=== PATIENT | female | born 1950 | race Caucasian/White ===

== ENCOUNTER 2023-01-23 11:20 | Outpatient (OUT) | payer MEDICARE, OTHER, SELFPAY ==
[2023-01-23 11:55] LABS: Basophils Percent Auto 0.5 % (0.2-2.0); Eosinophils Absolute Auto 0.1 10^3/uL (0.0-0.7); Eosinophils Percent Auto 2.4 % (0.9-7.0); Hematocrit 38.4 % (36.0-48.0); Hemoglobin 13.3 g/dL (12.0-16.0); Immature Granulocytes Abs Auto 0.01 10^3/uL (0.00-0.03); Immature Granulocytes Pct Auto 0.2 % (0.0-0.5); Lymphocytes Absolute Auto 1.7 10^3/uL (1.2-3.8); Mean Corpuscular HGB Conc 34.6 g/dL (29.9-35.2); Mean Corpuscular Hemoglobin 31.1 pg (26.7-34.0); Mean Corpuscular Volume 89.9 fL (81.0-99.0); Mean Platelet Volume 9.5 fL (9.5-13.5); Monocytes Absolute Auto 0.4 10^3/uL (0.3-0.8); Monocytes Percent Auto 7.7 % (1.7-12.0); Neutrophils Absolute Auto 3.5 10^3/uL (1.4-6.5); Neutrophils Percent Auto 60.2 % (43.0-75.0); Platelet Count 180 10^3/uL (150-450); Red Blood Count 4.27 10^6/uL (4.20-5.40); Red Cell Distribution Width 13.2 % (11.0-15.0); White Blood Count 5.7 10^3/uL (4.0-11.0)
[2023-01-23 13:12] LABS: Alanine Aminotransferase 42 U/L (14-59); Albumin Globulin Ratio 1.1; Alkaline Phosphatase 105 U/L (46-116); Aspartate Amino Transferase 43 U/L (15-37); BUN Creatinine Ratio 11.1; Bilirubin Direct 0.2 mg/dL (0.0-0.2); Bilirubin Total 0.7 mg/dL (0.2-1.0); Calcium 9.2 mg/dL (8.5-10.1); Chloride 107 mmol/L (98-107); Chol HDL Ratio 2.9; Cholesterol 140 mg/dL (<=200); Estimated GFR (African America >60 (>=60); Estimated GFR (Non-African Ame 50 (>=60); Globulin 3.7 g/dL; Glucose 117 mg/dL (74-106); HDL Cholesterol 48 mg/dL (40-60); Sodium 143 mmol/L (136-145); Thyroid Stimulating Hormone 2.052 uIU/mL (0.358-3.740); Total Protein 7.7 g/dL (6.4-8.2); Triglycerides 150 mg/dL (<=150)
[2023-01-23 17:03] LABS: Estimated Average Glucose 117 mg/dL; Glycohemoglobin A1C 5.7 % (4.5-6.2)
== END 2023-01-23 11:21 | disposition home or self-care (01) ==
LOC: LAB 11:24
PROVIDERS: PCP Family Medicine; Visit Provider Family Medicine
DX: I10 Essential (primary) hypertension (principal); R73.03 Prediabetes; Z79.899 Other long term (current) drug therapy; E66.01 Morbid (severe) obesity due to excess calories; E78.5 Hyperlipidemia, unspecified
CPT/HCPCS: 36415; 80048; 80061; 80076; 83036; 84443; 85025

== ENCOUNTER 2023-11-28 09:26 | Outpatient (OUT) | payer MEDICARE, OTHER, SELFPAY ==
--- NOTE | 2023-11-28 09:50 | MM_ITS ---
Patient Name: PARTH BOSS MR#: [id number] : 1950 Exam Date: 11/28/2023 Ordering Doctor: DR Latrell Mckeon . RADIOLOGY REPORT PROCEDURE: MM TOMOSYNTHESIS SCREENING BI COMPARISON: MG MAMM SCREEN 3D RONALD CAD, 11/24/2022. MG MAMM SCREEN 3D RONALD CAD, 11/11/2021. MG MAMM SCREEN 3D RONALD CAD, 11/05/2020. INDICATIONS: Screening Calculator Name NCI Breast Cancer Risk Assessment Tool 5 Year Breast Cancer Risk 2.00% Lifetime Breast Cancer Risk 5.10% Personal Breast Cancer No Personal Ovarian Cancer No Treatments None Family Cancers Father with lung cancer at age 45. LOCATION: [facility] BREAST COMPOSITION: The breasts are almost entirely fatty. FINDINGS: DIAGNOSTIC CATEGORY 2--BENIGN FINDING: RIGHT BREAST: No significant suspicious finding. Scattered benign-appearing calcifications are present. No significant change has occurred. LEFT BREAST: No significant suspicious finding. No significant change has occurred. RECOMMENDATIONS: ROUTINE MAMMOGRAM AND CLINICAL EVALUATION IN 12 MONTHS. PLEASE NOTE: A NORMAL MAMMOGRAM DOES NOT EXCLUDE THE POSSIBILITY OF BREAST CANCER. A CLINICALLY SUSPICIOUS PALPABLE LUMP SHOULD BE BIOPSIED. Dictated by: Mirza Cleveland M.D. on 11/28/2023 at 14:38 Approved by: Mirza Cleveland M.D. on 11/28/2023 at 15:15
== END 2023-11-28 09:27 | disposition home or self-care (01) ==
LOC: MAMMO 09:26
PROVIDERS: PCP Family Medicine; Visit Provider Family Medicine
DX: Z12.31 Encounter for screening mammogram for malignant neoplasm of breast (principal); Z80.1 Family history of malignant neoplasm of trachea, bronchus and lung
CPT/HCPCS: 77063; 77067

== ENCOUNTER 2024-03-07 15:13 | Outpatient (OUT) | payer MEDICARE, OTHER, SELFPAY ==
[2024-03-07 16:07] LABS: Thyroid Stimulating Hormone 2.782 uIU/mL (0.358-3.740)
[2024-03-09 07:11] LABS: Vitamin B12 361 pg/mL (232-1245)
== END 2024-03-07 15:14 | disposition home or self-care (01) ==
LOC: LAB 15:15
PROVIDERS: PCP Family Medicine; Visit Provider Psychiatry & Neurology Neurology
DX: R41.3 Other amnesia (principal)
CPT/HCPCS: 36415; 82607; 82746; 84443

== ENCOUNTER 2024-03-15 09:27 | Outpatient (OUT) | payer MEDICARE, OTHER, SELFPAY ==
--- NOTE | 2024-03-15 09:38 | MR_ITS ---
The [address] [address] Patient Name: PARTH BOSS MRN: [id number] date: 1950 Sex: F Assigned Patient Location: MRI Current Patient Location: MRI Accession/Order Number: [id number] Exam Date: 03/15/2024 09:50 Report Date: 03/15/2024 12:12 At the request of: DIOMEDES MATUTE Procedure: MR head/brain wo con EXAM: MR head/brain wo con HISTORY: Memory Loss R41.3 COMPARISON: None. TECHNIQUE: MRI of the brain was performed without contrast. FINDINGS: There is no restricted diffusion to suggest acute infarct. There is no midline shift, mass effect, or abnormal extraaxial fluid collections. There is mild generalized cerebral and cerebellar atrophy. There are a few nonspecific T2 bright foci in the supratentorial white matter, likely reflect chronic microvascular ischemic changes. The major intracranial flow voids are visualized. The cerebellar tonsils are normal in position. The orbits are unremarkable. The paranasal sinuses show no air-fluid level. There is mild mucoperiosteal thickening of bilateral ethmoid air cells. The mastoid air cells are clear. The calvarium and extracranial soft tissues are unremarkable. MR/MR head/brain wo con IMPRESSION: No acute intracranial abnormality. Mild chronic microvascular ischemic and involutional changes Electronically authenticated by: ARNOLD VARGAS Date: 03/15/2024 12:12
== END 2024-03-15 09:28 | disposition home or self-care (01) ==
LOC: MRI 09:28
PROVIDERS: PCP Family Medicine; Visit Provider Psychiatry & Neurology Neurology
DX: R41.3 Other amnesia (principal)
CPT/HCPCS: 70551

== ENCOUNTER 2024-04-09 09:32 | Outpatient (OUT) | payer MEDICARE, OTHER, SELFPAY ==
--- NOTE | 2024-04-09 | XR_ITS ---
The [address] [address] Patient Name: PARTH BOSS MRN: [id number] date: 1950 Sex: F Assigned Patient Location: Current Patient Location: Accession/Order Number: [id number] Exam Date: 04/09/2024 09:34 Report Date: 04/10/2024 07:25 At the request of: MARNIE PEMBERTON Procedure: XR foot RT min 3V PROCEDURE: XR foot RT min 3V COMPARISON: None. HISTORY: RIGHT FOOT PAIN FINDINGS: BONES:No acute fracture or dislocation. Mild to moderate degenerative changes most significant first metatarsal-phalangeal joint. Mild to moderate enthesopathic spurring of the calcaneus at the Achilles and plantar insertions. 2. Partially visualized screws in the distal tibia with fracture of one of the screws SOFT TISSUES:Negative. No visible soft tissue swelling. EFFUSION:None visible. OTHER: Negative. XR/XR foot RT min 3V IMPRESSION: Wzxs-oh-diivusej osteoarthritis Electronically authenticated by: WILLARD RUSSO Date: 04/10/2024 07:25
--- OUTSIDE RECORDS SUMMARY | 2024-04-09 09:54 | XMS_ITS | CCD ---
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 Role Phone FREDY, DR CHAPARRO Attending Unavailable NADERER, DR LATRELL Flood Primary Care Unavailable Zieber, DR Blue Consulting Unavailable HAY, DR CHAPARRO Admitting Unavailable GRECHNY, MARYCARMEN MAIER Consulting Unavailable NADERER, DR LATRELL Flood Primary Care Unavailable HIGHLANDER, MARNIE Fuentes Admitting Unavailable HIGHLANDER, MARNIE Fuentes Attending Unavailable Zieber, DR Blue Consulting Unavailable HIGHLANDER, MARNIE Fuentes Consulting Unavailable FLORES, YASMINE Consulting Unavailable NADERER, DR LATRELL Flood Primary Care Unavailable HIGHLANDER, MARNIE Fuentes Attending Unavailable HIGHLANDER, MARNIE Fuentes Consulting Unavailable HIGHLANDER, MARNIE Fuentes Admitting Unavailable WEST, DR WILLARD Cárdenas Consulting Unavailable NADERER, DR LATRELL Flood Primary Care Unavailable HIGHLANDER, MARNIE Fuentes Attending Unavailable HIGHLANDER, MARNIE Fuentes Admitting Unavailable HIGHLANDER, MARNIE Fuentes Consulting Unavailable AGUBOSIM, COREY Consulting Unavailable NADEGE, AMMAUDE Consulting Unavailable ARLEN ABBASI Consulting Unavailable NADERER, DR LATRELL Flood Admitting Unavailable NADEREOrtega, DR LATRELL Flood Attending Unavailable NADEREOrtega, DR LATRELL Flood Primary Care Unavailable Zieber, DR Blue Consulting Unavailable NADEREOrtega, DR LATRELL Flood Consulting Unavailable NADEREOrtega, DR LATRELL Flood Admitting Unavailable WEST, DR WILLARD Cárdenas Consulting Unavailable NADERER, DR LATRELL Flood Attending Unavailable NADERER, DR LATRELL Flood Primary Care Unavailable NADERER, DR LATRELL Flood Consulting Unavailable FREDY, DR CHAPARRO Consulting Unavailable CANDICEEREOrtega, DR LATRELL Flood Primary Care Unavailable FREDY, DR CHAPARRO Admitting Unavailable FREDY, DR CHAPARRO Attending Unavailable Guero OLIVO, Latrell Primary Care Provider GUERO, LATRELL Primary Care Physician GUERO, LATRELL Attending Unavailable CANDICEEREOrtega, LATRELL Attending Unavailable DIOMEDES MATUTE Attending Unavailable NADEREOrtega, LATRELL Referring Unavailable JUJUDIOMEDES PELAEZ Referring Unavailable DENBESTENLUCI Attending Unavailable NILL, Pa Vivas Referring Unavailable NILLPa Attending Unavailable Pa WEBB Admitting Unavailable Ameyamini, Wilson Talal Referring Unavaila ble Sarmini, Wilson Talal Attending Unavaila ble Sarmini, Wilson Talal Admitting Unavaila ble Sarmini, Wilson Talal Referring Unavaila ble Sarmini, Wilson Talal Attending Unavaila ble Sarmini, Wilson Talal Admitting Unavaila ble Sarmini, Wilson Talal Attending Unavaila ble NILLPa Attending Unavailable NADERELATRELL Vivas Referring Unavailable Allergies Allergy Classification Reported Allergen(s) Allergy Type Date of Onset Reaction(s) Facility (1 source) Amino Acids Drug Allergy [facility] Repository Medications Current Medications Medication Drug Class(es) Dates Sig (Normalized) Sig (Original) aspirin 81 mg delayed release oral tablet (6 sources) Platelet Aggregation Inhibitor, Nonsteroidal Anti-inflammatory Drug Start: 03-05-2021 take 1 tablet by mouth once daily aspirin 81 mg Oral EC Tab 81 mg = 1 tab(s), Oral, Daily, Refills(s) 0, Prophylaxis Start Date: 03/05/21 Status: Ordered atorvastatin 40 mg oral tablet (6 sources) HMG-CoA Reductase Inhibitor Start: 09-06-2023 take 1 tablet by mouth once daily atorvastatin 40 mg Tab 40 mg = 1 tab(s), Oral, Daily, Refills(s) 0, High cholesterol Start Date: 09/06/23 Status: Ordered take 1 tablet by mouth once buck y atorvastatin (Lipitor) 40 MG tablet Take 1 tablet by mouth 1 (one) time each day at the same time 0 Active Calcium (2 sources) Phosphate Binder, Calcium Start: 02-26-2024 take 1 tablet by mouth once daily Calcium Calcium, 1 tab, Oral, Daily Start Date: 02/26/24 Status: Ordered Start: 02-26-2024 Calcium Calciu m Start Date: 02/26/24 Status: Ordered calcium carbonate 1500 mg oral tablet (3 sources) take 1 tablet by mouth in the morning calcium carbonate 1500 (600 Ca) MG tablet Take 1 tablet by mouth in the morning and 1 tablet in the evening. Take with meals. 0 Active cholecalciferol 0.025 mg oral capsule (3 sources) Vitamin D take 1 capsule by mouth once daily cholecalciferol (Vitamin D-3) 25 MCG (1000 UT) capsule Take 1 capsule by mouth 1 (one) time each day at the same time 0 Active famotidine 40 mg oral tablet (6 sources) Histamine-2 Receptor Antagonist Start: 021 take 1 tablet by mouth once daily at bedtime famotidine 40 mg Tab 40 mg = 1 tab(s), Oral, Once a day (at bedtime), Refills(s) 0, Control of stomach acid Start Date: 03/03/21 Status: Ordered fluticasone propionate 0.05 mg/actuat metered dose nasal spray (6 sources) Corticosteroid Start: Flonase 0.05 mg/inh Vina 2 spray(s), Nasal, Daily, Refill(s) 0, Dry nasal passages Start Date: 09/06/23 Status: Ordered Start: 06-21-2023 take 2 spray(s) nasa l route in the morning fluticasone (Flonase) 50 MCG/ACT nasal spray Administer 2 sprays into each nostril in the morning. 0 06/21/2023 Active losartan potassium 25 mg oral tablet (6 sources) Angiotensin 2 Receptor Martin Start: 09-06-2023 take 1 tablet by mouth once daily losartan 25 mg Tab 25 mg = 1 tab(s), Oral, Daily, Refills(s) 0, High blood pressure Start Date: 09/06/23 Status: Ordered take 1 tablet by mouth once buck y losartan (Cozaar) 25 MG tablet Take 1 tablet by mouth 1 (one) time each day at the same time 0 Active pantoprazole 40 mg delayed release oral tablet (6 sources) Proton Pump Inhibitor Start: 03-03-[address] Tab 40 mg = 1 tab(s), Oral, Daily, Refills(s) 0, Control of stomach acid Start Date: 03/03/21 Status: Ordered tiotropium 0.018 mg inhalation powder (4 sources) Anticholinergic Start: 09-06-2023 take 1 capsule by inhalation once daily Spiriva HandiHaler 18 mcg inhalation capsule 18 mcg = 1 cap(s), Inhalation, Daily, Refills(s) 0, Shortness of breath or wheezing Start Date: 09/06/23 Status: Ordered Start: 05-23-2023 take 1 capsule by in halation in the morning Spiriva HandiHaler [address] 1 capsule into inhaler and inhale in the morning. 0 05/23/2023 Active Vitamin D3 1000 intl units (25 mcg) Tab (3 sources) Start: 09-06-2023 take 1 tablet by mouth once daily Vitamin D3 1000 intl units (25 mcg) Tab 25 mcg = 1 tab(s), Oral, Daily, Refills(s) 0, Prophylaxis Start Date: 09/06/23 Status: Ordered Vitamin E (5 sources) Start: 02-26-2024 vitamin E Oral , Daily, Refills(s) 0, Prophylaxis Start Date: 02/26/24 Status: Ordered Start: 02-26-2024 vitamin E Oral , Refills(s) 0 Start Date: 02/26/24 Status: Ordered take 1 capsule by [facility] once daily alpha tocopherol (Vitamin E) 400 units capsule Take 1 capsule by mouth 1 (one) time each day at the same time 0 Active zolpidem tartrate 12.5 mg extended release oral tablet (6 sources) gamma-Aminobutyric Acid-ergic Agonist Start: 03-03-2021 take 1 tablet by mouth once daily at bedtime as needed for sleep zolpidem 12.5 mg oral ER Tab 12.5 mg = 1 tab(s), Oral, Once a day (at bedtime), PRN for sleep, Refills(s) 0 Start Date: 03/03/21 Status: Ordered Completed/Discontinued Medications Medication Drug Class(es) Dates Sig (Normalized) Sig (Original) albuterol 0.83 mg/ml inhalation solution (2 sources) beta2-Adrenergic Agonist Start: 02-23-2024 albuterol 0.083% Inh Marlin 3 mL Refill(s) 0, 150 mL, 0 Refill(s), INHALE 3 ML(2.5 MG) BY NEBULIZER EVERY 4 HOURS NEEDED FOR SHORTNESS OF BREATH OR WHEEZING Start Date: 02/23/24 Status: Ordered donepezil hydrochloride 5 mg oral tablet (2 sources) Start: 02-23-2024 donepezil 5 mg Tab 30 EA, 0 Refill(s), TAKE 1 TABLET BY MOUTH AT BEDTIME, Refills(s) 0 Start Date: 02/23/24 Status: Ordered One A Day Women's Complete (3 sources) Start: 03-03-2021 One A Day Women's Complete Oral, Daily, Refill(s) 0, Prophylaxis Start Date: 03/03/21 Status: Ordered Problems Active Problems Problem Classification Problem Date Documented Da te Episodic/Chronic Abdominal hernia (13 sources) Diaphragmatic hernia without obstruction or gangrene; Translations: [Gastroesophageal reflux disease with hiatal hernia] Onset: 2 08-11-2023 Episodic Chronic obstructive pulmonary disease and bronchiectasis (10 sources) Chronic obstructive pulmonary disease, unspecified; Translations: [Chronic obstructive pulmonary disease with (acute) exacerbation] Onset: 2 08-11-2023 Chronic Disorders of lipid metabolism (9 sources) Hyperlipidemia, unspecified; Translations: [Dyslipidemia] Onset: 2 08-11-2023 Chronic Esophageal disorders (4 sources) Gastroesophageal reflux disease; Translations: [Gastroesophageal reflux disease without esophagitis] Onset: 4 09-06-2023 Chronic Essential hypertension (9 sources) Essential (primary) hypertension; Translations: [Benign essential hypertension] Onset: 2 08-11-2023 Chronic Miscellaneous mental health disorders (5 sources) Psychophysiologic insomnia; Translations: [Primary insomnia] Onset: 2 08-11-2023 Chronic Osteoarthritis (5 sources) Primary gonarthrosis, bilateral; Translations: [Bilateral primary osteoarthritis of knee] Onset: 4 08-11-2023 Chronic Other aftercare (4 sources) Patient encounter status; Translations: [Other bed bug exterminator (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 therapy] Onset: 4 08-11-2023 Episodic Other bone disease and musculoskeletal deformities (3 sources) Osteopenia; Translations: [Other specified disorders of bone density and structure, other site] Onset: 4 08-11-2023 Episodic Other gastrointestinal disorders (3 sources) Dysphagia; Translations: [Dysphagia, unspecified] Onset: 4 Episodic Other nutritional; endocrine; and metabolic disorders (1 source) Obesity, unspecified; Translations: [OBESITY UNSPECIFIED] Onset: 2 Chronic Other nutritional; endocrine; and metabolic disorders (1 source) Morbid (severe) obesity due to excess calories; Translations: [MORBID SEVERE OBES D/T EXCESS JULIO C] Onset: 2 Chronic Other nutritional; endocrine; and metabolic disorders (1 source) Body mass index (BMI) 38.0-38.9, adult; Translations: [BODY MASS INDEX BMI 38.0-38.9 ADULT] Onset: 2 Chronic Other nutritional; endocrine; and metabolic disorders (7 sources) Morbid obesity; Translations: [Morbid (severe) obesity due to excess calories] Onset: 4 08-11-2023 Chronic Other nutritional; endocrine; and metabolic disorders (2 sources) Body mass index 40+ - severely obese; Translations: [Body mass index (BMI) 40.0-44.9, adult] 08-11-2023 Chronic Other nutritional; endocrine; and metabolic disorders (3 sources) Body mass index 30+ - obesity 09-12-2023 Chronic Other screening for suspected conditions (not mental disorders or infectious disease) (8 sources) Encounter for screening mammogram for malignant neoplasm of breast; Translations: [Patient encounter status] Onset: 2 Episodic Other upper respiratory disease (4 sources) Allergic rhinitis due to pollen; Translations: [Allergic rhinitis due to pollen] Onset: 4 08-11-2023 Chronic Other upper respiratory disease (3 sources) Seasonal allergic rhinitis 09-06-2023 Chronic Residual codes; unclassified (1 source) Obstructive sleep apnea (adult) (pediatric); Translations: [OBSTRUCTIVE SLEEP APNEA] Onset: 2 Chronic Residual codes; unclassified (5 sources) Obstructive sleep apnea syndrome; Translations: [Obstructive sleep apnea (adult) (pediatric)] Onset: 4 08-11-2023 Chronic Residual codes; unclassified (3 sources) Sleep apnea 03-03-2021 Chronic Residual codes; unclassified (6 sources) Edema of lower extremity; Translations: [Localized edema] Onset: 4 08-11-2023 Episodic Residual codes; unclassified (3 sources) Insomnia 09-06-2023 Episodic Screening and history of mental health and substance abuse codes (5 sources) Personal history of nicotine dependence; Translations: [PERSONAL HISTORY OF NICOTINE DEPEND] Onset: 2 Episodic Transient cerebral ischemia (6 sources) Transient cerebral ischemia; Translations: [Transient cerebral ischemic attack, unspecified] Onset: 4 08-11-2023 Chronic Unclassified (2 sources) COUGH, UNSPECIFIED; Translations: [COUGH, UNSPECIFIED] Onset: 2 Unclassified (1 source) CONTACT W/AND (SUSP) EXPOS COVID-19; Translations: [CONTACT W/AND (SUSP) EXPOS COVID-19] Onset: 2 Unclassified (3 sources) Patient encounter status 09-12-2023 Viral infection (1 source) COVID-19; Translations: [COVID-19] Onset: 2 Past or Other Problems Problem Classification Problem Date Documented Da te Episodic/Chronic Complication of device; implant or graft (2 sources) Pain due to internal orthopedic prosthetic devices, implants and grafts, initial encounter; Translations: [Other specified complication of internal orthopedic prosthetic devices, implants and grafts, initial encounter] Onset: 09-16-2021 Episodic Fracture of lower limb (5 sources) Other fracture of upper and lower end of right fibula, subsequent encounter for closed fracture with routine healing; Translations: [Torus fracture of lower end of right fibula, subsequent encounter for fracture with routine healing] Onset: 09-03-2021 Episodic Genitourinary symptoms and ill-defined conditions (1 source) Personal history of urinary (tract) infections; Translations: [PERS HX URINARY TRACT INFECTIONS] Onset: 02-23-2022 Episodic Other aftercare (1 source) Other [facility] (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 therapy; Translations: [OTH [facility] CURRENT DRUG THERAPY] Onset: 02-23-2022 Episodic Other aftercare (1 source) superintendent container terminal (current) use of aspirin; Translations: [[facility] CURRENT USE OF ASPIRIN] Onset: 02-23-2022 Episodic Other bone disease and musculoskeletal deformities (1 source) Other specified disorders of bone density and structure, other site; Translations: [OTH D/O BONE DEN STRUCT OTH SITE] Onset: 09-16-2021 Episodic Other circulatory disease (1 source) Personal history of transient ischemic attack (TIA), and cerebral infarction without residual deficits; Translations: [PERS HX TIA AND CI NO RESID DEFICIT] Onset: 09-16-2021 Episodic Other lower respiratory disease (3 sources) Dyspnea, unspecified; Translations: [DYSPNEA UNSPECIFIED] Onset: 11-02-2021 Episodic Other lower respiratory disease (1 source) Shortness of breath; Translations: [SHORTNESS OF BREATH] Onset: 11-04-2021 Episodic Other non-traumatic joint disorders (1 source) Pain in right ankle and joints of right foot; Translations: [PAIN IN RIGHT ANKLE] Onset: 09-16-2021 Episodic Residual codes; unclassified (1 source) Family history of malignant neoplasm of trachea, bronchus and lung; Translations: [FAM HX MALIG NEOPLSM TRACH BRON LNG] Onset: 11-12-2021 Episodic Residual codes; unclassified (1 source) Asymptomatic menopausal state; Translations: [ASYMPTOMATIC MENOPAUSAL STATE] Onset: 09-16-2021 Episodic Spondylosis; intervertebral disc disorders; other back problems (1 source) Lumbago with sciatica, left side; Translations: [LUMBAGO WITH SCIATICA LEFT SIDE] Onset: 09-16-2021 Episodic Unclassified (1 source) COUGH, UNSPECIFIED; Translations: [COUGH, UNSPECIFIED] Onset: 02-22-2022 Results Test Name Value Interpretation Reference Range Facility Surgical Pathology Reporton 03-26-2024 [place] [address]- Surgical Pathology Report Collected Date/Time: 03/20/2024 12:52 EDT Pathologist: Pete Evans MD Received Date/Time: 03/21/2024 08:07 EDT Yovanny OLIVO, Katie Hairston MD, Katie Torres 07 Surgical Pathology Report - 03/26/2024 18:15 EDT - Auth (Verified) Final Diagnosis STOMACH, BIOPSY: - Antral-type gastric mucosa with reactive gastropathy and minimal chronic inactive gastritis. - No Helicobacter pylori microorganisms identified with immunohistochemical stain. (Electronic Signature) Yan. Cristina MD 03/26/2024 18:15 Clinical Information Pre-Op Diagnosis: Dysphagia, hiatal hernia, GERD Procedure: EGD Post-Op Diagnosis: 1. Esophageal landmarks identified, tortuous esophagus noted, no stricture noted 2. Large hiatal hernia suspect type III noted 3. Minimal patchy erythema in the antrum of the stomach, biopsied to rule out H. pylori 4. Minimal patchy nonspecific erythema in the duodenal bulb, otherwise normal examined duodenum Specimen(s) Received Gastric biopsy Gross Description Received in formalin labeled with patient name, number, and gastric biopsy are two fragments of lynch/pink tissue measuring 0.1 and 0.2 cm in greatest dimension. Specimen is entirely submitted in one cassette. (DC) DC:[facility] Microscopic Description Microscopic examination performed unless gross only specified. The use of one or more reagents in the above tests is regulated as an analyte specific reagent (ASR). The test or tests are ordered following initial H&E microscopic examination. The performance characteristics were determined by the Laboratory of [facility]. They have not been cleared or approved by the US Food and Drug Administration. The FDA has determined that such clearance or approval is not necessary. These tests are used for clinical purposes. They should not be regarded as investigational or for research. Appropriate positive and negative controls are performed and are acceptable. Normal [facility] Comment on above: Performed By: #### [id number] #### [facility] [address] [place] [address] XR Esophaguson 03-26-2024 XR Esophagus Exam Date/Time: 03/26/2024 10:39 EDT Reason for Exam: R13.10;Dysphagia Report IMPRESSION: LARGE HIATAL HERNIA. MILD SPASM AND TERTIARY CONTRACTIONS OF THE MID TO DISTAL THORACIC ESOPHAGUS. OTHERWISE, NEGATIVE ESOPHAGRAM. EXAM: XR Esophagus DATE: 03/26/2024 9:56 AM CLINICAL HISTORY: Dysphagia, R13.10. COMPARISON: None available. TECHNIQUE: A double contrast barium esophagram was performed in the upright and recumbent positions, with utilization of a 13 mm barium tablet. A total of 15.80 mGy Air Kerma (Ka, r) of fluoroscopy was used. FINDINGS: A large hiatal hernia contains the nearly fatty entire stomach. The esophagus is normal in caliber, with mild spasm and tertiary contractions of the mid to distal thoracic esophagus noted. There is no mucosal ring, discrete mass, ulcer, radiographic evidence of esophagitis, or visualized gastroesophageal reflux. Ordering Provider: Katie Hairston FINAL REPORT Dictated: 03/26/2024 10:53 am Anibal Londono MD Signed (Electronic Signature): 03/26/2024 10:53 am Signed by: Anibal Londono MD Transcribed by: NEAL Technologist: DENICE Technical Comments Radiation Dose: Ka,r in mGy = 15.80 DAP = 464.17 Normal [facility] Main OR Intraoperative Recor don 03-22-2024 Main OR Intraoperative Record Main OR Intraoperative Record IntraOp Document Type FT Summary Primary Physician: Katie Hairston MD Finalized Date/Time: 03/22/24 14:46:15 Pt. Name: SHEY BOSS /Sex: 1950 Female Med Rec #: [id number] Physician: Katie Hairston MD Financial #: [id number] Pt. Type: O Room/Bed: / Admit/Disch: 03/20/24 10:57:44 - 03/20/24 23:59:59 Institution: Case Times FT Entry 1 Patient Times In Room 03/20/24 12:44:00 Out Room 03/20/24 12:56:00 Procedure Times Start 03/20/24 12:49:00 Stop 03/20/24 12:53:00 Anesthesia Times Start 03/20/24 12:44:00 Stop 03/20/24 12:56:00 Last Modified By: John FORDE, Essence Marsh 03/20/24 12:56:30 General Comments: 03/22/24 Chart opened to review and send charges LRoth CSFA Case Attendance FT Entry 1 Entry 2 Entry 3 Case Attendee Mariella JOHNSON, Catalina Ivory CST, Katie Ferguson MD Role Performed SYSTEMS INTEGRATOR Scrub - Primary Surgeon - Primary Time In 03/20/24 12:44:00 03/20/24 12:44:00 03/20/24 12:44:00 Time Out 03/20/24 12:56:00 03/20/24 12:56:00 03/20/24 12:56:00 Procedure EGD(.) EGD(.) EGD(.) Comments Dr. Hairston supervising procedure. 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 [employer] - Primary Time In 03/20/24 12:44:00 Time Out 03/20/24 12:56:00 Procedure EGD(.) Comments Last Modified By: Essence Lopez RN 03/20/24 12:56:36 Perioperative Protocols FT Pre-Care Text: Implements protective measures prior to operative or invasive procedure, confirms identity before the operative or invasive procedure, verifies operative procedure, surgical site, and laterality Entry 1 Procedure(s) EGD(.) Patient Identity Birthday, ID Band Verified (select at Check, Patient least 2): Participation Consents / H and P Anesthesia Consent, Operative Site N/A Verified H&P, Surgery/Procedure Marking Verified Consent Surgical Site No Laterality Verified n/a Verified Procedure Verified Yes Correct Patient Yes Position Verified Availability Equipment, Medication Prep Dry n/a Verified (If Applicable) PreOp Antibiotic No Time Out Catalina Wolff CRNA, Given Participants Анна Ivory CST, Sarmini MD, Katie Torres, Essence Lopez RN Time Out Complete 03/20/24 12:46:00 Outcomes Met? Yes Last Modified By: Essence Lopez RN 03/20/24 12:46:45 Post-Care Text: The patient is free from signs and symptoms of injury caused by extraneous objects Allergy Information FT Pre-Care Text: Verifies allergies Entry 1 Allergies Reviewed? Yes Allergies Reviewed Self/Patient With Outcomes Met? Yes Last Modified By: Essence Lopez RN 03/20/24 12:46:53 Post-Care Text: The patient received appropriate medication(s) safely administered during the perioperative period Surgical Procedures FT Entry 1 Procedure Description Procedure EGD Modifiers . Surgeon Description EGD with gastric biopsy. Primary Procedure Yes Primary Surgeon Yovanny OLIVO, Katie Torres Start 03/20/24 12:49:00 Stop 03/20/24 12:53:00 Anesthesia Type General Surgical Service Gastroenterology Wound Class 2 - Clean-Contaminated Last Modified By: Essence Lopez RN 03/20/24 12:56:41 General Case Data FT Pre-Care Text: Classifies surgical wound, implements aseptic technique, initiates traffic control Entry 1 Case Information OR ENDO 1 FT Case Level Level 2 Wound Class 2 - Clean-Contaminated Specialty Gastroenterology ASA Class 3 Preop Diagnosis DYSPHAGIA, HIATIL Postop Same As Preop No HERNIA, GERD Postop Diagnosis Large hiatal hernia, Outcomes Met? Yes duodenitis, gastritis, tortuous esophagus Last Modified By: Essence Lopez RN 03/20/24 12:56:23 Post-Care Text: The patient is free from signs and symptoms of infection Skin Assessment (Pre Procedure) FT Pre-Care Text: Implements protective measures to prevent skin/ tissue injury due to thermal or mechanical sources Evaluates for signs and symptoms of physical injury to skin and tissue Entry 1 Skin Integrity Intact, [place], Warm, & Skin Abnormality No Dry Outcomes Met? Yes Last Modified By: Essence Lopez RN 03/20/24 12:47:45 Post-Care Text: The patient is free from signs and symptoms of injury caused by extraneous objects Patient Positioning FT Pre-Care Text: Identifies physical alterations that require additional precautions for procedure-specific positioning, verifies presence of prosthetics or corrective devices, positions the patient, evaluates the patient for signs and symptoms of injury as a result of positioning Entry 1 Procedure EGD(.) Body Position Lateral, right side up Feet Uncrossed? Yes Left Arm Position Resting at Side Right Arm Position Resting at Side Left Leg Position Extended Right Leg Position Extended Positioning (more content not included)... Normal [facility] Discharge Instructionson Discharge Instructions Discharge Instructions SHEY BOSS :1950 Visit Date:03/20/2024 Inpatient Discharge Instructions Your Care Team Admitting Physician - Katie Hairston MD Referring Physician - Katie Hairston MD Reason for Your Visit DYSPHAGIA, HIATIL HERNIA, GERD Your Diagnosis Dysphagia Tests Performed Pathology Tissue Exam -- Results Pending -- Please visit your patient portal for your results or contact your primary care physician. This Is Your Medications List Non-Formulary Medication (Calcium) albuterol (albuterol 0.083% Inh Marlin 3 mL) aspirin (aspirin 81 mg Oral EC Tab) atorvastatin (atorvastatin 40 mg Tab) cholecalciferol (Vitamin D3 1000 intl units (25 mcg) Tab) donepezil (donepezil 5 mg Tab) famotidine (famotidine 40 mg Tab) fluticasone nasal (Flonase 0.05 mg/inh Vina) losartan (losartan 25 mg Tab) multivitamin with minerals (One A Day Women's Complete) pantoprazole (Pantoprazole [address] Tab) vitamin E zolpidem (zolpidem 12.5 mg oral ER Tab) Procedure History Esophagogastroduodenosc opy (03/20/2024), Colonoscopy (10/13/2023), Hand tendon repaired, Meniscal repair, ORIF - Open reduction of fracture of ankle with internal fixation, Tonsillectomy. What to do next Instructions From Your Doctor Event Name Event Result Discharge Activity Resume normal activities in 24 hours Discharge Restrictions No driving for 24 hrs Discharge Diet(s) Regular Call Your Doctor For Persistent or heavy bleeding Discharge Instructions Discharge Instructions New Follow Up Appointments after Discharge Follow Up with Yovanny OLIVO, SENAIT Sifuentes MED When: Comments: Call for any problems. Office will call to schedule follow up appointment Where: Medications What How Much When Instructions Next Dose Unchanged albuterol (albuterol 0.083% Inh Marlin 3 mL) 150 mL, 0 Refill(s), INHALE 3 ML(2.5 MG) BY NEBULIZER EVERY 4 HOURS NEEDED FOR SHORTNESS OF BREATH OR WHEEZING Unchanged aspirin (aspirin 81 mg Oral EC Tab) 1 Tablets By Mouth Every day Unchanged atorvastatin (atorvastatin 40 mg Tab) 1 Tablets By Mouth Every day Unchanged cholecalciferol (Vitamin D3 1000 intl units (25 mcg) Tab) 1 Tablets By Mouth Every day Unchanged donepezil (donepezil 5 mg Tab) 30 EA, 0 Refill(s), TAKE 1 TABLET BY MOUTH AT BEDTIME Unchanged famotidine (famotidine 40 mg Tab) 1 Tablets By Mouth Once a day (at bedtime) Unchanged fluticasone nasal (Flonase 0.05 mg/ inh Vina) 2 Sprays Nasal Inhalation Every day Unchanged losartan (losartan 25 mg Tab) 1 Tablets By Mouth Every day Unchanged multivitamin with minerals (One A Day Women's Complete) By Mouth Every day Unchanged Non-Formulary Medication (Calcium) 1 tab By Mouth Every day Unchanged pantoprazole (Pantoprazole [address] Tab) 1 Tablets By Mouth Every day Unchanged vitamin E By Mouth Every day Unchanged zolpidem (zolpidem 12.5 mg oral ER Tab) 1 Tablets By Mouth Once a day (at bedtime) as needed for for sleep Test Results No qualifying data available. Allergies No Known Allergies Problems Ongoing - Any problem that you are currently receiving treatment for. BMI 39.0-39.9,adult Chronic obstructive pulmonary disease Dyslipidemia Dysphagia GERD (gastroesophageal reflux disease) Hiatal hernia HTN (hypertension) Insomnia Lower extremity edema Morbid obesity EDWIN (obstructive sleep apnea) Screening for malignant neoplasm of colon Seasonal allergic rhinitis TIA (transient ischemic attack) Historical - Any problem that you are no longer receiving treatment for. Hernia Sleep apnea Education Materials Duodenitis Duodenitis is when the lining of the first part of your small intestine (duodenum) becomes inflamed. It is often caused by a bacterial infection. You may also have open sores in your intestine called ulcers. Duodenitis may start all of a sudden and last for a short time (acute). It may also develop over time and last for months or years (chronic). What are the causes? The most common cause of this condition is an infection from a type of bacteria called Helicobacter pylori (H. pylori). Other causes include: ? Long-term use of NSAIDs, such as ibuprofen. ? Using too much alcohol. ? An infection of the small intestine caused by the Giardia parasite (giardiasis). ? Crohn's disease. ? Certain diseases of the body's defense system (immune system). ? Certain treatments for cancer. What increases the risk? You may be more likely to develop this condition if: ? You smoke cigarettes. ? You drink alcohol. ? You have a family history of duodenitis. ? You take NSAIDs. ? You eat a high-fat diet. What are the signs or symptoms? Symptoms of this condition may include: ? Epigastric pain. This is a gnawing or burning pain in the upper center of your abdomen. It may get worse when your stomach is empty and may get better (more content not included)... Normal [facility] Comment on above: Result Comment: Elec tronically Signed By: Kassy Barker I\.maikol\Date and Time Signed: 03/20/24 13:08 EDT Inpatient Patient Summaryon 03-20-2024 Inpatient Patient Summary Inpatient Patient Summary [address] [address] [facility] Clinical Discharge Instructions PERSON INFORMATION Name: SHEY BOSS [facility]#:[id number] PHYSICIANS Admitting Physician: Katie Hairston MD Attending Physician: Katie Hairston MD PCP: LATRELL JACK MD Diagnosis: Comment: PATIENT EDUCATION INFORMATION Instructions: Medication Leaflets: Follow up: MEDICATION LIST Medications to Continue with No Changes Other Medications albuterol (albuterol 0.083% Inh Marlin 3 mL) 150 mL, 0 Refill(s), INHALE 3 ML(2.5 MG) BY NEBULIZER EVERY 4 HOURS NEEDED FOR SHORTNESS OF BREATH OR WHEEZING., Responsible Provider: LATRELL JACK aspirin (aspirin 81 mg Oral EC Tab) 1 Tablets By Mouth every day. atorvastatin (atorvastatin 40 mg Tab) 1 Tablets By Mouth every day. cholecalciferol (Vitamin D3 1000 intl units (25 mcg) Tab) 1 Tablets By Mouth every day. donepezil (donepezil 5 mg Tab) 30 EA, 0 Refill(s), TAKE 1 TABLET BY MOUTH AT BEDTIME., Responsible Provider: LATRELL JACK famotidine (famotidine 40 mg Tab) 1 Tablets By Mouth once a day (at bedtime). fluticasone nasal (Flonase 0.05 mg/inh Vina) 2 Sprays Nasal Inhalation every day. losartan (losartan 25 mg Tab) 1 Tablets By Mouth every day. multivitamin with minerals (One A Day Women's Complete) By Mouth every day. Non-Formulary Medication (Calcium) 1 tab By Mouth every day. pantoprazole (Pantoprazole [address] Tab) 1 Tablets By Mouth every day. vitamin E By Mouth every day. zolpidem (zolpidem 12.5 mg oral ER Tab) 1 Tablets By Mouth once a day (at bedtime) as needed for sleep. Comment: Normal [facility] Main OR PACU I Recordon 03-10 Main OR PACU I Record Main OR PACU I Record PACU Phase I Document Type FT Summary Primary Physician: Katie Hairston MD Finalized Date/Time: 03/20/24 13:37:02 Pt. Name: SHEY BOSS Tamie/Sex: 1950 Female Med Rec #: [id number] Physician: Katie Hairston MD Financial #: [id number] Pt. Type: O Room/Bed: / Admit/Disch: 03/20/24 10:57:44 - Institution: Case Times PACU I FT Pre-Care Text: Identifies barriers to communication and implements measures to provide psychological support Develops individualized plan of care, and ensures continuity of care Maintains patient's dignity and privacy, and maintains patient confidentiality Identifies and reports philosophical, cultural, and spiritual beliefs and values Identifies individual values and wishes concerning care Implements aseptic technique, and administers prescribed antibiotic therapy and immunizing agents as ordered Evaluates postoperative tissue perfusion Implements thermoregulation measures, and monitors body temperature Evaluates postoperative respiratory status Evaluates postoperative cardiac status Evaluates postoperative neurological status Assesses pain control, collaborated in initiating patient-controlled analgesia and implements alternative methods of pain control Verifies allergies, administers prescribed medications and solutions, evaluates response to medications Entry 1 In PACU I 03/20/24 12:58:00 Discharge from PACU 03/20/24 13:28:00 I Outcomes Met? Yes Last Modified By: Kassy Barker I 03/20/24 13:36:48 Post-Care Text: The patient demonstrates knowledge of the expected response to the operative or invasive procedure The patient's care is consistent with the individualized perioperative plan of care The patient's right to privacy is maintained The patient's value system, lifestyle, ethnicity, and culture are considered, respected, and incorporated into the perioperative plan of care The patient participates in decisions affecting his or her perioperative plan of care The patient is free from signs and symptoms of infection The patient has wound/tissue perfusion consistent with or improved from baseline levels established preoperatively The patient is at or returning to normothermia at the conclusion of the immediate postoperative period The patient's respiratory function is consistent with or improved from baseline levels established preoperatively The patient's cardiovascular status is consistent with or improved from baseline levels established preoperatively The patient's cardiovascular status is consistent with or improved from baseline levels established preoperatively The patient demonstrates and/or reports adequate pain control throughout the perioperative period The patient received appropriate medication(s), safely administered during the perioperative period Acuity Level PACU I FT Entry 1 Start Time 03/20/24 12:58:00 Stop Time 03/20/24 13:28:00 Acuity Level Acuity Level I Last Modified By: Kassy Barker I 03/20/24 13:36:58 Finalized By: Kassy Barker I Document Signatures Signed By: Kassy Barker I 03/20/24 13:37 Normal [facility] Main OR Preoperative Recordo n 03-20-2024 Main OR Preoperative Record Main OR Preoperative Record Holding Area Document Type FT Summary Primary Physician: Katie Hairston MD Finalized Date/Time: 03/20/24 11:17:32 Pt. Name: SHEY BOSS Tamie/Sex: 1950 Female Med Rec #: [id number] Physician: Katie Hairston MD Financial #: [id number] Pt. Type: O Room/Bed: / Admit/Disch: 03/20/24 10:57:44 - Institution: Case Times Holding FT Pre-Care Text: Verifies consent for planned procedure, identifies individual values and wishes concerning care, includes family members in perioperative teaching Secures patient's records' belongings, and valuables, maintains patient's dignity and privacy, and maintains patient confidentiality Entry 1 In Holding 03/20/24 11:05:00 Outcomes Met? Yes Last Modified By: Essence Lopez RN 03/20/24 11:16:44 Post-Care Text: The patient participates in decisions affecting his or her perioperative plan of care The patient's right to privacy is maintained Surgery Checklist FT Entry 1 Patient Birthday, ID Band Procedure History and Physical, Identification: Check, Patient Verification: Surgical Consent, With Participation Patient NPO after Midnight: Yes Results Reviewed N/A Comments: Personal Items: Dentures Personal Items Dentures, metal to R Comment: ankle Complaints of Pain: No Pain Comment: Denies Operative Site n/a Availability Equipment Marking: Verified: Does Patient Smoke No Patient states Yes Comment - Adult [place]- niece postop adult Supervision supervision available Case Cancelled in No Holding Area see comments below for reason Last Modified By: Essence Lopez RN 03/20/24 11:17:28 Finalized By: Essence Lopez RN Document Signatures Signed By: Essence Lopez RN 03/20/24 11:17 Normal [facility] Outpatient Surgery Discharge Instructionon 03-20-2024 Outpatient Surgery Discharge Instruction Outpatient Surgery Discharge Instruction [place] [id number] Patient Discharge Instructions PERSON INFORMATION Name: SHEY BOSS Date of : 1950 Current Date: 03/20/2024 12:58:56 PHYSICIANS Admitting Physician: Yovanny OLIVO, Katie Torres Discharge Diagnosis: SHEY BOSS has been given the following list of follow-up instructions, prescriptions, and patient education materials: PATIENT FOLLOW-UP INFORMATION Diet: Regular Discharge Activity: Resume normal activities in 24 hours Discharge Restrictions: No driving for 24 hrs Call Your Doctor For: Persistent or heavy bleeding IF UNABLE TO CONTACT YOUR PHYSICIAN AND YOU FEEL IT IS AN EMERGENCY, GO TO THE NEAREST EMERGENCY ROOM OR CALL 911 I, SHEY BOSS, have received the attached patient education materials/instructions and have verbalized understanding: May we do a follow up call? Yes No I was present when discharge instructions were given Patient Signature Date Clinican/Nurse Signature _ Date Follow up: Pharmacy Information: You may receive a survey from Elisa [facility]ang asking you to rate your care experience. Your feedback is important and will help us understand what we do well and how we can improve the quality of care we provide to you, your loved ones and our community. It?s an honor to serve you. Thank you for choosing [facility] HERE ARE THE MEDICATION CHANGES THAT OCCURRED DURING YOUR HOSPITAL STAY Medications to Continue with No Changes Other Medications albuterol (albuterol 0.083% Inh Marlin 3 mL) 150 mL, 0 Refill(s), INHALE 3 ML(2.5 MG) BY NEBULIZER EVERY 4 HOURS NEEDED FOR SHORTNESS OF BREATH OR WHEEZING., Responsible Provider: LATRELL JACK aspirin (aspirin 81 mg Oral EC Tab) 1 Tablets By Mouth every day. atorvastatin (atorvastatin 40 mg Tab) 1 Tablets By Mouth every day. cholecalciferol (Vitamin D3 1000 intl units (25 mcg) Tab) 1 Tablets By Mouth every day. donepezil (donepezil 5 mg Tab) 30 EA, 0 Refill(s), TAKE 1 TABLET BY MOUTH AT BEDTIME., Responsible Provider: LATRELL JACK famotidine (famotidine 40 mg Tab) 1 Tablets By Mouth once a day (at bedtime). fluticasone nasal (Flonase 0.05 mg/inh Vina) 2 Sprays Nasal Inhalation every day. losartan (losartan 25 mg Tab) 1 Tablets By Mouth every day. multivitamin with minerals (One A Day Women's Complete) By Mouth every day. Non-Formulary Medication (Calcium) 1 tab By Mouth every day. pantoprazole (Pantoprazole [address] Tab) 1 Tablets By Mouth every day. vitamin E By Mouth every day. zolpidem (zolpidem 12.5 mg oral ER Tab) 1 Tablets By Mouth once a day (at bedtime) as needed for sleep. PATIENT EDUCATION INFORMATION Instructions: Medication Leaflets: Normal [facility] Proceduralon 03-20-2024 Procedural Procedural Patient: SHEY BOSS Age: 73 years Sex: Female : 1950 Associated Diagnoses: None Author: Daquan Schuler MD Postoperative Information Postoperative disposition: Postoperative disposition: To PACU. Optimetrix number: Optimetrix number [id number]. Anesthetic utilized: General. Health Status Allergies: Allergic Reactions (Selected) No Known Allergies Physical Examination Vital Signs 03/20/2024 13:23 EDT Heart Rate Monitored 66 bpm Respiratory Rate Monitored 15 br/min Systolic Blood Pressure 173 mmHg HI Diastolic Blood Pressure 81 mmHg Mean Arterial Pressure, Cuff 112 mmHg SpO2 94 % 03/20/2024 13:15 EDT Heart Rate Monitored 64 bpm Respiratory Rate Monitored 13 br/min Systolic Blood Pressure 159 mmHg HI Diastolic Blood Pressure 78 mmHg Mean Arterial Pressure, Cuff 105 mmHg SpO2 96 % 03/20/2024 13:05 EDT Heart Rate Monitored 64 bpm Respiratory Rate Monitored 12 br/min Systolic Blood Pressure 145 mmHg HI Diastolic Blood Pressure 76 mmHg Mean Arterial Pressure, Cuff 99 mmHg SpO2 96 % 03/20/2024 13:00 EDT Heart Rate Monitored 70 bpm Respiratory Rate Monitored 18 br/min Systolic Blood Pressure 123 mmHg Diastolic Blood Pressure 71 mmHg Mean Arterial Pressure, Cuff 88 mmHg SpO2 100 % 03/20/2024 12:58 EDT Temperature Temporal Artery 36.2 DegC LOW Heart Rate Monitored 68 bpm Respiratory Rate Monitored 16 br/min Systolic Blood Pressure 125 mmHg Diastolic Blood Pressure 65 mmHg Mean Arterial Pressure, Cuff 85 mmHg SpO2 96 % Pain Assessment: Controlled. General: Awake, Appropriate. Respiratory: Adequate air exchange. Cardiovascular: Stable. Neurological Assessment Anesthetic outcome No anesthetic complications noted. Adequate pain relief. Review / Management Condition: Stable. Plan Transfer/Discharge: Transfer/Discharge Discharge when meets criteria ( To home ). Normal [facility] Procedural Procedural Patient: SHEY BOSS Age: 73 years Sex: Female : 1950 Associated Diagnoses: None Author: Daquan Schuler MD Preoperative Information Anesthesia Preop Info: Time patient last ate or drank 03/20/2024 00:00:00. Anesthesia history: Patient history: slow to wake. Family history+: None. Informed consent: Signed by patient. Re-evaluation prior to induction: Initial evaluation reviewed: No significant change. Review of Systems Eye Ear/Nose/Mouth/Throat Respiratory: No shortness of breath, No cough. Cardiovascular: Negative, No chest pain. Gastrointestinal: Heartburn. Musculoskeletal Neurologic Health Status Allergies: Allergic Reactions (Selected) No Known Allergies, Allergies (1) Active Severity Reaction No Known Allergies None Documented Current medications: (Selected) Inpatient Medications Ordered Lactated Ringers IV Marlin 1000 mL 1,000 mL: 1,000 mL, IV, 100 mL/hr, Routine, Start date 03/20/24 12:41:00 EDT, 10 hour(s), Total volume (mL): 1,000, 100 kg, 2.12, m2 Sodium Chloride 0.9% IV Marlin 1000 mL 1,000 mL: 1,000 mL, IV, 20 mL/hr, Routine, Start date 03/20/24 6:54:00 EDT, 50 hour(s), Total volume (mL): 1,000, 100 kg, 2.12, m2 Documented Medications Documented Calcium: Calcium, 1 tab, Oral, Daily Flonase 0.05 mg/inh Vina: 2 spray(s), Nasal, Daily, Refill(s) 0, Dry nasal passages One A Day Women's Complete: Oral, Daily, Refill(s) 0, Prophylaxis Pantoprazole [address] Tab: 40 mg = 1 tab(s), Oral, Daily, Refills(s) 0, Control of stomach acid Vitamin D3 1000 intl units (25 mcg) Tab: 25 mcg = 1 tab(s), Oral, Daily, Refills(s) 0, Prophylaxis albuterol 0.083% Inh Marlin 3 mL: Refill(s) 0, 150 mL, 0 Refill(s), INHALE 3 ML(2.5 MG) BY NEBULIZER EVERY 4 HOURS NEEDED FOR SHORTNESS OF BREATH OR WHEEZING aspirin 81 mg Oral EC Tab: 81 mg = 1 tab(s), Oral, Daily, Refills(s) 0, Prophylaxis atorvastatin 40 mg Tab: 40 mg = 1 tab(s), Oral, Daily, Refills(s) 0, High cholesterol donepezil 5 mg Tab: 30 EA, 0 Refill(s), TAKE 1 TABLET BY MOUTH AT BEDTIME, Refills(s) 0 famotidine 40 mg Tab: 40 mg = 1 tab(s), Oral, Once a day (at bedtime), Refills(s) 0, Control of stomach acid losartan 25 mg Tab: 25 mg = 1 tab(s), Oral, Daily, Refills(s) 0, High blood pressure vitamin E: Oral, Daily, Refills(s) 0, Prophylaxis zolpidem 12.5 mg oral ER Tab: 12.5 mg = 1 tab(s), Oral, Once a day (at bedtime), PRN for sleep, Refills(s) 0, Home Medications (13) Active albuterol 0.083% Inh Marlin 3 mL aspirin 81 mg Oral EC Tab 81 mg = 1 tab(s), Oral, Daily atorvastatin 40 mg Tab 40 mg = 1 tab(s), Oral, Daily Calcium 1 tab, Oral, Daily donepezil 5 mg Tab famotidine 40 mg Tab 40 mg = 1 tab(s), Oral, Once a day (at bedtime) Flonase 0.05 mg/inh Vina 2 spray(s), Nasal, Daily losartan 25 mg Tab 25 mg = 1 tab(s), Oral, Daily One A Day Women's Complete , Oral, Daily Pantoprazole [address] Tab 40 mg = 1 tab(s), Oral, Daily Vitamin D3 1000 intl units (25 mcg) Tab 25 mcg = 1 tab(s), Oral, Daily vitamin E , Oral, Daily zolpidem 12.5 mg oral ER Tab 12.5 mg = 1 tab(s), PRN, Oral, Once a day (at bedtime) , Medications (2) Active Scheduled: (0) Continuous: (2) Lactated Ringers 1,000 mL 1,000 mL, IV, 100 mL/hr Sodium Chloride 0.9% 1,000 mL 1,000 mL, IV, 20 mL/hr PRN: (0) Problem list: All Problems BMI 39.0-39.9,adult / SNOMED CT 741334375 / Confirmed Chronic obstructive pulmonary disease / SNOMED CT 12697009 / Confirmed Dyslipidemia / SNOMED CT 8590104127 / Confirmed Dysphagia / SNOMED CT 22410702 / Confirmed GERD (gastroesophageal reflux disease) / SNOMED CT 052249668 / Confirmed Hiatal hernia / SNOMED CT 914651144 / Confirmed HTN (hypertension) / SNOMED CT 1789669002 / Confirmed Insomnia / SNOMED CT 665786457 / Confirmed Lower extremity edema / SNOMED CT 786884194 / Confirmed Morbid obesity / SNOMED CT 573201546 / Confirmed EDWIN (obstructive sleep apnea) / SNOMED CT 029093926 / Confirmed Screening for malignant neoplasm of colon / SNOMED CT 241423556 / Confirmed Seasonal allergic rhinitis / SNOMED CT 183539822 / Confirmed TIA (transient ischemic attack) / SNOMED CT 393296467 / Confirmed Resolved: At risk for falls / SNOMED CT 555806223 Problem added when Risk for Falls Careplan was initiated. Resolved due to patient discharge. Resolved: Hernia / SNOMED CT 011569264 Resolved: Potential for deficient knowledge of cerebrovascular accident (CVA) / IMO [id number] problem added based on Stroke Powerplan ordered. Resolved due to patient discharge. Resolved: Sleep apnea / SNOMED CT 073398375, Active Problems (14) BMI 39.0-39.9,adult Chronic obstructive pulmonary disease Dyslipidemia Dysphagia GERD (gastroesophageal reflux disease) Hiatal hernia HTN (hypertension) Insomnia Lower extremity edema Morbid obesity EDWIN (obstructive sleep apnea) Screening for malignant neoplasm of colon Seasonal allergic rhinitis TIA (transient ischemic (more content not included)... Normal [facility] Ambulatory Visit Summaryon 0 02-26-2024 Ambulatory Visit Summary Ambulatory Visit Summary SHEY BOSS :1950 Visit Date:02/26/2024 Ambulatory Visit Instructions Your Diagnosis Dysphagia Hiatal hernia GERD (gastroesophageal reflux disease) Your Care Team Attending Physician - Katie Hairston MD Primary Care Physician - LATRELL JACK MD This Is Your Medications List Contact prescribing physician if questions or concerns Non-Formulary Medication (Calcium) albuterol (albuterol 0.083% Inh Marlin 3 mL) aspirin (aspirin 81 mg Oral EC Tab) atorvastatin (atorvastatin 40 mg Tab) cholecalciferol (Vitamin D3 1000 intl units (25 mcg) Tab) donepezil (donepezil 5 mg Tab) famotidine (famotidine 40 mg Tab) fluticasone nasal (Flonase 0.05 mg/inh Vina) losartan (losartan 25 mg Tab) multivitamin with minerals (One A Day Women's Complete) pantoprazole (Pantoprazole [address] Tab) vitamin E zolpidem (zolpidem 12.5 mg oral ER Tab) Procedures Performed Colonoscopy (10/13/2023), Hand tendon repaired, Meniscal repair, ORIF - Open reduction of fracture of ankle with internal fixation, Tonsillectomy. Discharge Vitals Heart Rate (Peripheral) 66 Respiratory Rate 16 Blood Pressure 131/81 Height 162 cm Height 64 in Weight 100 kg Weight 220 lb BMI 38.1 Medications What How Much When Instructions Unchanged albuterol (albuterol 0.083% Inh Marlin 3 mL) 150 mL, 0 Refill(s), INHALE 3 ML(2.5 MG) BY NEBULIZER EVERY 4 HOURS NEEDED FOR SHORTNESS OF BREATH OR WHEEZING Contact prescribing physician if questions or concerns Unchanged aspirin (aspirin 81 mg Oral EC Tab) 1 Tablets By Mouth Every day Contact prescribing physician if questions or concerns Unchanged atorvastatin (atorvastatin 40 mg Tab) 1 Tablets By Mouth Every day Contact prescribing physician if questions or concerns Unchanged cholecalciferol (Vitamin D3 1000 intl units (25 mcg) Tab) 1 Tablets By Mouth Every day Contact prescribing physician if questions or concerns Unchanged donepezil (donepezil 5 mg Tab) 30 EA, 0 Refill(s), TAKE 1 TABLET BY MOUTH AT BEDTIME Contact prescribing physician if questions or concerns Unchanged famotidine (famotidine 40 mg Tab) 1 Tablets By Mouth Once a day (at bedtime) Contact prescribing physician if questions or concerns Unchanged fluticasone nasal (Flonase 0.05 mg/ inh Vina) 2 Sprays Nasal Inhalation Every day Contact prescribing physician if questions or concerns Unchanged losartan (losartan 25 mg Tab) 1 Tablets By Mouth Every day Contact prescribing physician if questions or concerns Unchanged multivitamin with minerals (One A Day Women's Complete) By Mouth Every day Contact prescribing physician if questions or concerns Unchanged Non-Formulary Medication (Calcium) Contact prescribing physician if questions or concerns Unchanged pantoprazole (Pantoprazole [address] Tab) 1 Tablets By Mouth Every day Contact prescribing physician if questions or concerns Unchanged vitamin E By Mouth Contact prescribing physician if questions or concerns Unchanged zolpidem (zolpidem 12.5 mg oral ER Tab) 1 Tablets By Mouth Once a day (at bedtime) as needed for for sleep Contact prescribing physician if questions or concerns Allergies No Known Allergies Problems Ongoing - Any problem that you are currently receiving treatment for. BMI 39.0-39.9,adult Chronic obstructive pulmonary disease Dyslipidemia Dysphagia GERD (gastroesophageal reflux disease) Hiatal hernia HTN (hypertension) Insomnia Lower extremity edema Morbid obesity EDWIN (obstructive sleep apnea) Screening for malignant neoplasm of colon Seasonal allergic rhinitis TIA (transient ischemic attack) Historical - Any problem that you are no longer receiving treatment for. Hernia Sleep apnea Patient Survey You may receive a survey via text or e-mail asking about your office visit. Please share your experience with us by completing your survey. We appreciate your feedback and thank you for choosing us for your care. Normal [facility] Gastroenterology Office/Clin ic Noteon 02-26-2024 Gastroenterology Office/Clinic Note Gastroenterology Office/Clinic Note Chief Complaint dysphagia HPI Staff Patient is a 73 year old female who was referred by Guero for dysphagia and HH w/GERD. Takes Pantoprazole 40mg BID and Pepcid 40mg @ HS for GERD. Denies breakthrough reflux/indigestion. Takes Aspirin 81mg daily. Denies GLP-1 agonists. Dysphagia: When did it start: few months ago. Solids or liquids: solids (breads/meats) Frequency ( every meal? Or less often): no, but most. Previous EGD? no coughing when she lays down hoarseness Colonoscopy 10/13/23 w/Dr. Webb: Findings The bowel was normal throughout the extent examined. Recommendations: Repeat colonoscopy:: In 10 years. XR Chest 03/03/21: IMPRESSION: NO ACTIVE PULMONARY DISEASE. A LARGE HIATAL HERNIA. History of Present Illness More in the throat, also scratch make me cough more with meat, has to push down with water also starts coughing no concern for aspiration with liquids Review of Systems PHQ Score Initial Depression Screen Score: 0 SCORE Physical Exam Vitals & Measurements HR: 66(Peripheral) RR: 16 BP: 131/81 HT: 64 in HT: 162 cm WT: 100 kg WT: 220 lb BMI: 38.1 Assessment/Plan 1. Dysphagia (R13.10: Dysphagia, unspecified) mostly solids, more frequent now, worsening has large hiatal hernia lost some weight because she is afraid to eat proceed with EGD with dilation (donna) Differential includes mechanical causes for dysphagia including Schatzki ring, strictures, cannot rule out malignancy, but also we discussed with large hiatal hernias, esophagus becomes more torturous and therefore evaluation for surgery might be needed if symptoms are that bad 2. Hiatal hernia (K44.9: Diaphragmatic hernia without obstruction or gangrene) reports she had esophagram in [place] no egd in the past declined surgery for the hernia 3. GERD (gastroesophageal reflux disease) (K21.9: Gastro-esophageal reflux disease without esophagitis) Controlled with pantoprazole and famotidine Follow-up No qualifying data available Problem List/Past Medical History Ongoing BMI 39.0-39.9,adult Chronic obstructive pulmonary disease Dyslipidemia Dysphagia GERD (gastroesophageal reflux disease) Hiatal hernia HTN (hypertension) Insomnia Lower extremity edema Morbid obesity EDWIN (obstructive sleep apnea) Screening for malignant neoplasm of colon Seasonal allergic rhinitis TIA (transient ischemic attack) Historical Hernia Sleep apnea Procedure/Surgical History Colonoscopy (10/13/2023), Hand tendon repaired, Meniscal repair, ORIF - Open reduction of fracture of ankle with internal fixation, Tonsillectomy. Medications albuterol 0.083% Inh [place]lin 3 mL aspirin 81 mg Oral EC Tab, 81 mg= 1 tab(s), Oral, Daily atorvastatin 40 mg Tab, 40 mg= 1 tab(s), Oral, Daily Calcium donepezil 5 mg Tab famotidine 40 mg Tab, 40 mg= 1 tab(s), Oral, Once a day (at bedtime) Flonase 0.05 mg/inh Vina, 2 spray(s), Nasal, Daily losartan 25 mg Tab, 25 mg= 1 tab(s), Oral, Daily One A Day Women's Complete, Oral, Daily Pantoprazole [address] Tab, 40 mg= 1 tab(s), Oral, Daily Vitamin D3 1000 intl units (25 mcg) Tab, 25 mcg= 1 tab(s), Oral, Daily vitamin E, Oral zolpidem 12.5 mg oral ER Tab, 12.5 mg= 1 tab(s), Oral, Once a day (at bedtime), PRN Allergies No Known Allergies Social History Alcohol 1-2 times per year, 03/03/2021 Substance Abuse - Denies Substance Abuse, 09/12/2023 Tobacco Former smoker, quit more than 30 days ago Tobacco Use:., 02/26/2024 Former smoker, quit more than 30 days ago Tobacco Use:. Never Smokeless Tobacco Use:. Cigarettes, 09/12/2023 Family History Alcoholism: Father. Alzheimer's disease: Mother. COPD: Father. Cardiac arrest: Mother. Primary malignant neoplasm of lung: Father. Immunizations Vaccine Date Status Comments influenza virus vaccine, inactivated 04/2023 Recorded influenza virus vaccine, inactivated 05/03/2022 Recorded SARS-CoV-2 (COVID-19) [id number] 05/03/2022 Recorded influenza virus vaccine, inactivated 04/12/2021 Recorded SARS-CoV-2 (COVID-19) mRNA BNT-162b2 vax 04/12/2021 Recorded 2023-09-06: [id number] SARS-CoV-2 (COVID-19) mRNA BNT-162b2 vax 09/14/2020 Recorded 2023-09-06: TPV65 SARS-CoV-2 (COVID-19) mRNA BNT-162b2 vax 08/27/2020 Recorded 2023-09-06: TPV65 influenza virus vaccine, inactivated 06/16/2020 Recorded pneumococcal 23-valent vaccine 05/16/2019 Recorded influenza virus vaccine, inactivated 05/16/2019 Recorded influenza virus vaccine, inactivated 05/12/2018 Recorded pneumococcal 13-valent vaccine 01/31/2018 Recorded influenza virus vaccine, inactivated 05/10/2016 Recorded influenza virus vaccine, inactivated 04/16/2015 Recorded Normal [facility] Comment on above: Result Comment: Elec tronically Signed By: Yovanny OLIVO, Katie Torres\.br\Date and Time Signed: 02/26/24 09:38 EDT IntraOperative Documentson 0 10-19-2023 IntraOperative Documents [id number] 0TIFF [facility] Consenton 10-16-2023 Consent [id number] TIFF [facility] Discharge Instructionson Discharge Instructions [id number] TIFF [facility] Main OR Intraoperative Recor don 10-16-2023 Main OR Intraoperative Record IntraOp Document Type FT Summary Primary Physician: Pa WEBB MD Finalized Date/Time: 10/16/23 09:46:21 Pt. Name: SHEY BOSS/Sex: 1950 Female Med Rec #: [id number] Physician: TRACEY OLIVO, Pa Vivas Financial #: [id number] Pt. Type: O Room/Bed: / Admit/Disch: 10/13/23 07:49:21 - 10/13/23 23:59:59 Institution: Case Times FT Entry 1 Patient Times In Room 10/13/23 08:55:00 Out Room 10/13/23 09:16:00 Procedure Times Start 10/13/23 08:59:00 Stop 10/13/23 09:12:00 Anesthesia Times Start 10/13/23 08:55:00 Stop 10/13/23 09:16:00 Time at [place] 10/13/23 09:03:00 Last Modified By: Kimberly Infante RN 10/13/23 09:16:34 General Comments: 10/16/23 Chart opened for charge review only per Danilo Bennett RN. [place] Case Attendance FT Entry 1 Entry 2 Entry 3 Case Attendee Valentin Schrader MD, Pa Infante RN, Kimberly Gross Role Performed Anesthesiologist Surgeon - Primary Charcoal [employer]er [employer] - Primary Lyft Driver Time In 10/13/23 08:55:00 10/13/23 08:55:00 10/13/23 08:55:00 Time Out 10/13/23 09:16:00 10/13/23 09:16:00 10/13/23 09:16:00 Procedure COLONOSCOPY(.) COLONOSCOPY(.) COLONOSCOPY(.) Comments DR BETHEA SUPERVISING Last Modified By: Naresh FORDE, Kimberly Infante RN, Kimberly Infante RN, Kimberly Gross 10/13/23 09:16:35 10/13/23 09:16:35 10/13/23 09:16:35 Entry 4 Case Attendee Vinita Hitchcock Role Performed Scrub - Primary Time In 10/13/23 08:55:00 Time Out 10/13/23 09:16:00 Procedure COLONOSCOPY(.) Comments Last Modified By: Kimberly Infante RN 10/13/23 09:16:35 Perioperative Protocols FT Pre-Care Text: Implements protective measures prior to operative or invasive procedure, confirms identity before the operative or invasive procedure, verifies operative procedure, surgical site, and laterality Entry 1 Procedure(s) COLONOSCOPY(.) Patient Identity Birthday, ID Band Verified (select at Check, Patient least 2): Participation Consents / H and P Anesthesia Consent, Operative Site N/A Verified HandP, Surgery/Procedure Marking Verified Consent Surgical Site Yes Laterality Verified n/a Verified Procedure Verified Yes Correct Patient Yes Position Verified Availability Equipment, Medication Prep Dry n/a Verified (If Applicable) PreOp Antibiotic No Time Out Valentin Schrader, Given Participants Pa WEBB MD, [place], Micala E, Kimberly Infante RN Time Out Complete 10/13/23 08:58:00 Outcomes Met? Yes Last Modified By: Kimberly Infante RN 10/13/23 08:58:55 Post-Care Text: The patient is free from signs and symptoms of injury caused by extraneous objects Allergy Information FT Pre-Care Text: Verifies allergies Entry 1 Allergies Reviewed? Yes Allergies Reviewed Self/Patient With Outcomes Met? Yes Last Modified By: Kimberly Infante RN 10/13/23 08:35:23 Post-Care Text: The patient received appropriate medication(s) safely administered during the perioperative period Surgical Procedures FT Entry 1 Procedure Description Procedure COLONOSCOPY Modifiers . Surgeon Description COLONOSCOPY Primary Procedure Yes Primary Surgeon Pa WEBB MD Start 10/13/23 08:59:00 Stop 10/13/23 09:12:00 Anesthesia Type General Surgical Service General Wound Class 2 - Clean-Contaminated Last Modified By: Kimberly Infante RN 10/13/23 09:16:44 General Case Data FT Pre-Care Text: Classifies surgical wound, implements aseptic technique, initiates traffic control Entry 1 Case Information OR ENDO 2 FT Case Level Level 2 Wound Class 2 - Clean-Contaminated Specialty General ASA Class 3 Preop Diagnosis SCREENING Postop Same As Preop No Postop Diagnosis NORMAL COLONOSCOPY Outcomes Met? Yes Last Modified By: Kimberly Infante RN 10/13/23 09:12:31 Post-Care Text: The patient is free from signs and symptoms of infection Skin Assessment (Pre Procedure) FT Pre-Care Text: Implements protective measures to prevent skin/ tissue injury due to thermal or mechanical sources Evaluates for signs and symptoms of physical injury to skin and tissue Entry 1 Skin Integrity Intact, [place], Warm, and Skin Abnormality No Dry Outcomes Met? Yes Last Modified By: Kimberly Infante RN 10/13/23 08:59:24 Post-Care Text: The patient is free from signs and symptoms of injury caused by extraneous objects Patient Positioning FT Pre-Care Text: Identifies physical alterations that require additional precautions for procedure-specific positioning, verifies presence of prosthetics or corrective devices, positions the patient, evaluates the patient for signs and symptoms of injury as a result of positioning Entry 1 Procedure COLONOSCOPY(.) Body Position Lateral, right side up Feet Uncrossed? Yes Left Arm Position Resting at Side Right Arm Position Resting at Side Left Leg Position Extended Right Leg Position Extended Positioning Device Pillow Under Head Large Press Points Checked Yes By Kimberly Infante RN Outcomes Met? Yes Last Modified By: Remigio Infante RN (more content not included)... Normal [facility] Postoperative Documentson Postoperative Documents [id number] TIFF Normal [facility] Reminderson 10-16-2023 Reminders - From: Nhi Aguirre LPN To: GSN - Clinical; Sent: 10/16/2023 10:15:48 EDT Show up: 09/11/2033 07:00:00 EST Subject: colonoscopy recall Due Date/Time: 10/12/2033 07:00:00 EDT Reminder/Recall Patient due for screening colonoscopy 10/12/2033. Normal [facility] Colonoscopy Procedure Report on 10-13-2023 Colonoscopy Procedure Report Patient: SHEY BOSS Age: 73 years Sex: Female : 1950 Associated Diagnoses: None Author: Pa WEBB MD Pre-Procedure Procedure Date 10/13/2023 09:25:00 . Procedure Type: Colonoscopy. Procedure provider Performed by Pa WEBB MD. Referred by LATRELL JACK MD. Current history and physical Documented on chart. Family History Colorectal neoplasm risk assessment Average risk. Informed Consent After discussing the rationale, risks and benefits, and alternatives to this procedure, the patient provided signed consent for the procedure. Pre-procedure diagnosis: Age 50 years or over. ASA Classification: Class II. . Monitoring: See anesthesia record. . Procedure The procedure was performed in the hospital. See anesthesia record for sedation given during procedure. Rectal exam was performed and was normal. The patient was positioned starting in the left lateral decubitus position. Endoscope type used was an adult-size. The endoscope was lubricated then introduced through the anus. The scope was advanced to the cecum verified by photographing the appendiceal orifice, verified by photographing the ileocecal valve. No difficulties encountered during the procedure. The bowel preparation quality was good and was adequate (see polyps greater than or equal to 6 millimeters). The patient tolerated the procedure well. Findings The bowel was normal throughout the extent examined. Images Procedure images: anal canal [id number] ileocecalvalve [id number] appendiceal orificie . Post-Procedure Complications: none. Estimated blood loss: none. Specimens: none. Devices/ implants: none left in place. Impression and Plan Diagnosis: Encounter for screening for malignant neoplasm of rectum (DUD29-JO Z12.12, Discharge, Medical). Course: Progressing as expected. Recommendations: Repeat colonoscopy:: In 10 years. Follow-up:: if problems/questions. Diet:: Regular diet. Medication resumption:: Continue current medications. Return to activities:: After 24 hours. Education and Follow-up: Counseled: Family. [facility] Comment on above: Other Comment: Samreen dueñas Attachment - attachment storage system not supported [id number] Can be viewed in source systemMissing Attachment - attachment storage system not supported [id number] Can be viewed in source systemMissing Attachment - attachment storage system not supported [id number] Can be viewed in source systemMissing Attachment - attachment storage system not supported [id number] Can be viewed in source systemMissing Attachment - attachment storage system not supported [id number] Can be viewed in source system Consent for Treatmenton Consent for Treatment [id number] IFF [facility] Discharge Instructionson Discharge Instructions SHEY BOSS :1950 Visit Date:10/13/2023 Inpatient Discharge Instructions Your Care Team Admitting Physician - Pa WEBB MD Referring Physician - Pa WEBB MD Reason for Your Visit SCREENING Your Diagnosis Encounter for colorectal cancer screening Encounter for screening for malignant neoplasm of rectum This Is Your Medications List aspirin (aspirin 81 mg Oral EC Tab) atorvastatin (atorvastatin 40 mg Tab) cholecalciferol (Vitamin D3 1000 intl units (25 mcg) Tab) famotidine (famotidine 40 mg Tab) fluticasone nasal (Flonase 0.05 mg/inh Vina) losartan (losartan 25 mg Tab) multivitamin with minerals (One A Day Women's Complete) pantoprazole (Pantoprazole [address] Tab) tiotropium (Spiriva HandiHaler 18 mcg inhalation capsule) zolpidem (zolpidem 12.5 mg oral ER Tab) Procedure History Colonoscopy (10/13/2023), Hand tendon repaired, Meniscal repair, ORIF - Open reduction of fracture of ankle with internal fixation, Tonsillectomy. Discharge Vitals Temperature (Temporal Artery) 36.2 ?C Heart Rate (Monitored) 70 Respiratory Rate 15 Blood Pressure 134/71 Height 162.5 cm Weight 103 kg BMI 39.01 What to do next Instructions From Your Doctor Event Name Event Result Discharge Activity Resume normal activities in 24 hours, Arrange for a responsible adult supervision for 24 hours Discharge Restrictions No driving for 24 hrs, Do not operate machinery or tools, Do not make important decisions for 24 hours, Do not drink alcoholic beverages for 24 hours Discharge Diet(s) Regular Call Your Doctor For Persistent or heavy bleeding, Temperature above 101.5 degrees, Redness, swelling, or pus at operative site, Severe pain at the operative site, Persistent vomiting Discharge Instructions Discharge Instructions New Follow Up Appointments after Discharge Follow Up with Pa WEBB When: Only if needed Where: [facility], [facility] [address] [address]- Business (1) Medications What How Much When Instructions Next Dose Unchanged aspirin (aspirin 81 mg Oral EC Tab) 1 Tablets By Mouth Every day Unchanged atorvastatin (atorvastatin 40 mg Tab) 1 Tablets By Mouth Every day Unchanged cholecalciferol (Vitamin D3 1000 intl units (25 mcg) Tab) 1 Tablets By Mouth Every day Unchanged famotidine (famotidine 40 mg Tab) 1 Tablets By Mouth Once a day (at bedtime) Unchanged fluticasone nasal (Flonase 0.05 mg/ inh Vina) 2 Sprays Nasal Inhalation Every day Unchanged losartan (losartan 25 mg Tab) 1 Tablets By Mouth Every day Unchanged multivitamin with minerals (One A Day Women's Complete) By Mouth Every day Unchanged pantoprazole (Pantoprazole [address] Tab) 1 Tablets By Mouth Every day Unchanged tiotropium (Spiriva HandiHaler 18 mcg inhalation capsule) 1 Capsules Inhalation Every day Unchanged zolpidem (zolpidem 12.5 mg oral ER Tab) 1 Tablets By Mouth Once a day (at bedtime) as needed for for sleep Test Results No qualifying data available. Allergies No Known Allergies Problems Ongoing - Any problem that you are currently receiving treatment for. BMI 39.0-39.9,adult Chronic obstructive pulmonary disease Dyslipidemia GERD (gastroesophageal reflux disease) Hiatal hernia HTN (hypertension) Insomnia Lower extremity edema Morbid obesity EDWIN (obstructive sleep apnea) Screening for malignant neoplasm of colon Seasonal allergic rhinitis TIA (transient ischemic attack) Historical - Any problem that you are no longer receiving treatment for. Hernia Sleep apnea Education Materials Colonoscopy Care After Surgery Please read the instructions outlined below and refer to this sheet in the next few weeks. These discharge instructions provide you with general information on caring for yourself after you leave the hospital. Your doctor may also give you specific instructions. While your treatment has been planned according to the most current medical practices available, unavoidable complications occasionally occur. If you have any problems or questions after discharge, please call your doctor. ACTIVITY You may resume your regular activity, but move at a slower pace for the next 24 hours. Take frequent rest periods for the next 24 hours. Walking will help get rid of the air and reduce the bloated feeling in your abdomen (belly). No driving for 24 hours (because of the anesthesia (medicine) used during the test). You may shower. Do not sign any important legal documents or operate any machinery for 24 hours (because of the anesthesia used during the test). NUTRITION Drink plenty of fluids. You may resume your normal diet as instructed by your doctor. Begin with a light meal and progress to your normal diet. Heavy or fried foods are harder to digest and may make you feel nauseated (sick to your stomach). Avoid alcoholic beverages for 24 hours or as instru (more content not included)... Normal [facility] Comment on above: Result Comment: Elec tronically Signed By: Marcy FORDE, Mariaelena\.maikol\Date and Time Signed: 10/13/23 09:33 EDT Inpatient Patient Summaryon 10-13-2023 Inpatient Patient Summary [address] [address] [facility] Clinical Discharge Instructions PERSON INFORMATION Name: SHEY BOSS PHYSICIANS Admitting Physician: Pa WEBB MD Attending Physician: Pa WEBB MD PCP: LATRELL JACK MD Discharge Diagnosis: Encounter for colorectal cancer screening; Encounter for screening for malignant neoplasm of rectum Comment: PATIENT EDUCATION INFORMATION Instructions: Medication Leaflets: Follow up: With: Address: When: Pa WEBB [address] [place] [address], [address], [address] [address] Business (1) , only if needed MEDICATION LIST Medications to Continue with No Changes Other Medications aspirin (aspirin 81 mg Oral EC Tab) 1 Tablets By Mouth every day. atorvastatin (atorvastatin 40 mg Tab) 1 Tablets By Mouth every day. cholecalciferol (Vitamin D3 1000 intl units (25 mcg) Tab) 1 Tablets By Mouth every day. famotidine (famotidine 40 mg Tab) 1 Tablets By Mouth once a day (at bedtime). fluticasone nasal (Flonase 0.05 mg/inh Vina) 2 Sprays Nasal Inhalation every day. losartan (losartan 25 mg Tab) 1 Tablets By Mouth every day. multivitamin with minerals (One A Day Women's Complete) By Mouth every day. pantoprazole (Pantoprazole [address] Tab) 1 Tablets By Mouth every day. tiotropium (Spiriva HandiHaler 18 mcg inhalation capsule) 1 Capsules Inhalation every day. zolpidem (zolpidem 12.5 mg oral ER Tab) 1 Tablets By Mouth once a day (at bedtime) as needed for sleep. Comment: Normal [facility] Main OR PACU I Recordon Main OR PACU I Record PACU Phase I Document Type FT Summary Primary Physician: Pa WEBB MD Finalized Date/Time: 10/13/23 09:54:27 Pt. Name: SHEY BOSS/Sex: 1950 Female Med Rec #: [id number] Physician: Pa WEBB MD Financial #: [id number] Pt. Type: O Room/Bed: / Admit/Disch: 10/13/23 07:49:21 - Institution: Case Times PACU I FT Pre-Care Text: Identifies barriers to communication and implements measures to provide psychological support Develops individualized plan of care, and ensures continuity of care Maintains patient's dignity and privacy, and maintains patient confidentiality Identifies and reports philosophical, cultural, and spiritual beliefs and values Identifies individual values and wishes concerning care Implements aseptic technique, and administers prescribed antibiotic therapy and immunizing agents as ordered Evaluates postoperative tissue perfusion Implements thermoregulation measures, and monitors body temperature Evaluates postoperative respiratory status Evaluates postoperative cardiac status Evaluates postoperative neurological status Assesses pain control, collaborated in initiating patient-controlled analgesia and implements alternative methods of pain control Verifies allergies, administers prescribed medications and solutions, evaluates response to medications Entry 1 In PACU I 10/13/23 09:17:00 Discharge from PACU 10/13/23 09:47:00 I Outcomes Met? Yes Last Modified By: Mariaelena Vidal RN 10/13/23 09:54:20 Post-Care Text: The patient demonstrates knowledge of the expected response to the operative or invasive procedure The patient's care is consistent with the individualized perioperative plan of care The patient's right to privacy is maintained The patient's value system, lifestyle, ethnicity, and culture are considered, respected, and incorporated into the perioperative plan of care The patient participates in decisions affecting his or her perioperative plan of care The patient is free from signs and symptoms of infection The patient has wound/tissue perfusion consistent with or improved from baseline levels established preoperatively The patient is at or returning to normothermia at the conclusion of the immediate postoperative period The patient's respiratory function is consistent with or improved from baseline levels established preoperatively The patient's cardiovascular status is consistent with or improved from baseline levels established preoperatively The patient's cardiovascular status is consistent with or improved from baseline levels established preoperatively The patient demonstrates and/or reports adequate pain control throughout the perioperative period The patient received appropriate medication(s), safely administered during the perioperative period Acuity Level PACU I FT Entry 1 Start Time 10/13/23 09:17:00 Stop Time 10/13/23 09:47:00 Acuity Level Acuity Level I Last Modified By: Mariaelena Vidal RN 10/13/23 09:54:26 Finalized By: Mariaelena Vidal RN Document Signatures Signed By: Mariaelena Vidal RN 10/13/23 09:54 Normal [facility] Main OR Preoperative Recordo n 10-13-2023 Main OR Preoperative Record Holding Area Document Type FT Summary Primary Physician: Pa WEBB MD Finalized Date/Time: 10/13/23 08:06:06 Pt. Name: SHEY BOSS /Sex: 1950 Female Med Rec #: [id number] Physician: Pa WEBB MD Financial #: [id number] Pt. Type: O Room/Bed: / Admit/Disch: 10/13/23 07:49:21 - Institution: Case Times Holding FT Pre-Care Text: Verifies consent for planned procedure, identifies individual values and wishes concerning care, includes family members in perioperative teaching Secures patient's records' belongings, and valuables, maintains patient's dignity and privacy, and maintains patient confidentiality Entry 1 In Holding 10/13/23 08:02:00 Outcomes Met? Yes Last Modified By: Olivia Domínguez 10/13/23 08:02:18 Post-Care Text: The patient participates in decisions affecting his or her perioperative plan of care The patient's right to privacy is maintained Surgery Checklist FT Entry 1 Patient Birthday, ID Band Procedure History and Physical, Identification: Check, Patient Verification: Surgical Consent, With Participation Patient NPO after Midnight: No Date/Time: 10/13/23 03:30:00 Personal Items: Glasses Complaints of Pain: No Operative Site n/a Availability Equipment Marking: Verified: Does Patient Smoke No Patient states Yes Comment - Adult [place] - Niece postop adult Supervision supervision available Case Cancelled in No Holding Area see comments below for reason Last Modified By: Olivia Domínguez 10/13/23 08:03:15 Finalized By: Olivia Domínguez Document Signatures Signed By: Olivia Domínguez 10/13/23 08:06 Normal [facility] Monitor Recordon 10-13-2023 Monitor Record [id number]#[id number] TIFF Normal [facility] Monitor Record [id number] TIFF Normal [facility] Outpatient Surgery Discharge Instructionon 10-13-2023 Outpatient Surgery Discharge Instruction [place] [id number] Patient Discharge Instructions PERSON INFORMATION Name: ALPA BOSSON Date of : 1950 Current Date: 10/13/2023 09:16:35 PHYSICIANS Admitting Physician: Pa WEBB MD Discharge Diagnosis: Encounter for colorectal cancer screening; Encounter for screening for malignant neoplasm of rectum SHEY BOSS has been given the following list of follow-up instructions, prescriptions, and patient education materials: PATIENT FOLLOW-UP INFORMATION Diet: Regular Discharge Activity: Resume normal activities in 24 hours, Arrange for a responsible adult supervision for 24 hours Discharge Restrictions: No driving for 24 hrs, Do not operate machinery or tools, Do not make important decisions for 24 hours, Do not drink alcoholic beverages for 24 hours Call Your Doctor For: Persistent or heavy bleeding, Temperature above 101.5 degrees, Redness, swelling, or pus at operative site, Severe pain at the operative site, Persistent vomiting IF UNABLE TO CONTACT YOUR PHYSICIAN AND YOU FEEL IT IS AN EMERGENCY, GO TO THE NEAREST EMERGENCY ROOM OR CALL 911 I, SHEY BOSS, have received the attached patient education materials/instructions and have verbalized understanding: May we do a follow up call? Yes No I was present when discharge instructions were given Patient Signature Date Clinican/Nurse Signature _ Date Follow up: With: Address: When: Pa WEBB [address] [place], [place] [address]sherif Mcnally, [address], [facility] [address] [place] [address] Business (1) , only if needed Pharmacy Information: You may receive a survey from [employer] asking you to rate your care experience. Your feedback is important and will help us understand what we do well and how we can improve the quality of care we provide to you, your loved ones and our community. It?s an honor to serve you. Thank you for choosing [facility] HERE ARE THE MEDICATION CHANGES THAT OCCURRED DURING YOUR HOSPITAL STAY Medications to Continue with No Changes Other Medications aspirin (aspirin 81 mg Oral EC Tab) 1 Tablets By Mouth every day. atorvastatin (atorvastatin 40 mg Tab) 1 Tablets By Mouth every day. cholecalciferol (Vitamin D3 1000 intl units (25 mcg) Tab) 1 Tablets By Mouth every day. famotidine (famotidine 40 mg Tab) 1 Tablets By Mouth once a day (at bedtime). fluticasone nasal (Flonase 0.05 mg/inh Vina) 2 Sprays Nasal Inhalation every day. losartan (losartan 25 mg Tab) 1 Tablets By Mouth every day. multivitamin with minerals (One A Day Women's Complete) By Mouth every day. pantoprazole (Pantoprazole [address] Tab) 1 Tablets By Mouth every day. tiotropium (Spiriva HandiHaler 18 mcg inhalation capsule) 1 Capsules Inhalation every day. zolpidem (zolpidem 12.5 mg oral ER Tab) 1 Tablets By Mouth once a day (at bedtime) as needed for sleep. PATIENT EDUCATION INFORMATION Instructions: Medication Leaflets: [facility] Patient Education - Texton 0 10-13-2023 Patient Education - Text Colonoscopy Care After Surgery Please read the instructions outlined below and refer to this sheet in the next few weeks. These discharge instructions provide you with general information on caring for yourself after you leave the hospital. Your doctor may also give you specific instructions. While your treatment has been planned according to the most current medical practices available, unavoidable complications occasionally occur. If you have any problems or questions after discharge, please call your doctor. ACTIVITY You may resume your regular activity, but move at a slower pace for the next 24 hours. Take frequent rest periods for the next 24 hours. Walking will help get rid of the air and reduce the bloated feeling in your abdomen (belly). No driving for 24 hours (because of the anesthesia (medicine) used during the test). You may shower. Do not sign any important legal documents or operate any machinery for 24 hours (because of the anesthesia used during the test). NUTRITION Drink plenty of fluids. You may resume your normal diet as instructed by your doctor. Begin with a light meal and progress to your normal diet. Heavy or fried foods are harder to digest and may make you feel nauseated (sick to your stomach). Avoid alcoholic beverages for 24 hours or as instructed. MEDICATIONS You may resume your normal medications unless your doctor tells you otherwise. WHAT YOU CAN EXPECT TODAY Some feelings of bloating in the abdomen. Passage of more gas than usual. Spotting of blood in your stool or on the toilet paper. FOLLOW-UP Your doctor will discuss the results of your test with you. SEEK IMMEDIATE MEDICAL ATTENTION IF: There is more than a spotting of blood in your stool. There is abdominal distention (your abdomen is swollen). There is vomiting. You have a temperature over 101.5 F. There is abdominal pain or discomfort that is severe or gets worse throughout the day. [facility] Progress Note-Physicianon Progress Note-Physician Patient: SHEY BOSS Age: 73 years Sex: Female : 1950 Associated Diagnoses: None Author: Shaji Bethea Jr., DO Postoperative Information Postoperative disposition: Postoperative disposition: Home. Optimetrix number: Optimetrix number [id number]. Anesthetic utilized: General. Physical Examination Vital Signs 10/13/2023 9:42 EDT Heart Rate Monitored 69 bpm Respiratory Rate Monitored 15 br/min Systolic Blood Pressure 146 mmHg HI Diastolic Blood Pressure 80 mmHg Mean Arterial Pressure, Cuff 102 mmHg SpO2 97 % 10/13/2023 9:32 EDT Heart Rate Monitored 67 bpm Respiratory Rate Monitored 20 br/min Systolic Blood Pressure 129 mmHg Diastolic Blood Pressure 76 mmHg Mean Arterial Pressure, Cuff 94 mmHg SpO2 95 % 10/13/2023 9:27 EDT Heart Rate Monitored 70 bpm Respiratory Rate Monitored 15 br/min Systolic Blood Pressure 134 mmHg Diastolic Blood Pressure 71 mmHg Mean Arterial Pressure, Cuff 92 mmHg SpO2 96 % 10/13/2023 9:22 EDT Heart Rate Monitored 73 bpm Respiratory Rate Monitored 23 br/min Systolic Blood Pressure 119 mmHg Diastolic Blood Pressure 68 mmHg Mean Arterial Pressure, Cuff 85 mmHg SpO2 95 % 10/13/2023 9:17 EDT Temperature Temporal Artery 36.2 DegC LOW Heart Rate Monitored 74 bpm Respiratory Rate Monitored 20 br/min Systolic Blood Pressure 96 mmHg Diastolic Blood Pressure 65 mmHg Mean Arterial Pressure, Cuff 75 mmHg SpO2 95 % Pain Assessment: Controlled. General: Awake, Alert, Appropriate. Respiratory: Adequate air exchange, Non-labored. Cardiovascular: Stable, Normal peripheral perfusion. Neurological: Neurologic exam at baseline. No changes.. Assessment Anesthetic outcome No anesthetic complications noted. No nausea/vomiting. Review / Management Condition: Stable. Plan Transfer/Discharge: Transfer/Discharge Discharge when meets criteria ( From PACU to Ambulatory Surgery Unit, and To home ). Normal [facility] Comment on above: Result Comment: Elec tronically Signed By: Shaji Bethea Jr., DO\.br\Date and Time Signed: 10/13/23 11:02 EDT Progress Note-Physician Patient: SHEY BOSS Age: 73 years Sex: Female : 1950 Associated Diagnoses: None Author: Shaji Bethea Jr., DO Preoperative Information Anesthesia history: Patient history: No prior anesthetic problems. Informed consent: Signed by patient. Re-evaluation prior to induction: Initial evaluation reviewed: No significant change. Review of Systems Respiratory: Negative except as documented in history of present illness. Cardiovascular: Negative except as documented in history of present illness. Health Status Allergies: Allergic Reactions (Selected) No Known Allergies, Allergies (1) Active Severity Reaction No Known Allergies None Documented Current medications: (Selected) Inpatient Medications Ordered Lactated Ringers IV Marlin 1000 mL 1,000 mL: 1,000 mL, IV, 100 mL/hr, Routine, Start date 10/13/23 8:04:00 EDT, 10 hour(s), Total volume (mL): 1,000, 103.5 kg, 2.16, m2 Sodium Chloride 0.9% IV Marlin 1000 mL 1,000 mL: 1,000 mL, IV, 20 mL/hr, Routine, Start date 10/13/23 6:59:00 EDT, 50 hour(s), Total volume (mL): 1,000, 103.5 kg, 2.16, m2 Documented Medications Documented Flonase 0.05 mg/inh Vina: 2 spray(s), Nasal, Daily, Refill(s) 0, Dry nasal passages One A Day Women's Complete: Oral, Daily, Refill(s) 0, Prophylaxis Pantoprazole [address] Tab: 40 mg = 1 tab(s), Oral, Daily, Refills(s) 0, Control of stomach acid Spiriva HandiHaler 18 mcg inhalation capsule: 18 mcg = 1 cap(s), Inhalation, Daily, Refills(s) 0, Shortness of breath or wheezing Vitamin D3 1000 intl units (25 mcg) Tab: 25 mcg = 1 tab(s), Oral, Daily, Refills(s) 0, Prophylaxis aspirin 81 mg Oral EC Tab: 81 mg = 1 tab(s), Oral, Daily, Refills(s) 0, Prophylaxis atorvastatin 40 mg Tab: 40 mg = 1 tab(s), Oral, Daily, Refills(s) 0, High cholesterol famotidine 40 mg Tab: 40 mg = 1 tab(s), Oral, Once a day (at bedtime), Refills(s) 0, Control of stomach acid losartan 25 mg Tab: 25 mg = 1 tab(s), Oral, Daily, Refills(s) 0, High blood pressure zolpidem 12.5 mg oral ER Tab: 12.5 mg = 1 tab(s), Oral, Once a day (at bedtime), PRN for sleep, Refills(s) 0, Home Medications (10) Active aspirin 81 mg Oral EC Tab 81 mg = 1 tab(s), Oral, Daily atorvastatin 40 mg Tab 40 mg = 1 tab(s), Oral, Daily famotidine 40 mg Tab 40 mg = 1 tab(s), Oral, Once a day (at bedtime) Flonase 0.05 mg/inh Vina 2 spray(s), Nasal, Daily losartan 25 mg Tab 25 mg = 1 tab(s), Oral, Daily One A Day Women's Complete , Oral, Daily Pantoprazole [address] Tab 40 mg = 1 tab(s), Oral, Daily Spiriva HandiHaler 18 mcg inhalation capsule 18 mcg = 1 cap(s), Inhalation, Daily Vitamin D3 1000 intl units (25 mcg) Tab 25 mcg = 1 tab(s), Oral, Daily zolpidem 12.5 mg oral ER Tab 12.5 mg = 1 tab(s), PRN, Oral, Once a day (at bedtime) , Medications (2) Active Scheduled: (0) Continuous: (2) Lactated Ringers 1,000 mL 1,000 mL, IV, 100 mL/hr Sodium Chloride 0.9% 1,000 mL 1,000 mL, IV, 20 mL/hr PRN: (0) Problem list: All Problems BMI 39.0-39.9,adult / SNOMED CT 337117391 / Confirmed Chronic obstructive pulmonary disease / SNOMED CT 31056326 / Confirmed Dyslipidemia / SNOMED CT 6371762259 / Confirmed GERD (gastroesophageal reflux disease) / SNOMED CT 534254898 / Confirmed Hiatal hernia / SNOMED CT 581597446 / Confirmed HTN (hypertension) / SNOMED CT 0153869996 / Confirmed Insomnia / SNOMED CT 333297412 / Confirmed Lower extremity edema / SNOMED CT 937909948 / Confirmed Morbid obesity / SNOMED CT 172141411 / Confirmed EDWIN (obstructive sleep apnea) / SNOMED CT 996231334 / Confirmed Screening for malignant neoplasm of colon / SNOMED CT 246112915 / Confirmed Seasonal allergic rhinitis / SNOMED CT 078396853 / Confirmed TIA (transient ischemic attack) / SNOMED CT 452433696 / Confirmed Resolved: At risk for falls / SNOMED CT 491816082 Problem added when Risk for Falls Careplan was initiated. Resolved due to patient discharge. Resolved: Hernia / SNOMED CT 362152750 Resolved: Potential for deficient knowledge of cerebrovascular accident (CVA) / IMO 65982647 problem added based on Stroke Powerplan ordered. Resolved due to patient discharge. Resolved: Sleep apnea / SNOMED CT 309548047 Histories Past Medical History: Resolved Hernia (470573848): Resolved. Sleep apnea (036792030): Resolved. Procedure history: ORIF - Open reduction of fracture of ankle with internal fixation (171826631909963). Meniscal repair (436021376). Tonsillectomy (539333028). Hand tendon repaired (309237013). Social History Social & Psychosocial Habits Alcohol 09/12/2023 Frequency: 1-2 times per year Substance Abuse Comment: denies - 03/03/2021 07:19 - Carolyn Stewart RN 09/12/2023 Risk Assessment: Denies Substance Abuse Tobacco 09/12/2023 Tobacco Use: Former smoker, quit more Smokeless tobacco use: Never Type: Cigarettes . Physical Examination Vital Signs 10/13/2023 8:03 EDT Temperature Temporal Artery 36.3 DegC (more content not included)... Normal [facility] Comment on above: Result Comment: Elec tronically Signed By: Lake Higuera DO, Shaji Alicia\.br\Date and Time Signed: 10/13/23 08:04 EDT Consent for Procedure/Surger yon 09-13-2023 Consent for Procedure/Surgery [id number] FF Normal [facility] Ambulatory Visit Summaryon 0 09-12-2023 Ambulatory Visit Summary SHEY BOSS :1950 Visit Date:09/12/2023 Ambulatory Visit Instructions Your Diagnosis BMI 39.0-39.9,adult Your Care Team Attending Physician - TRACEY OLIVO, Pa Vivas Primary Care Physician - GUERO OLIVO, LATRELL Referring Physician - LATRELL JACK MD This Is Your Medications List Contact prescribing physician if questions or concerns aspirin (aspirin 81 mg Oral EC Tab) atorvastatin (atorvastatin 40 mg Tab) cholecalciferol (Vitamin D3 1000 intl units (25 mcg) Tab) famotidine (famotidine 40 mg Tab) fluticasone nasal (Flonase 0.05 mg/inh Vina) losartan (losartan 25 mg Tab) multivitamin with minerals (One A Day Women's Complete) pantoprazole (Pantoprazole [address] Tab) tiotropium (Spiriva HandiHaler 18 mcg inhalation capsule) zolpidem (zolpidem 12.5 mg oral ER Tab) Procedures Performed Hand tendon repaired, Meniscal repair, ORIF - Open reduction of fracture of ankle with internal fixation, Tonsillectomy. Discharge Vitals Heart Rate (Peripheral) 92 Respiratory Rate 20 Blood Pressure 160/88 Height 162.5 cm Height 64 in Weight 103.5 kg Weight 227.7 lb BMI 39.2 Medications What How Much When Instructions Unchanged aspirin (aspirin 81 mg Oral EC Tab) 1 Tablets By Mouth Every day Contact prescribing physician if questions or concerns Unchanged atorvastatin (atorvastatin 40 mg Tab) 1 Tablets By Mouth Every day Contact prescribing physician if questions or concerns Unchanged cholecalciferol (Vitamin D3 1000 intl units (25 mcg) Tab) 1 Tablets By Mouth Every day Contact prescribing physician if questions or concerns Unchanged famotidine (famotidine 40 mg Tab) 1 Tablets By Mouth Once a day (at bedtime) Contact prescribing physician if questions or concerns Unchanged fluticasone nasal (Flonase 0.05 mg/ inh Vina) 2 Sprays Nasal Inhalation Every day Contact prescribing physician if questions or concerns Unchanged losartan (losartan 25 mg Tab) 1 Tablets By Mouth Every day Contact prescribing physician if questions or concerns Unchanged multivitamin with minerals (One A Day Women's Complete) By Mouth Every day Contact prescribing physician if questions or concerns Unchanged pantoprazole (Pantoprazole [address] Tab) 1 Tablets By Mouth Every day Contact prescribing physician if questions or concerns Unchanged tiotropium (Spiriva HandiHaler 18 mcg inhalation capsule) 1 Capsules Inhalation Every day Contact prescribing physician if questions or concerns Unchanged zolpidem (zolpidem 12.5 mg oral ER Tab) 1 Tablets By Mouth Once a day (at bedtime) as needed for for sleep Contact prescribing physician if questions or concerns Allergies No Known Allergies Problems Ongoing - Any problem that you are currently receiving treatment for. BMI 39.0-39.9,adult Chronic obstructive pulmonary disease Dyslipidemia GERD (gastroesophageal reflux disease) Hiatal hernia HTN (hypertension) Insomnia Lower extremity edema Morbid obesity EDWIN (obstructive sleep apnea) Seasonal allergic rhinitis TIA (transient ischemic attack) Historical - Any problem that you are no longer receiving treatment for. Hernia Sleep apnea Patient Survey You may receive a survey via text or e-mail asking about your office visit. Please share your experience with us by completing your survey. We appreciate your feedback and thank you for choosing us for your care. Normal [facility] Provider Letteron 08-25-2023 Provider Letter (Inserted Image. Celia ble to display) August 25, 2023 SHEY BOSS [address] [place] [id number] : 1950 Dear Ms. Boss, We have been trying to reach you with no success regarding a referral from Dr Jack. It is important that you return our call upon receiving this letter so that we can set up an appointment for you in either our [place] or [place] office. Also, at the time of your call, please provide us with your current demographic and insurance information. Thank you for your prompt attention to this matter. Sincerely, [facility] General Surgery [phone] Normal [facility] Physician Referralon 024 Physician Referral [id number] IFF Normal [facility] CT LUNG CANCER SCREENINGon 0 07-28-2022 CT LUNG CANCER SCREENING EXAMINATION: CT LUNG CANCER SCREENING HISTORY: Nicotine dependence COMPARISON: CT lung cancer screening 11/05/2020 TECHNIQUE: Axial, Coronal, and Sagittal images were created without the administration of IV contrast material. Dose reduction techniques were achieved by using automated exposure control and/or adjustment of mA and/or kV according to patient size and/or use of iterative reconstruction technique. FINDINGS: LUNGS: Small amount atelectasis within posterior right lung base secondary to large hiatal hernia. Mild scarring versus atelectasis within left upper lobe along the anterior lateral chest wall, not significantly changed. No suspicious nodules or acute infiltrates. PLEURA: No mass, effusion, or pneumothorax. VASCULATURE: No abnormality. JURGEN: No mass or pathologic adenopathy. MEDIASTINUM: Large hiatal hernia with nearly the entire stomach above the diaphragm, not significant changed. No lymphadenopathy or mass. CARDIAC: No enlargement, pericardial thickening, or significant calcification. AORTA: No aneurysm or dissection. CHEST WALL: No mass or axillary adenopathy BONES: No bone lesion or fracture. LIMITED ABDOMEN: No suspicious findings. Limited images of the upper abdomen. OTHER: Negative. IMPRESSION: 1. Lung-RADS Category 1 Negative. No nodules and definitely benign nodules. Continue annual screening with LDCT in 12 months. 2. Grossly stable large hiatal hernia. Electronically authenticated by: MEHNAZ SANTIAGO Date: 2022-07-28 15:28 Normal [facility] BNPon 02-22-2022 Natriuretic peptide B (Bld) [Mass/Vol] 108.0 pg/mL Normal <=900.0 [facility] Comment on above: Performed By: #### B MP, BNP, HSTROPN ####[facility] [address] [place], [place] [address]DrMichelle Trujillo CBC AUTO DIFFon 02-22-2022 BASO # 0.0 103/ul Normal 0.0-0.1 [facility] Comment on above: Performed By: #### C BC ####[facility] Mg[address] [place], [place] [address]DrMichelle Trujillo Basophils/100 WBC (Bld) 0.7 % Normal 0.2-2.0 [facility] Comment on above: Performed By: #### C BC ####[facility] [address] [place], [place] [address]DrMichelle Trujillo EO # 0.1 103/ul Normal 0.0-0.7 [facility] Comment on above: Performed By: #### C BC ####[facility] [address] [place], [place] [address]DrMichelle Trujillo Eosinophils/100 WBC (Bld) 1.4 % Normal 0.9-7.0 [facility] Comment on above: Performed By: #### C BC ####[facility] [address] [place], [place] [address]DrMichelle Trujillo Erythrocyte distribution width (RBC) [Ratio] 13.2 % Normal 11.0-15.0 [facility] Comment on above: Performed By: #### C BC ####[facility] [address] [place] [address]Dr. Felisa Trujillo Hematocrit (Bld) [Volume fraction] 36.6 % Normal 36.0-48.0 [facility] Comment on above: Performed By: #### C BC ####[facility] [address] [place], [place] [address]Dr. Felisa Trujillo Hemoglobin (Bld) [Mass/Vol] 12.7 g/dL Normal 12.0-16.0 [facility] Comment on above: Performed By: #### C BC ####[facility] [address] [place], [place] [address]Dr. Krystakun Trujillo IG # 0.01 10e3/ul Normal 0.00-0.03 [facility] Comment on above: Performed By: #### C BC ####[facility] [address] [place], [place] [address]Dr. Felisa Trujillo IG % 0.2 % Normal 0.0-0.5 [facility] Comment on above: Performed By: #### C BC ####[facility] [address] [place], [place] [address]Dr. Felisa Trujillo LYMPH # 1.0 103/ul Critically low 1.2-3.8 [facility] Comment on above: Performed By: #### C BC ####[facility] [address] [place], [place] [address]Dr. Felisa Trujillo Lymphocytes/100 WBC (Bld) 22.3 % Normal 20.5-60.0 [facility] Comment on above: Performed By: #### C BC ####[facility] [address] [place], [place] [address]Dr. Felisa Ronnie MANUAL DIFF REQ NO Normal [facility] Comment on above: Performed By: #### C BC ####[facility] [address] [place], [place] [address]Dr. Krystakun Trujillo MCH (RBC) [Entitic mass] 31.8 pg Normal 26.7-34.0 [facility] Comment on above: Performed By: #### C BC ####[facility] [address] [place] [address]DrMichelle Trujillo MCHC (RBC) [Mass/Vol] 34.7 g/dL Normal 29.9-35.2 [facility] Comment on above: Performed By: #### C BC ####[facility] [address] [place], [place] [address]DrMichelle Trujillo MCV (RBC) [Entitic vol] 91.7 fL Normal 81.0-99.0 [facility] Comment on above: Performed By: #### C BC ####[facility] [address] [place], [place] [address]DrMichelle Trujillo MONO # 0.5 103/ul Normal 0.3-0.8 [facility] Comment on above: Performed By: #### C BC ####[facility] [address] [place], [place] [address]DrMichelle Trujillo Monocytes/100 WBC (Bld) 11.7 % Normal 1.7-12.0 [facility] Comment on above: Performed By: #### C BC ####[facility] [address] [place], [place] [address]DrMichelle Trujillo NEUT # 2.7 103/ul Normal 1.4-6.5 [facility] Comment on above: Performed By: #### C BC ####[facility] [address] [place], [place] [address]DrMichelle Trujillo Neutrophils/100 WBC (Bld) 63.7 % Normal 43.0-75.0 [facility] Comment on above: Performed By: #### C BC ####[facility] [address] [place], [place] [address]DrMichelle Trujillo Platelet mean volume (Bld) [Entitic vol] 10.2 fL Normal 9.5-13.5 [facility] Comment on above: Performed By: #### C BC ####[facility] [address] [place], [place] [address]DrMichelle Trujillo PLT 149 103/ul Critically low 150-450 [facility] Comment on above: Performed By: #### C BC ####[facility] [address] [place] [id number]. Felisa Trujillo RBC 3.99 106/ul Critically low 4.20-5.40 [facility] Comment on above: Performed By: #### C BC ####[facility] [address] [place] [id number]. Felisa Trujillo WBC 4.3 103/ul Normal 4.0-11.0 [facility] Comment on above: Performed By: #### C BC ####[facility] [address] [place] [address]Dr. Felisa Trujillo Covid-19 PCR ([facility])on 02-07 SARS-CoV-2 (COVID-19) RNA DUGLAS+probe Ql (Unsp spec) Detected Critically abnormal NOT DETECTED [facility] Comment on above: Result Comment: This test is not yet approved or cleared by the [place] FDA. When there are no FDA-approved or cleared tests available, and other criteria are met, FDA can make tests available under an emergency access mechanism called an Emergency Use Authorization (EUA). The EUA for this test is supported by the [place] of Health and Human Service's declaration that circumstances exist to justify the emergency use of in vitro diagnostics for the detection and/or diagnosis of the virus that causes COVID-19. This EUA will remain in effect for the duration of the COVID-19 declaration justifying emergency of IVDs, unless it is terminated or revoked by the FDA (after which the test may no longer be used). Performed By: #### C VDTBH ####[facility] [address] [place] [id number]. Felisa Trujillo PROF CHEM 8 (BAS METB)on Anion gap [Moles/Vol] 14.9 mmol/L Normal [facility] Comment on above: Performed By: #### B MP, BNP, HSTROPN ####[facility] [address] [place] [address]Dr. Felisa Trujillo Calcium [Mass/Vol] 8.9 mg/dL Normal 8.5-10.1 [facility] Comment on above: Performed By: #### B MP, BNP, HSTROPN ####[facility] [address] [place] [address]Dr. Felisa Trujillo Chloride [Moles/Vol] 104 mmol/L Normal 98-107 [facility] Comment on above: Performed By: #### B MP, BNP, HSTROPN ####[facility] [address] [place], [place] [address]Dr. Felisa Trujillo CO2 [Moles/Vol] 24.0 mmol/L Normal 21.0-32.0 [facility] Comment on above: Performed By: #### B MP, BNP, HSTROPN ####[facility] [address] [place], [place] [address]Dr. Felisa Trujillo Creatinine [Mass/Vol] 0.98 mg/dL Normal 0.55-1.02 [facility] Comment on above: Performed By: #### B MP, BNP, HSTROPN ####[facility] [address] [place], [place] [address]Dr. Felisa Trujillo EGFR-AF CITIZEN [place] >60 Normal >=60 [facility] Comment on above: Performed By: #### B MP, BNP, HSTROPN ####[facility] [address] [place], [place] [address]Dr. Krystakun Trujillo EGFR-NON AF CITIZEN OF [place] 56 mL/min/1.73m2 Critically low >=60 [facility] Comment on above: Performed By: #### B MP, BNP, HSTROPN ####[facility] [address] [place], [place] [address]Dr. Felisa Trujillo Glucose [Mass/Vol] 136 mg/dL Critically high 74-106 T [facility] Comment on above: Performed By: #### B MP, BNP, HSTROPN ####[facility] [address] [place] [address]Dr. Felisa Trujillo Potassium [Moles/Vol] 3.9 mmol/L Normal 3.5-5.1 [facility] Comment on above: Performed By: #### B MP, BNP, HSTROPN ####[facility] [address] [place] [address]Dr. Felisa Trujillo Sodium [Moles/Vol] 139 mmol/L Normal 136-145 [facility] Comment on above: Performed By: #### B MP, BNP, HSTROPN ####[facility] [address] [place] [address]Dr. Felisa Trujillo Urea nitrogen [Mass/Vol] 14.0 mg/dL Normal 7.0-18.0 [facility] Comment on above: Performed By: #### B MP, BNP, HSTROPN ####[facility] [address] [place] [address]Dr. Felisa Trujillo Urea nitrogen/Creatinine [Mass ratio] 14.3 mg/mg Normal [facility] Comment on above: Performed By: #### B MP, BNP, HSTROPN ####[facility] [address] [place] [address]Dr. Felisa Trujillo TROPONIN, HIGH SENSITIVITYon 02-22-2022 HSTROP 5.9 pg/mL Normal 4.0-51.3 [facility] Comment on above: Result Comment: CUT- OFF POINTS HAVE BEEN ESTABLISHED BASED ON THE FOURTH UNIVERSAL DEFINITIONS OF MYOCARDIAL INFARCTION. THE UPPER REFERENCE LIMIT (URL) OF TROPONIN, DEFINED THE 99TH PERCENTILE OF cTnI DISTRIBUTION IN A REFERENCE POPULATION, HAS BEEN CONFIRMED THE DECISION THRESHOLD FOR NM DIAGNOSIS. Performed By: #### B MP, BNP, HSTROPN ####[facility] [address] [place] [address]Dr. Felisa Trujillo XR CHEST 1 Von 02-22-2022 XR CHEST 1 V EXAMINATION: XR CHES T 1 V HISTORY: COUGH , acute chest tightness COMPARISON: XR chest 11/02/2021 FINDINGS: LUNGS: Underexpanded lungs without appreciable infiltrates. VASCULATURE: No increased pulmonary vasculature. PLEURA: No pneumothorax, effusion, or pleural thickening. CARDIAC: No cardiomegaly or cardiac silhouette abnormality. MEDIASTINUM: No visible mass or adenopathy. BONES: No fracture or visible bone lesion. OTHER: Large hiatal hernia, grossly stable. IMPRESSION: 1. No acute cardiopulmonary process. Stable chest. Electronically authenticated by: MEHNAZ SANTIAGO Date: 2022-02-22 13:30 Normal [facility] MAMM SCREEN 3D RONALD CADon 11-11-2021 MG MAMM SCREEN 3D RONALD CAD Patient: SHEY BOSS Exam Date: 11/11/2021 : 1950 Gender:F Ordering : DR LATRELL JACK . Admission #: [id number] Family : Order #: [id number] CLICK HERE TO VIEW EXAM RADIOLOGY REPORT PROCEDURE: MAMMOGRAM SCREENING 3D BILATERAL CAD COMPARISON: MG MAMM SCREEN 3D RONALD CAD, 11/05/2020. INDICATIONS: Screening mammography Calculator Name NCI Breast Cancer Risk Assessment Tool 5 Year Breast Cancer Risk 1.90% Lifetime Breast Cancer Risk 5.60% Personal Breast Cancer No Personal Ovarian Cancer No Treatments None Family Cancers Father with lung cancer at age 45. LOCATION: [facility] BREAST COMPOSITION: Almost entirely fatty. FINDINGS: DIAGNOSTIC CATEGORY 1--NEGATIVE. NO CHANGE FROM COMPARISON ASSESSMENT. Scattered benign-appearing calcifications are present. Scattered benign-appearing lymph nodes are present. RIGHT BREAST: No significant suspicious finding. LEFT BREAST: No significant suspicious finding. RECOMMENDATIONS: ROUTINE MAMMOGRAM AND CLINICAL EVALUATION IN 12 MONTHS. PLEASE NOTE: A NORMAL MAMMOGRAM DOES NOT EXCLUDE THE POSSIBILITY OF BREAST CANCER. A CLINICALLY SUSPICIOUS PALPABLE LUMP SHOULD BE BIOPSIED. Dictated by: Willard Anand MD on 11/11/2021 at 13:02 Approved by: Willard Anand MD on 11/11/2021 at 13:04 Normal [facility] BNPon 11-02-2021 Natriuretic peptide B (Bld) [Mass/Vol] 42.0 pg/mL Normal <=900.0 [facility] Comment on above: Performed By: #### H STROPN, CMP, BNP #### [facility] [address] [address] [address] Felisa Trujillo CBC AUTO DIFFon 11-02-2021 BASO # 0.1 103/ul Normal 0.0-0.1 [facility] Comment on above: Performed By: #### C BC #### [facility] [id number] Felisa Trujillo Basophils/100 WBC (Bld) 0.8 % Normal 0.2-2.0 [facility] Comment on above: Performed By: #### C BC #### [facility] [address] [place] [address] Dr. Felisa Trujillo EO # 0.3 103/ul Normal 0.0-0.7 [facility] Comment on above: Performed By: #### C BC #### [facility] [address] [place] [address] Dr. Felisa Trujillo Eosinophils/100 WBC (Bld) 3.9 % Normal 0.9-7.0 [facility] Comment on above: Performed By: #### C BC #### [facility] [address] [place] [address] Dr. Felisa Trujillo Erythrocyte distribution width (RBC) [Ratio] 12.7 % Normal 11.0-15.0 [facility] Comment on above: Performed By: #### C BC #### [facility] [address] [place] [address] Dr. Felisa Trujillo Hematocrit (Bld) [Volume fraction] 40.2 % Normal 36.0-48.0 [facility] Comment on above: Performed By: #### C BC #### [facility] [address] [place] [address] Dr. Felisa Trujillo Hemoglobin (Bld) [Mass/Vol] 13.6 g/dL Normal 12.0-16.0 [facility] Comment on above: Performed By: #### C BC #### [facility] [address] [place] [address] Dr. Felisa Trujillo IG # 0.02 10e3/ul Normal 0.00-0.03 [facility] Comment on above: Performed By: #### C BC #### [facility] [address] [place] [address] Dr. Felisa Trujillo IG % 0.3 % Normal 0.0-0.5 [facility] Comment on above: Performed By: #### C BC #### [facility] [address] [place] [address] Dr. Felisa Trujillo LYMPH # 1.9 103/ul Normal 1.2-3.8 [facility] Comment on above: Performed By: #### C BC #### [facility] [address] [place] [address] Dr. Felisa Trujillo Lymphocytes/100 WBC (Bld) 30.0 % Normal 20.5-60.0 [facility] Comment on above: Performed By: #### C BC #### [facility] [address] [place] [address] Dr. Felisa Trujillo MANUAL DIFF REQ NO Normal [facility] Comment on above: Performed By: #### C BC #### [facility] [address] [place] [address] Dr. Felisa Trujillo MCH (RBC) [Entitic mass] 31.5 pg Normal 26.7-34.0 [facility] Comment on above: Performed By: #### C BC #### [facility] [address] [place] [address] Dr. Felisa Trujillo MCHC (RBC) [Mass/Vol] 33.8 g/dL Normal 29.9-35.2 [facility] Comment on above: Performed By: #### C BC #### [facility] [address] [place] [address] Dr. Felisa Trujillo MCV (RBC) [Entitic vol] 93.1 fL Normal 81.0-99.0 [facility] Comment on above: Performed By: #### C BC #### [facility] [address] [place] [address] Dr. Felisa Trujillo MONO # 0.6 103/ul Normal 0.3-0.8 [facility] Comment on above: Performed By: #### C BC #### [facility] [address] [place] [address] Dr. Felisa Trujillo Monocytes/100 WBC (Bld) 8.5 % Normal 1.7-12.0 [facility] Comment on above: Performed By: #### C BC #### [facility] [address] [place] [address] Dr. Felisa Trujillo NEUT # 3.7 103/ul Normal 1.4-6.5 [facility] Comment on above: Performed By: #### C BC #### [facility] [address] [address] [address] Felisa Trujillo Neutrophils/100 WBC (Bld) 56.5 % Normal 43.0-75.0 [facility] Comment on above: Performed By: #### C BC #### [facility] [address] [place] [address] Dr. Felisa Trujillo Platelet mean volume (Bld) [Entitic vol] 9.9 fL Normal 9.5-13.5 [facility] Comment on above: Performed By: #### C BC #### [facility] [address] [place] [address] Dr. Felisa Trujillo PLT 193 103/ul Normal 150-450 [facility] Comment on above: Performed By: #### C BC #### [facility] [address] [place] [address] Dr. Felisa Trujillo RBC 4.32 106/ul Normal 4.20-5.40 [facility] Comment on above: Performed By: #### C BC #### [facility] [address] [place] [address] Dr. Felisa Trujillo WBC 6.5 103/ul Normal 4.0-11.0 [facility] Comment on above: Performed By: #### C BC #### [facility] [address] [place] [address] Dr. Felisa Trujillo Covid-19 PCR ([facility])on 10-09 SARS-CoV-2 (COVID-19) RNA DUGLAS+probe Ql (Unsp spec) Not detected Normal NOT DETECTED [facility] Comment on above: Result Comment: When diagnostic testing is negative, the possibility of a false negative should be considered in the context of a patient's recent exposures and the presence of clinical signs and symptoms consistent with SARS-CoV-2. This test is not yet approved or cleared by the [place] FDA. When there are no FDA-approved or cleared tests available, and other criteria are met, FDA can make tests available under an emergency access mechanism called an Emergency Use Authorization (EUA). The EUA for this test is supported by the [place] of Health and Human Service's declaration that circumstances exist to justify the emergency use of in vitro diagnostics for the detection and/or diagnosis of the virus that causes COVID-19. This EUA will remain in effect for the duration of the COVID-19 declaration justifying emergency of IVDs, unless it is terminated or revoked by the FDA (after which the test may no longer be used). Performed By: #### C VDTBH #### [facility] [address] [address] [address] Felisa Trujillo LACTATE/LACTIC ACIDon 2021 Lactate [Moles/Vol] 1.0 mmol/L Normal 0.4-2.0 [facility] Comment on above: Performed By: #### L ACT ####[facility] [address] [place] [address]Dr. Felisa Trujillo PH VENOUS BLOODon 11-02-2021 PCO2 VENOUS 40.3 mmHg Normal 40.0-52.0 [facility] Comment on above: Performed By: #### P HVEN ####[facility] [address] [place] [address]Dr. Felisa Trujillo pH VENOUS 7.431 Critically high 7.330-7.430 [facility] Comment on above: Performed By: #### P HVEN ####[facility] [address] [place] [address]Dr. Felisa Trujillo PROF 14(COMP METB)on 022 Albumin [Mass/Vol] 4.1 g/dL Normal 3.4-5.0 [facility] Comment on above: Performed By: #### H STROPN, CMP, BNP ####[facility] [address] [place] [address]Dr. Felisa Trujillo Albumin/Globulin [Mass ratio] 1.1 {ratio} Normal [facility] Comment on above: Performed By: #### H STROPN, CMP, BNP ####[facility] [address] [place] [address]DrMichelle Trujillo ALP [Catalytic activity/Vol] 120 U/L Critically high 46-116 [facility] Comment on above: Performed By: #### H STROPN, CMP, BNP ####[facility] [address] [place] [address]Dr. Felisa Trujillo ALT [Catalytic activity/Vol] 29 U/L Normal 14-59 [facility] Comment on above: Performed By: #### H STROPN, CMP, BNP ####[facility] [address] [place] [address]Dr. Felisa Trujillo Anion gap [Moles/Vol] 14.2 mmol/L Normal [facility] Comment on above: Performed By: #### H STROPN, CMP, BNP ####[facility] [address] [place] [address]Dr. Felisa Trujillo AST [Catalytic activity/Vol] 24 U/L Normal 15-37 [facility] Comment on above: Performed By: #### H STROPN, CMP, BNP ####[facility] [address] [place], [place] [address]Dr. Felisa Trujillo Bilirubin [Mass/Vol] 0.6 mg/dL Normal 0.2-1.0 [facility] Comment on above: Performed By: #### H STROPN, CMP, BNP ####[facility] [address] [place], [place] [address]Dr. Felisa Trujillo Calcium [Mass/Vol] 8.8 mg/dL Normal 8.5-10.1 [facility] Comment on above: Performed By: #### H STROPN, CMP, BNP ####[facility] [address] [place], [place] [address]Dr. Felisa Trujillo Chloride [Moles/Vol] 103 mmol/L Normal 98-107 [facility] Comment on above: Performed By: #### H STROPN, CMP, BNP ####[facility] [address] [place], [place] [address]Dr. Felisa Trujillo CO2 [Moles/Vol] 25.3 mmol/L Normal 21.0-32.0 [facility] Comment on above: Performed By: #### H STROPN, CMP, BNP ####[facility] [address] [place], [place] [address]Dr. Felisa Trujillo Creatinine [Mass/Vol] 0.86 mg/dL Normal 0.55-1.02 [facility] Comment on above: Performed By: #### H STROPN, CMP, BNP ####[facility] [address] [place] [address]Dr. Felisa Trujillo EGFR-AF CITIZEN [place] >60 Normal >=60 [facility] Comment on above: Performed By: #### H STROPN, CMP, BNP ####[facility] [address] [place] [address]Dr. Felisa Trujillo EGFR-NON AF CITIZEN OF [place] >60 Normal >=60 [facility] Comment on above: Performed By: #### H STROPN, CMP, BNP ####[facility] [address] [place] [address]Dr. Felisa Trujillo Globulin (S) [Mass/Vol] 3.6 g/dL Normal [facility] Comment on above: Performed By: #### H STROPN, CMP, BNP ####[facility] [address] [place] [address]Dr. Felisa Trujillo Glucose [Mass/Vol] 90 mg/dL Normal 74-106 [facility] Comment on above: Performed By: #### H STROPN, CMP, BNP ####[facility] [address] [place] [address]Dr. Felisa Trujillo Potassium [Moles/Vol] 3.5 mmol/L Normal 3.5-5.1 [facility] Comment on above: Performed By: #### H STROPN, CMP, BNP ####[facility] [address] [place] [address]Dr. Felisa Trujillo Protein [Mass/Vol] 7.7 g/dL Normal 6.1-8.2 [facility] Comment on above: Performed By: #### H STROPN, CMP, BNP ####[facility] [address] [place] [address]Dr. Felisa Trujillo Sodium [Moles/Vol] 139 mmol/L Normal 136-145 [facility] Comment on above: Performed By: #### H STROPN, CMP, BNP ####[facility] [address] [place], [place] [address]ZcDr. Felisa Trujillo Urea nitrogen [Mass/Vol] 13.0 mg/dL Normal 7.0-18.0 [facility] Comment on above: Performed By: #### H STROPN, CMP, BNP ####[facility] [address] [place], [place] [address]QrDr. Felisa Trujillo Urea nitrogen/Creatinine [Mass ratio] 15.1 mg/mg Normal [facility] Comment on above: Performed By: #### H STROPN, CMP, BNP ####[facility] [address] [place], [place] [address]Dr. Felisa Trujillo PROTIMEon 11-02-2021 INR Coag (PPP) [Relative time] 0.99 {INR} Normal [facility] Comment on above: Performed By: #### P TT, PT #### [facility] [address] [address] [address] Felisa Trujillo INR GUIDELINES SEE BELOW Normal [facility] Comment on above: Result Comment: KAY RED INR: 2.0 - 3.0 CONDITIONS NOT LISTED BELOW 2.5 - 3.5 FOR PROSTHETIC HEART VALVE REPLACEMENT 2.5 - 3.5 RECURRENT THROMBOSIS Performed By: #### P TT, PT #### [facility] [address] [address] [address] Felisa Trujillo PT Coag (PPP) [Time] 10.7 s Normal 9.0-11.6 [facility] Comment on above: Performed By: #### P TT, PT #### [facility] [address] [address] [address] Felisa Trujillo PTTon 11-02-2021 aPTT Coag (Bld) [Time] 25.9 s Normal 22.3-36.2 [facility] Comment on above: Performed By: #### P TT, PT #### [facility] [address] [address] [address] Felisa Trujillo TROPONIN, HIGH SENSITIVITYon 11-02-2021 HSTROP 8.7 pg/mL Normal 4.0-51.3 [facility] Comment on above: Result Comment: CUT- OFF POINTS HAVE BEEN ESTABLISHED BASED ON THE FOURTH UNIVERSAL DEFINITIONS OF MYOCARDIAL INFARCTION. THE UPPER REFERENCE LIMIT (URL) OF TROPONIN, DEFINED THE 99TH PERCENTILE OF cTnI DISTRIBUTION IN A REFERENCE POPULATION, HAS BEEN CONFIRMED THE DECISION THRESHOLD FOR NM DIAGNOSIS. Performed By: #### H STROPN, CMP, BNP #### [facility] [address] [place], [place] [address] Dr. Felisa Trujillo Covid-19 PCR ([facility])on SARS-CoV-2 (COVID-19) RNA DUGLAS+probe Ql (Unsp spec) Not detected Normal NOT DETECTED [facility] Comment on above: Result Comment: This test is not yet approved or cleared by the [place] FDA. When there are no FDA-approved or cleared tests available, and other criteria are met, FDA can make tests available under an emergency access mechanism called an Emergency Use Authorization (EUA). The EUA for this test is supported by the Triage Rn of Health and Human Service's (HHS's) declaration that circumstances exist to justify the emergency use of in vitro diagnostics for the detection and/or diagnosis of the virus that causes COVID-19. This EUA will remain in effect (meaning this test can be used) for the duration of the COVID-19 declaration justifying emergency of IVDs, unless it is terminated or revoked by FDA (after which the test may no longer be used). When diagnostic testing is negative, the possibility of a false negative should be considered in the context of a patient's recent exposures and the presence of clinical signs and symptoms consistent with SARS-CoV-2. Performed By: #### C VDTBH #### [facility] [address] [place] [address] [address] [address] Felisa Trujillo XR CHEST 2 Von 09-02-2021 XR CHEST 2 V EXAMINATION: XR CHES T 2 V HISTORY: Chronic obstructive lung disease COMPARISON: XR chest 03/01/2020, CT lung cancer screening 11/05/2020 FINDINGS: LUNGS: No significant pulmonary parenchymal abnormalities. VASCULATURE: No increased pulmonary vasculature. PLEURA: No pneumothorax, effusion, or pleural thickening. CARDIAC: No cardiomegaly or cardiac silhouette abnormality. MEDIASTINUM: Large hiatal hernia within posterior mediastinum. BONES: No fracture or visible bone lesion. OTHER: Negative. IMPRESSION: 1. No acute cardiopulmonary process. 2. Large hiatal hernia, also seen on prior CT study. Electronically authenticated by: MEHNAZ SANTIAGO Date: 2021-09-02 14:39 Normal [facility] - AP Resultson 9 Lab - AP Results [id number]#1.00OT [facility] Pathology Sendout Teston Pathology Send Out. See Report [facility] Comment on above: Order Comment: left ring finger , cyst tendon sheath Performed By: #### 2 [id number] ####[facility] (DEFAULT)[address] [place] [address] Coding Summaryon 02-08-2019 Coding Summary CODING DATE: 019 [facility] STATUS: Home PAYOR: Medicare [facility] APC DESCRIPTION 5112 Level 2 Musculoskeletal Procedures ADMIT DX: REASON FOR VISIT DX: M65.342 Trigger finger, left ring finger FINAL DX: PRINCIPAL: M65.342 Trigger finger, left ring finger SECONDARY: M67.442 Ganglion, left hand J44.9 Chronic obstructive pulmonary disease, unspecified PYMT PROC APC STAT DESCRIPTION DOCTOR NAME DATE 29126 5112 J1 Excision of lesion of Daquan Antunez And 02/04/2019 tendon sheath or joint capsule (eg, cyst, mucous cyst, or ganglion), hand or finger F3 Left hand, fourth digit NOTE: The code number assigned matches the documented diagnosis and / or procedure in the patient's chart. However, the narrative phrase printed from the coding software may appear abbreviated, or result in slightly different terminology. Coded By: Cassy Bradley Date Saved: 02/08/2019 11:52 am [facility] Consent Formson 02-05-2019 Consent Forms [id number]#1.00OT [facility] Discharge Instructionson Discharge Instructions [id number]#1.00OT [facility] History and Physicalon 02-05 History and Physical [id number]#1.00OT GTIFF [facility] MAGR Intraoperative Recordon 02-05-2019 MAGR Intraoperative Record MAGR Intra-Op Record Summary Primary Physician: Daquan Antunez DO Finalized Date/Time: 02/05/19 07:41:01 Pt. Name: SHEY BOSS /Sex: 1950 FEMALE Med Rec #: [id number] Physician: Daquan Antunez DO Financial #: [id number] Pt. Type: D Room/Bed: / Admit/Disch: 02/04/19 11:44:00 - 02/04/19 17:05:00 Institution: Case Times MAGR Entry 1 Patient In Room Time 02/04/19 15:31:00 Out Room Time 02/04/19 16:08:00 Anesthesia Start Time 02/04/19 15:31:00 Stop Time 02/04/19 16:11:00 Surgery Start Time 02/04/19 15:50:00 Stop Time 02/04/19 16:05:00 Last Modified By: Toshia Plascencia RN 02/04/19 16:16:04 Case Attendance MAGR Entry 1 Entry 2 Entry 3 Case Attendee Daquan Antunez Bradley MD Long, Barbara RN Andrew DO Role Performed Surgeon - Primary Anesthesiologist of [employer] Record Time In 02/04/19 15:31:00 02/04/19 15:31:00 02/04/19 15:31:00 Time Out 02/04/19 16:08:00 02/04/19 16:08:00 02/04/19 16:08:00 Procedure Trigger Finger Release Trigger Finger Release Trigger Finger Release Last Modified By: Toshia Plascencia RN, Barbara RN Long, Barbara RN 02/04/19 16:16:05 02/04/19 16:16:05 02/04/19 16:16:05 Entry 4 Entry 5 Case Attendee Paloma Esparza Regina CST Role Performed Scrub Personnel Strap Machine Operator Automatic Time In 02/04/19 15:31:00 02/04/19 15:31:00 Time Out 02/04/19 16:08:00 02/04/19 16:08:00 Procedure Trigger Finger Release Trigger Finger Release Last Modified By: Toshia Plascencia RN, Barbara RN 02/04/19 16:16:05 02/04/19 16:16:05 Surgical Procedures MAGR Pre-Care Text: A.20 Verifies operative procedure, surgical site, and laterality Im.150 Develops individualized plan of care Entry 1 Entry 2 Procedure Trigger Finger Release Excision Cyst Primary Procedure Yes No Primary Surgeon Daquan Antunez James Andrew DO Andrew DO Modifiers Surgeon Comment RELEASE TRIGGER FINGER LEFT RING FINGER AND E/O CYST LEFT RING FINGER Start 02/04/19 15:50:00 02/04/19 15:50:00 Stop 02/04/19 16:05:00 02/04/19 16:05:00 Anesthesia Type MAC MAC Surgical Service Orthopedics Orthopedics Wound Class Clean Clean-Contaminated Technique Details Closure Technique Primary Primary Entire procedure No No was performed via laparoscope or robotic assistance Last Modified By: Toshia Plascencia RN, Barbara RN 02/04/19 16:05:23 02/04/19 16:05:23 Post-Care Text: O.730 The patient's care is consistent with the individualized perioperative plan of care General Case Data MAGR Pre-Care Text: A.350.1 Classifies surgical wound Entry 1 Case Information OR MAGR OR 05 Case Level Level 3 Wound Class Clean-Contaminated Specialty Orthopedics ASA Class 3 Diagnosis Preop Diagnosis TRIGGER FINGER AND CYST Postop Same As Preop Yes LEFT RING FINGER Postop Diagnosis TRIGGER FINGER AND CYST LEFT RING FINGER Blunt or No Is the procedure No penetrating injury considered occured prior to Emergent/Urgent? the start of the procedure: Last Modified By: Toshia Plascencia RN 02/04/19 15:52:51 Post-Care Text: O.760 Patient receives consistent and comparable care regardless of the setting Time Out MAGR Entry 1 Time out date/time 02/04/19 15:49:00 All team members Yes have introduced themselves by name and role Surgeon, Yes Surgeon reviews Yes anesthesia, nurse critical or confirm patient, unexpected steps, site, procedure operative duration, anticipated blood loss Anesthesia team Yes Nursing team Yes reviews any reviews sterility patient-specific (including concerns indicator results) and equipment issues/concerns Antibiotic Antibiotic N/A prophylaxis given within the last 60 minutes Is essential N/A imaging displayed? Last Modified By: Toshia Plascencia RN 02/04/19 15:50:55 Patient Positioning MAGR Pre-Care Text: A.280 Identifies baseline musculoskeletal status Im.40 Positions the patient Im.80 Applies safety devices Entry 1 Procedure Trigger Finger Release, Body Position Supine Excision Cyst Left Arm Position Extended on padded arm Right Arm Position Extended on padded arm board board Left Leg Position Extended Right Leg Position Extended Feet Uncrossed? Yes Press Points Checked Yes Positioning Device Arm Boards, Arm Strap, Outcome Met (O.80) Yes Pillow, Safety Strap Last Modified By: Toshia Plascencia RN 02/04/19 15:41:00 Post-Care Text: E.290 Evaluates musculoskeletal status O.80 Patient is free from signs and symptoms of injury related to positioning Skin Prep MAGR Pre-Care Text: A.30 Verifies allergies Im.270 Performs skin preparation Im.270.1 Implements protective measures to prevent skin and tissue injury due to chemical sources Entry 1 Skin Prep Syntegrity Prep Agents (Im.270) Povidone-Iodine Prep By Toshia Plascencia RN Prep Area (Im.270) Elbow and forearm, Hand Skin Prep Agent Dry Yes Without Pooling Hair Removal Syntegrity Hair Removal Methods No hair removal performed Outcome Met (O.100) Yes Last Modified By: Toshia Plascencia RN 02/04/19 15:41:37 Post-Care Text: E.10 Evaluates for signs and symptoms of physical injury to skin and tissue O.100 Patient is free from signs and symptoms of chemical injury Counts Verification MAGR Pre-Care Text: A.20 Verifies operative procedure, surgical site, and laterality A.20.2 Assesses the risk for unintended retained foreign body Im.20 Performs required counts Entry 1 Procedure Trigger Finger Release, Excision Cyst Counts Verification Initial Counts Items included in Sponges, Sharps Initial Counts Manual the Initial Count Method Initial Counts Toshia Plascencia RN, Initial Count Time 02/04/19 15:42:00 Performed By Paloma Esparza Counts Verification Final Counts Items Included in Sponges, Sharps Final Count Status Correct Final Count Final Counts Toshia Plascencia RN, Final Count Time 02/04/19 15:58:00 Performed By Paloma Esparza Surgeon notified of Yes final counts status Outcome Met (O.20) Yes Last Modified By: Toshia Plascencia RN 02/04/19 15:58:29 Post-Care Text: E.50 Evaluates results of the surgical count O.20 Patient is free from unintended retained foreign objects Tourniquet MAGR Pre-Care Text: A.240 Assesses baseline skin condition Im.120 Implements protective measures to prevent skin or tissue injury due to mechanical sources Entry 1 Tourniquet Type TOURNQUET/AC OR2 (3603) Cuff Size 9 cm Setting 250 mmHg Placement Arm upper Padding (Im.120) Yes Placement Details Left Tourniquet Times Inflated 02/04/19 15:49:00 Deflated 02/04/19 16:03:00 Total Time 14 Applied By Daquan Antunez Outcome Met (O.60) Yes Jeremy DO Last Modified By: Toshia Plascencia RN 02/04/19 16:21:11 Post-Care Text: E.10 Evaluates for signs and symptoms of physical injury to skin and tissue O.60 Patient is free from sign and symptoms of injury caused by extraneous objects Cautery MAGR Pre-Care Text: A.240 Assesses baseline skin condition A.40 Verifies presence of prosthetics or corrective devices Im.50 Implements protective measures to prevent injury due to electrical sources Entry 1 ESU Type Electrosurgical Unit Identification [id number] Number ESU Settings Syntegrity Cut Setting 30 Coag Setting 30 Bipolar Setting 10 Grounding Pad Details Grounding Pad Yes Grounding Pad Site Table Grounding Pad Needed? Outcome Met (O.10) Yes Last Modified By: Toshia Plascencia RN 02/04/19 15:48:58 Post-Care Text: E.10 Evaluates for signs and symptoms of physical injury to skin and tissue O.10 Patient is free from signs and symptoms of injury related to thermal sources Cultures and Specimens MAGR Pre-Care Text: A.350 Assesses susceptibility for infection A.10 Confirms patient identity Im.320 Manages culture specimen collection Im.330 Manages specimen handling and disposition Entry 1 Cultures Ordered No Specimens Ordered Yes Outcome Met (O.40) Yes Last Modified By: Toshia Plascencia RN 02/04/19 15:58:34 Post-Care Text: E.40 Evaluates correct processes have been performed for specimen handling and disposition O.40 Patient's specimen(s) is managed in the appropriate manner Medication Administration MAGR Pre-Care Text: A.210 Identifies physiological status Im.220 Administers prescribed medications Entry 1 Entry 2 Time Administered 02/04/19 15:49:00 02/04/19 16:01:00 Medication lidocaine 1% triple antiobiotic oint Route of Admin SubQ TOP Dose 5 mL Volume 20 mL By Daquan Antunez James Andrew DO Andrew DO Outcome Met (O.130) Yes Yes Last Modified By: Toshia Plascencia RN, Barbara RN 02/04/19 15:50:24 02/04/19 15:50:24 Post-Care Text: E.20 Evaluates response to medications O.130 Patient receives appropriately administered medication(s) Dressing/Packing MAGR Pre-Care Text: A.350 Assesses susceptibility for infection Im.290 Administer care to wound sites Entry 1 Skin Prep Agent No Site Hand Removed Prior to Dressing? Site Details Left Dressing Item Details Dressing Item 4x4's, Non-adhesive Tape (Im.290) Elastic Sports Bandage (Im.290) dressing Outcome Met Yes Last Modified By: Toshia Plascencia RN 02/04/19 15:59:16 Post-Care Text: E.200 Evaluates progress of wound healing O.200 Patient's wound perfusion is consistent with or improved from baseline levels Departure from OR MAGR Entry 1 Present on Depart Oxygen Via Stretcher Post-op Destination PACU II Skin DFO Condition Dry Description Condition Intact Description Report Given To Stefanie Garibay RN Airway Maintenance Patient Status Stable Oxygen in Use? Yes Airway Device Simple mask Flow Rate 15 L Last Modified By: Toshia Plascencia RN 02/04/19 16:16:38 Case Comments Finalized By: Toshia Plascencia RN Document Signatures Signed By: Toshia Plascencia RN 02/04/19 16:21 Toshia Plascencia RN 02/04/19 16:16 Toshia Plascencia RN 02/05/19 07:38 Toshia Plascencia RN 02/05/19 07:41 Unfinalized History Date/Time Username Reason for Unfinalizing Freetext Reason for Unfinalizing 02/04/19 16:20 MHBLONG Modify Pick List 02/05/19 07:38 MHBLONG Modify Pick List 02/05/19 07:[address] [facility] Medication Managementon 01-09 Medication Management [id number] GTIFF [facility] Provider Orderson 02-05-2019 Provider Orders [id number] GTIFF Normal [facility] Anesthesia Noteon 02-04-2019 Anesthesia Note Patient: SHEY BOSS Age: 68 years Sex: FEMALE : 52 Associated Diagnoses: None Author: Alirio Mcclellan MD Preoperative Information Anesthesia history: Patient history: No prior anesthesia problems. Review of Systems Constitutional: Negative. Respiratory: No shortness of breath. Cardiovascular: No chest pain. Health Status Allergies: Allergic Reactions (All) No known allergies Current medications: Home Medications (11) Active acetaminophen 500 mg oral tablet 500 mg = 1 tab(s), PRN, PO, q12hr Simi-D 24 Hour Allergy & Congestion 180 mg-240 mg oral tablet, extended release 1 tab(s), PO, Daily calcium-vitamin D 600 mg-500 intl units oral tablet, extended release 2 tab(s), PO, qAM CLA 1 tab(s), PO, BID DHEA 25 mg oral capsule 25 mg = 1 cap(s), PO, Daily pantoprazole 40 mg intravenous injection 40 mg, PO, Daily potassium gluconate 595 mg (99 mg elemental potassium) oral tablet 595 mg = 1 tab(s), PO, Daily raNITIdine 150 mg oral capsule 150 mg = 1 cap(s), PO, BID traMADol 50 mg oral tablet 50 mg = 1 tab(s), PRN, PO, q12hr vitamin E 400 intl units oral capsule 400 International_Unit = 1 cap(s), PO, Daily zolpidem 5 mg oral tablet 10 mg = 2 tab(s), PRN, PO, Once a day (at bedtime) Problem list (past medical history): All Problems Chronic back pain / SNOMED CT 385331319 / Confirmed Former smoker / SNOMED CT 12438926 / Confirmed GERD (gastroesophageal reflux disease) / SNOMED CT 200731664 / Confirmed Scar tissue / SNOMED CT 017993186 / Confirmed Sleep apnea / SNOMED CT 895286067 / Confirmed Histories Family History: No family history items have been selected or recorded. Procedure history: Tonsillectomy (766471427). Epidural injection of lumbar spine using fluoroscopic guidance (1169203542). Social History Alcohol Assessment Use: Current. Beer, 1-2 times per week Tobacco Assessment Former smoker, quit more than 30 days ago Tobacco Use:. Started age 17 Years. Stopped age 61 Years. Substance Abuse Assessment Substance use: Never. . Social & Psychosocial Habits Alcohol 01/28/2019 Alcohol Use: Current Type: Beer Frequency: 1-2 times per week Substance Abuse 01/28/2019 Substance use: Never Tobacco 01/28/2019 Smoking tobacco use: Former smoker, quit more Started at age: 17 Years Stopped at age: 61 Years . Physical Examination VS/Measurements Vital Signs (last 24 hrs) Last Charted Heart Rate Peripheral 64 bpm (FEB 04 12:10) Resp Rate 16 br/min (FEB 04 12:10) SBP H 145mmHg (FEB 04 12:15) DBP 78 mmHg (FEB 04 12:15) SpO2 97 % (FEB 04 12:10) Pain assessment: Self-reports no pain. General: Alert and oriented, No acute distress. Airway: Mallampati classification: II (soft palate, fauces, uvula visible). Mouth: Dentures ( Upper and lower dentures ). Respiratory: Respirations are non-labored. Cardiovascular: Normal rate, Regular rhythm. Review / Management Laboratory Results Plan [place] [employer] Anesthesiologists#(ASA) physical status classification: Class III. Anesthetic Preoperative Plan Anesthesia: Monitored anesthesia care. Anesthetic plan, risks, benefits, and alternatives discussed with the patient and/or family. Patient verbalized understanding. Informed consent was given. Consent was signed by the patient. Communication: face to face with patient 10 minutes. Anesthetic technique: Monitored anesthesia care. [Electronically Signed on: 02/04/2019 15:44 EDT] Alirio Mcclellan MD [Verified on: 02/04/2019 15:44 EDT] Alirio Mcclellan MD [facility] Inpatient Patient Summaryon 02-04-2019 Inpatient Patient Summary [address] [address] Patient Discharge Instructions Name: SHEY BOSS : 52 Patient [address]: [address] [place] [address] Primary Care Provider: Name: LATRELL JACK After you are discharged if you find you have any questions, please, call [phone] ext [phone] to speak to a nurse. Discharge Diagnosis: Trigger finger Prescription Information: If you have been given a prescription for narcotics, seek immediate medical attention if you have any difficulty breathing or any sudden status changes such as confusion and sleepiness. If you or anyone you know is experiencing suicidal thoughts, mental health, alcohol and/or drug addiction problems; contact the [facility] 30/01 Crisis Hotline -text 4HTKG ur 556219. If you received any narcotics, sedation, or any other medication that causes drowsiness for the next 24 hours, unless otherwise directed: ? Do not drive a car. ? Do not operate machinery such as power tools, lawn mowers, drills, sewing machines, or stoves ? Avoid alcoholic beverages and drugs for allergies, nerves, or sleep ? Do not make important personal or business decisions or sign any legal documents [facility] would like to thank you for allowing us to assist you with your healthcare needs. The following includes patient education materials and information regarding your injury/illness. SHEY BOSS has been given the following list of follow-up instructions, prescriptions, and patient education materials: Follow-up Instructions With: Address: When: Dqauan Antunez [address] [place] [address], [address] [place] [address] Business (2) 02/12/2019 2:00 PM With: Address: When: [facility] [place] [place] [id number] Business (1) Medications During the course of your visit, your medication list was updated with the most current information. The details of those changes are reflected below: Medications to Continue That Have Not Changed Other Medications acetaminophen (acetaminophen 500 mg oral tablet) 1 tab(s) Oral Every 12 hours scheduled time as needed as needed for fever. acetaminophen-codeine (Tylenol with Codeine #3 oral tablet) 1 tab(s) Oral Every 6 hours as needed for pain. calcium-vitamin D (calcium-vitamin D 600 mg-500 intl units oral tablet, extended release) 2 tab(s) Oral once a day (in the morning). dehydroepiandrosterone (prasterone) (DHEA 25 mg oral capsule) 1 cap(s) Oral every day. fexofenadine-pseudoephe drine (Simi-D 24 Hour Allergy & Congestion 180 mg-240 mg oral tablet, extended release) 1 tab(s) Oral every day. pantoprazole (pantoprazole 40 mg intravenous injection) 40 Milligram Oral every day. potassium gluconate (potassium gluconate 595 mg (99 mg elemental potassium) oral tablet) 1 tab(s) Oral every day. raNITIdine (raNITIdine 150 mg oral capsule) 1 cap(s) Oral 2 times a day. Template Non-Formulary (CLA) 1 tab(s) Oral 2 times a day. traMADol (traMADol 50 mg oral tablet) 1 tab(s) Oral Every 12 hours scheduled time as needed as needed for pain. vitamin E (vitamin E 400 intl units oral capsule) 1 cap(s) Oral every day. zolpidem (zolpidem 5 mg oral tablet) 2 tab(s) Oral once a day (at bedtime) as needed for sleep. It is important to always keep an active list of medications available so that you can share with other providers and manage your medications appropriately. As an additional courtesy, we are also providing you with your final active medications list that you can keep with you. acetaminophen (acetaminophen 500 mg oral tablet) 1 tab(s) Oral Every 12 hours scheduled time as needed as needed for fever. acetaminophen-codeine (Tylenol with Codeine #3 oral tablet) 1 tab(s) Oral Every 6 hours as needed for pain. calcium-vitamin D (calcium-vitamin D 600 mg-500 intl units oral tablet, extended release) 2 tab(s) Oral once a day (in the morning). dehydroepiandrosterone (prasterone) (DHEA 25 mg oral capsule) 1 cap(s) Oral every day. fexofenadine-pseudoephe drine (Simi-D 24 Hour Allergy & Congestion 180 mg-240 mg oral tablet, extended release) 1 tab(s) Oral every day. pantoprazole (pantoprazole 40 mg intravenous injection) 40 Milligram Oral every day. potassium gluconate (potassium gluconate 595 mg (99 mg elemental potassium) oral tablet) 1 tab(s) Oral every day. raNITIdine (raNITIdine 150 mg oral capsule) 1 cap(s) Oral 2 times a day. Template Non-Formulary (CLA) 1 tab(s) Oral 2 times a day. traMADol (traMADol 50 mg oral tablet) 1 tab(s) Oral Every 12 hours scheduled time as needed as needed for pain. vitamin E (vitamin E 400 intl units oral capsule) 1 cap(s) Oral every day. zolpidem (zolpidem 5 mg oral tablet) 2 tab(s) Oral once a day (at bedtime) as needed for sleep. Take only the medications listed above. Contact your doctor prior to taking any medications not on this list. Diet & Activity Patient Activity Level: Patient Diet: Regular Patient Activity Restrictions: Comment: Patient education materials, if any, will display below DR. OHARA POST OPERATIVE INSTRUCTIONS FOR FINGER SURGERY/MALLET FINGER REPAIR SURGEONS WRITTEN INSTRUTCTIONS:' -Keep your hand elevated above your elbow for the first 24 hours after surgery and apply an ice bag at intervals for the first 24 hours -Wiggle the unaffected fingers frequently while awake -DO NOT lift heavy objects or aircraft engine technician forcefully with the affected hand -DO NOT remove the dressing. This will be done at your first post operative visit at the office. If the outer wrap/bandage is too tight, you may loosen it. -Keep the dressing clean and dry -You may shower in 1 day but DO NOT get the dressing wet -If you have any questions or concerns, please call the office at [phone] or go to the emergency room -Follow up as scheduled Viruses or Bacteria What?s got you sick? Antibiotics only treat bacterial infections. Viral illnesses cannot be treated with antibiotics. When an antibiotic is not prescribed, ask your healthcare professional for tips on how to relieve symptoms and feel better. Usual Cause Illness Viruses Bacteria Antibiotic Needed Cold/Runny Nose NO Bronchitis/Chest Cold (in otherwise healthy children and adults) NO Whooping Cough Yes Flu NO Strep Throat Yes Sore Throat (except strep) NO Fluid in the middle ear (otitis media with effusion) NO Urinary Tract Infection Yes Antibiotics Aren?t Always the Answer www.cdc.gov/getsmart GET SMART Know When Antibiotics Work [place] Department of Health and Human Services Centers for Disease Control and Prevention March 2014 [facility] MAGR Postoperative Recordon 02-04-2019 MAGR Postoperative Record MAGR Phase II Record Summary Primary Physician: Daquan Antunez DO Finalized Date/Time: 02/04/19 17:11:50 Pt. Name: SHEY BOSS/Sex: 1950 FEMALE Med Rec #: [id number] Physician: Daquan Antunez DO Financial #: [id number] Pt. Type: D Room/Bed: / Admit/Disch: 02/04/19 11:44:00 - 02/04/19 17:05:00 Institution: [facility] II Case Times MAGR Pre-Care Text: Patient is free from s/s of injury. Patient remains free from compromised physical state related to surgery or anesthesia. Patient comfort maintained. Patient/family verbalize understanding of discharge instructions. Entry 1 In PACU II 02/04/19 16:10:00 Discharge from PACU 02/04/19 17:05:00 II Last Modified By: Stefanie Garibay RN 02/04/19 17:11:48 Post-Care Text: The patient remains free from s/s of injury. Patient's vital signs stable, circulation maintained, return to preop mental and physical status, opsite/dressing intact, minimal or absent nausea and vomiting, tolerates po intake. Patient verbalizes adequate pain control. Patient/family express understanding of discharge instructions. Finalized By: Stefanie Garibay RN Document Signatures Signed By: Stefanie Garibay RN 02/04/19 17:11 [facility] MAGR Preoperative Recordon 0 02-04-2019 MAGR Preoperative Record MAGR Pre-Op Record Summary Primary Physician: Daquan Antunez DO Finalized Date/Time: 02/04/19 15:37:19 Pt. Name: SHEY BOSS/Sex: 1950 FEMALE Med Rec #: [id number] Physician: Daquan Antunez DO Financial #: [id number] Pt. Type: D Room/Bed: / Admit/Disch: 02/04/19 11:44:00 - Institution: Pre-Op Case Times MAGR Pre-Care Text: Patient will be optimally prepared for surgery. Patient is free from s/s of injury. Provide information to patient/family related to plan of care. Verify patient allergies. Confirm identity and verify consent before the operative or invasive procedure. Entry 1 Patient Arrival Time 02/04/19 12:02:00 Preop Departure 02/04/19 15:33:00 Last Modified By: Toshia Plascencia RN 02/04/19 15:37:17 Post-Care Text: Patient is prepared mentally and physically and is ready for surgery. The patient remains free from s/s of injury. Patient/family express understanding of plan of care and participate in decisions affecting his or her perioperrative plan of care. Allergies documented appropriately. Patient identifiers and consent correct. General Comments: Pt arrives per amb. Pt denies any CP, SOb, Hx of S/S of flu. pt states has sleep apnea and wears CPAP at night. Finalized By: Toshia Plascencia RN Document Signatures Signed By: Toshia Plascencia RN 02/04/19 15:37 Normal [facility] Operative Report - Surgeon/P shalini 02-04-2019 Operative Report - Surgeon/Physician Procedure: Release of trigger finger left ring finger Excision of cyst left ring finger Pre Op Diagnosis: Trigger finger left ring finger Cyst left ring finger Post Op Dianosis: Same Surgeon: Dr. Renato Antunez DO Anesthesia: Conscious sedation with local Indication for Surgery: Painful triggering with failure of conservative treatment. Painful cyst palpated in the vicinity of the A1 shirin Findings: Stenotic A1 shirin with triggering. Small cyst just on the outside A1 shirin less than 1 cm in diameter the cyst was not connected to the tendon sheath Blood Loss: Scant Specimen: None Procedure Summary: The patient was positioned supine. The upper extremity was sterilely prepped and draped in usual fashion and a timeout was taken in the operating room. The hand was exsanguinated and a tourniquet was inflated to 250 mmHg. After administration of anesthesia ( 3 cc of 1% lidocaine injected locally by me )transverse incision was made over the A1 shirin. Blunt dissection was carried down towards A1 shirin. The neurovascular structures were protected with Ragnell retractors. There was a cyst on the outside of the A1 shirin slightly ulnar and orientation. This was readily removed along with the small piece of the A1 shirin. This was submitted to the left wrist pathologic studies. An incision was made over the A1 shirin with a 15 blade. The release was completed proximally and distally with a pair of tenotomy scissors. I then took the finger through range of motion and ensured that there was no residual triggering. The tendons were gliding freely. The wound was then irrigated and the skin was closed with nylon suture. Sterile dressings were applied along with an Bairon bandage. Complications: None [Electronically Signed on: 02/04/2019 16:37 EDT] Daquan Antunez DO [Verified on: 02/04/2019 16:37 EDT] Daquan Antunez DO [facility] Patient Handouton 02-04-[address] OHARA POST OPERATIVE INSTRUCTIONS FOR FINGER SURGERY/MALLET FINGER REPAIR SURGEONS WRITTEN INSTRUTCTIONS:' -Keep your hand elevated above your elbow for the first 24 hours after surgery and apply an ice bag at intervals for the first 24 hours -Wiggle the unaffected fingers frequently while awake -DO NOT lift heavy objects or aircraft engine technician forcefully with the affected hand -DO NOT remove the dressing. This will be done at your first post operative visit at the office. If the outer wrap/bandage is too tight, you may loosen it. -Keep the dressing clean and dry -You may shower in 1 day but DO NOT get the dressing wet -If you have any questions or concerns, please call the office at [phone] or go to the emergency room -Follow up as scheduled [facility] Progress Note - Nurseon 01-08 Progress Note - Nurse Spoke with pt regarding arrival time of 1145 and NPO status. Verbalized understanding. 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 Verbalized understanding. [Electronically Signed on: 02/01/2019 14:53 EDT] Kika Akers RN [Verified on: 02/01/2019 14:53 EDT] Kika Akers RN [facility] Coding Summaryon 01-29-2019 Coding Summary CODING DATE: 019 [facility] STATUS: Home PAYOR: Medicare MC APC DESCRIPTION 5733 Level 3 Minor Procedures ADMIT DX: REASON FOR VISIT DX: Z01.818 Encounter for other preprocedural examination FINAL DX: PRINCIPAL: Z01.818 Encounter for other preprocedural examination SECONDARY: PYMT PROC APC STAT DESCRIPTION DOCTOR NAME DATE NOTE: The code number assigned matches the documented diagnosis and / or procedure in the patient's chart. However, the narrative phrase printed from the coding software may appear abbreviated, or result in slightly different terminology. Coded By: Lili Cueto Date Saved: 01/29/2019 01:42 pm [facility] .Auto Diff 1on 01-28-2019 Auto [place] % 8 % Normal 1-12 [facility] Comment on above: Performed By: #### 7 [id number], [id number] #### [facility] (DEFAULT) [address] [place] [address]67 Baso Abs# 0.0 x10 Normal 0.0-0.2 [facility] Comment on above: Performed By: #### 7 [id number], [id number] #### [facility] (DEFAULT) [address] [place] [address] Basophils/100 WBC (Bld) 0.4 % Normal 0.2-2.0 [facility] Comment on above: Performed By: #### 7 [id number], [id number] #### [facility] (DEFAULT) [address] [place] [address] 49057 Eos Abs# 0.2 x10 Normal 0.0-0.4 [facility] Comment on above: Performed By: #### 7 [id number], [id number] #### [facility] (DEFAULT) [address] [place] [address] 15228 Eosinophils/100 WBC (Bld) 3.5 % Normal 0.9-4.0 [facility] Comment on above: Performed By: #### 7 [id number], [id number] #### [facility] (DEFAULT) [address] [place] [address]37 Lymphocytes (Bld) [#/Vol] 1.6 x10 Normal 1.3-2.9 [facility] Comment on above: Performed By: #### 7 [id number], [id number] #### [facility] (DEFAULT) [address] [place] [address] 83814 Lymphocytes/100 WBC (Bld) 32 % Normal 14-48 [facility] Comment on above: Performed By: #### 7 [id number], [id number] #### [facility] (DEFAULT) [address] [place] [address] [place] Abs# 0.4 x10 Normal 0.0-0.8 [facility] Comment on above: Performed By: #### 7 [id number], [id number] #### [facility] (DEFAULT) [address] [place] [address] 20570 Neut Abs# 2.8 x10 Normal 1.5-9.2 [facility] Comment on above: Performed By: #### 7 [id number], [id number] #### [facility] (DEFAULT) [address] [place] [address] 90728 Neutrophils/100 WBC (Bld) 56 % Normal 44-88 [facility] Comment on above: Performed By: #### 7 [id number], [id number] #### [facility] (DEFAULT) [address] [place] [address] 47138 CBC w/ Auto Diffon 9 Erythrocyte distribution width (RBC) [Ratio] 13.4 % Normal 11.5-15.0 [facility] Comment on above: Performed By: #### 7 [id number], [id number] #### [facility] (DEFAULT) [address] [place] [address] Hematocrit (Bld) [Volume fraction] 40.4 % Normal 33.7-40.4 [facility] Comment on above: Performed By: #### 7 [id number], [id number] #### [facility] (DEFAULT) [address] [place] [address] Hemoglobin (Bld) [Mass/Vol] 13.9 g/dL Normal 11.3-15.9 [facility] Comment on above: Performed By: #### 7 [id number], [id number] #### [facility] (DEFAULT) [address] [place] [address] Man Diff? Auto Normal [facility] Comment on above: Performed By: #### 7 [id number], [id number] #### [facility] (DEFAULT) [address] [place] [address] MCH (RBC) [Entitic mass] 31 pg Normal 24-34 [facility] Comment on above: Performed By: #### 7 [id number], [id number] #### [facility] (DEFAULT) [address] [place] [address] MCHC (RBC) [Mass/Vol] 34 g/dL Normal 26-37 [facility] Comment on above: Performed By: #### 7 [id number], [id number] #### [facility] (DEFAULT) [address] [place] [address] MCV (RBC) [Entitic vol] 90 fL Normal 81-100 [facility] Comment on above: Performed By: #### 7 [id number], [id number] #### [facility] (DEFAULT) [address] [place] [address] Platelet mean volume (Bld) [Entitic vol] 10.3 fL High 6.3-10.2 [facility] Comment on above: Performed By: #### 7 [id number], [id number] #### [facility] (DEFAULT) [address] [place] [address] 23488 Platelets (Bld) [#/Vol] 199 x10 Normal 138-427 [facility] Comment on above: Performed By: #### 7 [id number], [id number] #### [facility] (DEFAULT) [address] [place] [address] 00732 RBC (Bld) [#/Vol] 4.47 x10 Normal 3.70-5.30 [facility] Comment on above: Performed By: #### 7 [id number], [id number] #### [facility] (DEFAULT) [address] [place] [address] 33257 WBC (Bld) [#/Vol] 5.1 x10 Normal 3.5-10.5 [facility] Comment on above: Performed By: #### 7 [id number], [id number] #### [facility] (DEFAULT) [address] [place] [address] Vital Signs Date Time Vital Sign Value Performing Clinician Facility 03-20-2024 13:23-0400 Diastolic blood pressure 81 mm[Hg] Wilson Sarmini [facility] 03-20-2024 13:23-0400 Heart rate 66 /min Wilson Sarmini [facility] 03-20-2024 13:23-0400 Mean blood pressure 112 mm[Hg] Wilson Sarmini [facility] 03-20-2024 13:23-0400 Respiratory rate 15 /min Wilson Sarmini [facility] 03-20-2024 13:23-0400 SaO2% (BldA) [Mass fraction] 94 % Wilson Sarmini [facility] 03-20-2024 13:23-0400 Systolic blood pressure 173 mm[Hg] Wilson Sarmini [facility] 03-20-2024 13:15-0400 Diastolic blood pressure 78 mm[Hg] Wilson Sarmini [facility] 03-20-2024 13:15-0400 Heart rate 64 /min Wilson Sarmini [facility] 03-20-2024 13:15-0400 Mean blood pressure 105 mm[Hg] Wilson Sarmini [facility] 03-20-2024 13:15-0400 Respiratory rate 13 /min Wilson Sarmini [facility] 03-20-2024 13:15-0400 SaO2% (BldA) [Mass fraction] 96 % Wilson Sarmini [facility] 03-20-2024 13:15-0400 Systolic blood pressure 159 mm[Hg] Wilson Sarmini [facility] 03-20-2024 13:05-0400 Diastolic blood pressure 76 mm[Hg] Wilson Sarmini [facility] 03-20-2024 13:05-0400 Heart rate 64 /min Wilson Sarmini [facility] 03-20-2024 13:05-0400 Mean blood pressure 99 mm[Hg] Wilson Sarmini [facility] 03-20-2024 13:05-0400 Respiratory rate 12 /min Wilson Sarmini [facility] 03-20-2024 13:05-0400 SaO2% (BldA) [Mass fraction] 96 % Wilson Sarmini [facility] 03-20-2024 13:05-0400 Systolic blood pressure 145 mm[Hg] Wilson Sarmini [facility] 03-20-2024 12:58-0400 Body temperature 97.16 [degF] Wilson Sarmini [facility] 03-20-2024 12:50-0400 Respiratory rate 15 /min Wilson Sarmini [facility] 03-20-2024 12:45-0400 Respiratory rate 18 /min Wilson Sarmini [facility] 03-20-2024 11:14-0400 Blood Pressure Location Wilson Sarmini [facility] 03-20-2024 11:14-0400 Body temperature 97.7 [degF] Wilson Sarmini [facility] 03-20-2024 11:14-0400 Respiratory rate 18 /min Wilson Sarmini [facility] 02-26-2024 09:12-0400 Blood Pressure Location Wilson Sarmini [facility] 02-26-2024 09:12-0400 Diastolic blood pressure 81 mm[Hg] Wilson Sarmini [facility] 02-26-2024 09:12-0400 Heart rate 66 /min Wilson Sarmini [facility] 02-26-2024 09:12-0400 Respiratory rate 16 /min Wilson Sarmini [facility] 02-26-2024 09:12-0400 Systolic blood pressure 131 mm[Hg] Wilson Sarmini [facility] 10-13-2023 09:42-0400 Diastolic blood pressure 80 mm[Hg] Pa NILL [facility] 10-13-2023 09:42-0400 Heart rate 69 /min Pa NILL [facility] 10-13-2023 09:42-0400 Mean blood pressure 102 mm[Hg] Pa NILL [facility] 10-13-2023 09:42-0400 Respiratory rate 15 /min Pa NILL [facility] 10-13-2023 09:42-0400 SaO2% (BldA) [Mass fraction] 97 % Pa NILL [facility] 10-13-2023 09:42-0400 Systolic blood pressure 146 mm[Hg] Pa NILL [facility] 10-13-2023 09:32-0400 Diastolic blood pressure 76 mm[Hg] Pa NILL [facility] 10-13-2023 09:32-0400 Heart rate 67 /min Pa NILL [facility] 10-13-2023 09:32-0400 Mean blood pressure 94 mm[Hg] Pa NILL [facility] 10-13-2023 09:32-0400 Respiratory rate 20 /min Pa NILL [facility] 10-13-2023 09:32-0400 SaO2% (BldA) [Mass fraction] 95 % Pa NILL [facility] 10-13-2023 09:32-0400 Systolic blood pressure 129 mm[Hg] Pa NILL [facility] 10-13-2023 09:27-0400 Diastolic blood pressure 71 mm[Hg] Pa NILL [facility] 10-13-2023 09:27-0400 Heart rate 70 /min Pa NILL [facility] 10-13-2023 09:27-0400 Mean blood pressure 92 mm[Hg] Pa PALMERL [facility] 10-13-2023 09:27-0400 Respiratory rate 15 /min Pa NILL [facility] 10-13-2023 09:27-0400 SaO2% (BldA) [Mass fraction] 96 % Pa NILL [facility] 10-13-2023 09:27-0400 Systolic blood pressure 134 mm[Hg] Pa PALMERL [facility] 10-13-2023 09:17-0400 Body temperature 97.16 [degF] Pa PALMERL [facility] 10-13-2023 09:10-0400 Respiratory rate 16 /min Pa PALMERL [facility] 10-13-2023 09:05-0400 Respiratory rate 16 /min Pa PALMERL [facility] 10-13-2023 08:03-0400 Body temperature 97.34 [degF] Pa PALMERL [facility] 08-11-2023 09:53-0500 Body height 160 cm Latrell Jack MD Work Phone: [facility] 08-11-2023 09:53-0500 Body mass index (BMI) [Ratio] 40.39 kg/m2 Latrell Jack MD Work Phone: [facility] 08-11-2023 09:53-0500 Body temperature 97.11 [degF] Latrell Jack MD Work Phone: [facility] 08-11-2023 09:53-0500 Body weight 103.42 kg Latrell Jack MD Work Phone: [facility] 08-11-2023 09:53-0500 Diastolic blood pressure 70 mm[Hg] Latrell Jack MD Work Phone: [facility] 08-11-2023 09:53-0500 Heart rate 94 /min Latrell Jack MD Work Phone: [facility] 08-11-2023 09:53-0500 SaO2% (BldA) [Mass fraction] 97 % Latrell Jack MD Work Phone: [facility] 08-11-2023 09:53-0500 Systolic blood pressure 140 mm[Hg] Latrell Jack MD Work Phone: [facility] Healthcare Encounters Encounter Date Encounter Type Care Provider Facility Start: 03-26-2024 End: 03-26-2024 ambulatory LUCI TOLLIVER Not Available Start: 03-26-2024 End: 03-26-2024 ambulatory Wilson Talal Sarmini Facility:[facility] Start: 03-25-2024 End: 03-25-2024 ambulatory DIOMEDES JUJU Not Available Start: 03-20-2024 End: 03-20-2024 ambulatory Wilson Talal Sarmini Facility:[facility] Start: 03-20-2024 End: 03-20-2024 Patient encounter procedure Wilson Talal Sarmini [facility] Start: 03-07-2024 End: 03-07-2024 ambulatory DIOMEDES MATUTE Not Available Start: 02-26-2024 End: 02-26-2024 ambulatory Wilson Talal Sarmini Facility:[facility] Start: 02-26-2024 End: 02-26-2024 Patient encounter procedure Wilson Talal Sarmini [facility] Start: 02-13-2024 ambulatory Pa WEBB Facility:[facility] Start: 02-09-2024 End: 02-09-2024 ambulatory LATRELL JACK Not Available Start: 10-13-2023 End: 10-13-2023 ambulatory Pa WEBB Facility:[facility] Start: 10-13-2023 End: 10-13-2023 Patient encounter procedure Pa WEBB [facility] Start: 09-12-2023 End: 09-12-2023 ambulatory Pa WEBB Facility:[facility] Start: 09-05-2023 ambulatory Pa WEBB Facility: [facility] Start: 08-11-2023 Bamboo flowsheet Latrell Jack MD Work Phone: [facility] Start: 08-11-2023 Bamboo flowsheet Latrell Jack MD Work Phone: [facility] Start: 08-11-2023 End: 08-11-2023 Office outpatient visit 25 minutes Latrell Jack MD Work Phone: [facility] Comment on above: Essential hypertensi on, benign (CMS/HCC) (Primary Dx); Chronic obstructive pulmonary disease, unspecified COPD type (CMS/HCC); Primary insomnia; Primary osteoarthritis of both knees; Hiatal hernia with gastroesophageal reflux disease without esophagitis; Seasonal allergic rhinitis due to pollen; Screening for colon cancer; Morbid obesity due to excess calories (CMS/HCC); Dyslipidemia (CMS/HCC); Encounter for long-term (current) use of medications; Body mass index [BMI] 40.0-44.9, adult (Z68.41) Start: 08-11-2023 End: 08-11-2023 ambulatory LATRELL JACK Not Available Start: 07-28-2022 End: 07-29-[address] LATRELL JACK Facility:[facility] Start: 02-22-2022 End: 02-22-[address] SHANKAR DANIEL Facility:[facility] Start: 11-11-2021 End: 11-12-[address] LATRELL JACK Facility:[facility] Start: 11-02-2021 End: 11-02-[address] SHANKAR DANIEL Facility:[facility] Start: 09-10-2021 End: 09-10-[address] WILLARD ANAND Facility:[facility] Start: 09-09-2021 Encounter for prepro cedural laboratory examination [facility] Start: 09-07-2021 End: 09-07-[address] LATRELL JACK Facility:[facility] Start: 09-07-2021 End: 09-07-2021 Encounter for preprocedural laboratory examination DR LATRELL JACK Facility:[facility] Start: 09-03-2021 Encounter for prepro cedural cardiovascular examination [facility] Start: 09-02-2021 End: 09-03-[address] LATRELL JACK Facility:[facility] Start: 09-02-2021 End: 09-03-2021 Encounter for preprocedural cardiovascular examination DR LATRELL JACK Facility:[facility] Procedures Date Procedure Procedure Detail Performing Clinician Start: 03-20-2024 Esophagogastroduodenoscopy Katie george Start: 10-13-2023 Colonoscopy Pa WEBB Hand tendon repaired Pa WEBB Open reduction of fr acture of ankle with internal fixation Pa NILL Repair of meniscus Pa Maximo MORALES Tonsillectomy Pa NILEmily Plan of Treatment Date Care Activity Detail Author Start: 02-09-2024 End: 02-09-2024 Patient encounter procedure 02/09/2024 9:45 AM EDT [facility] [address] [place] [phone] Latrell Jack MD [address] [place] [phone] TRACYS LISA Start: 08-11-2023 End: 08-11-2024 Basic metabolic 1998 panel - Serum or Plasma Basic metabolic panel Lab Routine Encounter for long-term (current) use of medications Expected: 08/11/2023 (Approximate), Expires: 08/11/2024 [facility] Comment on above: Expected: 08/11/2023 (Approximate), Expires: 08/11/2024 Start: 08-11-2023 End: 08-11-2024 CBC W Auto Differential panel - Blood CBC and differential Lab Routine Encounter for long-term (current) use of medications Expected: 08/11/2023 (Approximate), Expires: 08/11/2024 [facility] Comment on above: Expected: 08/11/2023 (Approximate), Expires: 08/11/2024 Start: 08-11-2023 End: 08-11-2024 Hemoglobin A1c measurement Hemoglobin A1c Lab Routine Morbid obesity due to excess calories (CMS/HCC) Expected: 08/11/2023 (Approximate), Expires: 08/11/2024 [facility] Work Phone: Comment on above: Expected: 08/11/2023 (Approximate), Expires: 08/11/2024 Start: 08-11-2023 End: 08-11-2024 Hepatic function 2000 panel - Serum or Plasma Hepatic function panel Lab Routine Encounter for long-term (current) use of medications Expected: 08/11/2023 (Approximate), Expires: 08/11/2024 [facility] Comment on above: Expected: 08/11/2023 (Approximate), Expires: 08/11/2024 Start: 08-11-2023 End: 08-11-2024 Lipid 1996 panel - Serum or Plasma Lipid panel Lab Routine Dyslipidemia (CMS/HCC) Expected: 08/11/2023 (Approximate), Expires: 08/11/2024 [facility] Comment on above: Expected: 08/11/2023 (Approximate), Expires: 08/11/2024 Start: 08-11-2023 End: 08-11-2024 Thyrotropin [Units/volume] in Serum or Plasma TSH Lab Routine Morbid obesity due to excess calories (CMS/HCC) Expected: 08/11/2023 (Approximate), Expires: 08/11/2024 [facility] Comment on above: Expected: 08/11/2023 (Approximate), Expires: 08/11/2024 Start: 08-11-2023 End: 08-11-2023 Patient encounter procedure 08/11/2023 9:45 AM EST Office Visit [facility] [address] [place] [address] Latrell Jack MD [address] [place] [address] Arrived [facility] Comment on above: Arrived Start: 03-10-2023 Influenza vaccination Influenza Vacc ine (#1) [facility] Start: 1991 Screening for malign ant neoplasm of breast Mammogram [facility] Start: 1950 Screening for malign ant neoplasm of colon [facility] Immunizations Immunization Date Immunization Notes Care Provider Fa cility 04-09-2023 influenza virus vacc ine, unspecified formulation Pa NILL [facility] 05-03-2022 SARS-CoV-2 (COVID-19 ) [id number] Pa NILL [facility] 05-03-2022 influenza virus vacc ine, unspecified formulation Latrell Jack MD Work Phone: [facility] 04-12-2021 influenza virus vacc ine, unspecified formulation Katie Hairston [facility] 04-12-2021 SARS-CoV-2 (COVID-19 ) mRNA BNT-162b2 vax Pa NILL [facility] Comment on above: Result Comment: 2023: [id number] 09-14-2020 SARS-CoV-2 (COVID-19 ) mRNA BNT-162b2 vax Pa NILL [facility] Comment on above: Result Comment: 2023: [id number] 08-27-2020 SARS-CoV-2 (COVID-19 ) mRNA BNT-162b2 vax Pa NILL [facility] Comment on above: Result Comment: 2023: [id number] 06-16-2020 influenza virus vacc ine, unspecified formulation Wilson Sarmini [facility] 05-16-2019 influenza virus vacc ine, unspecified formulation Wilson Sarmini [facility] 05-16-2019 pneumococcal polysaccharide vaccine, 23 valent Wilson Sarmini [facility] 05-12-2018 influenza virus vacc ine, unspecified formulation Wilson Sarmini [facility] 01-31-2018 pneumococcal conjuga te vaccine, 13 valent Wilson Sarmini [facility] 05-10-2016 influenza virus vacc ine, unspecified formulation Wilson Sarmini [facility] 04-16-2015 influenza virus vacc ine, unspecified formulation Wilson Sarmini [facility] Payers Date Payer Category Payer Private Health Insurance HUMANA HUMANA HMO/POS [id number] 2022-Present [address] [address] [place] [address] [id number] 2016 Medicare MEDICARE MEDICAR E RAILROAD [id number] 2016-Present [facility] RAILROAD MEDICARE [address] [address] [place] [address] Medicare [id number] 1959 Medicare [id number] 1959 Private Health Insurance [id number] 1950 Unknown [id number] 2.16.840.1.718240.3.579. 2.593 1950 Unknown [id number] 2.16.840.1.691050.3.579. 2.593 1950 Unknown [id number] 2.16.840.1.016425.3.579. 2.593 1950 Unknown [id number] 2.16.840.1.280615.3.579. 2.593 1951 Unknown [id number] 2.16.840.1.062407.3.579. 2.593 1951 Unknown [id number] 2.16.840.1.367071.3.579. 2.593 1951 Unknown [id number] 2.16.840.1.833965.3.579. 2.593 1951 Unknown [id number] 2.16.840.1.616836.3.579. 2.1259 1951 Unknown [id number] 2.16.840.1.274287.3.579. 2.1259 1951 Unknown [id number] 2.16.840.1.653697.3.579. 2.1259 1951 Unknown [id number] 2.16.840.1.173056.3.579. 2.1259 1951 Unknown [id number] 2.16.840.1.448737.3.579. 2.1259 1951 Unknown [id number] 2.16.840.1.418357.3.579. 2.727 1950 Unknown [id number] 2.16.840.1.453063.3.579. 2.727 1950 Unknown [id number] 2.16.840.1.243057.3.579. 2.727 1950 Unknown [id number] 2.16.840.1.587540.3.579. 2.727 1950 Unknown [id number] 2.16.840.1.783537.3.579. 2.727 Social History Date Type Detail Facility Start: 08-05-2023 End: 02-26-2024 Tobacco smoking status NHIS Ex-smoker [facility] End: 07-10-2011 History of tobacco use Current smoker [facility] End: 07-10-2011 History of tobacco use Cigarette Smoker [facility] Start: 08-05-2023 End: 08-11-2023 Cigarettes smoked current (pack per day) - Reported 1 [facility] Start: 08-05-2023 End: 08-11-2023 Tobacco use panel [facility] Start: 1950 Sex Assigned At Not on file N [facility] Start: 08-11-2023 Tobacco use and exposure Smokeless tobacco non-user [facility] Tobacco smoking status Never [facility] [place] Functional Status Date Assessment Result Facility 03-20-2024 Functional Status N/A [facility] 02-26-2024 Functional Status N/A [facility] 10-13-2023 Functional Status N/A [facility] Clinical Notes 09-10-2021 to 03-27-2024 Radiology Note Date & Type Note Facility 03-27-2024 Note Endoscopic Procedure Report - Other Patient: SHEY BOSS Age: 73 years Sex: Female : 1950 Associated Diagnoses: None Author: Katie Hairston MD Preoperative Information Indication for procedure and diagnosis: DYSPHAGIA Chief Complaint as above Review of Systems All systems reviewed, negative except as mentioned above Health Status Current medications: (Selected) Inpatient Medications Ordered Lactated Ringers IV Marlin 1000 mL 1,000 mL: 1,000 mL, IV, 100 mL/hr, Routine, Start date 03/20/24 12:41:00 EDT, 10 hour(s), Total volume (mL): 1,000, 100 kg, 2.12, m2 Sodium Chloride 0.9% IV Marlin 1000 mL 1,000 mL: 1,000 mL, IV, 20 mL/hr, Routine, Start date 03/20/24 6:54:00 EDT, 50 hour(s), Total volume (mL): 1,000, 100 kg, 2.12, m2 Documented Medications Documented Calcium: Calcium, 1 tab, Oral, Daily Flonase 0.05 mg/inh Vina: 2 spray(s), Nasal, Daily, Refill(s) 0, Dry nasal passages One A Day Women's Complete: Oral, Daily, Refill(s) 0, Prophylaxis Pantoprazole [address] Tab: 40 mg = 1 tab(s), Oral, Daily, Refills(s) 0, Control of stomach acid Vitamin D3 1000 intl units (25 mcg) Tab: 25 mcg = 1 tab(s), Oral, Daily, Refills(s) 0, Prophylaxis albuterol 0.083% Inh Marlin 3 mL: Refill(s) 0, 150 mL, 0 Refill(s), INHALE 3 ML(2.5 MG) BY NEBULIZER EVERY 4 HOURS NEEDED FOR SHORTNESS OF BREATH OR WHEEZING aspirin 81 mg Oral EC Tab: 81 mg = 1 tab(s), Oral, Daily, Refills(s) 0, Prophylaxis atorvastatin 40 mg Tab: 40 mg = 1 tab(s), Oral, Daily, Refills(s) 0, High cholesterol donepezil 5 mg Tab: 30 EA, 0 Refill(s), TAKE 1 TABLET BY MOUTH AT BEDTIME, Refills(s) 0 famotidine 40 mg Tab: 40 mg = 1 tab(s), Oral, Once a day (at bedtime), Refills(s) 0, Control of stomach acid losartan 25 mg Tab: 25 mg = 1 tab(s), Oral, Daily, Refills(s) 0, High blood pressure vitamin E: Oral, Daily, Refills(s) 0, Prophylaxis zolpidem 12.5 mg oral ER Tab: 12.5 mg = 1 tab(s), Oral, Once a day (at bedtime), PRN for sleep, Refills(s) 0, Home Medications (13) Active albuterol 0.083% Inh Marlin 3 mL aspirin 81 mg Oral EC Tab 81 mg = 1 tab(s), Oral, Daily atorvastatin 40 mg Tab 40 mg = 1 tab(s), Oral, Daily Calcium 1 tab, Oral, Daily donepezil 5 mg Tab famotidine 40 mg Tab 40 mg = 1 tab(s), Oral, Once a day (at bedtime) Flonase 0.05 mg/inh Vina 2 spray(s), Nasal, Daily losartan 25 mg Tab 25 mg = 1 tab(s), Oral, Daily One A Day Women's Complete , Oral, Daily Pantoprazole [address] Tab 40 mg = 1 tab(s), Oral, Daily Vitamin D3 1000 intl units (25 mcg) Tab 25 mcg = 1 tab(s), Oral, Daily vitamin E , Oral, Daily zolpidem 12.5 mg oral ER Tab 12.5 mg = 1 tab(s), PRN, Oral, Once a day (at bedtime) Problem list: All Problems HTN (hypertension) / SNOMED CT 4704307826 / Confirmed Chronic obstructive pulmonary disease / SNOMED CT 18523588 / Confirmed Insomnia / SNOMED CT 050878008 / Confirmed Seasonal allergic rhinitis / SNOMED CT 365957963 / Confirmed Dyslipidemia / SNOMED CT 2343506938 / Confirmed BMI 39.0-39.9,adult / SNOMED CT 276683627 / Confirmed Morbid obesity / SNOMED CT 115662124 / Confirmed GERD (gastroesophageal reflux disease) / SNOMED CT 692250933 / Confirmed Hiatal hernia / SNOMED CT 127921304 / Confirmed EDWIN (obstructive sleep apnea) / SNOMED CT 533731440 / Confirmed Lower extremity edema / SNOMED CT 697078968 / Confirmed TIA (transient ischemic attack) / SNOMED CT 748341948 / Confirmed Screening for malignant neoplasm of colon / SNOMED CT 705724396 / Confirmed Dysphagia / SNOMED CT 11034135 / Confirmed Histories Past Medical History: Resolved Hernia (365521058): Resolved. Sleep apnea (907277220): Resolved. Family History: Father Alcoholism Primary malignant neoplasm of lung COPD Mother Cardiac arrest Alzheimer's disease Procedure history: Colonoscopy ([id number]) on 10/13/2023 at 73 Years. ORIF - Open reduction of fracture of ankle with internal fixation ([id number]). Meniscal repair (740163986). Tonsillectomy (322133237). Hand tendon repaired (660852816). Social History Social & Psychosocial Habits Alcohol 02/26/2024 Frequency: 1-2 times per year Substance Abuse Comment: denies - 03/03/2021 07:19 - Carolyn Stewart RN 02/26/2024 Risk Assessment: Denies Substance Abuse Tobacco 02/26/2024 Tobacco Use: Former smoker, quit more Smokeless tobacco use: Never Type: Cigarettes 02/26/2024 Tobacco Use: Former smoker, quit more . Physical Examination Vital Signs (last 24 hrs) Last Charted Temp Temporal 36.5 DegC (MAR 20:) Heart Rate Monitored 72 bpm (MAR 20:) SBP H 173 mmHg (MAR 20:) DBP 72 mmHg (MAR 20:) Weight 100 kg (MAR 20:) General: in Nad Abdomen: Soft, NTND Impression and Plan Impression: DYSPHAGIA Plan: -EGD [facility] Comment on above: Result Comment: mary anne alicia folder Electronically Signed By: Yovanny OLIVO, Katie Torres\.br\Date and Time Signed: 03/20/24 12:47 EDT 03-20-2024 Hospital Discharge instructions Patient Education 03/20/2024 13:07:59 Duodenitis Duodenitis Duodenitis is when the lining of the first part of your small intestine (duodenum) becomes inflamed. It is often caused by a bacterial infection. You may also have open sores in your intestine called ulcers. Duodenitis may start all of a sudden and last for a short time (acute). It may also develop over time and last for months or years (chronic). What are the causes? The most common cause of this condition is an infection from a type of bacteria called Helicobacter pylori (H. pylori). Other causes include: Long-term use of NSAIDs, such as ibuprofen. Using too much alcohol. An infection of the small intestine caused by the Giardia parasite (giardiasis). Crohn's disease. Certain diseases of the body's defense system (immune system). Certain treatments for cancer. What increases the risk? You may be more likely to develop this condition if: You smoke cigarettes. You drink alcohol. You have a family history of duodenitis. You take NSAIDs. You eat a high-fat diet. What are the signs or symptoms? Symptoms of this condition may include: Epigastric pain. This is a gnawing or burning pain in the upper center of your abdomen. It may get worse when your stomach is empty and may get better after you eat. Cramps in your abdomen. Nausea and vomiting. Bloody vomit. Stools that are bloody, dark, or look like tar. Diarrhea. Weight loss. Feeling tired (fatigue). How is this diagnosed? This condition may be diagnosed based on your medical history and a physical exam. You may also have tests, such as: Blood tests. Stool tests. A test that checks the gases in your breath. An X-ray that is done after you swallow a liquid called barium. The barium makes your digestive tract easier to see. Endoscopy. This is an exam that is done by putting a thin tube with a camera on the end (endoscope) down your throat. A biopsy may be taken. This is when a sample of tissue from your duodenum is removed with the scope and looked at under a microscope to check if the tissue is infected or inflamed. How is this treated? Treatment depends on the cause of your condition. Treatment may include: Antibiotics to treat H. pylori infection. Stopping your intake of NSAIDs. Medicine to reduce the amount of acid your stomach makes. Medicine to treat other conditions, such as Crohn's disease or giardiasis. Surgery to treat severe inflammation that causes scarring or severe bleeding. Follow these instructions at home: Medicines Take dvql-vfq-jvwoflx and prescription medicines only as told by your health care provider. If you were prescribed antibiotics, take them as told by your health care provider. Do not stop using the antibiotic even if you start to feel better. Eating and drinking Eat small, frequent meals. Do not drink alcohol. Drink enough water to keep your urine pale yellow. Follow instructions from your health care provider about what you may eat and drink. You may be asked to avoid: ?Drinks with caffeine. ?Chocolate. ?Peppermint or mint-flavored food or drinks. ?Garlic or onions. ?Spicy foods. ?Posey fruits. ?Tomato-based foods. ?Fatty or fried foods. General instructions Do not use any products that contain nicotine or tobacco. These products include cigarettes, chewing tobacco, and vaping devices, such as e-cigarettes. If you need help quitting, ask your health care provider. Contact a health care provider if: You have a fever. Your symptoms come back, get worse, or do not get better with treatment. You feel dizzy or light-headed. You vomit blood. You have a lot of blood in your stool. You have severe pain in your abdomen. Your abdomen swells and is painful. This information is not intended to replace advice given to you by your health care provider. Make sure you discuss any questions you have with your health care provider. Document Revised: 01/09/2023 Document Reviewed: 01/09/2023 [employer] Patient Education 2023 [employer]. 03/20/2024 13:07:56 Gastritis, Adult, Xozh-qk-Ryuu Gastritis, Adult Gastritis is irritation and swelling (inflammation) of the stomach. There are two kinds of gastritis: Acute gastritis. This kind develops quickly. Chronic gastritis. This kind is much more common. It develops slowly and lasts for a long time. It is important to get help for this condition. If you do not get help, your stomach can bleed, and you can get sores (ulcers) in your stomach. What are the causes? This condition may be caused by: Germs that get to your stomach and cause an infection. Drinking too much alcohol. Medicines you are taking. Having too much acid in the stomach. Having a disease of the stomach. Other causes may include: An allergic reaction. Some cancer treatments (radiation). Smoking cigarettes or using products that contain nicotine or tobacco. In some cases, the cause of this condition is not known. What increases the risk? Having a disease of the intestines. Having Crohn's disease. Using aspirin or ibuprofen and other NSAIDs to treat other conditions. Stress. What are the signs or symptoms? Pain in your stomach. A burning feeling in your stomach. Feeling like you may vomit (nauseous). Vomiting or vomiting blood. Feeling too full after you eat. Weight loss. Bad breath. Blood in your poop (stool). In some cases, there are no symptoms. How is this treated? This condition is treated with medicines. The medicines that are used depend on what caused the condition. You may be given: Antibiotic medicine, if your condition was caused by an infection from germs. H2 blockers and similar medicines, if your condition was caused by too much acid in the stomach. Treatment may also include stopping the use of certain medicines, such as aspirin or ibuprofen. Follow these instructions at home: Medicines Take jugg-pfa-vtxizty and prescription medicines only as told by your doctor. If you were prescribed an antibiotic medicine, take it as told by your doctor. Do not stop taking it even if you start to feel better. Alcohol use Do not drink alcohol if: ?Your doctor tells you not to drink. ?You are , may be , or are planning to become . If you drink alcohol: ?Limit your use to: ?0 1 drink a day for women. ?0 2 drinks a day for men. ?Know how much alcohol is in your drink. In the [place] one drink equals one 12 oz bottle of beer (355 mL), one 5 oz glass of wine (148 mL), or one 1 oz glass of hard liquor (44 mL). General instructions Eat small meals often, instead of large meals. Avoid foods and drinks that make you feel worse. Drink enough fluid to keep your pee (urine) pale yellow. Talk with your doctor about ways to manage stress. You can exercise or do deep breathing, meditation, or yoga. Do not smoke or use any products that contain nicotine or tobacco. If you need help quitting, ask your doctor. Keep all follow-up visits. Contact a doctor if: Your symptoms get worse. Your stomach pain gets worse. Your symptoms go away and then come back. You have a fever. Get help right away if: You vomit blood or something that looks like coffee grounds. You have black or dark red poop. You throw up any time you try to drink fluids. These symptoms may be an emergency. Get help right away. Call your local emergency services (911 in the [place] Do not wait to see if the symptoms will go away. Do not drive yourself to the hospital. Summary Gastritis is irritation and swelling (inflammation) of the stomach. You must get help for this condition. If you do not get help, your stomach can bleed, and you can get sores (ulcers) in your stomach. You can be treated with medicines for germs or medicines to block too much acid in your stomach. This information is not intended to replace advice given to you by your health care provider. Make sure you discuss any questions you have with your health care provider. Document Revised: 10/30/2021 Document Reviewed: 10/30/2021 [employer] Patient Education 2023 [employer]. 03/20/2024 13:07:48 Hiatal Hernia Hiatal Hernia A hiatal hernia occurs when part of the stomach slides above the muscle that separates the abdomen from the chest (diaphragm). A person can be born with a hiatal hernia (congenital), or it may develop over time. In almost all cases of hiatal hernia, only the top part of the stomach pushes through the diaphragm. Many people have a hiatal hernia with no symptoms. The larger the hernia, the more likely it is that you will have symptoms. In some cases, a hiatal hernia allows stomach acid to flow back into the tube that carries food from your mouth to your stomach (esophagus). This may cause heartburn symptoms. The development of heartburn symptoms may mean that you have a condition called gastroesophageal reflux disease (GERD). What are the causes? This condition is caused by a weakness in the opening (hiatus) where the esophagus passes through the diaphragm to attach to the upper part of the stomach. A person may be born with a weakness in the hiatus, or a weakness can develop over time. What increases the risk? This condition is more likely to develop in: Older people. Age is a major risk factor for a hiatal hernia, especially if you are over the age of 50. women. People who are overweight. People who have frequent constipation. What are the signs or symptoms? Symptoms of this condition usually develop in the form of GERD symptoms. Symptoms include: Heartburn. Upset stomach (indigestion). Trouble swallowing. Coughing or wheezing. Wheezing is making high-pitched whistling sounds when you breathe. Sore throat. Chest pain. Nausea and vomiting. How is this diagnosed? This condition may be diagnosed during testing for GERD. Tests that may be done include: X-rays of your stomach or chest. An upper gastrointestinal (GI) series. This is an X-ray exam of your GI tract that is taken after you swallow a chalky liquid that shows up clearly on the X-ray. Endoscopy. This is a procedure to look into your stomach using a thin, flexible tube that has a tiny camera and light on the end of it. How is this treated? This condition may be treated by: Dietary and lifestyle changes to help reduce GERD symptoms. Medicines. These may include: ?Quui-ukh-mmownmp antacids. ?Medicines that make your stomach empty more quickly. ?Medicines that block the production of stomach acid (H2 blockers). ?Stronger medicines to reduce stomach acid (proton pump inhibitors). Surgery to repair the hernia, if other treatments are not helping. If you have no symptoms, you may not need treatment. Follow these instructions at home: Lifestyle and activity Do not use any products that contain nicotine or tobacco. These products include cigarettes, chewing tobacco, and vaping devices, such as e-cigarettes. If you need help quitting, ask your health care provider. Try to achieve and maintain a healthy body weight. Avoid putting pressure on your abdomen. Anything that puts pressure on your abdomen increases the amount of acid that may be pushed up into your esophagus. ?Avoid bending over, especially after eating. ?Raise the head of your bed by putting blocks under the legs. This keeps your head and esophagus higher than your stomach. ?Do not wear tight clothing around your chest or stomach. ?Try not to strain when having a bowel movement, when urinating, or when lifting heavy objects. Eating and drinking Avoid foods that can worsen GERD symptoms. These may include: ?Fatty foods, like fried foods. ?Posey fruits, like oranges or lemon. ?Other foods and drinks that contain acid, like orange juice or tomatoes. ?Spicy food. ?Chocolate. Eat frequent small meals instead of three large meals a day. This helps prevent your stomach from getting too full. ?Eat slowly. ?Do not lie down right after eating. ?Do not eat 1 2 hours before bed. Do not drink beverages with caffeine. These include cola, coffee, cocoa, and tea. Do not drink alcohol. General instructions Take mpqp-rfj-eqgjfrq and prescription medicines only as told by your health care provider. Keep all follow-up visits. Your health care provider will want to check that any new prescribed medicines are helping your symptoms. Contact a health care provider if: Your symptoms are not controlled with medicines or lifestyle changes. You are having trouble swallowing. You have coughing or wheezing that will not go away. Your pain is getting worse. Your pain spreads to your arms, neck, jaw, teeth, or back. You feel nauseous or you vomit. Get help right away if: You have shortness of breath. You vomit blood. You have bright red blood in your stools. You have black, tarry stools. These symptoms may be an emergency. Get help right away. Call 911. Do not wait to see if the symptoms will go away. Do not drive yourself to the hospital. Summary A hiatal hernia occurs when part of the stomach slides above the muscle that separates the abdomen from the chest. A person may be born with a weakness in the hiatus, or a weakness can develop over time. Symptoms of a hiatal hernia may include heartburn, trouble swallowing, or sore throat. Management of a hiatal hernia includes eating frequent small meals instead of three large meals a day. Get help right away if you vomit blood, have bright red blood in your stools, or have black, tarry stools. This information is not intended to replace advice given to you by your health care provider. Make sure you discuss any questions you have with your health care provider. Document Revised: 08/23/2022 Document Reviewed: 08/23/2022 [employer] Patient Education 2023 [employer]. 03/20/2024 13:07:46 Endoscopy, Care After Procedure [facility] ([facility]) Endoscopy Care After Procedure Please read the instructions outlined below and refer to this sheet in the next few weeks. These discharge instructions provide you with general information on caring for yourself after you leave the hospital. Your doctor may also give you specific instructions. While your treatment has been planned according to the most current medical practices available, unavoidable complications occasionally occur. If you have any problems or questions after discharge, please call your doctor. ACTIVITY You may resume your regular activity but move at a slower pace for the next 24 hours. Take frequent rest periods for the next 24 hours. Walking will help expel (get rid of) the air and reduce the bloated feeling in your abdomen. No driving for 24 hours (because of the anesthesia (medicine) used during the test). You may shower. Do not sign any important legal documents or operate any machinery for 24 hours (because of the anesthesia used during the test). NUTRITION Drink plenty of fluids. You may resume your normal diet. Begin with a light meal and progress to your normal diet. Avoid alcoholic beverages for 24 hours or as instructed by your caregiver. MEDICATIONS You may resume your normal medications unless your caregiver tells you otherwise. WHAT YOU CAN EXPECT TODAY You may experience abdominal discomfort such as a feeling of fullness or gas pains. FOLLOW-UP Your doctor will discuss the results of your test with you. SEEK IMMEDIATE MEDICAL ATTENTION IF ANY OF THE FOLLOWING OCCUR: Excessive nausea (feeling sick to your stomach) and/or vomiting. Severe abdominal pain and distention (swelling). Trouble swallowing. Temperature over 100 F (37.8 C). Rectal bleeding or vomiting of blood. Document Released: 02/07/2005 Document Re-Released: 12/18/2006 [employer]Care Patient Information 2009 [employer]. Follow Up Care 02/26/2024 09:52:05 With:Yovanny OLIVO, SENAIT Sifuentes, [facility] Address: When: Unknown Comments:Call for any problems. Office will call to schedule follow up appointment [facility] 03-20-2024 Evaluation + Plan note Future Scheduled TestsXR Esophagus 03/20/24 [facility] 03-20-2024 Note Patient Education - Text Endoscopy Care After Procedure Please read the instructions outlined below and refer to this sheet in the next few weeks. These discharge instructions provide you with general information on caring for yourself after you leave the hospital. Your doctor may also give you specific instructions. While your treatment has been planned according to the most current medical practices available, unavoidable complications occasionally occur. If you have any problems or questions after discharge, please call your doctor. ACTIVITY ? You may resume your regular activity but move at a slower pace for the next 24 hours. ? Take frequent rest periods for the next 24 hours. ? Walking will help expel (get rid of) the air and reduce the bloated feeling in your abdomen. ? No driving for 24 hours (because of the anesthesia (medicine) used during the test). ? You may shower. ? Do not sign any important legal documents or operate any machinery for 24 hours (because of the anesthesia used during the test). NUTRITION ? Drink plenty of fluids. ? You may resume your normal diet. ? Begin with a light meal and progress to your normal diet. ? Avoid alcoholic beverages for 24 hours or as instructed by your caregiver. MEDICATIONS ? You may resume your normal medications unless your caregiver tells you otherwise. WHAT YOU CAN EXPECT TODAY ? You may experience abdominal discomfort such as a feeling of fullness or ?gas? pains. FOLLOW-UP ? Your doctor will discuss the results of your test with you. seek immediate medical attention if any of the following occur: ? Excessive nausea (feeling sick to your stomach) and/or vomiting. ? Severe abdominal pain and distention (swelling). ? Trouble swallowing. ? Temperature over 100 F (37.8? C). ? Rectal bleeding or vomiting of blood. Document Released: 02/07/2005 Document Re-Released: 12/18/2006 ExitCare? Patient Information ?2009 [employer]. Gastroenterology Hiatal Hernia A hiatal hernia occurs when part of the stomach slides above the muscle that separates the abdomen from the chest (diaphragm). A person can be born with a hiatal hernia (congenital), or it may develop over time. In almost all cases of hiatal hernia, only the top part of the stomach pushes through the diaphragm. Many people have a hiatal hernia with no symptoms. The larger the hernia, the more likely it is that you will have symptoms. In some cases, a hiatal hernia allows stomach acid to flow back into the tube that carries food from your mouth to your stomach (esophagus). This may cause heartburn symptoms. The development of heartburn symptoms may mean that you have a condition called gastroesophageal reflux disease (GERD). What are the causes? This condition is caused by a weakness in the opening (hiatus) where the esophagus passes through the diaphragm to attach to the upper part of the stomach. A person may be born with a weakness in the hiatus, or a weakness can develop over time. What increases the risk? This condition is more likely to develop in: ? Older people. Age is a major risk factor for a hiatal hernia, especially if you are over the age of 50. ? women. ? People who are overweight. ? People who have frequent constipation. What are the signs or symptoms? Symptoms of this condition usually develop in the form of GERD symptoms. Symptoms include: ? Heartburn. ? Upset stomach (indigestion). ? Trouble swallowing. ? Coughing or wheezing. Wheezing is making high-pitched whistling sounds when you breathe. ? Sore throat. ? Chest pain. ? Nausea and vomiting. How is this diagnosed? This condition may be diagnosed during testing for GERD. Tests that may be done include: ? X-rays of your stomach or chest. ? An upper gastrointestinal (GI) series. This is an X-ray exam of your GI tract that is taken after you swallow a chalky liquid that shows up clearly on the X-ray. ? Endoscopy. This is a procedure to look into your stomach using a thin, flexible tube that has a tiny camera and light on the end of it. How is this treated? This condition may be treated by: ? Dietary and lifestyle changes to help reduce GERD symptoms. ? Medicines. These may include: ? Thjk-eok-gvesuny antacids. ? Medicines that make your stomach empty more quickly. ? Medicines that block the production of stomach acid (H2 blockers). ? Stronger medicines to reduce stomach acid (proton pump inhibitors). ? Surgery to repair the hernia, if other treatments are not helping. If you have no symptoms, you may not need treatment. Follow these instructions at home: Lifestyle and activity ? Do not use any products that contain nicotine or tobacco. These products include cigarettes, chewing tobacco, and vaping devices, such as e-cigarettes. If you need help quitting, ask your health care provider. ? Try to achieve and maintain a healthy body weight. ? Avoid putting pressu (more content not included)... [facility] 03-20-2024 Note Endoscopic Procedure Report - Other Patient: SHEY BOSS Age: 73 years Sex: Female : 1950 Associated Diagnoses: None Author: Katie Hairston MD Pre-Procedure Procedure Date 03/20/2024 12:54:00 . Procedure Type: Esophagogastroduodenoscopy with biopsy. Procedure provider Performed by Yovanny OLIVO, Katie Torres. Current history and physical Documented on chart. Informed Consent After discussing the rationale, risks and benefits, and alternatives to this procedure, the patient provided signed consent for the procedure. Pre-procedure diagnosis: DYSPHAGIA. Medications Anticoagulant/antiplatelet None. ASA Classification: Class III. . Monitoring: See anesthesia record. . Procedure The procedure was performed in the hospital. See anesthesia record for sedation given during procedure. The patient was positioned starting in the left lateral decubitus position and with safety measures. Endoscope type used was an adult-size, introduced orally, advanced to the 3rd portion of the duodenum. No difficulty was encountered during the procedure. Views were excellent. The patient tolerated the procedure well. Findings 1. Esophageal landmarks identified, tortuous esophagus noted, no stricture noted 2. Large hiatal hernia suspect type III noted 3. Minimal patchy erythema in the antrum of the stomach, biopsied to rule out H. pylori 4. Minimal patchy nonspecific erythema in the duodenal bulb, otherwise normal examined duodenum Images Procedure images: Rec1_hd_video___[id number] pg Rec1_hd_video____[id number] pg Rec1_hd_video____[id number] pg Rec1_hd_video____[id number] pg Rec1_hd_video____[id number] pg Rec1_hd_video____[id number] pg . Post-Procedure Complications: none. Estimated blood loss: minimal. Specimens: sent to pathology. Devices/ implants: none left in place. Impression and Plan 1. Esophageal landmarks identified, tortuous esophagus noted, no stricture noted 2. Large hiatal hernia suspect type III noted 3. Minimal patchy erythema in the antrum of the stomach, biopsied to rule out H. pylori 4. Minimal patchy nonspecific erythema in the duodenal bulb, otherwise normal examined duodenum Recommendations: -Resume previous diet -Resume home medications -Await pathology results, follow in GI clinic in 1-2 after discharge -Obtain outpatient esophagram also before follow-up in clinic to better delineate the anatomy and discuss if surgery referral is indicated, will be ordered [facility] Comment on above: Result Comment: Elec tronically Signed By: Yovanny OLIVO, Katie Torres\.br\Date and Time Signed: 03/20/24 12:58 EDT Other Comment: Samreen dueñas Attachment - attachment storage system not supported [id number] Can be viewed in source systemMissing Attachment - attachment storage system not supported [id number] Can be viewed in source systemMissing Attachment - attachment storage system not supported [id number] Can be viewed in source systemMissing Attachment - attachment storage system not supported [id number] Can be viewed in source systemMissing Attachment - attachment storage system not supported [id number] Can be viewed in source systemMissing Attachment - attachment storage system not supported [id number] Can be viewed in source system 03-20-2024 Note Endoscopic Procedure Report - Other Patient: SHEY BOSS Age: 73 years Sex: Female : 1950 Associated Diagnoses: None Author: Yovanny OLIVO, Katie Torres Preoperative Information Indication for procedure and diagnosis: DYSPHAGIA Chief Complaint as above Review of Systems All systems reviewed, negative except as mentioned above Health Status Current medications: (Selected) Inpatient Medications Ordered Lactated Ringers IV Marlin 1000 mL 1,000 mL: 1,000 mL, IV, 100 mL/hr, Routine, Start date 03/20/24 12:41:00 EDT, 10 hour(s), Total volume (mL): 1,000, 100 kg, 2.12, m2 Sodium Chloride 0.9% IV Marlin 1000 mL 1,000 mL: 1,000 mL, IV, 20 mL/hr, Routine, Start date 03/20/24 6:54:00 EDT, 50 hour(s), Total volume (mL): 1,000, 100 kg, 2.12, m2 Documented Medications Documented Calcium: Calcium, 1 tab, Oral, Daily Flonase 0.05 mg/inh Vina: 2 spray(s), Nasal, Daily, Refill(s) 0, Dry nasal passages One A Day Women's Complete: Oral, Daily, Refill(s) 0, Prophylaxis Pantoprazole [address] Tab: 40 mg = 1 tab(s), Oral, Daily, Refills(s) 0, Control of stomach acid Vitamin D3 1000 intl units (25 mcg) Tab: 25 mcg = 1 tab(s), Oral, Daily, Refills(s) 0, Prophylaxis albuterol 0.083% Inh Marlin 3 mL: Refill(s) 0, 150 mL, 0 Refill(s), INHALE 3 ML(2.5 MG) BY NEBULIZER EVERY 4 HOURS NEEDED FOR SHORTNESS OF BREATH OR WHEEZING aspirin 81 mg Oral EC Tab: 81 mg = 1 tab(s), Oral, Daily, Refills(s) 0, Prophylaxis atorvastatin 40 mg Tab: 40 mg = 1 tab(s), Oral, Daily, Refills(s) 0, High cholesterol donepezil 5 mg Tab: 30 EA, 0 Refill(s), TAKE 1 TABLET BY MOUTH AT BEDTIME, Refills(s) 0 famotidine 40 mg Tab: 40 mg = 1 tab(s), Oral, Once a day (at bedtime), Refills(s) 0, Control of stomach acid losartan 25 mg Tab: 25 mg = 1 tab(s), Oral, Daily, Refills(s) 0, High blood pressure vitamin E: Oral, Daily, Refills(s) 0, Prophylaxis zolpidem 12.5 mg oral ER Tab: 12.5 mg = 1 tab(s), Oral, Once a day (at bedtime), PRN for sleep, Refills(s) 0, Home Medications (13) Active albuterol 0.083% Inh Marlin 3 mL aspirin 81 mg Oral EC Tab 81 mg = 1 tab(s), Oral, Daily atorvastatin 40 mg Tab 40 mg = 1 tab(s), Oral, Daily Calcium 1 tab, Oral, Daily donepezil 5 mg Tab famotidine 40 mg Tab 40 mg = 1 tab(s), Oral, Once a day (at bedtime) Flonase 0.05 mg/inh Vina 2 spray(s), Nasal, Daily losartan 25 mg Tab 25 mg = 1 tab(s), Oral, Daily One A Day Women's Complete , Oral, Daily Pantoprazole [address] Tab 40 mg = 1 tab(s), Oral, Daily Vitamin D3 1000 intl units (25 mcg) Tab 25 mcg = 1 tab(s), Oral, Daily vitamin E , Oral, Daily zolpidem 12.5 mg oral ER Tab 12.5 mg = 1 tab(s), PRN, Oral, Once a day (at bedtime) Problem list: All Problems HTN (hypertension) / SNOMED CT 3307618928 / Confirmed Chronic obstructive pulmonary disease / SNOMED CT 21219957 / Confirmed Insomnia / SNOMED CT 187876851 / Confirmed Seasonal allergic rhinitis / SNOMED CT 993927042 / Confirmed Dyslipidemia / SNOMED CT 6888336441 / Confirmed BMI 39.0-39.9,adult / SNOMED CT 310403127 / Confirmed Morbid obesity / SNOMED CT 896837865 / Confirmed GERD (gastroesophageal reflux disease) / SNOMED CT 938748496 / Confirmed Hiatal hernia / SNOMED CT 609903795 / Confirmed EDWIN (obstructive sleep apnea) / SNOMED CT 422456631 / Confirmed Lower extremity edema / SNOMED CT 950270208 / Confirmed TIA (transient ischemic attack) / SNOMED CT 519310714 / Confirmed Screening for malignant neoplasm of colon / SNOMED CT 398723277 / Confirmed Dysphagia / SNOMED CT 69835672 / Confirmed Histories Past Medical History: Resolved Hernia (533380220): Resolved. Sleep apnea (955151063): Resolved. Family History: Father Alcoholism Primary malignant neoplasm of lung COPD Mother Cardiac arrest Alzheimer's disease Procedure history: Colonoscopy (719412511) on 10/13/2023 at 73 Years. ORIF - Open reduction of fracture of ankle with internal fixation (090370400052977). Meniscal repair (981340065). Tonsillectomy (287248298). Hand tendon repaired (123262726). Social History Social & Psychosocial Habits Alcohol 02/26/2024 Frequency: 1-2 times per year Substance Abuse Comment: denies - 03/03/2021 07:19 - Carolyn Stewart RN 02/26/2024 Risk Assessment: Denies Substance Abuse Tobacco 02/26/2024 Tobacco Use: Former smoker, quit more Smokeless tobacco use: Never Type: Cigarettes 02/26/2024 Tobacco Use: Former smoker, quit more . Physical Examination Vital Signs (last 24 hrs) Last Charted Temp Temporal 36.5 DegC (MAR 20 11:14) Heart Rate Monitored 72 bpm (MAR 20:) SBP H 173 mmHg (MAR 20:14) DBP 72 mmHg (MAR 20:14) Weight 100 kg (MAR 20 11:14) General: in Nad Abdomen: Soft, NTND Impression and Plan Impression: DYSPHAGIA Plan: -EGD [facility] Comment on above: Result Comment: Elec tronically Signed By: Yovanny OLIVO, Katie Torres\.br\Date and Time Signed: 03/20/24 12:47 EDT 10-16-2023 Note [id number] 85#1.00TIFF [facility] 10-13-2023 Evaluation + Plan note Extrac clarke from: Title:ANES Post-operative Note - General Author: Shaji Bethea Jr., DO Date:10/13/23 Plan Transfer/Discharge: Transfer/Discharge Discharge when meets criteria ( From PACU to Ambulatory Surgery Unit, and To home ). Extracted from: Title:ANES Pre-operative Note - Endo Author:Shaji Mendoza Jr., DO Date:10/13/23 Plan [place] [employer]hesi[employer] (ASA) physical status classification: Class III. Anesthetic Preoperative Plan: Anesthesia General, and -TIVA. [facility]04-05-2024 Hospital Discharge instructions Patient Education 10/13/2023 09:31:42 Colonoscopy, Care After Surgery Salam (CUSTOM) Colonoscopy Care After Surgery Please read the instructions outlined below and refer to this sheet in the next few weeks. These discharge instructions provide you with general information on caring for yourself after you leave thespital. Your doctor may also give you specific instructions. While your treatment has been planned according to the most current medical practices available, unavoidable complications occasionally occur. If you have any problems or questions after discharge, please call your doctor. ACTIVITY You may resume your regular activity, but move at a slower pace for the next 24 hours. Take frequent rest periods for the next 24 hours. Walking will help get rid of the air and reduce the bloated feeling in your abdomen (belly). No driving for 24 hours (because of the anesthesia (medicine) used during the test). You may shower. Do not sign any important legal documents or operate any machinery for 24 hours (because of the anesthesia used during the test). NUTRITION Drink plenty of fluids. You may resume your normal diet as instructed by your doctor. Begin with a light meal and progress to your normal diet. Heavy or fried foods are harder to digestand may make you feel nauseated (sick to your stomach). Avoid alcoholic beverages for 24 hours or as instructed. MEDICATIONS You may resume your normal medications unless your doctor tells you otherwise. WHAT YOU CAN EXPECT TODAY Some feelings of bloating in the abdomen. Passage of more gas than usual. Spotting of blood in your stool or on the toilet paper. FOLLOW-UP Your doctor will discuss the results of your test with you. SEEK IMMEDIATE MEDICAL ATTENTION IF: There is more than a spotting of blood in your stool. There is abdominal distention (your abdomen is swollen). There is vomiting. You have a temperature over 101.5 F. There is abdominal pain or discomfort that is severe or gets worse throughout the day. Follow Up Care 09/12/2023 10:17:58 With:Pa WEBB Address: [address], [address] [place] [phone] (1) When: only if needed [facility]04-05-2024 NotePatient: SHEY BOSS Age: 73 years Sex: Female : 1950 Associated Diagnoses: None Author: Pa WEBB MD Subjective no changes to [facility]FC[facility] HospitalComment on above:Result Comment: Electronically Signed By: Pa WEBB MD\.br\Date and Time Signed: 10/13/23 09:45 [id number] NoteChief Complaint consultation for colonoscopy [facility] Staff 72 year old female presents on consultation from Dr. Jack for screening colonoscopy. Denies abdominal or rectal pain. No rectal bleeding or change in bowel habits. Denies nausea or vomiting. No unexplained weight loss. Never had colonoscopy in the past. No known family history of colon cancer. History of Present Illness 72 yo female with h/o COPD, htn, morbid obesity, hyperlipidemia, TIA, EDWIN, referred for colorectal screening; denies change in bms or blood in stools; no abdominal complaints; on baby asa daily, no NSAID use, no SBE prophylaxis; no abdominal operations or previous colonoscopy; no fmhx of GI malignancy or IBD; no tobacco use, former smoker. Review of Systems PHQ Score Initial Depression Screen Score: 0 SCORE ROS - Provider Constitutional: no fever, no sweats, no weight loss. Eyes: no glasses, no blurred vision, no visual loss. ENMT: no dentures, no hoarseness, no swallowing difficulties, no hearing loss, no ear infection(s),no nose bleeds. Cardiovascular: normal blood pressure, no chest pain, regular heartbeat, no heart murmur. Respiratory: no shortness of breath, no cough, no asthma, no wheezing. Gastrointestinal: no nausea, no vomiting, no diarrhea, no constipation, no blood in stool, no change in bowel habits, no abdominal pain, no hepatitis. Genitourinary: no kidney stones, no urine infection, no dysuria. Musculoskeletal: no pain, no weakness. Skin: no changing moles, no rash, no skin lumps. Neurologic: no seizures, no epilepsy, no headache. Psychiatric: no emotional or psychiatric problem. Heme/Lymph: no bleeding problems, no anemia, no blood clots, no transfusions. Allergy/Immunologic: no swollen lymph nodes/glands, no IV drug abuse. Other: Additional ROS info: Except as noted in the above Review of Systems and in the History of Present Illness, all other systems have been reviewed and are negative or noncontributory. Physical Exam Vitals & Measurements HR: 92(Peripheral) RR: 20 BP: 160/88 HT: 64 in HT: 162.5 cm WT: 103.5 kg WT: 227.7 lb BMI: 39.2 HEENT: normal conjunctiva, sclera clear, no scleral icterus, EOM intact, PERRLA, oral mucosa moist without lesions. Neck: trachea midline, no mass, symmetric, no thyromegaly or nodules, no adenopathy Respiratory: lungs CTA, respirations non labored. Cardiovascular: regular rate and rhythm, no murmur, no pedal edema or varicosities. Gastrointestinal: obese, soft, non distended, no tenderness, no masses, no palpable hernias, diastasis recti no, no hepatosplenomegaly; normal bs Lymphatic: no cervical adenopathy, nosupraclavicular adenopathy. Musculoskeletal: normal gait, digits and nails without infection, nodes, cyanosis, clubbing. Skin: no rashes, no lesions, no ulcers, no subcutaneous nodules, induration. Psychiatric/Neuro: oriented to time, place, person, judgement normal, affect appropriate for age, insight intact, no focal deficits. Tests: review of old records completed , Discussed surgical options, risks, and possible complications with patient. Assessment/Plan 1. Screening for malignant neoplasm of colon (Z12.11: Encounter for screening for malignant neoplasm of colon) plan colonoscopy under anesthesia, informed consent obtained. 2. BMI 39.0-39.9,adult (Z68.39: Body mass index [BMI] 39.0-39.9, adult) recommend diet and exercise. Follow-up No qualifying data available Problem List/Past Medical History Ongoing BMI 39.0-39.9,adult Chronic obstructive pulmonary disease Dyslipidemia GERD (gastroesophageal reflux disease) Hiatal hernia HTN (hypertension) Insomnia Lower extremity edema Morbid obesity EDWIN (obstructive sleep apnea) Screening for malignant neoplasm of colon Seasonal allergic rhinitis TIA (transient ischemic attack) Historical Hernia Sleep apnea Procedure/Surgical History Hand tendon repaired, Meniscal repair, ORIF - Open reduction of fracture of ankle with internal fixation, Tonsillectomy. Medications aspirin 81 mg Oral EC Tab, 81 mg= 1 tab(s), Oral, Daily atorvastatin 40 mg Tab, 40 mg= 1 tab(s), Oral, Daily famotidine 40 mg Tab, 40 mg= 1 tab(s), Oral, Once a day (at bedtime) Flonase 0.05 mg/inh Vina, 2 spray(s), Nasal, Daily losartan 25 mg Tab, 25 mg= 1 tab(s), Oral, Daily One A Day Women's Complete, Oral, Daily Pantoprazole [address] Tab, 40 mg= 1 tab(s), Oral, Daily Spiriva HandiHaler 18 mcg inhalation capsule, 18 mcg= 1 cap(s), Inhalation, Daily Vitamin D3 1000 intl units (25 mcg) Tab, 25 mcg= 1 tab(s), Oral, Daily zolpidem 12.5 mg oral ER Tab, 12.5 mg= 1 tab(s), Oral, Once a day (at bedtime), PRN Allergies No Known Allergies Social History Alcohol 1-2 times per year, 03/03/2021 Substance Abuse - Denies Substance Abuse, 09/12/2023 Tobacco Former smoker, quit more than 30 days ago Tobacco Use:. Never Smokeless Tobacco Use:. Cigarettes, 09/12/2023 Family History Alcoholism: Father. Alzheimer's di (more content not included)...[facility]Result Comment: Electronically Signed By: TRACEY OLIVO, Pa Lynn\Date and Time Signed: 09/12/23 10:16 [id number] History of Present illness Narrative* Latrell Jack MD - 08/11/2023 10:23 AM ESTAssociated Problem(s): Seasonal allergic rhinitis due to pollen Increased symptoms and use flonase daily. * Latrell Jack MD - 08/11/2023 10:22 AM ESTAssociated Problem(s): Primary osteoarthritis of both knees Pain stable and use OTC PRN. * Latrell Jack MD - 08/11/2023 10:22 AM ESTAssociated Problem(s): Primary insomnia Sleeping well with ambien and continue. * Latrell Jack MD - 08/11/2023 10:22 AM ESTAssociated Problem(s): Hiatal hernia with gastroesophageal reflux disease without esophagitis Symptoms controlled with protonix and continue. * Latrell Jack MD - 08/11/2023 10:22 AM ESTAssociated Problem(s): Essential hypertension, benign (CMS/HCC) BP controlled and monitor PRN. * Latrell Jack MD - 08/11/2023 10:22 AM ESTAssociated Problem(s): COPD (chronic obstructive pulmonary disease) (CMS/HCC) Symptoms stable and continue spiriva. Use albuterol PRN. * Latrell Jack MD - 08/11/2023 9:45 AM EST Subjective Patient ID: Shey Boss is a 72 y.o. female who presents for Follow-up (6 m). F/u HTN, COPD, insomnia, OA knees, GERD, and EDWIN. Checking BP PRN and typically controlled. BP okaytoday. Taking medication daily and tolerating without side effects. COPD unchanged. Taking spiriva daily and using albuterol several times a day. SOB and fatigue with exertion. Occasional cough but no sputum. Mild SOB to go up or down stairs. Sleeping well with ambien. Able to fall asleep and stay asleep. Wakes up rested in am. OA knee stable. Frequent popping, clicking, and grinding. At times unsteady and give out. Using OTC PRN. GERD controlled with protonix. Denies epigastric pain or burningand not waking up with symptoms. EDWIN controlled with CPAP. Using machine nightly for entire time asleep, typically 6- 8 hours. Sleeping well and not waking up as much during night. Rested in am and not as tired during day. C/o lightheaded and off balance for several weeks. Symptoms when up and moving. Ears feel full. Increased congestion and postnasal drip. Not on flonase regularly. Review of Systems Respiratory: Negative for cough, shortness of breath and wheezing. Cardiovascular: Negative for chest pain and palpitations. Gastrointestinal: Negative for abdominal pain, diarrhea, nausea and vomiting. Genitourinary: Negative for dysuria. Objective Physical Exam Constitutional: General: She is not in acute distress. Appearance: Normal appearance. HENT: Head: Normocephalic. Right Ear: Tympanic membrane normal. Left Ear: Tympanic membrane normal. Eyes: Extraocular Movements: Extraocular movements intact. Pupils: Pupils are equal, round, and reactive to light. Cardiovascular: Rate and Rhythm: Normal rate and regular rhythm. Heart sounds: No murmur heard. No friction rub. No gallop. Pulmonary: Effort: Pulmonary effort is normal. Breath sounds: Normal breath sounds. No wheezing, rhonchi or rales. Abdominal: General: Bowel sounds are normal. There is no distension. Palpations: Abdomen is soft. Tenderness: There is no abdominal tenderness. There is no guarding or rebound. Musculoskeletal: Cervical back: Neck supple. Right lower leg: No edema. Left lower leg: No edema. Neurological: Mental Status: She is alert. Assessment/Plan Problem List Items Addressed This Visit Essential hypertension, benign (CMS/HCC) - Primary BP controlled and monitor PRN. Primary osteoarthritis of both knees Pain stable and use OTC PRN. COPD (chronic obstructive pulmonary disease) (CMS/HCC) Symptoms stable and continue spiriva. Use albuterol PRN. Dyslipidemia (CMS/HCC) Relevant Orders Lipid panel Hiatal hernia with gastroesophageal reflux disease without esophagitis Symptoms controlled with protonix and continue. Primary insomnia Sleeping well with ambien and continue. Encounter for long-term (current) use of medications Relevant Orders Basic metabolic panel CBC and differential Hepatic function panel Morbid obesity due to excess calories (CMS/HCC) Relevant Orders Hemoglobin A1c TSH Seasonal allergic rhinitis due to pollen Increased symptoms and use flonase daily. Other Visit Diagnoses Screening for colon cancer Relevant Orders Ambulatory referral to General Surgery documented in this encounterKindred [id number] NoteEXAMINATION: XR CHEST 1 V HISTORY: SHORTNESS OF BREATH , presurgical evaluation COMPARISON: XR chest 09/02/2021 FINDINGS: LUNGS: No significant pulmonary parenchymal abnormalities. VASCULATURE: No increased pulmonary vasculature. PLEURA: No pneumothorax, effusion, or pleural thickening. CARDIAC: No cardiomegaly or cardiac silhouette abnormality. MEDIASTINUM: No visible mass or adenopathy. BONES: No fracture or visible bone lesion. OTHER: Negative. IMPRESSION: 1. Slightly limited by patient body habitus. No acute cardiopulmonary process. Electronically authenticated by: MEHNAZ SANTIAGO Date: 2021-11-02 16:39[facility]03-04-2022 NotePROCEDURE: XR ANKLE RT MIN 3 VIEWS COMPARISON: 07/29/2021 HISTORY: Closed fracture of right ankle FINDINGS: BONES:Interval removal of internal fixation hardware involving a lateral fibular plate and multiple screws. 2 fragments of screws remain crossing the tibiofibular syndesmosis. Mild to moderate enthesopathic spurring of the calcaneus at the insertion of Achilles tendon and plantar aponeurosis SOFT TISSUES:Bilateral postsurgical swelling, subcutaneous air and skin edilia EFFUSION:None visible. OTHER: Negative. IMPRESSION: Interval removal of internal fixation hardware with expected postsurgical changes Electronically authenticated by: WILLARD ANAND Date: 2021-09-10 09:02[facility]03-04-2022 NotePROCEDURE: XR ANKLE RT 2V COMPARISON: 03/02/2020. HISTORY: Pain FINDINGS: 35 seconds of fluoroscopy. 5 fluoroscopic images Interval removal of internal fixation hardware. Components of 2 fractured screws across the tibiofibular syndesmosis remain on image #5 IMPRESSION: Removal of lateral fibular plate and screws Electronically authenticated by: WILLARD ANAND Date: 2021-09-10 08:30[facility] note Future Appointments Appointment Date:03/20/2024 12:15:00 PM Scheduled Provider: Location:[facility] Surgical Services Appointment Type:Surgery FT [facility] Evaluation note* Diagnosis Essential hypertension, benign (CMS/HCC)- Primary Essential hypertension, benign Chronic obstructive pulmonary disease, unspecified COPD type ([facility]/HCC) Primary insomnia Persistent disorder of initiating or maintaining sleep Primary osteoarthritis of both knees Hiatal hernia with gastroesophageal reflux disease without esophagitis Seasonal allergic rhinitis due to pollen Screening for colon cancer Special screening for malignant neoplasms, colon Morbid obesity due to excess calories ([facility]/HCC) Dyslipidemia ([facility]/HCC) Other and unspecified hyperlipidemia Encounter for long-term (current) use of medications Encounter for long-term (current) use of other medications Body mass index [BMI] 40.0-44.9, adult (Z68.41) documented in this encounter [facility] Narrative No data available for this section [facility] No data available for this section [facility] Progress note No data available for this section [facility] (n[facility]ative)* Consultation (Routine) - Pending Review Specialty Diagnoses / Procedures Referred By Joan junior Referred To Contact General Surgery Diagnoses Screening for colon cancer Procedures MO OFFICE/OUTPATIENT [facility] 60 MINUTES Latrell Jack MD [address] [place] [address] Pa Webb MD [address] [place] [address] Referral ID Status Reason Start Date Expiration Date Visits Requested Visits Authorized [id number] Pending Review Specialty Services Required 08/11/2023 02/07/2024 1 1 [facility] Summary Purpose Family History No Family History Records FoundNo Family History Records Found No data available for this section No data available for this section No data available for this section No Family History Records FoundNo Family History Records FoundNo Family History Records FoundNo Family History Records Found Advance Directives No Advanced Directives Records FoundNo Advanced Directives Records FoundNo Advanced Directives Records FoundNo Advanced Directives Records FoundNo Advanced Directives Records FoundNo Advanced Directives Records Found Hospital Course Note [facility] SURGERY Clinical Discharge Summary PERSON INFORMATION Name SHEY BOSS Age 68 Years 52 Sex FEMALE Language Irish PCP LATRELL JACK Marital Status Single Med Service Ambulatory Surgery Acct# Arrival 02/04/19 11:44:00 Visit Reason SURGERY - RELEASE TRIGGER FINGER LEFT RING FINGER AND E/O CYST LEFT RING FINGER Acuity LOS 012 05:38 Address: [address] [place] [address] Comment: PROVIDER INFORMATION VITALS INFORMATION Vital Sign Triage Latest Temp Oral Temp Temporal Temp Intravascular Temp Axillary Temp Rectal 02 Sat 97 % 100 % Respiratory Rate 16 br/min 16 br/min Peripheral Pulse Rate 68 bpm 60 bpm Apical Heart Rate Blood Pressure 150 mmHg / 80 mmHg 132 mmHg / 85 mmHg Comment: MEDICAL INFORMATION Allergy Info: No known allergies Prescriptions Given: Home Meds Display acetaminophen (acetaminophen 500 mg oral tablet) 1 tab(s) ( 500 mg ), PO, q12hr, PRN: as needed for fever, # 24 tab(s), 0 Refill(s) acetaminophe (more content not included)... Note Patient: SHEY BOSS Age: 68 years Sex: FEMALE : 52 Associated Diagnoses: None Author: Alirio Mcclellan MD Postoperative Information Post Operative Note: Post Anesthesia Care Unit. Anesthetic utilized: Monitored anesthesia care. Health Status Allergies: Allergic Reactions (All) No known allergies Physical Examination VS/Measurements Vital Signs (last 24 hrs) Last Charted Heart Rate Peripheral 64 bpm (FEB 04 12:10) Resp Rate 16 br/min (FEB 04 12:10) SBP 144 mmHg (FEB 04 16:03) DBP 67 mmHg (FEB 04 16:03) SpO2 96 % (FEB 04:05) Pain assessment: Self-reports no pain. General: Alert and oriented, No acute distress. Respiratory: Respirations are non-labored. Cardiovascular: Normal rate, Regular rhythm. Review / Management Condition: Stable. Assessment Anesthetic outcome No anesthetic complications noted. Adequate pain relief. No Complaint of nausea and vomiting. Plan Transfer/ Discharge: Patient can be discharged from PACU when (more content not included)... Procedure Findings Note Patient: SHEY BOSS Age: 68 years Sex: FEMALE : 52 Associated Diagnoses: None Author: Alirio Mcclellan MD Postoperative Information Post Operative Note: Post Anesthesia Care Unit. Anesthetic utilized: Monitored anesthesia care. Health Status Allergies: Allergic Reactions (All) No known allergies Physical Examination VS/Measurements Vital Signs (last 24 hrs) Last Charted Heart Rate Peripheral 64 bpm (FEB 04 12:10) Resp Rate 16 br/min (FEB 04 12:10) SBP 144 mmHg (FEB 04 16:03) DBP 67 mmHg (FEB 04 16:03) SpO2 96 % (FEB 04:05) Pain assessment: Self-reports no pain. General: Alert and oriented, No acute distress. Respiratory: Respirations are non-labored. Cardiovascular: Normal rate, Regular rhythm. Review / Management Condition: Stable. Assessment Anesthetic outcome No anesthetic complications noted. Adequate pain relief. No Complaint of nausea and vomiting. Plan Transfer/ Discharge: Patient can be discharged from PACU when (more content not included)... Additional Source Comments INFORMATION SOURCE (unrecogn ized section and content) DATE CREATED AUTHOR 02/17/2019 [facility] DATE CREATED AUTHOR AUTHOR'S ORGANIZ ATION [facility]/03/2022 [facility] DATE CREATED AUTHOR AUTHOR'S ORGANIZ ATION 03/28/2024 [facility] DATE CREATED AUTHOR AUTHOR'S ORGANIZ ATION 03/28/2024 [facility] DATE CREATED AUTHOR AUTHOR'S ORGANIZ ATION 03/30/2024 [facility] DATE CREATED AUTHOR AUTHOR'S ORGANIZ ATION 04/04/[address] [place] [address] Care Teams (unrecognized sec tion and content) 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 This clinical summary was aggregated from multiple sources. Caution should be exercised in using it in the provision of clinical care. This summary normalizes information from multiple sources, and as a consequence, information in this document may materially change the coding, format and clinical context of patient data. In addition, data may be omitted in some cases. CLINICAL DECISIONS SHOULD BE BASED ON THE PRIMARY CLINICAL RECORDS. [employer] provides no warranty or guarantee of the accuracy or completeness of information in this document.
== END 2024-04-09 09:33 | disposition home or self-care (01) ==
LOC: EC 09:33
PROVIDERS: PCP Family Medicine; Visit Provider Podiatrist Foot & Ankle Surgery
DX: M79.671 Pain in right foot (principal); M19.071 Primary osteoarthritis, right ankle and foot
CPT/HCPCS: 73630

== ENCOUNTER 2024-04-15 13:37 | Outpatient (OUT) | payer MEDICARE, OTHER, SELFPAY ==
--- OUTSIDE RECORDS SUMMARY | 2024-04-15 14:02 | XMS_ITS | CCD ---
Author Organization [facility] Care Team Providers Care Orthopedic Shoes Salesperson Name Role Phone FREDY, DR CHAPARRO Attending [...] Consulting Unavailable AGUBOSIM, COREY Consulting Unavailable NADEGE, AMAR Consulting Unavailable LANGENBERG, ARLEN Consulting Unavailable NADERER, DR LATRELL Flood Admitting Unavailable NADERER, DR LATRELL Flood Attending Unavailable NADEREOrtega, DR LATRELL Flood Primary Care Unavailable Zieber, DR Blue Consulting Unavailable NADEREOrtega, DR LATRELL Flood Consulting Unavailable NADERER, DR LATRELL Flood Admitting Unavailable WEST, DR WILLARD Cárdenas Consulting Unavailable NADERER, DR LATRELL Flood Attending Unavailable NADERER, DR LATRELL Flood Primary Care Unavailable NADERER, DR LATRELL Flood Consulting Unavailable FREDY, DR CHAPARRO Consulting Unavailable CANDICEEREOrtega, DR LATRELL Flood Primary Care Unavailable FREDY, DR CHAPARRO Admitting Unavailable FREDY, DR CHAPARRO Attending Unavailable Guero OLIVO, Latrell Primary Care Provider GUERO, LATRELL Primary Care Physician [phone] Pa MAYER Referring Unavailable NILL, Pa Vivas Attending Unavailable Pa MAYER Admitting Unavailable Katie Hairston Referring Unavaila ble Katie Hairston Attending Unavaila ble Sarmini, Wilson Talal Admitting Unavaila ble Sarmini, Wilson Talal Referring Unavaila ble Sarmini, Wilson Talal Attending Unavaila ble Sarmini, Wilson Talal Admitting Unavaila ble Sarmini, Wilson Talal Attending Unavaila ble Pa MAYER Attending Unavailable GUERO, LATRELL Referring Unavailable GUERO, LATRELL Attending Unavailable LATRELL JACK Attending Unavailable DIOMEDES MATUTE Attending Unavailable GUERO, LATRELL Referring Unavailable JUJU, DIOMEDES Referring Unavailable LUCI TOLLIVER Attending Unavailable Allergies Allergy Classification Reported Allergen(s) Allergy Type Date of Onset Reaction(s) Facility (1 source) Amino Acids Drug Allergy [facility] Repository Medications Current Medications Medication Drug Class(es) [...] dose nasal spray (6 sources) Corticosteroid Start: 024 Flonase 0.05 mg/inh [place] 2 spray(s), Nasal, Daily, Refill(s) 0, Dry [...] 02/26/24 Status: Ordered take 1 capsule by [facility] once daily alpha tocopherol (Vitamin E) 400 [...] MOUTH AT BEDTIME, Refills(s) 0 Start Date: 8/16/24 Status: Ordered One A Day Women's Complete [...] (4 sources) Patient encounter status; Translations: [Other terminal manager (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 therapy] Onset: 4 08-11-2023 Episodic [...] 02-23-2022 Episodic Other aftercare (1 source) Other terminal manager (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 therapy; Translations: [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 (DC) DC:[facility] Microscopic Description Microscopic examination performed unless gross only specified. The use of one or more reagents in the above tests is regulated as an analyte specific reagent (ASR). The test or tests are ordered following initial H&E microscopic examination. The performance characteristics were determined by the Laboratory of [facility]. They have not been cleared or approved by the US Food and Drug Administration. The FDA has determined that such clearance or approval is not necessary. These tests are used for clinical purposes. They should not be regarded as investigational or for research. Appropriate positive and negative controls are performed and are acceptable. Normal [facility] Comment on above: Performed By: #### [id number] #### [facility] [address] [place] [address] XR Esophaguson 03-26-2024 XR Esophagus Exam Date/Time: [...] Anibal Londono MD Transcribed by: NEAL Technologist: JLW Technical Comments Radiation Dose: Ka,r in mGy = 15.80 DAP = 464.17 Normal [facility] Main OR Intraoperative Recor don 03-22-2024 Main OR Intraoperative Record Main OR Intraoperative Record IntraOp Document Type FT Summary Primary Physician: Katie Hairston MD Finalized Date/Time: 03/22/24 14:46:15 Pt. Name: SHEY BOSS /Sex: 1950 Female Med Rec #: [id number] Physician: Katie Hairston MD Financial #: [id number] Pt. Type: O Room/Bed: / Admit/Disch: 03/20/24 [...] Ivory CST, Katie Ferguson MD Role Performed POULTRY SLAUGHTERER Scrub - Primary Surgeon - Primary Time In 03/20/24 12:44:00 03/20/24 12:44:00 03/20/24 12:44:00 Time Out 03/20/24 12:56:00 03/20/24 12:56:00 03/20/24 12:56:00 Procedure EGD(.) EGD(.) EGD(.) Comments Dr. Hairston supervising procedure. Last Modified By: Mynor FORBES, Violette Lopez RN, Essence Lopez RN, Essence Marsh 03/22/24 14:45:45 03/20/24 12:56:36 03/20/24 12:56:36 Entry 4 Case Attendee Essence Lopez RN Role Performed Stave Machine Tender - Primary Time In 03/20/24 12:44:00 Time [...] and tissue Entry 1 Skin Integrity Intact, [place], Warm, & Skin Abnormality No Dry Outcomes [...] Extended Positioning (more content not included)... Normal [facility] Discharge Instructionson Discharge Instructions Discharge Instructions SHEY [...] mg Tab) fluticasone nasal (Flonase 0.05 mg/inh [place]ia) losartan (losartan 25 mg Tab) multivitamin with [...] Unchanged fluticasone nasal (Flonase 0.05 mg/ inh [place]) 2 Sprays Nasal Inhalation Every day Unchanged [...] get better (more content not included)... Normal [facility] Comment on above: Result Comment: Elec tronically Signed By: Kassy Barker I\.maikol\Date and Time Signed: 03/20/24 13:08 EDT Inpatient Patient Summaryon 03-20-2024 Inpatient Patient Summary Inpatient Patient Summary [address] [address] [facility] Clinical Discharge Instructions PERSON INFORMATION Name: SHEY BOSS [facility]#:[id number] PHYSICIANS Admitting Physician: Katie Hairston MD Attending [...] (at bedtime). fluticasone nasal (Flonase 0.05 mg/inh [place]) 2 Sprays Nasal Inhalation every day. losartan [...] bedtime) as needed for sleep. Comment: Normal [facility] Main OR PACU I Recordon 03-10 Main OR PACU I Record Main OR PACU I Record PACU Phase I Document Type FT Summary Primary Physician: Katie Hairston MD Finalized Date/Time: 03/20/24 13:37:02 Pt. Name: SHEY BOSS Tamie/Sex: 1950 Female Med Rec #: [id number] Physician: Katie Hairston MD Financial #: [id number] Pt. Type: O Room/Bed: / Admit/Disch: 03/20/24 [...] By: Kassy Barker I 03/20/24 13:37 Normal [facility] Main OR Preoperative Recordo n 03-20-2024 Main OR Preoperative Record Main OR Preoperative Record Holding Area Document Type FT Summary Primary Physician: Katie Hairston MD Finalized Date/Time: 03/20/24 11:17:32 Pt. Name: SHEY BOSS /Sex: 1950 Female Med Rec #: [id number] Physician: Katie Hairston MD Financial #: [id number] Pt. Type: O Room/Bed: / Admit/Disch: 03/20/24 [...] By: Essence Lopez RN 03/20/24 11:17 Normal [facility] Outpatient Surgery Discharge Instructionon 03-20-2024 Outpatient Surgery Discharge Instruction Outpatient Surgery Discharge Instruction [place] [id number] Patient Discharge Instructions PERSON INFORMATION Name: SHEY BOSS Date of : 1950 Current Date: 03/20/2024 12:58:56 PHYSICIANS Admitting Physician: Katie Hairston MD Discharge Diagnosis: SHEY BOSS has been given [...] to serve you. Thank you for choosing [facility] HERE ARE THE MEDICATION CHANGES THAT [...] (at bedtime). fluticasone nasal (Flonase 0.05 mg/inh [place]) 2 Sprays Nasal Inhalation every day. losartan [...] PATIENT EDUCATION INFORMATION Instructions: Medication Leaflets: Normal [facility] Proceduralon 03-20-2024 Procedural Procedural Patient: SHEY BOSS Age: 73 years Sex: Female : 1950 Associated Diagnoses: None Author: Daquan Schuler MD Postoperative Information Postoperative disposition: Postoperative disposition: To PACU. Optimetrix number: Optimetrix number [id number]. Anesthetic utilized: General. Health Status Allergies: Allergic [...] meets criteria ( To home ). Normal [facility] Procedural Procedural Patient: SHEY BOSS Age: 73 [...] 1 tab, Oral, Daily Flonase 0.05 mg/inh [place]: 2 spray(s), Nasal, Daily, Refill(s) 0, Dry [...] a day (at bedtime) Flonase 0.05 mg/inh [place] 2 spray(s), Nasal, Daily losartan 25 mg [...] All Problems BMI 39.0-39.9,adult / SNOMED CT 279049620 / Confirmed Chronic obstructive pulmonary disease / SNOMED CT 74927225 / Confirmed Dyslipidemia / SNOMED CT 6877440905 / Confirmed Dysphagia / SNOMED CT 49022430 / Confirmed GERD (gastroesophageal reflux disease) / SNOMED CT 822262076 / Confirmed Hiatal hernia / SNOMED CT 871297614 / Confirmed HTN (hypertension) / SNOMED CT 3238858074 / Confirmed Insomnia / SNOMED CT 352953573 / Confirmed Lower extremity edema / SNOMED CT 854006061 / Confirmed Morbid obesity / SNOMED CT 983296614 / Confirmed EDWIN (obstructive sleep apnea) / SNOMED CT 532090842 / Confirmed Screening for malignant neoplasm of colon / SNOMED CT 293560561 / Confirmed Seasonal allergic rhinitis / SNOMED CT 738773964 / Confirmed TIA (transient ischemic attack) / SNOMED CT 207823425 / Confirmed Resolved: At risk for falls / SNOMED CT 803151833 Problem added when Risk for Falls Careplan was initiated. Resolved due to patient discharge. Resolved: Hernia / SNOMED CT 936999928 Resolved: Potential for deficient knowledge of cerebrovascular accident (CVA) / IMO 58784515 problem added based on Stroke Powerplan ordered. Resolved due to patient discharge. Resolved: Sleep apnea / SNOMED CT 687163257, Active Problems (14) BMI 39.0-39.9,adult Chronic obstructive pulmonary disease Dyslipidemia Dysphagia GERD (gastroesophageal reflux disease) Hiatal hernia HTN (hypertension) Insomnia Lower extremity edema Morbid obesity EDWIN (obstructive sleep apnea) Screening for malignant neoplasm of colon Seasonal allergic rhinitis TIA (transient ischemic (more content not included)... Normal [facility] Ambulatory Visit Summaryon 0 02-26-2024 Ambulatory Visit Summary Ambulatory Visit Summary SHEY BOSS :1950 Visit Date:02/26/2024 Ambulatory Visit Instructions Your Diagnosis Dysphagia Hiatal hernia GERD (gastroesophageal reflux disease) Your Care Team Attending Physician - Yovanny OLIVO, Katie Torres Primary Care Physician - LATRELL JACK MD [...] mg Tab) fluticasone nasal (Flonase 0.05 mg/inh [place]) losartan (losartan 25 mg Tab) multivitamin with [...] Unchanged fluticasone nasal (Flonase 0.05 mg/ inh [place]) 2 Sprays Nasal Inhalation Every day Contact [...] she lays down hoarseness Colonoscopy 10/13/23 w/Dr. Mayer: Findings The bowel was normal throughout the [...] or gangrene) reports she had esophagram in [place] no egd in the past declined surgery [...] a day (at bedtime) Flonase 0.05 mg/inh [place], 2 spray(s), Nasal, Daily losartan 25 mg [...] virus vaccine, inactivated 05/03/2022 Recorded SARS-CoV-2 (COVID-19) [id number] 05/03/2022 Recorded influenza virus vaccine, inactivated 04/12/2021 [...] influenza virus vaccine, inactivated 04/16/2015 Recorded Normal [facility] Comment on above: Result Comment: Elec tronically Signed By: Yovanny OLIVO, Katie Torres\.br\Date and Time Signed: 02/26/24 09:38 EDT IntraOperative Documentson 0 10-19-2023 IntraOperative Documents [id number]#1.0 0TIFF [facility] Consenton 10-16-2023 Consent [id number]#1.00 TIFF [facility] Discharge Instructionson Discharge Instructions [id number]#1.00 TIFF [facility] Main OR Intraoperative Recor don 10-16-2023 Main OR Intraoperative Record IntraOp Document Type FT Summary Primary Physician: Pa MAYER MD Finalized Date/Time: 10/16/23 09:46:21 Pt. Name: SHEY BOSS/Sex: 1950 Female Med Rec #: [id number] Physician: TRACEY OLIVO, Pa Vivas Financial #: [id number] Pt. Type: O Room/Bed: / Admit/Disch: 10/13/23 [...] Gross Role Performed Anesthesiologist Surgeon - Primary Stave Machine Tender - Primary School Bus Attendant Time In 10/13/23 08:55:00 10/13/23 08:55:00 10/13/23 08:55:00 Time Out 10/13/23 09:16:00 10/13/23 09:16:00 10/13/23 09:16:00 Procedure COLONOSCOPY(.) COLONOSCOPY(.) COLONOSCOPY(.) Comments DR BETHEA SUPERVISING Last Modified By: Naresh FORDE, Kimberly Infante RN, Kimberly Nicholas RN 10/13/23 09:16:35 10/13/23 09:16:35 10/13/23 09:16:35 Entry [...] No Time Out Valentin Schrader, Given Participants TRACEY OLIVO, Coretta Garrido Micala E, Kimberly Infante RN Time Out [...] COLONOSCOPY Primary Procedure Yes Primary Surgeon Pa MAYER MD Start 10/13/23 08:59:00 Stop 10/13/23 09:12:00 [...] and tissue Entry 1 Skin Integrity Intact, [place], Warm, and Skin Abnormality No Dry Outcomes [...] Infante RN (more content not included)... Normal [facility] Postoperative Documentson Postoperative Documents [id number] TIFF Normal [facility] Reminderson 10-16-2023 Reminders - From: Nhi Aguirre LPN To: N - Clinical; Sent: 10/16/2023 10:15:48 EDT Show up: 09/11/2033 07:00:00 EST Subject: colonoscopy recall Due Date/Time: 10/12/2033 07:00:00 EDT Reminder/Recall Patient due for screening colonoscopy 10/12/2033. Normal [facility] Colonoscopy Procedure Report on 10-13-2023 Colonoscopy Procedure Report Patient: SHEY BOSS Age: 73 years Sex: Female : 1950 Associated Diagnoses: None Author: Pa MAYER MD Pre-Procedure Procedure Date 10/13/2023 09:25:00 . Procedure Type: Colonoscopy. Procedure provider Performed by Pa MAYER MD. Referred by LATRELL JACK MD. Current [...] for screening for malignant neoplasm of rectum ([id number] Z12.12, Discharge, Medical). Course: Progressing as expected. Recommendations: Repeat colonoscopy:: In 10 years. Follow-up:: if problems/questions. Diet:: Regular diet. Medication resumption:: Continue current medications. Return to activities:: After 24 hours. Education and Follow-up: Counseled: Family. [facility] Comment on above: Other Comment: Samreen dueñas Attachment - attachment storage system not supported [id number] Can be viewed in source systemMissing Attachment - attachment storage system not supported [id number] Can be viewed in source systemMissing Attachment - attachment storage system not supported [id number] Can be viewed in source systemMissing Attachment - attachment storage system not supported [id number] Can be viewed in source systemMissing Attachment - attachment storage system not supported 8659505 Can be viewed in source system Consent for Treatmenton Consent for Treatment [id number] IFF [facility] Discharge Instructionson Discharge Instructions SHEY BOSS :1950 Visit Date:10/13/2023 Inpatient Discharge Instructions Your Care Team Admitting Physician - Pa MAYER MD Referring Physician - Pa MAYER MD Reason for Your Visit SCREENING Your Diagnosis Encounter for colorectal cancer screening Encounter for screening for malignant neoplasm of rectum This Is Your Medications List aspirin (aspirin 81 mg Oral EC Tab) atorvastatin (atorvastatin 40 mg Tab) cholecalciferol (Vitamin D3 1000 intl units (25 mcg) Tab) famotidine (famotidine 40 mg Tab) fluticasone nasal (Flonase 0.05 mg/inh [place]) losartan (losartan 25 mg Tab) multivitamin with [...] Appointments after Discharge Follow Up with Pa MAYER When: Only if needed Where: [place], [facility] [address] [address]- Business (1) Medications What How Much When [...] Unchanged fluticasone nasal (Flonase 0.05 mg/ inh [place]) 2 Sprays Nasal Inhalation Every day Unchanged [...] as instru (more content not included)... Normal [facility] Comment on above: Result Comment: Elec tronically Signed By: Marcy FORDE, Mariaelena\.maikol\Date and Time Signed: 10/13/23 09:33 EDT Inpatient Patient Summaryon 10-13-2023 Inpatient Patient Summary [address] [address] [facility] Clinical Discharge Instructions PERSON INFORMATION Name: SHEY BOSS [facility]#:[id number] PHYSICIANS Admitting Physician: Pa MAYER MD Attending Physician: Pa MAYER MD PCP: GUERO OLIVO, LATRELL Discharge Diagnosis: Encounter for colorectal cancer screening; Encounter for screening for malignant neoplasm of rectum Comment: PATIENT EDUCATION INFORMATION Instructions: Medication Leaflets: Follow up: With: Address: When: Pa MAYER [address] [place] [address], [address], [address] [address] Business (1) , only if [...] (at bedtime). fluticasone nasal (Flonase 0.05 mg/inh [place]ia) 2 Sprays Nasal Inhalation every day. losartan [...] bedtime) as needed for sleep. Comment: Normal [facility] Main OR PACU I Recordon Main OR PACU I Record PACU Phase I Document Type FT Summary Primary Physician: Pa MAYER MD Finalized Date/Time: 10/13/23 09:54:27 Pt. Name: SHEY BOSS/Sex: 1950 Female Med Rec #: [id number] Physician: Pa MAYER MD Financial #: [id number] Pt. Type: O Room/Bed: / Admit/Disch: 10/13/23 [...] By: Mariaelena Vidal RN 10/13/23 09:54 Normal [facility] Main OR Preoperative Recordo n 10-13-2023 Main OR Preoperative Record Holding Area Document Type FT Summary Primary Physician: Pa MAYER MD Finalized Date/Time: 10/13/23 08:06:06 Pt. Name: SHEY BOSS /Sex: 1950 Female Med Rec #: [id number] Physician: Pa MAYER MD Financial #: [id number] Pt. Type: O Room/Bed: / Admit/Disch: 10/13/23 [...] Signed By: Olivia Domínguez 10/13/23 08:06 Normal [facility] Monitor Recordon 10-13-2023 Monitor Record [id number]#1.00 TIFF Normal [facility] Monitor Record [id number]#1.00 TIFF Normal [facility] Outpatient Surgery Discharge Instructionon 10-13-2023 Outpatient Surgery Discharge Instruction [place] [id number] Patient Discharge Instructions PERSON INFORMATION Name: SHEY BOSS Date of : 1950 Current Date: 10/13/2023 09:16:35 PHYSICIANS Admitting Physician: Pa MAYER MD Discharge Diagnosis: Encounter for colorectal cancer [...] Date Follow up: With: Address: When: Pa MAYER [facility] [address], [address], [facility] [address] [place] [address] Business (1) , only if needed Pharmacy Information: You may receive a survey from [employer] asking you to rate your care experience. Your feedback is important and will help us understand what we do well and how we can improve the quality of care we provide to you, your loved ones and our community. It?s an honor to serve you. Thank you for choosing [facility] HERE ARE THE MEDICATION CHANGES THAT [...] (at bedtime). fluticasone nasal (Flonase 0.05 mg/inh [place]) 2 Sprays Nasal Inhalation every day. losartan [...] sleep. PATIENT EDUCATION INFORMATION Instructions: Medication Leaflets: [facility] Patient Education - Texton 0 10-13-2023 Patient [...] severe or gets worse throughout the day. [facility] Progress Note-Physicianon Progress Note-Physician Patient: SHEY BOSS Age: 73 years Sex: Female : 1950 Associated Diagnoses: None Author: Shaji Bethea Jr., DO Postoperative Information Postoperative disposition: Postoperative disposition: Home. Optimetrix number: Optimetrix number [id number]. Anesthetic utilized: General. Physical Examination Vital Signs [...] Surgery Unit, and To home ). Normal [facility] Comment on above: Result Comment: Elec tronically [...] m2 Documented Medications Documented Flonase 0.05 mg/inh [place]ia: 2 spray(s), Nasal, Daily, Refill(s) 0, Dry [...] a day (at bedtime) Flonase 0.05 mg/inh [place] 2 spray(s), Nasal, Daily losartan 25 mg [...] All Problems BMI 39.0-39.9,adult / SNOMED CT 709970870 / Confirmed Chronic obstructive pulmonary disease / SNOMED CT 15441148 / Confirmed Dyslipidemia / SNOMED CT 3057735042 / Confirmed GERD (gastroesophageal reflux disease) / SNOMED CT 219044422 / Confirmed Hiatal hernia / SNOMED CT 699044398 / Confirmed HTN (hypertension) / SNOMED CT 1613615858 / Confirmed Insomnia / SNOMED CT 671626493 / Confirmed Lower extremity edema / SNOMED CT 900362344 / Confirmed Morbid obesity / SNOMED CT 296291950 / Confirmed EDWIN (obstructive sleep apnea) / SNOMED CT 533218955 / Confirmed Screening for malignant neoplasm of colon / SNOMED CT 115783575 / Confirmed Seasonal allergic rhinitis / SNOMED CT 070428226 / Confirmed TIA (transient ischemic attack) / SNOMED CT 127392539 / Confirmed Resolved: At risk for falls / SNOMED CT 486045672 Problem added when Risk for Falls Careplan was initiated. Resolved due to patient discharge. Resolved: Hernia / SNOMED CT 414972118 Resolved: Potential for deficient knowledge of cerebrovascular accident (CVA) / IMO 37132669 problem added based on Stroke Powerplan ordered. Resolved due to patient discharge. Resolved: Sleep apnea / SNOMED CT 706005966 Histories Past Medical History: Resolved Hernia (956689071): Resolved. Sleep apnea (871722735): Resolved. Procedure history: ORIF - Open reduction of fracture of ankle with internal fixation (842908833834697). Meniscal repair (156587127). Tonsillectomy (557271318). Hand tendon repaired (507229801). Social History Social & Psychosocial Habits Alcohol 09/12/2023 Frequency: 1-2 times per year Substance Abuse Comment: denies - 03/03/2021 07:19 - Carolyn Stewart RN 09/12/2023 Risk Assessment: Denies Substance Abuse Tobacco 09/12/2023 Tobacco Use: Former smoker, quit more Smokeless tobacco use: Never Type: Cigarettes . Physical Examination Vital Signs 10/13/2023 8:03 EDT Temperature Temporal Artery 36.3 DegC (more content not included)... Normal [facility] Comment on above: Result Comment: Elec tronically Signed By: Shaji Bethea Jr., DO\.maikol\Date and Time Signed: 10/13/23 08:04 EDT Consent for Procedure/Surger yon 09-13-2023 Consent for Procedure/Surgery [id number] FF Normal [facility] Ambulatory Visit Summaryon 0 09-12-2023 Ambulatory Visit Summary SHEY BOSS :1950 Visit Date:09/12/2023 Ambulatory Visit Instructions Your Diagnosis BMI 39.0-39.9,adult Your Care Team Attending Physician - TRACEY OLIVO, Pa Vivas Primary Care Physician - LATRELL JACK MD Referring Physician - LATRELL JACK MD This Is Your Medications List Contact prescribing physician if questions or concerns aspirin (aspirin 81 mg Oral EC Tab) atorvastatin (atorvastatin 40 mg Tab) cholecalciferol (Vitamin D3 1000 intl units (25 mcg) Tab) famotidine (famotidine 40 mg Tab) fluticasone nasal (Flonase 0.05 mg/inh [place]) losartan (losartan 25 mg Tab) multivitamin with [...] Unchanged fluticasone nasal (Flonase 0.05 mg/ inh [place]) 2 Sprays Nasal Inhalation Every day Contact [...] for choosing us for your care. Normal [facility] Provider Letteron 08-25-2023 Provider Letter (Inserted Image. Celia ble to display) August 25, 20[address] SHEY BOSS [address] [place] [phone] : 1950 Dear Ms. Boss, We have been trying to reach you with no success regarding a referral from Dr Jack. It is important that you return our call upon receiving this letter so that we can set up an appointment for you in either our [place] or [place] office. Also, at the time of your call, please provide us with your current demographic and insurance information. Thank you for your prompt attention to this matter. Sincerely, [facility] General Surgery [phone] Normal [facility] Physician Referralon 024 Physician Referral [id number]#[id number] IFF Normal [facility] CT LUNG CANCER SCREENINGon 0 07-28-2022 CT [...] MEHNAZ SANTIAGO Date: 2022-07-28 15:28 Normal [facility] BNPon 02-22-2022 Natriuretic peptide B (Bld) [Mass/Vol] 108.0 pg/mL Normal <=900.0 [facility] Comment on above: Performed By: #### B MP, BNP, HSTROPN ####[facility] [id number] [place], [place] [address]DrMichelle Trujillo CBC AUTO DIFFon 02-22-2022 BASO # 0.0 103/ul Normal 0.0-0.1 [facility] Comment on above: Performed By: #### C BC ####[facility] [address] [place], [place] [address]DrMichelle Trujillo Basophils/100 WBC (Bld) 0.7 % Normal 0.2-2.0 [facility] Comment on above: Performed By: #### C BC ####[facility] [address] [place], [place] [address]DrMichelle Trujillo EO # 0.1 103/ul Normal 0.0-0.7 [facility] Comment on above: Performed By: #### C BC ####[facility] Hvjcbcvcso[address] [place], [place] [address]DrMichelle Trujillo Eosinophils/100 WBC (Bld) 1.4 % Normal 0.9-7.0 [facility] Comment on above: Performed By: #### C BC ####[facility] [address] [place], [place] [address]DrMichelle Trujillo Erythrocyte distribution width (RBC) [Ratio] 13.2 % Normal 11.0-15.0 [facility] Comment on above: Performed By: #### C BC ####[facility] [address] [place] [address]Dr. Felisa Trujillo Hematocrit (Bld) [Volume fraction] 36.6 % Normal 36.0-48.0 [facility] Comment on above: Performed By: #### C BC ####[facility] [address]dtokq[address] [place], [place] [address]Dr. Felisa Trujillo Hemoglobin (Bld) [Mass/Vol] 12.7 g/dL Normal 12.0-16.0 [facility] Comment on above: Performed By: #### C BC ####[facility] Kunat[address]vxm[address] [place], [place] [address]Dr. Felisa Trujillo IG # 0.01 10e3/ul Normal 0.00-0.03 [facility] Comment on above: Performed By: #### C BC ####[facility] U[address] [place], [place] [address]Dr. Felisa Trujillo IG % 0.2 % Normal 0.0-0.5 [facility] Comment on above: Performed By: #### C BC ####[facility] Anjmbw[address] [place], [place] [address]DrMichelle Felisa Trujillo LYMPH # 1.0 103/ul Critically low 1.2-3.8 [facility] Comment on above: Performed By: #### C BC ####[facility] [address] [place], [place] [address]DrMichelle Felisa Trujillo Lymphocytes/100 WBC (Bld) 22.3 % Normal 20.5-60.0 [facility] Comment on above: Performed By: #### C BC ####[facility] [address]lawq[address] [place], [place] [address]DrMichelle Felisa Ronnie MANUAL DIFF REQ NO Normal [facility] Comment on above: Performed By: #### C BC ####[facility] Amgicnfbjt[address] [place], [place] [address]DrMichelle Krystakun Trujillo MCH (RBC) [Entitic mass] 31.8 pg Normal 26.7-34.0 [facility] Comment on above: Performed By: #### C BC ####[facility] [address] [place] [address]Dr. Felisa Trujillo MCHC (RBC) [Mass/Vol] 34.7 g/dL Normal 29.9-35.2 [facility] Comment on above: Performed By: #### C BC ####[facility] Y[address] [place], [place] [address]DrMichelle Trujillo MCV (RBC) [Entitic vol] 91.7 fL Normal 81.0-99.0 [facility] Comment on above: Performed By: #### C BC ####[facility] Ufcirylzpd[address] [place], [place] [address]Dr. Felisa Trujillo MONO # 0.5 103/ul Normal 0.3-0.8 [facility] Comment on above: Performed By: #### C BC ####[facility] Nghlmagctd[address] [place], [place] [address]Dr. Felisa Trujillo Monocytes/100 WBC (Bld) 11.7 % Normal 1.7-12.0 [facility] Comment on above: Performed By: #### C BC ####[facility] [address] [place], [place] [address]Dr. Felisa Trujillo NEUT # 2.7 103/ul Normal 1.4-6.5 [facility] Comment on above: Performed By: #### C BC ####[facility] Coawtuhbkd[address] [place], [place] [address]Dr. Felisa Trujillo Neutrophils/100 WBC (Bld) 63.7 % Normal 43.0-75.0 [facility] Comment on above: Performed By: #### C BC ####[facility] [address] [place], [place] [address]Dr. Felisa Trujillo Platelet mean volume (Bld) [Entitic vol] 10.2 fL Normal 9.5-13.5 [facility] Comment on above: Performed By: #### C BC ####[facility] [address]ogth[address] [place], [place] [address]Dr. Felisa Trujillo PLT 149 103/ul Critically low 150-450 [facility] Comment on above: Performed By: #### C BC ####[facility] [address] [place] [address]DrMichelle Trujillo RBC 3.99 106/ul Critically low 4.20-5.40 [facility] Comment on above: Performed By: #### C BC ####[facility] [address] [place] [address]Dr. Felisa Trujillo WBC 4.3 103/ul Normal 4.0-11.0 [facility] Comment on above: Performed By: #### C BC ####[facility] [address] [place] [address]DrMichelle Felisa Trujillo Covid-19 PCR (CVDTB)on 02-07 SARS-CoV-2 (COVID-19) RNA DUGLAS+probe Ql (Unsp spec) Detected Critically abnormal NOT DETECTED [facility] Comment on above: Result Comment: This test is not yet approved or cleared by the [place] FDA. When there are no FDA-approved or cleared tests available, and other criteria are met, FDA can make tests available under an emergency access mechanism called an Emergency Use Authorization (EUA). The EUA for this test is supported by the [place] of Health and Human Service's declaration that [...] be used). Performed By: #### C VDTBH ####[facility] [address] [place] [address]DrMichelle Felisa Ronnie PROF CHEM 8 (BAS METB)on Anion gap [Moles/Vol] 14.9 mmol/L Normal [facility] Comment on above: Performed By: #### B MP, BNP, HSTROPN ####[facility] [address] [place] [address]Dr. Felisa Trujillo Calcium [Mass/Vol] 8.9 mg/dL Normal 8.5-10.1 [facility] Comment on above: Performed By: #### B MP, BNP, HSTROPN ####[facility] [address] [place] [address]Dr. Felisa Trujillo Chloride [Moles/Vol] 104 mmol/L Normal 98-107 [facility] Comment on above: Performed By: #### B MP, BNP, HSTROPN ####[facility] Cpx[address]shfr[address] [place], [place] [address]Dr. Felisa Trujillo CO2 [Moles/Vol] 24.0 mmol/L Normal 21.0-32.0 [facility] Comment on above: Performed By: #### B MP, BNP, HSTROPN ####[facility] Swpfwryicc[address] [place], [place] [address]Dr. Felisa Trujillo Creatinine [Mass/Vol] 0.98 mg/dL Normal 0.55-1.02 [facility] Comment on above: Performed By: #### B MP, BNP, HSTROPN ####[facility] [address] [place], [place] [address]Dr. Felisa Trujillo EGFR-AF EMIRATI >60 Normal >=60 [facility] Comment on above: Performed By: #### B MP, BNP, HSTROPN ####[facility] [address]bsxeske[address] [place], [place] [address]Dr. Felisa Trujillo EGFR-NON AF EMIRATI 56 mL/min/1.73m2 Critically low >=60 [facility] Comment on above: Performed By: #### B MP, BNP, HSTROPN ####[facility] I[address]ts[address] [place], [place] [address]Dr. Felisa Trujillo Glucose [Mass/Vol] 136 mg/dL Critically high 74-106 [facility] Comment on above: Performed By: #### B MP, BNP, HSTROPN ####[facility] [address] [place] [address]Dr. Felisa Trujillo Potassium [Moles/Vol] 3.9 mmol/L Normal 3.5-5.1 [facility] Comment on above: Performed By: #### B MP, BNP, HSTROPN ####[facility] [address] [place] [address]Dr. Felisa Trujillo Sodium [Moles/Vol] 139 mmol/L Normal 136-145 [facility] Comment on above: Performed By: #### B MP, BNP, HSTROPN ####[facility] [address] [place] [address]Dr. Felisa Trujillo Urea nitrogen [Mass/Vol] 14.0 mg/dL Normal 7.0-18.0 [facility] Comment on above: Performed By: #### B MP, BNP, HSTROPN ####[facility] [address] [place] [address]Dr. Felisa Trujillo Urea nitrogen/Creatinine [Mass ratio] 14.3 mg/mg Normal [facility] Comment on above: Performed By: #### B MP, BNP, HSTROPN ####[facility] [address] [place] [address]Dr. Felisa Trujillo TROPONIN, HIGH SENSITIVITYon 02-22-2022 HSTROP 5.9 pg/mL Normal 4.0-51.3 [facility] Comment on above: Result Comment: CUT- OFF POINTS HAVE BEEN ESTABLISHED BASED ON THE FOURTH UNIVERSAL DEFINITIONS OF MYOCARDIAL INFARCTION. THE UPPER REFERENCE LIMIT (URL) OF TROPONIN, DEFINED THE 99TH PERCENTILE OF cTnI DISTRIBUTION IN A REFERENCE POPULATION, HAS BEEN CONFIRMED THE DECISION THRESHOLD FOR ID DIAGNOSIS. Performed By: #### B MP, BNP, HSTROPN ####[facility] [address] [place] [address]Dr. Felisa Trujillo XR CHEST 1 Von 02-22-2022 [...] MEHNAZ SANTIAGO Date: 2022-02-22 13:30 Normal [facility] MAMM SCREEN 3D RONALD CADon 11-11-2021 MG MAMM SCREEN 3D RONALD CAD Patient: SHEY BOSS Exam Date: 11/11/2021 : 1950 Gender:F Ordering : DR LATRELL JACK . Admission #: [id number] Family : Order #: [id number] CLICK HERE TO VIEW EXAM RADIOLOGY REPORT [...] lung cancer at age 46. LOCATION: [facility] BREAST COMPOSITION: Almost entirely fatty. FINDINGS: DIAGNOSTIC [...] LUMP SHOULD BE BIOPSIED. Dictated by: Willard Russo MD on 11/11/2021 at 13:02 Approved by: Willard Russo MD on 11/11/2021 at 13:04 Normal [facility] BNPon 11-02-2021 Natriuretic peptide B (Bld) [Mass/Vol] 42.0 pg/mL Normal <=900.0 [facility] Comment on above: Performed By: #### H STROPN, CMP, BNP #### [facility] [address] [place] [address] Dr. Felisa Trujillo CBC AUTO DIFFon 11-02-2021 BASO # 0.1 103/ul Normal 0.0-0.1 [facility] Comment on above: Performed By: #### C BC #### [facility] [address] [place] [address] Dr. Felisa Trujillo Basophils/100 WBC (Bld) 0.8 % Normal 0.2-2.0 [facility] Comment on above: Performed By: #### C BC #### [facility] [address] [place] [address] Dr. Felisa Trujillo EO # 0.3 103/ul Normal 0.0-0.7 [facility] Comment on above: Performed By: #### C BC #### [facility] [address] [place] [address] Dr. Felisa Trujillo Eosinophils/100 WBC (Bld) 3.9 % Normal 0.9-7.0 [facility] Comment on above: Performed By: #### C BC #### [facility] [address] [place] [address] Dr. Felisa Trujillo Erythrocyte distribution width (RBC) [Ratio] 12.7 % Normal 11.0-15.0 [facility] Comment on above: Performed By: #### C BC #### [facility] [address] [place] [address] Dr. Felisa Trujillo Hematocrit (Bld) [Volume fraction] 40.2 % Normal 36.0-48.0 [facility] Comment on above: Performed By: #### C BC #### [facility] [address] [place] [address] Dr. Felisa Trujillo Hemoglobin (Bld) [Mass/Vol] 13.6 g/dL Normal 12.0-16.0 [facility] Comment on above: Performed By: #### C BC #### [facility] [address] [place] [address] Dr. Felisa Trujillo IG # 0.02 10e3/ul Normal 0.00-0.03 [facility] Comment on above: Performed By: #### C BC #### [facility] [address] [place] [address] Dr. Felisa Trujillo IG % 0.3 % Normal 0.0-0.5 [facility] Comment on above: Performed By: #### C BC #### [facility] [address] [place] [address] Dr. Felisa Trujillo LYMPH # 1.9 103/ul Normal 1.2-3.8 [facility] Comment on above: Performed By: #### C BC #### [facility] [address] [place] [address] Dr. Felisa Trujillo Lymphocytes/100 WBC (Bld) 30.0 % Normal 20.5-60.0 [facility] Comment on above: Performed By: #### C BC #### [facility] [address] [place] [address] Dr. Felisa Trujillo MANUAL DIFF REQ NO Normal [facility] Comment on above: Performed By: #### C BC #### [facility] [address] [place] [address] Dr. Felisa Trujillo MCH (RBC) [Entitic mass] 31.5 pg Normal 26.7-34.0 [facility] Comment on above: Performed By: #### C BC #### [facility] [address] [place] [address] Dr. Felisa Trujillo MCHC (RBC) [Mass/Vol] 33.8 g/dL Normal 29.9-35.2 [facility] Comment on above: Performed By: #### C BC #### [facility] [address] [place] [address] Dr. Felisa rTujillo MCV (RBC) [Entitic vol] 93.1 fL Normal 81.0-99.0 [facility] Comment on above: Performed By: #### C BC #### [facility] [address] [place] [address] Dr. Felisa Trujillo MONO # 0.6 103/ul Normal 0.3-0.8 [facility] Comment on above: Performed By: #### C BC #### [facility] [address] [place] [address] Dr. Felisa Trujillo Monocytes/100 WBC (Bld) 8.5 % Normal 1.7-12.0 [facility] Comment on above: Performed By: #### C BC #### [facility] [address] [place] [address] Dr. Felisa Trujillo NEUT # 3.7 103/ul Normal 1.4-6.5 [facility] Comment on above: Performed By: #### C BC #### [facility] [address] [place] [address] Dr. Felisa Trujillo Neutrophils/100 WBC (Bld) 56.5 % Normal 43.0-75.0 [facility] Comment on above: Performed By: #### C BC #### [facility] [address] [place] [address] Dr. Felisa Trujillo Platelet mean volume (Bld) [Entitic vol] 9.9 fL Normal 9.5-13.5 [facility] Comment on above: Performed By: #### C BC #### [facility] [address] [place] [address] Dr. Felisa Trujillo PLT 193 103/ul Normal 150-450 [facility] Comment on above: Performed By: #### C BC #### [facility] [address] [place] [address] Dr. Felisa Trujillo RBC 4.32 106/ul Normal 4.20-5.40 [facility] Comment on above: Performed By: #### C BC #### [facility] [address] [place] [address] Dr. Felisa Trujillo WBC 6.5 103/ul Normal 4.0-11.0 [facility] Comment on above: Performed By: #### C BC #### [facility] [address] [place] [address] Dr. Felisa Trujillo Covid-19 PCR ([facility])on 10-09 SARS-CoV-2 (COVID-19) RNA DUGLAS+probe Ql (Unsp spec) Not detected Normal NOT DETECTED [facility] Comment on above: Result Comment: When diagnostic [...] for this test is supported by the [place] of Health and Human Service's declaration that [...] used). Performed By: #### C VDTBH #### [facility] [address] [place] [address] [address] Felisa Trujillo LACTATE/LACTIC ACIDon 2021 Lactate [Moles/Vol] 1.0 mmol/L Normal 0.4-2.0 [facility] Comment on above: Performed By: #### L ACT ####[facility] [address] [place] [address]Dr. Felisa Trujillo PH VENOUS BLOODon 11-02-2021 PCO2 VENOUS 40.3 mmHg Normal 40.0-52.0 [facility] Comment on above: Performed By: #### P HVEN ####[facility] [address] [place] [address]Dr. Felisa Trujillo pH VENOUS 7.431 Critically high 7.330-7.430 [facility] Comment on above: Performed By: #### P HVEN ####[facility] [address] [place] [address]Dr. Felisa Trujillo PROF 14(COMP METB)on 022 Albumin [Mass/Vol] 4.1 g/dL Normal 3.4-5.0 [facility] Comment on above: Performed By: #### H STROPN, CMP, BNP ####[facility] [address] [place] [address]Dr. Felisa Trujillo Albumin/Globulin [Mass ratio] 1.1 {ratio} Normal [facility] Comment on above: Performed By: #### H STROPN, CMP, BNP ####[facility] [address] [place] [address]Dr. Felisa Trujillo ALP [Catalytic activity/Vol] 120 U/L Critically high 46-116 [facility] Comment on above: Performed By: #### H STROPN, CMP, BNP ####[facility] [address] [place] [address]Dr. Felisa Trujillo ALT [Catalytic activity/Vol] 29 U/L Normal 14-59 [facility] Comment on above: Performed By: #### H STROPN, CMP, BNP ####[facility] [address] [place] [address]Dr. Krystakun Trujillo Anion gap [Moles/Vol] 14.2 mmol/L Normal [facility] Comment on above: Performed By: #### H STROPN, CMP, BNP ####[facility] [address] [place] [address]Dr. Krystakun Ronnie AST [Catalytic activity/Vol] 24 U/L Normal 15-37 [facility] Comment on above: Performed By: #### H STROPN, CMP, BNP ####[facility] [address] [place], [place] [address]Dr. Felisa Trujillo Bilirubin [Mass/Vol] 0.6 mg/dL Normal 0.2-1.0 [facility] Comment on above: Performed By: #### H STROPN, CMP, BNP ####[facility] [address] [place], [place] [address]Dr. Felisa Trujillo Calcium [Mass/Vol] 8.8 mg/dL Normal 8.5-10.1 [facility] Comment on above: Performed By: #### H STROPN, CMP, BNP ####[facility] [address] [place] [address]Dr. Krystakun Trujillo Chloride [Moles/Vol] 103 mmol/L Normal 98-107 [facility] Comment on above: Performed By: #### H STROPN, CMP, BNP ####[facility] [address] [place], [place] [address]Dr. Felisa Trujillo CO2 [Moles/Vol] 25.3 mmol/L Normal 21.0-32.0 [facility] Comment on above: Performed By: #### H STROPN, CMP, BNP ####[facility] [address] [place], [place] [address]Dr. Felisa Trujillo Creatinine [Mass/Vol] 0.86 mg/dL Normal 0.55-1.02 [facility] Comment on above: Performed By: #### H STROPN, CMP, BNP ####[facility] [address] [place] [address]Dr. Felisa Trujillo EGFR-AF EMIRATI >60 Normal >=60 [facility] Comment on above: Performed By: #### H STROPN, CMP, BNP ####[facility] [address] [place] [address]Dr. Felisa Trujillo EGFR-NON AF EMIRATI >60 Normal >=60 [facility] Comment on above: Performed By: #### H STROPN, CMP, BNP ####[facility] [address] [place] [address]Dr. Felisa Trujillo Globulin (S) [Mass/Vol] 3.6 g/dL Normal [facility] Comment on above: Performed By: #### H STROPN, CMP, BNP ####[facility] [address] [place] [address]Dr. Felisa Trujillo Glucose [Mass/Vol] 90 mg/dL Normal 74-106 [facility] Comment on above: Performed By: #### H STROPN, CMP, BNP ####[facility] [address] [place] [address]Dr. Felisa Trujillo Potassium [Moles/Vol] 3.5 mmol/L Normal 3.5-5.1 [facility] Comment on above: Performed By: #### H STROPN, CMP, BNP ####[facility] [address] [place] [address]Dr. Felisa Trujillo Protein [Mass/Vol] 7.7 g/dL Normal 6.1-8.2 [facility] Comment on above: Performed By: #### H STROPN, CMP, BNP ####[facility] [address] [place] [address]Dr. Felisa Trujillo Sodium [Moles/Vol] 139 mmol/L Normal 136-145 [facility] Comment on above: Performed By: #### H STROPN, CMP, BNP ####[facility] [address] [place], [place] [address]MxMichelle Trujillo Urea nitrogen [Mass/Vol] 13.0 mg/dL Normal 7.0-18.0 [facility] Comment on above: Performed By: #### H STROPN, CMP, BNP ####[facility] [address] [place], [place] [address]QnMichelle Trujillo Urea nitrogen/Creatinine [Mass ratio] 15.1 mg/mg Normal [facility] Comment on above: Performed By: #### H STROPN, CMP, BNP ####[facility] [address] [place] [id number]. Felisa Trujillo PROTIMEon 11-02-2021 INR Coag (PPP) [Relative time] 0.99 {INR} Normal [facility] Comment on above: Performed By: #### P TT, PT #### [facility] [address] [address] [address] Felisa Trujillo INR GUIDELINES SEE BELOW Normal [facility] Comment on above: Result Comment: KAY RED INR: 2.0 - 3.0 CONDITIONS NOT LISTED BELOW 2.5 - 3.5 FOR PROSTHETIC HEART VALVE REPLACEMENT 2.5 - 3.5 RECURRENT THROMBOSIS Performed By: #### P TT, PT #### [facility] [address] [place] [address] Dr. Felisa Trujillo PT Coag (PPP) [Time] 10.7 s Normal 9.0-11.6 [facility] Comment on above: Performed By: #### P TT, PT #### [facility] [address] [address] [address] Felisa Trujillo PTTon 11-02-2021 aPTT Coag (Bld) [Time] 25.9 s Normal 22.3-36.2 [facility] Comment on above: Performed By: #### P TT, PT #### [facility] [address] [address] [address] Felisa Trujillo TROPONIN, HIGH SENSITIVITYon 11-02-2021 HSTROP 8.7 pg/mL Normal 4.0-51.3 [facility] Comment on above: Result Comment: CUT- OFF POINTS HAVE BEEN ESTABLISHED BASED ON THE FOURTH UNIVERSAL DEFINITIONS OF MYOCARDIAL INFARCTION. THE UPPER REFERENCE LIMIT (URL) OF TROPONIN, DEFINED THE 99TH PERCENTILE OF cTnI DISTRIBUTION IN A REFERENCE POPULATION, HAS BEEN CONFIRMED THE DECISION THRESHOLD FOR ID DIAGNOSIS. Performed By: #### H STROPN, CMP, BNP #### [facility] [address] [place], [place] [address] Dr. Felisa Trujillo Covid-19 PCR ([facility])on SARS-CoV-2 (COVID-19) RNA DUGLAS+probe Ql (Unsp spec) Not detected Normal NOT DETECTED [facility] Comment on above: Result Comment: This test is not yet approved or cleared by the [place] FDA. When there are no FDA-approved or cleared tests available, and other criteria are met, FDA can make tests available under an emergency access mechanism called an Emergency Use Authorization (EUA). The EUA for this test is supported by the [place] of Health and Human Service's (HHS's) declaration [...] SARS-CoV-2. Performed By: #### C VDTBH #### [facility] [address] [place] [address] Felisa Trujillo XR CHEST 2 Von [...] by: MEHNAZ SANTIAGO Date: 2021-09-02 14:39 Normal [facility] Lab - AP Resultson 9 Lab - AP Results [id number]#1.00OT [facility] Teston Pathology Send Out. See Report [facility] Comment on above: Order Comment: left ring finger , cyst tendon sheath Performed By: #### 2 [id number] ####[facility] (DEFAULT)[address] [place] [address] Coding Summaryon 02-08-2019 Coding Summary CODING DATE: 019 [facility] STATUS: Home PAYOR: Medicare MC APC DESCRIPTION 5112 Level 2 Musculoskeletal Procedures ADMIT DX: REASON FOR VISIT DX: M65.342 Trigger finger, left ring finger FINAL DX: PRINCIPAL: M65.342 Trigger finger, left ring finger SECONDARY: M67.442 Ganglion, left hand J44.9 Chronic obstructive pulmonary disease, unspecified PYMT PROC APC STAT DESCRIPTION DOCTOR NAME DATE [id number] 5112 J1 Excision of lesion of Daquan [...] Cassy Bradley Date Saved: 02/08/2019 11:52 am [facility] Consent Formson 02-05-2019 Consent Forms [id number]#1.00OT [facility] Discharge Instructionson Discharge Instructions [id number]#1.00OT [facility] History and Physicalon 02-05 History and Physical [id number]#1.00OT GTIFF [facility] MAGR Intraoperative Recordon 02-05-2019 MAGR Intraoperative Record MAGR Intra-Op Record Summary Primary Physician: Daquan Antunez DO Finalized Date/Time: 02/05/19 07:41:01 Pt. Name: SHEY BOSS /Sex: 1950 FEMALE Med Rec #: [id number] Physician: Daquan Antunez DO Financial #: [id number] Pt. Type: D Room/Bed: / Admit/Disch: 02/04/19 [...] Role Performed Surgeon - Primary Anesthesiologist of Stave Machine Tender Record Time In 02/04/19 15:31:00 02/04/19 15:31:00 02/04/19 15:31:00 Time Out 02/04/19 16:08:00 02/04/19 16:08:00 02/04/19 16:08:00 Procedure Trigger Finger Release Trigger Finger Release Trigger Finger Release Last Modified By: Toshia Plascencia RN, Barbara RN Long, Barbara RN 02/04/19 16:16:05 02/04/19 16:16:05 02/04/19 16:16:05 Entry 4 Entry 5 Case Attendee Paloma Esparza Regina CST Role Performed Scrub Personnel Environmental Attorney Time In 02/04/19 15:31:00 02/04/19 15:31:00 Time [...] Modify Pick List 02/05/19 07:40 MHBLONG Modify [facility] Medication Managementon 01-09 Medication Management [id number] [facility] Provider Orderson 02-05-2019 Provider Orders [id number]#[id number] [facility] Anesthesia Noteon 02-04-2019 Anesthesia Note Patient: SHEY [...] Problems Chronic back pain / SNOMED CT 751400311 / Confirmed Former smoker / SNOMED CT 79113109 / Confirmed GERD (gastroesophageal reflux disease) / SNOMED CT 881567601 / Confirmed Scar tissue / SNOMED CT 395009889 / Confirmed Sleep apnea / SNOMED CT 826995585 / Confirmed Histories Family History: No family history items have been selected or recorded. Procedure history: Tonsillectomy (524879129). Epidural injection of lumbar spine using fluoroscopic guidance (2561434594). Social History Alcohol Assessment Use: Current. Beer, [...] rhythm. Review / Management Laboratory Results Plan [place] [employer]esthesiologists#(ASA) physical status classification: Class [...] on: 02/04/2019 15:44 EDT] Alirio Mcclellan MD [facility] Inpatient Patient Summaryon 02-04-2019 Inpatient Patient Summary [address] [address] Patient Discharge Instructions Name: SHEY BOSS : 52 Patient Address: [address] [place] [address] Primary Care Provider: Name: LATRELL JACK After you are discharged if you find you have any questions, please, call [phone] ext [phone] to speak to a nurse. Discharge Diagnosis: Trigger finger Prescription Information: If you have been given a prescription for narcotics, seek immediate medical attention if you have any difficulty breathing or any sudden status changes such as confusion and sleepiness. If you or anyone you know is experiencing suicidal thoughts, mental health, alcohol and/or drug addiction problems; contact the [facility] 30/01 Crisis Hotline -text 4HFYA id 444276. If you received any narcotics, sedation, or [...] business decisions or sign any legal documents [facility] would like to thank you for allowing us to assist you with your healthcare needs. The following includes patient education materials and information regarding your injury/illness. SHEY BOSS has been given the following list of follow-up instructions, prescriptions, and patient education materials: Follow-up Instructions With: Address: When: Daquan Antunez [address] [facility] [address], [address] [place] [address] Business (2) 02/12/2019 2:00 PM With: Address: When: LATRELL JACK [address] [place], [place] [id number] Business (1) Medications During the course of [...] awake -DO NOT lift heavy objects or art glass designer forcefully with the affected hand -DO NOT [...] or concerns, please call the office at [phone] or go to the emergency room -Follow [...] for Disease Control and Prevention March 2014 [facility] MAGR Postoperative Recordon 02-04-2019 MAGR Postoperative Record MAGR Phase II Record Summary Primary Physician: Daquan Antunez DO Finalized Date/Time: 02/04/19 17:11:50 Pt. Name: SHEY BOSS/Sex: 1950 FEMALE Med Rec #: [id number] Physician: Daquan Antunez DO Financial #: [id number] Pt. Type: D Room/Bed: / Admit/Disch: 02/04/19 11:44:00 - 02/04/19 17:05:00 Institution: Phase II Case Times MAGR Pre-Care Text: Patient [...] Signed By: Stefanie Garibay RN 02/04/19 17:11 [facility] MAGR Preoperative Recordon 0 02-04-2019 MAGR Preoperative Record MAGR Pre-Op Record Summary Primary Physician: Daquan Antunez DO Finalized Date/Time: 02/04/19 15:37:19 Pt. Name: SHEY BOSS./Sex: 1950 FEMALE Med Rec #: [id number] Physician: Daquan Antunez DO Financial #: [id number] Pt. Type: D Room/Bed: / Admit/Disch: 02/04/19 [...] By: Toshia Plascencia RN 02/04/19 15:37 Normal [facility] Operative Report - Surgeon/P shalini [...] cc of 1% lidocaine injected locally by pa )transverse incision was made over the A1 [...] on: 02/04/2019 16:37 EDT] Daquan Antunez DO [facility] Patient Handouton 02-04-[address] OHARA POST OPERATIVE INSTRUCTIONS FOR FINGER SURGERY/MALLET FINGER REPAIR SURGEONS WRITTEN INSTRUTCTIONS:' -Keep your hand elevated above your elbow for the first 24 hours after surgery and apply an ice bag at intervals for the first 24 hours -Wiggle the unaffected fingers frequently while awake -DO NOT lift heavy objects or art glass designer forcefully with the affected hand -DO NOT [...] or concerns, please call the office at [phone] or go to the emergency room -Follow up as scheduled [facility] Progress Note - Nurseon 01-08 Progress Note - Nurse Spoke with pt regarding arrival time of 1145 and NPO status. Verbalized understanding. 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 Verbalized understanding. [Electronically Signed on: 02/01/2019 14:53 EDT] Kika Akers RN [Verified on: 02/01/2019 14:53 EDT] Kika Akers RN [facility] Coding Summaryon 01-29-2019 Coding Summary CODING DATE: 019 [facility] STATUS: Home PAYOR: Medicare MC APC [...] Lili Cueto Date Saved: 01/29/2019 01:42 pm [facility] .Auto Diff 1on 01-28-2019 Auto Todd % 8 % Normal 1-12 [facility] Comment on above: Performed By: #### 7 [id number], [id number] #### [facility] (DEFAULT) [address] [place] [address]335 Baso Abs# 0.0 x10 Normal 0.0-0.2 [facility] Comment on above: Performed By: #### 7 [id number], [id number] #### [facility] (DEFAULT) [address] [place] [address]349 Basophils/100 WBC (Bld) 0.4 % Normal 0.2-2.0 [facility] Comment on above: Performed By: #### 7 [id number], [id number] #### [facility] (DEFAULT) [address] [place] [address] 13833 Eos Abs# 0.2 x10 Normal 0.0-0.4 [facility] Comment on above: Performed By: #### 7 [id number], [id number] #### [facility] (DEFAULT) [address] [place] [address] 46258 Eosinophils/100 WBC (Bld) 3.5 % Normal 0.9-4.0 [facility] Comment on above: Performed By: #### 7 [id number], [id number] #### [facility] (DEFAULT) [address] [place] [address] 62587 Lymphocytes (Bld) [#/Vol] 1.6 x10 Normal 1.3-2.9 [facility] Comment on above: Performed By: #### 7 [id number], [id number] #### [facility] (DEFAULT) [address] [place] [address] 28273 Lymphocytes/100 WBC (Bld) 32 % Normal 14-48 [facility] Comment on above: Performed By: #### 7 [id number], [id number] #### [facility] (DEFAULT) [address] [place] [address] 79815 Todd Abs# 0.4 x10 Normal 0.0-0.8 [facility] Comment on above: Performed By: #### 7 [id number], [id number] #### [facility] (DEFAULT) [address] [place] [address] 82974 Neut Abs# 2.8 x10 Normal 1.5-9.2 [facility] Comment on above: Performed By: #### 7 [id number], [id number] #### [facility] (DEFAULT) [address] [place] [address] 14922 Neutrophils/100 WBC (Bld) 56 % Normal 44-88 [facility] Comment on above: Performed By: #### 7 [id number], [id number] #### [facility] (DEFAULT) [address] [place] [address] 82181 CBC w/ Auto Diffon 9 Erythrocyte distribution width (RBC) [Ratio] 13.4 % Normal 11.5-15.0 [facility] Comment on above: Performed By: #### 7 [id number], [id number] #### [facility] (DEFAULT) [address] [place] [address] Hematocrit (Bld) [Volume fraction] 40.4 % Normal 33.7-40.4 [facility] Comment on above: Performed By: #### 7 [id number], [id number] #### [facility] (DEFAULT) [address] [place] [address] Hemoglobin (Bld) [Mass/Vol] 13.9 g/dL Normal 11.3-15.9 [facility] Comment on above: Performed By: #### 7 [id number], [id number] #### [facility] (DEFAULT) [address] [place] [address] Man Diff? Auto Normal [facility] Comment on above: Performed By: #### 7 [id number], [id number] #### [facility] (DEFAULT) [address] [place] [address] MCH (RBC) [Entitic mass] 31 pg Normal 24-34 [facility] Comment on above: Performed By: #### 7 [id number], [id number] #### [facility] (DEFAULT) [address] [place] [address] MCHC (RBC) [Mass/Vol] 34 g/dL Normal 26-37 [facility] Comment on above: Performed By: #### 7 [id number], [id number] #### [facility] (DEFAULT) [address] [place] [address] MCV (RBC) [Entitic vol] 90 fL Normal 81-100 [facility] Comment on above: Performed By: #### 7 [id number], [id number] #### [facility] (DEFAULT) [address] [place] [address] Platelet mean volume (Bld) [Entitic vol] 10.3 fL High 6.3-10.2 [facility] Comment on above: Performed By: #### 7 [id number], [id number] #### [facility] (DEFAULT) [address] [place] [address] 72774 Platelets (Bld) [#/Vol] 199 x10 Normal 138-427 [facility] Comment on above: Performed By: #### 7 [id number], [id number] #### [facility] (DEFAULT) [address] [place] [address] 22058 RBC (Bld) [#/Vol] 4.47 x10 Normal 3.70-5.30 [facility] Comment on above: Performed By: #### 7 [id number], [id number] #### [facility] (DEFAULT) [address] [place] [address] 39840 WBC (Bld) [#/Vol] 5.1 x10 Normal 3.5-10.5 [facility] Comment on above: Performed By: #### 7 [id number], [id number] #### [facility] (DEFAULT) [address] [place] [address] Vital Signs Date Time Vital Sign Value Performing Clinician Facility 03-20-2024 13:23-0400 Diastolic blood pressure 81 mm[Hg] Wilson Sarmini [facility] 03-20-2024 13:23-0400 Heart rate 66 /min Wilson Sarmini [facility] 03-20-2024 13:23-0400 Mean blood pressure 112 mm[Hg] Wilson Sarmini [facility] 03-20-2024 13:23-0400 Respiratory rate 15 /min Wilson Sarmini [facility] 03-20-2024 13:23-0400 SaO2% (BldA) [Mass fraction] 94 % Wilson Sarmini [facility] 03-20-2024 13:23-0400 Systolic blood pressure 173 mm[Hg] Wilson Sarmini [facility] 03-20-2024 13:15-0400 Diastolic blood pressure 78 mm[Hg] Wilson Sarmini [facility] 03-20-2024 13:15-0400 Heart rate 64 /min Wilson Sarmini [facility] 03-20-2024 13:15-0400 Mean blood pressure 105 mm[Hg] Wislon Sarmini [facility] 03-20-2024 13:15-0400 Respiratory rate 13 /min Wilson Sarmini [facility] 03-20-2024 13:15-0400 SaO2% (BldA) [Mass fraction] 96 % Wilson Sarmini [facility] 03-20-2024 13:15-0400 Systolic blood pressure 159 mm[Hg] Wilosn Sarmini [facility] 03-20-2024 13:05-0400 Diastolic blood pressure 76 mm[Hg] Wilson Sarmini [facility] 03-20-2024 13:05-0400 Heart rate 64 /min Wilson Sarmini [facility] 03-20-2024 13:05-0400 Mean blood pressure 99 mm[Hg] Wilson Sarmini [facility] 03-20-2024 13:05-0400 Respiratory rate 12 /min Wilson Sarmini [facility] 03-20-2024 13:05-0400 SaO2% (BldA) [Mass fraction] 96 % Wilson Sarmini [facility] 03-20-2024 13:05-0400 Systolic blood pressure 145 mm[Hg] Wilson Sarmini [facility] 03-20-2024 12:58-0400 Body temperature 97.16 [degF] Wilson Sarmini [facility] 03-20-2024 12:50-0400 Respiratory rate 15 /min Wilson Sarmini [facility] 03-20-2024 12:45-0400 Respiratory rate 18 /min Wilson Sarmini [facility] 03-20-2024 11:14-0400 Blood Pressure Location Wilson Sarmini [facility] 03-20-2024 11:14-0400 Body temperature 97.7 [degF] Wilson Sarmini [facility] 03-20-2024 11:14-0400 Respiratory rate 18 /min Wilson Sarmini [facility] 02-26-2024 09:12-0400 Blood Pressure Location Wilson Sarmini [facility] 02-26-2024 09:12-0400 Diastolic blood pressure 81 mm[Hg] Wilson Sarmini [facility] 02-26-2024 09:12-0400 Heart rate 66 /min Wilson Sarmini [facility] 02-26-2024 09:12-0400 Respiratory rate 16 /min Wilson Sarmini [facility] 02-26-2024 09:12-0400 Systolic blood pressure 131 mm[Hg] Wilson Sarmini [facility] 10-13-2023 09:42-0400 Diastolic blood pressure 80 mm[Hg] Pa PALMERL [facility] 10-13-2023 09:42-0400 Heart rate 69 /min Pa NILL [facility] 10-13-2023 09:42-0400 Mean blood pressure 102 mm[Hg] Pa NILL [facility] 10-13-2023 09:42-0400 Respiratory rate 15 /min Pa NILL [facility] 10-13-2023 09:42-0400 SaO2% (BldA) [Mass fraction] 97 % Pa NILL [facility] 10-13-2023 09:42-0400 Systolic blood pressure 146 mm[Hg] Pa NILL [facility] 10-13-2023 09:32-0400 Diastolic blood pressure 76 mm[Hg] Pa NILL [facility] 10-13-2023 09:32-0400 Heart rate 67 /min Pa NILL [facility] 10-13-2023 09:32-0400 Mean blood pressure 94 mm[Hg] Pa NILL [facility] 10-13-2023 09:32-0400 Respiratory rate 20 /min Pa NILL [facility] 10-13-2023 09:32-0400 SaO2% (BldA) [Mass fraction] 95 % Pa NILL [facility] 10-13-2023 09:32-0400 Systolic blood pressure 129 mm[Hg] Pa NILL [facility] 10-13-2023 09:27-0400 Diastolic blood pressure 71 mm[Hg] Pa NILL [facility] 10-13-2023 09:27-0400 Heart rate 70 /min Pa NILL [facility] 10-13-2023 09:27-0400 Mean blood pressure 92 mm[Hg] Pa PALMERL [facility] 10-13-2023 09:27-0400 Respiratory rate 15 /min Pa PALMERL [facility] 10-13-2023 09:27-0400 SaO2% (BldA) [Mass fraction] 96 % Pa PALMERL [facility] 10-13-2023 09:27-0400 Systolic blood pressure 134 mm[Hg] Pa PALMERL [facility] 10-13-2023 09:17-0400 Body temperature 97.16 [degF] Pa PALMERL [facility] 10-13-2023 09:10-0400 Respiratory rate 16 /min Pa PALMERL [facility] 10-13-2023 09:05-0400 Respiratory rate 16 /min Pa PALMERL [facility] 10-13-2023 08:03-0400 Body temperature 97.34 [degF] Pa PALMERL [facility] 08-11-2023 09:53-0500 Body height 160 cm Latrell Jack MD Work Phone: [facility] 08-11-2023 09:53-0500 Body mass index (BMI) [Ratio] 40.39 kg/m2 Latrell Jack MD Work Phone: [facility] 08-11-2023 09:53-0500 Body temperature 97.11 [degF] Latrell Jack MD Work Phone: [facility] 08-11-2023 09:53-0500 Body weight 103.42 kg Latrell Jack MD Work Phone: [facility] 08-11-2023 09:53-0500 Diastolic blood pressure 70 mm[Hg] Latrell Jack MD Work Phone: [facility] 08-11-2023 09:53-0500 Heart rate 94 /min Latrell Jack MD Work Phone: [facility] 08-11-2023 09:53-0500 SaO2% (BldA) [Mass fraction] 97 % Latrell Jack MD Work Phone: [facility] 08-11-2023 09:53-0500 Systolic blood pressure 140 mm[Hg] Latrell Jack MD Work Phone: [facility] Healthcare Encounters Encounter Date Encounter Type Care Provider Facility Start: 04-11-2024 End: 04-11-2024 ambulatory LATRELL JACK Not Available Start: 03-26-2024 End: 03-26-2024 ambulatory LUCI TOLLIVER Not Available Start: 03-26-2024 End: 03-26-2024 ambulatory Wilson Talal Sarmini Facility:[facility] Start: 03-25-2024 End: 03-25-2024 ambulatory DIOMEDES JUJU Not Available Start: 03-20-2024 End: 03-20-2024 ambulatory Wilson Talal Sarmini Facility:[facility] Start: 03-20-2024 End: 03-20-2024 Patient encounter procedure Wilson Talal Sarmini [facility] Start: 03-07-2024 End: 03-07-2024 ambulatory DIOMEDES JUJU Not Available Start: 02-26-2024 End: 02-26-2024 ambulatory Wilson Talal Sarmini Facility:[facility] Start: 02-26-2024 End: 02-26-2024 Patient encounter procedure Wilson Talal Sarmini [facility] Start: 02-13-2024 ambulatory Pa MAYER Facility:[facility] Start: 02-09-2024 End: 02-09-2024 ambulatory LATRELL JACK Not Available Start: 10-13-2023 End: 10-13-2023 ambulatory Pa MAYER Facility:[facility] Start: 10-13-2023 End: 10-13-2023 Patient encounter procedure Pa MAYER [facility] Start: 09-12-2023 End: 09-12-2023 ambulatory Pa MAYER Facility:[facility] Start: 09-05-2023 ambulatory Pa MAYER Facility:[facility] Start: 08-11-2023 Bamboo flowsheet Latrell Jack MD [...] Start: 09-10-2021 End: 09-10-[address] WILLARD RUSSO Facility:[facility] Start: 09-09-2021 Encounter for prepro cedural laboratory examination [facility] Start: 09-07-2021 End: 09-07-[address] LATRELL JACK Facility:[facility] Start: 09-07-2021 End: 09-07-2021 Encounter for preprocedural laboratory examination DR LATRELL JACK Facility:[facility] Start: 09-03-2021 Encounter for prepro cedural cardiovascular examination [facility] Alfredo [facility] Start: 09-02-2021 End: 09-03-[address] LATRELL JACK Facility:[facility] Start: 09-02-2021 End: 09-03-2021 Encounter for preprocedural cardiovascular examination DR LATRELL JACK Facility:[facility] Procedures Date Procedure Procedure Detail Performing Clinician Start: 03-20-2024 Esophagogastroduodenoscopy Katie george Start: 10-13-2023 Colonoscopy Pa MAYER Hand tendon repaired Pa MAYER Open reduction of fr acture of ankle with internal fixation Pa MAYER Repair of meniscus Pa MORALES Tonsillectomy Pa MAYER Plan of Treatment Date Care Activity Detail Author Start: 02-09-2024 End: 02-09-2024 Patient encounter procedure 02/09/2024 9:45 AM EDT [facility] [address] [place] [id number] Latrell Jack MD [address] [place] [id number] TRACYS LISA Start: 08-11-2023 End: 08-11-2024 Basic metabolic 1998 panel - Serum or Plasma Basic metabolic panel Lab Routine Encounter for long-term (current) use of medications Expected: 08/11/2023 (Approximate), Expires: 08/11/2024 [facility] Comment on above: Expected: 08/11/2023 (Approximate), Expires: 08/11/2024 Start: 08-11-2023 End: 08-11-2024 CBC W Auto Differential panel - Blood CBC and differential Lab Routine Encounter for long-term (current) use of medications Expected: 08/11/2023 (Approximate), Expires: 08/11/2024 [facility] Comment on above: Expected: 08/11/2023 (Approximate), Expires: 08/11/2024 Start: 08-11-2023 End: 08-11-2024 Hemoglobin A1c measurement Hemoglobin A1c Lab Routine Morbid obesity due to excess calories (CMS/HCC) Expected: 08/11/2023 (Approximate), Expires: 08/11/2024 [facility] Work Phone: Comment on above: Expected: 08/11/2023 (Approximate), Expires: 08/11/2024 Start: 08-11-2023 End: 08-11-2024 Hepatic function 2000 panel - Serum or Plasma Hepatic function panel Lab Routine Encounter for long-term (current) use of medications Expected: 08/11/2023 (Approximate), Expires: 08/11/2024 [facility] Comment on above: Expected: 08/11/2023 (Approximate), Expires: 08/11/2024 Start: 08-11-2023 End: 08-11-2024 Lipid 1996 panel - Serum or Plasma Lipid panel Lab Routine Dyslipidemia ([facility]/HCC) Expected: 08/11/2023 (Approximate), Expires: 08/11/2024 [facility] Comment on above: Expected: 08/11/2023 (Approximate), Expires: 08/11/2024 Start: 08-11-2023 End: 08-11-2024 Thyrotropin [Units/volume] in Serum or Plasma TSH Lab Routine Morbid obesity due to excess calories (CMS/HCC) Expected: 08/11/2023 (Approximate), Expires: 08/11/2024 [facility] Comment on above: Expected: 08/11/2023 (Approximate), Expires: 08/11/2024 Start: 08-11-2023 End: 08-11-2023 Patient encounter procedure 08/11/2023 9:45 AM EST Office Visit [facility] [address] [place] [address] Latrell Jack MD [address] [place] [phone] Arrived [facility] Comment on above: Arrived Start: 03-10-2023 Influenza vaccination Influenza Vacc ine (#1) [facility] Healthcare Start: 1991 Screening for malign ant neoplasm of breast Mammogram [facility] Start: 1950 Screening for malign ant neoplasm of colon [facility] Healthcare Immunizations Immunization Date Immunization Notes Care Provider Fa cility 04-09-2023 influenza virus vacc ine, unspecified formulation Pa MAYER [facility] 05-03-2022 SARS-CoV-2 (COVID-19 ) [id number] Pa MAYER [facility] 05-03-2022 influenza virus vacc ine, unspecified formulation Latrell Jack MD Work Phone: [facility] 04-12-2021 influenza virus vacc ine, unspecified formulation Katie Hairston [facility] 04-12-2021 SARS-CoV-2 (COVID-19 ) mRNA BNT-162b2 Disrupt [employer]x [employer] [facility] Comment on above: Result Comment: 2023: [id number] 09-14-2020 SARS-CoV-2 (COVID-19 ) mRNA BNT-162b2 AC [employer] [facility] Comment on above: Result Comment: 2023: [id number] 08-27-2020 SARS-CoV-2 (COVID-19 ) mRNA BNT-162b2 vax [employer] [facility] Comment on above: Result Comment: 2023: [id number] 06-16-2020 influenza virus vacc ine, unspecified formulation Wilson Sarmini [facility] 05-16-2019 influenza virus vacc ine, unspecified formulation Wilson Sarmini [facility] 05-16-2019 pneumococcal polysaccharide vaccine, 23 valent Wilson Sarmini [facility] 05-12-2018 influenza virus vacc ine, unspecified formulation Wilson Sarmini [facility] 01-31-2018 pneumococcal conjuga te vaccine, 13 valent Wilson Sarmini [facility] 05-10-2016 influenza virus vacc ine, unspecified formulation Wilson Sarmini [facility] 04-16-2015 influenza virus vacc ine, unspecified formulation Wilson Sarmini [facility] Payers Date Payer Category Payer Private Health Insurance HU[employer]NA HUMANA HMO/POS [id number] 2022-Present [address] [address] [place] [address] [id number] 2016 Medicare MEDICARE MEDICAR E RAILROAD [id number] 2016-Present [employer] MEDICARE [address] [address] [place] [address] Medicare [id number] 1959 Medicare [id number] 1959 Private Health Insurance [id number] 1950 Unknown [id number] 1950 Unknown [id number] 1950 Unknown [id number] [id number] 1950 Unknown [id number] [id number] 1950 Unknown [id number] 2.593 1950 Unknown [id number] 2.16.840.1.508329.3.579. 2.593 1950 Unknown [id number] 2.16.840.1.457891.3.579. 2.593 1950 Unknown [id number] 2.16.840.1.709381.3.579. 2.727 1950 Unknown [id number] 2.16.840.1.913838.3.579. 2.727 1950 Unknown [id number] 2.16.840.1.928242.3.579. 2.727 1950 Unknown [id number] 2.16.840.1.630361.3.579. 2.727 1950 Unknown [id number] 2.16.840.1.696852.3.579. 2.727 1950 Unknown [id number] 2.16.840.1.443547.3.579. 2.1259 1950 Unknown [id number] 2.16.840.1.903910.3.579. 2.1259 1950 Unknown [id number] 2.16.840.1.431549.3.579. 2.1259 1950 Unknown [id number] 2.16.840.1.643928.3.579. 2.1259 1950 Unknown [id number] 2.16.840.1.949613.3.579. 2.1259 1950 Unknown [id number] 2.16.840.1.418144.3.579. 2.1259 Social History Date Type Detail Facility Start: 08-05-2023 End: 02-26-2024 Tobacco smoking status NHIS Ex-smoker [facility] End: 07-10-2011 History of tobacco use Current smoker [facility] End: 07-10-2011 History of tobacco use Cigarette Smoker [facility] Start: 08-05-2023 End: 08-11-2023 Cigarettes smoked current (pack per day) - Reported 1 [facility] Start: 08-05-2023 End: 08-11-2023 Tobacco use panel [facility] Start: 1950 Sex Assigned At Not on file N [facility] Start: 08-11-2023 Tobacco use and exposure Smokeless tobacco non-user [facility] Tobacco smoking status Never [facility] Functional Status Date Assessment Result Facility 03-20-2024 Functional Status N/A [facility] 02-26-2024 Functional Status N/A [facility] 10-13-2023 Functional Status N/A [facility] Clinical Notes 09-10-2021 to 03-27-2024 Radiology [...] 1 tab, Oral, Daily Flonase 0.05 mg/inh Sandia: 2 spray(s), Nasal, Daily, Refill(s) 0, Dry [...] a day (at bedtime) Flonase 0.05 mg/inh [place] 2 spray(s), Nasal, Daily losartan 25 mg [...] All Problems HTN (hypertension) / SNOMED CT 3100953808 / Confirmed Chronic obstructive pulmonary disease / SNOMED CT 28983799 / Confirmed Insomnia / SNOMED CT 634938527 / Confirmed Seasonal allergic rhinitis / SNOMED CT 322724867 / Confirmed Dyslipidemia / SNOMED CT 2155912802 / Confirmed BMI 39.0-39.9,adult / SNOMED CT 854323211 / Confirmed Morbid obesity / SNOMED CT 481611704 / Confirmed GERD (gastroesophageal reflux disease) / SNOMED CT 710597341 / Confirmed Hiatal hernia / SNOMED CT 069381972 / Confirmed EDWIN (obstructive sleep apnea) / SNOMED CT 220589945 / Confirmed Lower extremity edema / SNOMED CT 021998292 / Confirmed TIA (transient ischemic attack) / SNOMED CT 793270729 / Confirmed Screening for malignant neoplasm of colon / SNOMED CT 097985880 / Confirmed Dysphagia / SNOMED CT 38488136 / Confirmed Histories Past Medical History: Resolved Hernia (909975693): Resolved. Sleep apnea (831048148): Resolved. Family History: Father Alcoholism Primary malignant neoplasm of lung COPD Mother Cardiac arrest Alzheimer's disease Procedure history: Colonoscopy (664378403) on 10/13/2023 at 73 Years. ORIF - Open reduction of fracture of ankle with internal fixation (979680956690028). Meniscal repair (951733808). Tonsillectomy (037864608). Hand tendon repaired (567785157). Social History Social & Psychosocial Habits Alcohol [...] mmHg (MAR 20:) DBP 72 mmHg (MAR 20) Weight 100 kg (MAR 20) General: in Nad Abdomen: Soft, NTND Impression and Plan Impression: DYSPHAGIA Plan: -EGD [facility] Comment on above: Result Comment: sannarupa g folder Electronically Signed By: Yovanny OLIVO, Katie [...] Follow these instructions at home: Medicines Take loku-zym-zgdajkc and prescription medicines only as told by [...] or drinks. ?Garlic or onions. ?Spicy foods. ?Milam fruits. ?Tomato-based foods. ?Fatty or fried foods. [...] provider. Document Revised: 01/09/2023 Document Reviewed: 01/09/2023 needmade Patient Education 2023 Videobot. 03/20/2024 13:07:56 Gastritis, Adult, Iufu-bd-Dgok Gastritis, Adult Gastritis is irritation and swelling [...] Follow these instructions at home: Medicines Take vyhj-wfo-emzkotk and prescription medicines only as told by [...] provider. Document Revised: 10/30/2021 Document Reviewed: 10/30/2021 Elsevier Patient Education 2023 Videobot. 03/20/2024 13:07:48 Hiatal Hernia Hiatal Hernia A [...] reduce GERD symptoms. Medicines. These may include: ?Yvjk-sjz-sdpijsk antacids. ?Medicines that make your stomach empty [...] may include: ?Fatty foods, like fried foods. ?Milam fruits, like oranges or lemon. ?Other foods [...] Do not drink alcohol. General instructions Take rixc-yew-ufnsrxb and prescription medicines only as told by [...] provider. Document Revised: 08/23/2022 Document Reviewed: 08/23/2022 needmade Patient Education 2023 Videobot. 03/20/2024 13:07:46 Endoscopy, Care After Procedure [facility] Endoscopy Care After Procedure Please read the [...] Document Re-Released: 12/18/2006 ExitCare Patient Information 2009 School Admissions. Follow Up Care 02/26/2024 09:52:05 With:Yovanny OLIVO, SENAIT Sifuentes, [facility] Address: When: Unknown Comments:Call for any problems. Office will call to schedule follow up appointment [facility] 03-20-2024 Evaluation + Plan note Future Scheduled TestsXR Esophagus 03/20/24 [facility] 03-20-2024 Note Patient Education - Text Endoscopy [...] Document Re-Released: 12/18/2006 ExitCare? Patient Information ?2009 School Admissions. Gastroenterology Hiatal Hernia A hiatal hernia occurs [...] symptoms. ? Medicines. These may include: ? Bbbu-cbh-dhgwfcu antacids. ? Medicines that make your stomach [...] Avoid putting pressu (more content not included)... [facility] 03-20-2024 Note Endoscopic Procedure Report - Other Patient: SHYE BOSS Age: 73 years Sex: Female : 1950 Associated Diagnoses: None Author: Katie Hairston MD Pre-Procedure Procedure Date 03/20/2024 12:54:00 . Procedure Type: Esophagogastroduodenoscopy with biopsy. Procedure provider Performed by Katie Hairston MD. Current history and physical Documented on [...] otherwise normal examined duodenum Images Procedure images: Rec1_hd_video_2023__T1_02_49_155.j pg Rec1_hd_video_2023__T1__35_581.j pg Rec1_hd_video_2023__T1__25_745.j pg Rec1_hd_video_2023__T1__15_326.j pg Rec1_hd_video_2023__T12_00_14_566.j pg Rec1_hd_video_2023__T12_00_01_833.j pg . Post-Procedure Complications: none. Estimated blood [...] surgery referral is indicated, will be ordered [facility] Comment on above: Result Comment: Elec tronically Signed By: Yovanny OLIVO, Katie Torres\.br\Date and Time Signed: 03/20/24 12:58 EDT Other Comment: Samreen dueñas Attachment - attachment storage system not supported [id number] Can be viewed in source systemMissing Attachment - attachment storage system not supported [id number] Can be viewed in source systemMissing Attachment - attachment storage system not supported 4574292 Can be viewed in source systemMissing Attachment - attachment storage system not supported 2971571 Can be viewed in source systemMissing Attachment - attachment storage system not supported 2651679 Can be viewed in source systemMissing Attachment - attachment storage system not supported 7914864 Can be viewed in source system 03-20-2024 [...] 1 tab, Oral, Daily Flonase 0.05 mg/inh Sandia: 2 spray(s), Nasal, Daily, Refill(s) 0, Dry [...] a day (at bedtime) Flonase 0.05 mg/inh [place]ia 2 spray(s), Nasal, Daily losartan 25 mg [...] All Problems HTN (hypertension) / SNOMED CT 6079827124 / Confirmed Chronic obstructive pulmonary disease / SNOMED CT 43509042 / Confirmed Insomnia / SNOMED CT 571250270 / Confirmed Seasonal allergic rhinitis / SNOMED CT 162950513 / Confirmed Dyslipidemia / SNOMED CT 8777992043 / Confirmed BMI 39.0-39.9,adult / SNOMED CT 341719661 / Confirmed Morbid obesity / SNOMED CT 479398903 / Confirmed GERD (gastroesophageal reflux disease) / SNOMED CT 046900490 / Confirmed Hiatal hernia / SNOMED CT 678941352 / Confirmed EDWIN (obstructive sleep apnea) / SNOMED CT 657842269 / Confirmed Lower extremity edema / SNOMED CT 850440201 / Confirmed TIA (transient ischemic attack) / SNOMED CT 939613945 / Confirmed Screening for malignant neoplasm of colon / SNOMED CT 412236030 / Confirmed Dysphagia / SNOMED CT 12888291 / Confirmed Histories Past Medical History: Resolved Hernia (499974818): Resolved. Sleep apnea (517647525): Resolved. Family History: Father Alcoholism Primary malignant neoplasm of lung COPD Mother Cardiac arrest Alzheimer's disease Procedure history: Colonoscopy (221679938) on 10/13/2023 at 73 Years. ORIF - Open reduction of fracture of ankle with internal fixation (374610978301748). Meniscal repair (334635595). Tonsillectomy (469604969). Hand tendon repaired (426398614). Social History Social & Psychosocial Habits Alcohol [...] Impression and Plan Impression: DYSPHAGIA Plan: -EGD [facility] Comment on above: Result Comment: Elec tronically Signed By: Yovanny OLIVO, Katie Torres\.br\Date and Time Signed: 03/20/24 12:47 EDT 10-16-2023 Note [id number] 85#1.00TIFF [facility] 10-13-2023 Evaluation + Plan note Extrac clarke from: Title:ANES Post-operative Note - General Author: Shaji Bethea Jr., DO Date:10/13/23 Plan Transfer/Discharge: Transfer/Discharge Discharge when meets criteria ( From PACU to Ambulatory Surgery Unit, and To home ). Extracted from: Title:ANES Pre-operative Note - Endo Author:Shaji Mendoza Jr., DO Date:10/13/23 Plan [place] [employer]hesiologists (ASA) physical status classification: Class III. Anesthetic Preoperative Plan: Anesthesia General, and -TIVA. [facility]04-05-2024 Hospital Discharge instructions Patient Education 10/13/2023 09:31:42 Colonoscopy, Care After Surgery Salam (CUSTOM) Colonoscopy Care After Surgery Please read the instructions outlined below and refer to this sheet in the next few weeks. These discharge instructions provide you with general information on [facility] Your doctor may also give you specific [...] day. Follow Up Care 09/12/2023 10:17:58 With:Pa MAYER Address: [address] [place], [place] [address], [address] [place] [phone] Business (1) When: only if needed [facility]04-05-2024 NotePatient: SHEY BOSS Age: 73 years Sex: Female : 1950 Associated Diagnoses: None Author: Pa MAYER MD Subjective no changes to H & PFUC HealthComment on above:Result Comment: Electronically Signed By: Pa MAYER MD\.br\Date and Time Signed: 10/13/23 09:45 [id number] NoteChief Complaint consultation for colonoscopy HPI Staff 72 year old female presents on [...] a day (at bedtime) Flonase 0.05 mg/inh Sandia, 2 spray(s), Nasal, Daily losartan 25 mg [...] Alcoholism: Father. Alzheimer's di (more content not included)...[facility]Result Comment: Electronically Signed By: TRACEY OLIVO, Pa Lynn\Date and Time Signed: 09/12/23 10:16 [id number] History of Present illness Narrative* Latrell Jack [...] referral [facility] General [facility] [id number] NoteEXAMINATION: XR CHEST 1 V HISTORY: SHORTNESS [...] Electronically authenticated by: MEHNAZ SANTIAGO Date: 2021-11-02 16:39[facility]03-04-2022 NotePROCEDURE: XR ANKLE RT MIN 3 [...] expected postsurgical changes Electronically authenticated by: WILLARD RUSSO Date: 2021-09-10 09:02[facility]03-04-2022 NotePROCEDURE: XR ANKLE RT 2V COMPARISON: 03/02/2020. HISTORY: Pain FINDINGS: 35 seconds of fluoroscopy. 5 fluoroscopic images Interval removal of internal fixation hardware. Components of 2 fractured screws across the tibiofibular syndesmosis remain on image #5 IMPRESSION: Removal of lateral fibular plate and screws Electronically authenticated by: WILLARD RUSSO Date: 2021-09-10 08:30[facility] note Future Appointments Appointment Date:03/20/2024 12:15:00 PM Scheduled Provider: Location:[facility] Appointment Type:Surgery [facility] Evaluation note* Diagnosis Essential hypertension, benign (CMS/HCC)- Primary Essential hypertension, benign Chronic obstructive pulmonary disease, unspecified COPD type ([facility]/HCC) Primary insomnia Persistent disorder of initiating or maintaining sleep Primary osteoarthritis of both knees Hiatal hernia with gastroesophageal reflux disease without esophagitis Seasonal allergic rhinitis due to pollen Screening for colon cancer Special screening for malignant neoplasms, colon Morbid obesity due to excess calories (CMS/HCC) Dyslipidemia (CMS/HCC) Other and unspecified hyperlipidemia Encounter for long-term (current) use of medications Encounter for long-term (current) use of other medications Body mass index [BMI] 40.0-44.9, adult (Z68.41) [facility] Narr[facility] No data available for this section [facility] No data available for this section [facility] Progress note No data available for this section [facility])* Consultation (Routine) - Pending Review Specialty Diagnoses / Procedures Referred By Joan junior Referred To Contact General Surgery Diagnoses Screening for colon cancer Procedures NC OFFICE/OUTPATIENT NEW HIGH MDM 60 MINUTES Latrell Jack MD [address] [place] [address] Pa Mayer MD [address] [place] [address] Referral ID Status Reason Start Date Expiration Date Visits Requested Visits Authorized [id number] Pending Review Specialty Services Required 08/11/2023 02/07/2024 [...] Advanced Directives Records Found Hospital Course Note [facility] Clinical Discharge Summary PERSON INFORMATION Name SHEY BOSS Age 68 Years 52 Sex FEMALE Language Palestinian PCP LATRELL JACK Marital Status Single Med Service Ambulatory Surgery Acct# Arrival 02/04/19 11:44:00 Visit Reason SURGERY - RELEASE TRIGGER FINGER LEFT RING FINGER AND E/O CYST LEFT RING FINGER Acuity LOS 012 05:38 Address: [address] [place] [address] Comment: PROVIDER INFORMATION VITALS INFORMATION Vital Sign [...] (FEB 04 16:03) SpO2 96 % (FEB 04 16:05) Pain assessment: Self-reports no pain. General: Alert [...] (FEB 04 16:03) SpO2 96 % (FEB 04 16:05) Pain assessment: Self-reports no pain. General: Alert [...] section and content) DATE CREATED AUTHOR 02/17/2019 [facility] DATE CREATED AUTHOR AUTHOR'S ORGANIZ ATION 08/03/2022 [facility] DATE CREATED AUTHOR AUTHOR'S ORGANIZ ATION 03/28/2024 [facility] DATE CREATED AUTHOR AUTHOR'S ORGANIZ ATION 03/30/2024 Jernigan Davison [facility] DATE CREATED AUTHOR AUTHOR'S ORGANIZ ATION 04/04/2024 Jernigan Davison [facility] DATE CREATED AUTHOR AUTHOR'S ORGANIZ ATION 04/13/2024 [facility] d[facility] Specialists [facility] Care Teams (unrecognized sec tion and content) [employer] Salesperson Relationship Specialty Start Date End Date Latrell Jack MD [address] [place] [address] PCP - General Family Medicine 08/05/23 [employer] Sales[employer] Relationship Specialty Start Date End Date Latrell Jack MD [address] [place] [address] PCP - General Family Medicine [...] BE BASED ON THE PRIMARY CLINICAL RECORDS. [employer] provides no warranty or guarantee of the accuracy or completeness of information in this document.
--- NOTE | 2024-04-15 15:58 | P.CN_ITS ---
Consult Note: HPI Data of Consult Patient: new to practice Consult date: 04/15/24 Requesting Physician: Talat Arguello MD Primary Care Provider: Latrell Mckeon MD Consult Narrative Reason for consult: right foot pain Narrative: 73yof who presents for evaluation. many years of right foot pain. previously had right foot surgery. recently saw staying machine operator, who thinks this is related to patient's spinal issues. no recent imaging of lumbar spine available. continues in a series of provider directed home exercises >6 weeks, without lasting benefit. uses otc meds as needed. denies adverse med side effects. cc:: CC: Talat Arguello MD Review of Systems ROS Status of ROS 10 or more systems reviewed and unremark able except as noted in history and below Exam Narrative Exam Narrative: Psych-alert and oriented x 3. Attentive and appropriate, constitutionally no rmal, displays normal mood and affect per situation. There are no obvious deficits in memory, reasoning, or intellect.? Skin-no obvious rashes, bruising, erythema noted to the patient's area of pain.? Extremities- extremities are warm with minimal edema and palpable pulses. Lumbar-tenderness to palpation noted in the lumbar spine and paraspinal musculature. Pain is not elicited with flexion, extension, and lateral rotation of the lumbar spine. Range of motion is not diminished with these motions. Facet loading maneuvers are negative.? Strength-noted to be unremarkable Sensory-no notable sensory deficits in the bilateral lower extremities to touch or pinprick in all dermatomal distributions with the exception to decreased sensation to the right L5, S1 dermatomal distribution Coordination remains intact.? Gait remains non-antalgic. Assessment and Plan Assessment and Plan (1) Lumbar stenosis with neurogenic claudication: (2) Lumbar radiculopathy: Plan 73yof who presents for evaluation. failed conservative measures, as noted. given symptoms and exam findings, prudent to update lumbar mri without contrast. she is in agreement. meds reviewed, no changes. follow up after mri.
== END 2024-04-15 13:38 | disposition home or self-care (01) ==
LOC: PM 13:38
PROVIDERS: PCP Family Medicine; Visit Provider Anesthesiology
DX: M48.062 Spinal stenosis, lumbar region with neurogenic claudication (principal); M54.12 Radiculopathy, cervical region
CPT/HCPCS: G0463

== ENCOUNTER 2024-04-22 07:21 | Outpatient (OUT) | payer MEDICARE, OTHER, SELFPAY ==
--- NOTE | 2024-04-22 | MR_ITS ---
[address] [address] Patient Name: PARTH BOSS MRN: [id number] date: 1950 Sex: F Assigned Patient Location: MRI Current Patient Location: Accession/Order Number: [id number] Exam Date: 04/22/2024 07:45 Report Date: 04/22/2024 13:57 At the request of: DIMAS BRADEN Procedure: MR lumbar spine wo con EXAMINATION: MR lumbar spine wo con HISTORY: Lumbar stenosis with neuroclaudication COMPARISON: No relevant comparison available. TECHNIQUE: A variety of imaging planes and parameters were utilized for visualization of suspected pathology. FINDINGS: For the purposes of numbering, sagittal T2 image # 8 extends from the T10/T11 vertebral body superiorly to the S3-S4 level inferiorly. PARASPINAL AREA: Normal with no visible mass. BONES: Normal alignment with no acute fracture, dislocation or bone edema. CORD/CAUDA EQUINA: Normal caliber, contour, and signal intensity. DISC LEVELS: 12-L1: No significant disc/facet abnormality, spinal stenosis, or foraminal stenosis. L1-L2: Moderate disc space narrowing and disc desiccation. Moderate diffuse disc bulge with ligamentum flavum hypertrophy and facet osteoarthropathy L2-L3: Early degenerative disc disease is present without focal protrusion or neural impingement. L3-L4: Disc space narrowing and disc desiccation. Mild diffuse disc/osteophyte complex. Moderate ligamentum flavum hypertrophy. Mild central canal stenosis. No foraminal stenosis L4-L5: Disc desiccation. Mild diffuse disc/osteophyte complex. Severe segmental flavum hypertrophy and facet osteoarthropathy. Severe central canal stenosis. No right foraminal stenosis. Mild narrowing of the left neural foramen L5-S1: Disc desiccation. Posterior broad-based disc protrusion extending posteriorly up to 2.8 mm. No central or foraminal stenosis MR/MR lumbar spine wo con IMPRESSION: Degenerative changes most significant at L4-L5 where there is severe central canal stenosis and mild left foraminal stenosis Electronically authenticated by: WILLARD RUSSO Date: 04/22/2024 13:57
--- OUTSIDE RECORDS SUMMARY | 2024-04-22 07:25 | XMS_ITS | CCD ---
Author Organization [facility] Care Team Providers Care Systems Analyst Developer Name Role Phone FREDY, DR CHAPARRO Attending Unavailable NADERER, DR LATRELL Flood Primary Care Unavailable Zieber, DR Blue Consulting Unavailable HAY, DR CHAPARRO Admitting Unavailable GRECHNY, MARYCARMEN MAIER Consulting Unavailable NADERER, DR LATRELL Flood Primary Care Unavailable HIGHLANDER, MARNIE Fuentes Admitting Unavailable HIGHLANDER, MARNIE Fuentes Attending Unavailable Zieber, DR Blue Consulting Unavailable HIGHLANDER, MARNIE Fuentes Consulting Unavailable FLORES, SANDRA Consulting Unavailable NADERER, DR LATRELL Flood Primary [...] Unavailable NADERER, DR LATRELL Flood Attending Unavailable NADLAURA, DR LATRELL Flood Primary Care Unavailable Davidebfaby, DR Blue Consulting Unavailable NADEREOrtega, DR LATRELL Flood Consulting Unavailable NADERER, DR LATRELL Flood Admitting Unavailable WEST, DR WILLARD Cárdenas Consulting Unavailable NADERER, DR LATRELL Flood Attending Unavailable NADERER, DR LATRELL Flood Primary Care Unavailable NADERER, DR LATRELL Flood Consulting Unavailable FREDY, DR CHAPARRO Consulting Unavailable GUERO, DR LATRELL Flood Primary Care Unavailable FREDY, DR CHAPARRO Admitting Unavailable FREDY, DR CHAPARRO Attending Unavailable Guero OLIVO, Latrell Primary Care Provider GUERO, LATRELL Primary Care Physician Pa WEBB Referring Unavailable NILEmily, Pa Vivas Attending Unavailable Pa WEBB Admitting Unavailable Katie Hairston Referring Unavaila ble Sarmini, Wilson Talal Attending Unavaila ble Sarmini, Wilson Talal Admitting Unavaila ble Sarmini, Wilson Talal Referring Unavaila ble Sarmini, Wilson Talal Attending Unavaila ble Sarmini, Wilson Talal Admitting Unavaila ble Sarmini, Wilson Talal Attending Unavaila Pa Miller Attending Unavailable LATRELL JACK Referring Unavailable LATRELL JACK Attending Unavailable LATRELL JACK Attending Unavailable DIOMEDES MATUTE Attending Unavailable GUERO, LATRELL Referring Unavailable DIOMEDES MATUTE Referring Unavailable MAO MORROW Attending Unavailable Allergies Allergy Classification Reported Allergen(s) Allergy Type Date of Onset Reaction(s) Facility (1 source) Amino Acids Drug Allergy [facility] Repository Medications Current Medications Medication Drug Class(es) Dates Sig (Normalized) Sig (Original) aspirin 81 mg delayed release oral tablet (8 sources) Platelet Aggregation Inhibitor, Nonsteroidal Anti-inflammatory Drug Start: 03-05-2021 take 1 tablet by mouth once daily aspirin 81 mg Oral EC Tab 81 mg = 1 tab(s), Oral, Daily, Refills(s) 0, Prophylaxis Start Date: 03/05/21 Status: Ordered atorvastatin 40 mg oral tablet (8 sources) HMG-CoA Reductase Inhibitor Start: 09-06-2023 take 1 tablet by mouth at bedtime atorvastatin (Lipitor) 40 MG tablet Indications: Dyslipidemia (CMS/HCC) Take 1 tablet (40 mg) by mouth at bedtime 90 tablet 3 02/09/2024 Active take 1 tablet by mouth once buck [...] Ordered calcium carbonate 1500 mg oral tablet (5 sources) take 1 tablet by mouth in the morning calcium carbonate 1500 (600 Ca) MG tablet Take 1 tablet by mouth in the morning and 1 tablet in the evening. Take with meals. Active cholecalciferol 0.025 mg oral capsule (5 sources) Vitamin D take 1 capsule by mouth once daily cholecalciferol (Vitamin D-3) 25 MCG (1000 UT) capsule Take 1 capsule by mouth 1 (one) time each day at the same time Active donepezil hydrochloride 5 mg oral tablet (4 sources) Start: take 1 tablet by mouth at bedtime donepezil (Aricept) 5 MG tablet Indications: 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CMS/HCC) TAKE 1 TABLET BY MOUTH AT BEDTIME 90 tablet 1 03/04/2024 Active famotidine 40 mg oral tablet (8 sources) Histamine-2 Receptor Antagonist Start: take 1 tablet by mouth once daily at bedtime famotidine 40 mg Tab 40 mg = 1 tab(s), Oral, Once a day (at bedtime), Refills(s) 0, Control of stomach acid Start Date: 03/03/21 Status: Ordered fluticasone propionate 0.05 mg/actuat metered dose nasal spray (8 sources) Corticosteroid Start: take 2 spray(s) nasal route once daily fluticasone (Flonase) 50 MCG/ACT nasal spray Indications: Seasonal allergic rhinitis due to pollen USE 2 SPRAYS IN EACH NOSTRIL DAILY 48 mL 5 03/26/2024 Active Start: 09-06-2023 Flonase 0.05 m g/inh [place] 2 spray(s), Nasal, Daily, Refill(s) 0, Dry nasal passages Start Date: 09/06/23 Status: Ordered Start: 06-21-2023 take 2 spray(s) nasa l route in the morning fluticasone (Flonase) 50 MCG/ACT nasal spray Administer 2 sprays into each nostril in the morning. 0 06/21/2023 Active losartan potassium 50 mg oral tablet (8 sources) Angiotensin 2 Receptor Martin Start: 02-09-2024 take 1 tablet by mouth once daily losartan (Cozaar) 50 MG tablet Indications: Essential hypertension, benign (CMS/HCC) Take 1 tablet (50 mg) by mouth Daily 90 tablet 3 02/09/2024 Active Start: 09-06-2023 take 1 tablet by jennifer th once daily losartan 25 mg Tab 25 mg = 1 tab(s), Oral, Daily, Refills(s) 0, High blood pressure Start Date: 09/06/23 Status: Ordered take 1 tablet by jennifer once daily losartan (Cozaar) 25 MG tablet Take 1 tablet by mouth 1 (one) time each day at the same time 0 Active pantoprazole 40 mg delayed release oral tablet (8 sources) Proton Pump Inhibitor Start: 03-03-2021 take 1 tablet by mouth in the morning pantoprazole (ProtoNix) 40 MG EC tablet Indications: Hiatal hernia with gastroesophageal reflux disease without esophagitis Take 1 tablet (40 mg) by mouth in the morning and 1 tablet (40 mg) before bedtime. 180 tablet 3 02/09/2024 Active tiotropium 0.018 mg inhalation powder (6 sources) Anticholinergic Start: 10-09-2023 End: 10-08-2024 take 1 capsule by inhalation in the morning tiotropium (Spiriva HandiHaler) 18 MCG inhalation capsule Indications: Chronic obstructive pulmonary disease, unspecified COPD type (CMS/HCC) Place 1 capsule (18 mcg) into inhaler and inhale in the morning. 30 capsule 11 10/09/2023 10/08/2024 Active Start: 09-06-2023 take 1 capsule by in halation once daily Spiriva HandiHaler 18 mcg inhalation [...] Start Date: 09/06/23 Status: Ordered Vitamin E (7 sources) Start: 02-26-2024 vitamin E Oral , Daily, Refills(s) 0, Prophylaxis Start Date: 02/26/24 Status: Ordered Start: 02-26-2024 vitamin E Oral , Refills(s) 0 Start Date: 02/26/24 Status: Ordered take 1 capsule by mo [facility] once daily alpha tocopherol (Vitamin E) 400 units capsule Take 1 capsule by mouth 1 (one) time each day at the same time Active zolpidem tartrate 12.5 mg extended release oral tablet (8 sources) gamma-Aminobutyric Acid-ergic Agonist Start: 03-03-2021 zolpidem CR (Ambien CR) 12.5 MG ER tablet Indications: Primary insomnia TAKE 1 TABLET AT BEDTIME 90 tablet 2 11/17/2023 Active Completed/Discontinued Medications Medication Drug Class(es) Dates Sig (Normalized) Sig (Original) albuterol 0.83 mg/ml inhalation solution (4 sources) beta2-Adrenergic Agonist Start: 02-23-2024 albuterol 0.083% Inh [place] 3 mL Refill(s) 0, 150 mL, 0 Refill(s), INHALE 3 ML(2.5 MG) BY NEBULIZER EVERY 4 HOURS NEEDED FOR SHORTNESS OF BREATH OR WHEEZING Start Date: 02/23/24 Status: Ordered Start: 02-09-2024 albuterol (2.5 MG/3ML) 0.083% nebulizer solution Indications: Chronic obstructive pulmonary disease, unspecified COPD type (CMS/HCC) Take 3 mL (2.5 mg) by nebulization every 4 (four) hours if needed for wheezing or shortness of breath 150 mL 3 02/09/2024 Active One A Day Women's Complete (3 sources) Start: 03-03-2021 One A Day Wome n's Complete Oral, Daily, Refill(s) 0, Prophylaxis Start Date: 03/03/21 Status: Ordered Problems Active Problems Problem Classification Problem Date Documented Da te Episodic/Chronic Acute cerebrovascular disease (2 sources) Cerebrovascular accident; Translations: [Cerebral infarction, unspecified] Onset: 4 03-03-2024 Chronic Anxiety disorders (2 sources) Generalized anxiety disorder; Translations: [Generalized anxiety disorder] 04-12-2024 Chronic Chronic obstructive pulmonary disease and bronchiectasis (12 sources) Chronic obstructive pulmonary disease, unspecified; Translations: [Chronic obstructive pulmonary disease with (acute) exacerbation] Onset: 2 08-11-2023 Chronic Delirium, dementia, and amnestic and other cognitive disorders (2 sources) Senile dementia; Translations: [Unspecified dementia without behavioral disturbance] Onset: 4 02-09-2024 Chronic Disorders of lipid metabolism (11 sources) Hyperlipidemia, unspecified; Translations: [Dyslipidemia] Onset: 2 08-11-2023 Chronic Esophageal disorders (4 sources) Gastroesophageal reflux disease; Translations: [Gastroesophageal reflux disease without esophagitis] Onset: 4 09-06-2023 Chronic Essential hypertension (11 sources) Essential (primary) hypertension; Translations: [Benign essential hypertension] Onset: 2 08-11-2023 Chronic Miscellaneous mental health disorders (7 sources) Psychophysiologic insomnia; Translations: [Primary insomnia] Onset: 2 08-11-2023 Chronic Mood disorders (2 sources) 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 features; Translations: [Major depressive disorder, recurrent severe without psychotic features] 04-12-2024 Chronic Osteoarthritis (7 sources) Primary gonarthrosis, bilateral; Translations: [Bilateral primary osteoarthritis of knee] Onset: 4 08-11-2023 Chronic Other aftercare (4 sources) Patient encounter status; Translations: [Other anesthetic assistant (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 therapy] Onset: 4 08-11-2023 Episodic Other gastrointestinal disorders (5 sources) Dysphagia; Translations: [Dysphagia, unspecified] Onset: 4 Episodic Other nervous system disorders (2 sources) Chronic pain; Translations: [Other chronic pain] 04-12-2024 Chronic Other nervous system disorders (2 sources) Word finding difficulty ; Translations: [Other speech disturbances] 04-12-2024 Episodic Other nutritional; endocrine; and metabolic disorders [...] Chronic Other nutritional; endocrine; and metabolic disorders (9 sources) Morbid obesity; Translations: [Morbid (severe) obesity due to excess calories] Onset: 4 08-11-2023 Chronic Other nutritional; endocrine; and metabolic disorders (2 sources) Body mass index 40+ - severely obese; Translations: [Body mass index (BMI) 40.0-44.9, adult] 08-11-2023 Chronic Other nutritional; endocrine; and metabolic disorders (3 sources) Body mass index 30+ - obesity 09-12-2023 Chronic Other nutritional; endocrine; and metabolic disorders (2 sources) Obesity caused by energy imbalance; Translations: [Other obesity due to excess calories] Onset: 4 03-03-2024 Chronic Other screening for suspected conditions (not mental disorders or infectious disease) (8 sources) Encounter for screening mammogram for malignant neoplasm of breast; Translations: [Patient encounter status] Onset: 2 Episodic Other upper respiratory disease (6 sources) Allergic rhinitis due to pollen; Translations: [Allergic rhinitis due to pollen] Onset: 4 08-11-2023 Chronic Other upper respiratory disease (3 sources) Seasonal allergic rhinitis 09-06-2023 Chronic Residual codes; unclassified (1 source) Obstructive sleep apnea (adult) (pediatric); Translations: [OBSTRUCTIVE SLEEP APNEA] Onset: 2 Chronic Residual codes; unclassified (9 sources) Obstructive sleep apnea syndrome; Translations: [Obstructive sleep apnea (adult) (pediatric)] Onset: 4 08-11-2023 Chronic Residual codes; unclassified (3 sources) Sleep apnea 03-03-2021 Chronic Residual codes; unclassified (2 sources) Insomnia; Translations: [Other insomnia] 04-12-2024 Chronic Residual codes; unclassified (2 sources) Hypersomnia; Translations: [Hypersomnia, unspecified] Onset: 4 03-03-2024 Chronic Residual codes; unclassified (3 sources) Insomnia 09-06-2023 Episodic Residual codes; unclassified (2 sources) Amnesia; Translations: [Other amnesia] 04-12-2024 Episodic Screening and history of mental health and substance abuse codes (5 sources) Personal history of nicotine dependence; Translations: [PERSONAL HISTORY OF NICOTINE DEPEND] Onset: 2 Episodic Transient cerebral ischemia (8 sources) Transient cerebral ischemia; Translations: [Transient cerebral [...] Date Documented Da te Episodic/Chronic Abdominal hernia (15 sources) Diaphragmatic hernia without obstruction or gangrene; Translations: [Gastroesophageal reflux disease with hiatal hernia] Onset: 09-16-2021 08-11-2023 Episodic Complication of device; implant or graft (2 sources) Pain due to internal orthopedic prosthetic devices, implants and grafts, initial encounter; Translations: [Other specified complication of internal orthopedic prosthetic devices, implants and grafts, initial encounter] Onset: 09-16-2021 Episodic Diabetes mellitus without complication (2 sources) Prediabetes; Translations: [Prediabetes] Onset: 08-13-2023 08-13-2023 Episodic Fracture of lower limb (5 sources) [...] 02-23-2022 Episodic Other aftercare (1 source) Other correction (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 therapy; Translations: [OTH RESIDENTIAL CURRENT DRUG THERAPY] Onset: 02-23-2022 Episodic Other aftercare (1 source) manager fine dining (current) use of aspirin; Translations: [RESIDENTIAL CURRENT USE OF ASPIRIN] Onset: 02-23-2022 Episodic Other aftercare (2 sources) Long-term current use of drug therapy; Translations: [Other correction (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 therapy] Onset: 08-11-2023 08-11-2023 Episodic Other bone disease and musculoskeletal deformities (1 source) Other specified disorders of bone density and structure, other site; Translations: [OTH D/O BONE DEN STRUCT OTH SITE] Onset: 09-16-2021 Episodic Other bone disease and musculoskeletal deformities (5 sources) Osteopenia; Translations: [Other specified disorders of bone density and structure, other site] Onset: 08-11-2023 08-11-2023 Episodic Other circulatory disease (1 source) Personal [...] Translations: [ASYMPTOMATIC MENOPAUSAL STATE] Onset: 09-16-2021 Episodic Residual codes; unclassified (8 sources) Edema of lower extremity; Translations: [Localized edema] Onset: 08-11-2023 08-11-2023 Episodic Spondylosis; intervertebral disc disorders; other back problems (1 source) Lumbago with sciatica, left side; Translations: [LUMBAGO WITH SCIATICA LEFT SIDE] Onset: 09-16-2021 Episodic Unclassified (1 source) COUGH, UNSPECIFIED; Translations: [COUGH, UNSPECIFIED] Onset: 02-22-2022 Results Test Name Value Interpretation Reference Range Facility Surgical Pathology Reporton 03-26-2024 Surgical Pathology Report [address] [address]- Surgical Pathology Report Collected Date/Time: 03/20/2024 12:52 EDT Pathologist: Pete Evans MD Received Date/Time: 03/21/2024 08:07 EDT Yovanny OLIVO, Katie Hairston MD, Katie Valentin Surgical Pathology Report - 03/26/2024 18:15 EDT [...] is entirely submitted in one cassette. (DC) DC:[facility] Microscopic Description Microscopic examination performed unless gross only specified. The use of one or more reagents in the above tests is regulated as an analyte specific reagent (ASR). The test or tests are ordered following initial H&E microscopic examination. The performance characteristics were determined by the Laboratory of [facility]. They have not been cleared or approved by the US Food and Drug Administration. The FDA has determined that such clearance or approval is not necessary. These tests are used for clinical purposes. They should not be regarded as investigational or for research. Appropriate positive and negative controls are performed and are acceptable. Normal [facility] Comment on above: Performed By: #### [id number] #### [facility] [address] [place] [address] XR Esophaguson 03-26-2024 XR Esophagus Exam Date/Time: [...] mGy = 15.80 DAP = 464.17 Normal [facility] Main OR Intraoperative Recor don 03-22-2024 Main OR Intraoperative Record Main OR Intraoperative Record IntraOp Document Type FT Summary Primary Physician: Katie Hairston MD Finalized Date/Time: 03/22/24 14:46:15 Pt. Name: SHEY BOSS/Sex: 1950 Female Med Rec #: [id number] Physician: Katie Hairston MD Financial #: [id number] Pt. Type: O Room/Bed: / Admit/Disch: 03/20/24 10:57:44 - 03/20/24 23:59:59 Institution: Case Times FT Entry 1 Patient Times In Room 03/20/24 12:44:00 Out Room 03/20/24 12:56:00 Procedure Times Start 03/20/24 12:49:00 Stop 03/20/24 12:53:00 Anesthesia Times Start 03/20/24 12:44:00 Stop 03/20/24 12:56:00 Last Modified By: Essence Lopez RN 03/20/24 12:56:30 General Comments: 03/22/24 Chart opened to review and send charges LRoth CSFA Case Attendance FT Entry 1 Entry 2 Entry 3 Case Attendee Catalina Wolff CRNA, CST, Анна Hairston MD, Katie Torres Role Performed BEAD FORMING MACHINE SET UP OPERATOR Scrub - Primary Surgeon - Primary Time In 03/20/24 12:44:00 03/20/24 12:44:00 03/20/24 12:44:00 Time Out 03/20/24 12:56:00 03/20/24 12:56:00 03/20/24 12:56:00 Procedure EGD(.) EGD(.) EGD(.) Comments Dr. Hairston supervising procedure. Last Modified By: Mynor FORBES, Violette Lopez RN, Essence Pinto RN 03/22/24 14:45:45 03/20/24 12:56:36 03/20/24 12:56:36 Entry 4 Case Attendee Essence Lopez RN Role Performed Attendant [employer] - Primary Time In 03/20/24 12:44:00 Time [...] Time Out Catalina Wolff CRNA, Given Participants Dianelys FORBES, Yovanny Ellington MD, Katie Torres, Essence Lopez RN Time [...] and tissue Entry 1 Skin Integrity Intact, [place], Warm, & Skin Abnormality No Dry Outcomes [...] Extended Positioning (more content not included)... Normal [facility] Discharge Instructionson Discharge Instructions Discharge Instructions SHEY [...] mg Tab) fluticasone nasal (Flonase 0.05 mg/inh [place]) losartan (losartan 25 mg Tab) multivitamin with [...] after Discharge Follow Up with Yovanny OLIVO, Katie Torres, G[facility], [facility] When: Comments: Call for any problems. Office [...] Unchanged fluticasone nasal (Flonase 0.05 mg/ inh [place]) 2 Sprays Nasal Inhalation Every day Unchanged [...] get better (more content not included)... Normal [facility] Comment on above: Result Comment: Elec tronically Signed By: Kassy Barker I\.br\Date and Time Signed: 03/20/24 13:08 EDT Inpatient Patient Summaryon 03-20-2024 Inpatient Patient Summary Inpatient Patient Summary [place] [address] [facility] Clinical Discharge Instructions PERSON INFORMATION Name: SHEY BOSS [facility]#:[id number] PHYSICIANS Admitting Physician: Katie Hairston MD Attending Physician: Katie Hairston MD PCP: LATRELL JACK MD Discharge Diagnosis: Comment: PATIENT EDUCATION INFORMATION Instructions: Medication [...] (at bedtime). fluticasone nasal (Flonase 0.05 mg/inh [place]) 2 Sprays Nasal Inhalation every day. losartan [...] bedtime) as needed for sleep. Comment: Normal [facility] Main OR PACU I Recordon 03-10 Main OR PACU I Record Main OR PACU I Record PACU Phase I Document Type FT Summary Primary Physician: Katie Hairston MD Finalized Date/Time: 03/20/24 13:37:02 Pt. Name: SHEY BOSS /Sex: 1950 Female Med Rec #: [id number] Physician: Katie Hairston MD Financial #: [id number] Pt. Type: O Room/Bed: / Admit/Disch: 03/20/24 [...] By: Kassy Barker I 03/20/24 13:37 Normal [facility] Main OR Preoperative Recordo n 03-20-2024 Main OR Preoperative Record Main OR Preoperative Record Holding Area Document Type FT Summary Primary Physician: Katie Hairston MD Finalized Date/Time: 03/20/24 11:17:32 Pt. Name: SHEY BOSS/Sex: 1950 Female Med Rec #: [id number] Physician: Katie Hairston MD Financial #: [id number] Pt. Type: O Room/Bed: / Admit/Disch: 03/20/24 [...] By: Essence Lopez RN 03/20/24 11:17 Normal [facility] Outpatient Surgery Discharge Instructionon 03-20-2024 Outpatient Surgery Discharge Instruction Outpatient Surgery Discharge Instruction [place] [id number] Patient Discharge Instructions PERSON INFORMATION Name: SHEY [...] Information: You may receive a survey from [email or web address] asking you to rate your care experience. Your feedback is important and will help us understand what we do well and how we can improve the quality of care we provide to you, your loved ones and our community. It?s an honor to serve you. Thank you for choosing [facility] HERE ARE THE MEDICATION CHANGES THAT OCCURRED [...] (at bedtime). fluticasone nasal (Flonase 0.05 mg/inh [place]) 2 Sprays Nasal Inhalation every day. losartan [...] sleep. PATIENT EDUCATION INFORMATION Instructions: Medication Leaflets: [facility] Proceduralon 03-20-2024 Procedural Procedural Patient: SHEY BOSS Age: 73 years Sex: Female : 1950 Associated Diagnoses: None Author: Ganga OLIVO, Daquan Olea Postoperative Information Postoperative disposition: Postoperative disposition: To PACU. Optimetrix number: Optimetrix number [id number]. Anesthetic utilized: General. Health Status Allergies: Allergic [...] meets criteria ( To home ). Normal [facility] Procedural Procedural Patient: SHEY BOSS Age: 73 [...] 1 tab, Oral, Daily Flonase 0.05 mg/inh [place]: 2 spray(s), Nasal, Daily, Refill(s) 0, Dry [...] a day (at bedtime) Flonase 0.05 mg/inh [place] 2 spray(s), Nasal, Daily losartan 25 mg [...] All Problems BMI 39.0-39.9,adult / SNOMED CT 175008830 / Confirmed Chronic obstructive pulmonary disease / SNOMED CT 09494141 / Confirmed Dyslipidemia / SNOMED CT 1488210637 / Confirmed Dysphagia / SNOMED CT 04702163 / Confirmed GERD (gastroesophageal reflux disease) / SNOMED CT 965581342 / Confirmed Hiatal hernia / SNOMED CT 330901958 / Confirmed HTN (hypertension) / SNOMED CT 6774679812 / Confirmed Insomnia / SNOMED CT 344766716 / Confirmed Lower extremity edema / SNOMED CT 766813554 / Confirmed Morbid obesity / SNOMED CT 810116762 / Confirmed EDWIN (obstructive sleep apnea) / SNOMED CT 495990708 / Confirmed Screening for malignant neoplasm of colon / SNOMED CT 955935566 / Confirmed Seasonal allergic rhinitis / SNOMED CT 576625820 / Confirmed TIA (transient ischemic attack) / SNOMED CT 097525692 / Confirmed Resolved: At risk for falls / SNOMED CT 475089130 Problem added when Risk for Falls Careplan was initiated. Resolved due to patient discharge. Resolved: Hernia / SNOMED CT 014165309 Resolved: Potential for deficient knowledge of cerebrovascular accident (CVA) / IMO [id number] problem added based on Stroke Powerplan ordered. Resolved due to patient discharge. Resolved: Sleep apnea / SNOMED CT 808237176, Active Problems (14) BMI 39.0-39.9,adult Chronic obstructive pulmonary disease Dyslipidemia Dysphagia GERD (gastroesophageal reflux disease) Hiatal hernia HTN (hypertension) Insomnia Lower extremity edema Morbid obesity EDWIN (obstructive sleep apnea) Screening for malignant neoplasm of colon Seasonal allergic rhinitis TIA (transient ischemic (more content not included)... Normal [facility] Ambulatory Visit Summaryon 0 02-26-2024 Ambulatory Visit [...] mg Tab) fluticasone nasal (Flonase 0.05 mg/inh [place]) losartan (losartan 25 mg Tab) multivitamin with [...] Unchanged fluticasone nasal (Flonase 0.05 mg/ inh [place]) 2 Sprays Nasal Inhalation Every day Contact [...] you for choosing us for your care. Kary Jernigan [facility] Gastroenterology Office/Clin ic Noteon 02-26-2024 Gastroenterology Office/Clinic [...] or gangrene) reports she had esophagram in [place] no egd in the past declined surgery [...] a day (at bedtime) Flonase 0.05 mg/inh [place], 2 spray(s), Nasal, Daily losartan 25 mg [...] virus vaccine, inactivated 05/03/2022 Recorded SARS-CoV-2 (COVID-19) [id number] 05/03/2022 Recorded influenza virus vaccine, inactivated 04/12/2021 [...] influenza virus vaccine, inactivated 04/16/2015 Recorded Normal [facility] Comment on above: Result Comment: Elec tronically Signed By: Yovanny OLIVO, Katie Torres\.br\Date and Time Signed: 02/26/24 09:38 EDT IntraOperative Documentson 0 10-19-2023 IntraOperative Documents [id number] 0TIFF Normal [facility] Consenton 10-16-2023 Consent [id number] TIFF Normal [facility] Discharge Instructionson Discharge Instructions [id number] TIFF Normal [facility] Main OR Intraoperative Recor don 10-16-2023 Main OR Intraoperative Record IntraOp Document Type FT Summary Primary Physician: Pa WEBB MD Finalized Date/Time: 10/16/23 09:46:21 Pt. Name: SHEY BOSS Tamie/Sex: 1950 Female Med Rec #: [id number] Physician: Pa WEBB MD Financial #: [id number] Pt. 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 Normal [facility] Postoperative Documentson Postoperative Documents [id number] TIFF Normal [facility] Reminderson 10-16-2023 Reminders - From: Nhi Aguirre LPN To: GSN - Clinical; Sent: 10/16/2023 10:15:48 EDT Show up: 09/11/2033 07:00:00 EST Subject: colonoscopy recall Due Date/Time: 10/12/2033 07:00:00 EDT Reminder/Recall Patient due for screening colonoscopy 10/12/2033. Normal [facility] Colonoscopy Procedure Report on 10-13-2023 Colonoscopy Procedure [...] for screening for malignant neoplasm of rectum (LTP53-MA Z12.12, Discharge, Medical). Course: Progressing as expected. Recommendations: Repeat colonoscopy:: In 10 years. Follow-up:: if problems/questions. Diet:: Regular diet. Medication resumption:: Continue current medications. Return to activities:: After 24 hours. Education and Follow-up: Counseled: Family. [facility] Comment on above: Other Comment: Samreen dueñas Attachment - attachment storage system not supported [id number] Can be viewed in source systemMissing Attachment - attachment storage system not supported [id number] Can be viewed in source systemMissing Attachment - attachment storage system not supported [id number] Can be viewed in source systemMissing Attachment - attachment storage system not supported [id number] Can be viewed in source systemMissing Attachment - attachment storage system not supported [id number] Can be viewed in source system Consent for Treatmenton Consent for Treatment [id number] IFF [facility] Discharge Instructionson Discharge Instructions SHEY BOSS :1950 [...] mg Tab) fluticasone nasal (Flonase 0.05 mg/inh [place]) losartan (losartan 25 mg Tab) multivitamin with [...] Pa WEBB When: Only if needed Where: [facility] Matt Mcnally, [facility] [address] [place] [phone]- [place] (1) Medications What How Much When Instructions [...] Unchanged fluticasone nasal (Flonase 0.05 mg/ inh [place]) 2 Sprays Nasal Inhalation Every day Unchanged [...] as instru (more content not included)... Normal [facility] Comment on above: Result Comment: Elec tronically Signed By: Marcy FORDE, Mariaelena\.br\Date and Time Signed: 10/13/23 09:33 EDT Inpatient Patient Summaryon 10-13-2023 Inpatient Patient Summary [address] [address] [facility] Clinical Discharge Instructions PERSON INFORMATION Name: SHEY BOSS [facility]#:[id number] PHYSICIANS Admitting Physician: Pa WEBB MD Attending Physician: Pa WEBB MD PCP: LATRELL JACK MD Discharge Diagnosis: Encounter for colorectal cancer screening; Encounter for screening for malignant neoplasm of rectum Comment: PATIENT EDUCATION INFORMATION Instructions: Medication Leaflets: Follow up: With: Address: When: Pa WEBB [address] [place] [address], [facility] [address], [place] [phone] Business (1) , only if needed MEDICATION [...] (at bedtime). fluticasone nasal (Flonase 0.05 mg/inh [place]) 2 Sprays Nasal Inhalation every day. losartan [...] (at bedtime) as needed for sleep. Comment: Kary [facility] Main OR PACU I Recordon Main OR PACU I Record PACU Phase I Document Type FT Summary Primary Physician: Pa WEBB MD Finalized Date/Time: 10/13/23 09:54:27 Pt. Name: KARYNSHEY/Sex: 1950 Female Med Rec #: [id number] Physician: Pa WEBB MD Financial #: [id number] Pt. Type: O Room/Bed: / Admit/Disch: 10/13/23 [...] By: Mariaelena Vidal RN 10/13/23 09:54 Normal [facility] Main OR Preoperative Recordo n 10-13-2023 Main OR Preoperative Record Holding Area Document Type FT Summary Primary Physician: Pa WEBB MD Finalized Date/Time: 10/13/23 08:06:06 Pt. Name: KARYNSHEY/Sex: 1950 Female Med Rec #: [id number] Physician: Pa WEBB MD Financial #: [id number] Pt. Type: O Room/Bed: / Admit/Disch: 10/13/23 [...] Signed By: Olivia Domínguez 10/13/23 08:06 Normal [facility] Monitor Recordon 10-13-2023 Monitor Record [id number] TIFF Normal [facility] Monitor Record [id number] TIFF Normal [facility] Outpatient Surgery Discharge Instructionon 10-13-2023 Outpatient Surgery Discharge Instruction [place] [id number] Patient Discharge Instructions PERSON INFORMATION Name: SHEY [...] THE NEAREST EMERGENCY ROOM OR CALL 911 KARYN Jimenez SHARON, have received the attached patient education materials/instructions and have verbalized understanding: May we do a follow up call? Yes No I was present when discharge instructions were given Patient Signature Date Clinican/Nurse Signature _ Date Follow up: With: Address: When: Pa [address], [address], [place] [phone] Business (1) , only if needed Pharmacy [...] to serve you. Thank you for choosing [facility] HERE ARE THE MEDICATION CHANGES THAT OCCURRED [...] (at bedtime). fluticasone nasal (Flonase 0.05 mg/inh [place]) 2 Sprays Nasal Inhalation every day. losartan [...] sleep. PATIENT EDUCATION INFORMATION Instructions: Medication Leaflets: [facility] Patient Education - Texton 0 10-13-2023 Patient [...] severe or gets worse throughout the day. Normal [facility] Progress Note-Physicianon Progress Note-Physician Patient: SHEY BOSS Age: 73 years Sex: Female : 1950 Associated Diagnoses: None Author: Shaji Bethea Jr., DO Postoperative Information Postoperative disposition: Postoperative disposition: Home. Optimetrix number: Optimetrix number [id number]. Anesthetic utilized: General. Physical Examination Vital Signs [...] Surgery Unit, and To home ). Normal [facility] Comment on above: Result Comment: Elec tronically [...] m2 Documented Medications Documented Flonase 0.05 mg/inh [place]: 2 spray(s), Nasal, Daily, Refill(s) 0, Dry [...] a day (at bedtime) Flonase 0.05 mg/inh [place] 2 spray(s), Nasal, Daily losartan 25 mg [...] All Problems BMI 39.0-39.9,adult / SNOMED CT 605263355 / Confirmed Chronic obstructive pulmonary disease / SNOMED CT 06978281 / Confirmed Dyslipidemia / SNOMED CT 5480956138 / Confirmed GERD (gastroesophageal reflux disease) / SNOMED CT 928316661 / Confirmed Hiatal hernia / SNOMED CT 274860276 / Confirmed HTN (hypertension) / SNOMED CT 3475696203 / Confirmed Insomnia / SNOMED CT 131022385 / Confirmed Lower extremity edema / SNOMED CT 987763615 / Confirmed Morbid obesity / SNOMED CT 360645229 / Confirmed EDWIN (obstructive sleep apnea) / SNOMED CT 885183815 / Confirmed Screening for malignant neoplasm of colon / SNOMED CT 810473817 / Confirmed Seasonal allergic rhinitis / SNOMED CT 791200298 / Confirmed TIA (transient ischemic attack) / SNOMED CT 105662773 / Confirmed Resolved: At risk for falls / SNOMED CT 834642459 Problem added when Risk for Falls Careplan was initiated. Resolved due to patient discharge. Resolved: Hernia / SNOMED CT 541074441 Resolved: Potential for deficient knowledge of cerebrovascular accident (CVA) / IMO 38706775 problem added based on Stroke Powerplan ordered. Resolved due to patient discharge. Resolved: Sleep apnea / SNOMED CT 246310387 Histories Past Medical History: Resolved Hernia (159197077): Resolved. Sleep apnea (947858070): Resolved. Procedure history: ORIF - Open reduction of fracture of ankle with internal fixation (805293167088827). Meniscal repair (344720974). Tonsillectomy (310658871). Hand tendon repaired (226529643). Social History Social & Psychosocial Habits Alcohol 09/12/2023 Frequency: 1-2 times per year Substance Abuse Comment: denies - 03/03/2021 07:19 - Carolyn Stewart RN 09/12/2023 Risk Assessment: Denies Substance Abuse Tobacco 09/12/2023 Tobacco Use: Former smoker, quit more Smokeless tobacco use: Never Type: Cigarettes . Physical Examination Vital Signs 10/13/2023 8:03 EDT Temperature Temporal Artery 36.3 DegC (more content not included)... Normal [facility] Comment on above: Result Comment: Elec tronically Signed By: Shaji Bethea Jr., DO\.maikol\Date and Time Signed: 10/13/23 08:04 EDT Consent for Procedure/Surger yon 09-13-2023 Consent for Procedure/Surgery [id number]#[id number] FF Normal [facility] Ambulatory Visit Summaryon 0 09-12-2023 Ambulatory Visit Summary SHEY BOSS :1950 Visit Date:09/12/2023 Ambulatory Visit Instructions Your Diagnosis BMI 39.0-39.9,adult Your Care Team Attending Physician - TRACEY OLIVO, Pa Vivas Primary Care Physician - GUERO OLIVO, LATRELL Referring Physician - GUERO OLIVO, LATRELL This Is Your Medications List Contact prescribing physician if questions or concerns aspirin (aspirin 81 mg Oral EC Tab) atorvastatin (atorvastatin 40 mg Tab) cholecalciferol (Vitamin D3 1000 intl units (25 mcg) Tab) famotidine (famotidine 40 mg Tab) fluticasone nasal (Flonase 0.05 mg/inh [place]) losartan (losartan 25 mg Tab) multivitamin with [...] Unchanged fluticasone nasal (Flonase 0.05 mg/ inh [place]) 2 Sprays Nasal Inhalation Every day Contact [...] you for choosing us for your care. [facility] Provider Letteron 08-25-2023 Provider Letter (Inserted Image. Celia ble to display) August 25, 2023 SHEY BOSS [address] [place] [id number] : 1950 Dear Ms. Boss, We have been trying to reach you with no success regarding a referral from Dr Jack. It is important that you return our call upon receiving this letter so that we can set up an appointment for you in either our [place] or [place] office. Also, at the time of your call, please provide us with your current demographic and insurance information. Thank you for your prompt attention to this matter. Sincerely, [facility] General Surgery [phone] [facility] Physician Referralon 024 Physician Referral [id number]#[id number] IFF Normal [facility] CT LUNG CANCER SCREENINGon 0 07-28-2022 [...] MEHNAZ SANTIAGO Date: 2022-07-28 15:28 Normal [facility] BNPon 02-22-2022 Natriuretic peptide B (Bld) [Mass/Vol] 108.0 pg/mL Normal <=900.0 [facility] Comment on above: Performed By: #### B MP, BNP, HSTROPN ####[facility] [address] [place] [address]DrMichelle Trujillo CBC AUTO DIFFon 02-22-2022 BASO # 0.0 103/ul Normal 0.0-0.1 [facility] Comment on above: Performed By: #### C BC ####[facility] [address] [address] [id number]. Felisa Trujillo Basophils/100 WBC (Bld) 0.7 % Normal 0.2-2.0 [facility] Comment on above: Performed By: #### C BC ####[facility] [address] [place] [address]Dr. Felisa Trujillo EO # 0.1 103/ul Normal 0.0-0.7 [facility] Comment on above: Performed By: #### C BC ####[facility] [address] [place], [place] [address]Dr. Felisa Trujillo Eosinophils/100 WBC (Bld) 1.4 % Normal 0.9-7.0 [facility] Comment on above: Performed By: #### C BC ####[facility] [address] [place], [place] [address]Dr. Felisa Trujillo Erythrocyte distribution width (RBC) [Ratio] 13.2 % Normal 11.0-15.0 [facility] Comment on above: Performed By: #### C BC ####[facility] [address] [place], [place] [address]Dr. Felisa Trujillo Hematocrit (Bld) [Volume fraction] 36.6 % Normal 36.0-48.0 [facility] Comment on above: Performed By: #### C BC ####[facility] [address] [place], [place] [address]Dr. Felisa Trujillo Hemoglobin (Bld) [Mass/Vol] 12.7 g/dL Normal 12.0-16.0 [facility] Comment on above: Performed By: #### C BC ####[facility] [address] [place], [place] [address]Dr. Felisa Trujillo IG # 0.01 10e3/ul Normal 0.00-0.03 [facility] Comment on above: Performed By: #### C BC ####[facility] [address] [place], [place] [address]Dr. Felisa Trujillo IG % 0.2 % Normal 0.0-0.5 [facility] Comment on above: Performed By: #### C BC ####[facility] [address] [place] [address]Dr. Krystakun Trujillo LYMPH # 1.0 103/ul Critically low 1.2-3.8 [facility] Comment on above: Performed By: #### C BC ####[facility] [address] [place] [address]Dr. Krsytakun Trujillo Lymphocytes/100 WBC (Bld) 22.3 % Normal 20.5-60.0 [facility] Comment on above: Performed By: #### C BC ####[facility] [address] [place] [address]Dr. Felisa Trujillo MANUAL DIFF REQ NO Normal [facility] Comment on above: Performed By: #### C BC ####[facility] [address] [place] [address]Dr. Krystakun Trujillo MCH (RBC) [Entitic mass] 31.8 pg Normal 26.7-34.0 [facility] Comment on above: Performed By: #### C BC ####[facility] [address] [place], [place] [address]Dr. Felisa Ronnie MCHC (RBC) [Mass/Vol] 34.7 g/dL Normal 29.9-35.2 [facility] Comment on above: Performed By: #### C BC ####[facility] [address] [place], [place] [address]Dr. Felisa Trujillo MCV (RBC) [Entitic vol] 91.7 fL Normal 81.0-99.0 [facility] Comment on above: Performed By: #### C BC ####[facility] [address] [place], [place] [address]Dr. Felisa Trujillo MONO # 0.5 103/ul Normal 0.3-0.8 [facility] Comment on above: Performed By: #### C BC ####[facility] [address] [place], [place] [address]Dr. Felisa Trujillo Monocytes/100 WBC (Bld) 11.7 % Normal 1.7-12.0 [facility] Comment on above: Performed By: #### C BC ####[facility] [address] [place], [place] [address]Dr. Felisa Trujillo NEUT # 2.7 103/ul Normal 1.4-6.5 [facility] Comment on above: Performed By: #### C BC ####[facility] [address] [place] [address]Dr. Felisa Trujillo Neutrophils/100 WBC (Bld) 63.7 % Normal 43.0-75.0 [facility] Comment on above: Performed By: #### C BC ####[facility] [address] [place] [address]Dr. Felisa Trujillo Platelet mean volume (Bld) [Entitic vol] 10.2 fL Normal 9.5-13.5 [facility] Comment on above: Performed By: #### C BC ####[facility] [address] [place] [address]Dr. Felisa Trujillo PLT 149 103/ul Critically low 150-450 [facility] Comment on above: Performed By: #### C BC ####[facility] [address] [place] [address]Dr. Felisa Trujillo RBC 3.99 106/ul Critically low 4.20-5.40 [facility] Comment on above: Performed By: #### C BC ####[facility] [address] [place] [address]Dr. Felisa Trujillo WBC 4.3 103/ul Normal 4.0-11.0 [facility] Comment on above: Performed By: #### C BC ####[facility] [address] [place] [address]Dr. Felisa Trujillo Covid-19 PCR (CVDTB)on 02-07 SARS-CoV-2 (COVID-19) RNA DUGLAS+probe Ql (Unsp spec) Detected Critically abnormal NOT DETECTED [facility] Comment on above: Result Comment: This test is not yet approved or cleared by the [place] FDA. When there are no FDA-approved or cleared tests available, and other criteria are met, FDA can make tests available under an emergency access mechanism called an Emergency Use Authorization (EUA). The EUA for this test is supported by the [place] of Health and Human Service's declaration that [...] longer be used). Performed By: #### C VDTB ####[facility] [address] [place], [place] [address]Dr. Felisa Trujillo PROF CHEM 8 (BAS METB)on Anion gap [Moles/Vol] 14.9 mmol/L Normal [facility] Comment on above: Performed By: #### B MP, BNP, HSTROPN ####[facility] [address] [place], [place] [address]Dr. Felisa Trujillo Calcium [Mass/Vol] 8.9 mg/dL Normal 8.5-10.1 [facility] Comment on above: Performed By: #### B MP, BNP, HSTROPN ####[facility] [address] [place], [place] [address]Dr. Felisa Trujillo Chloride [Moles/Vol] 104 mmol/L Normal 98-107 [facility] Comment on above: Performed By: #### B MP, BNP, HSTROPN ####[facility] [address] [place], [place] [address]Dr. Felisa Trujillo CO2 [Moles/Vol] 24.0 mmol/L Normal 21.0-32.0 [facility] Comment on above: Performed By: #### B MP, BNP, HSTROPN ####[facility] [address] [place], [place] [address]Dr. Felisa Trujillo Creatinine [Mass/Vol] 0.98 mg/dL Normal 0.55-1.02 [facility] Comment on above: Performed By: #### B MP, BNP, HSTROPN ####[facility] [address] [place], [place] [address]Dr. Felisa Trujillo EGFR-AF BELGIAN >60 Normal >=60 [facility] Comment on above: Performed By: #### B MP, BNP, HSTROPN ####[facility] [address] [place] [address]Dr. Felisa Trujillo EGFR-NON AF BELGIAN 56 mL/min/1.73m2 Critically low >=60 [facility] Comment on above: Performed By: #### B MP, BNP, HSTROPN ####[facility] [address] [place] [address]Dr. Felisa Trujillo Glucose [Mass/Vol] 136 mg/dL Critically high 74-106 [facility] Comment on above: Performed By: #### B MP, BNP, HSTROPN ####[facility] [address] [place] [address]Dr. Felisa Trujillo Potassium [Moles/Vol] 3.9 mmol/L Normal 3.5-5.1 [facility] Comment on above: Performed By: #### B MP, BNP, HSTROPN ####[facility] [address] [place] [address]Dr. Felisa Trujillo Sodium [Moles/Vol] 139 mmol/L Normal 136-145 [facility] Comment on above: Performed By: #### B MP, BNP, HSTROPN ####[facility] [address] [place] [address]Dr. Felisa Trujillo Urea nitrogen [Mass/Vol] 14.0 mg/dL Normal 7.0-18.0 [facility] Comment on above: Performed By: #### B MP, BNP, HSTROPN ####[facility] [address] [place] [address]Dr. Felisa Trujillo Urea nitrogen/Creatinine [Mass ratio] 14.3 mg/mg Normal [facility] Comment on above: Performed By: #### B MP, BNP, HSTROPN ####[facility] [address] [place], [place] [address]Dr. Felisa Trujillo TROPONIN, HIGH SENSITIVITYon 02-22-2022 HSTROP 5.9 pg/mL Normal 4.0-51.3 [facility] Comment on above: Result Comment: CUT- OFF POINTS HAVE BEEN ESTABLISHED BASED ON THE FOURTH UNIVERSAL DEFINITIONS OF MYOCARDIAL INFARCTION. THE UPPER REFERENCE LIMIT (URL) OF TROPONIN, DEFINED THE 99TH PERCENTILE OF cTnI DISTRIBUTION IN A REFERENCE POPULATION, HAS BEEN CONFIRMED THE DECISION THRESHOLD FOR OK DIAGNOSIS. Performed By: #### B MP, BNP, HSTROPN ####[facility] [address] [place], [place] [address]RnMichelle Trujillo XR CHEST 1 Von 02-22-2022 XR [...] MEHNAZ SANTIAGO Date: 2022-02-22 13:30 Normal [facility] MAMM SCREEN 3D RONALD CADon 11-11-2021 MAMM SCREEN 3D RONALD CAD Patient: SHEY BOSS Exam Date: 11/11/2021 : 1950 Gender:F Ordering : DR LATRELL JACK . Admission #: [id number] Family : Order #: [id number] CLICK HERE TO VIEW EXAM RADIOLOGY REPORT PROCEDURE: MAMMOGRAM SCREENING 3D BILATERAL CAD COMPARISON: MAMM SCREEN 3D RONALD CAD, 11/05/2020. INDICATIONS: Screening mammography Calculator Name NCI Breast Cancer Risk Assessment Tool 5 Year Breast Cancer Risk 1.90% Lifetime Breast Cancer Risk 5.60% Personal Breast Cancer No Personal Ovarian Cancer No Treatments None Family Cancers Father with lung cancer at age 45. LOCATION: [facility] BREAST COMPOSITION: Almost entirely fatty. [...] MD on 11/11/2021 at 13:04 Normal [facility] BNPon 11-02-2021 Natriuretic peptide B (Bld) [Mass/Vol] 42.0 pg/mL Normal <=900.0 [facility] Comment on above: Performed By: #### H STROPN, CMP, BNP #### [facility] [address] [place] [address] Dr. Felisa Trujillo CBC AUTO DIFFon 11-02-2021 BASO # 0.1 103/ul Normal 0.0-0.1 [facility] Comment on above: Performed By: #### C BC #### [facility] [address] [place] [address] Dr. Felisa Trujillo Basophils/100 WBC (Bld) 0.8 % Normal 0.2-2.0 [facility] Comment on above: Performed By: #### C BC #### [facility] [address] [place] [address] Dr. Felisa Trujillo EO # 0.3 103/ul Normal 0.0-0.7 [facility] Comment on above: Performed By: #### C BC #### [facility] [address] [place] [address] Dr. Felisa Trujillo Eosinophils/100 WBC (Bld) 3.9 % Normal 0.9-7.0 [facility] Comment on above: Performed By: #### C BC #### [facility] [address] [place] [address] Dr. Felisa Trujillo Erythrocyte distribution width (RBC) [Ratio] 12.7 % Normal 11.0-15.0 [facility] Comment on above: Performed By: #### C BC #### [facility] [address] [place] [address] Dr. Felisa Trujillo Hematocrit (Bld) [Volume fraction] 40.2 % Normal 36.0-48.0 [facility] Comment on above: Performed By: #### C BC #### [facility] [address] [place] [address] Dr. Felisa Trujillo Hemoglobin (Bld) [Mass/Vol] 13.6 g/dL Normal 12.0-16.0 [facility] Comment on above: Performed By: #### C BC #### [facility] [address] [place] [address] Dr. Felisa Trujillo IG # 0.02 10e3/ul Normal 0.00-0.03 [facility] Comment on above: Performed By: #### C BC #### [facility] [address] [place] [address] Dr. Felisa Trujillo IG % 0.3 % Normal 0.0-0.5 [facility] Comment on above: Performed By: #### C BC #### [facility] [address] [place] [address] Dr. Felisa Trujillo LYMPH # 1.9 103/ul Normal 1.2-3.8 [facility] Comment on above: Performed By: #### C BC #### [facility] [address] [place] [address] Dr. Felisa Trujillo Lymphocytes/100 WBC (Bld) 30.0 % Normal 20.5-60.0 [facility] Comment on above: Performed By: #### C BC #### [facility] [address] [place] [address] Dr. Felisa Trujillo MANUAL DIFF REQ NO Normal [facility] Comment on above: Performed By: #### C BC #### [facility] [address] [place] [address] Dr. Felisa Trujillo MCH (RBC) [Entitic mass] 31.5 pg Normal 26.7-34.0 [facility] Comment on above: Performed By: #### C BC #### [facility] [address] [place] [address] Dr. Felisa Trujillo MCHC (RBC) [Mass/Vol] 33.8 g/dL Normal 29.9-35.2 [facility] Comment on above: Performed By: #### C BC #### [facility] [address] [place] [address] Dr. Felisa Trujillo MCV (RBC) [Entitic vol] 93.1 fL Normal 81.0-99.0 [facility] Comment on above: Performed By: #### C BC #### [facility] [address] [place] [address] Dr. Felisa Trujillo MONO # 0.6 103/ul Normal 0.3-0.8 [facility] Comment on above: Performed By: #### C BC #### [facility] [address] [place] [address] Dr. Felisa Trujillo Monocytes/100 WBC (Bld) 8.5 % Normal 1.7-12.0 [facility] Comment on above: Performed By: #### C BC #### [facility] Laboratory [address] [place] [address] Dr. Felisa Trujillo NEUT # 3.7 103/ul Normal 1.4-6.5 [facility] Comment on above: Performed By: #### C BC #### [facility] [address] [place] [address] Dr. Felisa Trujillo Neutrophils/100 WBC (Bld) 56.5 % Normal 43.0-75.0 [facility] Comment on above: Performed By: #### C BC #### [facility] [address] [place] [address] Dr. Felisa Trujillo Platelet mean volume (Bld) [Entitic vol] 9.9 fL Normal 9.5-13.5 [facility] Comment on above: Performed By: #### C BC #### [facility] [address] [place] [address] Dr. Felisa Trujillo PLT 193 103/ul Normal 150-450 [facility] Comment on above: Performed By: #### C BC #### [facility] [address] [place] [address] Dr. Felisa Trujillo RBC 4.32 106/ul Normal 4.20-5.40 [facility] Comment on above: Performed By: #### C BC #### [facility] [address] [place] [address] Dr. Felisa Trujillo WBC 6.5 103/ul Normal 4.0-11.0 [facility] Comment on above: Performed By: #### C BC #### [facility] [address] [address] [address] Felisa Trujillo Covid-19 PCR ([facility])on 10-09 SARS-CoV-2 (COVID-19) RNA DUGLAS+probe Ql (Unsp spec) Not detected Normal NOT DETECTED [facility] Comment on above: Result Comment: [...] for this test is supported by the [place] Inspector of Health and Human Service's declaration that [...] used). Performed By: #### C VDTBH #### [facility] [address] [address] [address] Felisa Trujillo LACTATE/LACTIC ACIDon 2021 Lactate [Moles/Vol] 1.0 mmol/L Normal 0.4-2.0 [facility] Comment on above: Performed By: #### L ACT ####[facility] [address] [id number]. Felisa Trujillo PH VENOUS BLOODon 11-02-2021 PCO2 VENOUS 40.3 mmHg Normal 40.0-52.0 [facility] Comment on above: Performed By: #### P HVEN ####[facility] [address] [place], [place] [address]VjDr. Felisa Trujillo pH VENOUS 7.431 Critically high 7.330-7.430 [facility] Comment on above: Performed By: #### P HVEN ####[facility] [address] [address]Dr. Felisa Trujillo PROF 14(COMP METB)on 022 Albumin [Mass/Vol] 4.1 g/dL Normal 3.4-5.0 [facility] Comment on above: Performed By: #### H STROPN, CMP, BNP ####[facility] [address] [address]Dr. Felisa Trujillo Albumin/Globulin [Mass ratio] 1.1 {ratio} Normal [facility] Comment on above: Performed By: #### H STROPN, CMP, BNP ####[facility] [address] [address]Dr. Felisa Trujillo ALP [Catalytic activity/Vol] 120 U/L Critically high 46-116 [facility] Comment on above: Performed By: #### H STROPN, CMP, BNP ####[facility] [address] [address]Dr. Felisa Trujillo ALT [Catalytic activity/Vol] 29 U/L Normal 14-59 [facility] Comment on above: Performed By: #### H STROPN, CMP, BNP ####[facility] [address] [address]Dr. Felisa Trujillo Anion gap [Moles/Vol] 14.2 mmol/L Normal [facility] Comment on above: Performed By: #### H STROPN, CMP, BNP ####[facility] [address] [address]Dr. Felisa Trujillo AST [Catalytic activity/Vol] 24 U/L Normal 15-37 [facility] Comment on above: Performed By: #### H STROPN, CMP, BNP ####[facility] [address] [address]Dr. Felisa Trujillo Bilirubin [Mass/Vol] 0.6 mg/dL Normal 0.2-1.0 [facility] Comment on above: Performed By: #### H STROPN, CMP, BNP ####[facility] [address] [address]Dr. Felisa Trujillo Calcium [Mass/Vol] 8.8 mg/dL Normal 8.5-10.1 [facility] Comment on above: Performed By: #### H STROPN, CMP, BNP ####[facility] [address] [address]Dr. Felisa Trujillo Chloride [Moles/Vol] 103 mmol/L Normal 98-107 [facility] Comment on above: Performed By: #### H STROPN, CMP, BNP ####[facility] [address] [address]Dr. Felisa Trujillo CO2 [Moles/Vol] 25.3 mmol/L Normal 21.0-32.0 [facility] Comment on above: Performed By: #### H STROPN, CMP, BNP ####[facility] [address] [address]Dr. Felisa Trujillo Creatinine [Mass/Vol] 0.86 mg/dL Normal 0.55-1.02 [facility] Comment on above: Performed By: #### H STROPN, CMP, BNP ####[facility] [address] [place], [place] [address]Dr. Felisa Trujillo EGFR-AF BELGIAN >60 Normal >=60 [facility] Comment on above: Performed By: #### H STROPN, CMP, BNP ####[facility] [address] [place], [place] [address]Dr. Felisa Trujillo EGFR-NON AF BELGIAN >60 Normal >=60 [facility] Comment on above: Performed By: #### H STROPN, CMP, BNP ####[facility] [address] [address]Dr. Felisa Trujillo Globulin (S) [Mass/Vol] 3.6 g/dL Normal [facility] Comment on above: Performed By: #### H STROPN, CMP, BNP ####[facility] [address] [address]Dr. Felisa Trujillo Glucose [Mass/Vol] 90 mg/dL Normal 74-106 [facility] Comment on above: Performed By: #### H STROPN, CMP, BNP ####[facility] [address] [address]Dr. Felisa Trujillo Potassium [Moles/Vol] 3.5 mmol/L Normal 3.5-5.1 [facility] Comment on above: Performed By: #### H STROPN, CMP, BNP ####[facility] [address] [address]Dr. Felisa Trujillo Protein [Mass/Vol] 7.7 g/dL Normal 6.1-8.2 [facility] Comment on above: Performed By: #### H STROPN, CMP, BNP ####[facility] [address] [address]Dr. Felisa Trujillo Sodium [Moles/Vol] 139 mmol/L Normal 136-145 [facility] Comment on above: Performed By: #### H STROPN, CMP, BNP ####[facility] [address] [address]Dr. Felisa Trujillo Urea nitrogen [Mass/Vol] 13.0 mg/dL Normal 7.0-18.0 [facility] Comment on above: Performed By: #### H STROPN, CMP, BNP ####[facility] [address] [address]Dr. Felisa Trujillo Urea nitrogen/Creatinine [Mass ratio] 15.1 mg/mg Normal [facility] Comment on above: Performed By: #### H STROPN, CMP, BNP ####[facility] [address] [address]Dr. Felisa Trujillo PROTIMEon 11-02-2021 INR Coag (PPP) [Relative time] 0.99 {INR} Normal [facility] Comment on above: Performed By: #### P TT, PT #### [facility] [address] [address] [address] Felisa Trujillo INR GUIDELINES SEE BELOW Normal [facility] Comment on above: Result Comment: KAY RED INR: 2.0 - 3.0 CONDITIONS NOT LISTED BELOW 2.5 - 3.5 FOR PROSTHETIC HEART VALVE REPLACEMENT 2.5 - 3.5 RECURRENT THROMBOSIS Performed By: #### P TT, PT #### [facility] [address] [address] [address] Felisa Trujillo PT Coag (PPP) [Time] 10.7 s Normal 9.0-11.6 [facility] Comment on above: Performed By: #### P TT, PT #### [facility] [address] [place] [address] Dr. Felisa Trujillo PTTon 11-02-2021 aPTT Coag (Bld) [Time] 25.9 s Normal 22.3-36.2 [facility] Comment on above: Performed By: #### P TT, PT #### [facility] [address] [place] [address] Dr. Felisa Trujillo TROPONIN, HIGH SENSITIVITYon 11-02-2021 HSTROP 8.7 pg/mL Normal 4.0-51.3 [facility] Comment on above: Result Comment: CUT- OFF POINTS HAVE BEEN ESTABLISHED BASED ON THE FOURTH UNIVERSAL DEFINITIONS OF MYOCARDIAL INFARCTION. THE UPPER REFERENCE LIMIT (URL) OF TROPONIN, DEFINED THE 99TH PERCENTILE OF cTnI DISTRIBUTION IN A REFERENCE POPULATION, HAS BEEN CONFIRMED THE DECISION THRESHOLD FOR OK DIAGNOSIS. Performed By: #### H STROPN, CMP, BNP #### [facility] [address] [place] [address] Dr. Felisa Trujillo [facility]on SARS-CoV-2 (COVID-19) RNA DUGLAS+probe Ql (Unsp spec) Not detected Normal NOT DETECTED [facility] Comment on above: Result Comment: This test is not yet approved or cleared by the [place] FDA. When there are no FDA-approved or cleared tests available, and other criteria are met, FDA can make tests available under an emergency access mechanism called an Emergency Use Authorization (EUA). The EUA for this test is supported by the [place] of Health and Human Service's (HHS's) declaration [...] consistent with SARS-CoV-2. Performed By: #### C [facility] #### [facility] [address] [place], [place] [address] Dr. Felisa Trujillo XR CHEST 2 Von [...] by: MEHNAZ SANTIAGO Date: 2021-09-02 14:39 Normal [facility] Lab - AP Resultson 9 Lab - AP Results [id number]#1.00OT GTIFF Normal [facility] Pathology Sendout Teston Pathology Send Out. See Report Normal [facility] Comment on above: Order Comment: left ring finger , cyst tendon sheath Performed By: #### 2 [id number] ####[facility] [place] [address] Coding Summaryon 02-08-2019 Coding Summary CODING DATE: 019 FINAL [facility] STATUS: Home PAYOR: Medicare MC APC DESCRIPTION 5112 Level 2 Musculoskeletal Procedures ADMIT DX: REASON FOR VISIT DX: M65.342 Trigger finger, left ring finger FINAL DX: PRINCIPAL: M65.342 Trigger finger, left ring finger SECONDARY: M67.442 Ganglion, left hand J44.9 Chronic obstructive pulmonary disease, unspecified PYMT PROC APC STAT DESCRIPTION DOCTOR NAME DATE [id number] 4876 J1 Excision of lesion of Daquan Antunez [...] Cassy Bradley Date Saved: 02/08/2019 11:52 am [facility] Consent Formson 02-05-2019 Consent Forms [id number] [facility] Discharge Instructionson Discharge Instructions [id number]#1.00OT [facility] History and Physicalon 02-05 History and Physical [id number]#1.00OT [facility] MAGR Intraoperative Recordon 02-05-2019 MAGR Intraoperative Record MAGR Intra-Op Record Summary Primary Physician: Daquan Antunez DO Finalized Date/Time: 02/05/19 07:41:01 Pt. Name: KARYNSHEY /Sex: 1950 FEMALE Med Rec #: [id number] Physician: Daquan Antunez DO Financial #: [id number] Pt. Type: D Room/Bed: / Admit/Disch: 02/04/19 [...] Role Performed Surgeon - Primary Anesthesiologist of Attendant [employer] Record Time In 02/04/19 15:31:00 02/04/19 15:31:00 02/04/19 15:31:00 Time Out 02/04/19 16:08:00 02/04/19 16:08:00 02/04/19 16:08:00 Procedure Trigger Finger Release Trigger Finger Release Trigger Finger Release Last Modified By: Toshia Plascencia RN, Barbara RN Long, Barbara RN 02/04/19 16:16:05 02/04/19 16:16:05 02/04/19 16:16:05 Entry 4 Entry 5 Case Attendee Paloma Esparza Regina CST Role Performed Scrub Personnel Barrel Raiser Time In 02/04/19 15:31:00 02/04/19 15:31:00 Time [...] Modify Pick List 02/05/19 07:40 MHBLONG Modify [facility] Medication Managementon 01-09 Medication Management [id number]#1.00OT [facility] Provider Orderson 02-05-2019 Provider Orders [id number]#1.00OT [facility] Anesthesia Noteon 02-04-2019 Anesthesia Note [...] Problems Chronic back pain / SNOMED CT 285663049 / Confirmed Former smoker / SNOMED CT 90075483 / Confirmed GERD (gastroesophageal reflux disease) / SNOMED CT 600508822 / Confirmed Scar tissue / SNOMED CT 082931612 / Confirmed Sleep apnea / SNOMED CT 015659443 / Confirmed Histories Family History: No family history items have been selected or recorded. Procedure history: Tonsillectomy (863406830). Epidural injection of lumbar spine using fluoroscopic guidance (2450233199). Social History Alcohol Assessment Use: Current. Beer, [...] rhythm. Review / Management Laboratory Results Plan [place] [employer]#(ASA) physical status classification: Class [...] on: 02/04/2019 15:44 EDT] Alirio Mcclellan MD [facility] Inpatient Patient Summaryon 02-04-2019 Inpatient [place] [address] Patient Discharge Instructions Name: SHEY BOSS : 52 Patient Address: [address] [place] [address] Primary Care Provider: Name: LATRELL JACK After you are discharged if you find you have any questions, please, call [phone] ext [phone] to speak to a nurse. Discharge Diagnosis: Trigger finger Prescription Information: If you have been given a prescription for narcotics, seek immediate medical attention if you have any difficulty breathing or any sudden status changes such as confusion and sleepiness. If you or anyone you know is experiencing suicidal thoughts, mental health, alcohol and/or drug addiction problems; contact the Mental Health & Recovery Board [facility] 30/01 Crisis Hotline -Text 4HVVB zh 295176. If you received any narcotics, sedation, or [...] business decisions or sign any legal documents [facility] would like to thank you for allowing us to assist you with your healthcare needs. The following includes patient education materials and information regarding your injury/illness. SHEY BOSS has been given the following list of follow-up instructions, prescriptions, and patient education materials: Follow-up Instructions With: Address: When: Daquan Antunez [address] [facility], [address] [place] [address] Business (2) 02/12/2019 2:00 PM With: Address: When: LATRELL JACK [address] [place], [place] [id number] Business (1) Medications During the course of [...] awake -DO NOT lift heavy objects or branch service associate forcefully with the affected hand -DO NOT [...] or concerns, please call the office at [phone] or go to the emergency room -Follow [...] for Disease Control and Prevention [facility] Postoperative Record MAGR Phase II Record Summary Primary Physician: Daquan Antunez DO Finalized Date/Time: 02/04/19 17:11:50 Pt. Name: SHEY BOSS/Sex: 1950 FEMALE Med Rec #: [id number] Physician: Daquan Antunez DO Financial #: [id number] Pt. Type: D Room/Bed: / Admit/Disch: 02/04/19 [...] Signed By: Stefanie Garibay RN 02/04/19 17:11 [facility]2019 [facility] Preoperative Record MAGR Pre-Op Record Summary Primary Physician: Daquan Antunez DO Finalized Date/Time: 02/04/19 15:37:19 Pt. Name: SHEY BOSS /Sex: 1950 FEMALE Med Rec #: [id number] Physician: Daquan Antunez DO Financial #: [id number] Pt. Type: D Room/Bed: / Admit/Disch: 02/04/19 [...] Signed By: Toshia Plascencia RN 02/04/19 15:37 [facility] Operative Report - Surgeon/P hysicianokasey 02-04-2019 Operative Report - Surgeon/Physician Procedure: Release [...] on: 02/04/2019 16:37 EDT] Daquan Antunez DO [facility] Patient Handouton 02-04-[address] [place] POST OPERATIVE INSTRUCTIONS FOR FINGER SURGERY/MALLET FINGER REPAIR SURGEONS WRITTEN INSTRUTCTIONS:' -Keep your hand elevated above your elbow for the first 24 hours after surgery and apply an ice bag at intervals for the first 24 hours -Wiggle the unaffected fingers frequently while awake -DO NOT lift heavy objects or branch service associate forcefully with the affected hand -DO NOT [...] or concerns, please call the office at [phone] or go to the emergency room -Follow up as scheduled [facility] Progress Note - Nurseon 01-08 Progress Note - Nurse Spoke with pt regarding arrival time of 1145 and NPO status. Verbalized understanding. Pt instructed she will need a dedicated local truck driver. Verbalized understanding. [Electronically Signed on: 02/01/2019 14:53 EDT] Kika Akers RN [Verified on: 02/01/2019 14:53 EDT] Kika Akers RN [facility] Coding Summaryon 01-29-2019 Coding Summary CODING DATE: 019 [facility] STATUS: Home PAYOR: Medicare MC APC DESCRIPTION [...] Lili Cueto Date Saved: 01/29/2019 01:42 pm Normal [facility] .Auto Diff 1on 01-28-2019 Auto [place] % 8 % Normal 1-12 [facility] Comment on above: Performed By: #### 7 [id number], [id number] #### [facility] ([facility] [address] [place] [address] Baso Abs# 0.0 x10 Normal 0.0-0.2 [facility] Comment on above: Performed By: #### 7 [id number], [id number] #### [facility] (DEFAULT) [address] [place] [address] Basophils/100 WBC (Bld) 0.4 % Normal 0.2-2.0 [facility] Comment on above: Performed By: #### 7 [id number], [id number] #### [facility] (DEFAULT) [address] [place] [address]6119 Eos Abs# 0.2 x10 Normal 0.0-0.4 [facility] Comment on above: Performed By: #### 7 [id number], [id number] #### [facility] (DEFAULT) [address] [place] [address]781 Eosinophils/100 WBC (Bld) 3.5 % Normal 0.9-4.0 [facility] Comment on above: Performed By: #### 7 [id number], [id number] #### [facility] (DEFAULT) [address] [place] [address] 17902 Lymphocytes (Bld) [#/Vol] 1.6 x10 Normal 1.3-2.9 [facility] Comment on above: Performed By: #### 7 [id number], [id number] #### [facility] (DEFAULT) [address] [place] [address] 40015 Lymphocytes/100 WBC (Bld) 32 % Normal 14-48 [facility] Comment on above: Performed By: #### 7 [id number], [id number] #### [facility] (DEFAULT) [address] [place] [address]97 [place]elford Abs# 0.4 x10 Normal 0.0-0.8 [facility] Comment on above: Performed By: #### 7 [id number], [id number] #### [facility] (DEFAULT) [address] [place] [address] 89380 Neut Abs# 2.8 x10 Normal 1.5-9.2 [facility] Comment on above: Performed By: #### 7 [id number], [id number] #### [facility] (DEFAULT) [address] [place] [address] 81402 Neutrophils/100 WBC (Bld) 56 % Normal 44-88 [facility] Comment on above: Performed By: #### 7 [id number], [id number] #### [facility] (DEFAULT) [address] [place] [address] 80096 CBC w/ Auto Diffon 9 Erythrocyte distribution width (RBC) [Ratio] 13.4 % Normal 11.5-15.0 [facility] Comment on above: Performed By: #### 7 [id number], [id number] #### [facility] (DEFAULT) [address] [place] [address] Hematocrit (Bld) [Volume fraction] 40.4 % Normal 33.7-40.4 [facility] Comment on above: Performed By: #### 7 [id number], [id number] #### [facility] (DEFAULT) [address] [place] [address] Hemoglobin (Bld) [Mass/Vol] 13.9 g/dL Normal 11.3-15.9 [facility] Comment on above: Performed By: #### 7 [id number], [id number] #### [facility] (DEFAULT) [address] [place] [address] 77198 Man Diff? Auto Normal [facility] Comment on above: Performed By: #### 7 [id number], [id number] #### [facility] (DEFAULT) [address] [place] [address] 29623 MCH (RBC) [Entitic mass] 31 pg Normal 24-34 [facility] Comment on above: Performed By: #### 7 [id number], [id number] #### [facility] (DEFAULT) [address] [place] [address] 69521 MCHC (RBC) [Mass/Vol] 34 g/dL Normal 26-37 [facility] Comment on above: Performed By: #### 7 [id number], [id number] #### [facility] (DEFAULT) [address] [place] [address] 73010 MCV (RBC) [Entitic vol] 90 fL Normal 81-100 [facility] Comment on above: Performed By: #### 7 [id number], [id number] #### [facility] (DEFAULT) [address] [place] [address] 15827 Platelet mean volume (Bld) [Entitic vol] 10.3 fL High 6.3-10.2 [facility] Comment on above: Performed By: #### 7 [id number], [id number] #### [facility] (DEFAULT) [address] [place] [address] 29472 Platelets (Bld) [#/Vol] 199 x10 Normal 138-427 [facility] Comment on above: Performed By: #### 7 [id number], [id number] #### [facility] (DEFAULT) [address] [place] [address] 84751 RBC (Bld) [#/Vol] 4.47 x10 Normal 3.70-5.30 [facility] Comment on above: Performed By: #### 7 [id number], [id number] #### [facility] (DEFAULT) [address] [place] [address] 98508 WBC (Bld) [#/Vol] 5.1 x10 Normal 3.5-10.5 [facility] Comment on above: Performed By: #### 7 [id number], [id number] #### [facility] (DEFAULT) [address] [place] [address]679 Vital Signs Date Time Vital Sign Value Performing Clinician Facility 03-20-2024 13:23-0400 Diastolic blood pressure 81 mm[Hg] Wilson Sarmini [facility] 03-20-2024 13:23-0400 Heart rate 66 /min Wilson Ameyamini [facility] 03-20-2024 13:23-0400 Mean blood pressure 112 mm[Hg] Wilson Sarmini [facility] 03-20-2024 13:23-0400 Respiratory rate 15 /min Wilson Sarmini [facility] 03-20-2024 13:23-0400 SaO2% (BldA) [Mass fraction] 94 % Wilson Sarmini [facility] 03-20-2024 13:23-0400 Systolic blood pressure 173 mm[Hg] Wilson Sarmini [facility] 03-20-2024 13:15-0400 Diastolic blood pressure 78 mm[Hg] Wilson Sarmini [facility] 03-20-2024 13:15-0400 Heart rate 64 /min Wilson Sarmini [facility] 03-20-2024 13:15-0400 Mean blood pressure 105 mm[Hg] Wilson Sarmini [facility] 03-20-2024 13:15-0400 Respiratory rate 13 /min Wilson Sarmini [facility] 03-20-2024 13:15-0400 SaO2% (BldA) [Mass fraction] 96 % Wilson Sarmini [facility] 03-20-2024 13:15-0400 Systolic blood pressure 159 mm[Hg] Wilson Sarmini [facility] 03-20-2024 13:05-0400 Diastolic blood pressure 76 mm[Hg] Wilson Sarmini [facility] 03-20-2024 13:05-0400 Heart rate 64 /min Wilson Sarmini [facility] 03-20-2024 13:05-0400 Mean blood pressure 99 mm[Hg] Wilson Sarmini [facility] 03-20-2024 13:05-0400 Respiratory rate 12 /min Wilson Sarmini [facility] 03-20-2024 13:05-0400 SaO2% (BldA) [Mass fraction] 96 % Wilson Sarmini [facility] 03-20-2024 13:05-0400 Systolic blood pressure 145 mm[Hg] Wilson Sarmini [facility] 03-20-2024 12:58-0400 Body temperature 97.16 [degF] Wilson Sarmini [facility] 03-20-2024 12:50-0400 Respiratory rate 15 /min Wilson Sarmini [facility] 03-20-2024 12:45-0400 Respiratory rate 18 /min Wilson Sarmini [facility] 03-20-2024 11:14-0400 Blood Pressure Location Wilson Sarmini [facility] 03-20-2024 11:14-0400 Body temperature 97.7 [degF] Wilson Sarmini [facility] 03-20-2024 11:14-0400 Respiratory rate 18 /min Wilson Sarmini [facility] 02-26-2024 09:12-0400 Blood Pressure Location Wilson Sarmini [facility] 02-26-2024 09:12-0400 Diastolic blood pressure 81 mm[Hg] Wilson Sarmini [facility] 02-26-2024 09:12-0400 Heart rate 66 /min Wilson Ameyamini [facility] 02-26-2024 09:12-0400 Respiratory rate 16 /min Wilson Ameyamini [facility] 02-26-2024 09:12-0400 Systolic blood pressure 131 mm[Hg] Wilson Ameyamini [facility] 10-13-2023 09:42-0400 Diastolic blood pressure 80 mm[Hg] Pa NILL [facility] 10-13-2023 09:42-0400 Heart rate 69 /min Pa NILL [facility] 10-13-2023 09:42-0400 Mean blood pressure 102 mm[Hg] Pa NILL [facility] 10-13-2023 09:42-0400 Respiratory rate 15 /min Pa NILL [facility] 10-13-2023 09:42-0400 SaO2% (BldA) [Mass fraction] 97 % Pa NILL [facility] 10-13-2023 09:42-0400 Systolic blood pressure 146 mm[Hg] Pa NILL [facility] 10-13-2023 09:32-0400 Diastolic blood pressure 76 mm[Hg] Pa NILL [facility] 10-13-2023 09:32-0400 Heart rate 67 /min Pa NILL [facility] 10-13-2023 09:32-0400 Mean blood pressure 94 mm[Hg] Pa NILL [facility] 10-13-2023 09:32-0400 Respiratory rate 20 /min Pa NILL [facility] 10-13-2023 09:32-0400 SaO2% (BldA) [Mass fraction] 95 % Pa NILL [facility] 10-13-2023 09:32-0400 Systolic blood pressure 129 mm[Hg] Pa NILL [facility] 10-13-2023 09:27-0400 Diastolic blood pressure 71 mm[Hg] Pa NILL [facility] 10-13-2023 09:27-0400 Heart rate 70 /min Pa NILL [facility] 10-13-2023 09:27-0400 Mean blood pressure 92 mm[Hg] Pa NILL [facility] 10-13-2023 09:27-0400 Respiratory rate 15 /min Pa NILL [facility] 10-13-2023 09:27-0400 SaO2% (BldA) [Mass fraction] 96 % Pa NILL [facility] 10-13-2023 09:27-0400 Systolic blood pressure 134 mm[Hg] Pa NILL [facility] 10-13-2023 09:17-0400 Body temperature 97.16 [degF] Pa NILL [facility] 10-13-2023 09:10-0400 Respiratory rate 16 /min Ap NILL [facility] 10-13-2023 09:05-0400 Respiratory rate 16 /min Pa NILL [facility] 10-13-2023 08:03-0400 Body temperature 97.34 [degF] Pa WEBB [facility] 08-11-2023 09:53-0500 Body height 160 cm Latrell Jack MD Work Phone: [facility] 08-11-2023 09:53-0500 Body mass index (BMI) [Ratio] 40.39 kg/m2 Latrell Jack MD Work Phone: [facility] 08-11-2023 09:53-0500 Body temperature 97.11 [degF] Latrell Jack MD Work Phone: [facility] 08-11-2023 09:53-0500 Body weight 103.42 kg Latrell Jack MD Work Phone: [facility] 08-11-2023 09:53-0500 Diastolic blood pressure 70 mm[Hg] Latrell Jack MD Work Phone: [facility] 08-11-2023 09:53-0500 Heart rate 94 /min Latrell Jack MD Work Phone: [facility] 08-11-2023 09:53-0500 SaO2% (BldA) [Mass fraction] 97 % Latrell Jack MD Work Phone: [facility] 08-11-2023 09:53-0500 Systolic blood pressure 140 mm[Hg] Latrell Jack MD Work Phone: [facility] Encounters Encounter Date Encounter Type Care Provider Facility Start: 04-11-2024 End: 04-11-2024 Patient encounter procedure Mao Morrow PhD Work Phone: 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) Start: 04-11-2024 End: 04-11-2024 ambulatory LATRELL JACK Not Available Start: 03-26-2024 End: 03-26-2024 ambulatory MAO MORROW Not Available Start: 03-26-2024 End: 03-26-2024 ambulatory Wilson Talal Ameyamini Facility[facility] Start: 03-25-2024 End: 03-25-2024 ambulatory DIOMEDES MATUTE Not Available Start: 03-20-2024 End: 03-20-2024 ambulatory Katie Flanaganal Ameyamini Facility:[facility] Start: 03-20-2024 End: 03-20-2024 Patient encounter procedure Katie Houmini [facility] Start: 03-07-2024 End: 03-07-2024 ambulatory DIOMEDES MATUTE Not Available Start: 02-26-2024 End: 02-26-2024 ambulatory Wilson Talal Ameyamini Facility:[facility] Start: 02-26-2024 End: 02-26-2024 Patient encounter procedure Katie Hairston [facility] Start: 02-13-2024 ambulatory Pa NILL Facility:[facility] Start: 02-09-2024 End: 02-09-2024 ambulatory LATRELL JACK Not Available Start: 10-13-2023 End: 10-13-2023 ambulatory Pa R NILL Facility:[facility] Start: 10-13-2023 End: 10-13-2023 Patient encounter procedure Pa R NILL [facility] Start: 09-12-2023 End: 09-12-2023 ambulatory Pa R NILL Facility:[facility] Start: 09-05-2023 ambulatory Pa NILL Facility:[facility] Start: 08-11-2023 Teja Jack MD Work Phone: [facility] Start: 08-11-2023 Teja Jack MD Work Phone: [facility] Start: 08-11-2023 End: 08-11-2023 Office outpatient visit 25 minutes Latrell Jack MD Work Phone: [facility] Comment on above: Essential hypertensi on, benign [...] 09-09-2021 Encounter for prepro cedural laboratory examination [facility] Alfredo [facility] Start: 09-07-2021 End: 09-07-[address] LATRELL JACK Facility:[facility] Start: 09-07-2021 End: 09-07-2021 Encounter for preprocedural laboratory examination DR LATRELL JACK Facility:[facility] Start: 09-03-2021 Encounter for prepro cedural cardiovascular examination [facility] Alfredo [facility] Start: 09-02-2021 End: 09-03-[address] LATRELL JACK Facility:[facility] Start: 09-02-2021 End: 09-03-2021 Encounter for preprocedural cardiovascular examination DR LATRELL JACK Facility:[facility] Procedures Date Procedure Procedure Detail Performing Clinician Start: 03-20-2024 Esophagogastroduodenoscopy Katie george Start: 11-28-2023 Mammography Mao Morrow PhD Work Phone: Start: 10-13-2023 Colonoscopy Mao Morrow PhD Work Phone: Start: 10-13-2023 Colonoscopy Pa WEBB Hand tendon repaired Pa PALMERL Open reduction of fr acture of ankle with internal fixation Pa NILL Repair of meniscus Pa Marsh ILL Tonsillectomy Pa NILL Plan of Treatment Date Care Activity Detail Author Start: 10-12-2033 Screening for malign ant neoplasm of colon [facility] Start: 11-27-2024 Screening for malign ant neoplasm of breast Mammogram [facility] Start: 05-30-2024 End: 05-30-2024 Patient encounter procedure 05/30/2024 3:40 PM EST Office Visit [facility] [address] [place] [id number] Sandra Arcos, PEDRO [address] [place], [place] [facility] Start: 05-15-2024 End: 05-15-2024 Patient encounter procedure 05/15/2024 10:00 AM EST Office Visit [facility] [address] [place] [address] Latrell Jack MD [address] [place] [id number] [facility] Start: 03-10-2024 Influenza vaccination Influenza Vacc ine (#1) [facility] Start: 02-09-2024 End: 02-09-2024 Patient encounter procedure 02/09/2024 9:45 AM EDT Office Visit [facility] [address] [place] [address] Latrell Jack MD [address] [place] [phone] [facility] Start: 08-11-2023 End: 08-11-2024 Basic metabolic 1998 panel - Serum or Plasma Basic metabolic panel Lab Routine Encounter for long-term (current) use of medications Expected: 08/11/2023 (Approximate), Expires: 08/11/2024 [facility] Comment on above: Expected: 08/11/2023 (Approximate), Expires: 08/11/2024 Start: 08-11-2023 End: 08-11-2024 CBC W Auto Differential panel - Blood CBC and differential Lab Routine Encounter for long-term (current) use of medications Expected: 08/11/2023 (Approximate), Expires: 08/11/2024 [facility] Comment on above: Expected: 08/11/2023 (Approximate), Expires: 08/11/2024 Start: 08-11-2023 End: 08-11-2024 Hemoglobin A1c measurement Hemoglobin A1c Lab Routine Morbid obesity due to excess calories (CMS/HCC) Expected: 08/11/2023 (Approximate), Expires: 08/11/2024 [facility] Work Phone: Comment on above: Expected: 08/11/2023 (Approximate), Expires: 08/11/2024 Start: 08-11-2023 End: 08-11-2024 Hepatic function 2000 panel - Serum or Plasma Hepatic function panel Lab Routine Encounter for long-term (current) use of medications Expected: 08/11/2023 (Approximate), Expires: 08/11/2024 [facility] Comment on above: Expected: 08/11/2023 (Approximate), Expires: 08/11/2024 Start: 08-11-2023 End: 08-11-2024 Lipid 1996 panel - Serum or Plasma Lipid panel Lab Routine Dyslipidemia (CMS/HCC) Expected: 08/11/2023 (Approximate), Expires: 08/11/2024 [facility] Comment on above: Expected: 08/11/2023 (Approximate), Expires: 08/11/2024 Start: 08-11-2023 End: 08-11-2024 Thyrotropin [Units/volume] in Serum or Plasma TSH Lab Routine Morbid obesity due to excess calories (CMS/HCC) Expected: 08/11/2023 (Approximate), Expires: 08/11/2024 [facility] Comment on above: Expected: 08/11/2023 (Approximate), Expires: 08/11/2024 Start: 08-11-2023 End: 08-11-2023 Patient encounter procedure 08/11/2023 9:45 AM EST Office Visit [facility] [address] [place] [address] Latrell Jack MD [address] [place] [address] Arrived [facility] Comment on above: Arrived Start: 03-10-2023 Influenza vaccination Influenza Vacc ine (#1) [facility] Start: 1991 Screening for malign ant neoplasm of breast Mammogram [facility] Start: 1950 Screening for malign ant neoplasm of colon [facility] Immunizations Immunization Date Immunization Notes Care Provider Fa cili 04-09-2023 influenza virus vacc ine, unspecified formulation Pa WEBB [facility] 05-03-2022 SARS-CoV-2 (COVID-19 ) [id number] Pa WEBB [facility] [place] 05-03-2022 influenza virus vacc ine, unspecified formulation Latrell Jack MD Work Phone: [facility] 11-25-2021 pneumococcal conjuga te vaccine, 13 valent Mao Morrow PhD Work Phone: [facility] 04-12-2021 influenza virus vacc ine, unspecified formulation Katie Hairston [facility] 04-12-2021 SARS-CoV-2 (COVID-19 ) mRNA BNT-162b2 vax Pa WEBB [facility] Comment on above: Result Comment: 2023: [id number] 09-14-2020 SARS-CoV-2 (COVID-19 ) mRNA BNT-162b2 vax Pa NILL [facility] Comment on above: Result Comment: 2023: [id number] 08-27-2020 SARS-CoV-2 (COVID-19 ) mRNA BNT-162b2 vax Pa NILL [facility] Comment on above: Result Comment: 2023: [id number] 06-16-2020 influenza virus vacc ine, unspecified formulation Wilson Sarmini [facility] 05-16-2019 influenza virus vacc ine, unspecified formulation Wilson Sarmini [facility] 05-16-2019 pneumococcal polysaccharide vaccine, 23 valent Wilson Sarmini [facility] 05-12-2018 influenza virus vacc ine, unspecified formulation Wilson Sarmini [facility] 01-31-2018 pneumococcal conjuga te vaccine, 13 valent Wilson Sarmini [facility] 05-10-2016 influenza virus vacc ine, unspecified formulation Wilson Sarmini [facility] 04-16-2015 influenza virus vacc ine, unspecified formulation Wilson Sarmini [facility] Payers Date Payer Category Payer Private Health Insurance [id number] 2016 Medicare MEDICARE MEDICAR E RAILROAD [id number] 2016-Present [employer] RAILRO[employer] MEDICARE [address] [address] [place] [address] Medicare [id number] 1959 Medicare [id number] 1959 Private Health Insurance [id number] 1951 Unknown [id number] 2.16.840.1.304056.3.579. 2.593 1951 Unknown [id number] 2.16.840.1.991291.3.579. 2.593 1951 Unknown [id number] 2.16.840.1.473686.3.579. 2.593 1951 Unknown [id number] 2.16.840.1.724002.3.579. 2.593 1951 Unknown [id number] 2.16.840.1.145583.3.579. 2.593 1951 Unknown [id number] 2.16.840.1.532876.3.579. 2.593 1951 Unknown [id number] 2.16.840.1.184956.3.579. 2.593 1951 Unknown [id number] 2.16.840.1.623991.3.579. 2.727 1951 Unknown [id number] 2.16.840.1.316629.3.579. 2.727 1951 Unknown [id number] 2.16.840.1.431978.3.579. 2.727 1951 Unknown [id number] 2.16.840.1.171469.3.579. 2.727 1951 Unknown [id number] 2.16.840.1.411276.3.579. 2.727 1951 Unknown [id number] 2.16.840.1.100330.3.579. 2.1259 1951 Unknown [id number] 2.16.840.1.246265.3.579. 2.1259 1951 Unknown [id number] 2.16.840.1.673896.3.579. 2.1258 1951 Unknown [id number] 2.16.840.1.926460.3.579. 2.9 1951 Unknown [id number] 2.16840.1.125918.3.579. 2.9 1950 Unknown [id number] 2.16.840.1.997926.3.579. 2.1259 Social History Date Type Detail Facility Start: 08-05-2023 End: 03-07-2024 Tobacco smoking status MAIS Ex-smoker [facility] Start: 07-10-1967 End: 01-08-2012 History of tobacco use Current smoker [facility] Start: 07-10-1967 End: 01-08-2012 History of tobacco use Cigarette Smoker [facility] Start: 08-05-2023 End: 02-02-2024 Cigarettes smoked current (pack per day) - Reported 1 [facility] Start: 08-05-2023 End: 02-02-2024 Tobacco use panel [facility] Start: 1950 Sex Assigned At Not on file [facility] Start: 08-11-2023 End: 03-07-2024 Tobacco use and exposure Smokeless tobacco non-user [facility] Tobacco smoking status Never [facility] [place] Start: 03-07-2024 Alcoholic beverage intake Current drinker of alcohol (finding) [facility] Are you now , , , , never or living with a partner? Never [facility] How often to you hav e a drink containing alcohol? Monthly or less [facility] How many standard drinks containing alcohol do you have on a typical day? 3 or 4 [facility] How often do you hav e 6 or more drinks on 1 occasion? Less than monthly [facility] Do you feel stress - tense, restless, nervous, or anxious, or unable to sleep at night because your mind is troubled all the time - these days [OSQ] To some extent [facility] In the past 12 month s, was there a time when you were not able to pay the mortgage or rent on time? No [facility] Start: 03-03-2024 Alcohol Comment Caffeine: 2-3 cups per day [facility] Functional Status Date Assessment Result Facility 03-20-2024 Functional Status N/A [facility] 02-26-2024 Functional Status N/A [facility] 10-13-2023 Functional Status N/A [facility] Clinical Notes 09-10-2021 to 04-11-2024 Mao Morrow, PhD - 04/11/2024 9:00 AM EDTRadiology Note Date & Type Note Facility 04-11-2024 History of Present illness Narrative Images from the original note were not included. Neuropsychology Mao Morrow, PhD NEUROPSYCHOLOGICAL EVALUATION Shey Boss is a 73 y.o. female referred for neuropsychological evaluation to assist with facilitating and informing medical differential diagnosis and clinical decision-making. The following information was obtained during an interview with the patient, as well as review of available records. PRESENTING PROBLEM: Progressive decline in memory of the past year such as forgetting conversations, general daily forgetfulness, and occasional word finding difficulty. Otherwise, remains independent in ADLs, housework, finances, and medication. Continues to drive but does have some concern regarding delayed reaction time and processing, as well as occasionally drifting out of her irina. Minimal exercise due to physical limitations, most notably the COPD. Remains social with family. Poor sleep quality, typically averaging 4-5 hours/night. Does wear her CPAP nightly. Experiences fluctuating daytime energy associated with COPD. Pain complaints include worsening knees, bad right wrist, as well as surgery on left hand. Denied any neurological history. 03/15/24 brain MRI nonacute with mild chronic microvascular ischemic changes. 03/25/24 routine EEG normal. MMSE 28/30. Family neurological history includes Alzheimer's dementia (mother and paternal aunt). Psychiatric history notable for anxiety. Has never sought help for this. No history of alcohol/substance abuse. Reformed smoker. [place] language [place]. Completed high school education as well as some college. Described self as a C student. 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 Single, never , no children. Resides with her niece and boyfriend. Described a positive home environment. MEDICAL HISTORY/MEDICATION: MEDICATIONS: Current Outpatient Medications Medication Instructions albuterol 2.5 mg, Nebulization, Every 4 hours PRN alpha tocopherol (Vitamin E) 400 units capsule 1 capsule, Oral, Every 24 hours aspirin 81 MG EC tablet 1 tablet, Oral, Every 24 hours atorvastatin (LIPITOR) 40 mg, Oral, Nightly calcium carbonate 1500 (600 Ca) MG tablet 1 tablet, Oral, 2 times daily with meals cholecalciferol (Vitamin D-3) 25 MCG (1000 UT) capsule 1 capsule, Oral, Every 24 hours donepezil (ARICEPT) 5 mg, Oral, Nightly famotidine (Pepcid) 40 MG tablet 1 tablet, Oral, Every 24 hours fluticasone (Flonase) 50 MCG/ACT nasal spray 2 sprays, Each Nostril, Daily losartan (COZAAR) 50 mg, Oral, Daily pantoprazole (PROTONIX) 40 mg, Oral, 2 times daily tiotropium (SPIRIVA HANDIHALER) 18 mcg, Inhalation, Daily RT zolpidem CR (AMBIEN CR) 12.5 mg, Oral, Nightly ASSESSMENT: Presented to appointment on time, alert, and Ox3. Rapport easily established. Good eye contact. Socially appropriate during conversation and testing. Hearing adequate for current purposes. Ambulated independently. Purpose for current evaluation explained and patient agreed to participate. Overall appeared to put forth good effort. Vision/Visuoconstruction: Binocular near-point visual acuity 20/30. Visual lares full to confrontation. Visuoconstruction 35th %ile. Nonverbal abstract reasoning 90th %ile. Copy of a complex geometric design >16th %ile. Motor/Speed of Processing: Left-handed. Data [employer] strength 31st %ile with left-hand, 18th %ile with right. Speeded graphomotor transcoding 54th %ile. Attention/Working Memory: Auditory attention/working memory 31st %ile (5 digits forward, 4 digits backward, 5 digits during sequencing). Speeded visual scanning/attention 82nd %ile. Speeded visual divided attention 18th %ile. Speech/Language: Expressive speech fluent and absent of paraphasic errors. Comprehension adequate for current purposes. Single-word reading 47th %ile. Generative naming to phonemic cues 16th %ile, 66th %ile to semantic cues. Confrontation naming 27th %ile. Verbal abstract reasoning 31st %ile. Learning and Memory: Learning of a word list 58th %ile (9-3-35-10-12), delayed recall 50th %ile. Recognition discriminability 69th %ile. Forced-choice 16/16. Immediate recall for prose passages 90th %ile, delayed 79th %ile. Recognition >75th %ile. Immediate recall for a variety of geometric figures 31st %ile, delayed 82nd %ile. Recognition >75th %ile. Executive Functioning: Novel problem-solving and cognitive flexibility >16th %ile, 5/6 categories completed in 64 sorts. Responding absent of significant perseveration. Emotional Functioning: Severe depression and moderate anxiety. Denied any thoughts of self-harm. FINDINGS AND RECOMMENDATIONS: CONCLUSIONS: 1. Estimated average pre-morbid intellectual functioning. 2. Preserved visual acuity without signs of visual field cut or neglect. 3. Preserved bilateral gross motor function. 4. Severe depression and moderate anxiety. OPINION: Current neuropsychological evaluation demonstrates well-preserved cognition and memory. He demonstrates good cognitive reserve for her age. There is no evidence of a neurodegenerative condition or other organic etiology. Findings are completely normal for her age. Presentation is in the context of severe depression, moderate anxiety, as well as fluctuating sleep quality and daytime energy. Overall clinical concerns appear to be most reflective of a distractibility issue. Combination of the above factors are sapping attentional resources, thereby interfering with optimal memory and cognitive efficiency. RECOMMENDATIONS: Results and recommendations forwarded to treating physician for review during their next appointment. Patient encouraged to contact this office with any additional questions. No activity restrictions from a cognitive standpoint. More aggressive management of the depression and anxiety. Recommend combination of psychopharmacologic and psychotherapeutic intervention for optimal prognosis. Improved sleep quality, despite CPAP compliance. Memory strategies: Regularly and frequently review information that must be remembered. Link new information in as many ways as possible to already known information. This strategy creates several avenues for remembering the information later. Utilize external memory sources such as lists, date books, calendars, and pocket-size recorders for information that must be remembered. A smartphone is a useful tool in consolidating all this information into one source. Active listening, such as repeating and summarizing information back to presenter when learning important information for future recall may be beneficial as opposed to simply passive listening. Establish a consistent structured routine. Regular physical activity for stress relief, improved cognitive efficiency, and optimal sleep. Attempt new hobbies and skills, keep learning. Proper nutritional intake, such as Mediterranean-style diet, while paying close attention to food sourcing. No need for neuropsychological re-evaluation at this time. Results may be used as a baseline point of comparison should there be concern for future cognitive decline. Thank you for allowing me to participate in the care of this individual. Please contact me with any questions at [phone]. documented in this encounter [facility] 03-27-2024 Note Endoscopic Procedure Report - Other [...] 1 tab, Oral, Daily Flonase 0.05 mg/inh [place]: 2 spray(s), Nasal, Daily, Refill(s) 0, Dry [...] a day (at bedtime) Flonase 0.05 mg/inh [place] 2 spray(s), Nasal, Daily losartan 25 mg [...] All Problems HTN (hypertension) / SNOMED CT 3508754556 / Confirmed Chronic obstructive pulmonary disease / SNOMED CT 23972624 / Confirmed Insomnia / SNOMED CT 111895288 / Confirmed Seasonal allergic rhinitis / SNOMED CT 983355743 / Confirmed Dyslipidemia / SNOMED CT 7873408843 / Confirmed BMI 39.0-39.9,adult / SNOMED CT 824430152 / Confirmed Morbid obesity / SNOMED CT 933449533 / Confirmed GERD (gastroesophageal reflux disease) / SNOMED CT 654593832 / Confirmed Hiatal hernia / SNOMED CT 694051720 / Confirmed EDWIN (obstructive sleep apnea) / SNOMED CT 953302945 / Confirmed Lower extremity edema / SNOMED CT 719447518 / Confirmed TIA (transient ischemic attack) / SNOMED CT 305511662 / Confirmed Screening for malignant neoplasm of colon / SNOMED CT 081248968 / Confirmed Dysphagia / SNOMED CT 81457890 / Confirmed Histories Past Medical History: Resolved Hernia (564774559): Resolved. Sleep apnea (537840044): Resolved. Family History: Father Alcoholism Primary malignant neoplasm of lung COPD Mother Cardiac arrest Alzheimer's disease Procedure history: Colonoscopy ([id number]) on 10/13/2023 at 73 Years. ORIF - Open reduction of fracture of ankle with internal fixation ([id number]). Meniscal repair (850907489). Tonsillectomy (024015372). Hand tendon repaired (451414924). Social History Social & Psychosocial Habits Alcohol [...] Last Charted Temp Temporal 36.5 DegC (MAR 20:14) Heart Rate Monitored 72 bpm (MAR 20:) SBP H 173 mmHg (MAR 20:14) DBP 72 mmHg (MAR 20:) Weight 100 kg (MAR 20:) General: in Nad Abdomen: Soft, NTND Impression and Plan Impression: DYSPHAGIA Plan: -EGD [facility] Comment on above: Result Comment: mary anne alicia folder Electronically Signed By: Yovanny OLIVO, Katie Torres\.maikol\Date and Time Signed: 03/20/24 12:47 EDT 03-20-2024 [...] Follow these instructions at home: Medicines Take [id number] and prescription medicines only as told by [...] or drinks. ?Garlic or onions. ?Spicy foods. ?Reagan fruits. ?Tomato-based foods. ?Fatty or fried foods. [...] provider. Document Revised: 01/09/2023 Document Reviewed: 01/09/2023 [employer]ather Patient Education 2023 [employer]. 03/20/2024 13:07:56 Gastritis, Adult, Gazf-qe-Gbtm Gastritis, Adult Gastritis is irritation and swelling [...] Follow these instructions at home: Medicines Take dclq-zni-yaatssu and prescription medicines only as told by [...] alcohol is in your drink. In the [place] one drink equals one 12 oz bottle [...] provider. Document Revised: 10/30/2021 Document Reviewed: 10/30/2021 [employer]ather Patient Education 2023 [employer]. 03/20/2024 13:07:48 Hiatal Hernia Hiatal Hernia A [...] reduce GERD symptoms. Medicines. These may include: ?Tfem-qbf-dasczsh antacids. ?Medicines that make your stomach empty [...] may include: ?Fatty foods, like fried foods. ?Reagan fruits, like oranges or lemon. ?Other foods [...] Do not drink alcohol. General instructions Take tiii-ftv-bokjase and prescription medicines only as told by [...] provider. Document Revised: 08/23/2022 Document Reviewed: 08/23/2022 Gather Patient Education 2023 [employer]. 03/20/2024 13:07:46 Endoscopy, Care After Procedure [facility] [place] [facility]) Endoscopy Care After Procedure Please read [...] blood. Document Released: 02/07/2005 Document Re-Released: 12/18/2006 [facility] Patient Information 2009 [employer]. Follow Up Care 02/26/2024 09:52:05 With:Yovanny OLIVO, SENAIT Sifuentes, MED Address: When: Unknown Comments:Call for any problems. Office will call to schedule follow up appointment [facility] 03-20-2024 Evaluation + Plan note Future Scheduled TestsXR Esophagus 03/20/24 [facility] 03-20-2024 Note Patient Education - Text [...] Document Re-Released: 12/18/2006 ExitCare? Patient Information ?2009 [employer]. Gastroenterology Hiatal Hernia A hiatal hernia occurs [...] symptoms. ? Medicines. These may include: ? Wrya-pux-ugmumth antacids. ? Medicines that make your stomach [...] Avoid putting pressu (more content not included)... [facility] 03-20-2024 Note Endoscopic Procedure Report - Other [...] otherwise normal examined duodenum Images Procedure images: Rec1_hd_video___[id number]. jpg Rec1_hd_video____35_581. jpg Rec1_hd_video____25_745. jpg Rec1_hd_video____15_326. jpg Rec1_hd_video____14_566. jpg Rec1_hd_video_2023____01_833. jpg . Post-Procedure Complications: none. Estimated blood loss: [...] surgery referral is indicated, will be ordered [facility] Comment on above: Result Comment: Elec tronically Signed By: Yovanny OLIVO, Katie Torres\.br\Date and Time Signed: 03/20/24 12:58 EDT Other Comment: Samreen dueñas Attachment - attachment storage system not supported [id number] Can be viewed in source systemMissing Attachment - attachment storage system not supported [id number] Can be viewed in source systemMissing Attachment - attachment storage system not supported [id number] Can be viewed in source systemMissing Attachment - attachment storage system not supported [id number] Can be viewed in source systemMissing Attachment - attachment storage system not supported [id number] Can be viewed in source systemMissing Attachment - attachment storage system not supported [id number] Can be viewed in source system 03-20-2024 [...] 1 tab, Oral, Daily Flonase 0.05 mg/inh [place]: 2 spray(s), Nasal, Daily, Refill(s) 0, Dry [...] a day (at bedtime) Flonase 0.05 mg/inh [place] 2 spray(s), Nasal, Daily losartan 25 mg [...] All Problems HTN (hypertension) / SNOMED CT 1577807540 / Confirmed Chronic obstructive pulmonary disease / SNOMED CT 01523377 / Confirmed Insomnia / SNOMED CT 060094197 / Confirmed Seasonal allergic rhinitis / SNOMED CT 071376705 / Confirmed Dyslipidemia / SNOMED CT 1586655277 / Confirmed BMI 39.0-39.9,adult / SNOMED CT 700853902 / Confirmed Morbid obesity / SNOMED CT 499638545 / Confirmed GERD (gastroesophageal reflux disease) / SNOMED CT 277034391 / Confirmed Hiatal hernia / SNOMED CT 065882798 / Confirmed EDWIN (obstructive sleep apnea) / SNOMED CT 301478674 / Confirmed Lower extremity edema / SNOMED CT 762821869 / Confirmed TIA (transient ischemic attack) / SNOMED CT 153193200 / Confirmed Screening for malignant neoplasm of colon / SNOMED CT 598167518 / Confirmed Dysphagia / SNOMED CT 56409040 / Confirmed Histories Past Medical History: Resolved Hernia (967208050): Resolved. Sleep apnea (517143246): Resolved. Family History: Father Alcoholism Primary malignant neoplasm of lung COPD Mother Cardiac arrest Alzheimer's disease Procedure history: Colonoscopy (686562271) on 10/13/2023 at 73 Years. ORIF - Open reduction of fracture of ankle with internal fixation (084617475387741). Meniscal repair (464095526). Tonsillectomy (681534516). Hand tendon repaired (037110245). Social History Social & Psychosocial Habits Alcohol [...] Impression and Plan Impression: DYSPHAGIA Plan: -EGD [facility] Comment on above: Result Comment: Elec tronically Signed By: Yovanny OLIVO, Katie Torres\.br\Date and Time Signed: 03/20/24 12:47 EDT 10-16-2023 Note [id number] [facility] 10-13-2023 Evaluation + Plan note Extrac clarke from: Title:ANES Post-operative Note - General Author: Shaji Bethea Jr., DO Date:10/13/23 Plan Transfer/Discharge: Transfer/Discharge Discharge when meets criteria ( From PACU to Ambulatory Surgery Unit, and To home ). Extracted from: Title:ANES Pre-operative Note - Endo Author:Niles ferreira Jr. Shaji JOVEL Date:10/13/23 Plan [place] [employer]hesi[employer] (ASA) physical status classification: Class III. Anesthetic Preoperative Plan: Anesthesia General, and -TIVA. [facility]04-05-2024 Hospital Discharge instructions Patient Education 10/13/2023 09:31:42 Colonoscopy, Care After Surgery Salam (CUSTOM) Colonoscopy Care After Surgery Please read the instructions outlined below and refer to this sheet in the next few weeks. These discharge instructions provide you with general information on caring [facility] Your doctor may also give you specific [...] Up Care 09/12/2023 10:17:58 With:Pa WEBB Address: [address] [place] [address], [address] [address]- Business (1) When: only if needed [facility]04-05-2024 NotePatient: SHEY BOSS Age: 73 years Sex: Female : 1950 Associated Diagnoses: None Author: Pa WEBB MD Subjective no changes to H & PFSt. Elizabeth HospitalComment on above:Result Comment: Electronically Signed By: Pa WEBB MD\.br\Date and Time Signed: 10/13/23 09:45 [id number] NoteChief Complaint consultation for colonoscopy HPI Staff [...] a day (at bedtime) Flonase 0.05 mg/inh [place], 2 spray(s), Nasal, Daily losartan 25 mg [...] Alcoholism: Father. Alzheimer's di (more content not included)...[facility]Result Comment: Electronically Signed By: TRACEY OLIVO, Pa Lynn\Date and Time Signed: 09/12/23 10:16 [id number] History of Present illness Narrative* Latrell Jack [...] referral to General Surgery documented [facility] [id number] NoteEXAMINATION: XR CHEST 1 V HISTORY: SHORTNESS [...] Electronically authenticated by: MEHNAZ SANTIAGO Date: 2021-11-02 16:39[facility]03-04-2022 NotePROCEDURE: XR ANKLE RT MIN 3 VIEWS [...] Electronically authenticated by: WILLARD ANAND Date: 2021-09-10 09:02[facility]03-04-2022 NotePROCEDURE: XR ANKLE RT 2V COMPARISON: 03/02/2020. HISTORY: Pain FINDINGS: 35 seconds of fluoroscopy. 5 fluoroscopic images Interval removal of internal fixation hardware. Components of 2 fractured screws across the tibiofibular syndesmosis remain on image #5 IMPRESSION: Removal of lateral fibular plate and screws Electronically authenticated by: WILLARD ANAND Date: 2021-09-10 08:30[facility] note Future Appointments Appointment Date:03/20/2024 12:15:00 PM Scheduled Provider: Location:[facility] Appointment Type:Surgery FT [facility] Evaluation note* Diagnosis Essential hypertension, benign (CMS/HCC)- Primary Essential hypertension, benign Chronic obstructive pulmonary disease, unspecified COPD type (CMS/HCC) Primary insomnia Persistent disorder of initiating or maintaining sleep Primary osteoarthritis of both knees Hiatal hernia with gastroesophageal reflux disease without esophagitis Seasonal allergic rhinitis due to pollen Screening for colon cancer Special screening for malignant neoplasms, colon Morbid obesity due to excess calories (CMS/HCC) Dyslipidemia ([facility]/HCC) Other and unspecified hyperlipidemia Encounter for long-term (current) use of medications Encounter for long-term (current) use of other medications Body mass index [BMI] 40.0-44.9, adult (Z68.41) documented in this encounter [facility] HealthcareEvaluation note* Diagnosis Memory loss- Primary Word finding difficulty EDWIN on CPAP Other insomnia Other chronic pain Generalized anxiety disorder (CMS/HCC) Generalized anxiety disorder Severe episode of recurrent major depressive disorder, without psychotic features (HCC) ([facility]/HCC) documented in this encounter [facility] HealthcareHospital course Narrative No data available for this section [facility] No data available for this section [facility] Progress note No data available for this section [facility] (narrative)* Consultation (Routine) - Pending Review Specialty Diagnoses / Procedures Referred By Contac t Referred To Contact General Surgery Diagnoses Screening for colon cancer Procedures [place] OFFICE/OUTPATIENT CARE ONE AT [facility] 60 MINUTES Latrell Jack MD [address] [place] [address] Pa Webb MD [address] [place] [address] Referral ID Status Reason Start Date Expiration Date Visits Requested Visits Authorized [id number] Pending Review Specialty Services Required 08/11/2023 02/07/2024 [...] Advanced Directives Records Found Hospital Course Note [facility] SURGERY Clinical Discharge Summary PERSON INFORMATION Name SHEY BOSS Age 68 Years 51 Sex FEMALE Language Yemeni PCP LATRELL JACK Marital Status Single Med Service Ambulatory Surgery Acct# Arrival 02/04/19 11:44:00 Visit Reason SURGERY - RELEASE TRIGGER FINGER LEFT RING FINGER AND E/O CYST LEFT RING FINGER Acuity LOS 012 05:38 Address: [address] [place] [address] Comment: PROVIDER INFORMATION VITALS INFORMATION Vital Sign [...] section and content) DATE CREATED AUTHOR 02/17/2019 [facility] DATE CREATED AUTHOR AUTHOR'S ORGANIZ ATION 08/03/2022 [facility] DATE CREATED AUTHOR AUTHOR'S ORGANIZ ATION 03/28/2024 [facility] DATE CREATED AUTHOR AUTHOR'S ORGANIZ ATION 03/30/2024 [facility] DATE CREATED AUTHOR AUTHOR'S ORGANIZ ATION 04/04/2024 [facility] DATE CREATED AUTHOR AUTHOR'S ORGANIZ ATION 04/13/2024 [facility] d[facility] Specialists EPIC Care Teams (unrecognized sec tion and content) Systems Analyst Developer Relationship Specialty Start Date End Date Latrell Jack MD [address] [place] [address] PCP - [facility] 08/05/23 Systems Analyst Developer Relationship Specialty Start Date End Date Latrell Jack MD [address] [place] [address] PCP - [facility] 08/05/23 Systems Analyst Developer Relationship Specialty Start Date End Date Latrell Jack MD [address] [place] [address] PCP - [facility] 08/05/23 Reason for Visit (unrecogniz ed section [...] BE BASED ON THE PRIMARY CLINICAL RECORDS. [facility] [employer] [facility] provides no warranty or guarantee of the accuracy or completeness of information in this document.
== END 2024-04-22 07:22 | disposition home or self-care (01) ==
LOC: MRI 07:22
PROVIDERS: PCP Family Medicine; Visit Provider Anesthesiology
DX: M48.062 Spinal stenosis, lumbar region with neurogenic claudication (principal)
CPT/HCPCS: 72148

== ENCOUNTER 2024-04-30 11:36 | Outpatient (OUT) | payer MEDICARE, OTHER, SELFPAY ==
--- NOTE | 2024-04-30 | CONS_ITS ---
CONSULTATION DATE: 04/30/2024 TO: Latrell Mckeon M.D. CHIEF COMPLAINT: Includes severe bilateral lower back pain, worse on the right side. HISTORY: She rates the pain as being 3-7/10 pain, deep, cramping in character, increased with activities such as standing, walking and even laying in the supine is quite uncomfortable. She feels most comfortable sitting. She denies any change in bowel and bladder habits or new sensory motor changes in the lower extremities. Her TAMMI on today?s visit is 34%. EXAMINATION: Notable for patient having hypoesthesia along the right L4 and L5 dermatome, 3/5 strength of her right iliopsoas, quadriceps and anterior tibialis, a depressed right patellar reflex and straight leg raise was equivocally positive at proximately 90 degrees. IMPRESSION: Our impression is patient with chronic pain secondary to spinal stenosis with neurogenic claudication and right L4 and L5 radicular process/radiculopathy. RECOMMENDATIONS: I have recommended she consider aquatic therapy. I have placed her on Zonegran 50 mg up to 100 mg at h.s. Lastly, to proceed with a right sided L4 and L5 transforaminal epidural steroid injection under fluoroscopic guidance. As part of providing excellent, safe, comprehensive care, the following was completed at our patient's visit: 1. A medication reconciliation and review to ensure accurate knowledge of current/active medications, including asking our patients to inform us about any wmcx-xjn-bimadlo medications or herbal remedies/nutritional supplements/alternative remedies. 2. A review to specifically ensure our patients have had annual screening for: elevated body mass index (BMI, see intake chart for exact total), tobacco use, screening for depression, and screening for unhealthy alcohol use. When screening is concerning, patients are provided with education and the specific recommendation to discuss the concerning health issue and treatment options with their primary care provider. SAVANAH
--- OUTSIDE RECORDS SUMMARY | 2024-04-30 11:38 | XMS_ITS | CCD ---
Author Organization [facility] CliniSyhi Care Team Providers Care Pin Worker Name Role Phone FREDY, DR CHAPARRO Attending [...] Care Unavailable Zieber, DR Blue Consulting Unavailable NADERER, DR LATRELL Flood Consulting Unavailable NADERER, DR LATRELL Flood Admitting Unavailable WEST, DR WILLARD Cárdenas Consulting Unavailable NADERER, DR LATRELL Flood Attending Unavailable NADERER, DR LATRELL Flood Primary Care Unavailable NADERER, DR LATRELL Flood Consulting Unavailable FREDY, DR CHAPARRO Consulting Unavailable NADEREOrtega, DR LATRELL Flood Primary Care Unavailable FREDY, DR CHAPARRO Admitting Unavailable FREDY, DR CHAPARRO Attending Unavailable Guero OLIVO, Latrell Primary Care Provider GUERO, LATRELL Primary Care Physician [phone] Pa WEBB Referring Unavailable NILL, Pa Vivas Attending Unavailable NILPa Diaz Admitting Unavailable Katie Hairston Referring Unavaila ble Katie Hairston Attending Unavaila ble Sarmini, Wilson Talal Admitting Unavaila ble Sarmini, Wilson Talal Referring Unavaila ble Sarmini, Wilson Talal Attending Unavaila ble Sarmini, Wilson Talal Admitting Unavaila ble Sarmini, Wilson Talal Attending Unavaila ble Pa WEBB Attending Unavailable LATRELL JACK Referring Unavailable LATRELL JACK Attending Unavailable LATRELL JACK Attending Unavailable DIOMEDES MATUTE Attending Unavailable LATRELL JACK Referring Unavailable JUJU, DIOMEDES Referring Unavailable MAO MORROW Attending Unavailable Yovanny OLIVO, Katie Torres Unavailable Saundra OLIVO, Talat Benedict Attending Unavailable Allergies Allergy Classification Reported Allergen(s) Allergy Type Date of Onset Reaction(s) Facility (1 source) Amino Acids Drug Allergy [facility] Repository Medications Current Medications Medication Drug Class(es) Dates Sig (Normalized) Sig (Original) aspirin 81 mg oral tablet (9 sources) Platelet Aggregation Inhibitor, Nonsteroidal Anti-inflammatory Drug Start: 03-05-2021 aspirin 81 mg cap Take 81 mg by mouth. 03/05/2021 Active Start: 03-05-2021 take 1 tablet by jennifer th once daily aspirin 81 mg Oral EC Tab 81 mg = 1 tab(s), Oral, Daily, Refills(s) 0, Prophylaxis Start Date: 03/05/21 Status: Ordered atorvastatin 40 mg oral tablet (9 sources) HMG-CoA Reductase Inhibitor Start: 03-12-2021 take 1 tablet by mouth at bedtime atorvastatin (Lipitor) 40 MG tablet Indications: Dyslipidemia (CMS/HCC) Take 1 tablet (40 mg) by mouth at bedtime 90 tablet 3 02/09/2024 Active Calcium (2 sources) Phosphate Binder, Calcium Start: 02-26-2024 take 1 tablet by mouth once daily Calcium Calcium, 1 tab, Oral, Daily Start Date: 02/26/24 Status: Ordered Start: 02-26-2024 Calcium Calciu m Start Date: 02/26/24 Status: Ordered calcium carbonate 1500 mg or al tablet (6 sources) calcium carbonat e (CALTRATE) 600 mg calcium (1,500 mg) tab Take 1 tablet by mouth. Active cholecalciferol 0.025 mg ora l capsule (6 sources) Vitamin D Cholecalciferol, Vitamin D3, 25 mcg (1,000 unit) cap Take 1 capsule by mouth. Active take 1 capsule by mouth once anna ly cholecalciferol (Vitamin D-3) 25 MCG (1000 UT) capsule Take 1 capsule by mouth 1 (one) time each day at the same time Active donepezil hydrochloride 5 mg oral tablet (5 sources) Start: 02-23-2024 take 1 tablet by mouth at bedtime donepezil (Aricept) 5 MG tablet Indications: 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CMS/HCC) TAKE 1 TABLET BY MOUTH AT BEDTIME 90 tablet 1 03/04/2024 Active famotidine 40 mg oral tablet (9 sources) Histamine-2 Receptor Antagonist Start: 11-08-2020 take 1 tablet by mouth once daily at bedtime famotidine 40 mg Tab 40 mg = 1 tab(s), Oral, Once a day (at bedtime), Refills(s) 0, Control of stomach acid Start Date: 03/03/21 Status: Ordered fluticasone propionate 0.05 mg/actuat metered dose nasal spray (9 sources) Corticosteroid Start: 03-26-2024 take 2 spray(s) nasal route once daily fluticasone (Flonase) 50 MCG/ACT nasal spray Indications: Seasonal allergic rhinitis due to pollen USE 2 SPRAYS IN EACH NOSTRIL DAILY 48 mL 5 03/26/2024 Active Start: 09-06-2023 fluticasone (F LONASE) 50 mcg/actuation nasal spray 2 Sprays once daily. 09/06/2023 Active Start: 09-06-2023 Flonase 0.05 m g/inh [place] 2 spray(s), Nasal, Daily, Refill(s) 0, Dry nasal passages Start Date: 09/06/23 Status: Ordered Start: 06-21-2023 take 2 spray(s) nasa l route in the morning fluticasone (Flonase) 50 MCG/ACT nasal spray Administer 2 sprays into each nostril in the morning. 0 06/21/2023 Active losartan potassium 50 mg oral tablet (9 sources) Angiotensin 2 Receptor Martin Start: 02-09-2024 losartan (COZAAR) 50 mg tablet Take 50 mg by mouth. 02/09/2024 Active Start: 09-06-2023 take 1 tablet by jennifer th once daily losartan 25 mg Tab 25 mg = 1 tab(s), Oral, Daily, Refills(s) 0, High blood pressure Start Date: 09/06/23 Status: Ordered take 1 tablet by jennifer th once daily losartan (Cozaar) 25 MG tablet Take 1 tablet by mouth 1 (one) time each day at the same time 0 Active pantoprazole 40 mg delayed release oral tablet (9 sources) Proton Pump Inhibitor Start: 03-03-[address] (PROTONIX) 40 mg tablet Take 40 mg by mouth. 03/03/2021 Active tiotropium 0.018 mg inhalation powder (6 [...] Start Date: 09/06/23 Status: Ordered Vitamin E (8 sources) Start: 02-26-2024 vitamin E Oral , Daily, Refills(s) 0, Prophylaxis Start Date: 02/26/24 Status: Ordered Start: 02-26-2024 vitamin E Oral , Refills(s) 0 Start Date: 02/26/24 Status: Ordered Vitamin E, dl, a cetate, (VITAMIN E) 400 unit capsule Take 1 capsule by mouth. Active take 1 capsule by il ut once daily alpha tocopherol (Vitamin E) 400 units capsule Take 1 capsule by mouth 1 (one) time each day at the same time Active zolpidem tartrate 12.5 mg extended release oral tablet (9 sources) gamma-Aminobutyric Acid-ergic Agonist Start: 03-03-2021 Zolpidem (AMBIEN CR) 12.5 mg CR tablet Take 12.5 mg by mouth. 03/03/2021 Active Completed/Discontinued Medications Medication Drug Class(es) Dates [...] Date Documented Da te Episodic/Chronic Abdominal hernia (17 sources) Diaphragmatic hernia without obstruction or gangrene; Translations: [Gastroesophageal reflux disease with hiatal hernia] Onset: 2 08-11-2023 Episodic Acute cerebrovascular disease (2 sources) Cerebrovascular accident; [...] (4 sources) Patient encounter status; Translations: [Other exterminator termite (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 therapy] Onset: 4 08-11-2023 Episodic [...] 02-23-2022 Episodic Other aftercare (1 source) Other exterminator termite (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 therapy; Translations: [OTH ADDICTIONS RECOVERY SPECIALIST CURRENT DRUG THERAPY] Onset: 02-23-2022 Episodic Other aftercare (1 source) [facility] (current) use of aspirin; Translations: [ALF CURRENT USE OF ASPIRIN] Onset: 02-23-2022 Episodic Other aftercare (2 sources) Long-term current use of drug therapy; Translations: [Other exterminator termite (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 therapy] Onset: 08-11-2023 08-11-2023 Episodic [...] Test Name Value Interpretation Reference Range Facility [facility] 04-22-2024 [facility] Telephone ([facility]) SHEY BOSS ([id number]) 1950 F Date Time Provider Department 04/22/24 ASHLIE CALDERON ARNOLDO During your visit today, we recorded the following information about you: Ashlie Calderon 04/22/2024 5:39 PM Signed Spoke with PT she state no prior surgeries Allergies As of Date: 04/22/2024 (Not on File) Date Reviewed: Never Reviewed Problem List As Of Date: 04/22/2024 (None) Encounter Status:Closed by PENELOPE CALDERONGold Palacio on 04/22/24 [facility] Surgical Pathology Reporton 03-26-2024 [place] [address]- Surgical Pathology Report Collected Date/Time: 03/20/2024 12:52 [...] is entirely submitted in one cassette. (DC) DC:[facility] Microscopic Description Microscopic examination performed unless gross only specified. The use of one or more reagents in the above tests is regulated as an analyte specific reagent (ASR). The test or tests are ordered following initial H&E microscopic examination. The performance characteristics were determined by the Laboratory of [facility]. They have not been cleared or approved by the US Food and Drug Administration. The FDA has determined that such clearance or approval is not necessary. These tests are used for clinical purposes. They should not be regarded as investigational or for research. Appropriate positive and negative controls are performed and are acceptable. Normal [facility] Comment on above: Performed By: #### [id number] #### [facility] [address] [place] [address] XR Esophaguson 03-26-2024 XR Esophagus Exam Date/Time: [...] mGy = 15.80 DAP = 464.17 Normal [facility] Main OR Intraoperative Recor don 03-22-2024 Main OR Intraoperative Record Main OR Intraoperative Record IntraOp Document Type FT Summary Primary Physician: Katie Hairston MD Finalized Date/Time: 03/22/24 14:46:15 Pt. Name: SHEY BOSS D.O.B./Sex: 1950 Female Med Rec #: [id number] Physician: Katie Hairston MD Financial #: [id number] Pt. Type: O Room/Bed: / Admit/Disch: 03/20/24 [...] Ivory CST, Katie Ferguson MD Role Performed LICENSED APPRAISER Scrub - Primary Surgeon - Primary Time In 03/20/24 12:44:00 03/20/24 12:44:00 03/20/24 12:44:00 Time Out 03/20/24 12:56:00 03/20/24 12:56:00 03/20/24 12:56:00 Procedure EGD(.) EGD(.) EGD(.) Comments Dr. Hairston supervising procedure. Last Modified By: Mynor SAP BASIS ARCHITECT, Violette Lopez RN, Essence Lopez RN, Essence Marsh 03/22/24 14:45:45 03/20/24 12:56:36 03/20/24 12:56:36 Entry 4 Case Attendee Essence Lopez RN Role Performed Lead Sql Developer - Primary Time In 03/20/24 12:44:00 Time [...] and tissue Entry 1 Skin Integrity Intact, Hissop, Warm, & Skin Abnormality No Dry Outcomes [...] Extended Positioning (more content not included)... Normal [facility] Discharge Instructionson Discharge Instructions Discharge Instructions SHEY [...] mg Tab) fluticasone nasal (Flonase 0.05 mg/inh [place]) losartan (losartan 25 mg Tab) multivitamin with [...] Unchanged fluticasone nasal (Flonase 0.05 mg/ inh [place]) 2 Sprays Nasal Inhalation Every day Unchanged [...] get better (more content not included)... Normal [facility] Comment on above: Result Comment: Elec tronically Signed By: Kassy Barker I\christiane\Date and Time Signed: 03/20/24 13:08 EDT Inpatient Patient Summaryon 03-20-2024 Inpatient Patient Summary Inpatient Patient Summary [place] [address] [facility] Clinical Discharge Instructions PERSON INFORMATION Name: SHEY BOSS [facility]#:[id number] PHYSICIANS Admitting Physician: Katie Hairston MD Attending [...] (at bedtime). fluticasone nasal (Flonase 0.05 mg/inh [place]) 2 Sprays Nasal Inhalation every day. losartan [...] bedtime) as needed for sleep. Comment: Normal [facility] Main OR PACU I Recordon 03-10 Main OR PACU I Record Main OR PACU I Record PACU Phase I Document Type FT Summary Primary Physician: Katie Hairston MD Finalized Date/Time: 03/20/24 13:37:02 Pt. Name: SHEY BOSS /Sex: 1950 Female Med Rec #: [id number] Physician: Katie Hairston MD Financial #: [id number] Pt. Type: O Room/Bed: / Admit/Disch: 03/20/24 [...] By: Kassy Barker I 03/20/24 13:37 Normal [facility] Main OR Preoperative Recordo n 03-20-2024 Main OR Preoperative Record Main OR Preoperative Record Holding Area Document Type FT Summary Primary Physician: Katie Hairston MD Finalized Date/Time: 03/20/24 11:17:32 Pt. Name: SHEY BOSS Tamie/Sex: 1950 Female Med Rec #: [id number] Physician: Katie Hairston MD Financial #: [id number] Pt. Type: O Room/Bed: / Admit/Disch: 03/20/24 [...] By: Essence Lopez RN 03/20/24 11:17 Normal [facility] Outpatient Surgery Discharge Instructionon 03-20-2024 Outpatient Surgery Discharge Instruction Outpatient Surgery Discharge Instruction [place] [id number] Patient Discharge Instructions PERSON INFORMATION Name: SHEY [...] to serve you. Thank you for choosing [facility] HERE ARE THE MEDICATION CHANGES THAT OCCURRED [...] (at bedtime). fluticasone nasal (Flonase 0.05 mg/inh [place]) 2 Sprays Nasal Inhalation every day. losartan [...] PATIENT EDUCATION INFORMATION Instructions: Medication Leaflets: Normal [facility] Proceduralon 03-20-2024 Procedural Procedural Patient: SHEY BOSS Age: 73 years Sex: Female : 1950 Associated Diagnoses: None Author: Ganga OLIVO, Daquan Olea Postoperative Information Postoperative disposition: Postoperative disposition: To PACU. Optimetrix number: Optimetrix number [id number]. Anesthetic utilized: General. Health Status Allergies: Allergic [...] when meets criteria ( To home ). [facility] Procedural Procedural Patient: SHEY BOSS Age: [...] 1 tab, Oral, Daily Flonase 0.05 mg/inh [place]: 2 spray(s), Nasal, Daily, Refill(s) 0, Dry [...] a day (at bedtime) Flonase 0.05 mg/inh [place] 2 spray(s), Nasal, Daily losartan 25 mg [...] All Problems BMI 39.0-39.9,adult / SNOMED CT 171637790 / Confirmed Chronic obstructive pulmonary disease / SNOMED CT 92843363 / Confirmed Dyslipidemia / SNOMED CT 3487754441 / Confirmed Dysphagia / SNOMED CT 38249630 / Confirmed GERD (gastroesophageal reflux disease) / SNOMED CT 502686354 / Confirmed Hiatal hernia / SNOMED CT 793625599 / Confirmed HTN (hypertension) / SNOMED CT 2968927310 / Confirmed Insomnia / SNOMED CT 904677346 / Confirmed Lower extremity edema / SNOMED CT 751109273 / Confirmed Morbid obesity / SNOMED CT 465237373 / Confirmed EDWIN (obstructive sleep apnea) / SNOMED CT 281050325 / Confirmed Screening for malignant neoplasm of colon / SNOMED CT 022085968 / Confirmed Seasonal allergic rhinitis / SNOMED CT 160258356 / Confirmed TIA (transient ischemic attack) / SNOMED CT 696615266 / Confirmed Resolved: At risk for falls / SNOMED CT 698490020 Problem added when Risk for Falls Careplan was initiated. Resolved due to patient discharge. Resolved: Hernia / SNOMED CT 852281981 Resolved: Potential for deficient knowledge of cerebrovascular accident (CVA) / IMO 65412470 problem added based on Stroke Powerplan ordered. Resolved due to patient discharge. Resolved: Sleep apnea / SNOMED CT 350349046, Active Problems (14) BMI 39.0-39.9,adult Chronic obstructive pulmonary disease Dyslipidemia Dysphagia GERD (gastroesophageal reflux disease) Hiatal hernia HTN (hypertension) Insomnia Lower extremity edema Morbid obesity EDWIN (obstructive sleep apnea) Screening for malignant neoplasm of colon Seasonal allergic rhinitis TIA (transient ischemic (more content not included)... Normal [facility] Ambulatory Visit Summaryon 0 02-26-2024 Ambulatory Visit [...] mg Tab) fluticasone nasal (Flonase 0.05 mg/inh [place]) losartan (losartan 25 mg Tab) multivitamin with [...] Unchanged fluticasone nasal (Flonase 0.05 mg/ inh [place]) 2 Sprays Nasal Inhalation Every day Contact [...] choosing us for your care. Kary Jernigan [facility] [...] or gangrene) reports she had esophagram in [place] no egd in the past declined surgery [...] a day (at bedtime) Flonase 0.05 mg/inh [place], 2 spray(s), Nasal, Daily losartan 25 mg [...] virus vaccine, inactivated 05/03/2022 Recorded SARS-CoV-2 (COVID-19) [id number] 05/03/2022 Recorded influenza virus vaccine, inactivated 04/12/2021 [...] influenza virus vaccine, inactivated 04/16/2015 Recorded Normal [facility] Comment on above: Result Comment: Elec tronically Signed By: Yovanny OLIVO, Katie Torres\.br\Date and Time Signed: 02/26/24 09:38 EDT IntraOperative Documentson 0 10-19-2023 IntraOperative Documents [id number] 0TIFF [facility] Consenton 10-16-2023 Consent [id number]#1.00 TIFF [facility] Discharge Instructionson Discharge Instructions [id number]#[id number] TIFF [facility] Main OR Intraoperative Recor don 10-16-2023 Main OR Intraoperative Record IntraOp Document Type FT Summary Primary Physician: Pa WEBB MD Finalized Date/Time: 10/16/23 09:46:21 Pt. Name: KARYN SHEY Willett/Sex: 1950 Female Med Rec #: [id number] Physician: Pa WEBB MD Financial #: [id number] Pt. Type: O Room/Bed: / Admit/Disch: 10/13/23 07:49:21 - 10/13/23 23:59:59 Institution: Case Times FT Entry 1 Patient Times In Room 10/13/23 08:55:00 Out Room 10/13/23 09:16:00 Procedure Times Start 10/13/23 08:59:00 Stop 10/13/23 09:12:00 Anesthesia Times Start 10/13/23 08:55:00 Stop 10/13/23 09:16:00 Time at [place] 10/13/23 09:03:00 Last Modified By: Naresh FORDE, Kimberly Gross 10/13/23 09:16:34 General Comments: 10/16/23 Chart opened for charge review only per Danilo Bennett RN. [place] Case Attendance FT Entry 1 Entry 2 Entry 3 Case Attendee Rajwinder DRAPER, Valentin WEBB MD, Pa Infante RN, Kimberly Gross Role Performed Anesthesiologist Surgeon - Primary Lead Sql Developer - Primary Consumer Education Specialist Time In 10/13/23 08:55:00 10/13/23 08:55:00 10/13/23 08:55:00 Time Out 10/13/23 09:16:00 10/13/23 09:16:00 10/13/23 09:16:00 Procedure COLONOSCOPY(.) COLONOSCOPY(.) COLONOSCOPY(.) Comments DR BETHEA SUPERVISING Last Modified By: Naresh RN, Kimberly Infante RN, Kimberly Nicholas RN 10/13/23 [...] and tissue Entry 1 Skin Integrity Intact, Hissop, Warm, and Skin Abnormality No Dry Outcomes [...] Infante RN (more content not included)... Normal [facility] Postoperative Documentson Postoperative Documents [id number] TIFF Normal [facility] Reminderson 10-16-2023 Reminders - From: Nhi Aguirre LPN To: N - Clinical; Sent: 10/16/2023 10:15:48 EDT Show up: 09/11/2033 07:00:00 EST Subject: colonoscopy recall Due Date/Time: 10/12/2033 07:00:00 EDT Reminder/Recall Patient due for screening colonoscopy 10/12/2033. Normal [facility] Colonoscopy Procedure Report on 10-13-2023 Colonoscopy Procedure [...] for screening for malignant neoplasm of rectum ([id number] Z12.12, Discharge, Medical). Course: Progressing as expected. Recommendations: Repeat colonoscopy:: In 10 years. Follow-up:: if problems/questions. Diet:: Regular diet. Medication resumption:: Continue current medications. Return to activities:: After 24 hours. Education and Follow-up: Counseled: Family. [facility] Comment on above: Other Comment: Samreen duñeas Attachment - attachment storage system not supported [id number] Can be viewed in source systemMissing Attachment - attachment storage system not supported [id number] Can be viewed in source systemMissing Attachment - attachment storage system not supported [id number] Can be viewed in source systemMissing Attachment - attachment storage system not supported [id number] Can be viewed in source systemMissing Attachment - attachment storage system not supported [id number] Can be viewed in source system Consent for Treatmenton Consent for Treatment [id number] IFF [facility] Discharge Instructionson Discharge Instructions SHEY BOSS [...] mg Tab) fluticasone nasal (Flonase 0.05 mg/inh [place]) losartan (losartan 25 mg Tab) multivitamin with [...] When: Only if needed Where: [address], [address] [place] [id number] Business (1) Medications What How Much When [...] Unchanged fluticasone nasal (Flonase 0.05 mg/ inh [place]) 2 Sprays Nasal Inhalation Every day Unchanged [...] as instru (more content not included)... Normal [facility] Comment on above: Result Comment: Elec tronically Signed By: Marcy FORDE, Mariaelena\.maikol\Date and Time Signed: 10/13/23 09:33 EDT Inpatient Patient Summaryon 10-13-2023 Inpatient Patient Summary [address] [address] [facility] Clinical Discharge Instructions PERSON INFORMATION Name: SHEY BOSS [facility]#:[id number] PHYSICIANS Admitting Physician: Pa WEBB MD Attending Physician: Pa WEBB MD PCP: GUERO OLIVO, LATRELL Discharge Diagnosis: Encounter for colorectal cancer screening; Encounter for screening for malignant neoplasm of rectum Comment: PATIENT EDUCATION INFORMATION Instructions: Medication Leaflets: Follow up: With: Address: When: Pa WEBB [address] [facility], [address], [employer] [address] [address] Business (1) , only if [...] (at bedtime). fluticasone nasal (Flonase 0.05 mg/inh [place]) 2 Sprays Nasal Inhalation every day. losartan [...] bedtime) as needed for sleep. Comment: Normal [facility] Main OR PACU I Recordon Main OR PACU I Record PACU Phase I Document Type FT Summary Primary Physician: Pa WEBB MD Finalized Date/Time: 10/13/23 09:54:27 Pt. Name: SHEY BOSS D.O.B./Sex: 1950 Female [facility] Rec #: [id number] Physician: Pa WEBB MD Financial #: [id number] Pt. Type: O Room/Bed: / Admit/Disch: 10/13/23 [...] I Outcomes Met? Yes Last Modified By: Marcy FORDE, Mariaelena 10/13/23 09:54:20 Post-Care Text: The patient demonstrates [...] By: Mariaelena Vidal RN 10/13/23 09:54 Normal [facility] Main OR Preoperative Recordo n 10-13-2023 Main OR Preoperative Record Holding Area Document Type FT Summary Primary Physician: Pa WEBB MD Finalized Date/Time: 10/13/23 08:06:06 Pt. Name: SHEY BOSS Tamie/Sex: 1950 Female Med Rec #: [id number] Physician: Pa WEBB MD Financial #: [id number] Pt. Type: O Room/Bed: / Admit/Disch: 10/13/23 [...] Signed By: Olivia Domínguez 10/13/23 08:06 Normal [facility] Monitor Recordon 10-13-2023 Monitor Record [id number] TIFF Normal [facility] Monitor Record [id number] TIFF Normal [facility] Outpatient Surgery Discharge Instructionon 10-13-2023 Outpatient Surgery Discharge Instruction [place] [id number] Patient Discharge Instructions PERSON INFORMATION Name: SHEY [...] Date Follow up: With: Address: When: [address], [address], [facility] [address] [place] [address] Business (1) , only if needed Pharmacy Information: You may receive a survey from [facility] asking you to rate your care experience. Your feedback is important and will help us understand what we do well and how we can improve the quality of care we provide to you, your loved ones and our community. It?s an honor to serve you. Thank you for choosing [facility] HERE ARE THE MEDICATION CHANGES THAT OCCURRED [...] (at bedtime). fluticasone nasal (Flonase 0.05 mg/inh [place]) 2 Sprays Nasal Inhalation every day. losartan [...] sleep. PATIENT EDUCATION INFORMATION Instructions: Medication Leaflets: [facility] Patient Education - Texton 0 10-13-2023 [...] severe or gets worse throughout the day. [facility] Progress Note-Physicianon Progress Note-Physician Patient: SHEY BOSS Age: 73 years Sex: Female : 1950 Associated Diagnoses: None Author: Shaji Bethea Jr., DO Postoperative Information Postoperative disposition: Postoperative disposition: Home. Optimetrix number: Optimetrix number [id number]. Anesthetic utilized: General. Physical Examination Vital Signs [...] Surgery Unit, and To home ). Normal [facility] Comment on above: Result Comment: Elec tronically [...] m2 Documented Medications Documented Flonase 0.05 mg/inh [place]: 2 spray(s), Nasal, Daily, Refill(s) 0, Dry [...] a day (at bedtime) Flonase 0.05 mg/inh [place] 2 spray(s), Nasal, Daily losartan 25 mg [...] All Problems BMI 39.0-39.9,adult / SNOMED CT 440614765 / Confirmed Chronic obstructive pulmonary disease / SNOMED CT 44121597 / Confirmed Dyslipidemia / SNOMED CT 3142858416 / Confirmed GERD (gastroesophageal reflux disease) / SNOMED CT 475057063 / Confirmed Hiatal hernia / SNOMED CT 528506811 / Confirmed HTN (hypertension) / SNOMED CT 9936868003 / Confirmed Insomnia / SNOMED CT 142779450 / Confirmed Lower extremity edema / SNOMED CT 159024850 / Confirmed Morbid obesity / SNOMED CT 547688398 / Confirmed EDWIN (obstructive sleep apnea) / SNOMED CT 749532708 / Confirmed Screening for malignant neoplasm of colon / SNOMED CT 476638623 / Confirmed Seasonal allergic rhinitis / SNOMED CT 457634255 / Confirmed TIA (transient ischemic attack) / SNOMED CT 323683398 / Confirmed Resolved: At risk for falls / SNOMED CT 887389786 Problem added when Risk for Falls Careplan was initiated. Resolved due to patient discharge. Resolved: Hernia / SNOMED CT 945264555 Resolved: Potential for deficient knowledge of cerebrovascular accident (CVA) / IMO 39256911 problem added based on Stroke Powerplan ordered. Resolved due to patient discharge. Resolved: Sleep apnea / SNOMED CT 311766980 Histories Past Medical History: Resolved Hernia (480485928): Resolved. Sleep apnea (660212311): Resolved. Procedure history: ORIF - Open reduction of fracture of ankle with internal fixation ([id number]). Meniscal repair (408941890). Tonsillectomy (105928077). Hand tendon repaired (074807296). Social History Social & Psychosocial Habits Alcohol 09/12/2023 Frequency: 1-2 times per year Substance Abuse Comment: denies - 03/03/2021 07:19 - Terry FORDE, Carolyn Gil 09/12/2023 Risk Assessment: Denies Substance Abuse Tobacco 09/12/2023 Tobacco Use: Former smoker, quit more Smokeless tobacco use: Never Type: Cigarettes . Physical Examination Vital Signs 10/13/2023 8:03 EDT Temperature Temporal Artery 36.3 DegC (more content not included)... Normal [facility] Comment on above: Result Comment: Elec tronically Signed By: Shaji Bethea Jr., DO\.maikol\Date and Time Signed: 10/13/23 08:04 EDT Consent for Procedure/Surger yon 09-13-2023 Consent for Procedure/Surgery [id number]#[id number] FF Normal [facility] Ambulatory Visit Summaryon 0 09-12-2023 Ambulatory Visit [...] mg Tab) fluticasone nasal (Flonase 0.05 mg/inh [place]) losartan (losartan 25 mg Tab) multivitamin with [...] Unchanged fluticasone nasal (Flonase 0.05 mg/ inh [place]) 2 Sprays Nasal Inhalation Every day Contact [...] for choosing us for your care. Normal [facility] Provider Letteron 08-25-2023 Provider Letter (Inserted Image. Celia ble to display) August 25, 2023 SHE[address]N [address] [place] [address] : 1950 Dear Ms. Boss, We have been trying to reach you with no success regarding a referral from Dr Jack. It is important that you return our call upon receiving this letter so that we can set up an appointment for you in either our [place] or [place] office. Also, at the time of your call, please provide us with your current demographic and insurance information. Thank you for your prompt attention to this matter. Sincerely, [facility] General Surgery [phone] Normal [facility] Physician Referralon 024 Physician Referral [id number]#[id number] IFF Normal [facility] CT LUNG CANCER SCREENINGon 0 07-28-2022 CT [...] MEHNAZ SANTIAGO Date: 2022-07-28 15:28 Normal [facility] BNPon 02-22-2022 Natriuretic peptide B (Bld) [Mass/Vol] 108.0 pg/mL Normal <=900.0 [facility] Comment on above: Performed By: #### B MP, BNP, HSTROPN ####[facility] [address] [place] [address]Dr. Felisa Trujillo CBC AUTO DIFFon 02-22-2022 BASO # 0.0 103/ul Normal 0.0-0.1 [facility] Comment on above: Performed By: #### C BC ####[facility] [address] [place], [place] [address]Dr. Felisa Trujillo Basophils/100 WBC (Bld) 0.7 % Normal 0.2-2.0 [facility] Comment on above: Performed By: #### C BC ####[facility] Xrvqqxp[address] [place], [place] [address]Dr. Felisa Trujillo EO # 0.1 103/ul Normal 0.0-0.7 [facility] Comment on above: Performed By: #### C BC ####[facility] [address] [place], [place] [address]Dr. Felisa Trujillo Eosinophils/100 WBC (Bld) 1.4 % Normal 0.9-7.0 [facility] Comment on above: Performed By: #### C BC ####[facility] [address]wed[address] [place], [place] [address]Dr. Felisa Trujillo Erythrocyte distribution width (RBC) [Ratio] 13.2 % Normal 11.0-15.0 [facility] Comment on above: Performed By: #### C BC ####[facility] [address] [place] [address]Dr. Felisa Trujillo Hematocrit (Bld) [Volume fraction] 36.6 % Normal 36.0-48.0 [facility] Comment on above: Performed By: #### C BC ####[facility] [address] [place] [address]Dr. Felisa Trujillo Hemoglobin (Bld) [Mass/Vol] 12.7 g/dL Normal 12.0-16.0 [facility] Comment on above: Performed By: #### C BC ####[facility] [address] [place] [address]Dr. Felisa Trujillo IG # 0.01 10e3/ul Normal 0.00-0.03 [facility] Comment on above: Performed By: #### C BC ####[facility] [address] [place] [address]Dr. Felisa Trujillo IG % 0.2 % Normal 0.0-0.5 [facility] Comment on above: Performed By: #### C BC ####[facility] [address] [place] [address]Dr. Felisa Trujillo LYMPH # 1.0 103/ul Critically low 1.2-3.8 [facility] Comment on above: Performed By: #### C BC ####[facility] [address] [place] [address]Dr. Felisa Trujillo Lymphocytes/100 WBC (Bld) 22.3 % Normal 20.5-60.0 [facility] Comment on above: Performed By: #### C BC ####[facility] [address] [place] [address]Dr. Felisa Trujillo MANUAL DIFF REQ NO Normal [facility] Comment on above: Performed By: #### C BC ####[facility] [address] [place], [place] [address]Dr. Felisa Trujillo MCH (RBC) [Entitic mass] 31.8 pg Normal 26.7-34.0 [facility] Comment on above: Performed By: #### C BC ####[facility] [address] [place] [id number]. Felisa Trujillo MCHC (RBC) [Mass/Vol] 34.7 g/dL Normal 29.9-35.2 [facility] Comment on above: Performed By: #### C BC ####[facility] [address] [place] [address]Dr. Felisa Trujillo MCV (RBC) [Entitic vol] 91.7 fL Normal 81.0-99.0 [facility] Comment on above: Performed By: #### C BC ####[facility] [address] [place] [address]Dr. Felisa Ronnie MONO # 0.5 103/ul Normal 0.3-0.8 [facility] Comment on above: Performed By: #### C BC ####[facility] [address] [place] [address]Dr. Felisa Trujillo Monocytes/100 WBC (Bld) 11.7 % Normal 1.7-12.0 [facility] Comment on above: Performed By: #### C BC ####[facility] [address] [place], [place] [address]Dr. Felisa Trujillo NEUT # 2.7 103/ul Normal 1.4-6.5 [facility] Comment on above: Performed By: #### C BC ####[facility] [address] [place] [address]Dr. Felisa Trujillo Neutrophils/100 WBC (Bld) 63.7 % Normal 43.0-75.0 [facility] Comment on above: Performed By: #### C BC ####[facility] [address] [place], [place] [address]Dr. Felisa Ronnie Platelet mean volume (Bld) [Entitic vol] 10.2 fL Normal 9.5-13.5 [facility] Comment on above: Performed By: #### C BC ####[facility] [address] [place] [address]Dr. Krystakun Ronnie PLT 149 103/ul Critically low 150-450 [facility] Comment on above: Performed By: #### C BC ####[facility] [address] [place], [place] [address]Ap. Felisa Trujillo RBC 3.99 106/ul Critically low 4.20-5.40 [facility] Comment on above: Performed By: #### C BC ####[facility] [address] [place], [place] [address]Dw. Felisa Trujillo WBC 4.3 103/ul Normal 4.0-11.0 [facility] Comment on above: Performed By: #### C BC ####[facility] [address]ci[address] [place], [place] [address]Cc. Felisa Trujillo Covid-19 PCR (CVDTBH)on 02-07 SARS-CoV-2 (COVID-19) RNA DUGLAS+probe Ql (Unsp spec) Detected Critically abnormal NOT DETECTED [facility] Comment on above: Result Comment: This test is not yet approved or cleared by the [place] FDA. When there are no FDA-approved or cleared tests available, and other criteria are met, FDA can make tests available under an emergency access mechanism called an Emergency Use Authorization (EUA). The EUA for this test is supported by the [place] of Health and Human Service's declaration that [...] be used). Performed By: #### C VDTBH ####[facility] [address] [place] [id number]. Felisa Trujillo PROF CHEM 8 (BAS METB)on Anion gap [Moles/Vol] 14.9 mmol/L Normal [facility] Comment on above: Performed By: #### B MP, BNP, HSTROPN ####[facility] [address] [place], [place] [address]Lz. Felisa Trujillo Calcium [Mass/Vol] 8.9 mg/dL Normal 8.5-10.1 [facility] Comment on above: Performed By: #### B MP, BNP, HSTROPN ####[facility] [address] [place] [address]Dr. Felisa Trujillo Chloride [Moles/Vol] 104 mmol/L Normal 98-107 [facility] Comment on above: Performed By: #### B MP, BNP, HSTROPN ####[facility] [address] [place] [address]Dr. Felisa Trujillo CO2 [Moles/Vol] 24.0 mmol/L Normal 21.0-32.0 [facility] Comment on above: Performed By: #### B MP, BNP, HSTROPN ####[facility] [address] [place], [place] [address]Dr. Felisa Trujillo Creatinine [Mass/Vol] 0.98 mg/dL Normal 0.55-1.02 [facility] Comment on above: Performed By: #### B MP, BNP, HSTROPN ####[facility] [address] [place], [place] [address]Dr. Felisa Trujillo EGFR-AF IRAQI >60 Normal >=60 [facility] Comment on above: Performed By: #### B MP, BNP, HSTROPN ####[facility] [address] [place], [place] [address]Dr. Felisa Trujillo EGFR-NON AF IRAQI 56 mL/min/1.73m2 Critically low >=60 [facility] Comment on above: Performed By: #### B MP, BNP, HSTROPN ####[facility] [address] [place], [place] [address]Dr. Felisa Trujillo Glucose [Mass/Vol] 136 mg/dL Critically high 74-106 [facility] Comment on above: Performed By: #### B MP, BNP, HSTROPN ####[facility] [address] [place], [place] [address]Dr. Felisa Trujillo Potassium [Moles/Vol] 3.9 mmol/L Normal 3.5-5.1 [facility] Comment on above: Performed By: #### B MP, BNP, HSTROPN ####[facility] [address] [place], [place] [address]Dq. Felisa Trujillo Sodium [Moles/Vol] 139 mmol/L Normal 136-145 [facility] Comment on above: Performed By: #### B MP, BNP, HSTROPN ####[facility] [address] [place], [place] [address]Xo. Felisa Trujillo Urea nitrogen [Mass/Vol] 14.0 mg/dL Normal 7.0-18.0 [facility] Comment on above: Performed By: #### B MP, BNP, HSTROPN ####[facility] [address] [place], [place] [address]Nf. Felisa Trujillo Urea nitrogen/Creatinine [Mass ratio] 14.3 mg/mg Normal [facility] Comment on above: Performed By: #### B MP, BNP, HSTROPN ####[facility] [address] [place] [id number]. Felisa Trujillo TROPONIN, HIGH SENSITIVITYon 02-22-2022 HSTROP 5.9 pg/mL Normal 4.0-51.3 [facility] Comment on above: Result Comment: CUT- OFF POINTS HAVE BEEN ESTABLISHED BASED ON THE FOURTH UNIVERSAL DEFINITIONS OF MYOCARDIAL INFARCTION. THE UPPER REFERENCE LIMIT (URL) OF TROPONIN, DEFINED THE 99TH PERCENTILE OF cTnI DISTRIBUTION IN A REFERENCE POPULATION, HAS BEEN CONFIRMED THE DECISION THRESHOLD FOR MD DIAGNOSIS. Performed By: #### B MP, BNP, HSTROPN ####[facility] [address] [place] [id number]. Felisa Trujillo XR CHEST 1 Von 02-22-2022 [...] MEHNAZ SANTIAGO Date: 2022-02-22 13:30 Normal [facility] MG MAMM SCREEN 3D RONALD CADon 11-11-2021 MG MAMM SCREEN 3D RONALD CAD Patient: SHEY BOSS Exam Date: 11/11/2021 : 1950 Gender:F Ordering : DR LATRELL JACK . Admission #: [id number] Family : Order #: [id number] CLICK HERE TO VIEW EXAM RADIOLOGY REPORT [...] lung cancer at age 46. LOCATION: [facility] BREAST COMPOSITION: Almost entirely fatty. FINDINGS: [...] MD on 11/11/2021 at 13:04 Normal [facility] BNPon 11-02-2021 Natriuretic peptide B (Bld) [Mass/Vol] 42.0 pg/mL Normal <=900.0 [facility] Comment on above: Performed By: #### H STROPN, CMP, BNP #### [facility] [address] [place] [address] [address] Felisa Trujillo CBC AUTO DIFFon 11-02-2021 BASO # 0.1 103/ul Normal 0.0-0.1 [facility] Comment on above: Performed By: #### C BC #### [facility] [address] [place] [address] [address] [address] Felisa Trujillo Basophils/100 WBC (Bld) 0.8 % Normal 0.2-2.0 [facility] Comment on above: Performed By: #### C BC #### [facility] [address] [place] [address] Dr. Felisa Trujillo EO # 0.3 103/ul Normal 0.0-0.7 [facility] Comment on above: Performed By: #### C BC #### [facility] [address] [place] [address] Dr. Felisa Trujillo Eosinophils/100 WBC (Bld) 3.9 % Normal 0.9-7.0 [facility] Comment on above: Performed By: #### C BC #### [facility] [address] [place] [address] Dr. Felisa Trujillo Erythrocyte distribution width (RBC) [Ratio] 12.7 % Normal 11.0-15.0 [facility] Comment on above: Performed By: #### C BC #### [facility] [address] [place] [address] Dr. Felisa Trujillo Hematocrit (Bld) [Volume fraction] 40.2 % Normal 36.0-48.0 [facility] Comment on above: Performed By: #### C BC #### [facility] [address] [place] [address] Dr. Felisa Trujillo Hemoglobin (Bld) [Mass/Vol] 13.6 g/dL Normal 12.0-16.0 [facility] Comment on above: Performed By: #### C BC #### [facility] [address] [place] [address] Dr. Felisa Trujillo IG # 0.02 10e3/ul Normal 0.00-0.03 [facility] Comment on above: Performed By: #### C BC #### [facility] [address] [place] [address] Dr. Felisa Trujillo IG % 0.3 % Normal 0.0-0.5 [facility] Comment on above: Performed By: #### C BC #### [facility] [address] [place] [address] Dr. Felisa Trujillo LYMPH # 1.9 103/ul Normal 1.2-3.8 [facility] Comment on above: Performed By: #### C BC #### [facility] [address] [place] [address] Dr. Felisa Trujillo Lymphocytes/100 WBC (Bld) 30.0 % Normal 20.5-60.0 [facility] Comment on above: Performed By: #### C BC #### [facility] [address] [place] [address] Dr. Felisa Trujillo MANUAL DIFF REQ NO Normal [facility] Comment on above: Performed By: #### C BC #### [facility] [address] [place] [address] Dr. Felisa Trujillo MCH (RBC) [Entitic mass] 31.5 pg Normal 26.7-34.0 [facility] Comment on above: Performed By: #### C BC #### [facility] [address] [place] [address] Dr. Felisa Trujillo MCHC (RBC) [Mass/Vol] 33.8 g/dL Normal 29.9-35.2 [facility] Comment on above: Performed By: #### C BC #### [facility] [address] [place] [address] Dr. Felisa Trujillo MCV (RBC) [Entitic vol] 93.1 fL Normal 81.0-99.0 [facility] Comment on above: Performed By: #### C BC #### [facility] [address] [place] [address] Dr. Felisa Trujillo MONO # 0.6 103/ul Normal 0.3-0.8 [facility] Comment on above: Performed By: #### C BC #### [facility] [address] [place] [address] Dr. Felisa Trujillo Monocytes/100 WBC (Bld) 8.5 % Normal 1.7-12.0 [facility] Comment on above: Performed By: #### C BC #### [facility] [address] [place] [address] Dr. Felisa Trujillo NEUT # 3.7 103/ul Normal 1.4-6.5 [facility] Comment on above: Performed By: #### C BC #### [facility] [address] [place] [address] Dr. Felisa Trujillo Neutrophils/100 WBC (Bld) 56.5 % Normal 43.0-75.0 [facility] Comment on above: Performed By: #### C BC #### [facility] [address] [place] [address] Dr. Felisa Trujillo Platelet mean volume (Bld) [Entitic vol] 9.9 fL Normal 9.5-13.5 [facility] Comment on above: Performed By: #### C BC #### [facility] [address] [place] [address] Dr. Felisa Trujillo PLT 193 103/ul Normal 150-450 [facility] Comment on above: Performed By: #### C BC #### [facility] [address] [place] [address] Dr. Felisa Trujillo RBC 4.32 106/ul Normal 4.20-5.40 [facility] Comment on above: Performed By: #### C BC #### [facility] [address] [place] [address] Dr. Felisa Trujillo WBC 6.5 103/ul Normal 4.0-11.0 [facility] Comment on above: Performed By: #### C BC #### [facility] [address] [place] [address] Dr. Felisa Trujillo Cov[facility]on 10-09 SARS-CoV-2 (COVID-19) RNA DUGLAS+probe Ql (Unsp spec) Not detected Normal NOT DETECTED [facility] Comment on above: Result Comment: When [...] for this test is supported by the [place] of Health and Human Service's declaration that [...] used). Performed By: #### C VDTBH #### [facility] [address] [place] [address] [address] Felisa Trujillo LACTATE/LACTIC ACIDon 2021 Lactate [Moles/Vol] 1.0 mmol/L Normal 0.4-2.0 [facility] Comment on above: Performed By: #### L ACT ####[facility] [address] [place] [address]Dr. Felisa Trujillo PH VENOUS BLOODon 11-02-2021 PCO2 VENOUS 40.3 mmHg Normal 40.0-52.0 [facility] Comment on above: Performed By: #### P HVEN ####[facility] [address] [place] [address]Dr. Felisa Trujillo pH VENOUS 7.431 Critically high 7.330-7.430 [facility] Comment on above: Performed By: #### P HVEN ####[facility] [address] [place] [address]Dr. Felisa Trujillo PROF 14(COMP METB)on 022 Albumin [Mass/Vol] 4.1 g/dL Normal 3.4-5.0 [facility] Comment on above: Performed By: #### H STROPN, CMP, BNP ####[facility] [address] [place] [address]Dr. Felisa Trujillo Albumin/Globulin [Mass ratio] 1.1 {ratio} Normal [facility] Comment on above: Performed By: #### H STROPN, CMP, BNP ####[facility] [address] [place] [address]Dr. Felisa Trujillo ALP [Catalytic activity/Vol] 120 U/L Critically high 46-116 [facility] Comment on above: Performed By: #### H STROPN, CMP, BNP ####[facility] [address]ch[address] [place] [address]Dr. Felisa Trujillo ALT [Catalytic activity/Vol] 29 U/L Normal 14-59 [facility] Comment on above: Performed By: #### H STROPN, CMP, BNP ####[facility] [address] [place] [address]Dr. Felisa Trujillo Anion gap [Moles/Vol] 14.2 mmol/L Normal [facility] Comment on above: Performed By: #### H STROPN, CMP, BNP ####[facility] [address] [place], [place] [address]Dr. Felisa Trujillo AST [Catalytic activity/Vol] 24 U/L Normal 15-37 [facility] Comment on above: Performed By: #### H STROPN, CMP, BNP ####[facility] [address] [place], [place] [address]Dr. Felisa Trujillo Bilirubin [Mass/Vol] 0.6 mg/dL Normal 0.2-1.0 [facility] Comment on above: Performed By: #### H STROPN, CMP, BNP ####[facility] [address] [place], [place] [address]Dr. Felisa Trujillo Calcium [Mass/Vol] 8.8 mg/dL Normal 8.5-10.1 [facility] Comment on above: Performed By: #### H STROPN, CMP, BNP ####[facility] [address] [place], [place] [address]Dr. Felisa Trujillo Chloride [Moles/Vol] 103 mmol/L Normal 98-107 [facility] Comment on above: Performed By: #### H STROPN, CMP, BNP ####[facility] [address] [place], [place] [address]Dr. Felisa Trujillo CO2 [Moles/Vol] 25.3 mmol/L Normal 21.0-32.0 [facility] Comment on above: Performed By: #### H STROPN, CMP, BNP ####[facility] [address] [place], [place] [address]Dr. Felisa Trujillo Creatinine [Mass/Vol] 0.86 mg/dL Normal 0.55-1.02 [facility] Comment on above: Performed By: #### H STROPN, CMP, BNP ####[facility] [address] [place] [address]Dr. Felisa Trujillo EGFR-AF IRAQI >60 Normal >=60 [facility] Comment on above: Performed By: #### H STROPN, CMP, BNP ####[facility] [address] [place] [address]Dr. Felisa Trujillo EGFR-NON AF IRAQI >60 Normal >=60 [facility] Comment on above: Performed By: #### H STROPN, CMP, BNP ####[facility] [address] [place] [address]Dr. Felisa Trujillo Globulin (S) [Mass/Vol] 3.6 g/dL Normal [facility] Comment on above: Performed By: #### H STROPN, CMP, BNP ####[facility] [address] [place] [address]Dr. Felisa Trujillo Glucose [Mass/Vol] 90 mg/dL Normal 74-106 [facility] Comment on above: Performed By: #### H STROPN, CMP, BNP ####[facility] [address] [place], [place] [address]Dr. Felisa Trujillo Potassium [Moles/Vol] 3.5 mmol/L Normal 3.5-5.1 [facility] Comment on above: Performed By: #### H STROPN, CMP, BNP ####[facility] [address] [place] [address]Dr. Krystakun Trujillo Protein [Mass/Vol] 7.7 g/dL Normal 6.1-8.2 [facility] Comment on above: Performed By: #### H STROPN, CMP, BNP ####[facility] [address] [place] [address]Dr. Felisa Trujillo Sodium [Moles/Vol] 139 mmol/L Normal 136-145 [facility] Comment on above: Performed By: #### H STROPN, CMP, BNP ####[facility] [address] [place] [address]Dr. Felisa Trujillo Urea nitrogen [Mass/Vol] 13.0 mg/dL Normal 7.0-18.0 [facility] Comment on above: Performed By: #### H STROPN, CMP, BNP ####[facility] [address] [place] [id number]. Felisa Trujillo Urea nitrogen/Creatinine [Mass ratio] 15.1 mg/mg Normal [facility] Comment on above: Performed By: #### H STROPN, CMP, BNP ####[facility] [address] [place] [id number]. Felisa Trujillo PROTIMEon 11-02-2021 INR Coag (PPP) [Relative time] 0.99 {INR} Normal [facility] Comment on above: Performed By: #### P TT, PT #### [facility] [address] [address] [address] Felisa Trujillo INR GUIDELINES SEE BELOW Normal [facility] Comment on above: Result Comment: KAY RED INR: 2.0 - 3.0 CONDITIONS NOT LISTED BELOW 2.5 - 3.5 FOR PROSTHETIC HEART VALVE REPLACEMENT 2.5 - 3.5 RECURRENT THROMBOSIS Performed By: #### P TT, PT #### [facility] [address] [place] [address] [address] Felisa Trujillo PT Coag (PPP) [Time] 10.7 s Normal 9.0-11.6 [facility] Comment on above: Performed By: #### P TT, PT #### [facility] [address] [address] [address] Felisa Trujillo PTTon 11-02-2021 aPTT Coag (Bld) [Time] 25.9 s Normal 22.3-36.2 [facility] Comment on above: Performed By: #### P TT, PT #### [facility] [address] [place] [address] Dr. Felisa Trujillo TROPONIN, HIGH SENSITIVITYon 11-02-2021 HSTROP 8.7 pg/mL Normal 4.0-51.3 [facility] Comment on above: Result Comment: CUT- OFF POINTS HAVE BEEN ESTABLISHED BASED ON THE FOURTH UNIVERSAL DEFINITIONS OF MYOCARDIAL INFARCTION. THE UPPER REFERENCE LIMIT (URL) OF TROPONIN, DEFINED THE 99TH PERCENTILE OF cTnI DISTRIBUTION IN A REFERENCE POPULATION, HAS BEEN CONFIRMED THE DECISION THRESHOLD FOR MD DIAGNOSIS. Performed By: #### H STROPN, CMP, BNP #### [facility] [address] [place], [place] [address] Dr. Felisa Trujillo Covid-19 PCR ([facility])on SARS-CoV-2 (COVID-19) RNA DUGLAS+probe Ql (Unsp spec) Not detected Normal NOT DETECTED [facility] Comment on above: Result Comment: This test is not yet approved or cleared by the [place] FDA. When there are no FDA-approved or cleared tests available, and other criteria are met, FDA can make tests available under an emergency access mechanism called an Emergency Use Authorization (EUA). The EUA for this test is supported by the Pc Technician of Health and Human Service's (HHS's) declaration [...] SARS-CoV-2. Performed By: #### C VDTBH #### [facility] [address] [place], [place] [address] Dr. Felisa Trujillo XR CHEST 2 Von [...] by: MEHNAZ SANTIAGO Date: 2021-09-02 14:39 Normal [facility] Lab - AP Resultson 9 Lab - AP Results [id number] [facility] Pathology Sendout Teston Pathology Send Out. See Report [facility] Comment on above: Order Comment: left ring finger , cyst tendon sheath Performed By: #### 2 [id number] ####[facility] (DEFAULT)[address] [place] [address] Coding Summaryon 02-08-2019 Coding Summary CODING DATE: 019 [facility] STATUS: Home PAYOR: Medicare MC APC DESCRIPTION 5112 Level 2 Musculoskeletal Procedures ADMIT DX: REASON FOR VISIT DX: M65.342 Trigger finger, left ring finger FINAL DX: PRINCIPAL: M65.342 Trigger finger, left ring finger SECONDARY: M67.442 Ganglion, left hand J44.9 Chronic obstructive pulmonary disease, unspecified PYMT PROC APC STAT DESCRIPTION DOCTOR NAME DATE 18957 5112 J1 Excision of lesion of Daquan [...] Cassy Bradley Date Saved: 02/08/2019 11:52 am [facility] Consent Formson 02-05-2019 Consent Forms [id number] [facility] Discharge Instructionson Discharge Instructions [id number] [facility] History and Physicalon 02-05 History and Physical [id number] [facility] MAGR Intraoperative Recordon 02-05-2019 MAGR Intraoperative Record MAGR Intra-Op Record Summary Primary Physician: Daquan Antunez DO Finalized Date/Time: 02/05/19 07:41:01 Pt. Name: SHEY BOSS /Sex: 1950 FEMALE Med Rec #: [id number] Physician: Daquan Antunez DO Financial #: [id number] Pt. Type: D Room/Bed: / Admit/Disch: 02/04/19 [...] Role Performed Surgeon - Primary Anesthesiologist of Lead Sql Developer Record Time In 02/04/19 15:31:00 02/04/19 15:31:00 02/04/19 15:31:00 Time Out 02/04/19 16:08:00 02/04/19 16:08:00 02/04/19 16:08:00 Procedure Trigger Finger Release Trigger Finger Release Trigger Finger Release Last Modified By: Toshia Plascencia RN, Barbara RN Long, Barbara RN 02/04/19 16:16:05 02/04/19 16:16:05 02/04/19 16:16:05 Entry 4 Entry 5 Case Attendee Paloma Esparza Regina CST Role Performed Scrub Personnel Submarine Cable Equipment Technician Time In 02/04/19 15:31:00 02/04/19 15:31:00 Time [...] Modify Pick List 02/05/19 07:40 MHBLONG Modify [facility] List [facility] Medication Managementon 01-09 Medication Management [id number] GTIFF [facility] Provider Orderson 02-05-2019 Provider Orders [id number] GTIFF Normal [facility] Anesthesia Noteon 02-04-2019 Anesthesia Note Patient: SHEY [...] Problems Chronic back pain / SNOMED CT 930391803 / Confirmed Former smoker / SNOMED CT 11629678 / Confirmed GERD (gastroesophageal reflux disease) / SNOMED CT 968901236 / Confirmed Scar tissue / SNOMED CT 830007674 / Confirmed Sleep apnea / SNOMED CT 914311188 / Confirmed Histories Family History: No family history items have been selected or recorded. Procedure history: Tonsillectomy (684021057). Epidural injection of lumbar spine using fluoroscopic guidance (4252886316). Social History Alcohol Assessment Use: Current. Beer, [...] (FEB 04 12:15) DBP 78 mmHg (FEB 04:15) SpO2 97 % (FEB 04 12:10) Pain assessment: Self-reports no pain. General: Alert and oriented, No acute distress. Airway: Mallampati classification: II (soft palate, fauces, uvula visible). Mouth: Dentures ( Upper and lower dentures ). Respiratory: Respirations are non-labored. Cardiovascular: Normal rate, Regular rhythm. Review / Management Laboratory Results Plan [place] [employer] Anesthesiologists#(ASA) physical status classification: Class [...] on: 02/04/2019 15:44 EDT] Alirio Mcclellan MD [facility] Inpatient Patient Summaryon 02-04-2019 Inpatient Patient Summary [address] [address] Patient Discharge Instructions Name: SHEY BOSS : 52 Patient Address: [address] [place] [id number] Primary Care Provider: Name: LATRELL JACK After you are discharged if you find you have any questions, please, call [phone] ext [phone] to speak to a nurse. Discharge Diagnosis: Trigger finger Prescription Information: If you have been given a prescription for narcotics, seek immediate medical attention if you have any difficulty breathing or any sudden status changes such as confusion and sleepiness. If you or anyone you know is experiencing suicidal thoughts, mental health, alcohol and/or drug addiction problems; contact the [facility] 30/01 Crisis Hotline -Text 4HHQM to 840921. If you received any narcotics, sedation, or [...] business decisions or sign any legal documents [facility] would like to thank you for allowing us to assist you with your healthcare needs. The following includes patient education materials and information regarding your injury/illness. SHEY BOSS has been given the following list of follow-up instructions, prescriptions, and patient education materials: Follow-up Instructions With: Address: When: Daquan Antunez [address] [place] [address], [address] [place] [address] Business (2) 02/12/2019 2:00 PM With: Address: When: LATRELL JACK [address] [place] [address] Abdiel [place], [place] [id number] Business (1) Medications During the course of [...] awake -DO NOT lift heavy objects or manager of security forcefully with the affected hand -DO NOT [...] or concerns, please call the office at [phone] or go to the emergency room -Follow [...] for Disease Control and Prevention March 2014 [facility] MAGR Postoperative Recordon 02-04-2019 MAGR Postoperative Record MAGR Phase II Record Summary Primary Physician: Daquan Antunez DO Finalized Date/Time: 02/04/19 17:11:50 Pt. Name: SHEY BOSS/Sex: 1950 FEMALE Med Rec #: [id number] Physician: Daquan Antunez DO Financial #: [id number] Pt. Type: D Room/Bed: / Admit/Disch: 02/04/19 11:44:00 - 02/04/19 17:05:00 Institution: [facility] II Case Times MAGR Pre-Care Text: Patient [...] Signed By: Stefanie Garibay RN 02/04/19 17:11 [facility] MAGR Preoperative Recordon 0 02-04-2019 MAGR Preoperative Record MAGR Pre-Op Record Summary Primary Physician: Daquan Antunez DO Finalized Date/Time: 02/04/19 15:37:19 Pt. Name: SHEY BOSS/Sex: 1950 FEMALE Med Rec #: [id number] Physician: Daquan Antunez DO Financial #: [id number] Pt. Type: D Room/Bed: / Admit/Disch: 02/04/19 11:44:00 - Institution[place] [facility] [place] [place]: Patient will be optimally prepared [...] By: Toshia Plascencia RN 02/04/19 15:37 Normal [facility] Operative Report - Surgeon/P shalini 02-04-2019 Operative [...] cc of 1% lidocaine injected locally by [place] )transverse incision was made over the A1 [...] on: 02/04/2019 16:37 EDT] Daquan Antunez DO [facility] Patient Handouton 02-04-[address] [place]ARA POST OPERATIVE INSTRUCTIONS FOR FINGER SURGERY/MALLET FINGER REPAIR SURGEONS WRITTEN INSTRUTCTIONS:' -Keep your hand elevated above your elbow for the first 24 hours after surgery and apply an ice bag at intervals for the first 24 hours -Wiggle the unaffected fingers frequently while awake -DO NOT lift heavy objects or manager of security forcefully with the affected hand -DO NOT [...] or concerns, please call the office at [phone] or go to the emergency room -Follow up as scheduled [facility] Progress Note - Nurseon - Progress Note - Nurse Spoke with pt regarding arrival time of 1145 and NPO status. Verbalized understanding. 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 Verbalized understanding. [Electronically Signed on: 02/01/2019 14:53 EDT] Kika Akers RN [Verified on: 02/01/2019 14:53 EDT] Kika Akers RN [facility] Coding Summaryon 01-29-2019 Coding Summary CODING DATE: 019 [facility] STATUS: Home PAYOR: Medicare MC APC [...] Lili Cueto Date Saved: 01/29/2019 01:42 pm [facility] .Auto Diff 1on 01-28-2019 Auto [place] % 8 % Normal 1-12 [facility] Comment on above: Performed By: #### 7 [id number], [id number] #### [facility] (DEFAULT) [address] [place] [address] Baso Abs# 0.0 x10 Normal 0.0-0.2 [facility] Comment on above: Performed By: #### 7 [id number], [id number] #### [facility] (DEFAULT) [address] [place] [address] Basophils/100 WBC (Bld) 0.4 % Normal 0.2-2.0 [facility] Comment on above: Performed By: #### 7 [id number], [id number] #### [facility] (DEFAULT) [address] [place] [address] Eos Abs# 0.2 x10 Normal 0.0-0.4 [facility] Comment on above: Performed By: #### 7 [id number], [id number] #### [facility] (DEFAULT) [address] [place] [address] Eosinophils/100 WBC (Bld) 3.5 % Normal 0.9-4.0 [facility] Comment on above: Performed By: #### 7 [id number], [id number] #### [facility] (DEFAULT) [address] [place] [address] Lymphocytes (Bld) [#/Vol] 1.6 x10 Normal 1.3-2.9 [facility] Comment on above: Performed By: #### 7 [id number], [id number] #### [facility] (DEFAULT) [address] [place] [address] Lymphocytes/100 WBC (Bld) 32 % Normal 14-48 [facility] Comment on above: Performed By: #### 7 [id number], [id number] #### [facility] (DEFAULT) [address] [place] [address] [place] Abs# 0.4 x10 Normal 0.0-0.8 [facility] Comment on above: Performed By: #### 7 [id number], [id number] #### [facility] (DEFAULT) [address] [place] [address] Neut Abs# 2.8 x10 Normal 1.5-9.2 [facility] Comment on above: Performed By: #### 7 [id number], [id number] #### [facility] (DEFAULT) [address] [place] [address] Neutrophils/100 WBC (Bld) 56 % Normal 44-88 [facility] Comment on above: Performed By: #### 7 [id number], [id number] #### [facility] (DEFAULT) [address] [place] [address] CBC w/ Auto Diffon 9 Erythrocyte distribution width (RBC) [Ratio] 13.4 % Normal 11.5-15.0 [facility] Comment on above: Performed By: #### 7 [id number], [id number] #### [facility] (DEFAULT) [address] [place] [address] Hematocrit (Bld) [Volume fraction] 40.4 % Normal 33.7-40.4 [facility] Comment on above: Performed By: #### 7 [id number], [id number] #### [facility] (DEFAULT) [address] [place] [address] Hemoglobin (Bld) [Mass/Vol] 13.9 g/dL Normal 11.3-15.9 [facility] Comment on above: Performed By: #### 7 [id number], [id number] #### [facility] (DEFAULT) [address] [place] [address] Man Diff? Auto Normal [facility] Comment on above: Performed By: #### 7 [id number], [id number] #### [facility] (DEFAULT) [address] [place] [address] MCH (RBC) [Entitic mass] 31 pg Normal 24-34 [facility] Comment on above: Performed By: #### 7 [id number], [id number] #### [facility] (DEFAULT) [address] [place] [address] MCHC (RBC) [Mass/Vol] 34 g/dL Normal 26-37 [facility] Comment on above: Performed By: #### 7 [id number], [id number] #### [facility] (DEFAULT) [address] [place] [address] MCV (RBC) [Entitic vol] 90 fL Normal 81-100 [facility] Comment on above: Performed By: #### 7 [id number], [id number] #### [facility] (DEFAULT) [address] [place] [address] Platelet mean volume (Bld) [Entitic vol] 10.3 fL High 6.3-10.2 [facility] Comment on above: Performed By: #### 7 [id number], [id number] #### [facility] (DEFAULT) [address] [place] [address] Platelets (Bld) [#/Vol] 199 x10 Normal 138-427 [facility] Comment on above: Performed By: #### 7 [id number], [id number] #### [facility] (DEFAULT) [address] [place] [address] RBC (Bld) [#/Vol] 4.47 x10 Normal 3.70-5.30 [facility] Comment on above: Performed By: #### 7 [id number], [id number] #### [facility] (DEFAULT) [address] [place] [address] WBC (Bld) [#/Vol] 5.1 x10 Normal 3.5-10.5 [facility] Comment on above: Performed By: #### 7 [id number], [id number] #### [facility] (DEFAULT) [address] [place] [address] Vital Signs Date Time Vital Sign Value Performing Clinician Facility 04-29-2024 10:55-0400 Body height 152.4 cm Xavier Barrios MD Work Phone: [facility] 04-29-2024 10:55-0400 Body mass index (BMI) [Ratio] 42.58 kg/m2 Xavier Barrios MD Work Phone: [facility] 04-29-2024 10:55-0400 Body temperature 98.49 [degF] Xavier Barrios MD Work Phone: [facility] 04-29-2024 10:55-0400 Body weight 98.88 kg Xavier Barrios MD Work Phone: [facility] 04-29-2024 10:55-0400 Diastolic blood pressure 65 mm[Hg] Xavier Barrios MD Work Phone: [facility] 04-29-2024 10:55-0400 Heart rate 90 /min Xavier Barrios MD Work Phone: [facility] 04-29-2024 10:55-0400 Systolic blood pressure 144 mm[Hg] Xavier Barrios MD Work Phone: [facility] 03-20-2024 13:23-0400 Diastolic blood pressure 81 mm[Hg] Katie Hairston [facility] 03-20-2024 13:23-0400 Heart rate 66 /min Wilson Sarmini [facility] 03-20-2024 13:23-0400 Mean blood pressure 112 mm[Hg] Wilson Sarmini [facility] 03-20-2024 13:23-0400 Respiratory rate 15 /min Wilson Sarmini [facility] 03-20-2024 13:23-0400 SaO2% (BldA) [Mass fraction] 94 % Wilson Sarmini [facility] 03-20-2024 13:23-0400 Systolic blood pressure 173 mm[Hg] Wilson Sarmini [facility] 03-20-2024 13:15-0400 Diastolic blood pressure 78 mm[Hg] Wilson Sarmini [facility] 03-20-2024 13:15-0400 Heart rate 64 /min Wilson Sarmini [facility] 03-20-2024 13:15-0400 Mean blood pressure 105 mm[Hg] Wilson Sarmini [facility] 03-20-2024 13:15-0400 Respiratory rate 13 /min Wilson Sarmini [facility] 03-20-2024 13:15-0400 SaO2% (BldA) [Mass fraction] 96 % Wilson Sarmini [facility] 03-20-2024 13:15-0400 Systolic blood pressure 159 mm[Hg] Wilson Sarmini [facility] 03-20-2024 13:05-0400 Diastolic blood pressure 76 mm[Hg] Wilson Sarmini [facility] 03-20-2024 13:05-0400 Heart rate 64 /min Wilson Sarmini [facility] 03-20-2024 13:05-0400 Mean blood pressure 99 mm[Hg] Wilson Sarmini [facility] 03-20-2024 13:05-0400 Respiratory rate 12 /min Wilson Sarmini [facility] 03-20-2024 13:05-0400 SaO2% (BldA) [Mass fraction] 96 % Wilson Sarmini [facility] 03-20-2024 13:05-0400 Systolic blood pressure 145 mm[Hg] Wilson Sarmini [facility] 03-20-2024 12:58-0400 Body temperature 97.16 [degF] Wilson Sarmini [facility] 03-20-2024 12:50-0400 Respiratory rate 15 /min Wilson Sarmini [facility] 03-20-2024 12:45-0400 Respiratory rate 18 /min Wilson Sarmini [facility] 03-20-2024 11:14-0400 Blood Pressure Location Wilson Sarmini [facility] 03-20-2024 11:14-0400 Body temperature 97.7 [degF] Wilson Sarmini [facility] 03-20-2024 11:14-0400 Respiratory rate 18 /min Wilson Sarmini [facility] 02-26-2024 09:12-0400 Blood Pressure Location Wilson Sarmini [facility] 02-26-2024 09:12-0400 Diastolic blood pressure 81 mm[Hg] Wilson Sarmini [facility] 02-26-2024 09:12-0400 Heart rate 66 /min Wilson Sarmini [facility] 02-26-2024 09:12-0400 Respiratory rate 16 /min Wilson Sarmini [facility] 02-26-2024 09:12-0400 Systolic blood pressure 131 mm[Hg] Wilson Sarmini [facility] 10-13-2023 09:42-0400 Diastolic blood pressure 80 mm[Hg] Pa NILL [facility] 10-13-2023 09:42-0400 Heart rate 69 /min Pa NILL [facility] 10-13-2023 09:42-0400 Mean blood pressure 102 mm[Hg] Pa NILL [facility] 10-13-2023 09:42-0400 Respiratory rate 15 /min Pa NILL [facility] 10-13-2023 09:42-0400 SaO2% (BldA) [Mass fraction] 97 % Pa NILL [facility] 10-13-2023 09:42-0400 Systolic blood pressure 146 mm[Hg] Pa NILL [facility] 10-13-2023 09:32-0400 Diastolic blood pressure 76 mm[Hg] Pa NILL [facility] 10-13-2023 09:32-0400 Heart rate 67 /min Pa NILL [facility] 10-13-2023 09:32-0400 Mean blood pressure 94 mm[Hg] Pa NILL [facility] 10-13-2023 09:32-0400 Respiratory rate 20 /min Pa NILL [facility] 10-13-2023 09:32-0400 SaO2% (BldA) [Mass fraction] 95 % Pa NILL [facility] 10-13-2023 09:32-0400 Systolic blood pressure 129 mm[Hg] Pa NILL [facility] 10-13-2023 09:27-0400 Diastolic blood pressure 71 mm[Hg] Pa NILL [facility] 10-13-2023 09:27-0400 Heart rate 70 /min Pa NILL [facility] 10-13-2023 09:27-0400 Mean blood pressure 92 mm[Hg] Pa NILL [facility] 10-13-2023 09:27-0400 Respiratory rate 15 /min Pa NILL [facility] 10-13-2023 09:27-0400 SaO2% (BldA) [Mass fraction] 96 % Pa NILL [facility] 10-13-2023 09:27-0400 Systolic blood pressure 134 mm[Hg] Pa NILL [facility] 10-13-2023 09:17-0400 Body temperature 97.16 [degF] Pa NILL [facility] 10-13-2023 09:10-0400 Respiratory rate 16 /min Pa NILL [facility] 10-13-2023 09:05-0400 Respiratory rate 16 /min Pa TRACEY [facility] 10-13-2023 08:03-0400 Body temperature 97.34 [degF] Pa TRACEY [facility] 08-11-2023 09:53-0500 Body height 160 cm Latrell Jack MD Work Phone: [facility] 08-11-2023 09:53-0500 Body mass index (BMI) [Ratio] 40.39 kg/m2 Latrell Jack MD Work Phone: [facility] 08-11-2023 09:53-0500 Body temperature 97.11 [degF] Latrell Jack MD Work Phone: [facility] 08-11-2023 09:53-0500 Body weight 103.42 kg Latrell Jack MD Work Phone: [facility] 08-11-2023 09:53-0500 Diastolic blood pressure 70 mm[Hg] Latrell Jack MD Work Phone: [facility] 08-11-2023 09:53-0500 Heart rate 94 /min Latrell Jack MD Work Phone: [facility] 08-11-2023 09:53-0500 SaO2% (BldA) [Mass fraction] 97 % Latrell Jack MD Work Phone: [facility] 08-11-2023 09:53-0500 Systolic blood pressure 140 mm[Hg] Latrell Jack MD Work Phone: [facility] Healthcare Encounters Encounter Date Encounter Type Care Provider Facility Start: 04-29-2024 End: 04-29-2024 Office outpatient new 45 minutes Xavier Barrios MD Work Phone: General Surgery Comment on above: Paraesophageal herni a (Primary Dx) Start: 04-22-2024 End: 04-22-2024 Telephone encounter Ashlie Calderon MA General Surgery Start: 04-15-2024 End: 04-15-2024 ambulatory Talat Arguello MD Facility:[facility] Start: 04-11-2024 End: 04-11-2024 Patient encounter procedure Mao Morrow PhD Work Phone: [facility] Comment on above: Memory loss (Primary Dx); Word finding difficulty; EDWIN on CPAP; Other insomnia; Other chronic pain; Generalized anxiety disorder (CMS/HCC); Severe episode of recurrent major depressive disorder, 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) Start: 04-11-2024 End: 04-11-2024 ambulatory LATRELL JACK Not Available Start: 03-26-2024 End: 03-26-2024 ambulatory MAO MORROW Not Available Start: 03-26-2024 End: 03-26-2024 ambulatory Wilson Talal Sarmini [facility] Start: 03-25-2024 End: 03-25-2024 ambulatory DIOMEDES MATUTE Not Available Start: 03-20-2024 End: 03-20-2024 ambulatory Wilson Talal Sarmini [facility] Start: 03-20-2024 End: 03-20-2024 Patient encounter procedure Wilson Talal Sarmini [facility] Start: 03-07-2024 End: 03-07-2024 ambulatory DIOMEDES MATUTE Not Available Start: 02-26-2024 End: 02-26-2024 ambulatory Wilson Talal Sarmini Facility:[facility] Start: 02-26-2024 End: 02-26-2024 Patient encounter procedure Wilson Talal Sarmini [facility] Start: 02-13-2024 ambulatory Pa WEBB [facility] Start: 02-09-2024 End: 02-09-2024 ambulatory LATRELL JACK Not Available Start: 10-13-2023 End: 10-13-2023 ambulatory Pa WEBB Facility[facility] Start: 10-13-2023 End: 10-13-2023 Patient encounter procedure Pa WEBB [facility] Start: 09-12-2023 End: 09-12-2023 ambulatory Pa WEBB Facility:[facility] Start: 09-05-2023 ambulatory Pa WEBB Facility:[facility] Start: 08-11-2023 Bamboo flowsheet Latrell Jack MD [...] 09-09-2021 Encounter for prepro cedural laboratory examination MARNIE PEMBERTON [facility] Start: 09-07-2021 End: 09-07-[address] LATRELL JACK Facility:[facility] Start: 09-07-2021 End: 09-07-2021 Encounter for preprocedural laboratory examination DR LATRELL JACK Facility:[facility] Start: 09-03-2021 Encounter for prepro cedural cardiovascular examination MARNIE Fuentes TEOFILOROGELIO [facility] Start: 09-02-2021 End: 09-03-2021 ambulatory [...] fixation Pa NILL Repair of meniscus Pa MORALES Tonsillectomy Pa PALMERL Plan of Treatment Date Care Activity Detail Author Start: 10-12-2033 Screening for malign ant neoplasm of colon [facility] Start: 09-21-2026 RSV Vaccine (1 - 1-d ose 75+ series) RSV Vaccine (1 - 1-dose 75+ series) [facility] Start: 11-27-2024 Screening for malign ant neoplasm of breast Mammogram [facility] Start: 05-30-2024 End: 05-30-2024 Patient encounter procedure 05/30/2024 3:40 PM EST Office Visit [facility] [address] [place] [address] Sandra Arcos NP [address] [place], [place] [facility] [address] Start: 05-15-2024 End: 05-15-2024 Patient encounter procedure 05/15/2024 10:00 AM EST Office Visit [facility] [address] [place] [phone] Latrell Jack MD [address] [place] [phone] [facility] Start: 04-29-2024 End: 04-29-2024 Patient encounter procedure 04/29/2024 11:00 AM EDT Office Visit General Surgery [address] [address] Xavier Barrios MD [address] [place], [place] [id number] Hiatal Hernia General Surgery Comment on above: Hiatal Hernia Start: 03-10-2024 Covid-19 Vaccine ( season) Covid-19 Vaccine ( season) [facility] Start: 03-10-2024 Covid-19 Vaccine ( season) Covid-19 Vaccine ( season) [facility] Start: 03-10-2024 Influenza vaccination Influenza Vacc ine (#1) [facility] Start: 02-09-2024 End: 02-09-2024 Patient encounter procedure 02/09/2024 9:45 AM EDT Office Visit [facility] [address] [place] [address] Latrell Jack MD [address] [place] [address] [facility] Start: 08-11-2023 End: 08-11-2024 Basic metabolic 1998 panel - Serum or Plasma Basic metabolic panel Lab Routine Encounter for long-term (current) use of medications Expected: 08/11/2023 (Approximate), Expires: 08/11/2024 [facility] Comment on above: Expected: 08/11/2023 (Approximate), Expires: 08/11/2024 Start: 08-11-2023 End: 08-11-2024 CBC W Auto Differential panel - Blood CBC and differential Lab Routine Encounter for long-term (current) use of medications Expected: 08/11/2023 (Approximate), Expires: 08/11/2024 [facility] Comment on above: Expected: 08/11/2023 (Approximate), Expires: 08/11/2024 Start: 08-11-2023 End: 08-11-2024 Hemoglobin A1c measurement Hemoglobin A1c Lab Routine Morbid obesity due to excess calories (CMS/HCC) Expected: 08/11/2023 (Approximate), Expires: 08/11/2024 [facility] Work Phone: Comment on above: Expected: 08/11/2023 (Approximate), Expires: 08/11/2024 Start: 08-11-2023 End: 08-11-2024 Hepatic function 2000 panel - Serum or Plasma Hepatic function panel Lab Routine Encounter for long-term (current) use of medications Expected: 08/11/2023 (Approximate), Expires: 08/11/2024 [facility] Comment on above: Expected: 08/11/2023 (Approximate), Expires: 08/11/2024 Start: 08-11-2023 End: 08-11-2024 Lipid 1996 panel - Serum or Plasma Lipid panel Lab Routine Dyslipidemia ([facility]/HCC) Expected: 08/11/2023 (Approximate), Expires: 08/11/2024 [facility] Comment on above: Expected: 08/11/2023 (Approximate), Expires: 08/11/2024 Start: 08-11-2023 End: 08-11-2024 Thyrotropin [Units/volume] in Serum or Plasma TSH Lab Routine Morbid obesity due to excess calories (CMS/HCC) Expected: 08/11/2023 (Approximate), Expires: 08/11/2024 [facility] Comment on above: Expected: 08/11/2023 (Approximate), Expires: 08/11/2024 Start: 08-11-2023 End: 08-11-2023 Patient encounter procedure 08/11/2023 9:45 AM EST Office Visit [facility] [address] [place] [address] Latrell Jack MD [address] [place] [phone] Arrived [facility] Comment on above: Arrived Start: 07-10-2023 Advance Directive Discussion Advance Directive Discussion [facility] Start: 03-10-2023 Influenza vaccination Influenza Vacc ine (#1) [facility] Start: 09-21-2016 Screening for osteoporosis Bone Density Screening [facility] Start: 09-21-2001 Shingrix Vaccine (1 of 2) Shingrix Vaccine (1 of 2) [facility] Start: 09-21-1996 Diabetes Screening Diabetes Screenin g [facility] Start: 09-21-1996 Lipid panel Lipid Screening [facility] Start: 09-21-1996 Screening for malign ant neoplasm of colon [facility] Start: 1991 Screening for malign ant neoplasm of breast [facility] Start: 09-21-1970 Urine microalbumin profile DTaP,Tdap,Td Vaccine (1 - Tdap) [facility] Start: 09-21-1969 Anxiety Screening Anxiety Screening [facility] Start: 09-21-1969 Depression Screening Depression Scre ening [facility] Start: 09-21-1969 Hepatitis C screening Hepatitis C Sc reening [facility] Start: 1951 Screening for malign ant neoplasm of colon [facility] Immunizations Immunization Date Immunization Notes Care Provider Fa cility 04-09-2023 influenza virus vacc ine, unspecified formulation Pa WEBB [facility] General [facility] [place] 05-03-2022 SARS-CoV-2 (COVID-19 ) [id number] Pa WEBB [facility] General Surgery [place] 05-03-2022 influenza virus vacc ine, unspecified formulation Latrell Jack MD Work Phone: [facility] 11-25-2021 pneumococcal conjuga te vaccine, 13 valent Mao Denbesten PhD Work Phone: [facility] 04-12-2021 influenza virus vacc ine, unspecified formulation Wilson [facility] 04-12-2021 SARS-CoV-2 (COVID-19 ) mRNA BNT-162b2 vax Pa NILL [facility] Comment on above: Result Comment: 2023: [id number] 09-14-2020 SARS-CoV-2 (COVID-19 ) mRNA BNT-162b2 vax Pa NILL [facility] Comment on above: Result Comment: 2023: [id number] 08-27-2020 SARS-CoV-2 (COVID-19 ) mRNA BNT-162b2 vax Pa NILL [facility] Comment on above: Result Comment: 2023: [id number] 06-16-2020 influenza virus vacc ine, unspecified formulation [facility] Sar[facility] 05-16-2019 influenza virus vacc ine, unspecified formulation [facility] Sar[facility] 05-16-2019 pneumococcal polysaccharide vaccine, 23 valent Wilson Sar[facility] 05-12-2018 influenza virus vacc ine, unspecified formulation [facility] 01-31-2018 pneumococcal conjuga te vaccine, 13 valent [facility] 05-10-2016 influenza virus vacc ine, unspecified formulation [facility] 04-16-2015 influenza virus vacc ine, unspecified formulation Katie Hairston [facility] Payers Date Payer Category Payer Private Health Insurance [id number] 2016 Medicare [id number] 2016 Unknown 1959 Medicare [id number] 1959 Private Health Insurance [id number] 1951 Unknown [id number] 2.16.84 0.1.135794.3.579.2.593 1951 Unknown [id number] 2.16.84 0.1.416453.3.579.2.593 1951 Unknown [id number] 2.16.84 0.1.577722.3.579.2.593 1951 Unknown [id number] 2.16.84 0.1.749745.3.579.2.593 1951 Unknown [id number] 2.16.84 0.1.885947.3.579.2.593 1951 Unknown [id number] 2.16.84 0.1.298209.3.579.2.593 1951 Unknown [id number] 2.16.84 0.1.178500.3.579.2.593 1951 Unknown [id number] 2.16.8 40.1.388878.3.579.2.727 1951 Unknown [id number] 2.16.8 40.1.458843.3.579.2.727 1951 Unknown [id number] 2.16.8 40.1.996136.3.579.2.727 1951 Unknown [id number] 2.16.8 40.1.600533.3.579.2.727 1951 Unknown [id number] 2.16.8 40.1.563227.3.579.2.727 1951 Unknown [id number] 2.16.84 0.1.068530.3.579.2.1259 1951 Unknown [id number] 2.16.84 0.1.218102.3.579.2.9 1951 Unknown [id number] 2.16.84 0.1.985195.3.579.2.1259 1951 Unknown [id number] 2.16.84 0.1.178730.3.579.2.9 1951 Unknown [id number] 2.16.84 0.1.602475.3.579.2.1259 1951 Unknown [id number] 2.16.84 0.1.887879.3.579.2.9 1951 Unknown [id number] 2.16. 840.1.205298.3.579.2.196 Social History Date Type Detail Facility Start: 08-05-2023 End: 03-07-2024 Tobacco smoking status DEIS Ex-smoker [facility] Start: 07-10-1967 End: 01-08-2012 History of tobacco use Current smoker [facility] Start: 07-10-1967 End: 01-08-2012 History of tobacco use Cigarette Smoker [facility] Start: 08-05-2023 End: 04-29-2024 Cigarettes smoked current (pack per day) - Reported 1 [facility] Start: 08-05-2023 End: 04-29-2024 Tobacco use panel [facility] Start: 1950 Sex Assigned At Not on file N [facility] Start: 08-11-2023 End: 03-07-2024 Tobacco use and exposure Smokeless tobacco non-user [facility] Tobacco smoking status Never [facility] General Surgery [place] Start: 03-07-2024 Alcoholic beverage intake Current drinker of alcohol (finding) [facility] Are you now , , , [...] Alcohol Comment Caffeine: 2-3 cups per day [facility] Tobacco smoking stat [facility] Tobacco smoking consumption unknown [facility] Start: 04-23-2024 Gender identity Identifies as female gender (finding) [facility] Functional Status Date Assessment Result Facility 03-20-2024 Functional Status N/A [facility] 02-26-2024 Functional Status N/A [facility] 10-13-2023 Functional Status N/A [facility] Clinical Notes 09-10-2021 to 04-29-2024 Xavier Barrios MD - 04/29/2024 12:08 PM Yan Bethea - 04/29/2024 11:16 AM Diomedes Sawant MA - 04/29/2024 10:50 AM Diomedes Sawant MA - 04/29/2024 10:50 AM EDTRadiology Note Date & Type Note Facility 04-29-2024 History of Present illness Narrative Consultation requested by Dr. Latrell Jack for an opinion regarding hiatal hernia. My final recommendations will be communicated back to the requesting physician by way of shared medical record or letter via US mail. 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 She has had GERD in the past, but most recently has had some dysphagia. No regurgitation. States her GERD is under control with PPI. No chest pain. Some early satiety. No previous repairs. Will plan for lap or robotic PEH with or without mesh. I have seen and evaluated the patient and discussed the case with the resident physician. I agree with the assessment and plan as documented in the resident s note including a ROS that was reviewed and negative other than what was indicated in our notes. Patient consented for study? Yes STUDY TITLE: MVP Trial: Mesh Vs Pledgets for repair of paraesophageal hernia repair: a randomized, blinded, parallel group trial IRB NO.: #[id number] ROLL FORMING SUPERVISOR: Pa Prakash MD COORDINATOR/Research Nurse/Videogame Tester: Abdelrahman He MD Phone/email: [phone], [email or web address] Consenting was performed in person prior to inclusion in the study. The study protocol was discussed in detail with the patient. All study procedures were explained to the subject, including randomization, the two possible study interventions, and the postoperative management strategy for all patients participating in the study. Also, it was explained that pain scores, quality of life, and upper GI imaging will be assessed daily during follow up visits. The importance of follow up compliance was stressed. The risks, benefits, alternatives to participation and potential costs were discussed. All patient questions were addressed and answered. Patient has read and understood the study procedures and requirements. Patient has agreed to proceed with trial participation. Consent was signed prior to inclusion in the study and a copy was provided to the patient. INCLUSION CRITERIA Yes No 1. The patient is > 18 years of age [x] [] 2. The patient is willing and able to provide informed consent [x] [] 3. The patient is willing and able to participate in long-term follow up including study visits and surveys [x] [] 4. The patient has a type II, III, or IV hiatal hernia > 5cm, confirmed via upper GI studies, CT, or MRI [x] [] EXCLUSION CRITERIA Yes No 1. The patient lacks Monegasque language fluency or cannot understand the consent form/study procedures [] [x] 2. The patient is [] [x] 3. The patient has a BMI >45 [] [x] 4. The patient has undergone previous hiatal hernia repair [] [x] 5. The patient will undergo paraesophageal hernia repair with a concurrent bariatric procedure to reduce stomach volume [] [x] [facility] - HISTORY AND PHYSICAL SUBJECTIVE: Chief Complaint: Paraesophageal hernia HPI: Shey Boss is a 73 year old female who with history of HTN, COPD (not on home O2), knee OA, GERD who presents with paraesophageal hernia. Long standing history of GERD. Heartburn controlled with PPI/Famotidine. Still has constant belching, early satiety and dysphagia which is progressively getting worse. OSH Barium swallow has shown large type III PEH. Denies prior abdominal operations. Former smoker (stopped 2011). COPD not on home O2, On spiriva. No weight loss, no hematemesis or melena. Recent EGD has shown paraesophageal hernia, no Brandon ulcers. Relevant previous abdominal operations include: None Smoking status: Former Risk factors: N/A Opioid Dependence Risk Screen: No history of Psychiatric Disorders or Opioid Use Functional Status: Independent Employment: No employment Sporting Activity: None Co-morbidities: Hypertension, Dyspnea Complete Review of Systems: Review of Systems HENT: Negative. Eyes: Negative. Respiratory: Negative. Cardiovascular: Negative. Gastrointestinal: Positive for abdominal pain and nausea. Endocrine: Negative. Genitourinary: Negative. Musculoskeletal: Negative. Allergic/Immunologic: Negative. Neurological: Negative. Hematological: Negative. Psychiatric/Behavioral: Negative. Prior to Admission medications as of 04/29/24 1056 Medication Sig Last Dose Taking Vitamin E, dl, acetate, (VITAMIN E) 400 unit capsule Take 1 capsule by mouth. Taking Yes aspirin 81 mg cap Take 81 mg by mouth. Taking Yes atorvastatin (LIPITOR) 40 mg tablet Take 40 mg by mouth. Taking Yes calcium carbonate (CALTRATE) 600 mg calcium (1,500 mg) tab Take 1 tablet by mouth. Taking Yes Cholecalciferol, Vitamin D3, 25 mcg (1,000 unit) cap Take 1 capsule by mouth. Taking Yes donepezil (ARICEPT) 5 mg tablet Take 5 mg by mouth daily at bedtime. Taking Yes famotidine (PEPCID) 40 mg tablet Take 1 tablet by mouth. Taking Yes fluticasone (FLONASE) 50 mcg/actuation nasal spray 2 Sprays once daily. Taking Yes losartan (COZAAR) 50 mg tablet Take 50 mg by mouth. Taking Yes pantoprazole DR (PROTONIX) 40 mg tablet Take 40 mg by mouth. Taking Yes Zolpidem (AMBIEN CR) 12.5 mg CR tablet Take 12.5 mg by mouth. Taking Yes ALLERGIES No Known Allergies PHYSICAL EXAM: BP 144/65 Pulse 90 Temp (Src) 98.5 (Temporal) Ht 5' 0 (1.52m) Wt 218 lb (98.9kg) BMI 42.58 kg/(m^2). GENERAL: awake, alert and oriented, no acute distress. CARDIOVASCULAR: warm and well perfused throughout, regular rate and rhythm, normal S1 and S2. LUNGS: non-labored breathing, lungs clear to auscultation, good diaphragmatic excursion. ABDOMEN: soft, non-tender, non-distended. EXTREMITY: no lower extremity edema. NEUROLOGICAL: no gross focal neurologic deficits. LABS: Reviewed IMAGING: OSH UGI reviewed and uploaded. Large Type III PEH. ASSESSMENT/PLAN: chani Boss is a 73 year old female who with history of HTN, COPD (not on home O2), knee OA, GERD who presents with symptomatic paraesophageal hernia. BMI 37. We discussed indications for surgery, risks, benefits, alternatives. In light of her elevated BMI, we had a michelle discussion on recurrence rates. She understands and agrees to proceed. She is also insterested in participating on our MVP Trial. - Consents obtained Yan Castano MD General Surgery documented in this encounter [facility] 04-29-2024 Nurse Note What is the reason for your visit today? Consult Who is your referring physician? Katie Hairston Are you having poor oral intake? YES Have you had unintentional weight loss of 15 lbs/7 Kg in the last 3-6 months? NO Bowels: soft, more frequent Wound: none Temperature: No Drains: No [facility] 04-29-2024 Nurse Note What is the reason for your visit today? Consult Who is your referring physician? Katie Hairston Are you having poor oral intake? YES Have you had unintentional weight loss of 15 lbs/7 Kg in the last 3-6 months? NO Bowels: soft, more frequent Wound: none Temperature: No Drains: No documented in this encounter [facility] 04-22-2024 Telephone encounter Note Spoke with PT she state no prior surgeries [facility] 04-22-2024 Miscellaneous Notes Spoke with PT she state no prior surgeries documented in this encounter [facility] 04-11-2024 History of Present illness Narrative Images [...] No history of alcohol/substance abuse. Reformed smoker. Eyak language Monegasque. Completed high school education as well as some college. Described self as a C student. 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 Visual lraes full to confrontation. Visuoconstruction 35th %ile. Nonverbal abstract reasoning 90th %ile. Copy of a complex geometric design >16th %ile. Motor/Speed of Processing: Left-handed. Guest Relation Officer strength 31st %ile with left-hand, 18th %ile [...] Learning of a word list 58th %ile (8-1-24-10-12), delayed recall 50th %ile. Recognition discriminability 69th [...] Please contact me with any questions at [phone]. documented in this encounter [facility] 03-27-2024 Note Endoscopic Procedure Report - Other [...] 1 tab, Oral, Daily Flonase 0.05 mg/inh [place]: 2 spray(s), Nasal, Daily, Refill(s) 0, Dry [...] a day (at bedtime) Flonase 0.05 mg/inh [place] 2 spray(s), Nasal, Daily losartan 25 mg [...] All Problems HTN (hypertension) / SNOMED CT 6165384514 / Confirmed Chronic obstructive pulmonary disease / SNOMED CT 53679667 / Confirmed Insomnia / SNOMED CT 507277547 / Confirmed Seasonal allergic rhinitis / SNOMED CT 158878292 / Confirmed Dyslipidemia / SNOMED CT 2770510886 / Confirmed BMI 39.0-39.9,adult / SNOMED CT 351290119 / Confirmed Morbid obesity / SNOMED CT 076126073 / Confirmed GERD (gastroesophageal reflux disease) / SNOMED CT 695897056 / Confirmed Hiatal hernia / SNOMED CT 309604894 / Confirmed EDWIN (obstructive sleep apnea) / SNOMED CT 162443211 / Confirmed Lower extremity edema / SNOMED CT 065681079 / Confirmed TIA (transient ischemic attack) / SNOMED CT 569984738 / Confirmed Screening for malignant neoplasm of colon / SNOMED CT 331916874 / Confirmed Dysphagia / SNOMED CT 22580341 / Confirmed Histories Past Medical History: Resolved Hernia (284219410): Resolved. Sleep apnea (573574124): Resolved. Family History: Father Alcoholism Primary malignant neoplasm of lung COPD Mother Cardiac arrest Alzheimer's disease Procedure history: Colonoscopy (073019082) on 10/13/2023 at 73 Years. ORIF - Open reduction of fracture of ankle with internal fixation ([id number]). Meniscal repair (367374204). Tonsillectomy (431321469). Hand tendon repaired (993779438). Social History Social & Psychosocial Habits Alcohol [...] Impression and Plan Impression: DYSPHAGIA Plan: -EGD [facility] Comment on above: Result Comment: mary anne [...] Follow these instructions at home: Medicines Take blnb-glx-tezttfn and prescription medicines only as told by [...] or drinks. ?Garlic or onions. ?Spicy foods. ?[place] fruits. ?Tomato-based foods. ?Fatty or fried foods. [...] provider. Document Revised: 01/09/2023 Document Reviewed: 01/09/2023 Elsevier Patient Education 2023 Just Above Cost. 03/20/2024 13:07:56 Gastritis, Adult, Zjva-mm-Itoq Gastritis, Adult Gastritis is irritation and swelling [...] Follow these instructions at home: Medicines Take xpdk-ail-bypyedu and prescription medicines only as told by [...] provider. Document Revised: 10/30/2021 Document Reviewed: 10/30/2021 myAchy Patient Education 2023 Just Above Cost. 03/20/2024 13:07:48 Hiatal Hernia Hiatal Hernia A [...] reduce GERD symptoms. Medicines. These may include: ?Flyk-lif-xnlrqqo antacids. ?Medicines that make your stomach empty [...] may include: ?Fatty foods, like fried foods. ?[place] fruits, like oranges or lemon. ?Other foods [...] Do not drink alcohol. General instructions Take fhon-jvx-ydbmbxb and prescription medicines only as told by [...] provider. Document Revised: 08/23/2022 Document Reviewed: 08/23/2022 myAchy Patient Education 2023 Just Above Cost. 03/20/2024 13:07:46 Endoscopy, Care After Procedure [facility] Endoscopy Care After Procedure Please [...] blood. Document Released: 02/07/2005 Document Re-Released: 12/18/2006 [facility] Patient Information 2009 [place]. Follow Up Care 02/26/2024 09:52:05 With:Yovanny OLIVO, SENAIT Sifuentes, [facility] Address: When: Unknown Comments:Call for any problems. Office will call to schedule follow up appointment [facility] 03-20-2024 Evaluation + Plan note Future Scheduled TestsXR Esophagus 03/20/24 [facility] 03-20-2024 Note Patient Education - Text Endoscopy [...] Document Re-Released: 12/18/2006 ExitCare? Patient Information ?2009 [place]. Gastroenterology Hiatal Hernia A hiatal hernia occurs [...] symptoms. ? Medicines. These may include: ? Ghvt-jbr-hutxrlw antacids. ? Medicines that make your stomach [...] Avoid putting pressu (more content not included)... [facility] 03-20-2024 Note Endoscopic Procedure Report - Other [...] otherwise normal examined duodenum Images Procedure images: Rec1_hd_video_2023___[id number]. jpg Rec1_hd_video____[id number]. jpg Rec1_hd_video_2023____[id number]. jpg Rec1_hd_video____[id number]. jpg Rec1_hd_video___[id number]. jpg Rec1_hd_video_2023___[id number]. jpg . Post-Procedure Complications: none. Estimated blood [...] surgery referral is indicated, will be ordered [facility] Comment on above: Result Comment: Elec tronically Signed By: Yovanny OLIVO, Katie Torres\.br\Date and Time Signed: 03/20/24 12:58 EDT Other Comment: Samreen dueñas Attachment - attachment storage system not supported [id number] Can be viewed in source systemMissing Attachment - attachment storage system not supported [id number] Can be viewed in source systemMissing Attachment - attachment storage system not supported [id number] Can be viewed in source systemMissing Attachment - attachment storage system not supported [id number] Can be viewed in source systemMissing Attachment - attachment storage system not supported [id number] Can be viewed in source systemMissing Attachment - attachment storage system not supported [id number] Can be viewed in source system 03-20-2024 [...] 1 tab, Oral, Daily Flonase 0.05 mg/inh [place]: 2 spray(s), Nasal, Daily, Refill(s) 0, Dry [...] a day (at bedtime) Flonase 0.05 mg/inh [place] 2 spray(s), Nasal, Daily losartan 25 mg [...] All Problems HTN (hypertension) / SNOMED CT 7209871763 / Confirmed Chronic obstructive pulmonary disease / SNOMED CT 75955681 / Confirmed Insomnia / SNOMED CT 248689434 / Confirmed Seasonal allergic rhinitis / SNOMED CT 186708506 / Confirmed Dyslipidemia / SNOMED CT 0948395395 / Confirmed BMI 39.0-39.9,adult / SNOMED CT 681005908 / Confirmed Morbid obesity / SNOMED CT 667674797 / Confirmed GERD (gastroesophageal reflux disease) / SNOMED CT 642545769 / Confirmed Hiatal hernia / SNOMED CT 342842646 / Confirmed EDWIN (obstructive sleep apnea) / SNOMED CT 075373416 / Confirmed Lower extremity edema / SNOMED CT 624343883 / Confirmed TIA (transient ischemic attack) / SNOMED CT 110847332 / Confirmed Screening for malignant neoplasm of colon / SNOMED CT 862712316 / Confirmed Dysphagia / SNOMED CT 77183184 / Confirmed Histories Past Medical History: Resolved Hernia (480121615): Resolved. Sleep apnea (305814651): Resolved. Family History: Father Alcoholism Primary malignant neoplasm of lung COPD Mother Cardiac arrest Alzheimer's disease Procedure history: Colonoscopy (285755407) on 10/13/2023 at 73 Years. ORIF - Open reduction of fracture of ankle with internal fixation (400494030688397). Meniscal repair (343350267). Tonsillectomy (724176053). Hand tendon repaired (710901285). Social History Social & Psychosocial Habits Alcohol [...] mmHg (MAR 20:) DBP 72 mmHg (MAR 20:14) Weight 100 kg (MAR 20:) General: in Nad Abdomen: Soft, NTND Impression and Plan Impression: DYSPHAGIA Plan: -EGD [facility] Comment on above: Result Comment: Elec tronically Signed By: Yovanny OLIVO, Katie Torres\.br\Date and Time Signed: 03/20/24 12:47 EDT 10-16-2023 Note [id number]#1.00TIFF [facility] 10-13-2023 Evaluation + Plan note Extrac clarke from: Title:ANES Post-operative Note - General Author: Shaji Bethea Jr., DO Date:10/13/23 Plan Transfer/Discharge: Transfer/Discharge Discharge when meets criteria ( From PACU to Ambulatory Surgery Unit, and To home ). Extracted from: Title:ANES Pre-operative Note - Endo Author:Niles ferreira Jr. Shaji JOVEL Date:10/13/23 Plan [place] [employer] (ASA) physical status classification: Class III. Anesthetic Preoperative Plan: Anesthesia General, and -TIVA. [facility]04-05-2024 Hospital Discharge instructions Patient Education 10/13/2023 09:31:42 [...] Up Care 09/12/2023 10:17:58 With:Pa WEBB Address: [address] [place] [address], [address] [address]- Business (1) When: only if needed [facility]04-05-2024 NotePatient: SHEY BOSS Age: 73 years Sex: Female : 1950 Associated Diagnoses: None Author: Pa WEBB MD Subjective no changes to H & PFTriHealth [facility] HospitalComment on above:Result Comment: Electronically Signed By: Pa WEBB MD\.br\Date and Time Signed: 10/13/23 09:45 [id number] NoteChief Complaint consultation for colonoscopy HPI Staff [...] a day (at bedtime) Flonase 0.05 mg/inh [place], 2 spray(s), Nasal, Daily losartan 25 mg [...] Alcoholism: Father. Alzheimer's di (more content not included)...[facility]:Result Comment: Electronically Signed By: TRACEY OLIVO, Pa Lynn\Date and Time Signed: 09/12/23 10:16 [id number] History of Present illness Narrative* Latrell Jack [...] referral to General Surgery [facility] [id number] NoteEXAMINATION: XR CHEST 1 V HISTORY: SHORTNESS [...] Electronically authenticated by: MEHNAZ SANTIAGO Date: 2021-11-02 16:39[facility]03-04-2022 NotePROCEDURE: XR ANKLE RT MIN [...] Electronically authenticated by: WILLARD ANAND Date: 2021-09-10 09:02[facility]03-04-2022 NotePROCEDURE: XR ANKLE RT 2V COMPARISON: 03/02/2020. HISTORY: Pain FINDINGS: 35 seconds of fluoroscopy. 5 fluoroscopic images Interval removal of internal fixation hardware. Components of 2 fractured screws across the tibiofibular syndesmosis remain on image #5 IMPRESSION: Removal of lateral fibular plate and screws Electronically authenticated by: WILLARD ANAND Date: 2021-09-10 08:30[facility] note Future Appointments Appointment Date:03/20/2024 12:15:00 PM Scheduled Provider: Location:[facility] Surgical Services Appointment Type:Surgery FT [facility] Evaluation note* Diagnosis Essential hypertension, [...] 40.0-44.9, adult (Z68.41) documented in this encounter [facility] HealthcareEvaluation note* Diagnosis Memory loss- Primary Word finding difficulty EDWIN on CPAP Other insomnia Other chronic pain Generalized anxiety disorder (CMS/HCC) Generalized anxiety disorder Severe episode of recurrent major depressive disorder, without psychotic features (HCC) ([facility]/HCC) documented in this encounter [facility] HealthcareEvaluation note* Diagnosis Paraesophageal hernia- Primary Diaphragmatic hernia without mention of obstruction or gangrene [facility] Narrative No data available for this section [facility] No data available for this section [facility] Progress note No data available for this section [facility] IncReason for referral (narrative)* Consultation (Routine) - Pending Review Specialty Diagnoses / Procedures Referred By Joan junior Referred To Contact General Surgery Diagnoses Screening for colon cancer Procedures IA OFFICE/OUTPATIENT [facility] 60 MINUTES Latrell Jack MD [address] [place] [address] Pa Webb MD [address] [place] [address] Referral ID Status Reason Start Date Expiration Date Visits Requested Visits Authorized [id number] Pending Review Specialty Services Required 08/11/2023 02/07/2024 [...] Advanced Directives Records Found Hospital Course Note [facility] SURGERY Clinical Discharge Summary PERSON INFORMATION Name SHEY BOSS Age 68 Years 52 Sex FEMALE Language Monegasque PCP LATRELL JACK Marital Status Single Med Service Ambulatory Surgery Acct# Arrival 02/04/19 11:44:00 Visit Reason SURGERY - RELEASE TRIGGER FINGER LEFT RING FINGER AND E/O CYST LEFT RING FINGER Acuity LOS 012 05:38 Address: [address] [place] [address] Comment: PROVIDER INFORMATION VITALS INFORMATION Vital Sign [...] section and content) DATE CREATED AUTHOR 02/17/2019 [facility] DATE CREATED AUTHOR AUTHOR'S ORGANIZ ATION 08/03/2022 [facility] DATE CREATED AUTHOR AUTHOR'S ORGANIZ ATION [facility]20[facility] DATE CREATED AUTHOR AUTHOR'S ORGANIZ ATION 03/30/2024 [facility] DATE CREATED AUTHOR AUTHOR'S ORGANIZ ATION 04/04/2024 [facility] DATE CREATED AUTHOR AUTHOR'S ORGANIZ ATION 04/13/2024 [facility] DATE CREATED AUTHOR AUTHOR'S ORGANIZ ATION 04/24/2024 [facility] DATE CREATED AUTHOR AUTHOR'S ORGANIZ ATION 04/28/2024 [facility] Care Teams (unrecognized sec tion and content) Pin Worker Relationship Specialty Start Date End Date Latrell Jack MD [address] [place] [phone] PCP - General Family Medicine 08/05/23 Pin Worker Relationship Specialty Start Date End Date Latrell Jack MD [address] [place] [phone] PCP - General Family Medicine 08/05/23 Pin Worker Relationship Specialty Start Date End Date Latrell Jack MD [address] [place] [phone] PCP - General Family Medicine 08/05/23 Pin Worker Relationship Specialty Start Date End Date Katie Hairston MD [address] [address] Internal Medicine 04/02/24 Pin Worker Relationship Specialty Start Date End Date Katie Hairston MD [address] [facility] [address] [address] Internal Medicine 04/02/24 Reason for Visit (unrecogniz ed section and content) Reason Comments Follow-up 6 m Reason Comments New Patient Evaluation Hiatal Hernia Source Comments (unrecognize d section and content) In the event this informatio n is protected by the Federal Confidentiality of Alcohol and Drug Abuse Patient Records regulations: The Federal rules restrict any use of the information to criminally investigate or prosecute any alcohol or drug abuse patient.[facility] the event this information is protected by the Federal Confidentiality of Alcohol and Drug Abuse Patient Records regulations: The Federal rules restrict any use of the information to criminally investigate or prosecute any alcohol or drug abuse patient.[facility] FOR RECORDS PERTAINING TO PATIENTS WHO ARE [...] BE BASED ON THE PRIMARY CLINICAL RECORDS. [facility] [employer]. provides no warranty or guarantee of the accuracy or completeness of information in this document.
== END 2024-04-30 11:37 | disposition home or self-care (01) ==
LOC: PM 11:36
PROVIDERS: PCP Family Medicine; Visit Provider Anesthesiology Pain Medicine
DX: M54.50 Low back pain, unspecified (principal); M48.062 Spinal stenosis, lumbar region with neurogenic claudication; M54.16 Radiculopathy, lumbar region
CPT/HCPCS: G0463

== ENCOUNTER 2024-05-06 07:57 | Day surgery (SDC) | payer MEDICARE, OTHER, SELFPAY ==
--- OUTSIDE RECORDS SUMMARY | 2024-05-06 08:14 | XMS_ITS | CCD ---
Author Organization [facility] CliniSyhi Care Team Providers Care Scientific Affairs Manager Name Role Phone FREDY, DR CHAPARRO Attending [...] Care Provider GUERO, LATRELL Primary Care Physician [phone] Pa WEBB Referring Unavailable NILL, Pa Vivas Attending Unavailable NILPa Diaz Admitting Unavailable Dafne Hairston Referring Unavaila ble Dafne Hairston Attending Unavaila ble Ameyamini, Wilson Talal Admitting Unavaila ble Sarmini, Wilson Talal Referring Unavaila ble Sarmini, Wilson Talal Attending Unavaila ble Sarmini, Wilson Talal Admitting Unavaila ble Sarmini, Wilson Talal Attending Unavaila ble Pa WEBB Attending Unavailable LATRELL JACK Referring Unavailable LATRELL JACK Attending Unavailable LATRELL JACK Attending Unavailable DIOMEDES MATUTE Attending Unavailable LATRELL JACK Referring Unavailable JUJU, DIOMEDES Referring Unavailable MAO MORROW Attending Unavailable Tory OLIVO, Dafne Torres Unavailable [phone] Saundra OLIVO, Talat Benedict Attending Unavailable XAVIER BOYD Attending Unava ilable TORY, DAFNE TORRES Referring Unavaila ble Allergies Allergy Classification Reported Allergen(s) Allergy Type Date of Onset Reaction(s) Facility (1 source) Amino Acids Drug Allergy [facility] Repository Medications Current Medications Medication Drug Class(es) [...] Active Start: 09-06-2023 Flonase 0.05 m g/inh [place] 2 spray(s), Nasal, Daily, Refill(s) 0, Dry [...] by mouth. 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] Onset: 4 08-11-2023 Episodic [...] 02-23-2022 Episodic Other aftercare (1 source) Other fdc (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 therapy; Translations: [OTH SKILLED NURSING CURRENT DRUG THERAPY] Onset: 02-23-2022 Episodic Other aftercare (1 source) longterm (current) use of aspirin; Translations: [SKILLED NURSING CURRENT USE OF ASPIRIN] Onset: 02-23-2022 Episodic Other aftercare (2 sources) Long-term current use of drug therapy; Translations: [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 Consult Who is your referring physician? Dafne Hairston Are you having poor oral intake? YES Have you had unintentional weight loss of 15 lbs/7 Kg in the last 3-6 months? NO Bowels: soft, more frequent Wound: none Temperature: No Drains: No Yan Moser 04/29/2024 12:10 PM Signed [facility] Abdominal [facility] - HISTORY AND PHYSICAL SUBJECTIVE: Chief [...] (1.52m) Wt 218 lb (98.9kg) BMI 42.58 kg/(m2). GENERAL: awake, alert and oriented, no acute distress. CARDIOVASCULAR: warm and well perfused throughout, regular rate and rhythm, normal S1 and S2. LUNGS: non-labored breathing, lungs clear to auscultation, good diaphragmatic excursion. ABDOMEN: soft, non-tender, non-distended. EXTREMITY: no lower extremity edema. NEUROLOGICAL: no gross focal neurologic deficits. LABS: Reviewed IMAGING: OSH UGI reviewed and uploaded. Large Type III [facility]. ASSESSMENT/PLAN: chani Boss is a 73 year [...] our MVP Trial. - Consents obtained Yan Moser MD General Surgery [facility], Xavier Acharya MD 04/29/2024 12:10 PM Signed Consultation requested by Dr. Latrell Jack for [...] seen and evaluated the patient and discussed (more content not included)... Normal [facility] 04-22-2024 CNPN Telephone (GENSMN) SHEY BOSS ([id number]) 1950 F Date Time Provider Department 04/22/24 ASHLIE CALDERON During your visit today, we recorded the following information about you: Ashlie Calderon 04/22/2024 5:39 PM Signed Spoke with PT she state no prior surgeries Allergies As of Date: 04/22/2024 (Not on File) Date Reviewed: Never Reviewed Problem List As Of Date: 04/22/2024 (None) Encounter Status:Closed by ASHLIE CALDERON on 04/22/24 Normal [facility] Surgical Pathology Reporton 03-26-2024 Surgical Pathology Report [address] [address]- Surgical Pathology Report Collected Date/Time: 03/20/2024 12:52 EDT Pathologist: Pete Evans MD Received Date/Time: 03/21/2024 08:07 EDT Tory OLIVO, Dafne Hairston MD, Dafne Valentin Surgical Pathology Report - 03/26/2024 18:15 [...] is entirely submitted in one cassette. (DC) DC:[facility] Microscopic Description Microscopic examination performed unless gross only specified. The use of one or more reagents in the above tests is regulated as an analyte specific reagent (ASR). The test or tests are ordered following initial H&E microscopic examination. The performance characteristics were determined by the Laboratory of [facility]. They have not been cleared or approved by the US Food and Drug Administration. The FDA has determined that such clearance or approval is not necessary. These tests are used for clinical purposes. They should not be regarded as investigational or for research. Appropriate positive and negative controls are performed and are acceptable. Normal [facility] Comment on above: Performed By: #### [id number] #### [facility] [address] [place] [address] XR Esophaguson 03-26-2024 XR Esophagus Exam Date/Time: [...] esophagitis, or visualized gastroesophageal reflux. Ordering Provider: Dafne Hairston FINAL REPORT Dictated: 03/26/2024 10:53 am Anibal Londono MD Signed (Electronic Signature): 03/26/2024 10:53 am Signed by: Anibal Londono MD Transcribed by: NEAL Technologist: DENICE Technical Comments Radiation Dose: Ka,r in mGy = 15.80 DAP = 464.17 Normal [facility] Main OR Intraoperative Recor don 03-22-2024 Main OR Intraoperative Record Main OR Intraoperative Record IntraOp Document Type FT Summary Primary Physician: Dafne Hairston MD Finalized Date/Time: 03/22/24 14:46:15 Pt. Name: KARYNSHEY/Sex: 1950 Female Med Rec #: [id number] Physician: Dafne Hairston MD Financial #: [id number] Pt. Type: O Room/Bed: / Admit/Disch: 03/20/24 [...] Catalina Wolff CRNA, CST, Анна Hairston MD, Dafne Torres Role Performed CHEF DE CUISINE Scrub - Primary Surgeon - Primary Time In 03/20/24 12:44:00 03/20/24 12:44:00 03/20/24 12:44:00 Time Out 03/20/24 12:56:00 03/20/24 12:56:00 03/20/24 12:56:00 Procedure EGD(.) EGD(.) EGD(.) Comments Dr. Hairston supervising procedure. Last Modified By: Mynor FORBES, Violette Lopez RN, Essence Pinto RN 03/22/24 14:45:45 03/20/24 12:56:36 03/20/24 12:56:36 Entry 4 Case Attendee Essence Lopez RN Role Performed File Clerk - Primary Time In 03/20/24 12:44:00 Time [...] Catalina Wolff CRNA, Given Participants Dianelys FORBES, Tory Ellington MD, Dafne Torres, Essence Lopez RN Time Out Complete [...] gastric biopsy. Primary Procedure Yes Primary Surgeon Tory OLIVO, Dafne Torres Start 03/20/24 12:49:00 Stop 03/20/24 12:53:00 [...] and tissue Entry 1 Skin Integrity Intact, Sabattus, Warm, & Skin Abnormality No Dry Outcomes [...] Extended Positioning (more content not included)... Normal [facility] Discharge Instructionson Discharge Instructions Discharge Instructions SHEY BOSS :1950 Visit Date:03/20/2024 Inpatient Discharge Instructions Your Care Team Admitting Physician - Dafne Hairston MD Referring Physician - Tory OLIVO, Dafne Torres Reason for Your Visit DYSPHAGIA, HIATIL HERNIA, [...] mg Tab) fluticasone nasal (Flonase 0.05 mg/inh [place]) losartan (losartan 25 mg Tab) multivitamin with [...] Up Appointments after Discharge Follow Up with Tory OLIVO, Dafne Torres, [facility], [facility] When: Comments: Call for any problems. Office [...] Unchanged fluticasone nasal (Flonase 0.05 mg/ inh [place]) 2 Sprays Nasal Inhalation Every day Unchanged [...] get better (more content not included)... Normal [facility] Comment on above: Result Comment: Elec tronically Signed By: Kassy Barker I\.br\Date and Time Signed: 03/20/24 13:08 EDT Inpatient Patient Summaryon 03-20-2024 Inpatient Patient Summary Inpatient Patient Summary [place] [address] [facility] Clinical Discharge Instructions PERSON INFORMATION Name: SHEY BOSS [facility]#:[id number] PHYSICIANS Admitting Physician: Dafne Hairston MD Attending Physician: Dafne Hairston MD PCP: LATRELL JACK MD Diagnosis: [...] (at bedtime). fluticasone nasal (Flonase 0.05 mg/inh [place]) 2 Sprays Nasal Inhalation every day. losartan [...] bedtime) as needed for sleep. Comment: Normal [facility] Main OR PACU I Recordon 03-10 Main OR PACU I Record Main OR PACU I Record PACU Phase I Document Type FT Summary Primary Physician: Dafne Hairston MD Finalized Date/Time: 03/20/24 13:37:02 Pt. Name: SHEY BOSS/Sex: 1950 Female Med Rec #: [id number] Physician: Dafne Hairston MD Financial #: [id number] Pt. Type: O Room/Bed: / Admit/Disch: 03/20/24 [...] By: Kassy Barker I 03/20/24 13:37 Normal [facility] Main OR Preoperative Recordo n 03-20-2024 Main OR Preoperative Record Main OR Preoperative Record Holding Area Document Type FT Summary Primary Physician: Dafne Hairston MD Finalized Date/Time: 03/20/24 11:17:32 Pt. Name: SHEY BOSS/Sex: 1950 Female Med Rec #: [id number] Physician: Dafne Hairston MD Financial #: [id number] Pt. Type: O Room/Bed: / Admit/Disch: 03/20/24 [...] By: Essence Lopez RN 03/20/24 11:17 Normal [facility] Outpatient Surgery Discharge Instructionon 03-20-2024 Outpatient Surgery Discharge Instruction Outpatient Surgery Discharge Instruction [place] [id number] Patient Discharge Instructions PERSON INFORMATION Name: SHEY BOSS Date of : 1950 Current Date: 03/20/2024 12:58:56 PHYSICIANS Admitting Physician: Dafne Hairston MD Discharge Diagnosis: KARYNSHEY GARCIA has been given the following list of [...] NEAREST EMERGENCY ROOM OR CALL 911 I, KARYNSHEY GARCIA, have received the attached patient education materials/instructions and have verbalized understanding: May we do a follow up call? Yes No I was present when discharge instructions were given Patient Signature Date Clinican/Nurse Signature _ Date Follow up: Pharmacy Information: You may receive a survey from [employer] asking you to rate your care experience. Your feedback is important and will help us understand what we do well and how we can improve the quality of care we provide to you, your loved ones and our community. It?s an honor to serve you. Thank you for choosing [facility] HERE ARE THE MEDICATION CHANGES [...] (at bedtime). fluticasone nasal (Flonase 0.05 mg/inh [place]) 2 Sprays Nasal Inhalation every day. losartan [...] sleep. PATIENT EDUCATION INFORMATION Instructions: Medication Leaflets: [facility] Proceduralon 03-20-2024 Procedural Procedural Patient: SHEY BOSS Age: 73 years Sex: Female : 1950 Associated Diagnoses: None Author: Ganga OLIVO, Daquan Olea Postoperative Information Postoperative disposition: Postoperative disposition: To PACU. Optimetrix number: Optimetrix number [id number]. Anesthetic utilized: General. Health Status Allergies: Allergic [...] when meets criteria ( To home ). Kary [facility] Procedural Procedural Patient: SHEY BOSS Age: [...] 1 tab, Oral, Daily Flonase 0.05 mg/inh [place]: 2 spray(s), Nasal, Daily, Refill(s) 0, Dry [...] a day (at bedtime) Flonase 0.05 mg/inh [place] 2 spray(s), Nasal, Daily losartan 25 mg [...] All Problems BMI 39.0-39.9,adult / SNOMED CT 372854060 / Confirmed Chronic obstructive pulmonary disease / SNOMED CT 58608598 / Confirmed Dyslipidemia / SNOMED CT 2163427356 / Confirmed Dysphagia / SNOMED CT 38987617 / Confirmed GERD (gastroesophageal reflux disease) / SNOMED CT 828266579 / Confirmed Hiatal hernia / SNOMED CT 119869264 / Confirmed HTN (hypertension) / SNOMED CT 8820002065 / Confirmed Insomnia / SNOMED CT 783249559 / Confirmed Lower extremity edema / SNOMED CT 744804771 / Confirmed Morbid obesity / SNOMED CT 670439085 / Confirmed EDWIN (obstructive sleep apnea) / SNOMED CT 872901986 / Confirmed Screening for malignant neoplasm of colon / SNOMED CT 441958175 / Confirmed Seasonal allergic rhinitis / SNOMED CT 672053267 / Confirmed TIA (transient ischemic attack) / SNOMED CT 936645072 / Confirmed Resolved: At risk for falls / SNOMED CT 547060705 Problem added when Risk for Falls Careplan was initiated. Resolved due to patient discharge. Resolved: Hernia / SNOMED CT 625503331 Resolved: Potential for deficient knowledge of cerebrovascular accident (CVA) / IMO 20092864 problem added based on Stroke Powerplan ordered. Resolved due to patient discharge. Resolved: Sleep apnea / SNOMED CT 444500954, Active Problems (14) BMI 39.0-39.9,adult Chronic obstructive pulmonary disease Dyslipidemia Dysphagia GERD (gastroesophageal reflux disease) Hiatal hernia HTN (hypertension) Insomnia Lower extremity edema Morbid obesity EDWIN (obstructive sleep apnea) Screening for malignant neoplasm of colon Seasonal allergic rhinitis TIA (transient ischemic (more content not included)... Normal [facility] Ambulatory Visit Summaryon 0 02-26-2024 Ambulatory Visit Summary Ambulatory Visit Summary SHEY BOSS :1950 Visit Date:02/26/2024 Ambulatory Visit Instructions Your Diagnosis Dysphagia Hiatal hernia GERD (gastroesophageal reflux disease) Your Care Team Attending Physician - Dafne Hairston MD Primary Care Physician - LATRELL [...] mg Tab) fluticasone nasal (Flonase 0.05 mg/inh [place]) losartan (losartan 25 mg Tab) multivitamin with [...] Unchanged fluticasone nasal (Flonase 0.05 mg/ inh [place]) 2 Sprays Nasal Inhalation Every day Contact [...] for choosing us for your care. Kary [facility] Gastroenterology Office/Clin ic Noteon 02-26-2024 Gastroenterology [...] or gangrene) reports she had esophagram in [place] no egd in the past declined surgery [...] a day (at bedtime) Flonase 0.05 mg/inh [place], 2 spray(s), Nasal, Daily losartan 25 mg [...] virus vaccine, inactivated 05/03/2022 Recorded SARS-CoV-2 (COVID-19) [id number] 05/03/2022 Recorded influenza virus vaccine, inactivated 04/12/2021 [...] virus vaccine, inactivated 04/16/2015 Recorded Normal [facility] Comment on above: Result Comment: Elec tronically Signed By: Tory OLIVO, Dafne Torres\.br\Date and Time Signed: 02/26/24 09:38 EDT IntraOperative Documentson 0 10-19-2023 IntraOperative Documents [id number] 0TIFF [facility] Consenton 10-16-2023 Consent [id number]#1.00 TIFF Normal [facility] Discharge Instructionson Discharge Instructions [id number]#1.00 TIFF Normal [facility] Main OR Intraoperative Recor don 10-16-2023 Main OR Intraoperative Record IntraOp Document Type FT Summary Primary Physician: Pa WEBB MD Finalized Date/Time: 10/16/23 09:46:21 Pt. Name: SHEY BOSS.O.B./Sex: 1950 Female Med Rec #: [id number] Physician: Pa WEBB MD Financial #: [id number] Pt. Type: O Room/Bed: / Admit/Disch: 10/13/23 [...] Entry 2 Entry 3 Case Attendee Rajwinder Valentin DRAPER MD, Kimberly Mcclellan RN Role Performed Anesthesiologist Surgeon - Primary File Clerk - Primary Tug Boat Engineer Time In 10/13/23 08:55:00 10/13/23 08:55:00 10/13/23 [...] and tissue Entry 1 Skin Integrity Intact, Sabattus, Warm, and Skin Abnormality No Dry Outcomes [...] Infante RN (more content not included)... Normal [facility] Postoperative Documentson Postoperative Documents [id number]#1.00 TIFF Normal [facility] Reminderson 10-16-2023 Reminders - From: Nhi Aguirre LPN To: GSN - Clinical; Sent: 10/16/2023 10:15:48 EDT Show up: 09/11/2033 07:00:00 EST Subject: colonoscopy recall Due Date/Time: 10/12/2033 07:00:00 EDT Reminder/Recall Patient due for screening colonoscopy 10/12/2033. Normal [facility] Colonoscopy Procedure Report on 10-13-2023 Colonoscopy [...] for screening for malignant neoplasm of rectum ([id number] Z12.12, Discharge, Medical). Course: Progressing as expected. Recommendations: Repeat colonoscopy:: In 10 years. Follow-up:: if problems/questions. Diet:: Regular diet. Medication resumption:: Continue current medications. Return to activities:: After 24 hours. Education and Follow-up: Counseled: Family. [facility] Comment on above: Other Comment: Samreen dueñas Attachment - attachment storage system not supported [id number] Can be viewed in source systemMissing Attachment - attachment storage system not supported [id number] Can be viewed in source systemMissing Attachment - attachment storage system not supported [id number] Can be viewed in source systemMissing Attachment - attachment storage system not supported 2637990 Can be viewed in source systemMissing Attachment - attachment storage system not supported [id number] Can be viewed in source system Consent for Treatmenton Consent for Treatment [id number] IFF [facility] Discharge Instructionson Discharge Instructions SHEY BOSS [...] mg Tab) fluticasone nasal (Flonase 0.05 mg/inh [place]) losartan (losartan 25 mg Tab) multivitamin with [...] Pa WEBB When: Only if needed Where: [address] [place], [place] [address], [address] [place] [phone]- Business (1) Medications What How Much When [...] Unchanged fluticasone nasal (Flonase 0.05 mg/ inh [place]) 2 Sprays Nasal Inhalation Every day Unchanged [...] as instru (more content not included)... Normal [facility] Comment on above: Result Comment: Elec tronically Signed By: Marcy FORDE, Mariaelena\.br\Date and Time Signed: 10/13/23 09:33 EDT Inpatient Patient Summaryon 10-13-2023 Inpatient Patient Summary [address] [address] [facility] Clinical Discharge Instructions PERSON INFORMATION Name: SHEY BOSS [facility]#:[id number] PHYSICIANS Admitting Physician: Pa WEBB MD Attending Physician: Pa WEBB MD PCP: LATRELL JACK MD Discharge Diagnosis: Encounter for colorectal cancer screening; Encounter for screening for malignant neoplasm of rectum Comment: PATIENT EDUCATION INFORMATION Instructions: Medication Leaflets: Follow up: With: Address: When: Pa WEBB [facility] [address], [place] [phone] Business (1) , only if needed MEDICATION [...] (at bedtime). fluticasone nasal (Flonase 0.05 mg/inh [place]) 2 Sprays Nasal Inhalation every day. losartan [...] bedtime) as needed for sleep. Comment: Normal [facility] Main OR PACU I Recordon Main OR PACU I Record PACU Phase I Document Type FT Summary Primary Physician: Pa WEBB MD Finalized Date/Time: 10/13/23 09:54:27 Pt. Name: SHEY BOSS/Sex: 1950 Female Med Rec #: [id number] Physician: Pa WEBB MD Financial #: [id number] Pt. Type: O Room/Bed: / Admit/Disch: 10/13/23 [...] By: Mariaelena Vidal RN 10/13/23 09:54 Normal [facility] Main OR Preoperative Recordo n 10-13-2023 Main OR Preoperative Record Holding Area Document Type FT Summary Primary Physician: Pa WEBB MD Finalized Date/Time: 10/13/23 08:06:06 Pt. Name: SHEY BOSS/Sex: 1950 Female Med Rec #: [id number] Physician: Pa WEBB MD Financial #: [id number] Pt. Type: O Room/Bed: / Admit/Disch: 10/13/23 [...] Signed By: Olivia Domínguez 10/13/23 08:06 Normal [facility] Monitor Recordon 10-13-2023 Monitor Record [id number] TIFF Normal [facility] Monitor Record [id number] TIFF Normal [facility] Outpatient Surgery Discharge Instructionon 10-13-2023 Outpatient Surgery Discharge Instruction [place] [id number] Patient Discharge Instructions PERSON INFORMATION Name: SHEY [...] With: Address: When: [address], [address], [place] [phone] Business (1) , only if needed Pharmacy Information: You may receive a survey from [employer] asking you to rate your care experience. Your feedback is important and will help us understand what we do well and how we can improve the quality of care we provide to you, your loved ones and our community. It?s an honor to serve you. Thank you for choosing [facility] HERE ARE THE MEDICATION CHANGES [...] (at bedtime). fluticasone nasal (Flonase 0.05 mg/inh [place]) 2 Sprays Nasal Inhalation every day. losartan [...] sleep. PATIENT EDUCATION INFORMATION Instructions: Medication Leaflets: [facility] Patient Education - Texton 0 10-13-2023 [...] or gets worse throughout the day. Normal [facility] Progress Note-Physicianon Progress Note-Physician Patient: SHEY BOSS Age: 73 years Sex: Female : 1950 Associated Diagnoses: None Author: Shaji Bethea Jr., DO Postoperative Information Postoperative disposition: Postoperative disposition: Home. Optimetrix number: Optimetrix number [id number]. Anesthetic utilized: General. Physical Examination Vital Signs [...] Surgery Unit, and To home ). Normal [facility] Comment on above: Result Comment: Elec [...] m2 Documented Medications Documented Flonase 0.05 mg/inh [place]: 2 spray(s), Nasal, Daily, Refill(s) 0, Dry [...] a day (at bedtime) Flonase 0.05 mg/inh [place] 2 spray(s), Nasal, Daily losartan 25 mg [...] All Problems BMI 39.0-39.9,adult / SNOMED CT 115422799 / Confirmed Chronic obstructive pulmonary disease / SNOMED CT 16922522 / Confirmed Dyslipidemia / SNOMED CT 4774814998 / Confirmed GERD (gastroesophageal reflux disease) / SNOMED CT 426713171 / Confirmed Hiatal hernia / SNOMED CT 401313943 / Confirmed HTN (hypertension) / SNOMED CT 8753295645 / Confirmed Insomnia / SNOMED CT 832182250 / Confirmed Lower extremity edema / SNOMED CT 421589406 / Confirmed Morbid obesity / SNOMED CT 532306948 / Confirmed EDWIN (obstructive sleep apnea) / SNOMED CT 492995534 / Confirmed Screening for malignant neoplasm of colon / SNOMED CT 118221500 / Confirmed Seasonal allergic rhinitis / SNOMED CT 389847213 / Confirmed TIA (transient ischemic attack) / SNOMED CT 966520688 / Confirmed Resolved: At risk for falls / SNOMED CT 257494008 Problem added when Risk for Falls Careplan was initiated. Resolved due to patient discharge. Resolved: Hernia / SNOMED CT 080762373 Resolved: Potential for deficient knowledge of cerebrovascular accident (CVA) / IMO 78709820 problem added based on Stroke Powerplan ordered. Resolved due to patient discharge. Resolved: Sleep apnea / SNOMED CT 843248156 Histories Past Medical History: Resolved Hernia (071214726): Resolved. Sleep apnea (397671709): Resolved. Procedure history: ORIF - Open reduction of fracture of ankle with internal fixation ([id number]). Meniscal repair (559653202). Tonsillectomy (284733741). Hand tendon repaired (835771409). Social History Social & Psychosocial Habits Alcohol 09/12/2023 Frequency: 1-2 times per year Substance Abuse Comment: denies - 03/03/2021 07:19 - Carolyn Stewart RN 09/12/2023 Risk Assessment: Denies Substance Abuse Tobacco 09/12/2023 Tobacco Use: Former smoker, quit more Smokeless tobacco use: Never Type: Cigarettes . Physical Examination Vital Signs 10/13/2023 8:03 EDT Temperature Temporal Artery 36.3 DegC (more content not included)... Normal [facility] Comment on above: Result Comment: Elec tronically Signed By: Lake Higuera DO, Shaji Bailon\Date and Time Signed: 10/13/23 08:04 EDT Consent for Procedure/Surger yon 09-13-2023 Consent for Procedure/Surgery [id number] FF Normal [facility] Ambulatory Visit Summaryon 0 09-12-2023 Ambulatory [...] mg Tab) fluticasone nasal (Flonase 0.05 mg/inh [place]) losartan (losartan 25 mg Tab) multivitamin with [...] Unchanged fluticasone nasal (Flonase 0.05 mg/ inh [place]) 2 Sprays Nasal Inhalation Every day Contact [...] for choosing us for your care. Normal [facility] Provider Letteron 08-25-2023 Provider Letter (Inserted Image. Celia ble to display) August 25, 2023 SHEY BOSS [address] [place] [address] : 1950 Dear Ms. Boss, We have been trying to reach you with no success regarding a referral from Dr Jack. It is important that you return our call upon receiving this letter so that we can set up an appointment for you in either our [place] or [place] office. Also, at the time of your call, please provide us with your current demographic and insurance information. Thank you for your prompt attention to this matter. Sincerely, [facility] General Surgery [phone] Normal [facility] Physician Referralon 024 Physician Referral [phone] 202 [id number] [id number] Normal [facility] CT LUNG CANCER SCREENINGon 0 07-28-2022 [...] MEHNAZ SANTIAGO Date: 2022-07-28 15:28 Normal [facility] BNPon 02-22-2022 Natriuretic peptide B (Bld) [Mass/Vol] 108.0 pg/mL Normal <=900.0 [facility] Comment on above: Performed By: #### B MP, BNP, HSTROPN ####[facility] [address] [place], [place] [address]LqMichelle Felisa Trujillo CBC AUTO DIFFon 02-22-2022 BASO # 0.0 103/ul Normal 0.0-0.1 [facility] Comment on above: Performed By: #### C BC ####[facility] [address] [place] [id number]. Felisa Trujillo Basophils/100 WBC (Bld) 0.7 % Normal 0.2-2.0 [facility] Comment on above: Performed By: #### C BC ####[facility] [address] [place] [id number]. Felisa Trujillo EO # 0.1 103/ul Normal 0.0-0.7 [facility] Comment on above: Performed By: #### C BC ####[facility] [address] [place], [place] [id number]. Felisa Trujillo Eosinophils/100 WBC (Bld) 1.4 % Normal 0.9-7.0 [facility] Comment on above: Performed By: #### C BC ####[facility] [address] [place], [place] [address]Dr. Felisa Trujillo Erythrocyte distribution width (RBC) [Ratio] 13.2 % Normal 11.0-15.0 [facility] Comment on above: Performed By: #### C BC ####[facility] I[address] [place], [place] [id number]. Felisa Trujillo Hematocrit (Bld) [Volume fraction] 36.6 % Normal 36.0-48.0 [facility] Comment on above: Performed By: #### C BC ####[facility] [address] [place], [place] [address]Dr. Felisa Trujillo Hemoglobin (Bld) [Mass/Vol] 12.7 g/dL Normal 12.0-16.0 [facility] Comment on above: Performed By: #### C BC ####[facility] [address] [place], [place] [address]Dr. Felisa Trujillo IG # 0.01 10e3/ul Normal 0.00-0.03 [facility] Comment on above: Performed By: #### C BC ####[facility] Vftkb[address] [place], [place] [address]Dr. Felisa Trujillo IG % 0.2 % Normal 0.0-0.5 [facility] Comment on above: Performed By: #### C BC ####[facility] X[address] [place] [id number]. Felisa Trujillo LYMPH # 1.0 103/ul Critically low 1.2-3.8 The [facility] Comment on above: Performed By: #### C BC ####[facility] Af[address] [place] [id number]. Felisa Ronnie Lymphocytes/100 WBC (Bld) 22.3 % Normal 20.5-60.0 [facility] Comment on above: Performed By: #### C BC ####[facility] [address]we[address] [place] [id number]. Krystakun Trujillo MANUAL DIFF REQ NO Normal [facility] Comment on above: Performed By: #### C BC ####[facility] [address]ft[address] [place] [id number]. Felisa Ronnie MCH (RBC) [Entitic mass] 31.8 pg Normal 26.7-34.0 [facility] Comment on above: Performed By: #### C BC ####[facility] [address] [place] [id number]. Felisa Trujillo MCHC (RBC) [Mass/Vol] 34.7 g/dL Normal 29.9-35.2 [facility] Comment on above: Performed By: #### C BC ####[facility] [address]fr[address]asc[address] [place] [address]Dr. Felisa Trujillo MCV (RBC) [Entitic vol] 91.7 fL Normal 81.0-99.0 [facility] Comment on above: Performed By: #### C BC ####[facility] [address] [place] [id number]. Felisa Ronnie MONO # 0.5 103/ul Normal 0.3-0.8 [facility] Comment on above: Performed By: #### C BC ####[facility] [address] [place] [address]Dr. Krystakun Trujillo Monocytes/100 WBC (Bld) 11.7 % Normal 1.7-12.0 [facility] Comment on above: Performed By: #### C BC ####[facility] [address] [place], [place] [address]Wx. Felisa Trujillo NEUT # 2.7 103/ul Normal 1.4-6.5 [facility] Comment on above: Performed By: #### C BC ####[facility] [address]rxcl[address] [place], [place] [address]Ac. Felisa Trujillo Neutrophils/100 WBC (Bld) 63.7 % Normal 43.0-75.0 [facility] Comment on above: Performed By: #### C BC ####[facility] [address] [place] [phone]. Felisa Trujillo Platelet mean volume (Bld) [Entitic vol] 10.2 fL Normal 9.5-13.5 [facility] Comment on above: Performed By: #### C BC ####[facility] [address] [place] [phone]. Felisa Trujillo PLT 149 103/ul Critically low 150-450 [facility] Comment on above: Performed By: #### C BC ####[facility] Alwh[address]fe[address] [place], [place] [address]Jj. Felisa Trujillo RBC 3.99 106/ul Critically low 4.20-5.[address] [facility] Comment on above: Performed By: #### C BC ####[facility] [address] [place] [phone]. Felisa Trujillo WBC 4.3 103/ul Normal 4.0-11.0 [facility] Comment on above: Performed By: #### C BC ####[facility] [address]zb[address] [place] [phone]. Felisa Trujillo Covid-19 PCR (CVDTB)on 02-07 SARS-CoV-2 (COVID-19) RNA DUGLAS+probe Ql (Unsp spec) Detected Critically abnormal NOT DETECTED [facility] Comment on above: Result Comment: This test is not yet approved or cleared by the [place] FDA. When there are no FDA-approved or cleared tests available, and other criteria are met, FDA can make tests available under an emergency access mechanism called an Emergency Use Authorization (EUA). The EUA for this test is supported by the [place] of Health and Human Service's declaration that [...] be used). Performed By: #### C VDTBH ####[facility] [address]wy[address]pj[address] [place], [place] [address]Dr. Felisa Trujillo PROF CHEM 8 (BAS METB)on Anion gap [Moles/Vol] 14.9 mmol/L Normal [facility] Comment on above: Performed By: #### B MP, BNP, HSTROPN ####[facility] Mcanzfwwjd[address] [place], [place] [address]Dr. Felisa Trujillo Calcium [Mass/Vol] 8.9 mg/dL Normal 8.5-10.1 [facility] Comment on above: Performed By: #### B MP, BNP, HSTROPN ####[facility] P[address] [place], [place] [address]Dr. Felisa Trujillo Chloride [Moles/Vol] 104 mmol/L Normal 98-107 [facility] Comment on above: Performed By: #### B MP, BNP, HSTROPN ####[facility] J[address]oc[address] [place], [place] [address]Dr. Felisa Trujillo CO2 [Moles/Vol] 24.0 mmol/L Normal 21.0-32.0 [facility] Comment on above: Performed By: #### B MP, BNP, HSTROPN ####[facility] Nmitilnejo[address] [place], [place] [address]Dr. Felisa Trujillo Creatinine [Mass/Vol] 0.98 mg/dL Normal 0.55-1.02 [facility] Comment on above: Performed By: #### B MP, BNP, HSTROPN ####[facility] K[address] [place], [place] [address]Dr. Felisa Trujillo EGFR-AF TRISTANIAN >60 Normal >=60 [facility] Comment on above: Performed By: #### B MP, BNP, HSTROPN ####[facility] [address] [place] [address]Dr. Felisa Trujillo EGFR-NON AF TRISTANIAN 56 mL/min/1.73m2 Critically low >=60 [facility] Comment on above: Performed By: #### B MP, BNP, HSTROPN ####[facility] Cmkubiyncz[address] [place], [place] [address]Dr. Felisa Trujillo Glucose [Mass/Vol] 136 mg/dL Critically high 74-106 T [facility] Comment on above: Performed By: #### B MP, BNP, HSTROPN ####[facility] Oxrhqypywc[address] [place], [place] [address]Dr. Felisa Trujillo Potassium [Moles/Vol] 3.9 mmol/L Normal 3.5-5.1 [facility] Comment on above: Performed By: #### B MP, BNP, HSTROPN ####[facility] [address]osniff[address] [place], [place] [address]Dr. Felisa Trujillo Sodium [Moles/Vol] 139 mmol/L Normal 136-145 [facility] Comment on above: Performed By: #### B MP, BNP, HSTROPN ####[facility] Okgjorpahf[address] [place], [place] [address]Dr. Felisa Trujillo Urea nitrogen [Mass/Vol] 14.0 mg/dL Normal 7.0-18.0 [facility] Comment on above: Performed By: #### B MP, BNP, HSTROPN ####[facility] [address] [place], [place] [address]Dr. Felisa Trujillo Urea nitrogen/Creatinine [Mass ratio] 14.3 mg/mg Normal [facility] Comment on above: Performed By: #### B MP, BNP, HSTROPN ####[facility] [address]ns[address] [place], [place] [address]Dr. Felisa Trujillo TROPONIN, HIGH SENSITIVITYon 02-22-2022 HSTROP 5.9 pg/mL Normal 4.0-51.3 [facility] Comment on above: Result Comment: CUT- OFF POINTS HAVE BEEN ESTABLISHED BASED ON THE FOURTH UNIVERSAL DEFINITIONS OF MYOCARDIAL INFARCTION. THE UPPER REFERENCE LIMIT (URL) OF TROPONIN, DEFINED THE 99TH PERCENTILE OF cTnI DISTRIBUTION IN A REFERENCE POPULATION, HAS BEEN CONFIRMED THE DECISION THRESHOLD FOR CA DIAGNOSIS. Performed By: #### B MP, BNP, HSTROPN ####[facility] [address] [place], [place] [address]Hi. Felisa Trujillo XR CHEST 1 Von 02-22-2022 [...] MEHNAZ SANTIAGO Date: 2022-02-22 13:30 Normal [facility] MAMM SCREEN 3D RONALD CADon 11-11-2021 MG MAMM SCREEN 3D RONALD CAD Patient: SHEY BOSS Exam Date: 11/11/2021 : 1950 Gender:F Ordering : DR LATRELL JACK . Admission #: [id number] Family : Order #: [id number] CLICK HERE TO VIEW EXAM RADIOLOGY REPORT [...] lung cancer at age 46. LOCATION: [facility] BREAST COMPOSITION: Almost entirely fatty. FINDINGS: DIAGNOSTIC [...] MD on 11/11/2021 at 13:04 Normal [facility] BNPon 11-02-2021 Natriuretic peptide B (Bld) [Mass/Vol] 42.0 pg/mL Normal <=900.0 [facility] Comment on above: Performed By: #### H STROPN, CMP, BNP #### [facility] Laboratory [address] [place] [address] Dr. Felisa Trujillo CBC AUTO DIFFon 11-02-2021 BASO # 0.1 103/ul Normal 0.0-0.1 [facility] Comment on above: Performed By: #### C BC #### [facility] Laboratory [address] [place] [address] Dr. Felisa Trujillo Basophils/100 WBC (Bld) 0.8 % Normal 0.2-2.0 [facility] Comment on above: Performed By: #### C BC #### [facility] [address] [place] [address] Dr. Felisa Trujillo EO # 0.3 103/ul Normal 0.0-0.7 [facility] Comment on above: Performed By: #### C BC #### [facility] [address] [place] [address] Dr. Felisa Trujillo Eosinophils/100 WBC (Bld) 3.9 % Normal 0.9-7.0 [facility] Comment on above: Performed By: #### C BC #### [facility] Laboratory [address] [place] [address] Dr. Felisa Trujillo Erythrocyte distribution width (RBC) [Ratio] 12.7 % Normal 11.0-15.0 [facility] Comment on above: Performed By: #### C BC #### [facility] [address] [place] [address] Dr. Felisa Trujillo Hematocrit (Bld) [Volume fraction] 40.2 % Normal 36.0-48.0 [facility] Comment on above: Performed By: #### C BC #### [facility] [address] [place] [address] Dr. Felisa Trujillo Hemoglobin (Bld) [Mass/Vol] 13.6 g/dL Normal 12.0-16.0 [facility] Comment on above: Performed By: #### C BC #### [facility] [address] [place] [address] Dr. Felisa Trujillo IG # 0.02 10e3/ul Normal 0.00-0.03 [facility] Comment on above: Performed By: #### C BC #### [facility] [address] [place] [address] Dr. Felisa Trujillo IG % 0.3 % Normal 0.0-0.5 [facility] Comment on above: Performed By: #### C BC #### [facility] [address] [place] [address] Dr. Felisa Trujillo LYMPH # 1.9 103/ul Normal 1.2-3.8 [facility] Comment on above: Performed By: #### C BC #### [facility] [address] [place] [address] Dr. Felisa Trujillo Lymphocytes/100 WBC (Bld) 30.0 % Normal 20.5-60.0 [facility] Comment on above: Performed By: #### C BC #### [facility] [address] [place] [address] Dr. Felisa Trujillo MANUAL DIFF REQ NO Normal [facility] Comment on above: Performed By: #### C BC #### [facility] [address] [place] [address] Dr. Felisa Trujillo MCH (RBC) [Entitic mass] 31.5 pg Normal 26.7-34.0 [facility] Comment on above: Performed By: #### C BC #### [facility] [address] [place] [address] Dr. Felisa Trujillo MCHC (RBC) [Mass/Vol] 33.8 g/dL Normal 29.9-35.2 [facility] Comment on above: Performed By: #### C BC #### [facility] [address] [place] [address] [address] Felisa Trujillo MCV (RBC) [Entitic vol] 93.1 fL Normal 81.0-99.0 [facility] Comment on above: Performed By: #### C BC #### [facility] [address] [place] [address] [address] Felisa Trujillo MONO # 0.6 103/ul Normal 0.3-0.8 [facility] Comment on above: Performed By: #### C BC #### [facility] [address] [place] [address] Dr. Felisa Trujillo Monocytes/100 WBC (Bld) 8.5 % Normal 1.7-12.0 [facility] Comment on above: Performed By: #### C BC #### [facility] [address] [place] [address] Dr. Felisa Trujillo NEUT # 3.7 103/ul Normal 1.4-6.5 [facility] Comment on above: Performed By: #### C BC #### [facility] [address] [place] [address] Dr. Felisa Trujillo Neutrophils/100 WBC (Bld) 56.5 % Normal 43.0-75.0 [facility] Comment on above: Performed By: #### C BC #### [facility] [address] [place] [address] Dr. Felisa Trujillo Platelet mean volume (Bld) [Entitic vol] 9.9 fL Normal 9.5-13.5 [facility] Comment on above: Performed By: #### C BC #### [facility] [address] [place] [address] Dr. Felisa Trujillo PLT 193 103/ul Normal 150-450 [facility] Comment on above: Performed By: #### C BC #### [facility] [address] [place] [address] Dr. Felisa Trujillo RBC 4.32 106/ul Normal 4.20-5.40 [facility] Comment on above: Performed By: #### C BC #### [facility] [address] [place] [address] Dr. Felisa Trujillo WBC 6.5 103/ul Normal 4.0-11.0 [facility] Comment on above: Performed By: #### C BC #### [facility] [address] [place] [address] [address] Felisa Trujillo [facility]on 10-09 SARS-CoV-2 (COVID-19) RNA DUGLAS+probe Ql (Unsp spec) Not detected Normal NOT DETECTED [facility] Comment on above: Result Comment: When diagnostic [...] for this test is supported by the [place] of Health and Human Service's declaration that [...] used). Performed By: #### C VDTBH #### [facility] [address] [place] [address] [address] Felisa Trujillo LACTATE/LACTIC ACIDon 2021 Lactate [Moles/Vol] 1.0 mmol/L Normal 0.4-2.0 [facility] Comment on above: Performed By: #### L ACT ####[facility] [address] [place] [id number]. Felisa Trujillo PH VENOUS BLOODon 11-02-2021 PCO2 VENOUS 40.3 mmHg Normal 40.0-52.0 [facility] Comment on above: Performed By: #### P HVEN ####[facility] [address] [place] [address]Dr. Felisa Trujillo pH VENOUS 7.431 Critically high 7.330-7.430 [facility] Comment on above: Performed By: #### P HVEN ####[facility] [address] [place] [address]Dr. Felisa Trujillo PROF 14(COMP METB)on 022 Albumin [Mass/Vol] 4.1 g/dL Normal 3.4-5.0 [facility] Comment on above: Performed By: #### H STROPN, CMP, BNP ####[facility] [address] [place] [address]Dr. Felisa Trujillo Albumin/Globulin [Mass ratio] 1.1 {ratio} Normal [facility] Comment on above: Performed By: #### H STROPN, CMP, BNP ####[facility] [address] [place] [address]Dr. Felisa Trujillo ALP [Catalytic activity/Vol] 120 U/L Critically high 46-116 [facility] Comment on above: Performed By: #### H STROPN, CMP, BNP ####[facility] [address] [place] [address]Dr. Felisa Trujillo ALT [Catalytic activity/Vol] 29 U/L Normal 14-59 [facility] Comment on above: Performed By: #### H STROPN, CMP, BNP ####[facility] [address] [place] [address]Dr. Felisa Trujillo Anion gap [Moles/Vol] 14.2 mmol/L Normal [facility] Comment on above: Performed By: #### H STROPN, CMP, BNP ####[facility] [address] [place] [address]Dr. Felisa Trujillo AST [Catalytic activity/Vol] 24 U/L Normal 15-37 [facility] Comment on above: Performed By: #### H STROPN, CMP, BNP ####[facility] [address] [place] [address]Dr. Felisa Trujillo Bilirubin [Mass/Vol] 0.6 mg/dL Normal 0.2-1.0 [facility] Comment on above: Performed By: #### H STROPN, CMP, BNP ####[facility] [address] [place] [address]Dr. Felisa Trujillo Calcium [Mass/Vol] 8.8 mg/dL Normal 8.5-10.1 [facility] Comment on above: Performed By: #### H STROPN, CMP, BNP ####[facility] [address] [place] [address]Dr. Felisa Trujillo Chloride [Moles/Vol] 103 mmol/L Normal 98-107 [facility] Comment on above: Performed By: #### H STROPN, CMP, BNP ####[facility] [address] [place] [address]Dr. Felisa Trujillo CO2 [Moles/Vol] 25.3 mmol/L Normal 21.0-32.0 [facility] Comment on above: Performed By: #### H STROPN, CMP, BNP ####[facility] [address] [place], [place] [address]Dr. Felisa Trujillo Creatinine [Mass/Vol] 0.86 mg/dL Normal 0.55-1.02 [facility] Comment on above: Performed By: #### H STROPN, CMP, BNP ####[facility] [address] [place] [address]Dr. Felisa Trujillo EGFR-AF TRISTANIAN >60 Normal >=60 [facility] Comment on above: Performed By: #### H STROPN, CMP, BNP ####[facility] [address] [place], [place] [address]Dr. Felisa Trujillo EGFR-NON AF TRISTANIAN >60 Normal >=60 [facility] Comment on above: Performed By: #### H STROPN, CMP, BNP ####[facility] [address]xs[address] [place] [address]Dr. Felisa Trujillo Globulin (S) [Mass/Vol] 3.6 g/dL Normal [facility] Comment on above: Performed By: #### H STROPN, CMP, BNP ####[facility] [address] [place] [address]Dr. Felisa Trujillo Glucose [Mass/Vol] 90 mg/dL Normal 74-106 [facility] Comment on above: Performed By: #### H STROPN, CMP, BNP ####[facility] [address] [place] [address]Dr. Felisa Trujillo Potassium [Moles/Vol] 3.5 mmol/L Normal 3.5-5.1 [facility] Comment on above: Performed By: #### H STROPN, CMP, BNP ####[facility] [address] [place] [address]Dr. Felisa Trujillo Protein [Mass/Vol] 7.7 g/dL Normal 6.1-8.2 [facility] Comment on above: Performed By: #### H STROPN, CMP, BNP ####[facility] [address] [place] [address]Dr. Felisa Trujillo Sodium [Moles/Vol] 139 mmol/L Normal 136-145 [facility] Comment on above: Performed By: #### H STROPN, CMP, BNP ####[facility] [address] [place] [address]Dr. Felisa Trujillo Urea nitrogen [Mass/Vol] 13.0 mg/dL Normal 7.0-18.0 [facility] Comment on above: Performed By: #### H STROPN, CMP, BNP ####[facility] [address] [place] [address]Dr. Felisa Trujillo Urea nitrogen/Creatinine [Mass ratio] 15.1 mg/mg Normal [facility] Comment on above: Performed By: #### H STROPN, CMP, BNP ####[facility] [address] [place] [address]DrMichelle Trujillo PROTIMEon 11-02-2021 INR Coag (PPP) [Relative time] 0.99 {INR} Normal [facility] Comment on above: Performed By: #### P TT, PT #### [facility] Laboratory [address] [address] [address] Felisa Trujillo INR GUIDELINES SEE BELOW Normal [facility] Comment on above: Result Comment: KAY RED INR: 2.0 - 3.0 CONDITIONS NOT LISTED BELOW 2.5 - 3.5 FOR PROSTHETIC HEART VALVE REPLACEMENT 2.5 - 3.5 RECURRENT THROMBOSIS Performed By: #### P TT, PT #### [facility] [address] [address] [address] Felisa Trujillo PT Coag (PPP) [Time] 10.7 s Normal 9.0-11.6 [facility] Comment on above: Performed By: #### P TT, PT #### [facility] [address] [address] [address] Felisa Trujillo PTTon 11-02-2021 aPTT Coag (Bld) [Time] 25.9 s Normal 22.3-36.2 [facility] Comment on above: Performed By: #### P TT, PT #### [facility] [address] [place] [address] Dr. Felisa Trujillo TROPONIN, HIGH SENSITIVITYon 11-02-2021 HSTROP 8.7 pg/mL Normal 4.0-51.3 The [facility] Comment on above: Result Comment: CUT- OFF POINTS HAVE BEEN ESTABLISHED BASED ON THE FOURTH UNIVERSAL DEFINITIONS OF MYOCARDIAL INFARCTION. THE UPPER REFERENCE LIMIT (URL) OF TROPONIN, DEFINED THE 99TH PERCENTILE OF cTnI DISTRIBUTION IN A REFERENCE POPULATION, HAS BEEN CONFIRMED THE DECISION THRESHOLD FOR CA DIAGNOSIS. Performed By: #### H STROPN, CMP, BNP #### [facility] [address] [place] [address] Dr. Felisa Trujillo Covid-19 PCR [facility]on SARS-CoV-2 (COVID-19) RNA DUGLAS+probe Ql (Unsp spec) Not detected Normal NOT DETECTED The [facility] Comment on above: Result Comment: This test is not yet approved or cleared by the [place] FDA. When there are no FDA-approved or cleared tests available, and other criteria are met, FDA can make tests available under an emergency access mechanism called an Emergency Use Authorization (EUA). The EUA for this test is supported by the [place] of Health and Human Service's (HHS's) declaration [...] consistent with SARS-CoV-2. Performed By: #### [facility] #### [facility] [address] [place], [place] [address] Dr. Felisa Trujillo XR CHEST 2 Von [...] by: MEHNAZ SANTIAGO Date: 2021-09-02 14:39 Normal [facility] - AP Resultson 9 Lab - AP Results [id number]#1.00OT GTIFF Normal [facility] Pathology Sendout Teston Pathology Send Out. See Report Normal [facility] Comment on above: Order Comment: left ring finger , cyst tendon sheath Performed By: #### 2 [id number] ####[facility] (DEFAULT)[address] [place] [address] Coding Summaryon 02-08-2019 Coding Summary CODING DATE: 019 FINAL [facility] STATUS: Home PAYOR: Medicare MC APC DESCRIPTION 5112 Level 2 Musculoskeletal Procedures ADMIT DX: REASON FOR VISIT DX: M65.342 Trigger finger, left ring finger FINAL DX: PRINCIPAL: M65.342 Trigger finger, left ring finger SECONDARY: M67.442 Ganglion, left hand J44.9 Chronic obstructive pulmonary disease, unspecified PYMT PROC APC STAT DESCRIPTION DOCTOR NAME DATE 04471 5112 J1 Excision of lesion of Daquan [...] Cassy Bradley Date Saved: 02/08/2019 11:52 am [facility] Consent Formson 02-05-2019 Consent Forms [id number]#1.00OT [facility] Discharge Instructionson Discharge Instructions [id number]#1.00OT [facility] History and Physicalon 02-05 History and Physical [id number]#1.00OT [facility] MAGR Intraoperative Recordon 02-05-2019 MAGR Intraoperative Record MAGR Intra-Op Record Summary Primary Physician: Daquan Antunez DO Finalized Date/Time: 02/05/19 07:41:01 Pt. Name: SHEY BOSS NORMAN Willett/Sex: 1950 FEMALE Med Rec #: [id number] Physician: Daquan Antunez DO Financial #: [id number] Pt. Type: D Room/Bed: / Admit/Disch: 02/04/19 [...] Role Performed Surgeon - Primary Anesthesiologist of File Clerk Record Time In 02/04/19 15:31:00 02/04/19 15:31:00 02/04/19 15:31:00 Time Out 02/04/19 16:08:00 02/04/19 16:08:00 02/04/19 16:08:00 Procedure Trigger Finger Release Trigger Finger Release Trigger Finger Release Last Modified By: Toshia Plascencia RN, Barbara RN Long, Barbara RN 02/04/19 16:16:05 02/04/19 16:16:05 02/04/19 16:16:05 Entry 4 Entry 5 Case Attendee Paloma Esparza Regina CST Role Performed Scrub Personnel Jewel Waxer Time In 02/04/19 15:31:00 02/04/19 15:31:00 Time [...] Modify Pick List 02/05/19 07:40 MHBLONG Modify [facility] Medication Managementon 01-09 Medication Management [id number]#1.00OT [facility] Provider Orderson 02-05-2019 Provider Orders [id number]#1.00OT [facility] Anesthesia Noteon 02-04-2019 Anesthesia Note Patient: [...] Problems Chronic back pain / SNOMED CT 094954625 / Confirmed Former smoker / SNOMED CT 98292144 / Confirmed GERD (gastroesophageal reflux disease) / SNOMED CT 725314816 / Confirmed Scar tissue / SNOMED CT 162501026 / Confirmed Sleep apnea / SNOMED CT 997551509 / Confirmed Histories Family History: No family history items have been selected or recorded. Procedure history: Tonsillectomy (325913346). Epidural injection of lumbar spine using fluoroscopic guidance (2541151667). Social History Alcohol Assessment Use: Current. Beer, [...] rhythm. Review / Management Laboratory Results Plan [place] [employer]hesi[employer]#(ASA) physical status classification: Class [...] on: 02/04/2019 15:44 EDT] Alirio Mcclellan MD Normal [facility] Inpatient Patient Summaryon 02-04-2019 Inpatient [place] [address] Patient Discharge Instructions Name: SHEY BOSS : 52 Patient [address]: [address] [place] [address] Primary Care Provider: Name: LATRELL JACK After you are discharged if you find you have any questions, please, call [phone] ext [phone] to speak to a nurse. Discharge Diagnosis: Trigger finger Prescription Information: If you have been given a prescription for narcotics, seek immediate medical attention if you have any difficulty breathing or any sudden status changes such as confusion and sleepiness. If you or anyone you know is experiencing suicidal thoughts, mental health, alcohol and/or drug addiction problems; contact the [facility] 30/01 Crisis Hotline -Text 4HOPE to 738121. If you received any narcotics, sedation, or [...] business decisions or sign any legal documents [facility] would like to thank you for allowing us to assist you with your healthcare needs. The following includes patient education materials and information regarding your injury/illness. ALPA BOSSON NORMAN has been given the following list of follow-up instructions, prescriptions, and patient education materials: Follow-up Instructions With: Address: When: Daquan Antunez [address] [facility], [address] [place] [address] Business (2) 02/12/2019 2:00 PM With: Address: When: LATRELL JACK [address] [place], [place] [id number] Business (1) Medications During the course of [...] awake -DO NOT lift heavy objects or lens polisher hand forcefully with the affected hand -DO NOT [...] or concerns, please call the office at [phone] or go to the emergency room -Follow [...] for Disease Control and Prevention March 2014 [facility] 02-04-2019 MAGR Postoperative Record [facility] Record Summary Primary Physician: Daquan Antunez DO Finalized Date/Time: 02/04/19 17:11:50 Pt. Name: SHEY BOSS/Sex: 1950 FEMALE Med Rec #: [id number] Physician: Daquan Antunez DO Financial #: [id number] Pt. Type: D Room/Bed: / Admit/Disch: 02/04/19 [...] Signed By: Stefanie Garibay RN 02/04/19 17:11 [facility] Preoperative Recordon 0 02-04-2019 [facility] Preoperative Record MAGR Pre-Op Record Summary Primary Physician: Daquan Antunez DO Finalized Date/Time: 02/04/19 15:37:19 Pt. Name: SHEY BOSS NORMAN /Sex: 1950 FEMALE Med Rec #: [id number] Physician: Daquan Antunez DO Financial #: [id number] Pt. Type: D Room/Bed: / Admit/Disch: 02/04/19 [...] By: Toshia Plascencia RN 02/04/19 15:37 Normal [facility] Operative Report - Surgeon/P shalini 02-04-2019 Operative [...] on: 02/04/2019 16:37 EDT] Daquan Antunez DO [facility] Patient Handouton 02-04-[address] OHARA POST OPERATIVE INSTRUCTIONS FOR FINGER SURGERY/MALLET FINGER REPAIR SURGEONS WRITTEN INSTRUTCTIONS:' -Keep your hand elevated above your elbow for the first 24 hours after surgery and apply an ice bag at intervals for the first 24 hours -Wiggle the unaffected fingers frequently while awake -DO NOT lift heavy objects or lens polisher hand forcefully with the affected hand -DO NOT [...] or concerns, please call the office at [phone] or go to the emergency room -Follow up as scheduled [facility] Progress Note - Nurseon 01-08 Progress Note - Nurse Spoke with pt regarding arrival time of 1145 and NPO status. Verbalized understanding. Pt instructed she will need a driver messenger. Verbalized understanding. [Electronically Signed on: 02/01/2019 14:53 EDT] Kika Akers RN [Verified on: 02/01/2019 14:53 EDT] Kika Akers RN [facility] Coding Summaryon 01-29-2019 Coding Summary CODING DATE: 019 [facility] STATUS: Home PAYOR: Medicare MC APC [...] Cueto Date Saved: 01/29/2019 01:42 pm Normal [facility] .Auto Diff 1on 01-28-2019 Auto Mineral % 8 % Normal 1-12 [facility] Comment on above: Performed By: #### 7 [id number], [id number] #### [facility] (DEFAULT) [address] [place] [address] Baso Abs# 0.0 x10 Normal 0.0-0.2 [facility] Comment on above: Performed By: #### 7 [id number], [id number] #### [facility] (DEFAULT) [address] [place] [address] Basophils/100 WBC (Bld) 0.4 % Normal 0.2-2.0 [facility] Comment on above: Performed By: #### 7 [id number], [id number] #### [facility] (DEFAULT) [address] [place] [address] Eos Abs# 0.2 x10 Normal 0.0-0.4 [facility] Comment on above: Performed By: #### 7 [id number], [id number] #### [facility] (DEFAULT) [address] [place] [address] Eosinophils/100 WBC (Bld) 3.5 % Normal 0.9-4.0 [facility] Comment on above: Performed By: #### 7 [id number], [id number] #### [facility] (DEFAULT) [address] [place] [address] Lymphocytes (Bld) [#/Vol] 1.6 x10 Normal 1.3-2.9 [facility] Comment on above: Performed By: #### 7 [id number], [id number] #### [facility] (DEFAULT) [address] [place] [address] Lymphocytes/100 WBC (Bld) 32 % Normal 14-48 [facility] Comment on above: Performed By: #### 7 [id number], [id number] #### [facility] (DEFAULT) [address] [place] [address] Mineral Abs# 0.4 x10 Normal 0.0-0.8 [facility] Comment on above: Performed By: #### 7 [id number], [id number] #### [facility] (DEFAULT) [address] [place] [address] Neut Abs# 2.8 x10 Normal 1.5-9.2 [facility] Comment on above: Performed By: #### 7 [id number], [id number] #### [facility] (DEFAULT) [address] [place] [address] Neutrophils/100 WBC (Bld) 56 % Normal 44-88 [facility] Comment on above: Performed By: #### 7 [id number], [id number] #### [facility] (DEFAULT) [address] [place] [address] CBC w/ Auto Diffon 9 Erythrocyte distribution width (RBC) [Ratio] 13.4 % Normal 11.5-15.0 [facility] Comment on above: Performed By: #### 7 [id number], [id number] #### [facility] (DEFAULT) [address] [place] [address] Hematocrit (Bld) [Volume fraction] 40.4 % Normal 33.7-40.4 [facility] Comment on above: Performed By: #### 7 [id number], [id number] #### [facility] (DEFAULT) [address] [place] [address] Hemoglobin (Bld) [Mass/Vol] 13.9 g/dL Normal 11.3-15.9 [facility] Comment on above: Performed By: #### 7 [id number], [id number] #### [facility] (DEFAULT) [address] [place] [address] Man Diff? Auto Normal [facility] Comment on above: Performed By: #### 7 [id number], [id number] #### [facility] (DEFAULT) [address] [place] [address] MCH (RBC) [Entitic mass] 31 pg Normal 24-34 [facility] Comment on above: Performed By: #### 7 [id number], [id number] #### [facility] (DEFAULT) [address] [place] [address] MCHC (RBC) [Mass/Vol] 34 g/dL Normal 26-37 [facility] Comment on above: Performed By: #### 7 [id number], [id number] #### [facility] (DEFAULT) [address] [place] [address] MCV (RBC) [Entitic vol] 90 fL Normal 81-100 [facility] Comment on above: Performed By: #### 7 [id number], [id number] #### [facility] (DEFAULT) [address] [place] [address] Platelet mean volume (Bld) [Entitic vol] 10.3 fL High 6.3-10.2 [facility] Comment on above: Performed By: #### 7 [id number], [id number] #### [facility] (DEFAULT) [address] [place] [address] Platelets (Bld) [#/Vol] 199 x10 Normal 138-427 [facility] Comment on above: Performed By: #### 7 [id number], [id number] #### [facility] (DEFAULT) [address] [place] [address] RBC (Bld) [#/Vol] 4.47 x10 Normal 3.70-5.30 [facility] Comment on above: Performed By: #### 7 [id number], [id number] #### [facility] (DEFAULT) [address] [place] [address] WBC (Bld) [#/Vol] 5.1 x10 Normal 3.5-10.5 [facility] Comment on above: Performed By: #### 7 [id number], [id number] #### [facility] (DEFAULT) [address] [place] [address] Vital Signs Date Time Vital Sign Value Performing Clinician Facility 04-29-2024 10:55-0400 Body height 152.4 cm Xavier Boyd MD Work Phone: [facility] 04-29-2024 10:55-0400 Body mass index (BMI) [Ratio] 42.58 kg/m2 Xavier Boyd MD Work Phone: [facility] 04-29-2024 10:55-0400 Body temperature 98.49 [degF] Xavier Boyd MD Work Phone: [facility] 04-29-2024 10:55-0400 Body weight 98.88 kg Xavier Boyd MD Work Phone: [facility] 04-29-2024 10:55-0400 Diastolic blood pressure 65 mm[Hg] Xavier Boyd MD Work Phone: [facility] 04-29-2024 10:55-0400 Heart rate 90 /min Xavier Boyd MD Work Phone: [facility] 04-29-2024 10:55-0400 Systolic blood pressure 144 mm[Hg] Xaveir Boyd MD Work Phone: [facility] 03-20-2024 13:23-0400 Diastolic blood pressure 81 mm[Hg] Wilson Sarmini [facility] 03-20-2024 13:23-0400 Heart rate 66 /min Wilson Sarmini [facility] 03-20-2024 13:23-0400 Mean blood pressure 112 mm[Hg] Wilson Sarmini [facility] 03-20-2024 13:23-0400 Respiratory rate 15 /min Wilson Sarmini [facility] 03-20-2024 13:23-0400 SaO2% (BldA) [Mass fraction] 94 % Wilson Sarmini [facility] 03-20-2024 13:23-0400 Systolic blood pressure 173 mm[Hg] Wilson Sarmini [facility] 03-20-2024 13:15-0400 Diastolic blood pressure 78 mm[Hg] Wilson Sarmini [facility] 03-20-2024 13:15-0400 Heart rate 64 /min Wilson Sarmini [facility] 03-20-2024 13:15-0400 Mean blood pressure 105 mm[Hg] Wilson Sarmini [facility] 03-20-2024 13:15-0400 Respiratory rate 13 /min Wilson Sarmini [facility] 03-20-2024 13:15-0400 SaO2% (BldA) [Mass fraction] 96 % Wilson Sarmini [facility] 03-20-2024 13:15-0400 Systolic blood pressure 159 mm[Hg] Wilson Sarmini [facility] 03-20-2024 13:05-0400 Diastolic blood pressure 76 mm[Hg] Wilson Sarmini [facility] 03-20-2024 13:05-0400 Heart rate 64 /min Wilson Sarmini [facility] 03-20-2024 13:05-0400 Mean blood pressure 99 mm[Hg] Wilson Sarmini [facility] 03-20-2024 13:05-0400 Respiratory rate 12 /min Wilson Sarmini [facility] 03-20-2024 13:05-0400 SaO2% (BldA) [Mass fraction] 96 % Wilson Sarmini [facility] 03-20-2024 13:05-0400 Systolic blood pressure 145 mm[Hg] Wilson Sarmini [facility] 03-20-2024 12:58-0400 Body temperature 97.16 [degF] Wilson Sarmini [facility] 03-20-2024 12:50-0400 Respiratory rate 15 /min Wilson Sarmini [facility] 03-20-2024 12:45-0400 Respiratory rate 18 /min Wilson Sarmini [facility] 03-20-2024 11:14-0400 Blood Pressure Location Wilson Sarmini [facility] 03-20-2024 11:14-0400 Body temperature 97.7 [degF] Wilson Sarmini [facility] 03-20-2024 11:14-0400 Respiratory rate 18 /min Wilson Sarmini [facility] 02-26-2024 09:12-0400 Blood Pressure Location Wilson Sarmini [facility] 02-26-2024 09:12-0400 Diastolic blood pressure 81 mm[Hg] Wilson Sarmini [facility] 02-26-2024 09:12-0400 Heart rate 66 /min Wilson Sarmini [facility] 02-26-2024 09:12-0400 Respiratory rate 16 /min Wilson Sarmini [facility] 02-26-2024 09:12-0400 Systolic blood pressure 131 mm[Hg] Wilson Sarmini [facility] 10-13-2023 09:42-0400 Diastolic blood pressure 80 mm[Hg] Pa NILL [facility] 10-13-2023 09:42-0400 Heart rate 69 /min Pa NILL [facility] 10-13-2023 09:42-0400 Mean blood pressure 102 mm[Hg] Pa NILL [facility] 10-13-2023 09:42-0400 Respiratory rate 15 /min Pa NILL [facility] 10-13-2023 09:42-0400 SaO2% (BldA) [Mass fraction] 97 % Pa NILL [facility] 10-13-2023 09:42-0400 Systolic blood pressure 146 mm[Hg] Pa NILL [facility] 10-13-2023 09:32-0400 Diastolic blood pressure 76 mm[Hg] Pa NILL [facility] 10-13-2023 09:32-0400 Heart rate 67 /min Pa NILL [facility] 10-13-2023 09:32-0400 Mean blood pressure 94 mm[Hg] Pa NILL [facility] 10-13-2023 09:32-0400 Respiratory rate 20 /min Pa NILL [facility] 10-13-2023 09:32-0400 SaO2% (BldA) [Mass fraction] 95 % Pa NILL [facility] 10-13-2023 09:32-0400 Systolic blood pressure 129 mm[Hg] Pa NILL [facility] 10-13-2023 09:27-0400 Diastolic blood pressure 71 mm[Hg] Pa NILL [facility] 10-13-2023 09:27-0400 Heart rate 70 /min Pa NILL [facility] 10-13-2023 09:27-0400 Mean blood pressure 92 mm[Hg] Pa PALMERL [facility] 10-13-2023 09:27-0400 Respiratory rate 15 /min Pa PALMERL [facility] 10-13-2023 09:27-0400 SaO2% (BldA) [Mass fraction] 96 % Pa PALMERL [facility] 10-13-2023 09:27-0400 Systolic blood pressure 134 mm[Hg] Pa PALMERL [facility] 10-13-2023 09:17-0400 Body temperature 97.16 [degF] Pa PALMERL [facility] 10-13-2023 09:10-0400 Respiratory rate 16 /min Pa PALMERL [facility] 10-13-2023 09:05-0400 Respiratory rate 16 /min Pa WEBB [facility] 10-13-2023 08:03-0400 Body temperature 97.34 [degF] Pa WEBB [facility] 08-11-2023 09:53-0500 Body height 160 cm Latrell Jack MD Work Phone: [facility] 08-11-2023 09:53-0500 Body mass index (BMI) [Ratio] 40.39 kg/m2 Latrell Jack MD Work Phone: [facility] 08-11-2023 09:53-0500 Body temperature 97.11 [degF] Latrell Jack MD Work Phone: [facility] 08-11-2023 09:53-0500 Body weight 103.42 kg Latrell Jack MD Work Phone: [facility] 08-11-2023 09:53-0500 Diastolic blood pressure 70 mm[Hg] Latrell Jack MD Work Phone: [facility] 08-11-2023 09:53-0500 Heart rate 94 /min Latrell Jack MD Work Phone: [facility] 08-11-2023 09:53-0500 SaO2% (BldA) [Mass fraction] 97 % Latrell Jack MD Work Phone: [facility] 08-11-2023 09:53-0500 Systolic blood pressure 140 mm[Hg] Latrell Jack MD Work Phone: [facility] Healthcare Encounters Encounter Date Encounter Type Care Provider Facility Start: 04-29-2024 End: 04-29-2024 ambulatory XAVIER BOYD Facility:[facility] Start: 04-29-2024 End: 04-29-2024 Office outpatient new 45 minutes Xavier Boyd MD Work Phone: General Surgery Comment on above: Paraesophageal herni a (Primary Dx) Start: 04-22-2024 End: 04-22-2024 Telephone encounter Ashlie Calderon MA General Surgery Start: 04-15-2024 End: 04-15-2024 ambulatory Talat Arguello MD Facility:[facility] Start: 04-11-2024 End: 04-11-2024 Patient encounter procedure Mao Morrow PhD Work Phone: [facility] Comment on above: Memory loss (Primary Dx); Word finding difficulty; EDWIN on CPAP; Other insomnia; Other chronic pain; Generalized anxiety disorder (CMS/HCC); Severe episode of recurrent major depressive disorder, 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) Start: 04-11-2024 End: 04-11-2024 ambulatory LATRELL JACK Not Available Start: 03-26-2024 End: 03-26-2024 ambulatory MAO MORROW Not Available Start: 03-26-2024 End: 03-26-2024 ambulatory Dafne Hairston Facility:[facility] Start: 03-25-2024 End: 03-25-2024 ambulatory DIOMEDES MATUTE Not Available Start: 03-20-2024 End: 03-20-2024 ambulatory Dafne Houmini Facility:[facility] Start: 03-20-2024 End: 03-20-2024 Patient encounter procedure Dafne Flowersi [facility] Start: 03-07-2024 End: 03-07-2024 ambulatory DIOMEDES MATUTE Not Available Start: 02-26-2024 End: 02-26-2024 ambulatory Dafne Houmini Facility:[facility] Start: 02-26-2024 End: 02-26-2024 Patient encounter procedure Dafne Hairston [facility] Start: 02-13-2024 ambulatory Pa NILL Facility:[facility] Start: 02-09-2024 End: 02-09-2024 ambulatory LATRELL JACK Not Available Start: 10-13-2023 End: 10-13-2023 ambulatory Pa R NILL Facility:[facility] Start: 10-13-2023 End: 10-13-2023 Patient encounter procedure Pa R NILL [facility] Start: 09-12-2023 End: 09-12-2023 ambulatory Pa R NILL Facility: [facility] Start: 09-05-2023 ambulatory Pa NILL Facility:[facility] Start: 08-11-2023 Bamboo flowsheet Latrell Jack MD Work Phone: [facility] Start: 08-11-2023 Bambopaco flowsheet Latrell Jack MD Work Phone: [facility] [...] 09-09-2021 Encounter for prepro cedural laboratory examination [facility] Start: 09-07-2021 End: 09-07-[address] LATRELL JACK Facility:[facility] Start: 09-07-2021 End: 09-07-2021 Encounter for preprocedural laboratory examination DR LATRELL JACK Facility:[facility] Start: 09-03-2021 Encounter for prepro cedural cardiovascular examination [facility] Alfredo [facility] Start: 09-02-2021 End: 09-03-[address] LATRELL JACK Facility:[facility] Start: 09-02-2021 End: 09-03-2021 Encounter for preprocedural cardiovascular examination DR LATRELL JACK Facility:[facility] Procedures Date Procedure Procedure Detail Performing Clinician Start: 03-20-2024 Esophagogastroduodenoscopy Dafne george Start: 11-28-2023 Mammography Mao Morrow PhD Work Phone: Start: 10-13-2023 Colonoscopy Mao Morrow PhD Work Phone: Start: 10-13-2023 Colonoscopy Pa WEBB Hand tendon repaired Pa WEBB Open reduction of fr acture of ankle with internal fixation Pa WEBB Repair of meniscus Pa MORALES Tonsillectomy Pa WEBB Plan of Treatment Date Care Activity Detail Author Start: 10-12-2033 Screening for malign ant neoplasm of colon [facility] Start: 09-21-2026 RSV Vaccine (1 - 1-d ose 75+ series) RSV Vaccine (1 - 1-dose 75+ series) [facility] Start: 11-27-2024 Screening for malign ant neoplasm of breast Mammogram [facility] Start: 05-30-2024 End: 05-30-2024 Patient encounter procedure 05/30/2024 3:40 PM EST Office Visit [facility] [address] [address] Sandra Arcos NP [address] [facility] [address] [place] [address] [facility] Start: 05-15-2024 End: 05-15-2024 Patient encounter procedure 05/15/2024 10:00 AM EST Office Visit [facility] [address] [place] [address] Latrell Jack MD [address] [place] [address] [facility] Start: 04-29-2024 End: 04-29-2024 Patient encounter procedure 04/29/2024 11:00 AM EDT Office Visit General Surgery [address] [address] Xavier Boyd MD [address] [place] [address] Hiatal Hernia General Surgery Comment on above: Hiatal Hernia Start: 03-10-2024 Covid-19 Vaccine ( season) Covid-19 Vaccine () [facility] Start: 03-10-2024 Covid-19 Vaccine ( season) Covid-19 Vaccine () [facility] Start: 03-10-2024 Influenza vaccination Influenza Vacc ine (#1) [facility] Start: 02-09-2024 End: 02-09-2024 Patient encounter procedure 02/09/2024 9:45 AM EDT Office Visit [facility] [address] [place] [phone] Latrell Jack MD [address] [place] [phone] [facility] Start: 08-11-2023 End: 08-11-2024 Basic metabolic 1998 panel - Serum or Plasma Basic metabolic panel Lab Routine Encounter for long-term (current) use of medications Expected: 08/11/2023 (Approximate), Expires: 08/11/2024 [facility] Comment on above: Expected: 08/11/2023 (Approximate), Expires: 08/11/2024 Start: 08-11-2023 End: 08-11-2024 CBC W Auto Differential panel - Blood CBC and differential Lab Routine Encounter for long-term (current) use of medications Expected: 08/11/2023 (Approximate), Expires: 08/11/2024 [facility] Comment on above: Expected: 08/11/2023 (Approximate), Expires: 08/11/2024 Start: 08-11-2023 End: 08-11-2024 Hemoglobin A1c measurement Hemoglobin A1c Lab Routine Morbid obesity due to excess calories (CMS/HCC) Expected: 08/11/2023 (Approximate), Expires: 08/11/2024 [facility] Work Phone: Comment on above: Expected: 08/11/2023 (Approximate), Expires: 08/11/2024 Start: 08-11-2023 End: 08-11-2024 Hepatic function 2000 panel - Serum or Plasma Hepatic function panel Lab Routine Encounter for long-term (current) use of medications Expected: 08/11/2023 (Approximate), Expires: 08/11/2024 [facility] Comment on above: Expected: 08/11/2023 (Approximate), Expires: 08/11/2024 Start: 08-11-2023 End: 08-11-2024 Lipid 1996 panel - Serum or Plasma Lipid panel Lab Routine Dyslipidemia ([facility]/HCC) Expected: 08/11/2023 (Approximate), Expires: 08/11/2024 [facility] Comment on above: Expected: 08/11/2023 (Approximate), Expires: 08/11/2024 Start: 08-11-2023 End: 08-11-2024 Thyrotropin [Units/volume] in Serum or Plasma TSH Lab Routine Morbid obesity due to excess calories ([facility]/HCC) Expected: 08/11/2023 (Approximate), Expires: 08/11/2024 [facility] Comment on above: Expected: 08/11/2023 (Approximate), Expires: 08/11/2024 Start: 08-11-2023 End: 08-11-2023 Patient encounter procedure 08/11/2023 9:45 AM EST Office Visit [facility] [address] [place] [address] Latrell Jack MD [address] [place] [phone] Arrived [facility] Comment on above: Arrived Start: 07-10-2023 Advance Directive Discussion Advance Directive Discussion [facility] Start: 03-10-2023 Influenza vaccination Influenza Vacc ine (#1) [facility] Start: 09-21-2016 Screening for osteoporosis Bone Density Screening [facility] Start: 09-21-2001 Shingrix Vaccine (1 of 2) Shingrix Vaccine (1 of 2) [facility] Start: 09-21-1996 Diabetes Screening Diabetes Screenin g [facility] Start: 09-21-1996 Lipid panel Lipid Screening [facility] Start: 09-21-1996 Screening for malign ant neoplasm of colon [facility] Start: 1991 Screening for malign ant neoplasm of breast [facility] Start: 09-21-1970 Urine microalbumin profile DTaP,Tdap,Td Vaccine (1 - Tdap) [facility] Start: 09-21-1969 Anxiety Screening Anxiety Screening [facility] Start: 09-21-1969 Depression Screening Depression Scre ening [facility] Start: 09-21-1969 Hepatitis C screening Hepatitis C Sc reening [facility] Start: 1950 Screening for malign ant neoplasm of colon [facility] Immunizations Immunization Date Immunization Notes Care Provider Fa cility 04-09-2023 influenza virus vacc ine, unspecified formulation Pa WEBB [facility] 05-03-2022 SARS-CoV-2 (COVID-19 ) [id number] Pa WEBB [facility] 05-03-2022 influenza virus vacc ine, unspecified formulation Latrell Jack MD Work Phone: [facility] 11-25-2021 pneumococcal conjuga te vaccine, 13 valent Mao Morrow PhD Work Phone: [facility] 04-12-2021 influenza virus vacc ine, unspecified formulation Dafne Hairston [facility] 04-12-2021 SARS-CoV-2 (COVID-19 ) mRNA BNT-162b2 vax Pa WEBB [facility] Comment on above: Result Comment: 2023: [id number] 09-14-2020 SARS-CoV-2 (COVID-19 ) mRNA BNT-162b2 vax Pa WEBB [facility] Comment on above: Result Comment: 2023: [id number] 08-27-2020 SARS-CoV-2 (COVID-19 ) mRNA BNT-162b2 vax Pa WEBB [facility] General Surgery [place] Comment on above: Result Comment: 2023: [id number] 06-16-2020 influenza virus vacc ine, unspecified formulation Wilson Sar[facility] 05-16-2019 influenza virus vacc ine, unspecified formulation Wilson Sar[facility] 05-16-2019 pneumococcal polysaccharide vaccine, 23 valent Wilson [facility] 05-12-2018 influenza virus vacc ine, unspecified formulation Wilson Sar[facility] 01-31-2018 pneumococcal conjuga te vaccine, 13 valent Wilson Sar[facility] 05-10-2016 influenza virus vacc ine, unspecified formulation Wilson Sarmini [facility] 04-16-2015 influenza virus vacc ine, unspecified formulation Wilson [facility] Payers Date Payer Category Payer Private Health Insurance [id number] 2016 Medicare [id number] 2016 Unknown 1959 Medicare [id number] 1959 Private Health Insurance [id number] 1950 Unknown [id number] 2.16.84 0.1.270025.3.579.2.593 1950 Unknown [id number] 2.16.84 0.1.166885.3.579.2.593 1950 Unknown [id number] 2.16.84 0.1.509812.3.579.2.593 1950 Unknown [id number] 2.16.84 0.1.252176.3.579.2.593 1950 Unknown [id number] 2.16.84 0.1.202088.3.579.2.593 1950 Unknown [id number] 2.16.84 0.1.062976.3.579.2.593 1950 Unknown [id number] 2.16.84 0.1.466060.3.579.2.593 1950 Unknown [id number] 2.16.8 40.1.208445.3.579.2.727 1950 Unknown [id number] 2.16.8 40.1.505420.3.579.2.727 1950 Unknown [id number] 2.16.8 40.1.238172.3.579.2.727 1950 Unknown [id number] 2.16.8 40.1.660975.3.579.2.727 1950 Unknown [id number] 2.16.8 40.1.531863.3.579.2.727 1950 Unknown [id number] 2.16.84 0.1.014144.3.579.2.1259 1951 Unknown [id number] 2.16.84 0.1.706322.3.579.2.1259 1950 Unknown [id number] 2.16.84 0.1.956655.3.579.2.1259 1951 Unknown [id number] 2.16.84 0.1.994996.3.579.2.1259 1951 Unknown [id number] 2.16.84 0.1.476598.3.579.2.1259 1950 Unknown [id number] 2.16.84 0.1.679935.3.579.2.1259 1950 Unknown [id number] 2.16. 840.1.687710.3.579.2.196 Social History Date Type Detail Facility Start: 08-05-2023 End: 03-07-2024 Tobacco smoking status NHIS Ex-smoker [facility] Start: 07-10-1967 End: 01-08-2012 History of tobacco use Current smoker [facility] Start: 07-10-1967 End: 01-08-2012 History of tobacco use Cigarette Smoker [facility] Start: 08-05-2023 End: 04-29-2024 Cigarettes smoked current (pack per day) - Reported 1 [facility] Start: 08-05-2023 End: 04-29-[address] [facility] Start: 1950 Sex Assigned At Not on file [facility] Start: 08-11-2023 End: 03-07-2024 Tobacco use and exposure Smokeless tobacco non-user [facility] Tobacco smoking status Never [facility] General Surgery [place] Start: 03-07-2024 Alcoholic beverage intake Current drinker [...] per day [facility] Start: 04-23-2024 Gender identity Identifies as female gender (finding) [facility] Functional Status Date Assessment Result Facility 03-20-2024 Functional Status N/A [place] [id number] Functional Status N/A [facility] 10-13-2023 Functional Status N/A [facility] Clinical Notes 09-10-2021 to 04-29-2024 Xavier Boyd MD - 04/29/2024 12:08 PM Yan Bethea - 04/29/2024 11:16 AM Diomedes Sawant MA - 04/29/2024 10:50 AM Diomedes Sawant MA - 04/29/2024 10:50 AM EDTRadiology Note Date & Type Note Facility 04-29-2024 Note HNO ID: [id number] Author: XAVIER BOYD MD Service: ? Author Type: Physician Type: Progress Notes Filed: 04/29/2024 12:10 Note Text: Consultation requested by Dr. Latrell Jack for [...] assessment and plan as documented in the resident?s note including a ROS that was reviewed and negative other than what was indicated in our notes. Patient consented for study? Yes STUDY TITLE: MVP Trial: Mesh Vs Pledgets for repair of paraesophageal hernia repair: a randomized, blinded, parallel group trial IRB NO.: #[id number] SAFETY INSTRUCTOR: Pa Prakash MD COORDINATOR/Research Nurse/Digital Production Artist: Abdelrahman He MD Phone/email: [phone], Consenting was performed in person prior to [...] CRITERIA Yes No 1. The patient lacks Sudanese language fluency or cannot understand the consent form/study procedures [] [x] 2. The patient is [] [x] 3. The patient has a BMI >45 [] [x] 4. The patient has undergone previous hiatal hernia repair [] [x] 5. The patient will undergo paraesophageal hernia repair with a concurrent bariatric procedure to reduce stomach volume [] [x] [facility] 04-29-2024 History of Present illness Narrative Consultation [...] Patient consented for study? Yes STUDY TITLE: MV Trial: Mesh Vs Pledgets for repair of paraesophageal hernia repair: a randomized, blinded, parallel group trial IRB NO.: #[id number] SAFETY INSTRUCTOR: Pa Prakash MD COORDINATOR/Research Nurse/Digital Production Artist: Abdelrahman He MD Phone/email: [phone], [email or web address] Consenting was performed in person prior to [...] CRITERIA Yes No 1. The patient lacks Sudanese language fluency or cannot understand the consent form/study procedures [] [x] 2. The patient is [] [x] 3. The patient has a BMI >45 [] [x] 4. The patient has undergone previous hiatal hernia repair [] [x] 5. The patient will undergo paraesophageal hernia repair with a concurrent bariatric procedure to reduce stomach volume [] [x] [facility] - HISTORY AND PHYSICAL [...] our MVP Trial. - Consents obtained Yan Moser MD General Surgery documented in this encounter [facility] 04-29-2024 Note HNO ID: [id number] Author: YAN MOSER, ? Service: ? Author Type: Physician Type: Progress Notes Filed: 04/29/2024 12:10 Note Text: [facility] - HISTORY [...] (1.52m) Wt 218 lb (98.9kg) BMI 42.58 kg/(m2). GENERAL: awake, alert and oriented, no acute [...] our MVP Trial. - Consents obtained Yan Moser MD General Surgery [facility] 04-29-2024 Nurse Note What is the reason for your visit today? Consult Who is your referring physician? Dafne Hairston Are you having poor oral intake? YES Have you had unintentional weight loss of 15 lbs/7 Kg in the last 3-6 months? NO Bowels: soft, more frequent Wound: none Temperature: No Drains: No [facility] 04-29-2024 Nurse Note What is the reason for your visit today? Consult Who is your referring physician? Dafne Hairston Are you having poor oral intake? YES Have you had unintentional weight loss of 15 lbs/7 Kg in the last 3-6 months? NO Bowels: soft, more frequent Wound: none Temperature: No Drains: No documented in this encounter [facility] 04-22-2024 Telephone encounter Note Spoke with PT she state no prior surgeries [facility] 04-22-2024 Miscellaneous Notes Spoke with PT she state no prior surgeries documented in this encounter [facility] 04-11-2024 History of Present illness Narrative Images [...] No history of alcohol/substance abuse. Reformed smoker. [place] language Sudanese. Completed high school education as well as some college. Described self as a C student. 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 Motor/Speed of Processing: Left-handed. 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 Recognition discriminability 69th [...] Please contact me with any questions at [phone]. documented in this encounter [facility] 03-27-2024 Note Endoscopic Procedure Report - Other Patient: SHEY BOSS Age: 73 years Sex: Female : 1950 Associated Diagnoses: None Author: Dafne Hairston MD Preoperative Information Indication for procedure [...] 1 tab, Oral, Daily Flonase 0.05 mg/inh [place]: 2 spray(s), Nasal, Daily, Refill(s) 0, Dry [...] a day (at bedtime) Flonase 0.05 mg/inh [place] 2 spray(s), Nasal, Daily losartan 25 mg [...] All Problems HTN (hypertension) / SNOMED CT 9187372507 / Confirmed Chronic obstructive pulmonary disease / SNOMED CT 86642518 / Confirmed Insomnia / SNOMED CT 105989431 / Confirmed Seasonal allergic rhinitis / SNOMED CT 982173881 / Confirmed Dyslipidemia / SNOMED CT 8352641747 / Confirmed BMI 39.0-39.9,adult / SNOMED CT 285922387 / Confirmed Morbid obesity / SNOMED CT 971808910 / Confirmed GERD (gastroesophageal reflux disease) / SNOMED CT 426602485 / Confirmed Hiatal hernia / SNOMED CT 984687103 / Confirmed EDWIN (obstructive sleep apnea) / SNOMED CT 626542284 / Confirmed Lower extremity edema / SNOMED CT 014671634 / Confirmed TIA (transient ischemic attack) / SNOMED CT 297142253 / Confirmed Screening for malignant neoplasm of colon / SNOMED CT 793831606 / Confirmed Dysphagia / SNOMED CT 97034147 / Confirmed Histories Past Medical History: Resolved Hernia (624674486): Resolved. Sleep apnea (073310044): Resolved. Family History: Father Alcoholism Primary malignant neoplasm of lung COPD Mother Cardiac arrest Alzheimer's disease Procedure history: Colonoscopy (410321069) on 10/13/2023 at 73 Years. ORIF - Open reduction of fracture of ankle with internal fixation (792349048621965). Meniscal repair (314805698). Tonsillectomy (317218538). Hand tendon repaired (097645372). Social History Social & Psychosocial Habits Alcohol [...] 20:14) Heart Rate Monitored 72 bpm (MAR 20:14) SBP H 173 mmHg (MAR 20:14) DBP 72 mmHg (MAR 20:14) Weight 100 kg (MAR 20:14) General: in Nad Abdomen: Soft, NTND Impression and Plan Impression: DYSPHAGIA Plan: -EGD [facility] Comment on above: Result Comment: wron g folder Electronically Signed By: Tory OLIVO, Dafne Torres\.br\Date and Time Signed: 03/20/24 12:47 EDT [...] Follow these instructions at home: Medicines Take hbhu-guq-zzwmjxf and prescription medicines only as told by [...] or drinks. ?Garlic or onions. ?Spicy foods. ?[place] fruits. ?Tomato-based foods. ?Fatty or fried foods. [...] provider. Document Revised: 01/09/2023 Document Reviewed: 01/09/2023 [employer] Patient Education 2023 [employer]. 03/20/2024 13:07:56 Gastritis, Adult, Hksh-tx-Sevn Gastritis, Adult Gastritis is irritation and swelling [...] Follow these instructions at home: Medicines Take itxb-rzk-jqjmozi and prescription medicines only as told by [...] provider. Document Revised: 10/30/2021 Document Reviewed: 10/30/2021 [employer] Patient Education 2023 [employer]. 03/20/2024 13:07:48 Hiatal Hernia Hiatal Hernia A [...] reduce GERD symptoms. Medicines. These may include: ?Lybp-zeh-etgtdeb antacids. ?Medicines that make your stomach empty [...] may include: ?Fatty foods, like fried foods. ?[place] fruits, like oranges or lemon. ?Other foods [...] Do not drink alcohol. General instructions Take yqwx-efg-pxhuqse and prescription medicines only as told by [...] provider. Document Revised: 08/23/2022 Document Reviewed: 08/23/2022 [employer] Patient Education 2023 [employer]. 03/20/2024 13:07:46 Endoscopy, Care After Procedure [facility] Endoscopy Care After Procedure Please read [...] Document Re-Released: 12/18/2006 ExitCare Patient Information 2009 [employer]. Follow Up Care 02/26/2024 09:52:05 With:Tory OLIVO, SENAIT Sifuentes, [facility] Address: When: Unknown Comments:Call for any problems. Office will call to schedule follow up appointment [facility] 03-20-2024 Evaluation + Plan note Future Scheduled TestsXR Esophagus 03/20/24 [facility] 03-20-2024 Note Patient Education - Text [...] Document Re-Released: 12/18/2006 ExitCare? Patient Information ?2009 [employer]. Gastroenterology Hiatal Hernia A hiatal hernia occurs [...] symptoms. ? Medicines. These may include: ? Safi-ktn-bmzmoue antacids. ? Medicines that make your stomach [...] Avoid putting pressu (more content not included)... [facility] 03-20-2024 Note Endoscopic Procedure Report - Other Patient: SHEY BOSS Age: 73 years Sex: Female : 1950 Associated Diagnoses: None Author: Dafne Hairston MD Pre-Procedure Procedure Date 03/20/2024 12:54:00 . Procedure Type: Esophagogastroduodenoscopy with biopsy. Procedure provider Performed by Dafne Hairston MD. Current history and physical Documented [...] otherwise normal examined duodenum Images Procedure images: Rec1_hd_video_2023____49_155. jpg Rec1_hd_video_2023____35_581. jpg Rec1_hd_video_2023____25_745. jpg Rec1_hd_video_2023____15_326. jpg Rec1_hd_video___00_14_[id number]. jpg Rec1_hd_video_2023____01_833. jpg . Post-Procedure Complications: none. [...] surgery referral is indicated, will be ordered [facility] Comment on above: Result Comment: Elec tronically Signed By: Tory OLIVO, Dafne Torres\.br\Date and Time Signed: 03/20/24 12:58 EDT Other Comment: Samreen dueñas Attachment - attachment storage system not supported [id number] Can be viewed in source systemMissFlatout Technologies Attachment - attachment storage system not supported [id number] Can be viewed in source systemMissing Attachment - attachment storage system not supported [id number] Can be viewed in source systemMissFlatout Technologies Attachment - attachment storage system not supported [id number] Can be viewed in source systemMissFlatout Technologies Attachment - attachment storage system not supported [id number] Can be viewed in source systemMissFlatout Technologies Attachment - attachment storage system not supported 3414138 Can be viewed in source system 03-20-2024 Note Endoscopic Procedure Report - Other Patient: SHEY BOSS Age: 73 years Sex: Female : 1950 Associated Diagnoses: None Author: Tory OLIVO, Dafne Torres Preoperative Information Indication for procedure and [...] 1 tab, Oral, Daily Flonase 0.05 mg/inh [place]: 2 spray(s), Nasal, Daily, Refill(s) 0, Dry [...] a day (at bedtime) Flonase 0.05 mg/inh [place] 2 spray(s), Nasal, Daily losartan 25 mg [...] All Problems HTN (hypertension) / SNOMED CT 4418047218 / Confirmed Chronic obstructive pulmonary disease / SNOMED CT 32143868 / Confirmed Insomnia / SNOMED CT 258733099 / Confirmed Seasonal allergic rhinitis / SNOMED CT 183038935 / Confirmed Dyslipidemia / SNOMED CT 5354562811 / Confirmed BMI 39.0-39.9,adult / SNOMED CT 411403512 / Confirmed Morbid obesity / SNOMED CT 765563764 / Confirmed GERD (gastroesophageal reflux disease) / SNOMED CT 819116690 / Confirmed Hiatal hernia / SNOMED CT 314385224 / Confirmed EDWIN (obstructive sleep apnea) / SNOMED CT 848831586 / Confirmed Lower extremity edema / SNOMED CT 073432182 / Confirmed TIA (transient ischemic attack) / SNOMED CT 348733806 / Confirmed Screening for malignant neoplasm of colon / SNOMED CT 965485966 / Confirmed Dysphagia / SNOMED CT 68643436 / Confirmed Histories Past Medical History: Resolved Hernia (827620395): Resolved. Sleep apnea (635599962): Resolved. Family History: Father Alcoholism Primary malignant neoplasm of lung COPD Mother Cardiac arrest Alzheimer's disease Procedure history: Colonoscopy (073724525) on 10/13/2023 at 73 Years. ORIF - Open reduction of fracture of ankle with internal fixation (873795402491664). Meniscal repair (819575328). Tonsillectomy (961724143). Hand tendon repaired (612242129). Social History Social & Psychosocial Habits Alcohol [...] mmHg (MAR 20:14) Weight 100 kg (MAR 20:14) General: in Nad Abdomen: Soft, NTND Impression and Plan Impression: DYSPHAGIA Plan: -EGD [facility] Comment on above: Result Comment: Elec tronically Signed By: Tory OLIVO, Dafne Torres\.br\Date and Time Signed: 03/20/24 12:47 EDT 10-16-2023 Note [id number] [facility] 10-13-2023 Evaluation + Plan note Extrac clarke from: Title:ANES Post-operative Note - General Author: Shaji Bethea Jr., DO Date:10/13/23 Plan Transfer/Discharge: Transfer/Discharge Discharge when meets criteria ( From PACU to Ambulatory Surgery Unit, and To home ). Extracted from: Title:ANES Pre-operative Note - Endo Author:Shaji Mendoza Jr., DO Date:10/13/23 Plan [place] [employer]esthesi[employer] (ASA) physical status classification: Class III. Anesthetic Preoperative Plan: Anesthesia General, and -TIVA. [facility]04-05-2024 Hospital Discharge instructions Patient Education 10/13/2023 09:31:42 Colonoscopy, Care After Surgery Millie (CUSTOM) Colonoscopy Care After Surgery Please read the instructions outlined below and refer to this sheet in the next few weeks. These discharge instructions provide you with general information on [facility] Your doctor may also give [...] Up Care 09/12/2023 10:17:58 With:Pa WEBB Address: [address] [address], [facility] [address] [phone] Business (1) When: only if needed [facility]04-05-2024 NotePatient: SHEY BOSS Age: 73 years Sex: Female : 1950 Associated Diagnoses: None Author: Pa WEBB MD Subjective no changes to H & [facility]Ohio [facility] CenterComment on above:Result Comment: Electronically Signed By: Pa WEBB MD\.br\Date and Time Signed: 10/13/23 09:45 [id number] NoteChief Complaint consultation for colonoscopy HPI Staff [...] a day (at bedtime) Flonase 0.05 mg/inh [place], 2 spray(s), Nasal, Daily losartan 25 mg [...] Alcoholism: Father. Alzheimer's di (more content not included)...[facility] Comment: Electronically Signed By: TRACEY OLIVO, Pa Lynn\Date and Time Signed: 09/12/23 10:16 [id number] History of Present illness Narrative* Latrell Jack [...] ESTAssociated Problem(s): COPD (chronic obstructive pulmonary disease) ([facility]) Symptoms stable and continue spiriva. Use albuterol [...] referral to General Surgery [facility] [id number] NoteEXAMINATION: XR CHEST 1 V HISTORY: SHORTNESS [...] Electronically authenticated by: MEHNAZ SANTIAGO Date: 2021-11-02 16:39[facility]03-04-2022 NotePROCEDURE: XR ANKLE RT MIN 3 [...] Electronically authenticated by: WILLARD ANAND Date: 2021-09-10 09:02[facility]03-04-2022 NotePROCEDURE: XR ANKLE RT 2V COMPARISON: 03/02/2020. HISTORY: Pain FINDINGS: 35 seconds of fluoroscopy. 5 fluoroscopic images Interval removal of internal fixation hardware. Components of 2 fractured screws across the tibiofibular syndesmosis remain on image #5 IMPRESSION: Removal of lateral fibular plate and screws Electronically authenticated by: WILLARD ANAND Date: 2021-09-10 08:30[facility] Future Appointments Appointment Date:03/20/2024 12:15:00 PM Scheduled Provider: Location:[facility] Appointment Type:Surgery [facility] Dig[facility]ive [facility] Evaluation note* Diagnosis [...] adult (Z68.41) [facility] Diagnosis Memory loss- Primary Word finding difficulty EDWIN on CPAP Other insomnia Other chronic pain Generalized anxiety disorder (CMS/HCC) Generalized anxiety disorder Severe episode of recurrent major depressive disorder, 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) [facility]* Diagnosis Paraesophageal hernia- Primary Diaphragmatic hernia without mention of obstruction or gangrene [facility] No data available for this section [facility] No data available for this section [facility] Progress note No data available for this section [facility])* Consultation (Routine) - Pending Review Specialty Diagnoses / Procedures Referred By Contioana t Referred To Contact General Surgery Diagnoses Screening for colon cancer Procedures [place] OFFICE/OUTPATIENT NEW HIGH MDM 60 MINUTES Latrell Jack MD [address] [place] [address] Pa Webb MD [address] [place] [address] Referral ID Status Reason Start Date Expiration Date Visits Requested Visits Authorized [id number] Pending Review Specialty Services Required 08/11/2023 02/07/2024 1 1 [facility] Healthcare Summary Purpose Family History No Family [...] Advanced Directives Records Found Hospital Course Note [facility] SURGERY Clinical Discharge Summary PERSON INFORMATION Name SHEY BOSS Age 68 Years 52 Sex FEMALE Language Sudanese PCP LATRELL JACK Marital Status Single Med Service Ambulatory Surgery Acct# Arrival 02/04/19 11:44:00 Visit Reason SURGERY - RELEASE TRIGGER FINGER LEFT RING FINGER AND E/O CYST LEFT RING FINGER Acuity LOS 012 05:38 Address: [address] [place] [id number] Comment: PROVIDER INFORMATION VITALS INFORMATION Vital Sign [...] section and content) DATE CREATED AUTHOR 02/17/2019 [facility] DATE CREATED AUTHOR AUTHOR'S ORGANIZ ATION 08/03/2022 [facility] DATE CREATED AUTHOR AUTHOR'S ORGANIZ ATION 03/28/2024 [place] [facility] DATE CREATED AUTHOR AUTHOR'S ORGANIZ ATION 03/30/2024 [place] [facility] DATE CREATED AUTHOR AUTHOR'S ORGANIZ ATION 04/04/2024 [facility] DATE CREATED AUTHOR AUTHOR'S ORGANIZ ATION 04/13/2024 [facility] DATE CREATED AUTHOR AUTHOR'S ORGANIZ ATION 04/28/2024 [facility] DATE CREATED AUTHOR AUTHOR'S ORGANIZ ATION 04/30/2024 [facility] Care Teams (unrecognized sec tion and content) Scientific Affairs Manager Relationship Specialty Start Date End Date Latrell Jack MD [address] [place] [phone] PCP - General Family Medicine 08/05/23 Scientific Affairs Manager Relationship Specialty Start Date End Date Latrell Jack MD [address] [place] [phone] PCP - General Family Medicine 08/05/23 Scientific Affairs Manager Relationship Specialty Start Date End Date Latrell Jack MD [address] [place] [address] PCP - General Family Medicine 08/05/23 Scientific Affairs Manager Relationship Specialty Start Date End Date Dafne Hairston MD [address] [facility] [address] [address] Internal Medicine 04/02/24 Scientific Affairs Manager Relationship Specialty Start Date End Date Dafne Hairston MD [address] [facility] [address] [address] Internal Medicine 04/02/24 Reason for Visit (unrecogniz [...] or prosecute any alcohol or drug abuse patient.[facility] the event this information is protected by the Federal Confidentiality of Alcohol and Drug Abuse Patient Records regulations: The Federal rules restrict any use of the information to criminally investigate or prosecute any alcohol or drug abuse patient.[facility] FOR RECORDS PERTAINING TO PATIENTS WHO ARE [...] BE BASED ON THE PRIMARY CLINICAL RECORDS. [facility] Analy[employer] [facility]. provides no warranty or guarantee of the accuracy or completeness of information in this document.
[2024-05-06 08:36] VITALS: BP 146/89; PULSE 73; TEMP 36.1; O2SAT 98
[2024-05-06 09:20] VITALS: BP 170/82; BP 182/81; PULSE 63; PULSE 64; O2SAT 96; O2SAT 97
--- NOTE | 2024-05-06 09:21 | P.ON_ITS ---
Date of procedure: 05/06/24 Pre-op diagnosis: Pain due to lumbar stenosis with neurogenic claudication Post-op diagnosis: same as pre-op Procedure: Procedure: Right L4-5, L5-S1 transforaminal epidural steroid injection Medications: Bupivacaine 0.25% 2cc, lidocaine 2% 1cc, kenalog 80mg The patient was seen and examined in the preoperative holding area.? Informed consent was obtained and placed on the chart.? Patient was brought to the medical procedure unit and placed in the prone position where a timeout was completed verifying the correct patient, procedure site, position, and planned special equipment using sterile aseptic technique.? Under direct fluoroscopic visualization a 25-gauge Quincke tipped spinal needle was advanced to the designated neural foramen where contrast dye was injected to show adequate spread.? The needle was inserted at level right L4-5. There was no evidence of vascular or adverse uptake.? Epidural spread was appreciated.? The above- mentioned injectate was then placed in a 1.5 mL aliquot preceded by negative aspiration.? The needle was removed. The needle was inserted and the procedure repeated at level right L5-S1.? The surgery site was covered.? Patient was taken to the postprocedural recovery area and monitored for an appropriate length of time before found suitable for discharge in the accompaniment of a responsible adult. Anesthesia: Local Surgeon: Talat Arguello Pathology: none sent Condition: stable Disposition: no change
[2024-05-06] MEDS: 0.9 % SODIUM CHLORIDE 10 ML SYRINGE - SALINE FLUSH INJ (09:22)
[2024-05-06] MEDS: LIDOCAINE HCL 2% 400 MG/20 ML MDV INJ (09:23)
[2024-05-06] MEDS: TRIAMCINOLONE ACETONIDE 40 MG/ML VIAL 80 MG INJ (09:23)
[2024-05-06] MEDS: IOHEXOL 240 MG/ML - 10 ML VIAL 24 MG INJ (09:23)
[2024-05-06] MEDS: BUPIVACAINE HCL 0.25% PF 25 MG/10 ML VIAL INJ (09:23)
== END 2024-05-06 09:26 | disposition home or self-care (01) ==
LOC: SURGOUT 07:58
PROVIDERS: PCP Family Medicine; Visit Provider Anesthesiology
DX: M48.062 Spinal stenosis, lumbar region with neurogenic claudication (principal)
CPT/HCPCS: 64483; 64484; J0665; J3301; Q9966

== ENCOUNTER 2024-05-16 11:02 | Outpatient (OUT) | payer MEDICARE, OTHER, SELFPAY ==
--- OUTSIDE RECORDS SUMMARY | 2024-05-16 11:23 | XMS_ITS | CCD ---
Author Organization [facility] CliniSynh Care Team Providers Care Sulfur Burner Name Role Phone FREDY, DR CHAPARRO Attending [...] Care Provider GUERO, LATRELL Primary Care Physician [phone] Pa WEBB Referring Unavailable NILL, Pa Vivas Attending Unavailable Pa WEBB Admitting Unavailable Katie Hairston Referring Unavaila ble Katie Hairston Attending Unavaila ble Sarmini, Leos Talal Admitting Unavaila ble Sarmini, Leos Talal Referring Unavaila ble Sarmini, Leos Talal Attending Unavaila ble Sarmini, Leos Talal Admitting Unavaila ble Sarmini, Leos Talal Attending Unavaila ble Pa WEBB Attending Unavailable GUERO, LATRELL Referring Unavailable GUERO, LATRELL Attending Unavailable GUERO, LATRELL Attending Unavailable DIOMEDES MATUTE Attending Unavailable GUERO, LATRELL Referring Unavailable JUJU, DIOMEDES Referring Unavailable MAO MORROW Attending Unavailable Tory OLIVO, Leos Talal Unavailable [phone] XAVIER BOYD Attending Unava ilable TORY, LEOS TALAL Referring Unavaila ble Saundra OLIVO, Talat Benedict Attending Unavailable Saundra OLIVO, Talat Benedict Attending Unavailable Allergies Allergy Classification Reported Allergen(s) Allergy Type Date of Onset Reaction(s) Facility (1 source) Amino Acids Drug Allergy [facility] Repository Medications Current Medications Medication Drug Class(es) Dates Sig (Normalized) Sig (Original) aspirin 81 mg oral tablet (10 sources) Platelet Aggregation Inhibitor, Nonsteroidal Anti-inflammatory Drug Start: 03-05-2021 aspirin 81 mg cap Take 81 mg by mouth. 03/05/2021 Active Start: 03-05-2021 take 1 tablet by jennifer th once daily aspirin 81 mg Oral EC Tab 81 mg = 1 tab(s), Oral, Daily, Refills(s) 0, Prophylaxis Start Date: 03/05/21 Status: Ordered atorvastatin 40 mg oral tablet (10 sources) HMG-CoA Reductase Inhibitor Start: 03-12-2021 atorvastatin (LIPITOR) 40 mg tablet Take 40 mg by mouth. 03/12/2021 Active Calcium (2 sources) Phosphate Binder, Calcium Start: 02-26-2024 take 1 tablet by mouth once daily Calcium Calcium, 1 tab, Oral, Daily Start Date: 02/26/24 Status: Ordered Start: 02-26-2024 Calcium Calciu m Start Date: 02/26/24 Status: Ordered calcium carbonate 1500 mg or al tablet (7 sources) calcium carbonat e (CALTRATE) 600 mg calcium (1,500 mg) tab Take 1 tablet by mouth. Active cholecalciferol 0.025 mg ora l capsule (7 sources) Vitamin D Cholecalciferol, Vitamin D3, 25 mcg (1,000 unit) cap Take 1 capsule by mouth. Active take 1 capsule by mouth once anna ly cholecalciferol (Vitamin D-3) 25 MCG (1000 UT) capsule Take 1 capsule by mouth 1 (one) time each day at the same time Active donepezil hydrochloride 5 mg oral tablet (6 sources) Start: 02-23-2024 take 1 tablet by mouth at bedtime donepezil (Aricept) 5 MG tablet Indications: 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CMS/HCC) TAKE 1 TABLET BY MOUTH AT BEDTIME 90 tablet 1 03/04/2024 Active famotidine 40 mg oral tablet (10 sources) Histamine-2 Receptor Antagonist Start: 11-08-2020 famotidine (PEPCID) 40 mg tablet Take 1 tablet by mouth. 11/08/2020 Active fluticasone propionate 0.05 mg/actuat metered dose nasal spray (10 sources) Corticosteroid Start: 03-26-2024 take 2 spray(s) nasal route once daily fluticasone (Flonase) 50 MCG/ACT nasal spray Indications: Seasonal allergic rhinitis due to pollen USE 2 SPRAYS IN EACH NOSTRIL DAILY 48 mL 5 03/26/2024 Active Start: 09-06-2023 fluticasone (F LONASE) 50 mcg/actuation nasal spray 2 Sprays once daily. 09/06/2023 Active Start: 09-06-2023 Flonase 0.05 m g/inh [place] 2 spray(s), Nasal, Daily, Refill(s) 0, Dry nasal passages Start Date: 09/06/23 Status: Ordered Start: 06-21-2023 take 2 spray(s) nasa l route in the morning fluticasone (Flonase) 50 MCG/ACT nasal spray Administer 2 sprays into each nostril in the morning. 0 06/21/2023 Active losartan potassium 50 mg oral tablet (10 sources) Angiotensin 2 Receptor Martin Start: 02-09-2024 [...] pantoprazole 40 mg delayed release oral tablet (10 sources) Proton Pump Inhibitor Start: 03-03-2021 pantoprazole [...] Start Date: 09/06/23 Status: Ordered Vitamin E (9 sources) Start: 02-26-2024 vitamin E Oral , Daily, Refills(s) 0, Prophylaxis Start Date: 02/26/24 Status: Ordered Start: 02-26-2024 vitamin E Oral , Refills(s) 0 Start Date: 02/26/24 Status: Ordered Vitamin E, dl, a cetate, (VITAMIN E) 400 unit capsule Take 1 capsule by mouth. Active take 1 capsule by mo [facility] once daily alpha tocopherol (Vitamin E) 400 units capsule Take 1 capsule by mouth 1 (one) time each day at the same time Active zolpidem tartrate 12.5 mg extended release oral tablet (10 sources) gamma-Aminobutyric Acid-ergic Agonist Start: 03-03-2021 Zolpidem [...] Date Documented Da te Episodic/Chronic Abdominal hernia (19 sources) Diaphragmatic hernia without obstruction or gangrene; [...] (4 sources) Patient encounter status; Translations: [Other group home (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 therapy] Onset: 4 08-11-2023 Episodic [...] conditions (not mental disorders or infectious disease) (10 sources) Encounter for screening mammogram for malignant [...] 02-23-2022 Episodic Other aftercare (1 source) Other group home (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 therapy; Translations: [OTH 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 THERAPY] Onset: 02-23-2022 Episodic Other aftercare (1 source) 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 Large Type III PEH. ASSESSMENT/PLAN: chani Obrien is a 73 year old female who [...] Consents obtained Yan Moser MD [facility] 04/29/2024 12:10 PM Signed Consultation requested by Dr. Latrell Jack for an opinion regarding hiatal hernia. My final recommendations will be communicated back to the requesting physician by way of shared medical record or letter via US mail. Shey Obrien is a 73 year old female who [...] and discussed (more content not included)... Normal [facility] CNPNon 04-22-2024 CNPN Telephone (GENStadionautN) SHEY OBRIEN ([id number]) 1950 F Date Time Provider Department 04/22/24 ASHLIE CALDERON During your visit today, we recorded the following information about you: Ashlie Calderon 04/22/2024 5:39 PM Signed Spoke with PT she state no prior surgeries Allergies As of Date: 04/22/2024 (Not on File) Date Reviewed: Never Reviewed Problem List As Of Date: 04/22/2024 (None) Encounter Status:Closed by AHSLIE CALDERON on 04/22/24 [facility] Surgical Pathology Reporton 03-26-2024 Surgical Pathology Report [address] [place] [address]- Surgical Pathology Report Collected Date/Time: 03/20/2024 12:52 EDT Pathologist: Pete Evans MD Received Date/Time: 03/21/2024 08:07 EDT Tory OLIVO, Katie Hairston MD, Katie Torres 07 [...] is entirely submitted in one cassette. (DC) DC:[facility] Microscopic Description Microscopic examination performed unless gross only specified. The use of one or more reagents in the above tests is regulated as an analyte specific reagent (ASR). The test or tests are ordered following initial H&E microscopic examination. The performance characteristics were determined by the Laboratory of [facility]. They have not been cleared or approved by the US Food and Drug Administration. The FDA has determined that such clearance or approval is not necessary. These tests are used for clinical purposes. They should not be regarded as investigational or for research. Appropriate positive and negative controls are performed and are acceptable. Normal [facility] Comment on above: Performed By: #### [id number] #### [facility] [address] [place] [address] XR Esophaguson 03-26-2024 XR Esophagus Exam Date/Time: [...] mGy = 15.80 DAP = 464.17 Normal [facility] Main OR Intraoperative Recor don 03-22-2024 Main OR Intraoperative Record Main OR Intraoperative Record IntraOp Document Type FT Summary Primary Physician: Katie Hairston MD Finalized Date/Time: 03/22/24 14:46:15 Pt. Name: SHEY OBRIEN /Sex: 1950 Female Med Rec #: [id number] Physician: Katie Hairston MD Financial #: [id number] Pt. Type: O Room/Bed: / Admit/Disch: 03/20/24 [...] 3 Case Attendee Mariella JOHNSON, Catalina Ivory INTERLOCKING AND SIGNAL MECHANIC, Анна Hairston MD, Katie Torres Role Performed BUS ANALYST Scrub - Primary Surgeon - Primary Time In 03/20/24 12:44:00 03/20/24 12:44:00 03/20/24 12:44:00 Time Out 03/20/24 12:56:00 03/20/24 12:56:00 03/20/24 12:56:00 Procedure EGD(.) EGD(.) EGD(.) Comments Dr. Hairston supervising procedure. Last Modified By: Mynor FORBES, Violette Lopez RN, Essence Pinto RN 03/22/24 14:45:45 03/20/24 12:56:36 03/20/24 12:56:36 Entry 4 Case Attendee Essence Lopez RN Role Performed Pier Master Assistant - Primary Time In 03/20/24 12:44:00 Time [...] Given Participants Dianelys FORBES, Tory Ellington MD, Katie Torres, Essence Lopez RN [...] Primary Procedure Yes Primary Surgeon Tory OLIVO, Katie Torres Start 03/20/24 12:49:00 Stop [...] and tissue Entry 1 Skin Integrity Intact, [place], Warm, & Skin Abnormality No Dry Outcomes [...] Extended Positioning (more content not included)... Normal [facility] Discharge Instructionson Discharge Instructions Discharge Instructions SHEY OBRIEN :1950 Visit Date:03/20/2024 Inpatient Discharge Instructions Your [...] mg Tab) fluticasone nasal (Flonase 0.05 mg/inh [place]) losartan (losartan 25 mg Tab) multivitamin with [...] after Discharge Follow Up with Tory OLIVO, Katie Torres, [facility] When: Comments: Call for any problems. Office [...] Unchanged fluticasone nasal (Flonase 0.05 mg/ inh [place]) 2 Sprays Nasal Inhalation Every day Unchanged [...] get better (more content not included)... Normal [facility] Comment on above: Result Comment: Elec tronically Signed By: Kassy Barker I\.br\Date and Time Signed: 03/20/24 13:08 EDT Inpatient Patient Summaryon 03-20-2024 Inpatient Patient Summary Inpatient Patient Summary [place] [id number] [facility] Clinical Discharge Instructions PERSON INFORMATION Name: SHEY OBRIEN PHYSICIANS Admitting Physician: Katie Hairston MD Attending [...] (at bedtime). fluticasone nasal (Flonase 0.05 mg/inh [place]) 2 Sprays Nasal Inhalation every day. losartan [...] bedtime) as needed for sleep. Comment: Normal [facility] Main OR PACU I Recordon 03-10 Main OR PACU I Record Main OR PACU I Record PACU Phase I Document Type FT Summary Primary Physician: Katie Hairston MD Finalized Date/Time: 03/20/24 13:37:02 Pt. Name: SHEY OBRIEN/Sex: 1950 Female Med Rec #: [id number] Physician: Katie Hairston MD Financial #: [id number] Pt. Type: O Room/Bed: / Admit/Disch: 03/20/24 [...] By: Kassy Barker I 03/20/24 13:37 Normal [facility] Main OR Preoperative Recordo n 03-20-2024 Main OR Preoperative Record Main OR Preoperative Record Holding Area Document Type FT Summary Primary Physician: Katie Hairston MD Finalized Date/Time: 03/20/24 11:17:32 Pt. Name: SHEY OBRIEN Tamie/Sex: 1950 Female Med Rec #: [id number] Physician: Katie Hairston MD Financial #: [id number] Pt. Type: O Room/Bed: / Admit/Disch: 03/20/24 [...] By: Essence Lopez RN 03/20/24 11:17 Normal [facility] Outpatient Surgery Discharge Instructionon 03-20-2024 Outpatient Surgery Discharge Instruction Outpatient Surgery Discharge Instruction [place] [address] Patient Discharge Instructions PERSON INFORMATION Name: SHEY OBRIEN Date of : 1950 Current Date: 03/20/2024 12:58:56 PHYSICIANS Admitting Physician: Katie Hairston MD Discharge Diagnosis: SHEY OBRIEN has been given the following list of [...] EMERGENCY ROOM OR CALL 911 I, SHEY OBRIEN, have received the attached patient education materials/instructions [...] to serve you. Thank you for choosing [facility] HERE ARE THE MEDICATION CHANGES [...] (at bedtime). fluticasone nasal (Flonase 0.05 mg/inh [place]) 2 Sprays Nasal Inhalation every day. losartan [...] sleep. PATIENT EDUCATION INFORMATION Instructions: Medication Leaflets: [facility] Proceduralon 03-20-2024 Procedural Procedural Patient: SHEY OBRIEN Age: 73 years Sex: Female : 1950 Associated Diagnoses: None Author: Daquan Schuler MD Postoperative Information Postoperative disposition: Postoperative disposition: To PACU. Optimetrix number: Optimetrix number [id number]. Anesthetic utilized: General. Health Status Allergies: Allergic [...] meets criteria ( To home ). Kary [facility] Procedural Procedural Patient: SHEY OBRIEN Age: 73 years Sex: Female : 1950 [...] 1 tab, Oral, Daily Flonase 0.05 mg/inh [place]: 2 spray(s), Nasal, Daily, Refill(s) 0, Dry [...] a day (at bedtime) Flonase 0.05 mg/inh [place] 2 spray(s), Nasal, Daily losartan 25 mg [...] All Problems BMI 39.0-39.9,adult / SNOMED CT 723650486 / Confirmed Chronic obstructive pulmonary disease / SNOMED CT 73827505 / Confirmed Dyslipidemia / SNOMED CT 1464353775 / Confirmed Dysphagia / SNOMED CT 20667477 / Confirmed GERD (gastroesophageal reflux disease) / SNOMED CT 733923813 / Confirmed Hiatal hernia / SNOMED CT 378504407 / Confirmed HTN (hypertension) / SNOMED CT 8111521539 / Confirmed Insomnia / SNOMED CT 142414369 / Confirmed Lower extremity edema / SNOMED CT 404304574 / Confirmed Morbid obesity / SNOMED CT 491510642 / Confirmed EDWIN (obstructive sleep apnea) / SNOMED CT 641541688 / Confirmed Screening for malignant neoplasm of colon / SNOMED CT 340284079 / Confirmed Seasonal allergic rhinitis / SNOMED CT 060520271 / Confirmed TIA (transient ischemic attack) / SNOMED CT 454876894 / Confirmed Resolved: At risk for falls / SNOMED CT 440911735 Problem added when Risk for Falls Careplan was initiated. Resolved due to patient discharge. Resolved: Hernia / SNOMED CT 604352973 Resolved: Potential for deficient knowledge of cerebrovascular accident (CVA) / IMO 54512901 problem added based on Stroke Powerplan ordered. Resolved due to patient discharge. Resolved: Sleep apnea / SNOMED CT 972684890, Active Problems (14) BMI 39.0-39.9,adult Chronic obstructive pulmonary disease Dyslipidemia Dysphagia GERD (gastroesophageal reflux disease) Hiatal hernia HTN (hypertension) Insomnia Lower extremity edema Morbid obesity EDWIN (obstructive sleep apnea) Screening for malignant neoplasm of colon Seasonal allergic rhinitis TIA (transient ischemic (more content not included)... Normal [facility] Ambulatory Visit Summaryon 0 02-26-2024 Ambulatory Visit Summary Ambulatory Visit Summary SHEY OBRIEN :1950 Visit Date:02/26/2024 Ambulatory Visit Instructions Your Diagnosis Dysphagia Hiatal hernia GERD (gastroesophageal reflux disease) Your Care Team Attending Physician - Tory OLIVO, Katie Torres Primary Care Physician - [...] mg Tab) fluticasone nasal (Flonase 0.05 mg/inh [place]) losartan (losartan 25 mg Tab) multivitamin with [...] Unchanged fluticasone nasal (Flonase 0.05 mg/ inh [place]) 2 Sprays Nasal Inhalation Every day Contact [...] your care. Normal [facility] Gastroenterology Office/Clin ic Noteon 02-26-2024 Gastroenterology Office/Clinic [...] to eat proceed with EGD with dilation (savory) Differential includes mechanical causes for dysphagia including Schatzki ring, strictures, cannot rule out malignancy, but also we discussed with large hiatal hernias, esophagus becomes more torturous and therefore evaluation for surgery might be needed if symptoms are that bad 2. Hiatal hernia (K44.9: Diaphragmatic hernia without obstruction or gangrene) reports she had esophagram in [place] no egd in the past declined surgery [...] a day (at bedtime) Flonase 0.05 mg/inh [place], 2 spray(s), Nasal, Daily losartan 25 mg [...] virus vaccine, inactivated 05/03/2022 Recorded SARS-CoV-2 (COVID-19) [id number] 05/03/2022 Recorded influenza virus vaccine, inactivated 04/12/2021 [...] influenza virus vaccine, inactivated 04/16/2015 Recorded Normal [facility] Comment on above: Result Comment: Elec tronically Signed By: Tory OLIVO, Katie Torres\.br\Date and Time Signed: 02/26/24 09:38 EDT IntraOperative Documentson 0 10-19-2023 IntraOperative Documents [id number] 0TIFF Normal [facility] Consenton 10-16-2023 Consent [id number] TIFF Normal [facility] Discharge Instructionson Discharge Instructions [id number]#[id number] TIFF Normal [facility] Main OR Intraoperative Recor don 10-16-2023 Main OR Intraoperative Record IntraOp Document Type FT Summary Primary Physician: Pa WEBB MD Finalized Date/Time: 10/16/23 09:46:21 Pt. Name: SHEY OBRIEN /Sex: 1950 Female Med Rec #: [id number] Physician: Pa WEBB MD Financial #: [id number] Pt. Type: O Room/Bed: / Admit/Disch: 10/13/23 07:49:21 - 10/13/23 23:59:59 Institution: Case Times FT Entry 1 Patient Times In Room 10/13/23 08:55:00 Out Room 10/13/23 09:16:00 Procedure Times Start 10/13/23 08:59:00 Stop 10/13/23 09:12:00 Anesthesia Times Start 10/13/23 08:55:00 Stop 10/13/23 09:16:00 Time at [place] 10/13/23 09:03:00 Last Modified By: Kimberly Ifnante RN 10/13/23 09:16:34 General Comments: 10/16/23 Chart opened for charge review only per Danilo Bennett RN. [place] Case Attendance FT Entry 1 Entry 2 Entry 3 Case Attendee Valentin Schrader MD, Kimberly Mcclellan RN Role Performed Anesthesiologist Surgeon - Primary Pier Master Assistant - Primary Automatic Splicing Machine Operator Time In 10/13/23 08:55:00 10/13/23 08:55:00 [...] and tissue Entry 1 Skin Integrity Intact, [place], Warm, and Skin Abnormality No Dry Outcomes [...] Infante RN (more content not included)... Normal [facility] Postoperative Documentson Postoperative Documents [id number] TIFF Normal [facility] Reminderson 10-16-2023 Reminders - From: Nhi Aguirre LPN To: GSN - Clinical; Sent: 10/16/2023 10:15:48 EDT Show up: 09/11/2033 07:00:00 EST Subject: colonoscopy recall Due Date/Time: 10/12/2033 07:00:00 EDT Reminder/Recall Patient due for screening colonoscopy 10/12/2033. Normal [facility] Colonoscopy Procedure Report on 10-13-2023 Colonoscopy Procedure Report Patient: SHEY OBRIEN Age: 73 years Sex: Female : 1950 [...] extent examined. Images Procedure images: anal canal [id number].jpg ileocecalvalve [id number].jpg appendiceal orificie . Post-Procedure Complications: none. Estimated blood loss: none. Specimens: none. Devices/ implants: none left in place. Impression and Plan Diagnosis: Encounter for screening for malignant neoplasm of rectum (TZK88-DF Z12.12, Discharge, Medical). Course: Progressing as expected. Recommendations: Repeat colonoscopy:: In 10 years. Follow-up:: if problems/questions. Diet:: Regular diet. Medication resumption:: Continue current medications. Return to activities:: After 24 hours. Education and Follow-up: Counseled: Family. Normal [facility] Comment on above: Other Comment: Samreen dueñas Attachment - attachment storage system not supported [id number] Can be viewed in source systemMissing Attachment - attachment storage system not supported [id number] Can be viewed in source systemMissing Attachment - attachment storage system not supported [id number] Can be viewed in source systemMissing Attachment - attachment storage system not supported [id number] Can be viewed in source systemMissing Attachment - attachment storage system not supported [id number] Can be viewed in source system Consent for Treatmenton Consent for Treatment [id number] IFF Normal [facility] Discharge Instructionson Discharge Instructions SHEY OBRIEN :1950 Visit Date:10/13/2023 Inpatient Discharge Instructions Your [...] mg Tab) fluticasone nasal (Flonase 0.05 mg/inh [place]) losartan (losartan 25 mg Tab) multivitamin with [...] Pa WEBB When: Only if needed Where: [address] [place], [place] [address]dict [place], [facility] [address] [place] [phone] [employer] (1) Medications What How Much When Instructions [...] Unchanged fluticasone nasal (Flonase 0.05 mg/ inh [place]) 2 Sprays Nasal Inhalation Every day Unchanged [...] as instru (more content not included)... Normal [facility] Comment on above: Result Comment: Elec tronically Signed By: Marcy FORDE, Mariaelena\.br\Date and Time Signed: 10/13/23 09:33 EDT Inpatient Patient Summaryon 10-13-2023 Inpatient Patient Summary [address] [address] [facility] Clinical Discharge Instructions PERSON INFORMATION Name: SHEY OBRIEN [facility]#:[id number] PHYSICIANS Admitting Physician: Pa WEBB MD Attending Physician: Pa WEBB MD PCP: LATRELL JACK MD Discharge Diagnosis: Encounter for colorectal cancer screening; Encounter for screening for malignant neoplasm of rectum Comment: PATIENT EDUCATION INFORMATION Instructions: Medication Leaflets: Follow up: With: Address: When: Pa WEBB [address], [address], [place] [phone] Business (1) , only if needed MEDICATION [...] (at bedtime). fluticasone nasal (Flonase 0.05 mg/inh [place]) 2 Sprays Nasal Inhalation every day. losartan [...] bedtime) as needed for sleep. Comment: Kary [facility] Main OR PACU I Recordon Main OR PACU I Record PACU Phase I Document Type FT Summary Primary Physician: Pa WEBB MD Finalized Date/Time: 10/13/23 09:54:27 Pt. Name: SHEY OBRIEN/Sex: 1950 Female Med Rec #: [id number] Physician: Pa WEBB MD Financial #: [id number] Pt. Type: O Room/Bed: / Admit/Disch: 10/13/23 [...] By: Mariaelena Vidal RN 10/13/23 09:54 Normal [facility] Main OR Preoperative Recordo n 10-13-2023 Main OR Preoperative Record Holding Area Document Type FT Summary Primary Physician: Pa WEBB MD Finalized Date/Time: 10/13/23 08:06:06 Pt. Name: SHEY OBRIEN/Sex: 1950 Female Med Rec #: [id number] Physician: Pa WEBB MD Financial #: [id number] Pt. Type: O Room/Bed: / Admit/Disch: 10/13/23 [...] Signed By: Olivia Domínguez 10/13/23 08:06 Normal [facility] Monitor Recordon 10-13-2023 Monitor Record [id number] TIFF Normal [facility] Monitor Record [id number] TIFF [facility] Outpatient Surgery Discharge Instructionon 10-13-2023 Outpatient Surgery Discharge Instruction [place] [id number] Patient Discharge Instructions PERSON INFORMATION Name: SHEY OBRIEN Date of : 1950 Current Date: 10/13/2023 09:16:35 PHYSICIANS Admitting Physician: Pa WEBB MD Discharge Diagnosis: Encounter for colorectal cancer screening; Encounter for screening for malignant neoplasm of rectum SHEY OBRIEN has been given the following list of [...] With: Address: When: [address], [address], [place] [phone] Business (1) , only if needed Pharmacy [...] to serve you. Thank you for choosing [facility] HERE ARE THE MEDICATION CHANGES [...] (at bedtime). fluticasone nasal (Flonase 0.05 mg/inh [place]) 2 Sprays Nasal Inhalation every day. losartan [...] sleep. PATIENT EDUCATION INFORMATION Instructions: Medication Leaflets: [facility] Patient Education - Texton 0 10-13-2023 Patient [...] or gets worse throughout the day. Normal [facility] Progress Note-Physicianon Progress Note-Physician Patient: SHEY OBRIEN Age: 73 years Sex: Female : 1950 Associated Diagnoses: None Author: Shaji Bethea Jr., DO Postoperative Information Postoperative disposition: Postoperative disposition: Home. Optimetrix number: Optimetrix number [id number]. Anesthetic utilized: General. Physical Examination Vital Signs [...] Surgery Unit, and To home ). Normal [facility] Comment on above: Result Comment: Elec tronically Signed By: Shaji Bethea Jr., DO\.br\Date and Time Signed: 10/13/23 11:02 EDT Progress Note-Physician Patient: SHEY OBRIEN Age: 73 years Sex: Female : 1950 [...] m2 Documented Medications Documented Flonase 0.05 mg/inh [place]: 2 spray(s), Nasal, Daily, Refill(s) 0, Dry [...] a day (at bedtime) Flonase 0.05 mg/inh [place] 2 spray(s), Nasal, Daily losartan 25 mg [...] All Problems BMI 39.0-39.9,adult / SNOMED CT 174198941 / Confirmed Chronic obstructive pulmonary disease / SNOMED CT 51911255 / Confirmed Dyslipidemia / SNOMED CT 9411565160 / Confirmed GERD (gastroesophageal reflux disease) / SNOMED CT 630839926 / Confirmed Hiatal hernia / SNOMED CT 453285755 / Confirmed HTN (hypertension) / SNOMED CT 1977339094 / Confirmed Insomnia / SNOMED CT 054665026 / Confirmed Lower extremity edema / SNOMED CT 870141527 / Confirmed Morbid obesity / SNOMED CT 687319909 / Confirmed EDWIN (obstructive sleep apnea) / SNOMED CT 240834451 / Confirmed Screening for malignant neoplasm of colon / SNOMED CT 040350450 / Confirmed Seasonal allergic rhinitis / SNOMED CT 064153010 / Confirmed TIA (transient ischemic attack) / SNOMED CT 001233985 / Confirmed Resolved: At risk for falls / SNOMED CT 025688952 Problem added when Risk for Falls Careplan was initiated. Resolved due to patient discharge. Resolved: Hernia / SNOMED CT 493515951 Resolved: Potential for deficient knowledge of cerebrovascular accident (CVA) / IMO 58797739 problem added based on Stroke Powerplan ordered. Resolved due to patient discharge. Resolved: Sleep apnea / SNOMED CT 142865521 Histories Past Medical History: Resolved Hernia (045789822): Resolved. Sleep apnea (685543374): Resolved. Procedure history: ORIF - Open reduction of fracture of ankle with internal fixation ([id number]). Meniscal repair (671176371). Tonsillectomy (572980527). Hand tendon repaired (184039144). Social History Social & Psychosocial Habits Alcohol 09/12/2023 Frequency: 1-2 times per year Substance Abuse Comment: denies - 03/03/2021 07:19 - Carolyn Stewart RN 09/12/2023 Risk Assessment: Denies Substance Abuse Tobacco 09/12/2023 Tobacco Use: Former smoker, quit more Smokeless tobacco use: Never Type: Cigarettes . Physical Examination Vital Signs 10/13/2023 8:03 EDT Temperature Temporal Artery 36.3 DegC (more content not included)... Normal [facility] Comment on above: Result Comment: Elec tronically Signed By: Shaji Bethea Jr., DO\Date and Time Signed: 10/13/23 08:04 EDT Consent for Procedure/Surger yon 09-13-2023 Consent for Procedure/Surgery [id number] FF Normal [place] [facility] Ambulatory Visit Summaryon 0 09-12-2023 Ambulatory Visit Summary SHEY OBRIEN :1950 Visit Date:09/12/2023 Ambulatory Visit Instructions Your [...] mg Tab) fluticasone nasal (Flonase 0.05 mg/inh [place]) losartan (losartan 25 mg Tab) multivitamin with [...] Unchanged fluticasone nasal (Flonase 0.05 mg/ inh [place]) 2 Sprays Nasal Inhalation Every day Contact [...] you for choosing us for your care. [facility] Provider Letteron 08-25-2023 Provider Letter (Inserted Image. Celia ble to display) August 25, 2023 SHEY OBRIEN [address] [place] [id number] : 1950 Dear Ms. Obrien, We have been trying to reach you with no success regarding a referral from Dr Jack. It is important that you return our call upon receiving this letter so that we can set up an appointment for you in either our [place] or [place] office. Also, at the time of your call, please provide us with your current demographic and insurance information. Thank you for your prompt attention to this matter. Sincerely, [facility] General Surgery [phone] [facility] Physician Referralon 024 Physician Referral [id number] 202 [id number] IFF Normal [place] [facility] CT LUNG CANCER SCREENINGon 0 07-28-2022 [...] MEHNAZ SANTIAGO Date: 2022-07-28 15:28 Normal [facility] BNPon 02-22-2022 Natriuretic peptide B (Bld) [Mass/Vol] 108.0 pg/mL Normal <=900.0 [facility] Comment on above: Performed By: #### B MP, BNP, HSTROPN ####[facility] [address] [place] [address]Dr. Felisa Trujillo CBC AUTO DIFFon 02-22-2022 BASO # 0.0 103/ul Normal 0.0-0.1 [facility] Comment on above: Performed By: #### C BC ####[facility] [address]dp[address] [place] [address]DrMichelle Trujillo Basophils/100 WBC (Bld) 0.7 % Normal 0.2-2.0 [facility] Comment on above: Performed By: #### C BC ####[facility] [address] [place] [address]Dr. Felisa Trujillo EO # 0.1 103/ul Normal 0.0-0.7 [facility] Comment on above: Performed By: #### C BC ####[facility] [address]clpigamh[address] [place] [address]Dr. Krystakun Trujillo Eosinophils/100 WBC (Bld) 1.4 % Normal 0.9-7.0 [facility] Comment on above: Performed By: #### C BC ####[facility] [address] [place], [place] [address]Dr. Krystakun Trujillo Erythrocyte distribution width (RBC) [Ratio] 13.2 % Normal 11.0-15.0 [facility] Comment on above: Performed By: #### C BC ####[facility] [address] [place], [place] [address]Dr. Krystakun Trujillo Hematocrit (Bld) [Volume fraction] 36.6 % Normal 36.0-48.0 [facility] Comment on above: Performed By: #### C BC ####[facility] Xl[address] [place], [place] [address]Dr. Felisa Trujillo Hemoglobin (Bld) [Mass/Vol] 12.7 g/dL Normal 12.0-16.0 [facility] Comment on above: Performed By: #### C BC ####[facility] Si[address]ori[address] [place], [place] [address]Dr. Krystakun Trujillo IG # 0.01 10e3/ul Normal 0.00-0.03 [facility] Comment on above: Performed By: #### C BC ####[facility] Ex[address] [place], [place] [address]Dr. Krystakun Trujillo IG % 0.2 % Normal 0.0-0.5 [facility] Comment on above: Performed By: #### C BC ####[facility] N[address] [place], [place] [address]DrMichelle Trujillo LYMPH # 1.0 103/ul Critically low 1.2-3.8 [facility] Comment on above: Performed By: #### C BC ####[facility] [address] [place] [address]Dr. Felisa Trujillo Lymphocytes/100 WBC (Bld) 22.3 % Normal 20.5-60.0 [facility] Comment on above: Performed By: #### C BC ####[facility] [address] [place] [id number] Trujillo MANUAL DIFF REQ NO Normal [facility] Comment on above: Performed By: #### C BC ####[facility] [address]jns[address] [place] [id number]. Felisa Trujillo MCH (RBC) [Entitic mass] 31.8 pg Normal 26.7-34.0 [facility] Comment on above: Performed By: #### C BC ####[facility] [address] [place], [place] [address]Dr. Felisa Trujillo MCHC (RBC) [Mass/Vol] 34.7 g/dL Normal 29.9-35.2 [facility] Comment on above: Performed By: #### C BC ####[facility] [address] [place] [id number] Trujillo MCV (RBC) [Entitic vol] 91.7 fL Normal 81.0-99.0 [facility] Comment on above: Performed By: #### C BC ####[facility] [address] [place] [address]Dr. Felisa Trujillo MONO # 0.5 103/ul Normal 0.3-0.8 [facility] Comment on above: Performed By: #### C BC ####[facility] [address] [place] [address]DrMichelle Trujillo Monocytes/100 WBC (Bld) 11.7 % Normal 1.7-12.0 [facility] Comment on above: Performed By: #### C BC ####[facility] [address] [place] [address]DrMichelle Trujillo NEUT # 2.7 103/ul Normal 1.4-6.5 [facility] Comment on above: Performed By: #### C BC ####[facility] [address] [place] [address]Dr. Felisa Trujillo Neutrophils/100 WBC (Bld) 63.7 % Normal 43.0-75.0 [facility] Comment on above: Performed By: #### C BC ####[facility] [address] [place] [id number]. Felisa Trujillo Platelet mean volume (Bld) [Entitic vol] 10.2 fL Normal 9.5-13.5 [facility] Comment on above: Performed By: #### C BC ####[facility] [address] [place] [address]Dr. Felisa Trujillo PLT 149 103/ul Critically low 150-450 [facility] Comment on above: Performed By: #### C BC ####[facility] [address] [place] [address]Dr. Felisa Trujillo RBC 3.99 106/ul Critically low 4.20-5.40 [facility] Comment on above: Performed By: #### C BC ####[facility] [address] [place] [address]Dr. Felisa Trujillo WBC 4.3 103/ul Normal 4.0-11.0 [facility] Comment on above: Performed By: #### C BC ####[facility] [address] [place] [id number]. Felisa Trujillo Covid-19 PCR ([facility]on 02-07 SARS-CoV-2 (COVID-19) RNA DUGLAS+probe Ql (Unsp spec) Detected Critically abnormal NOT DETECTED [facility] Comment on above: Result Comment: This test is not yet approved or cleared by the [place] FDA. When there are no FDA-approved or cleared tests available, and other criteria are met, FDA can make tests available under an emergency access mechanism called an Emergency Use Authorization (EUA). The EUA for this test is supported by the Rn Disease Management of Health and Human Service's declaration that [...] be used). Performed By: #### C VDTBH ####[facility] [address] [place], [place] [address]Dr. Felisa Trujillo PROF CHEM 8 (BAS METB)on Anion gap [Moles/Vol] 14.9 mmol/L Normal [facility] Comment on above: Performed By: #### B MP, BNP, HSTROPN ####[facility] [address] [place], [place] [address]Dr. Felisa Trujillo Calcium [Mass/Vol] 8.9 mg/dL Normal 8.5-10.1 [facility] Comment on above: Performed By: #### B MP, BNP, HSTROPN ####[facility] [address] [place], [place] [address]Dr. Felisa Trujillo Chloride [Moles/Vol] 104 mmol/L Normal 98-107 [facility] Comment on above: Performed By: #### B MP, BNP, HSTROPN ####[facility] [address] [place], [place] [address]Dr. Felisa Trujillo CO2 [Moles/Vol] 24.0 mmol/L Normal 21.0-32.0 [facility] Comment on above: Performed By: #### B MP, BNP, HSTROPN ####[facility] [address] [place], [place] [address]Dr. Felisa Trujillo Creatinine [Mass/Vol] 0.98 mg/dL Normal 0.55-1.02 [facility] Comment on above: Performed By: #### B MP, BNP, HSTROPN ####[facility] [address] [place], [place] [address]Dr. Felisa Trujillo EGFR-AF TUNISIAN >60 Normal >=60 [facility] Comment on above: Performed By: #### B MP, BNP, HSTROPN ####[facility] [address] [place] [address]Dr. Felisa Trujillo EGFR-NON AF TUNISIAN 56 mL/min/1.73m2 Critically low >=60 [facility] Comment on above: Performed By: #### B MP, BNP, HSTROPN ####[facility] [address] [place] [address]Dr. Felisa Trujillo Glucose [Mass/Vol] 136 mg/dL Critically high 74-106 [facility] Comment on above: Performed By: #### B MP, BNP, HSTROPN ####[facility] [address] [place] [address]Dr. Felisa Trujillo Potassium [Moles/Vol] 3.9 mmol/L Normal 3.5-5.1 [facility] Comment on above: Performed By: #### B MP, BNP, HSTROPN ####[facility] [address]nob[address] [place] [address]Dr. Felisa Trujillo Sodium [Moles/Vol] 139 mmol/L Normal 136-145 [facility] Comment on above: Performed By: #### B MP, BNP, HSTROPN ####[facility] [address] [place] [address]Dr. Felisa Trujillo Urea nitrogen [Mass/Vol] 14.0 mg/dL Normal 7.0-18.0 [facility] Comment on above: Performed By: #### B MP, BNP, HSTROPN ####[facility] [address] [place] [address]Dr. Felisa Trujillo Urea nitrogen/Creatinine [Mass ratio] 14.3 mg/mg Normal [facility] Comment on above: Performed By: #### B MP, BNP, HSTROPN ####[facility] [address] [place], [place] [address]Dr. Felisa Trujillo TROPONIN, HIGH SENSITIVITYon 02-22-2022 HSTROP 5.9 pg/mL Normal 4.0-51.3 [facility] Comment on above: Result Comment: CUT- OFF POINTS HAVE BEEN ESTABLISHED BASED ON THE FOURTH UNIVERSAL DEFINITIONS OF MYOCARDIAL INFARCTION. THE UPPER REFERENCE LIMIT (URL) OF TROPONIN, DEFINED THE 99TH PERCENTILE OF cTnI DISTRIBUTION IN A REFERENCE POPULATION, HAS BEEN CONFIRMED THE DECISION THRESHOLD FOR [place] DIAGNOSIS. Performed By: #### B MP, BNP, HSTROPN ####[facility] [address] [place], [place] [address]ZcMichelle Trujillo XR CHEST 1 Von 02-22-2022 XR [...] MEHNAZ SANTIAGO Date: 2022-02-22 13:30 Normal [facility] MAMM SCREEN 3D RONALD CADon 11-11-2021 MAMM SCREEN 3D RONALD CAD Patient: SHEY OBRIEN Exam Date: 11/11/2021 : 1950 Gender:F Ordering : DR LATRELL JACK . Admission #: [id number] Family : Order #: [id number] CLICK HERE TO VIEW EXAM RADIOLOGY REPORT PROCEDURE: MAMMOGRAM SCREENING 3D BILATERAL CAD COMPARISON: MAMM SCREEN 3D RONALD CAD, 11/05/2020. INDICATIONS: Screening mammography Calculator Name NCI Breast Cancer Risk Assessment Tool 5 Year Breast Cancer Risk 1.90% Lifetime Breast Cancer Risk 5.60% Personal Breast Cancer No Personal Ovarian Cancer No Treatments None Family Cancers Father with lung cancer at age 45. LOCATION: [facility] BREAST COMPOSITION: Almost entirely fatty. FINDINGS: DIAGNOSTIC [...] MD on 11/11/2021 at 13:04 Normal [facility] BNPon 11-02-2021 Natriuretic peptide B (Bld) [Mass/Vol] 42.0 pg/mL Normal <=900.0 [facility] Comment on above: Performed By: #### H STROPN, CMP, BNP #### [facility] [address] [place] [address] Dr. Felisa Trujillo CBC AUTO DIFFon 11-02-2021 BASO # 0.1 103/ul Normal 0.0-0.1 [facility] Comment on above: Performed By: #### C BC #### [facility] [address] [place] [address] Dr. Felisa Trujillo Basophils/100 WBC (Bld) 0.8 % Normal 0.2-2.0 [facility] Comment on above: Performed By: #### C BC #### [facility] [address] [place] [address] Dr. Felisa Trujillo EO # 0.3 103/ul Normal 0.0-0.7 [facility] Comment on above: Performed By: #### C BC #### [facility] [address] [place] [address] Dr. Felisa Trujillo Eosinophils/100 WBC (Bld) 3.9 % Normal 0.9-7.0 [facility] Comment on above: Performed By: #### C BC #### [facility] [address] [place] [address] Dr. Felisa Trujillo Erythrocyte distribution width (RBC) [Ratio] 12.7 % Normal 11.0-15.0 [facility] Comment on above: Performed By: #### C BC #### [facility] [address] [place] [address] Dr. Felisa Trujillo Hematocrit (Bld) [Volume fraction] 40.2 % Normal 36.0-48.0 [facility] Comment on above: Performed By: #### C BC #### [facility] [address] [place] [address] Dr. Felisa Trujillo Hemoglobin (Bld) [Mass/Vol] 13.6 g/dL Normal 12.0-16.0 [facility] Comment on above: Performed By: #### C BC #### [facility] [address] [place] [address] Dr. Felisa Trujillo IG # 0.02 10e3/ul Normal 0.00-0.03 [facility] Comment on above: Performed By: #### C BC #### [facility] [address] [place] [address] Dr. Felisa Trujillo IG % 0.3 % Normal 0.0-0.5 [facility] Comment on above: Performed By: #### C BC #### [facility] [address] [place] [address] Dr. Felisa Trujillo LYMPH # 1.9 103/ul Normal 1.2-3.8 [facility] Comment on above: Performed By: #### C BC #### [facility] [address] [place] [address] Dr. Felisa Trujillo Lymphocytes/100 WBC (Bld) 30.0 % Normal 20.5-60.0 [facility] Comment on above: Performed By: #### C BC #### [facility] [address] [place] [address] Dr. Felisa Trujillo MANUAL DIFF REQ NO Normal [facility] Comment on above: Performed By: #### C BC #### [facility] [address] [place] [address] Dr. Felisa Trujillo MCH (RBC) [Entitic mass] 31.5 pg Normal 26.7-34.0 [facility] Comment on above: Performed By: #### C BC #### [facility] [address] [place] [address] Dr. Felisa Trujillo MCHC (RBC) [Mass/Vol] 33.8 g/dL Normal 29.9-35.2 [facility] Comment on above: Performed By: #### C BC #### [facility] [address] [place] [address] Dr. Felisa Trujillo MCV (RBC) [Entitic vol] 93.1 fL Normal 81.0-99.0 [facility] Comment on above: Performed By: #### C BC #### [facility] [address] [address] [address] Felisa Trujillo MONO # 0.6 103/ul Normal 0.3-0.8 [facility] Comment on above: Performed By: #### C BC #### [facility] [address] [address] [address] Felisa Trujillo Monocytes/100 WBC (Bld) 8.5 % Normal 1.7-12.0 [facility] Comment on above: Performed By: #### C BC #### [facility] [address] [address] [address] Felisa Trujillo NEUT # 3.7 103/ul Normal 1.4-6.5 [facility] Comment on above: Performed By: #### C BC #### [facility] [address] [place] [address] Dr. Felisa Trujillo Neutrophils/100 WBC (Bld) 56.5 % Normal 43.0-75.0 [facility] Comment on above: Performed By: #### C BC #### [facility] [address] [place] [address] Dr. Felisa Trujillo Platelet mean volume (Bld) [Entitic vol] 9.9 fL Normal 9.5-13.5 [facility] Comment on above: Performed By: #### C BC #### [facility] [address] [place] [address] Dr. Felisa Trujillo PLT 193 103/ul Normal 150-450 [facility] Comment on above: Performed By: #### C BC #### [facility] [address] [place] [address] Dr. Felisa Trujillo RBC 4.32 106/ul Normal 4.20-5.40 [facility] Comment on above: Performed By: #### C BC #### [facility] [address] [place] [address] Dr. Felisa Trujillo WBC 6.5 103/ul Normal 4.0-11.0 [facility] Comment on above: Performed By: #### C BC #### [facility] [address] [address] [address] Felisa Trujillo Covid-19 PCR (CVDTB)on 10-09 SARS-CoV-2 (COVID-19) RNA DUGLAS+probe Ql (Unsp spec) Not detected Normal NOT DETECTED [facility] Comment on above: Result Comment: When diagnostic [...] for this test is supported by the Rn Disease Management of Health and Human Service's declaration that [...] used). Performed By: #### C VDTBH #### [facility] [address] [address] [address] Felisa Trujillo LACTATE/LACTIC ACIDon 2021 Lactate [Moles/Vol] 1.0 mmol/L Normal 0.4-2.0 [facility] Comment on above: Performed By: #### L ACT ####[facility] [address] [place] [address]Dr. Felisa Trujillo PH VENOUS BLOODon 11-02-2021 PCO2 VENOUS 40.3 mmHg Normal 40.0-52.0 [facility] Comment on above: Performed By: #### P HVEN ####[facility] [address] [place] [address]Dr. Felisa Trujillo pH VENOUS 7.431 Critically high 7.330-7.430 [facility] Comment on above: Performed By: #### P HVEN ####[facility] [address] [place] [address]Dr. Felisa Trujillo PROF 14(COMP METB)on 022 Albumin [Mass/Vol] 4.1 g/dL Normal 3.4-5.0 [facility] Comment on above: Performed By: #### H STROPN, CMP, BNP ####[facility] [address] [place] [address]Dr. Felisa Trujillo Albumin/Globulin [Mass ratio] 1.1 {ratio} Normal [facility] Comment on above: Performed By: #### H STROPN, CMP, BNP ####[facility] [address] [place] [address]Dr. Felisa Trujillo ALP [Catalytic activity/Vol] 120 U/L Critically high 46-116 [facility] Comment on above: Performed By: #### H STROPN, CMP, BNP ####[facility] [address] [place], [place] [address]Dr. Felisa Trujillo ALT [Catalytic activity/Vol] 29 U/L Normal 14-59 [facility] Comment on above: Performed By: #### H STROPN, CMP, BNP ####[facility] [address] [place] [address]Dr. Felisa Trujillo Anion gap [Moles/Vol] 14.2 mmol/L Normal [facility] Comment on above: Performed By: #### H STROPN, CMP, BNP ####[facility] [address] [place] [address]Dr. Felisa Trujillo AST [Catalytic activity/Vol] 24 U/L Normal 15-37 [facility] Comment on above: Performed By: #### H STROPN, CMP, BNP ####[facility] [address] [place] [address]Dr. Felisa Trujillo Bilirubin [Mass/Vol] 0.6 mg/dL Normal 0.2-1.0 [facility] Comment on above: Performed By: #### H STROPN, CMP, BNP ####[facility] [address] [place] [address]Dr. Felisa Trujillo Calcium [Mass/Vol] 8.8 mg/dL Normal 8.5-10.1 [facility] Comment on above: Performed By: #### H STROPN, CMP, BNP ####[facility] [address] [place] [address]Dr. Felisa Trujillo Chloride [Moles/Vol] 103 mmol/L Normal 98-107 [facility] Comment on above: Performed By: #### H STROPN, CMP, BNP ####[facility] [address]xs[address] [place] [address]Dr. Krystakun Ronnie CO2 [Moles/Vol] 25.3 mmol/L Normal 21.0-32.0 [facility] Comment on above: Performed By: #### H STROPN, CMP, BNP ####[facility] [address] [place] [address]Dr. Felisa Trujillo Creatinine [Mass/Vol] 0.86 mg/dL Normal 0.55-1.02 [facility] Comment on above: Performed By: #### H STROPN, CMP, BNP ####[facility] [address] [place], [place] [address]Dr. Felisa Ronnie EGFR-AF TUNISIAN >60 Normal >=60 [facility] Comment on above: Performed By: #### H STROPN, CMP, BNP ####[facility] [facility] [address] [place], [place] [address]Dr. Krystakun Ronnie EGFR-NON AF TUNISIAN >60 Normal >=60 [facility] Comment on above: Performed By: #### H STROPN, CMP, BNP ####[facility] [address] [address]Dr. Krystakun Ronnie Globulin (S) [Mass/Vol] 3.6 g/dL Normal [facility] Comment on above: Performed By: #### H STROPN, CMP, BNP ####[facility] [address] [address]Dr. Felisa Trujillo Glucose [Mass/Vol] 90 mg/dL Normal 74-106 [facility] [place] [facility] Comment on above: Performed By: #### H STROPN, CMP, BNP ####[facility] [address] [address]Dr. Felisa Trujillo Potassium [Moles/Vol] 3.5 mmol/L Normal 3.5-5.1 [facility] Comment on above: Performed By: #### H AJITH, CMP, BNP ####[facility] [address] [id number]. Felisa Trujillo Protein [Mass/Vol] 7.7 g/dL Normal 6.1-8.2 [facility] [place] [facility] Comment on above: Performed By: #### H AJITH, CMP, BNP ####[facility] [address] [address]Dr. Felisa Trujillo Sodium [Moles/Vol] 139 mmol/L Normal 136-145 [facility] [place] [facility] Comment on above: Performed By: #### H AJITH, CMP, BNP ####[facility] [address] [address]Dr. Felisa Trujillo Urea nitrogen [Mass/Vol] 13.0 mg/dL Normal 7.0-18.0 [facility] Comment on above: Performed By: #### H AJITH, CMP, BNP ####[facility] [address] [address]Dr. Felisa Trujillo Urea nitrogen/Creatinine [Mass ratio] 15.1 mg/mg Normal [facility] Comment on above: Performed By: #### H AJITH, CMP, BNP ####[facility] [address] [place] [address] [address]DrMichelle Trujillo PROTIMEon 11-02-2021 INR Coag (PPP) [Relative time] 0.99 {INR} Normal [facility] Comment on above: Performed By: #### P TT, PT #### [facility] [address] [address] [address] Felisa Trujillo INR GUIDELINES SEE BELOW Normal [facility] Comment on above: Result Comment: KAY RED INR: 2.0 - 3.0 CONDITIONS NOT LISTED BELOW 2.5 - 3.5 FOR PROSTHETIC HEART VALVE REPLACEMENT 2.5 - 3.5 RECURRENT THROMBOSIS Performed By: #### P TT, PT #### [facility] [address] [address] [address] Felisa Trujillo PT Coag (PPP) [Time] 10.7 s Normal 9.0-11.6 [facility] Comment on above: Performed By: #### P TT, PT #### [facility] [address] [place], [place] [address] Dr. Felisa Trujillo PTTon 11-02-2021 aPTT Coag (Bld) [Time] 25.9 s Normal 22.3-36.2 [facility] Comment on above: Performed By: #### P TT, PT #### [facility] [address], [place] [address] Dr. Felisa Trujillo TROPONIN, HIGH SENSITIVITYon 11-02-2021 HSTROP 8.7 pg/mL Normal 4.0-51.3 [facility] Comment on above: Result Comment: CUT- OFF POINTS HAVE BEEN ESTABLISHED BASED ON THE FOURTH UNIVERSAL DEFINITIONS OF MYOCARDIAL INFARCTION. THE UPPER REFERENCE LIMIT (URL) OF TROPONIN, DEFINED THE 99TH PERCENTILE OF cTnI DISTRIBUTION IN A REFERENCE POPULATION, HAS BEEN CONFIRMED THE DECISION THRESHOLD FOR [place] DIAGNOSIS. Performed By: #### H STROPN, CMP, BNP #### [facility] [address], [place] [address] Dr. Felisa Trujillo Covid-19 PCR ([facility])on SARS-CoV-2 (COVID-19) RNA DUGLAS+probe Ql (Unsp spec) Not detected Normal NOT DETECTED [facility] Comment on above: Result Comment: This test is not yet approved or cleared by the [place] FDA. When there are no FDA-approved or cleared tests available, and other criteria are met, FDA can make tests available under an emergency access mechanism called an Emergency Use Authorization (EUA). The EUA for this test is supported by the Rn Disease Management of Health and Human Service's (HHS's) declaration [...] consistent with SARS-CoV-2. Performed By: #### C VDTB #### [facility] [id number] Felisa Trujillo XR CHEST 2 Von [...] by: MEHNAZ SANTIAGO Date: 2021-09-02 14:39 Normal [facility] Lab - AP Resultson 9 Lab - AP Results [id number]#1.00OT GTIFF Normal [facility] Pathology Sendout Teston Pathology Send Out. See Report Normal [facility] Comment on above: Order Comment: left ring finger , cyst tendon sheath Performed By: #### 2 [id number] ####[facility] (DEFAULT)[address] [place] [address] Coding Summaryon 02-08-2019 Coding Summary CODING DATE: 019 [facility] STATUS: Home PAYOR: Medicare MC APC DESCRIPTION 5112 Level 2 Musculoskeletal Procedures ADMIT DX: REASON FOR VISIT DX: M65.342 Trigger finger, left ring finger FINAL DX: PRINCIPAL: M65.342 Trigger finger, left ring finger SECONDARY: M67.442 Ganglion, left hand J44.9 Chronic obstructive pulmonary disease, unspecified PYMT PROC APC STAT DESCRIPTION DOCTOR NAME DATE 80916 9765 J1 Excision of lesion of Daquan Antunez [...] Cassy Bradley Date Saved: 02/08/2019 11:52 am [facility] Consent Formson 02-05-2019 Consent Forms [id number] [facility] Discharge Instructionson Discharge Instructions [id number] [facility] History and Physicalon 02-05 History and Physical [id number]#1.00OT [facility] MAGR Intraoperative Recordon 02-05-2019 MAGR Intraoperative Record MAGR Intra-Op Record Summary Primary Physician: Daquan Antunez DO Finalized Date/Time: 02/05/19 07:41:01 Pt. Name: SHEY OBRIEN NORMAN /Sex: 1950 FEMALE Med Rec #: [id number] Physician: Daquan Antunez DO Financial #: [id number] Pt. Type: D Room/Bed: / Admit/Disch: 02/04/19 [...] Role Performed Surgeon - Primary Anesthesiologist of Pier Master Assistant Record Time In 02/04/19 15:31:00 02/04/19 15:31:00 02/04/19 15:31:00 Time Out 02/04/19 16:08:00 02/04/19 16:08:00 02/04/19 16:08:00 Procedure Trigger Finger Release Trigger Finger Release Trigger Finger Release Last Modified By: Toshia Plascencia RN, Barbara RN Long, Barbara RN 02/04/19 16:16:05 02/04/19 16:16:05 02/04/19 16:16:05 Entry 4 Entry 5 Case Attendee Paloma Esparza Regina CST Role Performed Scrub Personnel Mobile Development Manager Time In 02/04/19 15:31:00 02/04/19 15:31:00 Time [...] Initial Count Time 02/04/19 15:42:00 Performed By Palmoa Esparza Counts Verification Final Counts Items Included [...] Modify Pick List 02/05/19 07:38 MHBLONG Modify [facility] List 02/05/19 07:40 MHBLONG Modify [facility] Medication Managementon 01-09 Medication Management [id number]#1.00OT [facility] Provider Orderson 02-05-2019 Provider Orders [id number]#1.00OT [facility] Anesthesia Noteon 02-04-2019 Anesthesia Note Patient: SHEY OBRIEN Age: 68 years Sex: FEMALE : 52 [...] Problems Chronic back pain / SNOMED CT 116557659 / Confirmed Former smoker / SNOMED CT 18188036 / Confirmed GERD (gastroesophageal reflux disease) / SNOMED CT 760777878 / Confirmed Scar tissue / SNOMED CT 226656188 / Confirmed Sleep apnea / SNOMED CT 509437513 / Confirmed Histories Family History: No family history items have been selected or recorded. Procedure history: Tonsillectomy (284545675). Epidural injection of lumbar spine using fluoroscopic guidance (2511097315). Social History Alcohol Assessment Use: Current. Beer, [...] rhythm. Review / Management Laboratory Results Plan [employer]#(ASA) physical status classification: Class [...] on: 02/04/2019 15:44 EDT] Alirio Mcclellan MD [facility] Inpatient Patient Summaryon 02-04-2019 Inpatient [place] [address] Patient Discharge Instructions Name: SHEY OBRIEN : 52 Patient Address: [address] [place] [address] Primary Care Provider: Name: LATRELL JACK After you are discharged if you find you have any questions, please, call [phone] ext [phone] to speak to a nurse. Discharge Diagnosis: Trigger finger Prescription Information: If you have been given a prescription for narcotics, seek immediate medical attention if you have any difficulty breathing or any sudden status changes such as confusion and sleepiness. If you or anyone you know is experiencing suicidal thoughts, mental health, alcohol and/or drug addiction problems; contact the [facility] 30/01 Crisis Hotline -Text [id number] gi [phone]. If you received any narcotics, sedation, or [...] business decisions or sign any legal documents [facility] would like to thank you for allowing us to assist you with your healthcare needs. The following includes patient education materials and information regarding your injury/illness. SHEY OBRIEN has been given the following list of follow-up instructions, prescriptions, and patient education materials: Follow-up Instructions With: Address: When: Daquan Antunez [address] [facility], [address] [place] [address] Business (2) 02/12/2019 2:00 PM With: Address: When: LATRELL JACK [address] [place], [place] [id number] Business (1) Medications During the course of [...] awake -DO NOT lift heavy objects or gericare aide teacher forcefully with the affected hand -DO NOT [...] or concerns, please call the office at [phone] or go to the emergency room -Follow [...] for Disease Control and Prevention March 2014 [facility] MAGR Postoperative Recordon 02-04-2019 MAGR Postoperative Record MAGR Phase II Record Summary Primary Physician: Daquan Antunez DO Finalized Date/Time: 02/04/19 17:11:50 Pt. Name: SHEY OBRIEN NORMAN /Sex: 1950 FEMALE Med Rec #: [id number] Physician: Daquan Antunez DO Financial #: [id number] Pt. Type: D Room/Bed: / Admit/Disch: 02/04/19 [...] Stefanie Garibay RN 02/04/19 [facility] MAG[facility] Pre-Op Record Summary Primary Physician: Daquan Antunez DO Finalized Date/Time: 02/04/19 15:37:19 Pt. Name: SHEY OBRIEN /Sex: 1950 FEMALE Med Rec #: [id number] Physician: Daquan Antunez DO Financial #: [id number] Pt. Type: D Room/Bed: / Admit/Disch: 02/04/19 [...] Signed By: Toshia Plascencia RN 02/04/19 15:37 [facility] Operative Report - Surgeon/P shalini 02-04-2019 [...] on: 02/04/2019 16:37 EDT] Daquan Antunez DO [facility] Patient Handouton 02-04-[address] OHARA POST OPERATIVE INSTRUCTIONS FOR FINGER SURGERY/MALLET FINGER REPAIR SURGEONS WRITTEN INSTRUTCTIONS:' -Keep your hand elevated above your elbow for the first 24 hours after surgery and apply an ice bag at intervals for the first 24 hours -Wiggle the unaffected fingers frequently while awake -DO NOT lift heavy objects or gericare aide teacher forcefully with the affected hand -DO NOT [...] or concerns, please call the office at [phone] or go to the emergency room -Follow up as scheduled [facility] Progress Note - Nurseon 01-08 Progress Note - Nurse Spoke with pt regarding arrival time of 1145 and NPO status. Verbalized understanding. 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 Verbalized understanding. [Electronically Signed on: 02/01/2019 14:53 EDT] Kika Akers RN [Verified on: 02/01/2019 14:53 EDT] Kika Akers RN [facility] Coding Summaryon 01-29-2019 Coding Summary CODING DATE: 019 [facility] STATUS: Home PAYOR: Medicare MC APC [...] Cueto Date Saved: 01/29/2019 01:42 pm Normal [facility] .Auto Diff 1on 01-28-2019 Auto [place] % 8 % Normal 1-12 [facility] Comment on above: Performed By: #### 7 [id number], [id number] #### [facility] (DEFAULT) [address] [place] [address] Baso Abs# 0.0 x10 Normal 0.0-0.2 [facility] Comment on above: Performed By: #### 7 [id number], [id number] #### [facility] (DEFAULT) [address] [place] [address] Basophils/100 WBC (Bld) 0.4 % Normal 0.2-2.0 [facility] Comment on above: Performed By: #### 7 [id number], [id number] #### [facility] (DEFAULT) [address] [place] [address] Eos Abs# 0.2 x10 Normal 0.0-0.4 [facility] Comment on above: Performed By: #### 7 [id number], [id number] #### [facility] (DEFAULT) [address] [place] [address] Eosinophils/100 WBC (Bld) 3.5 % Normal 0.9-4.0 [facility] Comment on above: Performed By: #### 7 [id number], [id number] #### [facility] (DEFAULT) [address] [place] [address] Lymphocytes (Bld) [#/Vol] 1.6 x10 Normal 1.3-2.9 [facility] Comment on above: Performed By: #### 7 [id number], [id number] #### [facility] (DEFAULT) [address] [place] [address] 27043 Lymphocytes/100 WBC (Bld) 32 % Normal 14-48 [facility] Comment on above: Performed By: #### 7 [id number], [id number] #### [facility] (DEFAULT) [address] [place] [address] Tom Green Abs# 0.4 x10 Normal 0.0-0.8 [facility] Comment on above: Performed By: #### 7 [id number], [id number] #### [facility] (DEFAULT) [address] [place] [address]25 Neut Abs# 2.8 x10 Normal 1.5-9.2 [facility] Comment on above: Performed By: #### 7 [id number], [id number] #### [facility] (DEFAULT) [address] [place] [address]188 Neutrophils/100 WBC (Bld) 56 % Normal 44-88 [facility] Comment on above: Performed By: #### 7 [id number], [id number] #### [facility] (DEFAULT) [address] [place] [address]85 CBC w/ Auto Diffon 9 Erythrocyte distribution width (RBC) [Ratio] 13.4 % Normal 11.5-15.0 [facility] Comment on above: Performed By: #### 7 [id number], [id number] #### [facility] (DEFAULT) [address] [place] [address] Hematocrit (Bld) [Volume fraction] 40.4 % Normal 33.7-40.4 [facility] Comment on above: Performed By: #### 7 [id number], [id number] #### [facility] (DEFAULT) [address] [place] [address] 82021 Hemoglobin (Bld) [Mass/Vol] 13.9 g/dL Normal 11.3-15.9 [facility] Comment on above: Performed By: #### 7 [id number], [id number] #### [facility] (DEFAULT) [address] [place] [address] 40217 Man Diff? Auto Normal [facility] Comment on above: Performed By: #### 7 [id number], [id number] #### [facility] (DEFAULT) [address] [place] [address]3733 MCH (RBC) [Entitic mass] 31 pg Normal 24-34 [facility] Comment on above: Performed By: #### 7 [id number], [id number] #### [facility] (DEFAULT) [address] [place] [address] 36748 MCHC (RBC) [Mass/Vol] 34 g/dL Normal 26-37 [facility] Comment on above: Performed By: #### 7 [id number], [id number] #### [facility] (DEFAULT) [address] [place] [address]647 MCV (RBC) [Entitic vol] 90 fL Normal 81-100 [facility] Comment on above: Performed By: #### 7 [id number], [id number] #### [facility] (DEFAULT) [address] [place] [address] Platelet mean volume (Bld) [Entitic vol] 10.3 fL High 6.3-10.2 [facility] Comment on above: Performed By: #### 7 [id number], [id number] #### [facility] (DEFAULT) [address] [place] [address] 34325 Platelets (Bld) [#/Vol] 199 x10 Normal 138-427 [facility] Comment on above: Performed By: #### 7 [id number], [id number] #### [facility] (DEFAULT) [address] [place] [address] 45960 RBC (Bld) [#/Vol] 4.47 x10 Normal 3.70-5.30 [facility] Comment on above: Performed By: #### 7 [id number], [id number] #### [facility] (DEFAULT) [address] [place] [address] 19909 WBC (Bld) [#/Vol] 5.1 x10 Normal 3.5-10.5 [facility] Comment on above: Performed By: #### 7 [id number], [id number] #### [facility] (DEFAULT) [address] [place] [address] Vital Signs Date Time Vital Sign Value Performing Clinician Facility 04-29-2024 10:55-0400 Body height 152.4 cm Xavier Boyd MD Work Phone: [facility] 04-29-2024 10:55-0400 Body mass index (BMI) [Ratio] 42.58 kg/m2 Xavier Boyd MD Work Phone: [facility] 04-29-2024 10:55-0400 Body temperature 98.49 [degF] Xavier Boyd MD Work Phone: [facility] 04-29-2024 10:55-0400 Body weight 98.88 kg Xavier Boyd MD Work Phone: [facility] 04-29-2024 10:55-0400 Diastolic blood pressure 65 mm[Hg] Xavier Boyd MD Work Phone: [facility] 04-29-2024 10:55-0400 Heart rate 90 /min Xavier Boyd MD Work Phone: [facility] 04-29-2024 10:55-0400 Systolic blood pressure 144 mm[Hg] Xavier Boyd MD Work Phone: [facility] 03-20-2024 13:23-0400 Diastolic blood pressure 81 mm[Hg] Leos Sarmini [facility] 03-20-2024 13:23-0400 Heart rate 66 /min Leos Sarmini [facility] 03-20-2024 13:23-0400 Mean blood pressure 112 mm[Hg] Leos Sarmini [facility] 03-20-2024 13:23-0400 Respiratory rate 15 /min Leos Sarmini [facility] 03-20-2024 13:23-0400 SaO2% (BldA) [Mass fraction] 94 % Leos Sarmini [facility] 03-20-2024 13:23-0400 Systolic blood pressure 173 mm[Hg] Leos Sarmini [facility] 03-20-2024 13:15-0400 Diastolic blood pressure 78 mm[Hg] Leos Sarmini [facility] 03-20-2024 13:15-0400 Heart rate 64 /min Leos Sarmini [facility] 03-20-2024 13:15-0400 Mean blood pressure 105 mm[Hg] Leos Sarmini [facility] 03-20-2024 13:15-0400 Respiratory rate 13 /min Leos Sarmini [facility] 03-20-2024 13:15-0400 SaO2% (BldA) [Mass fraction] 96 % Leos Sarmini [facility] 03-20-2024 13:15-0400 Systolic blood pressure 159 mm[Hg] Leos Sarmini [facility] 03-20-2024 13:05-0400 Diastolic blood pressure 76 mm[Hg] Leos Sarmini [facility] 03-20-2024 13:05-0400 Heart rate 64 /min Leos Sarmini [facility] 03-20-2024 13:05-0400 Mean blood pressure 99 mm[Hg] Leos Sarmini [facility] 03-20-2024 13:05-0400 Respiratory rate 12 /min Leos Sarmini [facility] 03-20-2024 13:05-0400 SaO2% (BldA) [Mass fraction] 96 % Leos Sarmini [facility] 03-20-2024 13:05-0400 Systolic blood pressure 145 mm[Hg] Leos Sarmini [facility] 03-20-2024 12:58-0400 Body temperature 97.16 [degF] Leos Sarmini [facility] 03-20-2024 12:50-0400 Respiratory rate 15 /min Leos Sarmini [facility] 03-20-2024 12:45-0400 Respiratory rate 18 /min Leos Sarmini [facility] 03-20-2024 11:14-0400 Blood Pressure Location Leos Sarmini [facility] 03-20-2024 11:14-0400 Body temperature 97.7 [degF] Leos Sarmini [facility] 03-20-2024 11:14-0400 Respiratory rate 18 /min Leos Sarmini [facility] 02-26-2024 09:12-0400 Blood Pressure Location Leos Sarmini [facility] 02-26-2024 09:12-0400 Diastolic blood pressure 81 mm[Hg] Leos Sarmini [facility] 02-26-2024 09:12-0400 Heart rate 66 /min Leos Sarmini [facility] 02-26-2024 09:12-0400 Respiratory rate 16 /min Leos Sarmini [facility] 02-26-2024 09:12-0400 Systolic blood pressure 131 mm[Hg] Leos Sarmini [facility] 10-13-2023 09:42-0400 Diastolic blood pressure 80 mm[Hg] Pa NILL [facility] 10-13-2023 09:42-0400 Heart rate 69 /min Pa NILL [facility] 10-13-2023 09:42-0400 Mean blood pressure 102 mm[Hg] Pa NILL [facility] 10-13-2023 09:42-0400 Respiratory rate 15 /min Pa NILL [facility] 10-13-2023 09:42-0400 SaO2% (BldA) [Mass fraction] 97 % Pa NILL [facility] 10-13-2023 09:42-0400 Systolic blood pressure 146 mm[Hg] Pa NILL [facility] 10-13-2023 09:32-0400 Diastolic blood pressure 76 mm[Hg] Pa NILL [facility] 10-13-2023 09:32-0400 Heart rate 67 /min Pa NILL [facility] 10-13-2023 09:32-0400 Mean blood pressure 94 mm[Hg] Pa NILL [facility] 10-13-2023 09:32-0400 Respiratory rate 20 /min Pa NILL [facility] 10-13-2023 09:32-0400 SaO2% (BldA) [Mass fraction] 95 % Pa NILL [facility] 10-13-2023 09:32-0400 Systolic blood pressure 129 mm[Hg] Pa NILL [facility] 10-13-2023 09:27-0400 Diastolic blood pressure 71 mm[Hg] Pa NILL [facility] 10-13-2023 09:27-0400 Heart rate 70 /min Pa NILL [facility] 10-13-2023 09:27-0400 Mean blood pressure 92 mm[Hg] Pa NILL [facility] 10-13-2023 09:27-0400 Respiratory rate 15 /min Pa PALMERL [facility] 10-13-2023 09:27-0400 SaO2% (BldA) [Mass fraction] 96 % Pa PALMERL [facility] 10-13-2023 09:27-0400 Systolic blood pressure 134 mm[Hg] Pa PALMERL [facility] 10-13-2023 09:17-0400 Body temperature 97.16 [degF] Pa PALMERL [facility] 10-13-2023 09:10-0400 Respiratory rate 16 /min Pa PALMERL [facility] 10-13-2023 09:05-0400 Respiratory rate 16 /min Pa PALMERL [facility] 10-13-2023 08:03-0400 Body temperature 97.34 [degF] Pa PALMERL [facility] 08-11-2023 09:53-0500 Body height 160 cm Latrell Jack MD Work Phone: [facility] 08-11-2023 09:53-0500 Body mass index (BMI) [Ratio] 40.39 kg/m2 Latrell Jack MD Work Phone: [facility] 08-11-2023 09:53-0500 Body temperature 97.11 [degF] Latrell Jack MD Work Phone: [facility] 08-11-2023 09:53-0500 Body weight 103.42 kg Latrell Jack MD Work Phone: [facility] 08-11-2023 09:53-0500 Diastolic blood pressure 70 mm[Hg] Latrell Jack MD Work Phone: [facility] 08-11-2023 09:53-0500 Heart rate 94 /min Latrell Jack MD Work Phone: [facility] 08-11-2023 09:53-0500 SaO2% (BldA) [Mass fraction] 97 % Latrell Jack MD Work Phone: [facility] 08-11-2023 09:53-0500 Systolic blood pressure 140 mm[Hg] Latrell Jack MD Work Phone: [facility] Healthcare Encounters Encounter Date Encounter Type Care Provider Facility Start: 05-06-2024 End: 05-06-2024 ambulatory Talat Arguello MD Facility:[facility] Start: 05-04-2024 End: 05-06-2024 ambulatory Xavier Boyd MD Work Phone: [facility] Comment on above: 07.24.24 Cure (Lap P araesophageal Hernia Repair/EGD 4 hours los 1) Start: 05-04-2024 End: 05-06-2024 Preprocedural examination done Xavier Boyd MD Work Phone: [facility] Start: 04-29-2024 End: 04-29-2024 ambulatory XAVIER BOYD Facility:[facility] Start: 04-29-2024 End: 04-29-2024 Office outpatient new 45 minutes Xavier Boyd MD Work Phone: General Surgery Comment on above: Paraesophageal herni a (Primary Dx) Start: 04-22-2024 End: 04-22-2024 Telephone encounter Ashlie Calderon MA General Surgery Start: 04-15-2024 End: 04-15-2024 ambulatory Talat Arguello MD Facility:[facility] Start: 04-11-2024 End: 04-11-2024 Patient encounter procedure Mao Morrow PhD Work Phone: [facility] Comment on above: Memory loss (Primary Dx); Word finding difficulty; EDWIN on CPAP; Other insomnia; Other chronic pain; Generalized anxiety disorder (CMS/HCC); Severe episode of recurrent major depressive disorder, without psychotic features (HCC) ([facility]/HCC) Start: 04-11-2024 End: 04-11-2024 ambulatory LATRELL JACK Not Available Start: 03-26-2024 End: 03-26-2024 ambulatory MAO DENGREGORIA Not Available Start: 03-26-2024 End: 03-26-2024 ambulatory Leos Talal Sarmini [place] Start: 03-25-2024 End: 03-25-2024 ambulatory DIOMEDES MATUTE Not Available Start: 03-20-2024 End: 03-20-2024 ambulatory Leos Talal Sarmini [place] Start: 03-20-2024 End: 03-20-2024 Patient encounter procedure Leos Talal Sarmini [facility] Start: 03-07-2024 End: 03-07-2024 ambulatory DIOMEDES JUJU Not Available Start: 02-26-2024 End: 02-26-2024 ambulatory Leos Talal Sarmini Facility:[facility] Start: 02-26-2024 End: 02-26-2024 Patient encounter procedure Leos Talal Sarmini [facility] Start: 02-13-2024 ambulatory Pa NILL Facility:[facility] Start: 02-09-2024 End: 02-09-2024 ambulatory LATRELL JACK Not Available Start: 10-13-2023 End: 10-13-2023 ambulatory Pa R NILL [place] Start: 10-13-2023 End: 10-13-2023 Patient encounter procedure Pa R NILL [facility] Start: 09-12-2023 End: 09-12-2023 ambulatory Pa R NILL Facility:[facility] Start: 09-05-2023 ambulatory Pa NILL Facility:[facility] Start: 08-11-2023 Teja Jack MD Work Phone: [...] 09-09-2021 Encounter for prepro cedural laboratory examination [facility] Start: 09-07-2021 End: 09-07-[address] LATRELL JACK Facility:[facility] Start: 09-07-2021 End: 09-07-2021 Encounter for preprocedural laboratory examination DR LATRELL JACK Facility:[facility] Start: 09-03-2021 Encounter for prepro cedural cardiovascular examination [facility] Start: 09-02-2021 End: 09-03-[address] LATRELL JACK Facility:[facility] Start: 09-02-2021 End: 09-03-2021 Encounter for preprocedural cardiovascular examination DR LATRELL JACK Facility:[facility] Procedures Date Procedure Procedure Detail Performing Clinician Start: 03-20-2024 Esophagogastroduodenoscopy Katie george Start: 11-28-2023 Mammography Mao Morrow PhD Work Phone: Start: 10-13-2023 Colonoscopy Mao Morrow PhD Work Phone: Start: 10-13-2023 Colonoscopy Pa NILL Hand tendon repaired Pa NILL Open reduction of fr acture of ankle with internal fixation Pa NILL Repair of meniscus Pa N ILL Tonsillectomy Pa NILL Plan of Treatment Date Care Activity Detail Author Start: 10-12-2033 Screening for malign ant neoplasm of colon [facility] Start: 09-21-2026 RSV Vaccine (1 - 1-d ose 75+ series) RSV Vaccine (1 - 1-dose 75+ series) [facility] Start: 11-27-2024 Screening for malign ant neoplasm of breast Mammogram [facility] Start: 07-24-2024 Subsequent hospital visit by physician 07/24/2024 Hospital Encounter Admitting [address] [place] [address] Xavier Boyd MD [address] [place], [place] [id number] Preoperative examination [Z01.818], Paraesophageal hernia [K44.9] Admitting Comment on above: Preoperative examina tion [Z01.818], Paraesophageal hernia [K44.9] Start: 06-29-2024 End: 10-29-2024 aPTT in Platelet poor plasma by Coagulation assay ACTIVATED PARTIAL THROMBOPLASTIN TIME Lab Routine Preoperative examination Paraesophageal hernia Abnormal coagulation profile Expected: 06/29/2024, Expires: 10/29/2024 [facility] Comment on above: Expected: 06/29/2024 , Expires: 10/29/2024 Start: 06-29-2024 End: 10-29-2024 CBC W Auto Differential panel - Blood COMPLETE BLOOD COUNT AND DIFFERENTIAL Lab Routine Preoperative examination Paraesophageal hernia Expected: 06/29/2024, Expires: 10/29/2024 [facility] Comment on above: Expected: 06/29/2024 , Expires: 10/29/2024 Start: 06-29-2024 End: 10-29-2024 Comprehensive metabolic 2000 panel - Serum or Plasma COMPREHENSIVE METABOLIC PANEL Lab Routine Preoperative examination Paraesophageal hernia Expected: 06/29/2024, Expires: 10/29/2024 [facility] Comment on above: Expected: 06/29/2024 , Expires: 10/29/2024 Start: 06-29-2024 End: 10-29-2024 PT panel - Platelet poor plasma by Coagulation assay PROTHROMBIN TIME Lab Routine Preoperative examination Paraesophageal hernia Abnormal results of liver function studies Expected: 06/29/2024, Expires: 10/29/2024 [facility] Comment on above: Expected: 06/29/2024 , Expires: 10/29/2024 Start: 06-29-2024 End: 10-29-2024 TYPE AND SCREEN,30 DAY TYPE AND SCREEN,30 DAY Blood Bank Routine Preoperative examination Paraesophageal hernia Expected: 06/29/2024, Expires: 10/29/2024 [facility] Comment on above: Expected: 06/29/2024 , Expires: 10/29/2024 Start: 05-30-2024 End: 05-30-2024 Patient encounter procedure 05/30/2024 3:40 PM EST Office Visit [facility] [address] [place] [phone] Sandra Arcos NP [address] [place] [address] [facility] Start: 05-15-2024 End: 05-15-2024 Patient encounter procedure 05/15/2024 10:00 AM EST Office Visit [facility] [address] [place] [address] Latrell Jack MD [address] [place] [address] [facility] Start: 04-29-2024 End: 04-29-2024 Patient encounter procedure 04/29/2024 11:00 AM EDT Office Visit General Surgery [address] [address] Xavier Boyd MD [address] [place] [address] Hiatal Hernia General Surgery Comment on above: Hiatal Hernia Start: 03-10-2024 Covid-19 Vaccine ( season) Covid-19 Vaccine ( season) [facility] Start: 03-10-2024 Covid-19 Vaccine ( season) Covid-19 Vaccine () [facility] Start: 03-10-2024 Influenza vaccination Influenza Vacc ine (#1) [facility] Start: 02-09-2024 End: 02-09-2024 Patient encounter procedure 02/09/2024 9:45 AM EDT Office Visit [facility] [address] [place] [address] Latrell Jack MD [address] [place] [address] [facility] Start: 08-11-2023 End: 08-11-2024 Basic metabolic 1998 panel - Serum or Plasma Basic metabolic panel Lab Routine Encounter for long-term (current) use of medications Expected: 08/11/2023 (Approximate), Expires: 08/11/2024 [facility] Comment on above: Expected: 08/11/2023 (Approximate), Expires: 08/11/2024 Start: 08-11-2023 End: 08-11-2024 CBC W Auto Differential panel - Blood CBC and differential Lab Routine Encounter for long-term (current) use of medications Expected: 08/11/2023 (Approximate), Expires: 08/11/2024 [facility] Comment on above: Expected: 08/11/2023 (Approximate), Expires: 08/11/2024 Start: 08-11-2023 End: 08-11-2024 Hemoglobin A1c measurement Hemoglobin A1c Lab Routine Morbid obesity due to excess calories (CMS/HCC) Expected: 08/11/2023 (Approximate), Expires: 08/11/2024 [facility] Work Phone: Comment on above: Expected: 08/11/2023 (Approximate), Expires: 08/11/2024 Start: 08-11-2023 End: 08-11-2024 Hepatic function 2000 panel - Serum or Plasma Hepatic function panel Lab Routine Encounter for long-term (current) use of medications Expected: 08/11/2023 (Approximate), Expires: 08/11/2024 [facility] Comment on above: Expected: 08/11/2023 (Approximate), Expires: 08/11/2024 Start: 08-11-2023 End: 08-11-2024 Lipid 1996 panel - Serum or Plasma Lipid panel Lab Routine Dyslipidemia (CMS/HCC) Expected: 08/11/2023 (Approximate), Expires: 08/11/2024 [facility] Comment on above: Expected: 08/11/2023 (Approximate), Expires: 08/11/2024 Start: 08-11-2023 End: 08-11-2024 Thyrotropin [Units/volume] in Serum or Plasma TSH Lab Routine Morbid obesity due to excess calories (CMS/HCC) Expected: 08/11/2023 (Approximate), Expires: 08/11/2024 [facility] Comment on above: Expected: 08/11/2023 (Approximate), Expires: 08/11/2024 Start: 08-11-2023 End: 08-11-2023 Patient encounter procedure 08/11/2023 9:45 AM EST Office Visit [facility] [address] [place] [address] Latrell Jack MD [address] [place] [id number] Arrived [facility] Comment on above: Arrived Start: 07-10-2023 Advance Directive Discussion Advance Directive Discussion [facility] Start: 03-10-2023 Influenza vaccination Influenza Vacc ine (#1) [facility] Start: 09-21-2016 Screening for osteoporosis Bone Density Screening [facility] Start: 09-21-2001 Shingrix Vaccine (1 of 2) Shingrix Vaccine (1 of 2) [facility] Start: 09-21-1996 Diabetes Screening Diabetes Screenin g [facility] Start: 09-21-1996 Lipid panel Lipid Screening [facility] Start: 09-21-1996 Screening for malign ant neoplasm of colon [facility] Start: 1991 Screening for malign ant neoplasm of breast [facility] Start: 09-21-1970 Urine microalbumin profile DTaP,Tdap,Td Vaccine (1 - Tdap) [facility] Start: 09-21-1969 Anxiety Screening Anxiety Screening [facility] Start: 09-21-1969 Depression Screening Depression Scre ening [facility] Start: 09-21-1969 Hepatitis C screening Hepatitis C Sc reening [facility] Start: 1950 Screening for malign ant neoplasm of colon [facility] End: 05-04-2025 ECG COMPLETE ECG COMPLETE ECG Routine Preoperative examination Paraesophageal hernia 1 Occurrences starting 05/06/2024 until 05/04/2025 [facility] Comment on above: 1 Occurrences starti ng 05/06/2024 until 05/04/2025 Laps rpr paraesphgl hrna incl fundplsty w/mesh LAPAROSCOPIC RPR PARAESOPHAGEAL HERNIA W/O FUNDOPLASTY W/ MESH Preoperative examination Paraesophageal hernia [facility] REFER FOR ADMIT INTERVIEW REFER FOR ADMIT INTERVIEW Procedures Routine Preoperative examination Paraesophageal hernia Ordered: 05/06/2024 [facility] Work Phone: Comment on above: Ordered: 05/06/2024 Immunizations Immunization Date Immunization Notes Care Provider Fa cility 04-09-2023 influenza virus vacc ine, unspecified formulation Pa WEBB [facility] [place] 05-03-2022 SARS-CoV-2 (COVID-19 ) [id number] Pa WEBB [facility] 05-03-2022 influenza virus vacc ine, unspecified formulation Latrell Jack MD Work Phone: [facility] 11-25-2021 pneumococcal conjuga te vaccine, 13 valent Mao Morrow PhD Work Phone: [facility] 04-12-2021 influenza virus vacc ine, unspecified formulation Leos Sarmini [facility] 04-12-2021 SARS-CoV-2 (COVID-19 ) mRNA BNT-162b2 vax Pa NILL [facility] Comment on above: Result Comment: 2023: [id number] 09-14-2020 SARS-CoV-2 (COVID-19 ) mRNA BNT-162b2 vax [employer] [facility] Comment on above: Result Comment: 2023: [id number] 08-27-2020 SARS-CoV-2 (COVID-19 ) mRNA BNT-162b2 vax [employer] [facility] Comment on above: Result Comment: 2023: [id number] 06-16-2020 influenza virus vacc ine, unspecified formulation Leos Sarmini [facility] 05-16-2019 influenza virus vacc ine, unspecified formulation Leos Sarmini [facility] 05-16-2019 pneumococcal polysaccharide vaccine, 23 valent Leos Sarmini [facility] 05-12-2018 influenza virus vacc ine, unspecified formulation Leos Sarmini [facility] 01-31-2018 pneumococcal conjuga te vaccine, 13 valent Leos Sarmini [facility] 05-10-2016 influenza virus vacc ine, unspecified formulation Katie Hairston [facility] 04-16-2015 influenza virus vacc ine, unspecified formulation Katie Hairston [facility] Payers Date Payer Category Payer Private Health Insurance [id number] 2016 Medicare [id number] 2016 Unknown 1959 Medicare [id number] 1959 Private Health Insurance [id number] 1951 Unknown [id number] 2.16.84 0.1.230050.3.579.2.593 1951 Unknown [id number] 2.16.84 0.1.051560.3.579.2.593 1950 Unknown [id number] 2.16.84 0.1.704213.3.579.2.593 1951 Unknown [id number] 2.16.84 0.1.809002.3.579.2.593 1951 Unknown [id number] 2.16.84 0.1.013698.3.579.2.593 1951 Unknown [id number] 2.16.84 0.1.180361.3.579.2.593 1951 Unknown [id number] 2.16.84 0.1.166480.3.579.2.593 1951 Unknown [id number] 2.16.8 40.1.112960.3.579.2.727 1950 Unknown [id number] 2.16.8 40.1.019691.3.579.2.727 1951 Unknown [id number] 2.16.8 40.1.829751.3.579.2.727 1950 Unknown [id number] 2.16.8 40.1.955125.3.579.2.727 1951 Unknown [id number] 2.16.8 40.1.243067.3.579.2.727 1951 Unknown [id number] 2.16.84 0.1.447362.3.579.2.1259 1951 Unknown [id number] 2.16.84 0.1.222662.3.579.2.1259 1951 Unknown [id number] 2.16.84 0.1.130378.3.579.2.1259 1951 Unknown [id number] 2.16.84 0.1.151401.3.579.2.1259 1951 Unknown [id number] 2.16.84 0.1.613613.3.579.2.1259 1951 Unknown [id number] 2.16.84 0.1.149697.3.579.2.1259 1951 Unknown [id number] 2.16. 840.1.685336.3.579.2.196 1950 Unknown [id number] 2.16. 840.1.417099.3.579.2.196 Social History Date Type Detail Facility Start: 08-05-2023 End: 03-07-2024 Tobacco smoking status DEIS Ex-smoker [facility] Start: 07-10-1967 End: 01-08-2012 History of tobacco use Current smoker [facility] Start: 07-10-1967 End: 01-08-2012 History of tobacco use Cigarette Smoker [facility] Start: 08-05-2023 End: 04-29-2024 Cigarettes smoked current (pack per day) - Reported 1 [facility] Start: 08-05-2023 End: 04-29-2024 Tobacco use panel [facility] Start: 1950 Sex Assigned At Not on file [facility] Start: 08-11-2023 End: 03-07-2024 Tobacco use and exposure Smokeless tobacco non-user [facility] Tobacco smoking status Never [facility] [place] Start: 03-07-2024 Alcoholic beverage intake Current drinker [...] per day [facility] unknown [facility] Start: 04-23-2024 Gender identity Identifies as female gender (finding) [facility] Functional Status Date Assessment Result Facility 03-20-2024 Functional Status N/A [facility] 02-26-2024 Functional Status N/A [facility] 10-13-2023 Functional Status N/A [facility] Clinical Notes 09-10-2021 to 04-29-2024 Xavier Boyd MD - 04/29/2024 12:08 PM Yan Bethea - 04/29/2024 11:16 AM Diomedes Sawant MA - 04/29/2024 10:50 AM Diomedes Sawant MA - 04/29/2024 10:50 AM EDTRadiology Note Date & Type Note Facility 04-29-2024 Note HNO ID: [id number] Author: XAVIER BOYD MD Service: ? Author Type: Physician Type: Progress Notes Filed: 04/29/2024 12:10 Note Text: Consultation requested by Dr. Latrell Jack for an opinion regarding hiatal hernia. My final recommendations will be communicated back to the requesting physician by way of shared medical record or letter via US mail. Shey Obrien is a 73 year old female who [...] blinded, parallel group trial IRB NO.: #[id number] WASH HOUSE WORKER: aP Prakash MD COORDINATOR/Research Nurse/Network Communications Engineer: Abdelrahman He MD Phone/email: [phone], [email or web address] Consenting was performed in person prior to [...] CRITERIA Yes No 1. The patient lacks Chinese language fluency or cannot understand the consent form/study procedures [] [x] 2. The patient is [] [x] 3. The patient has a BMI >45 [] [x] 4. The patient has undergone previous hiatal hernia repair [] [x] 5. The patient will undergo paraesophageal hernia repair with a concurrent bariatric procedure to reduce stomach volume [] [x] [facility] 04-29-2024 History of Present illness Narrative Consultation requested by Dr. Latrell Jack for an opinion regarding hiatal hernia. My final recommendations will be communicated back to the requesting physician by way of shared medical record or letter via US mail. Shey Obrien is a 73 year old female who [...] blinded, parallel group trial IRB NO.: #[id number] WASH HOUSE WORKER: Pa Prakash MD COORDINATOR/Research Nurse/Network Communications Engineer: Abdelrahman He MD Phone/email: [phone], [email or web address] Consenting was performed in person prior to [...] CRITERIA Yes No 1. The patient lacks Chinese language fluency or cannot understand the consent form/study procedures [] [x] 2. The patient is [] [x] 3. The patient has a BMI >45 [] [x] 4. The patient has undergone previous hiatal hernia repair [] [x] 5. The patient will undergo paraesophageal hernia repair with a concurrent bariatric procedure to reduce stomach volume [] [x] [facility] - HISTORY AND PHYSICAL SUBJECTIVE: Chief Complaint: Paraesophageal hernia HPI: Shey Obrien is a 73 year old female who [...] uploaded. Large Type III PEH. ASSESSMENT/PLAN: chani Obrien is a 73 year old female who [...] MD General Surgery documented in this encounter [facility] 04-29-2024 Note HNO ID: [id number] Author: YAN MOSER, ? Service: ? Author Type: Physician Type: Progress Notes Filed: 04/29/2024 12:10 Note Text: [facility] - HISTORY AND PHYSICAL SUBJECTIVE: Chief Complaint: Paraesophageal hernia HPI: Shey Obrien is a 73 year old female who [...] uploaded. Large Type III PEH. ASSESSMENT/PLAN: chani Obrien is a 73 year old female who [...] Consents obtained Yan Moser MD General Surgery [facility] 04-29-2024 Nurse Note What is the reason for your visit today? Consult Who is your referring physician? Katie Hairston Are you having poor oral intake? YES Have you had unintentional weight loss of 15 lbs/7 Kg in the last 3-6 months? NO Bowels: soft, more frequent Wound: none Temperature: No Drains: No [facility] 04-29-2024 Nurse Note What is the reason for your visit today? Consult Who is your referring physician? Leos Tory Are you having poor oral intake? YES Have you had unintentional weight loss of 15 lbs/7 Kg in the last 3-6 months? NO Bowels: soft, more frequent Wound: none Temperature: No Drains: No documented in this encounter [facility] 04-22-2024 Telephone encounter Note Spoke with PT she state no prior surgeries [facility] 04-22-2024 Miscellaneous Notes Spoke with PT she state no prior surgeries documented in this encounter [facility] 04-11-2024 History of Present illness Narrative Images from the original note were not included. Neuropsychology Mao Morrow, PhD NEUROPSYCHOLOGICAL EVALUATION Shey Obrien is a 73 y.o. female referred for [...] No history of alcohol/substance abuse. Reformed smoker. [place] language Chinese. Completed high school education as well as some college. Described self as a C student. 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 Motor/Speed of Processing: Left-handed. Train Examiner strength 31st %ile with left-hand, 18th %ile [...] Learning of a word list 58th %ile (6-1-56-10-12), delayed recall 50th %ile. Recognition discriminability 69th [...] Please contact me with any questions at [phone]. documented in this encounter [facility] 03-27-2024 Note Endoscopic Procedure Report - Other Patient: SHEY OBRIEN Age: 73 years Sex: Female : 1950 Associated Diagnoses: None Author: Tory OLIVO, Katie Torres Preoperative Information Indication for [...] 1 tab, Oral, Daily Flonase 0.05 mg/inh [place]: 2 spray(s), Nasal, Daily, Refill(s) 0, Dry [...] a day (at bedtime) Flonase 0.05 mg/inh [place] 2 spray(s), Nasal, Daily losartan 25 mg [...] All Problems HTN (hypertension) / SNOMED CT 4583019634 / Confirmed Chronic obstructive pulmonary disease / SNOMED CT 59946091 / Confirmed Insomnia / SNOMED CT 522517088 / Confirmed Seasonal allergic rhinitis / SNOMED CT 744783361 / Confirmed Dyslipidemia / SNOMED CT 7772853070 / Confirmed BMI 39.0-39.9,adult / SNOMED CT 658809454 / Confirmed Morbid obesity / SNOMED CT 501221721 / Confirmed GERD (gastroesophageal reflux disease) / SNOMED CT 958474534 / Confirmed Hiatal hernia / SNOMED CT 038628019 / Confirmed EDWIN (obstructive sleep apnea) / SNOMED CT 571092757 / Confirmed Lower extremity edema / SNOMED CT 352558201 / Confirmed TIA (transient ischemic attack) / SNOMED CT 587087183 / Confirmed Screening for malignant neoplasm of colon / SNOMED CT 256367544 / Confirmed Dysphagia / SNOMED CT 59739337 / Confirmed Histories Past Medical History: Resolved Hernia (309216088): Resolved. Sleep apnea (739568527): Resolved. Family History: Father Alcoholism Primary malignant neoplasm of lung COPD Mother Cardiac arrest Alzheimer's disease Procedure history: Colonoscopy (629834940) on 10/13/2023 at 73 Years. ORIF - Open reduction of fracture of ankle with internal fixation ([id number]). Meniscal repair (020942810). Tonsillectomy (484972077). Hand tendon repaired (213012876). Social History Social & Psychosocial Habits Alcohol [...] Impression and Plan Impression: DYSPHAGIA Plan: -EGD [facility] Comment on above: Result Comment: mary anne ravin folder Electronically Signed By: Tory OLIVO, Katie Torres\.br\Date and Time Signed: 03/20/24 [...] Follow these instructions at home: Medicines Take xcux-zqg-wwuagxp and prescription medicines only as told by [...] or drinks. ?Garlic or onions. ?Spicy foods. ?Cabell fruits. ?Tomato-based foods. ?Fatty or fried foods. [...] provider. Document Revised: 01/09/2023 Document Reviewed: 01/09/2023 [employer] Patient Education 2023 [email or web address] 03/20/2024 13:07:56 Gastritis, Adult, Tnzl-mu-Tfnn Gastritis, Adult Gastritis is irritation and swelling [...] Follow these instructions at home: Medicines Take educ-zjo-znpatru and prescription medicines only as told by [...] provider. Document Revised: 10/30/2021 Document Reviewed: 10/30/2021 [employer] Patient Education 2023 [email or web address]. 03/20/2024 13:07:48 Hiatal Hernia Hiatal Hernia A [...] reduce GERD symptoms. Medicines. These may include: ?Uirx-shu-rlwxruh antacids. ?Medicines that make your stomach empty [...] may include: ?Fatty foods, like fried foods. ?Cabell fruits, like oranges or lemon. ?Other foods [...] Do not drink alcohol. General instructions Take akfs-gsl-esqggje and prescription medicines only as told by [...] provider. Document Revised: 08/23/2022 Document Reviewed: 08/23/2022 [employer] Patient Education 2023 [email or web address]. 03/20/2024 13:07:46 Endoscopy, Care After Procedure [facility] [place] Endoscopy Care After Procedure Please [...] Document Re-Released: 12/18/2006 [employer] Patient Information 2009 [employer]. Follow Up Care 02/26/2024 09:52:05 With:Tory OLIVO, SENAIT Sifuentes, [facility] Address: When: Unknown Comments:Call for any problems. Office will call to schedule follow up appointment [facility] 03-20-2024 Evaluation + Plan note Future Scheduled TestsXR Esophagus 03/20/24 [facility] 03-20-2024 Note Patient Education - Text Endoscopy [...] Document Re-Released: 12/18/2006 ExitCare? Patient Information ?2009 [employer]. Gastroenterology Hiatal Hernia A hiatal hernia occurs [...] symptoms. ? Medicines. These may include: ? Xtvm-dba-qozutjs antacids. ? Medicines that make your stomach [...] Avoid putting pressu (more content not included)... [facility] 03-20-2024 Note Endoscopic Procedure Report - Other Patient: SHEY OBRIEN Age: 73 years Sex: Female : 1950 [...] jpg Rec1_hd_video____[id number]. jpg Rec1_hd_video____15_326. jpg Rec1_hd_video____14_566. jpg Rec1_hd_video___[id number]. jpg . Post-Procedure Complications: none. Estimated blood [...] surgery referral is indicated, will be ordered [facility] Comment on above: Result Comment: Elec tronically Signed By: Tory OLIVO, Katie Torres\.br\Date and Time Signed: 03/20/24 12:58 EDT Other Comment: Samreen dueñas Attachment - attachment storage system not supported [id number] Can be viewed in source systemMissing Attachment - attachment storage system not supported [id number] Can be viewed in source systemMissing Attachment - attachment storage system not supported [id number] Can be viewed in source systemMissing Attachment - attachment storage system not supported [id number] Can be viewed in source systemMissing Attachment - attachment storage system not supported [id number] Can be viewed in source systemMissing Attachment - attachment storage system not supported [id number] Can be viewed in source system 03-20-2024 Note Endoscopic Procedure Report - Other Patient: SHEY OBRIEN Age: 73 years Sex: Female : 1950 Associated Diagnoses: None Author: Tory OLIVO, Katie Torres Preoperative Information Indication for [...] 1 tab, Oral, Daily Flonase 0.05 mg/inh Dallas: 2 spray(s), Nasal, Daily, Refill(s) 0, Dry [...] a day (at bedtime) Flonase 0.05 mg/inh Dallas 2 spray(s), Nasal, Daily losartan 25 mg [...] All Problems HTN (hypertension) / SNOMED CT 7780284856 / Confirmed Chronic obstructive pulmonary disease / SNOMED CT 85031311 / Confirmed Insomnia / SNOMED CT 608017338 / Confirmed Seasonal allergic rhinitis / SNOMED CT 773170954 / Confirmed Dyslipidemia / SNOMED CT 9895988331 / Confirmed BMI 39.0-39.9,adult / SNOMED CT 841981581 / Confirmed Morbid obesity / SNOMED CT 336188109 / Confirmed GERD (gastroesophageal reflux disease) / SNOMED CT 129072559 / Confirmed Hiatal hernia / SNOMED CT 207911242 / Confirmed EDWIN (obstructive sleep apnea) / SNOMED CT 900143887 / Confirmed Lower extremity edema / SNOMED CT 927928231 / Confirmed TIA (transient ischemic attack) / SNOMED CT 138026990 / Confirmed Screening for malignant neoplasm of colon / SNOMED CT 181897550 / Confirmed Dysphagia / SNOMED CT 95658107 / Confirmed Histories Past Medical History: Resolved Hernia (705980203): Resolved. Sleep apnea (271102660): Resolved. Family History: Father Alcoholism Primary malignant neoplasm of lung COPD Mother Cardiac arrest Alzheimer's disease Procedure history: Colonoscopy (941433320) on 10/13/2023 at 73 Years. ORIF - Open reduction of fracture of ankle with internal fixation (954971501259441). Meniscal repair (705882762). Tonsillectomy (841861764). Hand tendon repaired (144877187). Social History Social & Psychosocial Habits Alcohol [...] Impression and Plan Impression: DYSPHAGIA Plan: -EGD [facility] Comment on above: Result Comment: Elec tronically Signed By: Tory OLIVO, Katie Torres\.br\Date and Time Signed: 03/20/24 12:47 EDT 10-16-2023 Note [id number]#1.00TIFF [facility] 10-13-2023 Evaluation + Plan note Extrac clarke from: Title:ANES Post-operative Note - General Author: Shaji Bethea Jr., DO Date:10/13/23 Plan Transfer/Discharge: Transfer/Discharge Discharge when meets criteria ( From PACU to Ambulatory Surgery Unit, and To home ). Extracted from: Title:ANES Pre-operative Note - Endo Author:Shaji Mendoza Jr., DO Date:10/13/23 Plan [employer] (ASA) physical status classification: Class III. Anesthetic Preoperative Plan: Anesthesia General, and -TIVA. [facility]04-05-2024 Hospital Discharge instructions Patient Education 10/13/2023 09:31:42 Colonoscopy, Care After Surgery Salam (CUSTOM) Colonoscopy Care After Surgery Please read the instructions outlined below and refer to this sheet in the next few weeks. These discharge instructions provide you with general information on caring for yourself after you leave thehospital. Your doctor may also give you specific [...] Up Care 09/12/2023 10:17:58 With:Pa WEBB Address: [address] [place] [address], [address] [place] [id number] Business (1) When: only if needed [facility]04-05-2024 NotePatient: SHEY OBRIEN Age: 73 years Sex: Female : 1950 Associated Diagnoses: None Author: Pa WEBB MD Subjective no changes to & PFOhioHealth [facility] HospitalComment on above:Result Comment: Electronically Signed By: Pa WEBB MD\.br\Date and Time Signed: 10/13/23 09:45 [id number] NoteChief Complaint consultation for colonoscopy [facility] Staff 72 year old female presents on [...] a day (at bedtime) Flonase 0.05 mg/inh [place], 2 spray(s), Nasal, Daily losartan 25 mg [...] Alcoholism: Father. Alzheimer's di (more content not included)...[facility]Result Comment: Electronically Signed By: TRACEY OLIVO, Pa Lynn\Date and Time Signed: 09/12/23 10:16 [id number] History of Present illness Narrative* Latrell Jack [...] 9:45 AM EST Subjective Patient ID: Shey Obrien is a 72 y.o. female who presents [...] referral to General Surgery [facility] [id number] NoteEXAMINATION: XR CHEST 1 V HISTORY: SHORTNESS [...] Electronically authenticated by: MEHNAZ SANTIAGO Date: 2021-11-02 16:39[facility]03-04-2022 NotePROCEDURE: XR ANKLE RT MIN 3 [...] Electronically authenticated by: WILLARD ANAND Date: 2021-09-10 09:02[facility]03-04-2022 NotePROCEDURE: XR ANKLE RT 2V COMPARISON: 03/02/2020. HISTORY: Pain FINDINGS: 35 seconds of fluoroscopy. 5 fluoroscopic images Interval removal of internal fixation hardware. Components of 2 fractured screws across the tibiofibular syndesmosis remain on image #5 IMPRESSION: Removal of lateral fibular plate and screws Electronically authenticated by: WILLARD ANAND Date: 2021-09-10 08:30[facility] note Future Appointments Appointment Date:03/20/2024 12:15:00 PM Scheduled Provider: Location:[facility] Surgical Services Appointment Type:Surgery FT [facility] Evaluation note* Diagnosis [...] 40.0-44.9, adult (Z68.41) documented in this encounter [facility]* Diagnosis Memory loss- Primary Word finding difficulty EDWIN on CPAP Other insomnia Other chronic pain Generalized anxiety disorder (CMS/HCC) Generalized anxiety disorder Severe episode of recurrent major depressive disorder, 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) documented in this encounter [facility]* Diagnosis Paraesophageal hernia- Primary Diaphragmatic hernia without mention of obstruction or gangrene [facility] Diagnosis Preoperative examination- Primary Preoperative examination, unspecified Paraesophageal hernia Diaphragmatic hernia without mention of obstruction or gangrene Abnormal results of liver function studies Nonspecific abnormal results of liver function study Abnormal coagulation profile [facility] Narrative No data available for this section [facility] No data available for this section [facility] Progress note No data available for this section [facility] (narrative)* Consultation (Routine) - Pending Review Specialty Diagnoses / Procedures Referred By Contac t Referred To Contact General Surgery Diagnoses Screening for colon cancer Procedures ID OFFICE/OUTPATIENT NEW HIGH MDM 60 MINUTES Latrell Jack MD [address] [facility] [address] Pa Webb MD [address] [place] [address] Referral ID Status Reason Start Date Expiration Date Visits Requested Visits Authorized [id number] Pending Review Specialty Services Required 08/11/2023 02/07/2024 [...] Advanced Directives Records Found Hospital Course Note [facility] SURGERY Clinical Discharge Summary PERSON INFORMATION Name SHEY OBRIEN Age 68 Years 52 Sex FEMALE Language Chinese PCP LATRELL JACK Marital Status Single Med Service Ambulatory Surgery Acct# Arrival 02/04/19 11:44:00 Visit Reason SURGERY - RELEASE TRIGGER FINGER LEFT RING FINGER AND E/O CYST LEFT RING FINGER Acuity LOS 012 05:38 Address: [address] [place] [id number] Comment: PROVIDER INFORMATION VITALS INFORMATION Vital Sign [...] (more content not included)... Note Patient: SHEY OBRIEN Age: 68 years Sex: FEMALE : [birth year] [...] not included)... Procedure Findings Note Patient: SHEY OBRIEN Age: 68 years Sex: FEMALE : [birth year] [...] from PACU when (more content not included)... Reason for Referral Specialty Diagnoses / Procedures Referred By Pedroac t Referred To Contact Diagnoses Preoperative examination Paraesophageal hernia Procedures REFER TO [facility] - PREOPERATIVE OPTIMIZATION OFFICE/OUTPATIENT NEW HIGH MDM 60 MINUTES Katarzyna Carter APRN.CELL TENDER [address] [place] [address] Referral ID Status Reason Start Date Expiration Date Visits Requested Visits Authorized [id number] Authorized PCP Requested Referral 4 05/04/2025 1 1 Specialty Diagnoses / Procedures Referred By Joan junior Referred To [facility] Diagnoses Preoperative examination Paraesophageal hernia Procedures ECG COMPLETE ECG ROUTINE ECG W/LEAST 12 LDS W/I&R Katarzyna Carter, LISSETTE.CELL TENDER [address] [place] [address] [facility] [address] [place] [id number] Referral ID Status Reason Start Date Expiration Date Visits Requested Visits Authorized [id number] New Request Auto-Generat ed Referral 4 05/04/2025 1 1 Additional Source Comments INFORMATION SOURCE (unrecogn ized section and content) DATE CREATED AUTHOR 02/17/2019 [facility] DATE CREATED AUTHOR AUTHOR'S ORGANIZ ATION 08/03/2022 [facility] DATE CREATED AUTHOR AUTHOR'S ORGANIZ ATION 03/28/2024 [facility] DATE CREATED AUTHOR AUTHOR'S ORGANIZ ATION 03/30/2024 [facility] DATE CREATED AUTHOR AUTHOR'S ORGANIZ ATION 04/04/2024 [facility] DATE CREATED AUTHOR AUTHOR'S ORGANIZ ATION 04/13/2024 [facility] DATE CREATED AUTHOR AUTHOR'S ORGANIZ ATION 04/30/2024 [facility] DATE CREATED AUTHOR AUTHOR'S ORGANIZ ATION 05/10/2024 [facility] Care Teams (unrecognized sec tion and content) Sulfur Burner Relationship Specialty Start Date End Date Latrell Jack MD [address] [place] [phone] PCP - [facility] Medicine 08/05/23 Sulfur Burner Relationship Specialty Start Date End Date Latrell Jack MD [address] [place] [phone] PCP - [facility] Medicine 08/05/23 Sulfur Burner Relationship Specialty Start Date End Date Latrell Jack MD [address] [place] [address] PCP - [facility] 08/05/23 Sulfur Burner Relationship Specialty Start Date End Date Katie Hairston MD [address] [place] [address] Internal Medicine 04/02/24 Sulfur Burner Relationship Specialty Start Date End Date Katie Hairston MD [address] [place] [address] Internal Medicine 04/02/24 Sulfur Burner Relationship Specialty Start Date End Date Katie Hairston MD [address] [place] [address] Internal Medicine 04/02/24 Reason for Visit (unrecogniz ed section and content) Reason Comments Follow-up 6 m Reason Comments New Patient Evaluation Hiatal Hernia Reason Comments 07.24.24 Cure Lap Paraesophageal H ernia Repair/EGD 4 hours los 1 Source Comments (unrecognize d section and content) In the event this informatio n is protected by the [facility] Confidentiality of Alcohol and Drug Abuse Patient Records regulations: The Federal rules restrict any use of the information to criminally investigate or prosecute any alcohol or drug abuse patient.[facility] the event this information is protected by the Federal Confidentiality of Alcohol and Drug Abuse Patient Records regulations: The Federal rules restrict any use of the information to criminally investigate or prosecute any alcohol or drug abuse patient.[facility] Center[facility] the event this information is protected by the Federal Confidentiality of Alcohol and Drug Abuse Patient Records regulations: The Federal rules restrict any use of the information to criminally investigate or prosecute any alcohol or drug abuse patient.[facility] FOR RECORDS PERTAINING TO PATIENTS [...] BE BASED ON THE PRIMARY CLINICAL RECORDS. [employer] [facility]. provides no warranty or guarantee of the accuracy or completeness of information in this document.
--- NOTE | 2024-05-16 11:29 | P.CN_ITS ---
Consult Note: HPI Data of Consult Patient: known to practice within the last 3 years Consult date: 04/15/24 Requesting Physician: Amalia Woodson NP Primary Care Provider: Latrell Mckeon MD Consult Narrative Reason for consult: right foot, low back pain Narrative: 73yof who presents for evaluation. chronic low back and right foot pain, recent lumbar MRI consistent with lumbar stenosis with NC and lumbar spondylosis, see results below. Pain unresponsive to tylenol, cannot take NSAIDs with hiatal hernia. Mild relief from zonegran 100mg HS without side effects. Has failed to benefit from HEP greater than 6 weeks. Recent right L4-5 L5-S1 TFESI providing significant relief in lumbar stenosis with NC and right foot pain, >80% improvement ongoing. Pain today in low back and left SIJ 4/10, increasing to 6/10 with standing walking and long periods of sitting, improved with changing positions. Eduin numbness tingling weakness and loss of bowel/bladder. denies recent falls. cc:: CC: Amalia Woodson NP Review of Systems ROS Status of ROS 10 or more systems reviewed and unremark able except as noted in history and below Musculoskeletal Reports: back pain and joint pain; Denies: extremity pain PFSH PFSH Medical History (Updated 05/16/24 @ 11:35 by Amalia Woodson NP) Osteoarthritis ?M19.90 - Unspecified osteoarthritis, unspecified site (ICD-10) Anxiety ?F41.9 - Anxiety disorder, unspecified (ICD-10) Hiatal hernia ?K44.9 - Diaphragmatic hernia without obstruction or gangrene (ICD-10) Sleep apnea ?G47.30 - Sleep apnea, unspecified (ICD-10) COPD (chronic obstructive pulmonary disease) ?J44.9 - Chronic obstructive pulmonary disease, unspecified (ICD-10) High cholesterol ?E78.00 - Pure hypercholesterolemia, unspecified (ICD-10) HTN (hypertension) ?I10 - Essential (primary) hypertension (ICD-10) Surgical History History of ankle surgery ?Z98.890 - Other specified postprocedural states (ICD-10) History of hand surgery ?Z98.890 - Other specified postprocedural states (ICD-10) History of knee replacement ?Z96.659 - Presence of unspecified artificial knee joint (ICD-10) Meds Home Medications and Allergies Home Medications ?Medication ?Instructions ?Recorded ?Confirmed ?Type aspirin 81 mg tablet,delayed 81 mg PO DAILY 04/16/24 05/06/24 History release (Adult Aspirin Regimen) atorvastatin 40 mg tablet 40 mg PO DAILY 04/16/24 05/06/24 History calcium carbonate (Calcium 500) 500 mg PO BID 04/16/24 05/06/24 History donepezil 5 mg tablet (Aricept) 5 mg PO DAILY 04/16/24 05/06/24 History famotidine 40 mg tablet 40 mg PO DAILY 04/16/24 05/06/24 History fluticasone propionate 50 2 spray intranasal DAILY PRN 04/16/24 05/06/24 History mcg/actuation nasal allergy symptoms spray,suspension (24 Hour Allergy Relief) losartan 50 mg tablet 50 mg PO DAILY 04/16/24 05/06/24 History pantoprazole 40 mg tablet,delayed 40 mg PO BID 04/16/24 05/06/24 History release tiotropium bromide 18 mcg capsule 1 cap inhalation DAILY 04/16/24 05/06/24 History with inhalation device (Spiriva with HandiHaler) vitamin E 268 mg (400 unit) capsule 268 mg PO DAILY 04/16/24 05/06/24 History zolpidem 12.5 mg tablet,extended 12.5 mg PO DAILY 04/16/24 05/06/24 History release,multiphase Allergies Allergy/AdvReac Type Severity Reaction Status Date / Time No Known Drug Allergies Allergy Verified 05/06/24 08:41 Exam Constitutional Documenting provider has reviewed patient's vital signs: yes Common normals: no apparent distress, oriented x3, healthy appearing, alert and well nourished General appearance: cooperative [facility] Common normals: normocephalic, hearing grossly normal bilaterally and moist oral mucous membranes Head and scalp: normocephalic Eye Common normals: PERRL Pupil: PERRL Neck & C-Spine Common normals: full ROM General: normal visual inspection Chest Common normals: inspection of chest normal Respiratory Common normals: normal respiratory effort, no retractions and no use of accessory muscles Back & Pelvis Lumbar spine/lower back: pain with ROM, lumbar spinal tenderness, paraspinal muscle tenderness and straight leg raise negative bilaterally; no paraspinal muscle spasm Sacroiliac joints: SI joint(s) abnormal Other: positive facet loading increased pain over L4-S1 facets strength 5/5 in BLE sensation intact BLE left SIJ positive mauro(patricks), gaenslens, thigh thrust, compression test Neuro Common normals: oriented x3, CN's II-XII intact bilaterally, moves all extremities, no focal motor deficits, no sensory deficits noted and deep tendon reflexes 2+ bilaterally Sensorium/orientation: alert Motor exam: strength 5/5 throughout and no movement abnormalities noted Psych Common normals: mental status grossly normal, thought process normal, cooperative, affect normal, speech normal and activity/motor behavior normal Speech: normal speech Thought process: normal thought process Results Additional Findings Additional findings: If on a controlled substance or opioids, I have checked an OARRS report on this patient and there are no aberrancies noted in the prescribing history.??If on a controlled substance or opioid a drug screen was completed and reviewed within the last year, and if there has not been a drug screen completed we ordered one today to monitor higher risk, state monitored pain medication use. As part of providing excellent, safe, comprehensive care, the following was comp leted at our patient's visit: 1. A medication reconciliation and review to ensure accurate knowledge of current/active medications, including asking our patients to inform us about any rlik-yxz-hplslqc medications or herbal remedies/nutritional supplements/alternative remedies. 2. A review to specifically ensure our patients have had annual screening for screening for depression, screening for tobacco use, and screening for unhealthy alcohol use. For concerning screenings had a discussion with the patient, provided patient education, and recommended follow-up with primary care provider when appropriate. If patient noted with a risk of falling, they received education on strength, gait, and balance training to prevent future risk of falling. Assessment and Plan Assessment and Plan (1) Lumbar spondylosis: Assessment and Plan: >50% improvement from prior RFAs greater than 6 months, pt would like to repeat for axial low back pain unresponsive to above listed treatments (2) Lumbar stenosis with neurogenic claudication: Assessment and Plan: >80% improvement in symptoms ongoing. 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 will review case with Dr Arguello prior to additional workup. pt would not like to proceed until after 08/03 as she has upcoming hernia repair surgery (3) Sacroiliitis: Assessment and Plan: pt declining left SIJ injection at this time (4) Myalgia: Plan bilateral L4-5 L5-S1 facet medial branch block x2 working towards RFA under fluoroscopy, risks vs benefits reviewed continue HEP as tolerated start baclofen 5-10mg BID PRN pain/spasms, risks vs benefits reviewed continue zonegran 100mg HS f/u after each injection
== END 2024-05-16 11:03 | disposition home or self-care (01) ==
LOC: PM 11:02
PROVIDERS: PCP Family Medicine; Visit Provider Nurse Practitioner
DX: M47.816 Spondylosis without myelopathy or radiculopathy, lumbar region (principal); M48.062 Spinal stenosis, lumbar region with neurogenic claudication; M46.1 Sacroiliitis, not elsewhere classified; M79.18 Myalgia, other site
CPT/HCPCS: G0463

== ENCOUNTER 2024-05-27 08:02 | Day surgery (SDC) | payer MEDICARE, OTHER, SELFPAY ==
[2024-05-27 08:28] VITALS: BP 159/86; PULSE 73; TEMP 36; O2SAT 97
[2024-05-27 09:21] VITALS: BP 154/74; PULSE 58; O2SAT 95
[2024-05-27 09:22] VITALS: BP 163/79; PULSE 60; O2SAT 95
[2024-05-27] MEDS: BUPIVACAINE HCL 0.25% PF 25 MG/10 ML VIAL INJ (09:22)
[2024-05-27] MEDS: LIDOCAINE HCL 2% 400 MG/20 ML MDV 15 ML INJ (09:23)
--- NOTE | 2024-05-27 09:24 | W.PM.PROCNOT ---
Date of procedure: 05/27/24 Pre-op diagnosis: Pain due to lumbar spondylosis without myelopathy Post-op diagnosis: same as pre-op Procedure: Procedure: Bilateral L4-5, L5-S1 medial branch block Medications: Bupivacaine 0.25% 6cc The patient was seen and examined in the preoperative holding area.? An informed consent was obtained and placed on the chart.? The patient was brought to the medical procedure unit and placed in the prone position.? A timeout was completed verifying correct patient, procedure site, positioning, plan, and special equipment.? Using aseptic technique, the needle was placed at left L4. Under direct fluoroscopic visualization a Quincke-tipped spinal needle was advanced to the junction of the superior articulating process with the transverse process at the designated medial branch segment.? Preceded by negative aspiration, the above-mentioned injectate was placed in 1 mL aliquots.? The procedure was repeated at left L5, S1.? The needle was removed and insertion site was covered. The same procedure, at the same levels, was completed on the right side. The patient was taken to the postprocedural recovery area and monitored for an appropriate length of time before found suitable for discharge in the company of a responsible adult. Anesthesia: Local Surgeon: Talat Arguello Pathology: none sent Condition: stable Disposition: no change
== END 2024-05-27 09:28 | disposition home or self-care (01) ==
LOC: SURGOUT 08:03
PROVIDERS: PCP Family Medicine; Visit Provider Anesthesiology
DX: M47.816 Spondylosis without myelopathy or radiculopathy, lumbar region (principal)
CPT/HCPCS: 64493; 64494; J0665

== ENCOUNTER 2024-05-29 07:33 | Outpatient (OUT) | payer MEDICARE, OTHER, SELFPAY ==
--- OUTSIDE RECORDS SUMMARY | 2024-05-29 07:36 | XMS_ITS | CCD ---
Author Organization [facility] Care Team Providers Care Kitchen Assistant Name Role Phone FREDY, DR CHAPARRO Attending [...] Unavailable Guero OLIVO, Latrell Primary Care Provider [phone] GUERO, LATRELL Primary Care Physician Pa WEBB Referring Unavailable NILEmily, Pa Vivas Attending Unavailable Pa WEBB Admitting Unavailable Katie Hairston Referring Unavaila ble Sarmini, Leos Talal Attending Unavaila ble Sarmini, Leos Talal Admitting Unavaila ble Sarmini, Leos Talal Referring Unavaila ble Sarmini, Leos Talal Attending Unavaila ble Sarmini, Leos Talal Admitting Unavaila ble Sarmini, Leos Talal Attending Unavaila ble Pa WEBB Attending Unavailable LATRELL JACK Referring Unavailable Yovanny OLIVO, Leos Taljennifer Unavailable [phone] XAVIER BOYD Attending Unava ilable AMEYAMINI, LEOS TALAL Referring Unavaila elly Arguello MD, Talat Benedict Attending Unavailable Saundra OLIVO, Talat Benedict Attending Unavailable LATRELL JACK Attending Unavailable LATRELL JACK Attending Unavailable DIOMEDES MATUTE Attending Unavailable LARTELL JACK Referring Unavailable DIOMEDES MATUTE Referring Unavailable MAO MORROW Attending Unavailable LATRELL JACK Attending Unavailable Allergies Allergy Classification Reported Allergen(s) Allergy Type Date of Onset Reaction(s) Facility (1 source) Amino Acids Drug Allergy [facility] Medications Current Medications Medication Drug Class(es) Dates Sig (Normalized) Sig (Original) aspirin 81 mg oral tablet (12 sources) Platelet Aggregation Inhibitor, Nonsteroidal Anti-inflammatory Drug Start: 03-05-2021 aspirin 81 mg cap Take 81 mg by mouth. 03/05/2021 Active Start: 03-05-2021 take 1 tablet by jennifer th once daily aspirin 81 mg Oral EC Tab 81 mg = 1 tab(s), Oral, Daily, Refills(s) 0, Prophylaxis Start Date: 03/05/21 Status: Ordered atorvastatin 40 mg oral tablet (12 sources) HMG-CoA Reductase Inhibitor Start: 03-12-2021 take [...] Ordered calcium carbonate 1500 mg oral tablet (9 sources) take 1 tablet by mouth in the morning calcium carbonate 1500 (600 Ca) MG tablet Take 1 tablet by mouth in the morning and 1 tablet in the evening. Take with meals. Active cholecalciferol 0.025 mg oral capsule (9 sources) Vitamin D take 1 capsule by mouth once daily cholecalciferol (Vitamin D-3) 25 MCG (1000 UT) capsule Take 1 capsule by mouth 1 (one) time each day at the same time Active Cholecalciferol, Vitamin D3, 25 mcg (1,000 unit) cap Take 1 capsule by mouth. Active donepezil hydrochloride 5 mg oral tablet (8 sources) Start: 02-23-2024 take 1 tablet by mouth at bedtime donepezil (Aricept) 5 MG tablet Indications: 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CMS/HCC) TAKE 1 TABLET BY MOUTH AT BEDTIME 90 tablet 1 03/04/2024 Active famotidine 40 mg oral tablet (12 sources) Histamine-2 Receptor Antagonist Start: 05-15-2024 famotidine (Pepcid) 40 MG tablet Indications: Hiatal hernia with gastroesophageal reflux disease without esophagitis TAKE 1 TABLET TWICE DAILY 180 tablet 3 05/15/2024 Active Start: 05-15-2024 famotidine (Pe pcid) 40 MG tablet Indications: Hiatal hernia with gastroesophageal reflux disease without esophagitis TAKE 1 TABLET TWICE DAILY 180 tablet 3 05/15/2024 Active Start: 11-08-2020 famotidine (PE PCID) 40 mg tablet Take 1 tablet by mouth. 11/08/2020 Active fluticasone propionate 0.05 mg/actuat metered dose nasal spray (12 sources) Corticosteroid Start: 03-26-2024 take 2 spray(s) nasal route once daily fluticasone (Flonase) 50 MCG/ACT nasal spray Indications: Seasonal allergic rhinitis due to pollen USE 2 SPRAYS IN EACH NOSTRIL DAILY 48 mL 5 03/26/2024 Active Start: 09-06-2023 fluticasone (F LONASE) 50 mcg/actuation nasal spray 2 Sprays once daily. 09/06/2023 Active Start: 09-06-2023 Flonase 0.05 m g/inh [place] 2 spray(s), Nasal, Daily, Refill(s) 0, Dry nasal passages Start Date: 09/06/23 Status: Ordered Start: 06-21-2023 take 2 spray(s) nasa l route in the morning fluticasone (Flonase) 50 MCG/ACT nasal spray Administer 2 sprays into each nostril in the morning. 0 06/21/2023 Active losartan potassium 50 mg oral tablet (14 sources) Angiotensin 2 Receptor Martin Start: 05-15-2024 take 1 tablet by mouth in the morning losartan (Cozaar) 50 MG tablet Indications: Essential hypertension, benign (CMS/HCC) Take 1 tablet (50 mg) by mouth in the morning and 1 tablet (50 mg) before bedtime. 180 tablet 3 05/15/2024 Active Start: 05-15-2024 take 1 tablet by jennifer th in the morning losartan (Cozaar) 50 MG tablet Indications: Essential hypertension, benign (CMS/HCC) Take 1 tablet (50 mg) by mouth in the morning and 1 tablet (50 mg) before bedtime. 180 tablet 3 05/15/2024 Active Start: 02-09-2024 End: 05-15-2024 take 1 tablet by mouth once daily losartan (Cozaar) 50 MG tablet Indications: Essential hypertension, benign (CMS/HCC) Take 1 tablet (50 mg) by mouth Daily 90 tablet 3 04/29/2024 05/15/2024 Discontinued (Reorder) Start: 09-06-2023 take 1 tablet by jennifer th once daily losartan 25 mg Tab 25 mg = 1 tab(s), Oral, Daily, Refills(s) 0, High blood pressure Start Date: 09/06/23 Status: Ordered take 1 tablet by jennifer th once daily losartan (Cozaar) 25 MG tablet Take 1 tablet by mouth 1 (one) time each day at the same time 0 Active Multiple Vitamin (multivitamin) capsule (2 sources) take 1 capsule by mouth once daily Multiple Vitamin (multivitamin) capsule Take 1 capsule by mouth Daily Active pantoprazole 40 mg delayed release oral tablet (12 sources) Proton Pump Inhibitor Start: 2020 take 1 tablet by mouth in the morning pantoprazole (ProtoNix) 40 MG EC tablet Indications: Hiatal hernia with gastroesophageal reflux disease without esophagitis Take 1 tablet (40 mg) by mouth in the morning and 1 tablet (40 mg) before bedtime. 180 tablet 3 02/09/2024 Active predniSONE 50 mg oral tablet (2 sources) Start: 2023 End: 2023 take 1 tablet by mouth once daily predniSONE (Deltasone) 50 MG tablet Indications: Chronic obstructive pulmonary disease, unspecified COPD type (CMS/HCC) Take 1 tablet (50 mg) by mouth Daily for 6 days 6 tablet 05/15/2024 05/21/2024 Active tiotropium 0.018 mg inhalation powder (8 sources) Anticholinergic Start: 2023 End: 2024 take 1 capsule by inhalation in the [...] Start Date: 09/06/23 Status: Ordered Vitamin E (11 sources) Start: 02-26-2024 vitamin E Oral , Daily, Refills(s) 0, Prophylaxis Start Date: 02/26/24 Status: Ordered Start: 02-26-2024 vitamin E Oral , Refills(s) 0 Start Date: 02/26/24 Status: Ordered take 1 capsule by [facility] once daily alpha tocopherol (Vitamin E) 400 units capsule Take 1 capsule by mouth 1 (one) time each day at the same time Active Vitamin E, dl, a cetate, (VITAMIN E) 400 unit capsule Take 1 capsule by mouth. Active zolpidem tartrate 12.5 mg extended release oral tablet (12 sources) gamma-Aminobutyric Acid-ergic Agonist Start: 03-03-2021 zolpidem CR (Ambien CR) 12.5 MG ER tablet Indications: Primary insomnia TAKE 1 TABLET AT BEDTIME 90 tablet 2 11/17/2023 Active Completed/Discontinued Medications Medication Drug Class(es) Dates Sig (Normalized) Sig (Original) albuterol 0.83 mg/ml inhalation solution (6 sources) beta2-Adrenergic Agonist Start: 02-23-2024 albuterol 0.083% [...] Active Problems Problem Classification Problem Date Documented Date Episodic/Chronic Abdominal hernia (20 sources) Diaphragmatic hernia without obstruction or gangrene; Translations: [Gastroesophageal reflux disease with hiatal hernia] Onset: 2 08-11-2023 Episodic Acute cerebrovascular disease (4 sources) Cerebrovascular accident; Translations: [Cerebral infarction, unspecified] Onset: 4 03-03-2024 Chronic Anxiety disorders (2 sources) Generalized anxiety disorder; Translations: [Generalized anxiety disorder] 04-12-2024 Chronic Chronic obstructive pulmonary disease and bronchiectasis (16 sources) Chronic obstructive pulmonary disease, unspecified; Translations: [Chronic obstructive pulmonary disease with (acute) exacerbation] Onset: 2 08-11-2023 Chronic Delirium, dementia, and amnestic and other cognitive disorders (4 sources) Senile dementia; Translations: [Unspecified dementia without behavioral disturbance] Onset: 4 02-09-2024 Chronic Disorders of lipid metabolism (13 sources) Hyperlipidemia, unspecified; Translations: [Dyslipidemia] Onset: 2 08-11-2023 Chronic Esophageal disorders (4 sources) Gastroesophageal reflux disease; Translations: [Gastroesophageal reflux disease without esophagitis] Onset: 4 09-06-2023 Chronic Essential hypertension (15 sources) Essential (primary) hypertension; Translations: [Benign essential hypertension] Onset: 2 08-11-2023 Chronic Miscellaneous mental health disorders (11 sources) Psychophysiologic insomnia; Translations: [Primary insomnia] Onset: 2 08-11-2023 Chronic Mood disorders (2 sources) 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 features; Translations: [Major depressive disorder, recurrent severe without psychotic features] 04-12-2024 Chronic Osteoarthritis (11 sources) Primary gonarthrosis, bilateral; Translations: [Bilateral primary osteoarthritis of knee] Onset: 4 08-11-2023 Chronic Other aftercare (4 sources) Patient encounter status; Translations: [Other press tender long goods (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 therapy] Onset: 4 08-11-2023 Episodic Other nervous system disorders (2 sources) [...] Chronic Other nutritional; endocrine; and metabolic disorders (11 sources) Morbid obesity; Translations: [Morbid (severe) obesity [...] excess calories] Onset: 4 03-03-2024 Chronic Other nutritional; endocrine; and metabolic disorders (4 sources) Severe obesity; Translations: [Class 2 severe obesity due to excess calories with serious comorbidity and body mass index (BMI) of 38.0 to 38.9 in adult ([facility])] Onset: 4 05-15-2024 Chronic Other screening for suspected conditions (not mental disorders or infectious disease) (10 sources) Encounter for screening mammogram for malignant neoplasm of breast; Translations: [Patient encounter status] Onset: 2 Episodic Other upper respiratory disease (8 sources) Allergic rhinitis due to pollen; Translations: [Allergic rhinitis due to pollen] Onset: 4 08-11-2023 Chronic Other upper respiratory disease (3 sources) Seasonal allergic rhinitis 09-06-2023 Chronic Residual codes; unclassified (1 source) Obstructive sleep apnea (adult) (pediatric); Translations: [OBSTRUCTIVE SLEEP APNEA] Onset: 2 Chronic Residual codes; unclassified (13 sources) Obstructive sleep apnea syndrome; Translations: [Obstructive sleep apnea (adult) (pediatric)] Onset: 4 08-11-2023 Chronic Residual codes; unclassified (3 sources) Sleep apnea 03-03-2021 Chronic Residual codes; unclassified (2 sources) Insomnia; Translations: [Other insomnia] 04-12-2024 Chronic Residual codes; unclassified (3 sources) Insomnia 09-06-2023 Episodic Residual codes; unclassified (2 sources) Amnesia; Translations: [Other amnesia] 04-12-2024 Episodic Screening and history of mental health and substance abuse codes (5 sources) Personal history of nicotine dependence; Translations: [PERSONAL HISTORY OF NICOTINE DEPEND] Onset: 2 Episodic Transient cerebral ischemia (10 sources) Transient cerebral ischemia; Translations: [Transient cerebral [...] Onset: 09-16-2021 Episodic Diabetes mellitus without complication (4 sources) Prediabetes; Translations: [Prediabetes] Onset: 08-13-2023 08-13-2023 [...] 02-23-2022 Episodic Other aftercare (1 source) Other press tender long goods (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 therapy; Translations: [OTH SOFTWARE DEVELOPMENT TEST ENGINEER CURRENT DRUG THERAPY] Onset: 02-23-2022 Episodic Other aftercare (1 source) intermediate accountant (current) use of aspirin; Translations: [SENIOR CARE CURRENT USE OF ASPIRIN] Onset: 02-23-2022 Episodic Other aftercare (4 sources) Long-term current use of drug therapy; Translations: [Other mcfp (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 therapy] Onset: 08-11-2023 08-11-2023 Episodic Other bone disease and musculoskeletal deformities (1 source) Other specified disorders of bone density and structure, other site; Translations: [OTH D/O BONE DEN STRUCT OTH SITE] Onset: 09-16-2021 Episodic Other bone disease and musculoskeletal deformities (7 sources) Osteopenia; Translations: [Other specified disorders of bone density and structure, other site] Onset: 08-11-2023 08-11-2023 Episodic Other circulatory disease (1 source) Personal history of transient ischemic attack (TIA), and cerebral infarction without residual deficits; Translations: [PERS HX TIA AND CI NO RESID DEFICIT] Onset: 09-16-2021 Episodic Other gastrointestinal disorders (7 sources) Dysphagia; Translations: [Dysphagia, unspecified] Onset: 02-09-2024 Episodic Other lower respiratory disease (3 sources) Dyspnea, unspecified; Translations: [DYSPNEA UNSPECIFIED] Onset: 11-02-2021 Episodic Other lower respiratory disease (1 source) Shortness of breath; Translations: [SHORTNESS OF BREATH] Onset: 11-04-2021 Episodic Other non-traumatic joint disorders (1 source) Pain in right ankle and joints of right foot; Translations: [PAIN IN RIGHT ANKLE] Onset: 09-16-2021 Episodic Residual codes; unclassified (4 sources) Hypersomnia; Translations: [Hypersomnia, unspecified] Onset: 03-03-2024 Resolved: 05-15-2024 03-03-2024 Chronic Residual codes; unclassified (1 source) Family history of malignant neoplasm of trachea, bronchus and lung; Translations: [FAM HX MALIG NEOPLSM TRACH BRON LNG] Onset: 11-12-2021 Episodic Residual codes; unclassified (1 source) Asymptomatic menopausal state; Translations: [ASYMPTOMATIC MENOPAUSAL STATE] Onset: 09-16-2021 Episodic Residual codes; unclassified (10 sources) Edema of lower extremity; Translations: [Localized edema] Onset: 08-11-2023 08-11-2023 Episodic Spondylosis; intervertebral disc disorders; other back problems (1 source) Lumbago with sciatica, left side; Translations: [LUMBAGO WITH SCIATICA LEFT SIDE] Onset: 09-16-2021 Episodic Unclassified (1 source) COUGH, UNSPECIFIED; Translations: [COUGH, UNSPECIFIED] Onset: 02-22-2022 Results Test Name Value Interpretation Reference Range Facility OVon 04-29-2024 CNOV Office Visit (Maximo ) SHEY BOSS ([id number]) 1950 F Date Time Provider Department 04/29/24 [...] No Yan Moser 04/29/2024 12:10 PM Signed [facility] Abdominal [facility] - HISTORY AND PHYSICAL SUBJECTIVE: [...] Reviewed IMAGING: OSH UGI reviewed and uploaded. [facility] Type III [facility]. ASSESSMENT/PLAN: chani Boss is a 73 year [...] Consents obtained Yan Moser MD General Surgery [facility], Xavier Acharya MD 04/29/2024 12:10 PM Signed [...] and discussed (more content not included)... Normal [facility] ([id number]) 1950 F Date Time Provider Department 04/22/24 ASHLIE CALDERON During your visit today, we recorded the following information about you: Ashlie Calderon 04/22/2024 5:39 PM Signed Spoke with PT she state no prior surgeries Allergies As of Date: 04/22/2024 (Not on File) Date Reviewed: Never Reviewed Problem List As Of Date: 04/22/2024 (None) Encounter Status:Closed by ASHLIE CALDERON on 04/22/24 Normal [facility] Surgical Pathology Reporton 03-26-2024 Surgical Pathology Report [address] [place] [address]- Surgical Pathology Report Collected Date/Time: 03/20/2024 12:52 [...] is entirely submitted in one cassette. (DC) DC:[facility] Microscopic Description Microscopic examination performed unless gross only specified. The use of one or more reagents in the above tests is regulated as an analyte specific reagent (ASR). The test or tests are ordered following initial H&E microscopic examination. The performance characteristics were determined by the [facility] of [facility]. They have not been cleared or approved by the [place] Food and Drug Administration. The FDA has determined that such clearance or approval is not necessary. These tests are used for clinical purposes. They should not be regarded as investigational or for research. Appropriate positive and negative controls are performed and are acceptable. Normal [facility] Comment on above: Performed By: #### [id number] #### [facility] Laboratory [address] [place] [address] XR Esophaguson 03-26-2024 XR Esophagus Exam Date/Time: [...] mGy = 15.80 DAP = 464.17 Normal [facility] Main OR Intraoperative Recor don 03-22-2024 Main OR Intraoperative Record Main OR Intraoperative Record IntraOp Document Type FT Summary Primary Physician: Katie Hairston MD Finalized Date/Time: 03/22/24 14:46:15 Pt. Name: SHEY BOSS Tamie/Sex: 1950 Female Med Rec #: [id number] Physician: Katie Hairston MD Financial #: [id number] Pt. Type: O Room/Bed: / Admit/Disch: 03/20/24 [...] Анна Hairston MD, Katie Torres Role Performed BUSINESS LAW INSTRUCTOR Scrub - Primary Surgeon - Primary Time In 03/20/24 12:44:00 03/20/24 12:44:00 03/20/24 12:44:00 Time Out 03/20/24 12:56:00 03/20/24 12:56:00 03/20/24 12:56:00 Procedure EGD(.) EGD(.) EGD(.) Comments Dr. Hairston supervising procedure. Last Modified By: Mynor FORBES, Violette Lopez RN, Essence Pinto RN 03/22/24 14:45:45 03/20/24 12:56:36 03/20/24 12:56:36 Entry 4 Case Attendee Essence Lopez RN Role Performed Manager Distribution Center - Primary Time In 03/20/24 12:44:00 Time [...] and tissue Entry 1 Skin Integrity Intact, [place], Warm, & Skin Abnormality No Dry Outcomes [...] Extended Positioning (more content not included)... Normal [facility] Discharge Instructionson Discharge Instructions Discharge Instructions [...] mg Tab) fluticasone nasal (Flonase 0.05 mg/inh [place]) losartan (losartan 25 mg Tab) multivitamin with [...] Up with Yovanny OLIVO, Katie Torres, GAS, [facility] When: Comments: Call for [...] Unchanged fluticasone nasal (Flonase 0.05 mg/ inh [place]) 2 Sprays Nasal Inhalation Every day Unchanged [...] get better (more content not included)... Normal [facility] Comment on above: Result Comment: Elec tronically Signed By: Kassy Barker I\.br\Date and Time Signed: 03/20/24 13:08 EDT Inpatient Patient Summaryon 03-20-2024 Inpatient Patient Summary Inpatient Patient Summary [place] [id number] [facility] Clinical Discharge Instructions PERSON INFORMATION Name: SHEY BOSS PHYSICIANS Admitting Physician: Katie Hairston MD Attending [...] (at bedtime). fluticasone nasal (Flonase 0.05 mg/inh [place]) 2 Sprays Nasal Inhalation every day. losartan [...] bedtime) as needed for sleep. Comment: Kary [facility] Main OR PACU I Recordon 03-10 Main OR PACU I Record Main OR PACU I Record PACU Phase I Document Type FT Summary Primary Physician: Katie Hairston MD Finalized Date/Time: 03/20/24 13:37:02 Pt. Name: SHEY BOSS/Sex: 1950 Female Med Rec #: [id number] Physician: Katie Hairston MD Financial #: [id number] Pt. Type: O Room/Bed: / Admit/Disch: 03/20/24 [...] By: Kassy Barker I 03/20/24 13:37 Normal [facility] Main OR Preoperative Recordo n 03-20-2024 Main OR Preoperative Record Main OR Preoperative Record Holding Area Document Type FT Summary Primary Physician: Katie Hairston MD Finalized Date/Time: 03/20/24 11:17:32 Pt. Name: SHEY BOSS/Sex: 1950 Female Med Rec #: [id number] Physician: Katie Hairston MD Financial #: [id number] Pt. Type: O Room/Bed: / Admit/Disch: 03/20/24 [...] By: Essence Lopez RN 03/20/24 11:17 Normal [facility] Outpatient Surgery Discharge Instructionon 03-20-2024 Outpatient Surgery Discharge Instruction Outpatient Surgery Discharge Instruction [place] [id number] Patient Discharge Instructions PERSON INFORMATION Name: SHEY [...] Information: You may receive a survey from [employer] asking you to rate your care experience. Your feedback is important and will help us understand what we do well and how we can improve the quality of care we provide to you, your loved ones and our community. It?s an honor to serve you. Thank you for choosing [facility] HERE ARE THE MEDICATION CHANGES THAT [...] (at bedtime). fluticasone nasal (Flonase 0.05 mg/inh [place]) 2 Sprays Nasal Inhalation every day. losartan [...] sleep. PATIENT EDUCATION INFORMATION Instructions: Medication Leaflets: [facility] Proceduralon 03-20-2024 Procedural Procedural Patient: SHEY BOSS Age: 73 years Sex: Female : 1950 Associated Diagnoses: None Author: Daquan Schuler MD Postoperative Information Postoperative disposition: Postoperative disposition: To PACU. Optimetrix number: Optimetrix number [id number]. Anesthetic utilized: General. Health Status Allergies: Allergic [...] meets criteria ( To home ). Normal [facility] Procedural Procedural Patient: SHEY BOSS Age: 73 years Sex: Female : 1950 Associated Diagnoses: None Author: Ganga OLIVO, Daquan Olea Preoperative Information Anesthesia Preop Info: Time patient [...] 1 tab, Oral, Daily Flonase 0.05 mg/inh [place]: 2 spray(s), Nasal, Daily, Refill(s) 0, Dry [...] a day (at bedtime) Flonase 0.05 mg/inh [place] 2 spray(s), Nasal, Daily losartan 25 mg [...] All Problems BMI 39.0-39.9,adult / SNOMED CT 854483532 / Confirmed Chronic obstructive pulmonary disease / SNOMED CT 54182666 / Confirmed Dyslipidemia / SNOMED CT 2360461040 / Confirmed Dysphagia / SNOMED CT 15704068 / Confirmed GERD (gastroesophageal reflux disease) / SNOMED CT 257044891 / Confirmed Hiatal hernia / SNOMED CT 760121770 / Confirmed HTN (hypertension) / SNOMED CT 6625755623 / Confirmed Insomnia / SNOMED CT 408172408 / Confirmed Lower extremity edema / SNOMED CT 851495484 / Confirmed Morbid obesity / SNOMED CT 991498683 / Confirmed EDWIN (obstructive sleep apnea) / SNOMED CT 384723972 / Confirmed Screening for malignant neoplasm of colon / SNOMED CT 834621463 / Confirmed Seasonal allergic rhinitis / SNOMED CT 273206745 / Confirmed TIA (transient ischemic attack) / SNOMED CT 934624844 / Confirmed Resolved: At risk for falls / SNOMED CT 381076396 Problem added when Risk for Falls Careplan was initiated. Resolved due to patient discharge. Resolved: Hernia / SNOMED CT 757104686 Resolved: Potential for deficient knowledge of cerebrovascular accident (CVA) / IMO [id number] problem added based on Stroke Powerplan ordered. Resolved due to patient discharge. Resolved: Sleep apnea / SNOMED CT 908910769, Active Problems (14) BMI 39.0-39.9,adult Chronic obstructive pulmonary disease Dyslipidemia Dysphagia GERD (gastroesophageal reflux disease) Hiatal hernia HTN (hypertension) Insomnia Lower extremity edema Morbid obesity EDWIN (obstructive sleep apnea) Screening for malignant neoplasm of colon Seasonal allergic rhinitis TIA (transient ischemic (more content not included)... Normal [facility] Ambulatory Visit Summaryon 0 02-26-2024 Ambulatory [...] mg Tab) fluticasone nasal (Flonase 0.05 mg/inh [place]) losartan (losartan 25 mg Tab) multivitamin with [...] Unchanged fluticasone nasal (Flonase 0.05 mg/ inh [place]) 2 Sprays Nasal Inhalation Every day Contact [...] for choosing us for your care. Kary [facility] Gastroenterology Office/Clin ic Noteon 02-26-2024 Gastroenterology [...] when she lays down hoarseness Colonoscopy 10/13/23 w/ Nill: Findings The bowel was normal throughout the [...] or gangrene) reports she had esophagram in [place] no egd in the past declined surgery [...] a day (at bedtime) Flonase 0.05 mg/inh [place], 2 spray(s), Nasal, Daily losartan 25 mg [...] virus vaccine, inactivated 05/03/2022 Recorded SARS-CoV-2 (COVID-19) [id number] 05/03/2022 Recorded influenza virus vaccine, inactivated 04/12/2021 [...] virus vaccine, inactivated 04/16/2015 Recorded Normal [facility] Comment on above: Result Comment: Elec tronically Signed By: Yovanny LOIVO, Katie Torres\.br\Date and Time Signed: 02/26/24 09:38 EDT IntraOperative Documentson 0 10-19-2023 IntraOperative Documents [id number] 0TIFF [facility] Consenton 10-16-2023 Consent [id number] TIFF [facility] Discharge Instructionson Discharge Instructions [id number] TIFF [facility] Main OR Intraoperative Recor don 10-16-2023 Main OR Intraoperative Record IntraOp Document Type FT Summary Primary Physician: Pa WEBB MD Finalized Date/Time: 10/16/23 09:46:21 Pt. Name: KARYNSHEY/Sex: 1950 Female Med Rec #: [id number] Physician: Pa WEBB MD Financial #: [id number] Pt. Type: O Room/Bed: / Admit/Disch: 10/13/23 [...] Case Attendee Rajwinder DRAPER, Valentin WEBB MD, Kimberly Mcclellan RN Role Performed Anesthesiologist Surgeon - Primary Manager Distribution Center - Primary Perioperative Tech Time In 10/13/23 08:55:00 10/13/23 08:55:00 10/13/23 [...] and tissue Entry 1 Skin Integrity Intact, [place], Warm, and Skin Abnormality No Dry Outcomes [...] Infante RN (more content not included)... Normal [facility] Postoperative Documentson Postoperative Documents [id number] TIFF Normal [facility] Reminderson 10-16-2023 Reminders - From: Nhi Aguirre LPN To: GSN - Clinical; Sent: 10/16/2023 10:15:48 EDT Show up: 09/11/2033 07:00:00 EST Subject: colonoscopy recall Due Date/Time: 10/12/2033 07:00:00 EDT Reminder/Recall Patient due for screening colonoscopy 10/12/2033. Normal [facility] Colonoscopy Procedure Report on 10-13-2023 Colonoscopy [...] for screening for malignant neoplasm of rectum (JUI47-FV Z12.12, Discharge, Medical). Course: Progressing as expected. Recommendations: Repeat colonoscopy:: In 10 years. Follow-up:: if problems/questions. Diet:: Regular diet. Medication resumption:: Continue current medications. Return to activities:: After 24 hours. Education and Follow-up: Counseled: Family. [facility] Comment on above: Other Comment: Samreen dueñas Attachment - attachment storage system not supported [id number] Can be viewed in source systemMissing Attachment - attachment storage system not supported [id number] Can be viewed in source systemMissing Attachment - attachment storage system not supported [id number] Can be viewed in source systemMissing Attachment - attachment storage system not supported [id number] Can be viewed in source systemMissing Attachment - attachment storage system not supported [id number] Can be viewed in source system Consent for Treatmenton Consent for Treatment [id number] IFF [facility] Discharge Instructionson Discharge Instructions SHEY BOSS [...] mg Tab) fluticasone nasal (Flonase 0.05 mg/inh [place]) losartan (losartan 25 mg Tab) multivitamin with [...] Pa WEBB When: Only if needed Where: [facility] [address], [facility] [place] [address] [address] Mobile Authentication (1) Medications What How Much When Instructions [...] Unchanged fluticasone nasal (Flonase 0.05 mg/ inh [place]) 2 Sprays Nasal Inhalation Every day Unchanged [...] as instru (more content not included)... Normal [facility] Comment on above: Result Comment: Elec tronically Signed By: Marcy FORDE, Mariaelena\.maikol\Date and Time Signed: 10/13/23 09:33 EDT Inpatient Patient Summaryon 10-13-2023 Inpatient Patient Summary [address] [address] [facility] Clinical Discharge Instructions PERSON INFORMATION Name: SHEY BOSS PHYSICIANS Admitting Physician: Pa WEBB MD Attending Physician: Pa WEBB MD PCP: LATRELL JACK MD Discharge Diagnosis: Encounter for colorectal cancer screening; Encounter for screening for malignant neoplasm of rectum Comment: PATIENT EDUCATION INFORMATION Instructions: Medication Leaflets: Follow up: With: Address: When: Pa WEBB [address] [place] [address], [address], [place] [phone] Business (1) , only if needed MEDICATION [...] (at bedtime). fluticasone nasal (Flonase 0.05 mg/inh [place]) 2 Sprays Nasal Inhalation every day. losartan [...] bedtime) as needed for sleep. Comment: Normal [facility] Main OR PACU I Recordon Main OR PACU I Record PACU Phase I Document Type FT Summary Primary Physician: Pa WEBB MD Finalized Date/Time: 10/13/23 09:54:27 Pt. Name: SHEY BOSS/Sex: 1950 Female Med Rec #: [id number] Physician: Pa WEBB MD Financial #: [id number] Pt. Type: O Room/Bed: / Admit/Disch: 10/13/23 [...] By: Mariaelena Vidal RN 10/13/23 09:54 Normal [facility] Main OR Preoperative Recordo n 10-13-2023 Main OR Preoperative Record Holding Area Document Type FT Summary Primary Physician: Pa WEBB MD Finalized Date/Time: 10/13/23 08:06:06 Pt. Name: SHEY BOSS/Sex: 1950 Female Med Rec #: [id number] Physician: Pa WEBB MD Financial #: [id number] Pt. Type: O Room/Bed: / Admit/Disch: 10/13/23 [...] Signed By: Olivia Domínguez 10/13/23 08:06 Normal [facility] Monitor Recordon 10-13-2023 Monitor Record [id number] TIFF Normal [facility] Monitor Record [id number] TIFF Normal [facility] Outpatient Surgery Discharge Instructionon 10-13-2023 Outpatient Surgery Discharge Instruction [address] [address] Patient Discharge Instructions PERSON INFORMATION Name: SHEY [...] Date Follow up: With: Address: When: Pa [address], [address], [place] [address] [facility] (1) , only if needed Pharmacy Information: You may receive a survey from [employer] asking you to rate your care experience. Your feedback is important and will help us understand what we do well and how we can improve the quality of care we provide to you, your loved ones and our community. It?s an honor to serve you. Thank you for choosing [facility] HERE ARE THE MEDICATION CHANGES THAT [...] (at bedtime). fluticasone nasal (Flonase 0.05 mg/inh [place]) 2 Sprays Nasal Inhalation every day. losartan [...] sleep. PATIENT EDUCATION INFORMATION Instructions: Medication Leaflets: [facility] Patient Education - Texton 0 10-13-2023 [...] or gets worse throughout the day. Normal [facility] Progress Note-Physicianon Progress Note-Physician Patient: SHEY BOSS Age: 73 years Sex: Female : 1950 Associated Diagnoses: None Author: Shaji Bethea Jr., DO Postoperative Information Postoperative disposition: Postoperative disposition: Home. Optimetrix number: Optimetrix number [id number]. Anesthetic utilized: General. Physical Examination Vital Signs [...] Surgery Unit, and To home ). Normal [facility] Comment on above: Result Comment: Elec [...] m2 Documented Medications Documented Flonase 0.05 mg/inh [place]: 2 spray(s), Nasal, Daily, Refill(s) 0, Dry [...] a day (at bedtime) Flonase 0.05 mg/inh [place] 2 spray(s), Nasal, Daily losartan 25 mg [...] All Problems BMI 39.0-39.9,adult / SNOMED CT 643706995 / Confirmed Chronic obstructive pulmonary disease / SNOMED CT 61122782 / Confirmed Dyslipidemia / SNOMED CT 2033172673 / Confirmed GERD (gastroesophageal reflux disease) / SNOMED CT 977710476 / Confirmed Hiatal hernia / SNOMED CT 248338284 / Confirmed HTN (hypertension) / SNOMED CT 6852454897 / Confirmed Insomnia / SNOMED CT 479115816 / Confirmed Lower extremity edema / SNOMED CT 044383790 / Confirmed Morbid obesity / SNOMED CT 078919230 / Confirmed EDWIN (obstructive sleep apnea) / SNOMED CT 934366375 / Confirmed Screening for malignant neoplasm of colon / SNOMED CT 457541662 / Confirmed Seasonal allergic rhinitis / SNOMED CT 910883086 / Confirmed TIA (transient ischemic attack) / SNOMED CT 934707822 / Confirmed Resolved: At risk for falls / SNOMED CT 666237095 Problem added when Risk for Falls Careplan was initiated. Resolved due to patient discharge. Resolved: Hernia / SNOMED CT 016998163 Resolved: Potential for deficient knowledge of cerebrovascular accident (CVA) / IMO 78563270 problem added based on Stroke Powerplan ordered. Resolved due to patient discharge. Resolved: Sleep apnea / SNOMED CT 794040070 Histories Past Medical History: Resolved Hernia (761995977): Resolved. Sleep apnea (490920813): Resolved. Procedure history: ORIF - Open reduction of fracture of ankle with internal fixation ([id number]). Meniscal repair (962664195). Tonsillectomy (065849273). Hand tendon repaired (293850707). Social History Social & Psychosocial Habits Alcohol 09/12/2023 Frequency: 1-2 times per year Substance Abuse Comment: denies - 03/03/2021 07:19 - Carolyn Stewart RN 09/12/2023 Risk Assessment: Denies Substance Abuse Tobacco 09/12/2023 Tobacco Use: Former smoker, quit more Smokeless tobacco use: Never Type: Cigarettes . Physical Examination Vital Signs 10/13/2023 8:03 EDT Temperature Temporal Artery 36.3 DegC (more content not included)... Normal [facility] Comment on above: Result Comment: Elec tronically Signed By: Shaji Bethea Jr., DO.maikol\Date and Time Signed: 10/13/23 08:04 EDT Consent for Procedure/Surger yon 09-13-2023 Consent for Procedure/Surgery [id number]#1.00TI FF Normal [facility] Ambulatory Visit Summaryon 0 09-12-2023 Ambulatory [...] mg Tab) fluticasone nasal (Flonase 0.05 mg/inh [place]) losartan (losartan 25 mg Tab) multivitamin with [...] Unchanged fluticasone nasal (Flonase 0.05 mg/ inh [place]) 2 Sprays Nasal Inhalation Every day Contact [...] for choosing us for your care. Normal [facility] Provider Letteron 08-25-2023 Provider Letter (Inserted Image. Celia ble to display) August 25, 2023 SHEY BOSS [address] [place] [phone] : 1950 Dear Ms. Boss, We have been trying to reach you with no success regarding a referral from Dr Jack. It is important that you return our call upon receiving this letter so that we can set up an appointment for you in either our [place] or [place] office. Also, at the time of your call, please provide us with your current demographic and insurance information. Thank you for your prompt attention to this matter. Sincerely, [facility] General Surgery [phone] Normal [facility] Physician Referralon 024 Physician Referral [id number] IFF Normal [facility] CT LUNG CANCER SCREENINGon 0 07-28-2022 [...] MEHNAZ SANTIAGO Date: 2022-07-28 15:28 Normal [facility] BNPon 02-22-2022 Natriuretic peptide B (Bld) [Mass/Vol] 108.0 pg/mL Normal <=900.0 [facility] Comment on above: Performed By: #### B MP, BNP, HSTROPN ####[facility] [address] [place], [place] [address]JtMichelle Felisa Trujillo CBC AUTO DIFFon 02-22-2022 BASO # 0.0 103/ul Normal 0.0-0.1 [place] Comment on above: Performed By: #### C BC ####[facility] [address] [place] [id number]. Felisa Trujillo Basophils/100 WBC (Bld) 0.7 % Normal 0.2-2.0 [facility] Comment on above: Performed By: #### C BC ####[facility] [address] [place], [place] [address]Dr. Felisa Trujillo EO # 0.1 103/ul Normal 0.0-0.7 [facility] Comment on above: Performed By: #### C BC ####[facility] [address] [place] [address]Dr. Felisa Trujillo Eosinophils/100 WBC (Bld) 1.4 % Normal 0.9-7.0 [facility] Comment on above: Performed By: #### C BC ####[facility] [address] [place], [place] [address]Dr. Felisa Trujillo Erythrocyte distribution width (RBC) [Ratio] 13.2 % Normal 11.0-15.0 [place] Comment on above: Performed By: #### C BC ####[facility] [address] [place], [place] [address]Dr. Felisa Trujillo Hematocrit (Bld) [Volume fraction] 36.6 % Normal 36.0-48.0 [facility] Comment on above: Performed By: #### C BC ####[facility] [address] [place], [place] [address]Dr. Felisa Trujillo Hemoglobin (Bld) [Mass/Vol] 12.7 g/dL Normal 12.0-16.0 [facility] Comment on above: Performed By: #### C BC ####[facility] [address] [place], [place] [address]Dr. Felisa Trujillo IG # 0.01 10e3/ul Normal 0.00-0.03 [facility] Comment on above: Performed By: #### C BC ####[facility] [address] [place], [place] [address]Dr. Felisa Trujillo IG % 0.2 % Normal 0.0-0.5 [facility] Comment on above: Performed By: #### C BC ####[facility] [address] [place] [address]Dr. Felisa Trujillo LYMPH # 1.0 103/ul Critically low 1.2-3.8 [facility] Comment on above: Performed By: #### C BC ####[facility] [address] [place] [address]Dr. Felisa Trujillo Lymphocytes/100 WBC (Bld) 22.3 % Normal 20.5-60.0 [place] Comment on above: Performed By: #### C BC ####[facility] [address] [place] [address]Dr. Felisa Trujillo MANUAL DIFF REQ NO Normal [facility] Comment on above: Performed By: #### C BC ####[facility] [address] [place] [id number]. Felisa Trujillo MCH (RBC) [Entitic mass] 31.8 pg Normal 26.7-34.0 [place] Comment on above: Performed By: #### C BC ####[facility] [address] [place] [address]Dr. Krystakun Trujillo MCHC (RBC) [Mass/Vol] 34.7 g/dL Normal 29.9-35.2 [facility] Comment on above: Performed By: #### C BC ####[facility] [address] [place] [address]Dr. Felisa Trujillo MCV (RBC) [Entitic vol] 91.7 fL Normal 81.0-99.0 [place] Comment on above: Performed By: #### C BC ####[facility] [address] [place] [address]Dr. Felisa Trujillo MONO # 0.5 103/ul Normal 0.3-0.8 [facility] Comment on above: Performed By: #### C BC ####[facility] [address] [place] [address]Dr. Felisa Trujillo Monocytes/100 WBC (Bld) 11.7 % Normal 1.7-12.0 [facility] Comment on above: Performed By: #### C BC ####[facility] [address] [place], [place] [address]Ur. Felisa Trujillo NEUT # 2.7 103/ul Normal 1.4-6.5 [facility] Comment on above: Performed By: #### C BC ####[facility] [address] [place], [place] [address]Iv. Felisa Trujillo Neutrophils/100 WBC (Bld) 63.7 % Normal 43.0-75.0 [place] Comment on above: Performed By: #### C BC ####[facility] [address] [place], [place] [address]Tz. Felisa Trujillo Platelet mean volume (Bld) [Entitic vol] 10.2 fL Normal 9.5-13.5 [place] Comment on above: Performed By: #### C BC ####[facility] [address] [place] [id number]. Felisa Trjuillo PLT 149 103/ul Critically low 150-450 [facility] Comment on above: Performed By: #### C BC ####[facility] [address] [place] [address]Dr. Felisa Trujillo RBC 3.99 106/ul Critically low 4.20-5.40 [facility] Comment on above: Performed By: #### C BC ####[facility] [address] [place] [address]Dr. Felisa Trujillo WBC 4.3 103/ul Normal 4.0-11.0 [facility] Comment on above: Performed By: #### C BC ####[facility] [address] [place] [id number]. Felisa Trujillo [facility]07 SARS-CoV-2 (COVID-19) RNA DUGLAS+probe Ql (Unsp spec) Detected Critically abnormal NOT DETECTED [facility] Comment on above: Result Comment: This test is not yet approved or cleared by the [place] FDA. When there are no FDA-approved or cleared tests available, and other criteria are met, FDA can make tests available under an emergency access mechanism called an Emergency Use Authorization (EUA). The EUA for this test is supported by the [employer] of Health and Human Service's declaration that [...] be used). Performed By: #### C VDTBH ####[facility] [address] [place], [place] [address]Dr. Felisa Trujillo PROF CHEM 8 (BAS METB)on Anion gap [Moles/Vol] 14.9 mmol/L Normal [place] Comment on above: Performed By: #### B MP, BNP, HSTROPN ####[facility] [address] [place], [place] [address]Dr. Felisa Trujillo Calcium [Mass/Vol] 8.9 mg/dL Normal 8.5-10.1 [facility] Comment on above: Performed By: #### B MP, BNP, HSTROPN ####[facility] [address] [place], [place] [address]Dr. Felisa Trujillo Chloride [Moles/Vol] 104 mmol/L Normal 98-107 [place] Comment on above: Performed By: #### B MP, BNP, HSTROPN ####[facility] [address] [place], [place] [address]Dr. Felisa Trujillo CO2 [Moles/Vol] 24.0 mmol/L Normal 21.0-32.0 [facility] Comment on above: Performed By: #### B MP, BNP, HSTROPN ####[facility] [address] [place], [place] [address]Dr. Felisa Trujillo Creatinine [Mass/Vol] 0.98 mg/dL Normal 0.55-1.02 [place] Comment on above: Performed By: #### B MP, BNP, HSTROPN ####[facility] [address] [place] [address]Dr. Felisa Trujillo EGFR-AF INDIAN >60 Normal >=60 [facility] Comment on above: Performed By: #### B MP, BNP, HSTROPN ####[facility] [address] [place] [address]Dr. Felisa Trujillo EGFR-NON AF INDIAN 56 mL/min/1.73m2 Critically low >=60 [place] Comment on above: Performed By: #### B MP, BNP, HSTROPN ####[facility] [address] [place] [address]Dr. Felisa Trujillo Glucose [Mass/Vol] 136 mg/dL Critically high 74-106 [facility] Comment on above: Performed By: #### B MP, BNP, HSTROPN ####[facility] [address] [place], [place] [address]Dr. Felisa Trujillo Potassium [Moles/Vol] 3.9 mmol/L Normal 3.5-5.1 [place] Comment on above: Performed By: #### B MP, BNP, HSTROPN ####[facility] [address] [place], [place] [address]Dr. Felisa Trujillo Sodium [Moles/Vol] 139 mmol/L Normal 136-145 [facility] Comment on above: Performed By: #### B MP, BNP, HSTROPN ####[facility] [address] [place], [place] [address]Dr. Felisa Trujillo Urea nitrogen [Mass/Vol] 14.0 mg/dL Normal 7.0-18.0 [place] Comment on above: Performed By: #### B MP, BNP, HSTROPN ####[facility] [address] [place] [address]Dr. Felisa Trujillo Urea nitrogen/Creatinine [Mass ratio] 14.3 mg/mg Normal [place] Comment on above: Performed By: #### B MP, BNP, HSTROPN ####[facility] [address] [place] [address]Dr. Felisa Trujillo TROPONIN, HIGH SENSITIVITYon 02-22-2022 HSTROP 5.9 pg/mL Normal 4.0-51.3 [place] Comment on above: Result Comment: CUT- OFF POINTS HAVE BEEN ESTABLISHED BASED ON THE FOURTH UNIVERSAL DEFINITIONS OF MYOCARDIAL INFARCTION. THE UPPER REFERENCE LIMIT (URL) OF TROPONIN, DEFINED THE 99TH PERCENTILE OF cTnI DISTRIBUTION IN A REFERENCE POPULATION, HAS BEEN CONFIRMED THE DECISION THRESHOLD FOR [place] DIAGNOSIS. Performed By: #### B MP, BNP, HSTROPN ####[facility] [address] [place], [place] [address]Hz. Felisa Trujillo XR CHEST 1 Von 02-22-2022 [...] by: MEHNAZ SANTIAGO Date: 2022-02-22 13:30 Normal [facility] MAMM SCREEN 3D RONALD CADon 11-11-2021 MG MAMM SCREEN 3D RONALD CAD Patient: SHEY BOSS Exam Date: 11/11/2021 : 1950 Gender:F Ordering : DR LATRELL JACK . Admission #: [id number] Family : Order #: [id number] CLICK HERE TO VIEW EXAM RADIOLOGY REPORT [...] lung cancer at age 46. LOCATION: [facility] BREAST COMPOSITION: Almost entirely fatty. FINDINGS: DIAGNOSTIC [...] MD on 11/11/2021 at 13:04 Normal [facility] BNPon 11-02-2021 Natriuretic peptide B (Bld) [Mass/Vol] 42.0 pg/mL Normal <=900.0 [place] Comment on above: Performed By: #### H STROPN, CMP, BNP #### [facility] [address] [place] [address] Dr. Felisa Trujillo CBC AUTO DIFFon 11-02-2021 BASO # 0.1 103/ul Normal 0.0-0.1 [place] Comment on above: Performed By: #### C BC #### [facility] [address] [place] [address] Dr. Felisa Trujillo Basophils/100 WBC (Bld) 0.8 % Normal 0.2-2.0 [place] Comment on above: Performed By: #### C BC #### [facility] [address] [place] [address] Dr. Felisa Trujillo EO # 0.3 103/ul Normal 0.0-0.7 [place] Comment on above: Performed By: #### C BC #### [facility] [address] [place] [address] Dr. Felisa Trujillo Eosinophils/100 WBC (Bld) 3.9 % Normal 0.9-7.0 [place] Comment on above: Performed By: #### C BC #### [facility] [address] [place] [address] Dr. Felisa Trujillo Erythrocyte distribution width (RBC) [Ratio] 12.7 % Normal 11.0-15.0 [place] Comment on above: Performed By: #### C BC #### [facility] [address] [place] [address] Dr. Felisa Trujillo Hematocrit (Bld) [Volume fraction] 40.2 % Normal 36.0-48.0 [place] Comment on above: Performed By: #### C BC #### [facility] [address] [place] [address] Dr. Felisa Trujillo Hemoglobin (Bld) [Mass/Vol] 13.6 g/dL Normal 12.0-16.0 [place] Comment on above: Performed By: #### C BC #### [facility] [address] [place] [address] Dr. Felisa Trujillo IG # 0.02 10e3/ul Normal 0.00-0.03 [place] Comment on above: Performed By: #### C BC #### [facility] [address] [place] [address] Dr. Felisa Trujillo IG % 0.3 % Normal 0.0-0.5 [place] Comment on above: Performed By: #### C BC #### [facility] [address] [place] [address] Dr. Felisa Trujillo LYMPH # 1.9 103/ul Normal 1.2-3.8 [place] Comment on above: Performed By: #### C BC #### [facility] [address] [place] [address] Dr. Felisa Trujillo Lymphocytes/100 WBC (Bld) 30.0 % Normal 20.5-60.0 [place] Comment on above: Performed By: #### C BC #### [facility] [address] [place] [address] Dr. Felisa Trujillo MANUAL DIFF REQ NO Normal [facility] Comment on above: Performed By: #### C BC #### [facility] [address] [place] [address] Dr. Felisa Trujillo MCH (RBC) [Entitic mass] 31.5 pg Normal 26.7-34.0 [place] Comment on above: Performed By: #### C BC #### [facility] [address] [place] [address] Dr. Felisa Trujillo MCHC (RBC) [Mass/Vol] 33.8 g/dL Normal 29.9-35.2 [place] Comment on above: Performed By: #### C BC #### [facility] [address] [place] [address] [address] Felisa Trujillo MCV (RBC) [Entitic vol] 93.1 fL Normal 81.0-99.0 [place] Comment on above: Performed By: #### C BC #### [facility] [address] [place] [address] [address] Felisa Trujillo MONO # 0.6 103/ul Normal 0.3-0.8 [place] Comment on above: Performed By: #### C BC #### [facility] [address] [place] [address] [address] Felisa Trujillo Monocytes/100 WBC (Bld) 8.5 % Normal 1.7-12.0 [place] Comment on above: Performed By: #### C BC #### [facility] [address] [place] [address] [address] Felisa Trujillo NEUT # 3.7 103/ul Normal 1.4-6.5 [place] Comment on above: Performed By: #### C BC #### [facility] [address] [place] [address] [address] Felisa Trujillo Neutrophils/100 WBC (Bld) 56.5 % Normal 43.0-75.0 [place] Comment on above: Performed By: #### C BC #### [facility] [address] [place] [address] [address] Felisa Trujillo Platelet mean volume (Bld) [Entitic vol] 9.9 fL Normal 9.5-13.5 [facility] Comment on above: Performed By: #### C BC #### [facility] [address] [place] [address] [address] Felisa Trujillo PLT 193 103/ul Normal 150-450 [facility] Comment on above: Performed By: #### C BC #### [facility] [address] [place] [address] [address] Felisa Trujillo RBC 4.32 106/ul Normal 4.20-5.40 [facility] Comment on above: Performed By: #### C BC #### [facility] [address] [place] [address] [address] Felisa Trujillo WBC 6.5 103/ul Normal 4.0-11.0 [place] Comment on above: Performed By: #### C BC #### [facility] Laboratory [address] [address] [address] Felisa Trujillo Covid-19 PCR ([facility])on 10-09 SARS-CoV-2 (COVID-19) RNA DUGLAS+probe Ql (Unsp spec) Not detected Normal NOT DETECTED [facility] Comment on above: Result Comment: When diagnostic [...] for this test is supported by the Paint Grinder of Health and Human Service's declaration that [...] used). Performed By: #### C VDTBH #### [facility] [address] [address] [address] Felisa Trujillo LACTATE/LACTIC ACIDon 2021 Lactate [Moles/Vol] 1.0 mmol/L Normal 0.4-2.0 [facility] Comment on above: Performed By: #### L ACT ####[facility] [address] [address]Dr. Felisa Trujillo PH VENOUS BLOODon 11-02-2021 PCO2 VENOUS 40.3 mmHg Normal 40.0-52.0 [place] Comment on above: Performed By: #### P HVEN ####[facility] [address] [address]Dr. Felisa Trujillo pH VENOUS 7.431 Critically high 7.330-7.430 [facility] Comment on above: Performed By: #### P HVEN ####[facility] [address] [address]Dr. Fleisa Trujillo PROF 14(COMP METB)on 022 Albumin [Mass/Vol] 4.1 g/dL Normal 3.4-5.0 [facility] Comment on above: Performed By: #### H STROPN, CMP, BNP ####[facility] [address] [address]Dr. Felisa Trujillo Albumin/Globulin [Mass ratio] 1.1 {ratio} Normal [place] Comment on above: Performed By: #### H STROPN, CMP, BNP ####[facility] [address] [address]Dr. Felisa Trujillo ALP [Catalytic activity/Vol] 120 U/L Critically high 46-116 [place] Comment on above: Performed By: #### H STROPN, CMP, BNP ####[facility] [address] [address]Dr. Felisa Trujillo ALT [Catalytic activity/Vol] 29 U/L Normal 14-59 [place] Comment on above: Performed By: #### H STROPN, CMP, BNP ####[facility] [address] [address]Dr. Felisa Trujillo Anion gap [Moles/Vol] 14.2 mmol/L Normal [place] Comment on above: Performed By: #### H STROPN, CMP, BNP ####[facility] [address] [address]Dr. Felisa Trujillo AST [Catalytic activity/Vol] 24 U/L Normal 15-37 [place] Comment on above: Performed By: #### H STROPN, CMP, BNP ####[facility] [address] [address]Dr. Felisa Trujillo Bilirubin [Mass/Vol] 0.6 mg/dL Normal 0.2-1.0 [place] Comment on above: Performed By: #### H STROPN, CMP, BNP ####[facility] [address] [address]Dr. Felisa Trujillo Calcium [Mass/Vol] 8.8 mg/dL Normal 8.5-10.1 [facility] Comment on above: Performed By: #### H STROPN, CMP, BNP ####[facility] [address] [address]Dr. Felisa Trujillo Chloride [Moles/Vol] 103 mmol/L Normal 98-107 [place] Comment on above: Performed By: #### H STROPN, CMP, BNP ####[facility] [address] [address]Dr. Felisa Trujillo CO2 [Moles/Vol] 25.3 mmol/L Normal 21.0-32.0 [facility] Comment on above: Performed By: #### H STROPN, CMP, BNP ####[facility] [address] [place], [place] [address]Dr. Felisa Trujillo Creatinine [Mass/Vol] 0.86 mg/dL Normal 0.55-1.02 [place] Comment on above: Performed By: #### H STROPN, CMP, BNP ####[facility] [address] [place], [place] [address]Dr. Felisa Trujillo EGFR-AF INDIAN >60 Normal >=60 [facility] Comment on above: Performed By: #### H STROPN, CMP, BNP ####[facility] [address] [place], [place] [address]Dr. Felisa Trujillo EGFR-NON AF INDIAN >60 Normal >=60 [place] Comment on above: Performed By: #### H STROPN, CMP, BNP ####[facility] [address] [address]Dr. Felisa Trujillo Globulin (S) [Mass/Vol] 3.6 g/dL Normal [place] Comment on above: Performed By: #### H STROPN, CMP, BNP ####[facility] [address] [address]Dr. Felisa Trujillo Glucose [Mass/Vol] 90 mg/dL Normal 74-106 [facility] Comment on above: Performed By: #### H STROPN, CMP, BNP ####[facility] [address] [address]Dr. Felisa Trujillo Potassium [Moles/Vol] 3.5 mmol/L Normal 3.5-5.1 [facility] Comment on above: Performed By: #### H STROPN, CMP, BNP ####[facility] [address] [address]Dr. Felisa Trujillo Protein [Mass/Vol] 7.7 g/dL Normal 6.1-8.2 [facility] Comment on above: Performed By: #### H STROPN, CMP, BNP ####[facility] [address] [address]Dr. Felisa Trujillo Sodium [Moles/Vol] 139 mmol/L Normal 136-145 [facility] Comment on above: Performed By: #### H STROPN, CMP, BNP ####[facility] [address] [address]Dr. Felisa Trujillo Urea nitrogen [Mass/Vol] 13.0 mg/dL Normal 7.0-18.0 [facility] Comment on above: Performed By: #### H STROPN, CMP, BNP ####[facility] [address] [address]Dr. Felisa Trujillo Urea nitrogen/Creatinine [Mass ratio] 15.1 mg/mg Normal [place] Comment on above: Performed By: #### H STROPN, CMP, BNP ####[facility] [address] [address]Dr. Felisa Trujillo PROTIMEon 11-02-2021 INR Coag (PPP) [Relative time] 0.99 {INR} Normal [facility] Comment on above: Performed By: #### P TT, PT #### [facility] [address] [address] [address] Felisa Trujillo INR GUIDELINES SEE BELOW Normal [facility] Comment on above: Result Comment: KAY RED INR: 2.0 - 3.0 CONDITIONS NOT LISTED BELOW 2.5 - 3.5 FOR PROSTHETIC HEART VALVE REPLACEMENT 2.5 - 3.5 RECURRENT THROMBOSIS Performed By: #### P TT, PT #### [facility] [address] [place] [address] Dr. Felisa Trujillo PT Coag (PPP) [Time] 10.7 s Normal 9.0-11.6 [facility] Comment on above: Performed By: #### P TT, PT #### [facility] [address] [place] [address] Dr. Felisa Trujillo PTTon 11-02-2021 aPTT Coag (Bld) [Time] 25.9 s Normal 22.3-36.2 [facility] Comment on above: Performed By: #### P TT, PT #### [facility] [address] [place] [address] Dr. Felisa Trujillo TROPONIN, HIGH SENSITIVITYon 11-02-2021 HSTROP 8.7 pg/mL Normal 4.0-51.3 [facility] Comment on above: Result Comment: CUT- OFF POINTS HAVE BEEN ESTABLISHED BASED ON THE FOURTH UNIVERSAL DEFINITIONS OF MYOCARDIAL INFARCTION. THE UPPER REFERENCE LIMIT (URL) OF TROPONIN, DEFINED THE 99TH PERCENTILE OF cTnI DISTRIBUTION IN A REFERENCE POPULATION, HAS BEEN CONFIRMED THE DECISION THRESHOLD FOR [place] DIAGNOSIS. Performed By: #### H STROPN, CMP, BNP #### [facility] [address] [place] [address] Dr. Felisa Trujillo Covid-19 PCR (CVDTB)on SARS-CoV-2 (COVID-19) RNA DUGLAS+probe Ql (Unsp spec) Not detected Normal NOT DETECTED [facility] Comment on above: Result Comment: This test is not yet approved or cleared by the [place] FDA. When there are no FDA-approved or cleared tests available, and other criteria are met, FDA can make tests available under an emergency access mechanism called an Emergency Use Authorization (EUA). The EUA for this test is supported by the Paint Grinder of Health and Human Service's (HHS's) declaration [...] consistent with SARS-CoV-2. Performed By: #### C [facility] #### [facility] [address], [place] [address] Dr. Felisa Trujillo XR CHEST 2 Von [...] by: MEHNAZ SANTIAGO Date: 2021-09-02 14:39 Normal [place] [facility] - AP Resultson 9 Lab - AP Results [id number]#1.00OT GTIFF Normal [facility] Pathology Sendout Teston Pathology Send Out. See Report Normal [facility] Comment on above: Order Comment: left ring finger , cyst tendon sheath Performed By: #### 2 [id number] ####[facility] (DEFAULT)[address] [place] [address] Coding Summaryon 02-08-2019 Coding Summary CODING DATE: 019 [facility] STATUS: Home PAYOR: Medicare MC APC DESCRIPTION 5112 Level 2 Musculoskeletal Procedures ADMIT DX: REASON FOR VISIT DX: M65.342 Trigger finger, left ring finger FINAL DX: PRINCIPAL: M65.342 Trigger finger, left ring finger SECONDARY: M67.442 Ganglion, left hand J44.9 Chronic obstructive pulmonary disease, unspecified PYMT PROC APC STAT DESCRIPTION DOCTOR NAME DATE 33614 5112 J1 Excision of lesion of Daquan [...] Cassy Bradley Date Saved: 02/08/2019 11:52 am [facility] Consent Formson 02-05-2019 Consent Forms [id number]#1.00OT [facility] Discharge Instructionson Discharge Instructions [id number]#1.00OT [facility] History and Physicalon 02-05 History and Physical [id number]#1.00OT [facility] MAGR Intraoperative Recordon 02-05-2019 MAGR Intraoperative Record MAGR Intra-Op Record Summary Primary Physician: Daquan Antunez DO Finalized Date/Time: 02/05/19 07:41:01 Pt. Name: KARYN SHEY NORMAN Willett/Sex: 1950 FEMALE Med Rec #: [id number] Physician: Daquan Antunez DO Financial #: [id number] Pt. Type: D Room/Bed: / Admit/Disch: 02/04/19 [...] Role Performed Surgeon - Primary Anesthesiologist of Manager [employer] Record Time In 02/04/19 15:31:00 02/04/19 15:31:00 02/04/19 15:31:00 Time Out 02/04/19 16:08:00 02/04/19 16:08:00 02/04/19 16:08:00 Procedure Trigger Finger Release Trigger Finger Release Trigger Finger Release Last Modified By: Toshia Plascencia RN, Barbara RN Long, Barbara RN 02/04/19 16:16:05 02/04/19 16:16:05 02/04/19 16:16:05 Entry 4 Entry 5 Case Attendee Paloma Esparza Regina CST Role Performed Scrub Personnel Risk Professional Time In 02/04/19 15:31:00 02/04/19 15:31:00 Time [...] Modify Pick List 02/05/19 07:40 MHBLONG Modify [facility] Medication Managementon 01-09 Medication Management [id number]#1.00OT [facility] Provider Orderson 02-05-2019 Provider Orders [id number]#1.00OT [facility] Anesthesia Noteon 02-04-2019 Anesthesia Note Patient: [...] Problems Chronic back pain / SNOMED CT 066883898 / Confirmed Former smoker / SNOMED CT 19070835 / Confirmed GERD (gastroesophageal reflux disease) / SNOMED CT 359757254 / Confirmed Scar tissue / SNOMED CT 852105380 / Confirmed Sleep apnea / SNOMED CT 800453210 / Confirmed Histories Family History: No family history items have been selected or recorded. Procedure history: Tonsillectomy (055326821). Epidural injection of lumbar spine using fluoroscopic guidance (9317892082). Social History Alcohol Assessment Use: Current. Beer, [...] rhythm. Review / Management Laboratory Results Plan [place] [employer]esthesiologists#(ASA) physical status classification: Class [...] on: 02/04/2019 15:44 EDT] Alirio Mcclellan MD [facility] Inpatient Patient Summaryon 02-04-2019 Inpatient [place] [address] Patient Discharge Instructions Name: SHEY BOSS : 52 Patient Address: [address] [place] [address] Primary Care Provider: Name: LATRELL JACK After you are discharged if you find you have any questions, please, call [phone] ext [phone] to speak to a nurse. Discharge Diagnosis: Trigger finger Prescription Information: If you have been given a prescription for narcotics, seek immediate medical attention if you have any difficulty breathing or any sudden status changes such as confusion and sleepiness. If you or anyone you know is experiencing suicidal thoughts, mental health, alcohol and/or drug addiction problems; contact the [facility] 30/01 Crisis Hotline -Text 4HITC db 722123. If you received any narcotics, sedation, or [...] Instructions With: Address: When: Daquan Antunez [address], [address] [place], [place] [address] Business (2) 02/12/2019 2:00 PM With: Address: When: LATRELL JACK [address] [place], [place] [id number] Business (1) Medications During the course of [...] awake -DO NOT lift heavy objects or flight attendant inflight services forcefully with the affected hand -DO NOT [...] or concerns, please call the office at [phone] or go to the emergency room -Follow [...] for Disease Control and Prevention March 2014 [facility] MAGR Postoperative Recordon 02-04-2019 MAGR Postoperative Record MAGR Phase II Record Summary Primary Physician: Daquan Antunez DO Finalized Date/Time: 02/04/19 17:11:50 Pt. Name: SHEY BOSS/Sex: 1950 FEMALE Med Rec #: [id number] Physician: Daquan Antunez DO Financial #: [id number] Pt. Type: D Room/Bed: / Admit/Disch: 02/04/19 [...] Signed By: Stefanie Garibay RN 02/04/19 17:11 [facility] Preoperative Recordon 0 02-04-2019 [facility] MAGR Pre-Op Record Summary Primary Physician: Daquan Antunez DO Finalized Date/Time: 02/04/19 15:37:19 Pt. Name: KARYNSHEY /Sex: 1950 FEMALE Med Rec #: [id number] Physician: Daquan Antunez DO Financial #: [id number] Pt. Type: D Room/Bed: / Admit/Disch: 02/04/19 [...] By: Toshia Plascencia RN 02/04/19 15:37 Normal [facility] Operative Report - Surgeon/P shalini 02-04-2019 [...] cc of 1% lidocaine injected locally by ga )transverse incision was made over the A1 [...] on: 02/04/2019 16:37 EDT] Daquan Antunez DO [facility] Patient Handouton 02-04-[address] OHARA POST OPERATIVE INSTRUCTIONS FOR FINGER SURGERY/MALLET FINGER REPAIR SURGEONS WRITTEN INSTRUTCTIONS:' -Keep your hand elevated above your elbow for the first 24 hours after surgery and apply an ice bag at intervals for the first 24 hours -Wiggle the unaffected fingers frequently while awake -DO NOT lift heavy objects or flight attendant inflight services forcefully with the affected hand -DO NOT [...] or concerns, please call the office at [phone] or go to the emergency room -Follow up as scheduled [facility] Progress Note - Nurseon 01-08 Progress Note - Nurse Spoke with pt regarding arrival time of 1145 and NPO status. Verbalized understanding. 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 Verbalized understanding. [Electronically Signed on: 02/01/2019 14:53 EDT] Kika Akers RN [Verified on: 02/01/2019 14:53 EDT] Kika Akers RN [facility] Coding Summaryon 01-29-2019 Coding Summary CODING DATE: 019 [facility] STATUS: Home PAYOR: Medicare MC APC DESCRIPTION [...] [facility] .Auto Diff 1on 01-28-2019 Auto [place] % 8 % Normal 1-12 [facility] Comment on above: Performed By: #### 7 [id number], [id number] #### [facility] (DEFAULT) [address] [place] [address]307 Baso Abs# 0.0 x10 Normal 0.0-0.2 [facility] Comment on above: Performed By: #### 7 [id number], [id number] #### [facility] (DEFAULT) [address] [place] [address] Basophils/100 WBC (Bld) 0.4 % Normal 0.2-2.0 [facility] Comment on above: Performed By: #### 7 [id number], [id number] #### [facility] (DEFAULT) [address] [place] [address] 09478 Eos Abs# 0.2 x10 Normal 0.0-0.4 [facility] Comment on above: Performed By: #### 7 [id number], [id number] #### [facility] (DEFAULT) [address] [place] [address] 92061 Eosinophils/100 WBC (Bld) 3.5 % Normal 0.9-4.0 [facility] Comment on above: Performed By: #### 7 [id number], [id number] #### [facility] (DEFAULT) [address] [place] [address] 07729 Lymphocytes (Bld) [#/Vol] 1.6 x10 Normal 1.3-2.9 [facility] Comment on above: Performed By: #### 7 [id number], [id number] #### [facility] (DEFAULT) [address] [place] [address] 40838 Lymphocytes/100 WBC (Bld) 32 % Normal 14-48 [facility] Comment on above: Performed By: #### 7 [id number], [id number] #### [facility] (DEFAULT) [address] [place] [address] [place] Abs# 0.4 x10 Normal 0.0-0.8 [facility] Comment on above: Performed By: #### 7 [id number], [id number] #### [facility] (DEFAULT) [address] [place] [address] 09319 Neut Abs# 2.8 x10 Normal 1.5-9.2 [facility] Comment on above: Performed By: #### 7 [id number], [id number] #### [facility] (DEFAULT) [address] [place] [address] 47176 Neutrophils/100 WBC (Bld) 56 % Normal 44-88 [facility] Comment on above: Performed By: #### 7 [id number], [id number] #### [facility] (DEFAULT) [address] [place] [address] 72144 CBC w/ Auto Diffon 9 Erythrocyte distribution width (RBC) [Ratio] 13.4 % Normal 11.5-15.0 [facility] Comment on above: Performed By: #### 7 [id number], [id number] #### [facility] (DEFAULT) [address] [place] [address] 61262 Hematocrit (Bld) [Volume fraction] 40.4 % Normal 33.7-40.4 [facility] Comment on above: Performed By: #### 7 [id number], [id number] #### [facility] (DEFAULT) [address] [place] [address] 74675 Hemoglobin (Bld) [Mass/Vol] 13.9 g/dL Normal 11.3-15.9 [facility] Comment on above: Performed By: #### 7 [id number], [id number] #### [facility] (DEFAULT) [address] [place] [address] Man Diff? Auto Normal [facility] Comment on above: Performed By: #### 7 [id number], [id number] #### [facility] (DEFAULT) [address] [place] [address] 21457 MCH (RBC) [Entitic mass] 31 pg Normal 24-34 [facility] Comment on above: Performed By: #### 7 [id number], [id number] #### [facility] (DEFAULT) [address] [place] [address] 71746 MCHC (RBC) [Mass/Vol] 34 g/dL Normal 26-37 [facility] Comment on above: Performed By: #### 7 [id number], [id number] #### [facility] (DEFAULT) [address] [place] [address] 14631 MCV (RBC) [Entitic vol] 90 fL Normal 81-100 [facility] Comment on above: Performed By: #### 7 [id number], [id number] #### [facility] (DEFAULT) [address] [place] [address] 82694 Platelet mean volume (Bld) [Entitic vol] 10.3 fL High 6.3-10.2 [facility] Comment on above: Performed By: #### 7 [id number], [id number] #### [facility] (DEFAULT) [address] [place] [address] 97599 Platelets (Bld) [#/Vol] 199 x10 Normal 138-427 [facility] Comment on above: Performed By: #### 7 [id number], [id number] #### [facility] (DEFAULT) [address] [place] [address] 12137 RBC (Bld) [#/Vol] 4.47 x10 Normal 3.70-5.30 [facility] Comment on above: Performed By: #### 7 [id number], [id number] #### [facility] (DEFAULT) [address] [place] [address] 58203 WBC (Bld) [#/Vol] 5.1 x10 Normal 3.5-10.5 [facility] Comment on above: Performed By: #### 7 [id number], [id number] #### [facility] (DEFAULT) [address] [place] [address]25 Vital Signs Date Time Vital Sign Value Performing Clinician Facility 05-15-2024 10:02-0500 Body height 160 cm Latrell Jack MD Work Phone: [facility] 05-15-2024 10:02-0500 Body mass index (BMI) [Ratio] 38.26 kg/m2 Latrell Jack MD Work Phone: [facility] 05-15-2024 10:02-0500 Body temperature 97.11 [degF] Latrell Jack MD Work Phone: [facility] 05-15-2024 10:02-0500 Body weight 97.98 kg Latrell Jack MD Work Phone: [facility] 05-15-2024 10:02-0500 Diastolic blood pressure 80 mm[Hg] Latrell Jack MD Work Phone: [facility] 05-15-2024 10:02-0500 Heart rate 78 /min Latrell Jack MD Work Phone: [facility] 05-15-2024 10:02-0500 Respiratory rate 22 /min Latrell Jack MD Work Phone: [facility] 05-15-2024 10:02-0500 SaO2% (BldA) [Mass fraction] 97 % Latrell Jack MD Work Phone: [facility] 05-15-2024 10:02-0500 Systolic blood pressure 148 mm[Hg] Latrell Jack MD Work Phone: [facility] 04-29-2024 10:55-0400 Body height 152.4 cm Xavier Boyd MD Work Phone: [facility] 04-29-2024 10:55-0400 Body mass index (BMI) [Ratio] 42.58 kg/m2 Xavier Boyd MD Work Phone: [facility] 04-29-2024 10:55-0400 Body temperature 98.49 [degF] Xavier Boyd MD Work Phone: [facility] 04-29-2024 10:55-0400 Body weight 98.88 kg Xavier Boyd MD Work Phone: [facility] 04-29-2024 10:55-0400 Diastolic blood pressure 65 mm[Hg] Xavier Boyd MD Work Phone: [facility] 04-29-2024 10:55-0400 Heart rate 90 /min Xavier Boyd MD Work Phone: [facility] 04-29-2024 10:55-0400 Systolic blood pressure 144 mm[Hg] Xavier Boyd MD Work Phone: [facility] 03-20-2024 13:23-0400 Diastolic blood pressure 81 mm[Hg] [facility] 03-20-2024 13:23-0400 Heart rate 66 /min [facility] 03-20-2024 13:23-0400 Mean blood pressure 112 mm[Hg] [facility] 03-20-2024 13:23-0400 Respiratory rate 15 /min [facility] 03-20-2024 13:23-0400 SaO2% (BldA) [Mass fraction] 94 % [facility] 03-20-2024 13:23-0400 Systolic blood pressure 173 mm[Hg] [facility] 03-20-2024 13:15-0400 Diastolic blood pressure 78 mm[Hg] [facility] 03-20-2024 13:15-0400 Heart rate 64 /min [facility] 03-20-2024 13:15-0400 Mean blood pressure 105 mm[Hg] [facility] 03-20-2024 13:15-0400 Respiratory rate 13 /min [facility] 03-20-2024 13:15-0400 SaO2% (BldA) [Mass fraction] 96 % [facility] 03-20-2024 13:15-0400 Systolic blood pressure 159 mm[Hg] [facility] 03-20-2024 13:05-0400 Diastolic blood pressure 76 mm[Hg] [facility] 03-20-2024 13:05-0400 Heart rate 64 /min [facility] 03-20-2024 13:05-0400 Mean blood pressure 99 mm[Hg] [facility] Sar[facility] 03-20-2024 13:05-0400 Respiratory rate 12 /min [facility] Sar[facility] 03-20-2024 13:05-0400 SaO2% (BldA) [Mass fraction] 96 % [facility] 03-20-2024 13:05-0400 Systolic blood pressure 145 mm[Hg] [facility] Sar[facility] 03-20-2024 12:58-0400 Body temperature 97.16 [degF] [facility] Sar[facility] 03-20-2024 12:50-0400 Respiratory rate 15 /min [facility] Sar[facility] 03-20-2024 12:45-0400 Respiratory rate 18 /min [facility] Sar[facility] 03-20-2024 11:14-0400 Blood Pressure Location [facility] Sar[facility] 03-20-2024 11:14-0400 Body temperature 97.7 [degF] [facility] 03-20-2024 11:14-0400 Respiratory rate 18 /min [facility] Sar[facility] 02-26-2024 09:12-0400 Blood Pressure Location Leos Sarmini [facility] 02-26-2024 09:12-0400 Diastolic blood pressure 81 mm[Hg] Leos Sarmini [facility] 02-26-2024 09:12-0400 Heart rate 66 /min Leos Sarmini [facility] 02-26-2024 09:12-0400 Respiratory rate 16 /min Leos Sarmini [facility] 02-26-2024 09:12-0400 Systolic blood pressure 131 mm[Hg] Leos Sarmini [facility] 10-13-2023 09:42-0400 Diastolic blood pressure 80 mm[Hg] Pa N[facility] 10-13-2023 09:42-0400 Heart rate 69 /min Pa N[facility] 10-13-2023 09:42-0400 Mean blood pressure 102 mm[Hg] Pa NILL Brown [facility]13[facility]23 09:42-0400 Respiratory rate 15 /min Pa NILL [facility] 10-13-2023 09:42-0400 SaO2% (BldA) [Mass fraction] 97 % [facility] N[facility] 10-13-2023 09:42-0400 Systolic blood pressure 146 mm[Hg] [facility] N[facility] 10-13-2023 09:32-0400 Diastolic blood pressure 76 mm[Hg] [facility] NILL [facility] 10-13-2023 09:32-0400 Heart rate 67 /min Pa NILL [facility] 10-13-2023 09:32-0400 Mean blood pressure 94 mm[Hg] Pa NILL [facility] 10-13-2023 09:32-0400 Respiratory rate 20 /min Pa NILL [facility] 10-13-2023 09:32-0400 SaO2% (BldA) [Mass fraction] 95 % Pa NILL [facility] 10-13-2023 09:32-0400 Systolic blood pressure 129 mm[Hg] Pa NILL [facility] 10-13-2023 09:27-0400 Diastolic blood pressure 71 mm[Hg] Pa NILL [facility] 10-13-2023 09:27-0400 Heart rate 70 /min Pa NILL [facility] 10-13-2023 09:27-0400 Mean blood pressure 92 mm[Hg] Pa NILL [facility] 10-13-2023 09:27-0400 Respiratory rate 15 /min Pa NILL [facility] 10-13-2023 09:27-0400 SaO2% (BldA) [Mass fraction] 96 % Pa NILL [facility] 10-13-2023 09:27-0400 Systolic blood pressure 134 mm[Hg] Pa PALMERL [facility] 10-13-2023 09:17-0400 Body temperature 97.16 [degF] Pa PALMERL [facility] 10-13-2023 09:10-0400 Respiratory rate 16 /min Pa PALMERL [facility] 10-13-2023 09:05-0400 Respiratory rate 16 /min Pa PALMERL [facility] 10-13-2023 08:03-0400 Body temperature 97.34 [degF] Pa WEBB [facility] 08-11-2023 09:53-0500 Body height 160 cm Latrell Jack MD Work Phone: [facility] 08-11-2023 09:53-0500 Body mass index (BMI) [Ratio] 40.39 kg/m2 Latrell Jack MD Work Phone: [facility] 08-11-2023 09:53-0500 Body temperature 97.11 [degF] Latrell Jack MD Work Phone: [facility] 08-11-2023 09:53-0500 Body weight 103.42 kg Latrell Jack MD Work Phone: [facility] 08-11-2023 09:53-0500 Diastolic blood pressure 70 mm[Hg] Latrell Jack MD Work Phone: [facility] 08-11-2023 09:53-0500 Heart rate 94 /min Latrell Jack MD Work Phone: [facility] 08-11-2023 09:53-0500 SaO2% (BldA) [Mass fraction] 97 % Latrell Jack MD Work Phone: [facility] 08-11-2023 09:53-0500 Systolic blood pressure 140 mm[Hg] Latrell Jack MD Work Phone: [facility] Healthcare Encounters Encounter Date Encounter Type Care Provider Facility Start: 05-15-2024 End: 05-15-2024 Office outpatient visit 25 minutes Latrell Jack MD Work Phone: [facility] Comment on above: Essential hypertensi on, benign ([facility]/HCC) (Primary Dx); Chronic obstructive pulmonary disease, unspecified COPD type (CMS/[facility]); Hiatal hernia with gastroesophageal reflux disease without esophagitis; EDWIN (obstructive sleep apnea); Primary osteoarthritis of both knees; Primary insomnia; Class 2 severe obesity due to excess calories with serious comorbidity and body mass index (BMI) of 38.0 to 38.9 in adult (CMS/HCC) Start: 05-15-2024 End: 05-15-2024 ambulatory LATRELL JACK Not Available Start: 05-06-2024 End: 05-06-2024 ambulatory Talat Arguello MD Facility:[facility] Start: 05-04-2024 End: 05-06-2024 ambulatory Xavier Boyd MD Work Phone: [facility] Comment on above: 07.24.24 Cure (Lap P araesophageal Hernia Repair/EGD 4 hours los 1) Start: 05-04-2024 End: 05-06-2024 Preprocedural examination done Xavier Boyd MD Work Phone: [facility] Start: 04-29-2024 End: 04-29-2024 ambulatory XAVIER BOYD Facility:[facility] Start: 04-29-2024 End: 04-29-2024 Office outpatient new 45 minutes Xavier Boyd MD Work Phone: General Surgery Comment on above: Paraesophageal herni a (Primary Dx) Start: 04-22-2024 End: 04-22-2024 Telephone encounter Ashlie Calderon MA General Surgery Start: 04-15-2024 End: 04-15-2024 ambulatory Talat Arguello MD Facility:[facility] Start: 04-11-2024 End: 04-11-2024 Patient encounter procedure Mao Morrow PhD Work Phone: [facility] Comment on above: Memory loss (Primary Dx); Word finding difficulty; EDWIN on CPAP; Other insomnia; Other chronic pain; Generalized anxiety disorder (CMS/HCC); Severe episode of recurrent major depressive disorder, 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) Start: 04-11-2024 End: 04-11-2024 ambulatory LATRELL JACK Not Available Start: 03-26-2024 End: 03-26-2024 ambulatory MAO MORROW Not Available Start: 03-26-2024 End: 03-26-2024 ambulatory Leos Talal Sarmini Facility:[facility] Start: 03-25-2024 End: 03-25-2024 ambulatory DIOMEDES JUJU Not Available Start: 03-20-2024 End: 03-20-2024 ambulatory Leos Talal Sarmini Facility:[facility] Start: 03-20-2024 End: 03-20-2024 Patient encounter procedure Leos Talal Sarmini [facility] Start: 03-07-2024 End: 03-07-2024 ambulatory DIOMEDES MATUTE Not Available Start: 02-26-2024 End: 02-26-2024 ambulatory Leos Talal Sarmini Facility:[facility] Start: 02-26-2024 End: 02-26-2024 Patient encounter procedure Leos Talal Sarmini [facility] Start: 02-13-2024 ambulatory Pa PALMERL Facility:[facility] Start: 02-09-2024 End: 02-09-2024 ambulatory LATRELL JACK Not Available Start: 10-13-2023 End: 10-13-2023 ambulatory Pa R NILL Facility:[facility] Start: 10-13-2023 End: 10-13-2023 Patient encounter procedure Pa WEBB [facility] Start: 09-12-2023 End: 09-12-2023 ambulatory Pa WEBB Facility:[facility] Start: 09-05-2023 ambulatory Pa WEBB Facility:[facility] Start: 08-11-2023 Bamboo flowsheet [...] for prepro cedural laboratory examination MARNIE PEMBERTON [place] Start: 09-07-2021 End: 09-07-[address] LATRELL JACK Facility:[facility] Start: 09-07-2021 End: 09-07-2021 Encounter for preprocedural laboratory examination DR LATRELL JACK Facility:[facility] Start: 09-03-2021 Encounter for prepro cedural cardiovascular examination MARNIE PEMBERTON [place] Start: 09-02-2021 End: 09-03-[address] LATRELL JACK Facility:[facility] Start: 09-02-2021 End: 09-03-2021 Encounter for preprocedural cardiovascular examination DR LATRELL JACK Facility:[facility] Procedures Date Procedure Procedure Detail Performing Clinician Start: 03-20-2024 Esophagogastroduodenoscopy Katie Ameyacas george Start: 11-28-2023 Mammography Mao Morrow PhD [...] for malign ant neoplasm of colon [facility] Start: 09-21-2026 RSV Vaccine (1 - 1-d ose 75+ series) RSV Vaccine (1 - 1-dose 75+ series) [facility] Start: 11-27-2024 Screening for malign ant neoplasm of breast Mammogram [facility] Start: 08-16-2024 End: 08-16-2024 Patient encounter procedure 08/16/2024 9:00 AM EST [facility] [address] [place] [phone] Latrell Jack MD [address] [place] [phone] [facility] Start: 07-24-2024 Subsequent hospital visit by physician 07/24/2024 Hospital Encounter Admitting [address] [place] [address] Xavier Boyd MD [address] [place] [address] Preoperative examination [Z01.818], Paraesophageal hernia [K44.9] Admitting Comment on above: Preoperative examina tion [Z01.818], Paraesophageal hernia [K44.9] Start: 06-29-2024 End: 10-29-2024 aPTT in Platelet poor plasma by Coagulation assay ACTIVATED PARTIAL THROMBOPLASTIN TIME Lab Routine Preoperative examination Paraesophageal hernia Abnormal coagulation profile Expected: 06/29/2024, Expires: 10/29/2024 [facility] Comment on above: Expected: 06/29/2024 , Expires: 10/29/2024 Start: 06-29-2024 End: 10-29-2024 CBC W Auto Differential panel - Blood COMPLETE BLOOD COUNT AND DIFFERENTIAL Lab Routine Preoperative examination Paraesophageal hernia Expected: 06/29/2024, Expires: 10/29/2024 [facility] Comment on above: Expected: 06/29/2024 , Expires: 10/29/2024 Start: 06-29-2024 End: 10-29-2024 Comprehensive metabolic 2000 panel - Serum or Plasma COMPREHENSIVE METABOLIC PANEL Lab Routine Preoperative examination Paraesophageal hernia Expected: 06/29/2024, Expires: 10/29/2024 [facility] Comment on above: Expected: 06/29/2024 , Expires: 10/29/2024 Start: 06-29-2024 End: 10-29-2024 PT panel - Platelet poor plasma by Coagulation assay PROTHROMBIN TIME Lab Routine Preoperative examination Paraesophageal hernia Abnormal results of liver function studies Expected: 06/29/2024, Expires: 10/29/2024 [facility] Comment on above: Expected: 06/29/2024 , Expires: 10/29/2024 Start: 06-29-2024 End: 10-29-2024 TYPE AND SCREEN,30 DAY TYPE AND SCREEN,30 DAY Blood Bank Routine Preoperative examination Paraesophageal hernia Expected: 06/29/2024, Expires: 10/29/2024 [facility] Comment on above: Expected: 06/29/2024 , Expires: 10/29/2024 Start: 05-30-2024 End: 05-30-2024 Patient encounter procedure 05/30/2024 3:40 PM EST Office Visit [facility] [address] [place] [address] Sandra Arcos NP [address] [place], [place] [facility] Start: 05-15-2024 End: 05-15-2024 Patient encounter procedure 05/15/2024 10:00 AM EST Office Visit [facility] [address] [place] [phone] Latrell Jack MD [address] [place] [phone] [facility] Start: 04-29-2024 End: 04-29-2024 Patient encounter procedure 04/29/2024 11:00 AM EDT Office Visit General Surgery [address] [address] Xavier Boyd MD [address] [place], [place] [id number] Hiatal Hernia General Surgery Comment on above: Hiatal Hernia Start: 03-10-2024 Covid-19 Vaccine ( season) Covid-19 Vaccine ( season) [facility] Start: 03-10-2024 Covid-19 Vaccine ( season) Covid-19 Vaccine ( season) [facility] Start: 03-10-2024 Influenza vaccination Influenza Vacc ine (#1) [facility] Start: 02-09-2024 End: 02-09-2024 Patient encounter procedure 02/09/2024 9:45 AM EDT Office Visit [facility] [address] [place] [phone] Latrell Jack MD [address] [place] [address] [facility] Start: 08-11-2023 End: 08-11-2024 Basic metabolic 1998 panel - Serum or Plasma Basic metabolic panel Lab Routine Encounter for long-term (current) use of medications Expected: 08/11/2023 (Approximate), Expires: 08/11/2024 [facility] Comment on above: Expected: 08/11/2023 (Approximate), Expires: 08/11/2024 Start: 08-11-2023 End: 08-11-2024 CBC W Auto Differential panel - Blood CBC and differential Lab Routine Encounter for long-term (current) use of medications Expected: 08/11/2023 (Approximate), Expires: 08/11/2024 [facility] Comment on above: Expected: 08/11/2023 (Approximate), Expires: 08/11/2024 Start: 08-11-2023 End: 08-11-2024 Hemoglobin A1c measurement Hemoglobin A1c Lab Routine Morbid obesity due to excess calories (CMS/HCC) Expected: 08/11/2023 (Approximate), Expires: 08/11/2024 [facility] Work Phone: Comment on above: Expected: 08/11/2023 (Approximate), Expires: 08/11/2024 Start: 08-11-2023 End: 08-11-2024 Hepatic function 2000 panel - Serum or Plasma Hepatic function panel Lab Routine Encounter for long-term (current) use of medications Expected: 08/11/2023 (Approximate), Expires: 08/11/2024 [facility] Comment on above: Expected: 08/11/2023 (Approximate), Expires: 08/11/2024 Start: 08-11-2023 End: 08-11-2024 Lipid 1996 panel - Serum or Plasma Lipid panel Lab Routine Dyslipidemia (CMS/HCC) Expected: 08/11/2023 (Approximate), Expires: 08/11/2024 [facility] Comment on above: Expected: 08/11/2023 (Approximate), Expires: 08/11/2024 Start: 08-11-2023 End: 08-11-2024 Thyrotropin [Units/volume] in Serum or Plasma TSH Lab Routine Morbid obesity due to excess calories (CMS/HCC) Expected: 08/11/2023 (Approximate), Expires: 08/11/2024 [facility] Comment on above: Expected: 08/11/2023 (Approximate), Expires: 08/11/2024 Start: 08-11-2023 End: 08-11-2023 Patient encounter procedure 08/11/2023 9:45 AM EST Office Visit [facility] [address] [place] [phone] Latrell Jack MD [address] [place] [phone] Arrived [facility] Comment on above: Arrived Start: 07-10-2023 Advance Directive Discussion Advance Directive Discussion [facility] Start: 03-10-2023 Influenza vaccination Influenza Vacc ine (#1) [facility] Start: 09-21-2016 Screening for osteoporosis Bone Density Screening [facility] Start: 09-21-2001 Shingrix Vaccine (1 of 2) Shingrix Vaccine (1 of 2) [facility] Start: 09-21-1996 Diabetes Screening Diabetes Screenin g [facility] Start: 09-21-1996 Lipid panel Lipid Screening [facility] Start: 09-21-1996 Screening for malign ant neoplasm of colon [facility] Start: 1991 Screening for malign ant neoplasm of breast [facility] Start: 09-21-1970 Urine microalbumin profile DTaP,Tdap,Td Vaccine (1 - Tdap) [facility] Start: 09-21-1969 Anxiety Screening Anxiety Screening [facility] Start: 09-21-1969 Depression Screening Depression Scre ening [facility] Start: 09-21-1969 Hepatitis C screening Hepatitis C Sc reening [facility] Start: 1951 Screening for malign ant neoplasm of colon [facility] End: 05-04-2025 ECG COMPLETE ECG COMPLETE ECG Routine Preoperative examination Paraesophageal hernia 1 Occurrences starting 05/06/2024 until 05/04/2025 [facility] Comment on above: 1 Occurrences starti ng 05/06/2024 until 05/04/2025 Laps rpr paraesphgl hrna incl fundplsty w/mesh LAPAROSCOPIC RPR PARAESOPHAGEAL HERNIA W/O FUNDOPLASTY W/ MESH Preoperative examination Paraesophageal hernia [facility] REFER FOR ADMIT INTERVIEW REFER FOR ADMIT INTERVIEW Procedures Routine Preoperative examination Paraesophageal hernia Ordered: 05/06/2024 [facility] Work Phone: Comment on above: Ordered: 05/06/2024 Immunizations Immunization Date Immunization Notes Care Provider Fa cility 04-09-2023 influenza virus vacc ine, unspecified formulation Pa ESTELAL [facility] 05-03-2022 SARS-CoV-2 (COVID-19 ) [id number] Pa PALMERL [facility] 05-03-2022 influenza virus vacc ine, unspecified formulation Latrell Jack MD Work Phone: [facility] 11-25-2021 pneumococcal conjuga te vaccine, 13 valent Mao Morrow PhD Work Phone: [facility] 04-12-2021 influenza virus vacc ine, unspecified formulation Leos Ameyaalberto [facility] 04-12-2021 SARS-CoV-2 (COVID-19 ) mRNA BNT-162b2 vax Pa ZIIBRAL [facility] Comment on above: Result Comment: 2023: [id number] 09-14-2020 SARS-CoV-2 (COVID-19 ) mRNA BNT-162b2 vax Gura GearL [facility] Comment on above: Result Comment: 2023: [id number] 08-27-2020 SARS-CoV-2 (COVID-19 ) mRNA BNT-162b2 vax Pa NILL [facility] Comment on above: Result Comment: 2023: [id number] 06-16-2020 influenza virus vacc ine, unspecified formulation Leos Sarmini [facility] 05-16-2019 influenza virus vacc ine, unspecified formulation Leos Sarmini [facility] 05-16-2019 pneumococcal polysaccharide vaccine, 23 valent Leos Sarmini [facility] 05-12-2018 influenza virus vacc ine, unspecified formulation Leos Sarmini [facility] 01-31-2018 pneumococcal conjuga te vaccine, 13 valent Leos Sarmini [facility] 05-10-2016 influenza virus vacc ine, unspecified formulation Leos Sarmini [facility] 04-16-2015 influenza virus vacc ine, unspecified formulation Leos Sarmini [facility] Payers Date Payer Category Payer Private Health Insurance [id number] 2016 Medicare [id number] 2016 Unknown 1959 Medicare [id number] 1959 Private Health Insurance [id number] 1951 Unknown [id number] 2.16.84 0.1.475275.3.579.2.593 1951 Unknown [id number] 2.16.84 0.1.744741.3.579.2.593 1951 Unknown [id number] 2.16.84 0.1.571637.3.579.2.593 1951 Unknown [id number] 2.16.84 0.1.177222.3.579.2.593 1951 Unknown [id number] 2.16.84 0.1.876885.3.579.2.593 1951 Unknown [id number] 2.16.84 0.1.724181.3.579.2.593 1951 Unknown [id number] 2.16.84 0.1.897333.3.579.2.593 1951 Unknown [id number] 2.16.8 40.1.645187.3.579.2.727 1951 Unknown [id number] 2.16.8 40.1.999229.3.579.2.727 1951 Unknown [id number] 2.16.8 40.1.318662.3.579.2.727 1951 Unknown [id number] 2.16.8 40.1.603115.3.579.2.727 1951 Unknown [id number] 2.16.8 40.1.480914.3.579.2.727 1951 Unknown [id number] 2.16. 840.1.294024.3.579.2.196 1951 Unknown [id number] 2.16. 840.1.785992.3.579.2.196 1951 Unknown [id number] 2.16.84 0.1.865199.3.579.2.1259 1951 Unknown [id number] 2.16.84 0.1.102563.3.579.2.1259 1951 Unknown [id number] 2.16.84 0.1.660847.3.579.2.1259 1951 Unknown [id number] 2.16.84 0.1.445769.3.579.2.1259 1951 Unknown [id number] 2.16.84 0.1.773147.3.579.2.1259 1951 Unknown [id number] 2.16.84 0.1.825993.3.579.2.1259 1951 Unknown [id number] 2.16.84 0.1.364709.3.579.2.1259 Social History Date Type Detail Facility Start: 08-05-2023 End: 03-07-2024 Tobacco smoking status NHIS Ex-smoker [facility] Start: 07-10-1967 End: 01-08-2012 History of tobacco use Current smoker [facility] Start: 07-10-1967 End: 01-08-2012 History of tobacco use Cigarette Smoker [facility] Start: 08-05-2023 End: 02-02-2024 Cigarettes smoked current (pack per day) - Reported 1 [facility] Start: 08-05-2023 End: 02-02-2024 Tobacco use panel [facility] Start: 1950 Sex Assigned At Not on file [facility] Start: 08-11-2023 End: 03-07-2024 Tobacco use and exposure Smokeless tobacco non-user [facility] Tobacco smoking status Never [facility] [place] Start: 03-07-2024 End: 05-15-2024 Alcoholic beverage intake Current drinker of alcohol [...] per day [facility] Tobacco smoking stat [facility] Tobacco smoking consumption unknown [facility] Start: 04-23-2024 Gender identity Identifies as female gender (finding) [facility] Functional Status Date Assessment Result Facility 03-20-2024 Functional Status N/A [facility] 02-26-2024 Functional Status N/A [facility] 10-13-2023 Functional Status N/A [facility] Clinical Notes 09-10-2021 to 05-15-2024 Latrell Jack MD - 05/15/2024 10:35 AM Bryon Jack MD - 05/15/2024 10:35 AM Bryon Jack MD - 05/15/2024 10:35 AM Bryon Jack MD - 05/15/2024 10:34 AM ESTRadiology Note Date & Type Note Facility 05-15-2024 History of Present illness Narrative Associated Problem(s): Primary osteoarthritis of both knees Pain stable and use OTC PRN. Associated Problem(s): Primary insomnia Sleeping well with ambien and continue. Associated Problem(s): EDWIN (obstructive sleep apnea) Sleeping well with CPAP and continue nightly. The patient is benefiting from PAP therapy. Associated Problem(s): Hiatal hernia with gastroesophageal reflux disease without esophagitis GERD controlled but still problems swallowing. Scheduled for surgery 07/24. Associated Problem(s): Essential hypertension, benign (CMS/HCC) BP improved but still elevated and increase losartan. Continue to monitor PRN. Associated Problem(s): COPD (chronic obstructive pulmonary disease) ([facility]) Symptoms stable and continue spiriva. Use albuterol PRN. Associated Problem(s): Class 2 severe obesity due to excess calories with serious comorbidity and body mass index (BMI) of 38.0 to 38.9 in adult ([facility]) Weight loss indicated. Images from the original note were not included. Subjective Patient ID: Shey Boss is a 73 y.o. female who presents for Follow-up (3 m). Follow up HTN, COPD, insomnia, OA knees, GERD, and EDWIN. Checking BP PRN and improved but still elevated. BP typically 140s systolic and 148/80 today. Taking medication daily and tolerating without side effects. COPD stable. Taking spiriva daily and using albuterol PRN. Mild SOB and fatigue with exertion. Occasional cough but no sputum. Mild SOB to go up or down stairs. Sleeping well with ambien. Able to fall asleep and stay asleep. Wakes up rested in am. OA knee stable. Frequent popping, clicking, and grinding. At times unsteady and give out. Using OTC PRN. EDWIN controlled with CPAP. Using machine nightly for entire time asleep, typically 6-8 hours. Sleeping well and not waking up as much during night. Rested in am and not as tired during day. Review of Systems Respiratory: Negative for cough, [...] Essential hypertension, benign (CMS/HCC) - Primary BP improved but still elevated and increase losartan. Continue to monitor PRN. Relevant Medications losartan (Cozaar) 50 MG tablet Primary osteoarthritis of both knees Pain stable and use OTC PRN. COPD (chronic obstructive pulmonary disease) ([facility]/HCC) Symptoms stable and continue spiriva. Use albuterol PRN. Relevant Medications predniSONE (Deltasone) 50 MG tablet Hiatal hernia with gastroesophageal reflux disease without esophagitis GERD controlled but still problems swallowing. Scheduled for surgery 07/24. EDWIN (obstructive sleep apnea) Sleeping well with CPAP and continue nightly. The patient is benefiting from PAP therapy. Primary insomnia Sleeping well with ambien and continue. Class 2 severe obesity due to excess calories with serious comorbidity and body mass index (BMI) of 38.0 to 38.9 in adult ([facility]/HCC) Weight loss indicated. documented in this encounter [facility] 04-29-2024 Note HNO ID: [id number] Author: XAVIER BOYD MD Service: ? Author [...] blinded, parallel group trial IRB NO.: #[id number] PLAN CONSULTANT: Pa Prakash MD COORDINATOR/Research Nurse/Radiology Aide: Abdelrahman He MD Phone/email: [phone], [email or web address] Consenting was performed in person prior to [...] CRITERIA Yes No 1. The patient lacks Russian language fluency or cannot understand the consent form/study procedures [] [x] 2. The patient is [] [x] 3. The patient has a BMI >45 [] [x] 4. The patient has undergone previous hiatal hernia repair [] [x] 5. The patient will undergo paraesophageal hernia repair with a concurrent bariatric procedure to reduce stomach volume [] [x] [facility] 04-29-2024 History of Present illness Narrative Consultation [...] blinded, parallel group trial IRB NO.: #[id number] PLAN CONSULTANT: Pa Prakash MD COORDINATOR/Research Nurse/Radiology Aide: Abdelrahman He MD Phone/email: [phone], [email or web address] [facility] Consenting was performed in person prior to [...] CRITERIA Yes No 1. The patient lacks Russian language fluency or cannot understand the consent form/study procedures [] [x] 2. The patient is [] [x] 3. The patient has a BMI >45 [] [x] 4. The patient has undergone previous hiatal hernia repair [] [x] 5. The patient will undergo paraesophageal hernia repair with a concurrent bariatric procedure to reduce stomach volume [] [x] [facility] Abdominal Core Health - HISTORY AND PHYSICAL [...] reviewed and uploaded. Large Type III [facility]. ASSESSMENT/PLAN: chani Boss is a 73 year [...] MD General Surgery documented in this encounter [facility] 04-29-2024 Note HNO ID: [id number] Author: YAN MOSER, ? Service: ? Author Type: Physician Type: Progress Notes Filed: 04/29/2024 12:10 Note Text: [facility] for Abdominal Core Health - [...] Consents obtained Yan Moser MD General Surgery [facility] 04-29-2024 Nurse Note What is the reason for your visit today? Consult Who is your referring physician? Katie Hairston Are you having poor oral intake? YES Have you had unintentional weight loss of 15 lbs/7 Kg in the last 3-6 months? NO Bowels: soft, more frequent Wound: none Temperature: No Drains: No [facility] 04-29-2024 Nurse Note What is the reason for your visit today? Consult Who is your referring physician? Katie Hairston Are you having poor oral intake? YES Have you had unintentional weight loss of 15 lbs/7 Kg in the last 3-6 months? NO Bowels: soft, more frequent Wound: none Temperature: No Drains: No documented in this encounter [facility] 04-22-2024 Telephone encounter Note Spoke with PT she state no prior surgeries [facility] 04-22-2024 Miscellaneous Notes Spoke with PT she state no prior surgeries documented in this encounter [facility] 04-11-2024 History of Present illness Narrative Images [...] No history of alcohol/substance abuse. Reformed smoker. [place] language Russian. Completed high school education as well as some college. Described self as a C student. 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 Motor/Speed of Processing: Left-handed. Grid Inspector strength 31st %ile with left-hand, 18th %ile [...] Learning of a word list 58th %ile (7-4-83-10-12), delayed recall 50th %ile. Recognition discriminability 69th [...] Please contact me with any questions at [phone]. documented in this encounter [facility] 03-27-2024 Note Endoscopic Procedure Report - [...] 1 tab, Oral, Daily Flonase 0.05 mg/inh [place]: 2 spray(s), Nasal, Daily, Refill(s) 0, Dry [...] a day (at bedtime) Flonase 0.05 mg/inh [place] 2 spray(s), Nasal, Daily losartan 25 mg [...] All Problems HTN (hypertension) / SNOMED CT 4948697089 / Confirmed Chronic obstructive pulmonary disease / SNOMED CT 01992756 / Confirmed Insomnia / SNOMED CT 629189834 / Confirmed Seasonal allergic rhinitis / SNOMED CT 800259071 / Confirmed Dyslipidemia / SNOMED CT 3309760369 / Confirmed BMI 39.0-39.9,adult / SNOMED CT 719787779 / Confirmed Morbid obesity / SNOMED CT 584776334 / Confirmed GERD (gastroesophageal reflux disease) / SNOMED CT 567306319 / Confirmed Hiatal hernia / SNOMED CT 708876028 / Confirmed EDWIN (obstructive sleep apnea) / SNOMED CT 998038449 / Confirmed Lower extremity edema / SNOMED CT 250518641 / Confirmed TIA (transient ischemic attack) / SNOMED CT 573342811 / Confirmed Screening for malignant neoplasm of colon / SNOMED CT 584171719 / Confirmed Dysphagia / SNOMED CT 62569329 / Confirmed Histories Past Medical History: Resolved Hernia (774935848): Resolved. Sleep apnea (731243809): Resolved. Family History: Father Alcoholism Primary malignant neoplasm of lung COPD Mother Cardiac arrest Alzheimer's disease Procedure history: Colonoscopy (324870927) on 10/13/2023 at 73 Years. ORIF - Open reduction of fracture of ankle with internal fixation (530551739122489). Meniscal repair (123627951). Tonsillectomy (148623360). Hand tendon repaired (144792508). Social History Social & Psychosocial Habits Alcohol [...] 11:14) Heart Rate Monitored 72 bpm (MAR 20 11:14) SBP H 173 mmHg (MAR 20:14) DBP 72 mmHg (MAR 20:14) Weight 100 kg (MAR 20:14) General: in Nad Abdomen: Soft, NTND Impression and Plan Impression: DYSPHAGIA Plan: -EGD [facility] Comment on above: Result Comment: mary [...] Follow these instructions at home: Medicines Take ldfa-qua-xjmtffd and prescription medicines only as told by [...] or drinks. ?Garlic or onions. ?Spicy foods. ?Broome fruits. ?Tomato-based foods. ?Fatty or fried foods. [...] provider. Document Revised: 01/09/2023 Document Reviewed: 01/09/2023 [employer] Patient Education 2023 [employer]. 03/20/2024 13:07:56 Gastritis, Adult, Bziv-ny-Bije Gastritis, Adult Gastritis is irritation and swelling [...] Follow these instructions at home: Medicines Take ynlp-ssh-rkcfdyk and prescription medicines only as told by [...] provider. Document Revised: 10/30/2021 Document Reviewed: 10/30/2021 [employer] Patient Education 2023 [employer]. 03/20/2024 13:07:48 Hiatal Hernia Hiatal Hernia A [...] reduce GERD symptoms. Medicines. These may include: ?Bblj-odv-bdydmmh antacids. ?Medicines that make your stomach empty [...] may include: ?Fatty foods, like fried foods. ?Broome fruits, like oranges or lemon. ?Other foods [...] Do not drink alcohol. General instructions Take kgzo-lkk-vxlzmaf and prescription medicines only as told by [...] provider. Document Revised: 08/23/2022 Document Reviewed: 08/23/2022 [employer] Patient Education 2023 [employer] 03/20/2024 13:07:46 Endoscopy, Care After Procedure [facility] Endoscopy Care After Procedure Please read the [...] Document Re-Released: 12/18/2006 ExitCare Patient Information 2009 [employer]. Follow Up Care 02/26/2024 09:52:05 With:Yovanny OLIVO, SENAIT Sifuentes, [facility] Address: When: Unknown Comments:Call for any problems. Office will call to schedule follow up appointment [facility] 03-20-2024 Evaluation + Plan note Future Scheduled TestsXR Esophagus 03/20/24 [facility] 03-20-2024 Note Patient Education - Text [...] Document Re-Released: 12/18/2006 ExitCare? Patient Information ?2009 [employer]. Gastroenterology Hiatal Hernia A hiatal hernia occurs [...] symptoms. ? Medicines. These may include: ? Abat-bli-ewupjwj antacids. ? Medicines that make your stomach [...] Avoid putting pressu (more content not included)... [facility] 03-20-2024 Note Endoscopic Procedure Report - [...] otherwise normal examined duodenum Images Procedure images: Rec1_hd_video____[id number]_155. jpg Rec1_hd_video___35_581. jpg Rec1_hd_video___25_745. jpg Rec1_hd_video_2023____15_326. jpg Rec1_hd_video__00_14_566. jpg Rec1_hd_video____01_833. jpg . Post-Procedure Complications: none. Estimated blood [...] surgery referral is indicated, will be ordered [facility] Comment on above: Result Comment: Elec tronically Signed By: Katie Hairston MD\.br\Date and Time Signed: 03/20/24 12:58 EDT Other Comment: Samreen dueñas Attachment - attachment storage system not supported [id number] Can be viewed in source systemMissing Attachment - attachment storage system not supported [id number] Can be viewed in source systemMissing Attachment - attachment storage system not supported [id number] Can be viewed in source systemMissing Attachment - attachment storage system not supported [id number] Can be viewed in source systemMissing Attachment - attachment storage system not supported [id number] Can be viewed in source systemMissing Attachment - attachment storage system not supported [id number] Can be viewed in source system 03-20-2024 [...] 1 tab, Oral, Daily Flonase 0.05 mg/inh [place]: 2 spray(s), Nasal, Daily, Refill(s) 0, Dry [...] a day (at bedtime) Flonase 0.05 mg/inh [place] 2 spray(s), Nasal, Daily losartan 25 mg [...] All Problems HTN (hypertension) / SNOMED CT 4744171745 / Confirmed Chronic obstructive pulmonary disease / SNOMED CT 82974641 / Confirmed Insomnia / SNOMED CT 271934569 / Confirmed Seasonal allergic rhinitis / SNOMED CT 287092436 / Confirmed Dyslipidemia / SNOMED CT 8731543178 / Confirmed BMI 39.0-39.9,adult / SNOMED CT 354588681 / Confirmed Morbid obesity / SNOMED CT 249326682 / Confirmed GERD (gastroesophageal reflux disease) / SNOMED CT 430081523 / Confirmed Hiatal hernia / SNOMED CT 563634534 / Confirmed EDWIN (obstructive sleep apnea) / SNOMED CT 804945631 / Confirmed Lower extremity edema / SNOMED CT 891107528 / Confirmed TIA (transient ischemic attack) / SNOMED CT 054093230 / Confirmed Screening for malignant neoplasm of colon / SNOMED CT 206894022 / Confirmed Dysphagia / SNOMED CT 28427061 / Confirmed Histories Past Medical History: Resolved Hernia (449578056): Resolved. Sleep apnea (106623518): Resolved. Family History: Father Alcoholism Primary malignant neoplasm of lung COPD Mother Cardiac arrest Alzheimer's disease Procedure history: Colonoscopy (955160234) on 10/13/2023 at 73 Years. ORIF - Open reduction of fracture of ankle with internal fixation (027597641653298). Meniscal repair (029529547). Tonsillectomy (121601115). Hand tendon repaired (379584313). Social History Social & Psychosocial Habits Alcohol [...] Impression and Plan Impression: DYSPHAGIA Plan: -EGD [facility] Comment on above: Result Comment: Elec tronically Signed By: Yovanny OLIVO, Katie Torres\.br\Date and Time Signed: 03/20/24 12:47 EDT 10-16-2023 Note [id number]#1.00TIFF [facility] 10-13-2023 Evaluation + Plan note Extrac clarke from: Title:ANES Post-operative Note - General Author: Shaji Bethea Jr., DO Date:10/13/23 Plan Transfer/Discharge: Transfer/Discharge Discharge when meets criteria ( From PACU to Ambulatory Surgery Unit, and To home ). Extracted from: Title:ANES Pre-operative Note - Endo Author:Shaji Mendoza Jr., DO Date:10/13/23 Plan [place] [employer] Anesthesiologists (ASA) physical status classification: Class III. Anesthetic Preoperative Plan: Anesthesia General, and -TIVA. [facility]04-05-2024 Hospital Discharge instructions Patient Education 10/13/2023 09:31:42 Colonoscopy, Care After Surgery Millie (CUSTOM) Colonoscopy Care After Surgery Please read the instructions outlined below and refer to this sheet in the next few weeks. These discharge instructions provide you with general information on caring for [facility] Your doctor may also give [...] With:Pa WEBB Address: [address], [address] [place] [phone] Business (1) When: only if needed [facility]04-05-2024 NotePatient: SHEY BOSS Age: 73 years Sex: Female : 1950 Associated Diagnoses: None Author: Pa WEBB MD Subjective no changes to & [facility]Result Comment: Electronically Signed By: Pa WEBB MD\.br\Date and Time Signed: 10/13/23 09:45 [id number] NoteChief Complaint consultation for colonoscopy [facility] Staff 72 year old female presents on [...] a day (at bedtime) Flonase 0.05 mg/inh [place], 2 spray(s), Nasal, Daily losartan 25 mg [...] Alcoholism: Father. Alzheimer's di (more content not included)...[facility]Result Comment: Electronically Signed By: TRACEY OLIVO, Pa Lynn\Date and Time Signed: 09/12/23 10:16 [id number] History of Present illness Narrative* Latrell Jack [...] to General Surgery [id number] NoteEXAMINATION: XR CHEST 1 V HISTORY: SHORTNESS [...] Electronically authenticated by: MEHNAZ SANTIAGO Date: 2021-11-02 16:39[place]03-04-2022 NotePROCEDURE: XR ANKLE RT MIN 3 VIEWS [...] Electronically authenticated by: WILLARD ANAND Date: 2021-09-10 09:02[place]03-04-2022 NotePROCEDURE: XR ANKLE RT 2V COMPARISON: 03/02/2020. HISTORY: Pain FINDINGS: 35 seconds of fluoroscopy. 5 fluoroscopic images Interval removal of internal fixation hardware. Components of 2 fractured screws across the tibiofibular syndesmosis remain on image #5 IMPRESSION: Removal of lateral fibular plate and screws Electronically authenticated by: WILLARD ANAND Date: 2021-09-10 08:30[place] + [place] note Future Appointments Appointment Date:03/20/2024 12:15:00 PM Scheduled Provider: Location:[facility] Appointment Type:Surgery FT [facility] Evaluation note* Diagnosis Essential [...] 40.0-44.9, adult (Z68.41) documented in this encounter [facility] HealthcareEvaluation note* Diagnosis Memory loss- Primary Word finding difficulty EDWIN on CPAP Other insomnia Other chronic pain Generalized anxiety disorder (CMS/HCC) Generalized anxiety disorder Severe episode of recurrent major depressive disorder, 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) documented in this encounter [facility] HealthcareEvaluation note* Diagnosis Paraesophageal hernia- Primary Diaphragmatic hernia without mention of obstruction or gangrene [facility] Diagnosis Preoperative examination- Primary Preoperative examination, unspecified Paraesophageal hernia Diaphragmatic hernia without mention of obstruction or gangrene Abnormal results of liver function studies Nonspecific abnormal results of liver function study Abnormal coagulation profile [facility]* Diagnosis Essential hypertension, benign (CMS/HCC)- Primary [...] Body mass index [BMI] 40.0-44.9, adult (Z68.41) Essential hypertension, benign (CMS/HCC)- Primary Essential hypertension, benign Dysphagia, unspecified type 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CMS/HCC) Senile dementia, uncomplicated Chronic obstructive pulmonary disease, unspecified COPD type (CMS/HCC) Hiatal hernia with gastroesophageal reflux disease without esophagitis Primary osteoarthritis of both knees Primary insomnia Persistent disorder of initiating or maintaining sleep EDWIN (obstructive sleep apnea) Obstructive sleep apnea (adult) (pediatric) Essential hypertension, benign (CMS/HCC)- Primary Essential hypertension, benign Chronic obstructive pulmonary disease, unspecified COPD type (CMS/HCC) Hiatal hernia with gastroesophageal reflux disease without esophagitis EDWIN (obstructive sleep apnea) Obstructive sleep apnea (adult) (pediatric) Primary osteoarthritis of both knees Primary insomnia Persistent disorder of initiating or maintaining sleep Class 2 severe obesity due to excess calories with serious comorbidity and body mass index (BMI) of 38.0 to 38.9 in adult (CMS/HCC) documented in this encounter [facility] Narrative No data available for this section [facility] No data available for this section [facility] Progress note No data available for this section [facility] (narrative)* Consultation (Routine) - Pending Review Specialty Diagnoses / Procedures Referred By Contioana junior Referred To Contact General Surgery Diagnoses Screening for colon cancer Procedures DC OFFICE/OUTPATIENT [facility] 60 MINUTES Latrell Jack MD [address] [place] [address] Pa Webb MD [address] [place] [address] Referral ID Status Reason Start Date Expiration Date Visits Requested Visits Authorized [id number] Pending Review Specialty Services Required 08/11/2023 02/07/2024 [...] Advanced Directives Records Found Hospital Course Note [facility] SURGERY Clinical Discharge Summary PERSON INFORMATION Name SHEY BOSS Age 68 Years 52 Sex FEMALE Language Russian PCP LATRELL JACK Marital Status Single Med Service Ambulatory Surgery Acct# Arrival 02/04/19 11:44:00 Visit Reason SURGERY - RELEASE TRIGGER FINGER LEFT RING FINGER AND E/O CYST LEFT RING FINGER Acuity LOS 012 05:38 Address: [address] [place] [address] Comment: PROVIDER INFORMATION VITALS INFORMATION Vital Sign [...] Referral Specialty Diagnoses / Procedures Referred By Joan junior Referred To Contact Diagnoses Preoperative examination Paraesophageal hernia Procedures REFER TO [facility] - PREOPERATIVE OPTIMIZATION OFFICE/OUTPATIENT NEW HIGH MDM 60 MINUTES Katarzyna Carter APRN.RELOCATION DIRECTOR [address] [place] [address] Referral ID Status Reason Start Date Expiration Date Visits Requested Visits Authorized [id number] Authorized PCP Requested Referral 4 05/04/2025 1 1 Specialty Diagnoses / Procedures Referred By Joan junior [facility] Diagnoses Preoperative examination Paraesophageal hernia Procedures ECG COMPLETE ECG ROUTINE ECG W/LEAST 12 LDS W/I&R Katarzyna Carter, LISSETTE.RELOCATION DIRECTOR [address] [place] [address] [facility] [address] [place] [address] Referral ID Status Reason Start Date Expiration Date Visits Requested Visits Authorized [id number] New Request Auto-Generat ed Referral 4 05/04/2025 1 1 Additional Source Comments INFORMATION SOURCE (unrecogn ized section and content) DATE CREATED AUTHOR 02/17/2019 [facility] DATE CREATED AUTHOR AUTHOR'S ORGANIZ ATION 08/03/2022 [facility] DATE CREATED AUTHOR AUTHOR'S ORGANIZ ATION 03/28/2024 [facility] DATE CREATED AUTHOR AUTHOR'S ORGANIZ ATION 03/30/2024 [facility] DATE CREATED AUTHOR AUTHOR'S ORGANIZ ATION 04/04/2024 [facility] DATE CREATED AUTHOR AUTHOR'S ORGANIZ ATION 04/30/2024 [facility] DATE CREATED AUTHOR AUTHOR'S ORGANIZ ATION 05/10/2024 [place] DATE CREATED AUTHOR AUTHOR'S ORGANIZ ATION 05/17/2024 [facility] Care Teams (unrecognized sec tion and content) Kitchen Assistant Relationship Specialty Start Date End Date Latrell Jack MD [address] [place] [phone] PCP - General Family Medicine 08/05/23 Kitchen Assistant Relationship Specialty Start Date End Date Latrell Jack MD [address] [place] [phone] PCP - General Family Medicine 08/05/23 Kitchen Assistant Relationship Specialty Start Date End Date Latrell Jack MD [address] [place] [phone] PCP - General Family Medicine 08/05/23 Kitchen Assistant Relationship Specialty Start Date End Date Katie Hairston MD [address] [place] [address] [address] Internal Medicine 04/02/24 Kitchen Assistant Relationship Specialty Start Date End Date Katie Hairston MD [address] [place] [address] [address] Internal Medicine 04/02/24 Kitchen Assistant Relationship Specialty Start Date End Date Katie Hairston MD [address] [facility] [address] [address] Internal Medicine 04/02/24 Kitchen Assistant Relationship Specialty Start Date End Date Latrell Jack MD [address] [place] [address] PCP - General Family Medicine 08/05/23 Reason for Visit (unrecogniz ed section and content) Reason Comments Follow-up 6 m Reason Comments New Patient Evaluation Hiatal Hernia Reason Comments 15.25 Cure Lap Paraesophageal H ernia Repair/EGD 4 hours los 1 Reason Comments Follow-up 3 m Source Comments (unrecognize d section and content) In the event this informatio n is protected by the Federal Confidentiality of Alcohol and Drug Abuse Patient Records regulations: The Federal rules restrict any use of the information to criminally investigate or prosecute any alcohol or drug abuse patient.[facility] the event this information is protected by the Federal Confidentiality of Alcohol and Drug Abuse Patient Records regulations: The Federal rules restrict any use of the information to criminally investigate or prosecute any alcohol or drug abuse patient.[facility] the event this information is protected by the Federal Confidentiality of Alcohol and Drug Abuse Patient Records regulations: The Federal rules restrict any use of the information to criminally investigate or prosecute any alcohol or drug abuse patient.[facility] FOR RECORDS PERTAINING TO PATIENTS WHO ARE [...] BE BASED ON THE PRIMARY CLINICAL RECORDS. [facility] [employer] [facility]. provides no warranty or guarantee of the accuracy or completeness of information in this document.
--- NOTE | 2024-05-29 07:55 | P.CN_ITS ---
Consult Note: HPI Data of Consult Patient: known to practice within the last 3 years Consult date: 04/15/24 Requesting Physician: Amalia Woodson NP Primary Care Provider: Latrell Mckeon MD Consult Narrative Reason for consult: low back pain Narrative: 73yof who presents for evaluation. chronic low back and right foot pain, recent lumbar MRI consistent with lumbar stenosis with NC and lumbar spondylosis, see results below. Pain unresponsive to tylenol, cannot take NSAIDs with hiatal hernia. Mild relief from zonegran 100mg HS without side effects. Has failed to benefit from HEP greater than 6 weeks. Pain today in low back and left SIJ 7/10, increasing to 9/10 with standing walking and long periods of sitting, improved with changing positions. Eduin numbness tingling weakness and loss of bowel/bladder. denies recent falls. Recently underwent bilateral L4-5 L5-S1 MBB #1 with >80% improvement immediately following and 10 hrs after the procedure, significant improvement in ability to stand walk and twist. Preop pain up to 9/10 post op 0/10. cc:: CC: Amalia Woodson NP Review of Systems ROS Status of ROS 10 or more systems reviewed and unremark able except as noted in history and below Musculoskeletal Reports: back pain PFSH PFSH Medical History Osteoarthritis ?M19.90 - Unspecified osteoarthritis, unspecified site (ICD-10) Anxiety ?F41.9 - Anxiety disorder, unspecified (ICD-10) Hiatal hernia ?K44.9 - Diaphragmatic hernia without obstruction or gangrene (ICD-10) Sleep apnea ?G47.30 - Sleep apnea, unspecified (ICD-10) COPD (chronic obstructive pulmonary disease) ?J44.9 - Chronic obstructive pulmonary disease, unspecified (ICD-10) High cholesterol ?E78.00 - Pure hypercholesterolemia, unspecified (ICD-10) HTN (hypertension) ?I10 - Essential (primary) hypertension (ICD-10) Surgical History History of ankle surgery ?Z98.890 - Other specified postprocedural states (ICD-10) History of hand surgery ?Z98.890 - Other specified postprocedural states (ICD-10) History of knee replacement ?Z96.659 - Presence of unspecified artificial knee joint (ICD-10) Meds Home Medications and Allergies Home Medications ?Medication ?Instructions ?Recorded ?Confirmed ?Type aspirin 81 mg tablet,delayed 81 mg PO DAILY 04/16/24 05/27/24 History release (Adult Aspirin Regimen) atorvastatin 40 mg tablet 40 mg PO DAILY 04/16/24 05/27/24 History calcium carbonate (Calcium 500) 500 mg PO BID 04/16/24 05/27/24 History donepezil 5 mg tablet (Aricept) 5 mg PO DAILY 04/16/24 05/27/24 History famotidine 40 mg tablet 40 mg PO DAILY 04/16/24 05/27/24 History fluticasone propionate 50 2 spray intranasal DAILY PRN 04/16/24 05/27/24 History mcg/actuation nasal allergy symptoms spray,suspension (24 Hour Allergy Relief) losartan 50 mg tablet 50 mg PO DAILY 04/16/24 05/27/24 History pantoprazole 40 mg tablet,delayed 40 mg PO BID 04/16/24 05/27/24 History release tiotropium bromide 18 mcg capsule 1 cap inhalation DAILY 04/16/24 05/27/24 History with inhalation device (Spiriva with HandiHaler) vitamin E 268 mg (400 unit) capsule 268 mg PO DAILY 04/16/24 05/27/24 History zolpidem 12.5 mg tablet,extended 12.5 mg PO DAILY 04/16/24 05/27/24 History release,multiphase Allergies Allergy/AdvReac Type Severity Reaction Status Date / Time No Known Drug Allergies Allergy Verified 05/27/24 08:31 Exam Constitutional Documenting provider has reviewed patient's vital signs: yes Common normals: no apparent distress, oriented x3, healthy appearing, alert and well nourished General appearance: cooperative [facility] Common normals: normocephalic, hearing grossly normal bilaterally and moist oral mucous membranes Head and scalp: normocephalic Eye Common normals: PERRL Pupil: PERRL Neck & C-Spine Common normals: full ROM General: normal visual inspection Chest Common normals: inspection of chest normal Respiratory Common normals: normal respiratory effort, no retractions and no use of acc essory muscles Back & Pelvis Lumbar spine/lower back: pain with ROM, lumbar spinal tenderness, paraspinal muscle tenderness and straight leg raise negative bilaterally; no paraspinal muscle spasm Sacroiliac joints: SI joint(s) abnormal Other: positive facet loading increased pain over L4-S1 facets strength 5/5 in BLE sensation intact BLE left SIJ positive mauro(patricks), gaenslens, thigh thrust, compression test Neuro Common normals: oriented x3, CN's II-XII intact bilaterally, moves all extremities, no focal motor deficits, no sensory deficits noted and deep tendon reflexes 2+ bilaterally Sensorium/orientation: alert Motor exam: strength 5/5 throughout and no movement abnormalities noted Psych Common normals: mental status grossly normal, thought process normal, cooperative, affect normal, speech normal and activity/motor behavior normal Speech: normal speech Thought process: normal thought process Assessment and Plan Assessment and Plan (1) Lumbar spondylosis: (2) Myalgia: Plan bilateral L4-5 L5-S1 facet medial branch block x2 working towards RFA under fluoroscopy, risks vs benefits reviewed continue HEP as tolerated continue baclofen 5-10mg BID PRN pain/spasms continue zonegran 100mg HS f/u after each injection
== END 2024-05-29 07:34 | disposition home or self-care (01) ==
LOC: PM 07:33
PROVIDERS: PCP Family Medicine; Visit Provider Nurse Practitioner
DX: M47.816 Spondylosis without myelopathy or radiculopathy, lumbar region (principal); M79.18 Myalgia, other site
CPT/HCPCS: G0463

== ENCOUNTER 2024-06-10 07:05 | Day surgery (SDC) | payer MEDICARE, OTHER, SELFPAY ==
--- OUTSIDE RECORDS SUMMARY | 2024-06-10 07:09 | XMS_ITS | CCD ---
Author Organization [facility] CliniSyva Care Team Providers Care Dictating Machine Transcriber Name Role Phone FREDY, DR CHAPARRO Attending [...] Unavailable Guero OLIVO, Latrell Primary Care Provider [phone] GUERO, LATRELL Primary Care Physician Pa WEBB Referring Unavailable NILL, Pa Vivas Attending Unavailable Pa WEBB Admitting Unavailable Katie Hairston Referring Unavaila ble Sarmini, Leos Talal Attending Unavaila ble Ameyamini, Leos Talal Admitting Unavaila ble Sarmini, Leos Talal Referring Unavaila ble Sarmini, Leos Talal Attending Unavaila ble Sarmini, Leos Talal Admitting Unavaila ble Sarmini, Leos Talal Attending Unavaila ble Pa WEBB Attending Unavailable LATRELL JACK Referring Unavailable Yovanny OLIVO, Leosbenigno Torres Unavailable [phone] XAVIER BOYD Attending Unava ilable AMEYAMINTony, LEOS TALAL Referring Unavaila ble Saundra OLIVO, Talat Benedict Attending Unavailable Saundra OLIVO, Talat Benedict Attending Unavailable Saundra OLIVO, Talat Benedict Attending Unavailable SANDRA ARCOS Attending Unavailable GUERO, LATRELL Attending Unavailable MAO MORROW Attending Unavailable DIOMEDES MATUTE Referring Unavailable DIOMEDES MATUTE Attending Unavailable LATRELL JACK Referring Unavailable LATRELL JACK Attending Unavailable LATRELL JACK Attending Unavailable Allergies Allergy Classification Reported Allergen(s) Allergy Type Date of Onset Reaction(s) Facility (1 source) Amino Acids Drug Allergy [facility] Repository Medications Current Medications Medication Drug Class(es) Dates Sig (Normalized) Sig (Original) aspirin 81 mg oral tablet (13 sources) Platelet Aggregation Inhibitor, Nonsteroidal Anti-inflammatory Drug Start: 03-05-2021 aspirin 81 mg cap Take 81 mg by mouth. 03/05/2021 Active Start: 03-05-2021 take 1 tablet by jennifer th once daily aspirin 81 mg Oral EC Tab 81 mg = 1 tab(s), Oral, Daily, Refills(s) 0, Prophylaxis Start Date: 03/05/21 Status: Ordered atorvastatin 40 mg oral tablet (13 sources) HMG-CoA Reductase Inhibitor Start: 03-12-2021 take [...] Ordered calcium carbonate 1500 mg oral tablet (10 sources) take 1 tablet by mouth in the morning calcium carbonate 1500 (600 Ca) MG tablet Take 1 tablet by mouth in the morning and 1 tablet in the evening. Take with meals. Active cholecalciferol 0.025 mg oral capsule (10 sources) Vitamin D take 1 capsule by mouth once daily cholecalciferol (Vitamin D-3) 25 MCG (1000 UT) capsule Take 1 capsule by mouth 1 (one) time each day at the same time Active Cholecalciferol, Vitamin D3, 25 mcg (1,000 unit) cap Take 1 capsule by mouth. Active donepezil hydrochloride 5 mg oral tablet (9 sources) Start: 02-23-2024 take 1 tablet by mouth at bedtime donepezil (Aricept) 5 MG tablet Indications: 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CMS/HCC) TAKE 1 TABLET BY MOUTH AT BEDTIME 90 tablet 1 03/04/2024 Active famotidine 40 mg oral tablet (13 sources) Histamine-2 Receptor Antagonist Start: 05-15-2024 famotidine [...] propionate 0.05 mg/actuat metered dose nasal spray (13 sources) Corticosteroid Start: 03-26-2024 take 2 spray(s) nasal route once daily fluticasone (Flonase) 50 MCG/ACT nasal spray Indications: Seasonal allergic rhinitis due to pollen USE 2 SPRAYS IN EACH NOSTRIL DAILY 48 mL 5 03/26/2024 Active Start: 09-06-2023 fluticasone (F LONASE) 50 mcg/actuation nasal spray 2 Sprays once daily. 09/06/2023 Active Start: 02-28-2024 Flonase 0.05 m g/inh Chester 2 spray(s), Nasal, Daily, Refill(s) 0, Dry nasal passages Start Date: 09/06/23 Status: Ordered Start: 06-21-2023 take 2 spray(s) nasa l route in the morning fluticasone (Flonase) 50 MCG/ACT nasal spray Administer 2 sprays into each nostril in the morning. 0 06/21/2023 Active losartan potassium 50 mg oral tablet (15 sources) Angiotensin 2 Receptor Martin Start: 05-15-2024 [...] time 0 Active Multiple Vitamin (multivitamin) capsule (3 sources) take 1 capsule by mouth once daily Multiple Vitamin (multivitamin) capsule Take 1 capsule by mouth Daily Active pantoprazole 40 mg delayed release oral tablet (13 sources) Proton Pump Inhibitor Start: 2020 take [...] 05/21/2024 Active tiotropium 0.018 mg inhalation powder (9 sources) Anticholinergic Start: 2023 End: 2024 take [...] Start Date: 09/06/23 Status: Ordered Vitamin E (12 sources) Start: 02-26-2024 vitamin E Oral , Daily, Refills(s) 0, Prophylaxis Start Date: 02/26/24 Status: Ordered Start: 02-26-2024 vitamin E Oral , Refills(s) 0 Start Date: 02/26/24 Status: Ordered take 1 capsule by [facility] once daily alpha tocopherol (Vitamin E) 400 units capsule Take 1 capsule by mouth 1 (one) time each day at the same time Active Vitamin E, dl, a cetate, (VITAMIN E) 400 unit capsule Take 1 capsule by mouth. Active zolpidem tartrate 12.5 mg extended release oral tablet (13 sources) gamma-Aminobutyric Acid-ergic Agonist Start: 03-03-2021 zolpidem CR (Ambien CR) 12.5 MG ER tablet Indications: Primary insomnia TAKE 1 TABLET AT BEDTIME 90 tablet 2 11/17/2023 Active Completed/Discontinued Medications Medication Drug Class(es) Dates Sig (Normalized) Sig (Original) albuterol 0.83 mg/ml inhalation solution (7 sources) beta2-Adrenergic Agonist Start: 02-23-2024 albuterol 0.083% [...] Problem Classification Problem Date Documented Date Episodic/Chronic Acute cerebrovascular disease (5 sources) Cerebrovascular accident; Translations: [Cerebral infarction, unspecified] Onset: 4 03-03-2024 Chronic Anxiety disorders (2 sources) Generalized anxiety disorder; Translations: [Generalized anxiety disorder] 04-12-2024 Chronic Chronic obstructive pulmonary disease and bronchiectasis (17 sources) Chronic obstructive pulmonary disease, unspecified; Translations: [Chronic obstructive pulmonary disease with (acute) exacerbation] Onset: 2 08-11-2023 Chronic Delirium, dementia, and amnestic and other cognitive disorders (5 sources) Senile dementia; Translations: [Unspecified dementia without behavioral disturbance] Onset: 4 02-09-2024 Chronic Disorders of lipid metabolism (14 sources) Hyperlipidemia, unspecified; Translations: [Dyslipidemia] Onset: 2 08-11-2023 Chronic Esophageal disorders (4 sources) Gastroesophageal reflux disease; Translations: [Gastroesophageal reflux disease without esophagitis] Onset: 4 09-06-2023 Chronic Essential hypertension (16 sources) Essential (primary) hypertension; Translations: [Benign essential hypertension] Onset: 2 08-11-2023 Chronic Miscellaneous mental health disorders (12 sources) Psychophysiologic insomnia; Translations: [Primary insomnia] Onset: 2 08-11-2023 Chronic Mood disorders (2 sources) 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 features; Translations: [Major depressive disorder, recurrent severe without psychotic features] 04-12-2024 Chronic Osteoarthritis (12 sources) Primary gonarthrosis, bilateral; Translations: [Bilateral primary osteoarthritis of knee] Onset: 4 08-11-2023 Chronic Other aftercare (4 sources) Patient encounter status; Translations: [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 operator (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 therapy] Onset: 4 08-11-2023 Episodic [...] Chronic Other nutritional; endocrine; and metabolic disorders (12 sources) Morbid obesity; Translations: [Morbid (severe) obesity [...] Chronic Other nutritional; endocrine; and metabolic disorders (5 sources) Severe obesity; Translations: [Class 2 severe obesity due to excess calories with serious comorbidity and body mass index (BMI) of 38.0 to 38.9 in adult ([facility])] Onset: 4 05-15-2024 Chronic Other screening for suspected conditions (not mental disorders or infectious disease) (10 sources) Encounter for screening mammogram for malignant neoplasm of breast; Translations: [Patient encounter status] Onset: 2 Episodic Other upper respiratory disease (9 sources) Allergic rhinitis due to pollen; Translations: [Allergic rhinitis due to pollen] Onset: 4 08-11-2023 Chronic Other upper respiratory disease (3 sources) Seasonal allergic rhinitis 09-06-2023 Chronic Residual codes; unclassified (1 source) Obstructive sleep apnea (adult) (pediatric); Translations: [OBSTRUCTIVE SLEEP APNEA] Onset: 2 Chronic Residual codes; unclassified (14 sources) Obstructive sleep apnea syndrome; Translations: [Obstructive [...] DEPEND] Onset: 2 Episodic Transient cerebral ischemia (11 sources) Transient cerebral ischemia; Translations: [Transient cerebral [...] Date Documented Da te Episodic/Chronic Abdominal hernia (20 sources) Diaphragmatic hernia without obstruction or gangrene; Translations: [Gastroesophageal reflux disease with hiatal hernia] Onset: 09-16-2021 08-11-2023 Episodic Complication of device; implant or graft (2 sources) Pain due to internal orthopedic prosthetic devices, implants and grafts, initial encounter; Translations: [Other specified complication of internal orthopedic prosthetic devices, implants and grafts, initial encounter] Onset: 09-16-2021 Episodic Diabetes mellitus without complication (5 sources) Prediabetes; Translations: [Prediabetes] Onset: 08-13-2023 08-13-2023 [...] 02-23-2022 Episodic Other aftercare (1 source) 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 operator (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 therapy; Translations: [OTH SENIOR CARE CURRENT DRUG THERAPY] Onset: 02-23-2022 Episodic Other aftercare (1 source) halfway (current) use of aspirin; Translations: [SENIOR CARE CURRENT USE OF ASPIRIN] Onset: 02-23-2022 Episodic Other aftercare (5 sources) Long-term current use of drug therapy; Translations: [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 operator (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 therapy] Onset: 08-11-2023 4 Episodic Other bone disease and musculoskeletal deformities (1 source) Other specified disorders of bone density and structure, other site; Translations: [OTH D/O BONE DEN STRUCT OTH SITE] Onset: 09-16-2021 Episodic Other bone disease and musculoskeletal deformities (8 sources) Osteopenia; Translations: [Other specified disorders of bone density and structure, other site] Onset: 08-11-2023 08-11-2023 Episodic Other circulatory disease (1 source) Personal history of transient ischemic attack (TIA), and cerebral infarction without residual deficits; Translations: [PERS HX TIA AND CI NO RESID DEFICIT] Onset: 09-16-2021 Episodic Other gastrointestinal disorders (8 sources) Dysphagia; Translations: [Dysphagia, unspecified] Onset: 02-09-2024 [...] ANKLE] Onset: 09-16-2021 Episodic Residual codes; unclassified (5 sources) Hypersomnia; Translations: [Hypersomnia, unspecified] Onset: 03-03-2024 Resolved: 05-15-2024 03-03-2024 Chronic Residual codes; unclassified (1 source) Family history of malignant neoplasm of trachea, bronchus and lung; Translations: [FAM HX MALIG NEOPLSM TRACH BRON LNG] Onset: 11-12-2021 Episodic Residual codes; unclassified (1 source) Asymptomatic menopausal state; Translations: [ASYMPTOMATIC MENOPAUSAL STATE] Onset: 09-16-2021 Episodic Residual codes; unclassified (11 sources) Edema of lower extremity; Translations: [Localized edema] Onset: 08-11-2023 08-11-2023 Episodic Spondylosis; intervertebral disc disorders; other back problems (1 source) Lumbago with sciatica, left side; Translations: [LUMBAGO WITH SCIATICA LEFT SIDE] Onset: 09-16-2021 Episodic Unclassified (1 source) COUGH, UNSPECIFIED; Translations: [COUGH, UNSPECIFIED] Onset: 02-22-2022 Results Test Name Value Interpretation Reference Range Facility Rufina 04-29-2024 CNOV Office Visit (ARNOLDO ) SHEY BOSS ([id number]) 1950 F Date Time Provider Department 04/29/24 [...] No Yan Moser 04/29/2024 12:10 PM Signed [facility] Abdominal [facility] - HISTORY AND PHYSICAL SUBJECTIVE: [...] Consents obtained [facility] 04/29/2024 12:10 PM Signed Consultation requested [...] and discussed (more content not included)... Normal [facility] CNPNon [facility]20[facility] SHE[facility] ([id number]) 1950 F Date Time Provider Department 04/22/24 ASHLIE CALDERON During your visit today, we recorded the following information about you: Ashlie Calderon 04/22/2024 5:39 PM Signed Spoke with PT she state no prior surgeries Allergies As of Date: 04/22/2024 (Not on File) Date Reviewed: Never Reviewed Problem List As Of Date: 04/22/2024 (None) Encounter Status:Closed by ASHLIE CALDERON on 04/22/24 Normal [facility] Surgical Pathology Reporton 03-26-2024 Surgical Pathology Report [facility] [address] [place] [id number]- Surgical Pathology Report Collected Date/Time: 03/20/2024 12:52 EDT Pathologist: Pete Evans MD Received Date/Time: 03/21/2024 08:07 EDT Yovanny OLIVO, Katie Hairston MD, Katie Torres Melissa 07 Surgical Pathology Report - 03/26/2024 18:15 [...] is entirely submitted in one cassette. (DC) DC:[facility] Microscopic Description Microscopic examination performed unless gross only specified. The use of one or more reagents in the above tests is regulated as an analyte specific reagent (ASR). The test or tests are ordered following initial H&E microscopic examination. The performance characteristics were determined by the Laboratory of [facility]. They have not been cleared or approved by the US Food and Drug Administration. The FDA has determined that such clearance or approval is not necessary. These tests are used for clinical purposes. They should not be regarded as investigational or for research. Appropriate positive and negative controls are performed and are acceptable. Normal [facility] Comment on above: Performed By: #### [id number] #### [facility] [address] [place] [address] XR Esophaguson 03-26-2024 XR Esophagus Exam Date/Time: [...] mGy = 15.80 DAP = 464.17 Normal [facility] Main OR Intraoperative Recor don 03-22-2024 Main OR Intraoperative Record Main OR Intraoperative Record IntraOp Document Type FT Summary Primary Physician: Katie Hairston MD Finalized Date/Time: 03/22/24 14:46:15 Pt. Name: SHEY BOSS/Sex: 1950 Female Med Rec #: [id number] Physician: Katie Hairston MD Financial #: [id number] Pt. Type: O Room/Bed: / Admit/Disch: 03/20/24 [...] Case Attendee Mariella JOHNSON, Catalina Ivory CST, Анна Hairston MD, Katie Torres Role Performed INDEPENDENT DISTRIBUTOR Scrub - Primary Surgeon - Primary Time In 03/20/24 12:44:00 03/20/24 12:44:00 03/20/24 12:44:00 Time Out 03/20/24 12:56:00 03/20/24 12:56:00 03/20/24 12:56:00 Procedure EGD(.) EGD(.) EGD(.) Comments Dr. Hairston supervising procedure. Last Modified By: Mynor FORBES, Violette Lopez RN, Essence Pinto RN 03/22/24 14:45:45 03/20/24 12:56:36 03/20/24 12:56:36 Entry 4 Case Attendee Essence Lopez RN Role Performed Chief Program Officer - Primary Time In 03/20/24 12:44:00 Time [...] and tissue Entry 1 Skin Integrity Intact, [place], Warm, & Skin Abnormality No Dry Outcomes [...] Extended Positioning (more content not included)... Normal [facility] Discharge Instructionson Discharge Instructions Discharge [...] mg Tab) fluticasone nasal (Flonase 0.05 mg/inh [place]) losartan (losartan 25 mg Tab) multivitamin with [...] Up with Yovanny OLIVO, Katie Torres, GAS, [facility] When: Comments: Call for any problems. [...] Unchanged fluticasone nasal (Flonase 0.05 mg/ inh [place]) 2 Sprays Nasal Inhalation Every day Unchanged [...] get better (more content not included)... Normal [facility] Comment on above: Result Comment: Elec tronically Signed By: Kassy Barker I\.br\Date and Time Signed: 03/20/24 13:08 EDT Inpatient Patient Summaryon 03-20-2024 Inpatient Patient Summary Inpatient Patient Summary [place] [id number] [facility] Clinical Discharge Instructions PERSON INFORMATION Name: [...] (at bedtime). fluticasone nasal (Flonase 0.05 mg/inh [place]) 2 Sprays Nasal Inhalation every day. losartan [...] bedtime) as needed for sleep. Comment: Kary [facility] Main OR PACU I Recordon 03-10 Main OR PACU I Record Main OR PACU I Record PACU Phase I Document Type FT Summary Primary Physician: Katie Hairston MD Finalized Date/Time: 03/20/24 13:37:02 Pt. Name: SHEY BOSS/Sex: 1950 Female Med Rec #: [id number] Physician: Katie Hairston MD Financial #: [id number] Pt. Type: O Room/Bed: / Admit/Disch: 03/20/24 [...] By: Kassy Barker I 03/20/24 13:37 Normal [facility] Main OR Preoperative Recordo n 03-20-2024 Main OR Preoperative Record Main OR Preoperative Record Holding Area Document Type FT Summary Primary Physician: Katie Hairston MD Finalized Date/Time: 03/20/24 11:17:32 Pt. Name: SHEY BOSS/Sex: 1950 Female Med Rec #: [id number] Physician: Katie Hairston MD Financial #: [id number] Pt. Type: O Room/Bed: / Admit/Disch: 03/20/24 [...] By: Essence Lopez RN 03/20/24 11:17 Normal [facility] Outpatient Surgery Discharge Instructionon 03-20-2024 Outpatient Surgery Discharge Instruction Outpatient Surgery Discharge Instruction [place] [id number] Patient Discharge Instructions PERSON INFORMATION Name: SHEY [...] Information: You may receive a survey from [employer] asking you to rate your care experience. Your feedback is important and will help us understand what we do well and how we can improve the quality of care we provide to you, your loved ones and our community. It?s an honor to serve you. Thank you for choosing [facility] HERE ARE THE MEDICATION CHANGES THAT [...] (at bedtime). fluticasone nasal (Flonase 0.05 mg/inh [place]) 2 Sprays Nasal Inhalation every day. losartan [...] sleep. PATIENT EDUCATION INFORMATION Instructions: Medication Leaflets: [facility] Proceduralon 03-20-2024 Procedural Procedural Patient: SHEY BOSS Age: 73 years Sex: Female : 1950 Associated Diagnoses: None Author: Daquan Schuler MD Postoperative Information Postoperative disposition: Postoperative disposition: To PACU. Optimetrix number: Optimetrix number [id number]. Anesthetic utilized: General. Health Status Allergies: Allergic [...] meets criteria ( To home ). Normal [facility] Procedural Procedural Patient: SHEY BOSS Age: 73 years Sex: Female : 1950 Associated Diagnoses: None Author: aGnga OLIVO, Daquan Olea Preoperative Information Anesthesia Preop [...] 1 tab, Oral, Daily Flonase 0.05 mg/inh Chester: 2 spray(s), Nasal, Daily, Refill(s) 0, Dry [...] a day (at bedtime) Flonase 0.05 mg/inh [place] 2 spray(s), Nasal, Daily losartan 25 mg [...] All Problems BMI 39.0-39.9,adult / SNOMED CT 792222280 / Confirmed Chronic obstructive pulmonary disease / SNOMED CT 35651254 / Confirmed Dyslipidemia / SNOMED CT 6125784475 / Confirmed Dysphagia / SNOMED CT 09717294 / Confirmed GERD (gastroesophageal reflux disease) / SNOMED CT 796574933 / Confirmed Hiatal hernia / SNOMED CT 461623393 / Confirmed HTN (hypertension) / SNOMED CT 4248300289 / Confirmed Insomnia / SNOMED CT 492193373 / Confirmed Lower extremity edema / SNOMED CT 504170114 / Confirmed Morbid obesity / SNOMED CT 965747470 / Confirmed EDWIN (obstructive sleep apnea) / SNOMED CT 518224191 / Confirmed Screening for malignant neoplasm of colon / SNOMED CT 361137131 / Confirmed Seasonal allergic rhinitis / SNOMED CT 026497027 / Confirmed TIA (transient ischemic attack) / SNOMED CT 577621371 / Confirmed Resolved: At risk for falls / SNOMED CT 990822217 Problem added when Risk for Falls Careplan was initiated. Resolved due to patient discharge. Resolved: Hernia / SNOMED CT 205979886 Resolved: Potential for deficient knowledge of cerebrovascular accident (CVA) / IMO 98612708 problem added based on Stroke Powerplan ordered. Resolved due to patient discharge. Resolved: Sleep apnea / SNOMED CT 189151795, Active Problems (14) BMI 39.0-39.9,adult Chronic obstructive pulmonary disease Dyslipidemia Dysphagia GERD (gastroesophageal reflux disease) Hiatal hernia HTN (hypertension) Insomnia Lower extremity edema Morbid obesity EDWIN (obstructive sleep apnea) Screening for malignant neoplasm of colon Seasonal allergic rhinitis TIA (transient ischemic (more content not included)... Normal [facility] Ambulatory Visit Summaryon 0 02-26-2024 [...] mg Tab) fluticasone nasal (Flonase 0.05 mg/inh [place]) losartan (losartan 25 mg Tab) multivitamin with [...] Unchanged fluticasone nasal (Flonase 0.05 mg/ inh [place]) 2 Sprays Nasal Inhalation Every day Contact [...] for choosing us for your care. Normal [facility] Gastroenterology Office/Clin ic Noteon 02-26-2024 [...] or gangrene) reports she had esophagram in [place] no egd in the past declined surgery [...] a day (at bedtime) Flonase 0.05 mg/inh Chester, 2 spray(s), Nasal, Daily losartan 25 mg [...] virus vaccine, inactivated 05/03/2022 Recorded SARS-CoV-2 (COVID-19) [id number] 05/03/2022 Recorded influenza virus vaccine, inactivated 04/12/2021 [...] virus vaccine, inactivated 04/16/2015 Recorded Normal [facility] Comment on above: Result Comment: Elec tronically Signed By: Yovanny OLIVO, Katie Torres\.br\Date and Time Signed: 02/26/24 09:38 EDT IntraOperative Documentson 0 10-19-2023 IntraOperative Documents [id number] 0TIFF [facility] Consenton 10-16-2023 Consent [id number] TIFF Normal [facility] Discharge Instructionson Discharge Instructions [id number]#1.00 TIFF [facility] Main OR Intraoperative Recor don 10-16-2023 Main OR Intraoperative Record IntraOp Document Type FT Summary Primary Physician: Pa WEBB MD Finalized Date/Time: 10/16/23 09:46:21 Pt. Name: SHEY BOSS/Sex: 1950 Female Med Rec #: [id number] Physician: Pa WEBB MD Financial #: [id number] Pt. Type: O Room/Bed: / Admit/Disch: 10/13/23 [...] RN Role Performed Anesthesiologist Surgeon - Primary Chief Program Officer - Primary Group Leader Time In 10/13/23 08:55:00 10/13/23 08:55:00 10/13/23 [...] Procedure Yes Primary Surgeon Pa WEBB MD 10/13/23 08:59:00 Stop 10/13/23 09:12:00 Anesthesia Type [...] and tissue Entry 1 Skin Integrity Intact, [place], Warm, and Skin Abnormality No Dry Outcomes [...] Infante RN (more content not included)... Normal [facility] Postoperative Documentson Postoperative Documents [id number] TIFF Normal [facility] Reminderson 10-16-2023 Reminders - From: Nhi Aguirre LPN To: GSN - Clinical; Sent: 10/16/2023 10:15:48 EDT Show up: 09/11/2033 07:00:00 EST Subject: colonoscopy recall Due Date/Time: 10/12/2033 07:00:00 EDT Reminder/Recall Patient due for screening colonoscopy 10/12/2033. Normal [facility] Colonoscopy Procedure Report on 10-13-2023 Colonoscopy [...] for screening for malignant neoplasm of rectum ([id number] Z12.12, Discharge, Medical). Course: Progressing as expected. Recommendations: Repeat colonoscopy:: In 10 years. Follow-up:: if problems/questions. Diet:: Regular diet. Medication resumption:: Continue current medications. Return to activities:: After 24 hours. Education and Follow-up: Counseled: Family. [facility] Comment on above: Other Comment: Samreen dueñas Attachment - attachment storage system not supported [id number] Can be viewed in source systemMissing Attachment - attachment storage system not supported [id number] Can be viewed in source systemMissing Attachment - attachment storage system not supported [id number] Can be viewed in source systemMissing Attachment - attachment storage system not supported [id number] Can be viewed in source systemMissing Attachment - attachment storage system not supported [id number] Can be viewed in source system Consent for Treatmenton 04-0 Consent for Treatment [id number] IFF [facility] Discharge Instructionson Discharge Instructions SHEY BOSS [...] mg Tab) fluticasone nasal (Flonase 0.05 mg/inh [place]) losartan (losartan 25 mg Tab) multivitamin with [...] Pa WEBB When: Only if needed Where: [address] [place], [place] [address]dict Dali, [facility] [address] [address]- Business (1) Medications What How Much When [...] Unchanged fluticasone nasal (Flonase 0.05 mg/ inh [place]) 2 Sprays Nasal Inhalation Every day Unchanged [...] as instru (more content not included)... Normal [facility] Comment on above: Result Comment: Elec tronically Signed By: Marcy FORDE, Mariaelena\.maikol\Date and Time Signed: 10/13/23 09:33 EDT Inpatient Patient Summaryon 10-13-2023 Inpatient Patient Summary [address] [address] [facility] Clinical Discharge Instructions PERSON INFORMATION Name: SHEY BOSS [facility]IANS Admitting Physician: Pa WEBB MD Attending Physician: Pa WEBB MD PCP: LATRELL JACK MD Discharge Diagnosis: Encounter for colorectal cancer screening; Encounter for screening for malignant neoplasm of rectum Comment: PATIENT EDUCATION INFORMATION Instructions: Medication Leaflets: Follow up: With: Address: When: Pa WEBB [address] [place] [address], [address], [place] [id number] Business (1) , only if needed MEDICATION [...] (at bedtime). fluticasone nasal (Flonase 0.05 mg/inh [place]) 2 Sprays Nasal Inhalation every day. losartan [...] bedtime) as needed for sleep. Comment: Normal [facility] Main OR PACU I Recordon Main OR PACU I Record PACU Phase I Document Type FT Summary Primary Physician: Pa WEBB MD Finalized Date/Time: 10/13/23 09:54:27 Pt. Name: SHEY BOSS Tamie/Sex: 1950 Female Med Rec #: [id number] Physician: Pa WEBB MD Financial #: [id number] Pt. Type: O Room/Bed: / Admit/Disch: 10/13/23 [...] By: Mariaelena Vidal RN 10/13/23 09:54 Normal [facility] Main OR Preoperative Recordo n 10-13-2023 Main OR Preoperative Record Holding Area Document Type FT Summary Primary Physician: Pa WEBB MD Finalized Date/Time: 10/13/23 08:06:06 Pt. Name: KARYNSHEY/Sex: 1950 Female Med Rec #: [id number] Physician: Pa WEBB MD Financial #: [id number] Pt. Type: O Room/Bed: / Admit/Disch: 10/13/23 [...] Signed By: Olivia Domínguez 10/13/23 08:06 Normal [facility] Monitor Recordon 10-13-2023 Monitor Record [id number] TIFF Normal [facility] Monitor Record [id number] TIFF Normal [facility] Outpatient Surgery Discharge Instructionon 10-13-2023 Outpatient Surgery Discharge Instruction [address] [address] Patient Discharge Instructions PERSON INFORMATION [...] When: Pa Mc[address], [address], [place] [phone] [facility] (1) , only if needed Pharmacy Information: You may receive a survey from [employer] asking you to rate your care experience. Your feedback is important and will help us understand what we do well and how we can improve the quality of care we provide to you, your loved ones and our community. It?s an honor to serve you. Thank you for choosing [facility] HERE ARE THE MEDICATION CHANGES THAT [...] (at bedtime). fluticasone nasal (Flonase 0.05 mg/inh [place]) 2 Sprays Nasal Inhalation every day. losartan [...] sleep. PATIENT EDUCATION INFORMATION Instructions: Medication Leaflets: [facility] Patient Education - Texton 0 10-13-2023 [...] or gets worse throughout the day. Normal [facility] Progress Note-Physicianon Progress Note-Physician Patient: SHEY BOSS Age: 73 years Sex: Female : 1950 Associated Diagnoses: None Author: Shaji Bethea Jr., DO Postoperative Information Postoperative disposition: Postoperative disposition: Home. Optimetrix number: Optimetrix number [id number]. Anesthetic utilized: General. Physical Examination Vital Signs [...] Surgery Unit, and To home ). Normal [facility] Comment on above: Result Comment: [...] m2 Documented Medications Documented Flonase 0.05 mg/inh [place]: 2 spray(s), Nasal, Daily, Refill(s) 0, Dry [...] a day (at bedtime) Flonase 0.05 mg/inh [place] 2 spray(s), Nasal, Daily losartan 25 mg [...] All Problems BMI 39.0-39.9,adult / SNOMED CT 341960779 / Confirmed Chronic obstructive pulmonary disease / SNOMED CT 49234990 / Confirmed Dyslipidemia / SNOMED CT 1165493749 / Confirmed GERD (gastroesophageal reflux disease) / SNOMED CT 051359396 / Confirmed Hiatal hernia / SNOMED CT 063191075 / Confirmed HTN (hypertension) / SNOMED CT 6747178958 / Confirmed Insomnia / SNOMED CT 756530035 / Confirmed Lower extremity edema / SNOMED CT 666942334 / Confirmed Morbid obesity / SNOMED CT 834907998 / Confirmed EDWIN (obstructive sleep apnea) / SNOMED CT 290505529 / Confirmed Screening for malignant neoplasm of colon / SNOMED CT 482829737 / Confirmed Seasonal allergic rhinitis / SNOMED CT 591669042 / Confirmed TIA (transient ischemic attack) / SNOMED CT 419921968 / Confirmed Resolved: At risk for falls / SNOMED CT 996403629 Problem added when Risk for Falls Careplan was initiated. Resolved due to patient discharge. Resolved: Hernia / SNOMED CT 369692965 Resolved: Potential for deficient knowledge of cerebrovascular accident (CVA) / IMO 99380742 problem added based on Stroke Powerplan ordered. Resolved due to patient discharge. Resolved: Sleep apnea / SNOMED CT 691126786 Histories Past Medical History: Resolved Hernia (878521749): Resolved. Sleep apnea (394737272): Resolved. Procedure history: ORIF - Open reduction of fracture of ankle with internal fixation (501068410223765). Meniscal repair (887005418). Tonsillectomy (081450308). Hand tendon repaired (829406791). Social History Social & Psychosocial Habits Alcohol 09/12/2023 Frequency: 1-2 times per year Substance Abuse Comment: denies - 03/03/2021 07:19 - Carolyn Stewart RN 09/12/2023 Risk Assessment: Denies Substance Abuse Tobacco 09/12/2023 Tobacco Use: Former smoker, quit more Smokeless tobacco use: Never Type: Cigarettes . Physical Examination Vital Signs 10/13/2023 8:03 EDT Temperature Temporal Artery 36.3 DegC (more content not included)... Normal [facility] Comment on above: Result Comment: Elec tronically Signed By: Shaji Bethea Jr., DO.maikol\Date and Time Signed: 10/13/23 08:04 EDT Consent for Procedure/Surger yon 09-13-2023 Consent for Procedure/Surgery [id number] FF Normal [facility] Ambulatory Visit Summaryon 0 09-12-2023 [...] mg Tab) fluticasone nasal (Flonase 0.05 mg/inh [place]) losartan (losartan 25 mg Tab) multivitamin with [...] Unchanged fluticasone nasal (Flonase 0.05 mg/ inh [place]) 2 Sprays Nasal Inhalation Every day Contact [...] you for choosing us for your care. [facility] Provider Letteron 08-25-2023 Provider Letter (Inserted Image. Celia ble to display) August 25, 2023 SHEY BOSS [address] [place] [phone] : 1950 Dear Ms. Boss, We have been trying to reach you with no success regarding a referral from Dr Jack. It is important that you return our call upon receiving this letter so that we can set up an appointment for you in either our [place] or [place] office. Also, at the time of your call, please provide us with your current demographic and insurance information. Thank you for your prompt attention to this matter. Sincerely, [facility] General Surgery [phone] Normal [facility] Physician Referralon 024 Physician Referral [id number] IFF Normal [facility] CT LUNG CANCER SCREENINGon 0 [...] MEHNAZ SANTIAGO Date: 2022-07-28 15:28 Normal [facility] BNPon 02-22-2022 Natriuretic peptide B (Bld) [Mass/Vol] 108.0 pg/mL Normal <=900.0 [facility] Comment on above: Performed By: #### B MP, BNP, HSTROPN ####[facility] [address] [place], [place] [address]XzMichelle Trujillo CBC AUTO DIFFon 08-16-2022 BASO # 0.0 103/ul Normal 0.0-0.1 [facility] Comment on above: Performed By: #### C BC ####[facility] [address] [place] [address]Dr. Felisa Trujillo Basophils/100 WBC (Bld) 0.7 % Normal 0.2-2.0 [facility] Comment on above: Performed By: #### C BC ####[facility] [address] [place], [place] [address]Dr. Felisa Trujillo EO # 0.1 103/ul Normal 0.0-0.7 [facility] Comment on above: Performed By: #### C BC ####[facility] [address] [place], [place] [address]Dr. Felisa Trujillo Eosinophils/100 WBC (Bld) 1.4 % Normal 0.9-7.0 [facility] Comment on above: Performed By: #### C BC ####[facility] [address] [place], [place] [address]Dr. Felisa Trujillo Erythrocyte distribution width (RBC) [Ratio] 13.2 % Normal 11.0-15.0 [facility] Comment on above: Performed By: #### C BC ####[facility] [address] [place], [place] [address]Dr. Felisa Trujillo Hematocrit (Bld) [Volume fraction] 36.6 % Normal 36.0-48.0 [facility] Comment on above: Performed By: #### C BC ####[facility] [address] [place], [place] [address]Dr. Felisa Trujillo Hemoglobin (Bld) [Mass/Vol] 12.7 g/dL Normal 12.0-16.0 [facility] Comment on above: Performed By: #### C BC ####[facility] [address] [place], [place] [address]Dr. Felisa Trujillo IG # 0.01 10e3/ul Normal 0.00-0.03 [facility] Comment on above: Performed By: #### C BC ####[facility] [address] [place], [place] [address]Dr. Felisa Trujillo IG % 0.2 % Normal 0.0-0.5 [facility] Comment on above: Performed By: #### C BC ####[facility] [address] [place] [address]DrMichelle Trujillo LYMPH # 1.0 103/ul Critically low 1.2-3.[address] [facility] Comment on above: Performed By: #### C BC ####[facility] [address] [place] [address]DrMichelle Trujillo Lymphocytes/100 WBC (Bld) 22.3 % Normal 20.5-60.0 [facility] Comment on above: Performed By: #### C BC ####[facility] [address] [place], [place] [address]DrMichelle Trujillo MANUAL DIFF REQ NO Normal [facility] Comment on above: Performed By: #### C BC ####[facility] [address] [place] [address]DrMichelle Trujillo MCH (RBC) [Entitic mass] 31.8 pg Normal 26.7-34.0 [facility] Comment on above: Performed By: #### C BC ####[facility] [address] [place], [place] [address]DrMichelle Trujillo MCHC (RBC) [Mass/Vol] 34.7 g/dL Normal 29.9-35.2 [facility] Comment on above: Performed By: #### C BC ####[facility] [address] [place], [place] [address]DrMichelle Trujillo MCV (RBC) [Entitic vol] 91.7 fL Normal 81.0-99.0 [facility] Comment on above: Performed By: #### C BC ####[facility] [address] [place], [place] [address]DrMichelle Trujillo MONO # 0.5 103/ul Normal 0.3-0.8 [facility] Comment on above: Performed By: #### C BC ####[facility] [address] [place], [place] [address]DrMichelle Trujillo Monocytes/100 WBC (Bld) 11.7 % Normal 1.7-12.0 [facility] Comment on above: Performed By: #### C BC ####[facility] [address] [place] [address]Dr. Felisa Trujillo NEUT # 2.7 103/ul Normal 1.4-6.5 [facility] Comment on above: Performed By: #### C BC ####[facility] [address] [place] [address]Dr. Felisa Trujillo Neutrophils/100 WBC (Bld) 63.7 % Normal 43.0-75.0 [facility] Comment on above: Performed By: #### C BC ####[facility] [address] [place], [place] [address]Dr. Felisa Trujillo Platelet mean volume (Bld) [Entitic vol] 10.2 fL Normal 9.5-13.5 [facility] Comment on above: Performed By: #### C BC ####[facility] [address] [place], [place] [address]Dr. Felisa Trujillo PLT 149 103/ul Critically low 150-450 [facility] Comment on above: Performed By: #### C BC ####[facility] [address] [place], [place] [address]Dr. Felisa Trujillo RBC 3.99 106/ul Critically low 4.20-5.40 [facility] Comment on above: Performed By: #### C BC ####[facility] [address] [place], [place] [address]Dr. Felisa Trujillo WBC 4.3 103/ul Normal 4.0-11.0 [facility] Comment on above: Performed By: #### C BC ####[facility] [address]wfks[address] [place], [place] [address]Dr. Felisa Trujillo Covid-19 PCR (CVDTB)on 02-07 SARS-CoV-2 (COVID-19) RNA DUGLAS+probe Ql (Unsp spec) Detected Critically abnormal NOT DETECTED [facility] Comment on above: Result Comment: This test is not yet approved or cleared by the [place] FDA. When there are no FDA-approved or cleared tests available, and other criteria are met, FDA can make tests available under an emergency access mechanism called an Emergency Use Authorization (EUA). The EUA for this test is supported by the Diplomatic Interpreter/Translator of Health and Human Service's declaration that [...] be used). Performed By: #### C VDTBH ####[facility] [address] [place], [place] [address]Dr. Felisa Trujillo PROF CHEM 8 (BAS METB)on Anion gap [Moles/Vol] 14.9 mmol/L Normal [facility] Comment on above: Performed By: #### B MP, BNP, HSTROPN ####[facility] [address] [place], [place] [address]Dr. Felisa Trujillo Calcium [Mass/Vol] 8.9 mg/dL Normal 8.5-10.1 [facility] Comment on above: Performed By: #### B MP, BNP, HSTROPN ####[facility] [address] [place], [place] [address]Dr. Felisa Trujillo Chloride [Moles/Vol] 104 mmol/L Normal 98-107 [facility] Comment on above: Performed By: #### B MP, BNP, HSTROPN ####[facility] [address] [place], [place] [address]Dr. Felisa Trujillo CO2 [Moles/Vol] 24.0 mmol/L Normal 21.0-32.0 [facility] Comment on above: Performed By: #### B MP, BNP, HSTROPN ####[facility] [address] [place], [place] [address]Dr. Felisa Trujillo Creatinine [Mass/Vol] 0.98 mg/dL Normal 0.55-1.02 [facility] Comment on above: Performed By: #### B MP, BNP, HSTROPN ####[facility] [address] [place] [address]Dr. Felisa Trujillo EGFR-AF ETHIOPIAN >60 Normal >=60 [facility] Comment on above: Performed By: #### B MP, BNP, HSTROPN ####[facility] [address] [place] [address]Dr. Felisa Trujillo EGFR-NON AF ETHIOPIAN 56 mL/min/1.73m2 Critically low >=60 [facility] Comment on above: Performed By: #### B MP, BNP, HSTROPN ####[facility] [address] [place] [address]Dr. Felisa Trujillo Glucose [Mass/Vol] 136 mg/dL Critically high 74-106 [facility] Comment on above: Performed By: #### B MP, BNP, HSTROPN ####[facility] [address] [place] [address]Dr. Felisa Trujillo Potassium [Moles/Vol] 3.9 mmol/L Normal 3.5-5.1 [facility] Comment on above: Performed By: #### B MP, BNP, HSTROPN ####[facility] [address] [place], [place] [address]Dr. Felisa Trujillo Sodium [Moles/Vol] 139 mmol/L Normal 136-145 [facility] Comment on above: Performed By: #### B MP, BNP, HSTROPN ####[facility] [address] [place] [address]Dr. Felisa Trujillo Urea nitrogen [Mass/Vol] 14.0 mg/dL Normal 7.0-18.0 [facility] Comment on above: Performed By: #### B MP, BNP, HSTROPN ####[facility] [address] [place], [place] [address]Dr. Felisa Trujillo Urea nitrogen/Creatinine [Mass ratio] 14.3 mg/mg Normal [facility] Comment on above: Performed By: #### B MP, BNP, HSTROPN ####[facility] [address] [place], [place] [address]Dr. Felisa Trujillo TROPONIN, HIGH SENSITIVITYon 02-22-2022 HSTROP 5.9 pg/mL Normal 4.0-51.3 [facility] Comment on above: Result Comment: CUT- OFF POINTS HAVE BEEN ESTABLISHED BASED ON THE FOURTH UNIVERSAL DEFINITIONS OF MYOCARDIAL INFARCTION. THE UPPER REFERENCE LIMIT (URL) OF TROPONIN, DEFINED THE 99TH PERCENTILE OF cTnI DISTRIBUTION IN A REFERENCE POPULATION, HAS BEEN CONFIRMED THE DECISION THRESHOLD FOR MS DIAGNOSIS. Performed By: #### B MP, BNP, HSTROPN ####[facility] [address] [place], [place] [address]Xf. Felisa Trujillo XR CHEST 1 Von 02-22-2022 [...] MEHNAZ SANTIAGO Date: 2022-02-22 13:30 Normal [facility] MAMM SCREEN 3D RONALD CADon 11-11-2021 MG MAMM SCREEN 3D RONALD CAD Patient: SHEY BOSS Exam Date: 11/11/2021 : 1950 Gender:F Ordering : DR LATRELL AJCK . Admission #: [id number] Family : Order #: [id number] CLICK HERE TO VIEW EXAM RADIOLOGY REPORT [...] lung cancer at age 46. LOCATION: [facility] BREAST COMPOSITION: Almost entirely fatty. FINDINGS: [...] MD on 11/11/2021 at 13:04 Normal [facility] BNPon 11-02-2021 Natriuretic peptide B (Bld) [Mass/Vol] 42.0 pg/mL Normal <=900.0 [facility] Comment on above: Performed By: #### H STROPN, CMP, BNP #### [facility] [address] [place] [address] Dr. Felisa Trujillo CBC AUTO DIFFon 11-02-2021 BASO # 0.1 103/ul Normal 0.0-0.1 [facility] Comment on above: Performed By: #### C BC #### [facility] [address] [place] [address] Dr. Felisa Trujillo Basophils/100 WBC (Bld) 0.8 % Normal 0.2-2.0 [facility] Comment on above: Performed By: #### C BC #### [facility] [address] [place] [address] Dr. Felisa Trujillo EO # 0.3 103/ul Normal 0.0-0.7 [facility] Comment on above: Performed By: #### C BC #### [facility] [address] [place] [address] Dr. Felisa Trujillo Eosinophils/100 WBC (Bld) 3.9 % Normal 0.9-7.0 [facility] Comment on above: Performed By: #### C BC #### [facility] [address] [place] [address] Dr. Felisa Trujillo Erythrocyte distribution width (RBC) [Ratio] 12.7 % Normal 11.0-15.0 [facility] Comment on above: Performed By: #### C BC #### [facility] [address] [place] [address] Dr. Felisa Trujillo Hematocrit (Bld) [Volume fraction] 40.2 % Normal 36.0-48.0 [facility] Comment on above: Performed By: #### C BC #### [facility] [address] [place] [address] Dr. Felisa Trujillo Hemoglobin (Bld) [Mass/Vol] 13.6 g/dL Normal 12.0-16.0 [facility] Comment on above: Performed By: #### C BC #### [facility] [address] [place] [address] Dr. Felisa Trujillo IG # 0.02 10e3/ul Normal 0.00-0.03 [facility] Comment on above: Performed By: #### C BC #### [facility] [address] [place] [address] Dr. Felisa Trujillo IG % 0.3 % Normal 0.0-0.5 [facility] Comment on above: Performed By: #### C BC #### [facility] [address] [place] [address] Dr. Felisa Trujillo LYMPH # 1.9 103/ul Normal 1.2-3.8 [facility] Comment on above: Performed By: #### C BC #### [facility] [address] [place] [address] Dr. Felisa Trujillo Lymphocytes/100 WBC (Bld) 30.0 % Normal 20.5-60.0 [facility] Comment on above: Performed By: #### C BC #### [facility] [address] [place] [address] Dr. Felisa Trujillo MANUAL DIFF REQ NO Normal [facility] Comment on above: Performed By: #### C BC #### [facility] [address] [place] [address] Dr. Felisa Trujillo MCH (RBC) [Entitic mass] 31.5 pg Normal 26.7-34.0 [facility] Comment on above: Performed By: #### C BC #### [facility] [address] [place] [address] Dr. Felisa Trujillo MCHC (RBC) [Mass/Vol] 33.8 g/dL Normal 29.9-35.2 [facility] Comment on above: Performed By: #### C BC #### [facility] [address] [place] [address] Dr. Felisa Trujillo MCV (RBC) [Entitic vol] 93.1 fL Normal 81.0-99.0 [facility] Comment on above: Performed By: #### C BC #### [facility] [address] [place] [address] Dr. Felisa Trujillo MONO # 0.6 103/ul Normal 0.3-0.8 [facility] Comment on above: Performed By: #### C BC #### [facility] [address] [place] [address] Dr. Felisa Trujillo Monocytes/100 WBC (Bld) 8.5 % Normal 1.7-12.0 [facility] Comment on above: Performed By: #### C BC #### [facility] [address] [place] [address] Dr. Felisa Trujillo NEUT # 3.7 103/ul Normal 1.4-6.5 [facility] Comment on above: Performed By: #### C BC #### [facility] [address] [place] [address] Dr. Felisa Trujillo Neutrophils/100 WBC (Bld) 56.5 % Normal 43.0-75.0 [facility] Comment on above: Performed By: #### C BC #### [facility] [address] [place] [address] Dr. Felisa Trujillo Platelet mean volume (Bld) [Entitic vol] 9.9 fL Normal 9.5-13.5 [facility] Comment on above: Performed By: #### C BC #### [facility] [address] [place] [address] Dr. Felisa Trujillo PLT 193 103/ul Normal 150-450 [facility] Comment on above: Performed By: #### C BC #### [facility] [address] [place] [address] Dr. Felisa Trujillo RBC 4.32 106/ul Normal 4.20-5.40 [facility] Comment on above: Performed By: #### C BC #### [facility] [address] [place] [address] [address] Felisa Trujillo WBC 6.5 103/ul Normal 4.0-11.0 [facility] Comment on above: Performed By: #### C BC #### [facility] [address] [place] [address] [address] Felisa Trujillo Covid-19 PCR (CVDTB)on 10-09 SARS-CoV-2 (COVID-19) RNA DUGLAS+probe Ql (Unsp spec) Not detected Normal NOT DETECTED [facility] Comment on above: Result Comment: When [...] for this test is supported by the [place] of Health and Human Service's declaration that [...] used). Performed By: #### C VDTBH #### [facility] [address] [place] [address] [address] Felisa Trujillo LACTATE/LACTIC ACIDon 2021 Lactate [Moles/Vol] 1.0 mmol/L Normal 0.4-2.0 [facility] Comment on above: Performed By: #### L ACT ####[facility] [address] [place], [place] [address]XaDr. Felisa Trujillo PH VENOUS BLOODon 11-02-2021 PCO2 VENOUS 40.3 mmHg Normal 40.0-52.0 [facility] Comment on above: Performed By: #### P HVEN ####[facility] [address] [place] [id number]. Felisa Trujillo pH VENOUS 7.431 Critically high 7.330-7.430 [facility] Comment on above: Performed By: #### P EBER ####[facility] [address] [place] [address]Dr. Felisa Trujillo PROF 14(COMP METB)on 022 Albumin [Mass/Vol] 4.1 g/dL Normal 3.4-5.0 [facility] Comment on above: Performed By: #### H STROPN, CMP, BNP ####[facility] [address] [place] [address]Dr. Felisa Trujillo Albumin/Globulin [Mass ratio] 1.1 {ratio} Normal [facility] Comment on above: Performed By: #### H STROPN, CMP, BNP ####[facility] [address] [place] [address]Dr. Felisa Trujillo ALP [Catalytic activity/Vol] 120 U/L Critically high 46-116 [facility] Comment on above: Performed By: #### H STROPN, CMP, BNP ####[facility] [address] [place] [address]Dr. Felisa Trujillo ALT [Catalytic activity/Vol] 29 U/L Normal 14-59 [facility] Comment on above: Performed By: #### H STROPN, CMP, BNP ####[facility] [address] [place] [address]Dr. Felisa Trujillo Anion gap [Moles/Vol] 14.2 mmol/L Normal [facility] Comment on above: Performed By: #### H STROPN, CMP, BNP ####[facility] [address] [place] [address]Dr. Felisa [place] AST [Catalytic activity/Vol] 24 U/L Normal 15-37 [facility] Comment on above: Performed By: #### H STROPN, CMP, BNP ####[facility] [address] [address]Dr. Felisa Trujillo Bilirubin [Mass/Vol] 0.6 mg/dL Normal 0.2-1.0 [facility] Comment on above: Performed By: #### H STROPN, CMP, BNP ####[facility] [address] [address]Dr. Felisa Trujillo Calcium [Mass/Vol] 8.8 mg/dL Normal 8.5-10.1 [facility] Comment on above: Performed By: #### H STROPN, CMP, BNP ####[facility] [address] [address]Dr. Felisa Trujillo Chloride [Moles/Vol] 103 mmol/L Normal 98-107 [facility] Comment on above: Performed By: #### H STROPN, CMP, BNP ####[facility] [address] [address]Dr. Felisa Trujillo CO2 [Moles/Vol] 25.3 mmol/L Normal 21.0-32.0 [facility] Comment on above: Performed By: #### H STROPN, CMP, BNP ####[facility] [address] [place], [place] [address]Dr. Felisa Trujillo Creatinine [Mass/Vol] 0.86 mg/dL Normal 0.55-1.02 [facility] Comment on above: Performed By: #### H STROPN, CMP, BNP ####[facility] [address] [place], [place] [address]Dr. Felisa Trujillo EGFR-AF ETHIOPIAN >60 Normal >=60 [facility] Comment on above: Performed By: #### H STROPN, CMP, BNP ####[facility] [address] [address]Dr. Felisa Trujillo EGFR-NON AF ETHIOPIAN >60 Normal >=60 [facility] Comment on above: Performed By: #### H STROPN, CMP, BNP ####[facility] [address] [address]Dr. Felisa Trujillo Globulin (S) [Mass/Vol] 3.6 g/dL Normal [facility] Comment on above: Performed By: #### H STROPN, CMP, BNP ####[facility] [address] [address]Dr. Felisa Trujillo Glucose [Mass/Vol] 90 mg/dL Normal 74-106 [facility] Comment on above: Performed By: #### H STROPN, CMP, BNP ####[facility] [address] [address]Dr. Felisa Trujillo Potassium [Moles/Vol] 3.5 mmol/L Normal 3.5-5.1 [facility] Comment on above: Performed By: #### H STROPN, CMP, BNP ####[facility] [address] [address]Dr. Felisa Trujillo Protein [Mass/Vol] 7.7 g/dL Normal 6.1-8.2 [facility] Comment on above: Performed By: #### H STROPN, CMP, BNP ####[facility] [address] [address]Dr. Felisa Trujillo Sodium [Moles/Vol] 139 mmol/L Normal 136-145 [facility] Comment on above: Performed By: #### H STROPN, CMP, BNP ####[facility] [address] [address]Dr. Felisa Trujillo Urea nitrogen [Mass/Vol] 13.0 mg/dL Normal 7.0-18.0 [facility] Comment on above: Performed By: #### H STROPN, CMP, BNP ####[facility] [address] [address]Dr. Felisa Trujillo Urea nitrogen/Creatinine [Mass ratio] 15.1 mg/mg Normal [facility] Comment on above: Performed By: #### H STROPN, CMP, BNP ####[facility] [address] [address]DrMichelle Trujillo PROTIMEon 11-02-2021 INR Coag (PPP) [Relative time] 0.99 {INR} Normal [facility] Comment on above: Performed By: #### P TT, PT #### [facility] [address] [address] [address] Felisa Trujillo INR GUIDELINES SEE BELOW Normal [facility] Comment on above: Result Comment: KAY RED INR: 2.0 - 3.0 CONDITIONS NOT LISTED BELOW 2.5 - 3.5 FOR PROSTHETIC HEART VALVE REPLACEMENT 2.5 - 3.5 RECURRENT THROMBOSIS Performed By: #### P TT, PT #### [facility] [address] [place] [address] Dr. Felisa Trujillo PT Coag (PPP) [Time] 10.7 s Normal 9.0-11.6 [facility] Comment on above: Performed By: #### P TT, PT #### [facility] [address] [address] [address] Felisa Trujillo PTTon 11-02-2021 aPTT Coag (Bld) [Time] 25.9 s Normal 22.3-36.2 [facility] Comment on above: Performed By: #### P TT, PT #### [facility] [address] [place] [address] Dr. Felisa Trujillo TROPONIN, HIGH SENSITIVITYon 11-02-2021 HSTROP 8.7 pg/mL Normal 4.0-51.3 [facility] Comment on above: Result Comment: CUT- OFF POINTS HAVE BEEN ESTABLISHED BASED ON THE FOURTH UNIVERSAL DEFINITIONS OF MYOCARDIAL INFARCTION. THE UPPER REFERENCE LIMIT (URL) OF TROPONIN, DEFINED THE 99TH PERCENTILE OF cTnI DISTRIBUTION IN A REFERENCE POPULATION, HAS BEEN CONFIRMED THE DECISION THRESHOLD FOR MS DIAGNOSIS. Performed By: #### H STROPN, CMP, BNP #### [facility] [address] [place] [address] Dr. Felisa Trujillo Covid-19 PCR (CVDTBH)on SARS-CoV-2 (COVID-19) RNA DUGLAS+probe Ql (Unsp spec) Not detected Normal NOT DETECTED [facility] Comment on above: Result Comment: This test is not yet approved or cleared by the [place] FDA. When there are no FDA-approved or cleared tests available, and other criteria are met, FDA can make tests available under an emergency access mechanism called an Emergency Use Authorization (EUA). The EUA for this test is supported by the Diplomatic Interpreter/Translator of Health and Human Service's (HHS's) declaration [...] consistent with SARS-CoV-2. Performed By: #### [facility] #### [facility] [address] [address] [address] Felisa Trujillo XR CHEST 2 Von [...] by: MEHNAZ SANTIAGO Date: 2021-09-02 14:39 Normal [facility] - AP Resultson 9 Lab - AP Results [id number]#1.00OT GTIFF Normal [facility] Pathology Sendout Teston Pathology Send Out. See Report Normal [facility] Comment on above: Order Comment: left ring finger , cyst tendon sheath Performed By: #### 2 [id number] ####[facility] (DEFAULT)[address] [place] [address] Coding Summaryon 02-08-2019 Coding Summary CODING DATE: 019 [facility] STATUS: Home PAYOR: Medicare MC APC DESCRIPTION 5112 Level 2 Musculoskeletal Procedures ADMIT DX: REASON FOR VISIT DX: M65.342 Trigger finger, left ring finger FINAL DX: PRINCIPAL: M65.342 Trigger finger, left ring finger SECONDARY: M67.442 Ganglion, left hand J44.9 Chronic obstructive pulmonary disease, unspecified PYMT PROC APC STAT DESCRIPTION DOCTOR NAME DATE 12546 5112 J1 Excision of lesion of Daquan [...] Cassy Bradley Date Saved: 02/08/2019 11:52 am [facility] Consent Formson 02-05-2019 Consent Forms [id number]#1.00OT [facility] Discharge Instructionson Discharge Instructions [id number]#1.00OT [facility] History and Physicalon 02-05 History and Physical [id number]#1.00OT [facility] MAGR Intraoperative Recordon 02-05-2019 MAGR Intraoperative Record MAGR Intra-Op Record Summary Primary Physician: Daquan Antunez DO Finalized Date/Time: 02/05/19 07:41:01 Pt. Name: SHEY BOSS/Sex: 1950 FEMALE Med Rec #: [id number] Physician: Daquan Antunez DO Financial #: [id number] Pt. Type: D Room/Bed: / Admit/Disch: 02/04/19 [...] Role Performed Surgeon - Primary Anesthesiologist of Chief Program Officer Record Time In 02/04/19 15:31:00 02/04/19 15:31:00 02/04/19 15:31:00 Time Out 02/04/19 16:08:00 02/04/19 16:08:00 02/04/19 16:08:00 Procedure Trigger Finger Release Trigger Finger Release Trigger Finger Release Last Modified By: Toshia Plascencia RN, Barbara RN Long, Barbara RN 02/04/19 16:16:05 02/04/19 16:16:05 02/04/19 16:16:05 Entry 4 Entry 5 Case Attendee Paloma Esparza Regina CST Role Performed Scrub Personnel Business Support Coordinator Time In 02/04/19 15:31:00 02/04/19 15:31:00 Time [...] Daquan Antunez Outcome Met (O.60) Yes Jeremy JOVEL Last Modified By: Toshia Plascencia RN 02/04/19 [...] Outcome Met (O.40) Yes Last Modified By: Tosiha Plascencia RN 02/04/19 15:58:34 Post-Care Text: E.40 [...] Modify Pick List 02/05/19 07:40 MHBLONG Modify [facility] List [facility] Medication Managementon 01-09 Medication Management [id number]#1.00OT [facility] Provider Orderson 02-05-2019 Provider Orders [id number]#1.00OT [facility] Anesthesia Noteon 02-04-2019 Anesthesia Note [...] Problems Chronic back pain / SNOMED CT 607718224 / Confirmed Former smoker / SNOMED CT 47364281 / Confirmed GERD (gastroesophageal reflux disease) / SNOMED CT 199636568 / Confirmed Scar tissue / SNOMED CT 832458041 / Confirmed Sleep apnea / SNOMED CT 367888627 / Confirmed Histories Family History: No family history items have been selected or recorded. Procedure history: Tonsillectomy (415029628). Epidural injection of lumbar spine using fluoroscopic guidance (9128630509). Social History Alcohol Assessment Use: Current. Beer, [...] rhythm. Review / Management Laboratory Results Plan [place] [employer]hesiologists#(ASA) physical status classification: Class [...] on: 02/04/2019 15:44 EDT] Alirio Mcclellan MD [facility] Inpatient Patient Summaryon 02-04-2019 Inpatient [place] [address] Patient Discharge Instructions Name: SHEY BOSS : 52 Patient Address: [address] [place] [address] Primary Care Provider: Name: LATRELL JACK After you are discharged if you find you have any questions, please, call [phone] ext [phone] to speak to a nurse. Discharge Diagnosis: Trigger finger Prescription Information: If you have been given a prescription for narcotics, seek immediate medical attention if you have any difficulty breathing or any sudden status changes such as confusion and sleepiness. If you or anyone you know is experiencing suicidal thoughts, mental health, alcohol and/or drug addiction problems; contact the [facility] 30/01 Crisis Hotline -Text 4HJHN to 593722. If you received any narcotics, sedation, or [...] business decisions or sign any legal documents [facility] would like to thank you for allowing us to assist you with your healthcare needs. The following includes patient education materials and information regarding your injury/illness. SHEY BOSS has been given the following list of follow-up instructions, prescriptions, and patient education materials: Follow-up Instructions With: Address: When: Daquan Antunez [address], [address] [place] [address] Business (2) 02/12/2019 2:00 PM With: Address: When: LATRELL JACK [address] [place], [place] [id number] [facility] (1) Medications During the course of your [...] awake -DO NOT lift heavy objects or rn lactation consultant forcefully with the affected hand -DO NOT [...] or concerns, please call the office at [phone] or go to the emergency room -Follow [...] Control and Prevention [facility]2019 [facility] Postoperative Record [facility] Phase II Record Summary Primary Physician: Daquan Antunez DO Finalized Date/Time: 02/04/19 17:11:50 Pt. Name: SHEY BOSS/Sex: 1950 FEMALE Med Rec #: [id number] Physician: Daquan Antunez DO Financial #: [id number] Pt. Type: D Room/Bed: / Admit/Disch: 02/04/19 [...] Signed By: Stefanie Garibay RN 02/04/19 17:11 [facility] Preoperative Recordon 0 02-04-2019 [facility] Preoperative Record MAGR Pre-Op Record Summary Primary Physician: Daquan Antunez DO Finalized Date/Time: 02/04/19 15:37:19 Pt. Name: SHEY BOSS NORMAN /Sex: 1950 FEMALE Med Rec #: [id number] Physician: Daquan Antunez DO Financial #: [id number] Pt. Type: D Room/Bed: / Admit/Disch: 02/04/19 [...] By: Toshia Plascencia RN 02/04/19 15:37 Normal [facility] Operative Report - Surgeon/P ilyakasey 02-04-2019 Operative Report - Surgeon/Physician Procedure: Release [...] on: 02/04/2019 16:37 EDT] Daquan Antunez DO [facility] Patient Handouton 02-04-[address] [place]ARA POST OPERATIVE INSTRUCTIONS FOR FINGER SURGERY/MALLET FINGER REPAIR SURGEONS WRITTEN INSTRUTCTIONS:' -Keep your hand elevated above your elbow for the first 24 hours after surgery and apply an ice bag at intervals for the first 24 hours -Wiggle the unaffected fingers frequently while awake -DO NOT lift heavy objects or rn lactation consultant forcefully with the affected hand -DO NOT [...] or concerns, please call the office at [phone] or go to the emergency room -Follow up as scheduled [facility] Progress Note - Nurseon 01-08 Progress Note - Nurse Spoke with pt regarding arrival time of 1145 and NPO status. Verbalized understanding. Pt instructed she will need a local combination truck driver. Verbalized understanding. [Electronically Signed on: 02/01/2019 14:53 EDT] Kika Akers RN [Verified on: 02/01/2019 14:53 EDT] Kika Akers RN [facility] Coding Summaryon 01-29-2019 Coding Summary CODING DATE: 019 [facility] STATUS: Home PAYOR: Medicare MC APC [...] Cueto Date Saved: 01/29/2019 01:42 pm Normal [facility] .Auto Diff 1on 01-28-2019 Auto [place] % 8 % Normal 1-12 [facility] Comment on above: Performed By: #### 7 [id number], [id number] #### [facility] (DEFAULT) [address] [place] [address] Baso Abs# 0.0 x10 Normal 0.0-0.2 [facility] Comment on above: Performed By: #### 7 [id number], [id number] #### [facility] (DEFAULT) [address] [place] [address] Basophils/100 WBC (Bld) 0.4 % Normal 0.2-2.0 [facility] Comment on above: Performed By: #### 7 [id number], [id number] #### [facility] (DEFAULT) [address] [place] [address] Eos Abs# 0.2 x10 Normal 0.0-0.4 [facility] Comment on above: Performed By: #### 7 [id number], [id number] #### [facility] (DEFAULT) [address] [place] [address] Eosinophils/100 WBC (Bld) 3.5 % Normal 0.9-4.0 [facility] Comment on above: Performed By: #### 7 [id number], [id number] #### [facility] (DEFAULT) [address] [place] [address] Lymphocytes (Bld) [#/Vol] 1.6 x10 Normal 1.3-2.9 [facility] Comment on above: Performed By: #### 7 [id number], [id number] #### [facility] (DEFAULT) [address] [place] [address] Lymphocytes/100 WBC (Bld) 32 % Normal 14-48 [facility] Comment on above: Performed By: #### 7 [id number], [id number] #### [facility] (DEFAULT) [address] [place] [address] [place]ou Abs# 0.4 x10 Normal 0.0-0.8 [facility] Comment on above: Performed By: #### 7 [id number], [id number] #### [facility] (DEFAULT) [address] [place] [address] Neut Abs# 2.8 x10 Normal 1.5-9.2 [facility] Comment on above: Performed By: #### 7 [id number], [id number] #### [facility] (DEFAULT) [address] [place] [address] Neutrophils/100 WBC (Bld) 56 % Normal 44-88 [facility] Comment on above: Performed By: #### 7 [id number], [id number] #### [facility] (DEFAULT) [address] [place] [address] CBC w/ Auto Diffon 9 Erythrocyte distribution width (RBC) [Ratio] 13.4 % Normal 11.5-15.0 [facility] Comment on above: Performed By: #### 7 [id number], [id number] #### [facility] (DEFAULT) [address] [place] [address] Hematocrit (Bld) [Volume fraction] 40.4 % Normal 33.7-40.4 [facility] Comment on above: Performed By: #### 7 [id number], [id number] #### [facility] (DEFAULT) [address] [place] [address] Hemoglobin (Bld) [Mass/Vol] 13.9 g/dL Normal 11.3-15.9 [facility] Comment on above: Performed By: #### 7 [id number], [id number] #### [facility] (DEFAULT) [address] [place] [address] Man Diff? Auto Normal [facility] Comment on above: Performed By: #### 7 [id number], [id number] #### [facility] (DEFAULT) [address] [place] [address] MCH (RBC) [Entitic mass] 31 pg Normal 24-34 [facility] Comment on above: Performed By: #### 7 [id number], [id number] #### [facility] (DEFAULT) [address] [place] [address] MCHC (RBC) [Mass/Vol] 34 g/dL Normal 26-37 [facility] Comment on above: Performed By: #### 7 [id number], [id number] #### [facility] (DEFAULT) [address] [place] [address] MCV (RBC) [Entitic vol] 90 fL Normal 81-100 [facility] Comment on above: Performed By: #### 7 [id number], [id number] #### [facility] (DEFAULT) [address] [place] [address] Platelet mean volume (Bld) [Entitic vol] 10.3 fL High 6.3-10.2 [facility] Comment on above: Performed By: #### 7 [id number], [id number] #### [facility] (DEFAULT) [address] [place] [address] Platelets (Bld) [#/Vol] 199 x10 Normal 138-427 [facility] Comment on above: Performed By: #### 7 [id number], [id number] #### [facility] (DEFAULT) [address] [place] [address] RBC (Bld) [#/Vol] 4.47 x10 Normal 3.70-5.30 [facility] Comment on above: Performed By: #### 7 [id number], [id number] #### [facility] (DEFAULT) [address] [place] [address] WBC (Bld) [#/Vol] 5.1 x10 Normal 3.5-10.5 [facility] Comment on above: Performed By: #### 7 [id number], [id number] #### [facility] (DEFAULT) [address] [place] [address] Vital Signs Date Time Vital Sign Value Performing Clinician Facility 05-15-2024 10:02-0500 Body height 160 cm Latrell Jack MD Work Phone: [facility] 05-15-2024 10:02-0500 Body mass index (BMI) [Ratio] 38.26 kg/m2 Latrell Jack MD Work Phone: [facility] 05-15-2024 10:02-0500 Body temperature 97.11 [degF] Latrell Jack MD Work Phone: [facility] 05-15-2024 10:02-0500 Body weight 97.98 kg Latrlel Jack MD Work Phone: [facility] 05-15-2024 10:02-0500 Diastolic blood pressure 80 mm[Hg] Latrell Jack MD Work Phone: [facility] 05-15-2024 10:02-0500 Heart rate 78 /min Latrell Jakc MD Work Phone: [facility] 05-15-2024 10:02-0500 Respiratory rate 22 /min Latrell Jack MD Work Phone: [facility] 05-15-2024 10:02-0500 SaO2% (BldA) [Mass fraction] 97 % Latrell Jack MD Work Phone: [facility] 05-15-2024 10:02-0500 Systolic blood pressure 148 mm[Hg] Latrell Jack MD Work Phone: [facility] 04-29-2024 10:55-0400 Body height 152.4 cm Xavier Boyd MD Work Phone: [facility] 04-29-2024 10:55-0400 Body mass index (BMI) [Ratio] 42.58 kg/m2 Xavier Boyd MD Work Phone: [facility] 04-29-2024 10:55-0400 Body temperature 98.49 [degF] Xavier Boyd MD Work Phone: [facility] 04-29-2024 10:55-0400 Body weight 98.88 kg Xavier Boyd MD Work Phone: [facility] 04-29-2024 10:55-0400 Diastolic blood pressure 65 mm[Hg] Xavier Boyd MD Work Phone: [facility] 04-29-2024 10:55-0400 Heart rate 90 /min Xavier Boyd MD Work Phone: [facility] 04-29-2024 10:55-0400 Systolic blood pressure 144 mm[Hg] Xavier Boyd MD Work Phone: [facility] 03-20-2024 13:23-0400 Diastolic blood pressure 81 mm[Hg] Leos Sarmini [facility] 03-20-2024 13:23-0400 Heart rate 66 /min Leos Sarmini [facility] 03-20-2024 13:23-0400 Mean blood pressure 112 mm[Hg] Leos Sarmini [facility] 03-20-2024 13:23-0400 Respiratory rate 15 /min Leos Sarmini [facility] 03-20-2024 13:23-0400 SaO2% (BldA) [Mass fraction] 94 % Leos Sarmini [facility] 03-20-2024 13:23-0400 Systolic blood pressure 173 mm[Hg] Leos Sarmini [facility] 03-20-2024 13:15-0400 Diastolic blood pressure 78 mm[Hg] Leos Sarmini [facility] 03-20-2024 13:15-0400 Heart rate 64 /min Leos Sarmini [facility] 03-20-2024 13:15-0400 Mean blood pressure 105 mm[Hg] Leos Sarmini [facility] 03-20-2024 13:15-0400 Respiratory rate 13 /min Leos Sarmini [facility] 03-20-2024 13:15-0400 SaO2% (BldA) [Mass fraction] 96 % Leos Sarmini [facility] 03-20-2024 13:15-0400 Systolic blood pressure 159 mm[Hg] Leos Sarmini [facility] 03-20-2024 13:05-0400 Diastolic blood pressure 76 mm[Hg] Leos Sarmini [facility] 03-20-2024 13:05-0400 Heart rate 64 /min Leos Sarmini [facility] 03-20-2024 13:05-0400 Mean blood pressure 99 mm[Hg] Leos Sarmini [facility] 03-20-2024 13:05-0400 Respiratory rate 12 /min Leos Sarmini [facility] 03-20-2024 13:05-0400 SaO2% (BldA) [Mass fraction] 96 % Leos Sarmini [facility] 03-20-2024 13:05-0400 Systolic blood pressure 145 mm[Hg] Leos Sarmini [facility] 03-20-2024 12:58-0400 Body temperature 97.16 [degF] Leos Sarmini [facility] 03-20-2024 12:50-0400 Respiratory rate 15 /min Leos Sarmini [facility] 03-20-2024 12:45-0400 Respiratory rate 18 /min Leos Sarmini [facility] 03-20-2024 11:14-0400 Blood Pressure Location Leos Sarmini [facility] 03-20-2024 11:14-0400 Body temperature 97.7 [degF] Leos Sarmini [facility] 03-20-2024 11:14-0400 Respiratory rate 18 /min Leos Sarmini [facility] 02-26-2024 09:12-0400 Blood Pressure Location Leos Sarmini [facility] 02-26-2024 09:12-0400 Diastolic blood pressure 81 mm[Hg] Leos Sarmini [facility] 02-26-2024 09:12-0400 Heart rate 66 /min Leos Sarmini [facility] 02-26-2024 09:12-0400 Respiratory rate 16 /min Leos Sarmini [facility] 02-26-2024 09:12-0400 Systolic blood pressure 131 mm[Hg] Leos Sarmini [facility] 10-13-2023 09:42-0400 Diastolic blood pressure 80 mm[Hg] Pa NILL [facility] 10-13-2023 09:42-0400 Heart rate 69 /min Pa NILL [facility] 10-13-2023 09:42-0400 Mean blood pressure 102 mm[Hg] Pa NILL [facility] 10-13-2023 09:42-0400 Respiratory rate 15 /min Pa NILL [facility] 10-13-2023 09:42-0400 SaO2% (BldA) [Mass fraction] 97 % Pa NILL [facility] 10-13-2023 09:42-0400 Systolic blood pressure 146 mm[Hg] Pa NILL [facility] 10-13-2023 09:32-0400 Diastolic blood pressure 76 mm[Hg] Pa NILL [facility] 10-13-2023 09:32-0400 Heart rate 67 /min Pa NILL [facility] 10-13-2023 09:32-0400 Mean blood pressure 94 mm[Hg] Pa NILL [facility] 10-13-2023 09:32-0400 Respiratory rate 20 /min Pa NILL [facility] 10-13-2023 09:32-0400 SaO2% (BldA) [Mass fraction] 95 % Pa NILL [facility] 10-13-2023 09:32-0400 Systolic blood pressure 129 mm[Hg] Pa NILL [facility] 10-13-2023 09:27-0400 Diastolic blood pressure 71 mm[Hg] Pa NILL [facility] 10-13-2023 09:27-0400 Heart rate 70 /min Pa NILL [facility] 10-13-2023 09:27-0400 Mean blood pressure 92 mm[Hg] Pa NILL [facility] 10-13-2023 09:27-0400 Respiratory rate 15 /min Pa NILL [facility] 10-13-2023 09:27-0400 SaO2% (BldA) [Mass fraction] 96 % Pa WEBB [facility] 10-13-2023 09:27-0400 Systolic blood pressure 134 mm[Hg] Pa WEBB [facility] 10-13-2023 09:17-0400 Body temperature 97.16 [degF] Pa PALMERL [facility] 10-13-2023 09:10-0400 Respiratory rate 16 /min Pa WEBB [facility] 10-13-2023 09:05-0400 Respiratory rate 16 /min Pa WEBB [facility] 10-13-2023 08:03-0400 Body temperature 97.34 [degF] Pa WEBB [facility] 08-11-2023 09:53-0500 Body height 160 cm Latrell Jack MD Work Phone: [facility] 08-11-2023 09:53-0500 Body mass index (BMI) [Ratio] 40.39 kg/m2 Latrell Jack MD Work Phone: [facility] 08-11-2023 09:53-0500 Body temperature 97.11 [degF] Latrell Jack MD Work Phone: [facility] 08-11-2023 09:53-0500 Body weight 103.42 kg Latrell Jack MD Work Phone: [facility] 08-11-2023 09:53-0500 Diastolic blood pressure 70 mm[Hg] Latrell Jack MD Work Phone: [facility] 08-11-2023 09:53-0500 Heart rate 94 /min Latrell Jack MD Work Phone: [facility] 08-11-2023 09:53-0500 SaO2% (BldA) [Mass fraction] 97 % Latrell Jack MD Work Phone: [facility] 08-11-2023 09:53-0500 Systolic blood pressure 140 mm[Hg] Latrell Jack MD Work Phone: [facility] Encounters Encounter Date Encounter Type Care Provider Facility Start: 05-30-2024 End: 05-30-2024 ambulatory SANDRA ARCOS Not Available Start: 05-30-2024 End: 05-30-2024 Bamboo flowsheet Sandra Arcos WILDLIFE OFFICER Work Phone: [facility] Start: 05-30-2024 End: 05-30-2024 Bamboo flowsheet Sandra Arcos WILDLIFE OFFICER Work Phone: [facility] Start: 05-27-2024 End: 05-27-2024 ambulatory Talat Arguello MD Facility:[facility] Start: 05-15-2024 End: 05-15-2024 Office outpatient visit 25 minutes Latrell Jack MD Work Phone: [facility] Comment on above: Essential hypertensi on, benign (CMS/HCC) (Primary Dx); Chronic obstructive pulmonary disease, unspecified COPD type (CMS/HCC); Hiatal hernia with gastroesophageal reflux disease without esophagitis; EDWIN (obstructive sleep apnea); Primary osteoarthritis of both knees; Primary insomnia; Class 2 severe obesity due to excess calories with serious comorbidity and body mass index (BMI) of 38.0 to 38.9 in adult (CMS/HCC) Start: 05-15-2024 End: 05-15-2024 ambulatory LATRELL JACK Not Available Start: 05-06-2024 End: 05-06-2024 ambulatory Talat Arguello MD Facility:[facility] Start: 05-04-2024 End: 05-06-2024 ambulatory Xavier Boyd MD Work Phone: [facility] Comment on above: 07.24.24 Cure (Lap P araesophageal Hernia Repair/EGD 4 hours los 1) Start: 05-04-2024 End: 05-06-2024 Preprocedural examination done Xavier Boyd MD Work Phone: [facility] Start: 04-29-2024 End: 04-29-2024 ambulatory XAVIER BOYD Facility:[facility] Start: 04-29-2024 End: 04-29-2024 Office outpatient new 45 minutes Xavier Boyd MD Work Phone: General Surgery Comment on above: Paraesophageal herni a (Primary Dx) Start: 04-22-2024 End: 04-22-2024 Telephone encounter Ashlie Calderon OZZY General Surgery Start: 04-15-2024 End: 04-15-2024 ambulatory Talat Arguello MD Facility:[facility] Start: 04-11-2024 End: 04-11-2024 Patient encounter procedure Mao Morrow PhD Work Phone: [facility] Comment on above: Memory loss (Primary Dx); Word finding difficulty; EDWIN on CPAP; Other insomnia; Other chronic pain; Generalized anxiety disorder (CMS/HCC); Severe episode of recurrent major depressive disorder, 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) Start: 04-11-2024 End: 04-11-2024 ambulatory SANDRA ARCOS Not Available Start: 03-26-2024 End: 03-26-2024 ambulatory MAO MORROW Not Available Start: 03-26-2024 End: 03-26-2024 ambulatory Leos Talal Sarmini Facility[facility] Start: 03-25-2024 End: 03-25-2024 ambulatory DIOMEDES MATUTE Not Available Start: 03-20-2024 End: 03-20-2024 ambulatory Leos Talal Sarmini Facility:[facility] Start: 03-20-2024 End: 03-20-2024 Patient encounter procedure Leos Talal Sarmini [facility] Start: 03-07-2024 End: 03-07-2024 ambulatory DIOMEDES MATUTE Not Available Start: 02-26-2024 End: 02-26-2024 ambulatory Leos Talal Sarmini Facility:[facility] Start: 02-26-2024 End: 02-26-2024 Patient encounter procedure Katie Hairston [facility] Start: 02-13-2024 ambulatory Pa NILL [facility] Start: 02-09-2024 End: 02-09-2024 ambulatory LATRELL JACK Not Available Start: 10-13-2023 End: 10-13-2023 ambulatory Pa R NILL Facility:[facility] Start: 10-13-2023 End: 10-13-2023 Patient encounter procedure Pa R NILL [facility] Start: 09-12-2023 End: 09-12-2023 ambulatory Pa R NILL Facility:[facility] Start: 09-05-2023 ambulatory Pa NILL Facility:[facility] Start: 08-11-2023 Bamboo flowsheet Latrell Jack [...] 09-09-2021 Encounter for prepro cedural laboratory examination [facility] Start: 09-07-2021 End: 09-07-[address] LATRELL JACK Facility:[facility] Start: 09-07-2021 End: 09-07-2021 Encounter for preprocedural laboratory examination DR LATRELL JAKC Facility:[facility] Start: 09-03-2021 Encounter for prepro cedural cardiovascular examination [facility] Start: 09-02-2021 End: 09-03-[address] LATRELL JACK Facility:[facility] Start: 09-02-2021 End: 09-03-2021 Encounter for preprocedural cardiovascular examination DR LATRELL JACK Facility:[facility] Procedures Date Procedure Procedure Detail Performing Clinician Start: 03-20-2024 Esophagogastroduodenoscopy Katie george Start: 11-28-2023 Mammography Mao Morrow PhD Work Phone: Start: 10-13-2023 Colonoscopy Mao Morrow PhD Work Phone: Start: 10-13-2023 Colonoscopy Pa WEBB Hand tendon repaired Pa NILL Open reduction of fr acture of ankle with internal fixation Pa NILL Repair of meniscus Pa MORALES Tonsillectomy Pa NILEmily Plan of Treatment Date Care Activity Detail Author Start: 10-12-2033 Screening for malign ant neoplasm of colon [facility] Start: 09-21-2026 RSV Vaccine (1 - 1-d ose 75+ series) RSV Vaccine (1 - 1-dose 75+ series) [facility] Start: 11-27-2024 Screening for malign ant neoplasm of breast Mammogram [facility] Start: 08-16-2024 End: 08-16-2024 Patient encounter procedure 08/16/2024 9:00 AM EST Office Visit [facility] [address] [place] [address] Latrell Jack MD [address] [place] [address] [facility] Start: 07-24-2024 Subsequent hospital visit by physician 07/24/2024 Hospital Encounter Admitting [address] [place] [address] Xavier Boyd MD [address] [place], [place] [id number] Preoperative examination [Z01.818], Paraesophageal hernia [K44.9] Admitting Comment on above: Preoperative examina tion [Z01.818], Paraesophageal hernia [K44.9] Start: 06-29-2024 End: 10-29-2024 aPTT in Platelet poor plasma by Coagulation assay ACTIVATED PARTIAL THROMBOPLASTIN TIME Lab Routine Preoperative examination Paraesophageal hernia Abnormal coagulation profile Expected: 06/29/2024, Expires: 10/29/2024 [facility] Comment on above: Expected: 06/29/2024 , Expires: 10/29/2024 Start: 06-29-2024 End: 10-29-2024 CBC W Auto Differential panel - Blood COMPLETE BLOOD COUNT AND DIFFERENTIAL Lab Routine Preoperative examination Paraesophageal hernia Expected: 06/29/2024, Expires: 10/29/2024 [facility] Comment on above: Expected: 06/29/2024 , Expires: 10/29/2024 Start: 06-29-2024 End: 10-29-2024 Comprehensive metabolic 2000 panel - Serum or Plasma COMPREHENSIVE METABOLIC PANEL Lab Routine Preoperative examination Paraesophageal hernia Expected: 06/29/2024, Expires: 10/29/2024 [facility] Comment on above: Expected: 06/29/2024 , Expires: 10/29/2024 Start: 06-29-2024 End: 10-29-2024 PT panel - Platelet poor plasma by Coagulation assay PROTHROMBIN TIME Lab Routine Preoperative examination Paraesophageal hernia Abnormal results of liver function studies Expected: 06/29/2024, Expires: 10/29/2024 [facility] Comment on above: Expected: 06/29/2024 , Expires: 10/29/2024 Start: 06-29-2024 End: 10-29-2024 TYPE AND SCREEN,30 DAY TYPE AND SCREEN,30 DAY Blood Bank Routine Preoperative examination Paraesophageal hernia Expected: 06/29/2024, Expires: 10/29/2024 [facility] Comment on above: Expected: 06/29/2024 , Expires: 10/29/2024 Start: 05-30-2024 End: 05-30-2024 Patient encounter procedure [facility] Comment on above: Arrived Start: 05-15-2024 End: 05-15-2024 Patient encounter procedure 05/15/2024 10:00 AM EST Office Visit [facility] [address] [place] [address] Latrell Jack MD [address] [place] [address] [facility] Start: 04-29-2024 End: 04-29-2024 Patient encounter procedure 04/29/2024 11:00 AM EDT Office Visit General Surgery [address] [address] Xavier Boyd MD [address] [place] [address] Hiatal Hernia General Surgery Comment on above: Hiatal Hernia Start: 03-10-2024 Covid-19 Vaccine () Covid-19 Vaccine () [facility] Start: 03-10-2024 Covid-19 Vaccine (6 - 2024-25 season) Covid-19 Vaccine ( season) [facility] Start: 03-10-2024 Influenza vaccination Influenza Vacc ine (#1) [facility] Start: 02-09-2024 End: 02-09-2024 Patient encounter procedure 02/09/2024 9:45 AM EDT Office Visit [facility] [address] [place] [address] Latrell Jack MD [address] [place] [address] [facility] Start: 08-11-2023 End: 08-11-2024 Basic metabolic 1998 panel - Serum or Plasma Basic metabolic panel Lab Routine Encounter for long-term (current) use of medications Expected: 08/11/2023 (Approximate), Expires: 08/11/2024 [facility] Comment on above: Expected: 08/11/2023 (Approximate), Expires: 08/11/2024 Start: 08-11-2023 End: 08-11-2024 CBC W Auto Differential panel - Blood CBC and differential Lab Routine Encounter for long-term (current) use of medications Expected: 08/11/2023 (Approximate), Expires: 08/11/2024 [facility] Comment on above: Expected: 08/11/2023 (Approximate), Expires: 08/11/2024 Start: 08-11-2023 End: 08-11-2024 Hemoglobin A1c measurement Hemoglobin A1c Lab Routine Morbid obesity due to excess calories (CMS/HCC) Expected: 08/11/2023 (Approximate), Expires: 08/11/2024 [facility] Work Phone: Comment on above: Expected: 08/11/2023 (Approximate), Expires: 08/11/2024 Start: 08-11-2023 End: 08-11-2024 Hepatic function 2000 panel - Serum or Plasma Hepatic function panel Lab Routine Encounter for long-term (current) use of medications Expected: 08/11/2023 (Approximate), Expires: 08/11/2024 [facility] Comment on above: Expected: 08/11/2023 (Approximate), Expires: 08/11/2024 Start: 08-11-2023 End: 08-11-2024 Lipid 1996 panel - Serum or Plasma Lipid panel Lab Routine Dyslipidemia ([facility]/HCC) Expected: 08/11/2023 (Approximate), Expires: 08/11/2024 [facility] Comment on above: Expected: 08/11/2023 (Approximate), Expires: 08/11/2024 Start: 08-11-2023 End: 08-11-2024 Thyrotropin [Units/volume] in Serum or Plasma TSH Lab Routine Morbid obesity due to excess calories ([facility]/HCC) Expected: 08/11/2023 (Approximate), Expires: 08/11/2024 [facility] Comment on above: Expected: 08/11/2023 (Approximate), Expires: 08/11/2024 Start: 08-11-2023 End: 08-11-2023 Patient encounter procedure 08/11/2023 9:45 AM EST Office Visit [facility] [address] [place] [address] Latrell Jack MD [address] [place] [address] Arrived [facility] Comment on above: Arrived Start: 07-10-2023 Advance Directive Discussion Advance Directive Discussion [facility] Start: 03-10-2023 Influenza vaccination Influenza Vacc ine (#1) [facility] Start: 09-21-2016 Screening for osteoporosis Bone Density Screening [facility] Start: 09-21-2001 Shingrix Vaccine (1 of 2) Shingrix Vaccine (1 of 2) [facility] Start: 09-21-1996 Diabetes Screening Diabetes Screenin g [facility] Start: 09-21-1996 Lipid panel Lipid Screening [facility] Start: 09-21-1996 Screening for malign ant neoplasm of colon [facility] Start: 1991 Screening for malign ant neoplasm of breast [facility] Start: 09-21-1970 Urine microalbumin profile DTaP,Tdap,Td Vaccine (1 - Tdap) [facility] Start: 09-21-1969 Anxiety Screening Anxiety Screening [facility] Start: 09-21-1969 Depression Screening Depression Scre ening [facility] Start: 09-21-1969 Hepatitis C screening Hepatitis C Sc swathi [facility] Start: 1951 Screening for malign ant neoplasm of colon [facility] End: 05-04-2025 ECG COMPLETE ECG COMPLETE ECG Routine Preoperative examination Paraesophageal hernia 1 Occurrences starting 05/06/2024 until 05/04/2025 [facility] Comment on above: 1 Occurrences starti ng 05/06/2024 until 05/04/2025 Laps rpr paraesphgl hrna incl fundplsty w/mesh LAPAROSCOPIC RPR PARAESOPHAGEAL HERNIA W/O FUNDOPLASTY W/ MESH Preoperative examination Paraesophageal hernia [facility] REFER FOR ADMIT INTERVIEW REFER FOR ADMIT INTERVIEW Procedures Routine Preoperative examination Paraesophageal hernia Ordered: 05/06/2024 [facility] Work Phone: Comment on above: Ordered: 05/06/2024 Immunizations Immunization Date Immunization Notes Care Provider Fa cility 04-09-2023 influenza virus vacc ine, unspecified formulation Pa WEBB [facility] 05-03-2022 SARS-CoV-2 (COVID-19 ) [id number] Pa WEBB [facility] 05-03-2022 influenza virus vacc ine, unspecified formulation Latrell Jack MD Work Phone: [facility] 11-25-2021 pneumococcal conjuga te vaccine, 13 valent Mao Morrow PhD Work Phone: [facility] 04-12-2021 influenza virus vacc ine, unspecified formulation Katie Hairston [facility] 04-12-2021 SARS-CoV-2 (COVID-19 ) mRNA BNT-162b2 vax Pa WEBB [facility] Comment on above: Result Comment: 2023: [id number] 09-14-2020 SARS-CoV-2 (COVID-19 ) mRNA BNT-162b2 vax Pa [employer] [facility] [place] Comment on above: Result Comment: 2023: [id number] 08-27-2020 SARS-CoV-2 (COVID-19 ) mRNA BNT-162b2 vax [employer] [facility] Comment on above: Result Comment: 2023: [id number] 06-16-2020 influenza virus vacc ine, unspecified formulation Leos Sarmini [facility] 05-16-2019 influenza virus vacc ine, unspecified formulation Leos Sarmini [facility] 05-16-2019 pneumococcal polysaccharide vaccine, 23 valent Leos Sarmini [facility] 05-12-2018 influenza virus vacc ine, unspecified formulation Leos Sarmini [facility] 01-31-2018 pneumococcal conjuga te vaccine, 13 valent Leos Sarmini [facility] 05-10-2016 influenza virus vacc ine, unspecified formulation Leos Sarmini [facility] 04-16-2015 influenza virus vacc ine, unspecified formulation Leos Sarmini [facility] Payers Date Payer Category Payer Private Health Insurance [id number] 2016 Medicare [id number] 2016 Unknown 1959 Medicare [id number] 1959 Private Health Insurance [id number] 1951 Unknown [id number] 2.16.84 0.1.233332.3.579.2.593 1951 Unknown [id number] 2.16.84 0.1.130420.3.579.2.593 1951 Unknown [id number] 2.16.84 0.1.496274.3.579.2.593 1951 Unknown [id number] 2.16.84 0.1.912715.3.579.2.593 1951 Unknown [id number] 2.16.84 0.1.954047.3.579.2.593 1951 Unknown [id number] 2.16.84 0.1.512764.3.579.2.593 1951 Unknown [id number] 2.16.84 0.1.402278.3.579.2.593 1951 Unknown [id number] 2.16.8 40.1.306261.3.579.2.727 1951 Unknown [id number] 2.16.8 40.1.186800.3.579.2.727 1951 Unknown [id number] 2.16.8 40.1.368923.3.579.2.727 1951 Unknown [id number] 2.16.8 40.1.214407.3.579.2.727 1951 Unknown [id number] 2.16.8 40.1.942310.3.579.2.727 1951 Unknown [id number] 2.16. 840.1.472470.3.579.2.196 1951 Unknown [id number] 2.16. 840.1.265033.3.579.2.196 1951 Unknown [id number] 2.16. 840.1.096575.3.579.2.196 1951 Unknown [id number] 2.16.84 0.1.937801.3.579.2.1259 1951 Unknown [id number] 2.16.84 0.1.867125.3.579.2.1259 1951 Unknown [id number] 2.16.84 0.1.207909.3.579.2.9 1951 Unknown [id number] 2.16.84 0.1.409334.3.579.2.9 1951 Unknown [id number] 2.16.84 0.1.810764.3.579.2.9 1951 Unknown [id number] 2.16.84 0.1.783674.3.579.2.9 1951 Unknown [id number] 2.16.84 0.1.554774.3.579.2.9 1951 Unknown [id number] 2.16.84 0.1.851507.3.579.2.1259 Social History Date Type Detail Facility Start: 08-05-2023 End: 03-07-2024 Tobacco smoking status NVIS Ex-smoker [facility] Start: 07-10-1967 End: 01-08-2012 History of tobacco use Current smoker [facility] Start: 07-10-1967 End: 01-08-2012 History of tobacco use Cigarette Smoker [facility] Start: 08-05-2023 End: 02-02-2024 Cigarettes smoked current (pack per day) - Reported 1 [facility] Start: 08-05-2023 End: 02-02-2024 Tobacco use panel [facility] Start: 1950 Sex Assigned At Not on file [facility] Start: 08-11-2023 End: 03-07-2024 Tobacco use and exposure Smokeless tobacco non-user [facility] Tobacco smoking status Never [facility] [place] Start: 03-07-2024 End: 05-15-2024 Alcoholic beverage intake Current drinker of alcohol (finding) [facility] Are you now , , , [...] per day [facility] Tobacco smoking stat [facility] Tobacco smoking consumption unknown [facility] Start: 04-23-2024 Gender identity Identifies as female gender (finding) [facility] Functional Status Date Assessment Result Facility 03-20-2024 Functional Status N/A [facility] 02-26-2024 Functional Status N/A [facility] 10-13-2023 Functional Status N/A [facility] Clinical Notes 09-10-2021 to 05-15-2024 Latrell Jack [...] surgery 07/24. Associated Problem(s): Essential hypertension, benign ([facility]) BP improved but still elevated and increase losartan. Continue to monitor PRN. Associated Problem(s): COPD (chronic obstructive pulmonary disease) ([facility]) Symptoms stable and continue spiriva. Use albuterol PRN. Associated Problem(s): Class 2 severe obesity due to excess calories with serious comorbidity and body mass index (BMI) of 38.0 to 38.9 in adult ([facility]) Weight loss indicated. Images from the original [...] of 38.0 to 38.9 in adult (CMS/HCC) Weight loss indicated. documented in this encounter [facility] 04-29-2024 Note HNO ID: [id number] Author: XAVIER BOYD MD Service: ? Author [...] blinded, parallel group trial IRB NO.: #[id number] CREDIT REVIEW ANALYST: Pa Prakash MD COORDINATOR/Research Nurse/Manager Medical: Abdelrahman He MD Phone/email: [phone], [email or web address] Consenting was performed in person prior to [...] CRITERIA Yes No 1. The patient lacks Scottish language fluency or cannot understand the consent form/study procedures [] [x] 2. The patient is [] [x] 3. The patient has a BMI >45 [] [x] 4. The patient has undergone previous hiatal hernia repair [] [x] 5. The patient will undergo paraesophageal hernia repair with a concurrent bariatric procedure to reduce stomach volume [] [x] [facility] 04-29-2024 History of Present illness Narrative Consultation [...] blinded, parallel group trial IRB NO.: #[id number] CREDIT REVIEW ANALYST: Pa Prakash MD COORDINATOR/Research Nurse/Manager Medical: Abdelrahman He MD Phone/email: [phone], [email or web address] Consenting was performed in person prior to [...] CRITERIA Yes No 1. The patient lacks Scottish language fluency or cannot understand the consent form/study procedures [] [x] 2. The patient is [] [x] 3. The patient has a BMI >45 [] [x] 4. The patient has undergone previous hiatal hernia repair [] [x] 5. The patient will undergo paraesophageal hernia repair with a concurrent bariatric procedure to reduce stomach volume [] [x] [facility]dominal [facility] - HISTORY AND PHYSICAL SUBJECTIVE: [...] MD General Surgery documented in this encounter [facility] 04-29-2024 Note HNO ID: [id number] Author: YAN MOSER, ? Service: ? Author Type: Physician Type: Progress Notes Filed: 04/29/2024 12:10 Note Text: [facility] - HISTORY AND [...] Consents obtained Yan Moser MD General Surgery [facility] 04-29-2024 Nurse Note What is the reason for your visit today? Consult Who is your referring physician? Katie Hairston Are you having poor oral intake? YES Have you had unintentional weight loss of 15 lbs/7 Kg in the last 3-6 months? NO Bowels: soft, more frequent Wound: none Temperature: No Drains: No [facility] 04-29-2024 Nurse Note What is the reason for your visit today? Consult Who is your referring physician? Katie Ameyaalberto Are you having poor oral intake? YES Have you had unintentional weight loss of 15 lbs/7 Kg in the last 3-6 months? NO Bowels: soft, more frequent Wound: none Temperature: No Drains: No documented in this encounter [facility] 04-22-2024 Telephone encounter Note Spoke with PT she state no prior surgeries [facility] 04-22-2024 Miscellaneous Notes Spoke with PT she state no prior surgeries documented in this encounter [facility] 04-11-2024 History of Present [...] No history of alcohol/substance abuse. Reformed smoker. [place] language [place]. Completed high school education as well as some college. Described self as a C student. 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 Motor/Speed of Processing: Left-handed. 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 Recognition discriminability 69th [...] Please contact me with any questions at [phone]. documented in this encounter [facility] 03-27-2024 Note Endoscopic Procedure Report - Other [...] 1 tab, Oral, Daily Flonase 0.05 mg/inh [place]: 2 spray(s), Nasal, Daily, Refill(s) 0, Dry [...] a day (at bedtime) Flonase 0.05 mg/inh [place] 2 spray(s), Nasal, Daily losartan 25 mg [...] All Problems HTN (hypertension) / SNOMED CT 9445093764 / Confirmed Chronic obstructive pulmonary disease / SNOMED CT [id number] / Confirmed Insomnia / SNOMED CT 124889356 / Confirmed Seasonal allergic rhinitis / SNOMED CT 623988217 / Confirmed Dyslipidemia / SNOMED CT 6135717547 / Confirmed BMI 39.0-39.9,adult / SNOMED CT 228340378 / Confirmed Morbid obesity / SNOMED CT 386438772 / Confirmed GERD (gastroesophageal reflux disease) / SNOMED CT 646452452 / Confirmed Hiatal hernia / SNOMED CT 333138949 / Confirmed EDWIN (obstructive sleep apnea) / SNOMED CT 077163901 / Confirmed Lower extremity edema / SNOMED CT 823752908 / Confirmed TIA (transient ischemic attack) / SNOMED CT 621670029 / Confirmed Screening for malignant neoplasm of colon / SNOMED CT 850850587 / Confirmed Dysphagia / SNOMED CT 46736969 / Confirmed Histories Past Medical History: Resolved Hernia (817043052): Resolved. Sleep apnea (652206464): Resolved. Family History: Father Alcoholism Primary malignant neoplasm of lung COPD Mother Cardiac arrest Alzheimer's disease Procedure history: Colonoscopy (045624510) on 10/13/2023 at 73 Years. ORIF - Open reduction of fracture of ankle with internal fixation (082371543879730). Meniscal repair (247244827). Tonsillectomy (712733545). Hand tendon repaired (838128954). Social History Social & Psychosocial Habits Alcohol 02/26/2024 Frequency: 1-2 times per year Substance Abuse Comment: denies - 03/03/2021 07:19 - Terry FORDE, Carolyn Gil 02/26/2024 Risk Assessment: Denies Substance Abuse Tobacco 02/26/2024 Tobacco Use: Former smoker, quit more Smokeless tobacco use: Never Type: Cigarettes 02/26/2024 Tobacco Use: Former smoker, quit more . Physical Examination Vital Signs (last 24 hrs) Last Charted Temp Temporal 36.5 DegC (MAR 20) Heart Rate Monitored 72 bpm (MAR 20) SBP H 173 mmHg (MAR 20) DBP 72 mmHg (MAR 20) Weight 100 kg (MAR 20) General: in Nad Abdomen: Soft, NTND Impression and Plan Impression: DYSPHAGIA Plan: -EGD [facility] Comment on above: Result Comment: wrNovawise g folder Electronically Signed By: Yovanny OLIVO, [...] Follow these instructions at home: Medicines Take xkbc-bih-qzipqbi and prescription medicines only as told by [...] or drinks. ?Garlic or onions. ?Spicy foods. ?[place] fruits. ?Tomato-based foods. ?Fatty or fried foods. [...] provider. Document Revised: 01/09/2023 Document Reviewed: 01/09/2023 99tests Patient Education 2023 [employer]. 03/20/2024 13:07:56 Gastritis, Adult, Epqw-cj-Haif Gastritis, Adult Gastritis is irritation and swelling [...] Follow these instructions at home: Medicines Take tgag-nem-tzcqhpf and prescription medicines only as told by [...] provider. Document Revised: 10/30/2021 Document Reviewed: 10/30/2021 99tests Patient Education 2023 [employer]. 03/20/2024 13:07:48 Hiatal Hernia Hiatal Hernia A [...] reduce GERD symptoms. Medicines. These may include: ?Igcg-muf-wsgtqbn antacids. ?Medicines that make your stomach empty [...] may include: ?Fatty foods, like fried foods. ?[place] fruits, like oranges or lemon. ?Other foods [...] Do not drink alcohol. General instructions Take tfut-zne-kdmqubp and prescription medicines only as told by [...] provider. Document Revised: 08/23/2022 Document Reviewed: 08/23/2022 99tests Patient Education 2023 [employer]. 03/20/2024 13:07:46 Endoscopy, Care After Procedure [facility] [place] Endoscopy Care After Procedure Please [...] Document Re-Released: 12/18/2006 ExitCare Patient Information 2009 [employer]. Follow Up Care 02/26/2024 09:52:05 With:Yovanny OLIVO, SENAIT Sifuentes, [facility] Address: When: Unknown Comments:Call for any problems. Office will call to schedule follow up appointment [facility] 03-20-2024 Evaluation + Plan note Future Scheduled TestsXR Esophagus 03/20/24 [facility] 03-20-2024 Note Patient Education - Text [...] Document Re-Released: 12/18/2006 ExitCare? Patient Information ?2009 [employer]. Gastroenterology Hiatal Hernia A hiatal hernia occurs [...] symptoms. ? Medicines. These may include: ? Xkgr-bog-hzilybw antacids. ? Medicines that make your stomach [...] Avoid putting pressu (more content not included)... [facility] 03-20-2024 Note Endoscopic Procedure Report [...] jpg Rec1_hd_video____35_581. jpg Rec1_hd_video_2023____25_745. jpg Rec1_hd_video____15_326. jpg Rec1_hd_video____14_566. jpg Rec1_hd_video__00_01_833. jpg . Post-Procedure Complications: none. Estimated blood [...] surgery referral is indicated, will be ordered [facility] Comment on above: Result Comment: Elec tronically Signed By: Yovanny OLIVO, Katie Torres\.br\Date and Time Signed: 03/20/24 12:58 EDT Other Comment: Samreen dueñas Attachment - attachment storage system not supported [id number] Can be viewed in source systemMissing Attachment - attachment storage system not supported [id number] Can be viewed in source systemMissing Attachment - attachment storage system not supported [id number] Can be viewed in source systemMissing Attachment - attachment storage system not supported [id number] Can be viewed in source systemMissing Attachment - attachment storage system not supported 7438021 Can be viewed in source systemMissing Attachment - attachment storage system not supported 6733219 Can be viewed in source system 03-20-2024 [...] 1 tab, Oral, Daily Flonase 0.05 mg/inh Chester: 2 spray(s), Nasal, Daily, Refill(s) 0, Dry [...] a day (at bedtime) Flonase 0.05 mg/inh Chester 2 spray(s), Nasal, Daily losartan 25 mg [...] All Problems HTN (hypertension) / SNOMED CT 4462328194 / Confirmed Chronic obstructive pulmonary disease / SNOMED CT 99372952 / Confirmed Insomnia / SNOMED CT 792537588 / Confirmed Seasonal allergic rhinitis / SNOMED CT 332536654 / Confirmed Dyslipidemia / SNOMED CT 8665342276 / Confirmed BMI 39.0-39.9,adult / SNOMED CT 860791759 / Confirmed Morbid obesity / SNOMED CT 791321816 / Confirmed GERD (gastroesophageal reflux disease) / SNOMED CT 820969745 / Confirmed Hiatal hernia / SNOMED CT 951912379 / Confirmed EDWIN (obstructive sleep apnea) / SNOMED CT 752471293 / Confirmed Lower extremity edema / SNOMED CT 592517999 / Confirmed TIA (transient ischemic attack) / SNOMED CT 419785071 / Confirmed Screening for malignant neoplasm of colon / SNOMED CT 114818988 / Confirmed Dysphagia / SNOMED CT 05642138 / Confirmed Histories Past Medical History: Resolved Hernia (577049600): Resolved. Sleep apnea (092219322): Resolved. Family History: Father Alcoholism Primary malignant neoplasm of lung COPD Mother Cardiac arrest Alzheimer's disease Procedure history: Colonoscopy (959618257) on 10/13/2023 at 73 Years. ORIF - Open reduction of fracture of ankle with internal fixation (799531221664892). Meniscal repair (311096255). Tonsillectomy (004443167). Hand tendon repaired (937878499). Social History Social & Psychosocial Habits Alcohol [...] Impression and Plan Impression: DYSPHAGIA Plan: -EGD [facility] Comment on above: Result Comment: Elec tronically Signed By: Yovanny OLIVO, Katie Torres\.br\Date and Time Signed: 03/20/24 12:47 EDT 10-16-2023 Note [id number] 385#1.00TIFF [facility] 10-13-2023 Evaluation + Plan note Extrac clarke from: Title:ANES Post-operative Note - General Author: Shaji Bethea Jr., DO Date:10/13/23 Plan Transfer/Discharge: Transfer/Discharge Discharge when meets criteria ( From PACU to Ambulatory Surgery Unit, and To home ). Extracted from: Title:ANES Pre-operative Note - Endo Author:Shaji Mendoza Jr., DO Date:10/13/23 Plan [place] [employer]hesi[employer] (ASA) physical status classification: Class III. Anesthetic Preoperative Plan: Anesthesia General, and -TIVA. [facility]04-05-2024 Hospital Discharge instructions Patient Education 10/13/2023 09:31:42 Colonoscopy, Care After Surgery Salam (CUSTOM) Colonoscopy Care After Surgery Please read the instructions outlined below and refer to this sheet in the next few weeks. These discharge instructions provide you with general information on [facility] Your doctor may also give you [...] Up Care 09/12/2023 10:17:58 With:Pa WEBB Address: [facility] [address], [address] [place] [id number] Business (1) When: only if needed [facility]04-05-2024 NotePatient: SHEY BOSS Age: 73 years Sex: Female : 1950 Associated Diagnoses: None Author: Pa WEBB MD Subjective no changes to H & PFKettering HealthComment on above:Result Comment: Electronically Signed By: Pa WEBB MD\.br\Date and Time Signed: 10/13/23 09:45 [id number] NoteChief Complaint consultation for colonoscopy HPI Staff [...] a day (at bedtime) Flonase 0.05 mg/inh [place], 2 spray(s), Nasal, Daily losartan 25 mg [...] Alcoholism: Father. Alzheimer's di (more content not included)...[facility] Comment: Electronically Signed By: TRACEY OLIVO, Pa Lynn\Date and Time Signed: 09/12/23 10:16 [id number] History of Present illness Narrative* Latrell Jack [...] to General Surgery documented in [facility] RoadAzhzggumef58-23-0819 NoteEXAMINATION: XR CHEST 1 V HISTORY: SHORTNESS [...] Electronically authenticated by: MEHNAZ SANTIAGO Date: 2021-11-02 16:39[facility]03-04-2022 NotePROCEDURE: XR ANKLE RT MIN 3 [...] Electronically authenticated by: WILLARD ANAND Date: 2021-09-10 09:02[facility]03-04-2022 NotePROCEDURE: XR ANKLE RT 2V COMPARISON: 03/02/2020. HISTORY: Pain FINDINGS: 35 seconds of fluoroscopy. 5 fluoroscopic images Interval removal of internal fixation hardware. Components of 2 fractured screws across the tibiofibular syndesmosis remain on image #5 IMPRESSION: Removal of lateral fibular plate and screws Electronically authenticated by: WILLARD ANAND Date: 2021-09-10 08:30[facility] Future Appointments Appointment Date:03/20/2024 12:15:00 PM Scheduled Provider: Location:[facility] Appointment Type:Surgery FT [facility] Evaluation note* Diagnosis Essential [...] 40.0-44.9, adult (Z68.41) documented in this encounter [facility]* Diagnosis Memory loss- Primary Word finding difficulty EDWIN on CPAP Other insomnia Other chronic pain Generalized anxiety disorder (CMS/HCC) Generalized anxiety disorder Severe episode of recurrent major depressive disorder, 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) documented in this encounter [facility]* Diagnosis Paraesophageal hernia- Primary Diaphragmatic hernia without mention of obstruction or gangrene [facility] Diagnosis Preoperative examination- Primary Preoperative examination, unspecified Paraesophageal hernia Diaphragmatic hernia without mention of obstruction or gangrene Abnormal results of liver function studies Nonspecific abnormal results of liver function study Abnormal coagulation profile [facility]* Diagnosis Essential hypertension, benign (CMS/HCC)- Primary [...] Narrative No data available for this section [facility] No data available for this section [facility] Progress note No data available for this section [facility] (narrative)* Consultation (Routine) - Pending Review Specialty Diagnoses / Procedures Referred By Joan junior Referred To Contact General Surgery Diagnoses Screening for colon cancer Procedures CO OFFICE/OUTPATIENT [facility] 60 MINUTES Latrell Jack MD [address] [place] [address] Pa Webb MD [address] [place] [address] Referral ID Status Reason Start Date Expiration Date Visits Requested Visits Authorized [id number] Pending Review Specialty Services Required 08/11/2023 02/07/2024 [...] Advanced Directives Records Found Hospital Course Note [facility] SURGERY Clinical Discharge Summary PERSON INFORMATION Name SHEY BOSS Age 68 Years 51 Sex FEMALE Language Scottish PCP LATRELL JACK Marital Status Single Med Service Ambulatory Surgery Acct# Arrival 02/04/19 11:44:00 Visit Reason SURGERY - RELEASE TRIGGER FINGER LEFT RING FINGER AND E/O CYST LEFT RING FINGER Acuity LOS 012 05:38 Address: [address] [place] [address] Comment: PROVIDER INFORMATION VITALS INFORMATION Vital Sign [...] FOR PERIOPERATIVE MEDICINE - PREOPERATIVE OPTIMIZATION OFFICE/OUTPATIENT [facility] 60 MINUTES Katarzyna Carter, JAVA FLEX DEVELOPER.PAPER DELIVERER [address] [address] Referral ID Status Reason Start Date Expiration Date Visits Requested Visits Authorized [id number] Authorized PCP Requested Referral 4 05/04/2025 1 1 Specialty Diagnoses / Procedures Referred By Contac t Referred [facility] Diagnoses Preoperative examination Paraesophageal hernia Procedures ECG COMPLETE ECG ROUTINE ECG W/LEAST 12 LDS W/I&R Katarzyna Carter APRN.PAPER DELIVERER [address] [address] [facility] [place] [address] [place] [address] Referral ID Status Reason Start Date Expiration Date Visits Requested Visits Authorized [id number] New Request Auto-Generat ed Referral 4 05/04/2025 1 1 Additional Source Comments INFORMATION SOURCE (unrecogn ized section and content) DATE CREATED AUTHOR 02/17/2019 [facility] DATE CREATED AUTHOR AUTHOR'S ORGANIZ ATION 08/03/2022 [facility] DATE CREATED AUTHOR AUTHOR'S ORGANIZ ATION 03/28/2024 [facility] DATE CREATED AUTHOR AUTHOR'S ORGANIZ ATION 03/30/2024 [facility] Fer[facility] DATE CREATED AUTHOR AUTHOR'S ORGANIZ ATION 04/04/2024 [facility] DATE CREATED AUTHOR AUTHOR'S ORGANIZ ATION 04/30/2024 [facility] DATE CREATED AUTHOR AUTHOR'S ORGANIZ ATION 06/01/2024 [facility] DATE CREATED AUTHOR AUTHOR'S ORGANIZ ATION 06/02/2024 [facility] dical Specialists EPIC Care Teams (unrecognized sec tion and content) Dictating Machine Transcriber Relationship Specialty Start Date End Date Latrell Jack MD [address] [place] [phone] PCP - General Family Medicine 08/05/23 Dictating Machine Transcriber Relationship Specialty Start Date End Date Latrell Jack MD [address] [place] [address] PCP - General Family Medicine 08/05/23 Dictating Machine Transcriber Relationship Specialty Start Date End Date Latrell Jack MD [address] [place] [address] PCP - General Family Medicine 08/05/23 Dictating Machine Transcriber Relationship Specialty Start Date End Date Katie Hairston MD [address] [place] [address] Internal Medicine 04/02/24 Dictating Machine Transcriber Relationship Specialty Start Date End Date Katie Hairston MD [address] [place] [address] Internal Medicine 04/02/24 Dictating Machine Transcriber Relationship Specialty Start Date End Date Katie Hairston MD [address] [place] [phone] Internal Medicine 04/02/24 Dictating Machine Transcriber Relationship Specialty Start Date End Date Latrell Jack MD [address] [place] [address] PCP - General Family Medicine 08/05/23 Dictating Machine Transcriber Relationship Specialty Start Date End Date Latrell Jack MD [address] [place] [address] PCP - General Family Medicine [...] informatio n is protected by the [facility] Confidentiality of Alcohol and Drug Abuse Patient Records regulations: The Federal rules restrict any use of the information to criminally investigate or prosecute any alcohol or drug abuse patient.[facility] the event this information is protected by the Federal Confidentiality of Alcohol and Drug Abuse Patient Records regulations: The Federal rules restrict any use of the information to criminally investigate or prosecute any alcohol or drug abuse patient.[facility] Center[facility] the event this information is protected by the Federal Confidentiality of Alcohol and Drug Abuse Patient Records regulations: The Federal rules restrict any use of the information to criminally investigate or prosecute any alcohol or drug abuse patient.[facility] FOR RECORDS PERTAINING TO [...] BE BASED ON THE PRIMARY CLINICAL RECORDS. [facility] [employer] [facility]. provides no warranty or guarantee of the accuracy or completeness of information in this document.
[2024-06-10 07:15] VITALS: BP 159/93; PULSE 78; TEMP 36.6; O2SAT 100
[2024-06-10 08:00] VITALS: BP 179/80; BP 182/86; PULSE 71; PULSE 75; O2SAT 95
[2024-06-10] MEDS: LIDOCAINE HCL 2% 400 MG/20 ML MDV INJ (08:02)
[2024-06-10] MEDS: BUPIVACAINE HCL 0.25% PF 25 MG/10 ML VIAL 8 ML INJ (08:02)
--- NOTE | 2024-06-10 08:04 | W.PM.PROCNOT ---
Date of procedure: 06/10/24 Pre-op diagnosis: Pain due to lumbar spondylosis without myelopathy Post-op diagnosis: same as pre-op Procedure: Procedure: Bilateral L4-5, L5-S1 medial branch block Medications: Bupivacaine 0.25% 6cc The patient was seen and examined in the preoperative holding area.? An informed consent was obtained and placed on the chart.? The patient was brought to the medical procedure unit and placed in the prone position.? A timeout was completed verifying correct patient, procedure site, positioning, plan, and special equipment.? Using aseptic technique, the needle was placed at left L4. Under direct fluoroscopic visualization a Quincke-tipped spinal needle was advanced to the junction of the superior articulating process with the transverse process at the designated medial branch segment.? Preceded by negative aspiration, the above-mentioned injectate was placed in 1 mL aliquots.? The procedure was repeated at left L5, S1.? The needle was removed and insertion site was covered. The same procedure, at the same levels, was completed on the right side. The patient was taken to the postprocedural recovery area and monitored for an appropriate length of time before found suitable for discharge in the company of a responsible adult.? Anesthesia: Local Surgeon: Talat Arguello Pathology: none sent Condition: stable Disposition: no change
== END 2024-06-10 08:09 | disposition home or self-care (01) ==
LOC: SURGOUT 07:06
PROVIDERS: PCP Family Medicine; Visit Provider Anesthesiology
DX: M47.816 Spondylosis without myelopathy or radiculopathy, lumbar region (principal)
CPT/HCPCS: 64493; 64494; J0665

== ENCOUNTER 2024-06-13 07:48 | Outpatient (OUT) | payer MEDICARE, OTHER, SELFPAY ==
--- OUTSIDE RECORDS SUMMARY | 2024-06-13 07:54 | XMS_ITS | CCD ---
Author Organization [facility] Care Team Providers Care Tableau Administrator Name Role Phone FREDY, DR CHAPARRO Attending [...] Care Provider GUERO, LATRELL Primary Care Physician [phone] Pa WEBB Referring Unavailable NILL, Pa Vivas [...] Referring Unavailable Yovanny OLIVO, Leosbenigno Torres Unavailable [phone] XAVIER BOYD Attending Unava ilable AMEYAMINTony, LEOS [...] (1 source) Amino Acids Drug Allergy [facility] Repository Medications Current Medications Medication Drug [...] Active Start: 02-28-2024 Flonase 0.05 m g/inh Moyers 2 spray(s), Nasal, Daily, Refill(s) 0, Dry [...] 02/26/24 Status: Ordered take 1 capsule by [facility] once daily alpha tocopherol (Vitamin E) [...] (4 sources) Patient encounter status; Translations: [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] Onset: 4 08-11-2023 Episodic [...] (BMI) of 38.0 to 38.9 in adult ([facility])] Onset: 4 05-15-2024 Chronic Other [...] 02-23-2022 Episodic Other aftercare (1 source) 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; Translations: [OTH [facility] CURRENT DRUG THERAPY] Onset: 02-23-2022 Episodic Other aftercare (1 source) correction (current) use of aspirin; Translations: [[facility] CURRENT USE OF ASPIRIN] Onset: 02-23-2022 Episodic Other aftercare (5 sources) Long-term current use of drug therapy; Translations: [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 [facility] ([id number]) 1950 F Date Time Provider Department 04/22/24 ASHLIE CALDERON During your visit today, we recorded the following information about you: Ashlie Calderon 04/22/2024 5:39 PM Signed Spoke with PT she state no prior surgeries Allergies As of Date: 04/22/2024 (Not on File) Date Reviewed: Never Reviewed Problem List As Of Date: 04/22/2024 (None) Encounter Status:Closed by ASHLIE CALDERON on 04/22/24 Normal [facility] Surgical Pathology Reporton 03-26-2024 Surgical Pathology Report [facility] [address] [place] [id number]- Surgical Pathology Report Collected Date/Time: 03/20/2024 12:52 [...] is entirely submitted in one cassette. (DC) DC:[facility] Microscopic Description Microscopic examination performed unless gross only specified. The use of one or more reagents in the above tests is regulated as an analyte specific reagent (ASR). The test or tests are ordered following initial H&E microscopic examination. The performance characteristics were determined by the Laboratory of [facility]. They have not been cleared or approved by the US Food and Drug Administration. The FDA has determined that such clearance or approval is not necessary. These tests are used for clinical purposes. They should not be regarded as investigational or for research. Appropriate positive and negative controls are performed and are acceptable. Normal [facility] Comment on above: Performed By: #### 4 [id number] #### [facility] Laboratory [address] [place] [address] XR Esophaguson 03-26-2024 XR Esophagus Exam Date/Time: [...] mGy = 15.80 DAP = 464.17 Normal [facility] Main OR Intraoperative Recor don 03-22-2024 Main OR Intraoperative Record Main OR Intraoperative Record IntraOp Document Type FT Summary Primary Physician: Katie Hairston MD Finalized Date/Time: 03/22/24 14:46:15 Pt. Name: SHEY BOSS/Sex: 1950 Female Med Rec #: [id number] Physician: Katie Hairston MD Financial #: [id number] Pt. Type: O Room/Bed: / Admit/Disch: 03/20/24 [...] Анна Hairston MD, Katie Torres Role Performed APPLE PACKING HEADER Scrub - Primary Surgeon - Primary Time In 03/20/24 12:44:00 03/20/24 12:44:00 03/20/24 12:44:00 Time Out 03/20/24 12:56:00 03/20/24 12:56:00 03/20/24 12:56:00 Procedure EGD(.) EGD(.) EGD(.) Comments Dr. Hairston supervising procedure. Last Modified By: Mynor FORBES, Violette Lopez RN, Essence Pinto RN 03/22/24 14:45:45 03/20/24 12:56:36 03/20/24 12:56:36 Entry 4 Case Attendee Essence Lopez RN Role Performed Assembly Line Inspector - Primary Time In 03/20/24 12:44:00 Time [...] and tissue Entry 1 Skin Integrity Intact, [place], Warm, & Skin Abnormality No Dry Outcomes [...] Extended Positioning (more content not included)... Normal [facility] Discharge Instructionson Discharge Instructions Discharge Instructions SHEY [...] mg Tab) fluticasone nasal (Flonase 0.05 mg/inh Moyers) losartan (losartan 25 mg Tab) multivitamin with [...] Up with Yovanny OLIVO, Katie Torres, GAS, [facility] When: Comments: Call for any problems. [...] Unchanged fluticasone nasal (Flonase 0.05 mg/ inh Moyers) 2 Sprays Nasal Inhalation Every day Unchanged [...] get better (more content not included)... Normal [facility] Comment on above: Result Comment: Elec tronically Signed By: Kassy Barker I\.br\Date and Time Signed: 03/20/24 13:08 EDT Inpatient Patient Summaryon 03-20-2024 Inpatient Patient Summary Inpatient Patient Summary [place] [id number] [facility] Clinical Discharge Instructions PERSON INFORMATION [...] (at bedtime). fluticasone nasal (Flonase 0.05 mg/inh Moyers) 2 Sprays Nasal Inhalation every day. losartan [...] bedtime) as needed for sleep. Comment: Kary [facility] Main OR PACU I Recordon 03-10 Main OR PACU I Record Main OR PACU I Record PACU Phase I Document Type FT Summary Primary Physician: Katie Hairston MD Finalized Date/Time: 03/20/24 13:37:02 Pt. Name: SHEY BOSS/Sex: 1950 Female Med Rec #: [id number] Physician: Katie Hairston MD Financial #: [id number] Pt. Type: O Room/Bed: / Admit/Disch: 03/20/24 [...] By: Kassy Barker I 03/20/24 13:37 Normal [facility] Main OR Preoperative Recordo n 03-20-2024 Main OR Preoperative Record Main OR Preoperative Record Holding Area Document Type FT Summary Primary Physician: Katie Hairston MD Finalized Date/Time: 03/20/24 11:17:32 Pt. Name: SHEY BOSS/Sex: 1950 Female Med Rec #: [id number] Physician: Katie Hairston MD Financial #: [id number] Pt. Type: O Room/Bed: / Admit/Disch: 03/20/24 [...] By: Essence Lopez RN 03/20/24 11:17 Normal [facility] Outpatient Surgery Discharge Instructionon 03-20-2024 Outpatient Surgery Discharge Instruction Outpatient Surgery Discharge Instruction [place] [id number] Patient Discharge Instructions PERSON INFORMATION Name: SHEY [...] Information: You may receive a survey from [email or web address] asking you to rate your care experience. Your feedback is important and will help us understand what we do well and how we can improve the quality of care we provide to you, your loved ones and our community. It?s an honor to serve you. Thank you for choosing [facility] HERE ARE THE MEDICATION CHANGES THAT [...] (at bedtime). fluticasone nasal (Flonase 0.05 mg/inh Moyers) 2 Sprays Nasal Inhalation every day. losartan [...] sleep. PATIENT EDUCATION INFORMATION Instructions: Medication Leaflets: [facility] Proceduralon 03-20-2024 Procedural Procedural Patient: SHEY BOSS Age: 73 years Sex: Female : 1950 Associated Diagnoses: None Author: Daquan Schuler MD Postoperative Information Postoperative disposition: Postoperative disposition: To PACU. Optimetrix number: Optimetrix number [id number]. Anesthetic utilized: General. Health Status Allergies: Allergic [...] meets criteria ( To home ). Normal [facility] Procedural Procedural Patient: SHEY BOSS Age: 73 [...] 1 tab, Oral, Daily Flonase 0.05 mg/inh Moyers: 2 spray(s), Nasal, Daily, Refill(s) 0, Dry [...] a day (at bedtime) Flonase 0.05 mg/inh Moyers 2 spray(s), Nasal, Daily losartan 25 mg [...] All Problems BMI 39.0-39.9,adult / SNOMED CT 383945119 / Confirmed Chronic obstructive pulmonary disease / SNOMED CT 47817411 / Confirmed Dyslipidemia / SNOMED CT 7515153452 / Confirmed Dysphagia / SNOMED CT 36671109 / Confirmed GERD (gastroesophageal reflux disease) / SNOMED CT 550839035 / Confirmed Hiatal hernia / SNOMED CT 158607661 / Confirmed HTN (hypertension) / SNOMED CT 8860470049 / Confirmed Insomnia / SNOMED CT 754398579 / Confirmed Lower extremity edema / SNOMED CT 762198544 / Confirmed Morbid obesity / SNOMED CT 448417123 / Confirmed EDWIN (obstructive sleep apnea) / SNOMED CT 420666072 / Confirmed Screening for malignant neoplasm of colon / SNOMED CT 300884952 / Confirmed Seasonal allergic rhinitis / SNOMED CT 368187152 / Confirmed TIA (transient ischemic attack) / SNOMED CT 270927764 / Confirmed Resolved: At risk for falls / SNOMED CT 050075846 Problem added when Risk for Falls Careplan was initiated. Resolved due to patient discharge. Resolved: Hernia / SNOMED CT 723929050 Resolved: Potential for deficient knowledge of cerebrovascular accident (CVA) / IMO 56969738 problem added based on Stroke Powerplan ordered. Resolved due to patient discharge. Resolved: Sleep apnea / SNOMED CT 759816877, Active Problems (14) BMI 39.0-39.9,adult Chronic obstructive pulmonary disease Dyslipidemia Dysphagia GERD (gastroesophageal reflux disease) Hiatal hernia HTN (hypertension) Insomnia Lower extremity edema Morbid obesity EDWIN (obstructive sleep apnea) Screening for malignant neoplasm of colon Seasonal allergic rhinitis TIA (transient ischemic (more content not included)... Normal [facility] Ambulatory Visit Summaryon 0 02-26-2024 Ambulatory Visit [...] mg Tab) fluticasone nasal (Flonase 0.05 mg/inh Moyers) losartan (losartan 25 mg Tab) multivitamin with [...] Unchanged fluticasone nasal (Flonase 0.05 mg/ inh Moyers) 2 Sprays Nasal Inhalation Every day Contact [...] for choosing us for your care. Normal [facility] Gastroenterology Office/Clin ic Noteon 02-26-2024 Gastroenterology Office/Clinic [...] or gangrene) reports she had esophagram in [place] no egd in the past declined surgery [...] a day (at bedtime) Flonase 0.05 mg/inh Moyers, 2 spray(s), Nasal, Daily losartan 25 mg [...] virus vaccine, inactivated 05/03/2022 Recorded SARS-CoV-2 (COVID-19) [id number] 05/03/2022 Recorded influenza virus vaccine, inactivated 04/12/2021 [...] virus vaccine, inactivated 04/16/2015 Recorded Normal [facility] Comment on above: Result Comment: Elec tronically Signed By: Yovanny OLIVO, Katie Torres\.br\Date and Time Signed: 02/26/24 09:38 EDT IntraOperative Documentson 0 10-19-2023 IntraOperative Documents [id number]#1.0 0TIFF [facility] Consenton 10-16-2023 Consent [id number]#1.00 TIFF Normal [facility] Discharge Instructionson Discharge Instructions [id number]#1.00 TIFF [facility] Main OR Intraoperative Recor don 10-16-2023 Main OR Intraoperative Record IntraOp Document Type FT Summary Primary Physician: Pa WEBB MD Finalized Date/Time: 10/16/23 09:46:21 Pt. Name: SHEY BOSS/Sex: 1950 Female Med Rec #: [id number] Physician: Pa WEBB MD Financial #: [id number] Pt. Type: O Room/Bed: / Admit/Disch: 10/13/23 [...] RN Role Performed Anesthesiologist Surgeon - Primary Assembly Line Inspector - Primary Precast Concrete Ironworker Time In 10/13/23 08:55:00 10/13/23 08:55:00 10/13/23 [...] and tissue Entry 1 Skin Integrity Intact, [place], Warm, and Skin Abnormality No Dry Outcomes [...] Infante RN (more content not included)... Normal [facility] Postoperative Documentson Postoperative Documents [id number]#1.00 TIFF Normal [facility] Reminderson 10-16-2023 Reminders - From: Nhi Aguirre LPN To: GSN - Clinical; Sent: 10/16/2023 10:15:48 EDT Show up: 09/11/2033 07:00:00 EST Subject: colonoscopy recall Due Date/Time: 10/12/2033 07:00:00 EDT Reminder/Recall Patient due for screening colonoscopy 10/12/2033. Normal [facility] Colonoscopy Procedure Report on 10-13-2023 Colonoscopy Procedure [...] for screening for malignant neoplasm of rectum ([id number]-ZQ Z12.12, Discharge, Medical). Course: Progressing as expected. Recommendations: Repeat colonoscopy:: In 10 years. Follow-up:: if problems/questions. Diet:: Regular diet. Medication resumption:: Continue current medications. Return to activities:: After 24 hours. Education and Follow-up: Counseled: Family. [facility] Comment on above: Other Comment: Samreen dueñas Attachment - attachment storage system not supported [id number] Can be viewed in source systemMissing Attachment - attachment storage system not supported [id number] Can be viewed in source systemMissing Attachment - attachment storage system not supported [id number] Can be viewed in source systemMissing Attachment - attachment storage system not supported [id number] Can be viewed in source systemMissing Attachment - attachment storage system not supported [id number] Can be viewed in source system Consent for Treatmenton 04-0 Consent for Treatment [id number] IFF [facility] Discharge Instructionson Discharge Instructions SHEY [...] mg Tab) fluticasone nasal (Flonase 0.05 mg/inh Moyers) losartan (losartan 25 mg Tab) multivitamin with [...] WEBB When: Only if needed Where: [address] [place], [place] [address]dict [place], [facility] [address] [address]- Business (1) Medications What How Much When [...] Unchanged fluticasone nasal (Flonase 0.05 mg/ inh Moyers) 2 Sprays Nasal Inhalation Every day Unchanged [...] as instru (more content not included)... Normal [facility] Comment on above: Result Comment: Elec tronically Signed By: Marcy FORDE, Mariaelena\.maikol\Date and Time Signed: 10/13/23 09:33 EDT Inpatient Patient Summaryon 10-13-2023 Inpatient Patient Summary [address] [address] [facility] Clinical Discharge Instructions PERSON INFORMATION Name: SHEY BOSS PHYSICIANS Admitting Physician: Pa WEBB MD Attending Physician: Pa WEBB MD PCP: LATRELL JACK MD Discharge Diagnosis: Encounter for colorectal cancer screening; Encounter for screening for malignant neoplasm of rectum Comment: PATIENT EDUCATION INFORMATION Instructions: Medication Leaflets: Follow up: With: Address: When: Pa WEBB [address] [place] [address], [address], [place] [phone] Business (1) , only if needed MEDICATION [...] (at bedtime). fluticasone nasal (Flonase 0.05 mg/inh Moyers) 2 Sprays Nasal Inhalation every day. losartan [...] bedtime) as needed for sleep. Comment: Normal [facility] Main OR PACU I Recordon Main OR PACU I Record PACU Phase I Document Type FT Summary Primary Physician: Pa WEBB MD Finalized Date/Time: 10/13/23 09:54:27 Pt. Name: SHEY BOSS Tamie/Sex: 1950 Female Med Rec #: [id number] Physician: Pa WEBB MD Financial #: [id number] Pt. Type: O Room/Bed: / Admit/Disch: 10/13/23 [...] By: Mariaelena Vidal RN 10/13/23 09:54 Normal [facility] Main OR Preoperative Recordo n 10-13-2023 Main OR Preoperative Record Holding Area Document Type FT Summary Primary Physician: Pa WEBB MD Finalized Date/Time: 10/13/23 08:06:06 Pt. Name: KARYNSHEY/Sex: 1950 Female Med Rec #: [id number] Physician: Pa WEBB MD Financial #: [id number] Pt. Type: O Room/Bed: / Admit/Disch: 10/13/23 [...] Signed By: Olivia Domínguez 10/13/23 08:06 Normal [facility] Monitor Recordon 10-13-2023 Monitor Record [id number] TIFF Normal [facility] Monitor Record [id number] TIFF Normal [facility] Outpatient Surgery Discharge Instructionon 10-13-2023 Outpatient Surgery Discharge Instruction [address] [address] Patient Discharge Instructions PERSON INFORMATION [...] With: Address: When: [address], [address], [place] [phone] [facility] (1) , only if needed Pharmacy Information: You may receive a survey from [employer] asking you to rate your care experience. Your feedback is important and will help us understand what we do well and how we can improve the quality of care we provide to you, your loved ones and our community. It?s an honor to serve you. Thank you for choosing [facility] HERE ARE THE MEDICATION CHANGES THAT [...] (at bedtime). fluticasone nasal (Flonase 0.05 mg/inh Moyers) 2 Sprays Nasal Inhalation every day. losartan [...] sleep. PATIENT EDUCATION INFORMATION Instructions: Medication Leaflets: [facility] Patient Education - Texton 0 [...] or gets worse throughout the day. Normal [facility] Progress Note-Physicianon Progress Note-Physician Patient: SHEY BOSS Age: 73 years Sex: Female : 1950 Associated Diagnoses: None Author: Shaji Bethea Jr., DO Postoperative Information Postoperative disposition: Postoperative disposition: Home. Optimetrix number: Optimetrix number [id number]. Anesthetic utilized: General. Physical Examination Vital Signs [...] Surgery Unit, and To home ). Normal [facility] Comment on above: Result Comment: Elec tronically [...] m2 Documented Medications Documented Flonase 0.05 mg/inh Moyers: 2 spray(s), Nasal, Daily, Refill(s) 0, Dry [...] a day (at bedtime) Flonase 0.05 mg/inh Moyers 2 spray(s), Nasal, Daily losartan 25 mg [...] All Problems BMI 39.0-39.9,adult / SNOMED CT 362018289 / Confirmed Chronic obstructive pulmonary disease / SNOMED CT 26794971 / Confirmed Dyslipidemia / SNOMED CT 7690321787 / Confirmed GERD (gastroesophageal reflux disease) / SNOMED CT 903072077 / Confirmed Hiatal hernia / SNOMED CT 322369527 / Confirmed HTN (hypertension) / SNOMED CT 0424731922 / Confirmed Insomnia / SNOMED CT 646076971 / Confirmed Lower extremity edema / SNOMED CT 752745336 / Confirmed Morbid obesity / SNOMED CT 632843187 / Confirmed EDWIN (obstructive sleep apnea) / SNOMED CT 387722879 / Confirmed Screening for malignant neoplasm of colon / SNOMED CT 180677330 / Confirmed Seasonal allergic rhinitis / SNOMED CT 877929156 / Confirmed TIA (transient ischemic attack) / SNOMED CT 664993509 / Confirmed Resolved: At risk for falls / SNOMED CT 166202337 Problem added when Risk for Falls Careplan was initiated. Resolved due to patient discharge. Resolved: Hernia / SNOMED CT 105063262 Resolved: Potential for deficient knowledge of cerebrovascular accident (CVA) / IMO 50484363 problem added based on Stroke Powerplan ordered. Resolved due to patient discharge. Resolved: Sleep apnea / SNOMED CT 634987801 Histories Past Medical History: Resolved Hernia (835593732): Resolved. Sleep apnea (669132063): Resolved. Procedure history: ORIF - Open reduction of fracture of ankle with internal fixation (258105837343083). Meniscal repair (716875710). Tonsillectomy (473269882). Hand tendon repaired (992104347). Social History Social & Psychosocial Habits Alcohol 09/12/2023 Frequency: 1-2 times per year Substance Abuse Comment: denies - 03/03/2021 07:19 - Carolyn Stewart RN 09/12/2023 Risk Assessment: Denies Substance Abuse Tobacco 09/12/2023 Tobacco Use: Former smoker, quit more Smokeless tobacco use: Never Type: Cigarettes . Physical Examination Vital Signs 10/13/2023 8:03 EDT Temperature Temporal Artery 36.3 DegC (more content not included)... Normal [facility] Comment on above: Result Comment: Elec tronically Signed By: Shaji Bethea Jr., DO.maikol\Date and Time Signed: 10/13/23 08:04 EDT Consent for Procedure/Surger yon 09-13-2023 Consent for Procedure/Surgery [id number] FF Normal [facility] Ambulatory Visit Summaryon 0 09-12-2023 Ambulatory Visit [...] mg Tab) fluticasone nasal (Flonase 0.05 mg/inh Moyers) losartan (losartan 25 mg Tab) multivitamin with [...] Unchanged fluticasone nasal (Flonase 0.05 mg/ inh Moyers) 2 Sprays Nasal Inhalation Every day Contact [...] you for choosing us for your care. [facility] Provider Letteron 08-25-2023 Provider Letter (Inserted Image. Celia ble to display) August 25, 2023 SHYE BOSS [address] [place] [phone] : 1950 Dear Ms. Boss, We have been trying to reach you with no success regarding a referral from Dr Jack. It is important that you return our call upon receiving this letter so that we can set up an appointment for you in either our [place] or [place] office. Also, at the time of your call, please provide us with your current demographic and insurance information. Thank you for your prompt attention to this matter. Sincerely, [facility] General Surgery [phone] Normal [facility] Physician Referralon 024 Physician Referral [id number]#1.00T IFF Normal [facility] CT LUNG CANCER SCREENINGon 0 07-28-2022 CT [...] MEHNAZ SANTIAGO Date: 2022-07-28 15:28 Normal [facility] BNPon 02-22-2022 Natriuretic peptide B (Bld) [Mass/Vol] 108.0 pg/mL Normal <=900.0 [facility] Comment on above: Performed By: #### B MP, BNP, HSTROPN ####[facility] [address] [place], [place] [address]QwMichelle Trujillo CBC AUTO DIFFon 08-16-2022 BASO # 0.0 103/ul Normal 0.0-0.1 [facility] Comment on above: Performed By: #### C BC ####[facility] [address] [place] [address]Dr. Felisa Trujillo Basophils/100 WBC (Bld) 0.7 % Normal 0.2-2.0 [facility] Comment on above: Performed By: #### C BC ####[facility] [address] [place], [place] [address]Dr. Felisa Trujillo EO # 0.1 103/ul Normal 0.0-0.7 [facility] Comment on above: Performed By: #### C BC ####[facility] [address] [place], [place] [address]Dr. Felisa Trujillo Eosinophils/100 WBC (Bld) 1.4 % Normal 0.9-7.0 [facility] Comment on above: Performed By: #### C BC ####[facility] [address] [place], [place] [address]Dr. Felisa Trujillo Erythrocyte distribution width (RBC) [Ratio] 13.2 % Normal 11.0-15.0 [facility] Comment on above: Performed By: #### C BC ####[facility] [address] [place], [place] [address]Dr. Felisa Trujillo Hematocrit (Bld) [Volume fraction] 36.6 % Normal 36.0-48.0 [facility] Comment on above: Performed By: #### C BC ####[facility] [address] [place], [place] [address]Dr. Felisa Trujillo Hemoglobin (Bld) [Mass/Vol] 12.7 g/dL Normal 12.0-16.0 [facility] Comment on above: Performed By: #### C BC ####[facility] [address] [place], [place] [address]Dr. Felisa Trujillo IG # 0.01 10e3/ul Normal 0.00-0.03 [facility] Comment on above: Performed By: #### C BC ####[facility] [address] [place], [place] [address]Dr. Felisa Trujillo IG % 0.2 % Normal 0.0-0.5 [facility] Comment on above: Performed By: #### C BC ####[facility] [address] [place] [address]DrMichelle Trujillo LYMPH # 1.0 103/ul Critically low 1.2-3.8 [facility] Comment on above: Performed By: #### C BC ####[facility] [address] [place] [address]DrMichelle Trujillo Lymphocytes/100 WBC (Bld) 22.3 % Normal 20.5-60.0 [facility] Comment on above: Performed By: #### C BC ####[facility] Mofxiaoiq[address] [place], [place] [address]DrMichelle Trujillo MANUAL DIFF REQ NO Normal [facility] Comment on above: Performed By: #### C BC ####[facility] [address] [place] [address]DrMichelle Trujillo MCH (RBC) [Entitic mass] 31.8 pg Normal 26.7-34.0 [facility] Comment on above: Performed By: #### C BC ####[facility] O[address] [place], [place] [address]DrMichelle Trujillo MCHC (RBC) [Mass/Vol] 34.7 g/dL Normal 29.9-35.2 [facility] Comment on above: Performed By: #### C BC ####[facility] Uflcidyoah[address] [place], [place] [address]DrMichelle Trujillo MCV (RBC) [Entitic vol] 91.7 fL Normal 81.0-99.0 [facility] Comment on above: Performed By: #### C BC ####[facility] Cgtovwwquv[address] [place], [place] [address]DrMichelle Trujillo MONO # 0.5 103/ul Normal 0.3-0.8 [facility] Comment on above: Performed By: #### C BC ####[facility] Lnaaieqkhg[address] [place], [place] [address]DrMichelle Trujillo Monocytes/100 WBC (Bld) 11.7 % Normal 1.7-12.0 [facility] Comment on above: Performed By: #### C BC ####[facility] [address] [place] [address]Dr. Felisa Trujillo NEUT # 2.7 103/ul Normal 1.4-6.5 [facility] Comment on above: Performed By: #### C BC ####[facility] [address] [place] [address]Dr. Felisa Trujillo Neutrophils/100 WBC (Bld) 63.7 % Normal 43.0-75.0 [facility] Comment on above: Performed By: #### C BC ####[facility] Ehwrrookzu[address] [place], [place] [address]Dr. Felisa Trujillo Platelet mean volume (Bld) [Entitic vol] 10.2 fL Normal 9.5-13.5 [facility] Comment on above: Performed By: #### C BC ####[facility] Iqgqftqnrk[address] [place], [place] [address]Dr. Felisa Trujillo PLT 149 103/ul Critically low 150-450 [facility] Comment on above: Performed By: #### C BC ####[facility] Miohhosiig[address] [place], [place] [address]Dr. Felisa Trujillo RBC 3.99 106/ul Critically low 4.20-5.40 [facility] Comment on above: Performed By: #### C BC ####[facility] Wgsprmdrfj3[address] [place], [place] [address]Dr. Felisa Trujillo WBC 4.3 103/ul Normal 4.0-11.0 [facility] Comment on above: Performed By: #### C BC ####[facility] Laamgrnfzo92[address] [place], [place] [address]Dr. Felisa Trujillo Covid-19 PCR (CVDTB)on 02-07 SARS-CoV-2 (COVID-19) RNA DUGLAS+probe Ql (Unsp spec) Detected Critically abnormal NOT DETECTED [facility] Comment on above: Result Comment: This test is not yet approved or cleared by the [place] FDA. When there are no FDA-approved or cleared tests available, and other criteria are met, FDA can make tests available under an emergency access mechanism called an Emergency Use Authorization (EUA). The EUA for this test is supported by the [place] of Health and Human Service's declaration that [...] be used). Performed By: #### C VDTBH ####[facility] Ykybdgjkob034[address] [place], [place] [address]Dr. Felisa Trujillo PROF CHEM 8 (BAS METB)on Anion gap [Moles/Vol] 14.9 mmol/L Normal [facility] Comment on above: Performed By: #### B MP, BNP, HSTROPN ####[facility] Jmkfnqwhng14[address] [place], [place] [address]Dr. Felisa Trujillo Calcium [Mass/Vol] 8.9 mg/dL Normal 8.5-10.1 [facility] Comment on above: Performed By: #### B MP, BNP, HSTROPN ####[facility] Omdxbdbivr[address] [place], [place] [address]Dr. Felisa Trujillo Chloride [Moles/Vol] 104 mmol/L Normal 98-107 [facility] Comment on above: Performed By: #### B MP, BNP, HSTROPN ####[facility] Waaklky[address] [place], [place] [address]Dr. Felisa Trujillo CO2 [Moles/Vol] 24.0 mmol/L Normal 21.0-32.[address] [facility] Comment on above: Performed By: #### B MP, BNP, HSTROPN ####[facility] Vtayscvexf[address] [place], [place] [address]Dr. Felisa Trujillo Creatinine [Mass/Vol] 0.98 mg/dL Normal 0.55-1.02 [facility] Comment on above: Performed By: #### B MP, BNP, HSTROPN ####[facility] [address] [place] [address]Dr. Felisa Trujillo EGFR-AF AZERBAIJANI >60 Normal >=[address] [facility] Comment on above: Performed By: #### B MP, BNP, HSTROPN ####[facility] [address] [place] [address]Dr. Felisa Trujillo EGFR-NON AF AZERBAIJANI 56 mL/min/1.73m2 Critically low >=60 [facility] Comment on above: Performed By: #### B MP, BNP, HSTROPN ####[facility] [address] [place] [address]Dr. Felisa Trujillo Glucose [Mass/Vol] 136 mg/dL Critically high 74-106 [facility] Comment on above: Performed By: #### B MP, BNP, HSTROPN ####[facility] [address] [place] [address]Dr. Felisa Trujillo Potassium [Moles/Vol] 3.9 mmol/L Normal 3.5-5.1 [facility] Comment on above: Performed By: #### B MP, BNP, HSTROPN ####[facility] Xxededqwmk[address] [place], [place] [address]Dr. Felisa Trujillo Sodium [Moles/Vol] 139 mmol/L Normal 136-145 [facility] Comment on above: Performed By: #### B MP, BNP, HSTROPN ####[facility] [address] [place] [address]Dr. Felisa Trujillo Urea nitrogen [Mass/Vol] 14.0 mg/dL Normal 7.0-18.0 [facility] Comment on above: Performed By: #### B MP, BNP, HSTROPN ####[facility] Kokgzxnrqc[address] [place], [place] [address]Dr. Felisa Trujillo Urea nitrogen/Creatinine [Mass ratio] 14.3 mg/mg Normal [facility] Comment on above: Performed By: #### B MP, BNP, HSTROPN ####[facility] Mrsfwattia[address] [place], [place] [address]Dr. Felisa Trujillo TROPONIN, HIGH SENSITIVITYon 02-22-2022 HSTROP 5.9 pg/mL Normal 4.0-51.3 [facility] Comment on above: Result Comment: CUT- OFF POINTS HAVE BEEN ESTABLISHED BASED ON THE FOURTH UNIVERSAL DEFINITIONS OF MYOCARDIAL INFARCTION. THE UPPER REFERENCE LIMIT (URL) OF TROPONIN, DEFINED THE 99TH PERCENTILE OF cTnI DISTRIBUTION IN A REFERENCE POPULATION, HAS BEEN CONFIRMED THE DECISION THRESHOLD FOR [place] DIAGNOSIS. Performed By: #### B MP, BNP, HSTROPN ####[facility] [address] [place], [place] [address]Kz. Felisa Trujillo XR CHEST 1 Von 02-22-2022 [...] MEHNAZ SANTIAGO Date: 2022-02-22 13:30 Normal [facility] MAMM SCREEN 3D RONALD CADon 11-11-2021 MG MAMM SCREEN 3D RONALD CAD Patient: SHEY BOSS Exam Date: 11/11/2021 : 1950 Gender:F Ordering : DR LATRELL JACK . Admission #: [id number] Family : Order #: [id number] CLICK HERE TO VIEW EXAM RADIOLOGY REPORT [...] lung cancer at age 46. LOCATION: [facility] BREAST COMPOSITION: Almost entirely fatty. FINDINGS: [...] MD on 11/11/2021 at 13:04 Normal [facility] BNPon 11-02-2021 Natriuretic peptide B (Bld) [Mass/Vol] 42.0 pg/mL Normal <=900.0 [facility] Comment on above: Performed By: #### H STROPN, CMP, BNP #### [facility] [address] [place] [address] Dr. Felisa Trujillo CBC AUTO DIFFon 11-02-2021 BASO # 0.1 103/ul Normal 0.0-0.1 [facility] Comment on above: Performed By: #### C BC #### [facility] [address] [place] [address] Dr. Felisa Trujillo Basophils/100 WBC (Bld) 0.8 % Normal 0.2-2.0 [facility] Comment on above: Performed By: #### C BC #### [facility] [address] [place] [address] Dr. Felisa Trujillo EO # 0.3 103/ul Normal 0.0-0.7 [facility] Comment on above: Performed By: #### C BC #### [facility] [address] [place] [address] Dr. Felisa Trujillo Eosinophils/100 WBC (Bld) 3.9 % Normal 0.9-7.0 [facility] Comment on above: Performed By: #### C BC #### [facility] [address] [place] [address] Dr. Felisa Trujillo Erythrocyte distribution width (RBC) [Ratio] 12.7 % Normal 11.0-15.0 [facility] Comment on above: Performed By: #### C BC #### [facility] [address] [place] [address] Dr. Felisa Trujillo Hematocrit (Bld) [Volume fraction] 40.2 % Normal 36.0-48.0 [facility] Comment on above: Performed By: #### C BC #### [facility] [address] [place] [address] Dr. Felisa Trujillo Hemoglobin (Bld) [Mass/Vol] 13.6 g/dL Normal 12.0-16.0 [facility] Comment on above: Performed By: #### C BC #### [facility] [address] [place] [address] Dr. Felisa Trujillo IG # 0.02 10e3/ul Normal 0.00-0.03 [facility] Comment on above: Performed By: #### C BC #### [facility] [address] [place] [address] Dr. Felisa Trujillo IG % 0.3 % Normal 0.0-0.5 [facility] Comment on above: Performed By: #### C BC #### [facility] [address] [place] [address] Dr. Felisa Trujillo LYMPH # 1.9 103/ul Normal 1.2-3.8 [facility] Comment on above: Performed By: #### C BC #### [facility] [address] [place] [address] Dr. Felisa Trujillo Lymphocytes/100 WBC (Bld) 30.0 % Normal 20.5-60.0 [facility] Comment on above: Performed By: #### C BC #### [facility] [address] [place] [address] Dr. Felisa Trujillo MANUAL DIFF REQ NO Normal [facility] Comment on above: Performed By: #### C BC #### [facility] [address] [place] [address] Dr. Felisa Trujillo MCH (RBC) [Entitic mass] 31.5 pg Normal 26.7-34.0 [facility] Comment on above: Performed By: #### C BC #### [facility] [address] [place] [address] Dr. Felisa Trujillo MCHC (RBC) [Mass/Vol] 33.8 g/dL Normal 29.9-35.2 [facility] Comment on above: Performed By: #### C BC #### [facility] [address] [place] [address] Dr. Felisa Trujillo MCV (RBC) [Entitic vol] 93.1 fL Normal 81.0-99.0 [facility] Comment on above: Performed By: #### C BC #### [facility] [address] [place] [address] Dr. Felisa Trujillo MONO # 0.6 103/ul Normal 0.3-0.8 [facility] Comment on above: Performed By: #### C BC #### [facility] [address] [place] [address] Dr. Felisa Trujillo Monocytes/100 WBC (Bld) 8.5 % Normal 1.7-12.0 [facility] Comment on above: Performed By: #### C BC #### [facility] [address] [place] [address] Dr. Felisa Trujillo NEUT # 3.7 103/ul Normal 1.4-6.5 [facility] Comment on above: Performed By: #### C BC #### [facility] [address] [place] [address] Dr. Felisa Trujillo Neutrophils/100 WBC (Bld) 56.5 % Normal 43.0-75.0 [facility] Comment on above: Performed By: #### C BC #### [facility] [address] [place] [address] Dr. Felisa Trujillo Platelet mean volume (Bld) [Entitic vol] 9.9 fL Normal 9.5-13.5 [facility] Comment on above: Performed By: #### C BC #### [facility] [address] [place] [address] Dr. Felisa Trujillo PLT 193 103/ul Normal 150-450 [facility] Comment on above: Performed By: #### C BC #### [facility] [address] [place] [address] Dr. Felisa Trujillo RBC 4.32 106/ul Normal 4.20-5.40 [facility] Comment on above: Performed By: #### C BC #### [facility] [address] [address] [address] Felisa Trujillo WBC 6.5 103/ul Normal 4.0-11.0 [facility] Comment on above: Performed By: #### C BC #### [facility] [address] [address] [address] Felisa Trujillo Covid-19 PCR (CVDTB)on 10-09 SARS-CoV-2 (COVID-19) RNA DUGLAS+probe Ql (Unsp spec) Not detected Normal NOT DETECTED [facility] Comment on above: Result Comment: When [...] for this test is supported by the [place] of Health and Human Service's declaration that [...] used). Performed By: #### C VDTBH #### [facility] [address] [address] [address] Felisa Trujillo LACTATE/LACTIC ACIDon 2021 Lactate [Moles/Vol] 1.0 mmol/L Normal 0.4-2.[address] [facility] Comment on above: Performed By: #### L ACT ####[facility] [address] [place], [place] [address]KmDr. Felisa Trujillo PH VENOUS BLOODon 11-02-2021 PCO2 VENOUS 40.3 mmHg Normal 40.0-52.0 [facility] Comment on above: Performed By: #### P HVEN ####[facility] [address] [place] [id number]. Felisa Trujillo pH VENOUS 7.431 Critically high 7.330-7.430 [facility] Comment on above: Performed By: #### P EBER ####[facility] [address] [place] [address]Dr. Felisa Trujillo PROF 14(COMP METB)on 022 Albumin [Mass/Vol] 4.1 g/dL Normal 3.4-5.0 [facility] Comment on above: Performed By: #### H STROPN, CMP, BNP ####[facility] [address] [place] [address]Dr. Felisa Trujillo Albumin/Globulin [Mass ratio] 1.1 {ratio} Normal [facility] Comment on above: Performed By: #### H STROPN, CMP, BNP ####[facility] [address] [place] [address]Dr. Felisa Trujillo ALP [Catalytic activity/Vol] 120 U/L Critically high 46-116 [facility] Comment on above: Performed By: #### H STROPN, CMP, BNP ####[facility] [address] [place] [address]Dr. Felisa Trujillo ALT [Catalytic activity/Vol] 29 U/L Normal 14-59 [facility] Comment on above: Performed By: #### H STROPN, CMP, BNP ####[facility] [address] [place] [address]Dr. Felisa Trujillo Anion gap [Moles/Vol] 14.2 mmol/L Normal [facility] Comment on above: Performed By: #### H STROPN, CMP, BNP ####[facility] [address] [place] [address]Dr. Felisa Trujillo AST [Catalytic activity/Vol] 24 U/L Normal 15-37 [facility] Comment on above: Performed By: #### H STROPN, CMP, BNP ####[facility] [address] [place] [address]Dr. Felisa Trujillo Bilirubin [Mass/Vol] 0.6 mg/dL Normal 0.2-1.0 [facility] Comment on above: Performed By: #### H STROPN, CMP, BNP ####[facility] [address] [place] [address]Dr. Felisa Trujillo Calcium [Mass/Vol] 8.8 mg/dL Normal 8.5-10.1 [facility] Comment on above: Performed By: #### H STROPN, CMP, BNP ####[facility] [address] [place] [address]Dr. Felisa Trujillo Chloride [Moles/Vol] 103 mmol/L Normal 98-107 [facility] Comment on above: Performed By: #### H STROPN, CMP, BNP ####[facility] [address] [place] [address]Dr. Felisa Trujillo CO2 [Moles/Vol] 25.3 mmol/L Normal 21.0-32.[address] [facility] Comment on above: Performed By: #### H STROPN, CMP, BNP ####[facility] [address] [place], [place] [address]Dr. Felisa Trujillo Creatinine [Mass/Vol] 0.86 mg/dL Normal 0.55-1.02 [facility] Comment on above: Performed By: #### H STROPN, CMP, BNP ####[facility] [address] [place], [place] [address]Dr. Felisa Trujillo EGFR-AF AZERBAIJANI >60 Normal >=[address] [facility] Comment on above: Performed By: #### H STROPN, CMP, BNP ####[facility] [address] [place] [address]Dr. Felisa Trujillo EGFR-NON AF AZERBAIJANI >60 Normal >=60 [facility] Comment on above: Performed By: #### H STROPN, CMP, BNP ####[facility] [address] [place] [address]Dr. Felisa Trujillo Globulin (S) [Mass/Vol] 3.6 g/dL Normal [facility] Comment on above: Performed By: #### H STROPN, CMP, BNP ####[facility] [address] [place] [address]Dr. Felisa Trujillo Glucose [Mass/Vol] 90 mg/dL Normal 74-106 [facility] Comment on above: Performed By: #### H STROPN, CMP, BNP ####[facility] [address] [place] [address]Dr. Felisa Trujillo Potassium [Moles/Vol] 3.5 mmol/L Normal 3.5-5.1 [facility] Comment on above: Performed By: #### H STROPN, CMP, BNP ####[facility] [address] [place] [address]Dr. Felisa Trujillo Protein [Mass/Vol] 7.7 g/dL Normal 6.1-8.2 [facility] Comment on above: Performed By: #### H STROPN, CMP, BNP ####[facility] [address] [place] [address]Dr. Felisa Trujillo Sodium [Moles/Vol] 139 mmol/L Normal 136-145 [facility] Comment on above: Performed By: #### H STROPN, CMP, BNP ####[facility] [address] [place] [address]Dr. Felisa Trujillo Urea nitrogen [Mass/Vol] 13.0 mg/dL Normal 7.0-18.0 [facility] Comment on above: Performed By: #### H STROPN, CMP, BNP ####[facility] [address] [place] [address]Dr. Felisa Trujillo Urea nitrogen/Creatinine [Mass ratio] 15.1 mg/mg Normal [facility] Comment on above: Performed By: #### H STROPN, CMP, BNP ####[facility] [address] [place] [address]DrMichelle Trujillo PROTIMEon 11-02-2021 INR Coag (PPP) [Relative time] 0.99 {INR} Normal [facility] Comment on above: Performed By: #### P TT, PT #### [facility] [address] [address] [address] Felisa Trujillo INR GUIDELINES SEE BELOW Normal [facility] Comment on above: Result Comment: KAY RED INR: 2.0 - 3.0 CONDITIONS NOT LISTED BELOW 2.5 - 3.5 FOR PROSTHETIC HEART VALVE REPLACEMENT 2.5 - 3.5 RECURRENT THROMBOSIS Performed By: #### P TT, PT #### [facility] [address] [place] [address] Dr. Felisa Trujillo PT Coag (PPP) [Time] 10.7 s Normal 9.0-11.6 [facility] Comment on above: Performed By: #### P TT, PT #### [facility] [address] [address] [address] Felisa Trujillo PTTon 11-02-2021 aPTT Coag (Bld) [Time] 25.9 s Normal 22.3-36.2 [facility] Comment on above: Performed By: #### P TT, PT #### [facility] [address] [place] [address] Dr. Felisa Trujillo TROPONIN, HIGH SENSITIVITYon 11-02-2021 HSTROP 8.7 pg/mL Normal 4.0-51.3 [facility] Comment on above: Result Comment: CUT- OFF POINTS HAVE BEEN ESTABLISHED BASED ON THE FOURTH UNIVERSAL DEFINITIONS OF MYOCARDIAL INFARCTION. THE UPPER REFERENCE LIMIT (URL) OF TROPONIN, DEFINED THE 99TH PERCENTILE OF cTnI DISTRIBUTION IN A REFERENCE POPULATION, HAS BEEN CONFIRMED THE DECISION THRESHOLD FOR [place] DIAGNOSIS. Performed By: #### H STROPN, CMP, BNP #### [facility] [address] [place] [address] Dr. Felisa Trujillo Covid-19 PCR (CVDTBH)on SARS-CoV-2 (COVID-19) RNA DUGLAS+probe Ql (Unsp spec) Not detected Normal NOT DETECTED [facility] Comment on above: Result Comment: This test is not yet approved or cleared by the [place] FDA. When there are no FDA-approved or cleared tests available, and other criteria are met, FDA can make tests available under an emergency access mechanism called an Emergency Use Authorization (EUA). The EUA for this test is supported by the [employer] of Health and Human Service's (HHS's) declaration [...] consistent with SARS-CoV-2. Performed By: #### [facility] #### [facility] [address] [address] [address] Felisa Trujillo XR CHEST 2 Von [...] by: MEHNAZ SANTIAGO Date: 2021-09-02 14:39 Normal [facility] - AP Resultson 9 Lab - AP Results [id number]#1.00OT GTIFF Normal [facility] Pathology Sendout Teston Pathology Send Out. See Report Normal [facility] Comment on above: Order Comment: left ring finger , cyst tendon sheath Performed By: #### 2 [id number] ####[facility] (DEFAULT)[address] [place] [address] Coding Summaryon 02-08-2019 Coding Summary CODING DATE: 019 [facility] STATUS: Home PAYOR: Medicare MC APC DESCRIPTION 5112 Level 2 Musculoskeletal Procedures ADMIT DX: REASON FOR VISIT DX: M65.342 Trigger finger, left ring finger FINAL DX: PRINCIPAL: M65.342 Trigger finger, left ring finger SECONDARY: M67.442 Ganglion, left hand J44.9 Chronic obstructive pulmonary disease, unspecified PYMT PROC APC STAT DESCRIPTION DOCTOR NAME DATE 72741 5112 J1 Excision of lesion of Daquan [...] Cassy Bradley Date Saved: 02/08/2019 11:52 am [facility] Consent Formson 02-05-2019 Consent Forms [id number]#1.00OT [facility] Discharge Instructionson Discharge Instructions [id number]#1.00OT [facility] History and Physicalon 02-05 History and Physical [id number]#1.00OT [facility] MAGR Intraoperative Recordon 02-05-2019 MAGR Intraoperative Record MAGR Intra-Op Record Summary Primary Physician: Daquan Antunez DO Finalized Date/Time: 02/05/19 07:41:01 Pt. Name: SHEY BOSS/Sex: 1950 FEMALE Med Rec #: [id number] Physician: Daquan Antunez DO Financial #: [id number] Pt. Type: D Room/Bed: / Admit/Disch: 02/04/19 [...] Role Performed Surgeon - Primary Anesthesiologist of Assembly Line Inspector Record Time In 02/04/19 15:31:00 02/04/19 15:31:00 02/04/19 15:31:00 Time Out 02/04/19 16:08:00 02/04/19 16:08:00 02/04/19 16:08:00 Procedure Trigger Finger Release Trigger Finger Release Trigger Finger Release Last Modified By: Toshia Plascencia RN, Barbara RN Long, Barbara RN 02/04/19 16:16:05 02/04/19 16:16:05 02/04/19 16:16:05 Entry 4 Entry 5 Case Attendee Paloma Esparza Regina CST Role Performed Scrub Personnel Blow Mold Machine Operator Time In 02/04/19 15:31:00 02/04/19 15:31:00 Time [...] Modify Pick List 02/05/19 07:40 MHBLONG Modify [place] List [facility] Medication Managementon 01-09 Medication Management [id number]#1.00OT [facility] Provider Orderson 02-05-2019 Provider Orders [id number]#1.00OT [facility] Anesthesia Noteon 02-04-2019 Anesthesia Note Patient: SHEY [...] Problems Chronic back pain / SNOMED CT 354932408 / Confirmed Former smoker / SNOMED CT 88805470 / Confirmed GERD (gastroesophageal reflux disease) / SNOMED CT 319526730 / Confirmed Scar tissue / SNOMED CT 758473671 / Confirmed Sleep apnea / SNOMED CT 234762703 / Confirmed Histories Family History: No family history items have been selected or recorded. Procedure history: Tonsillectomy (078578267). Epidural injection of lumbar spine using fluoroscopic guidance (2348373938). Social History Alcohol Assessment Use: Current. Beer, [...] rhythm. Review / Management Laboratory Results Plan [place] [employer]#(ASA) physical status classification: Class [...] on: 02/04/2019 15:44 EDT] Alirio Mcclellan MD [facility] Inpatient Patient Summaryon 02-04-2019 [place] [address] Patient Discharge Instructions Name: SHEY BOSS : 52 Patient Address: [address] [place] [address] Primary Care Provider: Name: LATRELL JACK After you are discharged if you find you have any questions, please, call [phone] ext [phone] to speak to a nurse. Discharge Diagnosis: Trigger finger Prescription Information: If you have been given a prescription for narcotics, seek immediate medical attention if you have any difficulty breathing or any sudden status changes such as confusion and sleepiness. If you or anyone you know is experiencing suicidal thoughts, mental health, alcohol and/or drug addiction problems; contact the [facility] 30/01 Crisis Hotline -Text 4HZWA to 740071. If you received any narcotics, sedation, or [...] business decisions or sign any legal documents [facility] would like to thank you for allowing us to assist you with your healthcare needs. The following includes patient education materials and information regarding your injury/illness. SHEY BOSS has been given the following list of follow-up instructions, prescriptions, and patient education materials: Follow-up Instructions With: Address: When: Daquan Antunez [address], [address] [place] [address] Business (2) 02/12/2019 2:00 PM With: Address: When: LATRELL JACK [address] [place], [place] [id number] [facility] (1) Medications During the course of your [...] awake -DO NOT lift heavy objects or envelope press operator forcefully with the affected hand -DO NOT [...] or concerns, please call the office at [phone] or go to the emergency room -Follow [...] for Disease Control and Prevention March 2014 [facility]2019 [facility] Postoperative Record [facility] Phase II Record Summary Primary Physician: Daquan Antunez DO Finalized Date/Time: 02/04/19 17:11:50 Pt. Name: SHEY BOSS/Sex: 1950 FEMALE Med Rec #: [id number] Physician: Daquan Antunez DO Financial #: [id number] Pt. Type: D Room/Bed: / Admit/Disch: 02/04/19 [...] Signed By: Stefanie Garibay RN 02/04/19 17:11 [facility] Preoperative Recordon 0 02-04-2019 [facility] Preoperative Record [facility] Pre-Op Record Summary Primary Physician: Daquan Antunez DO Finalized Date/Time: 02/04/19 15:37:19 Pt. Name: SHEY BOSS NORMAN /Sex: 1950 FEMALE Med Rec #: [id number] Physician: Daquan Antunez DO Financial #: [id number] Pt. Type: D Room/Bed: / Admit/Disch: 02/04/19 [...] By: Toshia Plascencia RN 02/04/19 15:37 Normal [facility] Operative Report - Surgeon/P ilyakasey 02-04-2019 Operative Report - Surgeon/Physician Procedure: Release of trigger finger left ring finger Excision of cyst left ring finger Pre Op Diagnosis: Trigger finger left ring finger Cyst left ring finger Post Op Dianosis: Same Surgeon: Dr. Rentao Antunez DO Anesthesia: Conscious sedation with local [...] on: 02/04/2019 16:37 EDT] Daquan Antunez DO [facility] Patient Handouton 02-04-[address] OHARA POST OPERATIVE INSTRUCTIONS FOR FINGER SURGERY/MALLET FINGER REPAIR SURGEONS WRITTEN INSTRUTCTIONS:' -Keep your hand elevated above your elbow for the first 24 hours after surgery and apply an ice bag at intervals for the first 24 hours -Wiggle the unaffected fingers frequently while awake -DO NOT lift heavy objects or envelope press operator forcefully with the affected hand -DO NOT [...] or concerns, please call the office at [phone] or go to the emergency room -Follow up as scheduled [facility] Progress Note - Nurseon 01-08 Progress Note - Nurse Spoke with pt regarding arrival time of 1145 and NPO status. Verbalized understanding. Pt instructed she will need a motor pool driver. Verbalized understanding. [Electronically Signed on: 02/01/2019 14:53 EDT] Kika Akers RN [Verified on: 02/01/2019 14:53 EDT] Kika Akers RN [facility] Coding Summaryon 01-29-2019 Coding Summary CODING DATE: 019 [facility] STATUS: Home PAYOR: Medicare MC APC [...] Cueto Date Saved: 01/29/2019 01:42 pm Normal [facility] .Auto Diff 1on 01-28-2019 Auto Weber % 8 % Normal 1-12 [facility] Comment on above: Performed By: #### 7 [id number], [id number] #### [facility] (DEFAULT) [address] [place] [address] Baso Abs# 0.0 x10 Normal 0.0-0.2 [facility] Comment on above: Performed By: #### 7 [id number], [id number] #### [facility] (DEFAULT) [address] [place] [address] 44587 Basophils/100 WBC (Bld) 0.4 % Normal 0.2-2.0 [facility] Comment on above: Performed By: #### 7 [id number], [id number] #### [facility] (DEFAULT) [address] [place] [address] 87036 Eos Abs# 0.2 x10 Normal 0.0-0.4 [facility] Comment on above: Performed By: #### 7 [id number], [id number] #### [facility] (DEFAULT) [address] [place] [address] 96068 Eosinophils/100 WBC (Bld) 3.5 % Normal 0.9-4.0 [facility] Comment on above: Performed By: #### 7 [id number], [id number] #### [facility] (DEFAULT) [address] [place] [address] 53981 Lymphocytes (Bld) [#/Vol] 1.6 x10 Normal 1.3-2.9 [facility] Comment on above: Performed By: #### 7 [id number], [id number] #### [facility] (DEFAULT) [address] [place] [address] 77632 Lymphocytes/100 WBC (Bld) 32 % Normal 14-48 [facility] Comment on above: Performed By: #### 7 [id number], [id number] #### [facility] (DEFAULT) [address] [place] [address] 60419 Weber Abs# 0.4 x10 Normal 0.0-0.8 [facility] Comment on above: Performed By: #### 7 [id number], [id number] #### [facility] (DEFAULT) [address] [place] [address] 26203 Neut Abs# 2.8 x10 Normal 1.5-9.2 [facility] Comment on above: Performed By: #### 7 [id number], [id number] #### [facility] (DEFAULT) [address] [place] [address] Neutrophils/100 WBC (Bld) 56 % Normal 44-88 [facility] Comment on above: Performed By: #### 7 [id number], [id number] #### [facility] (DEFAULT) [address] [place] [address] CBC w/ Auto Diffon 9 Erythrocyte distribution width (RBC) [Ratio] 13.4 % Normal 11.5-15.0 [facility] Comment on above: Performed By: #### 7 [id number], [id number] #### [facility] (DEFAULT) [address] [place] [address] Hematocrit (Bld) [Volume fraction] 40.4 % Normal 33.7-40.4 [facility] Comment on above: Performed By: #### 7 [id number], [id number] #### [facility] (DEFAULT) [address] [place] [address] Hemoglobin (Bld) [Mass/Vol] 13.9 g/dL Normal 11.3-15.9 [facility] Comment on above: Performed By: #### 7 [id number], [id number] #### [facility] (DEFAULT) [address] [place] [address] Man Diff? Auto Normal [facility] Comment on above: Performed By: #### 7 [id number], [id number] #### [facility] (DEFAULT) [address] [place] [address] MCH (RBC) [Entitic mass] 31 pg Normal 24-34 [facility] Comment on above: Performed By: #### 7 [id number], [id number] #### [facility] (DEFAULT) [address] [place] [address] 32599 MCHC (RBC) [Mass/Vol] 34 g/dL Normal 26-37 [facility] Comment on above: Performed By: #### 7 [id number], [id number] #### [facility] (DEFAULT) [address] [place] [address] MCV (RBC) [Entitic vol] 90 fL Normal 81-100 [facility] Comment on above: Performed By: #### 7 [id number], [id number] #### [facility] (DEFAULT) [address] [place] [address] Platelet mean volume (Bld) [Entitic vol] 10.3 fL High 6.3-10.2 [facility] Comment on above: Performed By: #### 7 [id number], [id number] #### [facility] (DEFAULT) [address] [place] [address] Platelets (Bld) [#/Vol] 199 x10 Normal 138-427 [facility] Comment on above: Performed By: #### 7 [id number], [id number] #### [facility] (DEFAULT) [address] [place] [address] RBC (Bld) [#/Vol] 4.47 x10 Normal 3.70-5.30 [facility] Comment on above: Performed By: #### 7 [id number], [id number] #### [facility] (DEFAULT) [address] [place] [address] WBC (Bld) [#/Vol] 5.1 x10 Normal 3.5-10.5 [facility] Comment on above: Performed By: #### 7 [id number], [id number] #### [facility] (DEFAULT) [address] [place] [address] Vital Signs Date Time Vital Sign Value Performing Clinician Facility 05-15-2024 10:02-0500 Body height 160 cm Latrell Jack MD Work Phone: [facility] 05-15-2024 10:02-0500 Body mass index (BMI) [Ratio] 38.26 kg/m2 Latrell Jack MD Work Phone: [facility] 05-15-2024 10:02-0500 Body temperature 97.11 [degF] Latrell Jack MD Work Phone: [facility] 05-15-2024 10:02-0500 Body weight 97.98 kg Latrell Jack MD Work Phone: [facility] 05-15-2024 10:02-0500 Diastolic blood pressure 80 mm[Hg] Latrell Jack MD Work Phone: [facility] 05-15-2024 10:02-0500 Heart rate 78 /min Latrell Jack MD Work Phone: [facility] 05-15-2024 10:02-0500 Respiratory rate 22 /min Latrell Jack MD Work Phone: [facility] 05-15-2024 10:02-0500 SaO2% (BldA) [Mass fraction] 97 % Latrell Jack MD Work Phone: [facility] 05-15-2024 10:02-0500 Systolic blood pressure 148 mm[Hg] Latrell Jack MD Work Phone: [facility] 04-29-2024 10:55-0400 Body height 152.4 cm Xavier Boyd MD Work Phone: [facility] 04-29-2024 10:55-0400 Body mass index (BMI) [Ratio] 42.58 kg/m2 Xavier Boyd MD Work Phone: [facility] 04-29-2024 10:55-0400 Body temperature 98.49 [degF] Xavier Boyd MD Work Phone: [facility] 04-29-2024 10:55-0400 Body weight 98.88 kg Xavier Boyd MD Work Phone: [facility] 04-29-2024 10:55-0400 Diastolic blood pressure 65 mm[Hg] Xavier Boyd MD Work Phone: [facility] 04-29-2024 10:55-0400 Heart rate 90 /min Xavier oByd MD Work Phone: [facility] 04-29-2024 10:55-0400 Systolic blood pressure 144 mm[Hg] Xavier Boyd MD Work Phone: [facility] 03-20-2024 13:23-0400 Diastolic blood pressure 81 mm[Hg] Leos Sarmini [facility] 03-20-2024 13:23-0400 Heart rate 66 /min Leos Sarmini [facility] 03-20-2024 13:23-0400 Mean blood pressure 112 mm[Hg] Leos Sarmini [facility] 03-20-2024 13:23-0400 Respiratory rate 15 /min Leos Sarmini [facility] 03-20-2024 13:23-0400 SaO2% (BldA) [Mass fraction] 94 % Leos Sarmini [facility] 03-20-2024 13:23-0400 Systolic blood pressure 173 mm[Hg] Leos Sarmini [facility] 03-20-2024 13:15-0400 Diastolic blood pressure 78 mm[Hg] Leos Sarmini [facility] 03-20-2024 13:15-0400 Heart rate 64 /min Leos Sarmini [facility] 03-20-2024 13:15-0400 Mean blood pressure 105 mm[Hg] Leos Sarmini [facility] 03-20-2024 13:15-0400 Respiratory rate 13 /min Leos Sarmini [facility] 03-20-2024 13:15-0400 SaO2% (BldA) [Mass fraction] 96 % Leos Sarmini [facility] 03-20-2024 13:15-0400 Systolic blood pressure 159 mm[Hg] Leos Sarmini [facility] 03-20-2024 13:05-0400 Diastolic blood pressure 76 mm[Hg] Leos Sarmini [facility] 03-20-2024 13:05-0400 Heart rate 64 /min Leos Sarmini [facility] 03-20-2024 13:05-0400 Mean blood pressure 99 mm[Hg] Leos Sarmini [facility] 03-20-2024 13:05-0400 Respiratory rate 12 /min Leos Sarmini [facility] 03-20-2024 13:05-0400 SaO2% (BldA) [Mass fraction] 96 % Leos Sarmini [facility] 03-20-2024 13:05-0400 Systolic blood pressure 145 mm[Hg] Leos Sarmini [facility] 03-20-2024 12:58-0400 Body temperature 97.16 [degF] Leos Sarmini [facility] 03-20-2024 12:50-0400 Respiratory rate 15 /min Leos Sarmini [facility] 03-20-2024 12:45-0400 Respiratory rate 18 /min Leos Sarmini [facility] 03-20-2024 11:14-0400 Blood Pressure Location Leos Sarmini [facility] 03-20-2024 11:14-0400 Body temperature 97.7 [degF] Leos Sarmini [facility] 03-20-2024 11:14-0400 Respiratory rate 18 /min Leos Sarmini [facility] 02-26-2024 09:12-0400 Blood Pressure Location Leos Sarmini [facility] 02-26-2024 09:12-0400 Diastolic blood pressure 81 mm[Hg] Leos Sarmini [facility] 02-26-2024 09:12-0400 Heart rate 66 /min Leos Sarmini [facility] 02-26-2024 09:12-0400 Respiratory rate 16 /min Leos Sarmini [facility] 02-26-2024 09:12-0400 Systolic blood pressure 131 mm[Hg] Leos Sarmini [facility] 10-13-2023 09:42-0400 Diastolic blood pressure 80 mm[Hg] Pa NILL [facility] 10-13-2023 09:42-0400 Heart rate 69 /min Pa NILL [facility] 10-13-2023 09:42-0400 Mean blood pressure 102 mm[Hg] Pa NILL [facility] 10-13-2023 09:42-0400 Respiratory rate 15 /min Pa NILL [facility] 10-13-2023 09:42-0400 SaO2% (BldA) [Mass fraction] 97 % Pa NILL [facility] 10-13-2023 09:42-0400 Systolic blood pressure 146 mm[Hg] Pa NILL [facility] 10-13-2023 09:32-0400 Diastolic blood pressure 76 mm[Hg] Pa NILL [facility] 10-13-2023 09:32-0400 Heart rate 67 /min Pa NILL [facility] 10-13-2023 09:32-0400 Mean blood pressure 94 mm[Hg] Pa NILL [facility] 10-13-2023 09:32-0400 Respiratory rate 20 /min Pa NILL [facility] 10-13-2023 09:32-0400 SaO2% (BldA) [Mass fraction] 95 % Pa NILL [facility] 10-13-2023 09:32-0400 Systolic blood pressure 129 mm[Hg] Pa NILL [facility] 10-13-2023 09:27-0400 Diastolic blood pressure 71 mm[Hg] Pa NILL [facility] 10-13-2023 09:27-0400 Heart rate 70 /min Pa NILL [facility] 10-13-2023 09:27-0400 Mean blood pressure 92 mm[Hg] Pa NILL [facility] 10-13-2023 09:27-0400 Respiratory rate 15 /min Pa NILL [facility] 10-13-2023 09:27-0400 SaO2% (BldA) [Mass fraction] 96 % Pa WEBB [facility] 10-13-2023 09:27-0400 Systolic blood pressure 134 mm[Hg] Pa WEBB [facility] 10-13-2023 09:17-0400 Body temperature 97.16 [degF] Pa PALMERL [facility] 10-13-2023 09:10-0400 Respiratory rate 16 /min Pa WEBB [facility] 10-13-2023 09:05-0400 Respiratory rate 16 /min Pa WEBB [facility] 10-13-2023 08:03-0400 Body temperature 97.34 [degF] Pa WEBB [facility] 08-11-2023 09:53-0500 Body height 160 cm Latrell Jack MD Work Phone: [facility] 08-11-2023 09:53-0500 Body mass index (BMI) [Ratio] 40.39 kg/m2 Latrell Jack MD Work Phone: [facility] 08-11-2023 09:53-0500 Body temperature 97.11 [degF] Latrell Jack MD Work Phone: [facility] 08-11-2023 09:53-0500 Body weight 103.42 kg Latrell Jack MD Work Phone: [facility] 08-11-2023 09:53-0500 Diastolic blood pressure 70 mm[Hg] Latrell Jack MD Work Phone: [facility] 08-11-2023 09:53-0500 Heart rate 94 /min Latrell Jack MD Work Phone: [facility] 08-11-2023 09:53-0500 SaO2% (BldA) [Mass fraction] 97 % Latrell Jack MD Work Phone: [facility] 08-11-2023 09:53-0500 Systolic blood pressure 140 mm[Hg] Latrell Jack MD Work Phone: [facility] Encounters Encounter Date Encounter Type Care Provider Facility Start: 05-30-2024 End: 05-30-2024 ambulatory SANDRA ARCOS Not Available Start: 05-30-2024 End: 05-30-2024 Bamboo flowsheet Sandra Arcos FITTER TYPE BAR AND SEGMENT Work Phone: [facility] Start: 05-30-2024 End: 05-30-2024 Bamboo flowsheet Sandra Arcos FITTER TYPE BAR [employer] SEGMENT Work Phone: [facility] Start: 05-27-2024 End: 05-27-2024 ambulatory Talat Arguello MD Facility:[facility] Start: 05-15-2024 End: 05-15-2024 Office outpatient visit 25 minutes Latrell Jack MD Work Phone: [facility] Comment on above: Essential hypertensi [...] 05-06-2024 End: 05-06-2024 ambulatory Talat Arguello MD Facility:[facility] Start: 05-04-2024 End: 05-06-2024 ambulatory Xavier Boyd MD Work Phone: [facility] Comment on above: 07.24.24 Cure (Lap P araesophageal Hernia Repair/EGD 4 hours los 1) Start: 05-04-2024 End: 05-06-2024 Preprocedural examination done Xavier Boyd MD Work Phone: [facility] Start: 04-29-2024 End: 04-29-2024 ambulatory XAVIER BOYD Facility:[facility] Start: 04-29-2024 End: 04-29-2024 Office outpatient new 45 minutes Xavier Boyd MD Work Phone: General Surgery Comment on above: Paraesophageal herni a (Primary Dx) Start: 04-22-2024 End: 04-22-2024 Telephone encounter Ashlie Calderon OZZY General Surgery Start: 04-15-2024 End: 04-15-2024 ambulatory Talat Arguello MD Facility:[facility] Start: 04-11-2024 End: 04-11-2024 Patient encounter procedure Mao Morrow PhD Work Phone: [facility] Comment on above: Memory loss (Primary Dx); Word finding difficulty; EDWIN on CPAP; Other insomnia; Other chronic pain; Generalized anxiety disorder (CMS/HCC); Severe episode of recurrent major depressive disorder, 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) Start: 04-11-2024 End: 04-11-2024 ambulatory SANDRA ARCOS Not Available Start: 03-26-2024 End: 03-26-2024 ambulatory MAO MORROW Not Available Start: 03-26-2024 End: 03-26-2024 ambulatory Leos Talal Sarmini Facility:[facility] Start: 03-25-2024 End: 03-25-2024 ambulatory DIOMEEDS MATUTE Not Available Start: 03-20-2024 End: 03-20-2024 ambulatory Leos Talal Sarmini Facility:[facility] Start: 03-20-2024 End: 03-20-2024 Patient encounter procedure Leos Talal Sarmini [facility] Start: 03-07-2024 End: 03-07-2024 ambulatory DIOMEDES MATUTE Not Available Start: 02-26-2024 End: 02-26-2024 ambulatory Leos Talal Sarmini Facility:[facility] Start: 02-26-2024 End: 02-26-2024 Patient encounter procedure Katie Hairston [facility] Start: 02-13-2024 ambulatory [facility] NILL [facility] Start: 02-09-2024 End: 02-09-2024 ambulatory LATRELL JACK Not Available Start: 10-13-2023 End: 10-13-2023 ambulatory Pa R NILL Facility:[facility] Start: 10-13-2023 End: 10-13-2023 Patient encounter procedure Pa R NILL [facility] Start: 09-12-2023 End: 09-12-2023 ambulatory [...] Facility:[facility] Start: 02-22-2022 End: 02-22-[address] SHANAKR DANIEL Facility:[facility] Start: 11-11-2021 End: 11-12-[address] LATRELL JACK Facility:[facility] Start: 11-02-2021 End: 11-02-[address] SHANKAR DANIEL Facility:[facility] Start: 09-10-2021 End: 09-10-[address] WILLARD ANAND Facility:[facility] Start: 09-09-2021 Encounter for prepro cedural laboratory examination [facility] Start: 09-07-2021 End: 09-07-[address] LATRELL JACK Facility:[facility] Start: 09-07-2021 End: 09-07-2021 Encounter for preprocedural laboratory examination DR LATRELL JACK Facility:[facility] Start: 09-03-2021 Encounter for prepro cedural cardiovascular examination [facility] Start: 09-02-2021 End: 09-03-[address] [...] Screening for malign ant neoplasm of colon [facility] Start: 09-21-2026 RSV Vaccine (1 - 1-d ose 75+ series) RSV Vaccine (1 - 1-dose 75+ series) [facility] Start: 11-27-2024 Screening for malign ant neoplasm of breast Mammogram [facility] Start: 08-16-2024 End: 08-16-2024 Patient encounter procedure 08/16/2024 9:00 AM EST Office Visit [facility] [address] [place] [address] Latrell Jack MD [address] [place] [address] [facility] Start: 07-24-2024 Subsequent hospital visit by physician 07/24/2024 Hospital Encounter Admitting [address] [place] [address] Xavier Boyd MD [address], [place] [id number] Preoperative examination [Z01.818], Paraesophageal hernia [K44.9] Admitting Comment on above: Preoperative examina tion [Z01.818], Paraesophageal hernia [K44.9] Start: 06-29-2024 End: 10-29-2024 aPTT in Platelet poor plasma by Coagulation assay ACTIVATED PARTIAL THROMBOPLASTIN TIME Lab Routine Preoperative examination Paraesophageal hernia Abnormal coagulation profile Expected: 06/29/2024, Expires: 10/29/2024 [facility] Comment on above: Expected: 06/29/2024 , Expires: 10/29/2024 Start: 06-29-2024 End: 10-29-2024 CBC W Auto Differential panel - Blood COMPLETE BLOOD COUNT AND DIFFERENTIAL Lab Routine Preoperative examination Paraesophageal hernia Expected: 06/29/2024, Expires: 10/29/2024 [facility] Comment on above: Expected: 06/29/2024 , Expires: 10/29/2024 Start: 06-29-2024 End: 10-29-2024 Comprehensive metabolic 2000 panel - Serum or Plasma COMPREHENSIVE METABOLIC PANEL Lab Routine Preoperative examination Paraesophageal hernia Expected: 06/29/2024, Expires: 10/29/2024 [facility] Comment on above: Expected: 06/29/2024 , Expires: 10/29/2024 Start: 06-29-2024 End: 10-29-2024 PT panel - Platelet poor plasma by Coagulation assay PROTHROMBIN TIME Lab Routine Preoperative examination Paraesophageal hernia Abnormal results of liver function studies Expected: 06/29/2024, Expires: 10/29/2024 [facility] Comment on above: Expected: 06/29/2024 , Expires: 10/29/2024 Start: 06-29-2024 End: 10-29-2024 TYPE AND SCREEN,30 DAY TYPE AND SCREEN,30 DAY Blood Bank Routine Preoperative examination Paraesophageal hernia Expected: 06/29/2024, Expires: 10/29/2024 [facility] Comment on above: Expected: 06/29/2024 , Expires: 10/29/2024 Start: 05-30-2024 End: 05-30-2024 Patient encounter procedure [facility] Comment on above: Arrived Start: 05-15-2024 End: 05-15-2024 Patient encounter procedure 05/15/2024 10:00 AM EST Office Visit [facility] [address] [place] [address] Latrell Jack MD [address] [place] [address] [facility] Start: 04-29-2024 End: 04-29-2024 Patient encounter procedure 04/29/2024 11:00 AM EDT Office Visit General Surgery [address] [address] Xavier Boyd MD [address] [place] [address] Hiatal Hernia General Surgery Comment on above: Hiatal Hernia Start: 03-10-2024 Covid-19 Vaccine () Covid-19 Vaccine () [facility] Start: 03-10-2024 Covid-19 Vaccine (6 - 2024-25 season) Covid-19 Vaccine ( season) [facility] Start: 03-10-2024 Influenza vaccination Influenza Vacc ine (#1) [facility] Start: 02-09-2024 End: 02-09-2024 Patient encounter procedure 02/09/2024 9:45 AM EDT Office Visit [place] [facility] [address] [place] [address] Latrell Jack MD [address] [place] [address] [facility] Start: 08-11-2023 End: 08-11-2024 Basic metabolic 1998 panel - Serum or Plasma Basic metabolic panel Lab Routine Encounter for long-term (current) use of medications Expected: 08/11/2023 (Approximate), Expires: 08/11/2024 [facility] Comment on above: Expected: 08/11/2023 (Approximate), Expires: 08/11/2024 Start: 08-11-2023 End: 08-11-2024 CBC W Auto Differential panel - Blood CBC and differential Lab Routine Encounter for long-term (current) use of medications Expected: 08/11/2023 (Approximate), Expires: 08/11/2024 [facility] Comment on above: Expected: 08/11/2023 (Approximate), Expires: 08/11/2024 Start: 08-11-2023 End: 08-11-2024 Hemoglobin A1c measurement Hemoglobin A1c Lab Routine Morbid obesity due to excess calories (CMS/HCC) Expected: 08/11/2023 (Approximate), Expires: 08/11/2024 [facility] Work Phone: Comment on above: Expected: 08/11/2023 (Approximate), Expires: 08/11/2024 Start: 08-11-2023 End: 08-11-2024 Hepatic function 2000 panel - Serum or Plasma Hepatic function panel Lab Routine Encounter for long-term (current) use of medications Expected: 08/11/2023 (Approximate), Expires: 08/11/2024 [facility] Comment on above: Expected: 08/11/2023 (Approximate), Expires: 08/11/2024 Start: 08-11-2023 End: 08-11-2024 Lipid 1996 panel - Serum or Plasma Lipid panel Lab Routine Dyslipidemia ([facility]/HCC) Expected: 08/11/2023 (Approximate), Expires: 08/11/2024 [facility] Comment on above: Expected: 08/11/2023 (Approximate), Expires: 08/11/2024 Start: 08-11-2023 End: 08-11-2024 Thyrotropin [Units/volume] in Serum or Plasma TSH Lab Routine Morbid obesity due to excess calories ([facility]/HCC) Expected: 08/11/2023 (Approximate), Expires: 08/11/2024 [facility] Comment on above: Expected: 08/11/2023 (Approximate), Expires: 08/11/2024 Start: 08-11-2023 End: 08-11-2023 Patient encounter procedure 08/11/2023 9:45 AM EST Office Visit [facility] [address] [place] [address] Latrell Jack MD [address] [place] [address] Arrived [facility] Comment on above: Arrived Start: 07-10-2023 Advance Directive Discussion Advance Directive Discussion [facility] Start: 03-10-2023 Influenza vaccination Influenza Vacc ine (#1) [facility] Start: 09-21-2016 Screening for osteoporosis Bone Density Screening [facility] Start: 09-21-2001 Shingrix Vaccine (1 of 2) Shingrix Vaccine (1 of 2) [facility] Start: 09-21-1996 Diabetes Screening Diabetes Screenin g [facility] Start: 09-21-1996 Lipid panel Lipid Screening [facility] Start: 09-21-1996 Screening for malign ant neoplasm of colon [facility] Start: 1991 Screening for malign ant neoplasm of breast [facility] Start: 09-21-1970 Urine microalbumin profile DTaP,Tdap,Td Vaccine (1 - Tdap) [facility] Start: 09-21-1969 Anxiety Screening Anxiety Screening [facility] Start: 09-21-1969 Depression Screening Depression Scre ening [facility] Start: 09-21-1969 Hepatitis C screening Hepatitis C Sc swathi [facility] Start: 1950 Screening for malign ant neoplasm of colon [facility] End: 05-04-2025 ECG COMPLETE ECG COMPLETE ECG Routine Preoperative examination Paraesophageal hernia 1 Occurrences starting 05/06/2024 until 05/04/2025 [facility] Comment on above: 1 Occurrences starti ng 05/06/2024 until 05/04/2025 Laps rpr paraesphgl hrna incl fundplsty w/mesh LAPAROSCOPIC RPR PARAESOPHAGEAL HERNIA W/O FUNDOPLASTY W/ MESH Preoperative examination Paraesophageal hernia [facility] REFER FOR ADMIT INTERVIEW REFER FOR ADMIT INTERVIEW Procedures Routine Preoperative examination Paraesophageal hernia Ordered: 05/06/2024 [facility] Work Phone: Comment on above: Ordered: 05/06/2024 Immunizations Immunization Date Immunization Notes Care Provider Fa cility 04-09-2023 influenza virus vacc ine, unspecified formulation Pa WEBB [facility] 05-03-2022 SARS-CoV-2 (COVID-19 ) [id number] Pa WEBB [facility] 05-03-2022 influenza virus vacc ine, unspecified formulation Latrell Jack MD Work Phone: [facility] 11-25-2021 pneumococcal conjuga te vaccine, 13 valent Mao Morrow PhD Work Phone: [facility] 04-12-2021 influenza virus vacc ine, unspecified formulation Katie Hairston [facility] 04-12-2021 SARS-CoV-2 (COVID-19 ) mRNA BNT-162b2 vax Pa WEBB [facility] Comment on above: Result Comment: 2023: [id number] 09-14-2020 SARS-CoV-2 (COVID-19 ) mRNA BNT-162b2 vax Pa [employer] [facility] [place] Comment on above: Result Comment: 2023: [id number] 08-27-2020 SARS-CoV-2 (COVID-19 ) mRNA BNT-162b2 vax [employer] [facility] Comment on above: Result Comment: 2023: [id number] 06-16-2020 influenza virus vacc ine, unspecified formulation Leos Sarmini [facility] 05-16-2019 influenza virus vacc ine, unspecified formulation Leos Sarmini [facility] 05-16-2019 pneumococcal polysaccharide vaccine, 23 valent Leos Sarmini [facility] 05-12-2018 influenza virus vacc ine, unspecified formulation Leos Sarmini [facility] 01-31-2018 pneumococcal conjuga te vaccine, 13 valent Leos Sarmini [facility] 05-10-2016 influenza virus vacc ine, unspecified formulation Leos Sarmini [facility] 04-16-2015 influenza virus vacc ine, unspecified formulation Leos Sarmini [facility] Payers Date Payer Category Payer Private Health Insurance [id number] 2016 Medicare [id number] 2016 Unknown 1959 Medicare [id number] 1959 Private Health Insurance [id number] 1950 Unknown [id number] 2.16.84 0.1.648773.3.579.2.593 1950 Unknown [id number] 2.16.84 0.1.553539.3.579.2.593 1950 Unknown [id number] 2.16.84 0.1.876664.3.579.2.593 1950 Unknown [id number] 2.16.84 0.1.442829.3.579.2.593 1950 Unknown [id number] 2.16.84 0.1.385504.3.579.2.593 1950 Unknown [id number] 2.16.84 0.1.766798.3.579.2.593 1950 Unknown [id number] 2.16.84 0.1.546645.3.579.2.593 1950 Unknown [id number] 2.16.8 40.1.844099.3.579.2.727 1950 Unknown [id number] 2.16.8 40.1.126320.3.579.2.727 1950 Unknown [id number] 2.16.8 40.1.813467.3.579.2.727 1950 Unknown [id number] 2.16.8 40.1.032348.3.579.2.727 1950 Unknown [id number] 2.16.8 40.1.573397.3.579.2.727 1950 Unknown [id number] 2.16. 840.1.060609.3.579.2.196 1950 Unknown [id number] 2.16. 840.1.656086.3.579.2.196 1950 Unknown [id number] 2.16. 840.1.507716.3.579.2.196 1950 Unknown [id number] 2.16.84 0.1.872279.3.579.2.1259 1950 Unknown [id number] 2.16.84 0.1.828766.3.579.2.1259 1950 Unknown [id number] 2.16.84 0.1.245924.3.579.2.9 1950 Unknown [id number] 2.16.84 0.1.694345.3.579.2.9 1950 Unknown [id number] 2.16.84 0.1.986708.3.579.2.9 1950 Unknown [id number] 2.16.84 0.1.237258.3.579.2.9 1950 Unknown [id number] 2.16.84 0.1.529625.3.579.2.9 1950 Unknown [id number] 2.16.84 0.1.279633.3.579.2.1259 Social History Date Type Detail Facility Start: 08-05-2023 End: 03-07-2024 Tobacco smoking status NCIS Ex-smoker [facility] Start: 07-10-1967 End: 01-08-2012 History of tobacco use Current smoker [facility] Start: 07-10-1967 End: 01-08-2012 History of tobacco use Cigarette Smoker [facility] Start: 08-05-2023 End: 02-02-2024 Cigarettes smoked current (pack per day) - Reported 1 [facility] Start: 08-05-2023 End: 02-02-2024 Tobacco use panel [facility] Start: 1950 Sex Assigned At Not on file [facility] Start: 08-11-2023 End: 03-07-2024 Tobacco use and exposure Smokeless tobacco non-user [facility] Tobacco smoking status Never [facility] [place] Start: 03-07-2024 End: 05-15-2024 Alcoholic beverage intake [...] per day [facility] Tobacco smoking stat [facility] Tobacco smoking consumption unknown [facility] Start: 04-23-2024 Gender identity Identifies as female gender (finding) [facility] Functional Status Date Assessment Result Facility 03-20-2024 Functional Status N/A [facility] 02-26-2024 Functional Status N/A [facility] 10-13-2023 Functional Status N/A [facility] Clinical Notes 09-10-2021 to 05-15-2024 Latrell [...] surgery 07/24. Associated Problem(s): Essential hypertension, benign ([facility]) BP improved but still elevated and increase losartan. Continue to monitor PRN. Associated Problem(s): COPD (chronic obstructive pulmonary disease) ([facility]) Symptoms stable and continue spiriva. Use albuterol PRN. Associated Problem(s): Class 2 severe obesity due to excess calories with serious comorbidity and body mass index (BMI) of 38.0 to 38.9 in adult ([facility]) Weight loss indicated. Images from [...] Weight loss indicated. documented in this encounter [facility] 04-29-2024 Note HNO ID: [id number] Author: XAVIER BOYD MD Service: ? Author [...] blinded, parallel group trial IRB NO.: #[id number] CIGAR BRANDER: Pa Prakash MD COORDINATOR/Research Nurse/Substation Operator Helper: Abdelrahman He MD Phone/email: [phone], [email or web address] Consenting was performed in person prior [...] CRITERIA Yes No 1. The patient lacks Luxembour[place] language fluency or cannot understand the consent form/study procedures [] [x] 2. The patient is [] [x] 3. The patient has a BMI >45 [] [x] 4. The patient has undergone previous hiatal hernia repair [] [x] 5. The patient will undergo paraesophageal hernia repair with a concurrent bariatric procedure to reduce stomach volume [] [x] [facility] 04-29-2024 History of Present illness Narrative [...] blinded, parallel group trial IRB NO.: #[id number] CIGAR BRANDER: Pa Prakash MD COORDINATOR/Research Nurse/Substation Operator Helper: Abdelrahman He MD Phone/email: [phone], [email or web address] Consenting was performed in person prior [...] CRITERIA Yes No 1. The patient lacks [place]bour[place] language fluency or cannot understand the consent form/study procedures [] [x] 2. The patient is [] [x] 3. The patient has a BMI >45 [] [x] 4. The patient has undergone previous hiatal hernia repair [] [x] 5. The patient will undergo paraesophageal hernia repair with a concurrent bariatric procedure to reduce stomach volume [] [x] [facility]dominal [facility] - HISTORY AND PHYSICAL SUBJECTIVE: Chief [...] MD General Surgery documented in this encounter [facility] 04-29-2024 Note HNO ID: [id number] Author: YAN MOSER, ? Service: ? Author Type: Physician Type: Progress Notes Filed: 04/29/2024 12:10 Note Text: [facility] - HISTORY AND PHYSICAL [...] Consents obtained Yan Moser MD General Surgery [facility] 04-29-2024 Nurse Note What is the reason for your visit today? Consult Who is your referring physician? Katie Hairston Are you having poor oral intake? YES Have you had unintentional weight loss of 15 lbs/7 Kg in the last 3-6 months? NO Bowels: soft, more frequent Wound: none Temperature: No Drains: No [facility] 04-29-2024 Nurse Note What is the reason for your visit today? Consult Who is your referring physician? Katie Ameyaalberto Are you having poor oral intake? YES Have you had unintentional weight loss of 15 lbs/7 Kg in the last 3-6 months? NO Bowels: soft, more frequent Wound: none Temperature: No Drains: No documented in this encounter [facility] 04-22-2024 Telephone encounter Note Spoke with PT she state no prior surgeries [facility] 04-22-2024 Miscellaneous Notes Spoke with PT she state no prior surgeries documented in this encounter [facility] 04-11-2024 History of Present illness Narrative Images [...] No history of alcohol/substance abuse. Reformed smoker. [place] language [place]. Completed high school education as well as some college. Described self as a C student. 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 Motor/Speed of Processing: Left-handed. Facetor strength 31st %ile with left-hand, 18th %ile [...] Learning of a word list 58th %ile (3-2-35-10-12), delayed recall 50th %ile. Recognition discriminability 69th [...] Please contact me with any questions at [phone]. documented in this encounter [facility] 03-27-2024 Note Endoscopic Procedure Report - [...] 1 tab, Oral, Daily Flonase 0.05 mg/inh Moyers: 2 spray(s), Nasal, Daily, Refill(s) 0, Dry [...] a day (at bedtime) Flonase 0.05 mg/inh Moyers 2 spray(s), Nasal, Daily losartan 25 mg [...] All Problems HTN (hypertension) / SNOMED CT 4298680697 / Confirmed Chronic obstructive pulmonary disease / SNOMED CT 33396790 / Confirmed Insomnia / SNOMED CT 064985863 / Confirmed Seasonal allergic rhinitis / SNOMED CT 557373821 / Confirmed Dyslipidemia / SNOMED CT 5954723110 / Confirmed BMI 39.0-39.9,adult / SNOMED CT 352710720 / Confirmed Morbid obesity / SNOMED CT 327874873 / Confirmed GERD (gastroesophageal reflux disease) / SNOMED CT 850453199 / Confirmed Hiatal hernia / SNOMED CT 985286887 / Confirmed EDWIN (obstructive sleep apnea) / SNOMED CT 297965893 / Confirmed Lower extremity edema / SNOMED CT 908393773 / Confirmed TIA (transient ischemic attack) / SNOMED CT 121766277 / Confirmed Screening for malignant neoplasm of colon / SNOMED CT 305295540 / Confirmed Dysphagia / SNOMED CT 92905117 / Confirmed Histories Past Medical History: Resolved Hernia (767819139): Resolved. Sleep apnea (959443003): Resolved. Family History: Father Alcoholism Primary malignant neoplasm of lung COPD Mother Cardiac arrest Alzheimer's disease Procedure history: Colonoscopy (383747076) on 10/13/2023 at 73 Years. ORIF - Open reduction of fracture of ankle with internal fixation (579945014535353). Meniscal repair (706559915). Tonsillectomy (639972279). Hand tendon repaired (741872830). Social History Social & Psychosocial Habits Alcohol [...] Impression and Plan Impression: DYSPHAGIA Plan: -EGD [facility] Comment on above: Result Comment: wrgBox g folder Electronically Signed By: Yovanny OLIVO, [...] Follow these instructions at home: Medicines Take uogq-hth-kynyrcr and prescription medicines only as told by [...] or drinks. ?Garlic or onions. ?Spicy foods. ?Crandall fruits. ?Tomato-based foods. ?Fatty or fried foods. [...] provider. Document Revised: 01/09/2023 Document Reviewed: 01/09/2023 [employer] Patient Education 2023 [employer]. 03/20/2024 13:07:56 Gastritis, Adult, Olmd-uj-Xzco Gastritis, Adult Gastritis is irritation and swelling [...] Follow these instructions at home: Medicines Take fvoy-wtz-oazvzhf and prescription medicines only as told by [...] provider. Document Revised: 10/30/2021 Document Reviewed: 10/30/2021 [employer] Patient Education 2023 [employer] 03/20/2024 13:07:48 [...] reduce GERD symptoms. Medicines. These may include: ?Wrzj-sdx-tlrwqfr antacids. ?Medicines that make your stomach empty [...] may include: ?Fatty foods, like fried foods. ?Crandall fruits, like oranges or lemon. ?Other foods [...] Do not drink alcohol. General instructions Take eunz-qji-zowxosj and prescription medicines only as told by [...] provider. Document Revised: 08/23/2022 Document Reviewed: 08/23/2022 [employer] Patient Education 2023 [employer]. 03/20/2024 13:07:46 Endoscopy, Care After Procedure [facility] ([facility]) Endoscopy Care After Procedure [...] Document Re-Released: 12/18/2006 ExitCare Patient Information 2009 [employer]. Follow Up Care 02/26/2024 09:52:05 With:Yovanny OLIVO, SENAIT Sifuentes, [facility] Address: When: Unknown Comments:Call for any problems. Office will call to schedule follow up appointment [facility] 03-20-2024 Evaluation + Plan note Future Scheduled TestsXR Esophagus 03/20/24 [facility] 03-20-2024 Note Patient Education - [...] Document Re-Released: 12/18/2006 ExitCare? Patient Information ?2009 [employer]. Gastroenterology Hiatal Hernia A hiatal hernia occurs [...] symptoms. ? Medicines. These may include: ? Scvw-afe-csjfaus antacids. ? Medicines that make your stomach [...] Avoid putting pressu (more content not included)... [facility] 03-20-2024 Note Endoscopic Procedure Report - Other [...] surgery referral is indicated, will be ordered [facility] Comment on above: Result Comment: Elec tronically Signed By: Yovanny OLIVO, Katie Torres\.br\Date and Time Signed: 03/20/24 12:58 EDT Other Comment: Samreen dueñas Attachment - attachment storage system not supported [id number] Can be viewed in source systemMissing Attachment - attachment storage system not supported [id number] Can be viewed in source systemMissing Attachment - attachment storage system not supported [id number] Can be viewed in source systemMissing Attachment - attachment storage system not supported [id number] Can be viewed in source systemMissing Attachment - attachment storage system not supported [id number] Can be viewed in source systemMissing Attachment - attachment storage system not supported [id number] Can be viewed in source system 03-20-2024 [...] 1 tab, Oral, Daily Flonase 0.05 mg/inh Moyers: 2 spray(s), Nasal, Daily, Refill(s) 0, Dry [...] a day (at bedtime) Flonase 0.05 mg/inh Moyers 2 spray(s), Nasal, Daily losartan 25 mg [...] All Problems HTN (hypertension) / SNOMED CT 9456895753 / Confirmed Chronic obstructive pulmonary disease / SNOMED CT 31714797 / Confirmed Insomnia / SNOMED CT 096899282 / Confirmed Seasonal allergic rhinitis / SNOMED CT 406814539 / Confirmed Dyslipidemia / SNOMED CT 3768747767 / Confirmed BMI 39.0-39.9,adult / SNOMED CT 276014376 / Confirmed Morbid obesity / SNOMED CT 492870301 / Confirmed GERD (gastroesophageal reflux disease) / SNOMED CT 037241717 / Confirmed Hiatal hernia / SNOMED CT 109963929 / Confirmed EDWIN (obstructive sleep apnea) / SNOMED CT 976327463 / Confirmed Lower extremity edema / SNOMED CT 588752418 / Confirmed TIA (transient ischemic attack) / SNOMED CT 080789733 / Confirmed Screening for malignant neoplasm of colon / SNOMED CT 118656684 / Confirmed Dysphagia / SNOMED CT 69155047 / Confirmed Histories Past Medical History: Resolved Hernia (354083703): Resolved. Sleep apnea (915978143): Resolved. Family History: Father Alcoholism Primary malignant neoplasm of lung COPD Mother Cardiac arrest Alzheimer's disease Procedure history: Colonoscopy (712208569) on 10/13/2023 at 73 Years. ORIF - Open reduction of fracture of ankle with internal fixation (825580348500101). Meniscal repair (308699118). Tonsillectomy (541037959). Hand tendon repaired (852008188). Social History Social & Psychosocial Habits Alcohol [...] Impression and Plan Impression: DYSPHAGIA Plan: -EGD [facility] Comment on above: Result Comment: Elec tronically Signed By: Yovanny OLIVO, Katie Torres\.br\Date and Time Signed: 03/20/24 12:47 EDT 10-16-2023 Note [id number] [facility] 10-13-2023 Evaluation + Plan note Extrac clarke from: Title:ANES Post-operative Note - General Author: Shaji Bethea Jr., DO Date:10/13/23 Plan Transfer/Discharge: Transfer/Discharge Discharge when meets criteria ( From PACU to Ambulatory Surgery Unit, and To home ). Extracted from: Title:ANES Pre-operative Note - Endo Author:Shaji Mendoza Jr., DO Date:10/13/23 Plan [place] [employer] of Anesthesiologists (ASA) physical status classification: Class III. Anesthetic Preoperative Plan: Anesthesia General, and -TIVA. [facility]04-05-2024 Hospital Discharge instructions Patient Education 10/13/2023 09:31:42 Colonoscopy, Care After Surgery Salam (CUSTOM) Colonoscopy Care After Surgery Please read the instructions outlined below and refer to this sheet in the next few weeks. These discharge instructions provide you with general information on [facility] Your doctor may also give you specific [...] Up Care 09/12/2023 10:17:58 With:Pa WEBB Address: [facility] [address], [address] [place] [id number] Business (1) When: only if needed [facility]04-05-2024 NotePatient: SHEY BOSS Age: 73 years Sex: Female : 1950 Associated Diagnoses: None Author: Pa WEBB MD Subjective no changes to H & PFGood Samaritan HospitalComment on above:Result Comment: Electronically Signed By: Pa WEBB MD\.br\Date and Time Signed: 10/13/23 09:45 [id number] NoteChief Complaint consultation for colonoscopy HPI Staff [...] a day (at bedtime) Flonase 0.05 mg/inh Moyers, 2 spray(s), Nasal, Daily losartan 25 mg [...] Alcoholism: Father. Alzheimer's di (more content not included)...[facility] Comment: Electronically Signed By: TRACEY OLIVO, Pa Lynn\Date and Time Signed: 09/12/23 10:16 [id number] History of Present illness Narrative* Latrell Jack [...] referral to General Surgery [id number] NoteEXAMINATION: XR CHEST 1 V HISTORY: SHORTNESS [...] Electronically authenticated by: MEHNAZ SANTIAGO Date: 2021-11-02 16:39[facility]03-04-2022 NotePROCEDURE: XR ANKLE RT MIN 3 [...] Electronically authenticated by: WILLARD ANAND Date: 2021-09-10 09:02[facility]03-04-2022 NotePROCEDURE: XR ANKLE RT 2V COMPARISON: 03/02/2020. HISTORY: Pain FINDINGS: 35 seconds of fluoroscopy. 5 fluoroscopic images Interval removal of internal fixation hardware. Components of 2 fractured screws across the tibiofibular syndesmosis remain on image #5 IMPRESSION: Removal of lateral fibular plate and screws Electronically authenticated by: WILLARD ANAND Date: 2021-09-10 08:30[facility] Future App[facility]ments Appointment Date:03/20/2024 12:15:00 PM Scheduled Provider: Location:[facility] Appointment Type:Surgery [facility] Evaluation note* Diagnosis Essential [...] 40.0-44.9, adult (Z68.41) documented in [facility] encounter [facility]* Diagnosis Memory loss- Primary Word finding difficulty EDWIN on CPAP Other insomnia Other chronic pain Generalized anxiety disorder (CMS/HCC) Generalized anxiety disorder Severe episode of recurrent major depressive disorder, 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) documented in this encounter [facility]* Diagnosis Paraesophageal hernia- Primary Diaphragmatic hernia without mention of obstruction or gangrene [facility] Preoperative examination- Primary Preoperative examination, unspecified Paraesophageal hernia Diaphragmatic hernia without mention of obstruction or gangrene Abnormal results of liver function studies Nonspecific abnormal results of liver function study Abnormal coagulation profile [facility] Diagnosis Essential hypertension, benign (CMS/HCC)- Primary [...] Narrative No data available for this section [facility] No data available for this section [facility] Progress note No data available for this section [facility] Consultation (Routine) - Pending Review Specialty Diagnoses / Procedures Referred By Joan junior Referred To Contact General Surgery Diagnoses Screening for colon cancer Procedures ND OFFICE/OUTPATIENT [facility] 60 MINUTES Latrell Jack MD [address] [place] [address] Pa Webb MD [address] [place] [address] Referral ID Status Reason Start Date Expiration Date Visits Requested Visits Authorized [id number] Pending Review Specialty Services Required 08/11/2023 02/07/2024 [...] Advanced Directives Records Found Hospital Course Note [facility] SURGERY Clinical Discharge Summary PERSON INFORMATION Name SHEY BOSS Age 68 Years 52 Sex FEMALE Language Luxembourger PCP LATRELL JACK Marital Status Single Med Service Ambulatory Surgery Acct# Arrival 02/04/19 11:44:00 Visit Reason SURGERY - RELEASE TRIGGER FINGER LEFT RING FINGER AND E/O CYST LEFT RING FINGER Acuity LOS 012 05:38 Address: [address] [place] [address] Comment: PROVIDER INFORMATION VITALS INFORMATION Vital Sign [...] FOR PERIOPERATIVE MEDICINE - PREOPERATIVE OPTIMIZATION OFFICE/OUTPATIENT [facility] 60 MINUTES Katarzyna Carter, BI DEVELOPER.ORTHOTIC AND PROSTHETIC TECHNICIAN [address] [address] Referral ID Status Reason Start Date Expiration Date Visits Requested Visits Authorized [id number] Authorized PCP Requested Referral 4 05/04/2025 1 1 Specialty Diagnoses / Procedures Referred By Contac t Referred [facility] Diagnoses Preoperative examination Paraesophageal hernia Procedures ECG COMPLETE ECG ROUTINE ECG W/LEAST 12 LDS W/I&R Katarzyna Carter APRN.ORTHOTIC AND PROSTHETIC TECHNICIAN [address] [address] [facility] [place] [address] [place] [id number] Referral ID Status Reason Start Date Expiration Date Visits Requested Visits Authorized [id number] New Request Auto-Generat ed Referral 4 05/04/2025 1 1 Additional Source Comments INFORMATION SOURCE (unrecogn ized section and content) DATE CREATED AUTHOR 02/17/2019 [facility] DATE CREATED AUTHOR AUTHOR'S ORGANIZ ATION 08/03/2022 [facility] DATE CREATED AUTHOR AUTHOR'S ORGANIZ ATION 03/28/2024 [facility] DATE CREATED AUTHOR AUTHOR'S ORGANIZ ATION 03/30/2024 [facility] DATE CREATED AUTHOR AUTHOR'S ORGANIZ ATION 04/04/2024 [facility] ical Center DATE CREATED AUTHOR AUTHOR'S ORGANIZ ATION 04/30/2024 [facility] DATE CREATED AUTHOR AUTHOR'S ORGANIZ ATION 06/01/2024 [facility] DATE CREATED AUTHOR AUTHOR'S ORGANIZ ATION 06/02/2024 [facility] dical Specialists EPIC Care Teams (unrecognized sec tion and content) Tableau Administrator Relationship Specialty Start Date End Date Latrell Jack MD [address] [place] [phone] PCP - General Family Medicine 08/05/23 Tableau Administrator Relationship Specialty Start Date End Date Latrell Jack MD [address] [place] [phone] PCP - General Family Medicine 08/05/23 Tableau Administrator Relationship Specialty Start Date End Date Latrell Jack MD [address] [place] [address] PCP - General Family Medicine 08/05/23 Tableau Administrator Relationship Specialty Start Date End Date Katie Hairston MD [address] [place] [address] Internal Medicine 04/02/24 Tableau Administrator Relationship Specialty Start Date End Date Katie Hairston MD [address] [place] [address] Internal Medicine 04/02/24 Tableau Administrator Relationship Specialty Start Date End Date Katie Hairston MD [address] [place] [id number] Internal Medicine 04/02/24 Tableau Administrator Relationship Specialty Start Date End Date Latrell Jack MD [address] [address] PCP - General Family Medicine 08/05/23 Tableau Administrator Relationship Specialty Start Date End Date Latrell Jack MD [address] [place] [address] PCP - General Family Medicine 08/05/23 Reason for Visit (unrecogniz ed section and content) Reason Comments Follow-up 6 m Reason Comments New Patient Evaluation Hiatal Hernia Reason Comments 07.24.24 Cure Lap Paraesophageal H ernia Repair/EGD 4 hours los 1 Reason Comments Follow-up 3 m Source Comments (unrecognize d section and content) In the event this informatio n is protected by the [facility] Confidentiality of Alcohol and Drug Abuse Patient Records regulations: The Federal rules restrict any use of the information to criminally investigate or prosecute any alcohol or drug abuse patient.[facility] the event this information is protected by the Federal Confidentiality of Alcohol and Drug Abuse Patient Records regulations: The Federal rules restrict any use of the information to criminally investigate or prosecute any alcohol or drug abuse patient.[facility]ble[facility] the event this information is protected by the Federal Confidentiality of Alcohol and Drug Abuse Patient Records regulations: The Federal rules restrict any use of the information to criminally investigate or prosecute any alcohol or drug abuse patient.[facility] FOR RECORDS PERTAINING TO PATIENTS WHO ARE [...] BE BASED ON THE PRIMARY CLINICAL RECORDS. [facility] [address] [facility]. provides no warranty or guarantee of the accuracy or completeness of information in this document.
--- NOTE | 2024-06-13 08:06 | P.CN_ITS ---
Consult Note: HPI Data of Consult Patient: known to practice within the last 3 years Consult date: 04/15/24 Requesting Physician: Amalia Woodson NP Primary Care Provider: Latrell Mckeon MD Consult Narrative Reason for consult: low back pain Narrative: 73yof who presents for evaluation. chronic low back and right foot pain, recent lumbar MRI consistent with lumbar stenosis with NC and lumbar spondylosis, see results below. Pain unresponsive to tylenol, cannot take NSAIDs with hiatal hernia. Mild relief from zonegran 100mg HS without side effects. Has failed to benefit from HEP greater than 6 weeks. Pain today in low back and left SIJ 7/10, increasing to 9/10 with standing walking and long periods of sitting, improved with changing positions. Eduin numbness tingling weakness and loss of bowel/bladder. denies recent falls. Recently underwent bilateral L4-5 L5-S1 MBB #1 and #2 with >80% improvement immediately following and 10 hrs after the procedure, significant improvement in ability to stand walk and twist. Preop pain up to 9/10 post op 0/10. cc:: CC: Amalia Woodson NP Review of Systems ROS Status of ROS 10 or more systems reviewed and unremark able except as noted in history and below Musculoskeletal Reports: back pain PFSH PFSH Medical History Osteoarthritis ?M19.90 - Unspecified osteoarthritis, unspecified site (ICD-10) Anxiety ?F41.9 - Anxiety disorder, unspecified (ICD-10) Hiatal hernia ?K44.9 - Diaphragmatic hernia without obstruction or gangrene (ICD-10) Sleep apnea ?G47.30 - Sleep apnea, unspecified (ICD-10) COPD (chronic obstructive pulmonary disease) ?J44.9 - Chronic obstructive pulmonary disease, unspecified (ICD-10) High cholesterol ?E78.00 - Pure hypercholesterolemia, unspecified (ICD-10) HTN (hypertension) ?I10 - Essential (primary) hypertension (ICD-10) Surgical History History of ankle surgery ?Z98.890 - Other specified postprocedural states (ICD-10) History of hand surgery ?Z98.890 - Other specified postprocedural states (ICD-10) History of knee replacement ?Z96.659 - Presence of unspecified artificial knee joint (ICD-10) Meds Home Medications and Allergies Home Medications ?Medication ?Instructions ?Recorded ?Confirmed ?Type aspirin 81 mg tablet,delayed 81 mg PO DAILY 04/16/24 06/10/24 History release (Adult Aspirin Regimen) atorvastatin 40 mg tablet 40 mg PO DAILY 04/16/24 06/10/24 History calcium carbonate (Calcium 500) 500 mg PO BID 04/16/24 06/10/24 History donepezil 5 mg tablet (Aricept) 5 mg PO DAILY 04/16/24 06/10/24 History famotidine 40 mg tablet 40 mg PO DAILY 04/16/24 06/10/24 History fluticasone propionate 50 2 spray intranasal DAILY PRN 04/16/24 06/10/24 History mcg/actuation nasal allergy symptoms spray,suspension (24 Hour Allergy Relief) losartan 50 mg tablet 50 mg PO DAILY 04/16/24 06/10/24 History pantoprazole 40 mg tablet,delayed 40 mg PO BID 04/16/24 06/10/24 History release tiotropium bromide 18 mcg capsule 1 cap inhalation DAILY 04/16/24 06/10/24 History with inhalation device (Spiriva with HandiHaler) vitamin E 268 mg (400 unit) capsule 268 mg PO DAILY 04/16/24 06/10/24 History zolpidem 12.5 mg tablet,extended 12.5 mg PO DAILY 04/16/24 06/10/24 History release,multiphase zonisamide 50 mg capsule 100 mg PO BEDTIME 05/29/24 06/10/24 History Allergies Allergy/AdvReac Type Severity Reaction Status Date / Time No Known Drug Allergies Allergy Verified 06/10/24 07:23 Exam Constitutional Documenting provider has reviewed patient's vital signs: yes Common normals: no apparent distress, oriented x3, healthy appearing, alert and well nourished General appearance: cooperative HENMT Common normals: normocephalic, hearing grossly normal bilaterally and moist oral mucous membranes Head and scalp: normocephalic Eye Common normals: PERRL Pupil: PERRL Neck & C-Spine Common normals: full ROM General: normal visual inspection Chest Common normals: inspection of chest normal Respiratory Common normals: normal respiratory effort, no retractions and no use of accessory muscles Back & Pelvis Lumbar spine/lower back: pain with ROM, lumbar spinal tenderness, paraspinal muscle tenderness and straight leg raise negative bilaterally; no paraspinal muscle spasm Sacroiliac joints: SI joint(s) abnormal Other: positive facet loading increased pain over L4-S1 facets strength 5/5 in BLE sensation intact BLE left SIJ positive mauro(patricks), gaenslens, thigh thrust, compression test Neuro Common normals: oriented x3, CN's II-XII intact bilaterally, moves all extremities, no focal motor deficits, no sensory deficits noted and deep tendon reflexes 2+ bilaterally Sensorium/orientation: alert Motor exam: strength 5/5 throughout and no movement abnormalities noted Psych Common normals: mental status grossly normal, thought process normal, cooperative, affect normal, speech normal and activity/motor behavior normal Speech: normal speech Thought process: normal thought process Results Additional Findings Additional findings: If on a controlled substance or opioids, I have checked an [place] report on this patient and there are no aberrancies noted in the prescribing history.??If on a controlled substance or opioid a drug screen was completed and reviewed within the last year, and if there has not been a drug screen completed we ordered one today to monitor higher risk, state monitored pain medication use. As part of providing excellent, safe, comprehensive care, the following was completed at our patient's visit: 1. A medication reconciliation and review to ensure accurate knowledge of current/active medications, including asking our patients to inform us about any [id number] medications or herbal remedies/nutritional supplements/alternative remedies. 2. A review to specifically ensure our patients have had annual screening for screening for depression, screening for tobacco use, and screening for unhealthy alcohol use. For concerning screenings had a discussion with the patient, provided patient education, and recommended follow-up with primary care provider when appropriate. If patient noted with a risk of falling, they received education on strength, gait, and balance training to prevent future risk of falling. Assessment and Plan Assessment and Plan (1) Lumbar spondylosis: (2) Myalgia: Plan bilateral L4-5 L5-S1 facet medial branch RFA under fluoroscopy with IV sedation, risks vs benefits reviewed continue HEP as tolerated continue baclofen 5-10mg BID PRN pain/spasms continue zonegran 100mg HS f/u 1 month after RFA complete
== END 2024-06-13 07:49 | disposition home or self-care (01) ==
LOC: PM 07:48
PROVIDERS: PCP Family Medicine; Visit Provider Nurse Practitioner
DX: M47.816 Spondylosis without myelopathy or radiculopathy, lumbar region (principal); M79.18 Myalgia, other site
CPT/HCPCS: G0463

== ENCOUNTER 2024-06-24 07:03 | Day surgery (SDC) | payer MEDICARE, OTHER, SELFPAY ==
--- OUTSIDE RECORDS SUMMARY | 2024-06-24 07:06 | XMS_ITS | CCD ---
Author Organization [facility] Care Team Providers Care Sparker And Patcher Name Role Phone FREDY, DR CHAPARRO Attending [...] ble Sarmini, Leos Talal Attending Unavaila ble aP WEBB Attending Unavailable LATRELL JACK Referring Unavailable Yovanny OLIVO, Leos Taljennifer Unavailable XAVIER BOYD Attending Unava ilable SARMINI, LEOS TALAL Referring Unavaila ble SANDRA ARCOS Attending Unavailable NADERER, LATRELL Attending Unavailable MAO MORROW Attending Unavailable DIOMEDES FITZGERALD Referring Unavailable AMILCARDIOMEDES PELAEZ Attending Unavailable NADERELATRELL Vivas Referring Unavailable NADEREOrtega, LATRELL Attending Unavailable NADERER, LATRELL Attending Unavailable Amilcar , Diomedes Unavailable Jocelynitis , Andlinette Benedict Attending Unavailable Giedraitis , Andrius Vytlisandra Attending Unavailable Giedraitis , Andrius Vytlisandra Attending Unavailable Giedraitis , Andrius Vytlisandra Attending Unavailable Allergies Allergy Classification Reported Allergen(s) Allergy Type Date of Onset Reaction(s) Facility (1 source) Amino Acids Drug Allergy [facility] Repository Medications Current Medications Medication Drug Class(es) Dates Sig (Normalized) Sig (Original) aspirin 81 mg oral tablet (18 sources) Platelet Aggregation Inhibitor, Nonsteroidal Anti-inflammatory Drug Start: 03-05-2021 aspirin 81 mg cap Take 81 mg by mouth. 03/05/2021 Active Start: 03-05-2021 take 1 tablet by jennifer th once daily aspirin 81 mg Oral EC Tab 81 mg = 1 tab(s), Oral, Daily, Refills(s) 0, Prophylaxis Start Date: 03/05/21 Status: Ordered atorvastatin 40 mg oral tablet (18 sources) HMG-CoA Reductase Inhibitor Start: 03-12-2021 take 1 tablet by mouth at bedtime atorvastatin (Lipitor) 40 MG tablet Indications: Dyslipidemia (CMS/HCC) Take 1 tablet (40 mg) by mouth at bedtime 90 tablet 3 02/09/2024 Active baclofen 10 mg oral tablet (1 source) gamma-Aminobutyr ic Acid-ergic Agonist take 5 mg by mouth in the morning baclofen (Lioresal) 10 MG tablet Take 5 mg by mouth in the morning and 5 mg before bedtime. Active Calcium (3 sources) Phosphate Binder, Calcium Start: 02-26-2024 take 1 tablet by mouth once daily Calcium Calcium, 1 tab, Oral, Daily Start Date: 02/26/24 Status: Ordered Start: 02-26-2024 Calcium Calciu m Start Date: 02/26/24 Status: Ordered calcium carbonate 1500 mg oral tablet (14 sources) take 1 tablet by mouth in the morning calcium carbonate 1500 (600 Ca) MG tablet Take 1 tablet by mouth in the morning and 1 tablet in the evening. Take with meals. Active cholecalciferol 0.025 mg oral capsule (14 sources) Vitamin D take 1 capsule by mouth once daily cholecalciferol (Vitamin D-3) 25 MCG (1000 UT) capsule Take 1 capsule by mouth 1 (one) time each day at the same time Active Cholecalciferol, Vitamin D3, 25 mcg (1,000 unit) cap Take 1 capsule by mouth. Active donepezil hydrochloride 10 mg oral tablet (15 sources) Start: 05-30-2024 End: 05-30-2025 take 1 tablet by mouth at bedtime donepezil (Aricept) 10 MG tablet Indications: Memory loss Take 1 tablet (10 mg) by mouth at bedtime 90 tablet 1 05/30/2024 05/30/2025 Active Start: 02-23-2024 take 1 tablet by jennifer th at bedtime donepezil (Aricept) 5 MG tablet Indications: 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CMS/HCC) TAKE 1 TABLET BY MOUTH AT BEDTIME 90 tablet 1 03/04/2024 Active famotidine 40 mg oral tablet (18 sources) Histamine-2 Receptor Antagonist Start: 05-15-2024 famotidine (Pepcid) 40 MG tablet Indications: Hiatal hernia with gastroesophageal reflux disease without esophagitis TAKE 1 TABLET TWICE DAILY 180 tablet 3 05/15/2024 Active Start: 11-08-2020 take 1 tablet by jennifer th once daily at bedtime famotidine 40 mg Tab 40 mg = 1 tab(s), Oral, Once a day (at bedtime), Refills(s) 0, Control of stomach acid Start Date: 03/03/21 Status: Ordered fluticasone propionate 0.05 mg/actuat metered dose nasal spray (18 sources) Corticosteroid Start: 03-26-2024 take 2 spray(s) nasal route once daily fluticasone (Flonase) 50 MCG/ACT nasal spray Indications: Seasonal allergic rhinitis due to pollen USE 2 SPRAYS IN EACH NOSTRIL DAILY 48 mL 5 03/26/2024 Active Start: 09-06-2023 fluticasone (F LONASE) 50 mcg/actuation nasal spray 2 Sprays once daily. 09/06/2023 Active Start: 09-06-2023 Flonase 0.05 m g/inh [place] 2 spray(s), Nasal, Daily, Refill(s) 0, Dry nasal passages Start Date: 09/06/23 Status: Ordered Start: 06-21-2023 End: 03-26-2024 take 2 spray(s) nasal route in the morning fluticasone (Flonase) 50 MCG/ACT nasal spray Administer 2 sprays into each nostril in the morning. 06/21/2023 03/26/2024 Discontinued losartan potassium 50 mg oral tablet (20 sources) Angiotensin 2 Receptor Martin Start: 06-13-2024 take 1 tablet by mouth in the morning losartan (Cozaar) 50 MG tablet Indications: Essential hypertension, benign (CMS/HCC) Take 1 tablet (50 mg) by mouth in the morning and 1 tablet (50 mg) before bedtime. 180 tablet 3 06/13/2024 Active Start: 02-09-2024 End: 06-13-2024 take 1 tablet by mouth in the morning losartan (Cozaar) 50 MG tablet Indications: Essential hypertension, benign (CMS/HCC) Take 1 tablet (50 mg) by mouth in the morning and 1 tablet (50 mg) before bedtime. 180 tablet 3 05/15/2024 06/13/2024 Discontinued (Reorder) Start: 09-06-2023 take 1 tablet [...] time 0 Active Multiple Vitamin (multivitamin) capsule (4 sources) take 1 capsule by mouth once daily Multiple Vitamin (multivitamin) capsule Take 1 capsule by mouth Daily Active pantoprazole 40 mg delayed release oral tablet (19 sources) Proton Pump Inhibitor Start: 06-13-20 take 1 tablet by mouth in the morning pantoprazole (ProtoNix) 40 MG EC tablet Indications: Hiatal hernia with gastroesophageal reflux disease without esophagitis Take 1 tablet (40 mg) by mouth in the morning and 1 tablet (40 mg) before bedtime. 180 tablet 3 06/13/2024 Active Start: 03-03-2021 End: 06-13-2024 take 1 tablet by mouth in the morning pantoprazole (ProtoNix) 40 MG EC tablet Indications: Hiatal hernia with gastroesophageal reflux disease without esophagitis Take 1 tablet (40 mg) by mouth in the morning and 1 tablet (40 mg) before bedtime. 180 tablet 3 02/09/2024 Active predniSONE 50 mg oral tablet (2 sources) Start: 05-15-2024 End: 05-21-2024 take 1 tablet by mouth once daily predniSONE (Deltasone) 50 MG tablet Indications: Chronic obstructive pulmonary disease, unspecified COPD type (CMS/HCC) Take 1 tablet (50 mg) by mouth Daily for 6 days 6 tablet 05/15/2024 05/21/2024 Active tiotropium 0.018 mg inhalation powder (13 sources) Anticholinergic Start: 10-09-2023 End: 10-08-2024 take [...] D3 1000 intl units (25 mcg) Tab (4 sources) Start: 09-06-2023 take 1 tablet by mouth once daily Vitamin D3 1000 intl units (25 mcg) Tab 25 mcg = 1 tab(s), Oral, Daily, Refills(s) 0, Prophylaxis Start Date: 09/06/23 Status: Ordered Vitamin E (17 sources) Start: 02-26-2024 vitamin E Oral , Daily, Refills(s) 0, Prophylaxis Start Date: 02/26/24 Status: Ordered Start: 02-26-2024 vitamin E Oral , Refills(s) 0 Start Date: 02/26/24 Status: Ordered take 1 capsule by mo ut once daily alpha tocopherol (Vitamin E) 400 units capsule Take 1 capsule by mouth 1 (one) time each day at the same time Active Vitamin E, dl, a cetate, (VITAMIN E) 400 unit capsule Take 1 capsule by mouth. Active zolpidem tartrate 12.5 mg extended release oral tablet (18 sources) gamma-Aminobutyric Acid-ergic Agonist Start: 03-03-2021 zolpidem CR (Ambien CR) 12.5 MG ER tablet Indications: Primary insomnia TAKE 1 TABLET AT BEDTIME 90 tablet 2 11/17/2023 Active Completed/Discontinued Medications Medication Drug Class(es) Dates Sig (Normalized) Sig (Original) albuterol 0.83 mg/ml inhalation solution (12 sources) beta2-Adrenergic Agonist Start: 02-23-2024 albuterol 0.083% [...] 02/09/2024 Active One A Day Women's Complete (4 sources) Start: 03-03-2021 One A Day Wome n's Complete Oral, Daily, Refill(s) 0, Prophylaxis Start Date: 03/03/21 Status: Ordered Problems Active Problems Problem Classification Problem Date Documented Date Episodic/Chronic Abdominal hernia (20 sources) Diaphragmatic hernia without obstruction or gangrene; Translations: [Gastroesophageal reflux disease with hiatal hernia] Onset: 2 08-11-2023 Episodic Acute cerebrovascular disease (9 sources) Cerebrovascular accident; Translations: [Cerebral infarction, unspecified] Onset: 4 03-03-2024 Chronic Anxiety disorders (4 sources) Generalized anxiety disorder; Translations: [Generalized anxiety disorder] 04-12-2024 Chronic Chronic obstructive pulmonary disease and bronchiectasis (20 sources) Chronic obstructive pulmonary disease, unspecified; Translations: [Chronic obstructive pulmonary disease with (acute) exacerbation] Onset: 2 08-11-2023 Chronic Delirium, dementia, and amnestic and other cognitive disorders (9 sources) Senile dementia; Translations: [Unspecified dementia without behavioral disturbance] Onset: 4 02-09-2024 Chronic Disorders of lipid metabolism (19 sources) Hyperlipidemia, unspecified; Translations: [Dyslipidemia] Onset: 2 08-11-2023 Chronic Esophageal disorders (5 sources) Gastroesophageal reflux disease; Translations: [Gastroesophageal reflux disease without esophagitis] Onset: 4 09-06-2023 Chronic Essential hypertension (20 sources) Essential (primary) hypertension; Translations: [Benign essential hypertension] Onset: 2 08-11-2023 Chronic Miscellaneous mental health disorders (16 sources) Psychophysiologic insomnia; Translations: [Primary insomnia] Onset: 2 08-11-2023 Chronic Mood disorders (2 sources) 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 features; Translations: [Major depressive disorder, recurrent severe without psychotic features] 04-12-2024 Chronic Osteoarthritis (16 sources) Primary gonarthrosis, bilateral; Translations: [Bilateral primary osteoarthritis of knee] Onset: 4 08-11-2023 Chronic Other aftercare (4 sources) Patient encounter status; Translations: [Other half-way (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 therapy] Onset: 4 08-11-2023 Episodic Other nervous system disorders (4 sources) Chronic pain; Translations: [Other chronic pain] 04-12-2024 Chronic Other nervous system disorders (4 sources) Word finding difficulty ; Translations: [Other speech disturbances] 04-12-2024 Episodic Other nutritional; endocrine; and metabolic disorders (1 source) Obesity, unspecified; Translations: [OBESITY UNSPECIFIED] Onset: 2 Chronic Other nutritional; endocrine; and metabolic disorders (1 source) Morbid (severe) obesity due to excess calories; Translations: [MORBID SEVERE OBES D/T EXCESS JUILO C] Onset: 2 Chronic Other nutritional; endocrine; and metabolic disorders (1 source) Body mass index (BMI) 38.0-38.9, adult; Translations: [BODY MASS INDEX BMI 38.0-38.9 ADULT] Onset: 2 Chronic Other nutritional; endocrine; and metabolic disorders (17 sources) Morbid obesity; Translations: [Morbid (severe) obesity due to excess calories] Onset: 4 08-11-2023 Chronic Other nutritional; endocrine; and metabolic disorders (2 sources) Body mass index 40+ - severely obese; Translations: [Body mass index (BMI) 40.0-44.9, adult] 08-11-2023 Chronic Other nutritional; endocrine; and metabolic disorders (4 sources) Body mass index 30+ - obesity 09-12-2023 Chronic Other nutritional; endocrine; and metabolic disorders (5 sources) Obesity caused by energy imbalance; Translations: [Other obesity due to excess calories] Onset: 4 03-03-2024 Chronic Other nutritional; endocrine; and metabolic disorders (6 sources) Severe obesity; Translations: [Class 2 severe obesity due to excess calories with serious comorbidity and body mass index (BMI) of 38.0 to 38.9 in adult ([facility])] Onset: 4 05-15-2024 Chronic Other screening for suspected conditions (not mental disorders or infectious disease) (10 sources) Encounter for screening mammogram for malignant neoplasm of breast; Translations: [Patient encounter status] Onset: 2 Episodic Other upper respiratory disease (13 sources) Allergic rhinitis due to pollen; Translations: [Allergic rhinitis due to pollen] Onset: 4 08-11-2023 Chronic Other upper respiratory disease (4 sources) Seasonal allergic rhinitis 09-06-2023 Chronic Residual codes; unclassified (1 source) Obstructive sleep apnea (adult) (pediatric); Translations: [OBSTRUCTIVE SLEEP APNEA] Onset: 2 Chronic Residual codes; unclassified (20 sources) Obstructive sleep apnea syndrome; Translations: [Obstructive sleep apnea (adult) (pediatric)] Onset: 4 08-11-2023 Chronic Residual codes; unclassified (4 sources) Sleep apnea 03-03-2021 Chronic Residual codes; unclassified (4 sources) Insomnia; Translations: [Other insomnia] 04-12-2024 Chronic Residual codes; unclassified (4 sources) Insomnia 09-06-2023 Episodic Residual codes; unclassified (4 sources) Amnesia; Translations: [Other amnesia] 04-12-2024 Episodic Screening and history of mental health and substance abuse codes (5 sources) Personal history of nicotine dependence; Translations: [PERSONAL HISTORY OF NICOTINE DEPEND] Onset: 2 Episodic Transient cerebral ischemia (16 sources) Transient cerebral ischemia; Translations: [Transient cerebral ischemic attack, unspecified] Onset: 4 08-11-2023 Chronic Unclassified (2 sources) COUGH, UNSPECIFIED; Translations: [COUGH, UNSPECIFIED] Onset: 2 Unclassified (1 source) CONTACT W/AND (SUSP) EXPOS COVID-19; Translations: [CONTACT W/AND (SUSP) EXPOS COVID-19] Onset: 2 Unclassified (4 sources) Patient encounter status 09-12-2023 Viral infection [...] Onset: 09-16-2021 Episodic Diabetes mellitus without complication (9 sources) Prediabetes; Translations: [Prediabetes] Onset: 08-13-2023 08-13-2023 [...] Episodic Other aftercare (1 source) Other terminal supervisor (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 therapy; Translations: [OTH NURSE CLINICIAN CURRENT DRUG THERAPY] Onset: 02-23-2022 Episodic Other aftercare (1 source) terminal press operator (current) use of aspirin; Translations: [MCFP CURRENT USE OF ASPIRIN] Onset: 02-23-2022 Episodic Other aftercare (9 sources) Long-term current use of drug therapy; Translations: [Other half-way (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 therapy] Onset: 08-11-2023 08-11-2023 Episodic Other bone disease and musculoskeletal deformities (1 source) Other specified disorders of bone density and structure, other site; Translations: [OTH D/O BONE DEN STRUCT OTH SITE] Onset: 09-16-2021 Episodic Other bone disease and musculoskeletal deformities (12 sources) Osteopenia; Translations: [Other specified disorders of bone density and structure, other site] Onset: 08-11-2023 08-11-2023 Episodic Other circulatory disease (1 source) Personal history of transient ischemic attack (TIA), and cerebral infarction without residual deficits; Translations: [PERS HX TIA AND CI NO RESID DEFICIT] Onset: 09-16-2021 Episodic Other gastrointestinal disorders (13 sources) Dysphagia; Translations: [Dysphagia, unspecified] Onset: 02-09-2024 [...] ANKLE] Onset: 09-16-2021 Episodic Residual codes; unclassified (9 sources) Hypersomnia; Translations: [Hypersomnia, unspecified] Onset: 03-03-2024 Resolved: 11-06-2024 08-25-2024 Chronic Residual codes; unclassified (1 source) Family history of malignant neoplasm of trachea, bronchus and lung; Translations: [FAM HX MALIG NEOPLSM TRACH BRON LNG] Onset: 11-12-2021 Episodic Residual codes; unclassified (1 source) Asymptomatic menopausal state; Translations: [ASYMPTOMATIC MENOPAUSAL STATE] Onset: 09-16-2021 Episodic Residual codes; unclassified (16 sources) Edema of lower extremity; Translations: [Localized edema] Onset: 08-11-2023 08-11-2023 Episodic Spondylosis; intervertebral disc disorders; other back problems (1 source) Lumbago with sciatica, left side; Translations: [LUMBAGO WITH SCIATICA LEFT SIDE] Onset: 09-16-2021 Episodic Unclassified (1 source) COUGH, UNSPECIFIED; Translations: [COUGH, UNSPECIFIED] Onset: 02-22-2022 Results Test Name Value Interpretation Reference Range Facility [facility] 04-29-2024 [facility] SHEY BOSS ([id number]) 1950 F Date Time Provider Department 04/29/24 11:00 AM XAVIER BOYD [facility] During your visit today, we recorded the [...] No Yan Moser 04/29/2024 12:10 PM Signed [facility] Abdominal [facility] - HISTORY AND PHYSICAL SUBJECTIVE: Chief [...] Consents obtained Yan Moser MD General Surgery [facility], Xavier Acharya MD 04/29/2024 12:10 PM Signed [...] and discussed (more content not included)... Normal [facility] Anca 04-22-2024 MARY Telephone ([id number]) SHEY BOSS ([id number]) 1950 F Date Time Provider Department 04/22/24 ASHLIE CALDERON ARNOLDO During your visit today, we recorded the following information about you: Ashlie Calderon 04/22/2024 5:39 PM Signed Spoke with PT she state no prior surgeries Allergies As of Date: 04/22/2024 (Not on File) Date Reviewed: Never Reviewed Problem List As Of Date: 04/22/2024 (None) Encounter Status:Closed by ASHLIE CALDERON on 04/22/24 Normal [facility] Surgical Pathology Reporton 03-26-2024 Surgical Pathology Report [address] [address]- Surgical Pathology Report Collected Date/Time: 03/20/2024 12:52 [...] is entirely submitted in one cassette. (DC) DC:[facility] Microscopic Description Microscopic examination performed unless gross only specified. The use of one or more reagents in the above tests is regulated as an analyte specific reagent (ASR). The test or tests are ordered following initial H&E microscopic examination. The performance characteristics were determined by the [facility] of [facility]. They have not been cleared or approved by the US Food and Drug Administration. The FDA has determined that such clearance or approval is not necessary. These tests are used for clinical purposes. They should not be regarded as investigational or for research. Appropriate positive and negative controls are performed and are acceptable. Normal [facility] Comment on above: Performed By: #### [id number] #### [facility] [address] [place] [address] XR Esophaguson 03-26-2024 XR Esophagus Exam Date/Time: [...] in mGy = 15.80 DAP = 464.17 [facility] Main OR Intraoperative Recor don 03-22-2024 Main OR Intraoperative Record Main OR Intraoperative Record IntraOp Document Type FT Summary Primary Physician: Katie Hairston MD Finalized Date/Time: 03/22/24 14:46:15 Pt. Name: SHEY BOSS D.O.B./Sex: 1950 Female Med Rec #: [id number] Physician: Yovanny OLIVO, Katie Torres Financial #: [id number] Pt. Type: O Room/Bed: / Admit/Disch: 03/20/24 [...] Анна Hairston MD, Katie Torres Role Performed GLASS OR MIRROR INSPECTOR Scrub - Primary Surgeon - Primary Time In 03/20/24 12:44:00 03/20/24 12:44:00 03/20/24 12:44:00 Time Out 03/20/24 12:56:00 03/20/24 12:56:00 03/20/24 12:56:00 Procedure EGD(.) EGD(.) EGD(.) Comments Dr. Hairston supervising procedure. Last Modified By: Mynor FORBES, Violette Lopez RN, Essence Pinto RN 03/22/24 14:45:45 03/20/24 12:56:36 03/20/24 12:56:36 Entry 4 Case Attendee Essence Lopez RN Role Performed Proposal Director - Primary Time In 03/20/24 12:44:00 Time [...] and tissue Entry 1 Skin Integrity Intact, Bivins, Warm, & Skin Abnormality No Dry Outcomes Met? Yes Last Modified By: John FORDE, Essence N 03/20/24 12:47:45 Post-Care Text: The patient is [...] Extended Positioning (more content not included)... Normal [facility] Discharge Instructionson Discharge Instructions Discharge Instructions [...] mg Tab) fluticasone nasal (Flonase 0.05 mg/inh [place]) losartan (losartan 25 mg Tab) multivitamin with [...] Discharge Follow Up with Yovanny OLIVO, SENAIT Sifuentes, GERMAN When: Comments: Call for any problems. Office [...] Unchanged fluticasone nasal (Flonase 0.05 mg/ inh [place]) 2 Sprays Nasal Inhalation Every day Unchanged [...] get better (more content not included)... Normal [facility] Comment on above: Result Comment: Elec tronically Signed By: Kassy Barker I\.br\Date and Time Signed: 03/20/24 13:08 EDT Inpatient Patient Summaryon 03-20-2024 Inpatient Patient Summary Inpatient Patient Summary [place] [id number] [facility] Clinical Discharge Instructions PERSON INFORMATION Name: [...] (at bedtime). fluticasone nasal (Flonase 0.05 mg/inh [place]) 2 Sprays Nasal Inhalation every day. losartan [...] bedtime) as needed for sleep. Comment: Kary [facility] Main OR PACU I Recordon 03-10 Main OR PACU I Record Main OR PACU I Record PACU Phase I Document Type FT Summary Primary Physician: Katie Hairston MD Finalized Date/Time: 03/20/24 13:37:02 Pt. Name: SHEY BOSS/Sex: 1950 Female Med Rec #: [id number] Physician: Katie Hairston MD Financial #: [id number] Pt. Type: O Room/Bed: / Admit/Disch: 03/20/24 [...] By: Kassy Barker I 03/20/24 13:37 Normal [facility] Main OR Preoperative Recordo n 03-20-2024 Main OR Preoperative Record Main OR Preoperative Record Holding Area Document Type FT Summary Primary Physician: Katie Hairston MD Finalized Date/Time: 03/20/24 11:17:32 Pt. Name: SHEY BOSS D.O.B./Sex: 1950 Female Med Rec #: [id number] Physician: Katie Hairston MD Financial #: [id number] Pt. Type: O Room/Bed: / Admit/Disch: 03/20/24 [...] By: Essence Lopez RN 03/20/24 11:17 Normal [facility] Outpatient Surgery Discharge Instructionon 03-20-2024 Outpatient Surgery Discharge Instruction Outpatient Surgery Discharge Instruction [place] [id number] Patient Discharge Instructions PERSON INFORMATION Name: SHEY [...] to serve you. Thank you for choosing [facility] HERE ARE THE MEDICATION CHANGES THAT OCCURRED [...] (at bedtime). fluticasone nasal (Flonase 0.05 mg/inh [place]) 2 Sprays Nasal Inhalation every day. losartan [...] EDUCATION INFORMATION Instructions: Medication Leaflets: [facility] Proceduralon 03-20-2024 Procedural Procedural Patient: SHEY BOSS Age: 73 years Sex: Female : 1950 Associated Diagnoses: None Author: Daquan Schuler MD Postoperative Information Postoperative disposition: Postoperative disposition: To PACU. Optimetrix number: Optimetrix number [id number]. Anesthetic utilized: General. Health Status Allergies: Allergic [...] meets criteria ( To home ). Normal [facility] Procedural Procedural Patient: SHEY BOSS Age: [...] 1 tab, Oral, Daily Flonase 0.05 mg/inh [place]: 2 spray(s), Nasal, Daily, Refill(s) 0, Dry [...] a day (at bedtime) Flonase 0.05 mg/inh [place] 2 spray(s), Nasal, Daily losartan 25 mg [...] All Problems BMI 39.0-39.9,adult / SNOMED CT 620095200 / Confirmed Chronic obstructive pulmonary disease / SNOMED CT 24860432 / Confirmed Dyslipidemia / SNOMED CT 1254966167 / Confirmed Dysphagia / SNOMED CT 89866784 / Confirmed GERD (gastroesophageal reflux disease) / SNOMED CT 770555383 / Confirmed Hiatal hernia / SNOMED CT 660858403 / Confirmed HTN (hypertension) / SNOMED CT 9946753128 / Confirmed Insomnia / SNOMED CT 391334098 / Confirmed Lower extremity edema / SNOMED CT 928705179 / Confirmed Morbid obesity / SNOMED CT 996109817 / Confirmed EDWIN (obstructive sleep apnea) / SNOMED CT 089477791 / Confirmed Screening for malignant neoplasm of colon / SNOMED CT 379458035 / Confirmed Seasonal allergic rhinitis / SNOMED CT 887821176 / Confirmed TIA (transient ischemic attack) / SNOMED CT 256681206 / Confirmed Resolved: At risk for falls / SNOMED CT 281105307 Problem added when Risk for Falls Careplan was initiated. Resolved due to patient discharge. Resolved: Hernia / SNOMED CT 373117458 Resolved: Potential for deficient knowledge of cerebrovascular accident (CVA) / IMO [id number] problem added based on Stroke Powerplan ordered. Resolved due to patient discharge. Resolved: Sleep apnea / SNOMED CT 959886052, Active Problems (14) BMI 39.0-39.9,adult Chronic obstructive pulmonary disease Dyslipidemia Dysphagia GERD (gastroesophageal reflux disease) Hiatal hernia HTN (hypertension) Insomnia Lower extremity edema Morbid obesity EDWIN (obstructive sleep apnea) Screening for malignant neoplasm of colon Seasonal allergic rhinitis TIA (transient ischemic (more content not included)... Normal [facility] Ambulatory Visit Summaryon 0 02-26-2024 Ambulatory [...] mg Tab) fluticasone nasal (Flonase 0.05 mg/inh [place]) losartan (losartan 25 mg Tab) multivitamin with [...] Unchanged fluticasone nasal (Flonase 0.05 mg/ inh [place]) 2 Sprays Nasal Inhalation Every day Contact [...] choosing us for your care. Kary Jernigan [facility] Gastroenterology Office/Clin ic Noteon 02-26-2024 [...] or gangrene) reports she had esophagram in [place] no egd in the past declined surgery [...] a day (at bedtime) Flonase 0.05 mg/inh [place], 2 spray(s), Nasal, Daily losartan 25 mg [...] virus vaccine, inactivated 05/03/2022 Recorded SARS-CoV-2 (COVID-19) [id number] 05/03/2022 Recorded influenza virus vaccine, inactivated 04/12/2021 [...] influenza virus vaccine, inactivated 04/16/2015 Recorded Normal [facility] Comment on above: Result Comment: Elec tronically Signed By: Yovanny OLIVO, Katie Torres\.br\Date and Time Signed: 02/26/24 09:38 EDT IntraOperative Documentson 0 10-19-2023 IntraOperative Documents [id number] 0TIFF [facility] Consenton 10-16-2023 Consent [id number]#1.00 TIFF [facility] Discharge Instructionson Discharge Instructions [id number]#[id number] TIFF [facility] Main OR Intraoperative Recor don 10-16-2023 Main OR Intraoperative Record IntraOp Document Type FT Summary Primary Physician: Pa WEBB MD Finalized Date/Time: 10/16/23 09:46:21 Pt. Name: SHEY BOSS/Sex: 1950 Female Med Rec #: [id number] Physician: Pa WEBB MD Financial #: [id number] Pt. Type: O Room/Bed: / Admit/Disch: 10/13/23 [...] Gross Role Performed Anesthesiologist Surgeon - Primary Proposal Director - Primary Double End Tenoner Operator Time In 10/13/23 08:55:00 10/13/23 08:55:00 10/13/23 08:55:00 Time Out 10/13/23 09:16:00 10/13/23 09:16:00 10/13/23 09:16:00 Procedure COLONOSCOPY(.) COLONOSCOPY(.) COLONOSCOPY(.) Comments DR BETHEA SUPERVISING Last Modified By: Naresh RN, Kimberly Infante RN, Kimberly Infante RN, Kimberly [...] and tissue Entry 1 Skin Integrity Intact, Bivins, Warm, and Skin Abnormality No Dry Outcomes [...] Head Large Press Points Checked Yes By Kimebrly Infante RN Outcomes Met? Yes Last Modified By: Remigio Infante RN (more content not included)... Normal [facility] Postoperative Documentson Postoperative Documents [id number]#[id number] TIFF [facility] Reminderson 10-16-2023 Reminders - From: Nhi Aguirre LPN To: N - Clinical; Sent: 10/16/2023 10:15:48 EDT Show up: 09/11/2033 07:00:00 EST Subject: colonoscopy recall Due Date/Time: 10/12/2033 07:00:00 EDT Reminder/Recall Patient due for screening colonoscopy 10/12/2033. Normal [facility] Colonoscopy Procedure Report on 10-13-2023 Colonoscopy [...] for screening for malignant neoplasm of rectum ([id number]-KI Z12.12, Discharge, Medical). Course: Progressing as expected. Recommendations: Repeat colonoscopy:: In 10 years. Follow-up:: if problems/questions. Diet:: Regular diet. Medication resumption:: Continue current medications. Return to activities:: After 24 hours. Education and Follow-up: Counseled: Family. [facility] Comment on above: Other Comment: Samreen dueñas Attachment - attachment storage system not supported [id number] Can be viewed in source systemMissing Attachment - attachment storage system not supported [id number] Can be viewed in source systemMissing Attachment - attachment storage system not supported [id number] Can be viewed in source systemMissing Attachment - attachment storage system not supported [id number] Can be viewed in source systemMissing Attachment - attachment storage system not supported [id number] Can be viewed in source system Consent for Treatmenton Consent for Treatment [id number]#1.00T IFF [facility] Discharge Instructionson Discharge Instructions SHEY BOSS [...] mg Tab) fluticasone nasal (Flonase 0.05 mg/inh [place]) losartan (losartan 25 mg Tab) multivitamin with [...] Pa WEBB When: Only if needed Where: [facility] Matt [place], [address] [address] [facility] (1) Medications What How Much When Instructions [...] Unchanged fluticasone nasal (Flonase 0.05 mg/ inh [place]) 2 Sprays Nasal Inhalation Every day Unchanged [...] as instru (more content not included)... [facility] Comment on above: Result Comment: Elec tronically Signed By: Marcy FORDE, Mariaelena\.maikol\Date and Time Signed: 10/13/23 09:33 EDT Inpatient Patient Summaryon 10-13-2023 Inpatient Patient Summary [address] [address] [facility] Clinical Discharge Instructions PERSON INFORMATION Name: SHEY BOSS [facility]#:[id number] PHYSICIANS Admitting Physician: Pa WEBB MD Attending Physician: Pa WEBB MD PCP: GUERO OLIVO, LATRELL Discharge Diagnosis: Encounter for colorectal cancer screening; Encounter for screening for malignant neoplasm of rectum Comment: PATIENT EDUCATION INFORMATION Instructions: Medication Leaflets: Follow up: With: Address: When: Pa TRACEY [address] [place] [address], [address], [address] [address] Business (1) , only if [...] (at bedtime). fluticasone nasal (Flonase 0.05 mg/inh [place]) 2 Sprays Nasal Inhalation every day. losartan [...] bedtime) as needed for sleep. Comment: Normal [facility] Main OR PACU I Recordon Main OR PACU I Record PACU Phase I Document Type FT Summary Primary Physician: Pa WEBB MD Finalized Date/Time: 10/13/23 09:54:27 Pt. Name: SHEY BOSS /Sex: 1950 Female Med Rec #: [id number] Physician: Pa WEBB MD Financial #: [id number] Pt. Type: O Room/Bed: / Admit/Disch: 10/13/23 [...] By: Mariaelena Vidal RN 10/13/23 09:54 Normal [facility] Main OR Preoperative Recordo n 10-13-2023 Main OR Preoperative Record Holding Area Document Type FT Summary Primary Physician: Pa WEBB MD Finalized Date/Time: 10/13/23 08:06:06 Pt. Name: SHEY BOSS Tamie/Sex: 1950 Female Med Rec #: [id number] Physician: Pa WEBB MD Financial #: [id number] Pt. Type: O Room/Bed: / Admit/Disch: 10/13/23 [...] Signed By: Olivia Domínguez 10/13/23 08:06 Normal [facility] Monitor Recordon 10-13-2023 Monitor Record [id number]#[id number] TIFF [facility] Monitor Record [id number]#1.00 TIFF [facility] Outpatient Surgery Discharge Instructionon 10-13-2023 Outpatient Surgery Discharge Instruction [place] [id number] Patient Discharge Instructions PERSON INFORMATION Name: SHEY [...] NEAREST EMERGENCY ROOM OR CALL 911 I, KARYNALPAON, have received the attached patient education materials/instructions and have verbalized understanding: May we do a follow up call? Yes No I was present when discharge instructions were given Patient Signature Date Clinican/Nurse Signature _ Date Follow up: With: Address: When: Pa TRACEY [place], [address], [facility] [address] [place] [address] Business (1) , only if needed Pharmacy Information: You may receive a survey from [employer] asking you to rate your care experience. Your feedback is important and will help us understand what we do well and how we can improve the quality of care we provide to you, your loved ones and our community. It?s an honor to serve you. Thank you for choosing [facility] HERE ARE THE MEDICATION CHANGES THAT OCCURRED [...] (at bedtime). fluticasone nasal (Flonase 0.05 mg/inh [place]) 2 Sprays Nasal Inhalation every day. losartan [...] PATIENT EDUCATION INFORMATION Instructions: Medication Leaflets: Normal [facility] Patient Education - Texton 0 [...] or gets worse throughout the day. Normal [facility] Progress Note-Physicianon Progress Note-Physician Patient: SHEY BOSS Age: 73 years Sex: Female : 1950 Associated Diagnoses: None Author: Shaji Bethea Jr., DO Postoperative Information Postoperative disposition: Postoperative disposition: Home. Optimetrix number: Optimetrix number [id number]. Anesthetic utilized: General. Physical Examination Vital Signs [...] Surgery Unit, and To home ). Normal [facility] Comment on above: Result Comment: Elec [...] m2 Documented Medications Documented Flonase 0.05 mg/inh [place]: 2 spray(s), Nasal, Daily, Refill(s) 0, Dry [...] a day (at bedtime) Flonase 0.05 mg/inh [place] 2 spray(s), Nasal, Daily losartan 25 mg [...] All Problems BMI 39.0-39.9,adult / SNOMED CT 375763714 / Confirmed Chronic obstructive pulmonary disease / SNOMED CT 55629264 / Confirmed Dyslipidemia / SNOMED CT 1299649027 / Confirmed GERD (gastroesophageal reflux disease) / SNOMED CT 542998973 / Confirmed Hiatal hernia / SNOMED CT 341054175 / Confirmed HTN (hypertension) / SNOMED CT 2829958089 / Confirmed Insomnia / SNOMED CT 538174296 / Confirmed Lower extremity edema / SNOMED CT 907362262 / Confirmed Morbid obesity / SNOMED CT 252826375 / Confirmed EDWIN (obstructive sleep apnea) / SNOMED CT 870919497 / Confirmed Screening for malignant neoplasm of colon / SNOMED CT 639946653 / Confirmed Seasonal allergic rhinitis / SNOMED CT 533075573 / Confirmed TIA (transient ischemic attack) / SNOMED CT 202942607 / Confirmed Resolved: At risk for falls / SNOMED CT 265642529 Problem added when Risk for Falls Careplan was initiated. Resolved due to patient discharge. Resolved: Hernia / SNOMED CT 603437066 Resolved: Potential for deficient knowledge of cerebrovascular accident (CVA) / IMO 97072177 problem added based on Stroke Powerplan ordered. Resolved due to patient discharge. Resolved: Sleep apnea / SNOMED CT 005871145 Histories Past Medical History: Resolved Hernia (164443641): Resolved. Sleep apnea (445773020): Resolved. Procedure history: ORIF - Open reduction of fracture of ankle with internal fixation ([id number]). Meniscal repair (692390330). Tonsillectomy (304010560). Hand tendon repaired (957477117). Social History Social & Psychosocial Habits Alcohol 09/12/2023 Frequency: 1-2 times per year Substance Abuse Comment: denies - 03/03/2021 07:19 - Carolyn Stewart RN 09/12/2023 Risk Assessment: Denies Substance Abuse Tobacco 09/12/2023 Tobacco Use: Former smoker, quit more Smokeless tobacco use: Never Type: Cigarettes . Physical Examination Vital Signs 10/13/2023 8:03 EDT Temperature Temporal Artery 36.3 DegC (more content not included)... Normal [facility] Comment on above: Result Comment: Elec tronically Signed By: Shaji Bethea Jr., DO\.br\Date and Time Signed: 10/13/23 08:04 EDT Consent for Procedure/Surger yon 09-13-2023 Consent for Procedure/Surgery [id number]#[id number] FF Normal [facility] Ambulatory Visit Summaryon 0 09-12-2023 Ambulatory [...] mg Tab) fluticasone nasal (Flonase 0.05 mg/inh [place]) losartan (losartan 25 mg Tab) multivitamin with [...] Unchanged fluticasone nasal (Flonase 0.05 mg/ inh [place]) 2 Sprays Nasal Inhalation Every day Contact [...] for choosing us for your care. Normal [facility] Provider Letteron 08-25-2023 Provider Letter (Inserted Image. Celia ble to display) August 25, 2023 SHEY BOSS [address] [place] [phone] : 1950 Dear Michelle Boss, We have been trying to reach you with no success regarding a referral from Dr Jack. It is important that you return our call upon receiving this letter so that we can set up an appointment for you in either our [place] or [place] office. Also, at the time of your call, please provide us with your current demographic and insurance information. Thank you for your prompt attention to this matter. Sincerely, [facility] [phone] [facility] Physician Referralon 024 Physician Referral [id number]#[id number] IFF Normal [facility] CT LUNG CANCER SCREENINGon 0 07-28-2022 [...] MEHNAZ SANTIAGO Date: 2022-07-28 15:[address] [facility] BNPon 02-22-2022 Natriuretic peptide B (Bld) [Mass/Vol] 108.0 pg/mL Normal <=900.[address] [facility] Comment on above: Performed By: #### B MP, BNP, HSTROPN ####[facility] B[address]ieg[address] [place] [address]Dr. Felisa Trujillo CBC AUTO DIFFon 02-22-2022 BASO # 0.0 103/ul Normal 0.0-0.1 [facility] Comment on above: Performed By: #### C BC ####[facility] [address] [place], [place] [address]Dr. Felisa Trujillo Basophils/100 WBC (Bld) 0.7 % Normal 0.2-2.[address] [facility] Comment on above: Performed By: #### C BC ####[facility] [address] [place], [place] [address]Dr. Felisa Trujillo EO # 0.1 103/ul Normal 0.0-0.[address] [facility] Comment on above: Performed By: #### C BC ####[facility] [address] [place], [place] [address]Dr. Felisa Trujillo Eosinophils/100 WBC (Bld) 1.4 % Normal 0.9-7.[address] [facility] Comment on above: Performed By: #### C BC ####[facility] [address] [place], [place] [address]Dr. Felisa Trujillo Erythrocyte distribution width (RBC) [Ratio] 13.2 % Normal 11.0-15.[address] [facility] Comment on above: Performed By: #### C BC ####[facility] [address] [place], [place] [address]Dr. Felisa Trujillo Hematocrit (Bld) [Volume fraction] 36.6 % Normal 36.0-48.0 [facility] Comment on above: Performed By: #### C BC ####[facility] [address] [place] [address]DrMichelle Trujillo Hemoglobin (Bld) [Mass/Vol] 12.7 g/dL Normal 12.0-16.0 [facility] Comment on above: Performed By: #### C BC ####[facility] Nfcrzwhzqg1035 [place] [address]DrMichelle Trujillo IG # 0.01 10e3/ul Normal 0.00-0.03 [facility] Comment on above: Performed By: #### C BC ####[facility] [address] [place], [place] [address]DrMichelle Trujillo IG % 0.2 % Normal 0.0-0.5 [facility] Comment on above: Performed By: #### C BC ####[facility] Esq[address] [place], [place] [address]DrMichelle Trujillo LYMPH # 1.0 103/ul Critically low 1.2-3.8 [facility] Comment on above: Performed By: #### C BC ####[facility] [address] [place], [place] [address]DrMichelle Trujillo Lymphocytes/100 WBC (Bld) 22.3 % Normal 20.5-60.0 [facility] Comment on above: Performed By: #### C BC ####[facility] Rrniueasdy[address] [place] [address]DrMichelle Trujillo MANUAL DIFF REQ NO Normal [facility] Comment on above: Performed By: #### C BC ####[facility] Xgkj[address]zbu3393 [place] [id number] Trujillo MCH (RBC) [Entitic mass] 31.8 pg Normal 26.7-34.0 [facility] Comment on above: Performed By: #### C BC ####[facility] [address]aceatxpzf23[address] [place] [id number] Trujillo MCHC (RBC) [Mass/Vol] 34.7 g/dL Normal 29.9-35.2 [facility] Comment on above: Performed By: #### C BC ####[facility] Sw[address]wbemms[address]42 [place] [address]DrMichelle Felisa Ronnie MCV (RBC) [Entitic vol] 91.7 fL Normal 81.0-99.0 [facility] Comment on above: Performed By: #### C BC ####[facility] Htkwyywxit4850 [place] [address]DrMichelle Trujillo MONO # 0.5 103/ul Normal 0.3-0.8 [facility] Comment on above: Performed By: #### C BC ####[facility] Rssukmyvso8676 [place] [address]DrMichelle Trujillo Monocytes/100 WBC (Bld) 11.7 % Normal 1.7-12.0 [facility] Comment on above: Performed By: #### C BC ####[facility] [address] [place], [place] [address]DrMichelle Trujillo NEUT # 2.7 103/ul Normal 1.4-6.5 [facility] Comment on above: Performed By: #### C BC ####[facility] [address] [place], [place] [address]DrMichelle Trujillo Neutrophils/100 WBC (Bld) 63.7 % Normal 43.0-75.[address] [facility] Comment on above: Performed By: #### C BC ####[facility] Gjmzxwuisy7515 [place] [address]DrMichelle Trujillo Platelet mean volume (Bld) [Entitic vol] 10.2 fL Normal 9.5-13.[address] [facility] Comment on above: Performed By: #### C BC ####[facility] Wcermrchbq5553 [place] [phone] Trujillo PLT 149 103/ul Critically low 150-450 [facility] Comment on above: Performed By: #### C BC ####[facility] Ttevemfhkd4131 [place] [phone] Trujillo RBC 3.99 106/ul Critically low 4.20-5.40 [facility] Comment on above: Performed By: #### C BC ####[facility] Zaldkshxww6774 [place] [phone] Trujillo WBC 4.3 103/ul Normal 4.0-11.0 [facility] Comment on above: Performed By: #### C BC ####[facility] Kmbymyghbm4402 [place] [phone] Trujillo Covid-19 PCR (CVDTBH)on 02-07 SARS-CoV-2 (COVID-19) RNA DUGLAS+probe Ql (Unsp spec) Detected Critically abnormal NOT DETECTED [facility] Comment on above: Result Comment: This test is not yet approved or cleared by the [place] FDA. When there are no FDA-approved or cleared tests available, and other criteria are met, FDA can make tests available under an emergency access mechanism called an Emergency Use Authorization (EUA). The EUA for this test is supported by the [place] of Health and Human Service's declaration that [...] be used). Performed By: #### C VDTBH ####[facility] Ftplydtbyd0106 [place] [address]DrMichelle Trujillo PROF CHEM 8 (BAS METB)on Anion gap [Moles/Vol] 14.9 mmol/L Normal [facility] Comment on above: Performed By: #### B MP, BNP, HSTROPN ####[facility] Gqbfyftcjc0572 [place] [address]DrMichelle Trujillo Calcium [Mass/Vol] 8.9 mg/dL Normal 8.5-10.1 [facility] Comment on above: Performed By: #### B MP, BNP, HSTROPN ####[facility] Mucguyarcm6022 [place] [address]DrMichelle Trujillo Chloride [Moles/Vol] 104 mmol/L Normal 98-107 [facility] Comment on above: Performed By: #### B MP, BNP, HSTROPN ####[facility] Hhypnivpyh[address]39 [place] [address]Dr. Felisa Trujillo CO2 [Moles/Vol] 24.0 mmol/L Normal 21.0-32.0 [facility] Comment on above: Performed By: #### B MP, BNP, HSTROPN ####[facility] Tdddsvewry3584 [place] [address]Dr. Felisa Trujillo Creatinine [Mass/Vol] 0.98 mg/dL Normal 0.55-1.02 [facility] Comment on above: Performed By: #### B MP, BNP, HSTROPN ####[facility] Wsugrcphko4981 [place] [address]Dr. Krystakun Ronnie EGFR-AF GUINEAN >60 Normal >=60 [facility] Comment on above: Performed By: #### B MP, BNP, HSTROPN ####[facility] Zkbvhygxtw4553 [place] [address]Dr. Felisa Trujillo EGFR-NON AF GUINEAN 56 mL/min/1.73m2 Critically low >=60 [facility] Comment on above: Performed By: #### B MP, BNP, HSTROPN ####[facility] Dpzwljxhdp8083 [place] [address]Dr. Felisa Trujillo Glucose [Mass/Vol] 136 mg/dL Critically high 74-106 [facility] Comment on above: Performed By: #### B MP, BNP, HSTROPN ####[facility] Fsdtwlvcyk2088 [place] [address]Dr. Felisa Trujillo Potassium [Moles/Vol] 3.9 mmol/L Normal 3.5-5.1 [facility] Comment on above: Performed By: #### B MP, BNP, HSTROPN ####[facility] Kcjtsqlhvz6863 [place] [address]Dr. Krystakun Trujillo Sodium [Moles/Vol] 139 mmol/L Normal 136-145 [facility] Comment on above: Performed By: #### B MP, BNP, HSTROPN ####[facility] Oqmodsbdjp3234 [place] [address]Dr. Felisa Trujillo Urea nitrogen [Mass/Vol] 14.0 mg/dL Normal 7.0-18.0 [facility] Comment on above: Performed By: #### B MP, BNP, HSTROPN ####[facility] Xdskcxvipx2487 [place] [address]Dr. Felisa Trujillo Urea nitrogen/Creatinine [Mass ratio] 14.3 mg/mg Normal [facility] Comment on above: Performed By: #### B MP, BNP, HSTROPN ####[facility] Yteqnndbtr[address] [place] [address]Dr. Felisa Trujillo TROPONIN, HIGH SENSITIVITYon 02-22-2022 HSTROP 5.9 pg/mL Normal 4.0-51.3 [facility] Comment on above: Result Comment: CUT- OFF POINTS HAVE BEEN ESTABLISHED BASED ON THE FOURTH UNIVERSAL DEFINITIONS OF MYOCARDIAL INFARCTION. THE UPPER REFERENCE LIMIT (URL) OF TROPONIN, DEFINED THE 99TH PERCENTILE OF cTnI DISTRIBUTION IN A REFERENCE POPULATION, HAS BEEN CONFIRMED THE DECISION THRESHOLD FOR [place] DIAGNOSIS. Performed By: #### B MP, BNP, HSTROPN ####[facility] Ywhdfdflfk6541 [place] [address]Dr. Felisa Trujillo XR CHEST 1 Von 02-22-2022 [...] MEHNAZ SANTIAGO Date: 2022-02-22 13:[address] [facility] MG MAMM SCREEN 3D RONALD CADon 11-11-2021 MG MAMM SCREEN 3D RONALD CAD Patient: SHEY BOSS Exam Date: 11/11/2021 : 1950 Gender:F Ordering : DR LATRELL JACK . Admission #: [id number] Family : Order #: [id number] CLICK HERE TO VIEW EXAM RADIOLOGY REPORT [...] lung cancer at age 46. LOCATION: [facility] BREAST COMPOSITION: Almost entirely fatty. FINDINGS: DIAGNOSTIC [...] MD on 11/11/2021 at 13:[address] [facility] BNPon 11-02-2021 Natriuretic peptide B (Bld) [Mass/Vol] 42.0 pg/mL Normal <=900.0 [facility] Comment on above: Performed By: #### H STROPN, CMP, BNP #### [facility] Laboratory [address] [place] [address] Dr. Felisa Trujillo CBC AUTO DIFFon 11-02-2021 BASO # 0.1 103/ul Normal 0.0-0.1 [facility] Comment on above: Performed By: #### C BC #### [facility] [address] [place] [address] Dr. Felisa Trujillo Basophils/100 WBC (Bld) 0.8 % Normal 0.2-2.0 [facility] Comment on above: Performed By: #### C BC #### [facility] [address] [place] [address] Dr. Felisa Trujillo EO # 0.3 103/ul Normal 0.0-0.7 [facility] Comment on above: Performed By: #### C BC #### [facility] [facility] [address] [place] [address] Dr. Felisa Trujillo Eosinophils/100 WBC (Bld) 3.9 % Normal 0.9-7.0 [facility] Comment on above: Performed By: #### C BC #### [facility] [address] [place] [address] Dr. Felisa Trujillo Erythrocyte distribution width (RBC) [Ratio] 12.7 % Normal 11.0-15.0 [facility] Comment on above: Performed By: #### C BC #### [facility] [address] [place] [address] Dr. Felisa Trujillo Hematocrit (Bld) [Volume fraction] 40.2 % Normal 36.0-48.0 [facility] Comment on above: Performed By: #### C BC #### [facility] [address] [place] [address] Dr. Felisa Trujillo Hemoglobin (Bld) [Mass/Vol] 13.6 g/dL Normal 12.0-16.0 [facility] Comment on above: Performed By: #### C BC #### [facility] [address] [place] [address] Dr. Felisa Trujillo IG # 0.02 10e3/ul Normal 0.00-0.03 [facility] Comment on above: Performed By: #### C BC #### [facility] [address] [place] [address] Dr. Felisa Trujillo IG % 0.3 % Normal 0.0-0.[address] [facility] Comment on above: Performed By: #### C BC #### [facility] [address] [place] [address] Dr. Felisa Trujillo LYMPH # 1.9 103/ul Normal 1.2-3.[address] [facility] Comment on above: Performed By: #### C BC #### [facility] [address] [place] [address] Dr. Felisa Trujillo Lymphocytes/100 WBC (Bld) 30.0 % Normal 20.5-60.0 [facility] Comment on above: Performed By: #### C BC #### [facility] [address] [place] [address] Dr. Felisa Trujillo MANUAL DIFF REQ NO Normal [facility] Comment on above: Performed By: #### C BC #### [facility] [address] [place] [address] Dr. Felisa Trujillo MCH (RBC) [Entitic mass] 31.5 pg Normal 26.7-34.0 [facility] Comment on above: Performed By: #### C BC #### [facility] [address] [place] [address] Dr. Felisa Trujillo MCHC (RBC) [Mass/Vol] 33.8 g/dL Normal 29.9-35.2 [facility] Comment on above: Performed By: #### C BC #### [facility] [address] [place] [address] Dr. Felisa Trujillo MCV (RBC) [Entitic vol] 93.1 fL Normal 81.0-99.0 [facility] Comment on above: Performed By: #### C BC #### [facility] [address] [place] [address] Dr. Felisa Trujillo MONO # 0.6 103/ul Normal 0.3-0.8 [facility] Comment on above: Performed By: #### C BC #### [facility] [address] [place] [address] Dr. Felisa Trujillo Monocytes/100 WBC (Bld) 8.5 % Normal 1.7-12.0 [facility] Comment on above: Performed By: #### C BC #### [facility] [address] [place] [address] Dr. Felisa Trujillo NEUT # 3.7 103/ul Normal 1.4-6.5 [facility] Comment on above: Performed By: #### C BC #### [facility] [address] [place] [address] Dr. Felisa Trujillo Neutrophils/100 WBC (Bld) 56.5 % Normal 43.0-75.0 [facility] Comment on above: Performed By: #### C BC #### [facility] [address] [address] [address] Felisa Trujillo Platelet mean volume (Bld) [Entitic vol] 9.9 fL Normal 9.5-13.5 [facility] Comment on above: Performed By: #### C BC #### [facility] [address] [place] [address] Dr. Felisa Trujillo PLT 193 103/ul Normal 150-[address] [facility] Comment on above: Performed By: #### C BC #### [facility] [address] [place] [address] Dr. Felisa Trujillo RBC 4.32 106/ul Normal 4.20-5.40 [facility] Comment on above: Performed By: #### C BC #### [facility] [address] [place] [address] Dr. Felisa Trujillo WBC 6.5 103/ul Normal 4.0-11.0 [facility] Comment on above: Performed By: #### C BC #### [facility] [address] [place] [address] Dr. Felisa Trujillo Covid-19 PCR ([facility])on 10-09 SARS-CoV-2 (COVID-19) RNA DUGLAS+probe Ql (Unsp spec) Not detected Normal NOT DETECTED [facility] Comment on above: Result Comment: When diagnostic [...] for this test is supported by the [place] of Health and Human Service's declaration that [...] used). Performed By: #### C VDTBH #### [facility] [address], [place] [address] Dr. Felisa Trujillo LACTATE/LACTIC ACIDon 2021 Lactate [Moles/Vol] 1.0 mmol/L Normal 0.4-2.0 [facility] Comment on above: Performed By: #### L ACT ####[facility] [address] [id number]. Felisa Trujillo PH VENOUS BLOODon 11-02-2021 PCO2 VENOUS 40.3 mmHg Normal 40.0-52.0 [facility] Comment on above: Performed By: #### P HVEN ####[facility] [address] [address]Dr. Felisa Trujillo pH VENOUS 7.431 Critically high 7.330-7.430 [facility] Comment on above: Performed By: #### P HVEN ####[facility] [address] [id number]. Felisa Trujillo PROF 14(COMP METB)on 022 Albumin [Mass/Vol] 4.1 g/dL Normal 3.4-5.0 [facility] Comment on above: Performed By: #### H STROPN, CMP, BNP ####[facility] [address] [id number]. Felisa Trujillo Albumin/Globulin [Mass ratio] 1.1 {ratio} Normal [facility] Comment on above: Performed By: #### H STROPN, CMP, BNP ####[facility] [address] [id number] Trujillo ALP [Catalytic activity/Vol] 120 U/L Critically high 46-[address] [facility] Comment on above: Performed By: #### H STROPN, CMP, BNP ####[facility] [address] [id number] Trujillo ALT [Catalytic activity/Vol] 29 U/L Normal 14-59 [facility] Comment on above: Performed By: #### H STROPN, CMP, BNP ####[facility] [address] [address]Dr. Felisa Trujillo Anion gap [Moles/Vol] 14.2 mmol/L Normal [facility] Comment on above: Performed By: #### H STROPN, CMP, BNP ####[facility] [address] [address]Dr. Felisa Trujillo AST [Catalytic activity/Vol] 24 U/L Normal 15-[address] [facility] Comment on above: Performed By: #### H STROPN, CMP, BNP ####[facility] [address] [address]Dr. Felisa Trujillo Bilirubin [Mass/Vol] 0.6 mg/dL Normal 0.2-1.0 [facility] Comment on above: Performed By: #### H STROPN, CMP, BNP ####[facility] [address] [place], [place] [address]Dr. Felisa Trujillo Calcium [Mass/Vol] 8.8 mg/dL Normal 8.5-10.1 [facility] Comment on above: Performed By: #### H STROPN, CMP, BNP ####[facility] [address] [place], [place] [address]Dr. Felisa Trujillo Chloride [Moles/Vol] 103 mmol/L Normal 98-[address] [facility] Comment on above: Performed By: #### H STROPN, CMP, BNP ####[facility] [address] [address]Dr. Felisa Trujillo CO2 [Moles/Vol] 25.3 mmol/L Normal 21.0-32.0 [facility] Comment on above: Performed By: #### H STROPN, CMP, BNP ####[facility] [address] [address]Dr. Felisa Trujillo Creatinine [Mass/Vol] 0.86 mg/dL Normal 0.55-1.02 [facility] Comment on above: Performed By: #### H STROPN, CMP, BNP ####[facility] [address] [place], [place] [address]Dr. Felisa Trujillo EGFR-AF GUINEAN >60 Normal >=60 [facility] Comment on above: Performed By: #### H STROPN, CMP, BNP ####[facility] [address] [address]Dr. Felisa Trujillo EGFR-NON AF GUINEAN >60 Normal >=[address] [facility] Comment on above: Performed By: #### H STROPN, CMP, BNP ####[facility] [address] [address]Dr. Felisa Trujillo Globulin (S) [Mass/Vol] 3.6 g/dL Normal [facility] Comment on above: Performed By: #### H STROPN, CMP, BNP ####[facility] [address] [address]Dr. Felisa Trujillo Glucose [Mass/Vol] 90 mg/dL Normal 74-106 The [facility] Comment on above: Performed By: #### H STROPN, CMP, BNP ####[facility] [address] [address]Dr. Felisa Trujillo Potassium [Moles/Vol] 3.5 mmol/L Normal 3.5-5.[address] [facility] Comment on above: Performed By: #### H STROYOAN, CMP, BNP ####[facility] [address] [address]Dr. Felisa Trujillo Protein [Mass/Vol] 7.7 g/dL Normal 6.1-8.2 [facility] Comment on above: Performed By: #### H STROPN, CMP, BNP ####[facility] [address] [address]Dr. Felisa Trujillo Sodium [Moles/Vol] 139 mmol/L Normal 136-145 [facility] Comment on above: Performed By: #### H STROPN, CMP, BNP ####[facility] [address] [address]Dr. Felisa Trujillo Urea nitrogen [Mass/Vol] 13.0 mg/dL Normal 7.0-18.[address] [facility] Comment on above: Performed By: #### H STROPN, CMP, BNP ####[facility] [address] [id number]. Felisa Trujillo Urea nitrogen/Creatinine [Mass ratio] 15.1 mg/mg Normal [facility] Comment on above: Performed By: #### H STROPN, CMP, BNP ####[facility] [address] [id number]. Felisa Trujillo PROTIMEon 11-02-2021 INR Coag (PPP) [Relative time] 0.99 {INR} Normal [facility] Comment on above: Performed By: #### P TT, PT #### [facility] [address] [address] [address] Felisa Trujillo INR GUIDELINES SEE BELOW Normal [facility] Comment on above: Result Comment: KYA RED INR: 2.0 - 3.0 CONDITIONS NOT LISTED BELOW 2.5 - 3.5 FOR PROSTHETIC HEART VALVE REPLACEMENT 2.5 - 3.5 RECURRENT THROMBOSIS Performed By: #### P TT, PT #### [facility] [address] [address] [address] Felisa Trujillo PT Coag (PPP) [Time] 10.7 s Normal 9.0-11.[address] [facility] Comment on above: Performed By: #### P TT, PT #### [facility] [address] [address] [address] Felisa Trujillo PTTon 11-02-2021 aPTT Coag (Bld) [Time] 25.9 s Normal 22.3-36.[address] [facility] Comment on above: Performed By: #### P TT, PT #### [facility] [address] [address] [address] Felisa Trujillo TROPONIN, HIGH SENSITIVITYon 11-02-2021 HSTROP 8.7 pg/mL Normal 4.0-51.[address] [facility] Comment on above: Result Comment: CUT- OFF POINTS HAVE BEEN ESTABLISHED BASED ON THE FOURTH UNIVERSAL DEFINITIONS OF MYOCARDIAL INFARCTION. THE UPPER REFERENCE LIMIT (URL) OF TROPONIN, DEFINED THE 99TH PERCENTILE OF cTnI DISTRIBUTION IN A REFERENCE POPULATION, HAS BEEN CONFIRMED THE DECISION THRESHOLD FOR [place] DIAGNOSIS. Performed By: #### H STROPN, CMP, BNP #### [facility] [address], [place] [address] Dr. Felisa Trujillo Covid-19 PCR ([facility])on SARS-CoV-2 (COVID-19) RNA DUGLAS+probe Ql (Unsp spec) Not detected Normal NOT DETECTED [facility] Comment on above: Result Comment: This test is not yet approved or cleared by the [place] FDA. When there are no FDA-approved or cleared tests available, and other criteria are met, FDA can make tests available under an emergency access mechanism called an Emergency Use Authorization (EUA). The EUA for this test is supported by the [place] of Health and Human Service's (HHS's) declaration [...] SARS-CoV-2. Performed By: #### C VDTBH #### [facility] [address], [place] [address] Dr. Felisa Trujillo XR CHEST 2 Von [...] by: MEHNAZ SANTIAGO Date: 2021-09-02 14:[address] [facility] - AP Resultson 9 Lab - AP Results [id number]#1.00OT [facility] Pathology Sendout Teston Pathology Send Out. See Report [facility] Comment on above: Order Comment: left ring finger , cyst tendon sheath Performed By: #### 2 [id number] ####[facility] (DEFAULT)[address] [place] [address] Coding Summaryon 02-08-2019 Coding Summary CODING DATE: 019 [facility] STATUS: Home PAYOR: Medicare MC APC DESCRIPTION 5112 Level 2 Musculoskeletal Procedures ADMIT DX: REASON FOR VISIT DX: M65.342 Trigger finger, left ring finger FINAL DX: PRINCIPAL: M65.342 Trigger finger, left ring finger SECONDARY: M67.442 Ganglion, left hand J44.9 Chronic obstructive pulmonary disease, unspecified PYMT PROC APC STAT DESCRIPTION DOCTOR NAME DATE 78766 5112 J1 Excision of lesion of Daquan [...] am [facility] Consent Formson 02-05-2019 Consent Forms [id number]#1.00OT [facility] Discharge Instructionson Discharge Instructions [id number]#1.00OT [facility] History and Physicalon 02-05 History and Physical [id number]#1.00OT [facility] MAGR Intraoperative Recordon 02-05-2019 MAGR Intraoperative Record MAGR Intra-Op Record Summary Primary Physician: Daquan Antunez DO Finalized Date/Time: 02/05/19 07:41:01 Pt. Name: SHEY BOSS /Sex: 1950 FEMALE Med Rec #: [id number] Physician: Daquan Antunez DO Financial #: [id number] Pt. Type: D Room/Bed: / Admit/Disch: 02/04/19 [...] Role Performed Surgeon - Primary Anesthesiologist of Proposal Director Record Time In 02/04/19 15:31:00 02/04/19 15:31:00 02/04/19 15:31:00 Time Out 02/04/19 16:08:00 02/04/19 16:08:00 02/04/19 16:08:00 Procedure Trigger Finger Release Trigger Finger Release Trigger Finger Release Last Modified By: Toshia Plascencia RN, Barbara RN Long, Barbara RN 02/04/19 16:16:05 02/04/19 16:16:05 02/04/19 16:16:05 Entry 4 Entry 5 Case Attendee Paloma Esparza Regina CST Role Performed Scrub Personnel Hose Wrapper Time In 02/04/19 15:31:00 02/04/19 15:31:00 Time [...] Modify Pick List 02/05/19 07:40 MHBLONG Modify [facility] List [facility] Medication Managementon 01-09 Medication Management [id number]#1.00OT GTIFF [facility] Provider Orderson 02-05-2019 Provider Orders [id number]#1.00OT GTIFF [facility] Anesthesia Noteon 02-04-2019 Anesthesia Note Patient: SHEY [...] Problems Chronic back pain / SNOMED CT 529047300 / Confirmed Former smoker / SNOMED CT 05454150 / Confirmed GERD (gastroesophageal reflux disease) / SNOMED CT 693802101 / Confirmed Scar tissue / SNOMED CT 125929671 / Confirmed Sleep apnea / SNOMED CT 850692475 / Confirmed Histories Family History: No family history items have been selected or recorded. Procedure history: Tonsillectomy (681028957). Epidural injection of lumbar spine using fluoroscopic guidance (1157087811). Social History Alcohol Assessment Use: Current. Beer, [...] rhythm. Review / Management Laboratory Results Plan [place] [employer]#(ASA) physical status classification: Class [...] MD [facility] Inpatient Patient Summaryon 02-04-2019 Inpatient Patient Summary [address] [address] Patient Discharge Instructions Name: SHEY BOSS : 52 Patient Address: [address] [place], [place] [address] Primary Care Provider: Name: LATRELL JACK After you are discharged if you find you have any questions, please, call [phone] ext [phone] to speak to a nurse. Discharge Diagnosis: Trigger finger Prescription Information: If you have been given a prescription for narcotics, seek immediate medical attention if you have any difficulty breathing or any sudden status changes such as confusion and sleepiness. If you or anyone you know is experiencing suicidal thoughts, mental health, alcohol and/or drug addiction problems; contact the [facility] 30/01 Crisis Hotline -text 4HFTQ to 679720. If you received any narcotics, sedation, or [...] business decisions or sign any legal documents [facility] would like to thank you for allowing us to assist you with your healthcare needs. The following includes patient education materials and information regarding your injury/illness. SHEY BOSS has been given the following list of follow-up instructions, prescriptions, and patient education materials: Follow-up Instructions With: Address: When: Daquan Antunez [address] [place] [address], [address] [place] [address] Business (2) 02/12/2019 2:00 PM With: Address: When: LATRELL JACK [address] [place], [place] [id number] Business (1) Medications During the course of [...] awake -DO NOT lift heavy objects or grades 1 thru 6 visiting teacher forcefully with the affected hand -DO [...] or concerns, please call the office at [phone] or go to the emergency room -Follow [...] 2014 [facility] MAGR Postoperative Recordon 02-04-2019 MAGR Postoperative Record MAGR Phase II Record Summary Primary Physician: Daquan Antunez DO Finalized Date/Time: 02/04/19 17:11:50 Pt. Name: SHEY BOSS/Sex: 1950 FEMALE Med Rec #: [id number] Physician: Daquan Antunez DO Financial #: [id number] Pt. Type: D Room/Bed: / Admit/Disch: 02/04/19 [...] 17:11 [facility] MAGR Preoperative Recordon 0 02-04-2019 MAGR Preoperative Record MAGR Pre-Op Record Summary Primary Physician: Daquan Antunez DO Finalized Date/Time: 02/04/19 15:37:19 Pt. Name: SHEY BOSS/Sex: 1950 FEMALE Med Rec #: [id number] Physician: Daquan Antunez DO Financial #: [id number] Pt. Type: D Room/Bed: / Admit/Disch: 02/04/19 [...] By: Toshia Plascencia RN 02/04/19 15:37 Normal [facility] Operative Report - Surgeon/P shalini 02-04-2019 Operative Report - Surgeon/Physician Procedure: Release of trigger finger left ring finger Excision of cyst left ring finger Pre Op Diagnosis: Trigger finger left ring finger Cyst left ring finger Post Op Dianosis: Same Surgeon: Dr. Renato Antunez, DO Anesthesia: Conscious sedation with local Indication [...] cc of 1% lidocaine injected locally by hi )transverse incision was made over the A1 [...] DO [facility] Patient Handouton 02-04-[address] OHARA POST OPERATIVE INSTRUCTIONS FOR FINGER SURGERY/MALLET FINGER REPAIR SURGEONS WRITTEN INSTRUTCTIONS:' -Keep your hand elevated above your elbow for the first 24 hours after surgery and apply an ice bag at intervals for the first 24 hours -Wiggle the unaffected fingers frequently while awake -DO NOT lift heavy objects or grades 1 thru 6 visiting teacher forcefully with the affected hand -DO [...] or concerns, please call the office at [phone] or go to the emergency room -Follow up as scheduled [facility] Progress Note - Nurseon 01-08 Progress Note - Nurse Spoke with pt regarding arrival time of 1145 and NPO status. Verbalized understanding. Pt instructed she will need a fast food delivery driver. Verbalized understanding. [Electronically Signed on: 02/01/2019 14:53 EDT] Kika Akers RN Remigio [Verified on: 02/01/2019 14:53 EDT] Rober Akers RNremigio Flood [facility] Coding Summaryon 01-29-2019 Coding Summary CODING DATE: [...] pm [facility] .Auto Diff 1on 01-28-2019 Auto [place] % 8 % Normal 1-12 [facility] Comment on above: Performed By: #### 7 [id number], [id number] #### [facility] (DEFAULT) [address] [place] [address] Baso Abs# 0.0 x10 Normal 0.0-0.2 [facility] Comment on above: Performed By: #### 7 [id number], [id number] #### [facility] (DEFAULT) [address] [place] [address] Basophils/100 WBC (Bld) 0.4 % Normal 0.2-2.0 [facility] Comment on above: Performed By: #### 7 [id number], [id number] #### [facility] (DEFAULT) [address] [place] [address] Eos Abs# 0.2 x10 Normal 0.0-0.4 [facility] Comment on above: Performed By: #### 7 [id number], [id number] #### [facility] (DEFAULT) [address] [place] [address] Eosinophils/100 WBC (Bld) 3.5 % Normal 0.9-4.0 [facility] Comment on above: Performed By: #### 7 [id number], [id number] #### [facility] (DEFAULT) [address] [place] [address] Lymphocytes (Bld) [#/Vol] 1.6 x10 Normal 1.3-2.9 [facility] Comment on above: Performed By: #### 7 [id number], [id number] #### [facility] (DEFAULT) [address] [place] [address] Lymphocytes/100 WBC (Bld) 32 % Normal 14-48 [facility] Comment on above: Performed By: #### 7 [id number], [id number] #### [facility] (DEFAULT) [address] [place] [address] [place] Abs# 0.4 x10 Normal 0.0-0.8 [facility] Comment on above: Performed By: #### 7 [id number], [id number] #### [facility] (DEFAULT) [address] [place] [address] Neut Abs# 2.8 x10 Normal 1.5-9.2 [facility] Comment on above: Performed By: #### 7 [id number], [id number] #### [facility] (DEFAULT) [address] [place] [address] [id number] Neutrophils/100 WBC (Bld) 56 % Normal 44-88 [facility] Comment on above: Performed By: #### 7 [id number], [id number] #### [facility] (DEFAULT) [address] [place] [address] 12122 CBC w/ Auto Diffon 9 Erythrocyte distribution width (RBC) [Ratio] 13.4 % Normal 11.5-15.0 [facility] Comment on above: Performed By: #### 7 [id number], [id number] #### [facility] (DEFAULT) [address] [place] [address] 60122 Hematocrit (Bld) [Volume fraction] 40.4 % Normal 33.7-40.4 [facility] Comment on above: Performed By: #### 7 [id number], [id number] #### [facility] (DEFAULT) [address] [place] [address] 27738 Hemoglobin (Bld) [Mass/Vol] 13.9 g/dL Normal 11.3-15.9 [facility] Comment on above: Performed By: #### 7 [id number], [id number] #### [facility] (DEFAULT) [address] [place] [address] 18510 Man Diff? Auto Normal [facility] Comment on above: Performed By: #### 7 [id number], [id number] #### [facility] (DEFAULT) [address] [place] [address] 29344 MCH (RBC) [Entitic mass] 31 pg Normal 24-34 [facility] Comment on above: Performed By: #### 7 [id number], [id number] #### [facility] (DEFAULT) [address] [place] [address] 04242 MCHC (RBC) [Mass/Vol] 34 g/dL Normal 26-37 [facility] Comment on above: Performed By: #### 7 [id number], [id number] #### [facility] (DEFAULT) [address] [place] [address] 97812 MCV (RBC) [Entitic vol] 90 fL Normal 81-100 [facility] Comment on above: Performed By: #### 7 [id number], [id number] #### [facility] (DEFAULT) [address] [place] [address] 58296 Platelet mean volume (Bld) [Entitic vol] 10.3 fL High 6.3-10.2 [facility] Comment on above: Performed By: #### 7 [id number], [id number] #### [facility] (DEFAULT) [address] [place] [address] 42984 Platelets (Bld) [#/Vol] 199 x10 Normal 138-427 [facility] Comment on above: Performed By: #### 7 [id number], [id number] #### [facility] (DEFAULT) [address] [place] [address] 47320 RBC (Bld) [#/Vol] 4.47 x10 Normal 3.70-5.30 [facility] Comment on above: Performed By: #### 7 [id number], [id number] #### [facility] (DEFAULT) [address] [place] [address] 65024 WBC (Bld) [#/Vol] 5.1 x10 Normal 3.5-10.5 [facility] Comment on above: Performed By: #### 7 [id number], [id number] #### [facility] (DEFAULT) [address] [place] [address] 15560 Vital Signs Date Time Vital Sign Value Performing Clinician Facility 05-15-2024 10:02-0500 Body height 160 cm Latrell Jack MD Work Phone: [facility] 05-15-2024 10:02-0500 Body mass index (BMI) [Ratio] 38.26 kg/m2 Latrell Jack MD Work Phone: [facility] 05-15-2024 10:02-0500 Body temperature 97.11 [degF] Latrell Jack MD Work Phone: [facility] 05-15-2024 10:02-0500 Body weight 97.98 kg Latrell Jack MD Work Phone: [facility] 05-15-2024 10:02-0500 Diastolic blood pressure 80 mm[Hg] Latrell Jack MD Work Phone: [facility] 05-15-2024 10:02-0500 Heart rate 78 /min Latrell Jack MD Work Phone: [facility] 05-15-2024 10:02-0500 Respiratory rate 22 /min Latrell Jack MD Work Phone: [facility] 05-15-2024 10:02-0500 SaO2% (BldA) [Mass fraction] 97 % Latrell Jack MD Work Phone: [facility] 05-15-2024 10:02-0500 Systolic blood pressure 148 mm[Hg] Latrell Jack MD Work Phone: [facility] 04-29-2024 10:55-0400 Body height 152.4 cm Xavier [...] 90 /min Xavier Boyd MD Work Phone: [facility] 04-29-2024 10:55-0400 Systolic blood pressure 144 mm[Hg] Xavier Boyd MD Work Phone: [facility] 03-20-2024 13:23-0400 Diastolic blood pressure 81 mm[Hg] Leos Sarmini [facility] 03-20-2024 13:23-0400 Heart rate 66 /min Leos Sarmini [facility] 03-20-2024 13:23-0400 Mean blood pressure 112 mm[Hg] Leos Sarmini [facility] 03-20-2024 13:23-0400 Respiratory rate 15 /min Leos Sarmini [facility] 03-20-2024 13:23-0400 SaO2% (BldA) [Mass fraction] 94 % Leos Sarmini [facility] 03-20-2024 13:23-0400 Systolic blood pressure 173 mm[Hg] Leos Sarmini [facility] 03-20-2024 13:15-0400 Diastolic blood pressure 78 mm[Hg] Leos Sarmini [facility] 03-20-2024 13:15-0400 Heart rate 64 /min Leos Sarmini [facility] 03-20-2024 13:15-0400 Mean blood pressure 105 mm[Hg] Leos Sarmini [facility] 03-20-2024 13:15-0400 Respiratory rate 13 /min Leos Sarmini [facility] 03-20-2024 13:15-0400 SaO2% (BldA) [Mass fraction] 96 % Leos Sarmini [facility] 03-20-2024 13:15-0400 Systolic blood pressure 159 mm[Hg] Leos Sarmini [facility] 03-20-2024 13:05-0400 Diastolic blood pressure 76 mm[Hg] Leos Sarmini [facility] 03-20-2024 13:05-0400 Heart rate 64 /min Leos Sarmini [facility] 03-20-2024 13:05-0400 Mean blood pressure 99 mm[Hg] Leos Sarmini [facility] 03-20-2024 13:05-0400 Respiratory rate 12 /min Leos Sarmini [facility] 03-20-2024 13:05-0400 SaO2% (BldA) [Mass fraction] 96 % Leos Sarmini [facility] 03-20-2024 13:05-0400 Systolic blood pressure 145 mm[Hg] Leos Sarmini [facility] 03-20-2024 12:58-0400 Body temperature 97.16 [degF] Leos Sarmini [facility] 03-20-2024 12:50-0400 Respiratory rate 15 /min Leos Sarmini [facility] 03-20-2024 12:45-0400 Respiratory rate 18 /min Leos Sarmini [facility] 03-20-2024 11:14-0400 Blood Pressure Location Leos Sarmini [facility] 03-20-2024 11:14-0400 Body temperature 97.7 [degF] Leos Sarmini [facility] 03-20-2024 11:14-0400 Respiratory rate 18 /min Leos Sarmini [facility] 02-26-2024 09:12-0400 Blood Pressure Location Leos Sarmini [facility] 02-26-2024 09:12-0400 Diastolic blood pressure 81 mm[Hg] Leos Sarmini [facility] 02-26-2024 09:12-0400 Heart rate 66 /min Leos Sarmini [facility] 02-26-2024 09:12-0400 Respiratory rate 16 /min Leos Sarmini [facility] 02-26-2024 09:12-0400 Systolic blood pressure 131 mm[Hg] Katie Hairston [facility] 10-13-2023 09:42-0400 Diastolic blood pressure 80 mm[Hg] Pa NILL [facility] 10-13-2023 09:42-0400 Heart rate 69 /min Pa NILL [facility] 10-13-2023 09:42-0400 Mean blood pressure 102 mm[Hg] Pa NILL [facility] 10-13-2023 09:42-0400 Respiratory rate 15 /min Pa NILL [facility] 10-13-2023 09:42-0400 SaO2% (BldA) [Mass fraction] 97 % Pa NILL [facility] 10-13-2023 09:42-0400 Systolic blood pressure 146 mm[Hg] Pa NILL [facility] 10-13-2023 09:32-0400 Diastolic blood pressure 76 mm[Hg] Pa NILL [facility] 10-13-2023 09:32-0400 Heart rate 67 /min Pa NILL [facility] 10-13-2023 09:32-0400 Mean blood pressure 94 mm[Hg] Pa NILL [facility] 10-13-2023 09:32-0400 Respiratory rate 20 /min Pa NILL [facility] 10-13-2023 09:32-0400 SaO2% (BldA) [Mass fraction] 95 % Pa NILL [facility] 10-13-2023 09:32-0400 Systolic blood pressure 129 mm[Hg] Pa NILL [facility] 10-13-2023 09:27-0400 Diastolic blood pressure 71 mm[Hg] Pa NILL [facility] 10-13-2023 09:27-0400 Heart rate 70 /min Pa NILL [facility] 10-13-2023 09:27-0400 Mean blood pressure 92 mm[Hg] Pa NILL [facility] 10-13-2023 09:27-0400 Respiratory rate 15 /min Pa NILL [facility] 10-13-2023 09:27-0400 SaO2% (BldA) [Mass fraction] 96 % Pa NILL [facility] 10-13-2023 09:27-0400 Systolic blood pressure 134 mm[Hg] Pa NILL [facility] 10-13-2023 09:17-0400 Body temperature 97.16 [degF] Pa NILL [facility] 10-13-2023 09:10-0400 Respiratory rate 16 /min Pa NILL [facility] 10-13-2023 09:05-0400 Respiratory rate 16 /min Pa NILL [facility] 10-13-2023 08:03-0400 Body temperature 97.34 [degF] Pa NILL [facility] 08-11-2023 09:53-0500 Body height 160 cm Latrell Jack MD Work Phone: [facility] 08-11-2023 09:53-0500 Body mass index (BMI) [Ratio] 40.39 kg/m2 Latrell Jack MD Work Phone: [facility] 08-11-2023 09:53-0500 Body temperature 97.11 [degF] Latrell Jack MD Work Phone: [facility] 08-11-2023 09:53-0500 Body weight 103.42 kg Latrell Jack MD Work Phone: [facility] 08-11-2023 09:53-0500 Diastolic blood pressure 70 mm[Hg] Latrell Jack MD Work Phone: [facility] 08-11-2023 09:53-0500 Heart rate 94 /min Latrell Jack MD Work Phone: [facility] 08-11-2023 09:53-0500 SaO2% (BldA) [Mass fraction] 97 % Latrell Jack MD Work Phone: [facility] 08-11-2023 09:53-0500 Systolic blood pressure 140 mm[Hg] Latrell Jack MD Work Phone: [facility] Healthcare Encounters Encounter Date Encounter Type Care Provider Facility Start: 06-13-2024 End: 06-13-2024 Telephone encounter Latrell Jack MD Work Phone: [facility] Comment on above: Medication Question Start: 06-10-2024 End: 06-10-2024 ambulatory Talat Arguello MD Facility:[facility] Start: 05-30-2024 End: 05-30-2024 ambulatory SANDRA ARCOS Not Available Start: 05-30-2024 End: 05-30-2024 Bamboo flowsheet Sandra Arcos [employer] Work Phone: [facility] Start: 05-30-2024 End: 05-30-2024 Bamboo flowsheet Sandra Arcos [employer] Work Phone: [facility] Start: 05-27-2024 End: 05-27-2024 ambulatory Talat Arguello MD Facility:[facility] Start: 05-15-2024 End: 05-15-2024 Office outpatient visit 25 minutes Latrell Jack MD Work Phone: [facility] Comment on above: Essential hypertensi on, benign [...] 05-06-2024 End: 05-06-2024 ambulatory Talat Arguello MD Facility: [facility] Start: 05-04-2024 End: 05-06-2024 ambulatory Xavier Boyd MD Work Phone: [facility] Comment on above: 07.24.24 Cure (Lap P araesophageal Hernia Repair/EGD 4 hours los 1) Start: 05-04-2024 End: 05-06-2024 Preprocedural examination done Xavier Boyd MD Work Phone: [facility] Start: 04-29-2024 End: 04-29-2024 ambulatory XAVIER BOYD Facility:[facility] Start: 04-29-2024 End: 04-29-2024 Office outpatient new 45 minutes Xavier Boyd MD Work Phone: General Surgery Comment on above: Paraesophageal herni a (Primary Dx) Start: 04-22-2024 End: 04-22-2024 Telephone encounter Ashlie Calderon MA General Surgery Start: 04-15-2024 End: 04-15-2024 ambulatory Talat Arguello MD Facility: [facility] Start: 04-11-2024 End: 04-11-2024 Patient encounter procedure Mao Morrow PhD Work Phone: [facility] Comment on above: Memory loss (Primary Dx); Word finding difficulty; EDWIN on CPAP; Other insomnia; Other chronic pain; Generalized anxiety disorder (CMS/HCC); Severe episode of recurrent major depressive disorder, without psychotic features (HCC) ([facility]/HCC) Start: 04-11-2024 End: 04-11-2024 ambulatory SANDRA ARCOS Not Available Start: 03-26-2024 End: 03-26-2024 Patient encounter procedure Mao Morrow PhD Work Phone: [facility] Comment on above: Memory loss (Primary Dx); Word finding difficulty; EDWIN on CPAP; Other insomnia; Other chronic pain; Generalized anxiety disorder (CMS/HCC) Start: 03-26-2024 End: 03-26-2024 ambulatory MAO MORROW Not Available Start: 03-26-2024 End: 03-26-2024 Bamboo flowsheet Mao Morrow PhD Work Phone: [facility] Start: 03-26-2024 End: 03-26-2024 Bambopaco flowsheet Mao Morrow PhD Work Phone: [facility] Start: 03-26-2024 End: 03-26-2024 ambulatory Leos Talal Sarmini [facility] Start: 03-26-2024 End: 03-26-2024 Patient encounter procedure Leos Talal Sarmini [facility] Start: 03-25-2024 End: 03-25-2024 ambulatory DIOMEDES AMILCAR Not Available Start: 03-20-2024 End: 03-20-2024 ambulatory Leos Talal Sarmini [facility] Start: 03-20-2024 End: 03-20-2024 Patient encounter procedure Leos Talal Sarmini [facility] Start: 03-07-2024 End: 03-07-2024 ambulatory DIOMEDES AMILCAR Not Available Start: 02-26-2024 End: 02-26-2024 ambulatory Leos Talal Sarmini Facility:[facility] Start: 02-26-2024 End: 02-26-2024 Patient encounter procedure Katie Hairston [facility] Start: 02-13-2024 ambulatory Pa NILL Facility:[facility] Start: 02-09-2024 End: 02-09-2024 ambulatory LATRELL JACK Not Available Start: 10-13-2023 End: 10-13-2023 ambulatory Pa R NILL Facility[facility] Start: 10-13-2023 End: 10-13-2023 Patient encounter procedure Pa R NILL [facility] Start: 09-12-2023 End: 09-12-2023 ambulatory Pa R NILL Facility: [facility] Start: 09-05-2023 ambulatory Pa NILL [facility] Start: 08-11-2023 Bamboo flowsheet Latrell Jack MD [...] 07-28-2022 End: 07-29-[address] LATRELL JACK Facility: Start: 02-22-2022 End: 02-22-[address] SHANKAR DANIEL Facility:[facility] Start: 11-11-2021 End: 11-12-[address] LATRELL JACK Facility:[facility] Start: 11-02-2021 End: 11-02-[address] SHANKAR DANIEL Facility:[facility] Start: 09-10-2021 End: 09-10-[address] WILLARD ANAND Facility:[facility] Start: 09-09-2021 Encounter for prepro cedural laboratory examination [facility] Start: 09-07-2021 End: 09-07-[address] LATRELL JACK Facility:[facility] Start: 09-07-2021 End: 09-07-2021 Encounter for preprocedural laboratory examination DR LATRELL JACK Facility:[facility] Start: 09-03-2021 Encounter for prepro cedural cardiovascular examination [facility] Start: 09-02-2021 End: 09-03-[address] LATRELL [...] Screening for malign ant neoplasm of colon [facility] Start: 09-21-2026 RSV Vaccine (1 - 1-d ose 75+ series) RSV Vaccine (1 - 1-dose 75+ series) [facility] Start: 11-27-2024 Screening for malign ant neoplasm of breast Mammogram [facility] Start: 09-26-2024 End: 09-26-2024 Patient encounter procedure 09/26/2024 1:00 PM EDT Office Visit [facility] [address] [place] [address] Sandra Arcos NP [address] [place], [place] [facility] Start: 08-16-2024 End: 08-16-2024 Patient encounter procedure 08/16/2024 9:00 AM EST Office Visit [facility] [address] [place] [phone] Latrell Jack MD [address] [place] [phone] [facility] Start: 07-24-2024 Subsequent hospital visit by physician 07/24/2024 Hospital Encounter Admitting [address] [place] [address] Xavier Boyd MD [address] [place] [address] Preoperative examination [Z01.818], Paraesophageal hernia [K44.9] Admitting [...] Start: 05-30-2024 End: 05-30-2024 Patient encounter procedure [facility] Comment on above: Arrived Start: 05-15-2024 End: 05-15-2024 Patient encounter procedure 05/15/2024 10:00 AM EST Office Visit [facility] [address] [place] [address] Latrell Jack MD [address] [place] [address] [facility] Start: 04-29-2024 End: 04-29-2024 Patient encounter procedure 04/29/2024 11:00 AM EDT Office Visit General Surgery [address] [address] Xavier Boyd MD [address] [place] [address] Hiatal Hernia General Surgery Comment on above: Hiatal Hernia Start: 04-11-2024 End: 04-11-2024 Patient encounter procedure 04/11/2024 9:00 AM EDT Office Visit [facility] [address] [address] [place] [phone] [facility] Start: 03-26-2024 End: 03-26-2024 Patient encounter procedure 03/26/2024 2:30 PM EDT Office Visit [facility] [address] [address] [place] [phone] Mao Morrow, PhD [address] [place] [address] Arrived [facility] Comment on above: [facility] Start: 03-10-2024 Covid-19 Vaccine ( season) Covid-19 Vaccine ( season) [facility] Start: 03-10-2024 Covid-19 Vaccine ( season) Covid-19 Vaccine ( season) [facility] Start: 03-10-2024 Influenza vaccination Influenza Vacc ine (#1) [facility] Start: 02-09-2024 End: 02-09-2024 Patient encounter procedure 02/09/2024 9:45 AM EDT Office Visit [facility] [address] [place] [phone] Latrell Jack MD [address] [place] [phone] [facility] Start: 08-11-2023 End: 08-11-2024 Basic metabolic 1998 panel - Serum or Plasma Basic metabolic panel Lab Routine Encounter for long-term (current) use of medications Expected: 08/11/2023 (Approximate), Expires: 08/11/2024 [facility] Comment on above: Expected: 08/11/2023 (Approximate), Expires: 08/11/2024 Start: 08-11-2023 End: 08-11-2024 CBC W Auto Differential panel - Blood CBC and differential Lab Routine Encounter for long-term (current) use of medications Expected: 08/11/2023 (Approximate), Expires: 08/11/2024 [facility] Comment on above: Expected: 08/11/2023 (Approximate), Expires: 08/11/2024 Start: 08-11-2023 End: 08-11-2024 Hemoglobin A1c measurement Hemoglobin A1c Lab Routine Morbid obesity due to excess calories (CMS/HCC) Expected: 08/11/2023 (Approximate), Expires: 08/11/2024 [facility] Work Phone: Comment on above: Expected: 08/11/2023 (Approximate), Expires: 08/11/2024 Start: 08-11-2023 End: 08-11-2024 Hepatic function 2000 panel - Serum or Plasma Hepatic function panel Lab Routine Encounter for long-term (current) use of medications Expected: 08/11/2023 (Approximate), Expires: 08/11/2024 [facility] Comment on above: Expected: 08/11/2023 (Approximate), Expires: 08/11/2024 Start: 08-11-2023 End: 08-11-2024 Lipid 1996 panel - Serum or Plasma Lipid panel Lab Routine Dyslipidemia (CMS/HCC) Expected: 08/11/2023 (Approximate), Expires: 08/11/2024 [facility] Comment on above: Expected: 08/11/2023 (Approximate), Expires: 08/11/2024 Start: 08-11-2023 End: 08-11-2024 Thyrotropin [Units/volume] in Serum or Plasma TSH Lab Routine Morbid obesity due to excess calories (CMS/HCC) Expected: 08/11/2023 (Approximate), Expires: 08/11/2024 [facility] Comment on above: Expected: 08/11/2023 (Approximate), Expires: 08/11/2024 Start: 08-11-2023 End: 08-11-2023 Patient encounter procedure 08/11/2023 9:45 AM EST Office Visit [facility] [address] [place] [phone] Latrell Jack MD [address] [place] [address] Arrived [facility] Comment on above: Arrived Start: 07-10-2023 Advance Directive Discussion Advance Directive Discussion [facility] Start: 03-10-2023 Influenza vaccination Influenza Vacc ine (#1) [facility] Start: 09-21-2016 Screening for osteoporosis Bone Density Screening [facility] Start: 09-21-2001 Shingrix Vaccine (1 of 2) Shingrix Vaccine (1 of 2) [facility] Start: 09-21-1996 Diabetes Screening Diabetes Screenin g [facility] Start: 09-21-1996 Lipid panel Lipid Screening [facility] Start: 09-21-1996 Screening for malign ant neoplasm of colon [facility] Start: 1991 Screening for malign ant neoplasm of breast [facility] Start: 09-21-1970 Urine microalbumin profile DTaP,Tdap,Td Vaccine (1 - Tdap) [facility] Start: 09-21-1969 Anxiety Screening Anxiety Screening [facility] Start: 09-21-1969 Depression Screening Depression Scre ening [facility] Start: 09-21-1969 Hepatitis C screening Hepatitis C Sc reening [facility] Start: 1950 Medicare Annual Well ness (AWV) Medicare Annual Wellness (AWV) [facility] Start: 1950 Screening for malign ant neoplasm of colon [facility] End: 05-04-2025 ECG COMPLETE ECG COMPLETE ECG [...] Routine Preoperative examination Paraesophageal hernia Ordered: 05/06/2024 [facility] Work Phone: Comment on above: Ordered: 05/06/2024 Immunizations Immunization Date Immunization Notes Care Provider Fa cility 04-09-2023 influenza virus vacc ine, unspecified formulation Pa WEBB [facility] 05-03-2022 SARS-CoV-2 (COVID-19 ) [id number] Pa WEBB [facility] 05-03-2022 influenza virus vacc ine, unspecified formulation Latrell Jack MD Work Phone: [facility] 11-25-2021 pneumococcal conjuga te vaccine, 13 valent Mao Morrow PhD Work Phone: [facility] 04-12-2021 influenza virus vacc ine, unspecified formulation Leos Sarmini [facility] 04-12-2021 SARS-CoV-2 (COVID-19 ) mRNA BNT-162b2 vax Pa WEBB [facility] Comment on above: Result Comment: 2023: [id number] 09-14-2020 SARS-CoV-2 (COVID-19 ) mRNA BNT-162b2 vax Pa WEBB [facility] Comment on above: Result Comment: 2023: [id number] 08-27-2020 SARS-CoV-2 (COVID-19 ) mRNA BNT-162b2 vax Pa WEBB [facility] Comment on above: Result Comment: 2023: [id number] 06-16-2020 influenza virus vacc ine, unspecified formulation Leos Sarmini [facility] 05-16-2019 influenza virus vacc ine, unspecified formulation Leos Sarmini [facility] 05-16-2019 pneumococcal polysaccharide vaccine, 23 valent Leos Sarmini [facility] 05-12-2018 influenza virus vacc ine, unspecified formulation Leos Sarmini [facility] 01-31-2018 pneumococcal conjuga te vaccine, 13 valent Leos Sarmini [facility] 05-10-2016 influenza virus vacc ine, unspecified formulation Leos Sarmini [facility] 04-16-2015 influenza virus vacc ine, unspecified formulation Leos Sarmini [facility] Payers Date Payer Category Payer Private Health Insurance [id number] 2016 Medicare [id number] 2016 Unknown 1958 Medicare [id number] 1958 Private Health Insurance [id number] 1950 Unknown [id number] [id number] 1950 Unknown [id number] 2.16.84 [id number] 1950 Unknown [id number] 2.16.84 [id number] 1950 Unknown [id number] 2.16.84 0.1.155764.3.579.2.593 1950 Unknown [id number] 2.16.84 0.1.317412.3.579.2.593 1950 Unknown [id number] 2.16.84 0.1.605961.3.579.2.593 1950 Unknown [id number] 2.16.84 0.1.532169.3.579.2.593 1950 Unknown [id number] 2.16.8 40.1.138970.3.579.2.727 1950 Unknown [id number] 2.16.8 40.1.195271.3.579.2.727 1950 Unknown [id number] 2.16.8 40.1.317121.3.579.2.727 1950 Unknown [id number] 2.16.8 40.1.276221.3.579.2.727 1950 Unknown [id number] 2.16.8 40.1.365764.3.579.2.727 1950 Unknown [id number] 2.16.84 0.1.162931.3.579.2.1259 1950 Unknown [id number] 2.16.84 0.1.140839.3.579.2.1259 1950 Unknown [id number] 2.16.84 0.1.551962.3.579.2.1259 1950 Unknown [id number] 2.16.84 0.1.653140.3.579.2.1259 1950 Unknown [id number] 2.16.84 0.1.492201.3.579.2.1259 1950 Unknown [id number] 2.16.84 0.1.927767.3.579.2.1259 1950 Unknown [id number] 2.16.84 0.1.968627.3.579.2.1259 1950 Unknown [id number] 2.16.84 0.1.755225.3.579.2.1259 1950 Unknown [id number] 2.16. 840.1.052042.3.579.2.196 1950 Unknown [id number] 2.16. 840.1.659935.3.579.2.196 1950 Unknown [id number] 2.16. 840.1.072943.3.579.2.196 1950 Unknown [id number] 2.16. 840.1.876840.3.579.2.196 Social History Date Type Detail Facility Start: 08-05-2023 End: 03-07-2024 Tobacco smoking status NHIS Ex-smoker [facility] Start: 07-10-1967 End: 01-08-2012 History of tobacco use Current smoker [facility] Start: 07-10-1967 End: 01-08-2012 History of tobacco use Cigarette Smoker [facility] Start: 08-05-2023 End: 02-02-2024 Cigarettes smoked current (pack per day) - Reported 1 [facility] Start: 08-05-2023 End: 02-02-2024 Tobacco use panel [facility] Start: 1950 Sex Assigned At Not on file [facility] Start: 08-11-2023 End: 03-07-2024 Tobacco use and exposure Smokeless tobacco non-user [facility] Tobacco smoking status Never [facility] [place] Start: 03-07-2024 End: 05-30-2024 Alcoholic beverage intake Current drinker of alcohol [...] per day [facility] Tobacco smoking stat [facility] Tobacco smoking consumption unknown [facility] Start: 04-23-2024 Gender identity Identifies as female gender (finding) [facility] Functional Status Date Assessment Result Facility 03-20-2024 Functional Status N/A [facility] 02-26-2024 Functional Status N/A [facility] 10-13-2023 Functional Status N/A [facility] Clinical Notes 09-10-2021 to 06-13-2024 Telephone Encounter - Cassy Donnelly - 06/13/2024 11:39 AM ESTTelephone Encounter - Cassy Donnelly - 06/13/2024 11:39 AM Bryon Jack MD - 05/15/2024 10:35 AM ESTRadiology Note Date & Type Note Facility 06-13-2024 Telephone encounter Note Patient would like her Losartan 50 mg and Pantoprazole 40 mg changed to [facility] instead of [facility] 06-13-2024 Miscellaneous Notes Patient would like her Losartan 50 mg and Pantoprazole 40 mg changed to [facility] instead of [facility] documented in this encounter [facility] 05-15-2024 History of Present illness Narrative Associated [...] surgery 07/24. Associated Problem(s): Essential hypertension, benign ([facility]) BP improved but still elevated and increase losartan. Continue to monitor PRN. Associated Problem(s): COPD (chronic obstructive pulmonary disease) ([facility]) Symptoms stable and continue spiriva. Use albuterol PRN. Associated Problem(s): Class 2 severe obesity due to excess calories with serious comorbidity and body mass index (BMI) of 38.0 to 38.9 in adult ([facility]) Weight loss indicated. Images from the [...] Weight loss indicated. documented in this encounter [facility] 04-29-2024 Note HNO ID: [id number] Author: XAVIER BOYD MD Service: ? Author [...] blinded, parallel group trial IRB NO.: #[id number] STEEL ENGRAVER: Pa Prakash MD COORDINATOR/Research Nurse/Career Services Coordinator: Abdelrahman He MD Phone/email: [phone], [email or web address] Consenting was performed in person prior to [...] CRITERIA Yes No 1. The patient lacks Gabonese language fluency or cannot understand the consent form/study procedures [] [x] 2. The patient is [] [x] 3. The patient has a BMI >45 [] [x] 4. The patient has undergone previous hiatal hernia repair [] [x] 5. The patient will undergo paraesophageal hernia repair with a concurrent bariatric procedure to reduce stomach volume [] [x] [facility] 04-29-2024 History of Present illness Narrative [...] blinded, parallel group trial IRB NO.: #[id number] STEEL ENGRAVER: Pa Prakash MD COORDINATOR/Research Nurse/Career Services Coordinator: Abdelrahman He MD Phone/email: [phone], [email or web address] Consenting was performed in person prior [...] CRITERIA Yes No 1. The patient lacks Gabonese language fluency or cannot understand the consent form/study procedures [] [x] 2. The patient is [] [x] 3. The patient has a BMI >45 [] [x] 4. The patient has undergone previous hiatal hernia repair [] [x] 5. The patient will undergo paraesophageal hernia repair with a concurrent bariatric procedure to reduce stomach volume [] [x] [facility] - HISTORY [...] UGI reviewed and uploaded. Large Type III [facility]. ASSESSMENT/PLAN: chani Boss is a [...] [facility] 04-29-2024 Note HNO ID: [id number] Author: YAN MOSER, ? Service: ? Author Type: Physician Type: Progress Notes Filed: 04/29/2024 12:10 Note Text: [facility] - HISTORY [...] Consents obtained Yan Moser MD General Surgery [facility] 04-29-2024 Nurse Note What is the [...] No history of alcohol/substance abuse. Reformed smoker. [place] language Gabonese. Completed high school education as well as some college. Described self as a C student. 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 Motor/Speed of Processing: Left-handed. Cardiac Rehab Nurse strength 31st %ile with left-hand, 18th %ile [...] Learning of a word list 58th %ile (2-4-75-10-12), delayed recall 50th %ile. Recognition discriminability 69th [...] Please contact me with any questions at [phone]. documented in this encounter [facility] 03-27-2024 Note Endoscopic Procedure Report - Other [...] 1 tab, Oral, Daily Flonase 0.05 mg/inh [place]: 2 spray(s), Nasal, Daily, Refill(s) 0, Dry [...] a day (at bedtime) Flonase 0.05 mg/inh [place] 2 spray(s), Nasal, Daily losartan 25 mg [...] All Problems HTN (hypertension) / SNOMED CT 6485859330 / Confirmed Chronic obstructive pulmonary disease / SNOMED CT 08437522 / Confirmed Insomnia / SNOMED CT 060745877 / Confirmed Seasonal allergic rhinitis / SNOMED CT 712977604 / Confirmed Dyslipidemia / SNOMED CT 5793819018 / Confirmed BMI 39.0-39.9,adult / SNOMED CT 245051618 / Confirmed Morbid obesity / SNOMED CT 001627970 / Confirmed GERD (gastroesophageal reflux disease) / SNOMED CT 563541733 / Confirmed Hiatal hernia / SNOMED CT 702083918 / Confirmed EDWIN (obstructive sleep apnea) / SNOMED CT 965981935 / Confirmed Lower extremity edema / SNOMED CT 696924548 / Confirmed TIA (transient ischemic attack) / SNOMED CT 163758788 / Confirmed Screening for malignant neoplasm of colon / SNOMED CT 885665200 / Confirmed Dysphagia / SNOMED CT 70422423 / Confirmed Histories Past Medical History: Resolved Hernia (917267392): Resolved. Sleep apnea (170537470): Resolved. Family History: Father Alcoholism Primary malignant neoplasm of lung COPD Mother Cardiac arrest Alzheimer's disease Procedure history: Colonoscopy (723485542) on 10/13/2023 at 73 Years. ORIF - Open reduction of fracture of ankle with internal fixation ([id number]). Meniscal repair (686537876). Tonsillectomy (313082973). Hand tendon repaired (964869900). Social History Social & Psychosocial Habits Alcohol [...] 11:14) Heart Rate Monitored 72 bpm (MAR 20:14) SBP H 173 mmHg (MAR 20:14) DBP 72 mmHg (MAR 20:14) Weight 100 kg (MAR 20:14) General: in Nad Abdomen: Soft, NTND Impression and Plan Impression: DYSPHAGIA Plan: -EGD [facility] Comment on above: Result Comment: mary anne g folder Electronically Signed By: Yovnany OLIVO, Katie Torres\.br\Date and Time Signed: 03/20/24 12:47 EDT 03-26-2024 History of Present illness Narrative Images from the original note were not included. Mao Morrow, PhD NEUROBEHAVIORAL STATUS EXAMINATION Shey Boss is a 73 y.o. female referred for neuropsychological evaluation to assist with facilitating and informing medical differential diagnosis and clinical decision-making. The following information was obtained during an interview with the patient, as well as review of available records. PRESENTING PROBLEM AND HISTORY Progressive decline in memory of the past years such as forgetting conversations, general daily forgetfulness, [...] No history of alcohol/substance abuse. Reformed smoker. [place] language Gabonese. Completed high school education as well as some college. Describes itself as a C student. 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 Single, never , no children. Resides with her niece and boyfriend. MEDICAL HISTORY/MEDICATION: Past Medical History: Diagnosis Date Anxiety 08/2023 At high risk for falls Benign essential hypertension ([facility]/HCC) Bilateral primary osteoarthritis of knee Chronic bilateral low back pain with left-sided sciatica Chronic insomnia COPD, mild ([facility]/HCC) Dyslipidemia ([facility]) Edema of extremities Encounter for long-term (current) use of medications Fracture of distal end of fibula, sequela Ganglion cyst of flexor tendon sheath of finger, left Hiatal hernia with gastroesophageal reflux disease without esophagitis Memory loss Morbid obesity with body mass index (BMI) of 40.0 to 49.9 ([facility]) EDWIN (obstructive sleep apnea) Osteopenia of lumbar spine Painful orthopaedic hardware (HCC) ([facility]) Postmenopausal Seasonal allergic rhinitis due to pollen Sleep apnea TIA (transient ischemic attack) MEDICATIONS: Current Outpatient Medications Medication Instructions albuterol [...] CR (AMBIEN CR) 12.5 mg, Oral, Nightly INITIAL IMPRESSION AND PLAN: Memory loss, word-finding difficulty, EDWIN (on CPAP), insomnia, chronic pain, and anxiety: The patient will be scheduled for neuropsychological assessment, which will include tests for memory, reasoning, language, problem-solving, attention, and mood. Thank you for allowing me to participate in the care of this individual. Please contact me with any questions at [phone]. documented in this encounter [facility] 03-20-2024 Hospital Discharge instructions Patient Education 03/20/2024 [...] Follow these instructions at home: Medicines Take bbmk-bmj-yfiftkj and prescription medicines only as told by [...] or drinks. ?Garlic or onions. ?Spicy foods. ?Saunders fruits. ?Tomato-based foods. ?Fatty or fried foods. [...] provider. Document Revised: 01/09/2023 Document Reviewed: 01/09/2023 Charlie App Patient Education 2023 [employer]. 03/20/2024 13:07:56 Gastritis, Adult, Lqkq-ei-Ahoj Gastritis, Adult Gastritis is irritation and swelling [...] Follow these instructions at home: Medicines Take tphn-nvd-bacgpbe and prescription medicines only as told by [...] provider. Document Revised: 10/30/2021 Document Reviewed: 10/30/2021 [employer] Patient Education 2023 [employer]. 03/20/2024 13:07:48 Hiatal Hernia Hiatal Hernia [...] reduce GERD symptoms. Medicines. These may include: ?Iwzb-gqp-abmjvbv antacids. ?Medicines that make your stomach empty [...] may include: ?Fatty foods, like fried foods. ?[place] fruits, like oranges or lemon. ?Other foods [...] Do not drink alcohol. General instructions Take dsot-chh-gzcrjuh and prescription medicines only as told by [...] provider. Document Revised: 08/23/2022 Document Reviewed: 08/23/2022 [employer] Patient Education 2023 [employer]. 03/20/2024 13:07:46 Endoscopy, Care After Procedure [facility] [place] Endoscopy Care After Procedure Please [...] Document Re-Released: 12/18/2006 ExitCare Patient Information 2009 [employer]. Follow Up Care 02/26/2024 09:52:05 With:Yovanny OLIVO, SENAIT Sifuentes, [facility] Address: When: Unknown Comments:Call for any problems. Office will call to schedule follow up appointment [facility] 09-11-2024 Evaluation + Plan note Future Scheduled TestsXR Esophagus 03/20/24 [facility] 03-20-2024 Note Patient Education - Text [...] Document Re-Released: 12/18/2006 ExitCare? Patient Information ?2009 [employer]. Gastroenterology Hiatal Hernia A hiatal hernia occurs [...] symptoms. ? Medicines. These may include: ? Pcpg-fob-cfeuvwm antacids. ? Medicines that make your stomach [...] Avoid putting pressu (more content not included)... [facility] 03-20-2024 Note Endoscopic Procedure Report - [...] examined duodenum Images Procedure images: Rec1_hd_video____[id number]. jpg Rec_hd_video___35_581. jpg Rec_hd_video___25_745. jpg Rec1_hd_video_2023____15_326. jpg Rec1_hd_video___14_566. jpg Rec1_hd_video____01_833. jpg . Post-Procedure Complications: none. [...] surgery referral is indicated, will be ordered [facility] Comment on above: Result Comment: Elec tronically Signed By: Yovanny OLIVO, Katie Torres\.br\Date and Time Signed: 03/20/24 12:58 EDT Other Comment: Samreen dueñas Attachment - attachment storage system not supported [id number] Can be viewed in source systemMissing Attachment - attachment storage system not supported 8991587 Can be viewed in source systemMissing Attachment - attachment storage system not supported [id number] Can be viewed in source systemMissing Attachment - attachment storage system not supported 7606696 Can be viewed in source systemMissing Attachment - attachment storage system not supported 5761115 Can be viewed in source systemMissing Attachment - attachment storage system not supported 8624133 Can be viewed in source system 03-20-2024 [...] 1 tab, Oral, Daily Flonase 0.05 mg/inh [place]: 2 spray(s), Nasal, Daily, Refill(s) 0, Dry [...] a day (at bedtime) Flonase 0.05 mg/inh [place] 2 spray(s), Nasal, Daily losartan 25 mg [...] All Problems HTN (hypertension) / SNOMED CT 5657622834 / Confirmed Chronic obstructive pulmonary disease / SNOMED CT 81314809 / Confirmed Insomnia / SNOMED CT 216297658 / Confirmed Seasonal allergic rhinitis / SNOMED CT 530104748 / Confirmed Dyslipidemia / SNOMED CT 8064673472 / Confirmed BMI 39.0-39.9,adult / SNOMED CT 381300060 / Confirmed Morbid obesity / SNOMED CT 692662596 / Confirmed GERD (gastroesophageal reflux disease) / SNOMED CT 254297461 / Confirmed Hiatal hernia / SNOMED CT 599961768 / Confirmed EDWIN (obstructive sleep apnea) / SNOMED CT 980135143 / Confirmed Lower extremity edema / SNOMED CT 988658459 / Confirmed TIA (transient ischemic attack) / SNOMED CT 898787047 / Confirmed Screening for malignant neoplasm of colon / SNOMED CT 043538299 / Confirmed Dysphagia / SNOMED CT 64805471 / Confirmed Histories Past Medical History: Resolved Hernia (446581239): Resolved. Sleep apnea (834205597): Resolved. Family History: Father Alcoholism Primary malignant neoplasm of lung COPD Mother Cardiac arrest Alzheimer's disease Procedure history: Colonoscopy (663033210) on 10/13/2023 at 73 Years. ORIF - Open reduction of fracture of ankle with internal fixation (094804609860310). Meniscal repair (018504711). Tonsillectomy (929636437). Hand tendon repaired (647132945). Social History Social & Psychosocial Habits Alcohol [...] mmHg (MAR 20:) Weight 100 kg (MAR 20:14) General: in Nad Abdomen: Soft, NTND Impression and Plan Impression: DYSPHAGIA Plan: -EGD [facility] Comment on above: Result Comment: Elec tronically Signed By: Yovanny OLIVO, Katie Torres\.br\Date and Time Signed: 03/20/24 12:47 EDT 10-16-2023 Note [id number] 385#1.00TIFF [facility] 10-13-2023 Evaluation + Plan note Extrac clarke from: Title:ANES Post-operative Note - General Author: Shaji Bethea Jr., DO Date:10/13/23 Plan Transfer/Discharge: Transfer/Discharge Discharge when meets criteria ( From PACU to Ambulatory Surgery Unit, and To home ). Extracted from: Title:ANES Pre-operative Note - Endo Author:Shaji Mendoza Jr., DO Date:10/13/23 Plan [place] [employer]esthesi[employer] (ASA) physical status classification: Class III. Anesthetic Preoperative Plan: Anesthesia General, and -TIVA. [facility]04-05-2024 Hospital Discharge instructions Patient Education 10/13/2023 09:31:42 Colonoscopy, Care After Surgery Salam (CUSTOM) Colonoscopy Care After Surgery Please read the instructions outlined below and refer to this sheet in the next few weeks. These discharge instructions provide you with general information on caring for [facility] Your doctor may also give you specific [...] Up Care 09/12/2023 10:17:58 With:Pa WEBB Address: [address], [address] [place] [phone]- Business (1) When: only if needed [facility]04-05-2024 NotePatient: SHEY BOSS Age: 73 years Sex: Female : 1950 Associated Diagnoses: None Author: Pa WEBB MD Subjective no changes to & [facility]:Result Comment: Electronically Signed By: Pa WEBB MD\.br\Date and Time Signed: 10/13/23 09:45 [id number] NoteChief Complaint consultation for colonoscopy HPI Staff [...] a day (at bedtime) Flonase 0.05 mg/inh [place], 2 spray(s), Nasal, Daily losartan 25 mg [...] Alcoholism: Father. Alzheimer's di (more content not included)...[facility]Result Comment: Electronically Signed By: TRACEY OLIVO, Pa Lynn\Date and Time Signed: 09/12/23 10:16 [id number] History of Present illness Narrative* Latrell Jack [...] referral to General [id number] NoteEXAMINATION: XR CHEST 1 V HISTORY: SHORTNESS [...] Electronically authenticated by: MEHNAZ SANTIAGO Date: 2021-11-02 16:39[facility]03-04-2022 NotePROCEDURE: XR ANKLE RT MIN 3 VIEWS [...] Electronically authenticated by: WILLARD ANAND Date: 2021-09-10 09:02[facility]03-04-2022 NotePROCEDURE: XR ANKLE RT 2V COMPARISON: 03/02/2020. HISTORY: Pain FINDINGS: 35 seconds of fluoroscopy. 5 fluoroscopic images Interval removal of internal fixation hardware. Components of 2 fractured screws across the tibiofibular syndesmosis remain on image #5 IMPRESSION: Removal of lateral fibular plate and screws Electronically authenticated by: WILLARD ANAND Date: 2021-09-10 08:30[facility] Future Appointments Appointment Date:03/20/2024 12:15:00 PM Scheduled Provider: Location:[facility] Appointment Type:Surgery [facility] Evaluation note* Diagnosis Essential hypertension, [...] 40.0-44.9, adult (Z68.41) documented in this encounter [facility]* Diagnosis Memory loss- Primary Word finding difficulty EDWIN on CPAP Other insomnia Other chronic pain Generalized anxiety disorder (CMS/HCC) Generalized anxiety disorder Severe episode of recurrent major depressive disorder, 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) documented in this encounter [facility]* Diagnosis Paraesophageal hernia- Primary [...] (BMI) of 38.0 to 38.9 in adult ([facility]) documented in this encounter [facility]* Diagnosis Essential hypertension, benign (CMS/HCC)- Primary Essential hypertension, benign Chronic obstructive pulmonary disease, unspecified COPD type (CMS/HCC) Primary insomnia Persistent disorder of initiating or maintaining sleep Primary osteoarthritis of both knees Hiatal hernia with gastroesophageal reflux disease without esophagitis Seasonal allergic rhinitis due to pollen Screening for colon cancer Special screening for malignant neoplasms, colon Morbid obesity due to excess calories ([facility]) Dyslipidemia ([facility]) Other and unspecified hyperlipidemia Encounter for long-term (current) use of medications Encounter for long-term (current) use of other medications Body mass index [BMI] 40.0-44.9, adult (Z68.41) Essential hypertension, benign (CMS/HCC)- Primary Essential hypertension, benign Dysphagia, unspecified type 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[facility]/HCC) Senile dementia, uncomplicated Chronic obstructive pulmonary disease, unspecified COPD type (CMS/HCC) Hiatal hernia with gastroesophageal reflux disease without esophagitis Primary osteoarthritis of both knees Primary insomnia Persistent disorder of initiating or maintaining sleep EDWIN (obstructive sleep apnea) Obstructive sleep apnea (adult) (pediatric) Essential hypertension, benign ([facility]/HCC)- Primary Essential hypertension, benign Chronic obstructive pulmonary [...] (BMI) of 38.0 to 38.9 in adult ([facility]) Essential hypertension, benign ([facility]/HCC) Essential hypertension, benign Hiatal hernia with gastroesophageal reflux disease without esophagitis documented in this encounter [facility]* Diagnosis Memory loss- Primary Word finding difficulty EDWIN on CPAP Other insomnia Other chronic pain Generalized anxiety disorder (CMS/HCC) Generalized anxiety disorder [facility] Narr[facility] No data available for this section [facility] No data available for this section [facility] Progress note No data available for this section [facility] HospitalReason for referral (narrative)* Consultation (Routine) - Pending Review Specialty Diagnoses / Procedures Referred By Contac t Referred To Contact General Surgery Diagnoses Screening for colon cancer Procedures CA OFFICE/OUTPATIENT NEW HIGH MDM 60 MINUTES Latrell Jack MD [address] [place] [address] Pa Webb MD [address] [place] [address] Referral ID Status Reason Start Date Expiration Date Visits Requested Visits Authorized [id number] Pending Review Specialty Services Required 08/11/2023 02/07/2024 [...] Found No data available for this section Advance Directives No Advanced Directives Records FoundNo Advanced Directives Records FoundNo Advanced Directives Records FoundNo Advanced Directives Records FoundNo Advanced Directives Records FoundNo Advanced Directives Records FoundNo Advanced Directives Records FoundNo Advanced Directives Records Found Hospital Course Note [facility] SURGERY Clinical Discharge Summary PERSON INFORMATION Name SHEY BOSS Age 68 Years 52 Sex FEMALE Language Gabonese PCP LATRELL JACK Marital Status Single Med Service Ambulatory Surgery Acct# Arrival 02/04/19 11:44:00 Visit Reason SURGERY - RELEASE TRIGGER FINGER LEFT RING FINGER AND E/O CYST LEFT RING FINGER Acuity LOS 012 05:38 Address: [address] [place] [id number] Comment: PROVIDER INFORMATION VITALS INFORMATION Vital Sign [...] Referral Specialty Diagnoses / Procedures Referred By Contac t Referred To Contact Diagnoses Preoperative examination Paraesophageal hernia Procedures REFER TO [facility] - PREOPERATIVE OPTIMIZATION OFFICE/OUTPATIENT [facility] MDM 60 MINUTES Katarzyna Carter APRN.[employer] DEVELOPER [address] [place] [address] Referral ID Status Reason Start Date Expiration Date Visits Requested Visits Authorized [id number] Authorized PCP Requested Referral 4 05/04/2025 1 1 Specialty Diagnoses / Procedures Referred By Joan junior Referred To [facility] Diagnoses Preoperative examination Paraesophageal hernia Procedures ECG COMPLETE ECG ROUTINE ECG W/LEAST 12 LDS W/I&R Katarzyna Carter, LISSETTE.[employer] PI DEVELOPER [address] [id number] [facility] [place] [address] [place] [address] Referral ID Status Reason Start Date Expiration Date Visits Requested Visits Authorized [id number] New Request Auto-Generat ed Referral 4 05/04/2025 1 1 Additional Source Comments INFORMATION SOURCE (unrecogn ized section and content) DATE CREATED AUTHOR 02/17/2019 [facility] DATE CREATED AUTHOR AUTHOR'S ORGANIZ ATION 08/03/2022 [facility] DATE CREATED AUTHOR AUTHOR'S ORGANIZ ATION 03/28/2024 [employer] [facility] DATE CREATED AUTHOR AUTHOR'S ORGANIZ ATION 03/30/2024 Jernigan Fercho [facility] DATE CREATED AUTHOR AUTHOR'S ORGANIZ ATION 04/04/2024 [facility] DATE CREATED AUTHOR AUTHOR'S ORGANIZ ATION 04/30/2024 [facility] DATE CREATED AUTHOR AUTHOR'S ORGANIZ ATION 06/02/2024 [facility] DATE CREATED AUTHOR AUTHOR'S ORGANIZ ATION 06/14/2024 [facility] Care Teams (unrecognized sec tion and content) [employer] Relationship Specialty Start Date End Date Latrell Jack MD [address] [place] [id number] PCP - General Family Medicine 08/05/23 [employer] Relationship Specialty Start Date End Date Latrell Jack MD [address] [place] [id number] PCP - General Family Medicine 08/05/23 [employer] Relationship Specialty Start Date End Date Latrell Jack MD [address] [place] [id number] PCP - General Family Medicine 08/05/23 [employer] Relationship Specialty Start Date End Date Katie Hairston MD [address] [address] Internal Medicine 04/02/24 [employer] Relationship Specialty Start Date End Date Katie Hairston MD [address] [facility] [address] [address] Internal Medicine 04/02/24 [employer] Relationship Specialty Start Date End Date Katie Hairston MD [address] [address] Internal Medicine 04/02/24 [employer] Relationship Specialty Start Date End Date Latrell Jack MD [address] [place] [id number] PCP - General Family Medicine 08/05/23 [employer] Relationship Specialty Start Date End Date Latrell Jack MD [address] [place] [id number] PCP - General Family Medicine 08/05/23 [employer] Relationship Specialty Start Date End Date Latrell Jack MD [address] [place] [phone] PCP - General Family Medicine 08/05/23 Diomedes Fitzgerald DO [address] [place] [address] Referring Physician Neurology 05/30/24 [employer] Relationship Specialty Start Date End Date Latrell Jack MD [address] [place] [phone] PCP - General Family Medicine 08/05/23 [employer] Relationship Specialty Start Date End Date Latrell Jack MD [address] [place] [id number] PCP - General Family Medicine 08/05/23 Reason for Visit (unrecogniz ed section and content) Reason Comments Follow-up 6 m Reason Comments New Patient Evaluation Hiatal Hernia Reason Comments 07.24.24 Cure Lap Paraesophageal H ernia Repair/EGD 4 hours los 1 Reason Comments Follow-up 3 m Reason Onset Date Comments Medication Question 06/13/2024 Source Comments (unrecognize d section and content) [...] THE PRIMARY CLINICAL RECORDS. [facility] [employer] [facility]. provides no warranty or guarantee of the accuracy or completeness of information in this document.
[2024-06-24 07:26] VITALS: BP 132/82; PULSE 82; TEMP 36.2; O2SAT 96
[2024-06-24] MEDS: 0.9 % SODIUM CHLORIDE 500 ML 50 ML IV (07:31)
[2024-06-24] MEDS: METHYLPREDNISOLONE ACETATE 40 MG/ML VIAL 80 MG INJ (08:13)
[2024-06-24] MEDS: BUPIVACAINE HCL 0.25% PF 25 MG/10 ML VIAL 4 ML INJ (08:13)
[2024-06-24] MEDS: LIDOCAINE HCL 2% 400 MG/20 ML MDV 16 ML INJ (08:13)
--- NOTE | 2024-06-24 08:15 | P.ON_ITS ---
Date of procedure: 06/24/24 Pre-op diagnosis: Pain due to lumbar spondylosis without myelopathy Post-op diagnosis: same as pre-op Procedure: Procedure: Bilateral L4-5, L5-S1 radiofrequency ablation Medications: Bupivacaine 0.25% 6cc, lidocaine 2% 6cc, kenalog 80mg The patient was seen and examined in the preoperative holding area.? The site was marked.? Written informed consent was obtained and placed on the chart.? The patient was brought to the medical procedure unit and placed in the prone position.? A timeout was completed verifying correct patient, procedure, positioning, and special requirements.? The skin overlying the target points, the designated medial branch, were prepped and draped in the usual sterile fashion.? The target point was achieved with a 20-gauge 15 cm with a 10 mm curved active tip radiofrequency cannula under direct fluoroscopic visualization.? The needle was inserted at level L4 on the right side. Needle tip position was confirmed with lateral fluoroscopic position.? Motor stimulation was carried out at 2 Hz up to 5 volts with the absence of extremity activity.? This was repeated at level L5, S1 on right side.?? Sensory stimulation was carried out.? Concordant pain was realized at the above- mentioned sites.? Then radiofrequency lesioning was carried out times 90 seconds at 80 degrees times 2 lesions at each level.? The radiofrequency probe was removed prior to cannula removal.? The above-mentioned injectate was placed in 1 mL increments.? The needle was removed. The same procedure, with the same steps, was then completed on the left side at the same levels. Insertion sites were covered.? The patient was taken to the postoperative recovery area and monitored for an appropriate length of time before being found suitable for discharge in the company of a responsible adult. Anesthesia: MAC Surgeon: Talat Arguello Pathology: none sent Condition: stable Disposition: no change
[2024-06-24 08:18] VITALS: BP 132/73; PULSE 78; TEMP 36.2; O2SAT 96
[2024-06-24 08:20] VITALS: BP 125/67; PULSE 77; TEMP 36.2; O2SAT 94
== END 2024-06-24 08:42 | disposition home or self-care (01) ==
LOC: SURGOUT 07:03
PROVIDERS: PCP Family Medicine; Visit Provider Anesthesiology
DX: M47.816 Spondylosis without myelopathy or radiculopathy, lumbar region (principal)
CPT/HCPCS: 64635; 64636; J0665; J1010; J2704

== ENCOUNTER 2024-07-18 08:44 | Outpatient (OUT) | payer MEDICARE, OTHER, SELFPAY ==
--- NOTE | 2024-07-18 08:56 | P.CN_ITS ---
Consult Note: HPI Data of Consult Patient: known to practice within the last 3 years Consult date: 04/15/24 Requesting Physician: Amalia Woodson NP Primary Care Provider: Latrell Mckeon MD Consult Narrative Reason for consult: low back pain Narrative: 73yof who presents for evaluation. chronic low back pain, recent lumbar MRI consistent with lumbar stenosis with NC and lumbar spondylosis, see results below. Pain unresponsive to tylenol, cannot take NSAIDs with hiatal hernia. Mild relief from zonegran 100mg HS without side effects. Has failed to benefit from HEP greater than 6 weeks. Pain today in low back 3/10 increasing to 5/10 with standing walking and long periods of sitting, improved with changing positions. Eduin numbness tingling weakness and loss of bowel/bladder. denies recent falls. Recently underwent bilateral L4-5 L5-S1 RFA which remains in the healing phase, pt noticing mild improvement in her pain at this time. cc:: CC: Amalia Woodson NP Review of Systems ROS Status of ROS 10 or more systems reviewed and unremark able except as noted in history and below Musculoskeletal Reports: back pain PFSH PFSH Medical History Osteoarthritis ?M19.90 - Unspecified osteoarthritis, unspecified site (ICD-10) Anxiety ?F41.9 - Anxiety disorder, unspecified (ICD-10) Hiatal hernia ?K44.9 - Diaphragmatic hernia without obstruction or gangrene (ICD-10) Sleep apnea ?G47.30 - Sleep apnea, unspecified (ICD-10) COPD (chronic obstructive pulmonary disease) ?J44.9 - Chronic obstructive pulmonary disease, unspecified (ICD-10) High cholesterol ?E78.00 - Pure hypercholesterolemia, unspecified (ICD-10) HTN (hypertension) ?I10 - Essential (primary) hypertension (ICD-10) Surgical History History of ankle surgery ?Z98.890 - Other specified postprocedural states (ICD-10) History of hand surgery ?Z98.890 - Other specified postprocedural states (ICD-10) History of knee replacement ?Z96.659 - Presence of unspecified artificial knee joint (ICD-10) Meds Home Medications and Allergies Home Medications ?Medication ?Instructions ?Recorded ?Confirmed ?Type aspirin 81 mg tablet,delayed 81 mg PO DAILY 04/16/24 06/24/24 History release (Adult Aspirin Regimen) atorvastatin 40 mg tablet 40 mg PO DAILY 04/16/24 06/24/24 History calcium carbonate (Calcium 500) 500 mg PO BID 04/16/24 06/24/24 History donepezil 5 mg tablet (Aricept) 5 mg PO DAILY 04/16/24 06/24/24 History famotidine 40 mg tablet 40 mg PO DAILY 04/16/24 06/24/24 History fluticasone propionate 50 2 spray intranasal DAILY PRN 04/16/24 06/24/24 History mcg/actuation nasal allergy symptoms spray,suspension (24 Hour Allergy Relief) losartan 50 mg tablet 50 mg PO DAILY 04/16/24 06/24/24 History pantoprazole 40 mg tablet,delayed 40 mg PO BID 04/16/24 06/24/24 History release tiotropium bromide 18 mcg capsule 1 cap inhalation DAILY 04/16/24 06/24/24 History with inhalation device (Spiriva with HandiHaler) vitamin E 268 mg (400 unit) capsule 268 mg PO DAILY 04/16/24 06/24/24 History zolpidem 12.5 mg tablet,extended 12.5 mg PO DAILY 04/16/24 06/24/24 History release,multiphase zonisamide 50 mg capsule 100 mg PO BEDTIME 05/29/24 06/24/24 History Allergies Allergy/AdvReac Type Severity Reaction Status Date / Time No Known Drug Allergies Allergy Verified 06/24/24 07:33 Exam Constitutional Documenting provider has reviewed patient's vital signs: yes Common normals: no apparent distress, oriented x3, healthy appearing, alert and well nourished General appearance: cooperative [facility] Common normals: normocephalic, hearing grossly normal bilaterally and moist oral mucous membranes Head and scalp: normocephalic Eye Common normals: PERRL Pupil: PERRL Neck & C-Spine Common normals: full ROM General: normal visual inspection Chest Common normals: inspection of chest normal Respiratory Common normals: normal respiratory effort, no retractions and no use of accessory muscles Back & Pelvis Lumbar spine/lower back: straight leg raise negative bilaterally; no pain with ROM, no lumbar spinal tenderness, no paraspinal muscle tenderness and no paraspinal muscle spasm Sacroiliac joints: SI joints normal Other: strength 5/5 in BLE sensation intact BLE left SIJ negative mauro(patricks), gaenslens, thigh thrust, compression test Neuro Common normals: oriented x3, CN's II-XII intact bilaterally, moves all extremities, no focal motor deficits, no sensory deficits noted and deep tendon reflexes 2+ bilaterally Sensorium/orientation: alert Motor exam: strength 5/5 throughout and no movement abnormalities noted Psych Common normals: mental status grossly normal, thought process normal, cooperative, affect normal, speech normal and activity/motor behavior normal Speech: normal speech Thought process: normal thought process Results Additional Findings Additional findings: If on a controlled substance or opioids, I have checked an [place] report on this patient and there are no aberrancies noted in the prescribing history.??If on a controlled substance or opioid a drug screen was completed and reviewed within the last year, and if there has not been a drug screen completed we ordered one today to monitor higher risk, state monitored pain medication use. As part of providing excellent, safe, comprehensive care, the following was completed at our patient's visit: 1. A medication reconciliation and review to ensure accurate knowledge of current/active medications, including asking our patients to inform us about any [id number] medications or herbal remedies/nutritional supplements /alternative remedies. 2. A review to specifically ensure our patients have had annual screening for screening for depression, screening for tobacco use, and screening for unhealthy alcohol use. For concerning screenings had a discussion with the patient, provided patient education, and recommended follow-up with primary care provider when appropriate. If patient noted with a risk of falling, they received education on strength, gait, and balance training to prevent future risk of falling. Assessment and Plan Assessment and Plan (1) Lumbar spondylosis: (2) Myalgia: Plan bilateral L4-5 L5-S1 facet medial branch RFA in the healing phase continue HEP as tolerated continue baclofen 5-10mg BID PRN pain/spasms continue zonegran 100mg HS f/u 2 months to discuss effectivness of RFA
== END 2024-07-18 08:45 | disposition home or self-care (01) ==
LOC: PM 08:44
PROVIDERS: PCP Family Medicine; Visit Provider Nurse Practitioner
DX: M47.816 Spondylosis without myelopathy or radiculopathy, lumbar region (principal); M79.18 Myalgia, other site
CPT/HCPCS: G0463

== ENCOUNTER 2024-08-27 11:17 | Outpatient (OUT) | payer MEDICARE, OTHER, SELFPAY ==
[2024-08-27 12:17] LABS: Basophils Percent Auto 0.4 % (0.2-2.0); Eosinophils Absolute Auto 0.2 10^3/uL (0.0-0.7); Eosinophils Percent Auto 3.5 % (0.9-7.0); Hematocrit 39.2 % (36.0-48.0); Hemoglobin 13.1 g/dL (12.0-16.0); Immature Granulocytes Abs Auto 0.09 10^3/uL (0.00-0.03); Immature Granulocytes Pct Auto 1.3 % (0.0-0.5); Lymphocytes Absolute Auto 1.2 10^3/uL (1.2-3.8); Lymphocytes Percent Auto 18.3 % (20.5-60.0); Mean Corpuscular HGB Conc 33.4 g/dL (29.9-35.2); Mean Corpuscular Hemoglobin 31.9 pg (26.7-34.0); Mean Corpuscular Volume 95.4 fL (81.0-99.0); Mean Platelet Volume 10.6 fL (9.5-13.5); Monocytes Absolute Auto 0.4 10^3/uL (0.3-0.8); Monocytes Percent Auto 6.5 % (1.7-12.0); Neutrophils Absolute Auto 4.7 10^3/uL (1.4-6.5); Platelet Count 194 10^3/uL (150-450); Red Blood Count 4.11 10^6/uL (4.20-5.40); Red Cell Distribution Width 12.8 % (11.0-15.0); White Blood Count 6.8 10^3/uL (4.0-11.0)
[2024-08-27 12:28] LABS: Estimated Average Glucose 97 mg/dL
[2024-08-27 13:14] LABS: Alanine Aminotransferase 25 U/L (14-59); Albumin Level 3.7 g/dL (3.4-5.0); Alkaline Phosphatase 152 U/L (46-116); Anion Gap 12.3; Aspartate Amino Transferase 24 U/L (15-37); BUN Creatinine Ratio 22.5; Bilirubin Direct 0.1 mg/dL (0.0-0.2); Bilirubin Total 0.4 mg/dL (0.2-1.0); Calcium 9.3 mg/dL (8.5-10.1); Carbon Dioxide 26.7 mmol/L (21.0-32.0); Chloride 107 mmol/L (98-107); Chol HDL Ratio 2.8; Cholesterol 130 mg/dL (<=200); Estimated GFR (African America >60 (>=60 mL/min/1.73m^2); Estimated GFR (Non-African Ame >60 (>=60 mL/min/1.73m^2); Globulin 3.7 g/dL; Glucose 124 mg/dL (74-106); HDL Cholesterol 47 mg/dL (40-60); LDL Cholesterol Calculated 53.6 mg/dL; Sodium 142 mmol/L (136-145); Thyroid Stimulating Hormone 2.241 uIU/mL (0.358-3.740); Total Protein 7.4 g/dL (6.4-8.2); Triglycerides 147 mg/dL (<=150); VLDL CHOLESTEROL 29.4 mg/dL
== END 2024-08-27 11:18 | disposition home or self-care (01) ==
LOC: LAB 11:21
PROVIDERS: PCP Family Medicine; Visit Provider Family Medicine
DX: R73.03 Prediabetes (principal); I10 Essential (primary) hypertension; Z79.899 Other long term (current) drug therapy; E78.5 Hyperlipidemia, unspecified; E66.812 Obesity, class 2; E66.01 Morbid (severe) obesity due to excess calories; Z68.36 Body mass index [BMI] 36.0-36.9, adult
CPT/HCPCS: 36415; 80048; 80061; 80076; 83036; 84443; 85025

== ENCOUNTER 2024-09-18 09:07 | Outpatient (OUT) | payer MEDICARE, OTHER, SELFPAY ==
--- OUTSIDE RECORDS SUMMARY | 2024-09-18 09:22 | XMS_ITS | CCD ---
Author Organization [facility] Care Team Providers Care Vacuum Caster Name Role Phone FREDY, DR CHAPARRO Attending [...] Unavailable HIGHLANDER, MARNIE Fuentes Consulting Unavailable AGUBOSIM, COERY Consulting Unavailable NADEGE, AMAR Consulting Unavailable LANGENBERG, [...] Vivas Attending Unavailable Pa WEBB Admitting Unavailable Dafne Spears Referring Unavaila ble Sarmini, Leos Talal Attending Unavaila ble Sarmini, Leos Talal Admitting Unavaila ble Sarmini, Leos Talal Referring Unavaila ble Sarmini, Leos Talal Attending Unavaila ble Sarmini, Leos Talal Admitting Unavaila ble Sarmini, Leos Talal Attending Unavaila ble Pa WEBB Attending Unavailable LATRELL JACK Referring Unavailable Yovanny OLIVO, Dafne Talal Unavailable [phone] Diomedes Fitzgerald DO Unavailable Giyaniqueitis , Andrius Vytautdenis Attending Unavailable Giedraitis , Andrius Vytautas Attending Unavailable Giedraitis , Andrius Vytautas Attending Unavailable Jocelynitis , Andrius Vytautas Attending Unavailable Saundra OLIVO, Andrius Marichuy Attending Unavailable Latrell Jack MD Primary Care Provider Yovanny OLIVO, Dafne Hwang Unavailable [phone] LATRELL JACK Primary Care Unavailable BEMAR, XAVIER MAYFIELD Referring Unava ilable NADERER, LATRELL Flood Primary Care Unavailable XAVIER BOYD Referring Unava ilable KATARZYNA SNYDER Attending Unavailable BARI CASTILLO Referring Unavailable LATRELL JACK Primary Care Unavailable LATRELL JACK Primary Care Unavailable XAVIER BOYD Referring Unava ilable SARMINI, LEOS TALAL Referring Unavaila ble DEB, XVAIER MAYFIELD Attending Unava ilable LATRELL JACK Primary Care Unavailable JAMIL DELACRUZ Referring Unavailable KATARZYNA SNYDER Referring Unavailable LATRELL JACK Primary Care Unavailable BEXAVIER MANUEL Attending Unava ilable XAVIER BOYD Admitting Unava ilable CANDICEEREOrtega, LATRELL Attending Unavailable GUERO, LATRELL Attending Unavailable DIOMEDES FITZGERALD Attending Unavailable LATRELL JACK Referring Unavailable DIOMEDES FITZGERALD Referring Unavailable MAO MORROW Attending Unavailable GUERO, LATRELL Attending Unavailable SANDRA ARCOS Attending Unavailable Latrell Jack MD Unavailable Allergies Allergy Classification Reported Allergen(s) Allergy Type Date of Onset Reaction(s) Facility (1 source) Amino Acids Drug Allergy [facility] Repository Medications Current Medications Medication Drug Class(es) Dates Sig (Normalized) Sig (Original) acetaminophen 500 mg oral tablet (6 sources) Start: 07-26-2024 take 1 tablet by mouth every six hours as needed for pain and pain acetaminophen (Tylenol) 500 MG tablet Take 500 mg by mouth every 6 (six) hours if needed for mild pain or moderate pain Take 2 tabs every 6 hours as needed for pain. 07/26/2024 Active aspirin 81 mg oral tablet (20 sources) Platelet Aggregation Inhibitor, Nonsteroidal Anti-inflammatory Drug Start: 03-05-2021 aspirin 81 mg cap Take 81 mg by mouth. 03/05/2021 Active Start: 03-05-2021 take 1 tablet by jennifer th once daily aspirin 81 mg Oral EC Tab 81 mg = 1 tab(s), Oral, Daily, Refills(s) 0, Prophylaxis Start Date: 03/05/21 Status: Ordered atorvastatin 40 mg oral tablet (20 sources) HMG-CoA Reductase Inhibitor Start: 03-12-2021 take 1 tablet by mouth at bedtime atorvastatin (Lipitor) 40 MG tablet Indications: Dyslipidemia (CMS/HCC) Take 1 tablet (40 mg) by mouth at bedtime 90 tablet 3 02/09/2024 Active baclofen 10 mg oral tablet (11 sources) gamma-Aminobutyr ic Acid-ergic Agonist take 5 mg [...] Ordered calcium carbonate 1500 mg oral tablet (20 sources) take 1 tablet by mouth in the morning calcium carbonate 1500 (600 Ca) MG tablet Take 1 tablet by mouth in the morning and 1 tablet in the evening. Take with meals. Active cholecalciferol 0.025 mg oral capsule (20 sources) Vitamin D take 1 capsule by mouth once daily cholecalciferol (Vitamin D-3) 25 MCG (1000 UT) capsule Take 1 capsule by mouth 1 (one) time each day at the same time Active Cholecalciferol, Vitamin D3, 25 mcg (1,000 unit) cap Take 1 capsule by mouth. Active docusate sodium 100 mg oral capsule (6 sources) Start: 07-26-2024 Docusate Sodiu m (DSS) 100 MG capsule Take 100 mg by mouth every 12 (twelve) hours if needed 07/26/2024 Active Start: 07-26-2024 take 1 capsule by mo [facility] every twelve hours as needed docusate sodium (COLACE) 100 mg capsule Take 1 capsule by mouth two times a day as needed for constipation. 07/26/2024 Active donepezil hydrochloride 10 mg oral tablet (20 sources) Start: 05-30-2024 End: 05-30-2025 take 1 tablet by mouth at bedtime donepezil (Aricept) 10 MG tablet Indications: Memory loss Take 1 tablet (10 mg) by mouth at bedtime 90 tablet 1 05/30/2024 05/30/2025 Active Start: 02-23-2024 End: 08-27-2024 take 1 tablet by mouth at bedtime donepezil (Aricept) 5 MG tablet Indications: 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CMS/HCC) TAKE 1 TABLET BY MOUTH AT BEDTIME 90 tablet 1 03/04/2024 08/27/2024 Discontinued famotidine 40 mg oral tablet (20 sources) Histamine-2 Receptor Antagonist Start: 11-08-2020 famotidine (Pepcid) 40 MG tablet Indications: Hiatal hernia with gastroesophageal reflux disease without esophagitis TAKE 1 TABLET TWICE DAILY 180 tablet 3 05/15/2024 Active Start: 11-08-2020 take 1 tablet by jennifer once daily at bedtime famotidine 40 mg Tab 40 mg = 1 tab(s), Oral, Once a day (at bedtime), Refills(s) 0, Control of stomach acid Start Date: 03/03/21 Status: Ordered fluticasone propionate 0.05 mg/actuat metered dose nasal spray (20 sources) Corticosteroid Start: 03-26-2024 take 2 spray(s) nasal route once daily fluticasone (Flonase) 50 MCG/ACT nasal spray Indications: Seasonal allergic rhinitis due to pollen USE 2 SPRAYS IN EACH NOSTRIL DAILY 48 mL 5 03/26/2024 Active Start: 09-06-2023 fluticasone (F LONASE) 50 mcg/actuation nasal spray 2 Sprays once daily. 09/06/2023 Active Start: 09-06-2023 Flonase 0.05 m g/inh [place] 2 spray(s), Nasal, Daily, Refill(s) 0, Dry nasal passages Start Date: 09/06/23 Status: Ordered Start: 06-21-2023 End: 03-26-2024 take 2 spray(s) nasal route in the morning fluticasone (Flonase) 50 MCG/ACT nasal spray Administer 2 sprays into each nostril in the morning. 06/21/2023 03/26/2024 Discontinued losartan potassium 50 mg oral tablet (20 sources) Angiotensin 2 Receptor Martin Start: 02-09-2024 End: 06-13-2024 take 1 tablet by mouth in the morning losartan (Cozaar) 50 MG tablet Indications: Essential hypertension, benign (CMS/HCC) Take 1 tablet (50 mg) by mouth in the morning and 1 tablet (50 mg) before bedtime. 180 tablet 3 06/13/2024 Active Start: 09-06-2023 take 1 tablet by [...] time 0 Active Multiple Vitamin (multivitamin) capsule (14 sources) take 1 capsule by mouth once daily Multiple Vitamin (multivitamin) capsule Take 1 capsule by mouth Daily Active ondansetron 4 mg oral tablet (1 source) Serotonin-3 Receptor Antagonist Start: 2024 End: 2024 take 1 tablet by mouth every eight hours as needed ondansetron (Zofran) 4 MG tablet Take 4 mg by mouth every 8 (eight) hours if needed 07/26/2024 08/02/2024 Active oxyCODONE hydrochloride 5 mg oral tablet (4 sources) Opioid Agonist Start: 2024 End: 2024 take 1 tablet by mouth every six hours as needed for pain and pain oxyCODONE (Roxicodone) 5 MG immediate release tablet Take 5 mg by mouth every 6 (six) hours if needed for moderate pain or severe pain 07/26/2024 08/27/2024 Discontinued pantoprazole 40 mg delayed release oral tablet (20 sources) Proton Pump Inhibitor Start: 2020 End: 2023 take 1 tablet by mouth in the morning pantoprazole (ProtoNix) 40 MG EC tablet Indications: Hiatal hernia with gastroesophageal reflux disease without esophagitis Take 1 tablet (40 mg) by mouth in the morning and 1 tablet (40 mg) before bedtime. 180 tablet 3 06/13/2024 Active predniSONE 50 mg oral tablet (2 sources) Start: 2023 End: 2023 take 1 tablet by mouth once daily predniSONE (Deltasone) 50 MG tablet Indications: Chronic obstructive pulmonary disease, unspecified COPD type (CMS/HCC) Take 1 tablet (50 mg) by mouth Daily for 6 days 6 tablet 05/15/2024 05/21/2024 Active tiotropium 0.018 mg inhalation powder (20 sources) Anticholinergic Start: 2023 End: 2024 take [...] inhale in the morning. 0 05/23/2023 Active tiotropium bromi de (SPIRIVA RESPIMAT INHALATION) Inhale as instructed. Active Vitamin D3 1000 intl units (25 mcg) Tab (4 sources) Start: 09-06-2023 take 1 tablet by mouth once daily Vitamin D3 1000 intl units (25 mcg) Tab 25 mcg = 1 tab(s), Oral, Daily, Refills(s) 0, Prophylaxis Start Date: 09/06/23 Status: Ordered Vitamin E (20 sources) Start: 02-26-2024 vitamin E Oral , Daily, Refills(s) 0, Prophylaxis Start Date: 02/26/24 Status: Ordered Start: 02-26-2024 vitamin E Oral , Refills(s) 0 Start Date: 02/26/24 Status: Ordered take 1 capsule by [facility] once daily alpha tocopherol (Vitamin E) 400 units capsule Take 1 capsule by mouth 1 (one) time each day at the same time Active Vitamin E, dl, a cetate, (VITAMIN E) 400 unit capsule Take 1 capsule by mouth. Active zolpidem tartrate 10 mg oral tablet (20 sources) gamma-Aminobutyric Acid-ergic Agonist Start: 07-31-2024 zolpidem (Ambien) 10 MG tablet Indications: Primary insomnia Take 1 tablet (10 mg) by mouth as needed at bedtime for sleep 90 tablet 07/31/2024 Active Start: 03-03-2021 End: 07-31-2024 take 1 tablet by mouth at bedtime zolpidem CR (Ambien CR) 12.5 MG ER tablet Indications: Primary insomnia Take 1 tablet (12.5 mg) by mouth at bedtime 90 tablet 2 07/30/2024 07/31/2024 Discontinued zonisamide 50 mg oral capsule (3 sources) Anti-epileptic Agent Start: 08-07-2024 take 2 capsules by mouth once daily zonisamide (Zonegran) 50 MG capsule Take 100 mg by mouth Daily 08/07/2024 Active Completed/Discontinued Medications Medication Drug Class(es) Dates Sig (Normalized) Sig (Original) albuterol 0.83 mg/ml inhalation solution (20 sources) beta2-Adrenergic Agonist Start: 02-23-2024 albuterol 0.083% [...] of breath 150 mL 3 02/09/2024 Active ALBUTEROL INHALA TION Inhale as instructed. Active One A Day Women's Complete (4 sources) Start: 03-03-2021 One A Day Wome n's Complete Oral, Daily, Refill(s) 0, Prophylaxis Start Date: 03/03/21 Status: Ordered Problems Active Problems Problem Classification Problem Date Documented Date Episodic/Chronic Acute cerebrovascular disease (20 sources) Cerebrovascular accident; Translations: [Cerebral infarction, unspecified] Onset: 4 03-03-2024 Chronic Anxiety disorders (6 sources) Generalized anxiety disorder; Translations: [Generalized anxiety disorder] 04-12-2024 Chronic Chronic obstructive pulmonary disease and bronchiectasis (20 sources) Chronic obstructive pulmonary disease, unspecified; Translations: [Chronic obstructive pulmonary disease with (acute) exacerbation] Onset: 2 08-11-2023 Chronic Delirium, dementia, and amnestic and other cognitive disorders (20 sources) Senile dementia; Translations: [Unspecified dementia without behavioral disturbance] Onset: 4 02-09-2024 Chronic Disorders of lipid metabolism (20 sources) Hyperlipidemia, unspecified; Translations: [Dyslipidemia] Onset: 2 08-11-2023 Chronic Esophageal disorders (10 sources) Gastroesophageal reflux disease; Translations: [Gastroesophageal reflux disease without esophagitis] Onset: 4 09-06-2023 Chronic Essential hypertension (20 sources) Essential (primary) hypertension; Translations: [Benign essential hypertension] Onset: 2 Resolved: 5 08-11-2023 Chronic Fluid and electrolyte disorders (1 source) Disorder of electrolytes; Translations: [Other disorders of electrolyte and fluid balance, not elsewhere classified] Onset: 5 07-26-2024 Episodic Miscellaneous mental health disorders (20 sources) Psychophysiologic insomnia; Translations: [Primary insomnia] Onset: 2 08-11-2023 Chronic Mood disorders (4 sources) 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 features; Translations: [Major depressive disorder, recurrent severe without psychotic features] 04-12-2024 Chronic Osteoarthritis (20 sources) Primary gonarthrosis, bilateral; Translations: [Bilateral primary osteoarthritis of knee] Onset: 4 08-11-2023 Chronic Other aftercare (1 source) Postoperative visit; Translations: [Encounter for other specified surgical aftercare] 08-07-2024 Episodic Other aftercare (1 source) Encounter for other specified surgical aftercare; Translations: [Postoperative visit] Onset: 5 Episodic Other hereditary and degenerative nervous system conditions (2 sources) Impaired cognition; Translations: [Mild cognitive impairment, so stated] 03-07-2024 Chronic Other lower respiratory disease (2 sources) Dyspnea on exertion; Translations: [Other forms of dyspnea] 07-23-2024 Episodic Other lower respiratory disease (1 source) Other forms of dyspnea; Translations: [CHENEY (dyspnea on exertion)] Onset: 5 Episodic Other nervous system disorders (6 sources) Chronic pain; Translations: [Other chronic pain] 04-12-2024 Chronic Other nervous system disorders (1 source) Other chronic pain; Translations: [Chronic back pain, unspecified back location, unspecified back pain laterality] Onset: 5 Chronic Other nervous system disorders (4 sources) Word finding difficulty ; Translations: [Other speech disturbances] 04-12-2024 Episodic Other nervous system disorders (1 source) Acute postoperative pain; Translations: [Other acute postprocedural pain] Onset: 5 07-24-2024 Episodic Other nervous system disorders (1 source) Other acute postprocedural pain; Translations: [Acute postoperative pain] Onset: 5 Episodic Other nutritional; endocrine; and metabolic disorders [...] Chronic Other nutritional; endocrine; and metabolic disorders (20 sources) Severe obesity; Translations: [Class 2 severe obesity due to excess calories with serious comorbidity and body mass index (BMI) of 38.0 to 38.9 in adult ([facility])] Onset: 4 Resolved: 5 05-15-2024 Chronic Other nutritional; endocrine; and metabolic disorders (3 sources) Obesity; Translations: [Obesity, unspecified] Onset: 5 07-23-2024 Chronic Other nutritional; endocrine; and metabolic disorders (1 source) Obese class II; Translations: [Obesity, Class II, BMI 35-39.9] Onset: 5 07-24-2024 Chronic Other screening for suspected conditions (not mental disorders or infectious disease) (20 sources) Encounter for screening mammogram for malignant neoplasm of breast; Translations: [Patient encounter status] Onset: 2 Episodic Other upper respiratory disease (20 sources) Allergic rhinitis due to pollen; Translations: [Allergic rhinitis due to pollen] Onset: 4 08-11-2023 Chronic Other upper respiratory disease (4 sources) Seasonal allergic rhinitis 09-06-2023 Chronic Residual codes; unclassified (2 sources) Obstructive sleep apnea (adult) (pediatric); Translations: [OBSTRUCTIVE SLEEP APNEA] Onset: 2 Chronic Residual codes; unclassified (20 sources) Obstructive sleep apnea syndrome; Translations: [Obstructive sleep apnea (adult) (pediatric)] Onset: 4 08-11-2023 Chronic Residual codes; unclassified (4 sources) Sleep apnea 03-03-2021 Chronic Residual codes; unclassified (6 sources) Insomnia; Translations: [Other insomnia] 04-12-2024 Chronic Residual codes; unclassified (4 sources) Insomnia 09-06-2023 Episodic Residual codes; unclassified (12 sources) Amnesia; Translations: [Other amnesia] Onset: 5 04-12-2024 Episodic Residual codes; unclassified (1 source) History of hernia repair; Translations: [Other specified postprocedural states] Onset: 5 07-24-2024 Episodic Residual codes; unclassified (1 source) Other amnesia; Translations: [Memory loss] Onset: 5 Episodic Screening and history of mental health and substance abuse codes (10 sources) Personal history of nicotine dependence; Translations: [Ex-smoker] Onset: 2 Episodic Spondylosis; intervertebral disc disorders; other back problems (9 sources) Lumbago with sciatica, left side; Translations: [Chronic back pain ] Onset: 2 07-23-2024 Episodic Transient cerebral ischemia (20 sources) Transient cerebral ischemia; Translations: [Transient cerebral [...] Onset: 09-16-2021 Episodic Diabetes mellitus without complication (20 sources) Prediabetes; Translations: [Prediabetes] Onset: 08-13-2023 08-13-2023 Episodic Fracture of lower limb (5 sources) Other fracture of upper and lower end of right fibula, subsequent encounter for closed fracture with routine healing; Translations: [Torus fracture of lower end of right fibula, subsequent encounter for fracture with routine healing] Onset: 09-03-2021 Episodic Genitourinary symptoms and ill-defined conditions (4 sources) Personal history of urinary (tract) infections; Translations: [History of urinary tract infection] Onset: 02-23-2022 07-23-2024 Episodic Immunizations and screening for infectious disease (3 sources) Contact with or exposure to other viral diseases; Translations: [Contact with and (suspected) exposure to covid-19] Onset: 11-04-2021 07-23-2024 Episodic Mood disorders (3 sources) Mood disorders Onset: 08-27-2024 08-27-2024 Other aftercare (1 source) Other intermediate accountant (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 therapy; Translations: [OTH SNF CURRENT DRUG THERAPY] Onset: 02-23-2022 Episodic Other aftercare (1 source) [facility] (current) use of aspirin; Translations: [SNF CURRENT USE OF ASPIRIN] Onset: 02-23-2022 Episodic Other aftercare (8 sources) Patient encounter status; Translations: [Other intermediate accountant (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 therapy] Onset: 08-11-2023 08-11-2023 Episodic Other aftercare (20 sources) Long-term current use of drug therapy; Translations: [Other [facility] (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 therapy] Onset: 08-11-2023 08-11-2023 Episodic Other bone disease and musculoskeletal deformities (1 source) Other specified disorders of bone density and structure, other site; Translations: [OTH D/O BONE DEN STRUCT OTH SITE] Onset: 09-16-2021 Episodic Other bone disease and musculoskeletal deformities (20 sources) Osteopenia; Translations: [Other specified disorders of bone density and structure, other site] Onset: 08-11-2023 08-11-2023 Episodic Other bone disease and musculoskeletal deformities (3 sources) Disorder of bone; Translations: [Other specified disorders of bone density and structure, other site] Onset: 09-16-2021 07-23-2024 Episodic Other circulatory disease (1 source) Personal history of transient ischemic attack (TIA), and cerebral infarction without residual deficits; Translations: [PERS HX TIA AND CI NO RESID DEFICIT] Onset: 09-16-2021 Episodic Other gastrointestinal disorders (20 sources) Dysphagia; Translations: [Dysphagia, unspecified] Onset: 02-09-2024 Episodic Other lower respiratory disease (3 sources) Dyspnea, unspecified; Translations: [DYSPNEA UNSPECIFIED] Onset: 11-02-2021 Episodic Other lower respiratory disease (1 source) Shortness of breath; Translations: [SHORTNESS OF BREATH] Onset: 11-04-2021 Episodic Other lower respiratory disease (3 sources) Cough; Translations: [Cough, unspecified] Onset: 02-22-2022 07-23-2024 Episodic Other lower respiratory disease (6 sources) Dyspnea; Translations: [Dyspnea, unspecified] Onset: 11-02-2021 07-23-2024 Episodic Other non-traumatic joint disorders (1 source) Pain in right ankle and joints of right foot; Translations: [PAIN IN RIGHT ANKLE] Onset: 09-16-2021 Episodic Other non-traumatic joint disorders (3 sources) Arthralgia of the ankle and/or foot; Translations: [Pain in right ankle and joints of right foot] Onset: 09-16-2021 07-23-2024 Episodic Other nutritional; endocrine; and metabolic disorders (20 sources) Morbid obesity; Translations: [Morbid (severe) obesity due to excess calories] Onset: 08-11-2023 Resolved: 08-27-2024 08-11-2023 Chronic Other nutritional; endocrine; and metabolic disorders (7 sources) Body mass index 30+ - obesity; Translations: [Body mass index (BMI) 39.0-39.9, adult] Onset: 07-23-2024 Resolved: 07-23-2024 09-12-2023 Chronic Other nutritional; endocrine; and metabolic disorders (12 sources) Obesity caused by energy imbalance; Translations: [Other obesity due to excess calories] Onset: 09-16-2021 Resolved: 07-23-2024 03-03-2024 Chronic Residual codes; unclassified (20 sources) Hypersomnia; Translations: [Hypersomnia, unspecified] Onset: 03-03-2024 Resolved: 05-15-2024 03-03-2024 Chronic Residual codes; unclassified (1 source) Family history of malignant neoplasm of trachea, bronchus and lung; Translations: [FAM HX MALIG NEOPLSM TRACH BRON LNG] Onset: 11-12-2021 Episodic Residual codes; unclassified (1 source) Asymptomatic menopausal state; Translations: [ASYMPTOMATIC MENOPAUSAL STATE] Onset: 09-16-2021 Episodic Residual codes; unclassified (20 sources) Edema of lower extremity; Translations: [Localized edema] Onset: 08-11-2023 08-11-2023 Episodic Residual codes; unclassified (3 sources) Menopause present; Translations: [Asymptomatic menopausal state] Onset: 09-16-2021 07-23-2024 Episodic Unclassified (1 source) COUGH, UNSPECIFIED; Translations: [COUGH, UNSPECIFIED] Onset: 02-22-2022 Results Test Name Value Interpretation Reference Range Facility ALL CBC WITH AUTO DIFFon BASOPHILS ABSOLUTE AUTO 0 [facility] Basophils/100 WBC (Bld) 0.4 % 0.2 - 2.0 % [facility] Eosinophils/100 WBC (Bld) 3.5 % 0.9 - 7.0 % [facility] Erythrocyte distribution width (RBC) [Ratio] 12.8 % 11.0 - 15.0 % [facility] Hematocrit (Bld) [Volume fraction] 39.2 % 36.0 - 48.0 % [facility] Hemoglobin (Bld) [Mass/Vol] 13.1 g/dL 12.0 - 16.0 g/dL [facility] IMMATURE GRANULOCYTES ABS AUTO 0.09 High [facility] Immature granulocytes/100 WBC (Bld) 1.3 % High 0.0 - 0.5 % [facility] Interpretation and review of laboratory results Abnormal [facility] LYMPHOCYTES ABSOLUTE AUTO 1.2 [facility] Lymphocytes/100 WBC (Bld) 18.3 % Low 20.5 - 60.0 % [facility] MCH (RBC) [Entitic mass] 31.9 pg 26.7 - 34.0 pg [facility] MCHC (RBC) [Mass/Vol] 33.4 g/dL 29.9 - 35.2 g/dL [facility] MCV (RBC) [Entitic vol] 95.4 fL 81.0 - 99.0 fL [facility] MONOCYTES ABSOLUTE AUTO 0.4 [facility] Monocytes/100 WBC (Bld) 6.5 % 1.7 - 12.0 % [facility] NEUTROPHILS ABSOLUTE AUTO 4.7 [facility] Neutrophils/100 WBC (Bld) 70 % 43.0 - 75.0 % [facility] Platelet mean volume (Bld) [Entitic vol] 10.6 fL 9.5 - 13.5 fL [facility] EO # 0.2 [facility] PLT 194 [facility] TB RBC 4.11 Low [facility] WBC 6.8 [facility] CNOVon 08-07-2024 CN Office Visit (ARNOLDO ) KARYN,SHEY ([id number]) 1950 F Date Time Provider Department 08/07/24 2:00 PM KATARZYNA SNYDER During your visit today, we recorded the following information about you: Temperature Pulse Blood pressure Weight 97.6 degrees 75/minute 151/72 92.1 kg Height 1.626 m Olga Lidia Blake MA 08/07/2024 3:37 PM Signed What is the reason for your visit today? Post op Who is your referring physician? Dr. Snyder Are you having poor oral intake? NO Have you had unintentional weight loss of 15 lbs/7 Kg in the last 3-6 months? NO Bowels: constipated, diarrhea, or regular Wound: clean AND dry Temperature: No Drains: No Katarzyna Snyder APRN.CNP 08/07/2024 3:37 PM Signed [facility] Clinic Date: August 07, 2024 Shey Boss 73 year old female CHIEF COMPLAINT: Patient presents for follow up from surgery. HPI: Here for follow up after laparoscopic paraesophageal hernia repair on 07/24/[address] Boyd. Current Diet: Full liquid Dysphagia: Denies Food regurgitation: Denies Acid Reflux/Heartburn: Denies ; still taking Protonix and Pepcid daily Pain: Some mild pain in LUQ. Taking Tylenol. Does not want an oxycodone refill Incisional Drainage: Denies Incisional Erythema: Denies Fever/Chills: Denies Increased Heart Rate: Denies Constipation: Denies Diarrhea: Resolved Nausea/Vomiting: Denies Difficulty Voiding: Denies Decreased Urine Output: Denies Shortness of Breath: Denies Cough / Wheezing: Baseline - cough and hoarseness - has slightly improved since surgery Calf/Thigh pain or swelling: Denies Present Activity level: Walking Surgery Date and Procedure: 07/24/2024 Laparoscopic paraesophageal hernia repair Randomized Controlled Trial: MVP Trial: Mesh Vs Pledgets for repair of paraesophageal hernia repair: a randomized, blinded, parallel group trial Current Medications: Current Outpatient Medications Medication Sig Dispense Refill acetaminophen (TYLENOL EXTRA STRENGTH) 500 mg tablet Take 2 tablets by mouth every 6 hours as needed for pain. docusate sodium (COLACE) 100 mg capsule Take 1 capsule by mouth two times a day as needed for constipation. tiotropium bromide (SPIRIVA RESPIMAT INHALATION) Inhale as instructed. ALBUTEROL INHALATION Inhale as instructed. Vitamin E, dl, acetate, (VITAMIN E) 400 unit capsule Take 1 capsule by mouth. aspirin 81 mg cap Take 81 mg by mouth. atorvastatin (LIPITOR) 40 mg tablet Take 40 mg by mouth. calcium carbonate (CALTRATE) 600 mg calcium (1,500 mg) tab Take 1 tablet by mouth. Cholecalciferol, Vitamin D3, 25 mcg (1,000 unit) cap Take 1 capsule by mouth. donepezil (ARICEPT) 5 mg tablet Take 5 mg by mouth daily at bedtime. famotidine (PEPCID) 40 mg tablet Take 1 tablet by mouth. fluticasone (FLONASE) 50 mcg/actuation nasal spray 2 Sprays once daily. losartan (COZAAR) 50 mg tablet Take 50 mg by mouth. pantoprazole DR (PROTONIX) 40 mg tablet Take 40 mg by mouth. Zolpidem (AMBIEN CR) 12.5 mg CR tablet Take 12.5 mg by mouth. No current facility-administered medications for this visit. REVIEW OF SYSTEMS: CONSTITUTIONAL: Patient denies fevers, chills, sweats CARDIOVASCULAR: Patient denies chest pains, palpitations RESPIRATORY: No dyspnea on exertion, no wheezing. Cough GI: No diarrhea. No constipation. No nausea/vomiting. MUSCULOSKELETAL: No new myalgias or arthralgias. DERMATOLOGIC: Patient denies any rashes or skin changes. PHYSICAL EXAM: BP 151/72 Pulse 75 Temp 36.4 ?C (97.6 ?F) (Temporal) Ht 162.6 cm (5' 4 ) Wt 92.1 kg (203 lb) BMI 34.84 kg/m? GENERAL: No apparent distress. Pt is alert and oriented x3. LUNGS: Lungs clear and equal. No wheezing HEART: Regular rate and rhythm without murmur. No leg edema ABDOMEN: Soft, nontender, and nondistended. Positive bowel sounds. EXTREMITIES: Without any cyanosis, clubbing, rash, lesions or edema. INCISIONS: Clean, dry, intact, well approximated. No s/s of infection. SURGICAL PATHOLOGY: N/A ASSESSMENT/PLAN: 1. Postoperative visit - ICD9: V58.49, ICD10: Z48.89 -Recovering well -Advance diet from full liquid to soft for 4 weeks then advance to regular as tolerated -May wait to try multivitamin and vitamin C for 2 more weeks due to size -Continue using Tylenol PRN for LUQ pain -Can try and wean off of Protonix and Pepcid (every other day for 1 week, every 3 days for 1 week..etc) -Increase activity as tolerated -Plan for follow up in 1 year, CT chest to be completed prior to appointment Katarzyna Snyder, MSN, COIL BUILDER August 07, 2024 Referring Provider: BARI CASTILLO [[id number]] Allergies As of Date: 08/07/2024 (No Known Allergies) Date Reviewed: 08/07/2024 Reviewed by: Olga Lidia Blake MA - Fully Assessed Reason for Visit: Post Op [174] Primary Visit Diagnosis:Postoperative visit [Z (more content not included)... Normal [facility] Basic metabolic 2000 panelon 07-26-2024 Anion gap [Moles/Vol] 12 mmol/L Normal 8-15 [facility] Comment on above: Order Comment: Speci men Type: BLOOD SPECIMEN Ordering Facility: [facility] Address: [address] [place] [address] Performed By: #### 2 4321-2, HSTNT, 08879-9, 2777-1 #### [facility] CLIA [id number] [address] [place] [address] [place] [address] [place] Calcium [Mass/Vol] 9.0 mg/dL Normal 8.5-10.2 [facility] Comment on above: Order Comment: Speci men Type: BLOOD SPECIMEN Ordering Facility: [facility] Address: [address] [place], [place] [address] Performed By: #### 2 4321-2, HSTNT, , 2776-07 #### [facility] CLIA [id number] [address] [place], [place] [id number] [place] Chloride [Moles/Vol] 107 mmol/L Normal 98-107 [facility] Comment on above: Order Comment: Speci men Type: BLOOD SPECIMEN Ordering Facility: [facility] Address: [address] [place] [address] Performed By: #### 2 4321-2, HSTNT, , 2776-07 #### [facility] CLIA [id number] [address] [place] [address] [place] CO2 [Moles/Vol] 24 mmol/L Normal 22-30 [facility] Comment on above: Order Comment: Speci men Type: BLOOD SPECIMEN Ordering Facility: [facility] Address: [address] [place] [address] Performed By: #### 2 4321-2, HSTNT, , 2776-07 #### [facility] CLIA [id number] [address] [place] [address] [place] Creatinine [Mass/Vol] 0.92 mg/dL Normal 0.58-0.96 [facility] Comment on above: Order Comment: Speci men Type: BLOOD SPECIMEN Ordering Facility: [facility] Address: [address] [place], [place] [address] Performed By: #### 2 4321-2, HSTNT, , 2776-07 #### [facility] CLIA [id number] [address] [place] [address] [place] Creatinine and Glomerular filtration rate.predicted panel (S/P/Bld) 66 mL/min/1.73m??? Normal >=60 [facility] Comment on above: Order Comment: Fabiola bliss Type: BLOOD SPECIMEN Ordering Facility: [facility] Address: [address] [place] [address] Result Comment: Ira mated Glomerular Filtration Rate (eGFR) is calculated using the 2020 CKD-EPI creatinine equation. This equation utilizes serum creatinine, sex, and age as parameters. The creatinine assay has traceable calibration to isotope dilution-mass spectrometry. Refer to KDIGO guidelines for clinical interpretation. In patients with unstable renal function, e.g. those with acute kidney injury, the eGFR may not accurately reflect actual GFR. Performed By: #### 2 4321-2, HSTNT, , 2776-07 #### [facility] CLIA [id number] [address] [place] [address] [place] Glucose [Mass/Vol] 112 mg/dL High 74-99 [facility] Comment on above: Order Comment: Fabiola bliss Type: BLOOD SPECIMEN Ordering Facility: [facility] Address: [address] [place] [address] Result Comment: The [place] Diabetes Association (ADA) provides guidance for cutoff values for fasting glucose and random glucose. The ADA defines fasting as no caloric intake for at least 8 hours. Fasting plasma glucose results between 100 to 125 mg/dL indicate increased risk for diabetes (prediabetes). Fasting plasma glucose results greater than or equal to 126 mg/dL meet the criteria for diagnosis of diabetes. In the absence of unequivocal hyperglycemia, results should be confirmed by repeat testing. In a patient with classic symptoms of hyperglycemia or hyperglycemic crisis, random plasma glucose results greater than or equal to 200 mg/dL meet the criteria for diagnosis of diabetes. Reference: Standards of Medical Care in Diabetes 2016, [place] [employer] Association. Diabetes Care. 2016.39(Suppl 1). Performed By: #### 2 4321-2, HSTNT, , 2776-07 #### [facility] CLIA [id number] [address] [place] [address] [place] Potassium [Moles/Vol] 3.4 mmol/L Low 3.7-5.1 [facility] Comment on above: Order Comment: Speci men Type: BLOOD SPECIMEN Ordering Facility: [facility] Address: [address] [place] [address] Performed By: #### 2 4321-2, HSTNT, , 2776-07 #### [facility] CLIA [id number] [address] [place] [address] [place] Sodium [Moles/Vol] 143 mmol/L Normal 136-144 [facility] Comment on above: Order Comment: Speci men Type: BLOOD SPECIMEN Ordering Facility: [facility] Address: [address] [place] [address] Performed By: #### 2 4321-2, HSTNT, , 2776-07 #### [facility] CLIA [id number] [address] [place] [address] [place] Urea nitrogen [Mass/Vol] 10 mg/dL Normal 7-21 [facility] Comment on above: Order Comment: Speci men Type: BLOOD SPECIMEN Ordering Facility: [facility] Address: [address] [place] [address] Performed By: #### 2 4321-2, HSTNT, , 2776-07 #### [facility] CLIA [id number] [address] [place] [address] [place] CASE MANAGEMon 07-26-2024 CASE MANAGEM HNO ID: [id number] Author: KRISTIE DIAZ, ? Service: ? Author Type: ? Type: Care Mgt Progress Note Filed: 07/26/2024 11:58 Note Text: CARE MANAGEMENT PROGRESS NOTE SERVICE DATE: 07/26/2024 SERVICE TIME: 11:57 AM LOS: 2 days IMM Follow Up Copy Given: Yes Copy given to:: Patient Method: In Person SIGNATURE: Kristie Diaz CMA PATIENT NAME: Shey Boss DATE: July 26, 2024 TIME: 11:57 AM Normal [facility] CBC W Auto Differential pane l (Bld)on 07-26-2024 Basophils (Bld) [#/Vol] 10*3/uL Normal <0.11 [facility] Comment on above: Order Comment: Speci men Type: BLOOD SPECIMEN Ordering Facility: [facility] Address: [address] [place] [address] Performed By: #### 2 4321-2, HSTNT, , 2776-07 #### [facility] CLIA [id number] [address] [place] [address] [place] Basophils/100 WBC (Bld) 0.3 % Normal [facility] Comment on above: Order Comment: Speci men Type: BLOOD SPECIMEN Ordering Facility: [facility] Address: [address] [place] [address] Performed By: #### 2 4321-2, HSTNT, , 2776-07 #### [facility] CLIA [id number] [address] [place] [address] [place] Differential cell count method Nom (Bld) Auto Normal [facility] Comment on above: Order Comment: Speci men Type: BLOOD SPECIMEN Ordering Facility: [facility] Address: [address] [place] [address] Performed By: #### 2 4321-2, HSTNT, , 2776-07 #### [facility] CLIA [id number] [address] [place] [address] [place] Eosinophils (Bld) [#/Vol] 0.08 10*3/uL Normal <0.46 [facility] Comment on above: Order Comment: Speci men Type: BLOOD SPECIMEN Ordering Facility: [facility] Address: [address] [place] [address] Performed By: #### 2 4321-2, HSTNT, , 2776-07 #### [facility] CLIA [id number] [address] [place] [address] [place] Eosinophils/100 WBC (Bld) 1.3 % Normal [facility] Comment on above: Order Comment: Speci men Type: BLOOD SPECIMEN Ordering Facility: [facility] Address: [address] [place] [address] Performed By: #### 2 4321-2, HSTNT, , 2776-07 #### [facility] CLIA [id number] [address] [place] [address] [place] Erythrocyte distribution width (RBC) [Ratio] 13.9 % Normal 11.5-15.0 [facility] Comment on above: Order Comment: Speci men Type: BLOOD SPECIMEN Ordering Facility: [facility] Address: [address] [place] [address] Performed By: #### 2 4321-2, HSTNT, , 2776-07 #### [facility] CLIA [id number] [address] [place] [address] [place] Hematocrit (Bld) [Volume fraction] 35.1 % Low 36.0-46.0 [facility] Comment on above: Order Comment: Speci men Type: BLOOD SPECIMEN Ordering Facility: [facility] Address: [address] [place] [address] Performed By: #### 2 4321-2, HSTNT, , 2776-07 #### [facility] CLIA [id number] [address] [place] [address] [place] Hemoglobin (Bld) [Mass/Vol] 12.2 g/dL Normal 11.5-15.5 [facility] Comment on above: Order Comment: Speci men Type: BLOOD SPECIMEN Ordering Facility: [facility] Address: [address] [place] [address] Performed By: #### 2 4321-2, HSTNT, , 2776-07 #### [facility] CLIA [id number] [address] [place] [address] [place] Immature granulocytes (Bld) [#/Vol] 0.04 10*3/uL Normal <0.10 [facility] Comment on above: Order Comment: Speci men Type: BLOOD SPECIMEN Ordering Facility: [facility] Address: [address] [place] [address] Performed By: #### 2 4321-2, HSTNT, , 2776-07 #### [facility] CLIA [id number] [address] [place] [address] [place] Immature granulocytes/100 WBC (Bld) 0.7 % Normal [facility] Comment on above: Order Comment: Speci men Type: BLOOD SPECIMEN Ordering Facility: [facility] Address: [address] [place] [address] Performed By: #### 2 4321-2, HSTNT, , 2776-07 #### [facility] CLIA [id number] [address] [place] [address] [place] Lymphocytes (Bld) [#/Vol] 1.90 10*3/uL Normal 1.00-4.00 [facility] Comment on above: Order Comment: Speci men Type: BLOOD SPECIMEN Ordering Facility: [facility] Address: [address] [place] [address] Performed By: #### 2 4321-2, HSTNT, , 2776-07 #### [facility] CLIA [id number] [address] [place] [address] [place] Lymphocytes/100 WBC (Bld) 30.9 % Normal [facility] Comment on above: Order Comment: Speci men Type: BLOOD SPECIMEN Ordering Facility: [facility] Address: [address] [place] [address] Performed By: #### 2 4321-2, HSTNT, , 2776-07 #### [facility] CLIA [id number] [address] [place] [address] [place] MCH (RBC) [Entitic mass] 32.9 pg Normal 26.0-34.0 [facility] Comment on above: Order Comment: Speci men Type: BLOOD SPECIMEN Ordering Facility: [facility] Address: [address] [place] [address] Performed By: #### 2 4321-2, HSTNT, , 2776-07 #### [facility] CLIA [id number] [address] [place] [address] [place] MCHC (RBC) [Mass/Vol] 34.8 g/dL Normal 30.5-36.0 [facility] Comment on above: Order Comment: Speci men Type: BLOOD SPECIMEN Ordering Facility: [facility] Address: [address] [place] [address] Performed By: #### 2 4321-2, HSTNT, , 2776-07 #### [facility] CLIA [id number] [address] [place] [address] [place] MCV (RBC) [Entitic vol] 94.6 fL Normal 80.0-100.0 [facility] Comment on above: Order Comment: Speci men Type: BLOOD SPECIMEN Ordering Facility: [facility] Address: [address] [place] [address] Performed By: #### 2 4321-2, HSTNT, , 2776-07 #### [facility] CLIA [id number] [address] [place] [address] [place] Monocytes (Bld) [#/Vol] 0.46 10*3/uL Normal <0.87 [facility] Comment on above: Order Comment: Speci men Type: BLOOD SPECIMEN Ordering Facility: [facility] Address: [address] [place] [address] Performed By: #### 2 4321-2, HSTNT, , 2776-07 #### [facility] CLIA [id number] [address] [place] [address] [place] Monocytes/100 WBC (Bld) 7.5 % Normal [facility] Comment on above: Order Comment: Speci men Type: BLOOD SPECIMEN Ordering Facility: [facility] Address: [address] [place] [address] Performed By: #### 2 4321-2, HSTNT, 70435-2, 7-1 #### [facility] CLIA [id number] [address] [place] [address] [place] Neutrophils (Bld) [#/Vol] 3.64 10*3/uL Normal 1.45-7.50 [facility] Comment on above: Order Comment: Speci men Type: BLOOD SPECIMEN Ordering Facility: [facility] Address: [address] [place] [address] Performed By: #### 2 4321-2, HSTNT, , 2776- #### [facility] CLIA [id number] [address] [place] [address] [place] Neutrophils/100 WBC (Bld) 59.3 % Normal [facility] Comment on above: Order Comment: Speci men Type: BLOOD SPECIMEN Ordering Facility: [facility] Address: [address] [place] [address] Performed By: #### 2 4321-2, HSTNT, , 2776- #### [facility] CLIA [id number] [address] [place] [address] [place] Nucleated RBC (Bld) [#/Vol] 10*3/uL Normal <0.01 [facility] Comment on above: Order Comment: Speci men Type: BLOOD SPECIMEN Ordering Facility: [facility] Address: [address] [place] [address] Performed By: #### 2 4321-2, HSTNT, , 2776-1 #### [facility] CLIA [id number] [address] [id number] [address] [place] Nucleated RBC/100 WBC (Bld) [Ratio] 0.0 /100 WBC Normal [facility] Comment on above: Order Comment: Speci men Type: BLOOD SPECIMEN Ordering Facility: [facility] Address: [address] [place] [address] Performed By: #### 2 4321-2, HSTNT, 07663-2, 2776- #### [facility] CLIA [id number] [address] [place] [address] [place] Platelet mean volume (Bld) [Entitic vol] 9.9 fL Normal 9.0-12.7 [facility] Comment on above: Order Comment: Speci men Type: BLOOD SPECIMEN Ordering Facility: [facility] Address: [address] [place] [address] Performed By: #### 2 4321-2, HSTNT, , 2776- #### [facility] CLIA [id number] [address] [place] [address] [place] Platelets (Bld) [#/Vol] 143 10*3/uL Low 150-400 [facility] Comment on above: Order Comment: Speci men Type: BLOOD SPECIMEN Ordering Facility: [facility] Address: [address] [place] [address] Performed By: #### 2 4321-2, HSTNT, , 2776- #### [facility] CLIA [id number] [address] [place] [address] [place] RBC (Bld) [#/Vol] 3.71 10*6/uL Low 3.90-5.20 [facility] Comment on above: Order Comment: Speci men Type: BLOOD SPECIMEN Ordering Facility: [facility] Address: [address] [place] [address] Performed By: #### 2 4321-2, HSTNT, , 2776- #### [facility] CLIA [id number] [address] [place] [address] [place] WBC (Bld) [#/Vol] 6.14 10*3/uL Normal 3.70-11.00 [facility] Comment on above: Order Comment: Speci men Type: BLOOD SPECIMEN Ordering Facility: [facility] Address: [address] [place] [address] Performed By: #### 2 4321-2, HSTNT, 81838-1, 2777-1 #### [facility] CLIA [id number] [address] [place] [address] [place] CNCOon 07-26-2024 CNCO Letter Text Normal [facility] CNDSon 07-26-2024 CNDS HNO ID: [id number] Author: KASSY VERDE APRN.COIL BUILDER Service: General Surgery Author Type: Nurse Practitioner Type: Discharge Summary Filed: 07/26/2024 09:05 Note Text: Attestation signed by Xavier Boyd MD at 07/26/2024 4:32 PM Attending Note I evaluated the patient and personally participated in the bowles components. I agree with the resident's findings and plan as documented and have discussed the case and management of the patient's care with the resident. Signature: Xavier Boyd MD Date: 07/26/2024 Time: 4:32 PM GENERAL SURGERY DISCHARGE SUMMARY PATIENT NAME: Shey Boss ADMISSION DATE: 07/24/2024 DISCHARGE DATE: 07/26/2024 ATTENDING PHYSICIAN: Xavier Boyd* Code Status: Not on file Highest Readmission Risk Score: 10 The 30 day readmissions risk score is derived from an internally validated risk model which evaluates patient level characteristics, utilization history, medication orders and lab results up until the day of discharge. Patients with a score of 40 or above are considered highest risk for readmission. Specific patient level drivers will be listed at the bottom of the summary. REASON FOR HOSPITALIZATION: Surgery and recovery OPERATIONS DURING HOSPITALIZATION: Laparoscopic paraesophageal hernia repair PROCEDURES DURING HOSPITALIZATION: IV access Intubation for surgery Anesthesia administration UGI HOSPITAL COURSE: Shey Boss is a 73-year-old female with a PMHx of COPD, former smoker, EDWIN, HTN, GERD, dyslipidemia, TIA, memory loss, chronic back pain and insomnia who presented on 07/24/2024 for a paraesophageal hernia repair with Dr. Boyd. See operative report for details. She recovered in the PACU and transferred to the [facility] for the remainder of her postoperative care. She was started on IV pain medications and remained NPO postoperatively. Her hospital course is as follows: 07/25 - POD 1, NPO. Underwent UGI study showing gastric distention, no leak. Ok to advance to CLD. Rdz removed. 07/26- Tolerating CLD, advanced to FLD. Discharged in stable condition on 2 weeks of FLD. PHYSICAL EXAM: BP 159/65 Pulse 80 Temp 36.5 ?C (97.7 ?F) (Oral) Resp 18 Ht 162.6 cm (5' 4 ) Wt 102.3 kg (225 lb 8.5 oz) SpO2 97% BMI 38.71 kg/m? Gen: Alert, awake, oriented. NAD. Resp: Chest rise symmetrical. Breathing non labored. Card: Well perfused, no edema Abd: Soft, appropriately tender. Distention much improved. Incision sites well approximated with skin glue in place over port sites. Active Hospital Problems Diagnosis Date Noted Paraesophageal hernia 04/29/2024 Obesity, Class II, BMI 35-39.9 07/24/2024 S/P repair of paraesophageal hernia 07/24/2024 Acute postoperative pain 07/24/2024 HTN (hypertension) 07/23/2024 GERD (gastroesophageal reflux disease) 07/23/2024 Chronic back pain 07/23/2024 Memory loss 07/23/2024 EDWIN (obstructive sleep apnea) 08/11/2023 Dyslipidemia 08/11/2023 COPD (chronic obstructive pulmonary disease) (HCC) 08/11/2023 Primary insomnia 08/11/2023 TIA (transient ischemic attack) 08/11/2023 Resolved Hospital Problems No resolved problems to display. Transitions of Care Critical Issues: - FLD x2 weeks until post op follow up LABS AND PROCEDURES PENDING AT DISCHARGE: No pending results. CONSULTING TEAMS DURING HOSPITALIZATION: None Treatment Team: Attending Provider: Xavier Boyd MD Primary Service: CHERRI TAYLOR PATIENT CONDITION AT DISCHARGE: Stable DISCHARGE DISPOSITION: Home with Self Care INFORMATION PROVIDED TO PATIENT: DCI DIET: Resume pre-hospital diet Full Liquid Diet: Includes clear liquids plus cream soup, puddings, and milk ACTIVITY: Lifting is restricted to: less than 10 lbs for 4-6 weeks May bathe and shower No walking restrictions No driving while on narcotics May use stairs WOUND/SURGICAL SITE CARE: Leave open to air ALLERGIES No Known Allergies DISCHARGE MEDICATION: Medication List START taking these medications acetaminophen 500 mg tablet Commonly known as: TYLENOL EXTRA STRENGTH Take 2 tablets by mouth every 6 hours as needed for pain. docusate sodium 100 mg capsule Commonly known as: COLACE Take 1 capsule by mouth two times a day as needed for constipation. ondansetron 4 mg tablet Commonly known as: ZOFRAN Take 1 tablet by mouth every 8 hours as needed for nausea/vomiting for up to 7 days. oxyCODONE IR 5 mg immediate release tablet Commonly known as: ROXICODONE Take 1 tablet by mouth every 6 hours as needed for pain for up to 3 days. CONTINUE taking these medications ALBUTEROL INHALATION aspirin 81 mg Cap atorvastatin 40 mg tablet Commonly known as: LIPITOR calcium carbonate 600 mg calcium (1,500 mg) Tab Commonly know (more content not included)... Normal [facility] Magnesium SerPl-mCncon 07-26 Magnesium [Mass/Vol] 2.0 mg/dL Normal 1.7-2.3 [facility] Comment on above: Order Comment: Speci men Type: BLOOD SPECIMEN Ordering Facility: [facility] Address: [address] [place] [address] [place] [address] Performed By: #### 2 4321-2, HSTNT, 06993-6, 2776- #### [facility] CLIA [id number] [address] [place] [address] [place] PT EDon 07-26-2024 PT ED HNO ID: [id number] Author: NOREEN RODNEY DTR Service: Nutrition Therapy Author Type: Diploma Dental Assistant Type: Patient Education Filed: 07/26/2024 14:04 Note Text: NUTRITION THERAPY PATIENT EDUCATION SERVICE DATE: 07/26/2024 SERVICE TIME: 950 TOPIC: Diet: Low Acid and Easy to Swallow Diet LEARNING ASSESSMENT Individuals Assessed: Patient Preferred Learning Method: Individual Instruction, Verbal Instruction, and Written Instruction Barriers to Learning: None Evident LEARNING RESPONSE Instruction Provided to: Patient Patient / Family Response: Performs Independently and Verbalizes Understanding Method of Instruction: Individual instruction Written instruction/Handouts Verbal instruction Material(s) Provided to Patient: Education Materials Provided Nutrition Education CCHS: Low Acid and Easy to Swallow Diet Follow-Up Plan: Complete - No need for follow-up Patient instructed to call with any further issues Contact information given. MNT Billing: $ Routine Care : 16-30 minutes SIGNATURE: Noreen Rodney DTR PATIENT NAME: Shey Boss DATE: July 26, 2024 TIME: 2:04 PM PAGER: Normal [facility] Phosphate SerPl-mCncon 07-26 Phosphate [Mass/Vol] 2.5 mg/dL Low 2.7-4.8 [facility] Comment on above: Order Comment: Speci men Type: BLOOD SPECIMEN Ordering Facility: [facility] Address: [address] [place] [address] Performed By: #### 2 4321-2, HSTNT, 18215-6, 2776-07 #### [facility] CLIA [id number] [address] [place] [address] [place] HIGH SENSITIVITY TROPONIN To n 07-25-2024 Troponin T.cardiac High sensitivity method [Mass/Vol] 12 ng/L High <12 [facility] Comment on above: Order Comment: Speci men Type: BLOOD SPECIMEN Ordering Facility: [facility] Address: [address] [place] [address] Performed By: #### 2 4321-2, HST, 53701-4, 2777-1 #### [facility] CLIA [id number] [address] [place] [address] [place] [address] [place] XR UPPER GI SINGLE CONTRASTo n 07-25-2024 XR UPPER GI SINGLE CONTRAST * * *Final Report* * * DATE OF EXAM: Jul 25 2024 10:04AM HGX [id number] - XR UPPER GI SINGLE CONTRAST / PROCEDURE REASON: Assess for postoperative complication or leak * * * * Physician Interpretation * * * * SINGLE CONTRAST UPPER GI HISTORY: Post paraesophageal hernia repair. COMPARISON: Chest radiograph 07/23/2024. TECHNIQUE: The patient ingested water-soluble contrast followed by low density barium under intermittent fluoroscopic monitoring. Contrast: ORAL: 40 ml of OMNIPAQUE 350 ORAL: 40 ml of EZPAQUE Fluoroscopy radiation summary: Fluoroscopy time: 2:24 (min:sec). Air kerma: 38.9 mGy. RESULT: Preliminary metal turner: Gastric distention. No dilated bowel in the included field of view. Minimal pneumoperitoneum, expected postsurgically. Luminal contrast transits to the stomach without leak or obstruction. Moderate delayed distal esophageal emptying, with narrowing at the GE junction. This is likely secondary to postoperative edema. Staff Physician: Martha Catalan M.D. was present for the critical portions of the procedure and was immediately available throughout the remainder of the procedure. IMPRESSION: NO LEAK OR OBSTRUCTION. DELAYED ESOPHAGEAL TRANSIT, LIKELY RELATED TO POSTOPERATIVE EDEMA. Solar Pv Installer: PSCCandis Transcribe Date/Time: Jul 25 2024 10:06A Dictated by : NAHID PACHECO MD This examination was interpreted and the report reviewed and electronically signed by: MARTHA CATALAN MD on Jul 25 2024 10:13AM EST [id number] Normal [facility] ANES POSTPROC EVALon 025 ANES POSTPROC EVAL HNO ID: [id number] Author: FLOR SNOW MD Service: ? Author Type: Physician Type: Anesthesia Postprocedure Evaluation Filed: 07/24/2024 15:38 Note Text: POST ANESTHESIA EVALUATION NOTE : 1950 Procedure Summary Date: 07/24/24 Room / Location: [facility] Anesthesia Start: 1055 Anesthesia Stop: 1430 Procedure: LAPAROSCOPIC RPR PARAESOPHAGEAL HERNIA W/O FUNDOPLASTY W/ MESH (Abdomen) Diagnosis: Preoperative examination Paraesophageal hernia (Preoperative examination [Z01.818]) (Paraesophageal hernia [K44.9]) Surgeons: Xavier Boyd MD Responsible Provider: Flor Snow MD Anesthesia Type: general ASA Status: 4 Anesthesia Type: general Airway Type: ETT Last Vitals Vitals Value Taken Time BP 160/76 07/24/24 1531 Temp 36.5 ?C (97.7 ?F) 07/24/24 1430 Pulse 93 07/24/24 1536 Resp 20 07/24/24 1515 SpO2 99 % 07/24/24 1536 Vitals shown include unfiled device data. Post Anesthesia Patient Status Patient Evaluation: PACU. Anticipated Disposition: phase 2 then home. Neurological Status: aware and responsive. Pulmonary Status: breathing comfortably on room air Airway Control: returned to baseline unsupported. Cardiovascular Status: stable. Pain Management: clinically adequate Postoperative Hydration: acceptable. Intraoperative Events: no significant anesthesia events Post Operative Nausea/Vomiting Status: no significant post operative nausea or vomiting Recommendation: continue current plan of care. Anesthesia Observations No Documentation SIGNATURE: Flor Snow MD PATIENT NAME: Shey Boss DATE: July 24, 2024 TIME: 3:38 PM CSN: [id number] Normal [facility] ANES PRE-OPon 07-24-2024 ANES PRE-OP HNO ID: [id number] Author: FLOR SNOW MD Service: ? Author Type: Physician Type: Anesthesia Preprocedure Evaluation Filed: 07/24/2024 09:16 Note Text: ANESTHESIOLOGY DAY OF SURGERY NOTE : 1950 Procedure Information Date/Time: 07/24/24 1051 Procedure: LAPAROSCOPIC RPR PARAESOPHAGEAL HERNIA W/O FUNDOPLASTY W/ MESH (Abdomen) Location: [place] [address] [facility] Surgeons: Xavier Boyd MD Estimated body mass index is 37.45 kg/m? as calculated from the following: Height as of 07/23/24: 160 cm (5' 3 ). Weight as of 07/23/24: 95.9 kg (211 lb 6.7 oz). Most recent hematocrit and potassium results: Hematocrit 39.0 07/23/2024 Potassium 4.3 07/23/2024 Relevant Problems ANESTHESIA (+) EDWIN (obstructive sleep apnea) CARDIO (+) HTN (hypertension) GI (+) GERD (gastroesophageal reflux disease) (+) Hiatal hernia (+) Hiatal hernia with gastroesophageal reflux disease without esophagitis (+) Paraesophageal hernia NEURO-PSYCH (+) Personal history of urinary (tract) infections (+) Stroke (HCC) (+) TIA (transient ischemic attack) (+) Transient ischemic attack PULMONARY (+) COPD (chronic obstructive pulmonary disease) (HCC) (+) Chronic obstructive pulmonary disease (HCC) (+) Dyspnea, unspecified (+) EDWIN (obstructive sleep apnea) (+) Personal history of urinary (tract) infections (+) Shortness of breath I - PHYSICAL EVALUATION AIRWAY Patient intubated: No. Tracheostomy tube not present Mallampati: III. TM distance: >3 FB. Neck ROM: full ROM without neurological symptoms. Mouth opening: adequate. Short neck: yes. Thick neck: yes II - ANESTHESIA PLAN ASA Score: 4 Anesthetic Plan: general Airway type: ETT NPO Status: adequate Beta Martin Monitoring Plan Monitoring plan: standard ASA. Post Procedure Analgesic Plan Postoperative analgesic plan: multimodal analgesia. Informed Consent Anesthetic risks, benefits, alternatives, personnel and consent discussed: yes. Patient / Responsible Green Party agrees to proceed: yes Patient / Surrogate agrees to blood products: Yes Significant changes in the patient condition since the History and Physical, not otherwise documented in primary service progress note: no. Potential Anesthesia issues that may suggest increased risk of complications or contraindication to planned procedure: potential difficult intubation and potential difficult IV access. Vitals Value Taken Time BP 152/67 07/24/24900 Pulse 71 07/24/24900 Resp 18 07/24/24900 Temp 36.1 ?C (97 ?F) 07/24/24900 SpO2 96 % 07/24/24900 Facility-Administered Medications as of 07/24/2024 Medication Dose Route Frequency lidocaine (PF) 10 mg/mL (1 %) 1-2 mg injection (XYLOCAINE) 0.1-0.2 mL INTRADERMAL PRN Or lidocaine 1% 0.25 mL subcutaneous j-tip syringe (XYLOCAINE) 0.25 mL SUBCUTANEOUS PRN NaCl 0.9% iv flush bag 20 mL INTRAVENOUS PRN [COMPLETED] heparin 5,000 Units injection 5,000 Units SUBCUTANEOUS ONCE ceFAZolin iv piggyback 2 g in D5W (iso-osmotic) 100 mL (ANCEF) 2 g INTRAVENOUS Pre-Op Once midazolam (PF) 2 mg injection (VERSED) 2 mg INTRAVENOUS DAILY PRN [COMPLETED] famotidine 20 mg injection (PEPCID) 20 mg INTRAVENOUS Pre-Op Once Outpatient Medications as of 07/24/2024 Medication Sig Vitamin E, dl, acetate, (VITAMIN E) 400 unit capsule Take 1 capsule by mouth. aspirin 81 mg cap Take 81 mg by mouth. atorvastatin (LIPITOR) 40 mg tablet Take 40 mg by mouth. calcium carbonate (CALTRATE) 600 mg calcium (1,500 mg) tab Take 1 tablet by mouth. Cholecalciferol, Vitamin D3, 25 mcg (1,000 unit) cap Take 1 capsule by mouth. donepezil (ARICEPT) 5 mg tablet Take 5 mg by mouth daily at bedtime. famotidine (PEPCID) 40 mg tablet Take 1 tablet by mouth. fluticasone (FLONASE) 50 mcg/actuation nasal spray 2 Sprays once daily. losartan (COZAAR) 50 mg tablet Take [address]op[address] (PROTONIX) 40 mg tablet Take 40 mg by mouth. Zolpidem (AMBIEN CR) 12.5 mg CR tablet Take 12.5 mg by mouth. I have interviewed and examined the patient. I have reviewed the medical record and/or the pre-anesthesia evaluation, pertinent labs, and test results. This contains updated information obtained within 48 hours of Surgery/Procedure. SIGNATURE: Flor Snow MD PATIENT NAME: Shey Boss DATE: July 24, 2024 TIME: 9:15 AM CSN: [id number] [facility] BRIEF OP NOTon 07-24-2024 BRIEF OP NOT HNO ID: [id number] Author: YAN MOSER, ? Service: General Surgery Author Type: Physician Type: Brief Op Note Filed: 07/24/2024 14:16 Note Text: BRIEF OPERATIVE / PROCEDURE NOTE LOG ID: [id number] SURGERY/PROCEDURE DATE: 07/24/2024 INCISION/PROCEDURE START TIME: 11:37 AM INCISION CLOSE/PROCEDURE END TIME: 2:12 PM SURGEON(S)/PROCEDURALIS T(S) AND INDUCTION HEAT TREATER(S): Surgeons and Role: * Xavier Boyd MD - Primary * Nena Sepulveda MD - Resident - Assisting * Yan Moser - Fellow No Additional Staff SURGERY/PROCEDURE(S): Laparoscopic Paraesophageal Hernia Repair, Anterior Gastropexy ANESTHESIA: General FINDINGS: Large Paraesophageal Hernia ESTIMATED BLOOD LOSS: 15 mls SPECIMENS: * No specimens in log * COMPLICATIONS: None PRE-OP/PRE-PROCEDURE DIAGNOSIS: Paraesophageal hernia POST-OP/POST-PROCEDURE DIAGNOSIS: Paraesophageal hernia SIGNATURE: Yan Moser PATIENT NAME: Shey Boss DATE: July 24, 2024 TIME: 2:15 PM PAGER/CONTACT #: [phone] Normal [facility] Basic metabolic 2000 panelon 07-24-2024 Anion gap [Moles/Vol] 15 mmol/L Normal 8-15 [facility] Comment on above: Order Comment: Speci men Type: BLOOD SPECIMEN Ordering Facility: [facility] Address: [address] [place] [address] Performed By: #### 2 4321-2, HSTNT, , 2776-07 #### [facility] CLIA [id number] [address] [place] [address] [place] Calcium [Mass/Vol] 9.3 mg/dL Normal 8.5-10.2 [facility] Comment on above: Order Comment: Speci men Type: BLOOD SPECIMEN Ordering Facility: [facility] Address: [address] [place] [address] Performed By: #### 2 4321-2, HSTNT, , 2776-07 #### [facility] CLIA [id number] [address] [place] [address] [place] Chloride [Moles/Vol] 105 mmol/L Normal 98-107 [facility] Comment on above: Order Comment: Speci men Type: BLOOD SPECIMEN Ordering Facility: [facility] Address: [address] [place] [address] Performed By: #### 2 4321-2, HSTNT, , 7- #### [facility] CLIA [id number] [address] [place] [address] [place] CO2 [Moles/Vol] 21 mmol/L Low 22-30 [facility] Comment on above: Order Comment: Speci men Type: BLOOD SPECIMEN Ordering Facility: [facility] Address: [address] [place] [address] Performed By: #### 2 4321-2, HSTNT, , 2776- #### [facility] CLIA [id number] [address] [place] [address] [place] Creatinine [Mass/Vol] 0.83 mg/dL Normal 0.58-0.96 [facility] Comment on above: Order Comment: Speci men Type: BLOOD SPECIMEN Ordering Facility: [facility] Address: [address] [place] [address] Performed By: #### 2 4321-2, HSTNT, , 2776- #### [facility] CLIA [id number] [address] [place] [address] [place] Creatinine and Glomerular filtration rate.predicted panel (S/P/Bld) 75 mL/min/1.73m??? Normal >=60 [facility] Comment on above: Order Comment: Speci men Type: BLOOD SPECIMEN Ordering Facility: [facility] Address: [address] [place] [address] Result Comment: Ira mated Glomerular Filtration Rate (eGFR) is calculated using the 2020 CKD-EPI creatinine equation. This equation utilizes serum creatinine, sex, and age as parameters. The creatinine assay has traceable calibration to isotope dilution-mass spectrometry. Refer to KDIGO guidelines for clinical interpretation. In patients with unstable renal function, e.g. those with acute kidney injury, the eGFR may not accurately reflect actual GFR. Performed By: #### 2 4321-2, HSTNT, 2776-07 #### [facility] CLIA [id number] [address] [place] [address] [place] Glucose [Mass/Vol] 171 mg/dL High 74-99 [facility] Comment on above: Order Comment: Fabiola bliss Type: BLOOD SPECIMEN Ordering Facility: [facility] Address: [address] [place] [address] Result Comment: The [place] Diabetes Association (ADA) provides guidance for cutoff values for fasting glucose and random glucose. The ADA defines fasting as no caloric intake for at least 8 hours. Fasting plasma glucose results between 100 to 125 mg/dL indicate increased risk for diabetes (prediabetes). Fasting plasma glucose results greater than or equal to 126 mg/dL meet the criteria for diagnosis of diabetes. In the absence of unequivocal hyperglycemia, results should be confirmed by repeat testing. In a patient with classic symptoms of hyperglycemia or hyperglycemic crisis, random plasma glucose results greater than or equal to 200 mg/dL meet the criteria for diagnosis of diabetes. Reference: Standards of Medical Care in Diabetes 2016, [place] [employer] Association. Diabetes Care. 2016.39(Suppl 1). Performed By: #### 2 4321-2, HSTNT, 2776-07 #### [facility] CLIA [id number] [address] [place], [place] [id number] [place] Potassium [Moles/Vol] 4.0 mmol/L Normal 3.7-5.1 [facility] Comment on above: Order Comment: Fabiola bliss Type: BLOOD SPECIMEN Ordering Facility: [facility] Address: [address] [place] [address] Performed By: #### 2 4321-2, HSTNT, 2776-07 #### [facility] CLIA [id number] [address] [place] [address] [place] Sodium [Moles/Vol] 141 mmol/L Normal 136-144 [facility] Comment on above: Order Comment: Speci men Type: BLOOD SPECIMEN Ordering Facility: [facility] Address: [address] [place] [address] Performed By: #### 2 4321-2, HSTNT, , 2776- #### [facility] CLIA [id number] [address] [place] [address] [place] Urea nitrogen [Mass/Vol] 10 mg/dL Normal 7-21 [facility] Comment on above: Order Comment: Speci men Type: BLOOD SPECIMEN Ordering Facility: [facility] Address: [address] [place] [address] Performed By: #### 2 4321-2, HSTNT, , 277- #### [facility] CLIA [id number] [address] [place] [address] [place] CBC W Auto Differential pane l (Bld)on 07-24-2024 Basophils (Bld) [#/Vol] 10*3/uL Normal <0.11 [facility] Comment on above: Order Comment: Speci men Type: BLOOD SPECIMEN Ordering Facility: [facility] Address: [address] [place] [address] Performed By: #### 5 7021-8 #### [facility] CLIA [id number] [address] [place] [address] [place] Basophils/100 WBC (Bld) 0.3 % Normal [facility] Comment on above: Order Comment: Speci men Type: BLOOD SPECIMEN Ordering Facility: [facility] Address: [address] [place] [address] Performed By: #### 5 7021-8 #### [facility] CLIA [id number] [address] [place] [address] [place] Differential cell count method Nom (Bld) Auto Normal [facility] Comment on above: Order Comment: Speci men Type: BLOOD SPECIMEN Ordering Facility: [facility] Address: [address] [place] [address] Performed By: #### 5 7021-8 #### [facility] CLIA [id number] [address] [place] [address] [place] Eosinophils (Bld) [#/Vol] 10*3/uL Normal <0.46 [facility] Comment on above: Order Comment: Speci men Type: BLOOD SPECIMEN Ordering Facility: [facility] Address: [address] [place] [address] Performed By: #### 5 7021-8 #### [facility] CLIA [id number] [address] [place] [address] [place] Eosinophils/100 WBC (Bld) 0.0 % Normal [facility] Comment on above: Order Comment: Speci men Type: BLOOD SPECIMEN Ordering Facility: [facility] Address: [address] [place] [address] Performed By: #### 5 7021-8 #### [facility] CLIA [id number] [address] [place] [address] [place] Erythrocyte distribution width (RBC) [Ratio] 13.9 % Normal 11.5-15.0 [facility] Comment on above: Order Comment: Speci men Type: BLOOD SPECIMEN Ordering Facility: [facility] Address: [address] [place] [address] Performed By: #### 5 7021-8 #### [facility] CLIA [id number] [address] [place] [address] [place] Hematocrit (Bld) [Volume fraction] 38.8 % Normal 36.0-46.0 [facility] Comment on above: Order Comment: Speci men Type: BLOOD SPECIMEN Ordering Facility: [facility] Address: [address] [place] [address] Performed By: #### 5 7021-8 #### [facility] CLIA [id number] [address] [place] [address] [place] Hemoglobin (Bld) [Mass/Vol] 13.4 g/dL Normal 11.5-15.5 [facility] Comment on above: Order Comment: Speci men Type: BLOOD SPECIMEN Ordering Facility: [facility] Address: [address] [place] [address] Performed By: #### 5 7021-8 #### [facility] CLIA [id number] [address] [place] [address] [place] Immature granulocytes (Bld) [#/Vol] 10*3/uL Normal <0.10 [facility] Comment on above: Order Comment: Speci men Type: BLOOD SPECIMEN Ordering Facility: [facility] Address: [address] [place] [address] Performed By: #### 5 7021-8 #### [facility] CLIA [id number] [address] [place] [address] [place] Immature granulocytes/100 WBC (Bld) 0.3 % Normal [facility] Comment on above: Order Comment: Speci men Type: BLOOD SPECIMEN Ordering Facility: [facility] Address: [address] [place] [address] Performed By: #### 5 7021-8 #### [facility] CLIA [id number] [address] [place] [address] [place] Lymphocytes (Bld) [#/Vol] 0.48 10*3/uL Low 1.00-4.00 [facility] Comment on above: Order Comment: Speci men Type: BLOOD SPECIMEN Ordering Facility: [facility] Address: [address] [place] [address] Performed By: #### 5 7021-8 #### [facility] CLIA [id number] [address] [place] [address] [place] Lymphocytes/100 WBC (Bld) 6.7 % Normal [facility] Comment on above: Order Comment: Speci men Type: BLOOD SPECIMEN Ordering Facility: [facility] Address: [address] [place] [address] Performed By: #### 5 7021-8 #### [facility] CLIA [id number] [address] [place] [address] [place] MCH (RBC) [Entitic mass] 32.5 pg Normal 26.0-34.0 [facility] Comment on above: Order Comment: Speci men Type: BLOOD SPECIMEN Ordering Facility: [facility] Address: [address] [place] [address] Performed By: #### 5 7021-8 #### [facility] CLIA [id number] [address] [place] [address] [place] MCHC (RBC) [Mass/Vol] 34.5 g/dL Normal 30.5-36.0 [facility] Comment on above: Order Comment: Speci men Type: BLOOD SPECIMEN Ordering Facility: [facility] Address: [address] [place] [address] Performed By: #### 5 7021-8 #### [facility] CLIA [id number] [address] [place] [address] [place] MCV (RBC) [Entitic vol] 94.2 fL Normal 80.0-100.0 [facility] Comment on above: Order Comment: Speci men Type: BLOOD SPECIMEN Ordering Facility: [facility] Address: [address] [place] [address] Performed By: #### 5 7021-8 #### [facility] CLIA [id number] [address] [place] [address] [place] Monocytes (Bld) [#/Vol] 0.23 10*3/uL Normal <0.87 [facility] Comment on above: Order Comment: Speci men Type: BLOOD SPECIMEN Ordering Facility: [facility] Address: [address] [place] [address] Performed By: #### 5 7021-8 #### [facility] CLIA [id number] [address] [place] [address] [place] Monocytes/100 WBC (Bld) 3.2 % Normal [facility] Comment on above: Order Comment: Speci men Type: BLOOD SPECIMEN Ordering Facility: [facility] Address: [address] [place] [address] Performed By: #### 5 7021-8 #### [facility] CLIA [id number] [address] [place] [address] [place] Neutrophils (Bld) [#/Vol] 6.43 10*3/uL Normal 1.45-7.50 [facility] Comment on above: Order Comment: Speci men Type: BLOOD SPECIMEN Ordering Facility: [facility] Address: [address] [place] [address] Performed By: #### 5 7021-8 #### [facility] CLIA [id number] [address] [place] [address] [place] Neutrophils/100 WBC (Bld) 89.5 % Normal [facility] Comment on above: Order Comment: Speci men Type: BLOOD SPECIMEN Ordering Facility: [facility] Address: [address] [place] [address] Performed By: #### 5 7021-8 #### [facility] CLIA [id number] [address] [place] [address] [place] Nucleated RBC (Bld) [#/Vol] 10*3/uL Normal <0.01 [facility] Comment on above: Order Comment: Speci men Type: BLOOD SPECIMEN Ordering Facility: [facility] Address: [address] [place] [address] Performed By: #### 5 7021-8 #### [facility] CLIA [id number] [address] [place] [address] [place] Nucleated RBC/100 WBC (Bld) [Ratio] 0.0 /100 WBC Normal [facility] Comment on above: Order Comment: Speci men Type: BLOOD SPECIMEN Ordering Facility: [facility] Address: [address] [place] [address] Performed By: #### 5 7021-8 #### [facility] CLIA [id number] [address] [place] [address] [place] Platelet mean volume (Bld) [Entitic vol] 10.0 fL Normal 9.0-12.7 [facility] Comment on above: Order Comment: Speci men Type: BLOOD SPECIMEN Ordering Facility: [facility] Address: [address] [place] [address] Performed By: #### 5 7021-8 #### [facility] CLIA [id number] [address] [place] [address] [place] Platelets (Bld) [#/Vol] 144 10*3/uL Low 150-400 [facility] Comment on above: Order Comment: Speci men Type: BLOOD SPECIMEN Ordering Facility: [facility] Address: [address] [place] [address] Performed By: #### 5 7021-8 #### [facility] CLIA [id number] [address] [place] [address] [place] RBC (Bld) [#/Vol] 4.12 10*6/uL Normal 3.90-5.20 [facility] Comment on above: Order Comment: Speci men Type: BLOOD SPECIMEN Ordering Facility: [facility] Address: [address] [place] [address] Performed By: #### 5 7021-8 #### [facility] CLIA [id number] [address] [place] [address] [place] WBC (Bld) [#/Vol] 7.18 10*3/uL Normal 3.70-11.00 [facility] Comment on above: Order Comment: Speci men Type: BLOOD SPECIMEN Ordering Facility: [facility] Address: [address] [place] [address] Performed By: #### 5 7021-8 #### [facility] CLIA [id number] [address] [place] [address] [place] HIGH SENSITIVITY TROPONIN To n 07-24-2024 Troponin T.cardiac High sensitivity method [Mass/Vol] 8 ng/L Normal <12 [facility] Comment on above: Order Comment: Speci men Type: BLOOD SPECIMEN Ordering Facility: [facility] Address: [address] [place] [address] Performed By: #### 2 4321-2, HSTNT, 60695-2, 2776-1 #### [facility] CLIA [id number] [address] [place] [address] [place] Magnesium SerPl-mCncon 07-24 Magnesium [Mass/Vol] 1.7 mg/dL Normal 1.7-2.3 [facility] Comment on above: Order Comment: Speci men Type: BLOOD SPECIMEN Ordering Facility: [facility] Address: [address] [place] [address] Performed By: #### 2 4321-2, HSTNT, , 2776- #### [facility] CLIA [id number] [address] [place] [address] [place] OPERATIVE NOon 07-24-2024 OPERATIVE NO HNO ID: [id number] Author: XAVIER BOYD MD Service: General Surgery Author Type: Physician Type: Operative Report Filed: 07/24/2024 14:31 Note Text: OPERATIVE/PROCEDURE REPORT LOG ID: [id number] SURGERY/PROCEDURE DATE: 07/24/2024 INCISION/PROCEDURE START TIME: 11:37 AM INCISION CLOSE/PROCEDURE END TIME: 2:12 PM SURGEON(S)/PROCEDURALIS T(S) AND INDUCTION HEAT TREATER(S): Surgeons and Role: * Xavier Boyd MD - Primary * Nena Sepulveda MD - Resident - Assisting * Yan Moser - Fellow No Additional Staff SURGERY/PROCEDURE(S): Laparoscopic paraesophageal hernia repair ANESTHESIA: General SURGERY/PROCEDURE DETAILS: The patient was supine, padded and secured to the bed. Safety check performed. General anesthesia was induced. Rdz placed. The patient was then placed in split leg and secured to the bed. The abdomen was widely prepped and draped. A time out procedure was performed. The abdomen was entered in the right hypochondrium, utilizing a 5 mm optical-viewing trocar. Upon safe entry into the abdomen, it was insufflated completely. Under direct visualization, a 12 mm trocar was placed off of midline, 10 cm below the xiphoid process. 5 mm trocars were placed in the left and right subcostal regions. An construction project assistant 5 mm trocar was placed in the left lower abdomen. A 5 mm [facility] Mimi Flex liver retractor was placed through the lateral 5 mm trocar and utilized to retract the left lobe of the liver anteriorly. It was held in position with a laparoscopic holding device clamped to the side of the bed. Beginning at the twelve o'clock position on the kathia, the hernia sac was grasped and reduced form the mediastinum. The hernia sac was divided to enter the plane between the sac and the mediastinum. The hernia sac was divided towards the left and right with continued traction on the hernia sac to reduce it. A mediastinal dissection was performed to further reduce the hernia sac which facilitated reduction of the stomach as well. The hernia sac was disconnected from the right and left crura and subsequently, the hernia sac was dissected from the stomach and esophagus, and excised. The short gastric vessels were divided from starting at the inferior pole of the spleen and working our way superiorly to the diaphragm, to completely disconnect the stomach from the spleen and the left hemidiaphragm. All posterior gastric attachments to the lesser sac and retroperitoneum were divided. The left kathia was further delineated. A retroesophageal window was created and a 1/4? Blanco drain was used to encircle the esophagus for retraction. A high, circumferential mediastinal dissection was performed in an effort to mobilize the esophagus and provide for adequate intraabdominal esophageal length. The mediastinal dissection was performed bluntly, with little to no thermal energy. The anterior and posterior vagus nerves were both identified and preserved. The crural defect was reapproximated with multiple, interrupted, pledgeted 0 Ethibond sutures. The crural pillars came together well without tearing of the adjacent diaphragmatic tissue. Endoflip performed after cruroplasty was DI of 2.4 The operative field was inspected for hemostasis. Gastropexy performed with two 2-0 prolene anterior gastric sutures to the left upper abdomen. The Jennyfer drain and liver retractor were removed. The 12 mm port site fascia was closed with a figure of eight 0 vicryl suture using a laparoscopic suture passer. The peritoneal cavity was desufflated and the trocars removed. The incisions were closed with 4-0 Monocryl subcuticular sutures and skin glue. I was present and participated in all critical portions of the case. No qualified residents were available to assist with this complex procedure thus the fellow was required to assist with this case. The construction project assistant performed retraction and assisted with exposure. PRE-OP/PRE-PROCEDURE DIAGNOSIS: Type III paraesophageal hernia, symptomatic POST-OP/POST-PROCEDURE DIAGNOSIS: Same as Preop ESTIMATED BLOOD LOSS: 30 mls SPECIMENS: None IMPLANTABLE DEVICES: NONE DRAINS: None COMPLICATIONS: None CLOSURE TECHNIQUE: Primary PARTICIPATION IN SURGERY/PROCEDURE: I/primary surgeon/proceduralist performed the procedure with assistance. SIGNATURE: Xavier Boyd MD PATIENT NAME: Shey Boss DATE: July 24, 2024 TIME: 2:27 PM Normal [facility] Phosphate SerPl-mCncon 07-24 Phosphate [Mass/Vol] 3.6 mg/dL Normal 2.7-4.8 [facility] Comment on above: Order Comment: Speci men Type: BLOOD SPECIMEN Ordering Facility: [facility] Address: [address] [place] [address] Performed By: #### 2 4321-2, HSTNT, 37216-7, 2777-1 #### [facility] CLIA [id number] [address] [place], [place] [address]K [id number] [place] [address] [place] CBC W Auto Differential pane l (Bld)on 07-23-2024 Basophils (Bld) [#/Vol] 0.04 10*3/uL Normal <0.11 [facility] Comment on above: Order Comment: Speci men Type: BLOOD SPECIMEN Ordering Facility: [facility] Address: [address] [place] [address] Performed By: #### 2 4321-2, HSTNT, , 2776-07 #### [facility] CLIA [id number] [address] [place] [address] [place] Basophils/100 WBC (Bld) 0.8 % Normal [facility] Comment on above: Order Comment: Speci men Type: BLOOD SPECIMEN Ordering Facility: [facility] Address: [address] [place] [address] Performed By: #### 2 4321-2, HSTNT, , 2776-07 #### [facility] CLIA [id number] [address] [place] [address] [place] Differential cell count method Nom (Bld) Auto Normal [facility] Comment on above: Order Comment: Speci men Type: BLOOD SPECIMEN Ordering Facility: [facility] Address: [address] [place] [address] Performed By: #### 2 4321-2, HSTNT, , 2776-07 #### [facility] CLIA [id number] [address] [place] [address] [place] Eosinophils (Bld) [#/Vol] 0.18 10*3/uL Normal <0.46 [facility] Comment on above: Order Comment: Speci men Type: BLOOD SPECIMEN Ordering Facility: [facility] Address: [address] [place] [address] Performed By: #### 2 4321-2, HSTNT, , 2776-07 #### [facility] CLIA [id number] [address] [place] [address] [place] Eosinophils/100 WBC (Bld) 3.7 % Normal [facility] Comment on above: Order Comment: Speci men Type: BLOOD SPECIMEN Ordering Facility: [facility] Address: [address] [place] [address] Performed By: #### 2 4321-2, HSTNT, , 2776-07 #### [facility] CLIA [id number] [address] [place] [address] [place] Erythrocyte distribution width (RBC) [Ratio] 13.9 % Normal 11.5-15.0 [facility] Comment on above: Order Comment: Speci men Type: BLOOD SPECIMEN Ordering Facility: [facility] Address: [address] [place] [address] Performed By: #### 2 4321-2, HSTNT, , 2776-07 #### [facility] CLIA [id number] [address] [place] [address] [place] Hematocrit (Bld) [Volume fraction] 39.0 % Normal 36.0-46.0 [facility] Comment on above: Order Comment: Speci men Type: BLOOD SPECIMEN Ordering Facility: [facility] Address: [address] [place] [address] Performed By: #### 2 4321-2, HSTNT, , 2776-07 #### [facility] CLIA [id number] [address] [place] [address] [place] Hemoglobin (Bld) [Mass/Vol] 13.4 g/dL Normal 11.5-15.5 [facility] Comment on above: Order Comment: Speci men Type: BLOOD SPECIMEN Ordering Facility: [facility] Address: [address] [place] [address] Performed By: #### 2 4321-2, HSTNT, , 2776-07 #### [facility] CLIA [id number] [address] [place] [address] [place] Immature granulocytes (Bld) [#/Vol] 10*3/uL Normal <0.10 [facility] Comment on above: Order Comment: Speci men Type: BLOOD SPECIMEN Ordering Facility: [facility] Address: [address] [place] [address] Performed By: #### 2 4321-2, HSTNT, , 2776-07 #### [facility] CLIA [id number] [address] [place] [address] [place] Immature granulocytes/100 WBC (Bld) 0.4 % Normal [facility] Comment on above: Order Comment: Speci men Type: BLOOD SPECIMEN Ordering Facility: [facility] Address: [address] [place] [address] Performed By: #### 2 4321-2, HSTNT, , 2776-07 #### [facility] CLIA [id number] [address] [place] [address] [place] Lymphocytes (Bld) [#/Vol] 2.00 10*3/uL Normal 1.00-4.00 [facility] Comment on above: Order Comment: Speci men Type: BLOOD SPECIMEN Ordering Facility: [facility] Address: [address] [place] [address] Performed By: #### 2 4321-2, HSTNT, , 2776-07 #### [facility] CLIA [id number] [address] [place] [address] [place] Lymphocytes/100 WBC (Bld) 41.3 % Normal [facility] Comment on above: Order Comment: Speci men Type: BLOOD SPECIMEN Ordering Facility: [facility] Address: [address] [place] [address] Performed By: #### 2 4321-2, HSTNT, , 2776-07 #### [facility] CLIA [id number] [address] [place] [address] [place] MCH (RBC) [Entitic mass] 32.5 pg Normal 26.0-34.0 [facility] Comment on above: Order Comment: Speci men Type: BLOOD SPECIMEN Ordering Facility: [facility] Address: [address] [place] [address] Performed By: #### 2 4321-2, HSTNT, , 2776- #### [facility] CLIA [id number] [address] [place] [address] [place] MCHC (RBC) [Mass/Vol] 34.4 g/dL Normal 30.5-36.0 [facility] Comment on above: Order Comment: Speci men Type: BLOOD SPECIMEN Ordering Facility: [facility] Address: [address] [place] [address] Performed By: #### 2 4321-2, HSTNT, , 2776- #### [facility] CLIA [id number] [address] [place] [address] [place] MCV (RBC) [Entitic vol] 94.7 fL Normal 80.0-100.0 [facility] Comment on above: Order Comment: Speci men Type: BLOOD SPECIMEN Ordering Facility: [facility] Address: [address] [place] [address] Performed By: #### 2 4321-2, HSTNT, , 2776-07 #### [facility] CLIA [id number] [address] [place] [address] [place] Monocytes (Bld) [#/Vol] 0.30 10*3/uL Normal <0.87 [facility] Comment on above: Order Comment: Speci men Type: BLOOD SPECIMEN Ordering Facility: [facility] Address: [address] [place] [address] Performed By: #### 2 4321-2, HSTNT, , 2776-07 #### [facility] CLIA [id number] [address] [place] [address] [place] Monocytes/100 WBC (Bld) 6.2 % Normal [facility] Comment on above: Order Comment: Speci men Type: BLOOD SPECIMEN Ordering Facility: [facility] Address: [address] [place] [address] Performed By: #### 2 4321-2, HSTNT, 65339-8, 2776- #### [facility] CLIA [id number] [address] [place] [address] [place] Neutrophils (Bld) [#/Vol] 2.30 10*3/uL Normal 1.45-7.50 [facility] Comment on above: Order Comment: Speci men Type: BLOOD SPECIMEN Ordering Facility: [facility] Address: [address] [place] [address] Performed By: #### 2 4321-2, HSTNT, 12920-9, 2776- #### [facility] CLIA [id number] [address] [place] [address] [place] Neutrophils/100 WBC (Bld) 47.6 % Normal [facility] Comment on above: Order Comment: Speci men Type: BLOOD SPECIMEN Ordering Facility: [facility] Address: [address] [place] [address] Performed By: #### 2 4321-2, HSTNT, 34544-5, 2776- #### [facility] CLIA [id number] [address] [place] [address] [place] Nucleated RBC (Bld) [#/Vol] 10*3/uL Normal <0.01 [facility] Comment on above: Order Comment: Speci men Type: BLOOD SPECIMEN Ordering Facility: [facility] Address: [address] [place] [address] Performed By: #### 2 4321-2, HSTNT, 11593-0, 2776- #### [facility] CLIA [id number] [address] [place] [address] [place] Nucleated RBC/100 WBC (Bld) [Ratio] 0.0 /100 WBC Normal [facility] Comment on above: Order Comment: Speci men Type: BLOOD SPECIMEN Ordering Facility: [facility] Address: [address] [place] [address] Performed By: #### 2 4321-2, HSTNT, 55742-1, 2776- #### [facility] CLIA [id number] [address] [place] [address] [place] Platelet mean volume (Bld) [Entitic vol] 10.2 fL Normal 9.0-12.7 [facility] Comment on above: Order Comment: Speci men Type: BLOOD SPECIMEN Ordering Facility: [facility] Address: [address] [place] [address] Performed By: #### 2 4321-2, HSTNT, , 2776- #### [facility] CLIA [id number] [address] [place] [address] [place] Platelets (Bld) [#/Vol] 169 10*3/uL Normal 150-400 [facility] Comment on above: Order Comment: Speci men Type: BLOOD SPECIMEN Ordering Facility: [facility] Address: [address] [place] [address] Performed By: #### 2 4321-2, HSTNT, , 2776- #### [facility] CLIA [id number] [address] [place] [address] [place] RBC (Bld) [#/Vol] 4.12 10*6/uL Normal 3.90-5.20 [facility] Comment on above: Order Comment: Speci men Type: BLOOD SPECIMEN Ordering Facility: [facility] Address: [address] [place] [address] Performed By: #### 2 4321-2, HSTNT, , 2776- #### [facility] CLIA [id number] [address] [place] [address] [place] WBC (Bld) [#/Vol] 4.84 10*3/uL Normal 3.70-11.00 [facility] Comment on above: Order Comment: Speci men Type: BLOOD SPECIMEN Ordering Facility: [facility] Address: [address] [place] [address] Performed By: #### 2 4321-2, HSTNT, 23091-0, 2777-1 #### [facility] CLIA [id number] [address] [place] [address] [place] [id number] [place] CCF CBC W AUTO DIFF BLDon Basophils/100 WBC (Bld) 0.8 % [facility] BASOPHILS # BLD AUTO 0.04 [facility] DIFFERENTIAL METHOD BLD Auto [facility] EOSINOPHIL # BLD AUTO 0.18 [facility] LYMPHOCYTES # BLD AUTO 2 [facility] MONOCYTES # BLD AUTO 0.3 [facility] NEUTROPHILS # BLD AUTO 2.3 [facility] NRBC # BLD AUTO <0.01 [facility] NRBC/100 WBC BLD-RTO 0 /100 WBC [facility] PLATELET # BLD AUTO 169 [facility] PMV BLD AUTO 10.2 fL 9.0 - 12.7 fL [facility] WBC # BLD AUTO 4.84 [facility] Eosinophils/100 WBC (Bld) 3.7 % [facility] Erythrocyte distribution width (RBC) [Ratio] 13.9 % 11.5 - 15.0 % [facility] Hematocrit (Bld) [Volume fraction] 39 % 36.0 - 46.0 % [facility] Hemoglobin (Bld) [Mass/Vol] 13.4 g/dL 11.5 - 15.5 g/dL [facility] IMM GRANULOCYTES # BLD AUTO <0.03 [facility] IMM GRANULOCYTES/LEUK NFR BLD AUTO 0.4 % [facility] Lymphocytes/100 WBC (Bld) 41.3 % [facility] MCH (RBC) [Entitic mass] 32.5 pg 26.0 - 34.0 pg [facility] MCHC (RBC) [Mass/Vol] 34.4 g/dL 30.5 - 36.0 g/dL [facility] MCV (RBC) [Entitic vol] 94.7 fL 80.0 - 100.0 fL [facility] Monocytes/100 WBC (Bld) 6.2 % [facility] Neutrophils/100 WBC (Bld) 47.6 % [facility] RBC (Bld) [#/Vol] 4.12 10*6/uL 3.90 - 5.2 0 m/uL [facility] Specimen Type: BLOOD SPECIMEN Ordering Facility: [facility] Address: [address] [place] [address] Original Ordering Provider: KATARZYNA WHEAT [facility] Healthcare CONFIRM BLOOD TYPEon 025 ABO B Normal [facility] Comment on above: Order Comment: Speci men Type: BLOOD SPECIMEN Ordering Facility: [facility] Address: [address] [place] [address] Performed By: #### 2 4321-2, HSTNT, , 2776-07 #### [facility] CLIA [id number] [address] [place] [address] [place] Rh Nom (Bld) Positive Normal [facility] Comment on above: Order Comment: Speci men Type: BLOOD SPECIMEN Ordering Facility: [facility] Address: [address] [place] [address] Performed By: #### 2 4321-2, HSTNT, , 2776-07 #### [facility] CLIA [id number] [address] [place] [address] [place] ABO group Nom (Bld) B [facility] Rh Nom (Bld) Positive [facility] Comprehensive metabolic 2000 panelon 07-23-2024 Albumin [Mass/Vol] 4.2 g/dL Normal 3.9-4.9 [facility] Comment on above: Order Comment: Speci men Type: BLOOD SPECIMEN Ordering Facility: [facility] Address: [address] [place] [address] Performed By: #### 2 4321-2, HSTNT, , 2776-07 #### [facility] CLIA [id number] [address] [place] [address] [place] ALP [Catalytic activity/Vol] 111 U/L Normal 34-123 [facility] Comment on above: Order Comment: Speci men Type: BLOOD SPECIMEN Ordering Facility: [facility] Address: [address] [place] [address] Performed By: #### 2 4321-2, HSTNT, , 2776-07 #### [facility] CLIA [id number] [address] [place] [address] [place] ALT [Catalytic activity/Vol] 26 U/L Normal 7-38 [facility] Comment on above: Order Comment: Speci men Type: BLOOD SPECIMEN Ordering Facility: [facility] Address: [address] [place] [address] Performed By: #### 2 4321-2, HSTNT, , 2776-07 #### [facility] CLIA [id number] [address] [place] [address] [place] Anion gap [Moles/Vol] 10 mmol/L Normal 8-15 [facility] Comment on above: Order Comment: Speci men Type: BLOOD SPECIMEN Ordering Facility: [facility] Address: [address] [place] [address] Performed By: #### 2 4321-2, HSTNT, , 2776-07 #### [facility] CLIA [id number] [address] [place] [address] [place] AST [Catalytic activity/Vol] 28 U/L Normal 13-35 [facility] Comment on above: Order Comment: Speci men Type: BLOOD SPECIMEN Ordering Facility: [facility] Address: [address] [place] [address] Performed By: #### 2 4321-2, HSTNT, , 2776-07 #### [facility] CLIA [id number] [address] [place], [place] [id number] [place] Bilirubin [Mass/Vol] 0.5 mg/dL Normal 0.2-1.3 [facility] Comment on above: Order Comment: Speci men Type: BLOOD SPECIMEN Ordering Facility: [facility] Address: [address] [place] [address] Performed By: #### 2 4321-2, HSTNT, , 2776-07 #### [facility] CLIA [id number] [address] [place], [place] [address] [place] Calcium [Mass/Vol] 9.4 mg/dL Normal 8.5-10.2 [facility] Comment on above: Order Comment: Speci men Type: BLOOD SPECIMEN Ordering Facility: [facility] Address: [address] [place] [address] Performed By: #### 2 4321-2, HSTNT, , 2776-07 #### [facility] CLIA [id number] [address] [place] [address] [place] Chloride [Moles/Vol] 108 mmol/L High 98-107 [facility] Comment on above: Order Comment: Speci men Type: BLOOD SPECIMEN Ordering Facility: [facility] Address: [address] [place] [address] Performed By: #### 2 4321-2, HSTNT, , 2776-07 #### [facility] CLIA [id number] [address] [place], [place] [address] [place] CO2 [Moles/Vol] 23 mmol/L Normal 22-30 [facility] Comment on above: Order Comment: Speci men Type: BLOOD SPECIMEN Ordering Facility: [facility] Address: [address] [place], [place] [address] Performed By: #### 2 4321-2, HSTNT, , 2776-07 #### [facility] CLIA [id number] [address] [place], [place] [address] [place] Creatinine [Mass/Vol] 0.99 mg/dL High 0.58-0.96 [facility] Comment on above: Order Comment: Speci men Type: BLOOD SPECIMEN Ordering Facility: [facility] Address: [address] [place] [address] Performed By: #### 2 4321-2, HSTNT, , 2776-07 #### [facility] CLIA [id number] [address] [place] [address] [place] Creatinine and Glomerular filtration rate.predicted panel (S/P/Bld) 61 mL/min/1.73m??? Normal >=60 [facility] Comment on above: Order Comment: Fabiola bliss Type: BLOOD SPECIMEN Ordering Facility: [facility] Address: [address] [place] [address] Result Comment: Ira mated Glomerular Filtration Rate (eGFR) is calculated using the 2020 CKD-EPI creatinine equation. This equation utilizes serum creatinine, sex, and age as parameters. The creatinine assay has traceable calibration to isotope dilution-mass spectrometry. Refer to KDIGO guidelines for clinical interpretation. In patients with unstable renal function, e.g. those with acute kidney injury, the eGFR may not accurately reflect actual GFR. Performed By: #### 2 4321-2, HSTNT, 70274-7, 2776-07 #### [facility] CLIA [id number] [address] [place] [address] [place] Glucose [Mass/Vol] 155 mg/dL High 74-99 [facility] Comment on above: Order Comment: Fabiola bliss Type: BLOOD SPECIMEN Ordering Facility: [facility] Address: [address] [place] [address] Result Comment: The [place] Diabetes Association (ADA) provides guidance for cutoff values for fasting glucose and random glucose. The ADA defines fasting as no caloric intake for at least 8 hours. Fasting plasma glucose results between 100 to 125 mg/dL indicate increased risk for diabetes (prediabetes). Fasting plasma glucose results greater than or equal to 126 mg/dL meet the criteria for diagnosis of diabetes. In the absence of unequivocal hyperglycemia, results should be confirmed by repeat testing. In a patient with classic symptoms of hyperglycemia or hyperglycemic crisis, random plasma glucose results greater than or equal to 200 mg/dL meet the criteria for diagnosis of diabetes. Reference: Standards of Medical Care in Diabetes 2016, [place] [employer] Association. Diabetes Care. 2016.39(Suppl 1). Performed By: #### 2 4321-2, HSTNT, , 2776-07 #### [facility] CLIA [id number] [address] [place] [address] [place] Potassium [Moles/Vol] 4.3 mmol/L Normal 3.7-5.1 [facility] Comment on above: Order Comment: Speci men Type: BLOOD SPECIMEN Ordering Facility: [facility] Address: [address] [place] [address] Performed By: #### 2 4321-2, HSTNT, , 2776-07 #### [facility] CLIA [id number] [address] [place] [address] [place] Protein [Mass/Vol] 6.9 g/dL Normal 6.3-8.0 [facility] Comment on above: Order Comment: Speci men Type: BLOOD SPECIMEN Ordering Facility: [facility] Address: [address] [place] [address] Performed By: #### 2 4321-2, HSTNT, , 2776-07 #### [facility] CLIA [id number] [address] [place], [place] [address] [place] Sodium [Moles/Vol] 141 mmol/L Normal 136-144 [facility] Comment on above: Order Comment: Speci men Type: BLOOD SPECIMEN Ordering Facility: [facility] Address: [address] [place] [address] Performed By: #### 2 4321-2, HSTNT, , 2776-07 #### [facility] CLIA [id number] [address] [place] [address] [place] Urea nitrogen [Mass/Vol] 13 mg/dL Normal 7-21 [facility] Comment on above: Order Comment: Speci men Type: BLOOD SPECIMEN Ordering Facility: [facility] Address: [address] [place] [address] Performed By: #### 2 4321-2, HSTNT, 52144-4, 2777-1 #### [facility] CLIA [id number] [address] [place] [address] [place] [address] [place] ECG COMPLETEon 07-23-2024 ECG COMPLETE Ventricular Rate : 6 6 BPM Atrial Rate : 66 BPM P-R Interval : 158 ms QRS Duration : 78 ms Q-T Interval : 404 ms QTC Calculation(Bazett) : 423 ms Calculated P [place] : 32 degrees Calculated R [place] : 14 degrees Calculated T [place] : 54 degrees NORMAL SINUS RHYTHM NORMAL ECG Confirmed by MD MCCLENDON HEBA ([id number]) on 07/29/2024 12:16:17 PM NAME : SHEY BOSS PID : [id number] : 1950 Gender : Female Race : ORD : [id number] Procedure Date : Jul 23 2024 12:08:10 Edit Date : Jul 29 2024 12:16:18 Diagnosis: NORMAL SINUS RHYTHM NORMAL ECG Confirmed by MD MCCLENDON HEBA ([id number]) on 07/29/2024 12:16:17 PM Test Reason : Location : 119 : A17 A17 Overread By : MD MCCLENDON HEBA Edited By : MD MCCLENDON HEBA Referred By : XAVIER BOYD Acquired by : SADE HA [facility] HISTORY PHYSICALon HISTORY PHYSICAL HNO ID: [id number] Author: JAMIL DELACRUZ PA-C Service: ? Author Type: Physician Alarm Service Technician Type: H&P Filed: 07/23/2024 14:03 Note Text: [facility] HISTORY AND PHYSICAL EXAMINATION SERVICE DATE: 07/23/2024 SERVICE TIME: 1:07 PM PRIMARY CARE PHYSICIAN: Latrell Jack MD Assessment Patient has the following medical conditions which may affect jovana-operative course: Mini Cog Score: 5 Chronic obstructive pulmonary disease (HCC) -Continue inhalers, has not needed to use albuterol in the past 3-4 months -SpO2 99% on RA -Follows OP with PCP -Patient in NAD -Admits to chronic exertional dyspnea, not new or worsening -Former heavy smoker -CXR pending Former smoker -Smoked from age [age] (quit in 2011), 1/2-2 PPD EDWIN (obstructive sleep apnea) -Compliant with CPAP HTN (hypertension) -Managed on losartan -BP today 152/73 -EKG reviewed, NSR GERD (gastroesophageal reflux disease) -Managed on PPI, Pepcid Dyslipidemia -Continue statin TIA (transient ischemic attack) -Noted in EMR however patient denies Abnormal MRI of head -03/15/24 MRI brain Mild chronic microvascular ischemic and involutional changes. -Managed on aspirin, please note last dose was 07/22/24 PM Memory loss -Follows OP with PCP -Managed on donepezil Chronic back pain -Follows OP with pain management Primary insomnia -Managed on Ambien Obesity -Body mass index is 37.45 kg/m?. Sheth Activity Status Index: METS: DASI Score: 0 (Limited in activity 2/2 chronic back pain +chronic exertional dyspnea due to COPD) Patient is limited most or all of the time (uses scooter, mobility device) (uses cane with ambulation). Clinical Frailty Scale: 4. Apparently vulnerable STOP-Bang Score: STOP-Bang Score: (+EDWIN - compliant with CPAP) ARISCAT Score: Age: 51-80 Preoperative SpO2: >=96% Respiratory infection in the last month: No Preoperative anemia: No Surgical incision: upper abdominal Duration of surgery: >3 hrs Emergency procedure: No ARISCAT Score: 41 ANESTHESIA FINDINGS: Intubation History: No history of difficult intubation Significant Anesthesia Considerations: none Airway History: No history of difficult airway I - PHYSICAL EVALUATION AIRWAY Patient intubated: No. Tracheostomy tube not present Mallampati: IV. TM distance: >3 FB. Neck ROM: full ROM without neurological symptoms. Mouth opening: adequate. Short neck: yes. Thick neck: yes Lip Bite Test: I Microretrognathia/Micro nagthia/Recessed Chin: No DENTAL Dentures, upper: complete. Dentures, lower: complete. II - ANESTHESIA PLAN Anesthetic plan additional comments: *[facility] - anesthesia choice. Beta Martin Monitoring Plan Post Procedure Analgesic Plan Prepared for Surgery: optimally prepared for surgery, pending day of surgery. EKG, labs, CXR, DOS exam. Patient seen in [facility] the day prior to surgery. Please note last dose of baby aspirin was 1/13 PM. CONSULTS: Patient does not require consults for optimization at this time Planned Anesthetic: anesthesia choice The Following Tests/Procedures Have Been Initiated: EKG, labs REASON FOR VISIT: Shey Boss is a 73 year old female who is scheduled for Procedure(s): LAPAROSCOPIC RPR PARAESOPHAGEAL HERNIA W/O FUNDOPLASTY W/ MESH (N/A) at the request of Dr. Boyd, Xavier Mayfield MD for consultation. My final recommendation will be communicated back to the requesting physician by way of shared medical record or letter. Subjective The patient has the following: COVID-19 Immunization Status Overdue - Covid-19 Vaccine () Overdue since 03/10/2024 03/27/2023 Imm Admin: COVID-19 vaccine, age 12+ yr (PFIZER-BIONTECH COMIRNATY) 05/03/2022 Imm Admin: COVID-19 vaccine, age 12+ yr, bivalent ([employer]-BIONTECH) 04/12/2021 Imm Admin: COVID-19 original vaccine, age 12+ yr, monovalent ([employer]-BIONTECH - PURPLE TOP) Only the first 3 history entries have been loaded, but more history exists. CHIEF COMPLAINT: Paraesophageal hernia [K44.9] HPI: Shey Boss is a 73 year old female with PMH including HTN, COPD, obesity, and EDWIN who presents to [facility] today for preop exam. Patient is scheduled for the above procedure tomorrow 07/24/24. Patient admits to dysphagia, GERD, and epigastric pain that is relieved with belching. Found to have type III PEH on esophagram. Electing to proceed with the above procedure. Denies fevers, chills, chest pain. REVIEW OF SYSTEMS: General: Negative for: fever. Neurological: Negative for: seizures, TIA and strokes. Respiratory: Positive for: COPD, dyspnea (chronic, exertional), obstructive sleep apnea and CPAP/BiPAP compliant. Negative for: asthma, current cough, pneumonia within 6 weeks, tobacco use and URI < 2 weeks. Cardiovascular: Positive for: hyperlipidemia and hypertension Negative for: angina, anticoagulation therap (more content not included)... Normal [facility] PT panel Coag (PPP)on 2024 INR Coag (PPP) [Relative time] 1.1 {INR} Normal 0.9-1.3 [facility] Comment on above: Order Comment: Fabiola bliss Type: BLOOD SPECIMEN Ordering Facility: [facility] Address: [address] [place], [place] [address] Result Comment: Patricia min K Antagonist (VKA) Therapeutic Range: INR 2 to 3 (Target INR of 2.5) Note: For patients treated with VKA drugs, such as warfarin, the [place] [employer] 2012 Guideline recommends a therapeutic INR range of 2 to 3 (target INR of 2.5). This recommendation includes high-risk patients with antiphospholipid syndrome with previous arterial or venous thromboembolism, current-generation mechanical or bioprosthetic aortic heart valve replacement. Note: Patients with mechanical aortic valve replacement and additional risk factors for thromboembolic events (atrial fibrillation, previous thromboembolism, LV dysfunction, hypercoagulable conditions) or an older generation mechanical AVR (i.e., ball in-Cage) or any mechanical MVR should have a INR therapeutic range of 2.5 to 3.5 (target INR of 3). Surendra NUNEZ, et al. Chest 2012, 141:7S-47S Keisha RA, et al. JACC 2017, 70: 252-289 Performed By: #### 2 4321-2, HSTNT, , 2776- #### [facility] CLIA [id number] [address] [place] [address] [place] PT Coag (PPP) [Time] 11.4 s Normal 9.7-13.0 [facility] Comment on above: Order Comment: Fabiola bliss Type: BLOOD SPECIMEN Ordering Facility: [facility] Address: [address] [place] [address] Performed By: #### 2 4321-2, HSTNT, , 2776-07 #### [facility] CLIA [id number] [address] [place], [place] [address] [place] TYPE AND SCREEN,30 DAYon ABO B Normal [facility] Comment on above: Order Comment: Speci men Type: BLOOD SPECIMEN Ordering Facility: [facility] Address: [address] [place] [address] Performed By: #### 2 4321-2, HSTNT, , 2776-07 #### [facility] CLIA [id number] [address] [place] [address] [place] Rh Nom (Bld) Positive Normal [facility] Comment on above: Order Comment: Speci men Type: BLOOD SPECIMEN Ordering Facility: [facility] Address: [address] [place], [place] [address] Performed By: #### 2 4321-2, HSTNT, , 2776-07 #### [facility] CLIA [id number] [address] [place] [address] [place] XR CHEST 2V FRONTAL/LATon XR CHEST 2V FRONTAL/LAT * * *Final Report* * * DATE OF EXAM: Jul 23 2024 1:58PM AOX 5291 - XR CHEST 2V FRONTAL/LAT / PROCEDURE REASON: multiple diagnoses * * * * Physician Interpretation * * * * EXAMINATION: CHEST RADIOGRAPH (2 VIEW FRONTAL and LATERAL) CLINICAL HISTORY: Pre-op evaluation Chronic obstructive pulmonary disease, unspecified COPD type (HCC) MQ: XC2_6 EXAM DATE/TIME: 07/23/2024 1:58 PM COMPARISON: None available RESULT: Lines, tubes, and devices: None. Lungs and pleura: The lungs appear clear of consolidation. There is bilateral bronchial wall thickening, consistent with chronic airways inflammation. No pleural effusion or pneumothorax is identified. Cardiomediastinal silhouette: The heart size and pulmonary vascular pattern are within normal limits. There are atherosclerotic calcifications in the aortic arch. There is a large hiatal hernia Bones and soft tissues: Unremarkable. IMPRESSION: Large hiatal hernia. Solar Pv Installer: KODY Transcribe Date/Time: Jul 24 2024 7:28A Dictated by : JARVIS HUGO MD This examination was interpreted and the report reviewed and electronically signed by: JARVIS HUGO MD on Jul 24 2024 7:30AM EST [id number] Normal [facility] aPTT PPPon 07-23-2024 aPTT Coag (PPP) [Time] 25.5 s Normal 23.0-32.4 [facility] Comment on above: Order Comment: Fabiola bliss Type: BLOOD SPECIMEN Ordering Facility: [facility] Address: [address] [place] [address] Performed By: #### 2 4321-2, HSTNT, 08721-3, 2777-1 #### [facility] CLIA [id number] [address] [place] [address] [id number] [place] [address] OF [facility] CNOVon 04-29-2024 CNOV Office Visit (ARNOLDO ) KARYNALPASHEY ([id number]) 1950 F Date Time Provider Department 04/29/24 11:00 AM XAVIER BOYD During your visit today, we recorded the following information about you: Temperature Pulse Blood pressure Weight 98.5 degrees 90/minute 144/65 98.9 kg Height 1.524 m Diomedes Fiore MA 04/29/2024 11:01 AM Signed What is the reason for your visit today? Consult Who is your referring physician? Dafne Spears Are you having poor oral intake? YES Have you had unintentional weight loss of 15 lbs/7 Kg in the last 3-6 months? NO Bowels: soft, more frequent Wound: none Temperature: No Drains: No Yan Moser 04/29/2024 12:10 PM Signed [facility] - HISTORY AND [...] obtained Yan Moser MD General Surgery [facility], Xavier Mayfield MD 04/29/2024 12:10 PM Signed Consultation requested [...] and discussed (more content not included)... Normal [facility] Anca 04-22-2024 CNPN Telephone ([employer]) SHEY BOSS ([id number]) 1950 F Date Time Provider Department 04/22/24 ASHLIE CALDERONSMN During your visit today, we recorded the following information about you: Ashlie Calderon 04/22/2024 5:39 PM Signed Spoke with PT she state no prior surgeries Allergies As of Date: 04/22/2024 (Not on File) Date Reviewed: Never Reviewed Problem List As Of Date: 04/22/2024 (None) Encounter Status:Closed by ASHLIE CALDERON on 04/22/24 Normal [facility] Surgical Pathology Reporton 03-26-2024 Surgical Pathology Report [facility] [address] [place] [address]- Surgical Pathology Report Collected Date/Time: 03/20/2024 12:52 EDT Pathologist: Pete Evans MD Received Date/Time: 03/21/2024 08:07 EDT Yovanny OLIVO, Dafne Spears MD, Dafne Torres 07 Surgical Pathology Report - 03/26/2024 [...] entirely submitted in one cassette. (DC) DC:[facility] Microscopic Description Microscopic examination performed unless gross only specified. The use of one or more reagents in the above tests is regulated as an analyte specific reagent (ASR). The test or tests are ordered following initial H&E microscopic examination. The performance characteristics were determined by the [facility] of [facility]. They have not been cleared or approved by the US Food and Drug Administration. The FDA has determined that such clearance or approval is not necessary. These tests are used for clinical purposes. They should not be regarded as investigational or for research. Appropriate positive and negative controls are performed and are acceptable. Normal [facility] Comment on above: Performed By: #### 4 [id number] #### [facility] [address] [place] [address] XR Esophaguson 03-26-2024 XR Esophagus Exam Date/Time: [...] or visualized gastroesophageal reflux. Ordering Provider: Dafne Spears FINAL REPORT Dictated: 03/26/2024 10:53 am Anibal Londono MD Signed (Electronic Signature): 03/26/2024 10:53 am Signed by: Anibal Londono MD Transcribed by: NEAL Technologist: DENICE Technical Comments Radiation Dose: Ka,r in mGy = 15.80 DAP = 464.17 Normal [facility] Main OR Intraoperative Recor don 03-22-2024 Main OR Intraoperative Record Main OR Intraoperative Record IntraOp Document Type FT Summary Primary Physician: Dafne Spears MD Finalized Date/Time: 03/22/24 14:46:15 Pt. Name: SHEY BOSS/Sex: 1950 Female Med Rec #: [id number] Physician: Yovanny OLIVO, Dafne Torres Financial #: [id number] Pt. Type: O Room/Bed: / Admit/Disch: 03/20/24 [...] 3 Case Attendee Mariella JOHNSON, Catalina Ivory MANAGER OF REGULATORY AFFAIRS, Анна Spears MD, Dafne Torres Role Performed STAVE [employer] BOLT EQUALIZER Scrub - Primary Surgeon - Primary Time In 03/20/24 12:44:00 03/20/24 12:44:00 03/20/24 12:44:00 Time Out 03/20/24 12:56:00 03/20/24 12:56:00 03/20/24 12:56:00 Procedure EGD(.) EGD(.) EGD(.) Comments Dr. Spears supervising procedure. Last Modified By: Violette Lowe CST, RN, Essence Pinto RN 03/22/24 14:45:45 03/20/24 12:56:36 03/20/24 12:56:36 Entry 4 Case Attendee Essence Lopez RN Role Performed Equal Employment Opportunity Officer - Primary Time In 03/20/24 12:44:00 [...] Given Participants Анна Ivory CST, Sarmini MD, Dafne Torres, Essence Lopez RN Time [...] Primary Procedure Yes Primary Surgeon Yovanny OLIVO, Dafne Torres Start 03/20/24 12:49:00 Stop [...] and tissue Entry 1 Skin Integrity Intact, [place], Warm, & Skin Abnormality No Dry Outcomes [...] (more content not included)... Normal [facility] Discharge Instructionson Discharge Instructions Discharge Instructions SHEY BOSS :1950 Visit Date:03/20/2024 Inpatient Discharge Instructions Your Care Team Admitting Physician - Dafne Spears MD Referring Physician - Dafne Spears MD Reason for Your Visit DYSPHAGIA, HIATIL [...] mg Tab) fluticasone nasal (Flonase 0.05 mg/inh [place]) losartan (losartan 25 mg Tab) multivitamin with [...] Unchanged fluticasone nasal (Flonase 0.05 mg/ inh [place]) 2 Sprays Nasal Inhalation Every day Unchanged [...] (more content not included)... Normal [facility] Comment on above: Result Comment: Elec tronically Signed By: Kassy Barker I\.br\Date and Time Signed: 03/20/24 13:08 EDT Inpatient Patient Summaryon 03-20-2024 Inpatient Patient Summary Inpatient Patient Summary [place] [id number] [facility] Clinical Discharge Instructions PERSON INFORMATION Name: SHEY BOSS PHYSICIANS Admitting Physician: Dafne Spears MD Attending Physician: Dafne Spears MD PCP: GUERO OLIVO, LATRELL Discharge Diagnosis: Comment: PATIENT EDUCATION INFORMATION Instructions: [...] (at bedtime). fluticasone nasal (Flonase 0.05 mg/inh [place]) 2 Sprays Nasal Inhalation every day. losartan [...] needed for sleep. Comment: Normal [facility] Main OR PACU I Recordon 03-10 Main OR PACU I Record Main OR PACU I Record PACU Phase I Document Type FT Summary Primary Physician: Dafne Spears MD Finalized Date/Time: 03/20/24 13:37:02 Pt. Name: SHEY BOSS/Sex: 1950 Female Med Rec #: [id number] Physician: Dafne Spears MD Financial #: [id number] Pt. Type: O Room/Bed: / Admit/Disch: 03/20/24 [...] Signed By: Kassy Barker I 03/20/24 13:37 [facility] Main OR Preoperative Recordo n 03-20-2024 Main OR Preoperative Record Main OR Preoperative Record Holding Area Document Type FT Summary Primary Physician: Dafne Spears MD Finalized Date/Time: 03/20/24 11:17:32 Pt. Name: SHEY BOSS /Sex: 1950 Female Med Rec #: [id number] Physician: Dafne Spears MD Financial #: [id number] Pt. Type: O Room/Bed: / Admit/Disch: 03/20/24 [...] Lopez RN 03/20/24 11:17 Normal [facility] Outpatient Surgery Discharge Instructionon 03-20-2024 Outpatient Surgery Discharge Instruction Outpatient Surgery Discharge Instruction [place] [id number] Patient Discharge Instructions PERSON INFORMATION Name: SHEY BOSS Date of : 1950 Current Date: 03/20/2024 12:58:56 PHYSICIANS Admitting Physician: Yovanny OLIVO, Dafne Torres Discharge Diagnosis: SHEY BOSS has been [...] to serve you. Thank you for choosing [facility] HERE ARE THE MEDICATION CHANGES [...] (at bedtime). fluticasone nasal (Flonase 0.05 mg/inh [place]) 2 Sprays Nasal Inhalation every day. losartan [...] EDUCATION INFORMATION Instructions: Medication Leaflets: [facility] Proceduralon 03-20-2024 Procedural Procedural Patient: SHEY BOSS Age: 73 years Sex: Female : 1950 Associated Diagnoses: None Author: Daquan Schuler MD Postoperative Information Postoperative disposition: Postoperative disposition: To PACU. Optimetrix number: Optimetrix number [id number]. Anesthetic utilized: General. Health Status Allergies: Allergic [...] ( To home ). Normal [facility] Procedural Procedural Patient: SHEY BOSS Age: 73 [...] 1 tab, Oral, Daily Flonase 0.05 mg/inh [place]: 2 spray(s), Nasal, Daily, Refill(s) 0, Dry [...] a day (at bedtime) Flonase 0.05 mg/inh [place] 2 spray(s), Nasal, Daily losartan 25 mg [...] All Problems BMI 39.0-39.9,adult / SNOMED CT 722316570 / Confirmed Chronic obstructive pulmonary disease / SNOMED CT 78201853 / Confirmed Dyslipidemia / SNOMED CT 7720247147 / Confirmed Dysphagia / SNOMED CT 46845156 / Confirmed GERD (gastroesophageal reflux disease) / SNOMED CT 383679391 / Confirmed Hiatal hernia / SNOMED CT 709461235 / Confirmed HTN (hypertension) / SNOMED CT 3070929122 / Confirmed Insomnia / SNOMED CT 056379438 / Confirmed Lower extremity edema / SNOMED CT 342716730 / Confirmed Morbid obesity / SNOMED CT 354399859 / Confirmed EDWIN (obstructive sleep apnea) / SNOMED CT 374280271 / Confirmed Screening for malignant neoplasm of colon / SNOMED CT 642729647 / Confirmed Seasonal allergic rhinitis / SNOMED CT 675551722 / Confirmed TIA (transient ischemic attack) / SNOMED CT 047986685 / Confirmed Resolved: At risk for falls / SNOMED CT 468208355 Problem added when Risk for Falls Careplan was initiated. Resolved due to patient discharge. Resolved: Hernia / SNOMED CT 947020007 Resolved: Potential for deficient knowledge of cerebrovascular accident (CVA) / IMO [id number] problem added based on Stroke Powerplan ordered. Resolved due to patient discharge. Resolved: Sleep apnea / SNOMED CT 792129126, Active Problems (14) BMI 39.0-39.9,adult Chronic obstructive pulmonary disease Dyslipidemia Dysphagia GERD (gastroesophageal reflux disease) Hiatal hernia HTN (hypertension) Insomnia Lower extremity edema Morbid obesity EDWIN (obstructive sleep apnea) Screening for malignant neoplasm of colon Seasonal allergic rhinitis TIA (transient ischemic (more content not included)... Normal [facility] ALL FOLIC ACIDon 03-07-2024 FOLATE 23.60 ng/mL 8.60 - 58.90 ng/mL [facility] ALL THYROID STIM HORMONEon 0 03-07-2024 TSH Qn 2.782 m[IU]/L [facility] No Panel Informationon 03-07 CLINISYNC [facility] Ambulatory Visit Summaryon 0 02-26-2024 Ambulatory Visit Summary Ambulatory Visit Summary SHEY BOSS :1950 Visit Date:02/26/2024 Ambulatory Visit Instructions Your Diagnosis Dysphagia Hiatal hernia GERD (gastroesophageal reflux disease) Your Care Team Attending Physician - Yovanny OLIVO, Dafne Torres Primary Care Physician - LATRELL JACK [...] mg Tab) fluticasone nasal (Flonase 0.05 mg/inh [place]) losartan (losartan 25 mg Tab) multivitamin with [...] Unchanged fluticasone nasal (Flonase 0.05 mg/ inh [place]) 2 Sprays Nasal Inhalation Every day Contact [...] choosing us for your care. Kary Jernigan [facility] Gastroenterology Office/Clin ic Noteon 02-26-2024 Gastroenterology [...] or gangrene) reports she had esophagram in [place] no egd in the past declined surgery [...] a day (at bedtime) Flonase 0.05 mg/inh [place], 2 spray(s), Nasal, Daily losartan 25 mg [...] virus vaccine, inactivated 05/03/2022 Recorded SARS-CoV-2 (COVID-19) [id number] 05/03/2022 Recorded influenza virus vaccine, inactivated 04/12/2021 [...] influenza virus vaccine, inactivated 04/16/2015 Recorded Normal [facility] Comment on above: Result Comment: Elec tronically Signed By: Yovanny OLIVO, Dafne Torres\.br\Date and Time Signed: 02/26/24 09:38 EDT IntraOperative Documentson 0 10-19-2023 IntraOperative Documents [id number] 0TIFF [facility] Consenton 10-16-2023 Consent [id number]#1.00 TIFF [facility] Discharge Instructionson Discharge Instructions [id number]#1.00 TIFF [facility] Main OR Intraoperative Recor don 10-16-2023 Main OR Intraoperative Record IntraOp Document Type FT Summary Primary Physician: Pa WEBB MD Finalized Date/Time: 10/16/23 09:46:21 Pt. Name: KARYNSHEY/Sex: 1950 Female Med Rec #: [id number] Physician: Pa WEBB MD Financial #: [id number] Pt. Type: O Room/Bed: / Admit/Disch: 10/13/23 [...] Gross Role Performed Anesthesiologist Surgeon - Primary Equal Employment Opportunity Officer - Primary Alarm Service Technician Time In 10/13/23 08:55:00 10/13/23 08:55:00 10/13/23 [...] and tissue Entry 1 Skin Integrity Intact, [place], Warm, and Skin Abnormality No Dry Outcomes [...] (more content not included)... Normal [facility] Postoperative Documentson Postoperative Documents [id number]#1.00 TIFF Normal [facility] Reminderson 10-16-2023 Reminders - From: Nhi Aguirre LPN To: N - Clinical; Sent: 10/16/2023 10:15:48 EDT Show up: 09/11/2033 07:00:00 EST Subject: colonoscopy recall Due Date/Time: 10/12/2033 07:00:00 EDT Reminder/Recall Patient due for screening colonoscopy 10/12/2033. Normal [facility] Colonoscopy Procedure Report on 10-13-2023 Colonoscopy Procedure [...] for screening for malignant neoplasm of rectum (FAC40-KB Z12.12, Discharge, Medical). Course: Progressing as expected. Recommendations: Repeat colonoscopy:: In 10 years. Follow-up:: if problems/questions. Diet:: Regular diet. Medication resumption:: Continue current medications. Return to activities:: After 24 hours. Education and Follow-up: Counseled: Family. [facility] Comment on above: Other Comment: Samreen dueñas Attachment - attachment storage system not supported [id number] Can be viewed in source systemMissing Attachment - attachment storage system not supported [id number] Can be viewed in source systemMissing Attachment - attachment storage system not supported [id number] Can be viewed in source systemMissing Attachment - attachment storage system not supported [id number] Can be viewed in source systemMissing Attachment - attachment storage system not supported [id number] Can be viewed in source system Consent for Treatmenton Consent for Treatment [id number]#1.00T IFF [facility] Discharge Instructionson Discharge Instructions SHEY BOSS [...] mg Tab) fluticasone nasal (Flonase 0.05 mg/inh [place]) losartan (losartan 25 mg Tab) multivitamin with [...] Pa WEBB When: Only if needed Where: [facility] [address], [address] [place] [phone]- Business (1) Medications What How Much When [...] Unchanged fluticasone nasal (Flonase 0.05 mg/ inh [place]) 2 Sprays Nasal Inhalation Every day Unchanged [...] as instru (more content not included)... Normal [facility] Comment on above: Result Comment: Elec tronically Signed By: Marcy FORDE, Mariaelena\.maikol\Date and Time Signed: 10/13/23 09:33 EDT Inpatient Patient Summaryon 10-13-2023 Inpatient Patient Summary [address] [address] [facility] Clinical Discharge Instructions PERSON INFORMATION Name: SHEY BOSS PHYSICIANS Admitting Physician: Pa WEBB MD Attending Physician: Pa WEBB MD PCP: GUERO OLIVO, LATRELL Discharge Diagnosis: Encounter for colorectal cancer screening; Encounter for screening for malignant neoplasm of rectum Comment: PATIENT EDUCATION INFORMATION Instructions: Medication Leaflets: Follow up: With: Address: When: Pa [facility], [address], [employer] [address] [address] Business (1) , only if [...] (at bedtime). fluticasone nasal (Flonase 0.05 mg/inh [place]) 2 Sprays Nasal Inhalation every day. losartan [...] needed for sleep. Comment: Normal [facility] Main OR PACU I Recordon Main OR PACU I Record PACU Phase I Document Type FT Summary Primary Physician: Pa WEBB MD Finalized Date/Time: 10/13/23 09:54:27 Pt. Name: SHEY BOSS./Sex: 1950 Female Med Rec #: [id number] Physician: Pa WEBB MD Financial #: [id number] Pt. Type: O Room/Bed: / Admit/Disch: 10/13/23 [...] Vidal RN 10/13/23 09:54 Normal [facility] Main OR Preoperative Recordo n 10-13-2023 Main OR Preoperative Record Holding Area Document Type FT Summary Primary Physician: Pa WEBB MD Finalized Date/Time: 10/13/23 08:06:06 Pt. Name: SHEY BOSS Tamie/Sex: 1950 Female Med Rec #: [id number] Physician: Pa WEBB MD Financial #: [id number] Pt. Type: O Room/Bed: / Admit/Disch: 10/13/23 07:49:21 - Institution: Case Times Holding FT Pre-Care Text: Verifies consent for planned procedure, identifies individual values and wishes concerning care, includes family members in perioperative teaching Secures patient's records' belongings, and valuables, maintains patient's dignity and privacy, and maintains patient confidentiality Entry 1 In Holding 10/13/23 08:02:00 Outcomes Met? Yes Last Modified By: Trip Domínguez 10/13/23 08:02:18 Post-Care Text: The patient [...] comments below for reason Last Modified By: Trip Domínguez 10/13/23 08:03:15 Finalized By: Domínguez, Trip N Document Signatures Signed By: Trip Domínguez 10/13/23 08:06 Normal [facility] Monitor Recordon 10-13-2023 Monitor Record [id number]#1.00 TIFF Normal [facility] Monitor Record [id number]#1.00 TIFF Normal [facility] Outpatient Surgery Discharge Instructionon 10-13-2023 Outpatient Surgery Discharge Instruction [place] [id number] Patient Discharge Instructions PERSON INFORMATION Name: ALPA [...] Follow up: With: Address: When: Pa [address], [address], [facility] [address] [place] [address] Business (1) , only if needed Pharmacy Information: You may receive a survey from [employer] asking you to rate your care experience. Your feedback is important and will help us understand what we do well and how we can improve the quality of care we provide to you, your loved ones and our community. It?s an honor to serve you. Thank you for choosing [facility] HERE ARE THE MEDICATION CHANGES [...] (at bedtime). fluticasone nasal (Flonase 0.05 mg/inh [place]) 2 Sprays Nasal Inhalation every day. losartan [...] EDUCATION INFORMATION Instructions: Medication Leaflets: [facility] Patient Education - Texton 0 10-13-2023 [...] severe or gets worse throughout the day. [facility] Progress Note-Physicianon Progress Note-Physician Patient: SHEY BOSS Age: 73 years Sex: Female : 1950 Associated Diagnoses: None Author: Shaji Bethea Jr., DO Postoperative Information Postoperative disposition: Postoperative disposition: Home. Optimetrix number: Optimetrix number [id number]. Anesthetic utilized: General. Physical Examination Vital Signs [...] and To home ). Normal [facility] Comment on above: Result Comment: Elec tronically [...] m2 Documented Medications Documented Flonase 0.05 mg/inh [place]: 2 spray(s), Nasal, Daily, Refill(s) 0, Dry [...] a day (at bedtime) Flonase 0.05 mg/inh [place] 2 spray(s), Nasal, Daily losartan 25 mg [...] All Problems BMI 39.0-39.9,adult / SNOMED CT 301901445 / Confirmed Chronic obstructive pulmonary disease / SNOMED CT 06406768 / Confirmed Dyslipidemia / SNOMED CT 1478625554 / Confirmed GERD (gastroesophageal reflux disease) / SNOMED CT 025365281 / Confirmed Hiatal hernia / SNOMED CT 496089989 / Confirmed HTN (hypertension) / SNOMED CT 5194555369 / Confirmed Insomnia / SNOMED CT 527219671 / Confirmed Lower extremity edema / SNOMED CT 928432086 / Confirmed Morbid obesity / SNOMED CT 038441388 / Confirmed EDWIN (obstructive sleep apnea) / SNOMED CT 286202840 / Confirmed Screening for malignant neoplasm of colon / SNOMED CT 558346649 / Confirmed Seasonal allergic rhinitis / SNOMED CT 670754256 / Confirmed TIA (transient ischemic attack) / SNOMED CT 239823262 / Confirmed Resolved: At risk for falls / SNOMED CT 250448773 Problem added when Risk for Falls Careplan was initiated. Resolved due to patient discharge. Resolved: Hernia / SNOMED CT 927507094 Resolved: Potential for deficient knowledge of cerebrovascular accident (CVA) / IMO 76948285 problem added based on Stroke Powerplan ordered. Resolved due to patient discharge. Resolved: Sleep apnea / SNOMED CT 513716667 Histories Past Medical History: Resolved Hernia (171506056): Resolved. Sleep apnea (697756811): Resolved. Procedure history: ORIF - Open reduction of fracture of ankle with internal fixation ([id number]). Meniscal repair (275326626). Tonsillectomy (776528365). Hand tendon repaired (317230669). Social History Social & Psychosocial Habits Alcohol [...] (more content not included)... Normal [facility] Comment on above: Result Comment: Elec tronically Signed By: Shaji Bethea Jr., DO\.br\Date and Time Signed: 10/13/23 08:04 EDT Consent for Procedure/Surger yon 09-13-2023 Consent for Procedure/Surgery [id number]#[id number] FF Normal [facility] Ambulatory Visit Summaryon 0 09-12-2023 Ambulatory Visit [...] mg Tab) fluticasone nasal (Flonase 0.05 mg/inh [place]) losartan (losartan 25 mg Tab) multivitamin with [...] Unchanged fluticasone nasal (Flonase 0.05 mg/ inh [place]) 2 Sprays Nasal Inhalation Every day Contact [...] us for your care. Normal [facility] Provider Letteron 08-25-2023 Provider Letter (Inserted Image. Celia ble to display) August 25, 2023 SHEY [address] [place] [address] : 1950 Dear Ms. Boss, We have been trying to reach you with no success regarding a referral from Dr Jack. It is important that you return our call upon receiving this letter so that we can set up an appointment for you in either our [place] or [place] office. Also, at the time of your call, please provide us with your current demographic and insurance information. Thank you for your prompt attention to this matter. Sincerely, [facility] General Surgery [phone] Normal [facility] Physician Referralon 024 Physician Referral [id number]#1.00T IFF Normal [facility] CT LUNG CANCER SCREENINGon 0 07-28-2022 CT [...] MEHNAZ SANTIAGO Date: 2022-07-28 15:28 Normal [facility] BNPon 02-22-2022 Natriuretic peptide B (Bld) [Mass/Vol] 108.0 pg/mL Normal <=900.0 [facility] Comment on above: Performed By: #### B MP, BNP, HSTROPN ####[facility] [address] [place] [address]Dr. Felisa Trujillo CBC AUTO DIFFon 02-22-2022 BASO # 0.0 103/ul Normal 0.0-0.1 [facility] Comment on above: Performed By: #### C BC ####[facility] [address] [place], [place] [address]Dr. Felisa Trujillo Basophils/100 WBC (Bld) 0.7 % Normal 0.2-2.0 [facility] Comment on above: Performed By: #### C BC ####[facility] [address] [place], [place] [address]Dr. Felisa Trujillo EO # 0.1 103/ul Normal 0.0-0.7 [facility] Comment on above: Performed By: #### C BC ####[facility] [address] [place], [place] [address]Dr. Felisa Trujillo Eosinophils/100 WBC (Bld) 1.4 % Normal 0.9-7.0 [facility] Comment on above: Performed By: #### C BC ####[facility] [address] [place], [place] [address]Dr. Felisa Trujillo Erythrocyte distribution width (RBC) [Ratio] 13.2 % Normal 11.0-15.0 [facility] Comment on above: Performed By: #### C BC ####[facility] [address] [place] [address]Dr. Felisa Trujillo Hematocrit (Bld) [Volume fraction] 36.6 % Normal 36.0-48.0 [facility] Comment on above: Performed By: #### C BC ####[facility] [address] [place] [address]Dr. Felisa Trujillo Hemoglobin (Bld) [Mass/Vol] 12.7 g/dL Normal 12.0-16.0 [facility] Comment on above: Performed By: #### C BC ####[facility] [address] [place] [address]Dr. Felisa Trujillo IG # 0.01 10e3/ul Normal 0.00-0.03 [facility] Comment on above: Performed By: #### C BC ####[facility] [address] [place], [place] [address]Dr. Felisa Trujillo IG % 0.2 % Normal 0.0-0.5 [facility] Comment on above: Performed By: #### C BC ####[facility] [address] [place], [place] [address]Dr. Felisa Trujillo LYMPH # 1.0 103/ul Critically low 1.2-3.8 [facility] Comment on above: Performed By: #### C BC ####[facility] [address] [place], [place] [address]Dr. Felisa Trujillo Lymphocytes/100 WBC (Bld) 22.3 % Normal 20.5-60.0 [facility] Comment on above: Performed By: #### C BC ####[facility] [address] [place], [place] [address]Dr. Felisa Trujillo MANUAL DIFF REQ NO Normal [facility] Comment on above: Performed By: #### C BC ####[facility] [address] [place], [place] [address]Dr. Felisa Trujillo MCH (RBC) [Entitic mass] 31.8 pg Normal 26.7-34.0 [facility] Comment on above: Performed By: #### C BC ####[facility] [address] [place] [address]Dr. Felisa Trujillo MCHC (RBC) [Mass/Vol] 34.7 g/dL Normal 29.9-35.2 [facility] Comment on above: Performed By: #### C BC ####[facility] [address] [place] [address]Dr. Felisa Trujillo MCV (RBC) [Entitic vol] 91.7 fL Normal 81.0-99.0 [facility] Comment on above: Performed By: #### C BC ####[facility] [address] [place] [address]Dr. Felisa Trujillo MONO # 0.5 103/ul Normal 0.3-0.8 [facility] Comment on above: Performed By: #### C BC ####[facility] [address] [place] [address]Dr. Felisa Ronnie Monocytes/100 WBC (Bld) 11.7 % Normal 1.7-12.0 [facility] Comment on above: Performed By: #### C BC ####[facility] [address] [place] [address]Dr. Felisa Trujillo NEUT # 2.7 103/ul Normal 1.4-6.5 [facility] Comment on above: Performed By: #### C BC ####[facility] [address] [place] [address]Dr. Felisa Trujillo Neutrophils/100 WBC (Bld) 63.7 % Normal 43.0-75.0 [facility] Comment on above: Performed By: #### C BC ####[facility] [address] [place] [address]Dr. Felisa Trujillo Platelet mean volume (Bld) [Entitic vol] 10.2 fL Normal 9.5-13.5 [facility] Comment on above: Performed By: #### C BC ####[facility] [address] [place] [address]Dr. Felisa Ronnie PLT 149 103/ul Critically low 150-450 [facility] Comment on above: Performed By: #### C BC ####[facility] [address] [place], [place] [address]Rp. Felisa Trujillo RBC 3.99 106/ul Critically low 4.20-5.40 [facility] Comment on above: Performed By: #### C BC ####[facility] [address] [place], [place] [address]Vh. Felisa Trujillo WBC 4.3 103/ul Normal 4.0-11.0 [facility] Comment on above: Performed By: #### C BC ####[facility] [address] [place], [place] [address]Xf. Felisa Trujillo Covid-19 PCR (CVDTBH)on 02-07 SARS-CoV-2 (COVID-19) RNA DUGLAS+probe Ql (Unsp spec) Detected Critically abnormal NOT DETECTED [facility] Comment on above: Result Comment: This test is not yet approved or cleared by the [place] FDA. When there are no FDA-approved or cleared tests available, and other criteria are met, FDA can make tests available under an emergency access mechanism called an Emergency Use Authorization (EUA). The EUA for this test is supported by the Union of Health and Human Service's declaration that [...] be used). Performed By: #### C VDTBH ####[facility] [address] [place] [address]Dr. Felisa Trujillo PROF CHEM 8 (BAS METB)on Anion gap [Moles/Vol] 14.9 mmol/L Normal [facility] Comment on above: Performed By: #### B MP, BNP, HSTROPN ####[facility] [address] [place], [place] [address]KeMichelle Trujillo Calcium [Mass/Vol] 8.9 mg/dL Normal 8.5-10.1 [facility] Comment on above: Performed By: #### B MP, BNP, HSTROPN ####[facility] [address] [place] [address]Dr. Felisa Trujillo Chloride [Moles/Vol] 104 mmol/L Normal 98-107 [facility] Comment on above: Performed By: #### B MP, BNP, HSTROPN ####[facility] [address] [place] [address]Dr. Felisa Trujillo CO2 [Moles/Vol] 24.0 mmol/L Normal 21.0-32.0 [facility] Comment on above: Performed By: #### B MP, BNP, HSTROPN ####[facility] [address] [place] [address]Dr. Felisa Trujillo Creatinine [Mass/Vol] 0.98 mg/dL Normal 0.55-1.02 [facility] Comment on above: Performed By: #### B MP, BNP, HSTROPN ####[facility] [address] [place], [place] [address]Dr. Felisa Trujillo EGFR-AF CITIZEN [place] >60 Normal >=60 [facility] Comment on above: Performed By: #### B MP, BNP, HSTROPN ####[facility] [address] [place], [place] [address]Dr. Felisa Trujillo EGFR-NON AF CITIZEN OF [place] 56 mL/min/1.73m2 Critically low >=60 [facility] Comment on above: Performed By: #### B MP, BNP, HSTROPN ####[facility] [address] [place], [place] [address]Dr. Felisa Trujillo Glucose [Mass/Vol] 136 mg/dL Critically high 74-106 [facility] Comment on above: Performed By: #### B MP, BNP, HSTROPN ####[facility] [address] [place], [place] [address]Dr. Felisa Trujillo Potassium [Moles/Vol] 3.9 mmol/L Normal 3.5-5.1 [facility] Comment on above: Performed By: #### B MP, BNP, HSTROPN ####[facility] [address] [place], [place] [address]Th. Felisa Trujillo Sodium [Moles/Vol] 139 mmol/L Normal 136-145 [facility] Comment on above: Performed By: #### B MP, BNP, HSTROPN ####[facility] [address] [place] [address]Dr. Felisa Trujillo Urea nitrogen [Mass/Vol] 14.0 mg/dL Normal 7.0-18.0 [facility] Comment on above: Performed By: #### B MP, BNP, HSTROPN ####[facility] [address] [place] [address]Dr. Felisa Trujillo Urea nitrogen/Creatinine [Mass ratio] 14.3 mg/mg Normal [facility] Comment on above: Performed By: #### B MP, BNP, HSTROPN ####[facility] [address] [place] [address]Dr. Felisa Trujillo TROPONIN, HIGH SENSITIVITYon 02-22-2022 HSTROP 5.9 pg/mL Normal 4.0-51.3 [facility] Comment on above: Result Comment: CUT- OFF POINTS HAVE BEEN ESTABLISHED BASED ON THE FOURTH UNIVERSAL DEFINITIONS OF MYOCARDIAL INFARCTION. THE UPPER REFERENCE LIMIT (URL) OF TROPONIN, DEFINED THE 99TH PERCENTILE OF cTnI DISTRIBUTION IN A REFERENCE POPULATION, HAS BEEN CONFIRMED THE DECISION THRESHOLD FOR [place] DIAGNOSIS. Performed By: #### B MP, BNP, HSTROPN ####[facility] [address] [place] [address]Dr. Felisa Trujillo XR CHEST 1 Von 02-22-2022 [...] Date: 2022-02-22 13:30 Normal [facility] MG MAMM SCREEN 3D RONALD CADon 11-11-2021 MG MAMM SCREEN 3D RONALD CAD Patient: SHEY BOSS Exam Date: 11/11/2021 : 1950 Gender:F Ordering : DR LATRELL JACK . Admission #: [id number] Family : Order #: [id number] CLICK HERE TO VIEW EXAM RADIOLOGY REPORT [...] lung cancer at age 46. LOCATION: [facility] BREAST COMPOSITION: Almost entirely fatty. FINDINGS: [...] MD on 11/11/2021 at 13:04 Normal [facility] BNPon 11-02-2021 Natriuretic peptide B (Bld) [Mass/Vol] 42.0 pg/mL Normal <=900.0 [facility] Comment on above: Performed By: #### H STROPN, CMP, BNP #### [facility] [address] [place] [address] [address] Felisa Trujillo CBC AUTO DIFFon 11-02-2021 BASO # 0.1 103/ul Normal 0.0-0.1 [facility] Comment on above: Performed By: #### C BC #### [facility] [address] [place] [address] Felisa Trujillo Basophils/100 WBC (Bld) 0.8 % Normal 0.2-2.0 [facility] Comment on above: Performed By: #### C BC #### [facility] [address] [place] [address] Dr. Felisa Trujillo EO # 0.3 103/ul Normal 0.0-0.7 [facility] Comment on above: Performed By: #### C BC #### [facility] [address] [place] [address] Dr. Felisa Trujillo Eosinophils/100 WBC (Bld) 3.9 % Normal 0.9-7.0 [facility] Comment on above: Performed By: #### C BC #### [facility] [address] [place] [address] Dr. Felisa Trujillo Erythrocyte distribution width (RBC) [Ratio] 12.7 % Normal 11.0-15.0 [facility] Comment on above: Performed By: #### C BC #### [facility] [address] [place] [address] Dr. Felisa Trujillo Hematocrit (Bld) [Volume fraction] 40.2 % Normal 36.0-48.0 [facility] Comment on above: Performed By: #### C BC #### [facility] [address] [place] [address] Dr. Felisa Trujillo Hemoglobin (Bld) [Mass/Vol] 13.6 g/dL Normal 12.0-16.0 [facility] Comment on above: Performed By: #### C BC #### [facility] [address] [place] [address] Dr. Felisa Trujillo IG # 0.02 10e3/ul Normal 0.00-0.03 [facility] Comment on above: Performed By: #### C BC #### [facility] [address] [place] [address] Dr. Felisa Trujillo IG % 0.3 % Normal 0.0-0.5 [facility] Comment on above: Performed By: #### C BC #### [facility] [address] [place] [address] Dr. Felisa Trujillo LYMPH # 1.9 103/ul Normal 1.2-3.8 [facility] Comment on above: Performed By: #### C BC #### [facility] [address] [place] [address] Dr. Felisa Trujillo Lymphocytes/100 WBC (Bld) 30.0 % Normal 20.5-60.0 [facility] Comment on above: Performed By: #### C BC #### [facility] [address] [place] [address] Dr. Felisa Trujillo MANUAL DIFF REQ NO Normal [facility] Comment on above: Performed By: #### C BC #### [facility] [address] [place] [address] Dr. Felisa Trujillo MCH (RBC) [Entitic mass] 31.5 pg Normal 26.7-34.0 [facility] Comment on above: Performed By: #### C BC #### [facility] [address] [place] [address] Dr. Felisa Trujillo MCHC (RBC) [Mass/Vol] 33.8 g/dL Normal 29.9-35.2 [facility] Comment on above: Performed By: #### C BC #### [facility] [address] [place] [address] Dr. Felisa Trujillo MCV (RBC) [Entitic vol] 93.1 fL Normal 81.0-99.0 [facility] Comment on above: Performed By: #### C BC #### [facility] [address] [place] [address] Dr. Felisa Trujillo MONO # 0.6 103/ul Normal 0.3-0.8 [facility] Comment on above: Performed By: #### C BC #### [facility] [address] [place] [address] Dr. Felisa Trujillo Monocytes/100 WBC (Bld) 8.5 % Normal 1.7-12.0 [facility] Comment on above: Performed By: #### C BC #### [facility] [address] [place] [address] Dr. Felisa Trujillo NEUT # 3.7 103/ul Normal 1.4-6.5 [facility] Comment on above: Performed By: #### C BC #### [facility] [address] [place] [address] Dr. Felisa Trujillo Neutrophils/100 WBC (Bld) 56.5 % Normal 43.0-75.0 [facility] Comment on above: Performed By: #### C BC #### [facility] [address] [place] [address] Dr. Felisa Trujillo Platelet mean volume (Bld) [Entitic vol] 9.9 fL Normal 9.5-13.5 [facility] Comment on above: Performed By: #### C BC #### [facility] [address] [place] [address] Dr. Felisa Trujillo PLT 193 103/ul Normal 150-450 [facility] Comment on above: Performed By: #### C BC #### [facility] [address] [place] [address] Dr. Felisa Trujillo RBC 4.32 106/ul Normal 4.20-5.40 [facility] Comment on above: Performed By: #### C BC #### [facility] [address] [place] [address] Dr. Felisa Trujillo WBC 6.5 103/ul Normal 4.0-11.0 [facility] Comment on above: Performed By: #### C BC #### [facility] [address] [place] [address] Dr. Felisa Trujillo [facility]09 SARS-CoV-2 (COVID-19) RNA DUGLAS+probe Ql (Unsp spec) Not detected Normal NOT DETECTED [facility] Comment on above: Result Comment: When [...] for this test is supported by the Transit Operations Supervisor of Health and Human Service's declaration that [...] used). Performed By: #### C VDTBH #### [facility] [address] [address] [address] Felisa Trujillo LACTATE/LACTIC ACIDon 2021 Lactate [Moles/Vol] 1.0 mmol/L Normal 0.4-2.0 [facility] Comment on above: Performed By: #### L ACT ####[facility] [address] [address]Dr. eFlisa Trujillo PH VENOUS BLOODon 11-02-2021 PCO2 VENOUS 40.3 mmHg Normal 40.0-52.0 [facility] Comment on above: Performed By: #### P HVEN ####[facility] [address] [address]Dr. Felisa Trujillo pH VENOUS 7.431 Critically high 7.330-7.430 [facility] Comment on above: Performed By: #### P HVEN ####[facility] [address] [address]Dr. Felisa Trujillo PROF 14(COMP METB)on 022 Albumin [Mass/Vol] 4.1 g/dL Normal 3.4-5.0 [facility] Comment on above: Performed By: #### H STROPN, CMP, BNP ####[facility] [address] [address]Dr. Felisa Trujillo Albumin/Globulin [Mass ratio] 1.1 {ratio} Normal [facility] Comment on above: Performed By: #### H STROPN, CMP, BNP ####[facility] [address] [address]DrMichelle Trujillo ALP [Catalytic activity/Vol] 120 U/L Critically high 46-116 [facility] Comment on above: Performed By: #### H STROPN, CMP, BNP ####[facility] [address] [address]Dr. Felisa Trujillo ALT [Catalytic activity/Vol] 29 U/L Normal 14-59 [facility] Comment on above: Performed By: #### H STROPN, CMP, BNP ####[facility] [address] [address]Dr. Felisa Trujillo Anion gap [Moles/Vol] 14.2 mmol/L Normal [facility] Comment on above: Performed By: #### H STROPN, CMP, BNP ####[facility] [address] [address]Dr. Felisa Trujillo AST [Catalytic activity/Vol] 24 U/L Normal 15-37 [facility] Comment on above: Performed By: #### H STROPN, CMP, BNP ####[facility] [address] [address]Dr. Felisa Trujillo Bilirubin [Mass/Vol] 0.6 mg/dL Normal 0.2-1.0 [facility] Comment on above: Performed By: #### H STROPN, CMP, BNP ####[facility] [address] [place], [place] [address]Dr. Felisa Trujillo Calcium [Mass/Vol] 8.8 mg/dL Normal 8.5-10.1 [facility] Comment on above: Performed By: #### H STROPN, CMP, BNP ####[facility] [address] [address]Dr. Felisa Trujillo Chloride [Moles/Vol] 103 mmol/L Normal 98-107 [facility] Comment on above: Performed By: #### H STROPN, CMP, BNP ####[facility] [address] [address]Dr. Felisa Trujillo CO2 [Moles/Vol] 25.3 mmol/L Normal 21.0-32.0 [facility] Comment on above: Performed By: #### H STROPN, CMP, BNP ####[facility] [address] [address]Dr. Felisa Trujillo Creatinine [Mass/Vol] 0.86 mg/dL Normal 0.55-1.02 [facility] Comment on above: Performed By: #### H STROPN, CMP, BNP ####[facility] [address] [address]Dr. Felisa Trujillo EGFR-AF CITIZEN [place] >60 Normal >=60 [facility] Comment on above: Performed By: #### H STROPN, CMP, BNP ####[facility] [address] [address]Dr. Felisa Trujillo EGFR-NON AF CITIZEN OF [place] >60 Normal >=60 [facility] Comment on above: Performed By: #### H STROPN, CMP, BNP ####[facility] [address] [address]Dr. Felisa Trujillo Globulin (S) [Mass/Vol] 3.6 g/dL Normal [facility] Comment on above: Performed By: #### H STROPN, CMP, BNP ####[facility] [address] [address]Dr. Krystakun Ronnie Glucose [Mass/Vol] 90 mg/dL Normal 74-106 [facility] Comment on above: Performed By: #### H STROPN, CMP, BNP ####[facility] [address] [place], [place] [address]Dr. Felisa Ronnie Potassium [Moles/Vol] 3.5 mmol/L Normal 3.5-5.1 [facility] Comment on above: Performed By: #### H STROPN, CMP, BNP ####[facility] [address] [address]Dr. Felisa Trujillo Protein [Mass/Vol] 7.7 g/dL Normal 6.1-8.2 [facility] Comment on above: Performed By: #### H STROPN, CMP, BNP ####[facility] [address] [address]Dr. Felisa Trujillo Sodium [Moles/Vol] 139 mmol/L Normal 136-145 [facility] Comment on above: Performed By: #### H STROPN, CMP, BNP ####[facility] [address] [address]Dr. Felisa Ronnie Urea nitrogen [Mass/Vol] 13.0 mg/dL Normal 7.0-18.0 [facility] Comment on above: Performed By: #### H STROPN, CMP, BNP ####[facility] [address] [address]Dr. Felisa Trujillo Urea nitrogen/Creatinine [Mass ratio] 15.1 mg/mg Normal [facility] Comment on above: Performed By: #### H STROPN, CMP, BNP ####[facility] [address] [id number]. Felisa Trujillo PROTIMEon 11-02-2021 INR Coag (PPP) [Relative time] 0.99 {INR} Normal [facility] Comment on above: Performed By: #### P TT, PT #### [facility] [address] [place] [address] Dr. Felisa Trujillo INR GUIDELINES SEE BELOW Normal [facility] Comment on above: Result Comment: KAY RED INR: 2.0 - 3.0 CONDITIONS NOT LISTED BELOW 2.5 - 3.5 FOR PROSTHETIC HEART VALVE REPLACEMENT 2.5 - 3.5 RECURRENT THROMBOSIS Performed By: #### P TT, PT #### [facility] [address] [address] [address] Felisa Trujillo PT Coag (PPP) [Time] 10.7 s Normal 9.0-11.6 [facility] Comment on above: Performed By: #### P TT, PT #### [facility] [address] [address] [address] Felisa Trujillo PTTon 11-02-2021 aPTT Coag (Bld) [Time] 25.9 s Normal 22.3-36.2 [facility] Comment on above: Performed By: #### P TT, PT #### [facility] [address] [place] [address] Dr. Felisa Trujillo TROPONIN, HIGH SENSITIVITYon 11-02-2021 HSTROP 8.7 pg/mL Normal 4.0-51.3 [facility] Comment on above: Result Comment: CUT- OFF POINTS HAVE BEEN ESTABLISHED BASED ON THE FOURTH UNIVERSAL DEFINITIONS OF MYOCARDIAL INFARCTION. THE UPPER REFERENCE LIMIT (URL) OF TROPONIN, DEFINED THE 99TH PERCENTILE OF cTnI DISTRIBUTION IN A REFERENCE POPULATION, HAS BEEN CONFIRMED THE DECISION THRESHOLD FOR [place] DIAGNOSIS. Performed By: #### H STROPN, CMP, BNP #### [facility] [address] [place], [place] [address] Dr. Felisa Trujillo Covid-19 PCR ([facility])on SARS-CoV-2 (COVID-19) RNA DUGLAS+probe Ql (Unsp spec) Not detected Normal NOT DETECTED [facility] Comment on above: Result Comment: This test is not yet approved or cleared by the [place] FDA. When there are no FDA-approved or cleared tests available, and other criteria are met, FDA can make tests available under an emergency access mechanism called an Emergency Use Authorization (EUA). The EUA for this test is supported by the Union of Health and Human Service's (HHS's) declaration [...] SARS-CoV-2. Performed By: #### C VDTBH #### [facility] [address] [place], [place] [address] Dr. Felisa Trujillo XR CHEST 2 Von [...] by: MEHNAZ SANTIAGO Date: 2021-09-02 14:39 Normal [facility] - AP Resultson 9 Lab - AP Results [id number]#1.00OT [facility] Pathology Sendout Teston Pathology Send Out. See Report [facility] Comment on above: Order Comment: left ring finger , cyst tendon sheath Performed By: #### 2 [id number] ####[facility] (DEFAULT)[address] [place] [address] Coding Summaryon 02-08-2019 Coding Summary CODING DATE: 019 [facility] STATUS: Home PAYOR: Medicare MC APC DESCRIPTION 5112 Level 2 Musculoskeletal Procedures ADMIT DX: REASON FOR VISIT DX: M65.342 Trigger finger, left ring finger FINAL DX: PRINCIPAL: M65.342 Trigger finger, left ring finger SECONDARY: M67.442 Ganglion, left hand J44.9 Chronic obstructive pulmonary disease, unspecified PYMT PROC APC STAT DESCRIPTION DOCTOR NAME DATE 11637 5112 J1 Excision of lesion of Daquan [...] Cassy Bradley Date Saved: 02/08/2019 11:52 am [facility] Consent Formson 02-05-2019 Consent Forms [id number]#1.00OT [facility] Discharge Instructionson Discharge Instructions [id number]#1.00OT [facility] History and Physicalon 02-05 History and Physical [id number]#1.00OT [facility] MAGR Intraoperative Recordon 02-05-2019 MAGR Intraoperative Record MAGR Intra-Op Record Summary Primary Physician: Daquan Antunez DO Finalized Date/Time: 02/05/19 07:41:01 Pt. Name: SHEY BOSS /Sex: 1950 FEMALE Med Rec #: [id number] Physician: Daquan Antunez DO Financial #: [id number] Pt. Type: D Room/Bed: / Admit/Disch: 02/04/19 [...] Role Performed Surgeon - Primary Anesthesiologist of Equal Employment Opportunity Officer Record Time In 02/04/19 15:31:00 02/04/19 15:31:00 02/04/19 15:31:00 Time Out 02/04/19 16:08:00 02/04/19 16:08:00 02/04/19 16:08:00 Procedure Trigger Finger Release Trigger Finger Release Trigger Finger Release Last Modified By: Toshia Plascencia RN, Barbara RN Long, Barbara RN 02/04/19 16:16:05 02/04/19 16:16:05 02/04/19 16:16:05 Entry 4 Entry 5 Case Attendee Paloma Esparza Regina CST Role Performed Scrub Personnel Precision Assembler Time In 02/04/19 15:31:00 02/04/19 15:31:00 Time [...] Description Condition Intact Description Report Given To Jamil Garibay RN Airway Maintenance Patient Status Stable [...] Modify Pick List 02/05/19 07:40 MHBLONG Modify [facility] List [facility] Medication Managementon 01-09 Medication Management [id number]#1.00OT GTIFF [facility] Provider Orderson 02-05-2019 Provider Orders [id number]#1.00OT GTIFF [facility] Anesthesia Noteon 02-04-2019 Anesthesia Note Patient: [...] Problems Chronic back pain / SNOMED CT 851868591 / Confirmed Former smoker / SNOMED CT 80424174 / Confirmed GERD (gastroesophageal reflux disease) / SNOMED CT 517812292 / Confirmed Scar tissue / SNOMED CT 418825819 / Confirmed Sleep apnea / SNOMED CT 713297733 / Confirmed Histories Family History: No family history items have been selected or recorded. Procedure history: Tonsillectomy (042007105). Epidural injection of lumbar spine using fluoroscopic guidance (5525327387). Social History Alcohol Assessment Use: Current. Beer, [...] rhythm. Review / Management Laboratory Results Plan [place] [employer]esthesiologists#(ASA) physical status classification: Class [...] on: 02/04/2019 15:44 EDT] Alirio Mcclellan MD [facility] Inpatient Patient Summaryon 02-04-2019 Inpatient Patient Summary [address] [address] Patient Discharge Instructions Name: SHEY BOSS : 52 Patient Address: [address] [place] [id number] Primary Care Provider: Name: LATRELL JACK After you are discharged if you find you have any questions, please, call [phone] ext [phone] to speak to a nurse. Discharge Diagnosis: Trigger finger Prescription Information: If you have been given a prescription for narcotics, seek immediate medical attention if you have any difficulty breathing or any sudden status changes such as confusion and sleepiness. If you or anyone you know is experiencing suicidal thoughts, mental health, alcohol and/or drug addiction problems; contact the [facility] 30/01 Crisis Hotline -Text 4HTUC to 824896. If you received any narcotics, sedation, or [...] business decisions or sign any legal documents [facility] would like to thank you for allowing us to assist you with your healthcare needs. The following includes patient education materials and information regarding your injury/illness. SHEY BOSS has been given the following list of follow-up instructions, prescriptions, and patient education materials: Follow-up Instructions With: Address: When: Daquan Antunez [address] [place] [address], [address] [place] [address] Business (2) 02/12/2019 2:00 PM With: Address: When: LATRELL JACK [address] [place] [address] [place], [place] [id number] freee (1) Medications During the course of your [...] awake -DO NOT lift heavy objects or electric bath attendant forcefully with the affected hand -DO NOT [...] or concerns, please call the office at [phone] or go to the emergency room -Follow [...] for Disease Control and Prevention March 2014 [facility] MAGR Postoperative Recordon 02-04-2019 MAGR Postoperative Record MAGR Phase II Record Summary Primary Physician: Daquan Antunez DO Finalized Date/Time: 02/04/19 17:11:50 Pt. Name: SHEY BOSS/Sex: 1950 FEMALE Med Rec #: [id number] Physician: Daquan Antunez DO Financial #: [id number] Pt. Type: D Room/Bed: / Admit/Disch: 02/04/19 11:44:00 - 02/04/19 17:05:00 Institution: [facility] II Case Times MAGR Pre-Care Text: Patient is free from s/s of injury. Patient remains free from compromised physical state related to surgery or anesthesia. Patient comfort maintained. Patient/family verbalize understanding of discharge instructions. Entry 1 In PACU II 02/04/19 16:10:00 Discharge from PACU 02/04/19 17:05:00 II Last Modified By: Jamil Garibay RN 02/04/19 17:11:48 Post-Care Text: The patient remains free from s/s of injury. Patient's vital signs stable, circulation maintained, return to preop mental and physical status, opsite/dressing intact, minimal or absent nausea and vomiting, tolerates po intake. Patient verbalizes adequate pain control. Patient/family express understanding of discharge instructions. Finalized By: Jamil Garibay RN Document Signatures Signed By: Jamil Garibay RN 02/04/19 17:11 [facility] MAGR Preoperative Recordon 0 02-04-2019 MAGR Preoperative Record MAGR Pre-Op Record Summary Primary Physician: Daquan Antunez DO Finalized Date/Time: 02/04/19 15:37:19 Pt. Name: SHEY BOSS/Sex: 1950 FEMALE Med Rec #: [id number] Physician: Daquan Antunez DO Financial #: [id number] Pt. Type: D Room/Bed: / Admit/Disch: 02/04/19 11:44:00 - Institution: Pre-Op Case Times [facility] Pre-Care Text: Patient will be optimally prepared [...] By: Toshia Plascencia RN 02/04/19 15:37 Normal [facility] Operative Report - Surgeon/P shalini 02-04-2019 [...] on: 02/04/2019 16:37 EDT] Daquan Antunez DO [facility] Patient Handouton 02-04-[address] [place] POST OPERATIVE INSTRUCTIONS FOR FINGER SURGERY/MALLET FINGER REPAIR SURGEONS WRITTEN INSTRUTCTIONS:' -Keep your hand elevated above your elbow for the first 24 hours after surgery and apply an ice bag at intervals for the first 24 hours -Wiggle the unaffected fingers frequently while awake -DO NOT lift heavy objects or electric bath attendant forcefully with the affected hand -DO NOT [...] or concerns, please call the office at [phone] or go to the emergency room -Follow up as scheduled [facility] Progress Note - Nurserupa 01-08 Progress Note - Nurse Spoke with pt regarding arrival time of 1145 and NPO status. Verbalized understanding. 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 Verbalized understanding. [Electronically Signed on: 02/01/2019 14:53 EDT] Kika Akers RN [Verified on: 02/01/2019 14:53 EDT] Kika Akers RN [facility] Coding Summaryon 01-29-2019 Coding Summary CODING DATE: 019 [facility] STATUS: Home PAYOR: Medicare MC [...] Lili Cueto Date Saved: 01/29/2019 01:42 pm [facility] .Auto Diff 1on 01-28-2019 Auto [place] % 8 % Normal 1-12 [facility] Comment on above: Performed By: #### 7 [id number], [id number] #### [facility] (DEFAULT) [address] [place] [address] Baso Abs# 0.0 x10 Normal 0.0-0.2 [facility] Comment on above: Performed By: #### 7 [id number], [id number] #### [facility] (DEFAULT) [address] [place], [place] [id number] Basophils/100 WBC (Bld) 0.4 % Normal 0.2-2.0 [facility] Comment on above: Performed By: #### 7 [id number], [id number] #### [facility] (DEFAULT) [address] [place] [address] Eos Abs# 0.2 x10 Normal 0.0-0.4 [facility] Comment on above: Performed By: #### 7 [id number], [id number] #### [facility] (DEFAULT) [address] [place] [address] Eosinophils/100 WBC (Bld) 3.5 % Normal 0.9-4.0 [facility] Comment on above: Performed By: #### 7 [id number], [id number] #### [facility] (DEFAULT) [address] [place] [address] Lymphocytes (Bld) [#/Vol] 1.6 x10 Normal 1.3-2.9 [facility] Comment on above: Performed By: #### 7 [id number], [id number] #### [facility] (DEFAULT) [address] [place] [address] Lymphocytes/100 WBC (Bld) 32 % Normal 14-48 [facility] Comment on above: Performed By: #### 7 [id number], [id number] #### [facility] (DEFAULT) [address] [place] [address] [place] Abs# 0.4 x10 Normal 0.0-0.8 [facility] Comment on above: Performed By: #### 7 [id number], [id number] #### [facility] (DEFAULT) [address] [place] [address] Neut Abs# 2.8 x10 Normal 1.5-9.2 [facility] Comment on above: Performed By: #### 7 [id number], [id number] #### [facility] (DEFAULT) [address] [place] [address] Neutrophils/100 WBC (Bld) 56 % Normal 44-88 [facility] Comment on above: Performed By: #### 7 [id number], [id number] #### [facility] (DEFAULT) [address] [place] [address] CBC w/ Auto Diffon 9 Erythrocyte distribution width (RBC) [Ratio] 13.4 % Normal 11.5-15.0 [facility] Comment on above: Performed By: #### 7 [id number], [id number] #### [facility] (DEFAULT) [address] [place] [address] Hematocrit (Bld) [Volume fraction] 40.4 % Normal 33.7-40.4 [facility] Comment on above: Performed By: #### 7 [id number], [id number] #### [facility] (DEFAULT) [address] [place] [place] [address] Hemoglobin (Bld) [Mass/Vol] 13.9 g/dL Normal 11.3-15.9 [facility] Comment on above: Performed By: #### 7 [id number], [id number] #### [facility] (DEFAULT) [address] [place] [place] [address] Man Diff? Auto Normal [facility] Comment on above: Performed By: #### 7 [id number], [id number] #### [facility] (DEFAULT) [address] [place] [address] MCH (RBC) [Entitic mass] 31 pg Normal 24-34 [facility] Comment on above: Performed By: #### 7 [id number], [id number] #### [facility] (DEFAULT) [address] [place] [address] MCHC (RBC) [Mass/Vol] 34 g/dL Normal 26-37 [facility] Comment on above: Performed By: #### 7 [id number], [id number] #### [facility] (DEFAULT) [address] [place] [address] MCV (RBC) [Entitic vol] 90 fL Normal 81-100 [facility] Comment on above: Performed By: #### 7 [id number], [id number] #### [facility] (DEFAULT) [address] [place] [address] Platelet mean volume (Bld) [Entitic vol] 10.3 fL High 6.3-10.2 [facility] Comment on above: Performed By: #### 7 [id number], [id number] #### [facility] (DEFAULT) [address] [place] [address] Platelets (Bld) [#/Vol] 199 x10 Normal 138-427 [facility] Comment on above: Performed By: #### 7 [id number], [id number] #### [facility] (DEFAULT) [address] [place] [address] RBC (Bld) [#/Vol] 4.47 x10 Normal 3.70-5.30 [facility] Comment on above: Performed By: #### 7 [id number], [id number] #### [facility] (DEFAULT) [address] [place] [id number] WBC (Bld) [#/Vol] 5.1 x10 Normal 3.5-10.5 [facility] Comment on above: Performed By: #### [id number] #### [facility] (DEFAULT) [address] [place] [id number] Vital Signs Date Time Vital Sign Value Performing Clinician Facility 08-27-2024 10:25-0500 Body height 160 cm Latrell Jack MD Work Phone: [facility] 08-27-2024 10:25-0500 Body mass index (BMI) [Ratio] 36.14 kg/m2 Latrell Jack MD Work Phone: [facility] 08-27-2024 10:25-0500 Body temperature 95.9 [degF] Latrell Jack MD Work Phone: [facility] 08-27-2024 10:25-0500 Body weight 92.53 kg Latrell Jack MD Work Phone: [facility] 08-27-2024 10:25-0500 Diastolic blood pressure 68 mm[Hg] Latrell Jack MD Work Phone: [facility] 08-27-2024 10:25-0500 Heart rate 50 /min Latrell Jack MD Work Phone: [facility] 08-27-2024 10:25-0500 Respiratory rate 22 /min Latrell Jack MD Work Phone: [facility] 08-27-2024 10:25-0500 SaO2% (BldA) [Mass fraction] 97 % Latrell Jack MD Work Phone: [facility] 08-27-2024 10:25-0500 Systolic blood pressure 140 mm[Hg] Latrell Jack MD Work Phone: [facility] 08-07-2024 14:04-0500 Body height 162.6 cm Katarzyna Miles TRANSMISSION SUPERVISOR.COIL BUILDER Work Phone: [facility] 08-07-2024 14:04-0500 Body mass index (BMI) [Ratio] 34.84 kg/m2 Katarzyna Miles TRANSMISSION SUPERVISOR.COIL BUILDER Work Phone: [facility] 08-07-2024 14:04-0500 Body temperature 97.59 [degF] Katarzyna Miles TRANSMISSION SUPERVISOR.COIL BUILDER Work Phone: [facility] 08-07-2024 14:04-0500 Body weight 92.08 kg Katarzyna Miles TRANSMISSION SUPERVISOR.COIL BUILDER Work Phone: [facility] 08-07-2024 14:04-0500 Diastolic blood pressure 72 mm[Hg] Katarzyna Miles TRANSMISSION SUPERVISOR.COIL BUILDER Work Phone: [facility] 08-07-2024 14:04-0500 Heart rate 75 /min Katarzyna Miles TRANSMISSION SUPERVISOR.COIL BUILDER Work Phone: [facility] 08-07-2024 14:04-0500 Systolic blood pressure 151 mm[Hg] Katarznya Miles TRANSMISSION SUPERVISOR.COIL BUILDER Work Phone: [facility] 07-23-2024 12:49-0500 Body height 160 cm [facility] Work Phone: [facility] 07-23-2024 12:49-0500 Body mass index (BMI) [Ratio] 37.45 kg/m2 [facility] Work Phone: [facility] 07-23-2024 12:49-0500 Body temperature 98.01 [degF] [facility] Work Phone: [facility] 07-23-2024 12:49-0500 Body weight 95.9 kg [facility] Work Phone: [facility] 07-23-2024 12:49-0500 Diastolic blood pressure 73 mm[Hg] [facility] Work Phone: [facility] 07-23-2024 12:49-0500 Heart rate 77 /min [facility] 5 Work Phone: [facility] 07-23-2024 12:49-0500 Respiratory rate 20 /min [facility] 5 Work Phone: [facility] 07-23-2024 12:49-0500 SaO2% (BldA) [Mass fraction] 99 % [facility] 5 Work Phone: [facility] 07-23-2024 12:49-0500 Systolic blood pressure 153 mm[Hg] [facility] 5 Work Phone: [facility] 05-30-2024 15:36-0500 Body height 160 cm Sandra Arcos OTHER SPORTS OFFICIAL Work Phone: [facility] 05-30-2024 15:36-0500 Body mass index (BMI) [Ratio] 38.26 kg/m2 Sandra Umamor OTHER SPORTS OFFICIAL Work Phone: [facility] 05-30-2024 15:36-0500 Body weight 97.98 kg Sandra Gillmor OTHER SPORTS OFFICIAL Work Phone: [facility] 05-30-2024 15:36-0500 Diastolic blood pressure 82 mm[Hg] Sandra Gillmor OTHER SPORTS OFFICIAL Work Phone: [facility] 05-30-2024 15:36-0500 Systolic blood pressure 138 mm[Hg] Sandra Umamor OTHER SPORTS OFFICIAL Work Phone: [facility] 05-15-2024 10:02-0500 Body height 160 cm Latrell Jack MD Work Phone: [facility] 05-15-2024 10:02-0500 Body mass index (BMI) [Ratio] 38.26 kg/m2 Latrell Jack MD Work Phone: [facility] 05-15-2024 10:02-0500 Body temperature 97.11 [degF] Latrell Jack MD Work Phone: [facility] 05-15-2024 10:02-0500 Body weight 97.98 kg Latrell [...] 10:02-0500 Systolic blood pressure 148 mm[Hg] Latrell Jcak MD Work Phone: [facility] 04-29-2024 10:55-0400 Body height 152.4 cm Xavier Boyd MD Work Phone: [facility] 04-29-2024 10:55-0400 Body mass index (BMI) [Ratio] 42.58 kg/m2 Xavier Boyd MD Work Phone: [facility] 04-29-2024 10:55-0400 Body temperature 98.49 [degF] Xavier Boyd MD Work Phone: [facility] 04-29-2024 10:55-0400 Body weight 98.88 kg Xavier Boyd MD Work Phone: [facility] 04-29-2024 10:55-0400 Diastolic blood pressure 65 mm[Hg] Xavier Boyd MD Work Phone: [facility] 04-29-2024 10:55-0400 Heart rate 90 /min Xavier Boyd MD Work Phone: [facility] 04-29-2024 10:55-0400 Systolic blood pressure 144 mm[Hg] Xavier Boyd MD Work Phone: [facility] 03-20-2024 13:23-0400 Diastolic blood pressure 81 mm[Hg] Leos Sarmini [facility] 03-20-2024 13:23-0400 Heart rate 66 /min Leos Sarmini [facility] 03-20-2024 13:23-0400 Mean blood pressure 112 mm[Hg] Leos Sarmini [facility] 03-20-2024 13:23-0400 Respiratory rate 15 /min Leos Sarmini [facility] 03-20-2024 13:23-0400 SaO2% (BldA) [Mass fraction] 94 % Leos Sarmini [facility] 03-20-2024 13:23-0400 Systolic blood pressure 173 mm[Hg] Leos Sarmini [facility] 03-20-2024 13:15-0400 Diastolic blood pressure 78 mm[Hg] Leos Sarmini [facility] 03-20-2024 13:15-0400 Heart rate 64 /min Leos Sarmini [facility] 03-20-2024 13:15-0400 Mean blood pressure 105 mm[Hg] Leos Sarmini [facility] 03-20-2024 13:15-0400 Respiratory rate 13 /min Leos Sarmini [facility] 03-20-2024 13:15-0400 SaO2% (BldA) [Mass fraction] 96 % Leos Sarmini [facility] 03-20-2024 13:15-0400 Systolic blood pressure 159 mm[Hg] Leos Sarmini [facility] 03-20-2024 13:05-0400 Diastolic blood pressure 76 mm[Hg] Leos Sarmini [facility] 03-20-2024 13:05-0400 Heart rate 64 /min Leos Sarmini [facility] 03-20-2024 13:05-0400 Mean blood pressure 99 mm[Hg] Leos Sarmini [facility] 03-20-2024 13:05-0400 Respiratory rate 12 /min Leos Sarmini [facility] 03-20-2024 13:05-0400 SaO2% (BldA) [Mass fraction] 96 % Leos Sarmini [facility] 03-20-2024 13:05-0400 Systolic blood pressure 145 mm[Hg] Leos Sarmini [facility] 03-20-2024 12:58-0400 Body temperature 97.16 [degF] Leos Sarmini [facility] 03-20-2024 12:50-0400 Respiratory rate 15 /min Leos Sarmini [facility] 03-20-2024 12:45-0400 Respiratory rate 18 /min Leos Sarmini [facility] 03-20-2024 11:14-0400 Blood Pressure Location Leos Sarmini [facility] 03-20-2024 11:14-0400 Body temperature 97.7 [degF] Leos Sarmini [facility] 03-20-2024 11:14-0400 Respiratory rate 18 /min Leos Sarmini [facility] 03-07-2024 11:21-0400 Body height 160 cm Diomedes Amilcar DO Work Phone: [facility] 03-07-2024 11:21-0400 Body mass index (BMI) [Ratio] 44.46 kg/m2 Diomedes Amilcar DO Work Phone: [facility] 03-07-2024 11:21-0400 Body weight 113.85 kg Diomedes Amilcar DO Work Phone: [facility] 03-07-2024 11:21-0400 Diastolic blood pressure 88 mm[Hg] Diomedes Amilcar DO Work Phone: [facility] 03-07-2024 11:21-0400 Heart rate 84 /min Diomedes Amilcar DO Work Phone: [facility] 03-07-2024 11:21-0400 SaO2% (BldA) [Mass fraction] 94 % Diomedes Amilcar DO Work Phone: [facility] 03-07-2024 11:21-0400 Systolic blood pressure 146 mm[Hg] Diomedes Amilcar DO Work Phone: [facility] 02-26-2024 09:12-0400 Blood Pressure Location Leos Sarmini [facility] 02-26-2024 09:12-0400 Diastolic blood pressure 81 mm[Hg] Leos Sarmini [facility] 02-26-2024 09:12-0400 Heart rate 66 /min Leos Sarmini [facility] 02-26-2024 09:12-0400 Respiratory rate 16 /min Leos Sarmini [facility] 02-26-2024 09:12-0400 Systolic blood pressure 131 mm[Hg] Dafne Spears [facility] 10-13-2023 09:42-0400 Diastolic blood pressure 80 mm[Hg] Pa NILL [facility] 10-13-2023 09:42-0400 Heart rate 69 /min Pa NILL [facility] 10-13-2023 09:42-0400 Mean blood pressure 102 mm[Hg] Pa NILL [facility] 10-13-2023 09:42-0400 Respiratory rate 15 /min Pa NILL [facility] 10-13-2023 09:42-0400 SaO2% (BldA) [Mass fraction] 97 % Pa NILL [facility] 10-13-2023 09:42-0400 Systolic blood pressure 146 mm[Hg] Pa NILL [facility] 10-13-2023 09:32-0400 Diastolic blood pressure 76 mm[Hg] Pa NILL [facility] 10-13-2023 09:32-0400 Heart rate 67 /min Pa NILL [facility] 10-13-2023 09:32-0400 Mean blood pressure 94 mm[Hg] Pa NILL [facility] 10-13-2023 09:32-0400 Respiratory rate 20 /min Pa NILL [facility] 10-13-2023 09:32-0400 SaO2% (BldA) [Mass fraction] 95 % Pa NILL [facility] 10-13-2023 09:32-0400 Systolic blood pressure 129 mm[Hg] Pa NILL [facility] 10-13-2023 09:27-0400 Diastolic blood pressure 71 mm[Hg] Pa NILL [facility] 10-13-2023 09:27-0400 Heart rate 70 /min Pa NILL [facility] 10-13-2023 09:27-0400 Mean blood pressure 92 mm[Hg] Pa NILL [facility] 10-13-2023 09:27-0400 Respiratory rate 15 /min Pa NILL [facility] 10-13-2023 09:27-0400 SaO2% (BldA) [Mass fraction] 96 % Pa NILL [facility] 10-13-2023 09:27-0400 Systolic blood pressure 134 mm[Hg] Pa PALMERL [facility] 10-13-2023 09:17-0400 Body temperature 97.16 [degF] Pa NILL [facility] 10-13-2023 09:10-0400 Respiratory rate 16 /min Pa NILL [facility] 10-13-2023 09:05-0400 Respiratory rate 16 /min Pa NILL [facility] 10-13-2023 08:03-0400 Body temperature 97.34 [degF] Pa NILL [facility] 08-11-2023 09:53-0500 Body height 160 cm Latrell [...] [facility] 08-11-2023 09:53-0500 Systolic blood pressure 140 mm[Hg] Latrell Jack MD Work Phone: [facility] Healthcare Encounters Encounter Date Encounter Type Care Provider Facility Start: 08-27-2024 End: 08-27-2024 Bamboo flowsheet Latrell Jack MD Work Phone: [facility] Start: 08-27-2024 End: 08-27-2024 Bamboo flowsheet Latrell Jack MD Work Phone: [facility] Start: 08-27-2024 End: 08-27-2024 Clinisync Result Encounter Latrell Jack MD Work Phone: [facility] External Department Unsolicited Start: 08-27-2024 End: 08-27-2024 ambulatory LATRELL JACK Not Available Start: 08-27-2024 End: 08-27-2024 Patient encounter procedure Latrell Jack MD Work Phone: [facility] Healthcare Work Phone: Start: 08-27-2024 End: 08-27-2024 Postop follow up visit related to original px Latrell Jack MD Work Phone: [facility] Comment on above: Medicare annual well ness visit, subsequent (Primary Dx); Prediabetes; Dyslipidemia ([facility]); Encounter for long-term (current) use of medications; Essential hypertension, benign ([facility]/HCC); Class 2 severe obesity due to excess calories with serious comorbidity and body mass index (BMI) of 36.0 to 36.9 in adult ([facility]); Chronic obstructive pulmonary disease, unspecified COPD type ([facility]/HCC); 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[facility]) Start: 08-07-2024 End: 08-07-2024 Patient encounter procedure Katarzyna Snyder TRANSMISSION SUPERVISOR.COIL BUILDER Work Phone: General Surgery Comment on above: Postoperative visit (Primary Dx) Start: 08-07-2024 End: 08-07-2024 ambulatory KATARZYNA SNYDER Facility:[facility] Start: 07-31-2024 End: 07-31-2024 Telephone encounter Latrell Jack MD Work Phone: [facility] Start: 07-30-2024 End: 07-30-2024 Refill Latrell Jack MD Work Phone: [facility] Comment on above: Primary insomnia Start: 07-24-2024 End: 07-26-2024 Evaluation and management of inpatient XAVIER BOYD Facility:[facility] Start: 07-23-2024 End: 07-23-2024 ambulatory LATRELL JACK Facility:[facility] Start: 07-23-2024 End: 07-23-2024 Clinisync Result Encounter Generic External Data Provider [facility] External Department Unsolicited Start: 07-23-2024 End: 07-23-2024 Clinisync Result Encounter Generic External Data Provider [facility] External Department Unsolicited Start: 07-23-2024 End: 07-23-2024 Subsequent hospital visit by physician Xr Chest Main A[facility] Radiology Comment on above: Pre-op evaluation [Z 01.818] Start: 07-23-2024 End: 07-23-2024 Admission to establishment [facility] Work Phone: Pre Anesthesia Start: 07-23-2024 End: 07-23-2024 Anesthesia consultation [facility] Main 5 Work Phone: Pre Anesthesia Comment on above: Pre-op evaluation (P rimary Dx); Preoperative examination; Paraesophageal hernia; Chronic obstructive pulmonary disease, unspecified COPD type (HCC); CHENEY (dyspnea on exertion); Former smoker; EDWIN (obstructive sleep apnea); Hypertension, unspecified type; Gastroesophageal reflux disease, unspecified whether esophagitis present; Dyslipidemia; TIA (transient ischemic attack); Abnormal MRI of head; Memory loss; Chronic back pain, unspecified back location, unspecified back pain laterality; Primary insomnia Start: 07-23-2024 End: 07-23-2024 Preprocedural examination done [place] [id number] Work Phone: [facility] Work Phone: Start: 07-23-2024 End: 07-23-2024 ambulatory LATRELL JACK Facility:[facility] Start: 07-23-2024 Encounter for other preprocedural examination LATRELL JACK [facility] Start: 06-29-2024 End: 07-15-2024 Telephone encounter Sandra Arcos NP Work Phone: [facility] [address] Start: 06-24-2024 End: 06-24-2024 ambulatory Talat Arguello MD Facility[facility] Start: 06-13-2024 End: 06-13-2024 Telephone encounter Latrell Jack MD Work Phone: [facility] Comment on above: Medication Question Start: 06-10-2024 End: 06-10-2024 ambulatory Talat Arguello MD [facility] Start: 05-30-2024 End: 05-30-2024 Office outpatient visit 25 minutes Sandra Arcos NP Work Phone: [facility] [address] Comment on above: Memory loss (Primary Dx); Severe episode of recurrent major depressive disorder, 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); Generalized anxiety disorder (CMS/HCC); EDWIN on CPAP; Other chronic pain; Other insomnia Start: 05-30-2024 End: 05-30-2024 ambulatory SANDRA ARCOS Not Available Start: 05-30-2024 End: 05-30-2024 Bamboo flowsheet Sandra Arcos OTHER SPORTS OFFICIAL Work Phone: [facility] Start: 05-30-2024 End: 05-30-2024 Bamboo flowsheet Sandra Arcos OTHER SPORTS OFFICIAL Work Phone: [facility] Start: 05-27-2024 End: 05-27-2024 ambulatory Talat Arguello MD Facility:[facility] Start: 05-15-2024 End: 05-15-2024 Office outpatient visit 25 minutes Latrell Jack MD Work Phone: [facility] Comment on above: Essential hypertensi on, benign [...] 05-06-2024 End: 05-06-2024 ambulatory Talat Arguello MD Facility:[facility] Start: 05-04-2024 End: 05-06-2024 ambulatory Xavier Boyd MD Work Phone: [facility] Comment on above: 07.24.24 Cure (Lap P araesophageal Hernia Repair/EGD 4 hours los 1) Start: 05-04-2024 End: 05-06-2024 Preprocedural examination done Xavier Boyd MD Work Phone: [facility] Start: 04-29-2024 End: 04-29-2024 ambulatory DAFNE SPEARS Facility:[facility] Start: 04-29-2024 End: 04-29-2024 Office outpatient new 45 minutes Xavier Boyd MD Work Phone: General Surgery Comment on above: Paraesophageal herni a (Primary Dx) Start: 04-22-2024 End: 04-22-2024 Telephone encounter Ashlie Calderon MA General Surgery Start: 04-15-2024 End: 04-15-2024 ambulatory Talat Arguello MD Facility:[facility] Start: 04-11-2024 End: 04-11-2024 Patient encounter procedure Mao Morrow PhD Work Phone: [facility] Comment on above: Memory loss (Primary Dx); Word finding difficulty; EDWIN on CPAP; Other insomnia; Other chronic pain; Generalized anxiety disorder (CMS/HCC); Severe episode of recurrent major depressive disorder, 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) Start: 04-11-2024 End: 04-11-2024 ambulatory LATRELL JACK Not Available Start: 03-26-2024 End: 03-26-2024 Patient encounter procedure Mao Morrow PhD Work Phone: [facility] Comment on above: Memory loss (Primary Dx); Word finding difficulty; EDWIN on CPAP; Other insomnia; Other chronic pain; Generalized anxiety disorder (CMS/HCC) Start: 03-26-2024 End: 03-26-2024 ambulatory MAO MORROW Not Available Start: 03-26-2024 End: 03-26-2024 Bamboo flowskevin Morrow PhD Work Phone: [facility] Start: 03-26-2024 End: 03-26-2024 Bamboo flowsheet Mao Morrow PhD Work Phone: [facility] Start: 03-26-2024 End: 03-26-2024 ambulatory Dafne Spears Facility:[facility] Start: 03-26-2024 End: 03-26-2024 Patient encounter procedure Dafne Spears [facility] Start: 03-25-2024 End: 03-25-2024 ambulatory DIOMEDES FITZGERALD Not Available Start: 03-20-2024 End: 03-20-2024 ambulatory Dafne Houmini Facility:[facility] Start: 03-20-2024 End: 03-20-2024 Patient encounter procedure Dafne Flowersi [facility] Start: 03-07-2024 End: 03-07-2024 Bamboo flowsheet Diomedes Fitzgerald DO Work Phone: [employer] [address] Start: 03-07-2024 End: 03-07-2024 Bamboo flowsheet Diomedes Fitzgerald DO Work Phone: [employer] [facility] Start: 03-07-2024 End: 03-07-2024 Clinisync Result Encounter Diomedes Fitzgerald DO Work Phone: [facility] External Department Unsolicited Start: 03-07-2024 End: 03-07-2024 Office outpatient visit 40 minutes Diomedes Fitzgerald DO Work Phone: [employer] [facility] Comment on above: Memory loss (Primary Dx); 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CMS/HCC); Mild cognitive impairment; EDWIN (obstructive sleep apnea) Start: 03-07-2024 End: 03-07-2024 ambulatory DIOMEDES FITZGERALD Not Available Start: 02-26-2024 End: 02-26-2024 ambulatory Dafne Spears Facility:[facility] Start: 02-26-2024 End: 02-26-2024 Patient encounter procedure Dafne Flowersi [facility] Start: 02-13-2024 ambulatory Pa WEBB [facility] Start: 02-09-2024 End: 02-09-2024 ambulatory LATRELL JACK Not Available Start: 10-13-2023 End: 10-13-2023 ambulatory Pa WEBB Facility:[facility] Start: 10-13-2023 End: 04-05-2024 Patient encounter procedure Pa WEBB [facility] Start: 09-12-2023 End: 09-12-2023 ambulatory Pa WEBB [facility] Start: 09-05-2023 ambulatory Pa WEBB Facility:[facility] Start: 08-11-2023 Bamboo flowsheet Latrell Jack [...] mass index [BMI] 40.0-44.9, adult (Z68.41) Start: 07-28-2022 End: 07-29-[address] LATRELL JACK Facility:[facility] Start: 02-22-2022 End: 02-22-[address] SHANKAR DANIEL Facility:[facility] Start: 11-11-2021 End: 11-12-[address] LATRELL JACK Facility:[facility] Start: 11-02-2021 End: 11-02-[address] SHANKAR DANIEL Facility:[facility] Start: 09-10-2021 End: 09-10-[address] WILLARD ANAND Facility:[facility] Start: 09-09-2021 Encounter for preprocedural laboratory examination MARNIE PEMBERTON [facility] Start: 09-07-2021 End: 09-07-[address] LATRELL JACK Facility:[facility] Start: 09-07-2021 End: 09-07-2021 Encounter for preprocedural laboratory examination DR LATRELL JACK Facility:[facility] Start: 09-03-2021 Encounter for preprocedural cardiovascular examination MARNIE PEMBERTON [facility] Start: 09-02-2021 End: 09-03-[address] LATRELL JACK Facility:[facility] Start: 09-02-2021 End: 09-03-2021 Encounter for preprocedural cardiovascular examination DR LATRELL JACK Facility:[facility] Procedures Date Procedure Procedure Detail Performing Clinician Start: 08-27-2024 ALL CBC WITH AUTO DIFF Latrell Jack MD Work Phone: Start: 07-23-2024 Antibody screen LATRELL JACK Comment on above: Order Comment: Specimen Type: BLOOD SPEC IMEN Ordering Facility: [facility] Address: [address] [place] [address] Performed By: #### 2 [id number], HSTNT, 25580-8, [id number] #### [facility] CLIA [id number] [address] [place] [address] OF JENNIFER Start: 07-23-2024 [facility] CBC W AUTO DIFF BLD Generic External Data Provider Start: 03-20-2024 Esophagogastroduodenoscopy Dafne george Start: 03-07-2024 ALL FOLIC ACID Diomedes Amilcar DO Work Phone: Start: 03-07-2024 ALL THYROID STIM HORMONE Diomedes Fitzgerald D O Work Phone: Start: 11-28-2023 Mammography Diomedes Amilcar DO Work Phone: Start: 10-13-2023 Colonoscopy Diomedes Amilcar DO Work Phone: Start: 10-13-2023 Colonoscopy Pa WEBB Hand tendon repaired Pa WEBB Open reduction of fr acture of ankle with internal fixation Pa WEBB Repair of meniscus Pa MORALES Tonsillectomy Pa WEBB Plan of Treatment Date Care Activity Detail Author Start: 10-12-2033 Screening for malign ant neoplasm of colon [facility] Start: 07-26-2027 Diabetes Screening Diabetes Screenin ravin [facility] Start: 07-23-2027 Diabetes Screening Diabetes Screenin ravin [facility] Start: 09-21-2026 RSV Vaccine (1 - 1-d ose 75+ series) RSV Vaccine (1 - 1-dose 75+ series) [facility] Start: 08-07-2025 End: 09-06-2025 CT Chest WO contrast CT CHEST WO IVCON Radiology Routine Postoperative visit Expected: 08/07/2025, Expires: 09/06/2025 [facility] Work Phone: Comment on above: Expected: 08/07/2025 , Expires: 09/06/2025 Start: 02-24-2025 End: 02-24-2025 Patient encounter procedure 02/24/2025 10:30 AM EDT Office Visit [facility] [address] [place] [address] Latrell Jack MD [address] [place] [address] [facility] Start: 11-27-2024 Screening for malign ant neoplasm of breast Mammogram [facility] Start: 09-26-2024 End: 09-26-2024 Patient encounter procedure [facility] [address] Start: 08-27-2024 End: 08-27-2025 Basic metabolic 1998 panel - Serum or Plasma Basic metabolic panel Lab Routine Essential hypertension, benign (CMS/HCC) Expected: 08/27/2024 (Approximate), Expires: 08/27/2025 [facility] Comment on above: Expected: 08/27/2024 (Approximate), Expires: 08/27/2025 Start: 08-27-2024 End: 08-27-2025 CBC W Auto Differential panel - Blood CBC and differential Lab Routine Encounter for long-term (current) use of medications Expected: 08/27/2024 (Approximate), Expires: 08/27/2025 [facility] Comment on above: Expected: 08/27/2024 (Approximate), Expires: 08/27/2025 Start: 08-27-2024 End: 08-27-2025 Hemoglobin A1c/Hemoglobin.total in Blood Hemoglobin A1c Lab Routine Prediabetes Expected: 08/27/2024 (Approximate), Expires: 08/27/2025 [facility] Work Phone: Comment on above: Expected: 08/27/2024 (Approximate), Expires: 08/27/2025 Start: 08-27-2024 End: 08-27-2025 Hepatic function 2000 panel - Serum or Plasma Hepatic function panel Lab Routine Encounter for long-term (current) use of medications Expected: 08/27/2024 (Approximate), Expires: 08/27/2025 [facility] Comment on above: Expected: 08/27/2024 (Approximate), Expires: 08/27/2025 Start: 08-27-2024 End: 08-27-2025 Lipid 1996 panel - Serum or Plasma Lipid panel Lab Routine Dyslipidemia (CMS/HCC) Expected: 08/27/2024 (Approximate), Expires: 08/27/2025 [facility] Comment on above: Expected: 08/27/2024 (Approximate), Expires: 08/27/2025 Start: 08-27-2024 End: 08-27-2025 Thyrotropin [Units/volume] in Serum or Plasma TSH Lab Routine Class 2 severe obesity due to excess calories with serious comorbidity and body mass index (BMI) of 36.0 to 36.9 in adult (CMS/HCC) Expected: 08/27/2024 (Approximate), Expires: 08/27/2025 [facility] Comment on above: Expected: 08/27/2024 (Approximate), Expires: 08/27/2025 Start: 08-16-2024 End: 08-16-2024 Patient encounter procedure 08/16/2024 9:00 AM EST Office Visit [facility] [address] [place] [address] Latrell Jack MD [address] [place] [phone] [facility] Start: 07-24-2024 End: 07-24-2024 Admission to same day surgery center 07/24/2024 10:51 AM EST - 07/24/2024 3:42 PM EST Surgery Admitting [address] [place] [address] Xavier Boyd MD [address] [place] [address] LAPAROSCOPIC RPR PARAESOPHAGEAL HERNIA W/O FUNDOPLASTY W/ MESH Admitting Comment on above: LAPAROSCOPIC RPR PAR AESOPHAGEAL HERNIA W/O FUNDOPLASTY W/ MESH Start: 07-24-2024 End: 07-24-2024 Laps rpr paraesphgl hrna incl fundplsty w/mesh LAPAROSCOPIC RPR PARAESOPHAGEAL HERNIA W/O FUNDOPLASTY W/ MESH Preoperative examination Paraesophageal hernia 07/24/2024 10:51 AM EST [facility] Start: 07-24-2024 Subsequent hospital visit by physician Admitting Comment on above: Preoperative examina tion [Z01.818], Paraesophageal hernia [K44.9] Start: 07-10-2024 Advance Directive Discussion Advance Directive Discussion [facility] Start: 06-29-2024 End: 10-29-2024 aPTT in Platelet poor plasma by Coagulation assay ACTIVATED PARTIAL THROMBOPLASTIN TIME Lab Routine Preoperative examination Paraesophageal hernia Abnormal coagulation profile Expected: 06/29/2024, Expires: 10/29/2024 [facility] Comment on above: Expected: 06/29/2024 , Expires: 10/29/2024 Start: 06-29-2024 End: 10-29-2024 CBC W Auto Differential panel - Blood COMPLETE BLOOD COUNT AND DIFFERENTIAL Lab Routine Preoperative examination Paraesophageal hernia Expected: 06/29/2024, Expires: 10/29/2024 [facility] Comment on above: Expected: 06/29/2024 , Expires: 10/29/2024 Start: 06-29-2024 End: 10-29-2024 Comprehensive metabolic 2000 panel - Serum or Plasma COMPREHENSIVE METABOLIC PANEL Lab Routine Preoperative examination Paraesophageal hernia Expected: 06/29/2024, Expires: 10/29/2024 [facility] Comment on above: Expected: 06/29/2024 , Expires: 10/29/2024 Start: 06-29-2024 End: 10-29-2024 PT panel - Platelet poor plasma by Coagulation assay PROTHROMBIN TIME Lab Routine Preoperative examination Paraesophageal hernia Abnormal results of liver function studies Expected: 06/29/2024, Expires: 10/29/2024 [facility] Comment on above: Expected: 06/29/2024 , Expires: 10/29/2024 Start: 06-29-2024 End: 10-29-2024 TYPE AND SCREEN,30 DAY TYPE AND SCREEN,30 DAY Blood Bank Routine Preoperative examination Paraesophageal hernia Expected: 06/29/2024, Expires: 10/29/2024 [facility] Comment on above: Expected: 06/29/2024 , Expires: 10/29/2024 Start: 05-30-2024 End: 05-30-2024 Patient encounter procedure [facility] [place] [facility] Comment on above: Arrived Start: 05-15-2024 End: 05-15-2024 Patient encounter procedure 05/15/2024 10:00 AM EST Office Visit [facility] [address] [place] [address] Latrell Jack MD [address] [place] [address] [facility] Start: 04-29-2024 End: 04-29-2024 Patient encounter procedure 04/29/2024 11:00 AM EDT Office Visit General Surgery [address] [address] Xavier Boyd MD [address] [place] [address] Hiatal Hernia General Surgery Comment on above: Hiatal Hernia Start: 04-11-2024 End: 04-11-2024 Patient encounter procedure 04/11/2024 9:00 AM EDT Office Visit [facility] [address] [phone] [facility] Start: 03-26-2024 End: 03-26-2024 Patient encounter procedure 03/26/2024 2:30 PM EDT Office Visit [facility] [address] [address] [place] [phone] Mao Morrow, PhD [address] [place], [place] [phone] Arrived [facility] Comment on above: Arrived Start: 03-25-2024 End: 03-25-2024 Professional / ancillary services management 03/25/2024 8:45 AM EDT Ancillary Procedure [facility] [place] [place] [address] [facility] Start: 03-19-2024 End: 03-19-2024 Patient encounter procedure 03/19/2024 2:00 PM EDT Office Visit [facility] [address] [address] [place] [phone] Mao Morrow, PhD [address] [place] [address] [facility] Start: 03-10-2024 Covid-19 Vaccine ( season) Covid-19 Vaccine ( season) [facility] Start: 03-10-2024 Covid-19 Vaccine ( season) Covid-19 Vaccine ( season) [facility] Start: 03-10-2024 Influenza vaccination Influenza Vacc ine (#1) [facility] Start: 03-07-2024 End: 03-07-2025 Cobalamin (Vitamin B12) [Mass/volume] in Serum or Plasma Vitamin B12 Lab Routine Memory loss Expected: 03/07/2024 (Approximate), Expires: 03/07/2025 [facility] Comment on above: Expected: 03/07/2024 (Approximate), Expires: 03/07/2025 Start: 03-07-2024 End: 03-07-2025 EEG awake or drowsy EEG awake or drowsy Neurology Routine Memory loss Expected: 03/07/2024 (Approximate), Expires: 03/07/2025 [facility] Work Phone: Comment on above: Expected: 03/07/2024 (Approximate), Expires: 03/07/2025 Start: 03-07-2024 End: 03-07-2025 Folate [Mass/volume] in Serum or Plasma Folate Lab Routine Memory loss Expected: 03/07/2024 (Approximate), Expires: 03/07/2025 [facility] Comment on above: Expected: 03/07/2024 (Approximate), Expires: 03/07/2025 Start: 03-07-2024 End: 03-07-2025 MR Brain WO contrast MR brain wo contrast Imaging Routine Memory loss Expected: 03/07/2024, Expires: 03/07/2025 [facility] Comment on above: Expected: 03/07/2024 , Expires: 03/07/2025 Start: 03-07-2024 End: 03-07-2025 Thyrotropin [Units/volume] in Serum or Plasma TSH Lab Routine Memory loss Expected: 03/07/2024 (Approximate), Expires: 03/07/2025 [facility] Comment on above: Expected: 03/07/2024 (Approximate), Expires: 03/07/2025 Start: 03-07-2024 End: 03-07-2024 Patient encounter procedure 03/07/2024 11:30 AM EDT Office Visit [facility] [place] [address] [place] [phone] Diomedes Fitzgerald DO [address] [place] [address] [address] [place] [address] 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CMS/HCC) [facility] [address] Comment on above: 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CMS /HCC) Start: 02-09-2024 End: 02-09-2024 Patient encounter procedure 02/09/2024 9:45 AM EDT Office Visit [facility] [address] [place] [address] Latrell Jack MD [address] [place] [address] [facility] Start: 08-11-2023 End: 08-11-2024 [...] 9:45 AM EST Office Visit [facility] [address] [place] [phone] Latrell Jack MD [address] [place] [phone] Arrived [facility] Comment on above: Arrived Start: 07-10-2023 Advance Directive Discussion Advance Directive Discussion [facility] Start: 03-10-2023 Influenza vaccination Influenza Vacc ine (#1) [facility] Start: 09-21-2016 Screening for osteoporosis Bone Density Screening [facility] Start: 09-21-2001 Shingrix Vaccine (1 of 2) Shingrix Vaccine (1 of 2) [facility] Start: 09-21-1996 Diabetes Screening Diabetes Screenin g [facility] Start: 09-21-1996 Lipid panel Lipid Screening [facility] Start: 09-21-1996 Screening for malign ant neoplasm of colon [facility] Start: 1991 Screening for malign ant neoplasm of breast [facility] Start: 09-21-1981 Zoledronic acid therapy Alpha- 1 Antitrypsin Deficiency Screening [facility] Start: 09-21-1970 Urine microalbumin profile DTaP,Tdap,Td Vaccine (1 - Tdap) [facility] Start: 09-21-1969 Annual PCP Team [employer] julio Disease Visit Annual PCP Team Chronic Disease Visit [facility] Start: 09-21-1969 Anxiety Screening Anxiety Screening [facility] Start: 09-21-1969 BP Controlled (<130/80) BP Controlle d (<130/80) [facility] Start: 09-21-1969 Depression Screening Depression Scre ening [facility] Start: 09-21-1969 Hepatitis C screening Hepatitis C Sc reening [facility] Start: 09-21-1969 Spirometry Spirometry [facility] Start: 1950 Medicare Annual Well ness (AWV) Medicare Annual Wellness (AWV) [facility] Start: 1950 Screening for malign ant neoplasm of colon [facility] End: 05-04-2025 ECG COMPLETE ECG COMPLETE ECG Routine Preoperative examination Paraesophageal hernia 1 Occurrences starting 05/06/2024 until 05/04/2025 [facility] Comment on above: 1 Occurrences starti ng 05/06/2024 until 05/04/2025 Laps rpr paraesphgl hrna incl fundplsty w/mesh LAPAROSCOPIC RPR PARAESOPHAGEAL HERNIA W/O FUNDOPLASTY W/ MESH Preoperative examination Paraesophageal hernia [facility] REFER FOR ADMIT INTERVIEW REFER FOR ADMIT INTERVIEW Procedures Routine Preoperative examination Paraesophageal hernia Ordered: 05/06/2024 [facility] Work Phone: Comment on above: Ordered: 05/06/2024 End: 08-23-2025 XR Chest PA and Lateral XR CHEST 2V FRONTAL/LAT Radiology Routine Pre-op evaluation Chronic obstructive pulmonary disease, unspecified COPD type (HCC) CHENEY (dyspnea on exertion) 1 Occurrences starting 07/23/2024 until 08/23/2025 [facility] Work Phone: Comment on above: 1 Occurrences starti ng 07/23/2024 until 08/23/2025 XR Chest PA and Lateral XR CHEST 2V FRONTAL/LAT Radiology Routine Pre-op evaluation Chronic obstructive pulmonary disease, unspecified COPD type (HCC) CHENEY (dyspnea on exertion) 07/23/2024 1:58 PM EST [facility] Immunizations Immunization Date Immunization Notes Care Provider Fa cility 04-09-2023 influenza virus vacc ine, unspecified formulation Pa WEBB [facility] [place] 05-03-2022 SARS-CoV-2 (COVID-19 ) [id number] Pa WEBB [facility] [place] 05-03-2022 influenza virus vacc ine, unspecified formulation Latrell Jack MD Work Phone: [facility] 11-25-2021 pneumococcal conjuga te vaccine, 13 valent Diomedes Fitzgerald DO Work Phone: [facility] 04-12-2021 influenza virus vacc ine, unspecified formulation Leos Sarmini [facility] 04-12-2021 SARS-CoV-2 (COVID-19 ) mRNA BNT-162b2 vax Pa NILL [facility] Comment on above: Result Comment: 2023: [id number] 09-14-2020 SARS-CoV-2 (COVID-19 ) mRNA BNT-162b2 vax Pa NILL [facility] Comment on above: Result Comment: 2023: [id number] 08-27-2020 SARS-CoV-2 (COVID-19 ) mRNA BNT-162w4 vax Pa NILL [facility] Comment on above: Result Comment: 2023: [id number] 06-16-2020 influenza virus vacc ine, unspecified formulation Leos Sarmini [facility] 05-16-2019 influenza virus vacc ine, unspecified formulation Leos Sarmini [facility] 05-16-2019 pneumococcal polysaccharide vaccine, 23 valent Leos Sarmini [facility] 05-12-2018 influenza virus vacc ine, unspecified formulation Leos Sarmini [facility] 01-31-2018 pneumococcal conjuga te vaccine, 13 valent Leos Sarmini [facility] 05-10-2016 influenza virus vacc ine, unspecified formulation Leos Sarmini [facility] 04-16-2015 influenza virus vacc ine, unspecified formulation Leos Sarmini [facility] Payers Date Payer Category Payer Private Health Insurance [id number] 2016 Medicare [id number] 2016 Unknown 1958 Medicare [id number] 1959 Private Health Insurance [id number] 1951 Unknown [id number] 2.16.84 0.1.247853.3.579.2.593 1951 Unknown [id number] 2.16.84 0.1.491947.3.579.2.593 1951 Unknown [id number] 2.16.84 0.1.844213.3.579.2.593 1951 Unknown [id number] 2.16.84 0.1.599397.3.579.2.593 1951 Unknown [id number] 2.16.84 0.1.270803.3.579.2.593 1951 Unknown [id number] 2.16.84 0.1.510680.3.579.2.593 1951 Unknown [id number] 2.16.84 0.1.628916.3.579.2.593 1951 Unknown [id number] 2.16.8 40.1.065819.3.579.2.727 1951 Unknown [id number] 2.16.8 40.1.376783.3.579.2.727 1951 Unknown [id number] 2.16.8 40.1.196418.3.579.2.727 1951 Unknown [id number] 2.16.8 40.1.752547.3.579.2.727 1951 Unknown [id number] 2.16.8 40.1.416786.3.579.2.727 1951 Unknown [id number] 2.16. 840.1.241926.3.579.2.196 1951 Unknown [id number] 2.16. 840.1.964278.3.579.2.196 1951 Unknown [id number] 2.16. 840.1.932237.3.579.2.196 1951 Unknown [id number] 2.16. 840.1.525172.3.579.2.196 1951 Unknown [id number] 2.16. 840.1.088221.3.579.2.196 1951 Unknown [id number] 2.16.84 0.1.960023.3.579.2.1259 1951 Unknown [id number] 2.16.84 0.1.367740.3.579.2.1259 1951 Unknown [id number] 2.16.84 0.1.084095.3.579.2.1259 1951 Unknown [id number] 2.16.84 0.1.984611.3.579.2.1259 1951 Unknown [id number] 2.16.84 0.1.534440.3.579.2.1259 1951 Unknown [id number] 2.16.84 0.1.137742.3.579.2.1259 1951 Unknown [id number] 2.16.84 0.1.868927.3.579.2.1259 1951 Unknown [id number] 2.16.84 0.1.800417.3.579.2.1259 Social History Date Type Detail Facility Start: 08-05-2023 End: 05-30-2024 Tobacco smoking status [facility] Ex-smoker [facility] Start: 07-10-1967 End: 01-08-2012 History of tobacco use Current smoker [facility] Start: 07-10-1967 End: 01-08-2012 History of tobacco use Cigarette Smoker [facility] Start: 08-05-2023 End: 02-02-2024 Cigarettes smoked current (pack per day) - Reported 1 [facility] Start: 08-05-2023 End: 02-02-2024 Tobacco use panel [facility] Start: 1950 Sex Assigned At Not on file N [facility] Start: 08-11-2023 End: 05-30-2024 Tobacco use and exposure Smokeless tobacco non-user [facility] Tobacco smoking status Never [facility] [place] Start: 03-07-2024 End: 08-27-2024 Alcoholic beverage intake Current drinker of alcohol (finding) [facility] Are you now [...] Alcohol Comment Caffeine: 2-3 cups per day [facility] Tobacco smoking stat [facility] Tobacco smoking consumption unknown [facility] Start: 04-23-2024 Gender identity Identifies as female gender (finding) [facility] Start: 07-23-2024 End: 08-07-2024 Alcoholic beverage intake Ex-drinker (finding) [facility] Start: 07-23-2024 Tobacco Comment Age 16 - 60, 1 /2 - 2 PPD, quit while at 1 PPD [facility] Medical Equipment Procedure Code Equipment Code Equipment Original Text Equipment Identifier Dates [place] Thk1.65mm P tfe 4x.5in Cardiovascular Sterile - [id number] Start: 07-24-2024 Functional Status Date Assessment Result Facility 03-20-2024 Functional Status N/A [facility] 02-26-2024 Functional Status N/A [facility] 10-13-2023 Functional Status N/A [facility] Clinical Notes 09-10-2021 to 08-27-2024 Latrell Jack MD - 08/27/2024 11:05 AM Bryon Jack MD - 08/27/2024 11:04 AM Bryon Jack MD - 08/27/2024 11:03 AM Bryon Jack MD - 08/27/2024 11:03 AM ESTPatient InstructionsRadiology Note Date & Type Note Facility 08-27-2024 History of Present illness Narrative Associated Problem(s): 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[facility]) Follow with neurology. Associated Problem(s): Medicare annual wellness visit, subsequent Due for labs. Discussed proper diet and regular aerobic exercise. Need aerobic exercise 5-6 days a week for 30 minutes at a time. Smaller portions and limit total calories. Colonoscopy every 10 years. Tetanus every 10 years. Advised not to smoke. Discussed daily Aspirin therapy. Associated Problem(s): Essential hypertension, benign ([facility]) BP controlled and monitor PRN. Associated Problem(s): COPD (chronic obstructive pulmonary disease) ([facility]) Symptoms stable and continue spiriva. Use albuterol PRN. Associated Problem(s): Class 2 severe obesity due to excess calories with serious comorbidity and body mass index (BMI) of 36.0 to 36.9 in adult ([facility]) Weight loss indicated. Images from the original note were not included. Subjective Patient ID: Shey Boss is a 73 y.o. female who presents for Medicare Annual Wellness Visit Subsequent (wellness). Presents for medicare annual wellness visit. Patient feels well today. Weight down 24 pounds in the past year. Patient had paraesophageal hernia surgery 07/24 and most of weight loss since then. Appetite improving and starting to eat more. Not active and no regular exercise. Due for labs. Following with neurology for dementia. Review of Systems Respiratory: Negative for cough, [...] There is no guarding or rebound. Musculoskeletal: General: No swelling or tenderness. Cervical back: Neck supple. Right lower leg: No edema. Left lower leg: No edema. Skin: Findings: No erythema or rash. Neurological: General: No focal deficit present. Mental Status: She is alert and oriented to person, place, and time. Cranial Nerves: No cranial nerve deficit. Motor: No weakness. Gait: Gait normal. Assessment/Plan Problem List Items Addressed This Visit Essential hypertension, benign (CMS/HCC) BP controlled and monitor PRN. Relevant Orders Basic metabolic panel COPD (chronic obstructive pulmonary disease) (CMS/HCC) Symptoms stable and continue spiriva. Use albuterol PRN. Dyslipidemia (CMS/HCC) Relevant Orders Lipid panel Encounter for long-term (current) use of medications Relevant Orders CBC and differential Hepatic function panel Prediabetes Relevant Orders Hemoglobin A1c Class 2 severe obesity due to excess calories with serious comorbidity and body mass index (BMI) of 36.0 to 36.9 in adult ([facility]) Weight loss indicated. Relevant Orders TSH Medicare annual wellness visit, subsequent - Primary Due for labs. Discussed proper diet and regular aerobic exercise. Need aerobic exercise 5-6 days a week for 30 minutes at a time. Smaller portions and limit total calories. Colonoscopy every 10 years. Tetanus every 10 years. Advised not to smoke. Discussed daily Aspirin therapy. documented in this encounter [facility] 08-07-2024 Note HNO ID: [id number] Author: KATARZYNA SNYDER APRN.COIL BUILDER Service: ? Author Type: Nurse Practitioner Type: Progress Notes Filed: 08/07/2024 15:37 Note Text: [facility] Clinic Date: August 07, 2024 Shey Boss 73 year old female CHIEF COMPLAINT: Patient presents for follow up from surgery. HPI: Here for follow up after laparoscopic paraesophageal hernia repair on 07/24/[address] Boyd. Current Diet: Full liquid Dysphagia: Denies Food regurgitation: Denies Acid Reflux/Heartburn: Denies ; still taking Protonix and Pepcid daily Pain: Some mild pain in LUQ. Taking Tylenol. Does not want an oxycodone refill Incisional Drainage: Denies Incisional Erythema: Denies Fever/Chills: Denies Increased Heart Rate: Denies Constipation: Denies Diarrhea: Resolved Nausea/Vomiting: Denies Difficulty Voiding: Denies Decreased Urine Output: Denies Shortness of Breath: Denies Cough / Wheezing: Baseline - cough and hoarseness - has slightly improved since surgery Calf/Thigh pain or swelling: Denies Present Activity level: Walking Surgery Date and Procedure: 07/24/2024 Laparoscopic paraesophageal hernia repair Randomized Controlled Trial: MVP Trial: Mesh Vs Pledgets for repair of paraesophageal hernia repair: a randomized, blinded, parallel group trial Current Medications: Current Outpatient Medications Medication Sig Dispense Refill acetaminophen (TYLENOL EXTRA STRENGTH) 500 mg tablet Take 2 tablets by mouth every 6 hours as needed for pain. docusate sodium (COLACE) 100 mg capsule Take 1 capsule by mouth two times a day as needed for constipation. tiotropium bromide (SPIRIVA RESPIMAT INHALATION) Inhale as instructed. ALBUTEROL INHALATION Inhale as instructed. Vitamin E, dl, acetate, (VITAMIN E) 400 unit capsule Take 1 capsule by mouth. aspirin 81 mg cap Take 81 mg by mouth. atorvastatin (LIPITOR) 40 mg tablet Take 40 mg by mouth. calcium carbonate (CALTRATE) 600 mg calcium (1,500 mg) tab Take 1 tablet by mouth. Cholecalciferol, Vitamin D3, 25 mcg (1,000 unit) cap Take 1 capsule by mouth. donepezil (ARICEPT) 5 mg tablet Take 5 mg by mouth daily at bedtime. famotidine (PEPCID) 40 mg tablet Take 1 tablet by mouth. fluticasone (FLONASE) 50 mcg/actuation nasal spray 2 Sprays once daily. losartan (COZAAR) 50 mg tablet Take [address] mg [address] mouth. [address]oprazole [address] (PROTONIX) 40 mg tablet Take 40 mg by mouth. Zolpidem (AMBIEN CR) 12.5 mg CR tablet Take 12.5 mg by mouth. No current facility-administered medications for this visit. REVIEW OF SYSTEMS: CONSTITUTIONAL: Patient denies fevers, chills, sweats CARDIOVASCULAR: Patient denies chest pains, palpitations RESPIRATORY: No dyspnea on exertion, no wheezing. Cough GI: No diarrhea. No constipation. No nausea/vomiting. MUSCULOSKELETAL: No new myalgias or arthralgias. DERMATOLOGIC: Patient denies any rashes or skin changes. PHYSICAL EXAM: BP 151/72 Pulse 75 Temp 36.4 ?C (97.6 ?F) (Temporal) Ht 162.6 cm (5' 4 ) Wt 92.1 kg (203 lb) BMI 34.84 kg/m? GENERAL: No apparent distress. Pt is alert and oriented x3. LUNGS: Lungs clear and equal. No wheezing HEART: Regular rate and rhythm without murmur. No leg edema ABDOMEN: Soft, nontender, and nondistended. Positive bowel sounds. EXTREMITIES: Without any cyanosis, clubbing, rash, lesions or edema. INCISIONS: Clean, dry, intact, well approximated. No s/s of infection. SURGICAL PATHOLOGY: N/A ASSESSMENT/PLAN: 1. Postoperative visit - ICD9: V58.49, ICD10: Z48.89 -Recovering well -Advance diet from full liquid to soft for 4 weeks then advance to regular as tolerated -May wait to try multivitamin and vitamin C for 2 more weeks due to size -Continue using Tylenol PRN for LUQ pain -Can try and wean off of Protonix and Pepcid (every other day for 1 week, every 3 days for 1 week..etc) -Increase activity as tolerated -Plan for follow up in 1 year, CT chest to be completed prior to appointment Katarzyna Snyder, MSN, COIL BUILDER August 07, 2024 [facility] 08-07-2024 History of Present illness Narrative [facility] Clinic Date: August 07, 2024 Shey Boss 73 year old female CHIEF COMPLAINT: Patient presents for follow up from surgery. HPI: Here for follow up after laparoscopic paraesophageal hernia repair on 07/24/[address] Boyd. Current Diet: Full liquid Dysphagia: Denies Food regurgitation: Denies Acid Reflux/Heartburn: Denies ; still taking Protonix and Pepcid daily Pain: Some mild pain in LUQ. Taking Tylenol. Does not want an oxycodone refill Incisional Drainage: Denies Incisional Erythema: Denies Fever/Chills: Denies Increased Heart Rate: Denies Constipation: Denies Diarrhea: Resolved Nausea/Vomiting: Denies Difficulty Voiding: Denies Decreased Urine Output: Denies Shortness of Breath: Denies Cough / Wheezing: Baseline - cough and hoarseness - has slightly improved since surgery Calf/Thigh pain or swelling: Denies Present Activity level: Walking Surgery Date and Procedure: 07/24/2024 Laparoscopic paraesophageal hernia repair Randomized Controlled Trial: MVP Trial: Mesh Vs Pledgets for repair of paraesophageal hernia repair: a randomized, blinded, parallel group trial Current Medications: Current Outpatient Medications Medication Sig Dispense Refill acetaminophen (TYLENOL EXTRA STRENGTH) 500 mg tablet Take 2 tablets by mouth every 6 hours as needed for pain. docusate sodium (COLACE) 100 mg capsule Take 1 capsule by mouth two times a day as needed for constipation. tiotropium bromide (SPIRIVA RESPIMAT INHALATION) Inhale as instructed. ALBUTEROL INHALATION Inhale as instructed. Vitamin E, dl, acetate, (VITAMIN E) 400 unit capsule Take 1 capsule by mouth. aspirin 81 mg cap Take 81 mg by mouth. atorvastatin (LIPITOR) 40 mg tablet Take 40 mg by mouth. calcium carbonate (CALTRATE) 600 mg calcium (1,500 mg) tab Take 1 tablet by mouth. Cholecalciferol, Vitamin D3, 25 mcg (1,000 unit) cap Take 1 capsule by mouth. donepezil (ARICEPT) 5 mg tablet Take 5 mg by mouth daily at bedtime. famotidine (PEPCID) 40 mg tablet Take 1 tablet by mouth. fluticasone (FLONASE) 50 mcg/actuation nasal spray 2 Sprays once daily. losartan (COZAAR) 50 mg tablet Take 50 mg by mouth. pantoprazole DR (PROTONIX) 40 mg tablet Take 40 mg by mouth. Zolpidem (AMBIEN CR) 12.5 mg CR tablet Take 12.5 mg by mouth. No current facility-administered medications for this visit. REVIEW OF SYSTEMS: CONSTITUTIONAL: Patient denies fevers, chills, sweats CARDIOVASCULAR: Patient denies chest pains, palpitations RESPIRATORY: No dyspnea on exertion, no wheezing. Cough GI: No diarrhea. No constipation. No nausea/vomiting. MUSCULOSKELETAL: No new myalgias or arthralgias. DERMATOLOGIC: Patient denies any rashes or skin changes. PHYSICAL EXAM: BP 151/72 Pulse 75 Temp 36.4 C (97.6 F) (Temporal) Ht 162.6 cm (5' 4 ) Wt 92.1 kg (203 lb) BMI 34.84 kg/m GENERAL: No apparent distress. Pt is alert and oriented x3. LUNGS: Lungs clear and equal. No wheezing HEART: Regular rate and rhythm without murmur. No leg edema ABDOMEN: Soft, nontender, and nondistended. Positive bowel sounds. EXTREMITIES: Without any cyanosis, clubbing, rash, lesions or edema. INCISIONS: Clean, dry, intact, well approximated. No s/s of infection. SURGICAL PATHOLOGY: N/A ASSESSMENT/PLAN: 1. Postoperative visit - ICD9: V58.49, ICD10: Z48.89 -Recovering well -Advance diet from full liquid to soft for 4 weeks then advance to regular as tolerated -May wait to try multivitamin and vitamin C for 2 more weeks due to size -Continue using Tylenol PRN for LUQ pain -Can try and wean off of Protonix and Pepcid (every other day for 1 week, every 3 days for 1 week..etc) -Increase activity as tolerated -Plan for follow up in 1 year, CT chest to be completed prior to appointment Katarzyna Snyder, MSN, COIL BUILDER August 07, 2024 What is the reason for your visit today? Post op Who is your referring physician? Dr. Snyder Are you having poor oral intake? NO Have you had unintentional weight loss of 15 lbs/7 Kg in the last 3-6 months? NO Bowels: constipated, diarrhea, or regular Wound: clean & dry Temperature: No Drains: No documented in this encounter [facility] 08-07-2024 Note HNO ID: [id number] Author: OLGA LIDIA BLAKE MA Service: ? Author Type: Enterprise Systems Engineer Type: Progress Notes Filed: 08/07/2024 15:37 Note Text: What is the reason for your visit today? Post op Who is your referring physician? Dr. Snyder Are you having poor oral intake? NO Have you had unintentional weight loss of 15 lbs/7 Kg in the last 3-6 months? NO Bowels: constipated, diarrhea, or regular Wound: clean AND dry Temperature: No Drains: No [facility] 07-31-2024 Telephone encounter Note Sent to [facility]. [facility] 07-31-2024 Miscellaneous Notes Sent to [facility]. Insurance won't cover the extended release ambien. Patient called and stated that her zolpidem refill was denied. She would like you to call her or the pharmacy. an documented in this encounter [facility] 07-31-2024 Telephone encounter Note Insurance won't cover the extended release ambien. [facility] 07-31-2024 Telephone encounter Note Patient called and stated that her zolpidem refill was denied. She would like you to call her or the pharmacy. an [facility] 07-26-2024 Note HNO ID: [id number] Author: DERREK MARSHALL RN Service: Care Management Author Type: Registered Nurse Type: Care Mgt Progress Note Filed: 07/26/2024 09:23 Note Text: CARE MANAGEMENT DISCHARGE NOTE SERVICE DATE: July 26, 2024 SERVICE TIME: 9:22 AM Admission Date: 07/24/2024 LOS: 2 days Discharge Arrangement Discharge Arrangement: Home with Self Care Services Arranged Medical Services: Other: See Comment (no services indicated) Caregiver Assessment Caregiver is ready, willing and able to meet the patient's needs as recommended by the inter-professional team: No Caregiver needed Transportation Arrangements Transportation Arrangements: Car Destination: Home Handoff Communication: Handoff to: Primary Care Physician Primary Care Physician Name/Phone: Latrell Jack MD Additional Information: Patient d/c ready to home with no skilled needs identified. Patient and bedside RN aware of plan. Family to transport patient home via private auto. SIGNATURE: Derrek Marshall RN PATIENT NAME: Shey Boss DATE: July 26, 2024 TIME: 9:22 AM [facility] 07-25-2024 Note HNO ID: [id number] Author: DERREK MARSHALL RN Service: Care Management Author Type: Registered Nurse Type: Care Mgt Initial Assessment Filed: 07/25/2024 14:30 Note Text: CARE MANAGEMENT: ASSESSMENT AND DISCHARGE PLAN SERVICE DATE: July 25, 2024 SERVICE TIME: 2:29 PM PCP: Latrell Jack MD Primary Contact: Extended Emergency Contact Information Primary Emergency Contact: Alexandria Cramer Address: [address] [facility] [address] [facility] [place] [address] [facility] Relation: Relative Admission Status: Inpatient Insurance Provider: MEDICARE A AND B Discharge Planning requested by: Per Department Practice Potential Transition Plans To Be Determined Advance Directives Current Advance Directive: None Cost Manager Attempted to Assist with AD Completion: Yes Action: Education Provided [place] of Choice Explained: [place] of Choice Given: No Reason Not Given: No placements necessary Are you interested in bedside delivery of your medications? No Caregiver Assessment: Caregiver is ready, willing and able to meet the patient's needs as recommended by the inter-professional team: No Caregiver needed Transport at Discharge: Transportation Arrangements: Car Destination: Home Needs Prior to Discharge: Needs Prior to Discharge: To Be Determined Post-Acute Discharge Plan: This patient has been screened for Care Management Transitional Planning Services. At this time, it does not appear this patient will require transition planning services. Should this change, and the patient require transition planning services during this admission, please contact Case Management. SIGNATURE: Derrek Marshall RN PATIENT NAME: Shey Boss DATE: July 25, 2024 TIME: 2:29 PM [facility] 07-25-2024 Note HNO ID: [id number] Author: DERREK MARSHALL RN Service: Care Management Author Type: Registered Nurse Type: Care Mgt Progress Note Filed: 07/25/2024 14:28 Note Text: CARE MANAGEMENT: ASSESSMENT AND DISCHARGE PLAN SERVICE DATE: July 25, 2024 SERVICE TIME: 2:28 PM PCP: Latrell Jack MD Primary Contact: Extended Emergency Contact Information Primary Emergency Contact: Alexandria Cramer Address: [address] [facility] [address] [facility] [place] [address] [facility] Relation: Relative Admission Status: Inpatient Insurance Provider: MEDICARE A AND B Discharge Planning requested by: Per Department Practice Potential Transition Plans To Be Determined Advance Directives Current Advance Directive: None Cost Manager Attempted to Assist with AD Completion: Yes Action: Education Provided [place] of Choice Explained: [place] of Choice Given: No Reason Not Given: No placements necessary Are you interested in bedside delivery of your medications? No Caregiver Assessment: Caregiver is ready, willing and able to meet the patient's needs as recommended by the inter-professional team: No Caregiver needed Transport at Discharge: Transportation Arrangements: Car Destination: Home Needs Prior to Discharge: Needs Prior to Discharge: To Be Determined Post-Acute Discharge Plan: This patient has been screened for Care Management Transitional Planning Services. At this time, it does not appear this patient will require transition planning services. Should this change, and the patient require transition planning services during this admission, please contact Case Management. SIGNATURE: Derrek Marshall RN PATIENT NAME: Shey Boss DATE: July 25, 2024 TIME: 2:27 PM [facility] 07-25-2024 Note HNO ID: [id number] Author: YAN MOSER, ? Service: General Surgery Author Type: Physician Type: Progress Notes Filed: 07/25/2024 08:57 Note Text: GENERAL SURGERY PROGRESS NOTE PATIENT NAME: Shey Boss AGE: [age] year old : 1950 SEX: female ASSESSMENT: Shey Boss is a 73 year old female with PMHx of EDWIN, HTN, HLD, GERD and Obesity who is now s/p POD1 Lap Paraesophageal hernia repair. SUBJECTIVE and INTERVAL CHANGES: AF, VSWNL No major events overnight. Pain well controlled. No nausea or vomiting. Appropriate UOP, rdz removed PLAN: Neuro: Continue current multimodal pain regimen. Resp: O2 per protocol. Incentive spirometer 10 breaths/hr while awake. CPAP at night. Card: No issues. Monitor FEN/GI: NPO except meds and popsicles until UGI this am. CLD and advance towards FLD after. Keep mIVF. : Monitor UOP. Heme/ID: No issues. Daily CBC Ppy: Encourage mobilization, ambulation, and out of bed. SCD while in bed or sitting in a chair. Lovenox Lines/Tubes: PIV x1, Rdz out. Appreciate Strict Ins AND Outs. Dispo: Continue care on RNF. Anticipate discharge today or tomorrow pending UGI results and initiation of diet. Yan Moser MD General Surgery OBJECTIVE: VITAL SIGNS: BP 127/60 Pulse 92 Temp 36.8 ?C (98.2 ?F) (Oral) Resp 17 Ht 162.6 cm (5' 4 ) Wt 102.3 kg (225 lb 8.5 oz) SpO2 94% BMI 38.71 kg/m? Body mass index is 38.71 kg/m?. PHYSICAL EXAM: GENERAL: Alert and oriented, no acute distress, cooperative. LUNGS: Non-labored breathing on RA LNC ABDOMEN: soft, non-tender, non-distended. WOUND: clean, dry and intact. LABS: CBC, Coags, BMP, Mg, Phos Recent Labs 07/24/24 1813 07/23/24 1141 WBC 7.18 4.84 HB 13.4 13.4 HCT 38.8 39.0 PLT 144* 169 INR -- 1.1 APTT -- 25.5 NA 141 141 K 4.0 4.3 CHLOR 105 108* CO2 21* 23 BUN 10 13 CREAT 0.83 0.99* GLUC 171* 155* CA 9.3 9.4 MG 1.7 -- P 3.6 -- Liver Function, Amylase, AND Lipase Recent Labs 07/23/24 1141 TPROT 6.9 ALB 4.2 ALT 26 AST 28 ALKPHOS 111 TBILI 0.5 I/O PAST 24HRS: Intake/Output Summary (Last 24 hours) at 07/25/2024 0854 Last data filed at 07/25/2024 0819 Gross per 24 hour Intake 1575 ml Output 2410 ml Net -835 ml LINE, DRAINS AND AIRWAY: Lines, Drains, and Airways Line Duration Peripheral 07/24/24 0900 [facility] Right Hand 20 Gauge <1 day Peripheral 07/24/24 1111 Left Hand 18 Gauge <1 day SURGERY/PROCEDURE: Procedure(s) and Anesthesia Type: * LAPAROSCOPIC RPR PARAESOPHAGEAL HERNIA W/O FUNDOPLASTY W/ MESH - General [facility] 07-24-2024 Note HNO ID: [id number] Author: NENA SEPULVEDA MD Service: General Surgery Author Type: Resident Type: Plan of Care Filed: 07/24/2024 19:11 Note Text: POST OPERATIVE CHECK Assessment and Plan: 73 year old female POD0 s/p PEHR and gastropexy. Currently doing well on RNF. Subjective: Patient feels well. Denies nausea/vomiting. Adequate UOP in rdz bag. Pain well controlled while lying down, endorses increased pain with coughing. Has not ambulated yet. Objective: BP 133/50 Pulse 98 Temp 36.5 ?C (97.7 ?F) (Oral) Resp 16 Ht 162.6 cm (5' 4 ) Wt 102.3 kg (225 lb 8.5 oz) SpO2 100% BMI 38.71 kg/m? PHYSICAL EXAM General: AANDO x 3, no acute distress Neuro: moves all extremities with no apparent weakness Heart: RRR Lungs: non-labored breathing on RA Abd: soft, appropriately tender, non-distended, non-peritonitic Incisions: clean, dry and intact Ext: no edema Signature: Nena Sepulveda MD SERVICE DATE: 07/24/24 SERVICE TIME: 7:09 PM [facility] 07-24-2024 Note HNO ID: [id number] Author: TRIP GRAY RN Service: Nursing Author Type: Registered Nurse Type: Progress Notes Filed: 07/24/2024 18:55 Note Text: [id number] Paged [id number] to notify that patient came up from PACU with a rdz in but no active rdz order. Requesting order to be placed. [facility] 07-24-2024 Note HNO ID: [id number] Author: TRIP GRAY RN Service: Nursing Author Type: Registered Nurse Type: Progress Notes Filed: 07/24/2024 18:25 Note Text: Admission/Transfer Note PATIENT NAME: Shey Boss Patient Location: [place] [address] Room: [place] [address] Patient admitted from PACU via bed in stable condition. Actions taken: Patient oriented to room, call light function, prescribed activities, Patient rights, and Quiet at night. Patient belongings with patient. This note was completed by: Trip Gray [facility] 07-24-2024 Note HNO ID: [id number] Author: BETTY ALLEN APRN.STAVE AND BOLT EQUALIZER Service: ? Author Type: Nurse Scrubber System Attendant Type: Anesthesia Procedure Notes Filed: 07/24/2024 11:23 Note Text: ANESTHESIOLOGY PROCEDURE NOTE Airway General Information Procedure Start Time/Medication Administration: 07/24/2024 11:09 AM Procedure End Time: 07/24/2024 11:09 AM Patient location during procedure: OR Timeout Performed Pre-procedure: timeout performed Consent Obtained: Yes Patient identity confirmed: arm band, care truck driver teamster and patient Staffing STAVE AND BOLT EQUALIZER: Betty Allen APRN.STAVE AND BOLT EQUALIZER Performed by: ELIZABETH Indications and Patient Condition Indications for airway management: anesthesia Preoxygenated: yes anesthesia circuit Patient position: reverse Trendelenburg, sniffing and ramp Method: rapid sequence Final Airway Details Final airway type: endotracheal airway Final Endotracheal Airway: ETT Cuffed: yes Successful intubation technique: video laryngoscopy Devices used: Memorado Endotracheal tube insertion site: oral Blade size: #3 ETT size (mm): 7.0 Measured from: lips Measurement (cm): 21 Placement verified by: capnometry Cormack-Lehane Classification: grade I - full view of glottis Number of attempts at approach: 1 Airway not difficult SIGNATURE: Betty Allen APRN.CRNA PATIENT NAME: Shey Boss DATE: July 24, 2024 TIME: 11:23 AM CSN: [id number] [facility] 07-24-2024 Note HNO ID: [id number] Author: BETTY ALLEN APRN.CRNA Service: ? Author Type: Nurse Scrubber System Attendant Type: Anesthesia Procedure Notes Filed: 07/24/2024 11:23 Note Text: ANESTHESIOLOGY PROCEDURE NOTE PIV General Information Procedure Start Time/Medication Administration: 07/24/2024 11:11 AM Procedure End Time: 07/24/2024 11:11 AM Patient Location: OR Staffing STAVE AND BOLT EQUALIZER: Betty Allen APRN.STAVE AND BOLT EQUALIZER Performed by: ELIZABETH Preparation Sterility Preparation: hand hygiene performed prior to procedure, surgical cap used, mask used, skin prep agent completely dried prior to procedure Site Prep: alcohol Procedure Details Indication: need for IV access Needle Size/Type: 18 gauge angiocath Orientation: Left Location: Hand Imaging Guidance Used: No SIGNATURE: Betty Allen APRN.CRNA PATIENT NAME: Shey Boss DATE: July 24, 2024 TIME: 11:22 AM CSN: [id number] [facility] 07-24-2024 Note HNO ID: [id number] Author: ABDELRAHMAN HE MD Service: General Surgery Author Type: Resident Type: Plan of Care Filed: 07/24/2024 10:30 Note Text: Patient consented for study? Yes STUDY TITLE: MVP Trial: Mesh Vs Pledgets for repair of paraesophageal hernia repair: a randomized, blinded, parallel group trial IRB NO.: #[id number] VAN LOADER: Willard Ramirez MD COORDINATOR/Research Nurse/Supervisor Mails: Abdelrahman He MD Phone/email: [phone], [email or web address] Consenting was performed in person [...] CRITERIA Yes No 1. The patient lacks Irish language fluency or cannot understand the consent form/study procedures [] [x] 2. The patient is [] [x] 3. The patient has a BMI >45 [] [x] 4. The patient has undergone previous hiatal hernia repair [] [x] 5. The patient will undergo paraesophageal hernia repair with a concurrent bariatric procedure to reduce stomach volume [] [x] [facility] 07-23-2024 History of Present illness Narrative Radiology Service Progress Note PATIENT NAME: Shey Boss DATE OF SERVICE: July 23, 2024 TIME: 1:59 PM PATIENT IDENTITY VERIFICATION COMPLETED USING TWO (2) IDENTIFIERS: Name and Date of confirmed by patient verbally. FALL SCREENING: Has the patient had 2 falls in the last year or 1 fall with injury or currently using an Ambulatory Assistive Device (Walker, Cane, Wheelchair, Crutches, etc.)? No PATIENT GENDER DATA: Assigned female at . status: : No status: NO. PATIENT RELEVANT IMPLANT DATA REVIEWED: Not Applicable PATIENT PRESENTS WITH AN IMPLANTABLE OR ATTACHED TAXONOMY TEACHER: No RADIOLOGY DEPARTMENT: General X-ray: Exam(s) Completed: Chest X-Ray PERIPHERAL IV DATA: Not applicable SIGNED BY: RT Liu(Ortega) July 23, 2024 1:59 PM documented in this encounter [facility] 07-23-2024 Note HNO ID: [id number] Author: HUMERA POSEY RT (R) Service: Radiology Author Type: Technologist Type: Progress Notes Filed: 07/23/2024 14:00 Note Text: Radiology Service Progress Note PATIENT NAME: Shey Boss DATE OF SERVICE: July 23, 2024 TIME: 1:59 PM PATIENT IDENTITY VERIFICATION COMPLETED USING TWO (2) IDENTIFIERS: Name and Date of confirmed by patient verbally. FALL SCREENING: Has the patient had 2 falls in the last year or 1 fall with injury or currently using an Ambulatory Assistive Device (Walker, Cane, Wheelchair, Crutches, etc.)? No PATIENT GENDER DATA: Assigned female at . status: : No status: NO. PATIENT RELEVANT IMPLANT DATA REVIEWED: Not Applicable PATIENT PRESENTS WITH AN IMPLANTABLE OR ATTACHED TAXONOMY TEACHER: No RADIOLOGY DEPARTMENT: General X-ray: Exam(s) Completed: Chest X-Ray PERIPHERAL IV DATA: Not applicable SIGNED BY: RT Liu(Ortega) July 23, 2024 1:59 PM [facility] 07-23-2024 Instructions Jamil Delacruz PA-C - 07/23/2024 1:27 PM EST Images from the original note were not included. [facility] PATIENT PREOPERATIVE INSTRUCTIONS Dr. Boyd has scheduled you for your procedure at this surgery center: [facility] [place] Scheduling Office: [phone] --[address] [place] [address]. Please read below carefully for your personalized instructions. Dietary Restrictions: - Nothing to eat or drink after midnight except for a sip of water with approved medications. Medications: Unless instructed differently below, stay on all of your medications until your surgery. If you start any new medications after today's visit, please contact your surgeon. Pre-Surgery Med Instructions Medication Instructions tiotropium bromide (SPIRIVA RESPIMAT INHALATION) Use the day of surgery. ALBUTEROL INHALATION Use the day of surgery. Vitamin E, dl, acetate, (VITAMIN E) 400 unit capsule Do not take the day of surgery atorvastatin (LIPITOR) 40 mg tablet Take the day of surgery with a small sip of water calcium carbonate (CALTRATE) 600 mg calcium (1,500 mg) tab Do not take the day of surgery Cholecalciferol, Vitamin D3, 25 mcg (1,000 unit) cap Do not take the day of surgery donepezil (ARICEPT) 5 mg tablet Take the day of surgery with a small sip of water famotidine (PEPCID) 40 mg tablet Take the day of surgery with a small sip of water fluticasone (FLONASE) 50 mcg/actuation nasal spray Do not use the day of surgery losartan (COZAAR) 50 mg tablet Take the day of surgery with a small sip of water pantoprazole DR (PROTONIX) 40 mg tablet Take the day of surgery with a small sip of water Zolpidem (AMBIEN CR) 12.5 mg CR tablet Take the night prior to surgery as usual. If you start any new medications after today's visit, please contact the surgeon's office. If you are currently using a mags-bks-hokd injectable or oral medication for diabetes or weight loss such as Dulaglutide (Trulicity), Exenatide (Byetta, Bydureon), Liraglutide (Victoza, Saxenda), Semaglutide (Ozempic, Wegovy, Rybelsus), or Tirzepatide (Mounjaro), the medicine should be stopped at least 7 days before surgery. These medicines can cause food to remain in your stomach for a very long time and increase the risks from surgery and anesthesia. Not stopping the medication for a long enough time may result in your surgery being rescheduled. Blood Thinning Medications: - Stop NSAIDS (Ibuprofen, Advil, Aleve, Motrin, Celebrex, Mobic, etc.) 7 days before surgery, as directed by your surgeon. - Stop Aspirin 7 days before surgery, as directed by your surgeon. - Stop ALL herbal and dietary supplements 7 days before surgery. - You may take Tylenol (Acetaminophen) or any of your pain medications that do not contain aspirin or NSAIDS as needed. Important Reminders: - If you use CPAP/BIPAP, bring the machine with you to the surgery center. - If you are prescribed inhalers for breathing, continue using them. - Candy, mints, and tobacco products are NOT permitted the morning of surgery. - Hearing aids, dentures and glasses may be worn the morning of surgery. - NO jewelry, body piercings, makeup, hairpins or contacts are to be worn the day of surgery. If you develop symptoms such as a fever, cold, or flu, or have other changes to your health within TWO DAYS of scheduled surgery or the morning of surgery, please contact the surgery center above. Personal Belongings: -Please have photo ID and insurance cards. -If you do not have a copy of advance directives on file with us, please bring a copy with you on the day of surgery. - Leave ALL valuables and money at home or with family members. - Please bring high-quality footwear, such as sneakers, to the hospital for ambulating post-surgery. For Outpatient Procedures: - YOU MUST HAVE A RESPONSIBLE FUNDING COORDINATOR TAKE YOU HOME. A LINE SERVER OR DUST SAMPLER CANNOT BE MADE A RESPONSIBLE FUNDING COORDINATOR. - We recommend that a responsible person stays with you overnight to take care of you. - You cannot stay in a hotel alone after outpatient surgery. You will not be permitted to have your surgery, if you do not have someone to take care of you. Arrival Time for Surgery: - To obtain your arrival time for surgery, call your physician's office the day before your surgery. - If you have received different instructions about finding out your arrival time from your surgeon, please follow those instructions. - If your surgery is scheduled for Monday, call the Monday before. Your surgeon s hat designer will tell you what time to call the office. - If you have not reached the departmental hat designer by 5 P.M., call [phone] after 5 P.M. the day before your surgery. Please be aware that emergency situations arise, which may delay or change your surgical time. If this happens, we will notify you as soon as possible and regret any inconvenience. If you already have an Advance Directive, please fax a copy to [phone] or email to for it to be added to your chart. If you do not have an Advance Directive, you can find the appropriate form and more information at [email or web address]. We recommend that you complete the Advance Directive form found on the website and bring it with you the day of your surgery. It can be witnessed and scanned into your chart that day. Jamil Delacruz PA-C documented in this encounter [facility] 07-23-2024 History and physical note Images from the original note were not included. [facility] HISTORY AND PHYSICAL EXAMINATION SERVICE DATE: 07/23/2024 SERVICE TIME: 1:07 PM PRIMARY CARE PHYSICIAN: Latrell Jack MD Assessment Patient has the following medical conditions which may affect jovana-operative course: Mini Cog Score: 5 Chronic obstructive pulmonary disease (HCC) -Continue inhalers, has not needed to use albuterol in the past 3-4 months -SpO2 99% on RA -Follows OP with PCP -Patient in NAD -Admits to chronic exertional dyspnea, not new or worsening -Former heavy smoker -CXR pending Former smoker -Smoked from age [age] (quit in 2011), 1/2-2 PPD EDWIN (obstructive sleep apnea) -Compliant with CPAP HTN (hypertension) -Managed on losartan -BP today 152/73 -EKG reviewed, NSR GERD (gastroesophageal reflux disease) -Managed on PPI, Pepcid Dyslipidemia -Continue statin TIA (transient ischemic attack) -Noted in EMR however patient denies Abnormal MRI of head -03/15/24 MRI brain Mild chronic microvascular ischemic and involutional changes. -Managed on aspirin, please note last dose was 1/13/25 PM Memory loss -Follows OP with PCP -Managed on donepezil Chronic back pain -Follows OP with pain management Primary insomnia -Managed on Ambien Obesity -Body mass index is 37.45 kg/m . Sheth Activity Status Index: METS: DASI Score: 0 (Limited in activity 2/2 chronic back pain +chronic exertional dyspnea due to COPD) Patient is limited most or all of the time (uses scooter, mobility device) (uses cane with ambulation). Clinical Frailty Scale: 4. Apparently vulnerable STOP-Bang Score: STOP-Bang Score: (+EDWIN - compliant with CPAP) ARISCAT Score: Age: 51-80 Preoperative SpO2: >=96% Respiratory infection in the last month: No Preoperative anemia: No Surgical incision: upper abdominal Duration of surgery: >3 hrs Emergency procedure: No ARISCAT Score: 41 ANESTHESIA FINDINGS: Intubation History: No history of difficult intubation Significant Anesthesia Considerations: none Airway History: No history of difficult airway I - PHYSICAL EVALUATION AIRWAY Patient intubated: No. Tracheostomy tube not present Mallampati: IV. TM distance: >3 FB. Neck ROM: full ROM without neurological symptoms. Mouth opening: adequate. Short neck: yes. Thick neck: yes Lip Bite Test: I Microretrognathia/Micronagthia/Recesse d Chin: No DENTAL Dentures, upper: complete. Dentures, lower: complete. II - ANESTHESIA PLAN Anesthetic plan additional comments: *PACC/TCI - anesthesia choice. Beta Martin Monitoring Plan Post Procedure Analgesic Plan Prepared for Surgery: optimally prepared for surgery, pending day of surgery. EKG, labs, CXR, DOS exam. Patient seen in [facility] the day prior to surgery. Please note last dose of baby aspirin was 07/22 PM. CONSULTS: Patient does not require consults for optimization at this time Planned Anesthetic: anesthesia choice The Following Tests/Procedures Have Been Initiated: EKG, labs REASON FOR VISIT: Shey Boss is a 73 year old female who is scheduled for Procedure(s): LAPAROSCOPIC RPR PARAESOPHAGEAL HERNIA W/O FUNDOPLASTY W/ MESH (N/A) at the request of Dr. Boyd, Xavier Mayfield MD for consultation. My final recommendation will be communicated back to the requesting physician by way of shared medical record or letter. Subjective The patient has the following: COVID-19 Immunization Status Overdue - Covid-19 Vaccine ( season) Overdue since 03/10/2024 03/27/2023 Imm Admin: COVID-19 vaccine, age 12+ yr (PFIZER-BIONTECH COMIRNATY) 05/03/2022 Imm Admin: COVID-19 vaccine, age 12+ yr, bivalent (PFIZER-BIONTECH) 04/12/2021 Imm Admin: COVID-19 original vaccine, age 12+ yr, monovalent ([employer]-BIONTECH - PURPLE TOP) Only the first 3 history entries have been loaded, but more history exists. CHIEF COMPLAINT: Paraesophageal hernia [K44.9] HPI: Shey Boss is a 73 year old female with PMH including HTN, COPD, obesity, and EDWIN who presents to [facility] today for preop exam. Patient is scheduled for the above procedure tomorrow 07/24/24. Patient admits to dysphagia, GERD, and epigastric pain that is relieved with belching. Found to have type III PEH on esophagram. Electing to proceed with the above procedure. Denies fevers, chills, chest pain. REVIEW OF SYSTEMS: General: Negative for: fever. Neurological: Negative for: seizures, TIA and strokes. Respiratory: Positive for: COPD, dyspnea (chronic, exertional), obstructive sleep apnea and CPAP/BiPAP compliant. Negative for: asthma, current cough, pneumonia within 6 weeks, tobacco use and URI < 2 weeks. Cardiovascular: Positive for: hyperlipidemia and hypertension Negative for: angina, anticoagulation therapy, arrhythmia, atrial fibrillation, CAD, chest pain, CHF, congenital heart defect, DVT/PE, recent MN and murmur/valvular heart disease. GI: See HPI. Positive for: dysphagia (solid foods), GERD and heartburn Negative for: abdominal pain, hepatitis, liver disease, nausea and vomiting. : Negative for: on dialysis, dysuria, hematuria, nephrolithiasis and renal failure. Endocrine: Negative for: diabetes mellitus, hyperthyroidism, hypothyroidism and steroid for chronic problem. Hematology: Positive for: chronic anti-coagulation/platelet meds. Patient is on anti-coagulation/platelet medication(s): Aspirin. Negative for: anemia, factor V Leiden and von Willebrand disease. Oncology: No history of CA metastasis, chemo within 30 days, or radiotherapy within 90 days. No history of oncological symptoms or problems. Musculoskeletal: Positive for: back pain. Skin: Negative for lesions, rash and itching. PAST MEDICAL HISTORY Diagnosis Date Chronic back pain 07/23/2024 Former smoker 07/23/2024 Memory loss 07/23/2024 PAST SURGICAL HISTORY Procedure Laterality Date PAST SURGICAL HISTORY OF cauterization of lumbar nerve PAST SURGICAL HISTORY OF Right ankle reconstruction PAST SURGICAL HISTORY OF Left trigger finger x 3 PAST SURGICAL HISTORY OF oral surgery TONSILLECTOMY HX at age 6 FAMILY HISTORY Problem Relation Age of Onset Anesthesia Problems No Family History Social History Tobacco Use Smoking status: Former Types: Cigarettes Start date: 2011 Quit date: 1967 Years since quittin.0 Smokeless tobacco: Never Tobacco comments: Age 17 - 61, 1/2 - 2 PPD, quit while at 2 PPD Substance Use Topics Alcohol use: Not Currently Drug use: Never Prior to Admission medications as of 07/23/24 1304 Medication Sig Last Dose Taking tiotropium bromide (SPIRIVA RESPIMAT INHALATION) Inhale as instructed. Taking Yes ALBUTEROL INHALATION Inhale as instructed. Taking Yes Vitamin E, dl, acetate, (VITAMIN E) 400 unit capsule Take 1 capsule by mouth. Taking Yes atorvastatin (LIPITOR) 40 [...] Take 12.5 mg by mouth. Taking Yes aspirin 81 mg cap Take 81 mg by mouth. No medication comments found. ALLERGIES No Known Allergies Objective PHYSICAL EXAM: General: alert and oriented, healthy appearance and obese. Pertinent negatives noted - not distressed. Skin: normal color, no rash or lesions. HEENT: EOM intact. Cardiovascular: regular rate and rhythm, normal S1 and S2, no rub, murmurs, or gallop. Respiratory: No chest wall deformity or tenderness. Breath sounds distant . Abdomen: bowel sounds present. Extremities: no deformity, no edema or tenderness, no joint swelling or clubbing. Neurological: normal cognition and motor skills. Positive for abnormal gait (uses cane with ambulation). PAIN ASSESSMENT: Pain Pain Level: 8 Pain Location: Abdomen Description: Cramping, Pressure Duration Amount of Time: 4 Duration Units: Months Frequency: Continuous Intervention/Comfort measure: Declined VITALS: BP 153/73 Pulse 77 Temp (Src) 98 (Temporal) Resp 20 Ht 5' 3 (1.60m) Wt 211 lb 6.7 oz (95.9kg) SpO2 99% BMI 37.46 kg/(m^2). Diagnostic tests reviewed for today's visit: Lab Value Units Date High Low HB 13.4 g/dL 07/23/2024 15.5 11.5 HCT 39.0 % 07/23/2024 46.0 36.0 WBC 4.84 k/uL 07/23/2024 11.00 3.70 PLT 169 k/uL 07/23/2024 400 150 NA No results within date range. K No results within date range. GLUC No results within date range. BUN No results within date range. CREAT No results within date range. PTSEC 11.4 sec 07/23/2024 13.0 9.7 INR 1.1 no uni* 07/23/2024 1.3 0.9 APTT 25.5 sec 07/23/2024 32.4 23.0 ALT No results within date range. AST No results within date range. TBILI No results within date range. TSH No results within date range. Lab Value Units Date High Low HCGQT No results within date range. UHCG No results within date range. HCG, BODY* No results within date range. Lab Value Units Date High Low ABORHD No results within date range. ABSCREEN No results within date range. No results found for: HBA1C Recent Results (from the past 8760 hour(s)) ECG COMPLETE Collection Time: 07/23/24 12:08 PM Result Value Ventricular Rate 66 Atrial Rate 66 P-R Interval 158 QRS Duration 78 QT Interval 404 QTC Calculation (Bazett) 423 Calculated P [place] 32 Calculated R [place] 14 Calculated T [place] 54 Impression NORMAL SINUS RHYTHM NORMAL ECG No results found for this or any previous visit (from the past 03927 hour(s)). Instructions Given to Patient: Instructions located in the after visit summary. Patient given verbal and written preop instructions and voices comprehension and compliance. SIGNATURE: Jamil Delacruz PA-C PATIENT NAME: Shey Boss DATE: July 23, 2024 TIME: 1:07 PM PAGER/CONTACT #: [facility] 07-23-2024 History and physical note Images from the original note were not included. [facility] HISTORY AND PHYSICAL EXAMINATION SERVICE DATE: 07/23/2024 SERVICE TIME: 1:07 PM PRIMARY CARE PHYSICIAN: Latrell Jack MD Assessment Patient has the following medical conditions which may affect jovana-operative course: Mini Cog Score: 5 Chronic obstructive pulmonary disease (HCC) -Continue inhalers, has not needed to use albuterol in the past 3-4 months -SpO2 99% on RA -Follows OP with PCP -Patient in NAD -Admits to chronic exertional dyspnea, not new or worsening -Former heavy smoker -CXR pending Former smoker -Smoked from age [age] (quit in 2011), 1/2-2 PPD EDWIN (obstructive sleep apnea) -Compliant with CPAP HTN (hypertension) -Managed on losartan -BP today 152/73 -EKG reviewed, NSR GERD (gastroesophageal reflux disease) -Managed on PPI, Pepcid Dyslipidemia -Continue statin TIA (transient ischemic attack) -Noted in EMR however patient denies Abnormal MRI of head -03/15/24 MRI brain Mild chronic microvascular ischemic and involutional changes. -Managed on aspirin, please note last dose was 07/22/24 PM Memory loss -Follows OP with PCP -Managed on donepezil Chronic back pain -Follows OP with pain management Primary insomnia -Managed on Ambien Obesity -Body mass index is 37.45 kg/m . Sheth Activity Status Index: METS: DASI Score: 0 (Limited in activity 2/2 chronic back pain +chronic exertional dyspnea due to COPD) Patient is limited most or all of the time (uses scooter, mobility device) (uses cane with ambulation). Clinical Frailty Scale: 4. Apparently vulnerable STOP-Bang Score: STOP-Bang Score: (+EDWIN - compliant with CPAP) ARISCAT Score: Age: 51-80 Preoperative SpO2: >=96% Respiratory infection in the last month: No Preoperative anemia: No Surgical incision: upper abdominal Duration of surgery: >3 hrs Emergency procedure: No ARISCAT Score: 41 ANESTHESIA FINDINGS: Intubation History: No history of difficult intubation Significant Anesthesia Considerations: none Airway History: No history of difficult airway I - PHYSICAL EVALUATION AIRWAY Patient intubated: No. Tracheostomy tube not present Mallampati: IV. TM distance: >3 FB. Neck ROM: full ROM without neurological symptoms. Mouth opening: adequate. Short neck: yes. Thick neck: yes Lip Bite Test: I Microretrognathia/Micronagthia/Recesse d Chin: No DENTAL Dentures, upper: complete. Dentures, lower: complete. II - ANESTHESIA PLAN Anesthetic plan additional comments: *PACC/TCI - anesthesia choice. Beta Martin Monitoring Plan Post Procedure Analgesic Plan Prepared for Surgery: optimally prepared for surgery, pending day of surgery. EKG, labs, CXR, DOS exam. Patient seen in [facility] the day prior to surgery. Please note last dose of baby aspirin was 1/13 PM. CONSULTS: Patient does not require consults for optimization at this time Planned Anesthetic: anesthesia choice The Following Tests/Procedures Have Been Initiated: EKG, labs REASON FOR VISIT: Shey Boss is a 73 year old female who is scheduled for Procedure(s): LAPAROSCOPIC RPR PARAESOPHAGEAL HERNIA W/O FUNDOPLASTY W/ MESH (N/A) at the request of Dr. Boyd, Xavier Mayfield MD for consultation. My final recommendation will be communicated back to the requesting physician by way of shared medical record or letter. Subjective The patient has the following: COVID-19 Immunization Status Overdue - Covid-19 Vaccine ( season) Overdue since 03/10/2024 03/27/2023 Imm Admin: COVID-19 vaccine, age 12+ yr (PFIZER-BIONTECH COMIRNATY) 05/03/2022 Imm Admin: COVID-19 vaccine, age 12+ yr, bivalent ([employer]-BIONTECH) 04/12/2021 Imm Admin: COVID-19 original vaccine, age 12+ yr, monovalent ([employer] - PURPLE TOP) Only the first 3 history entries have been loaded, but more history exists. CHIEF COMPLAINT: Paraesophageal hernia [K44.9] HPI: Shey Boss is a 73 year old female with PMH including HTN, COPD, obesity, and EDWIN who presents to [facility] today for preop exam. Patient is scheduled for the above procedure tomorrow 07/24/24. Patient admits to dysphagia, GERD, and epigastric pain that is relieved with belching. Found to have type III PEH on esophagram. Electing to proceed with the above procedure. Denies fevers, chills, chest pain. REVIEW OF SYSTEMS: General: Negative for: fever. Neurological: Negative for: seizures, TIA and strokes. Respiratory: Positive for: COPD, dyspnea (chronic, exertional), obstructive sleep apnea and CPAP/BiPAP compliant. Negative for: asthma, current cough, pneumonia within 6 weeks, tobacco use and URI < 2 weeks. Cardiovascular: Positive for: hyperlipidemia and hypertension Negative for: angina, anticoagulation therapy, arrhythmia, atrial fibrillation, CAD, chest pain, CHF, congenital heart defect, DVT/PE, recent MN and murmur/valvular heart disease. GI: See HPI. Positive for: dysphagia (solid foods), GERD and heartburn Negative for: abdominal pain, hepatitis, liver disease, nausea and vomiting. : Negative for: on dialysis, dysuria, hematuria, nephrolithiasis and renal failure. Endocrine: Negative for: diabetes mellitus, hyperthyroidism, hypothyroidism and steroid for chronic problem. Hematology: Positive for: chronic anti-coagulation/platelet meds. Patient is on anti-coagulation/platelet medication(s): Aspirin. Negative for: anemia, factor V Leiden and von Willebrand disease. Oncology: No history of CA metastasis, chemo within 30 days, or radiotherapy within 90 days. No history of oncological symptoms or problems. Musculoskeletal: Positive for: back pain. Skin: Negative for lesions, rash and itching. PAST MEDICAL HISTORY Diagnosis Date Chronic back pain 07/23/2024 Former smoker 07/23/2024 Memory loss 07/23/2024 PAST SURGICAL HISTORY Procedure Laterality Date PAST SURGICAL HISTORY OF cauterization of lumbar nerve PAST SURGICAL HISTORY OF Right ankle reconstruction PAST SURGICAL HISTORY OF Left trigger finger x 3 PAST SURGICAL HISTORY OF oral surgery TONSILLECTOMY HX at age 6 FAMILY HISTORY Problem Relation Age of Onset Anesthesia Problems No Family History Social History Tobacco Use Smoking status: Former Types: Cigarettes Start date: 2011 Quit date: 1968 Years since quittin.0 Smokeless tobacco: Never Tobacco comments: Age 17 - 61, 1/2 - 2 PPD, quit while at 2 PPD Substance Use Topics Alcohol use: Not Currently Drug use: Never Prior to Admission medications as of 07/23/24 1304 Medication Sig Last Dose Taking tiotropium bromide (SPIRIVA RESPIMAT INHALATION) Inhale as instructed. Taking Yes ALBUTEROL INHALATION Inhale as instructed. Taking Yes Vitamin E, dl, acetate, (VITAMIN E) 400 unit capsule Take 1 capsule by mouth. Taking Yes atorvastatin (LIPITOR) 40 [...] Take 12.5 mg by mouth. Taking Yes aspirin 81 mg cap Take 81 mg by mouth. No medication comments found. ALLERGIES No Known Allergies Objective PHYSICAL EXAM: General: alert and oriented, healthy appearance and obese. Pertinent negatives noted - not distressed. Skin: normal color, no rash or lesions. HEENT: EOM intact. Cardiovascular: regular rate and rhythm, normal S1 and S2, no rub, murmurs, or gallop. Respiratory: No chest wall deformity or tenderness. Breath sounds distant . Abdomen: bowel sounds present. Extremities: no deformity, no edema or tenderness, no joint swelling or clubbing. Neurological: normal cognition and motor skills. Positive for abnormal gait (uses cane with ambulation). PAIN ASSESSMENT: Pain Pain Level: 8 Pain Location: Abdomen Description: Cramping, Pressure Duration Amount of Time: 4 Duration Units: Months Frequency: Continuous Intervention/Comfort measure: Declined VITALS: BP 153/73 Pulse 77 Temp (Src) 98 (Temporal) Resp 20 Ht 5' 3 (1.60m) Wt 211 lb 6.7 oz (95.9kg) SpO2 99% BMI 37.46 kg/(m^2). Diagnostic tests reviewed for today's visit: Lab Value Units Date High Low HB 13.4 g/dL 07/23/2024 15.5 11.5 HCT 39.0 % 07/23/2024 46.0 36.0 WBC 4.84 k/uL 07/23/2024 11.00 3.70 PLT 169 k/uL 07/23/2024 400 150 NA No results within date range. K No results within date range. GLUC No results within date range. BUN No results within date range. CREAT No results within date range. PTSEC 11.4 sec 07/23/2024 13.0 9.7 INR 1.1 no uni* 07/23/2024 1.3 0.9 APTT 25.5 sec 07/23/2024 32.4 23.0 ALT No results within date range. AST No results within date range. TBILI No results within date range. TSH No results within date range. Lab Value Units Date High Low HCGQT No results within date range. UHCG No results within date range. HCG, BODY* No results within date range. Lab Value Units Date High Low ABORHD No results within date range. ABSCREEN No results within date range. No results found for: HBA1C Recent Results (from the past 8760 hour(s)) ECG COMPLETE Collection Time: 07/23/24 12:08 PM Result Value Ventricular Rate 66 Atrial Rate 66 P-R Interval 158 QRS Duration 78 QT Interval 404 QTC Calculation (Bazett) 423 Calculated P [place] 32 Calculated R [place] 14 Calculated T [place] 54 Impression NORMAL SINUS RHYTHM NORMAL ECG No results found for this or any previous visit (from the past 28502 hour(s)). Instructions Given to Patient: Instructions located in the after visit summary. Patient given verbal and written preop instructions and voices comprehension and compliance. SIGNATURE: Jamil Delacruz PA-C PATIENT NAME: Shey Boss DATE: July 23, 2024 TIME: 1:07 PM PAGER/CONTACT #: documented in this encounter [facility] 07-01-2024 Telephone encounter Note Sending this to Dr Jack [facility] 07-01-2024 Miscellaneous Notes Sending this to Dr Jack Did we call Dr. Jack's office and let him know that we took over the Aricept. If not can we please. I do not see it documented. Thank you documented in this encounter [facility] 06-29-2024 Telephone encounter Note Did we call Dr. Jack's office and let him know that we took over the Aricept. If not can we please. I do not see it documented. Thank you [facility] 06-13-2024 Telephone encounter Note Patient would like her Losartan 50 mg and Pantoprazole 40 mg changed to [facility] instead of VALERIA KUMARI [facility] 06-13-2024 Miscellaneous Notes Patient would like her Losartan 50 mg and Pantoprazole 40 mg changed to [facility] instead of VALERIA KUMARI documented in this encounter [facility] 05-15-2024 History of Present illness Narrative Associated [...] Associated Problem(s): COPD (chronic obstructive pulmonary disease) (CMS/HCC) Symptoms stable and continue spiriva. Use albuterol PRN. Associated Problem(s): Class 2 severe obesity due to excess calories with serious comorbidity and body mass index (BMI) of 38.0 to 38.9 in adult (CMS/HCC) Weight loss indicated. Images from the original [...] (BMI) of 38.0 to 38.9 in adult (CMS/[facility]) Weight loss indicated. documented in this encounter [facility] 04-29-2024 Note HNO ID: [id number] Author: XAVIER BOYD MD Service: ? Author [...] blinded, parallel group trial IRB NO.: #[id number] VAN LOADER: Pa Prakash MD COORDINATOR/Research Nurse/Supervisor Mails: Abdelrahman He MD Phone/email: [phone], [email or web address] Consenting was performed in person prior [...] CRITERIA Yes No 1. The patient lacks Irish language fluency or cannot understand the consent form/study procedures [] [x] 2. The patient is [] [x] 3. The patient has a BMI >45 [] [x] 4. The patient has undergone previous hiatal hernia repair [] [x] 5. The patient will undergo paraesophageal hernia repair with a concurrent bariatric procedure to reduce stomach volume [] [x] [facility] 04-29-2024 History of Present illness Narrative [...] blinded, parallel group trial IRB NO.: #[id number] VAN LOADER: Pa Prakash MD COORDINATOR/Research Nurse/Supervisor Mails: Abdelrahman He MD Phone/email: [phone], [email or web address] Consenting was performed in person [...] CRITERIA Yes No 1. The patient lacks Irish language fluency or cannot understand the consent form/study procedures [] [x] 2. The patient is [] [x] 3. The patient has a BMI >45 [] [x] 4. The patient has undergone previous hiatal hernia repair [] [x] 5. The patient will undergo paraesophageal hernia repair with a concurrent bariatric procedure to reduce stomach volume [] [x] [facility] - HISTORY AND PHYSICAL [...] MD General Surgery documented in this encounter [facility] 04-29-2024 Note HNO ID: [id number] Author: YAN MOSER, ? Service: ? Author Type: Physician Type: Progress Notes Filed: 04/29/2024 12:10 Note Text: [facility] - HISTORY AND [...] UGI reviewed and uploaded. Large Type III [facility]. ASSESSMENT/PLAN: chani Boss is a [...] Consents obtained Yan Moser MD General Surgery [facility] 04-29-2024 Nurse Note What is the reason for your visit today? Consult Who is your referring physician? Dafne Spears Are you having poor oral intake? YES Have you had unintentional weight loss of 15 lbs/7 Kg in the last 3-6 months? NO Bowels: soft, more frequent Wound: none Temperature: No Drains: No [facility] 04-29-2024 Nurse Note What is the reason for your visit today? Consult Who is your referring physician? Dafne Spears Are you having poor oral intake? YES Have you had unintentional weight loss of 15 lbs/7 Kg in the last 3-6 months? NO Bowels: soft, more frequent Wound: none Temperature: No Drains: No documented in this encounter [facility] 04-22-2024 Telephone encounter Note Spoke with PT she state no prior surgeries [facility] 04-22-2024 Miscellaneous Notes Spoke with PT she state no prior surgeries documented in this encounter [facility] 04-11-2024 History of Present illness Narrative Images [...] No history of alcohol/substance abuse. Reformed smoker. [place] language Irish. Completed high school education as well as some college. Described self as a C student. 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 Motor/Speed of Processing: Left-handed. Extractions Technician strength 31st %ile with left-hand, 18th %ile [...] Learning of a word list 58th %ile (5-0-85-10-12), delayed recall 50th %ile. Recognition discriminability 69th [...] Please contact me with any questions at [phone]. documented in this encounter [facility] 03-27-2024 Note Endoscopic Procedure Report - Other Patient: SHEY BOSS Age: 73 years Sex: Female : 1950 Associated Diagnoses: None Author: Dafne Spears MD Preoperative Information Indication for procedure and [...] 1 tab, Oral, Daily Flonase 0.05 mg/inh [place]: 2 spray(s), Nasal, Daily, Refill(s) 0, Dry [...] a day (at bedtime) Flonase 0.05 mg/inh [place] 2 spray(s), Nasal, Daily losartan 25 mg [...] All Problems HTN (hypertension) / SNOMED CT 1388613797 / Confirmed Chronic obstructive pulmonary disease / SNOMED CT 36541340 / Confirmed Insomnia / SNOMED CT 802892780 / Confirmed Seasonal allergic rhinitis / SNOMED CT 653361824 / Confirmed Dyslipidemia / SNOMED CT 6106128681 / Confirmed BMI 39.0-39.9,adult / SNOMED CT 736930838 / Confirmed Morbid obesity / SNOMED CT 324420288 / Confirmed GERD (gastroesophageal reflux disease) / SNOMED CT 949601813 / Confirmed Hiatal hernia / SNOMED CT 215637706 / Confirmed EDWIN (obstructive sleep apnea) / SNOMED CT 560825101 / Confirmed Lower extremity edema / SNOMED CT 700157097 / Confirmed TIA (transient ischemic attack) / SNOMED CT 634959897 / Confirmed Screening for malignant neoplasm of colon / SNOMED CT 180720084 / Confirmed Dysphagia / SNOMED CT 90560399 / Confirmed Histories Past Medical History: Resolved Hernia (478857507): Resolved. Sleep apnea (808479943): Resolved. Family History: Father Alcoholism Primary malignant neoplasm of lung COPD Mother Cardiac arrest Alzheimer's disease Procedure history: Colonoscopy (057239658) on 10/13/2023 at 73 Years. ORIF - Open reduction of fracture of ankle with internal fixation ([id number]). Meniscal repair (067265898). Tonsillectomy (158842011). Hand tendon repaired (213147249). Social History Social & Psychosocial Habits Alcohol [...] Plan Impression: DYSPHAGIA Plan: -EGD [facility] Comment on above: Result Comment: mary anne g folder Electronically Signed By: Yovanny OLIVO, Dafne Torres\.br\Date and Time Signed: 03/20/24 [...] No history of alcohol/substance abuse. Reformed smoker. [place] language Irish. Completed high school education as well as some college. Describes itself as a C student. 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 Single, never , no children. Resides with her niece and boyfriend. MEDICAL HISTORY/MEDICATION: Past Medical History: Diagnosis Date Anxiety 08/2023 At high risk for falls Benign essential hypertension (CMS/HCC) Bilateral primary osteoarthritis of knee Chronic bilateral low back pain with left-sided sciatica Chronic insomnia COPD, mild (CMS/HCC) Dyslipidemia (CMS/HCC) Edema of extremities Encounter for long-term (current) use of medications Fracture of distal end of fibula, sequela Ganglion cyst of flexor tendon sheath of finger, left Hiatal hernia with gastroesophageal reflux disease without esophagitis Memory loss Morbid obesity with body mass index (BMI) of 40.0 to 49.9 (CMS/HCC) EDWIN (obstructive sleep apnea) Osteopenia of lumbar spine Painful orthopaedic hardware (HCC) (CMS/HCC) Postmenopausal Seasonal allergic rhinitis due to pollen [...] Please contact me with any questions at [phone]. documented in this encounter [facility] 03-20-2024 Hospital Discharge instructions Patient Education 03/20/2024 [...] Follow these instructions at home: Medicines Take codx-lzg-pkyrxwn and prescription medicines only as told by [...] or drinks. ?Garlic or onions. ?Spicy foods. ?[place] fruits. ?Tomato-based foods. ?Fatty or fried foods. [...] provider. Document Revised: 01/09/2023 Document Reviewed: 01/09/2023 [employer] Patient Education 2023 [employer]. 03/20/2024 13:07:56 Gastritis, Adult, Dbwc-ob-Sukb Gastritis, Adult Gastritis is irritation and swelling [...] Follow these instructions at home: Medicines Take zikp-rpy-mwvtnkr and prescription medicines only as told by [...] provider. Document Revised: 10/30/2021 Document Reviewed: 10/30/2021 [employer] Patient Education 2023 [employer]. 03/20/2024 13:07:48 Hiatal Hernia Hiatal Hernia A [...] reduce GERD symptoms. Medicines. These may include: ?Vbqi-guf-cclxxlf antacids. ?Medicines that make your stomach empty [...] may include: ?Fatty foods, like fried foods. ?[place] fruits, like oranges or lemon. ?Other foods [...] Do not drink alcohol. General instructions Take kcjc-uih-pcefszy and prescription medicines only as told by [...] provider. Document Revised: 08/23/2022 Document Reviewed: 08/23/2022 [employer] Patient Education 2023 [employer] 03/20/2024 13:07:46 Endoscopy, Care After Procedure [facility] ([facility]) Endoscopy Care After Procedure Please read the [...] Document Re-Released: 12/18/2006 ExitCare Patient Information 2009 [employer]. Follow Up Care 02/26/2024 09:52:05 With:Yovanny OLIVO, SENAIT Sifuentes, [facility] Address: When: Unknown Comments:Call for any problems. Office will call to schedule follow up appointment [facility] 03-20-2024 Evaluation + Plan note Future Scheduled TestsXR Esophagus 03/20/24 [facility] 03-20-2024 Note Patient Education - Text Endoscopy [...] Document Re-Released: 12/18/2006 ExitCare? Patient Information ?2009 [employer]. Gastroenterology Hiatal Hernia A hiatal hernia occurs [...] symptoms. ? Medicines. These may include: ? Ufxk-hsg-rwprtud antacids. ? Medicines that make your stomach [...] pressu (more content not included)... [facility] 03-20-2024 Note Endoscopic Procedure Report - Other Patient: SHEY BOSS Age: 73 years Sex: Female : 1950 Associated Diagnoses: None Author: Dafne Spears MD Pre-Procedure Procedure Date 03/20/2024 12:54:00 . Procedure Type: Esophagogastroduodenoscopy with biopsy. Procedure provider Performed by Dafne Spears MD. Current history and physical Documented on [...] images: Rec1_hd_video____[id number]. jpg Rec1_hd_video___35_581. jpg Rec1_hd_video___25_745. jpg Rec1_hd_video____15_326. jpg Rec1_hd_video___14_566. jpg Rec1_hd_video____01_833. jpg . Post-Procedure [...] is indicated, will be ordered [facility] Comment on above: Result Comment: Elec tronically Signed By: Yovanny OLIVO, Dafne Torres\.br\Date and Time Signed: 03/20/24 12:58 EDT Other Comment: Samreen dueñas Attachment - attachment storage system not supported [id number] Can be viewed in source systemMissing Attachment - attachment storage system not supported [id number] Can be viewed in source systemMissing Attachment - attachment storage system not supported [id number] Can be viewed in source systemMissing Attachment - attachment storage system not supported [id number] Can be viewed in source systemMissing Attachment - attachment storage system not supported 1699790 Can be viewed in source systemMissing Attachment - attachment storage system not supported [id number] Can be viewed in source system 03-20-2024 Note Endoscopic Procedure Report - Other Patient: SEHY BOSS Age: 73 years Sex: Female : 1950 Associated Diagnoses: None Author: Dafne Spears MD Preoperative Information Indication for procedure and [...] 1 tab, Oral, Daily Flonase 0.05 mg/inh [place]: 2 spray(s), Nasal, Daily, Refill(s) 0, Dry [...] a day (at bedtime) Flonase 0.05 mg/inh [place] 2 spray(s), Nasal, Daily losartan 25 mg [...] All Problems HTN (hypertension) / SNOMED CT 7984423567 / Confirmed Chronic obstructive pulmonary disease / SNOMED CT 74887115 / Confirmed Insomnia / SNOMED CT 249076066 / Confirmed Seasonal allergic rhinitis / SNOMED CT 699355712 / Confirmed Dyslipidemia / SNOMED CT 3785952980 / Confirmed BMI 39.0-39.9,adult / SNOMED CT 983631058 / Confirmed Morbid obesity / SNOMED CT 445467672 / Confirmed GERD (gastroesophageal reflux disease) / SNOMED CT 570535655 / Confirmed Hiatal hernia / SNOMED CT 678134485 / Confirmed EDWIN (obstructive sleep apnea) / SNOMED CT 748079010 / Confirmed Lower extremity edema / SNOMED CT 106135484 / Confirmed TIA (transient ischemic attack) / SNOMED CT 054040247 / Confirmed Screening for malignant neoplasm of colon / SNOMED CT 883856150 / Confirmed Dysphagia / SNOMED CT 58149951 / Confirmed Histories Past Medical History: Resolved Hernia (309430104): Resolved. Sleep apnea (792304258): Resolved. Family History: Father Alcoholism Primary malignant neoplasm of lung COPD Mother Cardiac arrest Alzheimer's disease Procedure history: Colonoscopy (163495532) on 10/13/2023 at 73 Years. ORIF - Open reduction of fracture of ankle with internal fixation ([id number]). Meniscal repair (853093973). Tonsillectomy (432129495). Hand tendon repaired (830898802). Social History Social & Psychosocial Habits Alcohol [...] Plan Impression: DYSPHAGIA Plan: -EGD [facility] Comment on above: Result Comment: Elec tronically Signed By: Yovanny OLIVO, Dafne Torres\.br\Date and Time Signed: 03/20/24 12:47 EDT 03-07-2024 History of Present illness Narrative Images from the original note were not included. Chief Complaint Patient presents with Memory Loss Dysphagia Subjective Shey Boss, 73 y.o., female, was referred back to Dr Fitzgerald for memory loss and dysphagia from Dr Latrell Jack. She is here by herself today. She is unsure of when her memory started declining. She does think it was within the past year. She admits short term memory troubles. She will be told something in the morning and forget by the evening. Sometimes it will come back to her. She states she almost forgot to take her great-granddaughter to work last night, but then she was reminded. She will occasionally have trouble word finding. She was forgetting to pay her bills but she did set them up on auto pay. She would just put them someplace and would forget they needed pain. She denies any issues with taking medications or other ADLs. She lives with her niece and her boyfriend. She retired and she moved in with them as she had no where else to go. She owns the house and they live with her. They are unable to work. Niece had brain issues also with 38 surgery's on her feet. Her boyfriend has a lot of different things wrong with him as he was not taken care of as a child. She will occasionally feel like there is a problem with her driving but not sure. She denies getting lost while driving. She has not had any accidents. She was just started on aricept. She is taking and tolerating the medication well. She admits dysphagia. She does have an endoscopy scheduled for 03/20/2024 to see if her hernia is the issue. She does have issues speaking due to this. She states that her throat will get raspy and she has to clear her throat. She does have EDWIN and she is using a PAP machine. She does not like wearing it. She cannot lay down without it because she cannot breathe without it. She is averaging 7 hours and 51 minutes of sleep per night. She states over 6 hours of sleep is rare for her. She has issues staying asleep and falling asleep. She is getting some exercise. Past Medical History: Diagnosis Date Anxiety 08/2023 At high risk for falls Benign essential hypertension (CMS/HCC) Bilateral primary osteoarthritis of knee Chronic bilateral low back pain with left-sided sciatica Chronic insomnia COPD, mild (CMS/HCC) Dyslipidemia (CMS/HCC) Edema of extremities Encounter for long-term (current) use of medications Fracture of distal end of fibula, sequela Ganglion cyst of flexor tendon sheath of finger, left Hiatal hernia with gastroesophageal reflux disease without esophagitis Memory loss Morbid obesity with body mass index (BMI) of 40.0 to 49.9 (CMS/HCC) EDWIN (obstructive sleep apnea) Osteopenia of lumbar spine Painful orthopaedic hardware (HCC) (CMS/HCC) Postmenopausal Seasonal allergic rhinitis due to pollen Sleep apnea TIA (transient ischemic attack) Past Surgical History: Procedure Laterality Date ANKLE SURGERY Right 03/02/2020 Right displaced fibular malleolus fracture open reduction and internal fixation, sub hardware removal 09/10/2021 MOUTH SURGERY Family History Problem Relation Name Age of Onset Arthritis Mother Karli Patten Alzheimer's disease Mother Karli Patten Heart attack Mother Karli Patten Cancer Father Diabetes Father's Brother Parkinsonism Sibling Alzheimer's disease Father's Sister Katty Hoff Social History Tobacco Use Smoking status: Former Current packs/day: 0.00 Average packs/day: 1.2 packs/day for 70.7 years (84.0 ttl pk-yrs) Types: Cigarettes Start date: 07/10/1967 Quit date: 01/08/2012 Years since quittin.1 Smokeless tobacco: Never Substance Use Topics Alcohol use: Yes Alcohol/week: 4.0 standard drinks of alcohol Types: 2 Cans of beer, 2 Shots of liquor per week Comment: Caffeine: 2-3 cups per day Allergies: Patient has no known allergies. General: No fever or chills HEENT: No nasal congestion or runny nose Pulmonary: No shortness of breath or cough Cardiovascular: No chest pain or palpitations GI: No nausea or vomiting : No dysuria or hematuria Musculoskeletal: No new aches or pains or muscle weakness Infectious: no recurrent fevers or infections Dermatologic: No rashes or skin lesions Neurologic: No new headaches or dizziness Vitals: 03/07/24 1121 BP: 146/88 Pulse: 84 SpO2: 94% Body mass index is 44.46 kg/m . weight: 251 lb Neurologic exam: General: Normal body habitus, cooperative, pleasant Mental status: Awake, alert to person, place and time. Recent and remote memory are intact. Attention and concentration are normal. Fund of knowledge is appropriate for level of education. HEENT: NC/AT Cranial nerves: CN II: Visual lares full to confrontation. No loss of vision CN III, IV, : pupils equal round and reactive to light. Extraocular movements intact. No ptosis present. CN V: Facial sensation is normal. CN VII: Full and symmetric facial movement. CN VIII: Hearing is normal CN IX and X: Palate elevates symmetrically. CN XI: Shoulder shrug is normal bilaterally. CN XII: Tongue is midline without atrophy or fasciculation. Speech: Clear and fluent no aphasia or dysarthria Pronator drift: Negative bilateral upper extremity Coordination: Intact, no signs of dysmetria Good finger to nose and rapid alternating movements Sensory: Sensation is intact to light, temperature and vibratory touch throughout four extremities. Pinprick intact in all four extremities. Motor: LUE 5/5 RUE 5/5 LLE 5/5 RLE 5/5 Tone: Physiologic, no tremor, bradykinesia or rigidity DTR: Bilateral Biceps 2/4 Bilateral BR 2/4 Bilateral Patellar 1/4 No spasticity Gait: Normal to casual gait Romberg's Positive Review and summary of old records: Assessment/Plan 73-year-old female with a history of obstructive sleep apnea who is now coming in complaining of memory loss. She is alone therefore there was no one to help assist with her history. She however give a fairly good history. At this point in time I suspect she may have some underlying mild cognitive impairment but would like to rule out early signs of dementia. She does need a full dementia workup. Patient is compliant with her CPAP machine using 100 percent of the time with 93 percent of the time greater than 4 hours average nightly usage of 7 hours and 51 minutes and residual AHI of 0.5. At this time her sleep appears to be controlled. Plan EEG to assess brain waves. MRI brain without to assess for structural lesions or strokes that could cause memory loss. Labwork to assess for reversible causes of memory loss. Brain exercises. Cardiovascular exercise. Mediterranean diet. 8 hours of sleep. 12 hour fasting through the night if able. MMSE 28/30 Neuro psych testing The patient was counseled on the risks of stroke, [place], and sudden with EDWIN, along with the need for compliance with the CPAP/BiPAP treatment. The patient was counseled on proper sleep hygiene and adequate hours of sleep. The diagnosis was all discussed with the patient. All questions were answered and they agreed with the treatment plan. Patient will call if there are any new issues or questions. Pt has been fully educated on their diagnosis, treatment options, follow up plan, and return instructions Return to clinic: documented in this encounter [facility] 10-16-2023 Note [id number] [facility] 10-13-2023 Evaluation + Plan note Extrac clarke from: Title:ANES Post-operative Note - General Author: Shaji Bethea Jr., DO Date:10/13/23 Plan Transfer/Discharge: Transfer/Discharge Discharge when meets criteria ( From PACU to Ambulatory Surgery Unit, and To home ). Extracted from: Title:ANES Pre-operative Note - Endo Author:Shaji Mendoza Jr., DO Date:10/13/23 Plan [place] [employer] Anesthesiologists (ASA) physical status classification: Class III. Anesthetic Preoperative Plan: Anesthesia General, and -TIVA. [facility]04-05-2024 Hospital Discharge instructions Patient Education 10/13/2023 09:31:42 Colonoscopy, Care After Surgery Salam (CUSTOM) Colonoscopy Care After Surgery Please read the instructions outlined below and refer to this sheet in the next few weeks. These discharge instructions provide you with general information [facility] Your doctor may also give you [...] Up Care 09/12/2023 10:17:58 With:Pa WEBB Address: [address] [place] [address] Business (1) When: only if needed [facility]04-05-2024 NotePatient: SHEY BOSS Age: 73 years Sex: Female : 1950 Associated Diagnoses: None Author: Pa WEBB MD Subjective no changes to H & PFCleveland [facility] Medina HospitalComment on above:Result Comment: Electronically Signed By: Pa WEBB MD\.br\Date and Time Signed: 10/13/23 09:45 [id number] NoteChief Complaint consultation for colonoscopy HPI Staff [...] a day (at bedtime) Flonase 0.05 mg/inh [place], 2 spray(s), Nasal, Daily losartan 25 mg [...] Alzheimer's di (more content not included)...[facility] Comment: Electronically Signed By: TRACEY OLIVO, Pa Lynn\Date and Time Signed: 09/12/23 10:16 [id number] History of Present illness Narrative* Latrell Jack [...] [id number] NoteEXAMINATION: XR CHEST 1 V HISTORY: SHORTNESS [...] Electronically authenticated by: MEHNAZ SANTIAGO Date: 2021-11-02 16:39[facility]03-04-2022 NotePROCEDURE: XR ANKLE RT MIN 3 [...] Electronically authenticated by: WILLARD ANAND Date: 2021-09-10 09:02[facility]03-04-2022 NotePROCEDURE: XR ANKLE RT 2V COMPARISON: 03/02/2020. HISTORY: Pain FINDINGS: 35 seconds of fluoroscopy. 5 fluoroscopic images Interval removal of internal fixation hardware. Components of 2 fractured screws across the tibiofibular syndesmosis remain on image #5 IMPRESSION: Removal of lateral fibular plate and screws Electronically authenticated by: WILLARD ANAND Date: 2021-09-10 08:30[facility] Future Appointments Appointment Date:03/20/2024 12:15:00 PM Scheduled Provider: Location:[facility] Appointment Type:Surgery [facility] Evaluation note* Diagnosis [...] 40.0-44.9, adult (Z68.41) documented in this encounter [facility]* Diagnosis Memory loss- Primary Word finding difficulty EDWIN on CPAP Other insomnia Other chronic pain Generalized anxiety disorder (CMS/HCC) Generalized anxiety disorder Severe episode of recurrent major depressive disorder, 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) documented in this encounter [facility]Evaluation [facility]* Diagnosis Paraesophageal hernia- Primary Diaphragmatic hernia without mention of obstruction or gangrene [facility] Preoperative examination- Primary Preoperative examination, unspecified Paraesophageal hernia Diaphragmatic hernia without mention of obstruction or gangrene Abnormal results of liver function studies Nonspecific abnormal results of liver function study Abnormal coagulation profile [facility] Diagnosis Essential hypertension, benign (CMS/HCC)- Primary [...] in adult (CMS/HCC) [facility] Essential hypertension, benign (CMS/HCC)- Primary [...] of 38.0 to 38.9 in adult (CMS/HCC) Essential hypertension, benign (CMS/HCC) Essential hypertension, benign Hiatal hernia with gastroesophageal reflux disease without esophagitis [facility] Diagnosis Memory loss- Primary Word finding difficulty EDWIN on CPAP Other insomnia Other chronic pain Generalized anxiety disorder (CMS/HCC) Generalized anxiety disorder [facility]* Diagnosis Memory loss- Primary 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CMS/HCC) Senile dementia, uncomplicated Mild cognitive impairment Mild cognitive impairment, so stated EDWIN (obstructive sleep apnea) Obstructive sleep apnea (adult) (pediatric) documented [facility]* Diagnosis Essential hypertension, benign (CMS/HCC)- [...] of 38.0 to 38.9 in adult (CMS/HCC) Memory loss- Primary Severe episode of recurrent major depressive disorder, 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) Generalized anxiety disorder (CMS/HCC) Generalized anxiety disorder EDWIN on CPAP Other chronic pain Other insomnia [facility] Diagnosis Pre-op evaluation- Primary Preoperative examination, unspecified Preoperative examination Preoperative examination, unspecified Paraesophageal hernia Diaphragmatic hernia without mention of obstruction or gangrene Chronic obstructive pulmonary disease, unspecified COPD type (HCC) CHENEY (dyspnea on exertion) Other dyspnea and respiratory abnormality Former smoker Personal history of tobacco use, presenting hazards to health EDWIN (obstructive sleep apnea) Obstructive sleep apnea (adult) (pediatric) Hypertension, unspecified type Gastroesophageal reflux disease, unspecified whether esophagitis present Dyslipidemia Other and unspecified hyperlipidemia TIA (transient ischemic attack) Unspecified transient cerebral ischemia Abnormal MRI of head Nonspecific (abnormal) findings on radiological and other examination of skull and head Memory loss Chronic back pain, unspecified back location, unspecified back pain laterality Primary insomnia Persistent disorder of initiating or maintaining sleep Preoperative examination Preoperative examination, unspecified Paraesophageal hernia Diaphragmatic hernia without mention of obstruction or gangrene * Assessment & Plan Note - Jamil Delacruz PA-C - 07/23/2024 1:51 PM EST Associated Problem(s): Obesity -Body mass index is 37.45 kg/m . * Assessment & Plan Note - Jamil Delacruz PA-C - 07/23/2024 1:50 PM EST Associated Problem(s): Primary insomnia -Managed on Ambien * Assessment & Plan Note - Jamil Delacruz PA-C - 07/23/2024 1:49 PM EST Associated Problem(s): Chronic back pain -Follows OP with pain management * Assessment & Plan Note - Jamil Delacruz PA-C - 07/23/2024 1:49 PM EST Associated Problem(s): Memory loss -Follows OP with PCP -Managed on donepezil * Assessment & Plan Note - Jamil Delacruz PA-C - 07/23/2024 1:47 PM EST Associated Problem(s): Abnormal MRI of head -03/15/24 MRI brain Mild chronic microvascular ischemic and involutional changes. -Managed on aspirin, please note last dose was 07/22/24 PM * Assessment & Plan Note - Jamil Delacruz PA-C - 07/23/2024 1:45 PM EST Associated Problem(s): TIA (transient ischemic attack) -Noted in EMR however patient denies * Assessment & Plan Note - Jamil Delacruz PA-C - 07/23/2024 1:45 PM EST Associated Problem(s): Dyslipidemia -Continue statin * Assessment & Plan Note - Jamil Delacruz PA-C - 07/23/2024 1:45 PM EST Associated Problem(s): GERD (gastroesophageal reflux disease) -Managed on PPI, Pepcid * Assessment & Plan Note - Jamil Delacruz PA-C - 07/23/2024 1:44 PM EST Associated Problem(s): HTN (hypertension) -Managed on losartan -BP today 152/73 -EKG reviewed, NSR * Assessment & Plan Note - Jamil Delacruz PA-C - 07/23/2024 1:43 PM EST Associated Problem(s): EDWIN (obstructive sleep apnea) -Compliant with CPAP * Assessment & Plan Note - Jamil Delacruz PA-C - 07/23/2024 1:42 PM EST Associated Problem(s): Former smoker -Smoked from age [age] (quit in 2011), 1/2-2 PPD * Assessment & Plan Note - Jamil Delacruz PA-C - 07/23/2024 1:42 PM EST Associated Problem(s): Chronic obstructive pulmonary disease (HCC) -Continue inhalers, has not needed to use albuterol in the past 3-4 months -SpO2 99% on RA -Follows OP with PCP -Patient in NAD -Admits to chronic exertional dyspnea, not new or worsening -Former heavy smoker -CXR pending documented in this [facility] [place] [facility] Diagnosis Pre-op evaluation- Primary Preoperative examination, unspecified Preoperative examination Preoperative examination, unspecified Paraesophageal hernia Diaphragmatic hernia without mention of obstruction or gangrene Chronic obstructive pulmonary disease, unspecified COPD type (HCC) CHENEY (dyspnea on exertion) Other dyspnea and respiratory abnormality Former smoker Personal history of tobacco use, presenting hazards to health EDWIN (obstructive sleep apnea) Obstructive sleep apnea (adult) (pediatric) Hypertension, unspecified type Gastroesophageal reflux disease, unspecified whether esophagitis present Dyslipidemia Other and unspecified hyperlipidemia TIA (transient ischemic attack) Unspecified transient cerebral ischemia Abnormal MRI of head Nonspecific (abnormal) findings on radiological and other examination of skull and head Memory loss Chronic back pain, unspecified back location, unspecified back pain laterality Primary insomnia Persistent disorder of initiating or maintaining sleep Pre-op evaluation Preoperative examination, unspecified Chronic obstructive pulmonary disease, unspecified COPD type (HCC) CHENEY (dyspnea on exertion) Other dyspnea and respiratory abnormality documented [facility] this encounter [facility]* Diagnosis Essential hypertension, benign (CMS/HCC)- Primary [...] of 38.0 to 38.9 in adult (CMS/HCC) Primary insomnia Persistent disorder of initiating or maintaining sleep documented in this encounter [facility]* Diagnosis Essential hypertension, benign (CMS/HCC)- [...] obesity due to excess calories (CMS/HCC) Dyslipidemia ([facility]/HCC) Other and unspecified hyperlipidemia Encounter for long-term (current) use of medications Encounter for long-term (current) use of other medications Body mass index [BMI] 40.0-44.9, adult (Z68.41) Essential hypertension, benign (CMS/HCC)- Primary Essential hypertension, benign Dysphagia, unspecified type 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[facility]/HCC) Senile dementia, uncomplicated Chronic obstructive pulmonary disease, [...] (BMI) of 38.0 to 38.9 in adult ([facility]) Primary insomnia- Primary Persistent disorder of initiating or maintaining sleep documented in this encounter [facility]* Diagnosis Pre-op evaluation- Primary Preoperative examination, unspecified Preoperative examination Preoperative examination, unspecified Paraesophageal hernia Diaphragmatic hernia without mention of obstruction or gangrene Chronic obstructive pulmonary disease, unspecified COPD type ([facility]) CHENEY (dyspnea on exertion) Other dyspnea and respiratory abnormality Former smoker Personal history of tobacco use, presenting hazards to health EDWIN (obstructive sleep apnea) Obstructive sleep apnea (adult) (pediatric) Hypertension, unspecified type Gastroesophageal reflux disease, unspecified whether esophagitis present Dyslipidemia Other and unspecified hyperlipidemia TIA (transient ischemic attack) Unspecified transient cerebral ischemia Abnormal MRI of head Nonspecific (abnormal) findings on radiological and other examination of skull and head Memory loss Chronic back pain, unspecified back location, unspecified back pain laterality Primary insomnia Persistent disorder of initiating or maintaining sleep Postoperative visit- Primary Other specified aftercare following surgery [facility] this [facility] Diagnosis Essential hypertension, benign (CMS/HCC)- Primary [...] hypertension, benign Dysphagia, unspecified type 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CMS/[facility]) Senile dementia, uncomplicated Chronic obstructive pulmonary disease, [...] (BMI) of 38.0 to 38.9 in adult ([facility]) Medicare annual wellness visit, subsequent- Primary Prediabetes Other abnormal glucose Dyslipidemia (CMS/[facility]) Other and unspecified hyperlipidemia Encounter for long-term (current) use of medications Encounter for long-term (current) use of other medications Essential hypertension, benign (CMS/HCC) Essential hypertension, benign Class 2 severe obesity due to excess calories with serious comorbidity and body mass index (BMI) of 36.0 to 36.9 in adult ([facility]) Chronic obstructive pulmonary disease, unspecified COPD type (CMS/HCC) 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CMS/[facility]) Senile dementia, uncomplicated documented [facility] Narrative No data available for this section [facility] No data available for this section [facility] Progress note No data available for this section [facility] (n[facility]ative)* Consultation (Routine) - Pending Review Specialty Diagnoses / Procedures Referred By Contac t Referred To Contact General Surgery Diagnoses Screening for colon cancer Procedures GA OFFICE/OUTPATIENT NEW HIGH MDM 60 MINUTES Latrell Jack MD [address] [place] [address] Pa Webb MD [address] [place] [address] Referral ID Status Reason Start Date Expiration Date Visits Requested Visits Authorized [id number] Pending Review Specialty Services Required 08/11/2023 02/07/2024 [...] Advanced Directives Records Found Hospital Course Note [facility] SURGERY Clinical Discharge Summary PERSON INFORMATION Name SHEY BOSS Age 68 Years 52 Sex FEMALE Language Irish PCP LATRELL JACK Marital Status Single Med Service Ambulatory Surgery Acct# Arrival 02/04/19 11:44:00 Visit Reason SURGERY - RELEASE TRIGGER FINGER LEFT RING FINGER AND E/O CYST LEFT RING FINGER Acuity LOS 012 05:38 Address: [address] [place] [id number] Comment: PROVIDER INFORMATION VITALS INFORMATION Vital Sign [...] Referred By Contac t Referred To Contact CT IMAGING Diagnoses Postoperative visit Procedures CT CHEST WO IVCON DIAGNOSTIC COMPUTED TOMOGRAPHY THORAX W/O CNTRST Katarzyna Snyder APRN.COIL BUILDER [address] [place] [address] [facility] [place] [address] Referral ID Status Reason Start Date Expiration Date Visits Requested Visits Authorized [id number] New Request Auto-Generat ed Referral 08/07/2025 09/06/2025 1 1 Specialty Diagnoses / Procedures Referred By Contac t Referred To Contact Radiology Diagnoses Memory loss Procedures MR brain wo contrast Diomedes Fitzgerald, [address] [place] [address] Referral ID Status Reason Start Date Expiration Date V isits Requested Visits Authorized [id number] Pending Review 03/07/2024 09/03/2024 1 1 Specialty Diagnoses / Procedures Referred By Contac t Referred To Contact Diagnoses Preoperative examination Paraesophageal hernia Procedures REFER TO [facility] - PREOPERATIVE OPTIMIZATION OFFICE/OUTPATIENT [facility] 60 MINUTES Katarzyna Carter, LISSETTE.COIL BUILDER [address] [place], [place] [id number] Referral ID Status Reason Start Date Expiration Date Visits Requested Visits Authorized [id number] Authorized PCP Requested Referral 05/04/2025 1 1 Specialty Diagnoses / Procedures Referred By Contac t Referred To Contact [facility] Diagnoses Preoperative examination Paraesophageal hernia Procedures ECG COMPLETE ECG ROUTINE ECG W/LEAST 12 LDS W/I&R Katarzyna Carter APRN.COIL BUILDER [address] [address] [facility] [place] [address] Referral ID Status Reason Start Date Expiration Date Visits Requested Visits Authorized [id number] New Request Auto-Generat ed Referral 4 05/04/2025 1 1 Additional Source Comments INFORMATION SOURCE (unrecogn ized section and content) DATE CREATED AUTHOR 02/17/2019 [facility] DATE CREATED AUTHOR AUTHOR'S ORGANIZ ATION 08/03/2022 [facility] [facility] DATE CREATED AUTHOR AUTHOR'S ORGANIZ ATION 03/28/2024 [facility] DATE CREATED AUTHOR AUTHOR'S ORGANIZ ATION 03/30/2024 [facility] DATE CREATED AUTHOR AUTHOR'S ORGANIZ ATION 04/04/2024 [facility] DATE CREATED AUTHOR AUTHOR'S ORGANIZ ATION 07/03/2024 [facility] DATE CREATED AUTHOR AUTHOR'S ORGANIZ ATION 08/12/2024 [facility] DATE CREATED AUTHOR AUTHOR'S ORGANIZ ATION 08/28/2024 [facility] dical Specialists EPIC Care Teams (unrecognized sec tion and content) Vacuum Caster Relationship Specialty Start Date End Date Latrell Jack MD [address] [place] [address] PCP - General Family Medicine 08/05/23 Vacuum Caster Relationship Specialty Start Date End Date Latrell Jack MD [address] [place] [address] PCP - General Family Medicine 08/05/23 Vacuum Caster Relationship Specialty Start Date End Date Latrell Jack MD [address] [place] [address] PCP - General Family Medicine 08/05/23 Vacuum Caster Relationship Specialty Start Date End Date Dafne Spears MD [address] [place] [phone] Internal Medicine 04/02/24 Vacuum Caster Relationship Specialty Start Date End Date Dafne Spears MD [address] [place] [phone] Internal Medicine 04/02/24 Vacuum Caster Relationship Specialty Start Date End Date Dafne Spears MD [address] [place] [phone] Internal Medicine 04/02/24 Vacuum Caster Relationship Specialty Start Date End Date Latrell Jack MD [address] [place] [address] PCP - General Family Medicine 08/05/23 Vacuum Caster Relationship Specialty Start Date End Date Latrell Jack MD [address] [place] [address] PCP - General Family Medicine 08/05/23 Vacuum Caster Relationship Specialty Start Date End Date Latrell Jack MD [address] [place] [place] [address] PCP - General Family Medicine 08/05/23 Diomedes Fitzgerald DO [address] [place] [address] Referring Physician Neurology 05/30/24 Vacuum Caster Relationship Specialty Start Date End Date Latrell Jack MD [address] [place] [place] [address] PCP - General Family Medicine 08/05/23 Vacuum Caster Relationship Specialty Start Date End Date Latrell Jack MD [address] [place] [address] PCP - General Family Medicine 08/05/23 Vacuum Caster Relationship Specialty Start Date End Date Latrell Jack MD [address] [place] [address] PCP - General Family Medicine 08/05/23 Vacuum Caster Relationship Specialty Start Date End Date Latrell Jack MD [address] [place] [address] PCP - General Family Medicine 08/05/23 Vacuum Caster Relationship Specialty Start Date End Date Latrell Jack MD [address] [place] [address] PCP - General Family Medicine 08/05/23 Vacuum Caster Relationship Specialty Start Date End Date Latrell Jack MD [address] [place] [address] PCP - General Family Medicine 08/05/23 Diomedes Fitzgerald DO [address] [place] [address] Referring Physician Neurology 05/30/24 Vacuum Caster Relationship Specialty Start Date End Date Latrell Jack MD [address] [place] [address] PCP - General Family Medicine 08/05/23 Diomedes Fitzgerald DO [address] [place] [address] Referring Physician Neurology 05/30/24 Vacuum Caster Relationship Specialty Start Date End Date Latrell Jack MD [address] [place] [address] PCP - General Family Medicine 08/05/23 Diomedes Fitzgerald DO [address] [place] [address] Referring Physician Neurology 05/30/24 Vacuum Caster Relationship Specialty Start Date End Date Latrell Jack MD [address] [place] [address] PCP - General Family Medicine 07/01/24 Dafne Spears MD [address] [address] Internal Medicine 04/02/24 Vacuum Caster Relationship Specialty Start Date End Date Latrell Jack MD [address] [place] [address] PCP - General Family Medicine 07/01/24 Dafne Spears MD [address] [address] Internal Medicine 04/02/24 Vacuum Caster Relationship Specialty Start Date End Date Latrell Jack MD [address] [place] [address] PCP - General Family Medicine 08/05/23 Diomedes Fitzgerald DO [address] [place], [place] [phone] Referring Physician Neurology 05/30/24 Vacuum Caster Relationship Specialty Start Date End Date Latrell Jack MD [address] [place] [address] PCP - General Family Medicine 08/05/23 Diomedes Fitzgerald DO [address] [place] [address] Referring Physician Neurology 05/30/24 Vacuum Caster Relationship Specialty Start Date End Date Latrell Jack MD [address] [place] [address] PCP - General Family Medicine 07/01/24 Dafne Spears MD [address] [place] [address] Internal Medicine 04/02/24 Vacuum Caster Relationship Specialty Start Date End Date Latrell Jack MD [address] [place] [address] PCP - General Family Medicine 08/05/23 Latrell Jack MD [address] [place] [address] PCP - ACO Reach 08/16/24 Diomedes Fitzgerald DO [address] [place] [address] Referring Physician Neurology 05/30/24 Vacuum Caster Relationship Specialty Start Date End Date Latrell Jack MD [address] [place] [address] PCP - General [facility] 08/05/23 Latrell Jack MD [address] [place] [address] PCP - ACO Reach 08/16/24 Diomedes Fitzgerald DO [address] [place] [address] Referring Physician Neurology 05/30/24 Vacuum Caster Relationship Specialty Start Date End Date Latrell Jack MD [address] [place] [address] PCP - General [facility] Medicine 08/05/23 Latrell Jack MD [address] [place] [address] PCP - ACO Reach 08/16/24 Diomedes Fitzgerald DO [address] [place] [address] Referring Physician Neurology 05/30/24 Reason for Visit (unrecogniz ed section and content) Reason Comments Follow-up 6 m Reason Comments New Patient Evaluation Hiatal Hernia Reason Comments 07.24.24 Cure Lap Paraesophageal H ernia Repair/EGD 4 hours los 1 Reason Comments Follow-up 3 m Reason Onset Date Comments Medication Question 06/13/2024 Reason Comments Memory Loss Dysphagia Specialty Diagnoses / Procedures Referred By Joan t Referred To Contact Neurology Diagnoses 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CMS/HCC) Other dysphagia Procedures GA OFFICE/OUTPATIENT NEW HIGH MDM 60 MINUTES Latrell Jack MD [address] [place] [address] Diomedes Fitzgerald [address] [place] [address] Referral ID Status Reason Start Date Expiration Date V isits Requested Visits Authorized [id number] Closed Specialty Services Required 02/09/2024 08/07/2024 1 1 Reason Comments Memory Loss Specialty Diagnoses / Procedures Referred By Contac t Referred To Contact Diagnoses Preoperative examination Paraesophageal hernia Procedures REFER TO [facility] / [facility] - PREOPERATIVE OPTIMIZATION OFFICE/OUTPATIENT [facility] 60 MINUTES Katarzyna Snyder APRN.[facility] [address], [place] [address] Referral ID Status Reason Start Date Expiration Date V isits Requested Visits Authorized [id number] Closed PCP Requested Referral 05/06/2024 05/04/2025 1 1 Reason Onset Date Comments Med Refill 07/30/2024 Reason Comments Post Op Reason Comments Medicare Annual Wellness Visit Subsequen t wellness Source Comments (unrecognize d section and content) In the event this informatio n is protected by the Federal Confidentiality of Alcohol and Drug Abuse Patient Records regulations: The Federal rules restrict any use of the information to criminally investigate or prosecute any alcohol or drug abuse patient.[facility] the event this information is protected by the Federal Confidentiality of Alcohol and Drug Abuse Patient Records regulations: The Federal rules restrict any use of the information to criminally investigate or prosecute any alcohol or drug abuse patient.[facility] the event this information is protected by the Federal Confidentiality of Alcohol and Drug Abuse Patient Records regulations: The Federal rules restrict any use of the information to criminally investigate or prosecute any alcohol or drug abuse patient.[facility] the event this information is protected by the Federal Confidentiality of Alcohol and Drug Abuse Patient Records regulations: The Federal rules restrict any use of the information to criminally investigate or prosecute any alcohol or drug abuse patient.[facility] the event this information is protected by the Federal Confidentiality of Alcohol and Drug Abuse Patient Records regulations: The Federal rules restrict any use of the information to criminally investigate or prosecute any alcohol or drug abuse patient.[facility] the event this information is protected by the Federal Confidentiality of Alcohol and Drug Abuse Patient Records regulations: The Federal rules restrict any use of the information to criminally investigate or prosecute any alcohol or drug abuse patient.[facility] FOR RECORDS PERTAINING TO PATIENTS WHO ARE [...] THE PRIMARY CLINICAL RECORDS. [facility] [facility]. provides no warranty or guarantee of the accuracy or completeness of information in this document.
--- NOTE | 2024-09-18 09:33 | PM.CN ---
Consult Note: HPI Data of Consult Patient: known to practice within the last 3 years Requesting Physician: Amalia Woodson NP Primary Care Provider: Latrell Mckeon MD Consult Narrative Reason for consult: low back pain Narrative: [id number] who presents for evaluation. chronic low back pain, recent lumbar MRI consistent with lumbar stenosis with NC and lumbar spondylosis, see results below. Pain unresponsive to tylenol, cannot take NSAIDs with hiatal hernia. Mild relief from zonegran 100mg HS without side effects. Has failed to benefit from HEP greater than 6 weeks. Pain today in low back 1/10 increasing to 3/10 with standing walking and long periods of sitting, improved with changing positions. Eduin numbness tingling weakness and loss of bowel/bladder. denies recent falls. now reporting >50% improvement from bilateral L4-5 L5-S1 facet RFA. cc:: CC: Amalia Woodson NP Review of Systems ROS Status of ROS 10 or more systems reviewed and unremarkable except as noted in history and below Musculoskeletal Reports: back pain PFSH PFSH Medical History Osteoarthritis ?M19.90 - Unspecified osteoarthritis, unspecified site (ICD-10) Anxiety ?F41.9 - Anxiety disorder, unspecified (ICD-10) Hiatal hernia ?K44.9 - Diaphragmatic hernia without obstruction or gangrene (ICD-10) Sleep apnea ?G47.30 - Sleep apnea, unspecified (ICD-10) COPD (chronic obstructive pulmonary disease) ?J44.9 - Chronic obstructive pulmonary disease, unspecified (ICD-10) High cholesterol ?E78.00 - Pure hypercholesterolemia, unspecified (ICD-10) HTN (hypertension) ?I10 - Essential (primary) hypertension (ICD-10) Surgical History History of ankle surgery ?Z98.890 - Other specified postprocedural states (ICD-10) History of hand surgery ?Z98.890 - Other specified postprocedural states (ICD-10) History of knee replacement ?Z96.659 - Presence of unspecified artificial knee joint (ICD-10) Meds Home Medications and Allergies Home Medications ?Medication ?Instructions ?Recorded ?Confirmed ?Type aspirin 81 mg tablet,delayed 81 mg PO DAILY 04/16/24 06/24/24 History release (Adult Aspirin Regimen) atorvastatin 40 mg tablet 40 mg PO DAILY 04/16/24 06/24/24 History calcium carbonate (Calcium 500) 500 mg PO BID 04/16/24 06/24/24 History donepezil 5 mg tablet (Aricept) 5 mg PO DAILY 04/16/24 06/24/24 History famotidine 40 mg tablet 40 mg PO DAILY 04/16/24 06/24/24 History fluticasone propionate 50 2 spray intranasal DAILY PRN 04/16/24 06/24/24 History mcg/actuation nasal allergy symptoms spray,suspension (24 Hour Allergy Relief) losartan 50 mg tablet 50 mg PO DAILY 04/16/24 06/24/24 History pantoprazole 40 mg tablet,delayed 40 mg PO BID 04/16/24 06/24/24 History release tiotropium bromide 18 mcg capsule 1 cap inhalation DAILY 04/16/24 06/24/24 History with inhalation device (Spiriva with HandiHaler) vitamin E 268 mg (400 unit) capsule 268 mg PO DAILY 04/16/24 06/24/24 History zolpidem 12.5 mg tablet,extended 12.5 mg PO DAILY 04/16/24 06/24/24 History release,multiphase zonisamide 50 mg capsule 100 mg PO BEDTIME 05/29/24 06/24/24 History Allergies Allergy/AdvReac Type Severity Reaction Status Date / Time No Known Drug Allergies Allergy Verified 06/24/24 07:33 Exam Constitutional Documenting provider has reviewed patient's vital signs: yes Common normals: no apparent distress, oriented x3, healthy appearing, alert and well nourished General appearance: cooperative [facility] Common normals: normocephalic, hearing grossly normal bilaterally and moist oral mucous membranes Head and scalp: normocephalic Eye Common normals: PERRL Pupil: PERRL Neck & C-Spine Common normals: full ROM General: normal visual inspection Chest Common normals: inspection of chest normal Respiratory Common normals: normal respiratory effort, no retractions and no use of accessory muscles Back & Pelvis Lumbar spine/lower back: straight leg raise negative bilaterally; no pain with ROM, no lumbar spinal tenderness, no paraspinal muscle tenderness and no paraspinal muscle spasm Sacroiliac joints: SI joints normal Other: negative facet loading strength 5/5 in BLE sensation intact BLE left SIJ negative mauro(patricks), gaenslens, thigh thrust, compression test Neuro Common normals: oriented x3, CN's II-XII intact bilaterally, moves all extremities, no focal motor deficits, no sensory deficits noted and deep tendon reflexes 2+ bilaterally Sensorium/orientation: alert Motor exam: strength 5/5 throughout and no movement abnormalities noted Psych Common normals: mental status grossly normal, thought process normal, cooperative, affect normal, speech normal and activity/motor behavior normal Speech: normal speech Thought process: normal thought process Results Additional Findings Additional findings: If on a controlled substance or opioids, I have checked an [place] report on this patient and there are no aberrancies noted in the prescribing history.??If on a controlled substance or opioid a drug screen was completed and reviewed within the last year, and if there has not been a drug screen completed we ordered one today to monitor higher risk, state monitored pain medication use. As part of providing excellent, safe, comprehensive care, the following was completed at our patient's visit: 1. A medication reconciliation and review to ensure accurate knowledge of current/active medications, including asking our patients to inform us about any [id number] medications or herbal remedies/nutritional supplements/alternative remedies. 2. A review to specifically ensure our patients have had annual screening for screening for depression, screening for tobacco use, and screening for unhealthy alcohol use. For concerning screenings had a discussion with the patient, provided patient education, and recommended follow-up with primary care provider when appropriate. If patient noted with a risk of falling, they received education on strength, gait, and balance training to prevent future risk of falling. Assessment and Plan Assessment and Plan (1) Lumbar spondylosis: (2) Myalgia: (3) Sacroiliitis: (4) Lumbar stenosis with neurogenic claudication: Plan pain well controlled, defer further interventional therapy continue HEP as tolerated continue baclofen 5-10mg BID PRN pain/spasms continue zonegran 100mg HS f/u 6 months, sooner if needed
== END 2024-09-18 09:08 | disposition home or self-care (01) ==
LOC: PM 09:07
PROVIDERS: PCP Family Medicine; Visit Provider Nurse Practitioner
DX: M47.816 Spondylosis without myelopathy or radiculopathy, lumbar region (principal); M79.18 Myalgia, other site; M46.1 Sacroiliitis, not elsewhere classified; M48.062 Spinal stenosis, lumbar region with neurogenic claudication
CPT/HCPCS: G0463

== ENCOUNTER 2024-12-01 08:15 | Emergency (ER) | payer MEDICARE, OTHER, SELFPAY ==
--- OUTSIDE RECORDS SUMMARY | 2024-09-26 12:54 | XMS_ITS ---
Author Name Auto Generated Organization OHIP Care Team Providers Care Procurement Accountant Name Role Phone KATARZYNA SNYDER Referring Unavailable NADERER, LATRELL A Primary Care Unavailable BEFFAXAVIER Referring Unava ilable NADERER, LATRELL A Primary Care Unavailable BEFFAXAVIER Referring Unava ilable NADERER, LATRELL A Primary Care Unavailable BEFFXAVIER Flood Attending Unava ilable DAFNE SPEARS Referring Unavailable NADERER, LATRELL A Primary Care Unavailable BARI CASTILLO Referring Unavailable KATARZYNA SNYDER Attending Unavailable JAMIL DELACRUZ Referring Unavailable NADERER, LATRELL A Primary Care Unavailable BEFFAXAVIER Referring Unava ilable NADERER, LATRELL A Primary Care Unavailable BEFFXAVIER Flood Admitting Unava ilable BEFFXAVIER Flood Attending Unava ilable Saundra OLIVO, Talat Benedict Attending Unavailable Saundra OLIVO, Talat Benedict Attending Unavailable Gieditis , Talat Benedict Attending Unavailable Gieditis , Talat Benedict Attending Unavailable Gieditis , Talat Benedict Attending Unavailable Sarmini, Wilson Talal Attending Unavaila ble Sarmini, Wilson Talal Admitting Unavaila ble Sarmini, Wilson Talal Referring Unavaila ble Sarmini, Wilson Talal Attending Unavaila ble Sarmini, Wilson Talal Attending Unavaila ble Sarmini, Wilson Talal Admitting Unavaila ble Sarmini, Wilson Talal Referring Unavaila ble NADERER, LATRELL Attending Unavailable KRISTIE, YASMINE Attending Unavailable GUERO, LATRELL Attending Unavailable JUJU, DIOMEDES Attending Unavailable CANDICEERELATRELL Vivas Referring Unavailable JUJU, DIOMEDES Referring Unavailable DENBESTENLUCI Attending Unavailable NADEREOrtega, LATRELL Attending Unavailable KRISTIE, YASMINE Attending Unavailable PROBLEMS DATE TYPE CONDITION / CODE ATTENDING STATUS [facility] 08/07/2024 Active Postoperative vi sit / Z48.89(ICD-10) CLAUDIO KATARZYNA Active [facility] 07/24/2024 Active Acute postoperat owen pain / G89.18(ICD-10) XAVIER BOYD Active [facility] 07/24/2024 Active TIA (transient i schemic attack) / G45.9(ICD-10) NA Active [facility] 07/24/2024 Active Memory loss / R41.3(ICD-10) NA Active [facility] 07/24/2024 Active Chronic back foreign n, unspecified back location, unspecified back pain laterality / M54.9(ICD-10) NA Active [facility] 07/24/2024 Active Chronic back foreign n, unspecified back location, unspecified back pain laterality / G89.29(ICD-10) NA Active [facility] 07/24/2024 Active Gastroesophageal reflux disease, unspecified whether esophagitis present / K21.9(ICD-10) NA Active [facility] 07/24/2024 Active Primary insomnia / F51.01(ICD-10) NA Active [facility] 07/24/2024 Active Hypertension, un specified type / I10(ICD-10) NA Active [facility] 07/24/2024 Active Dyslipidemia / E78.5(ICD-10) NA Active [facility] 07/24/2024 Active EDWIN (obstructive sleep apnea) / G47.33(ICD-10) NA Active [facility] 07/24/2024 Active Paraesophageal h ernia / K44.9(ICD-10) NA Active [facility] 07/23/2024 Active Abnormal MRI of head / R93.0(ICD-10) NA Active [facility] 07/23/2024 Active Former smoker / Z87.891(ICD-10) NA Active [facility] 07/23/2024 Active Chronic obstruct owen pulmonary disease, unspecified COPD type (HCC) / J44.9(ICD-10) NA Active [facility] 07/23/2024 Active Pre-op evaluatio n / Z01.818(ICD-10) Active [facility] 07/23/2024 Active Preoperative exa mination / Z01.818(ICD-10) NA Active [facility] 07/23/2024 Active CHENEY (dyspnea on exertion) / R06.09(ICD-10) NA Active [facility] 07/23/2024 Active Abnormal results of liver function studies / R94.5(ICD-10) Active [facility] 07/23/2024 Active Abnormal coagula tion profile / R79.1(ICD-10) NA Active [facility] PROCEDURES No Procedure Records Found RESULTS PROGRESS Observed: 08/07/2024 2:14 PM Status: COMPLETED Source: [facility] HNO ID: [id number] Author: KATARZYNA SNYDER APRN.SKYLA Service: ? Author Type: Nurse Practitioner Type: Progress Notes Filed: 08/07/2024 15:37 Note Text: [facility] Clinic Date: August 07, 2024 Shey Obrien 73 year old female CHIEF COMPLAINT: Patient [...] completed prior to appointment Katarzyna Snyder, MSN, BALANCE WEIGHER August 07, 2024 PROGRESS Observed: 08/07/2024 2:04 PM Status: COMPLETED Source: [facility] HNO ID: [id number] Author: OLGA LIDIA BLAKE MA Service: ? Author Type: Recreation Clerk Type: Progress Notes Filed: 08/07/2024 15:37 Note Text: What is the reason for your visit today? Post op Who is your referring physician? Dr. Snyder Are you having poor oral intake? NO Have you had unintentional weight loss of 15 lbs/7 Kg in the last 3-6 months? NO Bowels: constipated, diarrhea, or regular Wound: clean AND dry Temperature: No Drains: No CNOV Observed: 08/07/2024 2:00 PM Status: COMPLETED Source: [facility] Office Visit (GENSERGIO) KARYNSHEY SILVERMAN ([id number]) 1950 F Date Time Provider Department 08/07/24 [...] dry Temperature: No Drains: No Katarzyna Snyder APRN.BALANCE WEIGHER 08/07/2024 3:37 PM Signed [facility] Clinic Date: August 07, 2024 Shey Obrien 73 year old female CHIEF COMPLAINT: Patient [...] completed prior to appointment Katarzyna Snyder, MSN, BALANCE WEIGHER August 07, 2024 Referring Provider: BARI CASTILLO [[id number]] Allergies As of Date: 08/07/2024 (No Known Allergies) Date Reviewed: 08/07/2024 Reviewed by: Olga Lidia Blake MA - Fully Assessed Reason for Visit: Post Op [174] Primary Visit Diagnosis:Postoperative visit [Z48.89] Order(s):CT CHEST LINDSAY RICHARD [[id number]] Order #: [id number] FUTURE Prescriptions as of 08/07/2024 - acetaminophen (TYLENOL EXTRA STRENGTH) 500 mg tablet Take 2 tablets by mouth every 6 hours as needed for pain. - docusate sodium (COLACE) 100 mg capsule Take 1 capsule by mouth two times a day as needed for constipation. - tiotropium bromide (SPIRIVA RESPIMAT INHALATION) Inhale as instructed. - ALBUTEROL INHALATION Inhale as instructed. - Vitamin E, dl, acetate, (VITAMIN E) 400 unit capsule Take 1 capsule by mouth. - aspirin 81 mg cap Take 81 mg by mouth. - atorvastatin (LIPITOR) 40 mg tablet Take 40 mg by mouth. - calcium carbonate (CALTRATE) 600 mg calcium (1,500 mg) tab Take 1 tablet by mouth. - Cholecalciferol, Vitamin D3, 25 mcg (1,000 unit) cap Take 1 capsule by mouth. - donepezil (ARICEPT) 5 mg tablet Take 5 mg by mouth daily at bedtime. - famotidine (PEPCID) 40 mg tablet Take 1 tablet by mouth. - fluticasone (FLONASE) 50 mcg/actuation nasal spray 2 Sprays once daily. - losartan (COZAAR) 50 mg tablet Take 50 mg by mouth. - pantoprazole DR (PROTONIX) 40 mg tablet Take 40 mg by mouth. - Zolpidem (AMBIEN CR) 12.5 mg CR tablet Take 12.5 mg by mouth. Problem List As Of Date 08/07/2024 Noted Resolved Paraesophageal hernia [K44.9] 04/29/2024 Chronic obstructive pulmonary disease (HCC) [J4*11/04/2021 COPD (chronic obstructive pulmonary disease) (H*08/11/2023 Cough, unspecified [R05.9] 02/22/2022 Dyslipidemia [E78.5] 08/11/2023 Dysphagia [R13.10] 02/23/2024 Dyspnea, unspecified [R06.00] 11/02/2021 Encounter for long-term (current) use of medica*08/11/2023 Essential hypertension, benign [I10] 08/11/2023 07/23/2024 Hypertension [I10] 09/16/2021 07/23/2024 HTN (hypertension) [I10] 07/23/2024 Lower extremity edema [R60.0] 08/11/2023 Lumbar radiculopathy [M54.16] 09/16/2021 Class 2 severe obesity due to excess calories w*03/03/2024 07/23/2024 Morbid obesity due to excess calories (HCC) [E6*08/11/2023 07/23/2024 BMI 39.0-39.9,adult [Z68.39] 07/23/2024 07/23/2024 Obesity [E66.9] 07/23/2024 EDWIN (obstructive sleep apnea) [G47.33] 08/11/2023 Osteopenia of lumbar spine [M85.88] 08/11/2023 Prediabetes [R73.03] 08/13/2023 Primary insomnia [F51.01] 08/11/2023 Primary osteoarthritis of both knees [M17.0] 08/11/2023 Screening for malignant neoplasm of colon [Z12.*07/23/2024 Seasonal allergic rhinitis due to pollen [J30.1]08/11/2023 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] 02/09/2024 Stroke (HCC) [I63.9] 03/03/2024 TIA (transient ischemic attack) [G45.9] 08/11/2023 Transient ischemic attack [G45.9] 07/23/2024 GERD (gastroesophageal reflux disease) [K21.9] 07/23/2024 Hiatal hernia with gastroesophageal reflux dise*08/11/2023 Hiatal hernia [K44.9] 07/23/2024 Contact with and (suspected) exposure to covid-*11/04/2021 Abdominal hernia [K46.9] 09/16/2021 Shortness of breath [R06.02] 11/04/2021 Psychophysiologic insomnia [F51.04] 02/23/2022 Personal history of urinary (tract) infections *02/23/2022 Morbid (severe) obesity due to excess calories *09/16/2021 07/23/2024 Other specified disorders of bone density and s*09/16/2021 Asymptomatic menopausal state [Z78.0] 09/16/2021 Pain in right ankle and joints of right foot [M*09/16/2021 Former smoker [Z87.891] 07/23/2024 Abnormal MRI of head [R93.0] 07/23/2024 Memory loss [R41.3] 07/23/2024 Chronic back pain [M54.9, G89.29] 07/23/2024 Obesity, Class II, BMI 35-39.9 [E66.812] 07/24/2024 S/P repair of paraesophageal hernia [Z98.890, Z*07/24/2024 Acute postoperative pain [G89.18] 07/24/2024 Electrolyte abnormality [E87.8] 07/26/2024 Encounter Status:Closed by KATARZYNA SNYDER on 08/07/24 PT ED Observed: 07/26/2024 12:32 PM Status: COMPLETED Source: [facility] HNO ID: [id number] Author: NOREEN RODNEY DTR Service: Nutrition Therapy Author Type: Guest Experience Representative Type: Patient Education Filed: 07/26/2024 14:04 Note [...] SIGNATURE: Noreen Rodney DTR PATIENT NAME: Shey Obrien DATE: July 26, 2024 TIME: 2:04 PM PAGER: CASE MANAGEM Observed: 07/26/2024 11:57 AM Status: COMPLETED Source: [facility] HNO ID: [id number] Author: KRISTIE DIAZ, Naz Service: ? Author Type: ? Type: Care Mgt Progress Note Filed: 07/26/2024 11:58 Note Text: CARE MANAGEMENT PROGRESS NOTE SERVICE DATE: 07/26/2024 SERVICE TIME: 11:57 AM LOS: 2 days IMM Follow Up Copy Given: Yes Copy given to:: Patient Method: In Person SIGNATURE: Kristie Diaz CMA PATIENT NAME: Shey Obrien DATE: July 26, 2024 TIME: 11:57 AM CASE MANAGEM Observed: 07/26/2024 9:22 AM Status: COMPLETED Source: [facility] HNO ID: [id number] Author: DERREK MARSHALL RN Service: Care Management [...] SIGNATURE: Derrek Marshall RN PATIENT NAME: Shey Obrien DATE: July 26, 2024 TIME: 9:22 AM CNDS Observed: 07/26/2024 9:04 AM Status: [facility]PLETED [id number] Author: KASSY MOHAN APRN.BALANCE WEIGHER Service: General Surgery Author Type: Nurse Practitioner [...] GENERAL SURGERY DISCHARGE SUMMARY PATIENT NAME: Shey Obrien ADMISSION DATE: 07/24/2024 DISCHARGE DATE: 07/26/2024 ATTENDING [...] surgery Anesthesia administration [facility] H[facility]PITAL COURSE: Shey Obrien is a 73-year-old female with a PMHx of COPD, former smoker, EDWIN, HTN, GERD, dyslipidemia, TIA, memory loss, chronic back pain and insomnia who presented on 07/24/2024 for a paraesophageal hernia repair with Dr. Boyd. See operative report for details. She recovered in the PACU and [facility] the [facility] of her postoperative care. [...] 600 mg calcium (1,500 mg) Tab Commonly known as: CALTRATE Cholecalciferol (Vitamin D3) 25 mcg (1,000 unit) Cap donepezil 5 mg tablet Commonly known as: ARICEPT famotidine 40 mg tablet Commonly known as: PEPCID fluticasone 50 mcg/actuation nasal spray Commonly known as: FLONASE losartan 50 mg tablet Commonly known as: COZAAR pantoprazole DR 40 mg tablet Commonly known as: PROTONIX SPIRIVA RESPIMAT INHALATION Vitamin E (dl, acetate) 400 unit capsule Commonly known as: VITAMIN E Zolpidem 12.5 mg CR tablet Commonly known as: Ambien CR Where to Get Your Medications These medications were sent to e- [id number] [place] [address] - [address] [facility] - [phone] [facility] [address] [facility] [address] ondansetron 4 mg tablet oxyCODONE IR 5 mg immediate release tablet You can get these medications from any pharmacy You don't need a prescription for these medications acetaminophen 500 mg tablet docusate sodium 100 mg capsule PLAN OF CARE: Plan of care discussed with Provider, RN, Patient FUTURE APPOINTMENTS: No future appointments. The patient's risk for 30-day readmission is determined using the following contributing factors: Pt variables contributing to increased readmission risk: 18 Active Medication Orders 10 Most Recent BUN Result 9.3 First Resulted Calcium During Admission 1 Insurance - Medicare 1 History of COPD 1 Active Anticoagulant I have performed the dvjb-we-csap and relevant services for a total of >30 minutes. SIGNATURE: Kassy Mohan APRN.BALANCE WEIGHER DATE: July 26, 2024 TIME: 9:05 AM CBC W AUTO DIFF BLD Collected: 07/26/2024 1:[address] atus: F Source: [facility] Order Comment: Specimen Type : BLOOD SPECIMEN Ordering Facility: [facility] Address: [address] [place] [address] TYPE CODE TESTS RESULT OUT OF RANGE REFERENCE UNITS LAB 6690-2(LOINC) WBC # Bld Auto 6.14 3.70-11.00 k/uL LAB 789-8(LOINC) RBC # Bld Auto 3.71 Low 3.90-5.20 m/ uL LAB 718-7(LOINC) Hgb Bld-mCnc 12.2 11.5-15.5 g/dL LAB 4544-3(LOINC) Hct VFr Bld Auto 35.1 Low 36.0-46.0 % LAB 787-2(LOINC) MCV RBC Auto 94.6 80.0-100.0 fL LAB 785-6(LOINC) MCH RBC Qn Auto 32.9 26.0-34.0 p g LAB 786-4(LOINC) MCHC RBC Auto-mCnc 34.8 30.5-36.0 g/dL LAB 65291-2([facility]) RDW RBC-Rto 13.9 11.5-15.0 % LAB 777-3([facility]) Platelet # Bld Auto 143 Low 150-400 k/uL LAB 36055-4([facility]) PMV Bld Auto 9.9 9.0-12.7 fL LAB 770-8([facility]) Neutrophils/leuk NFr Bld Auto 59.3 % LAB 751-8([facility]) Neutrophils # Bld Auto 3.64 1.45-7.50 k/uL LAB 736-9([facility]) Lymphocytes/leuk NFr Bld Auto 30.9 % LAB 731-0([facility]) Lymphocytes # Bld Auto 1.90 1.00-4.00 k/uL LAB 5905-5([facility]) Monocytes/leuk NFr Bld Auto 7.5 % LAB 742-7([facility]) Monocytes # Bld Auto 0.46 <0.87 k/uL LAB 713-8([facility]) Eosinophil/leuk NFr Bld Auto 1.3 % LAB 711-2([facility]) Eosinophil # Bld Auto 0.08 <0.46 k/uL LAB 706-2([facility]) Basophils/leuk NFr Bld Auto 0.3 % LAB 704-7([facility]) Basophils # Bld Auto <0.03 <0.11 k/uL LAB 31373-3([facility]) Imm Granulocytes/alexandr k NFr Bld Auto 0.7 % LAB 58670-3([facility]) Imm Granulocytes # Bld Auto 0.04 <0.10 k/uL LAB 51631-7([facility]) nRBC/100 WBC Bld-Rto 0.0 /100 WBC LAB 771-6([facility]) nRBC # Bld Auto <0.01 <0.01 k/u L LAB 08517-9([facility]) Differential method Bld Auto Performed By: #### 67589-1 # ### [facility] CLIA [id number] [address] [place] [address] [place] BAS METAB 2000 PNL SERPL Collected: 1:13 AM Status: F Source: [facility] Order Comment: Specimen Type : BLOOD SPECIMEN Ordering Facility: [facility] Address: [facility] [place] [address] TYPE CODE TESTS RESULT OUT OF RANGE REFERENCE UNITS LAB 2345-7(LOINC) Glucose SerPl-mCnc 112 High 74-99 mg/dL Result Comment: The [place] Diabetes Association (ADA) provides guidance for cutoff [...] Standards of Medical Care in Diabetes 2016, [place] [employer] Association. Diabetes Care. 2016.39(Suppl 1). LAB 3094-0(LOINC) BUN SerPl-mCnc 10 7-21 mg/ dL LAB 2160-0(LOINC) Creat SerPl-mCnc 0.92 0.58-0.96 mg/dL LAB 2951-2(LOINC) Sodium SerPl-sCnc 143 136-144 mmol/L LAB 2823-3(LOINC) Potassium SerPl-sCnc 3.4 Low 3.7-5.1 mmol/L LAB 2075-0(LOINC) Chloride SerPl-sCnc 107 98-107 mmol/L LAB 2028-9(LOINC) CO2 SerPl-sCnc 24 22-30 mmo l/L LAB 75413-3(LOINC) Anion Gap SerPl-sCnc 12 8-15 mmol/L LAB 57536-2(LOINC) Calcium SerPl-mCnc 9.0 8.5-10.2 mg/dL LAB 62186-5(LOINC) Creatinine + eGFR Pnl SerPlBld 66 >=60 mL/min/1 .73m??? Result Comment: Estimated Gl omerular Filtration Rate (eGFR) is calculated using the 2020 CKD-EPI creatinine equation. This equation utilizes serum creatinine, sex, and age as parameters. The creatinine assay has traceable calibration to isotope dilution-mass spectrometry. Refer to KDIGO guidelines for clinical interpretation. In patients with unstable renal function, e.g. those with acute kidney injury, the eGFR may not accurately reflect actual GFR. Performed By: #### 04436-5, 84506-1, 2777-1 #### [facility] CLIA [id number] [address] [place] [address] [place] MAGNESIUM SERPL-MCNC Collected: 07/26/2024 1:13 AM S tatus: F Source: [facility] Order Comment: Specimen Type : BLOOD SPECIMEN Ordering Facility: [facility] Address: [address] [place] [address] TYPE CODE TESTS RESULT OUT OF RANGE REFERENCE UNITS LAB 01019-3(LOINC) Magnesium SerPl-mCnc 2.0 1.7-2.3 mg/dL Performed By: #### 09095-3, 73523-2, 2777-1 #### [facility] CLIA [id number] [address] [place] [address] [place] PHOSPHATE SERPL-MCNC Collected: 07/26/2024 1:13 AM S tatus: F Source: [facility] Comment: Specimen Type : BLOOD SPECIMEN Ordering Facility: [facility] Address: [address] [place] [address] TYPE CODE TESTS RESULT OUT OF RANGE REFERENCE UNITS LAB 2777-1(LOINC) Phosphate SerPl-mCnc 2.5 Low 2.7-4.8 mg/dL Performed By: #### 60666-0, 10779-7, 2777-1 #### [facility] CLIA [id number] [address] [place], [place] [id number] [place] CNCO Observed: 07/26/2024 12:00 AM Status: COMPLETED Source: [facility] Letter Text HIGH SENSITIVITY TROPONIN T Collected: 07/25/2024 5:26 PM Status: F Source: [facility] Order Comment: Specimen Type : BLOOD SPECIMEN Ordering Facility: [facility] Address: [address] [place] [address] TYPE CODE TESTS RESULT OUT OF RANGE REFERENCE UNITS LAB 61352-8(LOINC) Troponin T SerPl HS-mCnc 12 High <12 ng/L Performed By: #### HSTNT ### # [facility] CLIA [id number] [address] [place] [address] [place] [id number] [facility] CASE MGT INBRITTANY [place] Observed: 07/25/2024 2:29 PM Status: COMPLETED Source: [facility] HNO ID: [id number] Author: DERREK MARSHALL RN Service: Care Management Author Type: Registered Nurse Type: Care Mgt Initial Assessment Filed: 07/25/2024 14:30 Note Text: CARE MANAGEMENT: ASSESSMENT AND DISCHARGE PLAN SERVICE DATE: July 25, 2024 SERVICE TIME: 2:29 PM PCP: Latrell Jack MD Primary Contact: Extended Emergency Contact Information Primary Emergency Contact: Alexandria Vanegas Address: [address] [place] [address] Relation: Relative Admission Status: Inpatient Insurance Provider: MEDICARE A AND B Discharge Planning requested by: Per Department Practice Potential Transition Plans To Be Determined Advance Directives Current Advance Directive: None Senior Business Architect Attempted to Assist with AD Completion: Yes Action: Education Provided [place] of Choice Explained: [place] of Choice Given: No Reason Not Given: [...] SIGNATURE: Derrek Marshall RN PATIENT NAME: Shey Obrien DATE: July 25, 2024 TIME: 2:29 PM CASE MANAGEM Observed: 07/25/2024 2:27 PM Status: COMPLETED Source: [facility] HNO ID: [id number] Author: DERREK MRASHALL RN Service: Care Management Author Type: Registered Nurse Type: Care Mgt Progress Note Filed: 07/25/2024 14:28 Note Text: CARE MANAGEMENT: ASSESSMENT AND DISCHARGE PLAN SERVICE DATE: July 25, 2024 SERVICE TIME: 2:28 PM PCP: Latrell Jack MD Primary Contact: Extended Emergency Contact Information Primary Emergency Contact: SanjuanasandrodennisAlexandria Address: [address] [place] [address] Relation: Relative Admission Status: Inpatient Insurance Provider: MEDICARE A AND B Discharge Planning requested by: Per Department Practice Potential Transition Plans To Be Determined Advance Directives Current Advance Directive: None Senior Business Architect Attempted to Assist with AD Completion: Yes Action: Education Provided [place] of Choice Explained: [place] of Choice Given: No Reason Not Given: [...] Management. SIGNATURE: Derrek Marshall RN PATIENT NAME: hSey Obrien DATE: July 25, 2024 TIME: 2:27 PM XR UPPER GI SINGLE CONTRAST Observed: 10:04 AM Status: F Source: [facility] * * *Final Report* * * DATE [...] (min:sec). Air kerma: 38.9 mGy. RESULT: Preliminary bowstring maker: Gastric distention. No dilated bowel in the [...] ESOPHAGEAL TRANSIT, LIKELY RELATED TO POSTOPERATIVE EDEMA. Bat Carrier: PSCB Transcribe Date/Time: Jul 25 2024 10:06A Dictated by : NAHID PACHECO MD This examination was interpreted and the report reviewed and electronically signed by: MARTHA CATALAN MD on Jul 25 2024 10:13AM EST [id number] PROGRESS Observed: 07/25/2024 8:54 AM Status: COMPLETED Source: [facility] HNO ID: [id number] Author: YAN MOSER, Naz Service: General Surgery Author Type: Physician Type: Progress Notes Filed: 07/25/2024 08:57 Note Text: GENERAL SURGERY PROGRESS NOTE PATIENT NAME: Shey Obrien AGE: [age] year old : 1950 SEX: female ASSESSMENT: Shey Obrien is a 73 year old female with [...] and Airways Line Duration Peripheral 07/24/24 0900 [facility] Right Hand 20 Gauge <1 day Peripheral 07/24/24 1111 Left Hand 18 Gauge <1 day SURGERY/PROCEDURE: Procedure(s) and Anesthesia Type: * LAPAROSCOPIC RPR PARAESOPHAGEAL HERNIA W/O FUNDOPLASTY W/ MESH - General PLAN OF CARE Observed: 07/24/2024 7:09 PM Status: COMPLETED Source: [facility] HNO ID: [id number] Author: NENA SEPULVEDA MD Service: General Surgery [...] SERVICE DATE: 07/24/24 SERVICE TIME: 7:09 PM PROGRESS Observed: 07/24/2024 6:54 PM Status: COMPLETED Source: [facility] HNO ID: [id number] Author: TRIP VERDE RN Service: Nursing Author Type: Registered Nurse Type: Progress Notes Filed: 07/24/2024 18:55 Note Text: [id number] Paged [phone] to notify that patient came up from PACU with a rdz in but no active rdz order. Requesting order to be placed. PROGRESS Observed: 07/24/2024 6:25 PM Status: COMPLETED Source: [facility] HNO ID: [id number] Author: TRIP VERDE RN Service: Nursing Author Type: Registered Nurse Type: Progress Notes Filed: 07/24/2024 18:25 Note Text: Admission/Transfer Note PATIENT NAME: Shey Obrien Patient [facility]: [facility] Room: [facility] Patient admitted from PACU via bed in stable condition. Actions taken: Patient oriented to room, call light function, prescribed activities, Patient rights, and Quiet at night. Patient belongings with patient. This note was completed by: Trip PAYNE W AUTO DIFF BLD Collected: 07/24/2024 6:[address] atus: F Source: [facility] Order Comment: Specimen Type : BLOOD SPECIMEN Ordering Facility: [facility] Address: [place] [address] TYPE CODE TESTS RESULT OUT OF RANGE REFERENCE UNITS LAB 6690-2([facility]) WBC # Bld Auto 7.18 3.70-11.00 k/uL LAB 789-8([facility]) RBC # Bld Auto 4.12 3.90-5.20 m/ uL LAB 718-7([facility]) Hgb Bld-mCnc 13.4 11.5-15.5 g/dL LAB 4544-3([facility]) Hct VFr Bld Auto 38.8 36.0-46.0 % LAB 787-2([facility]) MCV RBC Auto 94.2 80.0-100.0 fL LAB 785-6([facility]) MCH RBC Qn Auto 32.5 26.0-34.0 p g LAB 786-4([facility]) MCHC RBC Auto-mCnc 34.5 30.5-36.0 g/dL LAB 15002-9([facility]) RDW RBC-Rto 13.9 11.5-15.0 % LAB 777-3([facility]) Platelet # Bld Auto 144 Low 150-400 k/uL LAB 56530-7([facility]) PMV Bld Auto 10.0 9.0-12.7 fL LAB 770-8([facility]) Neutrophils/leuk NFr Bld Auto 89.5 % LAB 751-8([facility]) Neutrophils # Bld Auto 6.43 1.45-7.50 k/uL LAB 736-9([facility]) Lymphocytes/leuk NFr Bld Auto 6.7 % LAB 731-0([facility]) Lymphocytes # Bld Auto 0.48 Low 1.00-4.00 k/uL LAB 5905-5([facility]) Monocytes/leuk NFr Bld Auto 3.2 % LAB 742-7([facility]) Monocytes # Bld Auto 0.23 <0.87 k/uL LAB 713-8([facility]) Eosinophil/leuk NFr Bld Auto 0.0 % LAB 711-2([facility]) Eosinophil # Bld Auto <0.03 <0.46 k/uL LAB 706-2(LOINC) Basophils/leuk NFr Bld Auto 0.3 % LAB 704-7(LOINC) Basophils # Bld Auto <0.03 <0.11 k/uL LAB 11556-0(LOINC) Imm Granulocytes/alexandr k NFr Bld Auto 0.3 % LAB 72276-9(LOINC) Imm Granulocytes # Bld Auto <0.03 <0.10 k/uL LAB 86190-9(LOINC) nRBC/100 WBC Bld-Rto 0.0 /100 WBC LAB 771-6(LOINC) nRBC # Bld Auto <0.01 <0.01 k/u L LAB 21559-8(INC) Differential method Bld Auto Performed By: #### 51975-1 # ### [facility] CLIA [id number] [address] [place] [address] [place] BAS METAB 2000 PNL SERPL Collected: 6:13 PM Status: F Source: [facility] Order Comment: Specimen Type : BLOOD SPECIMEN Ordering Facility: [facility] Address: [address] [place] [address] TYPE CODE TESTS RESULT OUT OF RANGE REFERENCE UNITS LAB 2345-7(LOINC) Glucose SerPl-mCnc 171 High 74-99 mg/dL Result Comment: The [place] Diabetes Association (ADA) provides guidance for cutoff [...] Standards of Medical Care in Diabetes 2016, [place] Diabetes Association. Diabetes Care. 2016.39(Suppl 1). LAB 3094-0(LOINC) BUN SerPl-mCnc 10 7-21 mg/ dL LAB 2160-0(LOINC) Creat SerPl-mCnc 0.83 0.58-0.96 mg/dL LAB 2951-2(LOINC) Sodium SerPl-sCnc 141 136-144 mmol/L LAB 2823-3(LOINC) Potassium SerPl-sCnc 4.0 3.7-5.1 mmol/L LAB 2075-0(LOINC) Chloride SerPl-sCnc 105 98-107 mmol/L LAB 2028-9(LOINC) CO2 SerPl-sCnc 21 Low 22-30 mmo l/L LAB 86195-1(LOINC) Anion Gap SerPl-sCnc 15 8-15 mmol/L LAB 98999-3(LOINC) Calcium SerPl-mCnc 9.3 8.5-10.2 mg/dL LAB 52489-4(LOINC) Creatinine + eGFR Pnl SerPlBld 75 >=60 mL/min/1 .73m??? Result Comment: Estimated Gl omerular Filtration Rate (eGFR) is calculated using the 2020 CKD-EPI creatinine equation. This equation utilizes serum creatinine, sex, and age as parameters. The creatinine assay has traceable calibration to isotope dilution-mass spectrometry. Refer to KDIGO guidelines for clinical interpretation. In patients with unstable renal function, e.g. those with acute kidney injury, the eGFR may not accurately reflect actual GFR. Performed By: #### 87810-9, HSTNT, , 2776-07 #### [facility] CLIA [id number] [address] [place] [address] [place] HIGH SENSITIVITY TROPONIN T Collected: 07/24/2024 6:13 PM Status: F Source: [facility] Order Comment: Specimen Type : BLOOD SPECIMEN Ordering Facility: [facility] Address: [address] [place] [address] TYPE CODE TESTS RESULT OUT OF RANGE REFERENCE UNITS LAB 16429-5([facility]) Troponin T SerPl HS-mCnc 8 <12 ng/L Performed By: #### 31834-5, HSTNT, , 2776-07 #### [facility] CLIA [id number] [address] [place] [place] [address] [place] MAGNESIUM SERPL-MCNC Collected: 07/24/2024 6:13 PM S tatus: F Source: [facility] Order Comment: Specimen Type : BLOOD SPECIMEN Ordering Facility: [facility] Address: [address] [place] [address] TYPE CODE TESTS RESULT OUT OF RANGE REFERENCE UNITS LAB 15071-4(LOINC) Magnesium SerPl-mCnc 1.7 1.7-2.3 mg/dL Performed By: #### 45099-6, HSTNT, 87881-6, 2777-1 #### [facility] CLIA [id number] [address] [place] [address] OF [place] PHOSPHATE SERPL-MCNC Collected: 07/24/2024 6:13 PM S tatus: F Source: [facility] Order Comment: Specimen Type : BLOOD SPECIMEN Ordering Facility: [facility] Address: [address] [place] [address] TYPE CODE TESTS RESULT OUT OF RANGE REFERENCE UNITS LAB 2777-1(LOINC) Phosphate SerPl-mCnc 3.6 2.7-4.8 mg/dL Performed By: #### 14631-0, HSTNT, 15553-5, 2777-1 #### [facility] CLIA [id number] [address] [place] [address] OF [place]ENNIF[place] ANES POSTPROC EVAL Observed: 07/24/2024 3:38 PM Status: COMPLETED Source: [facility] HNO ID: [id number] Author: FLOR SNOW MD Service: ? Author Type: Physician Type: Anesthesia Postprocedure Evaluation Filed: 07/24/2024 15:38 Note Text: POST ANESTHESIA EVALUATION NOTE : 1950 Procedure Summary Date: 07/24/24 Room / Location: [facility] Anesthesia Start: 1055 Anesthesia Stop: 1430 Procedure: LAPAROSCOPIC RPR PARAESOPHAGEAL HERNIA W/O FUNDOPLASTY W/ MESH (Abdomen) Diagnosis: Preoperative examination Paraesophageal hernia (Preoperative examination [Z01.818]) (Paraesophageal hernia [K44.9]) Surgeons: Xavire Boyd MD Responsible Provider: Flor Snow MD [...] SIGNATURE: Flor Snow MD PATIENT NAME: Shey Obrien DATE: July 24, 2024 TIME: 3:38 PM CSN: [id number] BRIEF OP NOT Observed: 07/24/2024 2:15 PM Status: COMPLETED [facility] [id number] Author: YAN MOSER ? Service: General Surgery Author Type: Physician Type: Brief Op Note Filed: 07/24/2024 14:16 Note Text: BRIEF OPERATIVE / PROCEDURE NOTE LOG ID: [id number] SURGERY/PROCEDURE DATE: 07/24/2024 INCISION/PROCEDURE START TIME: 11:37 AM INCISION CLOSE/PROCEDURE END TIME: 2:12 PM SURGEON(S)/PROCEDURALIST(S) AND WATER FILTERER HELPER(S): Surgeons and Role: * Xavier Boyd MD [...] hernia SIGNATURE: Yan Moser PATIENT NAME: Shey Obrien DATE: July 24, 2024 TIME: 2:15 PM PAGER/CONTACT #: [phone] ANES PROCEDURE NOTE Observed: 07/24/2024 11:23 AM Status: COMPLETED Source: [facility] HNO ID: [id number] Author: BETTY ALLEN APRN.INTERLOCKING PAVEMENT INSTALLER Service: ? Author Type: Nurse Levelman Type: Anesthesia Procedure Notes Filed: 07/24/2024 11:23 Note Text: ANESTHESIOLOGY PROCEDURE NOTE Airway General Information Procedure Start Time/Medication Administration: 07/24/2024 11:09 AM Procedure End Time: 07/24/2024 11:09 AM Patient location during procedure: OR Timeout Performed Pre-procedure: timeout performed Consent Obtained: Yes Patient identity confirmed: arm band, care senior stereo compiler team lead and patient Staffing INTERLOCKING PAVEMENT INSTALLER: Betty Allen APRN.INTERLOCKING PAVEMENT INSTALLER Performed by: ELIZABETH Indications and Patient Condition Indications for airway management: anesthesia Preoxygenated: yes anesthesia circuit Patient position: reverse Trendelenburg, sniffing and ramp Method: rapid sequence Final Airway Details Final airway type: endotracheal airway Final Endotracheal Airway: ETT Cuffed: yes Successful intubation technique: video laryngoscopy Devices used: Daly Endotracheal tube insertion site: oral Blade size: #3 ETT size (mm): 7.0 Measured from: lips Measurement (cm): 21 Placement verified by: capnometry Cormack-Lehane Classification: grade I - full view of glottis Number of attempts at approach: 1 Airway not difficult SIGNATURE: Betty Allen APRN.CRNA PATIENT NAME: Shey Obrien DATE: July 24, 2024 TIME: 11:23 AM CSN: [id number] ANES PROCEDURE NOTE Observed: 07/24/2024 11:22 AM Status: COMPLETED Source: [facility] HNO ID: [id number] Author: BETTY ALLEN APRN.INTERLOCKING PAVEMENT INSTALLER Service: ? Author Type: Nurse Levelman Type: Anesthesia Procedure Notes Filed: 07/24/2024 11:23 Note Text: ANESTHESIOLOGY PROCEDURE NOTE PIV General Information Procedure Start Time/Medication Administration: 07/24/2024 11:11 AM Procedure End Time: 07/24/2024 11:11 AM Patient Location: OR Staffing INTERLOCKING PAVEMENT INSTALLER: Betty Allen APRN.INTERLOCKING PAVEMENT INSTALLER Performed by: INTERLOCKING PAVEMENT INSTALLER Preparation Sterility Preparation: hand hygiene performed prior to procedure, surgical cap used, mask used, skin prep agent completely dried prior to procedure Site Prep: alcohol Procedure Details Indication: need for IV access Needle Size/Type: 18 gauge angiocath Orientation: Left Location: Hand Imaging Guidance Used: No SIGNATURE: Betty Allen APRN.INTERLOCKING PAVEMENT INSTALLER PATIENT NAME: Shey Obrien DATE: July 24, 2024 TIME: 11:22 AM CSN: [id number] OPERATIVE NO Observed: 07/24/2024 10:55 AM Status: COMPLETED [facility]: [id number] Author: XAVIER BOYD MD Service: General Surgery Author Type: Physician Type: Operative Report Filed: 07/24/2024 14:31 Note Text: OPERATIVE/PROCEDURE REPORT LOG ID: [id number] SURGERY/PROCEDURE DATE: 07/24/2024 INCISION/PROCEDURE START TIME: 11:37 AM INCISION CLOSE/PROCEDURE END TIME: 2:12 PM SURGEON(S)/PROCEDURALIST(S) AND WATER FILTERER HELPER(S): Surgeons and Role: * Xavier Boyd MD [...] the left and right subcostal regions. An assistant professor surgical technology 5 mm trocar was placed in the left lower abdomen. A 5 mm [facility] Mimi Flex liver retractor was placed through [...] retroesophageal window was created and a 1/4? Jennyfer drain was used to encircle the esophagus [...] sutures to the left upper abdomen. The [place] drain and liver retractor were removed. The [...] required to assist with this case. The assistant professor surgical technology performed retraction and assisted with exposure. PRE-OP/PRE-PROCEDURE DIAGNOSIS: Type III paraesophageal hernia, symptomatic POST-OP/POST-PROCEDURE DIAGNOSIS: Same as Preop ESTIMATED BLOOD LOSS: 30 mls SPECIMENS: None IMPLANTABLE DEVICES: NONE DRAINS: None COMPLICATIONS: None CLOSURE TECHNIQUE: Primary PARTICIPATION IN SURGERY/PROCEDURE: I/primary surgeon/proceduralist performed the procedure with assistance. SIGNATURE: Xavier Boyd MD PATIENT NAME: Shey Obrien DATE: July 24, 2024 TIME: 2:27 PM PLAN OF CARE Observed: 07/24/2024 10:29 AM Status: COMPLETED Source: [facility] HNO ID: [id number] Author: ABDELRAHMAN HE MD Service: General Surgery Author Type: Resident Type: Plan of Care Filed: 07/24/2024 10:30 Note Text: Patient consented for study? Yes STUDY TITLE: MVP Trial: Mesh Vs Pledgets for repair of paraesophageal hernia repair: a randomized, blinded, parallel group trial IRB NO.: #[id number] CAN PILER: Jermaine Ramirez MD COORDINATOR/Research Nurse/Analytics Senior Manager: Abdelrahman He MD Phone/email: [phone], [email or web address] Consenting was performed in person prior [...] CRITERIA Yes No 1. The patient lacks Tajik language fluency or cannot understand the consent form/study procedures [] [x] 2. The patient is [] [x] 3. The patient has a BMI >45 [] [x] 4. The patient has undergone previous hiatal hernia repair [] [x] 5. The patient will undergo paraesophageal hernia repair with a concurrent bariatric procedure to reduce stomach volume [] [x] ANES PRE-OP Observed: 07/24/2024 9:15 AM Status: COMPLETED Source: [facility] HNO ID: [id number] Author: FLOR SNOW MD Service: ? Author Type: Physician Type: Anesthesia Preprocedure Evaluation Filed: 07/24/2024 09:16 Note Text: ANESTHESIOLOGY DAY OF SURGERY NOTE : 1950 Procedure Information Date/Time: 07/24/24 1051 Procedure: LAPAROSCOPIC RPR PARAESOPHAGEAL HERNIA W/O FUNDOPLASTY W/ MESH (Abdomen) Location: MAIN OR[facility] / [facility]AV[facility] Surgeons: Xavier Boyd MD [...] and consent discussed: yes. Patient / Responsible Democrat agrees to proceed: yes Patient / Surrogate [...] SIGNATURE: Flor Snow MD PATIENT NAME: Shey Obrien DATE: July 24, 2024 TIME: 9:15 AM CSN: [id number] PROGRESS Observed: 07/23/2024 2:10 PM Status: COMPLETED Source: [facility] HNO ID: [id number] Author: RAMIREZ POSEY RT(Ortega) Service: Radiology Author Type: Technologist Type: Progress Notes Filed: 07/23/2024 14:00 Note Text: Radiology Service Progress Note PATIENT NAME: Shey Obrien DATE OF SERVICE: July 23, 2024 TIME: [...] PATIENT PRESENTS WITH AN IMPLANTABLE OR ATTACHED TURNING MACHINE SET UP OPERATOR: No RADIOLOGY DEPARTMENT: General X-ray: Exam(s) Completed: Chest X-Ray PERIPHERAL IV DATA: Not applicable SIGNED BY: RT Liu(R) July 23, 2024 1:59 PM XR CHEST 2V FRONTAL/LAT Observed: 2024 1:58 PM Status: F Source: [facility] * * *Final Report* * * DATE [...] soft tissues: Unremarkable. IMPRESSION: Large hiatal hernia. Bat Carrier: PSCB Transcribe Date/Time: Jul 24 2024 7:28A Dictated by : JARVIS HUGO MD This examination was interpreted and the report reviewed and electronically signed by: JARVIS HUGO MD on Jul 24 2024 7:30AM EST [id number] HISTORY PHYSICAL Observed: 07/23/2024 1:07 PM Status: COMPLETED Source: [facility] HNO ID: [id number] Author: JAMIL DELACRUZ PA-C Service: ? Author Type: Physician Lesson Instructor Type: H&P Filed: 07/23/2024 14:03 Note Text: [...] Thick neck: yes Lip Bite Test: I Microretrognathia/Micronagthia/Recessed Chin: No DENTAL Dentures, upper: complete. Dentures, [...] Initiated: EKG, labs REASON FOR VISIT: Shey Obrien is a 73 year old female who is scheduled for Procedure(s): LAPAROSCOPIC RPR PARAESOPHAGEAL HERNIA W/O FUNDOPLASTY W/ MESH (N/A) at the request of Dr. Xavier Boyd MD for consultation. My final recommendation will [...] COVID-19 original vaccine, age 12+ yr, monovalent ([place]-[employer] - PURPLE TOP) Only the first 3 history entries have been loaded, but more history exists. CHIEF COMPLAINT: Paraesophageal hernia [K44.9] HPI: Shey Obrien is a 73 year old female with [...] pain, CHF, congenital heart defect, DVT/PE, recent [place] and murmur/valvular heart disease. GI: See HPI. [...] 6.7 oz (95.9kg) SpO2 99% BMI 37.46 kg/(m2). Diagnostic tests reviewed for today's visit: Lab [...] 404 QTC Calculation (Bazett) 423 Calculated P Hernshaw 32 Calculated R Hernshaw 14 Calculated T Hernshaw 54 Impression NORMAL SINUS RHYTHM NORMAL ECG No results found for this or any previous visit (from the past 34162 hour(s)). Instructions Given to Patient: Instructions located in the after visit summary. Patient given verbal and written preop instructions and voices comprehension and compliance. SIGNATURE: Jamil Delacruz PA-C PATIENT NAME: Shey Obrien DATE: July 23, 2024 TIME: 1:07 PM PAGER/CONTACT #: ECG COMPLETE Observed: 07/23/2024 12:08 PM Status: F Source: [facility] Ventricular Rate : 66 BPM Atrial Rate : 66 BPM P-R Interval : 158 ms QRS Duration : 78 ms Q-T Interval : 404 ms QTC Calculation(Bazett) : 423 ms Calculated P Hernshaw : 32 degrees Calculated R Hernshaw : 14 degrees Calculated T Hernshaw : 54 degrees NORMAL SINUS RHYTHM NORMAL ECG Confirmed by MD MCCLENDON HEBA ([id number]) on 07/29/2024 12:16:17 PM NAME : SHEY OBRIEN PID : [id number] : 1950 Gender : Female Race : ORD : [id number] Procedure Date : Jul 23 2024 12:08:10 Edit Date : Jul 29 2024 12:16:18 Diagnosis: NORMAL SINUS RHYTHM NORMAL ECG Confirmed by MD MCCLENDON HEBA ([id number]) on 07/29/2024 12:16:17 PM Test Reason : Location : 119 : A17 A17 Overread By : MD MCCLENDON HEBA Edited By : MD MCCLENDON HEBA Referred By : XAVIER BOYD Acquired by : SADE HA BLOOD TYPE Collected: 11:47 AM Status: F Source: [facility] Order Comment: Specimen Type : BLOOD SPECIMEN Ordering Facility: [facility] Address: [address] [place] [address] TYPE CODE TESTS RESULT OUT OF RANGE REFERENCE UNITS LAB [id number] ABO B LAB [id number] RH Positive Performed By: #### CONABO ## ## [facility] CLIA [id number] [address] [place] [address] [place] PT PNL PPP Collected: 5 11:41 AM Status: F Source: [facility] Order Comment: Specimen Type : BLOOD SPECIMEN Ordering Facility: [facility] Address: [address] [place] [address] TYPE CODE TESTS RESULT OUT OF RANGE REFERENCE UNITS LAB 5902-2(LOINC) Prothrombin time 11.4 9.7-13.0 sec LAB 6301-6(LOINC) INR PPP 1.1 0.9-1.3 Result Comment: Vitamin K An tagonist (VKA) Therapeutic Range: INR 2 to 3 (Target INR of 2.5) Note: For patients treated with VKA drugs, such as warfarin, the [place] [employer]icians 2012 Guideline recommends [...] Chest 2012, 141:7S-47S Keisha RA, et al. [facility] 2017, 70: 252-289 Performed By: #### 53273-6, 66766-6 #### [facility] CLIA [id number] [address] [place] [address] [place] APTT PPP Collected: 5 11:41 AM Status: F Source: [facility] Order Comment: Specimen Type : BLOOD SPECIMEN Ordering Facility: [facility] Address: [address] [place] [address] TYPE CODE TESTS RESULT OUT OF RANGE REFERENCE UNITS LAB 71587-3(LOINC) aPTT PPP 25.5 23.0-32.4 sec Performed By: #### 08760-3, 82841-4 #### [facility] CLIA [id number] [address] [facility] [place] [address] [place] CBC W AUTO DIFF BLD Collected: 07/23/2024 11:41 AM S tatus: F Source: [facility] Order Comment: Specimen Type : BLOOD SPECIMEN Ordering Facility: [facility] Address: [address] [place] [address] TYPE CODE TESTS RESULT OUT OF RANGE REFERENCE UNITS LAB 6690-2([facility]) WBC # Bld Auto 4.84 3.70-11.00 k/uL LAB 789-8([facility]) RBC # Bld Auto 4.12 3.90-5.20 m/ uL LAB 718-7([facility]) Hgb Bld-mCnc 13.4 11.5-15.5 g/dL LAB 4544-3([facility]) Hct VFr Bld Auto 39.0 36.0-46.0 % LAB 787-2([facility]) MCV RBC Auto 94.7 80.0-100.0 fL LAB 785-6([facility]) MCH RBC Qn Auto 32.5 26.0-34.0 p g LAB 786-4([facility]) MCHC RBC Auto-mCnc 34.4 30.5-36.0 g/dL LAB 59470-7([facility]) RDW RBC-Rto 13.9 11.5-15.0 % LAB 777-3([facility]) Platelet # Bld Auto 169 150-400 k/uL LAB 95837-0([facility]) PMV Bld Auto 10.2 9.0-12.7 fL LAB 770-8(INC) Neutrophils/leuk NFr Bld Auto 47.6 % LAB 751-8(INC) Neutrophils # Bld Auto 2.30 1.45-7.50 k/uL LAB 736-9(INC) Lymphocytes/leuk NFr Bld Auto 41.3 % LAB 731-0(INC) Lymphocytes # Bld Auto 2.00 1.00-4.00 k/uL LAB 5905-5(INC) Monocytes/leuk NFr Bld Auto 6.2 % LAB 742-7(INC) Monocytes # Bld Auto 0.30 <0.87 k/uL LAB 713-8(LOINC) Eosinophil/leuk NFr Bld Auto 3.7 % LAB 711-2([facility]) Eosinophil # Bld Auto 0.18 <0.46 k/uL LAB 706-2(INC) Basophils/leuk NFr Bld Auto 0.8 % LAB 704-7([facility]) Basophils # Bld Auto 0.04 <0.11 k/uL LAB 34398-9([facility]) Imm Granulocytes/alexandr k NFr Bld Auto 0.4 % LAB 22149-4([facility]) Imm Granulocytes # Bld Auto <0.03 <0.10 k/uL LAB 88696-0([facility]) nRBC/100 WBC Bld-Rto 0.0 /100 WBC LAB 771-6([facility]) nRBC # Bld Auto <0.01 <0.01 k/u L LAB 37592-9([facility]) Differential method Bld Auto Performed By: #### 66898-9 # ### [facility] CLIA [id number] [address] [place] [address] OF JENNIFER TYPE AND SCREEN,30 DAY Collected: 07/23 11:41 AM Status: F Source: [facility] Order Comment: Specimen Type : BLOOD SPECIMEN Ordering Facility: [facility] Address: [address] [place] [address] TYPE CODE TESTS RESULT OUT OF RANGE REFERENCE UNITS LAB [id number] ABO B LAB [id number] RH Positive LAB [id number] ANTIBODY SCREEN Negative Performed By: #### [id number] ## ## [facility] CLIA [id number] [address] [place] [address] [place] COMP METAB 2000 PNL SERPL Collected: 11:41 AM Status: F Source: [facility] Order Comment: Specimen Type : BLOOD SPECIMEN Ordering Facility: [facility] Address: [address] [place] [address] TYPE CODE TESTS RESULT OUT OF RANGE REFERENCE UNITS LAB 2885-2([facility]) Prot SerPl-mCnc 6.9 6.3-8.0 g/dL LAB 1751-7(LOINC) Albumin SerPl-mCnc 4.2 3.9-4.9 g/dL LAB 62432-9(LOINC) Calcium SerPl-mCnc 9.4 8.5-10.2 mg/dL LAB 1975-2(LOINC) Bilirub SerPl-mCnc 0.5 0.2-1.3 mg/dL LAB 6768-6([facility]) ALP SerPl-cCnc 111 34-123 U/L LAB 1920-8(LOINC) AST SerPl-cCnc 28 13-35 U/L LAB 1742-6(LOINC) ALT SerPl-cCnc 26 7-38 U/L LAB 2345-7([facility]) Glucose SerPl-mCnc 155 High 74-99 mg/dL Result Comment: The [place] Diabetes Association (ADA) provides guidance for cutoff [...] Standards of Medical Care in Diabetes 2016, [place] [employer] Association. Diabetes Care. 2016.39(Suppl 1). LAB 3094-0(LOINC) BUN SerPl-mCnc 13 7-21 mg/ dL LAB 2160-0(LOINC) Creat SerPl-mCnc 0.99 High 0.58-0.96 mg/dL LAB 2951-2(LOINC) Sodium SerPl-sCnc 141 136-144 mmol/L LAB 2823-3(LOINC) Potassium SerPl-sCnc 4.3 3.7-5.1 mmol/L LAB 2075-0(LOINC) Chloride SerPl-sCnc 108 High 98-107 mmol/L LAB 8-9(LOINC) CO2 SerPl-sCnc 23 22-30 mmo l/L LAB 69268-5(INC) Anion Gap SerPl-sCnc 10 8-15 mmol/L LAB 72095-5([facility]) Creatinine + eGFR Pnl SerPlBld 61 >=60 mL/min/1 .73m??? Result Comment: Estimated Gl omerular Filtration Rate (eGFR) is calculated using the 2020 CKD-EPI creatinine equation. This equation utilizes serum creatinine, sex, and age as parameters. The creatinine assay has traceable calibration to isotope dilution-mass spectrometry. Refer to KDIGO guidelines for clinical interpretation. In patients with unstable renal function, e.g. those with acute kidney injury, the eGFR may not accurately reflect actual GFR. Performed By: #### 21842-0 # ### [facility] CLIA [id number] [address] [place] [address] OF [facility] PROGRESS Observed: 04/29/2024 12:08 PM Status: COMPLETED Source: [facility] HNO ID: [id number] Author: XAVIER BOYD MD Service: ? Author [...] blinded, parallel group trial IRB NO.: #[id number] CAN PILER: Pa Prakash MD COORDINATOR/Research Nurse/Analytics Senior Manager: Abdelrahman He MD Phone/email: [phone], Consenting was performed in person prior to [...] CRITERIA Yes No 1. The patient lacks Tajik language fluency or cannot understand the consent form/study procedures [] [x] 2. The patient is [] [x] 3. The patient has a BMI >45 [] [x] 4. The patient has undergone previous hiatal hernia repair [] [x] 5. The patient will undergo paraesophageal hernia repair with a concurrent bariatric procedure to reduce stomach volume [] [x] PROGRESS Observed: 04/29/2024 11:16 AM Status: COMPLETED Source: [facility] HNO ID: [id number] Author: YAN MOSER, ? Service: ? Author Type: Physician Type: Progress Notes Filed: 04/29/2024 12:10 Note Text: [facility] - [...] Consents obtained Yan Moser MD General Surgery CNOV Observed: 04/29/2024 11:00 AM Status: COMPLETED Source: [facility] Office Visit (GENADOLPHN) KARYNSHEY GARCIA ([id number]) 1950 F Date Time Provider Department 04/29/24 [...] Yan Moser 04/29/2024 12:10 PM Signed [facility]dominal [facility] - HISTORY AND PHYSICAL SUBJECTIVE: [...] Consents obtained Yan Moser MD General Surgery [facility], Xavier Acharya MD 04/29/2024 12:10 PM Signed [...] blinded, parallel group trial IRB NO.: #[id number] CAN PILER: Pa Prakash MD COORDINATOR/Research Nurse/Analytics Senior Manager: Abdelrahman He MD Phone/email: [phone], [email or web address] Consenting was performed in person prior [...] CRITERIA Yes No 1. The patient lacks Tajik language fluency or cannot understand the consent form/study procedures [] [x] 2. The patient is [] [x] 3. The patient has a BMI >45 [] [x] 4. The patient has undergone previous hiatal hernia repair [] [x] 5. The patient will undergo paraesophageal hernia repair with a concurrent bariatric procedure to reduce stomach volume [] [x] Referring Provider: DAFNE SPEARS [[id number]] Allergies As of Date: 04/29/2024 (No Known Allergies) Date Reviewed: 04/29/2024 Reviewed by: Diomedes Fiore MA - Fully Assessed Reason for Visit: New Patient Evaluation [154] Cmt: Hiatal Hernia Primary Visit Diagnosis:Paraesophageal hernia [K44.9] Prescriptions as of 04/29/2024 - Vitamin E, dl, acetate, (VITAMIN E) 400 unit capsule Take 1 capsule by mouth. - aspirin 81 mg cap Take 81 mg by mouth. - atorvastatin (LIPITOR) 40 mg tablet Take 40 mg by mouth. - calcium carbonate (CALTRATE) 600 mg calcium (1,500 mg) tab Take 1 tablet by mouth. - Cholecalciferol, Vitamin D3, 25 mcg (1,000 unit) cap Take 1 capsule by mouth. - donepezil (ARICEPT) 5 mg tablet Take 5 mg by mouth daily at bedtime. - famotidine (PEPCID) 40 mg tablet Take 1 tablet by mouth. - fluticasone (FLONASE) 50 mcg/actuation nasal spray 2 Sprays once daily. - losartan (COZAAR) 50 mg tablet Take 50 mg by mouth. - pantoprazole DR (PROTONIX) 40 mg tablet Take 40 mg by mouth. - Zolpidem (AMBIEN CR) 12.5 mg CR tablet Take 12.5 mg by mouth. Problem List As Of Date 04/29/2024 Noted Resolved Paraesophageal hernia [K44.9] 04/29/2024 Visit Notes: >> Diomedes Fiore MA Mon Apr 29, 2024 10:50 AM Status: Signed What is the reason for your visit today? Consult Who is your referring physician? Dafne Spears Are you having poor oral intake? YES Have you had unintentional weight loss of 15 lbs/7 Kg in the last 3-6 months? NO Bowels: soft, more frequent Wound: none Temperature: No Drains: No Level of Service: OFFICE/OUTPATIENT [facility] 45 MINUTES [01303] Encounter Status:Closed by XAVIER BOYD on 04/29/24 MARY Observed: 04/22/2024 12:00 AM Status: COMPLETED Source: [facility] Telephone ([employer]) SHEY OBRIEN ([id number]) 1950 F Date Time Provider Department 04/22/24 ASHLIE CALDERON During your visit today, we recorded the following information about you: Ashlie Calderon 04/22/2024 5:39 PM Signed Spoke with PT she state no prior surgeries Allergies As of Date: 04/22/2024 (Not on File) Date Reviewed: Never Reviewed Problem List As Of Date: 04/22/2024 (None) Encounter Status:Closed by ASHLIE CALDERON on 04/22/24 XR ESOPHAGUS Observed: 03/26/2024 9:56 AM Status: F Source: [facility] Exam Date/Time: 03/26/2024 10:39 EDT Reason for [...] in mGy = 15.80 DAP = 464.17 PROCEDURAL Observed: 03/20/2024 2:33 PM Status: F Source: [facility] Procedural Patient: SHEY OBRIEN Age: 73 years Sex: Female : 1950 Associated Diagnoses: None Author: Daquan Schuler MD Postoperative Information Postoperative disposition: Postoperative disposition: To PACU. Optimetrix number: Optimetrix number [id number]. Anesthetic utilized: General. Health Status Allergies: Allergic [...] when meets criteria ( To home ). DISCHARGE INSTRUCTIONS Observed: 024 1:08 PM Status: F Source: [facility] Discharge Instructions SHEY OBRIEN :1950 Visit Date:03/20/2024 [...] mg Tab) fluticasone nasal (Flonase 0.05 mg/inh Kimball) losartan (losartan 25 mg Tab) multivitamin with minerals (One A Day Women's Complete) pantoprazole (Pantoprazole [address] Tab) vitamin E zolpidem (zolpidem 12.5 mg oral ER Tab) Procedure History Esophagogastroduodenoscopy (03/20/2024), Colonoscopy (10/13/2023), Hand tendon repaired, Meniscal [...] Unchanged fluticasone nasal (Flonase 0.05 mg/ inh Kimball) 2 Sprays Nasal Inhalation Every day Unchanged [...] and may get better after you eat. ? Cramps in your abdomen. ? Nausea and vomiting. ? Bloody vomit. ? Stools that are bloody, dark, or look like tar. ? Diarrhea. ? Weight loss. ? Feeling tired (fatigue). How is this diagnosed? This condition may be diagnosed based on your medical history and a physical exam. You may also have tests, such as: ? Blood tests. ? Stool tests. ? A test that checks the gases in your breath. ? An X-ray that is done after you swallow a liquid called barium. The barium makes your digestive tract easier to see. ? Endoscopy. This is an exam that is [...] cause of your condition. Treatment may include: ? Antibiotics to treat H. pylori infection. ? Stopping your intake of NSAIDs. ? Medicine to reduce the amount of acid your stomach makes. ? Medicine to treat other conditions, such as Crohn's disease or giardiasis. ? Surgery to treat severe inflammation that causes scarring or severe bleeding. Follow these instructions at home: Medicines ? Take oclz-cmd-ndbpeoa and prescription medicines only as told by your health care provider. ? If you were prescribed antibiotics, take them as told by your health care provider. Do not stop using the antibiotic even if you start to feel better. Eating and drinking ? Eat small, frequent meals. ? Do not drink alcohol. ? Drink enough water to keep your urine pale yellow. ? Follow instructions from your health care provider about what you may eat and drink. You may be asked to avoid: ? Drinks with caffeine. ? Chocolate. ? Peppermint or mint-flavored food or drinks. ? Garlic or onions. ? Spicy foods. ? Rillito fruits. ? Tomato-based foods. ? Fatty or fried foods. General instructions ? Do not use any products that contain nicotine or tobacco. These products include cigarettes, chewing tobacco, and vaping devices, such as e-cigarettes. If you need help quitting, ask your health care provider. Contact a health care provider if: ? You have a fever. ? Your symptoms come back, get worse, or do not get better with treatment. ? You feel dizzy or light-headed. ? You vomit blood. ? You have a lot of blood in your stool. ? You have severe pain in your abdomen. ? Your abdomen swells and is painful. This information is not intended to replace advice given to you by your health care provider. Make sure you discuss any questions you have with your health care provider. Document Revised: 01/09/2023 Document Reviewed: 01/09/2023 [employer] Patient Education ? 2023 [employer] Gastritis, Adult Gastritis is irritation and swelling (inflammation) of the stomach. There are two kinds of gastritis: ? Acute gastritis. This kind develops quickly. ? Chronic gastritis. This kind is much more common. It develops slowly and lasts for a long time. It is important to get help for this condition. If you do not get help, your stomach can bleed, and you can get sores (ulcers) in your stomach. What are the causes? This condition may be caused by: ? Germs that get to your stomach and cause an infection. ? Drinking too much alcohol. ? Medicines you are taking. ? Having too much acid in the stomach. ? Having a disease of the stomach. Other causes may include: ? An allergic reaction. ? Some cancer treatments (radiation). ? Smoking cigarettes or using products that contain nicotine or tobacco. In some cases, the cause of this condition is not known. What increases the risk? ? Having a disease of the intestines. ? Having Crohn's disease. ? Using aspirin or ibuprofen and other NSAIDs to treat other conditions. ? Stress. What are the signs or symptoms? ? Pain in your stomach. ? A burning feeling in your stomach. ? Feeling like you may vomit (nauseous). ? Vomiting or vomiting blood. ? Feeling too full after you eat. ? Weight loss. ? Bad breath. ? Blood in your poop (stool). In some cases, there are no symptoms. How is this treated? This condition is treated with medicines. The medicines that are used depend on what caused the condition. You may be given: ? Antibiotic medicine, if your condition was caused by an infection from germs. ? H2 blockers and similar medicines, if your condition was caused by too much acid in the stomach. Treatment may also include stopping the use of certain medicines, such as aspirin or ibuprofen. Follow these instructions at home: Medicines ? Take ltab-voo-wsrjdaz and prescription medicines only as told by your doctor. ? If you were prescribed an antibiotic medicine, take it as told by your doctor. Do not stop taking it even if you start to feel better. Alcohol use ? Do not drink alcohol if: ? Your doctor tells you not to drink. ? You are , may be , or are planning to become . ? If you drink alcohol: ? Limit your use to: ? 0?1 drink a day for women. ? 0?2 drinks a day for men. ? Know how much alcohol is in your drink. In the [place] one drink equals one 12 oz bottle of beer (355 mL), one 5 oz glass of wine (148 mL), or one 1? oz glass of hard liquor (44 mL). General instructions ? Eat small meals often, instead of large meals. ? Avoid foods and drinks that make you feel worse. ? Drink enough fluid to keep your pee (urine) pale yellow. ? Talk with your doctor about ways to manage stress. You can exercise or do deep breathing, meditation, or yoga. ? Do not smoke or use any products that contain nicotine or tobacco. If you need help quitting, ask your doctor. ? Keep all follow-up visits. Contact a doctor if: ? Your symptoms get worse. ? Your stomach pain gets worse. ? Your symptoms go away and then come back. ? You have a fever. Get help right away if: ? You vomit blood or something that looks like coffee grounds. ? You have black or dark red poop. ? You throw up any time you try to drink fluids. These symptoms may be an emergency. Get help right away. Call your local emergency services (911 in the [place] ? Do not wait to see if the symptoms will go away. ? Do not drive yourself to the hospital. Summary ? Gastritis is irritation and swelling (inflammation) of the stomach. ? You must get help for this condition. If you do not get help, your stomach can bleed, and you can get sores (ulcers) in your stomach. ? You can be treated with medicines for germs or medicines to block too much acid in your stomach. This information is not intended to replace advice given to you by your health care provider. Make sure you discuss any questions you have with your health care provider. Document Revised: 10/30/2021 Document Reviewed: 10/30/2021 [employer] Patient Education ? 2023 [employer] Hiatal Hernia A hiatal hernia occurs when [...] symptoms. ? Medicines. These may include: ? Sevb-yle-fwfigwp antacids. ? Medicines that make your stomach [...] a healthy body weight. ? Avoid putting pressure on your abdomen. Anything that puts pressure on your abdomen increases the amount of acid that may be pushed up into your esophagus. ? Avoid bending over, especially after eating. ? Raise the head of your bed by putting blocks under the legs. This keeps your head and esophagus higher than your stomach. ? Do not wear tight clothing around your chest or stomach. ? Try not to strain when having a bowel movement, when urinating, or when lifting heavy objects. Eating and drinking ? Avoid foods that can worsen GERD symptoms. These may include: ? Fatty foods, like fried foods. ? Rillito fruits, like oranges or lemon. ? Other foods and drinks that contain acid, like orange juice or tomatoes. ? Spicy food. ? Chocolate. ? Eat frequent small meals instead of three large meals a day. This helps prevent your stomach from getting too full. ? Eat slowly. ? Do not lie down right after eating. ? Do not eat 1?2 hours before bed. ? Do not drink beverages with caffeine. These include cola, coffee, cocoa, and tea. ? Do not drink alcohol. General instructions ? Take gqrd-wpy-kuaqstn and prescription medicines only as told by your health care provider. ? Keep all follow-up visits. Your health care provider will want to check that any new prescribed medicines are helping your symptoms. Contact a health care provider if: ? Your symptoms are not controlled with medicines or lifestyle changes. ? You are having trouble swallowing. ? You have coughing or wheezing that will not go away. ? Your pain is getting worse. ? Your pain spreads to your arms, neck, jaw, teeth, or back. ? You feel nauseous or you vomit. Get help right away if: ? You have shortness of breath. ? You vomit blood. ? You have bright red blood in your stools. ? You have black, tarry stools. These symptoms may be an emergency. Get help right away. Call 911. ? Do not wait to see if the symptoms will go away. ? Do not drive yourself to the hospital. Summary ? A hiatal hernia occurs when part of the stomach slides above the muscle that separates the abdomen from the chest. ? A person may be born with a weakness in the hiatus, or a weakness can develop over time. ? Symptoms of a hiatal hernia may include heartburn, trouble swallowing, or sore throat. ? Management of a hiatal hernia includes eating frequent small meals instead of three large meals a day. ? Get help right away if you vomit blood, have bright red blood in your stools, or have black, tarry stools. This information is not intended to replace advice given to you by your health care provider. Make sure you discuss any questions you have with your health care provider. Document Revised: 08/23/2022 Document Reviewed: 08/23/2022 [employer] Patient Education ? 2023 [employer]. Endoscopy Care After Procedure Please read the [...] ATTENTION IF ANY OF THE FOLLOWING OCCUR: ? Excessive nausea (feeling sick to your stomach) and/or vomiting. ? Severe abdominal pain and distention (swelling). ? Trouble swallowing. ? Temperature over 100 F (37.8? C). ? Rectal bleeding or vomiting of blood. Document Released: 02/07/2005 Document Re-Released: 12/18/2006 ExitCare? Patient Information ?2009 [employer]. Common Emergency Awareness Tips IS IT A STROKE? Act FAST and Check for these signs: FACE Does the face look uneven? ARM Does one arm drift down? SPEECH Does their speech sound strange? TIME Call at any sign of stroke Heart Attack Signs Chest discomfort: Most heart attacks involve discomfort in the center of the chest and lasts more than a few minutes, or goes away and comes back. It can feel like uncomfortable pressure, squeezing, fullness or pain. Discomfort in upper body: Symptoms can include pain or discomfort in one or both arms, back, neck, jaw or stomach. Shortness of breath: With or without discomfort. Other signs: Breaking out in a cold sweat, nausea, or lightheaded. Remember, MINUTES DO MATTER. If you experience any of these heart attack warning signs, call to get immediate medical attention! Patient Survey You may receive a survey in the mail asking you about your stay with us. We want to hear from you, please share your experience with us by completing your survey. Thank you for choosing [facility]. Sue Award Nomination The SUE (Diseases Attacking the Immune SYstem) Award is an international recognition program that honors and celebrates the skillful, compassionate care nurses provide every day. Anyone who experiences or observes amazing care being provided by a nurse is encouraged to submit a nomination. To nominate your nurse, use your smart phone to scan the QR code below. Patient Portal You may access all of your results and other medical record information on our secure patient portal. If you are not signed up for this yet, please contact [employer] at [phone] to get signed up today. Patient Name: SHEY OBRIEN I have received this information and my questions have been answered. Patient/[employer] Name: Patient/[employer] Signature: Relationship to Patient: Witness Name/Signature: Date: Result Comment: Electronical ly Signed By: Kassy Barker.br\Date and Time Signed: 03/20/24 13:08 EDT PATIENT EDUCATION - TEXT Observed: 03/20 1:07 PM Status: C Source: [facility] Patient Education - Text Endoscopy Care After [...] Document Re-Released: 12/18/2006 ExitCare? Patient Information ?2009 [employer]. Gastroenterology Hiatal Hernia A hiatal hernia occurs [...] symptoms. ? Medicines. These may include: ? Setl-iqd-prlqjpb antacids. ? Medicines that make your stomach [...] a healthy body weight. ? Avoid putting pressure on your abdomen. Anything that puts pressure on your abdomen increases the amount of acid that may be pushed up into your esophagus. ? Avoid bending over, especially after eating. ? Raise the head of your bed by putting blocks under the legs. This keeps your head and esophagus higher than your stomach. ? Do not wear tight clothing around your chest or stomach. ? Try not to strain when having a bowel movement, when urinating, or when lifting heavy objects. Eating and drinking ? Avoid foods that can worsen GERD symptoms. These may include: ? Fatty foods, like fried foods. ? Rillito fruits, like oranges or lemon. ? Other foods and drinks that contain acid, like orange juice or tomatoes. ? Spicy food. ? Chocolate. ? Eat frequent small meals instead of three large meals a day. This helps prevent your stomach from getting too full. ? Eat slowly. ? Do not lie down right after eating. ? Do not eat 1?2 hours before bed. ? Do not drink beverages with caffeine. These include cola, coffee, cocoa, and tea. ? Do not drink alcohol. General instructions ? Take ctnm-wld-hsiydko and prescription medicines only as told by your health care provider. ? Keep all follow-up visits. Your health care provider will want to check that any new prescribed medicines are helping your symptoms. Contact a health care provider if: ? Your symptoms are not controlled with medicines or lifestyle changes. ? You are having trouble swallowing. ? You have coughing or wheezing that will not go away. ? Your pain is getting worse. ? Your pain spreads to your arms, neck, jaw, teeth, or back. ? You feel nauseous or you vomit. Get help right away if: ? You have shortness of breath. ? You vomit blood. ? You have bright red blood in your stools. ? You have black, tarry stools. These symptoms may be an emergency. Get help right away. Call 911. ? Do not wait to see if the symptoms will go away. ? Do not drive yourself to the hospital. Summary ? A hiatal hernia occurs when part of the stomach slides above the muscle that separates the abdomen from the chest. ? A person may be born with a weakness in the hiatus, or a weakness can develop over time. ? Symptoms of a hiatal hernia may include heartburn, trouble swallowing, or sore throat. ? Management of a hiatal hernia includes eating frequent small meals instead of three large meals a day. ? Get help right away if you vomit blood, have bright red blood in your stools, or have black, tarry stools. This information is not intended to replace advice given to you by your health care provider. Make sure you discuss any questions you have with your health care provider. Document Revised: 08/23/2022 Document Reviewed: 08/23/2022 [employer] Patient Education ? 2023 [employer]Infectious Disease Duodenitis Duodenitis is when the lining of [...] and may get better after you eat. ? Cramps in your abdomen. ? Nausea and vomiting. ? Bloody vomit. ? Stools that are bloody, dark, or look like tar. ? Diarrhea. ? Weight loss. ? Feeling tired (fatigue). How is this diagnosed? This condition may be diagnosed based on your medical history and a physical exam. You may also have tests, such as: ? Blood tests. ? Stool tests. ? A test that checks the gases in your breath. ? An X-ray that is done after you swallow a liquid called barium. The barium makes your digestive tract easier to see. ? Endoscopy. This is an exam that is [...] cause of your condition. Treatment may include: ? Antibiotics to treat H. pylori infection. ? Stopping your intake of NSAIDs. ? Medicine to reduce the amount of acid your stomach makes. ? Medicine to treat other conditions, such as Crohn's disease or giardiasis. ? Surgery to treat severe inflammation that causes scarring or severe bleeding. Follow these instructions at home: Medicines ? Take wsfh-zdf-cshssqs and prescription medicines only as told by your health care provider. ? If you were prescribed antibiotics, take them as told by your health care provider. Do not stop using the antibiotic even if you start to feel better. Eating and drinking ? Eat small, frequent meals. ? Do not drink alcohol. ? Drink enough water to keep your urine pale yellow. ? Follow instructions from your health care provider about what you may eat and drink. You may be asked to avoid: ? Drinks with caffeine. ? Chocolate. ? Peppermint or mint-flavored food or drinks. ? Garlic or onions. ? Spicy foods. ? Rillito fruits. ? Tomato-based foods. ? Fatty or fried foods. General instructions ? Do not use any products that contain nicotine or tobacco. These products include cigarettes, chewing tobacco, and vaping devices, such as e-cigarettes. If you need help quitting, ask your health care provider. Contact a health care provider if: ? You have a fever. ? Your symptoms come back, get worse, or do not get better with treatment. ? You feel dizzy or light-headed. ? You vomit blood. ? You have a lot of blood in your stool. ? You have severe pain in your abdomen. ? Your abdomen swells and is painful. This information is not intended to replace advice given to you by your health care provider. Make sure you discuss any questions you have with your health care provider. Document Revised: 01/09/2023 Document Reviewed: 01/09/2023 [employer] Patient Education ? 2023 [employer].Gastritis, Adult Gastritis is irritation and swelling (inflammation) of the stomach. There are two kinds of gastritis: ? Acute gastritis. This kind develops quickly. ? Chronic gastritis. This kind is much more common. It develops slowly and lasts for a long time. It is important to get help for this condition. If you do not get help, your stomach can bleed, and you can get sores (ulcers) in your stomach. What are the causes? This condition may be caused by: ? Germs that get to your stomach and cause an infection. ? Drinking too much alcohol. ? Medicines you are taking. ? Having too much acid in the stomach. ? Having a disease of the stomach. Other causes may include: ? An allergic reaction. ? Some cancer treatments (radiation). ? Smoking cigarettes or using products that contain nicotine or tobacco. In some cases, the cause of this condition is not known. What increases the risk? ? Having a disease of the intestines. ? Having Crohn's disease. ? Using aspirin or ibuprofen and other NSAIDs to treat other conditions. ? Stress. What are the signs or symptoms? ? Pain in your stomach. ? A burning feeling in your stomach. ? Feeling like you may vomit (nauseous). ? Vomiting or vomiting blood. ? Feeling too full after you eat. ? Weight loss. ? Bad breath. ? Blood in your poop (stool). In some cases, there are no symptoms. How is this treated? This condition is treated with medicines. The medicines that are used depend on what caused the condition. You may be given: ? Antibiotic medicine, if your condition was caused by an infection from germs. ? H2 blockers and similar medicines, if your condition was caused by too much acid in the stomach. Treatment may also include stopping the use of certain medicines, such as aspirin or ibuprofen. Follow these instructions at home: Medicines ? Take ajor-edd-qiymbxj and prescription medicines only as told by your doctor. ? If you were prescribed an antibiotic medicine, take it as told by your doctor. Do not stop taking it even if you start to feel better. Alcohol use ? Do not drink alcohol if: ? Your doctor tells you not to drink. ? You are , may be , or are planning to become . ? If you drink alcohol: ? Limit your use to: ? 0?1 drink a day for women. ? 0?2 drinks a day for men. ? Know how much alcohol is in your drink. In the [place] one drink equals one 12 oz bottle of beer (355 mL), one 5 oz glass of wine (148 mL), or one 1? oz glass of hard liquor (44 mL). General instructions ? Eat small meals often, instead of large meals. ? Avoid foods and drinks that make you feel worse. ? Drink enough fluid to keep your pee (urine) pale yellow. ? Talk with your doctor about ways to manage stress. You can exercise or do deep breathing, meditation, or yoga. ? Do not smoke or use any products that contain nicotine or tobacco. If you need help quitting, ask your doctor. ? Keep all follow-up visits. Contact a doctor if: ? Your symptoms get worse. ? Your stomach pain gets worse. ? Your symptoms go away and then come back. ? You have a fever. Get help right away if: ? You vomit blood or something that looks like coffee grounds. ? You have black or dark red poop. ? You throw up any time you try to drink fluids. These symptoms may be an emergency. Get help right away. Call your local emergency services (911 in the [place] ? Do not wait to see if the symptoms will go away. ? Do not drive yourself to the hospital. Summary ? Gastritis is irritation and swelling (inflammation) of the stomach. ? You must get help for this condition. If you do not get help, your stomach can bleed, and you can get sores (ulcers) in your stomach. ? You can be treated with medicines for germs or medicines to block too much acid in your stomach. This information is not intended to replace advice given to you by your health care provider. Make sure you discuss any questions you have with your health care provider. Document Revised: 10/30/2021 Document Reviewed: 10/30/2021 [employer] Patient Education ? 2023 [employer]. OUTPATIENT SURGERY DISCHARGE INSTRUCTION Observed: 03/20/2024 12:58 PM Status: F Source: [facility] Outpatient Surgery Discharge Instruction [address] [address] Patient Discharge Instructions PERSON INFORMATION Name: SHEY OBRIEN Date of : 1950 Current Date: 03/20/2024 12:58:56 PHYSICIANS Admitting Physician: Dafne Spears MD Discharge Diagnosis: SHEY OBRIEN has been [...] THE NEAREST EMERGENCY ROOM OR CALL 911 Tony, ALPA OBRIENON, have received the attached patient education materials/instructions and have verbalized understanding: May we do a follow up call? Yes No I was present when discharge instructions were given Patient Signature Date Clinican/Nurse Signature Date Follow up: Pharmacy Information: You may receive a survey from Elisa Giang asking you to rate your care experience. Your feedback is important and will help us understand what we do well and how we can improve the quality of care we provide to you, your loved ones and our community. It?s an honor to serve you. Thank you for choosing [facility] HERE ARE THE MEDICATION CHANGES THAT OCCURRED [...] (at bedtime). fluticasone nasal (Flonase 0.05 mg/inh Kimball) 2 Sprays Nasal Inhalation every day. losartan [...] sleep. PATIENT EDUCATION INFORMATION Instructions: Medication Leaflets: INPATIENT PATIENT SUMMARY Observed: 03/10 12:58 PM Status: F Source: [facility] Inpatient Patient Summary [place] [id number] [facility] Clinical Discharge Instructions PERSON INFORMATION Name: SHEY OBRIEN PHYSICIANS Admitting Physician: Dafne Spears MD Attending Physician: Dafne Spears MD PCP: LATRELL JACK MD Discharge Diagnosis: [...] (at bedtime). fluticasone nasal (Flonase 0.05 mg/inh Kimball) 2 Sprays Nasal Inhalation every day. losartan [...] (at bedtime) as needed for sleep. Comment: ENDOSCOPIC PROCEDURE REPORT - OTHER Obse rved: 03/20/2024 12:54 PM Status: F Source: [facility] Endoscopic Procedure Report - Other Patient: SHEY [...] otherwise normal examined duodenum Images Procedure images: Rec1_hd_video_2023___[id number].jpg Rec1_hd_video____[id number].jpg Rec1_hd_video_2023____[id number].jpg Rec1_hd_video____15_326.jpg Rec1_hd_video____[id number].jpg Rec1_hd_video___[id number].jpg . Post-Procedure Complications: none. Estimated blood loss: [...] surgery referral is indicated, will be ordered Result Comment: Electronical ly Signed By: Yovanny OLIVO, Dafne Torres\.br\Date and Time Signed: 03/20/24 12:58 EDT Other Comment: Missing Attac hment - attachment storage system not supported [id number] Can be viewed in source system Missing Attachment - attachment storage system not supported [id number] Can be viewed in source systemMissing Attachment - attachment storage system not supported [id number] Can be viewed in source systemMissing Attachment - attachment storage system not supported [id number] Can be viewed in source systemMissing Attachment - attachment storage system not supported [id number] Can be viewed in source systemMissing Attachment - attachment storage system not supported [id number] Can be viewed in source system SURGICAL PATHOLOGY REPORT Observed: 03/10 12:52 PM Status: F Source: [place] [address] [place] [address]- Surgical Pathology Report Collected Date/Time: 03/20/2024 12:52 EDT Pathologist: Pete Evans MD Received Date/Time: 03/21/2024 08:07 EDT Yovanny OLIVO, Dafne Spears MD, Dafne Valentin Surgical Pathology Report - [...] characteristics were determined by the [facility]. They have not been cleared or approved by the US Food and Drug Administration. The FDA has determined that such clearance or approval is not necessary. These tests are used for clinical purposes. They should not be regarded as investigational or for research. Appropriate positive and negative controls are performed and are acceptable. Performed By: #### [id number] # ### [facility] [address] [place] [address] SURGICAL PATHOLOGY REPORT Observed: 03/10 12:52 PM Status: F Source: [facility] r [address] [place] [address]- Surgical Pathology Report Collected Date/Time: 03/20/2024 12:52 EDT Pathologist: Pete Evans MD Received Date/Time: 03/21/2024 08:07 EDT Yovanny OLIVO, Dafne Spears MD, Dafne Valentin Surgical Pathology Report - [...] characteristics were determined by the [facility]. They have not been cleared or approved by the US Food and Drug Administration. The FDA has determined that such clearance or approval is not necessary. These tests are used for clinical purposes. They should not be regarded as investigational or for research. Appropriate positive and negative controls are performed and are acceptable. Performed By: #### [id number] # ### [facility] [address] [place] [address] MAIN OR INTRAOPERATIVE RECORD Observed: 03/20/2024 12:49 PM Status: C Source: [facility] Main OR Intraoperative Recor d IntraOp Document Type FT Summary Primary Physician: Dafne Spears MD Finalized Date/Time: 03/22/24 14:46:15 Pt. Name: SHEY OBRIEN Tamie/Sex: 1950 Female Med Rec #: [id number] Physician: Dafne Spears MD Financial #: [id number] Pt. 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 Spears supervising procedure. Last Modified By: Mynor FORBES, Violette Lopez RN, Essence Pinto RN 03/22/24 14:45:45 03/20/24 12:56:36 03/20/24 12:56:36 Entry 4 Case Attendee Essence Lopez RN Role Performed Convex Grinder Operator - Primary Time In 03/20/24 12:44:00 Time [...] Given Participants Анна Ivory CST, Sarmini MD, Muhammad Talal, Essence Lopez RN Time Out Complete 03/20/24 [...] and tissue Entry 1 Skin Integrity Intact, Chantilly, Warm, & Skin Abnormality No Dry Outcomes [...] Extended Right Leg Position Extended Positioning Device Safety Strap, Pillow Under Head Large Press Points Checked Yes By Essence Lopez RN Outcomes Met? Yes Last Modified By: Essence Lopez RN 03/20/24 12:47:53 Post-Care Text: The patient is free from signs and symptoms of injury related to positioning Patient Care Devices FT Pre-Care Text: Implements protective measures to prevent skin/ tissue injury due to thermal or mechanical sources Entry 1 Entry 2 Equipment Type ENDOSCOPY VIDEO SYSTEM MONITOR CHARGE SURGERY Equipment Number E1 E1 Equipment Setting Outcomes Met? Yes Yes Last Modified By: Essence Lopez RN, RN, Kara N 03/20/24 12:48:09 03/20/24 12:48:09 Post-Care Text: The patient is free from signs and symptoms of injury caused by extraneous objects Transport To OR FT Pre-Care Text: Transports according to individual needs. Evaluates for signs and symptoms of skin and tissue injury as a result of transfer or transport Entry 1 Via Cart By Essence Lopez RN Safety Precautions Side Rails Up Outcomes Met? Yes Last Modified By: Essence Lopez RN 03/20/24 12:48:18 Post-Care Text: The patient is free from signs and symptoms of injury related to transfer/transport Departure From OR FT Pre-Care Text: Transports according to individual needs. Evaluates for signs and symptoms of skin and tissue injury as a result of transfer or transport. Entry 1 Via Cart Safety Precautions Side Rails Up PostOp Destination PACU Transported By Essence Lopez RN Patient Status Stable Skin. Condition Intact, Chantilly, Warm, & Dry Airway Maintenance Oxygen in Use? No Airway Device N/A Outcomes Met? Yes Last Modified By: Essence Lopez RN 03/20/24 12:48:42 Post-Care Text: The patient is free from signs and symptoms of injury related to transfer/transport General Comments: Report given to PACU,RN/KS,physical therapy director Administration FT Pre-Care Text: Verifies allergies, administers prescribed medications and solutions, administers prescribed antibiotic therapy and immunizing agents as ordered, evaluates response to medications Administers prescribed medications and solutions Entry 1 Expiration Date Yes Outcomes Met? Yes Verified Last Modified By: Essence Lopez RN 03/20/24 12:48:48 Post-Care Text: The patient received appropriate medication(s) safely administered during the perioperative period For [place] please see scanned medication reconcilliation form for medications used at the field during the procedure. Cultures & Specimens FT Pre-Care Text: Manages specimen handling and disposition Manages culture specimen collection Entry 1 Cultures Ordered n/a Specimens Ordered Yes Specimen Disposition Designated OR Area Frozen Section Times Outcomes Met? Yes Last Modified By: Essence Lopez RN 03/20/24 12:55:29 Post-Care Text: The patient is free from signs and symptoms of injury caused by extraneous objects The patient is free from signs and symptoms of infection Sign Out FT Entry 1 Before Patient Leaves OR Nurse verbally Yes Nurse verbally n/a confirms with the confirms with the team the name of team that the procedure(s) instrument, sponge, recorded and needle counts are correct (or N/A) Nurse verbally Yes Nurse verbally Yes confirms with the confirms with the team how the team whether there specimen is labeled are any equipment (including patient problems to be name), if applicable addressed Sign Out Complete 03/20/24 12:53:00 Last Modified By: Essence Lopez RN 03/20/24 12:55:36 Case Comments <None> Finalized By: Violette Lowe CST Document Signatures Signed By: Essence Lopez RN 03/20/24 12:56 Violette Lowe CST 03/22/24 14:46 MAIN OR PACU I RECORD Observed: 03/20/20 12:49 PM Status: F Source: [facility] Main OR PACU I Record PACU Phase I Document Type FT Summary Primary Physician: Dafne Spears MD Finalized Date/Time: 03/20/24 13:37:02 Pt. Name: KARYNALPAON Tamie/Sex: 1950 Female Med Rec #: [id number] Physician: Dafne Spears MD Financial #: [id number] Pt. Type: O Room/Bed: / Admit/Disch: 03/20/24 [...] Signed By: Kassy Barker I 03/20/24 13:37 ENDOSCOPIC PROCEDURE REPORT - OTHER Observed: 03/20/2024 12:47 PM Status: F Source: [facility] Endoscopic Procedure Report - Other Patient: SHEY [...] 1 tab, Oral, Daily Flonase 0.05 mg/inh Kimball: 2 spray(s), Nasal, Daily, Refill(s) 0, Dry [...] a day (at bedtime) Flonase 0.05 mg/inh Kimball 2 spray(s), Nasal, Daily losartan 25 mg [...] All Problems HTN (hypertension) / SNOMED CT 8250562340 / Confirmed Chronic obstructive pulmonary disease / SNOMED CT 64044939 / Confirmed Insomnia / SNOMED CT 524941345 / Confirmed Seasonal allergic rhinitis / SNOMED CT 823470278 / Confirmed Dyslipidemia / SNOMED CT 3310524002 / Confirmed BMI 39.0-39.9,adult / SNOMED CT 426100026 / Confirmed Morbid obesity / SNOMED CT 091230134 / Confirmed GERD (gastroesophageal reflux disease) / SNOMED CT 219559651 / Confirmed Hiatal hernia / SNOMED CT 520114026 / Confirmed EDWIN (obstructive sleep apnea) / SNOMED CT 641058164 / Confirmed Lower extremity edema / SNOMED CT 337864991 / Confirmed TIA (transient ischemic attack) / SNOMED CT 525010831 / Confirmed Screening for malignant neoplasm of colon / SNOMED CT 020276349 / Confirmed Dysphagia / SNOMED CT 75521283 / Confirmed Histories Past Medical History: Resolved Hernia (076792603): Resolved. Sleep apnea (425427714): Resolved. Family History: Father Alcoholism Primary malignant neoplasm of lung COPD Mother Cardiac arrest Alzheimer's disease Procedure history: Colonoscopy (313022413) on 10/13/2023 at 73 Years. ORIF - Open reduction of fracture of ankle with internal fixation (947893119257216). Meniscal repair (854316773). Tonsillectomy (214375823). Hand tendon repaired (168792307). Social History Social & Psychosocial Habits Alcohol [...] Impression and Plan Impression: DYSPHAGIA Plan: -EGD Result Comment: Electronical ly Signed By: Yovanny OLIVO, Dafne Torres\.br\Date and Time Signed: 03/20/24 12:47 EDT ENDOSCOPIC PROCEDURE REPORT - OTHER Observed: 03/20/2024 12:47 PM Status: UNK Source: [facility] Endoscopic Procedure Report - Other Patient: SHEY OBRIEN Age: 73 years Sex: Female : 1950 Associated Diagnoses: None Author: Yovanny OLIVO, Dafne oTrres Preoperative Information Indication for procedure and diagnosis: [...] 1 tab, Oral, Daily Flonase 0.05 mg/inh Kimball: 2 spray(s), Nasal, Daily, Refill(s) 0, Dry [...] a day (at bedtime) Flonase 0.05 mg/inh Kimball 2 spray(s), Nasal, Daily losartan 25 mg [...] All Problems HTN (hypertension) / SNOMED CT 9184518247 / Confirmed Chronic obstructive pulmonary disease / SNOMED CT 47852213 / Confirmed Insomnia / SNOMED CT 567054148 / Confirmed Seasonal allergic rhinitis / SNOMED CT 919879330 / Confirmed Dyslipidemia / SNOMED CT 6281128877 / Confirmed BMI 39.0-39.9,adult / SNOMED CT 280950483 / Confirmed Morbid obesity / SNOMED CT 924324962 / Confirmed GERD (gastroesophageal reflux disease) / SNOMED CT 263494642 / Confirmed Hiatal hernia / SNOMED CT 395887057 / Confirmed EDWIN (obstructive sleep apnea) / SNOMED CT 787388107 / Confirmed Lower extremity edema / SNOMED CT 773274610 / Confirmed TIA (transient ischemic attack) / SNOMED CT 829140419 / Confirmed Screening for malignant neoplasm of colon / SNOMED CT 593654409 / Confirmed Dysphagia / SNOMED CT 07638819 / Confirmed Histories Past Medical History: Resolved Hernia (868756141): Resolved. Sleep apnea (758383615): Resolved. Family History: Father Alcoholism Primary malignant neoplasm of lung COPD Mother Cardiac arrest Alzheimer's disease Procedure history: Colonoscopy (339930915) on 10/13/2023 at 73 Years. ORIF - Open reduction of fracture of ankle with internal fixation (965855003212875). Meniscal repair (403793187). Tonsillectomy (598348374). Hand tendon repaired (293095903). Social History Social & Psychosocial Habits Alcohol [...] (MAR 20:14) SBP H 173 mmHg (MAR 20 11:14) DBP 72 mmHg (MAR 20:14) Weight 100 kg (MAR 20:14) General: in Nad Abdomen: Soft, NTND Impression and Plan Impression: DYSPHAGIA Plan: -EGD Result Comment: wrong folder Electronically Signed By: Yovanny OLIVO, Dafne Torres\.br\Date and Time Signed: 03/20/24 12:47 EDT PROCEDURAL Observed: 03/20/2024 12:42 PM Status: F Source: [facility] Procedural Patient: SHEY OBRIEN Age: 73 years [...] 1 tab, Oral, Daily Flonase 0.05 mg/inh Kimball: 2 spray(s), Nasal, Daily, Refill(s) 0, Dry [...] a day (at bedtime) Flonase 0.05 mg/inh Kimball 2 spray(s), Nasal, Daily losartan 25 mg [...] All Problems BMI 39.0-39.9,adult / SNOMED CT 182602741 / Confirmed Chronic obstructive pulmonary disease / SNOMED CT 03133383 / Confirmed Dyslipidemia / SNOMED CT 7274465272 / Confirmed Dysphagia / SNOMED CT 48938426 / Confirmed GERD (gastroesophageal reflux disease) / SNOMED CT 520824073 / Confirmed Hiatal hernia / SNOMED CT 146684419 / Confirmed HTN (hypertension) / SNOMED CT 0818004890 / Confirmed Insomnia / SNOMED CT 801283305 / Confirmed Lower extremity edema / SNOMED CT 592880503 / Confirmed Morbid obesity / SNOMED CT 526993144 / Confirmed EDWIN (obstructive sleep apnea) / SNOMED CT 807764775 / Confirmed Screening for malignant neoplasm of colon / SNOMED CT 327998274 / Confirmed Seasonal allergic rhinitis / SNOMED CT 268124880 / Confirmed TIA (transient ischemic attack) / SNOMED CT 131272595 / Confirmed Resolved: At risk for falls / SNOMED CT 877326192 Problem added when Risk for Falls Careplan was initiated. Resolved due to patient discharge. Resolved: Hernia / SNOMED CT 292492766 Resolved: Potential for deficient knowledge of cerebrovascular accident (CVA) / IMO 72301302 problem added based on Stroke Powerplan ordered. Resolved due to patient discharge. Resolved: Sleep apnea / SNOMED CT 580399844, Active Problems (14) BMI 39.0-39.9,adult Chronic obstructive pulmonary disease Dyslipidemia Dysphagia GERD (gastroesophageal reflux disease) Hiatal hernia HTN (hypertension) Insomnia Lower extremity edema Morbid obesity EDWIN (obstructive sleep apnea) Screening for malignant neoplasm of colon Seasonal allergic rhinitis TIA (transient ischemic attack) Histories Past Medical History: Resolved Hernia (090955705): Resolved. Sleep apnea (462365166): Resolved. Family History: Primary malignant neoplasm of lung Father COPD Father Alcoholism Father Alzheimer's disease Mother Cardiac arrest Mother Procedure history: Colonoscopy (123642535) on 10/13/2023 at 73 Years. ORIF - Open reduction of fracture of ankle with internal fixation (062732618053812). Meniscal repair (422321832). Tonsillectomy (314961339). Hand tendon repaired (694497881). Social History Social & Psychosocial Habits Alcohol 02/26/2024 Frequency: 1-2 times per year Substance Abuse Comment: denies - 03/03/2021 07:19 - Carolyn Stewart RN 02/26/2024 Risk Assessment: Denies Substance Abuse Tobacco 02/26/2024 Tobacco Use: Former smoker, quit more Smokeless tobacco use: Never Type: Cigarettes 02/26/2024 Tobacco Use: Former smoker, quit more . Physical Examination Vital Signs 03/20/2024 11:14 EDT Temperature Temporal Artery 36.5 DegC Heart Rate Monitored 72 bpm Respiratory Rate 18 br/min Systolic Blood Pressure 173 mmHg HI Diastolic Blood Pressure 72 mmHg Blood Pressure Location Left arm SpO2 95 % Vital Signs (last 24 hrs) Last Charted Temp Temporal 36.5 DegC (MAR 20 11:14) Heart Rate Monitored 72 bpm (MAR 20:14) SBP H 173 mmHg (MAR 20:14) DBP 72 mmHg (MAR 20:14) Weight 100 kg (MAR 20:14) Measurements from flowsheet : Measurements 03/20/2024 11:14 EDT Height/Length Measured 162 cm Height/Length Dosing 162.0 cm Weight Dosing 100.0 kg Weight Measured 100 kg Airway: Mallampati classification: II (soft palate, fauces, uvula visible). Respiratory: Lungs are clear to auscultation, Respirations are non-labored, adequate air exchange. Cardiovascular: Regular rhythm, No murmur. Review / Management Results review: No qualifying data available . Plan [place] [employer] (ASA) physical status classification: Class III. Anesthetic Preoperative Plan: Anesthesia General. MAIN OR PREOPERATIVE RECORD Observed: 12:15 PM Status: F Source: [facility] Main OR Preoperative Record Holding Area Document Type FT Summary Primary Physician: Dafne Spears MD Finalized Date/Time: 03/20/24 11:17:32 Pt. Name: SHEY OBRIEN/Sex: 1950 Female Med Rec #: [id number] Physician: Dafne Spears MD Financial #: [id number] Pt. Type: O Room/Bed: / Admit/Disch: 03/20/24 [...] Signed By: Essence Lopez RN 03/20/24 11:17 AMBULATORY VISIT SUMMARY Observed: 02/25 9:48 AM Status: F Source: [facility] Ambulatory Visit Summary KARYN SHEY :1950 Visit Date:02/26/2024 Ambulatory Visit Instructions Your [...] mg Tab) fluticasone nasal (Flonase 0.05 mg/inh Kimball) losartan (losartan 25 mg Tab) multivitamin with [...] Unchanged fluticasone nasal (Flonase 0.05 mg/ inh Kimball) 2 Sprays Nasal Inhalation Every day Contact [...] you for choosing us for your care. GASTROENTEROLOGY OFFICE/CLIN IC NOTE Observed: 02/26/2024 9:26 AM Status: F Source: [facility] Gastroenterology Office/Clin ic Note Chief Complaint dysphagia HPI Staff Patient [...] or gangrene) reports she had esophagram in [place] no egd in the past declined surgery [...] a day (at bedtime) Flonase 0.05 mg/inh Kimball, 2 spray(s), Nasal, Daily losartan 25 mg [...] virus vaccine, inactivated 05/03/2022 Recorded SARS-CoV-2 (COVID-19) [id number] 05/03/2022 Recorded influenza virus vaccine, inactivated 04/12/2021 [...] Recorded influenza virus vaccine, inactivated 04/16/2015 Recorded Result Comment: Electronical ly Signed By: Yovanny OLIVO, Dafne Torres\.br\Date and Time Signed: 02/26/24 09:38 EDT ALLERGIES DATE TYPE / CODE NAME / CODE REACTION SEVERITY SOURCE Drug Class/741170728(SNO MED CT) NO KNOWN ALLERGIES [facility] /416064681(SNOMED CT) No Known Allergies [facility] ENCOUNTERS ADMIT/DISCHARGE ACCOUNT NUMBER ADMITTING ENCOUNTER CLASS LOCATION SOURCE 09/26/2024/09/27/19 [id number] Ambulatory Building:[facility] EPIC 08/27/2024/08/27/19 [id number] Ambulatory Building:[facility] EPIC 08/07/2024/08/07/19 [id number] [facility] 07/24/2024/07/26/19 [id number] XAVIER BOYD [facility][id number] m: [id number]: [id number] [facility] 07/23/2024/07/23/19 [id number] [facility]ulatory [facility]XR21 [facility] 07/23/2024/07/23/19 [id number] [facility]EKGA [facility] 07/23/2024/07/23/19 [id number] [facility]AD12 [facility] 07/23/2024/07/23/19 [id number] [facility]ANA [facility] 07/23/2024/07/23/19 [id number] [facility]ulatory [facility]LB15 [facility] 06/24/2024/06/24/20 24 [id number] [place] [facility] 06/10/2024/06/10/20 24 [id number] [place] 05/30/2024/05/30/20 24 [id number] Ambulatory Building:[facility] 05/27/2024/05/27/20 24 [id number] [facility] [place]/15/2024/05/15/20 24 [id number] Ambulatory Building:[facility] 05/06/2024/05/06/20 24 [id number] [facility] [place] 04/29/2024/04/29/20 24 [id number] [facility]ulatory [facility] 04/15/2024/04/15/20 24 [id number] [place] 04/11/2024/04/11/20 24 [id number] Ambulatory Building: [facility] 03/26/2024/03/26/20 24 [id number] Ambulatory Building: [facility] 03/26/2024/03/26/20 24 [id number] LioneliCarolynnd Talal Ambulatory [facility] 03/25/2024/03/25/20 24 [id number] Ambulatory Building:[facility] 03/20/2024/03/20/20 24 [id number] SardeonteiDestinWilson Talal Ambulatory [facility] :FT [facility] 03/07/2024/03/07/20 24 [id number] Ambulatory Building:R [facility]O [facility] 02/26/2024/02/26/20 24 [id number] Ambulatory [facility] Room: CD:[id number] 3 [facility] 02/13/2024 [id number] Ambulatory [place] [facility] 02/09/2024/02/09/20 24 [id number] Ambulatory Building:[facility] PAYERS ENCOUNTER GUARANTOR PAYER SUBSCRIBER SOURCE 09/26/2024 SHEY LOPEZ: [place] [address]Jxf: () Primary Insurance:MEDICAREPolic y Number: [id number] Date:7473-05-96Pahv Name:Medicare SHARON L MCHENRYDOB: [id number] [place] [address] [facility] 09/26/2024 Secondary Insurance:HUMANAPolicy Number: [id number] Date:2024-07-10 SHEY CASTANEDAB: [id number] [place] [address] [facility] 08/27/2024 SHEY CASTANEDAB: [place] [address]Pgy: () Primary Insurance:MEDICAREPolic y Number: [id number] Date:6196-16-20Frvl Name:Medicare SHARON L MCHENRYDOB: [id number] [facility] [facility] 08/27/2024 Secondary Insurance:HUMANAPolicy Number: [id number] Date:2016-10-08 SHEY CASTANEDAB: [id number] [place] [address] [facility] 08/07/2024 Primary Insurance:MEDICARE A AND BPolicy Number: [id number] Date:1340-43-64Uvyg Name:Ashly CASTANEDAB: [id number] [place] [address] [facility] 08/07/2024 Secondary Insurance:HUMANA MEDICARE SUPPLEMENTPolicy Number: [id number] Date:3762-21-18Mhie Name:Alex CASTANEDAB: [id number] [place] [address] [facility] 07/24/2024 Primary Insurance:MEDICARE A AND BPolicy Number: [id number] Date:3356-77-60Ixgr Name:Ashly LOPEZ: [id number] [address] 07/24/2024 Secondary Insurance:HUMANA MEDICARE SUPPLEMENTPolicy Number: [id number] Date:9449-87-43Fisz Name:Alex CASTANEDAB: [id number] [address] 07/23/2024 Primary Insurance:MEDICARE A AND BPolicy Number: [id number] Date:2502-24-33Kjdo Name:Ashly LOPEZ: [id number] [address] 07/23/2024 Secondary Insurance:HUMANA MEDICARE SUPPLEMENTPolicy Number: [id number] Date:4286-97-22Vakt Name:Alex LOPEZ: [id number] [address] 07/23/2024 Primary Insurance:MEDICARE A AND BPolicy Number: [id number] Date:9419-40-10Xsyr Name:Ashly LOPEZ: [id number] [address] 07/23/2024 Secondary Insurance:HUMANA MEDICARE SUPPLEMENTPolicy Number: [id number] Date:1823-24-90Xlsj Name:Alex CASATNEDAB: [id number] [facility], [address] 07/23/2024 Primary Insurance:MEDICARE A AND BPolicy Number: [id number] Date:9532-32-95Bdfk Name:Ashly LOPEZ: [id number] [address] 07/23/2024 Secondary Insurance:HUMANA MEDICARE SUPPLEMENTPolicy Number: [id number] Date:5782-99-97Hmmj Name:Alex CASTANEDAB: [id number] [place] [address] [facility] 07/23/2024 Primary Insurance:MEDICARE A AND BPolicy Number: [id number] Date:1031-56-60Efcd Name:Ashly CASTANEDAB: [id number] [place] [address] [facility] 07/23/2024 Secondary Insurance:HUMANA MEDICARE SUPPLEMENTPolicy Number: [id number] Date:3567-49-80Ksrz Name:Alex CASTANEDAB: [id number] [facility]11 [facility] 06/24/2024 Shey CastnaedaB: [place] [address] [facility] Number: Effective Date:3125-67-45Nmqj Name:MED [address] [address], [place] [address]EN: Shey CastanedaB: [id number] [place] [phone] 06/24/2024 Secondary Insurance:HumanaPolicy Number: Effective Date:9723-50-74Lrrz Name:[facility] [address] [place] [address]EB: Shey CastanedaB: [id number] [place] [phone] 06/10/2024 Shey CastanedaB: [place] [phone] Primary Insurance:[facility] Number: Effective Date:2962-36-58Jrvx Name:MED [address] [address], [place] [address]TO: Shey CastanedaB: [id number] [place] [address] 06/10/2024 Secondary Insurance:HumanaPolicy Number: Effective Date:9494-73-47Rtbm Name:MICHAEL [place] [address]WB: Shey ObrienB: [id number] [place] [address] 05/30/2024 SHEY OBRIENB: [place] [address]Fve: () Primary Insurance:MEDICAREPolic y Number: [id number] Date:4136-65-52Wlco Name:Medicare SHEY OBRIENB: [id number] [place] [phone] [facility] 05/30/2024 Secondary Insurance:HUMANAPolicy Number: [id number] Date:2016-10-08 SHEY OBRIENB: [id number] [place] [address] [facility] 05/27/2024 Shey Diaz LeonelB: [place] [phone] Primary Insurance:[facility] Number: Effective Date:2853-23-93Kkud Name:[facility] [address], [place] [address]EF: Shey ObrienB: [id number] [place] [phone] 05/27/2024 Secondary Insurance:HumanaPolicy Number: Effective Date:4249-13-52Uavz Name:MICHAEL [place] [address]AF: Shey ObrienB: [id number] [place] [address] 05/15/2024 SHEYÁNGELA CASTANEDAB: [place] [address]Jmz: () Primary Insurance:MEDICAREPolic y Number: [id number] Date:8889-43-63Ncpv Name:Medicare SHARON L MCHENRYDOB: [id number] [place] [address] [facility] 05/15/2024 Secondary Insurance:HUMANAPolicy Number: [id number] Date:2016-10-08 SHEY CASTANEDAB: [id number] [place] [address] [facility] 05/06/2024 Shey CastanedaB: [place] [address] Primary Insurance:[facility] Florida[facility] Number: Effective Date:9005-88-51Ebfn Name:MED [address] [place] [address]ZV: Shey CastanedaB: [id number] [place] [phone] 05/06/2024 Secondary Insurance:HumanaPolicy Number: Effective Date:0737-09-44Kvqq Name:COMP [address] [place] [address]ZY: Shey CastanedaB: [id number] [place] [phone] 04/29/2024 Primary Insurance:MEDICARE A AND BPolicy Number: [id number] Date:4168-24-77Szti Name:Ashly LOPEZ: [id number] [place] [address] [facility] 04/29/2024 Secondary Insurance:HUMANA MEDICARE SUPPLEMENTPolicy Number: [id number] Date:1492-32-91Siyp Name:Alex CASTANEDAB: [id number] [place] [address] [facility] 04/15/2024 Shey CastanedaB: [place] [address] Primary Insurance:Berkley PadronPolicy Number: Effective Date:3803-66-03Mhua Name:[facility] [address] [address], [place] [address]GU: Shey ObrienB: [id number] [place] [address] 04/15/2024 Secondary Insurance:HumanaPolicy Number: Effective Date:6595-99-31Zipy Name:[facility] [address] [place] [address]HF: Shey ObrienB: [id number] [place] [address] 04/11/2024 SHEY OBRIENB: [place] [address]Jij: (HP) Primary Insurance:MEDICAREPolic y Number: [id number] Date:8520-08-58Qtpp Name:Medicare SHEY CASTANEDAB: [id number] [place] [address] [facility] 04/11/2024 Secondary Insurance:HUMANAPolicy Number: [id number] Date:2016-10-08 SHEY OBRIENDOB: [id number] [place] [address] [facility] 03/26/2024 SHEY CASTANEDAB: [place] [address]Zcj: (HP) Primary Insurance:MEDICAREPolic y Number: [id number] Date:0492-34-30Kxvo Name:Medicare SHEY CASTANEDAB: [id number] [place] [address] [facility] 03/26/2024 Secondary Insurance:HUMANAPolicy Number: [id number] Date:2016-10-08 SHEY CASTANEDAB: [id number] [place] [address] [facility] 03/26/2024 SHEY CASTANEDAB: [address] STTel: ~[phone] (HP) Primary Insurance:MEDICAREPolic y Number: [id number] Date:2855-75-15TP [place] [address]ST: SHEY HIRSCH [facility] 03/26/2024 Secondary Insurance:HUMANAPolicy Number: [id number] Date:2024-03-21 SHEY HIRSCH [facility] 03/25/2024 SHEY OBRIENB: [place] [address]Eef: (HP) Primary Insurance:MEDICAREPolic y Number: [id number] Date:3575-15-86Tqlb Name:Medicare SHEY CASTANEDAB: [id number] [place] [address] [facility] 03/25/2024 Secondary Insurance:HUMANAPolicy Number: [id number] Date:2016-10-08 SHEY CASTANEDAB: [id number] [place] [address] [facility] 03/20/2024 SHEY CASTANEDAB: [address] STTel: ~[phone] (HP) Primary Insurance:MEDICAREPolic y Number: [id number] Date:3879-88-65[address] [address]AU: SHEY HIRSCH [facility] 03/20/2024 Secondary Insurance:HUMANAPolicy Number: [id number] Date:2024-02-26 SHEY HIRSCH [facility] 03/07/2024 SHEY CASTANEDAB: [place] [address]Bqa: (HP) Primary Insurance:MEDICAREPolic y Number: [id number] Date:1704-93-00Hmtu Name:Medicare SHEY CASTANEDAB: [id number] [place] [address] [facility] 03/07/2024 Secondary Insurance:HUMANAPolicy Number: [id number] Date:2016-10-08 SHEY CASTANEDAB: [id number] [place] [address] [facility] 02/26/2024 SHEY CASTANEDAB: [facility]el: ~([phone] (HP) Primary Insurance:MEDICAREPolic y Number: [id number] Date:8071-39-70LO[address] [address]DB: SHEY HIRSCH [facility] 02/26/2024 Secondary Insurance:HUMANAPolicy Number: [id number] Date:2023-09-12 SHEY HIRSCH [facility] 02/09/2024 SHEY CASTANEDAB: [place] [address]Ael: (HP) Primary Insurance:MEDICAREPolic y Number: [id number] Date:7453-26-62Bnxu Name:Medicare SHEY CASTANEDAB: [id number] [place] [address] [facility] 02/09/2024 Secondary Insurance:HUMANAPolicy Number: [id number] Date:2016-10-08 SHEY LOPEZ: [id number] [place] [address] [facility] EPIC
[2024-12-01 08:22] VITALS: BP 158/91; PULSE 92; TEMP 36.3; O2SAT 96; BMI 36.6
--- NOTE | 2024-12-01 08:37 | ED.GENADUL1 ---
HPI HPI - General Adult General Chief complaint: Back Pain/Injury Stated complaint: BACK PAIN Time Seen by Provider: 12/01/24 08:22 Source: patient Mode of arrival: Wheelchair Limitations: no limitations History of Present Illness HPI narrative: 74-year-old female presents for lower back pain. She has had it for a week and a half and there was no injury. She has a history of back issues and sees pain management for that reason. No dysuria or hematuria. She has not had fever or weakness in her legs. The pain is moderate to severe and worse when she moves into certain positions. Related Data Home Medications ?Medication ?Instructions ?Recorded ?Confirmed aspirin 81 mg tablet,delayed 81 mg PO DAILY 04/16/24 12/01/24 release (Adult Aspirin Regimen) atorvastatin 40 mg tablet 40 mg PO DAILY 04/16/24 12/01/24 calcium carbonate (Calcium 500) 500 mg PO BID 04/16/24 12/01/24 donepezil 5 mg tablet (Aricept) 5 mg PO DAILY 04/16/24 12/01/24 famotidine 40 mg tablet 40 mg PO DAILY 04/16/24 12/01/24 fluticasone propionate 50 2 spray intranasal DAILY PRN 04/16/24 12/01/24 mcg/actuation nasal allergy symptoms spray,suspension (24 Hour Allergy Relief) losartan 50 mg tablet 50 mg PO DAILY 04/16/24 12/01/24 pantoprazole 40 mg tablet,delayed 40 mg PO DAILY 04/16/24 12/01/24 release tiotropium bromide 18 mcg capsule 1 cap inhalation DAILY 04/16/24 12/01/24 with inhalation device (Spiriva with HandiHaler) vitamin E 268 mg (400 unit) capsule 268 mg PO DAILY 04/16/24 12/01/24 zolpidem 12.5 mg tablet,extended 12.5 mg PO DAILY 04/16/24 12/01/24 release,multiphase zonisamide 50 mg capsule 100 mg PO BEDTIME 05/29/24 12/01/24 Allergies Allergy/AdvReac Type Severity Reaction Status Date / Time No Known Drug Allergies Allergy Verified 06/24/24 07:33 Opioid HPI Opioid Management Most Recent Opioid Data: Last Pain Scale 8 06/24/24, 07:26 Review of Systems ROS Narrative A ten point review of systems is negative except as noted above. PFSH PFSH Medical History Osteoarthritis ?M19.90 - Unspecified osteoarthritis, unspecified site (ICD-10) Anxiety ?F41.9 - Anxiety disorder, unspecified (ICD-10) Hiatal hernia ?K44.9 - Diaphragmatic hernia without obstruction or gangrene (ICD-10) Sleep apnea ?G47.30 - Sleep apnea, unspecified (ICD-10) COPD (chronic obstructive pulmonary disease) ?J44.9 - Chronic obstructive pulmonary disease, unspecified (ICD-10) High cholesterol ?E78.00 - Pure hypercholesterolemia, unspecified (ICD-10) HTN (hypertension) ?I10 - Essential (primary) hypertension (ICD-10) Surgical History History of ankle surgery ?Z98.890 - Other specified postprocedural states (ICD-10) History of hand surgery ?Z98.890 - Other specified postprocedural states (ICD-10) History of knee replacement ?Z96.659 - Presence of unspecified artificial knee joint (ICD-10) Social History Little interest or pleasure in doing things: not at all Feeling down, depressed, or hopeless: not at all Exam Narrative Exam Narrative: Nurses note and vital signs reviewed and patient is not hypoxic. General: The patient appears well and in no apparent distress. Patient is resting comfortably on cart. Skin: Warm, dry, no pallor noted. There is no rash noted. Head: Normocephalic, atraumatic Eye: Normal conjunctiva, no drainage Ears, Nose, Mouth, and Throat: oral mucosa is moist. Nares patent. Cardiovascular: Regular Rate and Rhythm Respiratory: Patient is in no distress, no accessory muscle use, lungs are clear to auscultation, no wheezing, rales or rhonchi Back: No bruise rash or abrasion. She has no focal area of tenderness to palpation. Motor strength intact in her lower extremities GI: Soft and nontender Musculoskeletal: The patient has no evidence of calf tenderness, no pitting edema, symmetrical pulses noted bilaterally Neurological: A&O, normal speech Psychiatric: Cooperative Constitutional Vital Signs, click to edit/add: Last Vital Signs Temp 97.4 F L 12/01/24 08:22 Pulse 92 H 12/01/24 08:22 Resp 18 12/01/24 08:22 BP 158/91 H 12/01/24 08:22 Pulse Ox 96 12/01/24 08:22 O2 Del Method Room Air 12/01/24 08:22 Course Vital Signs Vital signs: Vital Signs Temperature 97.4 F L 12/01/24 08:22 Pulse Rate 92 H 12/01/24 08:22 Respiratory Rate 18 12/01/24 08:22 Blood Pressure 158/91 H 12/01/24 08:22 Pulse Oximetry 96 12/01/24 08:22 Oxygen Delivery Method Room Air 12/01/24 08:22 Temperature 97.4 F L 12/01/24 08:22 Pulse Rate 92 H 12/01/24 08:22 Respiratory Rate 18 12/01/24 08:22 Blood Pressure 158/91 H 12/01/24 08:22 Pulse Oximetry 96 12/01/24 08:22 Oxygen Delivery Method Room Air 12/01/24 08:22 Medical Decision Making MDM Narrative Medical decision making narrative: X-ray shows no acute findings and she is feeling improved after being given IM Toradol and Norflex. She will follow-up with her pain management physician. Treatment diagnosis and follow-up were discussed with the patient. Differential Diagnosis Differential Diagnosis: Acute exacerbation of chronic back pain, compression fracture, muscle strai Imaging Data Lumbar x-ray: Radiologist's impression: No acute fracture, no acute dislocation, chronic grade 1 anterolisthesis of L4 on L5 Discharge Plan Discharge Chief Complaint: Back Pain/Injury Clinical Impression: Low back pain Patient Disposition: Home, Self-Care Time of Disposition Decision: 11:19 Condition: Good Mode of Transportation: Private Vehicle Prescriptions / Home Meds: No Action fluticasone propionate [24 Hour Allergy Relief] 50 mcg/actuation spray,suspension 2 spray intranasal DAILY PRN (Reason: allergy symptoms) Rx Instructions: administer into each nostril donepezil [Aricept] 5 mg tablet 5 mg PO DAILY atorvastatin 40 mg tablet 40 mg PO DAILY pantoprazole 40 mg tablet,delayed release (DR/EC) 40 mg PO DAILY losartan 50 mg tablet 50 mg PO DAILY zolpidem 12.5 mg tablet,ext release multiphase 12.5 mg PO DAILY tiotropium bromide [Spiriva with HandiHaler] 18 mcg capsule, w/inhalation device 1 cap inhalation DAILY Rx Instructions: puncture 1 cap using device; one dose = 2 inhalations aspirin [Adult Aspirin Regimen] 81 mg tablet,delayed release (DR/EC) 81 mg PO DAILY calcium carbonate [Calcium 500] 500 mg calcium (1,250 mg) tablet,chewable 500 mg PO BID famotidine 40 mg tablet 40 mg PO DAILY vitamin E 268 mg (400 unit) capsule 268 mg PO DAILY zonisamide 50 mg capsule 100 mg PO BEDTIME Print Language: [place] Islander Instructions: Acute Low Back Pain (ED) Additional Instructions: Follow-up with your pain management physician Referrals: Latrell Mckeon MD [Primary Care Provider, Family Practice] - 1 week
[2024-12-01] MEDS: ORPHENADRINE 60 MG/2 ML VIAL IM (08:49)
[2024-12-01] MEDS: KETOROLAC TROMETHAMINE 60 MG/2 ML VIAL IM (08:49)
== END 2024-12-01 11:47 | disposition home or self-care (01) ==
PROVIDERS: Emergency Provider Emergency Medicine; PCP Family Medicine
DX: M54.50 Low back pain, unspecified (principal)
CPT/HCPCS: 72100; 96372; 99284; J1885; J2360

== ENCOUNTER 2024-12-12 08:31 | Outpatient (OUT) | payer MEDICARE, OTHER, SELFPAY ==
--- OUTSIDE RECORDS SUMMARY | 2024-12-12 08:52 | XMS_ITS | CCD ---
Author Organization [facility] CliniSytn Care Team Providers Care Clerical Dentist Assistant Name Role Phone FREDY, DR CHAPARRO [...] Unavailable Guero OLIVO, Latrell Primary Care Provider [phone] GUERO, LATRELL Primary Care Physician Pa WEBB Referring Unavailable NILL, Pa Vivas Attending Unavailable Pa WEBB Admitting Unavailable Dafne Spears Referring Unavaila ble Sarmini, Wilson Talal Attending Unavaila ble Sarmini, Wilson Talal Admitting Unavaila ble Sarmini, Wilson Talal Referring Unavaila ble Sarmini, Wilson Talal Attending Unavaila ble Sarmini, Wilson Talal Admitting Unavaila ble Sarmini, Wilson Talal Attending Unavaila ble Pa WEBB Attending Unavailable LATRELL JACK Referring Unavailable Yovanny OLIVO, Dafne Talal Unavailable Diomedes Fitzgerald DO Unavailable Jocelynitis , Andrius Vytautas Attending Unavailable Giedraitis , Andrius Vytautas Attending Unavailable Jocelynitis , Andrius Vytautas Attending Unavailable Giedraitis , Andrius Vytautas Attending Unavailable Saundra OLIVO, Andrius Aviytlisandra Attending Unavailable Latrell Jack MD Primary Care Provider Yovanny OLIVO, Dafne Junior Unavailable [phone] LATRELL JACK Primary Care Unavailable BEISISAXAVIER Referring Unava ilable NADERER, LATRELL A Primary Care Unavailable XAVIER BOYD Referring Unava ilable KATARZYNA SNYDER Attending Unavailable BARI CASTILLO Referring Unavailable NADERER, LATRELL A Primary Care Unavailable NADERER, LATRELL A Primary Care Unavailable BEXAVIER MANUEL Referring Unava ilable SARMINI, DAFNE TALAL Referring Unavaila ble XAVIER BOYD Attending Unava ilable YARIELR, LATRELL A Primary Care Unavailable JAMIL DELACRUZ Referring Unavailable KATARZYNA SNYDER Referring Unavailable NADERER, LATRELL A Primary Care Unavailable BEXAVIER MANUEL Attending Unava ilable XAVIER BOYD Admitting Unava ilable Latrell Jack MD Unavailable LATRELL JACK Attending Unavailable SANDRA ARCOS Attending Unavailable GUERO, LATRELL Attending Unavailable DIOMEDES FITZGERALD Attending Unavailable LATRELL JACK Referring Unavailable DIOMEDES FITZGERALD Referring Unavailable LATRELL JACK Attending Unavailable MAO MORROW Attending Unavailable LATRELL JACK Attending Unavailable SANDRA ARCOS Attending Unavailable Allergies Allergy Classification Reported Allergen(s) Allergy Type Date of Onset Reaction(s) Facility (1 source) Amino Acids Drug Allergy [facility] Medications Current Medications Medication Drug Class(es) Dates Sig (Normalized) Sig (Original) acetaminophen 500 mg oral tablet (10 sources) Start: 07-26-2024 take 1 tablet by mouth every six hours as needed for pain and pain acetaminophen (Tylenol) 500 MG tablet Take 500 mg by mouth every 6 (six) hours if needed for mild pain or moderate pain Take 2 tabs every 6 hours as needed for pain. 07/26/2024 Active acetaminophen 325 mg / HYDROcodone bitartrate 5 mg oral tablet (2 sources) Opioid Agonist Start: 12-04-2024 End: 12-09-2024 take 1 tablet by mouth four times daily as needed for pain HYDROcodone-acetami nophen ([place]) 5-325 MG tablet Indications: Degenerative lumbar spinal stenosis Take 1 tablet by mouth 4 (four) times a day as needed for severe pain for up to 5 days 20 tablet 12/04/2024 12/09/2024 Active aspirin 81 mg oral tablet (20 [...] 02/09/2024 Active baclofen 10 mg oral tablet (15 sources) gamma-Aminobutyr ic Acid-ergic Agonist take 5 [...] Active docusate sodium 100 mg oral capsule (10 sources) Start: 07-26-2024 Docusate Sodiu m (DSS) 100 MG capsule Take 100 mg by mouth every 12 (twelve) hours if needed 07/26/2024 Active Start: 07-26-2024 take 1 capsule by mo [facility] every twelve hours as needed docusate sodium (COLACE) 100 mg capsule Take 1 capsule by mouth two times a day as needed for constipation. 07/26/2024 Active donepezil hydrochloride 10 mg oral tablet (20 sources) Start: 05-30-2024 End: 05-30-2025 take 1 tablet by mouth once daily at bedtime donepezil (Aricept) 10 MG tablet Indications: Memory loss TAKE 1 TABLET BY MOUTH EVERYDAY AT BEDTIME 90 tablet 1 10/31/2024 Active Start: 02-23-2024 End: 08-27-2024 take 1 [...] Active Start: 09-06-2023 Flonase 0.05 m g/inh [place] 2 spray(s), Nasal, Daily, Refill(s) 0, Dry [...] day at the same time 0 Active methocarbamol 750 mg oral tablet (4 sources) Muscle Relaxant Start: 12-04-2024 take 1 tablet by mouth four times daily as needed for muscle spasms methocarbamol (Robaxin) 750 MG tablet Indications: Degenerative lumbar spinal stenosis Take 1 tablet (750 mg) by mouth 4 (four) times a day as needed for muscle spasms 60 tablet 2 12/04/2024 Active Start: 12-01-2024 End: 12-04-2024 methocarbamol (Robaxin) 500 MG tablet 12/01/2024 12/04/2024 Discontinued (Reorder) Multiple Vitamin (multivitamin) capsule (18 sources) take 1 capsule by mouth once daily Multiple Vitamin (multivitamin) capsule Take 1 capsule by mouth Daily Active ondansetron 4 mg oral tablet (1 source) Serotonin-3 Receptor Antagonist Start: 07-26-19 End: 08-02-19 take 1 tablet by mouth every eight hours as needed ondansetron (Zofran) 4 MG tablet Take 4 mg by mouth every 8 (eight) hours if needed 07/26/2024 08/02/2024 Active oxyCODONE hydrochloride 5 mg oral tablet (4 sources) Opioid Agonist Start: 07-26-19 End: 08-27-19 take 1 tablet by mouth every six hours as needed for pain and pain oxyCODONE (Roxicodone) 5 MG immediate release tablet Take 5 mg by mouth every 6 (six) hours if needed for moderate pain or severe pain 07/26/2024 08/27/2024 Discontinued pantoprazole 40 mg delayed release oral tablet (20 sources) Proton Pump Inhibitor Start: 03-03-20 End: 06-13-20 take 1 tablet by mouth in the morning pantoprazole (ProtoNix) 40 MG EC tablet Indications: Hiatal hernia with gastroesophageal reflux disease without esophagitis Take 1 tablet (40 mg) by mouth in the morning and 1 tablet (40 mg) before bedtime. 180 tablet 3 06/13/2024 Active predniSONE 50 mg oral tablet (4 sources) Start: 12-05-19 End: 12-11-19 take 1 tablet by mouth once daily predniSONE (Deltasone) 50 MG tablet Indications: Degenerative lumbar spinal stenosis Take 1 tablet (50 mg) by mouth Daily for 6 days 6 tablet 12/04/2024 12/10/2024 Active Start: 05-15-2024 End: 05-21-2024 take 1 tablet by mouth once daily predniSONE (Deltasone) 50 MG tablet Indications: Chronic obstructive pulmonary disease, unspecified COPD type (CMS/HCC) Take 1 tablet (50 mg) by mouth Daily for 6 days 6 tablet 05/15/2024 05/21/2024 Active tiotropium 0.018 mg inhalation powder (20 sources) Anticholinergic Start: 10-29-2024 take 1 capsule by inhalation in the morning Spiriva HandiHaler 18 MCG inhalation capsule Indications: Chronic obstructive pulmonary disease, unspecified COPD type (CMS/HCC) PLACE 1 CAPSULE (18 MCG) INTO INHALER AND INHALE IN THE MORNING 30 capsule 11 10/29/2024 Active Start: 10-09-2023 End: 10-29-2024 take 1 capsule by inhalation in the morning tiotropium (Spiriva HandiHaler) 18 MCG inhalation capsule Indications: Chronic obstructive pulmonary disease, unspecified COPD type (CMS/HCC) Place 1 capsule (18 mcg) into inhaler and inhale in the morning. 30 capsule 11 10/09/2023 10/29/2024 Discontinued Start: 09-06-2023 take 1 capsule by in [...] 02/26/24 Status: Ordered take 1 capsule by [facility] once daily alpha tocopherol (Vitamin E) 400 units capsule Take 1 capsule by mouth 1 (one) time each day at the same time Active Vitamin E, dl, a cetate, (VITAMIN E) 400 unit capsule Take 1 capsule by mouth. Active zolpidem tartrate 10 mg oral tablet (20 sources) gamma-Aminobutyric Acid-ergic Agonist Start: 07-31-2024 End: 10-29-2024 take 1 tablet by mouth at bedtime as needed for sleep zolpidem (Ambien) 10 MG tablet Indications: Primary insomnia TAKE 1 TABLET BY MOUTH AT BEDTIME NEEDED FOR SLEEP 90 tablet 10/29/2024 Active Start: 03-03-2021 End: 07-31-2024 take 1 tablet by mouth at bedtime zolpidem CR (Ambien CR) 12.5 MG ER tablet Indications: Primary insomnia Take 1 tablet (12.5 mg) by mouth at bedtime 90 tablet 2 07/30/2024 07/31/2024 Discontinued zonisamide 50 mg oral capsule (7 sources) Anti-epileptic Agent Start: 08-07-2024 take 2 [...] (BMI) of 38.0 to 38.9 in adult (CMS/HCC)] Onset: 4 Resolved: 5 05-15-2024 Chronic Other [...] Spondylosis; intervertebral disc disorders; other back problems (13 sources) Lumbago with sciatica, left side; Translations: [...] reflux disease with hiatal hernia] Onset: 09-16-2021 Resolved: 12-04-2024 08-11-2023 Episodic Complication of device; implant or [...] covid-19] Onset: 11-04-2021 07-23-2024 Episodic Mood disorders (7 sources) Mood disorders Onset: 08-27-2024 08-27-2024 Other aftercare (1 source) Other terminal manager (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 therapy; Translations: [OTH PROTECTIVE CLOTHING ISSUER CURRENT DRUG THERAPY] Onset: 02-23-2022 Episodic Other aftercare (1 source) alf (current) use of aspirin; Translations: [PROTECTIVE CLOTHING ISSUER CURRENT USE OF ASPIRIN] Onset: 02-23-2022 Episodic Other aftercare (8 sources) Patient encounter status; Translations: [Other terminal manager (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 therapy] Onset: 08-11-2023 08-11-2023 Episodic Other aftercare (20 sources) Long-term current use of drug therapy; Translations: [Other terminal manager (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 therapy] Onset: 08-11-2023 08-11-2023 Episodic [...] WITH AUTO DIFFon BASOPHILS ABSOLUTE AUTO 0 [facility] Basophils/100 WBC (Bld) 0.4 % 0.2 - 2.0 % [facility] Eosinophils/100 WBC (Bld) 3.5 % 0.9 - 7.0 % [facility] Erythrocyte distribution width (RBC) [Ratio] 12.8 % 11.0 - 15.0 % [facility] Hematocrit (Bld) [Volume fraction] 39.2 % 36.0 - 48.0 % [facility] Hemoglobin (Bld) [Mass/Vol] 13.1 g/dL 12.0 - 16.0 g/dL [facility] IMMATURE GRANULOCYTES ABS AUTO 0.09 High [facility] Immature granulocytes/100 WBC (Bld) 1.3 % High 0.0 - 0.5 % [facility] Interpretation and review of laboratory results Abnormal [facility] LYMPHOCYTES ABSOLUTE AUTO 1.2 [facility] Lymphocytes/100 WBC (Bld) 18.3 % Low 20.5 - 60.0 % [facility] MCH (RBC) [Entitic mass] 31.9 pg 26.7 - 34.0 pg [facility] MCHC (RBC) [Mass/Vol] 33.4 g/dL 29.9 - 35.2 g/dL [facility] MCV (RBC) [Entitic vol] 95.4 fL 81.0 - 99.0 fL [facility] MONOCYTES ABSOLUTE AUTO 0.4 [facility] Monocytes/100 WBC (Bld) 6.5 % 1.7 - 12.0 % [facility] NEUTROPHILS ABSOLUTE AUTO 4.7 [facility] Neutrophils/100 WBC (Bld) 70 % 43.0 - 75.0 % [facility] Platelet mean volume (Bld) [Entitic vol] 10.6 fL 9.5 - 13.5 fL [facility] TBH EO # 0.2 [facility] TB PLT 194 [facility] TB RBC 4.11 Low [facility] TB WBC 6.8 [facility] CNOVon 08-07-2024 CNOV Office Visit (GENN ) SHEY BOSS ([id number]) 1950 F Date Time Provider Department 08/07/24 [...] Katarzyna Snyder APRN.CNP 08/07/2024 3:37 PM Signed [facility] Clinic Date: August [...] completed prior to appointment Katarzyna Snyder, MSN, [employer] August 07, 2024 Referring Provider: BARI CASTILLO [[id number]] Allergies As of Date: 08/07/2024 (No Known Allergies) Date Reviewed: 08/07/2024 Reviewed by: Olga Lidia Blake MA - Fully Assessed Reason for Visit: Post Op [174] Primary Visit Diagnosis:Postoperative visit [Z (more content not included)... Normal [facility] Basic metabolic 2000 panelon 07-26-2024 Anion gap [Moles/Vol] 12 mmol/L Normal 8-15 [facility] Comment on above: Order Comment: Speci men Type: BLOOD SPECIMEN Ordering Facility: [facility] Address: [address] [place] [address] Performed By: #### 2 4321-2, HSTNT, , 2776-07 #### [facility] CLIA [id number] [address] [place] [address] [place] Calcium [Mass/Vol] 9.0 mg/dL Normal 8.5-10.2 [facility] Comment on above: Order Comment: Speci men Type: BLOOD SPECIMEN Ordering Facility: [facility] Address: [address] [place] [address] Performed By: #### 2 4321-2, HSTNT, , 2776-07 #### [facility] CLIA [id number] [address] [place] [address] [place] Chloride [Moles/Vol] 107 mmol/L Normal 98-107 [facility] Comment on above: Order Comment: Speci men Type: BLOOD SPECIMEN Ordering Facility: [facility] Address: [address] [place] [address] Performed By: #### 2 4321-2, HSTNT, , 7- #### [facility] CLIA [id number] [address] [place] [address] [place] CO2 [Moles/Vol] 24 mmol/L Normal 22-30 [facility] Comment on above: Order Comment: Speci men Type: BLOOD SPECIMEN Ordering Facility: [facility] Address: [address] [place] [address] Performed By: #### 2 4321-2, HSTNT, , 2776- #### [facility] CLIA [id number] [address] [place] [address] [place] Creatinine [Mass/Vol] 0.92 mg/dL Normal 0.58-0.96 [facility] Comment on above: Order Comment: Speci men Type: BLOOD SPECIMEN Ordering Facility: [facility] Address: [address] [place] [address] Performed By: #### 2 4321-2, HSTNT, , 2776-07 #### [facility] CLIA [id number] [address] [place] [address] [place] Creatinine and Glomerular filtration rate.predicted panel (S/P/Bld) 66 mL/min/1.73m??? Normal >=60 [facility] Comment on above: Order Comment: Speci men Type: BLOOD SPECIMEN Ordering Facility: [facility] Address: [address] [place] [address] Result Comment: Ira mated Glomerular Filtration Rate [...] By: #### 2 4321-2, HSTNT, 2776-07 #### [facility] CLIA [id number] [address] [place] [address] [place] Glucose [Mass/Vol] 112 mg/dL High 74-99 [facility] Comment on above: Order Comment: Fabiola bliss Type: BLOOD SPECIMEN Ordering Facility: [facility] Address: [address] [place] [address] Result Comment: The [place] Diabetes [employer] (ADA) provides guidance for cutoff [...] Standards of Medical Care in Diabetes 2016, [place] [employer]. Diabetes Care. 2016.39(Suppl 1). Performed By: #### 2 4321-2, HSTNT, 2776-07 #### [facility] CLIA [id number] [address] [place] [address] [place] Potassium [Moles/Vol] 3.4 mmol/L Low 3.7-5.1 [facility] Comment on above: Order Comment: Fabiola bliss Type: BLOOD SPECIMEN Ordering Facility: [facility] Address: [address] [place] [address] Performed By: #### 2 4321-2, HSTNT, 2776-07 #### [facility] CLIA [id number] [address] [place] [address] [place] Sodium [Moles/Vol] 143 mmol/L Normal 136-144 [facility] Comment on above: Order Comment: Speci men Type: BLOOD SPECIMEN Ordering Facility: [facility] Address: [address] [place] [address] Performed By: #### 2 4321-2, HSTNT, , 2776-07 #### [facility] CLIA [id number] [address] [place] [address] [place] Urea nitrogen [Mass/Vol] 10 mg/dL Normal 7-21 [facility] Comment on above: Order Comment: Speci men Type: BLOOD SPECIMEN Ordering Facility: [facility] Address: [address] [place] [address] Performed By: #### 2 4321-2, HSTNT, , 2776-07 #### [facility] CLIA [id number] [address] [place] [address] OF [place] CASE MANAGEMon 07-26-2024 CASE MANAGEM HNO ID: [id number] Author: KRISTIE DIAZ, ? Service: ? Author Type: ? Type: Care Mgt Progress Note Filed: 07/26/2024 11:58 Note Text: CARE MANAGEMENT PROGRESS NOTE SERVICE DATE: 07/26/2024 SERVICE TIME: 11:57 AM LOS: 2 days IMM Follow Up Copy Given: Yes Copy given to:: Patient Method: In Person SIGNATURE: Kristie Diaz CMA PATIENT NAME: Shey Boss DATE: July 26, 2024 TIME: 11:57 AM Normal [facility] CBC W Auto Differential pane l (Bld)on 07-26-2024 Basophils (Bld) [#/Vol] 10*3/uL Normal <0.11 [facility] Comment on above: Order Comment: Speci men Type: BLOOD SPECIMEN Ordering Facility: [facility] Address: [address] [place] [address] Performed By: #### 2 4321-2, HSTNT, , 2776-07 #### [facility] CLIA [id number] [address] [place] [address] [place] Basophils/100 WBC (Bld) 0.3 % Normal [facility] Comment on above: Order Comment: Speci men Type: BLOOD SPECIMEN Ordering Facility: [facility] Address: [address] [place] [address] Performed By: #### 2 4321-2, HSTNT, , 2776-07 #### [facility] CLIA [id number] [address] [place] [address] [place] Differential cell count method Nom (Bld) Auto Normal [facility] Comment on above: Order Comment: Speci men Type: BLOOD SPECIMEN Ordering Facility: [facility] Address: [address] [place] [address] Performed By: #### 2 4321-2, HSTNT, , 2776-07 #### [facility] CLIA [id number] [address] [place] [address] [place] Eosinophils (Bld) [#/Vol] 0.08 10*3/uL Normal <0.46 [facility] Comment on above: Order Comment: Speci men Type: BLOOD SPECIMEN Ordering Facility: [facility] Address: [address] [place] [address] Performed By: #### 2 4321-2, HSTNT, , 2776-07 #### [facility] CLIA [id number] [address] [place] [address] [place] Eosinophils/100 WBC (Bld) 1.3 % Normal [facility] Comment on above: Order Comment: Speci men Type: BLOOD SPECIMEN Ordering Facility: [facility] Address: [address] [place] [address] Performed By: #### 2 4321-2, HSTNT, , 2776-07 #### [facility] CLIA [id number] [address] [place] [address] [place] Erythrocyte distribution width (RBC) [Ratio] 13.9 % Normal 11.5-15.0 [facility] Comment on above: Order Comment: Speci men Type: BLOOD SPECIMEN Ordering Facility: [facility] Address: [address] [place] [address] Performed By: #### 2 4321-2, HSTNT, , 2776- #### [facility] CLIA [id number] [address] [place] [address] [place] Hematocrit (Bld) [Volume fraction] 35.1 % Low 36.0-46.0 [facility] Comment on above: Order Comment: Speci men Type: BLOOD SPECIMEN Ordering Facility: [facility] Address: [address] [place] [address] Performed By: #### 2 4321-2, HSTNT, , 2776-07 #### [facility] CLIA [id number] [address] [place] [address] [place] Hemoglobin (Bld) [Mass/Vol] 12.2 g/dL Normal 11.5-15.5 [facility] Comment on above: Order Comment: Speci men Type: BLOOD SPECIMEN Ordering Facility: [facility] Address: [address] [place] [address] Performed By: #### 2 4321-2, HSTNT, , 2776-07 #### [facility] CLIA [id number] [address] [place] [address] [place] Immature granulocytes (Bld) [#/Vol] 0.04 10*3/uL Normal <0.10 [facility] Comment on above: Order Comment: Speci men Type: BLOOD SPECIMEN Ordering Facility: [facility] Address: [address] [place] [address] Performed By: #### 2 4321-2, HSTNT, , 2776-07 #### [facility] CLIA [id number] [address] [place] [address] [place] Immature granulocytes/100 WBC (Bld) 0.7 % Normal [facility] Comment on above: Order Comment: Speci men Type: BLOOD SPECIMEN Ordering Facility: [facility] Address: [address] [place] [address] Performed By: #### 2 4321-2, HSTNT, , 2776- #### [facility] CLIA [id number] [address] [place] [address] [place] Lymphocytes (Bld) [#/Vol] 1.90 10*3/uL Normal 1.00-4.00 [facility] Comment on above: Order Comment: Speci men Type: BLOOD SPECIMEN Ordering Facility: [facility] Address: [address] [place] [address] Performed By: #### 2 4321-2, HSTNT, , 2776-07 #### [facility] CLIA [id number] [address] [place] [address] [place] Lymphocytes/100 WBC (Bld) 30.9 % Normal [facility] Comment on above: Order Comment: Speci men Type: BLOOD SPECIMEN Ordering Facility: [facility] Address: [address] [place] [address] Performed By: #### 2 4321-2, HSTNT, , 2776-07 #### [facility] CLIA [id number] [address] [place] [address] [place] MCH (RBC) [Entitic mass] 32.9 pg Normal 26.0-34.0 [facility] Comment on above: Order Comment: Speci men Type: BLOOD SPECIMEN Ordering Facility: [facility] Address: [address] [place] [address] Performed By: #### 2 4321-2, HSTNT, , 2776- #### [facility] CLIA [id number] [address] [place] [address] [place] MCHC (RBC) [Mass/Vol] 34.8 g/dL Normal 30.5-36.0 [facility] Comment on above: Order Comment: Speci men Type: BLOOD SPECIMEN Ordering Facility: [facility] Address: [address] [place] [address] Performed By: #### 2 4321-2, HSTNT, , 2776-07 #### [facility] CLIA [id number] [address] [place] [address] [place] MCV (RBC) [Entitic vol] 94.6 fL Normal 80.0-100.0 [facility] Comment on above: Order Comment: Speci men Type: BLOOD SPECIMEN Ordering Facility: [facility] Address: [address] [place] [address] Performed By: #### 2 4321-2, HSTNT, , 2776-07 #### [facility] CLIA [id number] [address] [place] [address] [place] Monocytes (Bld) [#/Vol] 0.46 10*3/uL Normal <0.87 [facility] Comment on above: Order Comment: Speci men Type: BLOOD SPECIMEN Ordering Facility: [facility] Address: [address] [place] [address] Performed By: #### 2 4321-2, HSTNT, , 2776-07 #### [facility] CLIA [id number] [address] [place] [address] [place] Monocytes/100 WBC (Bld) 7.5 % Normal [facility] Comment on above: Order Comment: Speci men Type: BLOOD SPECIMEN Ordering Facility: [facility] Address: [address] [place] [address] Performed By: #### 2 4321-2, HSTNT, , 2776-07 #### [facility] CLIA [id number] [address] [place], [place] [address] [place] Neutrophils (Bld) [#/Vol] 3.64 10*3/uL Normal 1.45-7.50 [facility] Comment on above: Order Comment: Speci men Type: BLOOD SPECIMEN Ordering Facility: [facility] Address: [address] [place] [address] Performed By: #### 2 4321-2, HSTNT, , 2776-07 #### [facility] CLIA [id number] [address] [place] [address] [place] Neutrophils/100 WBC (Bld) 59.3 % Normal [facility] Comment on above: Order Comment: Speci men Type: BLOOD SPECIMEN Ordering Facility: [facility] Address: [address] [place] [address] Performed By: #### 2 4321-2, HSTNT, , 2776-07 #### [facility] CLIA [id number] [address] [place] [address] [place] JENNIFER Nucleated RBC (Bld) [#/Vol] 10*3/uL Normal <0.01 [facility] Comment on above: Order Comment: Speci men Type: BLOOD SPECIMEN Ordering Facility: [facility] Address: [address] [place] [address] Performed By: #### 2 4321-2, HSTNT, , 2776-07 #### [facility] CLIA [id number] [address] [place] [address] [place] Nucleated RBC/100 WBC (Bld) [Ratio] 0.0 /100 WBC Normal [facility] Comment on above: Order Comment: Speci men Type: BLOOD SPECIMEN Ordering Facility: [facility] Address: [address] [place] [address] Performed By: #### 2 4321-2, HSTNT, , 2776-07 #### [facility] CLIA [id number] [address] [place], [place] [id number] [place] Platelet mean volume (Bld) [Entitic vol] 9.9 fL Normal 9.0-12.7 [facility] Comment on above: Order Comment: Speci men Type: BLOOD SPECIMEN Ordering Facility: [facility] Address: [address] [place] [address] Performed By: #### 2 4321-2, HSTNT, , 2776- #### [facility] CLIA [id number] [address] [place] [address] [place] Platelets (Bld) [#/Vol] 143 10*3/uL Low 150-400 [facility] Comment on above: Order Comment: Speci men Type: BLOOD SPECIMEN Ordering Facility: [facility] Address: [address] [place] [address] Performed By: #### 2 4321-2, HSTNT, , 2776-07 #### [facility] CLIA [id number] [address] [place] [address] [place] RBC (Bld) [#/Vol] 3.71 10*6/uL Low 3.90-5.20 [facility] Comment on above: Order Comment: Speci men Type: BLOOD SPECIMEN Ordering Facility: [facility] Address: [address] [place] [address] Performed By: #### 2 4321-2, HSTNT, , 2776-07 #### [facility] CLIA [id number] [address] [place] [address] [place] WBC (Bld) [#/Vol] 6.14 10*3/uL Normal 3.70-11.00 [facility] Comment on above: Order Comment: Speci men Type: BLOOD SPECIMEN Ordering Facility: [facility] Address: [address] [place] [address] Performed By: #### 2 4321-2, HSTNT, , 2776-07 #### [facility] CLIA [id number] [address] [place] [address] [place] CNCOon 07-26-2024 CNCO Letter Text Normal [facility] CNDSon 07-26-2024 CNDS HNO ID: [id number] Author: KASSY VERDE APRN.GAS METER PROVER Service: General Surgery Author Type: Nurse Practitioner [...] for surgery Anesthesia administration [facility]: Sehy Boss is a 73-year-old female with a PMHx of COPD, former smoker, EDWIN, HTN, GERD, dyslipidemia, TIA, memory loss, chronic back pain and insomnia who presented on 07/24/2024 for a paraesophageal hernia repair with Dr. Boyd. See operative report for details. She recovered in the PACU and transferred to the [facility] for the remainder of her postoperative [...] Commonly know (more content not included)... Normal [facility] Magnesium SerPl-mCncon 07-26 Magnesium [Mass/Vol] 2.0 mg/dL Normal 1.7-2.3 [facility] Comment on above: Order Comment: Speci men Type: BLOOD SPECIMEN Ordering Facility: [facility] Address: [address] [place] [address] Performed By: #### 2 4321-2, HSTNT, 23695-9, 2777-1 #### [facility] CLIA [id number] [address] [place] [address] [place] [address] [place] PT EDon 07-26-2024 PT ED HNO ID: [id number] Author: NOREEN RODNEY DTR Service: Nutrition Therapy Author Type: Balance Assembler Type: Patient Education Filed: 07/26/2024 14:04 Note [...] 26, 2024 TIME: 2:04 PM PAGER: Normal [facility] Phosphate SerPl-mCncon 07-26 Phosphate [Mass/Vol] 2.5 mg/dL Low 2.7-4.8 [facility] Comment on above: Order Comment: Speci men Type: BLOOD SPECIMEN Ordering Facility: [facility] Address: [address] [place] [address] Performed By: #### 2 4321-2, HSTNT, 79597-2, 277- #### [facility] CLIA [id number] [address] [place], [place] [address] [address] [address] [place] HIGH SENSITIVITY TROPONIN To n 07-25-2024 Troponin T.cardiac High sensitivity method [Mass/Vol] 12 ng/L High <12 [facility] Comment on above: Order Comment: Speci men Type: BLOOD SPECIMEN Ordering Facility: [facility] Address: [address] [place] [address] Performed By: #### 2 4321-2, HSTNT, 52317-8, 277- #### [facility] CLIA [id number] [address] [place], [place] [address] [address] [address] [place] XR UPPER GI [...] (min:sec). Air kerma: 38.9 mGy. RESULT: Preliminary power press operator: Gastric distention. No dilated bowel in the [...] ESOPHAGEAL TRANSIT, LIKELY RELATED TO POSTOPERATIVE EDEMA. Plate Driller: PSCB Transcribe Date/Time: Jul 25 2024 10:06A Dictated by : NAHID PACHECO MD This examination was interpreted and the report reviewed and electronically signed by: MARTHA CATALAN MD on Jul 25 2024 10:13AM EST [id number] Normal [facility] ANES POSTPROC EVALon 025 ANES POSTPROC EVAL HNO ID: [id number] Author: FLOR SNOW MD Service: ? Author Type: Physician Type: Anesthesia Postprocedure Evaluation Filed: 07/24/2024 15:38 Note Text: POST ANESTHESIA EVALUATION NOTE : 1950 Procedure Summary Date: 07/24/24 Room / Location: [address] [facility] Anesthesia Start: 1055 Anesthesia Stop: [...] July 24, 2024 TIME: 3:38 PM CSN: [id number] Normal [facility] ANES PRE-OPon 07-24-2024 ANES PRE-OP HNO ID: [id number] Author: FLOR SNOW MD Service: ? Author [...] and consent discussed: yes. Patient / Responsible Alliance Party agrees to proceed: yes Patient / Surrogate agrees to blood products: Yes Significant changes in the patient condition since the History and Physical, not otherwise documented in primary service progress note: no. Potential Anesthesia issues that may suggest increased risk of complications or contraindication to planned procedure: potential difficult intubation and potential difficult IV access. Vitals Value Taken Time BP 152/67 07/24/24 0901 Pulse 71 07/24/24 09 Resp 18 07/24/24 09 Temp 36.1 ?C (97 ?F) 07/24/24 09 SpO2 96 % 07/24/24 0901 Facility-Administered Medications as of 07/24/2024 Medication Dose [...] July 24, 2024 TIME: 9:15 AM CSN: [id number] [facility] BRIEF OP NOTon 07-24-2024 BRIEF OP NOT HNO ID: [id number] Author: YAN MOSER, ? Service: General Surgery Author Type: Physician Type: Brief Op Note Filed: 07/24/2024 14:16 Note Text: BRIEF OPERATIVE / PROCEDURE NOTE LOG ID: [id number] SURGERY/PROCEDURE DATE: 07/24/2024 INCISION/PROCEDURE START TIME: 11:37 AM INCISION CLOSE/PROCEDURE END TIME: 2:12 PM SURGEON(S)/PROCEDURALIS T(S) AND SALES SERVICE SUPERVISOR(S): Surgeons and Role: * Xavier Boyd MD [...] 24, 2024 TIME: 2:15 PM PAGER/CONTACT #: [phone] Normal [facility] Basic metabolic 2000 panelon 07-24-2024 Anion gap [Moles/Vol] 15 mmol/L Normal 8-15 [facility] Comment on above: Order Comment: Speci men Type: BLOOD SPECIMEN Ordering Facility: [facility] Address: [address] [place] [address] Performed By: #### 2 4321-2, HSTNT, , 2776-07 #### [facility] CLIA [id number] [address] [place] [address] [place] Calcium [Mass/Vol] 9.3 mg/dL Normal 8.5-10.2 [facility] Comment on above: Order Comment: Speci men Type: BLOOD SPECIMEN Ordering Facility: [facility] Address: [address] [place] [address] Performed By: #### 2 4321-2, HSTNT, , 2776-07 #### [facility] CLIA [id number] [address] [place] [address] [place] Chloride [Moles/Vol] 105 mmol/L Normal 98-107 [facility] Comment on above: Order Comment: Speci men Type: BLOOD SPECIMEN Ordering Facility: [facility] Address: [address] [place] [address] Performed By: #### 2 4321-2, HSTNT, , 2776-07 #### [facility] CLIA [id number] [address] [place] [address] [place] CO2 [Moles/Vol] 21 mmol/L Low 22-30 [facility] Comment on above: Order Comment: Fabiola bliss Type: BLOOD SPECIMEN Ordering Facility: [facility] Address: [address] [place] [address] Performed By: #### 2 4321-2, HSTNT, , 2776-07 #### [facility] CLIA [id number] [address] [place] [address] [place] Creatinine [Mass/Vol] 0.83 mg/dL Normal 0.58-0.96 [facility] Comment on above: Order Comment: Fabiola bliss Type: BLOOD SPECIMEN Ordering Facility: [facility] Address: [address] [place] [address] Performed By: #### 2 4321-2, HSTNT, , 2776-07 #### [facility] CLIA [id number] [address] [place] [address] [place] Creatinine and Glomerular filtration rate.predicted panel (S/P/Bld) 75 mL/min/1.73m??? Normal >=60 [facility] Comment on above: Order Comment: Fabiola bliss Type: BLOOD SPECIMEN Ordering Facility: [facility] Address: [address] [place] [address] Result Comment: Ira mated Glomerular Filtration Rate [...] #### 2 4321-2, HSTNT, , 2776-07 #### [facility] CLIA [id number] [address] [place] [address] [place] Glucose [Mass/Vol] 171 mg/dL High 74-99 [facility] Comment on above: Order Comment: Fabiola bliss Type: BLOOD SPECIMEN Ordering Facility: [facility] Address: [address] [place] [address] Result Comment: The [place] Diabetes [employer] (ADA) provides guidance for cutoff [...] Standards of Medical Care in Diabetes 2016, [place] [employer]. Diabetes Care. 2016.39(Suppl 1). Performed By: #### 2 4321-2, HSTNT, , 2776-07 #### [facility] CLIA [id number] [address] [place] [address] [place] Potassium [Moles/Vol] 4.0 mmol/L Normal 3.7-5.1 [facility] Comment on above: Order Comment: Fabiola bliss Type: BLOOD SPECIMEN Ordering Facility: [facility] Address: [address] [place] [address] Performed By: #### 2 4321-2, HSTNT, , 2776-07 #### [facility] CLIA [id number] [address] [place] [address] [place] Sodium [Moles/Vol] 141 mmol/L Normal 136-144 [facility] Comment on above: Order Comment: Fabiola bliss Type: BLOOD SPECIMEN Ordering Facility: [facility] Address: [address] [place] [address] Performed By: #### 2 4321-2, HSTNT, , 2776-07 #### [facility] CLIA [id number] [address] [place] [address] [place] Urea nitrogen [Mass/Vol] 10 mg/dL Normal 7-21 [facility] Comment on above: Order Comment: Speci men Type: BLOOD SPECIMEN Ordering Facility: [facility] Address: [address] [place] [address] Performed By: #### 2 4321-2, HSTNT, 04343-3, 2777-1 #### [facility] CLIA [id number] [address] [place] [address] [place] CBC W Auto Differential pane l (Bld)on 07-24-2024 Basophils (Bld) [#/Vol] 10*3/uL Normal <0.11 [facility] Comment on above: Order Comment: Speci men Type: BLOOD SPECIMEN Ordering Facility: [facility] Address: [address] [place] [address] Performed By: #### 5 7021-8 #### [facility] CLIA [id number] [address] [place] [address] [place] Basophils/100 WBC (Bld) 0.3 % Normal [facility] Comment on above: Order Comment: Speci men Type: BLOOD SPECIMEN Ordering Facility: [facility] Address: [address] [place] [address] Performed By: #### 5 7021-8 #### [facility] CLIA [id number] [address] [place] [address] [place] Differential cell count method Nom (Bld) Auto Normal [facility] Comment on above: Order Comment: Speci men Type: BLOOD SPECIMEN Ordering Facility: [facility] Address: [address] [place] [address] Performed By: #### 5 7021-8 #### [facility] CLIA [id number] [address] [place] [address] [place] Eosinophils (Bld) [#/Vol] 10*3/uL Normal <0.46 [facility] Comment on above: Order Comment: Speci men Type: BLOOD SPECIMEN Ordering Facility: [facility] Address: [address] [place] [address] Performed By: #### 5 7021-8 #### [facility] CLIA [id number] [address] [place] [address] [place] Eosinophils/100 WBC (Bld) 0.0 % Normal [facility] Comment on above: Order Comment: Speci men Type: BLOOD SPECIMEN Ordering Facility: [facility] Address: [address] [place] [address] Performed By: #### 5 7021-8 #### [facility] CLIA [id number] [address] [place] [address] [place] Erythrocyte distribution width (RBC) [Ratio] 13.9 % Normal 11.5-15.0 [facility] Comment on above: Order Comment: Speci men Type: BLOOD SPECIMEN Ordering Facility: [facility] Address: [address] [place] [address] Performed By: #### 5 7021-8 #### [facility] CLIA [id number] [address] [place] [address] [place] Hematocrit (Bld) [Volume fraction] 38.8 % Normal 36.0-46.0 [facility] Comment on above: Order Comment: Speci men Type: BLOOD SPECIMEN Ordering Facility: [facility] Address: [address] [place] [address] Performed By: #### 5 7021-8 #### [facility] CLIA [id number] [address] [place] [address] [place] Hemoglobin (Bld) [Mass/Vol] 13.4 g/dL Normal 11.5-15.5 [facility] Comment on above: Order Comment: Speci men Type: BLOOD SPECIMEN Ordering Facility: [facility] Address: [address] [place] [address] Performed By: #### 5 7021-8 #### [facility] CLIA [id number] [address] [place] [address] [place] Immature granulocytes (Bld) [#/Vol] 10*3/uL Normal <0.10 [facility] Comment on above: Order Comment: Speci men Type: BLOOD SPECIMEN Ordering Facility: [facility] Address: [address] [place] [address] Performed By: #### 5 7021-8 #### [facility] CLIA [id number] [address] [place] [address] [place] Immature granulocytes/100 WBC (Bld) 0.3 % Normal [facility] Comment on above: Order Comment: Speci men Type: BLOOD SPECIMEN Ordering Facility: [facility] Address: [address] [place] [address] Performed By: #### 5 7021-8 #### [facility] CLIA [id number] [address] [place] [address] [place] Lymphocytes (Bld) [#/Vol] 0.48 10*3/uL Low 1.00-4.00 [facility] Comment on above: Order Comment: Speci men Type: BLOOD SPECIMEN Ordering Facility: [facility] Address: [address] [place] [address] Performed By: #### 5 7021-8 #### [facility] CLIA [id number] [address] [place] [address] [place] Lymphocytes/100 WBC (Bld) 6.7 % Normal [facility] Comment on above: Order Comment: Speci men Type: BLOOD SPECIMEN Ordering Facility: [facility] Address: [address] [place] [address] Performed By: #### 5 7021-8 #### [facility] CLIA [id number] [address] [place] [address] [place] MCH (RBC) [Entitic mass] 32.5 pg Normal 26.0-34.0 [facility] Comment on above: Order Comment: Speci men Type: BLOOD SPECIMEN Ordering Facility: [facility] Address: [address] [place] [address] Performed By: #### 5 7021-8 #### [facility] CLIA [id number] [address] [place] [address] [place] MCHC (RBC) [Mass/Vol] 34.5 g/dL Normal 30.5-36.0 [facility] Comment on above: Order Comment: Speci men Type: BLOOD SPECIMEN Ordering Facility: [facility] Address: [address] [place] [address] Performed By: #### 5 7021-8 #### [facility] CLIA [id number] [address] [place] [address] [place] MCV (RBC) [Entitic vol] 94.2 fL Normal 80.0-100.0 [facility] Comment on above: Order Comment: Speci men Type: BLOOD SPECIMEN Ordering Facility: [facility] Address: [address] [place] [address] Performed By: #### 5 7021-8 #### [facility] CLIA [id number] [address] [place] [address] [place] Monocytes (Bld) [#/Vol] 0.23 10*3/uL Normal <0.87 [facility] Comment on above: Order Comment: Speci men Type: BLOOD SPECIMEN Ordering Facility: [facility] Address: [address] [place] [address] Performed By: #### 5 7021-8 #### [facility] CLIA [id number] [address] [place] [address] [place] Monocytes/100 WBC (Bld) 3.2 % Normal [facility] Comment on above: Order Comment: Speci men Type: BLOOD SPECIMEN Ordering Facility: [facility] Address: [address] [place] [address] Performed By: #### 5 7021-8 #### [facility] CLIA [id number] [address] [place] [address] [place] Neutrophils (Bld) [#/Vol] 6.43 10*3/uL Normal 1.45-7.50 [facility] Comment on above: Order Comment: Speci men Type: BLOOD SPECIMEN Ordering Facility: [facility] Address: [address] [place] [address] Performed By: #### 5 7021-8 #### [facility] CLIA [id number] [address] [place] [address] [place] Neutrophils/100 WBC (Bld) 89.5 % Normal [facility] Comment on above: Order Comment: Speci men Type: BLOOD SPECIMEN Ordering Facility: [facility] Address: [address] [place] [address] Performed By: #### 5 7021-8 #### [facility] CLIA [id number] [address] [place] [address] [place] Nucleated RBC (Bld) [#/Vol] 10*3/uL Normal <0.01 [facility] Comment on above: Order Comment: Speci men Type: BLOOD SPECIMEN Ordering Facility: [facility] Address: [address] [place] [address] Performed By: #### 5 7021-8 #### [facility] CLIA [id number] [address] [place] [address] [place] Nucleated RBC/100 WBC (Bld) [Ratio] 0.0 /100 WBC Normal [facility] Comment on above: Order Comment: Speci men Type: BLOOD SPECIMEN Ordering Facility: [facility] Address: [address] [place] [address] Performed By: #### 5 7021-8 #### [facility] CLIA [id number] [address] [place] [address] [place] Platelet mean volume (Bld) [Entitic vol] 10.0 fL Normal 9.0-12.7 [facility] Comment on above: Order Comment: Speci men Type: BLOOD SPECIMEN Ordering Facility: [facility] Address: [address] [place] [address] Performed By: #### 5 7021-8 #### [facility] CLIA [id number] [address] [place] [address] [place] Platelets (Bld) [#/Vol] 144 10*3/uL Low 150-400 [facility] Comment on above: Order Comment: Speci men Type: BLOOD SPECIMEN Ordering Facility: [facility] Address: [address] [place] [address] Performed By: #### 5 7021-8 #### [facility] CLIA [id number] [address] [place] [address] [place] RBC (Bld) [#/Vol] 4.12 10*6/uL Normal 3.90-5.20 [facility] Comment on above: Order Comment: Speci men Type: BLOOD SPECIMEN Ordering Facility: [facility] Address: [address] [place] [address] Performed By: #### 5 7021-8 #### [facility] CLIA [id number] [address] [place] [address] [place] WBC (Bld) [#/Vol] 7.18 10*3/uL Normal 3.70-11.00 [facility] Comment on above: Order Comment: Speci men Type: BLOOD SPECIMEN Ordering Facility: [facility] Address: [address] [place] [address] Performed By: #### 5 7021-8 #### [facility] CLIA [id number] [address] [place] [address] [place] HIGH SENSITIVITY TROPONIN To n 07-24-2024 Troponin T.cardiac High sensitivity method [Mass/Vol] 8 ng/L Normal <12 [facility] Comment on above: Order Comment: Speci men Type: BLOOD SPECIMEN Ordering Facility: [facility] Address: [address] [place] [address] [place] [address] Performed By: #### 2 4321-2, HSTNT, , 2776-07 #### [facility] CLIA [id number] [address] [place], [place] [address] [place] Magnesium SerPl-mCncon 07-24 Magnesium [Mass/Vol] 1.7 mg/dL Normal 1.7-2.3 [facility] Comment on above: Order Comment: Speci men Type: BLOOD SPECIMEN Ordering Facility: [facility] Address: [address] [place] [address] Performed By: #### 2 4321-2, HSTNT, , 2776-07 #### [facility] CLIA [id number] [address] [place], [place] [address] [place] OPERATIVE NOon 07-24-2024 OPERATIVE NO HNO ID: [id number] Author: XAVIER BOYD MD Service: General Surgery Author Type: Physician Type: Operative Report Filed: 07/24/2024 14:31 Note Text: OPERATIVE/PROCEDURE REPORT LOG ID: [id number] SURGERY/PROCEDURE DATE: 07/24/2024 INCISION/PROCEDURE START TIME: 11:37 AM INCISION CLOSE/PROCEDURE END TIME: 2:12 PM SURGEON(S)/PROCEDURALIS T(S) AND SALES SERVICE SUPERVISOR(S): Surgeons and Role: * Xavier Boyd MD [...] and right subcostal regions. An assistant professor of drama 5 mm trocar was placed in the left lower abdomen. A 5 mm Sheila-Pencer Mimi Flex liver retractor was placed through the lateral 5 mm trocar and utilized to retract the left lobe of the liver anteriorly. It was held in position with a laparoscopic holding device clamped to the side of the bed. Beginning at the twelve o'clock position on the ktahia, the hernia sac was grasped and reduced [...] retroesophageal window was created and a 1/4? [place] drain was used to encircle the esophagus [...] assist with this case. The assistant professor of drama performed retraction and assisted with exposure. PRE-OP/PRE-PROCEDURE DIAGNOSIS: Type III paraesophageal hernia, symptomatic POST-OP/POST-PROCEDURE DIAGNOSIS: Same as Preop ESTIMATED BLOOD LOSS: 30 mls SPECIMENS: None IMPLANTABLE DEVICES: NONE DRAINS: None COMPLICATIONS: None CLOSURE TECHNIQUE: Primary PARTICIPATION IN SURGERY/PROCEDURE: I/primary surgeon/proceduralist performed the procedure with assistance. SIGNATURE: Xavier Boyd MD PATIENT NAME: Shey Boss DATE: July 24, 2024 TIME: 2:27 PM Normal [facility] Phosphate SerPl-mCncon 07-24 Phosphate [Mass/Vol] 3.6 mg/dL Normal 2.7-4.8 [facility] Comment on above: Order Comment: Speci men Type: BLOOD SPECIMEN Ordering Facility: [facility] Address: [address] [place] [address] Performed By: #### 2 4321-2, HSTNT, 2776-07 #### [facility] CLIA [id number] [address] [place] [address] [place] CBC W Auto Differential pane l (Bld)on 07-23-2024 Basophils (Bld) [#/Vol] 0.04 10*3/uL Normal <0.11 [facility] Comment on above: Order Comment: Speci men Type: BLOOD SPECIMEN Ordering Facility: [facility] Address: [address] [place] [address] Performed By: #### 2 4321-2, HSTNT, 2776-07 #### [facility] CLIA [id number] [address] [place] [address] [place] Basophils/100 WBC (Bld) 0.8 % Normal [facility] Comment on above: Order Comment: Speci men Type: BLOOD SPECIMEN Ordering Facility: [facility] Address: [address] [place] [address] Performed By: #### 2 4321-2, HSTNT, , 2776-07 #### [facility] CLIA [id number] [address] [place] [address] [place] Differential cell count method Nom (Bld) Auto Normal [facility] Comment on above: Order Comment: Speci men Type: BLOOD SPECIMEN Ordering Facility: [facility] Address: [address] [place] [address] Performed By: #### 2 4321-2, HSTNT, , 2776-07 #### [facility] CLIA [id number] [address] [place] [address] [place] Eosinophils (Bld) [#/Vol] 0.18 10*3/uL Normal <0.46 [facility] Comment on above: Order Comment: Speci men Type: BLOOD SPECIMEN Ordering Facility: [facility] Address: [address] [place] [address] Performed By: #### 2 4321-2, HSTNT, , 2776-07 #### [facility] CLIA [id number] [address] [place] [address] [place] Eosinophils/100 WBC (Bld) 3.7 % Normal [facility] Comment on above: Order Comment: Speci men Type: BLOOD SPECIMEN Ordering Facility: [facility] Address: [address] [place] [address] Performed By: #### 2 4321-2, HSTNT, , 2776-07 #### [facility] CLIA [id number] [address] [place] [address] [place] Erythrocyte distribution width (RBC) [Ratio] 13.9 % Normal 11.5-15.0 [facility] Comment on above: Order Comment: Speci men Type: BLOOD SPECIMEN Ordering Facility: [facility] Address: [address] [place] [address] Performed By: #### 2 4321-2, HSTNT, , 2776-07 #### [facility] CLIA [id number] [address] [place] [address] [place] Hematocrit (Bld) [Volume fraction] 39.0 % Normal 36.0-46.0 [facility] Comment on above: Order Comment: Speci men Type: BLOOD SPECIMEN Ordering Facility: [facility] Address: [address] [place] [address] Performed By: #### 2 4321-2, HSTNT, , 2776-07 #### [facility] CLIA [id number] [address] [place] [address] [place] Hemoglobin (Bld) [Mass/Vol] 13.4 g/dL Normal 11.5-15.5 [facility] Comment on above: Order Comment: Speci men Type: BLOOD SPECIMEN Ordering Facility: [facility] Address: [address] [place] [address] Performed By: #### 2 4321-2, HSTNT, , 2776-07 #### [facility] CLIA [id number] [address] [place] [address] [place] Immature granulocytes (Bld) [#/Vol] 10*3/uL Normal <0.10 [facility] Comment on above: Order Comment: Speci men Type: BLOOD SPECIMEN Ordering Facility: [facility] Address: [address] [place] [address] Performed By: #### 2 4321-2, HSTNT, , 2776-07 #### [facility] CLIA [id number] [address] [place] [address] [place] Immature granulocytes/100 WBC (Bld) 0.4 % Normal [facility] Comment on above: Order Comment: Speci men Type: BLOOD SPECIMEN Ordering Facility: [facility] Address: [address] [place] [address] Performed By: #### 2 4321-2, HSTNT, , 2776- #### [facility] CLIA [id number] [address] [place] [address] [place] Lymphocytes (Bld) [#/Vol] 2.00 10*3/uL Normal 1.00-4.00 [facility] Comment on above: Order Comment: Speci men Type: BLOOD SPECIMEN Ordering Facility: [facility] Address: [address] [place] [address] Performed By: #### 2 4321-2, HSTNT, , 2776-07 #### [facility] CLIA [id number] [address] [place] [address] [place] Lymphocytes/100 WBC (Bld) 41.3 % Normal [facility] Comment on above: Order Comment: Speci men Type: BLOOD SPECIMEN Ordering Facility: [facility] Address: [address] [place] [address] Performed By: #### 2 4321-2, HSTNT, , 2776-07 #### [facility] CLIA [id number] [address] [place] [address] [place] MCH (RBC) [Entitic mass] 32.5 pg Normal 26.0-34.0 [facility] Comment on above: Order Comment: Speci men Type: BLOOD SPECIMEN Ordering Facility: [facility] Address: [address] [place] [address] Performed By: #### 2 4321-2, HSTNT, , 2776-07 #### [facility] CLIA [id number] [address] [place] [address] [place] MCHC (RBC) [Mass/Vol] 34.4 g/dL Normal 30.5-36.0 [facility] Comment on above: Order Comment: Speci men Type: BLOOD SPECIMEN Ordering Facility: [facility] Address: [address] [place] [address] Performed By: #### 2 4321-2, HSTNT, , 2776-07 #### [facility] CLIA [id number] [address] [place] [address] [place] MCV (RBC) [Entitic vol] 94.7 fL Normal 80.0-100.0 [facility] Comment on above: Order Comment: Speci men Type: BLOOD SPECIMEN Ordering Facility: [facility] Address: [address] [place] [address] Performed By: #### 2 4321-2, HSTNT, , 2776-07 #### [facility] CLIA [id number] [address] [place] [address] [place] Monocytes (Bld) [#/Vol] 0.30 10*3/uL Normal <0.87 [facility] Comment on above: Order Comment: Speci men Type: BLOOD SPECIMEN Ordering Facility: [facility] Address: [address] [place] [address] Performed By: #### 2 4321-2, HSTNT, , 2776-07 #### [facility] CLIA [id number] [address] [place] [address] [place] Monocytes/100 WBC (Bld) 6.2 % Normal [facility] Comment on above: Order Comment: Speci men Type: BLOOD SPECIMEN Ordering Facility: [facility] Address: [address] [place] [address] Performed By: #### 2 4321-2, HSTNT, , 2776-07 #### [facility] CLIA [id number] [address] [place] [address] [place] Neutrophils (Bld) [#/Vol] 2.30 10*3/uL Normal 1.45-7.50 [facility] Comment on above: Order Comment: Speci men Type: BLOOD SPECIMEN Ordering Facility: [facility] Address: [address] [place] [address] Performed By: #### 2 4321-2, HSTNT, , 2776-07 #### [facility] CLIA [id number] [address] [place] [address] [place] Neutrophils/100 WBC (Bld) 47.6 % Normal [facility] Comment on above: Order Comment: Speci men Type: BLOOD SPECIMEN Ordering Facility: [facility] Address: [address] [place] [address] Performed By: #### 2 4321-2, HSTNT, , 2776-07 #### [facility] CLIA [id number] [address] [place] [address] [place] Nucleated RBC (Bld) [#/Vol] 10*3/uL Normal <0.01 [facility] Comment on above: Order Comment: Speci men Type: BLOOD SPECIMEN Ordering Facility: [facility] Address: [address] [place] [address] Performed By: #### 2 4321-2, HSTNT, , 2776-07 #### [facility] CLIA [id number] [address] [place] [address] [place] Nucleated RBC/100 WBC (Bld) [Ratio] 0.0 /100 WBC Normal [facility] Comment on above: Order Comment: Speci men Type: BLOOD SPECIMEN Ordering Facility: [facility] Address: [address] [place] [address] Performed By: #### 2 4321-2, HSTNT, , 2776-07 #### [facility] CLIA [id number] [address] [place] [address] [place] Platelet mean volume (Bld) [Entitic vol] 10.2 fL Normal 9.0-12.7 [facility] Comment on above: Order Comment: Speci men Type: BLOOD SPECIMEN Ordering Facility: [facility] Address: [address] [place] [address] Performed By: #### 2 4321-2, HSTNT, , 2776-07 #### [facility] CLIA [id number] [address] [place] [address] [place] Platelets (Bld) [#/Vol] 169 10*3/uL Normal 150-400 [facility] Comment on above: Order Comment: Speci men Type: BLOOD SPECIMEN Ordering Facility: [facility] Address: [address] [place] [address] Performed By: #### 2 4321-2, HSTNT, , 2776-07 #### [facility] CLIA [id number] [address] [place] [address] [place] RBC (Bld) [#/Vol] 4.12 10*6/uL Normal 3.90-5.20 [facility] Comment on above: Order Comment: Speci men Type: BLOOD SPECIMEN Ordering Facility: [facility] Address: [address] [place] [address] Performed By: #### 2 4321-2, HSTNT, , 2776-07 #### [facility] CLIA [id number] [address] [place] [address] [place] WBC (Bld) [#/Vol] 4.84 10*3/uL Normal 3.70-11.00 [facility] Comment on above: Order Comment: Speci men Type: BLOOD SPECIMEN Ordering Facility: [facility] Address: [address] [place] [address] Performed By: #### 2 4321-2, HSTNT, , 2776-07 #### [facility] CLIA [id number] [address] [place], [place] [address] [place] CCF CBC W AUTO DIFF BLDon Basophils/100 WBC (Bld) 0.8 % [facility] BASOPHILS # BLD AUTO 0.04 [facility] DIFFERENTIAL METHOD BLD Auto [facility] EOSINOPHIL # BLD AUTO 0.18 [facility] LYMPHOCYTES # BLD AUTO 2 [facility] MONOCYTES # BLD AUTO 0.3 [facility] NEUTROPHILS # BLD AUTO 2.3 [facility] NRBC # BLD AUTO <0.01 [facility] NRBC/100 WBC BLD-RTO 0 /100 WBC [facility] PLATELET # BLD AUTO 169 [facility] PMV BLD AUTO 10.2 fL 9.0 - 12.7 fL [facility] WBC # BLD AUTO 4.84 [facility] Eosinophils/100 WBC (Bld) 3.7 % [facility] Erythrocyte distribution width (RBC) [Ratio] 13.9 % 11.5 - 15.0 % [facility] Hematocrit (Bld) [Volume fraction] 39 % 36.0 - 46.0 % [facility] Hemoglobin (Bld) [Mass/Vol] 13.4 g/dL 11.5 - 15.5 g/dL [facility] IMM GRANULOCYTES # BLD AUTO <0.03 [facility] IMM GRANULOCYTES/LEUK NFR BLD AUTO 0.4 % [facility] Lymphocytes/100 WBC (Bld) 41.3 % [facility] MCH (RBC) [Entitic mass] 32.5 pg 26.0 - 34.0 pg [facility] MCHC (RBC) [Mass/Vol] 34.4 g/dL 30.5 - 36.0 g/dL [facility] MCV (RBC) [Entitic vol] 94.7 fL 80.0 - 100.0 fL [facility] Monocytes/100 WBC (Bld) 6.2 % [facility] Neutrophils/100 WBC (Bld) 47.6 % [facility] RBC (Bld) [#/Vol] 4.12 10*6/uL 3.90 - 5.2 0 m/uL [facility] Specimen Type: BLOOD SPECIMEN Ordering Facility: [facility] Address: [address] [place] [address] Original Ordering Provider: KATARZYNA WHEAT [facility] CONFIRM BLOOD TYPEon 025 ABO B Normal [facility] Comment on above: Order Comment: Speci men Type: BLOOD SPECIMEN Ordering Facility: [facility] Address: [address] [place] [address] Performed By: #### 2 4321-2, HSTNT, , 2776-07 #### [facility] CLIA [id number] [address] [place] [address] [place] Rh Nom (Bld) Positive Normal [facility] Comment on above: Order Comment: Speci men Type: BLOOD SPECIMEN Ordering Facility: [facility] Address: [address] [place] [address] Performed By: #### 2 4321-2, HSTNT, , 2776-07 #### [facility] CLIA [id number] [address] [place] [address] [place] ABO group Nom (Bld) B [facility] Rh Nom (Bld) Positive [facility] Comprehensive metabolic 2000 panelon 07-23-2024 Albumin [Mass/Vol] 4.2 g/dL Normal 3.9-4.9 [facility] Comment on above: Order Comment: Speci men Type: BLOOD SPECIMEN Ordering Facility: [facility] Address: [address] [place] [address] Performed By: #### 2 4321-2, HSTNT, , 2776-07 #### [facility] CLIA [id number] [address] [place] [address] [place] ALP [Catalytic activity/Vol] 111 U/L Normal 34-123 [facility] Comment on above: Order Comment: Speci men Type: BLOOD SPECIMEN Ordering Facility: [facility] Address: [address] [place] [address] Performed By: #### 2 4321-2, HSTNT, , 2776-07 #### [facility] CLIA [id number] [address] [id number] [address] [place] ALT [Catalytic activity/Vol] 26 U/L Normal 7-38 [facility] Comment on above: Order Comment: Speci men Type: BLOOD SPECIMEN Ordering Facility: [facility] Address: [address] [place] [address] Performed By: #### 2 4321-2, HSTNT, , 2776-07 #### [facility] CLIA [id number] [address] [place] [address] [place] Anion gap [Moles/Vol] 10 mmol/L Normal 8-15 [facility] Comment on above: Order Comment: Speci men Type: BLOOD SPECIMEN Ordering Facility: [facility] Address: [address] [place] [address] Performed By: #### 2 4321-2, HSTNT, , 2776-07 #### [facility] CLIA [id number] [address] [place] [address] [place] AST [Catalytic activity/Vol] 28 U/L Normal 13-35 [facility] Comment on above: Order Comment: Speci men Type: BLOOD SPECIMEN Ordering Facility: [facility] Address: [address] [place] [address] Performed By: #### 2 4321-2, HSTNT, , 2776-07 #### [facility] CLIA [id number] [address] [place] [address] [place] Bilirubin [Mass/Vol] 0.5 mg/dL Normal 0.2-1.3 [facility] Comment on above: Order Comment: Speci men Type: BLOOD SPECIMEN Ordering Facility: [facility] Address: [address] [place] [address] Performed By: #### 2 4321-2, HSTNT, , 2776-07 #### [facility] CLIA [id number] [address] [place] [address] [place] Calcium [Mass/Vol] 9.4 mg/dL Normal 8.5-10.2 [facility] Comment on above: Order Comment: Speci men Type: BLOOD SPECIMEN Ordering Facility: [facility] Address: [address] [place] [address] Performed By: #### 2 4321-2, HSTNT, , 2776-07 #### [facility] CLIA [id number] [address] [place] [address] [place] Chloride [Moles/Vol] 108 mmol/L High 98-107 [facility] Comment on above: Order Comment: Speci men Type: BLOOD SPECIMEN Ordering Facility: [facility] Address: [address] [place] [address] Performed By: #### 2 4321-2, HSTNT, , 2776-07 #### [facility] CLIA [id number] [address] [place] [address] [place] CO2 [Moles/Vol] 23 mmol/L Normal 22-30 [facility] Comment on above: Order Comment: Speci men Type: BLOOD SPECIMEN Ordering Facility: [facility] Address: [address] [place] [address] Performed By: #### 2 4321-2, HSTNT, , 2776-07 #### [facility] CLIA [id number] [address] [place] [address] [place] Creatinine [Mass/Vol] 0.99 mg/dL High 0.58-0.96 [facility] Comment on above: Order Comment: Speci men Type: BLOOD SPECIMEN Ordering Facility: [facility] Address: [address] [place] [address] Performed By: #### 2 4321-2, HSTNT, , 2776-07 #### [facility] CLIA [id number] [address] [place] [address] [place] Creatinine and Glomerular filtration rate.predicted panel (S/P/Bld) 61 mL/min/1.73m??? Normal >=60 [facility] Comment on above: Order Comment: Fabiola bliss Type: BLOOD SPECIMEN Ordering Facility: [facility] Address: [address] [place] [address] Result Comment: Ira mated Glomerular Filtration Rate [...] #### 2 4321-2, HSTNT, , 2776-07 #### [facility] CLIA [id number] [address] [place] [address] [place] Glucose [Mass/Vol] 155 mg/dL High 74-99 [facility] Comment on above: Order Comment: Fabiola bliss Type: BLOOD SPECIMEN Ordering Facility: [facility] Address: [address] [place] [address] Result Comment: The [place] [employer] (ADA) provides guidance for cutoff [...] Standards of Medical Care in Diabetes 2016, [place] [employer]. Diabetes Care. 2016.39(Suppl 1). Performed By: #### 2 4321-2, HSTNT, , 2776-07 #### [facility] CLIA [id number] [address] [place] [address] [place] Potassium [Moles/Vol] 4.3 mmol/L Normal 3.7-5.1 [facility] Comment on above: Order Comment: Speci men Type: BLOOD SPECIMEN Ordering Facility: [facility] Address: [address] [place] [address] Performed By: #### 2 4321-2, HSTNT, , 2776- #### [facility] CLIA [id number] [address] [place] [address] [place] Protein [Mass/Vol] 6.9 g/dL Normal 6.3-8.0 [facility] Comment on above: Order Comment: Speci men Type: BLOOD SPECIMEN Ordering Facility: [facility] Address: [address] [place] [address] Performed By: #### 2 4321-2, HSTNT, , 2776- #### [facility] CLIA [id number] [address] [place] [address] [place] Sodium [Moles/Vol] 141 mmol/L Normal 136-144 [facility] Comment on above: Order Comment: Speci men Type: BLOOD SPECIMEN Ordering Facility: [facility] Address: [address] [place] [address] Performed By: #### 2 4321-2, HSTNT, , 2776- #### [facility] CLIA [id number] [address] [place] [address] [place] Urea nitrogen [Mass/Vol] 13 mg/dL Normal 7-21 [facility] Comment on above: Order Comment: Speci men Type: BLOOD SPECIMEN Ordering Facility: [facility] Address: [address] [place] [address] Performed By: #### 2 4321-2, HSTNT, , 2776- #### [facility] CLIA [id number] [address] [place], [place] [address] [place] ECG COMPLETEon 01-14-2025 ECG COMPLETE Ventricular Rate : 6 6 BPM Atrial Rate : 66 BPM P-R Interval : 158 ms QRS Duration : 78 ms Q-T Interval : 404 ms QTC Calculation(Bazett) : 423 ms Calculated P Salter Path : 32 degrees Calculated R Salter Path : 14 degrees Calculated T Salter Path : 54 degrees NORMAL SINUS RHYTHM NORMAL ECG Confirmed by MD MCCLENDON HEBA ([id number]) on 07/29/2024 12:16:17 PM NAME : SHEY BOSS PID : [id number] : 1950 Gender : Female Race : ORD : [id number] Procedure Date : Jul 23 2024 12:08:10 Edit Date : Jul 29 2024 12:16:18 Diagnosis: NORMAL SINUS RHYTHM NORMAL ECG Confirmed by MD MCCLENDON HEBA ([id number]) on 07/29/2024 12:16:17 PM Test Reason : Location : 119 : A17 A17 Overread By : MD MCCLENDON HEBA Edited By : MD MCCLENDON HEBA Referred By : XAVIER BOYD Acquired by : SADE HA [facility] HISTORY PHYSICALon HISTORY PHYSICAL HNO ID: [id number] Author: JAMIL DELACRUZ PA-C Service: ? Author Type: Physician Memorial Counselor Type: H&P Filed: 07/23/2024 14:03 Note Text: [...] W/ MESH (N/A) at the request of DrXavier Hodges MD for consultation. My final recommendation will [...] COVID-19 original vaccine, age 12+ yr, monovalent (SafetyTat-BIONTECH - PURPLE TOP) Only the first 3 [...] anticoagulation therap (more content not included)... Normal [facility] PT panel Coag (PPP)on 2024 INR Coag (PPP) [Relative time] 1.1 {INR} Normal 0.9-1.3 [facility] Comment on above: Order Comment: Speci men Type: BLOOD SPECIMEN Ordering Facility: [facility] Address: [address] [place] [address] Result Comment: Patricia min K Antagonist (VKA) Therapeutic Range: INR 2 to 3 (Target INR of 2.5) Note: For patients treated with VKA drugs, such as warfarin, the [place] [employer] 2012 Guideline recommends [...] to 3.5 (target INR of 3). Surendra GH, et al. Chest 2012, 141:7S-47S Keisha RA, et al. [facility] 2017, 70: 252-289 Performed By: #### 2 4321-2, HSTNT, , 2776- #### [facility] CLIA [id number] [address] [place] [address] [place] PT Coag (PPP) [Time] 11.4 s Normal 9.7-13.0 [facility] Comment on above: Order Comment: Speci men Type: BLOOD SPECIMEN Ordering Facility: [facility] Address: [address] [place] [address] Performed By: #### 2 4321-2, HSTNT, , 2776- #### [facility] CLIA [id number] [address] [place] [address] [place] TYPE AND SCREEN,30 DAYon ABO B Normal [facility] Comment on above: Order Comment: Speci men Type: BLOOD SPECIMEN Ordering Facility: [facility] Address: [address] [place] [address] Performed By: #### 2 4321-2, HSTNT, , 2776- #### [facility] CLIA [id number] [address] [place] [address] [place] Rh Nom (Bld) Positive Normal [facility] Comment on above: Order Comment: Speci men Type: BLOOD SPECIMEN Ordering Facility: [facility] Address: [address] [place] [address] Performed By: #### 2 4321-2, HSTNT, , 2776- #### [facility] CLIA [id number] [address] [place] [address] [id number] [address] [place] XR CHEST 2V [...] soft tissues: Unremarkable. IMPRESSION: Large hiatal hernia. Plate Driller: PSCCandis Transcribe Date/Time: Jul 24 2024 7:28A Dictated by : JARVIS HUGO MD This examination was interpreted and the report reviewed and electronically signed by: JARVIS HUGO MD on Jul 24 2024 7:30AM EST [id number] Normal [facility] aPTT PPPon 07-23-2024 aPTT Coag (PPP) [Time] 25.5 s Normal 23.0-32.4 [facility] Comment on above: Order Comment: Speci men Type: BLOOD SPECIMEN Ordering Facility: [facility] Address: [address] [place] [id number] Performed By: #### 2 4321-2, HSTNT, , 7-1 #### [facility] CLIA [id number] [address] [place], [place] [id number] [place] [address] [place] CNOVon 04-29-2024 CNOV Office Visit (ARNOLDO ) SHEY BOSS ([id number]) 1950 F Date Time Provider Department 04/29/24 [...] No Yan Moser 04/29/2024 12:10 PM Signed [facility] - [...] Consents obtained Yan Moser MD General Surgery [facility], Xavier Acharya MD 04/29/2024 12:10 [...] and discussed (more content not included)... Normal [facility] Anca 04-22-2024 CNPN Telephone (GENADOLPHN) SHEY BOSS ([id number]) 1950 F Date Time Provider Department 04/22/24 ASHLIE CALDERON During your visit today, we recorded the following information about you: Ashlie Calderon 04/22/2024 5:39 PM Signed Spoke with PT she state no prior surgeries Allergies As of Date: 04/22/2024 (Not on File) Date Reviewed: Never Reviewed Problem List As Of Date: 04/22/2024 (None) Encounter Status:Closed by ASHLIE CALDERON on 04/22/24 Normal [facility] Surgical Pathology Reporton 03-26-2024 Surgical Pathology Report [facility] [address] [place] [address]- Surgical Pathology Report Collected Date/Time: 03/20/2024 12:52 [...] submitted in one cassette. (DC) DC:[facility] Microscopic Description Microscopic examination performed unless gross only specified. The use of one or more reagents in the above tests is regulated as an analyte specific reagent (ASR). The test or tests are ordered following initial H&E microscopic examination. The performance characteristics were determined by the [facility]. They have not been cleared or approved by the US Food and Drug Administration. The FDA has determined that such clearance or approval is not necessary. These tests are used for clinical purposes. They should not be regarded as investigational or for research. Appropriate positive and negative controls are performed and are acceptable. Normal [facility] Comment on above: Performed By: #### [id number] #### [facility] Laboratory [address] [place] [address] XR Esophaguson 03-26-2024 XR Esophagus Exam Date/Time: [...] mGy = 15.80 DAP = 464.17 Normal [facility] Main OR Intraoperative Recor don 03-22-2024 Main OR Intraoperative Record Main OR Intraoperative Record IntraOp Document Type FT Summary Primary Physician: Dafne Spears MD Finalized Date/Time: 03/22/24 14:46:15 Pt. Name: SHEY BOSS/Sex: 1950 Female Med Rec #: [id number] Physician: Dafne Spears MD Financial #: [id number] Pt. Type: O Room/Bed: / Admit/Disch: 03/20/24 [...] Attendee Mariella JOHNSON, Catalina Ivory CST, Анна Spears MD, Dafne Torres Role Performed POUNCER Scrub - Primary Surgeon - Primary Time In 03/20/24 12:44:00 03/20/24 12:44:00 03/20/24 12:44:00 Time Out 03/20/24 12:56:00 03/20/24 12:56:00 03/20/24 12:56:00 Procedure EGD(.) EGD(.) EGD(.) Comments Dr. Spears supervising procedure. Last Modified By: Mynor FORBES, Violette Lopez RN, Essence Pinto RN 03/22/24 14:45:45 03/20/24 12:56:36 03/20/24 12:56:36 Entry 4 Case Attendee Essnece Lopez RN Role Performed Systems Analysis Manager - Primary Time In 03/20/24 12:44:00 Time [...] Catalina Wolff CRNA, Given Participants Dianelys FORBES, Анна M, SarDafne dominguez MD, Schaffer RN, Kara N Time Out Complete 03/20/24 12:46:00 Outcomes Met? [...] gastric biopsy. Primary Procedure Yes Primary Surgeon Dafne Spears MD Start 03/20/24 12:49:00 Stop 03/20/24 12:53:00 Anesthesia [...] and tissue Entry 1 Skin Integrity Intact, [place], Warm, & Skin Abnormality No Dry Outcomes [...] Extended Positioning (more content not included)... Normal [facility] Discharge Instructionson Discharge Instructions Discharge Instructions SHEY BOSS :1950 Visit Date:03/20/2024 Inpatient Discharge Instructions Your Care Team Admitting Physician - Dafne Spears MD Referring Physician - Yovanny OLIVO, Dafne Torres Reason for Your Visit [...] mg Tab) fluticasone nasal (Flonase 0.05 mg/inh Mountainair) losartan (losartan 25 mg Tab) multivitamin with [...] after Discharge Follow Up with Yovanny OLIVO, Dafne Torres, GAS, [facility] When: Comments: [...] Unchanged fluticasone nasal (Flonase 0.05 mg/ inh Mountainair) 2 Sprays Nasal Inhalation Every day Unchanged [...] get better (more content not included)... Normal [facility] Comment on above: Result Comment: Elec tronically Signed By: Kassy Barker I\.br\Date and Time Signed: 03/20/24 13:08 EDT Inpatient Patient Summaryon 03-20-2024 Inpatient Patient Summary Inpatient Patient Summary [place] [address] [facility] Clinical Discharge Instructions PERSON INFORMATION Name: SHEY BOSS [facility]#:[id number] PHYSICIANS Admitting Physician: Dafne Spears MD Attending [...] (at bedtime). fluticasone nasal (Flonase 0.05 mg/inh Mountainair) 2 Sprays Nasal Inhalation every day. losartan [...] bedtime) as needed for sleep. Comment: Normal [facility] Main OR PACU I Recordon 03-10 Main OR PACU I Record Main OR PACU I Record PACU Phase I Document Type FT Summary Primary Physician: Dafne Spears MD Finalized Date/Time: 03/20/24 13:37:02 Pt. Name: SHEY BOSS/Sex: 1950 Female Med Rec #: [id number] Physician: Dafne Spears MD Financial #: [id number] Pt. Type: O Room/Bed: / Admit/Disch: 03/20/24 [...] Signed By: Kassy Barker I 03/20/24 13:37 [facility] Main OR Preoperative Recordo n 03-20-2024 Main OR Preoperative Record Main OR Preoperative Record Holding Area Document Type FT Summary Primary Physician: Dafne Spears MD Finalized Date/Time: 03/20/24 11:17:32 Pt. Name: SHEY BOSS/Sex: 1950 Female Med Rec #: [id number] Physician: Dafne Spears MD Financial #: [id number] Pt. Type: O Room/Bed: / Admit/Disch: 03/20/24 [...] By: Essence Lopez RN 03/20/24 11:17 Normal [facility] Outpatient Surgery Discharge Instructionon 03-20-2024 Outpatient Surgery Discharge Instruction Outpatient Surgery Discharge Instruction [address] [address] Patient Discharge Instructions PERSON INFORMATION Name: SHEY BOSS Date of : 1950 Current Date: 03/20/2024 12:58:56 PHYSICIANS Admitting Physician: Dafne Spears MD Discharge Diagnosis: SHEY BOSS has been [...] Information: You may receive a survey from [employer] asking you to rate your care experience. [...] (at bedtime). fluticasone nasal (Flonase 0.05 mg/inh Mountainair) 2 Sprays Nasal Inhalation every day. losartan [...] sleep. PATIENT EDUCATION INFORMATION Instructions: Medication Leaflets: [facility] Proceduralon 03-20-2024 Procedural Procedural Patient: SHEY BOSS Age: 73 years Sex: Female : 1950 Associated Diagnoses: None Author: Ganga OLIVO, Daquan Olea Postoperative Information Postoperative disposition: Postoperative disposition: To PACU. Optimetrix number: Optimetrix number [id number]. Anesthetic utilized: General. Health Status Allergies: Allergic [...] when meets criteria ( To home ). [facility] Procedural Procedural Patient: SHEY BOSS Age: [...] 1 tab, Oral, Daily Flonase 0.05 mg/inh Mountainair: 2 spray(s), Nasal, Daily, Refill(s) 0, Dry [...] a day (at bedtime) Flonase 0.05 mg/inh Mountainair 2 spray(s), Nasal, Daily losartan 25 mg [...] All Problems BMI 39.0-39.9,adult / SNOMED CT 402396221 / Confirmed Chronic obstructive pulmonary disease / SNOMED CT 52596729 / Confirmed Dyslipidemia / SNOMED CT 2470747278 / Confirmed Dysphagia / SNOMED CT 43690545 / Confirmed GERD (gastroesophageal reflux disease) / SNOMED CT 067286683 / Confirmed Hiatal hernia / SNOMED CT 444195477 / Confirmed HTN (hypertension) / SNOMED CT 6541852677 / Confirmed Insomnia / SNOMED CT 509768178 / Confirmed Lower extremity edema / SNOMED CT 988404117 / Confirmed Morbid obesity / SNOMED CT 966908003 / Confirmed EDWIN (obstructive sleep apnea) / SNOMED CT 341270520 / Confirmed Screening for malignant neoplasm of colon / SNOMED CT 283098751 / Confirmed Seasonal allergic rhinitis / SNOMED CT 428102742 / Confirmed TIA (transient ischemic attack) / SNOMED CT 018622743 / Confirmed Resolved: At risk for falls / SNOMED CT 227869483 Problem added when Risk for Falls Careplan was initiated. Resolved due to patient discharge. Resolved: Hernia / SNOMED CT 239519261 Resolved: Potential for deficient knowledge of cerebrovascular accident (CVA) / IMO 14383741 problem added based on Stroke Powerplan ordered. Resolved due to patient discharge. Resolved: Sleep apnea / SNOMED CT 614334597, Active Problems (14) BMI 39.0-39.9,adult Chronic obstructive pulmonary disease Dyslipidemia Dysphagia GERD (gastroesophageal reflux disease) Hiatal hernia HTN (hypertension) Insomnia Lower extremity edema Morbid obesity EDWIN (obstructive sleep apnea) Screening for malignant neoplasm of colon Seasonal allergic rhinitis TIA (transient ischemic (more content not included)... Normal [facility] ALL FOLIC ACIDon 03-07-2024 FOLATE 23.60 ng/mL 8.60 - 58.90 ng/mL [facility] ALL THYROID STIM HORMONEon 0 03-07-2024 TSH Qn 2.782 m[IU]/L [facility] No Panel Informationon 03-07 [facility] Ambulatory Visit Summaryon 0 02-26-2024 Ambulatory [...] mg Tab) fluticasone nasal (Flonase 0.05 mg/inh Mountainair) losartan (losartan 25 mg Tab) multivitamin with [...] Unchanged fluticasone nasal (Flonase 0.05 mg/ inh Mountainair) 2 Sprays Nasal Inhalation Every day Contact [...] or gangrene) reports she had esophagram in [place] no egd in the past declined surgery [...] a day (at bedtime) Flonase 0.05 mg/inh Mountainair, 2 spray(s), Nasal, Daily losartan 25 mg [...] virus vaccine, inactivated 05/03/2022 Recorded SARS-CoV-2 (COVID-19) [id number] 05/03/2022 Recorded influenza virus vaccine, inactivated 04/12/2021 [...] influenza virus vaccine, inactivated 04/16/2015 Recorded Normal [facility] Comment on above: Result Comment: Elec tronically Signed By: Yovanny OLIVO, Dafne Torres\.br\Date and Time Signed: 02/26/24 09:38 EDT IntraOperative Documentson 0 10-19-2023 IntraOperative Documents [id number] 0TIFF [facility] Consenton 10-16-2023 Consent [id number]#1.00 TIFF [facility] Discharge Instructionson Discharge Instructions [id number]#1.00 TIFF [facility] Main OR Intraoperative Recor don 10-16-2023 Main OR Intraoperative Record IntraOp Document Type FT Summary Primary Physician: Pa WEBB MD Finalized Date/Time: 10/16/23 09:46:21 Pt. Name: SHEY BOSS/Sex: 1950 Female Med Rec #: [id number] Physician: Pa WEBB MD Financial #: [id number] Pt. Type: O Room/Bed: / Admit/Disch: 10/13/23 [...] Gross Role Performed Anesthesiologist Surgeon - Primary Systems Analysis Manager - Primary Memorial Counselor Time In 10/13/23 08:55:00 10/13/23 08:55:00 10/13/23 [...] Participants TRACEY OLIVO, Coretta Garrido Micala E, Crosby RN, Kimberly Gross Time Out Complete 10/13/23 08:58:00 Outcomes Met? [...] and tissue Entry 1 Skin Integrity Intact, [place], Warm, and Skin Abnormality No Dry Outcomes [...] Infante RN (more content not included)... Normal [facility] Postoperative Documentson Postoperative Documents [id number]#1.00 TIFF Normal [facility] Reminderson 10-16-2023 Reminders - From: Nhi Aguirre LPN To: N - Clinical; Sent: 10/16/2023 10:15:48 EDT Show up: 09/11/2033 07:00:00 EST Subject: colonoscopy recall Due Date/Time: 10/12/2033 07:00:00 EDT Reminder/Recall Patient due for screening colonoscopy 10/12/2033. Normal [facility] Colonoscopy Procedure Report on 10-13-2023 Colonoscopy [...] extent examined. Images Procedure images: anal canal [id number]_hd_video_ [id number].jpg ileocecalvalve Rec1_hd_video_ [id number].jpg appendiceal orificie . Post-Procedure Complications: none. Estimated blood loss: none. Specimens: none. Devices/ implants: none left in place. Impression and Plan Diagnosis: Encounter for screening for malignant neoplasm of rectum (RIJ95-SX Z12.12, Discharge, Medical). Course: Progressing as expected. Recommendations: Repeat colonoscopy:: In 10 years. Follow-up:: if problems/questions. Diet:: Regular diet. Medication resumption:: Continue current medications. Return to activities:: After 24 hours. Education and Follow-up: Counseled: Family. [facility] Comment on above: Other Comment: Samreen dueñas Attachment - attachment storage system not supported [id number] Can be viewed in source systemMissing Attachment - attachment storage system not supported [id number] Can be viewed in source systemMiHandmark Attachment - attachment storage system not supported [id number] Can be viewed in source systemMiHandmark Attachment - attachment storage system not supported 7041565 Can be viewed in source systemMiHandmark Attachment - attachment storage system not supported [id number] Can be viewed in source system Consent for Treatmenton Consent for Treatment [id number] IFF [facility] Discharge Instructionson Discharge Instructions SHEY [...] mg Tab) fluticasone nasal (Flonase 0.05 mg/inh Mountainair) losartan (losartan 25 mg Tab) multivitamin with [...] Pa WEBB When: Only if needed Where: [address] [place], [place] [address], [address] [address]- Business (1) Medications What How [...] Unchanged fluticasone nasal (Flonase 0.05 mg/ inh Mountainair) 2 Sprays Nasal Inhalation Every day Unchanged [...] as instru (more content not included)... Normal [facility] Comment on above: Result Comment: Elec tronically Signed By: Marcy FORDE, Mariaelena\.maikol\Date and Time Signed: 10/13/23 09:33 EDT Inpatient Patient Summaryon 10-13-2023 Inpatient Patient Summary [place] [id number] [facility] Clinical Discharge Instructions PERSON INFORMATION Name: SHEY BOSS PHYSICIANS Admitting Physician: Pa WEBB MD Attending Physician: Pa WEBB MD PCP: LATRELL JACK MD Discharge Diagnosis: Encounter for colorectal cancer screening; Encounter for screening for malignant neoplasm of rectum Comment: PATIENT EDUCATION INFORMATION Instructions: Medication Leaflets: Follow up: With: Address: When: [facility], [address], [place] [address] Business (1) , only if needed MEDICATION [...] (at bedtime). fluticasone nasal (Flonase 0.05 mg/inh Mountainair) 2 Sprays Nasal Inhalation every day. losartan [...] bedtime) as needed for sleep. Comment: Normal [facility] Main OR PACU I Recordon Main OR PACU I Record PACU Phase I Document Type FT Summary Primary Physician: Pa WEBB MD Finalized Date/Time: 10/13/23 09:54:27 Pt. Name: KARYNALPA SILVERMANÁNGELA Willett/Sex: 1950 Female Med Rec #: [id number] Physician: Pa WEBB MD Financial #: [id number] Pt. Type: O Room/Bed: / Admit/Disch: 10/13/23 [...] Signed By: Mariaelena Vidal RN 10/13/23 09:54 [facility] Main OR Preoperative Recordo n 10-13-2023 Main OR Preoperative Record Holding Area Document Type FT Summary Primary Physician: Pa WEBB MD Finalized Date/Time: 10/13/23 08:06:06 Pt. Name: SHEY BOSS/Sex: 1950 Female Med Rec #: [id number] Physician: Pa WEBB MD Financial #: [id number] Pt. Type: O Room/Bed: / Admit/Disch: 10/13/23 [...] By: Trip Domínguez 10/13/23 08:03:15 Finalized By: Trip Domínguez Document Signatures Signed By: Trip Domínguez 10/13/23 08:06 Normal [facility] Monitor Recordon 10-13-2023 Monitor Record [id number]#1.00 TIFF [facility] Monitor Record [id number]#1.00 TIFF [facility] Outpatient Surgery Discharge Instructionon 10-13-2023 Outpatient Surgery Discharge Instruction [address] [address] Patient Discharge Instructions PERSON INFORMATION [...] Follow up: With: Address: When: Pa WEBB [address] [place], [place] [address], [address], [address] [address] Business (1) , only if needed Pharmacy [...] (at bedtime). fluticasone nasal (Flonase 0.05 mg/inh Mountainair) 2 Sprays Nasal Inhalation every day. losartan [...] sleep. PATIENT EDUCATION INFORMATION Instructions: Medication Leaflets: [facility] Patient Education - Texton 0 [...] or gets worse throughout the day. Normal [facility] Progress Note-Physicianon Progress Note-Physician Patient: SHEY BOSS Age: 73 years Sex: Female : 1950 Associated Diagnoses: None Author: Shaji Bethea Jr., DO Postoperative Information Postoperative disposition: Postoperative disposition: Home. Optimetrix number: Optimetrix number [id number]. Anesthetic utilized: General. Physical Examination Vital Signs [...] Surgery Unit, and To home ). Normal [facility] Comment on above: Result Comment: Elec [...] m2 Documented Medications Documented Flonase 0.05 mg/inh Mountainair: 2 spray(s), Nasal, Daily, Refill(s) 0, Dry [...] a day (at bedtime) Flonase 0.05 mg/inh Mountainair 2 spray(s), Nasal, Daily losartan 25 mg [...] All Problems BMI 39.0-39.9,adult / SNOMED CT 088267197 / Confirmed Chronic obstructive pulmonary disease / SNOMED CT 62677282 / Confirmed Dyslipidemia / SNOMED CT 0271274391 / Confirmed GERD (gastroesophageal reflux disease) / SNOMED CT 487146080 / Confirmed Hiatal hernia / SNOMED CT 191917081 / Confirmed HTN (hypertension) / SNOMED CT 0149740189 / Confirmed Insomnia / SNOMED CT 087500584 / Confirmed Lower extremity edema / SNOMED CT 035188583 / Confirmed Morbid obesity / SNOMED CT 006706228 / Confirmed EDWIN (obstructive sleep apnea) / SNOMED CT 821049681 / Confirmed Screening for malignant neoplasm of colon / SNOMED CT 629841565 / Confirmed Seasonal allergic rhinitis / SNOMED CT 613057523 / Confirmed TIA (transient ischemic attack) / SNOMED CT 364454412 / Confirmed Resolved: At risk for falls / SNOMED CT 412290253 Problem added when Risk for Falls Careplan was initiated. Resolved due to patient discharge. Resolved: Hernia / SNOMED CT 893471294 Resolved: Potential for deficient knowledge of cerebrovascular accident (CVA) / IMO 40170758 problem added based on Stroke Powerplan ordered. Resolved due to patient discharge. Resolved: Sleep apnea / SNOMED CT 578098303 Histories Past Medical History: Resolved Hernia (900202891): Resolved. Sleep apnea (124808487): Resolved. Procedure history: ORIF - Open reduction of fracture of ankle with internal fixation (611186203347695). Meniscal repair (190912699). Tonsillectomy (662421832). Hand tendon repaired (477274391). Social History Social & Psychosocial Habits Alcohol 09/12/2023 Frequency: 1-2 times per year Substance Abuse Comment: denies - 03/03/2021 07:19 - Carolyn Stewart RN 09/12/2023 Risk Assessment: Denies Substance Abuse Tobacco 09/12/2023 Tobacco Use: Former smoker, quit more Smokeless tobacco use: Never Type: Cigarettes . Physical Examination Vital Signs 10/13/2023 8:03 EDT Temperature Temporal Artery 36.3 DegC (more content not included)... Normal [facility] Comment on above: Result Comment: Elec tronically Signed By: Lake Higuera DO, Shaji Alicia\.br\Date and Time Signed: 10/13/23 08:04 EDT Consent for Procedure/Surger yon 09-13-2023 Consent for Procedure/Surgery [id number] FF Normal [facility] Ambulatory Visit Summaryon 0 09-12-2023 Ambulatory [...] mg Tab) fluticasone nasal (Flonase 0.05 mg/inh Mountainair) losartan (losartan 25 mg Tab) multivitamin with [...] Unchanged fluticasone nasal (Flonase 0.05 mg/ inh Mountainair) 2 Sprays Nasal Inhalation Every day Contact [...] for choosing us for your care. [facility] Provider Letteron 08-25-2023 Provider Letter (Inserted Image. Celia ble to display) August 25, 2023 SHEY BOSS [address] [place] [address] : 1950 Dear Michelle Karyn, We have been trying to reach you with no success regarding a referral from Dr Jack. It is important that you return our call upon receiving this letter so that we can set up an appointment for you in either our [place] or [place] office. Also, at the time of your call, please provide us with your current demographic and insurance information. Thank you for your prompt attention to this matter. Sincerely, [facility] General Surgery [phone] Normal [facility] Physician Referralon 024 Physician Referral [id number] IFF Normal [facility] CT LUNG CANCER SCREENINGon 0 07-28-2022 [...] MEHNAZ SANTIAGO Date: 2022-07-28 15:28 Normal [facility] BNPon 02-22-2022 Natriuretic peptide B (Bld) [Mass/Vol] 108.0 pg/mL Normal <=900.0 [facility] Comment on above: Performed By: #### B MP, BNP, HSTROPN ####[facility] [address] [place] [address]Dr. Felisa Trujillo CBC AUTO DIFFon 02-22-2022 BASO # 0.0 103/ul Normal 0.0-0.1 [facility] Comment on above: Performed By: #### C BC ####[facility] [address] [place], [place] [address]Dr. Felisa Trujillo Basophils/100 WBC (Bld) 0.7 % Normal 0.2-2.0 [facility] Comment on above: Performed By: #### C BC ####[facility] [address] [place], [place] [address]Dr. Felisa Trujillo EO # 0.1 103/ul Normal 0.0-0.7 [facility] Comment on above: Performed By: #### C BC ####[facility] [address] [place], [place] [address]Dr. Felisa Trujillo Eosinophils/100 WBC (Bld) 1.4 % Normal 0.9-7.0 [facility] Comment on above: Performed By: #### C BC ####[facility] [address] [place], [place] [address]Dr. Felisa Trujillo Erythrocyte distribution width (RBC) [Ratio] 13.2 % Normal 11.0-15.0 [facility] Comment on above: Performed By: #### C BC ####[facility] [address] [place], [place] [address]Dr. Felisa Trujillo Hematocrit (Bld) [Volume fraction] 36.6 % Normal 36.0-48.0 [facility] Comment on above: Performed By: #### C BC ####[facility] [address] [place], [place] [address]Dr. Felisa Trujillo Hemoglobin (Bld) [Mass/Vol] 12.7 g/dL Normal 12.0-16.0 [facility] Comment on above: Performed By: #### C BC ####[facility] [address] [place] [address]Dr. Felisa Trujillo IG # 0.01 10e3/ul Normal 0.00-0.03 [facility] Comment on above: Performed By: #### C BC ####[facility] [address] [place] [address]DrMichelle Trujillo IG % 0.2 % Normal 0.0-0.5 [facility] Comment on above: Performed By: #### C BC ####[facility] [address] [place] [address]DrMichelle Trujillo LYMPH # 1.0 103/ul Critically low 1.2-3.8 [facility] Comment on above: Performed By: #### C BC ####[facility] [address] [place] [address]Dr. Felisa Trujillo Lymphocytes/100 WBC (Bld) 22.3 % Normal 20.5-60.0 [facility] Comment on above: Performed By: #### C BC ####[facility] [address] [place] [address]DrMichelle Trujillo MANUAL DIFF REQ NO Normal [facility] Comment on above: Performed By: #### C BC ####[facility] [address] [place] [address]Dr. Felisa Trujillo MCH (RBC) [Entitic mass] 31.8 pg Normal 26.7-34.0 [facility] Comment on above: Performed By: #### C BC ####[facility] [address] [place] [address]Dr. Felisa Trujillo MCHC (RBC) [Mass/Vol] 34.7 g/dL Normal 29.9-35.2 [facility] Comment on above: Performed By: #### C BC ####[facility] [address] [place] [address]DrMichelle Trujillo MCV (RBC) [Entitic vol] 91.7 fL Normal 81.0-99.0 [facility] Comment on above: Performed By: #### C BC ####[facility] [address] [place] [address]Dr. Felisa Trujillo MONO # 0.5 103/ul Normal 0.3-0.8 [facility] Comment on above: Performed By: #### C BC ####[facility] [address] [place] [address]Dr. Felisa Trujillo Monocytes/100 WBC (Bld) 11.7 % Normal 1.7-12.0 [facility] Comment on above: Performed By: #### C BC ####[facility] [address] [place] [id number]. Felisa Trujillo NEUT # 2.7 103/ul Normal 1.4-6.5 [facility] Comment on above: Performed By: #### C BC ####[place] [address] [address]Dr. Felisa Turjillo Neutrophils/100 WBC (Bld) 63.7 % Normal 43.0-75.0 [facility] Comment on above: Performed By: #### C BC ####[place] [address] [place] [id number]. Felisa Trujillo Platelet mean volume (Bld) [Entitic vol] 10.2 fL Normal 9.5-13.5 [facility] Comment on above: Performed By: #### C BC ####[place] [address] [address]Dr. Felisa Trujillo PLT 149 103/ul Critically low 150-[address] [facility] Comment on above: Performed By: #### C BC ####[place] [address] [address]578[address]Dr. Felisa Trujillo RBC 3.99 106/ul Critically low 4.20-5.40 [facility] Comment on above: Performed By: #### C BC ####[place] [address] [address]Dr. Felisa Trujillo WBC 4.3 103/ul Normal 4.0-11.0 [facility] Comment on above: Performed By: #### C BC ####[place] [address] [place], [place] [address]Dr. Felisa Trujillo Covid-19 PCR (CVDTB)on 02-07 SARS-CoV-2 (COVID-19) RNA DUGLAS+probe Ql (Unsp spec) Detected Critically abnormal NOT DETECTED [facility] Comment on above: Result Comment: This test is not yet approved or cleared by the [place] FDA. When there are no FDA-approved or cleared tests available, and other criteria are met, FDA can make tests available under an emergency access mechanism called an Emergency Use Authorization (EUA). The EUA for this test is supported by the [place] of Health and Human Service's declaration that [...] be used). Performed By: #### C VDTBH ####[place] [address] [place], [place] [address]Dr. Felisa Trujillo PROF CHEM 8 (BAS METB)on Anion gap [Moles/Vol] 14.9 mmol/L Normal [facility] Comment on above: Performed By: #### B MP, BNP, HSTROPN ####[place] [address] [place], [place] [address]Dr. Felisa Trujillo Calcium [Mass/Vol] 8.9 mg/dL Normal 8.5-10.1 [facility] Comment on above: Performed By: #### B MP, BNP, HSTROPN ####[place] [address] [place], [place] [address]Dr. Felisa Trujillo Chloride [Moles/Vol] 104 mmol/L Normal 98-107 [facility] Comment on above: Performed By: #### B MP, BNP, HSTROPN ####[place] [address] [place], [place] [address]Dr. Felisa Trujillo CO2 [Moles/Vol] 24.0 mmol/L Normal 21.0-32.0 [facility] Comment on above: Performed By: #### B MP, BNP, HSTROPN ####[place] [address] [place] [address]Dr. Felisa Trujillo Creatinine [Mass/Vol] 0.98 mg/dL Normal 0.55-1.02 [facility] Comment on above: Performed By: #### B MP, BNP, HSTROPN ####[place] [address] [place], [place] [address]Dr. Felisa Trujillo EGFR-AF PAPUA [place] GUINEAN >60 Normal >=60 [facility] Comment on above: Performed By: #### B MP, BNP, HSTROPN ####[place] [address] [place], [place] [address]Dr. Krystakun Trujillo EGFR-NON AF PAPUA [place] 56 mL/min/1.73m2 Critically low >=60 [facility] Comment on above: Performed By: #### B MP, BNP, HSTROPN ####[place] [address] [place], [place] [address]Dr. Felisa Trujillo Glucose [Mass/Vol] 136 mg/dL Critically high 74-106 [facility] Comment on above: Performed By: #### B MP, BNP, HSTROPN ####[place] [address] [place], [place] [address]Dr. Krystakun Trujillo Potassium [Moles/Vol] 3.9 mmol/L Normal 3.5-5.1 [facility] Comment on above: Performed By: #### B MP, BNP, HSTROPN ####[place] [address] [place], [place] [address]Dr. Felisa Trujillo Sodium [Moles/Vol] 139 mmol/L Normal 136-[address] [facility] Comment on above: Performed By: #### B MP, BNP, HSTROPN ####[place] [address] [place], [place] [address]Dr. Krystakun Trujillo Urea nitrogen [Mass/Vol] 14.0 mg/dL Normal 7.0-18.0 [facility] Comment on above: Performed By: #### B MP, BNP, HSTROPN ####[place] [address] [place] [address]Dr. Felisa Trujillo Urea nitrogen/Creatinine [Mass ratio] 14.3 mg/mg Normal [facility] Comment on above: Performed By: #### B MP, BNP, HSTROPN ####[place] [address] [place] [address]Dr. Felisa Trujillo TROPONIN, HIGH SENSITIVITYon 02-22-2022 HSTROP 5.9 pg/mL Normal 4.0-51.3 [facility] Comment on above: Result Comment: CUT- OFF POINTS HAVE BEEN ESTABLISHED BASED ON THE FOURTH UNIVERSAL DEFINITIONS OF MYOCARDIAL INFARCTION. THE UPPER REFERENCE LIMIT (URL) OF TROPONIN, DEFINED THE 99TH PERCENTILE OF cTnI DISTRIBUTION IN A REFERENCE POPULATION, HAS BEEN CONFIRMED THE DECISION THRESHOLD FOR GA DIAGNOSIS. Performed By: #### B MP, BNP, HSTROPN ####[place] [address] [place] [id number]. Felisa Trujillo XR CHEST 1 Von 02-22-2022 [...] MEHNAZ SANTIAGO Date: 2022-02-22 13:30 Normal [facility] MG MAMM SCREEN 3D RONALD CADon 11-11-2021 MG MAMM SCREEN 3D RONALD CAD Patient: SHEY BOSS Exam Date: 11/11/2021 : 1950 Gender:F Ordering : DR LATRELL JACK . Admission #: [id number] Family : Order #: [id number] CLICK HERE TO VIEW EXAM RADIOLOGY REPORT [...] lung cancer at age 46. LOCATION: [facility] BREAST COMPOSITION: Almost entirely fatty. FINDINGS: DIAGNOSTIC [...] MD on 11/11/2021 at 13:04 Normal [facility] BNPon 11-02-2021 Natriuretic peptide B (Bld) [Mass/Vol] 42.0 pg/mL Normal <=900.0 [facility] Comment on above: Performed By: #### H STROPN, CMP, BNP #### [facility] [address] [place] [address] Dr. Felisa Trujillo CBC AUTO DIFFon 11-02-2021 BASO # 0.1 103/ul Normal 0.0-0.1 [facility] Comment on above: Performed By: #### C BC #### [facility] [address] [place] [address] Dr. Felisa Trujillo Basophils/100 WBC (Bld) 0.8 % Normal 0.2-2.0 [facility] Comment on above: Performed By: #### C BC #### [facility] [address] [place] [address] Dr. Felisa Trujillo EO # 0.3 103/ul Normal 0.0-0.7 [facility] Comment on above: Performed By: #### C BC #### [facility] [address] [place] [address] Dr. Felisa Trujillo Eosinophils/100 WBC (Bld) 3.9 % Normal 0.9-7.0 [facility] Comment on above: Performed By: #### C BC #### [facility] [address] [place] [address] Dr. Felisa Trujillo Erythrocyte distribution width (RBC) [Ratio] 12.7 % Normal 11.0-15.0 [facility] Comment on above: Performed By: #### C BC #### [facility] [address] [place] [address] Dr. Felisa Trujillo Hematocrit (Bld) [Volume fraction] 40.2 % Normal 36.0-48.0 [facility] Comment on above: Performed By: #### C BC #### [facility] [address] [place] [address] Dr. Felisa Trujillo Hemoglobin (Bld) [Mass/Vol] 13.6 g/dL Normal 12.0-16.0 [facility] Comment on above: Performed By: #### C BC #### [facility] [address] [place] [address] Dr. Felisa Trujillo IG # 0.02 10e3/ul Normal 0.00-0.03 [facility] Comment on above: Performed By: #### C BC #### [facility] [address] [place] [address] Dr. Felisa Trujillo IG % 0.3 % Normal 0.0-0.5 [facility] Comment on above: Performed By: #### C BC #### [facility] [address] [place] [address] Dr. Felisa Trujillo LYMPH # 1.9 103/ul Normal 1.2-3.8 [facility] Comment on above: Performed By: #### C BC #### [facility] [address] [place] [address] Dr. Felisa Trujillo Lymphocytes/100 WBC (Bld) 30.0 % Normal 20.5-60.0 [facility] Comment on above: Performed By: #### C BC #### [facility] [address] [place] [address] Dr. Felisa Trujillo MANUAL DIFF REQ NO Normal [facility] Comment on above: Performed By: #### C BC #### [facility] [address] [address] [address] Felisa Trujillo MCH (RBC) [Entitic mass] 31.5 pg Normal 26.7-34.0 [facility] Comment on above: Performed By: #### C BC #### [facility] [address] [place] [address] Dr. Felisa Trujillo MCHC (RBC) [Mass/Vol] 33.8 g/dL Normal 29.9-35.2 [facility] Comment on above: Performed By: #### C BC #### [facility] [address] [place] [address] Dr. Felisa Trujillo MCV (RBC) [Entitic vol] 93.1 fL Normal 81.0-99.0 [facility] Comment on above: Performed By: #### C BC #### [facility] [address] [place] [address] Dr. Felisa Trujillo MONO # 0.6 103/ul Normal 0.3-0.8 [facility] Comment on above: Performed By: #### C BC #### [facility] [address] [place] [address] Dr. Felisa Trujillo Monocytes/100 WBC (Bld) 8.5 % Normal 1.7-12.0 [facility] Comment on above: Performed By: #### C BC #### [facility] [address] [place] [address] Dr. Felisa Trujillo NEUT # 3.7 103/ul Normal 1.4-6.5 [facility] Comment on above: Performed By: #### C BC #### [facility] [address] [place] [address] Dr. Felisa Trujillo Neutrophils/100 WBC (Bld) 56.5 % Normal 43.0-75.0 [facility] Comment on above: Performed By: #### C BC #### [facility] [address] [place] [address] Dr. Felisa Trujillo Platelet mean volume (Bld) [Entitic vol] 9.9 fL Normal 9.5-13.5 [facility] Comment on above: Performed By: #### C BC #### [facility] [address] [address] [address] Felisa Trujillo PLT 193 103/ul Normal 150-450 [facility] Comment on above: Performed By: #### C BC #### [facility] [address] [address] [address] Felisa Trujillo RBC 4.32 106/ul Normal 4.20-5.40 [facility] Comment on above: Performed By: #### C BC #### [facility] [address] [address] [address] Felisa Trujillo WBC 6.5 103/ul Normal 4.0-11.0 [facility] Comment on above: Performed By: #### C BC #### [facility] [address] [place] [address] Dr. Felisa Trujillo Covid-19 PCR (CVDTBH)on 10-09 SARS-CoV-2 (COVID-19) RNA DUGLAS+probe Ql (Unsp spec) Not detected Normal NOT DETECTED [facility] Comment on above: Result Comment: When diagnostic [...] for this test is supported by the [place] of Health and Human Service's declaration that [...] used). Performed By: #### C VDTBH #### [facility] [address] [place] [address] Dr. Felisa Trujillo LACTATE/LACTIC ACIDon 2021 Lactate [Moles/Vol] 1.0 mmol/L Normal 0.4-2.0 [facility] Comment on above: Performed By: #### L ACT ####[place] [address] [place] [address]Dr. Felisa Trujillo PH VENOUS BLOODon 11-02-2021 PCO2 VENOUS 40.3 mmHg Normal 40.0-52.0 [facility] Comment on above: Performed By: #### P HVEN ####[place] [address] [place] [address]Dr. Felisa Trujillo pH VENOUS 7.431 Critically high 7.330-7.430 [facility] Comment on above: Performed By: #### P HVEN ####[place] [address] [place] [address]Dr. Felisa Trujillo PROF 14(COMP METB)on 022 Albumin [Mass/Vol] 4.1 g/dL Normal 3.4-5.0 [facility] Comment on above: Performed By: #### H STROPN, CMP, BNP ####[place] [address] [place] [address]Dr. Felisa Trujillo Albumin/Globulin [Mass ratio] 1.1 {ratio} Normal [facility] Comment on above: Performed By: #### H STROPN, CMP, BNP ####[place] [address] [place] [address]Dr. Felisa Trujillo ALP [Catalytic activity/Vol] 120 U/L Critically high 46-116 [facility] Comment on above: Performed By: #### H STROPN, CMP, BNP ####[place] [address] [place] [address]Dr. Felisa Trujillo ALT [Catalytic activity/Vol] 29 U/L Normal 14-59 [facility] Comment on above: Performed By: #### H STROPN, CMP, BNP ####[place] [address] [place] [address]Dr. Felisa Trujillo Anion gap [Moles/Vol] 14.2 mmol/L Normal [facility] Comment on above: Performed By: #### H STROPN, CMP, BNP ####[place] [address] [place] [address]Dr. Felisa Trujillo AST [Catalytic activity/Vol] 24 U/L Normal 15-37 [facility] Comment on above: Performed By: #### H STROPN, CMP, BNP ####[place] [address] [place] [address]Dr. Felisa Trujillo Bilirubin [Mass/Vol] 0.6 mg/dL Normal 0.2-1.0 [facility] Comment on above: Performed By: #### H STROPN, CMP, BNP ####[place] [address] [place] [address]Dr. Felisa Trujillo Calcium [Mass/Vol] 8.8 mg/dL Normal 8.5-10.1 [facility] Comment on above: Performed By: #### H STROPN, CMP, BNP ####[place] [address] [place], [place] [address]Dr. Felisa Trujillo Chloride [Moles/Vol] 103 mmol/L Normal 98-107 [facility] Comment on above: Performed By: #### H STROPN, CMP, BNP ####[place] [address] [place], [place] [address]Dr. Felisa Trujillo CO2 [Moles/Vol] 25.3 mmol/L Normal 21.0-32.0 [facility] Comment on above: Performed By: #### H STROPN, CMP, BNP ####[place] [address] [place], [place] [address]Dr. Felisa Trujillo Creatinine [Mass/Vol] 0.86 mg/dL Normal 0.55-1.02 [facility] Comment on above: Performed By: #### H STROPN, CMP, BNP ####[place] [address] [place], [place] [address]Dr. Felisa Trujillo EGFR-AF PAPUA [place] GU[place]AN >60 Normal >=60 [facility] Comment on above: Performed By: #### H STROPN, CMP, BNP ####[place] [address] [place], [place] [address]Dr. Yilan Trujillo EGFR-NON AF PAPUA [place]AN >60 Normal >=60 [facility] Comment on above: Performed By: #### H STROPN, CMP, BNP ####[place] [address] [place] [address]Dr. Felisa Trujillo Globulin (S) [Mass/Vol] 3.6 g/dL Normal [facility] Comment on above: Performed By: #### H STROPN, CMP, BNP ####[place] [address] [place] [address]Dr. Felisa Trujillo Glucose [Mass/Vol] 90 mg/dL Normal 74-[address] [facility] Comment on above: Performed By: #### H STROPN, CMP, BNP ####[place] [address] [place] [address]Dr. Felisa Trujillo Potassium [Moles/Vol] 3.5 mmol/L Normal 3.5-5.1 [facility] Comment on above: Performed By: #### H STROPN, CMP, BNP ####[place] [address] [place] [address]Dr. Felisa Trujillo Protein [Mass/Vol] 7.7 g/dL Normal 6.1-8.[address] [facility] Comment on above: Performed By: #### H STROPN, CMP, BNP ####[place] [address] [place] [address]Dr. Felisa Trujillo Sodium [Moles/Vol] 139 mmol/L Normal 136-[address] [facility] Comment on above: Performed By: #### H STROPN, CMP, BNP ####[place] [address] [place] [address]Dr. Felisa Trujillo Urea nitrogen [Mass/Vol] 13.0 mg/dL Normal 7.0-18.0 [facility] Comment on above: Performed By: #### H STROPN, CMP, BNP ####[place] [address] [place] [address]Dr. Felisa Trujillo Urea nitrogen/Creatinine [Mass ratio] 15.1 mg/mg Normal [facility] Comment on above: Performed By: #### H STROPN, CMP, BNP ####[facility] [address] [place], [place] [address]XcDr. Felisa Trujillo PROTIMEon 11-02-2021 INR Coag (PPP) [Relative time] 0.99 {INR} Normal [facility] Comment on above: Performed By: #### P TT, PT #### [facility] [address] [address] [address] Felisa Trujillo INR GUIDELINES SEE BELOW Normal [facility] Comment on above: Result Comment: KAY RED INR: 2.0 - 3.0 CONDITIONS NOT LISTED BELOW 2.5 - 3.5 FOR PROSTHETIC HEART VALVE REPLACEMENT 2.5 - 3.5 RECURRENT THROMBOSIS Performed By: #### P TT, PT #### [facility] [address] [address] [address] Felisa Trujillo PT Coag (PPP) [Time] 10.7 s Normal 9.0-11.6 [facility] Comment on above: Performed By: #### P TT, PT #### [facility] [address] [address] [address] Felisa Trujillo PTTon 11-02-2021 aPTT Coag (Bld) [Time] 25.9 s Normal 22.3-36.2 [facility] Comment on above: Performed By: #### P TT, PT #### [facility] [address] [address] [address] Felisa Trujillo TROPONIN, HIGH SENSITIVITYon 11-02-2021 HSTROP 8.7 pg/mL Normal 4.0-51.3 [facility] Comment on above: Result Comment: CUT- OFF POINTS HAVE BEEN ESTABLISHED BASED ON THE FOURTH UNIVERSAL DEFINITIONS OF MYOCARDIAL INFARCTION. THE UPPER REFERENCE LIMIT (URL) OF TROPONIN, DEFINED THE 99TH PERCENTILE OF cTnI DISTRIBUTION IN A REFERENCE POPULATION, HAS BEEN CONFIRMED THE DECISION THRESHOLD FOR GA DIAGNOSIS. Performed By: #### H STROPN, CMP, BNP #### [facility] [address] [address] [address] Felisa Trujillo Covid-19 PCR (CVDTB)on SARS-CoV-2 (COVID-19) RNA DUGLAS+probe Ql (Unsp spec) Not detected Normal NOT DETECTED [facility] Comment on above: Result Comment: This test is not yet approved or cleared by the [place] FDA. When there are no FDA-approved or cleared tests available, and other criteria are met, FDA can make tests available under an emergency access mechanism called an Emergency Use Authorization (EUA). The EUA for this test is supported by the [employer] of Health and Human Service's (HHS's) declaration [...] consistent with SARS-CoV-2. Performed By: #### [facility] #### [facility] [address] [place] [address] Dr. Felisa Trujillo XR CHEST 2 Von [...] MEHNAZ SANTIAGO Date: 2021-09-02 14:39 Normal [facility] Lab - AP Resultson 9 Lab - AP Results [id number]#1.00OT GTIFF Normal [facility] Pathology Sendout Teston Pathology Send Out. See Report Normal [facility] Comment on above: Order Comment: left ring finger , cyst tendon sheath Performed By: #### 2 [id number] ####[facility] (DEFAULT)[address] [place] [address] Coding Summaryon 02-08-2019 Coding Summary CODING DATE: 019 [facility] STATUS: Home PAYOR: Medicare MC APC DESCRIPTION 5112 Level 2 Musculoskeletal Procedures ADMIT DX: REASON FOR VISIT DX: M65.342 Trigger finger, left ring finger FINAL DX: PRINCIPAL: M65.342 Trigger finger, left ring finger SECONDARY: M67.442 Ganglion, left hand J44.9 Chronic obstructive pulmonary disease, unspecified PYMT PROC APC STAT DESCRIPTION DOCTOR NAME DATE 93979 5112 J1 Excision of lesion of Daquan [...] Date Saved: 02/08/2019 11:52 am [facility] Consent Formson 02-05-2019 Consent Forms [id number]#1.00OT [facility] Discharge Instructionson Discharge Instructions [id number]#1.00OT [facility] History and Physicalon 02-05 History and Physical [id number]#1.00OT [facility] MAGR Intraoperative Recordon 02-05-2019 MAGR Intraoperative Record MAGR Intra-Op Record Summary Primary Physician: Daquan Antunez DO Finalized Date/Time: 02/05/19 07:41:01 Pt. Name: SHEY BOSS/Sex: 1950 FEMALE Med Rec #: [id number] Physician: Daquan Antunez DO Financial #: [id number] Pt. Type: D Room/Bed: / Admit/Disch: 02/04/19 [...] Role Performed Surgeon - Primary Anesthesiologist of Systems Analysis Manager Record Time In 02/04/19 15:31:00 02/04/19 15:31:00 02/04/19 15:31:00 Time Out 02/04/19 16:08:00 02/04/19 16:08:00 02/04/19 16:08:00 Procedure Trigger Finger Release Trigger Finger Release Trigger Finger Release Last Modified By: Toshia Plascencia RN, Barbara RN Long, Barbara RN 02/04/19 16:16:05 02/04/19 16:16:05 02/04/19 16:16:05 Entry 4 Entry 5 Case Attendee Paloma Esparza Regina CST Role Performed Scrub Personnel Heel Former Time In 02/04/19 15:31:00 02/04/19 15:31:00 Time [...] 02/04/19 16:03:00 Total Time 14 Applied By Dqauan Antunez Outcome Met (O.60) Yes Jeremy DO [...] Modify Pick List 02/05/19 07:40 MHBLONG Modify [facility] Medication Managementon 01-09 Medication Management [id number]#1.00OT [facility] Provider Orderson 02-05-2019 Provider Orders [id number]#1.00OT [facility] Anesthesia Noteon 02-04-2019 Anesthesia Note Patient: [...] Problems Chronic back pain / SNOMED CT 094261816 / Confirmed Former smoker / SNOMED CT 57647728 / Confirmed GERD (gastroesophageal reflux disease) / SNOMED CT 701485776 / Confirmed Scar tissue / SNOMED CT 653934410 / Confirmed Sleep apnea / SNOMED CT 864776627 / Confirmed Histories Family History: No family history items have been selected or recorded. Procedure history: Tonsillectomy (478101883). Epidural injection of lumbar spine using fluoroscopic guidance ([id number]). Social History Alcohol Assessment Use: Current. Beer, [...] rhythm. Review / Management Laboratory Results Plan [place] [employer] Anesthesiologists#(ASA) physical status classification: Class [...] 02/04/2019 15:44 EDT] Alirio Mcclellan MD Normal [facility] Inpatient Patient Summaryon 02-04-2019 [place] [address] Patient Discharge Instructions Name: SHEY BOSS : 52 Patient Address: [address] [place] [address] Primary Care Provider: Name: LATRELL JACK After you are discharged if you find you have any questions, please, call [phone] ext [phone] to speak to a nurse. Discharge Diagnosis: Trigger finger Prescription Information: If you have been given a prescription for narcotics, seek immediate medical attention if you have any difficulty breathing or any sudden status changes such as confusion and sleepiness. If you or anyone you know is experiencing suicidal thoughts, mental health, alcohol and/or drug addiction problems; contact the [facility] 30/01 Crisis Hotline -Text 4HOPE to 168024. If you received any narcotics, sedation, or [...] or sign any legal documents [facility] would like to thank you for allowing us to assist you with your healthcare needs. The following includes patient education materials and information regarding your injury/illness. SHEY BOSS has been given the following list of follow-up instructions, prescriptions, and patient education materials: Follow-up Instructions With: Address: When: Daquan Antunez [address], [address] [place] [address] Business (2) 02/12/2019 2:00 PM With: Address: When: LATRELL JACK [address] [place] [address] Abdiel [place], [place] [id number] [facility] (1) Medications During the course of [...] awake -DO NOT lift heavy objects or head of insight forcefully with the affected hand -DO NOT [...] or concerns, please call the office at [phone] or go to the emergency room -Follow [...] for Disease Control and Prevention [facility] Postoperative Record MAGR Phase II Record Summary Primary Physician: Daqaun Antunez DO Finalized Date/Time: 02/04/19 17:11:50 Pt. Name: SHEY BOSS NORMAN Willett/Sex: 1950 FEMALE Med Rec #: [id number] Physician: Daquan Antunez DO Financial #: [id number] Pt. Type: D Room/Bed: / Admit/Disch: 02/04/19 [...] Signed By: Jamil Garibay RN 02/04/19 17:11 [facility] Preoperative Recordon 0 02-04-2019 [facility] Preoperative Record [facility] Pre-Op Record Summary Primary Physician: Daquan Antunez DO Finalized Date/Time: 02/04/19 15:37:19 Pt. Name: ALPA BOSSÁNGELA Willett/Sex: 1950 FEMALE Med Rec #: [id number] Physician: Daquan Antunez DO Financial #: [id number] Pt. Type: D Room/Bed: / Admit/Disch: 02/04/19 [...] Plascencia RN 02/04/19 15:37 Normal [facility] Operative Report - Surgeon/P shalini [...] )transverse incision was made over the A1 hsirin. Blunt dissection was carried down towards A1 [...] 16:37 EDT] Daquan Antunez DO [facility] Patient Handouton 02-04-[address] [place] POST OPERATIVE INSTRUCTIONS FOR FINGER SURGERY/MALLET FINGER REPAIR SURGEONS WRITTEN INSTRUTCTIONS:' -Keep your hand elevated above your elbow for the first 24 hours after surgery and apply an ice bag at intervals for the first 24 hours -Wiggle the unaffected fingers frequently while awake -DO NOT lift heavy objects or head of insight forcefully with the affected hand -DO NOT [...] or concerns, please call the office at [phone] or go to the emergency room -Follow up as scheduled [facility] Progress Note - Nurseon 01-08 Progress Note - Nurse Spoke with pt regarding arrival time of 1145 and NPO status. Verbalized understanding. Pt instructed she will need a otr flatbed driver. Verbalized understanding. [Electronically Signed on: 02/01/2019 14:53 EDT] Kika Akers RN [Verified on: 02/01/2019 14:53 EDT] Kika Akers RN [facility] Coding Summaryon 01-29-2019 Coding Summary CODING DATE: 019 [facility] STATUS: Home PAYOR: Medicare MC APC [...] Date Saved: 01/29/2019 01:42 pm [facility] .Auto Diff 1on 01-28-2019 Auto Sandoval % 8 % Normal 1-12 [facility] Comment on above: Performed By: #### 7 [id number], [id number] #### [facility] (DEFAULT) [address] [place] [address] 10772 Baso Abs# 0.0 x10 Normal 0.0-0.2 [facility] Comment on above: Performed By: #### 7 [id number], [id number] #### [facility] (DEFAULT) [address] [place] [address] 77337 Basophils/100 WBC (Bld) 0.4 % Normal 0.2-2.0 [facility] Comment on above: Performed By: #### 7 [id number], [id number] #### [facility] (DEFAULT) [address] [place] [address] 05743 Eos Abs# 0.2 x10 Normal 0.0-0.4 [facility] Comment on above: Performed By: #### 7 [id number], [id number] #### [facility] (DEFAULT) [address] [place] [address] 32828 Eosinophils/100 WBC (Bld) 3.5 % Normal 0.9-4.0 [facility] Comment on above: Performed By: #### 7 [id number], [id number] #### [facility] (DEFAULT) [address] [place] [address] 91650 Lymphocytes (Bld) [#/Vol] 1.6 x10 Normal 1.3-2.9 [facility] Comment on above: Performed By: #### 7 [id number], [id number] #### [facility] (DEFAULT) [address] [place] [address] 45942 Lymphocytes/100 WBC (Bld) 32 % Normal 14-48 [facility] Comment on above: Performed By: #### 7 [id number], [id number] #### [facility] (DEFAULT) [address] [place] [address] 77186 Sandoval Abs# 0.4 x10 Normal 0.0-0.8 [facility] Comment on above: Performed By: #### 7 [id number], [id number] #### [facility] (DEFAULT) [address] [place] [address] 13271 Neut Abs# 2.8 x10 Normal 1.5-9.2 [facility] Comment on above: Performed By: #### 7 [id number], [id number] #### [facility] (DEFAULT) [address] [place] [address] 19468 Neutrophils/100 WBC (Bld) 56 % Normal 44-88 [facility] Comment on above: Performed By: #### 7 [id number], [id number] #### [facility] (DEFAULT) [address] [place] [address] 11958 CBC w/ Auto Diffon 9 Erythrocyte distribution width (RBC) [Ratio] 13.4 % Normal 11.5-15.0 [facility] Comment on above: Performed By: #### 7 [id number], [id number] #### [facility] (DEFAULT) [address] [place] [address] 32177 Hematocrit (Bld) [Volume fraction] 40.4 % Normal 33.7-40.4 [facility] Comment on above: Performed By: #### 7 [id number], [id number] #### [facility] (DEFAULT) [address] [place] [address] 77164 Hemoglobin (Bld) [Mass/Vol] 13.9 g/dL Normal 11.3-15.9 [facility] Comment on above: Performed By: #### 7 [id number], [id number] #### [facility] (DEFAULT) [address] [place] [address] 03553 Man Diff? Auto Normal [facility] Comment on above: Performed By: #### 7 [id number], [id number] #### [facility] (DEFAULT) [address] [place] [address] 26544 MCH (RBC) [Entitic mass] 31 pg Normal 24-34 [facility] Comment on above: Performed By: #### 7 [id number], [id number] #### [facility] (DEFAULT) [address] [place] [address] 44681 MCHC (RBC) [Mass/Vol] 34 g/dL Normal 26-37 [facility] Comment on above: Performed By: #### 7 [id number], [id number] #### [facility] (DEFAULT) [address] [place] [address] 78246 MCV (RBC) [Entitic vol] 90 fL Normal 81-100 [facility] Comment on above: Performed By: #### 7 [id number], [id number] #### [facility] (DEFAULT) [address] [place] [address] 87973 Platelet mean volume (Bld) [Entitic vol] 10.3 fL High 6.3-10.2 [facility] Comment on above: Performed By: #### 7 [id number], [id number] #### [facility] (DEFAULT) [address] [place] [address] 12324 Platelets (Bld) [#/Vol] 199 x10 Normal 138-427 [facility] Comment on above: Performed By: #### 7 [id number], [id number] #### [facility] (DEFAULT) [address] [place] [address] 58200 RBC (Bld) [#/Vol] 4.47 x10 Normal 3.70-5.30 [facility] Comment on above: Performed By: #### 7 [id number], [id number] #### [facility] (DEFAULT) [address] [place] [address] 16225 WBC (Bld) [#/Vol] 5.1 x10 Normal 3.5-10.5 [facility] Comment on above: Performed By: #### 7 [id number], [id number] #### [facility] (DEFAULT) [address] [place] [address] Vital Signs Date Time Vital Sign Value Performing Clinician Facility 12-04-2024 13:39-0400 Body height 160 cm Latrell Jack MD Work Phone: [facility] 12-04-2024 13:39-0400 Body mass index (BMI) [Ratio] 38.97 kg/m2 Latrell Jack MD Work Phone: [facility] 12-04-2024 13:39-0400 Body temperature 97.3 [degF] Latrell Jack MD Work Phone: [facility] 12-04-2024 13:39-0400 Body weight 99.79 kg Latrell Jack MD Work Phone: [facility] 12-04-2024 13:39-0400 Diastolic blood pressure 92 mm[Hg] Latrell Jack MD Work Phone: [facility] 12-04-2024 13:39-0400 Heart rate 97 /min Latrell Jack MD Work Phone: [facility] 12-04-2024 13:39-0400 Respiratory rate 22 /min Latrell Jack MD Work Phone: [facility] 12-04-2024 13:39-0400 SaO2% (BldA) [Mass fraction] 97 % Latrell Jack MD Work Phone: [facility] 12-04-2024 13:39-0400 Systolic blood pressure 186 mm[Hg] Latrell Jack MD Work Phone: [facility] 08-27-2024 10:25-0500 Body height 160 cm Latrell Jack MD Work Phone: [facility] 08-27-2024 10:25-0500 Body mass index (BMI) [Ratio] 36.14 kg/m2 Latrell Jack MD Work Phone: [facility] 08-27-2024 10:25-0500 Body temperature 95.9 [degF] Latrell Jack MD Work Phone: [facility] 08-27-2024 10:25-0500 Body weight 92.53 kg Latrell Jack MD Work Phone: [facility] 08-27-2024 10:25-0500 Diastolic blood pressure 68 mm[Hg] Latrell Jack MD Work Phone: [facility] 08-27-2024 10:25-0500 Heart rate 50 /min Latrell Jack MD Work Phone: [facility] 08-27-2024 10:25-0500 Respiratory rate 22 /min Latrell Jack MD Work Phone: [facility] 08-27-2024 10:25-0500 SaO2% (BldA) [Mass fraction] 97 % Latrell Jack MD Work Phone: [facility] 08-27-2024 10:25-0500 Systolic blood pressure 140 mm[Hg] Latrell Jack MD Work Phone: [facility] 08-07-2024 14:04-0500 Body height 162.6 cm [employer]IST[employer] VICE PRESIDENT[employer] Work Phone: [facility] 08-07-2024 14:04-0500 Body mass index (BMI) [Ratio] 34.84 kg/m2 [employer]IST[employer] VICE PRESIDENT[employer] Work Phone: [facility] 08-07-2024 14:04-0500 Body temperature 97.59 [degF] [employer]IST[employer] VICE PRESIDENT[employer] Work Phone: [facility] 08-07-2024 14:04-0500 Body weight 92.08 kg [employer]IST[employer] VICE PRESIDENT[employer] Work Phone: [facility] 08-07-2024 14:04-0500 Diastolic blood pressure 72 mm[Hg] [employer]IST[employer] VICE PRESIDENT[employer] Work Phone: [facility] 08-07-2024 14:04-0500 Heart rate 75 /min Katarzyna Snyder LOGISTICS VICE PRESIDENT.[employer] Work Phone: [facility] 08-07-2024 14:04-0500 Systolic blood pressure 151 mm[Hg] Katarzyna Snyder LOGISTICS VICE PRESIDENT[employer] Work Phone: [facility] 07-23-2024 12:49-0500 Body height 160 cm Pacc 5 Work Phone: [facility] 07-23-2024 12:49-0500 Body mass index (BMI) [Ratio] 37.45 kg/m2 [employer] 5 Work Phone: [facility] 07-23-2024 12:49-0500 Body temperature 98.01 [degF] Pacc 5 Work Phone: [facility] 07-23-2024 12:49-0500 Body weight 95.9 kg Pacc 5 Work Phone: [facility] 07-23-2024 12:49-0500 Diastolic blood pressure 73 mm[Hg] Pacc 5 Work Phone: [facility] 07-23-2024 12:49-0500 Heart rate 77 /min Pacc 5 Work Phone: [facility] 07-23-2024 12:49-0500 Respiratory rate 20 /min Pacc 5 Work Phone: [facility] 07-23-2024 12:49-0500 SaO2% (BldA) [Mass fraction] 99 % Pacc 5 Work Phone: [facility] 07-23-2024 12:49-0500 Systolic blood pressure 153 mm[Hg] Pacc 5 Work Phone: [facility] 05-30-2024 15:36-0500 Body height 160 cm Sandra Arcos BUILDINGS AND GROUNDS COORDINATOR Work Phone: [facility] 05-30-2024 15:36-0500 Body mass index (BMI) [Ratio] 38.26 kg/m2 Sandra Arcos BUILDINGS AND GROUNDS COORDINATOR Work Phone: [facility] 05-30-2024 15:36-0500 Body weight 97.98 kg Sandra Brownr BUILDINGS AND GROUNDS COORDINATOR Work Phone: [facility] 05-30-2024 15:36-0500 Diastolic blood pressure 82 mm[Hg] Sandra Brownr BUILDINGS AND GROUNDS COORDINATOR Work Phone: [facility] 05-30-2024 15:36-0500 Systolic blood pressure 138 mm[Hg] Sandra Brownr [employer]ILDINGS AND GROUNDS COORDINATOR Work Phone: [facility] 05-15-2024 10:02-0500 Body height 160 cm Latrell Jack MD Work Phone: [facility] 05-15-2024 10:02-0500 Body mass index (BMI) [Ratio] 38.26 kg/m2 Latrell Jack MD Work Phone: [facility] 05-15-2024 10:02-0500 Body temperature 97.11 [degF] Latrell Jack MD Work Phone: [facility] 05-15-2024 10:02-0500 Body weight 97.98 kg Latrell Jack MD Work Phone: [facility] 05-15-2024 10:02-0500 Diastolic blood pressure 80 mm[Hg] Latrell Jack MD Work Phone: [facility] 05-15-2024 10:02-0500 Heart rate 78 /min Latrell Jack MD Work Phone: [facility] 05-15-2024 10:02-0500 Respiratory rate 22 /min Latrell Jack MD Work Phone: [facility] 05-15-2024 10:02-0500 SaO2% (BldA) [Mass fraction] 97 % Latrell Jack MD Work Phone: [facility] 05-15-2024 10:02-0500 Systolic blood pressure 148 mm[Hg] Latrell Jack MD Work Phone: [facility] 04-29-2024 10:55-0400 Body height 152.4 cm Xavier Boyd MD Work Phone: [facility] 04-29-2024 10:55-0400 Body mass index (BMI) [Ratio] 42.58 kg/m2 Xavier Boyd MD Work Phone: [facility] 04-29-2024 10:55-0400 Body temperature 98.49 [degF] Xavier Boyd MD Work Phone: [facility] 04-29-2024 10:55-0400 Body weight 98.88 kg Xavier Boyd MD Work Phone: [facility] 04-29-2024 10:55-0400 Diastolic blood pressure 65 mm[Hg] Xavier Boyd MD Work Phone: [facility] 04-29-2024 10:55-0400 Heart rate 90 /min Xavier Boyd MD Work Phone: [facility] 04-29-2024 10:55-0400 Systolic blood pressure 144 mm[Hg] Xavier Boyd MD Work Phone: [facility] 03-20-2024 13:23-0400 Diastolic blood pressure 81 mm[Hg] Wilson Sarmini [facility] 03-20-2024 13:23-0400 Heart rate 66 /min Wilson Sarmini [facility] 03-20-2024 13:23-0400 Mean blood pressure 112 mm[Hg] Wilson Sarmini [facility] 03-20-2024 13:23-0400 Respiratory rate 15 /min Wilson Sarmini [facility] 03-20-2024 13:23-0400 SaO2% (BldA) [Mass fraction] 94 % Wilson Sarmini [facility] 03-20-2024 13:23-0400 Systolic blood pressure 173 mm[Hg] Wilson Sarmini [facility] 03-20-2024 13:15-0400 Diastolic blood pressure 78 mm[Hg] Wilson Sarmini [facility] 03-20-2024 13:15-0400 Heart rate 64 /min Wilson Sarmini [facility] 03-20-2024 13:15-0400 Mean blood pressure 105 mm[Hg] Wilson Sarmini [facility] 03-20-2024 13:15-0400 Respiratory rate 13 /min Wilson Sarmini [facility] 03-20-2024 13:15-0400 SaO2% (BldA) [Mass fraction] 96 % Wilson Sarmini [facility] 03-20-2024 13:15-0400 Systolic blood pressure 159 mm[Hg] Wilson Sarmini [facility] 03-20-2024 13:05-0400 Diastolic blood pressure 76 mm[Hg] Wilson Sarmini [facility] 03-20-2024 13:05-0400 Heart rate 64 /min Wilson Sarmini [facility] 03-20-2024 13:05-0400 Mean blood pressure 99 mm[Hg] Wilson Sarmini [facility] 03-20-2024 13:05-0400 Respiratory rate 12 /min Wilson Sarmini [facility] 03-20-2024 13:05-0400 SaO2% (BldA) [Mass fraction] 96 % Wilson Sarmini [facility] 03-20-2024 13:05-0400 Systolic blood pressure 145 mm[Hg] Wilson Sarmini [facility] 03-20-2024 12:58-0400 Body temperature 97.16 [degF] Wilson Sarmini [facility] 03-20-2024 12:50-0400 Respiratory rate 15 /min Wilson Sarmini [facility] 03-20-2024 12:45-0400 Respiratory rate 18 /min Wilson Sarmini [facility] 03-20-2024 11:14-0400 Blood Pressure Location Wilson Sarmini [facility] 03-20-2024 11:14-0400 Body temperature 97.7 [degF] Wilson Sarmini [facility] 03-20-2024 11:14-0400 Respiratory rate 18 /min Wilson Sarmini [facility] 03-07-2024 11:21-0400 Body height 160 cm Diomedes Amilcar DO Work Phone: [facility] 03-07-2024 11:21-0400 Body mass index (BMI) [Ratio] 44.46 kg/m2 Diomedes Amilcar DO Work Phone: [facility] 03-07-2024 11:21-0400 Body weight 113.85 kg Diomedes Amilcar DO Work Phone: [facility] 03-07-2024 11:21-0400 Diastolic blood pressure 88 mm[Hg] Diomedes Amilcar DO Work Phone: [facility] 03-07-2024 11:21-0400 Heart rate 84 /min Diomedes Amilcar DO Work Phone: [facility] 03-07-2024 11:21-0400 SaO2% (BldA) [Mass fraction] 94 % Diomedes Amilcar DO Work Phone: [facility] 03-07-2024 11:21-0400 Systolic blood pressure 146 mm[Hg] Diomedes Amilcar DO Work Phone: [facility] 02-26-2024 09:12-0400 Blood Pressure Location Wilson Sarmini [facility] 02-26-2024 09:12-0400 Diastolic blood pressure 81 mm[Hg] Wilson Sarmini [facility] 02-26-2024 09:12-0400 Heart rate 66 /min Wilson Sarmini [facility] 02-26-2024 09:12-0400 Respiratory rate 16 /min Wilson Sarmini [facility] 02-26-2024 09:12-0400 Systolic blood pressure 131 mm[Hg] Wilson Sarmini [facility] 10-13-2023 09:42-0400 Diastolic blood pressure 80 mm[Hg] Pa NILL [facility] 10-13-2023 09:42-0400 Heart rate 69 /min Pa NILL [facility] 10-13-2023 09:42-0400 Mean blood pressure 102 mm[Hg] Pa NILL [facility] 10-13-2023 09:42-0400 Respiratory rate 15 /min Pa NILL [facility] 10-13-2023 09:42-0400 SaO2% (BldA) [Mass fraction] 97 % Pa NILL [facility] 10-13-2023 09:42-0400 Systolic blood pressure 146 mm[Hg] Pa NILL [facility] 10-13-2023 09:32-0400 Diastolic blood pressure 76 mm[Hg] Pa NILL [facility] 10-13-2023 09:32-0400 Heart rate 67 /min Pa NILL [facility] 10-13-2023 09:32-0400 Mean blood pressure 94 mm[Hg] Pa NILL [facility] 10-13-2023 09:32-0400 Respiratory rate 20 /min Pa NILL [facility] 10-13-2023 09:32-0400 SaO2% (BldA) [Mass fraction] 95 % Pa NILL [facility] 10-13-2023 09:32-0400 Systolic blood pressure 129 mm[Hg] Pa NILL [facility] 10-13-2023 09:27-0400 Diastolic blood pressure 71 mm[Hg] Ap NILL [facility] 10-13-2023 09:27-0400 Heart rate 70 /min Pa NILL [facility] 10-13-2023 09:27-0400 Mean blood pressure 92 mm[Hg] Pa NILL [facility] 10-13-2023 09:27-0400 Respiratory rate 15 /min Pa NILL [facility] 10-13-2023 09:27-0400 SaO2% (BldA) [Mass fraction] 96 % Pa NILL [facility] 10-13-2023 09:27-0400 Systolic blood pressure 134 mm[Hg] Pa PALMERL [facility] 10-13-2023 09:17-0400 Body temperature 97.16 [degF] Pa PALMERL [facility] 10-13-2023 09:10-0400 Respiratory rate 16 /min Pa PALMERL [facility] 10-13-2023 09:05-0400 Respiratory rate 16 /min Pa PALMERL [facility] 10-13-2023 08:03-0400 Body temperature 97.34 [degF] Pa PALMERL [facility] 08-11-2023 09:53-0500 Body height 160 cm Latrell Jack MD Work Phone: [facility] 08-11-2023 09:53-0500 Body mass index (BMI) [Ratio] 40.39 kg/m2 Latrell Jack MD Work Phone: [facility] 08-11-2023 09:53-0500 Body temperature 97.11 [degF] Latrell Jack MD Work Phone: [facility] 08-11-2023 09:53-0500 Body weight 103.42 kg Latrell Jack MD Work Phone: [facility] 08-11-2023 09:53-0500 Diastolic blood pressure 70 mm[Hg] Latrell Jack MD Work Phone: [facility] 08-11-2023 09:53-0500 Heart rate 94 /min Latrell Jack MD Work Phone: [facility] 08-11-2023 09:53-0500 SaO2% (BldA) [Mass fraction] 97 % Latrell Jack MD Work Phone: [facility] 08-11-2023 09:53-0500 Systolic blood pressure 140 mm[Hg] Latrell Jack MD Work Phone: [facility] Encounters Encounter Date Encounter Type Care Provider Facility Start: 12-04-2024 End: 12-04-2024 Office outpatient visit 15 minutes Latrell Jack MD Work Phone: [facility] Comment on above: Degenerative lumbar spinal stenosis (Primary Dx); Chronic obstructive pulmonary disease, unspecified COPD type (CMS/HCC) Start: 12-04-2024 End: 12-04-2024 ambulatory LATRELL JACK Not Available Start: 10-30-2024 End: 10-30-2024 Refill Latrell Jack MD Work Phone: [facility] Comment on above: Primary insomnia; Chronic obstructive pulmonary disease, unspecified COPD type (CMS/HCC) Start: 10-29-2024 End: 10-29-2024 Refill Latrell Jack MD Work Phone: [facility] Comment on above: Chronic obstructive pulmonary disease, unspecified COPD type (CMS/HCC); Primary insomnia Start: 09-26-2024 End: 09-26-2024 ambulatory SANDRA ARCOS Not Available Start: 08-27-2024 End: 08-27-2024 Bamboo flowsheet Latrell Jack MD Work Phone: [facility] Start: 08-27-2024 End: 08-27-2024 Bamboo flowsheet Latrell Jack MD Work Phone: [facility] Start: 08-27-2024 End: 08-27-2024 Clinisync Result Encounter Latrell Jack MD Work Phone: [facility] Unsolicited Start: 08-27-2024 End: 08-27-2024 ambulatory LATRELL JACK Not Available Start: 08-27-2024 End: 08-27-2024 Patient encounter procedure Latrell Jack MD Work Phone: [facility] Work Phone: Start: 08-27-2024 End: 08-27-2024 Postop follow up visit related to original px Latrell Jack MD Work Phone: [facility] Comment on above: Medicare annual well ness visit, subsequent (Primary Dx); Prediabetes; Dyslipidemia ([facility]/HCC); Encounter for long-term (current) use of medications; Essential hypertension, benign ([facility]/HCC); Class 2 severe obesity due to excess calories with serious comorbidity and body mass index (BMI) of 36.0 to 36.9 in adult ([facility]); Chronic obstructive pulmonary disease, unspecified COPD type ([facility]/HCC); 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[facility]) Start: 08-07-2024 End: 08-07-2024 Patient encounter procedure Katarzyna Snyder LOGISTICS VICE PRESIDENT.[employer] Work Phone: General Surgery Comment on above: Postoperative visit (Primary Dx) Start: 08-07-2024 End: 08-07-2024 ambulatory KATARZYNA SNYDER Facility:[facility] Start: 07-31-2024 End: 07-31-2024 Telephone encounter Latrell Jack MD Work Phone: [facility] Start: 07-30-2024 End: 07-30-2024 Refill Latrell Jack MD Work Phone: [facility] Comment on above: Primary insomnia Start: 07-24-2024 End: 07-26-2024 Evaluation and management of inpatient XAVIER BOYD Facility:[facility] Start: 07-23-2024 End: 07-23-2024 ambulatory LATRELL JACK Facility:[facility] Start: 07-23-2024 End: 07-23-2024 Clinisync Result Encounter [...] Anesthesia Start: 07-23-2024 End: 07-23-2024 Anesthesia consultation [facility] [address] Work Phone: Pre Anesthesia Comment [...] Start: 07-23-2024 End: 07-23-2024 Preprocedural examination done [place] [id number] Work Phone: [facility] Work Phone: Start: 07-23-2024 End: 07-23-2024 ambulatory LATRELL JACK Facility:[facility] Start: 07-23-2024 Encounter for other preprocedural examination LATRELL JACK [facility] Start: 06-29-2024 End: 07-15-2024 Telephone encounter Sandra Arcos NP Work Phone: [facility] Start: 06-24-2024 End: 06-24-2024 ambulatory Talat Arguello MD Facility:[facility] Start: 06-13-2024 End: 06-13-2024 Telephone encounter Latrell Jack MD Work Phone: [facility] Comment on above: Medication Question Start: 06-10-2024 End: 06-10-2024 ambulatory Talat Arguello MD [facility] Start: 05-30-2024 End: 05-30-2024 Office outpatient visit 25 minutes Sandra Arcos NP Work Phone: [facility] Comment on above: Memory loss (Primary Dx); Severe episode of recurrent major depressive disorder, 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); Generalized anxiety disorder (CMS/HCC); EDWIN on CPAP; Other chronic pain; Other insomnia Start: 05-30-2024 End: 05-30-2024 ambulatory SANDRA ARCOS Not Available Start: 05-30-2024 End: 05-30-2024 Bamboo flowsheet Sandra Arcos BUILDINGS AND GROUNDS COORDINATOR Work Phone: [facility] Start: 05-30-2024 End: 05-30-2024 Bamboo flowsheet Sandra Arcos BUILDINGS AND GROUNDS COORDINATOR Work Phone: [facility] Start: 05-27-2024 End: 05-27-2024 ambulatory Talat Arguello MD Facility:[facility] Start: 05-15-2024 End: 05-15-2024 Office outpatient visit 25 minutes Latrell Jack MD Work Phone: [facility] Comment on above: Essential hypertensi on, benign [...] 05-06-2024 End: 05-06-2024 ambulatory Talat Arguello MD Facility:[facility] Start: 05-04-2024 End: 05-06-2024 ambulatory Xavier Boyd MD Work Phone: [facility] Comment on above: 07.24.24 Cure (Lap P araesophageal Hernia Repair/EGD 4 hours los 1) Start: 05-04-2024 End: 05-06-2024 Preprocedural examination done Xavier Boyd MD Work Phone: [facility] Start: 04-29-2024 End: 04-29-2024 ambulatory DAFNE SPEARS Facility:[facility] Start: 04-29-2024 End: 04-29-2024 Office outpatient new 45 minutes Xavier Boyd MD Work Phone: General Surgery Comment on above: Paraesophageal herni a (Primary Dx) Start: 04-22-2024 End: 04-22-2024 Telephone encounter Ashlie Calderon MA General Surgery Start: 04-15-2024 End: 04-15-2024 ambulatory Talat Arguello MD Facility:[facility] Start: 04-11-2024 End: 04-11-2024 Patient encounter procedure Mao Morrow PhD Work Phone: [facility] Comment on above: Memory loss (Primary Dx); Word finding difficulty; EDWIN on CPAP; Other insomnia; Other chronic pain; Generalized anxiety disorder (CMS/HCC); Severe episode of recurrent major depressive disorder, 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) Start: 04-11-2024 End: 04-11-2024 ambulatory LATRELL JACK Not Available Start: 03-26-2024 End: 03-26-2024 Patient encounter procedure Mao Morrow PhD Work Phone: [facility] Comment on above: Memory loss (Primary Dx); Word finding difficulty; EDWIN on CPAP; Other insomnia; Other chronic pain; Generalized anxiety disorder (CMS/HCC) Start: 03-26-2024 End: 03-26-2024 ambulatory MAO MORROW Not Available Start: 03-26-2024 End: 03-26-2024 Bamboo flowsheet Mao Morrow PhD Work Phone: [facility] Start: 03-26-2024 End: 03-26-2024 Bamboo flowsheet Mao Morrow PhD Work Phone: [facility] Start: 03-26-2024 End: 03-26-2024 ambulatory Dafne Spears [facility] Start: 03-26-2024 End: 03-26-2024 Patient encounter procedure Danfe Spears [facility] Start: 03-25-2024 End: 03-25-2024 ambulatory DIOMEDES FITZGERALD Not Available Start: 03-20-2024 End: 03-20-2024 ambulatory Dafne Houmini [facility] Start: 03-20-2024 End: 03-20-2024 Patient encounter procedure Dafne Flowersi [facility] Start: 03-07-2024 End: 03-07-2024 Bamboo flowsheet Diomedes Fitzgerald DO Work Phone: [facility] [address] [facility] Start: 03-07-2024 End: 03-07-2024 Bamboo flowsheet Diomedes Fitzgerald DO Work Phone: [facility] [address] [facility] Start: 03-07-2024 End: 03-07-2024 Clinisync Result Encounter Diomedes Fitzgerald DO Work Phone: [facility] External Department Unsolicited Start: 03-07-2024 End: 03-07-2024 Office outpatient visit 40 minutes Diomedes Fitzgerald DO Work Phone: [facility] [address] Comment on above: Memory loss (Primary Dx); 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CMS/HCC); Mild cognitive impairment; EDWIN (obstructive sleep apnea) Start: 03-07-2024 End: 03-07-2024 ambulatory DIOMEDES FITZGERALD Not Available Start: 02-26-2024 End: 02-26-2024 ambulatory Dafne Spears [facility] Start: 02-26-2024 End: 02-26-2024 Patient encounter procedure Dafne Spears [facility] Start: 02-13-2024 ambulatory Pa WEBB Facility:[facility] Start: 02-09-2024 End: 02-09-2024 ambulatory LATRELL JACK Not Available Start: 10-13-2023 End: 10-13-2023 ambulatory Pa WEBB [facility] Start: 10-13-2023 End: 10-13-2023 Patient encounter procedure Pa WEBB [facility] Start: 09-12-2023 End: 09-12-2023 ambulatory Pa WEBB Facility:[facility] Start: 09-05-2023 ambulatory Pa WEBB Facility:[facility] Start: 08-11-2023 Bamboo flowsheet Latrell [...] Encounter for preprocedural laboratory examination MARNIE PEMBERTON [facility] Start: 09-07-2021 End: 09-07-[address] LATRELL JACK Facility:[facility] Start: 09-07-2021 End: 09-07-2021 Encounter for preprocedural laboratory examination DR LATRELL JACK Facility:[facility] Start: 09-03-2021 Encounter for preprocedural cardiovascular examination MARNIE PEMBERTON [facility] Start: 09-02-2021 End: 09-03-[address] LATRELL JACK Facility:[facility] Start: 09-02-2021 End: 09-03-2021 Encounter for preprocedural cardiovascular examination DR LATRELL JACK Facility:[facility] Procedures Date Procedure Procedure Detail Performing Clinician Start: 08-27-2024 ALL CBC WITH AUTO DIFF Latrell Jack MD Work Phone: Start: 07-23-2024 Antibody screen LATRELL JACK Comment on above: Order Comment: Specimen Type: BLOOD SPEC IMEN Ordering Facility: [facility] Address: [address] [place] [address] Performed By: #### 2 4321-2, HSTNT, 05177-5, 2777-1 #### [facility] CLIA [id number] [address] [place] [address] OF [facility] Start: 07-23-2024 [facility] CBC W AUTO DIFF BLD Generic External Data Provider Start: 03-20-2024 Esophagogastroduodenoscopy Dafne george Start: 03-07-2024 ALL FOLIC ACID Diomedes Amilcar DO Work Phone: Start: 03-07-2024 ALL THYROID STIM HORMONE Diomedes Amilcar D O Work Phone: Start: 11-28-2023 Mammography Diomedes Amilcar DO Work Phone: Start: 10-13-2023 Colonoscopy Diomedes Amilcar DO Work Phone: Start: 10-13-2023 Colonoscopy Pa NILEmily Hand tendon repaired Pa WEBB Open reduction of fr acture of ankle with internal fixation Pa NILEmily Repair of meniscus Pa MORALES Tonsillectomy Pa WEBB Plan of Treatment Date Care Activity Detail Author Start: 10-12-2033 Screening for malign ant neoplasm of colon [facility] Start: 07-26-2027 Diabetes Screening Diabetes Screenin [facility] Start: 07-23-2027 Diabetes Screening Diabetes Screenin g [facility] Start: 09-21-2026 RSV Vaccine (1 - 1-d ose 75+ series) RSV Vaccine (1 - 1-dose 75+ series) [facility] Start: 08-07-2025 End: 09-06-2025 CT Chest WO contrast CT CHEST WO IVCON Radiology Routine Postoperative visit Expected: 08/07/2025, Expires: 09/06/2025 [facility] Work Phone: Comment on above: Expected: 08/07/2025 , Expires: 09/06/2025 Start: 02-24-2025 End: 02-24-2025 Patient encounter procedure 02/24/2025 10:30 AM EDT Office Visit [facility] [address] [place] [address] Latrell Jack MD [address] [place] [address] [facility] Start: 02-03-2025 End: 02-03-2025 Patient encounter procedure 02/03/2025 4:00 PM EDT Office Visit [facility] [address] [place] [phone] Diomedes Fitzgerald DO [address] [place] [address] [facility] [place] Start: 12-30-2024 End: 12-30-2024 Patient encounter procedure 12/30/2024 1:00 PM EDT Office Visit [facility] [address] [place] [phone] Diomedes Fitzgerald DO [address] [place] [address] [facility] Start: 11-27-2024 Screening for malign ant neoplasm of breast Mammogram [facility] Start: 09-26-2024 End: 09-26-2024 [facility] Start: 08-27-2024 End: 08-27-2025 Basic metabolic 1998 panel - Serum or Plasma Basic metabolic panel Lab Routine Essential hypertension, benign (CMS/HCC) Expected: 08/27/2024 (Approximate), Expires: 08/27/2025 [facility] Comment on above: Expected: 08/27/2024 (Approximate), Expires: 08/27/2025 Start: 08-27-2024 End: 08-27-2025 CBC W Auto Differential panel - Blood CBC and differential Lab Routine Encounter for long-term (current) use of medications Expected: 08/27/2024 (Approximate), Expires: 08/27/2025 [facility] Comment on above: Expected: 08/27/2024 (Approximate), Expires: 08/27/2025 Start: 08-27-2024 End: 08-27-2025 Hemoglobin A1c/Hemoglobin.total in Blood Hemoglobin A1c Lab Routine Prediabetes Expected: 08/27/2024 (Approximate), Expires: 08/27/2025 [facility] Work Phone: Comment on above: Expected: 08/27/2024 (Approximate), Expires: 08/27/2025 Start: 08-27-2024 End: 08-27-2025 Hepatic function 2000 panel - Serum or Plasma Hepatic function panel Lab Routine Encounter for long-term (current) use of medications Expected: 08/27/2024 (Approximate), Expires: 08/27/2025 [facility] Comment on above: Expected: 08/27/2024 (Approximate), Expires: 08/27/2025 Start: 08-27-2024 End: 08-27-2025 Lipid 1996 panel - Serum or Plasma Lipid panel Lab Routine Dyslipidemia (CMS/HCC) Expected: 08/27/2024 (Approximate), Expires: 08/27/2025 [facility] Comment on above: Expected: 08/27/2024 (Approximate), Expires: 08/27/2025 Start: 08-27-2024 End: 08-27-2025 Thyrotropin [Units/volume] in Serum or Plasma TSH Lab Routine Class 2 severe obesity due to excess calories with serious comorbidity and body mass index (BMI) of 36.0 to 36.9 in adult (CMS/HCC) Expected: 08/27/2024 (Approximate), Expires: 08/27/2025 [facility] Comment on above: Expected: 08/27/2024 (Approximate), Expires: 08/27/2025 Start: 08-16-2024 End: 08-16-2024 Patient encounter procedure 08/16/2024 9:00 AM EST Office Visit [facility] [address] [place] [address] Latrell Jack MD [address] [place] [address] [facility] Start: 07-24-2024 End: 07-24-2024 Admission to same day surgery center 07/24/2024 10:51 AM EST - 07/24/2024 3:42 PM EST Surgery Admitting [address] [place] [address] Xavier Boyd MD [address] [place] [address] LAPAROSCOPIC RPR PARAESOPHAGEAL HERNIA W/O FUNDOPLASTY W/ [...] 07-10-2024 Advance Directive Discussion Advance Directive Discussion [facility] Start: 06-29-2024 End: 10-29-2024 aPTT in Platelet poor plasma by Coagulation assay ACTIVATED PARTIAL THROMBOPLASTIN TIME Lab Routine Preoperative examination Paraesophageal hernia Abnormal coagulation profile Expected: 06/29/2024, Expires: 10/29/2024 [facility] Comment on above: Expected: 06/29/2024 , Expires: 10/29/2024 Start: 06-29-2024 End: 10-29-2024 CBC W Auto Differential panel - Blood COMPLETE BLOOD COUNT AND DIFFERENTIAL Lab Routine Preoperative examination Paraesophageal hernia Expected: 06/29/2024, Expires: 10/29/2024 [facility] Comment on above: Expected: 06/29/2024 , Expires: 10/29/2024 Start: 06-29-2024 End: 10-29-2024 Comprehensive metabolic 2000 panel - Serum or Plasma COMPREHENSIVE METABOLIC PANEL Lab Routine Preoperative examination Paraesophageal hernia Expected: 06/29/2024, Expires: 10/29/2024 [facility] Comment on above: Expected: 06/29/2024 , Expires: 10/29/2024 Start: 06-29-2024 End: 10-29-2024 PT panel - Platelet poor plasma by Coagulation assay PROTHROMBIN TIME Lab Routine Preoperative examination Paraesophageal hernia Abnormal results of liver function studies Expected: 06/29/2024, Expires: 10/29/2024 [facility] Comment on above: Expected: 06/29/2024 , Expires: 10/29/2024 Start: 06-29-2024 End: 10-29-2024 TYPE AND SCREEN,30 DAY TYPE AND SCREEN,30 DAY Blood Bank Routine Preoperative examination Paraesophageal hernia Expected: 06/29/2024, Expires: 10/29/2024 [facility] Comment on above: Expected: 06/29/2024 , Expires: 10/29/2024 Start: 05-30-2024 End: 05-30-2024 Patient encounter procedure [facility] [place] [address] [facility] Comment on above: Arrived Start: 05-15-2024 End: 05-15-2024 Patient encounter procedure 05/15/2024 10:00 AM EST Office Visit [facility] [address] [place] [address] Latrell Jack MD [address] [place] [address] [facility] Start: 04-29-2024 End: 04-29-2024 Patient encounter procedure 04/29/2024 11:00 AM EDT Office Visit General Surgery [address] [address] Xavier Boyd MD [address] [place] [address] Hiatal Hernia General Surgery Comment on above: Hiatal Hernia Start: 04-11-2024 End: 04-11-2024 Patient encounter procedure 04/11/2024 9:00 AM EDT Office Visit [facility] [address] [place] [phone] [facility] Start: 03-26-2024 End: 03-26-2024 Patient encounter procedure 03/26/2024 2:30 PM EDT Office Visit [address] [phone] Mao Morrow, PhD [address] [place], [place] [id number] Arrived [facility] Comment on above: Arrived Start: 03-25-2024 End: 03-25-2024 Professional / ancillary services management 03/25/2024 8:45 AM EDT Ancillary Procedure [facility] [place] [address] [place] [address] [facility] [address] Start: 03-19-2024 End: 03-19-2024 Patient encounter procedure 03/19/2024 2:00 PM EDT Office Visit [facility] [address] [place] [phone] Mao Morrow, PhD [address] [place] [address] [facility] Start: 03-10-2024 Covid-19 Vaccine ( season) Covid-19 Vaccine ( season) [facility] Start: 03-10-2024 Covid-19 Vaccine ( season) Covid-19 Vaccine () [facility] Start: 03-10-2024 Influenza vaccination Influenza Vacc ine (#1) [facility] Start: 03-07-2024 End: 03-07-2025 Cobalamin (Vitamin B12) [Mass/volume] in Serum or Plasma Vitamin B12 Lab Routine Memory loss Expected: 03/07/2024 (Approximate), Expires: 03/07/2025 [facility] Comment on above: Expected: 03/07/2024 (Approximate), Expires: 03/07/2025 Start: 03-07-2024 End: 03-07-2025 EEG awake or drowsy EEG awake or drowsy Neurology Routine Memory loss Expected: 03/07/2024 (Approximate), Expires: 03/07/2025 [facility] Work Phone: Comment on above: Expected: 03/07/2024 (Approximate), Expires: 03/07/2025 Start: 03-07-2024 End: 03-07-2025 Folate [Mass/volume] in Serum or Plasma Folate Lab Routine Memory loss Expected: 03/07/2024 (Approximate), Expires: 03/07/2025 [facility] Comment on above: Expected: 03/07/2024 (Approximate), Expires: 03/07/2025 Start: 03-07-2024 End: 03-07-2025 MR Brain WO contrast MR brain wo contrast Imaging Routine Memory loss Expected: 03/07/2024, Expires: 03/07/2025 [facility] Comment on above: Expected: 03/07/2024 , Expires: 03/07/2025 Start: 03-07-2024 End: 03-07-2025 Thyrotropin [Units/volume] in Serum or Plasma TSH Lab Routine Memory loss Expected: 03/07/2024 (Approximate), Expires: 03/07/2025 [facility] Comment on above: Expected: 03/07/2024 (Approximate), Expires: 03/07/2025 Start: 03-07-2024 End: 03-07-2024 Patient encounter procedure 03/07/2024 11:30 AM EDT Office Visit [facility] [place] [address] [place] [phone] AmilcarFedericoleDO [address] [place] [address] 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CMS/HCC) [facility] Comment on above: 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CMS /HCC) Start: 02-09-2024 End: 02-09-2024 Patient encounter procedure 02/09/2024 9:45 AM EDT Office Visit [facility] [address] [place] [phone] Latrell Jack MD [address] [place] [phone] [facility] Start: 08-11-2023 End: 08-11-2024 Basic metabolic 1998 panel - Serum or Plasma Basic metabolic panel Lab Routine Encounter for long-term (current) use of medications Expected: 08/11/2023 (Approximate), Expires: 08/11/2024 [facility] Comment on above: Expected: 08/11/2023 (Approximate), Expires: 08/11/2024 Start: 08-11-2023 End: 08-11-2024 CBC W Auto Differential panel - Blood CBC and differential Lab Routine Encounter for long-term (current) use of medications Expected: 08/11/2023 (Approximate), Expires: 08/11/2024 [facility] Comment on above: Expected: 08/11/2023 (Approximate), Expires: 08/11/2024 Start: 08-11-2023 End: 08-11-2024 Hemoglobin A1c measurement Hemoglobin A1c Lab Routine Morbid obesity due to excess calories (CMS/HCC) Expected: 08/11/2023 (Approximate), Expires: 08/11/2024 [facility] Work Phone: Comment on above: Expected: 08/11/2023 (Approximate), Expires: 08/11/2024 Start: 08-11-2023 End: 08-11-2024 Hepatic function 2000 panel - Serum or Plasma Hepatic function panel Lab Routine Encounter for long-term (current) use of medications Expected: 08/11/2023 (Approximate), Expires: 08/11/2024 [facility] Comment on above: Expected: 08/11/2023 (Approximate), Expires: 08/11/2024 Start: 08-11-2023 End: 08-11-2024 Lipid 1996 panel - Serum or Plasma Lipid panel Lab Routine Dyslipidemia (CMS/HCC) Expected: 08/11/2023 (Approximate), Expires: 08/11/2024 [facility] Comment on above: Expected: 08/11/2023 (Approximate), Expires: 08/11/2024 Start: 08-11-2023 End: 08-11-2024 Thyrotropin [Units/volume] in Serum or Plasma TSH Lab Routine Morbid obesity due to excess calories (CMS/HCC) Expected: 08/11/2023 (Approximate), Expires: 08/11/2024 [facility] Comment on above: Expected: 08/11/2023 (Approximate), Expires: 08/11/2024 Start: 08-11-2023 End: 08-11-2023 Patient encounter procedure 08/11/2023 9:45 AM EST Office Visit [facility] [address] [place] [address] Latrell Jcak MD [address] [place] [address] Arrived [facility] Comment on above: Arrived Start: 07-10-2023 Advance Directive Discussion Advance Directive Discussion [facility] Start: 03-10-2023 Influenza vaccination Influenza Vacc ine (#1) [facility] Start: 09-21-2016 Screening for osteoporosis Bone Density Screening [facility] Start: 09-21-2001 Shingrix Vaccine (1 of 2) Shingrix Vaccine (1 of 2) [facility] Start: 09-21-1996 Diabetes Screening Diabetes Screenin g [facility] Start: 09-21-1996 Lipid panel Lipid Screening [facility] Start: 09-21-1996 Screening for malign ant neoplasm of colon [facility] Start: 1991 Screening for malign ant neoplasm of breast [facility] Start: 09-21-1981 Zoledronic acid therapy Alpha- 1 Antitrypsin Deficiency Screening [facility] Start: 09-21-1970 Urine microalbumin profile DTaP,Tdap,Td Vaccine (1 - Tdap) [facility] Start: 09-21-1969 Annual PCP Team Staff Veterinarian julio Disease Visit Annual PCP Team Chronic Disease Visit [facility] Start: 09-21-1969 Anxiety Screening Anxiety Screening [facility] Start: 09-21-1969 BP Controlled (<130/80) BP Controlle d (<130/80) [facility] Start: 09-21-1969 Depression Screening Depression Scre ening [facility] Start: 09-21-1969 Hepatitis C screening Hepatitis C Sc reening [facility] Start: 09-21-1969 Spirometry Spirometry [facility] Start: 1950 Medicare Annual Well ness (AWV) Medicare Annual Wellness (AWV) [facility] Start: 1950 Screening for malign ant neoplasm of colon [facility] End: 05-04-2025 ECG COMPLETE ECG COMPLETE ECG Routine Preoperative examination Paraesophageal hernia 1 Occurrences starting 05/06/2024 until 05/04/2025 [facility] Comment on above: 1 Occurrences starti ng 05/06/2024 until 05/04/2025 Laps rpr paraesphgl hrna incl fundplsty w/mesh LAPAROSCOPIC RPR PARAESOPHAGEAL HERNIA W/O FUNDOPLASTY W/ MESH Preoperative examination Paraesophageal hernia [facility] REFER FOR ADMIT INTERVIEW REFER FOR ADMIT INTERVIEW Procedures Routine Preoperative examination Paraesophageal hernia Ordered: 05/06/2024 [facility] Work Phone: Comment on above: Ordered: 05/06/2024 End: 08-23-2025 XR Chest PA and Lateral XR CHEST 2V FRONTAL/LAT Radiology Routine Pre-op evaluation Chronic obstructive pulmonary disease, unspecified COPD type (HCC) CHENEY (dyspnea on exertion) 1 Occurrences starting 07/23/2024 until 08/23/2025 [facility] Work Phone: Comment on above: 1 Occurrences starti ng 07/23/2024 until 08/23/2025 XR Chest PA and Lateral XR CHEST 2V FRONTAL/LAT Radiology Routine Pre-op evaluation Chronic obstructive pulmonary disease, unspecified COPD type (HCC) CHENEY (dyspnea on exertion) 07/23/2024 1:58 PM EST [facility] Immunizations Immunization Date Immunization Notes Care Provider Keren rojas 04-09-2023 influenza virus vacc ine, unspecified formulation [facility] 05-03-2022 SARS-CoV-2 (COVID-19 ) [id number] [facility] 05-03-2022 influenza virus vacc ine, unspecified formulation Latrell Jack MD Work Phone: [facility] 11-25-2021 pneumococcal conjuga te vaccine, 13 valent Diomedes Fitzgerald DO Work Phone: [facility] 04-12-2021 influenza virus vacc ine, unspecified formulation Wilson Sarmini [facility] 04-12-2021 SARS-CoV-2 (COVID-19 ) mRNA BNT-162b2 vax [facility] Comment on above: Result Comment: 2023: [id number] 09-14-2020 SARS-CoV-2 (COVID-19 ) mRNA BNT-162b2 vax [facility] Comment on above: Result Comment: 2023: [id number] 08-27-2020 SARS-CoV-2 (COVID-19 ) mRNA BNT-162b2 vax [facility] Comment on above: Result Comment: 2023: [id number] 06-16-2020 influenza virus vacc ine, unspecified formulation Wilson Sarmini [facility] 05-16-2019 influenza virus vacc ine, unspecified formulation Wilson Sarmini [facility] 05-16-2019 pneumococcal polysaccharide vaccine, 23 valent Wilson Sarmini [facility] 05-12-2018 influenza virus vacc ine, unspecified formulation Wilson Sarmini [facility] 01-31-2018 pneumococcal conjuga te vaccine, 13 valent Wilson Sarmini [facility] 05-10-2016 influenza virus vacc ine, unspecified formulation Wilson Sarmini [facility] 04-16-2015 influenza virus vacc ine, unspecified formulation Wilson Sarmini [facility] Payers Date Payer Category Payer Private Health Insurance [id number] 2016 Medicare [id number] 2016 Unknown 1959 Medicare [id number] 1959 Private Health Insurance [id number] 1950 Unknown [id number] 2.16.84 0.1.034191.3.579.2.593 1951 Unknown [id number] 2.16.84 0.1.676193.3.579.2.593 1951 Unknown [id number] 2.16.84 0.1.806853.3.579.2.593 1951 Unknown [id number] 2.16.84 0.1.636187.3.579.2.593 1951 Unknown [id number] 2.16.84 0.1.706083.3.579.2.593 1951 Unknown [id number] 2.16.84 0.1.554833.3.579.2.593 1951 Unknown [id number] 2.16.84 0.1.192306.3.579.2.593 1951 Unknown [id number] 2.16.8 40.1.180273.3.579.2.727 1951 Unknown [id number] 2.16.8 40.1.923302.3.579.2.727 1951 Unknown [id number] 2.16.8 40.1.841869.3.579.2.727 1951 Unknown [id number] 2.16.8 40.1.883533.3.579.2.727 1951 Unknown [id number] 2.16.8 40.1.685163.3.579.2.727 1951 Unknown [id number] 2.16. 840.1.632375.3.579.2.196 1951 Unknown [id number] 2.16. 840.1.772466.3.579.2.196 1951 Unknown [id number] 2.16. 840.1.661259.3.579.2.196 1951 Unknown [id number] 2.16. 840.1.740756.3.579.2.196 1951 Unknown [id number] 2.16. 840.1.625936.3.579.2.196 1951 Unknown [id number] 2.16.84 0.1.831922.3.579.2.1259 1951 Unknown [id number] 2.16.84 0.1.412242.3.579.2.1259 1951 Unknown [id number] 2.16.84 0.1.559806.3.579.2.1259 1951 Unknown [id number] 2.16.84 0.1.454199.3.579.2.1259 1951 Unknown [id number] 2.16.84 0.1.882121.3.579.2.1259 1951 Unknown [id number] 2.16.84 0.1.522442.3.579.2.1259 1951 Unknown [id number] 2.16.84 0.1.142867.3.579.2.9 1951 Unknown [id number] 2.16.84 0.1.563390.3.579.2.1259 1951 Unknown [id number] 2.16.84 0.1.614571.3.579.2.1259 1951 Unknown [id number] 2.16.84 0.1.637451.3.579.2.1259 Social History Date Type Detail Facility Start: 08-05-2023 End: 05-30-2024 Tobacco smoking status WVIS Ex-smoker [facility] Start: 07-10-1967 End: 01-08-2012 History of tobacco use Current smoker [facility] Start: 07-10-1967 End: 01-08-2012 History of tobacco use Cigarette Smoker [facility] Start: 08-05-2023 End: 02-02-2024 Cigarettes smoked current (pack per day) - Reported 1 [facility] Start: 08-05-2023 End: 02-02-2024 Tobacco use panel [facility] Start: 1950 Sex Assigned At Not on file N S [facility] Start: 08-11-2023 End: 05-30-2024 Tobacco use and exposure Smokeless tobacco non-user [facility] Tobacco smoking status Never [facility] Start: 03-07-2024 End: 12-04-2024 Alcoholic beverage intake Current drinker of alcohol [...] per day [facility] Tobacco smoking stat [facility] Tobacco smoking consumption unknown [facility] Start: 04-23-2024 Gender identity Identifies as female gender (finding) [facility] Start: 07-23-2024 End: 08-07-2024 Alcoholic beverage intake Ex-drinker (finding) [facility] Start: 07-23-2024 Tobacco Comment Age 16 - 60, 1 /2 - 2 PPD, quit while at 1 PPD [facility] How often do you nee d to have someone help you when you read instructions, pamphlets, or other written material from your doctor or pharmacy [SILS] Sometimes [facility] Medical Equipment Procedure Code Equipment Code Equipment Original Text Equipment Identifier Dates [place] Thk1.65mm P tfe 4x.5in Cardiovascular Sterile - [id number] Start: 07-24-2024 Functional Status Date Assessment Result Facility 03-20-2024 Functional Status N/A [facility] 02-26-2024 Functional Status N/A [facility] 10-13-2023 Functional Status N/A [facility] Clinical Notes 09-10-2021 to 12-04-2024 Latrell Jack MD - 12/04/2024 2:25 PM William Jack MD - 12/04/2024 2:24 PM William Jack MD - 12/04/2024 1:30 PM William Jcak MD - 08/27/2024 11:05 AM ESTPatient InstructionsRadiology Note Date & Type Note Facility 12-04-2024 History of Present illness Narrative Associated Problem(s): Degenerative lumbar spinal stenosis Recent flare and increased pain. Treat with prednisone. Use robaxin for spasms and norco PRN. Follow up with pain management next week as scheduled. Associated Problem(s): COPD (chronic obstructive pulmonary disease) ([facility]) SOB stable and continue albuterol nebulized PRN. Script for new machine to patient. Images from the original note were not included. Subjective Patient ID: Shey Boss is a 74 y.o. female who presents for Follow-up (ER F/U). ER follow up from 12/01 for back pain. History of degenerative lumbar spinal stenosis and ablation in May. Did well until recent. Few weeks ago started to increase activity around house and mild pain off and on. 11/30 sitting on toilet and bent down to pick something up. Severe pain in left lower back and radiated up back. No pain into gluteal region or down legs. Constant pain since and worse with sitting, bending, or lifting. Hard to walk or stay active due to pain. Frequent tightness and spasms. Frequent stabbing pain. In ER x-ray normal. Gave toradol and norflex. Sent home with robaxin. Minimal improvement in symptoms. COPD stable and mild SOB with exertion. No cough or sputum. Using albuterol nebulized PRN and helps when needed. Machine no longer works and needs new nebulizer machine. Back Pain This is a new problem. The current episode started in the past 7 days. The problem occurs daily. The problem has been waxing and waning since onset. The pain is present in the sacro-iliac. The quality of the pain is described as shooting. The pain does not radiate. The pain is at a severity of 6/10. The pain is Worse during the day. The symptoms are aggravated by bending, sitting, standing and twisting. Stiffness is present All day. Pertinent negatives include no abdominal pain, chest pain or dysuria. Risk factors include lack of exercise, obesity and sedentary lifestyle. Review of Systems Respiratory: Negative for cough, shortness of breath and wheezing. Cardiovascular: Negative for chest pain and palpitations. Gastrointestinal: Negative for abdominal pain, diarrhea, nausea and vomiting. Genitourinary: Negative for dysuria. Musculoskeletal: Positive for back pain. Objective Physical Exam Constitutional: General: She is [...] Assessment/Plan Problem List Items Addressed This Visit COPD (chronic obstructive pulmonary disease) ([facility]) SOB stable and continue albuterol nebulized PRN. Script for new machine to patient. Degenerative lumbar spinal stenosis - Primary Recent flare and increased pain. Treat with prednisone. Use robaxin for spasms and norco PRN. Follow up with pain management next week as scheduled. Relevant Medications methocarbamol (Robaxin) 750 MG tablet predniSONE (Deltasone) 50 MG tablet HYDROcodone-acetaminophen ([place]) 5-325 MG tablet documented in this encounter [facility] 08-27-2024 History of Present illness Narrative Associated Problem(s): 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CMS/HCC) Follow with neurology. Associated Problem(s): Medicare annual wellness visit, subsequent Due for labs. Discussed proper diet and regular aerobic exercise. Need aerobic exercise 5-6 days a week for 30 minutes at a time. Smaller portions and limit total calories. Colonoscopy every 10 years. Tetanus every 10 years. Advised not to smoke. Discussed daily Aspirin therapy. Associated Problem(s): Essential hypertension, benign ([facility]) BP controlled and monitor PRN. Associated Problem(s): COPD (chronic obstructive pulmonary disease) ([facility]) Symptoms stable and continue spiriva. Use albuterol PRN. Associated Problem(s): Class 2 severe obesity due to excess calories with serious comorbidity and body mass index (BMI) of 36.0 to 36.9 in adult ([facility]) Weight loss indicated. [...] Items Addressed This Visit Essential hypertension, benign ([facility]) BP controlled and monitor PRN. Relevant Orders Basic metabolic panel COPD (chronic obstructive pulmonary disease) ([facility]) Symptoms stable and continue spiriva. Use albuterol PRN. Dyslipidemia ([facility]) Relevant Orders Lipid panel Encounter for long-term (current) use of medications Relevant Orders CBC and differential Hepatic function panel Prediabetes Relevant Orders Hemoglobin A1c Class 2 severe obesity due to excess calories with serious comorbidity and body mass index (BMI) of 36.0 to 36.9 in adult ([facility]) Weight loss indicated. Relevant Orders TSH Medicare annual wellness visit, subsequent - Primary Due for labs. Discussed proper diet and regular aerobic exercise. Need aerobic exercise 5-6 days a week for 30 minutes at a time. Smaller portions and limit total calories. Colonoscopy every 10 years. Tetanus every 10 years. Advised not to smoke. Discussed daily Aspirin therapy. documented in this encounter [facility] 08-07-2024 Note HNO ID: [id number] Author: KATARZYNA SNYDER APRN.SKYLA Service: ? Author Type: Nurse Practitioner Type: Progress Notes Filed: 08/07/2024 15:37 Note Text: [facility] Clinic Date: August [...] completed prior to appointment Katarzyna Snyder, MSN, [employer] [place] August 07, 2024 [facility] 08-07-2024 History of Present illness Narrative [facility] Clinic Date: August [...] completed prior to appointment Katarzyna Snyder, MSN, [employer] [place] August 07, 2024 What is the reason for your visit today? Post op Who is your referring physician? Dr. Snyder Are you having poor oral intake? NO Have you had unintentional weight loss of 15 lbs/7 Kg in the last 3-6 months? NO Bowels: constipated, diarrhea, or regular Wound: clean & dry Temperature: No Drains: No documented in this encounter [facility] 08-07-2024 Note HNO ID: [id number] Author: OLGA LIDIA BLAKE MA Service: ? Author Type: Channel Opener Outsoles Type: Progress Notes Filed: 08/07/2024 15:37 Note Text: What is the reason for your visit today? Post op Who is your referring physician? Dr. Snyder Are you having poor oral intake? NO Have you had unintentional weight loss of 15 lbs/7 Kg in the last 3-6 months? NO Bowels: constipated, diarrhea, or regular Wound: clean AND dry Temperature: No Drains: No [facility] 07-31-2024 Telephone encounter Note Sent to [facility]. [facility] 07-31-2024 Miscellaneous Notes Sent to [facility]. Insurance won't cover the extended release ambien. Patient called and stated that her zolpidem refill was denied. She would like you to call her or the pharmacy. an documented in this encounter [facility] 07-31-2024 Telephone encounter Note Insurance won't cover the extended release ambien. [facility] 07-31-2024 Telephone encounter Note Patient called and stated that her zolpidem refill was denied. She would like you to call her or the pharmacy. an [facility] 07-26-2024 Note HNO ID: [id number] Author: DERREK MARSHALL RN Service: Care Management [...] DATE: July 26, 2024 TIME: 9:22 AM [facility] 07-25-2024 Note HNO ID: [id number] Author: DERREK MARSHALL RN Service: Care Management Author Type: Registered Nurse Type: Care Mgt Initial Assessment Filed: 07/25/2024 14:30 Note Text: CARE MANAGEMENT: ASSESSMENT AND DISCHARGE PLAN SERVICE DATE: July 25, 2024 SERVICE TIME: 2:29 PM PCP: Latrell Jack MD Primary Contact: Extended Emergency Contact Information Primary Emergency Contact: Alexandria Cramer [address]: [address] [place] [address] Relation: Relative Admission Status: Inpatient Insurance Provider: MEDICARE A AND B Discharge Planning requested by: Per Department Practice Potential Transition Plans To Be Determined Advance Directives Current Advance Directive: None Ob/Gyn Attempted to Assist with AD Completion: Yes Action: Education Provided [place] Explained: [place] Given: No Reason Not Given: [...] DATE: July 25, 2024 TIME: 2:29 PM [facility] 07-25-2024 Note HNO ID: [id number] Author: DERREK MARSHALL RN Service: Care Management Author Type: Registered Nurse Type: Care Mgt Progress Note Filed: 07/25/2024 14:28 Note Text: CARE MANAGEMENT: ASSESSMENT AND DISCHARGE PLAN SERVICE DATE: July 25, 2024 SERVICE TIME: 2:28 PM PCP: Latrell Jack MD Primary Contact: Extended Emergency Contact Information Primary Emergency Contact: Alexandria Cramer Address: [address] [place] [address] Relation: Relative Admission Status: Inpatient Insurance Provider: MEDICARE A AND B Discharge Planning requested by: Per Department Practice Potential Transition Plans To Be Determined Advance Directives Current Advance Directive: None Ob/Gyn Attempted to Assist with AD Completion: Yes Action: Education Provided [place] Explained: [place] Given: No Reason Not Given: [...] DATE: July 25, 2024 TIME: 2:27 PM [facility] 07-25-2024 Note HNO ID: [id number] Author: YAN MOSER ? Service: General Surgery [...] Line Duration Peripheral 07/24/24 0900 [facility] Right Hand 20 Gauge <1 day Peripheral 07/24/24 1111 Left Hand 18 Gauge <1 day SURGERY/PROCEDURE: Procedure(s) and Anesthesia Type: * LAPAROSCOPIC RPR PARAESOPHAGEAL HERNIA W/O FUNDOPLASTY W/ MESH - General [facility] 07-24-2024 Note HNO ID: [id number] Author: NENA SEPULVEDA MD Service: General Surgery [...] SERVICE DATE: 07/24/24 SERVICE TIME: 7:09 PM [facility] 07-24-2024 Note HNO ID: [id number] Author: TRIP GRAY RN Service: Nursing Author Type: Registered Nurse Type: Progress Notes Filed: 07/24/2024 18:55 Note Text: [id number] Paged [id number] to notify that patient came up from PACU with a rdz in but no active rdz order. Requesting order to be placed. [facility] 07-24-2024 Note HNO ID: [id number] Author: TRIP GRAY RN Service: Nursing Author Type: Registered Nurse Type: Progress Notes Filed: 07/24/2024 18:25 Note Text: Admission/Transfer Note PATIENT NAME: Shey Boss Patient Location: [place] [id number] Room: [place] [address] Patient admitted from PACU via bed in stable condition. Actions taken: Patient oriented to room, call light function, prescribed activities, Patient rights, and Quiet at night. Patient belongings with patient. This note was completed by: Trip Gray [facility] 07-24-2024 Note HNO ID: [id number] Author: BETTY ALLEN APRN.POUNCER Service: ? Author Type: Nurse Insole Tack Puller Hand Type: Anesthesia Procedure Notes Filed: 07/24/2024 11:23 Note Text: ANESTHESIOLOGY PROCEDURE NOTE Airway General Information Procedure Start Time/Medication Administration: 07/24/2024 11:09 AM Procedure End Time: 07/24/2024 11:09 AM Patient location during procedure: OR Timeout Performed Pre-procedure: timeout performed Consent Obtained: Yes Patient identity confirmed: arm band, care stationary steam engineer and patient Staffing POUNCER: Betty Allen APRN.POUNCER Performed by: POUNCER Indications and Patient Condition Indications for airway management: anesthesia Preoxygenated: yes anesthesia circuit Patient position: reverse Trendelenburg, sniffing and ramp Method: rapid sequence Final Airway Details Final airway type: endotracheal airway Final Endotracheal Airway: ETT Cuffed: yes Successful intubation technique: video laryngoscopy Devices used: Care Thread Endotracheal tube insertion site: oral Blade size: #3 ETT size (mm): 7.0 Measured from: lips Measurement (cm): 21 Placement verified by: capnometry Cormack-Lehane Classification: grade I - full view of glottis Number of attempts at approach: 1 Airway not difficult SIGNATURE: Betty Allen APRN.CRNA PATIENT NAME: Shey Boss DATE: July 24, 2024 TIME: 11:23 AM CSN: [id number] [facility] 07-24-2024 Note HNO ID: [id number] Author: BETTY ALELN APRN.POUNCER Service: ? Author Type: Nurse Insole Tack Puller Hand Type: Anesthesia Procedure Notes Filed: 07/24/2024 11:23 Note Text: ANESTHESIOLOGY PROCEDURE NOTE PIV General Information Procedure Start Time/Medication Administration: 07/24/2024 11:11 AM Procedure End Time: 07/24/2024 11:11 AM Patient Location: OR Staffing POUNCER: Betty Allen APRN.POUNCER Performed by: POUNCER Preparation Sterility Preparation: hand hygiene performed prior to procedure, surgical cap used, mask used, skin prep agent completely dried prior to procedure Site Prep: alcohol Procedure Details Indication: need for IV access Needle Size/Type: 18 gauge angiocath Orientation: Left Location: Hand Imaging Guidance Used: No SIGNATURE: Betty Allen APRN.POUNCER PATIENT NAME: Shey Boss DATE: July 24, 2024 TIME: 11:22 AM CSN: [id number] [facility] 07-24-2024 Note HNO ID: [id number] Author: ABDELRAHMAN HE MD Service: General Surgery Author Type: Resident Type: Plan of Care Filed: 07/24/2024 10:30 Note Text: Patient consented for study? Yes STUDY TITLE: MVP Trial: Mesh Vs Pledgets for repair of paraesophageal hernia repair: a randomized, blinded, parallel group trial IRB NO.: #[id number] UNDERWRITING ASSISTANT: Willard Ramirez MD COORDINATOR/Research Nurse/Paint Spray Tender: Abdelrahman He MD Phone/email: [phone], [email or web address] Consenting was performed in person prior [...] CRITERIA Yes No 1. The patient lacks [place] language fluency or cannot understand the consent form/study procedures [] [x] 2. The patient is [] [x] 3. The patient has a BMI >45 [] [x] 4. The patient has undergone previous hiatal hernia repair [] [x] 5. The patient will undergo paraesophageal hernia repair with a concurrent bariatric procedure to reduce stomach volume [] [x] [facility] 07-23-2024 History of Present illness Narrative Radiology [...] PATIENT PRESENTS WITH AN IMPLANTABLE OR ATTACHED RESIDENTIAL DIRECTOR: No RADIOLOGY DEPARTMENT: General X-ray: Exam(s) Completed: Chest X-Ray PERIPHERAL IV DATA: Not applicable SIGNED BY: RT Liu(Ortega) July 23, 2024 1:59 PM documented in this encounter [facility] 07-23-2024 Note HNO ID: [id number] Author: HUMERA POSEY RT(Ortega) Service: Radiology Author Type: Technologist [...] PATIENT PRESENTS WITH AN IMPLANTABLE OR ATTACHED RESIDENTIAL DIRECTOR: No RADIOLOGY DEPARTMENT: General X-ray: Exam(s) Completed: Chest X-Ray PERIPHERAL IV DATA: Not applicable SIGNED BY: RT Liu(R) July 23, 2024 1:59 PM [facility] 07-23-2024 Instructions Jamil Delacruz PA-C - 07/23/2024 1:27 PM EST Images from the original note were not included. [facility] PATIENT PREOPERATIVE INSTRUCTIONS Dr. Boyd has scheduled you for your procedure at this surgery center: [facility] [place] Scheduling Office: [phone] --[address] [place] [address]. Please read below carefully for your personalized [...] office. If you are currently using a [id number]-[id number] injectable or oral medication for diabetes or [...] Procedures: - YOU MUST HAVE A RESPONSIBLE SITE OPERATIONS MANAGER TAKE YOU HOME. A SHANK SORTER OR DRAFTING ENGINEER CANNOT BE MADE A RESPONSIBLE SITE OPERATIONS MANAGER. - We recommend that a responsible person [...] call the Monday before. Your surgeon s bailer tenders supervisor will tell you what time to call the office. - If you have not reached the departmental bailer tenders supervisor by 5 P.M., call [phone] after 5 P.M. the day before your surgery. Please be aware that emergency situations arise, which may delay or change your surgical time. If this happens, we will notify you as soon as possible and regret any inconvenience. If you already have an Advance Directive, please fax a copy to [phone] or email to for it to be [...] Jamil Delacruz PA-C documented in this encounter [facility] 07-23-2024 History and physical note Images from [...] at the request of Dr. Boyd, Xavier Acharya MD for consultation. My final recommendation will [...] COVID-19 original vaccine, age 12+ yr, monovalent (SafetyTat-BIONTECH - PURPLE TOP) Only the first 3 [...] pain, CHF, congenital heart defect, DVT/PE, recent GA and murmur/valvular heart disease. GI: See HPI. [...] 404 QTC Calculation (Bazett) 423 Calculated P Salter Path 32 Calculated R Salter Path 14 Calculated T Salter Path 54 Impression NORMAL SINUS RHYTHM NORMAL ECG No results found for this or any previous visit (from the past 57303 hour(s)). Instructions Given to Patient: Instructions located in the after visit summary. Patient given verbal and written preop instructions and voices comprehension and compliance. SIGNATURE: Jamil Delacruz PA-C PATIENT NAME: Shey Boss DATE: July 23, 2024 TIME: 1:07 PM PAGER/CONTACT #: [facility] 07-23-2024 History and physical note Images [...] at the request of Dr. Boyd, Xavier Acharya MD for consultation. My final recommendation will be communicated back to the requesting physician by way of shared medical record or letter. Subjective The patient has the following: COVID-19 Immunization Status Overdue - Covid-19 Vaccine () Overdue since 03/10/2024 03/27/2023 Imm Admin: COVID-19 vaccine, age 12+ yr (SafetyTat-BIONTECH COMIRNATY) 05/03/2022 Imm Admin: COVID-19 vaccine, age 12+ yr, bivalent (SafetyTat-BIONTECH) 04/12/2021 Imm Admin: COVID-19 original vaccine, age 12+ yr, monovalent ([email or web address] - PURPLE TOP) Only the first 3 [...] pain, CHF, congenital heart defect, DVT/PE, recent GA and murmur/valvular heart disease. GI: See HPI. [...] 404 QTC Calculation (Bazett) 423 Calculated P Salter Path 32 Calculated R Salter Path 14 Calculated T Salter Path 54 Impression NORMAL SINUS RHYTHM NORMAL ECG No results found for this or any previous visit (from the past 16662 hour(s)). Instructions Given to Patient: Instructions located in the after visit summary. Patient given verbal and written preop instructions and voices comprehension and compliance. SIGNATURE: Jamil Delacruz PA-C PATIENT NAME: Shey Boss DATE: July 23, 2024 TIME: 1:07 PM PAGER/CONTACT #: documented in this encounter [facility] 07-01-2024 Telephone encounter Note Sending this to Dr Jack [facility] 07-01-2024 Miscellaneous Notes Sending this to Dr Jack Did we call Dr. Jack's office and let him know that we took over the Aricept. If not can we please. I do not see it documented. Thank you documented in this encounter [facility] 06-29-2024 Telephone encounter Note Did we call Dr. Jack's office and let him know that we took over the Aricept. If not can we please. I do not see it documented. Thank you [facility] 06-13-2024 Telephone encounter Note Patient would like her Losartan 50 mg and Pantoprazole 40 mg changed to [facility] instead of VALERIA KUAMRI [facility] 06-13-2024 Miscellaneous Notes Patient would like her Losartan 50 mg and Pantoprazole 40 mg changed to [facility] instead of VALERIA KUMARI documented in this encounter [facility] 05-15-2024 History of Present illness Narrative Associated [...] (BMI) of 38.0 to 38.9 in adult ([facility]) Weight loss indicated. [...] Weight loss indicated. documented in this encounter [facility] 04-29-2024 Note HNO ID: [id number] Author: XAVIER BOYD MD Service: ? Author [...] blinded, parallel group trial IRB NO.: #[id number] UNDERWRITING ASSISTANT: Pa Prakash MD COORDINATOR/Research Nurse/Paint Spray Tender: Abdelrahman He MD Phone/email: [phone], [email or web address] Consenting was performed in person prior [...] CRITERIA Yes No 1. The patient lacks [place] language fluency or cannot understand the consent form/study procedures [] [x] 2. The patient is [] [x] 3. The patient has a BMI >45 [] [x] 4. The patient has undergone previous hiatal hernia repair [] [x] 5. The patient will undergo paraesophageal hernia repair with a concurrent bariatric procedure to reduce stomach volume [] [x] [facility] 04-29-2024 History of Present illness Narrative Consultation [...] blinded, parallel group trial IRB NO.: #[id number] UNDERWRITING ASSISTANT: Pa Prakash MD COORDINATOR/Research Nurse/Paint Spray Tender: Abdelrahman He MD Phone/email: [phone], [email or web address] Consenting was performed in person prior [...] CRITERIA Yes No 1. The patient lacks B[place]udian language fluency or cannot understand the consent form/study procedures [] [x] 2. The patient is [] [x] 3. The patient has a BMI >45 [] [x] 4. The patient has undergone previous hiatal hernia repair [] [x] 5. The patient will undergo paraesophageal hernia repair with a concurrent bariatric procedure to reduce stomach volume [] [x] [facility] - HISTORY [...] MD General Surgery documented in this encounter [facility] 04-29-2024 Note HNO ID: [id number] Author: YAN MOSER, ? Service: ? Author Type: Physician Type: Progress Notes Filed: 04/29/2024 12:10 Note Text: [facility] - HISTORY AND PHYSICAL [...] Consents obtained Yan Moser MD General Surgery [facility] 04-29-2024 Nurse Note What is the reason for your visit today? Consult Who is your referring physician? Dafne Spears Are you having poor oral intake? YES Have you had unintentional weight loss of 15 lbs/7 Kg in the last 3-6 months? NO Bowels: soft, more frequent Wound: none Temperature: No Drains: No [facility] 04-29-2024 Nurse Note What is the reason for your visit today? Consult Who is your referring physician? Dafne Spears Are you having poor oral intake? YES Have you had unintentional weight loss of 15 lbs/7 Kg in the last 3-6 months? NO Bowels: soft, more frequent Wound: none Temperature: No Drains: No documented in this encounter [facility] 04-22-2024 Telephone encounter Note Spoke with PT she state no prior surgeries [facility] 04-22-2024 Miscellaneous Notes Spoke with PT she state no prior surgeries documented in this encounter [facility] 04-11-2024 History of Present illness [...] No history of alcohol/substance abuse. Reformed smoker. [place] language [place]ian. Completed high school education as well as some college. Described self as a C student. 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 Motor/Speed of Processing: Left-handed. Signal Processing Engineer strength 31st %ile with left-hand, 18th %ile [...] Learning of a word list 58th %ile (7-1-53-10-12), delayed recall 50th %ile. Recognition discriminability 69th [...] Please contact me with any questions at [phone]. documented in this encounter [facility] 03-27-2024 Note Endoscopic Procedure Report - [...] 1 tab, Oral, Daily Flonase 0.05 mg/inh Mountainair: 2 spray(s), Nasal, Daily, Refill(s) 0, Dry [...] a day (at bedtime) Flonase 0.05 mg/inh Mountainair 2 spray(s), Nasal, Daily losartan 25 mg [...] All Problems HTN (hypertension) / SNOMED CT 7884982722 / Confirmed Chronic obstructive pulmonary disease / SNOMED CT 74294316 / Confirmed Insomnia / SNOMED CT 041558180 / Confirmed Seasonal allergic rhinitis / SNOMED CT 064085487 / Confirmed Dyslipidemia / SNOMED CT 2993691942 / Confirmed BMI 39.0-39.9,adult / SNOMED CT 914168194 / Confirmed Morbid obesity / SNOMED CT 257763596 / Confirmed GERD (gastroesophageal reflux disease) / SNOMED CT 962354580 / Confirmed Hiatal hernia / SNOMED CT 424138765 / Confirmed EDWIN (obstructive sleep apnea) / SNOMED CT 481470194 / Confirmed Lower extremity edema / SNOMED CT 612172204 / Confirmed TIA (transient ischemic attack) / SNOMED CT 553541524 / Confirmed Screening for malignant neoplasm of colon / SNOMED CT 985710684 / Confirmed Dysphagia / SNOMED CT 21616479 / Confirmed Histories Past Medical History: Resolved Hernia (448344993): Resolved. Sleep apnea (025409155): Resolved. Family History: Father Alcoholism Primary malignant neoplasm of lung COPD Mother Cardiac arrest Alzheimer's disease Procedure history: Colonoscopy (586320547) on 10/13/2023 at 73 Years. ORIF - Open reduction of fracture of ankle with internal fixation ([id number]). Meniscal repair (199964199). Tonsillectomy (193982963). Hand tendon repaired (466412998). Social History Social & Psychosocial Habits Alcohol [...] Impression and Plan Impression: DYSPHAGIA Plan: -EGD [facility] Comment on above: Result Comment: mary anne alicia folder Electronically Signed By: Yovanny OLIVO, Dafne Torres\.maikol\Date and Time Signed: 03/20/24 12:47 EDT 03-26-2024 [...] No history of alcohol/substance abuse. Reformed smoker. [place] language [place]ian. Completed high school education as well as some college. Describes itself as a C student. 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 documented in this encounter [facility] 03-20-2024 Hospital Discharge instructions Patient Education 03/20/2024 [...] Follow these instructions at home: Medicines Take npfg-vlv-avvqxok and prescription medicines only as told by [...] or drinks. ?Garlic or onions. ?Spicy foods. ?Kimble fruits. ?Tomato-based foods. ?Fatty or fried foods. [...] provider. Document Revised: 01/09/2023 Document Reviewed: 01/09/2023 [employer] Patient Education 2023 [email or web address] 03/20/2024 13:07:56 Gastritis, Adult, Lrkl-fw-Nnua Gastritis, Adult Gastritis is irritation and swelling [...] Follow these instructions at home: Medicines Take obmh-cmq-srzfwig and prescription medicines only as told by [...] provider. Document Revised: 10/30/2021 Document Reviewed: 10/30/2021 [employer] Patient Education 2023 [email or web address] 03/20/2024 13:07:48 Hiatal Hernia Hiatal Hernia A [...] reduce GERD symptoms. Medicines. These may include: ?Waog-dql-yyomzfs antacids. ?Medicines that make your stomach empty [...] may include: ?Fatty foods, like fried foods. ?Kimble fruits, like oranges or lemon. ?Other foods [...] Do not drink alcohol. General instructions Take efeq-hyq-yzytrax and prescription medicines only as told by [...] provider. Document Revised: 08/23/2022 Document Reviewed: 08/23/2022 [employer] Patient Education 2023 [employer] 03/20/2024 13:07:46 Endoscopy, Care After Procedure [facility] [place] Endoscopy Care After Procedure Please [...] Document Re-Released: 12/18/2006 ExitCare Patient Information 2009 [employer]. Follow Up Care 02/26/2024 09:52:05 With:Yovanny OLIVO, SENAIT Sifuentes, [facility] Address: When: Unknown Comments:Call for any problems. Office will call to schedule follow up appointment [facility] 03-20-2024 Evaluation + Plan note Future Scheduled TestsXR Esophagus 03/20/24 [facility] 03-20-2024 Note Patient Education - Text Endoscopy [...] Document Re-Released: 12/18/2006 ExitCare? Patient Information ?2009 [employer]. Gastroenterology Hiatal Hernia A hiatal hernia occurs [...] symptoms. ? Medicines. These may include: ? Exib-pxe-drnmexs antacids. ? Medicines that make your stomach [...] Avoid putting pressu (more content not included)... [facility] 03-20-2024 Note Endoscopic Procedure Report - [...] otherwise normal examined duodenum Images Procedure images: Rec1_hd_video___[id number]. jpg Rec1_hd_video____35_581. jpg Rec1_hd_video___25_745. jpg Rec1_hd_video___15_326. jpg Rec1_hd_video___14_566. jpg Rec1_hd_video___01_833. jpg . Post-Procedure Complications: none. Estimated blood [...] surgery referral is indicated, will be ordered [facility] Comment on above: Result Comment: Elec tronically Signed By: Yovanny OLIVO, Dafne Torres\.br\Date and Time Signed: 03/20/24 12:58 EDT Other Comment: Samreen dueñas Attachment - attachment storage system not supported [id number] Can be viewed in source systemMissing Attachment - attachment storage system not supported [id number] Can be viewed in source systemMissing Attachment - attachment storage system not supported [id number] Can be viewed in source systemMissing Attachment - attachment storage system not supported [id number] Can be viewed in source systemMissing Attachment - attachment storage system not supported 2105432 Can be viewed in source systemMissing Attachment - attachment storage system not supported 6765250 Can be viewed in source system 03-20-2024 [...] 1 tab, Oral, Daily Flonase 0.05 mg/inh Mountainair: 2 spray(s), Nasal, Daily, Refill(s) 0, Dry [...] a day (at bedtime) Flonase 0.05 mg/inh Mountainair 2 spray(s), Nasal, Daily losartan 25 mg [...] All Problems HTN (hypertension) / SNOMED CT 2221118199 / Confirmed Chronic obstructive pulmonary disease / SNOMED CT 56153063 / Confirmed Insomnia / SNOMED CT 188592698 / Confirmed Seasonal allergic rhinitis / SNOMED CT 721450782 / Confirmed Dyslipidemia / SNOMED CT 9533120785 / Confirmed BMI 39.0-39.9,adult / SNOMED CT 947829001 / Confirmed Morbid obesity / SNOMED CT 751398000 / Confirmed GERD (gastroesophageal reflux disease) / SNOMED CT 884494946 / Confirmed Hiatal hernia / SNOMED CT 660780076 / Confirmed EDWIN (obstructive sleep apnea) / SNOMED CT 455887771 / Confirmed Lower extremity edema / SNOMED CT 660641225 / Confirmed TIA (transient ischemic attack) / SNOMED CT 713768212 / Confirmed Screening for malignant neoplasm of colon / SNOMED CT 758583798 / Confirmed Dysphagia / SNOMED CT 89982204 / Confirmed Histories Past Medical History: Resolved Hernia (883968715): Resolved. Sleep apnea (175246554): Resolved. Family History: Father Alcoholism Primary malignant neoplasm of lung COPD Mother Cardiac arrest Alzheimer's disease Procedure history: Colonoscopy (348935318) on 10/13/2023 at 73 Years. ORIF - Open reduction of fracture of ankle with internal fixation (670126395924762). Meniscal repair (769127355). Tonsillectomy (429389158). Hand tendon repaired (772581290). Social History Social & Psychosocial Habits Alcohol [...] Impression and Plan Impression: DYSPHAGIA Plan: -EGD [facility] Comment on above: Result Comment: Elec [...] Parkinsonism Sibling Alzheimer's disease Father's Sister Katty Kavya Social History Tobacco Use Smoking status: Former [...] was counseled on the risks of stroke, GA, and sudden with EDWIN, along with the [...] Return to clinic: documented in this encounter [facility] 10-16-2023 Note [id number] [facility] 10-13-2023 Evaluation + Plan note Extrac clarke from: Title:ANES Post-operative Note - General Author: Shaji Bethea Jr., DO Date:10/13/23 Plan Transfer/Discharge: Transfer/Discharge Discharge when meets criteria ( From PACU to Ambulatory Surgery Unit, and To home ). Extracted from: Title:ANES Pre-operative Note - Endo Author:Shaji Mendoza Jr., DO Date:10/13/23 Plan [place] Society of Anesthesiologists (ASA) physical status classification: Class III. Anesthetic Preoperative Plan: Anesthesia General, and -TIVA. [facility]04-05-2024 Hospital Discharge instructions Patient Education 10/13/2023 09:31:42 Colonoscopy, Care After Surgery Salam (CUSTOM) Colonoscopy Care After Surgery Please read the instructions outlined below and refer to this sheet in the next few weeks. These discharge instructions provide you with general information on caring for yourself [facility] Your doctor may also give you specific [...] Up Care 09/12/2023 10:17:58 With:Pa WEBB Address: [address] [place] [address], [facility] [address] [address] Business (1) When: only if needed [facility]04-05-2024 NotePatient: SHEY BOSS Age: 73 years Sex: Female : 1950 Associated Diagnoses: None Author: Pa WEBB MD Subjective no changes to H & PFRegency Hospital Cleveland EastComment on above:Result Comment: Electronically Signed By: Pa WEBB MD\.br\Date and Time Signed: 10/13/23 09:45 [id number] NoteChief Complaint consultation for colonoscopy HPI Staff [...] a day (at bedtime) Flonase 0.05 mg/inh Mountainair, 2 spray(s), Nasal, Daily losartan 25 mg [...] Alcoholism: Father. Alzheimer's di (more content not included)...[facility]Result Comment: Electronically Signed By: TRACEY OLIVO, Pa Lynn\Date and Time Signed: 09/12/23 10:16 [id number] History of Present illness Narrative* Latrell Jack [...] referral to General Surgery [place] [id number] NoteEXAMINATION: XR CHEST 1 V HISTORY: SHORTNESS [...] Electronically authenticated by: MEHNAZ SANTIAGO Date: 2021-11-02 16:39[facility]03-04-2022 NotePROCEDURE: XR ANKLE RT MIN 3 VIEWS [...] Electronically authenticated by: WILLARD ANAND Date: 2021-09-10 09:02[facility]03-04-2022 NotePROCEDURE: XR ANKLE RT 2V COMPARISON: 03/02/2020. HISTORY: Pain FINDINGS: 35 seconds of fluoroscopy. 5 fluoroscopic images Interval removal of internal fixation hardware. Components of 2 fractured screws across the tibiofibular syndesmosis remain on image #5 IMPRESSION: Removal of lateral fibular plate and screws Electronically authenticated by: WILLARD ANAND Date: 2021-09-10 08:30[facility] Future Appointments Appointment Date:03/20/2024 12:15:00 PM Scheduled Provider: Location:[facility] Services Appointment Type:Surgery FT [place] [...] 40.0-44.9, adult (Z68.41) documented in this encounter [facility]Evaluation [facility]* Diagnosis Memory loss- Primary Word finding difficulty EDWIN on CPAP Other insomnia Other chronic pain Generalized anxiety disorder (CMS/HCC) Generalized anxiety disorder Severe episode of recurrent major depressive disorder, 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) documented in this encounter [facility]Evaluation note* Diagnosis Paraesophageal hernia- Primary Diaphragmatic hernia without mention of obstruction or gangrene [facility] Diagnosis Preoperative examination- Primary Preoperative examination, unspecified Paraesophageal hernia Diaphragmatic hernia without mention of obstruction or gangrene Abnormal results of liver function studies Nonspecific abnormal results of liver function study Abnormal coagulation profile [facility] Diagnosis Essential hypertension, benign (CMS/HCC)- Primary [...] in adult (CMS/HCC) documented in this encounter [facility]Evaluation note* Diagnosis Essential hypertension, benign (CMS/HCC)- [...] (BMI) of 38.0 to 38.9 in adult ([facility]) Essential hypertension, benign (CMS/HCC) Essential hypertension, benign Hiatal hernia with gastroesophageal reflux disease without esophagitis documented in this encounter [facility] note* Diagnosis Memory loss- Primary Word finding difficulty EDWIN on CPAP Other insomnia Other chronic pain Generalized anxiety disorder ([facility]) Generalized anxiety disorder documented in this encounter [...] smoker -CXR pending documented in this encounter [facility] note* Diagnosis Pre-op evaluation- Primary Preoperative examination, [...] and respiratory abnormality documented in this encounter [facility] note* Diagnosis Essential hypertension, benign (CMS/HCC)- Primary [...] or maintaining sleep documented in this encounter [facility]* Diagnosis Essential hypertension, benign (CMS/HCC)- [...] 38.0 to 38.9 in adult (CMS/HCC) Primary insomnia- Primary Persistent disorder of initiating or maintaining sleep [facility] Pre-op evaluation- Primary Preoperative examination, [...] aftercare following surgery [facility] Essential hypertension, benign [...] (BMI) of 38.0 to 38.9 in adult ([facility]) Medicare annual wellness visit, subsequent- Primary Prediabetes Other abnormal glucose Dyslipidemia ([facility]) Other and unspecified hyperlipidemia Encounter for long-term (current) use of medications Encounter for long-term (current) use of other medications Essential hypertension, benign ([facility]) Essential hypertension, benign Class 2 severe obesity due to excess calories with serious comorbidity and body mass index (BMI) of 36.0 to 36.9 in adult ([facility]) Chronic obstructive pulmonary disease, unspecified COPD type ([facility]) 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[facility]) Senile dementia, uncomplicated documented in this encounter [facility]* Diagnosis Essential hypertension, benign ([facility])- Primary Essential hypertension, benign Chronic obstructive pulmonary disease, unspecified COPD type ([facility]) Primary insomnia Persistent disorder of initiating or maintaining sleep Primary osteoarthritis of both knees Hiatal hernia with gastroesophageal reflux disease without esophagitis Seasonal allergic rhinitis due to pollen Screening for colon cancer Special screening for malignant neoplasms, colon Morbid obesity due to excess calories ([facility]) Dyslipidemia ([facility]) Other and unspecified hyperlipidemia Encounter for long-term (current) use of medications Encounter for long-term (current) use of other medications Body mass index [BMI] 40.0-44.9, adult (Z68.41) Essential hypertension, benign ([facility]/HCC)- Primary Essential hypertension, benign Dysphagia, unspecified type 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[facility]) Senile dementia, uncomplicated Chronic obstructive pulmonary disease, unspecified COPD type ([facility]) Hiatal hernia with gastroesophageal reflux disease without esophagitis Primary osteoarthritis of both knees Primary insomnia Persistent disorder of initiating or maintaining sleep EDWIN (obstructive sleep apnea) Obstructive sleep apnea (adult) (pediatric) Essential hypertension, benign ([facility]/HCC)- Primary Essential hypertension, benign Chronic obstructive pulmonary disease, unspecified COPD type ([facility]/HCC) Hiatal hernia with gastroesophageal reflux disease without esophagitis EDWIN (obstructive sleep apnea) Obstructive sleep apnea (adult) (pediatric) Primary osteoarthritis of both knees Primary insomnia Persistent disorder of initiating or maintaining sleep Class 2 severe obesity due to excess calories with serious comorbidity and body mass index (BMI) of 38.0 to 38.9 in adult ([facility]) Medicare annual wellness visit, subsequent- Primary Prediabetes Other abnormal glucose Dyslipidemia ([facility]) Other and unspecified hyperlipidemia Encounter for long-term (current) use of medications Encounter for long-term (current) use of other medications Essential hypertension, benign ([facility]) Essential hypertension, benign Class 2 severe obesity due to excess calories with serious comorbidity and body mass index (BMI) of 36.0 to 36.9 in adult ([facility]) Chronic obstructive pulmonary disease, unspecified COPD type ([facility]) 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[facility]) Senile dementia, uncomplicated Chronic obstructive pulmonary disease, unspecified COPD type ([facility]) Primary insomnia Persistent disorder of initiating or maintaining sleep documented in this encounter [facility]* Diagnosis Essential hypertension, benign ([facility])- Primary Essential hypertension, benign Chronic obstructive pulmonary disease, unspecified COPD type ([facility]) Primary insomnia Persistent disorder of initiating or maintaining sleep Primary osteoarthritis of both knees Hiatal hernia with gastroesophageal reflux disease without esophagitis Seasonal allergic rhinitis due to pollen Screening for colon cancer Special screening for malignant neoplasms, colon Morbid obesity due to excess calories ([facility]) Dyslipidemia ([facility]) Other and unspecified hyperlipidemia Encounter for long-term (current) use of medications Encounter for long-term (current) use of other medications Body mass index [BMI] 40.0-44.9, adult (Z68.41) Essential hypertension, benign ([facility]/HCC)- Primary Essential hypertension, benign Dysphagia, unspecified type 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[facility]) Senile dementia, uncomplicated Chronic obstructive pulmonary disease, unspecified COPD type ([facility]/HCC) Hiatal hernia with gastroesophageal reflux disease without esophagitis Primary osteoarthritis of both knees Primary insomnia Persistent disorder of initiating or maintaining sleep EDWIN (obstructive sleep apnea) Obstructive sleep apnea (adult) (pediatric) Essential hypertension, benign ([facility]/HCC)- Primary Essential hypertension, benign Chronic obstructive pulmonary disease, unspecified COPD type ([facility]/HCC) Hiatal hernia with gastroesophageal reflux disease without esophagitis EDWIN (obstructive sleep apnea) Obstructive sleep apnea (adult) (pediatric) Primary osteoarthritis of both knees Primary insomnia Persistent disorder of initiating or maintaining sleep Class 2 severe obesity due to excess calories with serious comorbidity and body mass index (BMI) of 38.0 to 38.9 in adult [place] annual wellness visit, subsequent- Primary Prediabetes Other abnormal glucose Dyslipidemia ([facility]) Other and unspecified hyperlipidemia Encounter for long-term (current) use of medications Encounter for long-term (current) use of other medications Essential hypertension, benign ([facility]) Essential hypertension, benign Class 2 severe obesity due to excess calories with serious comorbidity and body mass index (BMI) of 36.0 to 36.9 in adult ([facility]) Chronic obstructive pulmonary disease, unspecified COPD type ([facility]) 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[facility]) Senile dementia, uncomplicated Primary insomnia Persistent disorder of initiating or maintaining sleep Chronic obstructive pulmonary disease, unspecified COPD type ([facility]) documented in this encounter [facility]* Diagnosis Essential hypertension, benign ([facility])- Primary Essential hypertension, benign Chronic obstructive pulmonary disease, unspecified COPD type ([facility]) Primary insomnia Persistent disorder of initiating or maintaining sleep Primary osteoarthritis of both knees Hiatal hernia with gastroesophageal reflux disease without esophagitis Seasonal allergic rhinitis due to pollen Screening for colon cancer Special screening for malignant neoplasms, colon Morbid obesity due to excess calories ([facility]) Dyslipidemia ([facility]) Other and unspecified hyperlipidemia Encounter for long-term (current) use of medications Encounter for long-term (current) use of other medications Body mass index [BMI] 40.0-44.9, adult (Z68.41) Essential hypertension, benign ([facility])- Primary Essential hypertension, benign Dysphagia, unspecified type 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[facility]) Senile dementia, uncomplicated Chronic obstructive pulmonary disease, unspecified COPD type ([facility]) Hiatal hernia with gastroesophageal reflux disease without esophagitis Primary osteoarthritis of both knees Primary insomnia Persistent disorder of initiating or maintaining sleep EDWIN (obstructive sleep apnea) Obstructive sleep apnea (adult) (pediatric) Essential hypertension, benign ([facility])- Primary Essential hypertension, benign Chronic obstructive pulmonary disease, unspecified COPD type ([facility]/HCC) Hiatal hernia with gastroesophageal reflux disease without esophagitis EDWIN (obstructive sleep apnea) Obstructive sleep apnea (adult) (pediatric) Primary osteoarthritis of both knees Primary insomnia Persistent disorder of initiating or maintaining sleep Class 2 severe obesity due to excess calories with serious comorbidity and body mass index (BMI) of 38.0 to 38.9 in adult [place] [place] visit, subsequent- Primary Prediabetes Other abnormal glucose Dyslipidemia ([facility]/HCC) Other and unspecified hyperlipidemia Encounter for long-term (current) use of medications Encounter for long-term (current) use of other medications Essential hypertension, benign ([facility]/HCC) Essential hypertension, benign Class 2 severe obesity due to excess calories with serious comorbidity and body mass index (BMI) of 36.0 to 36.9 in adult ([facility]) Chronic obstructive pulmonary disease, unspecified COPD type ([facility]/HCC) 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[facility]) Senile dementia, uncomplicated Degenerative lumbar spinal stenosis- Primary Spinal stenosis of lumbar region Chronic obstructive pulmonary disease, unspecified COPD type ([facility]) documented in this encounter [facility] N[facility] No data available for this section [facility] No data available for this section [facility] Progress note No data available for this section [facility] (narrative)* Consultation (Routine) - Pending Review Specialty Diagnoses / Procedures Referred By Joan junior Referred To Contact General Surgery Diagnoses Screening for colon cancer Procedures IA OFFICE/OUTPATIENT NEW HIGH MDM 60 MINUTES Latrell Jack MD [address] [place] [address] Pa Webb MD [address] [place] [address] Referral ID Status Reason Start Date Expiration Date Visits Requested Visits Authorized [id number] Pending Review Specialty Services Required 08/11/2023 02/07/2024 [...] Records Found Hospital Course Note [facility] SURGERY Clinical Discharge Summary PERSON INFORMATION Name SHEY BOSS Age 68 Years 52 Sex FEMALE Language Bermudian PCP LATRELL JACK Marital Status Single Med Service Ambulatory Surgery Acct# Arrival 02/04/19 11:44:00 Visit Reason SURGERY - RELEASE TRIGGER FINGER LEFT RING FINGER AND E/O CYST LEFT RING FINGER Acuity LOS 012 05:38 Address: [address] [place] [address] Comment: PROVIDER INFORMATION VITALS INFORMATION Vital Sign [...] Referred By Joan junior Referred To Contact CT IMAGING Diagnoses Postoperative visit Procedures CT CHEST WO IVCON DIAGNOSTIC COMPUTED TOMOGRAPHY THORAX W/O CNTRST Katarzyna Snyder, LOGISTICS VICE PRESIDENT.[employer] [address] [place] [address] [place] [address] Referral ID Status Reason Start Date Expiration Date Visits Requested Visits Authorized [id number] New Request Auto-Generat ed Referral 08/07/2025 09/06/2025 1 1 Specialty Diagnoses / Procedures Referred By Joan junior Referred To Contact Radiology Diagnoses Memory loss Procedures MR brain wo contrast Diomedes Fitzgerald DO [address] [place] [address] Referral ID Status Reason Start Date Expiration Date V isits Requested Visits Authorized [id number] Pending Review 03/07/2024 09/03/2024 1 1 Specialty Diagnoses / Procedures Referred By Joan t Referred To Contact Diagnoses Preoperative examination Paraesophageal hernia Procedures REFER TO [facility] - PREOPERATIVE OPTIMIZATION OFFICE/OUTPATIENT NEW HIGH MDM 60 MINUTES Katarzyna Carter APRN.[employer] [address] [place] [address] Referral ID Status Reason Start Date Expiration Date Visits Requested Visits Authorized [id number] Authorized PCP Requested Referral 4 05/04/2025 1 1 Specialty Diagnoses / Procedures Referred By Contac t Ref[facility] Diagnoses Preoperative examination Paraesophageal hernia Procedures ECG COMPLETE ECG ROUTINE ECG W/LEAST 12 LDS W/I&R Katarzyna Carter, LOGISTICS VICE PRESIDENT.[employer]OVER [address] [place] [address] [facility] [address] [place] [address] Referral ID Status Reason Start Date Expiration Date Visits Requested Visits Authorized [id number] New Request Auto-Generat ed Referral 4 05/04/2025 1 1 Additional Source Comments INFORMATION SOURCE (unrecogn ized section and content) DATE CREATED AUTHOR 02/17/2019 [facility] DATE CREATED AUTHOR AUTHOR'S ORGANIZ ATION 08/03/2022 [facility] DATE CREATED AUTHOR AUTHOR'S ORGANIZ ATION 03/28/2024 [facility] DATE CREATED AUTHOR AUTHOR'S ORGANIZ ATION 03/30/2024 [facility] DATE CREATED AUTHOR AUTHOR'S ORGANIZ ATION 04/04/2024 [facility] DATE CREATED AUTHOR AUTHOR'S ORGANIZ ATION 07/03/2024 [facility] DATE CREATED AUTHOR AUTHOR'S ORGANIZ ATION 08/12/2024 [facility] DATE CREATED AUTHOR AUTHOR'S ORGANIZ ATION 12/07/2024 [facility] dical Specialists EPIC Care Teams (unrecognized sec tion and content) Clerical Dentist Assistant Relationship Specialty Start Date End Date Latrell Jack MD [address] [place] [address] PCP - General Family Medicine 08/05/23 Clerical Dentist Assistant Relationship Specialty Start Date End Date Latrell Jack MD [address] [place] [address] PCP - General Family Medicine 08/05/23 Clerical Dentist Assistant Relationship Specialty Start Date End Date Latrell Jack MD [address] [place] [address] PCP - General Family Medicine 08/05/23 Clerical Dentist Assistant Relationship Specialty Start Date End Date Dafne Spears MD [address] [address] Internal Medicine 04/02/24 Clerical Dentist Assistant Relationship Specialty Start Date End Date Dafne Spears MD [address] [address] Internal Medicine 04/02/24 Clerical Dentist Assistant Relationship Specialty Start Date End Date Dafne Spears MD [address] [address] Internal Medicine 04/02/24 Clerical Dentist Assistant Relationship Specialty Start Date End Date Latrell Jack MD [address] [place] [address] PCP - General Family Medicine 08/05/23 Clerical Dentist Assistant Relationship Specialty Start Date End Date Latrell Jack MD [address] [place] [address] PCP - General Family Medicine 08/05/23 Clerical Dentist Assistant Relationship Specialty Start Date End Date Latrell Jack MD [address] [place] [address] PCP - General Family Medicine 08/05/23 Federico FitzgeraldDO antonette [address] [place] [address] Referring Physician Neurology 05/30/24 Clerical Dentist Assistant Relationship Specialty Start Date End Date Latrell Jack MD [address] [place] [address] PCP - General Family Medicine 08/05/23 Clerical Dentist Assistant Relationship Specialty Start Date End Date Latrell Jack MD [address] [place] [address] PCP - General Family Medicine 08/05/23 Clerical Dentist Assistant Relationship Specialty Start Date End Date Latrell Jack MD [address] [place] [address] PCP - General Family Medicine 08/05/23 Clerical Dentist Assistant Relationship Specialty Start Date End Date Latrell Jack MD [address] [place] [address] PCP - General Family Medicine 08/05/23 Clerical Dentist Assistant Relationship Specialty Start Date End Date Latrell Jack MD [address] [place] [address] PCP - General Family Medicine 08/05/23 Clerical Dentist Assistant Relationship Specialty Start Date End Date Latrell Jack MD [address] [place] [address] PCP - General Family Medicine 08/05/23 Diomedes Fitzgerald DO [address] [place] [address] Referring Physician Neurology 05/30/24 Clerical Dentist Assistant Relationship Specialty Start Date End Date Latrell Jack MD [address] [place] [address] PCP - General Family Medicine 08/05/23 Diomedes Fitzgerald DO [address] [place] [address] Referring Physician Neurology 05/30/24 Clerical Dentist Assistant Relationship Specialty Start Date End Date Latrell Jack MD [address] [place] [address] PCP - General Family Medicine 08/05/23 Diomedes Fitzgerald DO [address] [place] [address] Referring Physician Neurology 05/30/24 Clerical Dentist Assistant Relationship Specialty Start Date End Date Latrell Jack MD [address] [place] [address] PCP - General Family Medicine 07/01/24 Dafne Spears MD [address] [place] [address] [address] Internal Medicine 04/02/24 Clerical Dentist Assistant Relationship Specialty Start Date End Date Latrell Jack MD [address] [place] [address] PCP - General Family Medicine 07/01/24 Dafne Spears MD [address] [address] Internal Medicine 04/02/24 Clerical Dentist Assistant Relationship Specialty Start Date End Date Latrell Jack MD [address] [place] [address] PCP - General Family Medicine 08/05/23 Diomedes Fitzgerald DO [address] [place] [address] Referring Physician Neurology 05/30/24 Clerical Dentist Assistant Relationship Specialty Start Date End Date Latrell Jack MD [address] [place] [address] PCP - General Family Medicine 08/05/23 Diomedes Fitzgerald DO [address] [place] [address] Referring Physician Neurology 05/30/24 Clerical Dentist Assistant Relationship Specialty Start Date End Date Latrell Jack MD [address] [place] [address] PCP - General Family Medicine 07/01/24 Dafne Spears MD [address] [facility] [address] [place] [address] Internal Medicine 04/02/24 Clerical Dentist Assistant Relationship Specialty Start Date End Date Latrell Jack MD [address] [place] [address] PCP - General Family Medicine 08/05/23 Latrell Jack MD [address] [place] [address] PCP - ACO Reach 08/16/24 Diomedes Fitzgerald DO [address] [place] [address] Referring Physician Neurology 05/30/24 Clerical Dentist Assistant Relationship Specialty Start Date End Date Latrell Jack MD [address] [place] [address] PCP - General Family Medicine 08/05/23 Latrell Jack MD [address] [place] [address] PCP - ACO Reach 08/16/24 Diomedes Fitzgerald DO [address] [place] [address] Referring Physician Neurology 05/30/24 Clerical Dentist Assistant Relationship Specialty Start Date End Date Latrell Jack MD [address] [place] [address] PCP - General Family Medicine 08/05/23 Latrell Jack MD [address] [place] [address] PCP - ACO Reach 08/16/24 Diomedes Fitzgerald DO [address] [place] [address] Referring Physician Neurology 05/30/24 Clerical Dentist Assistant Relationship Specialty Start Date End Date Latrell Jack MD [address] [place] [address] PCP - General Family Medicine 08/05/23 Latrell Jack MD [address] [place] [address] PCP - ACO Reach 08/16/24 Diomedes Fitzgerald DO [address] [place] [address] Referring Physician Neurology 05/30/24 Clerical Dentist Assistant Relationship Specialty Start Date End Date Latrell Jack MD [address] [place] [address] PCP - General Family Medicine 08/05/23 Latrell Jack MD [address] [place] [address] PCP - ACO Reach 08/16/24 Diomedes Fitzgerald DO [address] [place] [address] Referring Physician Neurology 05/30/24 Clerical Dentist Assistant Relationship Specialty Start Date End Date Latrell Jack MD [address] [place] [address] PCP - General Family Medicine 08/05/23 Latrell Jack MD [address] [place] [address] PCP - ACO Reach 08/16/24 Diomedes Fitzgerald DO [address] [place] [address] Referring Physician Neurology 05/30/24 Reason for Visit [...] Diagnoses 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CMS/HCC) Other dysphagia Procedures IA [facility] 60 MINUTES Latrell Jack MD [address] [place] [address] Diomedes Fitzgerald DO [address] [place] [address] Referral ID Status Reason Start Date Expiration Date V isits Requested Visits Authorized [id number] Closed Specialty Services Required 02/09/2024 08/07/2024 1 1 Reason Comments Memory Loss Specialty Diagnoses / Procedures Referred By Jona junior Referred To Contact Diagnoses Preoperative examination Paraesophageal hernia Procedures REFER TO [facility] / [facility] - PREOPERATIVE OPTIMIZATION OFFICE/[facility]IENT [facility] 60 MINUTES Kaatrzyna Snyder APRN.[employer]OVER [address] [address] Referral ID Status Reason Start Date Expiration Date V isits Requested Visits Authorized [id number] Closed PCP Requested Referral 05/06/2024 05/04/2025 1 1 Reason Onset Date Comments Med Refill 07/30/2024 Reason Comments Post Op Reason Comments Medicare Annual Wellness Visit Subsequen t wellness Reason Comments Med Refill Reason Onset Date Comments Med Refill 10/30/2024 Reason Comments Follow-up ER F/U Source Comments (unrecognize d section and content) In the event this informatio n is protected by the Federal Confidentiality of Alcohol and Drug Abuse Patient Records regulations: The Federal rules restrict any use of the information to criminally investigate or prosecute any alcohol or drug abuse patient.[facility] the event this information is protected by the Federal Confidentiality of Alcohol and Drug Abuse Patient Records regulations: The Federal rules restrict any use of the information to criminally investigate or prosecute any alcohol or drug abuse patient.[facility] the event this information is protected by the Federal Confidentiality of Alcohol and Drug Abuse Patient Records regulations: The Federal rules restrict any use of the information to criminally investigate or prosecute any alcohol or drug abuse patient.[facility] the event this information is protected by the Federal Confidentiality of Alcohol and Drug Abuse Patient Records regulations: The Federal rules restrict any use of the information to criminally investigate or prosecute any alcohol or drug abuse patient.[facility] the event this information is protected by the Federal Confidentiality of Alcohol and Drug Abuse Patient Records regulations: The Federal rules restrict any use of the information to criminally investigate or prosecute any alcohol or drug abuse patient.[facility] Center[facility] the event this information is protected by the Federal Confidentiality of Alcohol and Drug Abuse Patient Records regulations: The Federal rules restrict any use of the information to criminally investigate or prosecute any alcohol or drug abuse patient.[facility] FOR RECORDS PERTAINING TO PATIENTS [...] BE BASED ON THE PRIMARY CLINICAL RECORDS. [facility]. provides no warranty or guarantee of the accuracy or completeness of information in this document.
--- NOTE | 2024-12-12 09:05 | P.CN_ITS ---
Consult Note: HPI Data of Consult Patient: known to practice within the last 3 years Requesting Physician: Amalia Woodson NP Primary Care Provider: Latrell Mckeon MD Consult Narrative Reason for consult: left hip and left shoulder pain Narrative: Shey Mckoy a pleasant 74 year old female with chronic low back and SIJ pain presents for evaluation. Has noticed increased left shoulder pain, neck pain, and left hip pain over the last 1 month without injury. Reports she bent over to get something and noticed increased left posterior hip pain radiating to left shoulder and UE since. Of note she ran out of [employer] around that time. was evaluated by PCP who updated lumbar xray and prescribed prednisone, robaxin, and norco with benefit per pt. Pain today 6/10 increasing to 10/10 with standing, walking, long periods of stitting, adls, activity. Pain improved with short periods of sitting and riding in the car. denies falls or injury. unable to describe pain, just pain . reports numbness tingling of LUE. cc:: CC: Amalia Woodson NP Review of Systems ROS Status of ROS 10 or more systems reviewed and unremark able except as noted in history and below [facility] Medical History Osteoarthritis ?M19.90 - Unspecified osteoarthritis, unspecified site (ICD-10) Anxiety ?F41.9 - Anxiety disorder, unspecified (ICD-10) Hiatal hernia ?K44.9 - Diaphragmatic hernia without obstruction or gangrene (ICD-10) Sleep apnea ?G47.30 - Sleep apnea, unspecified (ICD-10) COPD (chronic obstructive pulmonary disease) ?J44.9 - Chronic obstructive pulmonary disease, unspecified (ICD-10) High cholesterol ?E78.00 - Pure hypercholesterolemia, unspecified (ICD-10) HTN (hypertension) ?I10 - Essential (primary) hypertension (ICD-10) Surgical History History of ankle surgery ?Z98.890 - Other specified postprocedural states (ICD-10) History of hand surgery ?Z98.890 - Other specified postprocedural states (ICD-10) History of knee replacement ?Z96.659 - Presence of unspecified artificial knee joint (ICD-10) Social History Little interest or pleasure in doing things: not at all Feeling down, depressed, or hopeless: not at all Meds Home Medications and Allergies Home Medications ?Medication ?Instructions ?Recorded ?Confirmed ?Type aspirin 81 mg tablet,delayed 81 mg PO DAILY 04/16/24 0 12/01/24 History release (Adult Aspirin Regimen) atorvastatin 40 mg tablet 40 mg PO DAILY 04/16/2411/08 History calcium carbonate (Calcium 500) 500 mg PO BID 04/16/24 12/01/24 History donepezil 5 mg tablet (Aricept) 5 mg PO DAILY 04/16/24 12/01/24 History famotidine 40 mg tablet 40 mg PO DAILY 04/16/2411/08 History fluticasone propionate 50 2 spray intranasal DAILY PRN 04/16/24 12/01/24 History mcg/actuation nasal allergy symptoms spray,suspension (24 Hour Allergy Relief) losartan 50 mg tablet 50 mg PO DAILY 04/16/2411/08 History pantoprazole 40 mg tablet,delayed 40 mg PO DAILY 04/1612/01/24 History release tiotropium bromide 18 mcg capsule 1 cap inhalation COLTON LY 04/16/24 12/01/24 History with inhalation device (Spiriva with HandiHaler) vitamin E 268 mg (400 unit) capsule 268 mg PO DAILY 12/01/24 History zolpidem 12.5 mg tablet,extended 12.5 mg PO DAILY 03/0212/01/24 History release,multiphase zonisamide 50 mg capsule 100 mg PO BEDTIME 05/29/24 0 12/01/24 History methocarbamol 500 mg tablet 500 mg PO Q8H PRN pain #20 tabs 12/01/24 Rx Allergies Allergy/AdvReac Type Severity Reaction Status Date / Time No Known Drug Allergies Allergy Verified 06/24/24 07:33 Exam Constitutional Documenting provider has reviewed patient's vital signs: yes Common normals: no apparent distress, oriented x3, healthy appearing, alert and well nourished General appearance: cooperative HENMT Common normals: normocephalic, hearing grossly normal bilaterally and moist oral mucous membranes Head and scalp: normocephalic Eye Common normals: PERRL Pupil: PERRL Neck & C-Spine Common normals: full ROM General: normal visual inspection Other: positive spurlings decreased sensation to left C5,6,7 strength 5/5 in BUE positive facet loading left>right Chest Common normals: inspection of chest normal Respiratory Common normals: normal respiratory effort, no retractions and no use of accessory muscles Back & Pelvis Lumbar spine/lower back: pain with ROM, lumbar spinal tenderness and straight leg raise positive left; straight leg raise negative right Sacroiliac joints: SI joint(s) abnormal Other: left sij positive mauro(patricks), gaenslens, thigh thrust, compression test decreased sensation to left L4,5,S1 strength 4/5 in LLE and 5/5 in RLE Extremity Left lower extremity: hip joint Other: increased pain of left hip with internal and external rotation pt unable to complete posterior liftoff and scratch test due to pain and limited ROM of left shoulder, tenderness noted around rotator cuff insertion site and supraspinatus tendon. negative empty can, crossbody adduction. no edema noted. strength intact Neuro Common normals: oriented x3 Sensorium/orientation: alert Psych Common normals: mental status grossly normal, thought process normal, cooperative, affect normal, speech normal and activity/motor behavior normal Speech: normal speech Thought process: normal thought process Results Additional Findings Additional findings: If on a controlled substance or opioids, I have checked an [place]AR[place] report on this patient and there are no aberrancies noted in the prescribing history.??If on a controlled substance or opioid a drug screen was completed and reviewed within the last year, and if there has not been a drug screen completed we ordered one today to monitor higher risk, state monitored pain medication use. As part of providing excellent, safe, comprehensive care, the following was completed at our patient's visit: 1. A medication reconciliation and review to ensure accurate knowledge of current/active medications, including asking our patients to inform us about any ogiz-orc-nqmmurp medications or herbal remedies/nutritional supplements/alternative remedies. 2. A review to specifically ensure our patients have had annual screening for screening for depression, screening for tobacco use, and screening for unhealthy alcohol use. For concerning screenings had a discussion with the patient, provided patient education, and recommended follow-up with primary care provider when appropriate. If patient noted with a risk of falling, they received education on strength, gait, and balance training to prevent future risk of falling. Portions of this note may have been carried over from the previous visit and updated as appropriate. Please note this office utilizes paper charting in addition to the electronic medical record. A list of current medications, vitals, and PMH is available there as the clinical staff outside of myself do not have access to [employer] charting during the clinic day operations. As part of providing quality comprehensive care the current medications, vitals, and PMH were reviewed in the paper chart. Assessment and Plan Assessment and Plan (1) Lumbar stenosis with neurogenic claudication: Assessment and Plan: The patient has had over 3 months of moderate to severe low back pain with functional impairment and inadequate response to conservative care including NSAIDS (unless there are contraindication such as concurrent blood thinners), multiple oral or topical pain medications, and home exercise program/physical therapy.? Patient has completed >6 weeks of guided home exercise program and/or formal physical therapy program without relief of their symptoms.? I have reviewed the imaging of the lumbar spine and no red flags were identified.? The imaging reveals radiographic findings consistent with lumbar stenosis with NC, lumbar radiculopathy, sacroiliitis, ddd The Oswestry Disability Index was completed, and the patient scored a 50%.? The patient noted the following:?? moderate to severe pain impacting ADLs, sitting, standing, walking, sleeping, social life, and travel We discussed the risks and benefits of the procedure with the patient, and we are NOT planning on using sedation as outlined in the guidelines from Medicare unless there is a documented reason that sedation would be strongly recommended.?? ?The procedure will be completed with fluoroscopic guidance.? (2) Lumbar radiculopathy: (3) Sacroiliitis: (4) Lumbar spondylosis: (5) Left hip pain: (6) Left shoulder pain: Assessment and Plan: acute pain (7) Cervical radiculopathy: Assessment and Plan: acute pain Plan 74 year old female with new onset neck, LUE, and left shoulder pain. Advised pt to restart zonegran 100mg HS. defer additional imaging at this time. defer PT at this time in regards to acute on chronic left sided low back and left hip pain I am recommending pt undergo left L4-5 L5-S1 TFESI under fluoroscopy for lumbar stenosis with NC and consider left SIJ injection if needed will update left hip xray to assess severity of OA continue HEP as tolerated continue tylenol and otc nsaids PRN f/u 2 weeks after TFESI
== END 2024-12-12 08:32 | disposition home or self-care (01) ==
PROVIDERS: PCP Family Medicine; Visit Provider Nurse Practitioner
DX: M25.552 Pain in left hip (principal); M48.062 Spinal stenosis, lumbar region with neurogenic claudication; M54.16 Radiculopathy, lumbar region; M46.1 Sacroiliitis, not elsewhere classified; M47.816 Spondylosis without myelopathy or radiculopathy, lumbar region; M25.512 Pain in left shoulder; M54.12 Radiculopathy, cervical region
CPT/HCPCS: 73502; G0463

== ENCOUNTER 2024-12-12 09:19 | Outpatient (OUT) | payer MEDICARE, OTHER, SELFPAY ==
--- NOTE | 2024-12-12 09:27 | XR_ITS ---
The [address] [address] Patient Name: PARTH BOSS MRN: [id number] date: 1950 Sex: F Assigned Patient Location: Current Patient Location: Accession/Order Number: [id number] Exam Date: 12/12/2024 10:32 Report Date: 12/12/2024 10:34 At the request of: WILL ROMERO NP Procedure: XR hip LT min 2V LEFT HIP - 2 views: CLINICAL HISTORY: Left Hip Pain for the past week after patient bent over and felt a pop. COMPARISON: None AP and frog-lateral views were obtained. There is no evidence of fracture or dislocation. The hip joint space is maintained. There is no significant hypertrophy. The SI joint is intact. There are no significant soft tissue abnormalities. XR/XR hip LT min 2V IMPRESSION: NO ACUTE BONY FINDINGS. Impression dictated by: Juliane Narvaez M.D. 12/12/2024 10:34 AM Dictation Location: [place] [address] Electronically authenticated by: [id number] Y Date: 12/12/2024 10:34
== END 2024-12-12 09:20 | disposition home or self-care (01) ==
LOC: RAD 09:21
PROVIDERS: PCP Family Medicine; Visit Provider Nurse Practitioner
DX: M25.552 Pain in left hip (principal)
CPT/HCPCS: 73502

== ENCOUNTER 2024-12-30 07:54 | Day surgery (SDC) | payer MEDICARE, OTHER, SELFPAY ==
[2024-12-30 08:15] VITALS: BP 166/92; PULSE 86; TEMP 36.3; O2SAT 96
[2024-12-30 09:01] VITALS: BP 172/82; PULSE 72; O2SAT 94
[2024-12-30 09:02] VITALS: BP 203/91; PULSE 74; O2SAT 94
[2024-12-30] MEDS: BUPIVACAINE HCL 0.25% PF 25 MG/10 ML VIAL INJ (09:05)
[2024-12-30] MEDS: IOHEXOL 240 MG/ML - 10 ML VIAL INJ (09:05)
[2024-12-30] MEDS: 0.9 % SODIUM CHLORIDE 10 ML SYRINGE - SALINE FLUSH INJ (09:05)
[2024-12-30] MEDS: LIDOCAINE HCL 2% 400 MG/20 ML MDV INJ (09:05)
[2024-12-30] MEDS: METHYLPREDNISOLONE ACETATE 80 MG/ML VIAL INJ (09:06)
--- NOTE | 2024-12-30 09:11 | P.ON_ITS ---
Date of procedure: 12/30/24 Pre-op diagnosis: Pain due to lumbar stenosis with neurogenic claudication Procedure: Procedure: Left L4-5, L5-S1 transforaminal epidural steroid injection Medications: Bupivacaine 0.25% 2cc, lidocaine 2% 1cc, depomedrol 80mg The patient was seen and examined in the preoperative holding area.? Informed consent was obtained and placed on the chart.? Patient was brought to the medical procedure unit and placed in the prone position where a timeout was completed verifying the correct patient, procedure site, position, and planned special equipment using sterile aseptic technique.? Under direct fluoroscopic visualization a 25-gauge Quincke tipped spinal needle was advanced to the designated neural foramen where contrast dye was injected to show adequate spread.? The needle was inserted at level left L4-5. There was no evidence of vascular or adverse uptake.? Epidural spread was appreciated.? The above- mentioned injectate was then placed in a 1.5 mL aliquot preceded by negative aspiration.? The needle was removed. The needle was inserted and the procedure repeated at level left L5-S1.? The surgery site was covered.? Patient was taken to the postprocedural recovery area and monitored for an appropriate length of time before found suitable for discharge in the accompaniment of a responsible adult. Anesthesia: Local Surgeon: Talat Arguello Pathology: none sent Condition: stable Disposition: no change
== END 2024-12-30 09:13 | disposition home or self-care (01) ==
LOC: SURGOUT 07:55
PROVIDERS: PCP Family Medicine; Visit Provider Anesthesiology
DX: M54.50 Low back pain, unspecified (principal); M48.062 Spinal stenosis, lumbar region with neurogenic claudication
CPT/HCPCS: 64483; 64484; J0665; J1010; Q9966

== ENCOUNTER 2025-01-09 07:55 | Outpatient (OUT) | payer MEDICARE, OTHER, SELFPAY ==
--- OUTSIDE RECORDS SUMMARY | 2012-08-08 03:45 | XMS_ITS | Continuity of Care Document ---
Author Organization [employer] [facility] Address [address] [place] [address] [place] [address] Phone Care Team Providers Care Crayon Sawyer Name Role Phone Theo Palacios MD Unavailable Unavailable Procedures Procedure Date UPPR GI ENDOSCOPY, DIAGNOSIS OFFICE/OUTPATIENT VISIT, [facility] OFFICE CONSULTATION Advance Directives Directive Yes / No Effective Date File Name No Information Encounters Encounter Description Practice Location Reason(s) For Visit Diagnoses Date Provider Providers Copied on Encounter [facility] [employer] [facility] [employer] [facility], [address] [place] [address], [id number], [place] tel:[phone] [facility] OP No Information Suzanne Venegas. [address] [place] [address], [id number], [place]. tel:[phone] Referring Provider: Theo Izquierdo, [address] [place] [address], [place], [address]. tel:[phone] OFFICE/OUTPATI ENT VISIT, [facility] [employer] [facility], [address] [place] [address] [place], [id number], [place] tel:[phone] [facility] No Information Suzanne Venegas. [address] [place] [address], [id number], [place]. tel:[phone] Referring Provider: Theo Izquierdo, [address] [place] [address] 222, [place], [address]. tel:[phone] OFFICE CONSULTATION [facility] [employer] [facility] [employer] [facility], [address] [place] [address] B, [place], [place], [id number], [place] tel:[phone] [facility] No Information Suzanne Venegas. [address], [place], [place], [id number], [place]. tel:[phone] Referring Provider: Theo Izquierdo, [address], [place], [address]. tel:[phone] Family History Family Member Type Diagnosis Age At Onset No Information Payers Payer name Insurance type Covered alliance party ID Maria Alejandra davis(s) Carla [id number] Social History Type Description Quantity Date Captured Comments Sex Female Smoking Status No Information Chief Complaint And Reason For Visit No Information Reason For Referral Reason For Referral No Information History Of Present Illness Encounter Date Complaint History Of Prese nt Illness No Information Functional Status Date Functional Assessmen t No Information Instructions Date Instruction Additional Infor mation No Information Assessments Type Assessment Date No Information Patient Care Teams Name Effective Dates (start - stop) Status Members No Information
--- OUTSIDE RECORDS SUMMARY | 2024-04-09 05:30 | XMS_ITS ---
Author Organization [facility] in [place] Address [address] [place] [address] Care Team Providers Care Market Research Associate Name Role Phone Latrell Mckeon MD Primary Care Provider Unavailab Theo Rodriguez Unavailable [phone] Results Component Value Reference Range Notes XR Foot RT (3 views) * Reviewed date:07/08/2024 02:33:31 PM Interpretation: Performing Lab: Notes/Report: Reason For Referral Reason right lower limb foreign n Diagnosis 1 Unspecified mononeur opathy of right lower limb (G57.91) Referral Organization [facility] (PODIATRY) Referring Provider First Name Theo Referring Provider Last Name Laura Referring Provider Speciality Podiatry Referred Provider Pain Management, [facility] Referred Provider Specialty Pain Medicin e Referral Priority Routine Reason see attached RX Diagnosis 1 Unspecified mononeur opathy of right lower limb (G57.91) Referral Organization [facility] (PODIATRY) Referring Provider First Name Theo Referring Provider Last Name Laura Referring Provider Speciality Podiatry Referred Provider Specialty Pharmacist Referral Priority Routine REASON FOR VISIT Prev pat. rt foot nerve pain Medications Medication SIG (Take, Route, Frequency, Duration) Notes Start Date End Date Status Spiriva HandiHaler 18 MCG 1 capsule by i nhaling the contents of the capsule using the HandiHaler device Inhalation Once a day Active Aspirin 325 MG 1 tablet Orally Once a day Active Zolpidem Tartrate 10 MG 1 tablet at bedt ele as needed Orally Once a day Active CLA 1000 MG as directed Orally Active DHEA 50 50 MG as directed Orally Active Multi Vitamin - 1 tablet Orally Once a day Active Calcium 600 MG 1 tablet with meals Orally Twice a day Active Vitamin E 100 UNIT as directed Orally Active Vitamin D 25 MCG (1000 UT) 1 tablet Oral ly Once a day Active Baclofen 10 MG 1 tablet as needed O rally Twice a day Active Ambien CR 12.5 MG 1 tablet at bedtime as needed Orally Once a day Active Pantoprazole Sodium 40 MG 1 tablet Orall y Once a day Active Famotidine 40 MG 1 tablet Orally Once a day Active Atorvastatin Calcium 40 MG 1 tablet Oral ly Once a day Active Problems Problem Type SNOMED Code ICD Code Onset Dates Problem Status W/U Status Risk Notes Problem [id number] 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.91) Active confirmed Problem 560580401 Radiculopathy, lumbar region (M54.16) Active confirmed Vital Signs Temperature 96.8 degrees Fahrenheit 04/09/20 24 Heart Rate 79 /min 04/09/2024 Oximetry 98 % 04/09/2024 Encounters Encounter Location Date Provider Diagnosis [facility] (PODIATRY) [address] [place] [address] [place] [address] 04/09/2024 Theo Sanchez Unspecified mononeuropathy of right lower limb G57.91 ; Radiculopathy, lumbar region M54.16 and Right foot pain M79.671 Assessments Encounter Date Diagnosis (ICD Code) Assessment Notes Treatment Notes Treatment Clinical Notes Section Notes 04/09/2024 Unspecified mononeuropathy of right lower limb (ICD-10 - G57.91) Patient has had persistent worsening symptoms over the last 6+ months. She did see Dr. Dawn in the past for pain management but has not seen anybody in several years. Her symptoms are consistent with nerve entrapment/symp tomatic neuropathy. I recommended that she follow-up with Dr. Cheema for pain management and further assessment. I did prescribe Lyrica 75 mg 1 p.o. twice daily which can be adjusted with pain management. I also prescribed a topical compound directed at neuropathy to help her symptoms especially at nighttime. She will follow-up in 3 months no new x-rays are needed 04/09/2024 Radiculopathy, lumbar region (ICD-10 - M54.16) 04/09/2024 Right foot pain (ICD-10 - M79.671) Plan Of Treatment Treatment Notes Assessment Notes Unspecified mononeuropathy o f right lower limb Patient has had persistent worsening symptoms over the last 6+ months. She did see Dr. Dawn in the past for pain management but has not seen anybody in several years. Her symptoms are consistent with nerve entrapment/symptomatic neuropathy. I recommended that she follow-up with Dr. Cheema for pain management and further assessment. I did prescribe Lyrica 75 mg 1 p.o. twice daily which can be adjusted with pain management. I also prescribed a topical compound directed at neuropathy to help her symptoms especially at nighttime. She will follow-up in 3 months no new x-rays are needed Referrals Referral Date Details 04/09/2024 04/09/2024, right lo wer limb pain, [facility] Pain Management 04/09/2024 04/09/2024, see nasrin gunter RX Progress Notes * Adam BOSSOB: 2 (73 yo F)Acc No.[id number]:04/09/2024 Follow Up Patient: Shey MALLOY Provider: Ashly Sanchez DPM, MS :1950 A ge:73 Y S ex:Female Date:04/09/2024 Address:[address] [place], [place] [id number] Pcp:Latrell Mckeon MD Check In:09:26 AM ESTCheck O ut:10:14 AM EST Subjective: * Chief Complaints: * P rev pat. rt foot nerve pain * HPI: G eneral: Patient is on office today for c/o nerve pain in her right foot for 8 months. NKI. She c/o majority of her pain being in her great toe and metatrsal fat pad. She states it can reach 8/10 pain at night. The pain at night is inhibiting her from sleeping. S he describes this pain as her nerves feel aggervated. In office today fully weight bearing in normal shoes. She has not tried anything to alevite her pain. She states she is at a loss and unsure how to fix her pain. Patient did have HWR for the right ankle DOS: 09/10/21. Patient has no c/o of ankle pain today. * Active Problem List M79.671 Right foot pain Modified On:04/09/2024W/U Status:confirmed G57.91 Unspecified mononeur opathy of right lower limb Modified On:04/09/2024W/U Status:confirmed M54.16 Radiculopathy, lumba r region Modified On:04/09/2024W/U Status:confirmed * Medical History: * Surgical History: r ight ankle sx right ankle HWR 2021 * Hospitalization/Major Diagno stic Procedure: N o Hospitalization History. * Family History: F ather: diagnosed with Other malignant neoplasm of unspecified site. M other: diagnosed with Unspecified polyarthropathy or polyarthritis, pelvic region and thigh. * Medications: T akingAmbien CR(Zolpidem Tartrate ER) 12.5 MG Tablet Extended Release 1 tablet at bedtime as needed Orally Once a day Aspirin 325 MG Tablet 1 tablet Orally Once a day Atorvastatin Calcium 40 MG Tablet 1 tablet Orally Once a day Baclofen 10 MG Tablet 1 tablet as needed Orally Twice a day Calcium 600 MG Tablet 1 tablet with meals Orally Twice a day CLA 1000 MG Capsule as directed Orally DHEA 50(Prasterone (DHEA)) 50 MG Capsule as directed Orally Famotidine 40 MG Tablet 1 tablet Orally Once a day Multi Vitamin - Tablet 1 tablet Orally Once a day Pantoprazole Sodium 40 MG Tablet Delayed Release 1 tablet Orally Once a day Spiriva HandiHaler(Tiotropium [place] Monohydrate) 18 MCG Capsule 1 capsule by inhaling the contents of the capsule using the HandiHaler device Inhalation Once a day Vitamin D 25 MCG (1000 UT) Tablet 1 tablet Orally Once a day Vitamin E 100 UNIT Capsule as directed Orally Zolpidem Tartrate 10 MG Tablet 1 tablet at bedtime as needed Orally Once a day Medication List reviewed and reconciled with the patientTaking Ambien CR(Zolpidem Tartrate ER) 12.5 MG Tablet Extended Release 1 tablet at bedtime as needed Orally Once a day Taking Aspirin 325 MG Tablet 1 tablet Orally Once a day Taking Atorvastatin Calcium 40 MG Tablet 1 tablet Orally Once a day Taking Baclofen 10 MG Tablet 1 tablet as needed Orally Twice a day Taking Calcium 600 MG Tablet 1 tablet with meals Orally Twice a day Taking CLA 1000 MG Capsule as directed Orally Taking DHEA 50(Prasterone (DHEA)) 50 MG Capsule as directed Orally Taking Famotidine 40 MG Tablet 1 tablet Orally Once a day Taking Multi Vitamin - Tablet 1 tablet Orally Once a day Taking Pantoprazole Sodium 40 MG Tablet Delayed Release 1 tablet Orally Once a day Taking Spiriva HandiHaler(Tiotropium [place] Monohydrate) 18 MCG Capsule 1 capsule by inhaling the contents of the capsule using the HandiHaler device Inhalation Once a day Taking Vitamin D 25 MCG (1000 UT) Tablet 1 tablet Orally Once a day Taking Vitamin E 100 UNIT Capsule as directed Orally Taking Zolpidem Tartrate 10 MG Tablet 1 tablet at bedtime as needed Orally Once a day Medication List reviewed and reconciled with the patient * Allergies: n o[Allergies Verified] Objective: * Vitals: T emp:96.8F, HR:79/min, Pain scale:61-10, Oxygen sat %:98%. * Examination: P odiatry Examination: SKIN: s kin intact, n o sign of infection. MUSCULOSKELETAL: N o pain to palpationAs I am unable to reproduce the patient's pain, N o gross deformity, S trength equal & symmetric. NEUROLOGICAL: l ight touch sensation intact, n egative tinel's sign. Protective and vibratory sensation are diminished. VASCULAR: P edal pulses palpable, C apillary refill is brisk to toe, M ild bilateral dorsal foot swelling which is equal and symmetric and nonpitting. X -rays obtained reviewed my office today show no evidence of acute trauma or fracture. Postsurgical changes in the tibiotalar joint and ankle. Mild first MPJ arthritis. Assessment: * Assessment: 1. U nspecified mononeuropathy of right lower limb - G57.91 (Primary) 2 . R adiculopathy, lumbar region - M54.16 3 . R ight foot pain - M79.671 Plan: * Treatment: 2. R ight foot pain I maging: XR Foot RT (3 views) * * Procedure Codes: * * Sign off status: Completed Visit Status: C HK (Check Out) true * Provider: Ashly Sanchez DPM, MS Date: Generated for Chandler dueñas/Ofelia/Leanaitting on: 0 01/09/2025 07:58 AM EDT History and Physical Notes * HPI (History of Present Illness) Category Sub-Category Detail Notes Category Not es General Patient is on o ffice today for c/o nerve pain in her right foot for 8 months. NKI. She c/o majority of her pain being in her great toe and metatrsal fat pad. She states it can reach 8/10 pain at night. The pain at night is inhibiting her from sleeping. She describes this pain as her nerves feel aggervated. In office today fully weight bearing in normal shoes. She has not tried anything to alevite her pain. She states she is at a loss and unsure how to fix her pain. Patient did have HWR for the right ankle DOS: 09/10/21. Patient has no c/o of ankle pain today. Examination Category Sub-Category Detail Notes Category Not es Podiatry Examination SKIN: skin intact, no sign of infection X-rays obtained reviewed my office today show no evidence of acute trauma or fracture. Postsurgical changes in the tibiotalar joint and ankle. Mild first MPJ arthritis MUSCULOSKELETAL: No pain to palpation As I am unable to reproduce the patient's pain, No gross deformity, Strength equal & symmetric NEUROLOGICAL: light touch sensatio n intact, negative tinel's sign. Protective and vibratory sensation are diminished VASCULAR: Pedal pulses palpabl e, Capillary refill is brisk to toe, Mild bilateral dorsal foot swelling which is equal and symmetric and nonpitting Consultation Request Notes Referral Date Referring Provider Referred Provider Not es 04/09/2024 Theo Sanchez Pain Management, [facility] ght lower limb pain 04/09/2024 Theo Sanchez , see attach ed RX
--- OUTSIDE RECORDS SUMMARY | 2024-04-09 07:28 | XMS_ITS ---
Author Organization [facility] in [place] Address [address] [place] [address] Care Team Providers Care Welfare Eligibility Interviewer Name Role Phone Latrell Mckeon MD Primary Care Provider Unavailab hTeo Rodriguez [phone] REASON FOR VISIT lyrica rx Medications Medication SIG (Take, Route, Fr equency, Duration) Notes Start Date End Date Status Pregabalin 75 MG 1 capsule Orally twi ce daily for 30 days 04/09/2024 Active Encounters Encounter Location Date Provider Diagnosis [facility] (PODIATRY) [address] [place] [address] [place] [address] 04/09/2024 Teho Sanchez Plan Of Treatment Medication Medication Name Sig Start Date Stop Date Notes Pregabalin 75 MG 1 capsule Orally twice daily for 30 days 04/09/2024 Progress Notes * Adam BOSSOB: (73 yo F)Acc No.[id number]:04/09/2024 Patient: Shey MALLOY :1950 A ge:73 Y S ex:Female Address:[address] [place] [address], [address] * Refills Start Pregabalin Capsule, 75 MG, Orally, 60, 1 capsule, twice daily, 30 days, Refills=0 * true * Date: Generated for Cindyi leana/Fayosvanyg/eTransmitting on: 0 01/09/2025 07:57 AM EDT
--- OUTSIDE RECORDS SUMMARY | 2025-01-09 07:58 | XMS_ITS | Encounter Summary ---
Author Organization [facility] Address [address] [place] [address] Care Team Providers Care Professor Of Genetics Name Role Phone Latrell Mckeon MD Primary Care Provider [phone] Siomara Fitzgerald DO Unavailable Latrell Mckeon MD Unavailable Reason for Visit * Reason Comments Med Refill Encounter Details Date Type Department Care Team ([facility] Contact Info) Description 08/02/2024 Refill [facility] [address] [place] [phone] Latrell Mckeon MD [address] [place] [address] Social History Tobacco Use Types Packs/Day Years Used Date Smoking Tobacco: Former Cigarettes 1.2 70.7 0 07/10/1967 - 01/08/2012 Smokeless Tobacco: Never Alcohol Use Standard Drinks/Week Comments Yes 4 (1 standard drink = 0.6 oz pur e alcohol) Caffeine: 2-3 cups per day B1300 Health Literacy Answer Date Recor ded How often do you need to hav e someone help you when you read instructions, pamphlets, or other written material from your doctor or pharmacy? Sometimes 02/02/2024 Social Connection and Isolat ion Panel [NHANES] Answer Date Recorded In a typical week, how many times do you talk on the phone with family, friends, or neighbors? More than three times a week 02/02/2024 How often do you get togethe r with friends or relatives? Three times a week 02/02/2024 How often do you attend chur ch or confucianism services? Patient declined 02/02/2024 Do you belong to any clubs o r organizations such as anabaptist groups, unions, fraternal or athletic groups, or school groups? Patient declined 02/02/2024 How often do you attend meet ings of the clubs or organizations you belong to? Patient declined 02/02/2024 Are you , , di vorced, , never , or living with a partner? Never 02/02/2024 AUDIT-C Answer Date Recorded Q1: How often do you have a drink containing alc ohol? Monthly or less 03/03/2024 Q2: How many drinks containi ng alcohol do you have on a typical day when you are drinking? 3 or 4 03/03/2024 Q3: How often do you have si x or more drinks on one occasion? Less than monthly 03/03/2024 Overall Financial Resource Strain (CARDIA) Answe r Date Recorded How hard is it for you to pa y for the very basics like food, housing, medical care, and heating? Patient declined 02/02/2024 PHQ-2 Answer Date Recorded Patient Health Questionnaire-2 Score 0 08/11/2023 [facility] - Occupational Stress Questionnaire Answer Date Recorded Do you feel stress - tense, restless, nervous, or anxious, or unable to sleep at night because your mind is troubled all the time - these days? To some extent 02/02/2024 Exercise Vital Sign Answer Date Recorde d On average, how many days pe r week do you engage in moderate to strenuous exercise (like a brisk walk)? Patient declined On average, how many minutes do you engage in exercise at this level? Patient declined 02/02/2024 Hunger Vital Sign Answer Date Recorded Within the past 12 months, y ou worried that your food would run out before you got the money to buy more. Patient declined Within the past 12 months, t he food you bought just didn't last and you didn't have money to get more. Patient declined PRAPARE - Transportation Answer Date Re corded In the past 12 months, has l ack of transportation kept you from medical appointments or from getting medications? No 01/08 In the past 12 months, has l ack of transportation kept you from meetings, work, or from getting things needed for daily living? No 02/02/2024 Housing Stability Vital Sign Answer Parmnider e Recorded In the last 12 months, was t here a time when you were not able to pay the mortgage or rent on time? No 02/02/2024 In the past 12 months, how m any times have you moved where you were living? 0 02/02/2024 At any time in the past 12 m ont, were you homeless or living in a skilled nursing (including now)? No 02/02/2024 Comments Unknown Sex and Gender Information Value Date Recorded Sex Assigned at Not on file Legal Sex Female 7:08 PM EDT Gender Identity Not on file Sexual Orientation Not on file documented as of this encounter Plan of Treatment Upcoming Encounters Date Type Department Care Team (Late st Contact Info) Description 02/24/2025 10:30 AM EDT Office Visit [facility] [address] [place] [address] Latrell Mckeon MD [address] [place] [address] documented as of this encounter Visit Diagnoses Not on filedocumented in this encounter Care Teams Professor Of Genetics Relationship Specialty Start Date End Date Latrell Mckeon MD [address] [place] [phone] PCP - General Family Medicine 08/05/23 Latrell Mckeon MD [address] [place] [phone] PCP - ACO Reach 08/16/24 Siomara Fitzgerald DO [address] [place] [address] Referring Physician Neurology 05/30/24 documented as of this encounter
--- OUTSIDE RECORDS SUMMARY | 2025-01-09 07:58 | XMS_ITS | Encounter Summary ---
Author Organization [facility] Address [address] [place] [address] Care Team Providers Care Feltmaker And Weigher Name Role Phone Latrell Mckeon MD Primary Care Provider [phone] Siomara Fitzgerald DO Unavailable [phone] Latrell Mckeon MD Unavailable Encounter Details Date Type Department Care Team (Late st Contact Info) Description 12/12/2024 Orders Only [facility] [address] [place] [address] Amalia Woodson, PEDRO [address] [place] [address] Social History Tobacco Use Types Packs/Day Years [...] often do you attend chur ch or synagogue services? Patient declined 02/02/2024 Do you belong to any clubs o r organizations such as worship groups, unions, fraternal or athletic groups, or [...] Date Recorded Patient Health Questionnaire-2 Score 0 08/27/2024 [facility] - Occupational Stress Questionnaire Answer Date Recorded [...] No 02/02/2024 Housing Stability Vital Sign Answer Parminder e Recorded In the last 12 months, was t here a time when you were not able to pay the mortgage or rent on time? No 02/02/2024 In the past 12 months, how m any times have you moved where you were living? 0 02/02/2024 At any time in the past 12 m [facility], were you homeless or living in a jail (including now)? No 02/02/2024 Comments Unknown Sex and Gender Information Value Date Recorded Sex Assigned at Not on file Legal Sex Female 7:08 PM EDT Gender Identity Not on file Sexual Orientation Not on file documented as of this encounter Plan of Treatment Upcoming Encounters Date Type Department Care Team (Late st Contact Info) Description 02/24/2025 10:30 AM EDT Office Visit [facility] [address] [place] [address] Latrell Mckeon MD [address] [place] [phone] documented as of this encounter Procedures Procedure Name Priority Date/Time Associated Diagnosis Comments XR HIP 2-3 VIEWS LEFT Routine 12/12/2024 11:07 AM EDT documented in this encounter Results * XR HIP 2-3 VIEWS LEFT (12/12/2024 11:07 AM EDT) Anatomical Region Laterality Modality Radiographic Lani ging Amalia Woodson WELL SERVICES OPERATOR IMG XR PROCEDURES Final Result documented in this encounter Visit Diagnoses Not on filedocumented in this encounter Additional Health Concerns Assessment Noted Time PHQ-9 Depression Total Score: 4 08/27/19 25 10:00 AM EST documented as of this encounter Care Teams Feltmaker And Weigher Relationship Specialty Start Date End Date Latrell Mckeon MD [address] [place] [phone] PCP - General Family Medicine 08/05/23 Latrell Mckeon MD [address] [place] [address] PCP - ACO Reach 08/16/24 Siomara Fitzgerald DO [address] [place] [address] Referring Physician Neurology 05/30/24 documented as of this encounter
--- OUTSIDE RECORDS SUMMARY | 2025-01-09 07:58 | XMS_ITS | Encounter Summary ---
Author Organization [facility] Address [address] [place] [address] Care Team Providers Care Aircraft Structural Repair Mechanic Name Role Phone Latrell Mckeon MD Primary Care Provider [phone] Siomara Fitzgerald DO Unavailable [phone] Latrell Mckeon MD Unavailable Encounter Details Date Type Department Care Team (Late st Contact Info) Description 12/30/2024 Patient Outreach [facility] [address] [place] [phone] [place], FABIANO [address] [place], [place] [id number] Social History Tobacco Use Types Packs/Day Years [...] week 02/02/2024 How often do you attend [facility] or episcopal services? Patient declined 02/02/2024 Do you belong to any clubs o r organizations such as jain groups, unions, fraternal or athletic groups, or [...] Recorded Patient Health Questionnaire-2 Score 0 08/27/2024 [facility] - Occupational Stress [...] any time in the past 12 m [facility], were you homeless or living in a penitentiary (including now)? No 02/02/2024 Comments Unknown Sex and Gender Information Value Date Recorded Sex Assigned at Not on file Legal Sex Female 7:08 PM EDT Gender Identity Not on file Sexual Orientation Not on file documented as of this encounter Progress Notes * FABIANO [place] - 12/30/2024 1:55 PM EDT <December 30, 2024, 13:58 - FABIANO [place]> Called pt for week 2 of 30 day monitoring. States she is doing OK. Her best friend is staying with her this week and she is thankful for that. She completed her intake assessment at [facility] last week and has her first counseling appointment tomorrow. She feels like things are on the right track. Discussed resources to help with home repairs through [facility] program or [facility]. Provided phone numbers for both programs. [employer] appreciation. No other needs at this time. documented in this encounter Plan of Treatment Upcoming Encounters Date Type Department Care Team (Late st Contact Info) Description 02/24/2025 10:30 AM EDT Office Visit [facility] [address] [place] [address] Latrell Mckeon MD [address] [place] [address] documented as of this encounter Visit Diagnoses Diagnosis Moderate episode of recurrent major depressive disorder (HCC)- Primary 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HCC) Senile dementia, uncomplicated documented in this encounter Additional Health Concerns Assessment Noted Time PHQ-9 Depression Total Score: 4 08/27/19 25 10:00 AM EST documented as of this encounter Care Teams Aircraft Structural Repair Mechanic Relationship Specialty Start Date End Date Latrell Mckeon MD [address] [place] [address] PCP - General Family Medicine 08/05/23 Latrell Mckeon MD [address] [place] [address] PCP - ACO Reach 08/16/24 Siomara Fitzgerald DO [address] [place] [address] Referring Physician Neurology 05/30/24 documented as of this encounter
--- OUTSIDE RECORDS SUMMARY | 2025-01-09 07:58 | XMS_ITS | Encounter Summary ---
Author Organization [facility] Address [address] [place] [address] Care Team Providers Care Sales Representative Consultant Name Role Phone Latrell Mckeon MD Primary Care Provider [phone] Siomara Fitzgerald DO Unavailable [phone] Latrell Mckeon MD Unavailable Encounter Details Date Type Department Care Team (Late st Contact Info) Description 07/18/2024 Abstract [facility] [address] [place] [address] Latrell Mckeon MD [address] [place] [address] Social History Tobacco Use Types Packs/Day Years [...] week 02/02/2024 How often do you attend [facility] or sikh services? Patient declined 02/02/2024 Do you belong to any clubs o r organizations such as cheondoism groups, unions, fraternal or athletic groups, or [...] Recorded Patient Health Questionnaire-2 Score 0 08/11/2023 [facility] Occupat ional [facility] - Occupational [...] medical appointments or from getting medications? No 07/2 12/2023 In the past 12 months, has l [...] any time in the past 12 m [facility], were you homeless or living in a assisted (including now)? No 02/02/2024 Comments Unknown Sex and Gender Information Value Date Recorded Sex Assigned at Not on file Legal Sex Female 7:08 PM EDT Gender Identity Not on file Sexual Orientation Not on file documented as of this encounter Plan of Treatment Upcoming Encounters Date Type Department Care Team (Late st Contact Info) Description 02/24/2025 10:30 AM EDT [facility] [address] [place] [address] Latrell Mckeon MD [address] [place] [address] documented as of this encounter Visit Diagnoses Not on filedocumented in this encounter Care Teams Sales Representative Consultant Relationship Specialty Start Date End Date Latrell Mckeon MD [address] [place] [address] PCP - General Family Medicine 08/05/23 Latrell Mckeon MD [address] [place] [address] PCP - ACO Reach 08/16/24 Siomara Fitzgerald DO [address] [place] [address] Referring Physician Neurology 05/30/24 documented as of this encounter
--- OUTSIDE RECORDS SUMMARY | 2025-01-09 07:58 | XMS_ITS | Encounter Summary ---
Author Organization [facility] Address [address] [place] [address] Care Team Providers Care Placement Assistant Name Role Phone Latrell Mckeon MD Primary Care Provider [phone] Siomara Fitzgerald DO Unavailable [phone] Latrell Mckeon MD Unavailable Encounter Details Date Type Department Care Team (Late st Contact Info) Description 07/23/2024 Clinisync Result Encounter [facility] External Department Unsolicited Provider, Generic External Data Social History Tobacco Use Types Packs/Day Years [...] often do you attend chur ch or christian services? Patient declined 02/02/2024 Do you belong to any clubs o r organizations such as jewish groups, unions, fraternal or athletic groups, or [...] Recorded Patient Health Questionnaire-2 Score 0 08/11/2023 [facility] of Occupat ional [facility] - Occupational Stress Questionnaire Answer Date Recorded [...] any time in the past 12 m [facility], were you homeless or living in a intermediate (including now)? No 02/02/2024 Comments Unknown Sex [...] Visit [facility] [address] [place] [address] Latrell Mckeon MD [address] [place] [address] documented as of this encounter Procedures Procedure Name Priority Date/Time Associated Diagnosis Comments XR CHEST 2V FRONTAL/LAT 07/23/2024 1:58 PM EST [facility] CONFIRM BLOOD TYPE Routine 07/23/2024 11:47 AM EST [facility] TYPE AND SCREEN,30 DAY Routine 07/23/2024 11:41 AM EST documented in this encounter Results * XR CHEST 2V FRONTAL/LAT (07/23/2024 1:58 PM EST) Anatomical Region Laterality Modality Other 07/23/2024 1:58 PM EST Narrative 07/24/2024 7:32 AM EST * * *Final Report* * * DATE [...] soft tissues: Unremarkable. IMPRESSION: Large hiatal hernia. Knife Finisher: [facility] Transcribe Date/Time: Jul 24 2024 7:28A Dictated by : JARVIS HUGO MD This examination was interpreted and the report reviewed and electronically signed by: JARVIS HUGO MD on Jul 24 2024 7:30AM EST [id number]^SI^ACN Procedure Note Radiology, Radiologist, MD - 07/24/2024 * * *Final Report* * * DATE [...] soft tissues: Unremarkable. IMPRESSION: Large hiatal hernia. Knife Finisher: [employer] Transcribe Date/Time: Jul 24 2024 7:28A Dictated by : JARVIS HUGO MD This examination was interpreted and the report reviewed and electronically signed by: JARVIS HUGO MD on Jul 24 2024 7:30AM EST [id number]^SI^ACN Generic External Data Provider [employer] Final Result * [facility] CONFIRM BLOOD TYPE (07/23/2024 11:47 AM EST) ABO B [facility] RH Positive [facility] 07/23/2024 11:4 7 AM EST 07/23/2024 11:47 AM EST Narrative CLINISYNC - 07/23/2024 11:46 AM EST Specimen Type: BLOOD SPECIMEN Ordering Facility: [facility] Address: [address] [place] [address] CC MAIN BLOOD BANK CLIA [id number] [address] [place] [address] Generic External Data Provider CLINISYNC F inal Result Performing Organization Address [facility] de Phone Number JARRET [facility] [address] [id number] * [facility] TYPE AND SCREEN,30 DAY (07/23/2024 11:41 AM EST) ABO B [facility] RH Positive [facility] ANTIBODY SCREEN Negative [facility] 07/23/2024 11:4 1 AM EST 07/23/2024 11:42 AM EST Narrative CLINISYNC - 07/23/2024 11:41 AM EST Specimen Type: BLOOD SPECIMEN Ordering Facility: [facility] Address: [address] [place] [address] MAIN BLOOD BANK CLIA [id number] [address] [place] [address] Generic External Data Provider CLINISYNC F inal Result Performing Organization Address [facility] de Phone Number CLINVITALIYNC [facility] [address] [id number] documented in this encounter Visit Diagnoses Not on filedocumented in this encounter Care Teams Placement Assistant Relationship Specialty Start Date End Date Latrell Mckeon MD [address] [place] [address] PCP - General Family Medicine 08/05/23 Latrell Mckeon MD [address] [facility] [place] [address] PCP - ACO Reach 08/16/24 Siomara Fitzgerald DO [address] [place] [address] Referring Physician Neurology 05/30/24 documented as of this encounter
--- OUTSIDE RECORDS SUMMARY | 2025-01-09 07:58 | XMS_ITS | Encounter Summary ---
Author Organization [facility] Address [address] [place] [address] Care Team Providers Care Java Software Architect Name Role Phone Latrell Mckeon MD Primary Care Provider [phone] Siomara Fitzgerald DO Unavailable [phone] Latrell Mckeon MD Unavailable Encounter Details Date Type Department Care Team (Late Contact Info) Description 08/13/2023 [facility] [address] [place] [address] Latrell Mckeon MD [address] [place] [address] Social History Tobacco Use Types Packs/Day Years Used Date Smoking Tobacco: Former Cigarettes 1 40 1 - 2011 Smokeless Tobacco: Never PHQ-2 Answer Date Recorded Patient Health Questionnaire-2 Score 0 08/11/2023 Comments Unknown Sex and Gender Information Value Date Recorded Sex Assigned at Not on file Legal Sex Female 7:08 PM EDT Gender Identity Not on file Sexual Orientation Not on file documented as of this encounter Plan of Treatment Upcoming Encounters Date Type Department Care Team (Late Contact Info) Description 02/24/2025 10:30 AM EDT Office Visit [facility] [address] [place] [address] Latrell Mckeon MD [address] [place] [address] documented as of this encounter Visit Diagnoses Not on filedocumented in this encounter Care Teams Java Software Architect Relationship Specialty Start Date End Date Latrell Mckeon MD [address] [place] [address] PCP - General Family Medicine 08/05/23 Latrell Mckeon MD [address] [place] [address] PCP - ACO Reach 08/16/24 Siomara Fitzgerald DO [address] [place] [address] Referring Physician Neurology 05/30/24 documented as of this encounter
--- OUTSIDE RECORDS SUMMARY | 2025-01-09 07:58 | XMS_ITS | Encounter Summary ---
Author Organization [facility] Address [address] [place] [address] Care Team Providers Care Muck Boss Name Role Phone Latrell Mckeon MD Primary Care Provider [phone] Siomara Fitzgerald DO Unavailable [phone] Latrell Mckeon MD Unavailable Encounter Details Date Type Department Care Team (Late st Contact Info) Description 12/04/2024 Abstract [facility] [address] [place] [address] Latrell Mckeon MD [address] [place] [address] Social History Tobacco Use Types Packs/Day Years [...] week 02/02/2024 How often do you attend [facility] or protestant services? Patient declined 02/02/2024 Do you belong to any clubs o r organizations such as samaritan groups, unions, fraternal or athletic groups, or [...] Recorded Patient Health Questionnaire-2 Score 0 08/27/2024 [facility] of Occupat ional Health - Occupational Stress [...] any time in the past 12 m [facility], were you homeless or living in a [...] 02/24/2025 10:30 AM EDT [facility] [address] [place] [address] Latrell Mckeon MD [address] [place] [address] documented as of this encounter Visit Diagnoses Not on filedocumented in this encounter Additional Health Concerns Assessment Noted Time PHQ-9 Depression Total Score: 4 08/27/19 25 10:00 AM EST documented as of this encounter Care Teams Muck Boss Relationship Specialty Start Date End Date Latrell Mckeon MD [address] [place] [address] PCP - General Family Medicine 08/05/23 Latrell Mckeon MD [address] [place] [address] PCP - ACO Reach 08/16/24 Siomara Fitzgerald DO [address] [place] [address] Referring Physician Neurology 05/30/24 documented as of this encounter
--- OUTSIDE RECORDS SUMMARY | 2025-01-09 07:58 | XMS_ITS | Encounter Summary ---
Author Organization [facility] Address [address] [place] [address] Care Team Providers Care Sexual Assault Counsellor Name Role Phone Latrell Mckeon MD Primary Care Provider [phone] Siomara Fitzgerald DO Unavailable [phone] Latrell Mckeon MD Unavailable Encounter Details [...] often do you attend chur ch or sabianist services? Patient declined 02/02/2024 Do you belong to any clubs o r organizations such as roman catholic groups, unions, fraternal or athletic groups, or [...] Recorded Patient Health Questionnaire-2 Score 0 08/11/2023 [facility] Occupat ional [facility] - Occupational Stress Questionnaire Answer Date [...] any time in the past 12 m [facility], were you homeless or living in a mcc (including now)? No 02/02/2024 Comments Unknown Sex and Gender Information Value Date Recorded Sex Assigned at Not on file Legal Sex Female 7:08 PM EDT Gender Identity Not on file Sexual Orientation Not on file documented as of this encounter Plan of Treatment Upcoming Encounters Date Type Department Care Team (Late st Contact Info) Description 02/24/2025 10:30 AM EDT Office Visit [facility] [address] [place] [address] Latrell Mckeon MD [address] [place] [address] documented as of this encounter Procedures Procedure Name Priority Date/Time Associated Diagnosis Comments ECG 12-LEAD 07/23/2024 12:08 PM EST documented in this encounter Results * ECG 12 lead (07/23/2024 12:08 PM EST) 07/23/2024 12:0 8 PM EST Narrative [facility] - 07/29/2024 12:16 PM EST Ventricular Rate : 66 BPM Atrial Rate : 66 BPM P-R Interval : 158 ms QRS Duration : 78 ms Q-T Interval : 404 ms QTC Calculation(Bazett) : 423 ms Calculated P Amo : 32 degrees Calculated R Amo : 14 degrees Calculated T Amo : 54 degrees NORMAL SINUS RHYTHM NORMAL ECG Confirmed by MD MCCLENDON HEBA ([id number]) on 07/29/2024 12:16:17 PM NAME : SHEY BOSS PID : [id number] : 1950 Gender : Female Race : ORD : [id number] Procedure Date : Jul 23 2024 12:08:10 Edit Date : Jul 29 2024 12:16:18 Diagnosis: NORMAL SINUS RHYTHM NORMAL ECG Confirmed by MD MCCLENDON HEBA ([id number]) on 07/29/2024 12:16:17 PM Test Reason : Location : 119 : A17 A17 Overread By : MD MCCLENDON HEBA Edited By : MD MCCLENDON HEBA Referred By : LISS BOYD Acquired by : SADE HA Procedure Note Radiology, Radiologist, - 07/29/2024 Ventricular Rate : 66 BPM Atrial Rate : 66 BPM P-R Interval : 158 ms QRS Duration : 78 ms Q-T Interval : 404 ms QTC Calculation(Bazett) : 423 ms Calculated P Amo : 32 degrees Calculated R Amo : 14 degrees Calculated T Amo : 54 degrees NORMAL SINUS RHYTHM NORMAL ECG Confirmed by MD MCCLENDON HEBA ([id number]) on 07/29/2024 12:16:17 PM NAME : SHEY BOSS PID : [id number] : 1950 Gender : Female Race : ORD : [id number] Procedure Date : Jul 23 2024 12:08:10 Edit Date : Jul 29 2024 12:16:18 Diagnosis: NORMAL SINUS RHYTHM NORMAL ECG Confirmed by MD MCCLENDON HEBA ([id number]) on 07/29/2024 12:16:17 PM Test Reason : Location : 119 : A17 A17 Overread By : MD MCCLENDON HEBA Edited By : MD MCCLENDON HEBA Referred By : LISS BOYD Acquired by : SADE HA us Generic External Data Provider ECG ORDERABLES F inal Result Performing Organization Address City/State/[facility] Co de Phone Number [facility] documented in this encounter Visit Diagnoses Not on filedocumented in this encounter Care Teams Sexual Assault Counsellor Relationship Specialty Start Date End Date Latrell Mckeon MD [address] [place] [address] PCP - General Family Medicine 08/05/23 Latrell Mckeon MD [address] [place] [address] PCP - ACO Reach 08/16/24 Siomara Fitzgerald DO [address] [place] [address] Referring Physician Neurology 05/30/24 documented as of this encounter
--- OUTSIDE RECORDS SUMMARY | 2025-01-09 07:58 | XMS_ITS ---
Author Organization [facility] Address [address] [place] [address] Care Team Providers Care Shrimp Peeling Machine Tender Name Role Phone Latrell Mckeon MD Primary Care Provider Siomara Fitzgerald DO Unavailable [phone] Latrell Mckeon MD Unavailable 30 Day Monitoring Program Status:Enrolled (Active) Start date:12/17/2024 Enrollment date:12/17/2024 Enrollment reason:Identified using hospital discharge data Case Team Name Relationship Phone Sugar [place]as FUR BUYER(Responsible Staff) Social Wor ker [phone] Continued Care and Services Coordination
--- OUTSIDE RECORDS SUMMARY | 2025-01-09 07:58 | XMS_ITS | Patient Health Record ---
Author Organization [facility] [place] Address [address] [place] [address] Care Team Providers Care Psychotherapist Counselor Name Role Phone Latrell Mckeon MD Primary Care Provider Marnie Silve[facility] [phone] Results Component Value Reference Range Notes XR foot RT min 3V (Not yet r eviewed by provider) Interpretation: Performing Lab: Notes/Report: Source Facility: [place] [address] XRay Report Signed Patient: SHEY BOSS MR#: [id number] : 1950 Acct:[id number] Age/Sex: 73 / F ADM Date: 04/09/24 Loc: EC Attending Dr: Marnie Sanchez D.P.M. Ordering Physician: Marnie Sanchez D.P.M. Date of Service: 04/09/24 Procedure(s): XR foot RT min 3V Accession Number(s): [id number] cc: Marnie Sanchez D.P.M.; Latrell Mckeon M.D. [address] [place] [address] Patient Name: SHEY BOSS MRN: [id number] date: 1950 Sex: F Assigned Patient Location: EC Current Patient Location: Accession/Order Number: [id number] Exam Date: 04/09/2024 09:34 Report Date: 04/10/2024 07:25 At the request of: MARNIE SANCHEZ Procedure: XR foot RT min 3V PROCEDURE: XR foot RT min 3V COMPARISON: None. HISTORY: RIGHT FOOT PAIN FINDINGS: BONES:No acute fracture or dislocation. Mild to moderate degenerative changes most significant first metatarsal-phalangeal joint. Mild to moderate enthesopathic spurring of the calcaneus at the Achilles and plantar insertions. 2. Partially visualized screws in the distal tibia with fracture of one of the screws SOFT TISSUES:Negative. No visible soft tissue swelling. EFFUSION:None visible. OTHER: Negative. XR/XR foot RT min 3V IMPRESSION: Aryk-gi-qwdiymjc osteoarthritis Electronically authenticated by: WILLARD RUSSO Date: 04/10/2024 07:25 Dictated By: Willard Russo M.D. Signed By: 04/10/24726 DD/ 4 TD/TT: Senior Auditor: [place] [address] XRay Report Signed Patient: FAMILIA BOSS MR#: [id number] : 1950 Acct:[id number] Age/Sex: 73 / F ADM Date: 04/09/24 Loc: EC Attending Dr: Marnie Sanchez D.P.M. Ordering Physician: Marnie Sanchez D.P.M. Date of Service: 04/09/24 Procedure(s): XR foot RT min 3V Accession Number(s): [id number] cc: Marnie Sanchez D.P.M.; Latrell Mckeon M.D. [place] [address] Patient Name: SHEY BOSS MRN: [id number] date: 1950 Sex: F Assigned Patient Location: Current Patient Location: Accession/Order Numb er: [id number] Exam Date: 09:34 Report Date: 04/10/2024 07:25 At the request of: MARNIE SANCHEZ Procedure: XR foot RT min 3V PROCEDURE: XR foot RT min 3V COMPARISON: None. HISTORY: RIGHT FOOT PAIN FINDINGS: BONES:No acute fract ure or dislocation. Mild to moderate degenerative changes most significant fir st metatarsal-phalangeal joint. Mild to moderate enthesopathic spurri ng of the calcaneus at the Achilles and plantar insertions. 2. Partially visuali zed screws in the distal tibia with fracture of one of the screws SOFT TISSUES:Negativ e. No visible soft tissue swelling. EFFUSION:None visible. OTHER: Negative. X R/XR foot RT min 3V IMPRESSION: Sovm-va-maansjba osteoarthritis Electronically authe nticated by: WILLARD RUSSO Date: 04/10/2024 07:25 Dictated By: Willard Russo M.D. Signed By: 04/10/24726 DD/ 4 TD/TT: Senior Auditor: XR Foot RT (3 views) * Reviewed date:07/08/2024 02:33:31 PM Interpretation: Performing Lab: Notes/Report: Reason For Referral Reason right lower limb foreign n Diagnosis 1 Unspecified mononeur opathy of right lower limb (G57.91) Referral Organization [facility] (PODIATRY) Referring Provider First Name Marnie Referring Provider Last Name Laura Referring Provider Speciality Podiatry Referred Provider Pain Management, [facility] Referred Provider Specialty Pain Medicin e Referral Priority Routine Reason see attached RX Diagnosis 1 Unspecified mononeur opathy of right lower limb (G57.91) Referral Organization [facility] (PODIATRY) Referring Provider First Name Marnie Referring Provider Last Name [facility] Referring Provider Speciality Podiatry Referred Provider Specialty Pharmacist Referral Priority Routine Medications Medication SIG (Take, Route, Frequency, Duration) Notes Start Date End Date Status Baclofen 10 MG 1 tablet as needed O rally Twice a day Active Aspirin 325 MG 1 tablet Orally Once a day Active Zolpidem Tartrate 10 MG 1 tablet at bedt ele as needed Orally Once a day Active Pantoprazole Sodium 40 MG 1 tablet Orall y Once a day Active CLA 1000 MG as directed Orally Active Famotidine 40 MG 1 tablet Orally Once a day Active DHEA 50 50 MG as directed Orally Active Atorvastatin Calcium 40 MG 1 tablet Oral ly Once a day Active Pregabalin 75 MG 1 capsule Orally twi ce daily for 30 days 04/09/2024 Active Multi Vitamin - 1 tablet Orally Once a day Active Calcium 600 MG 1 tablet with meals Orally Twice a day Active Ambien CR 12.5 MG 1 tablet at bedtime as needed Orally Once a day Active Vitamin E 100 UNIT as directed Orally Active Vitamin D 25 MCG (1000 UT) 1 tablet Oral ly Once a day Active Spiriva HandiHaler 18 MCG 1 capsule by kylie riosg the contents of the capsule using the HandiHaler device Inhalation Once a day Active Problems Problem Type SNOMED Code ICD Code Onset Dates Problem Status W/U Status Risk Notes Problem [id number] 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.91) Active confirmed Problem [id number] Radiculopathy, lumbar region (M54.16) Active confirmed Problem Right foot pain (M79.671) Active confirmed Vital Signs Heart Rate 79 /min 04/09/2024 Temperature 96.8 degrees Fahrenheit 04/09/2024 Oximetry 98 % 04/09/2024 Encounters Encounter Location Date Provider Diagnosis [facility] [address] [place] [address] 04/09/2024 Marnie Sanchez [facility] [address] [address] 04/09/2024 Marnie Sanchez Unspecified mononeuropathy of right lower limb [...] pain (ICD-10 - M79.671) Plan Of Treatment Pending Test Test Name Order Date XR foot RT min 3V 04/10/2024 Insurance Providers Payer Name Payer Address Payer Phone Subscriber Number Group Number Insured Name Patient Relationship to Insured Coverage Start Date Coverage End Date [facility] [address] [address] [place] [id number] [phone] [id number] Shey Boss Self - patient is the insured [employer] SUPPLEMENT [address] [address] [place], [place] [id number] Shey Boss Self - patient is the insured Medical (General) History Surgical History Surgery Date(Month/Year) right ankle sx right ankle HWR 2021
--- OUTSIDE RECORDS SUMMARY | 2025-01-09 07:58 | XMS_ITS | Encounter Summary ---
Author Organization [facility] Address [address] [place] [address] Care Team Providers Care Genetics Nurse Name Role Phone Latrell Mckeon MD Primary Care Provider [phone] Siomara Fitzgerald DO Unavailable [phone] Latrell Mckeon MD Unavailable Encounter Details Date Type Department Care Team (Late st Contact Info) Description 12/16/2024 Orders Only [facility] [address] [place] [address] Latrell Mckeon MD [address] [place] [address] Social History Tobacco Use Types [...] often do you attend chur ch or rastafarian services? Patient declined 02/02/2024 Do you belong to any clubs o r organizations such as zoroastrianism groups, unions, fraternal or athletic groups, or [...] Recorded Patient Health Questionnaire-2 Score 0 08/27/2024 [facility] of Occupat ional [facility] - Occupational Stress Questionnaire Answer [...] any time in the past 12 m [facility], were you homeless or living in a longterm (including now)? No 02/02/2024 Comments Unknown Sex [...] Office Visit [facility] [address] [place] [address] Latrell Mckeon MD [address] [place] [address] documented as of this encounter Procedures Procedure Name Priority Date/Time Associated Diagnosis Comments SCANNED LABS Routine 12/16/2024 2:53 PM EDT SCANNED LABS Routine 12/16/2024 1:12 PM EDT documented in this encounter Results * SCANNED LABS (12/16/2024 2:53 PM EDT) Latrell Mckeon MD LAB CHG PERFORMABLES Final Resul t * SCANNED LABS (12/16/2024 1:12 PM EDT) Latrell Mckeon MD LAB CHG PERFORMABLES Final Resul t documented in this encounter Visit Diagnoses Not on filedocumented in this encounter Additional Health Concerns Assessment Noted Time PHQ-9 Depression Total Score: 4 08/27/19 25 10:00 AM EST documented as of this encounter Care Teams Genetics Nurse Relationship Specialty Start Date End Date Latrell Mckeon MD [address] [place] [place] [address] PCP - General Family Medicine 08/05/23 Latrell Mckeon MD [address] [place] [address] PCP - ACO Reach 08/16/24 Siomara Fitzgerald DO [address] [place] [address] Referring Physician Neurology 05/30/24 documented as of this encounter
--- OUTSIDE RECORDS SUMMARY | 2025-01-09 07:58 | XMS_ITS | Encounter Summary ---
Author Organization [facility] Address [address] [place] [address] Care Team Providers Care Verification Rep Name Role Phone Latrell Mckeon MD Primary Care Provider [phone] Siomara Fitzgerald DO Unavailable [phone] Latrell Mckeon MD Unavailable Encounter Details Date Type Department Care Team (Late st Contact Info) Description 04/10/2024 Clinisync Result Encounter [facility] External Department Unsolicited [...] often do you attend chur ch or yazidism services? Patient declined 02/02/2024 Do you belong to any clubs o r organizations such as rastafari groups, unions, fraternal or athletic groups, or [...] Recorded Patient Health Questionnaire-2 Score 0 08/11/2023 [facility] of Occupat ional [facility] - Occupational Stress Questionnaire Answer Date [...] any time in the past 12 m [facility], were you homeless or living in a fdc (including now)? No 02/02/2024 Comments Unknown Sex [...] Visit [facility] [address] [place] [address] Latrell Mckeon MD [address] [place] [address] documented as of this encounter Procedures Procedure Name Priority Date/Time Associated Diagnosis Comments XR FOOT RT MIN 3V 04/10/2024 7:2 5 AM EDT documented in this encounter Results * XR FOOT RT MIN 3V (04/10/2024 7:25 AM EDT) Anatomical Region Laterality Modality Other 04/10/2024 7:25 AM EDT Narrative 04/10/2024 7:27 AM EDT The [address] [address] XRay Report Signed Patient: SHEY BOSS MR#: [id number] : 1950 Acct:[id number] Age/Sex: 73 / F ADM Date: 04/09/24 Loc: EC Attending Dr: Marnie Sanchez D.P.M. Ordering Physician: Marnie Sanchez D.P.M. Date of Service: 04/09/24 Procedure(s): XR foot RT min 3V Accession Number(s): [id number] cc: Marnie Sanchez D.P.M.; Latrell Mckeon M.D. [place] [id number] Patient Name: SHEY BOSS MRN: [id number] date: 1950 Sex: F Assigned Patient Location: Current Patient Location: Accession/Order Number: [id number] Exam Date: 04/09/2024 09:34 Report Date: 04/10/2024 [...] Negative. XR/XR foot RT min 3V IMPRESSION: Nwfp-ux-spdiryod osteoarthritis Electronically authenticated by: WILLARD RUSSO Date: 04/10/2024 07:25 Dictated By: Willard Russo M.D. Signed By: 04/10/24726 DD/ 4 TD/TT: Geoscience Technician: Procedure Note Radiology, Radiologist, MD - 04/10/2024 [place] [address] XRay Report Signed Patient: SHEY BOSS LMR#: [id number] : 1950cct:[id number] Age/Sex: 73 / FADM Date: 04/09/24 Loc: EC Attending Dr: Marnie Sanchez D.P.M. Ordering Physician: Marnie Sanchez D.P.M. Date of Service: 04/09/24 Procedure(s): XR foot RT min 3V Accession Number(s): [id number] cc: Marnie Sanchez D.P.M.; Latrell Mckeon M.D. The [place] [id number] Patient Name: SHEY BOSS MRN: [id number] date: 1950 Sex: F Assigned Patient Location: Current Patient Location: Accession/Order Number: [id number] Exam Date: 04/09/2024 09:34 Report Date: 04/10/2024 07:25 At the request of: MARNIE SANCHEZ Procedure: XR foot RT min 3V PROCEDURE: XR foot RT min 3V COMPARISON: None. HISTORY: RIGHT FOOT PAIN FINDINGS: BONES:No acute fracture or dislocation. Mild to moderate degenerativechanges most significant first metatarsal-phalangeal joint. Mild to moderate enthesopathic spurring of the calcaneus at the Achilles and plantar insertions. 2. Partially visualized screws in the distal tibia with fracture of one ofthe screws SOFT TISSUES:Negative. No visible soft tissue swelling. EFFUSION:None visible. OTHER: Negative. XR/XR foot RT min 3V IMPRESSION: Tknl-rt-yqstckip osteoarthritis Electronically authenticated by: WILLARD RUSSO Date: 04/10/2024 07:25 Dictated By: Willard Russo M.D. Signed By:04/10/24726 DD/ 4 TD/TT: Geoscience Technician: us Generic External Data Provider [facility] Final Result documented in this encounter Visit Diagnoses Not on filedocumented in this encounter Care Teams Verification Rep Relationship Specialty Start Date End Date Latrell Mckeon MD [address] [place] [address] PCP - General Family Medicine 08/05/23 Latrell Mckeon MD [address] [place] [address] PCP - ACO Reach 08/16/24 Siomara Fitzgerald DO [address] [place] [address] Referring Physician Neurology 05/30/24 documented as of this encounter
--- OUTSIDE RECORDS SUMMARY | 2025-01-09 07:58 | XMS_ITS | Encounter Summary ---
Author Organization [facility] Address [address] [place] [address] Care Team Providers Care Assistant Associate Full Professor Name Role Phone Latrell Mckeon MD Primary Care Provider [phone] Siomara Fitzgerald DO Unavailable [phone] Latrell Mckeon MD Unavailable Encounter Details Date Type Department Care Team (Late st Contact Info) Description 12/13/2024 Orders Only [facility] [address] [place] [address] Latrell Mckeon MD [address] [place] [address] Social History Tobacco Use Types [...] often do you attend chur ch or denominational services? Patient declined 02/02/2024 Do you belong to any clubs o r organizations such as mu-ism groups, unions, fraternal or athletic groups, or [...] [facility] of Occupat ional [facility] - Occupational Stress Questionnaire Answer Date [...] any time in the past 12 m [facility], were you homeless or living in [...] Office Visit [facility] [address] [place] [address] Latrell Mckeon MD [address] [place] [address] documented as of this encounter Procedures Procedure Name Priority Date/Time Associated Diagnosis Comments SCANNED LABS Routine 12/13/2024 10:13 AM EDT documented in this encounter Results * SCANNED LABS (12/13/2024 10:13 AM EDT) Latrell Mckeon MD LAB CHG PERFORMABLES Final Resul t documented in this encounter Visit Diagnoses Not on filedocumented in this encounter Additional Health Concerns Assessment Noted Time PHQ-9 Depression Total Score: 4 08/27/19 25 10:00 AM EST documented as of this encounter Care Teams Assistant Associate Full Professor Relationship Specialty Start Date End Date Latrell Mckeon MD [address] [place] [address] PCP - General Family Medicine 08/05/23 Latrell Mckeon MD [address] [place] [address] PCP - ACO Reach 08/16/24 Siomara Fitzgerald DO [address] [place] [address] Referring Physician Neurology 05/30/24 documented as of this encounter
--- OUTSIDE RECORDS SUMMARY | 2025-01-09 07:58 | XMS_ITS | Encounter Summary ---
Author Organization [facility] Address [address] [place] [address] Care Team Providers Care Manager Compensation Name Role Phone Latrell Mckeon MD Primary Care Provider [phone] Siomara Fitzgerald DO Unavailable [phone] Latrell Mckeon MD Unavailable Encounter Details Date Type Department Care Team (Late Contact Info) Description 11/28/2023 Clinisync Result Encounter [facility] External Department Unsolicited Latrell Mckeon MD [address] [place] [address] Social History Tobacco Use Types Packs/Day Years Used Date Smoking Tobacco: Former Cigarettes 1 40 1 2011 Smokeless Tobacco: Never PHQ-2 Answer Date [...] 02/24/2025 10:30 AM EDT Office Visit [facility] [address] [place] [address] Latrell Mckeon MD [address] [place] [address] documented as of this encounter Procedures Procedure Name Priority Date/Time Associated Diagnosis Comments MM SAHILOSYNTHESIS SCREENING BI 11/28/2023 3:15 PM EDT documented in this encounter Results * MM TOMOSYNTHESIS SCREENING BI (11/28/2023 3:15 PM EDT) Anatomical Region Laterality Modality Other 11/28/2023 3:15 PM EDT Narrative 11/28/2023 3:16 [place] [address] Mammography Report Signed Patient: SHEY BOSS MR#: [id number] : 1950 Acct:[id number] Age/Sex: 73 / F ADM Date: 11/28/23 Loc: MAMMO Attending Dr: Latrell Mckeon M.D. Ordering Physician: Latrell Mckeon M.D. Results: Date of Service: 11/28/23 Follow Up: Procedure(s): MM tomosynthesis screening BI Accession Number(s): [id number] cc: Latrell Mckeon M.D. Patient Name: SHEY BOSS MR#: [id number] : 1950 Exam Date: 11/28/2023 Ordering Doctor: DR Latrell Mckeon . RADIOLOGY REPORT PROCEDURE: MM TOMOSYNTHESIS SCREENING BI COMPARISON: MG MAMM SCREEN 3D RONALD CAD, 11/24/2022. MG MAMM SCREEN 3D RONALD CAD, 11/11/2021. MG MAMM SCREEN 3D RONALD CAD, 11/05/2020. INDICATIONS: Screening Calculator Name NCI Breast Cancer Risk Assessment Tool 5 Year Breast Cancer Risk 2.00% Lifetime Breast Cancer Risk 5.10% Personal Breast Cancer No Personal Ovarian Cancer No Treatments None Family Cancers Father with lung cancer at age 45. LOCATION: The [facility] BREAST COMPOSITION: The breasts are almost entirely fatty. FINDINGS: DIAGNOSTIC CATEGORY 2--BENIGN FINDING: RIGHT BREAST: No significant suspicious finding. Scattered benign-appearing calcifications are present. No significant change has occurred. LEFT BREAST: No significant suspicious finding. No significant change has occurred. RECOMMENDATIONS: ROUTINE MAMMOGRAM AND CLINICAL EVALUATION IN 12 MONTHS. PLEASE NOTE: A NORMAL MAMMOGRAM DOES NOT EXCLUDE THE POSSIBILITY OF BREAST CANCER. A CLINICALLY SUSPICIOUS PALPABLE LUMP SHOULD BE BIOPSIED. Dictated by: Mirza Cleveland M.D. on 11/28/2023 at 14:38 Approved by: Mirza Cleveland M.D. on 11/28/2023 at 15:15 Dictated By: Mirza Cleveland M.D. Signed By: 11/28/23 1516 DD/ 1515 TD/TT: Learning And Development Intern: Procedure Note Radiology, Radiologist, MD - 11/28/2023 [place] [address] Mammography Report Signed Patient: SHEY BOSS LMR#: [id number] : 1950cct:[id number] Age/Sex: 73 / FADM Date: 11/28/23 Loc: MAMMO Attending Dr: Latrell Mckeon M.D. Ordering Physician: Latrell Mckeon M.D.Results: Date of Service: 11/28/23Follow Up: Procedure(s): MM tomosynthesis screening BI Accession Number(s): [id number] cc: Latrell Mckeon M.D. Patient Name: SHEY BOSS MR#: [id number] : 1950 Exam Date: 11/28/2023 Ordering Doctor: DR Latrell Mckeon . RADIOLOGY REPORT PROCEDURE: MM TOMOSYNTHESIS SCREENING BI COMPARISON: MG MAMM SCREEN 3D RONALD CAD, 11/24/2022. MG MAMM SCREEN 3DBIL CAD, 11/11/2021. MG MAMM SCREEN 3D RONALD CAD, 11/05/2020. INDICATIONS: Screening Calculator Name NCI Breast Cancer Risk Assessment Tool 5 Year Breast Cancer Risk 2.00% Lifetime Breast Cancer Risk 5.10% Personal Breast Cancer No Personal Ovarian Cancer No Treatments None Family Cancers Father with lung cancer at age 45. LOCATION: The [facility] BREAST COMPOSITION: The breasts are almost entirely fatty. FINDINGS: DIAGNOSTIC CATEGORY 2--BENIGN FINDING: RIGHT BREAST: No significant suspicious finding. Scatteredbenign-appearing calcifications are present. No significant change has occurred. LEFT BREAST: No significant suspicious finding. No significant changehas occurred. RECOMMENDATIONS: ROUTINE MAMMOGRAM AND CLINICAL EVALUATION IN 12 MONTHS. PLEASE NOTE: A NORMAL MAMMOGRAM DOES NOT EXCLUDE THE POSSIBILITY OFBREAST CANCER. A CLINICALLY SUSPICIOUS PALPABLE LUMP SHOULD BE BIOPSIED. Dictated by: Mirza Cleveland M.D. on 11/28/2023 at 14:38 Approved by: Mirza Cleveland M.D. on 11/28/2023 at 15:15 Dictated By: Mirza Cleveland M.D. Signed By:11/28/23 1516 DD/ 1515 TD/TT: Learning And Development Intern: Latrell Mckeon MD [facility] Final Result documented in this encounter Visit Diagnoses Not on filedocumented in this encounter Care Teams Manager Compensation Relationship Specialty Start Date End Date Latrell Mckeon MD [address] [place] [address] PCP - General Family Medicine 08/05/23 Latrell Mckeon MD [address] [place] [address] PCP - ACO Reach 08/16/24 Siomara Fitzgerald DO [address] [place] [address] Referring Physician Neurology 05/30/24 documented as of this encounter
--- OUTSIDE RECORDS SUMMARY | 2025-01-09 07:58 | XMS_ITS | Encounter Summary ---
Author Organization [facility] Address [address] [facility] [place] [address] Care Team Providers Care Aeronautical Inspector Name Role Phone Latrell Mckeon MD Primary Care Provider [phone] Siomara Fitzgerald DO Unavailable [phone] Latrell Mckeon MD Unavailable Encounter Details Date Type Department Care Team (Late Contact Info) Description 11/28/2023 Orders Only [facility] [address] [place] [address] Latrell Mckeon MD [address] [place] [address] Social History Tobacco Use Types [...] 02/24/2025 10:30 AM EDT Office Visit [facility] [address] [place] [address] Latrell Mckeon MD [address] [place] [address] documented as of this encounter Procedures Procedure Name Priority Date/Time Associated Diagnosis Comments MM SCREENING MAMM WITH 3D BRANDIE - US AND ADDITIONAL Routine 11/28/2023 4:02 PM EDT documented in this encounter Results * MM SCREENING MAMM WITH 3D BRANDIE - US AND ADDITIONAL (11/28/2023 4:02 PM EDT) Anatomical Region Laterality Modality Radiographic Lani ging Latrell Mckeon MD IMG XR PROCEDURES Final Result documented in this encounter Visit Diagnoses Not on filedocumented in this encounter Care Teams Aeronautical Inspector Relationship Specialty Start Date End Date Latrell Mckeon MD [address] [place] [address] PCP - General Family Medicine 08/05/23 Latrell Mckeon MD [address] [place] [address] PCP - ACO Reach 08/16/24 Siomara Fitzgerald DO [address] [place] [address] Referring Physician Neurology 05/30/24 documented as of this encounter
--- OUTSIDE RECORDS SUMMARY | 2025-01-09 07:58 | XMS_ITS | Encounter Summary ---
Author Organization [facility] Address [address] [place] [address] Care Team Providers Care Tank Builder Name Role Phone Latrell Mckeon MD Primary Care Provider [phone] Siomara Fitzgerald DO Unavailable [phone] Latrell Mckeon MD Unavailable Encounter Details Date Type Department Care Team (Late st Contact Info) Description 04/22/2024 Clinisync Result Encounter [facility] External Department Unsolicited [...] often do you attend chur ch or protestant services? Patient declined 02/02/2024 Do you belong to any clubs o r organizations such as amish groups, unions, fraternal or athletic groups, or [...] Recorded Patient Health Questionnaire-2 Score 0 08/11/2023 [facility] of Occupat ional [facility] - Occupational Stress Questionnaire Answer [...] any time in the past 12 m [facility], were you homeless or living in a [...] Visit [facility] [address] [place] [address] Latrell Mckeon MD [address] [place] [address] documented as of this encounter Procedures Procedure Name Priority Date/Time Associated Diagnosis Comments MR LUMBAR SPINE WO CON 04/22/2024 1:57 PM EDT documented in this encounter Results * MR LUMBAR SPINE WO CON (04/22/2024 1:57 PM EDT) Anatomical Region Laterality Modality Other 04/22/2024 1:57 PM EDT Narrative 04/22/2024 2:00 PM EDT The [address] [address] Magnetic Resonance Report Signed Patient: SHEY BOSS MR#: [id number] : 1950 Acct:[id number] Age/Sex: 73 / F ADM Date: 04/22/24 Loc: MRI Attending Dr: Talat Arguello M.D. Ordering Physician: Talat Arguello M.D. Date of Service: 04/22/24 Procedure(s): MR lumbar spine wo con Accession Number(s): [id number] cc: Talat Arguello M.D.; Latrell Mckeon M.D. [address] [address] Patient Name: SHEY BOSS MRN: [facility]:[id number] date: 1950 Sex: F Assigned Patient Location: MRI Current Patient Location: Accession/Order Number: [id number] Exam Date: 04/22/2024 07:45 Report Date: 04/22/2024 13:57 At the request of: TALAT ARGUELLO Procedure: MR lumbar spine wo con EXAMINATION: MR lumbar spine wo con HISTORY: Lumbar stenosis with neuroclaudication COMPARISON: No relevant comparison available. TECHNIQUE: A variety of imaging planes and parameters were utilized for visualization of suspected pathology. FINDINGS: For the purposes of numbering, sagittal T2 image # 8 extends from the T10/T11 vertebral body superiorly to the S3-S4 level inferiorly. PARASPINAL AREA: Normal with no visible mass. BONES: Normal alignment with no acute fracture, dislocation or bone edema. CORD/CAUDA EQUINA: Normal caliber, contour, and signal intensity. DISC LEVELS: 12-L1: No significant disc/facet abnormality, spinal stenosis, or foraminal stenosis. L1-L2: Moderate disc space narrowing and disc desiccation. Moderate diffuse disc bulge with ligamentum flavum hypertrophy and facet osteoarthropathy L2-L3: Early degenerative disc disease is present without focal protrusion or neural impingement. L3-L4: Disc space narrowing and disc desiccation. Mild diffuse disc/osteophyte complex. Moderate ligamentum flavum hypertrophy. Mild central canal stenosis. No foraminal stenosis L4-L5: Disc desiccation. Mild diffuse disc/osteophyte complex. Severe segmental flavum hypertrophy and facet osteoarthropathy. Severe central canal stenosis. No right foraminal stenosis. Mild narrowing of the left neural foramen L5-S1: Disc desiccation. Posterior broad-based disc protrusion extending posteriorly up to 2.8 mm. No central or foraminal stenosis MR/MR lumbar spine wo con IMPRESSION: Degenerative changes most significant at L4-L5 where there is severe central canal stenosis and mild left foraminal stenosis Electronically authenticated by: WILLARD RUSSO Date: 04/22/2024 13:57 Dictated By: Willard Russo M.D. Signed By: 04/22/241399 DD/ 1357 TD/TT: Wire Insulator: Procedure Note Radiology, Radiologist, - 04/22/[address] [address] Magnetic Resonance Report Signed Patient: SHEY BOSS LMR#: [id number] : 1950cct:[id number] Age/Sex: 73 / FADM Date: 04/22/24 Loc: MRI Attending Dr: Talat Arguello M.D. Ordering Physician: Talat Arguello M.D. Date of Service: 04/22/24 Procedure(s): MR lumbar spine wo con Accession Number(s): [id number] cc: Talat Arguello M.D.; Latrell Mckeon M.D. The [address] [address] Patient Name: SHEY BOSS MRN: [id number] date: 1950 Sex: F Assigned Patient Location: MRI Current Patient Location: PM Accession/Order Number: [id number] Exam Date: 04/22/2024 07:45 Report Date: 04/22/2024 13:57 At the request of: TALAT ARGUELLO Procedure: MR lumbar spine wo con EXAMINATION: MR lumbar spine wo con HISTORY: Lumbar stenosis with neuroclaudication COMPARISON: No relevant comparison available. TECHNIQUE: A variety of imaging planes and parameters were utilized for visualization of suspected pathology. FINDINGS: For the purposes of numbering, sagittal T2 image # 8 extends from theT10/T11 vertebral body superiorly to the S3-S4 level inferiorly. PARASPINAL AREA: Normal with no visible mass. BONES: Normal alignment with no acute fracture, dislocation or bone edema. CORD/CAUDA EQUINA: Normal caliber, contour, and signal intensity. DISC LEVELS: 12-L1: No significant disc/facet abnormality, spinal stenosis, orforaminal stenosis. L1-L2: Moderate disc space narrowing and disc desiccation. Moderatediffuse disc bulge with ligamentum flavum hypertrophy and facet osteoarthropathy L2-L3: Early degenerative disc disease is present without focal protrusionor neural impingement. L3-L4: Disc space narrowing and disc desiccation. Mild diffusedisc/osteophyte complex. Moderate ligamentum flavum hypertrophy. Mild central canalstenosis. No foraminal stenosis L4-L5: Disc desiccation. Mild diffuse disc/osteophyte complex. Severe segmental flavum hypertrophy and facet osteoarthropathy. Severe central canalstenosis. No right foraminal stenosis. Mild narrowing of the left neural foramen L5-S1: Disc desiccation. Posterior broad-based disc protrusion extending posteriorly up to 2.8 mm. No central or foraminal stenosis MR/MR lumbar spine wo con IMPRESSION: Degenerative changes most significant at L4-L5 where there is severecentral canal stenosis and mild left foraminal stenosis Electronically authenticated by: WILLARD RUSSO Date: 04/22/2024 13:57 Dictated By: Willard Russo M.D. Signed By:04/22/24 1400 DD/ 1357 TD/TT: Wire Insulator: Generic External Data Provider [facility] Final Result documented in this encounter Visit Diagnoses Not on filedocumented in this encounter Care Teams Tank Builder Relationship Specialty Start Date End Date Latrell Mckeon MD [address] [place] [address] PCP - General Family Medicine 08/05/23 Latrell Mckeon MD [address] [place] [address] PCP - ACO Reach 08/16/24 Siomara Fitzgerald DO [address] [place] [address] Referring Physician Neurology 05/30/24 documented as of this encounter
--- OUTSIDE RECORDS SUMMARY | 2025-01-09 07:59 | XMS_ITS | Encounter Summary ---
Author Organization [facility] Address [address] [place] [address] Care Team Providers Care Pattern Ruler Name Role Phone Latrell Mckeon MD Primary Care Provider [phone] Siomara Fitzgerald DO Unavailable [phone] Latrell Mckeon MD Unavailable Encounter Details Date Type Department Care Team (Late st Contact Info) Description 01/07/2025 Patient Outreach [facility] [address] [place] [phone] Sugar Arenas, FABIANO [address], [place] [id number] Social History Tobacco Use Types Packs/Day Years [...] week 02/02/2024 How often do you attend [facility] or mormon services? Patient declined 02/02/2024 Do you belong to any clubs o r organizations such as presybeterian groups, unions, fraternal or athletic groups, or [...] Recorded Patient Health Questionnaire-2 Score 0 08/27/2024 [facility] of Occupat ional Health - Occupational Stress [...] any time in the past 12 m [facility], were you homeless or living in a long term (including now)? No 02/02/2024 Comments Unknown Sex and Gender Information Value Date Recorded Sex Assigned at Not on file Legal Sex Female 7:08 PM EDT Gender Identity Not on file Sexual Orientation Not on file documented as of this encounter Progress Notes * FABIANO Wade - 01/07/2025 12:19 PM EDT Called pt for week 3 of 30 day monitoring. She just returned home yesterday [facility] and[facility] recuperating. She enjoyed the reunion and looks forward to next year. Notes depression comes andgoes; at times really enjoyed talking with family, but also wished for more one-on-one time to talk. Pt had first counseling appt at [facility] last week, discussed option of transferring services to [place] office but pt states she is OK with driving to [place] if this cannot be done. Aplan for her treatment was developed. She'll follow up with counselor and also their nurse on 01/09. Pt did receive coping skills education that [facility] mailed to her, she will review info this week. Pt did not get to speak to her brother much at [facility], she will plan a time to meet with him to go over her finances. He lives about 2hrs away. No other needs at this time. She is agreeable to follow up call next week. documented in this encounter Plan of Treatment Upcoming Encounters Date Type Department Care Team (Late st Contact Info) Description 02/24/2025 10:30 AM EDT Office Visit [facility] [address] [place] [address] Latrell Mckeon MD [address] [place] [phone] documented as of this encounter Visit Diagnoses Diagnosis Moderate episode of recurrent major depressive disorder (HCC)- Primary 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HCC) Senile dementia, uncomplicated documented in this encounter Additional Health Concerns Assessment Noted Time PHQ-9 Depression Total Score: 4 08/27/19 25 10:00 AM EST documented as of this encounter Care Teams Pattern Ruler Relationship Specialty Start Date End Date Latrell Mckeon MD [address] [place] [phone] PCP - General Family Medicine 08/05/23 Latrell Mckeon MD [address] [place] [address] PCP - ACO Reach 08/16/24 Siomara Fitzgerald DO [address] [place] [address] Referring Physician Neurology 05/30/24 documented as of this encounter
--- OUTSIDE RECORDS SUMMARY | 2025-01-09 07:59 | XMS_ITS | Encounter Summary ---
Author Organization [facility] Address [address] [place] [address] Care Team Providers Care Utility Tractor Operator Name Role Phone Latrell Mckeon MD Primary Care Provider [phone] Diomedes Matute DO Unavailable [phone] Latrell Mckeon MD Unavailable Encounter Details Date Type Department Care Team (Late st Contact Info) Description 03/15/2024 Clinisync Result Encounter [facility] Unsolicited Diomedes Matute DO Social History Tobacco Use Types Packs/Day Years [...] week 02/02/2024 How often do you attend [facility] or [facility] services? Patient declined 02/02/2024 Do you belong to any clubs o r organizations such as restorationist groups, unions, fraternal or athletic groups, or [...] Recorded Patient Health Questionnaire-2 Score 0 08/11/2023 [facility] of Occupat ional [facility] - Occupational Stress Questionnaire Answer Date Recorded [...] any time in the past [address] [facility], were you homeless or living in a half-way (including now)? No 02/02/2024 Comments Unknown Sex [...] Visit [facility] [address] [place] [address] Latrell Mckeon MD [address] [place] [address] documented as of this encounter Procedures Procedure Name Priority Date/Time Associated Diagnosis Comments MR HEAD/BRAIN WO CON 03/15/2024 12:12 PM EDT documented in this encounter Results * MR HEAD/BRAIN WO CON (03/15/2024 12:12 PM EDT) Anatomical Region Laterality Modality Other 03/15/2024 12:1 2 PM EDT Narrative 03/15/2024 12:15 [place] [address] Magnetic Resonance Report Signed Patient: SHEY BOSS MR#: [id number] : 1950 Acct:[id number] Age/Sex: 73 / F ADM Date: 03/15/24 Loc: MRI Attending Dr: Diomedes Matute D.O. Ordering Physician: Diomedes Matute D.O. Date of Service: 03/15/24 Procedure(s): MR head/brain wo con Accession Number(s): [id number] cc: Diomedes Matute D.O.; Latrell Mckeon M.D. The [place] [address] Patient Name: SHEY BOSS MRN: [facility]:[id number] date: 1950 Sex: F Assigned Patient Location: MRI Current Patient Location: MRI Accession/Order Number: [id number] Exam Date: 03/15/2024 09:50 Report Date: 03/15/2024 12:12 At the request of: DIOMEDES MATUTE Procedure: MR head/brain wo con EXAM: MR head/brain wo con HISTORY: Memory Loss R41.3 COMPARISON: None. TECHNIQUE: MRI of the brain was performed without contrast. FINDINGS: There is no restricted diffusion to suggest acute infarct. There is no midline shift, mass effect, or abnormal extraaxial fluid collections. There is mild generalized cerebral and cerebellar atrophy. There are a few nonspecific T2 bright foci in the supratentorial white matter, likely reflect chronic microvascular ischemic changes. The major intracranial flow voids are visualized. The cerebellar tonsils are normal in position. The orbits are unremarkable. The paranasal sinuses show no air-fluid level. There is mild mucoperiosteal thickening of bilateral ethmoid air cells. The mastoid air cells are clear. The calvarium and extracranial soft tissues are unremarkable. MR/MR head/brain wo con IMPRESSION: No acute intracranial abnormality. Mild chronic microvascular ischemic and involutional changes Electronically authenticated by: ARNOLD VARGAS Date: 03/15/2024 12:12 Dictated By: ARNOLD VARGAS M.D. Signed By: 03/15/24 1215 DD/ 1212 TD/TT: Set Decorator: Procedure Note Radiology, Radiologist, MD - 03/15/2024 [place] [address] Magnetic Resonance Report Signed Patient: SHEY BOSS LMR#: [id number] : 1950cct:[id number] Age/Sex: 73 / FADM Date: 03/15/24 Loc: MRI Attending Dr: Diomedes Matute D.O. Ordering Physician: Diomedes Matute D.O. Date of Service: 03/15/24 Procedure(s): MR head/brain wo con Accession Number(s): [id number] cc: Diomedes Matute D.O.; Latrell Mckeon M.D. The [address] [address] Patient Name: SHEY BOSS MRN: [id number] date: 1950 Sex: F Assigned Patient Location: MRI Current Patient Location: MRI Accession/Order Number: [id number] Exam Date: 03/15/2024 09:50 Report Date: 03/15/2024 12:12 At the request of: DIOMEDES MATUTE Procedure: MR head/brain wo con EXAM: MR head/brain wo con HISTORY: Memory Loss R41.3 COMPARISON: None. TECHNIQUE: MRI of the brain was performed without contrast. FINDINGS: There is no restricted diffusion to suggest acute infarct. There is no midline shift, mass effect, or abnormal extraaxial fluid collections. There is mild generalized cerebral and cerebellar atrophy. There are a few nonspecific T2 bright foci in the supratentorial white matter, likelyreflect chronic microvascular ischemic changes. The major intracranial flow voids are visualized. The cerebellar tonsilsare normal in position. The orbits are unremarkable. The paranasal sinuses show no air-fluidlevel. There is mild mucoperiosteal thickening of bilateral ethmoid air cells.The mastoid air cells are clear. The calvarium and extracranial soft tissuesare unremarkable. MR/MR head/brain wo con IMPRESSION: No acute intracranial abnormality. Mild chronic microvascular ischemic and involutional changes Electronically authenticated by: ARNOLD VARGAS Date: 03/15/2024 12:12 Dictated By: ARNOLD VARGAS M.D. Signed By:03/15/24 1215 DD/ 1212 TD/TT: Set Decorator: Diomedes Matute DO [facility] Final Result documented in this encounter Visit Diagnoses Not on filedocumented in this encounter Care Teams Utility Tractor Operator Relationship Specialty Start Date End Date Latrell Mckeon MD [address] [place] [address] PCP - General Family Medicine 08/05/23 Latrell Mckeon MD [address] [place] [address] PCP - ACO Reach 08/16/24 Diomedes Matute DO [address] [place] [address] Referring Physician Neurology 05/30/24 documented as of this encounter
--- OUTSIDE RECORDS SUMMARY | 2025-01-09 07:59 | XMS_ITS | Clinical Summary ---
Author Organization [facility] Address [address] [place] [address] Care Team Providers Care Benzol Still Operator Name Role Phone Latrell Mckeon MD Primary Care Provider [phone] Siomara Fitzgerald DO Unavailable [phone] Latrell Mckeon MD Unavailable Allergies No known active allergies Medications aspirin 81 MG EC tablet Take 1 tablet by mouth 1 (one) time each day at the same time Active calcium carbonate 1500 (600 Ca) MG tablet Take 1 tablet by mouth in the morning and 1 tablet in the evening. Take with meals. Active cholecalciferol (Vitamin D-3) 25 MCG (1000 UT) capsule Take 1 capsule by mouth 1 (one) time each day at the same time Active alpha tocopherol (Vitamin E) 400 units capsule Take 1 capsule by mouth 1 (one) time each day at the same time Active atorvastatin (Lipitor) 40 MG tabletIndications:D yslipidemia Take 1 tablet (40 mg) by mouth at bedtime 90 tablet 3 024 Active albuterol (2.5 MG/3ML) 0.083% nebulizer solutionIndications :Chronic obstructive pulmonary disease, unspecified COPD type (HCC) Take 3 mL (2.5 mg) by nebulization every 4 (four) hours if needed for wheezing or shortness of breath 150 mL 3 024 Active fluticasone (Flonase) 50 MCG/ACT nasal sprayIndications:Se asonal allergic rhinitis due to pollen USE 2 SPRAYS IN EACH NOSTRIL DAILY 48 mL 5 024 Active famotidine (Pepcid) 40 MG tabletIndications:H iatal hernia with gastroesophageal reflux disease without esophagitis TAKE 1 TABLET TWICE DAILY 180 tablet 3 024 Active Multiple Vitamin (multivitamin) capsule Take 1 capsule by mouth Daily Active baclofen (Lioresal) 10 MG tablet Take 5 mg by mouth in the morning and 5 mg before bedtime. Active losartan (Cozaar) 50 MG tabletIndications:E ssential hypertension, benign Take 1 tablet (50 mg) by mouth in the morning and 1 tablet (50 mg) before bedtime. 180 tablet 3 024 Active pantoprazole (ProtoNix) 40 MG EC tabletIndications:H iatal hernia with gastroesophageal reflux disease without esophagitis Take 1 tablet (40 mg) by mouth in the morning and 1 tablet (40 mg) before bedtime. 180 tablet 3 024 Active Additional Information Patient taking differently:40 mg OralDaily, Reported on 12/17/2024 Docusate Sodium (DSS) 100 MG capsule Take 100 mg by mouth every 12 (twelve) hours if needed Active acetaminophen (Tylenol) 500 MG tablet Take 500 mg by mouth every 6 (six) hours if needed for mild pain or moderate pain Take 2 tabs every 6 hours as needed for pain. Active zonisamide (Zonegran) 50 MG capsule Take 100 mg by mouth Daily Active Spiriva HandiHaler 18 MCG inhalation capsuleIndications: Chronic obstructive pulmonary disease, unspecified COPD type (HCC) PLACE 1 CAPSULE (18 MCG) INTO INHALER AND INHALE IN THE MORNING 30 capsule 11 Active zolpidem (Ambien) 10 MG tabletIndications:P rimary insomnia TAKE 1 TABLET BY MOUTH AT BEDTIME NEEDED FOR SLEEP 90 tablet 025 Active donepezil (Aricept) 10 MG tabletIndications:M abundio loss TAKE 1 TABLET BY MOUTH EVERYDAY AT BEDTIME 90 tablet 1 025 Active methocarbamol (Robaxin) 750 MG tabletIndications:D egenerative lumbar spinal stenosis Take 1 tablet (750 mg) by mouth 4 (four) times a day as needed for muscle spasms 60 tablet 2 025 Active mirtazapine (Remeron) 7.5 MG tablet Take 7.5 mg by mouth at bedtime 025 Active predniSONE (Deltasone) 50 MG tabletIndications:D egenerative lumbar spinal stenosis Take 1 tablet (50 mg) by mouth Daily for 6 days 6 tablet 025 2024 Discontinued Active Problems Problem Noted Date Diagnosed Date Degenerative lumbar spinal stenosis 12/04/2024 Assessment & Plan (12/04/2024 2:25 PM EDT): Recent flare and increased pain. Treat with prednisone. Use robaxin for spasms and norco PRN. Follow up with pain management next week as scheduled. Medicare annual wellness visit, subsequent 08/27 Assessment & Plan (08/27/2024 11:04 AM EST): Due for labs. Discussed proper diet and regular aerobic exercise. Need aerobic exercise 5-6 days a week for 30 minutes at a time. Smaller portions and limit total calories. Colonoscopy every 10 years. Tetanus every 10 years. Advised not to smoke. Discussed daily Aspirin therapy. Class 2 severe obesity due t o excess calories with serious comorbidity and body mass index (BMI) of 36.0 to 36.9 in adult 03/03/2024 Assessment & Plan (08/27/2024 11:03 AM EST): Weight loss indicated. Assessment & Plan (05/15/2024 10:33 AM EST): Weight loss indicated. Stroke 03/03/2024 Dysphagia 02/09/2024 Assessment & Plan (02/09/2024 10:30 AM EDT): Problems swallowing and refer to GI for endoscopy. Senile dementia 02/09/2024 Assessment & Plan (08/27/2024 11:05 AM EST): Follow with neurology. Assessment & Plan (02/09/2024 10:32 AM EDT): Worsening memory and family history of Alzheimer's. Start aricept and refer to neurology for evaluation. Prediabetes 08/13/2023 Essential hypertension, benign 08/11/2023 Assessment & Plan (08/27/2024 11:03 AM EST): BP controlled and monitor PRN. Assessment & Plan (05/15/2024 10:34 AM EST): BP improved but still elevated and increase losartan. Continue to monitor PRN. Assessment & Plan (02/09/2024 10:31 AM EDT): BP elevated and increase losartan. Continue to monitor PRN. Assessment & Plan (08/11/2023 10:22 AM EST): BP controlled and monitor PRN. Primary osteoarthritis of both knees 08/11/2023 Assessment & Plan (05/15/2024 10:35 AM EST): Pain stable and use OTC PRN. Assessment & Plan (02/09/2024 10:31 AM EDT): Pain stable and use OTC PRN. Assessment & Plan (08/11/2023 10:22 AM EST): Pain stable and use OTC PRN. COPD (chronic obstructive pulmonary disease) 08/2023 Assessment & Plan (12/04/2024 2:24 PM EDT): SOB stable and continue albuterol nebulized PRN. Script for new machine to patient. Assessment & Plan (08/27/2024 11:03 AM EST): Symptoms stable and continue spiriva. Use albuterol PRN. Assessment & Plan (05/15/2024 10:33 AM EST): Symptoms stable and continue spiriva. Use albuterol PRN. Assessment & Plan (02/09/2024 10:30 AM EDT): Symptoms stable and continue spiriva. Use albuterol PRN. Assessment & Plan (08/11/2023 10:22 AM EST): Symptoms stable and continue spiriva. Use albuterol PRN. Dyslipidemia 08/11/2023 Lower extremity edema 08/11/2023 Osteopenia of lumbar spine 08/11/2023 TIA (transient ischemic attack) 08/11/2023 EDWIN (obstructive sleep apnea) 08/11/2023 Assessment & Plan (05/15/2024 10:35 AM EST): Sleeping well with CPAP and continue nightly. The patient is benefiting from PAP therapy. Assessment & Plan (02/09/2024 10:31 AM EDT): Sleeping well with CPAP and continue nightly. The patient is benefiting from PAP therapy. Primary insomnia 08/11/2023 Assessment & Plan (05/15/2024 10:35 AM EST): Sleeping well with ambien and continue. Assessment & Plan (02/09/2024 10:31 AM EDT): Sleeping well with ambien and continue. Assessment & Plan (08/11/2023 10:22 AM EST): Sleeping well with ambien and continue. Encounter for long-term (current) use of medicat ions 08/11/2023 Seasonal allergic rhinitis due to pollen 024 Assessment & Plan (08/11/2023 10:23 AM EST): Increased symptoms and use flonase daily. Resolved Problems Problem Noted Date Diagnosed Date Resolved Date Hypersomnia 03/03/2024 05/15/2024 Hiatal hernia with gastroeso phageal reflux disease without esophagitis 08/11/2023 12/04/2024 Assessment & Plan (05/15/2024 10:34 AM EST): GERD controlled but still problems swallowing. Scheduled for surgery 07/24. Assessment & Plan (02/09/2024 10:31 AM EDT): Denies reflux but developed dysphagia. Increase protonix. Assessment & Plan (08/11/2023 10:22 AM EST): Symptoms controlled with protonix and continue. Morbid obesity due to excess calories 08/11/2023 08/27/2024 Encounters Date Type Department Care Team Description 01/07/2025 Patient Outreach [facility] [address] [place] [address] DagobertoSugar walters, [facility] 12/30/2024 Patient Outreach [facility] [place] [address] [place] [address] [facility], COST ACCOUNTANT 12/23/2024 Patient Outreach [facility] [place] [address] [place] [address] [facility], [facility] 12/17/2024 Patient Outreach [facility] [place] [address] [place] [address] Mikala Cueto LPN 12/16/2024 Orders Only [facility] [address] [place] [address] Latrell Mckeon MD 12/13/2024 Orders Only [facility] [address] [place] [address] Latrell Mckeon MD 12/12/2024 Clinisync Result Encounter [facility] External Department Unsolicited Provider, Generic External Data 12/12/2024 Orders Only [facility] [address] [place] [address] Will Woodson NP 12/04/2024 1:30 PM EDT Office Visit [facility] [address] [place] [address] Latrell Mckeon MD Degenerative lumbar spinal stenosis (Primary Dx); Chronic obstructive pulmonary disease, unspecified COPD type (HCC) 12/04/2024 Abstract [facility] [address] [place] [address] Latrell Mckeon MD 12/03/2024 Travel 12/03/2024 Patient Outreach [facility] [address] [place] [address] Tomasa Coon MA 10/31/2024 Refill [facility] [address] [place] [phone] Sandra Arcos NP Memory loss 10/30/2024 Refill [facility] [address] [place] [address] Latrell Mckeon MD Primary insomnia; Chronic obstructive pulmonary disease, unspecified COPD type (HCC) 10/29/2024 [facility] [address] [place] [address] Latrell Mckeon MD Chronic obstructive pulmonary disease, unspecified COPD type (HCC); Primary insomnia from Last 3 Months Immunizations Immunization Administration Dates Next Due Pneumococcal Conjugate PCV 13 11/25/2021 Family History Medical History Relation Name Comments Cancer Father Diabetes Father's Brother Alzheimer's disease Father's Sister Katty Hoff Alzheimer's disease Mother Karli Patten Arthritis Mother Karli Patten Heart attack Mother Karli Patten Parkinsonism Sibling Relation Name Status Comments Father Father's Brother Father's Sister Katty Hoff Mother Karli Patten Sibling Alive Social History Tobacco Use Types Packs/Day Years Used Date Smoking Tobacco: Former Cigarettes 1.2 70.7 0 07/10/1967 - 01/08/2012 Smokeless Tobacco: Never Tobacco Cessation:Counseling Given: Not Answered Alcohol Use Standard Drinks/Week Comments Yes 4 [...] often do you attend chur ch or alevism services? Patient declined 02/02/2024 Do you belong to any clubs o r organizations such as taoist groups, unions, fraternal or athletic groups, or [...] any time in the past 12 m [facility], were you homeless or living in a fdc (including now)? No 02/02/2024 Comments Unknown Sex and Gender Information Value Date Recorded Sex Assigned at Not on file Legal Sex Female 7:08 PM EDT Gender Identity Not on file Sexual Orientation Not on file Last Filed Vital Signs Vital Sign Reading Time Taken Comments Blood Pressure 186/92 12/04/2024 1:39 PM EDT Pulse 97 12/04/2024 1:39 PM EDT Temperature 36.3 C (97.3 F) 12/04/2024 1:39 PM EDT Respiratory Rate 22 12/04/2024 1:39 PM EDT Oxygen Saturation 97% 12/04/2024 1:39 PM EDT Inhaled Oxygen Concentration - - Weight 99.8 kg (220 lb) 12/04/2024 1:39 PM EDT Height 160 cm (5' 3 ) 12/04/2024 1:39 PM EDT Body Mass Index 38.97 12/04/2024 1:39 PM EDT Plan of Treatment Upcoming Encounters Date Type Department Care Team (Late st Contact Info) Description 02/24/2025 10:30 AM EDT Office Visit [facility] [address] [place] [address] Latrell Mckeon MD [address] [place] [address] Health Maintenance Due Date Last Done Comments CT Colonography 1950 FIT-DNA 1950 FIT 1950 FOBT 1950 Lung Cancer Screening Shared Decision Making 1950 Sigmoidoscopy 1950 Mammogram 11/27/2024 11/28/2023, 11/28/2023 Influenza Vaccine (#1) 2025 , 05/03/2022, 04/12/2021, Additional history exists Colonoscopy 10/12/2033 10/13/2023, 10/13/2023 Colorectal Cancer Screening 10/12/2033 Pneumococcal Vaccine: 65+ Years Completed 11/25/2021, 05/16/2019, 01/31/2018 Procedures Procedure Name Priority Date/Time Associated Diagnosis Comments SCANNED LABS Routine 12/16/2024 2:53 PM EDT SCANNED LABS Routine 12/16/2024 1:12 PM EDT SCANNED LABS Routine 12/13/2024 10:13 AM EDT XR HIP 2-3 VIEWS LEFT Routine 12/12/2024 11:07 AM EDT XR HIP LT MIN 2V 12/12/2024 10:3 4 AM EDT MM TOMOSYNTHESIS SCREENING BI 11/28/2023 3:15 PM EDT from Last 3 Months or Most Recently Relevant to Health Maintenance Results * SCANNED LABS (12/16/2024 2:53 PM EDT) Only the most recent of3 resultswithin the time period is included. Latrell Mckeon MD LAB CHG PERFORMABLES Final Resul t * XR HIP 2-3 VIEWS LEFT (12/12/2024 11:07 AM EDT) Anatomical Region Laterality Modality Radiographic Lani ging us Will Woodson NP IMG XR PROCEDURES Final Result * XR HIP LT MIN 2V (12/12/2024 10:34 AM EDT) Anatomical Region Laterality Modality Other 12/12/2024 10:3 4 AM EDT Narrative 12/12/2024 10:37 AM EDT The [address] [address] XRay Report Signed Patient: SHEY BOSS MR#: [id number] : 1950 Acct:[id number] Age/Sex: 74 / F ADM Date: 12/12/24 Loc: RAD Attending Dr: Will Woodson NP Ordering Physician: Will Woodson NP Date of Service: 12/12/24 Procedure(s): XR hip LT min 2V Accession Number(s): [id number] cc: Will Woodson NP; Latrell Mckeon M.D. The [place] [id number] Patient Name: SHEY BOSS MRN: [id number] date: 1950 Sex: F Assigned Patient Location: Current Patient Location: Accession/Order Number: [id number] Exam Date: 12/12/2024 10:32 Report Date: 12/12/2024 10:34 At the request of: WILL WOODSON NP Procedure: XR hip LT min 2V LEFT HIP - 2 views: CLINICAL HISTORY: Left Hip Pain for the past week after patient bent over and felt a pop. COMPARISON: None AP and frog-lateral views were obtained. There is no evidence of fracture or dislocation. The hip joint space is maintained. There is no significant hypertrophy. The SI joint is intact. There are no significant soft tissue abnormalities. XR/XR hip LT min 2V IMPRESSION: NO ACUTE BONY FINDINGS. Impression dictated by: Juliane Narvaez M.D. 12/12/2024 10:34 AM Dictation Location: [place] [address] Electronically authenticated by: [id number] Y Date: 12/12/2024 10:34 Dictated By: Juliane Narvaez M.D. Signed By: 12/12/24 1037 DD/ 1034 TD/TT: Wallpaper Remover Steam: Procedure Note Radiology, Radiologist, - 12/12/2024 [place] [address] XRay Report Signed Patient: SHEY BOSS LMR#: [id number] : 1950cct:[id number] Age/Sex: 74 / FADM Date: 12/12/24 Loc: RAD Attending Dr: Will Woodson NP Ordering Physician: Will Woodson NP Date of Service: 12/12/24 Procedure(s): XR hip LT min 2V Accession Number(s): [id number] cc: Will Woodson NP; Latrell Mckeon M.D. [place] [address] Patient Name: SHEY BOSS MRN: [id number]:[id number] date: 1950 Sex: F Assigned Patient Location: PM Current Patient Location: PM Accession/Order Number: [id number] Exam Date: 12/12/2024 10:32 Report Date: 12/12/2024 10:34 At the request of: WILL WOODSON NP Procedure: XR hip LT min 2V LEFT HIP - 2 views: CLINICAL HISTORY: Left Hip Pain for the past week after patient bent overand felt a pop. COMPARISON: None AP and frog-lateral views were obtained. There is no evidence of fractureor dislocation. The hip joint space is maintained. There is no significant hypertrophy. The SI joint is intact. There are no significant softtissue abnormalities. XR/XR hip LT min 2V IMPRESSION: NO ACUTE BONY FINDINGS. Impression dictated by: Juliane Narvaez M.D. 12/12/2024 10:34 AM Dictation Location: [place] [address] Electronically authenticated by: [id number] Y Date: 0:34 Dictated By: Juliane Narvaez M.D. Signed By:12/12/24 1037 DD/ 1034 TD/TT: Wallpaper Remover Steam: us Generic External Data Provider [facility] Final Result * MM TOMOSYNTHESIS SCREENING BI (11/28/2023 3:15 PM EDT) Anatomical Region Laterality Modality Other 11/28/2023 3:15 PM EDT Narrative 11/28/2023 3:16 [place] [address] Mammography Report Signed Patient: SHEY BOSS MR#: [id number] : 1950 Acct:[id number] Age/Sex: 73 / F ADM Date: 11/28/23 Loc: MAMMO Attending Dr: Latrell Mckeon M.D. Ordering Physician: Latrell Mckeon M.D. Results: Date of Service: 11/28/23 Follow Up: Procedure(s): MM tomosynthesis screening BI Accession Number(s): [id number] cc: Latrell Mckeon M.D. Patient Name: SHEY BOSS MR#: [id number] : 1950 Exam Date: 11/28/2023 Ordering Doctor: [...] lung cancer at age 46. LOCATION: The [facility] BREAST COMPOSITION: The breasts are almost [...] Signed By: 11/28/23 1516 DD/ 1515 TD/TT: Wallpaper Remover Steam: Procedure Note Radiology, Radiologist, - 11/28/[address] [address] Mammography Report Signed Patient: SHEY BOSS LMR#: [id number] : 1950cct:[id number] Age/Sex: 73 / FADM Date: 11/28/23 Loc: MAMMO Attending Dr: Latrell Mckeon M.D. Ordering Physician: Latrell Mckeon M.D.Results: Date of Service: 11/28/23Follow Up: Procedure(s): MM tomosynthesis screening BI Accession Number(s): [id number] cc: Latrell Mckeon M.D. Patient Name: SHEY BOSS MR#: [id number] : 1950 Exam Date: 11/28/2023 Ordering Doctor: [...] lung cancer at age 46. LOCATION: The [facility] BREAST COMPOSITION: The breasts are almost [...] M.D. Signed By:11/28/23 1516 DD/ 1515 TD/TT: Wallpaper Remover Steam: Latrell Mckeon MD [facility] Final Result from Last 3 Months or Most Recently Relevant to Health [place] [phone] [employer] Care Teams Benzol Still Operator Relationship Specialty Start Date End Date Latrell Mckeon MD [address] [place] [phone] PCP - General Family Medicine 08/05/23 Latrell Mckeon MD [address] [place] [address] PCP - ACO Reach 08/16/24 Simoara Fitzgerald DO [address] [facility] [place] [address] Referring Physician Neurology 05/30/24
--- OUTSIDE RECORDS SUMMARY | 2025-01-09 07:59 | XMS_ITS | Clinical Summary ---
Author Organization [facility] Address [id number] [address] [place] [address] Care Team Providers Care Payroll Associate Name Role Phone Ltarell Mckeon MD Primary Care Provider [phone] Allergies No known active allergies Medications zolpidem (AMBIEN) 10 mg tablet Take 10 mg by mouth daily. 10/13/2020 Active famotidine (PEPCID) 40 mg tablet Take 40 mg by mouth 2 (two) times a day. 11/08/2020 Active pantoprazole (PROTONIX) 40 mg EC tablet Take 40 mg by mouth daily. Active qancnwec-qblb-M A-calcium &mins (THERAGRAN-M) 9 mg iron-400 mcg tablet Take 1 tablet by mouth daily. Active vitamin E 200 units capsule Take 200 Units by mouth daily. Active prasterone, dhea, (DHEA) 25 mg capsule Take 50 mg by mouth daily. Active cholecalciferol (VITAMIN D3) 1,000 units tablet Take 1,000 Units by mouth daily. Active cetirizine (ZyrTEC) 10 mg tablet Take 10 mg by mouth daily. Allergy relief Active safflower oil/linoleic acid,co (CLA ORAL) Take by mouth daily. Active losartan (COZAAR) 25 mg tablet Take 25 mg by mouth daily. 03/24/2021 Active atorvastatin (LIPITOR) 40 mg tablet Take 40 mg by mouth daily. 03/12/2021 Active baclofen (LIORESAL) 10 mg tablet Take 10 mg by mouth daily. 02/17/2021 Active Family History Medical History Relation Name Comments COPD Father Cancer Father Alzheimer's disease Mother Heart disease Mother Relation Name Status Comments Father Mother Social History Tobacco Use Types Packs/Day Years Used Date Smoking Tobacco: Former Cigarettes Q uit: 2011 Smokeless Tobacco: Never Alcohol Use Standard Drinks/Week Comments Yes 0 (1 standard drink = 0.6 oz pur e alcohol) social Comments No Sex and Gender Information Value Date Recorded Sex Assigned at Not on file Legal Sex Female 10:40 AM EDT Gender Identity Not on file Sexual Orientation Not on file Last Filed Vital Signs Vital Sign Reading Time Taken Comments Blood Pressure 175/98 12/09/2020 12:37 PM EDT Pulse 73 12/09/2020 12:37 PM EDT Temperature 36.3 C (97.3 F) 12/09/2020 11:07 AM EDT Respiratory Rate 18 12/09/2020 12:37 PM EDT Oxygen Saturation 98% 12/09/2020 12:37 PM EDT Inhaled Oxygen Concentration - - Weight 103.9 kg (229 lb) 12/09/2020 8:19 AM EDT Height 160 cm (5' 3 ) 12/09/2020 8:19 AM EDT Body Mass Index 40.57 12/09/2020 8:19 AM EDT Plan of Treatment Health Maintenance Due Date Last Done Comments Depression Screening 1962 Tobacco Screening 1962 Adult BMI Screening 09/21/1969 DTaP,Tdap and Td Vaccines (1 - Tdap) 09/21/1970 Zoster (Shingles) Vaccine (1 of 2) 09/21/2001 Fall Risk Screening 09/21/2016 COVID-19 Vaccine (2023-2 5 season) 2024 04/12/2021, 09/14/2020, 08/27/2020 Influenza Vaccine 03/10/2025 04/12/2021, , 05/16/2019, Additional history exists Medical Devices Not on file Insurance MEDICARE [employer] Care Teams Payroll Associate Relationship Specialty Start Date End Date Latrell Mckeon MD PCP - General Family Medicine 11/09/20
--- OUTSIDE RECORDS SUMMARY | 2025-01-09 07:59 | XMS_ITS | Encounter Summary ---
Author Organization [facility] Address [address] [place] [address] Care Team Providers Care Parachute Manufacturing Supervisor Name Role Phone Latrell Mckeon MD Primary Care Provider [phone] Siomara Fitzgerald DO Unavailable Latrell Mckeon MD Unavailable Encounter Details Date Type Department Care Team (Late st Contact Info) Description 03/27/2024 Orders Only [facility] [address] [place] [address] Katie Hairston MD [address] [place] [address], [address] [address] Social History Tobacco Use Types Packs/Day Years [...] often do you attend chur ch or rastafari services? Patient declined 02/02/2024 Do you belong to any clubs o r organizations such as restoration groups, unions, fraternal or athletic groups, or [...] Recorded Patient Health Questionnaire-2 Score 0 08/11/2023 [facility] - Occupational Stress Questionnaire Answer Date Recorded [...] were you homeless or living in a care home (including now)? No 02/02/2024 Comments Unknown Sex and Gender Information Value Date Recorded Sex Assigned at Not on file Legal Sex Female 7:08 PM EDT Gender Identity Not on file Sexual Orientation Not on file documented as of this encounter Plan of Treatment Upcoming Encounters Date Type Department Care Team (Late st Contact Info) Description 02/24/2025 10:30 AM EDT [facility] [address] [place] [address] Latrell Mckeon MD [address] [place] [address] documented as of this encounter Procedures Procedure Name Priority Date/Time Associated Diagnosis Comments XR ESOPHAGUS-BARIUM STUDY Routine 03/26/2024 9:40 AM EDT documented in this encounter Results * XR ESOPHAGUS-BARIUM STUDY (03/26/2024 9:40 AM EDT) Anatomical Region Laterality Modality Radiographic Lani ging us Katie Hairston MD IMG XR PROCEDURES Final Resu lt documented in this encounter Visit Diagnoses Not on filedocumented in this encounter Care Teams Parachute Manufacturing Supervisor Relationship Specialty Start Date End Date Latrell Mckeon MD [address] [place] [address] PCP - General Family Medicine 08/05/23 Latrell Mckeon MD [address] [place] [address] PCP - ACO Reach 08/16/24 Siomara Fitzgerald DO [address] [place] [address] Referring Physician Neurology 05/30/24 documented as of this encounter
--- OUTSIDE RECORDS SUMMARY | 2025-01-09 07:59 | XMS_ITS | Clinical Summary ---
Author Organization [facility] Address [address] [place] [id number] Care Team Providers Care Senior Nuclear Medicine Technologist Name Role Phone Katie Hairston MD Unavailable [phone] Latrell Mckeon MD Primary Care Provider [phone] Allergies No known active allergies Medications Vitamin E, dl, acetate, (VITAMIN E) 400 unit capsule Take 1 capsule by mouth. Active aspirin 81 mg cap Take 81 mg by mouth. 03/05/2021 Active atorvastatin (LIPITOR) 40 mg tablet Take 40 mg by mouth. 03/12/2021 Active calcium carbonate (CALTRATE) 600 mg calcium (1,500 mg) tab Take 1 tablet by mouth. Active Cholecalciferol , Vitamin D3, 25 mcg (1,000 unit) cap Take 1 capsule by mouth. Active donepezil (ARICEPT) 5 mg tablet Take 5 mg by mouth daily at bedtime. Active famotidine (PEPCID) 40 mg tablet Take 1 tablet by mouth. 11/08/2020 Active fluticasone (FLONASE) 50 mcg/actuation nasal spray 2 Sprays once daily. 09/06/2023 Active losartan (COZAAR) 50 mg tablet Take 50 mg by mouth. 02/09/[address] (PROTONIX) 40 mg tablet Take 40 mg by mouth. 03/03/2021 Active Zolpidem (AMBIEN CR) 12.5 mg CR tablet Take 12.5 mg by mouth. 03/03/2021 Active tiotropium bromide (SPIRIVA RESPIMAT INHALATION) Inhale as instructed. Active ALBUTEROL INHALATION Inhale as instructed. Active acetaminophen (TYLENOL EXTRA STRENGTH) 500 mg tablet Take 2 tablets by mouth every 6 hours as needed for pain. 07/26/2024 Active docusate sodium (COLACE) 100 mg capsule Take 1 capsule by mouth two times a day as needed for constipation . 07/26/2024 Active Active Problems Problem Noted Date Diagnosed Date Electrolyte abnormality 07/26/2024 Obesity, Class II, BMI 35-39.9 07/24/2024 S/P repair of paraesophageal hernia 07/24/2024 Acute postoperative pain 07/24/2024 HTN (hypertension) 07/23/2024 Assessment & Plan (07/23/2024 1:44 PM EST): -Managed on losartan -BP today 152/73 -EKG reviewed, NSR Obesity 07/23/2024 Assessment & Plan (07/23/2024 1:51 PM EST): -Body mass index is 37.45 kg/m . Screening for malignant neoplasm of colon 2024 Transient ischemic attack 07/23/2024 GERD (gastroesophageal reflux disease) Assessment & Plan (07/23/2024 1:45 PM EST): -Managed on PPI, Pepcid Hiatal hernia 07/23/2024 Former smoker 07/23/2024 Assessment & Plan (07/23/2024 1:52 PM EST): -Smoked from age [age] (quit in 2011), 1/2-2 PPD Abnormal MRI of head 07/23/2024 Assessment & Plan (07/23/2024 1:47 PM EST): -03/15/24 MRI brain Mild chronic microvascular ischemic and involutional changes. -Managed on aspirin, please note last dose was 07/22/24 PM Memory loss 07/23/2024 Assessment & Plan (07/23/2024 1:49 PM EST): -Follows OP with PCP -Managed on donepezil Chronic back pain 07/23/2024 Assessment & Plan (07/23/2024 1:49 PM EST): -Follows OP with pain management Paraesophageal hernia 04/29/2024 Stroke 03/03/2024 Dysphagia 02/23/2024 Senile dementia 02/09/2024 Prediabetes 08/13/2023 COPD (chronic obstructive pulmonary disease) 08/2023 Dyslipidemia 08/11/2023 Assessment & Plan (07/23/2024 1:45 PM EST): -Continue statin Encounter for long-term (current) use of medicat ions 08/11/2023 Lower extremity edema 08/11/2023 EDWIN (obstructive sleep apnea) 08/11/2023 Assessment & Plan (07/23/2024 1:43 PM EST): -Compliant with CPAP Osteopenia of lumbar spine 08/11/2023 Primary insomnia 08/11/2023 Assessment & Plan (07/23/2024 1:50 PM EST): -Managed on Ambien Primary osteoarthritis of both knees 08/11/2023 Seasonal allergic rhinitis due to pollen 024 TIA (transient ischemic attack) 08/11/2023 Assessment & Plan (07/23/2024 1:45 PM EST): -Noted in EMR however patient denies Hiatal hernia with gastroeso phageal reflux disease without esophagitis 08/11/2023 Psychophysiologic insomnia 02/23/2022 Personal history of urinary (tract) infections 0 02/23/2022 Cough, unspecified 02/22/2022 Chronic obstructive pulmonary disease 11/04/2021 Assessment & Plan (07/23/2024 1:43 PM EST): -Continue inhalers, has not needed to use albuterol in the past 3-4 months -SpO2 99% on RA -Follows OP with PCP -Patient in NAD -Admits to chronic exertional dyspnea, not new or worsening -Former heavy smoker -CXR pending Contact with and (suspected) exposure to covid-1 9 11/04/2021 Shortness of breath 11/04/2021 Dyspnea, unspecified 11/02/2021 Lumbar radiculopathy 09/16/2021 Abdominal hernia 09/16/2021 Other specified disorders of bone density and structure, other site 09/16/2021 Asymptomatic menopausal state 09/16/2021 Pain in right ankle and joints of right foot 04/2022 Resolved Problems Problem Noted Date Diagnosed Date Resolved Date BMI 39.0-39.9,adult 07/23/2024 07/23/19 25 Class 2 severe obesity due t o excess calories with serious comorbidity and body mass index (BMI) of 38.0 to 38.9 in adult 03/03/2024 Essential hypertension, benign 08/11/2023 07/23/2024 Morbid obesity due to excess calories 08/11/2023 07/23/2024 Hypertension 09/16/2021 07/23/2024 Morbid (severe) obesity due to excess calories 09/16/2021 07/23/2024 Family History Medical History Relation Comments Anesthesia Problems No Family History Social History Tobacco Use Types Packs/Day Years Used Date Smoking Tobacco: Former Cigarettes 2 1967 Smokeless Tobacco: Never Tobacco Cessation:Counseling Given: Not Answered Comments:Age 17 - 61, 1/2 - 2 PPD, quit while at 2 PPD Alcohol Use Standard Drinks/Week Comments Not Currently 0 (1 standard drink = 0.6 oz pur e alcohol) Area Deprivation Index Answer Date Monster rded National Score (1-100), lower number is lower ri sk 91 04/29/2024 State Score (1-10), lower number is lower risk 9 04/29/2024 Data from: https://www.neighborhoodatlas.medicine.[facility].edu/. Last address used for calculation [address] 04/29/2024 Comments No Sex and Gender Information Value Date Recorded Sex Assigned at Not on file Legal Sex Female 3:17 PM EDT Gender Identity Female 04/23/2024 1:21 PM EDT Sexual Orientation Not on file Last Filed Vital Signs Vital Sign Reading Time Taken Comments Blood Pressure 151/72 08/07/2024 2:04 PM EST Pulse 75 08/07/2024 2:04 PM EST Temperature 36.4 C (97.6 F) 08/07/2024 2:04 PM EST Respiratory Rate 18 07/26/2024 9:55 AM EST Oxygen Saturation 98% 07/26/2024 9:55 AM EST Inhaled Oxygen Concentration - - Weight 92.1 kg (203 lb) 08/07/2024 2:04 PM EST Height 162.6 cm (5' 4 ) 08/07/2024 2:04 PM EST Body Mass Index 34.84 08/07/2024 2:04 PM EST Plan of Treatment Health Maintenance Due Date Last Done Comments Annual PCP Team Chronic Dise ase Visit 09/21/1969 Hepatitis C Screening 09/21/1969 DTaP,Tdap,Td Vaccine (1 - Tdap) 09/21/[address] Colonography 09/21/1996 Cologuard (FIT-DNA) 09/21/1996 Colonoscopy 09/21/1996 Colorectal Cancer Screening 09/21/1996 Fecal Occult Blood 09/21/1996 Lipid Screening 09/21/1996 Sigmoidoscopy 09/21/1996 Shingrix Vaccine (1 of 2) 09/21/2001 Medicare Annual Wellness Visit 09/07/2016 Bone Density Screening 09/21/2016 Covid-19 Vaccine (2023-2 5 season) 2024 03/27/2023, 05/03/2022, 04/12/2021, Additional history exists Advance Directive Discussion 07/10/2024 Influenza Vaccine (#1) 2025 , 05/03/2022, 04/12/2021, Additional history exists Diabetes Screening 07/26/2027 07/26/2024, 0 07/24/2024, 07/23/2024 Pneumococcal Vaccine: 50+ Completed 2021, 05/16/2019, 01/31/2018 RSV Vaccine Completed 03/27/2023 Medical Devices Implanted Type Area Thermo Processor Device Identifier Shelf Expiration Date Model / Serial / Lot [employer] Thk1.65mm Ptfe 4x.5in Cardiovascular Sterile - [id number] Implanted:Qty: 1 on 07/24/2024 at [facility] Implant N/A: Abdomen BARD PERIPHERAL VASCULAR 01/04/2029 [id number] / / [id number] Procedures Procedure Name Priority Date/Time Associated Diagnosis Comments BASIC METABOLIC PANEL Routine 07/26/2024 1:13 AM EST from Last 3 Months or Most Recently Relevant to Health Maintenance Results * (ABNORMAL) BASIC METABOLIC PANEL (07/26/2024 1:13 AM EST) Glucose 112(H) 74 - 99 mg/dL 07/26/2024 2:[address] [facility] Comment: The [place] Diabetes Association (ADA) provides guidance for cutoff [...] Standards of Medical Care in Diabetes 2016, [place] Diabetes Association. Diabetes Care. 2016.39(Suppl 1). BUN 10 7 - 21 mg/dL 07/26/2024 2:33 AM [facility] Creatinine 0.92 0.58 - 0.96 mg/dL 07/26/2024 2:33 AM [facility] Sodium 143 136 - 144 mmol/L 07/26/2024 2:33 AM [facility] Potassium 3.4(L) 3.7 - 5.1 mmol/L 07/26/2024 2:33 AM [facility] Chloride 107 98 - 107 mmol/L 07/26/2024 2:33 AM [facility] CO2 24 22 - 30 mmol/L 07/26/2024 2:33 AM [facility] Anion Gap 12 8 - 15 mmol/L 07/26/2024 2:33 AM [facility] Calcium, Total 9.0 8.5 - 10.2 mg/dL 07/26/2024 2:33 AM [facility] Estimated Glomerular Filtration Rate 66 >=60 mL/min/1.7 3m 07/26/2024 2:33 AM [facility] Comment:Estimated Glomerular Filtration Rate (eGFR) is calculated using the 2020 CKD-EPI creatinine equation. This equation utilizes serum creatinine, sex, and age as parameters. The creatinine assay has traceable calibration to isotope dilution- mass spectrometry. Refer to KDIGO guidelines for clinical interpretation. In patients with unstable renal function, e.g. those with acute kidney injury, the eGFR may not accurately reflect actual GFR. Blood BLOOD SPECIMEN / Unknown Venipuncture / Unknown 07/26/2024 1:13 AM EST 07/26/2024 1:22 AM EST us [facility] Final Result [facility] [address] [place] [address], [place] from Last 3 Months or Most Recently Relevant to Health Maintenance Insurance [facility] MEDICARE MEDICARE RAILROAD Care Teams Senior Nuclear Medicine Technologist Relationship Specialty Start Date End Date Latrell Mckeon MD [address] [place] [address] PCP - General Family Medicine 07/01/24 Katie Hairston MD [address] [place] [address] [address] [place] [address] Internal Medicine 04/02/24
--- OUTSIDE RECORDS SUMMARY | 2025-01-09 08:01 | XMS_ITS | CCD ---
Author Organization [facility]ini[facility] Care Team Providers Care Overhead Foreman Name Role Phone FREDY, DR CHAPARRO Attending [...] Unavailable NADERER, DR LATRELL Flood Consulting Unavailable HAY, DR CHAPARRO Consulting Unavailable NADEREOrtega, DR LATRELL Flood Primary Care Unavailable FREDY, DR CHAPARRO Admitting Unavailable FREDY, DR CHAPARRO Attending Unavailable Latrell Jack MD Primary Care Provider GUERO, LATRELL Primary Care Physician Pa WEBB Referring Unavailable NILL, Pa Vivas Attending Unavailable NILPa Diaz Admitting Unavailable Dafne Spears Referring Unavaila ble Sarmini, Leos Talal Attending Unavaila ble Sarmini, Leos Talal Admitting Unavaila ble Sarmini, Leos Talal Referring Unavaila ble Sarmini, Leos Talal Attending Unavaila ble Sarmini, Leos Talal Admitting Unavaila ble Sarmini, Leos Talal Attending Unavaila ble Pa WEBB Attending Unavailable LATRELL JACK Referring Unavailable Yovanny OLIVO, Dafne Talal Unavailable Diomedes Fitzgerald DO Unavailable Giedraitis , Andrius Vytautas Attending Unavailable Giedraitis , Andrius Vytautas Attending Unavailable Giedraitis , Andrius Vytautas Attending Unavailable Giedraitis , Andrius Vytautas Attending Unavailable Saundra OLIVO, Andrius Vytautas Attending Unavailable Latrell Jack MD Primary Care Provider Yovanny OLIVO, Dafne Hwang Unavailable LATRELL JACK A Primary Care Unavailable BEFFA, XAVIER MAYFIELD Referring Unava ilable NADERER, LATRELL A Primary Care Unavailable BEXAVIER MANUEL Referring Unava ilable KATARZYNA SNYDER Attending Unavailable BARI CASTILLO Referring Unavailable NADERER, LATRELL A Primary Care Unavailable NADERER, LATRELL A Primary Care Unavailable BEXAVIER MANUEL Referring Unava ilable SARMINI, LEOS TALAL Referring Unavaila ble BEFFA, XAVIER MAYFIELD Attending Unava ilable NADERER, LATRELL A Primary Care Unavailable JAMIL DELACRUZ Referring Unavailable KATARZYNA SNYDER Referring Unavailable NADERER, LATRELL A Primary Care Unavailable BEMAR, XAVIER MAYFIELD Attending Unava ilable XAVIER BOYD Admitting Unava ilable Latrell Jack MD Unavailable GUERO, LATRELL Attending Unavailable SANDRA ARCOS Attending Unavailable GUERO, LATRELL Attending Unavailable DIOMEDES FITZGERALD Attending Unavailable LATRELL JACK Referring Unavailable DIOMEDES FITZGERALD Referring Unavailable LATRELL JACK Attending Unavailable MAO MORROW Attending Unavailable NADERELATRELL Vivas Attending Unavailable SANDRA ARCOS Attending Unavailable Elmer Kohli Attending Unavailable Elmer Kohli Attending Unavailable Latrell Jack MD Primary Care Provider [phone] Erik Kim MD Admit Provider Erik Kim MD Attending Provider [phone] Erik Kim Admitting Unavailab Tra Chew Attending Unavailable Latrell Jack Primary Care Unavailable Allergies Allergy Classification Reported Allergen(s) Allergy Type Date of Onset Reaction(s) Facility (1 source) Amino Acids Drug Allergy [facility] Repository Medications Current Medications Medication Drug Class(es) Dates Sig (Normalized) Sig (Original) acetaminophen 500 mg oral tablet (11 sources) Start: 07-26-2024 take 1 tablet by [...] daily as needed for pain HYDROcodone-acetami nophen ([place]) 5-325 MG tablet Indications: Degenerative lumbar spinal [...] 0, Prophylaxis Start Date: 03/05/21 Status: Ordered Repeat number: 1 atorvastatin 40 mg oral tablet (20 sources) HMG-CoA Reductase Inhibitor Start: 03-12-2021 take 1 tablet by mouth once daily Atorvastatin 40 mg tablet Active 40 MG PO Daily December 12, 2024 12:00am baclofen 10 mg oral tablet (16 sources) gamma-Aminobutyr ic Acid-ergic Agonist take 5 mg by mouth in the morning baclofen (Lioresal) 10 MG tablet Take 5 mg by mouth in the morning and 5 mg before bedtime. Active Calcium (4 sources) Phosphate Binder, Calcium Start: 02-26-2024 take 1 tablet by mouth once daily Calcium Calcium, 1 tab, Oral, Daily Start Date: 02/26/24 Status: Ordered Repeat number: 1 Start: 02-26-2024 take 1 tablet by mouth once da donn Calcium Calcium, 1 tab, Oral, Daily Start [...] Active docusate sodium 100 mg oral capsule (11 sources) Start: 07-26-2024 Docusate Sodiu m (DSS) 100 MG capsule Take 100 mg by mouth every 12 (twelve) hours if needed 07/26/2024 Active Start: 07-26-2024 take [address] [facility] every twelve hours as needed docusate sodium (COLACE) 100 mg capsule Take 1 capsule by mouth two times a day as needed for constipation. 07/26/2024 Active donepezil hydrochloride 10 mg oral tablet (20 sources) Start: 05-30-2024 End: 05-30-2025 take 1 tablet by mouth at bedtime Donepezil 10 mg tablet Active 10 MG PO Bedtime December 12, 2024 12:00am Start: 02-23-2024 End: 08-27-2024 donepezil 5 mg Tab 30 EA, 0 Refill(s), TAKE 1 TABLET BY MOUTH AT BEDTIME, Refills(s) 0 Start Date: 02/23/24 Status: Ordered Repeat number: 1 famotidine 40 mg oral tablet (20 sources) Histamine-2 Receptor Antagonist Start: 11-08-2020 take 1 tablet by mouth once daily at bedtime famotidine 40 mg Tab 40 mg = 1 tab(s), Oral, Once a day (at bedtime), Refills(s) 0, Control of stomach acid Start Date: 03/03/21 Status: Ordered Repeat number: 1 Start: 11-08-2020 famotidine (Pe pcid) 40 MG tablet Indications: Hiatal hernia with gastroesophageal reflux disease without esophagitis TAKE 1 TABLET TWICE DAILY 180 tablet 3 05/15/2024 Active fluticasone propionate 0.05 mg/actuat metered dose nasal spray (20 sources) Corticosteroid Start: 12-12-2024 Fluticasone Pr opionate 50 mcg/actuation spray,suspension Active 2 SPRAY INTRANASAL Daily December 12, 2024 12:00am Start: 03-26-2024 take 2 spray(s) nasa l route once daily fluticasone (Flonase) 50 MCG/ACT nasal spray Indications: Seasonal allergic rhinitis due to pollen USE 2 SPRAYS IN EACH NOSTRIL DAILY 48 mL 5 03/26/2024 Active Start: 09-06-2023 fluticasone (F LONASE) 50 mcg/actuation nasal spray 2 Sprays once daily. 09/06/2023 Active Start: 09-06-2023 Flonase 0.05 m g/inh Luckey 2 spray(s), Nasal, Daily, Refill(s) 0, Dry nasal passages Start Date: 09/06/23 Status: Ordered Repeat number: 1 Start: 06-21-2023 End: 03-26-2024 take 2 spray(s) nasal route in the morning fluticasone (Flonase) 50 MCG/ACT nasal spray Administer 2 sprays into each nostril in the morning. 06/21/2023 03/26/2024 Discontinued losartan potassium 50 mg oral tablet (20 sources) Angiotensin 2 Receptor Martin Start: 12-12-2024 take 1 tablet by mouth twice daily Losartan 50 mg tablet Active 50 MG PO Twice daily December 12, 2024 12:00am Start: 02-09-2024 End: 06-13-2024 take 1 tablet [...] blood pressure Start Date: 09/06/23 Status: Ordered Repeat number: 1 take 1 tablet by jennifer th once daily losartan (Cozaar) 25 MG tablet Take 1 tablet by mouth 1 (one) time each day at the same time 0 Active methocarbamol 750 mg oral tablet (6 sources) Muscle Relaxant Start: 12-04-2024 take 1 tablet by mouth four times daily as needed for pain Methocarbamol 750 mg tablet Active 750 MG PO Four times daily as needed for pain December 12, 2024 12:00am Start: 12-01-2024 End: 12-04-2024 methocarbamol (Robaxin) 500 MG tablet 12/01/2024 12/04/2024 Discontinued (Reorder) mirtazapine 7.5 mg oral tablet (1 source) Start: 12-16-2024 take 1 tablet by mouth once daily at bedtime Mirtazapine 7.5 mg Tablet Active 7.5 MG PO Daily at bedtime 30 30 December 16, 2024 12:00am Multiple Vitamin (multivitamin) capsule (19 sources) take 1 capsule by mouth once daily Multiple Vitamin (multivitamin) capsule Take 1 capsule by mouth Daily Active ondansetron 4 mg oral tablet (1 source) Serotonin-3 Receptor Antagonist Start: 07-26-2024 End: 08-02-2024 take 1 tablet by mouth every eight hours as needed ondansetron (Zofran) 4 MG tablet Take 4 mg by mouth every 8 (eight) hours if needed 07/26/2024 08/02/2024 Active oxyCODONE hydrochloride 5 mg oral tablet (4 sources) Opioid Agonist Start: 07-26-2024 End: 08-27-2024 take 1 tablet by mouth every six hours as needed for pain and pain oxyCODONE (Roxicodone) 5 MG immediate release tablet Take 5 mg by mouth every 6 (six) hours if needed for moderate pain or severe pain 07/26/2024 08/27/2024 Discontinued pantoprazole 40 mg delayed release oral tablet (20 sources) Proton Pump Inhibitor Start: 03-03-2021 End: 06-13-2024 take 1 tablet by mouth once daily Pantoprazole [address] Tab 40 mg = 1 tab(s), Oral, Daily, Refills(s) 0, Control of stomach acid Start Date: 03/03/21 Status: Ordered Repeat number: 1 predniSONE 50 mg oral tablet (4 sources) Start: 12-04-2024 End: 12-10-2024 take 1 tablet by mouth once daily [...] and inhale in the morning. 30 capsule 10/09/2023 10/29/2024 Discontinued Start: 09-06-2023 take 1 [...] (SPIRIVA RESPIMAT INHALATION) Inhale as instructed. Active Tiotropium [place] (Spiriva With Handihaler) 18 mcg capsule, w/inhalation device (1 source) Start: 12-12-2024 take 1 capsule by inhalation once daily Tiotropium [place]field (Spiriva With Handihaler) 18 mcg capsule, w/inhalation device Active 1 CAP INHALATION Daily December 12, 2024 12:00am Vitamin D3 1000 intl units (25 mcg) Tab (5 sources) Start: 09-06-2023 take 1 tablet by mouth once daily Vitamin D3 1000 intl units (25 mcg) Tab 25 mcg = 1 tab(s), Oral, Daily, Refills(s) 0, Prophylaxis Start Date: 09/06/23 Status: Ordered Repeat number: 1 Start: 09-06-2023 take 1 tablet by jennifer once daily Vitamin D3 1000 intl units (25 mcg) Tab 25 mcg = 1 tab(s), Oral, Daily, Refills(s) 0, Prophylaxis Start Date: 09/06/23 Status: Ordered Vitamin E (20 sources) Start: 02-26-2024 vitamin E Oral , Daily, Refills(s) 0, Prophylaxis Start Date: 02/26/24 Status: Ordered Repeat number: 1 Start: 02-26-2024 vitamin E Oral , Daily, Refills(s) 0, Prophylaxis Start Date: 02/26/24 Status: Ordered Start: 02-26-2024 vitamin E Oral , Refills(s) 0 Start Date: 02/26/24 Status: Ordered take 1 capsule by mo [facility] once daily alpha tocopherol (Vitamin E) 400 units capsule Take 1 capsule by mouth 1 (one) time each day at the same time Active Vitamin E, dl, a cetate, (VITAMIN E) 400 unit capsule Take 1 capsule by mouth. Active zolpidem tartrate 10 mg oral tablet (20 sources) gamma-Aminobutyric Acid-ergic Agonist Start: 12-12-2024 take 1 tablet by mouth at bedtime as needed for sleep Zolpidem 10 mg tablet Active 10 MG PO Bedtime as needed for sleep December 12, 2024 12:00am Start: 07-31-2024 End: 10-29-2024 take 1 tablet by mouth at bedtime as needed for sleep zolpidem (Ambien) 10 MG tablet Indications: Primary insomnia TAKE 1 TABLET BY MOUTH AT BEDTIME NEEDED FOR SLEEP 90 tablet 10/29/2024 Active Start: 03-03-2021 End: 07-31-2024 take 1 tablet by mouth once daily at bedtime as needed for sleep zolpidem 12.5 mg oral ER Tab 12.5 mg = 1 tab(s), Oral, Once a day (at bedtime), PRN for sleep, Refills(s) 0 Start Date: 03/03/21 Status: Ordered Repeat number: 1 zonisamide 50 mg oral capsule (9 sources) Anti-epileptic Agent Start: 12-12-2024 take 1 capsule by mouth twice daily Zonisamide 50 mg capsule Active 50 MG PO Twice daily December 12, 2024 12:00am Start: 08-07-2024 take 2 capsules by m outh once daily zonisamide (Zonegran) 50 MG capsule [...] OR WHEEZING Start Date: 02/23/24 Status: Ordered Repeat number: 1 Start: 02-09-2024 albuterol (2.5 MG/3ML) 0.083% nebulizer solution Indications: Chronic obstructive pulmonary disease, unspecified COPD type (CMS/HCC) Take 3 mL (2.5 mg) by nebulization every 4 (four) hours if needed for wheezing or shortness of breath 150 mL 3 02/09/2024 Active ALBUTEROL INHALA TION Inhale as instructed. Active One A Day Women's Complete (5 sources) Start: 03-03-2021 One A Day Wome n's Complete Oral, Daily, Refill(s) 0, Prophylaxis Start Date: 03/03/21 Status: Ordered Repeat number: 1 Start: 03-03-2021 One A Day Wome n's Complete Oral, Daily, Refill(s) 0, Prophylaxis Start Date: 03/03/21 Status: Ordered Problems Active Problems Problem Classification Problem Date Documented Da te Episodic/Chronic Abdominal hernia (20 sources) Diaphragmatic hernia without obstruction or gangrene; Translations: [Gastroesophageal reflux disease with hiatal hernia] Onset: 2 Resolved: 5 08-11-2023 Episodic Acute cerebrovascular disease (20 sources) Cerebrovascular accident; [...] [Dyslipidemia] Onset: 2 08-11-2023 Chronic Esophageal disorders (11 sources) Gastroesophageal reflux disease; Translations: [Gastroesophageal reflux [...] insomnia] Onset: 2 08-11-2023 Chronic Mood disorders (7 sources) 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 features; Translations: [Major depressive disorder, recurrent severe without psychotic features] Onset: 5 04-12-2024 Chronic Osteoarthritis (20 sources) Primary gonarthrosis, bilateral; Translations: [Bilateral primary osteoarthritis of knee] Onset: 4 08-11-2023 Chronic Other aftercare (1 source) Postoperative visit; Translations: [Encounter for other specified surgical aftercare] 08-07-2024 Episodic Other aftercare (1 source) Encounter for other specified surgical aftercare; Translations: [Postoperative visit] Onset: 5 Episodic Other gastrointestinal disorders (20 sources) Dysphagia; Translations: [Dysphagia, unspecified] Onset: 4 Episodic Other hereditary and degenerative nervous system [...] obesity due to excess calories] Onset: 4 Resolved: 5 08-11-2023 Chronic Other nutritional; endocrine; and metabolic disorders (2 sources) Body mass index 40+ - severely obese; Translations: [Body mass index (BMI) 40.0-44.9, adult] 08-11-2023 Chronic Other nutritional; endocrine; and metabolic disorders (8 sources) Body mass index 30+ - obesity; Translations: [Body mass index (BMI) 39.0-39.9, adult] Onset: 5 Resolved: 5 09-12-2023 Chronic Other nutritional; endocrine; and metabolic disorders (20 sources) Severe obesity; Translations: [Class 2 severe obesity due to excess calories with serious comorbidity and body mass index (BMI) of 38.0 to 38.9 in adult (CMS/FORMERLY [facility])] Onset: 4 Resolved: 5 05-15-2024 Chronic Other [...] 4 08-11-2023 Chronic Other upper respiratory disease (5 sources) Seasonal allergic rhinitis 09-06-2023 Chronic Residual codes; unclassified (2 sources) Obstructive sleep apnea (adult) (pediatric); Translations: [OBSTRUCTIVE SLEEP APNEA] Onset: 2 Chronic Residual codes; unclassified (20 sources) Obstructive sleep apnea syndrome; Translations: [Obstructive sleep apnea (adult) (pediatric)] Onset: 4 08-11-2023 Chronic Residual codes; unclassified (5 sources) Sleep apnea 03-03-2021 Chronic Residual codes; unclassified (6 sources) Insomnia; Translations: [Other insomnia] 04-12-2024 Chronic Residual codes; unclassified (20 sources) Edema of lower extremity; Translations: [Localized edema] Onset: 4 08-11-2023 Episodic Residual codes; unclassified (5 sources) Insomnia 09-06-2023 Episodic Residual codes; unclassified [...] Spondylosis; intervertebral disc disorders; other back problems (14 sources) Lumbago with sciatica, left side; Translations: [Chronic back pain ] Onset: 2 07-23-2024 Episodic Suicide and intentional self-inflicted injury (1 source) Suicidal thoughts; Translations: [Suicidal ideations] Onset: 5 Episodic Transient cerebral ischemia (20 sources) Transient cerebral ischemia; Translations: [Transient cerebral ischemic attack, unspecified] Onset: 4 08-11-2023 Chronic Unclassified (2 sources) COUGH, UNSPECIFIED; Translations: [COUGH, UNSPECIFIED] Onset: 2 Unclassified (1 source) CONTACT W/AND (SUSP) EXPOS COVID-19; Translations: [CONTACT W/AND (SUSP) EXPOS COVID-19] Onset: 2 Unclassified (5 sources) Patient encounter status 09-12-2023 Viral infection (1 source) COVID-19; Translations: [COVID-19] Onset: Past or Other Problems Problem Classification Problem [...] covid-19] Onset: 11-04-2021 07-23-2024 Episodic Mood disorders (8 sources) Mood disorders Onset: 08-27-2024 08-27-2024 Other aftercare (1 source) Other senior living (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 therapy; Translations: [OTH SECOND CHEF CURRENT DRUG THERAPY] Onset: 02-23-2022 Episodic Other aftercare (1 source) shelter (current) use of aspirin; Translations: [SECOND CHEF CURRENT USE OF ASPIRIN] Onset: 02-23-2022 Episodic Other aftercare (8 sources) Patient encounter status; Translations: [Other dedicated intermodal truck driver (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 therapy] Onset: 08-11-2023 08-11-2023 Episodic Other aftercare (20 sources) Long-term current use of drug therapy; Translations: [Other dedicated intermodal truck driver (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 therapy] Onset: 08-11-2023 08-11-2023 Episodic [...] Episodic Other nutritional; endocrine; and metabolic disorders (12 [...] STATE] Onset: 09-16-2021 Episodic Residual codes; unclassified (3 sources) Menopause present; Translations: [Asymptomatic menopausal state] Onset: 09-16-2021 07-23-2024 Episodic Unclassified (1 source) COUGH, UNSPECIFIED; Translations: [COUGH, UNSPECIFIED] Onset: 02-22-2022 Results Test Name Value Interpretation Reference Range Facility C Urineon 12-14-2024 Bacteria identified Cx Nom (U) Microbiology PROCEDURE: Urine Culture [R1] SOURCE: U CleanCatch BODY SITE: COLLECTED DATE/TIME: 12/12/2024 14:18 EDT RECEIVED DATE/TIME: 12/12/2024 15:16 EDT START DATE/TIME: 12/12/2024 15:16 EDT FREE TEXT SOURCE: Seun JOVEL, Elmer Kohli DO, Elmer Carrasco FINAL REPORTS Final Report [] Verified Date/Time: 12/14/2024 09:17 EDT >100,000 cfu/ml Escherichia coli SUSCEPTIBILITY RESULTS __ LEGEND: S=Susceptible, N/R=Not Reported, Blank=Data not available, or drug not advisable or tested, I=Intermediate, ESBL=Extended spectrum beta-lactamase, R=Resistant, TFG=Thymidine-dependen t strain, KAYLEE=Beta-lactamase positive, MARCELLO=mcg/m;(mg/L), S*=Predicted susceptible interp, R*=Predicted resistant interp EC Antibiotic MARCELLO Dilutn MARCELLO Interp Ampicillin >16 R Ampicillin/ 16/8 I Sulbactam Cefazolin 4 S Cefepime <=2 S Ceftazidime/ <=8 S Avibactam Ceftriaxone <=1 S Cefuroxime <=4 S Ciprofloxacin >2 R Ertapenem <=0.5 S Gentamicin <=2 S Levofloxacin >4 R Meropenem <=1 S Nitrofurantoin <=32 S Piperacillin/ <=8 S Tazobactam Tetracycline <=4 S Tobramycin <=2 S Trimethoprim/ <=2/38 S Sulfa Performing Locations R1: This test was performed at: [facility], [address] [place] [address], [phone] [phone] , [facility] Comment on above: Performed By: #### [id number] #### [facility] [address] [place] [id number] Cholesterol [Mass/volume] in Serum or PlasmaOrdered By: Erik Kim on 12-13-2024 Cholesterol [Mass/Vol] Cholesterol [Mass/volume] in Serum or Plasma 140-200 [facility] Comment on above: Chol less than 200 m g/dl low riskChol 201-239 mg/dl borderline riskChol 240 mg/dl and greater high risk Cholesterol in HDL [Mass/vol ume] in Serum or PlasmaOrdered By: Erik Kim on 12-13-2024 Cholesterol in HDL [Mass/Vol] Serum or plasma high density lipoprotein (HDL) cholesterol measurement 23-92 [facility] Comment on above: HDL CHOL ATP-III CLA SSIFICATION Cardiovascular RiskHDL > or equal to 60 mg/dL LOWHDL < 40 mg/dL HIGH Cholesterol in LDL Calc [Mas s/Vol]Ordered By: Erik Kim on 12-13-2024 Cholesterol in LDL [Mass/Vol] Cholesterol in LDL [Mass/volume] in Serum or Plasma by calculation 0-100 [facility] Comment on above: LDL ATP III CLASSIFI CATIONLDL less than 100 mg/dL OptimalLDL 100-129 mg/dL Near or above optimalLDL 130-159 mg/dL Borderline highLDL 160-189 mg/dL HighLDL greater than 189 mg/dL Very high Cholesterol in VLDL Calc [Ma ss/Vol]Ordered By: Erik Kim on 12-13-2024 Cholesterol in VLDL [Mass/Vol] Cholesterol in VLDL [Mass/volume] in Serum or Plasma by calculation [facility] Lipid Panelon 12-13-2024 Cholesterol [Mass/Vol] 149 mg/dL Normal 140-200 [facility] Comment on above: Result Comment: Chol less than 200 mg/dl low risk Chol 201-239 mg/dl borderline risk Chol 240 mg/dl and greater high risk Performed By: #### T SH3 wRFLX, LIPID, [id number] #### [facility] [id number] [facility] Cholesterol in HDL [Mass/Vol] 42 mg/dL Normal 23-92 [facility] Comment on above: Result Comment: HDL CHOL ATP-III CLASSIFICATION Cardiovascular Risk HDL > or equal to 60 mg/dL LOW HDL < 40 mg/dL HIGH Performed By: #### T SH3 wRFLX, LIPID, [id number] #### [facility] [address] [place] [address] [facility] Cholesterol.total/Cho lesterol in HDL [Mass ratio] 3.5 {ratio} Normal <5.0 [facility] Comment on above: Performed By: #### T SH3 wRFLX, LIPID, [id number] #### [facility] [address] [id number] [place] LDL Cholesterol,Calculate d 39 mg/dL Normal 0-100 [facility] Comment on above: Result Comment: LDL ATP III CLASSIFICATION LDL less than 100 mg/dL Optimal LDL 100-129 mg/dL Near or above optimal LDL 130-159 mg/dL Borderline high LDL 160-189 mg/dL High LDL greater than 189 mg/dL Very high Performed By: #### T SH3 wRFLX, LIPID, [id number] #### [facility] [address] [place] [address] [place] Triglyceride w/Reflex 338 mg/dL High 0-149 [facility] Comment on above: Result Comment: TRIG ATP III CLASSIFICATION TRIG less than 150 mg/dL Normal TRIG 150-199 mg/dL Borderline high TRIG 200-500 mg/dL High TRIG greater than 500 mg/dL Very high Standard traceable to the Center for Disease Conrtrol and Prevention (CDC) test method. Performed By: #### T SH3 wRFLX, LIPID, [id number] #### [facility] [address] VLDL CHOLESTEROL 67 mg/dL Normal [facility] Comment on above: Performed By: #### T SH3 wRFLX, LIPID, [id number] #### [facility] [address] Serum or plasma total choles terol/high density lipoprotein (HDL) cholesterol mass ratOrdered By: Erik Kim on 12-13-2024 Cholesterol.total/Cho lesterol in HDL [Mass ratio] Serum or plasma total cholesterol/high density lipoprotein (HDL) cholesterol mass rat <5.0 [facility] Thyroid Stim Hormone w/Rflxo n 12-13-2024 Thyroid Stim Hormone w/Rflx 1.95 u[iU]/mL Normal 0.45-5.33 [facility] Comment on above: Performed By: #### T SH3 wRFLX, LIPID, [id number] #### [address] Thyrotropin [Units/volume] i n Serum or PlasmaOrdered By: Erik Kim on 12-13-2024 TSH Qn Thyrotropin [Units/volume] in Serum or Plasma 0.45-5.33 [facility] Triglyceride [Mass/volume] i n Serum or PlasmaOrdered By: Erik Kim on 12-13-2024 Triglyceride [Mass/Vol] Triglyceride [Mass/volume] in Serum or Plasma High 0-149 [facility] Comment on above: TRIG ATP III CLASSIF ICATIONTRIG less than 150 mg/dL NormalTRIG 150-199 mg/dL Borderline highTRIG 200-500 mg/dL High TRIG greater than 500 mg/dL Very highStandard traceable to the Center for Disease Conrtrol and Prevention (CDC) test method. Vitamin D 25 Hydroxy Totalon 12-13-2024 Vitamin D 25 Hydroxy Total 26.8 ng/mL Low 30-100 [facility] Comment on above: Result Comment: FRANCESCO MIN D STATUS 25([place])VITAMIN D RANGE (ng/mL) Deficient <20 Insufficient 20 to <30 Sufficient 30 to 100 Reference: Shannon Remy, Danyel HICKS, et al. Evaluation,treatment, and prevention of vitamin D deficiency; an Endocrine Society clinical practice guideline. JCEM. 2010; 96(7):191-. PERFORMED BY: [place] [address] PATHOLOGIST CAD APPLICATION SUPPORT SPECIALIST AVRIL LEDESMA M.D. Performed By: #### T SH3 wRFLX, LIPID, [id number] #### [address] Vitamin D+Metabolites [Mass/ volume] in Serum or PlasmaOrdered By: Erik Kim on 12-13-2024 Vitamin D+Metabolites [Mass/Vol] Vitamin D+Metabolites [Mass/volume] in Serum or Plasma Low 30-100 [facility] Comment on above: VITAMIN D STATUS 25( [place])VITAMIN D RANGE (ng/mL) Deficient <20 Insufficient 20 to <30Sufficient 30 to 100Reference: Shannon Remy, Danyel HICKS, et al. Evaluation,treatment, and prevention of vitamin D deficiency; an Endocrine Society clinical practice guideline. JCEM. 2010; 96(7):1911-30. CBC w/ Auto Diffon 5 Basophil Absolute 0.0 E9/L Normal 0.0-0.2 [facility] Comment on above: Performed By: #### 2 [id number] #### [facility] [address] [place] [address] Basophils/100 WBC (Bld) 0.3 % Normal 0.0-2.0 [facility] Comment on above: Performed By: #### 2 [id number] #### [facility] [address] [place] [address] Eos Absolute 0.2 E9/L Normal 0.0-0.5 [facility] Comment on above: Performed By: #### 2 [id number] #### [facility] [address] [place] [address] Eosinophils/100 WBC (Bld) 2.8 % Normal 0.0-8.0 [facility] Comment on above: Performed By: #### 2 [id number] #### [facility] [address] [place] [address] Erythrocyte distribution width (RBC) [Ratio] 14.7 % High 10.9-14.2 [facility] Comment on above: Performed By: #### 2 [id number] #### [facility] [address] [place] [address] Hematocrit (Bld) [Volume fraction] 40.9 % Normal 34.0-46.0 [facility] Comment on above: Performed By: #### 2 [id number] #### [facility] [address] [place] [address] Hemoglobin (Bld) [Mass/Vol] 14.1 g/dL Normal 12.0-16.0 [facility] Comment on above: Performed By: #### 2 [id number] #### [facility] [address] [place] [address] Lymph Absolute 2.0 E9/L Normal 1.0-4.0 [facility] Comment on above: Performed By: #### 2 [id number] #### [facility] [address] [place] [address] Lymphocytes/100 WBC (Bld) 24.1 % Normal 14.0-50.0 [facility] Comment on above: Performed By: #### 2 [id number] #### [facility] [address] [place] [address] MCH (RBC) [Entitic mass] 30.7 pg Normal 27.0-34.0 [facility] Comment on above: Performed By: #### 2 [id number] #### [facility] [address] [place] [address] MCHC (RBC) [Mass/Vol] 34.5 g/dL Normal 31.4-36.0 [facility] Comment on above: Performed By: #### 2 [id number] #### [facility] [address] [place] [address] MCV (RBC) [Entitic vol] 88.8 fL Normal 80.0-100.0 [facility] Comment on above: Performed By: #### 2 [id number] #### [facility] [address] [place] [address] [place] Absolute 0.5 E9/L Normal 0.2-1.0 [facility] Comment on above: Performed By: #### 2 [id number] #### [facility] [address] [place] [address] Monocytes/100 WBC (Bld) 6.8 % Normal 4.0-14.0 [facility] Comment on above: Performed By: #### 2 [id number] #### [facility] [address] [place] [address] Neutro Absolute 5.4 E9/L Normal 2.0-7.5 [facility] Comment on above: Performed By: #### 2 [id number] #### [facility] [address] [place] [address] Neutro Auto 66.0 % Normal 36.0-75.0 [facility] Comment on above: Performed By: #### 2 [id number] #### [facility] [address] [place] [address] Platelet 168.0 E9/L Normal 150.0-500.0 [facility] Comment on above: Performed By: #### 2 [id number] #### [facility] [address] [place] [address] Platelet mean volume (Bld) [Entitic vol] 8.0 fL Normal 6.4-10.8 [facility] Comment on above: Performed By: #### 2 [id number] #### [facility] [address] [place] [address] RBC 4.6 E12/L Normal 4.3-5.9 [facility] Comment on above: Performed By: #### 2 [id number] #### [facility] [address] [place] [address] WBC 8.1 E9/L Normal 4.0-11.0 [facility] Comment on above: Performed By: #### 2 [id number] #### [facility] [address] [place] [address] CHEMISTRYOrdered By: SYSTEM SYSTEM on 12-12-2024 Amphetamines Screen method >1000 ng/mL Ql (U) NEGATIVE 7 (12/12/24 2:18 PM) Normal NEGATIVE [facility] Comment on above: Interpretive Data: N egative Cutoff: <1000 ng/mL Barbiturates Screen Ql (U) NEGATIVE 8 (12/12/24 2:18 PM) Normal NEGATIVE [facility] Comment on above: Interpretive Data: N egative Cutoff: <200 ng/mL Benzodiazepines Ql (U) NEGATIVE 1 (12/12/24 2:18 PM) Normal NEGATIVE [facility] Comment on above: Interpretive Data: N egative Cutoff: <200 ng/mL Cannabinoids Screen Ql (U) NEGATIVE 6 (12/12/24 2:18 PM) Normal NEGATIVE [facility] Comment on above: Interpretive Data: N egative Cutoff: <50 ng/mL Cocaine Ql (U) NEGATIVE 2 (12/12/24 2:18 PM) Normal NEGATIVE [facility] Comment on above: Interpretive Data: N egative Cutoff: <300 ng/mL Opiates Screen Ql (U) NEGATIVE 4 (12/12/24 2:18 PM) Normal NEGATIVE [facility] Comment on above: Interpretive Data: N egative Cutoff: <300 ng/mL Phencyclidine Screen method >25 ng/mL Ql (U) NEGATIVE 5 (12/12/24 2:18 PM) Normal NEGATIVE [facility] Comment on above: Interpretive Data: N egative Cutoff: <25 ng/mL These drug screen results are to be used for medical (i.e., treatment) purposes only. Unconfirmed drug screening results must not be used for non-medical purposes (e.g., employment testing, legal testing). U Fentanyl NEGATIVE 9 (12/12/24 2:18 PM) Normal NEGATIVE [facility] Comment on above: Interpretive Data: N egative Cutoff: <5 ng/mL These drug screen results are to be used for medical (i.e., treatment) purposes only. Unconfirmed drug screening results must not be used for non-medical purposes (e.g., employment testing, legal testing). Albumin [Mass/Vol] 4.0 g/dL Normal 3.3 - 5.0 gm/dL [facility] Albumin/Globulin [Mass ratio] 1.4 {ratio} Normal 1.1 - 2.2 [facility] ALP [Catalytic activity/Vol] 89 [iU]/d Normal 21 - 98 Int._Unit/L [facility] ALT No additional P-5'-P [Catalytic activity/Vol] 20 [iU]/d Normal 6 - 46 Int._Unit/L [facility] Anion gap [Moles/Vol] 11 mmol/L Normal 6 - 16 mEq/L R em[facility] Chem AST [Catalytic activity/Vol] 22 [iU]/d Normal 5 - 43 Int._Unit/L [facility] Bilirubin [Mass/Vol] 0.6 mg/dL Normal 0.0 - 1 .1 mg/dL [facility] Calcium [Mass/Vol] 9.2 mg/dL Normal 8.9 - 11. 1 mg/dL [facility] Chloride [Moles/Vol] 101 mmol/L Normal 101 - 1 11 mmol/L [facility] CO2 [Moles/Vol] 28 mmol/L Normal 21 - 31 mmol/L [facility] Creatinine [Mass/Vol] 0.9 mg/dL Normal 0.5 - 1.3 mg/dL [facility] Ethanol Lvl mg/dL Normal <=11mg/dL [facility] GFR/1.73 sq M.predicted MDRD (S/P/Bld) [Vol rate/Area] 67 mL/min/1.73 m2 Normal >=59mL/min/1 .73 m2 [facility] Globulin (S) [Mass/Vol] 2.9 g/dL Normal 1.4 - 4.0 gm/dL [facility] Glucose [Mass/Vol] 133 mg/dL Normal 55 - 199 mg/dL [facility] Potassium [Moles/Vol] 3.5 mmol/L Normal 3.5 - 5.3 mmol/L [facility] Protein [Mass/Vol] 6.9 g/dL Normal 6.0 - 7.8 gm/dL [facility] Sodium [Moles/Vol] 136 mmol/L Normal 135 - 145 mmol/L [facility] Urea nitrogen [Mass/Vol] 22 mg/dL High 5 - 21 mg/dL [facility] Urea nitrogen/Creatinine [Mass ratio] 24 mg/mg High 10 - 20 [facility] CMPon 12-12-2024 Albumin [Mass/Vol] 4.0 g/dL Normal 3.3-5.0 [facility] Comment on above: Performed By: #### 2 [id number] #### [facility] [address] [place] [address] Albumin/Globulin [Mass ratio] 1.4 {ratio} Normal 1.1-2.2 [facility] Comment on above: Performed By: #### 2 [id number] #### [facility] [address] [place] [address] Alk Phos 89 Int._Unit/L Normal 21-98 [facility] Comment on above: Performed By: #### 2 [id number] #### [facility] [address] [place] [address] ALT 20 Int._Unit/L Normal 6-46 [facility] Comment on above: Performed By: #### 2 [id number] #### [facility] [address] [place] [address] Anion gap [Moles/Vol] 11 mmol/L Normal 6-16 [facility] Comment on above: Performed By: #### 2 [id number] #### [facility] [address] [place] [address] AST 22 Int._Unit/L Normal 5-43 [facility] Comment on above: Performed By: #### 2 [id number] #### [facility] [address] [place] [address] Bili Total 0.6 mg/dL Normal 0.0-1.1 [facility] Comment on above: Performed By: #### 2 [id number] #### [facility] [address] [place] [address] BUN/Creat Ratio 24 No Units High 10-20 [facility] Comment on above: Performed By: #### 2 [id number] #### [facility] [address] [place] [address] Calcium [Mass/Vol] 9.2 mg/dL Normal 8.9-11.1 [facility] Comment on above: Performed By: #### 2 [id number] #### [facility] [address] [place] [address] Chloride [Moles/Vol] 101 mmol/L Normal 101-111 [facility] Comment on above: Performed By: #### 2 [id number] #### [facility] [address] [place] [address] CO2 [Moles/Vol] 28 mmol/L Normal 21-31 [facility] Comment on above: Performed By: #### 2 [id number] #### [facility] [address] [place] [address] Creatinine [Mass/Vol] 0.9 mg/dL Normal 0.5-1.3 [facility] Comment on above: Performed By: #### 2 [id number] #### [facility] [address] [place] [address] Globulin (S) [Mass/Vol] 2.9 g/dL Normal 1.4-4.0 [facility] Comment on above: Performed By: #### 2 [id number] #### [facility] [address] [place] [address] Glucose [Mass/Vol] 133 mg/dL Normal 55-199 [facility] Comment on above: Performed By: #### 2 [id number] #### [facility] [address] [place] [address] Potassium [Moles/Vol] 3.5 mmol/L Normal 3.5-5.3 [facility] Comment on above: Performed By: #### 2 [id number] #### [facility] [address] [place] [address] Protein [Mass/Vol] 6.9 g/dL Normal 6.0-7.8 [facility] Comment on above: Performed By: #### 2 [id number] #### [facility] [address] [place] [address] Sodium [Moles/Vol] 136 mmol/L Normal 135-145 [facility] Comment on above: Performed By: #### 2 [id number] #### [facility] [address] [place] [address] Urea nitrogen [Mass/Vol] 22 mg/dL High 5-21 [facility] Comment on above: Performed By: #### 2 [id number] #### [facility] [address] [place] [address] ED Clinical Summaryon 2024 ED Clinical Summary ED Clinical Summary [address] [address] ED Clinical Summary Person Information Name: SHEY OBRIEN/[facility] Age: 74 Years : 1950 Sex: Female Language: Anguillan PCP: LATRELL JACK MD Marital Status: Single Visit Id: Visit Reason: Suicidal ideation; Psychiatric problem; MENTAL EVAL Speciality: Acuity: 2 Enc Type: Emergency Med Service: Emergency Arrival: 12/12/2024 13:24:04 Discharge: 12/12/2024 17:39:58 LOS: 000 04:15 Checkin: 12/12/2024 13:24:04 Checkout: 12/12/2024 17:39:58 Dispo Type: [facility] EVENTS: Event Name Event Status Request Date/Time Start Date/Time Complete Date/Time Arrive Complete 12/12/2024 13:24:04 12/12/2024 13:24:04 12/12/2024 13:24:04 Document Home Meds Request 12/12/2024 13:24:04 Triage Complete 12/12/2024 13:24:04 12/12/2024 13:39:14 12/12/2024 13:39:14 Bed Assign Complete 12/12/2024 13:39:21 12/12/2024 13:39:21 12/12/2024 13:39:21 Dr Exam Complete 12/12/2024 13:39:21 12/12/2024 13:40:22 12/12/2024 13:40:22 RN Exam Complete 12/12/2024 13:39:21 12/12/2024 14:18:26 12/12/2024 14:18:26 Registration Complete 12/12/2024 13:40:22 12/12/2024 13:45:05 12/12/2024 13:45:05 Consult Request 12/12/2024 13:41:03 EKG Complete 12/12/2024 13:41:03 12/12/2024 13:46:39 Pending Labs Complete 12/12/2024 13:41:03 12/12/2024 14:54:38 Lab Complete 12/12/2024 13:41:03 12/12/2024 14:54:38 Urine Collect Complete 12/12/2024 13:41:03 12/12/2024 14:54:38 Patient Care Request 12/12/2024 13:41:03 Reg Complete Request 12/12/2024 13:45:05 Reg Bed Request Complete 12/12/2024 13:45:05 12/12/2024 13:45:05 12/12/2024 13:45:05 Pending Labs Complete 12/12/2024 13:54:51 12/12/2024 13:54:51 12/12/2024 14:20:11 Lab Complete 12/12/2024 13:54:51 12/12/2024 13:54:51 12/12/2024 14:20:11 Pending Labs Inlab 12/12/2024 14:43:22 12/12/2024 14:43:22 Lab Inlab 12/12/2024 14:43:22 12/12/2024 14:43:22 Discharge Complete 12/12/2024 17:40:09 12/12/2024 17:40:09 12/12/2024 17:40:09 Transfer Complete 12/12/2024 17:40:09 12/12/2024 17:40:09 12/12/2024 17:40:09 ADDRESS: [address] [place] [id number] PHYS DOC NOTES: MEDICAL INFORMATION: Prescriptions Given: Medications to Continue with No Changes Other Medications albuterol (albuterol 0.083% Inh Marlin 3 mL) 150 mL, 0 Refill(s), INHALE 3 ML(2.5 MG) BY NEBULIZER EVERY 4 HOURS NEEDED FOR SHORTNESS OF BREATH OR WHEEZING. aspirin (aspirin 81 mg Oral EC Tab) 1 Tablets By Mouth every day. atorvastatin (atorvastatin 40 mg Tab) 1 Tablets By Mouth every day. cholecalciferol (Vitamin D3 1000 intl units (25 mcg) Tab) 1 Tablets By Mouth every day. donepezil (donepezil 5 mg Tab) 30 EA, 0 Refill(s), TAKE 1 TABLET BY MOUTH AT BEDTIME. famotidine (famotidine 40 mg Tab) 1 Tablets By Mouth once a day (at bedtime). fluticasone nasal (Flonase 0.05 mg/inh Luckey) 2 Sprays Nasal Inhalation every day. losartan [...] bedtime) as needed for sleep. PATIENT EDUCATION INFORMATION: Instructions: Follow up: DIAGNOSIS: Suicidal ideation Normal [facility] ED Note-Physicianon 12-13-19 ED Note-Physician ED Note-Physician Basic Information Time Seen: Elmer Kohli DO 12/12/2024 13:40 Chief Complaint pt has hx of anxiety. very jitttery. pt says she had thoughts of hurting herself on monday. i feel like my kids would be better off without me pt says she doesnt want these thoughts anymore History of Present Illness 74-year-old female to the emergency department chief complaint of suicidal thoughts. She called helpline today. She reports that she feels like she is a burden on her family. She has thoughts about wanting to harm herself. She is otherwise been at her baseline health. No particular plan. She reports a history of anxiety. Review of Systems A 10 point review of systems is negative except as noted above. Medical and Surgical History: Reviewed and noted Social history: Lives at home Tobacco: Denies Physical Exam Vitals & Measurements T: 36.7 ???C(Oral) HR: 90(Monitored) RR: 18 BP: 159/92 SpO2: 97% HT: 162 cm WT: 100 kg BMI: 38.1 VITALS: I have reviewed the triage vital signs. GENERAL: Well developed, well appearing adult in no acute distress. NEURO: Alert and oriented. Moves all extremities. Face is symmetric and expressive. EYES: PERRL. No scleral icterus or conjunctival injection. No discharge. HENT: Normocephalic, atraumatic. Hearing is grossly intact. Nares grossly patent and without discharge. Mucous membranes moist. NECK: No JVD. Patient moves neck without restriction. CARDIO: Rhythm regular. Normal rate. No murmur, rub, or gallop. Pulses equal bilaterally in the upper and lower extremity. No lower extremity edema. PULM: Lungs clear to auscultation in all lares. No wheezes, rales, or rhonchi. No conversational dyspnea. No splinting, stridor, or accessory muscle use. GI/: Abdomen is soft and non-tender. Normoactive bowel sounds. EXTREMITIES: Symmetric muscle bulk. No joint swelling. No clubbing, cyanosis, or deformity. SKIN: Warm and dry. Normal turgor. No rash or lesions appreciated. PSYCH: Mood, affect, and interaction is appropriate to the setting. Medical Decision Making 74-year-old female to the emergency department chief complaint suicidal ideation. Vital stable, the patient is afebrile. Psychiatric screening is ordered. Lab work unremarkable. Urine questionable, no obvious UTI symptoms clinically. Will allow to culture. MHP evaluated. Patient be placed at [address] Kim. Assessment/Plan Suicidal ideation (R45.851: Suicidal ideations) Orders: CBC w/ Auto Diff Communication Order Comprehensive Metabolic Panel Consult to Mental Health Drug Screen Urine ECG 12 Lead Adult eGFR Ethanol Level UA with Cult Rflx Urine Culture Disposition Plan Patient Discharge Condition Stable Discharge Disposition Transfer Discharge Prescription List Prescriptions No active prescription medications Follow-up No qualifying data available Problem List/Past Medical History Ongoing BMI 39.0-39.9,adult Chronic obstructive pulmonary disease Dyslipidemia Dysphagia GERD (gastroesophageal reflux disease) Hiatal hernia HTN (hypertension) Insomnia Lower extremity edema Morbid obesity EDWIN (obstructive sleep apnea) Screening for malignant neoplasm of colon Seasonal allergic rhinitis TIA (transient ischemic attack) Historical Hernia Sleep apnea Procedure/Surgical History Esophagogastroduodenos copy (03/20/2024), Colonoscopy (10/13/2023), Hand tendon repaired, Meniscal repair, ORIF - Open reduction of fracture of ankle with internal fixation, Tonsillectomy. Medications Inpatient No active inpatient medications Home albuterol 0.083% Inh Marlin 3 mL, Self Directed aspirin 81 mg Oral EC Tab, 81 mg= 1 tab(s), Oral, Daily atorvastatin 40 mg Tab, 40 mg= 1 tab(s), Oral, Daily Calcium, 1 tab, Oral, Daily donepezil 5 mg Tab famotidine 40 mg Tab, 40 mg= 1 tab(s), Oral, Once a day (at bedtime) Flonase 0.05 mg/inh Luckey, 2 spray(s), Nasal, Daily losartan 25 mg Tab, 25 mg= 1 tab(s), Oral, Daily One A Day Women's Complete, Oral, Daily Pantoprazole [address] Tab, 40 mg= 1 tab(s), Oral, Daily Vitamin D3 1000 intl units (25 mcg) Tab, 25 mcg= 1 tab(s), Oral, Daily vitamin E, Oral, Daily zolpidem 12.5 mg oral ER [...] Mother. Primary malignant neoplasm of lung: Father. Lab Results WBC: 8.1 E9/L (12/12/24 13:50:00) RBC: 4.6 E12/L (12/12/24 13:50:00) HGB: 14.1 gm/dL (12/12/24 13:50:00) Hct: 40.9 % (12/12/24 13:50:00) MCV: 88.8 fL (12/12/24 13:50 (more content not included)... Normal [facility] Comment on above: Result Comment: Elec tronically Signed By: Elmer Kohli DO\.br\Date and Time Signed: 12/12/24 17:26 EDT ED Patient Education Noteon 12-12-2024 ED Patient Education Note ED Patient Education Note Normal [facility] ED Patient Summaryon ED Patient Summary ED Patient Summary [place] [id number] Patient Discharge Instructions Person Information Name: SHEY OBRIEN Age: 74 Years Arrival Date: 12/12/2024 13:24:04 Discharge Diagnosis: Suicidal ideation Primary Care Physician: LATRELL JACK MD Provider Information Primary Provider: Elmer Kohli DO [employer] [address] Clerk:None The exam and treatment you received in the Emergency Department were for an urgent problem and are not intended as complete care. It is important that you follow up with a doctor, nurse practitioner, or physician???s wardrobe assistant for ongoing care. If your symptoms become worse or you do not improve as expected and you are unable to reach your usual health care provider, you should return to the Emergency Department. We are available 24 hours a day. SHEY OBRIEN has been given the following list of patient education materials, prescriptions and follow-up instructions: Follow-up Instructions: In the event that this physician does not participate in your insurance network, please consult with your insurance company to find a nearby participating provider. Patient Education Materials: A MESSAGE TO ALL PATIENTS REGARDING OPIOIDS PRESCRIPTION OPIOIDS: WHAT YOU NEED TO KNOW Prescription opioids can be used to help relieve neyriyfj-kf-llncli pain and are often prescribed following a surgery or injury, or for certain health conditions. These medications can be an important part of the treatment but also come with serious risks. It is important to work with your healthcare provider to make sure you are getting the safest, most effective care. WHAT ARE THE RISKS AND SIDE EFFECTS OF OPIOID USE? Prescription opioids carry serious risks of addiction and overdose, especially with prolonged use. An opioid overdose, often marked by slowed breathing, can cause sudden . The use of prescription opioids can have a number of side effects as well, even when taken as directed: ??? Tolerance???meaning you might need to take more of the medication for the same pain relief ??? Physical dependence???meaning you have symptoms of withdrawal when a medication is stopped ??? Increased sensitivity to pain ??? Constipation ??? Nausea, vomiting, and dry mouth ??? Sleepiness and dizziness ??? Confusion ??? Depression ??? Low levels of testosterone that can result in lower sex drive, energy, and strength ??? Itching and sweating RISKS ARE GREATER WITH: ??? History of drug misuse, substance use disorder, or overdose ??? Mental health conditions (such as depression or anxiety) ??? Sleep apnea ??? Older age (65 years and older) ??? Avoid alcohol while taking prescription opioids. Also, unless specifically advised by your health care provider, medications to avoid include: ??? Benzodiazepines (such as Xanax or Valium) ??? Muscle relaxants (such as Soma or Flexeril) ??? Hypnotics (such as Ambien or Lunesta) ??? Other prescription opioids KNOW YOUR OPTIONS Talk to your health care provider about ways to manage your pain that don???t involve prescription opioids. Some of these options may actually work better and have fewer risks and side effects. Options may include: ??? Pain relievers such as acetaminophen, ibuprofen, and naproxen ??? Some medication that are also used for depression or seizures ??? Physical therapy and exercise ??? Cognitive behavioral therapy, a psychological, goal-directed approach, in which patients learn how to modify physical, behavioral, and emotional triggers of pain and stress. IF YOU ARE PRESCRIBED OPIOIDS FOR PAIN: ??? Never take opioids in greater amounts or more often than prescribed. ??? Follow up with your primary health care provider. o Work together to create a plan on how to manage your pain. o Talk about ways to help manage your pain that don???t involve prescription opioids. o Talk about any and all concerns and side effects. ??? Help prevent misuse and abuse o Never sell or share prescription opioids. o Never use another person???s prescription opioids. ??? Store prescription opioids in a secure place and out of reach of others (this may include visitors, children, friends, and family). ??? Safely dispose of unused prescription opioids: Find your community drug take-back program or your pharmacy mail-back program, or flush them down the toilet, following guidance from the Food and Drug Administration (www.fda.gov/Drugs/Res ourcesForYou). ??? Visit www.cdc.gov/drugoverdo se to learn about the risks of opioids abuse and overdose. ??? If you believe you may be struggling with addiction, tell your health specialist wound care and ask for guidance or call [facility]???S National Helpline at 6-250-991-ONPI. v Source: [place] Department of Health and Human Services/Center for Disease Control & Prevention Gloria (more content not included)... Normal [facility] Ethanolon 12-12-2024 Ethanol Lvl <10 Normal <=11 [facility] Comment on above: Performed By: #### 2 [id number] #### [facility] [address] [place] [address] HEMATOLOGYOrdered By: SYSTEM SYSTEM on 12-12-2024 Basophils/100 WBC (Bld) 0.3 % Normal 0.0 - 2.0 % [facility] Basophils/Leukocytes Auto (Bld) [Pure # fraction] 0.0 E9/L Normal 0.0 - 0.2 E9/L [facility] Eosinophils (Bld) [#/Vol] 0.2 E9/L Normal 0.0 - 0.5 E9/L [facility] Eosinophils/100 WBC (Bld) 2.8 % Normal 0.0 - 8.0 % [facility] Erythrocyte distribution width (RBC) [Ratio] 14.7 % High 10.9 - 14.2 % [facility] Hematocrit (Bld) [Volume fraction] 40.9 % Normal 34.0 - 46.0 % [facility] Hemoglobin (Bld) [Mass/Vol] 14.1 g/dL Normal 12.0 - 16.0 gm/dL [facility] Lymphocytes (Bld) [#/Vol] 2.0 E9/L Normal 1.0 - 4.0 E9/L [facility] Lymphocytes/100 WBC (Bld) 24.1 % Normal 14.0 - 50.0 % [facility] MCH (RBC) [Entitic mass] 30.7 pg Normal 27.0 - 34.0 pg Remisol Heme MCHC (RBC) [Mass/Vol] 34.5 g/dL Normal 31.4 - 36.0 gm/dL [facility] MCV (RBC) [Entitic vol] 88.8 fL Normal 80.0 - 100.0 fL [facility] Monocytes (Bld) [#/Vol] 0.5 E9/L Normal 0.2 - 1.0 E9/L [facility] Monocytes/100 WBC (Bld) 6.8 % Normal 4.0 - 14.0 % [facility] Neutrophils (Bld) [#/Vol] 5.4 E9/L Normal 2.0 - 7.5 E9/L [facility] Neutrophils/100 WBC (Bld) 66.0 % Normal 36.0 - 75.0 % [facility] Platelet mean volume (Bld) [Entitic vol] 8.0 fL Normal 6.4 - 10.8 fL [facility] Platelets (Bld) [#/Vol] 168.0 E9/L Normal 150.0 - 500.0 E9/L [facility] RBC (Bld) [#/Vol] 4.6 E12/L Normal 4.3 - 5.9 E12/L [facility] WBC corrected for nucl RBC Auto (Bld) [#/Vol] 8.1 E9/L Normal 4.0 - 11.0 E9/L [facility] U Drug Screenon 12-12-2024 U Amph Scr Negative Normal NEGATIVE [facility] Comment on above: Result Comment: Nega tive Cutoff: <1000 ng/mL Performed By: #### 2 [id number] #### [facility] [address] [place] [address] U Jessica Scr Negative Normal NEGATIVE [facility] Comment on above: Result Comment: Nega tive Cutoff: <200 ng/mL Performed By: #### 2 [id number] #### [facility] [address] [place] [address] U Benzodia Scr Negative Normal NEGATIVE [facility] Comment on above: Result Comment: Nega tive Cutoff: <200 ng/mL Performed By: #### 2 [id number] #### [facility] [address] [place] [address] U Cannab Scr Negative Normal NEGATIVE [facility] Comment on above: Result Comment: Nega tive Cutoff: <50 ng/mL Performed By: #### 2 [id number] #### [facility] [address] [place] [address] U Cocaine Scr Negative Normal NEGATIVE [facility] Comment on above: Result Comment: Nega tive Cutoff: <300 ng/mL Performed By: #### 2 [id number] #### [facility] [address] [place] [address] U Fentanyl Negative Normal NEGATIVE [facility] Comment on above: Result Comment: Nega tive Cutoff: <5 ng/mL These drug screen results are to be used for medical (i.e., treatment) purposes only. Unconfirmed drug screening results must not be used for non-medical purposes (e.g., employment testing, legal testing). Performed By: #### 2 [id number] #### [facility] [address] [place] [address] U Opiate Scr Negative Normal NEGATIVE [facility] Comment on above: Result Comment: Nega tive Cutoff: <300 ng/mL Performed By: #### 2 [id number] #### [facility] [address] [place] [address] U PCP Scr Negative Normal NEGATIVE [facility] Comment on above: Result Comment: Nega tive Cutoff: <25 ng/mL These drug screen results are to be used for medical (i.e., treatment) purposes only. Unconfirmed drug screening results must not be used for non-medical purposes (e.g., employment testing, legal testing). Performed By: #### 2 [id number] #### [facility] [address] [place] [address] UA with Cult Rflxon 12-13-19 25 Color (U) Light-Yellow Normal Yellow [facility] Comment on above: Result Comment: Micr oscopic readings are only performed on those samples that meet specific criteria set forth by [facility]. Performed By: #### 4 [id number] #### [facility] [address] [place] [address] Glucose (U) [Mass/Vol] Negative Normal Negative [facility] Comment on above: Performed By: #### 4 [id number] #### [facility] [address] [place] [address] Ketones Ql (U) Negative Normal Negative [facility] Comment on above: Performed By: #### 4 [id number] #### [facility] [address] [place] [address] UA Blood Negative Normal Negative [facility] Comment on above: Performed By: #### 4 [id number] #### [facility] [address] [place] [address] UA Bacteria 1+ /HPF Abnormal Trace [facility] Comment on above: Performed By: #### 4 [id number] #### [facility] [address] [place] [address] UA Clarity Clear Normal Clear [facility] Comment on above: Performed By: #### 4 [id number] #### [facility] [address] [place] [address] UA Leuk Est 75 [place]/uL Abnormal Negative [facility] Comment on above: Performed By: #### 4 [id number] #### [facility] [address] [place] [address] UA Mucous Trace Normal Negative [facility] Comment on above: Performed By: #### 4 [id number] #### [facility] [address] [place] [address] UA Nitrite Negative Normal Negative [facility] Comment on above: Performed By: #### 4 [id number] #### [facility] [address] [place] [address] UA pH 5.5 Invalid Interpretation Code 5.0-9.0 [facility] Comment on above: Performed By: #### 4 [id number] #### [facility] [address] [place] [address] UA Protein Negative Normal Negative [facility] Comment on above: Performed By: #### 4 [id number] #### [facility] [address] [place] [address] UA Spec Grav 1.009 Invalid Interpretation Code 1.005-1.030 [facility] Comment on above: Performed By: #### 4 [id number] #### [facility] [address] [place] [address] UA Squam Epithelial 0-2 Invalid Interpretation Code [facility] Comment on above: Performed By: #### 4 [id number] #### [facility] [address] [place] [address] UA Urobilinogen Negative Normal Negative [facility] Comment on above: Performed By: #### 4 [id number] #### [facility] [address] [place] [address] Urobilinogen (U) [Mass/Vol] Negative Normal Negative [facility] Comment on above: Performed By: #### 4 [id number] #### [facility] [address] [place] [address] UA Spec Desc Clean Catch Normal [facility] Comment on above: Performed By: #### 4 [id number] #### [facility] [address] [place] [address] URINALYSISOrdered By: SYSTEM SYSTEM on 12-12-2024 Bacteria Auto Ql (U) 1+ /HPF Invalid Interpretation Code Trace/HPF [facility] UA Auto SS Bilirubin Ql (U) Negative Normal Negativemg/ d L [facility] UA Auto SS Clarity (U) Clear (12/12/24 2:18 PM) Normal Clear [facility] UA Auto SS Color (U) Light-Yellow 3 (12/12/24 2:18 PM) Normal Yellow [facility] Auto SS Comment on above: Interpretive Data: M icroscopic readings are only performed on those samples that meet specific criteria set forth by [facility]. Epithelial cells.squamous Auto (Urine sed) [#/Area] 0-2 graded/HPF Invalid Interpretation Code [facility] UA Auto SS Glucose Ql (U) Negative Normal Negativemg/d L [facility] UA Auto SS Hemoglobin Auto test strip (U) [Mass/Vol] Negative Normal Negativemg/d L [facility] UA Auto SS Ketones Auto test strip Ql (U) Negative Normal Negativemg/d L [facility] UA Auto SS Leukocyte esterase Auto test strip Ql (U) 75 [place]ella/uL [place]bella/uL Invalid Interpretation Code NegativeLeu/ uL [facility] UA Auto SS Mucus Auto Ql (U) Trace graded/LPF Normal Negati vegrad ed/LPF [facility] UA Auto SS Nitrite Auto test strip Ql (U) Negative Normal Negativemg/d L [facility] UA Auto SS pH (U) 5.5 *NA* (12/12/24 2:18 PM) Invalid Interpretation Code 5.0 - 9.0 [facility] UA Auto SS Protein Ql (U) Negative Normal Negativemg/d L [facility] UA Auto SS Specific gravity (U) [Rel density] 1.009 *NA* (12/12/24 2:18 PM) Invalid Interpretation Code 1.005 - 1.030 [facility] UA Auto SS Urobilinogen (U) [Mass/Vol] Negative Normal Negativemg/d L [facility] UA Auto SS URINALYSISOrdered By: Elmer Kohli on 12-12-2024 UA Spec Desc Clean Catch (12/12/24 2:18 PM) Normal [facility]A Auto SS XR HIP LT MIN [address] [place] [address] XRay Report Signed Patient: SHEY OBRIEN MR#: [id number] : 1950 Acct:[id number] Age/Sex: 74 / F ADM Date: 12/12/24 Loc: [facility] Attending Dr: Amalia Woodson NP Ordering Physician: Amalia Woodson NP Date of Service: 12/12/24 Procedure(s): XR hip LT min 2V Accession Number(s): [id number] cc: Amalia Woodson NP; Latrell Jack M.D. The [address] [id number] Patient Name: SHEY OBRIEN MRN: [facility]:[id number] date: 1950 Sex: F Assigned Patient Location: Current Patient Location: Accession/Order Number: [id number] Exam Date: 12/12/2024 10:32 Report Date: 12/12/2024 10:34 At the request of: AMALIA WOODSON NP Procedure: XR hip LT min [...] Narvaez M.D. 12/12/2024 10:34 AM Dictation Location: [place] [address] Electronically authenticated by: [id number] Y Date: 12/12/2024 10:34 Dictated By: Juliane Narvaez M.D. Signed By: 12/12/24 1037 DD/ 1034 TD/TT: Tight Barrel Inspector: [facility] Radiology, Radiologist, - 12/12/2024 [place] [address] XRay Report Signed Patient: SHEY OBRIEN MR#: [id number] : 1950 Acct:[id number] Age/Sex: 74 / F ADM Date: 12/12/24 Loc: RAD Attending Dr: Amalia Woodson NP Ordering Physician: Amalia Woodson NP Date of Service: 12/12/24 Procedure(s): XR hip LT min 2V Accession Number(s): [id number] cc: Amalia Woodson NP; Latrell Jack M.D. The [address] [address] Patient Name: SHEY OBRIEN MRN: [id number] date: 1950 Sex: F Assigned Patient Location: PM Current Patient Location: PM Accession/Order Number: [id number] Exam Date: 12/12/2024 10:32 Report Date: 12/12/2024 10:34 At the request of: AMALIA WOODSON NP Procedure: XR hip LT min [...] Narvaez M.D. 12/12/2024 10:34 AM Dictation Location: [place] [address] Electronically authenticated by: [id number] Y Date: 12/12/2024 10:34 Dictated By: Juliane Narvaez M.D. Signed By: 12/12/24 1037 DD/ 1034 TD/TT: Tight Barrel Inspector: [facility] Radiology Study observation (narrative) [facility] XR HIP LT MIN 2VOrdered By: Radiologist Radiology on 12-12-2024 [facility] Work Phone: eGFRon 12-12-2024 eGFR 67 mL/min/1.73 m2 Normal >=59 [facility] Comment on above: Performed By: #### 1 [id number] #### [facility] [address] [place] [address] ALL CBC WITH AUTO DIFFon BASOPHILS ABSOLUTE AUTO 0 [facility] Basophils/100 WBC (Bld) 0.4 % 0.2 - 2.0 % [facility] Eosinophils/100 WBC (Bld) 3.5 % 0.9 - 7.0 % [facility] Erythrocyte distribution width (RBC) [Ratio] 12.8 % 11.0 - 15.0 % [facility] Hematocrit (Bld) [Volume fraction] 39.2 % 36.0 - 48.0 % [facility] Hemoglobin (Bld) [Mass/Vol] 13.1 g/dL 12.0 - 16.0 g/dL [facility] IMMATURE GRANULOCYTES ABS AUTO 0.09 High [facility] Immature granulocytes/100 WBC (Bld) 1.3 % High 0.0 - 0.5 % [facility] Interpretation and review of laboratory results Abnormal [facility] LYMPHOCYTES ABSOLUTE AUTO 1.2 [facility] Lymphocytes/100 WBC (Bld) 18.3 % Low 20.5 - 60.0 % [facility] MCH (RBC) [Entitic mass] 31.9 pg 26.7 - 34.0 pg [facility] MCHC (RBC) [Mass/Vol] 33.4 g/dL 29.9 - 35.2 g/dL [facility] MCV (RBC) [Entitic vol] 95.4 fL 81.0 - 99.0 fL [facility] MONOCYTES ABSOLUTE AUTO 0.4 [facility] Monocytes/100 WBC (Bld) 6.5 % 1.7 - 12.0 % [facility] NEUTROPHILS ABSOLUTE AUTO 4.7 [facility] Neutrophils/100 WBC (Bld) 70 % 43.0 - 75.0 % [facility] Platelet mean volume (Bld) [Entitic vol] 10.6 fL 9.5 - 13.5 fL [facility] TBH EO # 0.2 [facility]H PLT 194 [facility] TB RBC 4.11 Low [facility] WBC 6.8 [facility] CNOVon 08-07-2024 CNOV Office Visit (Maximo ) SHEY OBRIEN ([id number]) 1950 F Date Time Provider Department 08/07/24 [...] Katarzyna Snyder APRN.CNP 08/07/2024 3:37 PM Signed [facility] Clinic Date: August [...] completed prior to appointment Katarzyna Snyder, MSN, COMMERCIAL LINES ACCOUNT ASSISTANT August 07, 2024 Referring Provider: BARI CASTILLO [[id number]] Allergies As of Date: 08/07/2024 (No Known Allergies) Date Reviewed: 08/07/2024 Reviewed by: Olga Lidia Blake MA - Fully Assessed Reason for Visit: Post Op [174] Primary Visit Diagnosis:Postoperativ e visit [Z (more content not included)... Normal [facility] Basic metabolic 2000 panelon 07-26-2024 Anion gap [Moles/Vol] 12 mmol/L Normal 8-15 [facility] Comment on above: Order Comment: Speci izaiah Type: BLOOD SPECIMEN Ordering Facility: [facility] Address: [address] [place] [address] Performed By: #### 2 4321-2, HSTNT, , 2776- #### [facility] CLIA [id number] [address] [place] [address] [place] Calcium [Mass/Vol] 9.0 mg/dL Normal 8.5-10.2 [facility] Comment on above: Order Comment: Speci men Type: BLOOD SPECIMEN Ordering Facility: [facility] Address: [address] [place] [address] Performed By: #### 2 4321-2, HSTNT, , 2776- #### [facility] CLIA [id number] [address] [place] [address] [place] Chloride [Moles/Vol] 107 mmol/L Normal 98-107 [facility] Comment on above: Order Comment: Speci men Type: BLOOD SPECIMEN Ordering Facility: [facility] Address: [address] [place] [address] Performed By: #### 2 4321-2, HSTNT, , 2776-1 #### [facility] CLIA [id number] [address] [place] [address] [place] CO2 [Moles/Vol] 24 mmol/L Normal 22-30 [facility] Comment on above: Order Comment: Fabiola bliss Type: BLOOD SPECIMEN Ordering Facility: [facility] Address: [address] [place] [address] Performed By: #### 2 4321-2, HSTNT, , 2776-07 #### [facility] CLIA [id number] [address] [place] [address] [place] Creatinine [Mass/Vol] 0.92 mg/dL Normal 0.58-0.96 [facility] Comment on above: Order Comment: Fabiola bliss Type: BLOOD SPECIMEN Ordering Facility: [facility] Address: [address] [place] [address] Performed By: #### 2 4321-2, HSTNT, , 2776-07 #### [facility] CLIA [id number] [address] [place] [address] [place] Creatinine and Glomerular filtration rate.predicted panel (S/P/Bld) 66 mL/min/1.73m??? Normal >=60 [facility] Comment on above: Order Comment: Fabiola bliss Type: BLOOD SPECIMEN Ordering Facility: [facility] Address: [address] [place] [address] Result Comment: Ira mated Glomerular Filtration Rate [...] #### 2 4321-2, HSTNT, , 2776-07 #### [facility] CLIA [id number] [address] [place] [address] [place] Glucose [Mass/Vol] 112 mg/dL High 74-99 [facility] Comment on above: Order Comment: Speci men Type: BLOOD SPECIMEN Ordering Facility: [facility] Address: [address] [place] [address] Result Comment: The [place] [employer] (ADA) provides guidance for cutoff [...] Standards of Medical Care in Diabetes 2016, [place] [employer]. Diabetes Care. 2016.39(Suppl 1). Performed By: #### 2 4321-2, HSTNT, , 2776- #### [facility] CLIA [id number] [address] [place] [address] [place] Potassium [Moles/Vol] 3.4 mmol/L Low 3.7-5.1 [facility] Comment on above: Order Comment: Fabiola bliss Type: BLOOD SPECIMEN Ordering Facility: [facility] Address: [address] [place] [address] Performed By: #### 2 4321-2, HSTNT, , 2776-07 #### [facility] CLIA [id number] [address] [place] [address] [place] Sodium [Moles/Vol] 143 mmol/L Normal 136-144 [facility] Comment on above: Order Comment: Fabiola bliss Type: BLOOD SPECIMEN Ordering Facility: [facility] Address: [address] [place] [address] Performed By: #### 2 4321-2, HSTNT, , 2776- #### [facility] CLIA [id number] [address] [id number] [address] [place] Urea nitrogen [Mass/Vol] 10 mg/dL Normal 7-21 [facility] Comment on above: Order Comment: Speci men Type: BLOOD SPECIMEN Ordering Facility: [facility] Address: [address] [place] [address] Performed By: #### 2 4321-2, HSTNT, , 2776-07 #### [facility] CLIA [id number] [address] [place] [address] [place] CASE MANAGEMon 07-26-2024 CASE MANAGEM HNO ID: [id number] Author: KRISTIE DIAZ, ? Service: ? Author Type: ? Type: Care Mgt Progress Note Filed: 07/26/2024 11:58 Note Text: CARE MANAGEMENT PROGRESS NOTE SERVICE DATE: 07/26/2024 SERVICE TIME: 11:57 AM LOS: 2 days IMM Follow Up Copy Given: Yes Copy given to:: Patient Method: In Person SIGNATURE: Kristie Diaz CMA PATIENT NAME: Shey Obrien DATE: July 26, 2024 TIME: 11:57 AM Normal [facility] CBC W Auto Differential pane l (Bld)on 07-26-2024 Basophils (Bld) [#/Vol] 10*3/uL Normal <0.11 [facility] Comment on above: Order Comment: Speci men Type: BLOOD SPECIMEN Ordering Facility: [facility] Address: [address] [place] [address] Performed By: #### 2 4321-2, HSTNT, , 2776-07 #### [facility] CLIA [id number] [address] [place] [address] [place] Basophils/100 WBC (Bld) 0.3 % Normal [facility] Comment on above: Order Comment: Speci men Type: BLOOD SPECIMEN Ordering Facility: [facility] Address: [address] [place] [address] Performed By: #### 2 4321-2, HSTNT, , 2776-07 #### [facility] CLIA [id number] [address] [place] [address] [place] Differential cell count method Nom (Bld) Auto Normal [facility] Comment on above: Order Comment: Speci men Type: BLOOD SPECIMEN Ordering Facility: [facility] Address: [address] [place] [address] Performed By: #### 2 4321-2, HSTNT, , 2776- #### [facility] CLIA [id number] [address] [place] [address] [place] Eosinophils (Bld) [#/Vol] 0.08 10*3/uL Normal <0.46 [facility] Comment on above: Order Comment: Speci men Type: BLOOD SPECIMEN Ordering Facility: [facility] Address: [address] [place] [address] Performed By: #### 2 4321-2, HSTNT, , 2776-07 #### [facility] CLIA [id number] [address] [place] [address] [place] Eosinophils/100 WBC (Bld) 1.3 % Normal [facility] Comment on above: Order Comment: Speci men Type: BLOOD SPECIMEN Ordering Facility: [facility] Address: [address] [place] [address] Performed By: #### 2 4321-2, HSTNT, , 2776-07 #### [facility] CLIA [id number] [address] [place] [address] [place] Erythrocyte distribution width (RBC) [Ratio] 13.9 % Normal 11.5-15.0 [facility] Comment on above: Order Comment: Speci men Type: BLOOD SPECIMEN Ordering Facility: [facility] Address: [address] [place] [address] Performed By: #### 2 4321-2, HSTNT, , 2776- #### [facility] CLIA [id number] [address] [place] [address] [place] Hematocrit (Bld) [Volume fraction] 35.1 % Low 36.0-46.0 [facility] Comment on above: Order Comment: Speci men Type: BLOOD SPECIMEN Ordering Facility: [facility] Address: [address] [place] [address] Performed By: #### 2 4321-2, HSTNT, , 2776-07 #### [facility] CLIA [id number] [address] [place] [address] [place] Hemoglobin (Bld) [Mass/Vol] 12.2 g/dL Normal 11.5-15.5 [facility] Comment on above: Order Comment: Speci men Type: BLOOD SPECIMEN Ordering Facility: [facility] Address: [address] [place] [address] Performed By: #### 2 4321-2, HSTNT, , 2776-07 #### [facility] CLIA [id number] [address] [place] [address] [place] Immature granulocytes (Bld) [#/Vol] 0.04 10*3/uL Normal <0.10 [facility] Comment on above: Order Comment: Speci men Type: BLOOD SPECIMEN Ordering Facility: [facility] Address: [address] [place] [address] Performed By: #### 2 4321-2, HSTNT, , 2776-07 #### [facility] CLIA [id number] [address] [place] [address] [place] Immature granulocytes/100 WBC (Bld) 0.7 % Normal [facility] Comment on above: Order Comment: Speci men Type: BLOOD SPECIMEN Ordering Facility: [facility] Address: [address] [place] [address] Performed By: #### 2 4321-2, HSTNT, , 2776-07 #### [facility] CLIA [id number] [address] [place] [address] [place] Lymphocytes (Bld) [#/Vol] 1.90 10*3/uL Normal 1.00-4.00 [facility] Comment on above: Order Comment: Speci men Type: BLOOD SPECIMEN Ordering Facility: [facility] Address: [address] [place] [address] Performed By: #### 2 4321-2, HSTNT, , 2776-07 #### [facility] CLIA [id number] [address] [place] [address] [place] Lymphocytes/100 WBC (Bld) 30.9 % Normal [facility] Comment on above: Order Comment: Speci men Type: BLOOD SPECIMEN Ordering Facility: [facility] Address: [address] [place] [address] Performed By: #### 2 4321-2, HSTNT, , 2776-07 #### [facility] CLIA [id number] [address] [place] [address] [place] MCH (RBC) [Entitic mass] 32.9 pg Normal 26.0-34.0 [facility] Comment on above: Order Comment: Speci men Type: BLOOD SPECIMEN Ordering Facility: [facility] Address: [address] [place] [address] Performed By: #### 2 4321-2, HSTNT, , 2776-07 #### [facility] CLIA [id number] [address] [place] [address] [place] MCHC (RBC) [Mass/Vol] 34.8 g/dL Normal 30.5-36.0 [facility] Comment on above: Order Comment: Speci men Type: BLOOD SPECIMEN Ordering Facility: [facility] Address: [address] [place] [address] Performed By: #### 2 4321-2, HSTNT, , 2777-1 #### [facility] CLIA [id number] [address] [place], [place] [address] [place] MCV (RBC) [Entitic vol] 94.6 fL Normal 80.0-100.0 [facility] Comment on above: Order Comment: Speci men Type: BLOOD SPECIMEN Ordering Facility: [facility] Address: [address] [place] [address] Performed By: #### 2 4321-2, HSTNT, , 2776-07 #### [facility] CLIA [id number] [address] [place] [address] [place] Monocytes (Bld) [#/Vol] 0.46 10*3/uL Normal <0.87 [facility] Comment on above: Order Comment: Speci men Type: BLOOD SPECIMEN Ordering Facility: [facility] Address: [address] [place] [address] Performed By: #### 2 4321-2, HSTNT, , 2776-07 #### [facility] CLIA [id number] [address] [place] [address] [place] Monocytes/100 WBC (Bld) 7.5 % Normal [facility] Comment on above: Order Comment: Speci men Type: BLOOD SPECIMEN Ordering Facility: [facility] Address: [address] [place] [address] Performed By: #### 2 4321-2, HSTNT, , 2776-07 #### [facility] CLIA [id number] [address] [place], [place] [address] [place] Neutrophils (Bld) [#/Vol] 3.64 10*3/uL Normal 1.45-7.50 [facility] Comment on above: Order Comment: Speci men Type: BLOOD SPECIMEN Ordering Facility: [facility] Address: [address] [place] [address] Performed By: #### 2 4321-2, HSTNT, , 2776-07 #### [facility] [facility] CLIA [id number] [address] [place] [address] [place] Neutrophils/100 WBC (Bld) 59.3 % Normal [facility] Comment on above: Order Comment: Speci men Type: BLOOD SPECIMEN Ordering Facility: [facility] Address: [address] [place] [address] Performed By: #### 2 4321-2, HSTNT, , 2776-07 #### [facility] CLIA [id number] [address] [place], [place] [id number] [place] Nucleated RBC (Bld) [#/Vol] 10*3/uL Normal <0.01 [facility] Comment on above: Order Comment: Speci men Type: BLOOD SPECIMEN Ordering Facility: [facility] Address: [address] [place] [address] Performed By: #### 2 4321-2, HSTNT, , 2776-07 #### [facility] CLIA [id number] [address] [place] [address] [place] Nucleated RBC/100 WBC (Bld) [Ratio] 0.0 /100 WBC Normal [facility] Comment on above: Order Comment: Speci men Type: BLOOD SPECIMEN Ordering Facility: [facility] Address: [address] [place] [address] Performed By: #### 2 4321-2, HSTNT, , 2776-07 #### [facility] CLIA [id number] [address] [place] [address] [place] Platelet mean volume (Bld) [Entitic vol] 9.9 fL Normal 9.0-12.7 [facility] Comment on above: Order Comment: Speci men Type: BLOOD SPECIMEN Ordering Facility: [facility] Address: [address] [place] [address] Performed By: #### 2 4321-2, HSTNT, , 2776-07 #### [facility] CLIA [id number] [address] [place] [address] [place] Platelets (Bld) [#/Vol] 143 10*3/uL Low 150-400 [facility] Comment on above: Order Comment: Speci men Type: BLOOD SPECIMEN Ordering Facility: [facility] Address: [address] [place] [address] Performed By: #### 2 4321-2, HSTNT, , 2776-07 #### [facility] CLIA [id number] [address] [place] [address] [place] RBC (Bld) [#/Vol] 3.71 10*6/uL Low 3.90-5.20 [facility] Comment on above: Order Comment: Speci men Type: BLOOD SPECIMEN Ordering Facility: [facility] Address: [address] [place] [address] Performed By: #### 2 4321-2, HSTNT, , 2776-07 #### [facility] CLIA [id number] [address] [place] [address] [place] WBC (Bld) [#/Vol] 6.14 10*3/uL Normal 3.70-11.00 [facility] Comment on above: Order Comment: Speci men Type: BLOOD SPECIMEN Ordering Facility: [facility] Address: [address] [place] [address] Performed By: #### 2 4321-2, HSTNT, , 2776-07 #### [facility] CLIA [id number] [address] [place] [address] [place] CNCOon 07-26-2024 CNCO Letter Text Normal [facility] CNDSon 07-26-2024 CNDS HNO ID: [id number] Author: KASSY VERDE APRN.COMMERCIAL LINES ACCOUNT ASSISTANT Service: General Surgery Author Type: Nurse Practitioner [...] IV access Intubation for surgery Anesthesia administration [facility]: Shey Obrien is a 73-year-old female with a PMHx of COPD, former smoker, EDWIN, HTN, GERD, dyslipidemia, TIA, memory loss, chronic back pain and insomnia who presented on 07/24/2024 for a paraesophageal hernia repair with Dr. Boyd. See operative report for details. She recovered in the PACU and transferred to the [facility] for the remainder of her [...] Commonly know (more content not included)... Normal [facility] Magnesium SerPl-mCncon 07-26 Magnesium [Mass/Vol] 2.0 mg/dL Normal 1.7-2.3 [facility] Comment on above: Order Comment: Speci men Type: BLOOD SPECIMEN Ordering Facility: [facility] Address: [address] [place] [address] Performed By: #### 2 4321-2, HSTNT, 42842-2, 2777-1 #### [facility] CLIA [id number] [address] [place] [address] [place] PT EDon 07-26-2024 PT ED HNO ID: [id number] Author: NOREEN RODNEY DTR Service: Nutrition Therapy Author Type: Call Taker Type: Patient Education Filed: 07/26/2024 14:04 Note [...] to Patient: Education Materials Provided Nutrition Education [facility]: Low Acid and Easy to Swallow Diet Follow-Up Plan: Complete - No need for follow-up Patient instructed to call with any further issues Contact information given. MNT Billing: $ Routine Care : 16-30 minutes SIGNATURE: Noreen Rodney DTR PATIENT NAME: Shey Obrien DATE: July 26, 2024 TIME: 2:04 PM PAGER: Normal [facility] Phosphate SerPl-mCncon 07-26 Phosphate [Mass/Vol] 2.5 mg/dL Low 2.7-4.8 [facility] Comment on above: Order Comment: Speckylie bliss Type: BLOOD SPECIMEN Ordering Facility: [facility] Address: [address] [place] [address] Performed By: #### 2 4321-2, HSTNT, 48302-8, 2777-1 #### [facility] CLIA [id number] [address] [place] [address] [place] HIGH SENSITIVITY TROPONIN To n 07-25-2024 Troponin T.cardiac High sensitivity method [Mass/Vol] 12 ng/L High <12 [facility] Comment on above: Order Comment: Fabiola bliss Type: BLOOD SPECIMEN Ordering Facility: [facility] Address: [address] [place] [address] Performed By: #### 2 4321-2, HSTNT, 24254-0, 2777-1 #### [facility] CLIA [id number] [address] [place] [address] [place] XR UPPER GI [...] (min:sec). Air kerma: 38.9 mGy. 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 No dilated bowel in [...] ESOPHAGEAL TRANSIT, LIKELY RELATED TO POSTOPERATIVE EDEMA. Tight Barrel Inspector: [facility] Transcribe Date/Time: Jul 25 2024 10:06A Dictated by : NAHID PACHECO MD This examination was interpreted and the report reviewed and electronically signed by: MARTHA CATALAN MD on Jul 25 2024 10:13AM EST [id number] Normal [facility] ANES POSTPROC EVALon 025 ANES POSTPROC EVAL HNO ID: [id number] Author: FLOR SNOW MD Service: ? Author Type: Physician Type: Anesthesia Postprocedure Evaluation Filed: 07/24/2024 15:38 Note Text: POST ANESTHESIA EVALUATION NOTE : 1950 Procedure Summary Date: 07/24/24 Room / Location: [place] [address] / [facility] Anesthesia Start: 1055 Anesthesia Stop: 1430 [...] July 24, 2024 TIME: 3:38 PM CSN: [id number] Normal [facility] ANES PRE-OPon 07-24-2024 ANES PRE-OP HNO ID: [id number] Author: FLOR SNOW MD Service: ? Author [...] and consent discussed: yes. Patient / Responsible Constitution Party agrees to proceed: yes Patient / [...] July 24, 2024 TIME: 9:15 AM CSN: [id number] Normal [facility] BRIEF OP NOTon 07-24-2024 BRIEF OP NOT HNO ID: [id number] Author: YAN MOSER, Naz Service: General Surgery Author Type: Physician Type: Brief Op Note Filed: 07/24/2024 14:16 Note Text: BRIEF OPERATIVE / PROCEDURE NOTE LOG ID: [id number] SURGERY/PROCEDURE DATE: 07/24/2024 INCISION/PROCEDURE START TIME: 11:37 AM INCISION CLOSE/PROCEDURE END TIME: 2:12 PM SURGEON(S)/PROCEDURALI ST(S) AND CLOCK SMITH(S): Surgeons and Role: * Xavier Boyd MD [...] 24, 2024 TIME: 2:15 PM PAGER/CONTACT #: [phone] Normal [facility] Basic metabolic 2000 panelon 07-24-2024 Anion gap [Moles/Vol] 15 mmol/L Normal 8-15 [facility] Comment on above: Order Comment: Speci men Type: BLOOD SPECIMEN Ordering Facility: [facility] Address: [address] [place] [address] Performed By: #### 2 4321-2, HSTNT, , 2776-07 #### [facility] CLIA [id number] [address] [place] [address] [place] Calcium [Mass/Vol] 9.3 mg/dL Normal 8.5-10.2 [facility] Comment on above: Order Comment: Speci men Type: BLOOD SPECIMEN Ordering Facility: [facility] Address: [address] [place] [address] Performed By: #### 2 4321-2, HSTNT, , 2776-07 #### [facility] CLIA [id number] [address] [place] [address] [place] Chloride [Moles/Vol] 105 mmol/L Normal 98-107 [facility] Comment on above: Order Comment: Speci men Type: BLOOD SPECIMEN Ordering Facility: [facility] Address: [address] [place] [address] Performed By: #### 2 4321-2, HSTNT, , 2776-07 #### [facility] CLIA [id number] [address] [place] [address] [place] CO2 [Moles/Vol] 21 mmol/L Low 22-30 [facility] Comment on above: Order Comment: Speci men Type: BLOOD SPECIMEN Ordering Facility: [facility] Address: [address] [place] [address] Performed By: #### 2 4321-2, HSTNT, , 2776- #### [facility] CLIA [id number] [address] [place] [address] [place] Creatinine [Mass/Vol] 0.83 mg/dL Normal 0.58-0.96 [facility] Comment on above: Order Comment: Fabiola bliss Type: BLOOD SPECIMEN Ordering Facility: [facility] Address: [address] [place] [address] Performed By: #### 2 4321-2, HSTNT, , 2776-07 #### [facility] CLIA [id number] [address] [place] [address] [place] Creatinine and Glomerular filtration rate.predicted panel (S/P/Bld) 75 mL/min/1.73m??? Normal >=60 [facility] Comment on above: Order Comment: Fabiola bliss Type: BLOOD SPECIMEN Ordering Facility: [facility] Address: [address] [place] [address] Result Comment: Ira mated Glomerular Filtration Rate [...] #### 2 4321-2, HSTNT, , 2776-07 #### [facility] CLIA [id number] [address] [place] [address] [place] Glucose [Mass/Vol] 171 mg/dL High 74-99 [facility] Comment on above: Order Comment: Fabiola men Type: BLOOD SPECIMEN Ordering Facility: [facility] Address: [address] [place] [address] Result Comment: The [place] Diabetes Association (ADA) provides guidance for cutoff [...] Standards of Medical Care in Diabetes 2016, [place] [employer]. Diabetes Care. 2016.39(Suppl 1). Performed By: #### 2 4321-2, HSTNT, , 2776-07 #### [facility] CLIA [id number] [address] [place] [address] [place] Potassium [Moles/Vol] 4.0 mmol/L Normal 3.7-5.1 [facility] Comment on above: Order Comment: Speci men Type: BLOOD SPECIMEN Ordering Facility: [facility] Address: [address] [place] [address] Performed By: #### 2 4321-2, HSTNT, , 2776-07 #### [facility] CLIA [id number] [address] [place] [address] [place] Sodium [Moles/Vol] 141 mmol/L Normal 136-144 [facility] Comment on above: Order Comment: Speci men Type: BLOOD SPECIMEN Ordering Facility: [facility] Address: [address] [place] [address] Performed By: #### 2 4321-2, HSTNT, , 2776-07 #### [facility] CLIA [id number] [address] [place] [address] [place] Urea nitrogen [Mass/Vol] 10 mg/dL Normal 7-21 [facility] Comment on above: Order Comment: Speci men Type: BLOOD SPECIMEN Ordering Facility: [facility] Address: [address] [place] [address] Performed By: #### 2 4321-2, HSTNT, , 2776-07 #### [facility] CLIA [id number] [address] [place] [address] [place] CBC W Auto Differential pane l (Bld)on 07-24-2024 Basophils (Bld) [#/Vol] 10*3/uL Normal <0.11 [facility] Comment on above: Order Comment: Speci men Type: BLOOD SPECIMEN Ordering Facility: [facility] Address: [address] [place] [address] Performed By: #### 5 7021-8 #### [facility] CLIA [id number] [address] [place] [address] [place] Basophils/100 WBC (Bld) 0.3 % Normal [facility] Comment on above: Order Comment: Speci men Type: BLOOD SPECIMEN Ordering Facility: [facility] Address: [address] [place] [address] Performed By: #### 5 7021-8 #### [facility] CLIA [id number] [address] [place] [address] [place] Differential cell count method Nom (Bld) Auto Normal [facility] Comment on above: Order Comment: Speci men Type: BLOOD SPECIMEN Ordering Facility: [facility] Address: [address] [place] [address] Performed By: #### 5 7021-8 #### [facility] CLIA [id number] [address] [place] [address] [place] Eosinophils (Bld) [#/Vol] 10*3/uL Normal <0.46 [facility] Comment on above: Order Comment: Speci men Type: BLOOD SPECIMEN Ordering Facility: [facility] Address: [address] [place] [address] Performed By: #### 5 7021-8 #### [facility] CLIA [id number] [address] [place] [address] [place] Eosinophils/100 WBC (Bld) 0.0 % Normal [facility] Comment on above: Order Comment: Speci men Type: BLOOD SPECIMEN Ordering Facility: [facility] Address: [address] [place] [address] Performed By: #### 5 7021-8 #### [facility] CLIA [id number] [address] [place] [address] [place] Erythrocyte distribution width (RBC) [Ratio] 13.9 % Normal 11.5-15.0 [facility] Comment on above: Order Comment: Speci men Type: BLOOD SPECIMEN Ordering Facility: [facility] Address: [address] [place] [address] Performed By: #### 5 7021-8 #### [facility] CLIA [id number] [address] [place] [address] [place] Hematocrit (Bld) [Volume fraction] 38.8 % Normal 36.0-46.0 [facility] Comment on above: Order Comment: Speci men Type: BLOOD SPECIMEN Ordering Facility: [facility] Address: [address] [place] [address] Performed By: #### 5 7021-8 #### [facility] CLIA [id number] [address] [place] [address] [place] Hemoglobin (Bld) [Mass/Vol] 13.4 g/dL Normal 11.5-15.5 [facility] Comment on above: Order Comment: Speci men Type: BLOOD SPECIMEN Ordering Facility: [facility] Address: [address] [place] [address] Performed By: #### 5 7021-8 #### [facility] CLIA [id number] [address] [place] [address] [place] Immature granulocytes (Bld) [#/Vol] 10*3/uL Normal <0.10 [facility] Comment on above: Order Comment: Speci men Type: BLOOD SPECIMEN Ordering Facility: [facility] Address: [address] [place] [address] Performed By: #### 5 7021-8 #### [facility] CLIA [id number] [address] [place] [address] [place] Immature granulocytes/100 WBC (Bld) 0.3 % Normal [facility] Comment on above: Order Comment: Speci men Type: BLOOD SPECIMEN Ordering Facility: [facility] Address: [address] [place] [address] Performed By: #### 5 7021-8 #### [facility] CLIA [id number] [address] [place] [address] [place] Lymphocytes (Bld) [#/Vol] 0.48 10*3/uL Low 1.00-4.00 [facility] Comment on above: Order Comment: Speci men Type: BLOOD SPECIMEN Ordering Facility: [facility] Address: [address] [place] [address] Performed By: #### 5 7021-8 #### [facility] CLIA [id number] [address] [place] [address] [place] Lymphocytes/100 WBC (Bld) 6.7 % Normal [facility] Comment on above: Order Comment: Speci men Type: BLOOD SPECIMEN Ordering Facility: [facility] Address: [address] [place] [address] Performed By: #### 5 7021-8 #### [facility] CLIA [id number] [address] [place] [address] [place] MCH (RBC) [Entitic mass] 32.5 pg Normal 26.0-34.0 [facility] Comment on above: Order Comment: Speci men Type: BLOOD SPECIMEN Ordering Facility: [facility] Address: [address] [place] [address] Performed By: #### 5 7021-8 #### [facility] CLIA [id number] [address] [place] [address] [place] MCHC (RBC) [Mass/Vol] 34.5 g/dL Normal 30.5-36.0 [facility] Comment on above: Order Comment: Speci men Type: BLOOD SPECIMEN Ordering Facility: [facility] Address: [address] [place] [address] Performed By: #### 5 7021-8 #### [facility] CLIA [id number] [address] [place] [address] [place] MCV (RBC) [Entitic vol] 94.2 fL Normal 80.0-100.0 [facility] Comment on above: Order Comment: Speci men Type: BLOOD SPECIMEN Ordering Facility: [facility] Address: [address] [place] [address] Performed By: #### 5 7021-8 #### [facility] CLIA [id number] [address] [place] [address] [place] Monocytes (Bld) [#/Vol] 0.23 10*3/uL Normal <0.87 [facility] Comment on above: Order Comment: Speci men Type: BLOOD SPECIMEN Ordering Facility: [facility] Address: [address] [place] [address] Performed By: #### 5 7021-8 #### [facility] CLIA [id number] [address] [place] [address] [place] Monocytes/100 WBC (Bld) 3.2 % Normal [facility] Comment on above: Order Comment: Speci men Type: BLOOD SPECIMEN Ordering Facility: [facility] Address: [address] [place] [address] Performed By: #### 5 7021-8 #### [facility] CLIA [id number] [address] [place] [address] [place] Neutrophils (Bld) [#/Vol] 6.43 10*3/uL Normal 1.45-7.50 [facility] Comment on above: Order Comment: Speci men Type: BLOOD SPECIMEN Ordering Facility: [facility] Address: [address] [place] [address] Performed By: #### 5 7021-8 #### [facility] CLIA [id number] [address] [place] [address] [place] Neutrophils/100 WBC (Bld) 89.5 % Normal [facility] Comment on above: Order Comment: Speci men Type: BLOOD SPECIMEN Ordering Facility: [facility] Address: [address] [place] [address] Performed By: #### 5 7021-8 #### [facility] CLIA [id number] [address] [place] [address] [place] Nucleated RBC (Bld) [#/Vol] 10*3/uL Normal <0.01 [facility] Comment on above: Order Comment: Speci men Type: BLOOD SPECIMEN Ordering Facility: [facility] Address: [address] [place] [address] Performed By: #### 5 7021-8 #### [facility] CLIA [id number] [address] [place] [address] [place] Nucleated RBC/100 WBC (Bld) [Ratio] 0.0 /100 WBC Normal [facility] Comment on above: Order Comment: Speci men Type: BLOOD SPECIMEN Ordering Facility: [facility] Address: [address] [place] [address] Performed By: #### 5 7021-8 #### [facility] CLIA [id number] [address] [place] [address] [place] Platelet mean volume (Bld) [Entitic vol] 10.0 fL Normal 9.0-12.7 [facility] Comment on above: Order Comment: Speci men Type: BLOOD SPECIMEN Ordering Facility: [facility] Address: [address] [place] [address] Performed By: #### 5 7021-8 #### [facility] CLIA [id number] [address] [place] [address] [place] Platelets (Bld) [#/Vol] 144 10*3/uL Low 150-400 [facility] Comment on above: Order Comment: Speci men Type: BLOOD SPECIMEN Ordering Facility: [facility] Address: [address] [place] [address] Performed By: #### 5 7021-8 #### [facility] CLIA [id number] [address] [place] [address] [place] RBC (Bld) [#/Vol] 4.12 10*6/uL Normal 3.90-5.20 [facility] Comment on above: Order Comment: Speci men Type: BLOOD SPECIMEN Ordering Facility: [facility] Address: [address] [place] [address] Performed By: #### 5 7021-8 #### [facility] CLIA [id number] [address] [place] [address] [place] WBC (Bld) [#/Vol] 7.18 10*3/uL Normal 3.70-11.00 [facility] Comment on above: Order Comment: Speci men Type: BLOOD SPECIMEN Ordering Facility: [facility] Address: [address] [place] [address] Performed By: #### 5 7021-8 #### [facility] CLIA [id number] [address] [place] [address] [place] HIGH SENSITIVITY TROPONIN To n 07-24-2024 Troponin T.cardiac High sensitivity method [Mass/Vol] 8 ng/L Normal <12 [facility] Comment on above: Order Comment: Speci men Type: BLOOD SPECIMEN Ordering Facility: [facility] Address: [address] [place] [address] Performed By: #### 2 4321-2, HSTNT, 52364-7, 2777-1 #### [facility] CLIA [id number] [address] [place] [address] [place] Magnesium SerPl-mCncon 07-24 Magnesium [Mass/Vol] 1.7 mg/dL Normal 1.7-2.3 [facility] Comment on above: Order Comment: Speci men Type: BLOOD SPECIMEN Ordering Facility: [facility] Address: [address] [place] [address] Performed By: #### 2 4321-2, HSTNT, 20164-0, 2777-1 #### [facility] CLIA [id number] [address] [place] [address] [place] [address] [place] OPERATIVE NOon 07-24-2024 OPERATIVE NO HNO ID: [id number] Author: XAVIER BOYD MD Service: General Surgery Author Type: Physician Type: Operative Report Filed: 07/24/2024 14:31 Note Text: OPERATIVE/PROCEDURE REPORT LOG ID: [id number] SURGERY/PROCEDURE DATE: 07/24/2024 INCISION/PROCEDURE START TIME: 11:37 AM INCISION CLOSE/PROCEDURE END TIME: 2:12 PM SURGEON(S)/PROCEDURALI ST(S) AND CLOCK SMITH(S): Surgeons and Role: * Xavier Boyd MD [...] the left and right subcostal regions. An wardrobe assistant 5 mm trocar was placed in [...] retroesophageal window was created and a 1/4? [place] drain was used to encircle the esophagus [...] required to assist with this case. The wardrobe assistant performed retraction and assisted with exposure. PRE-OP/PRE-PROCEDURE DIAGNOSIS: Type III paraesophageal hernia, symptomatic POST-OP/POST-PROCEDURE DIAGNOSIS: Same as Preop ESTIMATED BLOOD LOSS: 30 mls SPECIMENS: None IMPLANTABLE DEVICES: NONE DRAINS: None COMPLICATIONS: None CLOSURE TECHNIQUE: Primary PARTICIPATION IN SURGERY/PROCEDURE: I/primary surgeon/proceduralist performed the procedure with assistance. SIGNATURE: Xavier Boyd MD PATIENT NAME: Shey Obrien DATE: July 24, 2024 TIME: 2:27 PM Normal [facility] Phosphate SerPl-mCncon 07-24 Phosphate [Mass/Vol] 3.6 mg/dL Normal 2.7-4.8 [facility] Comment on above: Order Comment: Speci men Type: BLOOD SPECIMEN [facility] Facility[facility] Address: [address] [place] [address] Performed By: #### 2 4321-2, HSTNT, , 2776-07 #### [facility] CLIA [id number] [address] [place] [address] [place] CBC W Auto Differential pane l (Bld)on 07-23-2024 Basophils (Bld) [#/Vol] 0.04 10*3/uL Normal <0.11 [facility] Comment on above: Order Comment: Speci men Type: BLOOD SPECIMEN Ordering Facility: [facility] Address: [address] [place] [address] Performed By: #### 2 4321-2, HSTNT, , 2776-07 #### [facility] CLIA [id number] [address] [place] [address] [place] Basophils/100 WBC (Bld) 0.8 % Normal [facility] Comment on above: Order Comment: Speci men Type: BLOOD SPECIMEN [facility] [facility] Address: [address] [place] [address] Performed By: #### 2 4321-2, HSTNT, , 2776-07 #### [facility] CLIA [id number] [address] [place] [address] [place] Differential cell count method Nom (Bld) Auto Normal [facility] Comment on above: Order Comment: Speci men Type: BLOOD SPECIMEN Ordering Facility: [facility] Address: [address] [place] [address] Performed By: #### 2 4321-2, HSTNT, , 2776-07 #### [facility] CLIA [id number] [address] [place] [address] [place] Eosinophils (Bld) [#/Vol] 0.18 10*3/uL Normal <0.46 [facility] Comment on above: Order Comment: Speci men Type: BLOOD SPECIMEN Ordering Facility: [facility] Address: [address] [place] [address] Performed By: #### 2 4321-2, HSTNT, , 2776-07 #### [facility] CLIA [id number] [address] [place] [address] [place] Eosinophils/100 WBC (Bld) 3.7 % Normal [facility] Comment on above: Order Comment: Speci men Type: BLOOD SPECIMEN Ordering Facility: [facility] Address: [address] [place] [address] Performed By: #### 2 4321-2, HSTNT, , 2776-07 #### [facility] CLIA [id number] [address] [place] [address] [place] Erythrocyte distribution width (RBC) [Ratio] 13.9 % Normal 11.5-15.0 [facility] Comment on above: Order Comment: Speci men Type: BLOOD SPECIMEN Ordering Facility: [facility] Address: [address] [place] [address] Performed By: #### 2 4321-2, HSTNT, , 2776-07 #### [facility] CLIA [id number] [address] [place] [address] [place] Hematocrit (Bld) [Volume fraction] 39.0 % Normal 36.0-46.0 [facility] Comment on above: Order Comment: Speci men Type: BLOOD SPECIMEN Ordering Facility: [facility] Address: [address] [place] [address] Performed By: #### 2 4321-2, HSTNT, , 2776-07 #### [facility] CLIA [id number] [address] [place] [address] [place] Hemoglobin (Bld) [Mass/Vol] 13.4 g/dL Normal 11.5-15.5 [facility] Comment on above: Order Comment: Speci men Type: BLOOD SPECIMEN Ordering Facility: [facility] Address: [address] [place] [address] Performed By: #### 2 4321-2, HSTNT, , 2776-07 #### [facility] CLIA [id number] [address] [place] [address] [place] Immature granulocytes (Bld) [#/Vol] 10*3/uL Normal <0.10 [facility] Comment on above: Order Comment: Speci men Type: BLOOD SPECIMEN Ordering Facility: [facility] Address: [address] [place] [address] Performed By: #### 2 4321-2, HSTNT, , 2776-07 #### [facility] CLIA [id number] [address] [place] [address] [place] Immature granulocytes/100 WBC (Bld) 0.4 % Normal [facility] Comment on above: Order Comment: Speci men Type: BLOOD SPECIMEN Ordering Facility: [facility] Address: [address] [place] [address] Performed By: #### 2 4321-2, HSTNT, , 2776-07 #### [facility] CLIA [id number] [address] [place] [address] [place] Lymphocytes (Bld) [#/Vol] 2.00 10*3/uL Normal 1.00-4.00 [facility] Comment on above: Order Comment: Speci men Type: BLOOD SPECIMEN Ordering Facility: [facility] Address: [address] [place] [address] Performed By: #### 2 4321-2, HSTNT, , 2776-07 #### [facility] CLIA [id number] [address] [place] [address] [place] Lymphocytes/100 WBC (Bld) 41.3 % Normal [facility] Comment on above: Order Comment: Speci men Type: BLOOD SPECIMEN Ordering Facility: [facility] Address: [address] [place] [address] Performed By: #### 2 4321-2, HSTNT, , 2776-07 #### [facility] CLIA [id number] [address] [place] [address] [place] MCH (RBC) [Entitic mass] 32.5 pg Normal 26.0-34.0 [facility] Comment on above: Order Comment: Speci men Type: BLOOD SPECIMEN Ordering Facility: [facility] Address: [address] [place] [address] Performed By: #### 2 4321-2, HSTNT, , 2776-07 #### [facility] CLIA [id number] [address] [place] [address] [place] MCHC (RBC) [Mass/Vol] 34.4 g/dL Normal 30.5-36.0 [facility] Comment on above: Order Comment: Speci men Type: BLOOD SPECIMEN Ordering Facility: [facility] Address: [address] [place] [address] Performed By: #### 2 4321-2, HSTNT, , 2776-07 #### [facility] CLIA [id number] [address] [place], [place] [address] [place] MCV (RBC) [Entitic vol] 94.7 fL Normal 80.0-100.0 [facility] Comment on above: Order Comment: Speci men Type: BLOOD SPECIMEN Ordering Facility: [facility] Address: [address] [place] [address] Performed By: #### 2 4321-2, HSTNT, , 2776-07 #### [facility] CLIA [id number] [address] [place] [address] [place] Monocytes (Bld) [#/Vol] 0.30 10*3/uL Normal <0.87 [facility] Comment on above: Order Comment: Speci men Type: BLOOD SPECIMEN Ordering Facility: [facility] Address: [address] [place] [address] Performed By: #### 2 4321-2, HSTNT, , 2776-07 #### [facility] CLIA [id number] [address] [place] [address] [place] Monocytes/100 WBC (Bld) 6.2 % Normal [facility] Comment on above: Order Comment: Speci men Type: BLOOD SPECIMEN Ordering Facility: [facility] Address: [address] [place] [address] Performed By: #### 2 4321-2, HSTNT, , 2776-07 #### [facility] CLIA [id number] [address] [place] [address] [place] Neutrophils (Bld) [#/Vol] 2.30 10*3/uL Normal 1.45-7.50 [facility] Comment on above: Order Comment: Speci men Type: BLOOD SPECIMEN Ordering Facility: [facility] Address: [address] [place] [address] Performed By: #### 2 4321-2, HSTNT, , 2776-07 #### [facility] CLIA [id number] [address] [place] [address] [place] Neutrophils/100 WBC (Bld) 47.6 % Normal [facility] Comment on above: Order Comment: Speci men Type: BLOOD SPECIMEN Ordering Facility: [facility] Address: [address] [place] [address] Performed By: #### 2 4321-2, HSTNT, , 2776-07 #### [facility] CLIA [id number] [address] [place] [address] [place] Nucleated RBC (Bld) [#/Vol] 10*3/uL Normal <0.01 [facility] Comment on above: Order Comment: Speci men Type: BLOOD SPECIMEN Ordering Facility: [facility] Address: [address] [place] [address] Performed By: #### 2 4321-2, HSTNT, , 2776-07 #### [facility] CLIA [id number] [address] [place] [address] [place] Nucleated RBC/100 WBC (Bld) [Ratio] 0.0 /100 WBC Normal [facility] Comment on above: Order Comment: Speci men Type: BLOOD SPECIMEN Ordering Facility: [facility] Address: [address] [place] [address] Performed By: #### 2 4321-2, HSTNT, , 2776-07 #### [facility] CLIA [id number] [address] [place] [address] [place] Platelet mean volume (Bld) [Entitic vol] 10.2 fL Normal 9.0-12.7 [facility] Comment on above: Order Comment: Speci men Type: BLOOD SPECIMEN Ordering Facility: [facility] Address: [address] [place] [address] Performed By: #### 2 4321-2, HSTNT, , 2776-07 #### [facility] CLIA [id number] [address] [place] [address] [place] Platelets (Bld) [#/Vol] 169 10*3/uL Normal 150-400 [facility] Comment on above: Order Comment: Speci men Type: BLOOD SPECIMEN Ordering Facility: [facility] Address: [address] [place] [address] Performed By: #### 2 4321-2, HSTNT, 95007-2, 2776- #### [facility] CLIA [id number] [address] [place] [address] [place] RBC (Bld) [#/Vol] 4.12 10*6/uL Normal 3.90-5.20 [facility] Comment on above: Order Comment: Speci men Type: BLOOD SPECIMEN Ordering Facility: [facility] Address: [address] [place] [address] Performed By: #### 2 4321-2, HSTNT, , 2776- #### [facility] CLIA [id number] [address] [place] [address] [place] WBC (Bld) [#/Vol] 4.84 10*3/uL Normal 3.70-11.00 [facility] Comment on above: Order Comment: Speci men Type: BLOOD SPECIMEN Ordering Facility: [facility] Address: [address] [place] [address] Performed By: #### 2 4321-2, HSTNT, , 2776- #### [facility] CLIA [id number] [address] [place] [address] [place] [facility] CBC W AUTO DIFF BLDon Basophils/100 WBC (Bld) 0.8 % [facility] BASOPHILS # BLD AUTO 0.04 [facility] DIFFERENTIAL METHOD BLD Auto [facility] EOSINOPHIL # BLD AUTO 0.18 [facility] LYMPHOCYTES # BLD AUTO 2 [facility] MONOCYTES # BLD AUTO 0.3 [facility] NEUTROPHILS # BLD AUTO 2.3 [facility] NRBC # BLD AUTO <0.01 [facility] NRBC/100 WBC BLD-RTO 0 /100 WBC [facility] PLATELET # BLD AUTO 169 [facility] PMV BLD AUTO 10.2 fL 9.0 - 12.7 fL [facility] WBC # BLD AUTO 4.84 [facility] Eosinophils/100 WBC (Bld) 3.7 % [facility] Erythrocyte distribution width (RBC) [Ratio] 13.9 % 11.5 - 15.0 % [facility] Hematocrit (Bld) [Volume fraction] 39 % 36.0 - 46.0 % [facility] Hemoglobin (Bld) [Mass/Vol] 13.4 g/dL 11.5 - 15.5 g/dL [facility] IMM GRANULOCYTES # BLD AUTO <0.03 [facility] IMM GRANULOCYTES/LEUK NFR BLD AUTO 0.4 % [facility] Lymphocytes/100 WBC (Bld) 41.3 % [facility] MCH (RBC) [Entitic mass] 32.5 pg 26.0 - 34.0 pg [facility] MCHC (RBC) [Mass/Vol] 34.4 g/dL 30.5 - 36.0 g/dL [facility] MCV (RBC) [Entitic vol] 94.7 fL 80.0 - 100.0 fL [facility] Monocytes/100 WBC (Bld) 6.2 % [facility] Neutrophils/100 WBC (Bld) 47.6 % [facility] RBC (Bld) [#/Vol] 4.12 10*6/uL 3.90 - 5.2 0 m/uL [facility] Specimen Type: BLOOD SPECIMEN Ordering Facility: [facility] Address: [address] [place] [address] Original [facility] TYPEon 025 ABO B Normal [facility] Comment on above: Order Comment: Speci men Type: BLOOD SPECIMEN Ordering Facility: [facility] Address: [address] [place] [address] Performed By: #### 2 4321-2, HSTNT, 76713-0, 2777-1 #### [facility] CLIA [id number] [address] [place], [place] [id number] [address] [place] Rh Nom (Bld) Positive Normal [facility] Comment on above: Order Comment: Speci men Type: BLOOD SPECIMEN Ordering Facility: [facility] Address: [address] [place] [address] Performed By: #### 2 4321-2, HSTNT, , 2776- #### [facility] CLIA [id number] [address] [place] [address] [place] ABO group Nom (Bld) B [facility] Rh Nom (Bld) Positive [facility] Comprehensive metabolic 2000 panelon 07-23-2024 Albumin [Mass/Vol] 4.2 g/dL Normal 3.9-4.9 [facility] Comment on above: Order Comment: Speci men Type: BLOOD SPECIMEN Ordering Facility[facility] Address: [address] [place] [address] Performed By: #### 2 4321-2, HSTNT, , 2776-07 #### [facility] CLIA [id number] [address] [place] [address] [place] ALP [Catalytic activity/Vol] 111 U/L Normal 34-123 [facility] Comment on above: Order Comment: Speci men Type: BLOOD SPECIMEN Ordering Facility: [facility] Address: [address] [place] [address] Performed By: #### 2 4321-2, HSTNT, , 2776-07 #### [facility] CLIA [id number] [address] [place], [place] [address] [place] ALT [Catalytic activity/Vol] 26 U/L Normal 7-38 [facility] Comment on above: Order Comment: Speci men Type: BLOOD SPECIMEN Ordering Facility: [facility] Address: [address] [place] [address] Performed By: #### 2 4321-2, HSTNT, , 2776- #### [facility] CLIA [id number] [address] [place], [place] [address] [place] Anion gap [Moles/Vol] 10 mmol/L Normal 8-15 [facility] Comment on above: Order Comment: Speci men Type: BLOOD SPECIMEN Ordering Facility: [facility] Address: [address] [place] [address] Performed By: #### 2 4321-2, HSTNT, , 2776- #### [facility] CLIA [id number] [address] [place], [place] [address] [place] AST [Catalytic activity/Vol] 28 U/L Normal 13-35 [facility] Comment on above: Order Comment: Speci men Type: BLOOD SPECIMEN Ordering Facility: [facility] Address: [address] [place] [address] Performed By: #### 2 4321-2, HSTNT, , 2776-07 #### [facility] CLIA [id number] [address] [place] [address] [place] Bilirubin [Mass/Vol] 0.5 mg/dL Normal 0.2-1.3 [facility] Comment on above: Order Comment: Speci men Type: BLOOD SPECIMEN Ordering Facility: [facility] Address: [address] [place] [address] Performed By: #### 2 4321-2, HSTNT, , 2776-07 #### [facility] CLIA [id number] [address] [place] [address] [place] Calcium [Mass/Vol] 9.4 mg/dL Normal 8.5-10.2 [facility] Comment on above: Order Comment: Speci men Type: BLOOD SPECIMEN Ordering Facility: [facility] Address: [address] [place] [address] Performed By: #### 2 4321-2, HSTNT, , 2776- #### [facility] CLIA [id number] [address] [place] [address] [place] Chloride [Moles/Vol] 108 mmol/L High 98-107 [facility] Comment on above: Order Comment: Speci men Type: BLOOD SPECIMEN Ordering Facility: [facility] Address: [address] [place] [address] Performed By: #### 2 4321-2, HSTNT, , 2776- #### [facility] CLIA [id number] [address] [place] [address] [place] CO2 [Moles/Vol] 23 mmol/L Normal 22-30 [facility] Comment on above: Order Comment: Speci men Type: BLOOD SPECIMEN Ordering Facility: [facility] Address: [address] [place] [address] Performed By: #### 2 4321-2, HSTNT, , 2776- #### [facility] CLIA [id number] [address] [place] [address] [place] Creatinine [Mass/Vol] 0.99 mg/dL High 0.58-0.96 [facility] Comment on above: Order Comment: Speci men Type: BLOOD SPECIMEN Ordering Facility[facility] Address: [address] [place] [address] Performed By: #### 2 4321-2, HSTNT, , 2776-07 #### [facility] CLIA [id number] [address] [place] [address] [place] Creatinine and Glomerular filtration rate.predicted panel (S/P/Bld) 61 mL/min/1.73m??? Normal >=60 [facility] Comment on above: Order Comment: Speci men Type: BLOOD SPECIMEN Ordering Facility: [facility] Address: [address] [place] [address] Result Comment: Ira mated Glomerular Filtration Rate [...] #### 2 4321-2, HSTNT, , 2776-07 #### [facility] CLIA [id number] [address] [place] [address] [place] Glucose [Mass/Vol] 155 mg/dL High 74-99 [facility] Comment on above: Order Comment: Fabiola bliss Type: BLOOD SPECIMEN Ordering Facility: [facility] Address: [address] [place] [address] Result Comment: The [place] Diabetes [employer] (ADA) provides guidance for cutoff [...] Standards of Medical Care in Diabetes 2016, [place] [employer]. Diabetes Care. 2016.39(Suppl 1). Performed By: #### 2 4321-2, HSTNT, , 2776-07 #### [facility] CLIA [id number] [address] [place] [address] [place] Potassium [Moles/Vol] 4.3 mmol/L Normal 3.7-5.1 [facility] Comment on above: Order Comment: Fabiola bliss Type: BLOOD SPECIMEN Ordering Facility: [facility] Address: [address] [place] [address] Performed By: #### 2 4321-2, HSTNT, , 2776-07 #### [facility] CLIA [id number] [address] [place] [address] [place] Protein [Mass/Vol] 6.9 g/dL Normal 6.3-8.0 [facility] Comment on above: Order Comment: Speci men Type: BLOOD SPECIMEN Ordering Facility[facility] Address: [address] [place] [address] Performed By: #### 2 4321-2, HSTNT, , 2776- #### [facility] CLIA [id number] [address] [place] [address] [place] Sodium [Moles/Vol] 141 mmol/L Normal 136-144 [facility] Comment on above: Order Comment: Speci men Type: BLOOD SPECIMEN Ordering Facility[facility] Address: [address] [place] [address] Performed By: #### 2 4321-2, HSTNT, , 2776- #### [facility] CLIA [id number] [address] [place] [address] [place] Urea nitrogen [Mass/Vol] 13 mg/dL Normal 7-21 [facility] Comment on above: Order Comment: Speci men Type: BLOOD SPECIMEN Ordering Facility: [facility] Address: [address] [place] [address] Performed By: #### 2 4321-2, HSTNT, , 2776- #### [facility] CLIA [id number] [address] [place], [place] [address] [place] ECG COMPLETEon 07-23-2024 ECG COMPLETE Ventricular Rate : 6 6 BPM Atrial Rate : 66 BPM P-R Interval : 158 ms QRS Duration : 78 ms Q-T Interval : 404 ms QTC Calculation(Bazett) : 423 ms Calculated P [place] : 32 degrees Calculated R [place] : 14 degrees Calculated T [place] : 54 degrees NORMAL SINUS RHYTHM NORMAL ECG Confirmed by MD HAKAN, MAIRA ([id number]) on 07/29/2024 12:16:17 PM NAME : SHEY OBRIEN PID : [id number] : 1950 Gender : Female Race : ORD : [id number] Procedure Date : Jul 23 2024 12:08:10 Edit Date : Jul 29 2024 12:16:18 Diagnosis: NORMAL SINUS RHYTHM NORMAL ECG Confirmed by MD MCCLENDON HEBA ([id number]) on 07/29/2024 12:16:17 PM Test Reason : Location : 119 : A17 A17 Overread By : MD MCCLENDON HEBA Edited By : MD MCCLENDON HEBA Referred By : XAVIER BOYD Acquired by : SADE HA [facility] HISTORY PHYSICALon HISTORY PHYSICAL HNO ID: [id number] Author: JAMIL DELACRUZ PA-C Service: ? Author Type: Physician Technical Publications Manager Type: H&P Filed: 07/23/2024 14:03 Note Text: [...] Thick neck: yes Lip Bite Test: I Microretrognathia/Micr onagthia/Recessed Chin: No DENTAL Dentures, upper: complete. Dentures, [...] Imm Admin: COVID-19 vaccine, age 12+ yr (Wandera COMIRNAT) 05/03/2022 Imm Admin: COVID-19 vaccine, age 12+ yr, bivalent (PFIZER-BIONTECH) 04/12/2021 Imm Admin: COVID-19 original vaccine, age 12+ yr, monovalent (PFIZER-BIONTECH - PURPLE TOP) Only the first 3 [...] anticoagulation therap (more content not included)... Normal [facility] PT panel Coag (PPP)on 2024 INR Coag (PPP) [Relative time] 1.1 {INR} Normal 0.9-1.3 [facility] Comment on above: Order Comment: Speci men Type: BLOOD SPECIMEN Ordering Facility: [facility] Address: [address] [place], [place] [address] Result Comment: Francesco min K Antagonist (VKA) Therapeutic Range: INR 2 to 3 (Target INR of 2.5) Note: For patients treated with VKA drugs, such as warfarin, the [place] [employer] 2012 Guideline recommends [...] GH, et al. Chest 2012, 141:7S-47S Keisha BORJAS, et al. [facility] 2017, 70: 252-289 Performed By: #### 2 4321-2, HSTNT, , 2776- #### [facility] CLIA [id number] [address] [place] [address] [place] PT Coag (PPP) [Time] 11.4 s Normal 9.7-13.0 [facility] Comment on above: Order Comment: Speci men Type: BLOOD SPECIMEN Ordering Facility[facility] Address: [address] [place] [address] Performed By: #### 2 4321-2, HSTNT, , 2776- #### [facility] CLIA [id number] [address] [place] [address] [place] TYPE AND SCREEN,30 DAYon ABO B Normal [facility] Comment on above: Order Comment: Speci men Type: BLOOD SPECIMEN Ordering Facility[facility] Address: [address] [place] [address] Performed By: #### 2 4321-2, HSTNT, , 2776- #### [facility] CLIA [id number] [address] [place] [address] [place] Rh Nom (Bld) Positive Normal [facility] Comment on above: Order Comment: Speci men Type: BLOOD SPECIMEN Ordering Facility[facility] Address: [address] [place] [address] Performed By: #### 2 4321-2, HSTNT, , 2776- #### [facility] CLIA [id number] [address] XR CHEST 2V FRONTAL/LATon XR CHEST 2V [...] soft tissues: Unremarkable. IMPRESSION: Large hiatal hernia. Tight Barrel Inspector: PSCB Transcribe Date/Time: Jul 24 2024 7:28A Dictated by : JARVIS HUGO MD This examination was interpreted and the report reviewed and electronically signed by: JARVIS HUGO MD on Jul 24 2024 7:30AM EST [id number] Normal [facility] aPTT PPPon 07-23-2024 aPTT Coag (PPP) [Time] 25.5 s Normal 23.0-32.4 [facility] Comment on above: Order Comment: Speci men Type: BLOOD SPECIMEN Ordering Facility[facility] Address: [address] [place] [address] Performed By: #### 2 4321-2, HSTNT, 30324-3, 2777-1 #### [facility] CLIA [id number] [address] [place], [place] [address] [address] CNOVon 04-29-2024 CNOV Office Visit (GENN ) SHEY OBRIEN ([id number]) 1950 F Date Time Provider Department 04/29/24 [...] No Yan Moser 04/29/2024 12:10 PM Signed [facility] Abdominal [facility] - HISTORY AND PHYSICAL SUBJECTIVE: [...] Negative. Allergic/Immunologic: Negative. Neurological: Negative. Hematological: Negative. Psychiatric/Behavioral : Negative. Prior to Admission medications as of [...] Consents obtained Yan Moser MD General Surgery Beffa, Xavier Mayfield MD 04/29/2024 12:10 PM Signed [...] and discussed (more content not included)... [facility] CNPNon 04-22-2024 CNPN Telephone (GENSMN) SHEY OBRIEN ([id number]) 1950 F Date Time Provider Department 04/22/24 ASHLIE CALDERON During your visit today, we recorded the following information about you: Ashlie Calderon 04/22/2024 5:39 PM Signed Spoke with PT she state no prior surgeries Allergies As of Date: 04/22/2024 (Not on File) Date Reviewed: Never Reviewed Problem List As Of Date: 04/22/2024 (None) Encounter Status:Closed by ASHLIE CALDERON on 04/22/24 Normal [facility] Surgical Pathology Reporton 03-26-2024 Surgical Pathology Report [address] [place] [address]- Surgical Pathology Report Collected Date/Time: 03/20/2024 12:52 EDT Pathologist: Cristina OLIVO, Pete Received Date/Time: 03/21/2024 08:07 EDEri Spears MD, Dafne Spears MD, Dafne Torres 07 Surgical [...] is entirely submitted in one cassette. (DC) DC:[facility] Microscopic Description Microscopic examination performed unless gross only specified. The use of one or more reagents in the above tests is regulated as an analyte specific reagent (ASR). The test or tests are ordered following initial H&E microscopic examination. The performance characteristics were determined by the Laboratory of [facility]. They have not been cleared or approved by the US Food and Drug Administration. The FDA has determined that such clearance or approval is not necessary. These tests are used for clinical purposes. They should not be regarded as investigational or for research. Appropriate positive and negative controls are performed and are acceptable. Normal [facility] Comment on above: Performed By: #### [id number] #### [facility] Laboratory [address] [place] [address] XR Esophaguson 03-26-2024 XR Esophagus Exam Date/Time: [...] mGy = 15.80 DAP = 464.17 Normal [facility] Main OR Intraoperative Recor don 03-22-2024 Main OR Intraoperative Record Main OR Intraoperative Record IntraOp Document Type FT Summary Primary Physician: Dafne Spears MD Finalized Date/Time: 03/22/24 14:46:15 Pt. Name: SHEY OBRIEN/Sex: 1950 Female Med Rec #: [id number] Physician: Dafne Spears MD Financial #: [id number] Pt. Type: O Room/Bed: / Admit/Disch: 03/20/24 [...] 2 Entry 3 Case Attendee Catalina Wolff CRNA PUBLIC RELATIONS ANALYST, Анна Spears MD, Dafne Torres Role Performed FILTER TENDER Scrub - Primary Surgeon - Primary Time In 03/20/24 12:44:00 03/20/24 12:44:00 03/20/24 12:44:00 Time Out 03/20/24 12:56:00 03/20/24 12:56:00 03/20/24 12:56:00 Procedure EGD(.) EGD(.) EGD(.) Comments Dr. Spears supervising procedure. Last Modified By: Mynor FORBES, Violette Lopez RN, Essence Pinto RN 03/22/24 14:45:45 03/20/24 12:56:36 03/20/24 12:56:36 Entry 4 Case Attendee Essence Lopez RN Role Performed Housefellow - Primary Time In 03/20/24 12:44:00 Time [...] Given Participants Dianelys FORBES, Yovanny Ellington MD, Dafne Torres, Essence Lopez RN [...] and tissue Entry 1 Skin Integrity Intact, Solon, Warm, & Skin Abnormality No Dry Outcomes [...] Extended Positioning (more content not included)... Normal [facility] Discharge Instructionson Discharge Instructions Discharge Instructions KARYNSHEY :1950 MRN:[id number] Visit Date:03/20/2024 Inpatient Discharge Instructions Your Care [...] mg Tab) fluticasone nasal (Flonase 0.05 mg/inh Luckey) losartan (losartan 25 mg Tab) multivitamin with minerals (One A Day Women's Complete) pantoprazole (Pantoprazole [address] Tab) vitamin E zolpidem (zolpidem 12.5 mg oral ER Tab) Procedure History Esophagogastroduodenos copy (03/20/2024), Colonoscopy (10/13/2023), Hand tendon repaired, Meniscal [...] Up with Yovanny OLIVO, Dafne Torres, [place], [facility] When: Comments: Call for any [...] Unchanged fluticasone nasal (Flonase 0.05 mg/ inh Luckey) 2 Sprays Nasal Inhalation Every day Unchanged [...] get better (more content not included)... Normal [facility] Comment on above: Result Comment: Elec tronically Signed By: Kassy Barker I\.br\Date and Time Signed: 03/20/24 13:08 EDT Inpatient Patient Summaryon 03-20-2024 Inpatient Patient Summary Inpatient Patient Summary [place] [id number] [facility] Clinical Discharge Instructions PERSON INFORMATION Name: SHEY OBRIEN PHYSICIANS Admitting Physician: Dafne Spears MD Attending Physician: Dafne Spears MD PCP: LARTELL JACK MD Discharge Diagnosis: Comment: PATIENT EDUCATION [...] (at bedtime). fluticasone nasal (Flonase 0.05 mg/inh Luckey) 2 Sprays Nasal Inhalation every day. losartan [...] bedtime) as needed for sleep. Comment: Kary [facility] Main OR PACU I Recordon 03-10 Main OR PACU I Record Main OR PACU I Rec ord PACU Phase I Document Type FT Summary Primary Physician: Dafne Spears MD Finalized Date/Time: 03/20/24 13:37:02 Pt. Name: SHEY OBRIEN Tamie/Sex: 1950 Female Med Rec #: [id number] Physician: Dafne Spears MD Financial #: [id number] Pt. Type: O Room/Bed: / Admit/Disch: 03/20/24 [...] By: Kassy Barker I 03/20/24 13:37 Normal [facility] Main OR Preoperative Recordo n 03-20-2024 Main OR Preoperative Record Main OR Preoperative Record Holding Area Document Type FT Summary Primary Physician: Dafne Spears MD Finalized Date/Time: 03/20/24 11:17:32 Pt. Name: SHEY OBRIEN/Sex: 1950 Female Med Rec #: [id number] Physician: Dafne Spears MD Financial #: [id number] Pt. Type: O Room/Bed: / Admit/Disch: 03/20/24 10:57:44 - Institution: Case Times Holding FT Pre-Care Text: Verifies consent for planned procedure, identifies individual values and wishes concerning care, includes family members in perioperative teaching Secures patient's records' belongings, and valuables, maintains patient's dignity and privacy, and maintains patient confidentiality Entry 1 In Holding 03/20/24 11:05:00 Outcomes Met? Yes Last Modified By: JohnEssence dominguez RN 03/20/24 11:16:44 Post-Care Text: The patient [...] By: Essence Lopez RN 03/20/24 11:17 Normal [facility] Outpatient Surgery Discharge Instructionon 03-20-2024 Outpatient Surgery Discharge Instruction Outpatient Surgery Discharge Instruction [place] [address] Patient Discharge Instructions PERSON INFORMATION Name: SHEY OBRIEN Date of : 1950 Current Date: 03/20/2024 12:58:56 PHYSICIANS Admitting Physician: Dafne Spears MD Discharge Diagnosis: KARYNALPA GARCIAON has been given the following list of [...] were given Patient Signature Date Clinican/Nurse Signature ___ Date Follow up: Pharmacy Information: You may receive a survey from Elisa Giang asking you to rate your care experience. Your feedback is important and will help us understand what we do well and how we can improve the quality of care we provide to you, your loved ones and our community. It?s an honor to serve you. Thank you for choosing [facility] HERE ARE THE MEDICATION CHANGES [...] (at bedtime). fluticasone nasal (Flonase 0.05 mg/inh Luckey) 2 Sprays Nasal Inhalation every day. losartan [...] sleep. PATIENT EDUCATION INFORMATION Instructions: Medication Leaflets: [facility] Proceduralon 03-20-2024 Procedural Procedural Patient: SHEY OBRIEN Age: 73 years Sex: Female : 1950 Associated Diagnoses: None Author: Daquan Schuler MD Postoperative Information Postoperative disposition: Postoperative disposition: To PACU. Optimetrix number: Optimetrix number [id number]. Anesthetic utilized: General. Health Status Allergies: Allergic [...] meets criteria ( To home ). Kary [facility] Procedural Procedural Patient: SHEY OBRIEN Age: 73 [...] 1 tab, Oral, Daily Flonase 0.05 mg/inh Luckey: 2 spray(s), Nasal, Daily, Refill(s) 0, Dry [...] a day (at bedtime) Flonase 0.05 mg/inh Luckey 2 spray(s), Nasal, Daily losartan 25 mg [...] All Problems BMI 39.0-39.9,adult / SNOMED CT 307016714 / Confirmed Chronic obstructive pulmonary disease / SNOMED CT 47805043 / Confirmed Dyslipidemia / SNOMED CT 4996848341 / Confirmed Dysphagia / SNOMED CT 45312419 / Confirmed GERD (gastroesophageal reflux disease) / SNOMED CT 858317104 / Confirmed Hiatal hernia / SNOMED CT 520063550 / Confirmed HTN (hypertension) / SNOMED CT 4747658294 / Confirmed Insomnia / SNOMED CT 518774537 / Confirmed Lower extremity edema / SNOMED CT 123699892 / Confirmed Morbid obesity / SNOMED CT 044647131 / Confirmed EDWIN (obstructive sleep apnea) / SNOMED CT 253555852 / Confirmed Screening for malignant neoplasm of colon / SNOMED CT 036160520 / Confirmed Seasonal allergic rhinitis / SNOMED CT 874997577 / Confirmed TIA (transient ischemic attack) / SNOMED CT 005104566 / Confirmed Resolved: At risk for falls / SNOMED CT 603382595 Problem added when Risk for Falls Careplan was initiated. Resolved due to patient discharge. Resolved: Hernia / SNOMED CT 077278897 Resolved: Potential for deficient knowledge of cerebrovascular accident (CVA) / IMO 14739562 problem added based on Stroke Powerplan ordered. Resolved due to patient discharge. Resolved: Sleep apnea / SNOMED CT 172411755, Active Problems (14) BMI 39.0-39.9,adult Chronic obstructive pulmonary disease Dyslipidemia Dysphagia GERD (gastroesophageal reflux disease) Hiatal hernia HTN (hypertension) Insomnia Lower extremity edema Morbid obesity EDWIN (obstructive sleep apnea) Screening for malignant neoplasm of colon Seasonal allergic rhinitis TIA (transient ischemic (more content not included)... Normal [facility] ALL FOLIC ACIDon 03-07-2024 FOLATE 23.60 ng/mL 8.60 - 58.90 ng/mL [facility] ALL THYROID STIM HORMONEon 0 03-07-2024 TSH Qn 2.782 m[IU]/L [facility] No Panel Informationon 03-07 [facility] Ambulatory Visit Summaryon 02-26-2024 Ambulatory Visit Summary Ambulatory Visit Summary SHEY OBRIEN :1950 Visit Date:02/26/2024 Ambulatory Visit Instructions Your Diagnosis Dysphagia Hiatal hernia GERD (gastroesophageal reflux disease) Your Care Team Attending Physician - Dafne Spears MD Primary Care Physician - LATRELL JACK [...] mg Tab) fluticasone nasal (Flonase 0.05 mg/inh Luckey) losartan (losartan 25 mg Tab) multivitamin with [...] Unchanged fluticasone nasal (Flonase 0.05 mg/ inh Luckey) 2 Sprays Nasal Inhalation Every day Contact [...] for choosing us for your care. Normal [facility] Gastroenterology Office/Clin ic Noteon 02-26-2024 Gastroenterology [...] or gangrene) reports she had esophagram in [place] no egd in the past declined surgery [...] a day (at bedtime) Flonase 0.05 mg/inh Luckey, 2 spray(s), Nasal, Daily losartan 25 mg [...] virus vaccine, inactivated 05/03/2022 Recorded SARS-CoV-2 (COVID-19) [id number] 05/03/2022 Recorded influenza virus vaccine, inactivated 04/12/2021 [...] influenza virus vaccine, inactivated 04/16/2015 Recorded Normal [facility] Comment on above: Result Comment: Elec tronically Signed By: Yovanny OLIVO, Dafne Torres\.br\Date and Time Signed: 02/26/24 09:38 EDT IntraOperative Documentson 0 10-19-2023 IntraOperative Documents [id number] .00TIFF Normal [facility] Consenton 10-16-2023 Consent [id number]#1. 00TIFF Normal [facility] Discharge Instructionson Discharge Instructions [id number]#1. 00TIFF Normal [facility] Main OR Intraoperative Recor don 10-16-2023 Main OR Intraoperative Record IntraOp Document Type FT Summary Primary Physician: Pa WEBB MD Finalized Date/Time: 10/16/23 09:46:21 Pt. Name: SHEY OBRIEN/Sex: 1950 Female Med Rec #: [id number] Physician: Pa WEBB MD Financial #: [id number] Pt. Type: O Room/Bed: / Admit/Disch: 10/13/23 [...] 1 Entry 2 Entry 3 Case Attendee [facility], Valentin WEBB MD, Kimberly Mcclellan RN Role Performed Anesthesiologist Surgeon - Primary Housefellow - Primary Technical Publications Manager Time In 10/13/23 08:55:00 10/13/23 08:55:00 10/13/23 [...] and tissue Entry 1 Skin Integrity Intact, Solon, Warm, and Skin Abnormality No Dry Outcomes [...] Large Press Points Checked Yes By Kimberly Infanet RN Outcomes Met? Yes Last Modified By: Remigio Infante RN (more content not included)... Normal [facility] Postoperative Documentson Postoperative Documents [id number]. 00TIFF Normal [facility] Reminderson 10-16-2023 Reminders - From: Nhi Aguirre LPN To: GSN - Clinical; Sent: 10/16/2023 10:15:48 EDT Show up: 09/11/2033 07:00:00 EST Subject: colonoscopy recall Due Date/Time: 10/12/2033 07:00:00 EDT Reminder/Recall Patient due for screening colonoscopy 10/12/2033. Normal [facility] Colonoscopy Procedure Report on 10-13-2023 Colonoscopy [...] extent examined. Images Procedure images: anal canal Rec1_hd_video_2023__ [id number].jpg ileocecalvalve Rec1_hd_video_2023__ [id number].jpg appendiceal orificie . Post-Procedure Complications: none. Estimated blood loss: none. Specimens: none. Devices/ implants: none left in place. Impression and Plan Diagnosis: Encounter for screening for malignant neoplasm of rectum (SHJ27-SA Z12.12, Discharge, Medical). Course: Progressing as expected. Recommendations: Repeat colonoscopy:: In 10 years. Follow-up:: if problems/questions. Diet:: Regular diet. Medication resumption:: Continue current medications. Return to activities:: After 24 hours. Education and Follow-up: Counseled: Family. [facility] Comment on above: Other Comment: Samreen dueñas Attachment - attachment storage system not supported [id number] Can be viewed in source systemMissing Attachment - attachment storage system not supported [id number] Can be viewed in source systemMissing Attachment - attachment storage system not supported [id number] Can be viewed in source systemMissing Attachment - attachment storage system not supported 3873067 Can be viewed in source systemMissing Attachment - attachment storage system not supported 4950133 Can be viewed in source system Consent for Treatmenton 04-0 Consent for Treatment [id number]#1.0 0TIFF [facility] Discharge Instructionson Discharge Instructions SHEY OBRIEN :1950 [...] mg Tab) fluticasone nasal (Flonase 0.05 mg/inh Luckey) losartan (losartan 25 mg Tab) multivitamin with [...] When: Only if needed Where: [facility], [facility] [address] [place] [phone] Business (1) Medications What How Much When [...] Unchanged fluticasone nasal (Flonase 0.05 mg/ inh Luckey) 2 Sprays Nasal Inhalation Every day Unchanged [...] as instru (more content not included)... Normal [facility] Comment on above: Result Comment: Elec tronically Signed By: Mariaelena Vidal RN\.br\Date and Time Signed: 10/13/23 09:33 EDT Inpatient Patient Summaryon 10-13-2023 Inpatient Patient Summary [address] [address] [facility] Clinical Discharge Instructions PERSON INFORMATION Name: SHEY OBRIEN PHYSICIANS Admitting Physician: Pa WEBB MD Attending Physician: Pa WEBB MD PCP: LATRELL JACK MD Discharge Diagnosis: Encounter for colorectal cancer screening; Encounter for screening for malignant neoplasm of rectum Comment: PATIENT EDUCATION INFORMATION Instructions: Medication Leaflets: Follow up: With: Address: When: Pa WEBB [address] [place] [address], [address], [address] [address] Business (1) , only if needed MEDICATION [...] (at bedtime). fluticasone nasal (Flonase 0.05 mg/inh Luckey) 2 Sprays Nasal Inhalation every day. losartan [...] bedtime) as needed for sleep. Comment: Normal [facility] Main OR PACU I Recordon Main OR PACU I Record PACU Phase I Docum ent Type FT Summary Primary Physician: Pa WEBB MD Finalized Date/Time: 10/13/23 09:54:27 Pt. Name: KARYNSHEY/Sex: 1950 Female Med Rec #: [id number] Physician: Pa WEBB MD Financial #: [id number] Pt. Type: O Room/Bed: / Admit/Disch: 10/13/23 [...] By: Mariaelena Vidal RN 10/13/23 09:54 Normal [facility] Main OR Preoperative Recordo n 10-13-2023 Main OR Preoperative Record Holding Area Document Type FT Summary Primary Physician: Pa WEBB MD Finalized Date/Time: 10/13/23 08:06:06 Pt. Name: SHEY OBRIEN Tamie/Sex: 1950 Female Med Rec #: [id number] Physician: Pa WEBB MD Financial #: [id number] Pt. Type: O Room/Bed: / Admit/Disch: 10/13/23 [...] Signed By: Trip Domínguez 10/13/23 08:06 Normal [facility] Monitor Recordon 10-13-2023 Monitor Record [id number]. 00TIFF Normal [facility] Monitor Record [id number]. 00TIFF Normal [facility] Outpatient Surgery Discharge Instructionon 10-13-2023 Outpatient Surgery Discharge Instruction [address] [address] Patient Discharge Instructions PERSON INFORMATION Name: SHEY OBRIEN Date of : 1950 Current Date: 10/13/2023 09:16:35 PHYSICIANS Admitting Physician: TRACEY OLIVO, Pa Vivas Discharge Diagnosis: Encounter for colorectal cancer screening; [...] were given Patient Signature Date Clinican/Nurse Signature ___ Date Follow up: With: Address: When: Pa [address], [address], [place] [phone] [facility] (1) , only if needed Pharmacy Information: [...] to serve you. Thank you for choosing [facility] HERE ARE THE MEDICATION CHANGES [...] (at bedtime). fluticasone nasal (Flonase 0.05 mg/inh Luckey) 2 Sprays Nasal Inhalation every day. losartan [...] sleep. PATIENT EDUCATION INFORMATION Instructions: Medication Leaflets: [facility] Patient Education - Texton 0 10-13-2023 Patient [...] or gets worse throughout the day. Normal [facility] Progress Note-Physicianon Progress Note-Physician Patient: SHEY OBRIEN Age: 73 years Sex: Female : 1950 Associated Diagnoses: None Author: Shaji Bethea Jr., DO Postoperative Information Postoperative disposition: Postoperative disposition: Home. Optimetrix number: Optimetrix number [id number]. Anesthetic utilized: General. Physical Examination Vital Signs [...] Surgery Unit, and To home ). Normal [facility] Comment on above: Result Comment: Elec [...] m2 Documented Medications Documented Flonase 0.05 mg/inh Luckey: 2 spray(s), Nasal, Daily, Refill(s) 0, Dry [...] a day (at bedtime) Flonase 0.05 mg/inh Luckey 2 spray(s), Nasal, Daily losartan 25 mg [...] All Problems BMI 39.0-39.9,adult / SNOMED CT 305718655 / Confirmed Chronic obstructive pulmonary disease / SNOMED CT 01916073 / Confirmed Dyslipidemia / SNOMED CT 2021209578 / Confirmed GERD (gastroesophageal reflux disease) / SNOMED CT 391757834 / Confirmed Hiatal hernia / SNOMED CT 106270473 / Confirmed HTN (hypertension) / SNOMED CT 2180810699 / Confirmed Insomnia / SNOMED CT 158031495 / Confirmed Lower extremity edema / SNOMED CT 473621570 / Confirmed Morbid obesity / SNOMED CT 636121572 / Confirmed EDWIN (obstructive sleep apnea) / SNOMED CT 801803485 / Confirmed Screening for malignant neoplasm of colon / SNOMED CT 109521889 / Confirmed Seasonal allergic rhinitis / SNOMED CT 884569384 / Confirmed TIA (transient ischemic attack) / SNOMED CT 563833553 / Confirmed Resolved: At risk for falls / SNOMED CT 958410681 Problem added when Risk for Falls Careplan was initiated. Resolved due to patient discharge. Resolved: Hernia / SNOMED CT 481664233 Resolved: Potential for deficient knowledge of cerebrovascular accident (CVA) / IMO 87209627 problem added based on Stroke Powerplan ordered. Resolved due to patient discharge. Resolved: Sleep apnea / SNOMED CT 892131056 Histories Past Medical History: Resolved Hernia (772365306): Resolved. Sleep apnea (286684743): Resolved. Procedure history: ORIF - Open reduction of fracture of ankle with internal fixation ([id number]). Meniscal repair (726713295). Tonsillectomy (886995361). Hand tendon repaired (327858274). Social History Social & Psychosocial Habits Alcohol 09/12/2023 Frequency: 1-2 times per year Substance Abuse Comment: denies - 03/03/2021 07:19 - Carolyn Stewart RN 09/12/2023 Risk Assessment: Denies Substance Abuse Tobacco 09/12/2023 Tobacco Use: Former smoker, quit more Smokeless tobacco use: Never Type: Cigarettes . Physical Examination Vital Signs 10/13/2023 8:03 EDT Temperature Temporal Artery 36.3 DegC (more content not included)... Normal [facility] Comment on above: Result Comment: Elec tronically Signed By: Shaji Bethea Jr., DO\.maikol\Date and Time Signed: 10/13/23 08:04 EDT Consent for Procedure/Surger yon 09-13-2023 Consent for Procedure/Surgery [id number] TIFF Normal [facility] Ambulatory Visit Summaryon 0 09-12-2023 Ambulatory [...] mg Tab) fluticasone nasal (Flonase 0.05 mg/inh Luckey) losartan (losartan 25 mg Tab) multivitamin with [...] Unchanged fluticasone nasal (Flonase 0.05 mg/ inh Luckey) 2 Sprays Nasal Inhalation Every day Contact [...] for choosing us for your care. Normal [facility] Provider Letteron 08-25-2023 Provider Letter August 25, 2023 SHEY OBRIEN [address] [place] [id number] : 1950 Dear Ms. Obrien, We have been trying to reach you with no success regarding a referral from Dr Jack. It is important that you return our call upon receiving this letter so that we can set up an appointment for you in either our [place] or [place] office. Also, at the time of your call, please provide us with your current demographic and insurance information. Thank you for your prompt attention to this matter. Sincerely, [facility] General Surgery [phone] Normal [facility] Physician Referralon 024 Physician Referral [id number] 0TIFF Normal [facility] CT LUNG CANCER SCREENINGon 0 07-28-2022 [...] MEHNAZ SANTIAGO Date: 2022-07-28 15:28 Normal [facility] BNPon 02-22-2022 Natriuretic peptide B (Bld) [Mass/Vol] 108.0 pg/mL Normal <=900.0 [facility] Comment on above: Performed By: #### B MP, BNP, HSTROPN ####[facility] [address] [place] [address]Dr. Felisa Trujillo CBC AUTO DIFFon 02-22-2022 BASO # 0.0 103/ul Normal 0.0-0.1 [facility] Comment on above: Performed By: #### C BC ####[facility] [address] [place], [place] [address]Dr. Felisa Trujillo Basophils/100 WBC (Bld) 0.7 % Normal 0.2-2.0 [facility] Comment on above: Performed By: #### C BC ####[facility] [address] [place], [place] [address]Dr. Krystakun Ronnie EO # 0.1 103/ul Normal 0.0-0.7 [facility] Comment on above: Performed By: #### C BC ####[facility] [address] [place], [place] [address]Dr. Felisa Ronnie Eosinophils/100 WBC (Bld) 1.4 % Normal 0.9-7.0 [facility] Comment on above: Performed By: #### C BC ####[facility] [address] [place], [place] [address]Dr. Felisa Trujillo Erythrocyte distribution width (RBC) [Ratio] 13.2 % Normal 11.0-15.0 [facility] Comment on above: Performed By: #### C BC ####[facility] [address] [place], [place] [address]Dr. Felisa Trujillo Hematocrit (Bld) [Volume fraction] 36.6 % Normal 36.0-48.0 [facility] Comment on above: Performed By: #### C BC ####[facility] [address] [place], [place] [address]Dr. Felisa Trujillo Hemoglobin (Bld) [Mass/Vol] 12.7 g/dL Normal 12.0-16.0 [facility] Comment on above: Performed By: #### C BC ####[facility] [address] [place], [place] [address]Dr. Felisa Trujillo IG # 0.01 10e3/ul Normal 0.00-0.03 [facility] Comment on above: Performed By: #### C BC ####[facility] [address] [place] [id number]. Felisa Trujillo IG % 0.2 % Normal 0.0-0.5 [facility] Comment on above: Performed By: #### C BC ####[facility] [address] [place] [address]DrMichelle Trujillo LYMPH # 1.0 103/ul Critically low 1.2-3.8 [facility] Comment on above: Performed By: #### C BC ####[facility] [address] [place], [place] [address]DrMichelle Trujillo Lymphocytes/100 WBC (Bld) 22.3 % Normal 20.5-60.0 [facility] Comment on above: Performed By: #### C BC ####[facility] [address] [place], [place] [address]DrMichelle Trujillo MANUAL DIFF REQ NO Normal [facility] Comment on above: Performed By: #### C BC ####[facility] [address] [place] [address]Dr. Krystakun Trujillo MCH (RBC) [Entitic mass] 31.8 pg Normal 26.7-34.0 [facility] Comment on above: Performed By: #### C BC ####[facility] [address] [place], [place] [address]Dr. Felisa Ronnie MCHC (RBC) [Mass/Vol] 34.7 g/dL Normal 29.9-35.2 [facility] System Comment on above: Performed By: #### C BC ####[facility] [address] [place], [place] [address]DrMichelle Trujillo MCV (RBC) [Entitic vol] 91.7 fL Normal 81.0-99.0 [facility] Comment on above: Performed By: #### C BC ####[facility] Bl[address]ap[address] [place], [place] [address]DrMichelle Trujillo MONO # 0.5 103/ul Normal 0.3-0.8 [facility] Comment on above: Performed By: #### C BC ####[facility] [address] [place], [place] [id number]. Felisa Trujillo Monocytes/100 WBC (Bld) 11.7 % Normal 1.7-12.0 [facility] Comment on above: Performed By: #### C BC ####[facility] [address] [place] [address] [address]Dr. Felisa Trujillo NEUT # 2.7 103/ul Normal 1.4-6.5 [facility] Comment on above: Performed By: #### C BC ####[facility] [address] [address]Dr. Felisa Trujillo Neutrophils/100 WBC (Bld) 63.7 % Normal 43.0-75.0 [facility] Comment on above: Performed By: #### C BC ####[facility] [address] [place] [address]Dr. Felisa Trujillo Platelet mean volume (Bld) [Entitic vol] 10.2 fL Normal 9.5-13.5 [facility] Comment on above: Performed By: #### C BC ####[facility] [address] [place] [address]Dr. Felisa Trujillo PLT 149 103/ul Critically low 150-450 [facility] Comment on above: Performed By: #### C BC ####[facility] [address] [address]Dr. Felisa Trujillo RBC 3.99 106/ul Critically low 4.20-5.40 [facility] Comment on above: Performed By: #### C BC ####[facility] [address] [address]Dr. Felisa Trujillo WBC 4.3 103/ul Normal 4.0-11.0 [facility] Comment on above: Performed By: #### C BC ####[facility] U[address] [place], [place] [address]Dr. Felisa Trujillo Covid-19 PCR ([facility])on 02-07 SARS-CoV-2 (COVID-19) RNA DUGLAS+probe Ql (Unsp spec) Detected Critically abnormal NOT DETECTED [facility] Comment on above: Result Comment: This test is not yet approved or cleared by the [place] FDA. When there are no FDA-approved or cleared tests available, and other criteria are met, FDA can make tests available under an emergency access mechanism called an Emergency Use Authorization (EUA). The EUA for this test is supported by the [employer] of Health and Human Service's declaration that [...] be used). Performed By: #### C VDTBH ####[facility] [address] [place], [place] [address]Dr. Felisa Trujillo PROF CHEM 8 (BAS METB)on Anion gap [Moles/Vol] 14.9 mmol/L Normal [facility] Comment on above: Performed By: #### B MP, BNP, HSTROPN ####[facility] [address] [place], [place] [address]Dr. Felisa Trujillo Calcium [Mass/Vol] 8.9 mg/dL Normal 8.5-10.1 [facility] Comment on above: Performed By: #### B MP, BNP, HSTROPN ####[facility] Ssepcf[address] [place], [place] [address]Dr. Felisa Trujillo Chloride [Moles/Vol] 104 mmol/L Normal 98-107 [facility] Comment on above: Performed By: #### B MP, BNP, HSTROPN ####[facility] [address]vwcllrey[address] [place], [place] [address]Dr. Felisa Trujillo CO2 [Moles/Vol] 24.0 mmol/L Normal 21.0-32.0 [facility] Comment on above: Performed By: #### B MP, BNP, HSTROPN ####[facility] Zeebogcs[address] [place], [place] [address]Dr. Felisa Trujillo Creatinine [Mass/Vol] 0.98 mg/dL Normal 0.55-1.02 [facility] Comment on above: Performed By: #### B MP, BNP, HSTROPN ####[facility] [address] [address]Dr. Felisa Trujillo EGFR-AF MALAWIAN >60 Normal >=60 [facility] Comment on above: Performed By: #### B MP, BNP, HSTROPN ####[facility] [address] [place] [address]Dr. Felisa Trujillo EGFR-NON AF MALAWIAN 56 mL/min/1.73m2 Critically low >=60 [facility] Comment on above: Performed By: #### B MP, BNP, HSTROPN ####[facility] Ajdtbotlut[address] [place], [place] [address]Dr. Felisa Trujillo Glucose [Mass/Vol] 136 mg/dL Critically high 74-106 [facility] Comment on above: Performed By: #### B MP, BNP, HSTROPN ####[facility] [address]up[address] [place], [place] [address]Dr. Felisa Trujillo Potassium [Moles/Vol] 3.9 mmol/L Normal 3.5-5.1 [facility] Comment on above: Performed By: #### B MP, BNP, HSTROPN ####[facility] [address] [place], [place] [address]Dr. Felisa Trujillo Sodium [Moles/Vol] 139 mmol/L Normal 136-145 [facility] Comment on above: Performed By: #### B MP, BNP, HSTROPN ####[facility] [address]pos[address] [place], [place] [address]Dr. Felisa Trujillo Urea nitrogen [Mass/Vol] 14.0 mg/dL Normal 7.0-18.0 [facility] Comment on above: Performed By: #### B MP, BNP, HSTROPN ####[facility] [address] [place], [place] [address]Dr. Felisa Trujillo Urea nitrogen/Creatinine [Mass ratio] 14.3 mg/mg Normal [facility] Comment on above: Performed By: #### B MP, BNP, HSTROPN ####[facility] [address] [place], [place] [address]Qw. Felisa Trujillo TROPONIN, HIGH SENSITIVITYon 02-22-2022 HSTROP 5.9 pg/mL Normal 4.0-51.3 [facility] Comment on above: Result Comment: CUT- OFF POINTS HAVE BEEN ESTABLISHED BASED ON THE FOURTH UNIVERSAL DEFINITIONS OF MYOCARDIAL INFARCTION. THE UPPER REFERENCE LIMIT (URL) OF TROPONIN, DEFINED THE 99TH PERCENTILE OF cTnI DISTRIBUTION IN A REFERENCE POPULATION, HAS BEEN CONFIRMED THE DECISION THRESHOLD FOR AL DIAGNOSIS. Performed By: #### B MP, BNP, HSTROPN ####[facility] [address] [place], [place] [address]Wt. Felisa Trujillo XR CHEST 1 Von 02-22-2022 [...] MEHNAZ SANTIAGO Date: 2022-02-22 13:30 Normal [facility] MG MAMM SCREEN 3D RONALD CADon 11-11-2021 MG MAMM SCREEN 3D RONALD CAD Patient: SHEY OBRIEN Exam Date: 11/11/2021 : 1950 Gender:F Ordering : DR LATRELL JACK . Admission #: [id number] Family : Order #: [id number] CLICK HERE TO VIEW EXAM RADIOLOGY REPORT [...] lung cancer at age 46. LOCATION: [facility] BREAST COMPOSITION: Almost entirely fatty. [...] MD on 11/11/2021 at 13:04 Normal [facility] BNPon 11-02-2021 Natriuretic peptide B (Bld) [Mass/Vol] 42.0 pg/mL Normal <=900.0 [facility] Comment on above: Performed By: #### H STROPN, CMP, BNP #### [facility] [address] [place] [address] Dr. Felisa Trujillo CBC AUTO DIFFon 11-02-2021 BASO # 0.1 103/ul Normal 0.0-0.1 [facility] Comment on above: Performed By: #### C BC #### [facility] [address] [place] [address] Dr. Felisa Trujillo Basophils/100 WBC (Bld) 0.8 % Normal 0.2-2.0 [facility] Comment on above: Performed By: #### C BC #### [facility] [address] [place] [address] Dr. Felisa Trujillo EO # 0.3 103/ul Normal 0.0-0.7 [facility] Comment on above: Performed By: #### C BC #### [facility] [address] [place] [address] Dr. Felisa Trujillo Eosinophils/100 WBC (Bld) 3.9 % Normal 0.9-7.0 [facility] Comment on above: Performed By: #### C BC #### [facility] [address] [place] [address] Dr. Felisa Trujillo Erythrocyte distribution width (RBC) [Ratio] 12.7 % Normal 11.0-15.0 [facility] Comment on above: Performed By: #### C BC #### [facility] [address] [place] [address] Dr. Felisa Trujillo Hematocrit (Bld) [Volume fraction] 40.2 % Normal 36.0-48.0 [facility] Comment on above: Performed By: #### C BC #### [facility] [address] [place] [address] Dr. Felisa Trujillo Hemoglobin (Bld) [Mass/Vol] 13.6 g/dL Normal 12.0-16.0 [facility] Comment on above: Performed By: #### C BC #### [facility] [address] [place] [address] Dr. Felisa Trujillo IG # 0.02 10e3/ul Normal 0.00-0.03 [facility] Comment on above: Performed By: #### C BC #### [facility] [address] [place] [address] Dr. Felisa Trujillo IG % 0.3 % Normal 0.0-0.5 [facility] Comment on above: Performed By: #### C BC #### [facility] [address] [place] [address] Dr. Felisa Trujillo LYMPH # 1.9 103/ul Normal 1.2-3.8 [facility] Comment on above: Performed By: #### C BC #### [facility] [address] [place] [address] Dr. Felisa Trujillo Lymphocytes/100 WBC (Bld) 30.0 % Normal 20.5-60.0 [facility] Comment on above: Performed By: #### C BC #### [facility] [address] [place] [address] Dr. Felisa Trujillo MANUAL DIFF REQ NO Normal [facility] Comment on above: Performed By: #### C BC #### [facility] [address] [place] [address] Dr. Felisa Trujillo MCH (RBC) [Entitic mass] 31.5 pg Normal 26.7-34.0 [facility] Comment on above: Performed By: #### C BC #### [facility] [address] [place] [address] Dr. Felisa Trujillo MCHC (RBC) [Mass/Vol] 33.8 g/dL Normal 29.9-35.2 [facility] Comment on above: Performed By: #### C BC #### [facility] [address] [place] [address] Dr. Felisa Trujillo MCV (RBC) [Entitic vol] 93.1 fL Normal 81.0-99.0 [facility] Comment on above: Performed By: #### C BC #### [facility] [address] [address] [address] Felisa Trujillo MONO # 0.6 103/ul Normal 0.3-0.8 [facility] Comment on above: Performed By: #### C BC #### [facility] [address] [place] [address] Dr. Felisa Trujillo Monocytes/100 WBC (Bld) 8.5 % Normal 1.7-12.0 [facility] Comment on above: Performed By: #### C BC #### [facility] [address] [place] [address] Dr. Felisa Trujillo NEUT # 3.7 103/ul Normal 1.4-6.5 [facility] Comment on above: Performed By: #### C BC #### [facility] [address] [place] [address] Dr. Felisa Trujillo Neutrophils/100 WBC (Bld) 56.5 % Normal 43.0-75.0 [facility] Comment on above: Performed By: #### C BC #### [facility] [address] [place] [address] Dr. Felisa Trujillo Platelet mean volume (Bld) [Entitic vol] 9.9 fL Normal 9.5-13.5 [facility] Comment on above: Performed By: #### C BC #### [facility] [address] [place] [address] Dr. Felisa Trujillo PLT 193 103/ul Normal 150-450 [facility] Comment on above: Performed By: #### C BC #### [facility] [address] [place] [address] Dr. Felisa Trujillo RBC 4.32 106/ul Normal 4.20-5.40 [facility] Comment on above: Performed By: #### C BC #### [facility] [address] [address] [address] Felisa Trujillo WBC 6.5 103/ul Normal 4.0-11.0 [facility] Comment on above: Performed By: #### C BC #### [facility] [address] [address] [address] Felisa Trujillo Covid-19 PCR (CVDTB)on 10-09 SARS-CoV-2 (COVID-19) RNA DUGLAS+probe Ql (Unsp spec) Not detected Normal NOT DETECTED [facility] Comment on above: Result Comment: [...] for this test is supported by the [place] of Health and Human Service's declaration that [...] used). Performed By: #### C VDTBH #### [facility] [address] [address] [address] Felisa Trujillo LACTATE/LACTIC ACIDon 2021 Lactate [Moles/Vol] 1.0 mmol/L Normal 0.4-2.0 [facility] Comment on above: Performed By: #### L ACT ####[facility] [address] [place], [place] [address]Dr. Felisa Trujillo PH VENOUS BLOODon 11-02-2021 PCO2 VENOUS 40.3 mmHg Normal 40.0-52.0 [facility] Comment on above: Performed By: #### P HVEN ####[facility] [address] [place] [address]Dr. Felisa Trujillo pH VENOUS 7.431 Critically high 7.330-7.430 [facility] Comment on above: Performed By: #### P HVEN ####[facility] [address] [place] [address]Dr. Felisa Trujillo PROF 14(COMP METB)on 022 Albumin [Mass/Vol] 4.1 g/dL Normal 3.4-5.0 [facility] Comment on above: Performed By: #### H STROPN, CMP, BNP ####[facility] [address] [place] [address]Dr. Felisa Trujillo Albumin/Globulin [Mass ratio] 1.1 {ratio} Normal [facility] Comment on above: Performed By: #### H STROPN, CMP, BNP ####[facility] [address] [place] [address]Dr. Felisa Trujillo ALP [Catalytic activity/Vol] 120 U/L Critically high 46-116 [facility] Comment on above: Performed By: #### H STROPN, CMP, BNP ####[facility] [address] [place], [place] [address]Dr. Felisa Trujillo ALT [Catalytic activity/Vol] 29 U/L Normal 14-59 [facility] Comment on above: Performed By: #### H STROPN, CMP, BNP ####[facility] [address] [place] [address]Dr. Felisa Trujillo Anion gap [Moles/Vol] 14.2 mmol/L Normal [facility] Comment on above: Performed By: #### H STROPN, CMP, BNP ####[facility] [address] [place] [address]Dr. Felisa Trujillo AST [Catalytic activity/Vol] 24 U/L Normal 15-37 [facility] Comment on above: Performed By: #### H STROPN, CMP, BNP ####[facility] [address] [place] [address]Dr. Felisa Trujillo Bilirubin [Mass/Vol] 0.6 mg/dL Normal 0.2-1.0 [facility] Comment on above: Performed By: #### H STROPN, CMP, BNP ####[facility] [address] [place] [address]Dr. Felisa Trujillo Calcium [Mass/Vol] 8.8 mg/dL Normal 8.5-10.1 [facility] Comment on above: Performed By: #### H STROPN, CMP, BNP ####[facility] [address] [place] [address]Dr. Felisa Trujillo Chloride [Moles/Vol] 103 mmol/L Normal 98-107 [facility] Comment on above: Performed By: #### H STROPN, CMP, BNP ####[facility] [address] [place], [place] [address]Dr. Felisa Trujillo CO2 [Moles/Vol] 25.3 mmol/L Normal 21.0-32.0 [facility] Comment on above: Performed By: #### H STROPN, CMP, BNP ####[facility] [address] [place], [place] [address]Dr. Felisa Trujillo Creatinine [Mass/Vol] 0.86 mg/dL Normal 0.55-1.02 [facility] Comment on above: Performed By: #### H STROPN, CMP, BNP ####[facility] [address] [place] [address]Dr. Felisa Trujillo EGFR-AF MALAWIAN >60 Normal >=60 [facility] Comment on above: Performed By: #### H STROPN, CMP, BNP ####[facility] [address] [place] [address]Dr. Felisa Trujillo EGFR-NON AF MALAWIAN >60 Normal >=60 [facility] Comment on above: Performed By: #### H STROPN, CMP, BNP ####[facility] [address] [place] [address]Dr. Felisa Trujillo Globulin (S) [Mass/Vol] 3.6 g/dL Normal [facility] Comment on above: Performed By: #### H STROPN, CMP, BNP ####[facility] [address] [place] [address]Dr. Felisa Trujillo Glucose [Mass/Vol] 90 mg/dL Normal 74-106 The [facility] Comment on above: Performed By: #### H STROPN, CMP, BNP ####[facility] [address] [place] [address]Dr. Felisa Trujillo Potassium [Moles/Vol] 3.5 mmol/L Normal 3.5-5.1 [facility] Comment on above: Performed By: #### H STROPN, CMP, BNP ####[facility] [address] [place] [address]Dr. Felisa Trujillo Protein [Mass/Vol] 7.7 g/dL Normal 6.1-8.2 [facility] Comment on above: Performed By: #### H STROPN, CMP, BNP ####[facility] [address] [place] [address]Dr. Felisa Trujillo Sodium [Moles/Vol] 139 mmol/L Normal 136-145 [facility] Comment on above: Performed By: #### H STROPN, CMP, BNP ####[facility] [address] [place] [address]Dr. Felisa Trujillo Urea nitrogen [Mass/Vol] 13.0 mg/dL Normal 7.0-18.0 [facility] Comment on above: Performed By: #### H STROPN, CMP, BNP ####[facility] [address] [place] [address]Dr. Felisa Trujillo Urea nitrogen/Creatinine [Mass ratio] 15.1 mg/mg Normal [facility] Comment on above: Performed By: #### H STROPN, CMP, BNP ####[facility] [address] [place] [address]DrMichelle Trujillo PROTIMEon 11-02-2021 INR Coag (PPP) [Relative time] 0.99 {INR} Normal [facility] Comment on above: Performed By: #### P TT, PT #### [facility] [address] [address] [address] Felisa Trujillo INR GUIDELINES SEE BELOW Normal [facility] Comment on above: Result Comment: KAY RED INR: 2.0 - 3.0 CONDITIONS NOT LISTED BELOW 2.5 - 3.5 FOR PROSTHETIC HEART VALVE REPLACEMENT 2.5 - 3.5 RECURRENT THROMBOSIS Performed By: #### P TT, PT #### [facility] [address] [place] [address] Dr. Felisa Trujillo PT Coag (PPP) [Time] 10.7 s Normal 9.0-11.6 [facility] Comment on above: Performed By: #### P TT, PT #### [facility] [address] [address] [address] Felisa Trujillo PTTon 11-02-2021 aPTT Coag (Bld) [Time] 25.9 s Normal 22.3-36.2 [facility] Comment on above: Performed By: #### P TT, PT #### [facility] [address] [place] [address] Dr. Felisa Trujillo TROPONIN, HIGH SENSITIVITYon 11-02-2021 HSTROP 8.7 pg/mL Normal 4.0-51.3 [facility] Comment on above: Result Comment: CUT- OFF POINTS HAVE BEEN ESTABLISHED BASED ON THE FOURTH UNIVERSAL DEFINITIONS OF MYOCARDIAL INFARCTION. THE UPPER REFERENCE LIMIT (URL) OF TROPONIN, DEFINED THE 99TH PERCENTILE OF cTnI DISTRIBUTION IN A REFERENCE POPULATION, HAS BEEN CONFIRMED THE DECISION THRESHOLD FOR AL DIAGNOSIS. Performed By: #### H STROPN, CMP, BNP #### [facility] [address] [place] [address] Dr. Felisa Trujillo Covid-19 PCR (CVDTBH)on SARS-CoV-2 (COVID-19) RNA DUGLSA+probe Ql (Unsp spec) Not detected Normal NOT DETECTED [facility] Comment on above: Result Comment: This test is not yet approved or cleared by the [place] FDA. When there are no FDA-approved or cleared tests available, and other criteria are met, FDA can make tests available under an emergency access mechanism called an Emergency Use Authorization (EUA). The EUA for this test is supported by the [employer] of Health and Human Service's (HHS's) declaration [...] consistent with SARS-CoV-2. Performed By: #### [facility] #### [facility] [address] [place], [place] [address] Dr. Felisa Trujillo XR CHEST 2 Von [...] SANTIAGO Date: 2021-09-02 14:39 Normal [facility] Lab - AP Resultson 9 Lab - AP Results [id number]#1.00 OTGTIFF Normal [facility] Pathology Sendout Teston Pathology Send Out. See Report Normal [facility] Comment on above: Order Comment: left ring finger , cyst tendon sheath Performed By: #### 2 [id number] ####[facility] (DEFAULT)[address] [place] [address] Coding Summaryon 02-08-2019 Coding Summary CODING DATE: 02/08/2019 FINAL [facility] STATUS: Home PAYOR: Medicare MC APC DESCRIPTION 5112 Level 2 Musculoskeletal Procedures ADMIT DX: REASON FOR VISIT DX: M65.342 Trigger finger, left ring finger FINAL DX: PRINCIPAL: M65.342 Trigger finger, left ring finger SECONDARY: M67.442 Ganglion, left hand J44.9 Chronic obstructive pulmonary disease, unspecified PYMT PROC APC STAT DESCRIPTION DOCTOR NAME DATE 54141 5111 J1 Excision of lesion of Daquan Antunez [...] Date Saved: 02/08/2019 11:52 am [facility] Consent Formson 02-05-2019 Consent Forms [id number]#1.00 [facility] Discharge Instructionson Discharge Instructions [id number]#1.00 [facility] History and Physicalon 02-05 History and Physical [id number]#1.00 [facility] MAGR Intraoperative Recordon 02-05-2019 MAGR Intraoperative Record MAGR Intra-Op Record Summary Primary Physician: Daquan Antunez DO Finalized Date/Time: 02/05/19 07:41:01 Pt. Name: SHEY OBRIEN/Sex: 1950 FEMALE Med Rec #: [id number] Physician: Daquan Antunez DO Financial #: [id number] Pt. Type: D Room/Bed: / Admit/Disch: 02/04/19 [...] Role Performed Surgeon - Primary Anesthesiologist of [place] Record Time In 02/04/19 15:31:00 02/04/19 15:31:00 02/04/19 15:31:00 Time Out 02/04/19 16:08:00 02/04/19 16:08:00 02/04/19 16:08:00 Procedure Trigger Finger Release Trigger Finger Release Trigger Finger Release Last Modified By: Toshia Plascencia RN, Barbara RN Long, Barbara RN 02/04/19 16:16:05 02/04/19 16:16:05 02/04/19 16:16:05 Entry 4 Entry 5 Case Attendee Paloma Esparza Regina CST Role Performed Scrub Personnel Fashion Photographer Time In 02/04/19 15:31:00 02/04/19 15:31:00 Time [...] Modify Pick List 02/05/19 07:40 MHBLONG Modify [facility] List [facility] Medication Managementon 01-09 Medication Management [id number]#1.00 [facility] Provider Orderson 02-05-2019 Provider Orders [id number]#1.00 [facility] Anesthesia Noteon 02-04-2019 Anesthesia Note Patient: SHEY [...] Problems Chronic back pain / SNOMED CT 971221331 / Confirmed Former smoker / SNOMED CT 62386073 / Confirmed GERD (gastroesophageal reflux disease) / SNOMED CT 016907309 / Confirmed Scar tissue / SNOMED CT 870138831 / Confirmed Sleep apnea / SNOMED CT 979867076 / Confirmed Histories Family History: No family history items have been selected or recorded. Procedure history: Tonsillectomy (238040014). Epidural injection of lumbar spine using fluoroscopic guidance ([id number]). Social History Alcohol Assessment Use: Current. Beer, [...] Management Laboratory Results Plan [place] [employer]#(ASA ) physical status classification: Class III. Anesthetic Preoperative [...] 15:44 EDT] Alirio Mcclellan MD [facility] Inpatient Patient Summaryon 02-04-2019 [place] [address] Patient Discharge Instructions Name: SHEY OBRIEN : 52 Patient Address: [address] [place] [address] Primary Care Provider: Name: LATRELL JACK After you are discharged if you find you have any questions, please, call [phone] ext [phone] to speak to a nurse. Discharge Diagnosis: Trigger finger Prescription Information: If you have been given a prescription for narcotics, seek immediate medical attention if you have any difficulty breathing or any sudden status changes such as confusion and sleepiness. If you or anyone you know is experiencing suicidal thoughts, mental health, alcohol and/or drug addiction problems; contact the [facility] [facility] 30/01 Crisis Hotline -Text 4HOPE to [phone]. If you received any narcotics, sedation, or [...] business decisions or sign any legal documents [facility] would like to thank you for allowing us to assist you with your healthcare needs. The following includes patient education materials and information regarding your injury/illness. SHEY OBRIEN has been given the following list of follow-up instructions, prescriptions, and patient education materials: Follow-up Instructions With: Address: When: Daquan Antunez [address] [facility], [address] [place] [address] Business (2) 02/12/2019 2:00 PM With: Address: When: LATRELL JACK [address] [place] [address] Abdiel [place], [place] [id number] [facility] (1) Medications During the course of your [...] oral capsule) 1 cap(s) Oral every day. fexofenadine-pseudoeph edrine (Simi-D 24 Hour Allergy & Congestion 180 [...] oral capsule) 1 cap(s) Oral every day. fexofenadine-pseudoeph edrine (Simi-D 24 Hour Allergy & Congestion 180 [...] -DO NOT lift heavy objects or head porter forcefully with the affected hand -DO NOT [...] or concerns, please call the office at [phone] or go to the emergency room -Follow [...] March 2014 [facility] MAGR Postoperative Recordon 02-04-2019 MAGR Postoperative Record MAGR Phase II Record Summary Primary Physician: Daquan Antunez DO Finalized Date/Time: 02/04/19 17:11:50 Pt. Name: SHEY OBRIEN/Sex: 1950 FEMALE Med Rec #: [id number] Physician: Daquan Antunez DO Financial #: [id number] Pt. Type: D Room/Bed: / Admit/Disch: 02/04/19 [...] Signed By: Jamil Garibay RN 02/04/19 [facility]11 [facility]2019 [facility] MAGR Pre-Op Record Summary Primary Physician: Daquan Antunez DO Finalized Date/Time: 02/04/19 15:37:19 Pt. Name: SHEY OBRIEN NORMAN /Sex: 1950 FEMALE Med Rec #: [id number] Physician: Daquan Antunez DO Financial #: [id number] Pt. Type: D Room/Bed: / Admit/Disch: 02/04/19 [...] By: Toshia Plascencia RN 02/04/19 15:37 Normal [facility] Operative Report - Surgeon/P shalini 02-04-2019 Operative Report - Surgeon/Physician Procedure: Release of trigger finger left ring finger Excision of cyst left ring finger Pre Op Diagnosis: Trigger finger left ring finger Cyst left ring finger Post Op Dianosis: Same Surgeon: Dr. Renato Antunez, Anesthesia: Conscious sedation with local Indication for [...] cc of 1% lidocaine injected locally by al )transverse incision was made over the A1 [...] 16:37 EDT] Daquan Antunez DO [facility] Patient Handouton 02-04-[address] OHARA POST OPERATIVE INSTRUCTIONS FOR FINGER SURGERY/MALLET FINGER REPAIR SURGEONS WRITTEN INSTRUTCTIONS:' -Keep your hand elevated above your elbow for the first 24 hours after surgery and apply an ice bag at intervals for the first 24 hours -Wiggle the unaffected fingers frequently while awake -DO NOT lift heavy objects or head porter forcefully with the affected hand -DO NOT [...] or concerns, please call the office at [phone] or go to the emergency room -Follow up as scheduled [facility] Progress Note - Nurseon 01-08 Progress Note - Nurse Spoke with pt regarding arrival time of 1145 and NPO status. Verbalized understanding. 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 Verbalized understanding. [Electronically Signed on: 02/01/2019 14:53 EDT] Kika Akers RN [Verified on: 02/01/2019 14:53 EDT] Kika Akers RN [facility] Coding Summaryon 01-29-2019 Coding Summary CODING DATE: 01/29/2019 [facility] STATUS: Home PAYOR: [...] Cueto Date Saved: 01/29/2019 01:42 pm Normal [facility] .Auto Diff 101-28-2019 Auto [place] % 8 % Normal 1-12 [facility] Comment on above: Performed By: #### 7 [id number] #### [facility] (DEFAULT) [address] [place] [address]8977 Baso Abs# 0.0 x10 Normal 0.0-0.2 [facility] Comment on above: Performed By: #### 7 [id number], [id number] #### [facility] (DEFAULT) [address] [place] [address] 05251 Basophils/100 WBC (Bld) 0.4 % Normal 0.2-2.0 [facility] Comment on above: Performed By: #### 7 [id number], [id number] #### [facility] (DEFAULT) [address] [place] [address] 34653 Eos Abs# 0.2 x10 Normal 0.0-0.4 [facility] Comment on above: Performed By: #### 7 [id number], [id number] #### [facility] (DEFAULT) [address] [place] [address] 87740 Eosinophils/100 WBC (Bld) 3.5 % Normal 0.9-4.0 [facility] Comment on above: Performed By: #### 7 [id number], [id number] #### [facility] (DEFAULT) [address] [place] [address] 35299 Lymphocytes (Bld) [#/Vol] 1.6 x10 Normal 1.3-2.9 [facility] Comment on above: Performed By: #### 7 [id number], [id number] #### [facility] (DEFAULT) [address] [place] [address] 77551 Lymphocytes/100 WBC (Bld) 32 % Normal 14-48 [facility] Comment on above: Performed By: #### 7 [id number], [id number] #### [facility] (DEFAULT) [address] [place] [address] [place] Abs# 0.4 x10 Normal 0.0-0.8 [facility] Comment on above: Performed By: #### 7 [id number], [id number] #### [facility] (DEFAULT) [address] [place] [address] Neut Abs# 2.8 x10 Normal 1.5-9.2 [facility] Comment on above: Performed By: #### 7 [id number], [id number] #### [facility] (DEFAULT) [address] [place] [address] Neutrophils/100 WBC (Bld) 56 % Normal 44-88 [facility] Comment on above: Performed By: #### 7 [id number], [id number] #### [facility] (DEFAULT) [address] [place] [address] CBC w/ Auto Diffon 9 Erythrocyte distribution width (RBC) [Ratio] 13.4 % Normal 11.5-15.0 [facility] Comment on above: Performed By: #### 7 [id number], [id number] #### [facility] (DEFAULT) [address] [place] [address] Hematocrit (Bld) [Volume fraction] 40.4 % Normal 33.7-40.4 [facility] Comment on above: Performed By: #### 7 [id number], [id number] #### [facility] (DEFAULT) [address] [place] [address] Hemoglobin (Bld) [Mass/Vol] 13.9 g/dL Normal 11.3-15.9 [facility] Comment on above: Performed By: #### 7 [id number], [id number] #### [facility] (DEFAULT) [address] [place] [address] Man Diff? Auto Normal [facility] Comment on above: Performed By: #### 7 [id number], [id number] #### [facility] (DEFAULT) [address] [place] [address] MCH (RBC) [Entitic mass] 31 pg Normal 24-34 [facility] Comment on above: Performed By: #### 7 [id number], [id number] #### [facility] (DEFAULT) [address] [place] [address] 62477 MCHC (RBC) [Mass/Vol] 34 g/dL Normal 26-37 [facility] Comment on above: Performed By: #### 7 [id number], [id number] #### [facility] (DEFAULT) [address] [place] [address] MCV (RBC) [Entitic vol] 90 fL Normal 81-100 [facility] Comment on above: Performed By: #### 7 [id number], [id number] #### [facility] (DEFAULT) [address] [place] [address] Platelet mean volume (Bld) [Entitic vol] 10.3 fL High 6.3-10.2 [facility] Comment on above: Performed By: #### 7 [id number], [id number] #### [facility] (DEFAULT) [address] [place] [address] Platelets (Bld) [#/Vol] 199 x10 Normal 138-427 [facility] Comment on above: Performed By: #### 7 [id number], [id number] #### [facility] (DEFAULT) [address] [place] [address] 71484 RBC (Bld) [#/Vol] 4.47 x10 Normal 3.70-5.30 [facility] Comment on above: Performed By: #### 7 [id number], [id number] #### [facility] (DEFAULT) [address] [place] [address] WBC (Bld) [#/Vol] 5.1 x10 Normal 3.5-10.5 [facility] Comment on above: Performed By: #### 7 [id number], [id number] #### [facility] (DEFAULT) [address] [place] [address] Vital Signs Date Time Vital Sign Value Performing Clinician Facility 12-16-2024 15:53-0400 Body temperature 98.2 [degF] Latrell Jack MD Work Phone: [facility] 12-16-2024 15:53-0400 Heart rate 84 /min Latrell Jack MD Work Phone: [facility] 12-16-2024 15:53-0400 Respiratory rate 18 /min Latrell Jack MD Work Phone: [facility] 12-16-2024 15:53-0400 SaO2% (BldA) [Mass fraction] 99 % Latrell Jack MD Work Phone: [facility] 12-16-2024 14:15-0400 Diastolic blood pressure 72 mm[Hg] Latrell Jack MD Work Phone: [facility] 12-16-2024 14:15-0400 Systolic blood pressure 144 mm[Hg] Latrell Jack MD Work Phone: [facility] 12-16-2024 09:00-0400 Body weight 100.3 kg Latrell Jack MD Work Phone: [facility] 12-13-2024 14:41-0400 Body height 160.02 cm Latrell Jack MD Work Phone: [facility] 12-04-2024 13:39-0400 Body height 160 cm Latrell Jack MD Work Phone: [facility] 12-04-2024 13:39-0400 Body mass index (BMI) [Ratio] 38.97 kg/m2 Latrell Jack MD Work Phone: [facility] 12-04-2024 13:39-0400 Body temperature 97.3 [degF] Latrell Jack MD Work Phone: [facility] 12-04-2024 13:39-0400 Body weight 99.79 kg Latrell Jack MD Work Phone: [facility] 12-04-2024 13:39-0400 Diastolic blood pressure 92 mm[Hg] Latrell Jack MD Work Phone: [facility] 12-04-2024 13:39-0400 Heart rate 97 /min Latrell Jack MD Work Phone: [facility] 12-04-2024 13:39-0400 Respiratory rate 22 /min Latrell Jack MD Work Phone: [facility] 12-04-2024 13:39-0400 SaO2% (BldA) [Mass fraction] 97 % Ltarell Jack MD Work Phone: [facility] 12-04-2024 13:39-0400 Systolic blood pressure 186 mm[Hg] Latrell Jack MD Work Phone: [facility] 08-27-2024 10:25-0500 Body height 160 cm Latrell Jack MD Work Phone: [facility] 08-27-2024 10:25-0500 Body mass index (BMI) [Ratio] 36.14 kg/m2 Latrell Jack MD Work Phone: [facility] 08-27-2024 10:25-0500 Body temperature 95.9 [degF] Latrell Jack MD Work Phone: [facility] 08-27-2024 10:25-0500 Body weight 92.53 kg Latrell Jack MD Work Phone: [facility] 08-27-2024 10:25-0500 Diastolic blood pressure 68 mm[Hg] Latrell Jack MD Work Phone: [facility] 08-27-2024 10:25-0500 Heart rate 50 /min Latrell Jack MD Work Phone: [facility] 08-27-2024 10:25-0500 Respiratory rate 22 /min Latrell Jack MD Work Phone: [facility] 08-27-2024 10:25-0500 SaO2% (BldA) [Mass fraction] 97 % Latrell Jack MD Work Phone: [facility] 08-27-2024 10:25-0500 Systolic blood pressure 140 mm[Hg] Latrell Jack MD Work Phone: [facility] 08-07-2024 14:04-0500 Body height 162.6 cm Katarzyna Reilly ELECTROPLATER AUTOMATIC.COMMERCIAL LINES ACCOUNT ASSISTANT Work Phone: [facility] 08-07-2024 14:04-0500 Body mass index (BMI) [Ratio] 34.84 kg/m2 Katarzyna Miles ELECTROPLATER AUTOMATIC.COMMERCIAL LINES ACCOUNT ASSISTANT Work Phone: [facility] 08-07-2024 14:04-0500 Body temperature 97.59 [degF] Katarzyna Miles ELECTROPLATER AUTOMATIC.COMMERCIAL LINES ACCOUNT ASSISTANT Work Phone: [facility] 08-07-2024 14:04-0500 Body weight 92.08 kg Katarzyna Reilly ELECTROPLATER AUTOMATIC.COMMERCIAL LINES ACCOUNT ASSISTANT Work Phone: [facility] 08-07-2024 14:04-0500 Diastolic blood pressure 72 mm[Hg] Katarzyna Miles ELECTROPLATER AUTOMATIC.COMMERCIAL LINES ACCOUNT ASSISTANT Work Phone: [facility] 08-07-2024 14:04-0500 Heart rate 75 /min Katarzyna Reilly ELECTROPLATER AUTOMATIC.COMMERCIAL LINES ACCOUNT ASSISTANT Work Phone: [facility] 08-07-2024 14:04-0500 Systolic blood pressure 151 mm[Hg] Katarzyna Miles ELECTROPLATER AUTOMATIC.COMMERCIAL LINES ACCOUNT ASSISTANT Work Phone: [facility] 07-23-2024 12:49-0500 Body height 160 cm Pac 5 Work Phone: [facility] 07-23-2024 12:49-0500 Body mass index (BMI) [Ratio] 37.45 kg/m2 Pac 5 Work Phone: [facility] 07-23-2024 12:49-0500 Body temperature 98.01 [degF] Pac 5 Work Phone: [facility] 07-23-2024 12:49-0500 Body weight 95.9 kg Pac 5 Work Phone: [facility] 07-23-2024 12:49-0500 Diastolic blood pressure 73 mm[Hg] Pac 5 Work Phone: [facility] 07-23-2024 12:49-0500 Heart rate 77 /min Pacc 5 Work Phone: [facility] 07-23-2024 12:49-0500 Respiratory rate 20 /min Pacc 5 Work Phone: [facility] 07-23-2024 12:49-0500 SaO2% (BldA) [Mass fraction] 99 % Pacc 5 Work Phone: [facility] 07-23-2024 12:49-0500 Systolic blood pressure 153 mm[Hg] Pacc 5 Work Phone: [facility] 05-30-2024 15:36-0500 Body height 160 cm Sandra Arcos CREAM DIPPER Work Phone: [facility] 05-30-2024 15:36-0500 Body mass index (BMI) [Ratio] 38.26 kg/m2 Sandra Umamor CREAM DIPPER Work Phone: [facility] 05-30-2024 15:36-0500 Body weight 97.98 kg Sandra Gillmor CREAM DIPPER Work Phone: [facility] 05-30-2024 15:36-0500 Diastolic blood pressure 82 mm[Hg] Sandra Gillmor CREAM DIPPER Work Phone: [facility] 05-30-2024 15:36-0500 Systolic blood pressure 138 mm[Hg] Sandra Umamor CREAM DIPPER Work Phone: [facility] 05-15-2024 10:02-0500 Body height 160 cm Latrell Jack MD Work Phone: [facility] 05-15-2024 10:02-0500 Body mass index (BMI) [Ratio] 38.26 kg/m2 Latrell Jack MD Work Phone: [facility] 05-15-2024 10:02-0500 Body temperature 97.11 [degF] Latrell Jack MD Work Phone: [facility] 05-15-2024 10:02-0500 Body weight 97.98 kg Latrell Jack MD Work Phone: [facility] 05-15-2024 10:02-0500 Diastolic blood pressure 80 mm[Hg] Latrell Jack MD Work Phone: [facility] 05-15-2024 10:02-0500 Heart rate 78 /min Latrell Jack MD Work Phone: [facility] 05-15-2024 10:02-0500 Respiratory rate 22 /min Latrell Jack MD Work Phone: [facility] 05-15-2024 10:02-0500 SaO2% (BldA) [Mass fraction] 97 % Latrell Jack MD Work Phone: [facility] 05-15-2024 10:02-0500 Systolic blood pressure 148 mm[Hg] Latrell Jack MD Work Phone: [facility] 04-29-2024 10:55-0400 Body height 152.4 cm Xavier Boyd MD Work Phone: [facility] 04-29-2024 10:55-0400 Body mass index (BMI) [Ratio] 42.58 kg/m2 Xavier Boyd MD Work Phone: [facility] 04-29-2024 10:55-0400 Body temperature 98.49 [degF] Xavier Boyd MD Work Phone: [facility] 04-29-2024 10:55-0400 Body weight 98.88 kg Xavier Boyd MD Work Phone: [facility] 04-29-2024 10:55-0400 Diastolic blood pressure 65 mm[Hg] Xavier Boyd MD Work Phone: [facility] 04-29-2024 10:55-0400 Heart rate 90 /min Xavier Boyd MD Work Phone: [facility] 04-29-2024 10:55-0400 Systolic blood pressure 144 mm[Hg] Xavier Boyd MD Work Phone: [facility] 03-20-2024 13:23-0400 Diastolic blood pressure 81 mm[Hg] Leos Sarmini [facility] 03-20-2024 13:23-0400 Heart rate 66 /min Leos Sarmini [facility] 03-20-2024 13:23-0400 Mean blood pressure 112 mm[Hg] Leos Sarmini [facility] 03-20-2024 13:23-0400 Respiratory rate 15 /min Leos Sarmini [facility] 03-20-2024 13:23-0400 SaO2% (BldA) [Mass fraction] 94 % Leos Sarmini [facility] 03-20-2024 13:23-0400 Systolic blood pressure 173 mm[Hg] Leos Sarmini [facility] 03-20-2024 13:15-0400 Diastolic blood pressure 78 mm[Hg] Leos Sarmini [facility] 03-20-2024 13:15-0400 Heart rate 64 /min Leos Sarmini [facility] 03-20-2024 13:15-0400 Mean blood pressure 105 mm[Hg] Leos Sarmini [facility] 03-20-2024 13:15-0400 Respiratory rate 13 /min Leos Sarmini [facility] 03-20-2024 13:15-0400 SaO2% (BldA) [Mass fraction] 96 % Leos Sarmini [facility] 03-20-2024 13:15-0400 Systolic blood pressure 159 mm[Hg] Leos Sarmini [facility] 03-20-2024 13:05-0400 Diastolic blood pressure 76 mm[Hg] Leos Sarmini [facility] 03-20-2024 13:05-0400 Heart rate 64 /min Leos Sarmini [facility] 03-20-2024 13:05-0400 Mean blood pressure 99 mm[Hg] Leos Sarmini [facility] 03-20-2024 13:05-0400 Respiratory rate 12 /min Leos Sarmini [facility] 03-20-2024 13:05-0400 SaO2% (BldA) [Mass fraction] 96 % Leos Sarmini [facility] 03-20-2024 13:05-0400 Systolic blood pressure 145 mm[Hg] Leos Sarmini [facility] 03-20-2024 12:58-0400 Body temperature 97.16 [degF] Leos Sarmini [facility] 03-20-2024 12:50-0400 Respiratory rate 15 /min Leos Sarmini [facility] 03-20-2024 12:45-0400 Respiratory rate 18 /min Leos Sarmini [facility] 03-20-2024 11:14-0400 Blood Pressure Location Leos Sarmini [facility] 03-20-2024 11:14-0400 Body temperature 97.7 [degF] Leos Sarmini [facility] 03-20-2024 11:14-0400 Respiratory rate 18 /min Leos Sarmini [facility] 03-07-2024 11:21-0400 Body height 160 cm Diomedes Amilcar DO Work Phone: [facility] 03-07-2024 11:21-0400 Body mass index (BMI) [Ratio] 44.46 kg/m2 Diomedes Amilcar DO Work Phone: [facility] 03-07-2024 11:21-0400 Body weight 113.85 kg Diomedes Amilcar DO Work Phone: [facility] 03-07-2024 11:21-0400 Diastolic blood pressure 88 mm[Hg] Diomedes Amilcar DO Work Phone: [facility] 03-07-2024 11:21-0400 Heart rate 84 /min Diomedes Amilcar DO Work Phone: [facility] 03-07-2024 11:21-0400 SaO2% (BldA) [Mass fraction] 94 % Diomedes Amilcar DO Work Phone: [facility] 03-07-2024 11:21-0400 Systolic blood pressure 146 mm[Hg] Diomedes Amilcar DO Work Phone: [facility] 02-26-2024 09:12-0400 Blood Pressure Location Leos Sarmini [facility] 02-26-2024 09:12-0400 Diastolic blood pressure 81 mm[Hg] Leos Sarmini [facility] 02-26-2024 09:12-0400 Heart rate 66 /min Leos Sarmini [facility] 02-26-2024 09:12-0400 Respiratory rate 16 /min Leos Sarmini [facility] 02-26-2024 09:12-0400 Systolic blood pressure 131 mm[Hg] Dafne Spears [facility] 10-13-2023 09:42-0400 Diastolic blood pressure 80 mm[Hg] Pa NILL [facility] 10-13-2023 09:42-0400 Heart rate 69 /min Pa NILL [facility] 10-13-2023 09:42-0400 Mean blood pressure 102 mm[Hg] Pa NILL [facility] 10-13-2023 09:42-0400 Respiratory rate 15 /min Pa NILL [facility] 10-13-2023 09:42-0400 SaO2% (BldA) [Mass fraction] 97 % Pa NILL [facility] 10-13-2023 09:42-0400 Systolic blood pressure 146 mm[Hg] Pa NILL [facility] 10-13-2023 09:32-0400 Diastolic blood pressure 76 mm[Hg] Pa NILL [facility] 10-13-2023 09:32-0400 Heart rate 67 /min Pa NILL [facility] 10-13-2023 09:32-0400 Mean blood pressure 94 mm[Hg] Pa NILL [facility] 10-13-2023 09:32-0400 Respiratory rate 20 /min Pa NILL [facility] 10-13-2023 09:32-0400 SaO2% (BldA) [Mass fraction] 95 % Pa NILL [facility] 10-13-2023 09:32-0400 Systolic blood pressure 129 mm[Hg] Pa PALMERL [facility] 10-13-2023 09:27-0400 Diastolic blood pressure 71 mm[Hg] Pa PALMERL [facility] 10-13-2023 09:27-0400 Heart rate 70 /min Pa PALMERL [facility] 10-13-2023 09:27-0400 Mean blood pressure 92 mm[Hg] Pa NILL [facility] 10-13-2023 09:27-0400 Respiratory rate 15 /min Pa PALMERL [facility] 10-13-2023 09:27-0400 SaO2% (BldA) [Mass fraction] 96 % Pa NILL [facility] 10-13-2023 09:27-0400 Systolic blood pressure 134 mm[Hg] Pa PALMERL [facility] 10-13-2023 09:17-0400 Body temperature 97.16 [degF] Pa PALMERL [facility] 10-13-2023 09:10-0400 Respiratory rate 16 /min Pa PAMLERL [facility] 10-13-2023 09:05-0400 Respiratory rate 16 /min Pa PALMERL [facility] 10-13-2023 08:03-0400 Body temperature 97.34 [degF] Pa NILL [facility] 08-11-2023 09:53-0500 Body height 160 cm Latrell Jack MD Work Phone: [facility] 08-11-2023 09:53-0500 Body mass index (BMI) [Ratio] 40.39 kg/m2 Latrell Jack MD Work Phone: [facility] 08-11-2023 09:53-0500 Body temperature 97.11 [degF] Latrell Jack MD Work Phone: [facility] 08-11-2023 09:53-0500 Body weight 103.42 kg Latrell Jack MD Work Phone: [facility] 08-11-2023 09:53-0500 Diastolic blood pressure 70 mm[Hg] Latrell Jack MD Work Phone: [facility] 08-11-2023 09:53-0500 Heart rate 94 /min Latrell Jack MD Work Phone: [facility] 08-11-2023 09:53-0500 SaO2% (BldA) [Mass fraction] 97 % Latrell Jack MD Work Phone: [facility] 08-11-2023 09:53-0500 Systolic blood pressure 140 mm[Hg] Latrell Jack MD Work Phone: [facility] Healthcare Encounters Encounter Date Encounter Type Care Provider Facility Start: 12-13-2024 Non-patient / Non-visit Latrell kendall MD Work Phone: [facility] Work Phone: Start: 12-12-2024 End: 12-16-2024 Evaluation and management of inpatient Latrell Jack MD Work Phone: [address] Work Phone: Start: 12-12-2024 End: 12-12-2024 Clinisync Result Encounter Generic External Data Provider [facility] External Department Unsolicited Start: 12-12-2024 End: 12-12-2024 Clinisync Result Encounter Generic External Data Provider [facility] External Department Unsolicited Start: 12-12-2024 End: 12-12-2024 Emergency department patient visit Elmer Kohli Facility:[facility] Start: 12-04-2024 End: 12-04-2024 Office outpatient visit [...] 10-29-2024 Refill Latrell Jack MD Work Phone: [facility] Comment on above: Chronic obstructive pulmonary disease, unspecified COPD type (CMS/HCC); Primary insomnia Start: 09-26-2024 End: 09-26-2024 ambulatory SANDRA GILLKIMBERLY Not Available Start: 08-27-2024 End: 08-27-2024 Bamboo [...] ness visit, subsequent (Primary Dx); Prediabetes; Dyslipidemia (CMS/HCC); Encounter for long-term (current) use of medications; Essential hypertension, benign (CMS/HCC); Class 2 severe obesity due to excess calories with serious comorbidity and body mass index (BMI) of 36.0 to 36.9 in adult (CMS/HCC); Chronic obstructive pulmonary disease, unspecified COPD type (CMS/HCC); 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CMS/HCC) Start: 08-07-2024 End: 08-07-2024 Patient encounter procedure Katarzyna Snyder ELECTROPLATER AUTOMATIC.COMMERCIAL LINES ACCOUNT ASSISTANT Work Phone: General Surgery Comment on above: Postoperative visit (Primary Dx) Start: 08-07-2024 End: 08-07-2024 ambulatory KATARZYNA SNYDER Facility:[facility] Start: 07-31-2024 End: 07-31-2024 Telephone encounter Latrell Jack MD Work Phone: [facility] Start: 07-30-2024 End: 07-30-2024 Refill Latrell Jack MD Work Phone: [facility] Comment on above: Primary insomnia Start: 07-24-2024 End: 07-26-2024 Evaluation and management of inpatient XAVIER BOYD Facility:[facility] Start: 07-23-2024 End: 07-23-2024 ambulatory LATRELL JACK Facility:[facility] Start: 07-23-2024 End: 07-23-2024 Clinisync Result [...] Start: 07-23-2024 End: 07-23-2024 Preprocedural examination done [place] [id number] Work Phone: [facility] Work Phone: Start: 07-23-2024 End: 07-23-2024 ambulatory LATRELL JACK Facility:[facility] Start: 07-23-2024 Encounter for other preprocedural examination LATRELL JACK [facility] Start: 06-29-2024 End: 07-15-2024 Telephone encounter Sandra Arcos NP Work Phone: [facility] [employer] [address] Start: 06-24-2024 End: 06-24-2024 ambulatory Talat Arguello MD Facility:[facility] Start: 06-13-2024 End: 06-13-2024 Telephone encounter Latrell Jack MD Work Phone: [facility] Comment on above: Medication Question Start: 06-10-2024 End: 06-10-2024 ambulatory Talat Arguello MD Facility:[facility] Start: 05-30-2024 End: 05-30-2024 Office outpatient visit 25 minutes Sandra Arcos NP Work Phone: [facility] Comment on above: Memory loss (Primary Dx); Severe episode of recurrent major depressive disorder, 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 Start: 05-15-2024 End: 05-15-2024 Office outpatient visit 25 minutes Latrell Jack MD Work Phone: [facility] Comment on above: Essential hypertensi on, [...] 05-06-2024 ambulatory Talat Arguello MD Facility:[facility] Start: 05-04-2024 End: 05-06-2024 ambulatory Xavier Boyd MD Work Phone: [facility] Comment on above: 15.25 Cure (Lap P araesophageal Hernia Repair/EGD 4 hours los 1) Start: 05-04-2024 End: 05-06-2024 Preprocedural examination done Xavier Boyd MD Work Phone: [facility] Start: 04-29-2024 End: 04-29-2024 ambulatory DAFNE SPEARS Facility:[facility] Start: 04-29-2024 End: 04-29-2024 Office outpatient new 45 minutes Xavier Boyd MD Work Phone: General Surgery Comment on above: Paraesophageal herni a (Primary Dx) Start: 04-22-2024 End: 04-22-2024 Telephone encounter Ashlie Calderon MA General Surgery Start: 04-15-2024 End: 04-15-2024 ambulatory Talat Arguello MD Facility: [place] Start: 04-11-2024 End: 04-11-2024 Patient encounter procedure Mao Morrow PhD Work Phone: [facility] Comment on above: Memory loss (Primary Dx); Word finding difficulty; EDWIN on CPAP; Other insomnia; Other chronic pain; Generalized anxiety disorder (CMS/HCC); Severe episode of recurrent major depressive disorder, without psychotic features (HCC) ([facility]/HCC) Start: 04-11-2024 End: 04-11-2024 ambulatory LATRELL SALDIVAROrtega Not Available Start: 03-26-2024 End: 03-26-2024 Patient encounter procedure Mao Morrow PhD Work Phone: [facility] Comment on above: Memory loss (Primary Dx); Word finding difficulty; EDWIN on CPAP; Other insomnia; Other chronic pain; Generalized anxiety disorder ([facility]/HCC) Start: 03-26-2024 End: 03-26-2024 ambulatory MAO MORROW Not Available Start: 03-26-2024 End: 03-26-2024 Bamboo flowsheet Mao Morrow PhD Work Phone: [facility] Start: 03-26-2024 End: 03-26-2024 Bamboo flowsheet Mao Morrow PhD Work Phone: [facility] Start: 03-26-2024 End: 03-26-2024 ambulatory Leos Talal Sarmini Facility:[facility] Start: 03-26-2024 End: 03-26-2024 Patient encounter procedure Leos Talal Sarmini [facility] Start: 03-25-2024 End: 03-25-2024 ambulatory DIOMEDES FITZGERALD Not Available Start: 03-20-2024 End: 03-20-2024 ambulatory Leos Talal Sarmini Facility:[facility] Start: 03-20-2024 End: 03-20-2024 Patient encounter procedure Leos Talal Sarmini [facility] Start: 03-07-2024 End: 03-07-2024 Bamboo flowsheet Diomedes Fitzgerald DO Work Phone: [facility] Start: 03-07-2024 End: 03-07-2024 Bamboo flowsheet Diomedes Fitzgerald DO Work Phone: [facility] Start: 03-07-2024 End: 03-07-2024 Clinisync Result Encounter Diomedes Fitzgerald DO Work Phone: [facility] External Department Unsolicited Start: 03-07-2024 End: 03-07-2024 Office outpatient visit 40 minutes Diomedes Fitzgerald DO Work Phone: [facility] [employer] [facility] Comment on above: Memory loss (Primary Dx); 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CMS/HCC); Mild cognitive impairment; EDWIN (obstructive sleep apnea) Start: 03-07-2024 End: 03-07-2024 ambulatory DIOMEDES FITZGERALD Not Available Start: 02-26-2024 End: 02-26-2024 ambulatory Dafne Spears Facility:[facility] Start: 02-26-2024 End: 02-26-2024 Patient encounter procedure Dafne Spears [facility] Start: 02-13-2024 [facility]ulatory [facility] Start: 02-09-2024 End: 02-09-2024 ambulatory LATRELL JACK Not Available Start: 10-13-2023 End: 10-13-2023 ambulatory Pa R NILL Facility:[facility] Start: 10-13-2023 End: 10-13-2023 Patient encounter procedure Pa PALMERL [facility] Start: 09-12-2023 End: 09-12-2023 ambulatory Pa R NILL Facility: [place] Start: 09-05-2023 ambulatory Pa TRACEY Facility:[facility] Start: 08-11-2023 Bamboo flowsheet Latrell Jack MD Work Phone: [facility] Start: 08-11-2023 Bamboo flowsheet Latrell Jack MD Work Phone: [facility] Start: 08-11-2023 End: 08-11-2023 Office outpatient visit 25 minutes Latrell Jack MD Work Phone: [facility] Comment on above: Essential hypertensi on, [...] 09-09-2021 Encounter for preprocedural laboratory examination MARNIE Fuentes [facility] Start: 09-07-2021 End: 09-07-[address] LATRELL JACK Facility:[facility] Start: 09-07-2021 End: 09-07-2021 Encounter for preprocedural laboratory examination DR LATRELL JACK Facility:[facility] Start: 09-03-2021 Encounter for preprocedural cardiovascular examination MARNIE PEMBERTON [facility] Start: 09-02-2021 End: 09-03-[address] LATRELL JACK Facility:[facility] Start: 09-02-2021 End: 09-03-2021 Encounter for preprocedural cardiovascular examination DR LATRELL JACK Facility:[facility] Procedures Date Procedure Procedure Detail Performing Clinician Start: 12-12-2024 XR HIP LT MIN 2V Generic External Data Provider Start: 08-27-2024 ALL CBC WITH AUTO DIFF Latrell Jack MD Work Phone: Start: 07-23-2024 Antibody screen LATRELL JACK Comment on above: Order Comment: Specimen Type: BLOOD SPEC IMEN Ordering Facility: [facility] Address: [address] [place] [address] Performed By: #### 2 4321-2, HSTNT, 89342-5, 2777-1 #### [facility] CLIA [id number] [address] [place] [address] [place] Start: 07-23-2024 [facility] CBC W AUTO DIFF BLD Generic External Data Provider Start: 03-20-2024 Esophagogastroduodenoscopy Dafne Houcas doris Start: 03-07-2024 ALL FOLIC ACID Diomedes Fitzgerald DO Work Phone: Start: 03-07-2024 ALL THYROID STIM HORMONE Diomedes Fitzgerald D O Work Phone: Start: 11-28-2023 Mammography Diomedes Fitzgerald DO Work Phone: Start: 10-13-2023 Colonoscopy Diomedes Amilcar DO Work Phone: Start: 10-13-2023 Colonoscopy Pa WEBB Hand tendon repaired Pa WEBB Open reduction of fr acture of ankle with internal fixation Pa PALMERL Repair of meniscus Pa MORALES Tonsillectomy Pa WEBB Plan of Treatment Date Care Activity Detail Author Start: 10-12-2033 Screening for malign ant neoplasm of colon [facility] Start: 07-26-2027 Diabetes Screening Diabetes Screenin g [facility] Start: 07-23-2027 Diabetes Screening Diabetes Screenin g [facility] Start: 09-21-2026 RSV Vaccine (1 - 1-d ose 75+ series) RSV Vaccine (1 - 1-dose 75+ series) [facility] Start: 08-07-2025 End: 09-06-2025 CT Chest WO contrast CT CHEST WO IVCON Radiology Routine Postoperative visit Expected: 08/07/2025, Expires: 09/06/2025 [facility] Work Phone: Comment on above: Expected: 08/07/2025 , Expires: 09/06/2025 Start: 02-24-2025 End: 02-24-2025 Patient encounter procedure 02/24/2025 10:30 AM EDT Office Visit [facility] [address] [place] [address] Latrell Jack MD [address] [place] [address] [facility] Start: 02-03-2025 End: 02-03-2025 Patient encounter procedure 02/03/2025 4:00 PM EDT Office Visit [facility] [place] [address] [place] [phone] Diomedes Fitzgerald DO [address] [place] [address] [facility] Start: 12-30-2024 End: 12-30-2024 Patient encounter procedure 12/30/2024 1:00 PM EDT Office Visit [facility] [address] [place] [phone] Diomedes Fitzgerald DO [address] [place] [address] [facility] Start: 12-16-2024 [facility] Start: 12-12-2024 Referral to Rn Referral [facility] Start: 12-12-2024 Hospital admission [facility] Start: 11-27-2024 Screening for malign ant neoplasm of breast Mammogram [facility] Start: 09-26-2024 End: 09-26-2024 Patient encounter procedure [facility] [place] [address] Start: 08-27-2024 End: 08-27-2025 Basic metabolic 1998 panel - Serum or Plasma Basic metabolic panel Lab Routine Essential hypertension, benign (CMS/HCC) Expected: 08/27/2024 (Approximate), Expires: 08/27/2025 [facility] Comment on above: Expected: 08/27/2024 (Approximate), Expires: 08/27/2025 Start: 08-27-2024 End: 08-27-2025 CBC W Auto Differential panel - Blood CBC and differential Lab Routine Encounter for long-term (current) use of medications Expected: 08/27/2024 (Approximate), Expires: 08/27/2025 [facility] Comment on above: Expected: 08/27/2024 (Approximate), Expires: 08/27/2025 Start: 08-27-2024 End: 08-27-2025 Hemoglobin A1c/Hemoglobin.total in Blood Hemoglobin A1c Lab Routine Prediabetes Expected: 08/27/2024 (Approximate), Expires: 08/27/2025 [facility] Work Phone: Comment on above: Expected: 08/27/2024 (Approximate), Expires: 08/27/2025 Start: 08-27-2024 End: 08-27-2025 Hepatic function 2000 panel - Serum or Plasma Hepatic function panel Lab Routine Encounter for long-term (current) use of medications Expected: 08/27/2024 (Approximate), Expires: 08/27/2025 [facility] Comment on above: Expected: 08/27/2024 (Approximate), Expires: 08/27/2025 Start: 08-27-2024 End: 08-27-2025 Lipid 1996 panel - Serum or Plasma Lipid panel Lab Routine Dyslipidemia (CMS/HCC) Expected: 08/27/2024 (Approximate), Expires: 08/27/2025 [facility] Comment on above: Expected: 08/27/2024 (Approximate), Expires: 08/27/2025 Start: 08-27-2024 End: 08-27-2025 Thyrotropin [Units/volume] in Serum or Plasma TSH Lab Routine Class 2 severe obesity due to excess calories with serious comorbidity and body mass index (BMI) of 36.0 to 36.9 in adult (CMS/HCC) Expected: 08/27/2024 (Approximate), Expires: 08/27/2025 [facility] Comment on above: Expected: 08/27/2024 (Approximate), Expires: 08/27/2025 Start: 08-16-2024 End: 08-16-2024 Patient encounter procedure 08/16/2024 9:00 AM EST Office Visit [facility] [address] [place] [address] Latrell Jack MD [address] [place] [address] [facility] Start: 07-24-2024 End: 07-24-2024 Admission to same day surgery center 07/24/2024 10:51 AM EST - 07/24/2024 3:42 PM EST Surgery Admitting [address] [place] [address] Xavier Boyd MD [address] [place] [address] LAPAROSCOPIC RPR PARAESOPHAGEAL HERNIA W/O FUNDOPLASTY W/ [...] 07-10-2024 Advance Directive Discussion Advance Directive Discussion [facility] Start: 06-29-2024 End: 10-29-2024 aPTT in Platelet poor plasma by Coagulation assay ACTIVATED PARTIAL THROMBOPLASTIN TIME Lab Routine Preoperative examination Paraesophageal hernia Abnormal coagulation profile Expected: 06/29/2024, Expires: 10/29/[address] [facility] Comment on above: Expected: 06/29/2024 , Expires: 10/29/2024 Start: 06-29-2024 End: 10-29-2024 CBC W Auto Differential panel - Blood COMPLETE BLOOD COUNT AND DIFFERENTIAL Lab Routine Preoperative examination Paraesophageal hernia Expected: 06/29/2024, Expires: 10/29/[address] [facility] Comment on above: Expected: 06/29/2024 , Expires: 10/29/2024 Start: 06-29-2024 End: 10-29-2024 Comprehensive metabolic 2000 panel - Serum or Plasma COMPREHENSIVE METABOLIC PANEL Lab Routine Preoperative examination Paraesophageal hernia Expected: 06/29/2024, Expires: 10/29/[address] [facility] Comment on above: Expected: 06/29/2024 , Expires: 10/29/2024 Start: 06-29-2024 End: 10-29-2024 PT panel - Platelet poor plasma by Coagulation assay PROTHROMBIN TIME Lab Routine Preoperative examination Paraesophageal hernia Abnormal results of liver function studies Expected: 06/29/2024, Expires: 10/29/[address] [facility] Comment on above: Expected: 06/29/2024 , Expires: 10/29/2024 Start: 06-29-2024 End: 10-29-2024 TYPE AND SCREEN,30 DAY TYPE AND SCREEN,30 DAY Blood Bank Routine Preoperative examination Paraesophageal hernia Expected: 06/29/2024, Expires: 10/29/[address] [facility] Comment on above: Expected: 06/29/2024 , Expires: 10/29/2024 Start: 05-30-2024 End: 05-30-2024 Patient encounter procedure [facility] [place] [facility] Comment on above: Arrived Start: 05-15-2024 End: 05-15-2024 Patient encounter procedure 05/15/2024 10:00 AM EST Office Visit [facility] [address] [place] [address] Latrell Jack MD [address] [place] [address] [facility] Start: 04-29-2024 End: 04-29-2024 Patient encounter procedure 04/29/2024 11:00 AM EDT Office Visit General Surgery [address] [address] Xavier Boyd MD [address] [place] [address] Hiatal Hernia General Surgery Comment on above: Hiatal Hernia Start: 04-11-2024 End: 04-11-2024 Patient encounter procedure 04/11/2024 9:00 AM EDT Office Visit [facility] [address] [place] [phone] [facility] Start: 03-26-2024 End: 03-26-2024 Patient encounter procedure 03/26/2024 2:30 PM EDT Office Visit [facility] [address] [place] [phone] Mao Morrow, PhD [address] [place], [place] [phone] Arrived [facility] Comment on above: Arrived Start: 03-25-2024 End: 03-25-2024 Professional / ancillary services management 03/25/2024 8:45 AM EDT Ancillary Procedure [facility] [place] [address] [place] [phone] [facility] Start: 03-19-2024 End: 03-19-2024 Patient encounter procedure 03/19/2024 2:00 PM EDT Office Visit [facility] [address] [phone] Mao Morrow, PhD [address] [place], [place] [phone] [facility] Start: 03-10-2024 Covid-19 Vaccine ( season) Covid-19 Vaccine ( season) [facility] Start: 03-10-2024 Covid-19 Vaccine ( season) Covid-19 Vaccine () [facility] Start: 03-10-2024 Influenza vaccination Influenza Vacc ine (#1) [facility] Start: 03-07-2024 End: 03-07-2025 Cobalamin (Vitamin B12) [Mass/volume] in Serum or Plasma Vitamin B12 Lab Routine Memory loss Expected: 03/07/2024 (Approximate), Expires: 03/07/2025 [facility] Comment on above: Expected: 03/07/2024 (Approximate), Expires: 03/07/2025 Start: 03-07-2024 End: 03-07-2025 EEG awake or drowsy EEG awake or drowsy Neurology Routine Memory loss Expected: 03/07/2024 (Approximate), Expires: 03/07/2025 [facility] Work Phone: Comment on above: Expected: 03/07/2024 (Approximate), Expires: 03/07/2025 Start: 03-07-2024 End: 03-07-2025 Folate [Mass/volume] in Serum or Plasma Folate Lab Routine Memory loss Expected: 03/07/2024 (Approximate), Expires: 03/07/2025 [facility] Comment on above: Expected: 03/07/2024 (Approximate), Expires: 03/07/2025 Start: 03-07-2024 End: 03-07-2025 MR Brain WO contrast MR brain wo contrast Imaging Routine Memory loss Expected: 03/07/2024, Expires: 03/07/2025 [facility] Comment on above: Expected: 03/07/2024 , Expires: 03/07/2025 Start: 03-07-2024 End: 03-07-2025 Thyrotropin [Units/volume] in Serum or Plasma TSH Lab Routine Memory loss Expected: 03/07/2024 (Approximate), Expires: 03/07/2025 [facility] Comment on above: Expected: 03/07/2024 (Approximate), Expires: 03/07/2025 Start: 03-07-2024 End: 03-07-2024 Patient encounter procedure 03/07/2024 11:30 AM EDT Office Visit [facility] [place] [address] [facility] [place] [phone] Diomedes Fitzgerald DO [address] [place] [address] 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CMS/HCC) [facility] Comment on above: 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CMS /HCC) Start: 02-09-2024 End: 02-09-2024 Patient encounter procedure 02/09/2024 9:45 AM EDT Office Visit [facility] [address] [place] [phone] Latrell Jack MD [address] [place] [phone] [facility] Start: 08-11-2023 End: 08-11-2024 Basic metabolic 1998 panel - Serum or Plasma Basic metabolic panel Lab Routine Encounter for long-term (current) use of medications Expected: 08/11/2023 (Approximate), Expires: 08/11/2024 [facility] Comment on above: Expected: 08/11/2023 (Approximate), Expires: 08/11/2024 Start: 08-11-2023 End: 08-11-2024 CBC W Auto Differential panel - Blood CBC and differential Lab Routine Encounter for long-term (current) use of medications Expected: 08/11/2023 (Approximate), Expires: 08/11/2024 [facility] Comment on above: Expected: 08/11/2023 (Approximate), Expires: 08/11/2024 Start: 08-11-2023 End: 08-11-2024 Hemoglobin A1c measurement Hemoglobin A1c Lab Routine Morbid obesity due to excess calories (CMS/HCC) Expected: 08/11/2023 (Approximate), Expires: 08/11/2024 [facility] Work Phone: Comment on above: Expected: 08/11/2023 (Approximate), Expires: 08/11/2024 Start: 08-11-2023 End: 08-11-2024 Hepatic function 2000 panel - Serum or Plasma Hepatic function panel Lab Routine Encounter for long-term (current) use of medications Expected: 08/11/2023 (Approximate), Expires: 08/11/2024 [facility] Comment on above: Expected: 08/11/2023 (Approximate), Expires: 08/11/2024 Start: 08-11-2023 End: 08-11-2024 Lipid 1996 panel - Serum or Plasma Lipid panel Lab Routine Dyslipidemia (CMS/HCC) Expected: 08/11/2023 (Approximate), Expires: 08/11/2024 [facility] Comment on above: Expected: 08/11/2023 (Approximate), Expires: 08/11/2024 Start: 08-11-2023 End: 08-11-2024 Thyrotropin [Units/volume] in Serum or Plasma TSH Lab Routine Morbid obesity due to excess calories (CMS/HCC) Expected: 08/11/2023 (Approximate), Expires: 08/11/2024 [facility] Comment on above: Expected: 08/11/2023 (Approximate), Expires: 08/11/2024 Start: 08-11-2023 End: 08-11-2023 Patient encounter procedure 08/11/2023 9:45 AM EST Office Visit [facility] [address] [place] [address] Latrell Jack MD [address] [place] [phone] Arrived [facility] Comment on above: Arrived Start: 07-10-2023 Advance Directive Discussion Advance Directive Discussion [facility] Start: 03-10-2023 Influenza vaccination Influenza Vacc ine (#1) [facility] Start: 09-21-2016 Screening for osteoporosis Bone Density Screening [facility] Start: 09-21-2001 Shingrix Vaccine (1 of 2) Shingrix Vaccine (1 of 2) [facility] Start: 09-21-1996 Diabetes Screening Diabetes Screenin g [facility] Start: 09-21-1996 Lipid panel Lipid Screening [facility] Start: 09-21-1996 Screening for malign ant neoplasm of colon [facility] Start: 1991 Screening for malign ant neoplasm of breast [facility] Start: 09-21-1981 Zoledronic acid therapy Alpha- 1 Antitrypsin Deficiency Screening [facility] Start: 09-21-1970 Urine microalbumin profile DTaP,Tdap,Td Vaccine (1 - Tdap) [facility] Start: 09-21-1969 Annual PCP Team Host Hostess julio Disease Visit Annual PCP Team Chronic Disease Visit [facility] Start: 09-21-1969 Anxiety Screening Anxiety Screening [facility] Start: 09-21-1969 BP Controlled (<130/80) BP Controlle d (<130/80) [facility] Start: 09-21-1969 Depression Screening Depression Scre ening [facility] Start: 09-21-1969 Hepatitis C screening Hepatitis C Sc reening [facility] Start: 09-21-1969 Spirometry Spirometry [facility] Start: 1950 Medicare Annual Well ness (AWV) Medicare Annual Wellness (AWV) [facility] Start: 1950 Screening for malign ant neoplasm of colon [facility] End: 05-04-2025 ECG COMPLETE ECG COMPLETE ECG Routine Preoperative examination Paraesophageal hernia 1 Occurrences starting 05/06/2024 until 05/04/[address] [facility] Comment on above: 1 Occurrences starti ng 05/06/2024 until 05/04/2025 Laps rpr paraesphgl hrna incl fundplsty w/mesh LAPAROSCOPIC RPR PARAESOPHAGEAL HERNIA W/O FUNDOPLASTY W/ MESH Preoperative examination Paraesophageal hernia [facility] Patient Education Depression in adults - Discharge instructions [facility] Instructions Know your Meds [facility] Work Phone: Patient referral [facility] Work Phone: REFER FOR ADMIT INTERVIEW REFER FOR ADMIT INTERVIEW Procedures Routine Preoperative examination Paraesophageal hernia Ordered: 05/06/2024 [facility] Work Phone: Comment on above: Ordered: 05/06/2024 End: 08-23-2025 XR Chest PA and Lateral XR CHEST 2V FRONTAL/LAT Radiology Routine Pre-op evaluation Chronic obstructive pulmonary disease, unspecified COPD type (HCC) CHENEY (dyspnea on exertion) 1 Occurrences starting 07/23/2024 until 08/23/2025 [facility] Work Phone: Comment on above: 1 Occurrences starti ng 07/23/2024 until 08/23/2025 XR Chest PA and Lateral XR CHEST 2V FRONTAL/LAT Radiology Routine Pre-op evaluation Chronic obstructive pulmonary disease, unspecified COPD type (HCC) CHENEY (dyspnea on exertion) 07/23/2024 1:58 PM EST [facility] Immunizations Immunization Date Immunization Notes Care Provider Fa cility 04-09-2023 influenza virus vacc ine, unspecified formulation Pa NILL [facility] 05-03-2022 SARS-CoV-2 (COVID-19 ) [id number] Pa NILL [facility] 05-03-2022 influenza virus vacc ine, unspecified formulation Latrell Jack MD Work Phone: [facility] 11-25-2021 pneumococcal conjuga te vaccine, 13 valent Diomedes Amilcar DO Work Phone: [facility] 04-12-2021 influenza virus vacc ine, unspecified formulation Dafne Spears [facility] 04-12-2021 SARS-CoV-2 (COVID-19 ) mRNA BNT-162b2 vax Pa [employer] [facility] Comment on above: Result Comment: 2023: [id number] 09-14-2020 SARS-CoV-2 (COVID-19 ) mRNA BNT-162b2 vax Pa NILL [facility] Comment on above: Result Comment: 2023: [id number] 08-27-2020 SARS-CoV-2 (COVID-19 ) mRNA BNT-162b2 vax Pa NILL [facility] Comment on above: Result Comment: 2023: [id number] 06-16-2020 influenza virus vacc ine, unspecified formulation Leos Sarmini [facility] 05-16-2019 influenza virus vacc ine, unspecified formulation Leos Sarmini [facility] 05-16-2019 pneumococcal polysaccharide vaccine, 23 valent Leos Sarmini [facility] 05-12-2018 influenza virus vacc ine, unspecified formulation Leos Sarmini [facility] 01-31-2018 pneumococcal conjuga te vaccine, 13 valent Leos Sarmini [facility] 05-10-2016 influenza virus vacc ine, unspecified formulation Leos Sarmini [facility] 04-16-2015 influenza virus vacc ine, unspecified formulation Leos Sarmini [facility] Payers Date Payer Category Payer Self-pay 2016 Private Health Insurance [id number] 2016 Medicare [id number] 2016 Unknown 1959 Medicare [id number] 1959 Private Health Insurance [id number] 1951 Unknown [id number] 2.16.84 0.1.159280.3.579.2.593 1951 Unknown [id number] 2.16.84 0.1.138077.3.579.2.593 1951 Unknown [id number] 2.16.84 0.1.346454.3.579.2.593 1951 Unknown [id number] 2.16.84 0.1.955715.3.579.2.593 1951 Unknown [id number] 2.16.84 0.1.478087.3.579.2.593 1951 Unknown [id number] 2.16.84 0.1.042120.3.579.2.593 1951 Unknown [id number] 2.16.84 0.1.604252.3.579.2.593 1951 Unknown [id number] 2.16.8 40.1.910201.3.579.2.727 1951 Unknown [id number] 2.16.8 40.1.607275.3.579.2.727 1951 Unknown [id number] 2.16.8 40.1.630039.3.579.2.727 1951 Unknown [id number] 2.16.8 40.1.731789.3.579.2.727 1951 Unknown [id number] 2.16.8 40.1.265162.3.579.2.727 1951 Unknown [id number] 2.16. 840.1.134119.3.579.2.196 1951 Unknown [id number] 2.16. 840.1.541511.3.579.2.196 1951 Unknown [id number] 2.16. 840.1.469413.3.579.2.196 1951 Unknown [id number] 2.16. 840.1.851512.3.579.2.196 1951 Unknown [id number] 2.16. 840.1.368924.3.579.2.196 1951 Unknown [id number] 2.16.84 0.1.124353.3.579.2.1259 1951 Unknown [id number] 2.16.84 0.1.609478.3.579.2.1259 1951 Unknown [id number] 2.16.84 0.1.151170.3.579.2.1259 1951 Unknown [id number] 2.16.84 0.1.698082.3.579.2.1259 1951 Unknown [id number] 2.16.84 0.1.103374.3.579.2.1259 1951 Unknown [id number] 2.16.84 0.1.707690.3.579.2.1259 1951 Unknown [id number] 2.16.84 0.1.115835.3.579.2.1259 1951 Unknown [id number] 2.16.84 0.1.085145.3.579.2.9 1951 Unknown [id number] 2.16.84 0.1.690432.3.579.2.1259 1951 Unknown [id number] 2.16.84 0.1.902660.3.579.2.1259 1951 Unknown [id number] 2.16.8 40.1.780173.3.579.2.727 1951 Unknown [id number] 2.16.8 40.1.982310.3.579.2.727 1950 Unknown [id number] 2.16.8 40.1.284304.3.579.2.727 Unknown [id number] 2.16.8 40.1.608852.3.579.2.531 Social History Date Type Detail Facility Start: 08-05-2023 End: 12-12-2024 Tobacco smoking status OHIS Ex-smoker [facility] Start: 07-10-1967 End: 01-08-2012 History of tobacco use Current smoker [facility] Start: 07-10-1967 End: 01-08-2012 History of tobacco use Cigarette Smoker [facility] Start: 08-05-2023 End: 02-02-2024 Cigarettes smoked current (pack per day) - Reported 1 [facility] Start: 08-05-2023 End: 02-02-2024 Tobacco use panel [facility] Start: 1950 Sex Assigned At Not on file N [facility] Start: 08-11-2023 End: 05-30-2024 Tobacco use and exposure Smokeless tobacco non-user [facility] Tobacco smoking status Never [facility] [place] Start: 03-07-2024 End: 12-04-2024 Alcoholic beverage intake [...] per day [facility] Tobacco smoking stat [facility] Tobacco smoking consumption unknown [facility] Start: 04-23-2024 Gender identity Identifies as female gender (finding) [facility] Start: 07-23-2024 End: 08-07-2024 Alcoholic beverage intake Ex-drinker (finding) [facility] Start: 07-23-2024 Tobacco Comment Age 16 - 60, 1 /2 - 2 PPD, quit while at [address] [facility] How often do you nee d to have someone help you when you read instructions, pamphlets, or other written material from your doctor or pharmacy [SILS] Sometimes [facility] Sexual Orientation [facility] Start: 09-04-2018 End: 12-16-2024 Sex Female (finding) [facility] Start: 1950 Sex Assigned At Female F [facility] Medical Equipment Procedure Code Equipment Code Equipment Original Text Equipment Identifier Dates Wever Thk1.65mm P tfe 4x.5in Cardiovascular Sterile - [id number] Start: 07-24-2024 Goals Date Patient Goal Desired Activity /State Functional Status Date Assessment Result Facility 12-16-2024 Functional status Patient at Baseline [facility] Work Phone: 03-20-2024 Functional Status N/A [facility] 02-26-2024 Functional Status N/A [facility] 10-13-2023 Functional Status N/A [facility] Mental Status Date Assessment Result Facility 12-16-2024 Cognitive function Cognitive Sta tus Patient at Baseline [facility] Work Phone: Clinical Notes 09-10-2021 to 12-16-2024 Note Date & Type Note Facility 12-16-2024 Discharge summary [facility] 12-15-2024 Progress note Note Date/Time December 15, 2024 10:52am [facility] [address] [place] [address] Psychiatry Progress Note Signed Patient: Shey Obrien MR#: [id number] : 1950 Acct:[id number] Age/Sex: 74 / F Adm Date: 5 Loc: Room: [address] [place] [address] Type : ADM IN Attending Dr: Erik Kim MD Copies to: ~ Date of Service: 12/15/2024 Subjective Subjective Narrative: Ms. Obrien reported she is feeling much better today. She believes her medicine is working very well for her. She denies depressed mood, anxiety, suicidal ideation, homicidal ideation, and AVH. She reports good appetite and good sleep. She denies any side effect from medication. Overall, she feels like she has much improved and is ready for discharge. All questions concerns were addressed with patient. Patient was personally seen by me on the day of the encounter. I reviewed the history and performed the bowles elements of the assessment. I formulated the planof care and confirmed this with the resident as noted below The patient is currently functioning at her baseline. She is doing fairly well.She reports improved mood and appetite, improved ability to enjoy certain activities, reduction of feelings of worthlessness or guilt, and improved focus and concentration. She continues to struggle with anxiety occasionally. She was outin the common area socializing and communicating with peers appropriately. As weare discussing discharge plans, she described her current mental health as stable. She denied any suicidal thoughts. She is likely ready to be discharged tomorrow. She is tolerating her medications without difficulty. She denied current SI/HI and verbalized the intent to notify staff if she has such thoughts. She denied any suicidal or self-injurious behaviors. I did talk with her about the importance of medication compliance as she believes that medications made a gooddifference. Sleep and appetite are ok. Patient has continued to attend individual and group therapy and found them useful to understand their clinical symptoms well and also developed coping skills that were individualized for them and patient feels comfortable applying them when they return home. Appearance: dressed casually Mental Status: mental status grossly normal Mood: Euthymic mood Affect: Normal affect Speech and Movement: speech and movement normal and speech clear Attitude: cooperative Thought Process: normal Thought Content: Denied hallucinations, no homicidal thoughts and no suicidality Insight: fair Judgment: fair Impulse control: fair Mental status exam Exam Physical Exam Vital Signs: Temp Pulse Resp BP Pulse Ox O2 Del Method 97.6 F 72 22 132/72 96 Room Air 12/15/24 07:25 12/15/24 08:18 12/15/24 08:18 12/15/24 07:25 12/15/24 07:25 12/15/24 07:25 Narrative: Physical exam: Const: cooperative Nutritional Appearance: ABCD Orientation: alert, awake and oriented x3 HEENT: Head normal to inspection, hearing grossly normal bilaterally, external nose normal, face symmetric Eyes: appearance normal, both eyes and all related structures, sclerae normal Neck: normal visual inspection and full ROM Resp: normal respiratory effort, able to speak in complete sentences and symmetric chest movement Cardio: regular rate GI: normal to inspection and non-distended : deferred Skin: no rashes or lesions noted Neuro: CNI: Normal olfaction, CNII: Visual lares intact, CNIII,IV,: EOM intact, no nystagmus. Pupils equal, round, reactive to light and accommodation, CNV: Sensation intact to light touch, CNVII: Raises eyebrows, smile/frown, puff out cheeks symmetrically, CNVIII: Hearing intact bilaterally, CNIX,X: Voice normal, soft palate elevation normal, symmetrical, CNXI: Shoulder shrug strong, equal bilaterally, CNXII: Tongue protrusion midline, movement symmetrical. Extrem: normal to inspection and full ROM Assessment/Plan Assessment/Plan (1) Major depressive disorder, recurrent, moderate: Plan Patient presenting due to worsening anxiety -donepezil 10 mg HS -lipitor 40mg daily -fluticisone 2 spray daily -Ipratropium 0.5 mg QID -Losartan 50 mg PO BID -Remeron 7.5 mg QHS -Zonegran 50 mg BID -Potential discharge tomorrow. -Continue to monitor mental status -Monitor suicidal behaviors for safety of self (15-minute face check). -Encourage medication adherence. Risks, benefits, and alternatives of treatment explained -Recommend? attending groups and psychoeducation for building coping skills. -Risks, benefits and indications of medications were discussed with the patient.? -No abnormal movements noted on exam. AIMS is Zero. -Involve friends/family members to coordinate care and ensure appropriate outpatient appointments are scheduled prior to discharge. Documented By: Erik Kim MD [id number] Signed By: <Electronically signed by Erik Kim MD> 12/15/24 1052 <Electronically signed by DO MALICK Tee> 12/15/24 0943 [facility] Work Phone: 1(839) 917-628706-08-2025 [place] [address] Psychiatry Progress Note Signed Patient: Shey Obrien MR#: [id number] : 1950 Acct:[id number] Age/Sex: 74 / F Adm Date: 5 Loc: Room: [address] [place] [address] Type : ADM IN Attending Dr: Erik Kim MD Copies to: ~ Date of Service: 12/15/2024 Subjective Subjective Narrative: Ms. Obrien reported she is feeling much better today. She believes her medicine is working very well for her. She denies depressed mood, anxiety, suicidal ideation, homicidal ideation, and AVH. She reports good appetite and good sleep. She denies any side effect from medication. Overall, she feelslike she has much improved and is ready for discharge. All questions concerns were addressed with patient. Patient was personally seen by me on the day of the encounter. I reviewed the history and performedthe bowles elements of the assessment. I formulated the planof care and confirmed this with the resident as noted below The patient is currently functioning at her baseline. She is doing fairly well.She reports improvedmood and appetite, improved ability to enjoy certain activities, reduction of feelings of worthlessness or guilt, and improved focus and concentration. She continues to struggle with anxiety occasionally. She was outin the common area socializing and communicating with peers appropriately. As wearediscussing discharge plans, she described her current mental health as stable. She denied any suicidal thoughts. She is likely ready to be discharged tomorrow. She is tolerating her medications without difficulty. She denied current SI/HI and verbalized the intent to notify staff if she has such thoughts. She denied any suicidal or self-injurious behaviors.I did talk with her about the importance of medication compliance as she believes that medications made a gooddifference. Sleep and appetite are ok. Patient has continued to attend individual and group therapy and found them useful to understand their clinical symptoms well and also developed coping skills that were individualized for them and patient feels comfortable applying them when they return home. Appearance: dressed casually Mental Status: mental status grossly normal Mood: Euthymic mood Affect: Normal affect Speech and Movement: speech and movement normal and speech clear Attitude: cooperative Thought Process: normal Thought Content: Denied hallucinations, no homicidal thoughts and no suicidality Insight: fair Judgment: fair Impulse control: fair Mental status exam Exam Physical Exam Vital Signs: Temp Pulse Resp BP Pulse Ox O2 Del Method 97.6 F 72 22 132/72 96 Room Air 12/15/24 07:25 12/15/24 08:18 12/15/24 08:18 12/15/24 07:25 12/15/24 07:25 12/15/24 07:25 Narrative: Physical exam: Const: cooperative Nutritional Appearance: ABCD Orientation: alert, awake and oriented x3 HEENT: Head normal to inspection, hearing grossly normal bilaterally, external nose normal, face symmetric Eyes: appearance normal, both eyes and all related structures, sclerae normal Neck: normal visual inspection and full ROM Resp: normal respiratory effort, able to speak in complete sentences and symmetric chest movement Cardio: regular rate GI: normal to inspection and non-distended : deferred Skin: no rashes or lesions noted Neuro: CNI: Normal olfaction, CNII: Visual lares intact, CNIII,IV,: EOM intact, no nystagmus. Pupils equal, round, reactive to light and accommodation, CNV: Sensation intact to light touch, CNVII:Raises eyebrows, smile/frown, puff out cheeks symmetrically, CNVIII: Hearing intact bilaterally, CNIX,X: Voice normal, soft palate elevation normal, symmetrical, CNXI: Shoulder shrug strong, equal bilaterally, CNXII: Tongue protrusion midline, movement symmetrical. Extrem: normal to inspection and full ROM Assessment/Plan Assessment/Plan (1) Major depressive disorder, recurrent, moderate: Plan Patient presenting due to worsening anxiety -donepezil 10 mg HS -lipitor 40mg daily -fluticisone 2 spray daily -Ipratropium 0.5 mg QID -Losartan 50 mg PO BID -Remeron 7.5 mg QHS -Zonegran 50 mg BID -Potential discharge tomorrow. -Continue to monitor mental status -Monitor suicidal behaviors for safety of self (15-minute face check). -Encourage medication adherence. Risks, benefits, and alternatives of treatment explained -Recommend? attending groups and psychoeducation for building coping skills. -Risks, benefits and indications of medications were discussed with the patient.? -No abnormal movements noted on exam. AIMS is Zero. -Involve friends/family members to coordinate care and ensure appropriate outpatient appointments are scheduled prior to discharge. Documented By: Erik Kmi MD [id number] Signed By: 12/15/24 1052 12/15/24 0943 [facility]06-07-2025 Progress note Author Erik aguilar [facility] Note Date/Time December 14, 2024 2:23p m [facility] [address] [place] [address] Psychiatry Progress Note Signed Patient: Shey Obrien MR#: [id number] : 1950 Acct:[id number] Age/Sex: 74 / F Adm Date: 5 Loc: 1S Room: [address] [place] [address] Type : ADM IN Attending Dr: Erik Kim MD Copies to: ~ Date of Service: 12/14/2024 Subjective Subjective Narrative: Ms. Carias 74 year old female on day 2 of hospitalization for worsening depression and passive suicidial ideation. Today, pt presented as depressed. The patient states she is doing better than yesterday. She rates anxiety and depression as 3/10. She has been attending group. Denies SE of medications today. Denies SI/HI. Still not sleeping well. Patient was personally seen by me on the day of the encounter. I reviewed the history and performed the bowles elements of the assessment. I formulated the planof care and confirmed this with the medical student as noted below MSE Appearance: grossly normal. Fair grooming and hygiene, calm, cooperative, engaged in the interview. Good eye contact. Normal psychomotor activity. Mental Status: mental status grossly normal Mood: depressed / anxious mood, euthymic / dysthymic, or subjective Affect: dysphoric / constricted / reactive / mood-congruent affect Speech and Movement: speech and movement normal / slow / rapid and speech clear / slurred / garbled. Regular rate, rhythm, volume, and tone. Non pressured. Attitude: cooperative Thought Process: normal / thought-blocking present/ slowed / disorganized / tangential / delusional / linear, logical, and goal-oriented Thought Content: Reports / Denies paranoid or delusional thoughts. Denied hallucinations, no homicidality and no suicidality. Does not appear to be responding to internal stimuli. Insight: limited , emerging Judgment: limited Exam Physical Exam Vital Signs: Temp Pulse Resp BP Pulse Ox O2 Del Method 97.8 F 72 20 170/101 H 97 Room Air 12/14/24 09:29 12/14/24 12:27 12/14/24 12:27 12/14/24 09:29 12/14/24 09:29 12/14/24 09:29 Assessment/Plan Assessment/Plan (1) Major depressive disorder, recurrent, moderate: Plan Patient presenting due to worsening anxiety -donepezil 10 mg HS -lipitor 40mg daily -fluticisone 2 spray daily -Ipratropium 0.5 mg QID -Losartan 50 mg PO BID -Remeron 7.5 mg QHS -Zonegran 50 mg BID -Continue to monitor mental status -Monitor suicidal behaviors for safety of self (15-minute face check). -Encourage medication adherence. Risks, benefits, and alternatives of treatment explained -Recommend? attending groups and psychoeducation for building coping skills. -Risks, benefits and indications of medications were discussed with the patient.? -No abnormal movements noted on exam. AIMS is Zero. -Involve friends/family members to coordinate care and ensure appropriate outpatient appointments are scheduled prior to discharge. Documented By: Erik Kim MD [id number] Signed By: <Electronically signed by Erik Kim MD> 12/14/24 9201 [facility] Work Phone: 1(949) 707-612306-07-2025 [place] [id number] Psych[place] Progress Note Signed Patient: Shey Obrien MR#: [id number] : 1950 Acct:[id number] Age/Sex: 74 / F Adm Date: 5 Loc: Room: [address] [place] [address] Type : ADM IN Attending Dr: Erik Kim MD Copies to: ~ Date of Service: 12/14/2024 Subjective Subjective Narrative: Ms. Carias 74 year old female on day 2 of hospitalization for worsening depression and passive suicidial ideation. Today, pt presented as depressed. The patient states she is doing better than yesterday. She rates anxiety and depression as 3/10. She has been attending group. Denies SE of medications today. DeniesSI/HI. Still not sleeping well. Patient was personally seen by me on the day of the encounter. I reviewed the history and performedthe bowles elements of the assessment. I formulated the planof care and confirmed this with the medical student as noted below MSE Appearance: grossly normal. Fair grooming and hygiene, calm, cooperative, engaged in the interview.Good eye contact. Normal psychomotor activity. Mental Status: mental status grossly normal Mood: depressed / anxious mood, euthymic / dysthymic, or subjective Affect: dysphoric / constricted / reactive / mood-congruent affect Speech and Movement: speech and movement normal / slow / rapid and speech clear / slurred / garbled. Regular rate, rhythm, volume, and tone. Non pressured. Attitude: cooperative Thought Process: normal / thought-blocking present/ slowed / disorganized / tangential / delusional/ linear, logical, and goal-oriented Thought Content: Reports / Denies paranoid or delusional thoughts. Denied hallucinations, no homicidality and no suicidality. Does not appear to be responding to internal stimuli. Insight: limited , emerging Judgment: limited Exam Physical Exam Vital Signs: Temp Pulse Resp BP Pulse Ox O2 Del Method 97.8 F 72 20 170/101 H 97 Room Air 12/14/24 09:29 12/14/24 12:27 12/14/24 12:27 12/14/24 09:29 12/14/24 09:29 12/14/24 09:29 Assessment/Plan Assessment/Plan (1) Major depressive disorder, recurrent, moderate: Plan Patient presenting due to worsening anxiety -donepezil 10 mg HS -lipitor 40mg daily -fluticisone 2 spray daily -Ipratropium 0.5 mg QID -Losartan 50 mg PO BID -Remeron 7.5 mg QHS -Zonegran 50 mg BID -Continue to monitor mental status -Monitor suicidal behaviors for safety of self (15-minute face check). -Encourage medication adherence. Risks, benefits, and alternatives of treatment explained -Recommend? attending groups and psychoeducation for building coping skills. -Risks, benefits and indications of medications were discussed with the patient.? -No abnormal movements noted on exam. AIMS is Zero. -Involve friends/family members to coordinate care and ensure appropriate outpatient appointments are scheduled prior to discharge. Documented By: Erik Kim MD [id number] Signed By: 12/14/24 1423 [facility]06-06-2025 History and physical note Author Erik aguilar [facility] Note Date/Time December 13, 2024 10:[address] [facility] [address] [place] [address] Psychiatry H&P Signed Patient: Shey Obrien MR#: [id number] : 1950 Acct:[id number] Age/Sex: 74 / F Adm Date: 5 Loc: 1S Room: [address] [place] [address] Type: ADM IN Attending Dr: Erik Kim MD Copies to: MD Latrell Romero MD~ Date of Service: 12/13/2024 HPI History of Present Illness History of present illness: Ms. Obrien is a 74 year old female with a reported history of anxiety who presents for inpatient admission due to Passive suicidal ideation and increased anxiety. Reportedly, She is a voluntary admission.Per report. she has been having increased anxiety. Denies SI or HI.Report's occasionally hearing her parents call her name. Denies visual hallucination's. Rates her anxiety/depression at a 3 on a 0-10 anxiety/depression scale.Report's racing thought's, waking up frequently. Report's financial issues. States that she lives with her niece and her boyfriend.Oriented to the unit, policies and procedures, patient right's. Will continue to monitor. Patient was personally seen by me on the day of the encounter. I reviewed the history and performed the bowles elements of the assessment. I formulated the planof care and confirmed this with the medical student as noted below At the time of the interview, pt presented as anxious. Patient reports that shehas been feeling overwhelmed as her house started leaking recently. She said shecalled the hotline and her friend was able to talk her off. She reports trying antidepressants in the past and sleeping has been poor. She does not feel that Ambien is helping. Pt reports a long-standing history of anxiety manifested as feeling like the weight of the world is on her shoulders. She states that recently things have been piling on and that she does not have the capability tocope with the stress. She states she has been lonley a very long time but by nature she is super loving. Recently, her house had a leak and this was what pushed her over the edge. She called a suicide hotline however she did not have any plan or intention. Shortly after she called, she spoke with a friend who attempted Suicide. The friend was able to calm her down. She reports hearing herparents call her name occasionally but this is exclusively at night after she has taken her medications and is about to sleep. Patient mentions she needs a baby aspirin on board as she normally takes one a day. Past psych history: Anxiety Past psych hospitalizations: none Past suicide attempts: Denies Family psych history: none Previous medications:unable to recall anxiety medications. Alcohol and drug use: Denies Living: According to chart review, pt has been living with niece and nieces boyfriend Employment: retired former [employer] worker in [employer] [facility] [employer] Relationships: close, supportive relationship with family in area. Mental Status Exam (MSE) Appearance: grossly normal. Fair grooming and hygiene, calm, cooperative, engaged in the interview. Good eye contact. Normal psychomotor activity. Mental Status: mental status grossly normal Mood: anxious mood Affect: dysphoric Speech and Movement: speech and movement normal . Regular rate, rhythm, volume, and tone. Non pressured. Attitude: cooperative Thought Process: normal / linear, logical, and goal-oriented Thought Content: Denies paranoid or delusional thoughts. reports occasional auditory hallucinations, no homicidality and positive passive suicidality. Does not appear to be responding to internal stimuli. Insight: fair Judgment: fair Patient's Strengths and Protective Factors: - Willing to comply, good physical health? with treatment during hospitalization Patient's Weaknesses and Risk Factors: - Emotional lability Attitude for Change: - Fair AIMS: no abnormal movements noted. Score is zero.? Review of Systems Constitutional: Pt denies fatigue, malaise. Neuro: Denies dizziness/lightheadedness. Denies TBI, seizure, memory loss. Denies numbness/tingling in extremities. Denies abnormal movements HEENT: Denies vision/hearing changes. Pulmonary: Denies SOB, dyspnea, cough, wheezing. Cardiac: Denies chest pain/pressure. Denies edema, palpitations. GI: Denies abdominal pain, heartburn, N/V. Denies constipation and diarrhea : Denies dysuria, hematuria, polyuria. Physical exam General: not in any acute distress Skin: intact HEENT: head atraumatic, face symmetrical. Pulm: Breathing normally without excessive effort Cardio: Regular rate and rhythm Abdomen: Normal inspection Musculoskeletal: Moves all extremities, normal strength all extremities. Neuro: Pt alert, oriented x3. Gait normal. CNI: Smell intact CNII: Visual lares intact CNIII,IV,: EOM intact, no nystagmus. CNV: Sensation intact to light touch. CNVII: Raises eyebrows, smile/frown, puff out cheeks symmetrically. CNVIII: Hearing intact bilaterally. CNIX,X: Voice normal, soft palate elevation normal, symmetrical. CNXI: Shoulder shrug strong, equal bilaterally. CNXII: Tongue protrusion midline [facility] Medical History (Updated 12/13/24 @ 10:06 by Erik Kim MD) Former smoker Hypertension COPD (chronic obstructive pulmonary disease) COPD (chronic obstructive pulmonary disease) Sleep apnea Sleep apnea Surgical History (Updated 12/12/24 @ 19:08 by Nichelle Mckoy RN) History of oral surgery History of hernia repair Social History Smoking Status: Former smoker Tobacco Type: cigarettes Substance Use Type: None Social History Comments: Lives with niece and her boyfriend Meds Medications and Allergies Allergies No Known Allergies Allergy (Verified 12/12/24 18:53) Home Medications atorvastatin 40 mg tablet 40 mg PO DAILY 12/12/24 [History Confirmed 12/12/24] donepezil 10 mg tablet 10 mg PO HS 12/12/24 [History Confirmed 12/12/24] fluticasone propionate 50 mcg/actuation nasal spray,suspension 2 spray intranasal DAILY 12/12/24 [History Confirmed 12/12/24] losartan 50 mg tablet 50 mg PO BID 12/12/24 [History Confirmed 12/12/24] methocarbamol 750 mg tablet 750 mg PO QID PRN pain 12/12/24 [History Confirmed 12/12/24] tiotropium bromide 18 mcg capsule with inhalation device (Spiriva with HandiHaler) 1 cap inhalation DAILY 12/12/24 [History Confirmed 12/12/24] zolpidem 10 mg tablet 10 mg PO HS PRN sleep 12/12/24 [History Confirmed 12/12/24] zonisamide 50 mg capsule 50 mg PO BID 12/12/24 [History Confirmed 12/12/24] Exam Physical Exam Vital Signs: Temp Pulse Resp BP Pulse Ox O2 Del Method 97.8 F 77 18 138/82 98 Room Air 12/12/24 19:03 12/12/24 19:03 12/12/24 19:03 12/12/24 19:03 12/12/24 19:03 12/12/24 19:09 Assessment/Plan (1) Major depressive disorder, recurrent, moderate: Plan Admit to for management of depression and to ensure safety of self due to SI. Patient presenting due to worsening anxiety -donepezil 10 mg HS -Ipratropium 0.5 mg QID -Losartan 50 mg PO BID -Remeron 7.5 mg QHS -Zonegran 50 mg BID -Continue to monitor mental status -Monitor suicidal behaviors for safety of self (15-minute face check). -Encourage medication adherence. Risks, benefits, and alternatives of treatment explained -Recommend? attending groups and psychoeducation for building coping skills. -Risks, benefits and indications of medications were discussed with the patient.? -No abnormal movements noted on exam. AIMS is Zero. -Involve friends/family members to coordinate care and ensure appropriate outpatient appointments are scheduled prior to discharge. Documented By: Erik Kim MD [id number] Signed By: <Electronically signed by Erik Kim MD> 12/13/[address] [place] [address] Work Phone: 1(316) 783-808506-06-2025 [place] [address] Psychiatry H&P Signed Patient: Shey Obrien MR#: [id number] : 1950 Acct:[id number] Age/Sex: 74 / F Adm Date: 5 Loc: Room: [address] [place] [address] Type: ADM IN Attending Dr: Erik Kim MD Copies to: MD Latrell Romero MD~ Date of Service: 12/13/2024 HPI History of Present Illness History of present illness: Ms. Obrien is a 74 year old female with a reported history of anxiety who presents for inpatient admission due to Passive suicidal ideation and increased anxiety. Reportedly, She is a voluntary admission.Per report. she has been having increased anxiety. Denies SI or HI.Report's occasionally hearing her parents call her name. Denies visual hallucination's. Rates her anxiety/depression at a 3 on a 0-10 anxiety/depression scale.Report's racing thought's, waking up frequently. Report'sfinancial issues. States that she lives with her niece and her boyfriend.Oriented to the unit, policies and procedures, patient right's. Will continue to monitor. Patient was personally seen by me on the day of the encounter. I reviewed the history and performedthe bowles elements of the assessment. I formulated the planof care and confirmed this with the medical student as noted below At the time of the interview, pt presented as anxious. Patient reports that shehas been feeling overwhelmed as her house started leaking recently. She said shecalled the hotline and her friend was able to talk her off. She reports trying antidepressants in the past and sleeping has been poor. She does not feel that Ambien is helping. Pt reports a long-standing history of anxiety manifested as feeling like the weight of the world is on her shoulders. She states that recently things have been piling on and that she does not have the capability tocope with the stress. She states she has been lonley a very long time but by nature she is super loving. Recently, her house had a leak and this was what pushed her over the edge. She called a suicide hotline however she did not have any plan or intention. Shortly after she called, she spoke with a friend who attempted Suicide. The friend was ableto calm her down. She reports hearing herparents call her name occasionally but this is exclusivelyat night after she has taken her medications and is about to sleep. Patient mentions she needs a baby aspirin on board as she normally takes one a day. Past psych history: Anxiety Past psych hospitalizations: none Past suicide attempts: Denies Family psych history: none Previous medications:unable to recall anxiety medications. Alcohol and drug use: Denies Living: According to chart review, pt has been living with niece and nieces boyfriend Employment: retired former [employer] worker in [facility] [employer] Relationships: close, supportive relationship with family in area. Mental Status Exam (MSE) Appearance: grossly normal. Fair grooming and hygiene, calm, cooperative, engaged in the interview.Good eye contact. Normal psychomotor activity. Mental Status: mental status grossly normal Mood: anxious mood Affect: dysphoric Speech and Movement: speech and movement normal . Regular rate, rhythm, volume, and tone. Non pressured. Attitude: cooperative Thought Process: normal / linear, logical, and goal-oriented Thought Content: Denies paranoid or delusional thoughts. reports occasional auditory hallucinations, no homicidality and positive passive suicidality. Does not appear to be responding to internal stimuli. Insight: fair Judgment: fair Patient's Strengths and Protective Factors: - Willing to comply, good physical health? with treatment during hospitalization Patient's Weaknesses and Risk Factors: - Emotional lability Attitude for Change: - Fair AIMS: no abnormal movements noted. Score is zero.? Review of Systems Constitutional: Pt denies fatigue, malaise. Neuro: Denies dizziness/lightheadedness. Denies TBI, seizure, memory loss. Denies numbness/tinglingin extremities. Denies abnormal movements HEENT: Denies vision/hearing changes. Pulmonary: Denies SOB, dyspnea, cough, wheezing. Cardiac: Denies chest pain/pressure. Denies edema, palpitations. GI: Denies abdominal pain, heartburn, N/V. Denies constipation and diarrhea : Denies dysuria, hematuria, polyuria. Physical exam General: not in any acute distress Skin: intact HEENT: head atraumatic, face symmetrical. Pulm: Breathing normally without excessive effort Cardio: Regular rate and rhythm Abdomen: Normal inspection Musculoskeletal: Moves all extremities, normal strength all extremities. Neuro: Pt alert, oriented x3. Gait normal. CNI: Smell intact CNII: Visual lares intact CNIII,IV,: EOM intact, no nystagmus. CNV: Sensation intact to light touch. CNVII: Raises eyebrows, smile/frown, puff out cheeks symmetrically. CNVIII: Hearing intact bilaterally. CNIX,X: Voice normal, soft palate elevation normal, symmetrical. CNXI: Shoulder shrug strong, equal bilaterally. CNXII: Tongue protrusion midline [facility] Medical History (Updated 12/13/24 @ 10:06 by Erik Kim MD) Former smoker Hypertension COPD (chronic obstructive pulmonary disease) COPD (chronic obstructive pulmonary disease) Sleep apnea Sleep apnea Surgical History (Updated 12/12/24 @ 19:08 by Nichelle Mckoy RN) History of oral surgery History of hernia repair Social History Smoking Status: Former smoker Tobacco Type: cigarettes Substance Use Type: None Social History Comments: Lives with niece and her boyfriend Meds Medications and Allergies Allergies No Known Allergies Allergy (Verified 12/12/24 18:53) Home Medications atorvastatin 40 mg tablet 40 mg PO DAILY 12/12/24 [History Confirmed 12/12/24] donepezil 10 mg tablet 10 mg PO HS 12/12/24 [History Confirmed 12/12/24] fluticasone propionate 50 mcg/actuation nasal spray,suspension 2 spray intranasal DAILY 12/12/24 [History Confirmed 12/12/24] losartan 50 mg tablet 50 mg PO BID 12/12/24 [History Confirmed 12/12/24] methocarbamol 750 mg tablet 750 mg PO QID PRN pain 12/12/24 [History Confirmed 12/12/24] tiotropium bromide 18 mcg capsule with inhalation device (Spiriva with HandiHaler) 1 cap inhalationDAILY 12/12/24 [History Confirmed 12/12/24] zolpidem 10 mg tablet 10 mg PO HS PRN sleep 12/12/24 [History Confirmed 12/12/24] zonisamide 50 mg capsule 50 mg PO BID 12/12/24 [History Confirmed 12/12/24] Exam Physical Exam Vital Signs: Temp Pulse Resp BP Pulse Ox O2 Del Method 97.8 F 77 18 138/82 98 Room Air 12/12/24 19:03 12/12/24 19:03 12/12/24 19:03 12/12/24 19:03 12/12/24 19:03 12/12/24 19:09 Assessment/Plan (1) Major depressive disorder, recurrent, moderate: Plan Admit to for management of depression and to ensure safety of self due to SI. Patient presenting due to worsening anxiety -donepezil 10 mg HS -Ipratropium 0.5 mg QID -Losartan 50 mg PO BID -Remeron 7.5 mg QHS -Zonegran 50 mg BID -Continue to monitor mental status -Monitor suicidal behaviors for safety of self (15-minute face check). -Encourage medication adherence. Risks, benefits, and alternatives of treatment explained -Recommend? attending groups and psychoeducation for building coping skills. -Risks, benefits and indications of medications were discussed with the patient.? -No abnormal movements noted on exam. AIMS is Zero. -Involve friends/family members to coordinate care and ensure appropriate outpatient appointments are scheduled prior to discharge. Documented By: Erik Kim MD 5 [id number] Signed By: 12/13/24 1006 [facility]06-05-2025 Chief complaint+Reason for visit Narrative* Chief Complaint Admit Date Mental Evaluation. December 12, 2024 6:22p m Mental Evaluation. December 13, 2024 8:41a m Reason for Visit Admit Date Major depressive disorder, recurrent, mo derate December 12, 2024 6:22pm [facility] Work Phone: [phone]) [phone] Evaluation note* Diagnosis Onset Date Resolution Status Admit Date Major depressive disorder, recurrent, moderate acute December 12 6:22pm [facility] Work Phone: 1(324) 394-844406-05-2025 Evaluation + Plan noteExtracted from: Title:ED Note Author:Elmer Kohli DO Date: Suicidal ideation (R45.851: Suicidal ideations) Orders: CBC w/ Auto Diff Communication Order Comprehensive Metabolic Panel Consult to Mental Health Drug Screen Urine ECG 12 Lead Adult eGFR Ethanol Level UA with Cult Rflx Urine Culture Diagnostic Tests Pending * Urine Culture 12/12/24 [facility] 05-28-2025 History of Present illness Narrative* Latrell Jack MD - 12/04/2024 2:25 PM EDTAssociated Problem(s): Degenerative lumbar spinal stenosis Recent flare and increased pain. Treat with prednisone. Use robaxin for spasms and norco PRN. Follow up with pain management next week as scheduled. * Latrell Jack MD - 12/04/2024 2:24 PM EDTAssociated Problem(s): COPD (chronic obstructive pulmonary disease) ([facility]) SOB stable and continue albuterol nebulized PRN. Script for new machine to patient. * Latrell Jack MD - 12/04/2024 1:30 PM EDT Images from the original note were not included. Subjective Patient ID: Shey Obrien is a 74 y.o. female who presents [...] or down legs. Constant pain since and worsewith sitting, bending, or lifting. Hard to walk [...] This Visit COPD (chronic obstructive pulmonary disease) (CMS/HCC) SOB stable and continue albuterol nebulized PRN. Script for new machine to patient. Degenerative lumbar spinal stenosis - Primary Recent flare and increased pain. Treat with prednisone. Use robaxin for spasms and norco PRN. Follow up with pain management next week as scheduled. Relevant Medications methocarbamol (Robaxin) 750 MG tablet predniSONE (Deltasone) 50 MG tablet HYDROcodone-acetaminophen ([place]) 5-325 MG tablet documented in this encounterCapital Region Medical [id number] History of Present illness Narrative* Latrell Jack MD - 08/27/2024 11:05 AM ESTAssociated Problem(s): 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CMS/[facility]) Follow with neurology. * Latrell Jack MD - 08/27/2024 11:04 AM ESTAssociated Problem(s): Medicare annual wellness visit, subsequent Due for labs. Discussed proper diet and regular aerobic exercise. Need aerobic exercise 5-6 days a week for 30 minutes at a time. Smaller portions and limit total calories. Colonoscopy every 10 years. Tetanus every 10 years. Advised not to smoke. Discussed daily Aspirin therapy. * Latrell Jack MD - 08/27/2024 11:03 AM ESTAssociated Problem(s): Essential hypertension, benign (CMS/HCC) BP controlled and monitor PRN. * Latrell Jack MD - 08/27/2024 11:03 AM ESTAssociated Problem(s): COPD (chronic obstructive pulmonary disease) ([facility]) Symptoms stable and continue spiriva. Use albuterol PRN. * Latrell Jack MD - 08/27/2024 11:03 AM ESTAssociated Problem(s): Class 2 severe obesity due to excess calories with serious comorbidity and body mass index (BMI) of 36.0 to 36.9 in adult ([facility]) Weight loss indicated. * Latrell Jack MD - 08/27/2024 10:15 AM EST Images from the original note were not included. Subjective Patient ID: Shey Obrien is a 73 y.o. female who presents for Medicare Annual Wellness Visit Subsequent (wellness). Presents for medicare annual wellness visit. Patient feels well today. Weight down 24 pounds in thepast year. Patient had paraesophageal hernia surgery 07/24 [...] Items Addressed This Visit Essential hypertension, benign ([facility]) BP controlled and monitor PRN. Relevant Orders Basic metabolic panel COPD (chronic obstructive pulmonary disease) ([facility]) Symptoms stable and continue spiriva. Use albuterol PRN. Dyslipidemia ([facility]) Relevant Orders Lipid panel Encounter for long-term (current) use of medications Relevant Orders CBC and differential Hepatic function panel Prediabetes Relevant Orders Hemoglobin A1c Class 2 severe obesity due to excess calories with serious comorbidity and body mass index (BMI) of36.0 to 36.9 in adult ([facility]) Weight loss indicated. Relevant Orders TSH Medicare annual wellness visit, subsequent - Primary Due for labs. Discussed proper diet and regular aerobic exercise. Need aerobic exercise 5-6 days a week for 30 minutes at a time. Smaller portions and limit total calories. Colonoscopy every 10 years. Tetanus every 10 years. Advised not to smoke. Discussed daily Aspirin therapy. documented in this encounterCapital Region Medical [id number] NoteHNO ID: [id number] Author: KATARZYNA SNYDER APRN.COMMERCIAL LINES ACCOUNT ASSISTANT Service: ? Author Type: Nurse Practitioner Type: Progress Notes Filed: 08/07/2024 15:37 Note Text: [facility] Clinic Date: August [...] completed prior to appointment Katarzyna Snyder, MSN, COMMERCIAL LINES ACCOUNT ASSISTANT [facility] 07[facility] History of Present illness Narrative* Katarzyna Snyder, LISSETTE.SKYLA - 08/07/2024 2:14 PM EST [facility] Clinic Date: August [...] completed prior to appointment Katarzyna Snyder, MSN, COMMERCIAL LINES ACCOUNT ASSISTANT August 07, 2024 * Olga Lidia Blake MA - 08/07/2024 2:04 PM EST What is the reason for your visit today? Post op Who is your referring physician? Dr. Snyder Are you having poor oral intake? NO Have you had unintentional weight loss of 15 lbs/7 Kg in the last 3-6 months? NO Bowels: constipated, diarrhea, or regular Wound: clean & dry Temperature: No Drains: No documented in [facility] NoteHNO ID: [id number] Author: OLGA LIDIA BLAKE MA Service: ? Author Type: Disciplinary Hearing Officer Type: Progress Notes Filed: 08/07/2024 15:37 Note Text: What is the reason for your visit today? Post op Who is your referring physician? Dr. Miles Are you having poor oral intake? NO Have you had unintentional weight loss of 15 lbs/7 Kg in the last 3-6 months? NO Bowels: constipated, diarrhea, or regular Wound: clean AND dry Temperature: No Drains: [facility]01-22-2025 Telephone encounter Note* Telephone Encounter - Latrell Jack MD - 07/31/2024 2:25 PM EST Sent to [facility]. [facility] [id number] Miscellaneous Notes* Telephone Encounter - Latrell Jack MD - 07/31/2024 2:25 PM EST Sent to [facility]. * Telephone Encounter - GEO DICK - 07/31/2024 2:20 PM EST Insurance won't cover the extended release ambien. * Telephone Encounter - Sandra Matias - 07/31/2024 1:13 PM EST Patient called and stated that her zolpidem refill was denied. She would like you to call her or the pharmacy. an documented in this encounterCapital Region Medical [id number] Telephone encounter Note* Telephone Encounter - GEO DICK - 07/31/2024 2:20 PM EST Insurance won't cover the extended release ambien. [facility] [id number] Telephone encounter Note* Telephone Encounter - Sandra Matias - 07/31/2024 1:13 PM EST Patient called and stated that her zolpidem refill was denied. She would like you to call her or the pharmacy. an [facility] [id number] NoteHNO ID: [id number] Author: DERREK MARSHALL RN Service: Care Management [...] Obrien DATE: July 26, 2024 TIME: 9:22 [facility]01-16-2025 NoteHNO ID: [id number] Author: DERREK MARSHALL RN Service: Care Management Author Type: Registered Nurse Type: Gomez Mgt Initial Assessment Filed: 07/25/2024 14:30 Note Text: CARE MANAGEMENT: ASSESSMENT AND DISCHARGE PLAN SERVICE DATE: July 25, 2024 SERVICE TIME: 2:29 PM PCP: Latrell Jack MD Primary Contact: Extended Emergency Contact Information Primary Emergency Contact: Alexandria Cramer Address: [address] [place] [address] Relation: Relative Admission Status: Inpatient Insurance Provider: MEDICARE A AND B Discharge Planning requested by: Per Department Practice Potential Transition Plans To Be Determined Advance Directives Current Advance Directive: None Adhesion Tester Attempted to Assist with AD Completion: Yes Action: Education Provided [place] of Choice Explained: [place] of Choice Given: No Reason Not Given: [...] Obrien DATE: July 25, 2024 TIME: 2:29 [facility]01-16-2025 NoteHNO ID: [id number] Author: DERREK MARSHALL RN Service: Care Management Author Type: Registered Nurse Type: Care Mgt Progress Note Filed: 07/25/2024 14:28 Note Text: CARE MANAGEMENT: ASSESSMENT AND DISCHARGE PLAN SERVICE DATE: July 25, 2024 SERVICE TIME: 2:28 PM PCP: Latrell Jack MD Primary Contact: Extended Emergency Contact Information Primary Emergency Contact: Alexandria Cramer Address: [address] [place] [address] Relation: Relative Admission Status: Inpatient Insurance Provider: MEDICARE A AND B Discharge Planning requested by: Per Department Practice Potential Transition Plans To Be Determined Advance Directives Current Advance Directive: None Adhesion Tester Attempted to Assist with AD Completion: Yes Action: Education Provided [place] of Choice Explained: [place] of Choice Given: No Reason Not Given: [...] Shey Obrien DATE: July 25, 2024 TIME: 2:27 [facility]01-16-2025 NoteHNO ID: [id number] Author: YAN MOSER, ? Service: General Surgery [...] HERNIA W/O FUNDOPLASTY W/ MESH - [facility]01-15-2025 NoteHNO ID: [id number] Author: NENA SEPULVEDA MD Service: General Surgery [...] MD SERVICE DATE: 07/24/24 SERVICE TIME: 7:09 [facility]01-15-2025 NoteHNO ID: [id number] Author: TRIP GRAY RN Service: Nursing Author Type: Registered Nurse Type: Progress Notes Filed: 07/24/2024 18:55 Note Text: 1985 Paged [id number] to notify that patient came up from PACU with a rdz in but no active rdz order. Requesting order to be placed.[facility] 07-24-2024 NoteHNO ID: [id number] Author: TRIP GRAY RN Service: Nursing Author Type: Registered Nurse Type: Progress Notes Filed: 07/24/2024 18:25 Note Text: Admission/Transfer Note PATIENT NAME: Shey Obrien Patient Location: [place] [address] Room: [place] [address] Patient admitted from PACU via bed in stable condition. Actions taken: Patient oriented to room, call light function, prescribed activities, Patient rights, and Quiet at night. Patient belongings with patient. This note was completed by: Trip [facility]Ohio[facility] 07-24-2024 NoteHNO ID: [id number] Author: BETTY ALLEN APRN.FILTER TENDER Service: ? Author Type: Nurse 411 Directory Assistance Operator Type: Anesthesia Procedure Notes Filed: 07/24/2024 11:23 Note Text: ANESTHESIOLOGY PROCEDURE NOTE Airway General Information Procedure Start Time/Medication Administration: 07/24/2024 11:09 AM Procedure End Time: 07/24/2024 11:09 AM Patient location during procedure: OR Timeout Performed Pre-procedure: timeout performed Consent Obtained: Yes Patient identity confirmed: arm band, care guest service team leader and patient Staffing FILTER TENDER: Betty Allen APRN.FILTER TENDER Performed by: FILTER TENDER Indications and Patient Condition Indications for airway [...] July 24, 2024 TIME: 11:23 AM CSN: [id number] [facility]01-15-2025 NoteHNO ID: [id number] Author: BETTY ALLEN APRN.FILTER TENDER Service: ? Author Type: Nurse 411 Directory Assistance Operator Type: Anesthesia Procedure Notes Filed: 07/24/2024 11:23 Note Text: ANESTHESIOLOGY PROCEDURE NOTE PIV General Information Procedure Start Time/Medication Administration: 07/24/2024 11:11 AM Procedure End Time: 07/24/2024 11:11 AM Patient Location: OR Staffing FILTER TENDER: Betty Allen APRN.FILTER TENDER Performed by: FILTER TENDER Preparation Sterility Preparation: hand hygiene performed prior to procedure, surgical cap used, mask used, skin prep agent completely dried prior to procedure Site Prep: alcohol Procedure Details Indication: need for IV access Needle Size/Type: 18 gauge angiocath Orientation: Left Location: Hand Imaging Guidance Used: No SIGNATURE: Betty Allen APRN.CRNA PATIENT NAME: Shey Obrien DATE: July 24, 2024 TIME: 11:22 AM CSN: [id number] [facility]Point [facility]01-15-2025 NoteHNO ID: [id number] Author: ABDELRAHMAN HE MD Service: General Surgery Author Type: Resident Type: Plan of Care Filed: 07/24/2024 10:30 Note Text: Patient consented for study? Yes STUDY TITLE: MVP Trial: Mesh Vs Pledgets for repair of paraesophageal hernia repair: a randomized, blinded, parallel group trial IRB NO.: #[id number] CLEARANCE CENTER MANAGER: Willard Ramirez MD COORDINATOR/Research Nurse/Snow Technician: Abdelrahman He MD Phone/email: [phone], [email or web address] Consenting was performed in person prior [...] CRITERIA Yes No 1. The patient lacks Anguillan language fluency or cannot understand the consent form/study procedures [] [x] 2. The patient is [] [x] 3. The patient has a BMI >45 [] [x] 4. The patient has undergone previous hiatal hernia repair [] [x] 5. The patient will undergo paraesophageal hernia repair with a concurrent bariatric procedure to reduce stomach volume [] [x][facility] 07-23-20[facility] History of Present illness Narrative* Humera Posey, RT(R) - 07/23/2024 2:10 PM EST Radiology Service Progress Note PATIENT NAME: Shey Obrien DATE OF SERVICE: July 23, 2024 TIME: 1:59 PM PATIENT IDENTITY VERIFICATION COMPLETED USING TWO (2) IDENTIFIERS: Name and Date of confirmedby patient verbally. FALL SCREENING: Has the patient had 2 falls in the last year or 1 fall with injury or currently using an Ambulatory Assistive Device (Walker, Cane, Wheelchair, Crutches, etc.)? No PATIENT GENDER DATA: Assigned female at . status: : No status:NO. PATIENT RELEVANT IMPLANT DATA REVIEWED: Not Applicable PATIENT PRESENTS WITH AN IMPLANTABLE OR ATTACHED OPERATING THEATRE TECHNICIAN: No RADIOLOGY DEPARTMENT: General X-ray: Exam(s) Completed: Chest X-Ray PERIPHERAL IV DATA: Not applicable SIGNED BY: RT Liu(Ortega) July 23, 2024 1:59 PM documented in this encounterMer[facility]-14-[facility]25 NoteHNO ID: [id number] Author: HUMERA POSEY RT(R) Service: Radiology Author Type: Technologist Type: Progress [...] PATIENT PRESENTS WITH AN IMPLANTABLE OR ATTACHED OPERATING THEATRE TECHNICIAN: No RADIOLOGY DEPARTMENT: General X-ray: Exam(s) Completed: Chest X-Ray PERIPHERAL IV DATA: Not applicable SIGNED BY: RT Liu(Ortega) July 23, 2024 1:59 PMCLakeHealth [facility]Point [facility] Center01-14-2025 Instructions* Patient Instructions* aJmil Delacruz PA-C - 07/23/2024 1:27 PM EST Images from the original note were not included. [facility] PATIENT PREOPERATIVE INSTRUCTIONS Dr. Boyd has scheduled you for your procedure at this surgery center: [facility] [place] Scheduling Office: [phone] --[address] [place] [address]. Please read below carefully for your personalized [...] office. If you are currently using a culu-wzr-aamq injectable or oral medication for diabetes or weight loss such as Dulaglutide (Trulicity), Exenatide (Byetta, Bydureon), Liraglutide (Victoza, Saxenda), Semaglutide (Ozempic, Wegovy, Rybelsus), or Tirzepatide (Mounjaro), the medicine should be stopped at least 7 days before surgery. These medicines can cause food to remain in your stomach for a very longtime and increase the risks from surgery and [...] Procedures: - YOU MUST HAVE A RESPONSIBLE VISUAL MERCHANDISING ASSISTANT TAKE YOU HOME. A FOREIGN BANKNOTE TELLER OR PORTABLE IRRIGATION OPERATOR CANNOT BE MADE A RESPONSIBLE VISUAL MERCHANDISING ASSISTANT. - We recommend that a responsible person stays with you overnight to take care of you. - You cannot stay in a hotel alone after outpatient surgery. You will not be permitted to have yoursurgery, if you do not have someone to [...] call the Monday before. Your surgeon s patient scheduler will tell you what time to call the office. - If you have not reached the departmental patient scheduler by 5 P.M., call [phone] after 5 P.M. the day before your surgery. Please be aware that emergency situations arise, which may delay or change your surgical time. If this happens, we will notify you as soon as possible and regret any inconvenience. If you already have an Advance Directive, please fax a copy to [phone] or email to for it to be added to your chart. If you do not have an Advance Directive, you can find the appropriate form and more information at [email or web address]. We recommend that youcomplete the Advance Directive form found on the website and bring it with you the day of your surgery. It can be witnessed and scanned into your chart that day. Jamil Delacruz PA-C documented in this encounterMercy [facility]. [facility]01-14-2025 History and physical note * Jamil Delacruz PA-C - 07/23/2024 1:07 PM EST Images from the original note [...] COVID-19 Immunization Status Overdue - Covid-19 Vaccine (2023- season) Overdue since 03/10/2024 03/27/2023 Imm Admin: COVID-19 vaccine, age 12+ yr (PFIZER-BIONTECH COMIRNATY) 05/03/2022 Imm Admin: COVID-19 vaccine, age 12+ yr, bivalent ([employer]-BIONTECH) 04/12/2021 Imm Admin: COVID-19 original vaccine, age 12+ yr, monovalent ([employer] - PURPLE TOP) Only the first 3 [...] pain, CHF, congenital heart defect, DVT/PE, recent AL and murmur/valvular heart disease. GI: See HPI. Positive for: dysphagia (solid foods), GERD and heartburn Negative for: abdominal pain, hepatitis, liver disease, nausea and vomiting. : Negative for: on dialysis, dysuria, hematuria, nephrolithiasis and renal failure. Endocrine: Negative for: diabetes mellitus, hyperthyroidism, hypothyroidism and steroid for chronic problem. Hematology: Positive for: chronic anti-coagulation/platelet meds. Patient is on anti- coagulation/platelet medication(s): Aspirin. Negative for: anemia, factor V [...] QTC Calculation (Bazett) 423 Calculated P [place] 32 Calculated R [place] 14 Calculated T [place] 54 Impression NORMAL SINUS RHYTHM NORMAL ECG No results found for this or any previous visit (from the past 52099 hour(s)). Instructions Given to Patient: Instructions located in the after visit summary. Patient given verbal and written preop instructions and voices comprehension and compliance. SIGNATURE: Jamil Delacruz PA-C PATIENT NAME: Shey Obrien DATE: July 23, 2024 TIME: 1:07 PM PAGER/CONTACT #: [facility]01-14-[facility]25 History and physical note* Jamil Delacruz PA-C - 07/23/2024 1:07 PM EST Images from the original note [...] COVID-19 original vaccine, age 12+ yr, monovalent (PFIZER- BIONTECH - PURPLE TOP) Only the first 3 [...] pain, CHF, congenital heart defect, DVT/PE, recent AL and murmur/valvular heart disease. GI: See HPI. Positive for: dysphagia (solid foods), GERD and heartburn Negative for: abdominal pain, hepatitis, liver disease, nausea and vomiting. : Negative for: on dialysis, dysuria, hematuria, nephrolithiasis and renal failure. Endocrine: Negative for: diabetes mellitus, hyperthyroidism, hypothyroidism and steroid for chronic problem. Hematology: Positive for: chronic anti-coagulation/platelet meds. Patient is on anti- coagulation/platelet medication(s): Aspirin. Negative for: anemia, factor V [...] QTC Calculation (Bazett) 423 Calculated P [place] 32 Calculated R [place] 14 Calculated T [place] 54 Impression NORMAL SINUS RHYTHM NORMAL ECG No results found for this or any previous visit (from the past 03887 hour(s)). Instructions Given to Patient: Instructions located in the after visit summary. Patient given verbal and written preop instructions and voices comprehension and compliance. SIGNATURE: Jamil Delacruz PA-C PATIENT NAME: Shey Obrien DATE: July 23, 2024 TIME: 1:07 PM PAGER/CONTACT #: documented in this encounterMercy Health St. [facility]12-23-2024 Telephone encounter Note * Telephone Encounter - Trip Lieberman MA - 07/01/2024 1:22 PM EST Sending this to Dr Jack [facility] [id number] Miscellaneous Notes* Telephone Encounter - Trip Lieberman MA - 07/01/2024 1:22 PM EST Sending this to Dr Jack * Telephone Encounter - Sandra Arcos NP - 06/29/2024 11:46 AM EST Did we call Dr. Jack's office and let him know that we took over the Aricept. If not can we please. I do not see it documented. Thank you documented in this encounterCapital Region Medical CenterKmyeqsxukz30-25-6288 Telephone encounter Note* Telephone Encounter - Sandra Arcos NP - 06/29/2024 11:46 AM EST Did we call Dr. Jack's office and let him know that we took over the Aricept. If not can we please. I do not see it documented. Thank you [facility] CenterPgxptxcabz46-89-2097 Telephone encounter Note* Telephone Encounter - Cassy Donnelly - 06/13/2024 11:39 AM EST Patient would like her Losartan 50 mg and Pantoprazole 40 mg changed to [facility] CenterTvzsoczulo04-89-2096 Miscellaneous Notes* Telephone Encounter - Cassy Donnelly - 06/13/2024 11:39 AM EST Patient would like her Losartan 50 mg and Pantoprazole 40 mg changed to [facility] [place] documented in this [facility]11-06-2024 History of Present illness Narrative* Latrell Jack MD - 05/15/2024 10:35 AM ESTAssociated Problem(s): Primary osteoarthritis of both knees Pain stable and use OTC PRN. * Latrell Jack MD - 05/15/2024 10:35 AM ESTAssociated Problem(s): Primary insomnia Sleeping well with ambien and continue. * Latrell Jack MD - 05/15/2024 10:35 AM ESTAssociated Problem(s): EDWIN (obstructive sleep apnea) Sleeping well with CPAP and continue nightly. The patient is benefiting from PAP therapy. * Latrell Jack MD - 05/15/2024 10:34 AM ESTAssociated Problem(s): Hiatal hernia with gastroesophageal reflux disease without esophagitis GERD controlled but still problems swallowing. Scheduled for surgery 07/24. * Latrell Jack MD - 05/15/2024 10:34 AM ESTAssociated Problem(s): Essential hypertension, benign (CMS/HCC) BP improved but still elevated and increase losartan. Continue to monitor PRN. * Latrell Jack MD - 05/15/2024 10:33 AM ESTAssociated Problem(s): COPD (chronic obstructive pulmonary disease) (CMS/HCC) Symptoms stable and continue spiriva. Use albuterol PRN. * Latrell Jack MD - 05/15/2024 10:33 AM ESTAssociated Problem(s): Class 2 severe obesity due to excess calories with serious comorbidity and body mass index (BMI) of 38.0 to 38.9 in adult ([facility]) Weight loss indicated. * Latrell Jack MD - 05/15/2024 10:00 AM EST Images from the original note were not included. Subjective Patient ID: Shey Obrien is a 73 y.o. female who presents for Follow-up (3 m). Follow up HTN, COPD, insomnia, OA knees, GERD, and EDIWN. Checking BP PRN and improved but still [...] serious comorbidity and body mass index (BMI) of38.0 to 38.9 in adult (CMS/HCC) Weight loss indicated. documented in this encounterCapital Region Medical [id number] NoteHNO ID: [id number] Author: XAVIER BOYD MD Service: ? Author [...] blinded, parallel group trial IRB NO.: #[id number] CLEARANCE CENTER MANAGER: Pa Prakash MD COORDINATOR/Research Nurse/Snow Technician: Abdelrahman He MD Phone/email: [phone], [email or web address] Consenting was performed in person prior [...] CRITERIA Yes No 1. The patient lacks Anguillan language fluency or cannot understand the consent form/study procedures [] [x] 2. The patient is [] [x] 3. The patient has a BMI >45 [] [x] 4. The patient has undergone previous hiatal hernia repair [] [x] 5. The patient will undergo paraesophageal hernia repair with a concurrent bariatric procedure to reduce stomach volume [] [x][facility] 04-29-2024 History of Present illness Narrative* Xavier Boyd MD - 04/29/2024 12:08 PM EDT Consultation requested by Dr. Latrell Jack for [...] satiety. No previous repairs. Will plan for lapor robotic PEH with or without mesh. I [...] blinded, parallel group trial IRB NO.: #[id number] CLEARANCE CENTER MANAGER: Pa Prakash MD COORDINATOR/Research Nurse/Snow Technician: Abdelrahman He MD Phone/email: [phone], [email or web address] Consenting was performed in person prior to inclusion in the study. The study protocol was discussed in detail with the patient. All study procedures were explained tothe subject, including randomization, the two possible study [...] in long-term follow up including study visits andsurveys [x] [] 4. The patient has a type II, III, or IV hiatal hernia > 5cm, confirmed via upper GI studies, CT, or MRI [x] [] EXCLUSION CRITERIA Yes No 1. The patient lacks [place]gu[place]an language fluency or cannot understand the consent form/study procedures [] [x] 2. The patient is [] [x] 3. The patient has a BMI >45 [] [x] 4. The patient has undergone previous hiatal hernia repair [] [x] 5. The patient will undergo paraesophageal hernia repair with a concurrent bariatric procedure to reduce stomach volume [] [x] * Yan Moser - 04/29/2024 11:16 AM EDT [facility] - HISTORY AND [...] COPD (not on home O2), knee OA, GERDwho presents with symptomatic paraesophageal hernia. BMI 37. We discussed indications for surgery, risks, benefits, alternatives. In light of her elevated BMI, we had a michelle discussion on recurrence rates. She understands and agrees to proceed. She is also insterested in participating on our MVP Trial. - Consents obtained Yan Moser MD General Surgery documented in this encounterMercy Health St. [facility]10-21-2024 NoteHNO ID: [id number] Author: YAN MOSER, ? Service: ? Author Type: Physician Type: Progress Notes Filed: 04/29/2024 12:10 Note Text: [facility] - HISTORY AND PHYSICAL SUBJECTIVE: [...] - Consents obtained Yan Moser MD General SurgeryOhiohealth10-21-2024 Nurse Note* Diomedes Fiore MA - 04/29/2024 10:50 AM EDT What is the reason for your visit today? Consult Who is your referring physician? Dafne Spears Are you having poor oral intake? YES Have you had unintentional weight loss of 15 lbs/7 Kg in the last 3-6 months? NO Bowels: soft, more frequent Wound: none Temperature: No Drains: No [facility]10-21-2024 Nurse Note* Diomedes Fiore MA - 04/29/2024 10:50 AM EDT What is the reason for your visit today? Consult Who is your referring physician? Dafne Spears Are you having poor oral intake? YES Have you had unintentional weight loss of 15 lbs/7 Kg in the last 3-6 months? NO Bowels: soft, more frequent Wound: none Temperature: No Drains: No documented in this encounterMercy Health St. [facility]10-14-2024 Telephone encounter Note * Telephone Encounter - Ashlie Calderon - 04/22/2024 5:32 PM EDT Spoke with PT she state no prior surgeries [facility]10-14-2024 Miscellaneous Notes* Telephone Encounter - Aslhie Calderon - 04/22/2024 5:32 PM EDT Spoke with PT she state no prior surgeries documented in this encounterMercy [facility] St. [facility]10-03-2024 History of Present illness Narrative* Mao Morrow, PhD - 04/11/2024 9:00 AM EDT Images from the original note were not [...] but does have some concern regarding delayed reactiontime and processing, as well as occasionally drifting out of her irina. Minimal exercise due to physi julio c limitations, most notably the COPD. Remains social [...] No history of alcohol/substance abuse. Reformed smoker. [place] language [place]an. Completed high school education as well as some college. Described self asa C student. 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 Motor/Speed of Processing: Left-handed. 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 Recognition discriminability 69th %ile. Forced-choice 16. Immediate recall for prose passages 90th %ile, [...] neuropsychological evaluation demonstrates well-preserved cognition and memory. Hedemonstrates good cognitive reserve for her age. There is no evidence of a neurodegenerative condition or other organic etiology. Findings are completely normal for her age. Presentation is in the context of severe depression, moderate anxiety, as well as fluctuating sleep quality and daytime energy. Overall clinical concerns appear to be most reflective of a distractibility issue. Combination ofthe above factors are sapping attentional resources, thereby [...] lists, date books, calendars, and pocket-size recorders forinformation that must be remembered. A smartphone is [...] of this individual. Please contact me with [employer] at [phone]. documented in this encounterCapital Region Medical CenterTperefipbx75-52-8996 NoteEndoscopic Procedure Report - Other Patient: SHEY OBRIEN [...] 1 tab, Oral, Daily Flonase 0.05 mg/inh [place]: 2 spray(s), Nasal, Daily, Refill(s) 0, Dry [...] a day (at bedtime) Flonase 0.05 mg/inh [place] 2 spray(s), Nasal, Daily losartan 25 mg [...] All Problems HTN (hypertension) / SNOMED CT 0209119030 / Confirmed Chronic obstructive pulmonary disease / SNOMED CT 72147557 / Confirmed Insomnia / SNOMED CT 499579349 / Confirmed Seasonal allergic rhinitis / SNOMED CT 701517703 / Confirmed Dyslipidemia / SNOMED CT 1961214918 / Confirmed BMI 39.0-39.9,adult / SNOMED CT 998871959 / Confirmed Morbid obesity / SNOMED CT 513062300 / Confirmed GERD (gastroesophageal reflux disease) / SNOMED CT 684996687 / Confirmed Hiatal hernia / SNOMED CT 168996388 / Confirmed EDWIN (obstructive sleep apnea) / SNOMED CT 639860345 / Confirmed Lower extremity edema / SNOMED CT 132688864 / Confirmed TIA (transient ischemic attack) / SNOMED CT 480235285 / Confirmed Screening for malignant neoplasm of colon / SNOMED CT 046657103 / Confirmed Dysphagia / SNOMED CT 61551734 / Confirmed Histories Past Medical History: Resolved Hernia (222720784): Resolved. Sleep apnea (105396332): Resolved. Family History: Father Alcoholism Primary malignant neoplasm of lung COPD Mother Cardiac arrest Alzheimer's disease Procedure history: Colonoscopy (173679485) on 10/13/2023 at 73 Years. ORIF - Open reduction of fracture of ankle with internal fixation ([id number]). Meniscal repair (367313736). Tonsillectomy (960394364). Hand tendon repaired (111463086). Social History Social & Psychosocial Habits Alcohol [...] mmHg (MAR 20:) Weight 100 kg (MAR 20) General: in Nad Abdomen: Soft, NTND Impression and Plan Impression: DYSPHAGIA Plan: -EGDFisher [facility] HospitalComment on above:Result Comment: wrong folder Electronically Signed By: Yovanny OLIVO, Dafne Torres\.br\Date and Time Signed: 03/20/24 12:47 [id number] History of Present illness Narrative* Mao Morrow, PhD - 03/26/2024 2:30 PM EDT Images from the original note were not included. Mao Morrow, PhD NEUROBEHAVIORAL STATUS EXAMINATION Shey Obrien is a 73 y.o. female [...] No history of alcohol/substance abuse. Reformed smoker. [place] language [place]illan. Completed high school education as well as some college. Describes itself as a C student. 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 [...] of this individual. Please contact me with [employer] at [phone]. documented in this encounterCapital Region Medical CenterMoxvqpewhc73-93-0977 Hospital Discharge instructions Patient Education 03/20/2024 13:07:59 Duodenitis Duodenitis Duodenitis is when the lining of the first part of your small intestine (duodenum) becomes inflamed. It is often caused by a bacterial infection. You may also have open sores in your intestine calledulcers. Duodenitis may start all of a sudden and last for a short time (acute). It may also develop over time and last for months or years (chronic). What are the causes? The most common cause of this condition is an infection from a type of bacteria called Helicobacterpylori (H. pylori). Other causes include: Long-term use [...] tube with a camera on the end (endoscope)down your throat. A biopsy may be taken. [...] Follow these instructions at home: Medicines Take tdxn-jru-cuqxpbj and prescription medicines only as told by [...] or drinks. ?Garlic or onions. ?Spicy foods. ?[place] fruits. ?Tomato-based foods. ?Fatty or fried foods. General instructions Do not use any products that contain nicotine or tobacco. These products include cigarettes, chewing tobacco, and vaping devices, such as e-cigarettes. If you need help quitting, ask your health careprovider. Contact a health care provider if: You [...] provider. Document Revised: 01/09/2023 Document Reviewed: 01/09/2023 [employer] Patient Education 2023 [employer]. 03/20/2024 13:07:56 Gastritis, Adult, Vkil-ou-Mrju Gastritis, Adult Gastritis is irritation and swelling (inflammation) of the stomach. There are two kinds of gastritis: Acute gastritis. This kind develops quickly. Chronic gastritis. This kind is much more common. It develops slowly and lasts for a long time. It is important to get help for this condition. If you do not get help, your stomach can bleed, andyou can get sores (ulcers) in your stomach. [...] Follow these instructions at home: Medicines Take qsxy-lui-mnnhzkk and prescription medicines only as told by [...] away. Call your local emergency services (911 int [place] Do not wait to see if [...] provider. Document Revised: 10/30/2021 Document Reviewed: 10/30/2021 [employer] Patient Education 2023 [employer] 03/20/2024 13:07:48 Hiatal Hernia Hiatal Hernia [...] may be born with a weakness in thehiatus, or a weakness can develop over time. What increases the risk? This condition is more likely to develop in: Older people. Age is a major risk factor for a hiatal hernia, especially if you are over the age of50. women. People who are overweight. People who [...] reduce GERD symptoms. Medicines. These may include: ?Gudz-fwy-jeozoov antacids. ?Medicines that make your stomach empty [...] you need help quitting, ask your health careprovider. Try to achieve and maintain a healthy [...] may include: ?Fatty foods, like fried foods. ?[place] fruits, like oranges or lemon. ?Other foods [...] Do not drink alcohol. General instructions Take ukrj-lom-mjqysky and prescription medicines only as told by [...] provider. Document Revised: 08/23/2022 Document Reviewed: 08/23/2022 [employer] Patient Education 2023 [employer]. 03/20/2024 13:07:46 Endoscopy, Care After Procedure [facility] Endoscopy Care After Procedure Please read the instructions outlined below and refer to this sheet in the next few weeks. These discharge instructions provide you with general information on caring [facility] Your doctor may also give you [...] Document Re-Released: 12/18/2006 ExitCare Patient Information 2009 [employer]. Follow Up Care 02/26/2024 09:52:05 With:Yovanny OLIVO, Dafne Torres [facility], [facility] Address: When: Unknown Comments:Call for any problems. Office will call to schedule follow up appointment [facility] 09-11-2024 Evaluation + Plan note Future Scheduled Tests Radiology* XR Esophagus 03/20/24 [facility] 09-11-2024 NotePatient Education - Text Endoscopy Care After Procedure Please read the instructions outlined below and refer to this sheet in the next few weeks. These discharge instructions provide you with general information on caring [facility] Your doctor may also give you [...] blood. Document Released: 02/07/2005 Document Re-Released: 12/18/2006 [employer], Mobile Secretary? Patient Information ?2009 [employer]. Gastroenterology Hiatal Hernia A hiatal hernia occurs [...] may be born with a weakness in thehiatus, or a weakness can develop over time. [...] of your GI tract that is taken afteryou swallow a chalky liquid that shows up [...] symptoms. ? Medicines. These may include: ? Tgvt-obq-[id number] antacids. ? Medicines that make your stomach [...] ? Avoid putting pressu (more content not included)...[facility] 03-20-2024 NoteEndoscopic Procedure Report - Other Patient: SHEY OBRIEN [...] safety measures. Endoscope type used was an adult- size, introduced orally, advanced to the 3rd portion [...] otherwise normal examined duodenum Images Procedure images: Rec1_hd_video___[id number].jpg Rec1_hd_video____35_581.jpg Rec1_hd_video___25_745.jpg Rec1_hd_video___15_326.jpg Rec1_hd_video___14_566.jpg Rec1_hd_video____01_833.jpg . Post-Procedure Complications: none. Estimated blood loss: [...] if surgery referral is indicated, will be orderedMercy Health Fairfield HospitalComment on above:Result Comment: Electronically Signed By: Yovanny OLIVO, Dafne Torres\.br\Date and Time Signed: 03/20/24 12:58 EDTOther Comment: Missing Attachment - attachment storage system not supported [id number] Can be viewed in source systemMissing Attachment - attachment storage system not supported [id number] Can be viewed [facility] systemMissing Attachment - attachment storage system not supported [id number] Can be viewed in source systemMissing Attachment - attachment storage system not supported [id number] Can be viewed in source systemMissing Attachment - attachment storage system not supported [id number] Can be viewed in source systemMissing Attachment - attachment storage system not supported [id number] Can be viewed in source [id number] NoteEndoscopic Procedure Report - Other Patient: SHEY OBRIEN [...] 1 tab, Oral, Daily Flonase 0.05 mg/inh Luckey: 2 spray(s), Nasal, Daily, Refill(s) 0, Dry [...] a day (at bedtime) Flonase 0.05 mg/inh Luckey 2 spray(s), Nasal, Daily losartan 25 mg [...] All Problems HTN (hypertension) / SNOMED CT 1142192307 / Confirmed Chronic obstructive pulmonary disease / SNOMED CT 82934352 / Confirmed Insomnia / SNOMED CT 419638105 / Confirmed Seasonal allergic rhinitis / SNOMED CT 467227428 / Confirmed Dyslipidemia / SNOMED CT 1326768399 / Confirmed BMI 39.0-39.9,adult / SNOMED CT 517720483 / Confirmed Morbid obesity / SNOMED CT 193175184 / Confirmed GERD (gastroesophageal reflux disease) / SNOMED CT 518122961 / Confirmed Hiatal hernia / SNOMED CT 292762904 / Confirmed EDWIN (obstructive sleep apnea) / SNOMED CT 723661308 / Confirmed Lower extremity edema / SNOMED CT 610938196 / Confirmed TIA (transient ischemic attack) / SNOMED CT 133143311 / Confirmed Screening for malignant neoplasm of colon / SNOMED CT 476117934 / Confirmed Dysphagia / SNOMED CT 53843452 / Confirmed Histories Past Medical History: Resolved Hernia (680659638): Resolved. Sleep apnea (341667624): Resolved. Family History: Father Alcoholism Primary malignant neoplasm of lung COPD Mother Cardiac arrest Alzheimer's disease Procedure history: Colonoscopy (034007860) on 10/13/2023 at 73 Years. ORIF - Open reduction of fracture of ankle with internal fixation (830802317127509). Meniscal repair (891210409). Tonsillectomy (597540396). Hand tendon repaired (307100100). Social History Social & Psychosocial Habits Alcohol [...] 20 11:14) SBP H 173 mmHg (MAR 20 11:14) DBP 72 mmHg (MAR 20:14) Weight 100 kg (MAR 20:14) General: in Nad Abdomen: Soft, NTND Impression and Plan Impression: DYSPHAGIA Plan: -EGMercy Memorial HospitalComment on above:Result Comment: Electronically Signed By: Yovanny OLIVO, Dafne Torres\.br\Date and Time Signed: 03/20/24 12:47 [id number] History of Present illness Narrative* Dioemdes Fitzgerald DO - 03/07/2024 11:30 AM EDT Images from the original note were not included. Chief Complaint Patient presents with Memory Loss Dysphagia Subjective Shey Diaz Karyn, 73 y.o., female, was referred back to Dr Fitzgerald for memory loss and dysphagia from Dr Latrell Jack. She is here by herself today. She is unsure of when her memory started declining.She does think it was within the past year. She admits short term memory troubles. She will be toldsomething in the morning and forget by the evening. Sometimes it will come back to her. She states she almost forgot to take her great-granddaughter to work last night, but then she was reminded. Shewill occasionally have trouble word finding. She was [...] not like wearing it. She cannot lay downwithout it because she cannot breathe without it. [...] help assist with her history. She however givea fairly good history. At this point in [...] was counseled on the risks of stroke, AL, and sudden with EDWIN, along with the [...] instructions Return to clinic: documented in this encounterCapital Region Medical [id number] Note [id number] [facility] Evaluation + Plan noteExtracted from: Title:ANES Post-operative Note - General Author: Shaji Bethea Jr., DO Date:10/13/23 Plan Transfer/Discharge: Transfer/Discharge Discharge when meets criteria ( From PACU to Ambulatory Surgery Unit, and To home ). Extracted from: Title:ANES Pre-operative Note - Endo Author:Shaji Mendoza Jr., DO Date:10/13/23 Plan [place] [employer]hesi[employer] (ASA) physical status classification: Class III. Anesthetic Preoperative Plan: Anesthesia General, and -TIVA. [facility]04-05-2024 Hospital Discharge instructions Patient Education 10/13/2023 09:31:42 Colonoscopy, Care After Surgery Salam (CUSTOM) Colonoscopy Care After Surgery Please read the instructions outlined below and refer to this sheet in the next few weeks. These discharge instructions provide you with general information on caring for yourself [facility] Your doctor may also give you [...] Up Care 09/12/2023 10:17:58 With:Pa WEBB Address: [facility] Matt Mcnally, [facility] [address] [phone] Business (1) When: only if needed [facility]04-05-2024 NotePatient: SHEY OBRIEN Age: 73 years Sex: Female : 1950 Associated Diagnoses: None Author: Pa WEBB MD Subjective no changes to H & PFDayton Osteopathic HospitalComment on above:Result Comment: Electronically Signed By: Pa WEBB MD\.br\Date and Time Signed: 10/13/23 09:45 [id number] NoteChief Complaint consultation for colonoscopy HPI Staff [...] a day (at bedtime) Flonase 0.05 mg/inh Luckey, 2 spray(s), Nasal, Daily losartan 25 mg [...] Alcoholism: Father. Alzheimer's di (more content not included)...[facility] HospitalComment on above:Result Comment: Electronically Signed By: Pa WEBB MD\Date and Time Signed: 09/12/23 10:16 [id number] History of Present illness Narrative* Latrell Jack [...] referral to General Surgery documented in this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 Relationship Specialty Start Date End Date Latrell Jack MD [address] [place] [address] PCP - General Family Medicine 08/05/23 Latrell Jack MD [address] [place] [address] PCP - ACO Reach 08/16/24 Diomedes Fitzgerald DO [address] [place] [address] Referring Physician Neurology 05/30/24 Overhead Foreman Relationship Specialty Start Date End Date Latrell Jack MD [address] [place] [address] PCP - General Family Medicine 08/05/23 Latrell Jack MD [address] [place] [address] PCP - ACO Reach 08/16/24 Diomedes Fitzgerald DO [address] [place] [address] Referring Physician Neurology 05/30/24 Overhead Foreman Relationship Specialty Start Date End Date Latrell Jack MD [address] [place] [address] PCP - General Family Medicine 08/05/23 Latrell Jack MD [address] [place] [address] PCP - ACO Reach 08/16/24 Diomedes Fitzgerald DO [address] [place], [place] [phone] Referring Physician Neurology 05/30/24 Team Status: Active Member Role Status Dates Latrell Jack MD Primary Care Provider Active Team Status: Inactive Member Role Status Dates Latrell Jack MD Primary Care Provider Active S tart: December 12, 2024 End: December 16, 2024 Erik Kim MD Admit Provide r, Attending Provider Active Start: December 12, 2024 End: December 16, 2024 Team Status: Active Member Role Status Dates Latrell Jack MD Primary Care Provider Active S tart: December 13, 2024 Erik Kim MD Admit Provide r, Attending Provider, Other Provider Active Start: December 13, 2024 Reason for Visit (unrecogniz ed section and content) Reason Comments Follow-up 6 m Reason Comments New Patient Evaluation Hiatal Hernia Reason Comments 07.24.24 Cure Lap Paraesophageal H ernia Repair/EGD 4 hours los 1 Reason Comments Follow-up 3 m Reason Onset Date Comments Medication Question 06/13/2024 Reason Comments Memory Loss Dysphagia Specialty Diagnoses / Procedures Referred By Contac t Referred To Contact Neurology Diagnoses 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[facility]) Other dysphagia Procedures MT OFFICE/OUTPATIENT NEW HIGH MDM 60 MINUTES Latrell Jack MD [address] [place] [address] Diomedes Fitzgerald DO [address] [place] [address] Referral ID Status Reason Start Date Expiration Date V isits Requested Visits Authorized [id number] Closed Specialty Services Required 02/09/2024 08/07/2024 1 1 Reason Comments Memory Loss Specialty Diagnoses / Procedures Referred By Contac t Referred To Contact Diagnoses Preoperative examination Paraesophageal hernia Procedures REFER TO PACC / [facility] - PREOPERATIVE OPTIMIZATION OFFICE/OUTPATIENT [facility] 60 MINUTES Katarzyna SnyderLISSETTE.COMMERCIAL LINES ACCOUNT ASSISTANT [address] [facility] [place] [address] Referral ID Status Reason Start Date Expiration Date V isits Requested Visits Authorized [id number] Closed PCP Requested Referral 05/06/2024 05/04/2025 1 [...] or prosecute any alcohol or drug abuse patient.[facility] the event this information is protected by the Federal Confidentiality of Alcohol and Drug Abuse Patient Records regulations: The Federal rules restrict any use of the information to criminally investigate or prosecute any alcohol or drug abuse patient.[facility] the event this information is protected by the Federal Confidentiality of Alcohol and Drug Abuse Patient Records regulations: The Federal rules restrict any use of the information to criminally investigate or prosecute any alcohol or drug abuse patient.[facility] the event this information is protected by the Federal Confidentiality of Alcohol and Drug Abuse Patient Records regulations: The Federal rules restrict any use of the information to criminally investigate or prosecute any alcohol or drug abuse patient.[facility] the event this information is protected by the Federal Confidentiality of Alcohol and Drug Abuse Patient Records regulations: The Federal rules restrict any use of the information to criminally investigate or prosecute any alcohol or drug abuse patient.[facility] the event this information is protected by the Federal Confidentiality of Alcohol and Drug Abuse Patient Records regulations: The Federal rules restrict any use of the information to criminally investigate or prosecute any alcohol or drug abuse patient.[facility] FOR RECORDS PERTAINING TO PATIENTS WHO [...] BE BASED ON THE PRIMARY CLINICAL RECORDS. [facility] [facility]. provides no warranty or guarantee of the accuracy or completeness of information in this document.
--- NOTE | 2025-01-09 08:16 | PM.CN ---
Consult Note: HPI Data of Consult Patient: known to practice within the last 3 years Requesting Physician: Amalia Woodson NP Primary Care Provider: Latrell Mckeon MD Consult Narrative Reason for consult: left hip and left shoulder pain Narrative: Shey Mckoy a pleasant 74 year old female with chronic low back and SIJ pain presents for evaluation. pain today 2/10 increasing aching with standing, walking, leaning, bending, ADLs, and activity. reports most significant pain in left posterior hip. recently underwent left L4/5 L5/S1 TFESI with significant ongoing improvement in NC. utilizing tylenol PRN, robaxin PRN, zonegran 100mg HS with improvement without side effects. cc:: CC: Amalia Woodson NP PFSH PFS Medical History Osteoarthritis �M19.90 - Unspecified osteoarthritis, unspecified site (ICD-10) Anxiety �F41.9 - Anxiety disorder, unspecified (ICD-10) Hiatal hernia �K44.9 - Diaphragmatic hernia without obstruction or gangrene (ICD-10) Sleep apnea �G47.30 - Sleep apnea, unspecified (ICD-10) COPD (chronic obstructive pulmonary disease) �J44.9 - Chronic obstructive pulmonary disease, unspecified (ICD-10) High cholesterol �E78.00 - Pure hypercholesterolemia, unspecified (ICD-10) HTN (hypertension) �I10 - Essential (primary) hypertension (ICD-10) Surgical History History of ankle surgery �Z98.890 - Other specified postprocedural states (ICD-10) History of hand surgery �Z98.890 - Other specified postprocedural states (ICD-10) History of knee replacement �Z96.659 - Presence of unspecified artificial knee joint (ICD-10) Social History Little interest or pleasure in doing things: not at all Feeling down, depressed, or hopeless: not at all Meds Home Medications and Allergies Home Medications �Medication �Instructions �Recorded �Confirmed �Type aspirin 81 mg tablet,delayed 81 mg PO DAILY 04/16/24 12/30/24 History release (Adult Aspirin Regimen) atorvastatin 40 mg tablet 40 mg PO DAILY 04/16/24 12/30/24 History calcium carbonate (Calcium 500) 500 mg PO BID 04/16/24 12/30/24 History donepezil 5 mg tablet (Aricept) 5 mg PO DAILY 04/16/24 12/30/24 History famotidine 40 mg tablet 40 mg PO DAILY 04/16/24 12/30/24 History fluticasone propionate 50 2 spray intranasal DAILY PRN 04/16/24 12/30/24 History mcg/actuation nasal allergy symptoms spray,suspension (24 Hour Allergy Relief) losartan 50 mg tablet 50 mg PO DAILY 04/16/24 12/30/24 History pantoprazole 40 mg tablet,delayed 40 mg PO DAILY 04/16/24 12/30/24 History release tiotropium bromide 18 mcg capsule 1 cap inhalation DAILY 04/16/24 12/30/24 History with inhalation device (Spiriva with HandiHaler) vitamin E 268 mg (400 unit) capsule 268 mg PO DAILY 04/16/24 12/30/24 History zolpidem 12.5 mg tablet,extended 12.5 mg PO DAILY 04/16/24 12/30/24 History release,multiphase methocarbamol 500 mg tablet 500 mg PO Q8H PRN pain #20 tabs 12/01/24 12/30/24 Rx zonisamide 50 mg capsule 100 mg (2 x 50 mg) PO DAILY #60 12/12/24 12/30/24 Rx caps Allergies Allergy/AdvReac Type Severity Reaction Status Date / Time No Known Drug Allergies Allergy Verified 12/30/24 08:20 Exam Constitutional Documenting provider has reviewed patient's vital signs: yes Common normals: no apparent distress, oriented x3, healthy appearing, alert and well nourished General appearance: cooperative [facility] Common normals: normocephalic, hearing grossly normal bilaterally and moist oral mucous membranes Head and scalp: normocephalic Eye Common normals: PERRL Pupil: PERRL Neck & C-Spine Common normals: full ROM General: normal visual inspection Other: positive spurlings decreased sensation to left C5,6,7 strength 5/5 in BUE positive facet loading left>right Chest Common normals: inspection of chest normal Respiratory Common normals: normal respiratory effort, no retractions and no use of accessory muscles Back & Pelvis Lumbar spine/lower back: normal to inspection, lumbar ROM normal and straight leg raise negative bilaterally; no pain with ROM Sacroiliac joints: SI joint(s) abnormal Other: left sij positive mauro(patricks), gaenslens, thigh thrust, compression test sensation intact BLE strength 5/5 in BLE Extremity Left lower extremity: hip joint Other: increased pain of left hip with internal and external rotation pt unable to complete posterior liftoff and scratch test due to pain and limited ROM of left shoulder, tenderness noted around rotator cuff insertion site and supraspinatus tendon. negative empty can, crossbody adduction. no edema noted. strength intact Neuro Common normals: oriented x3 Sensorium/orientation: alert Psych Common normals: mental status grossly normal, thought process normal, cooperative, affect normal, speech normal and activity/motor behavior normal Speech: normal speech Thought process: normal thought process Results Additional Findings Additional findings: If on a controlled substance or opioids, I have checked an [place] report on this patient and there are no aberrancies noted in the prescribing history.��If on a controlled substance or opioid a drug screen was completed and reviewed within the last year, and if there has not been a drug screen completed we ordered one today to monitor higher risk, state monitored pain medication use. As part of providing excellent, safe, comprehensive care, the following was completed at our patient's visit: 1. A medication reconciliation and review to ensure accurate knowledge of current/active medications, including asking our patients to inform us about any [id number] medications or herbal remedies/nutritional supplements/alternative remedies. 2. A review to specifically ensure our patients have had annual screening for screening for depression, screening for tobacco use, and screening for unhealthy alcohol use. For concerning screenings had a discussion with the patient, provided patient education, and recommended follow-up with primary care provider when appropriate. If patient noted with a risk of falling, they received education on strength, gait, and balance training to prevent future risk of falling. Portions of this note may have been carried over from the previous visit and updated as appropriate. Please note this office utilizes paper charting in addition to the electronic medical record. A list of current medications, vitals, and PMH is available there as the clinical staff outside of myself do not have access to [employer] charting during the clinic day operations. As part of providing quality comprehensive care the current medications, vitals, and PMH were reviewed in the paper chart. Assessment and Plan Assessment and Plan (1) Sacroiliitis: Assessment and Plan: continues to endorse left SIJ pain (2) Lumbar stenosis with neurogenic claudication: Assessment and Plan: 12/30/24 left L4/5 L5/S1 TFESI >70% improvement ongoing (3) Lumbar spondylosis: Plan pleasant 74 year old female presents for evaluation of chronic low back pain unresponsive to > 6 weeks of PT/HEP, heat, ice, tylenol, NSAIDs. finding benefit to left L4/5 L5/S1 TFESI. defer left sij injection under fluoroscopy at this time, pt can call to schedule if pain worsens. continue current medications. f/u 3 months, or 2 weeks after SIJ injection
== END 2025-01-09 07:56 | disposition home or self-care (01) ==
LOC: PM 07:56
PROVIDERS: PCP Family Medicine; Visit Provider Nurse Practitioner
DX: M46.1 Sacroiliitis, not elsewhere classified (principal); M48.062 Spinal stenosis, lumbar region with neurogenic claudication; M47.816 Spondylosis without myelopathy or radiculopathy, lumbar region
CPT/HCPCS: G0463

== ENCOUNTER 2025-02-27 11:25 | Outpatient (OUT) | payer MEDICARE, OTHER, SELFPAY ==
--- OUTSIDE RECORDS SUMMARY | 2025-02-24 10:30 | XMS_ITS | Encounter Summary ---
Author Organization [facility] Address [address] [facility] [place] [address] Care Team Providers Care Field Map Technician Name Role Phone Latrell Mckeon MD Primary Care Provider [phone] Siomara Fitzgerald DO Unavailable [phone] Latrell Mckeon MD Unavailable Sugar Arenas IMAGING CLERK Unavailable [phone] Reason for Referral * Imaging (Routine) - Authorized Specialty Diagnoses / Procedures Referred By Contac t Referred To Contact Radiology Diagnoses Former smoker Procedures CT lung screening low dose Latrell Mckeon MD [address] [place] [address] Phone: tel: fax: [facility] [address] [place] [address] Phone: tel: fax: Referral ID Status Reason Start Date Expiration Date V isits Requested Visits Authorized [id number] Authorized 02/24/2025 08/23/2025 1 1 Reason for Visit * Reason Comments Follow-up 6m Encounter Details Date Type Department Care Team ([facility] Contact Info) Description 02/24/2025 10:30 AM EDT [facility] [address] [place] [phone] Latrell Mckeon MD [address] [place] [address] Essential hypertension, benign (Primary Dx); Chronic obstructive pulmonary disease, unspecified COPD type (HCC); Primary insomnia; Primary osteoarthritis of both knees; Breast cancer screening by mammogram; Former smoker Social History Tobacco Use Types Packs/Day Years [...] often do you attend chur ch or congregational services? Patient declined 02/02/2024 Do you belong to any clubs o r organizations such as denominational groups, unions, fraternal or athletic groups, or [...] Recorded Patient Health Questionnaire-2 Score 0 08/27/2024 [facility] - Occupational Stress Questionnaire Answer Date [...] any time in the past 12 m [facility], were you homeless or living in a senior care (including now)? No 02/02/2024 Comments Unknown Sex and Gender Information Value Date Recorded Sex Assigned at Not on file Legal Sex Female 7:08 PM EDT Gender Identity Not on file Sexual Orientation Not on file documented as of this encounter Last Filed Vital Signs Vital Sign Reading Time Taken Comments Blood Pressure 162/76 02/24/2025 11:00 AM EDT Pulse 106 02/24/2025 11:00 AM EDT Temperature 36.2 C (97.1 F) 02/24/2025 11:00 AM EDT Respiratory Rate 22 02/24/2025 11:00 AM EDT Oxygen Saturation 95% 02/24/2025 11:00 AM EDT Inhaled Oxygen Concentration - - Weight 103 kg (226 lb) 02/24/2025 11:00 AM EDT Height 160 cm (5' 3 ) 02/24/2025 11:00 AM EDT Body Mass Index 40.03 02/24/2025 11:00 AM EDT documented in this encounter Progress Notes * Latrell Mckeon MD - 02/24/2025 4:01 PM EDTAssociated Problem(s): Primary osteoarthritis of both knees Pain stable and use OTC PRN. * Latrell Mckeon MD - 02/24/2025 4:01 PM EDTAssociated Problem(s): Primary insomnia Sleeping well with lunesta and continue. * Latrell Mckeon MD - 02/24/2025 4:01 PM EDTAssociated Problem(s): Former smoker Quit in 2011 but prior 1 PPD for 40 plus years. Check LDCT chest. * Latrell Mckeon MD - 02/24/2025 4:00 PM EDTAssociated Problem(s): Essential hypertension, benign BP elevated and increase losartan. Continue to monitor PRN. * Latrell Mckeon MD - 02/24/2025 4:00 PM EDTAssociated Problem(s): COPD (chronic obstructive pulmonary disease) (HCC) SOB stable and continue albuterol nebulized PRN. * Latrell Mckeon MD - 02/24/2025 10:30 AM EDT Images from the original note were not included. Subjective Patient ID: Shey Mckoy is a 74 y.o. female who presents for Follow-up (6m). Follow up HTN, COPD, insomnia, OA knees, GERD, and EDWIN. Checking BP PRN and improved but still elevated. BP typically 140s-160s systolic and 162/76 today. Taking medication daily and tolerating without side effects. COPD stable. Taking spiriva daily and using albuterol PRN. Mild SOB and fatigue with exertion. Occasional cough but no sputum. Mild SOB to go up or down stairs. Sleeping better with lunesta. Able to fall asleep and stay asleep. Wakes up rested in am. OA knee stable. Frequent popping, clicking, and grinding. At times unsteady and give out. Using OTC PRN. GERD controlled with protonix. Denies epigastric pain or burning and not waking up with symptoms. EDWIN controlled [...] Items Addressed This Visit Essential hypertension, benign - Primary BP elevated and increase losartan. Continue to monitor PRN. Relevant Medications losartan (Cozaar) 100 MG tablet Primary osteoarthritis of both knees Pain stable and use OTC PRN. COPD (chronic obstructive pulmonary disease) (HCC) SOB stable and continue albuterol nebulized PRN. Primary insomnia Sleeping well with lunesta and continue. Former smoker Quit in 2011 but prior 1 PPD for 40 plus years. Check LDCT chest. Relevant Orders CT lung screening low dose Other Visit Diagnoses Breast cancer screening by mammogram Relevant Orders Bilateral screening mammogram documented in this encounter Plan of Treatment Upcoming Encounters Date Type Department Care Team (Late st Contact Info) Description 04/29/2025 1:15 PM EDT Office Visit [facility] [address] [place] [address] Latrell Mckeon MD [address] [place] [address] Scheduled Orders Name Type Priority Associated Diagnoses Orde r Schedule Bilateral screening mammogram Imaging Routine Breast cancer screening by mammogram Expected: 02/24/2025, Expires: 04/26/2026 CT lung screening low dose Imaging Routine Former smoker Expected: 02/24/2025, Expires: 02/24/2026 documented as of this encounter Visit Diagnoses Diagnosis Essential hypertension, benign- Primary Essential hypertension, benign Chronic obstructive pulmonary disease, unspecified COPD type (HCC) Primary insomnia Persistent disorder of initiating or maintaining sleep Primary osteoarthritis of both knees Breast cancer screening by mammogram Former smoker Personal history of tobacco use, presenting hazards to health documented in this encounter Additional Health Concerns Assessment Noted Time PHQ-9 Depression Total Score: 4 08/27/19 25 10:00 AM EST documented as of this encounter Care Teams Field Map Technician Relationship Specialty Start Date End Date Latrell Mckeon MD [address] [place] [address] PCP - General Family Medicine 08/05/23 Latrell Mckeon MD [address] [place] [address] PCP - ACO Reach 08/16/24 Siomara Fitzgerald DO [address] [place], [place] [address] Referring Physician Neurology 05/30/24 Sugar Arenas, FABIANO [address] [place] [address] Assistant Restaurant General Manager Family Medicine 01/16/25 documented as of this encounter
--- NOTE | 2025-02-27 11:27 | MM_ITS ---
Patient Name: PARTH BOSS MR#: [id number] : 1950 Exam Date: 02/27/2025 Ordering Doctor: DR SHERMAN JACK . RADIOLOGY REPORT PROCEDURE: MM TOMOSYNTHESIS SCREENING BI COMPARISON: MM TOMOSYNTHESIS SCREENING BI, 11/28/2023. MG MAMM SCREEN 3D RONALD CAD, 11/24/2022. MG MAMM SCREEN 3D RONALD CAD, 11/11/2021. MG MAMM SCREEN 3D RONALD CAD, 11/05/2020. INDICATIONS: Screenng Calculator Name NCI Breast Cancer Risk Assessment Tool 5 Year Breast Cancer Risk 2.00% Lifetime Breast Cancer Risk 4.80% Personal Breast Cancer No Personal Ovarian Cancer No Treatments None Family Cancers Father with lung cancer at age 45. LOCATION: [facility] BREAST COMPOSITION: The breasts are almost entirely fatty. FINDINGS: RIGHT BREAST: No significant suspicious finding. Benign-appearing calcifications are present. Benign appearing lymph nodes are present. LEFT BREAST: No significant suspicious finding. Benign-appearing lymph nodes are present along with chest wall. DIAGNOSTIC CATEGORY 2--BENIGN FINDING. NO CHANGE FROM COMPARISON. RECOMMENDATIONS: ROUTINE MAMMOGRAM AND CLINICAL EVALUATION IN 12 MONTHS. Dictated by: Pa Villa MD on 02/27/2025 at 14:04 Approved by: Pa Villa MD on 02/27/2025 at 14:07
--- OUTSIDE RECORDS SUMMARY | 2025-02-27 11:29 | XMS_ITS | Encounter Summary ---
Author Organization [facility] Address [address] [place] [address] Care Team Providers Care Broth Mixer Name Role Phone Latrell Mckeon MD Primary Care Provider [phone] Siomara Fitzgerald DO Unavailable [phone] Latrell Mckeon MD Unavailable Sugar Arenas CYBER INCIDENT ANALYST Unavailable [phone] Encounter Details Date Type Department Care Team (Late st Contact Info) Description 11/28/2023 Clinisync Result Encounter [facility] External Department Unsolicited Latrell Mckeon MD [address] [place] [address] Social History Tobacco Use Types [...] Department Care Team (Late Contact Info) Description 04/29/2025 1:15 PM EDT Office Visit [facility] [address] [place] [address] Latrell Mckeon MD [address] [place] [address] documented as of this encounter Procedures Procedure Name Priority Date/Time Associated Diagnosis Comments MM TOMOSYNTHESIS SCREENING BI 11/28/2023 3:15 PM EDT documented in this encounter Results * MM TOMOSYNTHESIS SCREENING BI (11/28/2023 3:15 PM EDT) Anatomical Region Laterality Modality Other 11/28/2023 3:15 PM EDT Narrative 11/28/2023 3:16 [place] [address] Mammography Report Signed Patient: SHEY BOSS MR#: [id number] : 1950 Acct:[id number] Age/Sex: 73 / F ADM Date: 11/28/23 Loc: MAMMO Attending Dr: Latrell Mckeon M.D. Ordering Physician: Latrell Mckeon M.D. Results: Date of Service: 11/28/23 Follow Up: Procedure(s): MM tomosynthesis screening BI Accession Number(s): [id number] cc: Latrell Mckeon M.D. Patient Name: SHEY BOSS MR#: [id number] : 1950 Exam Date: 11/28/2023 Ordering Doctor: [...] lung cancer at age 46. LOCATION: [facility] BREAST COMPOSITION: The breasts are almost [...] Signed By: 11/28/23 1516 DD/ 1515 TD/TT: Film Reproducer: Procedure Note Radiology, Radiologist, MD - 11/28/2023 [place] [address] Mammography Report Signed Patient: SHEY BOSS LMR#: [id number] : 1950cct:[id number] Age/Sex: 73 / FADM Date: 11/28/23 Loc: MAMMO Attending Dr: Latrell Mckeon M.D. Ordering Physician: Latrell Mckeon M.D.Results: Date of Service: 11/28/23Follow Up: Procedure(s): MM tomosynthesis screening BI Accession Number(s): [id number] cc: Latrell Mckeon M.D. Patient Name: SHEY BOSS MR#: [id number] : 1950 Exam Date: 11/28/2023 Ordering Doctor: DR Latrell Martinez RADIOLOGY REPORT PROCEDURE: MM TOMOSYNTHESIS SCREENING BI [...] lung cancer at age 46. LOCATION: [facility] BREAST COMPOSITION: The breasts are almost [...] M.D. Signed By:11/28/23 1516 DD/ 1515 TD/TT: Film Reproducer: Latrell Mckeon MD [facility] Final Result documented in this encounter Visit Diagnoses Not on filedocumented in this encounter Care Teams Broth Mixer Relationship Specialty Start Date End Date Latrell Mckeon MD [address] [place] [address] PCP - General Family Medicine 08/05/23 Latrell Mckeon MD [address] [place] [address] PCP - ACO Reach 08/16/24 Siomara Fitzgerald DO [address] [place] [address] Referring Physician Neurology 05/30/24 Sugar Arenas LSW [address] [facility] [place] [address] Custom Protection Officer Family Medicine 01/16/25 documented as of this encounter
--- OUTSIDE RECORDS SUMMARY | 2025-02-27 11:29 | XMS_ITS | Encounter Summary ---
Author Organization [facility] Address [address] [place] [address] Care Team Providers Care Er Tech Name Role Phone Latrell Mckeon MD Primary Care Provider [phone] Siomara Fitzgerald DO Unavailable [phone] Latrell Mckeon MD Unavailable Sugar Arenas HIGHBALLER Unavailable [phone] Encounter Details Date Type Department Care Team (Late Contact Info) Description 11/28/2023 Orders Only [facility] [address] [place] [address] Latrell Mckeon MD [address] [place] [address] Social History Tobacco Use Types Packs/Day Years Used Date Smoking Tobacco: Former Cigarettes 1 40 1 972 - 2011 Smokeless Tobacco: Never PHQ-2 Answer Date Recorded Patient Health Questionnaire-2 Score 0 08/11/2023 Comments Unknown Sex and Gender Information Value Date Recorded Sex Assigned at Not on file Legal Sex Female 7:08 PM EDT Gender Identity Not on file Sexual Orientation Not on file documented as of this encounter Plan of Treatment Upcoming Encounters Date Type Department Care Team ([facility] Contact Info) Description 04/29/2025 1:15 PM EDT Office Visit [facility] [address] [place] [address] Latrell Mckeon MD [address] [place] [address] documented as of this encounter Procedures Procedure [...] on filedocumented in this encounter Care Teams Er Tech Relationship Specialty Start Date End Date Latrell Mckeon MD [address] [place] [address] PCP - General Family Medicine 08/05/23 Latrell Mckeon MD [address] [place] [address] PCP - ACO Reach 08/16/24 Siomara Fitzgerald DO [address] [place] [address] Referring Physician Neurology 05/30/24 Sugar Arenas, HIGHBALLER [address] [place], [place] [address] Control Center Operator Family Medicine 01/16/25 documented as of this encounter
--- OUTSIDE RECORDS SUMMARY | 2025-02-27 11:29 | XMS_ITS | Encounter Summary ---
Author Organization [facility] Address [address] [place] [address] Care Team Providers Care Bath Design Sales Consultant Name Role Phone Latrell Mckeon MD Primary Care Provider [phone] Siomara Fitzgerald DO Unavailable [phone] Latrell Mckeon MD Unavailable Sugar Arenas MANNEQUIN WIG MAKER Unavailable [phone] Reason for Visit * Reason Comments Med Refill Encounter Details Date Type Department Care Team (Late st Contact Info) Description 08/02/2024 [facility] [address] [place] [address] Latrell Mckeon MD [address] [place] [address] Social History Tobacco Use Types Packs/Day Years [...] any clubs o r organizations such as yarsanism groups, unions, fraternal or athletic groups, or [...] Recorded Patient Health Questionnaire-2 Score 0 08/11/2023 [facility] - [...] time in the past 12 m [facility], were you homeless or living in a prison (including now)? No 02/02/2024 Comments Unknown Sex and Gender Information Value Date Recorded Sex Assigned at Not on file Legal Sex Female 7:08 PM EDT Gender Identity Not on file Sexual Orientation Not on file documented as of this encounter Plan of Treatment Upcoming Encounters Date Type Department Care Team (Late Contact Info) Description 04/29/2025 1:15 PM EDT Office Visit [facility] [address] [place] [address] Latrell Mckeon MD [address] [place] [address] documented as of this encounter Visit Diagnoses Not on filedocumented in this encounter Care Teams Bath Design Sales Consultant Relationship Specialty Start Date End Date Latrell Mckeon MD [address] [place] [address] PCP - General Family Medicine 08/05/23 Latrell Mckeon MD [address] [place] [address] PCP - ACO Reach 08/16/24 Siomara Fitzgerald DO [address] [place] [address] Referring Physician Neurology 05/30/24 Sugar Arenas, FABIANO [address] [place] [address] Assembler Rubber Footwear Family Medicine 01/16/25 documented as of this encounter
--- OUTSIDE RECORDS SUMMARY | 2025-02-27 11:29 | XMS_ITS | Clinical Summary ---
Author Organization [facility] Healthcare Address [address] [place] [address] Care Team Providers Care Game Developer Name Role Phone Latrell Mckeon MD Primary Care Provider [phone] Siomara Fitzgerald DO Unavailable [phone] Latrell Mckeon MD Unavailable Sugar Arenas REHABILITATION COUNSELLOR Unavailable [phone] Allergies No known active allergies Medications aspirin [...] same time Active atorvastatin (Lipitor) 40 MG tabletIndications: Dyslipidemia Take 1 tablet (40 mg) by mouth at bedtime 90 tablet 3 024 Active albuterol (2.5 MG/3ML) 0.083% nebulizer solutionIndication s:Chronic obstructive pulmonary disease, unspecified COPD type (HCC) Take 3 mL (2.5 mg) by nebulization every 4 (four) hours if needed for wheezing or shortness of breath 150 mL 3 024 Active fluticasone (Flonase) 50 MCG/ACT nasal sprayIndications:S easonal allergic rhinitis due to pollen USE 2 SPRAYS IN EACH NOSTRIL DAILY 48 mL 5 024 Active famotidine (Pepcid) 40 MG tabletIndications: Hiatal hernia with gastroesophageal reflux disease without esophagitis TAKE 1 TABLET TWICE DAILY 180 tablet 3 024 Active Multiple Vitamin (multivitamin) capsule Take 1 capsule by mouth Daily Active pantoprazole (ProtoNix) 40 MG EC tabletIndications: Hiatal hernia with gastroesophageal reflux disease without esophagitis Take 1 tablet (40 mg) by mouth in the morning and 1 tablet (40 mg) before bedtime. 180 tablet 3 024 Active Docusate Sodium (DSS) 100 MG capsule Take [...] Daily Active Spiriva HandiHaler 18 MCG inhalation capsuleIndications :Chronic obstructive pulmonary disease, unspecified COPD type (HCC) PLACE 1 CAPSULE (18 MCG) INTO INHALER AND INHALE IN THE MORNING 30 capsule 11 025 Active donepezil (Aricept) 10 MG tabletIndications: Memory loss TAKE 1 TABLET BY MOUTH EVERYDAY AT BEDTIME 90 tablet 1 025 Active methocarbamol (Robaxin) 750 MG tabletIndications: Degenerative lumbar spinal stenosis Take 1 tablet (750 mg) by mouth 4 (four) times a day as needed for muscle spasms 60 tablet 2 025 Active eszopiclone (Lunesta) 2 MG tablet Take 2 mg by mouth at bedtime Active losartan (Cozaar) 100 MG tabletIndications: Essential hypertension, benign Take 1 tablet (100 mg) by mouth Daily 30 tablet 5 025 Active baclofen (Lioresal) 10 MG tablet Take 5 mg by mouth in the morning and 5 mg before bedtime. 2024 Discontinued losartan (Cozaar) 50 MG tabletIndications: Essential hypertension, benign Take 1 tablet (50 mg) by mouth in the morning and 1 tablet (50 mg) before bedtime. 180 tablet 3 024 2024 Discontinued(R eorder) zolpidem (Ambien) 10 MG tabletIndications: Primary insomnia TAKE 1 TABLET BY MOUTH AT BEDTIME NEEDED FOR SLEEP 90 tablet 025 2024 Discontinued mirtazapine (Remeron) 7.5 MG tablet Take 7.5 mg by mouth at bedtime 025 2024 Discontinued Active Problems Problem Noted Date Diagnosed Date Former smoker 02/24/2025 Assessment & Plan (02/24/2025 4:01 PM EDT): Quit in 2011 but prior 1 PPD for 40 plus years. Check LDCT chest. Degenerative lumbar spinal stenosis 12/04/2024 Assessment & [...] Essential hypertension, benign 08/11/2023 Assessment & Plan (02/24/2025 4:00 PM EDT): BP elevated and increase losartan. Continue to monitor PRN. Assessment & Plan (08/27/2024 11:03 AM EST): [...] of both knees 08/11/2023 Assessment & Plan (02/24/2025 4:01 PM EDT): Pain stable and use OTC PRN. Assessment & Plan (05/15/2024 10:35 AM EST): Pain stable and use OTC PRN. Assessment & Plan (02/09/2024 10:31 AM EDT): Pain stable and use OTC PRN. Assessment & Plan (08/11/2023 10:22 AM EST): Pain stable and use OTC PRN. COPD (chronic obstructive pulmonary disease) 08/2023 Assessment & Plan (02/24/2025 4:00 PM EDT): SOB stable and continue albuterol nebulized PRN. Assessment & Plan (12/04/2024 2:24 PM EDT): [...] therapy. Primary insomnia 08/11/2023 Assessment & Plan (02/24/2025 4:01 PM EDT): Sleeping well with lunesta and continue. Assessment & Plan (05/15/2024 10:35 AM EST): [...] Encounters Date Type Department Care Team Description 02/26/2025 Abstract [facility] [address] [place] [address] Latrell Mckeon MD 02/24/2025 10:30 AM EDT Office Visit [facility] [address] [place] [address] Latrell Mckeon MD Essential hypertension, benign (Primary Dx); Chronic obstructive pulmonary disease, unspecified COPD type (HCC); Primary insomnia; Primary osteoarthritis of both knees; Breast cancer screening by mammogram; Former smoker 02/24/2025 Bamboo flowsheet [facility] [address] [place] [address] Latrell Mckeon MD 02/06/2025 Patient Outreach [facility] [address] [place] [address] Sugar Arenas, REHABILITATION COUNSELLOR 02/04/2025 Telephone [facility] [address] [place] [address] Latrell Mckeon MD 01/15/2025 [place] [address] [place] [address] Sugar Arenas, [facility] 01/07/2025 Patient Outreach [facility] [place] [address] [place] [address] DagobertoSugar, REHABILITATION COUNSELLOR 12/30/2024 Patient Outreach [facility] [place] [address] [place] [address] DagobertoSugar, [facility] 12/23/2024 Patient Outreach [facility] [address] [place] [address] [facility] Rafael[facility], [facility] 12/17/2024 Patient Outreach [place] [address] [place] [address] Mikala Cueto LPN 12/16/2024 Orders Only [facility] [address] [place] [address] Latrell Mckeon MD 12/13/2024 Orders Only [facility] [address] [place] [address] Latrell Mckeon MD 12/12/2024 Clinisync Result Encounter [facility] External Department Unsolicited Provider, Generic External Data 12/12/2024 Orders Only [facility] [address] [place] [address] Will Woodson NP 12/04/2024 1:30 PM EDT Office Visit [facility] [address] [place] [address] Latrell Mckeon MD Degenerative lumbar spinal stenosis (Primary Dx); Chronic obstructive pulmonary disease, unspecified COPD type (HCC) 12/04/2024 Abstract [facility] [address] [place] [address] Latrell Mckeon MD 12/03/2024 Travel 12/03/2024 Patient Outreach [facility] [address] [place] [address] Tomasa Coon MA from Last 3 Months Immunizations Immunization Administration [...] often do you attend chur ch or buddhist services? Patient declined 02/02/2024 Do you belong [...] Recorded Patient Health Questionnaire-2 Score 0 08/27/2024 [facility]at ional Health - Occupational [...] any time in the past 12 m [facility], were you homeless or living in [...] Mass Index 40.03 02/24/2025 11:00 AM EDT Plan of Treatment Upcoming Encounters Date Type Department Care Team (Late st Contact Info) Description 04/29/2025 1:15 PM EDT [facility] [address] [place] [address] Latrell Mckeon MD [address] [place] [address] Health Maintenance Due Date Last Done Comments [...] EDT Narrative 12/12/2024 10:37 [place] [address] XRay Report Signed Patient: SHEY BOSS MR#: [id number] : 1950 Acct:[id number] Age/Sex: 74 / F ADM Date: 12/12/24 Loc: RAD Attending Dr: Will Woodson NP Ordering Physician: Will Woodson NP Date of Service: 12/12/24 Procedure(s): XR hip LT min 2V Accession Number(s): [id number] cc: Will Woodson NP; Latrell Mckeon M.D. The [address] [address] Patient Name: SHEY BOSS MRN: [id number] date: 1950 Sex: F Assigned Patient Location: Current Patient Location: Accession/Order Number: [id number] Exam Date: 12/12/2024 10:32 Report Date: 12/12/2024 [...] Narvaez M.D. 12/12/2024 10:34 AM Dictation Location: [place] [address] Electronically authenticated by: [id number] Y Date: 12/12/2024 10:34 Dictated By: Juliane Narvaez M.D. Signed By: 12/12/24 1037 DD/ 1034 TD/TT: Medical Intern: Procedure Note Radiology, Radiologist, - 12/12/2024 [place] [address] XRay Report Signed Patient: SHEY BOSS LMR#: [id number] : 1950cct:[id number] Age/Sex: 74 / FADM Date: 12/12/24 Loc: RAD Attending Dr: Will Woodson NP Ordering Physician: Will Woodson NP Date of Service: 12/12/24 Procedure(s): XR hip LT min 2V Accession Number(s): [id number] cc: Will oWodson NP; Latrell Mckeon M.D. [place] [id number] Patient Name: SHEY BOSS MRN: [id number] date: 1950 Sex: F Assigned Patient Location: PM Current Patient Location: PM Accession/Order Number: [id number] Exam Date: 12/12/2024 10:32 Report Date: 12/12/2024 [...] Narvaez M.D. 12/12/2024 10:34 AM Dictation Location: [place] [address] Electronically authenticated by: [id number] Y Date: 0:34 Dictated By: Juliane Narvaez M.D. Signed By:12/12/24 1037 DD/ 1034 TD/TT: Medical Intern: Generic External Data Provider [facility] Final Result * MM TOMOSYNTHESIS SCREENING BI (11/28/2023 3:15 PM EDT) Anatomical Region Laterality Modality Other 11/28/2023 3:15 PM EDT Narrative 11/28/2023 3:16 PM EDT [address] [address] Mammography Report Signed Patient: SHEY BOSS MR#: [id number] : 1950 Acct:[id number] Age/Sex: 73 / F ADM Date: 11/28/23 Loc: MAMMO Attending Dr: Latrell Mckeon M.D. Ordering Physician: Latrell Mckeon M.D. Results: Date of Service: 11/28/23 Follow Up: Procedure(s): MM tomosynthesis screening BI Accession Number(s): [id number] cc: Latrell Mckeon M.D. Patient Name: SHEY BOSS MR#: [id number] : 1950 Exam Date: 11/28/2023 Ordering Doctor: [...] lung cancer at age 46. LOCATION: The [facility] BREAST COMPOSITION: The breasts are almost entirely [...] Signed By: 11/28/23 1516 DD/ 1515 TD/TT: Medical Intern: Procedure Note Radiology, Radiologist, MD - 11/28/2023 [place] [address] Mammography Report Signed Patient: SHEY BOSS LMR#: [id number] : 1950cct:[id number] Age/Sex: 73 / FADM Date: 11/28/23 Loc: MAMMO Attending Dr: Latrell Mckeon M.D. Ordering Physician: Latrell Mckeon M.D.Results: Date of Service: 11/28/23Follow Up: Procedure(s): MM tomosynthesis screening BI Accession Number(s): [id number] cc: Latrell Mckeon M.D. Patient Name: SHEY BOSS MR#: [id number] : 1950 Exam Date: 11/28/2023 Ordering Doctor: [...] lung cancer at age 46. LOCATION: The [facility] BREAST COMPOSITION: The breasts are almost entirely [...] M.D. Signed By:11/28/23 1516 DD/ 1515 TD/TT: Medical Intern: Latrell Mckeon MD [facility] Final Result from Last 3 Months or Most Recently Relevant to Health [place] [address] [employer] MEDICARE SUPPLEMENT Care Teams Game Developer Relationship Specialty Start Date End Date Latrell Mckeon MD [address] [place] [address] PCP - General Family Medicine 08/05/23 Latrell Mckeon MD [address] [place] [address] PCP - ACO Reach 08/16/24 Siomara Fitzgerald DO [address] [place] [address] Referring Physician Neurology 05/30/24 Sugar Arenas LSW [address] [place] [address] Colorer Family Medicine 01/16/25
--- OUTSIDE RECORDS SUMMARY | 2025-02-27 11:29 | XMS_ITS | Encounter Summary ---
Author Organization [facility] Address [address] [place] [address] Care Team Providers Care Poundmaster Name Role Phone Latrell Mckeon MD Primary Care Provider [phone] Siomara Fitzgerald DO Unavailable [phone] Latrell Mckeon MD Unavailable Sugar Arenas BELLY ROLLER Unavailable [phone] Encounter Details Date Type Department Care Team (Late st Contact Info) Description 12/16/2024 Orders Only [facility] [address] [place] [address] Latrell Mckeon MD [address] [place] [address] Social History Tobacco Use Types Packs/Day Years [...] often do you attend chur ch or tenriism services? Patient declined 02/02/2024 Do you belong [...] Recorded Patient Health Questionnaire-2 Score 0 08/27/2024 [facility] Occupat ional Health - Occupational [...] any time in the past 12 m [facility], were you homeless or living in a group home (including now)? No 02/02/2024 Comments Unknown [...] Office Visit [facility] [address] [place] [address] Latrell Mckeon MD [address] [place] [address] documented as of this encounter Procedures Procedure Name Priority Date/Time Associated Diagnosis Comments SCANNED LABS Routine 12/16/2024 2:53 PM EDT SCANNED LABS Routine 12/16/2024 1:12 PM EDT documented in this encounter Results * SCANNED LABS (12/16/2024 2:53 PM EDT) us Latrell Mckeon MD LAB CHG PERFORMABLES Final Resul t * SCANNED LABS (12/16/2024 1:12 PM EDT) Latrell Mckeon MD LAB CHG PERFORMABLES Final Resul t documented in this encounter Visit Diagnoses Not on filedocumented in this encounter Additional Health Concerns Assessment Noted Time PHQ-9 Depression Total Score: 4 08/27/19 25 10:00 AM EST documented as of this encounter Care Teams Poundmaster Relationship Specialty Start Date End Date Latrell Mckeon MD [address] [place] [address] PCP - General Family Medicine 08/05/23 Latrell Mckeon MD [address] [place] [address] PCP - ACO Reach 08/16/24 Siomara Fitzgerald DO [address] [place] [address] Referring Physician Neurology 05/30/24 Sugar Arenas, FABIANO [address] [place] [address] Record Clerk Family Medicine 01/16/25 documented as of this encounter
--- OUTSIDE RECORDS SUMMARY | 2025-02-27 11:29 | XMS_ITS | Encounter Summary ---
Author Organization [facility] Address [address] [place] [address] Care Team Providers Care Shirt Finisher Name Role Phone Latrell Mckeon MD Primary Care Provider [phone] Siomara Fitzgerald DO Unavailable [phone] Latrell Mckeon MD Unavailable Sugar Arenas WHEELCHAIR VAN OPERATOR FIRST RESPONDER Unavailable [phone] Encounter Details Date Type Department Care Team (Late Contact Info) Description 08/13/2023 [facility] [address] [place] [address] Latrell Mckeon MD [address] [place] [address] Social History Tobacco Use Types Packs/Day Years Used Date Smoking Tobacco: Former Cigarettes 1 40 1 972 - 2012 Smokeless Tobacco: Never PHQ-2 Answer Date Recorded [...] 04/29/2025 1:15 PM EDT Office Visit [facility] [address] [place] [address] Latrell Mckeon MD [address] [place] [address] documented as of this encounter Visit Diagnoses Not on filedocumented in this encounter Care Teams Shirt Finisher Relationship Specialty Start Date End Date Latrell Mckeon MD [address] [place] [address] PCP - General Family Medicine 08/05/23 Latrell Mckeon MD [address] [place] [address] PCP - ACO Reach 08/16/24 Siomara Fitzgerald DO [address] [place] [address] Referring Physician Neurology 05/30/24 Sugar Arenas, FABIANO [address] [place], [place] [address] Advertising Editor Family Medicine 01/16/25 documented as of this encounter
--- OUTSIDE RECORDS SUMMARY | 2025-02-27 11:29 | XMS_ITS | Encounter Summary ---
Author Organization [facility] Address [address] [place] [address] Care Team Providers Care Material Assembler Name Role Phone Latrell Mckeon MD Primary Care Provider [phone] Siomara Fitzgerald DO Unavailable [phone] Latrell Mckeon MD Unavailable Sugar Arenas GENERAL TECHNICIAN Unavailable [phone] Encounter Details Date Type Department Care Team (Late st Contact Info) Description 12/04/2024 Abstract [facility] [address] [place] [address] Latrell Mckeon MD [address] [place] [address] Social History Tobacco Use Types Packs/Day Years [...] often do you attend chur ch or latter-day services? Patient declined 02/02/2024 Do you belong [...] Recorded Patient Health Questionnaire-2 Score 0 08/27/2024 [facility] Occupat ional Health - Occupational Stress [...] any time in the past 12 m [facility], were you homeless or living in a senior living (including now)? No 02/02/2024 Comments Unknown Sex and Gender Information Value Date Recorded Sex Assigned at Not on file Legal Sex Female 7:08 PM EDT Gender Identity Not on file Sexual Orientation Not on file documented as of this encounter Plan of Treatment Upcoming Encounters Date Type Department Care Team (Late st Contact Info) Description 04/29/2025 1:15 PM EDT [facility] [address] [place] [address] Latrell Mckeon MD [address] [place] [address] documented as of this encounter Visit Diagnoses Not on filedocumented in this encounter Additional Health Concerns Assessment Noted Time PHQ-9 Depression Total Score: 4 08/27/19 25 10:00 AM EST documented as of this encounter Care Teams Material Assembler Relationship Specialty Start Date End Date Latrell Mckeon MD [address] [place] [address] PCP - General Family Medicine 08/05/23 Latrell Mckeon MD [address] [place] [address] PCP - ACO Reach 08/16/24 Siomara Fitzgerald DO [address] [place] [address] Referring Physician Neurology 05/30/24 Sugar Arenas, FABIANO [address], [place] [address] City Planner Family Medicine 01/16/25 documented as of this encounter
--- OUTSIDE RECORDS SUMMARY | 2025-02-27 11:29 | XMS_ITS | Encounter Summary ---
Author Organization [facility] Address [address] [place] [address] Care Team Providers Care Photographic Processor Name Role Phone Latrell Mckeon MD Primary Care Provider [phone] Siomara Fitzgerald DO Unavailable [phone] Latrell Mckeon MD Unavailable Sugar Arenas COST REDUCTION ENGINEER Unavailable [phone] Encounter Details Date Type Department Care [...] 02/02/2024 How often do you attend chur or druze services? Patient declined 02/02/2024 Do you belong to any clubs o r organizations such as religious groups, unions, fraternal or athletic groups, or [...] Recorded Patient Health Questionnaire-2 Score 0 08/11/2023 [facility]at ional [facility] - Occupational Stress Questionnaire Answer Date [...] time in the past 12 m [facility], were you homeless or living in a [...] Office Visit [facility] [address] [place] [address] Latrell Mckeon MD [address] [place] [address] documented as of this encounter Procedures Procedure [...] QTC Calculation(Bazett) : 423 ms Calculated P [place] : 32 degrees Calculated R [place] : 14 degrees Calculated T [place] : 54 degrees NORMAL SINUS RHYTHM NORMAL ECG Confirmed by MD HAKAN, HEBA ([id number]) on 07/29/2024 12:16:17 PM NAME : SHEY BOSS PID : [id number] : 1950 Gender : Female Race : ORD : [id number] Procedure Date : Jul 23 2024 12:08:10 Edit Date : Jul 29 2024 12:16:18 Diagnosis: NORMAL SINUS RHYTHM NORMAL ECG Confirmed by MD MCCLENDON HEBA ([id number]) on 07/29/2024 12:16:17 PM Test Reason : Location : 119 : A17 A17 Overread By : MD MCCLENDON HEBA Edited By : MD MCCLENDON HEBA Referred By : LISS BOYD Acquired by : SADE HA Procedure Note Radiology, Radiologist, MD - 07/29/2024 Ventricular Rate : 66 BPM Atrial Rate : 66 BPM P-R Interval : 158 ms QRS Duration : 78 ms Q-T Interval : 404 ms QTC Calculation(Bazett) : 423 ms Calculated P [place] : 32 degrees Calculated R [place] : 14 degrees Calculated T [place] : 54 degrees NORMAL SINUS RHYTHM NORMAL ECG Confirmed by MD MCCLENDON HEBA ([id number]) on 07/29/2024 12:16:17 PM NAME : SHEY BOSS PID : [id number] : 1950 Gender : Female Race : ORD : [id number] Procedure Date : Jul 23 2024 12:08:10 Edit Date : Jul 29 2024 12:16:18 Diagnosis: NORMAL SINUS RHYTHM NORMAL ECG Confirmed by MD MCCLENDON HEBA ([id number]) on 07/29/2024 12:16:17 PM Test Reason : Location : 119 : A17 A17 Overread By : MD MCCLENDON HEBA Edited By : MD MCCLENDON HEBA Referred By : LISS BOYD Acquired by : SADE HA Generic External Data Provider ECG ORDERABLES F inal Result [facility] documented in this encounter Visit Diagnoses Not on filedocumented in this encounter Care Teams Photographic Processor Relationship Specialty Start Date End Date Latrell Mckeon MD [address] [place] [address] PCP - General Family Medicine 08/05/23 Latrell Mckeon MD [address] [place] [address] PCP - ACO Reach 08/16/24 Siomara Fitzgerald DO [address] [place] [address] Referring Physician Neurology 05/30/24 Sugar Arenas, FABIANO [address] [place] [address] Wiring Inspector Family Medicine 01/16/25 documented as of this encounter
--- OUTSIDE RECORDS SUMMARY | 2025-02-27 11:29 | XMS_ITS | Encounter Summary ---
Author Organization [facility] Address [address] [place] [address] Care Team Providers Care Head Automatic Sawyer Name Role Phone Latrell Mckeon MD Primary Care Provider [phone] Siomara Fitzgerald DO Unavailable [phone] Latrell Mckeon MD Unavailable Sugar Arenas COMBER OPERATOR Unavailable [phone] Encounter Details Date Type Department Care [...] How often do you attend chur or restorationism services? Patient declined 02/02/2024 Do you belong [...] Recorded Patient Health Questionnaire-2 Score 0 08/11/2023 [facility] of Occupat ional [facility] - Occupational Stress Questionnaire Answer Date Recorded [...] time in the past [address] [facility], were you homeless or living in [...] 1:15 PM EDT Office Visit [facility] [address] [place] [address] Latrell Mckeon MD [address] [place] [address] documented as of this encounter Procedures Procedure Name Priority Date/Time Associated Diagnosis Comments XR FOOT RT MIN 3V 04/10/2024 7:2 5 AM EDT documented in this encounter Results * XR FOOT RT MIN 3V (04/10/2024 7:25 AM EDT) Anatomical Region Laterality Modality Other 04/10/2024 7:25 AM EDT Narrative 04/10/2024 7:27 AM EDT The [address] [address] XRay Report Signed Patient: SHEY BOSS MR#: [id number] : 1950 Acct:[id number] Age/Sex: 73 / F ADM Date: 04/09/24 Loc: EC Attending Dr: Marnie Sanchez D.P.M. Ordering Physician: Marnie Sanchez D.P.M. Date of Service: 04/09/24 Procedure(s): XR foot RT min 3V Accession Number(s): [id number] cc: Marnie Sanchez D.P.M.; Latrell Mckeon M.D. [place] [id number] Patient Name: SHEY BOSS MRN: [facility]:[id number] date: 1950 Sex: F Assigned Patient Location: Current Patient Location: Accession/Order Number: [id number] Exam Date: 04/09/2024 09:34 Report Date: 04/10/2024 [...] Negative. XR/XR foot RT min 3V IMPRESSION: Azxr-lp-upmccrbd osteoarthritis Electronically authenticated by: WILLARD RUSSO Date: 04/10/2024 07:25 Dictated By: Willard Russo M.D. Signed By: 04/10/24726 DD/ 4 TD/TT: Data Conversion Analyst: Procedure Note Radiology, Radiologist, MD - 04/10/2024 [place] [address] XRay Report Signed Patient: SHEY BOSS LMR#: [id number] : 1950cct:[id number] Age/Sex: 73 / FADM Date: 04/09/24 Loc: EC Attending Dr: Marnie Sanchez D.P.M. Ordering Physician: Marnie Sanchez D.P.M. Date of Service: 04/09/24 Procedure(s): XR foot RT min 3V Accession Number(s): [id number] cc: Marnie Sanchez D.P.M.; Latrell Mckeon M.D. The [place] [id number] Patient Name: SHEY BOSS MRN: [facility]:[id number] date: 1950 Sex: F Assigned Patient Location: Current Patient Location: Accession/Order Number: [id number] Exam Date: 04/09/2024 09:34 Report Date: 04/10/2024 [...] Negative. XR/XR foot RT min 3V IMPRESSION: Dnvb-aa-sjsudxyn osteoarthritis Electronically authenticated by: WILLARD RUSSO Date: 04/10/2024 07:25 Dictated By: Willard Russo M.D. Signed By:04/10/24726 DD/ 4 TD/TT: Data Conversion Analyst: Generic External Data Provider [facility] Final Result documented in this encounter Visit Diagnoses Not on filedocumented in this encounter Care Teams Head Automatic Sawyer Relationship Specialty Start Date End Date Latrell Mckeon MD [address] [place] [address] PCP - General Family Medicine 08/05/23 Latrell Mckeon MD [address] [place] [address] PCP - ACO Reach 08/16/24 Siomara Fitzgerald DO [address] [place], [place] [address] Referring Physician Neurology 05/30/24 Sugar Arenas LSW [address] [place] [address] Joint Runner Family Medicine 01/16/25 documented as of this encounter
--- OUTSIDE RECORDS SUMMARY | 2025-02-27 11:29 | XMS_ITS | Encounter Summary ---
Author Organization [facility] Address [address] [place] [address] Care Team Providers Care Film Historian Name Role Phone Latrell Mckeon MD Primary Care Provider [phone] Siomara Fitzgerald DO Unavailable [phone] Latrell Mckeon MD Unavailable Sugar Arenas COMPUTER SYSTEMS ENGINEER Unavailable [phone] Encounter Details Date Type Department Care Team (Late st Contact Info) Description 12/12/2024 Orders Only [facility] [address] [place] [address] Amalia Woodson NP [address] [place] [address] Social History Tobacco Use Types [...] often do you attend chur ch or jehovah's witness services? Patient declined 02/02/2024 Do you belong to any clubs o r organizations such as rastafarian groups, unions, fraternal or athletic groups, or [...] Recorded Patient Health Questionnaire-2 Score 0 08/27/2024 [facility] of Occupat ional [facility] - Occupational Stress Questionnaire Answer Date [...] were you homeless or living in a mcfp (including now)? No 02/02/2024 Comments Unknown Sex and Gender Information Value Date Recorded Sex Assigned at Not on file Legal Sex Female 7:08 PM EDT Gender Identity Not on file Sexual Orientation Not on file documented as of this encounter Plan of Treatment Upcoming Encounters Date Type Department Care Team (Late st Contact Info) Description 04/29/2025 1:15 PM EDT [facility] [address] [place] [address] Latrell Mckeon MD [address] [place] [address] documented as of this encounter Procedures Procedure Name Priority Date/Time Associated Diagnosis Comments XR HIP 2-3 VIEWS LEFT Routine 12/12/2024 11:07 AM EDT documented in this encounter Results * XR HIP 2-3 VIEWS LEFT (12/12/2024 11:07 AM EDT) Anatomical Region Laterality Modality Radiographic Lani ging us Amalia Woodson DIRECTOR OF REHABILITATION IMG XR PROCEDURES Final Result documented in this encounter Visit Diagnoses Not on filedocumented in this encounter Additional Health Concerns Assessment Noted Time PHQ-9 Depression Total Score: 4 08/27/19 25 10:00 AM EST documented as of this encounter Care Teams Film Historian Relationship Specialty Start Date End Date Latrell Mckeon MD [address] [place] [address] PCP - General Family Medicine 08/05/23 Latrell Mckeon MD [address] [place] [address] PCP - ACO Reach 08/16/24 Siomara Fitzgerald DO [address] [place] [address] Referring Physician Neurology 05/30/24 Sugar Arenas, FABIANO [address] [place], [place] [address] Recruitment Intern Family Medicine 01/16/25 documented as of this encounter
--- OUTSIDE RECORDS SUMMARY | 2025-02-27 11:29 | XMS_ITS | Encounter Summary ---
Author Organization [facility] Address [address] [place] [address] Care Team Providers Care Wellness Consultant Name Role Phone Latrell Mckeon MD Primary Care Provider [phone] Siomara Fitzgerald DO Unavailable [phone] Latrell Mckeon MD Unavailable Sugar Arenas SHEEP FARM MANAGER Unavailable [phone] Encounter Details Date Type Department Care [...] How often do you attend chur or episcopalian services? Patient declined 02/02/2024 Do you belong to any clubs o r organizations such as hoahaoism groups, unions, fraternal or athletic groups, or [...] Recorded Patient Health Questionnaire-2 Score 0 08/11/2023 [facility] of Occupat ional [facility] - Occupational Stress Questionnaire Answer [...] any time in the past 12 m [facility], were you homeless or living in [...] Visit [facility] [address] [place] [address] Latrell Mckeon MD [address] [place] [address] documented as of this encounter Procedures Procedure [...] soft tissues: Unremarkable. IMPRESSION: Large hiatal hernia. Vice President Payer: [facility] Transcribe Date/Time: Jul 24 2024 7:28A Dictated by : JARVIS HUGO MD This examination was interpreted and the report reviewed and electronically signed by: JARVIS HUGO MD on Jul 24 2024 7:30AM EST [id number]^AGFA_IDC^SI^ACN Procedure Note Radiology, Radiologist, - 07/24/2024 * * *Final Report* * [...] soft tissues: Unremarkable. IMPRESSION: Large hiatal hernia. Vice President Payer: [facility] Transcribe Date/Time: Jul 24 2024 7:28A Dictated by : JARVIS HUGO MD This examination was interpreted and the report reviewed and electronically signed by: JARVIS HUGO MD on Jul 24 2024 7:30AM EST [id number]^AGFA_IDC^SI^ACN us Generic External Data Provider [facility] Final Result * [facility] CONFIRM BLOOD TYPE (07/23/2024 11:47 AM EST) ABO B [facility] RH Positive [facility] 07/23/2024 11:4 7 AM EST 07/23/2024 11:47 AM EST Narrative [facility] - 07/23/2024 11:46 AM EST Specimen Type: BLOOD SPECIMEN Ordering Facility: [facility] Address: [address] [place] [address] CC MAIN BLOOD BANK CLIA [id number] [address] [place] [address] Generic External Data Provider [facility] F inal Result Performing Organization Address [facility] de Phone Number BESSIENC CC [address] [address] * [facility] TYPE AND SCREEN,30 DAY (07/23/2024 11:41 AM EST) ABO B [facility] RH Positive [facility] ANTIBODY SCREEN Negative [facility] 07/23/2024 11:4 1 AM EST 07/23/2024 11:42 AM EST Narrative [facility] - 07/23/2024 11:41 AM EST Specimen Type: BLOOD SPECIMEN Ordering Facility: [facility] Address: [address] [place] [address] CC MAIN BLOOD BANK CLIA [id number] [address] [place], [place] [address] [address] Generic External Data Provider [facility] F inal Result Performing Organization Address [facility] Co de Phone Number JARRET KHAN [address] [place] [phone] documented in this encounter Visit Diagnoses Not on filedocumented in this encounter Care Teams Wellness Consultant Relationship Specialty Start Date End Date Latrell Mckeon MD [address] [place] [address] PCP - General Family Medicine 08/05/23 Latrell Mckeon MD [address] [place] [address] PCP - ACO Reach 08/16/24 Siomara Fitzgerald DO [address] [place] [address] Referring Physician Neurology 05/30/24 Sugar Arenas, FABIANO [address] [place] [address] Elementary Principal Family Medicine 01/16/25 documented as of this encounter
--- OUTSIDE RECORDS SUMMARY | 2025-02-27 11:29 | XMS_ITS | Encounter Summary ---
Author Organization [facility] Address [address] [place] [address] Care Team Providers Care Bottom Stainer Name Role Phone Latrell Mckeon MD Primary Care Provider [phone] Siomara Fitzgerald DO Unavailable [phone] Latrell Mckeon MD Unavailable Sugar Arenas CAUSTIC OPERATOR Unavailable [phone] Encounter Details Date Type Department Care [...] How often do you attend chur or latter day services? Patient declined 02/02/2024 Do you belong [...] Recorded Patient Health Questionnaire-2 Score 0 08/11/2023 [facility] of Occupat ional [facility] - Occupational Stress Questionnaire Answer Date [...] any time in the past 12 m [facility], were you homeless or living in [...] Visit [facility] [address] [place] [address] Latrell Mckeon MD [address] [place] [address] documented as of this encounter Procedures Procedure Name Priority Date/Time Associated Diagnosis Comments MR LUMBAR SPINE WO CON 04/22/2024 1:57 PM EDT documented in this encounter Results * MR LUMBAR SPINE WO CON (04/22/2024 1:57 PM EDT) Anatomical Region Laterality Modality Other 04/22/2024 1:57 PM EDT Narrative 04/22/2024 2:00 PM EDT The [place] [id number] Magnetic Resonance Report Signed Patient: SHEY BOSS MR#: [id number] : 1950 Acct:[id number] Age/Sex: 73 / F ADM Date: 04/22/24 Loc: MRI Attending Dr: Talat Arguello M.D. Ordering Physician: Talat Arguello M.D. Date of Service: 04/22/24 Procedure(s): MR lumbar spine wo con Accession Number(s): [id number] cc: Talat Arguello M.D.; Latrell Mckeon M.D. [place] [id number] Patient Name: SHEY BOSS MRN: [id number] date: 1950 Sex: F Assigned Patient Location: MRI Current Patient Location: Accession/Order Number: [id number] Exam Date: 04/22/2024 07:45 Report Date: 04/22/2024 [...] Dictated By: Willard Russo M.D. Signed By: 04/22/24 1400 DD/ 1357 TD/TT: Journeyman Meat Cutter: Procedure Note Radiology, Radiologist, - 04/22/2024 [place] [address] Magnetic Resonance Report Signed Patient: SHEY BOSS LMR#: [id number] : 1950cct:[id number] Age/Sex: 73 / FADM Date: 04/22/24 Loc: MRI Attending Dr: Talat Arguello M.D. Ordering Physician: Talat Arguello M.D. Date of Service: 04/22/24 Procedure(s): MR lumbar spine wo con Accession Number(s): [id number] cc: Talat Arguello M.D.; Latrell Mckeon M.D. The [place] [address] Patient Name: SHEY BOSS MRN: [id number] date: 1950 Sex: F Assigned Patient Location: MRI Current Patient Location: Accession/Order Number: [id number] Exam Date: 04/22/2024 07:45 Report Date: 04/22/2024 [...] M.D. Signed By:04/22/24 1400 DD/ 1357 TD/TT: Journeyman Meat Cutter: Generic External Data Provider [facility] Final Result documented in this encounter Visit Diagnoses Not on filedocumented in this encounter Care Teams Bottom Stainer Relationship Specialty Start Date End Date Latrell Mckeon MD [address] [place] [address] PCP - General Family Medicine 08/05/23 Latrell Mckeon MD [address] [place] [address] PCP - ACO Reach 08/16/24 Siomara Fitzgerald DO [address] [place] [address] Referring Physician Neurology 05/30/24 Sugar Arenas, FABIANO [address] [place] [address] Tank Insulator Rubber Family Medicine 01/16/25 documented as of this encounter
--- OUTSIDE RECORDS SUMMARY | 2025-02-27 11:29 | XMS_ITS | Encounter Summary ---
Author Organization [facility] Address [address] [place] [address] Care Team Providers Care Parts Identification Technician Name Role Phone Latrell Mckeon MD Primary Care Provider [phone] Siomara Fitzgerald DO Unavailable [phone] Latrell Mckeon MD Unavailable Sugar Arenas IRRIGATION WORKER Unavailable [phone] Encounter Details Date Type Department Care Team (Late st Contact Info) Description 12/13/2024 Orders Only [facility] [address] [place] [address] Latrell Mckeon MD [address] [place] [address] Social History Tobacco Use Types Packs/Day Years [...] often do you attend chur ch or anabaptist services? Patient declined 02/02/2024 Do you belong to any clubs o r organizations such as buddhist groups, unions, fraternal or athletic groups, or [...] Recorded Patient Health Questionnaire-2 Score 0 08/27/2024 [facility] of Occupat ional Health - Occupational [...] any time in the past 12 m [facility], were you homeless or living in [...] Office Visit [facility] [address] [place] [address] Latrell Mckeon MD [address] [place] [address] documented as of this encounter Procedures Procedure [...] documented as of this encounter Care Teams Parts Identification Technician Relationship Specialty Start Date End Date Latrell Mckeon MD [address] [place] [address] PCP - General Family Medicine 08/05/23 Latrell Mckeon MD [address] [facility] [place] [address] PCP - ACO Reach 08/16/24 Siomara Fitzgerald DO [address] [place] [address] Referring Physician Neurology 05/30/24 Sugar Arenas, FABIANO [address] [place] [address] Professional Bondsman Family Medicine 01/16/25 documented as of this encounter
--- OUTSIDE RECORDS SUMMARY | 2025-02-27 11:29 | XMS_ITS | Encounter Summary ---
Author Organization [facility] Address [address] [place] [address] Care Team Providers Care Ceiling Cleaner Name Role Phone Latrell Mckeon MD Primary Care Provider [phone] Siomara Fitzgerald DO Unavailable [phone] Latrell Mckeon MD Unavailable Sugar Arenas MARRIAGE AND FAMILY TEACHER Unavailable [phone] Encounter Details Date Type Department Care Team (Late st Contact Info) Description 07/18/2024 Abstract [facility] [address] [place] [address] Latrell Mckeon MD [address] [place] [address] Social History Tobacco Use Types Packs/Day Years [...] often do you attend chur ch or restorationist services? Patient declined 02/02/2024 Do you belong to any clubs o r organizations such as jehovah's witness groups, unions, fraternal or athletic groups, or [...] Recorded Patient Health Questionnaire-2 Score 0 08/11/2023 [facility] of Occupat ional Health - Occupational [...] time in the past 12 m [facility], were you homeless or living [...] Office Visit [facility] [address] [place] [address] Latrell Mckeon MD [address] [place] [address] documented as of this encounter Visit Diagnoses Not on filedocumented in this encounter Care Teams Ceiling Cleaner Relationship Specialty Start Date End Date Latrell Mckeon MD [address] [place] [address] PCP - General Family Medicine 08/05/23 Latrell Mckeon MD [address] [place] [address] PCP - ACO Reach 08/16/24 Siomara Fitzgerald DO [address] [place] [address] Referring Physician Neurology 05/30/24 Sugar Arenas, FABIANO [address] [place] [address] Loom Overhauler Family Medicine 01/16/25 documented as of this encounter
--- OUTSIDE RECORDS SUMMARY | 2025-02-27 11:30 | XMS_ITS | Encounter Summary ---
Author Organization [facility] Address [address] [place] [address] Care Team Providers Care Hvac Design Mechanical Engineer Name Role Phone Latrell Mckeon MD Primary Care Provider [phone] Diomedes Matute DO Unavailable [phone] Latrell Mckeon MD Unavailable Sugar Arenas HUB BORER Unavailable [phone] Encounter Details Date Type Department Care [...] week 02/02/2024 How often do you attend [facility] health [facility] or episcopalian services? Patient declined 02/02/2024 Do you belong to any clubs o r organizations such as mandaen groups, unions, fraternal or athletic groups, or [...] Recorded Patient Health Questionnaire-2 Score 0 08/11/2023 [facility] Occupat ional [facility] - Occupational Stress Questionnaire Answer Date [...] any time in the past 12 m onths, were you homeless or living in a alf (including now)? No 02/02/2024 Comments Unknown Sex [...] Office Visit [facility] [address] [place] [address] Latrell Mckeon MD [address] [place] [address] documented as of this encounter Procedures Procedure Name Priority Date/Time Associated Diagnosis Comments MR HEAD/BRAIN WO CON 03/15/2024 12:12 PM EDT documented in this encounter Results * MR HEAD/BRAIN WO CON (03/15/2024 12:12 PM EDT) Anatomical Region Laterality Modality Other 03/15/2024 12:1 2 PM EDT Narrative 03/15/2024 12:15 [place] [address] Magnetic Resonance Report Signed Patient: SHEY BOSS MR#: [id number] : 1950 Acct:[id number] Age/Sex: 73 / F ADM Date: 03/15/24 Loc: MRI Attending Dr: Diomedes Matute D.O. Ordering Physician: Diomedes Matute D.O. Date of Service: 03/15/24 Procedure(s): MR head/brain wo con Accession Number(s): [id number] cc: Diomedes Matute D.O.; Latrell Mckeon M.D. The [place] [address] Patient Name: SHEY BOSS MRN: [facility]:[id number] date: 1950 Sex: F Assigned Patient Location: MRI Current Patient Location: MRI Accession/Order Number: [id number] Exam Date: 03/15/2024 09:50 Report Date: 03/15/2024 [...] Signed By: 03/15/24 1215 DD/ 1212 TD/TT: Perianesthesia Nurse: Procedure Note Radiology, Radiologist, MD - 03/15/2024 [place] [address] Magnetic Resonance Report Signed Patient: SHEY BOSS LMR#: [id number] : 1950cct:[id number] Age/Sex: 73 / FADM Date: 03/15/24 Loc: MRI Attending Dr: Diomedes Matute D.O. Ordering Physician: Diomedes Matute D.O. Date of Service: 03/15/24 Procedure(s): MR head/brain wo con Accession Number(s): [id number] cc: Diomedes Matute D.O.; Latrell Mckeon M.D. [place] [address] Patient Name: SHEY BOSS MRN: [facility]:[id number] date: 1950 Sex: F Assigned Patient Location: MRI Current Patient Location: MRI Accession/Order Number: [id number] Exam Date: 03/15/2024 09:50 Report Date: 03/15/2024 [...] M.D. Signed By:03/15/24 1215 DD/ 1212 TD/TT: Perianesthesia Nurse: Diomedes Matute DO [facility] Final Result documented in this encounter Visit Diagnoses Not on filedocumented in this encounter Care Teams Hvac Design Mechanical Engineer Relationship Specialty Start Date End Date Latrell Mckeon MD [address] [place] [address] PCP - General Family Medicine 08/05/23 Latrell Mckeon MD [address] [place] [address] PCP - ACO Reach 08/16/24 Diomedes Matute DO [address] [place] [address] Referring Physician Neurology 05/30/24 Sugar Arenas, FABIANO [address] [place] [address] Passenger Relations Representative Family Medicine 01/16/25 documented as of this encounter
--- OUTSIDE RECORDS SUMMARY | 2025-02-27 11:30 | XMS_ITS | Encounter Summary ---
Author Organization [facility] Address [address] [place] [address] Care Team Providers Care Certified Orthotist Practice Manager Name Role Phone Latrell Mckeon MD Primary Care Provider [phone] Siomara Fitzgerald DO Unavailable [phone] Latrell Mckeon MD Unavailable Sugar Arenas PREVENTIVE MAINTENANCE COORDINATOR Unavailable [phone] Encounter Details Date Type Department Care Team (Late st Contact Info) Description 02/24/2025 Bamboo flowsheet [facility] [address] [place] [address] Latrell Mckeon MD [address] [place] [address] Social History Tobacco Use Types Packs/Day Years [...] often do you attend chur ch or judaism services? Patient declined 02/02/2024 Do you belong [...] Recorded Patient Health Questionnaire-2 Score 0 08/27/2024 [facility] of Occupat ional Health - [...] any time in the past 12 m [facility], were you homeless or living in [...] Office Visit [facility] [address] [place] [address] Latrell Mckeon MD [address] [place] [address] documented as of this encounter Visit Diagnoses Not on filedocumented in this encounter Additional Health Concerns Assessment Noted Time PHQ-9 Depression Total Score: 4 08/27/19 25 10:00 AM EST documented as of this encounter Care Teams Certified Orthotist Practice Manager Relationship Specialty Start Date End Date Latrell Mckeon MD [address] [place] [address] PCP - General Family Medicine 08/05/23 Latrell Mckeon MD [address] [place] [address] PCP - ACO Reach 08/16/24 Siomara Fitzgerald DO [address] [place] [address] Referring Physician Neurology 05/30/24 Sugar Arenas, FABIANO [address] [place] [address] Donor Services Specialist Family Medicine 01/16/25 documented as of this encounter
--- OUTSIDE RECORDS SUMMARY | 2025-02-27 11:30 | XMS_ITS ---
Author Organization [facility] Address [address] [place] [address] Care Team Providers Care [place] Coiling Machine Setter Name Role Phone Latrell Mckeon MD Primary Care Provider [phone] Siomara Fitzgerald DO Unavailable [phone] Latrell Mckeon MD Unavailable Sugar Arenas Unavailable Chronic Care Management (CCM) Status:Enrolled (Active) Start date:01/16/2025 Enrollment date:01/16/2025 Enrollment reason:Self-enrolled Overview Please assess for Care Management needs. 01/16/25, 10:09 AM - FABIANO Wade- Patient gives verbal consent to be enrolled in CCM Program and understands there could be a bill for this service. Pt attributed to ACO Reach Case Team Name Relationship Phone Sugar STONEW(Responsible Staff) [facility] [phone] Continued Care and Services Coordination
--- OUTSIDE RECORDS SUMMARY | 2025-02-27 11:30 | XMS_ITS | Encounter Summary ---
Author Organization [facility] Address [address] [place] [address] Care Team Providers Care Ore Fielder Name Role Phone Latrell Mckeon MD Primary Care Provider [phone] Siomara Fitzgerald DO Unavailable [phone] Latrell Mckeon MD Unavailable Sugar Arenas CAPTAIN FISHING VESSEL Unavailable [phone] Encounter Details Date Type Department Care Team (Late st Contact Info) Description 03/27/2024 Orders Only [facility] [address] [place] [address] Katie Hairston MD [address] [place] [address], [address] [address] Social History Tobacco Use Types Packs/Day Years [...] often do you attend chur ch or taoist services? Patient declined 02/02/2024 Do you belong [...] Score 0 08/11/2023 [facility] - [...] Office Visit [facility] [address] [place] [address] Latrell Mckeon MD [address] [place] [phone] documented as of this encounter Procedures Procedure Name Priority Date/Time Associated Diagnosis Comments XR ESOPHAGUS-BARIUM STUDY Routine 03/26/2024 9:40 AM EDT documented in this encounter Results * XR ESOPHAGUS-BARIUM STUDY (03/26/2024 9:40 AM EDT) Anatomical Region Laterality Modality Radiographic Lani ging Katie Hairston MD IMG XR PROCEDURES Final Resu lt documented in this encounter Visit Diagnoses Not on filedocumented in this encounter Care Teams Ore Fielder Relationship Specialty Start Date End Date Latrell Mckeon MD [address] [place] [address] PCP - General Family Medicine 08/05/23 Latrell Mckeon MD [address] [place] [address] PCP - ACO Reach 08/16/24 Siomara Fitzgerald DO [address] [place], [place] [id number] Referring Physician Neurology 05/30/24 Sugar Arenas, FABIANO [address] [place] [address] Materials Associate Family Medicine 01/16/25 documented as of this encounter
--- OUTSIDE RECORDS SUMMARY | 2025-02-27 11:30 | XMS_ITS | Clinical Summary ---
Author Organization Publicates tem Address [id number] [address] [place] [address] Care Team Providers Care Quality Assurance Practice Manager Name Role Phone Latrell Mckeon MD Primary Care Provider [phone] Allergies No known active allergies Medications zolpidem (AMBIEN) 10 mg tablet Take 10 mg by mouth daily. 10/13/2020 Active famotidine (PEPCID) 40 mg tablet Take 40 mg by mouth 2 (two) times a day. 11/08/2020 Active pantoprazole (PROTONIX) 40 mg EC tablet Take 40 mg by mouth daily. Active [id number] A-calcium &mins (THERAGRAN-M) 9 mg iron-400 mcg [...] file Insurance MEDICARE [employer] Care Teams Quality Assurance Practice Manager Relationship Specialty Start Date End Date Latrell Mckeon MD PCP - General Family Medicine 11/09/20
--- OUTSIDE RECORDS SUMMARY | 2025-02-27 11:30 | XMS_ITS | Clinical Summary ---
Author Organization [facility] Address [address] [place] [address] Care Team Providers Care Plug And Mold Finisher Name Role Phone Katie Hairston MD Unavailable [phone] Latrell Mckeon MD Primary Care Provider [phone] Allergies No known active allergies Medications Vitamin [...] is lower risk 9 04/29/2024 Data from: https://www.neighborhoodatlas.medicine.[facility].edu/. Last address used for calculation [address] [facility] 04/29/2024 Comments No Sex and Gender [...] Wellness Visit 09/07/2016 Bone Density Screening 09/21/2016 Advance Directive Discussion 07/10/2024 Influenza Vaccine (#1) 2025 , 05/03/2022, 04/12/2021, Additional history exists Diabetes Screening 07/26/2027 07/26/2024, 0 07/24/2024, 07/23/2024 Pneumococcal Vaccine: 50+ Completed 2021, 05/16/2019, 01/31/2018 RSV Vaccine Completed 03/27/2023 Medical Devices Implanted Type Area Crown Perforator Operator Device Identifier Shelf Expiration Date Model / Serial / Lot Squires Thk1.65mm Ptfe 4x.5in Cardiovascular Sterile - [id number] Implanted:Qty: 1 on 07/24/2024 at [facility] Implant N/A: Abdomen BARD PERIPHERAL VASCULAR 01/04/2029 [id number] / / [id number] Procedures Procedure Name Priority Date/Time Associated Diagnosis Comments BASIC METABOLIC PANEL Routine 07/26/2024 1:13 AM EST from Last 3 Months or Most Recently Relevant to Health Maintenance Results * (ABNORMAL) BASIC METABOLIC PANEL (07/26/2024 1:13 AM EST) [facility] Glucose 112(H) 74 - 99 mg/dL 07/26/2024 2:33 AM [facility] Comment: The [place] Diabetes Association (ADA) provides [...] [place] Diabetes Association. Diabetes Care. 2016.39(Suppl 1). BUN 10 7 - 21 mg/dL 07/26/2024 2:33 AM [facility] Creatinine 0.92 0.58 - 0.96 mg/dL 07/26/2024 2:33 AM [facility] Sodium 143 136 - 144 mmol/L 07/26/2024 2:33 AM [facility] Potassium 3.4(L) 3.7 - 5.1 mmol/L 07/26/2024 2:33 AM [facility] Chloride 107 98 - 107 mmol/L 07/26/2024 2:33 AM [facility] CO2 24 22 - 30 mmol/L 07/26/2024 2:33 AM [facility] Anion Gap 12 8 - 15 mmol/L 07/26/2024 2:33 AM [facility] Calcium, Total 9.0 8.5 - 10.2 mg/dL 07/26/2024 2:33 AM [facility] Estimated Glomerular Filtration Rate 66 >=60 mL/min/1.7 3m 07/26/2024 2:33 AM [facility] Comment:Estimated Glomerular Filtration Rate (eGFR) is [...] EST 07/26/2024 1:22 AM EST us [facility] Final Result [facility] [address] [place] [address], [place] from Last 3 Months or Most Recently Relevant to Health Maintenance Insurance [facility] [place]IC[place] [address] Care Teams Plug And Mold Finisher Relationship Specialty Start Date End Date Latrell Mckeon MD [address] [place] [address] PCP - General Family Medicine 07/01/24 Katie Hairston MD [address] [place] [address] Internal Medicine 04/02/24
--- OUTSIDE RECORDS SUMMARY | 2025-02-27 11:30 | XMS_ITS | Encounter Summary ---
Author Organization [facility] Address [address] [place] [address] Care Team Providers Care Administrative Manager Name Role Phone Latrell Mckeon MD Primary Care Provider [phone] Siomara Fitzgerald DO Unavailable [phone] Latrell Mckeon MD Unavailable Sugar Arenas ELECTRICAL PROSPECTOR Unavailable [phone] Encounter Details Date Type Department Care Team (Late st Contact Info) Description 02/26/2025 Abstract [facility] [address] [place] [address] Latrell Mckeon MD [address] [place] [address] Social History Tobacco Use Types Packs/Day Years [...] often do you attend chur ch or shinto services? Patient declined 02/02/2024 Do you belong to any clubs o r organizations such as temple groups, unions, fraternal or athletic groups, or [...] Recorded Patient Health Questionnaire-2 Score 0 08/27/2024 [facility] - Occupational [...] any time in the past 12 m [facility], were you homeless or living [...] 04/29/2025 1:15 PM EDT [facility] [address] [place] [address] Latrell Mckeon MD [address] [place] [phone] documented as of this encounter Visit Diagnoses Not on filedocumented in this encounter Additional Health Concerns Assessment Noted Time PHQ-9 Depression Total Score: 4 08/27/19 25 10:00 AM EST documented as of this encounter Care Teams Administrative Manager Relationship Specialty Start Date End Date Latrell Mckeon MD [address] [place] [phone] PCP - General Family Medicine 08/05/23 Latrell Mckeon MD [address] [place] [address] PCP - ACO Reach 08/16/24 Siomara Fitzgerald DO [address] [place] [address] Referring Physician Neurology 05/30/24 Sugar Arenas, FABIANO [address] [place], [place] [phone] Respiratory Therapy Manager Family Medicine 01/16/25 documented as of this encounter
--- OUTSIDE RECORDS SUMMARY | 2025-02-27 11:43 | XMS_ITS | CCD ---
Author Organization [facility] Care Team Providers Care Flute Polisher Name Role Phone FREDY, DR CHAPARRO Attending [...] Attending Unavaila ble Pa WEBB Attending Unavailable NADERER, LATRELL Referring Unavailable Yovanny OLIVO, Dafne Talal Unavailable [phone] Diomedes Fitzgerald DO Unavailable Guero OLIVO, Latrell A Primary Care Provider Yovanny OLIVO, Dafne T Unavailable GUERO, LATRELL A Primary Care Unavailable BEFFA, XAVIER MAYFIELD Referring Unava ilable NADERER, LATRELL A Primary Care Unavailable BEFFA, XAVIER MAYFIELD Referring Unava ilable KATARZYNA SNYDER Attending Unavailable BARI CASTILLO Referring Unavailable NADERER, LATRELL A Primary Care Unavailable NADERER, LATRELL A Primary Care Unavailable BEFFA, XAVIER MAYFIELD Referring Unava ilable SARMINI, LEOS TALAL Referring Unavaila ble BEFFA, XAVIER MAYFIELD Attending Unava ilable NADERER, LATRELL A Primary Care Unavailable JAMIL DELACRUZ Referring Unavailable KATARZYNA SNYDER Referring Unavailable NADERER, LATRELL A Primary Care Unavailable BEFFA, XAVIER MAYFIELD Attending Unava ilable BEFFA, XAVIER MAYFIELD Admitting Unava ilable Naderer Latrell OLIVO Unavailable Elmer Kohli Attending Unavailable Elmer Kohli Attending Unavailable Latrell Jack MD Primary Care Provider [phone] Julio OLIVO, Erik Admit Provider Julio OLIVO, Erik Attending Provider [phone] Tra Hobson MD Attending Provider Julio OLIVO, Erik Attending Provider Julio OLIVO, Erik Other Provider Diomedes Fitzgerald DO Attending Provider Saundra OLIVO, Talat Benedict Attending Unavailable Gishannon OLIVO, Talat Benedict Attending Unavailable Gishannon OLIVO, Andlinette Benedict Attending Unavailable Giyaniqueitis , Andlinette Benedict Attending Unavailable Saundra OLIVO, Talat Benedict Attending Unavailable Saundra OLIVO, Talat Benedict Attending Unavailable Erik Kim Admitting Unavailab Tra Chew Attending Unavailable Latrell Jack Primary Care Unavailable Sugar Barragan Unavailable LATRELL JACK Attending Unavailable SANDRA ARCOS Attending Unavailable LATRELL JACK Attending Unavailable LATRELL JACK Attending Unavailable DIOMEDES FITZGERALD Attending Unavailable LATRELL JACK Referring Unavailable DIOMEDES FITZGERALD Referring Unavailable MAO MORROW Attending Unavailable LATRELL JACK Attending Unavailable SANDRA ARCOS Attending Unavailable Allergies Allergy Classification Reported Allergen(s) Allergy Type Date of Onset Reaction(s) Facility (1 source) Amino Acids Drug Allergy [facility] Repository Medications Current Medications Medication Drug Class(es) Dates Sig (Normalized) Sig (Original) acetaminophen 500 mg oral tablet (14 sources) Start: 07-26-2024 take 1 tablet by [...] daily as needed for pain HYDROcodone-acetami nophen ([place]) 5-325 MG tablet Indications: Degenerative lumbar spinal stenosis Take 1 tablet by mouth 4 (four) times a day as needed for severe pain for up to 5 days 20 tablet 12/04/2024 12/09/2024 Active aspirin 81 mg oral tablet (20 sources) Platelet Aggregation Inhibitor, Nonsteroidal Anti-inflammatory Drug Start: 02-03-2025 take 1 tablet by mouth once daily Aspirin 81 mg tablet Active 81 MG PO Daily February 03, 2025 12:00am Complies with drug therapy Start: 03-05-2021 aspirin 81 mg cap Take [...] atorvastatin (Lipitor) 40 MG tablet Indications: Dyslipidemia Take 1 tablet (40 mg) by mouth at bedtime 90 tablet 3 02/09/2024 Active Calcium (4 sources) Phosphate Binder, Calcium [...] Active docusate sodium 100 mg oral capsule (14 sources) Start: 07-26-2024 Docusate Sodiu m (DSS) 100 MG capsule Take 100 mg by mouth every 12 (twelve) hours if needed 07/26/2024 Active Start: 07-26-2024 take 1 capsule by mo uth every twelve hours as needed docusate sodium [...] 1 10/31/2024 Active Start: 02-23-2024 End: 08-27-2024 donepezil 5 mg Tab 30 EA, 0 Refill(s), TAKE 1 TABLET BY MOUTH AT BEDTIME, Refills(s) 0 Start Date: 02/23/24 Status: Ordered Repeat number: 1 eszopiclone 2 mg oral tablet (2 sources) Start: 02-03-2025 take 1 tablet by mouth at bedtime eszopiclone (Lunesta) 2 MG tablet Take 2 mg by mouth at bedtime 02/03/2025 Active famotidine 40 mg oral tablet (20 sources) Histamine-2 Receptor Antagonist Start: 02-03-2025 take 1 tablet by mouth once daily Famotidine 40 mg tablet Active 40 MG PO Daily February 03, 2025 12:00am Complies with drug therapy Start: 11-08-2020 famotidine (Pe pcid) 40 MG [...] Date: 03/03/21 Status: Ordered Repeat number: 1 fluticasone propionate 0.05 mg/actuat metered dose nasal spray (20 sources) Corticosteroid Start: 12-12-2024 Fluticasone Pr opionate 50 mcg/actuation spray,suspension Active 2 SPRAY INTRANASAL Daily December 12, 2024 12:00am Complies with drug therapy Start: 03-26-2024 take 2 spray(s) nasa l route once daily fluticasone (Flonase) 50 MCG/ACT nasal spray Indications: Seasonal allergic rhinitis due to pollen USE 2 SPRAYS IN EACH NOSTRIL DAILY 48 mL 5 03/26/2024 Active Start: 09-06-2023 fluticasone (F LONASE) 50 mcg/actuation nasal spray 2 Sprays once daily. 09/06/2023 Active Start: 09-06-2023 Flonase 0.05 m g/inh Melvin 2 spray(s), Nasal, Daily, Refill(s) 0, Dry nasal passages Start Date: 09/06/23 Status: Ordered Repeat number: 1 Start: 06-21-2023 End: 03-26-2024 take 2 spray(s) nasal route in the morning fluticasone (Flonase) 50 MCG/ACT nasal spray Administer 2 sprays into each nostril in the morning. 06/21/2023 03/26/2024 Discontinued losartan potassium 100 mg oral tablet (20 sources) Angiotensin 2 Receptor Martin Start: 02-24-2025 take 1 tablet by mouth once daily losartan (Cozaar) 100 MG tablet Indications: Essential hypertension, benign Take 1 tablet (100 mg) by mouth Daily 30 tablet 5 02/24/2025 Active Start: 06-13-2024 End: 02-24-2025 take 1 tablet by mouth in the morning losartan (Cozaar) 50 MG tablet Indications: Essential hypertension, benign Take 1 tablet (50 mg) by mouth in the morning and 1 tablet (50 mg) before bedtime. 180 tablet 3 06/13/2024 02/24/2025 Discontinued (Reorder) Start: 02-09-2024 End: 06-13-2024 take 1 tablet [...] at the same time 0 Active methocarbamol 500 mg oral tablet (11 sources) Muscle Relaxant Start: 02-03-2025 Methocarbamol 500 mg tablet Active 500 MG PO as needed February 03, 2025 12:00am Complies with drug therapy Start: 12-04-2024 End: 02-03-2025 take 1 tablet by mouth four times daily as needed for muscle spasms methocarbamol (Robaxin) 750 MG tablet Indications: Degenerative lumbar spinal stenosis Take 1 tablet (750 mg) by mouth 4 (four) times a day as needed for muscle spasms 60 tablet 2 12/04/2024 Active Start: 12-01-2024 End: 12-04-2024 methocarbamol (Robaxin) 500 MG tablet 12/01/2024 12/04/2024 Discontinued (Reorder) mirtazapine 15 mg oral tablet (6 sources) Start: 02-03-2025 take 1 tablet by mouth once daily at bedtime Mirtazapine 15 mg tablet Active 15 MG PO Daily at bedtime February 03, 2025 12:00am Complies with drug therapy Start: 12-16-2024 End: 02-24-2025 take 1 tablet by mouth at bedtime mirtazapine (Remeron) 7.5 MG tablet Take 7.5 mg by mouth at bedtime 12/16/2024 02/24/2025 Discontinued Multiple Vitamin (multivitamin) capsule (20 sources) take 1 capsule by mouth once [...] mg inhalation powder (20 sources) Anticholinergic Start: 12-12-2024 take 1 capsule by inhalation once daily Tiotropium [place] (Spiriva With Handihaler) 18 mcg capsule, w/inhalation device Active 1 CAP INHALATION Daily December 12, 2024 12:00am Complies with drug therapy Start: 10-29-2024 take 1 capsule by in halation in [...] RESPIMAT INHALATION) Inhale as instructed. Active Tiotropium [place] (Spiriva With Handihaler) 18 mcg capsule, w/inhalation device (1 source) Start: 12-12-2024 take 1 capsule by inhalation once daily Tiotropium [place] (Spiriva With Handihaler) 18 mcg capsule, w/inhalation [...] Status: Ordered take 1 capsule by mo [facility] once daily alpha tocopherol (Vitamin E) 400 units capsule Take 1 capsule by mouth 1 (one) time each day at the same time Active Vitamin E, dl, a cetate, (VITAMIN E) 400 unit capsule Take 1 capsule by mouth. Active zonisamide 50 mg oral capsule (13 sources) Anti-epileptic Agent Start: 06-05-2025 take 1 capsule by mouth twice daily Zonisamide 50 mg capsule Active 50 MG PO Twice daily December 12, 2024 12:00am Complies with drug therapy Start: 08-07-2024 take 2 capsules by m [...] ALBUTEROL INHALA TION Inhale as instructed. Active baclofen 10 mg oral tablet (19 sources) gamma-Aminobutyric Acid-ergic Agonist End: 02-24-2025 take 5 mg by mouth in the morning baclofen (Lioresal) 10 MG tablet Take 5 mg by mouth in the morning and 5 mg before bedtime. 02/24/2025 Discontinued One A Day Women's Complete (5 sources) Start: 03-03-2021 One A Day Women's Complete Oral, Daily, Refill(s) 0, Prophylaxis Start Date: 03/03/21 Status: Ordered Repeat number: 1 Start: 03-03-2021 One A Day Wome n's Complete Oral, Daily, Refill(s) 0, Prophylaxis Start Date: 03/03/21 Status: Ordered zolpidem tartrate 10 mg oral tablet (20 sources) gamma-Aminobutyric Acid-ergic Agonist Start: 07-31-2024 End: 02-24-2025 take 1 tablet by mouth at bedtime as needed for sleep zolpidem (Ambien) 10 MG tablet Indications: Primary insomnia TAKE 1 TABLET BY MOUTH AT BEDTIME NEEDED FOR SLEEP 90 tablet 10/29/2024 02/24/2025 Discontinued Start: 03-03-2021 End: 07-31-2024 take 1 tablet by mouth once daily at bedtime as needed for sleep zolpidem 12.5 mg oral ER Tab 12.5 mg = 1 tab(s), Oral, Once a day (at bedtime), PRN for sleep, Refills(s) 0 Start Date: 03/03/21 Status: Ordered Repeat number: 1 Problems Active Problems Problem Classification Problem Date [...] insomnia] Onset: 2 08-11-2023 Chronic Mood disorders (9 sources) 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 [...] (BMI) of 38.0 to 38.9 in adult ([facility])] Onset: 4 Resolved: 5 05-15-2024 Chronic [...] [Other insomnia] 04-12-2024 Chronic Residual codes; unclassified (5 sources) Insomnia 09-06-2023 Episodic Residual codes; unclassified (12 sources) Amnesia; Translations: [Other amnesia] Onset: 5 04-12-2024 Episodic Residual codes; unclassified (1 source) History of hernia repair; Translations: [Other specified postprocedural states] Onset: 5 07-24-2024 Episodic Residual codes; unclassified (1 source) Other amnesia; Translations: [Memory loss] Onset: 5 Episodic Screening and history of mental health and substance abuse codes (16 sources) Personal history of nicotine dependence; Translations: [Ex-smoker] Onset: 2 Episodic Spondylosis; intervertebral disc disorders; other back problems (17 sources) Lumbago with sciatica, left side; Translations: [...] Unclassified (5 sources) Patient encounter status 09-12-2023 Unclassified (2 sources) Call if you have any medical concerns. Unclassified (1 source) manager private will call you tomorrow, if you miss this call please call back as soon as possible. 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; Translations: [OTH SEWING DEPARTMENT SUPERVISOR CURRENT DRUG THERAPY] Onset: 02-23-2022 Episodic Other aftercare (1 source) intermediate designer (current) use of aspirin; Translations: [USP CURRENT USE OF ASPIRIN] Onset: 02-23-2022 Episodic Other aftercare (8 sources) Patient encounter status; Translations: [Other alf (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 therapy] Onset: 08-11-2023 08-11-2023 Episodic Other aftercare (20 sources) Long-term current use of drug therapy; Translations: [Other alf (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 therapy] Onset: 08-11-2023 08-11-2023 Episodic [...] DATE/TIME: 12/12/2024 15:16 EDT FREE TEXT SOURCE: Elmer Kohli DO, DO, Elmer Carrasco FINAL REPORTS Final Report [...] Locations R1: This test was performed at: [facility], [address] [place] [address], [phone] , [facility] Comment on above: Performed By: #### [id number] #### [facility] [address] [place] [id number] Cholesterol [Mass/volume] in Serum or PlasmaOrdered By: Erik Kim on 12-13-2024 Cholesterol [Mass/Vol] Cholesterol [Mass/volume] in Serum or Plasma 140-200 [facility] Comment on above: Chol less than 200 m g/dl low riskChol 201-239 mg/dl borderline riskChol 240 mg/dl and greater high risk Cholesterol [Mass/Vol] 149 mg/dL Normal 140-200 [facility] Comment on above: Chol less than 200 m g/dl low riskChol 201-239 mg/dl borderline riskChol 240 mg/dl and greater high risk Result Comment: Chol less than 200 mg/dl low risk Chol 201-239 mg/dl borderline risk Chol 240 mg/dl and greater high risk Performed By: #### T SH3 wRFLX, LIPID, [id number] #### [facility] [address] [place] [address] [place] Cholesterol in HDL [Mass/vol ume] in Serum or PlasmaOrdered By: Erik Kim on 12-13-2024 Cholesterol in HDL [Mass/Vol] Serum or plasma high density lipoprotein (HDL) cholesterol measurement [facility] Comment on above: HDL CHOL ATP-III CLA SSIFICATION Cardiovascular RiskHDL > or equal to 60 mg/dL LOWHDL < 40 mg/dL HIGH Cholesterol in HDL [Mass/Vol] 42 mg/dL Normal [facility] Comment on above: HDL CHOL ATP-III CLA SSIFICATION Cardiovascular RiskHDL > or equal to 60 mg/dL LOWHDL < 40 mg/dL HIGH Result Comment: HDL CHOL ATP-III CLASSIFICATION Cardiovascular Risk HDL > or equal to 60 mg/dL LOW HDL < 40 mg/dL HIGH Performed By: #### T SH3 wRFLX, LIPID, [id number] #### [facility] [address] [place] [id number] [place] Cholesterol in LDL Calc [Mas s/Vol]Ordered By: Erik Kim on 12-13-2024 Cholesterol in LDL [Mass/Vol] Cholesterol in LDL [Mass/volume] in Serum or Plasma by calculation 0- [facility] Comment on above: LDL ATP III CLASSIFI CATIONLDL less than 100 mg/dL OptimalLDL 100-129 mg/dL Near or above optimalLDL 130-159 mg/dL Borderline highLDL 160-189 mg/dL HighLDL greater than 189 mg/dL Very high Cholesterol in LDL [Mass/Vol] 39 mg/dL 0-100 [facility] Comment on above: LDL ATP III CLASSIFI CATIONLDL less than 100 mg/dL OptimalLDL 100-129 mg/dL Near or above optimalLDL 130-159 mg/dL Borderline highLDL 160-189 mg/dL HighLDL greater than 189 mg/dL Very high Cholesterol in VLDL Calc [Ma ss/Vol]Ordered By: Erik Kim on 12-13-2024 Cholesterol in VLDL [Mass/Vol] Cholesterol in VLDL [Mass/volume] in Serum or Plasma by calculation [facility] Cholesterol in VLDL [Mass/Vol] 67 mg/dL [facility] Lipid Panelon 12-13-2024 LDL Cholesterol,Calculate d 39 mg/dL Normal 0-100 [facility] Comment on above: Result Comment: LDL ATP III CLASSIFICATION LDL less than 100 mg/dL Optimal LDL 100-129 mg/dL Near or above optimal LDL 130-159 mg/dL Borderline high LDL 160-189 mg/dL High LDL greater than 189 mg/dL Very high Performed By: #### T SH3 wRFLX, LIPID, [id number] #### [facility] [address] Triglyceride w/Reflex 338 mg/dL High 0-149 [facility] Comment on above: Result Comment: TRIG ATP III CLASSIFICATION TRIG less than 150 mg/dL Normal TRIG 150-199 mg/dL Borderline high TRIG 200-500 mg/dL High TRIG greater than 500 mg/dL Very high Standard traceable to the Center for Disease Conrtrol and Prevention (CDC) test method. Performed By: #### T SH3 wRFLX, LIPID, [id number] #### [facility] [address] VLDL CHOLESTEROL 67 mg/dL Normal [facility] Comment on above: Performed By: #### T SH3 wRFLX, LIPID, [id number] #### [facility] [address] Serum or plasma total choles terol/high density lipoprotein (HDL) cholesterol mass ratOrdered By: Erik Kim on 12-13-2024 Cholesterol.total/Cho lesterol in HDL [Mass ratio] Serum or plasma total cholesterol/high density lipoprotein (HDL) cholesterol mass rat <5.0 [facility] Cholesterol.total/Cho lesterol in HDL [Mass ratio] 3.5 {ratio} Normal <5.0 [facility] Comment on above: Performed By: #### T SH3 wRFLX, LIPID, [id number] #### [facility] [address] [place] [id number] [place] Thyroid Stim Hormone w/Rflxo n 12-13-2024 Thyroid Stim Hormone w/Rflx 1.95 u[iU]/mL Normal 0.45-5.33 [facility] Comment on above: Performed By: #### T SH3 wRFLX, LIPID, [id number] #### [place] [id number] [facility] Thyrotropin [Units/volume] i n Serum or PlasmaOrdered By: Erik Kim on 12-13-2024 TSH Qn Thyrotropin [Units/volume] in Serum or Plasma 0.45-5.33 [facility] TSH Qn 1.95 m[IU]/L 0.45-5.33 [facility] Triglyceride [Mass/volume] i n Serum or PlasmaOrdered By: Erik Kim on 12-13-2024 Triglyceride [Mass/Vol] Triglyceride [Mass/volume] in Serum or Plasma High 0-149 [facility] Comment on above: TRIG ATP III CLASSIF ICATIONTRIG less than 150 mg/dL NormalTRIG 150-199 mg/dL Borderline highTRIG 200-500 mg/dL High TRIG greater than 500 mg/dL Very highStandard traceable to the Center for Disease Conrtrol and Prevention (CDC) test method. Triglyceride [Mass/Vol] 338 mg/dL High 0-149 [facility] Comment on above: TRIG ATP III CLASSIF ICATIONTRIG less than 150 mg/dL NormalTRIG 150-199 mg/dL Borderline highTRIG 200-500 mg/dL High TRIG greater than 500 mg/dL Very highStandard traceable to the Center for Disease Conrtrol and Prevention (CDC) test method. Vitamin D 25 Hydroxy Totalon 12-13-2024 Vitamin D 25 Hydroxy Total 26.8 ng/mL Low 30-100 [facility] Comment on above: Result Comment: FRANCESCO MIN D STATUS 25([place])VITAMIN D RANGE (ng/mL) Deficient <20 Insufficient 20 to <30 Sufficient 30 to 100 Reference: Abdi MF,Shannon LIZARRAGA, Danyel HICKS, et al. Evaluation,treatment, and prevention of vitamin D deficiency; an Endocrine Society clinical practice guideline. JCEM. 2010; 96(7):1911-30. PERFORMED BY: [facility] [address] [place] [id number] PATHOLOGIST CORPORATE FITNESS PROGRAM COORDINATOR AVRIL LEDESMA M.D. Performed By: #### T SH3 wRFLX, LIPID, [id number] #### [facility] [address] Vitamin D+Metabolites [Mass/ volume] in Serum or PlasmaOrdered By: Erik Kim on 12-13-2024 Vitamin D+Metabolites [Mass/Vol] Vitamin D+Metabolites [Mass/volume] in Serum or Plasma Low 30-100 [facility] Comment on above: VITAMIN D STATUS 25( [place])VITAMIN D RANGE (ng/mL) Deficient <20 Insufficient 20 to <30Sufficient 30 to 100Reference: Shannon Remy, Danyel HICKS, et al. Evaluation,treatment, and prevention of vitamin D deficiency; an Endocrine Society clinical practice guideline. JCEM. 2010; 96(7):1911-30. Vitamin D+Metabolites [Mass/Vol] 26.8 ng/mL Low 30-100 [facility] Comment on above: VITAMIN D STATUS 25( [place])VITAMIN D RANGE (ng/mL) Deficient <20 Insufficient 20 to <30Sufficient 30 to 100Reference: Shannon Remy, Danyel HICKS, et al. Evaluation,treatment, and prevention of vitamin D deficiency; an Endocrine Society clinical practice guideline. JCEM. 2010; 96(7):1911-30. CBC w/ Auto Diffon 5 Basophil Absolute 0.0 E9/L Normal 0.0-0.2 [facility] Comment on above: Performed By: #### 2 [id number] #### [facility] [address] [place] [address] Basophils/100 WBC (Bld) 0.3 % Normal 0.0-2.0 [facility] Comment on above: Performed By: #### 2 [id number] #### [facility] [address] [place] [address] Eos Absolute 0.2 E9/L Normal 0.0-0.5 [facility] Comment on above: Performed By: #### 2 [id number] #### [facility] [address] [place] [address] Eosinophils/100 WBC (Bld) 2.8 % Normal 0.0-8.0 [facility] Comment on above: Performed By: #### 2 [id number] #### [facility] [address] [place] [address] Erythrocyte distribution width (RBC) [Ratio] 14.7 % High 10.9-14.2 [facility] Comment on above: Performed By: #### 2 [id number] #### [facility] [address] [place] [address] Hematocrit (Bld) [Volume fraction] 40.9 % Normal 34.0-46.0 [facility] Comment on above: Performed By: #### 2 [id number] #### [facility] [address] [place] [address] Hemoglobin (Bld) [Mass/Vol] 14.1 g/dL Normal 12.0-16.0 [facility] Comment on above: Performed By: #### 2 [id number] #### [facility] [address] [place] [address] Lymph Absolute 2.0 E9/L Normal 1.0-4.0 [facility] Comment on above: Performed By: #### 2 [id number] #### [facility] [address] [place] [address] Lymphocytes/100 WBC (Bld) 24.1 % Normal 14.0-50.0 [facility] Comment on above: Performed By: #### 2 [id number] #### [facility] [address] [place] [address] MCH (RBC) [Entitic mass] 30.7 pg Normal 27.0-34.0 [facility] Comment on above: Performed By: #### 2 [id number] #### [facility] [address] [place] [address] MCHC (RBC) [Mass/Vol] 34.5 g/dL Normal 31.4-36.0 [facility] Comment on above: Performed By: #### 2 [id number] #### [facility] [address] [place] [address] MCV (RBC) [Entitic vol] 88.8 fL Normal 80.0-100.0 [facility] Comment on above: Performed By: #### 2 [id number] #### [facility] [address] [place] [address] Dickenson Absolute 0.5 E9/L Normal 0.2-1.0 [facility] Comment on above: Performed By: #### 2 [id number] #### [facility] [address] [place] [address] Monocytes/100 WBC (Bld) 6.8 % Normal 4.0-14.0 [facility] Comment on above: Performed By: #### 2 [id number] #### [facility] [address] [place] [address] Neutro Absolute 5.4 E9/L Normal 2.0-7.5 [facility] Comment on above: Performed By: #### 2 [id number] #### [facility] [address] [place] [address] Neutro Auto 66.0 % Normal 36.0-75.0 [facility] Comment on above: Performed By: #### 2 [id number] #### [facility] [address] [place] [address] Platelet 168.0 E9/L Normal 150.0-500.0 [facility] Comment on above: Performed By: #### 2 [id number] #### [facility] [address] [place] [address] Platelet mean volume (Bld) [Entitic vol] 8.0 fL Normal 6.4-10.8 [facility] Comment on above: Performed By: #### 2 [id number] #### [facility] [address] [place] [address] RBC 4.6 E12/L Normal 4.3-5.9 [facility] Comment on above: Performed By: #### 2 [id number] #### [facility] [address] [place] [address] WBC 8.1 E9/L Normal 4.0-11.0 [facility] [facility] Comment on above: Performed By: #### 2 [id number] #### [facility] [address] [place] [address] CHEMISTRYOrdered By: SYSTEM SYSTEM on 12-12-2024 Amphetamines [...] 12-12-2024 Albumin [Mass/Vol] 4.0 g/dL Normal 3.3-5.0 [facility] Comment on above: Performed By: #### 2 [id number] #### [facility] [address] [place] [address] Albumin/Globulin [Mass ratio] 1.4 {ratio} Normal 1.1-2.2 [facility] Comment on above: Performed By: #### 2 [id number] #### [facility] [address] [place] [address] Alk Phos 89 Int._Unit/L Normal 21-98 [facility] Comment on above: Performed By: #### 2 [id number] #### [facility] [address] [place] [address] ALT 20 Int._Unit/L Normal 6-46 [facility] Comment on above: Performed By: #### 2 [id number] #### [facility] [address] [place] [address] Anion gap [Moles/Vol] 11 mmol/L Normal 6-16 [facility] Comment on above: Performed By: #### 2 [id number] #### [facility] [address] [place] [address] AST 22 Int._Unit/L Normal 5-43 [facility] Comment on above: Performed By: #### 2 [id number] #### [facility] [address] [place] [address] Bili Total 0.6 mg/dL Normal 0.0-1.1 [facility] Comment on above: Performed By: #### 2 [id number] #### [facility] [address] [place] [address] BUN/Creat Ratio 24 No Units High 10-20 [facility] Comment on above: Performed By: #### 2 [id number] #### [facility] [address] [place] [address] Calcium [Mass/Vol] 9.2 mg/dL Normal 8.9-11.1 [facility] Comment on above: Performed By: #### 2 805707 #### [facility] [address] [place] [address] Chloride [Moles/Vol] 101 mmol/L Normal 101-111 [facility] Comment on above: Performed By: #### 2 [id number] #### [facility] [address] [place] [address] CO2 [Moles/Vol] 28 mmol/L Normal 21-31 [facility] Comment on above: Performed By: #### 2 [id number] #### [facility] [address] [place] [address] Creatinine [Mass/Vol] 0.9 mg/dL Normal 0.5-1.3 [facility] Comment on above: Performed By: #### 2 [id number] #### [facility] [address] [place] [address] Globulin (S) [Mass/Vol] 2.9 g/dL Normal 1.4-4.0 [facility] Comment on above: Performed By: #### 2 438925 #### [facility] [address] [place] [address] Glucose [Mass/Vol] 133 mg/dL Normal 55-199 [facility] Comment on above: Performed By: #### 2 740619 #### [facility] [address] [place] [address] Potassium [Moles/Vol] 3.5 mmol/L Normal 3.5-5.3 [facility] Comment on above: Performed By: #### 2 530669 #### [facility] [address] [place] [address] Protein [Mass/Vol] 6.9 g/dL Normal 6.0-7.8 [facility] Comment on above: Performed By: #### 2 529764 #### [facility] [address] [place] [address] Sodium [Moles/Vol] 136 mmol/L Normal 135-145 [facility] Comment on above: Performed By: #### 2 876091 #### [facility] [address] [place] [address] Urea nitrogen [Mass/Vol] 22 mg/dL High 5-21 [facility] Comment on above: Performed By: #### 2 937151 #### [facility] [address] [place] [address] ED Clinical Summaryon 2024 ED Clinical Summary ED Clinical Summary [address] [address] ED Clinical Summary Person Information Name: SHEY OBRIEN/[facility] Age: 74 Years : 1950 Sex: Female Language: Albanian PCP: LATRELL JACK MD Marital Status: Single [...] 12/12/2024 17:40:09 12/12/2024 17:40:09 12/12/2024 17:40:09 ADDRESS: [address] [place] [id number] PHYS DOC NOTES: MEDICAL INFORMATION: Prescriptions Given: Medications to Continue with No Changes Other Medications albuterol (albuterol 0.083% Inh Mralin 3 mL) 150 mL, 0 Refill(s), INHALE [...] (at bedtime). fluticasone nasal (Flonase 0.05 mg/inh Melvin) 2 Sprays Nasal Inhalation every day. losartan [...] Instructions: Follow up: DIAGNOSIS: Suicidal ideation Normal [facility] ED Note-Physicianon 12-13-19 ED Note-Physician ED Note-Physician [...] culture. MHP evaluated. Patient be placed at [address] Kim. Assessment/Plan Suicidal ideation [...] a day (at bedtime) Flonase 0.05 mg/inh Melvin, 2 spray(s), Nasal, Daily losartan 25 mg [...] (12/12/24 13:50 (more content not included)... Normal [facility] Comment on above: Result Comment: Elec tronically Signed By: Elmer Kohli DO\.br\Date and Time Signed: 12/12/24 17:26 EDT ED Patient Education Noteon 12-12-2024 ED Patient Education Note ED Patient Education Note Normal [facility] ED Patient Summaryon 025 ED Patient Summary ED Patient Summary [place] [id number] Patient Discharge Instructions Person Information Name: SHEY OBRIEN Age: 74 Years Arrival Date: 12/12/2024 13:24:04 Discharge Diagnosis: Suicidal ideation Primary Care Physician: LATRELL JACK MD Provider Information Primary Provider: Elmer Kohli DO Advanced Solicitor Patent:None The exam and treatment you received in the Emergency Department were for an urgent problem and are not intended as complete care. It is important that you follow up with a doctor, nurse practitioner, or physician???s pharmacy sales assistant for ongoing care. If your symptoms [...] opioids can be used to help relieve uddgrxfn-zy-vzuzbo pain and are often prescribed following a [...] be struggling with addiction, tell your health residential child care counselor and ask for guidance or call [facility]???S National Helpline at 0-716-084-ZQPY. h Source: [place] Department of Health and Human Services/Center for Disease Control & Prevention Amer (more content not included)... Normal [facility] Ethanolon 12-12-2024 Ethanol Lvl <10 Normal <=11 [facility] Comment on above: Performed By: #### 2 [id number] #### [facility] [address] [place] [address] HEMATOLOGYOrdered By: SYSTEM SYSTEM on 12-12-2024 Basophils/100 [...] 12-12-2024 U Amph Scr Negative Normal NEGATIVE [facility] Comment on above: Result Comment: Nega tive Cutoff: <1000 ng/mL Performed By: #### 2 106421 #### [facility] [address] [place] [address] U Jessica Scr Negative Normal NEGATIVE [facility] Comment on above: Result Comment: Nega tive Cutoff: <200 ng/mL Performed By: #### 2 755003 #### [facility] [address] [place] [address] U Benzodia Scr Negative Normal NEGATIVE [facility] Comment on above: Result Comment: Nega tive Cutoff: <200 ng/mL Performed By: #### 2 185612 #### [facility] [address] [place] [address] U Cannab Scr Negative Normal NEGATIVE [facility] Comment on above: Result Comment: Nega tive Cutoff: <50 ng/mL Performed By: #### 2 [id number] #### [facility] [address] [place] [address] U Cocaine Scr Negative Normal NEGATIVE [facility] Comment on above: Result Comment: Nega tive Cutoff: <300 ng/mL Performed By: #### 2 633795 #### [facility] [address] [place] [address] U Fentanyl Negative Normal NEGATIVE [facility] Comment on above: Result Comment: Nega tive Cutoff: <5 ng/mL These drug screen results are to be used for medical (i.e., treatment) purposes only. Unconfirmed drug screening results must not be used for non-medical purposes (e.g., employment testing, legal testing). Performed By: #### 2 [id number] #### [facility] [address] [place] [address] U Opiate Scr Negative Normal NEGATIVE [facility] Comment on above: Result Comment: Nega tive Cutoff: <300 ng/mL Performed By: #### 2 927752 #### [facility] [address] [place] [address] U PCP Scr Negative Normal NEGATIVE [facility] Comment on above: Result Comment: Nega tive Cutoff: <25 ng/mL These drug screen results are to be used for medical (i.e., treatment) purposes only. Unconfirmed drug screening results must not be used for non-medical purposes (e.g., employment testing, legal testing). Performed By: #### 2 [id number] #### [facility] [address] [place] [address] UA with Cult Rflxon 12-13-19 25 Color (U) Light-Yellow Normal Yellow [facility] Comment on above: Result Comment: Micr oscopic readings are only performed on those samples that meet specific criteria set forth by [facility]. Performed By: #### 4 [id number] #### [facility] [address] [place] [address] Glucose (U) [Mass/Vol] Negative Normal Negative [facility] Comment on above: Performed By: #### 4 [id number] #### [facility] [address] [place] [address] Ketones Ql (U) Negative Normal Negative [facility] Comment on above: Performed By: #### 4 [id number] #### [facility] [address] [place] [address] UA Blood Negative Normal Negative [facility] Comment on above: Performed By: #### 4 [id number] #### [facility] [address] [place] [address] UA Bacteria 1+ /HPF Abnormal Trace [facility] Comment on above: Performed By: #### 4 [id number] #### [facility] [address] [place] [address] UA Clarity Clear Normal Clear [facility] Comment on above: Performed By: #### 4 [id number] #### [facility] [address] [place] [address] UA Leuk Est 75 [place]/uL Abnormal Negative [facility] Comment on above: Performed By: #### 4 [id number] #### [facility] [address] [place] [address] UA Mucous Trace Normal Negative [facility] Comment on above: Performed By: #### 4 [id number] #### [facility] [address] [place] [address] UA Nitrite Negative Normal Negative [facility] Comment on above: Performed By: #### 4 [id number] #### [facility] [address] [place] [address] UA pH 5.5 Invalid Interpretation Code 5.0-9.0 [facility] Comment on above: Performed By: #### 4 [id number] #### [facility] [address] [place] [address] UA Protein Negative Normal Negative [facility] Comment on above: Performed By: #### 4 [id number] #### [facility] [address] [place] [address] UA Spec Grav 1.009 Invalid Interpretation Code 1.005-1.030 [facility] Comment on above: Performed By: #### 4 [id number] #### [facility] [address] [place] [address] UA Squam Epithelial 0-2 Invalid Interpretation Code [facility] Comment on above: Performed By: #### 4 [id number] #### [facility] [address] [place] [address] UA Urobilinogen Negative Normal Negative [facility] Comment on above: Performed By: #### 4 [id number] #### [facility] [address] [place] [address] Urobilinogen (U) [Mass/Vol] Negative Normal Negative [facility] Comment on above: Performed By: #### 4 [id number] #### [facility] [address] [place] [address] UA Spec Desc Clean Catch Normal [facility] Comment on above: Performed By: #### 4 [id number] #### [facility] [address] [place] [address] URINALYSISOrdered By: SYSTEM SYSTEM on 12-12-2024 Bacteria Auto Ql (U) 1+ /HPF Invalid Interpretation Code Trace/HPF [facility] UA Auto SS Bilirubin Ql (U) Negative Normal Negativemg/ d L FT UA Auto SS Clarity (U) Clear (12/12/24 2:18 PM) Normal Clear FT UA Auto SS Color (U) Light-Yellow 3 (12/12/24 2:18 PM) Normal Yellow FT UA Auto SS Comment on above: Interpretive Data: M icroscopic readings are only performed on those samples that meet specific criteria set forth by [facility]. Epithelial cells.squamous Auto (Urine sed) [#/Area] [...] PM) Invalid Interpretation Code 1.005 - 1.030 FT UA Auto SS Urobilinogen (U) [Mass/Vol] Negative Normal Negativemg/d L [facility] UA Auto SS URINALYSISOrdered By: Elmer Kohli on 12-12-2024 UA Spec Desc Clean Catch (12/12/24 2:18 PM) Normal [facility] UA Auto SS XR HIP LT MIN [address] [place] [address] XRay Report Signed Patient: SHEY OBRIEN MR#: [id number] : 1950 Acct:[id number] Age/Sex: 74 / F ADM Date: 12/12/24 Loc: RAD Attending Dr: Will Woodson NP Ordering Physician: Will Woodson NP Date of Service: 12/12/24 Procedure(s): XR hip LT min 2V Accession Number(s): [id number] cc: Will Woodson NP; Latrell Jack M.D. The [address] [address] Patient Name: SHEY OBRIEN MRN: [employer]:[id number] date: 1950 Sex: F Assigned Patient Location: PM Current Patient Location: Accession/Order Number: [id number] Exam Date: 12/12/2024 10:32 Report Date: 12/12/2024 [...] Narvaez M.D. 12/12/2024 10:34 AM Dictation Location: [place] [address] Electronically authenticated by: [id number] Y Date: 12/12/2024 10:34 Dictated By: Juliane Narvaez M.D. Signed By: 12/12/24 1037 DD/ 1034 TD/TT: Cutting Table Operator: [employer] Radiology, Radiologist, - 12/12/2024 [place] [address] XRay Report Signed Patient: SHEY OBRIEN MR#: [id number] : 1950 Acct:[id number] Age/Sex: 74 / F ADM Date: 12/12/24 Loc: RAD Attending Dr: Will Woodson NP Ordering Physician: Will Woodson NP Date of Service: 12/12/24 Procedure(s): XR hip LT min 2V Accession Number(s): [id number] cc: Will Woodson NP; Latrell Jack M.D. The [address] [address] Patient Name: SHEY OBRIEN MRN: [employer]:[id number] date: 1950 Sex: F Assigned Patient Location: PM Current Patient Location: Accession/Order Number: [id number] Exam Date: 12/12/2024 10:32 Report Date: 12/12/2024 [...] Narvaez M.D. 12/12/2024 10:34 AM Dictation Location: [place] [address] Electronically authenticated by: [id number] Y Date: 12/12/2024 10:34 Dictated By: Juliane Narvaez M.D. Signed By: 12/12/24 1037 DD/ 1034 TD/TT: Cutting Table Operator: [facility] Radiology Study observation (narrative) [facility] XR HIP LT MIN 2VOrdered By: Radiologist Radiology on 12-12-2024 [facility] Work Phone: eGFRon 12-12-2024 eGFR 67 mL/min/1.73 m2 Normal >=59 [facility] Comment on above: Performed By: #### 1 [id number] #### [facility] [address] [place] [address] ALL CBC WITH AUTO DIFFon BASOPHILS ABSOLUTE [...] TBH PLT 194 [facility] TBH RBC 4.11 Low [facility] TB WBC 6.8 [facility] CLINISYNC [facility] CNOVon 08-07-2024 CN Office Visit (Maximo ) SHEY OBRIEN ([id number]) 1950 F Date Time Provider Department 08/07/24 [...] APRN.CNP 08/07/2024 3:37 PM Signed [facility] Clinic Date: [...] completed prior to appointment Katarzyna Snyder, MSN, CREATIVE ARTS THERAPIST August 07, 2024 Referring Provider: BARI CASTILLO [[id number]] Allergies As of Date: 08/07/2024 (No Known Allergies) Date Reviewed: 08/07/2024 Reviewed by: Olga Lidia Blake MA - Fully Assessed Reason for Visit: Post Op [174] Primary Visit Diagnosis:Postoperativ e visit [Z (more content not included)... Normal [facility] Basic metabolic 2000 panelon 07-26-2024 Anion gap [Moles/Vol] 12 mmol/L Normal 8-15 [facility] Comment on above: Order Comment: Speci men Type: BLOOD SPECIMEN Ordering Facility: [facility] Address: [address] [place] [address] Performed By: #### 2 4321-2, HSTNT, , 2776-07 #### [facility] CLIA [id number] [address] [place] [address] [place] Calcium [Mass/Vol] 9.0 mg/dL Normal 8.5-10.[address] [facility] Comment on above: Order Comment: Speci men Type: BLOOD SPECIMEN Ordering Facility: [facility] Address: [address] [place] [address] Performed By: #### 2 4321-2, HSTNT, , 2776-07 #### [facility] CLIA [id number] [address] [place] [address] [place] Chloride [Moles/Vol] 107 mmol/L Normal 98-107 [facility] Comment on above: Order Comment: Speci men Type: BLOOD SPECIMEN Ordering Facility: [facility] Address: [address] [place] [address] Performed By: #### 2 4321-2, HSTNT, , 2776-07 #### [facility] CLIA [id number] [address] [place], [place] [id number] [place] CO2 [Moles/Vol] 24 mmol/L Normal 22-30 [facility] Comment on above: Order Comment: Speci men Type: BLOOD SPECIMEN Ordering Facility: [facility] Address: [address] [place] [address] Performed By: #### 2 4321-2, HSTNT, , 2776-07 #### [facility] CLIA [id number] [address] [place] [address] [place] Creatinine [Mass/Vol] 0.92 mg/dL Normal 0.58-0.96 [facility] Comment on above: Order Comment: Speci men Type: BLOOD SPECIMEN Ordering Facility: [facility] Address: [address] [place] [address] Performed By: #### 2 4321-2, HSTNT, , 2776-07 #### [facility] CLIA [id number] [address] [place] [address] [place] Creatinine and Glomerular filtration rate.predicted panel (S/P/Bld) 66 mL/min/1.73m??? Normal >=60 [facility] Comment on above: Order Comment: Speci men Type: BLOOD SPECIMEN Ordering Facility: [facility] Address: [address] [place] [address] Result Comment: Ira mated Glomerular Filtration Rate [...] #### 2 4321-2, HSTNT, , 2776-07 #### [facility] CLIA [id number] [address] [place] [address] [place] Glucose [Mass/Vol] 112 mg/dL High 74-[address] [facility] Comment on above: Order Comment: Speci men Type: BLOOD SPECIMEN Ordering Facility: [facility] Address: [address] [place] [address] Result Comment: The [place] Diabetes Association (ADA) provides guidance for cutoff [...] Standards of Medical Care in Diabetes 2016, [place] Diabetes Association. Diabetes Care. 2016.39(Suppl 1). Performed By: #### 2 4321-2, HSTNT, , 2776-07 #### [facility] CLIA [id number] [address] [place] [address] [place] Potassium [Moles/Vol] 3.4 mmol/L Low 3.7-5.1 [facility] Comment on above: Order Comment: Speci men Type: BLOOD SPECIMEN Ordering Facility: [facility] Address: [address] [place] [address] Performed By: #### 2 4321-2, HSTNT, , 2776-07 #### [facility] CLIA [id number] [address] [place] [address] [place] Sodium [Moles/Vol] 143 mmol/L Normal 136-[address] [facility] Comment on above: Order Comment: Speci men Type: BLOOD SPECIMEN Ordering Facility: [facility] Address: [address] [place] [address] Performed By: #### 2 4321-2, HSTNT, , 2776-07 #### [facility] CLIA [id number] [address] [place] [address] [place] Urea nitrogen [Mass/Vol] 10 mg/dL Normal 7-21 [facility] Comment on above: Order Comment: Speci men Type: BLOOD SPECIMEN Ordering Facility: [facility] Address: [address] [place] [address] Performed By: #### 2 4321-2, HSTNT, , 2776-07 #### [facility] CLIA [id number] [address] [place] [address] [place] CASE MANAGEMon 07-26-2024 CASE MANAGEM HNO ID: [id number] Author: KRISTIE DIAZ, ? Service: ? Author Type: ? Type: Care Mgt Progress Note Filed: 07/26/2024 11:58 Note Text: CARE MANAGEMENT PROGRESS NOTE SERVICE DATE: 07/26/2024 SERVICE TIME: 11:57 AM LOS: 2 days IMM Follow Up Copy Given: Yes Copy given to:: Patient Method: In Person SIGNATURE: Kristie Diaz CMA PATIENT NAME: Shey Obrien DATE: July 26, 2024 TIME: 11:57 AM Normal [facility] CBC W Auto Differential pane l (Bld)on 07-26-2024 Basophils (Bld) [#/Vol] 10*3/uL Normal <0.11 [facility] Comment on above: Order Comment: Speci men Type: BLOOD SPECIMEN Ordering Facility: [facility] Address: [address] [place] [address] Performed By: #### 2 4321-2, HSTNT, , 2776-07 #### [facility] CLIA [id number] [address] [place] [address] [place] Basophils/100 WBC (Bld) 0.3 % Normal [facility] Comment on above: Order Comment: Speci men Type: BLOOD SPECIMEN Ordering Facility: [facility] Address: [address] [place] [address] Performed By: #### 2 4321-2, HSTNT, , 2776-07 #### [facility] CLIA [id number] [address] [id number] [address] [place] Differential cell count method Nom (Bld) Auto Normal [facility] Comment on above: Order Comment: Speci men Type: BLOOD SPECIMEN Ordering Facility: [facility] Address: [address] [place] [address] Performed By: #### 2 4321-2, HSTNT, , 2776-07 #### [facility] CLIA [id number] [address] [place] [address] [place] Eosinophils (Bld) [#/Vol] 0.08 10*3/uL Normal <0.46 [facility] Comment on above: Order Comment: Speci men Type: BLOOD SPECIMEN Ordering Facility: [facility] Address: [address] [place] [address] Performed By: #### 2 4321-2, HSTNT, , 2776-07 #### [facility] CLIA [id number] [address] [place] [address] [place] Eosinophils/100 WBC (Bld) 1.3 % Normal [facility] Comment on above: Order Comment: Speci men Type: BLOOD SPECIMEN Ordering Facility: [facility] Address: [address] [place] [address] Performed By: #### 2 4321-2, HSTNT, , 2776-07 #### [facility] CLIA [id number] [address] [place] [address] [place] Erythrocyte distribution width (RBC) [Ratio] 13.9 % Normal 11.5-15.0 [facility] Comment on above: Order Comment: Speci men Type: BLOOD SPECIMEN Ordering Facility: [facility] Address: [address] [place] [address] Performed By: #### 2 4321-2, HSTNT, , 2776-07 #### [facility] CLIA [id number] [address] [place] [address] [place] Hematocrit (Bld) [Volume fraction] 35.1 % Low 36.0-46.0 [facility] Comment on above: Order Comment: Speci men Type: BLOOD SPECIMEN Ordering Facility: [facility] Address: [address] [place] [address] Performed By: #### 2 4321-2, HSTNT, , 2776-07 #### [facility] CLIA [id number] [address] [place] [address] [place] Hemoglobin (Bld) [Mass/Vol] 12.2 g/dL Normal 11.5-15.5 [facility] Comment on above: Order Comment: Speci men Type: BLOOD SPECIMEN Ordering Facility: [facility] Address: [address] [place] [address] Performed By: #### 2 4321-2, HSTNT, , 2776-07 #### [facility] CLIA [id number] [address] [place] [address] [place] Immature granulocytes (Bld) [#/Vol] 0.04 10*3/uL Normal <0.10 [facility] Comment on above: Order Comment: Speci men Type: BLOOD SPECIMEN Ordering Facility: [facility] Address: [address] [place] [address] Performed By: #### 2 4321-2, HSTNT, , 2776-07 #### [facility] CLIA [id number] [address] [place] [address] [place] Immature granulocytes/100 WBC (Bld) 0.7 % Normal [facility] Comment on above: Order Comment: Speci men Type: BLOOD SPECIMEN Ordering Facility: [facility] Address: [address] [place] [address] Performed By: #### 2 4321-2, HSTNT, , 2776-07 #### [facility] CLIA [id number] [address] [place] [address] [place] Lymphocytes (Bld) [#/Vol] 1.90 10*3/uL Normal 1.00-4.00 [facility] Comment on above: Order Comment: Speci men Type: BLOOD SPECIMEN Ordering Facility: [facility] Address: [address] [place] [address] Performed By: #### 2 4321-2, HSTNT, , 2776- #### [facility] CLIA [id number] [address] [place] [address] [place] Lymphocytes/100 WBC (Bld) 30.9 % Normal [facility] Comment on above: Order Comment: Speci men Type: BLOOD SPECIMEN Ordering Facility: [facility] Address: [address] [place] [address] Performed By: #### 2 4321-2, HSTNT, , 2776- #### [facility] CLIA [id number] [address] [place] [address] [place] MCH (RBC) [Entitic mass] 32.9 pg Normal 26.0-34.0 [facility] Comment on above: Order Comment: Speci men Type: BLOOD SPECIMEN Ordering Facility: [facility] Address: [address] [place] [address] Performed By: #### 2 4321-2, HSTNT, , 2776- #### [facility] CLIA [id number] [address] [place] [address] [place] MCHC (RBC) [Mass/Vol] 34.8 g/dL Normal 30.5-36.0 [facility] Comment on above: Order Comment: Speci men Type: BLOOD SPECIMEN Ordering Facility: [facility] Address: [address] [place] [address] Performed By: #### 2 4321-2, HSTNT, , 2776- #### [facility] CLIA [id number] [address] [id number] [address] [place] MCV (RBC) [Entitic vol] 94.6 fL Normal 80.0-100.0 [facility] Comment on above: Order Comment: Speci men Type: BLOOD SPECIMEN Ordering Facility: [facility] Address: [address] [place] [address] Performed By: #### 2 4321-2, HSTNT, , 2776- #### [facility] CLIA [id number] [address] [place] [address] [place] Monocytes (Bld) [#/Vol] 0.46 10*3/uL Normal <0.87 [facility] Comment on above: Order Comment: Speci men Type: BLOOD SPECIMEN Ordering Facility: [facility] Address: [address] [place] [address] Performed By: #### 2 4321-2, HSTNT, , 2776-07 #### [facility] CLIA [id number] [address] [place] [address] [place] Monocytes/100 WBC (Bld) 7.5 % Normal [facility] Comment on above: Order Comment: Speci men Type: BLOOD SPECIMEN Ordering Facility: [facility] Address: [address] [place] [address] Performed By: #### 2 4321-2, HSTNT, , 2776-07 #### [facility] CLIA [id number] [address] [place] [address] [place] Neutrophils (Bld) [#/Vol] 3.64 10*3/uL Normal 1.45-7.50 [facility] Comment on above: Order Comment: Speci men Type: BLOOD SPECIMEN Ordering Facility: [facility] Address: [address] [place] [address] Performed By: #### 2 4321-2, HSTNT, , 2776- #### [facility] CLIA [id number] [address] [place] [address] [place] Neutrophils/100 WBC (Bld) 59.3 % Normal [facility] Comment on above: Order Comment: Speci men Type: BLOOD SPECIMEN Ordering Facility: [facility] Address: [address] [place] [address] Performed By: #### 2 4321-2, HSTNT, , 2776- #### [facility] CLIA [id number] [address] [place] [address] [place] Nucleated RBC (Bld) [#/Vol] 10*3/uL Normal <0.01 [facility] Comment on above: Order Comment: Speci men Type: BLOOD SPECIMEN Ordering Facility: [facility] Address: [address] [place] [address] Performed By: #### 2 4321-2, HSTNT, , 2776-07 #### [facility] CLIA [id number] [address] [place] [address] [place] Nucleated RBC/100 WBC (Bld) [Ratio] 0.0 /100 WBC Normal [facility] Comment on above: Order Comment: Speci men Type: BLOOD SPECIMEN Ordering Facility: [facility] Address: [address] [place] [address] Performed By: #### 2 4321-2, HSTNT, , 2776-07 #### [facility] CLIA [id number] [address] [place] [address] [place] Platelet mean volume (Bld) [Entitic vol] 9.9 fL Normal 9.0-12.7 [facility] Comment on above: Order Comment: Speci men Type: BLOOD SPECIMEN Ordering Facility: [facility] Address: [address] [place] [address] Performed By: #### 2 4321-2, HSTNT, , 2776- #### [facility] CLIA [id number] [address] [place] [address] [place] Platelets (Bld) [#/Vol] 143 10*3/uL Low 150-400 [facility] Comment on above: Order Comment: Speci men Type: BLOOD SPECIMEN Ordering Facility: [facility] Address: [address] [place] [address] Performed By: #### 2 4321-2, HSTNT, 85021-4, 2776- #### [facility] CLIA [id number] [address] [place] [address] [place] RBC (Bld) [#/Vol] 3.71 10*6/uL Low 3.90-5.20 [facility] Comment on above: Order Comment: Speci men Type: BLOOD SPECIMEN Ordering Facility: [facility] Address: [address] [place] [address] Performed By: #### 2 4321-2, HSTNT, , 2776- #### [facility] CLIA [id number] [address] [place] [address] [place] WBC (Bld) [#/Vol] 6.14 10*3/uL Normal 3.70-11.00 [facility] Comment on above: Order Comment: Speci men Type: BLOOD SPECIMEN Ordering Facility: [facility] Address: [address] [place] [address] Performed By: #### 2 4321-2, HSTNT, , 2776- #### [facility] CLIA [id number] [address] [place] [address] [place] CNCOon 07-26-2024 CNCO Letter Text Normal [facility] CNDSon 07-26-2024 CNDS HNO ID: [id number] Author: KASSY VERDE APRN.CREATIVE ARTS THERAPIST Service: General Surgery Author Type: Nurse Practitioner [...] IV access Intubation for surgery Anesthesia administration [facility]: Shey Obrien is a 73-year-old female with a PMHx of COPD, former smoker, EDWIN, HTN, GERD, dyslipidemia, TIA, memory loss, chronic back pain and insomnia who presented on 07/24/2024 for a paraesophageal hernia repair with Dr. Boyd. See operative report for details. She recovered in the PACU and transferred to the [facility] for the remainder of her [...] know (more content not included)... Normal [facility] Magnesium SerPl-mCncon 07-26 Magnesium [Mass/Vol] 2.0 mg/dL Normal 1.7-2.3 [facility] Comment on above: Order Comment: Speci men Type: BLOOD SPECIMEN Ordering Facility: [facility] Address: [address] [place] [address] Performed By: #### 2 4321-2, HSTNT, 11240-2, 2777-1 #### [facility] CLIA [id number] [address] [place] [address] [place] PT EDon 07-26-2024 PT ED HNO ID: [id number] Author: NOREEN RODNEY DTR Service: Nutrition Therapy Author Type: Scaffolder Type: Patient Education Filed: 07/26/2024 14:04 Note [...] 2024 TIME: 2:04 PM PAGER: Normal [facility] Phosphate SerPl-mCncon 07-26 Phosphate [Mass/Vol] 2.5 mg/dL Low 2.7-4.8 [facility] Comment on above: Order Comment: Speci izaiah Type: BLOOD SPECIMEN Ordering Facility: [facility] Address: [address] [place] [address] Performed By: #### 2 4321-2, HSTNT, 19552-8, 277-1 #### [facility] CLIA [id number] [address] [place] [address] [place] HIGH SENSITIVITY TROPONIN To n 07-25-2024 Troponin T.cardiac High sensitivity method [Mass/Vol] 12 ng/L High <12 [facility] Comment on above: Order Comment: Fabiola bliss Type: BLOOD SPECIMEN Ordering Facility: [facility] Address: [address] [place] [address] Performed By: #### 2 4321-2, HSTNT, 95073-6, 277-1 #### [facility] CLIA [id number] [address] [place] [address] [place] XR UPPER GI [...] (min:sec). Air kerma: 38.9 mGy. RESULT: Preliminary coffee machine technician: Gastric distention. No dilated bowel in the [...] ESOPHAGEAL TRANSIT, LIKELY RELATED TO POSTOPERATIVE EDEMA. 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 ANES POSTPROC EVALon 025 ANES POSTPROC EVAL HNO ID: [id number] Author: FLOR SNOW MD Service: ? Author Type: Physician Type: Anesthesia Postprocedure Evaluation Filed: 07/24/2024 15:38 Note Text: POST ANESTHESIA EVALUATION NOTE : 1950 Procedure Summary Date: 07/24/24 [address]esthesia Start: 1055 Anesthesia Stop: 1430 [...] of care. Anesthesia Observations No Documentation SIGNATURE: Folr Snow MD PATIENT NAME: Shey Obrien DATE: July 24, 2024 TIME: 3:38 PM CSN: [id number] Normal [facility] ANES PRE-OPon 07-24-2024 ANES PRE-OP HNO ID: [id number] Author: FLOR SNOW MD Service: ? Author [...] July 24, 2024 TIME: 9:15 AM CSN: [id number] Normal [facility] BRIEF OP NOTon 07-24-2024 BRIEF OP NOT HNO ID: [id number] Author: YAN MOSER, ? Service: General Surgery Author Type: Physician Type: Brief Op Note Filed: 07/24/2024 14:16 Note Text: BRIEF OPERATIVE / PROCEDURE NOTE LOG ID: [id number] SURGERY/PROCEDURE DATE: 07/24/2024 INCISION/PROCEDURE START TIME: 11:37 AM INCISION CLOSE/PROCEDURE END TIME: 2:12 PM SURGEON(S)/PROCEDURALI ST(S) AND APPRENTICE ARCHITECT(S): Surgeons and Role: * Xavier Boyd MD [...] 24, 2024 TIME: 2:15 PM PAGER/CONTACT #: [phone] [facility] Basic metabolic 2000 panelon 07-24-2024 Anion gap [Moles/Vol] 15 mmol/L Normal 8-15 [facility] Comment on above: Order Comment: Speci men Type: BLOOD SPECIMEN Ordering Facility: [facility] Address: [address] [place] [address] Performed By: #### 2 4321-2, HSTNT, , 2776- #### [facility] CLIA [id number] [address] [place] [address] [place] Calcium [Mass/Vol] 9.3 mg/dL Normal 8.5-10.[address] [facility] Comment on above: Order Comment: Speci men Type: BLOOD SPECIMEN Ordering Facility: [facility] Address: [address] [place] [address] Performed By: #### 2 4321-2, HSTNT, , 2776-07 #### [facility] CLIA [id number] [address] [place] [address] [place] Chloride [Moles/Vol] 105 mmol/L Normal 98-107 [facility] Comment on above: Order Comment: Speci men Type: BLOOD SPECIMEN Ordering Facility: [facility] Address: [address] [place] [address] Performed By: #### 2 4321-2, HSTNT, , 2776- #### [facility] CLIA [id number] [address] [place] [address] [place] CO2 [Moles/Vol] 21 mmol/L Low 22-30 [facility] Comment on above: Order Comment: Speci men Type: BLOOD SPECIMEN Ordering Facility: [facility] Address: [address] [place] [address] Performed By: #### 2 4321-2, HSTNT, , 2776- #### [facility] CLIA [id number] [address] [id number] [address] [place] Creatinine [Mass/Vol] 0.83 mg/dL Normal 0.58-0.96 [facility] Comment on above: Order Comment: Fabiola bliss Type: BLOOD SPECIMEN Ordering Facility: [facility] Address: [address] [place] [address] Performed By: #### 2 4321-2, HSTNT, , 2776- #### [facility] CLIA [id number] [address] [place] [address] [place] Creatinine and Glomerular filtration rate.predicted panel (S/P/Bld) 75 mL/min/1.73m??? Normal >=60 [facility] Comment on above: Order Comment: Fabiola bliss Type: BLOOD SPECIMEN Ordering Facility: [facility] Address: [address] [place] [address] Result Comment: Ira mated Glomerular Filtration Rate [...] #### 2 4321-2, HSTNT, , 2776-07 #### [facility] CLIA [id number] [address] [place] [address] [place] Glucose [Mass/Vol] 171 mg/dL High 74-[address] [facility] Comment on above: Order Comment: Fabiola bliss Type: BLOOD SPECIMEN Ordering Facility: [facility] Address: [address] [place] [address] Result Comment: The [place] Diabetes Association (ADA) provides guidance for cutoff [...] Standards of Medical Care in Diabetes 2016, [place] [employer]. Diabetes Care. 2016.39(Suppl 1). Performed By: #### 2 4321-2, HSTNT, , 2776-07 #### [facility] CLIA [id number] [address] [place] [address] [place] Potassium [Moles/Vol] 4.0 mmol/L Normal 3.7-5.1 [facility] Comment on above: Order Comment: Speci men Type: BLOOD SPECIMEN Ordering Facility: [facility] Address: [address] [place] [address] Performed By: #### 2 4321-2, HSTNT, , 2776-07 #### [facility] CLIA [id number] [address] [place] [address] [place] Sodium [Moles/Vol] 141 mmol/L Normal 136-[address] [facility] Comment on above: Order Comment: Speci men Type: BLOOD SPECIMEN Ordering Facility: [facility] Address: [address] [place] [address] Performed By: #### 2 4321-2, HSTNT, , 2776-07 #### [facility] CLIA [id number] [address] [place] [address] [place] Urea nitrogen [Mass/Vol] 10 mg/dL Normal 7-21 [facility] Comment on above: Order Comment: Speci men Type: BLOOD SPECIMEN Ordering Facility: [facility] Address: [address] [place] [address] Performed By: #### 2 4321-2, HSTNT, , 2776-07 #### [facility] CLIA [id number] [address] [place] [address] [place] CBC W Auto Differential pane l (Bld)on 07-24-2024 Basophils (Bld) [#/Vol] 10*3/uL Normal <0.11 [facility] Comment on above: Order Comment: Speci men Type: BLOOD SPECIMEN Ordering Facility: [facility] Address: [address] [place] [address] Performed By: #### 5 7021-8 #### [facility] CLIA [id number] [address] [place] [address] [place] Basophils/100 WBC (Bld) 0.3 % Normal [facility] Comment on above: Order Comment: Speci men Type: BLOOD SPECIMEN Ordering Facility: [facility] Address: [address] [place] [address] Performed By: #### 5 7021-8 #### [facility] CLIA [id number] [address] [place] [address] [place] Differential cell count method Nom (Bld) Auto Normal [facility] Comment on above: Order Comment: Speci men Type: BLOOD SPECIMEN Ordering Facility: [facility] Address: [address] [place] [address] Performed By: #### 5 7021-8 #### [facility] CLIA [id number] [address] [place] [address] [place] Eosinophils (Bld) [#/Vol] 10*3/uL Normal <0.46 [facility] Comment on above: Order Comment: Speci men Type: BLOOD SPECIMEN Ordering Facility: [facility] Address: [address] [place] [address] Performed By: #### 5 7021-8 #### [facility] CLIA [id number] [address] [place] [address] [place] Eosinophils/100 WBC (Bld) 0.0 % Normal [facility] Comment on above: Order Comment: Speci men Type: BLOOD SPECIMEN Ordering Facility: [facility] Address: [address] [place] [address] Performed By: #### 5 7021-8 #### [facility] CLIA [id number] [address] [place] [address] [place] Erythrocyte distribution width (RBC) [Ratio] 13.9 % Normal 11.5-15.0 [facility] Comment on above: Order Comment: Speci men Type: BLOOD SPECIMEN Ordering Facility: [facility] Address: [address] [place] [address] Performed By: #### 5 7021-8 #### [facility] CLIA [id number] [address] [place] [address] [place] Hematocrit (Bld) [Volume fraction] 38.8 % Normal 36.0-46.0 [facility] Comment on above: Order Comment: Speci men Type: BLOOD SPECIMEN Ordering Facility: [facility] Address: [address] [place] [address] Performed By: #### 5 7021-8 #### [facility] CLIA [id number] [address] [place] [address] [place] Hemoglobin (Bld) [Mass/Vol] 13.4 g/dL Normal 11.5-15.5 [facility] Comment on above: Order Comment: Speci men Type: BLOOD SPECIMEN Ordering Facility: [facility] Address: [address] [place] [address] Performed By: #### 5 7021-8 #### [facility] CLIA [id number] [address] [place] [address] [place] Immature granulocytes (Bld) [#/Vol] 10*3/uL Normal <0.10 [facility] Comment on above: Order Comment: Speci men Type: BLOOD SPECIMEN Ordering Facility: [facility] Address: [address] [place] [address] Performed By: #### 5 7021-8 #### [facility] CLIA [id number] [address] [place] [address] [place] Immature granulocytes/100 WBC (Bld) 0.3 % Normal [facility] Comment on above: Order Comment: Speci men Type: BLOOD SPECIMEN Ordering Facility: [facility] Address: [address] [place] [address] Performed By: #### 5 7021-8 #### [facility] CLIA [id number] [address] [place] [address] [place] Lymphocytes (Bld) [#/Vol] 0.48 10*3/uL Low 1.00-4.00 [facility] Comment on above: Order Comment: Speci men Type: BLOOD SPECIMEN Ordering Facility: [facility] Address: [address] [place] [address] Performed By: #### 5 7021-8 #### [facility] CLIA [id number] [address] [place] [address] [place] Lymphocytes/100 WBC (Bld) 6.7 % Normal [facility] Comment on above: Order Comment: Speci men Type: BLOOD SPECIMEN Ordering Facility: [facility] Address: [address] [place] [address] Performed By: #### 5 7021-8 #### [facility] CLIA [id number] [address] [place] [address] [place] MCH (RBC) [Entitic mass] 32.5 pg Normal 26.0-34.0 [facility] Comment on above: Order Comment: Speci men Type: BLOOD SPECIMEN Ordering Facility: [facility] Address: [address] [place] [address] Performed By: #### 5 7021-8 #### [facility] CLIA [id number] [address] [place] [address] [place] MCHC (RBC) [Mass/Vol] 34.5 g/dL Normal 30.5-36.0 [facility] Comment on above: Order Comment: Speci men Type: BLOOD SPECIMEN Ordering Facility: [facility] Address: [address] [place] [address] Performed By: #### 5 7021-8 #### [facility] CLIA [id number] [address] [place] [address] [place] MCV (RBC) [Entitic vol] 94.2 fL Normal 80.0-100.0 [facility] Comment on above: Order Comment: Speci men Type: BLOOD SPECIMEN Ordering Facility: [facility] Address: [address] [place] [address] Performed By: #### 5 7021-8 #### [facility] CLIA [id number] [address] [place] [address] [place] Monocytes (Bld) [#/Vol] 0.23 10*3/uL Normal <0.87 [facility] Comment on above: Order Comment: Speci men Type: BLOOD SPECIMEN Ordering Facility: [facility] Address: [address] [place] [address] Performed By: #### 5 7021-8 #### [facility] CLIA [id number] [address] [place] [address] [place] Monocytes/100 WBC (Bld) 3.2 % Normal [facility] Comment on above: Order Comment: Speci men Type: BLOOD SPECIMEN Ordering Facility: [facility] Address: [address] [place] [address] Performed By: #### 5 7021-8 #### [facility] CLIA [id number] [address] [place] [address] [place] Neutrophils (Bld) [#/Vol] 6.43 10*3/uL Normal 1.45-7.50 [facility] Comment on above: Order Comment: Speci men Type: BLOOD SPECIMEN Ordering Facility: [facility] Address: [address] [place] [address] Performed By: #### 5 7021-8 #### [facility] CLIA [id number] [address] [place] [address] [place] Neutrophils/100 WBC (Bld) 89.5 % Normal [facility] Comment on above: Order Comment: Speci men Type: BLOOD SPECIMEN Ordering Facility: [facility] Address: [address] [place] [address] Performed By: #### 5 7021-8 #### [facility] CLIA [id number] [address] [place] [address] [place] Nucleated RBC (Bld) [#/Vol] 10*3/uL Normal <0.01 [facility] Comment on above: Order Comment: Speci men Type: BLOOD SPECIMEN Ordering Facility: [facility] Address: [address] [place] [address] Performed By: #### 5 7021-8 #### [facility] CLIA [id number] [address] [place] [address] [place] Nucleated RBC/100 WBC (Bld) [Ratio] 0.0 /100 WBC Normal [facility] Comment on above: Order Comment: Speci men Type: BLOOD SPECIMEN Ordering Facility: [facility] Address: [address] [place] [address] Performed By: #### 5 7021-8 #### [facility] CLIA [id number] [address] [place] [address] [place] Platelet mean volume (Bld) [Entitic vol] 10.0 fL Normal 9.0-12.7 [facility] Comment on above: Order Comment: Speci men Type: BLOOD SPECIMEN Ordering Facility: [facility] Address: [address] [place] [address] Performed By: #### 5 7021-8 #### [facility] CLIA [id number] [address] [place] [address] [place] Platelets (Bld) [#/Vol] 144 10*3/uL Low 150-400 [facility] Comment on above: Order Comment: Speci men Type: BLOOD SPECIMEN Ordering Facility: [facility] Address: [address] [place] [address] Performed By: #### 5 7021-8 #### [facility] CLIA [id number] [address] [place] [address] [place] RBC (Bld) [#/Vol] 4.12 10*6/uL Normal 3.90-5.20 [facility] Comment on above: Order Comment: Speci men Type: BLOOD SPECIMEN Ordering Facility: [facility] Address: [address] [place] [address] Performed By: #### 5 7021-8 #### [facility] CLIA [id number] [address] [place] [address] [place] WBC (Bld) [#/Vol] 7.18 10*3/uL Normal 3.70-11.00 [facility] Comment on above: Order Comment: Speci men Type: BLOOD SPECIMEN Ordering Facility: [facility] Address: [address] [place] [address] Performed By: #### 5 7021-8 #### [facility] CLIA [id number] [address] [place] [address] [place] HIGH SENSITIVITY TROPONIN To n 07-24-2024 Troponin T.cardiac High sensitivity method [Mass/Vol] 8 ng/L Normal <12 [facility] Comment on above: Order Comment: Speci men Type: BLOOD SPECIMEN Ordering Facility: [facility] Address: [address] [place] [address] Performed By: #### 2 4321-2, HSTNT, 53212-4, 2777-1 #### [facility] CLIA [id number] [address] [place] [address] [place] Magnesium SerPl-mCncon 07-24 Magnesium [Mass/Vol] 1.7 mg/dL Normal 1.7-2.3 [facility] Comment on above: Order Comment: Speci men Type: BLOOD SPECIMEN Ordering Facility: [facility] Address: [address] [place] [address] Performed By: #### 2 4321-2, HSTNT, 99138-7, 2777-1 #### [facility] CLIA [id number] [address] [place] [address] [place] [address] [place] OPERATIVE NOon 07-24-2024 OPERATIVE NO HNO ID: [id number] Author: XAVIER BOYD MD Service: General Surgery Author Type: Physician Type: Operative Report Filed: 07/24/2024 14:31 Note Text: OPERATIVE/PROCEDURE REPORT LOG ID: [id number] SURGERY/PROCEDURE DATE: 07/24/2024 INCISION/PROCEDURE START TIME: 11:37 AM INCISION CLOSE/PROCEDURE END TIME: 2:12 PM SURGEON(S)/PROCEDURALI ST(S) AND APPRENTICE ARCHITECT(S): Surgeons and Role: * Xavier Boyd MD [...] the left and right subcostal regions. An pharmacy sales assistant 5 mm trocar was placed in the left lower abdomen. A 5 mm Sheila-Penlogan Mimi Flex liver retractor was placed through [...] sutures to the left upper abdomen. The Center drain and liver retractor were removed. The [...] required to assist with this case. The pharmacy sales assistant performed retraction and assisted with exposure. PRE-OP/PRE-PROCEDURE DIAGNOSIS: Type III paraesophageal hernia, symptomatic POST-OP/POST-PROCEDURE DIAGNOSIS: Same as Preop ESTIMATED BLOOD LOSS: 30 mls SPECIMENS: None IMPLANTABLE DEVICES: NONE DRAINS: None COMPLICATIONS: None CLOSURE TECHNIQUE: Primary PARTICIPATION IN SURGERY/PROCEDURE: I/primary surgeon/proceduralist performed the procedure with assistance. SIGNATURE: Xavier Boyd MD PATIENT NAME: Shey Obrien DATE: July 24, 2024 TIME: 2:27 PM Normal [facility] Phosphate SerPl-mCncon 07-24 Phosphate [Mass/Vol] 3.6 mg/dL Normal 2.7-4.8 [facility] Comment on above: Order Comment: Speci men Type: BLOOD SPECIMEN Ordering Facility: [facility] Address: [address] [place] [address] Performed By: #### 2 4321-2, HSTNT, , 2776-07 #### [facility] CLIA [id number] [address] [place] [address] [place] CBC W Auto Differential pane l (Bld)on 07-23-2024 Basophils (Bld) [#/Vol] 0.04 10*3/uL Normal <0.11 [facility] Comment on above: Order Comment: Speci men Type: BLOOD SPECIMEN Ordering Facility: [facility] Address: [address] [place] [address] Performed By: #### 2 4321-2, HSTNT, , 2776-07 #### [facility] CLIA [id number] [address] [place] [address] [place] Basophils/100 WBC (Bld) 0.8 % Normal [facility] Comment on above: Order Comment: Speci men Type: BLOOD SPECIMEN Ordering Facility: [facility] Address: [address] [place] [address] Performed By: #### 2 4321-2, HSTNT, , 2776-07 #### [facility] CLIA [id number] [address] [place] [address] [place] Differential cell count method Nom (Bld) Auto Normal [facility] Comment on above: Order Comment: Speci men Type: BLOOD SPECIMEN Ordering Facility: [facility] Address: [address] [place] [address] Performed By: #### 2 4321-2, HSTNT, 76995-8, 2776- #### [facility] CLIA [id number] [address] [place] [address] [place] Eosinophils (Bld) [#/Vol] 0.18 10*3/uL Normal <0.46 [facility] Comment on above: Order Comment: Speci men Type: BLOOD SPECIMEN Ordering Facility: [facility] Address: [address] [place] [address] Performed By: #### 2 4321-2, HSTNT, , 2776- #### [facility] CLIA [id number] [address] [place] [address] [place] Eosinophils/100 WBC (Bld) 3.7 % Normal [facility] Comment on above: Order Comment: Speci men Type: BLOOD SPECIMEN Ordering Facility: [facility] Address: [address] [place] [address] Performed By: #### 2 4321-2, HSTNT, , 2776- #### [facility] CLIA [id number] [address] [place] [address] [place] Erythrocyte distribution width (RBC) [Ratio] 13.9 % Normal 11.5-15.0 [facility] Comment on above: Order Comment: Speci men Type: BLOOD SPECIMEN Ordering Facility: [facility] Address: [address] [place] [address] Performed By: #### 2 4321-2, HSTNT, , 2776- #### [facility] CLIA [id number] [address] [place] [address] [place] Hematocrit (Bld) [Volume fraction] 39.0 % Normal 36.0-46.0 [facility] Comment on above: Order Comment: Speci men Type: BLOOD SPECIMEN Ordering Facility: [facility] Address: [address] [place] [address] Performed By: #### 2 4321-2, HSTNT, , 2776- #### [facility] CLIA [id number] [address] [place] [address] [place] Hemoglobin (Bld) [Mass/Vol] 13.4 g/dL Normal 11.5-15.5 [facility] Comment on above: Order Comment: Speci men Type: BLOOD SPECIMEN Ordering Facility: [facility] Address: [address] [place] [address] Performed By: #### 2 4321-2, HSTNT, , 2776- #### [facility] CLIA [id number] [address] [place] [address] [place] Immature granulocytes (Bld) [#/Vol] 10*3/uL Normal <0.10 [facility] Comment on above: Order Comment: Speci men Type: BLOOD SPECIMEN Ordering Facility: [facility] Address: [address] [place] [address] Performed By: #### 2 4321-2, HSTNT, , 2776- #### [facility] CLIA [id number] [address] [place] [address] [place] Immature granulocytes/100 WBC (Bld) 0.4 % Normal [facility] Comment on above: Order Comment: Speci men Type: BLOOD SPECIMEN Ordering Facility: [facility] Address: [address] [place] [address] Performed By: #### 2 4321-2, HSTNT, , 2776- #### [facility] CLIA [id number] [address] [place] [address] [place] Lymphocytes (Bld) [#/Vol] 2.00 10*3/uL Normal 1.00-4.00 [facility] Comment on above: Order Comment: Speci men Type: BLOOD SPECIMEN Ordering Facility: [facility] Address: [address] [place] [address] Performed By: #### 2 4321-2, HSTNT, , 2776-07 #### [facility] CLIA [id number] [address] [place] [address] [place] Lymphocytes/100 WBC (Bld) 41.3 % Normal [facility] Comment on above: Order Comment: Speci men Type: BLOOD SPECIMEN Ordering Facility: [facility] Address: [address] [place] [address] Performed By: #### 2 4321-2, HSTNT, , 2776-07 #### [facility] CLIA [id number] [address] [place] [address] [place] MCH (RBC) [Entitic mass] 32.5 pg Normal 26.0-34.0 [facility] Comment on above: Order Comment: Speci men Type: BLOOD SPECIMEN Ordering Facility: [facility] Address: [address] [place] [address] Performed By: #### 2 4321-2, HSTNT, , 2776-07 #### [facility] CLIA [id number] [address] [place] [address] [place] MCHC (RBC) [Mass/Vol] 34.4 g/dL Normal 30.5-36.0 [facility] Comment on above: Order Comment: Speci men Type: BLOOD SPECIMEN Ordering Facility: [facility] Address: [address] [place] [address] Performed By: #### 2 4321-2, HSTNT, , 2776-07 #### [facility] CLIA [id number] [address] [place] [address] [place] MCV (RBC) [Entitic vol] 94.7 fL Normal 80.0-100.0 [facility] Comment on above: Order Comment: Speci men Type: BLOOD SPECIMEN Ordering Facility: [facility] Address: [address] [place] [address] Performed By: #### 2 4321-2, HSTNT, , 2776-07 #### [facility] CLIA [id number] [address] [place] [address] [place] Monocytes (Bld) [#/Vol] 0.30 10*3/uL Normal <0.87 [facility] Comment on above: Order Comment: Speci men Type: BLOOD SPECIMEN Ordering Facility: [facility] Address: [address] [place] [address] Performed By: #### 2 4321-2, HSTNT, , 2776-07 #### [facility] CLIA [id number] [address] [place] [address] [place] Monocytes/100 WBC (Bld) 6.2 % Normal [facility] Comment on above: Order Comment: Speci men Type: BLOOD SPECIMEN Ordering Facility: [facility] Address: [address] [place] [address] Performed By: #### 2 4321-2, HSTNT, , 2776-07 #### [facility] CLIA [id number] [address] [place] [address] [place] Neutrophils (Bld) [#/Vol] 2.30 10*3/uL Normal 1.45-7.50 [facility] Comment on above: Order Comment: Speci men Type: BLOOD SPECIMEN Ordering Facility: [facility] Address: [address] [place] [address] Performed By: #### 2 4321-2, HSTNT, , 2776-07 #### [facility] CLIA [id number] [address] [place] [address] [place] Neutrophils/100 WBC (Bld) 47.6 % Normal [facility] Comment on above: Order Comment: Speci men Type: BLOOD SPECIMEN Ordering Facility: [facility] Address: [address] [place] [address] Performed By: #### 2 4321-2, HSTNT, , 2776-07 #### [facility] CLIA [id number] [address] [place] [address] [place] Nucleated RBC (Bld) [#/Vol] 10*3/uL Normal <0.01 [facility] Comment on above: Order Comment: Speci men Type: BLOOD SPECIMEN Ordering Facility: [facility] Address: [address] [place] [address] Performed By: #### 2 4321-2, HSTNT, , 2776-07 #### [facility] CLIA [id number] [address] [place] [address] [place] Nucleated RBC/100 WBC (Bld) [Ratio] 0.0 /100 WBC Normal [facility] Comment on above: Order Comment: Speci men Type: BLOOD SPECIMEN Ordering Facility: [facility] Address: [address] [place] [address] Performed By: #### 2 4321-2, HSTNT, , 2776-07 #### [facility] CLIA [id number] [address] [place] [address] [place] Platelet mean volume (Bld) [Entitic vol] 10.2 fL Normal 9.0-12.7 [facility] Comment on above: Order Comment: Speci men Type: BLOOD SPECIMEN Ordering Facility: [facility] Address: [address] [place] [address] Performed By: #### 2 4321-2, HSTNT, , 2776-07 #### [facility] CLIA [id number] [address] [place] [address] [place] Platelets (Bld) [#/Vol] 169 10*3/uL Normal 150-400 [facility] Comment on above: Order Comment: Speci men Type: BLOOD SPECIMEN Ordering Facility: [facility] Address: [address] [place] [address] Performed By: #### 2 4321-2, HSTNT, , 2776-07 #### [facility] CLIA [id number] [address] [place] [address] [place] RBC (Bld) [#/Vol] 4.12 10*6/uL Normal 3.90-5.20 [facility] Comment on above: Order Comment: Speci men Type: BLOOD SPECIMEN Ordering Facility: [facility] Address: [address] [place] [address] Performed By: #### 2 4321-2, HSTNT, , 2776-07 #### [facility] CLIA [id number] [address] [place] [address] [place] WBC (Bld) [#/Vol] 4.84 10*3/uL Normal 3.70-11.00 [facility] Comment on above: Order Comment: Speci men Type: BLOOD SPECIMEN Ordering Facility: [facility] Address: [address] [place] [address] Performed By: #### 2 4321-2, HSTNT, , 2776-07 #### [facility] CLIA [id number] [address] [place] [address] [place] [facility] CBC W AUTO DIFF BLDon Basophils/100 WBC (Bld) 0.8 % [facility] BASOPHILS # BLD AUTO 0.04 [facility] DIFFERENTIAL METHOD BLD Auto [facility] EOSINOPHIL # BLD AUTO 0.18 [facility] LYMPHOCYTES # BLD AUTO 2 [facility] MONOCYTES # BLD AUTO 0.3 [facility] NEUTROPHILS # BLD AUTO 2.3 [facility] NRBC # BLD AUTO <0.01 [facility] NRBC/100 WBC BLD-RTO 0 /100 [...] Center IMM GRANULOCYTES # BLD AUTO <0.03 NINF [facility] IMM GRANULOCYTES/LEUK NFR BLD AUTO 0.4 % [...] Center Specimen Type: BLOOD SPECIMEN Ordering Facility: [facility] Address: [address] [place] [address] Original Ordering Provider: KATARZYNA WHEAT [facility] CONFIRM BLOOD TYPEon 025 ABO B Normal [facility] Comment on above: Order Comment: Speci men Type: BLOOD SPECIMEN Ordering Facility: [facility] Address: [address] [place] [address] Performed By: #### 2 4321-2, HSTNT, 56490-1, 2777-1 #### [facility] CLIA [id number] [address] [place] [address] [place] Rh Nom (Bld) Positive Normal [facility] Comment on above: Order Comment: Speci men Type: BLOOD SPECIMEN Ordering Facility: [facility] Address: [address] [place] [address] Performed By: #### 2 4321-2, HSTNT, , 2776-07 #### [facility] CLIA [id number] [address] [place] [address] [place] ABO group Nom (Bld) B [facility] Rh Nom (Bld) Positive [facility] Comprehensive metabolic 2000 panelon 07-23-2024 Albumin [Mass/Vol] 4.2 g/dL Normal 3.9-4.[address] [facility] Comment on above: Order Comment: Speci men Type: BLOOD SPECIMEN Ordering Facility: [facility] Address: [address] [place] [address] Performed By: #### 2 4321-2, HSTNT, , 2776-07 #### [facility] CLIA [id number] [address] [place] [address] [place] ALP [Catalytic activity/Vol] 111 U/L Normal 34-123 [facility] Comment on above: Order Comment: Speci men Type: BLOOD SPECIMEN Ordering Facility: [facility] Address: [address] [place] [address] Performed By: #### 2 4321-2, HSTNT, , 2776-07 #### [facility] CLIA [id number] [address] [place] [address] [place] ALT [Catalytic activity/Vol] 26 U/L Normal 7-38 [facility] Comment on above: Order Comment: Speci men Type: BLOOD SPECIMEN Ordering Facility: [facility] Address: [address] [place] [address] Performed By: #### 2 4321-2, HSTNT, , 2776-07 #### [facility] CLIA [id number] [address] [place] [address] [place] Anion gap [Moles/Vol] 10 mmol/L Normal 8-15 [facility] Comment on above: Order Comment: Speci men Type: BLOOD SPECIMEN Ordering Facility: [facility] Address: [address] [place] [address] Performed By: #### 2 4321-2, HSTNT, , 2776-07 #### [facility] CLIA [id number] [address] [place] [address] [place] AST [Catalytic activity/Vol] 28 U/L Normal 13-35 [facility] Comment on above: Order Comment: Speci men Type: BLOOD SPECIMEN Ordering Facility: [facility] Address: [address] [place] [address] Performed By: #### 2 4321-2, HSTNT, , 2776-07 #### [facility] CLIA [id number] [address] [place] [address] [place] Bilirubin [Mass/Vol] 0.5 mg/dL Normal 0.2-1.3 [facility] Comment on above: Order Comment: Speci men Type: BLOOD SPECIMEN Ordering Facility: [facility] Address: [address] [place] [address] Performed By: #### 2 4321-2, HSTNT, , 2776-07 #### [facility] CLIA [id number] [address] [place] [address] [place] Calcium [Mass/Vol] 9.4 mg/dL Normal 8.5-10.[address] [facility] Comment on above: Order Comment: Speci men Type: BLOOD SPECIMEN Ordering Facility: [facility] Address: [address] [place] [address] Performed By: #### 2 4321-2, HSTNT, , 2776-07 #### [facility] CLIA [id number] [address] [place] [address] [place] Chloride [Moles/Vol] 108 mmol/L High 98-107 [facility] Comment on above: Order Comment: Speci men Type: BLOOD SPECIMEN Ordering Facility: [facility] Address: [address] [place] [address] Performed By: #### 2 4321-2, HSTNT, , 2776- #### [facility] CLIA [id number] [address] [place] [address] [place] CO2 [Moles/Vol] 23 mmol/L Normal 22-30 [facility] Comment on above: Order Comment: Speci men Type: BLOOD SPECIMEN Ordering Facility: [facility] Address: [address] [place] [address] Performed By: #### 2 4321-2, HSTNT, , 2776-07 #### [facility] CLIA [id number] [address] [place] [address] [place] Creatinine [Mass/Vol] 0.99 mg/dL High 0.58-0.96 [facility] Comment on above: Order Comment: Speci men Type: BLOOD SPECIMEN Ordering Facility: [facility] Address: [address] [place] [address] Performed By: #### 2 4321-2, HSTNT, , 2776-07 #### [facility] CLIA [id number] [address] [place] [address] [place] Creatinine and Glomerular filtration rate.predicted panel (S/P/Bld) 61 mL/min/1.73m??? Normal >=60 [facility] Comment on above: Order Comment: Speci men Type: BLOOD SPECIMEN Ordering Facility: [facility] Address: [address] [place] [address] Result Comment: Ira mated Glomerular Filtration Rate [...] By: #### 2 4321-2, HSTNT, 2776-07 #### [facility] CLIA [id number] [address] [address] [place] Glucose [Mass/Vol] 155 mg/dL High 74-[address] [facility] Comment on above: Order Comment: Fabiola bliss Type: BLOOD SPECIMEN Ordering Facility: [facility] Address: [address] [place] [address] Result Comment: The [place] Diabetes [employer] (ADA) provides guidance for cutoff [...] Standards of Medical Care in Diabetes 2016, [place] [employer]. Diabetes Care. 2016.39(Suppl 1). Performed By: #### 2 4321-2, HSTNT, 2776-07 #### [facility] CLIA [id number] [address] [place], [place] [address] [place] Potassium [Moles/Vol] 4.3 mmol/L Normal 3.7-5.1 [facility] Comment on above: Order Comment: Fabiola bliss Type: BLOOD SPECIMEN Ordering Facility: [facility] Address: [address] [place] [address] Performed By: #### 2 4321-2, HSTNT, 2776-07 #### [facility] CLIA [id number] [address] [address] [place] Protein [Mass/Vol] 6.9 g/dL Normal 6.3-8.[address] [facility] Comment on above: Order Comment: Speci men Type: BLOOD SPECIMEN Ordering Facility: [facility] Address: [address] [place] [address] Performed By: #### 2 4321-2, HSTNT, , 2776- #### [facility] CLIA [id number] [address] [place] [address] [place] Sodium [Moles/Vol] 141 mmol/L Normal 136-[address] [facility] Comment on above: Order Comment: Speci men Type: BLOOD SPECIMEN Ordering Facility: [facility] Address: [address] [place] [address] Performed By: #### 2 4321-2, HSTNT, , 2776- #### [facility] CLIA [id number] [address] [place] [address] [place] Urea nitrogen [Mass/Vol] 13 mg/dL Normal 7-21 [facility] Comment on above: Order Comment: Speci men Type: BLOOD SPECIMEN Ordering Facility: [facility] Address: [address] [place] [address] Performed By: #### 2 4321-2, HSTNT, , 2776- #### [facility] CLIA [id number] [address] [place] [address] [place] ECG COMPLETEon 07-23-2024 ECG COMPLETE Ventricular Rate : 6 6 BPM Atrial Rate : 66 BPM P-R Interval : 158 ms QRS Duration : 78 ms Q-T Interval : 404 ms QTC Calculation(Bazett) : 423 ms Calculated P [place] : 32 degrees Calculated R [place] : 14 degrees Calculated T [place] : 54 degrees NORMAL SINUS RHYTHM NORMAL ECG Confirmed by MD HAKAN, HEBA ([id number]) on 07/29/2024 12:16:17 PM NAME : SHEY OBRIEN PID : [id number] : 1950 Gender : Female Race : ORD : [id number] Procedure Date : Jul 23 2024 12:08:10 Edit Date : Jul 29 2024 12:16:18 Diagnosis: NORMAL SINUS RHYTHM NORMAL ECG Confirmed by MD MCCLENDON HEBA ([id number]) on 07/29/2024 12:16:17 PM Test Reason : Location : 119 : A17 A17 Overread By : MD MCCLENDON HEBA Edited By : MD MCCLENDON HEBA Referred By : XAVIER BOYD Acquired by : SADE HA [facility] HISTORY PHYSICALon HISTORY PHYSICAL HNO ID: [id number] Author: JAMIL DELACRUZ PA-C Service: ? Author Type: Physician China Painter Type: H&P Filed: 07/23/2024 14:03 Note Text: [...] Obesity -Body mass index is 37.45 kg/m?. Sehth Activity Status Index: METS: DASI Score: 0 [...] Admin: COVID-19 vaccine, age 12+ yr, bivalent (IQR Consulting) 04/12/2021 Imm Admin: COVID-19 original vaccine, age 12+ yr, monovalent (IQR Consulting - PURPLE TOP) Only the first 3 [...] therap (more content not included)... Normal [facility] PT panel Coag (PPP)on 2024 INR Coag (PPP) [Relative time] 1.1 {INR} Normal 0.9-1.3 [facility] Comment on above: Order Comment: Speci men Type: BLOOD SPECIMEN Ordering Facility: [facility] Address: [address] [place] [address] Result Comment: Francesco min K Antagonist (VKA) Therapeutic Range: INR 2 to 3 (Target INR of 2.5) Note: For patients treated with VKA drugs, such as warfarin, the [employer] 2012 Guideline recommends [...] Chest 2012, 141:7S-47S Keisha RA, et al. [facility] 2017, 70: 252-289 Performed By: #### 2 4321-2, HSTNT, , 2776- #### [facility] CLIA [id number] [address] [place] [address] [place] PT Coag (PPP) [Time] 11.4 s Normal 9.7-13.0 [facility] Comment on above: Order Comment: Speci men Type: BLOOD SPECIMEN Ordering Facility: [facility] Address: [address] [place] [address] Performed By: #### 2 4321-2, HSTNT, , 2776- #### [facility] CLIA [id number] [address] [place] [address] [place] TYPE AND SCREEN,30 DAYon ABO B Normal [facility] Comment on above: Order Comment: Speci men Type: BLOOD SPECIMEN Ordering Facility: [facility] Address: [address] [place] [address] Performed By: #### 2 4321-2, HSTNT, , 2776-07 #### [facility] CLIA [id number] [address] [place] [address] [place] Rh Nom (Bld) Positive Normal [facility] Comment on above: Order Comment: Speci men Type: BLOOD SPECIMEN Ordering Facility: [facility] Address: [address] [place] [address] Performed By: #### 2 4321-2, HSTNT, , 2776- #### [facility] CLIA [id number] [address] [place] [address] [place] XR CHEST 2V FRONTAL/LATon 01 -14-2025 XR CHEST 2V FRONTAL/LAT * * *Final [...] soft tissues: Unremarkable. IMPRESSION: Large hiatal hernia. Cutting Table Operator: [facility] Transcribe Date/Time: Jul 24 2024 7:28A Dictated by : JARVIS HUGO MD This examination was interpreted and the report reviewed and electronically signed by: JARVIS HUGO MD on Jul 24 2024 7:30AM EST [id number] Normal [facility] aPTT PPPon 07-23-2024 aPTT Coag (PPP) [Time] 25.5 s Normal 23.0-32.4 [facility] Comment on above: Order Comment: Speci men Type: BLOOD SPECIMEN Ordering Facility: [facility] Address: [address] [place] [address] Performed By: #### 2 4321-2, HSTNT, 63528-3, 2777-1 #### [facility] CLIA [id number] [address] [place], [place] [address] [address] OF [place] CNOVon 04-29-2024 CNOV Office Visit (GENN ) SHEY OBRIEN ([id number]) 1950 F Date Time Provider Department 04/29/24 [...] No Yan Moser 04/29/2024 12:10 PM Signed [facility] Abdominal [facility] Health - HISTORY AND PHYSICAL SUBJECTIVE: [...] UGI reviewed and uploaded. Large Type III [facility]. ASSESSMENT/PLAN: chani Obrien is a 73 year [...] Consents obtained Yan Moser MD General Surgery [facility], Xavier Mayfield MD 04/29/2024 12:10 PM Signed [...] discussed (more content not included)... Normal [facility] CNPNon 04-22-2024 CNPN Telephone (GENSMN) SHEY OBRIEN ([id number]) 1950 F Date Time Provider Department 04/22/24 ASHLIE CALDERON During your visit today, we recorded the following information about you: Ashlie Calderon 04/22/2024 5:39 PM Signed Spoke with PT she state no prior surgeries Allergies As of Date: 04/22/2024 (Not on File) Date Reviewed: Never Reviewed Problem List As Of Date: 04/22/2024 (None) Encounter Status:Closed by ASHLIE CALDERON on 04/22/24 Normal [facility] Surgical Pathology Reporton 03-26-2024 Surgical Pathology Report [address] [address]- Surgical Pathology Report Collected Date/Time: 03/20/2024 12:52 EDT Pathologist: Cristina OLIVO, Pete Received Date/Time: 03/21/2024 08:07 EDT Yovanny OLIVO, [...] is entirely submitted in one cassette. (DC) DC:[facility] Microscopic Description Microscopic examination performed unless gross only specified. The use of one or more reagents in the above tests is regulated as an analyte specific reagent (ASR). The test or tests are ordered following initial H&E microscopic examination. The performance characteristics were determined by the Laboratory of [facility]. They have not been cleared or approved by the US Food and Drug Administration. The FDA has determined that such clearance or approval is not necessary. These tests are used for clinical purposes. They should not be regarded as investigational or for research. Appropriate positive and negative controls are performed and are acceptable. Normal [facility] Comment on above: Performed By: #### 4 [id number] #### [facility] Laboratory [address] [place] [address] XR Esophaguson 03-26-2024 XR Esophagus Exam Date/Time: [...] 15.80 DAP = 464.17 Normal [facility] Main OR Intraoperative Recor don 03-22-2024 Main OR Intraoperative Record Main OR Intraoperative Record IntraOp Document Type FT Summary Primary Physician: Dafne Spears MD Finalized Date/Time: 03/22/24 14:46:15 Pt. Name: KARYNSHEY/Sex: 1950 Female Med Rec #: [id number] Physician: Dafne Spears MD Financial #: [id number] Pt. Type: O Room/Bed: / Admit/Disch: 03/20/24 [...] 3 Case Attendee Mariella JOHNSON, Catalina Ivory WALL TAPER, Dafne Ferguson MD Role Performed PHYSICIAN PRACTICE CONSULTANT Scrub - Primary Surgeon - Primary Time In 03/20/24 12:44:00 03/20/24 12:44:00 03/20/24 12:44:00 Time Out 03/20/24 12:56:00 03/20/24 12:56:00 03/20/24 12:56:00 Procedure EGD(.) EGD(.) EGD(.) Comments Dr. Spears supervising procedure. Last Modified By: Mynor FORBES, Violette Lopez RN, Essence Pinto RN 03/22/24 14:45:45 03/20/24 12:56:36 03/20/24 12:56:36 Entry 4 Case Attendee Essence Lopez RN Role Performed Director Global Market Research - Primary Time In 03/20/24 12:44:00 Time [...] Given Participants Dianelys FORBES, Yovanny Ellington MD, John Sifuentes RN, Kara N Time Out Complete 03/20/24 12:46:00 Outcomes Met? Yes Last Modified By: Essnece Lopez RN 03/20/24 12:46:45 Post-Care Text: The [...] and tissue Entry 1 Skin Integrity Intact, [place], Warm, & Skin Abnormality No Dry Outcomes [...] (more content not included)... Normal [facility] Discharge Instructionson Discharge Instructions Discharge Instructions SHEY [...] mg Tab) fluticasone nasal (Flonase 0.05 mg/inh Melvin) losartan (losartan 25 mg Tab) multivitamin with [...] Discharge Follow Up with Yovanny OLIVO, Dafne Torers, [facility], [facility] When: Comments: Call for any problems. [...] Unchanged fluticasone nasal (Flonase 0.05 mg/ inh Melvin) 2 Sprays Nasal Inhalation Every day Unchanged [...] (more content not included)... Normal [facility] Comment on above: Result Comment: Elec tronically Signed By: Kassy Barker I\.br\Date and Time Signed: 03/20/24 13:08 EDT Inpatient Patient Summaryon 03-20-2024 Inpatient Patient Summary Inpatient Patient Summary [place] [address] [facility] Clinical Discharge Instructions PERSON INFORMATION Name: SHEY OBIREN [facility]#:[id number] PHYSICIANS Admitting Physician: Yovanny OLIVO, Dafne Torres Attending Physician: Dafne Spears MD PCP: LATRELL JACK MD Diagnosis: Comment: [...] (at bedtime). fluticasone nasal (Flonase 0.05 mg/inh Melvin) 2 Sprays Nasal Inhalation every day. losartan [...] bedtime) as needed for sleep. Comment: [facility] Main OR PACU I Recordon 03-10 Main OR PACU I Record Main OR PACU I Rec ord PACU Phase I Document Type FT Summary Primary Physician: Dafne Spears MD Finalized Date/Time: 03/20/24 13:37:02 Pt. Name: KARYNALPAON Tamie/Sex: 1950 Female Med Rec #: [id number] Physician: Dafne Spears MD Financial #: [id number] Pt. Type: O Room/Bed: / Admit/Disch: 03/20/24 [...] Barker I 03/20/24 13:37 Normal [facility] Main OR Preoperative Recordo n 03-20-2024 Main OR Preoperative Record Main OR Preoperative Record Holding Area Document Type FT Summary Primary Physician: Dafne Spears MD Finalized Date/Time: 03/20/24 11:17:32 Pt. Name: SHEY OBRIEN Tamie/Sex: 1950 Female Med Rec #: [id number] Physician: Dafne Spears MD Financial #: [id number] Pt. Type: O Room/Bed: / Admit/Disch: 03/20/24 [...] Lopez RN 03/20/24 11:17 Normal [facility] Outpatient Surgery Discharge Instructionon 03-20-2024 Outpatient Surgery Discharge Instruction Outpatient Surgery Discharge Instruction [place] [id number] Patient Discharge Instructions PERSON INFORMATION Name: SHEY [...] NEAREST EMERGENCY ROOM OR CALL 911 I, KARYNALPA GARCIAON, have received the attached patient education materials/instructions [...] to serve you. Thank you for choosing [facility] HERE ARE THE MEDICATION CHANGES [...] (at bedtime). fluticasone nasal (Flonase 0.05 mg/inh Melvin) 2 Sprays Nasal Inhalation every day. losartan [...] sleep. PATIENT EDUCATION INFORMATION Instructions: Medication Leaflets: [facility] Proceduralon 03-20-2024 Procedural Procedural Patient: SHEY OBRIEN Age: 73 years Sex: Female : 1950 Associated Diagnoses: None Author: Daquan Schuler MD Postoperative Information Postoperative disposition: Postoperative disposition: To PACU. Optimetrix number: Optimetrix number [id number]. Anesthetic utilized: General. Health Status Allergies: Allergic [...] ( To home ). Normal [facility] Procedural Procedural Patient: SHEY OBRIEN Age: 73 [...] 1 tab, Oral, Daily Flonase 0.05 mg/inh Melvin: 2 spray(s), Nasal, Daily, Refill(s) 0, Dry [...] a day (at bedtime) Flonase 0.05 mg/inh Melvin 2 spray(s), Nasal, Daily losartan 25 mg [...] All Problems BMI 39.0-39.9,adult / SNOMED CT 479533978 / Confirmed Chronic obstructive pulmonary disease / SNOMED CT 35206429 / Confirmed Dyslipidemia / SNOMED CT 8835185626 / Confirmed Dysphagia / SNOMED CT 38052778 / Confirmed GERD (gastroesophageal reflux disease) / SNOMED CT 185377726 / Confirmed Hiatal hernia / SNOMED CT 452765439 / Confirmed HTN (hypertension) / SNOMED CT 9434550058 / Confirmed Insomnia / SNOMED CT 948232250 / Confirmed Lower extremity edema / SNOMED CT 564408482 / Confirmed Morbid obesity / SNOMED CT 236893866 / Confirmed EDWIN (obstructive sleep apnea) / SNOMED CT 034929599 / Confirmed Screening for malignant neoplasm of colon / SNOMED CT 693252219 / Confirmed Seasonal allergic rhinitis / SNOMED CT 181585696 / Confirmed TIA (transient ischemic attack) / SNOMED CT 653896269 / Confirmed Resolved: At risk for falls / SNOMED CT 624063873 Problem added when Risk for Falls Careplan was initiated. Resolved due to patient discharge. Resolved: Hernia / SNOMED CT 533584555 Resolved: Potential for deficient knowledge of cerebrovascular accident (CVA) / IMO 00847390 problem added based on Stroke Powerplan ordered. Resolved due to patient discharge. Resolved: Sleep apnea / SNOMED CT 120735406, Active Problems (14) BMI 39.0-39.9,adult Chronic obstructive pulmonary disease Dyslipidemia Dysphagia GERD (gastroesophageal reflux disease) Hiatal hernia HTN (hypertension) Insomnia Lower extremity edema Morbid obesity EDWIN (obstructive sleep apnea) Screening for malignant neoplasm of colon Seasonal allergic rhinitis TIA (transient ischemic (more content not included)... Normal [facility] ALL FOLIC ACIDon 03-07-2024 FOLATE 23.60 ng/mL 8.60 - 58.90 ng/mL [facility] ALL THYROID STIM HORMONEon 0 03-07-2024 TSH Qn 2.782 m[IU]/L [facility] No Panel Informationon 03-07 [facility] Ambulatory Visit Summaryon 0 02-26-2024 Ambulatory [...] mg Tab) fluticasone nasal (Flonase 0.05 mg/inh Melvin) losartan (losartan 25 mg Tab) multivitamin with [...] Unchanged fluticasone nasal (Flonase 0.05 mg/ inh Melvin) 2 Sprays Nasal Inhalation Every day Contact [...] for choosing us for your care. Kary [facility] Gastroenterology Office/Clin ic Noteon 02-26-2024 Gastroenterology Office/Clinic [...] or gangrene) reports she had esophagram in [place] no egd in the past declined surgery [...] a day (at bedtime) Flonase 0.05 mg/inh Melvin, 2 spray(s), Nasal, Daily losartan 25 mg [...] virus vaccine, inactivated 05/03/2022 Recorded SARS-CoV-2 (COVID-19) [id number] 05/03/2022 Recorded influenza virus vaccine, inactivated 04/12/2021 [...] virus vaccine, inactivated 04/16/2015 Recorded Normal [facility] Comment on above: Result Comment: Elec tronically Signed By: Yovanny OLIVO, Dafne Torres\.br\Date and Time Signed: 02/26/24 09:38 EDT IntraOperative Documentson 0 10-19-2023 IntraOperative Documents [id number] .00TIFF Normal [facility] Consenton 10-16-2023 Consent [id number]. 00TIFF Normal [facility] Discharge Instructionson Discharge Instructions [id number]#1. 00TIFF Normal [facility] Main OR Intraoperative Recor don 10-16-2023 Main OR Intraoperative Record IntraOp Document Type FT Summary Primary Physician: Pa WEBB MD Finalized Date/Time: 10/16/23 09:46:21 Pt. Name: KARYNSHEY./Sex: 1950 Female Med Rec #: [id number] Physician: Pa WEBB MD Financial #: [id number] Pt. Type: O Room/Bed: / Admit/Disch: 10/13/23 07:49:21 - 10/13/23 23:59:59 Institution: Case Times FT Entry 1 Patient Times In Room 10/13/23 08:55:00 Out Room 10/13/23 09:16:00 Procedure Times Start 10/13/23 08:59:00 Stop 10/13/23 09:12:00 Anesthesia Times Start 10/13/23 08:55:00 Stop 10/13/23 09:16:00 Time at [facility] 10/13/23 09:03:00 Last Modified By: Naresh FORDE, Kimberly Gross 10/13/23 09:16:34 General Comments: 10/16/23 Chart opened for charge review only per Danilo Bennett RN. [place] Case Attendance FT Entry 1 Entry 2 Entry 3 Case Attendee Rajwinder DRAPER, Valentin WEBB MD, Kimberly Mcclellan RN Role Performed Anesthesiologist Surgeon - Primary Director Global Market Research - Primary China Painter Time In 10/13/23 08:55:00 10/13/23 08:55:00 10/13/23 [...] and tissue Entry 1 Skin Integrity Intact, [place], Warm, and Skin Abnormality No Dry Outcomes [...] (more content not included)... Normal [facility] Postoperative Documentson Postoperative Documents [id number]#1. 00TIFF Normal [facility] Reminderson 10-16-2023 Reminders - From: Nhi Aguirre LPN To: GSN - Clinical; Sent: 10/16/2023 10:15:48 EDT Show up: 09/11/2033 07:00:00 EST Subject: colonoscopy recall Due Date/Time: 10/12/2033 07:00:00 EDT Reminder/Recall Patient due for screening colonoscopy 10/12/2033. Normal [facility] Colonoscopy Procedure Report on 10-13-2023 [...] for screening for malignant neoplasm of rectum ([id number]-IR Z12.12, Discharge, Medical). Course: Progressing as expected. Recommendations: Repeat colonoscopy:: In 10 years. Follow-up:: if problems/questions. Diet:: Regular diet. Medication resumption:: Continue current medications. Return to activities:: After 24 hours. Education and Follow-up: Counseled: Family. [facility] Comment on above: Other Comment: Samreen dueñas Attachment - attachment storage system not supported [id number] Can be viewed in source systemMissing Attachment - attachment storage system not supported [id number] Can be viewed in source systemMissing Attachment - attachment storage system not supported [id number] Can be viewed in source systemMissing Attachment - attachment storage system not supported [id number] Can be viewed in source systemMissing Attachment - attachment storage system not supported [id number] Can be viewed in source system Consent for Treatmenton Consent for Treatment [id number] 0TIFF [facility] Discharge Instructionson Discharge Instructions SHEY OBRIEN :1950 [...] mg Tab) fluticasone nasal (Flonase 0.05 mg/inh Melvin) losartan (losartan 25 mg Tab) multivitamin with [...] Pa WEBB When: Only if needed Where: [address] [place] [address], [facility] [address] [place] [phone] Symptom.ly (1) Medications What How Much When Instructions [...] Unchanged fluticasone nasal (Flonase 0.05 mg/ inh Melvin) 2 Sprays Nasal Inhalation Every day Unchanged [...] (more content not included)... Normal [facility] Comment on above: Result Comment: Elec tronically Signed By: Marcy FORDE, Mariaelena\.br\Date and Time Signed: 10/13/23 09:33 EDT Inpatient Patient Summaryon 10-13-2023 Inpatient Patient Summary [place] [id number] [facility] Clinical Discharge Instructions PERSON INFORMATION Name: SHEY OBRIEN PHYSICIANS Admitting Physician: Pa WEBB MD Attending Physician: Pa WEBB MD PCP: LATRELL JACK MD Discharge Diagnosis: Encounter for colorectal cancer screening; Encounter for screening for malignant neoplasm of rectum Comment: PATIENT EDUCATION INFORMATION Instructions: Medication Leaflets: Follow up: With: Address: When: Pa WEBB [address] [place] [address], [address], [place] [address] Business (1) , only if needed MEDICATION [...] (at bedtime). fluticasone nasal (Flonase 0.05 mg/inh Melvin) 2 Sprays Nasal Inhalation every day. losartan [...] needed for sleep. Comment: Normal [facility] Main OR PACU I Recordon Main OR PACU I Record PACU Phase I Docum ent Type FT Summary Primary Physician: Pa WEBB MD Finalized Date/Time: 10/13/23 09:54:27 Pt. Name: SHEY OBRIEN/Sex: 1950 Female Med Rec #: [id number] Physician: Pa WEBB MD Financial #: [id number] Pt. Type: O Room/Bed: / Admit/Disch: 10/13/23 [...] Vidal RN 10/13/23 09:54 Normal [facility] Main OR Preoperative Recordo n 10-13-2023 Main OR Preoperative Record Holding Area Document Type FT Summary Primary Physician: Pa WEBB MD Finalized Date/Time: 10/13/23 08:06:06 Pt. Name: SHEY OBRIEN/Sex: 1950 Female Med Rec #: [id number] Physician: Pa WEBB MD Financial #: [id number] Pt. Type: O Room/Bed: / Admit/Disch: 10/13/23 [...] Signed By: Trip Domínguez 10/13/23 08:06 Normal [facility] Monitor Recordon 10-13-2023 Monitor Record [id number]#1. 00TIFF Normal [facility] Monitor Record [id number]. 00TIFF Normal [facility] Outpatient Surgery Discharge Instructionon 10-13-2023 Outpatient Surgery Discharge Instruction [address] [address] Patient Discharge Instructions PERSON INFORMATION [...] With: Address: When: [address], [address], [place] [phone] [facility] (1) , only if needed Pharmacy Information: You may receive a survey from [facility] asking you to rate your care experience. Your feedback is important and will help us understand what we do well and how we can improve the quality of care we provide to you, your loved ones and our community. It?s an honor to serve you. Thank you for choosing [facility] HERE ARE THE MEDICATION CHANGES [...] (at bedtime). fluticasone nasal (Flonase 0.05 mg/inh Melvin) 2 Sprays Nasal Inhalation every day. losartan [...] sleep. PATIENT EDUCATION INFORMATION Instructions: Medication Leaflets: [facility] Patient Education - Texton 0 10-13-2023 [...] or gets worse throughout the day. Normal [facility] Progress Note-Physicianon Progress Note-Physician Patient: SHEY OBRIEN Age: 73 years Sex: Female : 1950 Associated Diagnoses: None Author: Shaji Bethea Jr., DO Postoperative Information Postoperative disposition: Postoperative disposition: Home. Optimetrix number: Optimetrix number [id number]. Anesthetic utilized: General. Physical Examination Vital Signs [...] and To home ). Normal [facility] Comment on above: Result Comment: Elec tronically [...] m2 Documented Medications Documented Flonase 0.05 mg/inh Melvin: 2 spray(s), Nasal, Daily, Refill(s) 0, Dry [...] a day (at bedtime) Flonase 0.05 mg/inh Melvin 2 spray(s), Nasal, Daily losartan 25 mg [...] All Problems BMI 39.0-39.9,adult / SNOMED CT 172541968 / Confirmed Chronic obstructive pulmonary disease / SNOMED CT 29436384 / Confirmed Dyslipidemia / SNOMED CT 8422104852 / Confirmed GERD (gastroesophageal reflux disease) / SNOMED CT 143679364 / Confirmed Hiatal hernia / SNOMED CT 899320507 / Confirmed HTN (hypertension) / SNOMED CT 3738726370 / Confirmed Insomnia / SNOMED CT 236262865 / Confirmed Lower extremity edema / SNOMED CT 317717464 / Confirmed Morbid obesity / SNOMED CT 658675213 / Confirmed EDWIN (obstructive sleep apnea) / SNOMED CT 938082688 / Confirmed Screening for malignant neoplasm of colon / SNOMED CT 406182310 / Confirmed Seasonal allergic rhinitis / SNOMED CT 859610552 / Confirmed TIA (transient ischemic attack) / SNOMED CT 940318120 / Confirmed Resolved: At risk for falls / SNOMED CT 638582076 Problem added when Risk for Falls Careplan was initiated. Resolved due to patient discharge. Resolved: Hernia / SNOMED CT 911714415 Resolved: Potential for deficient knowledge of cerebrovascular accident (CVA) / IMO 98099082 problem added based on Stroke Powerplan ordered. Resolved due to patient discharge. Resolved: Sleep apnea / SNOMED CT [id number] Histories Past Medical History: Resolved Hernia ([id number]): Resolved. Sleep apnea ([id number]): Resolved. Procedure history: ORIF - Open reduction of fracture of ankle with internal fixation ([id number]). Meniscal repair ([id number]). Tonsillectomy (932918522). Hand tendon repaired ([id number]). Social History Social & Psychosocial Habits Alcohol 09/12/2023 Frequency: 1-2 times per year Substance Abuse Comment: renita - 03/03/2021 07:19 - Carolyn Stewart RN 09/12/2023 Risk Assessment: Denies Substance Abuse Tobacco 09/12/2023 Tobacco Use: Former smoker, quit more Smokeless tobacco use: Never Type: Cigarettes . Physical Examination Vital Signs 10/13/2023 8:03 EDT Temperature Temporal Artery 36.3 DegC (more content not included)... Normal [facility] Comment on above: Result Comment: Elec tronically Signed By: Shaji Bethea Jr., DO\Date and Time Signed: 10/13/23 08:04 EDT Consent for Procedure/Surger yon 09-13-2023 Consent for Procedure/Surgery [id number] TIFF Normal [facility] Ambulatory Visit Summaryon 0 09-12-2023 Ambulatory Visit [...] mg Tab) fluticasone nasal (Flonase 0.05 mg/inh Melvin) losartan (losartan 25 mg Tab) multivitamin with [...] Unchanged fluticasone nasal (Flonase 0.05 mg/ inh Melvin) 2 Sprays Nasal Inhalation Every day Contact [...] us for your care. Normal [facility] Provider Letteron 08-25-2023 Provider Letter August 25, 2023 SHEY OBRIEN [address] [place] [phone] : 1950 Dear Ms. Obrien, We have been trying to reach you with no success regarding a referral from Dr Jack. It is important that you return our call upon receiving this letter so that we can set up an appointment for you in either our [place] or [place] office. Also, at the time of your call, please provide us with your current demographic and insurance information. Thank you for your prompt attention to this matter. Sincerely, [facility] General Surgery [phone] Normal [facility] Physician Referralon 024 Physician Referral [id number] 20 [id number]#1.0 0TIFF Normal [facility] CT LUNG CANCER SCREENINGon 0 07-28-2022 CT [...] MEHNAZ SANTIAGO Date: 2022-07-28 15:28 Normal [facility] BNPon 02-22-2022 Natriuretic peptide B (Bld) [Mass/Vol] 108.0 pg/mL Normal <=900.0 [facility] Comment on above: Performed By: #### B MP, BNP, HSTROPN ####[facility] [address] [place], [place] [address]GvMichelle Felisa Ronnie CBC AUTO DIFFon 02-22-2022 BASO # 0.0 103/ul Normal 0.0-0.1 [facility] Comment on above: Performed By: #### C BC ####[facility] [address] [place] [address]Dr. Felisa Trujillo Basophils/100 WBC (Bld) 0.7 % Normal 0.2-2.0 [facility] Comment on above: Performed By: #### C BC ####[facility] [address] [place], [place] [id number]. Felisa Trujillo EO # 0.1 103/ul Normal 0.0-0.7 [facility] Comment on above: Performed By: #### C BC ####[facility] [address] [place], [place] [address]Dr. Felisa Trujillo Eosinophils/100 WBC (Bld) 1.4 % Normal 0.9-7.0 [facility] Comment on above: Performed By: #### C BC ####[facility] [address] [place], [place] [address]Dr. Felisa Trujillo Erythrocyte distribution width (RBC) [Ratio] 13.2 % Normal 11.0-15.0 [facility] Comment on above: Performed By: #### C BC ####[facility] [address] [place], [place] [address]Dr. Felisa Trujillo Hematocrit (Bld) [Volume fraction] 36.6 % Normal 36.0-48.0 [facility] Comment on above: Performed By: #### C BC ####[facility] [address] [place], [place] [address]Dr. Felisa Trujillo Hemoglobin (Bld) [Mass/Vol] 12.7 g/dL Normal 12.0-16.0 [facility] Comment on above: Performed By: #### C BC ####[facility] [address] [place], [place] [address]Dr. Felisa Trujillo IG # 0.01 10e3/ul Normal 0.00-0.03 [facility] Comment on above: Performed By: #### C BC ####[facility] Sz[address] [place], [place] [address]Dr. Felisa Trujillo IG % 0.2 % Normal 0.0-0.5 [facility] Comment on above: Performed By: #### C BC ####[facility] [address] [place] [address]Dr. Felisa Trujillo LYMPH # 1.0 103/ul Critically low 1.2-3.8 [facility] Comment on above: Performed By: #### C BC ####[facility] [address] [place] [address]Dr. Felisa Trujillo Lymphocytes/100 WBC (Bld) 22.3 % Normal 20.5-60.0 [facility] Comment on above: Performed By: #### C BC ####[facility] [address] [place] [address]Dr. Felisa Trujillo MANUAL DIFF REQ NO Normal [facility] Comment on above: Performed By: #### C BC ####[facility] [address]mgtb[address] [place] [address]Dr. Felisa Trujillo MCH (RBC) [Entitic mass] 31.8 pg Normal 26.7-34.0 [facility] Comment on above: Performed By: #### C BC ####[facility] [address]ignka[address] [place] [address]Dr. Felisa Trujillo MCHC (RBC) [Mass/Vol] 34.7 g/dL Normal 29.9-35.2 [facility] Comment on above: Performed By: #### C BC ####[facility] [address] [place] [address]Dr. Felisa Trujillo MCV (RBC) [Entitic vol] 91.7 fL Normal 81.0-99.0 [facility] Comment on above: Performed By: #### C BC ####[facility] [address] [place] [address]DrMichelle Trujillo MONO # 0.5 103/ul Normal 0.3-0.8 [facility] Comment on above: Performed By: #### C BC ####[facility] [address] [place] [address]Dr. Felisa Trujillo Monocytes/100 WBC (Bld) 11.7 % Normal 1.7-12.0 [facility] Comment on above: Performed By: #### C BC ####[facility] [address] [place] [address]Dr. Felisa Trujillo NEUT # 2.7 103/ul Normal 1.4-6.5 [facility] Comment on above: Performed By: #### C BC ####[facility] [address]ur[address] [place] [address]Dr. Felisa Trujillo Neutrophils/100 WBC (Bld) 63.7 % Normal 43.0-75.0 [facility] Comment on above: Performed By: #### C BC ####[facility] [address] [place] [address]Dr. Felisa Trujillo Platelet mean volume (Bld) [Entitic vol] 10.2 fL Normal 9.5-13.5 [facility] Comment on above: Performed By: #### C BC ####[facility] [address] [place] [address]Dr. Felisa Trujillo PLT 149 103/ul Critically low 150-450 [facility] Comment on above: Performed By: #### C BC ####[facility] [address] [place] [address]Dr. Felisa Trujillo RBC 3.99 106/ul Critically low 4.20-5.40 [facility] Comment on above: Performed By: #### C BC ####[facility] [address] [place] [address]Dr. Felisa Trujillo WBC 4.3 103/ul Normal 4.0-11.0 [facility] Comment on above: Performed By: #### C BC ####[facility] [address] [place] [id number]. Felisa Trujillo Covid-19 PCR ([facility]on 02-07 SARS-CoV-2 (COVID-19) RNA DUGLAS+probe Ql (Unsp spec) Detected Critically abnormal NOT DETECTED [facility] Comment on above: Result Comment: This test is not yet approved or cleared by the [place] FDA. When there are no FDA-approved or cleared tests available, and other criteria are met, FDA can make tests available under an emergency access mechanism called an Emergency Use Authorization (EUA). The EUA for this test is supported by the [place] of Health and Human Service's declaration that [...] be used). Performed By: #### C VDTBH ####[facility] [address] [place], [place] [address]Dr. Felisa Trujillo PROF CHEM 8 (BAS METB)on Anion gap [Moles/Vol] 14.9 mmol/L Normal [facility] Comment on above: Performed By: #### B MP, BNP, HSTROPN ####[facility] [address] [place], [place] [address]Dr. Felisa Trujillo Calcium [Mass/Vol] 8.9 mg/dL Normal 8.5-10.1 [facility] Comment on above: Performed By: #### B MP, BNP, HSTROPN ####[facility] [address] [place], [place] [address]Dr. Felisa Trujillo Chloride [Moles/Vol] 104 mmol/L Normal 98-107 [facility] Comment on above: Performed By: #### B MP, BNP, HSTROPN ####[facility] [address] [place], [place] [address]Dr. Felisa Trujillo CO2 [Moles/Vol] 24.0 mmol/L Normal 21.0-32.0 [facility] Comment on above: Performed By: #### B MP, BNP, HSTROPN ####[facility] Ng[address] [place], [place] [address]Dr. Felisa Trujillo Creatinine [Mass/Vol] 0.98 mg/dL Normal 0.55-1.02 [facility] Comment on above: Performed By: #### B MP, BNP, HSTROPN ####[facility] [address] [place] [address]Dr. Felisa Trujillo EGFR-AF UKRAINIAN >60 Normal >=60 [facility] Comment on above: Performed By: #### B MP, BNP, HSTROPN ####[facility] [address] [place] [address]Dr. Felisa Trujillo EGFR-NON AF UKRAINIAN 56 mL/min/1.73m2 Critically low >=60 [facility] Comment on above: Performed By: #### B MP, BNP, HSTROPN ####[facility] [address] [place], [place] [address]Dr. Felisa Trujillo Glucose [Mass/Vol] 136 mg/dL Critically high 74-106 [facility] Comment on above: Performed By: #### B MP, BNP, HSTROPN ####[facility] [address] [place], [place] [address]Dr. Felisa Trujillo Potassium [Moles/Vol] 3.9 mmol/L Normal 3.5-5.1 [facility] Comment on above: Performed By: #### B MP, BNP, HSTROPN ####[facility] [address] [place], [place] [address]Dr. Felisa Trujillo Sodium [Moles/Vol] 139 mmol/L Normal 136-145 [facility] Comment on above: Performed By: #### B MP, BNP, HSTROPN ####[facility] [address] [place], [place] [address]Dr. Felisa Trujillo Urea nitrogen [Mass/Vol] 14.0 mg/dL Normal 7.0-18.0 [facility] Comment on above: Performed By: #### B MP, BNP, HSTROPN ####[facility] [address] [place], [place] [address]Dr. Felisa Trujillo Urea nitrogen/Creatinine [Mass ratio] 14.3 mg/mg Normal [facility] Comment on above: Performed By: #### B MP, BNP, HSTROPN ####[facility] [address] [place], [place] [address]Dr. Felisa Ronnie TROPONIN, HIGH SENSITIVITYon 02-22-2022 HSTROP 5.9 pg/mL Normal 4.0-51.3 [facility] Comment on above: Result Comment: CUT- OFF POINTS HAVE BEEN ESTABLISHED BASED ON THE FOURTH UNIVERSAL DEFINITIONS OF MYOCARDIAL INFARCTION. THE UPPER REFERENCE LIMIT (URL) OF TROPONIN, DEFINED THE 99TH PERCENTILE OF cTnI DISTRIBUTION IN A REFERENCE POPULATION, HAS BEEN CONFIRMED THE DECISION THRESHOLD FOR [place] DIAGNOSIS. Performed By: #### B MP, BNP, HSTROPN ####[facility] [address] [place], [place] [address]Jk. Felisa Trujillo XR CHEST 1 Von 02-22-2022 [...] MEHNAZ SANTIAGO Date: 2022-02-22 13:30 Normal [facility] MAMM SCREEN 3D RONALD CADon 11-11-2021 MG MAMM SCREEN 3D RONALD CAD Patient: SHEY OBRIEN Exam Date: 11/11/2021 : 1950 Gender:F Ordering : DR LATRELL JACK . Admission #: [id number] Family : Order #: [id number] CLICK HERE TO VIEW EXAM RADIOLOGY REPORT [...] at age 46. LOCATION: [facility] BREAST COMPOSITION: Almost entirely fatty. FINDINGS: DIAGNOSTIC [...] MD on 11/11/2021 at 13:04 Normal [facility] BNPon 11-02-2021 Natriuretic peptide B (Bld) [Mass/Vol] 42.0 pg/mL Normal <=900.0 [facility] Comment on above: Performed By: #### H STROPN, CMP, BNP #### [facility] Laboratory [address] [place] [address] Dr. Felisa Trujillo CBC AUTO DIFFon 11-02-2021 BASO # 0.1 103/ul Normal 0.0-0.1 [facility] Comment on above: Performed By: #### C BC #### [facility] Laboratory [address] [place] [address] Dr. Felisa Trujillo Basophils/100 WBC (Bld) 0.8 % Normal 0.2-2.0 [facility] Comment on above: Performed By: #### C BC #### [facility] Laboratory [address] [place] [address] Dr. Felisa Trujillo EO # 0.3 103/ul Normal 0.0-0.7 [facility] Comment on above: Performed By: #### C BC #### [facility] Laboratory [address] [place] [address] Dr. Felisa Trujillo Eosinophils/100 WBC (Bld) 3.9 % Normal 0.9-7.0 [facility] Comment on above: Performed By: #### C BC #### [facility] Laboratory [address] [place] [address] Dr. Felisa Trujillo Erythrocyte distribution width (RBC) [Ratio] 12.7 % Normal 11.0-15.0 [facility] Comment on above: Performed By: #### C BC #### [facility] Laboratory [address] [place] [address] Dr. Felisa Trujillo Hematocrit (Bld) [Volume fraction] 40.2 % Normal 36.0-48.0 [facility] Comment on above: Performed By: #### C BC #### [facility] Laboratory [address] [place] [address] Dr. Felisa Trujillo Hemoglobin (Bld) [Mass/Vol] 13.6 g/dL Normal 12.0-16.0 [facility] Comment on above: Performed By: #### C BC #### [facility] Laboratory [address] [place] [address] Dr. Felisa Trujillo IG # 0.02 10e3/ul Normal 0.00-0.03 [facility] Comment on above: Performed By: #### C BC #### [facility] Laboratory [address] [place] [address] Dr. Felisa Trujillo IG % 0.3 % Normal 0.0-0.5 [facility] Comment on above: Performed By: #### C BC #### [facility] Laboratory [address] [place] [address] Dr. Felisa Trujillo LYMPH # 1.9 103/ul Normal 1.2-3.8 [facility] Comment on above: Performed By: #### C BC #### [facility] Laboratory [address] [place] [address] Dr. Felisa Trujillo Lymphocytes/100 WBC (Bld) 30.0 % Normal 20.5-60.0 [facility] Comment on above: Performed By: #### C BC #### [facility] Laboratory [address] [place] [address] Dr. Felisa Trujillo MANUAL DIFF REQ NO Normal [facility] Comment on above: Performed By: #### C BC #### [facility] [address] [place] [address] Dr. Felisa Trujillo MCH (RBC) [Entitic mass] 31.5 pg Normal 26.7-34.0 [facility] Comment on above: Performed By: #### C BC #### [facility] Laboratory [address] [place] [address] Dr. Felisa Trujillo MCHC (RBC) [Mass/Vol] 33.8 g/dL Normal 29.9-35.2 [facility] Comment on above: Performed By: #### C BC #### [facility] Laboratory [address] [place] [address] [address] Felisa Trujillo MCV (RBC) [Entitic vol] 93.1 fL Normal 81.0-99.0 [facility] Comment on above: Performed By: #### C BC #### [facility] Laboratory [address] [place] [address] [address] Felisa Trujillo MONO # 0.6 103/ul Normal 0.3-0.8 [facility] Comment on above: Performed By: #### C BC #### [facility] Laboratory [address] [place] [address] Dr. Felisa Trujillo Monocytes/100 WBC (Bld) 8.5 % Normal 1.7-12.0 [facility] Comment on above: Performed By: #### C BC #### [facility] Laboratory [address] [place] [address] Dr. Felisa Trujillo NEUT # 3.7 103/ul Normal 1.4-6.5 [facility] Comment on above: Performed By: #### C BC #### [facility] [address] [place] [address] Dr. Felisa Trujillo Neutrophils/100 WBC (Bld) 56.5 % Normal 43.0-75.0 [facility] Comment on above: Performed By: #### C BC #### [facility] Laboratory [address] [place] [address] Dr. Felisa Trujillo Platelet mean volume (Bld) [Entitic vol] 9.9 fL Normal 9.5-13.5 [facility] Comment on above: Performed By: #### C BC #### [facility] Laboratory [address] [place] [address] Dr. Felisa Trujillo PLT 193 103/ul Normal 150-450 [facility] Comment on above: Performed By: #### C BC #### [facility] Laboratory [address] [place] [address] [address] Felisa Trujillo RBC 4.32 106/ul Normal 4.20-5.40 [facility] Comment on above: Performed By: #### C BC #### [facility] Laboratory [address] [place] [address] [address] Felisa Trujillo WBC 6.5 103/ul Normal 4.0-11.0 [facility] Comment on above: Performed By: #### C BC #### [facility] Laboratory [address] [place] [address] [address] Felisa Trujillo Covid-19 PCR ([facility])on 10-09 SARS-CoV-2 (COVID-19) RNA DUGLAS+probe Ql (Unsp spec) Not detected Normal NOT DETECTED [facility] Comment on above: Result Comment: When diagnostic [...] for this test is supported by the [place] of Health and Human Service's declaration that [...] used). Performed By: #### C VDTBH #### [facility] Laboratory [address] [place] [address] [address] Felisa Trujillo LACTATE/LACTIC ACIDon 2021 Lactate [Moles/Vol] 1.0 mmol/L Normal 0.4-2.0 [facility] Comment on above: Performed By: #### L ACT ####[facility] [address] [place] [address]Dr. Felisa Trujillo PH VENOUS BLOODon 11-02-2021 PCO2 VENOUS 40.3 mmHg Normal 40.0-52.0 [facility] Comment on above: Performed By: #### P HVEN ####[facility] [address] [place] [address]Dr. Felisa Trujillo pH VENOUS 7.431 Critically high 7.330-7.430 [facility] Comment on above: Performed By: #### P HVEN ####[facility] [address] [place] [address]Dr. Felisa Trujillo PROF 14(COMP METB)on 022 Albumin [Mass/Vol] 4.1 g/dL Normal 3.4-5.0 [facility] Comment on above: Performed By: #### H STROPN, CMP, BNP ####[facility] [address] [place] [address]Dr. Felisa Trujillo Albumin/Globulin [Mass ratio] 1.1 {ratio} Normal [facility] Comment on above: Performed By: #### H STROPN, CMP, BNP ####[facility] [address] [place] [address]Dr. Felisa Trujillo ALP [Catalytic activity/Vol] 120 U/L Critically high 46-116 [facility] Comment on above: Performed By: #### H STROPN, CMP, BNP ####[facility] [address] [place] [address]Dr. Felisa Trujillo ALT [Catalytic activity/Vol] 29 U/L Normal 14-59 [facility] Comment on above: Performed By: #### H STROPN, CMP, BNP ####[facility] [address] [place] [address]Dr. Felisa Trujillo Anion gap [Moles/Vol] 14.2 mmol/L Normal [facility] Comment on above: Performed By: #### H STROPN, CMP, BNP ####[facility] [address] [place] [address]Dr. Felisa Trujillo AST [Catalytic activity/Vol] 24 U/L Normal 15-37 [facility] Comment on above: Performed By: #### H STROPN, CMP, BNP ####[facility] [address] [place] [address]Dr. Felisa Trujillo Bilirubin [Mass/Vol] 0.6 mg/dL Normal 0.2-1.0 [facility] Comment on above: Performed By: #### H STROPN, CMP, BNP ####[facility] [address] [place] [address]Dr. Felisa Trujillo Calcium [Mass/Vol] 8.8 mg/dL Normal 8.5-10.1 [facility] Comment on above: Performed By: #### H STROPN, CMP, BNP ####[facility] [address]jesgs[address] [place] [address]Dr. Felisa Trujillo Chloride [Moles/Vol] 103 mmol/L Normal 98-107 [facility] Comment on above: Performed By: #### H STROPN, CMP, BNP ####[facility] [address] [place] [address]Dr. Felisa Trujillo CO2 [Moles/Vol] 25.3 mmol/L Normal 21.0-32.0 [facility] Comment on above: Performed By: #### H STROPN, CMP, BNP ####[facility] [address] [place], [place] [address]Dr. Felisa Trujillo Creatinine [Mass/Vol] 0.86 mg/dL Normal 0.55-1.02 [facility] Comment on above: Performed By: #### H STROPN, CMP, BNP ####[facility] [address] [place], [place] [address]Dr. Felisa Trujillo EGFR-AF UKRAINIAN >60 Normal >=60 [facility] Comment on above: Performed By: #### H STROPN, CMP, BNP ####[facility] [address] [place], [place] [address]Dr. Felisa Trujillo EGFR-NON AF UKRAINIAN >60 Normal >=60 [facility] Comment on above: Performed By: #### H STROPN, CMP, BNP ####[facility] [address] [place], [place] [address]Dr. Felsia Trujillo Globulin (S) [Mass/Vol] 3.6 g/dL Normal [facility] Comment on above: Performed By: #### H STROPN, CMP, BNP ####[facility] [address] [place], [place] [address]Dr. Felisa Trujillo Glucose [Mass/Vol] 90 mg/dL Normal 74-106 [facility] Comment on above: Performed By: #### H AJITH, CMP, BNP ####[facility] [address]xf[address] [place] [address]Dr. Felisa Trujillo Potassium [Moles/Vol] 3.5 mmol/L Normal 3.5-5.1 [facility] Comment on above: Performed By: #### H AJITH, CMP, BNP ####[facility] [address] [place] [address]Dr. Felisa Trujillo Protein [Mass/Vol] 7.7 g/dL Normal 6.1-8.2 [facility] Comment on above: Performed By: #### H AJITH, CMP, BNP ####[facility] [address] [place] [address]Dr. Felisa Trujillo Sodium [Moles/Vol] 139 mmol/L Normal 136-145 [facility] Comment on above: Performed By: #### H AJITH, CMP, BNP ####[facility] [id number] [address]Dr. Felisa Trujillo Urea nitrogen [Mass/Vol] 13.0 mg/dL Normal 7.0-18.0 [facility] Comment on above: Performed By: #### H AJITH, CMP, BNP ####[facility] [id number] [address]Dr. Felisa Trujillo Urea nitrogen/Creatinine [Mass ratio] 15.1 mg/mg Normal [facility] Comment on above: Performed By: #### H MICHAELPN, CMP, BNP ####[facility] [id number] [address]Dr. Felisa Trujillo PROTIMEon 11-02-2021 INR Coag (PPP) [Relative time] 0.99 {INR} Normal [facility] Comment on above: Performed By: #### P TT, PT #### [facility] Laboratory [address] [address] [address] Felisa Trujillo INR GUIDELINES SEE BELOW Normal The [facility] Comment on above: Result Comment: KAY RED INR: 2.0 - 3.0 CONDITIONS NOT LISTED BELOW 2.5 - 3.5 FOR PROSTHETIC HEART VALVE REPLACEMENT 2.5 - 3.5 RECURRENT THROMBOSIS Performed By: #### P TT, PT #### [facility] Laboratory [address] [place] [address] Dr. Felisa Trujillo PT Coag (PPP) [Time] 10.7 s Normal 9.0-11.6 [facility] Comment on above: Performed By: #### P TT, PT #### [facility] Laboratory [address] [address] [address] Felisa Trujillo PTTon 11-02-2021 aPTT Coag (Bld) [Time] 25.9 s Normal 22.3-36.2 [facility] Comment on above: Performed By: #### P TT, PT #### [facility] Laboratory [address] [place] [address] Dr. Felisa Trujillo TROPONIN, HIGH SENSITIVITYon 11-02-2021 HSTROP 8.7 pg/mL Normal 4.0-51.3 [facility] Comment on above: Result Comment: CUT- OFF POINTS HAVE BEEN ESTABLISHED BASED ON THE FOURTH UNIVERSAL DEFINITIONS OF MYOCARDIAL INFARCTION. THE UPPER REFERENCE LIMIT (URL) OF TROPONIN, DEFINED THE 99TH PERCENTILE OF cTnI DISTRIBUTION IN A REFERENCE POPULATION, HAS BEEN CONFIRMED THE DECISION THRESHOLD FOR AK DIAGNOSIS. Performed By: #### H STROPN, CMP, BNP #### [facility] Laboratory [address] [place] [address] Dr. Felisa Trujillo Covid-19 PCR (CVDTB)on SARS-CoV-2 (COVID-19) RNA DUGLAS+probe Ql (Unsp spec) Not detected Normal NOT DETECTED The [facility] Comment on above: Result Comment: This test is not yet approved or cleared by the [place] FDA. When there are no FDA-approved or cleared tests available, and other criteria are met, FDA can make tests available under an emergency access mechanism called an Emergency Use Authorization (EUA). The EUA for this test is supported by the [employer] of Health and Human Service's (HHS's) declaration [...] consistent with SARS-CoV-2. Performed By: #### [employer] #### [facility] Laboratory [address] [place], [place] [address] Dr. Felisa Trujillo XR CHEST 2 Von [...] by: MEHNAZ SANTIAGO Date: 2021-09-02 14:39 Normal [facility] Lab - AP Resultson 9 Lab - AP Results [id number]#1.00 OTGTIFF Normal [facility] Pathology Sendout Teston Pathology Send Out. See Report Normal [facility] Comment on above: Order Comment: left ring finger , cyst tendon sheath Performed By: #### 2 [id number] ####[facility] (DEFAULT)[address] [place] [address] Coding Summaryon 02-08-2019 Coding Summary CODING DATE: 02/08/2019 [facility] STATUS: Home PAYOR: Medicare MC APC DESCRIPTION 5112 Level 2 Musculoskeletal Procedures ADMIT DX: REASON FOR VISIT DX: M65.342 Trigger finger, left ring finger FINAL DX: PRINCIPAL: M65.342 Trigger finger, left ring finger SECONDARY: M67.442 Ganglion, left hand J44.9 Chronic obstructive pulmonary disease, unspecified PYMT PROC APC STAT DESCRIPTION DOCTOR NAME DATE 18193 5112 J1 Excision of lesion of Daquan [...] Cassy Bradley Date Saved: 02/08/2019 11:52 am [facility] Consent Formson 02-05-2019 Consent Forms [id number]#1.00 [facility] Discharge Instructionson Discharge Instructions [id number]#1.00 [facility] History and Physicalon 02-05 History and Physical [id number]#1.00 [facility] MAGR Intraoperative Recordon 02-05-2019 MAGR Intraoperative Record MAGR Intra-Op Record Summary Primary Physician: Daquan Antunez DO Finalized Date/Time: 02/05/19 07:41:01 Pt. Name: KARYNSHEY/Sex: 1950 FEMALE Med Rec #: [id number] Physician: Daquan Antunez DO Financial #: [id number] Pt. Type: D Room/Bed: / Admit/Disch: 02/04/19 [...] Role Performed Surgeon - Primary Anesthesiologist of Director [employer] Record Time In 02/04/19 15:31:00 02/04/19 15:31:00 02/04/19 15:31:00 Time Out 02/04/19 16:08:00 02/04/19 16:08:00 02/04/19 16:08:00 Procedure Trigger Finger Release Trigger Finger Release Trigger Finger Release Last Modified By: Toshia Plascencia RN, Barbara RN Long, Barbara RN 02/04/19 16:16:05 02/04/19 16:16:05 02/04/19 16:16:05 Entry 4 Entry 5 Case Attendee Paloma Esparza Regina CST Role Performed Scrub Personnel Network Cabler Time In 02/04/19 15:31:00 02/04/19 15:31:00 Time [...] Modify Pick List 02/05/19 07:40 MHBLONG Modify Pick List [facility] Medication Managementon 01-09 Medication Management [id number]#1.00 [facility] Provider Orderson 02-05-2019 Provider Orders [id number]#1.00 [facility] Anesthesia Noteon 02-04-2019 Anesthesia Note [...] Problems Chronic back pain / SNOMED CT 792390866 / Confirmed Former smoker / SNOMED CT 69368334 / Confirmed GERD (gastroesophageal reflux disease) / SNOMED CT 843316555 / Confirmed Scar tissue / SNOMED CT 199900357 / Confirmed Sleep apnea / SNOMED CT 609638725 / Confirmed Histories Family History: No family history items have been selected or recorded. Procedure history: Tonsillectomy (398887097). Epidural injection of lumbar spine using fluoroscopic guidance (9804173952). Social History Alcohol Assessment Use: Current. Beer, [...] rhythm. Review / Management Laboratory Results Plan [place] [employer] Anesthesiologists#(ASA ) physical status classification: [...] on: 02/04/2019 15:44 EDT] Alirio Mcclellan MD [facility] Inpatient Patient Summaryon 02-04-2019 [place] [address] Patient Discharge Instructions Name: SHEY OBRIEN : 52 Patient Address: [address] [place] [address] Primary Care Provider: Name: LATRELL JACK After you are discharged if you find you have any questions, please, call [phone] ext [phone] to speak to a nurse. Discharge Diagnosis: Trigger finger Prescription Information: If you have been given a prescription for narcotics, seek immediate medical attention if you have any difficulty breathing or any sudden status changes such as confusion and sleepiness. If you or anyone you know is experiencing suicidal thoughts, mental health, alcohol and/or drug addiction problems; contact the [facility] 30/01 Crisis Hotline -Text 4HOPE to 473651. If you received any narcotics, sedation, or [...] business decisions or sign any legal documents [facility] would like to thank you for allowing us to assist you with your healthcare needs. The following includes patient education materials and information regarding your injury/illness. SHEY OBRIEN has been given the following list of follow-up instructions, prescriptions, and patient education materials: Follow-up Instructions With: Address: When: Daquan Antunez [address], [address] [place], [place] [id number] Business (2) 02/12/2019 2:00 PM With: Address: When: LATRELL JACK [address] [place], [place] [id number] Business (1) Medications During the course of [...] awake -DO NOT lift heavy objects or fermenter champagne forcefully with the affected hand -DO NOT [...] or concerns, please call the office at [phone] or go to the emergency room -Follow [...] for Disease Control and Prevention March 2014 [facility] MAGR Postoperative Recordon 02-04-2019 MAGR Postoperative Record MAGR Phase II Record Summary Primary Physician: Daquan Antunez DO Finalized Date/Time: 02/04/19 17:11:50 Pt. Name: SHEY OBRIEN/Sex: 1950 FEMALE Med Rec #: [id number] Physician: Daquan Antunez DO Financial #: [id number] Pt. Type: D Room/Bed: / Admit/Disch: 02/04/19 [...] Signed By: Jamil Garibay RN 02/04/19 17:11 [facility] Preoperative Recordon 0 02-04-2019 [facility] Preoperative Record MAGR Pre-Op Record Summary Primary Physician: Daquan Antunez DO Finalized Date/Time: 02/04/19 15:37:19 Pt. Name: SHEY OBRIEN NORMAN /Sex: 1950 FEMALE Med Rec #: [id number] Physician: Daquan Antunez DO Financial #: [id number] Pt. Type: D Room/Bed: / Admit/Disch: 02/04/19 [...] By: Toshia Plascencia RN 02/04/19 15:37 Normal [facility] Operative Report - Surgeon/P shalini 02-04-2019 [...] cc of 1% lidocaine injected locally by ma )transverse incision was made over the A1 [...] on: 02/04/2019 16:37 EDT] Daquan Antunez DO [facility] Patient Handouton 02-04-[address] OHARA POST OPERATIVE INSTRUCTIONS FOR FINGER SURGERY/MALLET FINGER REPAIR SURGEONS WRITTEN INSTRUTCTIONS:' -Keep your hand elevated above your elbow for the first 24 hours after surgery and apply an ice bag at intervals for the first 24 hours -Wiggle the unaffected fingers frequently while awake -DO NOT lift heavy objects or fermenter champagne forcefully with the affected hand -DO NOT [...] or concerns, please call the office at [phone] or go to the emergency room -Follow up as scheduled [facility] Progress Note - Nurseon 01-08 Progress Note - Nurse Spoke with pt regarding arrival time of 1145 and NPO status. Verbalized understanding. 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 Verbalized understanding. [Electronically Signed on: 02/01/2019 14:53 EDT] Kika Akers RN [Verified on: 02/01/2019 14:53 EDT] Kika Akers RN [facility] Coding Summaryon 01-29-2019 Coding Summary CODING DATE: 01/29/2019 [facility] STATUS: Home PAYOR: Medicare MC APC [...] Cueto Date Saved: 01/29/2019 01:42 pm Normal [facility] .Auto Diff 1on 01-28-2019 Auto Dickenson % 8 % Normal 1-12 [facility] Comment on above: Performed By: #### 7 [id number], [id number] #### [facility] (DEFAULT) [address] [place] [address] Baso Abs# 0.0 x10 Normal 0.0-0.2 [facility] Comment on above: Performed By: #### 7 [id number], [id number] #### [facility] (DEFAULT) [address] [place] [address] Basophils/100 WBC (Bld) 0.4 % Normal 0.2-2.0 [facility] Comment on above: Performed By: #### 7 [id number], [id number] #### [facility] (DEFAULT) [address] [place] [address]8068 Eos Abs# 0.2 x10 Normal 0.0-0.4 [facility] Comment on above: Performed By: #### 7 [id number], [id number] #### [facility] (DEFAULT) [address] [place] [address] 87314 Eosinophils/100 WBC (Bld) 3.5 % Normal 0.9-4.0 [facility] Comment on above: Performed By: #### 7 [id number], [id number] #### [facility] (DEFAULT) [address] [place] [address] 68150 Lymphocytes (Bld) [#/Vol] 1.6 x10 Normal 1.3-2.9 [facility] Comment on above: Performed By: #### 7 [id number], [id number] #### [facility] (DEFAULT) [address] [place] [address] 71114 Lymphocytes/100 WBC (Bld) 32 % Normal 14-48 [facility] Comment on above: Performed By: #### 7 [id number], [id number] #### [facility] (DEFAULT) [address] [place] [address] Dickenson Abs# 0.4 x10 Normal 0.0-0.8 [facility] Comment on above: Performed By: #### 7 [id number], [id number] #### [facility] (DEFAULT) [address] [place] [address] 59058 Neut Abs# 2.8 x10 Normal 1.5-9.2 [facility] Comment on above: Performed By: #### 7 [id number], [id number] #### [facility] (DEFAULT) [address] [place] [address] 48886 Neutrophils/100 WBC (Bld) 56 % Normal 44-88 [facility] Comment on above: Performed By: #### 7 [id number], [id number] #### [facility] (DEFAULT) [address] [place] [address] 09982 CBC w/ Auto Diffon 9 Erythrocyte distribution width (RBC) [Ratio] 13.4 % Normal 11.5-15.0 [facility] Comment on above: Performed By: #### 7 [id number], [id number] #### [facility] (DEFAULT) [address] [place] [address] Hematocrit (Bld) [Volume fraction] 40.4 % Normal 33.7-40.4 [facility] Comment on above: Performed By: #### 7 [id number], [id number] #### [facility] (DEFAULT) [address] [place] [address] Hemoglobin (Bld) [Mass/Vol] 13.9 g/dL Normal 11.3-15.9 [facility] Comment on above: Performed By: #### 7 [id number], [id number] #### [facility] (DEFAULT) [address] [place] [address] Man Diff? Auto Normal [facility] Comment on above: Performed By: #### 7 [id number], [id number] #### [facility] (DEFAULT) [address] [place] [address] 86937 MCH (RBC) [Entitic mass] 31 pg Normal 24-34 [facility] Comment on above: Performed By: #### 7 [id number], [id number] #### [facility] (DEFAULT) [address] [place] [address] 84935 MCHC (RBC) [Mass/Vol] 34 g/dL Normal 26-37 [facility] Comment on above: Performed By: #### 7 [id number], [id number] #### [facility] (DEFAULT) [address] [place] [address] 41283 MCV (RBC) [Entitic vol] 90 fL Normal 81-100 [facility] Comment on above: Performed By: #### 7 [id number], [id number] #### [facility] (DEFAULT) [address] [place] [address] 02330 Platelet mean volume (Bld) [Entitic vol] 10.3 fL High 6.3-10.2 [facility] Comment on above: Performed By: #### 7 [id number], [id number] #### [facility] (DEFAULT) [address] [place] [address] 17191 Platelets (Bld) [#/Vol] 199 x10 Normal 138-427 [facility] Comment on above: Performed By: #### 7 [id number], [id number] #### [facility] (DEFAULT) [address] [place] [address] 70828 RBC (Bld) [#/Vol] 4.47 x10 Normal 3.70-5.30 [facility] Comment on above: Performed By: #### 7 [id number], [id number] #### [facility] (DEFAULT) [address] [place] [address] 02084 WBC (Bld) [#/Vol] 5.1 x10 Normal 3.5-10.5 [facility] Comment on above: Performed By: #### 7 [id number], [id number] #### [facility] (DEFAULT) [address] [place] [address]104 Vital Signs Date Time Vital Sign Value Performing Clinician Facility 02-24-2025 11:00-0400 Body height 160 cm Latrell Jack MD Work Phone: [facility] 02-24-2025 11:00-0400 Body mass index (BMI) [Ratio] 40.03 kg/m2 Latrell Jack MD Work Phone: [facility] 02-24-2025 11:00-0400 Body temperature 97.11 [degF] Latrell Jack MD Work Phone: [facility] 02-24-2025 11:00-0400 Body weight 102.51 kg Latrell Jack MD Work Phone: [facility] 02-24-2025 11:00-0400 Diastolic blood pressure 76 mm[Hg] Latrell Jack MD Work Phone: [facility] 02-24-2025 11:00-0400 Heart rate 106 /min Latrell Jack MD Work Phone: [facility] 02-24-2025 11:00-0400 Respiratory rate 22 /min Latrell Jack MD Work Phone: [facility] 02-24-2025 11:00-0400 SaO2% (BldA) [Mass fraction] 95 % Latrell Jack MD Work Phone: [facility] 02-24-2025 11:00-0400 Systolic blood pressure 162 mm[Hg] Latrell Jack MD Work Phone: [facility] 02-03-2025 15:56-0400 Body height 160.02 cm Latrell Jack MD Work Phone: [facility] 02-03-2025 15:56-0400 Body mass index (BMI) [Ratio] 38.4 kg/m2 Latrell Jack MD Work Phone: [facility] 02-03-2025 15:56-0400 Body weight 98.42 kg Latrell Jack MD Work Phone: [facility] 02-03-2025 15:56-0400 Diastolic blood pressure 96 mm[Hg] Latrell Jack MD Work Phone: [facility] 02-03-2025 15:56-0400 Heart rate 90 /min Latrell Jack MD Work Phone: [facility] 02-03-2025 15:56-0400 SaO2% (BldA) [Mass fraction] 92 % Latrell Jack MD Work Phone: [facility] 02-03-2025 15:56-0400 Systolic blood pressure 164 mm[Hg] Latrell Jack MD Work Phone: [facility] 12-16-2024 15:53-0400 Body temperature 98.2 [degF] Latrell Jack MD Work Phone: [facility] 12-16-2024 15:53-0400 Heart rate 84 /min Latrell Jack MD Work Phone: [facility] 12-16-2024 15:53-0400 Respiratory rate 18 /min Latrell Jack MD Work Phone: [facility] 12-16-2024 15:53-0400 SaO2% (BldA) [Mass fraction] 99 % Latrell Jack MD Work Phone: [facility] 12-16-2024 14:15-0400 Diastolic blood pressure 72 mm[Hg] Latrell Jack MD Work Phone: [facility] 12-16-2024 14:15-0400 Systolic blood pressure 144 mm[Hg] Latrell Jack MD Work Phone: [facility] 12-16-2024 09:00-0400 Body weight 100.3 kg Latrell Jack MD Work Phone: [facility] 12-13-2024 14:41-0400 Body height 160.02 cm Latrell Jack MD Work Phone: [facility] 12-04-2024 13:39-0400 Body height 160 cm Latrell [...] Center 08-07-2024 14:04-0500 Body height 162.6 cm [employer] PILLOWCASE CUTTER.CREATIVE ARTS THERAPIST Work Phone: [facility] 08-07-2024 14:04-0500 Body mass index (BMI) [Ratio] 34.84 kg/m2 [employer] PILLOWCASE CUTTER.CREATIVE ARTS THERAPIST Work Phone: [facility] 08-07-2024 14:04-0500 Body temperature 97.59 [degF] Katarzyna Miles PILLOWCASE CUTTER.CREATIVE ARTS THERAPIST Work Phone: [facility] 08-07-2024 14:04-0500 Body weight 92.08 kg Katarzyna [employer] PILLOWCASE CUTTER.CREATIVE ARTS THERAPIST Work Phone: [facility] 08-07-2024 14:04-0500 Diastolic blood pressure 72 mm[Hg] Katarzyna Miles PILLOWCASE CUTTER.CREATIVE ARTS THERAPIST Work Phone: [facility] 08-07-2024 14:04-0500 Heart rate 75 /min [employer] PILLOWCASE CUTTER.CREATIVE ARTS THERAPIST Work Phone: [facility] 08-07-2024 14:04-0500 Systolic blood pressure 151 mm[Hg] Katarzyna Miles PILLOWCASE CUTTER.CREATIVE ARTS THERAPIST Work Phone: [facility] 07-23-2024 12:49-0500 Body height 160 cm [facility] 5 Work Phone: [facility] 07-23-2024 12:49-0500 Body mass index (BMI) [Ratio] 37.45 kg/m2 [employer] 5 Work Phone: [facility] 07-23-2024 12:49-0500 Body temperature 98.01 [degF] P[employer] 5 Work Phone: [facility] 07-23-2024 12:49-0500 Body weight 95.9 kg P[employer] 5 Work Phone: [facility] 07-23-2024 12:49-0500 Diastolic blood pressure 73 mm[Hg] Pacc 5 Work Phone: [facility] 07-23-2024 12:49-0500 Heart rate 77 /min P[employer] 5 Work Phone: [facility] 07-23-2024 12:49-0500 Respiratory rate 20 /min Pacc 5 Work Phone: [facility] 07-23-2024 12:49-0500 SaO2% (BldA) [Mass fraction] 99 % Pacc 5 Work Phone: [facility] 07-23-2024 12:49-0500 Systolic blood pressure 153 mm[Hg] Pacc 5 Work Phone: [facility] 05-30-2024 15:36-0500 Body height 160 cm Sandra Arcos CV/CVN CV TSC SYSTEM OPERATOR Work Phone: [facility] 05-30-2024 15:36-0500 Body mass index (BMI) [Ratio] 38.26 kg/m2 Sandra Brownr CV/CVN CV TSC SYSTEM OPERATOR Work Phone: [facility] 05-30-2024 15:36-0500 Body weight 97.98 kg Sandra Brownr CV/CVN CV TSC SYSTEM OPERATOR Work Phone: [facility] 05-30-2024 15:36-0500 Diastolic blood pressure 82 mm[Hg] Sandra aEtonmor CV/CVN CV TSC SYSTEM OPERATOR Work Phone: [facility] 05-30-2024 15:36-0500 Systolic blood pressure 138 mm[Hg] Sandra Arcos CV/CVN CV TSC SYSTEM OPERATOR Work Phone: [facility] 05-15-2024 [...] 152.4 cm Xavier Boyd MD Work Phone: [facility] 04-29-2024 10:55-0400 Body mass index (BMI) [Ratio] 42.58 kg/m2 Xavier Boyd MD Work Phone: [facility] 04-29-2024 10:55-0400 Body temperature 98.49 [degF] Xavier Boyd MD Work Phone: [facility] 04-29-2024 10:55-0400 Body weight 98.88 kg Xavier Boyd MD Work Phone: [facility] 04-29-2024 10:55-0400 Diastolic blood pressure 65 mm[Hg] Xavier Boyd MD Work Phone: [facility] 04-29-2024 10:55-0400 Heart rate 90 /min Xavier Boyd MD Work Phone: [facility] 04-29-2024 10:55-0400 Systolic blood pressure 144 mm[Hg] Xavier Boyd MD Work Phone: [facility] 03-20-2024 13:23-0400 Diastolic blood pressure 81 mm[Hg] Leos Sarmini [facility] 03-20-2024 13:23-0400 Heart rate 66 /min Leos Sarmini [facility] 03-20-2024 13:23-0400 Mean blood pressure 112 mm[Hg] Leos Sarmini [facility] 03-20-2024 13:23-0400 Respiratory rate 15 /min Leos Sarmini [facility] 03-20-2024 13:23-0400 SaO2% (BldA) [Mass fraction] 94 % Leos Sarmini [facility] 03-20-2024 13:23-0400 Systolic blood pressure 173 mm[Hg] Leos Sarmini [facility] 03-20-2024 13:15-0400 Diastolic blood pressure 78 mm[Hg] Leos Sarmini [facility] 03-20-2024 13:15-0400 Heart rate 64 /min Leos Sarmini [facility] 03-20-2024 13:15-0400 Mean blood pressure 105 mm[Hg] Leos Sarmini [facility] 03-20-2024 13:15-0400 Respiratory rate 13 /min Leos Sarmini [facility] 03-20-2024 13:15-0400 SaO2% (BldA) [Mass fraction] 96 % Leos Sarmini [facility] 03-20-2024 13:15-0400 Systolic blood pressure 159 mm[Hg] Leos Sarmini [facility] 03-20-2024 13:05-0400 Diastolic blood pressure 76 mm[Hg] Leos Sarmini [facility] 03-20-2024 13:05-0400 Heart rate 64 /min Leos Sarmini [facility] 03-20-2024 13:05-0400 Mean blood pressure 99 mm[Hg] Leos Sarmini [facility] 03-20-2024 13:05-0400 Respiratory rate 12 /min Leos Sarmini [facility] 03-20-2024 13:05-0400 SaO2% (BldA) [Mass fraction] 96 % Leos Sarmini [facility] 03-20-2024 13:05-0400 Systolic blood pressure 145 mm[Hg] Leos Sarmini [facility] 03-20-2024 12:58-0400 Body temperature 97.16 [degF] Leos Sarmini [facility] 03-20-2024 12:50-0400 Respiratory rate 15 /min Leos Sarmini [facility] 03-20-2024 12:45-0400 Respiratory rate 18 /min Leos Ameyamini [facility] 03-20-2024 11:14-0400 Blood Pressure Location Leos Ameyamini [facility] 03-20-2024 11:14-0400 Body temperature 97.7 [degF] Leos Ameyamini [facility] 03-20-2024 11:14-0400 Respiratory rate 18 /min Leos Ameyamini [facility] 03-07-2024 11:21-0400 Body height 160 cm Diomedes [...] [facility] 02-26-2024 09:12-0400 Blood Pressure Location Leos Ameyamini [facility] 02-26-2024 09:12-0400 Diastolic blood pressure 81 mm[Hg] Leos Sarmini [facility] 02-26-2024 09:12-0400 Heart rate 66 /min Leos Sarmini [facility] 02-26-2024 09:12-0400 Respiratory rate 16 /min Leos Sarmini [facility] 02-26-2024 09:12-0400 Systolic blood pressure 131 mm[Hg] Leos Sarmini [facility] 10-13-2023 09:42-0400 Diastolic blood pressure 80 mm[Hg] Pa NILL [facility] 10-13-2023 09:42-0400 Heart rate 69 /min Pa NILL [facility] 10-13-2023 09:42-0400 Mean blood pressure 102 mm[Hg] Pa NILL [facility] 10-13-2023 09:42-0400 Respiratory rate 15 /min Pa NILL [facility] 10-13-2023 09:42-0400 SaO2% (BldA) [Mass fraction] 97 % Pa NILL [facility] 10-13-2023 09:42-0400 Systolic blood pressure 146 mm[Hg] Pa NILL [facility] 10-13-2023 09:32-0400 Diastolic blood pressure 76 mm[Hg] Pa NILL [facility] 10-13-2023 09:32-0400 Heart rate 67 /min Pa NILL [facility] 10-13-2023 09:32-0400 Mean blood pressure 94 mm[Hg] Pa NILL [facility] 10-13-2023 09:32-0400 Respiratory rate 20 /min Pa NILL [facility] 10-13-2023 09:32-0400 SaO2% (BldA) [Mass fraction] 95 % Pa NILL [facility] 10-13-2023 09:32-0400 Systolic blood pressure 129 mm[Hg] Pa NILL [facility] 10-13-2023 09:27-0400 Diastolic blood pressure 71 mm[Hg] Pa NILL [facility] 10-13-2023 09:27-0400 Heart rate 70 /min Pa NILL [facility] 10-13-2023 09:27-0400 Mean blood pressure 92 mm[Hg] Pa NILL [facility] 10-13-2023 09:27-0400 Respiratory rate 15 /min Pa NILL [facility] 10-13-2023 09:27-0400 SaO2% (BldA) [Mass fraction] 96 % Pa NILL [facility] 10-13-2023 09:27-0400 Systolic blood pressure 134 mm[Hg] Pa NILL [facility] 10-13-2023 09:17-0400 Body temperature 97.16 [degF] Pa NILL [facility] 10-13-2023 09:10-0400 Respiratory rate 16 /min Pa NILL [facility] 10-13-2023 09:05-0400 Respiratory rate 16 /min Pa NILL [facility] 10-13-2023 08:03-0400 Body temperature 97.34 [degF] Pa WEBB [facility] 08-11-2023 09:53-0500 Body height 160 cm Latrell [...] 140 mm[Hg] Latrell Jack MD Work Phone: [facility] Healthcare Encounters Encounter Date Encounter Type Care Provider Facility Start: 02-24-2025 End: 02-24-2025 Bamboo flowsheet Latrell Jack MD Work Phone: [facility] Start: 02-24-2025 End: 02-24-2025 Bamboo flowsheet Latrell Jack MD Work Phone: [facility] Start: 02-24-2025 End: 02-24-2025 Office outpatient visit 25 minutes Latrell Jack MD Work Phone: [facility] Comment on above: Essential hypertensi on, benign (Primary Dx); Chronic obstructive pulmonary disease, unspecified COPD type (HCC); Primary insomnia; Primary osteoarthritis of both knees; Breast cancer screening by mammogram; Former smoker Start: 02-24-2025 End: 02-24-2025 ambulatory LATRELL JACK Not Available Start: 02-03-2025 End: 02-03-2025 ambulatory Latrell Jack MD Work Phone: [facility] Work Phone: Start: 02-03-2025 End: 02-03-2025 Patient encounter procedure Diomedes Fitzgerald DO -[facility] [place] Work Phone: Start: 12-30-2024 End: 12-30-2024 ambulatory Talat Arguello MD Facility:[facility] Start: 12-13-2024 Non-patient / Non-visit Latrell kendall MD Work Phone: [facility] Work Phone: Start: 12-12-2024 End: 12-16-2024 Evaluation and management of inpatient Latrell Jack MD Work Phone: [address] Work Phone: Start: 12-12-2024 End: 12-12-2024 Clinisync Result Encounter Generic External Data Provider [facility] External Department Unsolicited Start: 12-12-2024 End: 12-12-2024 Clinisync Result Encounter Generic External Data Provider [facility] External Department Unsolicited Start: 12-12-2024 End: 12-12-2024 Emergency department patient visit Elmer Kohli Facility:[facility] Start: 12-04-2024 End: 12-04-2024 Office outpatient visit 15 minutes Latrell Jack MD Work Phone: [facility] Comment on above: Degenerative lumbar spinal stenosis (Primary Dx); Chronic obstructive pulmonary disease, unspecified COPD type (CMS/HCC) Start: 12-04-2024 End: 12-04-2024 ambulatory LATRELL JACK Not Available Start: 10-30-2024 End: 10-30-2024 Refill Latrell Jack MD Work Phone: [facility] Comment on above: Primary insomnia; Chronic obstructive pulmonary disease, unspecified COPD type (CMS/HCC) Start: 10-29-2024 End: 10-29-2024 Refill Latrell Jack MD Work Phone: [facility] Comment on above: Chronic obstructive pulmonary disease, unspecified COPD type (CMS/HCC); Primary insomnia Start: 09-26-2024 End: 09-26-2024 ambulatory SANDRA EATONMOOrtega Not Available Start: 08-27-2024 End: 08-27-2024 Bamboo flowsheet Latrell Jack MD Work Phone: [facility] Start: 08-27-2024 End: 08-27-2024 Bamboo flowsheet Latrell Jack MD Work Phone: [facility] CW FM Start: 08-27-2024 End: 08-27-2024 Clinisync Result Encounter Latrell Jack MD Work Phone: [facility] External Department Unsolicited Start: 08-27-2024 End: 08-27-2024 ambulatory LATRELL JACK Not Available Start: 08-27-2024 End: 08-27-2024 Patient encounter procedure Latrell Jack MD Work Phone: [facility] Healthcare Work Phone: Start: 08-27-2024 End: 08-27-2024 Postop follow up visit related to original px Latrell Jack MD Work Phone: [facility] Comment on above: Medicare annual well ness visit, subsequent (Primary Dx); Prediabetes; Dyslipidemia ([facility]); Encounter for long-term (current) use of medications; Essential hypertension, benign (CMS/HCC); Class 2 severe obesity due to excess calories with serious comorbidity and body mass index (BMI) of 36.0 to 36.9 in adult (CMS/HCC); Chronic obstructive pulmonary disease, unspecified COPD type (CMS/HCC); 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CMS/HCC) Start: 08-07-2024 End: 08-07-2024 Patient encounter procedure Katarzyna Snyder PILLOWCASE CUTTER.CREATIVE ARTS THERAPIST Work Phone: General Surgery Comment on above: Postoperative visit (Primary Dx) Start: 08-07-2024 End: 08-07-2024 ambulatory KATARZYNA SNYDER Facility:[facility] Start: 07-31-2024 End: 07-31-2024 Telephone encounter Latrell Jack MD Work Phone: [facility] Start: 07-30-2024 End: 07-30-2024 Refill Latrell Jack MD Work Phone: [facility] Comment on above: Primary insomnia Start: 07-24-2024 End: 07-26-2024 Evaluation and management of inpatient XAVIER GRETCHEN BOYD Facility:[facility] Start: 07-23-2024 End: 07-23-2024 ambulatory LATRELL JACK Facility:[facility] Start: 07-23-2024 End: 07-23-2024 Clinisync Result [...] Start: 07-23-2024 End: 07-23-2024 Preprocedural examination done [place] [address] Work Phone: [facility] Work Phone: Start: 07-23-2024 End: 07-23-2024 ambulatory LATRELL JACK Facility:[facility] Start: 07-23-2024 Encounter for other preprocedural examination LATRELL JACK [facility] Start: 06-29-2024 End: 07-15-2024 Telephone encounter Sandra Arcos NP [facility] Start: 06-24-2024 End: 06-24-2024 ambulatory [facility] Start: 06-13-2024 End: 06-13-2024 Telephone encounter Latrell Jack MD Work Phone: [facility] Comment on above: Medication Question Start: 06-10-2024 End: 06-10-2024 ambulatory Talat Arguello MD Facility:[facility] Start: 05-30-2024 End: 05-30-2024 Office outpatient visit 25 minutes Sandra Arcos NP Work Phone: [facility] [place] [facility] Comment on above: Memory loss (Primary Dx); Severe episode of recurrent major depressive disorder, 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); Generalized anxiety disorder (CMS/HCC); EDWIN on CPAP; Other chronic pain; Other insomnia Start: 05-30-2024 End: 05-30-2024 ambulatory SANDRA ARCOS Not Available Start: 05-30-2024 End: 05-30-2024 Bamboo flowsheet Sandra Arcos CV/CVN CV TSC SYSTEM OPERATOR Work Phone: [facility] Start: 05-30-2024 End: 05-30-2024 Bamboo flowsheet Sandra Arcos CV/CVN CV TSC SYSTEM OPERATOR Work Phone: [facility] Start: 05-27-2024 End: 05-27-2024 ambulatory Talat Arguello MD Facility: [place] Start: 05-15-2024 End: 05-15-2024 Office outpatient visit 25 minutes Latrell Jack MD Work Phone: [facility] Comment on above: Essential hypertensi on, [...] 05-06-2024 End: 05-06-2024 ambulatory Talat Arguello MD Facility:[facility] Start: 05-04-2024 End: 05-06-2024 ambulatory Xavier Boyd MD Work Phone: [facility] Comment on above: 07.24.24 Cure (Lap P araesophageal Hernia Repair/EGD 4 hours los 1) Start: 05-04-2024 End: 05-06-2024 Preprocedural examination done Xavier Boyd MD Work Phone: [facility] Start: 04-29-2024 End: 04-29-2024 ambulatory DAFNE SPEARS Facility:[facility] Start: 04-29-2024 End: 04-29-2024 Office outpatient new 45 minutes Xavier Boyd MD Work Phone: General Surgery Comment on above: Paraesophageal herni a (Primary Dx) Start: 04-22-2024 End: 04-22-2024 Telephone encounter Ashlie Calderon MA General Surgery Start: 04-15-2024 End: 04-15-2024 ambulatory Talat Arguello MD Facility:[facility] Start: 04-11-2024 End: 04-11-2024 Patient encounter procedure Mao Morrow PhD Work Phone: [facility] Comment on above: Memory loss (Primary Dx); Word finding difficulty; EDWIN on CPAP; Other insomnia; Other chronic pain; Generalized anxiety disorder (CMS/HCC); Severe episode of recurrent major depressive disorder, without psychotic features (HCC) ([facility]/HCC) Start: 04-11-2024 End: 04-11-2024 ambulatory LATRELL JACK Not Available Start: 03-26-2024 End: 03-26-2024 Patient encounter procedure Mao Morrow PhD Work Phone: [facility] Comment on above: Memory loss (Primary Dx); Word finding difficulty; EDWIN on CPAP; Other insomnia; Other chronic pain; Generalized anxiety disorder (CMS/HCC) Start: 03-26-2024 End: 03-26-2024 ambulatory MAO MORROW Not Available Start: 03-26-2024 End: 03-26-2024 Bamboo flowsheet Mao Morrow PhD Work Phone: [facility] Start: 03-26-2024 End: 03-26-2024 Bamraymono flowsheet Mao Morrow PhD Work Phone: [facility] Start: 03-26-2024 End: 03-26-2024 ambulatory Leos Talal Sarmini Facility:[facility] Start: 03-26-2024 End: 03-26-2024 Patient encounter procedure Leos Talal Sarmini [facility] Start: 03-25-2024 End: 03-25-2024 ambulatory DIOMEDES FITZGERALD Not Available Start: 03-20-2024 End: 03-20-2024 ambulatory Leos Talal Sarmini Facility:[facility] Start: 03-20-2024 End: 03-20-2024 Patient encounter procedure Leos Talal Sarmini [facility] Start: 03-07-2024 End: 03-07-2024 Bamboo flowsheet Diomedes Fitzgerald DO Work Phone: [facility] [place] [facility] Start: 03-07-2024 End: 03-07-2024 Bamboo flowsheet Diomedes Fitzgerald DO Work Phone: [facility] [place] [facility] Start: 03-07-2024 End: 03-07-2024 Clinisync Result Encounter Diomedes Fitzgerald DO Work Phone: [facility] External Department Unsolicited Start: 03-07-2024 End: 03-07-2024 Office outpatient visit 40 minutes Diomedes Fitzgerald DO Work Phone: [facility] [place] [facility] Comment on above: Memory loss (Primary Dx); 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CMS/HCC); Mild cognitive impairment; EDWIN (obstructive sleep apnea) Start: 03-07-2024 End: 03-07-2024 ambulatory DIOMEDES FITZGERALD Not Available Start: 02-26-2024 End: 02-26-2024 ambulatory Leos Talal Sarmini Facility:[facility] Start: 02-26-2024 End: 02-26-2024 Patient encounter procedure Leosprosper Houmini [facility] Start: 02-13-2024 ambulatory Pa NILL Facility:[facility] Start: 10-13-2023 End: 10-13-2023 ambulatory Pa R NILL Facility:[facility] Start: 10-13-2023 End: 10-13-2023 Patient encounter procedure Pa R NILL [facility] Start: 09-12-2023 End: 09-12-2023 ambulatory Pa R NILL Facility:[facility] Start: 09-05-2023 ambulatory Pa NILL Facility:[facility] Start: 08-11-2023 Bamboo flowsheet Latrell Jack MD Work Phone: [facility] Start: 08-11-2023 Bamboo flowsheet Latrell Jack MD Work Phone: [facility] Start: 08-11-2023 End: 08-11-2023 Office outpatient visit 25 minutes Latrell Jack MD Work Phone: [facility] Comment on above: Essential hypertensi on, [...] Encounter for preprocedural laboratory examination MARNIE Fuentes [facility] Start: 09-07-2021 End: 09-07-[address] LATRELL JACK Facility:[facility] Start: 09-07-2021 End: 09-07-2021 Encounter for preprocedural laboratory examination DR LATRELL JACK Facility:[facility] Start: 09-03-2021 Encounter for preprocedural cardiovascular examination [facility] Alfredo [facility] Start: 09-02-2021 End: 09-03-2021 ambulatory [...] Specimen Type: BLOOD SPEC IMEN Ordering Facility: [facility] Address: [address] [place] [address] Performed By: #### 2 [id number], HSTNT, [id number], [id number] #### [facility] CLIA [id number] [address] [place] [address] [place] Start: 07-23-2024 [facility] CBC W AUTO DIFF BLD Generic External Data Provider Start: 03-20-2024 Esophagogastroduodenoscopy Dafne Dandy doris Start: 03-07-2024 ALL FOLIC ACID Diomedes Fitzgerald DO Work Phone: Start: 03-07-2024 ALL THYROID STIM HORMONE Diomedes Fitzgerald D O Work Phone: Start: 11-28-2023 Mammography Diomedes Fitzgerald DO Work Phone: Start: 10-13-2023 Colonoscopy Diomedes Fitzgerald DO Work Phone: Start: 10-13-2023 Colonoscopy Pa WEBB Hand tendon repaired Pa WEBB Open reduction of fr acture of ankle with internal fixation Pa WEBB Repair of meniscus Pa MORALES Tonsillectomy Pa WEBB Plan of Treatment Date Care Activity Detail Author Start: 10-12-2033 Screening for malign ant neoplasm of colon [facility] Start: 07-26-2027 Diabetes Screening Diabetes Screenin [facility] Start: 07-23-2027 Diabetes Screening Diabetes Screenin [facility] Start: 09-21-2026 RSV Vaccine (1 - 1-d ose 75+ series) RSV Vaccine (1 - 1-dose 75+ series) [facility] Start: 08-07-2025 End: 09-06-2025 CT Chest WO contrast CT CHEST WO IVCON Radiology Routine Postoperative visit Expected: 08/07/2025, Expires: 09/06/2025 [facility] Work Phone: Comment on above: Expected: 08/07/2025 , Expires: 09/06/2025 Start: 04-29-2025 End: 04-29-2025 Patient encounter procedure 04/29/2025 1:15 PM EDT Office Visit [facility] [address] [place] [phone] Latrell Jack MD [address] [place] [phone] [facility] Start: 03-10-2025 Influenza vaccination Influenza Vacc ine (#1) [facility] Start: 02-24-2025 End: 02-24-2026 CT Chest for screening WO contrast CT lung screening low dose Imaging Routine Former smoker Expected: 02/24/2025, Expires: 02/24/2026 [facility] Comment on above: Expected: 02/24/2025 , Expires: 02/24/2026 Start: 02-24-2025 End: 04-26-2026 MG Breast - bilateral Screening Bilateral screening mammogram Imaging Routine Breast cancer screening by mammogram Expected: 02/24/2025, Expires: 04/26/2026 [facility] Work Phone: Comment on above: Expected: 02/24/2025 , Expires: 04/26/2026 Start: 02-24-2025 End: 02-24-2025 Patient encounter procedure [facility] Comment on above: Arrived Start: 02-03-2025 End: 02-03-2025 Patient encounter procedure 02/03/2025 4:00 PM EDT Office Visit [facility] [address] [place] [phone] Diomedes Fitzgerald DO [address] [place] [address] [facility] Start: 12-30-2024 End: 12-30-2024 Patient encounter procedure 12/30/2024 1:00 PM EDT Office Visit [facility] [address] [place] [id number] Diomedes Fitzgerald DO [address] [place] [address] [facility] Start: 12-16-2024 [facility] Start: 12-12-2024 Referral to Director Franchise Sales [facility] Start: 12-12-2024 Hospital admission [facility] Start: 11-27-2024 Screening for malign ant neoplasm of breast Mammogram [facility] Start: 09-26-2024 End: 09-26-2024 Patient encounter procedure [facility] [place] [facility] Start: 08-27-2024 End: 08-27-2025 [...] or Plasma Lipid panel Lab Routine Dyslipidemia ([facility]/HCC) Expected: 08/27/2024 (Approximate), Expires: 08/27/2025 [facility] Comment on above: Expected: 08/27/2024 (Approximate), Expires: 08/27/2025 Start: 08-27-2024 End: 08-27-2025 Thyrotropin [Units/volume] in Serum or Plasma TSH Lab Routine Class 2 severe obesity due to excess calories with serious comorbidity and body mass index (BMI) of 36.0 to 36.9 in adult ([facility]) Expected: 08/27/2024 (Approximate), Expires: 08/27/2025 [facility] Comment on above: Expected: 08/27/2024 (Approximate), Expires: 08/27/2025 Start: 08-16-2024 End: 08-16-2024 Patient encounter procedure 08/16/2024 9:00 AM EST Office Visit [facility] [address] [place] [address] Latrell Jack MD [address] [place] [address] [facility] Start: 07-24-2024 End: 07-24-2024 Admission to same day surgery center 07/24/2024 10:51 AM EST - 07/24/2024 3:42 PM EST Surgery Admitting [address] [place] [address] Xavier Boyd MD [address] [place], [place] [id number] LAPAROSCOPIC RPR PARAESOPHAGEAL HERNIA W/O FUNDOPLASTY W/ [...] 07-10-2024 Advance Directive Discussion Advance Directive Discussion [facility] Start: 06-29-2024 End: 10-29-2024 aPTT in Platelet poor plasma by Coagulation assay ACTIVATED PARTIAL THROMBOPLASTIN TIME Lab Routine Preoperative examination Paraesophageal hernia Abnormal coagulation profile Expected: 06/29/2024, Expires: 10/29/2024 [facility] Comment on above: Expected: 06/29/2024 , Expires: 10/29/2024 Start: 06-29-2024 End: 10-29-2024 CBC W Auto Differential panel - Blood COMPLETE BLOOD COUNT AND DIFFERENTIAL Lab Routine Preoperative examination Paraesophageal hernia Expected: 06/29/2024, Expires: 10/29/2024 [facility] Comment on above: Expected: 06/29/2024 , Expires: 10/29/2024 Start: 06-29-2024 End: 10-29-2024 Comprehensive metabolic 2000 panel - Serum or Plasma COMPREHENSIVE METABOLIC PANEL Lab Routine Preoperative examination Paraesophageal hernia Expected: 06/29/2024, Expires: 10/29/2024 [facility] Comment on above: Expected: 06/29/2024 , Expires: 10/29/2024 Start: 06-29-2024 End: 10-29-2024 PT panel - Platelet poor plasma by Coagulation assay PROTHROMBIN TIME Lab Routine Preoperative examination Paraesophageal hernia Abnormal results of liver function studies Expected: 06/29/2024, Expires: 10/29/2024 [facility] Comment on above: Expected: 06/29/2024 , Expires: 10/29/2024 Start: 06-29-2024 End: 10-29-2024 TYPE AND SCREEN,30 DAY TYPE AND SCREEN,30 DAY Blood Bank Routine Preoperative examination Paraesophageal hernia Expected: 06/29/2024, Expires: 10/29/2024 [facility] Comment on above: Expected: 06/29/2024 , Expires: 10/29/2024 Start: 05-30-2024 End: 05-30-2024 Patient encounter procedure [facility] [place] [facility] Comment on above: Arrived Start: 05-15-2024 End: 05-15-2024 Patient encounter procedure 05/15/2024 10:00 AM EST Office Visit [facility] [address] [place] [address] Latrell Jack MD [address] [place] [address] [facility] Start: 04-29-2024 End: 04-29-2024 Patient encounter procedure 04/29/2024 11:00 AM EDT Office Visit General Surgery [address] [address] Xavier Boyd MD [address] [place] [address] Hiatal Hernia General Surgery Comment on above: Hiatal Hernia Start: 04-11-2024 End: 04-11-2024 Patient encounter procedure 04/11/2024 9:00 AM EDT [facility] [address] [phone] [facility] [facility] Start: 03-26-2024 End: 03-26-2024 Patient encounter procedure 03/26/2024 2:30 PM EDT Office Visit [facility] [address] [phone] Mao Morrow, PhD [address] [place] [address] [facility] [facility] Comment on above: Arrived Start: 03-25-2024 End: 03-25-2024 Professional / ancillary services management 03/25/2024 8:45 AM EDT Ancillary Procedure [facility] [address] [place] [phone] [facility] Start: 03-19-2024 End: 03-19-2024 Patient encounter procedure 03/19/2024 2:00 PM EDT Office Visit [facility] [address] [facility] [place] [phone] Mao Morrow, PhD [address] [place] [id number] [facility] Start: 03-10-2024 Covid-19 Vaccine ( season) Covid-19 Vaccine () [facility] Start: 03-10-2024 Covid-19 Vaccine () Covid-19 Vaccine () [facility] Start: 03-10-2024 Influenza vaccination Influenza [...] procedure 03/07/2024 11:30 AM EDT Office Visit [facility] [place] [employer] [facility] [address] [facility] [place] [address] Diomedes Fitzgerald DO [address] [place] [address] 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CMS/HCC) [facility] [employer] [facility] Comment on above: 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CMS /HCC) Start: 02-09-2024 End: 02-09-2024 Patient encounter procedure 02/09/2024 9:45 AM EDT Office Visit [facility] [address] [place] [address] Latrell Jack MD [address] [place] [address] [facility] Start: 08-11-2023 End: 08-11-2024 Basic metabolic [...] calories (CMS/HCC) Expected: 08/11/2023 (Approximate), Expires: 08/11/2024 [facility] Work Phone: Comment on above: [...] 08/11/2023 9:45 AM EST [facility] Visit [facility] [address] [place] [address] Latrell Jack MD [address] [place] [phone] Arrived [facility] Comment on above: Arrived Start: 07-10-2023 Advance Directive Discussion Advance Directive Discussion [facility] Start: 03-10-2023 Influenza vaccination Influenza Vacc ine (#1) [facility] Start: 09-21-2016 Screening for osteoporosis Bone Density Screening [facility] Start: 09-21-2001 Shingrix Vaccine (1 of 2) Shingrix Vaccine (1 of 2) [facility] Start: 09-21-1996 Diabetes Screening Diabetes Screenin g [facility] Start: 09-21-1996 Lipid panel Lipid Screening [facility] Start: 09-21-1996 Screening for malign ant neoplasm of colon [facility] Start: 1991 Screening for malign ant neoplasm of breast [facility] Start: 09-21-1981 Zoledronic acid therapy Alpha- 1 Antitrypsin Deficiency Screening [facility] Start: 09-21-1970 Urine microalbumin profile DTaP,Tdap,Td Vaccine (1 - Tdap) [facility] [facility] Start: 09-21-1969 Annual PCP Team [employer] julio Disease Visit Annual PCP Team Chronic Disease Visit [facility] Start: 09-21-1969 Anxiety Screening Anxiety Screening [facility] Start: 09-21-1969 BP Controlled (<130/80) BP Controlle d (<130/80) [facility] Start: 09-21-1969 Depression Screening Depression Scre ening [facility] Start: 09-21-1969 Hepatitis C screening Hepatitis C Sc swathi [facility] Start: 09-21-1969 Spirometry Spirometry [facility] Start: 1950 Medicare Annual Well ness (AWV) Medicare Annual Wellness (AWV) [facility] Start: 1950 Screening for malign ant neoplasm of colon [facility] Start: 1950 Screening for malign ant neoplasm of lung Lung Cancer Screening Shared Decision Making [facility] End: 05-04-2025 ECG COMPLETE ECG COMPLETE ECG Routine Preoperative examination Paraesophageal hernia 1 Occurrences starting 05/06/2024 until 05/04/2025 [facility] Comment on above: 1 Occurrences starti ng 05/06/2024 until 05/04/2025 Laps rpr paraesphgl hrna incl fundplsty w/mesh LAPAROSCOPIC RPR PARAESOPHAGEAL HERNIA W/O FUNDOPLASTY W/ MESH Preoperative examination Paraesophageal hernia [facility] Patient Education Depression in adults - Discharge instructions [facility] Health DC Instructions Know your Meds [facility] Work Phone: Patient referral [facility] Work Phone: REFER FOR ADMIT INTERVIEW REFER FOR ADMIT INTERVIEW Procedures Routine Preoperative examination Paraesophageal hernia Ordered: 05/06/2024 [facility] Work Phone: Comment on above: Ordered: 05/06/2024 End: 08-23-2025 XR Chest PA and Lateral XR CHEST 2V FRONTAL/LAT Radiology Routine Pre-op evaluation Chronic obstructive pulmonary disease, unspecified COPD type (HCC) CHENEY (dyspnea on exertion) 1 Occurrences starting 07/23/2024 until 08/23/2025 [facility] Work Phone: Comment on above: 1 Occurrences starti ng 07/23/2024 until 08/23/2025 XR Chest PA and Lateral XR CHEST 2V FRONTAL/LAT Radiology Routine Pre-op evaluation Chronic obstructive pulmonary disease, unspecified COPD type (HCC) CHENEY (dyspnea on exertion) 07/23/2024 1:58 PM EST [facility] Immunizations Immunization Date Immunization Notes Care Provider Fa [facility] 05-15-2024 influenza virus vacc ine, unspecified formulation Latrell Jack MD Work Phone: [facility] 04-09-2023 influenza virus vacc ine, unspecified formulation Pa WEBB [facility] General [facility] [place] 05-03-2022 SARS-CoV-2 (COVID-19 ) [id number] Pa WEBB [facility] [place] 05-03-2022 influenza virus vacc ine, unspecified formulation Latrell Jack MD Work Phone: [facility] 11-25-2021 pneumococcal conjuga te vaccine, 13 valent Diomedes Amilcar DO Work Phone: [facility] 04-12-2021 influenza virus vacc ine, unspecified formulation Dafne Spears [facility] 04-12-2021 SARS-CoV-2 (COVID-19 ) mRNA BNT-162b2 vax Pa NILL [facility] Comment on above: Result Comment: 2023: [id number] 09-14-2020 SARS-CoV-2 (COVID-19 ) mRNA BNT-162b2 vax Pa OptarosL [facility] Comment on above: Result Comment: 2023: [id number] 08-27-2020 SARS-CoV-2 (COVID-19 ) mRNA BNT-162b2 QivivoL [facility] Comment on above: Result Comment: 2023: [id number] 06-16-2020 influenza virus vacc ine, unspecified formulation Leos Sarmini [facility] 05-16-2019 influenza virus vacc ine, unspecified formulation Leos Sarmini [facility] 05-16-2019 pneumococcal polysaccharide vaccine, 23 valent Leos Sarmini [facility] 05-12-2018 influenza virus vacc ine, unspecified formulation Leos Sarmini [facility] 01-31-2018 pneumococcal conjuga te vaccine, 13 valent Leos Sarmini [facility] Digestive [facility] 05-10-2016 influenza virus vacc ine, unspecified formulation Leos Sarmini [facility] 04-16-2015 influenza virus vacc ine, unspecified formulation Leos Sarmini [facility] Dig[facility]ive [facility] Payers Date Payer Category Payer Self-pay 2016 Private Health Insurance [id number] 2016 Medicare [id number] 2016 Unknown 1959 Medicare [id number] 1959 Private Health Insurance [id number] 1950 Unknown [id number] 2.16.84 0.1.139211.3.579.2.593 1950 Unknown [id number] 2.16.84 0.1.162782.3.579.2.593 1951 Unknown [id number] 2.16.84 0.1.756082.3.579.2.593 1951 Unknown [id number] 2.16.84 0.1.163105.3.579.2.593 1951 Unknown [id number] 2.16.84 0.1.890401.3.579.2.593 1951 Unknown [id number] 2.16.84 0.1.916257.3.579.2.593 1951 Unknown [id number] 2.16.84 0.1.211562.3.579.2.593 1951 Unknown [id number] 2.16.8 40.1.152175.3.579.2.727 1951 Unknown [id number] 2.16.8 40.1.516577.3.579.2.727 1951 Unknown [id number] 2.16.8 40.1.305585.3.579.2.727 1951 Unknown [id number] 2.16.8 40.1.829860.3.579.2.727 1951 Unknown [id number] 2.16.8 40.1.912228.3.579.2.727 1951 Unknown [id number] 2.16.8 40.1.865904.3.579.2.727 1951 Unknown [id number] 2.16.8 40.1.097153.3.579.2.727 1951 Unknown [id number] 2.16.8 40.1.745854.3.579.2.727 1951 Unknown [id number] 2.16. 840.1.432503.3.579.2.196 1951 Unknown [id number] 2.16. 840.1.830183.3.579.2.196 1951 Unknown [id number] 2.16. 840.1.868192.3.579.2.196 1951 Unknown [id number] 2.16. 840.1.356869.3.579.2.196 1951 Unknown [id number] 2.16. 840.1.728559.3.579.2.196 1951 Unknown [id number] 2.16. 840.1.808242.3.579.2.196 1951 Unknown [id number] 2.16.8 40.1.686014.3.579.2.1259 1951 Unknown [id number] 2.16.84 0.1.821606.3.579.2.1259 1951 Unknown [id number] 2.16.84 0.1.421336.3.579.2.1259 1951 Unknown [id number] 2.16.84 0.1.728939.3.579.2.1259 1951 Unknown [id number] 2.16.84 0.1.999616.3.579.2.1259 1951 Unknown [id number] 2.16.84 0.1.920343.3.579.2.125 1951 Unknown [id number] 2.16.84 0.1.476940.3.579.2.1259 1951 Unknown [id number] 2.16.84 0.1.730453.3.579.2.1259 1951 Unknown [id number] 2.16.84 0.1.050651.3.579.2.1259 1950 Unknown [id number] 2.16.84 0.1.859221.3.579.2.1259 Unknown [id number] 2.16.8 40.1.425793.3.579.2.531 Social History Date Type Detail Facility Start: 08-05-2023 End: 05-30-2024 Tobacco smoking status NHIS Ex-smoker [facility] Start: 07-10-1967 End: 01-08-2012 History of tobacco use Current smoker [facility] Start: 07-10-1967 End: 01-08-2012 History of tobacco use Cigarette Smoker [facility] Start: 08-05-2023 End: 02-02-2024 Cigarettes smoked current (pack per day) - Reported 1 [facility] Start: 08-05-2023 End: 02-02-2024 Tobacco use panel [facility] Start: 1950 Sex Assigned At Not on file [facility] Start: 08-11-2023 End: 05-30-2024 Tobacco use and exposure Smokeless tobacco non-user [facility] Tobacco smoking status Never [facility] [place] Start: 03-07-2024 End: 02-24-2025 Alcoholic beverage intake Current drinker of alcohol [...] per day [facility] consumption unknown [facility] Start: 04-23-2024 Gender identity Identifies as female gender (finding) [facility] Start: 07-23-2024 End: 08-07-2024 Alcoholic beverage intake Ex-drinker (finding) [facility] Start: 07-23-2024 Tobacco Comment Age 16 - 60, 1 /2 - 2 PPD, quit while at 1 PPD [facility] How often do you nee d to have someone help you when you read instructions, pamphlets, or other written material from your doctor or pharmacy [SILS] Sometimes [facility] Sexual Orientation [facility] Start: 09-04-2018 End: 12-16-2024 Sex Female (finding) [facility] Start: 1950 Sex Assigned At Female F [facility] Medical Equipment Procedure Code Equipment Code Equipment Original Text Equipment Identifier Dates [place] Thk1.65mm P tfe 4x.5in Cardiovascular Sterile - [id number] Start: 07-24-2024 Goals Date Patient Goal Desired Activity /State Functional Status Date Assessment Result Facility 12-16-2024 Functional status Patient at Baseline [facility] Work Phone: 03-20-2024 Functional Status N/A [facility] 02-26-2024 Functional Status N/A [facility] 10-13-2023 Functional Status N/A [facility] Mental Status Date Assessment Result Facility 12-16-2024 Cognitive function Cognitive Sta tus Patient at Baseline [facility] Work Phone: Clinical Notes 09-10-2021 to 02-24-2025 Latrell Jack MD - 02/24/2025 4:01 PM William Jack MD - 02/24/2025 4:01 PM William Jack MD - 02/24/2025 4:01 PM William Jack MD - 02/24/2025 4:00 PM EDT Note Date & Type Note Facility 02-24-2025 History of Presen t illness Narrative Associated Problem(s): Primary osteoarthritis of both knees Pain stable and use OTC PRN. Associated Problem(s): Primary insomnia Sleeping well with lunesta and continue. Associated Problem(s): Former smoker Quit in 2011 but prior 1 PPD for 40 plus years. Check LDCT chest. Associated Problem(s): Essential hypertension, benign BP elevated and increase losartan. Continue to monitor PRN. Associated Problem(s): COPD (chronic obstructive pulmonary disease) (HCC) SOB stable and continue albuterol nebulized PRN. Images from the original note were not [...] Bilateral screening mammogram documented in this encounter [facility] 12-16-2024 Discharge summary [facility] 12-15-2024 Progress note Note Date/Time December 15, 2024 10:52am [facility] [address] [place] [address] Psychiatry Progress Note Signed Patient: Shey Obrien MR#: [id number] : 1950 Acct:[id number] Age/Sex: 74 / F Adm Date: 5 Loc: Room: [address] [place] [address] Type : ADM IN Attending Dr: Erik [...] MD> 12/15/24 1052 <Electronically signed by DO TERESA Minh Randal> 12/15/24 0943 [facility] Work Phone: 1(818) 341-220306-08-2025 [place] [address] Psychiatry Progress Note Signed Patient: Shey Obrien MR#: [id number] : 1950 Acct:[id number] Age/Sex: 74 / F Adm Date: 5 Loc: Room: [address] [place] [address] Type : ADM IN Attending Dr: Erik [...] Erik Kim MD 5 0941 Signed By: 12/15/24 1052 12/15/24 0943 [facility]06-07-2025 Progress note Author Erik aguilar [facility] Note Date/Time December 14, 2024 2:23p m [facility] [address] [place] [address] Psychiatry Progress Note Signed Patient: Shey Obrien MR#: [id number] : 1950 Acct:[id number] Age/Sex: 74 / F Adm Date: 5 Loc: Room: [address] [place] [address] Type : ADM IN Attending Dr: Erik [...] discharge. Documented By: Erik Kim MD 5 [id number] Signed By: <Electronically signed by Erik Kim MD> 12/14/24 1427 [facility] Work Phone: 1(701) 280-580706-07-2025 [place] [address] Psychiatry Progress Note Signed Patient: Shey Obrien MR#: [id number] : 1950 Acct:[id number] Age/Sex: 74 / F Adm Date: 5 Loc: 1S Room: 4P2673-4 Type : ADM IN Attending Dr: Erik [...] Kim MD 5 1301 Signed By: 12/14/24 [facility]3 [facility]06-06-2025 History and physical note Author Erik aguilar [facility] Note Date/Time December 13, 2024 10:06 am [facility] [address] [place] [address] Psychiatry H&P Signed Patient: Shey Obrien MR#: [id number] : 1950 Acct:[id number] Age/Sex: 74 / F Adm Date: 5 Loc: Room: [address] [place] [address] Type: ADM IN Attending Dr: Erik Kim [...] boyfriend Employment: retired former [employer] worker in [employer] Relationships: close, supportive relationship with family [...] strong, equal bilaterally. CNXII: Tongue protrusion midline [facility] Medical History (Updated 12/13/24 @ 10:06 by [...] discharge. Documented By: Erik Kim MD 5 3399 Signed By: <Electronically signed by Erik Kim MD> 12/13/24 3471 [facility] Work Phone: 1(232) 720-184506-06-2025 [place] [address] Psychiatry H&P Signed Patient: Shey Obrien MR#: [id number] : 1950 Acct:[id number] Age/Sex: 74 / F Adm Date: 5 Loc: Room: [address] [place] [address] Type: ADM IN Attending Dr: Erik Kim [...] boyfriend Employment: retired former [employer] worker in [employer] [facility] [employer] Relationships: close, supportive relationship with family [...] strong, equal bilaterally. CNXII: Tongue protrusion midline [facility] Medical History (Updated 12/13/24 @ 10:06 by [...] MD 5 0841 Signed By: 12/13/24 1006 [facility]06-05-2025 Chief complaint+Reason for visit Narrative* Chief Complaint Admit Date Mental Evaluation. December 12, 2024 6:22p m Mental Evaluation. December 13, 2024 8:41a m Reason for Visit Admit Date Major depressive disorder, recurrent, mo derate December 12, 2024 6:22pm [facility] Work Phone: 1(192) 157-699006-05-2025 Chief complaint+Reason for visit Narrative * Chief Complaint Admit Date Mental Evaluation. December 12, 2024 6:22p m Mental Evaluation. December 13, 2024 8:41a m Reason for Visit Admit Date Major depressive disorder, recurrent, mo derate December 12, 2024 6:22pm Primary insomnia February 03, 2025 3:29 pm Obstructive sleep apnea syndrome February 032024 3:29pm [facility] Work Phone: 1(862) 546-207606-05-2025 Evaluation note* Diagnosis Onset Date Resolution Status Admit Date Major depressive disorder, recurrent, moderate acute December 12 6:22pm [facility] Work Phone: 1(576) 948-712906-05-2025 Evaluation note* Diagnosis Onset Date Resolution Status Admit Date Major depressive disorder, recurrent, moderate acute December 12 6:22pm Primary insomnia acute January 3:29pm Obstructive sleep apnea syndrome noneactive February 03, 2025 3:29pm [facility] Work Phone: 1(945) 287-279606-05-2025 Evaluation + Plan noteExtracted from: Title:ED Note Author:Elmer Kohli DO Date: Suicidal ideation (R45.851: Suicidal ideations) Orders: CBC w/ Auto Diff Communication Order Comprehensive Metabolic Panel Consult to Mental Health Drug Screen Urine ECG 12 Lead Adult eGFR Ethanol Level UA with Cult Rflx Urine Culture Diagnostic Tests Pending * Urine Culture 12/12/24 [facility] 05-28-2025 History of Present illness Narrative* Latrell Jack MD - 12/04/2024 2:25 PM EDTAssociated Problem(s): Degenerative lumbar spinal stenosis Recent flare and increased pain. Treat with prednisone. Use robaxin for spasms and norco PRN. Follow up with pain management next week as scheduled. * Latrell Jack MD - 12/04/2024 2:24 PM EDTAssociated Problem(s): COPD (chronic obstructive pulmonary disease) ([facility]) SOB stable and continue albuterol nebulized PRN. [...] tablet predniSONE (Deltasone) 50 MG tablet HYDROcodone-acetaminophen ([place]) 5-325 MG tablet documented in this encounterCapital Region Medical [id number] History of Present illness Narrative* Latrell Jack MD - 08/27/2024 11:05 AM ESTAssociated Problem(s): 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[facility]) Follow with neurology. * Latrell Jack MD [...] 11:03 AM ESTAssociated Problem(s): Essential hypertension, benign ([facility]/HCC) BP controlled and monitor PRN. * Latrell Jack MD - 08/27/2024 11:03 AM ESTAssociated Problem(s): COPD (chronic obstructive pulmonary disease) (CMS/HCC) Symptoms stable and continue spiriva. Use albuterol PRN. * Latrell Jack MD - 08/27/2024 11:03 AM ESTAssociated Problem(s): Class 2 severe obesity due to excess calories with serious comorbidity and body mass index (BMI) of 36.0 to 36.9 in adult ([facility]) Weight loss indicated. * Latrell Jack MD [...] Items Addressed This Visit Essential hypertension, benign ([facility]) BP controlled and monitor PRN. Relevant Orders Basic metabolic panel COPD (chronic obstructive pulmonary disease) ([facility]) Symptoms stable and continue spiriva. Use albuterol PRN. Dyslipidemia ([facility]) Relevant Orders Lipid panel Encounter for long-term (current) use of medications Relevant Orders CBC and differential Hepatic function panel Prediabetes Relevant Orders Hemoglobin A1c Class 2 severe obesity due to excess calories with serious comorbidity and body mass index (BMI) of36.0 to 36.9 in adult ([facility]) Weight loss indicated. Relevant Orders TSH [...] therapy. documented in this encounterCapital Region Medical [id number] NoteHNO ID: [id number] Author: KATARZYNA SNYDER APRN.CREATIVE ARTS THERAPIST Service: ? Author Type: Nurse Practitioner Type: Progress Notes Filed: 08/07/2024 15:37 Note Text: [facility] Clinic Date: [...] completed prior to appointment Katarzyna Snyder, MSN, CREATIVE ARTS THERAPIST [facility]29[facility] History of Present illness Narrative* Katarzyna Snyder, LISSETTE.CREATIVE ARTS THERAPIST - 08/07/2024 2:14 PM EST [facility] Clinic Date: [...] completed prior to appointment Katarzyna Snyder, MSN, CREATIVE ARTS THERAPIST August 07, 2024 * Olga Lidia Blake [...] Temperature: No Drains: No [facility] NoteHNO ID: [id number] Author: OLGA LIDIA BLAKE MA Service: ? Author Type: Legal Office Administrator Type: Progress Notes Filed: 08/07/2024 15:37 Note Text: What is the reason for your visit today? Post op Who is your referring physician? Dr. Snyder Are you having poor oral intake? NO Have you had unintentional weight loss of 15 lbs/7 Kg in the last 3-6 months? NO Bowels: constipated, diarrhea, or regular Wound: clean AND dry Temperature: No Drains: [facility]01-22-2025 Telephone encounter Note* Telephone Encounter - Latrell Jack MD - 07/31/2024 2:25 PM EST Sent to [facility]. [facility] [id number] Miscellaneous Notes* Telephone Encounter - Latrell Jack MD - 07/31/2024 2:25 PM EST Sent to [facility]. * Telephone Encounter - GEO DICK - 07/31/2024 2:20 PM EST Insurance won't cover the extended release ambien. * Telephone Encounter - Sandra Matias - 07/31/2024 1:13 PM EST Patient called and stated that her zolpidem refill was denied. She would like you to call her or the pharmacy. an documented in this encounterCapital Region Medical [id number] Telephone encounter Note* Telephone Encounter - GEO DICK - 07/31/2024 2:20 PM EST Insurance won't cover the extended release ambien. [facility] [id number] Telephone encounter Note* Telephone Encounter - Sandra Matias - 07/31/2024 1:13 PM EST Patient called and stated that her zolpidem refill was denied. She would like you to call her or the pharmacy. an [facility] [id number] NoteHNO ID: [id number] Author: DERREK MARSHALL RN Service: Care Management Author Type: Registered Nurse Type: Gomez Mgt Progress Note Filed: 07/26/2024 09:23 Note [...] Obrien DATE: July 26, 2024 TIME: 9:22 [facility]01-16-2025 NoteHNO ID: [id number] Author: DERREK MARSHALL RN Service: Care Management Author Type: Registered Nurse Type: Gomez Garcia Initial Assessment Filed: 07/25/2024 14:30 Note Text: CARE MANAGEMENT: ASSESSMENT AND DISCHARGE PLAN SERVICE DATE: July 25, 2024 SERVICE TIME: 2:29 PM PCP: Latrell Jack MD Primary Contact: Extended Emergency Contact Information Primary Emergency Contact: Alexandria Cramer Address: [address] [place] [address] Relation: Relative Admission Status: Inpatient Insurance Provider: MEDICARE A AND B Discharge Planning requested by: Per Department Practice Potential Transition Plans To Be Determined Advance Directives Current Advance Directive: None Brush Maker Attempted to Assist with AD Completion: Yes Action: Education Provided [place] of Choice Explained: [place] of Choice Given: No Reason Not Given: [...] Obrien DATE: July 25, 2024 TIME: 2:29 [facility]01-16-2025 NoteHNO ID: [id number] Author: DERREK MARSHALL RN Service: Care Management Author Type: Registered Nurse Type: Care Mgt Progress Note Filed: 07/25/2024 14:28 Note Text: CARE MANAGEMENT: ASSESSMENT AND DISCHARGE PLAN SERVICE DATE: July 25, 2024 SERVICE TIME: 2:28 PM PCP: Latrell Jack MD Primary Contact: Extended Emergency Contact Information Primary Emergency Contact: Alexandria Cramer Address: [address] [place] [address] Relation: Relative Admission Status: Inpatient Insurance Provider: MEDICARE A AND B Discharge Planning requested by: Per Department Practice Potential Transition Plans To Be Determined Advance Directives Current Advance Directive: None Brush Maker Attempted to Assist with AD Completion: Yes Action: Education Provided [place] of Choice Explained: [place] of Choice Given: No Reason Not Given: [...] Obrien DATE: July 25, 2024 TIME: 2:27 [facility]01-16-2025 NoteHNO ID: [id number] Author: YAN MOSER, ? Service: General Surgery [...] and Airways Line Duration Peripheral 07/24/24 0900 [facility] Right Hand 20 Gauge <1 day Peripheral 07/24/24 1111 Left Hand 18 Gauge <1 day SURGERY/PROCEDURE: Procedure(s) and Anesthesia Type: * LAPAROSCOPIC RPR PARAESOPHAGEAL HERNIA W/O FUNDOPLASTY W/ MESH - General [facility]01-15-2025 NoteHNO ID: [id number] Author: NENA SEPULVEDA MD Service: General Surgery [...] edema Signature: Nena Sepulveda MD SERVICE DATE: 01/15/25 SERVICE TIME: 7:09 [facility]01-15-2025 NoteHNO ID: [id number] Author: TRIP GRAY RN Service: Nursing Author Type: Registered Nurse Type: Progress Notes Filed: 07/24/2024 18:55 Note Text: [id number] Paged [id number] to notify that patient came up from PACU with a rdz in but no active rdz order. Requesting order to be placed.[facility] 07-24-2024 NoteHNO ID: [id number] Author: TRIP GRAY RN Service: Nursing Author Type: Registered Nurse Type: Progress Notes Filed: 07/24/2024 18:25 Note Text: Admission/Transfer Note PATIENT NAME: Shey Obrien Patient Location: [place] [address] Room: [place] [address] Patient admitted from PACU via bed in stable condition. Actions taken: Patient oriented to room, call light function, prescribed activities, Patient rights, and Quiet at night. Patient belongings with patient. This note was completed by: Trip [facility]Ohio[facility] 07-24-2024 NoteHNO ID: [id number] Author: BETTY ALLEN APRN.PHYSICIAN PRACTICE CONSULTANT Service: ? Author Type: Nurse Head Bellhop Captain Type: Anesthesia Procedure Notes Filed: 07/24/2024 11:23 Note Text: ANESTHESIOLOGY PROCEDURE NOTE Airway General Information Procedure Start Time/Medication Administration: 07/24/2024 11:09 AM Procedure End Time: 07/24/2024 11:09 AM Patient location during procedure: OR Timeout Performed Pre-procedure: timeout performed Consent Obtained: Yes Patient identity confirmed: arm band, care paper steamer and patient Staffing PHYSICIAN PRACTICE CONSULTANT: Betty Allen APRN.PHYSICIAN PRACTICE CONSULTANT Performed by: PHYSICIAN PRACTICE CONSULTANT Indications and Patient Condition Indications for airway [...] July 24, 2024 TIME: 11:23 AM CSN: [id number] Hospital01-[facility]-2025 NoteHNO ID: [id number] Author: BETTY ALLEN APRN.PHYSICIAN PRACTICE CONSULTANT Service: ? Author Type: Nurse Head Bellhop Captain Type: Anesthesia Procedure Notes Filed: 07/24/2024 11:23 Note Text: ANESTHESIOLOGY PROCEDURE NOTE PIV General Information Procedure Start Time/Medication Administration: 07/24/2024 11:11 AM Procedure End Time: 07/24/2024 11:11 AM Patient Location: OR Staffing PHYSICIAN PRACTICE CONSULTANT: Betty Allen APRN.PHYSICIAN PRACTICE CONSULTANT Performed by: PHYSICIAN PRACTICE CONSULTANT Preparation Sterility Preparation: hand hygiene performed prior to procedure, surgical cap used, mask used, skin prep agent completely dried prior to procedure Site Prep: alcohol Procedure Details Indication: need for IV access Needle Size/Type: 18 gauge angiocath Orientation: Left Location: Hand Imaging Guidance Used: No SIGNATURE: Betty Allen APRN.CRNA PATIENT NAME: Shey Obrien DATE: July 24, 2024 TIME: 11:22 AM CSN: [id number] Hospital01-15-2025 NoteHNO ID: [id number] Author: ABDELRAHMAN HE MD Service: General Surgery Author Type: Resident Type: Plan of Care Filed: 07/24/2024 10:30 Note Text: Patient consented for study? Yes STUDY TITLE: MVP Trial: Mesh Vs Pledgets for repair of paraesophageal hernia repair: a randomized, blinded, parallel group trial IRB NO.: #[id number] CUSTOMER ASSISTANT: Willard Ramirez MD COORDINATOR/Research Nurse/Foxing Cutting Machine Operator: Abdelrahman He MD Phone/email: [phone], [email or web address] Consenting was performed in person [...] CRITERIA Yes No 1. The patient lacks Albanian language fluency or cannot understand the consent form/study procedures [] [x] 2. The patient is [] [x] 3. The patient has a BMI >45 [] [x] 4. The patient has undergone previous hiatal hernia repair [] [x] 5. The patient will undergo paraesophageal hernia repair with a concurrent bariatric procedure to reduce stomach volume [] [x][facility] 07-23-2024 History of Present illness Narrative* Humera [...] PATIENT PRESENTS WITH AN IMPLANTABLE OR ATTACHED COATER OPERATOR INSULATION BOARD: No RADIOLOGY DEPARTMENT: General X-ray: Exam(s) Completed: Chest X-Ray PERIPHERAL IV DATA: Not applicable SIGNED BY: RT Liu(R) July 23, 2024 1:59 PM documented in this encounterPremier [facility]01-14-2025 NoteHNO ID: [id number] Author: HUMERA POSEY RT(R) Service: Radiology Author [...] PATIENT PRESENTS WITH AN IMPLANTABLE OR ATTACHED COATER OPERATOR INSULATION BOARD: No RADIOLOGY DEPARTMENT: General X-ray: Exam(s) Completed: Chest X-Ray PERIPHERAL IV DATA: Not applicable SIGNED BY: RT Liu(Ortega) July 23, 2024 1:59 PMCLutheran Hospital01-14-2025 Instructions* Patient Instructions* Jamil Delacruz PA-C - 07/23/2024 1:27 PM EST Images from the original note were not included. [facility] PATIENT PREOPERATIVE INSTRUCTIONS Dr. Boyd has scheduled you for your procedure at this surgery center: [facility] [place] Scheduling Office: [phone] --[address] [place] [address]. Please read below carefully for your personalized [...] office. If you are currently using a hxge-nqs-sxum injectable or oral medication for diabetes or [...] Procedures: - YOU MUST HAVE A RESPONSIBLE CRYPTOGRAPHIC MACHINE OPERATOR TAKE YOU HOME. A LATEX RIBBON MACHINE OPERATOR OR SOLUTION DESIGN AND ANALYSIS MANAGER CANNOT BE MADE A RESPONSIBLE CRYPTOGRAPHIC MACHINE OPERATOR. - We recommend that a responsible person [...] call the Monday before. Your surgeon s packer insulation will tell you what time to call the office. - If you have not reached the departmental packer insulation by 5 P.M., call [phone] after 5 P.M. the day before your surgery. Please be aware that emergency situations arise, which may delay or change your surgical time. If this happens, we will notify you as soon as possible and regret any inconvenience. If you already have an Advance Directive, please fax a copy to [phone] or email to for it to be [...] day. Jamil Delacruz PA-C documented in this encounterPremier Health [facility]01-14-2025 History and physical note * Jamil Delacruz [...] pain, CHF, congenital heart defect, DVT/PE, recent AK and murmur/valvular heart disease. GI: See HPI. [...] 404 QTC Calculation (Bazett) 423 Calculated P [place] 32 Calculated R [place] 14 Calculated T [place] 54 Impression NORMAL SINUS RHYTHM NORMAL ECG No results found for this or any previous visit (from the past 19408 hour(s)). Instructions Given to Patient: Instructions located in the after visit summary. Patient given verbal and written preop instructions and voices comprehension and compliance. SIGNATURE: Jamil Delacruz PA-C PATIENT NAME: Shey Obrien DATE: July 23, 2024 TIME: 1:07 PM PAGER/CONTACT #: [facility]01-14-2025 History and physical note* Jamil Delacruz PA-C [...] note last dose of baby aspirin was /13 PM. CONSULTS: Patient does not require consults [...] pain, CHF, congenital heart defect, DVT/PE, recent AK and murmur/valvular heart disease. GI: See HPI. [...] 404 QTC Calculation (Bazett) 423 Calculated P [place] 32 Calculated R [place] 14 Calculated T [place] 54 Impression NORMAL SINUS RHYTHM NORMAL ECG No results found for this or any previous visit (from the past 42236 hour(s)). Instructions Given to Patient: Instructions located in the after visit summary. Patient given verbal and written preop instructions and voices comprehension and compliance. SIGNATURE: Jamil Delacruz PA-C PATIENT NAME: Shey Obrien DATE: July 23, 2024 TIME: 1:07 PM PAGER/CONTACT #: documented in this encounterPremier Health [facility] Center12-23-2024 Telephone encounter Note * Telephone Encounter - Trip Lieberman MA - 07/01/2024 1:22 PM EST Sending this to Dr Jack [facility] CenterGjfuzfxips94-39-8913 Miscellaneous Notes* Telephone Encounter - Trip Lieberman [...] you documented in this encounterCapital Region Medical CenterDbuctnkzbf91-04-2277 Telephone encounter Note* Telephone Encounter - Sandra Arcos NP - 06/29/2024 11:46 AM EST Did we call Dr. Jack's office and let him know that we took over the Aricept. If not can we please. I do not see it documented. Thank you [facility] CenterPjdhfxibvu49-33-4316 Telephone encounter Note* Telephone Encounter - Cassy Donnelly - 06/13/2024 11:39 AM EST Patient would like her Losartan 50 mg and Pantoprazole 40 mg changed to [facility] insteadof [facility], JN [facility] CenterKmljcantfe28-65-3729 Miscellaneous Notes* Telephone Encounter - Cassy Donnelly - 06/13/2024 11:39 AM EST Patient would like her Losartan 50 mg and Pantoprazole 40 mg changed to [facility]of [facility], [place] documented in this [facility]11-06-2024 History of Present illness Narrative* Latrell Jack [...] (BMI) of 38.0 to 38.9 in adult ([facility]) Weight loss indicated. * Latrell Jack MD [...] indicated. documented in this encounterCapital Region Medical CenterAqtitaryfr20-25-6429 NoteHNO ID: [id number] Author: XAVIER BOYD MD Service: ? Author [...] blinded, parallel group trial IRB NO.: #[id number] CUSTOMER ASSISTANT: Pa Prakash MD COORDINATOR/Research Nurse/Foxing Cutting Machine Operator: Abdelrahman He MD Phone/email: [phone], [email or web address] Consenting was performed in person [...] CRITERIA Yes No 1. The patient lacks Albanian language fluency or cannot understand the consent form/study procedures [] [x] 2. The patient is [] [x] 3. The patient has a BMI >45 [] [x] 4. The patient has undergone previous hiatal hernia repair [] [x] 5. The patient will undergo paraesophageal hernia repair with a concurrent bariatric procedure to reduce stomach volume [] [x][facility] 04-29-2024 History of Present illness Narrative* Xavier [...] blinded, parallel group trial IRB NO.: #[id number] CUSTOMER ASSISTANT: Pa Prakash MD COORDINATOR/Research Nurse/Foxing Cutting Machine Operator: Abdelrahman He MD Phone/email: [phone], [email or web address] Consenting was performed in person [...] CRITERIA Yes No 1. The patient lacks Albanian language fluency or cannot understand the consent [...] Yan Moser - 04/29/2024 11:16 AM EDT [facility] - [...] Moser MD General Surgery documented in this encounterPremier Health [facility]10-21-2024 NoteHNO ID: [id number] Author: YAN MOSER, ? Service: ? Author Type: Physician Type: Progress Notes Filed: 04/29/2024 12:10 Note Text: [facility] - [...] - Consents obtained Yan Moser MD General SurgeryOhiohealth [facility]10-21-2024 Nurse Note* Diomedes Fiore MA - 04/29/2024 10:50 AM EDT What is the reason for your visit today? Consult Who is your referring physician? Dafne Spears Are you having poor oral intake? YES Have you had unintentional weight loss of 15 lbs/7 Kg in the last 3-6 months? NO Bowels: soft, more frequent Wound: none Temperature: No Drains: No [facility]10-21-2024 Nurse Note* Diomedes Fiore MA - 04/29/2024 10:50 AM EDT What is the reason for your visit today? Consult Who is your referring physician? Dafne Spears Are you having poor oral intake? YES Have you had unintentional weight loss of 15 lbs/7 Kg in the last 3-6 months? NO Bowels: soft, more frequent Wound: none Temperature: No Drains: No documented in this encounterPremier Health [facility] Center10-14-2024 Telephone encounter Note * Telephone Encounter - Ashlie Calderon - 04/22/2024 5:32 PM EDT Spoke with PT she state no prior surgeries [facility]10-14-2024 Miscellaneous Notes* Telephone Encounter - Ashlie Calderon - 04/22/2024 5:32 PM EDT Spoke with PT she state no prior surgeries documented in this encounterPremier Health [facility]10-03-2024 History of Present illness Narrative* Mao Morrow, [...] No history of alcohol/substance abuse. Reformed smoker. [place] language Albanian. Completed high school education as well as some college. Described self asa C student. 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 Motor/Speed of Processing: Left-handed. 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 Recognition discriminability 69th [...] of this individual. Please contact me with [employer] at [phone]. documented in this encounterCapital Region Medical CenterJimdugtmeq53-88-5968 NoteEndoscopic Procedure Report - Other Patient: SHEY OBRIEN Age: 73 years Sex: Female : 1950 Associated Diagnoses: None Author: Yovanny OLIVO, Dafne Torres Preoperative Information Indication for [...] 1 tab, Oral, Daily Flonase 0.05 mg/inh Melvin: 2 spray(s), Nasal, Daily, Refill(s) 0, Dry [...] a day (at bedtime) Flonase 0.05 mg/inh Melvin 2 spray(s), Nasal, Daily losartan 25 mg [...] All Problems HTN (hypertension) / SNOMED CT 6065864730 / Confirmed Chronic obstructive pulmonary disease / SNOMED CT 81686023 / Confirmed Insomnia / SNOMED CT 555341267 / Confirmed Seasonal allergic rhinitis / SNOMED CT 578024737 / Confirmed Dyslipidemia / SNOMED CT 8172528294 / Confirmed BMI 39.0-39.9,adult / SNOMED CT 674461494 / Confirmed Morbid obesity / SNOMED CT 332288722 / Confirmed GERD (gastroesophageal reflux disease) / SNOMED CT 052675460 / Confirmed Hiatal hernia / SNOMED CT 963089898 / Confirmed EDWIN (obstructive sleep apnea) / SNOMED CT 055750293 / Confirmed Lower extremity edema / SNOMED CT 766478999 / Confirmed TIA (transient ischemic attack) / SNOMED CT 435622322 / Confirmed Screening for malignant neoplasm of colon / SNOMED CT 011667267 / Confirmed Dysphagia / SNOMED CT 12736924 / Confirmed Histories Past Medical History: Resolved Hernia (621521435): Resolved. Sleep apnea (651682217): Resolved. Family History: Father Alcoholism Primary malignant neoplasm of lung COPD Mother Cardiac arrest Alzheimer's disease Procedure history: Colonoscopy (303384896) on 10/13/2023 at 73 Years. ORIF - Open reduction of fracture of ankle with internal fixation (515063733993242). Meniscal repair (020931019). Tonsillectomy (104054260). Hand tendon repaired (580324285). Social History Social & Psychosocial Habits Alcohol [...] NTND Impression and Plan Impression: DYSPHAGIA Plan: -[facility] CenterComment on above:Result Comment: wrong folder Electronically Signed By: Yovanny OLIVO, Dafne Torres\.br\Date and Time Signed: 03/20/24 12:47 [id number] History of Present illness Narrative* Mao Morrow, [...] No history of alcohol/substance abuse. Reformed smoker. [place] language Albanian. Completed high school education as well as some college. Describes itself as a C student. 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 [...] of this individual. Please contact me with [employer] at [phone]. documented in this encounterCapital Region Medical CenterPdulcxvibj98-58-5973 Hospital Discharge instructions Patient Education 03/20/2024 13:07:59 [...] Follow these instructions at home: Medicines Take bkbe-jie-nxeljos and prescription medicines only as told by [...] or drinks. ?Garlic or onions. ?Spicy foods. ?[place] fruits. ?Tomato-based foods. ?Fatty or fried foods. [...] provider. Document Revised: 01/09/2023 Document Reviewed: 01/09/2023 [employer] Patient Education 2023 [employer]. 03/20/2024 13:07:56 Gastritis, Adult, Skgl-[place]ox[place] Gastritis, Adult Gastritis is irritation and swelling [...] Follow these instructions at home: Medicines Take oybz-qaz-mbafnmo and prescription medicines only as told by [...] away. Call your local emergency services ([facility] Do not wait to see if the [...] provider. Document Revised: 10/30/2021 Document Reviewed: 10/30/2021 [employer] Patient Education 2023 [employer]. 03/20/2024 13:07:48 Hiatal Hernia Hiatal Hernia A [...] reduce GERD symptoms. Medicines. These may include: ?Smvn-mpj-gshpizz antacids. ?Medicines that make your stomach empty [...] may include: ?Fatty foods, like fried foods. ?[place] fruits, like oranges or lemon. ?Other foods [...] Do not drink alcohol. General instructions Take xwxx-kxs-yhjsppk and prescription medicines only as told by [...] provider. Document Revised: 08/23/2022 Document Reviewed: 08/23/2022 [employer] Patient Education 2023 [employer] 03/20/2024 13:07:46 Endoscopy, Care After Procedure [facility] Endoscopy Care After Procedure Please read the instructions outlined below and refer to this sheet in the next few weeks. These discharge instructions provide you with general information on caring for yourself [facility] Your doctor may also give you specific [...] Document Re-Released: 12/18/2006 [employer]Care Patient Information 2009 [employer]. Follow Up Care 02/26/2024 09:52:05 With:Yovanny OLIVO, SENAIT Sifuentes, [facility] Address: When: Unknown Comments:Call for any problems. Office will call to schedule follow up appointment [facility] 09-11-2024 Evaluation + Plan note Future Scheduled Tests Radiology* XR Esophagus 03/20/24 [facility] 09-11-2024 NotePatient Education - Text Endoscopy Care After Procedure Please read the instructions outlined below and refer to this sheet in the next few weeks. These discharge instructions provide you with general information on caring for [facility] Your doctor may also give you [...] 02/07/2005 Document Re-Released: 12/18/2006 ExitCare? Patient Information ?2010 [employer]. Gastroenterology Hiatal Hernia A hiatal hernia occurs [...] symptoms. ? Medicines. These may include: ? Nknp-fmp-iakmorl antacids. ? Medicines that make your stomach [...] ? Avoid putting pressu (more content not included)...[facility] 03-20-2024 NoteEndoscopic Procedure Report - Other Patient: [...] otherwise normal examined duodenum Images Procedure images: Rec1_hd_video_2023__[id number].jpg Rec1_hd_video_2023____35_581.jpg Rec1_hd_video____25_745.jpg Rec1_hd_video____15_326.jpg Rec1_hd_video___14_566.jpg Rec1_hd_video____01_833.jpg . Post-Procedure Complications: none. Estimated [...] if surgery referral is indicated, will be orderedSelect Medical Ohiohealth Rehabilitation Hospital - DublinComment on above:Result Comment: Electronically Signed By: Yovanny OLIVO, Dafne Torres\.br\Date and Time Signed: 03/20/24 12:58 EDTOther Comment: Missing Attachment - attachment storage system not supported [id number] Can be viewed in source systemMissing Attachment - attachment storage system not supported [id number] Can be viewed [facility] systemMissing Attachment - attachment storage system not supported 4815595 Can be viewed in source systemMissing Attachment - attachment storage system not supported 2736417 Can be viewed in source systemMissing Attachment - attachment storage system not supported 2928560 Can be viewed in source systemMissing Attachment - attachment storage system not supported 4723879 Can be viewed in source [id number] NoteEndoscopic Procedure Report - Other Patient: SHEY [...] 1 tab, Oral, Daily Flonase 0.05 mg/inh Melvin: 2 spray(s), Nasal, Daily, Refill(s) 0, Dry [...] a day (at bedtime) Flonase 0.05 mg/inh Melvin 2 spray(s), Nasal, Daily losartan 25 mg [...] All Problems HTN (hypertension) / SNOMED CT 6171685372 / Confirmed Chronic obstructive pulmonary disease / SNOMED CT 46029154 / Confirmed Insomnia / SNOMED CT 011462024 / Confirmed Seasonal allergic rhinitis / SNOMED CT 641411454 / Confirmed Dyslipidemia / SNOMED CT 3150761426 / Confirmed BMI 39.0-39.9,adult / SNOMED CT 837910764 / Confirmed Morbid obesity / SNOMED CT 640188172 / Confirmed GERD (gastroesophageal reflux disease) / SNOMED CT 472486585 / Confirmed Hiatal hernia / SNOMED CT 375984407 / Confirmed EDWIN (obstructive sleep apnea) / SNOMED CT 213937513 / Confirmed Lower extremity edema / SNOMED CT 251858983 / Confirmed TIA (transient ischemic attack) / SNOMED CT 909611342 / Confirmed Screening for malignant neoplasm of colon / SNOMED CT 112077712 / Confirmed Dysphagia / SNOMED CT 78330145 / Confirmed Histories Past Medical History: Resolved Hernia (105080019): Resolved. Sleep apnea (502259610): Resolved. Family History: Father Alcoholism Primary malignant neoplasm of lung COPD Mother Cardiac arrest Alzheimer's disease Procedure history: Colonoscopy (367756031) on 10/13/2023 at 73 Years. ORIF - Open reduction of fracture of ankle with internal fixation (203037007710485). Meniscal repair (914812004). Tonsillectomy (108678752). Hand tendon repaired (897495497). Social History Social & Psychosocial Habits Alcohol [...] (MAR 20 11:14) DBP 72 mmHg (MAR 20 11:14) Weight 100 kg (MAR 20 11:14) General: in Nad Abdomen: Soft, NTND Impression and Plan Impression: DYSPHAGIA Plan: -[facility] CenterComment on above:Result Comment: Electronically Signed By: Yovanny OLIVO, Dafne Torres\.br\Date and Time Signed: 03/20/24 12:47 [id number] History of Present illness Narrative* Diomedes Fitzgerald, - 03/07/2024 11:30 AM EDT Images from the original note were not included. Chief Complaint Patient presents with Memory Loss Dysphagia Subjective Shey Obrien, 73 y.o., female, was referred back to [...] was counseled on the risks of stroke, AK, and sudden with EDWIN, along with the [...] clinic: documented in this encounterCapital Region Medical CenterOhbsvtweqz16-35-5088 Note [id number] [facility] 10-[facility]-20[facility] Evaluation + Plan noteExtracted from: Title:ANES Post-operative Note - General Author: Shaji Bethea Jr., DO Date:10/13/23 Plan Transfer/Discharge: Transfer/Discharge Discharge when meets criteria ( From PACU to Ambulatory Surgery Unit, and To home ). Extracted from: Title:ANES Pre-operative Note - Endo Author:Shaji Mendoza Jr., DO Date:10/13/23 Plan [place] Society of Anesthesiologists (ASA) physical status classification: Class III. Anesthetic Preoperative Plan: Anesthesia General, and -TIVA. [facility]04-05-2024 Hospital Discharge instructions Patient Education 10/13/2023 09:31:42 Colonoscopy, Care After Surgery Salam (CUSTOM) Colonoscopy Care After Surgery Please read the instructions outlined below and refer to this sheet in the next few weeks. These discharge instructions provide you with general information on caring for yourself [facility] Your doctor may also give you specific [...] Up Care 09/12/2023 10:17:58 With:Pa WEBB Address: [address] [place] [address] [address] [phone] Business (1) When: only if needed [facility]04-05-2024 NotePatient: SHEY OBRIEN Age: 73 years Sex: Female : 1950 Associated Diagnoses: None Author: Pa WEBB MD Subjective no changes to H & PFSalem City HospitalComment on above:Result Comment: Electronically Signed By: Pa WEBB MD\.br\Date and Time Signed: 10/13/23 09:45 [id number] NoteChief Complaint consultation for colonoscopy [facility] Staff 72 year old female [...] a day (at bedtime) Flonase 0.05 mg/inh Melvin, 2 spray(s), Nasal, Daily losartan 25 mg [...] Alzheimer's di (more content not included)...[facility] DublinComment on above:Result Comment: Electronically Signed By: TRACEY OLIVO, Pa Lynn\Date and Time Signed: 09/12/23 10:16 [id number] History of Present illness Narrative* Latrell Jack [...] Surgery documented in this encounterCapital Region Medical CenterZxskjlgwqt41-46-7932 NoteEXAMINATION: XR CHEST 1 V HISTORY: SHORTNESS [...] Electronically authenticated by: MEHNAZ SANTIAGO Date: 2021-11-02 16:39[facility]03-04-2022 NotePROCEDURE: XR ANKLE RT MIN 3 [...] Electronically authenticated by: WILLARD ANAND Date: 2021-09-10 09:02[facility]03-04-2022 NotePROCEDURE: XR ANKLE RT 2V COMPARISON: 03/02/2020. HISTORY: Pain FINDINGS: 35 seconds of fluoroscopy. 5 fluoroscopic images Interval removal of internal fixation hardware. Components of 2 fractured screws across the tibiofibular syndesmosis remain on image #5 IMPRESSION: Removal of lateral fibular plate and screws Electronically authenticated by: WILLARD ANAND Date: 2021-09-10 08:30[facility] HospitalDis[facility] summary Author Tra Hobson [facility] Note Date/Time December 16, 2024 3:46p m [facility] [address] [place] [address] Discharge Summary Signed Patient: Shey Obrien MR#: [id number] : 1950 Acct:[id number] Age/Sex: 74 / F Adm Date: 5 Loc: Room: [address] [place] [address]: Erik Kim MD Copies to: [...] boyfriend Employment: retired 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 Patient was treated with Remeron. She tolerated [...] Instructions: Important Contact Information You can call [facility] at [phone] any time day or night if you have emergent questions or question regarding discharge instructions. If at any time you are feeling an increase inyour psychiatric symptoms, call your physician or behavioral healthcare provider. If any time you have thoughts of harming yourself or others contact one of the following: Call 8-8 (available 30/01) Crisis Text Line (available 30/01) text 4HOPE to [phone] [facility] Hope Line (available 8 a.m. Midnight) call [phone] ([phone]) Instructions: Depression in adults - Discharge instructions, [facility] DC Instructions, Know your Meds [...] 1 cap INHALATION DAILY Follow Up: LEIGH Gilmore [Outside] - 12/17/24 (manager private will call you tomorrow, if you miss [...] signed by Tra Hobson MD> 12/16/24 1546 [facility] Work Phone: Evaluation + Plan note Future Appointments Appointment Date:03/20/2024 12:15:00 PM Scheduled Provider: Location:[facility] Appointment Type:Surgery FT [facility] Evaluation note* Diagnosis [...] 40.0-44.9, adult (Z68.41) documented in this encounter [facility] HealthcareEvaluation note* Diagnosis Memory loss- Primary Word finding difficulty EDWIN on CPAP Other insomnia Other chronic pain Generalized anxiety disorder (CMS/HCC) Generalized anxiety disorder Severe episode of recurrent major depressive disorder, 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) documented in this encounter [facility] HealthcareEvaluation note* Diagnosis Paraesophageal hernia- Primary Diaphragmatic hernia without mention of obstruction or gangrene [facility] Diagnosis Preoperative examination- Primary Preoperative examination, unspecified Paraesophageal hernia Diaphragmatic hernia without mention of obstruction or gangrene Abnormal results of liver function studies Nonspecific abnormal results of liver function study Abnormal coagulation profile [facility] Diagnosis Essential hypertension, benign [...] insomnia Other chronic pain Generalized anxiety disorder ([facility]/HCC) Generalized anxiety disorder documented in this encounter [...] obstructive pulmonary disease, unspecified COPD type ([facility]) CHENEY (dyspnea on exertion) Other dyspnea [...] smoker -CXR pending [facility] Diagnosis Pre-op evaluation- Primary Preoperative examination, [...] and respiratory abnormality [facility] Diagnosis Essential hypertension, benign [...] or maintaining sleep documented in this encounter [facility] HealthcareEvaluation note* Diagnosis Essential hypertension, benign (CMS/HCC)- Primary Essential hypertension, benign Chronic obstructive pulmonary disease, unspecified COPD type (CMS/HCC) Primary insomnia Persistent disorder of initiating or maintaining sleep Primary osteoarthritis of both knees Hiatal hernia with gastroesophageal reflux disease without esophagitis Seasonal allergic rhinitis due to pollen Screening for colon cancer Special screening for malignant neoplasms, colon Morbid obesity due to excess calories (CMS/[facility]) Dyslipidemia ([facility]) Other and unspecified hyperlipidemia Encounter for long-term (current) use of medications Encounter for long-term (current) use of other medications Body mass index [BMI] 40.0-44.9, adult (Z68.41) Essential hypertension, benign (CMS/HCC)- Primary Essential hypertension, benign Dysphagia, unspecified type 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[facility]) Senile dementia, uncomplicated Chronic obstructive pulmonary disease, unspecified COPD type (CMS/HCC) Hiatal hernia with gastroesophageal reflux disease without esophagitis Primary osteoarthritis of both knees Primary insomnia Persistent disorder of initiating or maintaining sleep EDWIN (obstructive sleep apnea) Obstructive sleep apnea (adult) (pediatric) Essential hypertension, benign ([facility]/HCC)- Primary Essential hypertension, benign Chronic obstructive pulmonary [...] (BMI) of 38.0 to 38.9 in adult ([facility]) Primary insomnia- Primary Persistent disorder of initiating or maintaining sleep documented [facility]* Diagnosis Pre-op evaluation- Primary Preoperative examination, unspecified Preoperative examination Preoperative examination, unspecified Paraesophageal hernia Diaphragmatic hernia without mention of obstruction or gangrene Chronic obstructive pulmonary disease, unspecified COPD type ([facility]) CHENEY (dyspnea on exertion) Other dyspnea [...] aftercare following surgery [facility] Diagnosis Essential hypertension, benign [...] (BMI) of 38.0 to 38.9 in adult ([facility]) Medicare annual wellness visit, subsequent- Primary Prediabetes Other abnormal glucose Dyslipidemia (CMS/HCC) Other and unspecified hyperlipidemia Encounter for long-term (current) use of medications Encounter for long-term (current) use of other medications Essential hypertension, benign (CMS/HCC) Essential hypertension, benign Class 2 severe obesity due to excess calories with serious comorbidity and body mass index (BMI) of 36.0 to 36.9 in adult ([facility]) Chronic obstructive pulmonary disease, unspecified COPD type (CMS/HCC) 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CMS/HCC) Senile dementia, uncomplicated documented in this encounter [facility] Healthcare[facility] note* Diagnosis Essential hypertension, benign (CMS/HCC)- Primary Essential hypertension, benign Chronic obstructive pulmonary disease, unspecified COPD type ([facility]/HCC) Primary insomnia Persistent disorder of initiating or maintaining sleep Primary osteoarthritis of both knees Hiatal hernia with gastroesophageal reflux disease without esophagitis Seasonal allergic rhinitis due to pollen Screening for colon cancer Special screening for malignant neoplasms, colon Morbid obesity due to excess calories ([facility]) Dyslipidemia ([facility]) Other and unspecified hyperlipidemia Encounter for long-term (current) use of medications Encounter for long-term (current) use of other medications Body mass index [BMI] 40.0-44.9, adult (Z68.41) Essential hypertension, benign ([facility]/HCC)- Primary Essential hypertension, benign Dysphagia, unspecified type 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[facility]) Senile dementia, uncomplicated Chronic obstructive pulmonary disease, unspecified COPD type ([facility]/HCC) Hiatal hernia with gastroesophageal reflux disease without esophagitis Primary osteoarthritis of both knees Primary insomnia Persistent disorder of initiating or maintaining sleep EDWIN (obstructive sleep apnea) Obstructive sleep apnea (adult) (pediatric) Essential hypertension, benign ([facility]/HCC)- Primary Essential hypertension, benign Chronic obstructive pulmonary disease, unspecified COPD type ([facility]/HCC) Hiatal hernia with gastroesophageal reflux disease without esophagitis EDIWN (obstructive sleep apnea) Obstructive sleep apnea (adult) (pediatric) Primary osteoarthritis of both knees Primary insomnia Persistent disorder of initiating or maintaining sleep Class 2 severe obesity due to excess calories with serious comorbidity and body mass index (BMI) of 38.0 to 38.9 in adult ([facility]) Medicare annual wellness visit, subsequent- Primary Prediabetes Other abnormal glucose Dyslipidemia ([facility]) Other and unspecified hyperlipidemia Encounter for long-term (current) use of medications Encounter for long-term (current) use of other medications Essential hypertension, benign ([facility]) Essential hypertension, benign Class 2 severe obesity due to excess calories with serious comorbidity and body mass index (BMI) of 36.0 to 36.9 in adult ([facility]) Chronic obstructive pulmonary disease, unspecified COPD type ([facility]/HCC) 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[facility]) Senile dementia, uncomplicated Chronic obstructive pulmonary disease, unspecified COPD type ([facility]/HCC) Primary insomnia Persistent disorder of initiating or maintaining sleep documented in [facility] encounter [facility]* Diagnosis Essential hypertension, benign ([facility]/HCC)- Primary Essential hypertension, benign Chronic obstructive pulmonary disease, unspecified COPD type ([facility]/HCC) Primary insomnia Persistent disorder of initiating or [...] (BMI) of 38.0 to 38.9 in adult ([facility]) Medicare annual wellness visit, subsequent- Primary Prediabetes Other abnormal glucose Dyslipidemia (CMS/HCC) Other and unspecified hyperlipidemia Encounter for long-term (current) use of medications Encounter for long-term (current) use of other medications Essential hypertension, benign (CMS/HCC) Essential hypertension, benign Class 2 severe obesity due to excess calories with serious comorbidity and body mass index (BMI) of 36.0 to 36.9 in adult ([facility]) Chronic obstructive pulmonary disease, unspecified COPD type (CMS/HCC) 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CMS/HCC) Senile dementia, uncomplicated Primary insomnia Persistent disorder of initiating or maintaining sleep Chronic obstructive pulmonary disease, unspecified COPD type (CMS/HCC) documented in this encounter [facility] [...] (BMI) of 38.0 to 38.9 in adult ([facility]/HCC) Medicare annual wellness visit, subsequent- Primary Prediabetes Other abnormal glucose Dyslipidemia (CMS/HCC) Other and unspecified hyperlipidemia Encounter for long-term (current) use of medications Encounter for long-term (current) use of other medications Essential hypertension, benign (CMS/HCC) Essential hypertension, benign Class 2 severe obesity due to excess calories with serious comorbidity and body mass index (BMI) of 36.0 to 36.9 in adult ([facility]/HCC) Chronic obstructive pulmonary disease, unspecified COPD type (CMS/HCC) 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CMS/HCC) Senile dementia, uncomplicated Degenerative lumbar spinal stenosis- Primary Spinal stenosis of lumbar region Chronic obstructive pulmonary disease, unspecified COPD type (CMS/HCC) documented in this encounter [facility]* Diagnosis Essential hypertension, benign- Primary Essential hypertension, benign Chronic obstructive pulmonary disease, unspecified COPD type (HCC) Primary insomnia Persistent disorder of initiating or maintaining sleep Primary osteoarthritis of both knees Hiatal hernia with gastroesophageal reflux disease without esophagitis Seasonal allergic rhinitis due to pollen Screening for colon cancer Special screening for malignant neoplasms, colon Morbid obesity due to excess calories (CMS-HCC) Dyslipidemia Other and unspecified hyperlipidemia Encounter for long-term (current) use of medications Encounter for long-term (current) use of other medications Body mass index [BMI] 40.0-44.9, adult (Z68.41) Essential hypertension, benign- Primary Essential hypertension, benign Dysphagia, unspecified type 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HCC) Senile dementia, uncomplicated Chronic obstructive pulmonary disease, unspecified COPD type (HCC) Hiatal hernia with gastroesophageal reflux disease without esophagitis Primary osteoarthritis of both knees Primary insomnia Persistent disorder of initiating or maintaining sleep EDWIN (obstructive sleep apnea) Obstructive sleep apnea (adult) (pediatric) Essential hypertension, benign- Primary Essential hypertension, benign Chronic obstructive pulmonary disease, unspecified COPD type (HCC) Hiatal hernia with gastroesophageal reflux disease without esophagitis EDWIN (obstructive sleep apnea) Obstructive sleep apnea (adult) (pediatric) Primary osteoarthritis of both knees Primary insomnia Persistent disorder of initiating or maintaining sleep Class 2 severe obesity due to excess calories with serious comorbidity and body mass index (BMI) of 38.0 to 38.9 in adult ([facility] Medicare annual wellness visit, subsequent- Primary Prediabetes Other abnormal glucose Dyslipidemia Other and unspecified hyperlipidemia Encounter for long-term (current) use of medications Encounter for long-term (current) use of other medications Essential hypertension, benign Essential hypertension, benign Class 2 severe obesity due to excess calories with serious comorbidity and body mass index (BMI) of 36.0 to 36.9 in adult ([facility] Chronic obstructive pulmonary disease, unspecified COPD type (HCC) 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HCC) Senile dementia, uncomplicated Degenerative lumbar spinal stenosis- Primary Spinal stenosis of lumbar region Chronic obstructive pulmonary disease, unspecified COPD type (HCC) Essential hypertension, benign- Primary Essential hypertension, benign Chronic obstructive pulmonary disease, unspecified COPD type (HCC) Primary insomnia Persistent disorder of initiating or maintaining sleep Primary osteoarthritis of both knees Breast cancer screening by mammogram Former smoker Personal history of tobacco use, presenting hazards to health [facility] Narrative No data available for this section [facility] No data available for this section [facility] Progress note No data available for this section [facility] Consultation (Routine) - Pending Review Specialty Diagnoses / Procedures Referred By Contac t Referred To Contact General Surgery Diagnoses Screening for colon cancer Procedures FL OFFICE/OUTPATIENT NEW HIGH MDM 60 MINUTES Latrell Jack MD [address] [place] [address] Pa Webb MD [address] [place] [address] Referral ID Status Reason Start Date Expiration Date Visits Requested Visits Authorized [id number] Pending Review Specialty Services Required 08/11/2023 02/07/2024 [...] Time Advance Directives No December 12 5:44pm Advance Directive Response Recorded Date/ Time Advance Directives No December 17 2:30pm Hospital Course Note [facility] SUR[facility]ERY Clinical Discharge Summary PERSON INFORMATION Name SHEY OBRIEN Age 68 Years 52 Sex FEMALE Language Albanian PCP LATRELL JACK Marital Status Single Med Service Ambulatory Surgery Acct# Arrival 02/04/19 11:44:00 Visit Reason SURGERY - RELEASE TRIGGER FINGER LEFT RING FINGER AND E/O CYST LEFT RING FINGER Acuity LOS 012 05:38 Address: [address] [place] [id number] Comment: PROVIDER INFORMATION VITALS INFORMATION Vital Sign [...] COMPUTED TOMOGRAPHY THORAX W/O CNTRST Katarzyna Snyder, PILLOWCASE CUTTER.CREATIVE ARTS THERAPIST [address] [place] [address] [address] [place] [address] Referral ID Status Reason Start Date Expiration Date Visits Requested Visits Authorized [id number] New Request Auto-Generat ed Referral 08/07/2025 09/06/2025 1 1 Specialty Diagnoses / Procedures Referred By Contac t Referred To Contact Radiology Diagnoses Memory loss Procedures MR brain wo contrast Diomedes Fitzgerald, [address] [place] [address] Referral ID Status Reason Start Date Expiration Date V isits Requested Visits Authorized [id number] Pending Review 03/07/2024 09/03/2024 1 1 Specialty Diagnoses / Procedures Referred By Contac t Referred To Contact Diagnoses Preoperative examination Paraesophageal hernia Procedures REFER TO [facility] - PREOPERATIVE OPTIMIZATION OFFICE/OUTPATIENT NEW HIGH MDM 60 MINUTES Katarzyna Carter, PILLOWCASE CUTTER.CREATIVE ARTS THERAPIST [address] [place], [place] [id number] Referral ID Status Reason Start Date Expiration Date Visits Requested Visits Authorized [id number] Authorized PCP Requested Referral 05/04/2025 1 1 Specialty Diagnoses / Procedures Referred By Contac t [facility] Diagnoses Preoperative examination Paraesophageal hernia Procedures ECG COMPLETE ECG ROUTINE ECG W/LEAST 12 LDS W/I&R Katarzyna Carter, PILLOWCASE CUTTER.CREATIVE ARTS THERAPIST [address] [place] [address] [facility] [address] [place] [address] Referral ID Status Reason Start Date Expiration Date Visits Requested Visits Authorized [id number] New Request Auto-Generat ed Referral 4 05/04/2025 1 1 Additional Source Comments INFORMATION SOURCE (unrecogn ized section and content) DATE CREATED AUTHOR 02/17/2019 [facility] DATE CREATED AUTHOR AUTHOR'S ORGANIZ ATION 08/03/2022 [facility] DATE CREATED AUTHOR AUTHOR'S ORGANIZ ATION 03/28/2024 [facility] DATE CREATED AUTHOR AUTHOR'S ORGANIZ ATION 04/04/[address] [facility] DATE CREATED AUTHOR AUTHOR'S ORGANIZ ATION 08/12/2024 [facility] DATE CREATED AUTHOR AUTHOR'S ORGANIZ ATION 12/13/[address] [facility] DATE CREATED AUTHOR AUTHOR'S ORGANIZ ATION 12/17/[address] [facility] DATE CREATED AUTHOR AUTHOR'S ORGANIZ ATION 02/08/2025 [facility] DATE CREATED AUTHOR AUTHOR'S ORGANIZ ATION 02/19/2025 [facility] DATE CREATED AUTHOR AUTHOR'S ORGANIZ ATION 02/25/2025 [facility] EPIC Care Teams (unrecognized sec tion and content) Flute Polisher Relationship Specialty Start Date End Date Latrell Jack MD [address] [place] [address] PCP - General Family Medicine 08/05/23 Flute Polisher Relationship Specialty Start Date End Date Latrell Jack MD [address] [place] [address] PCP - General Family Medicine 08/05/23 Flute Polisher Relationship Specialty Start Date End Date Latrell Jack MD [address] [place] [address] PCP - General Family Medicine 08/05/23 Flute Polisher Relationship Specialty Start Date End Date Dafne Spears MD [address] [place] [id number] Internal Medicine 04/02/24 Flute Polisher Relationship Specialty Start Date End Date Dafne Spears MD [address] [place] [id number] Internal Medicine 04/02/24 Flute Polisher Relationship Specialty Start Date End Date Dafne Spears MD [address] [place] [id number] Internal Medicine 04/02/24 Flute Polisher Relationship Specialty Start Date End Date Latrell Jack MD [address] [place] [address] PCP - General Family Medicine 08/05/23 Flute Polisher Relationship Specialty Start Date End Date Latrell Jack MD [address] [place] [address] PCP - General Family Medicine 08/05/23 Flute Polisher Relationship Specialty Start Date End Date Latrell Jack MD [address] [place] [address] PCP - General Family Medicine 08/05/23 Diomedes Fitzgerald DO [address] [place] [address] Referring Physician Neurology 05/30/24 Flute Polisher Relationship Specialty Start Date End Date Latrell Jack MD [address] [place] [address] PCP - General Family Medicine 08/05/23 Flute Polisher Relationship Specialty Start Date End Date Latrell Jack MD [address] [place] [address] PCP - General Family Medicine 08/05/23 Flute Polisher Relationship Specialty Start Date End Date Latrell Jack MD [address] [place] [address] PCP - General Family Medicine 08/05/23 Flute Polisher Relationship Specialty Start Date End Date Latrell Jack MD [address] [place] [address] PCP - General Family Medicine 08/05/23 Flute Polisher Relationship Specialty Start Date End Date Latrell Jack MD [address] [place] [address] PCP - General Family Medicine 08/05/23 Flute Polisher Relationship Specialty Start Date End Date Latrell Jack MD [address] [place] [address] PCP - General Family Medicine 08/05/23 Diomedes Fitzgerald DO [address] [place] [address] Referring Physician Neurology 05/30/24 Flute Polisher Relationship Specialty Start Date End Date Latrell Jack MD [address] [place] [address] PCP - General Family Medicine 08/05/23 Diomedes Fitzgerald DO [address] [place] [address] Referring Physician Neurology 05/30/24 Flute Polisher Relationship Specialty Start Date End Date Latrell Jack MD [address] [place] [address] PCP - General Family Medicine 08/05/23 Diomedes Fitzgerald DO [address] [place] [address] Referring Physician Neurology 05/30/24 Flute Polisher Relationship Specialty Start Date End Date Latrell Jack MD [address] [place] [address] PCP - General Family Medicine 07/01/24 Dafne Spears MD [address] [address] Internal Medicine 04/02/24 Flute Polisher Relationship Specialty Start Date End Date Latrell Jack MD [address] [place] [address] PCP - General Family Medicine 07/01/24 Dafne Spears MD [address] [address] Internal Medicine 04/02/24 Flute Polisher Relationship Specialty Start Date End Date Latrell Jack MD [address] [place] [address] PCP - General Family Medicine 08/05/23 Diomedes Fitzgerald DO [address] [place] [address] Referring Physician Neurology 05/30/24 Flute Polisher Relationship Specialty Start Date End Date Latrell Jack MD [address] [place] [address] PCP - General Family Medicine 08/05/23 Diomedes Fitzgerald DO [address] [place] [phone] Referring Physician Neurology 05/30/24 Flute Polisher Relationship Specialty Start Date End Date Latrell Jack MD [address] [place] [address] PCP - General Family Medicine 07/01/24 Dafne Spears MD [address] [place] [address] Internal Medicine 04/02/24 Flute Polisher Relationship Specialty Start Date End Date Latrell Jack MD [address] [place] [address] PCP - General Family Medicine 08/05/23 Laterll Jack MD [address] [place] [address] PCP - ACO Reach 08/16/24 Diomedes Fitzgerald DO [address] [place] [address] Referring Physician Neurology 05/30/24 Flute Polisher Relationship Specialty Start Date End Date Latrell Jack MD [address] [place] [address] PCP - General Family Medicine 08/05/23 Latrell Jack MD [address] [place] [address] PCP - ACO Reach 08/16/24 Diomedes Fitzgerald DO [address] [place], [place] [phone] Referring Physician Neurology 05/30/24 Flute Polisher Relationship Specialty Start Date End Date Latrell Jack MD [address] [place] [address] PCP - General Family Medicine 08/05/23 Latrell Jack MD [address] [place] [address] PCP - ACO Reach 08/16/24 Diomedes Fitzgerald DO [address] [place] [address] Referring Physician Neurology 05/30/24 Flute Polisher Relationship Specialty Start Date End Date Latrell Jack MD [address] [place] [address] PCP - General Family Medicine 08/05/23 Latrell Jack MD [address] [place] [address] PCP - ACO Reach 08/16/24 Diomedes Fitzgerald DO [address] [place] [address] Referring Physician Neurology 05/30/24 Flute Polisher Relationship Specialty Start Date End Date Latrell Jack MD [address] [place] [address] PCP - General Family Medicine 08/05/23 Latrell Jack MD [address] [place] [place] [address] PCP - ACO Reach 08/16/24 Diomedes Fitzgerald DO [address] [place] [address] Referring Physician Neurology 05/30/24 Flute Polisher Relationship Specialty Start Date End Date Latrell Jack MD [address] [place] [address] PCP - General Family Medicine 08/05/23 Latrell Jack MD [address] [place] [address] PCP - ACO Reach 08/16/24 Diomedes Fitzgerald DO [address] [place] [address] Referring Physician Neurology 05/30/24 Flute Polisher Relationship Specialty Start Date End Date Latrell Jack MD [address] [place] [address] PCP - General Family Medicine 08/05/23 Latrell Jack MD [address] [place] [address] PCP - ACO Reach 08/16/24 Diomedes Fitzgerald DO [address] [place] [address] Referring Physician Neurology 05/30/24 Team Status: Active [...] Other Provider Active Start: December 13, 2024 Team Status: Inactive Member Role Status Dates Latrell Jack MD Primary Care Provider Active S tart: December 12, 2024 End: December 16, 2024 Erik Kim MD Admit Provider Active Start: December 12, 2024 End: December 16, 2024 Tra Hobson MD Attending Provider Active St art: December 12, 2024 End: December 16, 2024 Team Status: Active Member Role Status Dates Latrell Jack MD Primary Care Provider Active S tart: December 13, 2024 Eirk Kim MD Admit Provider Active Start: December 13, 2024 Erik Kim MD Attending Provider Active Start: December 13, 2024 Erik Kim MD Other Provider Active Start: December 13, 2024 Team Status: Inactive Member Role Status Dates Latrell Jack MD Primary Care Provider Active S tart: February 03, 2025 End: February 03, 2025 Diomedes Fitzgerald DO Attending Provider Active Sta rt: February 03, 2025 End: February 03, 2025 Flute Polisher Relationship Specialty Start Date End Date Latrell Jack MD [address] [place] [address] PCP - General Family Medicine 08/05/23 Latrell Jack MD [address] [place] [address] PCP - ACO Reach 08/16/24 Diomedes Fitzgerald DO [address] [place] [address] Referring Physician Neurology 05/30/24 Sugar Arenas, HOME PERFORMANCE CONSULTANT [address] [place] [address] Brusher Hand Family Medicine 01/16/25 Flute Polisher Relationship Specialty Start Date End Date Latrell Jack MD [address] [place] [address] PCP - General Family Medicine 08/05/23 Latrell Jack MD [address] [place] [address] PCP - ACO Reach 08/16/24 Diomedes Fitzgerald DO [address] [place] [address] Referring Physician Neurology 05/30/24 Sugar Arenas, HOME PERFORMANCE CONSULTANT [address] [facility] [address] Brusher Hand Family Medicine 01/16/25 Reason for Visit (unrecogniz ed section and [...] Diagnoses 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CMS/HCC) Other dysphagia Procedures FL OFFICE/OUTPATIENT [facility] 60 MINUTES Latrell Jack MD [address] [place] [address] Diomedes Fitzgerald, [address] [place] [address] Referral ID Status Reason Start Date Expiration Date V isits Requested Visits Authorized [id number] Closed Specialty Services Required 02/09/2024 08/07/2024 1 1 Reason Comments Memory Loss Specialty Diagnoses / Procedures Referred By Contac t Referred To Contact Diagnoses Preoperative examination Paraesophageal hernia Procedures REFER TO [facility] - PREOPERATIVE OPTIMIZATION OFFICE/OUTPATIENT [facility] 60 MINUTES Katarzyna Sndyer APRN.[facility] [address] [place] [address] Referral ID Status Reason Start Date Expiration Date V isits Requested Visits Authorized [id number] Closed PCP Requested Referral 05/06/2024 05/04/2025 1 1 Reason Onset Date Comments Med Refill 07/30/2024 Reason Comments Post Op Reason Comments Medicare Annual Wellness Visit Subsequen t wellness Reason Comments Med Refill Reason Onset Date Comments Med Refill 10/30/2024 Reason Comments Follow-up ER F/U Reason Comments Follow-up 6m Source Comments (unrecognize d section and content) In the event this informatio n is protected by the Federal Confidentiality of Alcohol and Drug Abuse Patient Records regulations: The Federal rules restrict any use of the information to criminally investigate or prosecute any alcohol or drug abuse patient.[facility] the event this information is protected by the Federal Confidentiality of Alcohol and Drug Abuse Patient Records regulations: The Federal rules restrict any use of the information to criminally investigate or prosecute any alcohol or drug abuse patient.[facility] the event this information is protected by the Federal Confidentiality of Alcohol and Drug Abuse Patient Records regulations: The Federal rules restrict any use of the information to criminally investigate or prosecute any alcohol or drug abuse patient.[facility] the event this information is protected by the Federal Confidentiality of Alcohol and Drug Abuse Patient Records regulations: The Federal rules restrict any use of the information to criminally investigate or prosecute any alcohol or drug abuse patient.[facility] the event this information is protected by the Federal Confidentiality of Alcohol and Drug Abuse Patient Records regulations: The Federal rules restrict any use of the information to criminally investigate or prosecute any alcohol or drug abuse patient.[facility] CenterIn the event this information is protected by the Federal Confidentiality of Alcohol and Drug Abuse Patient Records regulations: The Federal rules restrict any use of the information to criminally investigate or prosecute any alcohol or drug abuse patient.[facility] FOR RECORDS PERTAINING TO PATIENTS [...] BE BASED ON THE PRIMARY CLINICAL RECORDS. [facility] [employer]. provides no warranty or guarantee of the accuracy or completeness of information in this document.
== END 2025-02-27 11:26 | disposition home or self-care (01) ==
LOC: MAMMO 11:25
PROVIDERS: PCP Family Medicine; Visit Provider Family Medicine
DX: Z12.31 Encounter for screening mammogram for malignant neoplasm of breast (principal); Z80.1 Family history of malignant neoplasm of trachea, bronchus and lung
CPT/HCPCS: 77063; 77067

== ENCOUNTER 2025-03-04 13:28 | Outpatient (OUT) | payer MEDICARE, OTHER, SELFPAY ==
--- OUTSIDE RECORDS SUMMARY | 2012-08-08 03:45 | XMS_ITS | Continuity of Care Document ---
Author Organization [employer] [facility] Address [address] [place] [address] [place] [address] Phone Care Team Providers Care Nanny Babysitter Name Role Phone Theo Palacios MD Unavailable Unavailable Procedures Procedure Date UPPR GI ENDOSCOPY, DIAGNOSIS OFFICE/OUTPATIENT VISIT, [facility] OFFICE CONSULTATION Advance Directives Directive Yes / No Effective Date File Name No Information Encounters Encounter Description Practice Location Reason(s) For Visit Diagnoses Date Provider Providers Copied on Encounter [employer] [facility], [address] [place] [address], [id number], [place] tel:[phone] [facility] OP No Information Suzanne Venegas. [address] [place] [address], [id number], [place]. tel:[phone] Referring Provider: Teho Izquierdo, [address] [place] [address], [place], [address]. tel:[phone] OFFICE/OUTPATI ENT VISIT, [facility] [employer] [facility], [address] [place] [address], [id number], [place] tel:[phone] [facility] No Information Suzanne Venegas. [address] [place] [address], [id number], [place]. tel:[phone] Referring Provider: Theo Izquierdo, [address] [place] [address] 222, [place], [address]. tel:[phone] OFFICE CONSULTATION [employer] [facility], [address] [place] [address] B, [place], [place], [id number], [place] tel:[phone] [facility] No Information Suzanne Venegas. [address], [place], [place], [id number], [place]. tel:[phone] Referring Provider: Theo Izquierdo, [address], [place], [address]. tel:[phone] Family History Family Member Type Diagnosis Age At Onset No Information Payers Payer name Insurance type Covered libertarian ID Maria Alejandra davis(s) Carla [id number] Social History Type Description Quantity Date Captured [...]
--- OUTSIDE RECORDS SUMMARY | 2025-02-24 10:30 | XMS_ITS | Encounter Summary ---
Author Organization [facility] Address [address] [facility] [place] [address] Care Team Providers Care Experimental Mechanic Name Role Phone Latrell Mckeon MD Primary Care Provider [phone] Siomara Fitzgerald DO Unavailable [phone] Latrell Mckeon MD Unavailable Sugar Arenas POURER Unavailable [phone] Reason for Referral * Imaging (Routine) - Authorized Specialty Diagnoses / Procedures Referred By Contac t Referred To Contact Radiology Diagnoses Former smoker Procedures CT lung screening low dose Latrell Mckeon MD [address] [place] [address] Phone: tel: fax: [facility] [address] [place] [address] Phone: tel: fax: Referral ID Status Reason Start Date Expiration Date V isits Requested Visits Authorized [id number] Authorized 02/24/2025 08/23/2025 1 1 Reason for Visit * Reason Comments Follow-up 6m Encounter Details Date Type Department Care Team ([facility] Contact Info) Description 02/24/2025 10:30 AM EDT [facility] [address] [place] [address] Latrell Mckeon MD [address] [place] [address] Essential hypertension, benign (Primary Dx); Chronic obstructive [...] any clubs o r organizations such as zoroastrian groups, unions, fraternal or athletic groups, or [...] 0 08/27/2024 [facility] - Occupational Stress Questionnaire Answer [...] any time in the past 12 m [facility], were you homeless or living in a chcf (including now)? No 02/02/2024 Comments Unknown Sex [...] 04/29/2025 1:15 PM EDT Office Visit [facility] [address] [place] [address] Latrell Mckeon MD [address] [place] [address] Scheduled Orders Name Type Priority Associated Diagnoses Orde r Schedule CT lung screening low dose Imaging Routine Former smoker Expected: 02/24/2025, Expires: 02/24/2026 documented as of this encounter Procedures Procedure Name Priority Date/Time Associated Diagnosis Comments BI MAMMOGRAM SCREENING BILATERAL Routine 02/27/2025 2:18 PM EDT Breast cancer screening by mammogram documented in this encounter Results * Bilateral screening mammogram (02/27/2025 2:18 PM EDT) us Latrell Mckeon MD IMG BI PROCEDURES Final Result [facility] [place] [address], documented in this encounter Visit Diagnoses Diagnosis Essential hypertension, [...] documented as of this encounter Care Teams Experimental Mechanic Relationship Specialty Start Date End Date Latrell Mckeon MD [address] [place] [address] PCP - General Family Medicine 08/05/23 Latrell Mckeon MD [address] [place] [address] PCP - ACO Reach 08/16/24 Siomara Fitzgerald DO [address] [place] [address] Referring Physician Neurology 05/30/24 Sugar Arenas, FABIANO [address] [place] [address] Product Development Scientist Family Medicine 01/16/25 03/04/25 documented as of this encounter
--- OUTSIDE RECORDS SUMMARY | 2025-03-04 13:30 | XMS_ITS | Encounter Summary ---
Author Organization [facility] Address [address] [place] [address] Care Team Providers Care B Operator Name Role Phone Latrell Mckeon MD Primary Care Provider [phone] Siomara Fitzgerald DO Unavailable [phone] Latrell Mckeon MD Unavailable Sugar Arenas TICKETER Unavailable [phone] Reason for Visit * Reason Comments Med Refill Encounter Details Date Type Department Care Team (Late st Contact Info) Description 08/02/2024 [facility] [address] [place] [address] Latrell Mckeon MD [address] [place] [address] Social History Tobacco Use Types Packs/Day Years [...] often do you attend chur ch or oriental orthodox services? Patient declined 02/02/2024 Do you belong to any clubs o r organizations such as restorationism groups, unions, fraternal or athletic groups, or [...] Recorded Patient Health Questionnaire-2 Score 0 08/11/2023 [facility] of Occupat ional [...] Office Visit [facility] [address] [place] [address] Latrell Mckeon MD [address] [place] [address] documented as of this encounter Visit Diagnoses Not on filedocumented in this encounter Care Teams B Operator Relationship Specialty Start Date End Date Latrell Mckeon MD [address] [place] [address] PCP - General Family Medicine 08/05/23 Latrell Mckeon MD [address] [place] [address] PCP - ACO Reach 08/16/24 Siomara Fitzgerald DO [address] [place] [address] Referring Physician Neurology 05/30/24 Sugar Arenas, FABIANO [address] [place] [address] Warp Hauler Family Medicine 01/16/25 03/04/25 documented as of this encounter
--- OUTSIDE RECORDS SUMMARY | 2025-03-04 13:30 | XMS_ITS | Encounter Summary ---
Author Organization [facility] Address [address] [place] [address] Care Team Providers Care Atomic Process Engineer Name Role Phone Latrell Mckeon MD Primary Care Provider [phone] Siomara Fitzgerald DO Unavailable [phone] Latrell Mckeon MD Unavailable Sugar Arenas TOLL SERVICE OBSERVER Unavailable [phone] Encounter Details Date Type Department Care Team (Late st Contact Info) Description 07/18/2024 Abstract [facility] [address] [place] [address] Latrell Mckeon MD [address] [place] [address] Social History Tobacco Use Types Packs/Day Years [...] [facility] of Occupat ional [facility] - Occupational Stress [...] any time in the past 12 m [facility], were you homeless or living in a [place] health care facility (including now)? No 02/02/2024 Comments Unknown Sex [...] Office Visit [facility] [address] [place] [address] Latrell Mckeon MD [address] [place] [address] documented as of this encounter Visit Diagnoses Not on filedocumented in this encounter Care Teams Atomic Process Engineer Relationship Specialty Start Date End Date Latrell Mckeon MD [address] [place] [address] PCP - General Family Medicine 08/05/23 Latrell Mckeon MD [address] [place] [address] PCP - ACO Reach 08/16/24 Siomara Fitzgerald DO [address] [place] [address] Referring Physician Neurology 05/30/24 uSgar Arenas, FABIANO [address] [place] [address] Cupola Mechanic Family Medicine 01/16/25 03/04/25 documented as of this encounter
--- OUTSIDE RECORDS SUMMARY | 2025-03-04 13:30 | XMS_ITS | Encounter Summary ---
Author Organization [facility] Address [address] [place] [address] Care Team Providers Care Contact Center Director Name Role Phone Latrell Mckeon MD Primary Care Provider [phone] Siomara Fitzgerald DO Unavailable [phone] Latrell Mckeon MD Unavailable Sugar Arenas BEARING MACHINE OPERATOR Unavailable [phone] Encounter Details Date Type Department Care [...] How often do you attend chur or taoism services? Patient declined 02/02/2024 Do you belong to any clubs o r organizations such as oriental orthodox groups, unions, fraternal or athletic groups, or [...] Recorded Patient Health Questionnaire-2 Score 0 08/11/2023 [facility] of Occupat ional [facility] - Occupational Stress Questionnaire Answer Date [...] any time in the past 12 m [facility], were you homeless or living in a fci (including now)? No 02/02/2024 Comments Unknown Sex [...] Visit [facility] [address] [place] [address] Latrell Mckeon MD [address] [place] [address] documented as of this encounter Procedures Procedure Name Priority Date/Time Associated Diagnosis Comments MR LUMBAR SPINE WO CON 04/22/2024 1:57 PM EDT documented in this encounter Results * MR LUMBAR SPINE WO CON (04/22/2024 1:57 PM EDT) Anatomical Region Laterality Modality Other 04/22/2024 1:57 PM EDT Narrative 04/22/2024 2:00 PM EDT [facility] [place] [id number] Magnetic Resonance Report Signed Patient: SHEY BOSS MR#: [id number] : 1950 Acct:[id number] Age/Sex: 73 / F ADM Date: 04/22/24 Loc: MRI Attending Dr: Talat Arguello M.D. Ordering Physician: Talat Arguello M.D. Date of Service: 04/22/24 Procedure(s): MR lumbar spine wo con Accession Number(s): [id number] cc: Talat Arguello M.D.; Latrell Mckeon M.D. [place] [id number] Patient Name: SHEY BOSS MRN: [id number] date: 1950 Sex: F Assigned Patient Location: MRI Current Patient Location: Accession/Order Number: [id number] Exam Date: 04/22/2024 07:45 Report Date: 04/22/2024 [...] Signed By: 04/22/24 1400 DD/ 1357 TD/TT: Black Oxide Coating Equipment Tender: Procedure Note Radiology, Radiologist, - 04/22/2024 [place] [address] Magnetic Resonance Report Signed Patient: SHEY BOSS LMR#: [id number] : 1950cct:[id number] Age/Sex: 73 / FADM Date: 04/22/24 Loc: MRI Attending Dr: Talat Arguello M.D. Ordering Physician: Talat Arguello M.D. Date of Service: 04/22/24 Procedure(s): MR lumbar spine wo con Accession Number(s): [id number] cc: Talat Arguello M.D.; Latrell Mckeon M.D. [facility] [place] [address] Patient Name: SHEY BOSS MRN: [id number] date: 1950 Sex: F Assigned Patient Location: MRI Current Patient Location: Accession/Order Number: [id number] Exam Date: 04/22/2024 07:45 Report Date: 04/22/2024 [...] M.D. Signed By:04/22/24 1400 DD/ 1357 TD/TT: Black Oxide Coating Equipment Tender: Generic External Data Provider [facility] Final Result documented in this encounter Visit Diagnoses Not on filedocumented in this encounter Care Teams Contact Center Director Relationship Specialty Start Date End Date Latrell Mckeon MD [address] [place] [address] PCP - General Family Medicine 08/05/23 Latrell Mckeon MD [address] [place] [address] PCP - ACO Reach 08/16/24 Siomara Fitzgerald DO [address] [place] [address] Referring Physician Neurology 05/30/24 Sugar Arenas, FABIANO [address] [place] [address] Railroad Signal Technician Family Medicine 01/16/25 03/04/25 documented as of this encounter
--- OUTSIDE RECORDS SUMMARY | 2025-03-04 13:30 | XMS_ITS | Encounter Summary ---
Author Organization [facility] Address [address] [place] [address] Care Team Providers Care Rating Officer Name Role Phone Latrell Mckeon MD Primary Care Provider [phone] iSomara Fitzgerald DO Unavailable [phone] Latrell Mckeon MD Unavailable Sugar Arenas OUTCOMES ANALYST Unavailable [phone] Encounter Details Date Type Department Care Team (Late st Contact Info) Description 12/12/2024 Orders Only [facility] [address] [place] [address] Amalia Woodson NP [address] [place] [address] Social History Tobacco Use Types [...] often do you attend chur ch or cheondoism services? Patient declined 02/02/2024 Do you belong to any clubs o r organizations such as confucianist groups, unions, fraternal or athletic groups, or [...] Recorded Patient Health Questionnaire-2 Score 0 08/27/2024 [facility] of Occupat ional [facility] - Occupational Stress Questionnaire Answer Date [...] were you homeless or living in a residential (including now)? No 02/02/2024 Comments Unknown Sex and Gender Information Value Date Recorded Sex Assigned at Not on file Legal Sex Female 7:08 PM EDT Gender Identity Not on file Sexual Orientation Not on file documented as of this encounter Plan of Treatment Upcoming Encounters Date Type Department Care Team (Late st Contact Info) Description 04/29/2025 1:15 PM EDT [facility] [address] [place] [address] Latrell Mckeon MD [address] [place] [address] documented as of this encounter Procedures Procedure Name Priority Date/Time Associated Diagnosis Comments XR HIP 2-3 VIEWS LEFT Routine 12/12/2024 11:07 AM EDT documented in this encounter Results * XR HIP 2-3 VIEWS LEFT (12/12/2024 11:07 AM EDT) Anatomical Region Laterality Modality Radiographic Lani ging us Amalia Woodson SEC ACCOUNTANT IMG XR PROCEDURES Final Result documented in this encounter Visit Diagnoses Not on filedocumented in this encounter Additional Health Concerns Assessment Noted Time PHQ-9 Depression Total Score: 4 08/27/19 25 10:00 AM EST documented as of this encounter Care Teams Rating Officer Relationship Specialty Start Date End Date Latrell Mckeon MD [address] [place] [address] PCP - General Family Medicine 08/05/23 Latrell Mckeon MD [address] [place] [address] PCP - ACO Reach 08/16/24 Siomara Fitzgerald DO [address] [place], [place] [address] Referring Physician Neurology 05/30/24 Sugar Arenas, FABIANO [address] [place], [place] [address] Reference Services Head Family Medicine 01/16/25 03/04/25 documented as of this encounter
--- OUTSIDE RECORDS SUMMARY | 2025-03-04 13:30 | XMS_ITS | Encounter Summary ---
Author Organization [facility] Address [address] [place] [address] Care Team Providers Care Sales And Marketing Assistant Name Role Phone Latrell Mckeon MD Primary Care Provider [phone] Siomara Fitzgerald DO Unavailable [phone] Latrell Mckeon MD Unavailable Sugar Arenas FACULTY RESEARCH ASSISTANT Unavailable [phone] Encounter Details Date Type Department Care [...] How often do you attend chur or rastafari services? Patient declined 02/02/2024 Do [...] Recorded Patient Health Questionnaire-2 Score 0 08/11/2023 [facility] of Occupat ional [facility] - Occupational Stress Questionnaire Answer Date [...] any time in the past 12 m [facility], were you homeless or living [...] Visit [facility] [address] [place] [address] Latrell Mckeon MD [address] [place] [address] documented as of this encounter Procedures Procedure [...] soft tissues: Unremarkable. IMPRESSION: Large hiatal hernia. Cleaner And Dyer: [facility] Transcribe Date/Time: Jul 24 2024 7:28A Dictated by : JARVIS HUGO MD This examination was interpreted and the report reviewed and electronically signed by: JARVIS HUGO MD on Jul 24 2024 7:30AM EST [id number]^SI^ACN Procedure Note Radiology, Radiologist, - 07/24/2024 * [...] soft tissues: Unremarkable. IMPRESSION: Large hiatal hernia. Cleaner And Dyer: [facility] Transcribe Date/Time: Jul 24 2024 7:28A Dictated by : JARVIS HUGO MD This examination was interpreted and the report reviewed and electronically signed by: JARVIS HUGO MD on Jul 24 2024 7:30AM EST [id number]^SI^ACN us Generic External Data Provider [facility] Final Result * [facility] CONFIRM BLOOD TYPE (07/23/2024 11:47 AM EST) ABO B [facility] RH Positive [facility] 07/23/2024 11:4 7 AM EST 07/23/2024 11:47 AM EST Narrative [facility] - 07/23/2024 11:46 AM EST Specimen Type: BLOOD SPECIMEN Ordering Facility: [facility] Address: [address] [place] [address] [facility]LO[facility] CLIA [id number] [address] [place] [address] Generic External Data Provider [facility] F inal Result Performing Organization Address [facility] de Phone Number [facility]ESSI[facility] [address] [address] * [facility] TYPE AND SCREEN,30 DAY (07/23/2024 11:41 AM EST) ABO B [facility] RH Positive [facility] ANTIBODY SCREEN Negative [facility] 07/23/2024 11:4 1 AM EST 07/23/2024 11:42 AM EST Narrative [facility] - 07/23/2024 11:41 AM EST Specimen Type: BLOOD SPECIMEN Ordering Facility: [facility] Address: [address] [place] [address] CC [facility]IN BLOOD B[facility] CLIA [id number] [address] [place], [place] [address] [address] Generic External Data Provider [facility] F inal Result Performing Organization Address [facility] Co de Phone Number JARRET KHAN [address] [place] [phone] documented in this encounter Visit Diagnoses Not on filedocumented in this encounter Care Teams Sales And Marketing Assistant Relationship Specialty Start Date End Date Latrell Mckeon MD [address] [place] [address] PCP - General Family Medicine 08/05/23 Latrell Mckeon MD [address] [place] [address] PCP - ACO Reach 08/16/24 Siomara Fitzgerald DO [address] [place] [address] Referring Physician Neurology 05/30/24 Sugar Arenas, FABIANO [address] [place] [address] Pediatric Sports Medicine Specialist Family Medicine 01/16/25 03/04/25 documented as of this encounter
--- OUTSIDE RECORDS SUMMARY | 2025-03-04 13:30 | XMS_ITS | Encounter Summary ---
Author Organization [facility] Address [address] [place] [address] Care Team Providers Care Fire Fighters Dispatcher Name Role Phone Latrell Mckeon MD Primary Care Provider [phone] Siomara Fitzgerald DO Unavailable [phone] Latrell Mckeon MD Unavailable Sugar Arenas CHIEF PROJECTIONIST Unavailable [phone] Encounter Details Date Type Department Care Team (Late st Contact Info) Description 12/04/2024 Abstract [facility] [address] [place] [address] Latrell Mckeon MD [address] [place] [address] Social History Tobacco Use Types Packs/Day Years [...] often do you attend chur ch or adventism services? Patient declined 02/02/2024 Do you belong [...] Recorded Patient Health Questionnaire-2 Score 0 08/27/2024 [facility] of Occupat ional Health - Occupational [...] any time in the past 12 m [facility], were you homeless or living in a nursing home (including now)? No 02/02/2024 Comments Unknown Sex and Gender Information Value Date Recorded Sex Assigned at Not on file Legal Sex Female 7:08 PM EDT Gender Identity Not on file Sexual Orientation Not on file documented as of this encounter Plan of Treatment Upcoming Encounters Date Type Department Care Team (Late st Contact Info) Description 04/29/2025 1:15 PM EDT [facility] [address] [place] [address] Latrell Mckeon MD [address] [place] [address] documented as of this encounter Visit Diagnoses Not on filedocumented in this encounter Additional Health Concerns Assessment Noted Time PHQ-9 Depression Total Score: 4 08/27/19 25 10:00 AM EST documented as of this encounter Care Teams Fire Fighters Dispatcher Relationship Specialty Start Date End Date Latrell Mckeon MD [address] [place] [address] PCP - General Family Medicine 08/05/23 Latrell Mckeon MD [address] [place] [address] PCP - ACO Reach 08/16/24 Siomara Fitzgerald DO [address] [place] [address] Referring Physician Neurology 05/30/24 Sugar Arenas, FABIANO [address] [place], [place] [address] Bronc Buster Family Medicine 01/16/25 03/04/25 documented as of this encounter
--- OUTSIDE RECORDS SUMMARY | 2025-03-04 13:30 | XMS_ITS | Encounter Summary ---
Author Organization [facility] Address [address] [place] [address] Care Team Providers Care Contestant Coordinator Name Role Phone Latrell Mckeon MD Primary Care Provider [phone] Siomara Fitzgerald DO Unavailable [phone] Latrell Mckeon MD Unavailable Sugar Arenas FUR DESIGNER Unavailable [phone] Encounter Details Date Type Department Care [...] How often do you attend chur or sabianism services? Patient declined 02/02/2024 Do you belong [...] Patient Health Questionnaire-2 Score 0 08/11/2023 [facility] Occupat ional [facility] - Occupational Stress Questionnaire Answer [...] time in the past 12 m [facility], were you homeless or living in a [...] Office Visit [facility] [address] [place] [address] Latrell Mckeon MD [address] [place] [address] documented as of this encounter Procedures Procedure [...] QTC Calculation(Bazett) : 423 ms Calculated P Sidney : 32 degrees Calculated R Sidney : 14 degrees Calculated T Sidney : 54 degrees NORMAL SINUS RHYTHM NORMAL ECG Confirmed by MD HAKAN, HEBA ([id number]) on 07/29/2024 12:16:17 PM NAME : SHEY BOSS PID : [id number] : 1950 Gender : Female Race : ORD : [id number] Procedure Date : Jul 23 2024 12:08:10 Edit Date : Jul 29 2024 12:16:18 Diagnosis: NORMAL SINUS RHYTHM NORMAL ECG Confirmed by MD MCCLENDON HEBA ([id number]) on 07/29/2024 12:16:17 PM Test Reason : [...] QTC Calculation(Bazett) : 423 ms Calculated P Sidney : 32 degrees Calculated R Sidney : 14 degrees Calculated T Sidney : 54 degrees NORMAL SINUS RHYTHM NORMAL ECG Confirmed by MD MCCLENDON HEBA ([id number]) on 07/29/2024 12:16:17 PM NAME : SHEY BOSS PID : [id number] : 1950 Gender : Female Race : ORD : [id number] Procedure Date : Jul 23 2024 12:08:10 Edit Date : Jul 29 2024 12:16:18 Diagnosis: NORMAL SINUS RHYTHM NORMAL ECG Confirmed by MD MCCLENDON HEBA ([id number]) on 07/29/2024 12:16:17 PM Test Reason : Location : 119 : A17 A17 Overread By : MD MCCLENDON HEBA Edited By : MD MCCLENDON HEBA Referred By : LISS BOYD Acquired by : SADE AH Generic External Data Provider ECG ORDERABLES F inal Result [facility] documented in this encounter Visit Diagnoses Not on filedocumented in this encounter Care Teams Contestant Coordinator Relationship Specialty Start Date End Date Latrell Mckeon MD [address] [place] [address] PCP - General Family Medicine 08/05/23 Latrell Mckeon MD [address] [place] [address] PCP - ACO Reach 08/16/24 Siomara Fitzgerald DO [address] [place] [address] Referring Physician Neurology 05/30/24 Sugar Arenas, FABIANO [address] [place] [address] Bus And Trolley Inspecting Dispatcher Family Medicine 01/16/25 03/04/25 documented as of this encounter
--- OUTSIDE RECORDS SUMMARY | 2025-03-04 13:31 | XMS_ITS | Clinical Summary ---
Author Organization [facility] Healthcare Address [address] [place] [address] Care Team Providers Care Vp Of Product Name Role Phone Latrell Jack MD Primary Care Provider [phone] Siomara Fitzgerald DO Unavailable [phone] Latrell Jack MD Unavailable Sugar Arenas CONSTRUCTION SAFETY MANAGER Unavailable [phone] Allergies No known active allergies Medications [...] each day at the same time Active albuterol (2.5 MG/3ML) 0.083% nebulizer solutionIndication [...] mouth every 12 (twelve) hours if needed 025 Active acetaminophen (Tylenol) 500 MG tablet Take 500 mg by mouth every 6 (six) hours if needed for mild pain or moderate pain Take 2 tabs every 6 hours as needed for pain. 025 Active zonisamide (Zonegran) 50 MG capsule Take 100 mg by mouth Daily 025 Active Spiriva HandiHaler 18 MCG inhalation capsuleIndications :Chronic obstructive pulmonary disease, unspecified COPD type (HCC) PLACE 1 CAPSULE (18 MCG) INTO INHALER AND INHALE IN THE MORNING 30 capsule 11 025 Active donepezil (Aricept) 10 MG tabletIndications: Memory loss TAKE 1 TABLET BY MOUTH EVERYDAY AT BEDTIME 90 tablet 1 025 Active eszopiclone (Lunesta) 2 MG tablet Take 2 mg by mouth at bedtime 025 Active losartan (Cozaar) 100 MG tabletIndications: Essential hypertension, benign Take 1 tablet (100 mg) by mouth Daily 30 tablet 5 025 Active atorvastatin (Lipitor) 40 MG tabletIndications: Dyslipidemia TAKE 1 TABLET BY MOUTH AT BEDTIME 90 tablet 3 025 Active methocarbamol (Robaxin) 750 MG tabletIndications: Degenerative lumbar spinal stenosis TAKE 1 TABLET BY MOUTH 4 TIMES A DAY NEEDED FOR MUSCLE SPASMS 60 tablet 2 025 Active atorvastatin (Lipitor) 40 MG tabletIndications: Dyslipidemia Take 1 tablet (40 mg) by mouth at bedtime 90 tablet 3 024 2024 Discontinued baclofen (Lioresal) 10 MG tablet Take 5 [...] FOR SLEEP 90 tablet 025 2024 Discontinued methocarbamol (Robaxin) 750 MG tabletIndications: Degenerative lumbar spinal stenosis Take 1 tablet (750 mg) by mouth 4 (four) times a day as needed for muscle spasms 60 tablet 2 025 2024 Discontinued mirtazapine (Remeron) 7.5 MG [...] Encounters Date Type Department Care Team Description 03/04/2025 Patient Outreach [facility] [address] [place] [address] Sugar Arenas LSW 03/01/2025 Refill [facility] [address] [place] [phone] Latrell Jack MD Degenerative lumbar spinal stenosis 02/28/2025 Refill [facility] [address] [place] [address] Latrell Jack MD Dyslipidemia 02/27/2025 Results Follow-Up [facility] [address] [place] [address] Latrell Jack MD Bilateral screening mammogram 02/27/2025 Clinisync Result Encounter [facility] External Department Unsolicited Latrell Jack MD 02/26/2025 Abstract [facility] [address] [place] [address] Latrell Jack MD 02/24/2025 10:30 AM EDT Office Visit [facility] [address] [place] [address] Latrell Jack MD Essential hypertension, benign (Primary Dx); Chronic obstructive pulmonary disease, unspecified COPD type (HCC); Primary insomnia; Primary osteoarthritis of both knees; Breast cancer screening by mammogram; Former smoker 02/24/2025 Bamboo flowsheet [facility] [address] [place] [address] Latrell Jack MD 02/06/2025 Patient Outreach [facility] [place] [id number] [place] [address] Sugar Arenas, [facility] 02/04/2025 Telephone [facility] [address] [place] [address] Latrell Jack MD 01/15/2025 Patient Outreach [facility] [place] [address] [place] [address] [phone] Sugar Arenas, [facility] 01/07/2025 Patient Outreach [facility] [place] [address] [place] [address] Sugar Arenas, [facility] 12/30/2024 Patient Outreach [facility] [place] [address] [place] [address] Sugar Arenas, [facility] 12/23/2024 [facility] [address] [place] [address] Sugar Arenas, CONSTRUCTION SAFETY MANAGER 12/17/2024 [facility] [address] [place] [address] Mikala Cueto LPN 12/16/2024 Orders Only [facility] [address] [place] [address] Latrell Jack MD 12/13/2024 Orders Only [facility] [address] [place] [address] Latrell Jack MD 12/12/2024 Clinisync Result Encounter [facility] External Department Unsolicited Provider, Generic External Data 12/12/2024 Orders Only [facility] [address] [place] [address] Will Woodson NP 12/04/2024 1:30 PM EDT Office Visit [facility] [address] [place] [address] Latrell Jack MD Degenerative lumbar spinal stenosis (Primary Dx); Chronic obstructive pulmonary disease, unspecified COPD type (HCC) 12/04/2024 Abstract [facility] [address] [place] [address] Latrell Jack MD 12/03/2024 Travel 12/03/2024 Patient Outreach [facility] [address] [place] [address] Tomasa Coon MA from Last 3 Months Immunizations Immunization Administration Dates Next Due Pneumococcal Conjugate PCV 13 11/25/2021 Family History Medical History Relation Name Comments Cancer Father Diabetes Father's Brother Alzheimer's disease Father's Sister Katty Hoff Alzheimer's disease Mother Karli Patten Arthritis Mother Karli Patten Heart attack Mother Karli Mendeznell Parkinsonism Sibling Relation Name Status Comments Father [...] How often do you attend chur or spiritism services? Patient declined 02/02/2024 Do you belong to any clubs o r organizations such as latter day groups, unions, fraternal or athletic groups, or [...] Recorded Patient Health Questionnaire-2 Score 0 08/27/2024 [facility] of Occupat ional Health - Occupational Stress [...] any time in the past 12 m [facility], were you homeless or living in [...] Office Visit [facility] [address] [place] [address] Latrell Jack MD [address] [place] [address] Health Maintenance Due Date Last Done Comments CT Colonography 1950 FIT-DNA 1950 FIT 1950 FOBT 1950 Lung Cancer Screening Shared Decision Making 1950 Sigmoidoscopy 1950 Influenza Vaccine (#1) 2025 , 05/03/2022, 04/12/2021, Additional history exists Mammogram 02/27/2026 02/27/2025, 082 07/2024, 11/28/2023, Additional history exists Colonoscopy 10/12/2033 10/13/2023, 10/13/2023 Colorectal Cancer Screening 10/12/2033 Pneumococcal Vaccine: 65+ Years Completed 11/25/2021, 05/16/2019, 01/31/2018 Procedures Procedure Name Priority Date/Time Associated Diagnosis Comments BI MAMMOGRAM SCREENING BILATERAL Routine 02/27/2025 2:18 PM EDT Breast cancer screening by mammogram MM TOMOSYNTHESIS SCREENING BI 02/27/2025 2:07 PM EDT SCANNED LABS Routine 12/16/2024 2:53 PM EDT SCANNED LABS Routine 12/16/2024 1:12 PM EDT SCANNED LABS Routine 12/13/2024 10:13 AM EDT XR HIP 2-3 VIEWS LEFT Routine 12/12/2024 11:07 AM EDT XR HIP LT MIN 2V 12/12/2024 10:3 4 AM EDT from Last 3 Months Results * Bilateral screening mammogram (02/27/2025 2:18 PM EDT) Latrell Jack MD IMG [place] [address], [place] * MM TOMOSYNTHESIS SCREENING BI (02/27/2025 2:07 PM EDT) Anatomical Region Laterality Modality Other 02/27/2025 2:07 PM EDT Narrative 02/27/2025 2:07 [place] [address] Mammography Report Signed Patient: SHEY BOSS MR#: [id number] : 1950 Acct:[id number] Age/Sex: 74 / F ADM Date: 02/27/25 Loc: MAMMO Attending Dr: Latrell Jack M.D. Ordering Physician: Latrell Jack M.D. Results: Date of Service: 02/27/25 Follow Up: Procedure(s): MM tomosynthesis screening BI Accession Number(s): [id number] cc: Latrell Jack M.D. Patient Name: SHEY BOSS MR#: [id number] : 1950 Exam Date: 02/27/2025 Ordering Doctor: DR LATRELL JACK . RADIOLOGY REPORT PROCEDURE: MM TOMOSYNTHESIS SCREENING BI COMPARISON: MM TOMOSYNTHESIS SCREENING BI, 11/28/2023. MG MAMM SCREEN 3D RONALD CAD, 11/24/2022. MG MAMM SCREEN 3D RONALD CAD, 11/11/2021. MG MAMM SCREEN 3D RONALD CAD, 11/05/2020. INDICATIONS: Screenng Calculator Name NCI Breast Cancer Risk Assessment Tool 5 Year Breast Cancer Risk 2.00% Lifetime Breast Cancer Risk 4.80% Personal Breast Cancer No Personal Ovarian Cancer No Treatments None Family Cancers Father with lung cancer at age 45. LOCATION: [facility] BREAST COMPOSITION: The breasts are almost entirely fatty. FINDINGS: RIGHT BREAST: No significant suspicious finding. Benign-appearing calcifications are present. Benign appearing lymph nodes are present. LEFT BREAST: No significant suspicious finding. Benign-appearing lymph nodes are present along with chest wall. DIAGNOSTIC CATEGORY 2--BENIGN FINDING. NO CHANGE FROM COMPARISON. RECOMMENDATIONS: ROUTINE MAMMOGRAM AND CLINICAL EVALUATION IN 12 MONTHS. Dictated by: Pa Villa MD on 02/27/2025 at 14:04 Approved by: Pa Villa MD on 02/27/2025 at 14:07 Dictated By: Pa Villa M.D. Signed By: 02/27/25 1407 DD/ 140 TD/TT: Financial Coordinator: Procedure Note Radiology, Radiologist, MD - 02/27/2025 [place] [address] Mammography Report Signed Patient: SHEY BOSS LMR#: [id number] : 1950cct:[id number] Age/Sex: 74 / FADM Date: 02/27/25 Loc: MAMMO Attending Dr: Latrell Jack M.D. Ordering Physician: Latrell Jack M.D.Results: Date of Service: 02/27/25Follow Up: Procedure(s): MM tomosynthesis screening BI Accession Number(s): [id number] cc: Latrell Jack M.D. Patient Name: SHEY BOSS MR#: [id number] : 1950 Exam Date: 02/27/2025 Ordering Doctor: DR LATRELL JACK . RADIOLOGY REPORT PROCEDURE: MM TOMOSYNTHESIS SCREENING BI COMPARISON: MM TOMOSYNTHESIS SCREENING BI, 11/28/2023. MG MAMM OFTTPO1B RONALD CAD, 11/24/2022. MG MAMM SCREEN 3D RONALD CAD, 11/11/2021. MG MAMM [id number] RONALD CAD, 11/05/2020. INDICATIONS: Screenng Calculator Name NCI Breast Cancer Risk Assessment Tool 5 Year Breast Cancer Risk 2.00% Lifetime Breast Cancer Risk 4.80% Personal Breast Cancer No Personal Ovarian Cancer No Treatments None Family Cancers Father with lung cancer at age 45. LOCATION: [facility] BREAST COMPOSITION: The breasts are almost entirely fatty. FINDINGS: RIGHT BREAST: No significant suspicious finding. Benign-appearing calcifications are present. Benign appearing lymph nodes are present. LEFT BREAST: No significant suspicious finding. Benign-appearing lymphnodes are present along with chest wall. DIAGNOSTIC CATEGORY 2--BENIGN FINDING. NO CHANGE FROM COMPARISON. RECOMMENDATIONS: ROUTINE MAMMOGRAM AND CLINICAL EVALUATION IN 12 MONTHS. Dictated by: Pa Villa MD on 02/27/2025 at 14:04 Approved by: Pa Villa MD on 02/27/2025 at 14:07 Dictated By: Pa Villa M.D. Signed By:02/27/25 1407 DD/ 140 TD/TT: Financial Coordinator: Latrell Jack MD [facility] Final Result * SCANNED LABS (12/16/2024 2:53 PM EDT) Only the most recent of3 resultswithin the time period is included. Latrell Jack MD LAB CHG PERFORMABLES Final Resul t * XR HIP 2-3 VIEWS LEFT (12/12/2024 11:07 AM EDT) Anatomical Region Laterality Modality Radiographic Lani ging Will Woodson PROFILE SAW SETUP OPERATOR IMG XR PROCEDURES Final Result * XR HIP LT MIN 2V (12/12/2024 10:34 AM EDT) Anatomical Region Laterality Modality Other 12/12/2024 10:3 4 AM EDT Narrative 12/12/2024 10:37 AM EDT The [address] [address] XRay Report Signed Patient: SHEY BOSS MR#: [id number] : 1950 Acct:[id number] Age/Sex: 74 / F ADM Date: 12/12/24 Loc: RAD Attending Dr: Will Woodson NP Ordering Physician: Will Woodson NP Date of Service: 12/12/24 Procedure(s): XR hip LT min 2V Accession Number(s): [id number] cc: Will Woodson NP; Latrell Jack M.D. The [address] [address] Patient Name: SHEY BOSS MRN: [id number] date: 1950 Sex: F Assigned Patient Location: Current Patient Location: Accession/Order Number: [id number] Exam Date: 12/12/2024 10:32 Report Date: 12/12/2024 [...] Narvaez M.D. 12/12/2024 10:34 AM Dictation Location: [place] [address] Electronically authenticated by: [id number] Y Date: 12/12/2024 10:34 Dictated By: Juliane Narvaez M.D. Signed By: 12/12/24 1037 DD/ 1034 TD/TT: Financial Coordinator: Procedure Note Radiology, Radiologist, - 12/12/2024 [place] [address] XRay Report Signed Patient: SHEY BOSS LMR#: [id number] : 1950cct:[id number] Age/Sex: 74 / FADM Date: 12/12/24 Loc: RAD Attending Dr: Will Woodson NP Ordering Physician: Will Woodson NP Date of Service: 12/12/24 Procedure(s): XR hip LT min 2V Accession Number(s): [id number] cc: Will Woodson NP; Latrell Jack M.D. The [place] [id number] Patient Name: SHEY BOSS MRN: [id number] date: 1950 Sex: F Assigned Patient Location: PM Current Patient Location: Accession/Order Number: [id number] Exam Date: 12/12/2024 10:32 Report Date: 12/12/2024 [...] Narvaez M.D. 12/12/2024 10:34 AM Dictation Location: [place] [address] Electronically authenticated by: [id number] Y Date: 0:34 Dictated By: Juliane Narvaez M.D. Signed By:12/12/24 1037 DD/ 1034 TD/TT: Financial Coordinator: Generic External Data Provider [facility] Final Result from Last 3 Months [place] [address] [employer] [place] [address] Care Teams Vp Of Product Relationship Specialty Start Date End Date Latrell Jack MD [address] [place] [address] PCP - General Family Medicine 08/05/23 Latrell Jack MD [address] [place] [address] PCP - ACO Reach 08/16/24 Siomara Fitzgerald DO [address] [place] [address] Referring Physician Neurology 05/30/24 Sugar Arenas, FABIANO [address] [place], [place] [address] Airborne Operations Superintendent Family Medicine 01/16/25 03/04/25
--- OUTSIDE RECORDS SUMMARY | 2025-03-04 13:31 | XMS_ITS | Encounter Summary ---
Author Organization [facility] Address [address] [place] [address] Care Team Providers Care Credit Consultant Name Role Phone Latrell Mckeon MD Primary Care Provider [phone] Siomara Fitzgerald DO Unavailable [phone] Latrell Mckeon MD Unavailable Sugar Arenas BURNER TECHNICIAN Unavailable [phone] Encounter Details Date Type Department Care Team (Late st Contact Info) Description 12/13/2024 Orders Only [facility] [address] [place] [address] Latrell Mckeon MD [address] [place] [address] Social History Tobacco Use Types Packs/Day Years [...] any clubs o r organizations such as latter-day groups, unions, fraternal or athletic groups, or [...] Recorded Patient Health Questionnaire-2 Score 0 08/27/2024 [facility] of Occupat ional Health - [...] any time in the past 12 m [facility], were you homeless or living in a fpc (including now)? No 02/02/2024 Comments Unknown Sex [...] Office Visit [facility] [address] [place] [address] Latrell Mckeon MD [address] [place] [address] documented as of this encounter Procedures Procedure [...] documented as of this encounter Care Teams Credit Consultant Relationship Specialty Start Date End Date Latrell Mckeon MD [address] [place] [address] PCP - General Family Medicine 08/05/23 Latrell Mckeon MD [address] [facility] [place] [address] PCP - ACO Reach 08/16/24 Siomara Fitzgerald DO [address] [place] [address] Referring Physician Neurology 05/30/24 Sugar Arenas, FABIANO [address] [place] [address] Kick Boxer Family Medicine 01/16/25 03/04/25 documented as of this encounter
--- OUTSIDE RECORDS SUMMARY | 2025-03-04 13:31 | XMS_ITS | Encounter Summary ---
Author Organization [facility] Address [address] [place] [address] Care Team Providers Care Orchestra Conductor Name Role Phone Latrell Mckeon MD Primary Care Provider [phone] Diomedes Matute DO Unavailable [phone] Latrell Mckeon MD Unavailable Sugar Arenas MOTHER TESTER Unavailable [phone] Encounter Details Date Type Department Care [...] week 02/02/2024 How often do you attend [facility] or pentecostalism services? Patient declined 02/02/2024 Do you belong to any clubs o r organizations such as mormon groups, unions, fraternal or athletic groups, or [...] Recorded Patient Health Questionnaire-2 Score 0 08/11/2023 [facility] Occupat ional [facility] - Occupational Stress Questionnaire Answer Date [...] Office Visit [facility] [address] [place] [address] Latrell Mckeon MD [address] [place] [address] documented as of this encounter Procedures Procedure Name Priority Date/Time Associated Diagnosis Comments MR HEAD/BRAIN WO CON 03/15/2024 12:12 PM EDT documented in this encounter Results * MR HEAD/BRAIN WO CON (03/15/2024 12:12 PM EDT) Anatomical Region Laterality Modality Other 03/15/2024 12:1 2 PM EDT Narrative 03/15/2024 12:15 [place] [address] Magnetic Resonance Report Signed Patient: SHEY BOSS MR#: [id number] : 1950 Acct:[id number] Age/Sex: 73 / F ADM Date: 03/15/24 Loc: MRI Attending Dr: Diomedes Matute D.O. Ordering Physician: Diomedes Matute D.O. Date of Service: 03/15/24 Procedure(s): MR head/brain wo con Accession Number(s): [id number] cc: Diomedes Matute D.O.; Latrell Mckeon M.D. The [place] [address] Patient Name: SHEY BOSS MRN: [facility]:[id number] date: 1950 Sex: F Assigned Patient Location: MRI Current Patient Location: MRI Accession/Order Number: [id number] Exam Date: 03/15/2024 09:50 Report Date: 03/15/2024 [...] Signed By: 03/15/24 1215 DD/ 1212 TD/TT: Hoseman: Procedure Note Radiology, Radiologist, MD - 03/15/2024 [place] [address] Magnetic Resonance Report Signed Patient: SHEY BOSS LMR#: [id number] : 1950cct:[id number] Age/Sex: 73 / FADM Date: 03/15/24 Loc: MRI Attending Dr: Diomedes Matute D.O. Ordering Physician: Diomedes Matute D.O. Date of Service: 03/15/24 Procedure(s): MR head/brain wo con Accession Number(s): [id number] cc: Diomedes Matute D.O.; Latrell Mckeon M.D. [place] [address] Patient Name: SHEY BOSS MRN: [facility]:[id number] date: 1950 Sex: F Assigned Patient Location: MRI Current Patient Location: MRI Accession/Order Number: [id number] Exam Date: 03/15/2024 09:50 Report Date: 03/15/2024 [...] M.D. Signed By:03/15/24 1215 DD/ 1212 TD/TT: Hoseman: Diomedes Matute DO [facility] Final Result documented in this encounter Visit Diagnoses Not on filedocumented in this encounter Care Teams Orchestra Conductor Relationship Specialty Start Date End Date Latrell Mckeon MD [address] [place] [address] PCP - General Family Medicine 08/05/23 Latrell Mckeon MD [address] [place] [address] PCP - ACO Reach 08/16/24 Diomedes Matute DO [address] [place] [address] Referring Physician Neurology 05/30/24 Sugar Arenas, FABIANO [address] [place] [address] Supervisor Fabrication And Assembly Family Medicine 01/16/25 03/04/25 documented as of this encounter
--- OUTSIDE RECORDS SUMMARY | 2025-03-04 13:31 | XMS_ITS | Encounter Summary ---
Author Organization [facility] Address [address] [place] [address] Care Team Providers Care Sap Basis Administrator Name Role Phone Latrell Mckeon MD Primary Care Provider [phone] Siomara Fitzgerald DO Unavailable [phone] Latrell Mckeon MD Unavailable Sugar Arenas SHEARING SHED WORKER Unavailable [phone] Encounter Details Date Type Department Care Team (Late st Contact Info) Description 12/16/2024 Orders Only [facility] [address] [place] [address] Latrell Mckeon MD [address] [place] [address] Social History Tobacco Use Types Packs/Day Years [...] often do you attend chur ch or episcopal services? Patient declined 02/02/2024 Do you belong to any clubs o r organizations such as confucianism groups, unions, fraternal or athletic groups, or [...] Recorded Patient Health Questionnaire-2 Score 0 08/27/2024 [facility] of Occupat ional Health - [...] any [facility] in the [facility] were you homeless or living in [...] Office Visit [facility] [address] [place] [address] Latrell Mckeon MD [address] [place] [address] documented as of this encounter Procedures Procedure [...] documented as of this encounter Care Teams Sap Basis Administrator Relationship Specialty Start Date End Date Latrell Mckeon MD [address] [place] [address] PCP - General Family Medicine 08/05/23 Latrell Mckeon MD [address] [place] [address] PCP - ACO Reach 08/16/24 Siomara Fitzgerald DO [address] [place] [address] Referring Physician Neurology 05/30/24 Sugar Arenas, FABIANO [address] [place] [address] Obstetrics And Gynecology Professor Family Medicine 01/16/25 03/04/25 documented as of this encounter
--- OUTSIDE RECORDS SUMMARY | 2025-03-04 13:31 | XMS_ITS | Encounter Summary ---
Author Organization [facility] Address [address] [place] [address] Care Team Providers Care Bibliographic Services Specialist Name Role Phone Latrell Mckeon MD Primary Care Provider [phone] Siomara Fitzgerald DO Unavailable [phone] Latrell Mckeon MD Unavailable Sugar Arenas SUPERVISOR FEED MILL Unavailable [phone] Encounter Details Date Type Department Care Team (Late Contact Info) Description 08/13/2023 Orders Only [facility] [address] [place] [address] Latrell Mckeon MD [address] [place] [address] Social History Tobacco Use Types Packs/Day Years [...] 04/29/2025 1:15 PM EDT Office Visit [facility] [address] [place] [address] Latrell Mckeon MD [address] [place] [address] documented as of this encounter Visit Diagnoses Not on filedocumented in this encounter Care Teams Bibliographic Services Specialist Relationship Specialty Start Date End Date Latrell Mckeon MD [address] [place] [address] PCP - General Family Medicine 08/05/23 Latrell Mckeon MD [address] [place] [address] PCP - ACO Reach 08/16/24 Siomara Fitzgerald DO [address] [place] [address] Referring Physician Neurology 05/30/24 Sugar Arenas, FABIANO [address] [place] [place], [place] [address] Tie Hacker Family Medicine 01/16/25 03/04/25 documented as of this encounter
--- OUTSIDE RECORDS SUMMARY | 2025-03-04 13:31 | XMS_ITS | Encounter Summary ---
Author Organization [facility] Address [address] [place] [address] Care Team Providers Care Director Consumer Affairs Name Role Phone Latrell Mckeon MD Primary Care Provider [phone] Siomara Fitzgerald DO Unavailable [phone] Latrell Mckeon MD Unavailable Sugar Arenas AFFILIATE MARKETING SPECIALIST Unavailable [phone] Reason for Visit * Reason Comments Med Refill Encounter Details Date Type Department Care Team (Late st Contact Info) Description 03/01/2025 [facility] [address] [place] [address] Latrell Mckeon MD [address] [place] [address] Degenerative lumbar spinal stenosis Social History Tobacco Use Types Packs/Day Years [...] often do you attend chur ch or gnosticist services? Patient declined 02/02/2024 Do you belong [...] 0 08/27/2024 [facility] of Occupat ional [facility] - Occupational Stress Questionnaire Answer Date [...] any time in the past 12 m [facility], were you homeless or living in a halfway (including now)? No 02/02/2024 Comments Unknown Sex and Gender Information Value Date Recorded Sex Assigned at Not on file Legal Sex Female 7:08 PM EDT Gender Identity Not on file Sexual Orientation Not on file documented as of this encounter Miscellaneous Notes * Telephone Encounter - GEO DICK - 03/03/2025 12:12 PM EDT MEDICATION SENT TO [place] documented in this encounter Plan of Treatment Upcoming Encounters Date Type Department Care Team (Late st Contact Info) Description 04/29/2025 1:15 PM EDT Office Visit [facility] [address] [place] [address] Latrell Mckeon MD [address] [place] [address] documented as of this encounter Visit Diagnoses Diagnosis Degenerative lumbar spinal stenosis Spinal stenosis of lumbar region documented in this encounter Additional Health Concerns Assessment Noted Time PHQ-9 Depression Total Score: 4 08/27/19 25 10:00 AM EST documented as of this encounter Care Teams Director Consumer Affairs Relationship Specialty Start Date End Date Latrell Mckeon MD [address] [place] [address] PCP - General Family Medicine 08/05/23 Latrell Mckeon MD [address] [facility] [place] [address] PCP - ACO Reach 08/16/24 Siomara Fitzgerald DO [address] [place], [place] [address] Referring Physician Neurology 05/30/24 Sugar Arenas, FABIANO [address] [place] [address] C Programmer Family Medicine 01/16/25 03/04/25 documented as of this encounter
--- OUTSIDE RECORDS SUMMARY | 2025-03-04 13:31 | XMS_ITS | Encounter Summary ---
Author Organization [facility] Address [address] [place] [address] Care Team Providers Care Gas Torch Solderer Name Role Phone Latrell Mckeon MD Primary Care Provider [phone] Siomara Fitzgerald DO Unavailable [phone] Latrell Mckeon MD Unavailable Sugar Arenas DRIVE IN TELLER Unavailable [phone] Encounter Details Date Type Department Care Team (Late st Contact Info) Description 02/26/2025 Abstract [facility] [address] [place] [address] Latrell Mckeon MD [address] [place] [address] Social History Tobacco Use Types Packs/Day Years [...] any time in the past 12 m [facility], were you homeless or living in a snf (including now)? No 02/02/2024 Comments Unknown Sex and Gender Information Value Date Recorded Sex Assigned at Not on file Legal Sex Female 7:08 PM EDT Gender Identity Not on file Sexual Orientation Not on file documented as of this encounter Plan of Treatment Upcoming Encounters Date Type Department Care Team (Late st Contact Info) Description 04/29/2025 1:15 PM EDT [facility] [address] [place] [address] Latrell Mckeon MD [address] [place] [address] documented as of this encounter Visit Diagnoses Not on filedocumented in this encounter Additional Health Concerns Assessment Noted Time PHQ-9 Depression Total Score: 4 08/27/19 25 10:00 AM EST documented as of this encounter Care Teams Gas Torch Solderer Relationship Specialty Start Date End Date Latrell Mckeon MD [address] [place] [address] PCP - General Family Medicine 08/05/23 Latrell Mckeon MD [address] [place] [address] PCP - ACO Reach 08/16/24 Siomara Fitzgerald DO [address] [place] [address] Referring Physician Neurology 05/30/24 Sugar Arenas, FABIANO [address] [place], [place] [address] Sales Driver Family Medicine 01/16/25 03/04/25 documented as of this encounter
--- OUTSIDE RECORDS SUMMARY | 2025-03-04 13:31 | XMS_ITS | Encounter Summary ---
Author Organization [facility] Address [address] [place] [address] Care Team Providers Care Manager Secondary Name Role Phone Latrell Mckeon MD Primary Care Provider [phone] Siomara Fitzgerald DO Unavailable [phone] Latrell Mckeon MD Unavailable Sugar Arenas FATBACK TRIMMER Unavailable [phone] Encounter Details Date Type Department Care Team (Late st Contact Info) Description 11/28/2023 Clinisync Result Encounter [facility] External Department Unsolicited Latrell Mckeon MD [address] [place] [address] Social History Tobacco Use Types [...] Office Visit [facility] [address] [place] [address] Latrell Mckeon MD [address] [place] [address] documented as of this encounter Procedures Procedure Name Priority Date/Time Associated Diagnosis Comments MM TOMOSYNTHESIS SCREENING BI 11/28/2023 3:15 PM EDT documented in this encounter Results * MM TOMOSYNTHESIS SCREENING BI (11/28/2023 3:15 PM EDT) Anatomical Region Laterality Modality Other 11/28/2023 3:15 PM EDT Narrative 11/28/2023 3:16 [place] [address] Mammography Report Signed Patient: SHEY BOSS MR#: [id number] : 1950 Acct:[id number] Age/Sex: 73 / F ADM Date: 11/28/23 Loc: MAMMO Attending Dr: Latrell Mckeon M.D. Ordering Physician: Latrell Mckeon M.D. Results: Date of Service: 11/28/23 Follow Up: Procedure(s): MM tomosynthesis screening BI Accession Number(s): [id number] cc: Latrell Mckeon M.D. Patient Name: SHEY BOSS MR#: [id number] : 1950 Exam Date: 11/28/2023 Ordering Doctor: [...] at age 46. LOCATION: [facility] BREAST COMPOSITION: The breasts are almost entirely [...] Signed By: 11/28/23 1516 DD/ 1515 TD/TT: Giving Officer: Procedure Note Radiology, Radiologist, MD - 11/28/2023 [place] [address] Mammography Report Signed Patient: SHEY BOSS LMR#: [id number] : 1950cct:[id number] Age/Sex: 73 / FADM Date: 11/28/23 Loc: MAMMO Attending Dr: Latrell Mckeon M.D. Ordering Physician: Latrell Mckeon M.D.Results: Date of Service: 11/28/23Follow Up: Procedure(s): MM tomosynthesis screening BI Accession Number(s): [id number] cc: Latrell Mckeon M.D. Patient Name: SHEY BOSS MR#: [id number] : 1950 Exam Date: 11/28/2023 Ordering Doctor: [...] at age 46. LOCATION: [facility] BREAST COMPOSITION: The breasts are almost entirely [...] M.D. Signed By:11/28/23 1516 DD/ 1515 TD/TT: Giving Officer: Latrell Mckeon MD [facility] Final Result documented in this encounter Visit Diagnoses Not on filedocumented in this encounter Care Teams Manager Secondary Relationship Specialty Start Date End Date Latrell Mckeon MD [address] [place] [address] PCP - General Family Medicine 08/05/23 Latrell Mckeon MD [address] [place] [address] PCP - ACO Reach 08/16/24 Siomara Fitzgerald DO [address] [place] [address] Referring Physician Neurology 05/30/24 Sugar Arenas LSW [address] [place], [place] [address] Densitometer Reader Family Medicine 01/16/25 03/04/25 documented as of this encounter
--- OUTSIDE RECORDS SUMMARY | 2025-03-04 13:31 | XMS_ITS | Clinical Summary ---
Author Organization [facility] Address [address] [place] [address] Care Team Providers Care Cook Seafood Name Role Phone Katie Hairston MD Unavailable [phone] Latrell Mckeon MD Primary Care Provider [phone] Allergies No known active allergies Medications Vitamin [...] is lower risk 9 04/29/2024 Data from: https://www.neighborhoodatlas.medicine.[facility].edu/. Last address used for calculation [address] 04/29/2024 Comments No Sex and Gender Information [...] Completed 03/27/2023 Medical Devices Implanted Type Area Water Resource Project Manager Device Identifier Shelf Expiration Date Model / Serial / Lot [place] Thk1.65mm Ptfe 4x.5in Cardiovascular Sterile - [id number] Implanted:Qty: 1 on 07/24/2024 at [facility] Implant N/A: Abdomen BARD PERIPHERAL VASCULAR 01/04/2029 [id number] / / [id number] Procedures Procedure Name Priority Date/Time Associated Diagnosis Comments BASIC METABOLIC PANEL Routine 07/26/2024 1:13 AM EST from Last 3 Months or Most Recently Relevant to Health Maintenance Results * (ABNORMAL) BASIC METABOLIC PANEL (07/26/2024 1:13 AM EST) [facility] Glucose 112(H) 74 - 99 mg/dL 07/26/2024 2:33 AM [facility] Comment: The [place] Diabetes Association (ADA) provides guidance for cutoff [...] Standards of Medical Care in Diabetes 2016, [place] Diabetes Association. Diabetes Care. 2016.39(Suppl 1). BUN 10 7 - 21 mg/dL 07/26/2024 2:33 AM [facility] Creatinine 0.92 0.58 - 0.96 mg/dL 07/26/2024 2:33 AM [facility] Sodium 143 136 - 144 mmol/L 07/26/2024 2:33 AM [facility] Potassium 3.4(L) 3.7 - 5.1 mmol/L 07/26/2024 2:33 AM [facility] Chloride 107 98 - 107 mmol/L 07/26/2024 2:33 AM [facility] CO2 24 22 - 30 mmol/L 07/26/2024 2:33 AM [facility] Anion Gap 12 8 - 15 mmol/L 07/26/2024 2:33 AM [facility] Calcium, Total 9.0 8.5 - 10.2 mg/dL 07/26/2024 2:33 AM [facility] Estimated Glomerular Filtration Rate 66 >=60 mL/min/1.7 3m 07/26/2024 2:33 AM [facility] Comment:Estimated Glomerular Filtration Rate (eGFR) is [...] EST us Yan [facility] LABORAT[facility] Final Result [facility] [address] [facility] [address] [place] [address], [place] from Last 3 Months or Most Recently Relevant to Health Maintenance [facility] MEDICARE ILROAD Care Teams Cook Seafood Relationship Specialty Start Date End Date Latrell Mckeon MD [address] [place] [address] PCP - General Family Medicine 07/01/24 Katie Hairston MD [address] [place] [address] Internal Medicine 04/02/24
--- OUTSIDE RECORDS SUMMARY | 2025-03-04 13:31 | XMS_ITS | Encounter Summary ---
Author Organization [facility] Address [address] [place] [address] Care Team Providers Care Take Down Inspector Name Role Phone Sherman Jack MD Primary Care Provider [phone] Siomara Fitzgerald DO Unavailable [phone] Sherman Jack MD Unavailable Sugar Arenas CHIEF ESTIMATOR Unavailable [phone] Encounter Details Date Type Department Care Team (Late st Contact Info) Description 02/27/2025 Clinisync Result Encounter [facility] External Department Unsolicited Sherman Jack MD [address] [place] [address] Social History Tobacco Use Types Packs/Day Years [...] week 02/02/2024 How often do you attend [facility] or holiness services? Patient declined 02/02/2024 Do you belong to any clubs o r organizations such as faith groups, unions, fraternal or athletic groups, or [...] Recorded Patient Health Questionnaire-2 Score 0 08/27/2024 [facility] of Occupat ional Health - Occupational Stress [...] time in the past 12 m [facility], were you homeless or living in a usp (including now)? No 02/02/2024 Comments Unknown Sex [...] Office Visit [facility] [address] [place] [address] Sherman Jack MD [address] [place] [address] documented as of this encounter Procedures Procedure Name Priority Date/Time Associated Diagnosis Comments MM TOMOSYNTHESIS SCREENING BI 02/27/2025 2:07 PM EDT documented in this encounter Results * MM TOMOSYNTHESIS SCREENING BI (02/27/2025 2:07 PM EDT) Anatomical Region Laterality Modality Other 02/27/2025 2:07 PM EDT Narrative 02/27/2025 2:07 [place] [address] Mammography Report Signed Patient: SHEY BOSS MR#: [id number] : 1950 Acct:[id number] Age/Sex: 74 / F ADM Date: 02/27/25 Loc: MAMMO Attending Dr: Sherman Jack M.D. Ordering Physician: Sherman Jack M.D. Results: Date of Service: 02/27/25 Follow Up: Procedure(s): MM tomosynthesis screening BI Accession Number(s): [id number] cc: Sherman Jack M.D. Patient Name: SHEY BOSS MR#: [id number] : 1950 Exam Date: 02/27/2025 Ordering Doctor: DR SHERMAN JACK . RADIOLOGY REPORT PROCEDURE: MM TOMOSYNTHESIS [...] lung cancer at age 46. LOCATION: [facility] BREAST COMPOSITION: The breasts are almost entirely [...] Villa M.D. Signed By: 02/27/25 1407 DD/ 1407 TD/TT: Pick Up Worker: Procedure Note Radiology, Radiologist, MD - 02/27/2025 [place] [address] Mammography Report Signed Patient: SHEY BOSS LMR#: [id number] : 1950cct:[id number] Age/Sex: 74 / FADM Date: 02/27/25 Loc: MAMMO Attending Dr: Sherman Jack M.D. Ordering Physician: Sherman Jack M.D.Results: Date of Service: 02/27/25Follow Up: Procedure(s): MM tomosynthesis screening BI Accession Number(s): [id number] cc: Sherman Jack M.D. Patient Name: SHEY BOSS MR#: [id number] : 1950 Exam Date: 02/27/2025 Ordering Doctor: DR SHERMAN JACK . RADIOLOGY REPORT PROCEDURE: MM TOMOSYNTHESIS SCREENING BI COMPARISON: MM TOMOSYNTHESIS SCREENING BI, 11/28/2023. MG MAMM [id number] [place]ON[place]D CAD, 11/24/2022. MG MAMM SCREEN 3D RONALD CAD, 11/11/2021. MG MAMM [id number] RONALD CAD, 11/05/2020. INDICATIONS: Screenng Calculator Name NCI Breast Cancer Risk Assessment Tool 5 Year Breast Cancer Risk 2.00% Lifetime Breast Cancer Risk 4.80% Personal Breast Cancer No Personal Ovarian Cancer No Treatments None Family Cancers Father with lung cancer at age 45. LOCATION: [facility] BREAST COMPOSITION: The breasts are almost entirely [...] MD on 02/27/2025 at 14:07 Dictated By: aP Villa M.D. Signed By:02/27/25 1407 DD/ 1407 TD/TT: Pick Up Worker: Sherman Jack MD [facility] Final Result documented in this encounter Visit Diagnoses Not on filedocumented in this encounter Additional Health Concerns Assessment Noted Time PHQ-9 Depression Total Score: 4 08/27/19 25 10:00 AM EST documented as of this encounter Care Teams Take Down Inspector Relationship Specialty Start Date End Date Sherman Jack MD [address] [place] [address] PCP - General Family Medicine 08/05/23 Sherman Jack MD [address] [place] [address] PCP - ACO Reach 08/16/24 Siomara Fitzgerald DO [address] [place], [place] [address] Referring Physician Neurology 05/30/24 Sugar Arenas, FABIANO [address] [place] [address] Corduroy Cutter Operator Family Medicine 01/16/25 03/04/25 documented as of this encounter
--- OUTSIDE RECORDS SUMMARY | 2025-03-04 13:31 | XMS_ITS | Encounter Summary ---
Author Organization [facility] Address [address] [place] [address] Care Team Providers Care Flatwork Finisher Hand Name Role Phone Latrell Mckeon MD Primary Care Provider [phone] Siomara Fitzgerald DO Unavailable [phone] Latrell Mckeon MD Unavailable Sugar Arenas CONSUMER EXPERIENCE CONSULTANT Unavailable [phone] Encounter Details Date Type Department Care Team (Late st Contact Info) Description 03/04/2025 Patient Outreach [facility] [address] [place] [address] Sugar Arenas LSW [address] [place] [address] Social History Tobacco Use Types Packs/Day Years [...] often do you attend chur ch or taoism services? Patient declined 02/02/2024 Do you belong to any clubs o r organizations such as mosque groups, unions, fraternal or athletic groups, or [...] Recorded Patient Health Questionnaire-2 Score 0 08/27/2024 [facility] of Occupat ional [facility] - Occupational Stress Questionnaire Answer Date Recorded [...] in the past 12 m [facility], were you homeless or living in a penitentiary (including now)? No 02/02/2024 Comments Unknown Sex and Gender Information Value Date Recorded Sex Assigned at Not on file Legal Sex Female 7:08 PM EDT Gender Identity Not on file Sexual Orientation Not on file documented as of this encounter Progress Notes * FABIANO Wade - 03/04/2025 11:26 AM EDT <March 04, 2025, 11:26 - FABIANO Wade> Chart reviewed. Called pt for final monitoring call before PCP office leaves [facility]. Pt reports she'sdoing OK. Counseling is going well. Other household members will be going on vacation in April and this will be her first time home alone in a long time. She has counseling visit scheduled for the following week to check on how she handles this. She is sleeping better with Lunesta. She is appreciative of call and denies further needs. She is aware that CCM services will end and she is to call PCP office for any needs. documented in this encounter Plan of Treatment Upcoming Encounters Date Type Department Care Team (Late st Contact Info) Description 04/29/2025 1:15 PM EDT Office Visit [facility] [address] [place] [address] Latrell Mckeon MD [address] [place] [address] documented as of this encounter Visit Diagnoses Diagnosis Moderate episode of recurrent major depressive disorder (HCC)- Primary Essential (primary) hypertension Unspecified essential hypertension documented in this encounter Additional Health Concerns Assessment Noted Time PHQ-9 Depression Total Score: 4 08/27/19 25 10:00 AM EST documented as of this encounter Care Teams Flatwork Finisher Hand Relationship Specialty Start Date End Date Latrell Mckeon MD [address] [place] [address] PCP - General Family Medicine 08/05/23 Latrell Mckeon MD [address] [place] [address] PCP - ACO Reach 08/16/24 Siomara Fitzgerald DO [address] [place] [address] Referring Physician Neurology 05/30/24 Sugar Arenas, FABIANO [address] [place] [address] Phlebotomist Associate Family Medicine 01/16/25 03/04/25 documented as of this encounter
--- OUTSIDE RECORDS SUMMARY | 2025-03-04 13:31 | XMS_ITS ---
Author Organization [facility] Address [address] [place] [address] Care Team Providers Care Art Professor Name Role Phone Latrell Mckeon MD Primary Care Provider [phone] Siomara Fitzgerald DO Unavailable [phone] Latrell Mckeon MD Unavailable Sugar Arenas Unavailable [phone] Chronic Care Management (CCM) Status:Closed (Closed) Start date:01/16/2025 Enrollment date:01/16/2025 Enrollment reason:Self-enrolled End date:03/04/2025 Close reason:Patient graduated Overview Please assess for Care Management needs. 01/16/25, 10:09 AM - FABIANO Wade- Patient gives verbal consent to be enrolled in CCM Program and understands there could be a bill for this service. Pt attributed to ACO Reach Case Team Name Relationship Phone Sugar STONEW(Responsible Staff) [facility] [phone] Continued Care and Services Coordination
--- OUTSIDE RECORDS SUMMARY | 2025-03-04 13:31 | XMS_ITS | Encounter Summary ---
Author Organization [facility] Address [address] [place] [address] Care Team Providers Care Branch Credit Counselor Name Role Phone Latrell Mckeon MD Primary Care Provider [phone] Siomara Fitzgerald DO Unavailable [phone] Latrell Mckeon MD Unavailable Sugar Arenas RAILROAD WHEELS AND AXLES INSPECTOR Unavailable [phone] Reason for Visit * Reason Comments Med Refill Encounter Details Date Type Department Care Team (Late st Contact Info) Description [facility]/28[facility] [address] [place] [address] Latrell Mckeon MD [address] [place] [address] Dyslipidemia Social History Tobacco Use Types Packs/Day Years [...] often do you attend chur ch or mosque services? Patient declined 02/02/2024 Do you belong to any clubs o r organizations such as christian groups, unions, fraternal or athletic groups, or [...] any time in the past 12 m [facility], were you homeless or living in a intermediate (including now)? No 02/02/2024 Comments Unknown Sex and Gender Information Value Date Recorded Sex Assigned at Not on file Legal Sex Female 7:08 PM EDT Gender Identity Not on file Sexual Orientation Not on file documented as of this encounter Miscellaneous Notes * Telephone Encounter - GEO DICK - 02/28/2025 8:38 AM EDT MEDICATION SENT TO [place] documented in this encounter Plan of Treatment Upcoming Encounters Date Type Department Care Team (Late st Contact Info) Description 04/29/2025 1:15 PM EDT Office Visit [facility] [address] [place] [address] Latrell Mckeon MD [address] [place] [address] documented as of this encounter Visit Diagnoses Diagnosis Dyslipidemia Other and unspecified hyperlipidemia documented in this encounter Additional Health Concerns Assessment Noted Time PHQ-9 Depression Total Score: 4 08/27/19 25 10:00 AM EST documented as of this encounter Care Teams Branch Credit Counselor Relationship Specialty Start Date End Date Latrell Mckeon MD [address] [place] [address] PCP - General Family Medicine 08/05/23 Latrell Mckeon MD [address] [facility] [place] [address] PCP - ACO Reach 08/16/24 Siomara Fitzgerald DO [address] [place], [place] [address] Referring Physician Neurology 05/30/24 Sugar Arenas, FABIANO [address] [place] [address] Owner Operator Family Medicine 01/16/25 03/04/25 documented as of this encounter
--- OUTSIDE RECORDS SUMMARY | 2025-03-04 13:31 | XMS_ITS | Encounter Summary ---
Author Organization [facility] Address [address] [place] [address] Care Team Providers Care Slps Name Role Phone Latrell Mckeon MD Primary Care Provider [phone] Siomara Fitzgerald DO Unavailable [phone] Latrell Mckeon MD Unavailable Sugra Arenas DIRECTOR TALENT ACQUISITION Unavailable [phone] Encounter Details Date Type Department Care Team (Late st Contact Info) Description 03/27/2024 Orders Only [facility] [address] [place] [address] Katie Hairston MD [address] [place] [address], [address] [address] Social History Tobacco Use Types Packs/Day Years [...] often do you attend chur ch or islam services? Patient declined 02/02/2024 Do you belong to any clubs o r organizations such as congregation groups, unions, fraternal or athletic groups, or [...] Recorded Patient Health Questionnaire-2 Score 0 08/11/2023 [facility] - Occupational [...] any time in the past 12 m [facility], were you homeless or living [...] Office Visit [facility] [address] [place] [address] Latrell Mckeon MD [address] [place] [address] documented as of this encounter Procedures Procedure [...] on filedocumented in this encounter Care Teams Slps Relationship Specialty Start Date End Date Latrell Mckeon MD [address] [place] [address] PCP - General Family Medicine 08/05/23 Latrell Mckeon MD [address] [place] [address] PCP - ACO Reach 08/16/24 Siomara Fitzgerald DO [address] [place] [address] Referring Physician Neurology 05/30/24 Sugar Arenas, FABIANO [address] [place] [address] Demand Planning Manager Family Medicine 01/16/25 03/04/25 documented as of this encounter
--- OUTSIDE RECORDS SUMMARY | 2025-03-04 13:31 | XMS_ITS | Clinical Summary ---
Author Organization [employer] Address [id number] [address] [place] [address] Care Team Providers Care Bench Mechanic Name Role Phone Latrell Mckeon MD Primary Care Provider [phone] Allergies No known active allergies Medications zolpidem (AMBIEN) 10 mg tablet Take 10 mg by mouth daily. 10/13/2020 Active famotidine (PEPCID) 40 mg tablet Take 40 mg by mouth 2 (two) times a day. 11/08/2020 Active pantoprazole (PROTONIX) 40 mg EC tablet Take 40 mg by mouth daily. Active bwoqvatc-ntst-N A-calcium &mins (THERAGRAN-M) 9 mg iron-400 mcg [...] file Insurance MEDICARE [employer] Care Teams Bench Mechanic Relationship Specialty Start Date End Date Latrell Mckeon MD PCP - General Family Medicine 11/09/20
--- OUTSIDE RECORDS SUMMARY | 2025-03-04 13:31 | XMS_ITS | Encounter Summary ---
Author Organization [facility] Address [address] [place] [address] Care Team Providers Care Supervisor Sleeping Bag Department Name Role Phone Latrell Mckeon MD Primary Care Provider [phone] Siomara Fitzgerald DO Unavailable [phone] Latrell Mckeon MD Unavailable Sugar Arenas PLASTIC INSTALLER Unavailable [phone] Encounter Details Date Type Department Care Team (Late st Contact Info) Description 02/24/2025 Bamboo flowsheet [facility] [address] [place] [address] Latrell Mckeon MD [address] [place] [address] Social History Tobacco Use Types Packs/Day Years [...] often do you attend chur ch or voodoo services? Patient declined 02/02/2024 Do you belong [...] Recorded Patient Health Questionnaire-2 Score 0 08/27/2024 [facility] Occupat ional Health - Occupational Stress [...] time in the past 12 m [facility], were you homeless or living in a [...] Office Visit [facility] [address] [place] [address] Latrell Mckeon MD [address] [place] [address] documented as of this encounter Visit Diagnoses Not on filedocumented in this encounter Additional Health Concerns Assessment Noted Time PHQ-9 Depression Total Score: 4 08/27/19 25 10:00 AM EST documented as of this encounter Care Teams Supervisor Sleeping Bag Department Relationship Specialty Start Date End Date Latrell Mckeon MD [address] [place] [address] PCP - General Family Medicine 08/05/23 Latrell Mckeon MD [address] [place] [address] PCP - ACO Reach 08/16/24 Siomara Fitzgerald DO [address] [place] [address] Referring Physician Neurology 05/30/24 Sugar Arenas, FABIANO [address] [place] [address] Chief Technical Officer Family Medicine 01/16/25 03/04/25 documented as of this encounter
--- OUTSIDE RECORDS SUMMARY | 2025-03-04 13:31 | XMS_ITS | Encounter Summary ---
Author Organization [facility] Address [address] [facility] [place] [address] Care Team Providers Care Six Sigma Project Manager Name Role Phone Latrell Mckeon MD Primary Care Provider [phone] Siomara Fitzgerald DO Unavailable [phone] Latrell cMkeon MD Unavailable Sugar Arenas DIPLOMA DENTAL ASSISTANT Unavailable [phone] Encounter Details Date Type Department Care Team (Late Contact Info) Description 11/28/2023 Orders Only [facility] [address] [place] [address] Latrell Mckeon MD [address] [place] [address] Social History Tobacco Use Types [...] Upcoming Encounters Date Type Department Care Team ([facility] Contact Info) Description 04/29/2025 1:15 PM EDT Office Visit [facility] [address] [place] [address] Latrell Mckeon MD [address] [place] [address] documented as of this encounter Procedures Procedure [...] on filedocumented in this encounter Care Teams Six Sigma Project Manager Relationship Specialty Start Date End Date Latrell Mckeon MD [address] [place] [address] PCP - General Family Medicine 08/05/23 Latrell Mckeon MD [address] [place] [address] PCP - ACO Reach 08/16/24 Siomara Fitzgerald DO [address] [place] [address] Referring Physician Neurology 05/30/24 Sugar Arenas, DIPLOMA DENTAL ASSISTANT [address] [place], [place] [id number] [place] [facility] Family Medicine 01/16/25 03/04/25 documented as of this encounter
--- OUTSIDE RECORDS SUMMARY | 2025-03-04 13:31 | XMS_ITS | Encounter Summary ---
Author Organization [facility] Address [address] [place] [address] Care Team Providers Care Loan Clerk Name Role Phone Latrell Mckeon MD Primary Care Provider [phone] Siomara Fitzgerald DO Unavailable [phone] Latrell Mckeon MD Unavailable Sugar Arenas MS SQL SERVER DEVELOPER Unavailable [phone] Encounter Details Date Type Department Care Team (Late st Contact Info) Description 02/27/2025 [facility] [address] [place] [address] Latrell Mckeon MD [address] [place] [address] Bilateral screening mammogram Social History Tobacco Use Types Packs/Day Years [...] any clubs o r organizations such as scientologist groups, unions, fraternal or athletic groups, or [...] Recorded Patient Health Questionnaire-2 Score 0 08/27/2024 [facility] ional Health - Occupational [...] any time in the past 12 m [facility], were you homeless or living in a correction (including now)? No 02/02/2024 Comments Unknown Sex [...] Office Visit [facility] [address] [place] [address] Latrell Mckeon MD [address] [place] [address] documented as of this encounter Visit Diagnoses Not on filedocumented in this encounter Additional Health Concerns Assessment Noted Time PHQ-9 Depression Total Score: 4 08/27/19 25 10:00 AM EST documented as of this encounter Care Teams Loan Clerk Relationship Specialty Start Date End Date Latrell Mckeon MD [address] [place] [phone] PCP - General Family Medicine 08/05/23 Latrell Mckeon MD [address] [place] [address] PCP - ACO Reach 08/16/24 Siomara Fitzgerald DO [address] [place] [address] Referring Physician Neurology 05/30/24 Sugar Arenas, FABIANO [address] [place] [address] Pitch Filler Family Medicine 01/16/25 03/04/25 documented as of this encounter
--- NOTE | 2025-03-04 13:39 | CT_ITS ---
The [address] [address] Patient Name: PARTH BOSS MRN: [id number] date: 1950 Sex: F Assigned Patient Location: CT Current Patient Location: CT Accession/Order Number: [id number] Exam Date: 03/04/2025 13:52 Report Date: 03/04/2025 14:31 At the request of: SHERMAN JACK MD Procedure: CT lung screening low-dose CT CHEST WITHOUT CONTRAST, LOW DOSE SCREENING: CLINICAL DATA: A 74-year old former smoker, smoking for 88 pack-years. COMPARISON: CT 07/28/2022 TECHNIQUE: Noncontrast axial CT scan images of the chest were obtained under the low dose screening CT protocol. Coronal and sagittal reconstructed images were also submitted. FINDINGS: Mediastinum : Suboptimal evaluation due to low-dose technique. Thoracic aorta appears normal in caliber. Pulmonary trunk appears nondilated. No pericardial effusion. No lymphadenopathy. The esophagus is grossly unremarkable. Lungs: No focal consolidation, pneumothorax or pleural effusion. Trachea and distal airways appear patent. Diffuse fibrotic changes without honeycombing. No suspicious noncalcified pulmonary nodule or mass. Upper abdomen: No acute findings. Bony thorax and chest wall: Soft tissues surrounding the chest wall demonstrate no acute findings. Osseous structures demonstrate degenerative change. CT/CT lung screening low-dose IMPRESSION: NO SUSPICIOUS PULMONARY NODULE OR MASS. LUNG - RADS Version 1.0 Assessment: Category 1, Negative (No nodules and definitely benign nodules). Management: Continue annual lung screening with LDCT in 12 months. Impression dictated by: Claude Bahena Jr., D.O. 03/04/2025 2:31 PM Dictation Location: [facility] Electronically authenticated by: [id number] Y Date: 03/04/2025 14:31
--- OUTSIDE RECORDS SUMMARY | 2025-03-04 13:55 | XMS_ITS | CCD ---
Author Organization [facility] Care Team Providers Care Systems Protection Technician Name Role Phone FREDY, DR CHAPARRO Attending [...] Unavailable NADERER, LATRELL Referring Unavailable Yovanny OLIVO, Katie Talal Unavailable [phone] Diomedes Fitzgerald DO Unavailable Guero OLIVO, Latrell A Primary Care Provider Yovanny OLIVO, Katie T Unavailable GUERO, LATRELL A Primary Care [...] Unavailable Latrell Jack MD Primary Care Provider [phone] Julio OLIVO, Erik Admit Provider Julio OLIVO, Erik Attending Provider [phone] Tra Hobson MD Attending Provider [phone] Julio OLIVO, Erik Attending Provider Julio OLIVO, Erik Other Provider Diomedes Fitzgerald DO Attending Provider [phone] Saundra OLIVO, Talat Benedict Attending Unavailable Gishannon OLIVO, Talat Benedict Attending Unavailable Gishannon OLIVO, Andlinette Benedict Attending Unavailable Giyaniqueitis , Andlinette Benedict Attending Unavailable Saundra OLIVO, Talat Benedict Attending Unavailable Saundra OLIVO, Talat Benedict Attending Unavailable Erik Kim Admitting Unavailab Tra Chew Attending Unavailable Latrell Jack Primary Care Unavailable Sugar Barragan Unavailable [phone] LATRELL JACK Attending Unavailable SANDRA ARCOS Attending Unavailable LATRELL JACK Attending Unavailable LATRELL JACK Attending Unavailable DIOMEDES FITZGERALD Attending Unavailable LATRELL JACK Referring Unavailable DIOMEDES FITZGERALD Referring Unavailable MAO MORROW Attending Unavailable LATRELL JACK Attending Unavailable SANDRA ARCOS Attending Unavailable Allergies Allergy Classification Reported Allergen(s) Allergy Type Date of Onset Reaction(s) Facility (1 source) Amino Acids Drug Allergy [facility] Medications Current Medications Medication Drug Class(es) Dates Sig (Normalized) Sig (Original) acetaminophen 500 mg oral tablet (15 sources) Start: 07-26-2024 take 1 tablet by [...] daily as needed for pain HYDROcodone-acetami nophen ([place]) 5-325 MG tablet Indications: Degenerative lumbar spinal [...] Active docusate sodium 100 mg oral capsule (15 sources) Start: 07-26-2024 Docusate Sodiu m (DSS) [...] number: 1 eszopiclone 2 mg oral tablet (3 sources) Start: 02-03-2025 take 1 tablet by [...] Active Start: 09-06-2023 Flonase 0.05 m g/inh Austin 2 spray(s), Nasal, Daily, Refill(s) 0, Dry [...] 0 Active methocarbamol 500 mg oral tablet (12 sources) Muscle Relaxant Start: 02-03-2025 Methocarbamol 500 [...] 1 capsule by inhalation once daily Tiotropium Osborn (Spiriva With Handihaler) 18 mcg capsule, w/inhalation [...] RESPIMAT INHALATION) Inhale as instructed. Active Tiotropium Osborn (Spiriva With Handihaler) 18 mcg capsule, w/inhalation device (1 source) Start: 12-12-2024 take 1 capsule by inhalation once daily Tiotropium Osborn (Spiriva With Handihaler) 18 mcg capsule, w/inhalation [...] Status: Ordered take 1 capsule by mo [facility] once daily alpha tocopherol (Vitamin E) 400 units capsule Take 1 capsule by mouth 1 (one) time each day at the same time Active Vitamin E, dl, a cetate, (VITAMIN E) 400 unit capsule Take 1 capsule by mouth. Active zonisamide 50 mg oral capsule (14 sources) Anti-epileptic Agent Start: 06-05-2025 take 1 [...] (BMI) of 38.0 to 38.9 in adult ([facility])] Onset: 4 Resolved: 5 05-15-2024 Chronic Other [...] of mental health and substance abuse codes (17 sources) Personal history of nicotine dependence; Translations: [Ex-smoker] Onset: 2 Episodic Spondylosis; intervertebral disc disorders; other back problems (18 sources) Lumbago with sciatica, left side; Translations: [...] have any medical concerns. 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 Ordering Physician: Latrell Jack M.D. Results: Date of Service: 02/27/25 Follow Up: Procedure(s): MM tomosynthesis screening BI Accession Number(s): [id number] cc: Latrell Jack M.D. Patient Name: SHEY OBRIEN MR#: [id number] : 1950 Exam Date: 02/27/2025 Ordering Doctor: [...] at age 46. 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 Ordering Physician: Latrell Jack M.D. Results: Date of Service: 02/27/25 Follow Up: Procedure(s): MM tomosynthesis screening BI Accession Number(s): [id number] cc: Latrell Jack M.D. Patient Name: SHEY OBRIEN MR#: [id number] : 1950 Exam Date: 02/27/2025 Ordering Doctor: DR LATRELL Martinez RADIOLOGY REPORT PROCEDURE: MM TOMOSYNTHESIS SCREENING [...] at age 46. LOCATION: [facility] BREAST COMPOSITION: The breasts are almost entirely [...] Dictated By: Pa Villa M.D. 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 FINAL REPORTS Final Report [] Verified Date/Time: [...] Locations R1: This test was performed at: [facility], [address] [place] [address], [phone]- , , [facility] Comment on above: Performed By: #### 2 [id number] #### [facility] [address] [place] [address] Cholesterol [Mass/volume] in Serum or PlasmaOrdered By: Erik Kim on 12-13-2024 Cholesterol [Mass/Vol] Cholesterol [Mass/volume] in Serum or Plasma 140-200 [facility] Comment on above: Chol less than 200 m g/dl low riskChol 201-239 mg/dl borderline riskChol 240 mg/dl and greater high risk Cholesterol [Mass/Vol] 149 mg/dL Normal 140-200 [facility] Comment on above: Chol less than 200 m g/dl low riskChol 201-239 mg/dl borderline riskChol 240 mg/dl and greater high risk Result Comment: Chol less than 200 mg/dl low risk Chol 201-239 mg/dl borderline risk Chol 240 mg/dl and greater high risk Performed By: #### T SH3 wRFLX, LIPID, [id number] #### [facility] [address] [place] [address] [place] Cholesterol in HDL [Mass/vol ume] in Serum or PlasmaOrdered By: Erik Kim on 12-13-2024 Cholesterol in HDL [Mass/Vol] Serum or plasma high density lipoprotein (HDL) cholesterol measurement [facility] Comment on above: HDL CHOL ATP-III CLA SSIFICATION Cardiovascular RiskHDL > or equal to 60 mg/dL LOWHDL < 40 mg/dL HIGH Cholesterol in HDL [Mass/Vol] 42 mg/dL Normal [facility] Comment on above: HDL CHOL ATP-III CLA SSIFICATION Cardiovascular RiskHDL > or equal to 60 mg/dL LOWHDL < 40 mg/dL HIGH Result Comment: HDL CHOL ATP-III CLASSIFICATION Cardiovascular Risk HDL > or equal to 60 mg/dL LOW HDL < 40 mg/dL HIGH Performed By: #### T SH3 wRFLX, LIPID, [id number] #### [facility] [address] [place] [address] [place] Cholesterol in LDL Calc [Mas s/Vol]Ordered By: Erik Kim on 12-13-2024 Cholesterol in LDL [Mass/Vol] Cholesterol in LDL [Mass/volume] in Serum or Plasma by calculation 0 [facility] Comment on above: LDL ATP III CLASSIFI CATIONLDL less than 100 mg/dL OptimalLDL 100-129 mg/dL Near or above optimalLDL 130-159 mg/dL Borderline highLDL 160-189 mg/dL HighLDL greater than 189 mg/dL Very high Cholesterol in LDL [Mass/Vol] 39 mg/dL 0 [facility] Comment on above: LDL ATP III CLASSIFI CATIONLDL less than 100 mg/dL OptimalLDL 100-129 mg/dL Near or above optimalLDL 130-159 mg/dL Borderline highLDL 160-189 mg/dL HighLDL greater than 189 mg/dL Very high Cholesterol in VLDL Calc [Ma ss/Vol]Ordered By: Erik Kim on 12-13-2024 Cholesterol in VLDL [Mass/Vol] Cholesterol in VLDL [Mass/volume] in Serum or Plasma by calculation [facility] Cholesterol in VLDL [Mass/Vol] 67 mg/dL [facility] Lipid Panelon 12-13-2024 LDL Cholesterol,Calculate d 39 mg/dL Normal 0-100 [facility] Comment on above: Result Comment: LDL ATP III CLASSIFICATION LDL less than 100 mg/dL Optimal LDL 100-129 mg/dL Near or above optimal LDL 130-159 mg/dL Borderline high LDL 160-189 mg/dL High LDL greater than 189 mg/dL Very high Performed By: #### T SH3 wRFLX, LIPID, [id number] #### [facility] [address] Triglyceride w/Reflex 338 mg/dL High 0-149 [facility] Comment on above: Result Comment: TRIG ATP III CLASSIFICATION TRIG less than 150 mg/dL Normal TRIG 150-199 mg/dL Borderline high TRIG 200-500 mg/dL High TRIG greater than 500 mg/dL Very high Standard traceable to the Center for Disease Conrtrol and Prevention (CDC) test method. Performed By: #### T SH3 wRFLX, LIPID, [id number] #### [facility] [address] VLDL CHOLESTEROL 67 mg/dL Normal [facility] Comment on above: Performed By: #### T SH3 wRFLX, LIPID, [id number] #### [facility] [address] Serum or plasma total choles terol/high density lipoprotein (HDL) cholesterol mass ratOrdered By: Erik Kim on 12-13-2024 Cholesterol.total/Cho lesterol in HDL [Mass ratio] Serum or plasma total cholesterol/high density lipoprotein (HDL) cholesterol mass rat <5.0 [facility] Cholesterol.total/Cho lesterol in HDL [Mass ratio] 3.5 {ratio} Normal <5.0 [facility] Comment on above: Performed By: #### T SH3 wRFLX, LIPID, [id number] #### [facility] [address] Thyroid Stim Hormone w/Rflxo n 12-13-2024 Thyroid Stim Hormone w/Rflx 1.95 u[iU]/mL Normal 0.45-5.33 [facility] Comment on above: Performed By: #### T SH3 wRFLX, LIPID, [id number] #### [facility] [address] Thyrotropin [Units/volume] i n Serum or PlasmaOrdered By: Erik Kim on 12-13-2024 TSH Qn Thyrotropin [Units/volume] in Serum or Plasma 0.45-5.33 [facility] TSH Qn 1.95 m[IU]/L 0.45-5.33 [facility] Triglyceride [Mass/volume] i n Serum or PlasmaOrdered By: Erik Kim on 12-13-2024 Triglyceride [Mass/Vol] Triglyceride [Mass/volume] in Serum or Plasma High 0-149 [facility] Comment on above: TRIG ATP III CLASSIF ICATIONTRIG less than 150 mg/dL NormalTRIG 150-199 mg/dL Borderline highTRIG 200-500 mg/dL High TRIG greater than 500 mg/dL Very highStandard traceable to the Center for Disease Conrtrol and Prevention (CDC) test method. Triglyceride [Mass/Vol] 338 mg/dL High 0-149 [facility] Comment on above: TRIG ATP III CLASSIF ICATIONTRIG less than 150 mg/dL NormalTRIG 150-199 mg/dL Borderline highTRIG 200-500 mg/dL High TRIG greater than 500 mg/dL Very highStandard traceable to the Center for Disease Conrtrol and Prevention (CDC) test method. Vitamin D 25 Hydroxy Totalon 12-13-2024 Vitamin D 25 Hydroxy Total 26.8 ng/mL Low 30-100 [facility] Comment on above: Result Comment: FRANCESCO MIN D STATUS 25(OH)VITAMIN D RANGE (ng/mL) Deficient <20 Insufficient 20 to <30 Sufficient 30 to 100 Reference: Abdi MF,Shannon NC, Danyel HICKS, et al. Evaluation,treatment, and prevention of vitamin D deficiency; an Endocrine Society clinical practice guideline. JCEM. 2010; 96(7):1911-. PERFORMED BY: [facility] [address] [place] [address] PATHOLOGIST SHOP HELPER AVRIL LEDESMA M.D. Performed By: #### T SH3 wRFLX, LIPID, [id number] #### [facility] [address] Vitamin D+Metabolites [Mass/ volume] in Serum or PlasmaOrdered By: Erik Kim on 12-13-2024 Vitamin D+Metabolites [Mass/Vol] Vitamin D+Metabolites [Mass/volume] in Serum or Plasma Low 30-100 [facility] Comment on above: VITAMIN D STATUS 25( OH)VITAMIN D RANGE (ng/mL) Deficient <20 Insufficient 20 to <30Sufficient 30 to 100Reference: Abdi HAMPTON,Shannon LIZARRAGA, Danyel HICKS, et al. Evaluation,treatment, and prevention of vitamin D deficiency; an Endocrine Society clinical practice guideline. JCEM. 2010; 96(7):1911-. Vitamin D+Metabolites [Mass/Vol] 26.8 ng/mL Low 30-100 [facility] Comment on above: VITAMIN D STATUS 25( OH)VITAMIN D RANGE (ng/mL) Deficient <20 Insufficient 20 to <30Sufficient 30 to 100Reference: Shannon Remy, Danyel HICKS, et al. Evaluation,treatment, and prevention of vitamin D deficiency; an Endocrine Society clinical practice guideline. JCEM. 2010; 96(7):1911-30. CBC w/ Auto Diffon 5 Basophil Absolute 0.0 E9/L Normal 0.0-0.2 [facility] Comment on above: Performed By: #### 2 [id number] #### [facility] [address] [place] [address] Basophils/100 WBC (Bld) 0.3 % Normal 0.0-2.0 [facility] Comment on above: Performed By: #### 2 [id number] #### [facility] [address] [place] [address] Eos Absolute 0.2 E9/L Normal 0.0-0.5 [facility] Comment on above: Performed By: #### 2 099297 #### [facility] [address] [place] [address] Eosinophils/100 WBC (Bld) 2.8 % Normal 0.0-8.0 [facility] Comment on above: Performed By: #### 2 142939 #### [facility] [address] [place] [address] Erythrocyte distribution width (RBC) [Ratio] 14.7 % High 10.9-14.2 [facility] Comment on above: Performed By: #### 2 030073 #### [facility] [address] [place] [address] Hematocrit (Bld) [Volume fraction] 40.9 % Normal 34.0-46.0 [facility] Comment on above: Performed By: #### 2 984092 #### [facility] [address] [place] [address] Hemoglobin (Bld) [Mass/Vol] 14.1 g/dL Normal 12.0-16.0 [facility] Comment on above: Performed By: #### 2 064601 #### [facility] [address] [place] [address] Lymph Absolute 2.0 E9/L Normal 1.0-4.0 [facility] Comment on above: Performed By: #### 2 638942 #### [facility] [address] [place] [address] Lymphocytes/100 WBC (Bld) 24.1 % Normal 14.0-50.0 [facility] Comment on above: Performed By: #### 2 836644 #### [facility] [address] [place] [address] MCH (RBC) [Entitic mass] 30.7 pg Normal 27.0-34.0 [facility] Comment on above: Performed By: #### 2 736986 #### [facility] [address] [place] [address] MCHC (RBC) [Mass/Vol] 34.5 g/dL Normal 31.4-36.0 [facility] Comment on above: Performed By: #### 2 333459 #### [facility] [address] [place] [address] MCV (RBC) [Entitic vol] 88.8 fL Normal 80.0-100.0 [facility] Comment on above: Performed By: #### 2 718197 #### [facility] [address] [place] [address] Steele Absolute 0.5 E9/L Normal 0.2-1.0 [facility] Comment on above: Performed By: #### 2 039746 #### [facility] [address] [place] [address] Monocytes/100 WBC (Bld) 6.8 % Normal 4.0-14.0 [facility] Comment on above: Performed By: #### 2 202414 #### [facility] [address] [place] [address] Neutro Absolute 5.4 E9/L Normal 2.0-7.[address] [facility] Comment on above: Performed By: #### 2 373211 #### [facility] [address] [place] [address] Neutro Auto 66.0 % Normal 36.0-75.0 [facility] Comment on above: Performed By: #### 2 505245 #### [facility] [address] [place] [address] Platelet 168.0 E9/L Normal 150.0-500.0 [facility] Comment on above: Performed By: #### 2 078574 #### [facility] [address] [place] [address] Platelet mean volume (Bld) [Entitic vol] 8.0 fL Normal 6.4-10.8 [facility] Comment on above: Performed By: #### 2 194142 #### [facility] [address] [place] [address] RBC 4.6 E12/L Normal 4.3-5.9 [facility] Comment on above: Performed By: #### 2 312075 #### [facility] [address] [place] [address] WBC 8.1 E9/L Normal 4.0-11.0 [facility] Comment on above: Performed By: #### 2 438706 #### [facility] [address] [place] [address] CHEMISTRYOrdered By: SYSTEM SYSTEM on 12-12-2024 Amphetamines [...] 12-12-2024 Albumin [Mass/Vol] 4.0 g/dL Normal 3.3-5.0 [facility] Comment on above: Performed By: #### 2 046768 #### [facility] [address] [place] [address] Albumin/Globulin [Mass ratio] 1.4 {ratio} Normal 1.1-2.2 [facility] Comment on above: Performed By: #### 2 139549 #### [facility] [address] [place] [address] Alk Phos 89 Int._Unit/L Normal 21-98 [facility] Comment on above: Performed By: #### 2 861104 #### [facility] [address] [place] [address] ALT 20 Int._Unit/L Normal 6-46 [facility] Comment on above: Performed By: #### 2 142792 #### [facility] [address] [place] [address] Anion gap [Moles/Vol] 11 mmol/L Normal 6-16 [facility] Comment on above: Performed By: #### 2 648137 #### [facility] [address] [place] [address] AST 22 Int._Unit/L Normal 5-43 [facility] Comment on above: Performed By: #### 2 983481 #### [facility] [address] [place] [address] Bili Total 0.6 mg/dL Normal 0.0-1.1 [facility] Comment on above: Performed By: #### 2 138443 #### [facility] [address] [place] [address] BUN/Creat Ratio 24 No Units High 10-[address] [facility] Comment on above: Performed By: #### 2 710336 #### [facility] [address] [place] [address] Calcium [Mass/Vol] 9.2 mg/dL Normal 8.9-11.1 [facility] Comment on above: Performed By: #### 2 726632 #### [facility] [address] [place] [address] Chloride [Moles/Vol] 101 mmol/L Normal 101-111 [facility] Comment on above: Performed By: #### 2 581414 #### [facility] [address] [place] [address] CO2 [Moles/Vol] 28 mmol/L Normal 21-[address] [facility] Comment on above: Performed By: #### 2 987067 #### [facility] [address] [place] [address] Creatinine [Mass/Vol] 0.9 mg/dL Normal 0.5-1.3 [facility] Comment on above: Performed By: #### 2 061690 #### [facility] [address] [place] [address] Globulin (S) [Mass/Vol] 2.9 g/dL Normal 1.4-4.0 [facility] Comment on above: Performed By: #### 2 289068 #### [facility] [address] [place] [address] Glucose [Mass/Vol] 133 mg/dL Normal 55-199 [facility] Comment on above: Performed By: #### 2 747347 #### [facility] [address] [place] [address] Potassium [Moles/Vol] 3.5 mmol/L Normal 3.5-5.3 [facility] Comment on above: Performed By: #### 2 739845 #### [facility] [address] [place] [address] Protein [Mass/Vol] 6.9 g/dL Normal 6.0-7.8 [facility] Comment on above: Performed By: #### 2 918580 #### [facility] [address] [place] [address] Sodium [Moles/Vol] 136 mmol/L Normal 135-145 [facility] Comment on above: Performed By: #### 2 831286 #### [facility] [address] [place] [address] Urea nitrogen [Mass/Vol] 22 mg/dL High 5-21 [facility] Comment on above: Performed By: #### 2 369752 #### [facility] [address] [place] [address] ED Clinical Summaryon 2024 ED Clinical Summary ED Clinical Summary [address] [address] ED Clinical Summary Person Information Name: SHEY OBRIEN/[facility] Age: 74 Years : 1950 Sex: Female Language: Malagasy PCP: LATRELL JACK MD Marital Status: Single [...] 12/12/2024 17:40:09 12/12/2024 17:40:09 12/12/2024 17:40:09 ADDRESS: [address] [place] [id number] PHYS DOC NOTES: MEDICAL INFORMATION: Prescriptions Given: [...] (at bedtime). fluticasone nasal (Flonase 0.05 mg/inh Austin) 2 Sprays Nasal Inhalation every day. losartan [...] Instructions: Follow up: DIAGNOSIS: Suicidal ideation Normal [facility] ED Note-Physicianon 12-13-19 ED Note-Physician ED [...] culture. MHP evaluated. Patient be placed at [address] Kim. Assessment/Plan Suicidal ideation [...] a day (at bedtime) Flonase 0.05 mg/inh Austin, 2 spray(s), Nasal, Daily losartan 25 mg [...] (12/12/24 13:50 (more content not included)... Normal [facility] Comment on above: Result Comment: Elec tronically Signed By: Elmer Kohli DO\.br\Date and Time Signed: 12/12/24 17:26 EDT ED Patient Education Noteon 12-12-2024 ED Patient Education Note ED Patient Education Note Normal [facility] ED Patient Summaryon 025 ED Patient Summary ED Patient Summary [place] [id number] Patient Discharge Instructions Person Information Name: SHEY OBRIEN Age: 74 Years Arrival Date: 12/12/2024 13:24:04 Discharge Diagnosis: Suicidal ideation Primary Care Physician: LATRELL JACK MD Provider Information Primary Provider: Elmer Kohli DO Advanced Parking Enforcement Specialist:None The exam and treatment you received in the Emergency Department were for an urgent problem and are not intended as complete care. It is important that you follow up with a doctor, nurse practitioner, or physician???s internal medicine physician assistant for ongoing care. If your symptoms [...] opioids can be used to help relieve wvlwlxna-sq-kgfiza pain and are often prescribed following a [...] be struggling with addiction, tell your health healthcare economics manager and ask for guidance or call [facility]???S [employer] Helpline at 7-729-659-EGLK. q Source: [place] Department of Health and Human Services/Center for Disease Control & Prevention Gloria (more content not included)... Normal [facility] Ethanolon 12-12-2024 Ethanol Lvl <10 Normal <=11 [facility] Comment on above: Performed By: #### 2 [id number] #### [facility] [address] [place] [address] HEMATOLOGYOrdered By: SYSTEM SYSTEM on 12-12-2024 Basophils/100 [...] 12-12-2024 U Amph Scr Negative Normal NEGATIVE [facility] Comment on above: Result Comment: Nega tive Cutoff: <1000 ng/mL Performed By: #### 2 728746 #### [facility] [address] [place] [address] U Jessica Scr Negative Normal NEGATIVE [facility] Comment on above: Result Comment: Nega tive Cutoff: <200 ng/mL Performed By: #### 2 906872 #### [facility] [address] [facility] [place] [address] U Benzodia Scr Negative Normal NEGATIVE [facility] Comment on above: Result Comment: Nega tive Cutoff: <200 ng/mL Performed By: #### 2 595861 #### [facility] [address] [facility] [place] [address] U Cannab Scr Negative Normal NEGATIVE [facility] Comment on above: Result Comment: Nega tive Cutoff: <50 ng/mL Performed By: #### 2 886811 #### [facility] [address] [place] [address] U Cocaine Scr Negative Normal NEGATIVE [facility] Comment on above: Result Comment: Nega tive Cutoff: <300 ng/mL Performed By: #### 2 258501 #### [facility] [address] [place] [address] U Fentanyl Negative Normal NEGATIVE [facility] Comment on above: Result Comment: Nega tive Cutoff: <5 ng/mL These drug screen results are to be used for medical (i.e., treatment) purposes only. Unconfirmed drug screening results must not be used for non-medical purposes (e.g., employment testing, legal testing). Performed By: #### 2 [id number] #### [facility] [address] [place] [address] U Opiate Scr Negative Normal NEGATIVE [facility] Comment on above: Result Comment: Nega tive Cutoff: <300 ng/mL Performed By: #### 2 [id number] #### [facility] [address] [place] [address] U PCP Scr Negative Normal NEGATIVE [facility] Comment on above: Result Comment: Nega tive Cutoff: <25 ng/mL These drug screen results are to be used for medical (i.e., treatment) purposes only. Unconfirmed drug screening results must not be used for non-medical purposes (e.g., employment testing, legal testing). Performed By: #### 2 [id number] #### [facility] [address] [place] [address] UA with Cult Rflxon 12-13-19 25 Color (U) Light-Yellow Normal Yellow [facility] Comment on above: Result Comment: Micr oscopic readings are only performed on those samples that meet specific criteria set forth by [facility]. Performed By: #### 4 [id number] #### [facility] [address] [place] [address] Glucose (U) [Mass/Vol] Negative Normal Negative [facility] Comment on above: Performed By: #### 4 [id number] #### [facility] [address] [place] [address] Ketones Ql (U) Negative Normal Negative [facility] Comment on above: Performed By: #### 4 [id number] #### [facility] [address] [place] [address] UA Blood Negative Normal Negative [facility] Comment on above: Performed By: #### 4 [id number] #### [facility] [address] [place] [address] UA Bacteria 1+ /HPF Abnormal Trace [facility] Comment on above: Performed By: #### 4 [id number] #### [facility] [address] [place] [address] UA Clarity Clear Normal Clear [facility] Comment on above: Performed By: #### 4 [id number] #### [facility] [address] [place] [address] UA Leuk Est 75 [place]/uL Abnormal Negative [facility] Comment on above: Performed By: #### 4 [id number] #### [facility] [address] [place] [address] UA Mucous Trace Normal Negative [facility] Comment on above: Performed By: #### 4 [id number] #### [facility] [address] [place] [address] UA Nitrite Negative Normal Negative [facility] Comment on above: Performed By: #### 4 [id number] #### [facility] [address] [place] [address] UA pH 5.5 Invalid Interpretation Code 5.0-9.0 [facility] Comment on above: Performed By: #### 4 [id number] #### [facility] [address] [place] [address] UA Protein Negative Normal Negative [facility] Comment on above: Performed By: #### 4 [id number] #### [facility] [address] [place] [address] UA Spec Grav 1.009 Invalid Interpretation Code 1.005-1.030 [facility] Comment on above: Performed By: #### 4 [id number] #### [facility] [address] [place] [address] UA Squam Epithelial 0-2 Invalid Interpretation Code [facility] Comment on above: Performed By: #### 4 [id number] #### [facility] [address] [place] [address] UA Urobilinogen Negative Normal Negative [facility] Comment on above: Performed By: #### 4 [id number] #### [facility] [address] [place] [address] Urobilinogen (U) [Mass/Vol] Negative Normal Negative [facility] Comment on above: Performed By: #### 4 [id number] #### [facility] [address] [place] [address] UA Spec Desc Clean Catch Normal [facility] Comment on above: Performed By: #### 4 [id number] #### [facility] [address] [place] [address] URINALYSISOrdered By: SYSTEM SYSTEM on 12-12-2024 Bacteria Auto Ql (U) 1+ /HPF Invalid Interpretation Code Trace/HPF FT UA Auto SS Bilirubin Ql (U) Negative Normal Negativemg/ d L [facility] UA Auto SS Clarity (U) Clear (12/12/24 2:18 PM) Normal Clear [facility] UA Auto SS Color (U) Light-Yellow 3 (12/12/24 2:18 PM) Normal Yellow [facility] UA Auto SS Comment on above: Interpretive Data: M icroscopic readings are only performed on those samples that meet specific criteria set forth by [facility]. Epithelial cells.squamous Auto (Urine sed) [...] PM) Invalid Interpretation Code 5.0 - 9.0 [facility] UA Auto SS Protein Ql (U) Negative Normal Negativemg/d L [facility] UA Auto SS Specific gravity (U) [Rel density] 1.009 *NA* (12/12/24 2:18 PM) Invalid Interpretation Code 1.005 - 1.030 [facility] UA Auto SS Urobilinogen (U) [Mass/Vol] Negative Normal Negativemg/d L [facility] UA Auto SS URINALYSISOrdered By: Elmer Kohli on 12-12-2024 UA Spec Desc Clean Catch (12/12/24 2:18 PM) Normal [facility] UA Auto SS XR HIP LT MIN [address] [place] [address] XRay Report Signed Patient: SHEY OBRIEN MR#: [id number] : 1950 Acct:[id number] Age/Sex: 74 / F ADM Date: 12/12/24 Loc: RAD Attending Dr: Will Woodson NP Ordering Physician: Will Woodson NP Date of Service: 12/12/24 Procedure(s): XR hip LT min 2V Accession Number(s): [id number] cc: Will Woodson NP; Latrell Jack M.D. The [address] [address] Patient Name: SHEY OBRIEN MRN: [facility]:[id number] date: 1950 Sex: F Assigned Patient Location: Current Patient Location: Accession/Order Number: [id number] Exam Date: 12/12/2024 10:32 Report Date: 12/12/2024 [...] Narvaez M.D. 12/12/2024 10:34 AM Dictation Location: [place] [address] Electronically authenticated by: [id number] Y Date: 12/12/2024 10:34 Dictated By: Juliane Narvaez M.D. Signed By: 12/12/24 1037 DD/ 1034 TD/TT: [employer] Teacher: [facility] Radiology, Radiologist, - 12/12/2024 [facility] [place] [id number] XRay Report Signed Patient: SHEY OBRIEN MR#: [id number] : 1950 Acct:[id number] Age/Sex: 74 / F ADM Date: 12/12/24 Loc: RAD Attending Dr: Will Woodson NP Ordering Physician: Will Woodson NP Date of Service: 12/12/24 Procedure(s): XR hip LT min 2V Accession Number(s): [id number] cc: Will Woodson NP; Latrell Jack M.D. The [address] [address] Patient Name: SHEY OBRIEN MRN: [facility]:[id number] date: 1950 Sex: F Assigned Patient Location: Current Patient Location: Accession/Order Number: [id number] Exam Date: 12/12/2024 10:32 Report Date: 12/12/2024 [...] Narvaez M.D. 12/12/2024 10:34 AM Dictation Location: [place] [address] Electronically authenticated by: [id number] Y Date: 12/12/2024 10:34 Dictated By: Juliane Narvaez M.D. Signed By: 12/12/24 1037 DD/ 1034 TD/TT: [employer] Teacher: [facility] Radiology Study observation (narrative) [facility] XR HIP LT MIN 2VOrdered By: Radiologist Radiology on 12-12-2024 [facility] Work Phone: eGFRon 12-12-2024 eGFR 67 mL/min/1.73 m2 Normal >=59 [facility] Comment on above: Performed By: #### 1 [id number] #### [facility] [address] [place] [address] ALL CBC WITH AUTO DIFFon BASOPHILS ABSOLUTE AUTO 0 [facility] Basophils/100 WBC (Bld) 0.4 % 0.2 - 2.0 % [facility] Eosinophils/100 WBC (Bld) 3.5 % 0.9 - 7.0 % [facility] Erythrocyte distribution width (RBC) [Ratio] 12.8 % 11.0 - 15.0 % [facility] Hematocrit (Bld) [Volume fraction] 39.2 % 36.0 - 48.0 % [facility] Hemoglobin (Bld) [Mass/Vol] 13.1 g/dL 12.0 - 16.0 g/dL [facility] IMMATURE GRANULOCYTES ABS AUTO 0.09 High [facility] Immature granulocytes/100 WBC (Bld) 1.3 % High 0.0 - 0.5 % [facility] Interpretation and review of laboratory results Abnormal [facility] LYMPHOCYTES ABSOLUTE AUTO 1.2 [facility] Lymphocytes/100 WBC (Bld) 18.3 % Low 20.5 - 60.0 % [facility] MCH (RBC) [Entitic mass] 31.9 pg 26.7 - 34.0 pg [facility] MCHC (RBC) [Mass/Vol] 33.4 g/dL 29.9 - 35.2 g/dL [facility] MCV (RBC) [Entitic vol] 95.4 fL 81.0 - 99.0 fL [facility] MONOCYTES ABSOLUTE AUTO 0.4 [facility] Monocytes/100 WBC (Bld) 6.5 % 1.7 - 12.0 % [facility] NEUTROPHILS ABSOLUTE AUTO 4.7 [facility] Neutrophils/100 WBC (Bld) 70 % 43.0 - 75.0 % [facility] Platelet mean volume (Bld) [Entitic vol] 10.6 fL 9.5 - 13.5 fL [facility]H EO # 0.2 [facility] PLT 194 [facility] RBC 4.11 Low [facility] TB WBC 6.8 [facility] CNOVon 08-07-2024 CNOV Office Visit (ARNOLDO ) SHEY OBRIEN ([id number]) 1950 F Date Time Provider Department 08/07/24 [...] Katarzyna Snyder APRN.CNP 08/07/2024 3:[address] [facility] Clinic Date: [...] completed prior to appointment Katarzyna Snyder, MSN, DIRECTOR HOME HEALTH August 07, 2024 Referring Provider: BARI CASTILLO [[id number]] Allergies As of Date: 08/07/2024 (No Known Allergies) Date Reviewed: 08/07/2024 Reviewed by: Olga Lidia Blake MA - Fully Assessed Reason for Visit: Post Op [174] Primary Visit Diagnosis:Postoperativ e visit [Z (more content not included)... Normal [facility] Basic metabolic 2000 panelon 07-26-2024 Anion gap [Moles/Vol] 12 mmol/L Normal 8-15 [facility] Comment on above: Order Comment: Speci men Type: BLOOD SPECIMEN Ordering Facility: [facility] Address: [address] [place] [address] Performed By: #### 2 4321-2, HSTNT, , 2776-07 #### [facility] CLIA [id number] [address] [place] [address] [place] Calcium [Mass/Vol] 9.0 mg/dL Normal 8.5-10.2 [facility] Comment on above: Order Comment: Speci men Type: BLOOD SPECIMEN Ordering Facility: [facility] Address: [address] [place] [address] Performed By: #### 2 4321-2, HSTNT, , 2776-07 #### [facility] CLIA [id number] [address] [place] [address] [place] Chloride [Moles/Vol] 107 mmol/L Normal 98-107 [facility] Comment on above: Order Comment: Speci men Type: BLOOD SPECIMEN Ordering Facility: [facility] Address: [address] [place] [address] Performed By: #### 2 4321-2, HSTNT, , 2776-07 #### [facility] CLIA [id number] [address] [place] [address] [place] CO2 [Moles/Vol] 24 mmol/L Normal 22-30 [facility] Comment on above: Order Comment: Speci men Type: BLOOD SPECIMEN Ordering Facility: [facility] Address: [address] [place] [address] Performed By: #### 2 4321-2, HSTNT, , 2776-07 #### [facility] CLIA [id number] [address] [place] [address] [place] Creatinine [Mass/Vol] 0.92 mg/dL Normal 0.58-0.96 [facility] Comment on above: Order Comment: Speci men Type: BLOOD SPECIMEN Ordering Facility: [facility] Address: [address] [place] [address] Performed By: #### 2 4321-2, HSTNT, , 2776-07 #### [facility] CLIA [id number] [address] [place] [address] [place] Creatinine and Glomerular filtration rate.predicted panel (S/P/Bld) 66 mL/min/1.73m??? Normal >=60 [facility] Comment on above: Order Comment: Speci men Type: BLOOD SPECIMEN Ordering Facility: [facility] Address: [address] [place] [address] Result Comment: Ira mated Glomerular Filtration Rate [...] 4321-2, HSTNT, , 2776-07 #### [facility] CLIA [id number] [address] [place], [place] [address] [place] Glucose [Mass/Vol] 112 mg/dL High 74-99 [facility] Comment on above: Order Comment: Speci men Type: BLOOD SPECIMEN Ordering Facility: [facility] Address: [address] [place] [address] Result Comment: The [place] [employer] (ADA) provides guidance for cutoff [...] Standards of Medical Care in Diabetes 2016, [place] [employer]. Diabetes Care. 2016.39(Suppl 1). Performed By: #### 2 4321-2, HSTNT, , 2776-07 #### [facility] CLIA [id number] [address] [place] [address] [place] Potassium [Moles/Vol] 3.4 mmol/L Low 3.7-5.1 [facility] Comment on above: Order Comment: Speci men Type: BLOOD SPECIMEN Ordering Facility: [facility] Address: [address] [place] [address] Performed By: #### 2 4321-2, HSTNT, , 2776-07 #### [facility] CLIA [id number] [address] [place] [address] [place] Sodium [Moles/Vol] 143 mmol/L Normal 136-144 [facility] Comment on above: Order Comment: Speci men Type: BLOOD SPECIMEN Ordering Facility: [facility] Address: [address] [place] [address] Performed By: #### 2 4321-2, HSTNT, , 2776-07 #### [facility] CLIA [id number] [address] [place] [address] [place] Urea nitrogen [Mass/Vol] 10 mg/dL Normal 7-21 [facility] Comment on above: Order Comment: Speci men Type: BLOOD SPECIMEN Ordering Facility: [facility] Address: [address] [place] [address] Performed By: #### 2 4321-2, HSTNT, , 2776-07 #### [facility] CLIA [id number] [address] [place] [address] [place] CASE MANAGEMon 07-26-2024 CASE MANAGEM HNO ID: [id number] Author: KRISTIE DIAZ, ? Service: ? Author Type: ? Type: Care Mgt Progress Note Filed: 07/26/2024 11:58 Note Text: CARE MANAGEMENT PROGRESS NOTE SERVICE DATE: 07/26/2024 SERVICE TIME: 11:57 AM LOS: 2 days IMM Follow Up Copy Given: Yes Copy given to:: Patient Method: In Person SIGNATURE: Kristie Diaz CMA PATIENT NAME: Shey Obrien DATE: July 26, 2024 TIME: 11:57 AM Normal [facility] CBC W Auto Differential pane l (Bld)on 07-26-2024 Basophils (Bld) [#/Vol] 10*3/uL Normal <0.11 [facility] Comment on above: Order Comment: Speci men Type: BLOOD SPECIMEN Ordering Facility: [facility] Address: [address] [place] [address] Performed By: #### 2 4321-2, HSTNT, , 2776-07 #### [facility] CLIA [id number] [address] [place] [address] [place] Basophils/100 WBC (Bld) 0.3 % Normal [facility] Comment on above: Order Comment: Speci men Type: BLOOD SPECIMEN Ordering Facility: [facility] Address: [address] [place] [address] Performed By: #### 2 4321-2, HSTNT, , 2776-07 #### [facility] CLIA [id number] [address] [place], [place] [address] [place] Differential cell count method Nom (Bld) Auto Normal [facility] Comment on above: Order Comment: Speci men Type: BLOOD SPECIMEN Ordering Facility: [facility] Address: [address] [place] [address] Performed By: #### 2 4321-2, HSTNT, , 2776-07 #### [facility] CLIA [id number] [address] [place] [address] [place] Eosinophils (Bld) [#/Vol] 0.08 10*3/uL Normal <0.46 [facility] Comment on above: Order Comment: Speci men Type: BLOOD SPECIMEN Ordering Facility: [facility] Address: [address] [place] [address] Performed By: #### 2 4321-2, HSTNT, , 2776-07 #### [facility] CLIA [id number] [address] [place] [address] [place] Eosinophils/100 WBC (Bld) 1.3 % Normal [facility] Comment on above: Order Comment: Speci men Type: BLOOD SPECIMEN Ordering Facility: [facility] Address: [address] [place] [address] Performed By: #### 2 4321-2, HSTNT, , 2776-07 #### [facility] CLIA [id number] [address] [place] [address] [place] Erythrocyte distribution width (RBC) [Ratio] 13.9 % Normal 11.5-15.0 [facility] Comment on above: Order Comment: Speci men Type: BLOOD SPECIMEN Ordering Facility: [facility] Address: [address] [place] [address] Performed By: #### 2 4321-2, HSTNT, , 2776-07 #### [facility] CLIA [id number] [address] [place] [address] [place] Hematocrit (Bld) [Volume fraction] 35.1 % Low 36.0-46.0 [facility] Comment on above: Order Comment: Speci men Type: BLOOD SPECIMEN Ordering Facility: [facility] Address: [address] [place] [address] Performed By: #### 2 4321-2, HSTNT, , 2776-07 #### [facility] CLIA [id number] [address] [place] [address] [place] Hemoglobin (Bld) [Mass/Vol] 12.2 g/dL Normal 11.5-15.5 [facility] Comment on above: Order Comment: Speci men Type: BLOOD SPECIMEN Ordering Facility: [facility] Address: [address] [place] [address] Performed By: #### 2 4321-2, HSTNT, , 2776-07 #### [facility] CLIA [id number] [address] [place] [address] [place] Immature granulocytes (Bld) [#/Vol] 0.04 10*3/uL Normal <0.10 [facility] Comment on above: Order Comment: Speci men Type: BLOOD SPECIMEN Ordering Facility: [facility] Address: [address] [place] [address] Performed By: #### 2 4321-2, HSTNT, , 2776-07 #### [facility] CLIA [id number] [address] [place] [address] [place] Immature granulocytes/100 WBC (Bld) 0.7 % Normal [facility] Comment on above: Order Comment: Speci men Type: BLOOD SPECIMEN Ordering Facility: [facility] Address: [address] [place] [address] Performed By: #### 2 4321-2, HSTNT, , 2776- #### [facility] CLIA [id number] [address] [place] [address] [place] Lymphocytes (Bld) [#/Vol] 1.90 10*3/uL Normal 1.00-4.00 [facility] Comment on above: Order Comment: Speci men Type: BLOOD SPECIMEN Ordering Facility: [facility] Address: [address] [place] [address] Performed By: #### 2 4321-2, HSTNT, , 2776-07 #### [facility] CLIA [id number] [address] [place] [address] [place] Lymphocytes/100 WBC (Bld) 30.9 % Normal [facility] Comment on above: Order Comment: Speci men Type: BLOOD SPECIMEN Ordering Facility: [facility] Address: [address] [place] [address] Performed By: #### 2 4321-2, HSTNT, , 2776-07 #### [facility] CLIA [id number] [address] [place] [address] [place] MCH (RBC) [Entitic mass] 32.9 pg Normal 26.0-34.0 [facility] Comment on above: Order Comment: Speci men Type: BLOOD SPECIMEN Ordering Facility: [facility] Address: [address] [place] [address] Performed By: #### 2 4321-2, HSTNT, , 2776-07 #### [facility] CLIA [id number] [address] [place] [address] [place] MCHC (RBC) [Mass/Vol] 34.8 g/dL Normal 30.5-36.0 [facility] Comment on above: Order Comment: Speci men Type: BLOOD SPECIMEN Ordering Facility: [facility] Address: [address] [place] [address] Performed By: #### 2 4321-2, HSTNT, 04458-7, 2776- #### [facility] CLIA [id number] [address] [place] [address] [place] MCV (RBC) [Entitic vol] 94.6 fL Normal 80.0-100.0 [facility] Comment on above: Order Comment: Speci men Type: BLOOD SPECIMEN Ordering Facility: [facility] Address: [address] [place] [address] Performed By: #### 2 4321-2, HSTNT, 62041-4, 2776- #### [facility] CLIA [id number] [address] [place] [address] [place] Monocytes (Bld) [#/Vol] 0.46 10*3/uL Normal <0.87 [facility] Comment on above: Order Comment: Speci men Type: BLOOD SPECIMEN Ordering Facility: [facility] Address: [address] [place] [address] Performed By: #### 2 4321-2, HSTNT, , 2776- #### [facility] CLIA [id number] [address] [place] [address] [place] Monocytes/100 WBC (Bld) 7.5 % Normal [facility] Comment on above: Order Comment: Speci men Type: BLOOD SPECIMEN Ordering Facility: [facility] Address: [address] [place] [address] Performed By: #### 2 4321-2, HSTNT, , 2776- #### [facility] CLIA [id number] [address] [place] [address] [place] Neutrophils (Bld) [#/Vol] 3.64 10*3/uL Normal 1.45-7.50 [facility] Comment on above: Order Comment: Speci men Type: BLOOD SPECIMEN Ordering Facility: [facility] Address: [address] [place] [address] Performed By: #### 2 4321-2, HSTNT, 87657-8, 2776- #### [facility] CLIA [id number] [address] [place] [address] [place] Neutrophils/100 WBC (Bld) 59.3 % Normal [facility] Comment on above: Order Comment: Speci men Type: BLOOD SPECIMEN Ordering Facility: [facility] Address: [address] [place] [address] Performed By: #### 2 4321-2, HSTNT, , 2776- #### [facility] CLIA [id number] [address] [place] [address] [place] Nucleated RBC (Bld) [#/Vol] 10*3/uL Normal <0.01 [facility] Comment on above: Order Comment: Speci men Type: BLOOD SPECIMEN Ordering Facility: [facility] Address: [address] [place] [address] Performed By: #### 2 4321-2, HSTNT, , 2776- #### [facility] CLIA [id number] [address] [place] [address] [place] Nucleated RBC/100 WBC (Bld) [Ratio] 0.0 /100 WBC Normal [facility] [place] Comment on above: Order Comment: Speci men Type: BLOOD SPECIMEN Ordering Facility: [facility] Address: [address] [place] [address] Performed By: #### 2 4321-2, HSTNT, , 2776- #### [facility] CLIA [id number] [address] [place] [address] [place] Platelet mean volume (Bld) [Entitic vol] 9.9 fL Normal 9.0-12.7 [facility] [place] Comment on above: Order Comment: Speci men Type: BLOOD SPECIMEN Ordering Facility: [facility] Address: [address] [place] [address] Performed By: #### 2 4321-2, HSTNT, 73200-6, 2776- #### [facility] CLIA [id number] [address] [place] [address] [place] Platelets (Bld) [#/Vol] 143 10*3/uL Low 150-400 [facility] [place] Comment on above: Order Comment: Speci men Type: BLOOD SPECIMEN Ordering Facility: [facility] Address: [address] [place] [address] Performed By: #### 2 4321-2, HSTNT, , 2776- #### [facility] CLIA [id number] [address] [place] [address] [place] RBC (Bld) [#/Vol] 3.71 10*6/uL Low 3.90-5.20 [facility] Comment on above: Order Comment: Speci men Type: BLOOD SPECIMEN Ordering Facility: [facility] Address: [address] [place] [address] Performed By: #### 2 4321-2, HSTNT, , 2776- #### [facility] CLIA [id number] [address] [place] [address] [place] WBC (Bld) [#/Vol] 6.14 10*3/uL Normal 3.70-11.00 [facility] Comment on above: Order Comment: Speci men Type: BLOOD SPECIMEN Ordering Facility: [facility] Address: [address] [place] [address] Performed By: #### 2 4321-2, HSTNT, , 2776-07 #### [facility] CLIA [id number] [address] [place] [address] [place] CNCOon 07-26-2024 CNCO Letter Text Normal [facility] [place] CNDSon 07-26-2024 CNDS HNO ID: [id number] Author: KASSY VERDE APRN.DIRECTOR HOME HEALTH Service: General Surgery Author Type: Nurse Practitioner [...] IV access Intubation for surgery Anesthesia administration [facility] COURSE: Shey Obrien is a 73-year-old female with a PMHx of COPD, former smoker, EDWIN, HTN, GERD, dyslipidemia, TIA, memory loss, chronic back pain and insomnia who presented on 07/24/2024 for a paraesophageal hernia repair with Dr. Boyd. See operative report for details. She recovered in the PACU and transferred to the [facility] for the remainder of her postoperative [...] Commonly know (more content not included)... Normal [facility] [place] Magnesium SerPl-mCncon 07-26 Magnesium [Mass/Vol] 2.0 mg/dL Normal 1.7-2.3 [facility] Comment on above: Order Comment: Speci men Type: BLOOD SPECIMEN Ordering Facility: [facility] Address: [address] [place] [address] Performed By: #### 2 4321-2, HSTNT, 10873-3, 2777-1 #### [facility] CLIA [id number] [address] [place] [address] [place] PT EDon 07-26-2024 PT ED HNO ID: [id number] Author: NOREEN RODNEY DTR Service: Nutrition Therapy Author Type: Fine Arts Instructor Type: Patient Education Filed: 07/26/2024 14:04 Note [...] 26, 2024 TIME: 2:04 PM PAGER: Normal [facility] [place] Phosphate SerPl-mCncon 07-26 Phosphate [Mass/Vol] 2.5 mg/dL Low 2.7-4.8 [facility] Comment on above: Order Comment: Fabiola bliss Type: BLOOD SPECIMEN Ordering Facility: [facility] Address: [address] [place] [address] Performed By: #### 2 4321-2, HSTNT, 04677-9, 2776- #### [facility] CLIA [id number] [address] [place] [address] [place] HIGH SENSITIVITY TROPONIN To n 07-25-2024 Troponin T.cardiac High sensitivity method [Mass/Vol] 12 ng/L High <12 [facility] [place] Comment on above: Order Comment: Fabiola bliss Type: BLOOD SPECIMEN Ordering Facility: [facility] Address: [address] [place] [address] Performed By: #### 2 4321-2, HSTNT, 33286-4, 2776- #### [facility] CLIA [id number] [address] [place] [address] [place] XR UPPER GI [...] (min:sec). Air kerma: 38.9 mGy. RESULT: Preliminary clean up worker: Gastric distention. No dilated bowel in the [...] ESOPHAGEAL TRANSIT, LIKELY RELATED TO POSTOPERATIVE EDEMA. Metal Crafts Teacher: KODY Transcribe Date/Time: Jul 25 2024 10:06A Dictated by : NAHID PACHECO MD This examination was interpreted and the report reviewed and electronically signed by: MARTHA CATALAN MD on Jul 25 2024 10:13AM EST [id number] Normal [facility] [place] ANES POSTPROC EVALon 025 ANES POSTPROC EVAL HNO ID: [id number] Author: FLOR SNOW MD Service: ? Author Type: Physician Type: Anesthesia Postprocedure Evaluation Filed: 07/24/2024 15:38 Note Text: POST ANESTHESIA EVALUATION NOTE : 1950 Procedure Summary Date: 07/24/24 Room / Location: [address] [facility] Anesthesia Start: 1055 Anesthesia [...] July 24, 2024 TIME: 3:38 PM CSN: [id number] Normal [facility] [place] ANES PRE-OPon 07-24-2024 ANES PRE-OP HNO ID: [id number] Author: FLOR SNOW MD Service: ? Author [...] Vitals Value Taken Time BP 152/67 07/24/24 09 Pulse 71 07/24/24900 Resp 18 07/24/24900 Temp [...] July 24, 2024 TIME: 9:15 AM CSN: [id number] Normal [facility] [place] BRIEF OP NOTon 07-24-2024 BRIEF OP NOT HNO ID: [id number] Author: YAN MOSER, ? Service: General Surgery Author Type: Physician Type: Brief Op Note Filed: 07/24/2024 14:16 Note Text: BRIEF OPERATIVE / PROCEDURE NOTE LOG ID: [id number] SURGERY/PROCEDURE DATE: 07/24/2024 INCISION/PROCEDURE START TIME: 11:37 AM INCISION CLOSE/PROCEDURE END TIME: 2:12 PM SURGEON(S)/PROCEDURALI ST(S) AND SFDC ARCHITECT(S): Surgeons and Role: * Xavier Boyd [...] 24, 2024 TIME: 2:15 PM PAGER/CONTACT #: [phone] Normal [facility] [place] Basic metabolic 2000 panelon 07-24-2024 Anion gap [Moles/Vol] 15 mmol/L Normal 8-15 [facility] Comment on above: Order Comment: Speci men Type: BLOOD SPECIMEN Ordering Facility: [facility] Address: [address] [place] [address] Performed By: #### 2 4321-2, HSTNT, , 2776- #### [facility] CLIA [id number] [address] [place] [address] [place] Calcium [Mass/Vol] 9.3 mg/dL Normal 8.5-10.2 [facility] Comment on above: Order Comment: Speci men Type: BLOOD SPECIMEN Ordering Facility: [facility] Address: [address] [place] [address] Performed By: #### 2 4321-2, HSTNT, , 2776-07 #### [facility] CLIA [id number] [address] [place] [address] [place] Chloride [Moles/Vol] 105 mmol/L Normal 98-107 [facility] Comment on above: Order Comment: Speci men Type: BLOOD SPECIMEN Ordering Facility: [facility] Address: [address] [place] [address] Performed By: #### 2 4321-2, HSTNT, , 2776- #### [facility] CLIA [id number] [address] [place] [address] [place] CO2 [Moles/Vol] 21 mmol/L Low 22-30 [facility] [place] Comment on above: Order Comment: Speci men Type: BLOOD SPECIMEN Ordering Facility: [facility] Address: [address] [place] [address] Performed By: #### 2 4321-2, HSTNT, , 2776-07 #### [facility] CLIA [id number] [address] [place] [address] [place] Creatinine [Mass/Vol] 0.83 mg/dL Normal 0.58-0.96 [facility] Comment on above: Order Comment: Speci men Type: BLOOD SPECIMEN Ordering Facility: [facility] Address: [address] [place] [address] Performed By: #### 2 4321-2, HSTNT, , 2776-07 #### [facility] CLIA [id number] [address] [place] [address] [place] Creatinine and Glomerular filtration rate.predicted panel (S/P/Bld) 75 mL/min/1.73m??? Normal >=60 [facility] [place] Comment on above: Order Comment: Fabiola bliss Type: BLOOD SPECIMEN Ordering Facility: [facility] Address: [address] [place] [address] Result Comment: Ira mated Glomerular Filtration Rate [...] 4321-2, HSTNT, , 2776-07 #### [facility] CLIA [id number] [address] [place] [address] [place] Glucose [Mass/Vol] 171 mg/dL High 74-99 [facility] Comment on above: Order Comment: Jessei izaiah Type: BLOOD SPECIMEN Ordering Facility: [facility] Address: [address] [place] [address] Result Comment: The [place] [employer] (ADA) provides guidance for cutoff [...] Standards of Medical Care in Diabetes 2016, [place] [employer]. Diabetes Care. 2016.39(Suppl 1). Performed By: #### 2 4321-2, HSTNT, , 2776-07 #### [facility] CLIA [id number] [address] [place] [address] [place] Potassium [Moles/Vol] 4.0 mmol/L Normal 3.7-5.1 [facility] Comment on above: Order Comment: Speci men Type: BLOOD SPECIMEN Ordering Facility: [facility] Address: [address] [place] [address] Performed By: #### 2 4321-2, HSTNT, , 2776-07 #### [facility] CLIA [id number] [address] [place] [address] [place] Sodium [Moles/Vol] 141 mmol/L Normal 136-144 [facility] Comment on above: Order Comment: Speci men Type: BLOOD SPECIMEN Ordering Facility: [facility] Address: [address] [place] [address] Performed By: #### 2 4321-2, HSTNT, , 2776-07 #### [facility] CLIA [id number] [address] [place] [address] [place] Urea nitrogen [Mass/Vol] 10 mg/dL Normal 7-21 [facility] [place] Comment on above: Order Comment: Speci men Type: BLOOD SPECIMEN Ordering Facility: [facility] Address: [address] [place] [address] Performed By: #### 2 4321-2, HSTNT, 03754-3, 2777-1 #### [facility] CLIA [id number] [address] [place] [address] [place] CBC W Auto Differential pane l (Bld)on 07-24-2024 Basophils (Bld) [#/Vol] 10*3/uL Normal <0.11 [facility] [place] Comment on above: Order Comment: Speci men Type: BLOOD SPECIMEN Ordering Facility: [facility] Address: [address] [place] [address] Performed By: #### 5 7021-8 #### [facility] CLIA [id number] [address] [place] [address] [place] Basophils/100 WBC (Bld) 0.3 % Normal [facility] [place] Comment on above: Order Comment: Speci men Type: BLOOD SPECIMEN Ordering Facility: [facility] Address: [address] [place] [address] Performed By: #### 5 7021-8 #### [facility] CLIA [id number] [address] [place] [address] [place] Differential cell count method Nom (Bld) Auto Normal [facility] [place] Comment on above: Order Comment: Speci men Type: BLOOD SPECIMEN Ordering Facility: [facility] Address: [address] [place] [address] Performed By: #### 5 7021-8 #### [facility] CLIA [id number] [address] [place] [address] [place] Eosinophils (Bld) [#/Vol] 10*3/uL Normal <0.46 [facility] [place] Comment on above: Order Comment: Speci men Type: BLOOD SPECIMEN Ordering Facility: [facility] Address: [address] [place] [address] Performed By: #### 5 7021-8 #### [facility] CLIA [id number] [address] [place] [address] [place] Eosinophils/100 WBC (Bld) 0.0 % Normal [facility] [place] Comment on above: Order Comment: Speci men Type: BLOOD SPECIMEN Ordering Facility: [facility] Address: [address] [place] [address] Performed By: #### 5 7021-8 #### [facility] CLIA [id number] [address] [place] [address] [place] Erythrocyte distribution width (RBC) [Ratio] 13.9 % Normal 11.5-15.0 [facility] [place] Comment on above: Order Comment: Speci men Type: BLOOD SPECIMEN Ordering Facility: [facility] Address: [address] [place] [address] Performed By: #### 5 7021-8 #### [facility] CLIA [id number] [address] [place] [address] [place] Hematocrit (Bld) [Volume fraction] 38.8 % Normal 36.0-46.0 [facility] [place] Comment on above: Order Comment: Speci men Type: BLOOD SPECIMEN Ordering Facility: [facility] Address: [address] [place] [address] Performed By: #### 5 7021-8 #### [facility] CLIA [id number] [address] [place] [address] [place] Hemoglobin (Bld) [Mass/Vol] 13.4 g/dL Normal 11.5-15.5 [facility] [place] Comment on above: Order Comment: Speci men Type: BLOOD SPECIMEN Ordering Facility: [facility] Address: [address] [place] [address] Performed By: #### 5 7021-8 #### [facility] CLIA [id number] [address] [place] [address] [place] Immature granulocytes (Bld) [#/Vol] 10*3/uL Normal <0.10 [facility] [place] Comment on above: Order Comment: Speci men Type: BLOOD SPECIMEN Ordering Facility: [facility] Address: [address] [place] [address] Performed By: #### 5 7021-8 #### [facility] CLIA [id number] [address] [place] [address] [place] Immature granulocytes/100 WBC (Bld) 0.3 % Normal [facility] [place] Comment on above: Order Comment: Speci men Type: BLOOD SPECIMEN Ordering Facility: [facility] Address: [address] [place] [address] Performed By: #### 5 7021-8 #### [facility] CLIA [id number] [address] [place] [address] [place] Lymphocytes (Bld) [#/Vol] 0.48 10*3/uL Low 1.00-4.00 [facility] [place] Comment on above: Order Comment: Speci men Type: BLOOD SPECIMEN Ordering Facility: [facility] Address: [address] [place] [address] Performed By: #### 5 7021-8 #### [facility] CLIA [id number] [address] [place] [address] [place] Lymphocytes/100 WBC (Bld) 6.7 % Normal [facility] [place] Comment on above: Order Comment: Speci men Type: BLOOD SPECIMEN Ordering Facility: [facility] Address: [address] [place] [address] Performed By: #### 5 7021-8 #### [facility] CLIA [id number] [address] [place] [address] [place] MCH (RBC) [Entitic mass] 32.5 pg Normal 26.0-34.0 [facility] [place] Comment on above: Order Comment: Speci men Type: BLOOD SPECIMEN Ordering Facility: [facility] Address: [address] [place] [address] Performed By: #### 5 7021-8 #### [facility] CLIA [id number] [address] [place] [address] [place] MCHC (RBC) [Mass/Vol] 34.5 g/dL Normal 30.5-36.0 [facility] Comment on above: Order Comment: Speci men Type: BLOOD SPECIMEN Ordering Facility: [facility] Address: [address] [place] [address] Performed By: #### 5 7021-8 #### [facility] CLIA [id number] [address] [place] [address] [place] MCV (RBC) [Entitic vol] 94.2 fL Normal 80.0-100.0 [facility] [place] Comment on above: Order Comment: Speci men Type: BLOOD SPECIMEN Ordering Facility: [facility] Address: [address] [place] [address] Performed By: #### 5 7021-8 #### [facility] CLIA [id number] [address] [place] [address] [place] Monocytes (Bld) [#/Vol] 0.23 10*3/uL Normal <0.87 [facility] [place] Comment on above: Order Comment: Speci men Type: BLOOD SPECIMEN Ordering Facility: [facility] Address: [address] [place] [address] Performed By: #### 5 7021-8 #### [facility] CLIA [id number] [address] [place] [address] [place] Monocytes/100 WBC (Bld) 3.2 % Normal [facility] [place] Comment on above: Order Comment: Speci men Type: BLOOD SPECIMEN Ordering Facility: [facility] Address: [address] [place] [address] Performed By: #### 5 7021-8 #### [facility] CLIA [id number] [address] [place] [address] [place] Neutrophils (Bld) [#/Vol] 6.43 10*3/uL Normal 1.45-7.50 [facility] [place] Comment on above: Order Comment: Speci men Type: BLOOD SPECIMEN Ordering Facility: [facility] Address: [address] [place] [address] Performed By: #### 5 7021-8 #### [facility] CLIA [id number] [address] [place] [address] [place] Neutrophils/100 WBC (Bld) 89.5 % Normal [facility] [place] Comment on above: Order Comment: Speci men Type: BLOOD SPECIMEN Ordering Facility: [facility] Address: [address] [place] [address] Performed By: #### 5 7021-8 #### [facility] CLIA [id number] [address] [place] [address] [place] Nucleated RBC (Bld) [#/Vol] 10*3/uL Normal <0.01 [facility] [place] Comment on above: Order Comment: Speci men Type: BLOOD SPECIMEN Ordering Facility: [facility] Address: [address] [place] [address] Performed By: #### 5 7021-8 #### [facility] CLIA [id number] [address] [place] [address] [place] Nucleated RBC/100 WBC (Bld) [Ratio] 0.0 /100 WBC Normal [facility] [place] Comment on above: Order Comment: Speci men Type: BLOOD SPECIMEN Ordering Facility: [facility] Address: [address] [place] [address] Performed By: #### 5 7021-8 #### [facility] CLIA [id number] [address] [place] [address] [place] Platelet mean volume (Bld) [Entitic vol] 10.0 fL Normal 9.0-12.7 [facility] [place] Comment on above: Order Comment: Speci men Type: BLOOD SPECIMEN Ordering Facility: [facility] Address: [address] [place] [address] Performed By: #### 5 7021-8 #### [facility] CLIA [id number] [address] [place] [address] [place] Platelets (Bld) [#/Vol] 144 10*3/uL Low 150-400 [facility] [place] Comment on above: Order Comment: Speci men Type: BLOOD SPECIMEN Ordering Facility: [facility] Address: [address] [place] [address] Performed By: #### 5 7021-8 #### [facility] CLIA [id number] [address] [place] [address] [place] RBC (Bld) [#/Vol] 4.12 10*6/uL Normal 3.90-5.20 [facility] Comment on above: Order Comment: Speci men Type: BLOOD SPECIMEN Ordering Facility: [facility] Address: [address] [place] [address] Performed By: #### 5 7021-8 #### [facility] CLIA [id number] [address] [place] [address] [place] WBC (Bld) [#/Vol] 7.18 10*3/uL Normal 3.70-11.00 [facility] Comment on above: Order Comment: Speci men Type: BLOOD SPECIMEN Ordering Facility: [facility] Address: [address] [place] [address] Performed By: #### 5 7021-8 #### [facility] CLIA [id number] [address] [place] [address] [place] HIGH SENSITIVITY TROPONIN To n 07-24-2024 Troponin T.cardiac High sensitivity method [Mass/Vol] 8 ng/L Normal <12 [facility] [place] Comment on above: Order Comment: Speci men Type: BLOOD SPECIMEN Ordering Facility: [facility] Address: [address] [place] [address] Performed By: #### 2 4321-2, HSTNT, 31947-4, 2777-1 #### [facility] CLIA [id number] [address] [place] [address] [place] Magnesium SerPl-mCncon 07-24 Magnesium [Mass/Vol] 1.7 mg/dL Normal 1.7-2.3 [facility] Comment on above: Order Comment: Speci men Type: BLOOD SPECIMEN Ordering Facility: [facility] Address: [address] [place] [address] Performed By: #### 2 4321-2, HSTNT, 03087-0, 2777-1 #### [facility] CLIA [id number] [address] [place] [address] [id number] [place] [address] OF [facility] OPERATIVE NOon 07-24-2024 OPERATIVE NO HNO ID: [id number] Author: XAVIER BOYD MD Service: General Surgery Author Type: Physician Type: Operative Report Filed: 07/24/2024 14:31 Note Text: OPERATIVE/PROCEDURE REPORT LOG ID: [id number] SURGERY/PROCEDURE DATE: 07/24/2024 INCISION/PROCEDURE START TIME: 11:37 AM INCISION CLOSE/PROCEDURE END TIME: 2:12 PM SURGEON(S)/PROCEDURALI ST(S) AND [facility] ARCHITECT(S): Surgeons and Role: * Xavier Boyd [...] the left and right subcostal regions. An internal medicine physician assistant 5 mm trocar was placed in [...] required to assist with this case. The internal medicine physician assistant performed retraction and assisted with exposure. PRE-OP/PRE-PROCEDURE DIAGNOSIS: Type III paraesophageal hernia, symptomatic POST-OP/POST-PROCEDURE DIAGNOSIS: Same as Preop ESTIMATED BLOOD LOSS: 30 mls SPECIMENS: None IMPLANTABLE DEVICES: NONE DRAINS: None COMPLICATIONS: None CLOSURE TECHNIQUE: Primary PARTICIPATION IN SURGERY/PROCEDURE: I/primary surgeon/proceduralist performed the procedure with assistance. SIGNATURE: Xavier Boyd MD PATIENT NAME: Shey Obrien DATE: July 24, 2024 TIME: 2:27 PM Normal [facility] Phosphate SerPl-mCncon 07-24 Phosphate [Mass/Vol] 3.6 mg/dL Normal 2.7-4.8 [facility] Comment on above: Order Comment: Speci men Type: BLOOD SPECIMEN Ordering Facility: [facility] Address: [address] [place] [address] Performed By: #### 2 4321-2, HSTNT, , 2776-07 #### [facility] CLIA [id number] [address] [place] [address] [place] CBC W Auto Differential pane l (Bld)on 07-23-2024 Basophils (Bld) [#/Vol] 0.04 10*3/uL Normal <0.11 [facility] Comment on above: Order Comment: Speci men Type: BLOOD SPECIMEN Ordering Facility: [facility] Address: [address] [place] [address] Performed By: #### 2 4321-2, HSTNT, , 2776-07 #### [facility] CLIA [id number] [address] [place] [address] [place] Basophils/100 WBC (Bld) 0.8 % Normal [facility] Comment on above: Order Comment: Speci men Type: BLOOD SPECIMEN Ordering Facility: [facility] Address: [address] [place] [address] Performed By: #### 2 4321-2, HSTNT, , 2776-07 #### [facility] CLIA [id number] [address] [place] [address] [place] Differential cell count method Nom (Bld) Auto Normal [facility] Comment on above: Order Comment: Speci men Type: BLOOD SPECIMEN Ordering Facility: [facility] Address: [address] [place] [address] Performed By: #### 2 4321-2, HSTNT, , 2776-07 #### [facility] CLIA [id number] [address] [place] [address] [place] Eosinophils (Bld) [#/Vol] 0.18 10*3/uL Normal <0.46 [facility] Comment on above: Order Comment: Speci men Type: BLOOD SPECIMEN Ordering Facility: [facility] Address: [address] [place] [address] Performed By: #### 2 4321-2, HSTNT, , 2776-07 #### [facility] CLIA [id number] [address] [place] [address] [place] Eosinophils/100 WBC (Bld) 3.7 % Normal [facility] Comment on above: Order Comment: Speci men Type: BLOOD SPECIMEN Ordering Facility: [facility] Address: [address] [place] [address] Performed By: #### 2 4321-2, HSTNT, , 2776-07 #### [facility] CLIA [id number] [address] [place] [address] [place] Erythrocyte distribution width (RBC) [Ratio] 13.9 % Normal 11.5-15.0 [facility] Comment on above: Order Comment: Speci men Type: BLOOD SPECIMEN Ordering Facility: [facility] Address: [address] [place] [address] Performed By: #### 2 4321-2, HSTNT, , 2776-07 #### [facility] CLIA [id number] [address] [place] [address] [place] Hematocrit (Bld) [Volume fraction] 39.0 % Normal 36.0-46.0 [facility] Comment on above: Order Comment: Speci men Type: BLOOD SPECIMEN Ordering Facility: [facility] Address: [address] [place] [address] Performed By: #### 2 4321-2, HSTNT, , 2776- #### [facility] CLIA [id number] [address] [place] [address] [place] Hemoglobin (Bld) [Mass/Vol] 13.4 g/dL Normal 11.5-15.5 [facility] Comment on above: Order Comment: Speci men Type: BLOOD SPECIMEN Ordering Facility: [facility] Address: [address] [place] [address] Performed By: #### 2 4321-2, HSTNT, , 2776- #### [facility] CLIA [id number] [address] [place] [address] [place] Immature granulocytes (Bld) [#/Vol] 10*3/uL Normal <0.10 [facility] Comment on above: Order Comment: Speci men Type: BLOOD SPECIMEN Ordering Facility: [facility] Address: [address] [place] [address] Performed By: #### 2 4321-2, HSTNT, , 2776-07 #### [facility] CLIA [id number] [address] [place] [address] [place] Immature granulocytes/100 WBC (Bld) 0.4 % Normal [facility] Comment on above: Order Comment: Speci men Type: BLOOD SPECIMEN Ordering Facility: [facility] Address: [address] [place] [address] Performed By: #### 2 4321-2, HSTNT, , 2776- #### [facility] CLIA [id number] [address] [place] [address] [place] Lymphocytes (Bld) [#/Vol] 2.00 10*3/uL Normal 1.00-4.00 [facility] Comment on above: Order Comment: Speci men Type: BLOOD SPECIMEN Ordering Facility: [facility] Address: [address] [place] [address] Performed By: #### 2 4321-2, HSTNT, , 2776- #### [facility] CLIA [id number] [address] [place] [address] [place] Lymphocytes/100 WBC (Bld) 41.3 % Normal [facility] Comment on above: Order Comment: Speci men Type: BLOOD SPECIMEN Ordering Facility: [facility] Address: [address] [place] [address] Performed By: #### 2 4321-2, HSTNT, , 2776- #### [facility] CLIA [id number] [address] [place] [address] [place] MCH (RBC) [Entitic mass] 32.5 pg Normal 26.0-34.0 [facility] Comment on above: Order Comment: Speci men Type: BLOOD SPECIMEN Ordering Facility: [facility] Address: [address] [place] [address] Performed By: #### 2 4321-2, HSTNT, , 2776- #### [facility] CLIA [id number] [address] [place] [address] [place] MCHC (RBC) [Mass/Vol] 34.4 g/dL Normal 30.5-36.0 [facility] Comment on above: Order Comment: Speci men Type: BLOOD SPECIMEN Ordering Facility: [facility] Address: [address] [place] [address] Performed By: #### 2 4321-2, HSTNT, , 2776- #### [facility] CLIA [id number] [address] [place] [address] [place] MCV (RBC) [Entitic vol] 94.7 fL Normal 80.0-100.0 [facility] Comment on above: Order Comment: Speci men Type: BLOOD SPECIMEN Ordering Facility: [facility] Address: [address] [place] [address] Performed By: #### 2 4321-2, HSTNT, 10227-2, 2776- #### [facility] CLIA [id number] [address] [place] [address] [place] Monocytes (Bld) [#/Vol] 0.30 10*3/uL Normal <0.87 [facility] Comment on above: Order Comment: Speci men Type: BLOOD SPECIMEN Ordering Facility: [facility] Address: [address] [place] [address] Performed By: #### 2 4321-2, HSTNT, , 2776- #### [facility] CLIA [id number] [address] [place] [address] [place] Monocytes/100 WBC (Bld) 6.2 % Normal [facility] Comment on above: Order Comment: Speci men Type: BLOOD SPECIMEN Ordering Facility: [facility] Address: [address] [place] [address] Performed By: #### 2 4321-2, HSTNT, , 2776- #### [facility] CLIA [id number] [address] [place] [address] [place] Neutrophils (Bld) [#/Vol] 2.30 10*3/uL Normal 1.45-7.50 [facility] Comment on above: Order Comment: Speci men Type: BLOOD SPECIMEN Ordering Facility: [facility] Address: [address] [place] [address] Performed By: #### 2 4321-2, HSTNT, , 2776- #### [facility] CLIA [id number] [address] [place] [address] [place] Neutrophils/100 WBC (Bld) 47.6 % Normal [facility] Comment on above: Order Comment: Speci men Type: BLOOD SPECIMEN Ordering Facility: [facility] Address: [address] [place] [address] Performed By: #### 2 4321-2, HSTNT, , 2776- #### [facility] CLIA [id number] [address] [place] [address] [place] Nucleated RBC (Bld) [#/Vol] 10*3/uL Normal <0.01 [facility] Comment on above: Order Comment: Speci men Type: BLOOD SPECIMEN Ordering Facility: [facility] Address: [address] [place] [address] Performed By: #### 2 4321-2, HSTNT, , 2776-07 #### [facility] CLIA [id number] [address] [place] [address] [place] Nucleated RBC/100 WBC (Bld) [Ratio] 0.0 /100 WBC Normal [facility] Comment on above: Order Comment: Speci men Type: BLOOD SPECIMEN Ordering Facility: [facility] Address: [address] [place] [address] Performed By: #### 2 4321-2, HSTNT, , 2776- #### [facility] CLIA [id number] [address] [place] [address] [place] Platelet mean volume (Bld) [Entitic vol] 10.2 fL Normal 9.0-12.7 [facility] Comment on above: Order Comment: Speci men Type: BLOOD SPECIMEN Ordering Facility: [facility] Address: [address] [place] [address] Performed By: #### 2 4321-2, HSTNT, , 2776- #### [facility] CLIA [id number] [address] [place], [place] [address] [place] Platelets (Bld) [#/Vol] 169 10*3/uL Normal 150-400 [facility] Comment on above: Order Comment: Speci men Type: BLOOD SPECIMEN Ordering Facility: [facility] Address: [address] [place] [address] Performed By: #### 2 4321-2, HSTNT, 45393-3, 2776- #### [facility] CLIA [id number] [address] [place] [address] [place] RBC (Bld) [#/Vol] 4.12 10*6/uL Normal 3.90-5.20 [facility] Comment on above: Order Comment: Speci men Type: BLOOD SPECIMEN Ordering Facility: [facility] Address: [address] [place] [address] Performed By: #### 2 4321-2, HSTNT, , 2776- #### [facility] CLIA [id number] [address] [place] [address] [place] WBC (Bld) [#/Vol] 4.84 10*3/uL Normal 3.70-11.00 [facility] Comment on above: Order Comment: Speci men Type: BLOOD SPECIMEN Ordering Facility: [facility] Address: [address] [place] [address] Performed By: #### 2 4321-2, HSTNT, , 2776- #### [facility] CLIA [id number] [address] [place] [address] [place] CCF CBC W AUTO DIFF BLDon Basophils/100 WBC (Bld) 0.8 % [facility] BASOPHILS # BLD AUTO 0.04 [facility] DIFFERENTIAL METHOD BLD Auto [facility] EOSINOPHIL # BLD AUTO 0.18 [facility] LYMPHOCYTES # BLD AUTO 2 [facility] MONOCYTES # BLD AUTO 0.3 [facility] NEUTROPHILS # BLD AUTO 2.3 [facility] NRBC # BLD AUTO <0.01 [facility] NRBC/100 WBC BLD-RTO 0 /100 WBC [facility] PLATELET # BLD AUTO 169 [facility] PMV BLD AUTO 10.2 fL 9.0 - 12.7 fL [facility] WBC # BLD AUTO 4.84 [facility] Eosinophils/100 WBC (Bld) 3.7 % [facility] Erythrocyte distribution width (RBC) [Ratio] 13.9 % 11.5 - 15.0 % [facility] Hematocrit (Bld) [Volume fraction] 39 % 36.0 - 46.0 % [facility] Hemoglobin (Bld) [Mass/Vol] 13.4 g/dL 11.5 - 15.5 g/dL [facility] IMM GRANULOCYTES # BLD AUTO <0.03 [facility] IMM GRANULOCYTES/LEUK NFR BLD AUTO 0.4 % [facility] Lymphocytes/100 WBC (Bld) 41.3 % [facility] MCH (RBC) [Entitic mass] 32.5 pg 26.0 - 34.0 pg [facility] MCHC (RBC) [Mass/Vol] 34.4 g/dL 30.5 - 36.0 g/dL [facility] MCV (RBC) [Entitic vol] 94.7 fL 80.0 - 100.0 fL [facility] Monocytes/100 WBC (Bld) 6.2 % [facility] Neutrophils/100 WBC (Bld) 47.6 % [facility] RBC (Bld) [#/Vol] 4.12 10*6/uL 3.90 - 5.2 0 m/uL [facility] Specimen Type: BLOOD SPECIMEN Ordering Facility: [facility] Address: [address] [place] [address] Original Ordering Provider: KATARZYNA WHEAT [facility] CONFIRM BLOOD TYPEon 025 ABO B Normal [facility] Comment on above: Order Comment: Speci men Type: BLOOD SPECIMEN Ordering Facility: [facility] Address: [address] [place] [address] Performed By: #### 2 4321-2, HSTNT, 56089-9, 2777-1 #### [facility] CLIA [id number] [address] [place], [place] [address] [place] Rh Nom (Bld) Positive Normal [facility] Comment on above: Order Comment: Speci men Type: BLOOD SPECIMEN Ordering Facility: [facility] Address: [address] [place] [address] Performed By: #### 2 4321-2, HSTNT, , 2777-1 #### [facility] CLIA [id number] [address] [place], [place] [address] [place] ABO group Nom (Bld) B [facility] Rh Nom (Bld) Positive [facility] Comprehensive metabolic 2000 panelon 07-23-2024 Albumin [Mass/Vol] 4.2 g/dL Normal 3.9-4.9 [facility] Comment on above: Order Comment: Speci men Type: BLOOD SPECIMEN Ordering Facility: [facility] Address: [address] [place] [address] Performed By: #### 2 4321-2, HSTNT, , 2776- #### [facility] CLIA [id number] [address] [place] [address] [place] ALP [Catalytic activity/Vol] 111 U/L Normal 34-123 [facility] Comment on above: Order Comment: Speci men Type: BLOOD SPECIMEN Ordering Facility: [facility] Address: [address] [place] [address] Performed By: #### 2 4321-2, HSTNT, , 277- #### [facility] CLIA [id number] [address] [place], [place] [address] [place] ALT [Catalytic activity/Vol] 26 U/L Normal 7-38 [facility] Comment on above: Order Comment: Speci men Type: BLOOD SPECIMEN Ordering Facility: [facility] Address: [address] [place] [address] Performed By: #### 2 4321-2, HSTNT, , 2776-07 #### [facility] CLIA [id number] [address] [place] [address] [place] Anion gap [Moles/Vol] 10 mmol/L Normal 8-15 [facility] Comment on above: Order Comment: Speci men Type: BLOOD SPECIMEN Ordering Facility: [facility] Address: [address] [place] [address] Performed By: #### 2 4321-2, HSTNT, , 2776-07 #### [facility] CLIA [id number] [address] [place] [address] [place] AST [Catalytic activity/Vol] 28 U/L Normal 13-35 [facility] Comment on above: Order Comment: Speci men Type: BLOOD SPECIMEN Ordering Facility: [facility] Address: [address] [place] [address] Performed By: #### 2 4321-2, HSTNT, , 2776-07 #### [facility] CLIA [id number] [address] [place] [address] [place] Bilirubin [Mass/Vol] 0.5 mg/dL Normal 0.2-1.3 [facility] Comment on above: Order Comment: Speci men Type: BLOOD SPECIMEN Ordering Facility: [facility] Address: [address] [place] [address] Performed By: #### 2 4321-2, HSTNT, , 2776-07 #### [facility] CLIA [id number] [address] [place] [address] [place] Calcium [Mass/Vol] 9.4 mg/dL Normal 8.5-10.2 [facility] Comment on above: Order Comment: Speci men Type: BLOOD SPECIMEN Ordering Facility: [facility] Address: [address] [place] [address] Performed By: #### 2 4321-2, HSTNT, , 2776-07 #### [facility] CLIA [id number] [address] [place] [address] [place] Chloride [Moles/Vol] 108 mmol/L High 98-107 [facility] Comment on above: Order Comment: Speci men Type: BLOOD SPECIMEN Ordering Facility: [facility] Address: [address] [place] [address] Performed By: #### 2 4321-2, HSTNT, , 2776-07 #### [facility] CLIA [id number] [address] [place] [address] [place] CO2 [Moles/Vol] 23 mmol/L Normal 22-30 [facility] Comment on above: Order Comment: Speci men Type: BLOOD SPECIMEN Ordering Facility: [facility] Address: [address] [place] [address] Performed By: #### 2 4321-2, HSTNT, , 2776-07 #### [facility] CLIA [id number] [address] [place] [address] [place] Creatinine [Mass/Vol] 0.99 mg/dL High 0.58-0.96 [facility] Comment on above: Order Comment: Speci men Type: BLOOD SPECIMEN Ordering Facility: [facility] Address: [address] [place] [address] Performed By: #### 2 4321-2, HSTNT, , 2776-07 #### [facility] CLIA [id number] [address] [place] [address] [place] Creatinine and Glomerular filtration rate.predicted panel (S/P/Bld) 61 mL/min/1.73m??? Normal >=60 [facility] Comment on above: Order Comment: Speci men Type: BLOOD SPECIMEN Ordering Facility: [facility] Address: [address] [place] [address] Result Comment: Ira mated Glomerular Filtration Rate [...] 4321-2, HSTNT, , 2776-07 #### [facility] CLIA [id number] [address] [place] [address] [place] Glucose [Mass/Vol] 155 mg/dL High 74-99 [facility] Comment on above: Order Comment: Fabiola bliss Type: BLOOD SPECIMEN Ordering Facility: [facility] Address: [address] [place] [address] Result Comment: The [place] [employer] (ADA) provides guidance for cutoff [...] Standards of Medical Care in Diabetes 2016, [place] [employer]. Diabetes Care. 2016.39(Suppl 1). Performed By: #### 2 4321-2, HSTNT, , 2776-07 #### [facility] CLIA [id number] [address] [place] [address] [place] Potassium [Moles/Vol] 4.3 mmol/L Normal 3.7-5.1 [facility] Comment on above: Order Comment: Fabiola bliss Type: BLOOD SPECIMEN Ordering Facility: [facility] Address: [address] [place] [address] Performed By: #### 2 4321-2, HSTNT, , 2776-07 #### [facility] CLIA [id number] [address] [place] [address] [place] Protein [Mass/Vol] 6.9 g/dL Normal 6.3-8.0 [facility] Comment on above: Order Comment: Speci men Type: BLOOD SPECIMEN Ordering Facility: [facility] Address: [address] [place] [address] Performed By: #### 2 4321-2, HSTNT, , 2776-07 #### [facility] CLIA [id number] [address] [place] [address] [place] Sodium [Moles/Vol] 141 mmol/L Normal 136-144 [facility] Comment on above: Order Comment: Speci men Type: BLOOD SPECIMEN Ordering Facility: [facility] Address: [address] [place] [address] Performed By: #### 2 4321-2, HSTNT, , 2776-07 #### [facility] IA [id number] [address] [place] [address] [place] Urea nitrogen [Mass/Vol] 13 mg/dL Normal 7-21 [facility] Comment on above: Order Comment: Speci men Type: BLOOD SPECIMEN Ordering Facility: [facility] Address: [address] [place] [address] Performed By: #### 2 4321-2, HSTNT, , 2776-07 #### [facility] CLIA [id number] [address] [place], [place] [id number] [place] ECG COMPLETEon 07-23-2024 ECG COMPLETE Ventricular Rate : 6 6 BPM Atrial Rate : 66 BPM P-R Interval : 158 ms QRS Duration : 78 ms Q-T Interval : 404 ms QTC Calculation(Bazett) : 423 ms Calculated P [place] : 32 degrees Calculated R [place] : 14 degrees Calculated T [place] : 54 degrees NORMAL SINUS RHYTHM NORMAL ECG Confirmed by MD HAKAN, HEBA ([id number]) on 07/29/2024 12:16:17 PM NAME : SHEY OBRIEN PID : [id number] : 1950 Gender : Female Race : ORD : [id number] Procedure Date : Jul 23 2024 12:08:10 Edit Date : Jul 29 2024 12:16:18 Diagnosis: NORMAL SINUS RHYTHM NORMAL ECG Confirmed by MD MCCLENDON HEBA ([id number]) on 07/29/2024 12:16:17 PM Test Reason : Location : 119 : A17 A17 Overread By : MD MCCLENDON HEBA Edited By : MD MCCLENDON HEBA Referred By : XAVIER BOYD Acquired by : SADE HA [facility] HISTORY PHYSICALon HISTORY PHYSICAL HNO ID: [id number] Author: JAMIL DELACRUZ PA-C Service: ? Author Type: Physician Bakery Clerk Type: H&P Filed: 07/23/2024 14:03 Note Text: [...] anticoagulation therap (more content not included)... Normal [facility] PT panel Coag (PPP)on 2024 INR Coag (PPP) [Relative time] 1.1 {INR} Normal 0.9-1.3 [facility] Comment on above: Order Comment: Speci izaiah Type: BLOOD SPECIMEN Ordering Facility: [facility] Address: [address] [place] [address] Result Comment: Francesco min K Antagonist (VKA) Therapeutic Range: INR 2 to 3 (Target INR of 2.5) Note: For patients treated with VKA drugs, such as warfarin, the [employer] 2012 Guideline recommends [...] Chest 2012, 141:7S-47S Keisha BORJAS, et al. [facility] 2017, 70: 252-289 Performed By: #### 2 4321-2, HSTNT, , 2776-07 #### [facility] CLIA [id number] [address] [place] [address] [place] PT Coag (PPP) [Time] 11.4 s Normal 9.7-13.0 [facility] Comment on above: Order Comment: Speci men Type: BLOOD SPECIMEN Ordering Facility: [facility] Address: [address] [place] [address] Performed By: #### 2 4321-2, HSTNT, , 2776-07 #### [facility] CLIA [id number] [address] [place] [address] [place] TYPE AND SCREEN,30 DAYon ABO B Normal [facility] Comment on above: Order Comment: Speci men Type: BLOOD SPECIMEN Ordering Facility: [facility] Address: [address] [place] [address] Performed By: #### 2 4321-2, HSTNT, , 2776-07 #### [facility] CLIA [id number] [address] [place] [address] [place] Rh Nom (Bld) Positive Normal [facility] Comment on above: Order Comment: Speci men Type: BLOOD SPECIMEN Ordering Facility: [facility] Address: [address] [place] [address] Performed By: #### 2 4321-2, HSTNT, , 2776-07 #### [facility] CLIA [id number] [address] [place] [address] [place] XR CHEST 2V [...] soft tissues: Unremarkable. IMPRESSION: Large hiatal hernia. 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 Address: [address] [place] [address] Performed By: #### 2 4321-2, HSTNT, 38362-4, 2777-1 #### [facility] CLIA [id number] [address] [place] [address] [place] CNOVon 04-29-2024 CNOV Office Visit (GENN ) SHEY OBRIEN ([id number]) 1950 F Date Time Provider Department 04/29/24 [...] No Yan Moser 04/29/2024 12:10 PM Signed [facility] Abdominal Core Health - HISTORY AND [...] UGI reviewed and uploaded. Large Type III PE. ASSESSMENT/PLAN: chani Obrien is a 73 year [...] Consents obtained Yan Moser MD General Surgery [facility], Xavier Mayfield MD 04/29/2024 12:10 PM Signed [...] and discussed (more content not included)... Normal [facility] CNPNon 04-22-2024 CNPN Telephone (GENSMN) SHEY OBRIEN ([id number]) 1950 F Date Time Provider Department 04/22/24 [...] 04/22/24 Normal [facility] Surgical Pathology Reporton 03-26-2024 Surgical Pathology Report [address] [place] [address]- Surgical Pathology Report Collected Date/Time: 03/20/2024 12:52 [...] is entirely submitted in one cassette. (DC) DC:[facility] Microscopic Description Microscopic examination performed unless gross only specified. The use of one or more reagents in the above tests is regulated as an analyte specific reagent (ASR). The test or tests are ordered following initial H&E microscopic examination. The performance characteristics were determined by the Laboratory of [facility]. They have not been cleared or approved by the US Food and Drug Administration. The FDA has determined that such clearance or approval is not necessary. These tests are used for clinical purposes. They should not be regarded as investigational or for research. Appropriate positive and negative controls are performed and are acceptable. [facility] Comment on above: Performed By: #### 4 [id number] #### [facility] [address] [place] [address] XR Esophaguson 03-26-2024 XR Esophagus Exam Date/Time: [...] mGy = 15.80 DAP = 464.17 [facility] Main OR Intraoperative Recor don 03-22-2024 Main OR Intraoperative Record Main OR Intraoperative Record IntraOp Document Type FT Summary Primary Physician: Katie Hairston MD Finalized Date/Time: 03/22/24 14:46:15 Pt. Name: SHEY OBRIEN/Sex: 1950 Female Med Rec #: [id number] Physician: Katie Hairston MD Financial #: [id number] Pt. Type: O Room/Bed: / Admit/Disch: 03/20/24 [...] Анна Hairston MD, Katie Torres Role Performed VARNISH THINNER Scrub - Primary Surgeon - Primary Time In 03/20/24 12:44:00 03/20/24 12:44:00 03/20/24 12:44:00 Time Out 03/20/24 12:56:00 03/20/24 12:56:00 03/20/24 12:56:00 Procedure EGD(.) EGD(.) EGD(.) Comments Dr. Hairston supervising procedure. Last Modified By: Mynor FORBES, Violette Lopez RN, Essence Pinto RN 03/22/24 14:45:45 03/20/24 12:56:36 03/20/24 12:56:36 Entry 4 Case Attendee Essence Lopez RN Role Performed Resource Development Director - Primary Time In 03/20/24 12:44:00 [...] FORBES, Yovanny Ellington MD, John Sifuentes RN, Essence Marsh Time Out Complete 03/20/24 12:46:00 Outcomes Met? [...] duodenitis, gastritis, tortuous esophagus Last Modified By: Esesnce Lopez RN 03/20/24 12:56:23 Post-Care Text: The patient is free from signs and symptoms of infection Skin Assessment (Pre Procedure) FT Pre-Care Text: Implements protective measures to prevent skin/ tissue injury due to thermal or mechanical sources Evaluates for signs and symptoms of physical injury to skin and tissue Entry 1 Skin Integrity Intact, Baird, Warm, & Skin Abnormality No Dry Outcomes [...] Extended Positioning (more content not included)... [facility] Discharge Instructionson Discharge Instructions Discharge Instructions [...] mg Tab) fluticasone nasal (Flonase 0.05 mg/inh Austin) losartan (losartan 25 mg Tab) multivitamin with [...] Follow Up with Yovanny OLIVO, Katie Torres, [facility] When: Comments: Call for any problems. Office [...] Unchanged fluticasone nasal (Flonase 0.05 mg/ inh Austin) 2 Sprays Nasal Inhalation Every day Unchanged [...] get better (more content not included)... [facility] Comment on above: Result Comment: Elec tronically Signed By: Kassy Barker I\.br\Date and Time Signed: 03/20/24 13:08 EDT Inpatient Patient Summaryon 03-20-2024 Inpatient Patient Summary Inpatient Patient Summary [place] [id number] [facility] Clinical Discharge Instructions PERSON INFORMATION Name: [...] (at bedtime). fluticasone nasal (Flonase 0.05 mg/inh [place]) 2 Sprays Nasal Inhalation every day. losartan [...] bedtime) as needed for sleep. Comment: Normal [facility] Main OR PACU I Recordon 03-10 Main OR PACU I Record Main OR PACU I Rec ord PACU Phase I Document Type FT Summary Primary Physician: Katie Hairston MD Finalized Date/Time: 03/20/24 13:37:02 Pt. Name: SHEY OBRIEN/Sex: 1950 Female Med Rec #: [id number] Physician: Katie Hairston MD Financial #: [id number] Pt. Type: O Room/Bed: / Admit/Disch: 03/20/24 [...] By: Kassy Barker I 03/20/24 13:37 [facility] Main OR Preoperative Recordo n 03-20-2024 Main OR Preoperative Record Main OR Preoperative Record Holding Area Document Type FT Summary Primary Physician: Katie Hairston MD Finalized Date/Time: 03/20/24 11:17:32 Pt. Name: SHEY OBRIEN/Sex: 1950 Female Med Rec #: [id number] Physician: Katie Hairston MD Financial #: [id number] Pt. Type: O Room/Bed: / Admit/Disch: 03/20/24 [...] By: Essence Lopez RN 03/20/24 11:17 [facility] Outpatient Surgery Discharge Instructionon 03-20-2024 Outpatient Surgery Discharge Instruction Outpatient Surgery Discharge Instruction [place] [id number] Patient Discharge Instructions PERSON INFORMATION Name: SHEY OBRIEN Date of : 1950 Current Date: 03/20/2024 12:58:56 PHYSICIANS Admitting Physician: Katie Hairston MD Discharge Diagnosis: KARYNALPA GARCIAON has been [...] to serve you. Thank you for choosing [facility] HERE ARE THE MEDICATION CHANGES [...] (at bedtime). fluticasone nasal (Flonase 0.05 mg/inh [place]) 2 Sprays Nasal Inhalation every day. losartan [...] sleep. PATIENT EDUCATION INFORMATION Instructions: Medication Leaflets: [facility] Proceduralon 03-20-2024 Procedural Procedural Patient: SHEY OBRIEN Age: 73 years Sex: Female : 1950 Associated Diagnoses: None Author: Daquan Schuler MD Postoperative Information Postoperative disposition: Postoperative disposition: To PACU. Optimetrix number: Optimetrix number [id number]. Anesthetic utilized: General. Health Status Allergies: Allergic [...] meets criteria ( To home ). [facility] Procedural Procedural Patient: SHEY OBRIEN Age: [...] 1 tab, Oral, Daily Flonase 0.05 mg/inh Austin: 2 spray(s), Nasal, Daily, Refill(s) 0, Dry [...] a day (at bedtime) Flonase 0.05 mg/inh Austin 2 spray(s), Nasal, Daily losartan 25 mg [...] All Problems BMI 39.0-39.9,adult / SNOMED CT 016574371 / Confirmed Chronic obstructive pulmonary disease / SNOMED CT 17862517 / Confirmed Dyslipidemia / SNOMED CT 1450637913 / Confirmed Dysphagia / SNOMED CT 52204016 / Confirmed GERD (gastroesophageal reflux disease) / SNOMED CT 937919144 / Confirmed Hiatal hernia / SNOMED CT 534287485 / Confirmed HTN (hypertension) / SNOMED CT 7823758835 / Confirmed Insomnia / SNOMED CT 993727189 / Confirmed Lower extremity edema / SNOMED CT 345674535 / Confirmed Morbid obesity / SNOMED CT 170752380 / Confirmed EDWIN (obstructive sleep apnea) / SNOMED CT 901815622 / Confirmed Screening for malignant neoplasm of colon / SNOMED CT 172422682 / Confirmed Seasonal allergic rhinitis / SNOMED CT 792480326 / Confirmed TIA (transient ischemic attack) / SNOMED CT 441241130 / Confirmed Resolved: At risk for falls / SNOMED CT 977585651 Problem added when Risk for Falls Careplan was initiated. Resolved due to patient discharge. Resolved: Hernia / SNOMED CT 902684660 Resolved: Potential for deficient knowledge of cerebrovascular accident (CVA) / IMO 20766666 problem added based on Stroke Powerplan ordered. Resolved due to patient discharge. Resolved: Sleep apnea / SNOMED CT 009615774, Active Problems (14) BMI 39.0-39.9,adult Chronic obstructive pulmonary disease Dyslipidemia Dysphagia GERD (gastroesophageal reflux disease) Hiatal hernia HTN (hypertension) Insomnia Lower extremity edema Morbid obesity EDWIN (obstructive sleep apnea) Screening for malignant neoplasm of colon Seasonal allergic rhinitis TIA (transient ischemic (more content not included)... [facility] ALL FOLIC ACIDon 03-07-2024 FOLATE 23.60 ng/mL 8.60 - 58.90 ng/mL [facility] ALL THYROID STIM HORMONEon 0 03-07-2024 TSH Qn 2.782 m[IU]/L [facility] No Panel Informationon 03-07 [facility] Ambulatory Visit Summaryon 0 02-26-2024 Ambulatory Visit [...] mg Tab) fluticasone nasal (Flonase 0.05 mg/inh [place]) losartan (losartan 25 mg Tab) multivitamin with [...] Unchanged fluticasone nasal (Flonase 0.05 mg/ inh [place]) 2 Sprays Nasal Inhalation Every day Contact [...] for choosing us for your care. [facility] Gastroenterology Office/Clin ic Noteon 02-26-2024 Gastroenterology [...] or gangrene) reports she had esophagram in [place] no egd in the past declined surgery [...] a day (at bedtime) Flonase 0.05 mg/inh Austin, 2 spray(s), Nasal, Daily losartan 25 mg [...] virus vaccine, inactivated 05/03/2022 Recorded SARS-CoV-2 (COVID-19) [id number] 05/03/2022 Recorded influenza virus vaccine, inactivated 04/12/2021 [...] influenza virus vaccine, inactivated 04/16/2015 Recorded [facility] Comment on above: Result Comment: Elec tronically Signed By: Yovanny OLIVO, Katie Torres\.maikol\Date and Time Signed: 02/26/24 09:38 EDT IntraOperative Documentson 0 10-19-2023 IntraOperative Documents [id number] .00TIFF [facility] Consenton 10-16-2023 Consent [id number]#1. 00TIFF [facility] Discharge Instructionson Discharge Instructions [id number]#1. 00TIFF [facility] Main OR Intraoperative Recor don 10-16-2023 Main OR Intraoperative Record IntraOp Document Type FT Summary Primary Physician: Pa WEBB MD Finalized Date/Time: 10/16/23 09:46:21 Pt. Name: KARYNALPAON Tamie/Sex: 1950 Female Med Rec #: [id number] Physician: Pa WEBB MD Financial #: [id number] Pt. Type: O Room/Bed: / Admit/Disch: 10/13/23 [...] Entry 2 Entry 3 Case Attendee Rajwinder DRAPERValentin MD, Kimberly Mcclellan RN Role Performed Anesthesiologist Surgeon - Primary Resource Development Director - Primary Bakery Clerk Time In 10/13/23 08:55:00 10/13/23 08:55:00 10/13/23 [...] and tissue Entry 1 Skin Integrity Intact, Baird, Warm, and Skin Abnormality No Dry Outcomes [...] Infante RN (more content not included)... [facility] Postoperative Documentson Postoperative Documents [id number]#1. 00TIFF [facility] Reminderson 10-16-2023 Reminders - From: Nhi Aguirre LPN To: N - Clinical; Sent: 10/16/2023 10:15:48 EDT Show up: 09/11/2033 07:00:00 EST Subject: colonoscopy recall Due Date/Time: 10/12/2033 07:00:00 EDT Reminder/Recall Patient due for screening colonoscopy 10/12/2033. [facility] Colonoscopy Procedure Report on 10-13-2023 Colonoscopy [...] for screening for malignant neoplasm of rectum (SGN94-TU Z12.12, Discharge, Medical). Course: Progressing as expected. Recommendations: Repeat colonoscopy:: In 10 years. Follow-up:: if problems/questions. Diet:: Regular diet. Medication resumption:: Continue current medications. Return to activities:: After 24 hours. Education and Follow-up: Counseled: Family. [facility] Comment on above: Other Comment: Samreen dueñas Attachment - attachment storage system not supported [id number] Can be viewed in source systemMissing Attachment - attachment storage system not supported [id number] Can be viewed in source systemMissStylefinch Attachment - attachment storage system not supported 4926841 Can be viewed in source systemMissing Attachment - attachment storage system not supported [id number] Can be viewed in source systemMissStylefinch Attachment - attachment storage system not supported 6007958 Can be viewed in source system Consent for Treatmenton Consent for Treatment [id number] 0TIFF [facility] Discharge Instructionson Discharge Instructions SHYE OBRIEN :1950 Visit Date:10/13/2023 Inpatient Discharge Instructions [...] mg Tab) fluticasone nasal (Flonase 0.05 mg/inh [place]) losartan (losartan 25 mg Tab) multivitamin with [...] Pa WEBB When: Only if needed Where: [address] [place] [address], [facility] [address] [address]- Business (1) Medications What How [...] Unchanged fluticasone nasal (Flonase 0.05 mg/ inh [place]) 2 Sprays Nasal Inhalation Every day Unchanged [...] as instru (more content not included)... [facility] Comment on above: Result Comment: Elec tronically Signed By: Marcy FORDE, Mariaelena\.br\Date and Time Signed: 10/13/23 09:33 EDT Inpatient Patient Summaryon 10-13-2023 Inpatient Patient Summary [place] [id number] [facility] Clinical Discharge Instructions PERSON INFORMATION Name: SHEY OBRIEN [facility]#:[id number] PHYSICIANS Admitting Physician: Pa WEBB MD Attending Physician: Pa WEBB MD PCP: LATRELL JACK MD Discharge Diagnosis: Encounter for colorectal cancer screening; Encounter for screening for malignant neoplasm of rectum Comment: PATIENT EDUCATION INFORMATION Instructions: Medication Leaflets: Follow up: With: Address: When: Pa WEBB [address], [address], [facility] [address] [place] [id number] Business (1) , only if needed MEDICATION [...] (at bedtime). fluticasone nasal (Flonase 0.05 mg/inh [place]) 2 Sprays Nasal Inhalation every day. losartan [...] bedtime) as needed for sleep. Comment: [facility] Main OR PACU I Recordon Main OR PACU I Record PACU Phase I Docum ent Type FT Summary Primary Physician: Pa WEBB MD Finalized Date/Time: 10/13/23 09:54:27 Pt. Name: SHEY OBRIEN/Sex: 1950 Female Med Rec #: [id number] Physician: Pa WEBB MD Financial #: [id number] Pt. Type: O Room/Bed: / Admit/Disch: 10/13/23 [...] By: Mariaelena Vidal RN 10/13/23 09:54 [facility] Main OR Preoperative Recordo n 10-13-2023 Main OR Preoperative Record Holding Area Document Type FT Summary Primary Physician: Pa WEBB MD Finalized Date/Time: 10/13/23 08:06:06 Pt. Name: SHEY OBRIEN/Sex: 1950 Female Med Rec #: [id number] Physician: Pa WEBB MD Financial #: [id number] Pt. Type: O Room/Bed: / Admit/Disch: 10/13/23 [...] Signed By: Trip Domínguez 10/13/23 08:06 [facility] Monitor Recordon 10-13-2023 Monitor Record [id number]. 00TIFF [facility] Monitor Record [id number]. 00TIFF [facility] Outpatient Surgery Discharge Instructionon 10-13-2023 Outpatient Surgery Discharge Instruction [address] [address] Patient Discharge Instructions PERSON INFORMATION Name: SHEY [...] Follow up: With: Address: When: Pa WEBB [address] [place] [address], [address], [place] [phone] [facility] (1) , only if needed Pharmacy Information: You may receive a survey from [employer] asking you to rate your care experience. Your feedback is important and will help us understand what we do well and how we can improve the quality of care we provide to you, your loved ones and our community. It?s an honor to serve you. Thank you for choosing [facility] HERE ARE THE MEDICATION CHANGES [...] (at bedtime). fluticasone nasal (Flonase 0.05 mg/inh [place]) 2 Sprays Nasal Inhalation every day. losartan [...] sleep. PATIENT EDUCATION INFORMATION Instructions: Medication Leaflets: [facility] Patient Education - Texton 0 10-13-2023 Patient [...] or gets worse throughout the day. [facility] Progress Note-Physicianon Progress Note-Physician Patient: SHEY OBRIEN Age: 73 years Sex: Female : 1950 Associated Diagnoses: None Author: Shaji Bethea Jr., DO Postoperative Information Postoperative disposition: Postoperative disposition: Home. Optimetrix number: Optimetrix number [id number]. Anesthetic utilized: General. Physical Examination Vital Signs [...] Surgery Unit, and To home ). [facility] Comment on above: Result Comment: Elec [...] m2 Documented Medications Documented Flonase 0.05 mg/inh Austin: 2 spray(s), Nasal, Daily, Refill(s) 0, Dry [...] a day (at bedtime) Flonase 0.05 mg/inh Austin 2 spray(s), Nasal, Daily losartan 25 mg [...] All Problems BMI 39.0-39.9,adult / SNOMED CT 653674225 / Confirmed Chronic obstructive pulmonary disease / SNOMED CT 69243474 / Confirmed Dyslipidemia / SNOMED CT 4192249368 / Confirmed GERD (gastroesophageal reflux disease) / SNOMED CT 106726280 / Confirmed Hiatal hernia / SNOMED CT 807125927 / Confirmed HTN (hypertension) / SNOMED CT 3761421002 / Confirmed Insomnia / SNOMED CT 090828657 / Confirmed Lower extremity edema / SNOMED CT 057152436 / Confirmed Morbid obesity / SNOMED CT 529065500 / Confirmed EDWIN (obstructive sleep apnea) / SNOMED CT 823983448 / Confirmed Screening for malignant neoplasm of colon / SNOMED CT 125456874 / Confirmed Seasonal allergic rhinitis / SNOMED CT 207071199 / Confirmed TIA (transient ischemic attack) / SNOMED CT 346972680 / Confirmed Resolved: At risk for falls / SNOMED CT 218993408 Problem added when Risk for Falls Careplan was initiated. Resolved due to patient discharge. Resolved: Hernia / SNOMED CT 615183385 Resolved: Potential for deficient knowledge of cerebrovascular accident (CVA) / IMO 47005013 problem added based on Stroke Powerplan ordered. Resolved due to patient discharge. Resolved: Sleep apnea / SNOMED CT 771473741 Histories Past Medical History: Resolved Hernia (418560113): Resolved. Sleep apnea (104567939): Resolved. Procedure history: ORIF - Open reduction of fracture of ankle with internal fixation ([id number]). Meniscal repair (875624968). Tonsillectomy (733404413). Hand tendon repaired (273764703). Social History Social & Psychosocial Habits Alcohol 09/12/2023 Frequency: 1-2 times per year Substance Abuse Comment: denies - 03/03/2021 07:19 - Terry FORDE, Carolyn Gil 09/12/2023 Risk Assessment: Denies Substance Abuse Tobacco 09/12/2023 Tobacco Use: Former smoker, quit more Smokeless tobacco use: Never Type: Cigarettes . Physical Examination Vital Signs 10/13/2023 8:03 EDT Temperature Temporal Artery 36.3 DegC (more content not included)... [facility] Comment on above: Result Comment: Elec tronically Signed By: Shaji Bethea Jr., DO.maikol\Date and Time Signed: 10/13/23 08:04 EDT Consent for Procedure/Surger yon 09-13-2023 Consent for Procedure/Surgery [id number] TIFF [facility] Ambulatory Visit Summaryon 0 09-12-2023 Ambulatory [...] mg Tab) fluticasone nasal (Flonase 0.05 mg/inh [place]) losartan (losartan 25 mg Tab) multivitamin with [...] Unchanged fluticasone nasal (Flonase 0.05 mg/ inh [place]) 2 Sprays Nasal Inhalation Every day Contact [...] for choosing us for your care. [facility] Provider Letteron 08-25-2023 Provider Letter August 25, 2023 SHEY OBRIEN [address] [place] [phone] : 1950 Dear Ms. Obrien, We have been trying to reach you with no success regarding a referral from Dr Jack. It is important that you return our call upon receiving this letter so that we can set up an appointment for you in either our [place] or [place] office. Also, at the time of your call, please provide us with your current demographic and insurance information. Thank you for your prompt attention to this matter. Sincerely, [facility] General Surgery [phone] [facility] Physician Referralon 024 Physician Referral [id number]#1.0 0TIFF [facility] CT LUNG CANCER SCREENINGon 0 07-28-2022 [...] MEHNAZ SANTIAGO Date: 2022-07-28 15:28 Normal [facility] BNPon 02-22-2022 Natriuretic peptide B (Bld) [Mass/Vol] 108.0 pg/mL Normal <=900.0 [facility] Comment on above: Performed By: #### B MP, BNP, HSTROPN ####[facility] [id number] [place] [id number]. Felisa Ronnie CBC AUTO DIFFon 02-22-2022 BASO # 0.0 103/ul Normal 0.0-0.1 [facility] Comment on above: Performed By: #### C BC ####[facility] [address] [place] [id number]. Felisa Trujillo Basophils/100 WBC (Bld) 0.7 % Normal 0.2-2.0 [facility] Comment on above: Performed By: #### C BC ####[facility] [address] [place], [place] [address]Dr. Krystakun Trujillo EO # 0.1 103/ul Normal 0.0-0.7 [facility] Comment on above: Performed By: #### C BC ####[facility] [address]sm[address] [place], [place] [address]Dr. Felisa Trujillo Eosinophils/100 WBC (Bld) 1.4 % Normal 0.9-7.0 [facility] Comment on above: Performed By: #### C BC ####[facility] [address] [place], [place] [address]Dr. Krystakun Trujillo Erythrocyte distribution width (RBC) [Ratio] 13.2 % Normal 11.0-15.0 [facility] Comment on above: Performed By: #### C BC ####[facility] [address] [place], [place] [address]Dr. Krystakun Trujillo Hematocrit (Bld) [Volume fraction] 36.6 % Normal 36.0-48.0 [facility] Comment on above: Performed By: #### C BC ####[facility] [address] [place], [place] [address]Dr. Krystakun Trujillo Hemoglobin (Bld) [Mass/Vol] 12.7 g/dL Normal 12.0-16.0 [facility] Comment on above: Performed By: #### C BC ####[facility] [address] [place], [place] [address]Dr. Felisa Trujillo IG # 0.01 10e3/ul Normal 0.00-0.03 [facility] Comment on above: Performed By: #### C BC ####[facility] [address]hqny[address] [place] [id number]. Krystakun Trujillo IG % 0.2 % Normal 0.0-0.5 [facility] Comment on above: Performed By: #### C BC ####[facility] Zspfyehkop[address] [place] [address]Dr. Felisa Trujillo LYMPH # 1.0 103/ul Critically low 1.2-3.8 [facility] Comment on above: Performed By: #### C BC ####[facility] [address]ikysmse[address] [place] [address]Dr. Krystakun rTujillo Lymphocytes/100 WBC (Bld) 22.3 % Normal 20.5-60.0 [facility] Comment on above: Performed By: #### C BC ####[facility] [address]znqay[address] [place] [address]Dr. Felisa Trujillo MANUAL DIFF REQ NO Normal [facility] Comment on above: Performed By: #### C BC ####[facility] H[address]sivimiz[address] [place] [address]Dr. Felisa Ronnie MCH (RBC) [Entitic mass] 31.8 pg Normal 26.7-34.0 [facility] Comment on above: Performed By: #### C BC ####[facility] [address]ymabmx[address] [place] [address]Dr. Felisa Trujillo MCHC (RBC) [Mass/Vol] 34.7 g/dL Normal 29.9-35.2 [facility] Comment on above: Performed By: #### C BC ####[facility] Igedfwltjk[address] [place] [id number]. Krystakun Trujillo MCV (RBC) [Entitic vol] 91.7 fL Normal 81.0-99.0 [facility] Comment on above: Performed By: #### C BC ####[facility] [address]aredbeaf[address] [place] [address]Dr. Felisa Trujillo MONO # 0.5 103/ul Normal 0.3-0.8 [facility] Comment on above: Performed By: #### C BC ####[facility] E[address]pzaus[address] [place] [address]Dr. Felisa Trujillo Monocytes/100 WBC (Bld) 11.7 % Normal 1.7-12.0 [facility] Comment on above: Performed By: #### C BC ####[facility] Gvoxkrkxqd[address] [place] [address]Dr. Felisa Trujillo NEUT # 2.7 103/ul Normal 1.4-6.5 [facility] Comment on above: Performed By: #### C BC ####[facility] El[address]kwtcv[address] [place] [address]Dr. Felisa Trujillo Neutrophils/100 WBC (Bld) 63.7 % Normal 43.0-75.0 [facility] Comment on above: Performed By: #### C BC ####[facility] Y[address]jgkoksmt[address] [place] [address]Dr. Felisa Trujillo Platelet mean volume (Bld) [Entitic vol] 10.2 fL Normal 9.5-13.5 [facility] Comment on above: Performed By: #### C BC ####[facility] Slbmvmtwwt[address] [place] [address]Dr. Felisa Trujillo PLT 149 103/ul Critically low 150-450 [facility] Comment on above: Performed By: #### C BC ####[facility] [address]flpcokc[address] [place] [address]Dr. Felisa Trujillo RBC 3.99 106/ul Critically low 4.20-5.40 [facility] Comment on above: Performed By: #### C BC ####[facility] S[address]th[address]fpkh[address] [place] [address]Dr. Felisa Trujillo WBC 4.3 103/ul Normal 4.0-11.0 [facility] Comment on above: Performed By: #### C BC ####[facility] [address]zsxekf[address] [place] [address]Dr. Felisa Trujillo Covid-19 PCR (CVDTB)on 02-07 SARS-CoV-2 (COVID-19) RNA DUGLAS+probe Ql (Unsp spec) Detected Critically abnormal NOT DETECTED [facility] Comment on above: Result Comment: This test is not yet approved or cleared by the [place] FDA. When there are no FDA-approved or cleared tests available, and other criteria are met, FDA can make tests available under an emergency access mechanism called an Emergency Use Authorization (EUA). The EUA for this test is supported by the [place] of Health and Human Service's declaration that [...] be used). Performed By: #### C VDTBH ####[facility] [address]wt[address] [place] [address]Dr. Felisa Trujillo PROF CHEM 8 (BAS METB)on Anion gap [Moles/Vol] 14.9 mmol/L Normal [facility] Comment on above: Performed By: #### B MP, BNP, HSTROPN ####[facility] [address]ym[address] [place] [address]Dr. Felisa Trujillo Calcium [Mass/Vol] 8.9 mg/dL Normal 8.5-10.1 [facility] Comment on above: Performed By: #### B MP, BNP, HSTROPN ####[facility] Bnxnvklpae[address] [place] [address]Dr. Felisa Trujillo Chloride [Moles/Vol] 104 mmol/L Normal 98-107 [facility] Comment on above: Performed By: #### B MP, BNP, HSTROPN ####[facility] Evtniivrfd4[address] [place] [address]Dr. Felisa Trujillo CO2 [Moles/Vol] 24.0 mmol/L Normal 21.0-32.0 [facility] Comment on above: Performed By: #### B MP, BNP, HSTROPN ####[facility] W[address]abbelfvo[address] [place] [address]Dr. Felisa Trujillo Creatinine [Mass/Vol] 0.98 mg/dL Normal 0.55-1.02 [facility] Comment on above: Performed By: #### B MP, BNP, HSTROPN ####[facility] Fmwkgifkqr[address] [place] [address]Dr. Felisa Trujillo EGFR-AF BELIZEAN >60 Normal >=60 [facility] Comment on above: Performed By: #### B MP, BNP, HSTROPN ####[facility] E[address]hk[address] [place] [address]Dr. Felisa Trujillo EGFR-NON AF BELIZEAN 56 mL/min/1.73m2 Critically low >=60 [facility] Comment on above: Performed By: #### B MP, BNP, HSTROPN ####[facility] Mviqakhrxj30[address] [place] [address]Dr. Felisa Trujillo Glucose [Mass/Vol] 136 mg/dL Critically high 74-106 [facility] Comment on above: Performed By: #### B MP, BNP, HSTROPN ####[facility] [address]iz[address] [place], [place] [address]Dr. Felisa Trujillo Potassium [Moles/Vol] 3.9 mmol/L Normal 3.5-5.1 [facility] Comment on above: Performed By: #### B MP, BNP, HSTROPN ####[facility] Wwsoqwsrri[address] [place] [address]Dr. Felisa Trujillo Sodium [Moles/Vol] 139 mmol/L Normal 136-145 [facility] Comment on above: Performed By: #### B MP, BNP, HSTROPN ####[facility] [address]ud[address]rfca[address] [place] [address]Dr. Felisa Trujillo Urea nitrogen [Mass/Vol] 14.0 mg/dL Normal 7.0-18.0 [facility] Comment on above: Performed By: #### B MP, BNP, HSTROPN ####[facility] [address] [place] [address]Dr. Felisa Trujillo Urea nitrogen/Creatinine [Mass ratio] 14.3 mg/mg Normal [facility] Comment on above: Performed By: #### B MP, BNP, HSTROPN ####[facility] [address] [place], [place] [address]Rw. Felisa Trujillo TROPONIN, HIGH SENSITIVITYon 02-22-2022 HSTROP 5.9 pg/mL Normal 4.0-51.3 [facility] Comment on above: Result Comment: CUT- OFF POINTS HAVE BEEN ESTABLISHED BASED ON THE FOURTH UNIVERSAL DEFINITIONS OF MYOCARDIAL INFARCTION. THE UPPER REFERENCE LIMIT (URL) OF TROPONIN, DEFINED THE 99TH PERCENTILE OF cTnI DISTRIBUTION IN A REFERENCE POPULATION, HAS BEEN CONFIRMED THE DECISION THRESHOLD FOR ID DIAGNOSIS. Performed By: #### B MP, BNP, HSTROPN ####[facility] [address] [place], [place] [address]Go. Felisa Trujillo XR CHEST 1 Von 02-22-2022 [...] MEHNAZ SANTIAGO Date: 2022-02-22 13:30 Normal [facility] MAMM SCREEN 3D RONALD CADon 11-11-2021 MG MAMM SCREEN 3D RONALD CAD Patient: SHEY OBRIEN Exam Date: 11/11/2021 : 1950 Gender:F Ordering : DR LATRELL JACK . Admission #: [id number] Family : Order #: [id number] CLICK HERE TO VIEW EXAM RADIOLOGY REPORT [...] at age 46. LOCATION: [facility] BREAST COMPOSITION: Almost entirely fatty. FINDINGS: [...] MD on 11/11/2021 at 13:04 Normal [facility] BNPon 11-02-2021 Natriuretic peptide B (Bld) [Mass/Vol] 42.0 pg/mL Normal <=900.0 [facility] Comment on above: Performed By: #### H STROPN, CMP, BNP #### [facility] [address] [place] [address] Dr. Felisa Trujillo CBC AUTO DIFFon 11-02-2021 BASO # 0.1 103/ul Normal 0.0-0.1 [facility] Comment on above: Performed By: #### C BC #### [facility] [address] [place] [address] Dr. Felisa Trujillo Basophils/100 WBC (Bld) 0.8 % Normal 0.2-2.0 [facility] Comment on above: Performed By: #### C BC #### [facility] [address] [place] [address] Dr. Felisa Trujillo EO # 0.3 103/ul Normal 0.0-0.7 [facility] Comment on above: Performed By: #### C BC #### [facility] [address] [place] [address] Dr. Felisa Trujillo Eosinophils/100 WBC (Bld) 3.9 % Normal 0.9-7.0 [facility] Comment on above: Performed By: #### C BC #### [facility] [address] [place] [address] Dr. Felisa Trujillo Erythrocyte distribution width (RBC) [Ratio] 12.7 % Normal 11.0-15.0 [facility] Comment on above: Performed By: #### C BC #### [facility] [address] [place] [address] Dr. Felisa Trujillo Hematocrit (Bld) [Volume fraction] 40.2 % Normal 36.0-48.0 [facility] Comment on above: Performed By: #### C BC #### [facility] [address] [place] [address] Dr. Felisa Trujillo Hemoglobin (Bld) [Mass/Vol] 13.6 g/dL Normal 12.0-16.0 [facility] Comment on above: Performed By: #### C BC #### [facility] [address] [place] [address] Dr. Felisa Trujillo IG # 0.02 10e3/ul Normal 0.00-0.03 [facility] Comment on above: Performed By: #### C BC #### [facility] [address] [place] [address] Dr. Felisa Trujillo IG % 0.3 % Normal 0.0-0.5 [facility] Comment on above: Performed By: #### C BC #### [facility] [address] [place] [address] Dr. Felisa Trujillo LYMPH # 1.9 103/ul Normal 1.2-3.8 [facility] Comment on above: Performed By: #### C BC #### [facility] [address] [place] [address] Dr. Felisa Trujillo Lymphocytes/100 WBC (Bld) 30.0 % Normal 20.5-60.0 [facility] Comment on above: Performed By: #### C BC #### [facility] [address] [place] [address] Dr. Felisa Trujillo MANUAL DIFF REQ NO Normal [facility] Comment on above: Performed By: #### C BC #### [facility] [address] [place] [address] Dr. Felisa Trujillo MCH (RBC) [Entitic mass] 31.5 pg Normal 26.7-34.0 [facility] Comment on above: Performed By: #### C BC #### [facility] [address] [place] [address] Dr. Felisa Trujillo MCHC (RBC) [Mass/Vol] 33.8 g/dL Normal 29.9-35.2 [facility] Comment on above: Performed By: #### C BC #### [facility] [address] [place] [address] Dr. Felisa Trujillo MCV (RBC) [Entitic vol] 93.1 fL Normal 81.0-99.0 [facility] Comment on above: Performed By: #### C BC #### [facility] [address] [place] [address] Dr. Felisa Trujillo MONO # 0.6 103/ul Normal 0.3-0.8 [facility] Comment on above: Performed By: #### C BC #### [facility] [address] [place] [address] Dr. Felisa Trujillo Monocytes/100 WBC (Bld) 8.5 % Normal 1.7-12.0 [facility] Comment on above: Performed By: #### C BC #### [facility] [address] [place] [address] Dr. Felisa Trujillo NEUT # 3.7 103/ul Normal 1.4-6.5 [facility] Comment on above: Performed By: #### C BC #### [facility] [address] [place] [address] Dr. Felisa Trujillo Neutrophils/100 WBC (Bld) 56.5 % Normal 43.0-75.0 [facility] Comment on above: Performed By: #### C BC #### [facility] [address] [place] [address] Dr. Felisa Trujillo Platelet mean volume (Bld) [Entitic vol] 9.9 fL Normal 9.5-13.5 [facility] Comment on above: Performed By: #### C BC #### [facility] [address] [place] [address] Dr. Felisa Trujillo PLT 193 103/ul Normal 150-450 [facility] Comment on above: Performed By: #### C BC #### [facility] [address] [address] [address] Felisa Trujillo RBC 4.32 106/ul Normal 4.20-5.40 [facility] Comment on above: Performed By: #### C BC #### [facility] [address] [id number] Felisa Trujillo WBC 6.5 103/ul Normal 4.0-11.0 [facility] Comment on above: Performed By: #### C BC #### [facility] [address] [address] [address] Felisa Trujillo Covid-19 PCR (CVDTBH)on 10-09 SARS-CoV-2 (COVID-19) RNA DUGLAS+probe Ql (Unsp spec) Not detected Normal NOT DETECTED [facility] Comment on above: Result Comment: When [...] for this test is supported by the Supervisor [place] of Health and Human Service's declaration that [...] used). Performed By: #### C VDTBH #### [facility] [address] [id number] Felisa Trujillo LACTATE/LACTIC ACIDon 2021 Lactate [Moles/Vol] 1.0 mmol/L Normal 0.4-2.0 [facility] Comment on above: Performed By: #### L ACT ####[facility] [address] [place] [address]Dr. Felisa Trujillo PH VENOUS BLOODon 11-02-2021 PCO2 VENOUS 40.3 mmHg Normal 40.0-52.0 [facility] Comment on above: Performed By: #### P HVEN ####[facility] Mrdirsgdii[address] [place] [address]Dr. Felisa Trujillo pH VENOUS 7.431 Critically high 7.330-7.430 [facility] Comment on above: Performed By: #### P HVEN ####[facility] Hdvbwsgvqq[address] [place] [address]Dr. Felisa Trujillo PROF 14(COMP METB)on 022 Albumin [Mass/Vol] 4.1 g/dL Normal 3.4-5.0 [facility] Comment on above: Performed By: #### H STROPN, CMP, BNP ####[facility] Ls[address]ocza[address] [place] [address]Dr. Felisa Trujillo Albumin/Globulin [Mass ratio] 1.1 {ratio} Normal [facility] Comment on above: Performed By: #### H STROPN, CMP, BNP ####[facility] [address]wkftoabw[address] [place] [address]Dr. Felisa Trujillo ALP [Catalytic activity/Vol] 120 U/L Critically high 46-116 [facility] Comment on above: Performed By: #### H STROPN, CMP, BNP ####[facility] Uurg[address]hglf[address] [place] [address]Dr. Felisa Trujillo ALT [Catalytic activity/Vol] 29 U/L Normal 14-59 [facility] Comment on above: Performed By: #### H STROPN, CMP, BNP ####[facility] J[address]zashked[address] [place] [address]Dr. Felisa Trujillo Anion gap [Moles/Vol] 14.2 mmol/L Normal [facility] Comment on above: Performed By: #### H STROPN, CMP, BNP ####[facility] Mo[address]pmrua[address] [place] [address]Dr. Felisa Trujillo AST [Catalytic activity/Vol] 24 U/L Normal 15-37 [facility] Comment on above: Performed By: #### H STROPN, CMP, BNP ####[facility] [address] [place] [id number]. Felisa Trujillo Bilirubin [Mass/Vol] 0.6 mg/dL Normal 0.2-1.0 [facility] Comment on above: Performed By: #### H STROPN, CMP, BNP ####[facility] Lyspeem[address]sl[address] [place] [address]Dr. Felisa Trujillo Calcium [Mass/Vol] 8.8 mg/dL Normal 8.5-10.1 [facility] Comment on above: Performed By: #### H STROPN, CMP, BNP ####[facility] Vt[address]jarw[address] [place] [address]Dr. Felisa Trujillo Chloride [Moles/Vol] 103 mmol/L Normal 98-107 [facility] Comment on above: Performed By: #### H STROPN, CMP, BNP ####[facility] Y[address]qyjviizc[address] [place] [address]Dr. Felisa Trujillo CO2 [Moles/Vol] 25.3 mmol/L Normal 21.0-32.[address] [facility] Comment on above: Performed By: #### H STROPN, CMP, BNP ####[facility] S[address]cebe[address] [place] [address]Dr. Felisa Trujillo Creatinine [Mass/Vol] 0.86 mg/dL Normal 0.55-1.02 [facility] Comment on above: Performed By: #### H STROPN, CMP, BNP ####[facility] Jrwfsnqlwm[address] [place] [address]Dr. Felisa Trujillo EGFR-AF BELIZEAN >60 Normal >=[address] [facility] Comment on above: Performed By: #### H STROPN, CMP, BNP ####[facility] Qzinoirzes[address] [place] [address]Dr. Felisa Trujillo EGFR-NON AF BELIZEAN >60 Normal >=60 [facility] Comment on above: Performed By: #### H STROPN, CMP, BNP ####[facility] Vqhzvtyngs[address] [place] [address]Dr. Felisa Trujillo Globulin (S) [Mass/Vol] 3.6 g/dL Normal [facility] Comment on above: Performed By: #### H STROPN, CMP, BNP ####[facility] Lfmnqagxds[address] [place] [address]Dr. Felisa Trujillo Glucose [Mass/Vol] 90 mg/dL Normal 74-106 [facility] Comment on above: Performed By: #### H STROPN, CMP, BNP ####[facility] Ry[address]jaochma[address] [place] [address]Dr. Felisa Trujillo Potassium [Moles/Vol] 3.5 mmol/L Normal 3.5-5.1 [facility] Comment on above: Performed By: #### H STROPN, CMP, BNP ####[facility] [address] [place], [place] [address]Dr. Felisa Trujillo Protein [Mass/Vol] 7.7 g/dL Normal 6.1-8.2 [facility] Comment on above: Performed By: #### H STROPN, CMP, BNP ####[facility] Tbjazliszk[address] [place] [address]Dr. Felisa Trujillo Sodium [Moles/Vol] 139 mmol/L Normal 136-145 [facility] Comment on above: Performed By: #### H STROPN, CMP, BNP ####[facility] Dcdyjcwesr[address] [place] [address]Dr. Felisa Trujillo Urea nitrogen [Mass/Vol] 13.0 mg/dL Normal 7.0-18.0 [facility] Comment on above: Performed By: #### H STROPN, CMP, BNP ####[facility] Taxggikszw[address] [place] [address]Dr. Felisa Trujillo Urea nitrogen/Creatinine [Mass ratio] 15.1 mg/mg Normal [facility] Comment on above: Performed By: #### H STROPN, CMP, BNP ####[facility] [address] [place], [place] [address]Dr. Felisa Trujillo PROTIMEon 11-02-2021 INR Coag (PPP) [Relative time] 0.99 {INR} Normal [facility] Comment on above: Performed By: #### P TT, PT #### [facility] [address] [place] [address] Dr. Felisa Trujillo INR GUIDELINES SEE BELOW Normal [facility] Comment on above: Result Comment: KAY RED INR: 2.0 - 3.0 CONDITIONS NOT LISTED BELOW 2.5 - 3.5 FOR PROSTHETIC HEART VALVE REPLACEMENT 2.5 - 3.5 RECURRENT THROMBOSIS Performed By: #### P TT, PT #### [facility] [address] [place] [address] Dr. Felisa Trujillo PT Coag (PPP) [Time] 10.7 s Normal 9.0-11.6 [facility] Comment on above: Performed By: #### P TT, PT #### [facility] [address] [place] [address] Dr. Felisa Trujillo PTTon 11-02-2021 aPTT Coag (Bld) [Time] 25.9 s Normal 22.3-36.2 [facility] Comment on above: Performed By: #### P TT, PT #### [facility] [address] [place] [address] Dr. Felisa Trujillo TROPONIN, HIGH SENSITIVITYon 11-02-2021 HSTROP 8.7 pg/mL Normal 4.0-51.3 [facility] Comment on above: Result Comment: CUT- OFF POINTS HAVE BEEN ESTABLISHED BASED ON THE FOURTH UNIVERSAL DEFINITIONS OF MYOCARDIAL INFARCTION. THE UPPER REFERENCE LIMIT (URL) OF TROPONIN, DEFINED THE 99TH PERCENTILE OF cTnI DISTRIBUTION IN A REFERENCE POPULATION, HAS BEEN CONFIRMED THE DECISION THRESHOLD FOR ID DIAGNOSIS. Performed By: #### H STROPN, CMP, BNP #### [facility] [address] [place] [address] Dr. Felisa Trujillo Covid-19 PCR (CVDTBH)on SARS-CoV-2 (COVID-19) RNA DUGLAS+probe Ql (Unsp spec) Not detected Normal NOT DETECTED [facility] Comment on above: Result Comment: This test is not yet approved or cleared by the [place] FDA. When there are no FDA-approved or cleared tests available, and other criteria are met, FDA can make tests available under an emergency access mechanism called an Emergency Use Authorization (EUA). The EUA for this test is supported by the [place] of Health and Human Service's (HHS's) declaration [...] consistent with SARS-CoV-2. Performed By: #### [facility] #### [facility] [address] [address] [address] Felisa Trujillo XR CHEST 2 Von [...] MEHNAZ SANTIAGO Date: 2021-09-02 14:39 Normal [facility] - AP Resultson 9 Lab - AP Results [id number]#1.00 OTGTIFF Normal [facility] Pathology Sendout Teston Pathology Send Out. See Report Normal [facility] Comment on above: Order Comment: left ring finger , cyst tendon sheath Performed By: #### 2 [id number] ####[facility] (DEFAULT)[address] [place] [address] Coding Summaryon 02-08-2019 Coding Summary CODING DATE: 02/08/[address] [facility] STATUS: Home PAYOR: Medicare MC APC DESCRIPTION 5112 Level 2 Musculoskeletal Procedures ADMIT DX: REASON FOR VISIT DX: M65.342 Trigger finger, left ring finger FINAL DX: PRINCIPAL: M65.342 Trigger finger, left ring finger SECONDARY: M67.442 Ganglion, left hand J44.9 Chronic obstructive pulmonary disease, unspecified PYMT PROC APC STAT DESCRIPTION DOCTOR NAME DATE 05169 511 J1 Excision of lesion of TulioDaquan And 02/04/2019 tendon sheath or joint capsule [...] Cassy Bradley Date Saved: 02/08/2019 11:52 am [facility] Consent Formson 02-05-2019 Consent Forms [id number]#1.00 [facility] Discharge Instructionson Discharge Instructions [id number]#1.00 [facility] History and Physicalon 02-05 History and Physical [id number]#1.00 [facility] MAGR Intraoperative Recordon 02-05-2019 MAGR Intraoperative Record MAGR Intra-Op Record Summary Primary Physician: Daquan Antunez DO Finalized Date/Time: 02/05/19 07:41:01 Pt. Name: SHEY OBRIEN/Sex: 1950 FEMALE Med Rec #: [id number] Physician: Daquan Antunez DO Financial #: [id number] Pt. Type: D Room/Bed: / Admit/Disch: 02/04/19 [...] Role Performed Surgeon - Primary Anesthesiologist of Resource Development Director Record Time In 02/04/19 15:31:00 02/04/19 15:31:00 02/04/19 15:31:00 Time Out 02/04/19 16:08:00 02/04/19 16:08:00 02/04/19 16:08:00 Procedure Trigger Finger Release Trigger Finger Release Trigger Finger Release Last Modified By: Toshia Plascencia RN, Barbara RN Long, Barbara RN 02/04/19 16:16:05 02/04/19 16:16:05 02/04/19 16:16:05 Entry 4 Entry 5 Case Attendee Paloma Esparza Regina CST Role Performed Scrub Personnel Foil Operator Time In 02/04/19 15:31:00 02/04/19 15:31:00 [...] Modify Pick List 02/05/19 07:40 MHBLONG Modify [facility] Medication Managementon 01-09 Medication Management [id number]#1.00 [facility] Provider Orderson 02-05-2019 Provider Orders [id number]#1.00 [facility] Anesthesia Noteon 02-04-2019 Anesthesia Note Patient: SHEY [...] Problems Chronic back pain / SNOMED CT 522418780 / Confirmed Former smoker / SNOMED CT 97020690 / Confirmed GERD (gastroesophageal reflux disease) / SNOMED CT 205247025 / Confirmed Scar tissue / SNOMED CT 243676599 / Confirmed Sleep apnea / SNOMED CT 954658794 / Confirmed Histories Family History: No family history items have been selected or recorded. Procedure history: Tonsillectomy ([id number]). Epidural injection of lumbar spine using fluoroscopic guidance ([id number]). Social History Alcohol Assessment Use: Current. Beer, [...] rhythm. Review / Management Laboratory Results Plan [employer]#(ASA ) physical status classification: [...] on: 02/04/2019 15:44 EDT] Alirio Mcclellan MD [facility] Inpatient Patient Summaryon 02-04-2019 [place] [address] Patient Discharge Instructions Name: SHEY OBRIEN : 52 Patient Address: [address] [place] [address] Primary Care Provider: Name: LATRELL JACK After you are discharged if you find you have any questions, please, call [phone] ext [phone] to speak to a nurse. Discharge Diagnosis: [...] contact the Mental Health & Recovery Board [facility] 30/01 Crisis Hotline -Text 4HELK jw [id number]. If you received any narcotics, sedation, or [...] business decisions or sign any legal documents [facility] would like to thank you for allowing us to assist you with your healthcare needs. The following includes patient education materials and information regarding your injury/illness. SHEY OBRIEN has been given the following list of follow-up instructions, prescriptions, and patient education materials: Follow-up Instructions With: Address: When: Daquan Antunez [address] [place] [address], [address] [place] [address] Business (2) 02/12/2019 2:00 PM With: Address: When: LATRELL JACK [address] [place] [address] Abd[place], [place] [id number] Business (1) Medications During the course of [...] awake -DO NOT lift heavy objects or dairy consultant forcefully with the affected hand -DO [...] or concerns, please call the office at [phone] or go to the emergency room -Follow [...] for Disease Control and Prevention March 2014 [facility] MAGR Postoperative Recordon 02-04-2019 [facility] Postoperative Record MAGR Phase II Record Summary Primary Physician: Daquan Antunez DO Finalized Date/Time: 02/04/19 17:11:50 Pt. Name: SHEY OBRIEN/Sex: 1950 FEMALE Med Rec #: [id number] Physician: Daquan Antunez DO Financial #: [id number] Pt. Type: D Room/Bed: / Admit/Disch: 02/04/19 [...] Signed By: Jamil Garibay RN 02/04/19 17[facility]11 [facility]-04[facility]2019 [facility] Preoperative Record [facility] Pre-Op Record Summary Primary Physician: Daquan Antunez DO Finalized Date/Time: 02/04/19 15:37:19 Pt. Name: KARYNSHEY/Sex: 1950 FEMALE Med Rec #: [id number] Physician: Daquan Antunez DO Financial #: [id number] Pt. Type: D Room/Bed: / Admit/Disch: 02/04/19 [...] By: Toshia Plascencia RN 02/04/19 15:37 Normal [facility] Operative Report - Surgeon/P shalini 02-04-2019 Operative [...] on: 02/04/2019 16:37 EDT] Daquan Antunez DO [facility] Patient Handouton 02-04-[address] OHARA POST OPERATIVE INSTRUCTIONS FOR FINGER SURGERY/MALLET FINGER REPAIR SURGEONS WRITTEN INSTRUTCTIONS:' -Keep your hand elevated above your elbow for the first 24 hours after surgery and apply an ice bag at intervals for the first 24 hours -Wiggle the unaffected fingers frequently while awake -DO NOT lift heavy objects or dairy consultant forcefully with the affected hand -DO [...] or concerns, please call the office at [phone] or go to the emergency room -Follow up as scheduled [facility] Progress Note - Nurseon 01-08 Progress Note - Nurse Spoke with pt regarding arrival time of 1145 and NPO status. Verbalized understanding. Pt instructed she will need a cab driver. Verbalized understanding. [Electronically Signed on: 02/01/2019 14:53 EDT] Kika Akers RN [Verified on: 02/01/2019 14:53 EDT] Kika Akers RN [facility] Coding Summaryon 01-29-2019 Coding Summary CODING DATE: 01/29/[address] [facility] STATUS: Home PAYOR: Medicare MC APC [...] Cueto Date Saved: 01/29/2019 01:42 pm Normal [facility] .Auto Diff 1on 01-28-2019 Auto Steele % 8 % Normal 1-12 [facility] Comment on above: Performed By: #### 7 [id number], [id number] #### [facility] (DEFAULT) [address] [place] [address] 40740 Baso Abs# 0.0 x10 Normal 0.0-0.2 [facility] Comment on above: Performed By: #### 7 [id number], [id number] #### [facility] (DEFAULT) [address] [place] [address] 06425 Basophils/100 WBC (Bld) 0.4 % Normal 0.2-2.0 [facility] Comment on above: Performed By: #### 7 [id number], [id number] #### [facility] (DEFAULT) [address] [place] [address] 04097 Eos Abs# 0.2 x10 Normal 0.0-0.4 [facility] Comment on above: Performed By: #### 7 [id number], [id number] #### [facility] (DEFAULT) [address] [place] [address] 25561 Eosinophils/100 WBC (Bld) 3.5 % Normal 0.9-4.0 [facility] Comment on above: Performed By: #### 7 [id number], [id number] #### [facility] (DEFAULT) [address] [place] [address] 04569 Lymphocytes (Bld) [#/Vol] 1.6 x10 Normal 1.3-2.9 [facility] Comment on above: Performed By: #### 7 [id number], [id number] #### [facility] (DEFAULT) [address] [place] [address] 10276 Lymphocytes/100 WBC (Bld) 32 % Normal 14-48 [facility] Comment on above: Performed By: #### 7 [id number], [id number] #### [facility] (DEFAULT) [address] [place] [address] 88630 Steele Abs# 0.4 x10 Normal 0.0-0.8 [facility] Comment on above: Performed By: #### 7 [id number], [id number] #### [facility] (DEFAULT) [address] [place] [address] 41924 Neut Abs# 2.8 x10 Normal 1.5-9.2 [facility] Comment on above: Performed By: #### 7 [id number], [id number] #### [facility] (DEFAULT) [address] [place] [address] 12076 Neutrophils/100 WBC (Bld) 56 % Normal 44-88 [facility] Comment on above: Performed By: #### 7 [id number], [id number] #### [facility] (DEFAULT) [address] [place] [address] 21741 CBC w/ Auto Diffon 9 Erythrocyte distribution width (RBC) [Ratio] 13.4 % Normal 11.5-15.0 [facility] Comment on above: Performed By: #### 7 [id number], [id number] #### [facility] (DEFAULT) [address] [place] [address] 12179 Hematocrit (Bld) [Volume fraction] 40.4 % Normal 33.7-40.4 [facility] Comment on above: Performed By: #### 7 [id number], [id number] #### [facility] (DEFAULT) [address] [place] [address] 92187 Hemoglobin (Bld) [Mass/Vol] 13.9 g/dL Normal 11.3-15.9 [facility] Comment on above: Performed By: #### 7 [id number], [id number] #### [facility] (DEFAULT) [address] [place] [address] 11675 Man Diff? Auto Normal [facility] Comment on above: Performed By: #### 7 [id number], [id number] #### [facility] (DEFAULT) [address] [place] [address] 10432 MCH (RBC) [Entitic mass] 31 pg Normal 24-34 [facility] Comment on above: Performed By: #### 7 [id number], [id number] #### [facility] (DEFAULT) [address] [place] [address] 96324 MCHC (RBC) [Mass/Vol] 34 g/dL Normal 26-37 [facility] Comment on above: Performed By: #### 7 [id number], [id number] #### [facility] (DEFAULT) [address] [place] [address] 25869 MCV (RBC) [Entitic vol] 90 fL Normal 81-100 [facility] Comment on above: Performed By: #### 7 [id number], [id number] #### [facility] (DEFAULT) [address] [place] [address] 39737 Platelet mean volume (Bld) [Entitic vol] 10.3 fL High 6.3-10.2 [facility] Comment on above: Performed By: #### 7 [id number], [id number] #### [facility] (DEFAULT) [address] [place] [address] 69795 Platelets (Bld) [#/Vol] 199 x10 Normal 138-427 [facility] Comment on above: Performed By: #### 7 [id number], [id number] #### [facility] (DEFAULT) [address] [place] [address] 05780 RBC (Bld) [#/Vol] 4.47 x10 Normal 3.70-5.30 [facility] Comment on above: Performed By: #### 7 [id number], [id number] #### [facility] (DEFAULT) [address] [place] [address] 63338 WBC (Bld) [#/Vol] 5.1 x10 Normal 3.5-10.5 [facility] Comment on above: Performed By: #### 7 [id number], [id number] #### [facility] (DEFAULT) [address] [place] [address] 29152 Vital Signs Date Time Vital Sign Value Performing Clinician Facility 02-24-2025 11:00-0400 Body height 160 cm Latrell Jack MD Work Phone: [facility] 02-24-2025 11:00-0400 Body mass index (BMI) [Ratio] 40.03 kg/m2 Latrell Jack MD Work Phone: [facility] 02-24-2025 11:00-0400 Body temperature 97.11 [degF] Latrell Jack MD Work Phone: [facility] 02-24-2025 11:00-0400 Body weight 102.51 kg Latrell Jack MD Work Phone: [facility] 02-24-2025 11:00-0400 Diastolic blood pressure 76 mm[Hg] Latrell Jack MD Work Phone: [facility] 02-24-2025 11:00-0400 Heart rate 106 /min Latrell Jack MD Work Phone: [facility] 02-24-2025 11:00-0400 Respiratory rate 22 /min Latrell Jack MD Work Phone: [facility] 02-24-2025 11:00-0400 SaO2% (BldA) [Mass fraction] 95 % Latrell Jack MD Work Phone: [facility] 02-24-2025 11:00-0400 Systolic blood pressure 162 mm[Hg] Latrell Jack MD Work Phone: [facility] 02-03-2025 15:56-0400 Body height 160.02 cm Latrell Jack MD Work Phone: [facility] 02-03-2025 15:56-0400 Body mass index (BMI) [Ratio] 38.4 kg/m2 Latrell Jack MD Work Phone: [facility] 02-03-2025 15:56-0400 Body weight 98.42 kg Latrell Jack MD Work Phone: [facility] 02-03-2025 15:56-0400 Diastolic blood pressure 96 mm[Hg] Latrell Jack MD Work Phone: [facility] 02-03-2025 15:56-0400 Heart rate 90 /min Latrell Jack MD Work Phone: [facility] 02-03-2025 15:56-0400 SaO2% (BldA) [Mass fraction] 92 % Latrell Jack MD Work Phone: [facility] 02-03-2025 15:56-0400 Systolic blood pressure 164 mm[Hg] Latrell Jack MD Work Phone: [facility] 12-16-2024 15:53-0400 Body temperature 98.2 [degF] Latrell Jack MD Work Phone: [facility] 12-16-2024 15:53-0400 Heart rate 84 /min Latrell Jack MD Work Phone: [facility] 12-16-2024 15:53-0400 Respiratory rate 18 /min Latrell Jack MD Work Phone: [facility] 12-16-2024 15:53-0400 SaO2% (BldA) [Mass fraction] 99 % Latrell Jack MD Work Phone: [facility] 12-16-2024 14:15-0400 Diastolic blood pressure 72 mm[Hg] Latrell Jack MD Work Phone: [facility] 12-16-2024 14:15-0400 Systolic blood pressure 144 mm[Hg] Latrell Jack MD Work Phone: [facility] 12-16-2024 09:00-0400 Body weight 100.3 kg Latrell Jack MD Work Phone: [facility] 12-13-2024 14:41-0400 Body height 160.02 cm Latrell Jack MD Work Phone: [facility] 12-04-2024 13:39-0400 Body height 160 cm Latrell Jack MD Work Phone: [facility] 12-04-2024 13:39-0400 Body mass index (BMI) [Ratio] 38.97 kg/m2 Latrell Jack MD Work Phone: [facility] 12-04-2024 13:39-0400 Body temperature 97.3 [degF] Latrell Jack MD Work Phone: [facility] 12-04-2024 13:39-0400 Body weight 99.79 kg Latrell Jack MD Work Phone: [facility] 12-04-2024 13:39-0400 Diastolic blood pressure 92 mm[Hg] Latrell Jack MD Work Phone: [facility] 12-04-2024 13:39-0400 Heart rate 97 /min aLtrell Jack MD Work Phone: [facility] 12-04-2024 13:39-0400 Respiratory rate 22 /min Latrell Jack MD Work Phone: [facility] 12-04-2024 13:39-0400 SaO2% (BldA) [Mass fraction] 97 % Latrell Jack MD Work Phone: [facility] 12-04-2024 13:39-0400 Systolic blood pressure 186 mm[Hg] Latrell Jack MD Work Phone: [facility] 08-27-2024 10:25-0500 Body height 160 cm Latrell Jack MD Work Phone: [facility] 08-27-2024 10:25-0500 Body mass index (BMI) [Ratio] 36.14 kg/m2 Latrell Jack MD Work Phone: [facility] 08-27-2024 10:25-0500 Body temperature 95.9 [degF] Latrell Jack MD Work Phone: [facility] 08-27-2024 10:25-0500 Body weight 92.53 kg Latrell Jack MD Work Phone: [facility] 08-27-2024 10:25-0500 Diastolic blood pressure 68 mm[Hg] Latrell Jack MD Work Phone: [facility] 08-27-2024 10:25-0500 Heart rate 50 /min Latrell Jack MD Work Phone: [facility] 08-27-2024 10:25-0500 Respiratory rate 22 /min Latrell Jack MD Work Phone: [facility] 08-27-2024 10:25-0500 SaO2% (BldA) [Mass fraction] 97 % Latrell Jack MD Work Phone: [facility] 08-27-2024 10:25-0500 Systolic blood pressure 140 mm[Hg] Latrell Jack MD Work Phone: [facility] 08-07-2024 14:04-0500 Body height 162.6 cm [employer]ONE POLISHER.DIRECTOR HOME HEALTH Work Phone: [facility] 08-07-2024 14:04-0500 Body mass index (BMI) [Ratio] 34.84 kg/m2 [employer] HAND STONE POLISHER.DIRECTOR HOME HEALTH Work Phone: [facility] 08-07-2024 14:04-0500 Body temperature 97.59 [degF] Katarzyna Miles HAND STONE POLISHER.DIRECTOR HOME HEALTH Work Phone: [facility] 08-07-2024 14:04-0500 Body weight 92.08 kg Katarzyna Locket HAND STONE POLISHER.DIRECTOR HOME HEALTH Work Phone: [facility] 08-07-2024 14:04-0500 Diastolic blood pressure 72 mm[Hg] Katarzyna Miles HAND STONE POLISHER.DIRECTOR HOME HEALTH Work Phone: [facility] 08-07-2024 14:04-0500 Heart rate 75 /min [employer] HAND STONE POLISHER.DIRECTOR HOME HEALTH Work Phone: [facility] 08-07-2024 14:04-0500 Systolic blood pressure 151 mm[Hg] Katarzyna Miles HAND STONE POLISHER.DIRECTOR HOME HEALTH Work Phone: [facility] 07-23-2024 12:49-0500 Body height 160 cm Pacc 5 Work Phone: [facility] 07-23-2024 12:49-0500 Body mass index (BMI) [Ratio] 37.45 kg/m2 Pacc 5 Work Phone: [facility] 07-23-2024 12:49-0500 Body temperature 98.01 [degF] Pacc 5 Work Phone: [facility] 07-23-2024 12:49-0500 Body weight 95.9 kg Pacc 5 Work Phone: [facility] 07-23-2024 12:49-0500 Diastolic blood pressure 73 mm[Hg] Pacc 5 Work Phone: [facility] 07-23-2024 12:49-0500 Heart rate 77 /min Pacc 5 Work Phone: [facility] 07-23-2024 12:49-0500 Respiratory rate 20 /min Pacc 5 Work Phone: [facility] 07-23-2024 12:49-0500 SaO2% (BldA) [Mass fraction] 99 % Pacc 5 Work Phone: [facility] 07-23-2024 12:49-0500 Systolic blood pressure 153 mm[Hg] Pac 5 Work Phone: [facility] 05-30-2024 15:36-0500 Body height 160 cm Sandra Arcos REGISTRATION OFFICER Work Phone: [facility] 05-30-2024 15:36-0500 Body mass index (BMI) [Ratio] 38.26 kg/m2 Sandra Arcos REGISTRATION OFFICER Work Phone: [facility] 05-30-2024 15:36-0500 Body weight 97.98 kg Sandra Arcso REGISTRATION OFFICER Work Phone: [facility] 05-30-2024 15:36-0500 Diastolic blood pressure 82 mm[Hg] Sandra Arcos REGISTRATION OFFICER Work Phone: [facility] 05-30-2024 15:36-0500 Systolic blood pressure 138 mm[Hg] Sandra Arcos REGISTRATION OFFICER Work Phone: [facility] 05-15-2024 10:02-0500 Body height 160 cm Latrell Jack MD Work Phone: [facility] 05-15-2024 10:02-0500 Body mass index (BMI) [Ratio] 38.26 kg/m2 Latrell Jack MD Work Phone: [facility] 05-15-2024 10:02-0500 Body temperature 97.11 [degF] Latrell Jack MD Work Phone: [facility] 05-15-2024 10:02-0500 Body weight 97.98 kg Latrell Jack MD Work Phone: [facility] 05-15-2024 10:02-0500 Diastolic blood pressure 80 mm[Hg] Latrell Jack MD Work Phone: [facility] 05-15-2024 10:02-0500 Heart rate 78 /min Latrell Jack MD Work Phone: [facility] 05-15-2024 10:02-0500 Respiratory rate 22 /min Latrell Jack MD Work Phone: [facility] 05-15-2024 10:02-0500 SaO2% (BldA) [Mass fraction] 97 % Latrell Jack MD Work Phone: [facility] 05-15-2024 10:02-0500 Systolic blood pressure 148 mm[Hg] Latrell Jack MD Work Phone: [facility] 04-29-2024 10:55-0400 Body height 152.4 cm Xavier Boyd MD Work Phone: [facility] 04-29-2024 10:55-0400 Body mass index (BMI) [Ratio] 42.58 kg/m2 Xavier Boyd MD Work Phone: [facility] 04-29-2024 10:55-0400 Body temperature 98.49 [degF] Xavier Boyd MD Work Phone: [facility] 04-29-2024 10:55-0400 Body weight 98.88 kg Xavier Boyd MD Work Phone: [facility] 04-29-2024 10:55-0400 Diastolic blood pressure 65 mm[Hg] Xavier Boyd MD Work Phone: [facility] 04-29-2024 10:55-0400 Heart rate 90 /min Xavier Boyd MD Work Phone: [facility] 04-29-2024 10:55-0400 Systolic blood pressure 144 mm[Hg] Xavier Boyd MD Work Phone: [facility] 03-20-2024 13:23-0400 Diastolic blood pressure 81 mm[Hg] Leos Sarmini [facility] 03-20-2024 13:23-0400 Heart rate 66 /min Leos Sarmini [facility] 03-20-2024 13:23-0400 Mean blood pressure 112 mm[Hg] Leos Sarmini [facility] 03-20-2024 13:23-0400 Respiratory rate 15 /min Leos Sarmini [facility] 03-20-2024 13:23-0400 SaO2% (BldA) [Mass fraction] 94 % Leos Sarmini [facility] 03-20-2024 13:23-0400 Systolic blood pressure 173 mm[Hg] Leos Sarmini [facility] 03-20-2024 13:15-0400 Diastolic blood pressure 78 mm[Hg] Leos Sarmini [facility] 03-20-2024 13:15-0400 Heart rate 64 /min Leos Sarmini [facility] 03-20-2024 13:15-0400 Mean blood pressure 105 mm[Hg] Leos Sarmini [facility] 03-20-2024 13:15-0400 Respiratory rate 13 /min Leos Sarmini [facility] 03-20-2024 13:15-0400 SaO2% (BldA) [Mass fraction] 96 % Leos Sarmini [facility] 03-20-2024 13:15-0400 Systolic blood pressure 159 mm[Hg] Leos Sarmini [facility] 03-20-2024 13:05-0400 Diastolic blood pressure 76 mm[Hg] Leos Sarmini [facility] 03-20-2024 13:05-0400 Heart rate 64 /min Leos Sarmini [facility] 03-20-2024 13:05-0400 Mean blood pressure 99 mm[Hg] Leos Sarmini [facility] 03-20-2024 13:05-0400 Respiratory rate 12 /min Leos Sarmini [facility] 03-20-2024 13:05-0400 SaO2% (BldA) [Mass fraction] 96 % Leos Sarmini [facility] 03-20-2024 13:05-0400 Systolic blood pressure 145 mm[Hg] Leos Sarmini [facility] 03-20-2024 12:58-0400 Body temperature 97.16 [degF] Leos Sarmini [facility] 03-20-2024 12:50-0400 Respiratory rate 15 /min Leos Sarmini [facility] 03-20-2024 12:45-0400 Respiratory rate 18 /min Leos Sarmini [facility] 03-20-2024 11:14-0400 Blood Pressure Location Leos Sarmini [facility] 03-20-2024 11:14-0400 Body temperature 97.7 [degF] Leos Sarmini [facility] 03-20-2024 11:14-0400 Respiratory rate 18 /min Leos Sarmini [facility] 03-07-2024 11:21-0400 Body height 160 cm Diomedes Amilcar DO Work Phone: [facility] 03-07-2024 11:21-0400 Body mass index (BMI) [Ratio] 44.46 kg/m2 Diomedes Amilcar DO Work Phone: [facility] 03-07-2024 11:21-0400 Body weight 113.85 kg Diomedes Amilcar DO Work Phone: [facility] 03-07-2024 11:21-0400 Diastolic blood pressure 88 mm[Hg] Diomedes Amilcar DO Work Phone: [facility] 03-07-2024 11:21-0400 Heart rate 84 /min Diomedes Amilcar DO Work Phone: [facility] 03-07-2024 11:21-0400 SaO2% (BldA) [Mass fraction] 94 % Diomedes Amilcar DO Work Phone: [facility] 03-07-2024 11:21-0400 Systolic blood pressure 146 mm[Hg] Diomedes Amilcar DO Work Phone: [facility] 02-26-2024 09:12-0400 Blood Pressure Location Leos Ameyamini [facility] 02-26-2024 09:12-0400 Diastolic blood pressure 81 mm[Hg] Leos Sarmini [facility] 02-26-2024 09:12-0400 Heart rate 66 /min Leos Sarmini [facility] 02-26-2024 09:12-0400 Respiratory rate 16 /min Leos Sarmini [facility] 02-26-2024 09:12-0400 Systolic blood pressure 131 mm[Hg] Leos Sarmini [facility] 10-13-2023 09:42-0400 Diastolic blood pressure 80 mm[Hg] Pa NILL [facility] 10-13-2023 09:42-0400 Heart rate 69 /min Pa NILL [facility] 10-13-2023 09:42-0400 Mean blood pressure 102 mm[Hg] Pa NILL [facility] 10-13-2023 09:42-0400 Respiratory rate 15 /min Pa NILL [facility] 10-13-2023 09:42-0400 SaO2% (BldA) [Mass fraction] 97 % Pa NILL [facility] 10-13-2023 09:42-0400 Systolic blood pressure 146 mm[Hg] Pa NILL [facility] 10-13-2023 09:32-0400 Diastolic blood pressure 76 mm[Hg] Pa NILL [facility] 10-13-2023 09:32-0400 Heart rate 67 /min Pa NILL [facility] 10-13-2023 09:32-0400 Mean blood pressure 94 mm[Hg] Pa NILL [facility] 10-13-2023 09:32-0400 Respiratory rate 20 /min Pa NILL [facility] 10-13-2023 09:32-0400 SaO2% (BldA) [Mass fraction] 95 % Pa NILL [facility] 10-13-2023 09:32-0400 Systolic blood pressure 129 mm[Hg] Pa NILL [facility] 10-13-2023 09:27-0400 Diastolic blood pressure 71 mm[Hg] Pa NILL [facility] 10-13-2023 09:27-0400 Heart rate 70 /min Pa NILL [facility] 10-13-2023 09:27-0400 Mean blood pressure 92 mm[Hg] Pa NILL [facility] 10-13-2023 09:27-0400 Respiratory rate 15 /min Pa NILL [facility] 10-13-2023 09:27-0400 SaO2% (BldA) [Mass fraction] 96 % Pa NILL [facility] 10-13-2023 09:27-0400 Systolic blood pressure 134 mm[Hg] Pa NILL [facility] 10-13-2023 09:17-0400 Body temperature 97.16 [degF] Pa NILL [facility] 10-13-2023 09:10-0400 Respiratory rate 16 /min Pa PALMEREmily [facility] 10-13-2023 09:05-0400 Respiratory rate 16 /min Pa WEBB [facility] 10-13-2023 08:03-0400 Body temperature 97.34 [degF] Pa WEBB [facility] 08-11-2023 09:53-0500 Body height 160 cm Latrell Jack MD Work Phone: [facility] 08-11-2023 09:53-0500 Body mass index (BMI) [Ratio] 40.39 kg/m2 Latrell Jack MD Work Phone: [facility] 08-11-2023 09:53-0500 Body temperature 97.11 [degF] Latrell Jack MD Work Phone: [facility] 08-11-2023 09:53-0500 Body weight 103.42 kg Latrell Jack MD Work Phone: [facility] 08-11-2023 09:53-0500 Diastolic blood pressure 70 mm[Hg] Latrell Jack MD Work Phone: [facility] 08-11-2023 09:53-0500 Heart rate 94 /min Latrell Jack MD Work Phone: [facility] 08-11-2023 09:53-0500 SaO2% (BldA) [Mass fraction] 97 % Latrell Jack MD Work Phone: [facility] 08-11-2023 09:53-0500 Systolic blood pressure 140 mm[Hg] Latrell Jack MD Work Phone: [facility] Healthcare Encounters Encounter Date Encounter Type Care Provider Facility Start: 02-27-2025 End: 02-27-2025 Clinisync Result Encounter Latrell Jack MD Work Phone: [facility] External Department Unsolicited Start: 02-27-2025 End: 02-27-2025 Clinisync Result Encounter Latrell Jack MD Work Phone: [facility] External Department Unsolicited Start: 02-24-2025 End: 02-24-2025 Bamboo flowsheet Latrell Jack MD Work Phone: [facility] Start: 02-24-2025 End: 02-24-2025 Bamboo flowsheet Latrell Jack MD Work Phone: [facility] Start: 02-24-2025 End: 02-24-2025 Office [...] 02-03-2025 ambulatory Latrell Jack MD Work Phone: [facility] Work Phone: Start: 02-03-2025 End: 02-03-2025 Patient encounter procedure Diomedes Fitzgerald DO -[facility] [place] Work Phone: Start: 12-30-2024 End: 12-30-2024 ambulatory Talat Arguello MD Facility:[facility] Start: 12-13-2024 Non-patient / Non-visit Latrell kendall MD Work Phone: [facility] Work Phone: Start: 12-12-2024 End: 12-16-2024 Evaluation and management of inpatient Latrell Jack MD Work Phone: [facility] Work Phone: Start: 12-12-2024 End: 12-12-2024 Clinisync Result Encounter Generic External Data Provider [facility] External Department Unsolicited Start: 12-12-2024 End: 12-12-2024 Clinisync Result Encounter Generic External Data Provider [facility] External Department Unsolicited Start: 12-12-2024 End: 12-12-2024 Emergency department patient visit Elmer Danilo Kohli Facility:[facility] Start: 12-04-2024 End: 12-04-2024 Office outpatient visit 15 minutes Latrell Jack MD Work Phone: [facility] Comment on above: Degenerative lumbar spinal stenosis (Primary Dx); Chronic obstructive pulmonary disease, unspecified COPD type (CMS/HCC) Start: 12-04-2024 End: 12-04-2024 ambulatory LATRELL JACK Not Available Start: 10-30-2024 End: 10-30-2024 Refill Latrell Jakc MD Work Phone: [facility] Comment [...] disease, unspecified COPD type (CMS/HCC); 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) Start: 08-07-2024 End: 08-07-2024 Patient encounter procedure Katarzyna Snyder ISSAC Work Phone: General Surgery Comment on above: Postoperative visit (Primary Dx) Start: 08-07-2024 End: 08-07-2024 ambulatory KATARZYNA CLAUDIO Facility:[facility] Start: 07-31-2024 End: 07-31-2024 Telephone encounter Latrell Jack MD Work Phone: [facility] Start: 07-30-2024 End: 07-30-2024 Refill Latrell Jack MD Work Phone: [facility] Comment on above: Primary insomnia Start: 07-24-2024 End: 07-26-2024 Evaluation and management of inpatient XAVIER GRETCHEN BOYD Facility:[facility] Start: 07-23-2024 End: 07-23-2024 ambulatory LATRELL JACK Facility:[facility] Start: 07-23-2024 End: 07-23-2024 Clinisync Result Encounter Generic External Data Provider [facility] External Department Unsolicited Start: 07-23-2024 End: 07-23-2024 Clinisync Result Encounter Generic External Data Provider [facility] External Department Unsolicited Start: 07-23-2024 End: 07-23-2024 Subsequent hospital visit by physician Xr Chest Main A21 Radiology Comment on above: Pre-op evaluation [Z 01.818] Start: 07-23-2024 End: 07-23-2024 Admission to establishment Pac Main 5 Work Phone: Pre Anesthesia Start: 07-23-2024 End: 07-23-2024 Anesthesia consultation [facility] Work Phone: Pre Anesthesia Comment on [...] Start: 07-23-2024 End: 07-23-2024 Preprocedural examination done [place] [address] Work Phone: [facility] Work Phone: Start: 07-23-2024 End: 07-23-2024 ambulatory LATRELL JACK Facility:[facility] Start: 07-23-2024 Encounter for other preprocedural examination LATRELL JACK [facility] Start: 06-29-2024 End: 07-15-2024 Telephone encounter Sandra Arcos NP Work Phone: [facility] [address] Start: 06-24-2024 End: 06-24-2024 ambulatory Talat Arguello MD Facility: [place] Start: 06-13-2024 End: 06-13-2024 Telephone encounter [facility]ll [facility] MD [facility] Comment on above: Medication Question Start: 06-10-2024 End: 06-10-2024 ambulatory Talat Arguello MD Facility: [place] Start: 05-30-2024 End: 05-30-2024 Office outpatient visit 25 minutes Sandra Arcos NP Work Phone: [facility] [address] Comment on above: Memory loss (Primary Dx); Severe episode of recurrent major depressive disorder, 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); Generalized anxiety disorder (CMS/HCC); EDWIN on CPAP; Other chronic pain; Other insomnia Start: 05-30-2024 End: 05-30-2024 ambulatory SANDRA ARCOS Not Available Start: 05-30-2024 End: 05-30-2024 Bamboo flowsheet Sandra Gillfrancisca REGISTRATION OFFICER Work Phone: [facility] Start: 05-30-2024 End: 05-30-2024 Bamboo flowsheet Sandra Gillfrancisca REGISTRATION OFFICER Work Phone: [facility] Start: 05-27-2024 End: 05-27-2024 ambulatory Talat Arguello MD Facility:[facility] Start: 05-15-2024 End: 05-15-2024 Office outpatient visit 25 minutes Latrell Jack MD Work Phone: [facility] Comment on above: Essential hypertensi on, [...] End: 05-06-2024 ambulatory Talat Arguello MD Facility: [place] Start: 05-04-2024 End: 05-06-2024 ambulatory Xavier Boyd MD Work Phone: [facility] Comment on above: 07.24.24 Cure (Lap P araesophageal Hernia Repair/EGD 4 hours los 1) Start: 05-04-2024 End: 05-06-2024 Preprocedural examination done Xavier Boyd MD Work Phone: [facility] Start: 04-29-2024 End: 04-29-2024 ambulatory LEOS TALAL AMEYAMINI Facility:[facility] Start: 04-29-2024 End: 04-29-2024 Office outpatient new 45 minutes Xavier Boyd MD Work Phone: General Surgery Comment on above: Paraesophageal herni a (Primary Dx) Start: 04-22-2024 End: 04-22-2024 Telephone encounter Ashlie Calderon MA General Surgery Start: 04-15-2024 End: 04-15-2024 ambulatory Talat Arguello MD Facility:[facility] Start: 04-11-2024 End: 04-11-2024 Patient encounter procedure Mao Morrow PhD Work Phone: [facility] Comment on above: Memory loss (Primary Dx); Word finding difficulty; EDWIN on CPAP; Other insomnia; Other chronic pain; Generalized anxiety disorder (CMS/HCC); Severe episode of recurrent major depressive disorder, 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) Start: 04-11-2024 End: 04-11-2024 ambulatory LATRELL GUERO Not Available Start: 03-26-2024 End: 03-26-2024 Patient encounter procedure Mao Morrow PhD Work Phone: [facility] Comment on above: Memory loss (Primary Dx); Word finding difficulty; EDWIN on CPAP; Other insomnia; Other chronic pain; Generalized anxiety disorder (CMS/HCC) Start: 03-26-2024 End: 03-26-2024 ambulatory MAO MORROW Not Available Start: 03-26-2024 End: 03-26-2024 Bamboo flowsheet Mao Morrow PhD Work Phone: [facility] Start: 03-26-2024 End: 03-26-2024 Bambopaco flowskevin Morrow PhD Work Phone: [facility] Start: 03-26-2024 End: 03-26-2024 ambulatory Leos Talal Ameyamini Facility:[facility] Start: 03-26-2024 End: 03-26-2024 Patient encounter procedure Katie Torres Ameyaalberto [facility] Start: 03-25-2024 End: 03-25-2024 ambulatory DIOMEDES FITZGERALD Not Available Start: 03-20-2024 End: 03-20-2024 ambulatory Katie Houmini Facility:[facility] Start: 03-20-2024 End: 03-20-2024 Patient encounter procedure Katie Hairston [facility] Start: 03-07-2024 End: 03-07-2024 Bamboo flowsheet Diomedes Fitzgerald DO Work Phone: [facility] [address] Start: 03-07-2024 End: 03-07-2024 Bamboo flowsheet Diomedes Fitzgerald DO Work Phone: [employer] [address] Start: 03-07-2024 End: 03-07-2024 Clinisync Result Encounter Diomedes Fitzgerald DO Work Phone: [facility] External Department Unsolicited Start: 03-07-2024 End: 03-07-2024 Office outpatient visit 40 minutes Diomedes Fitzgerald DO Work Phone: [employer] [address] Comment on above: Memory loss (Primary Dx); 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CMS/HCC); Mild cognitive impairment; EDWIN (obstructive sleep apnea) Start: 03-07-2024 End: 03-07-2024 ambulatory DIOMEDES FITZGERALD Not Available Start: 02-26-2024 End: 02-26-2024 ambulatory Katie Flowersi Facility:[facility] Start: 02-26-2024 End: 02-26-2024 Patient encounter procedure Katie Hairston [facility] Start: 02-13-2024 ambulatory Pa WEBB Facility:[facility] Start: 10-13-2023 End: 10-13-2023 ambulatory Pa WEBB Facility:[facility] Start: 10-13-2023 End: 10-13-2023 Patient encounter procedure Pa WEBB [facility] Start: 09-12-2023 End: 09-12-2023 ambulatory Pa WEBB Facility: [place] Start: 09-05-2023 ambulatory Pa WEBB [facility] Start: 08-11-2023 Bamboo flowsheet Latrell Jack MD [...] Encounter for preprocedural laboratory examination MARNIE PEMBERTON [facility] Start: 09-07-2021 End: 09-07-[address] LATRELL JACK Facility:[facility] Start: 09-07-2021 End: 09-07-2021 Encounter for preprocedural laboratory examination DR LATRELL JACK Facility:[facility] Start: 09-03-2021 Encounter for preprocedural cardiovascular examination MARNIE PEMBERTON [facility] Start: 09-02-2021 End: 09-03-[address] LATRELL JACK Facility:[facility] Start: 09-02-2021 End: 09-03-2021 Encounter for preprocedural cardiovascular examination DR LATRELL JACK Facility:[facility] Procedures Date Procedure Procedure Detail Performing Clinician Start: 02-27-2025 MM TOMOSYNTHESIS SCREENING BI Latrell hobbs MD Work Phone: Start: 02-27-2025 Mammography Latrell Jack MD Work Phone: Start: 12-12-2024 XR HIP LT MIN 2V Generic External Data Provider Start: 08-27-2024 ALL CBC WITH AUTO DIFF Latrell Jack MD Work Phone: Start: 07-23-2024 Antibody screen LATRELL JACK Comment on above: Order Comment: Specimen Type: BLOOD SPEC IMEN Ordering Facility: [facility] Address: [address] [place] [address] Performed By: #### 2 [id number], HSTNT, [id number], [id number] #### [facility] CLIA [id number] [address] [place] [address] [place] Start: 07-23-2024 [facility] CBC W AUTO DIFF BLD Generic External Data Provider Start: 03-20-2024 Esophagogastroduodenoscopy Katie Dorman ini Start: 03-07-2024 ALL FOLIC ACID Diomedes Fitzgerald [...] Screening for malign ant neoplasm of colon [facility] Start: 07-26-2027 [facility] Start: 07-23-2027 [facility] Start: 09-21-2026 RSV Vaccine (1 - 1-d ose 75+ series) RSV Vaccine (1 - 1-dose 75+ series) [facility] Start: 08-07-2025 End: 09-06-2025 CT Chest WO contrast CT CHEST WO IVCON Radiology Routine Postoperative visit Expected: 08/07/2025, Expires: 09/06/2025 [facility] Work Phone: Comment on above: Expected: 08/07/2025 , Expires: 09/06/2025 Start: 04-29-2025 End: 04-29-2025 Patient encounter procedure 04/29/2025 1:15 PM EDT Office Visit [facility] [address] [place] [phone] Latrell Jack MD [address] [place] [phone] [facility] Start: 03-10-2025 Influenza vaccination Influenza Vacc ine (#1) [facility] Start: 02-24-2025 End: 02-24-2026 CT Chest for screening WO contrast CT lung screening low dose Imaging Routine Former smoker Expected: 02/24/2025, Expires: 02/24/2026 [facility] Comment on above: Expected: 02/24/2025 , Expires: 02/24/2026 Start: 02-24-2025 End: 04-26-2026 MG Breast - bilateral Screening Bilateral screening mammogram Imaging Routine Breast cancer screening by mammogram Expected: 02/24/2025, Expires: 04/26/2026 [facility] Work Phone: Comment on above: Expected: 02/24/2025 , Expires: 04/26/2026 Start: 02-24-2025 End: 02-24-2025 [facility] Comment on above: Arrived Start: 02-03-2025 End: 02-03-2025 Patient encounter procedure 02/03/2025 4:00 PM EDT Office Visit [facility] [address] [place] [phone] Diomedes Fitzgerald DO [address] [place] [address] [facility] Start: 12-30-2024 End: 12-30-2024 Patient encounter procedure 12/30/2024 1:00 PM EDT Office Visit [facility] [address] [place] [phone] Diomedes Fitzgerald DO [address] [place] [address] [facility] Start: 12-16-2024 [facility] Start: 12-12-2024 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 Manager [facility] Start: 12-12-2024 Hospital admission [facility] Start: 11-27-2024 Screening for malign ant neoplasm of breast Mammogram [facility] Start: 09-26-2024 End: 09-26-2024 Patient encounter procedure [facility] [place] [address] Start: 08-27-2024 End: 08-27-2025 Basic metabolic 1998 panel - Serum or Plasma Basic metabolic panel Lab Routine Essential hypertension, benign (CMS/HCC) Expected: 08/27/2024 (Approximate), Expires: 08/27/2025 [facility] Comment on above: Expected: 08/27/2024 (Approximate), Expires: 08/27/2025 Start: 08-27-2024 End: 08-27-2025 CBC W Auto Differential panel - Blood CBC and differential Lab Routine Encounter for long-term (current) use of medications Expected: 08/27/2024 (Approximate), Expires: 08/27/2025 [facility] Comment on above: Expected: 08/27/2024 (Approximate), Expires: 08/27/2025 Start: 08-27-2024 End: 08-27-2025 Hemoglobin A1c/Hemoglobin.total in Blood Hemoglobin A1c Lab Routine Prediabetes Expected: 08/27/2024 (Approximate), Expires: 08/27/2025 [facility] Work Phone: Comment on above: Expected: 08/27/2024 (Approximate), Expires: 08/27/2025 Start: 08-27-2024 End: 08-27-2025 Hepatic function 2000 panel - Serum or Plasma Hepatic function panel Lab Routine Encounter for long-term (current) use of medications Expected: 08/27/2024 (Approximate), Expires: 08/27/2025 [facility] Comment on above: Expected: 08/27/2024 (Approximate), Expires: 08/27/2025 Start: 08-27-2024 End: 08-27-2025 Lipid 1996 panel - Serum or Plasma Lipid panel Lab Routine Dyslipidemia ([facility]) Expected: 08/27/2024 (Approximate), Expires: 08/27/2025 [facility] Comment on above: Expected: 08/27/2024 (Approximate), Expires: 08/27/2025 Start: 08-27-2024 End: 08-27-2025 Thyrotropin [Units/volume] in Serum or Plasma TSH Lab Routine Class 2 severe obesity due to excess calories with serious comorbidity and body mass index (BMI) of 36.0 to 36.9 in adult ([facility]/HCC) Expected: 08/27/2024 (Approximate), Expires: 08/27/2025 [facility] Comment on above: Expected: 08/27/2024 (Approximate), Expires: 08/27/2025 Start: 08-16-2024 End: 08-16-2024 Patient encounter procedure 08/16/2024 9:00 AM EST Office Visit [facility] [address] [place] [address] Latrell Jack MD [address] [place] [address] [facility] Start: 07-24-2024 End: 07-24-2024 Admission to same day surgery center 07/24/2024 10:51 AM EST - 07/24/2024 3:42 PM EST Surgery Admitting [address] [place] [address] Xavier Body MD [address] [place] [address] LAPAROSCOPIC RPR PARAESOPHAGEAL HERNIA W/O FUNDOPLASTY W/ [...] 07-10-2024 Advance Directive Discussion Advance Directive Discussion [facility] Start: 06-29-2024 End: 10-29-2024 aPTT in Platelet poor plasma by Coagulation assay ACTIVATED PARTIAL THROMBOPLASTIN TIME Lab Routine Preoperative examination Paraesophageal hernia Abnormal coagulation profile Expected: 06/29/2024, Expires: 10/29/2024 [facility] Comment on above: Expected: 06/29/2024 , Expires: 10/29/2024 Start: 06-29-2024 End: 10-29-2024 CBC W Auto Differential panel - Blood COMPLETE BLOOD COUNT AND DIFFERENTIAL Lab Routine Preoperative examination Paraesophageal hernia Expected: 06/29/2024, Expires: 10/29/2024 [facility] Comment on above: Expected: 06/29/2024 , Expires: 10/29/2024 Start: 06-29-2024 End: 10-29-2024 Comprehensive metabolic 2000 panel - Serum or Plasma COMPREHENSIVE METABOLIC PANEL Lab Routine Preoperative examination Paraesophageal hernia Expected: 06/29/2024, Expires: 10/29/2024 [facility] Comment on above: Expected: 06/29/2024 , Expires: 10/29/2024 Start: 06-29-2024 End: 10-29-2024 PT panel - Platelet poor plasma by Coagulation assay PROTHROMBIN TIME Lab Routine Preoperative examination Paraesophageal hernia Abnormal results of liver function studies Expected: 06/29/2024, Expires: 10/29/2024 [facility] Comment on above: Expected: 06/29/2024 , Expires: 10/29/2024 Start: 06-29-2024 End: 10-29-2024 TYPE AND SCREEN,30 DAY TYPE AND SCREEN,30 DAY Blood Bank Routine Preoperative examination Paraesophageal hernia Expected: 06/29/2024, Expires: 10/29/2024 [facility] Comment on above: Expected: 06/29/2024 , Expires: 10/29/2024 Start: 05-30-2024 End: 05-30-2024 Patient encounter procedure [facility] [address] Comment on above: Arrived Start: 05-15-2024 End: 05-15-2024 Patient encounter procedure 05/15/2024 10:00 AM EST Office Visit [facility] [address] [place] [address] Latrell Jack MD [address] [place] [address] [facility] Start: 04-29-2024 End: 04-29-2024 Patient encounter procedure 04/29/2024 11:00 AM EDT Office Visit General Surgery [address] [phone] Xavier Boyd MD [address] [place], [place] [phone] Hiatal Hernia General Surgery Comment on above: Hiatal Hernia Start: 04-11-2024 End: 04-11-2024 Patient encounter procedure 04/11/2024 9:00 AM EDT Office Visit [facility] [address] [facility] [place] [phone] [facility] Start: 03-26-2024 End: 03-26-2024 Patient encounter procedure 03/26/2024 2:30 PM EDT Office Visit [facility] [address] [facility] [place] [phone] Mao Morrow, PhD [address] [place] [id number] Arrived [facility] Comment on above: Arrived Start: 03-25-2024 End: 03-25-2024 Professional / ancillary services management 03/25/2024 8:45 AM EDT Ancillary Procedure [facility] [place] [address] [place] [address] [facility] [address] Start: 03-19-2024 End: 03-19-2024 Patient encounter procedure 03/19/2024 2:00 PM EDT Office Visit [facility] [address] [facility] [place] [phone] Mao Morrow, PhD [address] [place] [address] [facility] Start: 03-10-2024 Covid-19 Vaccine ( season) Covid-19 Vaccine ( season) [facility] Start: 03-10-2024 Covid-19 Vaccine ( season) Covid-19 Vaccine ( season) [facility] Start: 03-10-2024 Influenza vaccination Influenza Vacc ine (#1) [facility] Start: 03-07-2024 End: 03-07-2025 Cobalamin (Vitamin B12) [Mass/volume] in Serum or Plasma Vitamin B12 Lab Routine Memory loss Expected: 03/07/2024 (Approximate), Expires: 03/07/2025 [facility] Comment on above: Expected: 03/07/2024 (Approximate), Expires: 03/07/2025 Start: 03-07-2024 End: 03-07-2025 EEG awake or drowsy EEG awake or drowsy Neurology Routine Memory loss Expected: 03/07/2024 (Approximate), Expires: 03/07/2025 [facility] Work Phone: Comment on above: Expected: 03/07/2024 (Approximate), Expires: 03/07/2025 Start: 03-07-2024 End: 03-07-2025 Folate [Mass/volume] in Serum or Plasma Folate Lab Routine Memory loss Expected: 03/07/2024 (Approximate), Expires: 03/07/2025 [facility] Comment on above: Expected: 03/07/2024 (Approximate), Expires: 03/07/2025 Start: 03-07-2024 End: 03-07-2025 MR Brain WO contrast MR brain wo contrast Imaging Routine Memory loss Expected: 03/07/2024, Expires: 03/07/2025 [facility] Comment on above: Expected: 03/07/2024 , Expires: 03/07/2025 Start: 03-07-2024 End: 03-07-2025 Thyrotropin [Units/volume] in Serum or Plasma TSH Lab Routine Memory loss Expected: 03/07/2024 (Approximate), Expires: 03/07/2025 [facility] Comment on above: Expected: 03/07/2024 (Approximate), Expires: 03/07/2025 Start: 03-07-2024 End: 03-07-2024 Patient encounter procedure 03/07/2024 11:30 AM EDT Office Visit [facility] [place] [address] [place] [address] Diomedes Fitzgerald DO [address] [place] [address] 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CMS/HCC) [facility] [place] [address] Comment on above: 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CMS /HCC) Start: 02-09-2024 End: 02-09-2024 Patient encounter procedure 02/09/2024 9:45 AM EDT Office Visit [facility] [address] [place] [address] Latrell Jack MD [address] [place] [phone] [facility] Start: 08-11-2023 End: 08-11-2024 Basic metabolic 1998 panel - Serum or Plasma Basic metabolic panel Lab Routine Encounter for long-term (current) use of medications Expected: 08/11/2023 (Approximate), Expires: 08/11/2024 [facility] Comment on above: Expected: 08/11/2023 (Approximate), Expires: 08/11/2024 Start: 08-11-2023 End: 08-11-2024 CBC W Auto Differential panel - Blood CBC and differential Lab Routine Encounter for long-term (current) use of medications Expected: 08/11/2023 (Approximate), Expires: 08/11/2024 [facility] Comment on above: Expected: 08/11/2023 (Approximate), Expires: 08/11/2024 Start: 08-11-2023 End: 08-11-2024 Hemoglobin A1c measurement Hemoglobin A1c Lab Routine Morbid obesity due to excess calories (CMS/HCC) Expected: 08/11/2023 (Approximate), Expires: 08/11/2024 [facility] Work Phone: Comment on above: Expected: 08/11/2023 (Approximate), Expires: 08/11/2024 Start: 08-11-2023 End: 08-11-2024 Hepatic function 2000 panel - Serum or Plasma Hepatic function panel Lab Routine Encounter for long-term (current) use of medications Expected: 08/11/2023 (Approximate), Expires: 08/11/2024 [facility] Comment on above: Expected: 08/11/2023 (Approximate), Expires: 08/11/2024 Start: 08-11-2023 End: 08-11-2024 Lipid 1996 panel - Serum or Plasma Lipid panel Lab Routine Dyslipidemia (CMS/HCC) Expected: 08/11/2023 (Approximate), Expires: 08/11/2024 [facility] Comment on above: Expected: 08/11/2023 (Approximate), Expires: 08/11/2024 Start: 08-11-2023 End: 08-11-2024 Thyrotropin [Units/volume] in Serum or Plasma TSH Lab Routine Morbid obesity due to excess calories (CMS/HCC) Expected: 08/11/2023 (Approximate), Expires: 08/11/2024 [facility] Comment on above: Expected: 08/11/2023 (Approximate), Expires: 08/11/2024 Start: 08-11-2023 End: 08-11-2023 Patient encounter procedure 08/11/2023 9:45 AM EST Office Visit [facility] [address] [place] [phone] Latrell Jack MD [address] [place] [phone] Arrived [facility] Comment on above: Arrived Start: 07-10-2023 Advance Directive Discussion Advance Directive Discussion [facility] Start: 03-10-2023 Influenza vaccination Influenza Vacc ine (#1) [facility] Start: 09-21-2016 Screening for osteoporosis Bone Density Screening [facility] Start: 09-21-2001 Shingrix Vaccine (1 of 2) Shingrix Vaccine (1 of 2) [facility] Start: 09-21-1996 Diabetes Screening Diabetes Screenin g [facility] Start: 09-21-1996 Lipid panel Lipid Screening [facility] Start: 09-21-1996 Screening for malign ant neoplasm of colon [facility] Start: 1991 Screening for malign ant neoplasm of breast [facility] Start: 09-21-1981 Zoledronic acid therapy Alpha- 1 Antitrypsin Deficiency Screening [facility] Start: 09-21-1970 Urine microalbumin profile DTaP,Tdap,Td Vaccine (1 - Tdap) [facility] Start: 09-21-1969 Annual PCP Team Manager Economic julio Disease Visit Annual PCP Team Chronic Disease Visit [facility] Start: 09-21-1969 Anxiety Screening Anxiety Screening [facility] Start: 09-21-1969 BP Controlled (<130/80) BP Controlle d (<130/80) [facility] Start: 09-21-1969 Depression Screening Depression Scre ening [facility] Start: 09-21-1969 Hepatitis C screening Hepatitis C Sc swathi [facility] Start: 09-21-1969 Spirometry Spirometry [facility] Start: 1950 Medicare Annual Well ness (AWV) Medicare Annual Wellness (AWV) [facility] Start: 1950 Screening for malign ant neoplasm of colon [facility] Start: 1950 Screening for malign ant neoplasm of lung Lung Cancer Screening Shared Decision Making [facility] End: 05-04-2025 ECG COMPLETE ECG COMPLETE ECG Routine Preoperative examination Paraesophageal hernia 1 Occurrences starting 05/06/2024 until 05/04/2025 [facility] Comment on above: 1 Occurrences starti ng 05/06/2024 until 05/04/2025 Laps rpr paraesphgl hrna incl fundplsty w/mesh LAPAROSCOPIC RPR PARAESOPHAGEAL HERNIA W/O FUNDOPLASTY W/ MESH Preoperative examination Paraesophageal hernia [facility] Patient Education Depression in adults - Discharge instructions [facility] Instructions Know your Meds [facility] Work Phone: Patient referral [facility] Work Phone: REFER FOR ADMIT INTERVIEW REFER FOR ADMIT INTERVIEW Procedures Routine Preoperative examination Paraesophageal hernia Ordered: 05/06/2024 [facility] Work Phone: Comment on above: Ordered: 05/06/2024 End: 08-23-2025 XR Chest PA and Lateral XR CHEST 2V FRONTAL/LAT Radiology Routine Pre-op evaluation Chronic obstructive pulmonary disease, unspecified COPD type (HCC) CHENEY (dyspnea on exertion) 1 Occurrences starting 07/23/2024 until 08/23/2025 [facility] Work Phone: Comment on above: 1 Occurrences starti ng 07/23/2024 until 08/23/2025 XR Chest PA and Lateral XR CHEST 2V FRONTAL/LAT Radiology Routine Pre-op evaluation Chronic obstructive pulmonary disease, unspecified COPD type (HCC) CHENEY (dyspnea on exertion) 07/23/2024 1:58 PM EST [facility] Immunizations Immunization Date Immunization Notes Care Provider Fa cilicolby 05-15-2024 influenza virus vacc ine, unspecified formulation Latrell Jack MD Work Phone: [facility] 04-09-2023 influenza virus vacc ine, unspecified formulation Pa [facility] 05-03-2022 SARS-CoV-2 (COVID-19 ) [id number] [facility] 05-03-2022 influenza virus vacc ine, unspecified formulation Latrell Jack MD Work Phone: [facility] 11-25-2021 pneumococcal conjuga te vaccine, 13 valent Diomedes Fitzgerald DO Work Phone: [facility] 04-12-2021 influenza virus vacc ine, unspecified formulation Leos Sarmini [facility] 04-12-2021 SARS-CoV-2 (COVID-19 ) mRNA BNT-162b2 vax Pa [facility] Comment on above: Result Comment: 2023: [id number] 09-14-2020 SARS-CoV-2 (COVID-19 ) mRNA BNT-162b2 vax Pa [facility] Comment on above: Result Comment: 2023: [id number] 08-27-2020 SARS-CoV-2 (COVID-19 ) mRNA BNT-162b2 vax Pa [facility] Comment on above: Result Comment: 2023: [id number] 06-16-2020 influenza virus vacc ine, unspecified formulation Leos Sarmini [facility] 05-16-2019 influenza virus vacc ine, unspecified formulation Leos Sarmini [facility] 05-16-2019 pneumococcal polysaccharide vaccine, 23 valent Leos Sarmini [facility] 05-12-2018 influenza virus vacc ine, unspecified formulation Leos Ameyamini [facility] 01-31-2018 pneumococcal conjuga te vaccine, 13 valent Leos Sarmini [facility] 05-10-2016 influenza virus vacc ine, unspecified formulation Leos Sarmini [facility] 04-16-2015 influenza virus vacc ine, unspecified formulation Leos Ameyamini [facility] Payers Date Payer Category Payer Self-pay 2016 Private Health Insurance [id number] 2016 Medicare [id number] 2016 Unknown 1959 Medicare [id number] 1959 Private Health Insurance [id number] 1951 Unknown [id number] 2.16.84 0.1.225259.3.579.2.593 1951 Unknown [id number] 2.16.84 0.1.524885.3.579.2.593 1951 Unknown [id number] 2.16.84 0.1.767584.3.579.2.593 1951 Unknown [id number] 2.16.84 0.1.972011.3.579.2.593 1951 Unknown [id number] 2.16.84 0.1.618557.3.579.2.593 1951 Unknown [id number] 2.16.84 0.1.885329.3.579.2.593 1951 Unknown [id number] 2.16.84 0.1.926947.3.579.2.593 1951 Unknown [id number] 2.16.8 40.1.391633.3.579.2.727 1951 Unknown [id number] 2.16.8 40.1.316406.3.579.2.727 1951 Unknown [id number] 2.16.8 40.1.264713.3.579.2.727 1951 Unknown [id number] 2.16.8 40.1.507267.3.579.2.727 1951 Unknown [id number] 2.16.8 40.1.735276.3.579.2.727 1951 Unknown [id number] 2.16.8 40.1.353809.3.579.2.727 1951 Unknown [id number] 2.16.8 40.1.655552.3.579.2.727 1951 Unknown [id number] 2.16.8 40.1.552166.3.579.2.727 1951 Unknown [id number] 2.16. 840.1.539522.3.579.2.196 1951 Unknown [id number] 2.16. 840.1.183278.3.579.2.196 1951 Unknown [id number] 2.16. 840.1.794886.3.579.2.196 1951 Unknown [id number] 2.16. 840.1.909147.3.579.2.196 1951 Unknown [id number] 2.16. 840.1.852653.3.579.2.196 1951 Unknown [id number] 2.16. 840.1.439853.3.579.2.196 1951 Unknown [id number] 2.16.8 40.1.831488.3.579.2.1259 1951 Unknown [id number] 2.16.84 0.1.063859.3.579.2.1259 1951 Unknown [id number] 2.16.84 0.1.872850.3.579.2.9 1951 Unknown [id number] 2.16.84 0.1.864373.3.579.2.1259 1951 Unknown [id number] 2.16.84 0.1.661375.3.579.2.1259 1951 Unknown [id number] 2.16.84 0.1.376473.3.579.2.9 1951 Unknown [id number] 2.16.84 0.1.404881.3.579.2.9 1951 Unknown [id number] 2.16.84 0.1.810102.3.579.2.9 1951 Unknown [id number] 2.16.84 0.1.995027.3.579.2.1259 1951 Unknown [id number] 2.16.84 0.1.746351.3.579.2.1259 Unknown [id number] 2.16.8 40.1.900325.3.579.2.531 Social History Date Type Detail Facility Start: 08-05-2023 End: 05-30-2024 Tobacco smoking status SCIS Ex-smoker [facility] Start: 07-10-1967 End: 01-08-2012 History of tobacco use Current smoker [facility] Start: 07-10-1967 End: 01-08-2012 History of tobacco use Cigarette Smoker [facility] Start: 08-05-2023 End: 02-02-2024 Cigarettes smoked current (pack per day) - Reported 1 [facility] Start: 08-05-2023 End: 02-02-2024 Tobacco use panel [facility] Start: 1950 Sex Assigned At Not on file N [facility] Start: 08-11-2023 End: 05-30-2024 Tobacco use and exposure Smokeless tobacco non-user [facility] Tobacco smoking status Never [facility] [place] Start: 03-07-2024 End: 02-24-2025 Alcoholic beverage intake [...] per day [facility] Tobacco smoking stat [facility] Tobacco smoking consumption unknown [facility] Start: 04-23-2024 Gender identity Identifies as female gender (finding) [facility] Start: 07-23-2024 End: 08-07-2024 Alcoholic beverage intake Ex-drinker (finding) [facility] Start: 07-23-2024 Tobacco Comment Age 16 - 60, 1 /2 - 2 PPD, quit while at 1 PPD [facility] How often do you nee d to have someone help you when you read instructions, pamphlets, or other written material from your doctor or pharmacy [SILS] Sometimes [facility] Sexual Orientation [facility] Start: 09-04-2018 End: 12-16-2024 Sex Female (finding) [facility] Start: 1950 Sex Assigned At Female F [facility] Medical Equipment Procedure Code Equipment Code Equipment Original Text Equipment Identifier Dates Iola Thk1.65mm P tfe 4x.5in Cardiovascular Sterile - [id number] Start: 07-24-2024 Goals Date Patient Goal Desired Activity /State Functional Status Date Assessment Result Facility 12-16-2024 Functional status Patient at Baseline [facility] Work Phone: 03-20-2024 Functional Status N/A [facility] 02-26-2024 Functional Status N/A [facility] 10-13-2023 Functional Status N/A [facility] Mental Status Date Assessment Result Facility 12-16-2024 Cognitive function Cognitive Sta tus Patient at Baseline [facility] Work Phone: Clinical Notes 09-10-2021 to 02-24-2025 Latrell Jack MD - 02/24/2025 4:01 PM EDKimberli Jack MD - 02/24/2025 4:01 PM EDKimberli Jack MD - 02/24/2025 4:01 PM EDKimberli Jack MD - 02/24/2025 4:00 PM EDT [...] Bilateral screening mammogram documented in this encounter [facility] 12-16-2024 Discharge summary [facility] 12-15-2024 Progress note Note Date/Time December 15, 2024 10:52am [facility] [address] [place] [address] Psychiatry Progress Note Signed Patient: Shey Obrien MR#: [id number] : 1950 Acct:[id number] Age/Sex: 74 / F Adm Date: 5 Loc: Room: [address] [place] [address] Type : ADM IN Attending Dr: Erik [...] signed by DO MALICK Tee> 12/15/24 0943 [facility] Work Phone: 1(626) 989-782706-08-2025 [place] [address] Psychiatry Progress Note Signed Patient: Shey Obrien MR#: [id number] : 1950 Acct:[id number] Age/Sex: 74 / F Adm Date: 5 Loc: Room: [address] [place] [address] Type : ADM IN Attending Dr: Erik [...] 0941 Signed By: 12/15/24 1052 12/15/24 0943 [facility]06-07-2025 Progress note Author Erik aguilar [facility] Note Date/Time December 14, 2024 2:23p m [facility] [address] [place] [address] Psychiatry Progress Note Signed Patient: Shey Obrien MR#: [id number] : 1950 Acct:[id number] Age/Sex: 74 / F Adm Date: 5 Loc: 1S Room: [address] [place] [address] Type : ADM IN Attending Dr: Erik [...] <Electronically signed by Erik Kim MD> 12/14/24 3475 [facility] Work Phone: 1(296) 360-200806-07-2025 [place] [address] Psychiatry Progress Note Signed Patient: Shey Obrien MR#: [id number] : 1950 Acct:[id number] Age/Sex: 74 / F Adm Date: 5 Loc: Room: [address] [place] [address] Type : ADM IN Attending Dr: Erik [...] MD 5 1301 Signed By: 12/14/24 1423 [facility]06-06-2025 History and physical note Author Erik aguilar [facility] Note Date/Time December 13, 2024 10:06 am [facility] [address] [place] [address] Psychiatry H&P Signed Patient: Shey Obrien MR#: [id number] : 1950 Acct:[id number] Age/Sex: 74 / F Adm Date: 5 Loc: Room: 5G4764-2 Type: ADM IN Attending Dr: Erik Kim [...] boyfriend Employment: retired 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 Relationships: close, supportive relationship with family in [...] strong, equal bilaterally. 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 [facility] Relationships: close, supportive relationship with family in [...] strong, equal bilaterally. CNXII: Tongue protrusion midline [facility] Medical History (Updated 12/13/24 @ 10:06 by [...] MD 5 0841 Signed By: 12/13/24 1006 [facility]06-05-2025 Chief complaint+Reason for visit Narrative* Chief Complaint Admit Date Mental Evaluation. December 12, 2024 6:22p m Mental Evaluation. December 13, 2024 8:41a m Reason for Visit Admit Date Major depressive disorder, recurrent, mo derate December 12, 2024 6:22pm [facility] Work Phone: 1(949) 641-858906-05-2025 Chief complaint+Reason for visit Narrative * Chief Complaint Admit Date Mental Evaluation. December 12, 2024 6:22p m Mental Evaluation. December 13, 2024 8:41a m Reason for Visit Admit Date Major depressive disorder, recurrent, mo derate December 12, 2024 6:22pm Primary insomnia February 03, 2025 3:29 pm Obstructive sleep apnea syndrome February 032024 3:29pm [facility] Work Phone: 1(898) 308-992806-05-2025 Evaluation note* Diagnosis Onset Date Resolution Status Admit Date Major depressive disorder, recurrent, moderate acute December 12 6:22pm [facility] Work Phone: 1(295) 933-753706-05-2025 Evaluation note* Diagnosis Onset Date Resolution Status Admit Date Major depressive disorder, recurrent, moderate acute December 12 6:22pm Primary insomnia acute January 3:29pm Obstructive sleep apnea syndrome noneactive February 03, 2025 3:29pm [facility] Work Phone: 1([phone] 164-102706-05-2025 Evaluation + Plan noteExtracted from: Title:ED Note Author:Elmer Kohli DO Date: Suicidal ideation (R45.851: Suicidal ideations) Orders: CBC w/ Auto Diff Communication Order Comprehensive Metabolic Panel Consult to Mental Health Drug Screen Urine ECG 12 Lead Adult eGFR Ethanol Level UA with Cult Rflx Urine Culture Diagnostic Tests Pending * Urine Culture 12/12/24 [facility] 05-28-2025 History of Present illness Narrative* Latrell Jack MD - 12/04/2024 2:25 PM EDTAssociated Problem(s): Degenerative lumbar spinal stenosis Recent flare and increased pain. Treat with prednisone. Use robaxin for spasms and norco PRN. Follow up with pain management next week as scheduled. * Latrell Jack MD - 12/04/2024 2:24 PM EDTAssociated Problem(s): COPD (chronic obstructive pulmonary disease) ([facility]) SOB stable and continue albuterol nebulized PRN. [...] tablet predniSONE (Deltasone) 50 MG tablet HYDROcodone-acetaminophen (Moclips) 5-325 MG tablet documented in this encounterFulton Medical Center- [id number] History of Present illness Narrative* Latrell Jack MD - 08/27/2024 11:05 AM ESTAssociated Problem(s): 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CMS/HCC) Follow with neurology. * Latrell Jack MD [...] 11:03 AM ESTAssociated Problem(s): Essential hypertension, benign ([facility]) BP controlled and monitor PRN. * Latrell Jack MD - 08/27/2024 11:03 AM ESTAssociated Problem(s): COPD (chronic obstructive pulmonary disease) ([facility]) Symptoms stable and continue spiriva. Use albuterol PRN. * Latrell Jack MD - 08/27/2024 11:03 AM ESTAssociated Problem(s): Class 2 severe obesity due to excess calories with serious comorbidity and body mass index (BMI) of 36.0 to 36.9 in adult ([facility]) Weight loss indicated. * Latrell Jack MD [...] Items Addressed This Visit Essential hypertension, benign ([facility]) BP controlled and monitor PRN. Relevant Orders Basic metabolic panel COPD (chronic obstructive pulmonary disease) ([facility]) Symptoms stable and continue spiriva. Use albuterol PRN. Dyslipidemia ([facility]) Relevant Orders Lipid panel Encounter for long-term (current) use of medications Relevant Orders CBC and differential Hepatic function panel Prediabetes Relevant Orders Hemoglobin A1c Class 2 severe obesity due to excess calories with serious comorbidity and body mass index (BMI) of36.0 to 36.9 in adult (CMS/HCC) Weight loss indicated. Relevant Orders TSH Medicare annual wellness visit, subsequent - Primary Due for labs. Discussed proper diet and regular aerobic exercise. Need aerobic exercise 5-6 days a week for 30 minutes at a time. Smaller portions and limit total calories. Colonoscopy every 10 years. Tetanus every 10 years. Advised not to smoke. Discussed daily Aspirin therapy. documented in this encounterFulton Medical Center- [id number] NoteHNO ID: [id number] Author: KATARZYNA SNYDER APRN.DIRECTOR HOME HEALTH Service: ? Author Type: Nurse Practitioner Type: Progress Notes Filed: 08/07/2024 15:37 Note Text: [facility] Clinic Date: August 07, [...] Laparoscopic paraesophageal hernia repair Randomized Controlled Trial: MV Trial: Mesh Vs Pledgets for repair [...] completed prior to appointment Katarzyna Snyder, MSN, DIRECTOR HOME HEALTH August 07[facility]01[facility] History of Present illness Narrative* MilesKatarzyna APRN.DIRECTOR HOME HEALTH - 08/07/2024 2:[address] [facility] Clinic Date: [...] completed prior to appointment Katarzyna Snyder, MSN, DIRECTOR HOME HEALTH August 07, 2024 * Olga Lidia Blake [...] Temperature: No Drains: No [facility]25 NoteHNO ID: [id number] Author: OLGA LIDIA BLAKE MA Service: ? Author Type: Quill Collector Type: Progress Notes Filed: 08/07/2024 15:37 Note Text: What is the reason for your visit today? Post op Who is your referring physician? Dr. Snyder Are you having poor oral intake? NO Have you had unintentional weight loss of 15 lbs/7 Kg in the last 3-6 months? NO Bowels: constipated, diarrhea, or regular Wound: clean AND dry Temperature: No Drains: [facility] Telephone encounter Note* Telephone Encounter - Latrell Jack MD - 07/31/2024 2:25 PM EST [facility] to [facility]. [id number] Miscellaneous Notes* Telephone Encounter - Latrell Jack MD - 07/31/2024 2:25 PM EST Sent to [facility]. * Telephone Encounter - GEO DICK - 07/31/2024 2:20 PM EST Insurance won't cover the extended release ambien. * Telephone Encounter - Sandra Matias - 07/31/2024 1:13 PM EST Patient called and stated that her zolpidem refill was denied. She would like you to call her or the pharmacy. an documented in this encounterFulton Medical Center- [id number] Telephone encounter Note* Telephone Encounter - GEO DCIK - 07/31/2024 2:20 PM EST Insurance won't cover the extended release ambien. [id number] Telephone encounter Note* Telephone Encounter - Sandra Matias - 07/31/2024 1:13 PM EST Patient called and stated that her zolpidem refill was denied. She would like you to call her or the pharmacy. an [facility]- [id number] NoteHNO ID: [id number] Author: DERREK MARSHALL RN Service: Care Management [...] Obrien DATE: July 26, 2024 TIME: 9:22 [facility]01-16-2025 NoteHNO ID: [id number] Author: DERREK MARSHALL RN Service: Care Management Author Type: Registered Nurse Type: Care Mgt Initial Assessment Filed: 07/25/2024 14:30 Note Text: CARE MANAGEMENT: ASSESSMENT AND DISCHARGE PLAN SERVICE DATE: July 25, 2024 SERVICE TIME: 2:29 PM PCP: Latrell Jack MD Primary Contact: Extended Emergency Contact Information Primary Emergency Contact: Alexandria Cramer Address: [address] [place] [id number] [facility] Relation: Relative Admission Status: Inpatient Insurance Provider: MEDICARE A AND B Discharge Planning requested by: Per Department Practice Potential Transition Plans To Be Determined Advance Directives Current Advance Directive: None Personal Property Appraiser Attempted to Assist with AD Completion: Yes Action: Education Provided Kersey of Choice Explained: Kersey of Choice Given: No Reason Not Given: [...] Obrien DATE: July 25, 2024 TIME: 2:29 [facility]01-16-2025 NoteHNO ID: [id number] Author: DERREK MARSHALL RN Service: Care Management Author Type: Registered Nurse Type: Care Mgt Progress Note Filed: 07/25/2024 14:28 Note Text: CARE MANAGEMENT: ASSESSMENT AND DISCHARGE PLAN SERVICE DATE: July 25, 2024 SERVICE TIME: 2:28 PM PCP: Latrell Jack MD Primary Contact: Extended Emergency Contact Information Primary Emergency Contact: Alexandria Cramer Address: [address] [place] [address] Relation: Relative Admission Status: Inpatient Insurance Provider: MEDICARE A AND B Discharge Planning requested by: Per Department Practice Potential Transition Plans To Be Determined Advance Directives Current Advance Directive: None Personal Property Appraiser Attempted to Assist with AD Completion: Yes Action: Education Provided Kersey of Choice Explained: Kersey of Choice Given: No Reason Not Given: [...] Obrien DATE: July 25, 2024 TIME: 2:27 [facility]01-16-2025 NoteHNO ID: [id number] Author: YAN MOSER ? Service: General Surgery [...] and Airways Line Duration Peripheral 07/24/24 0900 [facility] Right Hand 20 Gauge <1 day Peripheral 07/24/24 1111 Left Hand 18 Gauge <1 day SURGERY/PROCEDURE: Procedure(s) and Anesthesia Type: * LAPAROSCOPIC RPR PARAESOPHAGEAL HERNIA W/O FUNDOPLASTY W/ MESH - General [facility]01-15-2025 NoteHNO ID: [id number] Author: NENA SEPULVEDA MD Service: General Surgery [...] MD SERVICE DATE: 07/24/24 SERVICE TIME: 7:09 [facility]01-15-2025 NoteHNO ID: [id number] Author: TRIP GRAY RN Service: Nursing Author Type: Registered Nurse Type: Progress Notes Filed: 07/24/2024 18:55 Note Text: [phone] Paged [phone] to notify that patient came up from PACU with a rdz in but no active rdz order. Requesting order to be placed.[facility] 07-24-2024 NoteHNO ID: [id number] Author: TRIP GRAY RN Service: Nursing Author Type: Registered Nurse Type: Progress Notes Filed: 07/24/2024 18:25 Note Text: Admission/Transfer Note PATIENT NAME: Shey Obrien Patient Location: [place] [address] Room: [place] [address] Patient admitted from PACU via bed in stable condition. Actions taken: Patient oriented to room, call light function, prescribed activities, Patient rights, and Quiet at night. Patient belongings with patient. This note was completed by: Trip [facility]Select [facility] 07-24-2024 NoteHNO ID: [id number] Author: BETTY ALLEN APRN.ELIZABETH Service: ? Author Type: Nurse Thread Checker Type: Anesthesia Procedure Notes Filed: 07/24/2024 11:23 Note Text: ANESTHESIOLOGY PROCEDURE NOTE Airway General Information Procedure Start Time/Medication Administration: 07/24/2024 11:09 AM Procedure End Time: 07/24/2024 11:09 AM Patient location during procedure: OR Timeout Performed Pre-procedure: timeout performed Consent Obtained: Yes Patient identity confirmed: arm band, care production team manager and patient Staffing VARNISH THINNER: Betty Allen APRN.VARNISH THINNER Performed by: ELIZABETH Indications and Patient Condition Indications for airway management: anesthesia Preoxygenated: yes anesthesia circuit Patient position: reverse Trendelenburg, sniffing and ramp Method: rapid sequence Final Airway Details Final airway type: endotracheal airway Final Endotracheal Airway: ETT Cuffed: yes Successful intubation technique: video laryngoscopy Devices used: [employer] Endotracheal tube insertion site: oral Blade size: #3 ETT size (mm): 7.0 Measured from: lips Measurement (cm): 21 Placement verified by: capnometry Cormack-Lehane Classification: grade I - full view of glottis Number of attempts at approach: 1 Airway not difficult SIGNATURE: Betty Allen APRN.CRNA PATIENT NAME: Shey Obrien DATE: July 24, 2024 TIME: 11:23 AM CSN: [id number]25 NoteHNO ID: [id number] Author: BETTY ALLEN APRN.ELIZABETH Service: ? Author Type: Nurse Thread Checker Type: Anesthesia Procedure Notes Filed: 07/24/2024 11:23 Note Text: ANESTHESIOLOGY PROCEDURE NOTE PIV General Information Procedure Start Time/Medication Administration: 07/24/2024 11:11 AM Procedure End Time: 07/24/2024 11:11 AM Patient Location: OR Staffing VARNISH THINNER: Betty Allen APRN.VARNISH THINNER Performed by: ELIZABETH Preparation Sterility Preparation: hand [...] July 24, 2024 TIME: 11:22 AM CSN: [id number] [facility]-2025 NoteHNO ID: [id number] Author: ABDELRAHMAN HE MD Service: General Surgery Author Type: Resident Type: Plan of Care Filed: 07/24/2024 10:30 Note Text: Patient consented for study? Yes STUDY TITLE: MVP Trial: Mesh Vs Pledgets for repair of paraesophageal hernia repair: a randomized, blinded, parallel group trial IRB NO.: #[id number] OUTSIDE PLANT CABLE ENGINEER: Willard Ramirez MD COORDINATOR/Research Nurse/Mechanical Field Engineer: Abdelrahman He MD Phone/email: [phone], [email or web address] Consenting was performed in person prior [...] CRITERIA Yes No 1. The patient lacks Malagasy language fluency or cannot understand the consent form/study procedures [] [x] 2. The patient is [] [x] 3. The patient has a BMI >45 [] [x] 4. The patient has undergone previous hiatal hernia repair [] [x] 5. The patient will undergo paraesophageal hernia repair with a concurrent bariatric procedure to reduce stomach volume [] [x][facility] History of Present illness Narrative* Humera Posey RT(R) - 07/23/2024 2:10 PM EST Radiology [...] PATIENT PRESENTS WITH AN IMPLANTABLE OR ATTACHED RIDE ATTENDANT: No RADIOLOGY DEPARTMENT: General X-ray: Exam(s) Completed: Chest X-Ray PERIPHERAL IV DATA: Not applicable SIGNED BY: RIANNA Hatfield) July 23, 2024 1:59 PM documented in this encounterBucyrus [facility] Hospital01-14-2025 NoteHNO ID: [id number] Author: HUMERA POSEY RT (R) Service: Radiology [...] PATIENT PRESENTS WITH AN IMPLANTABLE OR ATTACHED RIDE ATTENDANT: No RADIOLOGY DEPARTMENT: General X-ray: Exam(s) Completed: Chest X-Ray PERIPHERAL IV DATA: Not applicable SIGNED BY: RIANNA Hatfield) July 23, 2024 1:59 [place] [address]-14-2025 Instructions* Patient Instructions* Jamil Delacruz PA-C - 07/23/2024 1:27 PM EST Images from the original note were not included. [facility] PATIENT PREOPERATIVE INSTRUCTIONS Dr. Boyd has scheduled you for your procedure at this surgery center: [facility] Scheduling Office: [phone] --[address] [place] [address]. Please read below carefully for your personalized [...] office. If you are currently using a bjau-yjt-teat injectable or oral medication for diabetes or [...] Procedures: - YOU MUST HAVE A RESPONSIBLE HUMAN RESOURCES TEMP TAKE YOU HOME. A REPAIRER WELDING SYSTEMS AND EQUIPMENT OR CIRCULAR TANK COOPER CANNOT BE MADE A RESPONSIBLE HUMAN RESOURCES TEMP. - We recommend that a responsible person [...] call the Monday before. Your surgeon s sectionizer will tell you what time to call the office. - If you have not reached the departmental sectionizer by 5 P.M., call [phone] after 5 P.M. the day before your surgery. Please be aware that emergency situations arise, which may delay or change your surgical time. If this happens, we will notify you as soon as possible and regret any inconvenience. If you already have an Advance Directive, please fax a copy to [phone] or email to for it to be [...] day. Jamil Delacruz PA-C documented in this encounterBucyrus [facility] Hospital01-14-2025 History and physical note * Jamil [...] Imm Admin: COVID-19 vaccine, age 12+ yr (M[employer]-BIONTECH COMIRNATY) 05/03/2022 Imm Admin: COVID-19 vaccine, age 12+ yr, bivalent (M[employer]oot-BIONTECH) 04/12/2021 Imm Admin: COVID-19 original vaccine, age 12+ yr, monovalent ([employer]- [employer]ION[employer] - PURPLE TOP) Only the first [...] pain, CHF, congenital heart defect, DVT/PE, recent ID and murmur/valvular heart disease. GI: See HPI. [...] 404 QTC Calculation (Bazett) 423 Calculated P [place] 32 Calculated R [place] 14 Calculated T [place] 54 Impression NORMAL SINUS RHYTHM NORMAL ECG No results found for this or any previous visit (from the past 20118 hour(s)). Instructions Given to Patient: Instructions located in the after visit summary. Patient given verbal and written preop instructions and voices comprehension and compliance. SIGNATURE: Jamil Delacruz PA-C PATIENT NAME: Shey Obrien DATE: July 23, 2024 TIME: 1:07 PM PAGER/CONTACT #: [facility]01-14-[facility] History and physical note* Jamil Delacruz [...] pain, CHF, congenital heart defect, DVT/PE, recent ID and murmur/valvular heart disease. GI: See HPI. [...] 404 QTC Calculation (Bazett) 423 Calculated P [place] 32 Calculated R [place] 14 Calculated T [place] 54 Impression NORMAL SINUS RHYTHM NORMAL ECG No results found for this or any previous visit (from the past 57245 hour(s)). Instructions Given to Patient: Instructions located in the after visit summary. Patient given verbal and written preop instructions and voices comprehension and compliance. SIGNATURE: Jamil Delacruz PA-C PATIENT NAME: Shey Obrien DATE: July 23, 2024 TIME: 1:07 PM PAGER/CONTACT #: documented in this encounterBucyrus Community Hospital12-23-2024 Telephone encounter Note * Telephone Encounter - Trip Lieberman MA - 07/01/2024 1:22 PM EST Sending this to Dr [facility] [id number] Miscellaneous Notes* Telephone Encounter - Trip Lieberman MA - 07/01/2024 1:22 PM EST Sending this to Dr Jack * Telephone Encounter - Sandra Arcos NP - 06/29/2024 11:46 AM EST Did we call Dr. Jack's office and let him know that we took over the Aricept. If not can we please. I do not see it documented. Thank you documented in this encounterFulton Medical Center- [id number] Telephone encounter Note* Telephone Encounter - Sandra Arcos NP - 06/29/2024 11:46 AM EST Did we call Dr. Jack's office and let him know that we took over the Aricept. If not can we please. I do not see it documented. Thank you [facility] [id number] Telephone encounter Note* Telephone Encounter - Cassy Donnelly - 06/13/2024 11:39 AM EST Patient would like her Losartan 50 mg and Pantoprazole 40 mg changed to [facility] pharmacy insteadof [facility] [id number] Miscellaneous Notes* Telephone Encounter - Cassy Donnelly - 06/13/2024 11:39 AM EST Patient would like her Losartan 50 mg and Pantoprazole 40 mg changed to [facility] pharmacy insteadof [facility] documented in this encounterFulton Medical Center- FultonJmzwmclfnr72-98-2059 History of Present illness Narrative* Latrell Jack [...] 10:34 AM ESTAssociated Problem(s): Essential hypertension, benign ([facility]) BP improved but still elevated and increase losartan. Continue to monitor PRN. * Latrell Jack MD - 05/15/2024 10:33 AM ESTAssociated Problem(s): COPD (chronic obstructive pulmonary disease) ([facility]) Symptoms stable and continue spiriva. Use albuterol PRN. * Latrell Jack MD - 05/15/2024 10:33 AM ESTAssociated Problem(s): Class 2 severe obesity due to excess calories with serious comorbidity and body mass index (BMI) of 38.0 to 38.9 in adult ([facility]) Weight loss indicated. * Latrell Jack MD [...] OTC PRN. COPD (chronic obstructive pulmonary disease) ([facility]) Symptoms stable and continue spiriva. [...] index (BMI) of38.0 to 38.9 in adult ([facility]) Weight loss indicated. documented in this encounterNOMS [id number] NoteHNO ID: [id number] Author: XAVIER BOYD MD Service: ? Author [...] blinded, parallel group trial IRB NO.: #[id number] OUTSIDE PLANT CABLE ENGINEER: Pa Prakash MD COORDINATOR/Research Nurse/Mechanical Field Engineer: Abdelrahman He MD Phone/email: [phone], [email or web address] Consenting was performed in person prior [...] CRITERIA Yes No 1. The patient lacks Malagasy language fluency or cannot understand the consent form/study procedures [] [x] 2. The patient is [] [x] 3. The patient has a BMI >45 [] [x] 4. The patient has undergone previous hiatal hernia repair [] [x] 5. The patient will undergo paraesophageal hernia repair with a concurrent bariatric procedure to reduce stomach volume [] [x][facility] 04-[facility] History of Present illness Narrative* Xavier [...] blinded, parallel group trial IRB NO.: #[id number] OUTSIDE PLANT CABLE ENGINEER: Pa Prakash MD COORDINATOR/Research Nurse/Mechanical Field Engineer: Abdelrahman He MD Phone/email: [phone], [email or web address] Consenting was performed in person [...] CRITERIA Yes No 1. The patient lacks Malagasy language fluency or cannot understand the consent [...] Yan Moser - 04/29/2024 11:16 AM EDT [facility] Abdominal [facility] Health - HISTORY AND [...] Moser MD General Surgery documented in this encounterBucyrus Community Hospital10-21-2024 NoteHNO ID: [id number] Author: YAN MOSER, ? Service: ? Author Type: Physician Type: Progress Notes Filed: 04/29/2024 12:10 Note Text: [facility] for [facility] - [...] - Consents obtained Yan Moser MD General SurgerySelect [facility]-21-2024 Nurse Note* Diomedes Fiore MA - 04/29/2024 10:50 AM EDT What is the reason for your visit today? Consult Who is your referring physician? Katie Hairston Are you having poor oral intake? YES Have you had unintentional weight loss of 15 lbs/7 Kg in the last 3-6 months? NO Bowels: soft, more frequent Wound: none Temperature: No Drains: No [facility]10-21-2024 Nurse Note* Diomedes Fiore MA - 04/29/2024 10:50 AM EDT What is the reason for your visit today? Consult Who is your referring physician? Katie Hairston Are you having poor oral intake? YES Have you had unintentional weight loss of 15 lbs/7 Kg in the last 3-6 months? NO Bowels: soft, more frequent Wound: none Temperature: No Drains: No documented in this encounterBucyrus Community Hospital10-14-2024 Telephone encounter Note * Telephone Encounter - Ashlie Calderon - 04/22/2024 5:32 PM EDT Spoke with PT she state no prior surgeries [facility]10-14-2024 Miscellaneous Notes* Telephone Encounter - Ashlie Calderon - 04/22/2024 5:32 PM EDT Spoke with PT she state no prior surgeries documented in this encounterBucyrus Community Hospital10-03-2024 History of Present illness Narrative* Mao [...] No history of alcohol/substance abuse. Reformed smoker. Wiyot language Malagasy. Completed high school education as well as some college. Described self asa C student. 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 Motor/Speed of Processing: Left-handed. 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 Recognition discriminability 69th %ile. Forced-choice . Immediate recall for prose passages 90th %ile, [...] of this individual. Please contact me with [employer] at [phone]. documented in this [facility]09-18-2024 NoteEndoscopic Procedure Report - Other Patient: SHEY [...] 1 tab, Oral, Daily Flonase 0.05 mg/inh Austin: 2 spray(s), Nasal, Daily, Refill(s) 0, Dry [...] a day (at bedtime) Flonase 0.05 mg/inh Austin 2 spray(s), Nasal, Daily losartan 25 mg [...] All Problems HTN (hypertension) / SNOMED CT 8941195799 / Confirmed Chronic obstructive pulmonary disease / SNOMED CT 89308835 / Confirmed Insomnia / SNOMED CT 408921528 / Confirmed Seasonal allergic rhinitis / SNOMED CT 600225038 / Confirmed Dyslipidemia / SNOMED CT 9820228748 / Confirmed BMI 39.0-39.9,adult / SNOMED CT 364050463 / Confirmed Morbid obesity / SNOMED CT 001182331 / Confirmed GERD (gastroesophageal reflux disease) / SNOMED CT 563631754 / Confirmed Hiatal hernia / SNOMED CT 789296835 / Confirmed EDWIN (obstructive sleep apnea) / SNOMED CT 265618584 / Confirmed Lower extremity edema / SNOMED CT 408585034 / Confirmed TIA (transient ischemic attack) / SNOMED CT 385646542 / Confirmed Screening for malignant neoplasm of colon / SNOMED CT 845726850 / Confirmed Dysphagia / SNOMED CT 92114579 / Confirmed Histories Past Medical History: Resolved Hernia (206680919): Resolved. Sleep apnea (127008563): Resolved. Family History: Father Alcoholism Primary malignant neoplasm of lung COPD Mother Cardiac arrest Alzheimer's disease Procedure history: Colonoscopy (363217248) on 10/13/2023 at 73 Years. ORIF - Open reduction of fracture of ankle with internal fixation (389240550612052). Meniscal repair (858394313). Tonsillectomy (429811907). Hand tendon repaired (632705715). Social History Social & Psychosocial Habits Alcohol [...] Impression and Plan Impression: DYSPHAGIA Plan: -EGDFisher Sinai Hospital Of BaltimoreComment on above:Result Comment: wrong folder Electronically Signed By: Yovanny OLIVO, Katie Torres\.br\Date and Time Signed: 03/20/24 12:47 [id number] History of Present illness Narrative* Mao Morrow, [...] No history of alcohol/substance abuse. Reformed smoker. Wiyot language Malagasy. Completed high school education as well as some college. Describes itself as a C student. 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 Please contact me with [employer] at [phone]. documented in this encounterFulton Medical Center- FultonElgomsjnmm92-77-9657 Hospital Discharge instructions Patient Education 03/20/2024 13:07:59 [...] Follow these instructions at home: Medicines Take imlc-jvk-vaglels and prescription medicines only as told by [...] or drinks. ?Garlic or onions. ?Spicy foods. ?Graves fruits. ?Tomato-based foods. ?Fatty or fried foods. [...] provider. Document Revised: 01/09/2023 Document Reviewed: 01/09/2023 [employer] Patient Education 2023 [employer]. 03/20/2024 13:07:56 Gastritis, Adult, Xjpy-du-Pmvm Gastritis, Adult Gastritis is irritation and swelling [...] Follow these instructions at home: Medicines Take thww-zcn-viqysaf and prescription medicines only as told by [...] right away. Call your local emergency services ([address] Do not wait to see [...] provider. Document Revised: 10/30/2021 Document Reviewed: 10/30/2021 [employer] Patient Education 2023 [employer]. 03/20/2024 13:07:48 Hiatal Hernia Hiatal Hernia A [...] reduce GERD symptoms. Medicines. These may include: ?Hjto-prq-ziroqpw antacids. ?Medicines that make your stomach empty [...] may include: ?Fatty foods, like fried foods. ?Graves fruits, like oranges or lemon. ?Other foods [...] Do not drink alcohol. General instructions Take lkeh-fvf-zieygry and prescription medicines only as told by [...] provider. Document Revised: 08/23/2022 Document Reviewed: 08/23/2022 [employer] Patient Education 2023 [employer] 03/20/2024 13:07:46 Endoscopy, Care After Procedure [facility]) Endoscopy Care After Procedure Please read the instructions outlined below and refer to this sheet in the next few weeks. These discharge instructions provide you with general information on caring for yourself after you [facility]. Your doctor may also give you specific [...] Document Re-Released: 12/18/2006 ExitCare Patient Information 2009 [employer]. Follow Up Care 02/26/2024 09:52:05 With:Yovanny OLIVO, SENAIT Siufentes, [facility] Address: When: Unknown Comments:Call for any problems. Office will call to schedule follow up appointment [facility] 09-11-2024 Evaluation + Plan note Future Scheduled Tests Radiology* XR Esophagus 03/20/24 [facility] 09-11-2024 NotePatient Education - Text Endoscopy Care After Procedure Please read the instructions outlined below and refer to this sheet in the next few weeks. These discharge instructions provide you with general information on caring for yourself after you leave [facility]. Your doctor may also give you specific [...] Document Re-Released: 12/18/2006 ExitCare? Patient Information ?2009 [employer]. Gastroenterology Hiatal Hernia A hiatal hernia occurs [...] symptoms. ? Medicines. These may include: ? Eqes-unh-nttrtzl antacids. ? Medicines that make your stomach [...] ? Avoid putting pressu (more content not included)...[facility] 03-20-20[facility] NoteEndoscopic Procedure Report - Other [...] otherwise normal examined duodenum Images Procedure images: Rec1_hd_video_2023__T1__49_155.jpg Rec1_hd_video_2023__T1__35_581.jpg Rec1_hd_video_2023____25_745.jpg Rec1_hd_video_2023__T1__15_326.jpg Rec1_hd_video_2023__T12_00_14_566.jpg Rec1_hd_video_2023__2_00_01_833.jpg . Post-Procedure Complications: none. Estimated blood loss: [...] if surgery referral is indicated, will be orderedWayne HospitalComment on above:Result Comment: Electronically Signed By: Yovanny OLIVO, Katie Torres\.br\Date and Time Signed: 03/20/24 12:58 EDTOther Comment: Missing Attachment - attachment storage system not supported [id number] Can be viewed in source systemMissing Attachment - attachment storage system not supported 9641573 Can be viewed insource systemMissing Attachment - attachment storage system not supported 4842245 Can be viewed in source systemMissing Attachment - attachment storage system not supported 2915231 Can be viewed in source systemMissing Attachment - attachment storage system not supported 2251831 Can be viewed in source systemMissing Attachment - attachment storage system not supported 1292116 Can be viewed in source [id number] NoteEndoscopic Procedure Report - Other Patient: SHEY [...] 1 tab, Oral, Daily Flonase 0.05 mg/inh Austin: 2 spray(s), Nasal, Daily, Refill(s) 0, Dry [...] a day (at bedtime) Flonase 0.05 mg/inh [place] 2 spray(s), Nasal, Daily losartan 25 mg [...] All Problems HTN (hypertension) / SNOMED CT 5575868424 / Confirmed Chronic obstructive pulmonary disease / SNOMED CT 50918761 / Confirmed Insomnia / SNOMED CT 206749519 / Confirmed Seasonal allergic rhinitis / SNOMED CT 599643057 / Confirmed Dyslipidemia / SNOMED CT 0265685650 / Confirmed BMI 39.0-39.9,adult / SNOMED CT 201573329 / Confirmed Morbid obesity / SNOMED CT 990061067 / Confirmed GERD (gastroesophageal reflux disease) / SNOMED CT 167650680 / Confirmed Hiatal hernia / SNOMED CT 969264578 / Confirmed EDWIN (obstructive sleep apnea) / SNOMED CT 116090241 / Confirmed Lower extremity edema / SNOMED CT 596572438 / Confirmed TIA (transient ischemic attack) / SNOMED CT 263175436 / Confirmed Screening for malignant neoplasm of colon / SNOMED CT 646226243 / Confirmed Dysphagia / SNOMED CT 49866603 / Confirmed Histories Past Medical History: Resolved Hernia (846106733): Resolved. Sleep apnea (703265040): Resolved. Family History: Father Alcoholism Primary malignant neoplasm of lung COPD Mother Cardiac arrest Alzheimer's disease Procedure history: Colonoscopy (836638427) on 10/13/2023 at 73 Years. ORIF - Open reduction of fracture of ankle with internal fixation (239527183825514). Meniscal repair (655438358). Tonsillectomy (873927372). Hand tendon repaired (866568187). Social History Social & Psychosocial Habits Alcohol [...] NTND Impression and Plan Impression: DYSPHAGIA Plan: -EGDFmatthew Sinai Hospital Of BaltimoreComment on above:Result Comment: Electronically Signed By: Yovanny OLIVO, Katie Torres\.maikol\Date and Time Signed: 03/20/24 12:47 [id number] History of Present illness Narrative* Diomedes Amaralner, DO - 03/07/2024 11:30 AM EDT Images [...] was counseled on the risks of stroke, ID, and sudden with EDWIN, along with the [...] instructions Return to clinic: documented in this encounterFulton Medical Center- FultonOtkhkklufq61-04-2164 Note [id number] State [facility]ing [facility] Evaluation + Plan noteExtracted from: Title:ANES Post-operative Note - General Author: Shaji Bethea Jr., DO Date:10/13/23 Plan Transfer/Discharge: Transfer/Discharge Discharge when meets criteria ( From PACU to Ambulatory Surgery Unit, and To home ). Extracted from: Title:ANES Pre-operative Note - Endo Author:Shaji Mendoza Jr., DO Date:10/13/23 Plan [place] Society of Anesthesiologists (ASA) physical status classification: Class III. Anesthetic Preoperative Plan: Anesthesia General, and -TIVA. [facility]04-05-2024 Hospital Discharge instructions Patient Education 10/13/2023 [...] Up Care 09/12/2023 10:17:58 With:Pa WEBB Address: [address] [place], [place] [address], [address] [place] [id number] Business (1) When: only if needed [facility]04-05-2024 NotePatient: SHEY OBRIEN Age: 73 years Sex: Female : 1950 Associated Diagnoses: None Author: Pa WEBB MD Subjective no changes to H & PFMount St. Mary HospitalComment on above:Result Comment: Electronically Signed By: Pa WEBB MD\.br\Date and Time Signed: 10/13/23 09:45 [id number] NoteChief Complaint consultation for colonoscopy HPI Staff [...] a day (at bedtime) Flonase 0.05 mg/inh Austin, 2 spray(s), Nasal, Daily losartan 25 mg [...] Alcoholism: Father. Alzheimer's di (more content not included)...[facility] HospitalComment on above:Result Comment: Electronically Signed By: TRACEY OLIVO, Pa Vivas\christiane\Date and Time Signed: 09/12/23 10:16 SCI10-45-7043 History of Present illness Narrative* Latrell Jack [...] referral to General Surgery documented in this encounterFulton Medical Center- FultonQhlojdizdi21-82-7688 NoteEXAMINATION: XR CHEST 1 V HISTORY: SHORTNESS [...] Electronically authenticated by: MEHNAZ SANTIAGO Date: 2021-11-02 16:39[facility]03-04-2022 NotePROCEDURE: XR ANKLE RT MIN [...] Electronically authenticated by: WILLARD ANAND Date: 2021-09-10 09:02[facility]03-04-[facility] NotePROCEDURE: XR ANKLE RT 2V COMPARISON: 03/02/2020. HISTORY: Pain FINDINGS: 35 seconds of fluoroscopy. 5 fluoroscopic images Interval removal of internal fixation hardware. Components of 2 fractured screws across the tibiofibular syndesmosis remain on image #5 IMPRESSION: Removal of lateral fibular plate and screws Electronically authenticated by: WILLARD ANAND Date: 2021-09-10 08:30[facility] HospitalDis[facility] summary Author Tra Hobson [facility] Note Date/Time December 16, 2024 3:46p m [facility] [address] [place] [address] Discharge Summary Signed Patient: Shey Obrien MR#: [id number] : 1950 Acct:[id number] Age/Sex: 74 / F Adm Date: 5 Loc: 1S Room: [address] [place] [address]: Erik Kim MD Copies to: [...] boyfriend Employment: retired 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 Relationships: close, supportive relationship with family in area. Patient was treated with Remeron. She tolerated [...] Instructions: Important Contact Information You can call [facility] Inpatient Behavioral Health at [phone] any time day or night if you have emergent questions or question regarding discharge instructions. If at any time you are feeling an increase inyour psychiatric symptoms, call your physician or behavioral healthcare provider. If any time you have thoughts of harming yourself or others contact one of the following: Call (available 30/01) Crisis Text Line (available 30/01) text 4HOPE to [phone] [facility] Hope Line (available 8 a.m. Midnight) call [phone] ([phone]) Instructions: Depression in adults - Discharge instructions, [facility] [place] Instructions, Know your Meds [...] Up: [facility] - [place] [Outside] - 12/17/24 (architect manager will call you tomorrow, if you [...] signed by Tra Hobson MD> 12/16/24 1546 [facility] Work Phone: Evaluation + Plan note Future Appointments Appointment Date:03/20/2024 12:15:00 PM Scheduled Provider: Location:[facility] Appointment Type:Surgery FT [facility] Evaluation note* Diagnosis [...] 40.0-44.9, adult (Z68.41) documented in this encounter [facility] HealthcareEvaluation note* Diagnosis Memory loss- Primary Word finding difficulty EDWIN on CPAP Other insomnia Other chronic pain Generalized anxiety disorder (CMS/HCC) Generalized anxiety disorder Severe episode of recurrent major depressive disorder, 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) documented in this encounter [facility] HealthcareEvaluation note* Diagnosis Paraesophageal hernia- Primary Diaphragmatic hernia without mention of obstruction or gangrene [facility] Preoperative examination- Primary Preoperative examination, unspecified Paraesophageal hernia Diaphragmatic hernia without mention of obstruction or gangrene Abnormal results of liver function studies Nonspecific abnormal results of liver function study Abnormal coagulation profile [facility] Diagnosis Essential hypertension, benign (CMS/HCC)- Primary [...] (BMI) of 38.0 to 38.9 in adult ([facility]) documented [facility]* [...] colon Morbid obesity due to excess calories ([facility]) Dyslipidemia ([facility]) Other and unspecified hyperlipidemia Encounter for long-term (current) use of medications Encounter for long-term (current) use of other medications Body mass index [BMI] 40.0-44.9, adult (Z68.41) Essential hypertension, benign ([facility]/HCC)- Primary Essential hypertension, benign Dysphagia, unspecified type 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) Senile dementia, uncomplicated Chronic obstructive pulmonary disease, unspecified COPD type (CMS/HCC) Hiatal hernia with gastroesophageal reflux disease without esophagitis Primary osteoarthritis of both knees Primary insomnia Persistent disorder of initiating or maintaining sleep EDWIN (obstructive sleep apnea) Obstructive sleep apnea (adult) (pediatric) Essential hypertension, benign ([facility]/HCC)- Primary Essential hypertension, benign Chronic obstructive pulmonary [...] (BMI) of 38.0 to 38.9 in adult ([facility]/HCC) Essential hypertension, benign ([facility]) Essential hypertension, benign Hiatal hernia with gastroesophageal reflux disease without esophagitis documented [facility]* Diagnosis Memory loss- Primary Word finding difficulty EDWIN on CPAP Other insomnia Other chronic pain Generalized anxiety disorder ([facility]/HCC) Generalized anxiety disorder documented [facility]* Diagnosis Memory loss- Primary 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) Senile dementia, uncomplicated Mild cognitive impairment Mild [...] psychotic features (HCC) (CMS/HCC) Generalized anxiety disorder ([facility]/HCC) Generalized anxiety disorder EDWIN on CPAP Other chronic pain Other insomnia [facility]* Diagnosis Pre-op evaluation- Primary [...] smoker -CXR pending documented in this encounter [facility] note* Diagnosis Pre-op evaluation- Primary Preoperative [...] and respiratory abnormality documented in this encounter [facility] note* Diagnosis Essential hypertension, benign (CMS/HCC)- [...] or maintaining sleep documented in this encounter [facility]Evaluation note* Diagnosis Essential hypertension, benign [...] or maintaining sleep [facility] Diagnosis Pre-op evaluation- Primary Preoperative examination, unspecified Preoperative examination Preoperative examination, unspecified Paraesophageal hernia Diaphragmatic hernia without mention of obstruction or gangrene Chronic obstructive pulmonary disease, unspecified COPD type ([facility]) CHENEY (dyspnea on exertion) Other dyspnea and [...] aftercare following surgery [facility] Diagnosis Essential hypertension, benign (CMS/HCC)- [...] (BMI) of 38.0 to 38.9 in adult ([facility]) Medicare annual wellness visit, subsequent- Primary Prediabetes Other abnormal glucose Dyslipidemia ([facility]) Other and unspecified hyperlipidemia Encounter for long-term (current) use of medications Encounter for long-term (current) use of other medications Essential hypertension, benign ([facility]) Essential hypertension, benign Class 2 severe obesity due to excess calories with serious comorbidity and body mass index (BMI) of 36.0 to 36.9 in adult ([facility]) Chronic obstructive pulmonary disease, unspecified COPD type ([facility]) 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) Senile dementia, uncomplicated documented in this encounter [facility]* Diagnosis Essential hypertension, benign ([facility]/HCC)- Primary Essential hypertension, benign Chronic obstructive pulmonary disease, unspecified COPD type ([facility]) Primary insomnia Persistent disorder of initiating or maintaining sleep Primary osteoarthritis of both knees Hiatal hernia with gastroesophageal reflux disease without esophagitis Seasonal allergic rhinitis due to pollen Screening for colon cancer Special screening for malignant neoplasms, colon Morbid obesity due to excess calories ([facility]) Dyslipidemia ([facility]) Other and unspecified hyperlipidemia Encounter for long-term (current) use of medications Encounter for long-term (current) use of other medications Body mass index [BMI] 40.0-44.9, adult (Z68.41) Essential hypertension, benign ([facility]/HCC)- Primary Essential hypertension, benign Dysphagia, unspecified type 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) Senile dementia, uncomplicated Chronic obstructive pulmonary disease, unspecified COPD type ([facility]) Hiatal hernia with gastroesophageal reflux disease without esophagitis Primary osteoarthritis of both knees Primary insomnia Persistent disorder of initiating or maintaining sleep EDWIN (obstructive sleep apnea) Obstructive sleep apnea (adult) (pediatric) Essential hypertension, benign ([facility]/HCC)- Primary Essential hypertension, benign Chronic obstructive pulmonary disease, unspecified COPD type ([facility]/HCC) Hiatal hernia with gastroesophageal reflux disease without esophagitis EDWIN (obstructive sleep apnea) Obstructive sleep apnea (adult) (pediatric) Primary osteoarthritis of both knees Primary insomnia Persistent disorder of initiating or maintaining sleep Class 2 severe obesity due to excess calories with serious comorbidity and body mass index (BMI) of 38.0 to 38.9 in adult ([facility]) Medicare annual wellness visit, subsequent- Primary Prediabetes Other abnormal glucose Dyslipidemia ([facility]) Other and unspecified hyperlipidemia Encounter for long-term (current) use of medications Encounter for long-term (current) use of other medications Essential hypertension, benign ([facility]/HCC) Essential hypertension, benign Class 2 severe obesity due to excess calories with serious comorbidity and body mass index (BMI) of 36.0 to 36.9 in adult ([facility]) Chronic obstructive pulmonary disease, unspecified COPD type ([facility]/HCC) 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) Senile dementia, uncomplicated Chronic obstructive pulmonary disease, unspecified COPD type ([facility]) Primary insomnia Persistent disorder of initiating or maintaining sleep documented [facility]* Diagnosis Essential hypertension, benign ([facility]/HCC)- Primary Essential hypertension, benign Chronic obstructive pulmonary disease, unspecified COPD type ([facility]/HCC) Primary insomnia Persistent disorder of initiating or maintaining sleep Primary osteoarthritis of both knees Hiatal hernia with gastroesophageal reflux disease without esophagitis Seasonal allergic rhinitis due to pollen Screening for colon cancer Special screening for malignant neoplasms, colon Morbid obesity due to excess calories ([facility]) Dyslipidemia ([facility]) Other and unspecified hyperlipidemia Encounter for long-term (current) use of medications Encounter for long-term (current) use of other medications Body mass index [BMI] 40.0-44.9, adult (Z68.41) Essential hypertension, benign ([facility]/HCC)- Primary Essential hypertension, benign Dysphagia, unspecified type 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) Senile dementia, uncomplicated Chronic obstructive pulmonary disease, unspecified COPD type ([facility]) Hiatal hernia with gastroesophageal reflux disease without esophagitis Primary osteoarthritis of both knees Primary insomnia Persistent disorder of initiating or maintaining sleep EDWIN (obstructive sleep apnea) Obstructive sleep apnea (adult) (pediatric) Essential hypertension, benign ([facility]/HCC)- Primary Essential hypertension, benign Chronic obstructive pulmonary disease, unspecified COPD type ([facility]/HCC) Hiatal hernia with gastroesophageal reflux disease without esophagitis EDWIN (obstructive sleep apnea) Obstructive sleep apnea (adult) (pediatric) Primary osteoarthritis of both knees Primary insomnia Persistent disorder of initiating or maintaining sleep Class 2 severe obesity due to excess calories with serious comorbidity and body mass index (BMI) of 38.0 to 38.9 in adult ([facility]) Medicare annual wellness visit, subsequent- Primary Prediabetes Other abnormal glucose Dyslipidemia ([facility]) Other and unspecified hyperlipidemia Encounter for long-term (current) use of medications Encounter for long-term (current) use of other medications Essential hypertension, benign ([facility]) Essential hypertension, benign Class 2 severe obesity due to excess calories with serious comorbidity and body mass index (BMI) of 36.0 to 36.9 in adult ([facility]) Chronic obstructive pulmonary disease, unspecified COPD type ([facility]) 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) Senile dementia, uncomplicated Primary insomnia Persistent disorder of initiating or maintaining sleep Chronic obstructive pulmonary disease, unspecified COPD type ([facility]/HCC) documented in this encounter [facility]Evaluation [facility]* Diagnosis Essential hypertension, benign ([facility])- Primary Essential hypertension, benign Chronic obstructive pulmonary disease, unspecified COPD type ([facility]/HCC) Primary insomnia Persistent disorder of initiating or maintaining sleep Primary osteoarthritis of both knees Hiatal hernia with gastroesophageal reflux disease without esophagitis Seasonal allergic rhinitis due to pollen Screening for colon cancer Special screening for malignant neoplasms, colon Morbid obesity due to excess calories ([facility]) Dyslipidemia ([facility]) Other and unspecified hyperlipidemia Encounter for long-term (current) use of medications Encounter for long-term (current) use of other medications Body mass index [BMI] 40.0-44.9, adult (Z68.41) Essential hypertension, benign ([facility])- Primary Essential hypertension, benign Dysphagia, unspecified type 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) Senile dementia, uncomplicated Chronic obstructive pulmonary disease, unspecified COPD type ([facility]) Hiatal hernia with gastroesophageal reflux disease without esophagitis Primary osteoarthritis of both knees Primary insomnia Persistent disorder of initiating or maintaining sleep EDWIN (obstructive sleep apnea) Obstructive sleep apnea (adult) (pediatric) Essential hypertension, benign ([facility])- Primary Essential hypertension, benign Chronic obstructive pulmonary disease, unspecified COPD type ([facility]) Hiatal hernia with gastroesophageal reflux disease without esophagitis EDWIN (obstructive sleep apnea) Obstructive sleep apnea (adult) (pediatric) Primary osteoarthritis of both knees Primary insomnia Persistent disorder of initiating or maintaining sleep Class 2 severe obesity due to excess calories with serious comorbidity and body mass index (BMI) of 38.0 to 38.9 in adult ([facility]) Medicare annual wellness visit, subsequent- Primary Prediabetes Other abnormal glucose Dyslipidemia ([facility]) Other and unspecified hyperlipidemia Encounter for long-term (current) use of medications Encounter for long-term (current) use of other medications Essential hypertension, benign ([facility]) Essential hypertension, benign Class 2 severe obesity due to excess calories with serious comorbidity and body mass index (BMI) of 36.0 to 36.9 in adult ([facility]) Chronic obstructive pulmonary disease, unspecified COPD type ([facility]) 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) Senile dementia, uncomplicated Degenerative lumbar spinal stenosis- Primary Spinal stenosis of lumbar region Chronic obstructive pulmonary disease, unspecified COPD type ([facility]) documented in this encounter [facility]Evaluation note* Diagnosis Essential hypertension, benign- Primary Essential hypertension, benign Chronic obstructive pulmonary disease, unspecified COPD type (HCC) Primary insomnia Persistent disorder of initiating or maintaining sleep Primary osteoarthritis of both knees Hiatal hernia with gastroesophageal reflux disease without esophagitis Seasonal allergic rhinitis due to pollen Screening for colon cancer Special screening for malignant neoplasms, colon Morbid obesity due to excess calories ([facility]) Dyslipidemia Other and unspecified hyperlipidemia Encounter for [...] (BMI) of 38.0 to 38.9 in adult ([facility]) Medicare annual wellness visit, subsequent- Primary Prediabetes Other abnormal glucose Dyslipidemia Other and unspecified hyperlipidemia Encounter for long-term (current) use of medications Encounter for long-term (current) use of other medications Essential hypertension, benign Essential hypertension, benign Class 2 severe obesity due to excess calories with serious comorbidity and body mass index (BMI) of 36.0 to 36.9 in adult (CMS-HCC) Chronic obstructive pulmonary disease, unspecified COPD type [...] hazards to health documented in this encounter [facility] course Narrative No data available for this section [facility] No data available for this section [facility] Progress note No data available for this section [facility] (narrative)* Consultation (Routine) - Pending Review Specialty Diagnoses / Procedures Referred By Joan junior Referred To Contact General Surgery Diagnoses Screening for colon cancer Procedures ID OFFICE/OUTPATIENT NEW HIGH MDM 60 MINUTES Latrell Jack MD [address] [place] [address] Pa Webb MD [address] [place] [address] Referral ID Status Reason Start Date Expiration Date Visits Requested Visits Authorized [id number] Pending Review Specialty Services Required 08/11/2023 02/07/2024 1 1 [facility] Healthcare Summary Purpose Family History No Family [...] FoundNo Family History Records Found Advance Directives Advance Directive Response Recorded Date/ Time Advance Directives No December 12 5:44pm Advance Directive Response Recorded Date/ Time Advance Directives No December 17 2:30pm Hospital Course Note [facility] SURGERY Clinical Discharge Summary PERSON INFORMATION Name SHEY OBRIEN Age 68 Years 52 Sex FEMALE Language Malagasy PCP LATRELL JACK Marital Status Single Med Service Ambulatory Surgery Acct# Arrival 02/04/19 11:44:00 Visit Reason SURGERY - RELEASE TRIGGER FINGER LEFT RING FINGER AND E/O CYST LEFT RING FINGER Acuity LOS 012 05:38 Address: [address] [place] [address] Comment: PROVIDER INFORMATION VITALS INFORMATION Vital Sign [...] COMPUTED TOMOGRAPHY THORAX W/O CNTRST Katarzyna Snyder, HAND STONE POLISHER.DIRECTOR HOME HEALTH [address] [place] [id number] [facility] [place] [address] Referral ID Status Reason Start Date Expiration Date Visits Requested Visits Authorized [id number] New Request Auto-Generat ed Referral 08/07/2025 09/06/2025 1 1 Specialty Diagnoses / Procedures Referred By Joan junior Referred To Contact Radiology Diagnoses Memory loss Procedures MR brain wo contrast Diomedes Fitzgerald DO [address] [place] [address] Referral ID Status Reason Start Date Expiration Date V isits Requested Visits Authorized [id number] Pending Review 03/07/2024 09/03/2024 1 1 Specialty Diagnoses / Procedures Referred By Joan t Referred To Contact Diagnoses Preoperative examination Paraesophageal hernia Procedures REFER TO [facility] - PREOPERATIVE OPTIMIZATION OFFICE/OUTPATIENT NEW HIGH MDM 60 MINUTES Katarzyna Carter APRN.DIRECTOR HOME HEALTH [address] [place] [address] Referral ID Status Reason Start Date Expiration Date Visits Requested Visits Authorized [id number] Authorized PCP Requested Referral 4 05/04/2025 1 1 Specialty Diagnoses / Procedures Referred By Contac t Referred [facility] Diagnoses Preoperative examination Paraesophageal hernia Procedures ECG COMPLETE ECG ROUTINE ECG W/LEAST 12 LDS W/I&R Katarzyna Carter, HAND STONE POLISHER.DIRECTOR HOME HEALTH [address] [place] [address] [facility] [address] [place] [address] Referral ID Status Reason Start Date Expiration Date Visits Requested Visits Authorized [id number] New Request Auto-Generat ed Referral 4 05/04/2025 1 1 Additional Source Comments INFORMATION SOURCE (unrecogn ized section and content) DATE CREATED AUTHOR 02/17/2019 [facility] DATE CREATED AUTHOR AUTHOR'S ORGANIZ ATION 08/03/2022 [facility] DATE CREATED AUTHOR AUTHOR'S ORGANIZ ATION 03/28/2024 [facility] DATE CREATED AUTHOR AUTHOR'S ORGANIZ ATION 04/04/2024 [facility] DATE CREATED AUTHOR AUTHOR'S ORGANIZ ATION 08/12/2024 [facility] DATE CREATED AUTHOR AUTHOR'S ORGANIZ ATION 12/13/2024 [facility] DATE CREATED AUTHOR AUTHOR'S ORGANIZ ATION 12/17/2024 [facility] DATE CREATED AUTHOR AUTHOR'S ORGANIZ ATION 02/08/2025 [facility] DATE CREATED AUTHOR AUTHOR'S ORGANIZ ATION 02/19/2025 [facility] DATE CREATED AUTHOR AUTHOR'S ORGANIZ ATION 02/25/2025 [facility] EPIC Care Teams (unrecognized sec tion and content) Systems Protection Technician Relationship Specialty Start Date End Date Latrell Jack MD [address] [place] [id number] PCP - General Family Medicine 08/05/23 Systems Protection Technician Relationship Specialty Start Date End Date Latrell Jack MD [address] [place] [id number] PCP - General Family Medicine 08/05/23 Systems Protection Technician Relationship Specialty Start Date End Date Latrell Jack MD [address] [place] [phone] PCP - General Family Medicine 08/05/23 Systems Protection Technician Relationship Specialty Start Date End Date Katie Hairston MD [address] [place] [address] Internal Medicine 04/02/24 Systems Protection Technician Relationship Specialty Start Date End Date Katie Hairston MD [address] [place], [place] [address] Internal Medicine 04/02/24 Systems Protection Technician Relationship Specialty Start Date End Date Katie Hairston MD [address] [place] [address] Internal Medicine 04/02/24 Systems Protection Technician Relationship Specialty Start Date End Date Latrell Jack MD [address] [place] [phone] PCP - General Family Medicine 08/05/23 Systems Protection Technician Relationship Specialty Start Date End Date Latrell Jack MD [address] [place] [address] PCP - General Family Medicine 08/05/23 Systems Protection Technician Relationship Specialty Start Date End Date Latrell Jack MD [address] [place] [address] PCP - General Family Medicine 08/05/23 Diomedes Fitzgerald DO [address] [place] [address] Referring Physician Neurology 05/30/24 Systems Protection Technician Relationship Specialty Start Date End Date Latrell Jack MD [address] [place] [address] PCP - General Family Medicine 08/05/23 Systems Protection Technician Relationship Specialty Start Date End Date Latrell Jack MD [address] [place] [address] PCP - General Family Medicine 08/05/23 Systems Protection Technician Relationship Specialty Start Date End Date Latrell Jack MD [address] [place] [address] PCP - General Family Medicine 08/05/23 Systems Protection Technician Relationship Specialty Start Date End Date Latrell Jack MD [address] [place] [address] PCP - General Family Medicine 08/05/23 Systems Protection Technician Relationship Specialty Start Date End Date Latrell Jack MD [address] [place] [address] PCP - General Family Medicine 08/05/23 Systems Protection Technician Relationship Specialty Start Date End Date Latrell Jack MD [address] [place] [address] PCP - General Family Medicine 08/05/23 Diomedes Fitzgerald DO [address] [place] [address] Referring Physician Neurology 05/30/24 Systems Protection Technician Relationship Specialty Start Date End Date Latrell Jack MD [address] [place] [address] PCP - General Family Medicine 08/05/23 Diomedes Fitzgerald DO [address] [place] [id number] Referring Physician Neurology 05/30/24 Systems Protection Technician Relationship Specialty Start Date End Date Latrell Jack MD [address] [place] [address] PCP - General Family Medicine 08/05/23 Diomedes Fitzgerald DO [address] [place] [id number] Referring Physician Neurology 05/30/24 Systems Protection Technician Relationship Specialty Start Date End Date Latrell Jack MD [address] [place] [address] PCP - General Family Medicine 07/01/24 Katie Hairston MD [address] [place] [address] Internal Medicine 04/02/24 Systems Protection Technician Relationship Specialty Start Date End Date Latrell Jack MD [address] [place] [address] PCP - General Family Medicine 07/01/24 Katie Hairston MD [address] [place] [address] [address] Internal Medicine 04/02/24 Systems Protection Technician Relationship Specialty Start Date End Date Latrell Jack MD [address] [place] [address] PCP - General Family Medicine 08/05/23 Diomedes Fitzgerald DO [address] [place] [address] Referring Physician Neurology 05/30/24 Systems Protection Technician Relationship Specialty Start Date End Date Latrell Jack MD [address] [place] [address] PCP - General Family Medicine 08/05/23 Diomedes Fitzgerald DO [address] [place] [address] Referring Physician Neurology 05/30/24 Systems Protection Technician Relationship Specialty Start Date End Date Latrell Jack MD [address] [place] [address] PCP - General Family Medicine 07/01/24 Katie Hairston MD [address] [facility] [address] [place] [address] Internal Medicine 04/02/24 Systems Protection Technician Relationship Specialty Start Date End Date Latrell Jack MD [address] [place] [address] PCP - General Family Medicine 08/05/23 Latrell Jack MD [address] [place] [address] PCP - ACO Reach 08/16/24 Diomedes Fitzgerald DO [address] [place], [place] [id number] Referring Physician Neurology 05/30/24 Systems Protection Technician Relationship Specialty Start Date End Date Latrell Jack MD [address] [place] [address] PCP - General Family Medicine 08/05/23 Latrell Jack MD [address] [place] [address] PCP - ACO Reach 08/16/24 Diomedes Fitzgerald DO [address] [place] [address] Referring Physician Neurology 05/30/24 Systems Protection Technician Relationship Specialty Start Date End Date Latrell Jack MD [address] [place] [address] PCP - General Family Medicine 08/05/23 Latrell Jack MD [address] [place] [address] PCP - ACO Reach 08/16/24 Diomedes Fitzgerald DO [address] [place] [address] Referring Physician Neurology 05/30/24 Systems Protection Technician Relationship Specialty Start Date End Date Latrell Jack MD [address] [place] [phone] PCP - General Family Medicine 08/05/23 Latrell Jack MD [address] [place] [phone] PCP - ACO Reach 08/16/24 Diomedes Fitzgerald DO [address] [place] [address] Referring Physician Neurology 05/30/24 Systems Protection Technician Relationship Specialty Start Date End Date Latrell Jack MD [address] [place] [address] PCP - General Family Medicine 08/05/23 Latrell Jack MD [address] [place] [address] PCP - ACO Reach 08/16/24 Diomedes Fitzgerald DO [address] [place] [address] Referring Physician Neurology 05/30/24 Systems Protection Technician Relationship Specialty Start Date End Date Latrell Jack MD [address] [place] [phone] PCP - General Family Medicine 08/05/23 Latrell Jack MD [address] [place] [phone] PCP - ACO Reach 08/16/24 Diomedes Fitzgerald DO [address] [place] [address] Referring Physician Neurology 05/30/24 Systems Protection Technician Relationship Specialty Start Date End Date Latrell Jack MD [address] [place] [phone] PCP - General Family Medicine 08/05/23 Latrell Jack MD [address] [place] [phone] PCP - ACO Reach 08/16/24 Diomedes Fitzgerald DO [address] [place], [place] [id number] Referring Physician Neurology 05/30/24 Team Status: Active [...] December 13, 2024 Erik Kim MD Admit Provider Active [...] February 03, 2025 End: February 03, 2025 Systems Protection Technician Relationship Specialty Start Date End Date Latrell Jack MD [address] [place] [address] PCP - General Family Medicine 08/05/23 Latrell Jack MD [address] [place] [address] PCP - ACO Reach 08/16/24 Diomedes Fitzgerald DO [address] [place] [address] Referring Physician Neurology 05/30/24 Sugar Arenas, DISPLAY FABRICATOR [address] [facility] [place] [address] Inventory Control Manager Family Medicine 01/16/25 Systems Protection Technician Relationship Specialty Start Date End Date Latrell Jack MD [address] [place] [address] PCP - General Family Medicine 08/05/23 Latrell Jack MD [address] [place] [phone] PCP - ACO Reach 08/16/24 Diomedes Fitzgerald DO [address] [place] [address] Referring Physician Neurology 05/30/24 Sugar Arenas, [facility] [address] [place] [address] Inventory Control Manager Family Medicine 01/16/25 Systems Protection Technician Relationship Specialty Start Date End Date Latrell Jack MD [address] [place] [address] PCP - General Family Medicine 08/05/23 Latrell Jack MD [address] [place] [phone] PCP - ACO Reach 08/16/24 Diomedes Fitzgerald DO [address] [place] [address] Referring Physician Neurology 05/30/24 Sugar Arenas, DISPLAY FABRICATOR [address] [place] [address] Inventory Control Manager Family Medicine 01/16/25 Reason for Visit (unrecogniz [...] Diagnoses 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CMS/HCC) Other dysphagia Procedures ID OFFICE/OUTPATIENT NEW HIGH MDM 60 MINUTES Latrell Jack MD [address] [place] [address] Diomedes Fitzgerald DO [address] [place] [address] Referral ID Status Reason Start Date Expiration Date V isits Requested Visits Authorized [id number] Closed Specialty Services Required 02/09/2024 08/07/2024 1 1 Reason Comments Memory Loss Specialty Diagnoses / Procedures Referred By Contac t Referred To Contact Diagnoses Preoperative examination Paraesophageal hernia Procedures REFER TO [facility] - PREOPERATIVE OPTIMIZATION OFFICE/OUTPATIENT [facility] 60 MINUTES Katarzyna Snyder APRN.[facility] [address] [place] [address] Referral ID Status Reason Start Date Expiration Date V isits Requested Visits Authorized [id number] Closed PCP Requested Referral 05/06/2024 05/04/2025 1 [...] or prosecute any alcohol or drug abuse patient.[facility] the event this information is protected by the Federal Confidentiality of Alcohol and Drug Abuse Patient Records regulations: The Federal rules restrict any use of the information to criminally investigate or prosecute any alcohol or drug abuse patient.[facility] the event this information is protected by the Federal Confidentiality of Alcohol and Drug Abuse Patient Records regulations: The Federal rules restrict any use of the information to criminally investigate or prosecute any alcohol or drug abuse patient.[facility] the event this information is protected by the Federal Confidentiality of Alcohol and Drug Abuse Patient Records regulations: The Federal rules restrict any use of the information to criminally investigate or prosecute any alcohol or drug abuse patient.[facility] the event this information is protected by the Federal Confidentiality of Alcohol and Drug Abuse Patient Records regulations: The Federal rules restrict any use of the information to criminally investigate or prosecute any alcohol or drug abuse patient.[facility] the event this information is protected by the Federal Confidentiality of Alcohol and Drug Abuse Patient Records regulations: The Federal rules restrict any use of the information to criminally investigate or prosecute any alcohol or drug abuse patient.[facility] FOR RECORDS PERTAINING TO PATIENTS WHO [...] BE BASED ON THE PRIMARY CLINICAL RECORDS. [facility] [employer] [facility]. provides no warranty or guarantee of the accuracy or completeness of information in this document.
== END 2025-03-04 13:29 | disposition home or self-care (01) ==
LOC: CT 13:28
PROVIDERS: PCP Family Medicine; Visit Provider Family Medicine
DX: Z87.891 Personal history of nicotine dependence (principal)
CPT/HCPCS: 71271

== ENCOUNTER 2025-03-28 15:53 | Emergency (ER) | payer MEDICARE, OTHER, SELFPAY ==
[2025-03-28 15:58] VITALS: BP 190/100; PULSE 88; TEMP 36.6; O2SAT 97; BMI 42.1
--- OUTSIDE RECORDS SUMMARY | 2025-03-28 16:10 | XMS_ITS | CCD ---
Author Organization [facility] Care Team Providers Care Assistant Toddler Teacher Name Role Phone FREDY, DR CHAPARRO Attending [...] Referring Unavailable Yovanny OLIVO, Dafne Talal Unavailable [phone] Diomedes Fitzgerald DO Unavailable Guero OLIVO, Latrell A Primary Care Provider [phone] Yovanny OLIVO, Dafne T Unavailable [phone] GUERO, LATRELL A Primary Care Unavailable BEFFA, [...] Unavailable Latrell Jack MD Primary Care Provider [phone] Julio OLIVO, Erik Admit Provider Julio OLIVO, Erik Attending Provider Tra Hobson MD Attending Provider Julio OLIVO, Erik Attending Provider JulioErik keita MD Other Provider Diomedes Fitzgerald DO Attending Provider [phone] Giyaniqueitis , Andlinette Benedict Attending Unavailable Giedraitis , Andrius Benedict Attending Unavailable Giedraitis , Andrius Marichuy Attending Unavailable Giedraitis , Andrius Marichuy Attending Unavailable Giedraitis , Andrius Benedict Attending Unavailable Giedraitis , Andrius Marichuy Attending Unavailable Dagoberto FAMILY PRACTICE NURSE PRACTITIONER, Sugar Unavailable [phone] GUERO, LATRELL Attending Unavailable KRISTIE, SANDRA Attending Unavailable GUERO, LATRELL Attending Unavailable GUERO, LATRELL Attending Unavailable AMILCAR, DIOMEDES Attending Unavailable LATRELL JACK Referring Unavailable AMILCAR, DIOMEDES Referring Unavailable VIJIBEMAO CRUZ Attending Unavailable GUERO, LATRELL Attending Unavailable KRISTIE, SANDRA Attending Unavailable Dagoberto FAMILY PRACTICE NURSE PRACTITIONER, Sugar Unavailable Erik Kim Admitting Unavailab Tra Chew Attending Unavailable Latrell Jack Primary Care Unavailable Latrell Jack Primary Care Unavailable Erik Kim Attending Unavailab le Erik Kim Admitting Unavailab le Allergies Allergy Classification Reported Allergen(s) Allergy Type Date of Onset Reaction(s) Facility (1 source) Amino Acids Drug Allergy [facility] Repository Medications Current Medications Medication Drug Class(es) Dates Sig (Normalized) Sig (Original) acetaminophen 500 mg oral tablet (16 sources) Start: 07-26-2024 take 1 tablet by [...] daily as needed for pain HYDROcodone-acetami nophen (Powderly) 5-325 MG tablet Indications: Degenerative lumbar spinal [...] atorvastatin (Lipitor) 40 MG tablet Indications: Dyslipidemia TAKE 1 TABLET BY MOUTH AT BEDTIME 90 tablet 3 02/28/2025 Active Calcium (4 sources) Phosphate Binder, Calcium [...] Active docusate sodium 100 mg oral capsule (16 sources) Start: 07-26-2024 Docusate Sodiu m (DSS) 100 MG capsule Take 100 mg by mouth every 12 (twelve) hours if needed 07/26/2024 Active Start: 07-26-2024 take 1 capsule by mo [facility] every twelve hours as [...] number: 1 eszopiclone 2 mg oral tablet (4 sources) Start: 02-03-2025 take 1 tablet by [...] Active Start: 09-06-2023 Flonase 0.05 m g/inh [place] 2 spray(s), Nasal, Daily, Refill(s) 0, Dry [...] 0 Active methocarbamol 750 mg oral tablet (13 sources) Muscle Relaxant Start: 03-03-2025 take 1 tablet by mouth four times daily as needed for muscle spasms methocarbamol (Robaxin) 750 MG tablet Indications: Degenerative lumbar spinal stenosis TAKE 1 TABLET BY MOUTH 4 TIMES A DAY NEEDED FOR MUSCLE SPASMS 60 tablet 2 03/03/2025 Active Start: 02-03-2025 Methocarbamol 500 mg tablet Active [...] 1 capsule by inhalation once daily Tiotropium [place] (Spiriva With Handihaler) 18 mcg capsule, w/inhalation [...] RESPIMAT INHALATION) Inhale as instructed. Active Tiotropium [place] (Spiriva With Handihaler) 18 mcg capsule, w/inhalation device (1 source) Start: 12-12-2024 take 1 capsule by inhalation once daily Tiotropium [place] (Spiriva With Handihaler) 18 mcg capsule, w/inhalation [...] 1 tablet by jennifer th once daily Vitamin D3 1000 intl units [...] Status: Ordered take 1 capsule by mo uth once daily alpha tocopherol (Vitamin E) 400 units capsule Take 1 capsule by mouth 1 (one) time each day at the same time Active Vitamin E, dl, a cetate, (VITAMIN E) 400 unit capsule Take 1 capsule by mouth. Active zonisamide 50 mg oral capsule (15 sources) Anti-epileptic Agent Start: 12-12-2024 take 1 [...] (BMI) of 38.0 to 38.9 in adult (CMS/[facility])] Onset: 4 Resolved: 5 05-15-2024 Chronic Other [...] of mental health and substance abuse codes (18 sources) Personal history of nicotine dependence; Translations: [Ex-smoker] Onset: 2 Episodic Spondylosis; intervertebral disc disorders; other back problems (19 sources) Lumbago with sciatica, left side; Translations: [...] have any medical concerns. 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 Ordering Physician: Latrell Jack M.D. Date of Service: 03/04/25 Procedure(s): CT lung screening low-dose Accession Number(s): [id number] cc: Latrell Jack M.D. [place] [id number] Patient Name: SHEY OBRIEN MRN: [facility]:[id number] date: 1950 Sex: F Assigned Patient Location: CT Current Patient Location: CT Accession/Order Number: [id number] Exam Date: 03/04/2025 13:52 Report Date: 03/04/2025 14:31 At the request of: LATRELL JACK MD Procedure: CT lung screening low-dose CT CHEST WITHOUT CONTRAST, LOW DOSE SCREENING: CLINICAL DATA: A 74-year old former smoker, smoking for 88 pack-years. COMPARISON: CT 07/28/2022 TECHNIQUE: Noncontrast axial CT scan images of the chest were obtained under the low dose screening CT protocol. Coronal and sagittal reconstructed images were also submitted. FINDINGS: Mediastinum : Suboptimal evaluation due to low-dose technique. Thoracic aorta appears normal in caliber. Pulmonary trunk appears nondilated. No pericardial effusion. No lymphadenopathy. The esophagus is grossly unremarkable. Lungs: No focal consolidation, pneumothorax or pleural effusion. Trachea and distal airways appear patent. Diffuse fibrotic changes without honeycombing. No suspicious noncalcified pulmonary nodule or mass. Upper abdomen: No acute findings. Bony thorax and chest wall: Soft tissues surrounding the chest wall demonstrate no acute findings. Osseous structures demonstrate degenerative change. CT/CT lung screening low-dose IMPRESSION: NO SUSPICIOUS PULMONARY NODULE OR MASS. LUNG - RADS Version 1.0 Assessment: Category 1, Negative (No nodules and definitely benign nodules). Management: Continue annual lung screening with LDCT in 12 months. Impression dictated by: Emmie Calix Jr.OMichelle 03/04/2025 2:31 PM Dictation Location: [place] [address] Electronically authenticated by: [id number] Y Date: 03/04/2025 14:31 Dictated By: Claude Bahena M.D. Signed By: 03/04/25 1433 DD/ 1431 TD/TT: Seed Trucker: [facility] Radiology, Radiologist, - 03/04/2025 [place] [address] CT Scan Report Signed Patient: SHEY OBRIEN MR#: [id number] : 1950 Acct:[id number] Age/Sex: 74 / F ADM Date: 03/04/25 Loc: CT Attending Dr: Latrell Jack M.D. Ordering Physician: Latrell Jack M.D. Date of Service: 03/04/25 Procedure(s): CT lung screening low-dose Accession Number(s): [id number] cc: Latrell Jack M.D. [place] [address] Patient Name: SHEY OBRIEN MRN: [facility]:[id number] date: 1950 Sex: F Assigned Patient Location: CT Current Patient Location: CT Accession/Order Number: [id number] Exam Date: 03/04/2025 13:52 Report Date: 03/04/2025 14:31 At the request of: LATRELL JACK MD Procedure: CT lung screening low-dose CT CHEST WITHOUT CONTRAST, LOW DOSE SCREENING: CLINICAL DATA: A 74-year old former smoker, smoking for 88 pack-years. COMPARISON: CT 07/28/2022 TECHNIQUE: Noncontrast axial CT scan images of the chest were obtained under the low dose screening CT protocol. Coronal and sagittal reconstructed images were also submitted. FINDINGS: Mediastinum : Suboptimal evaluation due to low-dose technique. Thoracic aorta appears normal in caliber. Pulmonary trunk appears nondilated. No pericardial effusion. No lymphadenopathy. The esophagus is grossly unremarkable. Lungs: No focal consolidation, pneumothorax or pleural effusion. Trachea and distal airways appear patent. Diffuse fibrotic changes without honeycombing. No suspicious noncalcified pulmonary nodule or mass. Upper abdomen: No acute findings. Bony thorax and chest wall: Soft tissues surrounding the chest wall demonstrate no acute findings. Osseous structures demonstrate degenerative change. CT/CT lung screening low-dose IMPRESSION: NO SUSPICIOUS PULMONARY NODULE OR MASS. LUNG - RADS Version 1.0 Assessment: Category 1, Negative (No nodules and definitely benign nodules). Management: Continue annual lung screening with LDCT in 12 months. Impression dictated by: Claude Bahena Jr., D.O. 03/04/2025 2:31 PM Dictation Location: [place] [address] Electronically authenticated by: [id number] Y Date: 03/04/2025 14:31 Dictated By: Claude Bahena M.D. Signed By: 03/04/25 1433 DD/ 1431 TD/TT: Seed Trucker: [facility] [employer] Radiology Study observation (narrative) [facility] [employer] CT LUNG SCREENING LOW DOSEOr dered By: Radiologist Radiology on 03-04-2025 [facility] [employer] Work Phone: MM TOMOSYNTHESIS SCREENING B Ion 02-27-2025 [place] [address] Mammography Report Signed Patient: SHEY OBRIEN MR#: [id number] : 1950 Acct:[id number] Age/Sex: 74 / F ADM Date: 02/27/25 Loc: MAMMO Attending Dr: Latrell Jack M.D. Ordering Physician: Latrell Jack M.D. Results: Date of Service: 02/27/25 Follow Up: Procedure(s): MM tomosynthesis screening BI Accession Number(s): [id number] cc: Latrell Jack M.D. Patient Name: SHEY OBRIEN MR#: [id number] : 1950 Exam Date: 02/27/2025 Ordering Doctor: [...] lung cancer at age 46. LOCATION: [facility] BREAST COMPOSITION: The breasts are almost [...] [place] M.D. Signed By: 02/27/25 1407 DD/ 06 TD/TT: Seed Trucker: [facility] Radiology, Radiologist, MD - 02/27/2025 [place] [address] Mammography Report Signed Patient: SHEY OBRIEN MR#: [id number] : 1950 Acct:[id number] Age/Sex: 74 / F ADM Date: 02/27/25 Loc: MAMMO Attending Dr: Latrell Jack M.D. Ordering Physician: Latrell Jack M.D. Results: Date of Service: 02/27/25 Follow Up: Procedure(s): MM tomosynthesis screening BI Accession Number(s): [id number] cc: Latrell Jack M.D. Patient Name: SHEY OBRIEN MR#: [id number] : 1950 Exam Date: 02/27/2025 Ordering Doctor: [...] lung cancer at age 46. LOCATION: [facility] BREAST COMPOSITION: The breasts are almost [...] M.D. Signed By: 02/27/251406 DD/ 06 TD/TT: Seed Trucker: [facility] Radiology Study observation (narrative) [facility] MM TOMOSYNTHESIS SCREENING B IOrdered By: Radiologist Radiology on 02-27-2025 [facility] Work Phone: C Urineon 12-14-2024 Bacteria identified [...] Locations R1: This test was performed at: [facility], [address] [place] [address], [id number] , , [facility] Comment on above: Performed By: #### 2 [id number] #### [facility] [address] [place] [id number] Cholesterol [Mass/volume] in Serum or PlasmaOrdered By: Erik Kim on 12-13-2024 Cholesterol [Mass/Vol] Cholesterol [Mass/volume] in Serum or Plasma 140-200 [facility] Comment on above: Chol less than 200 m g/dl low riskChol 201-239 mg/dl borderline riskChol 240 mg/dl and greater high risk Cholesterol [Mass/Vol] 149 mg/dL Normal 140-200 [facility] Comment on above: Chol less than 200 m g/dl low riskChol 201-239 mg/dl borderline riskChol 240 mg/dl and greater high risk Result Comment: Chol less than 200 mg/dl low risk Chol 201-239 mg/dl borderline risk Chol 240 mg/dl and greater high risk Performed By: #### T SH3 wRFLX, LIPID, [id number] #### [address] Cholesterol in HDL [Mass/vol ume] in Serum or PlasmaOrdered By: Erik Kim on 12-13-2024 Cholesterol in HDL [Mass/Vol] Serum or plasma high density lipoprotein (HDL) cholesterol measurement [facility] Comment on above: HDL CHOL ATP-III CLA SSIFICATION Cardiovascular RiskHDL > or equal to 60 mg/dL LOWHDL < 40 mg/dL HIGH Cholesterol in HDL [Mass/Vol] 42 mg/dL Normal [facility] Comment on above: HDL CHOL ATP-III CLA SSIFICATION Cardiovascular RiskHDL > or equal to 60 mg/dL LOWHDL < 40 mg/dL HIGH Result Comment: HDL CHOL ATP-III CLASSIFICATION Cardiovascular Risk HDL > or equal to 60 mg/dL LOW HDL < 40 mg/dL HIGH Performed By: #### T SH3 wRFLX, LIPID, [id number] #### [address] Cholesterol in LDL Calc [Mas s/Vol]Ordered By: Erik Kim on 12-13-2024 Cholesterol in LDL [Mass/Vol] Cholesterol in LDL [Mass/volume] in Serum or Plasma by calculation 0-100 [facility] Comment on above: LDL ATP III CLASSIFI CATIONLDL less than 100 mg/dL OptimalLDL 100-129 mg/dL Near or above optimalLDL 130-159 mg/dL Borderline highLDL 160-189 mg/dL HighLDL greater than 189 mg/dL Very high Cholesterol in LDL [Mass/Vol] 39 mg/dL 0-100 [facility] Comment on above: LDL ATP III CLASSIFI CATIONLDL less than 100 mg/dL OptimalLDL 100-129 mg/dL Near or above optimalLDL 130-159 mg/dL Borderline highLDL 160-189 mg/dL HighLDL greater than 189 mg/dL Very high Cholesterol in VLDL Calc [Ma ss/Vol]Ordered By: Erik Kim on 12-13-2024 Cholesterol in VLDL [Mass/Vol] Cholesterol in VLDL [Mass/volume] in Serum or Plasma by calculation [facility] Cholesterol in VLDL [Mass/Vol] 67 mg/dL [facility] Lipid Panelon 12-13-2024 LDL Cholesterol,Calculate d 39 mg/dL Normal 0-100 [facility] Comment on above: Result Comment: LDL ATP III CLASSIFICATION LDL less than 100 mg/dL Optimal LDL 100-129 mg/dL Near or above optimal LDL 130-159 mg/dL Borderline high LDL 160-189 mg/dL High LDL greater than 189 mg/dL Very high Performed By: #### T SH3 wRFLX, LIPID, [id number] #### [facility] [address] Triglyceride w/Reflex 338 mg/dL High 0-149 [facility] Comment on above: Result Comment: TRIG ATP III CLASSIFICATION TRIG less than 150 mg/dL Normal TRIG 150-199 mg/dL Borderline high TRIG 200-500 mg/dL High TRIG greater than 500 mg/dL Very high Standard traceable to the Center for Disease Conrtrol and Prevention (CDC) test method. Performed By: #### T SH3 wRFLX, LIPID, [id number] #### [address] VLDL CHOLESTEROL 67 mg/dL Normal [facility] Comment on above: Performed By: #### T SH3 wRFLX, LIPID, [id number] #### [address] Serum or plasma total choles terol/high density lipoprotein (HDL) cholesterol mass ratOrdered By: Erik Kim on 12-13-2024 Cholesterol.total/Cho lesterol in HDL [Mass ratio] Serum or plasma total cholesterol/high density lipoprotein (HDL) cholesterol mass rat <5.0 [facility] Cholesterol.total/Cho lesterol in HDL [Mass ratio] 3.5 {ratio} Normal <5.0 [facility] Comment on above: Performed By: #### T SH3 wRFLX, LIPID, [id number] #### [address] Thyroid Stim Hormone w/Rflxo n 12-13-2024 Thyroid Stim Hormone w/Rflx 1.95 u[iU]/mL Normal 0.45-5.33 [facility] Comment on above: Performed By: #### T SH3 wRFLX, LIPID, [id number] #### [address] Thyrotropin [Units/volume] i n Serum or PlasmaOrdered By: Erik Kim on 12-13-2024 TSH Qn Thyrotropin [Units/volume] in Serum or Plasma 0.45-5.33 [facility] TSH Qn 1.95 m[IU]/L 0.45-5.33 [facility] Triglyceride [Mass/volume] i n Serum or PlasmaOrdered By: Erik Kim on 12-13-2024 Triglyceride [Mass/Vol] Triglyceride [Mass/volume] in Serum or Plasma High 0-149 [facility] Comment on above: TRIG ATP III CLASSIF ICATIONTRIG less than 150 mg/dL NormalTRIG 150-199 mg/dL Borderline highTRIG 200-500 mg/dL High TRIG greater than 500 mg/dL Very highStandard traceable to the Center for Disease Conrtrol and Prevention (CDC) test method. Triglyceride [Mass/Vol] 338 mg/dL High 0-149 [facility] Comment on above: TRIG ATP III CLASSIF ICATIONTRIG less than 150 mg/dL NormalTRIG 150-199 mg/dL Borderline highTRIG 200-500 mg/dL High TRIG greater than 500 mg/dL Very highStandard traceable to the Center for Disease Conrtrol and Prevention (CDC) test method. Vitamin D 25 Hydroxy Totalon 12-13-2024 Vitamin D 25 Hydroxy Total 26.8 ng/mL Low 30-100 [facility] Comment on above: Result Comment: FRANCESCO MIN D STATUS 25(OH)VITAMIN D RANGE (ng/mL) Deficient <20 Insufficient 20 to <30 Sufficient 30 to 100 Reference: Abdi MF,Shannon NC, Danyel HICKS, et al. Evaluation,treatment, and prevention of vitamin D deficiency; an Endocrine Society clinical practice guideline. JCEM. 2010; 96(7):1911-30. PERFORMED BY: [place] [address] PATHOLOGIST IRON PILER AVRIL LEDESMA M.D. Performed By: #### T SH3 wRFLX, LIPID, [id number] #### [address] Vitamin D+Metabolites [Mass/ volume] in Serum or PlasmaOrdered By: Erik Kim on 12-13-2024 Vitamin D+Metabolites [Mass/Vol] Vitamin D+Metabolites [Mass/volume] in Serum or Plasma Low 30-100 [facility] Comment on above: VITAMIN D STATUS 25( [place])VITAMIN D RANGE (ng/mL) Deficient <20 Insufficient 20 to <30Sufficient 30 to 100Reference: Shannon Remy, Danyel HICKS, et al. Evaluation,treatment, and prevention of vitamin D deficiency; an Endocrine Society clinical practice guideline. [facility]. 2010; 96(7):1911-30. Vitamin D+Metabolites [Mass/Vol] 26.8 ng/mL Low 30-100 [facility] Comment on above: VITAMIN D STATUS 25( [place])VITAMIN D RANGE (ng/mL) Deficient <20 Insufficient 20 to <30Sufficient 30 to 100Reference: Shannon Remy, Danyel HICKS, et al. Evaluation,treatment, and prevention of vitamin D deficiency; an Endocrine Society clinical practice guideline. [facility]. 2010; 96(7):1911-30. CBC w/ Auto Diffon 5 Basophil Absolute 0.0 E9/L Normal 0.0-0.2 [facility] Comment on above: Performed By: #### 2 [id number] #### [facility] [address] [place] [address] Basophils/100 WBC (Bld) 0.3 % Normal 0.0-2.0 [facility] Comment on above: Performed By: #### 2 [id number] #### [facility] [address] [place] [address] Eos Absolute 0.2 E9/L Normal 0.0-0.5 [facility] Comment on above: Performed By: #### 2 [id number] #### [facility] [address] [place] [address] Eosinophils/100 WBC (Bld) 2.8 % Normal 0.0-8.0 [facility] Comment on above: Performed By: #### 2 473145 #### [facility] [address] [place] [address] Erythrocyte distribution width (RBC) [Ratio] 14.7 % High 10.9-14.2 [facility] Comment on above: Performed By: #### 2 160304 #### [facility] [address] [place] [address] Hematocrit (Bld) [Volume fraction] 40.9 % Normal 34.0-46.0 [facility] Comment on above: Performed By: #### 2 [id number] #### [facility] [address] [place] [address] Hemoglobin (Bld) [Mass/Vol] 14.1 g/dL Normal 12.0-16.0 [facility] Comment on above: Performed By: #### 2 [id number] #### [facility] [address] [place] [address] Lymph Absolute 2.0 E9/L Normal 1.0-4.0 [facility] Comment on above: Performed By: #### 2 872376 #### [facility] [address] [place] [address] Lymphocytes/100 WBC (Bld) 24.1 % Normal 14.0-50.0 [facility] Comment on above: Performed By: #### 2 [id number] #### [facility] [address] [place] [address] MCH (RBC) [Entitic mass] 30.7 pg Normal 27.0-34.0 [facility] Comment on above: Performed By: #### 2 061522 #### [facility] [address] [place] [address] MCHC (RBC) [Mass/Vol] 34.5 g/dL Normal 31.4-36.0 [facility] Comment on above: Performed By: #### 2 680094 #### [facility] [address] [place] [address] MCV (RBC) [Entitic vol] 88.8 fL Normal 80.0-100.0 [facility] Comment on above: Performed By: #### 2 [id number] #### [facility] [address] [place] [address] Woods Absolute 0.5 E9/L Normal 0.2-1.0 [facility] Comment on above: Performed By: #### 2 771727 #### [facility] [address] [place] [address] Monocytes/100 WBC (Bld) 6.8 % Normal 4.0-14.0 [facility] Comment on above: Performed By: #### 2 304357 #### [facility] [address] [place] [address] Neutro Absolute 5.4 E9/L Normal 2.0-7.5 [facility] Comment on above: Performed By: #### 2 140288 #### [facility] [address] [place] [address] Neutro Auto 66.0 % Normal 36.0-75.0 [facility] Comment on above: Performed By: #### 2 248820 #### [facility] [address] [place] [address] Platelet 168.0 E9/L Normal 150.0-500.0 [facility] Comment on above: Performed By: #### 2 310814 #### [facility] [address] [place] [address] Platelet mean volume (Bld) [Entitic vol] 8.0 fL Normal 6.4-10.8 [facility] Comment on above: Performed By: #### 2 478403 #### [facility] [address] [place] [address] RBC 4.6 E12/L Normal 4.3-5.9 [facility] Comment on above: Performed By: #### 2 862902 #### [facility] [address] [place] [address] WBC 8.1 E9/L Normal 4.0-11.0 [facility] Comment on above: Performed By: #### 2 768277 #### [facility] [address] [place] [address] CHEMISTRYOrdered By: SYSTEM SYSTEM on 12-12-2024 Amphetamines [...] 12-12-2024 Albumin [Mass/Vol] 4.0 g/dL Normal 3.3-5.0 [facility] Comment on above: Performed By: #### 2 269138 #### [facility] [address] [place] [address] Albumin/Globulin [Mass ratio] 1.4 {ratio} Normal 1.1-2.2 [facility] Comment on above: Performed By: #### 2 109081 #### [facility] [address] [place] [address] Alk Phos 89 Int._Unit/L Normal 21-98 [facility] Comment on above: Performed By: #### 2 [id number] #### [facility] [address] [place] [address] ALT 20 Int._Unit/L Normal 6-46 [facility] Comment on above: Performed By: #### 2 982937 #### [facility] [address] [place] [address] Anion gap [Moles/Vol] 11 mmol/L Normal 6-16 [facility] Comment on above: Performed By: #### 2 [id number] #### [facility] [address] [place] [address] AST 22 Int._Unit/L Normal 5-43 [facility] Comment on above: Performed By: #### 2 508705 #### [facility] [address] [place] [address] Bili Total 0.6 mg/dL Normal 0.0-1.1 [facility] Comment on above: Performed By: #### 2 117566 #### [facility] [address] [place] [address] BUN/Creat Ratio 24 No Units High 10-20 [facility] Comment on above: Performed By: #### 2 [id number] #### [facility] [address] [place] [address] Calcium [Mass/Vol] 9.2 mg/dL Normal 8.9-11.1 [facility] Comment on above: Performed By: #### 2 654375 #### [facility] [address] [place] [address] Chloride [Moles/Vol] 101 mmol/L Normal 101-111 [facility] Comment on above: Performed By: #### 2 638195 #### [facility] [address] [place] [address] CO2 [Moles/Vol] 28 mmol/L Normal 21-31 [facility] Comment on above: Performed By: #### 2 [id number] #### [facility] [address] [place] [address] Creatinine [Mass/Vol] 0.9 mg/dL Normal 0.5-1.3 [facility] Comment on above: Performed By: #### 2 [id number] #### [facility] [address] [place] [address] Globulin (S) [Mass/Vol] 2.9 g/dL Normal 1.4-4.0 [facility] Comment on above: Performed By: #### 2 [id number] #### [facility] [address] [place] [address] Glucose [Mass/Vol] 133 mg/dL Normal 55-199 [facility] Comment on above: Performed By: #### 2 [id number] #### [facility] [address] [place] [address] Potassium [Moles/Vol] 3.5 mmol/L Normal 3.5-5.3 [facility] Comment on above: Performed By: #### 2 267227 #### [facility] [address] [place] [address] Protein [Mass/Vol] 6.9 g/dL Normal 6.0-7.8 [facility] Comment on above: Performed By: #### 2 335249 #### [facility] [address] [place] [address] Sodium [Moles/Vol] 136 mmol/L Normal 135-145 [facility] Comment on above: Performed By: #### 2 866067 #### [facility] [address] [place] [address] Urea nitrogen [Mass/Vol] 22 mg/dL High 5- [facility] Comment on above: Performed By: #### 2 052152 #### [facility] [address] [place] [address] ED Clinical Summaryon 2024 ED Clinical Summary ED Clinical Summary [address] [address] ED Clinical Summary Person Information Name: SHEY OBRIEN/New_Gustavo Age: 74 Years : 1950 Sex: Female Language: Spanish PCP: LATRELL JACK MD Marital Status: Single [...] 12/12/2024 17:40:09 12/12/2024 17:40:09 12/12/2024 17:40:09 ADDRESS: [address] [place] [id number] [facility] DOC NOTES: MEDICAL INFORMATION: Prescriptions Given: Medications [...] (at bedtime). fluticasone nasal (Flonase 0.05 mg/inh [place]) 2 Sprays Nasal Inhalation every day. losartan [...] Instructions: Follow up: DIAGNOSIS: Suicidal ideation Normal [facility] ED Note-Physicianon 12-13-19 ED Note-Physician ED [...] culture. MHP evaluated. Patient be placed at [address] Kim. Assessment/Plan Suicidal ideation [...] a day (at bedtime) Flonase 0.05 mg/inh [place], 2 spray(s), Nasal, Daily losartan 25 mg [...] (12/12/24 13:50 (more content not included)... Normal [facility] Comment on above: Result Comment: Elec tronically Signed By: Elmer Kohli DO\.br\Date and Time Signed: 12/12/24 17:26 EDT ED Patient Education Noteon 12-12-2024 ED Patient Education Note ED Patient Education Note Normal [facility] ED Patient Summaryon 025 ED Patient Summary ED Patient Summary [place] [id number] Patient Discharge Instructions Person Information Name: SHEY OBRIEN Age: 74 Years Arrival Date: 12/12/2024 13:24:04 Discharge Diagnosis: Suicidal ideation Primary Care Physician: LATRELL JACK MD Provider Information Primary Provider: Elmer Kohli DO Advanced Proposal Specialist:None The exam and treatment you received in the Emergency Department were for an urgent problem and are not intended as complete care. It is important that you follow up with a doctor, nurse practitioner, or physician???s regional administrative assistant for ongoing care. If your symptoms [...] opioids can be used to help relieve xmkpzwfh-js-sectlw pain and are often prescribed following a [...] be struggling with addiction, tell your health career portals teacher and ask for guidance or call [facility]???S National Helpline at 0-198-244-PCJF. v Source: [place] Department of Health and Human Services/Center for Disease Control & Prevention Gloria (more content not included)... Normal [facility] Ethanolon 12-12-2024 Ethanol Lvl <10 Normal <=11 [facility] Comment on above: Performed By: #### 2 [id number] #### [facility] [address] [place] [address] HEMATOLOGYOrdered By: SYSTEM SYSTEM on 12-12-2024 Basophils/100 [...] 12-12-2024 U Amph Scr Negative Normal NEGATIVE [facility] Comment on above: Result Comment: Nega tive Cutoff: <1000 ng/mL Performed By: #### 2 102854 #### [facility] [address] [place] [address] U Jessica Scr Negative Normal NEGATIVE [facility] Comment on above: Result Comment: Nega tive Cutoff: <200 ng/mL Performed By: #### 2 257826 #### [facility] [address] [place] [address] U Benzodia Scr Negative Normal NEGATIVE [facility] Comment on above: Result Comment: Nega tive Cutoff: <200 ng/mL Performed By: #### 2 031601 #### [facility] [address] [place] [address] U Cannab Scr Negative Normal NEGATIVE [facility] Comment on above: Result Comment: Nega tive Cutoff: <50 ng/mL Performed By: #### 2 308617 #### [facility] [address] [place] [address] U Cocaine Scr Negative Normal NEGATIVE [facility] Comment on above: Result Comment: Nega tive Cutoff: <300 ng/mL Performed By: #### 2 845907 #### [facility] [address] [place] [address] U Fentanyl Negative Normal NEGATIVE [facility] Comment on above: Result Comment: Nega tive Cutoff: <5 ng/mL These drug screen results are to be used for medical (i.e., treatment) purposes only. Unconfirmed drug screening results must not be used for non-medical purposes (e.g., employment testing, legal testing). Performed By: #### 2 805172 #### [facility] [address] [place] [address] U Opiate Scr Negative Normal NEGATIVE [facility] Comment on above: Result Comment: Nega tive Cutoff: <300 ng/mL Performed By: #### 2 064373 #### [facility] [address] [place] [address] U PCP Scr Negative Normal NEGATIVE [facility] Comment on above: Result Comment: Nega tive Cutoff: <25 ng/mL These drug screen results are to be used for medical (i.e., treatment) purposes only. Unconfirmed drug screening results must not be used for non-medical purposes (e.g., employment testing, legal testing). Performed By: #### 2 025158 #### [facility] [address] [place] [address] UA with Cult Rflxon 12-13-19 25 Color (U) Light-Yellow Normal Yellow [facility] Comment on above: Result Comment: Micr oscopic readings are only performed on those samples that meet specific criteria set forth by [facility]. Performed By: #### 4 [id number] #### [facility] [address] [place] [address] Glucose (U) [Mass/Vol] Negative Normal Negative [facility] Comment on above: Performed By: #### 4 [id number] #### [facility] [address] [place] [address] Ketones Ql (U) Negative Normal Negative [facility] Comment on above: Performed By: #### 4 [id number] #### [facility] [address] [place] [address] UA Blood Negative Normal Negative [facility] Comment on above: Performed By: #### 4 [id number] #### [facility] [address] [place] [address] UA Bacteria 1+ /HPF Abnormal Trace [facility] Comment on above: Performed By: #### 4 [id number] #### [facility] [address] [place] [address] UA Clarity Clear Normal Clear [facility] Comment on above: Performed By: #### 4 [id number] #### [facility] [address] [place] [address] UA Leuk Est 75 [place]/uL Abnormal Negative [facility] Comment on above: Performed By: #### 4 [id number] #### [facility] [address] [place] [address] UA Mucous Trace Normal Negative [facility] Comment on above: Performed By: #### 4 [id number] #### [facility] [address] [place] [address] UA Nitrite Negative Normal Negative [facility] Comment on above: Performed By: #### 4 [id number] #### [facility] [address] [place] [address] UA pH 5.5 Invalid Interpretation Code 5.0-9.0 [facility] Comment on above: Performed By: #### 4 [id number] #### [facility] [address] [place] [address] UA Protein Negative Normal Negative [facility] Comment on above: Performed By: #### 4 [id number] #### [facility] [address] [place] [address] UA Spec Grav 1.009 Invalid Interpretation Code 1.005-1.030 [facility] Comment on above: Performed By: #### 4 [id number] #### [facility] [address] [place] [address] UA Squam Epithelial 0-2 Invalid Interpretation Code [facility] Comment on above: Performed By: #### 4 [id number] #### [facility] [address] [place] [address] UA Urobilinogen Negative Normal Negative [facility] Comment on above: Performed By: #### 4 [id number] #### [facility] [address] [place] [address] Urobilinogen (U) [Mass/Vol] Negative Normal Negative [facility] Comment on above: Performed By: #### 4 [id number] #### [facility] [address] [place] [address] UA Spec Desc Clean Catch Normal [facility] Comment on above: Performed By: #### 4 [id number] #### [facility] [address] [place] [address] URINALYSISOrdered By: SYSTEM SYSTEM on 12-12-2024 Bacteria Auto Ql (U) 1+ /HPF Invalid Interpretation Code Trace/HPF [facility] UA Auto SS Bilirubin Ql (U) Negative Normal Negativemg/ d L [facility] UA Auto SS Clarity (U) Clear (12/12/24 2:18 PM) Normal Clear [facility] UA Auto SS Color (U) Light-Yellow 3 (12/12/24 2:18 PM) Normal Yellow [facility] UA Auto SS Comment on above: Interpretive Data: M icroscopic readings are only performed on those samples that meet specific criteria set forth by [facility]. Epithelial cells.squamous Auto (Urine sed) [#/Area] 0-2 graded/HPF Invalid Interpretation Code FT UA Auto SS Glucose Ql (U) Negative Normal Negativemg/d L FT UA Auto SS Hemoglobin Auto test strip (U) [Mass/Vol] Negative Normal Negativemg/d L FT UA Auto SS Ketones Auto test strip [...] Desc Clean Catch (12/12/24 2:18 PM) Normal [facility] UA Auto SS XR HIP LT MIN 2Von [address] [address] XRay Report Signed Patient: SHEY OBRIEN MR#: [id number] : 1950 Acct:[id number] Age/Sex: 74 / F ADM Date: 12/12/24 Loc: RAD Attending Dr: Will Woodson NP Ordering Physician: Will Woodson NP Date of Service: 12/12/24 Procedure(s): XR hip LT min 2V Accession Number(s): [id number] cc: Will Woodson NP; Latrell Jack M.D. [address] [address] Patient Name: SHEY OBRIEN MRN: [id number] date: 1950 Sex: F Assigned Patient Location: PM Current Patient Location: PM Accession/Order Number: [id number] Exam Date: 12/12/2024 10:32 Report Date: 12/12/2024 [...] Narvaez M.D. 12/12/2024 10:34 AM Dictation Location: [place] [address] Electronically authenticated by: [id number] Y Date: 12/12/2024 10:34 Dictated By: Juliane Narvaez M.D. Signed By: 12/12/24 1037 DD/ 1034 TD/TT: Seed Trucker: [facility] Radiology, Radiologist, - 12/12/2024 [place] [address] XRay Report Signed Patient: SHEY OBRIEN MR#: [id number] : 1950 Acct:[id number] Age/Sex: 74 / F ADM Date: 12/12/24 Loc: RAD Attending Dr: Will Woodson NP Ordering Physician: Will Woodson NP Date of Service: 12/12/24 Procedure(s): XR hip LT min 2V Accession Number(s): [id number] cc: Will Woodson NP; Latrell Jack M.D. [place] [id number] Patient Name: SHEY OBRIEN MRN: [facility]:[id number] date: 1950 Sex: F Assigned Patient Location: PM Current Patient Location: PM Accession/Order Number: [id number] Exam Date: 12/12/2024 10:32 Report Date: 12/12/2024 [...] Narvaez M.D. 12/12/2024 10:34 AM Dictation Location: [place] [address] Electronically authenticated by: [id number] Y Date: 12/12/2024 10:34 Dictated By: Juliane Narvaez M.D. Signed By: 12/12/24 1037 DD/ 1034 TD/TT: Seed Trucker: [facility] Radiology Study observation (narrative) [facility] XR HIP LT MIN 2VOrdered By: Radiologist Radiology on 12-12-2024 [facility] Work Phone: eGFRon 12-12-2024 eGFR 67 mL/min/1.73 m2 Normal >=59 [facility] Comment on above: Performed By: #### 1 [id number] #### [facility] [address] [place] [address] ALL CBC WITH AUTO DIFFon BASOPHILS ABSOLUTE AUTO 0 [facility] Basophils/100 WBC (Bld) 0.4 % 0.2 - 2.0 % [facility] Eosinophils/100 WBC (Bld) 3.5 % 0.9 - 7.0 % [facility] Erythrocyte distribution width (RBC) [Ratio] 12.8 % 11.0 - 15.0 % [facility] Hematocrit (Bld) [Volume fraction] 39.2 % 36.0 - 48.0 % [facility] Hemoglobin (Bld) [Mass/Vol] 13.1 g/dL 12.0 - 16.0 g/dL [facility] IMMATURE GRANULOCYTES ABS AUTO 0.09 High [facility] Immature granulocytes/100 WBC (Bld) 1.3 % High 0.0 - 0.5 % [facility] Interpretation and review of laboratory results Abnormal [facility] LYMPHOCYTES ABSOLUTE AUTO 1.2 [facility] Lymphocytes/100 WBC (Bld) 18.3 % Low 20.5 - 60.0 % [facility] MCH (RBC) [Entitic mass] 31.9 pg 26.7 - 34.0 pg [facility] MCHC (RBC) [Mass/Vol] 33.4 g/dL 29.9 - 35.2 g/dL [facility] MCV (RBC) [Entitic vol] 95.4 fL 81.0 - 99.0 fL [facility] MONOCYTES ABSOLUTE AUTO 0.4 [facility] Monocytes/100 WBC (Bld) 6.5 % 1.7 - 12.0 % [facility] NEUTROPHILS ABSOLUTE AUTO 4.7 [facility] Neutrophils/100 WBC (Bld) 70 % 43.0 - 75.0 % [facility] Platelet mean volume (Bld) [Entitic vol] 10.6 fL 9.5 - 13.5 fL [facility] EO # 0.2 [facility] PLT 194 [facility] TB RBC 4.11 Low [facility] TB WBC 6.8 [facility] CNOVon 08-07-2024 CNTRISTAN Office Visit (ARNOLDO ) SHEY OBRIEN ([id number]) 1950 F Date Time Provider Department 08/07/24 [...] Katarzyna Snyder APRN.CNP 08/07/2024 3:37 PM Signed [facility] Clinic Date: August [...] completed prior to appointment Katarzyna Snyder, MSN, LOG BUNCHER August 07, 2024 Referring Provider: BARI CASTILLO [[id number]] Allergies As of Date: 08/07/2024 (No Known Allergies) Date Reviewed: 08/07/2024 Reviewed by: Olga Lidia Blake MA - Fully Assessed Reason for Visit: Post Op [174] Primary Visit Diagnosis:Postoperativ e visit [Z (more content not included)... Normal [facility] Basic metabolic 2000 panelon 07-26-2024 Anion gap [Moles/Vol] 12 mmol/L Normal 8-15 [facility] Comment on above: Order Comment: Speci men Type: BLOOD SPECIMEN Ordering Facility: [facility] Address: [address] [place] [address] Performed By: #### 2 4321-2, HSTNT, , 2776- #### [facility] CLIA [id number] [address] [place] [address] [place] Calcium [Mass/Vol] 9.0 mg/dL Normal 8.5-10.2 [facility] Comment on above: Order Comment: Speci men Type: BLOOD SPECIMEN Ordering Facility: [facility] Address: [address] [place] [address] Performed By: #### 2 4321-2, HSTNT, , 2776-07 #### [facility] CLIA [id number] [address] [place] [address] [place] Chloride [Moles/Vol] 107 mmol/L Normal 98-107 [facility] Comment on above: Order Comment: Speci men Type: BLOOD SPECIMEN Ordering Facility: [facility] Address: [address] [place] [address] Performed By: #### 2 4321-2, HSTNT, , 2776-07 #### [facility] CLIA [id number] [address] [place] [address] [place] CO2 [Moles/Vol] 24 mmol/L Normal 22-30 [facility] Comment on above: Order Comment: Speci men Type: BLOOD SPECIMEN Ordering Facility: [facility] Address: [address] [place] [address] Performed By: #### 2 4321-2, HSTNT, , 2776- #### [facility] CLIA [id number] [address] [place] [address] [place] Creatinine [Mass/Vol] 0.92 mg/dL Normal 0.58-0.96 [facility] Comment on above: Order Comment: Fabiola bliss Type: BLOOD SPECIMEN Ordering Facility: [facility] Address: [address] [place] [address] Performed By: #### 2 4321-2, HSTNT, , 2776-07 #### [facility] CLIA [id number] [address] [place] [address] [place] Creatinine and Glomerular filtration rate.predicted panel (S/P/Bld) 66 mL/min/1.73m??? Normal >=60 [facility] Comment on above: Order Comment: Fabiola bliss Type: BLOOD SPECIMEN Ordering Facility: [facility] Address: [address] [place] [address] Result Comment: Ira mated Glomerular Filtration Rate [...] 4321-2, HSTNT, , 2776-07 #### [facility] CLIA [id number] [address] [place] [address] [place] Glucose [Mass/Vol] 112 mg/dL High 74-99 [facility] Comment on above: Order Comment: Fabiola bliss Type: BLOOD SPECIMEN Ordering Facility: [facility] Address: [address] [place] [address] Result Comment: The [place] [employer] (ADA) provides guidance for [...] Standards of Medical Care in Diabetes 2016, [place] [employer]. Diabetes Care. 2016.39(Suppl 1). Performed By: #### 2 4321-2, HSTNT, , 2776-07 #### [facility] CLIA [id number] [address] [place] [address] [place] Potassium [Moles/Vol] 3.4 mmol/L Low 3.7-5.1 [facility] Comment on above: Order Comment: Speci men Type: BLOOD SPECIMEN Ordering Facility: [facility] Address: [address] [place] [address] Performed By: #### 2 4321-2, HSTNT, , 2776-07 #### [facility] CLIA [id number] [address] [place] [address] [place] Sodium [Moles/Vol] 143 mmol/L Normal 136-144 [facility] Comment on above: Order Comment: Speci men Type: BLOOD SPECIMEN Ordering Facility: [facility] Address: [address] [place] [address] Performed By: #### 2 4321-2, HSTNT, , 2776-07 #### [facility] CLIA [id number] [address] [place] [address] [place] Urea nitrogen [Mass/Vol] 10 mg/dL Normal 7-21 [facility] Comment on above: Order Comment: Speci men Type: BLOOD SPECIMEN Ordering Facility: [facility] Address: [address] [place] [address] Performed By: #### 2 4321-2, HSTNT, , 2776-07 #### [facility] CLIA [id number] [address] [place] [address] [place] CASE MANAGEMon 07-26-2024 CASE MANAGEM HNO ID: [id number] Author: KRISTIE DIAZ, ? Service: ? Author Type: ? Type: Care Mgt Progress Note Filed: 07/26/2024 11:58 Note Text: CARE MANAGEMENT PROGRESS NOTE SERVICE DATE: 07/26/2024 SERVICE TIME: 11:57 AM LOS: 2 days IMM Follow Up Copy Given: Yes Copy given to:: Patient Method: In Person SIGNATURE: Kristie Diaz CMA PATIENT NAME: Shey Obrien DATE: July 26, 2024 TIME: 11:57 AM Normal [facility] CBC W Auto Differential pane l (Bld)on 07-26-2024 Basophils (Bld) [#/Vol] 10*3/uL Normal <0.11 [facility] Comment on above: Order Comment: Speci men Type: BLOOD SPECIMEN Ordering Facility: [facility] Address: [address] [place] [address] Performed By: #### 2 4321-2, HSTNT, , 2776-07 #### [facility] CLIA [id number] [address] [place] [address] [place] Basophils/100 WBC (Bld) 0.3 % Normal [facility] Comment on above: Order Comment: Speci men Type: BLOOD SPECIMEN Ordering Facility: [facility] Address: [address] [place] [address] Performed By: #### 2 4321-2, HSTNT, , 2776-07 #### [facility] CLIA [id number] [address] [place] [address] [place] Differential cell count method Nom (Bld) Auto Normal [facility] Comment on above: Order Comment: Speci men Type: BLOOD SPECIMEN Ordering Facility: [facility] Address: [address] [place] [address] Performed By: #### 2 4321-2, HSTNT, , 2776-07 #### [facility] CLIA [id number] [address] [place] [address] [place] Eosinophils (Bld) [#/Vol] 0.08 10*3/uL Normal <0.46 [facility] Comment on above: Order Comment: Speci men Type: BLOOD SPECIMEN Ordering Facility: [facility] Address: [address] [place] [address] Performed By: #### 2 4321-2, HSTNT, , 2776-07 #### [facility] CLIA [id number] [address] [place] [address] [place] Eosinophils/100 WBC (Bld) 1.3 % Normal [facility] Comment on above: Order Comment: Speci men Type: BLOOD SPECIMEN Ordering Facility: [facility] Address: [address] [place] [address] Performed By: #### 2 4321-2, HSTNT, , 2776-07 #### [facility] CLIA [id number] [address] [place] [address] [place] Erythrocyte distribution width (RBC) [Ratio] 13.9 % Normal 11.5-15.0 [facility] Comment on above: Order Comment: Speci men Type: BLOOD SPECIMEN Ordering Facility: [facility] Address: [address] [place] [address] Performed By: #### 2 4321-2, HSTNT, , 2776-07 #### [facility] CLIA [id number] [address] [place], [place] [id number] [place] Hematocrit (Bld) [Volume fraction] 35.1 % Low 36.0-46.0 [facility] Comment on above: Order Comment: Speci men Type: BLOOD SPECIMEN Ordering Facility: [facility] Address: [address] [place] [address] Performed By: #### 2 4321-2, HSTNT, , 2776-07 #### [facility] CLIA [id number] [address] [place], [place] [id number] [place] Hemoglobin (Bld) [Mass/Vol] 12.2 g/dL Normal 11.5-15.5 [facility] Comment on above: Order Comment: Speci men Type: BLOOD SPECIMEN Ordering Facility: [facility] Address: [address] [place] [address] Performed By: #### 2 4321-2, HSTNT, , 2776-07 #### [facility] CLIA [id number] [address] [place] [address] [place] Immature granulocytes (Bld) [#/Vol] 0.04 10*3/uL Normal <0.10 [facility] Comment on above: Order Comment: Speci men Type: BLOOD SPECIMEN Ordering Facility: [facility] Address: [address] [place] [address] Performed By: #### 2 4321-2, HSTNT, , 2776-07 #### [facility] CLIA [id number] [address] [place] [address] [place] Immature granulocytes/100 WBC (Bld) 0.7 % Normal [facility] Comment on above: Order Comment: Speci men Type: BLOOD SPECIMEN [facility] [facility] Address: [address] [place] [address] Performed By: #### 2 4321-2, HSTNT, , 2776-07 #### [facility] CLIA [id number] [address] [place] [address] [place] Lymphocytes (Bld) [#/Vol] 1.90 10*3/uL Normal 1.00-4.00 [facility] Comment on above: Order Comment: Speci men Type: BLOOD SPECIMEN Ordering Facility: [facility] Address: [address] [place] [address] Performed By: #### 2 4321-2, HSTNT, , 2776-07 #### [facility] CLIA [id number] [address] [place], [place] [address] [place] Lymphocytes/100 WBC (Bld) 30.9 % Normal [facility] Comment on above: Order Comment: Speci men Type: BLOOD SPECIMEN Ordering Facility: [facility] Address: [address] [place] [address] Performed By: #### 2 4321-2, HSTNT, , 2776-07 #### [facility] CLIA [id number] [address] [place] [address] [place] MCH (RBC) [Entitic mass] 32.9 pg Normal 26.0-34.0 [facility] Comment on above: Order Comment: Speci men Type: BLOOD SPECIMEN Ordering Facility: [facility] Address: [address] [place] [address] Performed By: #### 2 4321-2, HSTNT, , 2776-07 #### [facility] CLIA [id number] [address] [place] [address] [place] MCHC (RBC) [Mass/Vol] 34.8 g/dL Normal 30.5-36.0 [facility] Comment on above: Order Comment: Speci men Type: BLOOD SPECIMEN Ordering Facility: [facility] Address: [address] [place] [address] Performed By: #### 2 4321-2, HSTNT, , 2776-07 #### [facility] CLIA [id number] [address] [place] [address] [place] MCV (RBC) [Entitic vol] 94.6 fL Normal 80.0-100.0 [facility] Comment on above: Order Comment: Speci men Type: BLOOD SPECIMEN Ordering Facility: [facility] Address: [address] [place] [address] Performed By: #### 2 4321-2, HSTNT, 98105-7, 277- #### [facility] CLIA [id number] [address] [place] [address] [place] Monocytes (Bld) [#/Vol] 0.46 10*3/uL Normal <0.87 [facility] Comment on above: Order Comment: Speci men Type: BLOOD SPECIMEN Ordering Facility: [facility] Address: [address] [place] [address] Performed By: #### 2 4321-2, HSTNT, , 2776- #### [facility] CLIA [id number] [address] [place] [address] [place] Monocytes/100 WBC (Bld) 7.5 % Normal [facility] Comment on above: Order Comment: Speci men Type: BLOOD SPECIMEN Ordering Facility: [facility] Address: [address] [place] [address] Performed By: #### 2 4321-2, HSTNT, 83324-6, 277- #### [facility] CLIA [id number] [address] [place] [address] [place] Neutrophils (Bld) [#/Vol] 3.64 10*3/uL Normal 1.45-7.50 [facility] Comment on above: Order Comment: Speci men Type: BLOOD SPECIMEN Ordering Facility: [facility] Address: [address] [place] [address] Performed By: #### 2 4321-2, HSTNT, , 2776- #### [facility] CLIA [id number] [address] [place] [address] [place] Neutrophils/100 WBC (Bld) 59.3 % Normal [facility] Comment on above: Order Comment: Speci men Type: BLOOD SPECIMEN Ordering Facility: [facility] Address: [address] [place] [address] Performed By: #### 2 4321-2, HSTNT, 13914-6, 2776- #### [facility] CLIA [id number] [address] [place] [address] [place] Nucleated RBC (Bld) [#/Vol] 10*3/uL Normal <0.01 [facility] Comment on above: Order Comment: Speci men Type: BLOOD SPECIMEN Ordering Facility: [facility] Address: [address] [place] [address] Performed By: #### 2 4321-2, HSTNT, 94421-4, 2776- #### [facility] CLIA [id number] [address] [place] [address] [place] Nucleated RBC/100 WBC (Bld) [Ratio] 0.0 /100 WBC Normal [facility] Comment on above: Order Comment: Speci men Type: BLOOD SPECIMEN Ordering Facility: [facility] Address: [address] [place] [address] Performed By: #### 2 4321-2, HSTNT, , 2776- #### [facility] CLIA [id number] [address] [place] [address] [place] Platelet mean volume (Bld) [Entitic vol] 9.9 fL Normal 9.0-12.7 [facility] Comment on above: Order Comment: Speci men Type: BLOOD SPECIMEN Ordering Facility: [facility] Address: [address] [place] [address] Performed By: #### 2 4321-2, HSTNT, , 2776- #### [facility] CLIA [id number] [address] [place] [address] [place] Platelets (Bld) [#/Vol] 143 10*3/uL Low 150-400 [facility] Comment on above: Order Comment: Speci men Type: BLOOD SPECIMEN Ordering Facility: [facility] Address: [address] [place] [address] Performed By: #### 2 4321-2, HSTNT, 11886-1, 2776- #### [facility] CLIA [id number] [address] [place] [address] [place] RBC (Bld) [#/Vol] 3.71 10*6/uL Low 3.90-5.20 [facility] Comment on above: Order Comment: Speci men Type: BLOOD SPECIMEN Ordering Facility: [facility] Address: [address] [place] [address] Performed By: #### 2 4321-2, HSTNT, 58393-4, 2776- #### [facility] CLIA [id number] [address] [place] [address] [place] WBC (Bld) [#/Vol] 6.14 10*3/uL Normal 3.70-11.00 [facility] Comment on above: Order Comment: Speci men Type: BLOOD SPECIMEN Ordering Facility: [facility] Address: [address] [place] [address] Performed By: #### 2 4321-2, HSTNT, , 2776-07 #### [facility] CLIA [id number] [address] [place] [address] [place] CNCOon 07-26-2024 CNCO Letter Text Normal [facility] CNDSon 07-26-2024 CNDS HNO ID: [id number] Author: KASSY VERDE APRN.CNP Service: General Surgery Author Type: Nurse Practitioner [...] the PACU and transferred to the [facility] for the remainder of her postoperative [...] Commonly know (more content not included)... Normal [facility] Magnesium SerPl-mCncon 07-26 Magnesium [Mass/Vol] 2.0 mg/dL Normal 1.7-2.3 [facility] Comment on above: Order Comment: Speci men Type: BLOOD SPECIMEN Ordering Facility: [facility] Address: [address] [place] [address] Performed By: #### 2 4321-2, HSTNT, 63923-3, 2777-1 #### [facility] CLIA [id number] [address] [place] [address] OF [facility] PT EDon 07-26-2024 PT ED HNO ID: [id number] Author: NOREEN RODNEY DTR Service: Nutrition Therapy Author Type: Crop Roller Type: Patient Education Filed: 07/26/2024 14:04 Note [...] 26, 2024 TIME: 2:04 PM PAGER: Normal [facility] Phosphate SerPl-mCncon 07-26 Phosphate [Mass/Vol] 2.5 mg/dL Low 2.7-4.8 [facility] Comment on above: Order Comment: Speci izaiah Type: BLOOD SPECIMEN Ordering Facility: [facility] Address: [address] [place] [address] Performed By: #### 2 4321-2, HSTNT, 18780-9, 2777-1 #### [facility] CLIA [id number] [address] [place] [address] [place] HIGH SENSITIVITY TROPONIN To n 07-25-2024 Troponin T.cardiac High sensitivity method [Mass/Vol] 12 ng/L High <12 [facility] Comment on above: Order Comment: Fabiola bliss Type: BLOOD SPECIMEN Ordering Facility: [facility] Address: [address] [place] [address] Performed By: #### 2 4321-2, HSTNT, 92187-1, 2776-1 #### [facility] CLIA [id number] [address] [place] [address] [place] XR UPPER GI SINGLE [...] (min:sec). Air kerma: 38.9 mGy. RESULT: Preliminary police officer booking: Gastric distention. No dilated bowel in the [...] ESOPHAGEAL TRANSIT, LIKELY RELATED TO POSTOPERATIVE EDEMA. Seed Trucker: KODY Transcribe Date/Time: Jul 25 2024 10:06A Dictated by : NAHID PACHECO MD This examination was interpreted and the report reviewed and electronically signed by: MARTHA CATALAN MD on Jul 25 2024 10:13AM EST [id number] Normal [facility] ANES POSTPROC EVALon 025 ANES POSTPROC EVAL HNO ID: [id number] Author: FLOR SNOW MD Service: ? Author Type: Physician Type: Anesthesia Postprocedure Evaluation Filed: 07/24/2024 15:38 Note Text: POST ANESTHESIA EVALUATION NOTE : 1950 Procedure Summary Date: 07/24/24 Room / Location: [address] [facility] Anesthesia Start: 1055 Anesthesia Stop: 1430 [...] July 24, 2024 TIME: 3:38 PM CSN: [id number] Normal [facility] ANES PRE-OPon 07-24-2024 ANES PRE-OP HNO ID: [id number] Author: FLOR SNOW MD Service: ? Author Type: Physician Type: Anesthesia Preprocedure Evaluation Filed: 07/24/2024 09:16 Note Text: ANESTHESIOLOGY DAY OF SURGERY NOTE : 1950 Procedure Information Date/Time: 07/24/24 1051 Procedure: LAPAROSCOPIC RPR PARAESOPHAGEAL HERNIA W/O FUNDOPLASTY W/ MESH (Abdomen) Location: [facility] Surgeons: Xavier Boyd MD [...] Surgery/Procedure. SIGNATURE: Flor Snow MD PATIENT NAME: hSey Obrien DATE: July 24, 2024 TIME: 9:15 AM CSN: [id number] Normal [facility] BRIEF OP NOTon 07-24-2024 BRIEF OP NOT HNO ID: [id number] Author: YAN MOSER, ? Service: General Surgery Author Type: Physician Type: Brief Op Note Filed: 07/24/2024 14:16 Note Text: BRIEF OPERATIVE / PROCEDURE NOTE LOG ID: [id number] SURGERY/PROCEDURE DATE: 07/24/2024 INCISION/PROCEDURE START TIME: 11:37 AM INCISION CLOSE/PROCEDURE END TIME: 2:12 PM SURGEON(S)/PROCEDURALI ST(S) AND CARGO SUPERVISOR(S): Surgeons and Role: * Xavier Boyd [...] 24, 2024 TIME: 2:15 PM PAGER/CONTACT #: [phone] Normal [facility] Basic metabolic 2000 panelon 07-24-2024 Anion gap [Moles/Vol] 15 mmol/L Normal 8-15 [facility] Comment on above: Order Comment: Speci men Type: BLOOD SPECIMEN Ordering Facility: [facility] Address: [address] [place] [address] Performed By: #### 2 4321-2, HSTNT, , 2776- #### [facility] CLIA [id number] [address] [place] [address] [place] Calcium [Mass/Vol] 9.3 mg/dL Normal 8.5-10.2 [facility] Comment on above: Order Comment: Speci men Type: BLOOD SPECIMEN Ordering Facility: [facility] Address: [address] [place] [address] Performed By: #### 2 4321-2, HSTNT, , 2776-07 #### [facility] CLIA [id number] [address] [place] [address] [place] Chloride [Moles/Vol] 105 mmol/L Normal 98-107 [facility] Comment on above: Order Comment: Speci men Type: BLOOD SPECIMEN Ordering Facility: [facility] Address: [address] [place] [address] Performed By: #### 2 4321-2, HSTNT, , 2776-07 #### [facility] CLIA [id number] [address] [place] [address] [place] CO2 [Moles/Vol] 21 mmol/L Low 22-30 [facility] Comment on above: Order Comment: Speci men Type: BLOOD SPECIMEN Ordering Facility: [facility] Address: [address] [place] [address] Performed By: #### 2 4321-2, HSTNT, , 2776-07 #### [facility] CLIA [id number] [address] [place], [place] [address] [place] Creatinine [Mass/Vol] 0.83 mg/dL Normal 0.58-0.96 [facility] Comment on above: Order Comment: Speci men Type: BLOOD SPECIMEN Ordering Facility: [facility] Address: [address] [place] [address] Performed By: #### 2 4321-2, HSTNT, , 2777 #### [facility] CLIA [id number] [address] [place] [address] [place] Creatinine and Glomerular filtration rate.predicted panel (S/P/Bld) 75 mL/min/1.73m??? Normal >=60 [facility] Comment on above: Order Comment: Fabiola bliss Type: BLOOD SPECIMEN Ordering Facility: [facility] Address: [address] [place] [address] Result Comment: Ira mated Glomerular Filtration Rate [...] Performed By: #### 2 4321-2, HSTNT, , 2777- #### [facility] CLIA [id number] [address] [place] [address] [place] Glucose [Mass/Vol] 171 mg/dL High 74-99 [facility] Comment on above: Order Comment: Fabiola bliss Type: BLOOD SPECIMEN Ordering Facility: [facility] Address: [address] [place] [address] Result Comment: The [place] [employer] (ADA) provides guidance for [...] Standards of Medical Care in Diabetes 2016, [place] [employer]. Diabetes Care. 2016.39(Suppl 1). Performed By: #### 2 4321-2, HSTNT, , 2776-07 #### [facility] CLIA [id number] [address] [place] [address] [place] Potassium [Moles/Vol] 4.0 mmol/L Normal 3.7-5.1 [facility] Comment on above: Order Comment: Speci men Type: BLOOD SPECIMEN Ordering Facility: [facility] Address: [address] [place] [address] Performed By: #### 2 4321-2, HSTNT, , 2776-07 #### [facility] CLIA [id number] [address] [place] [address] [place] Sodium [Moles/Vol] 141 mmol/L Normal 136-144 [facility] Comment on above: Order Comment: Speci men Type: BLOOD SPECIMEN Ordering Facility: [facility] Address: [address] [place] [address] Performed By: #### 2 4321-2, HSTNT, , 2776-07 #### [facility] CLIA [id number] [address] [place] [address] [place] Urea nitrogen [Mass/Vol] 10 mg/dL Normal 7-21 [facility] Comment on above: Order Comment: Speci men Type: BLOOD SPECIMEN Ordering Facility: [facility] Address: [address] [place] [address] Performed By: #### 2 4321-2, HSTNT, , 2776-07 #### [facility] CLIA [id number] [address] [place] [address] [place] CBC W Auto Differential pane l (Bld)on 07-24-2024 Basophils (Bld) [#/Vol] 10*3/uL Normal <0.11 [facility] Comment on above: Order Comment: Speci men Type: BLOOD SPECIMEN Ordering Facility: [facility] Address: [address] [place] [address] Performed By: #### 5 7021-8 #### [facility] CLIA [id number] [address] [place] [address] [place] Basophils/100 WBC (Bld) 0.3 % Normal [facility] Comment on above: Order Comment: Speci men Type: BLOOD SPECIMEN Ordering Facility: [facility] Address: [address] [place] [address] Performed By: #### 5 7021-8 #### [facility] CLIA [id number] [address] [place] [address] [place] Differential cell count method Nom (Bld) Auto Normal [facility] Comment on above: Order Comment: Speci men Type: BLOOD SPECIMEN Ordering Facility: [facility] Address: [address] [place] [address] Performed By: #### 5 7021-8 #### [facility] CLIA [id number] [address] [place] [address] [place] Eosinophils (Bld) [#/Vol] 10*3/uL Normal <0.46 [facility] Comment on above: Order Comment: Speci men Type: BLOOD SPECIMEN Ordering Facility: [facility] Address: [address] [place] [address] Performed By: #### 5 7021-8 #### [facility] CLIA [id number] [address] [place] [address] [place] Eosinophils/100 WBC (Bld) 0.0 % Normal [facility] Comment on above: Order Comment: Speci men Type: BLOOD SPECIMEN Ordering Facility: [facility] Address: [address] [place] [address] Performed By: #### 5 7021-8 #### [facility] CLIA [id number] [address] [place] [address] [place] Erythrocyte distribution width (RBC) [Ratio] 13.9 % Normal 11.5-15.0 [facility] Comment on above: Order Comment: Speci men Type: BLOOD SPECIMEN Ordering Facility: [facility] Address: [address] [place] [address] Performed By: #### 5 7021-8 #### [facility] CLIA [id number] [address] [place] [address] [place] Hematocrit (Bld) [Volume fraction] 38.8 % Normal 36.0-46.0 [facility] Comment on above: Order Comment: Speci men Type: BLOOD SPECIMEN Ordering Facility: [facility] Address: [address] [place] [address] Performed By: #### 5 7021-8 #### [facility] CLIA [id number] [address] [place] [address] [place] Hemoglobin (Bld) [Mass/Vol] 13.4 g/dL Normal 11.5-15.5 [facility] Comment on above: Order Comment: Speci men Type: BLOOD SPECIMEN Ordering Facility: [facility] Address: [address] [place] [address] Performed By: #### 5 7021-8 #### [facility] CLIA [id number] [address] [place] [address] [place] Immature granulocytes (Bld) [#/Vol] 10*3/uL Normal <0.10 [facility] Comment on above: Order Comment: Speci men Type: BLOOD SPECIMEN Ordering Facility: [facility] Address: [address] [place] [address] Performed By: #### 5 7021-8 #### [facility] CLIA [id number] [address] [place] [address] [place] Immature granulocytes/100 WBC (Bld) 0.3 % Normal [facility] Comment on above: Order Comment: Speci men Type: BLOOD SPECIMEN Ordering Facility: [facility] Address: [address] [place] [address] Performed By: #### 5 7021-8 #### [facility] CLIA [id number] [address] [place] [address] [place] Lymphocytes (Bld) [#/Vol] 0.48 10*3/uL Low 1.00-4.00 [facility] Comment on above: Order Comment: Speci men Type: BLOOD SPECIMEN Ordering Facility: [facility] Address: [address] [place] [address] Performed By: #### 5 7021-8 #### [facility] CLIA [id number] [address] [place] [address] [place] Lymphocytes/100 WBC (Bld) 6.7 % Normal [facility] Comment on above: Order Comment: Speci men Type: BLOOD SPECIMEN Ordering Facility: [facility] Address: [address] [place] [address] Performed By: #### 5 7021-8 #### [facility] CLIA [id number] [address] [place] [address] [place] MCH (RBC) [Entitic mass] 32.5 pg Normal 26.0-34.0 [facility] Comment on above: Order Comment: Speci men Type: BLOOD SPECIMEN Ordering Facility: [facility] Address: [address] [place] [address] Performed By: #### 5 7021-8 #### [facility] CLIA [id number] [address] [place] [address] [place] MCHC (RBC) [Mass/Vol] 34.5 g/dL Normal 30.5-36.0 [facility] Comment on above: Order Comment: Speci men Type: BLOOD SPECIMEN Ordering Facility: [facility] Address: [address] [place] [address] Performed By: #### 5 7021-8 #### [facility] CLIA [id number] [address] [place] [address] [place] MCV (RBC) [Entitic vol] 94.2 fL Normal 80.0-100.0 [facility] Comment on above: Order Comment: Speci men Type: BLOOD SPECIMEN Ordering Facility: [facility] Address: [address] [place] [address] Performed By: #### 5 7021-8 #### [facility] CLIA [id number] [address] [place], [place] [address] [place] Monocytes (Bld) [#/Vol] 0.23 10*3/uL Normal <0.87 [facility] Comment on above: Order Comment: Speci men Type: BLOOD SPECIMEN Ordering Facility: [facility] Address: [address] [place] [address] Performed By: #### 5 7021-8 #### [facility] CLIA [id number] [address] [place] [address] [place] Monocytes/100 WBC (Bld) 3.2 % Normal [facility] Comment on above: Order Comment: Speci men Type: BLOOD SPECIMEN Ordering Facility: [facility] Address: [address] [place] [address] Performed By: #### 5 7021-8 #### [facility] CLIA [id number] [address] [place] [address] [place] Neutrophils (Bld) [#/Vol] 6.43 10*3/uL Normal 1.45-7.50 [facility] Comment on above: Order Comment: Speci men Type: BLOOD SPECIMEN Ordering Facility: [facility] Address: [address] [place] [address] Performed By: #### 5 7021-8 #### [facility] CLIA [id number] [address] [place] [address] [place] Neutrophils/100 WBC (Bld) 89.5 % Normal [facility] Comment on above: Order Comment: Speci men Type: BLOOD SPECIMEN Ordering Facility: [facility] Address: [address] [place] [address] Performed By: #### 5 7021-8 #### [facility] CLIA [id number] [address] [place] [address] [place] Nucleated RBC (Bld) [#/Vol] 10*3/uL Normal <0.01 [facility] Comment on above: Order Comment: Speci men Type: BLOOD SPECIMEN Ordering Facility: [facility] Address: [address] [place] [address] Performed By: #### 5 7021-8 #### [facility] CLIA [id number] [address] [place] [address] [place] Nucleated RBC/100 WBC (Bld) [Ratio] 0.0 /100 WBC Normal [facility] Comment on above: Order Comment: Speci men Type: BLOOD SPECIMEN Ordering Facility: [facility] Address: [address] [place] [address] Performed By: #### 5 7021-8 #### [facility] CLIA [id number] [address] [place] [address] [place] Platelet mean volume (Bld) [Entitic vol] 10.0 fL Normal 9.0-12.7 [facility] Comment on above: Order Comment: Speci men Type: BLOOD SPECIMEN Ordering Facility: [facility] Address: [address] [place] [address] Performed By: #### 5 7021-8 #### [facility] [facility] CLIA [id number] [address] [place] [address] [place] Platelets (Bld) [#/Vol] 144 10*3/uL Low 150-400 [facility] Comment on above: Order Comment: Speci men Type: BLOOD SPECIMEN Ordering Facility: [facility] Address: [address] [place] [address] Performed By: #### 5 7021-8 #### [facility] CLIA [id number] [address] [place] [address] [place] RBC (Bld) [#/Vol] 4.12 10*6/uL Normal 3.90-5.20 [facility] Comment on above: Order Comment: Speci men Type: BLOOD SPECIMEN Ordering Facility: [facility] Address: [address] [place] [address] Performed By: #### 5 7021-8 #### [facility] CLIA [id number] [address] [place] [address] [place] WBC (Bld) [#/Vol] 7.18 10*3/uL Normal 3.70-11.00 [facility] Comment on above: Order Comment: Speci men Type: BLOOD SPECIMEN Ordering Facility: [facility] Address: [address] [place] [address] Performed By: #### 5 7021-8 #### [facility] CLIA [id number] [address] [place] [address] [place] HIGH SENSITIVITY TROPONIN To n 07-24-2024 Troponin T.cardiac High sensitivity method [Mass/Vol] 8 ng/L Normal <12 [facility] Comment on above: Order Comment: Speci men Type: BLOOD SPECIMEN Ordering Facility: [facility] Address: [address] [place] [address] Performed By: #### 2 4321-2, HSTNT, 44065-0, 2776-1 #### [facility] CLIA [id number] [address] [place] [address] [place] Magnesium SerPl-mCncon 07-24 Magnesium [Mass/Vol] 1.7 mg/dL Normal 1.7-2.3 [facility] Comment on above: Order Comment: Speci men Type: BLOOD SPECIMEN Ordering Facility: [facility] Address: [address] [place] [address] Performed By: #### 2 4321-2, HSTNT, 04477-1, 2776-1 #### [facility] CLIA [id number] [address] [place] OPERATIVE NOon 07-24-2024 OPERATIVE NO HNO ID: [id number] Author: XAVIER BOYD MD Service: General Surgery Author Type: Physician Type: Operative Report Filed: 07/24/2024 14:31 Note Text: OPERATIVE/PROCEDURE REPORT LOG ID: [id number] SURGERY/PROCEDURE DATE: 07/24/2024 INCISION/PROCEDURE START TIME: 11:37 AM INCISION CLOSE/PROCEDURE END TIME: 2:12 PM SURGEON(S)/PROCEDURALI ST(S) AND CARGO SUPERVISOR(S): Surgeons and Role: * Xavier Boyd [...] the left and right subcostal regions. An regional administrative assistant 5 mm trocar was placed in [...] retroesophageal window was created and a 1/4? Delevan drain was used to encircle the esophagus [...] required to assist with this case. The regional administrative assistant performed retraction and assisted with exposure. PRE-OP/PRE-PROCEDURE DIAGNOSIS: Type III paraesophageal hernia, symptomatic POST-OP/POST-PROCEDURE DIAGNOSIS: Same as Preop ESTIMATED BLOOD LOSS: 30 mls SPECIMENS: None IMPLANTABLE DEVICES: NONE DRAINS: None COMPLICATIONS: None CLOSURE TECHNIQUE: Primary PARTICIPATION IN SURGERY/PROCEDURE: I/primary surgeon/proceduralist performed the procedure with assistance. SIGNATURE: Xavier Boyd MD PATIENT NAME: Shey Obrien DATE: July 24, 2024 TIME: 2:27 PM Normal [facility] Phosphate SerPl-mCncon 07-24 Phosphate [Mass/Vol] 3.6 mg/dL Normal 2.7-4.8 [facility] Comment on above: Order Comment: Speci men Type: BLOOD SPECIMEN Ordering Facility: [facility] Address: [address] [place] [address] Performed By: #### 2 4321-2, HSTNT, , 2776-07 #### [facility] CLIA [id number] [address] [place] [address] [place] CBC W Auto Differential pane l (Bld)on 07-23-2024 Basophils (Bld) [#/Vol] 0.04 10*3/uL Normal <0.11 [facility] Comment on above: Order Comment: Speci men Type: BLOOD SPECIMEN Ordering Facility: [facility] Address: [address] [place] [address] Performed By: #### 2 4321-2, HSTNT, , 2776-07 #### [facility] CLIA [id number] [address] [place] [address] [place] Basophils/100 WBC (Bld) 0.8 % Normal [facility] Comment on above: Order Comment: Speci men Type: BLOOD SPECIMEN Ordering Facility: [facility] Address: [address] [place] [address] Performed By: #### 2 4321-2, HSTNT, , 2776-07 #### [facility] CLIA [id number] [address] [place] [address] [place] Differential cell count method Nom (Bld) Auto Normal [facility] Comment on above: Order Comment: Speci men Type: BLOOD SPECIMEN Ordering Facility: [facility] Address: [address] [place] [address] Performed By: #### 2 4321-2, HSTNT, , 2776-07 #### [facility] CLIA [id number] [address] [place] [address] [place] Eosinophils (Bld) [#/Vol] 0.18 10*3/uL Normal <0.46 [facility] Comment on above: Order Comment: Speci men Type: BLOOD SPECIMEN Ordering Facility: [facility] Address: [address] [place] [address] Performed By: #### 2 4321-2, HSTNT, , 2776-07 #### [facility] CLIA [id number] [address] [place] [address] [place] Eosinophils/100 WBC (Bld) 3.7 % Normal [facility] Comment on above: Order Comment: Speci men Type: BLOOD SPECIMEN Ordering Facility: [facility] Address: [address] [place] [address] Performed By: #### 2 4321-2, HSTNT, , 2776-07 #### [facility] CLIA [id number] [address] [place] [address] [place] Erythrocyte distribution width (RBC) [Ratio] 13.9 % Normal 11.5-15.0 [facility] Comment on above: Order Comment: Speci men Type: BLOOD SPECIMEN Ordering Facility: [facility] Address: [address] [place] [address] Performed By: #### 2 4321-2, HSTNT, , 2776-07 #### [facility] CLIA [id number] [address] [place] [address] [place] Hematocrit (Bld) [Volume fraction] 39.0 % Normal 36.0-46.0 [facility] Comment on above: Order Comment: Speci men Type: BLOOD SPECIMEN Ordering Facility: [facility] Address: [address] [place] [address] Performed By: #### 2 4321-2, HSTNT, , 2776-07 #### [facility] CLIA [id number] [address] [place] [address] [place] Hemoglobin (Bld) [Mass/Vol] 13.4 g/dL Normal 11.5-15.5 [facility] Comment on above: Order Comment: Speci men Type: BLOOD SPECIMEN Ordering Facility: [facility] Address: [address] [place] [address] Performed By: #### 2 4321-2, HSTNT, , 2776- #### [facility] CLIA [id number] [address] [place] [address] [place] Immature granulocytes (Bld) [#/Vol] 10*3/uL Normal <0.10 [facility] Comment on above: Order Comment: Speci men Type: BLOOD SPECIMEN Ordering Facility: [facility] Address: [address] [place] [address] Performed By: #### 2 4321-2, HSTNT, , 2776-07 #### [facility] CLIA [id number] [address] [place] [address] [place] Immature granulocytes/100 WBC (Bld) 0.4 % Normal [facility] Comment on above: Order Comment: Speci men Type: BLOOD SPECIMEN Ordering Facility: [facility] Address: [address] [place] [address] Performed By: #### 2 4321-2, HSTNT, , 2776-07 #### [facility] CLIA [id number] [address] [place] [address] [place] Lymphocytes (Bld) [#/Vol] 2.00 10*3/uL Normal 1.00-4.00 [facility] Comment on above: Order Comment: Speci men Type: BLOOD SPECIMEN Ordering Facility: [facility] Address: [address] [place] [address] Performed By: #### 2 4321-2, HSTNT, , 2776-07 #### [facility] CLIA [id number] [address] [place] [address] [place] Lymphocytes/100 WBC (Bld) 41.3 % Normal [facility] Comment on above: Order Comment: Speci men Type: BLOOD SPECIMEN Ordering Facility: [facility] Address: [address] [place] [address] Performed By: #### 2 4321-2, HSTNT, , 2776-07 #### [facility] CLIA [id number] [address] [place] [address] [place] MCH (RBC) [Entitic mass] 32.5 pg Normal 26.0-34.0 [facility] Comment on above: Order Comment: Speci men Type: BLOOD SPECIMEN Ordering Facility: [facility] Address: [address] [place] [address] Performed By: #### 2 4321-2, HSTNT, , 2776-07 #### [facility] CLIA [id number] [address] [place] [address] [place] MCHC (RBC) [Mass/Vol] 34.4 g/dL Normal 30.5-36.0 [facility] Comment on above: Order Comment: Speci men Type: BLOOD SPECIMEN Ordering Facility: [facility] Address: [address] [place] [address] Performed By: #### 2 4321-2, HSTNT, , 2776-07 #### [facility] CLIA [id number] [address] [place] [address] [place] MCV (RBC) [Entitic vol] 94.7 fL Normal 80.0-100.0 [facility] Comment on above: Order Comment: Speci men Type: BLOOD SPECIMEN Ordering Facility: [facility] Address: [address] [place] [address] Performed By: #### 2 4321-2, HSTNT, , 2776-07 #### [facility] CLIA [id number] [address] [id number] [address] [place] Monocytes (Bld) [#/Vol] 0.30 10*3/uL Normal <0.87 [facility] Comment on above: Order Comment: Speci men Type: BLOOD SPECIMEN Ordering Facility: [facility] Address: [address] [place] [address] Performed By: #### 2 4321-2, HSTNT, , 2776- #### [facility] CLIA [id number] [address] [place] [address] [place] Monocytes/100 WBC (Bld) 6.2 % Normal [facility] Comment on above: Order Comment: Speci men Type: BLOOD SPECIMEN Ordering Facility: [facility] Address: [address] [place] [address] Performed By: #### 2 4321-2, HSTNT, , 2776- #### [facility] CLIA [id number] [address] [place] [address] [place] Neutrophils (Bld) [#/Vol] 2.30 10*3/uL Normal 1.45-7.50 [facility] Comment on above: Order Comment: Speci men Type: BLOOD SPECIMEN Ordering Facility: [facility] Address: [address] [place] [address] Performed By: #### 2 4321-2, HSTNT, , 2776-07 #### [facility] CLIA [id number] [address] [place] [address] [place] Neutrophils/100 WBC (Bld) 47.6 % Normal [facility] Comment on above: Order Comment: Speci men Type: BLOOD SPECIMEN Ordering Facility: [facility] Address: [address] [place] [address] Performed By: #### 2 4321-2, HSTNT, , 2776- #### [facility] CLIA [id number] [address] [place] [address] [place] Nucleated RBC (Bld) [#/Vol] 10*3/uL Normal <0.01 [facility] Comment on above: Order Comment: Speci men Type: BLOOD SPECIMEN Ordering Facility: [facility] Address: [address] [place] [address] Performed By: #### 2 4321-2, HSTNT, 89047-4, 2776-1 #### [facility] CLIA [id number] [address] [place] [address] [place] Nucleated RBC/100 WBC (Bld) [Ratio] 0.0 /100 WBC Normal [facility] Comment on above: Order Comment: Speci men Type: BLOOD SPECIMEN Ordering Facility: [facility] Address: [address] [place] [address] Performed By: #### 2 4321-2, HSTNT, , 2776- #### [facility] CLIA [id number] [address] [place] [address] [place] Platelet mean volume (Bld) [Entitic vol] 10.2 fL Normal 9.0-12.7 [facility] Comment on above: Order Comment: Speci men Type: BLOOD SPECIMEN Ordering Facility: [facility] Address: [address] [place] [address] Performed By: #### 2 4321-2, HSTNT, , 2776- #### [facility] CLIA [id number] [address] [place] [address] [place] Platelets (Bld) [#/Vol] 169 10*3/uL Normal 150-400 [facility] Comment on above: Order Comment: Speci men Type: BLOOD SPECIMEN Ordering Facility: [facility] Address: [address] [place] [address] Performed By: #### 2 4321-2, HSTNT, , 2776- #### [facility] CLIA [id number] [address] [id number] [address] [place] RBC (Bld) [#/Vol] 4.12 10*6/uL Normal 3.90-5.20 [facility] Comment on above: Order Comment: Speci men Type: BLOOD SPECIMEN Ordering Facility: [facility] Address: [address] [place] [address] Performed By: #### 2 4321-2, HSTNT, , 7- #### [facility] CLIA [id number] [address] [place] [address] [place] WBC (Bld) [#/Vol] 4.84 10*3/uL Normal 3.70-11.00 [facility] Comment on above: Order Comment: Speci men Type: BLOOD SPECIMEN Ordering Facility: [facility] Address: [address] [place] [address] Performed By: #### 2 4321-2, HSTNT, , 2776-07 #### [facility] CLIA [id number] [address] [place] [address] [place] [facility] CBC W AUTO DIFF BLDon Basophils/100 WBC (Bld) 0.8 % [facility] BASOPHILS # BLD AUTO 0.04 [facility] [place] DIFFERENTIAL METHOD BLD Auto [facility] EOSINOPHIL # BLD AUTO 0.18 [facility] [place] LYMPHOCYTES # BLD AUTO 2 [facility] MONOCYTES # BLD AUTO 0.3 [facility] [place] NEUTROPHILS # BLD AUTO 2.3 [facility] NRBC # BLD AUTO <0.01 [facility] [place] NRBC/100 WBC BLD-RTO 0 /100 WBC [facility] PLATELET # BLD AUTO 169 [facility] PMV BLD AUTO 10.2 fL 9.0 - 12.7 fL [facility] WBC # BLD AUTO 4.84 [facility] Eosinophils/100 WBC (Bld) 3.7 % [facility] Erythrocyte distribution width (RBC) [Ratio] 13.9 % 11.5 - 15.0 % [facility] Hematocrit (Bld) [Volume fraction] 39 % 36.0 - 46.0 % [facility] Hemoglobin (Bld) [Mass/Vol] 13.4 g/dL 11.5 - 15.5 g/dL [facility] IMM GRANULOCYTES # BLD AUTO <0.03 NINF [facility] IMM GRANULOCYTES/LEUK NFR BLD AUTO 0.4 % [facility] Lymphocytes/100 WBC (Bld) 41.3 % [facility] MCH (RBC) [Entitic mass] 32.5 pg 26.0 - 34.0 pg [facility] MCHC (RBC) [Mass/Vol] 34.4 g/dL 30.5 - 36.0 g/dL [facility] MCV (RBC) [Entitic vol] 94.7 fL 80.0 - 100.0 fL [facility] Monocytes/100 WBC (Bld) 6.2 % [facility] Neutrophils/100 WBC (Bld) 47.6 % [facility] RBC (Bld) [#/Vol] 4.12 10*6/uL 3.90 - 5.2 0 m/uL [facility] Specimen Type: BLOOD SPECIMEN Ordering Facility: [facility] Address: [address] [place] [address] Original Ordering Provider: [facility]ATAR[facility] CONFIRM BLOOD TYPEon 025 ABO B Normal [facility] Comment on above: Order Comment: Speci men Type: BLOOD SPECIMEN Ordering Facility: [facility] Address: [address] [place] [address] Performed By: #### 2 4321-2, HSTNT, , 2776-07 #### [facility] CLIA [id number] [address] [place] [address] [place] Rh Nom (Bld) Positive Normal [facility] Comment on above: Order Comment: Speci men Type: BLOOD SPECIMEN Ordering Facility: [facility] Address: [address] [place] [address] Performed By: #### 2 4321-2, HSTNT, , 2776-07 #### [facility] CLIA [id number] [address] [place] [address] [place] ABO group Nom (Bld) B [facility] Rh Nom (Bld) Positive [facility] Comprehensive metabolic 2000 panelon 07-23-2024 Albumin [Mass/Vol] 4.2 g/dL Normal 3.9-4.9 [facility] Comment on above: Order Comment: Speci men Type: BLOOD SPECIMEN Ordering Facility: [facility] Address: [address] [place] [address] Performed By: #### 2 4321-2, HSTNT, , 2776-07 #### [facility] CLIA [id number] [address] [place] [address] [place] ALP [Catalytic activity/Vol] 111 U/L Normal 34-123 [facility] Comment on above: Order Comment: Speci men Type: BLOOD SPECIMEN Ordering Facility: [facility] Address: [address] [place] [address] Performed By: #### 2 4321-2, HSTNT, , 2776-07 #### [facility] CLIA [id number] [address] [place] [address] [place] ALT [Catalytic activity/Vol] 26 U/L Normal 7-38 [facility] Comment on above: Order Comment: Speci men Type: BLOOD SPECIMEN Ordering Facility: [facility] Address: [address] [place] [address] Performed By: #### 2 4321-2, HSTNT, , 2776-07 #### [facility] CLIA [id number] [address] [place], [place] [address] [place] Anion gap [Moles/Vol] 10 mmol/L Normal 8-15 [facility] Comment on above: Order Comment: Speci men Type: BLOOD SPECIMEN Ordering Facility: [facility] Address: [address] [place] [address] Performed By: #### 2 4321-2, HSTNT, , 2776-07 #### [facility] CLIA [id number] [address] [place] [address] [place] AST [Catalytic activity/Vol] 28 U/L Normal 13-35 [facility] Comment on above: Order Comment: Speci men Type: BLOOD SPECIMEN Ordering Facility: [facility] Address: [address] [place] [address] Performed By: #### 2 4321-2, HSTNT, , 2776-07 #### [facility] CLIA [id number] [address] [place], [place] [address] [place] Bilirubin [Mass/Vol] 0.5 mg/dL Normal 0.2-1.3 [facility] Comment on above: Order Comment: Speci men Type: BLOOD SPECIMEN Ordering Facility: [facility] Address: [address] [place] [address] Performed By: #### 2 4321-2, HSTNT, , 2776-07 #### [facility] CLIA [id number] [address] [place] [address] [place] Calcium [Mass/Vol] 9.4 mg/dL Normal 8.5-10.2 [facility] Comment on above: Order Comment: Speci men Type: BLOOD SPECIMEN Ordering Facility: [facility] Address: [address] [place] [address] Performed By: #### 2 4321-2, HSTNT, , 2776-07 #### [facility] CLIA [id number] [address] [place] [address] [place] Chloride [Moles/Vol] 108 mmol/L High 98-107 [facility] Comment on above: Order Comment: Speci men Type: BLOOD SPECIMEN Ordering Facility: [facility] Address: [address] [place] [address] Performed By: #### 2 4321-2, HSTNT, , 2776-07 #### [facility] CLIA [id number] [address] [place] [address] [place] CO2 [Moles/Vol] 23 mmol/L Normal 22-30 [facility] Comment on above: Order Comment: Speci men Type: BLOOD SPECIMEN Ordering Facility: [facility] Address: [address] [place] [address] Performed By: #### 2 4321-2, HSTNT, , 2776-07 #### [facility] CLIA [id number] [address] [place] [address] [place] Creatinine [Mass/Vol] 0.99 mg/dL High 0.58-0.96 [facility] Comment on above: Order Comment: Speci men Type: BLOOD SPECIMEN Ordering Facility: [facility] Address: [address] [place] [address] Performed By: #### 2 4321-2, HSTNT, , 2776-07 #### [facility] CLIA [id number] [address] [place] [address] [place] Creatinine and Glomerular filtration rate.predicted panel (S/P/Bld) 61 mL/min/1.73m??? Normal >=60 [facility] Comment on above: Order Comment: Speci men Type: BLOOD SPECIMEN Ordering Facility: [facility] Address: [address] [place] [address] Result Comment: Ira mated Glomerular Filtration Rate [...] 4321-2, HSTNT, , 2776-07 #### [facility] CLIA [id number] [address] [place] [address] [place] Glucose [Mass/Vol] 155 mg/dL High 74-99 [facility] Comment on above: Order Comment: Fabiola bliss Type: BLOOD SPECIMEN Ordering Facility: [facility] Address: [address] [place] [address] Result Comment: The [place] [employer] (ADA) provides guidance for [...] Standards of Medical Care in Diabetes 2016, [place] [employer]. Diabetes Care. 2016.39(Suppl 1). Performed By: #### 2 4321-2, HSTNT, , 2776-07 #### [facility] CLIA [id number] [address] [place] [address] [place] Potassium [Moles/Vol] 4.3 mmol/L Normal 3.7-5.1 [facility] Comment on above: Order Comment: Fabiola bliss Type: BLOOD SPECIMEN Ordering Facility: [facility] Address: [address] [place] [address] Performed By: #### 2 4321-2, HSTNT, , 2776-07 #### [facility] CLIA [id number] [address] [place] [address] [place] Protein [Mass/Vol] 6.9 g/dL Normal 6.3-8.0 [facility] Comment on above: Order Comment: Fabiola bliss Type: BLOOD SPECIMEN Ordering Facility: [facility] Address: [address] [place] [address] Performed By: #### 2 4321-2, HSTNT, , 2776-07 #### [facility] CLIA [id number] [address] [place] [address] [place] Sodium [Moles/Vol] 141 mmol/L Normal 136-144 [facility] Comment on above: Order Comment: Speci men Type: BLOOD SPECIMEN Ordering Facility: [facility] Address: [address] [place] [address] Performed By: #### 2 4321-2, HSTNT, , 2776-07 #### [facility] CLIA [id number] [address] [place] [address] [place] Urea nitrogen [Mass/Vol] 13 mg/dL Normal 7-21 [facility] Comment on above: Order Comment: Speci men Type: BLOOD SPECIMEN Ordering Facility: [facility] Address: [address] [place] [address] Performed By: #### 2 4321-2, HSTNT, , 2776-07 #### [facility] CLIA [id number] [address] [place] [address] [place] ECG COMPLETEon 07-23-2024 ECG COMPLETE Ventricular Rate : 6 6 BPM Atrial Rate : 66 BPM P-R Interval : 158 ms QRS Duration : 78 ms Q-T Interval : 404 ms QTC Calculation(Bazett) : 423 ms Calculated P [place] : 32 degrees Calculated R [place] : 14 degrees Calculated T [place] : 54 degrees NORMAL SINUS RHYTHM NORMAL ECG Confirmed by MD MCCLENDON HEBA ([id number]) on 07/29/2024 12:16:17 PM NAME : SHEY OBRIEN PID : [id number] : 1950 Gender : Female Race : ORD : [id number] Procedure Date : Jul 23 2024 12:08:10 Edit Date : Jul 29 2024 12:16:18 Diagnosis: NORMAL SINUS RHYTHM NORMAL ECG Confirmed by MD MCCLENDON HEBA ([id number]) on 07/29/2024 12:16:17 PM Test Reason : Location : 119 : A17 A17 Overread By : MD MCCLENDON HEBA Edited By : MD MCCLENDON HEBA Referred By : XAVIER BOYD Acquired by : SADE HA [facility] HISTORY PHYSICALon HISTORY PHYSICAL HNO ID: [id number] Author: JAMIL DELACRUZ PA-C Service: ? Author Type: Physician Director Behavioral Health Type: H&P Filed: 07/23/2024 14:03 Note Text: [...] anticoagulation therap (more content not included)... Normal [facility] PT panel Coag (PPP)on 2024 INR Coag (PPP) [Relative time] 1.1 {INR} Normal 0.9-1.3 [facility] Comment on above: Order Comment: Speci men Type: BLOOD SPECIMEN Ordering Facility: [facility] Address: [address] [place] [address] Result Comment: Francesco min K Antagonist (VKA) Therapeutic Range: INR 2 to 3 (Target INR of 2.5) Note: For patients treated with VKA drugs, such as warfarin, the [employer] 2012 Guideline [...] NUNEZ, et al. Chest 2012, 141:7S-47S Keisha BORJAS et al. [facility] 2017, 70: 252-289 Performed By: #### 2 4321-2, [facility], 88769-6, 2776-07 #### [facility] CLIA [id number] [address] [place], [place] [address] [place] PT Coag (PPP) [Time] 11.4 s Normal 9.7-13.0 [facility] Comment on above: Order Comment: Speci men Type: BLOOD SPECIMEN Ordering Facility: [facility] Address: [address] [place] [address] Performed By: #### 2 4321-2, HSTNT, , 2776-07 #### [facility] CLIA [id number] [address] [place] [address] [place] TYPE AND SCREEN,30 DAYon ABO B Normal [facility] Comment on above: Order Comment: Speci men Type: BLOOD SPECIMEN Ordering Facility: [facility] Address: [address] [place] [address] Performed By: #### 2 4321-2, HSTNT, , 2776-07 #### [facility] CLIA [id number] [address] [place] [address] [place] Rh Nom (Bld) Positive Normal [facility] Comment on above: Order Comment: Speci men Type: BLOOD SPECIMEN Ordering Facility: [facility] Address: [address] [place] [address] Performed By: #### 2 4321-2, HSTNT, , 2776-07 #### [facility] CLIA [id number] [address] [place], [place] [address] [place] XR CHEST 2V [...] soft tissues: Unremarkable. IMPRESSION: Large hiatal hernia. Seed Trucker: PSCCandis Transcribe Date/Time: Jul 24 2024 7:28A Dictated by : JARVIS HUGO MD This examination was interpreted and the report reviewed and electronically signed by: JARVIS HUGO MD on Jul 24 2024 7:30AM EST [id number] Normal [facility] aPTT PPPon 07-23-2024 aPTT Coag (PPP) [Time] 25.5 s Normal 23.0-32.4 [facility] Comment on above: Order Comment: Speci men Type: BLOOD SPECIMEN Ordering Facility: [facility] Address: [address] [place] [address] Performed By: #### 2 4321-2, [facility], 14578-9, 2777-1 #### [facility] CLIA [id number] [address] [place] [address] [place] CNOVon 04-29-2024 CNOV Office Visit (ARNOLDO ) SHEY OBRIEN ([id number]) 1950 F Date Time Provider Department 04/29/24 [...] No Yan Moser 04/29/2024 12:10 PM Signed [facility] Abdominal [facility] - HISTORY AND PHYSICAL SUBJECTIVE: Chief [...] Consents obtained Yan Moser MD General Surgery [facility], Xavier Mayfield MD 04/29/2024 12:10 PM Signed [...] and discussed (more content not included)... Normal [facility] CNPNon 04-22-2024 CNPN Telephone (GENSMN) SHEY OBRIEN ([id number]) 1950 F Date Time Provider Department 04/22/24 ASHLIE CALDERON During your visit today, we recorded the following information about you: Ashlie Calderon 04/22/2024 5:39 PM Signed Spoke with PT she state no prior surgeries Allergies As of Date: 04/22/2024 (Not on File) Date Reviewed: Never Reviewed Problem List As Of Date: 04/22/2024 (None) Encounter Status:Closed by ASHLIE CALDERON on 04/22/24 Normal [facility] Surgical Pathology Reporton 03-26-2024 Surgical Pathology Report [address] [address]- Surgical Pathology Report Collected Date/Time: 03/20/2024 12:52 EDT Pathologist: Ptee Evans MD Received Date/Time: 03/21/2024 08:07 EDT [...] is entirely submitted in one cassette. (DC) DC:[facility] Microscopic Description Microscopic examination performed unless gross only specified. The use of one or more reagents in the above tests is regulated as an analyte specific reagent (ASR). The test or tests are ordered following initial H&E microscopic examination. The performance characteristics were determined by the Laboratory of [facility]. They have not been cleared or approved by the US Food and Drug Administration. The FDA has determined that such clearance or approval is not necessary. These tests are used for clinical purposes. They should not be regarded as investigational or for research. Appropriate positive and negative controls are performed and are acceptable. Normal [facility] Comment on above: Performed By: #### 4 [id number] #### [facility] [address] [place] [address] XR Esophaguson 03-26-2024 XR Esophagus Exam Date/Time: [...] mGy = 15.80 DAP = 464.17 Normal [facility] Main OR Intraoperative Recor don 03-22-2024 Main OR Intraoperative Record Main OR Intraoperative Record IntraOp Document Type FT Summary Primary Physician: Dafne Spears MD Finalized Date/Time: 03/22/24 14:46:15 Pt. Name: KARYNSHEY/Sex: 1950 Female Med Rec #: [id number] Physician: Dafne Spears MD Financial #: [id number] Pt. Type: O Room/Bed: / Admit/Disch: 03/20/24 [...] 3 Case Attendee Mariella JOHNSON, Catalina Ivory RECORD LABEL INTERN, Анна Spears MD, Dafne Torres Role Performed LEGAL CONSULTANT Scrub - Primary Surgeon - Primary Time In 03/20/24 12:44:00 03/20/24 12:44:00 03/20/24 12:44:00 Time Out 03/20/24 12:56:00 03/20/24 12:56:00 03/20/24 12:56:00 Procedure EGD(.) EGD(.) EGD(.) Comments Dr. Spears supervising procedure. Last Modified By: Mynor FORBES, Violette Lopez RN, Essence Pinto RN 03/22/24 14:45:45 03/20/24 12:56:36 03/20/24 12:56:36 Entry 4 Case Attendee Essence Lopez RN Role Performed Intellectual Property Paralegal - Primary Time In 03/20/24 12:44:00 Time [...] Applicable) PreOp Antibiotic No Time Out Catalina oWlff CRNA, Given Participants Dianelys FORBES, Yovanny Ellington [...] and tissue Entry 1 Skin Integrity Intact, [place], Warm, & Skin Abnormality No Dry Outcomes [...] Extended Positioning (more content not included)... Normal [facility] Discharge Instructionson Discharge Instructions Discharge [...] mg Tab) fluticasone nasal (Flonase 0.05 mg/inh [place]) losartan (losartan 25 mg Tab) multivitamin with [...] Unchanged fluticasone nasal (Flonase 0.05 mg/ inh [place]) 2 Sprays Nasal Inhalation Every day Unchanged [...] get better (more content not included)... Normal [facility] Comment on above: Result Comment: Elec tronically Signed By: Kassy Barker.br\Date and Time Signed: 03/20/24 13:08 EDT Inpatient Patient Summaryon 03-20-2024 Inpatient Patient Summary Inpatient Patient Summary [place] [id number] [facility] Clinical Discharge Instructions PERSON INFORMATION Name: SHEY OBRIEN [facility]#:[id number] PHYSICIANS Admitting Physician: Yovanny OLIVO, Dafne Torres [...] (at bedtime). fluticasone nasal (Flonase 0.05 mg/inh [place]) 2 Sprays Nasal Inhalation every day. losartan [...] bedtime) as needed for sleep. Comment: Normal [facility] Main OR PACU I Recordon 03-10 Main OR PACU I Record Main OR PACU I Rec ord PACU Phase I Document Type FT Summary Primary Physician: Dafne Spears MD Finalized Date/Time: 03/20/24 13:37:02 Pt. Name: SHEY OBRIEN./Sex: 1950 Female Med Rec #: [id number] Physician: Dafne Spears MD Financial #: [id number] Pt. Type: O Room/Bed: / Admit/Disch: 03/20/24 [...] By: Kassy Barker I 03/20/24 13:37 Normal [facility] Main OR Preoperative Recordo n 03-20-2024 Main OR Preoperative Record Main OR Preoperative Record Holding Area Document Type FT Summary Primary Physician: Dafne Spears MD Finalized Date/Time: 03/20/24 11:17:32 Pt. Name: KARYNSHEY./Sex: 1950 Female Med Rec #: [id number] Physician: Dafne Spears MD Financial #: [id number] Pt. Type: O Room/Bed: / Admit/Disch: 03/20/24 [...] By: Essence Lopez RN 03/20/24 11:17 Normal [facility] Outpatient Surgery Discharge Instructionon 03-20-2024 Outpatient Surgery Discharge Instruction Outpatient Surgery Discharge Instruction [place] [id number] Patient Discharge Instructions PERSON INFORMATION Name: SHEY OBRIEN Date of : 1950 Current Date: 03/20/2024 12:58:56 PHYSICIANS Admitting Physician: Dafne Spears MD Discharge Diagnosis: KARYN SHEY has been given the following list of [...] to serve you. Thank you for choosing [facility] HERE ARE THE MEDICATION CHANGES [...] (at bedtime). fluticasone nasal (Flonase 0.05 mg/inh [place]) 2 Sprays Nasal Inhalation every day. losartan [...] PATIENT EDUCATION INFORMATION Instructions: Medication Leaflets: Normal [facility] Proceduralon 03-20-2024 Procedural Procedural Patient: SHEY OBRIEN Age: 73 years Sex: Female : 1950 Associated Diagnoses: None Author: Daquan Schuler MD Postoperative Information Postoperative disposition: Postoperative disposition: To PACU. Optimetrix number: Optimetrix number [id number]. Anesthetic utilized: General. Health Status Allergies: Allergic [...] when meets criteria ( To home ). [facility] Procedural Procedural Patient: SHEY OBRIEN Age: 73 years Sex: Female : 1950 Associated Diagnoses: None Author: Fish MD, Daquan D. Preoperative Information Anesthesia Preop Info: Time patient [...] 1 tab, Oral, Daily Flonase 0.05 mg/inh [place]: 2 spray(s), Nasal, Daily, Refill(s) 0, Dry [...] a day (at bedtime) Flonase 0.05 mg/inh [place] 2 spray(s), Nasal, Daily losartan 25 mg [...] All Problems BMI 39.0-39.9,adult / SNOMED CT 195194174 / Confirmed Chronic obstructive pulmonary disease / SNOMED CT 89356186 / Confirmed Dyslipidemia / SNOMED CT 8132570643 / Confirmed Dysphagia / SNOMED CT 88665218 / Confirmed GERD (gastroesophageal reflux disease) / SNOMED CT 946129606 / Confirmed Hiatal hernia / SNOMED CT 113916345 / Confirmed HTN (hypertension) / SNOMED CT 6854503052 / Confirmed Insomnia / SNOMED CT 425885115 / Confirmed Lower extremity edema / SNOMED CT 084165909 / Confirmed Morbid obesity / SNOMED CT 301479099 / Confirmed EDWIN (obstructive sleep apnea) / SNOMED CT 778271244 / Confirmed Screening for malignant neoplasm of colon / SNOMED CT 354936300 / Confirmed Seasonal allergic rhinitis / SNOMED CT 568534056 / Confirmed TIA (transient ischemic attack) / SNOMED CT 415120152 / Confirmed Resolved: At risk for falls / SNOMED CT 220834345 Problem added when Risk for Falls Careplan was initiated. Resolved due to patient discharge. Resolved: Hernia / SNOMED CT 704567450 Resolved: Potential for deficient knowledge of cerebrovascular accident (CVA) / IMO 78891289 problem added based on Stroke Powerplan ordered. Resolved due to patient discharge. Resolved: Sleep apnea / SNOMED CT 781260920, Active Problems (14) BMI 39.0-39.9,adult Chronic obstructive pulmonary disease Dyslipidemia Dysphagia GERD (gastroesophageal reflux disease) Hiatal hernia HTN (hypertension) Insomnia Lower extremity edema Morbid obesity EDWIN (obstructive sleep apnea) Screening for malignant neoplasm of colon Seasonal allergic rhinitis TIA (transient ischemic (more content not included)... Normal [facility] ALL FOLIC ACIDon 03-07-2024 FOLATE 23.60 ng/mL 8.60 - 58.90 ng/mL [facility] ALL THYROID STIM HORMONEon 0 03-07-2024 TSH Qn 2.782 m[IU]/L [facility] No Panel Informationon 03-07 [facility] Ambulatory Visit Summaryon 0 02-26-2024 Ambulatory [...] mg Tab) fluticasone nasal (Flonase 0.05 mg/inh [place]) losartan (losartan 25 mg Tab) multivitamin with [...] Unchanged fluticasone nasal (Flonase 0.05 mg/ inh [place]) 2 Sprays Nasal Inhalation Every day Contact [...] for choosing us for your care. Normal [facility] Gastroenterology Office/Clin ic Noteon 02-26-2024 Gastroenterology [...] to eat proceed with EGD with dilation (brijeshory) Differential includes mechanical causes for dysphagia including Schatzki ring, strictures, cannot rule out malignancy, but also we discussed with large hiatal hernias, esophagus becomes more torturous and therefore evaluation for surgery might be needed if symptoms are that bad 2. Hiatal hernia (K44.9: Diaphragmatic hernia without obstruction or gangrene) reports she had esophagram in [place] no egd in the past declined surgery [...] a day (at bedtime) Flonase 0.05 mg/inh [place], 2 spray(s), Nasal, Daily losartan 25 mg [...] virus vaccine, inactivated 05/03/2022 Recorded SARS-CoV-2 (COVID-19) [id number] 05/03/2022 Recorded influenza virus vaccine, inactivated 04/12/2021 [...] influenza virus vaccine, inactivated 04/16/2015 Recorded Normal [facility] Comment on above: Result Comment: Elec tronically Signed By: Yovanny OLIVO, Dafne Torres\.br\Date and Time Signed: 02/26/24 09:38 EDT IntraOperative Documentson 0 10-19-2023 IntraOperative Documents [id number] .00TIFF [facility] Consenton 10-16-2023 Consent [id number]. 00TIFF Normal [facility] Discharge Instructionson Discharge Instructions [id number]#1. 00TIFF Normal [facility] Main OR Intraoperative Recor don 10-16-2023 Main OR Intraoperative Record IntraOp Document Type FT Summary Primary Physician: Pa WEBB MD Finalized Date/Time: 10/16/23 09:46:21 Pt. Name: SHEY OBRIEN.O.B./Sex: 1950 Female Med Rec #: [id number] Physician: Pa WEBB MD Financial #: [id number] Pt. Type: O Room/Bed: / Admit/Disch: 10/13/23 07:49:21 - 10/13/23 23:59:59 Institution: Case Times FT Entry 1 Patient Times In Room 10/13/23 08:55:00 Out Room 10/13/23 09:16:00 Procedure Times Start 10/13/23 08:59:00 Stop 10/13/23 09:12:00 Anesthesia Times Start 10/13/23 08:55:00 Stop 10/13/23 09:16:00 Time at [place] 10/13/23 09:03:00 Last Modified By: Naresh FORDE, iKmberly Gross 10/13/23 09:16:34 General Comments: 10/16/23 Chart opened for charge review only per Danilo Bennett RN. [place] Case Attendance FT Entry 1 Entry 2 Entry 3 Case Attendee Rajwinder DRAPER, Valentin WEBB MD, Pa Infante RN, Kimberly Gross Role Performed Anesthesiologist Surgeon - Primary Intellectual Property Paralegal - Primary Director Behavioral Health Time In 10/13/23 08:55:00 10/13/23 08:55:00 10/13/23 [...] and tissue Entry 1 Skin Integrity Intact, [place], Warm, and Skin Abnormality No Dry Outcomes [...] Infante RN (more content not included)... Normal [facility] Postoperative Documentson Postoperative Documents [id number]#1. 00TIFF Normal [facility] Reminderson 10-16-2023 Reminders - From: Nhi Aguirre LPN To: GSN - Clinical; Sent: 10/16/2023 10:15:48 EDT Show up: 09/11/2033 07:00:00 EST Subject: colonoscopy recall Due Date/Time: 10/12/2033 07:00:00 EDT Reminder/Recall Patient due for screening colonoscopy 10/12/2033. Normal [facility] Colonoscopy Procedure Report on 10-13-2023 [...] extent examined. Images Procedure images: anal canal [id number]_hd_video_2023_04_ [id number].jpg ileocecalvalve Rec1_hd_video_2023_04_ [id number].jpg appendiceal orificie . Post-Procedure Complications: none. Estimated blood loss: none. Specimens: none. Devices/ implants: none left in place. Impression and Plan Diagnosis: Encounter for screening for malignant neoplasm of rectum (TZC82-RZ Z12.12, Discharge, Medical). Course: Progressing as expected. Recommendations: Repeat colonoscopy:: In 10 years. Follow-up:: if problems/questions. Diet:: Regular diet. Medication resumption:: Continue current medications. Return to activities:: After 24 hours. Education and Follow-up: Counseled: Family. Kary [facility] Comment on above: Other Comment: Samreen dueñas Attachment - attachment storage system not supported [id number] Can be viewed in source systemMissing Attachment - attachment storage system not supported [id number] Can be viewed in source systemMissing Attachment - attachment storage system not supported [id number] Can be viewed in source systemMissing Attachment - attachment storage system not supported [id number] Can be viewed in source systemMissing Attachment - attachment storage system not supported [id number] Can be viewed in source system Consent for Treatmenton 04-0 Consent for Treatment [id number]#1.0 0TIFF Normal [facility] Discharge Instructionson Discharge Instructions SHEY OBRIEN :1950 Visit Date:10/13/2023 Inpatient Discharge Instructions Your Care Team Admitting Physician - Pa WEBB MD Referring Physician - TRACEY OLIVO, Pa Vivas Reason for Your Visit SCREENING Your Diagnosis Encounter for colorectal cancer screening Encounter for screening for malignant neoplasm of rectum This Is Your Medications List aspirin (aspirin 81 mg Oral EC Tab) atorvastatin (atorvastatin 40 mg Tab) cholecalciferol (Vitamin D3 1000 intl units (25 mcg) Tab) famotidine (famotidine 40 mg Tab) fluticasone nasal (Flonase 0.05 mg/inh [place]) losartan (losartan 25 mg Tab) multivitamin with [...] WEBB When: Only if needed Where: [address], [address] [place] [phone] [facility] (1) Medications What How Much When Instructions [...] Unchanged fluticasone nasal (Flonase 0.05 mg/ inh [place]) 2 Sprays Nasal Inhalation Every day Unchanged [...] as instru (more content not included)... Normal [facility] Comment on above: Result Comment: Elec tronically Signed By: Marcy FORDE, Mariaelena\.br\Date and Time Signed: 10/13/23 09:33 EDT Inpatient Patient Summaryon 10-13-2023 Inpatient Patient Summary [place] [id number] [facility] Clinical Discharge Instructions PERSON INFORMATION Name: SHEY OBRIEN [facility]#:[id number] PHYSICIANS Admitting Physician: Pa WEBB MD Attending Physician: Pa WEBB MD PCP: LATRELL JACK MD Discharge Diagnosis: Encounter for colorectal cancer screening; Encounter for screening for malignant neoplasm of rectum Comment: PATIENT EDUCATION INFORMATION Instructions: Medication Leaflets: Follow up: With: Address: When: Pa WEBB [facility], [address], [place] [address] Business (1) , only if needed MEDICATION [...] (at bedtime). fluticasone nasal (Flonase 0.05 mg/inh [place]) 2 Sprays Nasal Inhalation every day. losartan [...] bedtime) as needed for sleep. Comment: Normal [facility] Main OR PACU I Recordon Main OR PACU I Record PACU Phase I Docum ent Type FT Summary Primary Physician: Pa WEBB MD Finalized Date/Time: 10/13/23 09:54:27 Pt. Name: SHEY OBRIEN/Sex: 1950 Female Med Rec #: [id number] Physician: Pa WEBB MD Financial #: [id number] Pt. Type: O Room/Bed: / Admit/Disch: 10/13/23 [...] By: Mariaelena Vidal RN 10/13/23 09:54 Normal [facility] Main OR Preoperative Recordo n 10-13-2023 Main OR Preoperative Record Holding Area Document Type FT Summary Primary Physician: Pa WEBB MD Finalized Date/Time: 10/13/23 08:06:06 Pt. Name: SHEY OBRIEN/Sex: 1950 Female Med Rec #: [id number] Physician: Pa WEBB MD Financial #: [id number] Pt. Type: O Room/Bed: / Admit/Disch: 10/13/23 [...] Signed By: Trip Domínguez 10/13/23 08:06 Normal [facility] Monitor Recordon 10-13-2023 Monitor Record [id number]. 00TIFF Normal [facility] Monitor Record [id number]. 00TIFF [facility] Outpatient Surgery Discharge Instructionon 10-13-2023 Outpatient Surgery Discharge Instruction [place] [id number] Patient Discharge Instructions PERSON INFORMATION Name: SHEY [...] Follow up: With: Address: When: [address], [address], [place] [phone] Business (1) , only if needed Pharmacy [...] to serve you. Thank you for choosing [facility] HERE ARE THE MEDICATION CHANGES [...] (at bedtime). fluticasone nasal (Flonase 0.05 mg/inh [place]) 2 Sprays Nasal Inhalation every day. losartan [...] sleep. PATIENT EDUCATION INFORMATION Instructions: Medication Leaflets: [facility] Patient Education - Texton 0 10-13-2023 Patient [...] or gets worse throughout the day. Normal [facility] Progress Note-Physicianon Progress Note-Physician Patient: SHEY OBRIEN Age: 73 years Sex: Female : 1950 Associated Diagnoses: None Author: Shaji Bethea Jr., DO Postoperative Information Postoperative disposition: Postoperative disposition: Home. Optimetrix number: Optimetrix number [id number]. Anesthetic utilized: General. Physical Examination Vital Signs [...] Surgery Unit, and To home ). Normal [facility] Comment on above: Result [...] m2 Documented Medications Documented Flonase 0.05 mg/inh [place]: 2 spray(s), Nasal, Daily, Refill(s) 0, Dry [...] a day (at bedtime) Flonase 0.05 mg/inh [place] 2 spray(s), Nasal, Daily losartan 25 mg [...] All Problems BMI 39.0-39.9,adult / SNOMED CT 742215780 / Confirmed Chronic obstructive pulmonary disease / SNOMED CT 00088736 / Confirmed Dyslipidemia / SNOMED CT 7296569010 / Confirmed GERD (gastroesophageal reflux disease) / SNOMED CT 116314336 / Confirmed Hiatal hernia / SNOMED CT 190912178 / Confirmed HTN (hypertension) / SNOMED CT 2294002687 / Confirmed Insomnia / SNOMED CT 527981535 / Confirmed Lower extremity edema / SNOMED CT 745934044 / Confirmed Morbid obesity / SNOMED CT 963857530 / Confirmed EDWIN (obstructive sleep apnea) / SNOMED CT 277052750 / Confirmed Screening for malignant neoplasm of colon / SNOMED CT 168667513 / Confirmed Seasonal allergic rhinitis / SNOMED CT 458679671 / Confirmed TIA (transient ischemic attack) / SNOMED CT 524325917 / Confirmed Resolved: At risk for falls / SNOMED CT 757761991 Problem added when Risk for Falls Careplan was initiated. Resolved due to patient discharge. Resolved: Hernia / SNOMED CT 054417391 Resolved: Potential for deficient knowledge of cerebrovascular accident (CVA) / IMO 56896338 problem added based on Stroke Powerplan ordered. Resolved due to patient discharge. Resolved: Sleep apnea / SNOMED CT [id number] Histories Past Medical History: Resolved Hernia (768890733): Resolved. Sleep apnea (291637418): Resolved. Procedure history: ORIF - Open reduction of fracture of ankle with internal fixation ([id number]). Meniscal repair ([id number]). Tonsillectomy (138072937). Hand tendon repaired (151174858). Social History Social & Psychosocial Habits Alcohol 09/12/2023 Frequency: 1-2 times per year Substance Abuse Comment: denies - 03/03/2021 07:19 - Terry FORDE, Carolyn Gil 09/12/2023 Risk Assessment: Denies Substance Abuse Tobacco 09/12/2023 Tobacco Use: Former smoker, quit more Smokeless tobacco use: Never Type: Cigarettes . Physical Examination Vital Signs 10/13/2023 8:03 EDT Temperature Temporal Artery 36.3 DegC (more content not included)... Normal [facility] Comment on above: Result Comment: Elec tronically Signed By: Shaji Bethea Jr., DO\.br\Date and Time Signed: 10/13/23 08:04 EDT Consent for Procedure/Surger yon 09-13-2023 Consent for Procedure/Surgery [id number]#[id number] TIFF Kary Jernigan [facility] Ambulatory Visit Summaryon 0 09-12-2023 Ambulatory [...] mg Tab) fluticasone nasal (Flonase 0.05 mg/inh [place]) losartan (losartan 25 mg Tab) multivitamin with [...] Unchanged fluticasone nasal (Flonase 0.05 mg/ inh [place]) 2 Sprays Nasal Inhalation Every day Contact [...] you for choosing us for your care. [facility] Provider Letteron 08-25-2023 Provider Letter August 25, 2023 SHEY OBRIEN [address] [place] [id number] : 1950 Dear Ms. Obrien, We have been trying to reach you with no success regarding a referral from Dr Jack. It is important that you return our call upon receiving this letter so that we can set up an appointment for you in either our [place] or [place] office. Also, at the time of your call, please provide us with your current demographic and insurance information. Thank you for your prompt attention to this matter. Sincerely, [facility] General Surgery [phone] [facility] Physician Referralon 024 Physician Referral [id number] 20 [id number]#[id number] 0TIFF [facility] CT LUNG CANCER SCREENINGon 0 1-19-2023 CT LUNG CANCER SCREENING EXAMINATION: CT LUNG [...] MEHNAZ SANTIAGO Date: 2022-07-28 15:28 Normal [facility] BNPon 02-22-2022 Natriuretic peptide B (Bld) [Mass/Vol] 108.0 pg/mL Normal <=900.0 [facility] Comment on above: Performed By: #### B MP, BNP, HSTROPN ####[facility] [address] [place] [id number]. Felisa Trujillo CBC AUTO DIFFon 02-22-2022 BASO # 0.0 103/ul Normal 0.0-0.1 [facility] Comment on above: Performed By: #### C BC ####[facility] H[address] [place] [id number] Trujillo Basophils/100 WBC (Bld) 0.7 % Normal 0.2-2.0 [facility] Comment on above: Performed By: #### C BC ####[facility] T[address]knm[address]wp[address] [place] [address]Dr. Felisa Trujillo EO # 0.1 103/ul Normal 0.0-0.7 [facility] Comment on above: Performed By: #### C BC ####[facility] X[address]xzh[address]arm[address] [place] [address]Dr. Felisa Trujillo Eosinophils/100 WBC (Bld) 1.4 % Normal 0.9-7.0 [facility] Comment on above: Performed By: #### C BC ####[facility] Gz[address] [place], [place] [address]Dr. Felisa Trujillo Erythrocyte distribution width (RBC) [Ratio] 13.2 % Normal 11.0-15.0 [facility] Comment on above: Performed By: #### C BC ####[facility] O[address] [place], [place] [address]Dr. Felisa Trujillo Hematocrit (Bld) [Volume fraction] 36.6 % Normal 36.0-48.0 [facility] Comment on above: Performed By: #### C BC ####[facility] [address] [place], [place] [address]Dr. Felisa Trujillo Hemoglobin (Bld) [Mass/Vol] 12.7 g/dL Normal 12.0-16.0 [facility] Comment on above: Performed By: #### C BC ####[facility] [address] [place], [place] [address]Dr. Felisa Trujillo IG # 0.01 10e3/ul Normal 0.00-0.03 [facility] Comment on above: Performed By: #### C BC ####[facility] Saxwnkssol[address] [place], [place] [address]Dr. Felisa Trujillo IG % 0.2 % Normal 0.0-0.5 [facility] Comment on above: Performed By: #### C BC ####[facility] Pdyz[address]jx[address] [place], [place] [address]Dr. Felisa Trujillo LYMPH # 1.0 103/ul Critically low 1.2-3.8 [facility] Comment on above: Performed By: #### C BC ####[facility] [address]ip[address]ib[address] [place] [address]Dr. Felisa Trujillo Lymphocytes/100 WBC (Bld) 22.3 % Normal 20.5-60.0 [facility] Comment on above: Performed By: #### C BC ####[facility] Wrroliiqlb[address] [place] [address]Dr. Felisa Trujillo MANUAL DIFF REQ NO Normal [facility] Comment on above: Performed By: #### C BC ####[facility] Jmolhcxrrn026[address] [place] [address]Dr. Felisa Ronnie MCH (RBC) [Entitic mass] 31.8 pg Normal 26.7-34.0 [facility] Comment on above: Performed By: #### C BC ####[facility] Ldbv[address]ls[address] [place], [place] [address]Dr. Felisa Trujillo MCHC (RBC) [Mass/Vol] 34.7 g/dL Normal 29.9-35.2 [facility] Comment on above: Performed By: #### C BC ####[facility] Qywcmapybj9[address] [place] [address]Dr. Felisa Trujillo MCV (RBC) [Entitic vol] 91.7 fL Normal 81.0-99.0 [facility] Comment on above: Performed By: #### C BC ####[facility] Urbt[address] [place], [place] [address]Dr. Felisa Ronnie MONO # 0.5 103/ul Normal 0.3-0.8 [facility] Comment on above: Performed By: #### C BC ####[facility] [address]ms[address] [place], [place] [address]Dr. Felisa Ronnie Monocytes/100 WBC (Bld) 11.7 % Normal 1.7-12.0 [facility] Comment on above: Performed By: #### C BC ####[facility] A[address]um[address] [place], [place] [address]Dr. Felisa Trujillo NEUT # 2.7 103/ul Normal 1.4-6.5 [facility] Comment on above: Performed By: #### C BC ####[facility] [address] [place], [place] [address]On. Felisa Trujillo Neutrophils/100 WBC (Bld) 63.7 % Normal 43.0-75.0 [facility] Comment on above: Performed By: #### C BC ####[facility] Lifwzvhkjz024[address] [place], [place] [address]Up. Felisa Trujillo Platelet mean volume (Bld) [Entitic vol] 10.2 fL Normal 9.5-13.5 [facility] Comment on above: Performed By: #### C BC ####[facility] S[address] [place], [place] [address]Oy. Felisa Trujillo PLT 149 103/ul Critically low 150-450 [facility] Comment on above: Performed By: #### C BC ####[facility] Kjrtrncotp9461 [place], [place] [address]Zs. Felisa Trujillo RBC 3.99 106/ul Critically low 4.20-5.40 [facility] Comment on above: Performed By: #### C BC ####[facility] W[address]le[address]uqyg[address] [place], [place] [address]Ue. Felisa Trujillo WBC 4.3 103/ul Normal 4.0-11.0 [facility] Comment on above: Performed By: #### C BC ####[facility] [address]ctf[address]wi[address] [place], [place] [address]Pq. Felisa Trujillo Covid-19 PCR (CVDTB)on 02-07 SARS-CoV-2 (COVID-19) RNA DUGLAS+probe Ql (Unsp spec) Detected Critically abnormal NOT DETECTED [facility] Comment on above: Result Comment: This test is not yet approved or cleared by the [place] FDA. When there are no FDA-approved or cleared tests available, and other criteria are met, FDA can make tests available under an emergency access mechanism called an Emergency Use Authorization (EUA). The EUA for this test is supported by the Pricing Supervisor of Health and Human Service's declaration [...] be used). Performed By: #### C VDTBH ####[facility] [address] [place] [address]Dr. Felisa Trujillo PROF CHEM 8 (BAS METB)on Anion gap [Moles/Vol] 14.9 mmol/L Normal [facility] Comment on above: Performed By: #### B MP, BNP, HSTROPN ####[facility] [address] [place] [address]Dr. Felisa Trujillo Calcium [Mass/Vol] 8.9 mg/dL Normal 8.5-10.1 [facility] Comment on above: Performed By: #### B MP, BNP, HSTROPN ####[facility] [address] [place], [place] [address]Dr. Felisa Trujillo Chloride [Moles/Vol] 104 mmol/L Normal 98-107 [facility] Comment on above: Performed By: #### B MP, BNP, HSTROPN ####[facility] S[address] [place], [place] [address]Dr. Felisa Trujillo CO2 [Moles/Vol] 24.0 mmol/L Normal 21.0-32.0 [facility] Comment on above: Performed By: #### B MP, BNP, HSTROPN ####[facility] Aj[address] [place], [place] [address]Dr. Felisa Trujillo Creatinine [Mass/Vol] 0.98 mg/dL Normal 0.55-1.02 [facility] Comment on above: Performed By: #### B MP, BNP, HSTROPN ####[facility] [address] [place], [place] [address]Dr. Felisa Trujillo EGFR-AF SWISS >60 Normal >=60 [facility] Comment on above: Performed By: #### B MP, BNP, HSTROPN ####[facility] [address] [place], [place] [address]Dr. Felisa Trujillo EGFR-NON AF SWISS 56 mL/min/1.73m2 Critically low >=60 [facility] Comment on above: Performed By: #### B MP, BNP, HSTROPN ####[facility] [address] [place] [address]Dr. Felisa Trujillo Glucose [Mass/Vol] 136 mg/dL Critically high 74-106 [facility] Comment on above: Performed By: #### B MP, BNP, HSTROPN ####[facility] [address] [place] [address]Dr. Felisa Trujillo Potassium [Moles/Vol] 3.9 mmol/L Normal 3.5-5.1 [facility] Comment on above: Performed By: #### B MP, BNP, HSTROPN ####[facility] [address] [place] [address]Dr. Felisa Trujillo Sodium [Moles/Vol] 139 mmol/L Normal 136-145 [facility] Comment on above: Performed By: #### B MP, BNP, HSTROPN ####[facility] [address] [place] [address]Dr. Felisa Trujillo Urea nitrogen [Mass/Vol] 14.0 mg/dL Normal 7.0-18.0 [facility] Comment on above: Performed By: #### B MP, BNP, HSTROPN ####[facility] [address] [place] [address]Dr. Felisa Trujillo Urea nitrogen/Creatinine [Mass ratio] 14.3 mg/mg Normal [facility] Comment on above: Performed By: #### B MP, BNP, HSTROPN ####[facility] [address] [place] [address]Dr. Felisa Trujillo TROPONIN, HIGH SENSITIVITYon 02-22-2022 HSTROP 5.9 pg/mL Normal 4.0-51.3 [facility] Comment on above: Result Comment: CUT- OFF POINTS HAVE BEEN ESTABLISHED BASED ON THE FOURTH UNIVERSAL DEFINITIONS OF MYOCARDIAL INFARCTION. THE UPPER REFERENCE LIMIT (URL) OF TROPONIN, DEFINED THE 99TH PERCENTILE OF cTnI DISTRIBUTION IN A REFERENCE POPULATION, HAS BEEN CONFIRMED THE DECISION THRESHOLD FOR ND DIAGNOSIS. Performed By: #### B MP, BNP, HSTROPN ####[facility] [address] [place], [place] [address]LbMichelle Trujillo XR CHEST 1 Von 02-22-2022 XR [...] MEHNAZ SANTIAGO Date: 2022-02-22 13:30 Normal [facility] MAMM SCREEN 3D RONALD CADon 11-11-2021 MG MAMM SCREEN 3D RONALD CAD Patient: SHEY OBRIEN Exam Date: 11/11/2021 : 1950 Gender:F Ordering : DR LATRELL JACK . Admission #: [id number] Family : Order #: [id number] CLICK HERE TO VIEW EXAM RADIOLOGY REPORT PROCEDURE: MAMMOGRAM SCREENING 3D BILATERAL CAD COMPARISON: MAMM SCREEN 3D RONALD CAD, 11/05/2020. INDICATIONS: Screening mammography Calculator Name NCI Breast Cancer Risk Assessment Tool 5 Year Breast Cancer Risk 1.90% Lifetime Breast Cancer Risk 5.60% Personal Breast Cancer No Personal Ovarian Cancer No Treatments None Family Cancers Father with lung cancer at age 45. LOCATION: [facility] BREAST COMPOSITION: Almost entirely fatty. [...] MD on 11/11/2021 at 13:04 Normal [facility] BNPon 11-02-2021 Natriuretic peptide B (Bld) [Mass/Vol] 42.0 pg/mL Normal <=900.0 [facility] Comment on above: Performed By: #### H STROPN, CMP, BNP #### [facility] [address] [place] [address] Dr. Felisa Trujillo CBC AUTO DIFFon 11-02-2021 BASO # 0.1 103/ul Normal 0.0-0.1 [facility] Comment on above: Performed By: #### C BC #### [facility] [address] [place] [address] Dr. Felisa Trujillo Basophils/100 WBC (Bld) 0.8 % Normal 0.2-2.0 [facility] Comment on above: Performed By: #### C BC #### [facility] [address] [place] [address] Dr. Felisa Trujillo EO # 0.3 103/ul Normal 0.0-0.7 [facility] Comment on above: Performed By: #### C BC #### [facility] [address] [place] [address] Dr. Felisa Trujillo Eosinophils/100 WBC (Bld) 3.9 % Normal 0.9-7.0 [facility] Comment on above: Performed By: #### C BC #### [facility] [address] [place] [address] Dr. Felisa Trujillo Erythrocyte distribution width (RBC) [Ratio] 12.7 % Normal 11.0-15.0 [facility] Comment on above: Performed By: #### C BC #### [facility] [address] [place] [address] Dr. Felisa Trujillo Hematocrit (Bld) [Volume fraction] 40.2 % Normal 36.0-48.0 [facility] Comment on above: Performed By: #### C BC #### [facility] [address] [place] [address] Dr. Felisa Trujillo Hemoglobin (Bld) [Mass/Vol] 13.6 g/dL Normal 12.0-16.0 [facility] Comment on above: Performed By: #### C BC #### [facility] [address] [place] [address] Dr. Felisa Trujillo IG # 0.02 10e3/ul Normal 0.00-0.03 [facility] Comment on above: Performed By: #### C BC #### [facility] [address] [place] [address] Dr. Felisa Trujillo IG % 0.3 % Normal 0.0-0.5 [facility] Comment on above: Performed By: #### C BC #### [facility] [address] [place] [address] Dr. Felisa Trujillo LYMPH # 1.9 103/ul Normal 1.2-3.8 [facility] Comment on above: Performed By: #### C BC #### [facility] [address] [place] [address] Dr. Felisa Trujillo Lymphocytes/100 WBC (Bld) 30.0 % Normal 20.5-60.0 [facility] Comment on above: Performed By: #### C BC #### [facility] [address] [place] [address] Dr. Felisa Trujillo MANUAL DIFF REQ NO Normal [facility] Comment on above: Performed By: #### C BC #### [facility] [address] [place] [address] Dr. Felisa Trujillo MCH (RBC) [Entitic mass] 31.5 pg Normal 26.7-34.0 [facility] Comment on above: Performed By: #### C BC #### [facility] [address] [place] [address] Dr. Felisa Trujillo MCHC (RBC) [Mass/Vol] 33.8 g/dL Normal 29.9-35.2 [facility] Comment on above: Performed By: #### C BC #### [facility] [address] [place] [address] Dr. Felisa Trujillo MCV (RBC) [Entitic vol] 93.1 fL Normal 81.0-99.0 [facility] Comment on above: Performed By: #### C BC #### [facility] [address] [place] [address] Dr. Felisa Trujillo MONO # 0.6 103/ul Normal 0.3-0.8 [facility] Comment on above: Performed By: #### C BC #### [facility] [address] [place] [address] Dr. Felisa Trujillo Monocytes/100 WBC (Bld) 8.5 % Normal 1.7-12.0 [facility] Comment on above: Performed By: #### C BC #### [facility] [address] [place] [address] Dr. Felisa Trujillo NEUT # 3.7 103/ul Normal 1.4-6.5 [facility] Comment on above: Performed By: #### C BC #### [facility] [address] [place] [address] Dr. Felisa Trujillo Neutrophils/100 WBC (Bld) 56.5 % Normal 43.0-75.0 [facility] Comment on above: Performed By: #### C BC #### [facility] [address] [place] [address] Dr. Felisa Trujillo Platelet mean volume (Bld) [Entitic vol] 9.9 fL Normal 9.5-13.5 [facility] Comment on above: Performed By: #### C BC #### [facility] [address] [place] [address] Dr. Felisa Trujillo PLT 193 103/ul Normal 150-450 [facility] Comment on above: Performed By: #### C BC #### [facility] [address] [place] [address] Dr. Felisa Trujillo RBC 4.32 106/ul Normal 4.20-5.40 [facility] Comment on above: Performed By: #### C BC #### [facility] [address] [place] [address] Dr. Felisa Trujillo WBC 6.5 103/ul Normal 4.0-11.0 [facility] Comment on above: Performed By: #### C BC #### [facility] [address] [place] [address] Dr. Felisa Trujillo Covid-19 PCR (CVDTBH)on 10-09 SARS-CoV-2 (COVID-19) RNA DUGLAS+probe Ql (Unsp spec) Not detected Normal NOT DETECTED [facility] Comment on above: Result Comment: [...] for this test is supported by the [place] of Health and Human Service's declaration that [...] used). Performed By: #### C VDTBH #### [facility] [address] [address] [address] Felisa Trujillo LACTATE/LACTIC ACIDon 2021 Lactate [Moles/Vol] 1.0 mmol/L Normal 0.4-2.[address] [facility] Comment on above: Performed By: #### L ACT ####[facility] [address] [place] [address]Dr. Felisa Trujillo PH VENOUS BLOODon 11-02-2021 PCO2 VENOUS 40.3 mmHg Normal 40.0-52.0 [facility] Comment on above: Performed By: #### P HVEN ####[facility] [address] [place] [address]Dr. Felisa Trujillo pH VENOUS 7.431 Critically high 7.330-7.430 [facility] Comment on above: Performed By: #### P HVEN ####[facility] [address] [place] [address]Dr. Felisa Trujillo PROF 14(COMP METB)on 022 Albumin [Mass/Vol] 4.1 g/dL Normal 3.4-5.0 [facility] Comment on above: Performed By: #### H STROPN, CMP, BNP ####[facility] [address] [place] [address]Dr. Felisa Trujillo Albumin/Globulin [Mass ratio] 1.1 {ratio} Normal [facility] Comment on above: Performed By: #### H STROPN, CMP, BNP ####[facility] [address] [place] [address]Dr. Felisa Trujillo ALP [Catalytic activity/Vol] 120 U/L Critically high 46-116 [facility] Comment on above: Performed By: #### H STROPN, CMP, BNP ####[facility] [address] [place] [address]Dr. Felisa Trujillo ALT [Catalytic activity/Vol] 29 U/L Normal 14-59 [facility] Comment on above: Performed By: #### H STROPN, CMP, BNP ####[facility] [address] [place] [address]Dr. Felisa Trujillo Anion gap [Moles/Vol] 14.2 mmol/L Normal [facility] Comment on above: Performed By: #### H STROPN, CMP, BNP ####[facility] [address]ke[address] [place] [address]Dr. Felisa Trujillo AST [Catalytic activity/Vol] 24 U/L Normal 15-37 [facility] Comment on above: Performed By: #### H STROPN, CMP, BNP ####[facility] [address] [place] [address]Dr. Felisa Trujillo Bilirubin [Mass/Vol] 0.6 mg/dL Normal 0.2-1.0 [facility] Comment on above: Performed By: #### H STROPN, CMP, BNP ####[facility] [address] [place] [address]Dr. Felisa Trujillo Calcium [Mass/Vol] 8.8 mg/dL Normal 8.5-10.1 [facility] Comment on above: Performed By: #### H STROPN, CMP, BNP ####[facility] [address]ks[address] [place] [address]Dr. Felisa Trujillo Chloride [Moles/Vol] 103 mmol/L Normal 98-107 [facility] Comment on above: Performed By: #### H STROPN, CMP, BNP ####[facility] [address] [place] [address]Dr. Felisa Trujillo CO2 [Moles/Vol] 25.3 mmol/L Normal 21.0-32.0 [facility] Comment on above: Performed By: #### H STROPN, CMP, BNP ####[facility] [address] [place] [address]Dr. Felisa Trujillo Creatinine [Mass/Vol] 0.86 mg/dL Normal 0.55-1.02 [facility] Comment on above: Performed By: #### H STROPN, CMP, BNP ####[facility] [address] [place] [address]Dr. Felisa Trujillo EGFR-AF SWISS >60 Normal >=60 [facility] Comment on above: Performed By: #### H STROPN, CMP, BNP ####[facility] [address] [place], [place] [address]Dr. Felisa Trujillo EGFR-NON AF SWISS >60 Normal >=60 [facility] Comment on above: Performed By: #### H STROPN, CMP, BNP ####[facility] [address] [place] [address]Dr. Felisa Trujillo Globulin (S) [Mass/Vol] 3.6 g/dL Normal [facility] Comment on above: Performed By: #### H STROPN, CMP, BNP ####[facility] [address] [place] [address]Dr. Felisa Trujillo Glucose [Mass/Vol] 90 mg/dL Normal 74-106 [facility] Comment on above: Performed By: #### H STROPN, CMP, BNP ####[facility] [address]enr[address] [place] [address]Dr. Felisa Trujillo Potassium [Moles/Vol] 3.5 mmol/L Normal 3.5-5.1 [facility] Comment on above: Performed By: #### H STROPN, CMP, BNP ####[facility] [address] [place] [address]Dr. Felisa Trujillo Protein [Mass/Vol] 7.7 g/dL Normal 6.1-8.2 [facility] Comment on above: Performed By: #### H STROPN, CMP, BNP ####[facility] [address] [place] [address]Dr. Felisa Trujillo Sodium [Moles/Vol] 139 mmol/L Normal 136-145 [facility] Comment on above: Performed By: #### H STROPN, CMP, BNP ####[facility] [address] [place] [address]Dr. Felisa Trujillo Urea nitrogen [Mass/Vol] 13.0 mg/dL Normal 7.0-18.0 [facility] Comment on above: Performed By: #### H STROPN, CMP, BNP ####[facility] [address] [place] [address]Dr. Felisa Trujillo Urea nitrogen/Creatinine [Mass ratio] 15.1 mg/mg Normal [facility] Comment on above: Performed By: #### H AJITH, CMP, BNP ####[facility] [address] [place] [address]DrMichelle Trujillo PROTIMEon 11-02-2021 INR Coag (PPP) [Relative time] 0.99 {INR} Normal [facility] Comment on above: Performed By: #### P TT, PT #### [facility] [address] [address] [address] Felisa Trujillo INR GUIDELINES SEE BELOW Normal [facility] Comment on above: Result Comment: KAY RED INR: 2.0 - 3.0 CONDITIONS NOT LISTED BELOW 2.5 - 3.5 FOR PROSTHETIC HEART VALVE REPLACEMENT 2.5 - 3.5 RECURRENT THROMBOSIS Performed By: #### P TT, PT #### [facility] [address] [address] [address] Felisa Trujillo PT Coag (PPP) [Time] 10.7 s Normal 9.0-11.6 [facility] Comment on above: Performed By: #### P TT, PT #### [facility] [address] [place] [address] Dr. Felisa Trujillo PTTon 11-02-2021 aPTT Coag (Bld) [Time] 25.9 s Normal 22.3-36.2 [facility] Comment on above: Performed By: #### P TT, PT #### [facility] [address] [address] [address] Felisa Trujillo TROPONIN, HIGH SENSITIVITYon 11-02-2021 HSTROP 8.7 pg/mL Normal 4.0-51.3 [facility] Comment on above: Result Comment: CUT- OFF POINTS HAVE BEEN ESTABLISHED BASED ON THE FOURTH UNIVERSAL DEFINITIONS OF MYOCARDIAL INFARCTION. THE UPPER REFERENCE LIMIT (URL) OF TROPONIN, DEFINED THE 99TH PERCENTILE OF cTnI DISTRIBUTION IN A REFERENCE POPULATION, HAS BEEN CONFIRMED THE DECISION THRESHOLD FOR ND DIAGNOSIS. Performed By: #### H STROPN, CMP, BNP #### [facility] [address] [place] [address] Dr. Felisa Trujillo Covid-19 PCR ([facility])on SARS-CoV-2 (COVID-19) RNA DUGLAS+probe Ql (Unsp spec) Not detected Normal NOT DETECTED [facility] Comment on above: Result Comment: This test is not yet approved or cleared by the [place] FDA. When there are no FDA-approved or cleared tests available, and other criteria are met, FDA can make tests available under an emergency access mechanism called an Emergency Use Authorization (EUA). The EUA for this test is supported by the Pricing Supervisor of Health and Human Service's (HHS's) declaration [...] SARS-CoV-2. Performed By: #### C VDTBH #### [facility] [address] [place], [place] [address] Dr. Felisa Trujillo XR CHEST 2 Von [...] by: MEHNAZ SANTIAGO Date: 2021-09-02 14:39 Normal [facility] Lab - AP Resultson 9 Lab - AP Results [id number]#1.00 OTGTIFF Normal [facility] Pathology Sendout Teston Pathology Send Out. See Report Normal [facility] Comment on above: Order Comment: left ring finger , cyst tendon sheath Performed By: #### 2 [id number] ####[facility] (DEFAULT)[address] [place] [address] Coding Summaryon 02-08-2019 Coding Summary CODING DATE: 02/08/2019 [facility] STATUS: Home PAYOR: Medicare MC APC DESCRIPTION 5112 Level 2 Musculoskeletal Procedures ADMIT DX: REASON FOR VISIT DX: M65.342 Trigger finger, left ring finger FINAL DX: PRINCIPAL: M65.342 Trigger finger, left ring finger SECONDARY: M67.442 Ganglion, left hand J44.9 Chronic obstructive pulmonary disease, unspecified PYMT PROC APC STAT DESCRIPTION DOCTOR NAME DATE 51512 4312 J1 Excision of lesion of Daquan Antunez [...] Date Saved: 02/08/2019 11:52 am [facility] Consent Formson 02-05-2019 Consent Forms [id number]#1.00 [facility] Discharge Instructionson Discharge Instructions [id number]#1.00 [facility] History and Physicalon 02-05 History and Physical [id number]#1.00 [facility] MAGR Intraoperative Recordon 02-05-2019 MAGR Intraoperative Record MAGR Intra-Op Record Summary Primary Physician: Daquan Antunez DO Finalized Date/Time: 02/05/19 07:41:01 Pt. Name: SHEY OBRIEN NORMAN /Sex: 1950 FEMALE Med Rec #: [id number] Physician: Daquan Antunez DO Financial #: [id number] Pt. Type: D Room/Bed: / Admit/Disch: 02/04/19 [...] Role Performed Surgeon - Primary Anesthesiologist of Intellectual Property Paralegal Record Time In 02/04/19 15:31:00 02/04/19 15:31:00 02/04/19 15:31:00 Time Out 02/04/19 16:08:00 02/04/19 16:08:00 02/04/19 16:08:00 Procedure Trigger Finger Release Trigger Finger Release Trigger Finger Release Last Modified By: Toshia Plascencia RN, Barbara RN Long, Barbara RN 02/04/19 16:16:05 02/04/19 16:16:05 02/04/19 16:16:05 Entry 4 Entry 5 Case Attendee Paloma Esparza Regina CST Role Performed Scrub Personnel High Pressure Kettle Operator Time In 02/04/19 15:31:00 02/04/19 15:31:00 [...] Modify Pick List 02/05/19 07:40 MHBLONG Modify [facility] Medication Managementon 01-09 Medication Management [id number]#1.00 [facility] Provider Orderson 02-05-2019 Provider Orders [id number]#1.00 [facility] Anesthesia Noteon 02-04-2019 Anesthesia Note Patient: SHEY [...] Problems Chronic back pain / SNOMED CT 390007495 / Confirmed Former smoker / SNOMED CT 94942727 / Confirmed GERD (gastroesophageal reflux disease) / SNOMED CT 058608456 / Confirmed Scar tissue / SNOMED CT 955021905 / Confirmed Sleep apnea / SNOMED CT 938818986 / Confirmed Histories Family History: No family history items have been selected or recorded. Procedure history: Tonsillectomy (040347139). Epidural injection of lumbar spine using fluoroscopic guidance (5167817242). Social History Alcohol Assessment Use: Current. Beer, [...] rhythm. Review / Management Laboratory Results Plan [place] [employer] Anesthesiologists#(ASA ) physical status classification: [...] 15:44 EDT] Alirio Mcclellan MD [facility] Inpatient Patient Summaryon 02-04-2019 [place] [address] Patient Discharge Instructions Name: SHEY OBRIEN : 52 Patient Address: [address] [place] [address] Primary Care Provider: Name: LATRELL JACK After you are discharged if you find you have any questions, please, call [phone] ext [phone] to speak to a nurse. Discharge Diagnosis: [...] contact the [facility] 30/01 Crisis Hotline -Text 4HYTW kk 764496. If you received any narcotics, sedation, or [...] business decisions or sign any legal documents [facility] would like to thank you for allowing us to assist you with your healthcare needs. The following includes patient education materials and information regarding your injury/illness. SHEY OBRIEN has been given the following list of follow-up instructions, prescriptions, and patient education materials: Follow-up Instructions With: Address: When: Daquan Antunez [address], [address] [place] [address] Business (2) 02/12/2019 2:00 PM With: Address: When: LATRELL JACK [address] [place], [place] [id number] Business (1) Medications During the course of [...] awake -DO NOT lift heavy objects or biodiesel processing technician forcefully with the affected hand -DO [...] or concerns, please call the office at [phone] or go to the emergency room -Follow [...] Control and Prevention March 2014 [facility] MAGR Postoperative Recordon 02-04-2019 MAGR Postoperative Record MAGR Phase II Record Summary Primary Physician: Daquan Antunez DO Finalized Date/Time: 02/04/19 17:11:50 Pt. Name: SHEY OBRIEN NORMAN Bhatt./Sex: 1950 FEMALE Med Rec #: [id number] Physician: Daquan Antunez DO Financial #: [id number] Pt. Type: D Room/Bed: / Admit/Disch: 02/04/19 [...] Signed By: Jamil Garibay RN 02/04/19 17:11 [facility]2019 [facility] MAGR Pre-Op Record Summary Primary Physician: Daquan Antunez DO Finalized Date/Time: 02/04/19 15:37:19 Pt. Name: SHEY OBRIEN /Sex: 1950 FEMALE Med Rec #: [id number] Physician: Daquan Antunez DO Financial #: [id number] Pt. Type: D Room/Bed: / Admit/Disch: 02/04/19 [...] Signed By: Toshia Plascencia RN 02/04/19 15:37 [facility] Operative Report - Surgeon/P shalini [...] cc of 1% lidocaine injected locally by de )transverse incision was made over the A1 [...] 16:37 EDT] Daquan Antunez DO [facility] Patient Handouton 02-04-[address] OHARA POST OPERATIVE INSTRUCTIONS FOR FINGER SURGERY/MALLET FINGER REPAIR SURGEONS WRITTEN INSTRUTCTIONS:' -Keep your hand elevated above your elbow for the first 24 hours after surgery and apply an ice bag at intervals for the first 24 hours -Wiggle the unaffected fingers frequently while awake -DO NOT lift heavy objects or biodiesel processing technician forcefully with the affected hand -DO [...] or concerns, please call the office at [phone] or go to the emergency room -Follow up as scheduled [facility] Progress Note - Nurseon 01-08 Progress Note - Nurse Spoke with pt regarding arrival time of 1145 and NPO status. Verbalized understanding. Pt instructed she will need a drive away driver. Verbalized understanding. [Electronically Signed on: 02/01/2019 14:53 EDT] Kika Akers RN [Verified on: 02/01/2019 14:53 EDT] Kika Akers RN [facility] Coding Summaryon 01-29-2019 Coding Summary CODING DATE: 01/29/2019 [facility] STATUS: Home PAYOR: Medicare MC [...] Date Saved: 01/29/2019 01:42 pm [facility] .Auto Diff 01-28-2019 Auto Woods % 8 % Normal 1-12 [facility] Comment on above: Performed By: #### 7 [id number], [id number] #### [facility] (DEFAULT) [address] [place] [address] Baso Abs# 0.0 x10 Normal 0.0-0.2 [facility] Comment on above: Performed By: #### 7 [id number], [id number] #### [facility] (DEFAULT) [address] [place] [address] Basophils/100 WBC (Bld) 0.4 % Normal 0.2-2.0 [facility] Comment on above: Performed By: #### 7 [id number], [id number] #### [facility] (DEFAULT) [address] [place] [address] Eos Abs# 0.2 x10 Normal 0.0-0.4 [facility] Comment on above: Performed By: #### 7 [id number], [id number] #### [facility] (DEFAULT) [address] [place] [address] Eosinophils/100 WBC (Bld) 3.5 % Normal 0.9-4.0 [facility] Comment on above: Performed By: #### 7 [id number], [id number] #### [facility] (DEFAULT) [address] [place] [address] Lymphocytes (Bld) [#/Vol] 1.6 x10 Normal 1.3-2.9 [facility] Comment on above: Performed By: #### 7 [id number], [id number] #### [facility] (DEFAULT) [address] [place] [address] Lymphocytes/100 WBC (Bld) 32 % Normal 14-48 [facility] Comment on above: Performed By: #### 7 [id number], [id number] #### [facility] (DEFAULT) [address] [place] [address] Woods Abs# 0.4 x10 Normal 0.0-0.8 [facility] Comment on above: Performed By: #### 7 [id number], [id number] #### [facility] (DEFAULT) [address] [place] [address] Neut Abs# 2.8 x10 Normal 1.5-9.2 [facility] Comment on above: Performed By: #### 7 [id number], [id number] #### [facility] (DEFAULT) [address] [place] [address] Neutrophils/100 WBC (Bld) 56 % Normal 44-88 [facility] Comment on above: Performed By: #### 7 [id number], [id number] #### [facility] (DEFAULT) [address] [place] [address] CBC w/ Auto Diffon 9 Erythrocyte distribution width (RBC) [Ratio] 13.4 % Normal 11.5-15.0 [facility] Comment on above: Performed By: #### 7 [id number], [id number] #### [facility] (DEFAULT) [address] [place] [address] Hematocrit (Bld) [Volume fraction] 40.4 % Normal 33.7-40.4 [facility] Comment on above: Performed By: #### 7 [id number], [id number] #### [facility] (DEFAULT) [address] [place] [address] Hemoglobin (Bld) [Mass/Vol] 13.9 g/dL Normal 11.3-15.9 [facility] Comment on above: Performed By: #### 7 [id number], [id number] #### [facility] (DEFAULT) [address] [place] [address] Man Diff? Auto Normal [facility] Comment on above: Performed By: #### 7 [id number], [id number] #### [facility] (DEFAULT) [address] [place] [address] MCH (RBC) [Entitic mass] 31 pg Normal 24-34 [facility] Comment on above: Performed By: #### 7 [id number], [id number] #### [facility] (DEFAULT) [address] [place] [address] MCHC (RBC) [Mass/Vol] 34 g/dL Normal 26-37 [facility] Comment on above: Performed By: #### 7 [id number], [id number] #### [facility] (DEFAULT) [address] [place] [address] MCV (RBC) [Entitic vol] 90 fL Normal 81-100 [facility] Comment on above: Performed By: #### 7 [id number], [id number] #### [facility] (DEFAULT) [address] [place] [address] Platelet mean volume (Bld) [Entitic vol] 10.3 fL High 6.3-10.2 [facility] Comment on above: Performed By: #### 7 [id number], [id number] #### [facility] (DEFAULT) [address] [place] [address] Platelets (Bld) [#/Vol] 199 x10 Normal 138-427 [facility] Comment on above: Performed By: #### 7 [id number], [id number] #### [facility] (DEFAULT) [address] [place] [address] RBC (Bld) [#/Vol] 4.47 x10 Normal 3.70-5.30 [facility] Comment on above: Performed By: #### 7 [id number], [id number] #### [facility] (DEFAULT) [address] [place] [address] WBC (Bld) [#/Vol] 5.1 x10 Normal 3.5-10.5 [facility] Comment on above: Performed By: #### 7 [id number], [id number] #### [facility] (DEFAULT) [address] [place] [address] Vital Signs Date Time Vital Sign Value Performing Clinician Facility 02-24-2025 11:00-0400 Body height 160 cm Latrell Jack MD Work Phone: [facility] 02-24-2025 11:00-0400 Body mass index (BMI) [Ratio] 40.03 kg/m2 Latrell Jack MD Work Phone: [facility] 02-24-2025 11:00-0400 Body temperature 97.11 [degF] Latrell Jack MD Work Phone: [facility] 02-24-2025 11:00-0400 Body weight 102.51 kg Latrell Jack MD Work Phone: [facility] 02-24-2025 11:00-0400 Diastolic blood pressure 76 mm[Hg] Latrell Jack MD Work Phone: [facility] 02-24-2025 11:00-0400 Heart rate 106 /min Latrell Jack MD Work Phone: [facility] 02-24-2025 11:00-0400 Respiratory rate 22 /min Latrell Jack MD Work Phone: [facility] 02-24-2025 11:00-0400 SaO2% (BldA) [Mass fraction] 95 % Latrell Jack MD Work Phone: [facility] 02-24-2025 11:00-0400 Systolic blood pressure 162 mm[Hg] Latrell Jack MD Work Phone: [facility] 02-03-2025 15:56-0400 Body height 160.02 cm Latrell Jack MD Work Phone: [facility] 02-03-2025 15:56-0400 Body mass index (BMI) [Ratio] 38.4 kg/m2 Latrell Jack MD Work Phone: [facility] 02-03-2025 15:56-0400 Body weight 98.42 kg Latrell Jack MD Work Phone: [facility] 02-03-2025 15:56-0400 Diastolic blood pressure 96 mm[Hg] Latrell Jack MD Work Phone: [facility] 02-03-2025 15:56-0400 Heart rate 90 /min Latrell Jack MD Work Phone: [facility] 02-03-2025 15:56-0400 SaO2% (BldA) [Mass fraction] 92 % Latrell Jack MD Work Phone: [facility] 02-03-2025 15:56-0400 Systolic blood pressure 164 mm[Hg] aLtrell Jack MD Work Phone: [facility] 12-16-2024 15:53-0400 Body temperature 98.2 [degF] Latrell Jack MD Work Phone: [facility] 12-16-2024 15:53-0400 Heart rate 84 /min Latrell Jack MD Work Phone: [facility] 12-16-2024 15:53-0400 Respiratory rate 18 /min Latrell Jack MD Work Phone: [facility] 12-16-2024 15:53-0400 SaO2% (BldA) [Mass fraction] 99 % Latrell Jack MD Work Phone: [facility] 12-16-2024 14:15-0400 Diastolic blood pressure 72 mm[Hg] Latrell Jack MD Work Phone: [facility] 12-16-2024 14:15-0400 Systolic blood pressure 144 mm[Hg] Latrell Jack MD Work Phone: [facility] 12-16-2024 09:00-0400 Body weight 100.3 kg Latrell Jack MD Work Phone: [facility] 12-13-2024 14:41-0400 Body height 160.02 cm Latrell Jack MD Work Phone: [facility] 12-04-2024 13:39-0400 Body height 160 cm Latrell Jack MD Work Phone: [facility] 12-04-2024 13:39-0400 Body mass index (BMI) [Ratio] 38.97 kg/m2 Latrell Jack MD Work Phone: [facility] 12-04-2024 13:39-0400 Body temperature 97.3 [degF] Latrell Jack MD Work Phone: [facility] 12-04-2024 13:39-0400 Body weight 99.79 kg Latrell Jack MD Work Phone: [facility] 12-04-2024 13:39-0400 Diastolic blood pressure 92 mm[Hg] Latrell Jack MD Work Phone: [facility] 12-04-2024 13:39-0400 Heart rate 97 /min Latrell Jack MD Work Phone: [facility] 12-04-2024 13:39-0400 Respiratory rate 22 /min Latrell Jack MD Work Phone: [facility] 12-04-2024 13:39-0400 SaO2% (BldA) [Mass fraction] 97 % Latrell Jack MD Work Phone: [facility] 12-04-2024 13:39-0400 Systolic blood pressure 186 mm[Hg] Latrell Jack MD Work Phone: [facility] 08-27-2024 10:25-0500 Body height 160 cm Latrell Jack MD Work Phone: [facility] 08-27-2024 10:25-0500 Body mass index (BMI) [Ratio] 36.14 kg/m2 Latrell Jack MD Work Phone: [facility] 08-27-2024 10:25-0500 Body temperature 95.9 [degF] Latrell Jack MD Work Phone: [facility] 08-27-2024 10:25-0500 Body weight 92.53 kg Latrell Jack MD Work Phone: [facility] 08-27-2024 10:25-0500 Diastolic blood pressure 68 mm[Hg] Latrell Jack MD Work Phone: [facility] 08-27-2024 10:25-0500 Heart rate 50 /min Latrell Jack MD Work Phone: [facility] 08-27-2024 10:25-0500 Respiratory rate 22 /min Latrell Jack MD Work Phone: [facility] 08-27-2024 10:25-0500 SaO2% (BldA) [Mass fraction] 97 % Latrell Jack MD Work Phone: [facility] 08-27-2024 10:25-0500 Systolic blood pressure 140 mm[Hg] Latrell Jack MD Work Phone: [facility] 08-07-2024 14:04-0500 Body height 162.6 cm Katarzyna Miles PLANNING AIDE.LOG [employer]CHER Work Phone: [facility] 08-07-2024 14:04-0500 Body mass index (BMI) [Ratio] 34.84 kg/m2 Katarzyna Miles PLANNING AIDE.LOG B[employer]CHER Work Phone: [facility] 08-07-2024 14:04-0500 Body temperature 97.59 [degF] Katarzyna Miles PLANNING AIDE.[employer]CHER Work Phone: [facility] 08-07-2024 14:04-0500 Body weight 92.08 kg Katarzyna Miles PLANNING AIDE.LOG B[employer]CHER Work Phone: [facility] 08-07-2024 14:04-0500 Diastolic blood pressure 72 mm[Hg] Katarzyna Miles PLANNING AIDE.LOG BUNCHER Work Phone: [facility] 08-07-2024 14:04-0500 Heart rate 75 /min Katarzyna Miles PLANNING AIDE.LOG [employer]CHER Work Phone: [facility] 08-07-2024 14:04-0500 Systolic blood pressure 151 mm[Hg] Katarzyna Miles PLANNING AIDE.LOG BUNCHER Work Phone: [facility] 07-23-2024 12:49-0500 Body height 160 cm [facility] 5 Work Phone: [facility] 07-23-2024 12:49-0500 Body mass index (BMI) [Ratio] 37.45 kg/m2 [facility] 5 Work Phone: [facility] 07-23-2024 12:49-0500 Body temperature 98.01 [degF] [facility] 5 Work Phone: [facility] 07-23-2024 12:49-0500 Body weight 95.9 kg [facility] 5 Work Phone: [facility] 07-23-2024 12:49-0500 Diastolic blood pressure 73 mm[Hg] [facility] 5 Work Phone: [facility] 07-23-2024 12:49-0500 Heart rate 77 /min [facility] 5 Work Phone: [facility] 07-23-2024 12:49-0500 Respiratory rate 20 /min [facility] 5 Work Phone: [facility] 07-23-2024 12:49-0500 SaO2% (BldA) [Mass fraction] 99 % [facility] 5 Work Phone: [facility] 07-23-2024 12:49-0500 Systolic blood pressure 153 mm[Hg] [facility] 5 Work Phone: [facility] 05-30-2024 15:36-0500 Body height 160 cm Sandra Arcos POLYMERIZATION OVEN OPERATOR Work Phone: [facility] 05-30-2024 15:36-0500 Body mass index (BMI) [Ratio] 38.26 kg/m2 Sandra Umamor POLYMERIZATION OVEN OPERATOR Work Phone: [facility] 05-30-2024 15:36-0500 Body weight 97.98 kg Sandra Umamor POLYMERIZATION OVEN OPERATOR Work Phone: [facility] 05-30-2024 15:36-0500 Diastolic blood pressure 82 mm[Hg] Sandra Umamor POLYMERIZATION OVEN OPERATOR Work Phone: [facility] 05-30-2024 15:36-0500 Systolic blood pressure 138 mm[Hg] Sandra Gillmor POLYMERIZATION OVEN OPERATOR Work Phone: [facility] 05-15-2024 10:02-0500 Body height 160 cm Latrell Jack MD Work Phone: [facility] 05-15-2024 10:02-0500 Body mass index (BMI) [Ratio] 38.26 kg/m2 Latrell Jack MD Work Phone: [facility] 05-15-2024 10:02-0500 Body temperature 97.11 [degF] Latrell Jack MD Work Phone: [facility] 05-15-2024 10:02-0500 Body weight 97.98 kg Latrell Jack MD Work Phone: [facility] 05-15-2024 10:02-0500 Diastolic blood pressure 80 mm[Hg] Latrell Jack MD Work Phone: [facility] 05-15-2024 10:02-0500 Heart rate 78 /min Latrell Jack MD Work Phone: [facility] 05-15-2024 10:02-0500 Respiratory rate 22 /min Latrell Jack MD Work Phone: [facility] 05-15-2024 10:02-0500 SaO2% (BldA) [Mass fraction] 97 % Latrell Jack MD Work Phone: [facility] 05-15-2024 10:02-0500 Systolic blood pressure 148 mm[Hg] Latrell Jack MD Work Phone: [facility] 04-29-2024 10:55-0400 Body height 152.4 cm Xavier Boyd MD Work Phone: [facility] 04-29-2024 10:55-0400 Body mass index (BMI) [Ratio] 42.58 kg/m2 Xavier Boyd MD Work Phone: [facility] 04-29-2024 10:55-0400 Body temperature 98.49 [degF] Xavier Boyd MD Work Phone: [facility] 04-29-2024 10:55-0400 Body weight 98.88 kg Xavier Boyd MD Work Phone: [facility] 04-29-2024 10:55-0400 Diastolic blood pressure 65 mm[Hg] Xavier Boyd MD Work Phone: [facility] 04-29-2024 10:55-0400 Heart rate 90 /min Xavier Boyd MD Work Phone: [facility] 04-29-2024 10:55-0400 Systolic blood pressure 144 mm[Hg] Xavier Boyd MD Work Phone: [facility] 03-20-2024 13:23-0400 Diastolic blood pressure 81 mm[Hg] Leos Sarmini [facility] 03-20-2024 13:23-0400 Heart rate 66 /min Leos Sarmini [facility] 03-20-2024 13:23-0400 Mean blood pressure 112 mm[Hg] Leos Sarmini [facility] 03-20-2024 13:23-0400 Respiratory rate 15 /min Leos Sarmini [facility] 03-20-2024 13:23-0400 SaO2% (BldA) [Mass fraction] 94 % Leos Sarmini [facility] 03-20-2024 13:23-0400 Systolic blood pressure 173 mm[Hg] Leos Sarmini [facility] 03-20-2024 13:15-0400 Diastolic blood pressure 78 mm[Hg] Leos Sarmini [facility] 03-20-2024 13:15-0400 Heart rate 64 /min Leos Sarmini [facility] 03-20-2024 13:15-0400 Mean blood pressure 105 mm[Hg] Leos Sarmini [facility] 03-20-2024 13:15-0400 Respiratory rate 13 /min Leos Sarmini [facility] 03-20-2024 13:15-0400 SaO2% (BldA) [Mass fraction] 96 % Leos Sarmini [facility] 03-20-2024 13:15-0400 Systolic blood pressure 159 mm[Hg] Leos Sarmini [facility] 03-20-2024 13:05-0400 Diastolic blood pressure 76 mm[Hg] Leos Sarmini [facility] 03-20-2024 13:05-0400 Heart rate 64 /min Leos Sarmini [facility] 03-20-2024 13:05-0400 Mean blood pressure 99 mm[Hg] Leos Sarmini [facility] 03-20-2024 13:05-0400 Respiratory rate 12 /min Leos Sarmini [facility] 03-20-2024 13:05-0400 SaO2% (BldA) [Mass fraction] 96 % Leos Sarmini [facility] 03-20-2024 13:05-0400 Systolic blood pressure 145 mm[Hg] Leos Sarmini [facility] 03-20-2024 12:58-0400 Body temperature 97.16 [degF] Leos Sarmini [facility] 03-20-2024 12:50-0400 Respiratory rate 15 /min Leos Sarmini [facility] 03-20-2024 12:45-0400 Respiratory rate 18 /min Leos Sarmini [facility] 03-20-2024 11:14-0400 Blood Pressure Location Leos Sarmini [facility] 03-20-2024 11:14-0400 Body temperature 97.7 [degF] Leos Sarmini [facility] 03-20-2024 11:14-0400 Respiratory rate 18 /min Leos Sarmini [facility] 03-07-2024 11:21-0400 Body height 160 cm Diomedes Amilcar DO Work Phone: [facility] 03-07-2024 11:21-0400 Body mass index (BMI) [Ratio] 44.46 kg/m2 Diomedes Amilcar DO Work Phone: [facility] 03-07-2024 11:21-0400 Body weight 113.85 kg Diomedes Amilcar DO Work Phone: [facility] 03-07-2024 11:21-0400 Diastolic blood pressure 88 mm[Hg] Diomedes Amilcar DO Work Phone: [facility] 03-07-2024 11:21-0400 Heart rate 84 /min Diomedes Amilcar DO Work Phone: [facility] 03-07-2024 11:21-0400 SaO2% (BldA) [Mass fraction] 94 % Diomedes Amilcar DO Work Phone: [facility] 03-07-2024 11:21-0400 Systolic blood pressure 146 mm[Hg] Diomedes Amilcar DO Work Phone: [facility] 02-26-2024 09:12-0400 Blood Pressure Location Leos Sarmini [facility] 02-26-2024 09:12-0400 Diastolic blood pressure 81 mm[Hg] Leos Sarmini [facility] 02-26-2024 09:12-0400 Heart rate 66 /min Leos Sarmini [facility] 02-26-2024 09:12-0400 Respiratory rate 16 /min Dafne Flowersi [facility] 02-26-2024 09:12-0400 Systolic blood pressure 131 mm[Hg] Dafne Houmini [facility] 10-13-2023 09:42-0400 Diastolic blood pressure 80 mm[Hg] Pa NILL [facility] 10-13-2023 09:42-0400 Heart rate 69 /min Pa NILL [facility] 10-13-2023 09:42-0400 Mean blood pressure 102 mm[Hg] Pa NILL [facility] 10-13-2023 09:42-0400 Respiratory rate 15 /min Pa NILL [facility] 10-13-2023 09:42-0400 SaO2% (BldA) [Mass fraction] 97 % Pa NILL [facility] 10-13-2023 09:42-0400 Systolic blood pressure 146 mm[Hg] Pa NILL [facility] 10-13-2023 09:32-0400 Diastolic blood pressure 76 mm[Hg] Pa NILL [facility] 10-13-2023 09:32-0400 Heart rate 67 /min Pa NILL [facility] 10-13-2023 09:32-0400 Mean blood pressure 94 mm[Hg] Pa NILL [facility] 10-13-2023 09:32-0400 Respiratory rate 20 /min Pa NILL [facility] 10-13-2023 09:32-0400 SaO2% (BldA) [Mass fraction] 95 % Pa NILL [facility] 10-13-2023 09:32-0400 Systolic blood pressure 129 mm[Hg] Pa NILL [facility] 10-13-2023 09:27-0400 Diastolic blood pressure 71 mm[Hg] Pa NILL [facility] 10-13-2023 09:27-0400 Heart rate 70 /min Pa NILL [facility] 10-13-2023 09:27-0400 Mean blood pressure 92 mm[Hg] Pa NILL [facility] 10-13-2023 09:27-0400 Respiratory rate 15 /min Pa NILL [facility] 10-13-2023 09:27-0400 SaO2% (BldA) [Mass fraction] 96 % Pa NILL [facility] 10-13-2023 09:27-0400 Systolic blood pressure 134 mm[Hg] Pa NILL [facility] 10-13-2023 09:17-0400 Body temperature 97.16 [degF] Pa NILL [facility] 10-13-2023 09:10-0400 Respiratory rate 16 /min Pa NILL [facility] 10-13-2023 09:05-0400 Respiratory rate 16 /min Pa NILL [facility] 10-13-2023 08:03-0400 Body temperature 97.34 [degF] Pa NILL [facility] 08-11-2023 09:53-0500 Body height 160 cm Latrell Jack MD Work Phone: [facility] 08-11-2023 09:53-0500 Body mass index (BMI) [Ratio] 40.39 kg/m2 Latrell Jack MD Work Phone: [facility] 08-11-2023 09:53-0500 Body temperature 97.11 [degF] Latrell Jack MD Work Phone: [facility] 08-11-2023 09:53-0500 Body weight 103.42 kg Latrell Jack MD Work Phone: [facility] 08-11-2023 09:53-0500 Diastolic blood pressure 70 mm[Hg] Latrell Jack MD Work Phone: [facility] 08-11-2023 09:53-0500 Heart rate 94 /min Latrell Jack MD Work Phone: [facility] 08-11-2023 09:53-0500 SaO2% (BldA) [Mass fraction] 97 % Latrell Jack MD Work Phone: [facility] 08-11-2023 09:53-0500 Systolic blood pressure 140 mm[Hg] Latrell Jack MD Work Phone: [facility] Healthcare Encounters Encounter Date Encounter Type Care Provider Facility Start: 03-04-2025 End: 03-04-2025 Clinisync Result Encounter Latrell Jack MD Work Phone: [facility] External Department Unsolicited Start: 03-04-2025 End: 03-04-2025 Clinisync Result Encounter Latrell Jack MD Work Phone: [facility] External Department Unsolicited Start: 02-27-2025 End: 02-27-2025 Clinisync Result Encounter Latrell Jack MD Work Phone: [facility] External Department Unsolicited Start: 02-27-2025 End: 02-27-2025 Clinisync Result Encounter Latrell Jack MD Work Phone: [facility] External Department Unsolicited Start: 02-24-2025 End: 02-24-2025 [...] 02-03-2025 ambulatory Latrell Jack MD Work Phone: [facility] Work Phone: Start: 02-03-2025 End: 02-03-2025 Patient encounter procedure Diomedes Fitzgerald DO -[facility] Work Phone: Start: 01-21-2025 ambulatory Latrell Jack Facility:[facility] Start: 12-30-2024 End: 12-30-2024 ambulatory Talat Arguello MD Facility:[facility] Start: 12-13-2024 Non-patient / Non-visit Latrell kendall MD [facility] Phone[facility] Work Phone: Start: 12-12-2024 End: 12-16-2024 Evaluation and management of inpatient Latrell Jack MD Work Phone: [facility] Work Phone: Start: 12-12-2024 End: 12-12-2024 Clinisync Result Encounter Generic External Data Provider [facility] External Department Unsolicited Start: 12-12-2024 End: 12-12-2024 Clinisync Result Encounter Generic External Data Provider [facility] External Department Unsolicited Start: 12-12-2024 End: 12-12-2024 Emergency department patient visit Elmer Kohli Facility:[facility] Start: 12-04-2024 End: 12-04-2024 Office [...] Start: 08-27-2024 End: 08-27-2024 Bamboo flowsheet Latrell Jakc MD Work Phone: [facility] Start: [...] px Latrell Jack MD Work Phone: [facility] Comment on above: Medicare annual well ness visit, subsequent (Primary Dx); Prediabetes; Dyslipidemia ([facility]); Encounter for long-term (current) use of medications; Essential hypertension, benign (CMS/HCC); Class 2 severe obesity due to excess calories with serious comorbidity and body mass index (BMI) of 36.0 to 36.9 in adult ([facility]/HCC); Chronic obstructive pulmonary disease, unspecified COPD type (CMS/HCC); 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[facility]) Start: 08-07-2024 End: 08-07-2024 Patient encounter procedure Katarzyna Snyder LOG BUNCHER Work Phone: General Surgery Comment on above: Postoperative visit (Primary Dx) Start: 08-07-2024 End: 08-07-2024 ambulatory KATARZYNA MILES Facility:[facility] Start: 07-31-2024 End: 07-31-2024 Telephone encounter Latrell Jack MD Work Phone: [facility] Start: 07-30-2024 End: 07-30-2024 Refill Latrell Jack MD Work Phone: [facility] Comment on above: Primary insomnia Start: 07-24-2024 End: 07-26-2024 Evaluation and management of inpatient XAVIER MERRITTCARMEL BOYD Facility:[facility] Start: 07-23-2024 End: 07-23-2024 ambulatory LATRELL JACK Facility:[facility] Start: 07-23-2024 End: 07-23-2024 Clinisync Result Encounter Generic External Data Provider [facility] External Department Unsolicited Start: 07-23-2024 End: 07-23-2024 Clinisync Result Encounter Generic External Data Provider [facility] External Department Unsolicited Start: 07-23-2024 End: 07-23-2024 Subsequent hospital visit by physician Xr Chest Main A21 Radiology Comment on above: Pre-op evaluation [Z 01.818] Start: 07-23-2024 End: 07-23-2024 Admission to [facility] Pacc Main 5 Work Phone: Pre Anesthesia Start: 07-23-2024 End: 07-23-2024 Anesthesia consultation [place] [id number] Work Phone: Pre Anesthesia Comment on above: [...] Start: 07-23-2024 End: 07-23-2024 Preprocedural examination done [place] [id number] Work Phone: [facility] Work Phone: Start: 07-23-2024 End: 07-23-2024 ambulatory LATRELL JCAK Facility:[facility] Start: 07-23-2024 Encounter for other preprocedural examination LATRELL JACK [facility] Start: 06-29-2024 End: 07-15-2024 Telephone encounter Sandra Arcos NP Work Phone: [facility] [employer] [address] Start: 06-24-2024 End: 06-24-2024 ambulatory Talat Arguello MD Facility: [place] Start: 06-13-2024 End: 06-13-2024 Telephone encounter Latrell Jack MD Work Phone: [facility] Comment on above: Medication Question Start: 06-10-2024 End: 06-10-2024 ambulatory Talat Arguello MD Facility: [place] Start: 05-30-2024 End: 05-30-2024 Office outpatient visit 25 minutes Sandra Arcos NP Work Phone: [facility] [place] [address] Comment on above: Memory loss (Primary Dx); Severe episode of recurrent major depressive disorder, 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); Generalized anxiety disorder (CMS/HCC); EDWIN on CPAP; Other chronic pain; Other insomnia Start: 05-30-2024 End: 05-30-2024 ambulatory SANDRA ARCOS Not Available Start: 05-30-2024 End: 05-30-2024 Bamboo flowsheet Sandra Arcos [employer]YMERIZATION OVEN OPERATOR Work Phone: [facility] [address] Start: 05-30-2024 End: 05-30-2024 Bamboo flowsheet Sandra Arcos POLYMERIZATION OVEN OPERATOR Work Phone: [facility] [address] Start: 05-27-2024 End: 05-27-2024 ambulatory Talat Arguello MD Facility:[facility] Start: 05-15-2024 End: 05-15-2024 Office outpatient visit 25 minutes Latrell Jack MD Work Phone: [facility] Comment on above: Essential hypertensi [...] 05-06-2024 End: 05-06-2024 ambulatory Talat Arguello MD Facility:[facility] Start: 05-04-2024 End: 05-06-2024 ambulatory Xavier Boyd MD Work Phone: [facility] Comment on above: 07.24.24 Cure (Lap P araesophageal Hernia Repair/EGD 4 hours los 1) Start: 05-04-2024 End: 05-06-2024 Preprocedural examination done Xavier Boyd MD Work Phone: [facility] Start: 04-29-2024 End: 04-29-2024 ambulatory DAFNE SPEARS Facility:[facility] Start: 04-29-2024 End: 04-29-2024 Office outpatient new 45 minutes Xavier Boyd MD Work Phone: General Surgery Comment on above: Paraesophageal herni a (Primary Dx) Start: 04-22-2024 End: 04-22-2024 Telephone encounter Ashlie Calderon OZZY General Surgery Start: 04-15-2024 End: 04-15-2024 ambulatory Talat Arguello MD Facility:[facility] Start: 04-11-2024 End: 04-11-2024 Patient encounter procedure [...] HOSPITAL NEUROLOGY Start: 03-26-2024 End: 03-26-2024 ambulatory Dafne Spears Facility:[facility] Start: 03-26-2024 End: 03-26-2024 Patient encounter procedure Dafne Spears [facility] Start: 03-25-2024 End: 03-25-2024 ambulatory DIOMEDES FITZGERALD Not Available Start: 03-20-2024 End: 03-20-2024 ambulatory Leos Talal Ameyamini Facility:[facility] Start: 03-20-2024 End: 03-20-2024 Patient encounter procedure Dafne Houmini [facility] Start: 03-07-2024 End: 03-07-2024 Bamboo flowsheet Diomedes Amilcar DO Work Phone: [employer] [address] Start: 03-07-2024 End: 03-07-2024 Bamboo flowsheet Diomedes Amilcar DO Work Phone: [employer] [address] Start: 03-07-2024 End: 03-07-2024 Clinisync Result Encounter Diomedes Fitzgerald DO Work Phone: [facility] External Department Unsolicited Start: 03-07-2024 End: 03-07-2024 Office outpatient visit 40 minutes Diomedes Amilcar DO Work Phone: [employer] [address] Comment on above: Memory loss (Primary Dx); 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CMS/HCC); Mild cognitive impairment; EDWIN (obstructive sleep apnea) Start: 03-07-2024 End: 03-07-2024 ambulatory DIOMEDES FITZGERALD Not Available Start: 02-26-2024 End: 02-26-2024 ambulatory Dafne Houmini Facility:[facility] Start: 02-26-2024 End: 02-26-2024 Patient encounter procedure Dafne Houmini [facility] Start: 02-13-2024 ambulatory Pa WEBB Facility:[facility] Start: 10-13-2023 End: 10-13-2023 ambulatory Pa WEBB Facility:[facility] Start: 10-13-2023 End: 04-05-2024 Patient encounter procedure Pa WEBB [facility] Start: 09-12-2023 End: 09-12-2023 ambulatory Pa WEBB Facility:[facility] Start: 09-05-2023 ambulatory Pa WEBB Facility:[facility] [...] Start: 09-10-2021 End: 09-10-[address] WILLARD NAAND Facility:[facility] Start: 09-09-2021 Encounter for preprocedural laboratory examination MARNIE PEMBERTON [facility] Start: 09-07-2021 End: 09-07-[address] LATRELL JACK Facility:[facility] Start: 09-07-2021 End: 09-07-2021 Encounter for preprocedural laboratory examination DR LATRELL JACK Facility:[facility] Start: 09-03-2021 Encounter for preprocedural cardiovascular examination MARNIE PEMBERTON [facility] Start: 09-02-2021 End: 09-03-[address] LATRELL JACK Facility:[facility] Start: 09-02-2021 End: 09-03-2021 Encounter for preprocedural cardiovascular examination DR LATRELL JACK Facility:[facility] Procedures Date Procedure Procedure Detail Performing Clinician Start: 03-04-2025 CT LUNG SCREENING LOW DOSE Latrell Jack MD Work Phone: Start: 02-27-2025 MM TOMOSYNTHESIS SCREENING BI Latrell hobbs MD Work Phone: Start: 02-27-2025 Mammography Latrell Jack MD Work Phone: Start: 12-12-2024 XR HIP LT MIN 2V Generic External Data Provider Start: 08-27-2024 ALL CBC WITH AUTO DIFF Latrell Jack MD Work Phone: Start: 07-23-2024 Antibody screen LATRELL JACK Comment on above: Order Comment: Specimen Type: BLOOD SPEC IMEN Ordering Facility: [facility] Address: [address] [place] [address] Performed By: #### 2 [id number], HSTNT, [id number], [id number] #### [facility] CLIA [id number] [address] [place] [address] [place] Start: 07-23-2024 [facility] CBC W AUTO DIFF BLD Generic External Data Provider Start: 03-20-2024 Esophagogastroduodenoscopy Leos Dandy inkylie Start: 03-07-2024 ALL FOLIC ACID Diomedes Fitzgerald [...] Screening for malign ant neoplasm of colon [facility] Start: 07-26-2027 [facility] Start: 07-23-2027 [facility] Start: 09-21-2026 RSV Vaccine (1 - 1-d ose 75+ series) RSV Vaccine (1 - 1-dose 75+ series) [facility] Start: 02-27-2026 Screening for malign ant neoplasm of breast Mammogram [facility] Start: 08-07-2025 End: 09-06-2025 CT Chest WO contrast CT CHEST WO IVCON Radiology Routine Postoperative visit Expected: 08/07/2025, Expires: 09/06/2025 [facility] Work Phone: Comment on above: Expected: 08/07/2025 , Expires: 09/06/2025 Start: 04-29-2025 End: 04-29-2025 Patient encounter procedure 04/29/2025 1:15 PM EDT Office Visit [facility] [address] [place] [phone] Latrell Jack MD [address] [place] [address] [facility] Start: 03-10-2025 Influenza vaccination Influenza Vacc ine (#1) [facility] Start: 02-24-2025 End: 02-24-2026 CT Chest for screening WO contrast CT lung screening low dose Imaging Routine Former smoker Expected: 02/24/2025, Expires: 02/24/2026 [facility] Comment on above: Expected: 02/24/2025 , Expires: 02/24/2026 Start: 02-24-2025 End: 04-26-2026 MG Breast - bilateral Screening Bilateral screening mammogram Imaging Routine Breast cancer screening by mammogram Expected: 02/24/2025, Expires: 04/26/2026 [facility] Work Phone: Comment on above: Expected: 02/24/2025 , Expires: 04/26/2026 Start: 02-24-2025 End: 02-24-2025 Patient encounter procedure [facility] Comment on above: Arrived Start: 02-03-2025 End: 02-03-2025 Patient encounter procedure 02/03/2025 4:00 PM EDT Office Visit [facility] [place] [address] [place] [phone] Diomedes Fitzgerald DO [address] [place] [address] [facility] Start: 12-30-2024 End: 12-30-2024 Patient encounter procedure 12/30/2024 1:00 PM EDT Office Visit [facility] [address] [place] [phone] Diomedes Fitzgerald, DO [address] [place] [address] [facility] Start: 12-16-2024 [facility] Start: 12-12-2024 Referral to Aircraft Instrument Tester [facility] Start: 12-12-2024 Hospital admission [facility] Start: 11-27-2024 Screening for malign ant neoplasm of breast Mammogram [facility] Start: 09-26-2024 End: 09-26-2024 Patient encounter procedure [facility] [address] Start: 08-27-2024 End: 08-27-2025 Basic metabolic 1998 panel - Serum or Plasma Basic metabolic panel Lab Routine Essential hypertension, benign (CMS/HCC) Expected: 08/27/2024 (Approximate), Expires: 08/27/2025 [facility] Comment on above: Expected: 08/27/2024 (Approximate), Expires: 08/27/2025 Start: 08-27-2024 End: 08-27-2025 CBC W Auto Differential panel - Blood CBC and differential Lab Routine Encounter for long-term (current) use of medications Expected: 08/27/2024 (Approximate), Expires: 08/27/2025 [facility] Comment on above: Expected: 08/27/2024 (Approximate), Expires: 08/27/2025 Start: 08-27-2024 End: 08-27-2025 Hemoglobin A1c/Hemoglobin.total in Blood Hemoglobin A1c Lab Routine Prediabetes Expected: 08/27/2024 (Approximate), Expires: 08/27/2025 [facility] Work Phone: Comment on above: Expected: 08/27/2024 (Approximate), Expires: 08/27/2025 Start: 08-27-2024 End: 08-27-2025 Hepatic function 2000 panel - Serum or Plasma Hepatic function panel Lab Routine Encounter for long-term (current) use of medications Expected: 08/27/2024 (Approximate), Expires: 08/27/2025 [facility] Comment on above: Expected: 08/27/2024 (Approximate), Expires: 08/27/2025 Start: 08-27-2024 End: 08-27-2025 Lipid 1996 panel - Serum or Plasma Lipid panel Lab Routine Dyslipidemia ([facility]) Expected: 08/27/2024 (Approximate), Expires: 08/27/2025 [facility] Comment on above: Expected: 08/27/2024 (Approximate), Expires: 08/27/2025 Start: 08-27-2024 End: 08-27-2025 Thyrotropin [Units/volume] in Serum or Plasma TSH Lab Routine Class 2 severe obesity due to excess calories with serious comorbidity and body mass index (BMI) of 36.0 to 36.9 in adult (CMS/HCC) Expected: 08/27/2024 (Approximate), Expires: 08/27/2025 [facility] Comment on above: Expected: 08/27/2024 (Approximate), Expires: 08/27/2025 Start: 08-16-2024 End: 08-16-2024 Patient encounter procedure 08/16/2024 9:00 AM EST [facility] [address] [place] [address] Latrell Jack MD [address] [place] [address] [facility] Start: 07-24-2024 End: 07-24-2024 Admission to same day surgery center 07/24/2024 10:51 AM EST - 07/24/2024 3:42 PM EST Surgery Admitting [address] [place] [address] Xavier Boyd MD [address] [place] [address] LAPAROSCOPIC RPR PARAESOPHAGEAL HERNIA W/O FUNDOPLASTY W/ [...] 07-10-2024 Advance Directive Discussion Advance Directive Discussion [facility] Start: 06-29-2024 End: 10-29-2024 aPTT in Platelet poor plasma by Coagulation assay ACTIVATED PARTIAL THROMBOPLASTIN TIME Lab Routine Preoperative examination Paraesophageal hernia Abnormal coagulation profile Expected: 06/29/2024, Expires: 10/29/2024 [facility] Comment on above: Expected: 06/29/2024 , Expires: 10/29/2024 Start: 06-29-2024 End: 10-29-2024 CBC W Auto Differential panel - Blood COMPLETE BLOOD COUNT AND DIFFERENTIAL Lab Routine Preoperative examination Paraesophageal hernia Expected: 06/29/2024, Expires: 10/29/2024 [facility] Comment on above: Expected: 06/29/2024 , Expires: 10/29/2024 Start: 06-29-2024 End: 10-29-2024 Comprehensive metabolic 2000 panel - Serum or Plasma COMPREHENSIVE METABOLIC PANEL Lab Routine Preoperative examination Paraesophageal hernia Expected: 06/29/2024, Expires: 10/29/2024 [facility] Comment on above: Expected: 06/29/2024 , Expires: 10/29/2024 Start: 06-29-2024 End: 10-29-2024 PT panel - Platelet poor plasma by Coagulation assay PROTHROMBIN TIME Lab Routine Preoperative examination Paraesophageal hernia Abnormal results of liver function studies Expected: 06/29/2024, Expires: 10/29/2024 [facility] Comment on above: Expected: 06/29/2024 , Expires: 10/29/2024 Start: 06-29-2024 End: 10-29-2024 TYPE AND SCREEN,30 DAY TYPE AND SCREEN,30 DAY Blood Bank Routine Preoperative examination Paraesophageal hernia Expected: 06/29/2024, Expires: 10/29/2024 [facility] Comment on above: Expected: 06/29/2024 , Expires: 10/29/2024 Start: 05-30-2024 End: 05-30-2024 Patient encounter procedure [facility] [address] Comment on above: Arrived Start: 05-15-2024 End: 05-15-2024 Patient encounter procedure 05/15/2024 10:00 AM EST [facility] [address] [place] [address] Latrell Jack MD [address] [place] [address] [facility] Start: 04-29-2024 End: 04-29-2024 Patient encounter procedure 04/29/2024 11:00 AM EDT Office Visit General Surgery [address] [address] Xavier Boyd MD [address] [place] [address] Hiatal Hernia General Surgery Comment on above: Hiatal Hernia Start: 04-11-2024 End: 04-11-2024 Patient encounter procedure 04/11/2024 9:00 AM EDT Office Visit [facility] [address] [address] [place] [phone] [facility] Start: 03-26-2024 End: 03-26-2024 Patient encounter procedure 03/26/2024 2:30 PM EDT Office Visit [facility] [address] [address] [place] [phone] Mao Morrow, PhD [address] [place], [place] [id number] Arrived [facility] Comment on above: Arrived Start: 03-25-2024 End: 03-25-2024 Professional / ancillary services management 03/25/2024 8:45 AM EDT Ancillary Procedure [facility] [address] [place] [phone] [facility] [address] Start: 03-19-2024 End: 03-19-2024 Patient encounter procedure 03/19/2024 2:00 PM EDT Office Visit [facility] [address] [address] [place] [phone] Mao Morrow, PhD [address] [place] [address] [facility] Start: 03-10-2024 Covid-19 Vaccine ( season) Covid-19 Vaccine ( season) [facility] Start: 03-10-2024 Covid-19 Vaccine ( season) Covid-19 Vaccine ( season) [facility] Start: 03-10-2024 Influenza vaccination Influenza Vacc ine (#1) [facility] Start: 03-07-2024 End: 03-07-2025 Cobalamin (Vitamin B12) [Mass/volume] in Serum or Plasma Vitamin B12 Lab Routine Memory loss Expected: 03/07/2024 (Approximate), Expires: 03/07/2025 [facility] Comment on above: Expected: 03/07/2024 (Approximate), Expires: 03/07/2025 Start: 03-07-2024 End: 03-07-2025 EEG awake or drowsy EEG awake or drowsy Neurology Routine Memory loss Expected: 03/07/2024 (Approximate), Expires: 03/07/2025 [facility] Work Phone: Comment on above: Expected: 03/07/2024 (Approximate), Expires: 03/07/2025 Start: 03-07-2024 End: 03-07-2025 Folate [Mass/volume] in Serum or Plasma Folate Lab Routine Memory loss Expected: 03/07/2024 (Approximate), Expires: 03/07/2025 [facility] Comment on above: Expected: 03/07/2024 (Approximate), Expires: 03/07/2025 Start: 03-07-2024 End: 03-07-2025 MR Brain WO contrast MR brain wo contrast Imaging Routine Memory loss Expected: 03/07/2024, Expires: 03/07/2025 [facility] Comment on above: Expected: 03/07/2024 , Expires: 03/07/2025 Start: 03-07-2024 End: 03-07-2025 Thyrotropin [Units/volume] in Serum or Plasma TSH Lab Routine Memory loss Expected: 03/07/2024 (Approximate), Expires: 03/07/2025 [facility] Healthcare Comment on above: Expected: 03/07/2024 (Approximate), Expires: 03/07/2025 Start: 03-07-2024 End: 03-07-2024 Patient encounter procedure 03/07/2024 11:30 AM EDT Office Visit [facility] [address] [place] [address] Diomedes Fitzgerald DO [address] [place] [id number] 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CMS/HCC) [facility] [address] [facility] Comment on above: 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CMS /HCC) Start: 02-09-2024 End: 02-09-2024 Patient encounter procedure 02/09/2024 9:45 AM EDT Office Visit [facility] [address] [place] [address] Latrell Jack MD [address] [place] [address] [facility] Start: 08-11-2023 End: 08-11-2024 Basic metabolic 1998 panel - Serum or Plasma Basic metabolic panel Lab Routine Encounter for long-term (current) use of medications Expected: 08/11/2023 (Approximate), Expires: 08/11/2024 [facility] Comment on above: Expected: 08/11/2023 (Approximate), Expires: 08/11/2024 Start: 08-11-2023 End: 08-11-2024 CBC W Auto Differential panel - Blood CBC and differential Lab Routine Encounter for long-term (current) use of medications Expected: 08/11/2023 (Approximate), Expires: 08/11/2024 [facility] Comment on above: Expected: 08/11/2023 (Approximate), Expires: 08/11/2024 Start: 08-11-2023 End: 08-11-2024 Hemoglobin A1c measurement Hemoglobin A1c Lab Routine Morbid obesity due to excess calories (CMS/HCC) Expected: 08/11/2023 (Approximate), Expires: 08/11/2024 [facility] Work Phone: Comment on above: Expected: 08/11/2023 (Approximate), Expires: 08/11/2024 Start: 08-11-2023 End: 08-11-2024 Hepatic function 2000 panel - Serum or Plasma Hepatic function panel Lab Routine Encounter for long-term (current) use of medications Expected: 08/11/2023 (Approximate), Expires: 08/11/2024 [facility] Comment on above: Expected: 08/11/2023 (Approximate), Expires: 08/11/2024 Start: 08-11-2023 End: 08-11-2024 Lipid 1996 panel - Serum or Plasma Lipid panel Lab Routine Dyslipidemia (CMS/HCC) Expected: 08/11/2023 (Approximate), Expires: 08/11/2024 [facility] Comment on above: Expected: 08/11/2023 (Approximate), Expires: 08/11/2024 Start: 08-11-2023 End: 08-11-2024 Thyrotropin [Units/volume] in Serum or Plasma TSH Lab Routine Morbid obesity due to excess calories ([facility]/HCC) Expected: 08/11/2023 (Approximate), Expires: 08/11/2024 [facility] Comment on above: Expected: 08/11/2023 (Approximate), Expires: 08/11/2024 Start: 08-11-2023 End: 08-11-2023 Patient encounter procedure 08/11/2023 9:45 AM EST Office Visit [facility] [address] [place] [id number] Latrell Jack MD [address] [place] [phone] Arrived [facility] Comment on above: Arrived Start: 07-10-2023 Advance Directive Discussion Advance Directive Discussion [facility] Start: 03-10-2023 Influenza vaccination Influenza Vacc ine (#1) [facility] Start: 09-21-2016 Screening for osteoporosis Bone Density Screening [facility] Start: 09-21-2001 Shingrix Vaccine (1 of 2) Shingrix Vaccine (1 of 2) [facility] Start: 09-21-1996 Diabetes Screening Diabetes Screenin g [facility] Start: 09-21-1996 Lipid panel Lipid Screening [facility] Start: 09-21-1996 Screening for malign ant neoplasm of colon [facility] Start: 1991 Screening for malign ant neoplasm of breast [facility] Start: 09-21-1981 Zoledronic acid therapy Alpha- 1 Antitrypsin Deficiency Screening [facility] Start: 09-21-1970 Urine microalbumin profile DTaP,Tdap,Td Vaccine (1 - Tdap) [facility] Start: 09-21-1969 Annual PCP Team Dentist Attendant julio Disease Visit Annual PCP Team Chronic Disease Visit [facility] Start: 09-21-1969 Anxiety Screening Anxiety Screening [facility] Start: 09-21-1969 BP Controlled (<130/80) BP Controlle d (<130/80) [facility] Start: 09-21-1969 Depression Screening Depression Scre willa [facility] Start: 09-21-1969 Hepatitis C screening Hepatitis C Sc swathi [facility] Start: 09-21-1969 Spirometry Spirometry [facility] Start: 1950 Medicare Annual Well ness (AWV) Medicare Annual Wellness (AWV) [facility] Healthcare Start: 1950 Screening for malign ant neoplasm of colon [facility] Start: 1950 Screening for malign ant neoplasm of lung Lung Cancer Screening Shared Decision Making [facility] End: 05-04-2025 ECG COMPLETE ECG COMPLETE ECG Routine Preoperative examination Paraesophageal hernia 1 Occurrences starting 05/06/2024 until 05/04/2025 [facility] Comment on above: 1 Occurrences starti ng 05/06/2024 until 05/04/2025 Laps rpr paraesphgl hrna incl fundplsty w/mesh LAPAROSCOPIC RPR PARAESOPHAGEAL HERNIA W/O FUNDOPLASTY W/ MESH Preoperative examination Paraesophageal hernia [facility] Patient Education Depression in adults - Discharge instructions [facility] Instructions Know your Meds [facility] Work Phone: Patient referral [facility] Work Phone: REFER FOR ADMIT INTERVIEW REFER FOR ADMIT INTERVIEW Procedures Routine Preoperative examination Paraesophageal hernia Ordered: 05/06/2024 [facility] Work Phone: Comment on above: Ordered: 05/06/2024 End: 08-23-2025 XR Chest PA and Lateral XR CHEST 2V FRONTAL/LAT Radiology Routine Pre-op evaluation Chronic obstructive pulmonary disease, unspecified COPD type (HCC) CHENEY (dyspnea on exertion) 1 Occurrences starting 07/23/2024 until 08/23/2025 [facility] Work Phone: Comment on above: 1 Occurrences starti ng 07/23/2024 until 08/23/2025 XR Chest PA and Lateral XR CHEST 2V FRONTAL/LAT Radiology Routine Pre-op evaluation Chronic obstructive pulmonary disease, unspecified COPD type (HCC) CHENEY (dyspnea on exertion) 07/23/2024 1:58 PM EST [facility] Immunizations Immunization Date Immunization Notes Care Provider Keren rojas 05-15-2024 influenza virus vacc ine, unspecified formulation Latrell Jack MD Work Phone: [facility] 04-09-2023 influenza virus vacc ine, unspecified formulation Pa NILL [facility] 05-03-2022 SARS-CoV-2 (COVID-19 ) [id number] [facility] N[facility] 05-03-2022 influenza virus vacc ine, unspecified formulation Latrell Jack MD Work Phone: [facility] 11-25-2021 pneumococcal conjuga te vaccine, 13 valent Diomedes Fitzgerald DO Work Phone: [facility] 04-12-2021 influenza virus vacc ine, unspecified formulation Leos Sarmini [facility] 04-12-2021 SARS-CoV-2 (COVID-19 ) mRNA BNT-162b2 vax Pa NILL [facility] Comment on above: Result Comment: 2023: [id number] 09-14-2020 SARS-CoV-2 (COVID-19 ) mRNA BNT-162b2 vax Pa NILL [facility] Comment on above: Result Comment: 2023: [id number] 08-27-2020 SARS-CoV-2 (COVID-19 ) mRNA BNT-162b2 vax Pa NILL [facility] Comment on above: Result Comment: 2023: [id number] 06-16-2020 influenza virus vacc ine, unspecified formulation Leos Sarmini [facility] 05-16-2019 influenza virus vacc ine, unspecified formulation Leos Sarmini [facility] 05-16-2019 pneumococcal polysaccharide vaccine, 23 valent Leos Sarmini [facility] 05-12-2018 influenza virus vacc ine, unspecified formulation Leos Sarmini [facility] 01-31-2018 pneumococcal conjuga te vaccine, 13 valent Leos Sarmini [facility] 05-10-2016 influenza virus vacc ine, unspecified formulation Leos Sarmini [facility] 04-16-2015 influenza virus vacc ine, unspecified formulation Leos Sarmini [facility] Payers Date Payer Category Payer Self-pay 2016 Private Health Insurance [id number] 2016 Medicare [id number] 2016 Unknown 1959 Medicare [id number] 1959 Private Health Insurance [id number] 1951 Unknown [id number] 2.16.84 0.1.304767.3.579.2.593 1951 Unknown [id number] 2.16.84 0.1.351045.3.579.2.593 1951 Unknown [id number] 2.16.84 0.1.198244.3.579.2.593 1951 Unknown [id number] 2.16.84 0.1.304938.3.579.2.593 1951 Unknown [id number] 2.16.84 0.1.259571.3.579.2.593 1951 Unknown [id number] 2.16.84 0.1.745014.3.579.2.593 1951 Unknown [id number] 2.16.84 0.1.604326.3.579.2.593 1951 Unknown [id number] 2.16.8 40.1.279978.3.579.2.727 1951 Unknown [id number] 2.16.8 40.1.307099.3.579.2.727 1951 Unknown [id number] 2.16.8 40.1.261216.3.579.2.727 1951 Unknown [id number] 2.16.8 40.1.710745.3.579.2.727 1951 Unknown [id number] 2.16.8 40.1.479643.3.579.2.727 1951 Unknown [id number] 2.16.8 40.1.437183.3.579.2.727 1951 Unknown [id number] 2.16.8 40.1.678191.3.579.2.727 1951 Unknown [id number] 2.16.8 40.1.508405.3.579.2.727 1951 Unknown [id number] 2.16. 840.1.582867.3.579.2.196 1951 Unknown [id number] 2.16. 840.1.346982.3.579.2.196 1951 Unknown [id number] 2.16. 840.1.453520.3.579.2.196 1951 Unknown [id number] 2.16. 840.1.871113.3.579.2.196 1951 Unknown [id number] 2.16. 840.1.139919.3.579.2.196 1951 Unknown [id number] 2.16. 840.1.581182.3.579.2.196 1951 Unknown [id number] 2.16.8 40.1.489752.3.579.2.1259 1951 Unknown [id number] 2.16.84 0.1.525236.3.579.2.1259 1951 Unknown [id number] 2.16.84 0.1.441505.3.579.2.9 1951 Unknown [id number] 2.16.84 0.1.944945.3.579.2.9 1951 Unknown [id number] 2.16.84 0.1.110158.3.579.2.1258 1951 Unknown [id number] 2.16.84 0.1.894873.3.579.2.1258 1951 Unknown [id number] 2.16.84 0.1.421219.3.579.2.9 1951 Unknown [id number] 2.16.84 0.1.592022.3.579.2.125 1951 Unknown [id number] 2.16.84 0.1.701324.3.579.2.1259 1951 Unknown [id number] 2.16.84 0.1.177786.3.579.2.1259 Unknown [id number] 2.16.8 40.1.890867.3.579.2.531 Unknown [id number] 2.16.8 40.1.588162.3.579.2.531 Social History Date Type Detail Facility Start: 08-05-2023 End: 05-30-2024 Tobacco smoking status WIIS Ex-smoker [facility] Start: 07-10-1967 End: 01-08-2012 History of tobacco use Current smoker [facility] Start: 07-10-1967 End: 01-08-2012 History of tobacco use Cigarette Smoker [facility] Start: 08-05-2023 End: 02-02-2024 Cigarettes smoked current (pack per day) - Reported 1 [facility] Healthcare Start: 08-05-2023 End: 02-02-2024 Tobacco use panel [facility] Start: 1950 Sex Assigned At Not on file N [facility] Start: 08-11-2023 End: 05-30-2024 Tobacco use and exposure Smokeless tobacco non-user [facility] Tobacco smoking status Never [facility] Start: 03-07-2024 End: 02-24-2025 Alcoholic beverage intake [...] per day [facility] Tobacco smoking stat [facility] Tobacco smoking consumption unknown [facility] Start: 04-23-2024 Gender identity Identifies as female gender (finding) [facility] Start: 07-23-2024 End: 08-07-2024 Alcoholic beverage intake Ex-drinker (finding) [facility] Start: 07-23-2024 Tobacco Comment Age 16 - 60, 1 /2 - 2 PPD, quit while at 1 PPD [facility] How often do you nee d to have someone help you when you read instructions, pamphlets, or other written material from your doctor or pharmacy [SILS] Sometimes [facility] Sexual Orientation [facility] Start: 09-04-2018 End: 12-16-2024 Sex Female (finding) [facility] Start: 1950 Sex Assigned At Female F [facility] Medical Equipment Procedure Code Equipment Code Equipment Original Text Equipment Identifier Dates Sabine Thk1.65mm P tfe 4x.5in Cardiovascular Sterile - [id number] Start: 07-24-2024 Goals Date Patient Goal Desired Activity /State Functional Status Date Assessment Result Facility 12-16-2024 Functional status Patient at Baseline [facility] Work Phone: 03-20-2024 Functional Status N/A [facility] 02-26-2024 Functional Status N/A [facility] 10-13-2023 Functional Status N/A [facility] Mental Status Date Assessment Result Facility 12-16-2024 Cognitive function Cognitive Sta tus Patient at Baseline [facility] Work Phone: Clinical Notes 09-10-2021 to [...] Bilateral screening mammogram documented in this encounter [facility] 12-16-2024 Discharge summary [facility] 12-15-2024 Progress note Note Date/Time December 15, 2024 10:52am [facility] [address] [place] [address] Psychiatry Progress Note Signed Patient: Shey Obrien MR#: [id number] : 1950 Acct:[id number] Age/Sex: 74 / F Adm Date: 5 Loc: Room: [address] [place] [address] Type : ADM IN Attending Dr: Erik [...] signed by DO MALICK Tee> 12/15/24 0943 [facility] Work Phone: 1(470) 731-453106-08-2025 [place] [address] Psychiatry Progress Note Signed Patient: Shey Obrien MR#: [id number] : 1950 Acct:[id number] Age/Sex: 74 / F Adm Date: 5 Loc: 1S Room: [address] [place] [address] Type : ADM IN Attending Dr: Erik [...] 0941 Signed By: 12/15/24 1052 12/15/24 0943 [facility]06-07-2025 Progress note Author Erik aguilar [facility] Note Date/Time December 14, 2024 2:23p m [facility] [address] [place] [address] Psychiatry Progress Note Signed Patient: Shey Obrien MR#: [id number] : 1950 Acct:[id number] Age/Sex: 74 / F Adm Date: 5 Loc: 1S Room: [address] [place] [address] Type : ADM IN Attending Dr: Erik [...] discharge. Documented By: Erik Kim MD 5 1308 Signed By: <Electronically signed by Erik Kim MD> 12/14/24 [facility]4 [facility] Work Phone: 1(852) 372-661406-07-2025 [place] [address] Psychiatry Progress Note Signed Patient: Shey Obrien MR#: [id number] : 1950 Acct:[id number] Age/Sex: 74 / F Adm Date: 5 Loc: Room: [address] [place] [address] Type : ADM IN Attending Dr: Erik [...] discharge. Documented By: Erik Kim MD 5 [id number] Signed By: 12/14/24 1423 [facility]06-06-2025 History and physical note Author Erik aguilar [facility] Note Date/Time December 13, 2024 10:06 am [facility] [address] [place] [address] Psychiatry H&P Signed Patient: Shey Obrien MR#: [id number] : 1950 Acct:[id number] Age/Sex: 74 / F Adm Date: 5 Loc: 1S Room: 9Z2204-2 Type: ADM IN Attending Dr: Erik Kim [...] boyfriend Employment: retired former [employer] worker in [employer] Relationships: close, supportive relationship with family in [...] strong, equal bilaterally. CNXII: Tongue protrusion midline [facility] Medical History (Updated 12/13/24 @ 10:06 by [...] discharge. Documented By: Erik Kim MD 5 2062 Signed By: <Electronically signed by Erik Kim MD> 12/13/[address] [place] [address] Work Phone: 1(442) 531-489906-06-2025 [place] [address] Psychiatry H&P Signed Patient: Shey Obrien MR#: [id number] : 1950 Acct:[id number] Age/Sex: 74 / F Adm Date: 5 Loc: Room: [address] [place] [address] Type: ADM IN Attending Dr: Erik Kim [...] boyfriend Employment: retired former [employer] worker in [employer] Relationships: close, supportive relationship with family in [...] strong, equal bilaterally. CNXII: Tongue protrusion midline [facility] Medical History (Updated 12/13/24 @ 10:06 by [...] MD 5 0841 Signed By: 12/13/24 1006 [facility]06-05-2025 Chief complaint+Reason for visit Narrative* Chief Complaint Admit Date Mental Evaluation. December 12, 2024 6:22p m Mental Evaluation. December 13, 2024 8:41a m Reason for Visit Admit Date Major depressive disorder, recurrent, mo derate December 12, 2024 6:22pm [facility] Work Phone: 1(826) 437-430906-05-2025 Chief complaint+Reason for visit Narrative * Chief Complaint Admit Date Mental Evaluation. December 12, 2024 6:22p m Mental Evaluation. December 13, 2024 8:41a m Reason for Visit Admit Date Major depressive disorder, recurrent, mo derate December 12, 2024 6:22pm Primary insomnia February 03, 2025 3:29 pm Obstructive sleep apnea syndrome February 032024 3:29pm [facility] Work Phone: 1(609) 509-136706-05-2025 Evaluation note* Diagnosis Onset Date Resolution Status Admit Date Major depressive disorder, recurrent, moderate acute December 12 6:22pm [facility] Work Phone: 1(312) 432-498206-05-2025 Evaluation note* Diagnosis Onset Date Resolution Status Admit Date Major depressive disorder, recurrent, moderate acute December 12 6:22pm Primary insomnia acute January 3:29pm Obstructive sleep apnea syndrome noneactive February 03, 2025 3:29pm [facility] Work Phone: 1(534) 476-157406-05-2025 Evaluation + Plan noteExtracted from: Title:ED Note Author:Elmer Kohli DO Date: Suicidal ideation (R45.851: Suicidal ideations) Orders: CBC w/ Auto Diff Communication Order Comprehensive Metabolic Panel Consult to Mental Health Drug Screen Urine ECG 12 Lead Adult eGFR Ethanol Level UA with Cult Rflx Urine Culture Diagnostic Tests Pending * Urine Culture 12/12/24 [facility] 05-28-2025 History of Present illness Narrative* Latrell Jack MD - 12/04/2024 2:25 PM EDTAssociated Problem(s): Degenerative lumbar spinal stenosis Recent flare and increased pain. Treat with prednisone. Use robaxin for spasms and norco PRN. Follow up with pain management next week as scheduled. * Latrell Jack MD - 12/04/2024 2:24 PM EDTAssociated Problem(s): COPD (chronic obstructive pulmonary disease) ([facility]) SOB stable and continue albuterol nebulized PRN. Script for new machine to patient. * Latrell Jack MD - 12/04/2024 1:30 PM EDT Images from the original note were not included. Subjective Patient ID: Sehy Obrien is a 74 y.o. female who [...] This Visit COPD (chronic obstructive pulmonary disease) (CMS/[facility]) SOB stable and continue albuterol nebulized PRN. Script for new machine to patient. Degenerative lumbar spinal stenosis - Primary Recent flare and increased pain. Treat with prednisone. Use robaxin for spasms and norco PRN. Follow up with pain management next week as scheduled. Relevant Medications methocarbamol (Robaxin) 750 MG tablet predniSONE (Deltasone) 50 MG tablet HYDROcodone-acetaminophen ([place]der[place]) 5-325 MG tablet documented in this encounterMissouri Rehabilitation [id number] History of Present illness Narrative* Latrell Jack MD - 08/27/2024 11:05 AM ESTAssociated Problem(s): 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CMS/[facility]) Follow with neurology. * Latrell Jack MD [...] 11:03 AM ESTAssociated Problem(s): Essential hypertension, benign ([facility]) BP controlled and monitor PRN. * Latrell Jack MD - 08/27/2024 11:03 AM ESTAssociated Problem(s): COPD (chronic obstructive pulmonary disease) ([facility]) Symptoms stable and continue spiriva. Use albuterol PRN. * Latrell Jack MD - 08/27/2024 11:03 AM ESTAssociated Problem(s): Class 2 severe obesity due to excess calories with serious comorbidity and body mass index (BMI) of 36.0 to 36.9 in adult (CMS/[facility]) Weight loss indicated. * Latrell Jack MD [...] Items Addressed This Visit Essential hypertension, benign ([facility]/HCC) BP controlled and monitor PRN. Relevant Orders Basic metabolic panel COPD (chronic obstructive pulmonary disease) ([facility]/HCC) Symptoms stable and continue spiriva. Use albuterol PRN. Dyslipidemia ([facility]/HCC) Relevant Orders Lipid panel Encounter for long-term (current) use of medications Relevant Orders CBC and differential Hepatic function panel Prediabetes Relevant Orders Hemoglobin A1c Class 2 severe obesity due to excess calories with serious comorbidity and body mass index (BMI) of36.0 to 36.9 in adult (CMS/[facility]) Weight loss indicated. Relevant Orders TSH Medicare annual wellness visit, subsequent - Primary Due for labs. Discussed proper diet and regular aerobic exercise. Need aerobic exercise 5-6 days a week for 30 minutes at a time. Smaller portions and limit total calories. Colonoscopy every 10 years. Tetanus every 10 years. Advised not to smoke. Discussed daily Aspirin therapy. documented in this encounterMissouri Rehabilitation [id number] NoteHNO ID: [id number] Author: KATARZYNA SNYDER APRN.LOG BUNCHER Service: ? Author Type: Nurse Practitioner Type: Progress Notes Filed: 08/07/2024 15:37 Note Text: [facility] Clinic Date: August [...] chest to be completed prior to appointment Katarzyan Snyder, MSN, LOG B[facility]CHER [facility] History of Present illness Narrative* Katarzyna Snyder APRN.SKYLA - 08/07/2024 2:14 PM EST [facility] Clinic Date: August [...] completed prior to appointment Katarzyna Snyder, MSN, LOG BUNCHER August 07, 2024 * Olga Lidia Blake [...] Temperature: No Drains: No [facility]25 NoteHNO ID: [id number] Author: OLGA LIDIA BLAKE MA Service: ? Author Type: Behavioral Instructor Type: Progress Notes Filed: 08/07/2024 15:37 Note Text: What is the reason for your visit today? Post op Who is your referring physician? Dr. Snyder Are you having poor oral intake? NO Have you had unintentional weight loss of 15 lbs/7 Kg in the last 3-6 months? NO Bowels: constipated, diarrhea, or regular Wound: clean AND dry Temperature: No Drains: [facility]01-22-2025 Telephone encounter Note* Telephone Encounter - Latrell Jack MD - 07/31/2024 2:25 PM EST Sent to [facility]. [facility] [id number] Miscellaneous Notes* Telephone Encounter - Latrell Jack MD - 07/31/2024 2:25 PM EST Sent to [facility]. * Telephone Encounter - GEO DICK - 07/31/2024 2:20 PM EST Insurance won't cover the extended release ambien. * Telephone Encounter - Sandra Matias - 07/31/2024 1:13 PM EST Patient called and stated that her zolpidem refill was denied. She would like you to call her or the pharmacy. an documented in this encounterMissouri Rehabilitation [id number] Telephone encounter Note* Telephone Encounter - GEO DICK - 07/31/2024 2:20 PM EST Insurance won't cover the extended release ambien. [facility] [id number] Telephone encounter Note* Telephone Encounter - Sandra Matias - 07/31/2024 1:13 PM EST Patient called and stated that her zolpidem refill was denied. She would like you to call her or the pharmacy. an [facility] [id number] NoteHNO ID: [id number] Author: DERREK MARSHALL RN Service: Care Management [...] Obrien DATE: July 26, 2024 TIME: 9:22 [facility]01-16-2025 NoteHNO ID: [id number] Author: DERREK MARSHALL RN Service: Care Management Author Type: Registered Nurse Type: Care Mgt Initial Assessment Filed: 07/25/2024 14:30 Note Text: CARE MANAGEMENT: ASSESSMENT AND DISCHARGE PLAN SERVICE DATE: July 25, 2024 SERVICE TIME: 2:29 PM PCP: Latrell Jack MD Primary Contact: Extended Emergency Contact Information Primary Emergency Contact: Alexandria Cramer Address: [address] [place] [address] [facility] Relation: Relative Admission Status: Inpatient Insurance Provider: MEDICARE A AND B Discharge Planning requested by: Per Department Practice Potential Transition Plans To Be Determined Advance Directives Current Advance Directive: None Maintenance Apprentice Attempted to Assist with AD Completion: Yes Action: Education Provided [place] of Choice Explained: [place] of [place] Given: No Reason Not Given: [...] Obrien DATE: July 25, 2024 TIME: 2:29 [facility]01-16-2025 NoteHNO ID: [id number] Author: DERREK MARSHALL RN Service: Care Management Author Type: Registered Nurse Type: Care Mgt Progress Note Filed: 07/25/2024 14:28 Note Text: CARE MANAGEMENT: ASSESSMENT AND DISCHARGE PLAN SERVICE DATE: July 25, 2024 SERVICE TIME: 2:28 PM PCP: Latrell Jack MD Primary Contact: Extended Emergency Contact Information Primary Emergency Contact: Alexandria Cramer Address[address] [place] [address] [place] Relation: Relative Admission Status: Inpatient Insurance Provider: MEDICARE A AND B Discharge Planning requested by: Per Department Practice Potential Transition Plans To Be Determined Advance Directives Current Advance Directive: None Maintenance Apprentice Attempted to Assist with AD Completion: Yes Action: Education Provided [place] of [place] Explained: [place] of [place] Given: No Reason Not Given: [...] Obrien DATE: July 25, 2024 TIME: 2:27 [facility]01-16-2025 NoteHNO ID: [id number] Author: YAN MOSER, Naz Service: General Surgery [...] Line Duration Peripheral 07/24/24 0900 [facility] Right Hand 20 Gauge <1 day Peripheral 07/24/24 1111 Left Hand 18 Gauge <1 day SURGERY/PROCEDURE: Procedure(s) and Anesthesia Type: * LAPAROSCOPIC RPR PARAESOPHAGEAL HERNIA W/O FUNDOPLASTY W/ MESH - [facility]01-15-2025 NoteHNO ID: [id number] Author: NENA SEPULVEDA MD Service: General Surgery [...] MD SERVICE DATE: 07/24/24 SERVICE TIME: 7:09 [facility]01-15-2025 NoteHNO ID: [id number] Author: TRIP GRAY RN Service: Nursing Author Type: Registered Nurse Type: Progress Notes Filed: 07/24/2024 18:55 Note Text: [id number] Paged [phone] to notify that patient came up from PACU with a rdz in but no active rdz order. Requesting order to be placed.[facility] 07-24-2024 NoteHNO ID: [id number] Author: TRIP GRAY RN Service: Nursing Author Type: Registered Nurse Type: Progress Notes Filed: 07/24/2024 18:25 Note Text: Admission/Transfer Note PATIENT NAME: Shey Obrien Patient Location: [facility] [address] Room: [facility] Patient admitted from PACU via bed in stable condition. Actions taken: Patient oriented to room, call light function, prescribed activities, Patient rights, and Quiet at night. Patient belongings with patient. This note was completed by: Trip [facility]2024 NoteHNO ID: [id number] Author: BETTY ALLEN APRN.LEGAL CONSULTANT Service: ? 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 LEGAL CONSULTANT: Betty Allen APRN.LEGAL CONSULTANT Performed by: ELIZABETH Indications and Patient Condition Indications for airway management: anesthesia Preoxygenated: yes anesthesia circuit Patient position: reverse Trendelenburg, sniffing and ramp Method: rapid sequence Final Airway Details Final airway type: endotracheal airway Final Endotracheal Airway: ETT Cuffed: yes Successful intubation technique: video laryngoscopy Devices used: [employer] Endotracheal tube insertion site: oral Blade size: #3 ETT size (mm): 7.0 Measured from: lips Measurement (cm): 21 Placement verified by: capnometry Cormack-Lehane Classification: grade I - full view of glottis Number of attempts at approach: 1 Airway not difficult SIGNATURE: Betty Allen APRN.LEGAL CONSULTANT PATIENT NAME: Shey Obrien DATE: July 24, 2024 TIME: 11:23 AM CSN: [id number] NoteHNO ID: [id number] Author: BETTY ALLEN APRN.LEGAL CONSULTANT Service: ? Author Type: Nurse Health Outreach Worker Type: Anesthesia Procedure Notes Filed: 07/24/2024 11:23 Note Text: ANESTHESIOLOGY PROCEDURE NOTE PIV General Information Procedure Start Time/Medication Administration: 07/24/2024 11:11 AM Procedure End Time: 07/24/2024 11:11 AM Patient Location: OR Staffing LEGAL CONSULTANT: Betty Allen APRN.LEGAL CONSULTANT Performed by: ELIZABETH Preparation Sterility Preparation: hand [...] July 24, 2024 TIME: 11:22 AM CSN: [id number] [facility]01-15-2025 NoteHNO ID: [id number] Author: ABDELRAHMAN HE MD Service: General Surgery Author Type: Resident Type: Plan of Care Filed: 07/24/2024 10:30 Note Text: Patient consented for study? Yes STUDY TITLE: MVP Trial: Mesh Vs Pledgets for repair of paraesophageal hernia repair: a randomized, blinded, parallel group trial IRB NO.: #[id number] AEROPLANE PILOT: Willard Ramirez MD COORDINATOR/Research Nurse/Channel Opener Outsoles: Abdelrahman He MD Phone/email: [phone], [email or web address] Consenting was performed in person prior [...] CRITERIA Yes No 1. The patient lacks Spanish language fluency or cannot understand the consent form/study procedures [] [x] 2. The patient is [] [x] 3. The patient has a BMI >45 [] [x] 4. The patient has undergone previous hiatal hernia repair [] [x] 5. The patient will undergo paraesophageal hernia repair with a concurrent bariatric procedure to reduce stomach volume [] [x][facility] 07-23-2024 History of Present illness Narrative* Humera Posey RT(Ortega) - 07/23/2024 2:10 PM EST Radiology Service [...] PATIENT PRESENTS WITH AN IMPLANTABLE OR ATTACHED DRY GOODS INSPECTOR: No RADIOLOGY DEPARTMENT: General X-ray: Exam(s) Completed: Chest X-Ray PERIPHERAL IV DATA: Not applicable SIGNED BY: RT Liu(Ortega) July 23, 2024 1:59 PM documented in this encounterDiley [facility]01-14-2025 NoteHNO ID: [id number] Author: HUMERA POSEY RT (R) Service: Radiology [...] PATIENT PRESENTS WITH AN IMPLANTABLE OR ATTACHED DRY GOODS INSPECTOR: No RADIOLOGY DEPARTMENT: General X-ray: Exam(s) Completed: Chest X-Ray PERIPHERAL IV DATA: Not applicable SIGNED BY: RT Liu(R) July 23, 2024 1:59 [facility]01-14-2025 Instructions* Patient Instructions* Jamil Delacruz PA-C - 07/23/2024 1:27 PM EST Images from the original note were not included. [facility] PATIENT PREOPERATIVE INSTRUCTIONS Dr. Boyd has scheduled you for your procedure at this surgery center: [facility] [place] Scheduling Office: [phone] --[address] [place] [address]. Please read below carefully for your personalized [...] office. If you are currently using a jtqd-yik-cclq injectable or oral medication for diabetes or [...] Procedures: - YOU MUST HAVE A RESPONSIBLE SPECIALTY THERAPIST TAKE YOU HOME. A JIGGER ARTISAN OR JELLY FILTER TENDER CANNOT BE MADE A RESPONSIBLE SPECIALTY THERAPIST. - We recommend that a responsible person [...] call the Monday before. Your surgeon s orthopedic brace maker will tell you what time to call the office. - If you have not reached the departmental orthopedic brace maker by 5 P.M., call [phone] after 5 P.M. the day before your surgery. Please be aware that emergency situations arise, which may delay or change your surgical time. If this happens, we will notify you as soon as possible and regret any inconvenience. If you already have an Advance Directive, please fax a copy to [phone] or email to for it to be [...] day. Jamil Delacruz PA-C documented in this encounterDiley [facility] Center01-14-2025 History and physical note * [...] pain, CHF, congenital heart defect, DVT/PE, recent ND and murmur/valvular heart disease. GI: See HPI. [...] 404 QTC Calculation (Bazett) 423 Calculated P [place] 32 Calculated R [place] 14 Calculated T [place] 54 Impression NORMAL SINUS RHYTHM NORMAL ECG No results found for this or any previous visit (from the past 53163 hour(s)). Instructions Given to Patient: Instructions located in the after visit summary. Patient given verbal and written preop instructions and voices comprehension and compliance. SIGNATURE: Jamil Delacruz PA-C PATIENT NAME: Shey Obrien DATE: July 23, 2024 TIME: 1:07 PM PAGER/CONTACT #: [facility]01-14-2025 History and physical note* Jamil [...] pain, CHF, congenital heart defect, DVT/PE, recent ND and murmur/valvular heart disease. GI: See HPI. [...] 404 QTC Calculation (Bazett) 423 Calculated P [place] 32 Calculated R [place] 14 Calculated T [place] 54 Impression NORMAL SINUS RHYTHM NORMAL ECG No results found for this or any previous visit (from the past 37503 hour(s)). Instructions Given to Patient: Instructions located in the after visit summary. Patient given verbal and written preop instructions and voices comprehension and compliance. SIGNATURE: Jamil Delacruz PA-C PATIENT NAME: Shey Obrien DATE: July 23, 2024 TIME: 1:07 PM PAGER/CONTACT #: documented in this encounterDiley Ridge Medical Center12-23-2024 Telephone encounter Note * Telephone Encounter - Trip Lieberman MA - 07/01/2024 1:22 PM EST Sending this to Dr Jack [facility] CenterOyuhktpzjl18-23-5054 Miscellaneous Notes* Telephone Encounter - Trip Lieberman MA - 07/01/2024 1:22 PM EST Sending this to Dr Jack * Telephone Encounter - Sandra Arcos NP - 06/29/2024 11:46 AM EST Did we call Dr. Jack's office and let him know that we took over the Aricept. If not can we please. I do not see it documented. Thank you documented in this encounterMissouri Rehabilitation CenterVbmmzebznq53-69-2514 Telephone encounter Note* Telephone Encounter - Sandra Arcos NP - 06/29/2024 11:46 AM EST Did we call Dr. Jack's office and let him know that we took over the Aricept. If not can we please. I do not see it documented. Thank you [facility] CenterAoinpuyjtg31-14-1115 Telephone encounter Note* Telephone Encounter - Cassy Donnelly - 06/13/2024 11:39 AM EST Patient would like her Losartan 50 mg and Pantoprazole 40 mg changed to [facility] insteadof [facility] CenterPzupwtnran83-58-5138 Miscellaneous Notes* Telephone Encounter - Cassy Donnelly - 06/13/2024 11:39 AM EST Patient would like her Losartan 50 mg and Pantoprazole 40 mg changed to [facility] insteadof [facility] documented in this encounterMissouri Rehabilitation CenterUhvssohlxl50-13-6126 History of Present illness Narrative* Latrell Jack [...] 38.9 in adult (CMS/HCC) Weight loss indicated. * Latrell Jack MD [...] index (BMI) of38.0 to 38.9 in adult ([facility]) Weight loss indicated. documented in this encounterMissouri Rehabilitation CenterVymmvxmnjx90-94-6155 NoteHNO ID: [id number] Author: XAVIER BOYD MD Service: ? Author [...] blinded, parallel group trial IRB NO.: #[id number] AEROPLANE PILOT: Pa Praaksh MD COORDINATOR/Research Nurse/Channel Opener Outsoles: Abdelrahman He MD Phone/email: [phone], [email or web address] Consenting was performed in [...] CRITERIA Yes No 1. The patient lacks Spanish language fluency or cannot understand the consent form/study procedures [] [x] 2. The patient is [] [x] 3. The patient has a BMI >45 [] [x] 4. The patient has undergone previous hiatal hernia repair [] [x] 5. The patient will undergo paraesophageal hernia repair with a concurrent bariatric procedure to reduce stomach volume [] [x][facility] 04-29-2024 History of Present illness Narrative* Xavier [...] blinded, parallel group trial IRB NO.: #[id number] AEROPLANE PILOT: Pa Prakash MD COORDINATOR/Research Nurse/Channel Opener Outsoles: Abdelrahman He MD Phone/email: [phone], [email or web address] Consenting was performed in [...] CRITERIA Yes No 1. The patient lacks Spanish language fluency or cannot understand the consent [...] Yan Moser - 04/29/2024 11:16 AM EDT [facility] Abdominal [facility] Health - HISTORY AND [...] Moser MD General Surgery documented in this encounterDiley Ridge Medical Center10-21-2024 NoteHNO ID: [id number] Author: YAN MOSER, ? Service: ? Author Type: Physician Type: Progress Notes Filed: 04/29/2024 12:10 Note Text: [facility] - HISTORY [...] - Consents obtained Yan Moser MD General SurgeryHarrison Community Hospital10-21-2024 Nurse Note* Diomedes Fiore MA - 04/29/2024 10:50 AM EDT What is the reason for your visit today? Consult Who is your referring physician? Dafne Spears Are you having poor oral intake? YES Have you had unintentional weight loss of 15 lbs/7 Kg in the last 3-6 months? NO Bowels: soft, more frequent Wound: none Temperature: No Drains: No [facility]10-21-2024 Nurse Note* Diomedes Fiore MA [...] Temperature: No Drains: No documented in this encounterDiley Ridge Medical Center10-14-2024 Telephone encounter Note * Telephone Encounter - Ashlie Calderon - 04/22/2024 5:32 PM EDT Spoke with PT she state no prior surgeries [facility]10-14-2024 Miscellaneous Notes* Telephone Encounter - Ashlie Calderon - 04/22/2024 5:32 PM EDT Spoke with PT she state no prior surgeries documented in this encounterDiley Ridge Medical Center10-03-2024 History of Present illness Narrative* [...] No history of alcohol/substance abuse. Reformed smoker. [place]osh[place] language Spanish. Completed high school education as well as some college. Described self asa C student. 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 Motor/Speed of Processing: Left-handed. Carton Stapler strength 31st %ile with left-hand, 18th %ile [...] Learning of a word list 58th %ile (4-9-67-10-12), delayed recall 50th %ile. Recognition discriminability 69th [...] of this individual. Please contact me with [employer] at [phone]. documented in this encounterMissouri Rehabilitation CenterCuvzndyiln77-62-2085 NoteEndoscopic Procedure Report - Other Patient: SHEY [...] 1 tab, Oral, Daily Flonase 0.05 mg/inh [place]: 2 spray(s), Nasal, Daily, Refill(s) 0, Dry [...] a day (at bedtime) Flonase 0.05 mg/inh [place] 2 spray(s), Nasal, Daily losartan 25 mg [...] All Problems HTN (hypertension) / SNOMED CT 8616404491 / Confirmed Chronic obstructive pulmonary disease / SNOMED CT 17519089 / Confirmed Insomnia / SNOMED CT 286781790 / Confirmed Seasonal allergic rhinitis / SNOMED CT 752404639 / Confirmed Dyslipidemia / SNOMED CT 3424223798 / Confirmed BMI 39.0-39.9,adult / SNOMED CT 459456806 / Confirmed Morbid obesity / SNOMED CT 281811733 / Confirmed GERD (gastroesophageal reflux disease) / SNOMED CT 737497019 / Confirmed Hiatal hernia / SNOMED CT 622409428 / Confirmed EDWIN (obstructive sleep apnea) / SNOMED CT 711434184 / Confirmed Lower extremity edema / SNOMED CT 808460343 / Confirmed TIA (transient ischemic attack) / SNOMED CT 896766021 / Confirmed Screening for malignant neoplasm of colon / SNOMED CT 118143734 / Confirmed Dysphagia / SNOMED CT 98716819 / Confirmed Histories Past Medical History: Resolved Hernia (554830412): Resolved. Sleep apnea (772628439): Resolved. Family History: Father Alcoholism Primary malignant neoplasm of lung COPD Mother Cardiac arrest Alzheimer's disease Procedure history: Colonoscopy (384867825) on 10/13/2023 at 73 Years. ORIF - Open reduction of fracture of ankle with internal fixation (646671017728817). Meniscal repair (962532097). Tonsillectomy (277356166). Hand tendon repaired (512542582). Social History Social & Psychosocial Habits Alcohol [...] NTND Impression and Plan Impression: DYSPHAGIA Plan: -EGSelect Medical Specialty Hospital - AkronComment on above:Result Comment: wrong folder Electronically Signed By: Yovanny OLIVO, Dafne Torres\.br\Date and Time Signed: 03/20/24 12:47 [id number] History of Present illness Narrative* Mao Morrow, [...] No history of alcohol/substance abuse. Reformed smoker. [place] language Spanish. Completed high school education as well as some college. Describes itself as a C student. 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 Please contact me with [employer] at [phone]. documented in this encounterMissouri Rehabilitation CenterRugcvkrsap83-22-3499 Hospital Discharge instructions Patient Education 03/20/2024 13:07:59 [...] Follow these instructions at home: Medicines Take dpxa-cku-pkjeynr and prescription medicines only as told by [...] or drinks. ?Garlic or onions. ?Spicy foods. ?Buhler fruits. ?Tomato-based foods. ?Fatty or fried foods. [...] provider. Document Revised: 01/09/2023 Document Reviewed: 01/09/2023 [employer] Patient Education 2023 Phase III Development. 03/20/2024 13:07:56 Gastritis, Adult, Yfeb-az-Pnck Gastritis, Adult Gastritis is irritation and swelling [...] Follow these instructions at home: Medicines Take xnev-sgi-wrotiwk and prescription medicines only as told by [...] right away. Call your local emergency services ([address] [place] Do not wait to see [...] provider. Document Revised: 10/30/2021 Document Reviewed: 10/30/2021 [employer] Patient Education 2023 Phase III Development. 03/20/2024 13:07:48 Hiatal Hernia Hiatal Hernia A [...] reduce GERD symptoms. Medicines. These may include: ?Fuug-rau-xdvlmnu antacids. ?Medicines that make your stomach empty [...] may include: ?Fatty foods, like fried foods. ?Buhler fruits, like oranges or lemon. ?Other foods [...] Do not drink alcohol. General instructions Take npuh-ron-frqzwoo and prescription medicines only as told by [...] provider. Document Revised: 08/23/2022 Document Reviewed: 08/23/2022 [employer] Patient Education 2023 [employer] 03/20/2024 13:07:46 Endoscopy, Care After Procedure [facility] ([facility] Endoscopy Care After Procedure Please read the instructions outlined below and refer to this sheet in the next few weeks. These discharge instructions provide you with general information on caring for yourself after you leave theoss health. Your doctor may also give you [...] 02/07/2005 Document Re-Released: 12/18/2006 ExitCare Patient Information 2010 [employer] Follow Up Care 02/26/2024 09:52:05 With:Yovanny OLIVO, SENAIT Sifuentes, [facility] Address: When: Unknown Comments:Call for any problems. Office will call to schedule follow up appointment [facility] 09-11-2024 Evaluation + Plan note Future Scheduled Tests Radiology* XR Esophagus 03/20/24 [facility] 09-11-2024 NotePatient Education - Text Endoscopy Care After Procedure Please read the instructions outlined below and refer to this sheet in the next few weeks. These discharge instructions provide you with general information on caring for yourself after you leave theoss health. Your doctor may also give you [...] blood. Document Released: 02/07/2005 Document Re-Released: 12/18/2006 [employer]? Patient Information ?2009 [employer] Gastroenterology Hiatal Hernia A hiatal hernia occurs [...] symptoms. ? Medicines. These may include: ? Vmtd-avw-bqojdxf antacids. ? Medicines that make your stomach [...] ? Avoid putting pressu (more content not included)...[facility] 03-20-2024 NoteEndoscopic Procedure Report - Other [...] Procedure images: Rec1_hd_video___49_155.jpg Rec1_hd_video____35_581.jpg Rec1_hd_video___25_745.jpg Rec1_hd_video___15_326.jpg Rec1_hd_video___14_566.jpg Rec1_hd_video___01_833.jpg . Post-Procedure Complications: none. Estimated blood [...] if surgery referral is indicated, will be orderedMarietta Memorial HospitalComment on above:Result Comment: Electronically Signed By: Yovanny OLIVO, Dafne Torres\.br\Date and Time Signed: 03/20/24 12:58 EDTOther Comment: Missing Attachment - attachment storage system not supported [id number] Can be viewed in source systemMissing Attachment - attachment storage system not supported [id number] Can be viewed insource systemMissing Attachment - attachment storage system not supported 5139073 Can be viewed in source systemMissing Attachment - attachment storage system not supported 0925688 Can be viewed in source systemMissing Attachment - attachment storage system not supported 7366823 Can be viewed in source systemMissing Attachment - attachment storage system not supported 2544862 Can be viewed in source [id number] NoteEndoscopic Procedure Report - Other Patient: SHEY [...] 1 tab, Oral, Daily Flonase 0.05 mg/inh [place]: 2 spray(s), Nasal, Daily, Refill(s) 0, Dry [...] a day (at bedtime) Flonase 0.05 mg/inh [place] 2 spray(s), Nasal, Daily losartan 25 mg [...] All Problems HTN (hypertension) / SNOMED CT 1567474344 / Confirmed Chronic obstructive pulmonary disease / SNOMED CT 70041522 / Confirmed Insomnia / SNOMED CT 510319171 / Confirmed Seasonal allergic rhinitis / SNOMED CT 950610729 / Confirmed Dyslipidemia / SNOMED CT 8840836508 / Confirmed BMI 39.0-39.9,adult / SNOMED CT 085628950 / Confirmed Morbid obesity / SNOMED CT 698782382 / Confirmed GERD (gastroesophageal reflux disease) / SNOMED CT 043863810 / Confirmed Hiatal hernia / SNOMED CT 449809672 / Confirmed EDWIN (obstructive sleep apnea) / SNOMED CT 661192715 / Confirmed Lower extremity edema / SNOMED CT 486315995 / Confirmed TIA (transient ischemic attack) / SNOMED CT 907087081 / Confirmed Screening for malignant neoplasm of colon / SNOMED CT 655309869 / Confirmed Dysphagia / SNOMED CT 62457302 / Confirmed Histories Past Medical History: Resolved Hernia (685148127): Resolved. Sleep apnea (478604152): Resolved. Family History: Father Alcoholism Primary malignant neoplasm of lung COPD Mother Cardiac arrest Alzheimer's disease Procedure history: Colonoscopy (100745419) on 10/13/2023 at 73 Years. ORIF - Open reduction of fracture of ankle with internal fixation (777991543246397). Meniscal repair (825565846). Tonsillectomy (311365728). Hand tendon repaired (955671386). Social History Social & Psychosocial Habits Alcohol [...] NTND Impression and Plan Impression: DYSPHAGIA Plan: -[facility] ClinicComment on above:Result Comment: Electronically Signed By: Yovanny OLIVO, Dafne Torres\.br\Date and Time Signed: 03/20/24 12:47 [id number] History of Present illness Narrative* Diomedes Fitzgerald, DO - 03/07/2024 11:30 AM EDT Images [...] Brother Parkinsonism Sibling Alzheimer's disease Father's Sister Kattykeyla Lisain Social History Tobacco Use Smoking status: Former [...] was counseled on the risks of stroke, ND, and sudden with EDWIN, along with the [...] instructions Return to clinic: documented in this encounterMissouri Rehabilitation CenterRijbwgomjf21-71-6081 Note [id number] Surgical Hospital at [facility]woods [facility]2023 Evaluation + Plan noteExtracted from: Title:ANES Post-operative Note - General Author: Shaji Bethea Jr., DO Date:10/13/23 Plan Transfer/Discharge: Transfer/Discharge Discharge when meets criteria ( From PACU to Ambulatory Surgery Unit, and To home ). Extracted from: Title:ANES Pre-operative Note - Endo Author:Shaji Mendoza Jr., DO Date:10/13/23 Plan [place] [employer] of Anesthesiologists (ASA) physical status classification: Class III. Anesthetic Preoperative Plan: Anesthesia General, and -TIVA. [facility]04-05-2024 Hospital Discharge instructions Patient Education 10/13/2023 09:31:42 Colonoscopy, Care After Surgery Salam (CUSTOM) Colonoscopy Care After Surgery Please read the instructions outlined below and refer to this sheet in the next few weeks. These discharge instructions provide you with general information on caring for yourself after you leave theoss health. Your doctor may also give you [...] Up Care 09/12/2023 10:17:58 With:Pa WEBB Address: [address] [place] [address] [place], [facility] [address] [address]- Business (1) When: only if needed [facility]04-05-2024 NotePatient: SHEY OBRIEN Age: 73 years Sex: Female : 1950 Associated Diagnoses: None Author: Pa WEBB MD Subjective no changes to & [facility] CenterComment on above:Result Comment: Electronically Signed By: Pa WEBB MD\.br\Date and Time Signed: 10/13/23 09:45 [id number] NoteChief Complaint consultation for colonoscopy HPI Staff [...] a day (at bedtime) Flonase 0.05 mg/inh [place], 2 spray(s), Nasal, Daily losartan 25 mg [...] Alcoholism: Father. Alzheimer's di (more content not included)...[facility]:Result Comment: Electronically Signed By: TRACEY OLIVO, Pa Lynn\Date and Time Signed: 09/12/23 10:16 [id number] History of Present illness Narrative* Latrell Jack [...] referral to General Surgery documented in this encounter[facility] [id number] NoteEXAMINATION: XR CHEST 1 V HISTORY: SHORTNESS [...] Electronically authenticated by: MEHNAZ SANTIAGO Date: 2021-11-02 16:39[facility]03-04-2022 NotePROCEDURE: XR ANKLE RT MIN 3 [...] Electronically authenticated by: WILLARD ANAND Date: 2021-09-10 09:02[facility]03-04-2022 NotePROCEDURE: XR ANKLE RT 2V COMPARISON: 03/02/2020. HISTORY: Pain FINDINGS: 35 seconds of fluoroscopy. 5 fluoroscopic images Interval removal of internal fixation hardware. Components of 2 fractured screws across the tibiofibular syndesmosis remain on image #5 IMPRESSION: Removal of lateral fibular plate and screws Electronically authenticated by: WILLARD ANADN Date: 2021-09-10 08:30[facility] Author Tra Hobson [facility] Note Date/Time December 16, 2024 3:46p m [facility] [address] [place] [address] Discharge Summary Signed Patient: Shey Obrien MR#: [id number] : 1950 Acct:[id number] Age/Sex: 74 / F Adm Date: 5 Loc: 1S Room: 9N7739-[address]: Erik Kim MD Copies to: [...] boyfriend Employment: retired 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 If at any time you are feeling an increase inyour psychiatric symptoms, call your physician or behavioral healthcare provider. If any time you have thoughts of harming yourself or others contact one of the following: Call 98-8 (available 30/01) Crisis Text Line (available 30/01) text 4HOPE to [phone] [facility] Line (available 8 a.m. Midnight) call [phone] ([phone]) Instructions: Depression in adults - Discharge instructions, [facility] [place] Instructions, Know your Meds [...] Up: [facility] - [place] [Outside] - 12/17/24 (manufacturing plant manager will call you tomorrow, if you [...] <Electronically signed by Tra Hobson MD> 12/16/24 [id number] [facility] Work Phone: Evaluation + Plan note Future Appointments Appointment Date:03/20/2024 12:15:00 PM Scheduled Provider: Location:[facility] Appointment Type:Surgery FT [facility] Evaluation note* Diagnosis [...] 40.0-44.9, adult (Z68.41) documented in this encounter [facility] HealthcareEvaluation note* Diagnosis Memory loss- Primary Word finding difficulty EDWIN on CPAP Other insomnia Other chronic pain Generalized anxiety disorder (CMS/HCC) Generalized anxiety disorder Severe episode of recurrent major depressive disorder, 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) documented in this encounter [facility] HealthcareEvaluation note* Diagnosis Paraesophageal hernia- Primary Diaphragmatic hernia without mention of obstruction or gangrene [facility] Diagnosis Preoperative examination- Primary Preoperative examination, unspecified Paraesophageal hernia Diaphragmatic hernia without mention of obstruction or gangrene Abnormal results of liver function studies Nonspecific abnormal results of liver function study Abnormal coagulation profile [facility] Diagnosis Essential hypertension, benign [...] (BMI) of 38.0 to 38.9 in adult ([facility]) documented in this encounter [facility] HealthcareEvaluation note* Diagnosis Essential hypertension, [...] colon Morbid obesity due to excess calories ([facility]) Dyslipidemia ([facility]) Other and unspecified hyperlipidemia Encounter for long-term (current) use of medications Encounter for long-term (current) use of other medications Body mass index [BMI] 40.0-44.9, adult (Z68.41) Essential hypertension, benign (CMS/HCC)- Primary Essential hypertension, benign Dysphagia, unspecified type 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[facility]/HCC) Senile dementia, uncomplicated Chronic obstructive pulmonary disease, unspecified COPD type (CMS/HCC) Hiatal hernia with gastroesophageal reflux disease without esophagitis Primary osteoarthritis of both knees Primary insomnia Persistent disorder of initiating or maintaining sleep EDWIN (obstructive sleep apnea) Obstructive sleep apnea (adult) (pediatric) Essential hypertension, benign ([facility]/HCC)- Primary Essential hypertension, benign Chronic obstructive pulmonary [...] (BMI) of 38.0 to 38.9 in adult ([facility]) Essential hypertension, benign ([facility]/HCC) Essential hypertension, benign Hiatal hernia with gastroesophageal reflux disease without esophagitis documented in this encounter [facility] HealthcareEvaluation note* Diagnosis Memory loss- [...] apnea (adult) (pediatric) documented in this encounter [facility] HealthcareEvaluation note* Diagnosis Essential hypertension, benign [...] psychotic features (HCC) (CMS/HCC) Generalized anxiety disorder ([facility]/HCC) Generalized anxiety disorder EDWIN on CPAP Other [...] smoker -CXR pending documented in this encounter [facility] note* Diagnosis Pre-op evaluation- Primary Preoperative examination, [...] abnormality [facility]* Diagnosis Essential hypertension, benign (CMS/HCC)- Primary [...] or maintaining sleep documented in this encounter [facility] HealthcareEvaluation note* Diagnosis Essential hypertension, [...] or maintaining sleep [facility]* Diagnosis Pre-op evaluation- Primary Preoperative examination, [...] aftercare following surgery [facility] Diagnosis Essential hypertension, benign [...] sleep apnea (adult) (pediatric) Essential hypertension, benign ([facility]/HCC)- Primary Essential hypertension, benign Chronic obstructive pulmonary disease, unspecified COPD type ([facility]/HCC) Hiatal hernia with gastroesophageal reflux disease without esophagitis EDWIN (obstructive sleep apnea) Obstructive sleep apnea (adult) (pediatric) Primary osteoarthritis of both knees Primary insomnia Persistent disorder of initiating or maintaining sleep Class 2 severe obesity due to excess calories with serious comorbidity and body mass index (BMI) of 38.0 to 38.9 in adult ([facility]) Medicare annual wellness visit, subsequent- Primary Prediabetes Other abnormal glucose Dyslipidemia ([facility]) Other and unspecified hyperlipidemia Encounter for long-term (current) use of medications Encounter for long-term (current) use of other medications Essential hypertension, benign ([facility]) Essential hypertension, benign Class 2 severe obesity due to excess calories with serious comorbidity and body mass index (BMI) of 36.0 to 36.9 in adult ([facility]) Chronic obstructive pulmonary disease, unspecified COPD type ([facility]) 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[facility]) Senile dementia, uncomplicated documented in this encounter [facility] HealthcareEvaluation note* Diagnosis Essential hypertension, benign ([facility]/HCC)- Primary Essential hypertension, benign Chronic obstructive pulmonary disease, unspecified COPD type ([facility]) Primary insomnia Persistent disorder of initiating or maintaining sleep Primary osteoarthritis of both knees Hiatal hernia with gastroesophageal reflux disease without esophagitis Seasonal allergic rhinitis due to pollen Screening for colon cancer Special screening for malignant neoplasms, colon Morbid obesity due to excess calories ([facility]) Dyslipidemia ([facility]) Other and unspecified hyperlipidemia Encounter for long-term (current) use of medications Encounter for long-term (current) use of other medications Body mass index [BMI] 40.0-44.9, adult (Z68.41) Essential hypertension, benign ([facility]/HCC)- Primary Essential hypertension, benign Dysphagia, unspecified type 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[facility]) Senile dementia, uncomplicated Chronic obstructive pulmonary disease, unspecified COPD type ([facility]/HCC) Hiatal hernia with gastroesophageal reflux disease without esophagitis Primary osteoarthritis of both knees Primary insomnia Persistent disorder of initiating or maintaining sleep EDWIN (obstructive sleep apnea) Obstructive sleep apnea (adult) (pediatric) Essential hypertension, benign ([facility]/HCC)- Primary Essential hypertension, benign Chronic obstructive pulmonary [...] (BMI) of 38.0 to 38.9 in adult ([facility]) Medicare annual wellness visit, subsequent- Primary Prediabetes Other abnormal glucose Dyslipidemia ([facility]) Other and unspecified hyperlipidemia Encounter for long-term (current) use of medications Encounter for long-term (current) use of other medications Essential hypertension, benign ([facility]) Essential hypertension, benign Class 2 severe obesity due to excess calories with serious comorbidity and body mass index (BMI) of 36.0 to 36.9 in adult ([facility]) Chronic obstructive pulmonary disease, unspecified COPD type ([facility]) 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[facility]) Senile dementia, uncomplicated Chronic obstructive pulmonary disease, unspecified COPD type ([facility]) Primary insomnia Persistent disorder of initiating or maintaining sleep documented in this encounter [facility]* Diagnosis Essential hypertension, benign ([facility])- Primary Essential hypertension, benign Chronic obstructive pulmonary disease, unspecified COPD type ([facility]) Primary insomnia Persistent disorder of initiating or maintaining sleep Primary osteoarthritis of both knees Hiatal hernia with gastroesophageal reflux disease without esophagitis Seasonal allergic rhinitis due to pollen Screening for colon cancer Special screening for malignant neoplasms, colon Morbid obesity due to excess calories ([facility]) Dyslipidemia ([facility]) Other and unspecified hyperlipidemia Encounter for long-term (current) use of medications Encounter for long-term (current) use of other medications Body mass index [BMI] 40.0-44.9, adult (Z68.41) Essential hypertension, benign ([facility])- Primary Essential hypertension, benign Dysphagia, unspecified type 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[facility]) Senile dementia, uncomplicated Chronic obstructive pulmonary disease, unspecified COPD type ([facility]) Hiatal hernia with gastroesophageal reflux disease without esophagitis Primary osteoarthritis of both knees Primary insomnia Persistent disorder of initiating or maintaining sleep EDWIN (obstructive sleep apnea) Obstructive sleep apnea (adult) (pediatric) Essential hypertension, benign ([facility]/HCC)- Primary Essential hypertension, benign Chronic obstructive pulmonary disease, unspecified COPD type ([facility]) Hiatal hernia with gastroesophageal reflux disease without esophagitis EDWIN (obstructive sleep apnea) Obstructive sleep apnea (adult) (pediatric) Primary osteoarthritis of both knees Primary insomnia Persistent disorder of initiating or maintaining sleep Class 2 severe obesity due to excess calories with serious comorbidity and body mass index (BMI) of 38.0 to 38.9 in adult ([facility]) Medicare annual wellness visit, subsequent- Primary Prediabetes Other abnormal glucose Dyslipidemia ([facility]) Other and unspecified hyperlipidemia Encounter for long-term (current) use of medications Encounter for long-term (current) use of other medications Essential hypertension, benign ([facility]) Essential hypertension, benign Class 2 severe obesity due to excess calories with serious comorbidity and body mass index (BMI) of 36.0 to 36.9 in adult ([facility]) Chronic obstructive pulmonary disease, unspecified COPD type ([facility]) 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[facility]) Senile dementia, uncomplicated Primary insomnia Persistent disorder of initiating or maintaining sleep Chronic obstructive pulmonary disease, unspecified COPD type ([facility]/HCC) documented in this encounter [facility] note* Diagnosis Essential hypertension, benign ([facility])- Primary Essential hypertension, benign Chronic obstructive pulmonary disease, unspecified COPD type ([facility]) Primary insomnia Persistent disorder of initiating or maintaining sleep Primary osteoarthritis of both knees Hiatal hernia with gastroesophageal reflux disease without esophagitis Seasonal allergic rhinitis due to pollen Screening for colon cancer Special screening for malignant neoplasms, colon Morbid obesity due to excess calories ([facility]) Dyslipidemia ([facility]) Other and unspecified hyperlipidemia Encounter for long-term (current) use of medications Encounter for long-term (current) use of other medications Body mass index [BMI] 40.0-44.9, adult (Z68.41) Essential hypertension, benign ([facility])- Primary Essential hypertension, benign Dysphagia, unspecified type 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[facility]) Senile dementia, uncomplicated Chronic obstructive pulmonary disease, unspecified COPD type ([facility]) Hiatal hernia with gastroesophageal reflux disease without esophagitis Primary osteoarthritis of both knees Primary insomnia Persistent disorder of initiating or maintaining sleep EDWIN (obstructive sleep apnea) Obstructive sleep apnea (adult) (pediatric) Essential hypertension, benign ([facility])- Primary Essential hypertension, benign Chronic obstructive pulmonary disease, unspecified COPD type ([facility]/HCC) Hiatal hernia with gastroesophageal reflux disease without esophagitis EDWIN (obstructive sleep apnea) Obstructive sleep apnea (adult) (pediatric) Primary osteoarthritis of both knees Primary insomnia Persistent disorder of initiating or maintaining sleep Class 2 severe obesity due to excess calories with serious comorbidity and body mass index (BMI) of 38.0 to 38.9 in adult ([facility]) Medicare annual wellness visit, subsequent- Primary Prediabetes Other abnormal glucose Dyslipidemia ([facility]) Other and unspecified hyperlipidemia Encounter for long-term (current) use of medications Encounter for long-term (current) use of other medications Essential hypertension, benign ([facility]) Essential hypertension, benign Class 2 severe obesity due to excess calories with serious comorbidity and body mass index (BMI) of 36.0 to 36.9 in adult ([facility]) Chronic obstructive pulmonary disease, unspecified COPD type ([facility]) 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[facility]) Senile dementia, uncomplicated Degenerative lumbar spinal stenosis- Primary Spinal stenosis of lumbar region Chronic obstructive pulmonary disease, unspecified COPD type ([facility]) documented in this encounter [facility]Evaluation note* Diagnosis Essential hypertension, benign- Primary Essential hypertension, benign Chronic obstructive pulmonary disease, unspecified COPD type (HCC) Primary insomnia Persistent disorder of initiating or maintaining sleep Primary osteoarthritis of both knees Hiatal hernia with gastroesophageal reflux disease without esophagitis Seasonal allergic rhinitis due to pollen Screening for colon cancer Special screening for malignant neoplasms, colon Morbid obesity due to excess calories ([facility]) Dyslipidemia Other and unspecified hyperlipidemia Encounter for [...] (BMI) of 38.0 to 38.9 in adult ([facility]) Medicare annual wellness visit, subsequent- Primary Prediabetes [...] Narrative No data available for this section [facility] No data available for this section [facility] Progress note No data available for this section [facility] (n[facility]ative)* Consultation (Routine) - Pending Review Specialty Diagnoses / Procedures Referred By Joan junior Referred To Contact General Surgery Diagnoses Screening for colon cancer Procedures ME OFFICE/OUTPATIENT NEW HIGH MDM 60 MINUTES Latrell Jack MD [address] [place] [address] Pa Webb MD [address] [place] [address] Referral ID Status Reason Start Date Expiration Date Visits Requested Visits Authorized [id number] Pending Review Specialty Services Required 08/11/2023 02/07/2024 1 1 [facility] Healthcare Summary Purpose Family History No [...] December 17 2:30pm Hospital Course Note [facility] SURGERY Clinical Discharge Summary PERSON INFORMATION Name SHEY OBRIEN Age 68 Years 51 Sex FEMALE Language Spanish PCP LATRELL JACK Marital Status Single Med Service Ambulatory Surgery Acct# Arrival 02/04/19 11:44:00 Visit Reason SURGERY - RELEASE TRIGGER FINGER LEFT RING FINGER AND E/O CYST LEFT RING FINGER Acuity LOS 012 05:38 Address: [address] [place] [address] Comment: PROVIDER INFORMATION VITALS INFORMATION Vital Sign [...] COMPUTED TOMOGRAPHY THORAX W/O CNTRST Katarzyna Snyder, PLANNING AIDE.LOG BUNCHER [address] [place] [address] [place] [address] Referral ID Status Reason Start Date Expiration Date Visits Requested Visits Authorized [id number] New Request Auto-Generat ed Referral 08/07/2025 09/06/2025 1 1 Specialty Diagnoses / Procedures Referred By Joan junior Referred To Contact Radiology Diagnoses Memory loss Procedures MR brain wo contrast Diomedes Fitzgerald DO [address] [place] [address] Referral ID Status Reason Start Date Expiration Date V isits Requested Visits Authorized [id number] Pending Review 03/07/2024 09/03/2024 1 1 Specialty Diagnoses / Procedures Referred By Contac t Referred To Contact Diagnoses Preoperative examination Paraesophageal hernia Procedures REFER TO [facility] PREOPERATIVE OPTIMIZATION OFFICE/OUTPATIENT NEW HIGH MDM 60 MINUTES Katarzyna Carter, LISSETTE.LOG BUNCHER [address] [place] [address] Referral ID Status Reason Start Date Expiration Date Visits Requested Visits Authorized [id number] Authorized PCP Requested Referral 4 05/04/2025 1 1 Specialty Diagnoses / Procedures Referred By Contac t Ref[facility] Diagnoses Preoperative examination Paraesophageal hernia Procedures ECG COMPLETE ECG ROUTINE ECG W/LEAST 12 LDS W/I&R Katarzyna Carter, PLANNING AIDE.LOG BUNCHER [address] [place] [address] [facility] [address] [place] [address] Referral ID Status Reason Start Date Expiration Date Visits Requested Visits Authorized [id number] New Request Auto-Generat ed Referral 4 05/04/2025 1 1 Additional Source Comments INFORMATION SOURCE (unrecogn ized section and content) DATE CREATED AUTHOR 02/17/2019 [facility] DATE CREATED AUTHOR AUTHOR'S ORGANIZ ATION 08/03/2022 [facility] DATE CREATED AUTHOR AUTHOR'S ORGANIZ ATION 03/28/2024 Jernigan Fercho [facility] DATE CREATED AUTHOR AUTHOR'S ORGANIZ ATION 04/04/2024 Jernigan Fercho [facility] DATE CREATED AUTHOR AUTHOR'S ORGANIZ ATION 08/12/2024 [facility] DATE CREATED AUTHOR AUTHOR'S ORGANIZ ATION 12/13/2024 Jernigan Fercho [facility] DATE CREATED AUTHOR AUTHOR'S ORGANIZ ATION 12/17/2024 [place] [facility] [facility] DATE CREATED AUTHOR AUTHOR'S ORGANIZ ATION 02/08/2025 [facility] DATE CREATED AUTHOR AUTHOR'S ORGANIZ ATION 02/25/2025 [facility] EPIC DATE CREATED AUTHOR AUTHOR'S ORGANIZ ATION 03/24/2025 [facility] Care Teams (unrecognized sec tion and content) Assistant Toddler Teacher Relationship Specialty Start Date End Date Latrell Jack MD [address] [place] [phone] PCP - General Family Medicine 08/05/23 Assistant Toddler Teacher Relationship Specialty Start Date End Date Latrell Jack MD [address] [place] [id number] PCP - General Family Medicine 08/05/23 Assistant Toddler Teacher Relationship Specialty Start Date End Date Latrell Jack MD [address] [place] [phone] PCP - General Family Medicine 08/05/23 Assistant Toddler Teacher Relationship Specialty Start Date End Date Dafne Spears MD [address] [place] [address] Internal Medicine 04/02/24 Assistant Toddler Teacher Relationship Specialty Start Date End Date Dafne Spears MD [address] [place] [address] Internal Medicine 04/02/24 Assistant Toddler Teacher Relationship Specialty Start Date End Date Dafne Spears MD [address] [place] [id number] Internal Medicine 04/02/24 Assistant Toddler Teacher Relationship Specialty Start Date End Date Latrell Jack MD [address] [place] [address] PCP - General Family Medicine 08/05/23 Assistant Toddler Teacher Relationship Specialty Start Date End Date Latrell Jack MD [address] [place] [address] PCP - General Family Medicine 08/05/23 Assistant Toddler Teacher Relationship Specialty Start Date End Date Latrell Jack MD [address] [place] [address] PCP - General Family Medicine 08/05/23 Diomedes Fitzgerald DO [address] [place], [place] [id number] Referring Physician Neurology 05/30/24 Assistant Toddler Teacher Relationship Specialty Start Date End Date Latrell Jack MD [address] [place] [address] PCP - General Family Medicine 08/05/23 Assistant Toddler Teacher Relationship Specialty Start Date End Date Latrell Jack MD [address] [place] [address] PCP - General Family Medicine 08/05/23 Assistant Toddler Teacher Relationship Specialty Start Date End Date Latrell Jack MD [address] [place] [address] PCP - General Family Medicine 08/05/23 Assistant Toddler Teacher Relationship Specialty Start Date End Date Latrell Jack MD [address] [place] [address] PCP - General Family Medicine 08/05/23 Assistant Toddler Teacher Relationship Specialty Start Date End Date Latrell Jack MD [address] [place] [address] PCP - General Family Medicine 08/05/23 Assistant Toddler Teacher Relationship Specialty Start Date End Date Latrell Jack MD [address] [place] [address] PCP - General Family Medicine 08/05/23 Diomedes Fitzgerald DO [address] [place], [place] [id number] Referring Physician Neurology 05/30/24 Assistant Toddler Teacher Relationship Specialty Start Date End Date Latrell Jack MD [address] [place] [address] PCP - General Family Medicine 08/05/23 Diomedes Fitzgerald DO [address] [place] [address] Referring Physician Neurology 05/30/24 Assistant Toddler Teacher Relationship Specialty Start Date End Date Latrell Jack MD [address] [place] [address] PCP - General Family Medicine 08/05/23 Diomedes Fitzgerald DO [address] [place] [address] Referring Physician Neurology 05/30/24 Assistant Toddler Teacher Relationship Specialty Start Date End Date Latrell Jack MD [address] [place], [place] [id number] PCP - General Family Medicine 07/01/24 Dafne Spears MD [address] [address] Internal Medicine 04/02/24 Assistant Toddler Teacher Relationship Specialty Start Date End Date Latrell Jack MD [address] [place] [address] PCP - General Family Medicine 07/01/24 Dafne Spears MD [address] [address] Internal Medicine 04/02/24 Assistant Toddler Teacher Relationship Specialty Start Date End Date Latrell Jakc MD [address] [place] [phone] PCP - General Family Medicine 08/05/23 Diomedes Fitzgerald DO [address] [place] [address] Referring Physician Neurology 05/30/24 Assistant Toddler Teacher Relationship Specialty Start Date End Date Latrell Jack MD [address] [place] [address] PCP - General Family Medicine 08/05/23 Diomedes Fitzgerald DO [address] [place] [id number] Referring Physician Neurology 05/30/24 Assistant Toddler Teacher Relationship Specialty Start Date End Date Latrell Jack MD [address] [place], [place] [phone] PCP - General Family Medicine 07/01/24 Dafne Spears MD [facility] [place] [place] [address] [place] [address] Internal Medicine 04/02/24 Assistant Toddler Teacher Relationship Specialty Start Date End Date Latrell Jack MD [address] [place] [address] PCP - General Family Medicine 08/05/23 Latrell Jack MD [address] [place] [place] [address] PCP - ACO Reach 08/16/24 Diomedes Fitzgerald DO [address] [place] [address] Referring Physician Neurology 05/30/24 Assistant Toddler Teacher Relationship Specialty Start Date End Date Latrell Jack MD [address] [place] [address] PCP - General Family Medicine 08/05/23 Latrell Jack MD [address] [place] [address] PCP - ACO Reach 08/16/24 Diomedes Fitzgerald DO [address] [place] [address] Referring Physician Neurology 05/30/24 Assistant Toddler Teacher Relationship Specialty Start Date End Date Latrell Jack MD [address] [place] [address] PCP - General Family Medicine 08/05/23 Latrell Jack MD [address] [place] [address] PCP - ACO Reach 08/16/24 Diomedes Fitzgerald DO [address] [place], [place] [address] Referring Physician Neurology 05/30/24 Assistant Toddler Teacher Relationship Specialty Start Date End Date Latrell Jack MD [address] [place] [address] PCP - General Family Medicine 08/05/23 Latrell Jack MD [address] [place] [address] PCP - ACO Reach 08/16/24 Diomedes Fitzgerald DO [address] [place], [place] [address] Referring Physician Neurology 05/30/24 Assistant Toddler Teacher Relationship Specialty Start Date End Date Latrell Jack MD [address] [place] [address] PCP - General Family Medicine 08/05/23 Latrell Jack MD [address] [place] [address] PCP - ACO Reach 08/16/24 Diomedes Fitzgerald DO [address] [place] [address] Referring Physician Neurology 05/30/24 Assistant Toddler Teacher Relationship Specialty Start Date End Date Latrell Jack MD [address] [place] [address] PCP - General Family Medicine 08/05/23 Latrell Jack MD [address] [place] [address] PCP - ACO Reach 08/16/24 Diomedes Fitzgerald DO [address] [place] [address] Referring Physician Neurology 05/30/24 Assistant Toddler Teacher Relationship Specialty Start Date End Date Latrell Jack MD [address] [place] [address] PCP - General Family Medicine 08/05/23 Latrell Jack MD [address] [place] [address] PCP - ACO Reach 08/16/24 Diomedes Fitzgerald DO [address] [place] [address] Referring Physician Neurology 05/30/24 Team Status: Active [...] February 03, 2025 End: February 03, 2025 Assistant Toddler Teacher Relationship Specialty Start Date End Date Latrell Jack MD [address] [place] [address] PCP - General Family Medicine 08/05/23 Latrell Jack MD [address] [place] [address] PCP - ACO Reach 08/16/24 Diomedes Fitzgerald DO [address] [place] [address] Referring Physician Neurology 05/30/24 Sugar Arenas, FAMILY PRACTICE NURSE PRACTITIONER [address] [place] [address] Engineering Clerk Family Medicine 01/16/25 Assistant Toddler Teacher Relationship Specialty Start Date End Date Latrell Jack MD [address] [place] [address] PCP - General Family Medicine 08/05/23 Latrell Jack MD [address] [place] [address] PCP - ACO Reach 08/16/24 Diomedes Fitzgerald DO [address] [place] [address] Referring Physician Neurology 05/30/24 Sugar Arenas, FAMILY PRACTICE NURSE PRACTITIONER [address] [place] [address] Engineering Clerk [facility] Medicine 01/16/25 Assistant Toddler Teacher Relationship Specialty Start Date End Date Latrell Jack MD [address] [place] [address] PCP - General Family Medicine 08/05/23 Latrell Jack MD [address] [place] [address] PCP - ACO Reach 08/16/24 Diomedes Fitzgerald DO [address] [place] [address] Referring Physician Neurology 05/30/24 Sugar Arenas, FAMILY PRACTICE NURSE PRACTITIONER [address] [place] [address] Engineering Clerk [facility] 01/16/25 Assistant Toddler Teacher Relationship Specialty Start Date End Date Latrell Jack MD [address] [place] [address] PCP - General Family Medicine 08/05/23 Latrell Jack MD [address] [place] [address] PCP - ACO Reach 08/16/24 Diomedes Fitzgerald DO [address] [place], [place] [address] Referring Physician Neurology 05/30/24 Sugar Arenas, FAMILY PRACTICE NURSE PRACTITIONER [address] [place] [address] Engineering Clerk Family Medicine 01/16/25 03/04/25 Reason for Visit (unrecogniz ed section and [...] Diagnoses 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CMS/HCC) Other dysphagia Procedures ME OFFICE/OUTPATIENT NEW HIGH MDM 60 MINUTES Latrell Jack MD [address] [place] [address] Diomedes Fitzgerald DO [address] [place] [address] Referral ID Status Reason Start Date Expiration Date V isits Requested Visits Authorized [id number] Closed Specialty Services Required 02/09/2024 08/07/2024 1 1 Reason Comments Memory Loss Specialty Diagnoses / Procedures Referred By Contac t Referred To Contact Diagnoses Preoperative examination Paraesophageal hernia Procedures REFER TO [facility] - PREOPERATIVE OPTIMIZATION OFFICE/OUTPATIENT NEW HIGH MDM 60 MINUTES Katarzyna Snyder APRN.[employer] [facility] [address] [place] [address] Referral ID Status Reason Start Date Expiration Date V isits Requested Visits Authorized [id number] Closed PCP Requested Referral 05/06/2024 05/04/2025 1 [...] or prosecute any alcohol or drug abuse patient.[facility] the event this information is protected by the Federal Confidentiality of Alcohol and Drug Abuse Patient Records regulations: The Federal rules restrict any use of the information to criminally investigate or prosecute any alcohol or drug abuse patient.[facility] Center[facility] the event this information is protected by the Federal Confidentiality of Alcohol and Drug Abuse Patient Records regulations: The Federal rules restrict any use of the information to criminally investigate or prosecute any alcohol or drug abuse patient.[facility] Center[facility] the event this information is protected by the Federal Confidentiality of Alcohol and Drug Abuse Patient Records regulations: The Federal rules restrict any use of the information to criminally investigate or prosecute any alcohol or drug abuse patient.[facility] Center[facility] the event this information is protected by the Federal Confidentiality of Alcohol and Drug Abuse Patient Records regulations: The Federal rules restrict any use of the information to criminally investigate or prosecute any alcohol or drug abuse patient.[facility] Center[facility] the event this information is protected by the Federal Confidentiality of Alcohol and Drug Abuse Patient Records regulations: The Federal rules restrict any use of the information to criminally investigate or prosecute any alcohol or drug abuse patient.[facility] FOR RECORDS PERTAINING TO PATIENTS [...] BE BASED ON THE PRIMARY CLINICAL RECORDS. [facility], [facility]. provides no warranty or guarantee of the accuracy or completeness of information in this document.
--- NOTE | 2025-03-28 16:16 | XR_ITS ---
The [address] [address] Patient Name: PARTH BOSS MRN: [id number] date: 1950 Sex: F Assigned Patient Location: ER Current Patient Location: ER Accession/Order Number: [id number] Exam Date: 03/28/2025 16:24 Report Date: 03/28/2025 17:00 At the request of: SARA CONROY Procedure: XR shoulder LT min 2V XR shoulder LT min 2V 03/28/2025 4:28 PM SIGNS AND SYMPTOMS: ^Left Shoulder pain PROTOCOL: Frontal, Grashey, scapular Y views of the left shoulder COMPARISON: None FINDINGS: There is mild hypertrophy of the acromioclavicular joint. There is mild narrowing of the glenohumeral joint. No fracture or dislocation. Subcortical sclerosis is noted along the greater tuberosity of the left humeral head. The visualized left hemithorax is grossly intact. XR/XR shoulder LT min 2V IMPRESSION: No fracture or dislocation. Degenerative changes are noted in the left shoulder with findings suspicious for underlying rotator cuff pathology. Impression dictated by: Pa Villa M.D. 03/28/2025 5:00 PM Dictation Location: [place] [address] Electronically authenticated by: [id number] Y Date: 03/28/2025 17:00
--- NOTE | 2025-03-28 16:17 | ED.GENADUL1 ---
HPI HPI - General Adult General Chief complaint: Extremity Problem, Nontraumatic Stated complaint: LEFT SHOULDER PAIN Time Seen by Provider: 03/28/25 16:02 Source: patient Mode of arrival: walk-in Limitations: no limitations History of Present Illness HPI narrative: Patient is a 74-year-old female that presents to the emergency department with complaints of intermittent left shoulder pain for a few weeks now. She denies any chest pain, shortness of breath, or abdominal pain. She denies any trauma or falls. She denies any previous surgery. She has pain on the anterior and posterior aspects of the left shoulder. She is left-handed. Related Data Home Medications ?Medication ?Instructions ?Recorded ?Confirmed aspirin 81 mg tablet,delayed 81 mg PO DAILY 04/16/24 12/30/24 release (Adult Aspirin Regimen) atorvastatin 40 mg tablet 40 mg PO DAILY 04/16/24 12/30/24 calcium carbonate (Calcium 500) 500 mg PO BID 04/16/24 12/30/24 donepezil 5 mg tablet (Aricept) 5 mg PO DAILY 04/16/24 12/30/24 famotidine 40 mg tablet 40 mg PO DAILY 04/16/24 12/30/24 fluticasone propionate 50 2 spray intranasal DAILY PRN 04/16/24 12/30/24 mcg/actuation nasal allergy symptoms spray,suspension (24 Hour Allergy Relief) losartan 50 mg tablet 50 mg PO DAILY 04/16/24 12/30/24 pantoprazole 40 mg tablet,delayed 40 mg PO DAILY 04/16/24 12/30/24 release tiotropium bromide 18 mcg capsule 1 cap inhalation DAILY 04/16/24 12/30/24 with inhalation device (Spiriva with HandiHaler) vitamin E 268 mg (400 unit) capsule 268 mg PO DAILY 04/16/24 12/30/24 zolpidem 12.5 mg tablet,extended 12.5 mg PO DAILY 04/16/24 12/30/24 release,multiphase Previous Rx's ?Medication ?Instructions ?Recorded methocarbamol 500 mg tablet 500 mg PO Q8H PRN pain #20 tabs 12/01/24 zonisamide 50 mg capsule 100 mg (2 x 50 mg) PO DAILY #60 12/12/24 caps hydrocodone 5 mg-acetaminophen 325 1 tab PO Q6H PRN pain #5 tabs 03/28/25 mg tablet methylprednisolone 4 mg tablets in 4 mg PO DAILY #21 ea 03/28/25 a dose pack (Medrol ([place])) Allergies Allergy/AdvReac Type Severity Reaction Status Date / Time No Known Drug Allergies Allergy Verified 03/28/25 15:57 Opioid HPI Opioid Management Most Recent Opioid Data: Last Pain Scale 10 Today, 16:51 Last MAR Pain Assessment Today, 16:51 Review of Systems ROS Status of ROS 10 or more systems reviewed and unremarkable except as noted in history and below PFSH [facility] Medical History Osteoarthritis ?M19.90 - Unspecified osteoarthritis, unspecified site (ICD-10) Anxiety ?F41.9 - Anxiety disorder, unspecified (ICD-10) Hiatal hernia ?K44.9 - Diaphragmatic hernia without obstruction or gangrene (ICD-10) Sleep apnea ?G47.30 - Sleep apnea, unspecified (ICD-10) COPD (chronic obstructive pulmonary disease) ?J44.9 - Chronic obstructive pulmonary disease, unspecified (ICD-10) High cholesterol ?E78.00 - Pure hypercholesterolemia, unspecified (ICD-10) HTN (hypertension) ?I10 - Essential (primary) hypertension (ICD-10) Surgical History History of ankle surgery ?Z98.890 - Other specified postprocedural states (ICD-10) History of hand surgery ?Z98.890 - Other specified postprocedural states (ICD-10) History of knee replacement ?Z96.659 - Presence of unspecified artificial knee joint (ICD-10) Social History Little interest or pleasure in doing things: not at all Feeling down, depressed, or hopeless: not at all Exam Narrative Exam Narrative: General: No distress, age-appropriate Skin: Warm, dry, no pallor. No rash. Head: Normocephalic, atraumatic. Neck: Supple, non-tender. Eye: Pupils are equal, round and EOMI. No scleral icterus. Cardiovascular: Regular Rate and Rhythm without murmur, gallop or rub. Respiratory: No accessory muscle use or respiratory distress. Lungs are clear to auscultation, no wheezing, rales or rhonchi Chest Wall: no tenderness Back: No midline thoracic or lumbar vertebral tenderness. Musculoskeletal: Full ROM of all extremities except left shoulder full left shoulder forward flexion, reduced internal rotation to the buttock as compared to low back on the contralateral side. 5/5 strength with supraspinatus, and internal rotation. 4/5 external rotation strength. Bilateral upper extremities are grossly distally neurovascularly intact. No calf or popliteal tenderness. Positive Pisano sign. Neurological: A&O x4. No cranial nerve dysfunction observed. No truncal ataxia. Moves all extremities. Sensation intact. Psychiatric: Cooperative and interactive. Normal mood and affect. Constitutional Vital Signs, click to edit/add: Last Vital Signs Temp 97.8 F 03/28/25 15:58 Pulse 88 03/28/25 15:58 Resp 03/28/25 15:58 BP 190/100 H 03/28/25 15:58 Pulse Ox 97 03/28/25 15:58 O2 Del Method Room Air 03/28/25 15:58 Course Vital Signs Vital signs: Vital Signs Temperature 97.8 F 03/28/25 15:58 Pulse Rate 88 03/28/25 15:58 Respiratory Rate 20 03/28/25 15:58 Blood Pressure 190/100 H 03/28/25 15:58 Pulse Oximetry 97 03/28/25 15:58 Oxygen Delivery Method Room Air 03/28/25 15:58 Temperature 97.8 F 03/28/25 15:58 Pulse Rate 88 03/28/25 15:58 Respiratory Rate 03/28/25 15:58 Blood Pressure 190/100 H 03/28/25 15:58 Pulse Oximetry 97 03/28/25 15:58 Oxygen Delivery Method Room Air 03/28/25 15:58 Medical Decision Making [facility] [place] Narrative Medical decision making narrative: This is a 74-year-old female with complaints of left shoulder pain intermittently for a few weeks. She denies any chest pain, shortness of breath, abdominal pain. She denies any trauma or previous surgery to her shoulder. She is not a diabetic. She has been taking 1000mg of Tylenol intermittently for the pain. EKG: NSR, no ST elevation, no ischemic changes On arrival patient appears comfortable sitting on ED cart. BP is hypertensive, she does have HTN and is in pain. She does have decreased ROM in IR, weakness in ER, and positive Pisano sign with anterior/ posterior shoulder tenderness on exam. No chest tenderness. No radiating symptoms. She is left hand dominant. Will give her an injection of Toradol 30mg IM. Left Shoulder XR ordered. On my review there is no fracture, dislocation, or mass. Rad read with degenerative changes and findings suspicious for underlying rotator cuff pathology. EKG and clinical presentation do not support ACS or other emergent conditions. I discussed test findings with patient and recommend orthopedic follow-up. She is still having a bit of pain in the shoulder after the Toradol injection. 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 I did give her a short course of [place] 5 mg and a Medrol Dosepak. Return precautions were discussed, chest pain, increase shortness of breath, neurologic changes, or systemic symptoms. Plan will be discharge home with close follow-up with orthopedics for further evaluation and management. Patient agreeable and was discharged. Differential Diagnosis Differential Diagnosis: Cardiac, Rotator cuff pathology, osteoarthritis, Referred pain Imaging Data Xray L Shoulder: Attestation: I have reviewed the pertinent imaging results. Radiologist's impression: ITS Impressions Shoulder X-Ray 03/28/25 16:16 IMPRESSION: No fracture or dislocation. Degenerative changes are noted in the left shoulder with findings suspicious for underlying rotator cuff pathology. Impression dictated by: Pa Villa M.D. 03/28/2025 5:00 PM Dictation Location: [place] [address] Electronically authenticated by: [id number] Y Date: 03/28/2025 17:00 Discharge Plan Discharge Chief Complaint: Extremity Problem, Nontraumatic Clinical Impression: Rotator cuff arthropathy of left shoulder Patient Disposition: Home, Self-Care Time of Disposition Decision: 17:48 Condition: Good Mode of Transportation: Private Vehicle Prescriptions / Home Meds: New methylprednisolone [Medrol ([place]ingo)] 4 mg tablets,dose pack 4 mg PO DAILY Qty: 21 0RF hydrocodone-acetaminophen 5-325 mg tablet 1 tab PO Q6H PRN (Reason: pain) Qty: 5 0RF No Action fluticasone propionate [24 Hour Allergy Relief] 50 mcg/actuation spray,suspension 2 spray intranasal DAILY PRN (Reason: allergy symptoms) Rx Instructions: administer into each nostril donepezil [Aricept] 5 mg tablet 5 mg PO DAILY atorvastatin 40 mg tablet 40 mg PO DAILY pantoprazole 40 mg tablet,delayed release (DR/EC) 40 mg PO DAILY losartan 50 mg tablet 50 mg PO DAILY zolpidem 12.5 mg tablet,ext release multiphase 12.5 mg PO DAILY tiotropium bromide [Spiriva with HandiHaler] 18 mcg capsule, w/inhalation device 1 cap inhalation DAILY Rx Instructions: puncture 1 cap using device; one dose = 2 inhalations aspirin [Adult Aspirin Regimen] 81 mg tablet,delayed release (DR/EC) 81 mg PO DAILY calcium carbonate [Calcium 500] 500 mg calcium (1,250 mg) tablet,chewable 500 mg PO BID famotidine 40 mg tablet 40 mg PO DAILY vitamin E 268 mg (400 unit) capsule 268 mg PO DAILY methocarbamol 500 mg tablet 500 mg PO Q8H PRN (Reason: pain) Qty: 20 0RF zonisamide 50 mg capsule 100 mg PO DAILY Qty: 60 2RF Print Language: Sami Instructions: Shoulder Pain (ED) Additional Instructions: At-Home Care Rest: Avoid heavy lifting, overhead activities, or repetitive shoulder movements for a few days. Ice: Apply an ice pack to the shoulder for 15?20 minutes, 3?4 times daily for the first few days to reduce pain and inflammation. Gentle stretching: Start light [id number]-ry-[id number] exercises as tolerated. Avoid painful movements. Return to the ER or Call 911 If You Develop: Chest pain, shortness of breath, or pressure in your chest Pain radiating to jaw, neck, or arm with associated nausea or sweating Sudden weakness, numbness, or loss of movement in your arm or hand Fever or chills Increased swelling, redness, or warmth in the shoulder Referrals: Leon Galloway DO [Physician] - As soon as possible Jayro Delgado DO [Physician, Orthopedics] - As soon as possible Latrell Mckeon MD [Primary Care Provider, Family Practice] - 1 week Discharge Date/Time: 03/28/25 18:24
[2025-03-28] MEDS: KETOROLAC TROMETHAMINE 30 MG/ML VIAL IM (16:51)
--- NOTE | 2025-03-28 17:27 | ECG_ITS ---
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 Measurements Intervals Pony Rate: 76 P: 30 MO: 180 QRS: 1 QRSD: 78 T: 37 QT: 394 QTc: 425 Interpretive Statements 1100 Sinus rhythm 4068 Nonspecific Twave abnormality 5222 Moderate voltage criteria for LVH, may be normal variant 9130 borderline ECG Compared to ECG 02/22/2022 12:23:26 Left ventricular hypertrophy now present Electronically Signed On 03-28-2025 20:05:22 EDT by DARRICK WELCH M.D.
== END 2025-03-28 18:24 | disposition home or self-care (01) ==
PROVIDERS: Emergency Provider Emergency Medicine; PCP Family Medicine
DX: M13.812 Other specified arthritis, left shoulder (principal); I10 Essential (primary) hypertension
CPT/HCPCS: 73030; 93005; 96372; 99284; J1885

== ENCOUNTER 2025-04-10 07:52 | Outpatient (OUT) | payer MEDICARE, OTHER, SELFPAY ==
--- OUTSIDE RECORDS SUMMARY | 2025-02-24 10:17 | XMS_ITS ---
Author Name Auto Generated Organization OHIP Care Team Providers Care Security Manager Name Role Phone GUERO, LATRELL Attending Unavailable GILLYASMINE HARRIS Attending Unavailable NADERER, LATRELL Attending Unavailable NADERER, LATRELL Attending Unavailable NADERER, LATRELL Attending Unavailable YASMINE FLOWERS Attending Unavailable KATARZYNA SNYDER Referring Unavailable NADERER, LATRELL A Primary Care Unavailable BEFFAXAVIER Referring Unava ilable NADERER, LATRELL A Primary Care Unavailable BEXAVIER MANUEL Referring Unava ilable NADERER, LATRELL A Primary Care Unavailable XAVIER BOYD Attending Unava ilable DAFNE SPEARS Referring Unavailable KATARZYNA SNYDER Attending Unavailable BARI CASTILLO Referring Unavailable NADERER, LATRELL A Primary Care Unavailable JAMIL DELACRUZ Referring Unavailable NADERER, LATRELL A Primary Care Unavailable BEXAVIER MANUEL Referring Unava ilable NADERER, LATRELL A Primary Care Unavailable XAVIER BOYD Admitting Unava ilable BEFFXAVIER Flood Attending Unava ilable Giedraitis , Talat Benedict Attending Unavailable Giedraitis , Andlinette Benedict Attending Unavailable Giedraitis , Andlinette Benedict Attending Unavailable Giedraitis MD, Andlinette Benedict Attending Unavailable Giedraitis MD, Andrius Benedict Attending Unavailable Giedraitis , Andlinette Benedict Attending Unavailable Elmer Kohli Attending Unavailable Elmer Kohli Attending Unavailable Elmer Kohli Attending Unavailable Erik Kim Admitting Unavailab Tra Chew Attending Unavailable Latrell Jack Primary Care Unavailable Latrell Jack Primary Care Unavailable Erik Kim Attending Unavailab le Erik Kim Admitting Unavailab le PROBLEMS DATE TYPE CONDITION / CODE ATTENDING STATUS [facility] 12/12/2024 Unknown Major depressive disorder, recurrent, moderate / F33.1(ICD-10) Tra Hobson Active [facility] 08/07/2024 Active Postoperative vi sit / Z48.89(ICD-10) KATARZYNA SNYDER Active [facility] 07/24/2024 Active Acute postoperat owen pain / G89.18(ICD-10) XAVIER BOYD Active [facility] 07/24/2024 Active TIA (transient i schemic attack) / G45.9(ICD-10) NA Active [facility] 07/24/2024 Active Memory loss / R41.3(ICD-10) NA Active [facility] 07/24/2024 Active Chronic back foreign n, unspecified back location, unspecified back pain laterality / M54.9(ICD-10) NA Active [facility] 07/24/2024 Active Chronic back foreign n, unspecified back location, unspecified back pain laterality / G89.29(ICD-10) NA Active [facility] 07/24/2024 Active Gastroesophageal reflux disease, unspecified whether esophagitis present / K21.9(ICD-10) NA Active [facility] 07/24/2024 Active Primary insomnia / F51.01(ICD-10) NA Active [facility] 07/24/2024 Active Hypertension, un specified type / I10(ICD-10) NA Active [facility] 07/24/2024 Active Dyslipidemia / E78.5(ICD-10) [facility] 07/24/2024 Active EDWIN (obstructive sleep apnea) / G47.33(ICD-10) NA Active [facility] 07/24/2024 Active Paraesophageal h ernia / K44.9(ICD-10) Active [facility] 07/23/2024 Active Abnormal MRI of head / R93.0(ICD-10) Active [facility] 07/23/2024 Active Former smoker / Z87.891(ICD-10) [facility] 07/23/2024 Active Chronic obstruct owen pulmonary disease, unspecified COPD type (HCC) / J44.9(ICD-10) [facility] 07/23/2024 Active Pre-op evaluatio n / Z01.818(ICD-10) [facility] 07/23/2024 Active Preoperative exa mination / Z01.818(ICD-10) Active [facility] 07/23/2024 Active CHENEY (dyspnea on exertion) / R06.09(ICD-10) [facility] 07/23/2024 Active Abnormal results of liver function studies / R94.5(ICD-10) [facility] 07/23/2024 Active Abnormal coagula tion profile / R79.1(ICD-10) [facility] PROCEDURES No Procedure Records Found RESULTS LIPID PANEL Collected: 12/13/2024 6:04 AM Status: F Source: [facility] TYPE CODE TESTS RESULT OUT OF RANGE REFERENCE UNITS LAB CHOL Cholesterol 149 Normal 140-200 mg/dL Result Comment: Chol less th an 200 mg/dl low risk Chol 201-239 mg/dl borderline risk Chol 240 mg/dl and greater high risk LAB HDL HDL Cholesterol 42 Normal 23-92 mg/dL Result Comment: HDL CHOL ATP -III CLASSIFICATION Cardiovascular Risk HDL > or equal to 60 mg/dL LOW HDL < 40 mg/dL HIGH LAB TRIG W REF Triglyceride w/Reflex 338 High 0-149 mg/dL Result Comment: TRIG ATP III CLASSIFICATION TRIG less than 150 mg/dL Normal TRIG 150-199 mg/dL Borderline high TRIG 200-500 mg/dL High TRIG greater than 500 mg/dL Very high Standard traceable to the Center for Disease Conrtrol and Prevention (CDC) test method. LAB LDLC LDL Cholesterol,Calc ulated 39 Normal 0-100 mg/dL Result Comment: LDL ATP III CLASSIFICATION LDL less than 100 mg/dL Optimal LDL 100-129 mg/dL Near or above optimal LDL 130-159 mg/dL Borderline high LDL 160-189 mg/dL High LDL greater than 189 mg/dL Very high LAB VLDL VLDL CHOLESTEROL 67 mg/dL LAB CHLHDL Chol/HDL Ratio 3.5 <5.0 Performed By: #### LIPID, TS H3 wRFLX, [id number] #### [place] [id number] [facility] TH[facility] STIM HORMONE W/RFLX Collected: 12/13/2024 6:04 AM Status: F Source: [facility] TYPE CODE TESTS RESULT OUT OF RANGE REFERENCE UNITS LAB TSH3 wRFLX Thyroid Stim Hormone w/Rflx 1.95 Normal 0.45-5.33 u[iU]/mL Performed By: #### LIPID, TS H3 wRFLX, [id number] #### [facility] [address] [place], [place] [id number] [facility] VITAMIN D 25 HYDROXY TOTAL Collected: 12/13/2024 6:04 AM Status: F Source: [facility] TYPE CODE TESTS RESULT OUT OF RANGE REFERENCE UNITS LAB [id number] Vitamin D 25 Hydroxy Total 26.8 Low 30-100 ng/mL Result Comment: VITAMIN D ST ATUS 25(OH)VITAMIN D RANGE (ng/mL) Deficient <20 Insufficient 20 to <30 Sufficient 30 to 100 Reference: Abdi MF,Shannon NC, Danyel HICKS, et al. Evaluation,treatment, and prevention of vitamin D deficiency; an Endocrine Society clinical practice guideline. JCEM. 2010; 96(7):1911-30. PERFORMED BY: [place] [id number] PATHOLOGIST SONAR WATCHSTANDER AVRIL LEDESMA M.D. Performed By: #### LIPID, TS H3 wRFLX, [id number] #### [facility] [address] [id number] [facility] ED PATIENT EDUCATION NOTE Observed: 11/2024 5:40 PM Status: F Source: [facility] ED Patient Education Note ED PATIENT SUMMARY Observed: 12/12/2024 5:40 PM Status: F Source: [facility] ED Patient Summary [address] [address] Patient Discharge Instructions Person Information Name: SHEY OBRIEN Age: 74 Years Arrival Date: 12/12/2024 13:24:04 Discharge Diagnosis: Suicidal ideation Primary Care Physician: LATRELL JACK MD Provider Information Primary Provider: Elmer Kohli DO Advanced Tomography Technologist:None The exam and treatment you received in the Emergency Department were for an urgent problem and are not intended as complete care. It is important that you follow up with a doctor, nurse practitioner, or physician???s library serials assistant for ongoing care. If your symptoms [...] opioids can be used to help relieve jeetwdbr-ea-xohdwq pain and are often prescribed following a [...] guidance from the Food and Drug Administration (www.fda.gov/Drugs/ResourcesForYou). ??? Visit www.cdc.gov/drugoverdose to learn about the risks of opioids abuse and overdose. ??? If you believe you may be struggling with addiction, tell your health child care aide and ask for guidance or call [facility]???S National Helpline at 1-067-596-UGBC. b Source: US Department of Health and Human Services/Center for Disease Control & Prevention [facility] Medications Given: Medication Dose Route No medications found. Medication Information: Medications to Continue with No Changes Other [...] (at bedtime). fluticasone nasal (Flonase 0.05 mg/inh Chapin) 2 Sprays Nasal Inhalation every day. losartan [...] (at bedtime) as needed for sleep. Comment: Patient Portal You may access all of your results and other medical record information on our secure patient portal. If you are not signed up for this yet, please contact [employer] at [phone] to get signed up today. SUE Award Nomination The SUE (Diseases Attacking the Immune SYstem) Award is an international recognition program that honors and celebrates the skillful, compassionate care nurses provide every day. Anyone who experiences or observes amazing care being provided by a nurse is encouraged to submit a nomination. To nominate your nurse, use your smart phone to scan the QR code below. You may receive a survey from Elisa Giang asking you to rate your care experience. Your feedback is important and will help us understand what we do well and how we can improve the quality of care we provide to you, your loved ones and our community. It???s an honor to serve you. Thank you for choosing [facility] Patient Education Materials: KARYN Jimenez SHARON , have received the following patient education materials/instructions and have verbalized understanding: Patient Education Materials: Follow-up Instructions: Patient Signature Date Clinician/Nurse Signature Date 12/12/2024 17:40:11 ED CLINICAL SUMMARY Observed: 12/12/2024 5:40 PM Status: F Source: [facility] ED Clinical Summary [place] [address] ED Clinical Summary Person Information Name: SHEY OBRIEN/Herminia Age: 74 Years : 1950 Sex: Female Language: Kuwaiti PCP: LATRELL JACK MD Marital Status: Single [...] 12/12/2024 17:40:09 12/12/2024 17:40:09 12/12/2024 17:40:09 ADDRESS: [address] [place] [id number] PHYS DOC NOTES: MEDICAL INFORMATION: Prescriptions Given: [...] (at bedtime). fluticasone nasal (Flonase 0.05 mg/inh Chapin) 2 Sprays Nasal Inhalation every day. losartan [...] INFORMATION: Instructions: Follow up: DIAGNOSIS: Suicidal ideation U DRUG SCREEN Collected: 5 2:18 PM Status: F Source: [facility] TYPE CODE TESTS RESULT OUT OF RANGE REFERENCE UNITS LAB [id number](LOINC) U Amph Scr NEGATIVE Normal NEGATIVE Result Comment: Negative Cut off: <1000 ng/mL LAB 56276769(LOINC) U Jessica Scr NEGATIVE Normal NEGATIVE Result Comment: Negative Cut off: <200 ng/mL LAB [id number](LOINC) U Benzodia Scr NEGATIVE Normal NEGATIVE Result Comment: Negative Cut off: <200 ng/mL LAB [id number](LOINC) U Cannab Scr NEGATIVE Normal NEGATIVE Result Comment: Negative Cut off: <50 ng/mL LAB [id number](LOINC) U Cocaine Scr NEGATIVE Normal NEGATIVE Result Comment: Negative Cut off: <300 ng/mL LAB 40910490(LOINC) U Opiate Scr NEGATIVE Normal NEGATIVE Result Comment: Negative Cut off: <300 ng/mL LAB [id number](LOINC) U PCP Scr NEGATIVE Normal NEGATIVE Result Comment: Negative Cut off: <25 ng/mL These drug screen results are to be used for medical (i.e., treatment) purposes only. Unconfirmed drug screening results must not be used for non-medical purposes (e.g., employment testing, legal testing). LAB CD:[id number](L OINC) U Fentanyl NEGATIVE Normal NEGATIVE Result Comment: Negative Cut off: <5 ng/mL These drug screen results are to be used for medical (i.e., treatment) purposes only. Unconfirmed drug screening results must not be used for non-medical purposes (e.g., employment testing, legal testing). Performed By: #### [id number] # ### [facility] [address] [place] [address] UA WITH CULT RFLX Collected: 2:18 PM Status: F Source: [facility] TYPE CODE TESTS RESULT OUT OF RANGE REFERENCE UNITS LAB [id number](LOIN C) UA Spec Desc Clean Catch Normal LAB 19191814(IN C) UA Color Light-Yello w Normal Yellow Result Comment: Microscopic readings are only performed on those samples that meet specific criteria set forth by [facility]. LAB 36605057(LOIN C) UA Clarity Clear Normal Clear LAB 26055720(IN C) UA Spec Grav 1.009 Unknown 1.005-1.030 LAB 21372894(IN C) UA pH 5.5 Unknown 5.0-9.0 LAB 40731487(LOIN C) UA Protein Negative Normal Negative mg/dL LAB 55327402(LOIN C) UA Glucose Negative Normal Negative mg/dL LAB 37797057(LOIN C) UA Ketones Negative Normal Negative mg/dL LAB 05798730(LOIN C) UA Bili Negative Normal Negative mg/dL LAB 02190038(LOIN C) UA Blood Negative Normal Negative mg/dL LAB 74043598(LOIN C) UA Nitrite Negative Normal Negative mg/dL LAB 99139983(LOIN C) UA Urobilinogen Negative Normal Negative mg/dL LAB 43008519(LOIN C) UA Leuk Est 75 [place]/uL Abnormal Negative CD:[id number] LAB 67643592(LOIN C) UA Squam Epithelial 0-2 Unknown CD:[id number] LAB 24331745(LOIN C) UA Bacteria 1+ Abnormal Trace /HPF LAB 99864033(LOIN C) UA Mucous Trace Normal Negative CD:[id number] 21614 Performed By: #### [id number] #### [facility] [address] [place] [address] C URINE Observed: 12/12/2024 2:18 PM Status: F Source: [facility] Microbiology PROCEDURE: Urine Culture [R1] SOURCE: U CleanCatch BODY SITE: COLLECTED DATE/TIME: 12/12/2024 14:18 EDT RECEIVED DATE/TIME: 12/12/2024 15:16 EDT START DATE/TIME: 12/12/2024 15:16 EDT FREE TEXT SOURCE: Seun JOVEL, Elmer Kohli DO, Elmer Carrasco FINAL REPORTS Final Report [] Verified Date/Time: 12/14/2024 09:17 EDT >100,000 cfu/ml Escherichia coli SUSCEPTIBILITY RESULTS LEGEND: S=Susceptible, N/R=Not Reported, Blank=Data not available, or drug not advisable or tested, I=Intermediate, ESBL=Extended spectrum beta-lactamase, R=Resistant, TFG=Thymidine-dependent strain, KAYLEE=Beta-lactamase positive, MARCELLO=mcg/m;(mg/L), S*=Predicted susceptible interp, [...] Locations R1: This test was performed at: [facility], [address] [place] [address], [address] , [place], Performed By: #### [id number] # ### [facility] [address] [place] [address] CBC W/ AUTO DIFF Collected: 5 1:50 PM Status: F Source: [facility] TYPE CODE TESTS RESULT OUT OF RANGE REFERENCE UNITS LAB [id number](LOINC) WBC 8.1 Normal 4.0-11.0 E9/L LAB 82275715(LOINC) RBC 4.6 Normal 4.3-5.9 E12/L LAB 15869815(LOINC) HGB 14.1 Normal 12.0-16.0 gm/dL LAB 74190774(LOINC) Hct 40.9 Normal 34.0-46.0 % LAB 28060499(LOINC) RDW 14.7 High 10.9-14.2 % LAB 63183841(LOINC) MCH 30.7 Normal 27.0-34.0 pg LAB 44166884(LOINC) MCHC 34.5 Normal 31.4-36.0 gm/dL LAB 62865568(LOINC) MCV 88.8 Normal 80.0-100.0 fL LAB 53048450(LOINC) MPV 8.0 Normal 6.4-10.8 fL LAB 25772965(LOINC) Platelet 168.0 Normal 150.0-500.0 E9/ L LAB 60393783(LOINC) Neutro Auto 66.0 Normal 36.0-75.0 % LAB 05200316(LOINC) Lymph Auto 24.1 Normal 14.0-50.0 % LAB 65339744(LOINC) [place] Auto 6.8 Normal 4.0-14.0 % LAB 83142414(LOINC) Eos Auto 2.8 Normal 0.0-8.0 % LAB 17961941(LOINC) Basophil Auto 0.3 Normal 0.0-2.0 % LAB 16271266(LOINC) Neutro Absolute 5.4 Normal 2.0-7.5 E9/L LAB 54876024(LOINC) Lymph Absolute 2.0 Normal 1.0-4.0 E9/L LAB 22964129([facility]) [place] Absolute 0.5 Normal 0.2-1.0 E9 /L LAB 83490084([facility]) Eos Absolute 0.2 Normal 0.0-0.5 E9/ L LAB 52804320([facility]) Basophil Absolute 0.0 Normal 0.0-0.2 E9/L Performed By: #### [id number] # ### [facility] [address] [place] [address] EGFR Collected: 1:50 PM Status: F Source: [facility] TYPE CODE TESTS RESULT OUT OF RANGE REFERENCE UNITS LAB 45894770([facility]) eGFR 67 Normal >=59 mL/min/1 .7 3 m2 Performed By: #### [id number] #### [facility] [address] [place] [address] CMP Collected: 12/12/2024 1:50 PM Status: F Source: [facility] TYPE CODE TESTS RESULT OUT OF RANGE REFERENCE UNITS LAB 97016215([facility]) Glucose Lvl 133 Normal 55-199 mg/d L LAB 91778868([facility]) BUN 22 High 5-21 mg/dL LAB 6057184([facility]) Creatinine 0.9 Normal 0.5-1.3 mg/dL LAB 87912613([facility]) Calcium Lvl 9.2 Normal 8.9-11.1 mg/ dL LAB 43778712([facility]) Sodium Lvl 136 Normal 135-145 mmol/ L LAB 61147440([facility]) Potassium Lvl 3.5 Normal 3.5-5.3 mm ol/L LAB 04170966([facility]) Chloride 101 Normal 101-111 mmol/L LAB 04163428([facility]) CO2 28 Normal 21-31 mmol/L LAB 86964046([facility]) Alk Phos 89 Normal 21-98 Int._Un it /L LAB 29049141([facility]) Bili Total 0.6 Normal 0.0-1.1 mg/dL LAB 71571559([facility]) Albumin Lvl 4.0 Normal 3.3-5.0 gm/d L LAB 64368676([facility]) Total Protein 6.9 Normal 6.0-7.8 gm /dL LAB 71662504(LOINC) ALT 20 Normal 6-46 Int._Uni t /L LAB 72330578(LOINC) AST 22 Normal 5-43 Int._Uni t /L LAB 25209085(LOINC) BUN/Creat Ratio 24 High 10-20 No Units LAB 42718170(INC) AGAP 11 Normal 6-16 mEq/L LAB 16882302(LOINC) Globulin 2.9 Normal 1.4-4.0 gm/dL LAB 66101521(INC) A/G Ratio 1.4 Normal 1.1-2.2 Performed By: #### [id number] # ### [facility] [address] [place] [address] ETHANOL Collected: 1:50 PM Status: F Source: [facility] TYPE CODE TESTS RESULT OUT OF RANGE REFERENCE UNITS LAB 08898725([facility]) Ethanol Lvl <10 Normal <=11 mg/d L Performed By: #### [id number] # ### [facility] [address] [place] [address] ED NOTE-PHYSICIAN Observed: 12/12/2024 1:24 PM Status: F Source: [facility] ED Note-Physician Basic Information Time Seen: Elmer [...] culture. MHP evaluated. Patient be placed at [address] Kim. Assessment/Plan Suicidal ideation [...] attack) Historical Hernia Sleep apnea Procedure/Surgical History Esophagogastroduodenoscopy (03/20/2024), Colonoscopy (10/13/2023), Hand tendon [...] a day (at bedtime) Flonase 0.05 mg/inh Chapin, 2 spray(s), Nasal, Daily losartan 25 mg [...] % (12/12/24 13:50:00) MCV: 88.8 fL (12/12/24 13:50:00) MCH: 30.7 pg (12/12/24 13:50:00) MCHC: 34.5 gm/dL (12/12/24 13:50:00) RDW: 14.7 % High (12/12/24 13:50:00) Platelet: 168 E9/L (12/12/24 13:50:00) MPV: 8 fL (12/12/24 13:50:00) Neutro Auto: 66 % (12/12/24 13:50:00) Lymph Auto: 24.1 % (12/12/24 13:50:00) [place] Auto: 6.8 % (12/12/24 13:50:00) Eos Auto: 2.8 % (12/12/24 13:50:00) Basophil Auto: 0.3 % (12/12/24 13:50:00) Neutro Absolute: 5.4 E9/L (12/12/24 13:50:00) Lymph Absolute: 2 E9/L (12/12/24 13:50:00) [place] Absolute: 0.5 E9/L (12/12/24 13:50:00) Eos Absolute: 0.2 E9/L (12/12/24 13:50:00) Basophil Absolute: 0 E9/L (12/12/24 13:50:00) Glucose Lvl: 133 mg/dL (12/12/24 13:50:00) BUN: 22 mg/dL High (12/12/24 13:50:00) Creatinine: 0.9 mg/dL (12/12/24 13:50:00) eGFR: 67 mL/min/1.73 m2 (12/12/24 13:50:00) BUN/Creat Ratio: 24 High (12/12/24 13:50:00) Sodium Lvl: 136 mmol/L (12/12/24 13:50:00) Potassium Lvl: 3.5 mmol/L (12/12/24 13:50:00) Chloride: 101 mmol/L (12/12/24 13:50:00) CO2: 28 mmol/L (12/12/24 13:50:00) AGAP: 11 mEq/L (12/12/24 13:50:00) Calcium Lvl: 9.2 mg/dL (12/12/24 13:50:00) Alk Phos: 89 Int._Unit/L (12/12/24 13:50:00) ALT: 20 Int._Unit/L (12/12/24 13:50:00) AST: 22 Int._Unit/L (12/12/24 13:50:00) Total Protein: 6.9 gm/dL (12/12/24 13:50:00) Albumin Lvl: 4 gm/dL (12/12/24 13:50:00) Globulin: 2.9 gm/dL (12/12/24 13:50:00) A/G Ratio: 1.4 (12/12/24 13:50:00) Bili Total: 0.6 mg/dL (12/12/24 13:50:00) U Amph Scr: NEGATIVE (12/12/24 14:18:00) U Jessica Scr: NEGATIVE (12/12/24 14:18:00) U Benzodia Scr: NEGATIVE (12/12/24 14:18:00) U Cannab Scr: NEGATIVE (12/12/24 14:18:00) U Cocaine Scr: NEGATIVE (12/12/24 14:18:00) U Opiate Scr: NEGATIVE (12/12/24 14:18:00) U PCP Scr: NEGATIVE (12/12/24 14:18:00) U Fentanyl: NEGATIVE (12/12/24 14:18:00) Ethanol Lvl: <10 (12/12/24 13:50:00) UA Spec Desc: Clean Catch (12/12/24 14:18:00) UA Color: Light-Yellow (12/12/24 14:18:00) UA Clarity: Clear (12/12/24 14:18:00) UA Spec Grav: 1.009 (12/12/24 14:18:00) UA pH: 5.5 (12/12/24 14:18:00) UA Protein: Negat (12/12/24 14:18:00) UA Glucose: Negat (12/12/24 14:18:00) UA Ketones: Negat (12/12/24 14:18:00) UA Bili: Negat (12/12/24 14:18:00) UA Blood: Negat (12/12/24 14:18:00) UA Nitrite: Negat (12/12/24 14:18:00) UA Urobilinogen: Negat (12/12/24 14:18:00) UA Leuk Est: 75 [place]/uL Abnormal (12/12/24 14:18:00) UA Squam Epithelial: 0-2 (12/12/24 14:18:00) UA Bacteria: 1+ Abnormal (12/12/24 14:18:00) UA Mucous: Trace (12/12/24 14:18:00) Diagnostic Results No qualifying data available. EKG Results EC12/12/24: SINUS RHYTHM MODERATE VOLTAGE CRITERIA FOR LVH, CONSIDER NORMAL VARIANT [MEETS CRITERIA IN ONE OF: R(aVL), S(V1), R(V5), R(V5/V6)+S(V1)] BORDERLINE ECG Signed By: Elmer Kohli DO 12/12/2024 13:57:59 Result Comment: Electronical ly Signed By: Elmer Kohli DO\.br\Date and Time Signed: 12/12/24 17:26 EDT PROGRESS Observed: 08/07/2024 2:14 PM Status: COMPLETED Source: [facility] HNO ID: [id number] Author: KATARZYNA SNYDER APRN.BAREBACK RIDER Service: ? Author Type: Nurse Practitioner Type: Progress Notes Filed: 08/07/2024 15:37 Note Text: [facility] Clinic Date: [...] completed prior to appointment Katarzyna Snyder, MSN, BAREBACK RIDER August 07, 2024 PROGRESS Observed: 08/07/2024 2:04 PM Status: COMPLETED Source: [facility] HNO ID: [id number] Author: OLGA LIDIA BLAKE MA Service: ? Author Type: Manager Support Services Type: Progress Notes Filed: 08/07/2024 15:37 Note [...] Observed: 08/07/2024 2:00 PM Status: COMPLETED Source: [facility] Office Visit (GENSMN) SHEY OBRIEN ([id number]) 1950 F Date Time Provider Department 1/29/25 2:00 PM KATARZYNA SNYDER During your visit [...] dry Temperature: No Drains: No Katarzyna Snyder APRN.BAREBACK RIDER 08/07/2024 3:37 PM Signed [facility] Clinic Date: [...] completed prior to appointment Katarzyna Snyder, MSN, BAREBACK RIDER August 07, 2024 Referring Provider: BARI CASTILLO [[id number]] Allergies As of Date: 08/07/2024 (No Known Allergies) Date Reviewed: 08/07/2024 Reviewed by: Olga Lidia Blake MA - Fully Assessed Reason for Visit: Post Op [174] Primary Visit Diagnosis:Postoperative visit [Z48.89] Order(s):CT CHEST LINDSAY RICHARD [[id number]] Order #: [id number] FUTURE Prescriptions as of 08/07/2024 - acetaminophen [...] Observed: 07/26/2024 12:32 PM Status: COMPLETED Source: [facility] HNO ID: [id number] Author: NOREEN RODNEY DTR Service: Nutrition Therapy Author Type: Baton Twirler Type: Patient Education Filed: 07/26/2024 14:04 Note [...] Observed: 07/26/2024 11:57 AM Status: COMPLETED Source: [facility] HNO ID: [id number] Author: KRISTIE DIAZ, Naz Service: ? Author [...] Observed: 07/26/2024 9:22 AM Status: COMPLETED Source: [facility] HNO ID: [id number] Author: DERREK MARSHALL RN Service: Care Management [...] Primary Care Physician Primary Care Physician Name/Phone: Latrlel Jack MD Additional Information: Patient d/c ready to home with no skilled needs identified. Patient and bedside RN aware of plan. Family to transport patient home via private auto. SIGNATURE: Derrek Marshall RN PATIENT NAME: Shey Obrien DATE: July 26, 2024 TIME: 9:22 AM CNDS Observed: 07/26/2024 9:04 AM Status: COMPLETED Source: [facility] HNO ID: [id number] Author: KASSY MOHAN APRN.BAREBACK RIDER Service: General Surgery Author Type: Nurse Practitioner [...] IV access Intubation for surgery Anesthesia administration [facility]: Shey Obrien is a 73-year-old female with a PMHx of COPD, former smoker, EDWIN, HTN, GERD, dyslipidemia, TIA, memory loss, chronic back pain and insomnia who presented on 07/24/2024 for a paraesophageal hernia repair with Dr. Boyd. See operative report for details. She recovered in the PACU and transferred to the [facility] for the remainder of her postoperative [...] Attending Provider: Xavier Boyd MD Primary Service: GENS GRUNDFEST PATIENT CONDITION AT DISCHARGE: Stable DISCHARGE DISPOSITION: [...] Medications These medications were sent to e- [facility]/pharmacy #[id number] [place] [address] - [address] [facility] - [phone] [place] [address] [address] [facility] [address] ondansetron 4 mg tablet oxyCODONE IR 5 [...] 1 Active Anticoagulant I have performed the [id number] and relevant services for a total of >30 minutes. SIGNATURE: Kassy Mohan APRN.BAREBACK RIDER DATE: July 26, 2024 TIME: 9:05 AM CBC W AUTO DIFF BLD Collected: 07/26/2024 1:[address] atus: F Source: [facility] Order Comment: Specimen Type : BLOOD SPECIMEN Ordering Facility: [facility] Address: [address] [place] [address] TYPE CODE TESTS RESULT OUT OF RANGE [...] MCHC RBC Auto-mCnc 34.8 30.5-36.0 g/dL LAB 13696-7(LOINC) RDW RBC-Rto 13.9 11.5-15.0 % LAB 777-3(LOINC) Platelet # Bld Auto 143 Low 150-400 k/uL LAB 32786-6(LOINC) PMV Bld Auto 9.9 9.0-12.7 fL LAB 770-8(LOINC) Neutrophils/leuk NFr Bld Auto 59.3 % LAB 751-8(LOINC) Neutrophils # Bld Auto 3.64 1.45-7.50 k/uL LAB 736-9(LOINC) Lymphocytes/leuk NFr Bld Auto 30.9 % LAB 731-0(INC) Lymphocytes # Bld Auto 1.90 1.00-4.00 k/uL LAB 5905-5(LOINC) Monocytes/leuk NFr Bld Auto 7.5 % LAB 742-7(LOINC) Monocytes # Bld Auto 0.46 <0.87 k/uL LAB 713-8(INC) Eosinophil/leuk NFr Bld Auto 1.3 % LAB 711-2(INC) Eosinophil # Bld Auto 0.08 <0.46 k/uL LAB 706-2([facility]) Basophils/leuk NFr Bld Auto 0.3 % LAB 704-7(INC) Basophils # Bld Auto <0.03 <0.11 k/uL LAB 46825-9(INC) Imm Granulocytes/marbella k NFr Bld Auto 0.7 % LAB 67239-0([facility]) Imm Granulocytes # Bld Auto 0.04 <0.10 k/uL LAB 19050-9([facility]) nRBC/100 WBC Bld-Rto 0.0 /100 WBC LAB 771-6([facility]) nRBC # Bld Auto <0.01 <0.01 k/u L LAB 38079-2([facility]) Differential method Bld Auto Performed By: #### 99460-7 # ### [facility] CLIA [id number] [address] [place] [address] [place] BAS METAB 2000 PNL SERPL Collected: 1:13 AM Status: F Source: [facility] Order Comment: Specimen Type : BLOOD SPECIMEN Ordering Facility: [facility] Address: [address] [place] [address] TYPE CODE TESTS RESULT OUT OF RANGE REFERENCE UNITS LAB 2345-7([facility]) Glucose SerPl-mCnc 112 High 74-99 mg/dL Result Comment: The [place] Diabetes Association (ADA) provides guidance for cutoff [...] Standards of Medical Care in Diabetes 2016, [place] [employer] Association. Diabetes Care. 2016.39(Suppl 1). LAB 3094-0(LOINC) BUN SerPl-mCnc 10 7-21 mg/ dL LAB 2160-0(LOINC) Creat SerPl-mCnc 0.92 0.58-0.96 mg/dL LAB 2951-2(LOINC) Sodium SerPl-sCnc 143 136-144 mmol/L LAB 2823-3(LOINC) Potassium SerPl-sCnc 3.4 Low 3.7-5.1 mmol/L LAB 2075-0(LOINC) Chloride SerPl-sCnc 107 98-107 mmol/L LAB 2028-9(LOINC) CO2 SerPl-sCnc 24 22-30 mmo l/L LAB 73920-2(LOINC) Anion Gap SerPl-sCnc 12 8-15 mmol/L LAB 22089-4(LOINC) Calcium SerPl-mCnc 9.0 8.5-10.2 mg/dL LAB 06964-8(LOINC) Creatinine + eGFR Pnl SerPlBld 66 >=60 [...] accurately reflect actual GFR. Performed By: #### 66214-7, 11847-7, 2777-1 #### [facility] CLIA [id number] [address] [place] [address] [place] MAGNESIUM SERPL-MCNC Collected: 07/26/2024 1:13 AM Lyndon meyer: Felecia Source: [facility] Order Comment: Specimen Type : BLOOD SPECIMEN Ordering Facility: [facility] Address: [address] [place] [address] TYPE CODE TESTS RESULT OUT OF RANGE REFERENCE UNITS LAB 97502-1(LOINC) Magnesium SerPl-mCnc 2.0 1.7-2.3 mg/dL Performed By: #### 59245-7, 55802-3, 2777-1 #### [facility] CLIA [id number] [address] [place] [address] [place] PHOSPHATE SERPL-MCNC Collected: 07/26/2024 1:13 AM S tatus: F Source: [facility] Order Comment: Specimen Type : BLOOD SPECIMEN Ordering Facility: [facility] Address: [address] [place] [address] TYPE CODE TESTS RESULT OUT OF RANGE REFERENCE UNITS LAB 2777-1(LOINC) Phosphate SerPl-mCnc 2.5 Low 2.7-4.8 mg/dL Performed By: #### 88233-6, 77781-9, 2777-1 #### [facility] CLIA [id number] [address] [place] [address] [place] CNCO Observed: 07/26/2024 12:00 AM Status: COMPLETED Source: [facility] Letter Text HIGH SENSITIVITY TROPONIN T Collected: 07/25/2024 5:26 PM Status: F Source: [facility] Order Comment: Specimen Type : BLOOD SPECIMEN Ordering Facility: [facility] Address: [address] [place] [address] TYPE CODE TESTS RESULT OUT OF RANGE REFERENCE UNITS LAB 68032-4(LOINC) Troponin T SerPl HS-mCnc 12 High <12 ng/L Performed By: #### HSTNT ### # [facility] CLIA [id number] [address] [place] [address] [place] CASE MGT INIT ASSES Observed: 07/25/2024 2:29 PM Status: COMPLETED Source: [facility] HNO ID: [id number] Author: DERREK MARSHALL RN Service: Care Management Author Type: Registered Nurse Type: Care Mgt Initial Assessment Filed: 07/25/2024 14:30 Note Text: CARE MANAGEMENT: ASSESSMENT AND DISCHARGE PLAN SERVICE DATE: July 25, 2024 SERVICE TIME: 2:29 PM PCP: Latrell Jack MD Primary Contact: Extended Emergency Contact Information Primary Emergency Contact: Alexandria Vanegas Address: [address] [place] [address] Relation: Relative Admission Status: Inpatient Insurance Provider: MEDICARE A AND B Discharge Planning requested by: Per Department Practice Potential Transition Plans To Be Determined Advance Directives Current Advance Directive: None Customer Assistant Attempted to Assist with AD Completion: Yes Action: Education Provided Russell of Choice Explained: Russell of Choice Given: No Reason Not Given: [...] Observed: 07/25/2024 2:27 PM Status: COMPLETED [facility] [id number] Author: DERREK MARSHALL RN Service: Care Management Author Type: Registered Nurse Type: Care Mgt Progress Note Filed: 07/25/2024 14:28 Note Text: CARE MANAGEMENT: ASSESSMENT AND DISCHARGE PLAN SERVICE DATE: July 25, 2024 SERVICE TIME: 2:28 PM PCP: Latrell Jack MD Primary Contact: Extended Emergency Contact Information Primary Emergency Contact: Alexandria Vanegas Address: [address] [place] [address] [facility] Relation: Relative Admission Status: Inpatient Insurance Provider: MEDICARE A AND B Discharge Planning requested by: Per Department Practice Potential Transition Plans To Be Determined Advance Directives Current Advance Directive: None Customer Assistant Attempted to Assist with AD Completion: Yes Action: Education Provided Russell of Choice Explained: Russell of Choice Given: No Reason Not Given: [...] CONTRAST Observed: 10:04 AM Status: F Source: [facility] * * *Final Report* * * DATE [...] (min:sec). Air kerma: 38.9 mGy. RESULT: Preliminary leather lacer: Gastric distention. No dilated bowel in the [...] ESOPHAGEAL TRANSIT, LIKELY RELATED TO POSTOPERATIVE EDEMA. Crucible Packer: KODY Transcribe Date/Time: Jul 25 2024 10:06A Dictated by : NAHID PACHECO MD This examination was interpreted and the report reviewed and electronically signed by: MARTHA CATALAN MD on Jul 25 2024 10:13AM EST [id number] PROGRESS Observed: 07/25/2024 8:54 AM Status: COMPLETED Source: [facility] HNO ID: [id number] Author: YAN MOSER, ? Service: General Surgery [...] and Airways Line Duration Peripheral 07/24/24 0900 [facility] Right Hand 20 Gauge <1 day Peripheral 07/24/24 1111 Left Hand 18 Gauge <1 day SURGERY/PROCEDURE: Procedure(s) and Anesthesia Type: * LAPAROSCOPIC RPR PARAESOPHAGEAL HERNIA W/O FUNDOPLASTY W/ MESH - General PLAN OF CARE Observed: 07/24/2024 7:09 PM Status: COMPLETED Source: [facility] HNO ID: [id number] Author: NENA SEPULVEDA MD Service: General Surgery [...] Observed: 07/24/2024 6:54 PM Status: COMPLETED Source: [facility] HNO ID: [id number] Author: TRIP GRAY RN Service: Nursing Author Type: Registered Nurse Type: Progress Notes Filed: 07/24/2024 18:55 Note Text: [id number] Paged [phone] to notify that patient came up from PACU with a rdz in but no active rdz order. Requesting order to be placed. PROGRESS Observed: 07/24/2024 6:25 PM Status: COMPLETED Source: [facility] HNO ID: [id number] Author: TRIP GRAY RN Service: Nursing Author Type: Registered Nurse Type: Progress Notes Filed: 07/24/2024 18:25 Note Text: Admission/Transfer Note PATIENT NAME: Shey Obrien Patient Location: [place] [address]/[facility]- Room: [place] [address] Patient admitted from PACU via bed in stable condition. Actions taken: Patient oriented to room, call light function, prescribed activities, Patient rights, and Quiet at night. Patient belongings with patient. This note was completed by: Trip Gray CBC W AUTO DIFF BLD Collected: 07/24/2024 6:[address] atus: F Source: [facility] Order Comment: Specimen Type : BLOOD SPECIMEN Ordering Facility: [facility] Address: [address] [place] [address] TYPE CODE TESTS RESULT OUT OF RANGE REFERENCE UNITS LAB 6690-2(LOINC) WBC # Bld Auto 7.18 3.70-11.00 k/uL LAB 789-8(LOINC) RBC # Bld Auto 4.12 3.90-5.20 m/ uL LAB 718-7(LOINC) Hgb Bld-mCnc 13.4 11.5-15.5 g/dL LAB 4544-3([facility]) Hct VFr Bld Auto 38.8 36.0-46.0 % LAB 787-2([facility]) MCV RBC Auto 94.2 80.0-100.0 fL LAB 785-6([facility]) MCH RBC Qn Auto 32.5 26.0-34.0 p g LAB 786-4([facility]) MCHC RBC Auto-mCnc 34.5 30.5-36.0 g/dL LAB 42818-0([facility]) RDW RBC-Rto 13.9 11.5-15.0 % LAB 777-3([facility]) Platelet # Bld Auto 144 Low 150-400 k/uL LAB 27268-9([facility]) PMV Bld Auto 10.0 9.0-12.7 fL LAB 770-8([facility]) Neutrophils/leuk NFr Bld Auto 89.5 % LAB 751-8([facility]) Neutrophils # Bld Auto 6.43 1.45-7.50 k/uL LAB 736-9([facility]) Lymphocytes/leuk NFr Bld Auto 6.7 % LAB 731-0([facility]) Lymphocytes # Bld Auto 0.48 Low 1.00-4.00 k/uL LAB 5905-5([facility]) Monocytes/leuk NFr Bld Auto 3.2 % LAB 742-7([facility]) Monocytes # Bld Auto 0.23 <0.87 k/uL LAB 713-8([facility]) Eosinophil/leuk NFr Bld Auto 0.0 % LAB 711-2([facility]) Eosinophil # Bld Auto <0.03 <0.46 k/uL LAB 706-2([facility]) Basophils/leuk NFr Bld Auto 0.3 % LAB 704-7([facility]) Basophils # Bld Auto <0.03 <0.11 k/uL LAB 13270-0([facility]) Imm Granulocytes/marbella k NFr Bld Auto 0.3 % LAB 22426-6([facility]) Imm Granulocytes # Bld Auto <0.03 <0.10 k/uL LAB 33213-2([facility]) nRBC/100 WBC Bld-Rto 0.0 /100 WBC LAB 771-6(LOINC) nRBC # Bld Auto <0.01 <0.01 k/u L LAB 13263-3(INC) Differential method Bld Auto Performed By: #### 07967-9 # ### [facility] CLIA [id number] [address] [facility] [place] [address] [place] BAS METAB 2000 PNL SERPL Collected: 6:13 PM Status: F Source: [facility] Order Comment: Specimen Type : BLOOD SPECIMEN Ordering Facility: [facility] Address: [address] [place] [address] TYPE CODE TESTS RESULT OUT OF RANGE REFERENCE UNITS LAB 2345-7(LOINC) Glucose SerPl-mCnc 171 High 74-99 mg/dL Result Comment: The [place] Diabetes Association (ADA) provides guidance for cutoff [...] Standards of Medical Care in Diabetes 2016, [place] [employer]. Diabetes Care. 2016.39(Suppl 1). LAB 3094-0(LOINC) BUN SerPl-mCnc 10 7-21 mg/ dL LAB 2160-0(LOINC) Creat SerPl-mCnc 0.83 0.58-0.96 mg/dL LAB 2951-2(LOINC) Sodium SerPl-sCnc 141 136-144 mmol/L LAB 2823-3(LOINC) Potassium SerPl-sCnc 4.0 3.7-5.1 mmol/L LAB 2075-0(LOINC) Chloride SerPl-sCnc 105 98-107 mmol/L LAB 2028-9(LOINC) CO2 SerPl-sCnc 21 Low 22-30 mmo l/L LAB 55228-6(LOINC) Anion Gap SerPl-sCnc 15 8-15 mmol/L LAB 72612-5(LOINC) Calcium SerPl-mCnc 9.3 8.5-10.2 mg/dL LAB 83596-5(LOINC) Creatinine + eGFR Pnl SerPlBld 75 >=60 [...] accurately reflect actual GFR. Performed By: #### 08699-4, HSTNT, 25152-2, 2776-1 #### [facility] CLIA [id number] [address] [place] [address] [place] HIGH SENSITIVITY TROPONIN T Collected: 07/24/2024 6:13 PM Status: F Source: [facility] Order Comment: Specimen Type : BLOOD SPECIMEN Ordering Facility: [facility] Address: [address] [place] [address] TYPE CODE TESTS RESULT OUT OF RANGE REFERENCE UNITS LAB 19467-7([facility]) Troponin T SerPl HS-mCnc 8 <12 ng/L Performed By: #### 73340-6, HSTNT, 45475-7, 2776-1 #### [facility] CLIA [id number] [address] [place], [place] [address] [place] MAGNESIUM SERPL-MCNC Collected: 07/24/2024 6:13 PM S tatus: F Source: [facility] Order Comment: Specimen Type : BLOOD SPECIMEN Ordering Facility: [facility] Address: [address] [place] [address] TYPE CODE TESTS RESULT OUT OF RANGE REFERENCE UNITS LAB 70752-7([facility]) Magnesium SerPl-mCnc 1.7 1.7-2.3 mg/dL Performed By: #### 80874-8, HSTNT, 75421-1, 7-1 #### [facility] CLIA [id number] [address] [place] [address] [place] PHOSPHATE SERPL-MCNC Collected: 07/24/2024 6:13 PM S tatus: F Source: [facility] Order Comment: Specimen Type : BLOOD SPECIMEN Ordering Facility: [facility] Address: [address] [place] [address] TYPE CODE TESTS RESULT OUT OF RANGE REFERENCE UNITS LAB 2777-1(LOINC) Phosphate SerPl-mCnc 3.6 2.7-4.8 mg/dL Performed By: #### 74835-7, HSTNT, 59671-2, 2777-1 #### [facility] CLIA [id number] [address] [place] [address] [place] ANES POSTPROC EVAL Observed: 07/24/2024 3:38 PM Status: COMPLETED Source: [facility] HNO ID: [id number] Author: FLOR SNOW MD Service: ? Author Type: Physician Type: Anesthesia Postprocedure Evaluation Filed: 07/24/2024 15:38 Note Text: POST ANESTHESIA EVALUATION NOTE : 1950 Procedure Summary Date: 07/24/24 [address] An[address]hesia Start: 1055 Anesthesia Stop: 1430 Procedure: [...] July 24, 2024 TIME: 3:38 PM CSN: [id number] BRIEF OP NOT Observed: 07/24/2024 2:15 PM Status: COMPLETED Source: [facility] HNO ID: [id number] Author: YAN MOSER, Naz Service: General Surgery Author Type: Physician Type: Brief Op Note Filed: 07/24/2024 14:16 Note Text: BRIEF OPERATIVE / PROCEDURE NOTE LOG ID: [id number] SURGERY/PROCEDURE DATE: 07/24/2024 INCISION/PROCEDURE START TIME: 11:37 AM INCISION CLOSE/PROCEDURE END TIME: 2:12 PM SURGEON(S)/PROCEDURALIST(S) AND SMALLTALK DEVELOPER(S): Surgeons and Role: * Xavier Boyd MD [...] 24, 2024 TIME: 2:15 PM PAGER/CONTACT #: [phone] ANES PROCEDURE NOTE Observed: 07/24/2024 11:23 AM Status: COMPLETED Source: [facility] HNO ID: [id number] Author: BETTY ALLEN APRN.MILL WORK Service: ? Author Type: Nurse Health Administrator Type: Anesthesia Procedure Notes Filed: 07/24/2024 11:23 Note Text: ANESTHESIOLOGY PROCEDURE NOTE Airway General Information Procedure Start Time/Medication Administration: 07/24/2024 11:09 AM Procedure End Time: 07/24/2024 11:09 AM Patient location during procedure: OR Timeout Performed Pre-procedure: timeout performed Consent Obtained: Yes Patient identity confirmed: arm band, care juice bar team member and patient Staffing MILL WORK: Betty Allen APRN.MILL WORK Performed by: ELIZABETH Indications and Patient Condition Indications for airway management: anesthesia Preoxygenated: yes anesthesia circuit Patient position: reverse Trendelenburg, sniffing and ramp Method: rapid sequence Final Airway Details Final airway type: endotracheal airway Final Endotracheal Airway: ETT Cuffed: yes Successful intubation technique: video laryngoscopy Devices used: Instapio Endotracheal tube insertion site: oral Blade size: #3 ETT size (mm): 7.0 Measured from: lips Measurement (cm): 21 Placement verified by: capnometry Cormack-Lehane Classification: grade I - full view of glottis Number of attempts at approach: 1 Airway not difficult SIGNATURE: Betty Allen APRN.CRNA PATIENT NAME: Shey Obrien DATE: July 24, 2024 TIME: 11:23 AM CSN: [id number] ANES PROCEDURE NOTE Observed: 07/24/2024 11:22 AM Status: COMPLETED Source: [facility] ID: [id number] Author: BETTY ALLEN APRN.MILL WORK Service: ? Author Type: Nurse Health Administrator Type: Anesthesia Procedure Notes Filed: 07/24/2024 11:23 Note Text: ANESTHESIOLOGY PROCEDURE NOTE PIV General Information Procedure Start Time/Medication Administration: 07/24/2024 11:11 AM Procedure End Time: 07/24/2024 11:11 AM Patient Location: OR Staffing MILL WORK: Betty Allen APRN.MILL WORK Performed by: ELIZABETH Preparation Sterility Preparation: hand [...] July 24, 2024 TIME: 11:22 AM CSN: [id number] OPERATIVE NO Observed: 07/24/2024 10:55 AM Status: COMPLETED Source: [facility] HNO ID: [id number] Author: XAVIER BOYD MD Service: General Surgery Author Type: Physician Type: Operative Report Filed: 07/24/2024 14:31 Note Text: OPERATIVE/PROCEDURE REPORT LOG ID: [id number] SURGERY/PROCEDURE DATE: 07/24/2024 INCISION/PROCEDURE START TIME: 11:37 AM INCISION CLOSE/PROCEDURE END TIME: 2:12 PM SURGEON(S)/PROCEDURALIST(S) AND SMALLTALK DEVELOPER(S): Surgeons and Role: * Xavier Boyd MD [...] the left and right subcostal regions. An library serials assistant 5 mm trocar was placed in [...] retroesophageal window was created and a 1/4? [place] drain was used to encircle the esophagus [...] sutures to the left upper abdomen. The [place] drain and liver retractor were removed. The [...] required to assist with this case. The library serials assistant performed retraction and assisted with exposure. [...] Observed: 07/24/2024 10:29 AM Status: COMPLETED Source: [facility] ID: [id number] Author: ABDELRAHMAN HE MD Service: General Surgery Author Type: Resident Type: Plan of Care Filed: 07/24/2024 10:30 Note Text: Patient consented for study? Yes STUDY TITLE: MVP Trial: Mesh Vs Pledgets for repair of paraesophageal hernia repair: a randomized, blinded, parallel group trial IRB NO.: #[id number] STAVE CUTTER: Jermaine Ramirez MD COORDINATOR/Research Nurse/Instructional Technologist: Abdelrahman He MD Phone/email: [phone], [email or web address] Consenting was performed in person [...] CRITERIA Yes No 1. The patient lacks [place] language fluency or cannot understand the consent [...] Observed: 07/24/2024 9:15 AM Status: COMPLETED Source: [facility] ID: [id number] Author: FLOR SNOW MD Service: ? Author Type: Physician Type: Anesthesia Preprocedure Evaluation Filed: 07/24/2024 09:16 Note Text: ANESTHESIOLOGY DAY OF SURGERY NOTE : 1950 Procedure Information Date/Time: 07/24/24 1051 Procedure: LAPAROSCOPIC RPR PARAESOPHAGEAL HERNIA W/O FUNDOPLASTY W/ MESH (Abdomen) Location: [facility] Surgeons: Xavier Boyd MD [...] July 24, 2024 TIME: 9:15 AM CSN: [id number] PROGRESS Observed: 07/23/2024 2:10 PM Status: COMPLETED Source: [facility] HNO ID: [id number] Author: RAMIREZ POSEY RT(R) Service: Radiology Author Type: Technologist [...] PATIENT PRESENTS WITH AN IMPLANTABLE OR ATTACHED BUSINESS ANALYST SALES OPERATIONS: No RADIOLOGY DEPARTMENT: General X-ray: Exam(s) Completed: Chest X-Ray PERIPHERAL IV DATA: Not applicable SIGNED BY: RT Liu(R) July 23, 2024 1:59 PM XR CHEST 2V FRONTAL/LAT Observed: 2024 1:58 PM Status: F Source: [facility] * * *Final Report* * * DATE [...] soft tissues: Unremarkable. IMPRESSION: Large hiatal hernia. Crucible Packer: KODY Transcribe Date/Time: Jul 24 2024 7:28A Dictated by : JARVIS HUGO MD This examination was interpreted and the report reviewed and electronically signed by: JARVIS HUGO MD on Jul 24 2024 7:30AM EST [id number] HISTORY PHYSICAL Observed: 07/23/2024 1:07 PM Status: COMPLETED Source: [facility] HNO ID: [id number] Author: JAMIL DELACRUZ PA-C Service: ? Author Type: Physician Pickling Drum Operator Type: H&P Filed: 07/23/2024 14:03 Note Text: [...] Admin: COVID-19 vaccine, age 12+ yr, bivalent (OSSIANIX) 04/12/2021 Imm Admin: COVID-19 original vaccine, age 12+ yr, monovalent (OSSIANIX - PURPLE TOP) Only the first 3 [...] pain, CHF, congenital heart defect, DVT/PE, recent CT and murmur/valvular heart disease. GI: See HPI. [...] 404 QTC Calculation (Bazett) 423 Calculated P Frazee 32 Calculated R Frazee 14 Calculated T Frazee 54 Impression NORMAL SINUS RHYTHM NORMAL ECG No results found for this or any previous visit (from the past 50225 hour(s)). Instructions Given to Patient: Instructions located in the after visit summary. Patient given verbal and written preop instructions and voices comprehension and compliance. SIGNATURE: Jamil Delacruz PA-C PATIENT NAME: Shey Obrien DATE: July 23, 2024 TIME: 1:07 PM PAGER/CONTACT #: ECG COMPLETE Observed: 07/23/2024 12:08 PM Status: F Source: [facility] Ventricular Rate : 66 BPM Atrial Rate : 66 BPM P-R Interval : 158 ms QRS Duration : 78 ms Q-T Interval : 404 ms QTC Calculation(Bazett) : 423 ms Calculated P Frazee : 32 degrees Calculated R Frazee : 14 degrees Calculated T Frazee : 54 degrees NORMAL SINUS RHYTHM NORMAL ECG Confirmed by MD MCCLENDON HEBA ([id number]) on 07/29/2024 12:16:17 PM NAME : SHEY OBRIEN PID : [id number] : 1950 Gender : Female Race : ORD : [id number] Procedure Date : Jul 23 2024 12:08:10 Edit Date : Jul 29 2024 12:16:18 Diagnosis: NORMAL SINUS RHYTHM NORMAL ECG Confirmed by MD MCCLENDON HEBA ([id number]) on 07/29/2024 12:16:17 PM Test Reason : Location : 119 : A17 A17 Overread By : MD MCCLENDON HEBA Edited By : MD MCCLENDON HEBA Referred By : XAVIER BOYD Acquired by : SADE HA BLOOD TYPE Collected: 5 11:47 AM Status: F Source: [facility] Order Comment: Specimen Type : BLOOD SPECIMEN Ordering Facility: [facility] Address: [address] [place] [address] TYPE CODE TESTS RESULT OUT OF RANGE REFERENCE UNITS LAB [id number] ABO B LAB [id number] RH Positive Performed By: #### CONABO ## ## [facility] CLIA [id number] [address] [place] [address] [place] PT PNL PPP Collected: 5 11:41 AM Status: F Source: [facility] Order Comment: Specimen Type : BLOOD SPECIMEN Ordering Facility: [facility] Address: [address] [place] [address] TYPE CODE TESTS RESULT OUT OF RANGE REFERENCE UNITS LAB 5902-2(LOINC) Prothrombin time 11.4 9.7-13.0 sec LAB 6301-6(LOINC) INR PPP 1.1 0.9-1.3 Result Comment: Vitamin K An tagonist (VKA) Therapeutic Range: INR 2 to 3 (Target INR of 2.5) Note: For patients treated with VKA drugs, such as warfarin, the [place] [employer] 2012 Guideline recommends [...] NUNEZ, et al. Chest 2012, 141:7S-47S Keisha BORJAS, et al. [facility] 2017, 70: 252-289 Performed By: #### 55226-2, 86347-2 #### [facility] CLIA [id number] [address] [place] [address] [place] APTT PPP Collected: 11:41 AM Status: F Source: [facility] Order Comment: Specimen Type : BLOOD SPECIMEN Ordering Facility: [facility] Address: [address] [place] [address] TYPE CODE TESTS RESULT OUT OF RANGE REFERENCE UNITS LAB 47763-7(LOINC) aPTT PPP 25.5 23.0-32.4 sec Performed By: #### 24240-5, 66828-2 #### [facility] CLIA [id number] [address] [place], [place] [address] [place] CBC W AUTO DIFF BLD Collected: 07/23/2024 11:41 AM S tatus: F Source: [facility] Order Comment: Specimen Type : BLOOD SPECIMEN Ordering Facility: [facility] Address: [address] [place] [address] TYPE CODE TESTS RESULT OUT OF RANGE REFERENCE UNITS LAB 6690-2(LOINC) WBC # Bld Auto 4.84 3.70-11.00 k/uL LAB 789-8([facility]) RBC # Bld Auto 4.12 3.90-5.20 m/ uL LAB 718-7([facility]) Hgb Bld-mCnc 13.4 11.5-15.5 g/dL LAB 4544-3([facility]) Hct VFr Bld Auto 39.0 36.0-46.0 % LAB 787-2([facility]) MCV RBC Auto 94.7 80.0-100.0 fL LAB 785-6([facility]) MCH RBC Qn Auto 32.5 26.0-34.0 p g LAB 786-4([facility]) MCHC RBC Auto-mCnc 34.4 30.5-36.0 g/dL LAB 31301-6([facility]) RDW RBC-Rto 13.9 11.5-15.0 % LAB 777-3([facility]) Platelet # Bld Auto 169 150-400 k/uL LAB 18462-8([facility]) PMV Bld Auto 10.2 9.0-12.7 fL LAB 770-8([facility]) Neutrophils/leuk NFr Bld Auto 47.6 % LAB 751-8([facility]) Neutrophils # Bld Auto 2.30 1.45-7.50 k/uL LAB 736-9([facility]) Lymphocytes/leuk NFr Bld Auto 41.3 % LAB 731-0([facility]) Lymphocytes # Bld Auto 2.00 1.00-4.00 k/uL LAB 5905-5([facility]) Monocytes/leuk NFr Bld Auto 6.2 % LAB 742-7([facility]) Monocytes # Bld Auto 0.30 <0.87 k/uL LAB 713-8([facility]) Eosinophil/leuk NFr Bld Auto 3.7 % LAB 711-2([facility]) Eosinophil # Bld Auto 0.18 <0.46 k/uL LAB 706-2([facility]) Basophils/leuk NFr Bld Auto 0.8 % LAB 704-7([facility]) Basophils # Bld Auto 0.04 <0.11 k/uL LAB 18329-6([facility]) Imm Granulocytes/marbella k NFr Bld Auto 0.4 % LAB 67055-0([facility]) Imm Granulocytes # Bld Auto <0.03 <0.10 k/uL LAB 53512-0([facility]) nRBC/100 WBC Bld-Rto 0.0 /100 WBC LAB 771-6([facility]) nRBC # Bld Auto <0.01 <0.01 k/u L LAB 81084-5([facility]) Differential method Bld Auto Performed By: #### 23192-7 # ### [facility] CLIA [id number] [address] [place] [address] TYPE AND SCREEN,30 DAY Collected: 07/23 11:41 AM Status: F Source: [facility] Order Comment: Specimen Type : BLOOD SPECIMEN Ordering Facility[facility] Address: [address] [place] [address] TYPE CODE TESTS RESULT OUT OF RANGE REFERENCE UNITS LAB [id number] ABO B LAB [id number] RH Positive LAB [id number] ANTIBODY SCREEN Negative Performed By: #### [id number] ## ## [facility] CLIA [id number] [address] [place] [address] OF JENNIFER COMP METAB 2000 PNL SERPL Collected: 11:41 AM Status: F Source: [facility] Order Comment: Specimen Type : BLOOD SPECIMEN Ordering Facility: [facility] Address: [address] [place] [address] TYPE CODE TESTS RESULT OUT OF RANGE REFERENCE UNITS LAB 2885-2([facility]) Prot SerPl-mCnc 6.9 6.3-8.0 g/dL LAB 1751-7([facility]) Albumin SerPl-mCnc 4.2 3.9-4.9 g/dL LAB 46842-0([facility]) Calcium SerPl-mCnc 9.4 8.5-10.2 mg/dL LAB 1975-2([facility]) Bilirub SerPl-mCnc 0.5 0.2-1.3 mg/dL LAB 6768-6([facility]) ALP SerPl-cCnc 111 34-123 U/L LAB 1920-8(INC) AST SerPl-cCnc 28 13-35 U/L LAB 1742-6(LOINC) ALT SerPl-cCnc 26 7-38 U/L LAB 2345-7(LOINC) Glucose SerPl-mCnc 155 High 74-99 mg/dL Result Comment: The [place] Diabetes Association (ADA) provides guidance for cutoff [...] Standards of Medical Care in Diabetes 2016, [place] [employer]. Diabetes Care. 2016.39(Suppl 1). LAB 3094-0(LOINC) BUN SerPl-mCnc 13 7-21 mg/ dL LAB 2160-0(LOINC) Creat SerPl-mCnc 0.99 High 0.58-0.96 mg/dL LAB 2951-2(LOINC) Sodium SerPl-sCnc 141 136-144 mmol/L LAB 2823-3(LOINC) Potassium SerPl-sCnc 4.3 3.7-5.1 mmol/L LAB 2075-0(LOINC) Chloride SerPl-sCnc 108 High 98-107 mmol/L LAB 2028-9(LOINC) CO2 SerPl-sCnc 23 22-30 mmo l/L LAB 38054-8(LOINC) Anion Gap SerPl-sCnc 10 8-15 mmol/L LAB 80330-3(LOINC) Creatinine + eGFR Pnl SerPlBld 61 >=60 mL/min/1 .73m??? Result Comment: Estimated Gl omerular Filtration Rate (eGFR) is calculated using the 202 CKD-EPI creatinine equation. This equation utilizes serum creatinine, sex, and age as parameters. The creatinine assay has traceable calibration to isotope dilution-mass spectrometry. Refer to KDIGO guidelines for clinical interpretation. In patients with unstable renal function, e.g. those with acute kidney injury, the eGFR may not accurately reflect actual GFR. Performed By: #### 75268-4 # ### [facility] CLIA [id number] [address] [place] [address] STATES OF JENNIFER PROGRESS Observed: 04/29/2024 12:08 PM Status: COMPLETED Source: [facility] HNO ID: [id number] Author: XAVIER BOYD MD Service: ? Author [...] blinded, parallel group trial IRB NO.: #[id number] STAVE CUTTER: Pa Prakash MD COORDINATOR/Research Nurse/Instructional Technologist: Abdelrahman He MD Phone/email: [phone], [email or web address] Consenting was performed in person [...] CRITERIA Yes No 1. The patient lacks Kuwaiti language fluency or cannot understand the consent [...] Observed: 04/29/2024 11:16 AM Status: COMPLETED Source: [facility] HNO ID: [id number] Author: YAN MOSER, ? Service: ? Author Type: Physician Type: Progress Notes Filed: 04/29/2024 12:10 Note Text: [facility] - HISTORY [...] UGI reviewed and uploaded. Large Type III [facility]. ASSESSMENT/PLAN: chani Obrien is a 73 year [...] Observed: 04/29/2024 11:00 AM Status: COMPLETED Source: [facility] Office Visit (GENSMN) SHEY OBRIEN ([id number]) 1950 F Date Time Provider Department 04/29/24 11:00 AM XAVIER BOYDMaximo During your visit today, we recorded the following information about you: Temperature Pulse Blood pressure Weight 98.5 degrees 90/minute 144/65 98.9 kg Height 1.524 m Siomara Fiore MA 04/29/2024 11:01 AM Signed What is the reason for your visit today? Consult Who is your referring physician? Dafne Spears Are you having poor oral intake? YES Have you had unintentional weight loss of 15 lbs/7 Kg in the last 3-6 months? NO Bowels: soft, more frequent Wound: none Temperature: No Drains: No Yan Moser 04/29/2024 12:10 PM Signed [facility] - HISTORY AND PHYSICAL SUBJECTIVE: [...] Yan Moser MD General Surgery Beffa, Xavier Acharya MD 04/29/2024 12:10 PM Signed [...] blinded, parallel group trial IRB NO.: #[id number] STAVE CUTTER: Pa Prakash MD COORDINATOR/Research Nurse/Instructional Technologist: Abdelrahman He MD Phone/email: [phone], [email or web address] Consenting was performed in person prior [...] CRITERIA Yes No 1. The patient lacks Kuwaiti language fluency or cannot understand the consent form/study procedures [] [x] 2. The patient is [] [x] 3. The patient has a BMI >45 [] [x] 4. The patient has undergone previous hiatal hernia repair [] [x] 5. The patient will undergo paraesophageal hernia repair with a concurrent bariatric procedure to reduce stomach volume [] [x] Referring Provider: DAFNE SPEARS [[id number]] Allergies As of Date: 04/29/2024 (No Known Allergies) Date Reviewed: 04/29/2024 Reviewed by: Siomara Fiore MA - Fully Assessed Reason for [...] Paraesophageal hernia [K44.9] 04/29/2024 Visit Notes: >> Siomara Fiore MA Mon Apr 29, 2024 10:50 AM Status: Signed What is the reason for your visit today? Consult Who is your referring physician? Dafne Spears Are you having poor oral intake? YES Have you had unintentional weight loss of 15 lbs/7 Kg in the last 3-6 months? NO Bowels: soft, more frequent Wound: none Temperature: No Drains: No Level of Service: OFFICE/OUTPATIENT [facility] 45 MINUTES [26985] Encounter Status:Closed by XAVIER BOYD on 04/29/24 CNPN Observed: 04/22/2024 12:00 AM Status: COMPLETED Source: [facility] Telephone (BiancaMedN) SHEY OBRIEN ([id number]) 1950 F Date Time Provider Department 04/22/24 ASHLIE CALDERON During your visit today, we recorded the following information about you: Ashlie Calderon 04/22/2024 5:39 PM Signed Spoke with PT she state no prior surgeries Allergies As of Date: 04/22/2024 (Not on File) Date Reviewed: Never Reviewed Problem List As Of Date: 04/22/2024 (None) Encounter Status:Closed by ASHLIE CALDERON on 04/22/24 ALLERGIES DATE TYPE / CODE NAME / CODE REACTION SEVERITY SOURCE 12/12/2024 Drug Allergy/91494958 2(SNOMED CT) No Known Allergies/X949549508 (RXNORM) Unknown [facility] DR/372138781(SNO MED CT) No Known Allergies [facility] Drug Class/657485838( SNOMED CT) NO KNOWN ALLERGIES [facility] ENCOUNTERS ADMIT/DISCHARGE ACCOUNT NUMBER ADMITTING ENCOUNTER CLASS LOCATION SOURCE 02/24/2025/02/25/20 [id number] Ambulatory Building:[facility] 01/21/2025 [id number] Erik Kim [facility]BHCREDITIMO E [facility] 12/30/2024/12/31/19 [id number] Ambulatory PM [facility] ding:PM [facility] 12/12/2024/12/17/19 [id number] Erik Kim [facility]: [id number]: 2 [facility] 12/12/2024/12/13/19 25 [id number] [facility]: ED-13Bed: CD:[id number] [facility] 12/12/2024 [id number] [facility]EDRoom: AlcoveBed: 01 [facility] 12/12/2024 [id number] [facility] :EDRoom: ED-13Bed: CD:[id number] [facility] 12/04/2024/12/05/19 25 [id number] Ambulatory Building:[facility] 09/26/2024/09/27/19 25 [id number] Ambulatory Building:[facility] 08/27/2024/08/27/19 25 [id number] Ambulatory Building:[facility] 08/07/2024/08/07/19 [id number] [facility] 07/24/2024/07/26/19 25 [id number] XAVIER BOYD [facility]L964Fad m: [id number]: H071-11 [facility] 07/23/2024/07/23/19 [id number] [facility]:XR21 [facility] 07/23/2024/07/23/19 [id number] Ambulatory [facility] HospitalBuil ding:EKGA [facility] 07/23/2024/07/23/19 [id number] Ambulatory [facility] HospitalBuil ding:AD12 [facility] 07/23/2024/07/23/19 25 [id number] Ambulatory [facility] Hospital[facility] ding:ANA [facility] 07/23/2024/07/23/19 [id number] Ambulatory [facility] HospitalBuil ding:LB15 [facility] 06/24/2024/06/24/20 24 [id number] [facility]06/10/20 24 [id number] [facility] 05/30/2024/05/30/20 24 [id number] Ambulatory Building:R NEURO [facility] 05/27/2024/05/27/20 24 [id number] [facility] 05/15/2024/05/15/20 24 [id number] Ambulatory Building:[facility] 05/06/2024/05/06/20 24 [id number] Ambulatory [facility]:PM Nadira [facility] 04/29/2024/04/29/20 24 [id number] Ambulatory [facility] HospitalBuil ding:GENS [facility] 04/15/2024/04/15/20 24 [id number] [facility] 04/11/2024/04/11/20 24 [id number] Ambulatory Building: NEURO [facility] PAYERS ENCOUNTER GUARANTOR PAYER SUBSCRIBER SOURCE 02/24/2025 SHEY CASTANEDAB: [place] [address]Lud: (HP) Primary Insurance:MEDICAREPolic y Number: [id number] Date:2486-21-33Hddg Name:Medicare SHEY CASTANEDAB: [id number] [place] [address] [facility] 01/21/2025 Shey [place]y [place], [place] [address]Lch: (HP) Primary Insurance:Self PayPolicy Number: Effective Date:2024-12-12 [facility] 12/30/2024 Shey CastanedaB: [place] [address] Primary Insurance:Berkley LopezAspirus Ironwood HospitalPolicy Number: Effective Date:8926-86-83Ckeo Name:MEDP [address] [address], [place] [address]CO: Shey CastanedaB: [id number] [place] [address] [facility] 12/30/2024 Secondary Insurance:HumanaPolicy Number: Effective Date:5228-93-73Enjo Name:COMP [address] [place] [address]PE: Shey CastanedaB: [id number] [place] [address] [facility] 12/12/2024 [place], [place] [address]Fjn: (HP) Primary Insurance:MedicarePolic y Number: [id number] Date:2024-12-12 Shey CastanedaB: [id number] [place], [place] [address]Kam: (HP) [facility] 12/12/2024 Secondary Insurance:HumanaPolicy Number: [id number] Date:4531-77-28[address] [address], [place] [address]PS: Shey ObrienBON: [id number] [facility] HospitalmaggieCARLSBAD, [place] [address]Luy: (HP) [facility] 12/12/2024 Tertiary Insuran ce:Self PayPolicy Number: Effective Date:2024-12-12 NOT GIVENUNK [facility] 12/12/2024 SHEY TINEOANUJA: [place] STTel: ~([phone] (HP) Primary Insurance:MEDICAREPolic y Number: [id number] Date:7922-69-69[address] [address], [place] [address]BT: SHEY JOYCELYN [facility] 12/12/2024 Secondary Insurance:HUMANAPolicy Number: [id number] Date:2024-12-12 SHEY LEE ANNSHORTY [facility] 12/12/2024 SHEY LEONELB: [place] STTel: ~(4 19 (HP) Primary Insurance:MEDICAREPolic y Number: [id number] Date:8115-55-61[address] [address], [place] [address]YR: SHEY HIRSCH [facility] 12/12/2024 Secondary Insurance:HUMANAPolicy Number: [id number] Date:2024-12-12 SHEY SHERLYLEVI [facility] 12/12/2024 SHEY TINEOANUJA: [place] STTel: ~([phone] 19 (HP) Primary Insurance:MEDICAREPolic y Number: [id number] Date:6775-84-22[address] [address], [place] [address]DG: SHEY HIRSCH [facility] 12/12/2024 Secondary Insurance:HUMANAPolicy Number: [id number] Date:2024-12-12 SHEY HIRSCH [facility] 12/04/2024 SHEY CASTANEDAB: [place] [address]Tel: (HP) Primary Insurance:MEDICAREPolic y Number: [id number] Date:9289-73-72Daqi Name:Medicare SHEY CASTANEDAB: [id number] [place] [phone] [facility] 09/26/2024 SHEY CASTANEDAB: [place] [address]Tel: (HP) Primary Insurance:MEDICAREPolic y Number: [id number] Date:9374-47-91Lcqi Name:Medicare SHEY CASTANEDAB: [id number] [place] [id number] [facility] 09/26/2024 Secondary Insurance:HUMANAPolicy Number: [id number] Date:2024-07-10 SHEY OBRIENDOB: [id number] [place] [phone] [facility] 08/27/2024 SHEY OBRIENDOB: [place] [address]Veo: (HP) Primary Insurance:MEDICAREPolic y Number: [id number] Date:7734-68-16Nnht Name:Medicare SHEY OBRIENDOB: [id number] [place] [address] [facility] 08/27/2024 Secondary Insurance:HUMANAPolicy Number: [id number] Date:2016-10-08 SHEY Diaz LEE ANNANDRABON: [id number] [place] [address] [facility] 08/07/2024 Primary Insurance:MEDICARE A AND BPolicy Number: [id number] Date:0799-69-50Ughu Name:Ashly CASTANEDACandis: [id number] [address] 08/07/2024 Secondary Insurance:HUMANA MEDICARE SUPPLEMENTPolicy Number: [id number] Date:2281-58-02Zdyg Name:Alex CASTANEDACandis: [id number] [address] 07/24/2024 Primary Insurance:MEDICARE A AND BPolicy Number: [id number] Date:6585-61-10Bgvf Name:Ashly OBRIENBON: [id number] [address] 07/24/2024 Secondary Insurance:HUMANA MEDICARE SUPPLEMENTPolicy Number: [id number] Date:7979-85-55Wpqo Name:Alex CASTANEDACandis: [id number] [address] 07/23/2024 Primary Insurance:MEDICARE A AND BPolicy Number: [id number] Date:3295-14-87Iffp Name:Ashly CASTANEDACandis: [id number] [address] 07/23/2024 Secondary Insurance:HUMANA MEDICARE SUPPLEMENTPolicy Number: [id number] Date:4211-01-84Zfqu Name:Alex CASTANEDACandis: [id number] [address] 07/23/2024 Primary Insurance:MEDICARE A AND BPolicy Number: [id number] Date:7800-61-09Uspa Name:Ashly OBRIENBON: [id number] [facility] [place] [address] [facility] 07/23/2024 Secondary Insurance:HUMANA MEDICARE SUPPLEMENTPolicy Number: [id number] Date:1569-84-15Kwig Name:Alex CASTANEDAB: [id number] [facility] [place] [address] [facility] 07/23/2024 Primary Insurance:MEDICARE A AND BPolicy Number: [id number] Date:3221-38-78Xnek Name:Ashly CASTANEDAB: [id number] [facility]11 [facility] 07/23/2024 Secondary Insurance:HUMANA MEDICARE SUPPLEMENTPolicy Number: [id number] Date:3957-85-37Fkcz Name:Alex CASTANEDAB: [id number] [facility], [facility]11 [facility] 07/23/2024 Primary Insurance:MEDICARE A AND BPolicy Number: [id number] Date:1164-54-10Ivng Name:Ashly CASTANEDAB: [id number] [facility]11 [facility] 07/23/2024 Secondary Insurance:HUMANA MEDICARE SUPPLEMENTPolicy Number: [id number] Date:7038-40-78Ibgm Name:Alex LOPEZ: [id number] [facility], [facility]11 [facility] 06/24/2024 Shey ObrienB: [place] [phone] Primary Insurance:Berkley PadronPolicy Number: Effective Date:1835-89-07Xyyn Name:JOHNNIE [address] [address], [place] [address]LP: Shey ObrienB: [id number] [place] [address] [facility] 06/24/2024 Secondary Insurance:HumanaPolicy Number: Effective Date:4835-61-27Wmuj Name:ETHAN O Marcela [address], [place] [address]QO: Shey ObrienB: [id number] [place] [address] [facility] 06/10/2024 Shey Diaz Lee AnnandraB: [place] [address] Primary Insurance:Berkley LopezAspirus Ironwood HospitalPolicy Number: Effective Date:9970-37-17Wqiy Name:MED [address] [address], [place] [address]AY: Shey ObrienB: [id number] [place] [phone] [facility] 06/10/2024 Secondary Insurance:HumanaPolicy Number: Effective Date:4325-98-46Aphh Name:[place] [address]EI: Shey ObrienB: [id number] [place] [address] [facility] 05/30/2024 SHEY OBRIENB: [place] [address]Fqa: () Primary Insurance:MEDICAREPolic y Number: [id number] Date:6439-65-10Psuy Name:Medicare SHEY OBRIENB: [id number] [place] [address] [facility] 05/30/2024 Secondary Insurance:HUMANAPolicy Number: [id number] Date:2016-10-08 SHEY OBRIENB: [id number] [place] [address] [facility] 05/27/2024 Shey Diaz LeonelB: [place] [id number] Primary Insurance:[facility] CenterPolicy Number: Effective Date:4353-13-25Xvmv Name:MEDP O Marcela Elias CHRISTINE [address]OS: Shey ObrienB: [id number] [place] [address] [facility] 05/27/2024 Secondary Insurance:HumanaPolicy Number: Effective Date:0045-48-73Mcwt Name:COMP [address] [place] [address]PU: Shey CatesMunirB: [id number] [place] [address] [facility] 05/15/2024 SHEY OBRIENB: [place] [id number]: () Primary Insurance:MEDICAREPolic y Number: [id number] Date:6442-29-48Yncd Name:Medicare SHEY OBRIENB: [id number] [place] [address] [facility] 05/15/2024 Secondary Insurance:HUMANAPolicy Number: [id number] Date:2016-10-08 SHEY OBRIENB: [id number] [place] [id number] [facility] 05/06/2024 Shey ObrienB: [place] [address] Primary Insurance:Craig RatnRoadPolicy Number: Effective Date:1414-02-59Zdss Name:MED O Marcela Elias CHRISTINE [address]IN: Shey ObrienB: [id number] [place] [address] [facility] 05/06/2024 Secondary Insurance:HumanaPolicy Number: Effective Date:4374-01-39Ogxf Name:ETHAN [address] [address], [place] [address]BE: Shey CastanedaB: [id number] [place] [phone] [facility] 04/29/2024 Primary Insurance:MEDICARE A AND BPolicy Number: [id number] Date:9677-16-41Iwke Name:P SHEY CASTANEDAB: [id number] [facility] [place] [address] [facility] 04/29/2024 Secondary Insurance:HUMANA MEDICARE SUPPLEMENTPolicy Number: [id number] Date:8526-85-26Rihh Name:Alex CASTANEDAB: [id number] [place] [address] [facility] 04/15/2024 Shey ObrienB: [place] [phone] Primary Insurance:Berkley LopezAspirus Ironwood HospitalPolicy Number: Effective Date:3135-91-71Afzg Name:[facility] Ariadna [address] [address], [place] [address]KK: Shey CastanedaB: [id number] [place] [phone] [facility] 04/15/2024 Secondary Insurance:HumanaPolicy Number: Effective Date:3643-52-87Zleg Name:ETHAN [address] [address], [place] [address]EO: Shey CastanedaB: [id number] [place] [id number] [facility] 04/11/2024 SHEY CASTANEDAB: [place] [address]Msj: () Primary Insurance:MEDICAREPolic y Number: [id number] Date:7924-35-50Cpsa Name:Medicare SHEY Diaz JESSICA: [id number] [place] [address] [facility] 04/11/2024 Secondary [facility] Number: [id number] Date:2016-10-08 SHEY Diaz JESSICA: [id number] [place] [address] [facility]
--- NOTE | 2025-04-10 07:54 | PM.CN ---
Consult Note: HPI Data of Consult Patient: known to practice within the last 3 years Requesting Physician: Amalia Woodson NP Primary Care Provider: Latrell Mckeon MD Consult Narrative Reason for consult: low back and RLE pain Narrative: Shey Obrien a pleasant 74 year old female presents for evaluation and management of chronic low back pain secondary to lumbar ddd, lumbar stenosis, lumbar facet arthropathy unresponsive to > 6 weeks of PT/HEP, heat, ice, tylenol, NSAIDs. Pt utilizing tylenol, zonegran, robaxin without side effects and finds mildly beneficial. Pain today 2/10 increasing to 10/10 with standing, walking, pushing, pulling, lifting, bending, stairs, and activity. notes improvement with sitting, lying, and heat. denies fall/injury. notes prior right and left L4-5 L5-S1 TFESI provided significant relief, >50% improvement, greater than 3 months. cc:: CC: Amalia Woodson NP Review of Systems ROS Musculoskeletal Reports: back pain, extremity pain and joint pain PFSH PFSH Medical History Osteoarthritis ?M19.90 - Unspecified osteoarthritis, unspecified site (ICD-10) Anxiety ?F41.9 - Anxiety disorder, unspecified (ICD-10) Hiatal hernia ?K44.9 - Diaphragmatic hernia without obstruction or gangrene (ICD-10) Sleep apnea ?G47.30 - Sleep apnea, unspecified (ICD-10) COPD (chronic obstructive pulmonary disease) ?J44.9 - Chronic obstructive pulmonary disease, unspecified (ICD-10) High cholesterol ?E78.00 - Pure hypercholesterolemia, unspecified (ICD-10) HTN (hypertension) ?I10 - Essential (primary) hypertension (ICD-10) Surgical History History of ankle surgery ?Z98.890 - Other specified postprocedural states (ICD-10) History of hand surgery ?Z98.890 - Other specified postprocedural states (ICD-10) History of knee replacement ?Z96.659 - Presence of unspecified artificial knee joint (ICD-10) Social History Little interest or pleasure in doing things: not at all Feeling down, depressed, or hopeless: not at all Meds Home Medications and Allergies Home Medications ?Medication ?Instructions ?Recorded ?Confirmed ?Type aspirin 81 mg tablet,delayed 81 mg PO DAILY 04/16/24 12/30/24 History release (Adult Aspirin Regimen) atorvastatin 40 mg tablet 40 mg PO DAILY 04/16/24 12/30/24 History calcium carbonate (Calcium 500) 500 mg PO BID 04/16/24 12/30/24 History donepezil 5 mg tablet (Aricept) 5 mg PO DAILY 04/16/24 12/30/24 History famotidine 40 mg tablet 40 mg PO DAILY 04/16/24 12/30/24 History fluticasone propionate 50 2 spray intranasal DAILY PRN 04/16/24 12/30/24 History mcg/actuation nasal allergy symptoms spray,suspension (24 Hour Allergy Relief) losartan 50 mg tablet 50 mg PO DAILY 04/16/24 12/30/24 History pantoprazole 40 mg tablet,delayed 40 mg PO DAILY 04/16/24 12/30/24 History release tiotropium bromide 18 mcg capsule 1 cap inhalation DAILY 04/16/24 12/30/24 History with inhalation device (Spiriva with HandiHaler) vitamin E 268 mg (400 unit) capsule 268 mg PO DAILY 04/16/24 12/30/24 History zolpidem 12.5 mg tablet,extended 12.5 mg PO DAILY 04/16/24 12/30/24 History release,multiphase methocarbamol 500 mg tablet 500 mg PO Q8H PRN pain #20 tabs 12/01/24 12/30/24 Rx zonisamide 50 mg capsule 100 mg (2 x 50 mg) PO DAILY #60 12/12/24 12/30/24 Rx caps hydrocodone 5 mg-acetaminophen 325 1 tab PO Q6H PRN pain #5 tabs 03/28/25 Rx mg tablet methylprednisolone 4 mg tablets in 4 mg PO DAILY #21 ea 03/28/25 Rx a dose pack (Medrol ([place]ingo)) Allergies Allergy/AdvReac Type Severity Reaction Status Date / Time No Known Drug Allergies Allergy Verified 03/28/25 15:57 Exam Constitutional Documenting provider has reviewed patient's vital signs: yes Common normals: no apparent distress, oriented x3, healthy appearing, alert and well nourished General appearance: cooperative HENMT Common normals: normocephalic, hearing grossly normal bilaterally and moist oral mucous membranes Head and scalp: normocephalic Eye Common normals: PERRL Pupil: PERRL Neck & C-Spine Common normals: full ROM General: normal visual inspection Chest Common normals: inspection of chest normal Respiratory Common normals: normal respiratory effort, no retractions and no use of accessory muscles Back & Pelvis Lumbar spine/lower back: ROM limited, pain with ROM, lumbar spinal tenderness and straight leg raise positive right Sacroiliac joints: SI joint(s) abnormal Other: bilateral sij positive mauro(patricks), gaenslens, thigh thrust, compression test strength 4/5 in RLE and 5/5 in LLE decreased sensation right L4,5,S1 increased low back and RLE pain with standing/walking, improves with forward flexion and sitting Neuro Common normals: oriented x3 Sensorium/orientation: alert Psych Common normals: mental status grossly normal, thought process normal, cooperative, affect normal, speech normal and activity/motor behavior normal Speech: normal speech Thought process: normal thought process Results Additional Findings Additional findings: If on a controlled substance or opioids, I have checked an OARRS report on this patient and there are no aberrancies noted in the prescribing history.??If on a controlled substance or opioid a drug screen was completed and reviewed within the last year, and if there has not been a drug screen completed we ordered one today to monitor higher risk, state monitored pain medication use. As part of providing excellent, safe, comprehensive care, the following was completed at our patient's visit: 1. A medication reconciliation and review to ensure accurate knowledge of current/active medications, including asking our patients to inform us about any ipkj-ewg-mrerjsr medications or herbal remedies/nutritional supplements/alternative remedies. 2. A review to specifically ensure our patients have had annual screening for screening for depression, screening for tobacco use, and screening for unhealthy alcohol use. For concerning screenings had a discussion with the patient, provided patient education, and recommended follow-up with primary care provider when appropriate. If patient noted with a risk of falling, they received education on strength, gait, and balance training to prevent future risk of falling. Portions of this note may have been carried over from the previous visit and updated as appropriate. Please note this office utilizes paper charting in addition to the electronic medical record. A list of current medications, vitals, and PMH is available there as the clinical staff outside of myself do not have access to [facility] charting during the clinic day operations. As part of providing quality comprehensive care the current medications, vitals, and PMH were reviewed in the paper chart. Assessment and Plan Assessment and Plan (1) Lumbar stenosis with neurogenic claudication: (2) Sacroiliitis: (3) Lumbar spondylosis: Plan The patient has had over 3 months of moderate to severe low back and RLE pain with functional impairment and inadequate response to conservative care including NSAIDS (unless there are contraindication such as concurrent blood thinners), multiple oral or topical pain medications, and home exercise program/physical therapy.? Patient has completed >6 weeks of guided home exercise program and/or formal physical therapy program without relief of their symptoms.? The Oswestry Disability Index was completed, and the patient scored a 31%.? repeat right L4-5 L5-S1 TFESI under fluoroscopy for lumbar stenosis with NC, prior TFESI provided >50% improvement for at least 3 months continue current medications continue HEP as tolerated consider bilateral SIJ injections if pain persists f/u 2 weeks after TFESI
== END 2025-04-10 07:53 | disposition home or self-care (01) ==
LOC: PM 07:52
PROVIDERS: PCP Family Medicine; Visit Provider Nurse Practitioner
DX: M48.062 Spinal stenosis, lumbar region with neurogenic claudication (principal); M46.1 Sacroiliitis, not elsewhere classified; M47.816 Spondylosis without myelopathy or radiculopathy, lumbar region
CPT/HCPCS: G0463

== ENCOUNTER 2025-04-28 08:08 | Day surgery (SDC) | payer MEDICARE, OTHER, SELFPAY ==
--- OUTSIDE RECORDS SUMMARY | 2025-04-23 11:00 | XMS_ITS | Encounter Summary ---
Author Organization [facility] Address [address] [place] [address] Care Team Providers Care Nutrition Services Worker Name Role Phone Katie Hairston MD Unavailable [phone] Latrell Mckeon MD Primary Care Provider [phone] Source Comments In the event this information is protected by the Federal Confidentiality of Alcohol and Drug AbusePatient Records regulations: The Federal rules restrict any use of the information to criminally investigate or prosecute any alcohol or drug abuse patient.[facility] Reason for Visit * Reason Comments Established Patient Encounter Details Date Type Department Care Team (Latest Contact Info) Description 04/23/2025 11:00 AM EDT Office Visit General Surgery [address] [address] Katarzyna Grover APRN.ADVISOR [employer]ER [address] [address] Paraesophageal hernia (Primary Dx) Social History Tobacco Use Types Packs/Day Years Used Date Smoking Tobacco: Former Cigarettes 1966 Smokeless Tobacco: Never Tobacco Cessation:Counseling Given: [...] is lower risk 9 04/29/2024 Data from: https://www.neighborhoodatlas.medicine.[facility]/. Last address used for calculation [address] [facility] 04/29/2024 Comments No Sex and Gender Information Value Date Recorded Sex Assigned at Not on file Legal Sex Female 3:17 PM EDT Gender Identity Female 04/23/2024 1:21 PM EDT Sexual Orientation Not on file documented as of this encounter Last Filed Vital Signs Vital Sign Reading Time Taken Comments Blood Pressure 157/79 04/23/2025 11:12 AM EDT Pulse 85 04/23/2025 11:12 AM EDT Temperature 36.1 C (97 F) 04/23/2025 11:12 AM EDT Respiratory Rate - - Oxygen Saturation - - Inhaled Oxygen Concentration - - Weight 103.4 kg (228 lb) 04/23/2025 11:12 AM EDT Height 165.1 cm (5' 5 ) 04/23/2025 11:12 AM EDT Body Mass Index 37.94 04/23/2025 11:12 AM EDT documented in this encounter Functional Status * Are you deaf or do you have serious difficulty hearing? Answer Date of Assessment Author No 07/26/2024 9:53 AM Alessandra Thorpe RN * Are you blind or do you have serious difficulty seeing, even when wearing glasses? Answer Date of Assessment Author No 07/26/2024 9:53 AM Alessandra Thorpe RN * Do you have serious difficulty walking or climbing stairs? Answer Date of Assessment Author No 07/26/2024 9:53 AM Alessandra Thorpe RN * Do you have difficulty dressing or bathing? Answer Date of Assessment Author No 07/26/2024 9:53 AM Alessandra Thorpe, MAURISIO * Because of a physical, mental, or emotional condition, do you have difficulty doing errands alone such as visiting a doctor's office or shopping? Answer Date of Assessment Author No 07/26/2024 9:53 AM Alessandra Thorpe RN documented as of this encounter Mental Status * Because of a physical, mental, or emotional condition, do you have serious difficulty concentrating, remembering, or making decisions? Answer Entry Date Author No 07/26/2024 9:53 AM Alessandra Thorpe RN documented in this encounter Progress Notes * Katarzyna Grover APRN.ADVISOR [employer] - 04/23/2025 11:32 AM EDT Images from the original note were not included. [facility] Clinic Date: April [...] which included preparing to see the patient, nuei-qy-xmbw patient care, completing clinical documentation, obtaining and/or reviewing separately obtained history, performing a medically appropriate examination, and counseling and educating the patient/family/caregiver. Katarzyna Grover, MSN, ADVISOR [employer] April 23, 2025 * Trupti Saez MA [...] gangrene documented in this encounter Care Teams Nutrition Services Worker Relationship Specialty Start Date End Date Latrell Mckeon MD [address] [place] [address] PCP - General Family Medicine 07/01/24 Katie Hairston MD [address] [place] [id number] Internal Medicine 04/02/24 documented as of this encounter
--- OUTSIDE RECORDS SUMMARY | 2025-04-24 07:36 | XMS_ITS | Continuity of Care Document ---
Author Organization [facility] Address [address] [place] [address] Phone Care Team Providers Care Reducer Name Role Phone Latrell Jack MD Primary Care Provider [phone] Siomara Fitzgerald DO Attending Provider [phone] Latrell Jack MD Attending Provider Erik Kim MD Attending Provider Elmer Suh DO Attending Provider Care Teams Patient Care Team Team Status: Active Member Role Status Dates Latrell Jack MD Primary Care Provider Active Visit Care Team Team Status: Inactive Member Role Status Dates Latrell Jack MD Primary Care Provider Active S tart: February 03, 2025 End: February 03, 2025 Siomara Fitzgerald DO Attending Provider Active Sta rt: February 03, 2025 End: February 03, 2025 Visit Care Team Team Status: Inactive Member Role Status Dates Latrell Jack MD Primary Care Provider Active S tart: April 10, 2025 End: April 10, 2025 Latrell Jack MD Attending Provider Active Star t: April 10, 2025 End: April 10, 2025 Visit Care Team Team Status: Active Member Role Status Dates Latrell Jack MD Primary Care Provider Active S tart: April 23, 2025 Erik Kim MD Attending Provider Active Start: April 23, 2025 Patient Care Team Team Status: Inactive Member Role Status Gelacio Jack MD Primary Care Provider Active S tart: April 24, 2025 End: April 24, 2025 Elmer Suh DO Attending Provider Active St art: April 24, 2025 End: April 24, 2025 Chief Complaint and Reason for Visit Chief Complaint Admit Date Hospital FollowUp Nadira April 10, 2025 11:27am BH April 23, 2025 3 :04pm [facility] CON[facility]ULT [facility] JACK LT SHOULDER PAIN WX [facility] April 24, 2025 10:39am Reason for Visit Admit Date Anxiety February 03, 2025 3:29 pm Major depressive disorder, recurrent, mo derate February 03, 2025 3:29pm Memory loss February 03, 2025 3:29 pm Primary insomnia February 03, 2025 3:29 pm 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, 2025 3:29 pm Obstructive sleep apnea syndrome February 032024 3:29pm Dysfunction of left eustachian tube Octo 2024 11:27am Essential hypertension, benign April 102024 11:27am Primary osteoarthritis, left shoulder Oc tober 2024 11:27am Tinnitus April 10, 2025 11 :27am Reason for Referral Referring Provider Name Referring Provider Address Referring Provider Phone Referral Date Requested Appointment Date Referral Reason Latrell Jack [address] [place] [address] Work Phone: April 10, 2025 M19.012 - Primary osteoarthritis, left shoulder Latrell Jack [address] [place] [address] Work Phone: April 10, 2025 M19.012 - Primary osteoarthritis, left shoulder April 10, 2025 H69.92 - Unspecified Eustachian tube disorder, left ear,H93.12 - Tinnitus, left ear April 10, 2025 M19.012 - Primary osteoarthritis, left shoulder April 10, 2025 M19.012 - Primary osteoarthritis, left shoulder Allergies, Adverse Reactions, Alerts Allergen Type Severity Reaction Last Updated Verified Status No Known Allergies Allergy Unknown Octobe r 2024 11:06am Yes Active Social History Smoking Status Status Start Date End Date Date of Observa tion Ex-smoker (finding) April 10, 2025 11:50am Observation Status Observation Response Date of Response Legal Sex Female (finding) Sex Assigned At Female September Problems Active Problems Medical Problem Onset Date Status Class 2 severe obesity due t o excess calories with serious comorbidity and body mass index (BMI) of 36.0 to 36.9 in adult Unknown Active Impingement of left shoulder Unknown Act owen Lower extremity edema Unknown Active Primary insomnia Unknown Active EDWIN (obstructive sleep apnea) Unknown Ac tive Dysfunction of left eustachian tube Unknown Active Primary osteoarthritis, left shoulder Unknown Active Primary osteoarthritis of both knees Unknown Active Essential hypertension, benign Unknown A ctive Dyslipidemia Unknown Active Memory loss Unknown Active Anxiety Unknown Active Senile dementia Unknown Active TIA (transient ischemic attack) Unknown Active Pseudodementia Unknown Active Former smoker Unknown Active Major depressive disorder, recurrent, moderate U nknown Active Seasonal allergic rhinitis due to pollen Unknown Active GERD without esophagitis Unknown Active Prediabetes Unknown Active Degenerative lumbar spinal stenosis Unknown Active COPD (chronic obstructive pulmonary disease) Unk nown Active Tinnitus Unknown Active Stroke Unknown Active Osteopenia of lumbar spine Unknown Activ e Inactive/Resolved Problems Medical Problem Onset Date Status Sleep apnea Unknown Resolved Dysphagia Unknown Resolved Medications Medication Status Dose Units Route Directions Qty Days St art Date Stop Date End Date Instructions Adherence Donepezil 10 mg tablet Active 10 MG PO Bedtime 30 30 Aprobe r 2024 9:36am Complies with drug therapy Atorvastati n 40 mg tablet Active 40 MG PO Daily December 12, 2024 12:00a m Complies with drug therapy Donepezil 10 mg tablet Discont inued 10 MG PO Bedtime December 12, 2024 12:00a m Octob er 2024 9:36a m Losartan 50 mg tablet Discont inued 50 MG PO Twice daily December 12, 2024 12:00a m February 03, 2025 3:55p m Zolpidem 10 mg tablet Discont inued 10 MG PO Bedtime as needed for sleep December 12, 2024 12:00a m Octob er 2024 11:48 am Zonisamide 50 mg capsule Discont inued 50 MG PO Twice daily December 12, 2024 12:00a m Octob er 2024 1:42p m Fluticasone Propionate 50 mcg/actuati on spray,suspe nsion Active 2 SPRAY INTRAN VALENCIA Daily December 12, 2024 12:00a m Complies with drug therapy Methocarbam ol 750 mg tablet Discont inued 750 MG PO Four times daily as needed for pain December 12, 2024 12:00a m February 03, 2025 3:55p m Tiotropium Jefferson (Spiriva With Handihaler) 18 mcg capsule, w/inhalatio n device Active 1 CAP INHALA TION Daily December 12, 2024 12:00a m Complies with drug therapy Mirtazapine 7.5 mg Tablet Discont inued 7.5 MG PO Daily at bedtime December 16, 2024 12:00a m February 03, 2025 3:55p m Zonisamide 50 mg capsule Active 100 MG PO Daily Octobe r 2024 1:36pm Complies with drug therapy Losartan 50 mg tablet Discont inued 50 MG PO Twice daily February 03, 2025 12:00a m Octob er 2024 1:27p m Methocarbam ol 500 mg tablet Discont inued 500 MG PO as needed February 03, 2025 12:00a m Octob er 2024 1:31p m Famotidine 40 mg tablet Discont inued 40 MG PO Daily February 03, 2025 12:00a m Octob er 2024 1:42p m Pantoprazol e 40 mg tablet,marie yed release (DR/EC) Active 40 MG PO Daily February 03, 2025 12:00a m Complies with drug therapy Aspirin 81 mg tablet Active 81 MG PO Daily February 03, 2025 12:00a m Complies with drug therapy Mirtazapine 15 mg tablet Active 15 MG PO Daily at bedtime February 03, 2025 12:00a m Complies with drug therapy Eszopiclone (Lunesta) 2 mg tablet Active 2 MG PO Daily at bedtime February 03, 2025 12:00a m Complies with drug therapy Famotidine 40 mg tablet Active 40 MG PO Twice daily Octobe r 2024 1:27pm Complies with drug therapy Losartan 100 mg tablet Active 100 MG PO Daily Octobe r 2024 12:00a m Complies with drug therapy Methocarbam ol 750 mg tablet Active 750 MG PO Four times daily as needed for muscle spasms Octobe r 2024 12:00a m Complies with drug therapy Albuterol Sulfate 2.5 mg /3 mL (0.083 %) solution for nebulizatio n Active 2.5 MG INHALA TION Every 4 hours as needed Octobe r 2024 12:00a m Complies with drug therapy Calcium Carbonate (Calcium 600) 600 mg calcium (1,500 mg) tablet Active 600 MG PO Twice daily Octobe r 2024 12:00a m Complies with drug therapy Docusate Sodium 100 mg capsule Discont inued 100 MG PO Twice daily as needed Octobe r 2024 12:00a m Octob er 2024 11:47 am Multivitami n,Tx-Minera ls (Multi-Patricia min Hp/Minerals ) capsule Active 1 CAP PO Daily Octobe r 2024 12:00a m Complies with drug therapy Cholecalcif irena (Vitamin D3) 25 mcg (1,000 unit) tablet Active 25 MCG PO Daily Octobe r 2024 12:00a m Complies with drug therapy Vitamin E Mixed 400 unit tablet Active 400 UNIT PO Daily Octobe r 2024 12:00a m Complies with drug therapy Vital Signs Vital Reading Result Reference Range Collection Date/Time Height 63 [in_i] February 03, 2025 3:56pm Weight 98.42 kg February 03, 2025 3:56pm Heart Rate 90 /min 60-100 February 03, 2025 3:56pm Oxygen saturation by Pulse oximetry 92 % 95-100 February 03, 2025 3:56 pm BP Systolic 164 mm[Hg] 100-140 February 03, 2025 3:56pm BP Diastolic 96 mm[Hg] 60-100 February 03, 2025 3:56pm BMI (Body Mass Index) 38.4 kg/m2 January 082024 3:56pm Height 64 [in_i] April 10 11:46am Weight 104.32 kg April 10 11:46am Body Temperature 97.1 [degF] 97.6-99.0 April 11:46am Heart Rate 108 /min 60-100 April 10 11:46am Respiratory rate 24 /min -April 11:46am Oxygen saturation by Pulse oximetry 99 % 95-100 April 10, 2025 11 :46am BP Systolic 164 mm[Hg] 100-140 April 10 11:46am BP Diastolic 84 mm[Hg] 60-100 April 10 11:46am BMI (Body Mass Index) 39.4 kg/m2 Octobe r 2024 11:46am Height 64 [in_i] April 24 025 11:06am Weight 104.00 kg April 24 025 11:06am BMI (Body Mass Index) 39.3 kg/m2 Octobe r 2024 11:06am Advance Directives Advance Directive Response Recorded Date/ Time Advance Directives No December 17 2:30pm Insurance Providers Guarantor Shey Jv Obrien Address [address] [place] [address] Contact Info. Home Phone: Payer Policy Id Subscriber's Name Subscriber Id Effectiv e Date Expiration Date Medicare [id number] Shey Jv Camille [id number] Humana [facility] PFFS [id number] Shey Jv Obrien [id number] Regular Insurance [id number] Sheyrupa Obrien [id number] Humana [id number] Shey Jv Obrien [id number] Encounters Encounter Location(s) Arrival/Admit Date Discharge/Depart Date Provider(s) Departed Physician/Provi meryl Office Visit -[facility] Neurology [place] February 03, 2025 3:29pm February 03, 2025 4:34pm Siomara Fitzgerald DO Departed Physician/Provi meryl Office Visit -[facility] Family Medicine [place] April 10, 2025 11:27am April 10, 2025 12:14pm Latrell Jack MD Registered [facility] [place] April 23, 2025 3:04pm Erik Kim MD Departed Physician/Provi meryl Office Visit -[facility] Orthopedics [place] April 24, 2025 10:39am April 24, 2025 11:35am Elmer Suh DO Recent Diagnosis Onset Date Admit Date Anxiety Unknown February 03, 2025 3:29pm Major depressive disorder, recurrent, moderate U nknown February 03, 2025 3:29pm Memory loss Unknown February 03, 2025 3:29pm Primary insomnia Unknown February 03, 2025 3:29pm Pseudodementia Unknown February 03, 2025 3:29pm Obstructive sleep apnea syndrome Unknown February 03, 2025 3:29pm Dysfunction of left eustachian tube Unknown April 10, 2025 11:27am Essential hypertension, benign Unknown O ctober 2024 11:27am Primary osteoarthritis, left shoulder Unknown April 10, 2025 11:27am Tinnitus Unknown April 10 11:27am Assessments Diagnosis Onset Date Resolution Status Admit Date Anxiety acute February 03 3:29pm Major depressive disorder, recurrent, moderate acute February 03 025 3:29pm Memory loss acute February 03 3:29pm Primary insomnia acute January 3:29pm Pseudodementia acute February 03, 2025 3:29pm Obstructive sleep apnea syndrome noneactive February 03, 2025 3:29pm Dysfunction of left eustachi an tube acute April 10 11:27am Essential hypertension, benign acute April 10, 2025 11:27am Primary osteoarthritis, left shoulder acute April 10 11:27am Tinnitus acute April 10 11:27am Plan of Treatment Author Siomara Fitzgerald [facility] Authored February 03, 2025 4:47 pm 74-year-old female with a lo ng history of obstructive sleep apnea. She is compliant with her CPAP machine. She is using it 100% of the time greater than 4 hours average nightly usage of 7 hours and 53 minutes and a residual AHI of 0.7. She however does not feel like her sleep is restorative. She feels like she is waking up a lot and just laying there with the machine on. Previously they were trying to get Ambien CR but they have not been able to do that. The Ambien immediate release is not working well for her. We will go ahead and switch her over to Lunesta and give her PCP a call to let them know we were going to try that as is a longer acting medicine and see if that works a little bit better on her sleep onset and sleep maintenance insomnia. Will try the 2 mg and potentially go up to the 3 mg depending on how she responds to it. Since She was having some issues with memory loss. She had a neuropsych test that did not show any neurodegenerative process. 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 She recently had a psychiatric admit due to depression and anxiety and some psychosocial issues. She had some transient suicidal ideation. She is somewhat better now. Patient has some mild shakiness and tremulousness. She has a little bit in her jawline. It is no worse and we will monitor this over time. Previous old records Last MMSE 28/30 EEG normal TSH B12 folic acid normal MRI of the brain was nonacute with microvascular ischemic changes and some atrophy Since neuropsych 04/11/2024 showed no evidence of a neurodegenerative condition but memory worsened because of depression anxiety sleep quality and poor daytime energy. She is very distractible. Plan Compliance download reviewed reviewed and she is compliant as above Continue with psychiatric treatment Continue the Aricept 10 mg daily for now not clear that she actually needs this We will switch her Ambien over to Lunesta as it is longer acting and see if that helps better with her sleep She does see pain management for back pain and lumbar injections Brain exercises Cardiovascular exercise Mediterranean diet 8 hours of sleep 12 hours of fasting The patient was counseled on proper sleep hygiene and adequate hours of sleep. The patient was counseled on the risks of stroke, SD, and sudden with EDWIN, along with the need for compliance with the CPAP/BiPAP treatment. The diagnosis was all discussed with the patient. All questions were answered and they agreed with the treatment plan. Patient will call if there are any new issues or questions. Author [facility]ll [facility] Authored April 10, 2025 12 :20pm Continued pain and degenerat owen changes on x-ray. Refer to ortho for possible injection. Continued symptoms and no improvement with treatment. Continue flonase and refer to ENT. Continued symptoms and no improvement with treatment. Continue flonase and refer to ENT. BP controlled and monitor PRN. Future Tests Future scheduled test information is unavailable Pending Tests Pending diagnostic test information is unavailable Future Visits Future appointment information is unavailable Referrals to Other Providers Reason for Referral Referral Start Date Provider Provider Contact Information Provider Address H69.92 - Unspecified Eustachian tube disorder, left ear,H93.12 - Tinnitus, left ear April 10, 2025 ANALILIA HUFF MD SEE ORDER- MULTIPLE OFFICES [place] M19.012 - Primary osteoarthritis, left shoulder April 10, 2025 Jayro Delgado , DO Work Phone: [facility] [employer] [facility] [address] M19.012 - Primary osteoarthritis, left shoulder April 10, 2025 Determined by Patient Future Procedures Future procedure information is unavailable Future Medications Future medication information is unavailable Patient Instructions Patient instructions are unavailable
--- OUTSIDE RECORDS SUMMARY | 2025-04-28 08:15 | XMS_ITS | Encounter Summary ---
Author Organization [facility] Address [address] [place] [address] Care Team Providers Care Assistant Project Manager Name Role Phone Latrell Mckeon MD Primary Care Provider Siomara Fitzgerald DO Unavailable [phone] Latrell Mckeon MD Unavailable Sugar Arenas BINDERY OPERATOR Unavailable [phone] Encounter Details Date Type Department Care [...] or pharmacy? Sometimes 02/02/2024 Social Connection and Isolation Panel Answer Date Recorded In a typical week, how many times do you talk on the phone with family, friends, or neighbors? More than three times a week 02/02/2024 How often do you get togethe r with friends or relatives? Three times a week 02/02/2024 How often do you attend [facility] or [facility] services? Patient declined 02/02/2024 Do you belong to any clubs o r organizations such as religion groups, unions, fraternal or athletic groups, or [...] Recorded Patient Health Questionnaire-2 Score 0 08/11/2023 [facility] - Occupational Stress Questionnaire Answer [...] any time in the past 12 m [facility], were you homeless or living in [...] Care Team (Late st Contact Info) Description 06/04/2025 3:30 PM EST Office Visit [facility] [address] [facility] [place] [address] Sugar Cruz S, AUD [address] [place] [address] 06/09/2025 1:10 PM EST Office Visit [facility]NE [facility]ard Otolaryngology [address] [facility] [address] [place] [address] Layla Houston MD [address] [facility] [address] [place] [address] documented as of this encounter Procedures Procedure Name Priority Date/Time Associated Diagnosis Comments XR FOOT RT MIN 3V 04/10/2024 7:2 5 AM EDT documented in this encounter Results * XR FOOT RT MIN 3V (04/10/2024 7:25 AM EDT) Anatomical Region Laterality Modality Other 04/10/2024 7:25 AM EDT Narrative 04/10/2024 7:27 AM EDT The [address] [address] XRay Report Signed Patient: SHEY BOSS MR#: [id number] : 1950 Acct:[id number] Age/Sex: 73 / F ADM Date: 04/09/24 Loc: [facility] Attending Dr: Marnie Sanchez D.P.M. Ordering Physician: Marnie Sanchez D.P.M. Date of Service: 04/09/24 Procedure(s): XR foot RT min 3V Accession Number(s): [id number] cc: Marnie Sanchez D.P.M.; Latrell Mckeon M.D. The [place] [address] Patient Name: SHEY BOSS MRN: [id number] date: 1950 Sex: F Assigned Patient Location: EC Current Patient Location: Accession/Order Number: [id number] Exam Date: 04/09/2024 09:34 Report Date: 04/10/2024 [...] Negative. XR/XR foot RT min 3V IMPRESSION: [id number]-[id number]-cyaztjnl osteoarthritis Electronically authenticated by: WILLARD RUSSO Date: 04/10/2024 07:25 Dictated By: Willard Russo M.D. Signed By: 04/10/24726 DD/ TD/TT: [employer]: Procedure Note Radiology, Radiologist, MD - 04/10/2024 [place] [address] XRay Report Signed Patient: SHEY BOSS LMR#: [id number] : 1950cct:[id number] Age/Sex: 73 / FADM Date: 04/09/24 Loc: EC Attending Dr: Marnie Sanchez D.P.M. Ordering Physician: Marnie Sanchez D.P.M. Date of Service: 04/09/24 Procedure(s): XR foot RT min 3V Accession Number(s): [id number] cc: Marnie Sanchez D.P.M.; Latrell Mckeon M.D. [place] [address] Patient Name: SHEY BOSS MRN: [id number] date: 1950 Sex: F Assigned Patient Location: Current Patient Location: Accession/Order Number: [id number] Exam Date: 04/09/2024 09:34 Report Date: 04/10/2024 [...] Negative. XR/XR foot RT min 3V IMPRESSION: Kygm-bd-rcmukvjx osteoarthritis Electronically authenticated by: WILLARD RUSSO Date: 04/10/2024 07:25 Dictated By: Willard Russo M.D. Signed By:04/10/24726 DD/ 4 TD/TT: [employer]: Generic External Data Provider [facility] Final Result documented in this encounter Visit Diagnoses Not on filedocumented in this encounter Care Teams Assistant Project Manager Relationship Specialty Start Date End Date Latrell Mckeon MD PCP - General Family Medicine 08/05/23 Latrell Mckeon MD [address] [place] [address] PCP - ACO Reach 08/16/24 Siomara Fitzgerald DO [address] [place] [address] Referring Physician Neurology 05/30/24 Sugar Arenas, FABIANO [address] [place], [place] [id number] Gun Mechanic Family Medicine 01/16/25 03/04/25 documented as of this encounter
--- OUTSIDE RECORDS SUMMARY | 2025-04-28 08:16 | XMS_ITS | Patient Health Record ---
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) Active confirmed Problem Lumbar radiculopathy (437213848) Radiculopathy, lumbar region (M54.16) Active confirmed Problem Pain in right foot (803063801335470) Right foot pain (M79.671) Active confirmed Plan Of Treatment Pending Test Test Name Order Date XR foot RT min 3V 04/10/2024 Insurance Providers Payer Name Payer Address Payer Phone Subscriber Number Group Number Insured Name Patient Relationship to Insured Coverage Start Date Coverage End Date MEDICARE RAILROAD [address] [address] [place] [id number] Shey Obrien Self - patient is the insured [employer] SUPPLEMENT [address] [address] [place], [place] [id number] Shey Obrien Self - patient is the insured Medical (General) History Surgical History Surgery Date(Month/Year) right ankle sx right ankle HWR 2021
--- OUTSIDE RECORDS SUMMARY | 2025-04-28 08:16 | XMS_ITS | Encounter Summary ---
Author Organization [facility] Address [address] [place] [address] Care Team Providers Care Deputy Director Of Nursing Name Role Phone Latrell Mckeon MD Primary Care Provider [phone] Siomara Fitzgerald DO Unavailable [phone] Latrell Mckeon MD Unavailable Sugar Arenas ECONOMIC ADVISER Unavailable [phone] Encounter Details Date Type Department Care [...] week 02/02/2024 How often do you attend [facility] or taoist services? Patient declined 02/02/2024 Do you belong to any clubs o r organizations such as buddhism groups, unions, fraternal or athletic groups, or [...] Recorded Patient Health Questionnaire-2 Score 0 08/11/2023 [facility] of Occupat ional [facility] - Occupational Stress Questionnaire Answer Date [...] time in the past 12 m [facility], were you homeless or living in a [...] Description 06/04/2025 3:30 PM EST Office Visit [facility] [address] [place] [address] Sugar Cruz, AUD [address] [place] [address] 06/09/2025 1:10 PM EST Office Visit [facility] Ot[facility] 112 [facility] [address] [place] [address] Layla Houtson MD [address] [facility] 130 [place] [address] documented as of this encounter Procedures Procedure Name Priority Date/Time Associated Diagnosis Comments MR LUMBAR SPINE WO CON 04/22/2024 1:57 PM EDT documented in this encounter Results * MR LUMBAR SPINE WO CON (04/22/2024 1:57 PM EDT) Anatomical Region Laterality Modality Other 04/22/2024 1:57 PM EDT Narrative 04/22/2024 2:00 PM EDT The [address] [address] Magnetic Resonance Report Signed Patient: SHEY BOSS MR#: [id number] : 1950 Acct:[id number] Age/Sex: 73 / F ADM Date: 04/22/24 Loc: MRI Attending Dr: Talat Arguello M.D. Ordering Physician: Talat Arguello M.D. Date of Service: 04/22/24 Procedure(s): MR lumbar spine wo con Accession Number(s): [id number] cc: Talat Arguello M.D.; Latrell Mckeon M.D. [place] [address] Patient Name: SHEY BOSS MRN: [id number] date: 1950 Sex: F Assigned Patient Location: MRI Current Patient Location: Accession/Order Number: [id number] Exam Date: 04/22/2024 07:45 Report Date: 04/22/2024 [...] Signed By: 04/22/24 1400 DD/ 1357 TD/TT: Separations Scientist: Procedure Note Radiology, Radiologist, MD - 04/22/2024 [place] [address] Magnetic Resonance Report Signed Patient: SHEY BOSS LMR#: [id number] : 1950cct:[id number] Age/Sex: 73 / FADM Date: 04/22/24 Loc: MRI Attending Dr: Talat Arguello M.D. Ordering Physician: Talat Arguello M.D. Date of Service: 04/22/24 Procedure(s): MR lumbar spine wo con Accession Number(s): [id number] cc: Talat Arguello M.D.; Latrell Mckeon M.D. The [place] [address] Patient Name: SHEY BOSS MRN: [id number] date: 1950 Sex: F Assigned Patient Location: MRI Current Patient Location: PM Accession/Order Number: [id number] Exam Date: 04/22/2024 07:45 Report Date: 04/22/2024 [...] M.D. Signed By:04/22/24 1400 DD/ 1357 TD/TT: Separations Scientist: us Generic External Data Provider [facility] IMAGING Final Result documented in this encounter Visit Diagnoses Not on filedocumented in this encounter Care Teams Deputy Director Of Nursing Relationship Specialty Start Date End Date Latrell Mckeon MD PCP - General Family Medicine 08/05/23 Latrell Mckeon MD [address] [place] [address] PCP - ACO Reach 08/16/24 Siomara Fitzgerald DO [address] [place] [address] Referring Physician Neurology 05/30/24 Sugar Arenas, FABIANO [address] [place] [address] Director Of Market Research Family Medicine 01/16/25 03/04/25 documented as of this encounter
--- OUTSIDE RECORDS SUMMARY | 2025-04-28 08:16 | XMS_ITS | Encounter Summary ---
Author Organization [facility] Address [address] [place] [address] Care Team Providers Care Epic Professional Name Role Phone Latrell Mckeon MD Primary Care Provider [phone] Siomara Fitzgerald DO Unavailable [phone] Latrell Mckeon MD Unavailable Sugar Arenas CASING SOAKER Unavailable [phone] Encounter Details Date Type Department Care [...] week 02/02/2024 How often do you attend [facility] or amish services? Patient declined 02/02/2024 Do you belong to any clubs o r organizations such as sabianist groups, unions, fraternal or athletic groups, or [...] Recorded Patient Health Questionnaire-2 Score 0 08/11/2023 [facility] of Occupat ional [facility] - Occupational Stress Questionnaire Answer Date [...] Visit [facility] [address] [place] [place] [address] Sugar Cruz, AUD [address] [place] [address] 06/09/2025 1:10 PM EST Office Visit [facility]NE Girard Otolaryngology 112 [facility] 130 [place] [address] Layla Houston MD [address] [facility] 130 [place] [address] documented as of this encounter Procedures Procedure [...] soft tissues: Unremarkable. IMPRESSION: Large hiatal hernia. Materials Analyst: [facility] Transcribe Date/Time: Jul 24 2024 7:28A Dictated by : JARVIS HUOG MD This examination was interpreted and the report reviewed and electronically signed by: JARVIS HUGO MD on Jul 24 2024 7:30AM EST [id number]^SI^ACN Procedure Note Radiology, Radiologist, - 07/24/2024 * [...] soft tissues: Unremarkable. IMPRESSION: Large hiatal hernia. Materials Analyst: [facility] Transcribe Date/Time: Jul 24 2024 7:28A Dictated by : JARVIS HUGO MD This examination was interpreted and the report reviewed and electronically signed by: JARVIS HUGO MD on Jul 24 2024 7:30AM EST [id number]^SI^ACN Generic External Data Provider [facility] IMAG[facility] Final Result * [facility] CONFIRM BLOOD TYPE (07/23/2024 11:47 AM EST) ABO B [facility] RH Positive [facility] 07/23/2024 11:4 7 AM EST 07/23/2024 11:47 AM EST Narrative [facility]INIS[facility]NC - 07/23/2024 11:46 AM EST Specimen Type: BLOOD SPECIMEN Ordering Facility: [facility] Address: [address] [place] [address] CC MAIN BLOOD BANK CLIA [id number] [address] [place] [address] Generic External Data Provider CLINIS[facility]NC F inal Result Performing Organization Address [facility] de Phone Number JARRET VANN [address] [place] [address] * [facility] TYPE AND SCREEN,30 DAY (07/23/2024 11:41 AM EST) ABO B [facility] RH Positive [facility] ANTIBODY SCREEN Negative [facility] 07/23/2024 11:4 1 AM EST 07/23/2024 11:42 AM EST Narrative CLIN[facility]NC - 07/23/2024 11:41 AM EST Specimen Type: BLOOD SPECIMEN Ordering Facility: [facility] Address: [address] [place] [address] CC MAIN BLOOD BANK CLIA [id number] [address] [place] [address] Generic External Data Provider CLINISYNC F inal Result Performing Organization Address [facility] Co de Phone Number JARRET VANN [address] [facility] [address] [place] [address] documented in this encounter Visit Diagnoses Not on filedocumented in this encounter Care Teams Epic Professional Relationship Specialty Start Date End Date Latrell Mckeon MD PCP - General Family Medicine 08/05/23 Latrell Mckeon MD [address] [facility] [place] [address] PCP - ACO Reach 08/16/24 Siomara Fitzgerald DO [address] [place] [address] Referring Physician Neurology 05/30/24 Sugar Arenas, FABIANO [address] [place], [place] [address] Overlock Waistline Joiner Family Medicine 01/16/25 03/04/25 documented as of this encounter
--- OUTSIDE RECORDS SUMMARY | 2025-04-28 08:16 | XMS_ITS | Encounter Summary ---
Author Organization [facility] Address [address] [place] [address] Care Team Providers Care Neck Band Setter Name Role Phone Latrell Mckeon MD Primary Care Provider [phone] Siomara Fitzgerald DO Unavailable [phone] Latrell Mckeon MD Unavailable Sugar Arenas ENVIRONMENTAL LEAD Unavailable [phone] Reason for Visit * Reason Comments Med Refill Encounter Details Date Type Department Care Team (Late st Contact Info) Description 08/02/2024 Refill [facility] [address] [place] [address] Latrell Mckeon MD [address] [place] [address] Social History Tobacco Use Types Packs/Day Years [...] often do you attend chur ch or sabianism services? Patient declined 02/02/2024 Do [...] Recorded Patient Health Questionnaire-2 Score 0 08/11/2023 [facility] of Occupat ional [facility] - Occupational Stress Questionnaire Answer Date [...] any time in the past 12 m [facility], were you homeless or [...] EST Office Visit [facility] [address] [place] [address] CruzSugar S, AUD [address] [facility] [place] [address] 06/09/2025 1:10 PM EST Office Visit MARIANNE Sebastian Otolaryngology 112 [facility] 130 [place] [address] Layla Houston MD [address] [facility] 130 [place] [address] documented as of this encounter Visit Diagnoses Not on filedocumented in this encounter Care Teams Neck Band Setter Relationship Specialty Start Date End Date Latrell Mckeon MD PCP - General Family Medicine 08/05/23 Latrell Mckeon MD [address] [place] [address] PCP - ACO Reach 08/16/24 Siomara Fitzgerald DO [address] [place] [address] Referring Physician Neurology 05/30/24 Sugar Arenas, FABIANO [address] [place], [place] [address] Patient Financial Coordinator Family Medicine 01/16/25 03/04/25 documented as of this encounter
--- OUTSIDE RECORDS SUMMARY | 2025-04-28 08:16 | XMS_ITS | Encounter Summary ---
Author Organization [facility] Address [address] [place] [address] Care Team Providers Care Chef De Cuisine Name Role Phone Latrell Mckeon MD Primary Care Provider [phone] Siomara Fitzgerald DO Unavailable [phone] Latrell Mckeon MD Unavailable Sugar Arenas STRIKE PLANNING APPLICATIONS Unavailable [phone] Encounter Details Date Type Department Care [...] week 02/02/2024 How often do you attend [facility] or buddhist services? Patient declined 02/02/2024 Do [...] Patient Health Questionnaire-2 Score 0 08/11/2023 [facility] of Occupat ional [facility] - Occupational Stress Questionnaire Answer Date [...] in the past 12 m [facility], were you homeless or living [...] Office Visit [facility] [address] [facility] [place] [address] Sugar Cruz S, AUD [address] [place] [address] 06/09/2025 1:10 PM EST Office Visit [facility]NE Girard Otolaryngology 112 [facility] 130 [place] [address] Layla Houston MD [address] [facility] 130 [place] [address] documented as of this encounter Procedures Procedure [...] QTC Calculation(Bazett) : 423 ms Calculated P Gilroy : 32 degrees Calculated R Gilroy : 14 degrees Calculated T Gilroy : 54 degrees NORMAL SINUS RHYTHM NORMAL ECG Confirmed by MD MCCLENDON HEBA ([id number]) on 07/29/2024 12:16:17 PM NAME : SHEY BOSS PID : [id number] : 1950 Gender : Female Race : ORD : [id number] Procedure Date : Jul 23 2024 12:08:10 Edit Date : Jul 29 2024 12:16:18 Diagnosis: NORMAL SINUS RHYTHM NORMAL ECG Confirmed by MD MCCLENDON HEBA ([id number]) on 07/29/2024 12:16:17 PM Test Reason : [...] QTC Calculation(Bazett) : 423 ms Calculated P Gilroy : 32 degrees Calculated R Gilroy : 14 degrees Calculated T Gilroy : 54 degrees NORMAL SINUS RHYTHM NORMAL ECG Confirmed by MD MCCLENDON HEBA ([id number]) on 07/29/2024 12:16:17 PM NAME : SHEY BOSS PID : [id number] : 1950 Gender : Female Race : ORD : [id number] Procedure Date : Jul 23 2024 12:08:10 Edit Date : Jul 29 2024 12:16:18 Diagnosis: NORMAL SINUS RHYTHM NORMAL ECG Confirmed by MD MCCLENDON HEBA ([id number]) on 07/29/2024 12:16:17 PM Test Reason : Location : 119 : A17 A17 Overread By : MD MCCLENDON HEBA Edited By : MD MCCLENDON HEBA Referred By : LISS BOYD Acquired by : SADE HA Authorlenny Provider Result Type Result Stat us Generic External Data Provider ECG ORDERABLES F inal Result [facility] documented in this encounter Visit Diagnoses Not on filedocumented in this encounter Care Teams Chef De Cuisine Relationship Specialty Start Date End Date Latrell Mckeon MD PCP - General Family Medicine 08/05/23 Latrell Mckeon MD [address] [facility] [place] [address] PCP - ACO Reach 08/16/24 Siomara Fitzgerald DO [address] [place] [address] Referring Physician Neurology 05/30/24 Sugar Arenas, STRIKE PLANNING APPLICATIONS [address] [place] [address] Lodge Attendant Family Medicine 01/16/25 03/04/25 documented as of this encounter
--- OUTSIDE RECORDS SUMMARY | 2025-04-28 08:16 | XMS_ITS | Encounter Summary ---
Author Organization [facility] Address [address] [place] [address] Care Team Providers Care Cyber Engineer Name Role Phone Latrell Mckeon MD Primary Care Provider [phone] Siomara Fitzgerald DO Unavailable [phone] Latrell Mckeon MD Unavailable Sugar Arenas LANGUAGE ASST Unavailable [phone] Encounter Details Date Type Department Care Team (Late st Contact Info) Description 07/18/2024 Abstract [facility] [address] [place] [address] Latrell Mckeon MD [address] [place] [address] Social History Tobacco Use Types Packs/Day Years [...] Recorded Patient Health Questionnaire-2 Score 0 08/11/2023 [facility] of Occupat ional Health - Occupational [...] any time in the past 12 m [facility], were you homeless or living [...] Description 06/04/2025 3:30 PM EST Office Visit [facility] [address] [place] [address] CruzSugar S, AUD [address] [place] [address] 06/09/2025 1:10 PM EST Office Visit MARIANNE Sebastian Otolaryngology [address] [facility] 130 [place] [address] Layla Houston MD [address] [facility] 130 [place] [address] documented as of this encounter Visit Diagnoses Not on filedocumented in this encounter Care Teams Cyber Engineer Relationship Specialty Start Date End Date Latrell Mckeon MD PCP - General Family Medicine 08/05/23 Latrell Mckeon MD [address] [place] [address] PCP - ACO Reach 08/16/24 Siomara Fitzgerald DO [address] [place] [address] Referring Physician Neurology 05/30/24 Sugar Arenas, FABIANO [address] [place] [address] Uniform Patrol Police Officer Family Medicine 01/16/25 03/04/25 documented as of this encounter
--- OUTSIDE RECORDS SUMMARY | 2025-04-28 08:17 | XMS_ITS | Encounter Summary ---
Author Organization [facility] Address [address] [place] [address] Care Team Providers Care Interpreter And Translator Name Role Phone Latrell Mckeon MD Primary Care Provider [phone] Siomara Fitzgerald DO Unavailable [phone] Latrell Mckeon MD Unavailable Sugar Arenas ART CONSULTANT Unavailable [phone] Encounter Details Date Type Department Care Team (Late st Contact Info) Description 12/12/2024 Orders Only [facility] [address] [place] [address] Amalia Woodson, PEDRO [address] [place] [address] Social History Tobacco Use Types Packs/Day Years [...] often do you attend chur ch or yazidi services? Patient declined 02/02/2024 Do you belong [...] Recorded Patient Health Questionnaire-2 Score 0 08/27/2024 [facility] of Occupat ional [facility] - Occupational Stress Questionnaire Answer [...] Office Visit [facility] [address] [place] [address] Sugar Cruz S, AUD [address] [place] [address] 06/09/2025 1:10 PM EST Office Visit [facility]ology 112 [facility] 130 [place] [address] Layla Houston MD 112 [facility] 130 [place] [address] documented as of this encounter Procedures Procedure Name Priority Date/Time Associated Diagnosis Comments XR HIP 2-3 VIEWS LEFT Routine 12/12/2024 11:07 AM EDT documented in this encounter Results * XR HIP 2-3 VIEWS LEFT (12/12/2024 11:07 AM EDT) Anatomical Region Laterality Modality Radiographic Lani ging Amalia Woodson NP IMG XR PROCEDURES Final Result documented in this encounter Visit Diagnoses Not on filedocumented in this encounter Additional Health Concerns Assessment Noted Time PHQ-9 Depression Total Score: 4 08/27/19 25 10:00 AM EST documented as of this encounter Care Teams Interpreter And Translator Relationship Specialty Start Date End Date Latrell Mckeon MD PCP - General Family Medicine 08/05/23 Latrell Mckeon MD [address] [facility] [place] [address] PCP - ACO Reach 08/16/24 Siomara Fitzgerald DO [address] [place], [place] [address] Referring Physician Neurology 05/30/24 Sugar Arenas, FABIANO [address] [facility] [place], [place] [address] Dip Tanker Family Medicine 01/16/25 03/04/25 documented as of this encounter
--- OUTSIDE RECORDS SUMMARY | 2025-04-28 08:17 | XMS_ITS | Encounter Summary ---
Author Organization [facility] Address [address] [place] [address] Care Team Providers Care Stone Rigger Name Role Phone Latrell Mckeon MD Primary Care Provider [phone] Siomara Fitzgerald DO Unavailable [phone] Latrell Mckeon MD Unavailable Sugar Arenas FINISH ROLLS OPERATOR Unavailable [phone] Encounter Details Date Type Department Care Team (Late st Contact Info) Description 12/13/2024 Orders Only [facility] [address] [place] [address] Latrell Mckeon MD [address] [place] [address] Social History Tobacco Use Types Packs/Day Years [...] often do you attend chur ch or sikhism services? Patient declined 02/02/2024 Do you belong to any clubs o r organizations such as sabianism groups, unions, fraternal or athletic groups, or [...] Recorded Patient Health Questionnaire-2 Score 0 08/27/2024 [facility] of Occupat ional Health - [...] any time in the past 12 m [facility], were you homeless or [...] Office Visit [facility] [address] [place] [address] Sugar Cruz S, AUD [address] [place] [address] 06/09/2025 1:10 PM EST Office Visit [facility] 112 [facility] 130 [place] [address] Layla Houston MD [address] [facility] 130 [place] [address] documented as of this encounter Procedures Procedure [...] documented as of this encounter Care Teams Stone Rigger Relationship Specialty Start Date End Date Latrell Mckeon MD PCP - General Family Medicine 08/05/23 Latrell Mckeon MD [address] [facility] [place] [address] PCP - ACO Reach 08/16/24 Siomara Fitzgerald DO [address] [place], [place] [address] Referring Physician Neurology 05/30/24 Sugar Arenas, FABIANO [address] [place], [place] [address] Buildings And Grounds Superintendent Family Medicine 01/16/25 03/04/25 documented as of this encounter
--- OUTSIDE RECORDS SUMMARY | 2025-04-28 08:17 | XMS_ITS | Encounter Summary ---
Author Organization [facility] Address [address] [place] [address] Care Team Providers Care Supervisor Assembly And Packing Name Role Phone Latrell Mckeon MD Primary Care Provider [phone] Siomara Fitzgerald DO Unavailable [phone] Latrell Mckeon MD Unavailable Sugar Arenas INVENTORY CONTROL ASSOCIATE Unavailable [phone] Encounter Details Date Type Department Care Team (Late st Contact Info) Description 12/04/2024 Abstract [facility] [address] [place] [address] Latrell Mckeon MD [address] [place] [address] Social History Tobacco Use Types Packs/Day Years [...] often do you attend chur ch or episcopalian services? Patient declined 02/02/2024 Do you belong to any clubs o r organizations such as sikh groups, unions, fraternal or athletic groups, or [...] Recorded Patient Health Questionnaire-2 Score 0 08/27/2024 [facility] of Occupat ional Health - Occupational [...] time in the past [address] [facility], were you homeless or living in a [...] Visit [facility] [address] [place] [address] CruzSugar S, AUD [address] [place] [address] 06/09/2025 1:10 PM EST Office Visit [facility] 112 [facility] 130 [place] [address] Layla Houston MD [address] [facility] 130 [place] [address] documented as of this encounter Visit Diagnoses Not on filedocumented in this encounter Additional Health Concerns Assessment Noted Time PHQ-9 Depression Total Score: 4 08/27/19 25 10:00 AM EST documented as of this encounter Care Teams Supervisor Assembly And Packing Relationship Specialty Start Date End Date Latrell Mckeon MD PCP - General Family Medicine 08/05/23 Latrell Mckeon MD [address] [place] [address] PCP - ACO Reach 08/16/24 Siomara Fitzgerald DO [address] [place], [place] [address] Referring Physician Neurology 05/30/24 Sugar Arenas, FABIANO [address] [place], [place] [address] Outreach Team Member Family Medicine 01/16/25 03/04/25 documented as of this encounter
--- OUTSIDE RECORDS SUMMARY | 2025-04-28 08:17 | XMS_ITS | Encounter Summary ---
Author Organization [facility] Address [address] [place] [address] Care Team Providers Care Manager Talent Acquisition Name Role Phone Latrell Mckeon MD Primary Care Provider [phone] Siomara Fitzgerald DO Unavailable [phone] Latrell Mckeon MD Unavailable uSgar Arenas OTR VAN CDL TRUCK DRIVER Unavailable [phone] Encounter Details Date Type Department Care Team (Late st Contact Info) Description 12/16/2024 Orders Only [facility] [address] [place] [address] Latrell Mckeon MD [address] [place] [address] Social History Tobacco Use Types Packs/Day Years [...] often do you attend chur ch or worship services? Patient declined 02/02/2024 Do you belong to any clubs o r organizations such as hinduism groups, unions, fraternal or athletic groups, or [...] Recorded Patient Health Questionnaire-2 Score 0 08/27/2024 [facility] of Occupat ional Health [...] [facility] [address] [place] [address] Sugar Cruz S, AUD [address] [place] [address] 06/09/2025 1:10 PM EST Office Visit MARIANNE [facility] Otolaryngology 112 [facility] 130 [place] [address] Layla Houston MD [address] [facility] 130 [place] [address] documented as of this encounter Procedures Procedure Name Priority Date/Time Associated Diagnosis Comments SCANNED LABS Routine 12/16/2024 2:53 PM EDT SCANNED LABS Routine 12/16/2024 1:12 PM EDT documented in this encounter Results * SCANNED LABS (12/16/2024 2:53 PM EDT) Latrell Mckeon MD LAB CHG PERFORMABLES Final Resul t * SCANNED LABS (12/16/2024 1:12 PM EDT) us Latrell Mckeon MD LAB CHG PERFORMABLES Final Resul t documented in this encounter Visit Diagnoses Not on filedocumented in this encounter Additional Health Concerns Assessment Noted Time PHQ-9 Depression Total Score: 4 08/27/19 25 10:00 AM EST documented as of this encounter Care Teams Manager Talent Acquisition Relationship Specialty Start Date End Date Latrell Mckeon MD PCP - General Family Medicine 08/05/23 Latrell Mckeon MD [address] [place] [address] PCP - ACO Reach 08/16/24 Siomara Fitzgerald DO [address] [place] [address] Referring Physician Neurology 05/30/24 Sugar Arenas, FABIANO [address] [place], [place] [address] Focuser Family Medicine 01/16/25 03/04/25 documented as of this encounter
--- OUTSIDE RECORDS SUMMARY | 2025-04-28 08:18 | XMS_ITS | Encounter Summary ---
Author Organization [facility] Address [address] [place] [address] Care Team Providers Care Clay Digger Name Role Phone Latrell Mckeon MD Primary Care Provider [phone] Siomara Fitzgerald DO Unavailable [phone] Latrell Mckeon MD Unavailable Sugar Arenas ROLLER PAINTER Unavailable [phone] Encounter Details Date Type Department Care Team (Late st Contact Info) Description 02/27/2025 Results Follow-Up [facility] [place] [facility] [address] [place] [address] Latrell Mckeon MD [address] [place] [address] Bilateral screening mammogram Social History Tobacco Use [...] any clubs o r organizations such as pentecostalism groups, unions, fraternal or athletic groups, or [...] Recorded Patient Health Questionnaire-2 Score 0 08/27/2024 [facility] - [...] time in the past 12 m [facility], were you homeless or living in [...] Office Visit [facility] [address] [place] [address] Cruz, Sugar S, AUD [address] [place] [address] 06/09/2025 1:10 PM EST Office Visit [facility] 112 [facility] 130 [place] [address] Layla Houston MD 112 [facility] 130 [place] [address] documented as of this encounter Visit Diagnoses Not on filedocumented in this encounter Additional Health Concerns Assessment Noted Time PHQ-9 Depression Total Score: 4 08/27/19 25 10:00 AM EST documented as of this encounter Care Teams Clay Digger Relationship Specialty Start Date End Date Latrell Mckeon MD PCP - General Family Medicine 08/05/23 Latrell Mckeon MD [address] [facility] [place] [address] PCP - ACO Reach 08/16/24 Siomara Fitzgerald DO [address] [place] [address] Referring Physician Neurology 05/30/24 Sugar Arenas, FABIANO [address] [place] [address] Wireless Internet Installer Family Medicine 01/16/25 03/04/25 documented as of this encounter
--- OUTSIDE RECORDS SUMMARY | 2025-04-28 08:18 | XMS_ITS | Encounter Summary ---
Author Organization [facility] Address [address] [place] [address] Care Team Providers Care Public Health Clinical Nurse Specialist Name Role Phone Latrell Mckeon MD Primary Care Provider [phone] Siomara Fitzgerald DO Unavailable [phone] Latrell Mckeon MD Unavailable Sugar Arenas RN TELEMETRY Unavailable [phone] Encounter Details Date Type Department Care Team (Late st Contact Info) Description 03/27/2024 Orders Only [facility] [address] [place] [address] Katie Hairston MD [address] [place] [address], [address] [address] Social History Tobacco Use Types Packs/Day Years [...] Patient Health Questionnaire-2 Score 0 08/11/2023 [facility] - [...] any time in the past 12 m [facility], were you homeless or living in [...] [facility] [address] [place] [address] Sugar Cruz S, AUD [address] [place] [address] 06/09/2025 1:10 PM EST Office Visit [facility] 112 [facility] 130 [place] [address] Layla Houston MD 112 [facility] 130 [place] [address] documented as of this encounter Procedures Procedure [...] on filedocumented in this encounter Care Teams Public Health Clinical Nurse Specialist Relationship Specialty Start Date End Date Latrell Mckeon MD PCP - General Family Medicine 08/05/23 Latrell Mckeon MD [address] [facility] [place] [address] PCP - ACO Reach 08/16/24 Siomara Fitzgerald DO [address] [place] [address] Referring Physician Neurology 05/30/24 Sugar Arenas, RN TELEMETRY [address] [place], [place] [address] [employer] Family Medicine 01/16/25 03/04/25 documented as of this encounter
--- OUTSIDE RECORDS SUMMARY | 2025-04-28 08:18 | XMS_ITS | Encounter Summary ---
Author Organization [facility] Address [address] [place] [address] Care Team Providers Care Hole Digger Operator Name Role Phone Latrell Mckeon MD Primary Care Provider [phone] Siomara Fitzgerald DO Unavailable [phone] Latrell Mckeon MD Unavailable Sugar Arenas STONE CARRIAGE OPERATOR Unavailable [phone] Encounter Details Date Type Department Care Team (Late Contact Info) Description 11/28/2023 Orders Only [facility] [address] [place] [address] Latrell Mckeon MD [address] [place] [address] Social History Tobacco Use Types Packs/Day Years [...] Department Care Team (Late Contact Info) Description 06/04/2025 3:30 PM EST Office Visit [facility] [address] [facility] [place] [address] Sugar Cruz S, AUD [address] [facility] [place] [address] 06/09/2025 1:10 PM EST Office Visit [facility] [place] [facility] [address] [place] [id number] Layla Houston MD [address] [place] [address] documented as of this encounter Procedures Procedure Name Priority Date/Time Associated Diagnosis Comments MM SCREENING MAMM WITH 3D BARNDIE - US AND ADDITIONAL Routine 11/28/2023 4:02 PM EDT documented in this encounter Results * MM SCREENING MAMM WITH 3D BRANDIE - US AND ADDITIONAL (11/28/2023 4:02 PM EDT) Anatomical Region Laterality Modality Radiographic Lani ging us Latrell Mckeon MD IMG XR PROCEDURES Final Result documented in this encounter Visit Diagnoses Not on filedocumented in this encounter Care Teams Hole Digger Operator Relationship Specialty Start Date End Date Latrell Mckeon MD PCP - General Family Medicine 08/05/23 Latrell Mckeon MD [address] [place] [address] PCP - ACO Reach 08/16/24 Siomara Fitzgerald DO [address] [place] [address] Referring Physician Neurology 05/30/24 Sugar Arenas, FABIANO [address] [facility] [place] [address] Clinical Consultant Family Medicine 01/16/25 03/04/25 documented as of this encounter
--- OUTSIDE RECORDS SUMMARY | 2025-04-28 08:18 | XMS_ITS | Encounter Summary ---
Author Organization [facility] Address [address] [place] [address] Care Team Providers Care Commercial Carpenter Name Role Phone Latrell Mckeon MD Primary Care Provider [phone] Siomara Fitzgerald DO Unavailable [phone] Latrell Mckeon MD Unavailable Sugar Arenas DIRECT SUPPORT WORKER Unavailable [phone] Encounter Details Date Type Department Care Team (Late st Contact Info) Description 03/04/2025 Results Follow-Up [facility] [place] [facility] [address] [place] [address] Latrell Mckeon MD [address] [place] [address] [address] LUNG SCREENING LOW DOSE Social History Tobacco Use Types Packs/Day Years [...] any clubs o r organizations such as yarsani groups, unions, fraternal or athletic groups, or [...] Recorded Patient Health Questionnaire-2 Score 0 08/27/2024 [facility] - Occupational [...] Office Visit [facility] [address] [place] [address] CruzSugar S, AUD [address] [place] [address] 06/09/2025 1:10 PM EST Office Visit [facility] [facility] 112 [facility] 130 [place] [address] Layla Houston MD [address] [facility] 130 [place] [address] documented as of this encounter Visit Diagnoses Not on filedocumented in this encounter Additional Health Concerns Assessment Noted Time PHQ-9 Depression Total Score: 4 08/27/19 25 10:00 AM EST documented as of this encounter Care Teams Commercial Carpenter Relationship Specialty Start Date End Date Latrell Mckeon MD PCP - General Family Medicine 08/05/23 Latrell Mckeon MD [address] [facility] [place] [address] PCP - ACO Reach 08/16/24 Siomara Fitzgerald DO [address] [place], [place] [id number] Referring Physician Neurology 05/30/24 Sugar Arenas, FABIANO [address] [place] [address] Paper Cone Maker Family Medicine 01/16/25 03/04/25 documented as of this encounter
--- OUTSIDE RECORDS SUMMARY | 2025-04-28 08:18 | XMS_ITS | Encounter Summary ---
Author Organization [facility] Address [address] [place] [address] Care Team Providers Care Perforator Name Role Phone Latrell Mckeon MD Primary Care Provider [phone] Siomara Matute DO Unavailable [phone] Latrell Mckeon MD Unavailable Sugar Arenas RN HOSPITAL Unavailable [phone] Encounter Details Date Type Department Care Team (Late st Contact Info) Description 03/15/2024 Clinisync Result Encounter [facility] External Department Unsolicited Siomara Matute DO Social History Tobacco Use Types [...] week 02/02/2024 How often do you attend [facility] or gnosticism services? Patient declined 02/02/2024 Do you belong to any clubs o r organizations such as evangelical groups, unions, fraternal or athletic groups, or [...] Recorded Patient Health Questionnaire-2 Score 0 08/11/2023 [facility]at ional [facility] - Occupational Stress Questionnaire Answer Date [...] [facility] [address] [place] [address] Sugar Cruz S, AUD [address] [place] [address] 06/09/2025 1:10 PM EST Office Visit [facility] 112 [facility] 130 [place] [address] Layla Houston MD [address] [place] [address] documented as of this encounter Procedures Procedure Name Priority Date/Time Associated Diagnosis Comments MR HEAD/BRAIN WO CON 03/15/2024 12:12 PM EDT documented in this encounter Results * MR HEAD/BRAIN WO CON (03/15/2024 12:12 PM EDT) Anatomical Region Laterality Modality Other 03/15/2024 12:1 2 PM EDT Narrative 03/15/2024 12:15 PM EDT The [address] [address] Magnetic Resonance Report Signed Patient: SHEY BOSS MR#: [id number] : 1950 Acct:[id number] Age/Sex: 73 / F ADM Date: 03/15/24 Loc: MRI Attending Dr: Siomara Matute D.O. Ordering Physician: Siomara Matute D.O. Date of Service: 03/15/24 Procedure(s): MR head/brain wo con Accession Number(s): [id number] cc: Siomara Matute D.O.; Latrell Mckeon M.D. [place] [address] Patient Name: SHEY BOSS MRN: [id number] date: 1950 Sex: F Assigned Patient Location: MRI Current Patient Location: MRI Accession/Order Number: [id number] Exam Date: 03/15/2024 09:50 Report Date: 03/15/2024 12:12 At the request of: SIOMARA MATUTE Procedure: MR head/brain wo con EXAM: [...] Signed By: 03/15/24 1215 DD/ 1212 TD/TT: Stacker Straightener: Procedure Note Radiology, Radiologist, - 03/15/2024 [place] [address] Magnetic Resonance Report Signed Patient: SHEY BOSS LMR#: [id number] : 1950cct:[id number] Age/Sex: 73 / FADM Date: 03/15/24 Loc: MRI Attending Dr: Siomara Matute D.O. Ordering Physician: Siomara Matute D.O. Date of Service: 03/15/24 Procedure(s): MR head/brain wo con Accession Number(s): [id number] cc: Siomara Matute D.O.; Latrell Mckeon M.D. The [place] [address] Patient Name: SHEY BOSS MRN: [id number] date: 1950 Sex: F Assigned Patient Location: MRI Current Patient Location: MRI Accession/Order Number: [id number] Exam Date: 03/15/2024 09:50 Report Date: 03/15/2024 12:12 At the request of: SIOMARA MATUTE Procedure: MR head/brain wo con EXAM: [...] M.D. Signed By:03/15/24 1215 DD/ 1212 TD/TT: Stacker Straightener: Siomara Matute DO [facility] Final Result documented in this encounter Visit Diagnoses Not on filedocumented in this encounter Care Teams Perforator Relationship Specialty Start Date End Date Latrell Mckeon MD PCP - General Family Medicine 08/05/23 Latrell Mckeon MD [address] [place] [address] PCP - ACO Reach 08/16/24 Siomara Matute DO [address] [place] [address] Referring Physician Neurology 05/30/24 Sugar Arenas, FABIANO [address] [place], [place] [address] Air Cargo Specialist Family Medicine 01/16/25 03/04/25 documented as of this encounter
--- OUTSIDE RECORDS SUMMARY | 2025-04-28 08:18 | XMS_ITS | Clinical Summary ---
Author Organization [facility] Healthcare Address [address] [place] [address] Care Team Providers Care Administrative Manager Name Role Phone Latrell Jack MD Primary Care Provider [phone] Siomara Fitzgerald DO Unavailable [phone] Latrell Jack MD Unavailable Allergies No known active allergies [...] time Active albuterol (2.5 MG/3ML) 0.083% nebulizer solutionIndications: Chronic obstructive pulmonary disease, unspecified COPD type (HCC) Take 3 mL (2.5 mg) by nebulization every 4 (four) hours if needed for wheezing or shortness of breath 150 mL 3 02/09/20 24 Active fluticasone (Flonase) 50 MCG/ACT nasal sprayIndications: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 180 tablet 3 06/13/20 24 Active Docusate Sodium (DSS) 100 MG capsule Take 100 mg by mouth every 12 (twelve) hours if needed 07/26/19 25 Active acetaminophen (Tylenol) 500 MG tablet Take 500 mg by mouth every 6 (six) hours if needed for mild pain or moderate pain Take 2 tabs every 6 hours as needed for pain. 07/26/19 25 Active zonisamide (Zonegran) 50 MG capsule Take 100 mg by mouth Daily 08/07/19 25 Active Spiriva HandiHaler 18 MCG inhalation capsuleIndications:C hronic obstructive pulmonary disease, unspecified COPD type (HCC) PLACE 1 CAPSULE (18 MCG) INTO INHALER AND INHALE IN THE MORNING 30 capsule 11 10/30/19 25 Active donepezil (Aricept) 10 MG tabletIndications:Me mike loss TAKE 1 TABLET BY MOUTH EVERYDAY AT BEDTIME 90 tablet 1 11/01/19 25 Active eszopiclone (Lunesta) 2 MG tablet Take 2 mg by mouth at bedtime 02/04/20 25 Active losartan (Cozaar) 100 MG tabletIndications:Es sential hypertension, benign Take 1 tablet (100 mg) by mouth Daily 30 tablet 5 02/25/20 25 Active atorvastatin (Lipitor) 40 MG tabletIndications:Dy slipidemia TAKE 1 TABLET BY MOUTH AT BEDTIME 90 tablet 3 02/29/20 25 Active methocarbamol (Robaxin) 750 MG tabletIndications:De generative lumbar spinal stenosis TAKE 1 TABLET BY MOUTH 4 TIMES A DAY NEEDED FOR MUSCLE SPASMS 60 tablet 2 03/03/20 25 Active Active Problems Problem Noted Date Diagnosed [...] but still problems swallowing. Scheduled for surgery 1/15. Assessment & Plan (02/09/2024 10:31 AM EDT): Denies reflux but developed dysphagia. Increase protonix. Assessment & Plan (08/11/2023 10:22 AM EST): Symptoms controlled with protonix and continue. Morbid obesity due to excess calories 08/11/2023 08/27/2024 Encounters Date Type Department Care Team Description 03/04/2025 Results Follow-Up [facility] [address] [place] [address] LUNG SCREENING LOW DOSE 03/04/2025 Clinisync Result Encounter [facility] External Department Unsolicited Latrell Jack MD 03/04/2025 Patient Outreach [facility] [address] [place] [address] Sugar Arenas AGRICULTURAL RESEARCH ENGINEER 03/01/2025 Refill [facility] [address] [facility] [place] [address] Latrell Jack MD Degenerative lumbar spinal stenosis 02/28/2025 Refill [facility] [address] [place] [address] Latrell Jack MD Dyslipidemia 02/27/2025 Results Follow-Up [facility] [address] [place] [address] Latrell Jack MD Bilateral screening mammogram 02/27/2025 Clinisync Result Encounter [facility] External Department Unsolicited Latrell Jack MD 02/26/2025 Abstract [facility] [address] [place] [address] Latrell Jack MD 02/24/2025 10:30 AM EDT Office Visit [facility] [address] [facility] [place] [address] Latrell Jack MD Essential hypertension, benign (Primary Dx); Chronic obstructive pulmonary disease, unspecified COPD type (HCC); Primary insomnia; Primary osteoarthritis of both knees; Breast cancer screening by mammogram; Former smoker 02/24/[address] [facility] [address] [facility] [place] [address] Latrell Jack MD 02/06/2025 Patient Outreach [facility] [address] [place] [address] Sugar Arenas LSW 02/04/2025 Telephone [facility] [address] [facility] [place] [address] Latrell Jack MD from Last 3 Months Immunizations Immunization Administration [...] often do you attend chur ch or evangelical services? Patient declined 02/02/2024 Do you belong to any clubs o r organizations such as protestant groups, unions, fraternal or athletic groups, or [...] Recorded Patient Health Questionnaire-2 Score 0 08/27/2024 [facility] Stress Questionnaire Answer Date [...] EST Office Visit [facility] [address] [facility] [address] CruzSugar S, AUD [address] [place] [address] 06/09/2025 1:10 PM EST Office Visit [facility] [address] [facility] [address] [place] [address] Layla Houston MD [address] [place] [address] Health Maintenance Due Date Last Done Comments CT Colonography 1950 FIT-DNA 1950 FIT 1950 FOBT 1950 Lung Cancer Screening Shared Decision Making 1950 Sigmoidoscopy 1950 Influenza Vaccine (#1) 2025 , 05/03/2022, 04/12/2021, Additional history exists Medicare Annual Wellness (AWV) 08/27/2025 08/27/2024 Mammogram 02/27/2026 02/27/2025, 02/08, 11/28/2023, Additional history exists Colonoscopy 10/12/2033 10/13/2023, 10/13/2023 Colorectal Cancer Screening 10/12/2033 Pneumococcal Vaccine: 65+ Years Completed 11/25/2021, 05/16/2019, 01/31/2018 Procedures Procedure Name Priority Date/Time Associated Diagnosis Comments CT LUNG SCREENING LOW DOSE 03/04/2025 2:31 PM EDT BI MAMMOGRAM SCREENING BILATERAL Routine 02/27/2025 2:18 PM EDT Breast cancer screening by mammogram MM TOMOSYNTHESIS SCREENING BI 02/27/2025 2:07 PM EDT from Last 3 Months Results * CT LUNG SCREENING LOW DOSE (03/04/2025 2:31 PM EDT) Anatomical Region Laterality Modality Other 03/04/2025 2:31 PM EDT Narrative 03/04/2025 2:33 PM EDT The [address] [address] [address] Scan Report Signed Patient: SHEY BOSS MR#: [id number] : 1950 Acct:[id number] Age/Sex: 74 / F ADM Date: 03/04/25 Loc: CT Attending Dr: Latrell Naderer M.D. Ordering Physician: Latrell Jack M.D. Date of Service: 03/04/25 Procedure(s): CT lung screening low-dose Accession Number(s): [id number] cc: Latrell Jack M.D. [place] [address] Patient Name: SHEY BOSS MRN: [facility]:[id number] date: 1950 Sex: F Assigned Patient Location: CT Current Patient Location: CT Accession/Order Number: [id number] Exam Date: 03/04/2025 13:52 Report Date: 03/04/2025 [...] Jr., D.O. 03/04/2025 2:31 PM Dictation Location: [place] [address] Electronically authenticated by: [id number] Y Date: 03/04/2025 14:31 Dictated By: Claude Bahena M.D. Signed By: 03/04/25 1433 DD/ 143 TD/TT: Non Profit Director: Procedure Note Radiology, Radiologist, - 03/04/2025 [place] [address] CT Scan Report Signed Patient: SHEY BOSS LMR#: [id number] : 1950cct:[id number] Age/Sex: 74 / FADM Date: 03/04/25 Loc: CT Attending Dr: Latrell Jack M.D. Ordering Physician: Latrell Jack M.D. Date of Service: 03/04/25 Procedure(s): CT lung screening low-dose Accession Number(s): [id number] cc: Latrell Jack M.D. The [address] [address] Patient Name: SHEY BOSS MRN: [id number] date: 1950 Sex: F Assigned Patient Location: CT Current Patient Location: CT Accession/Order Number: [id number] Exam Date: 03/04/2025 13:52 Report Date: 03/04/2025 14:31 At the request of: LATRELL JACK MD Procedure: CT lung screening low-dose CT CHEST WITHOUT CONTRAST, LOW DOSE SCREENING: CLINICAL DATA: A 74-year old former smoker, smoking for 88 pack-years. COMPARISON: CT 07/28/2022 TECHNIQUE: Noncontrast axial CT scan images of the chest were obtainedunder the low dose screening CT protocol. Coronal and sagittal reconstructedimages were also submitted. FINDINGS: Mediastinum : Suboptimal evaluation due to low-dose technique. Thoracicaorta appears normal in caliber. Pulmonary trunk appears nondilated. No pericardial effusion. No lymphadenopathy. The esophagus is grossly unremarkable. Lungs: No focal consolidation, pneumothorax or pleural effusion. Tracheaand distal airways appear patent. Diffuse fibrotic changes withouthoneycombing. No suspicious noncalcified pulmonary nodule or mass. Upper abdomen: No acute findings. Bony thorax and chest wall: Soft tissues surrounding the chest wall demonstrate no acute findings. Osseous structures demonstratedegenerative change. CT/CT lung screening low-dose IMPRESSION: NO SUSPICIOUS PULMONARY NODULE OR MASS. LUNG - RADS Version 1.0 Assessment: Category 1, Negative (No nodules and definitely benign nodules). Management: Continue annual lung screening with LDCT in 12 months. Impression dictated by: Claude Bahena Jr., D.O. 03/04/2025 2:31 PM Dictation Location: [place] [address] Electronically authenticated by: [id number] Y Date: 4:31 Dictated By: Claude Bahena M.D. Signed By:03/04/25 1433 DD/ 143 TD/TT: Non Profit Director: Latrell Jack MD [facility] Final Result * Bilateral screening mammogram (02/27/2025 2:18 PM EDT) Latrell Jack MD IMG BI PROCEDURES Final Result Performing Organization Address City/State/[facility] Co de Phone Number [address] [address], [place] * MM TOMOSYNTHESIS SCREENING BI (02/27/2025 2:07 PM EDT) Anatomical Region Laterality Modality Other 02/27/2025 2:07 PM EDT Narrative 02/27/2025 2:07 PM EDT [address] [address] Mammography Report Signed Patient: SHEY BOSS MR#: [id number] : 1950 Acct:[id number] Age/Sex: 74 / F ADM Date: 02/27/25 Loc: MAMMO Attending Dr: Latrell Jack M.D. Ordering Physician: Latrell Jack M.D. Results: Date of Service: 02/27/25 Follow Up: Procedure(s): MM tomosynthesis screening BI Accession Number(s): [id number] cc: Latrell Jack M.D. Patient Name: SHYE BOSS MR#: [id number] : 1950 Exam Date: 02/27/2025 Ordering Doctor: [...] lung cancer at age 46. LOCATION: The [facility] BREAST COMPOSITION: The breasts are [...] Signed By: 02/27/25 1407 DD/ 1407 TD/TT: Non Profit Director: Procedure Note Radiology, Radiologist, MD - 02/27/2025 [place] [address] Mammography Report Signed Patient: SHEY BOSS LMR#: [id number] : 1950cct:[id number] Age/Sex: 74 / FADM Date: 02/27/25 Loc: MAMMO Attending Dr: Latrell Jack M.D. Ordering Physician: Latrell Jack M.D.Results: Date of Service: 02/27/25Follow Up: Procedure(s): MM tomosynthesis screening BI Accession Number(s): [id number] cc: Latrell Jack M.D. Patient Name: SHEY BOSS MR#: [id number] : 1950 Exam Date: 02/27/2025 Ordering Doctor: DR LATRELL JACK . RADIOLOGY REPORT PROCEDURE: MM TOMOSYNTHESIS SCREENING BI COMPARISON: MM TOMOSYNTHESIS SCREENING BI, 11/28/2023. MG MAMM [id number] RONALD CAD, 11/24/2022. MG MAMM SCREEN 3D RONALD CAD, 11/11/2021. MG MAMM [id number] RONALD CAD, 11/05/2020. INDICATIONS: Screenng Calculator Name NCI Breast Cancer Risk Assessment Tool 5 Year Breast Cancer Risk 2.00% Lifetime Breast Cancer Risk 4.80% Personal Breast Cancer No Personal Ovarian Cancer No Treatments None Family Cancers Father with lung cancer at age 45. LOCATION: [facility] BREAST COMPOSITION: The breasts are [...] Pa Villa M.D. Signed By:02/27/25 1407 DD/ 1407 TD/TT: Non Profit Director: Latrell Jack MD [facility] Final Result from Last 3 [place] [address] [employer] MEDICARE SUPPLEMENT Care Teams Administrative Manager Relationship Specialty Start Date End Date Latrell Jack MD PCP - General Family Medicine 08/05/23 Latrell Jack MD [address] [facility] [place] [address] PCP - ACO Reach 08/16/24 Siomara Fitzgerald DO [address] [place] [address] Referring Physician Neurology 05/30/24
--- OUTSIDE RECORDS SUMMARY | 2025-04-28 08:18 | XMS_ITS | Encounter Summary ---
Author Organization [facility] Address [address] [place] [address] Care Team Providers Care Stave Mill Hand Name Role Phone Latrell Mckeon MD Primary Care Provider [phone] Siomara Fitzgerald DO Unavailable [phone] Latrell Mckeon MD Unavailable Sugar Arenas ADJUNCT PHYSICAL EDUCATION INSTRUCTOR Unavailable [phone] Encounter Details Date Type Department Care Team (Late st Contact Info) Description 02/26/2025 Abstract [facility] [place] [facility] [address] [place] [address] Latrell Mckeon MD [address] [place] [address] Social History Tobacco Use Types Packs/Day Years [...] any clubs o r organizations such as bahai groups, unions, fraternal or athletic groups, or [...] Recorded Patient Health Questionnaire-2 Score 0 08/27/2024 [facility] - [...] [facility] [address] [place] [address] CruzSugar S, AUD [address] [place] [address] 06/09/2025 1:10 PM EST Office Visit [facility] [place] [facility] [address] [facility] 130 [place] [address] Layla Houston MD [address] [facility] 130 [place] [address] documented as of this encounter Visit Diagnoses Not on filedocumented in this encounter Additional Health Concerns Assessment Noted Time PHQ-9 Depression Total Score: 4 08/27/19 25 10:00 AM EST documented as of this encounter Care Teams Stave Mill Hand Relationship Specialty Start Date End Date Latrell Mckeon MD PCP - General Family Medicine 08/05/23 Latrell Mckeon MD [address] [place] [address] PCP - ACO Reach 08/16/24 Siomara Fitzgerald DO [address] [place], [place] [address] Referring Physician Neurology 05/30/24 Sugar Arenas, FABIANO [address] [place], [place] [address] Tactical Air Control Party Manager Family Medicine 01/16/25 03/04/25 documented as of this encounter
--- OUTSIDE RECORDS SUMMARY | 2025-04-28 08:18 | XMS_ITS | Encounter Summary ---
Author Organization [facility] Address [address] [place] [address] Care Team Providers Care Wetlands Technician Name Role Phone Latrell Mckeon MD Primary Care Provider [phone] Siomara Fitzgerald DO Unavailable [phone] Latrell Mckeon MD Unavailable Sugar Arenas YARN DRY ROOM WORKER Unavailable [phone] Encounter Details Date Type Department Care Team (Late st Contact Info) Description 08/13/2023 Orders Only [facility] [place] [facility] [address] [place] [address] Latrell Mckeon MD [address] [place] [address] Social History Tobacco Use Types Packs/Day Years [...] Office Visit [facility] [address] [facility] [place] [address] Sugar Cruz, AUD [address] [place] [address] 06/09/2025 1:10 PM EST Office Visit [facility] [place] [facility] [address] [facility] [address] [place] [address] Layla Houston MD [address] [facility] [address] [place], [place] [address] documented as of this encounter Visit Diagnoses Not on filedocumented in this encounter Care Teams Wetlands Technician Relationship Specialty Start Date End Date Latrell Mckeon MD PCP - General Family Medicine 08/05/23 Latrell Mckeon MD [address] [facility] [place] [address] PCP - ACO Reach 08/16/24 Siomara Fitzgerald DO [address] [place] [address] Referring Physician Neurology 05/30/24 Sugar Arenas LSW [address] [place] [address] Machine Cloth Measurer Family Medicine 01/16/25 03/04/25 documented as of this encounter
--- OUTSIDE RECORDS SUMMARY | 2025-04-28 08:18 | XMS_ITS | Clinical Summary ---
Author Organization [facility] Address [id number] [address] [place] [address] Care Team Providers Care Seasonal Tax Preparer Name Role Phone Latrell Mckeon MD Primary Care Provider [phone] Allergies No known active allergies Medications zolpidem (AMBIEN) 10 mg tablet Take 10 mg by mouth daily. 10/13/2020 Active famotidine (PEPCID) 40 mg tablet Take 40 mg by mouth 2 (two) times a day. 11/08/2020 Active pantoprazole (PROTONIX) 40 mg EC tablet Take 40 mg by mouth daily. Active [id number] A-calcium &mins (THERAGRAN-M) 9 mg iron-400 mcg [...] 09/21/2001 Fall Risk Screening 09/21/2016 COVID-19 Vaccine (2024-2 6 season) 2025 04/12/2021, 09/14/2020, 08/27/2020 Influenza Vaccine 03/10/2025 04/12/2021, , 05/16/2019, Additional history exists Medical Devices Not on file Insurance MEDICARE [employer] Care Teams Seasonal Tax Preparer Relationship Specialty Start Date End Date Latrell Mckeon MD PCP - General Family Medicine 11/09/20
--- OUTSIDE RECORDS SUMMARY | 2025-04-28 08:18 | XMS_ITS | Encounter Summary ---
Author Organization [facility] Address [address] [place] [address] Care Team Providers Care Financial Management Name Role Phone Latrell Mckeon MD Primary Care Provider [phone] Siomara Fitzgerald DO Unavailable [phone] Latrell Mckeon MD Unavailable Sugar Arenas BARREL BANDER Unavailable [phone] Encounter Details Date Type Department Care Team (Late st Contact Info) Description 11/28/2023 Clinisync Result Encounter [facility] External Department Unsolicited Latrell Mckeon MD [address] [facility] [place] [address] Social History Tobacco Use Types Packs/Day Years Used Date Smoking Tobacco: Former Cigarettes 1 40 1 2 - 2011 Smokeless Tobacco: Never PHQ-2 Answer [...] Visit [facility] [address] [place] [address] Sugar Cruz, AUD [address] [place] [address] 06/09/2025 1:10 PM EST Office Visit [facility] [place] [facility] [address] [facility] [address] [place] [address] Layla Houston MD 112 [facility] [address] [place] [address] documented as of this encounter Procedures Procedure Name Priority Date/Time Associated Diagnosis Comments MM TOMOSYNTHESIS SCREENING BI 11/28/2023 3:15 PM EDT documented in this encounter Results * MM TOMOSYNTHESIS SCREENING BI (11/28/2023 3:15 PM EDT) Anatomical Region Laterality Modality Other 11/28/2023 3:15 PM EDT Narrative 11/28/2023 3:16 PM EDT [address] [address] Mammography Report Signed Patient: SHEY MCKOY MR#: [id number] : 1950 Acct:[id number] Age/Sex: 73 / F ADM Date: 11/28/23 Loc: MAMMO Attending Dr: Latrell Mckeon M.D. Ordering Physician: Latrell Mckeon M.D. Results: Date of Service: 11/28/23 Follow Up: Procedure(s): MM tomosynthesis screening BI Accession Number(s): [id number] cc: Latrell Mckeon M.D. Patient Name: SHEY MCKOY MR#: [id number] : 1950 Exam Date: 11/28/2023 Ordering Doctor: [...] lung cancer at age 46. LOCATION: [facility] BREAST COMPOSITION: The breasts are almost [...] Signed By: 11/28/23 1516 DD/ 1515 TD/TT: Corporate Legal Assistant: Procedure Note Radiology, Radiologist, MD - 11/28/2023 [place] [address] Mammography Report Signed Patient: SHEY MCKOY LMR#: [id number] : 1950cct:[id number] Age/Sex: 73 / FADM Date: 11/28/23 Loc: MAMMO Attending Dr: Latrell Mckeon M.D. Ordering Physician: Latrell Mckeon M.D.Results: Date of Service: 11/28/23Follow Up: Procedure(s): MM tomosynthesis screening BI Accession Number(s): [id number] cc: Latrell Mckeon M.D. Patient Name: SHEY MCKOY MR#: [id number] : 1950 Exam Date: 11/28/2023 Ordering Doctor: [...] lung cancer at age 46. LOCATION: [facility] BREAST COMPOSITION: The breasts are almost [...] M.D. Signed By:11/28/23 1516 DD/ 1515 TD/TT: Corporate Legal Assistant: Latrell Mckeon MD [facility] Final Result documented in this encounter Visit Diagnoses Not on filedocumented in this encounter Care Teams Financial Management Relationship Specialty Start Date End Date Latrell Mckeon MD PCP - General Family Medicine 08/05/23 Latrell Mckeon MD [address] [facility] [place] [address] PCP - ACO Reach 08/16/24 Siomara Fitzgerald DO [address] [place] [address] Referring Physician Neurology 05/30/24 Sugar Arenas, FABIANO [address] [place] [address] E Business Consultant Family Medicine 01/16/25 03/04/25 documented as of this encounter
--- OUTSIDE RECORDS SUMMARY | 2025-04-28 08:18 | XMS_ITS | Encounter Summary ---
Author Organization [facility] Address [address] [place] [address] Care Team Providers Care It Generalist Name Role Phone Katie Hairston MD Unavailable [phone] Latrell Mckeon MD Primary Care Provider [phone] Source Comments In the event this information is protected by the Federal Confidentiality of Alcohol and Drug AbusePatient Records regulations: The Federal rules restrict any use of the information to criminally investigate or prosecute any alcohol or drug abuse patient.[facility] Encounter Details Date Type Department Care Team (Latest Contact Info) Description 04/22/2025 Travel Social History Tobacco Use Types Packs/Day Years Used Date Smoking Tobacco: Former Cigarettes 2 - 1967 Smokeless Tobacco: Never Comments:Age 17 - 61, 1/2 - 2 PPD, quit while at 2 PPD Alcohol Use Standard Drinks/Week Comments Not Currently 0 (1 standard drink = 0.6 oz pur e alcohol) Area Deprivation Index Answer Date Monster rded National Score (1-100), lower number is lower ri sk 91 04/29/2024 State Score (1-10), lower number is lower risk 9 04/29/2024 Data from: https://www.neighborhoodatlas.medicine.[employer].edu/. Last address used for calculation [address] [facility] 04/29/2024 Comments No Sex and Gender Information Value Date Recorded Sex Assigned at Not on file Legal Sex Female 3:17 PM EDT Gender Identity Female 04/23/2024 1:21 PM EDT Sexual Orientation Not on file documented as of this encounter Functional Status * Are you [...] 07/26/2024 9:53 AM Alessandra Thorpe RN * Because of a physical, mental, [...] Alessandra Thorpe RN documented in this encounter Plan of Treatment Not on file documented as of this encounter Visit Diagnoses Not on filedocumented in this encounter Care Teams It Generalist Relationship Specialty Start Date End Date Latrell Mckeon MD [address] [place] [address] PCP - General Family Medicine 07/01/24 Katie Hairston MD [address] [place] [address] Internal Medicine 04/02/24 documented as of this encounter
--- OUTSIDE RECORDS SUMMARY | 2025-04-28 08:18 | XMS_ITS | Clinical Summary ---
Author Organization [facility] Address [address] [place] [id number] Care Team Providers Care Cpa Tax Name Role Phone Katie Hairston MD Unavailable [phone] Latrell Mckeon MD Primary Care Provider [phone] Allergies No known active allergies Medications Vitamin [...] obesity due to excess calories 09/16/2021 07/23/2024 Encounters Date Type Department Care Team Description 04/23/2025 11:00 AM EDT Office Visit General Surgery [address] [place] [address] Katarzyna Grover APRN.SUPER[employer]OR [employer] Paraesophageal hernia (Primary Dx) 04/22/2025 Travel from Last 3 Months Family History Medical History Relation Comments Anesthesia Problems No Family History Social History Tobacco Use Types Packs/Day Years Used Date Smoking Tobacco: Former Cigarettes 2 - 1967 Smokeless Tobacco: Never Tobacco Cessation:Counseling Given: [...] is lower risk 9 04/29/2024 Data from: https://www.neighborhoodatlas.medicine.[facility].edu/. Last address used for calculation [address] [facility] 04/29/2024 Comments No Sex and Gender Information [...] F) 04/23/2025 11:12 AM EDT Respiratory Rate 18 07/26/2024 9:55 AM EST Oxygen Saturation 98% 07/26/2024 9:55 AM EST Inhaled Oxygen Concentration - - Weight 103.4 kg (228 lb) 04/23/2025 11:12 AM EDT Height 165.1 cm (5' 5 ) 04/23/2025 11:12 AM EDT Body Mass Index 37.94 04/23/2025 11:12 AM EDT Plan of Treatment Health Maintenance Due Date Last Done Comments Annual PCP Team Chronic Dise ase Visit 09/21/1969 Hepatitis C Screening 09/21/1969 DTaP,Tdap,Td Vaccine (1 - Tdap) 09/21/1970 CT Colonography 09/21/1996 Cologuard (FIT-DNA) 09/21/1996 Colonoscopy 09/21/1996 Colorectal Cancer Screening 09/21/1996 Fecal Occult Blood 09/21/1996 Lipid Screening 09/21/1996 Sigmoidoscopy 09/21/1996 Shingrix Vaccine (1 of 2) 09/21/2001 Medicare Annual Wellness Visit 09/07/2016 Bone Density Screening 09/21/2016 Advance Directive Discussion 07/10/2024 Covid-19 Vaccine (6 - 2024-2 6 season) 2025 03/27/2023, 05/03/2022, 04/12/2021, Additional history exists Influenza Vaccine (#1) 2025 , 05/03/2022, 04/12/2021, Additional history exists Mammogram Screening 02/27/2026 02/27/2025 Diabetes Screening 07/26/2027 07/26/2024, 0 07/24/2024, 07/23/2024 Pneumococcal Vaccine: 50+ Completed 2021, 05/16/2019, 01/31/2018 RSV Vaccine Completed 03/27/2023 Medical Devices Implanted Type Area Geospatial Applications Developer Device Identifier Shelf Expiration Date Model / Serial / Lot Sumr[employer] Thk1.65mm Ptfe 4x.5in Cardiovascular Sterile - [id number] Implanted:Qty: 1 on 07/24/2024 at [facility] Implant N/A: Abdomen BARD PERIPHERAL VASCULAR 01/04/2029 [id number] / / [id number] Procedures Procedure Name Priority Date/Time Associated Diagnosis Comments CT OUTSIDE CD DICOM IMPORT 03/04/2025 BASIC METABOLIC PANEL Routine 07/26/2024 1:13 AM EST from Last 3 Months or Most Recently Relevant to Health Maintenance Results * CT-CT LUNG SCREENING LOW-DOSE IMPORT (03/04/2025) Anatomical Region Laterality Modality Other 03/04/2025 Narrative 04/23/2025 5:33 PM EDT Images were obtained outside of [facility] Procedure Note Provider, [facility] - 04/23/2025 Images were obtained outside of [facility] Provider RADIOLOGY Final Result * (ABNORMAL) BASIC METABOLIC PANEL (07/26/2024 1:13 AM EST) Glucose 112(H) 74 - 99 mg/dL 07/26/2024 2:33 AM EST [facility] Comment: The [place] Diabetes Association (ADA) provides guidance for cutoff [...] Standards of Medical Care in Diabetes 2016, [place] Diabetes Association. Diabetes Care. 2016.39(Suppl 1). BUN 10 7 - 21 mg/dL 07/26/2024 2:33 AM EST [facility] Creatinine 0.92 0.58 - 0.96 mg/dL 07/26/2024 2:33 AM EST [facility] Sodium 143 136 - 144 mmol/L 07/26/2024 2:33 AM EST [facility] Potassium 3.4(L) 3.7 - 5.1 mmol/L 07/26/2024 2:33 AM EST [facility] Chloride 107 98 - 107 mmol/L 07/26/2024 2:33 AM EST [facility] CO2 24 22 - 30 mmol/L 07/26/2024 2:33 AM EST [facility] Anion Gap 12 8 - 15 mmol/L 07/26/2024 2:33 AM EST [facility] Calcium, Total 9.0 8.5 - 10.2 mg/dL 07/26/2024 2:33 AM EST [facility] Estimated Glomerular Filtration Rate 66 >=60 mL/min/1.7 3m 07/26/2024 2:33 AM EST [facility] Comment:Estimated Glomerular Filtration Rate (eGFR) [...] 1:13 AM EST 07/26/2024 1:22 AM EST [facility] Final Result [facility] [address] [address], from Last 3 Months or Most Recently Relevant to Health Maintenance Insurance [employer] MEDICARE MEDICARE RAILROAD Care Teams Cpa Tax Relationship Specialty Start Date End Date Latrell Mckeon MD [address] [place] [address] PCP - General Family Medicine 07/01/24 Katie Hairston MD [address] [place] [id number] Internal Medicine 04/02/24
--- OUTSIDE RECORDS SUMMARY | 2025-04-28 08:29 | XMS_ITS | CCD ---
Author Organization [facility] CliniSyde Care Team Providers Care Studio Designer Name Role Phone FREDY, DR CHAPARRO Attending Unavailable NADERER, DR LATRELL Flood Primary Care Unavailable Davidebfaby, DR Blue Consulting Unavailable HAY, DR CHAPARRO [...] COREY Consulting Unavailable NADEGE, AMAR Consulting Unavailable LANGENBERGARLEN Consulting Unavailable NADERER, DR LATRELL Flood Admitting Unavailable NADERER, DR LATRELL Flood Attending Unavailable NADERER, DR LATRELL Flood Primary Care Unavailable Davidebfaby, [...] Unavailable Latrell Jack MD Primary Care Provider [phone] GUERO, LATRELL Primary Care Physician Pa WEBB Referring Unavailable NILL, Pa Vivas Attending Unavailable Pa WEBB Admitting Unavailable Dafne Spears Referring Unavaila ble Dafne Spears Attending Unavaila ble Sarmini, Wilson Talal Admitting Unavaila ble Sarmini, Wilson Talal Referring Unavaila ble Sarmini, Wilson Talal Attending Unavaila ble Sarmini, Wilson Talal Admitting Unavaila ble Sarmini, Wilson Talal Attending Unavaila ble Pa WEBB Attending Unavailable LATRELL JACK Referring Unavailable Yovanny OLIVO, Dafne Torres Unavailable [phone] Diomedes Fitzgerald DO Unavailable Latrell Jack MD Primary Care Provider Yovanny OLIVO, Dafne Junior Unavailable Latrell Jack MD Unavailable Elmer Kohli Attending Unavailable Elmer Kohli Attending Unavailable Latrell Jack MD Primary Care Provider Julio OLIVO, Erik Admit Provider Julio OLIVO, Erik Attending Provider Joce OLIVO, Tra Attending Provider Julio OLIVO, Erik Attending Provider Julio OLIVO, Erik Other Provider Diomedes Fitzgerald DO Attending Provider Saundra OLIVO, Andrius Benedict Attending Unavailable Saundra OLIVO, Andrius Vytautdenis Attending Unavailable Gishannon OLIVO, Andrius Vytautas Attending Unavailable Giyaniqueitis , Andrius Vytautdenis Attending Unavailable Gishannon OLIVO, Andrius Vytautdenis Attending Unavailable Saundra OLIVO, Andrius Vytautdenis Attending Unavailable Sugar Barragan Unavailable [phone] LATRELL JACK Attending Unavailable SANDRA ARCOS Attending Unavailable LATRELL JACK Attending Unavailable LATRELL JACK Attending Unavailable DIOMEDES FITZGERALD Attending Unavailable LATRELL JACK Referring Unavailable DIOMEDES FITZGERALD Referring Unavailable MAO MORROW Attending Unavailable NADERER, LATRELL Attending Unavailable SANDRA ARCOS Attending Unavailable Dagoberto MARGIN TRIMMER, Sugar Unavailable Guero OLIVO, Latrell Primary Care Provider Erik Kim MD Attending Provider [phone] Latrell Jack MD Attending Provider Guero OLIVO, Latrell Primary Care Provider Erik Kim MD Attending Provider Elmer Suh DO Attending Provider [phone] DEB, XAVIER MAYFIELD Referring Unava ilable NADERER, LATRELL A Primary Care Unavailable BEFFA, XAVIER MAYFIELD Referring Unava ilable NADERER, LATRELL A Primary Care Unavailable BEFFA, XAVIER MAYFIELD Attending Unava ilable DAFNE SPEARS Referring Unavailable JAMIL DELACRUZ Referring Unavailable NADERER, LATRELL A Primary Care Unavailable BEFFA, XAVIER MAYFIELD Admitting Unava ilable BEFFA, XAVIER MAYFIELD Attending Unava ilable KATARZYNA SNYDER Referring Unavailable NADERER, LATRELL A Primary Care Unavailable KATARZYNA SNYDER Attending Unavailable SELF Referring Unavailable NADERER, LATRELL A Primary Care Unavailable KATARZYNA SNYDER Attending Unavailable BARI CASTILLO Referring Unavailable NADERER, LATRELL A Primary Care Unavailable BEFFA, XAVIER MAYFIELD Referring Unava ilable NADERER, LATRELL A Primary Care Unavailable Erik Kim Admitting Unavailab le Naderer, Latrell Primary Care Unavailable Tra Hobson Attending Unavailable Erik Kim Attending Unavailab le Naderer, Latrell Primary Care Unavailable Erik Kim Admitting Unavailab le Allergies Allergy Classification Reported Allergen(s) Allergy Type Date of Onset Reaction(s) Facility (1 source) Amino Acids Drug Allergy [facility] Repository Medications Current Medications Medication Drug [...] daily as needed for pain HYDROcodone-acetami nophen ([place]) 5-325 MG tablet Indications: Degenerative lumbar spinal stenosis Take 1 tablet by mouth 4 (four) times a day as needed for severe pain for up to 5 days 20 tablet 12/04/2024 12/09/2024 Active albuterol 0.83 mg/ml inhalation solution (20 sources) beta2-Adrenergic Agonist Start: 04-09-2025 take 2.5 mg by inhalation every four hours as needed Albuterol Sulfate 2.5 mg /3 mL (0.083 %) solution for nebulization Active 2.5 MG INHALATION Every 4 hours as needed April 09, 2025 12:00am Complies with drug therapy Start: 02-23-2024 albuterol 0.08 3% Inh Marlin 3 mL Refill(s) 0, 150 [...] ALBUTEROL INHALA TION Inhale as instructed. Active aspirin 81 mg oral tablet (20 [...] MG PO Daily December 12, 2024 12:00am Complies with drug therapy Calcium (4 sources) Phosphate Binder, Calcium Start: [...] carbonate 1500 mg oral tablet (20 sources) Start: 04-09-2025 take 1 tablet by mouth twice daily Calcium Carbonate (Calcium 600) 600 mg calcium (1,500 mg) tablet Active 600 MG PO Twice daily April 09, 2025 12:00am Complies with drug therapy take 1 tablet by mouth in the mo rning calcium carbonate 1500 (600 Ca) MG tablet Take 1 tablet by mouth in the morning and 1 tablet in the evening. Take with meals. Active cholecalciferol 0.025 mg oral tablet (20 sources) Vitamin D Start: 04-09-2025 take 1 tablet by mouth once daily Cholecalciferol (Vitamin D3) 25 mcg (1,000 unit) tablet Active 25 MCG PO Daily April 09, 2025 12:00am Complies with drug therapy take 1 capsule by mouth once anna ly cholecalciferol (Vitamin D-3) 25 MCG (1000 UT) capsule Take 1 capsule by mouth 1 (one) time each day at the same time Active Cholecalciferol, Vitamin D3, 25 mcg (1,000 unit) cap Take 1 capsule by mouth. Active eszopiclone 2 mg oral tablet (7 sources) Start: 02-03-2025 take 1 tablet by mouth once daily at bedtime Eszopiclone (Lunesta) 2 mg tablet Active 2 MG PO Daily at bedtime February 03, 2025 12:00am Complies with drug therapy famotidine 40 mg oral tablet (20 sources) Histamine-2 Receptor Antagonist Start: 04-09-2025 take 1 tablet by mouth twice daily Famotidine 40 mg tablet Active 40 MG PO Twice daily April 09, 2025 1:27pm Complies with drug therapy Start: 02-03-2025 End: 04-09-2025 take 1 tablet by mouth once daily Famotidine 40 mg tablet Discontinued 40 MG PO Daily February 03, 2025 12:00am April 09, 2025 1:42pm Start: 11-08-2020 famotidine (Pe pcid) 40 MG [...] Active Start: 09-06-2023 Flonase 0.05 m g/inh Hooper 2 spray(s), Nasal, Daily, Refill(s) 0, Dry nasal passages Start Date: 09/06/23 Status: Ordered Repeat number: 1 Start: 06-21-2023 End: 03-26-2024 take 2 spray(s) nasal route in the morning fluticasone (Flonase) 50 MCG/ACT nasal spray Administer 2 sprays into each nostril in the morning. 06/21/2023 03/26/2024 Discontinued losartan potassium 100 mg oral tablet (20 sources) Angiotensin 2 Receptor Martin Start: 04-09-2025 take 1 tablet by mouth once daily Losartan 100 mg tablet Active 100 MG PO Daily April 09, 2025 12:00am Complies with drug therapy Start: 02-24-2025 take 1 tablet by jennifer th once daily losartan (Cozaar) 100 MG tablet Indications: Essential hypertension, benign Take 1 tablet (100 mg) by mouth Daily 30 tablet 5 02/24/2025 Active Start: 06-13-2024 End: 04-09-2025 take 1 tablet by mouth twice daily Losartan 50 mg tablet Discontinued 50 MG PO Twice daily February 03, 2025 12:00am April 09, 2025 1:27pm Start: 02-09-2024 End: 06-13-2024 take 1 tablet [...] 0 Active methocarbamol 750 mg oral tablet (20 sources) Muscle Relaxant Start: 04-09-2025 take 1 tablet by mouth four times daily as needed for muscle spasms Methocarbamol 750 mg tablet Active 750 MG PO Four times daily as needed for muscle spasms April 09, 2025 12:00am Complies with drug therapy Start: 03-03-2025 take 1 tablet by jennifer th four times daily as needed for muscle spasms methocarbamol (Robaxin) 750 MG tablet Indications: Degenerative lumbar spinal stenosis TAKE 1 TABLET BY MOUTH 4 TIMES A DAY NEEDED FOR MUSCLE SPASMS 60 tablet 2 03/03/2025 Active Start: 02-03-2025 End: 04-09-2025 Methocarbamol 500 mg tablet Discontinued 500 MG PO as needed February 03, 2025 12:00am April 09, 2025 1:31pm Start: 12-04-2024 End: 02-03-2025 take 1 tablet by mouth four times daily as needed for pain Methocarbamol 750 mg tablet Discontinued 750 MG PO Four times daily as needed for pain December 12, 2024 12:00am February 03, 2025 3:55pm Start: 12-01-2024 End: 12-04-2024 methocarbamol (Robaxin) 500 MG tablet 12/01/2024 12/04/2024 Discontinued (Reorder) mirtazapine 15 mg oral tablet (12 sources) Start: 02-03-2025 take 1 tablet by mouth once daily at bedtime Mirtazapine 15 mg tablet Active 15 MG PO Daily at bedtime February 03, 2025 12:00am Complies with drug therapy Start: 12-16-2024 End: 02-24-2025 take 1 tablet by mouth once daily at bedtime Mirtazapine 7.5 mg Tablet Discontinued 7.5 MG PO Daily at bedtime December 16, 2024 12:00am February 03, 2025 3:55pm Multiple Vitamin (multivitamin) capsule (20 sources) take 1 capsule by mouth once daily Multiple Vitamin (multivitamin) capsule Take 1 capsule by mouth Daily Active Multivitamin,Tx-Minera ls (Multi-Vitamin Hp/Minerals) capsule (3 sources) Start: 04-09-20 take 1 capsule by mouth once daily Multivitamin,Tx-Minera ls (Multi-Vitamin Hp/Minerals) capsule Active 1 CAP PO Daily April 09, 2025 12:00am Complies with drug therapy ondansetron 4 mg oral tablet (1 source) [...] tablet (20 sources) Proton Pump Inhibitor Start: 02-04-20 take 1 tablet by mouth once daily Pantoprazole 40 mg tablet,delayed release (DR/EC) Active 40 MG PO Daily February 03, 2025 12:00am Complies with drug therapy Start: 03-03-2021 End: 06-13-2024 take 1 tablet [...] 1 capsule by inhalation once daily Tiotropium Leroy (Spiriva With Handihaler) 18 mcg capsule, w/inhalation [...] RESPIMAT INHALATION) Inhale as instructed. Active Tiotropium Leroy (Spiriva With Handihaler) 18 mcg capsule, w/inhalation device (1 source) Start: 12-12-2024 take 1 capsule by inhalation once daily Tiotropium Leroy (Spiriva With Handihaler) 18 mcg capsule, w/inhalation [...] capsule Take 1 capsule by mouth. Active Vitamin E Mixed 400 unit tablet (3 sources) Start: 04-09-2025 take 1 tablet by mouth once daily Vitamin E Mixed 400 unit tablet Active 400 UNIT PO Daily April 09, 2025 12:00am Complies with drug therapy zonisamide 50 mg oral capsule (20 sources) Anti-epileptic Agent Start: 04-09-2025 take 1 capsule by mouth once daily Zonisamide 50 mg capsule Active 100 MG PO Daily April 09, 2025 1:36pm Complies with drug therapy Start: 12-12-2024 End: 04-09-2025 take 1 capsule by mouth twice daily Zonisamide 50 mg capsule Discontinued 50 MG PO Twice daily December 12, 2024 12:00am April 09, 2025 1:42pm Start: 08-07-2024 take 2 capsules by m outh once daily zonisamide (Zonegran) 50 MG capsule Take 100 mg by mouth Daily 08/07/2024 Active Completed/Discontinued Medications Medication Drug Class(es) Dates Sig (Normalized) Sig (Original) baclofen 10 mg oral tablet (19 sources) gamma-Aminobutyri c Acid-ergic Agonist End: 02-24-2025 take 5 mg by mouth in the morning baclofen (Lioresal) 10 MG tablet Take 5 mg by mouth in the morning and 5 mg before bedtime. 02/24/2025 Discontinued docusate sodium 100 mg oral capsule (19 sources) Start: 04-09-2025 End: 04-10-2025 take 1 capsule by mouth twice daily as needed Docusate Sodium 100 mg capsule Discontinued 100 MG PO Twice daily as needed April 09, 2025 12:00am April 10, 2025 11:47am Start: 07-26-2024 Docusate Sodiu m (DSS) 100 [...] mouth at bedtime Donepezil 10 mg tablet Discontinued 10 MG PO Bedtime December 12, 2024 12:00am April 23, 2025 9:36am Start: 02-23-2024 End: 08-27-2024 donepezil 5 mg Tab 30 EA, 0 Refill(s), TAKE 1 TABLET BY MOUTH AT BEDTIME, Refills(s) 0 Start Date: 02/23/24 Status: Ordered Repeat number: 1 One A Day Women's Complete (5 sources) Start: 03-03-2021 One A Day Wome n's Complete Oral, Daily, Refill(s) 0, Prophylaxis Start Date: 03/03/21 Status: Ordered Repeat number: 1 Start: 03-03-2021 One A Day Wome n's Complete Oral, Daily, Refill(s) 0, Prophylaxis Start Date: 03/03/21 Status: Ordered zolpidem tartrate 10 mg oral tablet (20 sources) gamma-Aminobutyric Acid-ergic Agonist Start: 07-31-2024 End: 04-10-2025 take 1 tablet by mouth at bedtime as needed for sleep Zolpidem 10 mg tablet Discontinued 10 MG PO Bedtime as needed for sleep December 12, 2024 12:00am April 10, 2025 11:48am Start: 03-03-2021 End: 07-31-2024 take 1 tablet by mouth once daily at bedtime as needed for sleep zolpidem 12.5 mg oral ER Tab 12.5 mg = 1 tab(s), Oral, Once a day (at bedtime), PRN for sleep, Refills(s) 0 Start Date: 03/03/21 Status: Ordered Repeat number: 1 Problems Active Problems Problem Classification Problem Date Documented Da te Episodic/Chronic Acute cerebrovascular disease (20 sources) Cerebrovascular accident; Translations: [Cerebral infarction, unspecified] Onset: 03-03-2024 Chronic Anxiety disorders (12 sources) Generalized anxiety disorder; Translations: [Generalized anxiety disorder] 04-12-2024 Chronic Chronic obstructive pulmonary disease and bronchiectasis (20 sources) Chronic obstructive pulmonary disease, unspecified; Translations: [Chronic obstructive pulmonary disease with (acute) exacerbation] Onset: 2 08-11-2023 Chronic Delirium, dementia, and amnestic and other cognitive disorders (20 sources) Senile dementia; Translations: [Unspecified dementia without behavioral disturbance] Onset: 4 02-09-2024 Chronic Diabetes mellitus without complication (20 sources) Prediabetes; Translations: [Prediabetes] Onset: 4 08-13-2023 Episodic Disorders of lipid metabolism (20 sources) Hyperlipidemia, unspecified; Translations: [Dyslipidemia] Onset: 2 08-11-2023 Chronic Esophageal disorders (14 sources) Gastroesophageal reflux disease; Translations: [Gastroesophageal reflux [...] insomnia] Onset: 2 08-11-2023 Chronic Mood disorders (15 sources) 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 features; Translations: [Major depressive disorder, recurrent severe without psychotic features] Onset: 5 04-12-2024 Chronic Osteoarthritis (20 sources) Primary gonarthrosis, bilateral; Translations: [Bilateral primary osteoarthritis of knee] Onset: 4 08-11-2023 Chronic Other aftercare (1 source) Postoperative visit; Translations: [Encounter for other specified surgical aftercare] 08-07-2024 Episodic Other bone disease and musculoskeletal deformities (20 sources) Osteopenia; Translations: [Other specified disorders of bone density and structure, other site] Onset: 4 08-11-2023 Episodic Other ear and sense organ disorders (4 sources) Tinnitus; Translations: [Tinnitus, unspecified ear] 04-10-2025 Episodic Other gastrointestinal disorders (20 sources) Dysphagia; Translations: [Dysphagia, unspecified] Onset: Episodic Other hereditary and degenerative nervous system conditions (2 sources) Impaired cognition; Translations: [Mild cognitive impairment, so stated] 03-07-2024 Chronic Other lower respiratory disease (2 sources) Dyspnea on exertion; Translations: [Other forms of dyspnea] 07-23-2024 Episodic Other nervous system disorders (6 sources) [...] 5 07-24-2024 Episodic Other nervous system disorders (6 sources) Pseudodementia; Translations: [Other symptoms and signs involving cognitive functions and awareness] 02-03-2025 Episodic Other non-traumatic joint disorders (1 source) Disorder of shoulder; Translations: [Other specified joint disorders, left shoulder] 04-24-2025 Episodic Other nutritional; endocrine; and metabolic disorders [...] (BMI) of 38.0 to 38.9 in adult ([facility])] Onset: 4 Resolved: 5 05-15-2024 Chronic Other nutritional; endocrine; and metabolic disorders (3 sources) Obesity; Translations: [Obesity, unspecified] Onset: 5 07-23-2024 Chronic Other nutritional; endocrine; and metabolic disorders (1 source) Obese class II; Translations: [Obesity, Class II, BMI 35-39.9] Onset: 5 07-24-2024 Chronic Other upper respiratory disease (20 sources) Allergic rhinitis due to pollen; Translations: [Allergic rhinitis due to pollen] Onset: 4 08-11-2023 Chronic Other upper respiratory disease (5 sources) Seasonal allergic rhinitis 09-06-2023 Chronic Otitis media and related conditions (4 sources) Dysfunction of left eustachian tube; Translations: [Unspecified Eustachian tube disorder, left ear] 04-10-2025 Episodic Residual codes; unclassified (2 sources) Obstructive sleep apnea (adult) (pediatric); Translations: [OBSTRUCTIVE SLEEP APNEA] Onset: 2 Chronic Residual codes; unclassified (20 sources) Obstructive sleep apnea syndrome; Translations: [Obstructive sleep apnea (adult) (pediatric)] Onset: 4 08-11-2023 Chronic Residual codes; unclassified (8 sources) Sleep apnea; Translations: [Sleep apnea, unspecified] 03-03-2021 Chronic Residual codes; unclassified (6 sources) Insomnia; Translations: [Other insomnia] 04-12-2024 Chronic Residual codes; unclassified (20 sources) Edema of lower extremity; Translations: [Localized edema] Onset: 4 08-11-2023 Episodic Residual codes; unclassified (5 sources) Insomnia 09-06-2023 Episodic Residual codes; unclassified (18 sources) Amnesia; Translations: [Other amnesia] Onset: 5 04-12-2024 Episodic Residual codes; unclassified (1 source) History of hernia repair; Translations: [Other specified postprocedural states] Onset: 5 07-24-2024 Episodic Suicide and intentional self-inflicted injury (1 [...] any medical concerns. Unclassified (1 source) manager collection will call you tomorrow, if you miss this call please call back as soon as possible. 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 CURRENT USE OF ASPIRIN] Onset: 02-23-2022 Episodic Other aftercare (8 sources) Patient encounter status; Translations: [Other terminal gauger (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 therapy] Onset: 08-11-2023 08-11-2023 Episodic Other aftercare (20 sources) Long-term current use of drug therapy; Translations: [Other intermediate (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 therapy] Onset: 08-11-2023 08-11-2023 Episodic Other aftercare (1 source) Encounter for other specified surgical aftercare; Translations: [Postoperative visit] Onset: 08-07-2024 Episodic Other bone disease and musculoskeletal deformities [...] [Dyspnea, unspecified] Onset: 11-02-2021 07-23-2024 Episodic Other lower respiratory disease (1 source) Other forms of dyspnea; Translations: [CHENEY (dyspnea on exertion)] Onset: 07-23-2024 Episodic Other nervous system disorders (1 source) Other acute postprocedural pain; Translations: [Acute postoperative pain] Onset: 07-24-2024 Episodic Other non-traumatic joint disorders (1 source) [...] calories] Onset: 09-16-2021 Resolved: 07-23-2024 03-03-2024 Chronic Other screening for suspected conditions (not mental disorders or infectious disease) (20 sources) Encounter for screening mammogram for malignant neoplasm of breast; Translations: [Patient encounter status] Onset: 11-11-2021 Episodic Residual codes; unclassified (20 sources) Hypersomnia; Translations: [...] [Asymptomatic menopausal state] Onset: 09-16-2021 07-23-2024 Episodic Residual codes; unclassified (1 source) Other amnesia; Translations: [Memory loss] Onset: 07-24-2024 Episodic Screening and history of mental health and substance abuse codes (20 sources) Personal history of nicotine dependence; Translations: [Ex-smoker] Onset: 11-04-2021 Episodic Spondylosis; intervertebral disc disorders; other back problems (20 sources) Lumbago with sciatica, left side; Translations: [Chronic back pain ] Onset: 09-16-2021 07-23-2024 Episodic Unclassified (1 source) COUGH, UNSPECIFIED; Translations: [COUGH, UNSPECIFIED] Onset: 02-22-2022 Results Test Name Value Interpretation Reference Range Facility [facility] 04-23-2025 CNOV Office Visit (GENN ) SHEY OBRIEN ([id number]) 1950 F Date Time Provider Department 04/23/25 11:00 AM KATARZYNA SNYDER During your visit today, we recorded the following information about you: Temperature Pulse Blood pressure Weight 97 degrees 85/minute 157/79 103.4 kg Height 1.651 m Olga Lidia Blake MA 04/23/2025 12:10 PM Signed What is the reason for your visit today? Est Who is your referring physician? Dr. Snyder Are you having poor oral intake? NO Have you had unintentional weight loss of 15 lbs/7 Kg in the last 3-6 months? YES Bowels: regular Wound: clean AND dry Temperature: No Drains: No Katarzyna Snyder APRN.CNP 04/23/2025 12:10 PM Signed [facility] Clinic Date: April 23, 2025 Shey Karyn 73 year old female CHIEF COMPLAINT: Patient presents for 1 year follow up. HPI: Here for 1 year follow up after laparoscopic paraesophageal hernia repair on 07/24/[address] BoydMichelle Kat is a 74-year-old female with severe EDWIN and a history of paraesophageal hernia repair (07/24) presenting for a 1-year follow-up. Since her last visit in July, Shey reports a 20 lb weight gain, with her current weight at 203 lbs. She reports frequent loud belching, indigestion, and a sore throat following episodes of belching. She also experiences a slight burning sensation after belching, which resolves spontaneously. She is currently taking famotidine and pantoprazole, though she is nearly out of pantoprazole and does not plan to refill it. She reports feeling full quickly and experiences pain when eating too quickly, which requires her to pause eating. She denies dysphagia, regurgitation, or issues with her surgical incisions. She [...] REVIEW OF SYSTEMS: Constitutional: (+) weight gain Ears/Nose/Mouth/Throat : (+) sore throat, (-) dysphagia Gastrointestinal: (+) belching, (+) indigestion, (+) heartburn, (+) early satiety, (+) flatulence, (-) regurgitation Musculoskeletal: (+) back pain, (+) knee pain PHYSICAL EXAM: BP 157/79 Pulse 85 Temp 36.1 ?C (97 ?F) (Temporal) Ht 165.1 cm (5' 5 ) Wt 103.4 kg (228 lb) BMI 37.94 kg/m? General: No acute distress. Abd: No issues [...] meals, and consider adding a fiber supplement such as Metamucil to help manage symptoms. - Discussed weaning off pantoprazole if not refilled, with gradual tapering every other day or every third day. - Educated patient on the importance of weight loss to reduce risk of hernia recurrence; discussed potentia (more content not included)... Normal [facility] CT LUNG SCREENING LOW DOSEon 03-04-[address] [address] [address] Scan Report Signed Patient: SHEY OBRIEN MR#: [id number] : 1950 Acct:[id number] Age/Sex: 74 / F ADM Date: 03/04/25 Loc: CT Attending Dr: Latrell Jcak M.D. Ordering Physician: Latrell aJck M.D. Date of Service: 03/04/25 Procedure(s): CT lung screening low-dose Accession Number(s): [id number] cc: Latrell Jack M.D. [place] [address] Patient Name: SHEY OBRIEN MRN: [id number] date: 1950 Sex: F Assigned Patient Location: CT Current Patient Location: CT Accession/Order Number: [id number] Exam Date: 03/04/2025 13:52 Report Date: 03/04/2025 [...] 12 months. Impression dictated by: Claude Bahena Jr. DMichelleOMichelle 03/04/2025 2:31 PM Dictation Location: [facility] Electronically authenticated by: [id number] Y Date: 03/04/2025 14:31 Dictated By: Claude Bahena M.D. Signed By: 03/04/25 1433 DD/ 143 TD/TT: Nuclear Medicine Specialist: [facility] Radiology, Radiologist, - 03/04/20[address] [place] [address] [place] Scan Report Signed Patient: SHEY OBRIEN MR#: [id number] : 1950 Acct:[id number] Age/Sex: 74 / F ADM Date: 03/04/25 Loc: CT Attending Dr: Latrell Jack M.D. Ordering Physician: Latrell aJck M.D. Date of Service: 03/04/25 Procedure(s): CT lung screening low-dose Accession Number(s): [id number] cc: Latrell Jack M.D. [place] [address] Patient Name: SHEY OBRIEN MRN: [facility] HOSPITAL:[id number] date: 1950 Sex: F Assigned Patient Location: CT Current Patient Location: CT Accession/Order Number: [id number] Exam Date: 03/04/2025 13:52 Report Date: 03/04/2025 [...] Jr., D.O. 03/04/2025 2:31 PM Dictation Location: [place] [address] Electronically authenticated by: [id number] Y Date: 03/04/2025 14:31 Dictated By: Claude Bahena M.D. Signed By: 03/04/25 1433 DD/ 1431 TD/TT: Nuclear Medicine Specialist: [facility] Radiology Study observation (narrative) [facility] CT LUNG SCREENING LOW DOSEOr dered By: Radiologist Radiology on 03-04-2025 [facility] boo-box Work Phone: MM TOMOSYNTHESIS SCREENING B Ion 02-27-2025 [place] [address] Mammography Report Signed Patient: SHEY OBRIEN MR#: [id number] : 1950 Acct:[id number] Age/Sex: 74 / F ADM Date: 02/27/25 Loc: MAMMO Attending Dr: Latrell Jack M.D. Ordering Physician: Latrell Jack M.D. Results: Date of Service: 02/27/25 Follow Up: Procedure(s): MM tomosynthesis screening BI Accession Number(s): [id number] cc: Latrell Jack M.D. Patient Name: SHEY OBRIEN MR#: [id number] : 1950 Exam Date: 02/27/2025 Ordering Doctor: [...] lung cancer at age 46. LOCATION: [facility] BREAST COMPOSITION: The breasts are almost [...] By: Pa Villa M.D. Signed By: 02/27/25 140 DD/ 06 TD/TT: Nuclear Medicine Specialist: [facility] Radiology, Radiologist, MD - 02/27/2025 [place] [address] Mammography Report Signed Patient: SHEY OBRIEN MR#: [id number] : 1950 Acct:[id number] Age/Sex: 74 / F ADM Date: 02/27/25 Loc: MAMMO Attending Dr: Latrell Jack M.D. Ordering Physician: Latrell Jack M.D. Results: Date of Service: 02/27/25 Follow Up: Procedure(s): MM tomosynthesis screening BI Accession Number(s): [id number] cc: Latrell Jack M.D. Patient Name: SHEY OBRIEN MR#: [id number] : 1950 Exam Date: 02/27/2025 Ordering Doctor: [...] lung cancer at age 46. LOCATION: [facility] BREAST COMPOSITION: The breasts are almost [...] Signed By: 02/27/25 1407 DD/ 06 TD/TT: Nuclear Medicine Specialist: [facility] Radiology Study observation (narrative) [facility] MM TOMOSYNTHESIS SCREENING B IOrdered By: Radiologist Radiology on 02-27-2025 [facility] Work Phone: C Urineon 12-14-2024 Bacteria identified [...] Locations R1: This test was performed at: [facility], [address] [place] [address], [id number] , , [facility] Comment on above: Performed By: #### 2 [id number] #### [facility] [address] [place] [address] Cholesterol [Mass/volume] in Serum or PlasmaOrdered By: Erik Kim on 12-13-2024 Cholesterol [Mass/Vol] Cholesterol [Mass/volume] in Serum or Plasma 140-200 [facility] Comment on above: Chol less than 200 m g/dl low riskChol 201-239 mg/dl borderline riskChol 240 mg/dl and greater high risk Cholesterol [Mass/Vol] 149 mg/dL Normal 140-200 [facility] Comment on above: Chol less than 200 m g/dl low riskChol 201-239 mg/dl borderline riskChol 240 mg/dl and greater high risk Result Comment: Chol less than 200 mg/dl low risk Chol 201-239 mg/dl borderline risk Chol 240 mg/dl and greater high risk Performed By: #### T SH3 wRFLX, LIPID, [id number] #### [facility] [address] [place] [address] [place] Cholesterol in HDL [Mass/vol ume] in Serum or PlasmaOrdered By: Erik Kim on 12-13-2024 Cholesterol in HDL [Mass/Vol] Serum or plasma high density lipoprotein (HDL) cholesterol measurement [facility] Comment on above: HDL CHOL ATP-III CLA SSIFICATION Cardiovascular RiskHDL > or equal to 60 mg/dL LOWHDL < 40 mg/dL HIGH Cholesterol in HDL [Mass/Vol] 42 mg/dL Normal [facility] Comment on above: HDL CHOL ATP-III CLA SSIFICATION Cardiovascular RiskHDL > or equal to 60 mg/dL LOWHDL < 40 mg/dL HIGH Result Comment: HDL CHOL ATP-III CLASSIFICATION Cardiovascular Risk HDL > or equal to 60 mg/dL LOW HDL < 40 mg/dL HIGH Performed By: #### T SH3 wRFLX, LIPID, [id number] #### [facility] [address] [place] [id number] [place] Cholesterol in LDL Calc [Mas s/Vol]Ordered By: Erik Kim on 12-13-2024 Cholesterol in LDL [Mass/Vol] Cholesterol in LDL [Mass/volume] in Serum or Plasma by calculation 0 [facility] Comment on above: LDL ATP III CLASSIFI CATIONLDL less than 100 mg/dL OptimalLDL 100-129 mg/dL Near or above optimalLDL 130-159 mg/dL Borderline highLDL 160-189 mg/dL HighLDL greater than 189 mg/dL Very high Cholesterol in LDL [Mass/Vol] 39 mg/dL 0 [facility] Comment on above: LDL ATP III CLASSIFI CATIONLDL less than 100 mg/dL OptimalLDL 100-129 mg/dL Near or above optimalLDL 130-159 mg/dL Borderline highLDL 160-189 mg/dL HighLDL greater than 189 mg/dL Very high Cholesterol in VLDL Calc [Ma ss/Vol]Ordered By: Erik Kim on 12-13-2024 Cholesterol in VLDL [Mass/Vol] Cholesterol in VLDL [Mass/volume] in Serum or Plasma by calculation [facility] Cholesterol in VLDL [Mass/Vol] 67 mg/dL [facility] Lipid Panelon 12-13-2024 LDL Cholesterol,Calculate d 39 mg/dL Normal 0-100 [facility] Comment on above: Result Comment: LDL ATP III CLASSIFICATION LDL less than 100 mg/dL Optimal LDL 100-129 mg/dL Near or above optimal LDL 130-159 mg/dL Borderline high LDL 160-189 mg/dL High LDL greater than 189 mg/dL Very high Performed By: #### T SH3 wRFLX, LIPID, [id number] #### [facility] [address] Triglyceride w/Reflex 338 mg/dL High 0-149 [facility] Comment on above: Result Comment: TRIG ATP III CLASSIFICATION TRIG less than 150 mg/dL Normal TRIG 150-199 mg/dL Borderline high TRIG 200-500 mg/dL High TRIG greater than 500 mg/dL Very high Standard traceable to the Center for Disease Conrtrol and Prevention (CDC) test method. Performed By: #### T SH3 wRFLX, LIPID, [id number] #### [facility] [address] VLDL CHOLESTEROL 67 mg/dL Normal [facility] Comment on above: Performed By: #### T SH3 wRFLX, LIPID, [id number] #### [facility] [address] Serum or plasma total choles terol/high density lipoprotein (HDL) cholesterol mass ratOrdered By: Erik Kim on 12-13-2024 Cholesterol.total/Cho lesterol in HDL [Mass ratio] Serum or plasma total cholesterol/high density lipoprotein (HDL) cholesterol mass rat <5.0 [facility] Cholesterol.total/Cho lesterol in HDL [Mass ratio] 3.5 {ratio} Normal <5.0 [facility] Comment on above: Performed By: #### T SH3 wRFLX, LIPID, [id number] #### [facility] [address] Thyroid Stim Hormone w/Rflxo n 12-13-2024 Thyroid Stim Hormone w/Rflx 1.95 u[iU]/mL Normal 0.45-5.33 [facility] Comment on above: Performed By: #### T SH3 wRFLX, LIPID, [id number] #### [facility] [address] Thyrotropin [Units/volume] i n Serum or PlasmaOrdered By: Erik Kim on 12-13-2024 TSH Qn Thyrotropin [Units/volume] in Serum or Plasma 0.45-5.33 [facility] TSH Qn 1.95 m[IU]/L 0.45-5.33 [facility] Triglyceride [Mass/volume] i n Serum or PlasmaOrdered By: Erik Kim on 12-13-2024 Triglyceride [Mass/Vol] Triglyceride [Mass/volume] in Serum or Plasma High 0-149 [facility] Comment on above: TRIG ATP III CLASSIF ICATIONTRIG less than 150 mg/dL NormalTRIG 150-199 mg/dL Borderline highTRIG 200-500 mg/dL High TRIG greater than 500 mg/dL Very highStandard traceable to the Center for Disease Conrtrol and Prevention (CDC) test method. Triglyceride [Mass/Vol] 338 mg/dL High 0-149 [facility] Comment on above: TRIG ATP III CLASSIF ICATIONTRIG less than 150 mg/dL NormalTRIG 150-199 mg/dL Borderline highTRIG 200-500 mg/dL High TRIG greater than 500 mg/dL Very highStandard traceable to the Center for Disease Conrtrol and Prevention (CDC) test method. Vitamin D 25 Hydroxy Totalon 12-13-2024 Vitamin D 25 Hydroxy Total 26.8 ng/mL Low 30-100 [facility] Comment on above: Result Comment: FRANCESCO MIN D STATUS 25(OH)VITAMIN D RANGE (ng/mL) Deficient <20 Insufficient 20 to <30 Sufficient 30 to 100 Reference: Abdi MF,Shannon LIZARRAGA, Danyel HICKS, et al. Evaluation,treatment, and prevention of vitamin D deficiency; an Endocrine Society clinical practice guideline. JC. 2010; 96(7):1911-30. PERFORMED BY: [facility] [address] [place] [address] PATHOLOGIST GPS FIELD DATA COLLECTOR AVRIL LEDESMA M.D. Performed By: #### T SH3 wRFLX, LIPID, [id number] #### [facility] [address] Vitamin D+Metabolites [Mass/ volume] in Serum or PlasmaOrdered By: Erik Kim on 12-13-2024 Vitamin D+Metabolites [Mass/Vol] Vitamin D+Metabolites [Mass/volume] in Serum or Plasma Low 30-100 [facility] Comment on above: VITAMIN D STATUS 25( [place])VITAMIN D RANGE (ng/mL) Deficient <20 Insufficient 20 to <30Sufficient 30 to 100Reference: Abdi HAMPTON,Shannon LIZARRAGA, Danyel HICKS, et al. Evaluation,treatment, and prevention of vitamin D deficiency; an Endocrine Society clinical practice guideline. JCEM. 2010; 96(7):1911-30. Vitamin D+Metabolites [Mass/Vol] 26.8 ng/mL Low 30-100 [facility] Comment on above: VITAMIN D STATUS 25( [place])VITAMIN D RANGE (ng/mL) Deficient <20 Insufficient 20 to <30Sufficient 30 to 100Reference: Shannon Remy, Danyel HICKS, et al. Evaluation,treatment, and prevention of vitamin D deficiency; an Endocrine Society clinical practice guideline. EM. 2010; 96(7):1911-30. CBC w/ Auto Diffon 5 Basophil Absolute 0.0 E9/L Normal 0.0-0.2 [facility] Comment on above: Performed By: #### 2 [id number] #### [facility] [address] [place] [address] Basophils/100 WBC (Bld) 0.3 % Normal 0.0-2.0 [facility] Comment on above: Performed By: #### 2 [id number] #### [facility] [address] [place] [address] Eos Absolute 0.2 E9/L Normal 0.0-0.5 [facility] Comment on above: Performed By: #### 2 [id number] #### [facility] [address] [place] [address] Eosinophils/100 WBC (Bld) 2.8 % Normal 0.0-8.0 [facility] Comment on above: Performed By: #### 2 [id number] #### [facility] [address] [place] [address] Erythrocyte distribution width (RBC) [Ratio] 14.7 % High 10.9-14.2 [facility] Comment on above: Performed By: #### 2 [id number] #### [facility] [address] [place] [address] Hematocrit (Bld) [Volume fraction] 40.9 % Normal 34.0-46.0 [facility] Comment on above: Performed By: #### 2 [id number] #### [facility] [address] [place] [address] Hemoglobin (Bld) [Mass/Vol] 14.1 g/dL Normal 12.0-16.0 [facility] Comment on above: Performed By: #### 2 [id number] #### [facility] [address] [place] [address] Lymph Absolute 2.0 E9/L Normal 1.0-4.0 [facility] Comment on above: Performed By: #### 2 [id number] #### [facility] [address] [place] [address] Lymphocytes/100 WBC (Bld) 24.1 % Normal 14.0-50.0 [facility] Comment on above: Performed By: #### 2 [id number] #### [facility] [address] [place] [address] MCH (RBC) [Entitic mass] 30.7 pg Normal 27.0-34.0 [facility] Comment on above: Performed By: #### 2 198106 #### [facility] [address] [place] [address] MCHC (RBC) [Mass/Vol] 34.5 g/dL Normal 31.4-36.0 [facility] Comment on above: Performed By: #### 2 [id number] #### [facility] [address] [place] [address] MCV (RBC) [Entitic vol] 88.8 fL Normal 80.0-100.0 [facility] Comment on above: Performed By: #### 2 315108 #### [facility] [address] [place] [address] [place] Absolute 0.5 E9/L Normal 0.2-1.0 [facility] Comment on above: Performed By: #### 2 624653 #### [facility] [address] [place] [address] Monocytes/100 WBC (Bld) 6.8 % Normal 4.0-14.0 [facility] Comment on above: Performed By: #### 2 079861 #### [facility] [address] [place] [address] Neutro Absolute 5.4 E9/L Normal 2.0-7.[address] [facility] Comment on above: Performed By: #### 2 506409 #### [facility] [address] [place] [address] Neutro Auto 66.0 % Normal 36.0-75.0 [facility] Comment on above: Performed By: #### 2 682120 #### [facility] [address] [place] [address] Platelet 168.0 E9/L Normal 150.0-500.0 [facility] Comment on above: Performed By: #### 2 [id number] #### [facility] [address] [place] [address] Platelet mean volume (Bld) [Entitic vol] 8.0 fL Normal 6.4-10.8 [facility] Comment on above: Performed By: #### 2 144152 #### [facility] [address] [place] [address] RBC 4.6 E12/L Normal 4.3-5.9 [facility] Comment on above: Performed By: #### 2 [id number] #### [facility] [address] [place] [address] WBC 8.1 E9/L Normal 4.0-11.0 [facility] Comment on above: Performed By: #### 2 070445 #### [facility] [address] [place] [address] CHEMISTRYOrdered By: SYSTEM SYSTEM on 12-12-2024 Amphetamines [...] 12-12-2024 Albumin [Mass/Vol] 4.0 g/dL Normal 3.3-5.0 [facility] Comment on above: Performed By: #### 2 [id number] #### [facility] [address] [place] [address] Albumin/Globulin [Mass ratio] 1.4 {ratio} Normal 1.1-2.2 [facility] Comment on above: Performed By: #### 2 876416 #### [facility] [address] [place] [address] Alk Phos 89 Int._Unit/L Normal 21-98 [facility] Comment on above: Performed By: #### 2 [id number] #### [facility] [address] [place] [address] ALT 20 Int._Unit/L Normal 6-46 [facility] Comment on above: Performed By: #### 2 [id number] #### [facility] [address] [place] [address] Anion gap [Moles/Vol] 11 mmol/L Normal 6-16 [facility] Comment on above: Performed By: #### 2 808313 #### [facility] [address] [place] [address] AST 22 Int._Unit/L Normal 5-43 [facility] Comment on above: Performed By: #### 2 697413 #### [facility] [address] [place] [address] Bili Total 0.6 mg/dL Normal 0.0-1.1 [facility] Comment on above: Performed By: #### 2 337276 #### [facility] [address] [place] [address] BUN/Creat Ratio 24 No Units High 10-[address] [facility] Comment on above: Performed By: #### 2 786429 #### [facility] [address] [place] [address] Calcium [Mass/Vol] 9.2 mg/dL Normal 8.9-11.1 [facility] Comment on above: Performed By: #### 2 256408 #### [facility] [address] [place] [address] Chloride [Moles/Vol] 101 mmol/L Normal 101-111 [facility] Comment on above: Performed By: #### 2 989379 #### [facility] [address] [place] [address] CO2 [Moles/Vol] 28 mmol/L Normal 21-[address] [facility] Comment on above: Performed By: #### 2 344388 #### [facility] [address] [place] [address] Creatinine [Mass/Vol] 0.9 mg/dL Normal 0.5-1.3 [facility] Comment on above: Performed By: #### 2 [id number] #### [facility] [address] [place] [address] Globulin (S) [Mass/Vol] 2.9 g/dL Normal 1.4-4.0 [facility] Comment on above: Performed By: #### 2 974998 #### [facility] [address] [place] [address] Glucose [Mass/Vol] 133 mg/dL Normal 55-199 [facility] Comment on above: Performed By: #### 2 333878 #### [facility] [address] [place] [address] Potassium [Moles/Vol] 3.5 mmol/L Normal 3.5-5.3 [facility] Comment on above: Performed By: #### 2 496785 #### [facility] [address] [place] [address] Protein [Mass/Vol] 6.9 g/dL Normal 6.0-7.8 [facility] Comment on above: Performed By: #### 2 597653 #### [facility] [address] [place] [address] Sodium [Moles/Vol] 136 mmol/L Normal 135-145 [facility] Comment on above: Performed By: #### 2 143524 #### [facility] [address] [place] [address] Urea nitrogen [Mass/Vol] 22 mg/dL High 5-21 [facility] Comment on above: Performed By: #### 2 378642 #### [facility] [address] [place] [address] ED Clinical Summaryon 2024 ED Clinical Summary ED Clinical Summary [address] [address] ED Clinical Summary Person Information Name: SHEY OBRIEN/[facility] Age: 74 Years : 1950 Sex: Female Language: Rwandan PCP: LATRELL JCAK MD Marital Status: Single Visit Id: Visit [...] 12/12/2024 17:40:09 12/12/2024 17:40:09 12/12/2024 17:40:09 ADDRESS: [address] [place] [id number] PHYS DOC NOTES: MEDICAL INFORMATION: Prescriptions Given: [...] (at bedtime). fluticasone nasal (Flonase 0.05 mg/inh Hooper) 2 Sprays Nasal Inhalation every day. losartan [...] Instructions: Follow up: DIAGNOSIS: Suicidal ideation Normal [facility] ED Note-Physicianon 12-13-19 ED Note-Physician ED Note-Physician [...] culture. MHP evaluated. Patient be placed at [address] Kim. Assessment/Plan Suicidal ideation [...] a day (at bedtime) Flonase 0.05 mg/inh Hooper, 2 spray(s), Nasal, Daily losartan 25 mg [...] (12/12/24 13:50 (more content not included)... Normal [facility] Comment on above: Result Comment: Elec tronically Signed By: Elmer Kohli DO\.br\Date and Time Signed: 12/12/24 17:26 EDT ED Patient Education Noteon 12-12-2024 ED Patient Education Note ED Patient Education Note Normal [facility] ED Patient Summaryon 025 ED Patient Summary ED Patient Summary [place] [id number] Patient Discharge Instructions Person Information Name: SHEY OBRIEN Age: 74 Years Arrival Date: 12/12/2024 13:24:04 Discharge Diagnosis: Suicidal ideation Primary Care Physician: LATRELL JACK MD Provider Information Primary Provider: Elmer Kohli DO Advanced Attorney General:None The exam and treatment you received in the Emergency Department were for an urgent problem and are not intended as complete care. It is important that you follow up with a doctor, nurse practitioner, or physician???s assistant research scientist for ongoing care. If your symptoms become worse or you do not improve as expected and you are unable to reach your usual health care provider, you should return to the Emergency Department. We are available 24 hours a day. SHYE OBRIEN has been given the following list [...] opioids can be used to help relieve hwvjuqhp-ax-lkzjfj pain and are often prescribed following a [...] be struggling with addiction, tell your health primary care coordinator and ask for guidance or call [facility]???S gamigo Helpline at [phone]-[phone]. u Source: US Department of Health and Human Services/Center for Disease Control & Prevention Gloria (more content not included)... Normal [facility] Ethanolon 12-12-2024 Ethanol Lvl <10 Normal <=11 [facility] Comment on above: Performed By: #### 2 [id number] #### [facility] [address] [place] [address] HEMATOLOGYOrdered By: SYSTEM SYSTEM on 12-12-2024 Basophils/100 [...] 12-12-2024 U Amph Scr Negative Normal NEGATIVE [facility] Comment on above: Result Comment: Nega tive Cutoff: <1000 ng/mL Performed By: #### 2 244010 #### [facility] [address] [place] [address] U Jessica Scr Negative Normal NEGATIVE [facility] Comment on above: Result Comment: Nega tive Cutoff: <200 ng/mL Performed By: #### 2 448131 #### [facility] [address] [place] [address] U Benzodia Scr Negative Normal NEGATIVE [facility] Comment on above: Result Comment: Nega tive Cutoff: <200 ng/mL Performed By: #### 2 768359 #### [facility] [address] [place] [address] U Cannab Scr Negative Normal NEGATIVE [facility] Comment on above: Result Comment: Nega tive Cutoff: <50 ng/mL Performed By: #### 2 546975 #### [facility] [address] [place] [address] U Cocaine Scr Negative Normal NEGATIVE [facility] Comment on above: Result Comment: Nega tive Cutoff: <300 ng/mL Performed By: #### 2 [id number] #### [facility] [address] [facility] [place] [address] U Fentanyl Negative Normal NEGATIVE [facility] Comment on above: Result Comment: Nega tive Cutoff: <5 ng/mL These drug screen results are to be used for medical (i.e., treatment) purposes only. Unconfirmed drug screening results must not be used for non-medical purposes (e.g., employment testing, legal testing). Performed By: #### 2 [id number] #### [facility] [address] [place] [address] U Opiate Scr Negative Normal NEGATIVE [facility] Comment on above: Result Comment: Nega tive Cutoff: <300 ng/mL Performed By: #### 2 [id number] #### [facility] [address] [place] [address] U PCP Scr Negative Normal NEGATIVE [facility] Comment on above: Result Comment: Nega tive Cutoff: <25 ng/mL These drug screen results are to be used for medical (i.e., treatment) purposes only. Unconfirmed drug screening results must not be used for non-medical purposes (e.g., employment testing, legal testing). Performed By: #### 2 [id number] #### [facility] [address] [place] [address] UA with Cult Rflxon 12-13-19 25 Color (U) Light-Yellow Normal Yellow [facility] Comment on above: Result Comment: Micr oscopic readings are only performed on those samples that meet specific criteria set forth by [facility]. Performed By: #### 4 [id number] #### [facility] [address] [place] [address] Glucose (U) [Mass/Vol] Negative Normal Negative [facility] Comment on above: Performed By: #### 4 [id number] #### [facility] [address] [place] [address] Ketones Ql (U) Negative Normal Negative [facility] Comment on above: Performed By: #### 4 [id number] #### [facility] [address] [place] [address] UA Blood Negative Normal Negative [facility] Comment on above: Performed By: #### 4 [id number] #### [facility] [address] [place] [address] UA Bacteria 1+ /HPF Abnormal Trace [facility] Comment on above: Performed By: #### 4 [id number] #### [facility] [address] [place] [address] UA Clarity Clear Normal Clear [facility] Comment on above: Performed By: #### 4 [id number] #### [facility] [address] [place] [address] UA Leuk Est 75 [place]/uL Abnormal Negative [facility] Comment on above: Performed By: #### 4 [id number] #### [facility] [address] [place] [address] UA Mucous Trace Normal Negative [facility] Comment on above: Performed By: #### 4 [id number] #### [facility] [address] [place] [address] UA Nitrite Negative Normal Negative [facility] Comment on above: Performed By: #### 4 [id number] #### [facility] [address] [place] [address] UA pH 5.5 Invalid Interpretation Code 5.0-9.0 [facility] Comment on above: Performed By: #### 4 [id number] #### [facility] [address] [place] [address] UA Protein Negative Normal Negative [facility] Comment on above: Performed By: #### 4 [id number] #### [facility] [address] [place] [address] UA Spec Grav 1.009 Invalid Interpretation Code 1.005-1.030 [facility] Comment on above: Performed By: #### 4 [id number] #### [facility] [address] [place] [address] UA Squam Epithelial 0-2 Invalid Interpretation Code [facility] Comment on above: Performed By: #### 4 [id number] #### [facility] [address] [place] [address] UA Urobilinogen Negative Normal Negative [facility] Comment on above: Performed By: #### 4 [id number] #### [facility] [address] [place] [address] Urobilinogen (U) [Mass/Vol] Negative Normal Negative [facility] Comment on above: Performed By: #### 4 [id number] #### [facility] [address] [place] [address] UA Spec Desc Clean Catch Normal [facility] Comment on above: Performed By: #### 4 [id number] #### [facility] [address] [place] [address] URINALYSISOrdered By: SYSTEM SYSTEM on 12-12-2024 Bacteria Auto Ql (U) 1+ /HPF Invalid Interpretation Code Trace/HPF [facility] UA Auto SS Bilirubin Ql (U) Negative Normal Negativemg/ d L [facility] UA Auto SS Clarity (U) Clear (12/12/24 2:18 PM) Normal Clear [facility] UA Auto SS Color (U) Light-Yellow 3 (12/12/24 2:18 PM) Normal Yellow [facility] UA Auto SS Comment on above: Interpretive Data: M icroscopic readings are only performed on those samples that meet specific criteria set forth by [facility]. Epithelial cells.squamous Auto (Urine sed) [#/Area] [...] Protein Ql (U) Negative Normal Negativemg/d L [facility] UA Auto SS Specific gravity (U) [Rel density] 1.009 *NA* (12/12/24 2:18 PM) Invalid Interpretation Code 1.005 - 1.030 [facility] UA Auto SS Urobilinogen (U) [Mass/Vol] Negative Normal Negativemg/d L [facility] UA Auto SS URINALYSISOrdered By: Elmer Kohli on 12-12-2024 UA Spec Desc Clean Catch (12/12/24 2:18 PM) Normal [facility] UA Auto SS XR HIP LT MIN 2Von [address] [place] [address] XRay Report Signed Patient: SHEY OBRIEN MR#: [id number] : 1950 Acct:[id number] Age/Sex: 74 / F ADM Date: 12/12/24 Loc: RAD Attending Dr: Will Woodson NP Ordering Physician: Will Woodson NP Date of Service: 12/12/24 Procedure(s): XR hip LT min 2V Accession Number(s): [id number] cc: Will Woodson NP; Latrell Jack M.D. [facility] [place] [id number] Patient Name: SHEY OBRIEN MRN: [facility]:[id number] date: 1950 Sex: F Assigned Patient Location: PM Current Patient Location: PM Accession/Order Number: [id number] Exam Date: 12/12/2024 10:32 Report Date: 12/12/2024 [...] Narvaez M.D. 12/12/2024 10:34 AM Dictation Location: [place] [address] Electronically authenticated by: [id number] Y Date: 12/12/2024 10:34 Dictated By: Juliane Narvaez M.D. Signed By: 12/12/24 1037 DD/ 1034 TD/TT: Nuclear Medicine Specialist: [facility] Radiology, Radiologist, MD - 12/12/2024 [place] [address] XRay Report Signed Patient: SHEY OBRIEN MR#: [id number] : 1950 Acct:[id number] Age/Sex: 74 / F ADM Date: 12/12/24 Loc: RAD Attending Dr: Will Woodson NP Ordering Physician: Will Woodson NP Date of Service: 12/12/24 Procedure(s): XR hip LT min 2V Accession Number(s): [id number] cc: Will Woodson NP; Latrell Jack M.D. [address] [address] Patient Name: SHEY OBRIEN MRN: [facility]:[id number] date: 1950 Sex: F Assigned Patient Location: Current Patient Location: Accession/Order Number: [id number] Exam Date: 12/12/2024 10:32 Report Date: 12/12/2024 [...] Narvaez M.D. 12/12/2024 10:34 AM Dictation Location: [place] [address] Electronically authenticated by: [id number] Y Date: 12/12/2024 10:34 Dictated By: Juliane Narvaez M.D. Signed By: 12/12/24 1037 DD/ 1034 TD/TT: Nuclear Medicine Specialist: [facility] Radiology Study observation (narrative) [facility] XR HIP LT MIN 2VOrdered By: Radiologist Radiology on 12-12-2024 [facility] Work Phone: eGFRon 12-12-2024 eGFR 67 mL/min/1.73 m2 Normal >=59 [facility] Comment on above: Performed By: #### 1 [id number] #### [facility] [address] [place] [address] ALL CBC WITH AUTO DIFFon BASOPHILS ABSOLUTE AUTO 0 [facility] Basophils/100 WBC (Bld) 0.4 % 0.2 - 2.0 % [facility] Eosin[facility]/100 WBC (Bld) 3.5 % 0.9 - 7.0 % [facility] Erythrocyte distribution width (RBC) [Ratio] 12.8 % 11.0 - 15.0 % [facility] Hematocrit (Bld) [Volume fraction] 39.2 % 36.0 - 48.0 % [facility] Hemoglobin (Bld) [Mass/Vol] 13.1 g/dL 12.0 - 16.0 g/dL [facility] IMMATURE GRANULOCYTES ABS AUTO 0.09 High [facility] Immature granulocytes/100 WBC (Bld) 1.3 % High 0.0 - 0.5 % [facility] Interpretation and review of laboratory results Abnormal [facility] LYMPHOCYTES ABSOLUTE AUTO 1.2 [facility] Lymphocytes/100 WBC (Bld) 18.3 % Low 20.5 - 60.0 % [facility] MCH (RBC) [Entitic mass] 31.9 pg 26.7 - 34.0 pg [facility] MCHC (RBC) [Mass/Vol] 33.4 g/dL 29.9 - 35.2 g/dL [facility] MCV (RBC) [Entitic vol] 95.4 fL 81.0 - 99.0 fL [facility] MONOCYTES ABSOLUTE AUTO 0.4 [facility] Monocytes/100 WBC (Bld) 6.5 % 1.7 - 12.0 % [facility] NEUTROPHILS ABSOLUTE AUTO 4.7 [facility] Neutrophils/100 WBC (Bld) 70 % 43.0 - 75.0 % [facility] Platelet mean volume (Bld) [Entitic vol] 10.6 fL 9.5 - 13.5 fL [facility] TBH EO # 0.2 [facility] TBH PLT 194 [facility] TBH RBC 4.11 Low [facility] TB WBC 6.8 [facility] CNOVon 08-07-2024 CNOV Office Visit (GENN ) SHEY OBRIEN ([id number]) 1950 F Date Time Provider Department 08/07/24 [...] Katarzyna Snyder APRN.CNP 08/07/2024 3:37 PM Signed [facility] Clinic Date: [...] completed prior to appointment Katarzyna Snyder, MSN, SIGN LANGUAGE INTERPRETER August 07, 2024 Referring Provider: BARI CASTILLO [[id number]] Allergies As of Date: 08/07/2024 (No Known Allergies) Date Reviewed: 08/07/2024 Reviewed by: Olga Lidia Blake MA - Fully Assessed Reason for Visit: Post Op [174] Primary Visit Diagnosis:Postoperativ e visit [Z (more content not included)... Normal [facility] Basic metabolic 2000 panelon 07-26-2024 Anion gap [Moles/Vol] 12 mmol/L Normal 8-15 [facility] Comment on above: Order Comment: Speci men Type: BLOOD SPECIMEN Ordering Facility: [facility] Address: [address] [place] [address] Performed By: #### 3 4528-0, 21023-0 #### [facility] CLIA [id number] [address] [place] [address] [place] Calcium [Mass/Vol] 9.0 mg/dL Normal 8.5-10.2 [facility] Comment on above: Order Comment: Speci men Type: BLOOD SPECIMEN Ordering Facility: [facility] Address: [address] [place] [address] Performed By: #### 3 4528-0, 62360-1 #### [facility] CLIA [id number] [address] [place] [address] [place] Chloride [Moles/Vol] 107 mmol/L Normal 98-107 [facility] Comment on above: Order Comment: Speci men Type: BLOOD SPECIMEN Ordering Facility: [facility] Address: [address] [place] [address] Performed By: #### 3 4528-0, 71268-3 #### [facility] CLIA [id number] [address] [place] [address] [place] CO2 [Moles/Vol] 24 mmol/L Normal 22-30 [facility] Comment on above: Order Comment: Fabiola bliss Type: BLOOD SPECIMEN Ordering Facility: [facility] Address: [address] [place] [address] Performed By: #### 3 4528-0, 58721-2 #### [facility] CLIA [id number] [address] [place] [address] [place] Creatinine [Mass/Vol] 0.92 mg/dL Normal 0.58-0.96 [facility] Comment on above: Order Comment: Fabiola bliss Type: BLOOD SPECIMEN Ordering Facility: [facility] Address: [address] [place] [address] Performed By: #### 3 4528-0, 00374-4 #### [facility] CLIA [id number] [address] [place] [address] [place] Creatinine and Glomerular filtration rate.predicted panel (S/P/Bld) 66 mL/min/1.73m??? Normal >=60 [facility] Comment on above: Order Comment: Fabiola bliss Type: BLOOD SPECIMEN Ordering Facility: [facility] Address: [address] [place] [address] Result Comment: Ira mated Glomerular Filtration Rate [...] accurately reflect actual GFR. Performed By: #### 3 4528-0, 42929-4 #### [facility] CLIA [id number] [address] [place] [address] [place] Glucose [Mass/Vol] 112 mg/dL High 74-99 [facility] Comment on above: Order Comment: Fabiola bliss Type: BLOOD SPECIMEN Ordering Facility: [facility] Address: [address] [place] [address] Result Comment: The [place] Diabetes Association (ADA) provides guidance for cutoff [...] Standards of Medical Care in Diabetes 2016, [place] [employer]. Diabetes Care. 2016.39(Suppl 1). Performed By: #### 3 4528-0, 98023-3 #### [facility] CLIA [id number] [address] [place] [address] [place] Potassium [Moles/Vol] 3.4 mmol/L Low 3.7-5.1 [facility] Comment on above: Order Comment: Speci men Type: BLOOD SPECIMEN Ordering Facility: [facility] Address: [address] [place] [address] Performed By: #### 3 4528-0, 56313-6 #### [facility] CLIA [id number] [address] [place] [address] [place] Sodium [Moles/Vol] 143 mmol/L Normal 136-144 [facility] Comment on above: Order Comment: Speci men Type: BLOOD SPECIMEN Ordering Facility: [facility] Address: [address] [place] [address] Performed By: #### 3 4528-0, 26607-4 #### [facility] CLIA [id number] [address] [place] [address] [place] Urea nitrogen [Mass/Vol] 10 mg/dL Normal 7-21 [facility] Comment on above: Order Comment: Speci men Type: BLOOD SPECIMEN Ordering Facility: [facility] Address: [address] [place] [address] Performed By: #### 3 4528-0, 65803-4 #### [facility] CLIA [id number] [address] [place] [address] [place] CASE MANAGEMon 07-26-2024 CASE MANAGEM HNO ID: [id number] Author: KRISTIE DIAZ, ? Service: ? Author Type: ? Type: Care Mgt Progress Note Filed: 07/26/2024 11:58 Note Text: CARE MANAGEMENT PROGRESS NOTE SERVICE DATE: 07/26/2024 SERVICE TIME: 11:57 AM LOS: 2 days IMM Follow Up Copy Given: Yes Copy given to:: Patient Method: In Person SIGNATURE: Kristie Diaz CMA PATIENT NAME: Shey Obrien DATE: July 26, 2024 TIME: 11:57 AM Normal [facility] CBC W Auto Differential pane l (Bld)on 07-26-2024 Basophils (Bld) [#/Vol] 10*3/uL Normal <0.11 [facility] Comment on above: Order Comment: Speci men Type: BLOOD SPECIMEN Ordering Facility: [facility] Address: [address] [place] [address] Performed By: #### 2 4321-2, HSTNT, , 2776-07 #### [facility] CLIA [id number] [address] [place] [address] [place] Basophils/100 WBC (Bld) 0.3 % Normal [facility] Comment on above: Order Comment: Speci men Type: BLOOD SPECIMEN Ordering Facility: [facility] Address: [address] [place] [address] Performed By: #### 2 4321-2, HSTNT, , 2776-07 #### [facility] CLIA [id number] [address] [place] [address] [place] Differential cell count method Nom (Bld) Auto Normal [facility] Comment on above: Order Comment: Speci men Type: BLOOD SPECIMEN Ordering Facility: [facility] Address: [address] [place] [address] Performed By: #### 2 4321-2, HSTNT, , 2776-07 #### [facility] CLIA [id number] [address] [place] [address] [place] Eosinophils (Bld) [#/Vol] 0.08 10*3/uL Normal <0.46 [facility] Comment on above: Order Comment: Speci men Type: BLOOD SPECIMEN Ordering Facility: [facility] Address: [address] [place] [address] Performed By: #### 2 4321-2, HSTNT, , 2776-07 #### [facility] CLIA [id number] [address] [place] [address] [place] Eosinophils/100 WBC (Bld) 1.3 % Normal [facility] Comment on above: Order Comment: Speci men Type: BLOOD SPECIMEN Ordering Facility: [facility] Address: [address] [place] [address] Performed By: #### 2 4321-2, HSTNT, , 2776-07 #### [facility] CLIA [id number] [address] [place] [address] [place] Erythrocyte distribution width (RBC) [Ratio] 13.9 % Normal 11.5-15.0 [facility] Comment on above: Order Comment: Speci men Type: BLOOD SPECIMEN Ordering Facility: [facility] Address: [address] [place] [address] Performed By: #### 2 4321-2, HSTNT, , 2776-07 #### [facility] CLIA [id number] [address] [place] [address] [place] Hematocrit (Bld) [Volume fraction] 35.1 % Low 36.0-46.0 [facility] Comment on above: Order Comment: Speci men Type: BLOOD SPECIMEN Ordering Facility: [facility] Address: [address] [place] [address] Performed By: #### 2 4321-2, HSTNT, , 2776-07 #### [facility] CLIA [id number] [address] [place] [address] [place] Hemoglobin (Bld) [Mass/Vol] 12.2 g/dL Normal 11.5-15.5 [facility] Comment on above: Order Comment: Speci men Type: BLOOD SPECIMEN Ordering Facility: [facility] Address: [address] [place] [address] Performed By: #### 2 4321-2, HSTNT, , 2776-07 #### [facility] CLIA [id number] [address] [place] [address] [place] Immature granulocytes (Bld) [#/Vol] 0.04 10*3/uL Normal <0.10 [facility] Comment on above: Order Comment: Speci men Type: BLOOD SPECIMEN Ordering Facility: [facility] Address: [address] [place] [address] Performed By: #### 2 4321-2, HSTNT, , 2776-07 #### [facility] CLIA [id number] [address] [place] [address] [place] Immature granulocytes/100 WBC (Bld) 0.7 % Normal [facility] Comment on above: Order Comment: Speci men Type: BLOOD SPECIMEN Ordering Facility: [facility] Address: [address] [place] [address] Performed By: #### 2 4321-2, HSTNT, , 2776-07 #### [facility] CLIA [id number] [address] [place] [address] [place] Lymphocytes (Bld) [#/Vol] 1.90 10*3/uL Normal 1.00-4.00 [facility] Comment on above: Order Comment: Speci men Type: BLOOD SPECIMEN Ordering Facility: [facility] Address: [address] [place] [address] Performed By: #### 2 4321-2, HSTNT, , 2776-07 #### [facility] CLIA [id number] [address] [place] [address] [place] Lymphocytes/100 WBC (Bld) 30.9 % Normal [facility] Comment on above: Order Comment: Speci men Type: BLOOD SPECIMEN Ordering Facility: [facility] Address: [address] [place] [address] Performed By: #### 2 4321-2, HSTNT, , 2776-07 #### [facility] CLIA [id number] [address] [place] [address] [place] MCH (RBC) [Entitic mass] 32.9 pg Normal 26.0-34.0 [facility] Comment on above: Order Comment: Speci men Type: BLOOD SPECIMEN Ordering Facility: [facility] Address: [address] [place] [address] Performed By: #### 2 4321-2, HSTNT, , 2776-07 #### [facility] CLIA [id number] [address] [place] [address] [place] MCHC (RBC) [Mass/Vol] 34.8 g/dL Normal 30.5-36.0 [facility] Comment on above: Order Comment: Speci men Type: BLOOD SPECIMEN Ordering Facility: [facility] Address: [address] [place] [address] Performed By: #### 2 4321-2, HSTNT, , 2776-07 #### [facility] CLIA [id number] [address] [place], [place] [address] [place] MCV (RBC) [Entitic vol] 94.6 fL Normal 80.0-100.0 [facility] Comment on above: Order Comment: Speci men Type: BLOOD SPECIMEN Ordering Facility: [facility] Address: [address] [place] [address] Performed By: #### 2 4321-2, HSTNT, , 2776-07 #### [facility] CLIA [id number] [address] [place] [address] [place] Monocytes (Bld) [#/Vol] 0.46 10*3/uL Normal <0.87 [facility] Comment on above: Order Comment: Speci men Type: BLOOD SPECIMEN Ordering Facility: [facility] Address: [address] [place] [address] Performed By: #### 2 4321-2, HSTNT, , 2776-07 #### [facility] CLIA [id number] [address] [place] [address] [place] Monocytes/100 WBC (Bld) 7.5 % Normal [facility] Comment on above: Order Comment: Speci men Type: BLOOD SPECIMEN Ordering Facility: [facility] Address: [address] [place] [address] Performed By: #### 2 4321-2, HSTNT, , 2776-07 #### [facility] CLIA [id number] [address] [place] [address] [place] Neutrophils (Bld) [#/Vol] 3.64 10*3/uL Normal 1.45-7.50 [facility] Comment on above: Order Comment: Speci men Type: BLOOD SPECIMEN Ordering Facility: [facility] Address: [address] [place] [address] Performed By: #### 2 4321-2, HSTNT, , 2776-07 #### [facility] CLIA [id number] [address] [place] [address] [place] Neutrophils/100 WBC (Bld) 59.3 % Normal [facility] Comment on above: Order Comment: Speci men Type: BLOOD SPECIMEN Ordering Facility: [facility] Address: [address] [place] [address] Performed By: #### 2 4321-2, HSTNT, , 2776-07 #### [facility] CLIA [id number] [address] [place] [address] [place] Nucleated RBC (Bld) [#/Vol] 10*3/uL Normal <0.01 [facility] Comment on above: Order Comment: Speci men Type: BLOOD SPECIMEN Ordering Facility: [facility] Address: [address] [place] [address] Performed By: #### 2 4321-2, HSTNT, , 2776-07 #### [facility] CLIA [id number] [address] [place] [address] [place] Nucleated RBC/100 WBC (Bld) [Ratio] 0.0 /100 WBC Normal [facility] Comment on above: Order Comment: Speci men Type: BLOOD SPECIMEN Ordering Facility: [facility] Address: [address] [place] [address] Performed By: #### 2 4321-2, HSTNT, , 2776-07 #### [facility] CLIA [id number] [address] [place] [address] [place] Platelet mean volume (Bld) [Entitic vol] 9.9 fL Normal 9.0-12.7 [facility] Comment on above: Order Comment: Speci men Type: BLOOD SPECIMEN Ordering Facility: [facility] Address: [address] [place] [address] Performed By: #### 2 4321-2, HSTNT, , 2776-07 #### [facility] CLIA [id number] [address] [place] [address] [place] Platelets (Bld) [#/Vol] 143 10*3/uL Low 150-400 [facility] Comment on above: Order Comment: Speci men Type: BLOOD SPECIMEN Ordering Facility: [facility] Address: [address] [place] [address] Performed By: #### 2 4321-2, HSTNT, 13401-0, 2777-1 #### [facility] CLIA [id number] [address] [place] [address] [place] RBC (Bld) [#/Vol] 3.71 10*6/uL Low 3.90-5.20 [facility] Comment on above: Order Comment: Speci men Type: BLOOD SPECIMEN Ordering Facility: [facility] Address: [address] [place] [address] Performed By: #### 2 4321-2, HSTNT, 87620-5, 7-1 #### [facility] CLIA [id number] [address] [place] [address] [place] WBC (Bld) [#/Vol] 6.14 10*3/uL Normal 3.70-11.00 [facility] Comment on above: Order Comment: Speci men Type: BLOOD SPECIMEN Ordering Facility: [facility] Address: [address] [place] [address] Performed By: #### 2 4321-2, HSTNT, 02781-2, 7-1 #### [facility] CLIA [id number] [address] [place] [address] [place] CNCOon 07-26-2024 CNCO Letter Text Normal [facility] CNDSon 07-26-2024 CNDS HNO ID: [id number] Author: KASSY VERDE APRN.SIGN LANGUAGE INTERPRETER Service: General Surgery Author Type: Nurse Practitioner [...] in the PACU and transferred to the [facility] for the remainder of her postoperative care. [...] Commonly know (more content not included)... Normal [facility] Magnesium SerPl-mCncon 07-26 Magnesium [Mass/Vol] 2.0 mg/dL Normal 1.7-2.3 [facility] Comment on above: Order Comment: Speci men Type: BLOOD SPECIMEN Ordering Facility: [facility] Address: [address] [place] [address] Performed By: #### 3 4528-0, 29828-1 #### [facility] CLIA [id number] [address] [place] [address] [place] PT EDon 07-26-2024 PT ED HNO ID: [id number] Author: NOREEN RODNEY DTR Service: Nutrition Therapy Author Type: Executive Administrative Assistant Type: Patient Education Filed: 07/26/2024 14:04 [...] 26, 2024 TIME: 2:04 PM PAGER: Normal [facility] Phosphate SerPl-mCncon 07-26 Phosphate [Mass/Vol] 2.5 mg/dL Low 2.7-4.8 [facility] Comment on above: Order Comment: Speci men Type: BLOOD SPECIMEN Ordering Facility: [facility] Address: [address] [place] [address] Performed By: #### 3 4528-0, 55839-7 #### [facility] CLIA [id number] [address] [place] [address] [place] HIGH SENSITIVITY TROPONIN To n 07-25-2024 Troponin T.cardiac High sensitivity method [Mass/Vol] 12 ng/L High <12 [facility] Comment on above: Order Comment: Fabiola bliss Type: BLOOD SPECIMEN Ordering Facility: [facility] Address: [address] [place] [address] Performed By: #### 3 4528-0, 65740-7 #### [facility] CLIA [id number] [address] [place] [address] [place] XR UPPER GI [...] (min:sec). Air kerma: 38.9 mGy. RESULT: Preliminary insole cementer: Gastric distention. No dilated bowel in the [...] ESOPHAGEAL TRANSIT, LIKELY RELATED TO POSTOPERATIVE EDEMA. Nuclear Medicine Specialist: KODY Transcribe Date/Time: Jul 25 2024 10:06A Dictated by : NAHID PACHECO MD This examination was interpreted and the report reviewed and electronically signed by: MARTHA CATALAN MD on Jul 25 2024 10:13AM EST [id number] Normal [facility] ANES POSTPROC EVALon 025 ANES POSTPROC EVAL HNO ID: [id number] Author: FLOR SNOW MD Service: ? Author Type: Physician Type: Anesthesia Postprocedure Evaluation Filed: 07/24/2024 15:38 Note Text: POST ANESTHESIA EVALUATION NOTE : 1950 Procedure Summary Date: 07/24/24 [address] Anesthesia Start: 1055 Anesthesia Stop: 1430 Procedure: LAPAROSCOPIC RPR PARAESOPHAGEAL HERNIA W/O FUNDOPLASTY W/ MESH (Abdomen) Diagnosis: Preoperative examination Paraesophageal hernia (Preoperative examination [Z01.818]) (Paraesophageal hernia [K44.9]) Surgeons: Xavier Boyd MD Responsible Provider: Flor nSow MD Anesthesia Type: general ASA Status: 4 [...] July 24, 2024 TIME: 3:38 PM CSN: [id number] Normal [facility] ANES PRE-OPon 07-24-2024 ANES PRE-OP HNO ID: [id number] Author: FLOR SNOW MD Service: ? Author [...] July 24, 2024 TIME: 9:15 AM CSN: [id number] Normal [facility] BRIEF OP NOTon 07-24-2024 BRIEF OP NOT HNO ID: [id number] Author: YAN MOSER, ? Service: General Surgery Author Type: Physician Type: Brief Op Note Filed: 07/24/2024 14:16 Note Text: BRIEF OPERATIVE / PROCEDURE NOTE LOG ID: [id number] SURGERY/PROCEDURE DATE: 07/24/2024 INCISION/PROCEDURE START TIME: 11:37 AM INCISION CLOSE/PROCEDURE END TIME: 2:12 PM SURGEON(S)/PROCEDURALI ST(S) AND SENIOR POLICY ADVISOR(S): Surgeons and Role: * Xavier Boyd MD [...] 24, 2024 TIME: 2:15 PM PAGER/CONTACT #: [phone] Normal [facility] Basic metabolic 2000 panelon 07-24-2024 Anion gap [Moles/Vol] 15 mmol/L Normal 8-15 [facility] Comment on above: Order Comment: Speci men Type: BLOOD SPECIMEN Ordering Facility: [facility] Address: [address] [place], [place] [address] Performed By: #### 2 4321-2, HSTNT, 45405-4, 2776- #### [facility] CLIA [id number] [address] [place] [address] [place] Calcium [Mass/Vol] 9.3 mg/dL Normal 8.5-10.2 [facility] Comment on above: Order Comment: Speci men Type: BLOOD SPECIMEN Ordering Facility: [facility] Address: [address] [place] [address] Performed By: #### 2 4321-2, HSTNT, , 2776- #### [facility] CLIA [id number] [address] [place] [address] [place] Chloride [Moles/Vol] 105 mmol/L Normal 98-107 [facility] Comment on above: Order Comment: Speci men Type: BLOOD SPECIMEN Ordering Facility: [facility] Address: [address] [place] [address] Performed By: #### 2 4321-2, HSTNT, , 2776- #### [facility] CLIA [id number] [address] [place] [address] [place] CO2 [Moles/Vol] 21 mmol/L Low 22-30 [facility] Comment on above: Order Comment: Speci men Type: BLOOD SPECIMEN Ordering Facility: [facility] Address: [address] [place] [address] Performed By: #### 2 4321-2, HSTNT, , 2776- #### [facility] CLIA [id number] [address] [place] [address] [place] Creatinine [Mass/Vol] 0.83 mg/dL Normal 0.58-0.96 [facility] Comment on above: Order Comment: Speci men Type: BLOOD SPECIMEN Ordering Facility: [facility] Address: [address] [place], [place] [address] Performed By: #### 2 4321-2, HSTNT, 42223-7, 2777-1 #### [facility] CLIA [id number] [address] [place] [address] [place] Creatinine and Glomerular filtration rate.predicted panel (S/P/Bld) 75 mL/min/1.73m??? Normal >=60 [facility] Comment on above: Order Comment: Fabiola bliss Type: BLOOD SPECIMEN Ordering Facility: [facility] Address: [address] [place] [address] Result Comment: Ira mated Glomerular Filtration Rate [...] GFR. Performed By: #### 2 4321-2, HSTNT, 60183-7, 2777- #### [facility] CLIA [id number] [address] [place] [address] [place] Glucose [Mass/Vol] 171 mg/dL High 74-99 [facility] Comment on above: Order Comment: Fabiola bliss Type: BLOOD SPECIMEN Ordering Facility: [facility] Address: [address] [place] [address] Result Comment: The [place] [employer] (ADA) provides guidance for cutoff [...] Standards of Medical Care in Diabetes 2016, [place] [employer]. Diabetes Care. 2016.39(Suppl 1). Performed By: #### 2 4321-2, HSTNT, 56771-0, 2776- #### [facility] CLIA [id number] [address] [place] [address] [place] Potassium [Moles/Vol] 4.0 mmol/L Normal 3.7-5.1 [facility] Comment on above: Order Comment: Speci men Type: BLOOD SPECIMEN Ordering Facility: [facility] Address: [address] [place] [address] Performed By: #### 2 4321-2, HSTNT, , 2776-07 #### [facility] CLIA [id number] [address] [place] [address] [place] Sodium [Moles/Vol] 141 mmol/L Normal 136-144 [facility] Comment on above: Order Comment: Speci men Type: BLOOD SPECIMEN Ordering Facility: [facility] Address: [address] [place] [address] Performed By: #### 2 4321-2, HSTNT, , 2776-07 #### [facility] CLIA [id number] [address] [place] [address] [place] Urea nitrogen [Mass/Vol] 10 mg/dL Normal 7-21 [facility] Comment on above: Order Comment: Speci men Type: BLOOD SPECIMEN Ordering Facility: [facility] Address: [address] [place] [address] Performed By: #### 2 4321-2, HSTNT, , 2776-07 #### [facility] CLIA [id number] [address] [place] [address] [place] CBC W Auto Differential pane l (Bld)on 07-24-2024 Basophils (Bld) [#/Vol] 10*3/uL Normal <0.11 [facility] Comment on above: Order Comment: Speci men Type: BLOOD SPECIMEN Ordering Facility: [facility] Address: [address] [place] [address] Performed By: #### 3 4528-0, 95256-8 #### [facility] CLIA [id number] [address] [place] [address] [place] Basophils/100 WBC (Bld) 0.3 % Normal [facility] Comment on above: Order Comment: Speci men Type: BLOOD SPECIMEN Ordering Facility: [facility] Address: [address] [place] [address] Performed By: #### 3 4528-0, 60242-5 #### [facility] CLIA [id number] [address] [place] [address] [place] Differential cell count method Nom (Bld) Auto Normal [facility] Comment on above: Order Comment: Speci men Type: BLOOD SPECIMEN Ordering Facility: [facility] Address: [address] [place] [address] Performed By: #### 3 4528-0, 07217-3 #### [facility] CLIA [id number] [address] [place] [address] [place] Eosinophils (Bld) [#/Vol] 10*3/uL Normal <0.46 [facility] Comment on above: Order Comment: Speci men Type: BLOOD SPECIMEN Ordering Facility: [facility] Address: [address] [place] [address] Performed By: #### 3 4528-0, 03635-8 #### [facility] CLIA [id number] [address] [place] [address] [place] Eosinophils/100 WBC (Bld) 0.0 % Normal [facility] Comment on above: Order Comment: Speci men Type: BLOOD SPECIMEN Ordering Facility: [facility] Address: [address] [place] [address] Performed By: #### 3 4528-0, 49569-2 #### [facility] CLIA [id number] [address] [place] [address] [place] Erythrocyte distribution width (RBC) [Ratio] 13.9 % Normal 11.5-15.0 [facility] Comment on above: Order Comment: Speci men Type: BLOOD SPECIMEN Ordering Facility: [facility] Address: [address] [place] [address] Performed By: #### 3 4528-0, 65395-1 #### [facility] CLIA [id number] [address] [place] [address] [place] Hematocrit (Bld) [Volume fraction] 38.8 % Normal 36.0-46.0 [facility] Comment on above: Order Comment: Speci men Type: BLOOD SPECIMEN Ordering Facility: [facility] Address: [address] [place] [address] Performed By: #### 3 4528-0, 07611-7 #### [facility] CLIA [id number] [address] [place] [address] [place] Hemoglobin (Bld) [Mass/Vol] 13.4 g/dL Normal 11.5-15.5 [facility] Comment on above: Order Comment: Speci men Type: BLOOD SPECIMEN Ordering Facility: [facility] Address: [address] [place] [address] Performed By: #### 3 4528-0, 70619-9 #### [facility] CLIA [id number] [address] [place] [address] [place] Immature granulocytes (Bld) [#/Vol] 10*3/uL Normal <0.10 [facility] Comment on above: Order Comment: Speci men Type: BLOOD SPECIMEN Ordering Facility: [facility] Address: [address] [place] [address] Performed By: #### 3 4528-0, 39154-6 #### [facility] CLIA [id number] [address] [place] [address] [place] Immature granulocytes/100 WBC (Bld) 0.3 % Normal [facility] Comment on above: Order Comment: Speci men Type: BLOOD SPECIMEN Ordering Facility: [facility] Address: [address] [place] [address] Performed By: #### 3 4528-0, 25718-6 #### [facility] CLIA [id number] [address] [place] [address] [place] Lymphocytes (Bld) [#/Vol] 0.48 10*3/uL Low 1.00-4.00 [facility] Comment on above: Order Comment: Speci men Type: BLOOD SPECIMEN Ordering Facility: [facility] Address: [address] [place] [address] Performed By: #### 3 4528-0, 95362-7 #### [facility] CLIA [id number] [address] [place] [address] [place] Lymphocytes/100 WBC (Bld) 6.7 % Normal [facility] Comment on above: Order Comment: Speci men Type: BLOOD SPECIMEN Ordering Facility: [facility] Address: [address] [place] [address] Performed By: #### 3 4528-0, 27045-2 #### [facility] CLIA [id number] [address] [place] [address] [place] MCH (RBC) [Entitic mass] 32.5 pg Normal 26.0-34.0 [facility] Comment on above: Order Comment: Speci men Type: BLOOD SPECIMEN Ordering Facility: [facility] Address: [address] [place] [address] Performed By: #### 3 4528-0, 56480-3 #### [facility] CLIA [id number] [address] [place] [address] [place] MCHC (RBC) [Mass/Vol] 34.5 g/dL Normal 30.5-36.0 [facility] Comment on above: Order Comment: Speci men Type: BLOOD SPECIMEN Ordering Facility: [facility] Address: [address] [place] [address] Performed By: #### 3 4528-0, 93738-5 #### [facility] CLIA [id number] [address] [place] [address] [place] MCV (RBC) [Entitic vol] 94.2 fL Normal 80.0-100.0 [facility] Comment on above: Order Comment: Speci men Type: BLOOD SPECIMEN Ordering Facility: [facility] Address: [address] [place] [address] Performed By: #### 3 4528-0, 99078-1 #### [facility] CLIA [id number] [address] [place] [address] [place] Monocytes (Bld) [#/Vol] 0.23 10*3/uL Normal <0.87 [facility] Comment on above: Order Comment: Speci men Type: BLOOD SPECIMEN Ordering Facility: [facility] Address: [address] [place] [address] Performed By: #### 3 4528-0, 51952-5 #### [facility] CLIA [id number] [address] [place] [address] [place] Monocytes/100 WBC (Bld) 3.2 % Normal [facility] Comment on above: Order Comment: Speci men Type: BLOOD SPECIMEN Ordering Facility: [facility] Address: [address] [place] [address] Performed By: #### 3 4528-0, 37328-9 #### [facility] CLIA [id number] [address] [place] [address] [place] Neutrophils (Bld) [#/Vol] 6.43 10*3/uL Normal 1.45-7.50 [facility] Comment on above: Order Comment: Speci men Type: BLOOD SPECIMEN Ordering Facility: [facility] Address: [address] [place] [address] Performed By: #### 3 4528-0, 72230-4 #### [facility] CLIA [id number] [address] [place] [address] [place] Neutrophils/100 WBC (Bld) 89.5 % Normal [facility] Comment on above: Order Comment: Speci men Type: BLOOD SPECIMEN Ordering Facility: [facility] Address: [address] [place] [address] Performed By: #### 3 4528-0, 46310-6 #### [facility] CLIA [id number] [address] [place] [address] [place] Nucleated RBC (Bld) [#/Vol] 10*3/uL Normal <0.01 [facility] Comment on above: Order Comment: Speci men Type: BLOOD SPECIMEN Ordering Facility: [facility] Address: [address] [place] [address] Performed By: #### 3 4528-0, 99718-4 #### [facility] CLIA [id number] [address] [place] [address] [place] Nucleated RBC/100 WBC (Bld) [Ratio] 0.0 /100 WBC Normal [facility] Comment on above: Order Comment: Speci men Type: BLOOD SPECIMEN Ordering Facility: [facility] Address: [address] [place] [address] Performed By: #### 3 4528-0, 59843-1 #### [facility] CLIA [id number] [address] [place] [address] [place] Platelet mean volume (Bld) [Entitic vol] 10.0 fL Normal 9.0-12.7 [facility] Comment on above: Order Comment: Speci men Type: BLOOD SPECIMEN Ordering Facility: [facility] Address: [address] [place] [address] Performed By: #### 3 4528-0, 05102-1 #### [facility] CLIA [id number] [address] [place] [address] [place] Platelets (Bld) [#/Vol] 144 10*3/uL Low 150-400 [facility] Comment on above: Order Comment: Speci men Type: BLOOD SPECIMEN Ordering Facility: [facility] Address: [address] [place] [address] Performed By: #### 3 4528-0, 83449-4 #### [facility] CLIA [id number] [address] [place] [address] [place] RBC (Bld) [#/Vol] 4.12 10*6/uL Normal 3.90-5.20 [facility] Comment on above: Order Comment: Speci men Type: BLOOD SPECIMEN Ordering Facility: [facility] Address: [address] [place] [address] Performed By: #### 3 4528-0, 03826-6 #### [facility] CLIA [id number] [address] [place] [address] [place] WBC (Bld) [#/Vol] 7.18 10*3/uL Normal 3.70-11.00 [facility] Comment on above: Order Comment: Speci men Type: BLOOD SPECIMEN Ordering Facility: [facility] Address: [address] [place] [address] Performed By: #### 3 4528-0, 70686-7 #### [facility] CLIA [id number] [address] [place] [address] [place] HIGH SENSITIVITY TROPONIN To n 07-24-2024 Troponin T.cardiac High sensitivity method [Mass/Vol] 8 ng/L Normal <12 [facility] Comment on above: Order Comment: Speci men Type: BLOOD SPECIMEN Ordering Facility: [facility] Address: [address] [place] [address] Performed By: #### 2 4321-2, HSTNT, 28329-1, 2777-1 #### [facility] CLIA [id number] [address] [place] [address] [place] Magnesium SerPl-mCncon 07-24 Magnesium [Mass/Vol] 1.7 mg/dL Normal 1.7-2.3 [facility] Comment on above: Order Comment: Speci men Type: BLOOD SPECIMEN Ordering Facility: [facility] Address: [address] [place] [address] Performed By: #### 2 4321-2, HSTNT, 92481-6, 2777-1 #### [facility] CLIA [id number] [address] [place] [address] [place] OPERATIVE NOon 07-24-2024 OPERATIVE NO HNO ID: [id number] Author: XAVIER BOYD MD Service: General Surgery Author Type: Physician Type: Operative Report Filed: 07/24/2024 14:31 Note Text: OPERATIVE/PROCEDURE REPORT LOG ID: [id number] SURGERY/PROCEDURE DATE: 07/24/2024 INCISION/PROCEDURE START TIME: 11:37 AM INCISION CLOSE/PROCEDURE END TIME: 2:12 PM SURGEON(S)/PROCEDURALI ST(S) AND SENIOR POLICY ADVISOR(S): Surgeons and Role: * Xavier Boyd MD [...] left and right subcostal regions. An assistant research scientist 5 mm trocar was placed in the left lower abdomen. A 5 mm Sheila-Ari Mimi Flex liver retractor was placed through [...] to assist with this case. The assistant research scientist performed retraction and assisted with exposure. PRE-OP/PRE-PROCEDURE DIAGNOSIS: Type III paraesophageal hernia, symptomatic POST-OP/POST-PROCEDURE DIAGNOSIS: Same as Preop ESTIMATED BLOOD LOSS: 30 mls SPECIMENS: None IMPLANTABLE DEVICES: NONE DRAINS: None COMPLICATIONS: None CLOSURE TECHNIQUE: Primary PARTICIPATION IN SURGERY/PROCEDURE: I/primary surgeon/proceduralist performed the procedure with assistance. SIGNATURE: Xavier Boyd MD PATIENT NAME: Shey Obrien DATE: July 24, 2024 TIME: 2:27 PM Normal [facility] Phosphate SerPl-mCncon 07-24 Phosphate [Mass/Vol] 3.6 mg/dL Normal 2.7-4.8 [facility] Comment on above: Order Comment: Speci men Type: BLOOD SPECIMEN Ordering Facility: [facility] Address: [address] [place] [address] Performed By: #### 2 4321-2, HSTNT, 46550-7, 2777-1 #### [facility] CLIA [id number] [address] [place] [address] [place] CBC W Auto Differential pane l (Bld)on 07-23-2024 Basophils (Bld) [#/Vol] 0.04 10*3/uL Normal <0.11 [facility] Comment on above: Order Comment: Speci men Type: BLOOD SPECIMEN Ordering Facility: [facility] Address: [address] [place] [address] Performed By: #### 3 4528-0, 16894-0 #### [facility] CLIA [id number] [address] [place] [address] [place] Basophils/100 WBC (Bld) 0.8 % Normal [facility] Comment on above: Order Comment: Speci men Type: BLOOD SPECIMEN Ordering Facility: [facility] Address: [address] [place] [address] Performed By: #### 3 4528-0, 37400-2 #### [facility] CLIA [id number] [address] [place] [address] [place] Differential cell count method Nom (Bld) Auto Normal [facility] Comment on above: Order Comment: Speci men Type: BLOOD SPECIMEN Ordering Facility: [facility] Address: [address] [place] [address] Performed By: #### 3 4528-0, 85847-1 #### [facility] CLIA [id number] [address] [place] [address] [place] Eosinophils (Bld) [#/Vol] 0.18 10*3/uL Normal <0.46 [facility] Comment on above: Order Comment: Speci men Type: BLOOD SPECIMEN Ordering Facility: [facility] Address: [address] [place] [address] Performed By: #### 3 4528-0, 21657-0 #### [facility] CLIA [id number] [address] [place] [address] [place] Eosinophils/100 WBC (Bld) 3.7 % Normal [facility] Comment on above: Order Comment: Speci men Type: BLOOD SPECIMEN Ordering Facility: [facility] Address: [address] [place] [address] Performed By: #### 3 4528-0, 12339-8 #### [facility] CLIA [id number] [address] [place] [address] [place] Erythrocyte distribution width (RBC) [Ratio] 13.9 % Normal 11.5-15.0 [facility] Comment on above: Order Comment: Speci men Type: BLOOD SPECIMEN Ordering Facility: [facility] Address: [address] [place] [address] Performed By: #### 3 4528-0, 40139-9 #### [facility] CLIA [id number] [address] [place] [address] [place] Hematocrit (Bld) [Volume fraction] 39.0 % Normal 36.0-46.0 [facility] Comment on above: Order Comment: Speci men Type: BLOOD SPECIMEN Ordering Facility: [facility] Address: [address] [place] [address] Performed By: #### 3 4528-0, 64464-5 #### [facility] CLIA [id number] [address] [place] [address] [place] Hemoglobin (Bld) [Mass/Vol] 13.4 g/dL Normal 11.5-15.5 [facility] Comment on above: Order Comment: Speci men Type: BLOOD SPECIMEN Ordering Facility: [facility] Address: [address] [place] [address] Performed By: #### 3 4528-0, 29999-0 #### [facility] CLIA [id number] [address] [place] [address] [place] Immature granulocytes (Bld) [#/Vol] 10*3/uL Normal <0.10 [facility] Comment on above: Order Comment: Speci men Type: BLOOD SPECIMEN Ordering Facility: [facility] Address: [address] [place] [address] Performed By: #### 3 4528-0, 72113-1 #### [facility] CLIA [id number] [address] [place] [address] [place] Immature granulocytes/100 WBC (Bld) 0.4 % Normal [facility] Comment on above: Order Comment: Speci men Type: BLOOD SPECIMEN Ordering Facility: [facility] Address: [address] [place] [address] Performed By: #### 3 4528-0, 35462-1 #### [facility] CLIA [id number] [address] [place] [address] [place] Lymphocytes (Bld) [#/Vol] 2.00 10*3/uL Normal 1.00-4.00 [facility] Comment on above: Order Comment: Speci men Type: BLOOD SPECIMEN Ordering Facility: [facility] Address: [address] [place] [address] Performed By: #### 3 4528-0, 01512-0 #### [facility] CLIA [id number] [address] [place] [address] [place] Lymphocytes/100 WBC (Bld) 41.3 % Normal [facility] Comment on above: Order Comment: Speci men Type: BLOOD SPECIMEN Ordering Facility: [facility] Address: [address] [place] [address] Performed By: #### 3 4528-0, 05362-4 #### [facility] CLIA [id number] [address] [place] [address] [place] MCH (RBC) [Entitic mass] 32.5 pg Normal 26.0-34.0 [facility] Comment on above: Order Comment: Speci men Type: BLOOD SPECIMEN Ordering Facility: [facility] Address: [address] [place] [address] Performed By: #### 3 4528-0, 29029-6 #### [facility] CLIA [id number] [address] [place] [address] [place] MCHC (RBC) [Mass/Vol] 34.4 g/dL Normal 30.5-36.0 [facility] Comment on above: Order Comment: Speci men Type: BLOOD SPECIMEN Ordering Facility: [facility] Address: [address] [place] [address] Performed By: #### 3 4528-0, 65051-8 #### [facility] CLIA [id number] [address] [place] [address] [place] MCV (RBC) [Entitic vol] 94.7 fL Normal 80.0-100.0 [facility] Comment on above: Order Comment: Speci men Type: BLOOD SPECIMEN Ordering Facility: [facility] Address: [address] [place] [address] Performed By: #### 3 4528-0, 28555-5 #### [facility] CLIA [id number] [address] [place] [address] [place] Monocytes (Bld) [#/Vol] 0.30 10*3/uL Normal <0.87 [facility] Comment on above: Order Comment: Speci men Type: BLOOD SPECIMEN Ordering Facility: [facility] Address: [address] [place] [address] Performed By: #### 3 4528-0, 59525-1 #### [facility] CLIA [id number] [address] [place] [address] [place] Monocytes/100 WBC (Bld) 6.2 % Normal [facility] Comment on above: Order Comment: Speci men Type: BLOOD SPECIMEN Ordering Facility: [facility] Address: [address] [place] [address] Performed By: #### 3 4528-0, 83852-9 #### [facility] CLIA [id number] [address] [place] [address] [place] Neutrophils (Bld) [#/Vol] 2.30 10*3/uL Normal 1.45-7.50 [facility] Comment on above: Order Comment: Speci men Type: BLOOD SPECIMEN Ordering Facility: [facility] Address: [address] [place] [address] Performed By: #### 3 4528-0, 70700-3 #### [facility] CLIA [id number] [address] [place] [address] [place] Neutrophils/100 WBC (Bld) 47.6 % Normal [facility] Comment on above: Order Comment: Speci men Type: BLOOD SPECIMEN Ordering Facility: [facility] Address: [address] [place] [address] Performed By: #### 3 4528-0, 63925-6 #### [facility] CLIA [id number] [address] [place] [address] [place] Nucleated RBC (Bld) [#/Vol] 10*3/uL Normal <0.01 [facility] Comment on above: Order Comment: Speci men Type: BLOOD SPECIMEN Ordering Facility: [facility] Address: [address] [place] [address] Performed By: #### 3 4528-0, 67835-1 #### [facility] CLIA [id number] [address] [place] [address] [place] Nucleated RBC/100 WBC (Bld) [Ratio] 0.0 /100 WBC Normal [facility] Comment on above: Order Comment: Speci men Type: BLOOD SPECIMEN Ordering Facility: [facility] Address: [address] [place] [address] Performed By: #### 3 4528-0, 71426-5 #### [facility] CLIA [id number] [address] [place] [address] [place] Platelet mean volume (Bld) [Entitic vol] 10.2 fL Normal 9.0-12.7 [facility] Comment on above: Order Comment: Speci men Type: BLOOD SPECIMEN Ordering Facility: [facility] Address: [address] [place] [address] Performed By: #### 3 4528-0, 04879-7 #### [facility] CLIA [id number] [address] [place] [address] [place] Platelets (Bld) [#/Vol] 169 10*3/uL Normal 150-400 [facility] Comment on above: Order Comment: Speci men Type: BLOOD SPECIMEN Ordering Facility: [facility] Address: [address] [place] [address] Performed By: #### 3 4528-0, 40951-1 #### [facility] CLIA [id number] [address] [place] [address] [place] RBC (Bld) [#/Vol] 4.12 10*6/uL Normal 3.90-5.20 [facility] Comment on above: Order Comment: Speci men Type: BLOOD SPECIMEN Ordering Facility: [facility] Address: [address] [place] [address] Performed By: #### 3 4528-0, 11478-2 #### [facility] CLIA [id number] [address] [place] [address] [place] WBC (Bld) [#/Vol] 4.84 10*3/uL Normal 3.70-11.00 [facility] Comment on above: Order Comment: Speci men Type: BLOOD SPECIMEN Ordering Facility: [facility] Address: [address] [place] [address] Performed By: #### 3 4528-0, 72358-5 #### [facility] CLIA [id number] [address] [place] [address] [place] [facility] CBC W AUTO DIFF BLDon Basophils/100 WBC (Bld) 0.8 % [facility] BASOPHILS # BLD AUTO 0.04 [facility] DIFFERENTIAL METHOD BLD Auto [facility] EOSINOPHIL # BLD AUTO 0.18 [facility] LYMPHOCYTES # BLD AUTO 2 [facility] MONOCYTES # BLD AUTO 0.3 [facility] NEUTROPHILS # BLD AUTO 2.3 [facility] NRBC # BLD AUTO <0.01 [facility] NRBC/100 WBC BLD-RTO 0 /100 WBC [facility] PLATELET # BLD AUTO 169 [facility] PMV BLD AUTO 10.2 fL 9.0 - 12.7 fL [facility] WBC # BLD AUTO 4.84 [facility] Eosinophils/100 WBC (Bld) 3.7 % [facility] Erythrocyte distribution width (RBC) [Ratio] 13.9 % 11.5 - 15.0 % [facility] Hematocrit (Bld) [Volume fraction] 39 % 36.0 - 46.0 % [facility] Hemoglobin (Bld) [Mass/Vol] 13.4 g/dL 11.5 - 15.5 g/dL [facility] IMM GRANULOCYTES # BLD AUTO <0.03 [facility] IMM GRANULOCYTES/LEUK NFR BLD AUTO 0.4 % [facility] Lymphocytes/100 WBC (Bld) 41.3 % [facility] MCH (RBC) [Entitic mass] 32.5 pg 26.0 - 34.0 pg [facility] MCHC (RBC) [Mass/Vol] 34.4 g/dL 30.5 - 36.0 g/dL [facility] MCV (RBC) [Entitic vol] 94.7 fL 80.0 - 100.0 fL [facility] Monocytes/100 WBC (Bld) 6.2 % [facility] Neutrophils/100 WBC (Bld) 47.6 % [facility] RBC (Bld) [#/Vol] 4.12 10*6/uL 3.90 - 5.2 0 m/uL [facility] Specimen Type: BLOOD SPECIMEN Ordering Facility: [facility] Address: [address] [place] [address] Original Ordering Provider: KATARZYNA WHEAT [facility] CONFIRM BLOOD TYPEon 025 ABO B Normal [facility] Comment on above: Order Comment: Speci men Type: BLOOD SPECIMEN Ordering Facility: [facility] Address: [address] [place] [address] Performed By: #### 2 4321-2, HSTNT, 35263-1, 2776-1 #### [facility] CLIA [id number] [address] [place] [address] [place] Rh Nom (Bld) Positive Normal [facility] Comment on above: Order Comment: Speci men Type: BLOOD SPECIMEN Ordering Facility: [facility] Address: [address] [place] [address] Performed By: #### 2 4321-2, HSTNT, , 2776-1 #### [facility] CLIA [id number] [address] [place] [address] [place] ABO group Nom (Bld) B [facility] Rh Nom (Bld) Positive [facility] Comprehensive metabolic 2000 panelon 07-23-2024 Albumin [Mass/Vol] 4.2 g/dL Normal 3.9-4.9 [facility] Comment on above: Order Comment: Speci men Type: BLOOD SPECIMEN Ordering Facility: [facility] Address: [address] [place], [place] [address] Performed By: #### 3 4528-0, 17147-2 #### [facility] CLIA [id number] [address] [place] [address] [place] ALP [Catalytic activity/Vol] 111 U/L Normal 34-123 [facility] Comment on above: Order Comment: Speci men Type: BLOOD SPECIMEN Ordering Facility: [facility] Address: [address] [place] [address] Performed By: #### 3 4528-0, 48645-7 #### [facility] CLIA [id number] [address] [place] [address] [place] ALT [Catalytic activity/Vol] 26 U/L Normal 7-38 [facility] Comment on above: Order Comment: Speci men Type: BLOOD SPECIMEN Ordering Facility: [facility] Address: [address] [place] [address] Performed By: #### 3 4528-0, 38199-9 #### [facility] CLIA [id number] [address] [place] [address] [place] Anion gap [Moles/Vol] 10 mmol/L Normal 8-15 [facility] Comment on above: Order Comment: Speci men Type: BLOOD SPECIMEN Ordering Facility: [facility] Address: [address] [place] [address] Performed By: #### 3 4528-0, 01754-5 #### [facility] CLIA [id number] [address] [place] [address] [place] AST [Catalytic activity/Vol] 28 U/L Normal 13-35 [facility] Comment on above: Order Comment: Speci men Type: BLOOD SPECIMEN Ordering Facility: [facility] Address: [address] [place] [address] Performed By: #### 3 4528-0, 66916-2 #### [facility] CLIA [id number] [address] [place] [address] [place] Bilirubin [Mass/Vol] 0.5 mg/dL Normal 0.2-1.3 [facility] Comment on above: Order Comment: Speci men Type: BLOOD SPECIMEN Ordering Facility: [facility] Address: [address] [place] [address] Performed By: #### 3 4528-0, 46880-9 #### [facility] CLIA [id number] [address] [place] [address] [place] Calcium [Mass/Vol] 9.4 mg/dL Normal 8.5-10.2 [facility] Comment on above: Order Comment: Speci men Type: BLOOD SPECIMEN Ordering Facility: [facility] Address: [address] [place] [address] Performed By: #### 3 4528-0, 44757-8 #### [facility] CLIA [id number] [address] [place] [address] [place] Chloride [Moles/Vol] 108 mmol/L High 98-107 [facility] Comment on above: Order Comment: Speci men Type: BLOOD SPECIMEN Ordering Facility: [facility] Address: [address] [place] [address] Performed By: #### 3 4528-0, 03030-3 #### [facility] CLIA [id number] [address] [place] [address] [place] CO2 [Moles/Vol] 23 mmol/L Normal 22-30 [facility] Comment on above: Order Comment: Speci men Type: BLOOD SPECIMEN Ordering Facility: [facility] Address: [address] [place] [address] Performed By: #### 3 4528-0, 05080-9 #### [facility] CLIA [id number] [address] [place] [address] [place] Creatinine [Mass/Vol] 0.99 mg/dL High 0.58-0.96 [facility] Comment on above: Order Comment: Fabiola bliss Type: BLOOD SPECIMEN Ordering Facility: [facility] Address: [address] [place] [address] Performed By: #### 3 4528-0, 25535-1 #### [facility] CLIA [id number] [address] [place] [address] [place] Creatinine and Glomerular filtration rate.predicted panel (S/P/Bld) 61 mL/min/1.73m??? Normal >=60 [facility] Comment on above: Order Comment: Fabiola bliss Type: BLOOD SPECIMEN Ordering Facility: [facility] Address: [address] [place] [address] Result Comment: Ira mated Glomerular Filtration Rate [...] accurately reflect actual GFR. Performed By: #### 3 4528-0, 47544-2 #### [facility] CLIA [id number] [address] [place] [address] [place] Glucose [Mass/Vol] 155 mg/dL High 74-99 [facility] Comment on above: Order Comment: Fabiola bliss Type: BLOOD SPECIMEN Ordering Facility: [facility] Address: [address] [place] [address] Result Comment: The [place] Diabetes [employer] (ADA) provides guidance for cutoff [...] Standards of Medical Care in Diabetes 2016, [place] [employer]. Diabetes Care. 2016.39(Suppl 1). Performed By: #### 3 4528-0, 86935-9 #### [facility] CLIA [id number] [address] [place] [address] [place] Potassium [Moles/Vol] 4.3 mmol/L Normal 3.7-5.1 [facility] Comment on above: Order Comment: Speci men Type: BLOOD SPECIMEN Ordering Facility: [facility] Address: [address] [place] [address] Performed By: #### 3 4528-0, 14814-2 #### [facility] CLIA [id number] [address] [place] [address] [place] Protein [Mass/Vol] 6.9 g/dL Normal 6.3-8.0 [facility] Comment on above: Order Comment: Speci men Type: BLOOD SPECIMEN Ordering Facility: [facility] Address: [address] [place] [address] Performed By: #### 3 4528-0, 04945-1 #### [facility] CLIA [id number] [address] [place] [address] [place] Sodium [Moles/Vol] 141 mmol/L Normal 136-144 [facility] Comment on above: Order Comment: Speci men Type: BLOOD SPECIMEN Ordering Facility: [facility] Address: [address] [place] [address] Performed By: #### 3 4528-0, 23331-0 #### [facility] CLIA [id number] [address] [place] [address] [place] Urea nitrogen [Mass/Vol] 13 mg/dL Normal 7-21 [facility] Comment on above: Order Comment: Speci men Type: BLOOD SPECIMEN Ordering Facility: [facility] Address: [address] [place] [address] Performed By: #### 3 4528-0, 24156-3 #### [facility] CLIA [id number] [address] [place], [place] [address] [place] ECG COMPLETEon 07-23-2024 ECG COMPLETE Ventricular Rate : 6 6 BPM Atrial Rate : 66 BPM P-R Interval : 158 ms QRS Duration : 78 ms Q-T Interval : 404 ms QTC Calculation(Bazett) : 423 ms Calculated P Branford : 32 degrees Calculated R Branford : 14 degrees Calculated T Branford : 54 degrees NORMAL SINUS RHYTHM NORMAL ECG Confirmed by MD MCCLENDON HEBA ([id number]) on 07/29/2024 12:16:17 PM NAME : SHEY OBRIEN PID : [id number] : 1950 Gender : Female Race : ORD : [id number] Procedure Date : Jul 23 2024 12:08:10 Edit Date : Jul 29 2024 12:16:18 Diagnosis: NORMAL SINUS RHYTHM NORMAL ECG Confirmed by MD MCCLENDON HEBA ([id number]) on 07/29/2024 12:16:17 PM Test Reason : Location : 119 : A17 A17 Overread By : MD MCCLENDON HEBA Edited By : MD MCCLENDON HEBA Referred By : XAVIER BOYD Acquired by : SADE HA [facility] HISTORY PHYSICALon HISTORY PHYSICAL HNO ID: [id number] Author: JAMIL DELACRUZ PA-C Service: ? Author Type: Physician Education Administrator Type: H&P Filed: 07/23/2024 14:03 Note Text: [...] COVID-19 original vaccine, age 12+ yr, monovalent (tado-BIONTECH - PURPLE TOP) Only the first 3 [...] anticoagulation therap (more content not included)... Normal [facility] PT panel Coag (PPP)on 2024 INR Coag (PPP) [Relative time] 1.1 {INR} Normal 0.9-1.3 [facility] Comment on above: Order Comment: Fabiola bliss Type: BLOOD SPECIMEN Ordering Facility: [facility] Address: [address] [place] [address] Result Comment: Francesco min K Antagonist (VKA) Therapeutic Range: INR 2 to 3 (Target INR of 2.5) Note: For patients treated with VKA drugs, such as warfarin, the [place] [employer] 2012 Guideline recommends [...] Chest 2012, 141:7S-47S Keisha RA, et al. [facility] 2017, 70: 252-289 Performed By: #### 3 4528-0, 75814-5 #### [facility] CLIA [id number] [address] [place] [address] [place] PT Coag (PPP) [Time] 11.4 s Normal 9.7-13.0 [facility] Comment on above: Order Comment: Fabiola bliss Type: BLOOD SPECIMEN Ordering Facility: [facility] Address: [address] [place] [address] Performed By: #### 3 4528-0, 27879-4 #### [facility] CLIA [id number] [address] [place] [address] [place] TYPE AND SCREEN,30 DAYon ABO B Normal [facility] Comment on above: Order Comment: Fabiola bliss Type: BLOOD SPECIMEN Ordering Facility: [facility] Address: [address] [place] [address] Performed By: #### 2 4321-2, HSTNT, , 2776- #### [facility] CLIA [id number] [address] [place] [address] [place] Rh Nom (Bld) Positive Normal [facility] Comment on above: Order Comment: Speci men Type: BLOOD SPECIMEN Ordering Facility: [facility] Address: [address] [place] [address] Performed By: #### 2 4321-2, HSTNT, , 2776- #### [facility] CLIA [id number] [address] [place] [address] [place] XR CHEST 2V [...] soft tissues: Unremarkable. IMPRESSION: Large hiatal hernia. Nuclear Medicine Specialist: PSCB Transcribe Date/Time: Jul 24 2024 7:28A Dictated by : JARVIS HUGO MD This examination was interpreted and the report reviewed and electronically signed by: JARVIS HUGO MD on Jul 24 2024 7:30AM EST [id number] Normal [facility] aPTT PPPon 07-23-2024 aPTT Coag (PPP) [Time] 25.5 s Normal 23.0-32.4 [facility] Comment on above: Order Comment: Fabiola bliss Type: BLOOD SPECIMEN Ordering Facility: [facility] Address: [address] [place] [address] Performed By: #### 3 4528-0, 20671-1 #### [facility] CLIA [id number] [address] [place] [address] [facility] CNOVon 04-29-2024 CNOV Office Visit (GENSMN ) KARYNSHEY GARCIA ([id number]) 1950 F Date Time Provider Department 04/29/24 [...] No Yan Moser 04/29/2024 12:10 PM Signed [facility] for Abdominal Core Health - HISTORY AND [...] Consents obtained Yan Moser MD General Surgery [facility], Xavier Mayfield MD 04/29/2024 12:10 PM [...] and discussed (more content not included)... Normal [facility] Surgical Pathology Reporton 03-26-2024 Surgical Pathology Report [facility] [address] [place] [address]- Surgical Pathology Report Collected Date/Time: 03/20/2024 12:52 [...] characteristics were determined by the Laboratory of [facility]. They have not been cleared or approved by the US Food and Drug Administration. The FDA has determined that such clearance or approval is not necessary. These tests are used for clinical purposes. They should not be regarded as investigational or for research. Appropriate positive and negative controls are performed and are acceptable. Normal [facility] Comment on above: Performed By: #### 4 [id number] #### [facility] Laboratory [address] [place] [address] XR Esophaguson 03-26-2024 XR Esophagus Exam Date/Time: [...] mGy = 15.80 DAP = 464.17 Normal [facility] Main OR Intraoperative Recor don 03-22-2024 Main OR Intraoperative Record Main OR Intraoperative Record IntraOp Document Type FT Summary Primary Physician: Dafne Spears MD Finalized Date/Time: 03/22/24 14:46:15 Pt. Name: KARYNSHEY/Sex: 1950 Female Med Rec #: [id number] Physician: Dafne Spears MD Financial #: [id number] Pt. Type: O Room/Bed: / Admit/Disch: 03/20/24 [...] 3 Case Attendee Mariella JOHNSON, Catalina Ivory TAR HEAT EXCHANGER CLEANER, Dafne Ferguson MD Role Performed POKER PROP PLAYER Scrub - Primary Surgeon - Primary Time In 03/20/24 12:44:00 03/20/24 12:44:00 03/20/24 12:44:00 Time Out 03/20/24 12:56:00 03/20/24 12:56:00 03/20/24 12:56:00 Procedure EGD(.) EGD(.) EGD(.) Comments Dr. Spears supervising procedure. Last Modified By: Mynor FORBES, Violette Lopez RN, Essence Pinto RN 03/22/24 14:45:45 03/20/24 12:56:36 03/20/24 12:56:36 Entry 4 Case Attendee Essence Lopez RN Role Performed Die Mounter - Primary Time In 03/20/24 12:44:00 Time [...] and tissue Entry 1 Skin Integrity Intact, [place], Warm, & Skin Abnormality No Dry Outcomes [...] Extended Positioning (more content not included)... Normal [facility] Discharge Instructionson Discharge Instructions Discharge Instructions [...] mg Tab) fluticasone nasal (Flonase 0.05 mg/inh Hooper) losartan (losartan 25 mg Tab) multivitamin with [...] Unchanged fluticasone nasal (Flonase 0.05 mg/ inh Hooper) 2 Sprays Nasal Inhalation Every day Unchanged [...] get better (more content not included)... Normal [facility] Comment on above: Result Comment: Elec tronically Signed By: Kassy Barker I\.br\Date and Time Signed: 03/20/24 13:08 EDT Inpatient Patient Summaryon 03-20-2024 Inpatient Patient Summary Inpatient Patient Summary [place] [id number] [facility] Clinical Discharge Instructions PERSON INFORMATION Name: SHEY OBRIEN PHYSICIANS Admitting Physician: Yovanny OLIVO, Dafne Torres [...] (at bedtime). fluticasone nasal (Flonase 0.05 mg/inh Hooper) 2 Sprays Nasal Inhalation every day. losartan [...] bedtime) as needed for sleep. Comment: Normal [facility] Main OR PACU I Recordon 03-10 Main OR PACU I Record Main OR PACU I Rec ord PACU Phase I Document Type FT Summary Primary Physician: Dafne Spears MD Finalized Date/Time: 03/20/24 13:37:02 Pt. Name: SHEY OBRIEN Tamie/Sex: 1950 Female Med Rec #: [id number] Physician: Dafne Spears MD Financial #: [id number] Pt. Type: O Room/Bed: / Admit/Disch: 03/20/24 [...] By: Kassy Barker I 03/20/24 13:37 Normal [facility] Main OR Preoperative Recordo n 03-20-2024 Main OR Preoperative Record Main OR Preoperative Record Holding Area Document Type FT Summary Primary Physician: Dafne Spears MD Finalized Date/Time: 03/20/24 11:17:32 Pt. Name: KARYNSHEY/Sex: 1950 Female Med Rec #: [id number] Physician: Dafne Spears MD Financial #: [id number] Pt. 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 fluticasone nasal (Flonase 0.05 mg/inh Hooper) 2 Sprays Nasal Inhalation every day. losartan [...] PATIENT EDUCATION INFORMATION Instructions: Medication Leaflets: Normal [facility] Proceduralon 03-20-2024 Procedural Procedural Patient: SHEY OBRIEN Age: 73 years Sex: Female : 1950 Associated Diagnoses: None Author: Daquan Schuler MD Postoperative Information Postoperative disposition: Postoperative disposition: To PACU. Optimetrix number: Optimetrix number [id number]. Anesthetic utilized: General. Health Status Allergies: Allergic [...] when meets criteria ( To home ). [facility] Procedural Procedural Patient: SHEY OBRIEN Age: [...] 1 tab, Oral, Daily Flonase 0.05 mg/inh Hooper: 2 spray(s), Nasal, Daily, Refill(s) 0, Dry [...] a day (at bedtime) Flonase 0.05 mg/inh Hooper 2 spray(s), Nasal, Daily losartan 25 mg [...] All Problems BMI 39.0-39.9,adult / SNOMED CT 886720825 / Confirmed Chronic obstructive pulmonary disease / SNOMED CT 53775581 / Confirmed Dyslipidemia / SNOMED CT 2469610107 / Confirmed Dysphagia / SNOMED CT 69505359 / Confirmed GERD (gastroesophageal reflux disease) / SNOMED CT 245890665 / Confirmed Hiatal hernia / SNOMED CT 074577944 / Confirmed HTN (hypertension) / SNOMED CT 9978705944 / Confirmed Insomnia / SNOMED CT 618437150 / Confirmed Lower extremity edema / SNOMED CT 375241982 / Confirmed Morbid obesity / SNOMED CT 199762547 / Confirmed EDWIN (obstructive sleep apnea) / SNOMED CT 578234958 / Confirmed Screening for malignant neoplasm of colon / SNOMED CT 432546225 / Confirmed Seasonal allergic rhinitis / SNOMED CT 400143296 / Confirmed TIA (transient ischemic attack) / SNOMED CT 937955823 / Confirmed Resolved: At risk for falls / SNOMED CT 810922383 Problem added when Risk for Falls Careplan was initiated. Resolved due to patient discharge. Resolved: Hernia / SNOMED CT 165549877 Resolved: Potential for deficient knowledge of cerebrovascular accident (CVA) / IMO 50111729 problem added based on Stroke Powerplan ordered. Resolved due to patient discharge. Resolved: Sleep apnea / SNOMED CT 499667328, Active Problems (14) BMI 39.0-39.9,adult Chronic obstructive pulmonary disease Dyslipidemia Dysphagia GERD (gastroesophageal reflux disease) Hiatal hernia HTN (hypertension) Insomnia Lower extremity edema Morbid obesity EDWIN (obstructive sleep apnea) Screening for malignant neoplasm of colon Seasonal allergic rhinitis TIA (transient ischemic (more content not included)... Normal [facility] ALL FOLIC ACIDon 03-07-2024 FOLATE 23.60 ng/mL 8.60 - 58.90 ng/mL [facility] ALL THYROID STIM HORMONEon 0 03-07-2024 TSH Qn 2.782 m[IU]/L [facility] No Panel Informationon 03-07 CLINISYNC [facility] Ambulatory Visit Summaryon 0 02-26-2024 Ambulatory Visit [...] mg Tab) fluticasone nasal (Flonase 0.05 mg/inh Hooper) losartan (losartan 25 mg Tab) multivitamin with [...] Unchanged fluticasone nasal (Flonase 0.05 mg/ inh Hooper) 2 Sprays Nasal Inhalation Every day Contact [...] for choosing us for your care. Normal [facility] Gastroenterology Office/Clin ic Noteon 02-26-2024 Gastroenterology [...] or gangrene) reports she had esophagram in [place] no egd in the past declined surgery [...] a day (at bedtime) Flonase 0.05 mg/inh Hooper, 2 spray(s), Nasal, Daily losartan 25 mg [...] virus vaccine, inactivated 05/03/2022 Recorded SARS-CoV-2 (COVID-19) [id number] 05/03/2022 Recorded influenza virus vaccine, inactivated 04/12/2021 [...] influenza virus vaccine, inactivated 04/16/2015 Recorded Normal [facility] Comment on above: Result Comment: Elec tronically Signed By: Yovanny OLIVO, Dafne Torres\.br\Date and Time Signed: 02/26/24 09:38 EDT IntraOperative Documentson 0 10-19-2023 IntraOperative Documents [id number] .00TIFF [facility] Consenton 10-16-2023 Consent [id number]#1. 00TIFF Normal [facility] Discharge Instructionson Discharge Instructions [id number]#1. 00TIFF Normal [facility] Main OR Intraoperative Recor don 10-16-2023 Main OR Intraoperative Record IntraOp Document Type FT Summary Primary Physician: Pa WEBB MD Finalized Date/Time: 10/16/23 09:46:21 Pt. Name: SHEY OBRIEN.O.B./Sex: 1950 Female Med Rec #: [id number] Physician: Pa WEBB MD Financial #: [id number] Pt. Type: O Room/Bed: / Admit/Disch: 10/13/23 [...] 1 Entry 2 Entry 3 [facility] Pa Infante RN, Kimberly Gross Role Performed Anesthesiologist Surgeon - Primary Die Mounter - Primary Education Administrator Time In 10/13/23 08:55:00 10/13/23 08:55:00 10/13/23 08:55:00 Time Out 10/13/23 09:16:00 10/13/23 09:16:00 10/13/23 09:16:00 Procedure COLONOSCOPY(.) COLONOSCOPY(.) COLONOSCOPY(.) Comments DR BETHEA SUPERVISING Last Modified By: Naresh FORDE, iKmberly Infante Kimberly FORDE RN, Amy J 10/13/23 09:16:35 10/13/23 09:16:35 10/13/23 09:16:35 Entry [...] and tissue Entry 1 Skin Integrity Intact, [place], Warm, and Skin Abnormality No Dry Outcomes [...] Infante RN (more content not included)... Normal [facility] Postoperative Documentson Postoperative Documents [id number]#1. 00TIFF Normal [facility] Reminderson 10-16-2023 Reminders - From: Nhi Aguirre LPN To: GSN - Clinical; Sent: 10/16/2023 10:15:48 EDT Show up: 09/11/2033 07:00:00 EST Subject: colonoscopy recall Due Date/Time: 10/12/2033 07:00:00 EDT Reminder/Recall Patient due for screening colonoscopy 10/12/2033. Normal [facility] Colonoscopy Procedure Report on 10-13-2023 Colonoscopy [...] for screening for malignant neoplasm of rectum ([id number] Z12.12, Discharge, Medical). Course: Progressing as expected. Recommendations: Repeat colonoscopy:: In 10 years. Follow-up:: if problems/questions. Diet:: Regular diet. Medication resumption:: Continue current medications. Return to activities:: After 24 hours. Education and Follow-up: Counseled: Family. Kary [facility] Comment on above: Other Comment: Samreen dueñas Attachment - attachment storage system not supported [id number] Can be viewed in source systemMissing Attachment - attachment storage system not supported [id number] Can be viewed in source systemMissing Attachment - attachment storage system not supported [id number] Can be viewed in source systemMissing Attachment - attachment storage system not supported 7803534 Can be viewed in source systemMissing Attachment - attachment storage system not supported [id number] Can be viewed in source system Consent for Treatmenton 04-0 Consent for Treatment [id number]#1.0 0TIFF Normal [facility] Discharge Instructionson Discharge Instructions SHEY OBRIEN :1950 [...] mg Tab) fluticasone nasal (Flonase 0.05 mg/inh Hooper) losartan (losartan 25 mg Tab) multivitamin with [...] Pa WEBB When: Only if needed Where: [facility] [address], [address] [place] [id number]- [facility] (1) Medications What How Much When [...] Unchanged fluticasone nasal (Flonase 0.05 mg/ inh Hooper) 2 Sprays Nasal Inhalation Every day Unchanged [...] as instru (more content not included)... Normal [facility] Comment on above: Result Comment: Elec tronically Signed By: Marcy FORDE, Mariaelena\.br\Date and Time Signed: 10/13/23 09:33 EDT Inpatient Patient Summaryon 10-13-2023 Inpatient Patient Summary [place] [id number] [facility] Clinical Discharge Instructions PERSON INFORMATION Name: SHEY OBRIEN PHYSICIANS Admitting Physician: Pa WEBB MD Attending Physician: Pa WEBB MD PCP: ALTRELL JACK MD Discharge Diagnosis: Encounter for colorectal cancer screening; Encounter for screening for malignant neoplasm of rectum Comment: PATIENT EDUCATION INFORMATION Instructions: Medication Leaflets: Follow up: With: Address: When: Pa WEBB [address] [place] [address], [address], [place] [id number] Business (1) , only if needed MEDICATION [...] (at bedtime). fluticasone nasal (Flonase 0.05 mg/inh Hooper) 2 Sprays Nasal Inhalation every day. losartan [...] bedtime) as needed for sleep. Comment: Normal [facility] Main OR PACU I Recordon Main OR PACU I Record PACU Phase I Docum ent Type FT Summary Primary Physician: Pa WEBB MD Finalized Date/Time: 10/13/23 09:54:27 Pt. Name: KARYNSHEY/Sex: 1950 Female Med Rec #: [id number] Physician: Pa WEBB MD Financial #: [id number] Pt. Type: O Room/Bed: / Admit/Disch: 10/13/23 [...] By: Mariaelena Vidal RN 10/13/23 09:54 Normal [facility] Main OR Preoperative Recordo n 10-13-2023 Main OR Preoperative Record Holding Area Document Type FT Summary Primary Physician: Pa WEBB MD Finalized Date/Time: 10/13/23 08:06:06 Pt. Name: SHEY OBRIEN/Sex: 1950 Female Med Rec #: [id number] Physician: Pa WEBB MD Financial #: [id number] Pt. Type: O Room/Bed: / Admit/Disch: 10/13/23 [...] Signed By: Trip Domínguez 10/13/23 08:06 Normal [facility] Monitor Recordon 10-13-2023 Monitor Record [id number]. 00TIFF Normal [facility] Monitor Record [id number]#1. 00TIFF [facility] Outpatient Surgery Discharge Instructionon 10-13-2023 Outpatient Surgery Discharge Instruction [place] [id number] Patient Discharge Instructions PERSON INFORMATION Name: SHEY [...] Follow up: With: Address: When: [address], [address], [facility] [address] [place] [phone] Business (1) , only if needed Pharmacy [...] (at bedtime). fluticasone nasal (Flonase 0.05 mg/inh Hooper) 2 Sprays Nasal Inhalation every day. losartan [...] sleep. PATIENT EDUCATION INFORMATION Instructions: Medication Leaflets: [facility] Patient Education - Texton 0 10-13-2023 [...] or gets worse throughout the day. Normal [facility] Progress Note-Physicianon Progress Note-Physician Patient: SHEY OBRIEN Age: 73 years Sex: Female : 1950 Associated Diagnoses: None Author: Shaji Bethea Jr., DO Postoperative Information Postoperative disposition: Postoperative disposition: Home. Optimetrix number: Optimetrix number [id number]. Anesthetic utilized: General. Physical Examination Vital Signs [...] Surgery Unit, and To home ). Normal [facility] Comment on above: Result Comment: Elec [...] m2 Documented Medications Documented Flonase 0.05 mg/inh Hooper: 2 spray(s), Nasal, Daily, Refill(s) 0, Dry [...] a day (at bedtime) Flonase 0.05 mg/inh Hooper 2 spray(s), Nasal, Daily losartan 25 mg [...] All Problems BMI 39.0-39.9,adult / SNOMED CT 664925158 / Confirmed Chronic obstructive pulmonary disease / SNOMED CT 49068732 / Confirmed Dyslipidemia / SNOMED CT 5879499918 / Confirmed GERD (gastroesophageal reflux disease) / SNOMED CT 071977173 / Confirmed Hiatal hernia / SNOMED CT 961751207 / Confirmed HTN (hypertension) / SNOMED CT 4163408826 / Confirmed Insomnia / SNOMED CT 170726095 / Confirmed Lower extremity edema / SNOMED CT 030783665 / Confirmed Morbid obesity / SNOMED CT 930166942 / Confirmed EDWIN (obstructive sleep apnea) / SNOMED CT 968473653 / Confirmed Screening for malignant neoplasm of colon / SNOMED CT 136272591 / Confirmed Seasonal allergic rhinitis / SNOMED CT 617130339 / Confirmed TIA (transient ischemic attack) / SNOMED CT 455652267 / Confirmed Resolved: At risk for falls / SNOMED CT 264530975 Problem added when Risk for Falls Careplan was initiated. Resolved due to patient discharge. Resolved: Hernia / SNOMED CT 232759450 Resolved: Potential for deficient knowledge of cerebrovascular accident (CVA) / IMO 02725304 problem added based on Stroke Powerplan ordered. Resolved due to patient discharge. Resolved: Sleep apnea / SNOMED CT 081542476 Histories Past Medical History: Resolved Hernia (194356572): Resolved. Sleep apnea (001688810): Resolved. Procedure history: ORIF - Open reduction of fracture of ankle with internal fixation (473342505185058). Meniscal repair (834380197). Tonsillectomy (763891730). Hand tendon repaired (124114313). Social History Social & Psychosocial Habits Alcohol 09/12/2023 Frequency: 1-2 times per year Substance Abuse Comment: denies - 03/03/2021 07:19 - Terry FORDE, Carolyn Gil 09/12/2023 Risk Assessment: Denies Substance Abuse Tobacco 09/12/2023 Tobacco Use: Former smoker, quit more Smokeless tobacco use: Never Type: Cigarettes . Physical Examination Vital Signs 10/13/2023 8:03 EDT Temperature Temporal Artery 36.3 DegC (more content not included)... Normal [facility] Comment on above: Result Comment: Elec tronically Signed By: Shaji Bethea Jr., DO.maikol\Date and Time Signed: 10/13/23 08:04 EDT Consent for Procedure/Surger yon 09-13-2023 Consent for Procedure/Surgery [id number]#1.00 TIFF Kary Jernigan [facility] Ambulatory Visit Summaryon 0 09-12-2023 Ambulatory [...] mg Tab) fluticasone nasal (Flonase 0.05 mg/inh Hooper) losartan (losartan 25 mg Tab) multivitamin with [...] Unchanged fluticasone nasal (Flonase 0.05 mg/ inh Hooper) 2 Sprays Nasal Inhalation Every day Contact [...] you for choosing us for your care. [facility] Provider Letteron 08-25-2023 Provider Letter August 25, 2023 SHEY OBRIEN [address] [place] [phone] : 1950 Dear Ms. Obrien, We have been trying to reach you with no success regarding a referral from Dr Jack. It is important that you return our call upon receiving this letter so that we can set up an appointment for you in either our [place] or [place] office. Also, at the time of your call, please provide us with your current demographic and insurance information. Thank you for your prompt attention to this matter. Sincerely, [facility] General Surgery [phone] [facility] Physician Referralon 024 Physician Referral [id number] [facility] [address] LUNG CANCER SCREENINGon 0 07-28-2022 [...] MEHNAZ SANTIAGO Date: 2022-07-28 15:28 Normal [facility] BNPon 02-22-2022 Natriuretic peptide B (Bld) [Mass/Vol] 108.0 pg/mL Normal <=900.0 [facility] Comment on above: Performed By: #### B MP, BNP, HSTROPN ####[facility] [address] [place] [address]Dr. Felisa Trujillo CBC AUTO DIFFon 02-22-2022 BASO # 0.0 103/ul Normal 0.0-0.1 [facility] Comment on above: Performed By: #### C BC ####[facility] [address] [place] [id number]. Felisa Trujillo Basophils/100 WBC (Bld) 0.7 % Normal 0.2-2.0 [facility] Comment on above: Performed By: #### C BC ####[facility] Yp[address] [place] [address]Dr. Felisa Trujillo EO # 0.1 103/ul Normal 0.0-0.7 [facility] Comment on above: Performed By: #### C BC ####[facility] [address] [place] [address]Dr. Felisa Trujillo Eosinophils/100 WBC (Bld) 1.4 % Normal 0.9-7.0 [facility] Comment on above: Performed By: #### C BC ####[facility] [address] [place], [place] [address]Dr. Felisa Trujillo Erythrocyte distribution width (RBC) [Ratio] 13.2 % Normal 11.0-15.0 [facility] Comment on above: Performed By: #### C BC ####[facility] [address] [place], [place] [address]Dr. Felisa Trujillo Hematocrit (Bld) [Volume fraction] 36.6 % Normal 36.0-48.0 [facility] Comment on above: Performed By: #### C BC ####[facility] [address] [place], [place] [address]Dr. Felisa Trujillo Hemoglobin (Bld) [Mass/Vol] 12.7 g/dL Normal 12.0-16.0 [facility] Comment on above: Performed By: #### C BC ####[facility] Tr[address] [place], [place] [address]Dr. Fleisa Trujillo IG # 0.01 10e3/ul Normal 0.00-0.03 [facility] Comment on above: Performed By: #### C BC ####[facility] [address] [place], [place] [address]Dr. Felisa Trujillo IG % 0.2 % Normal 0.0-0.5 [facility] Comment on above: Performed By: #### C BC ####[facility] E[address]ip[address] [place], [place] [address]Dr. Krystakun Trujillo LYMPH # 1.0 103/ul Critically low 1.2-3.8 [facility] Comment on above: Performed By: #### C BC ####[facility] [address]ct[address] [place] [phone]. Krystakun Trujillo Lymphocytes/100 WBC (Bld) 22.3 % Normal 20.5-60.0 [facility] Comment on above: Performed By: #### C BC ####[facility] Xzw[address]wzkrg[address] [place] [phone]. Felisa Trujillo MANUAL DIFF REQ NO Normal [facility] Comment on above: Performed By: #### C BC ####[facility] Rhvmxhyiwk60[address] [place] [id number]. Felisa Trujillo MCH (RBC) [Entitic mass] 31.8 pg Normal 26.7-34.0 [facility] Comment on above: Performed By: #### C BC ####[facility] [address] [place], [place] [address]Dr. Felisa Trujillo MCHC (RBC) [Mass/Vol] 34.7 g/dL Normal 29.9-35.2 [facility] Comment on above: Performed By: #### C BC ####[facility] [address]zg[address] [place] [address]Dr. Felisa Trujillo MCV (RBC) [Entitic vol] 91.7 fL Normal 81.0-99.0 [facility] Comment on above: Performed By: #### C BC ####[facility] [address] [place], [place] [address]Dr. Felisa Trujillo MONO # 0.5 103/ul Normal 0.3-0.8 [facility] Comment on above: Performed By: #### C BC ####[facility] Kcpojb[address]ll[address] [place] [address]Dr. Felisa Trujillo Monocytes/100 WBC (Bld) 11.7 % Normal 1.7-12.0 [facility] Comment on above: Performed By: #### C BC ####[facility] [address] [place], [place] [address]Dr. Felisa Trujillo NEUT # 2.7 103/ul Normal 1.4-6.5 [facility] Comment on above: Performed By: #### C BC ####[facility] [address]iybnu[address] [place], [place] [address]Uf. Felisa Trujillo Neutrophils/100 WBC (Bld) 63.7 % Normal 43.0-75.0 [facility] Comment on above: Performed By: #### C BC ####[facility] [address] [place] [phone]. Felisa Trujillo Platelet mean volume (Bld) [Entitic vol] 10.2 fL Normal 9.5-13.5 [facility] Comment on above: Performed By: #### C BC ####[facility] Ctdbvcezgj13[address] [place] [id number]. Felisa Trujillo PLT 149 103/ul Critically low 150-450 [facility] Comment on above: Performed By: #### C BC ####[facility] [address] [place] [address]Dr. Felisa Trujillo RBC 3.99 106/ul Critically low 4.20-5.40 [facility] Comment on above: Performed By: #### C BC ####[facility] Goyedbbnqd[address] [place] [phone]. Felisa Trujillo WBC 4.3 103/ul Normal 4.0-11.0 [facility] Comment on above: Performed By: #### C BC ####[facility] Ambrnzglcd[address] [place] [phone]. Felisa Trujillo [facility]on 02-07 SARS-CoV-2 (COVID-19) RNA DUGLAS+probe Ql (Unsp spec) Detected Critically abnormal NOT DETECTED [facility] Comment on above: Result Comment: This test is not yet approved or cleared by the [place] FDA. When there are no FDA-approved or cleared tests available, and other criteria are met, FDA can make tests available under an emergency access mechanism called an Emergency Use Authorization (EUA). The EUA for this test is supported by the Paint Formulator of Health and Human Service's declaration that [...] be used). Performed By: #### C VDTBH ####[facility] [address] [place] [address]Dr. Felisa Trujillo PROF CHEM 8 (BAS METB)on Anion gap [Moles/Vol] 14.9 mmol/L Normal [facility] Comment on above: Performed By: #### B MP, BNP, HSTROPN ####[facility] [address]es[address] [place] [address]Dr. Felisa Trujillo Calcium [Mass/Vol] 8.9 mg/dL Normal 8.5-10.1 [facility] Comment on above: Performed By: #### B MP, BNP, HSTROPN ####[facility] [address] [place], [place] [address]Dr. Felisa Trujillo Chloride [Moles/Vol] 104 mmol/L Normal 98-107 [facility] Comment on above: Performed By: #### B MP, BNP, HSTROPN ####[facility] [address] [place], [place] [address]Dr. Felisa Trujillo CO2 [Moles/Vol] 24.0 mmol/L Normal 21.0-32.0 [facility] Comment on above: Performed By: #### B MP, BNP, HSTROPN ####[facility] [address] [place], [place] [address]Dr. Felisa Trujillo Creatinine [Mass/Vol] 0.98 mg/dL Normal 0.55-1.02 [facility] Comment on above: Performed By: #### B MP, BNP, HSTROPN ####[facility] [address]ts[address] [place], [place] [address]Dr. Felisa Trujillo EGFR-AF CAMBODIAN >60 Normal >=60 [facility] Comment on above: Performed By: #### B MP, BNP, HSTROPN ####[facility] R[address]kl[address]nd[address] [place], [place] [address]Dr. Felisa Trujillo EGFR-NON AF CAMBODIAN 56 mL/min/1.73m2 Critically low >=60 [facility] Comment on above: Performed By: #### B MP, BNP, HSTROPN ####[facility] [address] [place] [address]Dr. Felisa Trujillo Glucose [Mass/Vol] 136 mg/dL Critically high 74-106 T [facility] Comment on above: Performed By: #### B MP, BNP, HSTROPN ####[facility] [address] [place] [address]Dr. Felisa Trujillo Potassium [Moles/Vol] 3.9 mmol/L Normal 3.5-5.1 [facility] Comment on above: Performed By: #### B MP, BNP, HSTROPN ####[facility] [address] [place] [address]Dr. Felisa Trujillo Sodium [Moles/Vol] 139 mmol/L Normal 136-145 [facility] Comment on above: Performed By: #### B MP, BNP, HSTROPN ####[facility] [address] [place] [address]Dr. Felisa Trujillo Urea nitrogen [Mass/Vol] 14.0 mg/dL Normal 7.0-18.0 [facility] Comment on above: Performed By: #### B MP, BNP, HSTROPN ####[facility] [address] [place] [address]Dr. Felisa Trujillo Urea nitrogen/Creatinine [Mass ratio] 14.3 mg/mg Normal [facility] Comment on above: Performed By: #### B MP, BNP, HSTROPN ####[facility] [address] [place], [place] [address]Dr. Felisa Trujillo TROPONIN, HIGH SENSITIVITYon 02-22-2022 HSTROP 5.9 pg/mL Normal 4.0-51.3 [facility] Comment on above: Result Comment: CUT- OFF POINTS HAVE BEEN ESTABLISHED BASED ON THE FOURTH UNIVERSAL DEFINITIONS OF MYOCARDIAL INFARCTION. THE UPPER REFERENCE LIMIT (URL) OF TROPONIN, DEFINED THE 99TH PERCENTILE OF cTnI DISTRIBUTION IN A REFERENCE POPULATION, HAS BEEN CONFIRMED THE DECISION THRESHOLD FOR [place] DIAGNOSIS. Performed By: #### B MP, BNP, HSTROPN ####[facility] [address] [place], [place] [address]LiMichelle Trujillo XR CHEST 1 Von 02-22-2022 XR [...] MEHNAZ SANTIAGO Date: 2022-02-22 13:30 Normal [facility] MAMM SCREEN 3D RONALD CADon 11-11-2021 MAMM SCREEN 3D RONALD CAD Patient: SHEY OBRIEN Exam Date: 11/11/2021 : 1950 Gender:F Ordering : DR LATRELL JACK . Admission #: [id number] Family : Order #: [id number] CLICK HERE TO VIEW EXAM RADIOLOGY REPORT PROCEDURE: MAMMOGRAM SCREENING 3D BILATERAL CAD COMPARISON: MAMM SCREEN 3D RONALD CAD, 11/05/2020. INDICATIONS: Screening mammography Calculator Name NCI Breast Cancer Risk Assessment Tool 5 Year Breast Cancer Risk 1.90% Lifetime Breast Cancer Risk 5.60% Personal Breast Cancer No Personal Ovarian Cancer No Treatments None Family Cancers Father with lung cancer at age 45. LOCATION: [facility] BREAST COMPOSITION: Almost entirely fatty. FINDINGS: [...] MD on 11/11/2021 at 13:04 Normal [facility] BNPon 11-02-2021 Natriuretic peptide B (Bld) [Mass/Vol] 42.0 pg/mL Normal <=900.0 [facility] Comment on above: Performed By: #### H STROPN, CMP, BNP #### [facility] [address] [place] [address] Dr. Felisa Trujillo CBC AUTO DIFFon 11-02-2021 BASO # 0.1 103/ul Normal 0.0-0.1 [facility] Comment on above: Performed By: #### C BC #### [facility] [address] [place] [address] Dr. Felisa [place] Basophils/100 WBC (Bld) 0.8 % Normal 0.2-2.0 [facility] Comment on above: Performed By: #### C BC #### [facility] [address] [place] [address] Dr. Felisa Trujillo EO # 0.3 103/ul Normal 0.0-0.7 [facility] Comment on above: Performed By: #### C BC #### [facility] [address] [place] [address] Dr. Felisa Trujillo Eosinophils/100 WBC (Bld) 3.9 % Normal 0.9-7.0 [facility] Comment on above: Performed By: #### C BC #### [facility] [address] [place] [address] Dr. Felisa Trujillo Erythrocyte distribution width (RBC) [Ratio] 12.7 % Normal 11.0-15.0 [facility] Comment on above: Performed By: #### C BC #### [facility] [address] [place] [address] Dr. Felisa Trujillo Hematocrit (Bld) [Volume fraction] 40.2 % Normal 36.0-48.0 [facility] Comment on above: Performed By: #### C BC #### [facility] [address] [place] [address] Dr. Felisa Trujillo Hemoglobin (Bld) [Mass/Vol] 13.6 g/dL Normal 12.0-16.0 [facility] Comment on above: Performed By: #### C BC #### [facility] [address] [place] [address] Dr. Felisa Trujillo IG # 0.02 10e3/ul Normal 0.00-0.03 [facility] Comment on above: Performed By: #### C BC #### [facility] [address] [place] [address] Dr. Felisa Trujillo IG % 0.3 % Normal 0.0-0.5 [facility] Comment on above: Performed By: #### C BC #### [facility] [address] [place] [address] Dr. Felisa Trujillo LYMPH # 1.9 103/ul Normal 1.2-3.8 [facility] Comment on above: Performed By: #### C BC #### [facility] [address] [place] [address] Dr. Felisa Trujillo Lymphocytes/100 WBC (Bld) 30.0 % Normal 20.5-60.0 [facility] Comment on above: Performed By: #### C BC #### [facility] [address] [place] [address] Dr. Felisa Trujillo MANUAL DIFF REQ NO Normal [facility] Comment on above: Performed By: #### C BC #### [facility] [address] [place] [address] Dr. Felisa Trujillo MCH (RBC) [Entitic mass] 31.5 pg Normal 26.7-34.0 [facility] Comment on above: Performed By: #### C BC #### [facility] [address] [place] [address] Dr. Felisa Trujillo MCHC (RBC) [Mass/Vol] 33.8 g/dL Normal 29.9-35.2 [facility] Comment on above: Performed By: #### C BC #### [facility] [address] [place] [address] Dr. Felisa Trujillo MCV (RBC) [Entitic vol] 93.1 fL Normal 81.0-99.0 [facility] Comment on above: Performed By: #### C BC #### [facility] [address] [place] [address] Dr. Felisa Trujillo MONO # 0.6 103/ul Normal 0.3-0.8 [facility] Comment on above: Performed By: #### C BC #### [facility] [address] [place] [address] Dr. Felisa Trujillo Monocytes/100 WBC (Bld) 8.5 % Normal 1.7-12.0 [facility] Comment on above: Performed By: #### C BC #### [facility] [address] [place] [address] Dr. Felisa Trujillo NEUT # 3.7 103/ul Normal 1.4-6.5 [facility] Comment on above: Performed By: #### C BC #### [facility] [address] [place] [address] Dr. Felisa Trujillo Neutrophils/100 WBC (Bld) 56.5 % Normal 43.0-75.0 [facility] Comment on above: Performed By: #### C BC #### [facility] [address] [place] [address] Dr. Felisa Trujillo Platelet mean volume (Bld) [Entitic vol] 9.9 fL Normal 9.5-13.5 [facility] Comment on above: Performed By: #### C BC #### [facility] [address] [place] [address] Dr. Felisa Trujillo PLT 193 103/ul Normal 150-450 [facility] Comment on above: Performed By: #### C BC #### [facility] [address] [place] [address] Dr. Felisa Trujillo RBC 4.32 106/ul Normal 4.20-5.40 [facility] Comment on above: Performed By: #### C BC #### [facility] [address] [place] [address] Dr. Felisa Trujillo WBC 6.5 103/ul Normal 4.0-11.0 [facility] Comment on above: Performed By: #### C BC #### [facility] [address] [address] [address] Felisa Trujillo Covid-19 PCR (CVDTBH)on 10-09 SARS-CoV-2 (COVID-19) RNA DUGLAS+probe Ql (Unsp spec) Not detected Normal NOT DETECTED [facility] Comment on above: Result Comment: When [...] this test is supported by the Paint Formulator of Health and Human Service's declaration that [...] used). Performed By: #### C VDTBH #### [facility] [address] [place] [address] Dr. Felisa Trujillo LACTATE/LACTIC ACIDon 2021 Lactate [Moles/Vol] 1.0 mmol/L Normal 0.4-2.0 [facility] Comment on above: Performed By: #### L ACT ####[facility] [address] [address]Dr. Felisa Trujillo PH VENOUS BLOODon 11-02-2021 PCO2 VENOUS 40.3 mmHg Normal 40.0-52.0 [facility] Comment on above: Performed By: #### P HVEN ####[facility] [address] [id number]. Felisa Trujillo pH VENOUS 7.431 Critically high 7.330-7.430 [facility] Comment on above: Performed By: #### P HVEN ####[facility] [address] [address]Dr. Felisa Trujillo PROF 14(COMP METB)on 022 Albumin [Mass/Vol] 4.1 g/dL Normal 3.4-5.0 [facility] Comment on above: Performed By: #### H STROPN, CMP, BNP ####[facility] [address] [address]Dr. Felisa Trujillo Albumin/Globulin [Mass ratio] 1.1 {ratio} Normal [facility] Comment on above: Performed By: #### H STROPN, CMP, BNP ####[facility] [address] [address]Dr. Felisa Trujillo ALP [Catalytic activity/Vol] 120 U/L Critically high 46-116 [facility] Comment on above: Performed By: #### H STROPN, CMP, BNP ####[facility] [address] [address]Dr. Felisa Trujillo ALT [Catalytic activity/Vol] 29 U/L Normal 14-59 [facility] Comment on above: Performed By: #### H STROPN, CMP, BNP ####[facility] [address] [address]Dr. Felisa Trujillo Anion gap [Moles/Vol] 14.2 mmol/L Normal [facility] Comment on above: Performed By: #### H STROPN, CMP, BNP ####[facility] [address] [address]Dr. Felisa Trujillo AST [Catalytic activity/Vol] 24 U/L Normal 15-37 [facility] Comment on above: Performed By: #### H STROPN, CMP, BNP ####[facility] [address] [address]Dr. Felisa Trujillo Bilirubin [Mass/Vol] 0.6 mg/dL Normal 0.2-1.0 [facility] Comment on above: Performed By: #### H STROPN, CMP, BNP ####[facility] [address] [place], [place] [address]Dr. Felisa Trujillo Calcium [Mass/Vol] 8.8 mg/dL Normal 8.5-10.1 [facility] Comment on above: Performed By: #### H STROPN, CMP, BNP ####[facility] [address] [address]Dr. Felisa Trujillo Chloride [Moles/Vol] 103 mmol/L Normal 98-107 [facility] Comment on above: Performed By: #### H STROPN, CMP, BNP ####[facility] [address] [address]Dr. Felisa Trujillo CO2 [Moles/Vol] 25.3 mmol/L Normal 21.0-32.0 [facility] Comment on above: Performed By: #### H STROPN, CMP, BNP ####[facility] [address] [address]Dr. Felisa Trujillo Creatinine [Mass/Vol] 0.86 mg/dL Normal 0.55-1.02 [facility] Comment on above: Performed By: #### H STROPN, CMP, BNP ####[facility] [address] [place], [place] [address]Dr. Felisa Trujillo EGFR-AF CAMBODIAN >60 Normal >=60 [facility] Comment on above: Performed By: #### H STROPN, CMP, BNP ####[facility] [address] [place], [place] [address]Dr. Felisa Trujillo EGFR-NON AF CAMBODIAN >60 Normal >=60 [facility] Comment on above: Performed By: #### H STROPN, CMP, BNP ####[facility] [address] [place], [place] [address]Dr. Felisa Trujillo Globulin (S) [Mass/Vol] 3.6 g/dL Normal [facility] Comment on above: Performed By: #### H STROPN, CMP, BNP ####[facility] [address] [address]Dr. Felisa Trujillo Glucose [Mass/Vol] 90 mg/dL Normal 74-106 [facility] Comment on above: Performed By: #### H STROPN, CMP, BNP ####[facility] [address] [address]Dr. Felisa Trujillo Potassium [Moles/Vol] 3.5 mmol/L Normal 3.5-5.1 [facility] Comment on above: Performed By: #### H AJITH, CMP, BNP ####[facility] [address] [address]Dr. Felisa Trujillo Protein [Mass/Vol] 7.7 g/dL Normal 6.1-8.2 [facility] Comment on above: Performed By: #### H MICHAELPN, CMP, BNP ####[facility] [address] [address]Dr. Felisa Trujillo Sodium [Moles/Vol] 139 mmol/L Normal 136-145 [facility] Comment on above: Performed By: #### H AJITH, CMP, BNP ####[facility] [address] [address]Dr. Felisa Trujillo Urea nitrogen [Mass/Vol] 13.0 mg/dL Normal 7.0-18.0 [facility] Comment on above: Performed By: #### H AJITH, CMP, BNP ####[facility] [address] [address]Dr. Felisa Trujillo Urea nitrogen/Creatinine [Mass ratio] 15.1 mg/mg Normal [facility] Comment on above: Performed By: #### H AJITH, CMP, BNP ####[facility] [address] [address]DrMichelle Trujillo PROTIMEon 11-02-2021 INR Coag (PPP) [Relative time] 0.99 {INR} Normal [facility] Comment on above: Performed By: #### P TT, PT #### [facility] [address] [address] [address] Felisa Trujillo INR GUIDELINES SEE BELOW Normal [facility] Comment on above: Result Comment: KAY RED INR: 2.0 - 3.0 CONDITIONS NOT LISTED BELOW 2.5 - 3.5 FOR PROSTHETIC HEART VALVE REPLACEMENT 2.5 - 3.5 RECURRENT THROMBOSIS Performed By: #### P TT, PT #### [facility] [address] [address] [address] Felisa Trujillo PT Coag (PPP) [Time] 10.7 s Normal 9.0-11.6 [facility] Comment on above: Performed By: #### P TT, PT #### [facility] [address] [place], [place] [address] Dr. Felisa Trujillo PTTon 11-02-2021 aPTT Coag (Bld) [Time] 25.9 s Normal 22.3-36.2 [facility] Comment on above: Performed By: #### P TT, PT #### [facility] [address] [address] [address] Felisa Trujillo TROPONIN, HIGH SENSITIVITYon 11-02-2021 HSTROP 8.7 pg/mL Normal 4.0-51.3 [facility] Comment on above: Result Comment: CUT- OFF POINTS HAVE BEEN ESTABLISHED BASED ON THE FOURTH UNIVERSAL DEFINITIONS OF MYOCARDIAL INFARCTION. THE UPPER REFERENCE LIMIT (URL) OF TROPONIN, DEFINED THE 99TH PERCENTILE OF cTnI DISTRIBUTION IN A REFERENCE POPULATION, HAS BEEN CONFIRMED THE DECISION THRESHOLD FOR [place] DIAGNOSIS. Performed By: #### H STROPN, CMP, BNP #### [facility] [address] [address] [address] Felisa Trujillo Covid-19 PCR (CVDTBH)on SARS-CoV-2 (COVID-19) RNA DUGLAS+probe Ql (Unsp spec) Not detected Normal NOT DETECTED [facility] Comment on above: Result Comment: This test is not yet approved or cleared by the [place] FDA. When there are no FDA-approved or cleared tests available, and other criteria are met, FDA can make tests available under an emergency access mechanism called an Emergency Use Authorization (EUA). The EUA for this test is supported by the [place] of Health and Human Service's (HHS's) declaration [...] SARS-CoV-2. Performed By: #### C VDTB #### [facility] [address] [place], [place] [address] Dr. Felisa Trujillo XR CHEST 2 Von [...] MEHNAZ SANTIAGO Date: 2021-09-02 14:39 Normal [facility] - AP Resultson 9 Lab - AP Results [id number]#1.00 OTGTIFF Normal [facility] Pathology Sendout Teston Pathology Send Out. See Report Normal [facility] Comment on above: Order Comment: left ring finger , cyst tendon sheath Performed By: #### 2 [id number] ####[facility] (DEFAULT)[address] [place] [address] Coding Summaryon 02-08-2019 Coding Summary CODING DATE: 02/08/2019 [facility] STATUS: Home PAYOR: Medicare MC APC DESCRIPTION 5112 Level 2 Musculoskeletal Procedures ADMIT DX: REASON FOR VISIT DX: M65.342 Trigger finger, left ring finger FINAL DX: PRINCIPAL: M65.342 Trigger finger, left ring finger SECONDARY: M67.442 Ganglion, left hand J44.9 Chronic obstructive pulmonary disease, unspecified PYMT PROC APC STAT DESCRIPTION DOCTOR NAME DATE 46331 3688 J1 Excision of lesion of Tulio Daquan And 02/04/2019 tendon sheath or joint capsule [...] Cassy Bradley Date Saved: 02/08/2019 11:52 am [facility] Consent Formson 02-05-2019 Consent Forms [id number]#1.00 [facility] Discharge Instructionson Discharge Instructions [id number]#1.00 [facility] History and Physicalon 02-05 History and Physical [id number]#1.00 [facility] MAGR Intraoperative Recordon 02-05-2019 MAGR Intraoperative Record MAGR Intra-Op Record Summary Primary Physician: Daquan Antunez DO Finalized Date/Time: 02/05/19 07:41:01 Pt. Name: SHEY OBRIEN /Sex: 1950 FEMALE Med Rec #: [id number] Physician: Daquan Antunez DO Financial #: [id number] Pt. Type: D Room/Bed: / Admit/Disch: 02/04/19 [...] Role Performed Surgeon - Primary Anesthesiologist of Die Mounter Record Time In 02/04/19 15:31:00 02/04/19 15:31:00 02/04/19 15:31:00 Time Out 02/04/19 16:08:00 02/04/19 16:08:00 02/04/19 16:08:00 Procedure Trigger Finger Release Trigger Finger Release Trigger Finger Release Last Modified By: Toshia Plascencia RN, Barbara RN Long, Barbara RN 02/04/19 16:16:05 02/04/19 16:16:05 02/04/19 16:16:05 Entry 4 Entry 5 Case Attendee Paloma Esparza Regina CST Role Performed Scrub Personnel Food Service Specialist Time In 02/04/19 15:31:00 02/04/19 15:31:00 Time [...] Flow Rate 15 L Last Modified By: Tsohia Plascencia RN 02/04/19 16:16:38 Case Comments Finalized By: Toshia Plascencia RN Document Signatures Signed By: Toshia Plascencia RN 02/04/19 16:21 Toshia Plascencia RN 02/04/19 16:16 Toshia Plascencia RN 02/05/19 07:38 Toshia Plascencia RN 02/05/19 07:41 Unfinalized History Date/Time Username Reason for Unfinalizing Freetext Reason for Unfinalizing 02/04/19 16:20 MHBLONG Modify Pick List 02/05/19 07:38 MHBLONG Modify [facility] List 02/05/19 07:40 MHBLONG Modify [facility] Medication Managementon 01-09 Medication Management [id number]#1.00 [facility] Provider Orderson 02-05-2019 Provider Orders [id number]#1.00 [facility] Anesthesia Noteon 02-04-2019 Anesthesia Note [...] Problems Chronic back pain / SNOMED CT 932149002 / Confirmed Former smoker / SNOMED CT 77125240 / Confirmed GERD (gastroesophageal reflux disease) / SNOMED CT 526646147 / Confirmed Scar tissue / SNOMED CT 441101606 / Confirmed Sleep apnea / SNOMED CT 882378352 / Confirmed Histories Family History: No family history items have been selected or recorded. Procedure history: Tonsillectomy (804912191). Epidural injection of lumbar spine using fluoroscopic guidance (1078844304). Social History Alcohol Assessment Use: Current. Beer, [...] rhythm. Review / Management Laboratory Results Plan [place] [employer] Anesthesiologists#(ASA ) physical status classification: [...] on: 02/04/2019 15:44 EDT] Alirio Mcclellan MD [facility] Inpatient Patient Summaryon 02-04-2019 [place] [address] Patient Discharge Instructions Name: SHEY OBRIEN : 52 Patient Address: [address] [place] [address] Primary Care Provider: Name: LATRELL JACK After you are discharged if you find you have any questions, please, call [phone] ext [phone] to speak to a nurse. Discharge Diagnosis: [...] contact the [facility] 30/01 Crisis Hotline -Text 4HOPE to 625103. If you received any narcotics, sedation, or [...] Instructions With: Address: When: Daquan Antunez [address], [address] [place] [address] Business (2) 02/12/2019 2:00 PM With: Address: When: LATRELL JACK [address] [place], [place] [id number] Business (1) Medications During the course of [...] -DO NOT lift heavy objects or rn embedded forcefully with the affected hand -DO NOT [...] or concerns, please call the office at [phone] or go to the emergency room -Follow [...] for Disease Control and Prevention March 2014 [facility] MAGR Postoperative Recordon 02-04-2019 MAGR Postoperative Record MAGR Phase II Record Summary Primary Physician: Daquan Antunez DO Finalized Date/Time: 02/04/19 17:11:50 Pt. Name: SHEY OBRIEN NORMAN OleaO.B./Sex: 1950 FEMALE Med Rec #: [id number] Physician: Daquan Antunez DO Financial #: [id number] Pt. Type: D Room/Bed: / Admit/Disch: 02/04/19 [...] Signed By: Jamil Garibay RN 02/04/19 17:11 [facility]2019 [facility] MAG[facility] Pre-Op Record Summary Primary Physician: Daquan Antunez DO Finalized Date/Time: 02/04/19 15:37:19 Pt. Name: SHEY OBRIEN NORMAN /Sex: 1950 FEMALE Med Rec #: [id number] Physician: Daquan Antunez DO Financial #: [id number] Pt. Type: D Room/Bed: / Admit/Disch: 02/04/19 [...] Signed By: Toshia Plascencia RN 02/04/19 15:37 [facility] Operative Report - Surgeon/P shalini 02-04-2019 [...] cc of 1% lidocaine injected locally by ny )transverse incision was made over the A1 [...] on: 02/04/2019 16:37 EDT] Daquan Antunez DO [facility] Patient Handouton 02-04-[address] [place]ARA POST OPERATIVE INSTRUCTIONS FOR FINGER SURGERY/MALLET FINGER REPAIR SURGEONS WRITTEN INSTRUTCTIONS:' -Keep your hand elevated above your elbow for the first 24 hours after surgery and apply an ice bag at intervals for the first 24 hours -Wiggle the unaffected fingers frequently while awake -DO NOT lift heavy objects or rn embedded forcefully with the affected hand -DO NOT [...] or concerns, please call the office at [phone] or go to the emergency room -Follow up as scheduled [facility] Progress Note - Nurseon 01-08 Progress Note - Nurse Spoke with pt regarding arrival time of 1145 and NPO status. Verbalized understanding. 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 Verbalized understanding. [Electronically Signed on: 02/01/2019 14:53 EDT] Kika Akers RN [Verified on: 02/01/2019 14:53 EDT] Kika Akers RN [facility] Coding Summaryon 01-29-2019 Coding Summary CODING DATE: 01/29/2019 [facility] STATUS: Home PAYOR: Medicare MC [...] Lili Cueto Date Saved: 01/29/2019 01:42 pm [facility] .Auto Diff 1on 01-28-2019 Auto [place] % 8 % Normal 1-12 [facility] Comment on above: Performed By: #### 7 [id number], [id number] #### [facility] (DEFAULT) [address] [place] [address] Baso Abs# 0.0 x10 Normal 0.0-0.2 [facility] Comment on above: Performed By: #### 7 [id number], [id number] #### [facility] (DEFAULT) [address] [place] [address]60 Basophils/100 WBC (Bld) 0.4 % Normal 0.2-2.0 [facility] Comment on above: Performed By: #### 7 [id number], [id number] #### [facility] (DEFAULT) [address] [place] [address]98 Eos Abs# 0.2 x10 Normal 0.0-0.4 [facility] Comment on above: Performed By: #### 7 [id number], [id number] #### [facility] (DEFAULT) [address] [place] [address] Eosinophils/100 WBC (Bld) 3.5 % Normal 0.9-4.0 [facility] Comment on above: Performed By: #### 7 [id number], [id number] #### [facility] (DEFAULT) [address] [place] [address]68 Lymphocytes (Bld) [#/Vol] 1.6 x10 Normal 1.3-2.9 [facility] Comment on above: Performed By: #### 7 [id number], [id number] #### [facility] (DEFAULT) [address] [place] [address] Lymphocytes/100 WBC (Bld) 32 % Normal 14-48 [facility] Comment on above: Performed By: #### 7 [id number], [id number] #### [facility] (DEFAULT) [address] [place] [address] [place] Abs# 0.4 x10 Normal 0.0-0.8 [facility] Comment on above: Performed By: #### 7 [id number], [id number] #### [facility] (DEFAULT) [address] [place] [address]802 Neut Abs# 2.8 x10 Normal 1.5-9.2 [facility] Comment on above: Performed By: #### 7 [id number], [id number] #### [facility] (DEFAULT) [address] [place] [address] 24086 Neutrophils/100 WBC (Bld) 56 % Normal 44-88 [facility] Comment on above: Performed By: #### 7 [id number], [id number] #### [facility] (DEFAULT) [address] [place] [address]652 CBC w/ Auto Diffon 9 Erythrocyte distribution width (RBC) [Ratio] 13.4 % Normal 11.5-15.0 [facility] Comment on above: Performed By: #### 7 [id number], [id number] #### [facility] (DEFAULT) [address] [place] [address]19 Hematocrit (Bld) [Volume fraction] 40.4 % Normal 33.7-40.4 [facility] Comment on above: Performed By: #### 7 [id number], [id number] #### [facility] (DEFAULT) [address] [place] [address]001 Hemoglobin (Bld) [Mass/Vol] 13.9 g/dL Normal 11.3-15.9 [facility] Comment on above: Performed By: #### 7 [id number], [id number] #### [facility] (DEFAULT) [address] [place] [address] 50153 Man Diff? Auto Normal [facility] Comment on above: Performed By: #### 7 [id number], [id number] #### [facility] (DEFAULT) [address] [place] [address] 87103 MCH (RBC) [Entitic mass] 31 pg Normal 24-34 [facility] Comment on above: Performed By: #### 7 [id number], [id number] #### [facility] (DEFAULT) [address] [place] [address]304 MCHC (RBC) [Mass/Vol] 34 g/dL Normal 26-37 [facility] Comment on above: Performed By: #### 7 [id number], [id number] #### [facility] (DEFAULT) [address] [place] [address]6072 MCV (RBC) [Entitic vol] 90 fL Normal 81-100 [facility] Comment on above: Performed By: #### 7 [id number], [id number] #### [facility] (DEFAULT) [address] [place] [address] 74746 Platelet mean volume (Bld) [Entitic vol] 10.3 fL High 6.3-10.2 [facility] Comment on above: Performed By: #### 7 [id number], [id number] #### [facility] (DEFAULT) [address] [place] [address] 31552 Platelets (Bld) [#/Vol] 199 x10 Normal 138-427 [facility] Comment on above: Performed By: #### 7 [id number], [id number] #### [facility] (DEFAULT) [address] [place] [address] 94639 RBC (Bld) [#/Vol] 4.47 x10 Normal 3.70-5.30 [facility] Comment on above: Performed By: #### 7 [id number], [id number] #### [facility] (DEFAULT) [address] [place] [address] 86189 WBC (Bld) [#/Vol] 5.1 x10 Normal 3.5-10.5 [facility] Comment on above: Performed By: #### 7 878483, [id number] #### [facility] (DEFAULT) [address] [place] [address] Vital Signs Date Time Vital Sign Value Performing Clinician Facility 04-24-2025 11:06-0400 Body height 162.56 cm Latrell Jack MD Work Phone: [facility] 04-24-2025 11:06-0400 Body mass index (BMI) [Ratio] 39.3 kg/m2 Latrell Jack MD Work Phone: [facility] 04-24-2025 11:06-0400 Body weight 104 kg Latrell Jack MD Work Phone: [facility] 04-10-2025 11:46-0400 Body height 162.56 cm Latrell Jack MD Work Phone: [facility] 04-10-2025 11:46-0400 Body mass index (BMI) [Ratio] 39.4 kg/m2 Latrell Jack MD Work Phone: [facility] 04-10-2025 11:46-0400 Body temperature 97.1 [degF] Latrell Jack MD Work Phone: [facility] 04-10-2025 11:46-0400 Body weight 104.32 kg Latrell Jack MD Work Phone: [facility] 04-10-2025 11:46-0400 Diastolic blood pressure 84 mm[Hg] Latrell Jack MD Work Phone: [facility] 04-10-2025 11:46-0400 Heart rate 108 /min Latrell Jack MD Work Phone: [facility] 04-10-2025 11:46-0400 Respiratory rate 24 /min Latrell Jack MD Work Phone: [facility] 04-10-2025 11:46-0400 SaO2% (BldA) [Mass fraction] 99 % Latrell Jack MD Work Phone: [facility] 04-10-2025 11:46-0400 Systolic blood pressure 164 mm[Hg] Latrell Jack MD Work Phone: [facility] 02-24-2025 11:00-0400 Body height 160 cm Latrell Jack MD Work Phone: [facility] 02-24-2025 11:00-0400 Body mass index (BMI) [Ratio] 40.03 kg/m2 Latrell Jack MD Work Phone: [facility] 02-24-2025 11:00-0400 Body temperature 97.11 [degF] Latrell Jack MD Work Phone: [facility] 02-24-2025 11:00-0400 Body weight 102.51 kg Latrell Jack MD Work Phone: [facility] 02-24-2025 11:00-0400 Diastolic blood pressure 76 mm[Hg] Latrell Jack MD Work Phone: [facility] 02-24-2025 11:00-0400 Heart rate 106 /min Latrell Jack MD Work Phone: [facility] 02-24-2025 11:00-0400 Respiratory rate 22 /min Latrell Jack MD Work Phone: [facility] 02-24-2025 11:00-0400 SaO2% (BldA) [Mass fraction] 95 % Latrell Jack MD Work Phone: [facility] 02-24-2025 11:00-0400 Systolic blood pressure 162 mm[Hg] Latrell Jack MD Work Phone: [facility] 02-03-2025 15:56-0400 Body height 160.02 cm Latrell Jack MD Work Phone: [facility] 02-03-2025 15:56-0400 Body mass index (BMI) [Ratio] 38.4 kg/m2 Latrell Jack MD Work Phone: [facility] 02-03-2025 15:56-0400 Body weight 98.42 kg Latrell Jack MD Work Phone: [facility] 02-03-2025 15:56-0400 Diastolic blood pressure 96 mm[Hg] Latrell Jack MD Work Phone: [facility] 02-03-2025 15:56-0400 Heart rate 90 /min Latrell Jack MD Work Phone: [facility] 02-03-2025 15:56-0400 SaO2% (BldA) [Mass fraction] 92 % Latrell Jack MD Work Phone: [facility] 02-03-2025 15:56-0400 Systolic blood pressure 164 mm[Hg] Latrell Jack MD Work Phone: [facility] 12-16-2024 15:53-0400 Body temperature 98.2 [degF] Latrell Jack MD Work Phone: [facility] 12-16-2024 15:53-0400 Heart rate 84 /min Latrell Jack MD Work Phone: [facility] 12-16-2024 15:53-0400 Respiratory rate 18 /min Latrell Jack MD Work Phone: [facility] 12-16-2024 15:53-0400 SaO2% (BldA) [Mass fraction] 99 % Latrell Jack MD Work Phone: [facility] 12-16-2024 14:15-0400 Diastolic blood pressure 72 mm[Hg] Latrell Jack MD Work Phone: [facility] 12-16-2024 14:15-0400 Systolic blood pressure 144 mm[Hg] Latrell Jack MD Work Phone: [facility] 12-16-2024 09:00-0400 Body weight 100.3 kg Latrell Jack MD Work Phone: [facility] 12-13-2024 14:41-0400 Body height 160.02 cm Latrell Jack MD Work Phone: [facility] 12-04-2024 13:39-0400 Body height 160 cm Latrell Jack MD Work Phone: [facility] 12-04-2024 13:39-0400 Body mass index (BMI) [Ratio] 38.97 kg/m2 Latrell Jack MD Work Phone: [facility] 12-04-2024 13:39-0400 Body temperature 97.3 [degF] Latrell Jack MD Work Phone: [facility] 12-04-2024 13:39-0400 Body weight 99.79 kg Latrell Jack MD Work Phone: [facility] 12-04-2024 13:39-0400 Diastolic blood pressure 92 mm[Hg] Latrell Jack MD Work Phone: [facility] 12-04-2024 13:39-0400 Heart rate 97 /min Latrell Jack MD Work Phone: [facility] 12-04-2024 13:39-0400 Respiratory rate 22 /min Latrell Jack MD Work Phone: [facility] 12-04-2024 13:39-0400 SaO2% (BldA) [Mass fraction] 97 % Latrell Jack MD Work Phone: [facility] 12-04-2024 13:39-0400 Systolic blood pressure 186 mm[Hg] Latrell Jack MD Work Phone: [facility] 08-27-2024 10:25-0500 Body height 160 cm Latrell Jack MD Work Phone: [facility] 08-27-2024 10:25-0500 Body mass index (BMI) [Ratio] 36.14 kg/m2 Latrell Jack MD Work Phone: [facility] 08-27-2024 10:25-0500 Body temperature 95.9 [degF] Latrell Jack MD Work Phone: [facility] 08-27-2024 10:25-0500 Body weight 92.53 kg Latrell Jack MD Work Phone: [facility] 08-27-2024 10:25-0500 Diastolic blood pressure 68 mm[Hg] Latrell Jack MD Work Phone: [facility] 08-27-2024 10:25-0500 Heart rate 50 /min Latrell Jack MD Work Phone: [facility] 08-27-2024 10:25-0500 Respiratory rate 22 /min Latrell Jack MD Work Phone: [facility] 08-27-2024 10:25-0500 SaO2% (BldA) [Mass fraction] 97 % Latrell Jack MD Work Phone: [facility] 08-27-2024 10:25-0500 Systolic blood pressure 140 mm[Hg] Latrell Jack MD Work Phone: [facility] 08-07-2024 14:04-0500 Body height 162.6 cm Katarzyna Miles VISITOR SERVICES COORDINATOR.SIGN LANGUAGE INTERPRETER Work Phone: [facility] 08-07-2024 14:04-0500 Body mass index (BMI) [Ratio] 34.84 kg/m2 Katarzyna Miles VISITOR SERVICES COORDINATOR.SIGN LANGUAGE INTERPRETER Work Phone: [facility] 08-07-2024 14:04-0500 Body temperature 97.59 [degF] Katarzyna Miles VISITOR SERVICES COORDINATOR.SIGN LANGUAGE INTERPRETER Work Phone: [facility] 08-07-2024 14:04-0500 Body weight 92.08 kg Katarzyna Miles VISITOR SERVICES COORDINATOR.SIGN LANGUAGE INTERPRETER Work Phone: [facility] 08-07-2024 14:04-0500 Diastolic blood pressure 72 mm[Hg] Katarzyna Miles VISITOR SERVICES COORDINATOR.SIGN LANGUAGE INTERPRETER Work Phone: [facility] 08-07-2024 14:04-0500 Heart rate 75 /min Katarzyna Miles VISITOR SERVICES COORDINATOR.SIGN LANGUAGE INTERPRETER Work Phone: [facility] 08-07-2024 14:04-0500 Systolic blood pressure 151 mm[Hg] Katarzyna Miles VISITOR SERVICES COORDINATOR.SIGN LANGUAGE INTERPRETER Work Phone: [facility] 07-23-2024 12:49-0500 Body height 160 cm Pac 5 Work Phone: [facility] 07-23-2024 12:49-0500 Body mass index (BMI) [Ratio] 37.45 kg/m2 Pac 5 Work Phone: [facility] 07-23-2024 12:49-0500 Body temperature 98.01 [degF] Pac 5 Work Phone: [facility] 07-23-2024 12:49-0500 Body weight 95.9 kg Pacc 5 Work Phone: [facility] 07-23-2024 12:49-0500 Diastolic blood pressure 73 mm[Hg] Pacc 5 Work Phone: [facility] 07-23-2024 12:49-0500 Heart rate 77 /min Pacc 5 Work Phone: [facility] 07-23-2024 12:49-0500 Respiratory rate 20 /min Pacc 5 Work Phone: [facility] 07-23-2024 12:49-0500 SaO2% (BldA) [Mass fraction] 99 % Pacc 5 Work Phone: [facility] 07-23-2024 12:49-0500 Systolic blood pressure 153 mm[Hg] Pacc 5 Work Phone: [facility] 05-30-2024 15:36-0500 Body height 160 cm Sandra Arcos HOST AND HOSTESS Work Phone: [facility] 05-30-2024 15:36-0500 Body mass index (BMI) [Ratio] 38.26 kg/m2 Sandra Umamor HOST AND HOSTESS Work Phone: [facility] 05-30-2024 15:36-0500 Body weight 97.98 kg Sandra Umamor HOST AND HOSTESS Work Phone: [facility] 05-30-2024 15:36-0500 Diastolic blood pressure 82 mm[Hg] Sandra Umamor HOST AND HOSTESS Work Phone: [facility] 05-30-2024 15:36-0500 Systolic blood pressure 138 mm[Hg] Sandra Gillmor HOST AND HOSTESS Work Phone: [facility] 05-15-2024 10:02-0500 Body height 160 cm Latrell Jack MD Work Phone: [facility] 05-15-2024 10:02-0500 Body mass index (BMI) [Ratio] 38.26 kg/m2 Latrell Jack MD Work Phone: [facility] 05-15-2024 10:02-0500 Body temperature 97.11 [degF] Latrell Jack MD Work Phone: [facility] 05-15-2024 10:02-0500 Body weight 97.98 kg Latrell Jack MD Work Phone: [facility] 05-15-2024 10:02-0500 Diastolic blood pressure 80 mm[Hg] Latrell Jack MD Work Phone: [facility] 05-15-2024 10:02-0500 Heart rate 78 /min Latrell Jack MD Work Phone: [facility] 05-15-2024 10:02-0500 Respiratory rate 22 /min Latrell Jack MD Work Phone: [facility] 05-15-2024 10:02-0500 SaO2% (BldA) [Mass fraction] 97 % Latrell Jack MD Work Phone: [facility] 05-15-2024 10:02-0500 Systolic blood pressure 148 mm[Hg] Latrell Jack MD Work Phone: [facility] 04-29-2024 10:55-0400 Body height 152.4 cm Xavier Boyd MD Work Phone: [facility] 04-29-2024 10:55-0400 Body mass index (BMI) [Ratio] 42.58 kg/m2 Xavier Boyd MD Work Phone: [facility] 04-29-2024 10:55-0400 Body temperature 98.49 [degF] Xavier Boyd MD Work Phone: [facility] 04-29-2024 10:55-0400 Body weight 98.88 kg Xavier Boyd MD Work Phone: [facility] 04-29-2024 10:55-0400 Diastolic blood pressure 65 mm[Hg] Xavier Boyd MD Work Phone: [facility] 04-29-2024 10:55-0400 Heart rate 90 /min Xavier Boyd MD Work Phone: [facility] 04-29-2024 10:55-0400 Systolic blood pressure 144 mm[Hg] Xavier Boyd MD Work Phone: [facility] 03-20-2024 13:23-0400 Diastolic blood pressure 81 mm[Hg] Wilson Sarmini [facility] 03-20-2024 13:23-0400 Heart rate 66 /min Wilson Sarmini [facility] 03-20-2024 13:23-0400 Mean blood pressure 112 mm[Hg] Wilson Sarmini [facility] 03-20-2024 13:23-0400 Respiratory rate 15 /min Wilson Sarmini [facility] 03-20-2024 13:23-0400 SaO2% (BldA) [Mass fraction] 94 % Wilson Sarmini [facility] 03-20-2024 13:23-0400 Systolic blood pressure 173 mm[Hg] Wilson Sarmini [facility] 03-20-2024 13:15-0400 Diastolic blood pressure 78 mm[Hg] Wilson Sarmini [facility] 03-20-2024 13:15-0400 Heart rate 64 /min Wilson Sarmini [facility] 03-20-2024 13:15-0400 Mean blood pressure 105 mm[Hg] Wilson Sarmini [facility] 03-20-2024 13:15-0400 Respiratory rate 13 /min Wilson Sarmini [facility] 03-20-2024 13:15-0400 SaO2% (BldA) [Mass fraction] 96 % Wilson Sarmini [facility] 03-20-2024 13:15-0400 Systolic blood pressure 159 mm[Hg] Wilson Sarmini [facility] 03-20-2024 13:05-0400 Diastolic blood pressure 76 mm[Hg] Wilson Sarmini [facility] 03-20-2024 13:05-0400 Heart rate 64 /min Wilson Sarmini [facility] 03-20-2024 13:05-0400 Mean blood pressure 99 mm[Hg] Wilson Sarmini [facility] 03-20-2024 13:05-0400 Respiratory rate 12 /min Wilson Sarmini [facility] 03-20-2024 13:05-0400 SaO2% (BldA) [Mass fraction] 96 % Wilson Sarmini [facility] 03-20-2024 13:05-0400 Systolic blood pressure 145 mm[Hg] Wilson Sarmini [facility] 03-20-2024 12:58-0400 Body temperature 97.16 [degF] Wilson Sarmini [facility] 03-20-2024 12:50-0400 Respiratory rate 15 /min Wilson Sarmini [facility] 03-20-2024 12:45-0400 Respiratory rate 18 /min Wilson Sarmini [facility] 03-20-2024 11:14-0400 Blood Pressure Location Wilson Ameyamini [facility] 03-20-2024 11:14-0400 Body temperature 97.7 [degF] Wilson Ameyamini [facility] 03-20-2024 11:14-0400 Respiratory rate 18 /min Wilson Ameyamini [facility] 03-07-2024 11:21-0400 Body height 160 cm Diomedes Amilcar DO Work Phone: [facility] 03-07-2024 11:21-0400 Body mass index (BMI) [Ratio] 44.46 kg/m2 Diomedes Amilcar DO Work Phone: [facility] 03-07-2024 11:21-0400 Body weight 113.85 kg Diomedes Amilcar DO Work Phone: [facility] 03-07-2024 11:21-0400 Diastolic blood pressure 88 mm[Hg] Diomedes Amilcar DO Work Phone: [facility] 03-07-2024 11:21-0400 Heart rate 84 /min Diomedes Amilcar DO Work Phone: [facility] 03-07-2024 11:21-0400 SaO2% (BldA) [Mass fraction] 94 % Diomedes Amilcar DO Work Phone: [facility] 03-07-2024 11:21-0400 Systolic blood pressure 146 mm[Hg] Diomedes Amilcar DO Work Phone: [facility] 02-26-2024 09:12-0400 Blood Pressure Location Wilson Ameyamini [facility] 02-26-2024 09:12-0400 Diastolic blood pressure 81 mm[Hg] Wilson Ameyamini [facility] 02-26-2024 09:12-0400 Heart rate 66 /min Wilson Sarmini [facility] 02-26-2024 09:12-0400 Respiratory rate 16 /min Wilson Sarmini [facility] 02-26-2024 09:12-0400 Systolic blood pressure 131 mm[Hg] Wilson Sarmini [facility] 10-13-2023 09:42-0400 Diastolic blood pressure 80 mm[Hg] Pa NILL [facility] 10-13-2023 09:42-0400 Heart rate 69 /min Pa NILL [facility] 10-13-2023 09:42-0400 Mean blood pressure 102 mm[Hg] Pa NILL [facility] 10-13-2023 09:42-0400 Respiratory rate 15 /min Pa NILL [facility] 10-13-2023 09:42-0400 SaO2% (BldA) [Mass fraction] 97 % Pa NILL [facility] 10-13-2023 09:42-0400 Systolic blood pressure 146 mm[Hg] Pa NILL [facility] 10-13-2023 09:32-0400 Diastolic blood pressure 76 mm[Hg] Pa NILL [facility] 10-13-2023 09:32-0400 Heart rate 67 /min Pa NILL [facility] 10-13-2023 09:32-0400 Mean blood pressure 94 mm[Hg] Pa NILL [facility] 10-13-2023 09:32-0400 Respiratory rate 20 /min Pa NILL [facility] 10-13-2023 09:32-0400 SaO2% (BldA) [Mass fraction] 95 % Pa NILL [facility] 10-13-2023 09:32-0400 Systolic blood pressure 129 mm[Hg] Pa NILL [facility] 10-13-2023 09:27-0400 Diastolic blood pressure 71 mm[Hg] Pa NILL [facility] 10-13-2023 09:27-0400 Heart rate 70 /min Pa NILL [facility] 10-13-2023 09:27-0400 Mean blood pressure 92 mm[Hg] Pa NILL [facility] 10-13-2023 09:27-0400 Respiratory rate 15 /min Pa NILL [facility] 10-13-2023 09:27-0400 SaO2% (BldA) [Mass fraction] 96 % Pa NILL [facility] 10-13-2023 09:27-0400 Systolic blood pressure 134 mm[Hg] Pa NILL [facility] 10-13-2023 09:17-0400 Body temperature 97.16 [degF] Pa NILL [facility] 10-13-2023 09:10-0400 Respiratory rate 16 /min Pa NILL [facility] 10-13-2023 09:05-0400 Respiratory rate 16 /min Pa NILL [facility] 10-13-2023 08:03-0400 Body temperature 97.34 [degF] Pa NILL [facility] 08-11-2023 09:53-0500 Body height 160 cm Latrell Jack MD Work Phone: [facility] 08-11-2023 09:53-0500 Body mass index (BMI) [Ratio] 40.39 kg/m2 Latrell Jack MD Work Phone: [facility] 08-11-2023 09:53-0500 Body temperature 97.11 [degF] Latrell Jack MD Work Phone: [facility] 08-11-2023 09:53-0500 Body weight 103.42 kg Latrell Jack MD Work Phone: [facility] 08-11-2023 09:53-0500 Diastolic blood pressure 70 mm[Hg] Latrell Jack MD Work Phone: [facility] 08-11-2023 09:53-0500 Heart rate 94 /min Latrell Jack MD Work Phone: [facility] 08-11-2023 09:53-0500 SaO2% (BldA) [Mass fraction] 97 % Latrell Jack MD Work Phone: [facility] 08-11-2023 09:53-0500 Systolic blood pressure 140 mm[Hg] Latrell Jack MD Work Phone: [facility] Healthcare Encounters Encounter Date Encounter Type Care Provider Facility Start: 04-24-2025 End: 04-24-2025 ambulatory Latrell Jack MD Work Phone: [facility] Work Phone: Start: 04-24-2025 End: 04-24-2025 Patient encounter procedure Elmer Suh DO -[facility] Work Phone: Start: 04-23-2025 Registered Recurring Will Kim MD [facility] Start: 04-23-2025 ambulatory Erik Izquierdo acility:[facility] Start: 04-23-2025 End: 04-23-2025 ambulatory KATARZYNA MILES Facility:[facility] Start: 04-10-2025 End: 04-10-2025 ambulatory Latrell Jack MD Work Phone: [facility] Work Phone: Start: 04-10-2025 End: 04-10-2025 Patient encounter procedure Latrell Jack MD -[facility] Work Phone: Start: 03-04-2025 End: 03-04-2025 Clinisync Result Encounter Latrell Jack MD Work Phone: [facility] External Department Unsolicited Start: 03-04-2025 End: 03-04-2025 Clinisync Result Encounter Latrell Jack MD Work Phone: [facility] External [facility] Unsolicited Start: 02-27-2025 End: 02-27-2025 Clinisync Result Encounter Latrell Jack MD Work Phone: [facility] External Department Unsolicited Start: 02-27-2025 End: 02-27-2025 [...] 02-03-2025 ambulatory Latrell Jack MD Work Phone: [facility] Work Phone: Start: 02-03-2025 End: 02-03-2025 Patient encounter procedure Diomedes Fitzgerald DO -[facility] Work Phone: Start: 01-21-2025 Registered Recurring Will Kim MD -[facility] Start: 12-30-2024 End: 12-30-2024 ambulatory Talat Arguello MD Facility:[facility] Start: 12-13-2024 Non-patient / Non-visit Latrell kendall MD Work Phone: [facility] Work Phone: Start: 12-12-2024 End: 12-16-2024 Evaluation and management of inpatient Latrell Jack MD Work Phone: [facility] Work Phone: Start: 12-12-2024 End: 12-12-2024 Clinisync Result Encounter Generic External Data Provider [facility] External Department Unsolicited Start: 12-12-2024 End: 12-12-2024 Clinisync Result Encounter Generic External Data Provider [facility] External Department Unsolicited Start: 12-12-2024 End: 12-12-2024 Emergency department patient visit Elmer Kohli Facility:[facility] Start: 12-04-2024 End: 12-04-2024 Office outpatient visit [...] 10-29-2024 Refill Latrell Jack MD Work Phone: [facility] Comment on above: Chronic obstructive pulmonary disease, unspecified COPD type (CMS/HCC); Primary insomnia Start: 09-26-2024 End: 09-26-2024 ambulatory SANDRA ARCOS Not Available Start: 08-27-2024 End: 08-27-2024 Bamboo flowsheet Latrell Jack MD Work Phone: [facility] Start: 08-27-2024 End: 08-27-2024 Bamboo flowsheet Latrell Jack MD Work Phone: [facility] Start: 08-27-2024 End: 08-27-2024 Clinisync Result Encounter Latrell aJck MD Work Phone: [facility] External Department Unsolicited Start: 08-27-2024 End: 08-27-2024 ambulatory LATRELL JACK Not Available Start: 08-27-2024 End: 08-27-2024 Patient encounter procedure Latrell Jack MD Work Phone: [facility] Healthcare Work Phone: Start: 08-27-2024 End: 08-27-2024 Postop follow up visit related to original px Latrell Jack MD Work Phone: [facility] Comment on above: Medicare annual [...] End: 08-07-2024 Patient encounter procedure Katarzyna Snyder APRN.CNP Work Phone: General Surgery Comment on above: Postoperative visit (Primary Dx) Start: 08-07-2024 End: 08-07-2024 ambulatory KATARZYNA SNYDER Facility:[facility] Start: 07-31-2024 End: 07-31-2024 Telephone encounter Latrell Jack MD Work Phone: [facility] Start: 07-30-2024 End: 07-30-2024 Refill Latrell Jack MD [facility] Comment on above: Primary insomnia Start: 07-24-2024 End: 07-26-2024 Evaluation and management of inpatient XAVIER BOYD Facility:[facility] Start: 07-23-2024 End: 07-23-2024 ambulatory JAMIL DELACRUZ Facility:[facility] Start: 07-23-2024 End: 07-23-2024 Clinisync [...] Anesthesia Start: 07-23-2024 End: 07-23-2024 Anesthesia consultation [facility] Main 5 Work Phone: Pre Anesthesia Comment [...] Start: 07-23-2024 End: 07-23-2024 Preprocedural examination done Pac Main 5 Work Phone: [facility] Work Phone: Start: 07-23-2024 Encounter for other preprocedural examination XAVIER BOYD [facility] Start: 07-23-2024 End: 07-23-2024 ambulatory XAVIER BOYD Facility:[facility] Start: 07-23-2024 Encounter for other preprocedural examination XAVIER BOYD [facility] Start: 06-29-2024 End: 07-15-2024 Telephone encounter Sandra Arcos [employer] AND HOSTESS [facility] Start: 06-24-2024 End: 06-24-2024 ambulatory Talat Arguello MD Facility:[facility] Start: 06-13-2024 End: 06-13-2024 Telephone encounter Latrell Jack MD Work Phone: [facility] Comment on above: Medication Question Start: 06-10-2024 End: 06-10-2024 ambulatory Talat Arguello MD Facility:[facility] Start: 05-30-2024 End: 05-30-2024 Office outpatient visit 25 minutes Sandra Arcos NP Work Phone: [facility] [address] Comment on above: Memory loss (Primary Dx); Severe episode of recurrent major depressive disorder, 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); Generalized anxiety disorder (CMS/HCC); EDWIN on CPAP; Other chronic pain; Other insomnia Start: 05-30-2024 End: 05-30-2024 ambulatory SANDRA ARCOS Not Available Start: 05-30-2024 End: 05-30-2024 Bamboo flowsheet Sandra Arcos [employer] AND HOSTESS Work Phone: [facility] [address] Start: 05-30-2024 End: 05-30-2024 Bamboo flowsheet Sandra Arcos H[employer] AND HOSTESS Work Phone: [facility] [address] Start: 05-27-2024 End: 05-27-2024 ambulatory Talat Arguello MD Facility:[facility] Start: 05-15-2024 End: 05-15-2024 Office outpatient visit 25 minutes Latrell Jack MD Work Phone: [facility] Comment on above: Essential hypertensi on, [...] 05-06-2024 End: 05-06-2024 ambulatory Talat [facility]guello MD [facility] Start: 05-04-2024 End: 05-06-2024 ambulatory Xavier Boyd MD Work Phone: [facility] Comment on above: 07.24.24 Cure (Lap P araesophageal Hernia Repair/EGD 4 hours los 1) Start: 05-04-2024 End: 05-06-2024 Preprocedural examination done Xavier Boyd MD Work Phone: [facility] Start: 04-29-2024 End: 04-29-2024 ambulatory XAVIER BOYD Facility:[facility] Start: 04-29-2024 End: 04-29-2024 Office outpatient new 45 minutes Xavier Boyd MD Work Phone: General Surgery Comment on above: Paraesophageal herni a (Primary Dx) Start: 04-22-2024 End: 04-22-2024 Telephone encounter Danielle Cummings MA General Surgery Start: 04-15-2024 End: 04-15-2024 ambulatory Talat Arguello MD Facility:[facility] Start: 04-11-2024 End: 04-11-2024 Patient encounter procedure Mao Morrow PhD Work Phone: [facility] Comment on above: Memory loss (Primary Dx); Word finding difficulty; EDWIN on CPAP; Other insomnia; Other chronic pain; Generalized anxiety disorder (CMS/HCC); Severe episode of recurrent major depressive disorder, without psychotic features (HCC) ([facility]) Start: 04-11-2024 End: 04-11-2024 ambulatory LATRELL JACK Not Available Start: 03-26-2024 End: 03-26-2024 Patient encounter procedure Mao Morrow PhD Work Phone: [facility] Comment on above: Memory loss (Primary Dx); Word finding difficulty; EDWIN on CPAP; Other insomnia; Other chronic pain; Generalized anxiety disorder ([facility]) Start: 03-26-2024 End: 03-26-2024 ambulatory MAO MORROW Not Available Start: 03-26-2024 End: 03-26-2024 Bamboo flowsheet Mao Morrow PhD Work Phone: [facility] Start: 03-26-2024 End: 03-26-2024 Bamboo flowsheet Mao Morrow PhD Work Phone: [facility] Start: 03-26-2024 End: 03-26-2024 ambulatory Wilson Talal Sarmini Facility:[facility] Start: 03-26-2024 End: 03-26-2024 Patient encounter procedure Wilson Talal Sarmini [facility] Start: 03-25-2024 End: 03-25-2024 ambulatory DIOMEDES FITZGERALD Not Available Start: 03-20-2024 End: 03-20-2024 ambulatory Wilson Talal Sarmini Facility:[facility] Start: 03-20-2024 End: 03-20-2024 Patient encounter procedure Wilson Talal Sarmini [facility] Start: 03-07-2024 End: 03-07-2024 Bamboo flowsheet Diomedes Amilcar DO [facility] Start: 03-07-2024 End: 03-07-2024 Bamboo flowsheet Diomedes Amilcar DO Work Phone: [facility] [address] Start: 03-07-2024 End: 03-07-2024 Clinisync [...] 02-26-2024 End: 02-26-2024 ambulatory Wilson Talal Sarmini Facility:[facility] Start: 02-26-2024 End: 02-26-2024 Patient encounter procedure [facility] Ameyaalberto [facility] Start: 02-13-2024 ambulatory Pa NILL Facility:[facility] Start: 10-13-2023 End: 10-13-2023 ambulatory Pa R NILL Facility:[facility] Start: 10-13-2023 End: 10-13-2023 Patient encounter procedure Pa R NILL [facility] Start: 09-12-2023 End: 09-12-2023 ambulatory Pa R NILL Facility:[facility] Start: 09-05-2023 ambulatory Pa NILL Facility:[facility] Start: 08-11-2023 Bamboo flowsheet [...] Encounter for preprocedural laboratory examination MARNIE Fuentes [facility] Start: 09-07-2021 End: 09-07-[address] LATRELL JACK Facility:[facility] Start: 09-07-2021 End: 09-07-2021 Encounter for preprocedural laboratory examination DR LATRELL JACK Facility:[facility] Start: 09-03-2021 Encounter for preprocedural cardiovascular examination MARNIE Fuentes [facility] Start: 09-02-2021 End: 09-03-[address] [...] MD Work Phone: Start: 07-23-2024 Antibody screen XAVIER BOYD Comment on above: Order Comment: Specimen Type: BLOOD SPEC IMEN Ordering Facility: [facility] Address: [address] [place] [address] Performed By: #### 2 4321-2, HSTNT, 71408-2, 2777-1 #### [facility] CLIA [id number] [address] [place] [address] STATES [facility] Start: 07-23-2024 [facility] CBC W AUTO DIFF BLD Generic External Data Provider Start: 03-20-2024 Esophagogastroduodenoscopy Dafne Ameyacas george Start: 03-07-2024 ALL FOLIC ACID Diomedes Fitzgerald [...] for malign ant neoplasm of colon [facility] Start: 07-26-2027 Diabetes Screening Diabetes Screenin [facility] Start: 07-23-2027 Diabetes Screening Diabetes Screenin [facility] Start: 09-21-2026 RSV Vaccine (1 - 1-d ose 75+ series) RSV Vaccine (1 - 1-dose 75+ series) [facility] Start: 02-27-2026 Screening for malign ant neoplasm of breast Mammogram [facility] Start: 08-07-2025 End: 09-06-2025 CT Chest WO contrast CT CHEST WO IVCON Radiology Routine Postoperative visit Expected: 08/07/2025, Expires: 09/06/2025 Work Phone: Comment on above: Expected: 08/07/2025 , Expires: 09/06/2025 Start: 04-29-2025 End: 04-29-2025 Patient encounter procedure 04/29/2025 1:15 PM EDT Office Visit [facility] [address] [place] [phone] Latrell Jack MD [address] [place] [phone] [facility] Start: 04-10-2025 Patient referral [facility] Work Phone: Start: 03-10-2025 Influenza vaccination Influenza Vacc ine (#1) [facility] Start: 02-24-2025 End: 02-24-2026 CT Chest for screening WO contrast CT lung screening low dose Imaging Routine Former smoker Expected: 02/24/2025, Expires: 02/24/2026 [facility] Comment on above: Expected: 02/24/2025 , Expires: 02/24/2026 Start: 02-24-2025 End: 04-26-2026 MG Breast - bilateral Screening Bilateral screening mammogram Imaging Routine Breast cancer screening by mammogram Expected: 02/24/2025, Expires: 04/26/2026 [facility] Work Phone: Comment on above: Expected: 02/24/2025 , Expires: 04/26/2026 Start: 02-24-2025 End: 02-24-2025 Patient encounter procedure [facility] Comment on above: Arrived Start: 02-03-2025 End: 02-03-2025 Patient encounter procedure 02/03/2025 4:00 PM EDT Office Visit [facility] [address] [place] [phone] Diomedes Fitzgerald DO [address] [place] [address] [facility] Start: 12-30-2024 End: 12-30-2024 Patient encounter procedure 12/30/2024 1:00 PM EDT Office Visit [facility] [address] [place] [phone] Diomedes Fitzgerald DO [address] [place] [address] [facility] Start: 12-16-2024 [facility] Start: 12-12-2024 Referral to Electrical Machinist [facility] Start: 12-12-2024 Hospital admission [facility] Start: 11-27-2024 Screening for malign ant neoplasm of breast Mammogram [facility] Start: 09-26-2024 End: 09-26-2024 [facility] [address] [facility] Start: 08-27-2024 End: 08-27-2025 Basic metabolic 1998 panel - Serum or Plasma Basic metabolic panel Lab Routine Essential hypertension, benign (CMS/HCC) Expected: 08/27/2024 (Approximate), Expires: 08/27/2025 [facility] Comment on above: Expected: 08/27/2024 (Approximate), Expires: 08/27/2025 Start: 08-27-2024 End: 08-27-2025 CBC W Auto Differential panel - Blood CBC and differential Lab Routine Encounter for long-term (current) use of medications Expected: 08/27/2024 (Approximate), Expires: 08/27/2025 [facility] Comment on above: Expected: 08/27/2024 (Approximate), Expires: 08/27/2025 Start: 08-27-2024 End: 08-27-2025 Hemoglobin A1c/Hemoglobin.total in Blood Hemoglobin A1c Lab Routine Prediabetes Expected: 08/27/2024 (Approximate), Expires: 08/27/2025 [facility] Work Phone: Comment on above: Expected: 08/27/2024 (Approximate), Expires: 08/27/2025 Start: 08-27-2024 End: 08-27-2025 Hepatic function 2000 panel - Serum or Plasma Hepatic function panel Lab Routine Encounter for long-term (current) use of medications Expected: 08/27/2024 (Approximate), Expires: 08/27/2025 [facility] Comment on above: Expected: 08/27/2024 (Approximate), Expires: 08/27/2025 Start: 08-27-2024 End: 08-27-2025 Lipid 1996 panel - Serum or Plasma Lipid panel Lab Routine Dyslipidemia (CMS/HCC) Expected: 08/27/2024 (Approximate), Expires: 08/27/2025 [facility] Comment on above: Expected: 08/27/2024 (Approximate), Expires: 08/27/2025 Start: 08-27-2024 End: 08-27-2025 Thyrotropin [Units/volume] in Serum or Plasma TSH Lab Routine Class 2 severe obesity due to excess calories with serious comorbidity and body mass index (BMI) of 36.0 to 36.9 in adult (CMS/HCC) Expected: 08/27/2024 (Approximate), Expires: 08/27/2025 [facility] Comment on above: Expected: 08/27/2024 (Approximate), Expires: 08/27/2025 Start: 08-16-2024 End: 08-16-2024 Patient encounter procedure 08/16/2024 9:00 AM EST Office Visit [facility] [address] [place] [address] Latrell Jack MD [address] [place] [address] [facility] Start: 07-24-2024 End: 07-24-2024 Admission to same day surgery center 07/24/2024 10:51 AM EST - 07/24/2024 3:42 PM EST Surgery Admitting [address] [place], [place] [address]Xavier Rodas MD [address] [place] [phone] LAPAROSCOPIC RPR PARAESOPHAGEAL HERNIA W/O FUNDOPLASTY W/ [...] Directive Discussion Advance Directive Discussion [facility] Start: 06-29-2024 End: 10-29-2024 aPTT in Platelet poor plasma by Coagulation assay ACTIVATED PARTIAL THROMBOPLASTIN TIME Lab Routine Preoperative examination Paraesophageal hernia Abnormal coagulation profile Expected: 06/29/2024, Expires: 10/29/2024 [facility] Comment on above: Expected: 06/29/2024 , Expires: 10/29/2024 Start: 06-29-2024 End: 10-29-2024 CBC W Auto Differential panel - Blood COMPLETE BLOOD COUNT AND DIFFERENTIAL Lab Routine Preoperative examination Paraesophageal hernia Expected: 06/29/2024, Expires: 10/29/2024 [facility] Comment on above: Expected: 06/29/2024 , Expires: 10/29/2024 Start: 06-29-2024 End: 10-29-2024 Comprehensive metabolic 2000 panel - Serum or Plasma COMPREHENSIVE METABOLIC PANEL Lab Routine Preoperative examination Paraesophageal hernia Expected: 06/29/2024, Expires: 10/29/2024 [facility] Comment on above: Expected: 06/29/2024 , Expires: 10/29/2024 Start: 06-29-2024 End: 10-29-2024 PT panel - Platelet poor plasma by Coagulation assay PROTHROMBIN TIME Lab Routine Preoperative examination Paraesophageal hernia Abnormal results of liver function studies Expected: 06/29/2024, Expires: 10/29/2024 [facility] Comment on above: Expected: 06/29/2024 , Expires: 10/29/2024 Start: 06-29-2024 End: 10-29-2024 TYPE AND SCREEN,30 DAY TYPE AND SCREEN,30 DAY Blood Bank Routine Preoperative examination Paraesophageal hernia Expected: 06/29/2024, Expires: 10/29/2024 [facility] Comment on above: Expected: 06/29/2024 , Expires: 10/29/2024 Start: 05-30-2024 End: 05-30-2024 Patient encounter procedure [facility] [address] [facility] Comment on above: Arrived Start: 05-15-2024 End: 05-15-2024 Patient encounter procedure 05/15/2024 10:00 AM EST Office Visit [facility] [address] [place] [address] Latrell Jack MD [address] [place] [address] [facility] Start: 04-29-2024 End: 04-29-2024 Patient encounter procedure 04/29/2024 11:00 AM EDT Office Visit General Surgery [address] [address] Xavier Boyd MD [address] [place], [place] [phone] Hiatal Hernia General Surgery Comment on above: Hiatal Hernia Start: 04-11-2024 End: 04-11-2024 Patient encounter procedure 04/11/2024 9:00 AM EDT [facility] [address] [phone] [facility] Start: 03-26-2024 End: 03-26-2024 Patient encounter procedure 03/26/2024 2:30 PM EDT Office Visit [facility] [address] [phone] Mao Morrow, PhD [address] [place], [place] [phone] Arrived [facility] Comment on above: Arrived Start: 03-25-2024 End: 03-25-2024 Professional / ancillary services management 03/25/2024 8:45 AM EDT Ancillary Procedure [facility] [place] [address] [place] [phone] [facility] [place] [address] Start: 03-19-2024 End: 03-19-2024 Patient encounter procedure 03/19/2024 2:00 PM EDT Office Visit [facility] [address] [address] [place] [phone] Mao Morrow, PhD [address] [place] [address] [facility] Start: 03-10-2024 Covid-19 Vaccine ( season) Covid-19 Vaccine ( season) [facility] Start: 03-10-2024 Covid-19 Vaccine ( season) Covid-19 Vaccine ( season) [facility] Start: 03-10-2024 Influenza vaccination Influenza Vacc ine (#1) [facility] Start: 03-07-2024 End: 03-07-2025 Cobalamin (Vitamin B12) [Mass/volume] in Serum or Plasma Vitamin B12 Lab Routine Memory loss Expected: 03/07/2024 (Approximate), Expires: 03/07/2025 [facility] Comment on above: Expected: 03/07/2024 (Approximate), Expires: 03/07/2025 Start: 03-07-2024 End: 03-07-2025 EEG awake or drowsy EEG awake or drowsy Neurology Routine Memory loss Expected: 03/07/2024 (Approximate), Expires: 03/07/2025 [facility] Work Phone: Comment on above: Expected: 03/07/2024 (Approximate), Expires: 03/07/2025 Start: 03-07-2024 End: 03-07-2025 Folate [Mass/volume] in Serum or Plasma Folate Lab Routine Memory loss Expected: 03/07/2024 (Approximate), Expires: 03/07/2025 [facility] Comment on above: Expected: 03/07/2024 (Approximate), Expires: 03/07/2025 Start: 03-07-2024 End: 03-07-2025 MR Brain WO contrast MR brain wo contrast Imaging Routine Memory loss Expected: 03/07/2024, Expires: 03/07/2025 [facility] Comment on above: Expected: 03/07/2024 , Expires: 03/07/2025 Start: 03-07-2024 End: 03-07-2025 Thyrotropin [Units/volume] in Serum or Plasma TSH Lab Routine Memory loss Expected: 03/07/2024 (Approximate), Expires: 03/07/2025 [facility] Comment on above: Expected: 03/07/2024 (Approximate), Expires: 03/07/2025 Start: 03-07-2024 End: 03-07-2024 Patient encounter procedure 03/07/2024 11:30 AM EDT Office Visit [facility] [address] [place] [address] Diomedes Fitzgerald DO [address] [place] [address] 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CC[facility] Comment on above: 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CMS /HCC) Start: 02-09-2024 End: 02-09-2024 Patient encounter procedure 02/09/2024 9:45 AM EDT Office Visit [facility] [address] [place] [address] Latrell Jack MD [address] [place] [address] [facility] Start: 08-11-2023 End: 08-11-2024 Basic metabolic 1998 panel - Serum or Plasma Basic metabolic panel Lab Routine Encounter for long-term (current) use of medications Expected: 08/11/2023 (Approximate), Expires: 08/11/2024 [facility] Comment on above: Expected: 08/11/2023 (Approximate), Expires: 08/11/2024 Start: 08-11-2023 End: 08-11-2024 CBC W Auto Differential panel - Blood CBC and differential Lab Routine Encounter for long-term (current) use of medications Expected: 08/11/2023 (Approximate), Expires: 08/11/2024 [facility] Comment on above: Expected: 08/11/2023 (Approximate), Expires: 08/11/2024 Start: 08-11-2023 End: 08-11-2024 Hemoglobin A1c measurement Hemoglobin A1c Lab Routine Morbid obesity due to excess calories (CMS/HCC) Expected: 08/11/2023 (Approximate), Expires: 08/11/2024 [facility] Work Phone: Comment on above: Expected: 08/11/2023 (Approximate), Expires: 08/11/2024 Start: 08-11-2023 End: 08-11-2024 Hepatic function 2000 panel - Serum or Plasma Hepatic function panel Lab Routine Encounter for long-term (current) use of medications Expected: 08/11/2023 (Approximate), Expires: 08/11/2024 [facility] Comment on above: Expected: 08/11/2023 (Approximate), Expires: 08/11/2024 Start: 08-11-2023 End: 08-11-2024 Lipid 1996 panel - Serum or Plasma Lipid panel Lab Routine Dyslipidemia (CMS/HCC) Expected: 08/11/2023 (Approximate), Expires: 08/11/2024 [facility] Comment on above: Expected: 08/11/2023 (Approximate), Expires: 08/11/2024 Start: 08-11-2023 End: 08-11-2024 Thyrotropin [Units/volume] in Serum or Plasma TSH Lab Routine Morbid obesity due to excess calories (CMS/HCC) Expected: 08/11/2023 (Approximate), Expires: 08/11/2024 [facility] Comment on above: Expected: 08/11/2023 (Approximate), Expires: 08/11/2024 Start: 08-11-2023 End: 08-11-2023 Patient encounter procedure 08/11/2023 9:45 AM EST Office Visit [facility] [address] [place] [phone] Latrell Jack MD [address] [place] [phone] Arrived [facility] Comment on above: Arrived Start: 07-10-2023 Advance Directive Discussion Advance Directive Discussion [facility] Start: 03-10-2023 Influenza vaccination Influenza Vacc ine (#1) [facility] Start: 09-21-2016 Screening for osteoporosis Bone Density Screening [facility] Start: 09-21-2001 Shingrix Vaccine (1 of 2) Shingrix Vaccine (1 of 2) [facility] Start: 09-21-1996 Diabetes Screening Diabetes Screenin g [facility] Start: 09-21-1996 Lipid panel Lipid Screening [facility] Start: 09-21-1996 Screening for malign ant neoplasm of colon [facility] Start: 1991 Screening for malign ant neoplasm of breast [facility] Start: 09-21-1981 Zoledronic acid therapy Alpha- 1 Antitrypsin Deficiency Screening [facility] Start: 09-21-1970 Urine microalbumin profile DTaP,Tdap,Td Vaccine (1 - Tdap) [facility] Start: 09-21-1969 Annual PCP Team Supervisor Molding julio Disease Visit Annual PCP Team Chronic Disease Visit [facility] Start: 09-21-1969 Anxiety Screening Anxiety Screening [facility] Start: 09-21-1969 BP Controlled (<130/80) BP Controlle d (<130/80) [facility] Start: 09-21-1969 Depression Screening Depression Scre ening [facility] Start: 09-21-1969 Hepatitis C screening Hepatitis C Sc reening [facility] Start: 09-21-1969 Spirometry Spirometry [facility] Start: 1950 Medicare Annual Well ness (AWV) Medicare Annual Wellness (AWV) [facility] Start: 1950 Screening for malign ant neoplasm of colon [facility] Start: 1951 Screening for malign ant neoplasm of lung Lung Cancer Screening Shared Decision Making [facility] End: 05-04-2025 ECG COMPLETE ECG COMPLETE ECG Routine Preoperative examination Paraesophageal hernia 1 Occurrences starting 05/06/2024 until 05/04/2025 [facility] Comment on above: 1 Occurrences starti ng 05/06/2024 until 05/04/2025 Laps rpr paraesphgl hrna incl fundplsty w/mesh LAPAROSCOPIC RPR PARAESOPHAGEAL HERNIA W/O FUNDOPLASTY W/ MESH Preoperative examination [facility]es[facility] Patient Education Depression in adults - Discharge instructions [facility] Instructions Know your Meds [facility] Work Phone: Patient referral [facility] Work Phone: REFER FOR ADMIT INTERVIEW REFER FOR ADMIT INTERVIEW Procedures Routine Preoperative examination Paraesophageal hernia Ordered: 05/06/2024 Work Phone: Comment on above: Ordered: 05/06/2024 End: 08-23-2025 XR Chest PA and Lateral XR CHEST 2V FRONTAL/LAT Radiology Routine Pre-op evaluation Chronic obstructive pulmonary disease, unspecified COPD type (HCC) CHENEY (dyspnea on exertion) 1 Occurrences starting 07/23/2024 until 08/23/2025 Work Phone: Comment on above: 1 Occurrences starti ng 07/23/2024 until 08/23/2025 XR Chest PA and Lateral XR CHEST 2V FRONTAL/LAT Radiology Routine Pre-op evaluation Chronic obstructive pulmonary disease, unspecified COPD type (HCC) CHENEY (dyspnea on exertion) 07/23/2024 1:58 PM EST [facility] Immunizations Immunization Date Immunization Notes Care Provider Fa [facility] 05-15-2024 influenza virus vacc ine, unspecified formulation Latrell Jack MD Work Phone: [facility] 04-09-2023 influenza virus vacc ine, unspecified formulation Pa WEBB [facility] 05-03-2022 SARS-CoV-2 (COVID-19 ) [id number] Pa WEBB [facility] 05-03-2022 influenza virus vacc ine, unspecified formulation Latrell Jack MD Work Phone: [facility] 11-25-2021 pneumococcal conjuga te vaccine, 13 valent Diomedes Fitzgerald DO Work Phone: [facility] 04-12-2021 influenza virus vacc ine, unspecified formulation Wilson Sarmini [facility] 04-12-2021 SARS-CoV-2 (COVID-19 ) mRNA BNT-162b2 vax Pa NILL [facility] Comment on above: Result Comment: 2023: [id number] 09-14-2020 SARS-CoV-2 (COVID-19 ) mRNA BNT-162b2 vax Pa NILL [facility] Comment on above: Result Comment: 2023: [id number] 08-27-2020 SARS-CoV-2 (COVID-19 ) mRNA BNT-162b1 vax Pa NILL [facility] Comment on above: Result Comment: 2023: [id number] 06-16-2020 influenza virus vacc ine, unspecified formulation Wilson Sarmini [facility] 05-16-2019 influenza virus vacc ine, unspecified formulation Wilson Sarmini [facility] 05-16-2019 pneumococcal polysaccharide vaccine, 23 valent Wilson Sarmini [facility] 05-12-2018 influenza virus vacc ine, unspecified formulation Wilson Sarmini [facility] 01-31-2018 pneumococcal conjuga te vaccine, 13 valent Wilson Sarmini [facility] 05-10-2016 influenza virus vacc ine, unspecified formulation Wilson Sarmini [facility] 04-16-2015 influenza virus vacc ine, unspecified formulation Dafne Spears [facility] Payers Date Payer Category Payer Self-pay 2016 Private Health Insurance [id number] 2016 Medicare [id number] 2016 Unknown 1959 Medicare [id number] 1959 Private Health Insurance [id number] 1951 Unknown [id number] 2.16.84 0.1.638486.3.579.2.593 1951 Unknown [id number] 2.16.84 0.1.525601.3.579.2.593 1951 Unknown [id number] 2.16.84 0.1.714361.3.579.2.593 1951 Unknown [id number] 2.16.84 0.1.845285.3.579.2.593 1951 Unknown [id number] 2.16.84 0.1.505941.3.579.2.593 1951 Unknown [id number] 2.16.84 0.1.163496.3.579.2.593 1951 Unknown [id number] 2.16.84 0.1.468324.3.579.2.593 1951 Unknown [id number] 2.16.8 40.1.359516.3.579.2.727 1951 Unknown [id number] 2.16.8 40.1.621945.3.579.2.727 1951 Unknown [id number] 2.16.8 40.1.747037.3.579.2.727 1951 Unknown [id number] 2.16.8 40.1.404316.3.579.2.727 1951 Unknown [id number] 2.16.8 40.1.194806.3.579.2.727 1951 Unknown [id number] 2.16.8 40.1.097458.3.579.2.727 1951 Unknown [id number] 2.16.8 40.1.329977.3.579.2.727 1951 Unknown [id number] 2.16.8 40.1.651675.3.579.2.727 1951 Unknown [id number] 2.16. 840.1.051251.3.579.2.196 1951 Unknown [id number] 2.16. 840.1.661289.3.579.2.196 1951 Unknown [id number] 2.16. 840.1.746458.3.579.2.196 1951 Unknown [id number] 2.16. 840.1.008651.3.579.2.196 1951 Unknown [id number] 2.16. 840.1.739853.3.579.2.196 1951 Unknown [id number] 2.16. 840.1.797937.3.579.2.196 1951 Unknown [id number] 2.16.8 40.1.241596.3.579.2.1259 1951 Unknown [id number] 2.16.84 0.1.091346.3.579.2.1259 1951 Unknown [id number] 2.16.84 0.1.022578.3.579.2.1259 1951 Unknown [id number] 2.16.84 0.1.186801.3.579.2.1259 1951 Unknown [id number] 2.16.84 0.1.890295.3.579.2.1259 1951 Unknown [id number] 2.16.84 0.1.214436.3.579.2.9 1951 Unknown [id number] 2.16.84 0.1.291540.3.579.2.9 1951 Unknown [id number] 2.16.84 0.1.876223.3.579.2.1259 1951 Unknown [id number] 2.16.84 0.1.362397.3.579.2.1259 1951 Unknown [id number] 2.16.84 0.1.534113.3.579.2.1259 Unknown [id number] 2.16.8 40.1.499902.3.579.2.531 Unknown [id number] 2.16.8 40.1.986890.3.579.2.531 Social History Date Type Detail Facility Start: 08-05-2023 End: 04-10-2025 Tobacco smoking status CTIS Ex-smoker [facility] Start: 07-10-1967 End: 01-08-2012 History of tobacco use Current smoker [facility] Start: 07-10-1967 End: 01-08-2012 History of tobacco use Cigarette Smoker [facility] Start: 08-05-2023 End: 02-02-2024 Cigarettes smoked current (pack per day) - Reported 1 [facility] Start: 08-05-2023 End: 02-02-2024 Tobacco use panel [facility] Start: 1950 Sex Assigned At Not on file [facility] Start: 08-11-2023 End: 05-30-2024 Tobacco use and exposure Smokeless tobacco non-user [facility] Tobacco smoking status Never [facility] General Surgery [place] Start: 03-07-2024 End: 02-24-2025 Alcoholic beverage intake Current drinker of alcohol (finding) [facility] Are you now , , , , never or living with a partner? Never [facility] How often to you hav e [...] per day [facility] Tobacco smoking stat [facility] Tobacco smoking consumption unknown [facility] Start: 04-23-2024 Gender identity Identifies as female gender (finding) [facility] Start: 07-23-2024 End: 08-07-2024 Alcoholic beverage intake Ex-drinker (finding) [facility] Start: 07-23-2024 Tobacco Comment Age 16 - 60, 1 /2 - 2 PPD, quit while at 1 PPD [facility] How often do you nee d to have someone help you when you read instructions, pamphlets, or other written material from your doctor or pharmacy [SILS] Sometimes [facility] Sexual Orientation [facility] Start: 09-04-2018 End: 12-16-2024 Sex Female (finding) [facility] Start: 1950 Sex Assigned At Female F [facility] Medical Equipment Procedure Code Equipment Code Equipment Original Text Equipment Identifier Dates [place] Thk1.65mm P tfe 4x.5in Cardiovascular Sterile - [id number] Start: 07-24-2024 Goals Date Patient Goal Desired Activity /State Functional Status Date Assessment Result Facility 12-16-2024 Functional status Patient at Baseline [facility] Work Phone: 03-20-2024 Functional Status N/A [facility] 02-26-2024 Functional Status N/A [facility] 10-13-2023 Functional Status N/A [facility] Mental Status Date Assessment Result Facility 12-16-2024 Cognitive function Cognitive Sta tus Patient at Baseline [facility] Work Phone: Clinical Notes 09-10-2021 to 04-23-2025 Latrell Jack MD - 02/24/2025 4:01 PM William Jack MD - 02/24/2025 4:01 PM William Jack MD - 02/24/2025 4:01 PM William Jack MD - 02/24/2025 4:00 PM EDT Note Date & Type Note Facility 04-23-2025 Note HNO ID: [id number] Author: KATARZYNA SNYDER APRN.SIGN LANGUAGE INTERPRETER Service: ? Author Type: Nurse Practitioner Type: Progress Notes Filed: 04/23/2025 12:10 Note Text: [facility] Clinic Date: April 23, 2025 Shey Obrien 73 year old female CHIEF COMPLAINT: Patient presents for 1 year follow up. HPI: Here for 1 year follow up after laparoscopic paraesophageal hernia repair on 07/24/[address] Boyd. Shey is a 74-year-old female with severe EDWIN and a history of paraesophageal hernia repair (07/24) presenting for a 1-year follow-up. Since her last visit in July, Shey reports a 20 lb weight gain, with her current weight at 203 lbs. She reports frequent loud belching, indigestion, and a sore throat following episodes of belching. She also experiences a slight burning sensation after belching, which resolves spontaneously. She is currently taking famotidine and pantoprazole, though she is nearly out of pantoprazole and does not plan to refill it. She reports feeling full quickly and experiences pain when eating too quickly, which requires her to pause eating. She denies dysphagia, regurgitation, or issues with her surgical incisions. She [...] EXAM: BP 157/79 Pulse 85 Temp 36.1 ?C (97 ?F) (Temporal) Ht 165.1 cm (5' 5 ) Wt 103.4 kg (228 lb) BMI 37.94 kg/m? General: No acute distress. Abd: No issues [...] meals, and consider adding a fiber supplement such as Metamucil to help manage symptoms. - Discussed [...] which included preparing to see the patient, [id number] patient care, completing clinical documentation, obtaining and/or reviewing separately obtained history, performing a medically appropriate examination, and counseling and educating the patient/family/caregiver. Katarzyna Snyder, MSN, SIGN LANGUAGE INTERPRETER April 23, 2025 [facility] 04-23-2025 Note HNO ID: [id number] Author: OLGA LIDIA BLAKE MA Service: ? Author Type: Cutter Wet Machine Type: Progress Notes Filed: 04/23/2025 12:10 Note Text: What is the reason for your visit today? Est Who is your referring physician? Dr. Snyder Are you having poor oral intake? NO Have you had unintentional weight loss of 15 lbs/7 Kg in the last 3-6 months? YES Bowels: regular Wound: clean AND dry Temperature: No Drains: No [facility] 02-24-2025 History of Present illness Narrative Associated Problem(s): [...] Bilateral screening mammogram documented in this encounter [facility] 02-03-2025 Evaluation note Diagnosis Onset Date Resolution Anxiety acute February 03 3:29pm Major depressive disorder, recurrent, moderate acute February 03, 2025 3:29pm Memory loss acute February 03 3:29pm Primary insomnia acute January 3:29pm Pseudodementia acute February 03, 2025 3:29pm Obstructive sleep apnea syndrome noneactive February 03, 2025 3:29pm Primary osteoarthritis, left shoulder acute April 10 11:27am [facility] Work Phone: 1(117) 189-265007-28-2025 Evaluation note* Diagnosis Onset Date Resolution Status [...] 10 11:27am Tinnitus acute April 10 11:27am [facility] Work Phone: 1(810) 290-377706-09-2025 [place] [address] Discharge Summary Signed Patient: Shey Obrien MR#: [id number] : 1950 Acct:[id number] Age/Sex: 74 / F Adm Date: 5 Loc: Room: [address] [place] [address]: Erik Kim MD Copies to: [...] boyfriend Employment: retired former [employer] worker in [employer] Relationships: close, supportive relationship with family in [place] [facility]. Patient was treated with Remeron. She tolerated the medication without any problems and did not report any side effects. Check gradual provide of her symptoms during her hospitalization. Her sleep also improved as well and she felt that the Remeron was helpful with that as well. She did not exhibitany behavior concerning for suicidality. She did not have any conflict with peers or staff. She attended occasional groups and seemed to be in better spirits as time went on. On the day of discharge,she reported that she was doing good. She [...] Instructions: Important Contact Information You can call [facility] at [phone] any timeday or night if you have emergent questions or question regarding discharge instructions. If at anytime you are feeling an increase inyour psychiatric symptoms, call your physician or behavioral healthcare provider. If any time you have thoughts of harming yourself or others contact one of the following: Call 8 (available 30/01) Crisis Text Line (available 30/01) text 4HOPE to 042889 [facility] Hope Line (available 8 a.m. Midnight) call 518-045-AIAI (2302) Instructions: Depression in adults - Discharge instructions, [facility] DC Instructions, Know your Meds [...] Up: LEIGH Gilmore [Outside] - 12/17/24 (manager collection will call you tomorrow, if you miss [...] Tra Hobson MD 12/16/24 1131 Signed By: 12/16/24 1546 [facility]06-08-2025 Progress note Author Erik aguilar [facility] Note Date/Time December 15, 2024 10:52 am [facility] [address] [place] [address] Psychiatry Progress Note Signed Patient: Shey Obrien MR#: [id number] : 1950 Acct:[id number] Age/Sex: 74 / F Adm Date: 5 Loc: Room: [address] [place] [address] Type : ADM IN Attending Dr: Erik [...] signed by DO MALICK Tee> 12/15/24 0943 [facility] Work Phone: 1(451) 638-522006-08-2025 [place] [address] Psychiatry Progress Note Signed Patient: Shey Obrien MR#: [id number] : 1950 Acct:[id number] Age/Sex: 74 / F Adm Date: 5 Loc: Room: [address] [place] [address] Type : ADM IN Attending Dr: Erik [...] 0941 Signed By: 12/15/24 1052 12/15/24 0943 [facility]06-07-2025 Progress note Author Erik aguilar [facility] Note Date/Time December 14, 2024 2:23p m [facility] [address] [place] [address] Psychiatry Progress Note Signed Patient: Shey Obrien MR#: [id number] : 1950 Acct:[id number] Age/Sex: 74 / F Adm Date: 5 Loc: 1S Room: [address] [place] [address] Type : ADM IN Attending Dr: Erik [...] discharge. Documented By: Erik Kim MD 5 1303 Signed By: <Electronically signed by Erik Kim MD> 12/14/24 1428 [facility] Work Phone: 1(338) 446-323906-07-2025 [place] [id number] Psychiatry Progress Note Signed Patient: Shey Obrien MR#: [id number] : 1950 Acct:[id number] Age/Sex: 74 / F Adm Date: 5 Loc: Room: [address] [place] [address] Type : ADM IN Attending Dr: Erik [...] Kim MD 5 1301 Signed By: 12/14/24 [facility]3 [facility]06-06-2025 History and physical note Author Erik aguilar [facility] Note Date/Time December 13, 2024 10:06 am [facility] [address] [place] [address] Psychiatry H&P Signed Patient: Shey Obrien MR#: [id number] : 1950 Acct:[id number] Age/Sex: 74 / F Adm Date: 5 Loc: 1S Room: [address] [place] [address] Type: ADM IN Attending Dr: Erik Kim MD Copies to: MD aLtrell Romero MD~ Date of Service: 12/13/2024 HPI [...] boyfriend Employment: retired former [employer] worker in [employer] Relationships: close, supportive relationship with family [...] bilaterally. CNXII: Tongue protrusion midline [facility] Medical History (Updated 12/13/24 @ 10:06 by [...] depressive disorder, recurrent, moderate: Plan Admit to 1S for management of depression and to ensure [...] <Electronically signed by Erik Kim MD> 12/13/[address] [place] [address] Work Phone: 1(508) 204-251106-06-2025 [place] [address] Psychiatry H&P Signed Patient: Shey Obrien MR#: [id number] : 1950 Acct:[id number] Age/Sex: 74 / F Adm Date: 5 Loc: Room: [address] [place] [address] Type: ADM IN Attending Dr: Erik Kim [...] boyfriend Employment: retired former [employer] worker in [employer] Relationships: close, supportive relationship with family [...] bilaterally. CNXII: Tongue protrusion midline [facility] Medical History (Updated 12/13/24 @ 10:06 by [...] MD 5 0841 Signed By: 12/13/24 1006 [facility]06-05-2025 Chief complaint+Reason for visit Narrative* Chief Complaint Admit Date Mental Evaluation. December 12, 2024 6:22p m Mental Evaluation. December 13, 2024 8:41a m Reason for Visit Admit Date Major depressive disorder, recurrent, mo derate December 12, 2024 6:22pm [facility] Work Phone: 1(102) 511-483406-05-2025 Chief complaint+Reason for visit Narrative * Chief Complaint Admit Date Mental Evaluation. December 12, 2024 6:22p m Mental Evaluation. December 13, 2024 8:41a m Reason for Visit Admit Date Major depressive disorder, recurrent, mo derate December 12, 2024 6:22pm Primary insomnia February 03, 2025 3:29 pm Obstructive sleep apnea syndrome February 032024 3:29pm [facility] Work Phone: 1(874) 619-292506-05-2025 Evaluation note* Diagnosis Onset Date Resolution Status Admit Date Major depressive disorder, recurrent, moderate acute December 12 6:22pm [facility] Work Phone: 1(178) 446-457206-05-2025 Evaluation note* Diagnosis Onset Date Resolution Status Admit Date Major depressive disorder, recurrent, moderate acute December 12 6:22pm Primary insomnia acute January 3:29pm Obstructive sleep apnea syndrome noneactive February 03, 2025 3:29pm [facility] Work Phone: 1(164) 630-801506-05-2025 Evaluation + Plan noteExtracted from: Title:ED Note Author:Elmer Kohli DO Date: Suicidal ideation (R45.851: Suicidal ideations) Orders: CBC w/ Auto Diff Communication Order Comprehensive Metabolic Panel Consult to Mental Health Drug Screen Urine ECG 12 Lead Adult eGFR Ethanol Level UA with Cult Rflx Urine Culture Diagnostic Tests Pending * Urine Culture 12/12/24 [facility] 05-28-2025 History of Present illness Narrative* Latrell Jack MD - 12/04/2024 2:25 PM EDTAssociated Problem(s): Degenerative lumbar spinal stenosis Recent flare and increased pain. Treat with prednisone. Use robaxin for spasms and norco PRN. Follow up with pain management next week as scheduled. * Latrell Jack MD - 12/04/2024 2:24 PM EDTAssociated Problem(s): COPD (chronic obstructive pulmonary disease) ([facility]) SOB stable and continue albuterol [...] This Visit COPD (chronic obstructive pulmonary disease) ([facility]/HCC) SOB stable and continue albuterol nebulized PRN. Script for new machine to patient. Degenerative lumbar spinal stenosis - Primary Recent flare and increased pain. Treat with prednisone. Use robaxin for spasms and norco PRN. Follow up with pain management next week as scheduled. Relevant Medications methocarbamol (Robaxin) 750 MG tablet predniSONE (Deltasone) 50 MG tablet HYDROcodone-acetaminophen ([place]) 5-325 MG tablet documented in this encounterThe Rehabilitation [id number] History of Present illness Narrative* Latrell Jack MD - 08/27/2024 11:05 AM ESTAssociated Problem(s): 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[facility]) Follow with neurology. * Latrell Jack MD [...] 11:03 AM ESTAssociated Problem(s): Essential hypertension, benign ([facility]) BP controlled and monitor PRN. * Latrell Jack MD - 08/27/2024 11:03 AM ESTAssociated Problem(s): COPD (chronic obstructive pulmonary disease) ([facility]) Symptoms stable and continue spiriva. Use albuterol PRN. * Latrell Jack MD - 08/27/2024 11:03 AM ESTAssociated Problem(s): Class 2 severe obesity due to excess calories with serious comorbidity and body mass index (BMI) of 36.0 to 36.9 in adult ([facility]) Weight loss indicated. * Latrell [...] Items Addressed This Visit Essential hypertension, benign ([facility]/HCC) BP controlled and monitor PRN. Relevant Orders Basic metabolic panel COPD (chronic obstructive pulmonary disease) (CMS/HCC) Symptoms stable and continue spiriva. Use albuterol PRN. Dyslipidemia ([facility]/HCC) Relevant Orders Lipid panel Encounter [...] Discussed daily Aspirin therapy. documented in this encounterThe Rehabilitation [id number] NoteHNO ID: [id number] Author: KATARZYNA SNYDER APRN.SKYLA Service: ? Author Type: Nurse Practitioner Type: Progress Notes Filed: 08/07/2024 15:37 Note Text: [facility] Clinic Date: [...] completed prior to appointment Katarzyna Snyder, MSN, SIGN LANGUAGE INTERPRETER [facility] History of Present illness Narrative* Katarzyna Snyder APRN.SKYLA - 08/07/2024 2:14 PM EST [facility] Clinic Date: [...] completed prior to appointment Katarzyna Snyder, MSN, SIGN LANGUAGE INTERPRETER August 07, 2024 * Olga Lidia Blake [...] Drains: No documented in [facility] NoteHNO ID: [id number] Author: OLGA LIDIA BLAKE MA Service: ? Author Type: Cutter Wet Machine Type: Progress Notes Filed: 08/07/2024 15:37 Note Text: What is the reason for your visit today? Post op Who is your referring physician? Dr. Snyder Are you having poor oral intake? NO Have you had unintentional weight loss of 15 lbs/7 Kg in the last 3-6 months? NO Bowels: constipated, diarrhea, or regular Wound: clean AND dry Temperature: No Drains: [facility]01-22-2025 Telephone encounter Note* Telephone Encounter - Latrell Jack MD - 07/31/2024 2:25 PM EST [facility] to [facility]. [facility] [id number] Miscellaneous Notes* Telephone Encounter - aLtrell Jack MD - 07/31/2024 2:25 PM EST [...] or the pharmacy. an documented in this encounterThe Rehabilitation [id number] Telephone encounter Note* Telephone Encounter - GEO DICK - 07/31/2024 2:20 PM EST Insurance won't cover the extended release ambien. The [facility] [id number] Telephone encounter Note* Telephone Encounter - Sandra Matias - 07/31/2024 1:13 PM EST Patient called and stated that her zolpidem refill was denied. She would like you to call her or the pharmacy. an The Rehabilitation [id number] NoteHNO ID: [id number] Author: DERREK MARSHALL RN Service: Care Management [...] Obrien DATE: July 26, 2024 TIME: 9:22 [facility]01-16-2025 NoteHNO ID: [id number] Author: DERREK MARSHALL RN Service: Care Management Author Type: Registered Nurse Type: Care Mgt Initial Assessment Filed: 07/25/2024 14:30 Note Text: CARE MANAGEMENT: ASSESSMENT AND DISCHARGE PLAN SERVICE DATE: July 25, 2024 SERVICE TIME: 2:29 PM PCP: Latrell Jack MD Primary Contact: Extended Emergency Contact Information Primary Emergency Contact: Alexandria Cramer Address: [address] [place] [address] Relation: Relative Admission Status: Inpatient Insurance Provider: MEDICARE A AND B Discharge Planning requested by: Per Department Practice Potential Transition Plans To Be Determined Advance Directives Current Advance Directive: None Facilities Engineering Manager Attempted to Assist with AD Completion: Yes Action: Education Provided [place] Explained: [place] Given: No Reason Not [...] Obrien DATE: July 25, 2024 TIME: 2:29 [facility]01-16-2025 NoteHNO ID: [id number] Author: DERREK MARSHALL RN Service: Care Management Author Type: Registered Nurse Type: Care Mgt Progress Note Filed: 07/25/2024 14:28 Note Text: CARE MANAGEMENT: ASSESSMENT AND DISCHARGE PLAN SERVICE DATE: July 25, 2024 SERVICE TIME: 2:28 PM PCP: Latrell Jack MD Primary Contact: Extended Emergency Contact Information Primary Emergency Contact: Alexandria Cramer Address: [address] [place] [address] Relation: Relative Admission Status: Inpatient Insurance Provider: MEDICARE A AND B Discharge Planning requested by: Per Department Practice Potential Transition Plans To Be Determined Advance Directives Current Advance Directive: None Facilities Engineering Manager Attempted to Assist with AD Completion: Yes Action: Education Provided [place] Explained: [place] Given: No Reason Not [...] Obrien DATE: July 25, 2024 TIME: 2:27 [facility]01-16-2025 NoteHNO ID: [id number] Author: YAN MOSER, ? Service: General Surgery [...] and Airways Line Duration Peripheral 07/24/24 0900 [facility] Right Hand 20 Gauge <1 day Peripheral 07/24/24 1111 Left Hand 18 Gauge <1 day SURGERY/PROCEDURE: Procedure(s) and Anesthesia Type: * LAPAROSCOPIC RPR PARAESOPHAGEAL HERNIA W/O FUNDOPLASTY W/ MESH - General [facility]01-15-2025 NoteHNO ID: [id number] Author: NENA SEPULVEDA MD Service: General Surgery [...] MD SERVICE DATE: 07/24/24 SERVICE TIME: 7:09 [facility]01-15-2025 NoteHNO ID: [id number] Author: TRIP GRAY RN Service: Nursing Author Type: Registered Nurse Type: Progress Notes Filed: 07/24/2024 18:55 Note Text: [id number] Paged [id number] to notify that patient came up from PACU with a rdz in but no active rdz order. Requesting order to be placed.[facility] 07-24-2024 NoteHNO ID: [id number] Author: TRIP GRAY RN Service: Nursing Author Type: Registered Nurse Type: Progress Notes Filed: 07/24/2024 18:25 Note Text: Admission/Transfer Note PATIENT NAME: Shey Obrien Patient Location: [place] [address]/[facility] Room: [place] [address] Patient admitted from PACU via bed in stable condition. Actions taken: Patient oriented to room, call light function, prescribed activities, Patient rights, and Quiet at night. Patient belongings with patient. This note was completed by: Trip GrayAshtabula [facility] 07-24-2024 NoteHNO ID: [id number] Author: BETTY ALLEN APRN.POKER PROP PLAYER Service: ? Author Type: Nurse Advertising Solicitor Type: Anesthesia Procedure Notes Filed: 07/24/2024 11:23 Note Text: ANESTHESIOLOGY PROCEDURE NOTE Airway General Information Procedure Start Time/Medication Administration: 07/24/2024 11:09 AM Procedure End Time: 07/24/2024 11:09 AM Patient location during procedure: OR Timeout Performed Pre-procedure: timeout performed Consent Obtained: Yes Patient identity confirmed: arm band, care team foreman and patient Staffing POKER PROP PLAYER: Betty Allen APRN.POKER PROP PLAYER Performed by: ELIZABETH Indications and Patient Condition Indications for airway management: anesthesia Preoxygenated: yes anesthesia circuit Patient position: reverse Trendelenburg, sniffing and ramp Method: rapid sequence Final Airway Details Final airway type: endotracheal airway Final Endotracheal Airway: ETT Cuffed: yes Successful intubation technique: video laryngoscopy Devices used: Ravel Law Endotracheal tube insertion site: oral Blade size: #3 ETT size (mm): 7.0 Measured from: lips Measurement (cm): 21 Placement verified by: capnometry Cormack-Lehane Classification: grade I - full view of glottis Number of attempts at approach: 1 Airway not difficult SIGNATURE: Betty Allen APRN.CRNA PATIENT NAME: Shey Obrien DATE: July 24, 2024 TIME: 11:23 AM [facility]: [id number] NoteHNO ID: [id number] Author: BETTY ALLEN APRN.ELIZABETH Service: ? Author Type: Nurse Advertising Solicitor Type: Anesthesia Procedure Notes Filed: 07/24/2024 11:23 Note Text: ANESTHESIOLOGY PROCEDURE NOTE PIV General Information Procedure Start Time/Medication Administration: 07/24/2024 11:11 AM Procedure End Time: 07/24/2024 11:11 AM Patient Location: OR Staffing POKER PROP PLAYER: Betty Allen APRN.POKER PROP PLAYER Performed by: ELIZABETH Preparation Sterility Preparation: hand [...] July 24, 2024 TIME: 11:22 AM CSN: [id number] [facility]01-15-2025 NoteHNO ID: [id number] Author: ABDELRAHMAN HE MD Service: General Surgery Author Type: Resident Type: Plan of Care Filed: 07/24/2024 10:30 Note Text: Patient consented for study? Yes STUDY TITLE: MVP Trial: Mesh Vs Pledgets for repair of paraesophageal hernia repair: a randomized, blinded, parallel group trial IRB NO.: #[id number] INSULATION ESTIMATOR: Willard Ramirez MD COORDINATOR/Research Nurse/Telemarketing Supervisor: Abdelrahman He MD Phone/email: [phone], [email or web address] Consenting was performed in person prior [...] CRITERIA Yes No 1. The patient lacks [place] language fluency or cannot understand the consent form/study procedures [] [x] 2. The patient is [] [x] 3. The patient has a BMI >45 [] [x] 4. The patient has undergone previous hiatal hernia repair [] [x] 5. The patient will undergo paraesophageal hernia repair with a concurrent bariatric procedure to reduce stomach volume [] [x][facility] 07-23-2024 History of Present illness Narrative* [...] PATIENT PRESENTS WITH AN IMPLANTABLE OR ATTACHED COACH: No RADIOLOGY DEPARTMENT: General X-ray: Exam(s) Completed: Chest X-Ray PERIPHERAL IV DATA: Not applicable SIGNED BY: RT Liu(R) July 23, 2024 1:59 PM documented in [facility] encounterPrem[facility]-2025 NoteHNO ID: [id number] Author: HUMERA POSEY RT(R) Service: Radiology Author [...] PATIENT PRESENTS WITH AN IMPLANTABLE OR ATTACHED COACH: No RADIOLOGY DEPARTMENT: General X-ray: Exam(s) Completed: Chest X-Ray PERIPHERAL IV DATA: Not applicable SIGNED BY: RT Liu(R) July 23, 2024 1:59 [facility]01-14-2025 Instructions* Patient Instructions* Jamil Delacruz PA-C - 07/23/2024 1:27 PM EST Images from the original note were not included. [facility]est[facility] PATIENT PREOPERATIVE INSTRUCTIONS Dr. Boyd has scheduled you for your procedure at this surgery center: [facility] [place] Scheduling Office: [phone] --[address] [place] [address]. Please read below carefully for your personalized [...] office. If you are currently using a trzc-ajy-jftc injectable or oral medication for diabetes or [...] Procedures: - YOU MUST HAVE A RESPONSIBLE REFUSE COLLECTOR SUPERVISOR TAKE YOU HOME. A PBX INSTALLER OR CARPENTER LABOR SUPERVISOR CANNOT BE MADE A RESPONSIBLE REFUSE COLLECTOR SUPERVISOR. - We recommend that a responsible person [...] call the Monday before. Your surgeon s investigation clerk will tell you what time to call the office. - If you have not reached the departmental investigation clerk by 5 P.M., call [phone] after 5 P.M. the day before your surgery. Please be aware that emergency situations arise, which may delay or change your surgical time. If this happens, we will notify you as soon as possible and regret any inconvenience. If you already have an Advance Directive, please fax a copy to [phone] or email to for it to be [...] Delacruz PA-C documented in this encounter[facility] History and physical note * Jamil Delacruz [...] pain, CHF, congenital heart defect, DVT/PE, recent IL and murmur/valvular heart disease. GI: See HPI. [...] 404 QTC Calculation (Bazett) 423 Calculated P Branford 32 Calculated R Branford 14 Calculated T Branford 54 Impression NORMAL SINUS RHYTHM NORMAL ECG No results found for this or any previous visit (from the past 58197 hour(s)). Instructions Given to Patient: Instructions located in the after visit summary. Patient given verbal and written preop instructions and voices comprehension and compliance. SIGNATURE: Jamil Delacruz PA-C PATIENT NAME: Shey Obrien DATE: July 23, 2024 TIME: 1:07 PM PAGER/CONTACT #: [facility]01-14-2025 History and physical note* Jamil Delacruz PA-C - 07/23/2024 1:07 PM EST Images from the original note were not included. [place] [facility] Pre-Anesthesia Consultation Clinic HISTORY [...] Imm Admin: COVID-19 vaccine, age 12+ yr ([facility]) 05/03/2022 Imm Admin: COVID-19 vaccine, age 12+ yr, bivalent (PFIZER-BIONTECH) 04/12/2021 Imm Admin: COVID-19 original vaccine, age 12+ yr, monovalent (tado- BIONTInsideAxis™ - PURPLE TOP) Only the first 3 [...] pain, CHF, congenital heart defect, DVT/PE, recent IL and murmur/valvular heart disease. GI: See HPI. [...] 404 QTC Calculation (Bazett) 423 Calculated P Branford 32 Calculated R Branford 14 Calculated T Branford 54 Impression NORMAL SINUS RHYTHM NORMAL ECG No results found for this or any previous visit (from the past 99313 hour(s)). Instructions Given to Patient: Instructions located in the after visit summary. Patient given verbal and written preop instructions and voices comprehension and compliance. SIGNATURE: Jamil Delacruz PA-C PATIENT NAME: Shey Obrien DATE: July 23, 2024 TIME: 1:07 PM PAGER/CONTACT #: documented in this encounterPrem[facility]12-23-2024 Telephone encounter Note * Telephone Encounter - Trip Lieberman MA - 07/01/2024 1:22 PM EST Sending this to Dr Jack [facility] [id number] Miscellaneous Notes* Telephone Encounter - Trip Lieberman MA - 07/01/2024 1:22 PM EST Sending this to Dr Jack * Telephone Encounter - Sandra Arcos NP - 06/29/2024 11:46 AM EST Did we call Dr. Jack's office and let him know that we took over the Aricept. If not can we please. I do not see it documented. Thank you documented in this encounterThe Rehabilitation I[id number] Telephone encounter Note* Telephone Encounter - Sandra Arcos NP - 06/29/2024 11:46 AM EST Did we call Dr. Jack's office and let him know that we took over the Aricept. If not can we please. I do not see it documented. Thank you [facility] InstitutePcdzouxjvo42-31-9400 Telephone encounter Note* Telephone Encounter - Cassy Donnelly - 06/13/2024 11:39 AM EST Patient would like her Losartan 50 mg and Pantoprazole 40 mg changed to [facility] pharmacy insteadof VALERIA KUMARI [facility] [id number] Miscellaneous Notes* Telephone Encounter - Acssy Cony - 06/13/2024 11:39 AM EST Patient would like her Losartan 50 mg and Pantoprazole 40 mg changed to [facility] pharmacy insteadof VALERIA KUMARI documented in this encounterThe Rehabilitation [id number] History of Present illness Narrative* Latrell Jack [...] ESTAssociated Problem(s): COPD (chronic obstructive pulmonary disease) ([facility]) Symptoms stable and continue spiriva. Use albuterol PRN. * Latrell Jack MD - 05/15/2024 10:33 AM ESTAssociated Problem(s): Class 2 severe obesity due to excess calories with serious comorbidity and body mass index (BMI) of 38.0 to 38.9 in adult ([facility]) Weight loss indicated. * Latrell [...] Items Addressed This Visit Essential hypertension, benign ([facility]/HCC) - Primary BP improved but still elevated and increase losartan. Continue to monitor PRN. Relevant Medications losartan (Cozaar) 50 MG tablet Primary osteoarthritis of both knees Pain stable and use OTC PRN. COPD (chronic obstructive pulmonary disease) ([facility]) Symptoms stable and continue spiriva. [...] (CMS/HCC) Weight loss indicated. documented in this encounterThe Rehabilitation InstituteXudidcqyiu31-59-5084 NoteHNO ID: [id number] Author: XAVIER BOYD MD Service: ? Author [...] blinded, parallel group trial IRB NO.: #[id number] INSULATION ESTIMATOR: Pa Prakash MD COORDINATOR/Research Nurse/Telemarketing Supervisor: Abdelrahman He MD Phone/email: [phone], [email or web address] Consenting was performed in person prior [...] CRITERIA Yes No 1. The patient lacks Rwandan language fluency or cannot understand the consent form/study procedures [] [x] 2. The patient is [] [x] 3. The patient has a BMI >45 [] [x] 4. The patient has undergone previous hiatal hernia repair [] [x] 5. The patient will undergo paraesophageal hernia repair with a concurrent bariatric procedure to reduce stomach volume [] [x][facility] 04-29-2024 History of Present illness Narrative* [...] blinded, parallel group trial IRB NO.: #[id number] INSULATION ESTIMATOR: Pa Prakash MD COORDINATOR/Research Nurse/Telemarketing Supervisor: Abdelrahman He MD Phone/email: [phone], Consenting was performed in person prior to [...] CRITERIA Yes No 1. The patient lacks Rwandan language fluency or cannot understand the consent [...] Yan Moser - 04/29/2024 11:16 AM EDT [facility] Abdominal Core Health - HISTORY AND [...] General Surgery documented in this encounterPremier Health [facility]10-21-2024 NoteHNO ID: [id number] Author: YAN MOSER, ? Service: ? Author Type: Physician Type: Progress Notes Filed: 04/29/2024 12:10 Note Text: [facility] for Abdominal Core Health - HISTORY AND [...] - Consents obtained Yan Moser MD [facility]As[facility] Nurse Note* Diomedes Fiore MA - 04/29/2024 10:50 AM EDT What is the reason for your visit today? Consult Who is your referring physician? Dafne Spears Are you having poor oral intake? YES Have you had unintentional weight loss of 15 lbs/7 Kg in the last 3-6 months? NO Bowels: soft, more frequent Wound: none Temperature: No Drains: No [facility]10-21-2024 Nurse Note* Diomedes Fiore MA - 04/29/2024 [...] Drains: No documented in this encounterPremier Health [facility]10-14-2024 Telephone encounter Note * Telephone Encounter - Danielle Cummings - 04/22/2024 5:32 PM EDT Spoke with PT she state no prior surgeries [facility]10-14-2024 Miscellaneous Notes* Telephone Encounter - Danielle Cummings - 04/22/2024 5:32 PM EDT Spoke with PT she state no prior surgeries documented in this encounterPremier Health [facility]10-03-2024 History of Present illness Narrative* Mao Morrow, [...] No history of alcohol/substance abuse. Reformed smoker. [place] language Rwandan. Completed high school education as well as some college. Described self asa C student. 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 Motor/Speed of Processing: Left-handed. Fisher Diving strength 31st %ile with left-hand, 18th %ile [...] Learning of a word list 58th %ile (5-6-35-10-12), delayed recall 50th %ile. Recognition discriminability 69th [...] of this individual. Please contact me with anyInfinity Wireless Ltdions at [phone]. documented in this encounterThe Rehabilitation InstituteZyfpzmoqpw72-72-6363 NoteEndoscopic Procedure Report - Other Patient: SHEY [...] 1 tab, Oral, Daily Flonase 0.05 mg/inh Hooper: 2 spray(s), Nasal, Daily, Refill(s) 0, Dry [...] a day (at bedtime) Flonase 0.05 mg/inh Hooper 2 spray(s), Nasal, Daily losartan 25 mg [...] All Problems HTN (hypertension) / SNOMED CT 8975581969 / Confirmed Chronic obstructive pulmonary disease / SNOMED CT 03288113 / Confirmed Insomnia / SNOMED CT 017590323 / Confirmed Seasonal allergic rhinitis / SNOMED CT 484053253 / Confirmed Dyslipidemia / SNOMED CT 4687604343 / Confirmed BMI 39.0-39.9,adult / SNOMED CT 217463860 / Confirmed Morbid obesity / SNOMED CT 146585336 / Confirmed GERD (gastroesophageal reflux disease) / SNOMED CT 001169498 / Confirmed Hiatal hernia / SNOMED CT 979895003 / Confirmed EDWIN (obstructive sleep apnea) / SNOMED CT 622196217 / Confirmed Lower extremity edema / SNOMED CT 701516723 / Confirmed TIA (transient ischemic attack) / SNOMED CT 954080513 / Confirmed Screening for malignant neoplasm of colon / SNOMED CT 468627481 / Confirmed Dysphagia / SNOMED CT 96069912 / Confirmed Histories Past Medical History: Resolved Hernia (317368403): Resolved. Sleep apnea (018133524): Resolved. Family History: Father Alcoholism Primary malignant neoplasm of lung COPD Mother Cardiac arrest Alzheimer's disease Procedure history: Colonoscopy (500184946) on 10/13/2023 at 73 Years. ORIF - Open reduction of fracture of ankle with internal fixation (968807532888676). Meniscal repair (521871335). Tonsillectomy (417115564). Hand tendon repaired (653558425). Social History Social & Psychosocial Habits Alcohol [...] NTND Impression and Plan Impression: DYSPHAGIA [facility]: [facility]:Result Comment: wrong folder Electronically Signed By: Yovanny OLIVO, Dafne Torres\.br\Date and Time Signed: 03/20/24 12:47 [id number] History of Present illness Narrative* Mao Morrow, [...] No history of alcohol/substance abuse. Reformed smoker. [place] language Rwandan. Completed high school education as well as some college. Describes itself as a C student. 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 Please contact me with [employer] at [phone]. documented in this encounterThe Rehabilitation InstituteCagmiyddzi12-00-8694 Hospital Discharge instructions Patient Education 03/20/2024 13:07:59 [...] Follow these instructions at home: Medicines Take fqsq-tdj-eiuxnzh and prescription medicines only as told by [...] or drinks. ?Garlic or onions. ?Spicy foods. ?Mathews fruits. ?Tomato-based foods. ?Fatty or fried foods. [...] provider. Document Revised: 01/09/2023 Document Reviewed: 01/09/2023 Medicine in Practice Patient Education 2023 [employer]. 03/20/2024 13:07:56 Gastritis, Adult, Fdyh-bj-Pcmg Gastritis, Adult Gastritis is irritation and swelling [...] Follow these instructions at home: Medicines Take xhcd-aon-mhrwirx and prescription medicines only as told by [...] away. Call your local emergency services (911 [facility] [place] Do not wait to see if [...] provider. Document Revised: 10/30/2021 Document Reviewed: 10/30/2021 Medicine in Practice Patient Education 2023 [employer]. 03/20/2024 13:07:48 Hiatal Hernia Hiatal Hernia A [...] reduce GERD symptoms. Medicines. These may include: ?Cufk-ylb-xdzepgo antacids. ?Medicines that make your stomach empty [...] may include: ?Fatty foods, like fried foods. ?Mathews fruits, like oranges or lemon. ?Other foods [...] Do not drink alcohol. General instructions Take urxl-fmb-poxcqbm and prescription medicines only as told by [...] provider. Document Revised: 08/23/2022 Document Reviewed: 08/23/2022 Medicine in Practice Patient Education 2023 [employer]. 03/20/2024 13:07:46 Endoscopy, Care After Procedure [facility] ([facility]) Endoscopy Care After Procedure Please read the instructions outlined below and refer to this sheet in the next few weeks. These discharge instructions provide you with general information on caring for [facility] Your doctor may also give [...] Document Re-Released: 12/18/2006 ExitCare Patient Information 2009 [employer]. Follow Up Care 02/26/2024 09:52:05 With:Yovanny OLIVO, SENAIT Sifuentes, [facility] Address: When: Unknown Comments:Call for any problems. Office will call to schedule follow up appointment [facility] 09-11-2024 Evaluation + Plan note Future Scheduled Tests Radiology* XR Esophagus 03/20/24 [facility] 09-11-2024 NotePatient Education - Text Endoscopy Care After Procedure Please read the instructions outlined below and refer to this sheet in the next few weeks. These discharge instructions provide you with general information on caring for yourself [facility]. Your doctor may also give [...] Document Re-Released: 12/18/2006 ExitCare? Patient Information ?2009 [employer]. Gastroenterology Hiatal Hernia A hiatal hernia occurs [...] symptoms. ? Medicines. These may include: ? Ucya-jii-knvgfig antacids. ? Medicines that make your stomach [...] ? Avoid putting pressu (more content not included)...[facility] 03-20-2024 NoteEndoscopic Procedure Report - Other Patient: [...] normal examined duodenum Images Procedure images: Rec1_hd_video_2023___02_49_155.jpg Rec1_hd_video_2023____35_581.jpg Rec1_hd_video_2023____25_745.jpg Rec1_hd_video_2023____15_326.jpg Rec1_hd_video_2023___00_14_566.jpg Rec1_hd_video_2023__T1_00_01_833.jpg . Post-Procedure Complications: none. Estimated blood loss: [...] if surgery referral is indicated, will be orderedCrystal Clinic Orthopedic CenterComment on above:Result Comment: Electronically Signed By: Yovanny OLIVO, Dafne Torres\.br\Date and Time Signed: 03/20/24 12:58 EDTOther Comment: Missing Attachment - attachment storage system not supported [id number] Can be viewed in source systemMissing Attachment - attachment storage system not supported 3458310 Can be viewed inshaskell [facility] systemMissing Attachment - attachment storage system not supported 1708519 Can be viewed in source systemMissing Attachment - attachment storage system not supported 2777321 Can be viewed in source systemMissing Attachment - attachment storage system not supported 2431190 Can be viewed in source systemMissing Attachment - attachment storage system not supported 0791863 Can be viewed in source [id number] NoteEndoscopic Procedure Report - Other Patient: SHEY [...] 1 tab, Oral, Daily Flonase 0.05 mg/inh Hooper: 2 spray(s), Nasal, Daily, Refill(s) 0, Dry [...] a day (at bedtime) Flonase 0.05 mg/inh Hooper 2 spray(s), Nasal, Daily losartan 25 mg [...] All Problems HTN (hypertension) / SNOMED CT 5128548917 / Confirmed Chronic obstructive pulmonary disease / SNOMED CT 98262176 / Confirmed Insomnia / SNOMED CT 462113541 / Confirmed Seasonal allergic rhinitis / SNOMED CT 157756058 / Confirmed Dyslipidemia / SNOMED CT 1127756155 / Confirmed BMI 39.0-39.9,adult / SNOMED CT 116924769 / Confirmed Morbid obesity / SNOMED CT 292949738 / Confirmed GERD (gastroesophageal reflux disease) / SNOMED CT 527259205 / Confirmed Hiatal hernia / SNOMED CT 338509505 / Confirmed EDWIN (obstructive sleep apnea) / SNOMED CT 397134672 / Confirmed Lower extremity edema / SNOMED CT 560145669 / Confirmed TIA (transient ischemic attack) / SNOMED CT 605361740 / Confirmed Screening for malignant neoplasm of colon / SNOMED CT 122978172 / Confirmed Dysphagia / SNOMED CT 72709655 / Confirmed Histories Past Medical History: Resolved Hernia (590653515): Resolved. Sleep apnea (881450949): Resolved. Family History: Father Alcoholism Primary malignant neoplasm of lung COPD Mother Cardiac arrest Alzheimer's disease Procedure history: Colonoscopy (790706522) on 10/13/2023 at 73 Years. ORIF - Open reduction of fracture of ankle with internal fixation (812421176882364). Meniscal repair (495038373). Tonsillectomy (192735438). Hand tendon repaired (982331679). Social History Social & Psychosocial Habits Alcohol [...] NTND Impression and Plan Impression: DYSPHAGIA [facility]: [facility]:Result Comment: Electronically Signed By: Yovanny OLIVO, Dafne Torres\.maikol\Date and Time Signed: 03/20/24 12:47 [id number] History of Present illness Narrative* Diomedes Fitzgerald, [...] was counseled on the risks of stroke, IL, and sudden with EDWIN, along with the [...] instructions Return to clinic: documented in this encounterThe Rehabilitation InstituteBlsehfhtvx56-19-2745 Note [id number] [facility] Evaluation + Plan noteExtracted from: Title:ANES Post-operative Note - General Author: Shaji Bethea Jr., DO Date:10/13/23 Plan Transfer/Discharge: Transfer/Discharge Discharge when meets criteria ( From PACU to Ambulatory Surgery Unit, and To home ). Extracted from: Title:ANES Pre-operative Note - Endo Author:Shaji Mendoza Jr., DO Date:10/13/23 Plan [place] [employer] Anesthesiologists (ASA) physical status classification: Class III. Anesthetic Preoperative Plan: Anesthesia General, and -TIVA. [facility]04-05-2024 Hospital Discharge instructions Patient Education 10/13/2023 09:31:42 Colonoscopy, Care After Surgery Saljulian (CUSTOM) Colonoscopy Care After Surgery Please read the instructions outlined below and refer to this sheet in the next few weeks. These discharge instructions provide you with general information on caring for yourself [facility] Your doctor may also give [...] Up Care 09/12/2023 10:17:58 With:Pa WEBB Address: [address] [place], [place] [address] Business (1) When: only if needed [facility]04-05-2024 NotePatient: SHYE OBRIEN Age: 73 years Sex: Female : 1950 Associated Diagnoses: None Author: Pa WEBB MD Subjective no changes to H & PFKettering Health Greene MemorialComment on above:Result Comment: Electronically Signed By: Pa WEBB MD\.br\Date and Time Signed: 10/13/23 09:45 [id number] NoteChief Complaint consultation for colonoscopy [facility] Staff 72 year old female presents on [...] a day (at bedtime) Flonase 0.05 mg/inh Hooper, 2 spray(s), Nasal, Daily losartan 25 mg [...] Alcoholism: Father. Alzheimer's di (more content not included)...[facility] CenterComment on above:Result Comment: Electronically Signed By: TRACEY OLIVO, Pa Lynn\Date and Time Signed: 09/12/23 10:16 [id number] History of Present illness Narrative* Latrell Jack [...] referral to General Surgery documented in this encounterThe Rehabilitation InstituteBrcjsnyndq23-98-5178 NoteEXAMINATION: XR CHEST 1 V HISTORY: SHORTNESS [...] Electronically authenticated by: MEHNAZ SANTIAGO Date: 2021-11-02 16:39[facility]03-04-2022 NotePROCEDURE: XR ANKLE RT MIN [...] Electronically authenticated by: WILLARD ANAND Date: 2021-09-10 09:02[facility]03-04-2022 NotePROCEDURE: XR ANKLE RT 2V COMPARISON: 03/02/2020. HISTORY: Pain FINDINGS: 35 seconds of fluoroscopy. 5 fluoroscopic images Interval removal of internal fixation hardware. Components of 2 fractured screws across the tibiofibular syndesmosis remain on image #5 IMPRESSION: Removal of lateral fibular plate and screws Electronically authenticated by: WILLARD ANAND Date: 2021-09-10 08:30[facility] HospitalDis[facility] summary Author Tra Hobson [facility] Note Date/Time December 16, 2024 3:46p m [facility] [address] [place] [address] Discharge Summary Signed Patient: Shye Obrien MR#: [id number] : 1950 Acct:[id number] Age/Sex: 74 / F Adm Date: 5 Loc: Room: [address] [place] [address]: Erik Kim MD Copies to: [...] boyfriend Employment: retired former [employer] worker in [employer] Relationships: close, supportive relationship with family [...] Instructions: Important Contact Information You can call [facility] Inpatient Behavioral Health at [phone] any time day or night if you have emergent questions or question regarding discharge instructions. If at any time you are feeling an increase inyour psychiatric symptoms, call your physician or behavioral healthcare provider. If any time you have thoughts of harming yourself or others contact one of the following: Call 8 (available 30/01) Crisis Text Line (available 30/01) text 4HOPE to 466694 [facility] Hope Line (available 8 a.m. Midnight) call [phone] ([phone]) Instructions: Depression in adults - Discharge instructions, [facility] Behavioral Health [place] Instructions, Know your Meds [...] Up: [facility] - [place] [Outside] - 12/17/24 (manager collection will call you tomorrow, if you miss [...] signed by Tra Hobson MD> 12/16/24 1546 [facility] Work Phone: Evaluation + Plan note Future Appointments Appointment Date:03/20/2024 12:15:00 PM Scheduled Provider: Location:[facility] [...] features (HCC) (CMS/HCC) documented in this encounter [facility] HealthcareEvaluation note* Diagnosis Paraesophageal hernia- Primary Diaphragmatic hernia without mention of obstruction or gangrene documented in this encounter [facility]* Diagnosis Preoperative examination- Primary Preoperative examination, unspecified Paraesophageal hernia Diaphragmatic hernia without mention of obstruction or gangrene Abnormal results of liver function studies Nonspecific abnormal results of liver function study Abnormal coagulation profile documented in this encounter [facility]* Diagnosis Essential hypertension, benign (CMS/HCC)- [...] in adult (CMS/HCC) documented in this encounter [facility] HealthcareEvaluation note* Diagnosis Essential hypertension, benign [...] insomnia Other chronic pain Generalized anxiety disorder ([facility]/HCC) Generalized anxiety disorder documented in this encounter [...] colon Morbid obesity due to excess calories ([facility]/HCC) Dyslipidemia (CMS/HCC) Other and unspecified hyperlipidemia Encounter for long-term (current) use of medications Encounter for long-term (current) use of other medications Body mass index [BMI] 40.0-44.9, adult (Z68.41) Essential hypertension, benign (CMS/HCC)- Primary Essential hypertension, benign Dysphagia, unspecified type 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[facility]/HCC) Senile dementia, uncomplicated Chronic obstructive [...] major depressive disorder, without psychotic features (HCC) ([facility]/HCC) Generalized anxiety disorder ([facility]) Generalized anxiety disorder EDWIN on CPAP Other [...] smoker -CXR pending [facility]* Diagnosis Pre-op evaluation- Primary Preoperative examination, [...] abnormality [facility] Diagnosis Essential hypertension, benign (CMS/HCC)- [...] or maintaining sleep documented in this encounter [facility]* Diagnosis Essential hypertension, benign [...] or maintaining sleep documented in this encounter [facility] note* Diagnosis Pre-op evaluation- Primary Preoperative examination, unspecified Preoperative examination Preoperative examination, unspecified Paraesophageal hernia Diaphragmatic hernia without mention of obstruction or gangrene Chronic obstructive pulmonary disease, unspecified COPD type ([facility]) CHENEY (dyspnea on exertion) Other [...] [facility] Diagnosis Essential hypertension, benign (CMS/HCC)- Primary Essential hypertension, benign Chronic obstructive pulmonary disease, unspecified COPD type (CMS/HCC) Primary insomnia Persistent disorder of initiating or maintaining sleep Primary osteoarthritis of both knees Hiatal hernia with gastroesophageal reflux disease without esophagitis Seasonal allergic rhinitis due to pollen Screening for colon cancer Special screening for malignant neoplasms, colon Morbid obesity due to excess calories ([facility]) Dyslipidemia ([facility]) Other and unspecified hyperlipidemia Encounter for long-term (current) use of medications Encounter for long-term (current) use of other medications Body mass index [BMI] 40.0-44.9, adult (Z68.41) Essential hypertension, benign (CMS/HCC)- Primary Essential hypertension, benign Dysphagia, unspecified type 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CMS/[facility]) Senile dementia, uncomplicated Chronic obstructive [...] (BMI) of 38.0 to 38.9 in adult ([facility]) Medicare annual wellness visit, subsequent- Primary Prediabetes Other abnormal glucose Dyslipidemia (CMS/[facility]) Other and unspecified hyperlipidemia Encounter for long-term (current) use of medications Encounter for long-term (current) use of other medications Essential hypertension, benign ([facility]/HCC) Essential hypertension, benign Class 2 severe obesity due to excess calories with serious comorbidity and body mass index (BMI) of 36.0 to 36.9 in adult ([facility]) Chronic obstructive pulmonary disease, unspecified COPD type ([facility]) 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[facility]) Senile dementia, uncomplicated documented in this encounter [facility] HealthcareEvaluation note* Diagnosis Essential hypertension, benign ([facility]/HCC)- Primary Essential hypertension, benign Chronic obstructive pulmonary disease, unspecified COPD type ([facility]) Primary insomnia Persistent disorder of initiating or maintaining sleep Primary osteoarthritis of both knees Hiatal hernia with gastroesophageal reflux disease without esophagitis Seasonal allergic rhinitis due to pollen Screening for colon cancer Special screening for malignant neoplasms, colon Morbid obesity due to excess calories ([facility]) Dyslipidemia ([facility]) Other and unspecified hyperlipidemia Encounter for long-term (current) use of medications Encounter for long-term (current) use of other medications Body mass index [BMI] 40.0-44.9, adult (Z68.41) Essential hypertension, benign ([facility]/HCC)- Primary Essential hypertension, benign Dysphagia, unspecified type 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[facility]) Senile dementia, uncomplicated Chronic obstructive pulmonary disease, unspecified COPD type ([facility]) Hiatal hernia with gastroesophageal reflux disease without esophagitis Primary osteoarthritis of both knees Primary insomnia Persistent disorder of initiating or maintaining sleep EDWIN (obstructive sleep apnea) Obstructive sleep apnea (adult) (pediatric) Essential hypertension, benign ([facility])- Primary Essential hypertension, benign Chronic obstructive pulmonary disease, unspecified COPD type ([facility]/HCC) Hiatal hernia with gastroesophageal reflux disease without esophagitis EDWIN (obstructive sleep apnea) Obstructive sleep apnea (adult) (pediatric) Primary osteoarthritis of both knees Primary insomnia Persistent disorder of initiating or maintaining sleep Class 2 severe obesity due to excess calories with serious comorbidity and body mass index (BMI) of 38.0 to 38.9 in adult ([facility]) Medicare annual wellness visit, subsequent- Primary Prediabetes Other abnormal glucose Dyslipidemia ([facility]) Other and unspecified hyperlipidemia Encounter for long-term (current) use of medications Encounter for long-term (current) use of other medications Essential hypertension, benign ([facility]) Essential hypertension, benign Class 2 severe obesity due to excess calories with serious comorbidity and body mass index (BMI) of 36.0 to 36.9 in adult ([facility]) Chronic obstructive pulmonary disease, unspecified COPD type (CMS/HCC) 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[facility]/HCC) Senile dementia, uncomplicated Chronic obstructive pulmonary disease, unspecified COPD type (CMS/HCC) Primary insomnia Persistent disorder of initiating or maintaining sleep documented in this encounter [facility] HealthcareEvaluation note* Diagnosis Essential hypertension, benign ([facility]/HCC)- Primary Essential hypertension, benign Chronic obstructive pulmonary disease, unspecified COPD type (CMS/HCC) Primary insomnia Persistent disorder of initiating or maintaining sleep Primary osteoarthritis of both knees Hiatal hernia with gastroesophageal reflux disease without esophagitis Seasonal allergic rhinitis due to pollen Screening for colon cancer Special screening for malignant neoplasms, colon Morbid obesity due to excess calories ([facility]) Dyslipidemia ([facility]) Other and unspecified hyperlipidemia Encounter for long-term (current) use of medications Encounter for long-term (current) use of other medications Body mass index [BMI] 40.0-44.9, adult (Z68.41) Essential hypertension, benign ([facility]/HCC)- Primary Essential hypertension, benign Dysphagia, unspecified type 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[facility]) Senile dementia, uncomplicated Chronic obstructive pulmonary disease, unspecified COPD type ([facility]/HCC) Hiatal hernia with gastroesophageal reflux disease without esophagitis Primary osteoarthritis of both knees Primary insomnia Persistent disorder of initiating or maintaining sleep EDWIN (obstructive sleep apnea) Obstructive sleep apnea (adult) (pediatric) Essential hypertension, benign ([facility])- Primary Essential hypertension, benign Chronic obstructive pulmonary disease, unspecified COPD type ([facility]/HCC) Hiatal hernia with gastroesophageal reflux disease without esophagitis EDWIN (obstructive sleep apnea) Obstructive sleep apnea (adult) (pediatric) Primary osteoarthritis of both knees Primary insomnia Persistent disorder of initiating or maintaining sleep Class 2 severe obesity due to excess calories with serious comorbidity and body mass index (BMI) of 38.0 to 38.9 in adult ([facility]) Medicare annual wellness visit, subsequent- Primary Prediabetes Other abnormal glucose Dyslipidemia ([facility]) Other and unspecified hyperlipidemia Encounter for long-term (current) use of medications Encounter for long-term (current) use of other medications Essential hypertension, benign ([facility]) Essential hypertension, benign Class 2 severe obesity due to excess calories with serious comorbidity and body mass index (BMI) of 36.0 to 36.9 in adult ([facility]) Chronic obstructive pulmonary disease, unspecified COPD type (CMS/HCC) 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CMS/HCC) Senile dementia, uncomplicated Primary insomnia Persistent disorder of initiating or maintaining sleep Chronic obstructive pulmonary disease, unspecified COPD type (CMS/HCC) documented in this encounter [facility] HealthcareEvaluation note* Diagnosis Essential hypertension, benign [...] colon Morbid obesity due to excess calories ([facility]) Dyslipidemia ([facility]) Other and unspecified hyperlipidemia Encounter for long-term (current) use of medications Encounter for long-term (current) use of other medications Body mass index [BMI] 40.0-44.9, adult (Z68.41) Essential hypertension, benign ([facility]/HCC)- Primary Essential hypertension, benign Dysphagia, unspecified type 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CMS/HCC) Senile dementia, uncomplicated Chronic obstructive pulmonary disease, unspecified COPD type (CMS/HCC) Hiatal hernia with gastroesophageal reflux disease without esophagitis Primary osteoarthritis of both knees Primary insomnia Persistent disorder of initiating or maintaining sleep EDWIN (obstructive sleep apnea) Obstructive sleep apnea (adult) (pediatric) Essential hypertension, benign ([facility]/HCC)- Primary Essential hypertension, benign Chronic [...] (BMI) of 38.0 to 38.9 in adult ([facility]) Medicare annual wellness visit, subsequent- Primary Prediabetes Other abnormal glucose Dyslipidemia ([facility]) Other and unspecified hyperlipidemia Encounter for long-term (current) use of medications Encounter for long-term (current) use of other medications Essential hypertension, benign ([facility]) Essential hypertension, benign Class 2 severe obesity due to excess calories with serious comorbidity and body mass index (BMI) of 36.0 to 36.9 in adult ([facility]) Chronic obstructive pulmonary disease, unspecified COPD type (CMS/HCC) 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[facility]/HCC) Senile dementia, uncomplicated Degenerative lumbar spinal stenosis- Primary Spinal stenosis of lumbar region Chronic obstructive pulmonary disease, unspecified COPD type ([facility]/HCC) documented in this encounter [facility] HealthcareEvaluation note* Diagnosis Essential hypertension, benign- Primary Essential hypertension, benign Chronic obstructive pulmonary disease, unspecified COPD type (HCC) Primary insomnia Persistent disorder of initiating or maintaining sleep Primary osteoarthritis of both knees Hiatal hernia with gastroesophageal reflux disease without esophagitis Seasonal allergic rhinitis due to pollen Screening for colon cancer Special screening for malignant neoplasms, colon Morbid obesity due to excess calories ([facility]) Dyslipidemia Other and unspecified hyperlipidemia Encounter for [...] (BMI) of 38.0 to 38.9 in adult ([facility]) Medicare annual wellness visit, subsequent- Primary Prediabetes Other abnormal glucose Dyslipidemia Other and unspecified hyperlipidemia Encounter for long-term (current) use of medications Encounter for long-term (current) use of other medications Essential hypertension, benign Essential hypertension, benign Class 2 severe obesity due to excess calories with serious comorbidity and body mass index (BMI) of 36.0 to 36.9 in adult ([facility]) Chronic obstructive pulmonary disease, unspecified COPD type [...] Narrative No data available for this section [facility] No data available for this section [facility] Discharge instructionsAmbulatory Orders* Referral to ENT Time Frame: 04/10/25, Location: None Selected * Referral to Orthopedic Surgery Time Frame: 04/10/25, Location: None Selected [facility] Work Phone: Progress note No data available for this section [facility] Consultation (Routine) - Pending Review Specialty Diagnoses / Procedures Referred By Joan junior Referred To Contact General Surgery Diagnoses Screening for colon cancer Procedures TX OFFICE/OUTPATIENT NEW HIGH MDM 60 MINUTES Latrell Jack MD [address] [place] [address] Pa Webb MD [address] [place] [address] Referral ID Status Reason Start Date Expiration Date Visits Requested Visits Authorized [id number] Pending Review Specialty Services Required 08/11/2023 02/07/2024 1 1 [facility] Healthcare Summary Purpose Family History No [...] Course Note [facility] SURGERY Clinical Discharge Summary PERSON INFORMATION Name SHEY OBRIEN Age 68 Years 52 Sex FEMALE Language Rwandan PCP LATRELL JACK Marital Status Single Med Service Ambulatory Surgery Acct# Arrival 02/04/19 11:44:00 Visit Reason SURGERY - RELEASE TRIGGER FINGER LEFT RING FINGER AND E/O CYST LEFT RING FINGER Acuity LOS 012 05:38 Address: [address] [place] [address] Comment: PROVIDER INFORMATION VITALS INFORMATION Vital Sign [...] (FEB 04 16:03) DBP 67 mmHg (FEB 04:) SpO2 96 % (FEB 04:05) Pain assessment: [...] Referred By Joan t Referred To Contact CT IMAGING Diagnoses Postoperative visit Procedures CT CHEST WO IVCON DIAGNOSTIC COMPUTED TOMOGRAPHY THORAX W/O CNTRST Katarzyna Snyder, VISITOR SERVICES COORDINATOR.SIGN LANGUAGE INTERPRETER [address] [address] [place] [address] Referral ID Status Reason Start Date Expiration Date Visits Requested Visits Authorized [id number] New Request Auto-Generat ed Referral 08/07/2025 09/06/2025 1 1 Specialty Diagnoses / Procedures Referred By Joan t Referred To Contact Radiology Diagnoses Memory loss Procedures MR brain wo contrast Diomedes Fitzgerald, [address] [place] [address] Referral ID Status Reason Start Date Expiration Date V isits Requested Visits Authorized [id number] Pending Review 03/07/2024 09/03/2024 1 1 Specialty Diagnoses / Procedures Referred By Joan t Referred To Contact Diagnoses Preoperative examination Paraesophageal hernia Procedures REFER TO [facility] PREOPERATIVE OPTIMIZATION OFFICE/OUTPATIENT NEW HIGH MDM 60 MINUTES Katarzyna Carter APRN.SIGN LANGUAGE INTERPRETER [address] [place] [address] Referral ID Status Reason Start Date Expiration Date Visits Requested Visits Authorized [id number] Authorized PCP Requested Referral 4 05/04/2025 1 1 Specialty Diagnoses / Procedures Referred By Contioana t Referred [facility] Diagnoses Preoperative examination Paraesophageal hernia Procedures ECG COMPLETE ECG ROUTINE ECG W/LEAST 12 LDS W/I&R Katarzyna Carter, LISSETTE.SIGN LANGUAGE INTERPRETER [address] [place] [address] [facility] [address] [place] [address] Referral ID Status Reason Start Date Expiration Date Visits Requested Visits Authorized [id number] New Request Auto-Generat ed Referral 4 05/04/2025 1 1 Chief Complaint and Reason for Visit Chief Complaint Admit Date BH January 21, 2025 3:32 pm [facility] April 10, 2025 11:27am Reason for Visit Admit Date Anxiety February 03, 2025 3:29 pm Major depressive disorder, recurrent, mo derate February 03, 2025 3:29pm Memory loss February 03, 2025 3:29 pm Primary insomnia February 03, 2025 3:29 pm 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, 2025 3:29 pm Obstructive sleep apnea syndrome February 032024 3:29pm Primary osteoarthritis, left shoulder Oc tober 2024 11:27am Reason for Visit Admit Date Anxiety February [...] 11:27am Tinnitus April 10, 2025 11 :27am Chief Complaint Admit Date [facility] [place] April 10, 2025 11:27am BH April 23, 2025 3 :04pm TB CONSULT DR JACK LT SHOULDER PAIN WX [facility] April 24, 2025 10:39am Additional Source Comments INFORMATION SOURCE (unrecogn ized section and content) DATE CREATED AUTHOR 02/17/2019 [facility] DATE CREATED AUTHOR AUTHOR'S ORGANIZ ATION 08/03/2022 [facility] DATE CREATED AUTHOR AUTHOR'S ORGANIZ ATION 03/28/2024 [facility] DATE CREATED AUTHOR AUTHOR'S ORGANIZ ATION 04/04/2024 [facility] DATE CREATED AUTHOR AUTHOR'S ORGANIZ ATION 12/13/2024 [facility] DATE CREATED AUTHOR AUTHOR'S ORGANIZ ATION 12/17/2024 [facility] DATE CREATED AUTHOR AUTHOR'S ORGANIZ ATION 02/08/2025 [facility] DATE CREATED AUTHOR AUTHOR'S ORGANIZ ATION 02/25/2025 [facility] EPIC DATE CREATED AUTHOR AUTHOR'S ORGANIZ ATION 04/25/2025 [facility] DATE CREATED AUTHOR AUTHOR'S ORGANIZ ATION 04/25/2025 [facility] Care Teams (unrecognized sec tion and content) Team Status: Active Member Role Status Dates Latrell Jack MD Primary Care Provider Active Team Status: Inactive Member Role Status Dates Latrell Jack MD Primary Care Provider Active S tart: February 03, 2025 End: February 03, 2025 Diomedes Fitzgerald DO Attending Provider Active Sta rt: February 03, 2025 End: February 03, 2025 Team Status: Inactive Member Role Status Dates Latrell Jack MD Primary Care Provider Active S tart: April 10, 2025 End: April 10, 2025 Latrell Jack MD Attending Provider Active Star t: April 10, 2025 End: April 10, 2025 Team Status: Active Member Role Status Dates Latrell Jack MD Primary Care Provider Active S tart: April 23, 2025 Erik Kim MD Attending Provider Active Start: April 23, 2025 Team Status: Inactive Member Role Status Dates Latrell Jack MD Primary Care Provider Active S tart: April 24, 2025 End: April 24, 2025 Elmer Suh DO Attending Provider Active St art: April 24, 2025 End: April 24, 2025 Team Status: Active Member Role Status Dates Latrell Jack MD Primary Care Provider Active S tart: January 21, 2025 Erik Kim MD Attending Provider Active Start: January 21, 2025 Studio Designer Relationship Specialty Start Date End Date Latrell Jack MD [address] [place] [phone] PCP - General Family Medicine 08/05/23 Studio Designer Relationship Specialty Start Date End Date Latrell Jack MD [address] [place] [phone] PCP - General Family Medicine 08/05/23 Studio Designer Relationship Specialty Start Date End Date Latrell Jack MD [address] [place] [phone] PCP - General Family Medicine 08/05/23 Studio Designer Relationship Specialty Start Date End Date Dafne Spears MD [address] [address] Internal Medicine 04/02/24 Studio Designer Relationship Specialty Start Date End Date Dafne Spears MD [address] [address] Internal Medicine 04/02/24 Studio Designer Relationship Specialty Start Date End Date Dafne Spears MD [address] [address] Internal Medicine 04/02/24 Studio Designer Relationship Specialty Start Date End Date Latrell Jack MD [address] [place] [phone] PCP - General Family Medicine 08/05/23 Studio Designer Relationship Specialty Start Date End Date Latrell Jack MD [address] [place] [phone] PCP - General Family Medicine 08/05/23 Studio Designer Relationship Specialty Start Date End Date Latrell Jack MD [address] [place] [phone] PCP - General Family Medicine 08/05/23 Diomedes Fitzgerald DO [address] [place] [address] Referring Physician Neurology 05/30/24 Studio Designer Relationship Specialty Start Date End Date Latrell Jack MD [address] [place] [phone] PCP - General Family Medicine 08/05/23 Studio Designer Relationship Specialty Start Date End Date Latrell Jack MD [address] [place] [phone] PCP - General Family Medicine 08/05/23 Studio Designer Relationship Specialty Start Date End Date Latrell Jack MD [address] [place] [phone] PCP - General Family Medicine 08/05/23 Studio Designer Relationship Specialty Start Date End Date Latrell Jack MD [address] [place] [phone] PCP - General Family Medicine 08/05/23 Studio Designer Relationship Specialty Start Date End Date Latrell Jack MD [address] [place] [phone] PCP - General Family Medicine 08/05/23 Studio Designer Relationship Specialty Start Date End Date Latrell Jack MD [address] [place] [phone] PCP - General Family Medicine 08/05/23 Diomedes Fitzgerald DO [address] [place] [address] Referring Physician Neurology 05/30/24 Studio Designer Relationship Specialty Start Date End Date Latrell Jack MD [address] [place] [phone] PCP - General Family Medicine 08/05/23 Diomedes Fitzgerald DO [address] [place] [address] Referring Physician Neurology 05/30/24 Studio Designer Relationship Specialty Start Date End Date Latrell Jack MD [address] [place] [phone] PCP - General Family Medicine 08/05/23 Diomedes Fitzgerald DO [address] [place] [address] Referring Physician Neurology 05/30/24 Studio Designer Relationship Specialty Start Date End Date Latrell Jack MD [address] [place] [address] PCP - General Family Medicine 07/01/24 Dafne Spears MD [address] [place] [phone] Internal Medicine 04/02/24 Studio Designer Relationship Specialty Start Date End Date Latrell Jack MD [address] [place] [address] PCP - General Family Medicine 07/01/24 Dafne Spears MD [address] [place] [phone] Internal Medicine 04/02/24 Studio Designer Relationship Specialty Start Date End Date Latrell Jack MD [address] [place] [phone] PCP - General Family Medicine 08/05/23 Diomedes Fitzgerald DO [address] [place] [address] Referring Physician Neurology 05/30/24 Studio Designer Relationship Specialty Start Date End Date Latrell Jack MD [address] [place] [phone] PCP - General Family Medicine 08/05/23 Diomedes Fitzgerald DO [address] [place], [place] [phone] Referring Physician Neurology 05/30/24 Studio Designer Relationship Specialty Start Date End Date Latrell Jack MD [address] [place] [address] PCP - General Family Medicine 07/01/24 Dafne Spears MD [address] [place] [address] Internal Medicine 04/02/24 Studio Designer Relationship Specialty Start Date End Date Latrell Jack MD [address] [place] [phone] PCP - General Family Medicine 08/05/23 Latrell Jack MD [address] [place] [phone] PCP - ACO Reach 08/16/24 Diomedes Fitzgerald DO [address] [place] [address] Referring Physician Neurology 05/30/24 Studio Designer Relationship Specialty Start Date End Date Latrell Jack MD [address] [place] [phone] PCP - General Family Medicine 08/05/23 Latrell Jack MD [address] [place] [address] PCP - ACO Reach 08/16/24 Diomedes Fitzgerald DO [address] [place] [address] Referring Physician Neurology 05/30/24 Studio Designer Relationship Specialty Start Date End Date Latrell Jack MD [address] [place] [address] PCP - General Family Medicine 08/05/23 Latrell Jack MD [address] [place] [address] PCP - ACO Reach 08/16/24 Diomedes Fitzgerald DO [address] [place] [address] Referring Physician Neurology 05/30/24 Studio Designer Relationship Specialty Start Date End Date Latrell Jack MD [address] [place] [address] PCP - General Family Medicine 08/05/23 Latrell Jack MD [address] [place] [address] PCP - ACO Reach 08/16/24 Diomedes Fitzgerald DO [address] [place] [address] Referring Physician Neurology 05/30/24 Studio Designer Relationship Specialty Start Date End Date Latrell Jack MD [address] [place] [address] PCP - General Family Medicine 08/05/23 Latrell Jack MD [address] [place] [address] PCP - ACO Reach 08/16/24 Diomedes Fitzgerald DO [address] [place], [place] [id number] Referring Physician Neurology 05/30/24 Studio Designer Relationship Specialty Start Date End Date Latrell Jack MD [address] [place] [phone] PCP - General Family Medicine 08/05/23 Latrell Jack MD [address] [place] [address] PCP - ACO Reach 08/16/24 Diomedes Fitzgerald DO [address] [place], [place] [id number] Referring Physician Neurology 05/30/24 Studio Designer Relationship Specialty Start Date End Date Latrell Jack MD [address] [place] [phone] PCP - General Family Medicine 08/05/23 Latrell Jack MD [address] [place] [address] PCP - ACO Reach 08/16/24 Diomedes Fitzgerald DO [address] [place], [place] [id number] Referring Physician Neurology 05/30/24 Team Status: Inactive Member Role Status Dates Latrell aJck MD Primary Care Provider Active S tart: [...] Other Provider Active Start: December 13, 2024 Studio Designer Relationship Specialty Start Date End Date Latrell Jack MD [address] [place] [address] PCP - General Family Medicine 08/05/23 Latrell Jack MD [address] [place] [address] PCP - ACO Reach 08/16/24 Diomedes Fitzgerald DO [address] [place] [address] Referring Physician Neurology 05/30/24 Sugar Arenas, MARGIN TRIMMER [address] [place] [address] [facility] 01/16/25 Studio Designer Relationship Specialty Start Date End Date Latrell Jack MD [address] [place] [address] PCP - General Family Medicine 08/05/23 Latrell Jack MD [address] [place] [address] PCP - ACO Reach 08/16/24 Diomedes Fitzgerald DO [address] [place] [address] Referring Physician Neurology 05/30/24 Sugar Arenas, MARGIN TRIMMER [address] [place] [address] [facility] 01/16/25 Studio Designer Relationship Specialty Start Date End Date Latrell Jack MD [address] [place] [address] PCP - General Family Medicine 08/05/23 Latrell Jack MD [address] [place] [address] PCP - ACO Reach 08/16/24 Diomedes Fitzgerald DO [address] [place] [address] Referring Physician Neurology 05/30/24 Sugar Arenas, MARGIN TRIMMER [address] [place] [address] [facility] 01/16/25 Studio Designer Relationship Specialty Start Date End Date Latrell Jack MD [address] [place] [address] PCP - General Family Medicine 08/05/23 Latrell Jack MD [address] [place] [address] PCP - ACO Reach 08/16/24 Diomedes Fitzgerald DO [address] [place] [address] Referring Physician Neurology 05/30/24 Sugar Arenas, MARGIN TRIMMER [address] [place] [address] [facility] 01/16/25 03/04/25 Reason for Visit [...] Diagnoses 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CMS/HCC) Other dysphagia Procedures TX OFFICE/OUTPATIENT NEW HIGH MDM 60 MINUTES Latrell Jack MD [address] [place] [address] Diomedes Fitzgerald DO [address] [place] [address] Referral ID Status Reason Start Date Expiration Date V isits Requested Visits Authorized [id number] Closed Specialty Services Required 02/09/2024 08/07/2024 1 1 Reason Comments Memory Loss Specialty Diagnoses / Procedures Referred By Contac t Referred To Contact Diagnoses Preoperative examination Paraesophageal hernia Procedures REFER TO [facility] - PREOPERATIVE OPTIMIZATION OFFICE/OUTPATIENT NEW HIGH MDM 60 MINUTES Katarzyna Snyder APRN.[facility] [address] [place] [id number] Referral ID Status Reason Start Date Expiration Date V isits Requested Visits Authorized [id number] Closed PCP Requested Referral 05/06/2024 05/04/2025 1 [...] any alcohol or drug abuse patient.[facility] the event this information is protected by the Federal Confidentiality of Alcohol and Drug Abuse Patient Records regulations: The Federal rules restrict any use of the information to criminally investigate or prosecute any alcohol or drug abuse patient.[facility] the event this information is protected by the Federal Confidentiality of Alcohol and Drug Abuse Patient Records regulations: The Federal rules restrict any use of the information to criminally investigate or prosecute any alcohol or drug abuse patient.[facility] the event this information is protected by the Federal Confidentiality of Alcohol and Drug Abuse Patient Records regulations: The Federal rules restrict any use of the information to criminally investigate or prosecute any alcohol or drug abuse patient.[facility] the event this information is protected by the Federal Confidentiality of Alcohol and Drug Abuse Patient Records regulations: The Federal rules restrict any use of the information to criminally investigate or prosecute any alcohol or drug abuse patient.[facility]In the event this information is protected by the Federal Confidentiality of Alcohol and Drug Abuse Patient Records regulations: The Federal rules restrict any use of the information to criminally investigate or prosecute any alcohol or drug abuse patient.[facility] Goals (unrecognized section and content) Goals may be documented in a n alternate section FOR RECORDS PERTAINING TO PATIENTS WHO ARE [...] BE BASED ON THE PRIMARY CLINICAL RECORDS. [employer] provides no warranty or guarantee of the accuracy or completeness of information in this document.
[2025-04-28 08:30] VITALS: BP 166/80; PULSE 62; TEMP 36.2; O2SAT 99
[2025-04-28 09:11] VITALS: BP 169/88; PULSE 60; O2SAT 97
[2025-04-28 09:12] VITALS: BP 161/77; PULSE 66; O2SAT 97
[2025-04-28] MEDS: BUPIVACAINE HCL 0.25% PF 25 MG/10 ML VIAL INJ (09:13)
[2025-04-28] MEDS: IOHEXOL 240 MG/ML - 10 ML VIAL 24 MG INJ (09:13)
[2025-04-28] MEDS: 0.9 % SODIUM CHLORIDE 10 ML SYRINGE - SALINE FLUSH INJ (09:13)
[2025-04-28] MEDS: METHYLPREDNISOLONE ACETATE 80 MG/ML VIAL INJ (09:14)
[2025-04-28] MEDS: LIDOCAINE HCL 2% 400 MG/20 ML MDV INJ (09:14)
--- NOTE | 2025-04-28 09:19 | P.ON_ITS ---
Date of procedure: 04/28/25 Pre-op diagnosis: Pain due to lumbar stenosis with neurogenic claudication Post-op diagnosis: same as pre-op Procedure: Procedure: Right L4-5, L5-S1 transforaminal epidural steroid injection Medications: Bupivacaine 0.25% 2cc, lidocaine 2% 1cc, depomedrol 80mg The patient was seen and examined in the preoperative holding area.? Informed consent was obtained and placed on the chart.? Patient was brought to the medical procedure unit and placed in the prone position where a timeout was completed verifying the correct patient, procedure site, position, and planned special equipment using sterile aseptic technique.? Under direct fluoroscopic visualization a 25-gauge Quincke tipped spinal needle was advanced to the designated neural foramen where contrast dye was injected to show adequate spread.? The needle was inserted at level right L4-5. There was no evidence of vascular or adverse uptake.? Epidural spread was appreciated.? The above- mentioned injectate was then placed in a 1.5 mL aliquot preceded by negative aspiration.? The needle was removed. The needle was inserted and the procedure repeated at level right L5-S1.? The surgery site was covered.? Patient was taken to the postprocedural recovery area and monitored for an appropriate length of time before found suitable for discharge in the accompaniment of a responsible adult. Anesthesia: Local Surgeon: Talat Arguello Pathology: none sent Condition: stable Disposition: no change
== END 2025-04-28 09:22 | disposition home or self-care (01) ==
PROVIDERS: PCP Family Medicine; Visit Provider Anesthesiology
DX: M48.062 Spinal stenosis, lumbar region with neurogenic claudication (principal); M54.50 Low back pain, unspecified
CPT/HCPCS: 64483; 64484; J0665; J1010; Q9966

== ENCOUNTER 2025-05-06 10:48 | Outpatient (RCR) | payer MEDICARE, OTHER, SELFPAY | END 2025-06-14 15:28 | disposition home or self-care (01) | LOC: PT 10:48 | PROVIDERS: PCP Family Medicine; Visit Provider Physician Assistant | DX: M25.812 Other specified joint disorders, left shoulder (principal) | CPT/HCPCS: 97110; 97162; G0283 ==

== ENCOUNTER 2025-05-07 10:06 | Outpatient (OUT) | payer MEDICARE, OTHER, SELFPAY ==
--- OUTSIDE RECORDS SUMMARY | 2012-08-08 03:45 | XMS_ITS | Continuity of Care Document ---
Author Organization [employer] [facility] Address [address] [place] [address] [place] [address] Phone Care Team Providers Care Drug Safety Scientist Name Role Phone Theo Palacios MD Unavailable Unavailable Procedures Procedure Date UPPR GI ENDOSCOPY, DIAGNOSIS OFFICE/OUTPATIENT VISIT, [facility] OFFICE CONSULTATION Advance Directives Directive Yes / No Effective Date File Name No Information Encounters Encounter Description Practice Location Reason(s) For Visit Diagnoses Date Provider Providers Copied on Encounter [employer] [facility], [address] [place] [address], [id number], [place] tel:[phone] [facility] OP No Information Suzanne Venegas. [address] [place] [address], [id number], [place]. tel:[phone] Referring Provider: Theo Izquierdo, [address] [place] [address], [place], [address]. tel:[phone] OFFICE/OUTPATI ENT VISIT, [facility] [employer] [facility], [address] [place] [address], [id number], [place] tel:[phone] [facility] No Information Suzanne Venegas. [address] [place] [address], [id number], [place]. tel:[phone] Referring Provider: Theo Izquierdo, [address] [place] [address] 222, [place], [address]. tel:[phone] OFFICE CONSULTATION [employer] [facility], [address] [place] [address] B, [place], [place], [id number], [place] tel:[phone] [facility] No Information Suzanne Venegas. [address] [facility] [address], [place], [place], [id number], [place]. tel:[phone] Referring Provider: Theo Izquierdo, [address] [facility] [address], [place], [address]. tel:[phone] Family History Family Member Type Diagnosis Age At Onset No Information Payers Payer name Insurance type Covered green party ID Maria Alejandra davis(s) Carla [id number] Social History Type Description Quantity Date Captured [...]
--- OUTSIDE RECORDS SUMMARY | 2025-04-23 11:00 | XMS_ITS | Encounter Summary ---
Author Organization [facility] Address [address] [place] [address] Care Team Providers Care Professional Engineer Name Role Phone Katie Hairston MD Unavailable [phone] Latrell Mckeon MD Primary Care Provider [phone] Source Comments In the event this information is protected by the Federal Confidentiality of Alcohol and Drug AbusePatient Records regulations: The Federal rules restrict any use of the information to criminally investigate or prosecute any alcohol or drug abuse patient.[facility] Reason for Visit * ReasonCommentsEstablished Patient Encounter Details DateTypeDepartmentCare Team (Latest Contact Info)Uxxzyqkxfwn28/15/2025 11:00 AM EDTOffice Visit General Surgery [address] [address] Katarzyna Grover APRN.RETAIL SERVICE REPRESENTATIVE [address] [address] Paraesophageal hernia (Primary Dx) Social History Tobacco UseTypesPacks/DayYears UsedDateSmoking Tobacco: [id number] - 1966Smokeless Tobacco: Never Tobacco Cessation:Counseling Given: Not Answered Comments:Age 16 - 60, 1/2 - 2 PPD, quit while at 2 PPD Alcohol UseStandard Drinks/WeekCommentsNot Currently0 (1 standard drink = 0.6 oz pure alcohol)Area Deprivation IndexAnswerDate RecordedNational Score (1-100), lower number is lower [id number] Score (1-10), lower number is lower igpm098ata from: https://www.neighborhoodatlas.[facility]/. Last address used for [id number] [facility]04/29/2024CommentsNoSex and Gender InformationValueDate RecordedSex Assigned at BirthNot on fileLegal Sex Kxadlw3804/02/2024 3:17 PM EDTGender PstfotzyIiqzau33/15/2024 1:21 PM EDTSexual OrientationNot on filedocumented as of this encounter Last Filed Vital Signs Vital SignReadingTime TakenCommentsBlood Lgvtwkng316/7904/23/2025 11:12 AM EDT Qyfpe738904/23/2025 11:12 AM XUVBhfnlhpsfen10.1 ??C (97 ??F)04/23/2025 11:12 AM EDTRespiratory Rate--Oxygen Saturation--Inhaled Oxygen Concentration--Weight 103.4 kg (228 lb)04/23/2025 11:12 AM FLYCeorzq815.1 cm (5' 5 )04/23/2025 11:12 AM EDTBody Mass Index37.9404/23/2025 11:12 AM EDTdocumented in this encounter Functional Status * Are you deaf or do you have serious difficulty hearing?AnswerDate of CdyotbhfvnIjturgHj41/17/2025 9:53 AM Alessandra Islas RN * Are you blind or do you have serious difficulty seeing, even when wearing glasses?AnswerDate of GnqemvofbmFqlrmjQx61/17/2025 9:53 AM Alessandra Islas RN * Do you have serious difficulty walking or climbing stairs?AnswerDate of GeixjxvllzCqefiiBp40/17/2025 9:53 AM Alessandra Islas RN * Do you have difficulty dressing or bathing?AnswerDate of AssessmentAuthorNo 07/26/2024 9:53 AM Alessandra Islas RN * Because of a physical, mental, or emotional condition, do you have difficulty doing errands alone such as visiting a doctor's office or shopping?AnswerDate of YsqvxhxqjwJmozyvKq73/17/2025 9:53 AM Alessandra Islas RN documented as of this encounter Mental Status * Because of a physical, mental, or emotional condition, do you have serious difficulty concentrating, remembering, or making decisions?AnswerEntry Date EoukmfEj60/17/2025 9:53 AM Alessandra Islas RN documented in this encounter Progress Notes * Katarzyna Grover APRN.RETAIL SERVICE REPRESENTATIVE - 04/23/2025 11:32 AM EDT Images from the original note were not included. [facility] Clinic Date: April 23, 2025 Shey Mckoy 73 year old female CHIEF COMPLAINT: Patient presents for 1 year follow up. HPI: Here for 1 year follow up after laparoscopic paraesophageal hernia repair on 07/24/[address] Barrios. Shey is a 74-year-old female with severe EDWIN and a history of paraesophageal hernia repair (07/24)presenting for a 1-year follow-up. Since her last visit in July, Shey reports a 20 lb weight gain, with her current weight at 203 lbs. She reports frequent loud belching, indigestion, and a sorethroat following episodes of belching. She also experiences a slight burning sensation after belching, which resolves spontaneously. She is currently taking famotidine and pantoprazole, though she isnearly out of pantoprazole and does not plan to refill it. She reports feeling full quickly and experiences pain when eating too quickly, which requires her to pause eating. She denies dysphagia, regu rgitation, or issues with her surgical incisions. She reports increased rectal gas production, particularly when lying down at night. She does not take fiber supplements but notes increased bowel movements when consuming more salads. Surgery Date and Procedure: 07/24/2024 Laparoscopic paraesophageal [...] medications for this visit. REVIEW OF SYSTEMS: Constitutional: (+) weight gain Ears/Nose/Mouth/Throat: (+) sore throat, (-) dysphagia Gastrointestinal: (+) belching, (+) indigestion, (+) heartburn, (+) early satiety, (+) flatulence, (-) regurgitation Musculoskeletal: (+) back pain, (+) knee pain PHYSICAL EXAM: BP 157/79 Pulse 85 Temp 36.1 ??C (97 ??F) (Temporal) Ht 165.1 cm (5' 5 ) Wt 103.4 kg (228 lb) BMI 37.94 kg/m?? General: No acute distress. Abd: No issues with incisions or pain. SURGICAL PATHOLOGY: N/A ASSESSMENT/PLAN: 1. Paraesophageal hernia (K44.9) One-year post-op follow-up after paraesophageal hernia repair on July 24. CT lung report shows no evidence of recurrence; awaiting images for direct review. Swallowing issues have resolved, but patient continues to experience significant belching, and occasional indigestion, which were present preoperatively. - Obtain and review CT images to confirm absence of hernia recurrence; will notify patient of findings. - Refer to gastroenterology for further evaluation and management of persistent belching and indigestion. - Advised patient to eat slowly, consume smaller meals, and consider adding a fiber supplement suchas Metamucil to help manage symptoms. - Discussed weaning off pantoprazole if not refilled, with gradual tapering every other day or every third day. - Educated patient on the importance of weight loss to reduce risk of hernia recurrence; discussed potential use of GLP-1 agonists (Zepbound, Wegovy) for weight management and improvement of severe obstructive sleep apnea; advised patient to discuss these options with PCP. I spent a total of 15 minutes on the date of the service which included preparing to see the patient, wnev-id-ybis patient care, completing clinical documentation, obtaining and/or reviewing separately obtained history, performing a medically appropriate examination, and counseling and educating the patient/family/caregiver. Katarzyna Grover, MSN, RETAIL SERVICE REPRESENTATIVE April 23, 2025 * Trupti Saez MA - 04/23/2025 11:13 AM EDT What is the reason for your visit today? Est Who is your referring physician? Dr. Grover Are you having poor oral intake? NO Have you had unintentional weight loss of 15 lbs/7 Kg in the last 3-6 months? YES Bowels: regular Wound: clean & dry Temperature: No Drains: No documented in this encounter Plan of Treatment Not on file documented as of this encounter Visit Diagnoses Diagnosis Paraesophageal hernia- Primary Diaphragmatic hernia without mention of obstruction or gangrene documented in this encounter Care Teams Team MemberRelationshipSpecialtyStart DateEnd Date Latrell Mckeon MD [address] [place] [address] PCP - GeneralFamily Ajpsypat87/23/24 Katie Hairston MD [address] [place] [id number] Internal Medicine04/02/24documented as of this encounter
--- OUTSIDE RECORDS SUMMARY | 2025-04-29 09:43 | XMS_ITS | Continuity of Care Document ---
Author Organization [facility] Address [address] [place] [address] Phone Care Team Providers [employer] Member Name Role Phone Latrell Jack MD Primary Care Provider Siomara Fitzgerald DO Attending Provider Latrell Jack MD Attending Provider Erik iKm MD Attending Provider Elmer Suh DO Attending Provider Care Teams Patient Care Team Team Status: Active Member Role/Relationship Status Dates Latrell Jack MD Primary Care Provider Active Visit Care Team Team Status: Inactive Member Role/Relationship Status Dates Latrell Jack MD Primary Care Provider Active S tart: February 03, 2025 End: February 03, 2025Fara Torrez ProviderActiveStart: February 03, 2025 End: February 03, 2025 Visit Care Team Team Status: Inactive Member Role/Relationship Status Dates Latrell Jack MD Primary Care Provider Active S tart: April 10, 2025 End: April 10, 2025Luis M Cavanaugh ProviderActiveStart: April 10, 2025 End: April 10, 2025 Visit Care Team Team Status: Active Member Role/Relationship Status Dates Latrell Jack MD Primary Care Provider Active S tart: April 23, 2025 Luis M Romero ProviderActiveStart: April 23, 2025 Visit Care Team Team Status: Inactive Member Role/Relationship Status Dates Latrell Jack MD Primary Care Provider Active S tart: April 24, 2025 End: April 24, 2025Fara Coats ProviderActiveStart: April 24, 2025 End: April 24, 2025 Patient Care Team Team Status: Inactive Member Role/Relationship Status Dates Latrell Jack MD Primary Care Provider Active S tart: April 29, 2025 End: April 29, 2025Luis M Cavanaugh ProviderActiveStart: April 29, 2025 End: April 29, 2025 Chief Complaint and Reason for Visit Chief Complaint Admit Date Hospital FollowUp Nadira April 10, 2025 11:27am BH April 23, 2025 3 :04pm [facility] CONSULT DR JACK LT SHOULDER PAIN WX [facility] April 24, 2025 10:39am Established Patient April 29, 2025 1 :07pm Reason for Visit Admit Date Anxiety February 03, 2025 3:29 pm Major depressive disorder, recurrent, mo derate February 03, 2025 3:29pm Memory loss February 03, 2025 3:29 pm Primary insomnia February 03, 2025 3:29 pm 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, 2025 3:29 pm Obstructive sleep apnea syndrome February 032024 3:29pm Dysfunction of left eustachian tube 2024 11:27am Essential hypertension, benign April 102024 11:27am Primary osteoarthritis, left shoulder Oc 2024 11:27am Tinnitus April 10, 2025 11 :27am Impingement of left shoulder April 10:39am Class 2 severe obesity due t o excess calories with serious comorbidity and April 29, 2025 1:07pm COPD (chronic obstructive pulmonary dise ase) April 29, 2025 1:07pm Essential hypertension, benign April 102024 1:07pm GERD without esophagitis April 29 1:07pm EDWIN (obstructive sleep apnea) April 292024 1:07pm Primary insomnia April 29, 2025 1 :07pm Primary osteoarthritis of both knees Apr 1:07pm Reason for Referral Type Reason(s) Provider Provider Contact Information P shira Address Start Date Dysfunction of left eustachian tube TinnitusPrimary osteoarthritis of left shoulder M19.012 - Primary osteoarthritis, left vdmdgpdlP38.92 - Unspecified Eustachian tube disorder, left ear,H93.12 - Tinnitus, left earHILARY H TIMMIS , MDSEE ORDER- MULTIPLE OFFICES [facility] 2024M19.012 - Primary osteoarthritis, left shoulderDetermined by PatientOctober 2024 Allergies, Adverse Reactions, Alerts Allergen Type Severity Reaction Last Updated Verified Status No Known Allergies Allergy Unknown April 29, 2025 1:20pmYesActive Social History Smoking Status Status Start Date End Date Date of Observa tion Ex-smoker (finding) April 10, 2025 11:50am Observation Status Observation Response Date of Response Legal Sex Female (finding) Sex Assigned At [facility] 1950 Problems Active Problems Problem Diagnosis/Recorded Date Onset Date Stat us Class 2 severe obesity due t o excess calories with serious comorbidity and body mass index (BMI) of 36.0 to 36.9 in adult April 09, 2025 1:17pm Unknown Active Medicare annual wellness vis it, subsequent April 29, 2025 1:29pm Unknown Active Impingement of left shoulder April 24, 2025 11:35a m Unknown Active Lower extremity edema April 09, 2025 1:18pm Unknown Active Primary insomnia February 03, 2025 4:30pm Unknown A ctive EDWIN (obstructive sleep apnea) April 09, 2025 1:19pm Unknown Active Dysfunction of left eustachian tube April 10, 2025 12:19pm Unknown Active Primary osteoarthritis, left shoulder April 10 12:11pm Unknown Active Primary osteoarthritis of both knees April 09, 2025 1:20pm Unknown Active Essential hypertension, benign April 09, 2025 1:18p m Unknown Active Dyslipidemia April 09, 2025 1:18pm Unknown Act owen Memory loss February 03, 2025 4:47pm Unknown Activ e Anxiety February 03, 2025 4:47pm Unknown Activ e Senile dementia April 09, 2025 1:20pm Unknown Active TIA (transient ischemic attack) April 09, 2025 1:20 pm Unknown Active 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, 2025 4:47pm Unknown Act owen Former smoker December 12, 2024 7:07pm Unknown Activ e Major depressive disorder, r ecurrent, moderate December 13, 2024 10:06am Unknown Active Seasonal allergic rhinitis due to pollen April 09, 2025 1:20pm Unknown Active GERD without esophagitis April 10, 2025 12:05pm Unk nown Active Prediabetes April 09, 2025 1:19pm Unknown Act owen Degenerative lumbar spinal stenosis April 09, 2025 1:18pm Unknown Active COPD (chronic obstructive pu lmonary disease) December 12, 2024 7:06pm Unknown Active Tinnitus April 10, 2025 12:18pm Unknown Ac tive Stroke April 09, 2025 1:20pm Unknown Act owen Osteopenia of lumbar spine April 09, 2025 1:19pm Un known Active Inactive/Resolved Problems Problem Diagnosis/Recorded Date Onset Date Stat us Sleep apnea December 12, 2024 7:05pm Unknown Resolv ed Dysphagia April 09, 2025 1:18pm Unknown Res olved Medications Medication Status Dose Units Route Directions Qty Days Refills S tart Date Stop Date End Date Reason(s) Instructions Adherence Donepezil 10 mg tablet Active 10 MG PO Bedtime 30 30 2 April 23, 2025 9:36am Complies with drug therapyAtorvastatin 40 mg xxkfqqJferti96QZBUArwftRbbz 2024 12:00amComplies with drug therapyDonepezil 10 mg xornoaMiueirzeguzk95OVZK BedtimeJune 2024 12:00amOctober 2024 9:36amLosartan 50 mg tablet Usvtfamzarum47ULFJMsiiu dailyJune 2024 12:00amJuly 2024 3:55pm Zolpidem 10 mg eyznvsGfdkixtzdjyf28LLRLVnszuaf as needed for sleepJune 2024 12:00amOctober 2024 11:48amZonisamide 50 mg jfxwqttJneujtiwijxz89GAZLFelki dailyJune 2024 12:00amOctober 2024 1:42pmFluticasone Propionate 50 mcg/actuation spray,jezxcaaqjwUpufjh7IBSNDECLCXIVLTVFzkzwFhsx 2024 12:00am Complies with drug therapyMethocarbamol 750 mg wqggihUbwplonqexii262ASAXTeeq times daily as needed for painJune 2024 12:00amJuly 2024 3:55pm Tiotropium Rindge (Spiriva With Handihaler) 18 mcg capsule, w/inhalation device Zlcftd6HWGAHTNFADIUVTqhrnEjwy 2024 12:00amComplies with drug therapy Mirtazapine 7.5 mg TabletDiscontinued7.5MGPODaily at xjwpcnl22065Zklm 2024 12:00amJuly 2024 3:55pmZonisamide 50 mg ngdotqkIiumtj734VBVVLsmhuFuekqgu 2024 1:36pmComplies with drug therapyLosartan 50 mg ewglqlXaggdlbxvold09YF POTwice dailyJuly 2024 12:00amOctober 2024 1:27pmMethocarbamol 500 mg pcexchMthgarlxhjzq581DUSLtl neededJuly 2024 12:00amOctober 2024 1:31pmFamotidine 40 mg xsiyqkNjdlbhymbvrn17ZHTBTpwylGrru 2024 12:00am April 09, 2025 1:42pmPantoprazole 40 mg tablet,delayed release (DR/EC) Thjthmavliut63QHRLCutecQpra 2024 12:00amOctober 2024 1:22pmAspirin 81 mg upkseqVqxers74FVCDQfmvwGurz 2024 12:00amComplies with drug therapy Mirtazapine 15 mg ujlrffGcbbsg43TFINZuast at bedtimeJuly 2024 12:00am Complies with drug therapyEszopiclone (Lunesta) 2 mg hcjgdoXlolej2GVZJKobgm at cjlqvvg73021Hmiz 2024 12:00amPrimary insomnia Primary insomniaComplies with drug therapyFamotidine 40 mg qtecmwVtwkvi08WCWH Twice dailyOctober 2024 1:27pmComplies with drug therapyLosartan 100 mg ktqyjqGcoxdf530EYJEYvvifXqjmbmc 2024 12:00amComplies with drug therapy Methocarbamol 750 mg mmtewzExtqao216ABPRYlgk times daily as needed for muscle spasmsOctober 2024 12:00amComplies with drug therapyAlbuterol Sulfate 2.5 mg /3 mL (0.083 %) solution for nebulizationActive2.5MGINHALATIONEvery 4 hours as neededOctober 2024 12:00amUnknownCalcium Carbonate (Calcium 600) 600 mg calcium (1,500 mg) zaxjflKwxhmk192KDAJLlmmj dailyOctober 2024 12:00am UnknownDocusate Sodium 100 mg zwwowijTkwdjkxiantd791PJPDMghju daily as needed April 09, 2025 12:00amOct2024 11:47amMultivitamin,Tx-Minerals (Multi-Vitamin Hp/Minerals) okteafmJcjudt6LWRLZBevksOqazwog 1st, 2025 12:00am Complies with drug therapyCholecalciferol (Vitamin D3) 25 mcg (1,000 unit) uvzfxhJnjgqm60VDCQLYccbmFmtlolf 1st, 2025 12:00amUnknownVitamin E Mixed 400 unit fjnwoxCemnoj565XLXKWLVvlkdVynyrij 1st, 2025 12:00amUnknownAmlodipine (Norvasc) 5 mg fjsnnzPuxloq5ARUEKnmfc988Xwcuoky 21st, 2025 12:00amComplies with drug therapy Tirzepatide (Weight Loss) (Zepbound) 2.5 mg/0.5 mL pen injectorActive2.5MGSUBCUT every xwtm28Udtmgwv2024 12:00amfor 4 weeksComplies with drug therapy Vital Signs Vital Reading Result Reference Range Collection Date/Time Height 63 [in_i] February 03, 2025 3:76nhJhkuxn57.42 kgJuly 2024 3:56pmHeart Rate90 /min 60-100July 2024 3:56pmOxygen saturation by Pulse jaurotcw10 %95-100July 2024 3:56pmBP Sgsuvpjf406 mm[Hg]100-140July 2024 3:56pmBP Diastolic 96 mm[Hg]60-100July 2024 3:56pmBMI (Body Mass Index)38.4 kg/m2July 2024 3:12nlCoznvc70 [in_i]April 10, 2025 11:55znPxfnvu586.32 kgOct2024 11:46amBody Dbfystufbcy86.1 [degF]97.6-99.0Oct2024 11:46amHeart Isym291 /tee50-623Tjayxin 2nd, 2025 11:46amRespiratory rate24 /shu33-39Ltptboy 2nd, 2025 11:46amOxygen saturation by Pulse wtygydil94 %95-100April 10, 2025 11:46amBP Sghtjpbv725 mm[Hg]100-140October 2024 11:46amBP Fvenazezd96 mm[Hg]60-100Oct2024 11:46amBMI (Body Mass Index)39.4 kg/s7Ihzdmoo2024 11:39yeFguhqx97 [in_i]April 24, 2025 11:39vuJflmnn357.00 kgOcthealthsouth [facility] 2024 11:06amBMI (Body Mass Index)39.3 kg/f0Hwerisc 2024 11:06am Kqwdsv11 [in_i]April 29, 2025 1:96xbAizdkg029.96 kgOct2024 1:20pm Body Xtwhzovepfm03.1 [degF]97.6-99.0Oct[facility] 2024 1:20pmHeart Rate96 /min 60-100Oct2024 1:20pmRespiratory rate20 /htq89-39Vkjhcti 21st, 2025 1:20pmOxygen saturation by Pulse pazzeyhf66 %95-100Oct2024 1:20pmBP Zorwqtcx391 mm[Hg]100-140April 29, 2025 1:20pmBP Wiaiuriic09 mm[Hg]60-100 April 29, 2025 1:20pmBMI (Body Mass Index)38.9 kg/h1Obmecve 2024 1:20pm Advance Directives Advance Directive Response Recorded Date/ Time Advance Directives No December 17 2:30pm Insurance Providers Guarantor Shey Jv Obrien Address [address] [address]Contact Info.Home Phone: Coverage Status Update:2025 Payer Group Member ID Coverage Type Subscriber Relationship to Subscriber Effective Date Expiration Date Medicare [id number] Lee Mchenry Id: [id number] [address] [address] Home Phone: SelfHumana [facility] PFFS [id number] Lee Camille Id: [id number] [address] [address] Home Phone: SelfRegular Lee Mchenry Id: [id number] [address] [facility] [address] Home Phone: self Encounters Encounter Location(s) Arrival/Admit Date Discharge/Departure Date Discharge/Departure Disposition Provider(s) Departed Physician/ Provider Office Visit -[facility] Neurology Jay February 03, 2025 3:29pm February 03, 2025 4:34pm Discharged to home care or self care (routine discharge) Siomara Fitzgerald DO Departed Physician/ Provider Office Visit -[facility] Family Medicine [place] April 10, 2025 11:27am April 10, 2025 12:14pm Discharged to home care or self care (routine discharge) Latrell Jack MD Registered [facility] April 23, 2025 3 :04pm Erik Kim [facility] Office [facility] Orthopedics [facility] 2024 10:39amOct[facility] 2024 11:35am Discharged to home care or self care (routine discharge)Elmer Suh DO Departed Physician/Provider Office Visit-[facility] Family Medicine [facility] 2024 1:07pmOctober 2024 1:42pmDischarged to home care or self care (routine discharge)Latrell Jack MD Recent Diagnosis Onset Date Admit Date Anxiety [...] 2025 11:27am Tinnitus Unknown April 10 11:27am Impingement of left shoulder Unknown Apr eleni 2024 10:39am Class 2 severe obesity due t o excess calories with serious comorbidity and Unknown April 29, 2025 1:07pm COPD (chronic obstructive pulmonary disease) Unk nown April 29, 2025 1:07pm Essential hypertension, benign Unknown O ctober 2024 1:07pm GERD without esophagitis Unknown April 29, 2025 1:07pm EDWIN (obstructive sleep apnea) Unknown Oc tober 2024 1:07pm Primary insomnia Unknown April 29, 2 025 1:07pm Primary osteoarthritis of both knees Unknown April 29, 2025 1:07pm Assessments Diagnosis Onset Date Resolution Status Admit Date Anxiety acuteJuly 2024 3:29pmMajor depressive disorder, recurrent, moderateacute Selena 2024 3:29pmMemory lossacuteJuly 2024 3:29pmPrimary insomnia acuteJuly 2024 3:29pmPseudodementiaacuteJuly 2024 3:29pmObstructive sleep apnea syndromenoneactiveJuly 2024 3:29pmDysfunction of left eustachian tubeacuteOctober 2024 11:27amEssential hypertension, benignacute April 10, 2025 11:27amPrimary osteoarthritis, left shoulderacuteOctober 2024 11:27amTinnitusacuteOctober 2024 11:27amImpingement of left shoulder acuteOctober 2024 10:39amClass 2 severe obesity due to excess calories with serious comorbidity andacuteOctober 2024 1:07pmCOPD (chronic obstructive pulmonary disease)acuteOctober 2024 1:07pmEssential hypertension, benignacuteOctober 2024 1:07pmGERD without esophagitisacute April 29, 2025 1:07pmOSA (obstructive sleep apnea)acuteOctober 2024 1:07pmPrimary insomniaacuteOctober 2024 1:07pmPrimary osteoarthritis of both kneesacuteOctober 2024 1:07pm Plan of Treatment Author Siomara Fitzgerald [facility] HospitalAuthoredJuly 2024 4:17kh20-ezvq-wls female with a long history of obstructive sleep apnea. She is [...] was counseled on the risks of stroke, SC, and sudden with EDWIN, along with the need for compliance with the CPAP/BiPAP treatment. The diagnosis was all discussed with the patient.?? All questions were answered and they agreed with the treatment plan.?? Patient will call if there are any new issues or questions. Author Latrell Jack [facility] HospitalAuthoredOctober 2024 12:20pmContinued pain and degenerative changes on x-ray. Refer to ortho for possible injection. Continued symptoms and no improvement with treatment. Continue flonase and refer to ENT. Continued symptoms and no improvement with treatment. Continue flonase and refer to ENT. BP controlled and monitor PRN. Author Lizzie Little [facility] HospitalAuthoredOctober 2024 11:37amDiscussed with patient and company on the patient's symptoms, exam, and imaging. Likely etiologies of the patient's symptoms were discussed. Patient has symptoms consistent with left shoulder strain. We discussed various treatment options. At this point we will pursue conservative management in the form of formal physical therapy and cortisone injections. We discussed an injection at this time and patient wishes to proceed. Under sterile condition, 1 cc of Kenalog/4 cc bupivacaine were injected into the left shoulder. Patient tolerated the procedure well. We will also begin formal physical therapy. Therapy prescription given to the patient. Patient will follow-up in 8 weeks for reevaluation. Future Tests Future scheduled test information is unavailable Pending Tests Pending diagnostic test information is unavailable Future Visits Future appointment information is unavailable Future Procedures Future procedure information is unavailable Future Medications Future medication information is unavailable Patient Instructions Patient instructions are unavailable
--- OUTSIDE RECORDS SUMMARY | 2025-05-07 10:10 | XMS_ITS | Clinical Summary ---
Author Organization [facility] Address [address] [place] [address] Care Team Providers Care [employer]ident Responder Name Role Phone Latrell Jack MD Primary Care Provider [phone] Siomara Fitzgerald DO Unavailable [phone] Latrell Jack MD Unavailable Allergies No known active allergies Medications MedicationSigDispense QuantityRefillsLast FilledStart DateEnd DateStatus aspirin 81 MG EC tablet Take 1 tablet by mouth 1 (one) time each day at the same timeActive calcium carbonate 1500 (600 Ca) MG tablet Take 1 tablet by mouth in the morning and 1 tablet in the evening. Take with meals.Active cholecalciferol (Vitamin D-3) 25 MCG (1000 UT) capsule Take 1 capsule by mouth 1 (one) time each day at the same timeActive alpha tocopherol (Vitamin E) 400 units capsule Take 1 capsule by mouth 1 (one) time each day at the same timeActive albuterol (2.5 MG/3ML) 0.083% nebulizer solution Indications:Chronic obstructive pulmonary disease, unspecified COPD type (HCC) Take 3 mL (2.5 mg) by nebulization every 4 (four) hours if needed for wheezing or shortness of breath 150 mL ctive fluticasone (Flonase) 50 MCG/ACT nasal spray Indications:Seasonal allergic rhinitis due to pollenUSE 2 SPRAYS IN EACH NOSTRIL DAILY 48 mL ctive famotidine (Pepcid) 40 MG tablet Indications:Hiatal hernia with gastroesophageal reflux disease without esophagitisTAKE 1 TABLET TWICE DAILY 180 tablet 311/06/2024Active Multiple Vitamin (multivitamin) capsule Take 1 capsule by mouth DailyActive pantoprazole (ProtoNix) 40 MG EC tablet Indications:Hiatal hernia with gastroesophageal reflux disease without esophagitisTake 1 tablet (40 mg) by mouth in the morning and 1 tablet (40 mg) before bedtime. 180 tablet 4Active Docusate Sodium (DSS) 100 MG capsule Take 100 mg by mouth every 12 (twelve) hours if dchvft715Active acetaminophen (Tylenol) 500 MG tablet Take 500 mg by mouth every 6 (six) hours if needed for mild pain or moderate pain Take 2 tabs every6 hours as needed for pain.5Active zonisamide (Zonegran) 50 MG capsule Take 100 mg by mouth Daily5Active Spiriva HandiHaler 18 MCG inhalation capsule Indications:Chronic obstructive pulmonary disease, unspecified COPD type (HCC) PLACE 1 CAPSULE (18 MCG) INTO INHALER AND INHALE IN THE MORNING 30 capsule 1105Active donepezil (Aricept) 10 MG tablet Indications:Memory lossTAKE 1 TABLET BY MOUTH EVERYDAY AT BEDTIME 90 tablet 1045Active eszopiclone (Lunesta) 2 MG tablet Take 2 mg by mouth at axygbna86/28/2025Active losartan (Cozaar) 100 MG tablet Indications:Essential hypertension, benignTake 1 tablet (100 mg) by mouth Daily 30 tablet 505Active atorvastatin (Lipitor) 40 MG tablet Indications:DyslipidemiaTAKE 1 TABLET BY MOUTH AT BEDTIME 90 tablet 3085Active methocarbamol (Robaxin) 750 MG tablet Indications:Degenerative lumbar spinal stenosisTAKE 1 TABLET BY MOUTH 4 TIMES A DAY NEEDED FOR MUSCLE SPASMS 60 tablet 5Active Active Problems ProblemNoted DateDiagnosed DateFormer hnpbob4502/24/2025 Assessment & Plan (02/24/2025 4:01 PM EDT): Quit in 2011 but prior 1 PPD for 40 plus years. Check LDCT chest. Degenerative lumbar spinal lftyukhs00/28/2025 Assessment & Plan (12/04/2024 2:25 PM EDT): Recent flare and increased pain. Treat with prednisone. Use robaxin for spasms and norco PRN. Follow up with pain management next week as scheduled. Medicare annual wellness visit, /18/2025 Assessment & Plan (08/27/2024 11:04 AM EST): Due for labs. Discussed proper diet and regular aerobic exercise. Need aerobic exercise 5-6 days a week for 30 minutes at a time. Smaller portions and limit total calories. Colonoscopy every 10 years. Tetanus every 10 years. Advised not to smoke. Discussed daily Aspirin therapy. Class 2 severe obesity due to excess calories with serious comorbidity and body mass index (BMI) of36.0 to 36.9 in adult03/03/2024 Assessment & Plan (08/27/2024 11:03 AM EST): Weight loss indicated. Assessment & Plan (05/15/2024 10:33 AM EST): Weight loss indicated. Kgpdll5503/03/20242338Jfpaayjsv47/02/2024 Assessment & Plan (02/09/2024 10:30 AM EDT): Problems swallowing and refer to GI for endoscopy. Senile ipoaqzke37/02/2024 Assessment & Plan (08/27/2024 11:05 AM EST): Follow with neurology. Assessment & Plan (02/09/2024 10:32 AM EDT): Worsening memory and family history of Alzheimer's. Start aricept and refer to neurology for evaluation. Rkngrqjsife80/04/2024Essential hypertension, iigqhi1308/11/2023 Assessment & Plan (02/24/2025 4:00 PM EDT): [...] and monitor PRN. Primary osteoarthritis of both knees08/11/2023 Assessment & Plan (02/24/2025 4:01 PM EDT): Pain stable and use OTC PRN. Assessment & Plan (05/15/2024 10:35 AM EST): Pain stable and use OTC PRN. Assessment & Plan (02/09/2024 10:31 AM EDT): Pain stable and use OTC PRN. Assessment & Plan (08/11/2023 10:22 AM EST): Pain stable and use OTC PRN. COPD (chronic obstructive pulmonary disease)08/11/2023 Assessment & Plan (02/24/2025 4:00 PM EDT): [...] stable and continue spiriva. Use albuterol PRN. Lpcomlvedhxr06/02/2024Lower extremity edema08/11/2023Osteopenia of lumbar spine 08/11/2023TIA (transient ischemic attack)08/11/2023OSA (obstructive sleep apnea) 08/11/2023 Assessment & Plan (05/15/2024 10:35 AM EST): Sleeping well with CPAP and continue nightly. The patient is benefiting from PAP therapy. Assessment & Plan (02/09/2024 10:31 AM EDT): Sleeping well with CPAP and continue nightly. The patient is benefiting from PAP therapy. Primary ybrrscnm47/02/2024 Assessment & Plan (02/24/2025 4:01 PM EDT): Sleeping well with lunesta and continue. Assessment & Plan (05/15/2024 10:35 AM EST): Sleeping well with ambien and continue. Assessment & Plan (02/09/2024 10:31 AM EDT): Sleeping well with ambien and continue. Assessment & Plan (08/11/2023 10:22 AM EST): Sleeping well with ambien and continue. Encounter for long-term (current) use of sruvcjqfedi13/02/2024Seasonal allergic rhinitis due to qcvfaf4908/11/2023 Assessment & Plan (08/11/2023 10:23 AM EST): Increased symptoms and use flonase daily. Resolved Problems ProblemNoted DateDiagnosed DateResolved KgyvDntwfjaebwa80 Hiatal hernia with gastroesophageal reflux disease without ujqnbyiyzge09/02/2024 12/04/2024 Assessment & Plan (05/15/2024 10:34 AM EST): GERD controlled but still problems swallowing. Scheduled for surgery 07/24. Assessment & Plan (02/09/2024 10:31 AM EDT): Denies reflux but developed dysphagia. Increase protonix. Assessment & Plan (08/11/2023 10:22 AM EST): Symptoms controlled with protonix and continue. Morbid obesity due to excess wmefjbxd24/ Encounters DateTypeDepartmentCare SenvFmkswhfzqid98/26/2025Results Follow-Up [facility] [address] [place] [address] LUNG SCREENING LOW DOSE03/04/2025linisync Result Encounter [facility] External Department Unsolicited Latrell Jack MD 03/04/2025Patient Outreach [facility] [address] [place] [address] Sugar Arenas, DI[employer] MOUNTER 03/01/2025Refill [facility] [address] [place] [address] Latrell Jack MD Degenerative lumbar spinal qblinyqx36/22/2025Refill [facility] [address] [place] [address] Latrell Jack MD Pcemgusedhjw12/21/2025Results Follow-Up [facility] [address] [place] [address] Latrell Jack MD Bilateral screening lauqqdspw07/21/2025linisync Result Encounter [facility] External Department Unsolicited Latrell Jack MD 02/26/2025bstract [facility] [address] [place] [place] [address] Latrell Jack MD 02/24/2025 10:30 AM EDTOffice Visit [facility] [address] [place] [address] Latrell Jack MD Essential hypertension, benign (Primary Dx); Chronic obstructive pulmonary disease, unspecified COPD type (HCC); Primary insomnia; Primary osteoarthritis of both knees; Breast cancer screening by mammogram; Former oomjyl2302/24/2025amboo flowsheet [facility] [address] [address] Latrell Jack MD 02/06/2025Patient Outreach [facility] [address] [place] [address] Sugar Arenas, DI[employer] MOUNTER 02/04/2025Telephone [facility] [address] [place] [address] Latrell Jack MD from Last 3 Months Immunizations ImmunizationAdministration DatesNext DuePneumococcal Conjugate PCV 13011/25/2021 Family History Medical HistoryRelationNameCommentsCancerFatherDiabetesFather's Brother Alzheimer's diseaseFather's SisterKatherine RankinAlzheimer's diseaseMotherMadge GrinnellArthritisMotherMadge GrinnellHeart attackMotherMadge Earline ParkinsonismSiblingRelationNameStatusCommentsFatherDeceasedFather's Brother Father's SisterKatherine RankinMotherMadge GrinnellDeceasedSiblingAlive Social History Tobacco UseTypesPacks/DayYears UsedDateSmoking Tobacco: FormerCigarettes1.270.7 07/10/1967 - 01/08/2012Smokeless Tobacco: Never Tobacco Cessation:Counseling Given: Not Answered Alcohol UseStandard Drinks/WeekCommentsYes4 (1 standard drink = 0.6 oz pure alcohol)Caffeine: 2-3 cups per eauA3446 Health LiteracyAnswerDate RecordedHow often do you need to have someone help you when you read instructions, pamphlets, or other written material from your doctor or pharmacy?Sometimes 02/02/2024Social Connection and Isolation PanelAnswerDate RecordedIn a typical week, how many times do you talk on the phone with family, friends, or neighbors?More than three times a week02/02/2024How often do you get together with friends or relatives?Three times a week02/02/2024How often do you attend religious or religion services?Patient iogfglya20/26/2024o you belong to any clubs or organizations such as religious groups, unions, fraternal or athletic lavell ups, or school groups?Patient drenzvmu10/26/2024How often do you attend meetings of the clubs or organizations you belong to?Patient qxgmuuvc98/26/2024re you , , , , never , or living with a partner? Never voloxjx8502/02/2024UDIT-CAnswerDate RecordedQ1: How often do you have a drink containing alcohol?Monthly or less03/03/2024Q2: How many drinks containing alcohol do you have on a typical day when you are drinking?3 or Q3: How often do you have six or more drinks on one occasion?Less than monthly 03/03/2024Overall Financial Resource Strain (CARDIA)AnswerDate RecordedHow hard is it for you to pay for the very basics like food, housing, medical care, and heating?Patient mclysuic88/26/2024HQ-2AnswerDate RecordedPatient Health Questionnaire-2 Lkfwe016[facility] [place] [facility] - Occupational Stress QuestionnaireAnswerDate RecordedDo you feel stress - tense, restless, nervous, or anxious, or unable to sleep at night because yourmind is troubled all the time - these days?To some jfpakp2102/02/2024Exercise Vital Sign AnswerDate RecordedOn average, how many days per week do you engage in moderate to strenuous exercise (like a brisk walk)?Patient /26/2024On average, how many minutes do you engage in exercise at this level?Patient declined 02/02/2024Hunger Vital SignAnswerDate RecordedWithin the past 12 months, you worried that your food would run out before you got the money to buymore.Patient qifkcrbz52/26/2024Within the past 12 months, the food you bought just didn't last and you didn't have money to get more.Patient fuaomepj78/26/2024RAPARE - TransportationAnswerDate RecordedIn the past 12 months, has lack of transportation kept you from medical appointments or from getting medications?No 02/02/2024In the past 12 months, has lack of transportation kept you from meetings, work, or from getting things needed for daily living?No02/02/2024 Housing Stability Vital SignAnswerDate RecordedIn the last 12 months, was there a time when you were not able to pay the mortgage or rent on time?No02/02/2024In the past 12 months, how many times have you moved where you were living?0 02/02/2024t any time in the past 12 months, were you homeless or living in a fci (including now)?No02/02/2024CommentsUnknownSex and Gender InformationValueDate RecordedSex Assigned at BirthNot on fileLegal SexFemale 09/21/2022 7:08 PM EDTGender IdentityNot on fileSexual OrientationNot on file Last Filed Vital Signs Vital SignReadingTime TakenCommentsBlood Kcuvjbhu294/7608 11:00 AM EDT Ysfiy61421/18/2025 11:00 AM YIAYhdlyntyvyg74.2 ??C (97.1 ??F)02/24/2025 11:00 AM EDTRespiratory Hveq818202/24/2025 11:00 AM EDTOxygen Kubtlatihm21%02/24/2025 11:00 AM EDTInhaled Oxygen Concentration--Yecaus170 kg (226 lb)02/24/2025 11:00 AM EDT Wvxsnf314 cm (5' 3 )02/24/2025 11:00 AM EDTBody Mass Index40.03002/24/2025 11:00 AM EDT Plan of Treatment DateTypeDepartmentCare Team (Latest Contact Info)Zdgupjerbls27/26/2025 3:30 PM ESTOffice Visit [facility] [address] [facility] [place] [address] Sugar Cruz S, AUD [address] [facility] [place] [address] 06/09/2025 1:10 PM ESTOffice Visit [facility] [address] [facility] [address] [place] [address] Layla Houston MD [address] [facility] [address] [place] [address] Health MaintenanceDue DateLast DoneCommentsCT Xyvthzgtdrys56/15/1952FIT-DNA 1950FIT1950FOBT1950Lung Cancer Screening Shared Decision Jymido12 1950 4003Kudsyupfavbsn71/15/1952Influenza Vaccine (#1)2025 05/15/2024, 05/03/2022, 04/12/2021, Additional history existsMedicare Annual Wellness (AWV)/0761Petzbfmgx01/21/202608/, 02/27/2025, 11/28/2023, Additional history czewzfUgkvxilnjdn02/05/203404/11/2023, 10/13/2023 Colorectal Cancer Ebkrdydof82/05/2034neumococcal Vaccine: 65+ YearsCompleted 11/25/2021, 05/16/2019, 01/31/2018 Procedures Procedure NamePriorityDate/TimeAssociated DiagnosisCommentsCT LUNG SCREENING LOW DOSE03/04/2025 2:31 PM EDT BI MAMMOGRAM SCREENING PTFWAPMJAKgxbbmi99/21/2025 2:18 PM EDT Breast cancer screening by mammogram MM TOMOSYNTHESIS SCREENING BI02/27/2025 2:07 PM EDT from Last 3 Months Results * CT LUNG SCREENING LOW DOSE (03/04/2025 2:31 PM EDT)Anatomical RegionLaterality ModalityOtherSpecimen (Source)Anatomical Location / LateralityCollection Method / VolumeCollection TimeReceived Time03/04/2025 2:31 PM EDT Narrative 03/04/2025 2:33 PM EDT [facility] ?[address] ? [place] [address] ? CT Scan Report ? Signed ? Patient: KARYN,SHEY L ?MR#: [id number] ?? : 1950 ?Acct:[id number] ?? Age/Sex: 74 / F ?ADM Date: 08/26/25 ?? Loc: CT ? Attending Dr: Laterll Jack M.D. ? Ordering Physician: Latrell Jack M.D. ?? Date of Service: 03/04/25 ?? Procedure(s): CT lung screening low-dose ?? Accession Number(s): [id number] ? cc: Latrell Jack M.D. ? [facility] ? [address] ? [place] [address] ? Patient Name: ?? SHEY BOSS ? MRN: [facility]:[id number] ? date: 1950 ?Sex: F ?? Assigned Patient Location: CT ?? Current Patient Location: CT ?? Accession/Order Number: [id number] ?? Exam Date: 03/04/2025 ??13:52 ?Report Date: 03/04/2025 ??14:31 ? At the request of: ?? LATRELL ??GUERO ? Procedure: ??CT lung screening low-dose ? CT CHEST WITHOUT CONTRAST, LOW DOSE SCREENING: ? CLINICAL DATA: A 74-year old former smoker, smoking for 88 pack-years. ? COMPARISON: CT 07/28/2022 ? TECHNIQUE: Noncontrast axial CT scan images of the chest were obtained under ?? the low dose screening CT protocol. ??Coronal and sagittal reconstructed images ?? were also submitted. ? FINDINGS: ? Mediastinum : Suboptimal evaluation due to low-dose technique. ??Thoracic aorta ?? appears normal in caliber. ??Pulmonary trunk appears nondilated. ??No ?? pericardial effusion. ??No lymphadenopathy. ??The esophagus is grossly ?? unremarkable. ? Lungs: No focal consolidation, pneumothorax or pleural effusion. ??Trachea and ?? distal airways appear patent. ??Diffuse fibrotic changes without honeycombing. ? No suspicious noncalcified pulmonary nodule or mass. ? Upper abdomen: No acute findings. ? Bony thorax and chest wall: Soft tissues surrounding the chest wall ?? demonstrate no acute findings. ??Osseous structures demonstrate degenerative ?? change. ? CT/CT lung screening low-dose ?? IMPRESSION: ? NO SUSPICIOUS PULMONARY NODULE OR MASS. ? LUNG - RADS Version 1.0 Assessment: Category 1, Negative (No nodules and ?? definitely benign nodules). ?? Management: Continue annual lung screening with LDCT in 12 months. ? Impression dictated by: Claude Bahena Jr., D.O. ??03/04/2025 2:31 PM ? Dictation Location: [place] [address] ? Electronically authenticated by: [id number] ??Y ?? Date: 03/04/2025 ??14:31 ? Dictated By: ?Claude Bahena M.D. ? Signed By: ?03/04/25 1433 ? DD/ 1431 ? TD/TT: ? Cloth Opener Hand: Procedure Note Radiology, Radiologist, - 03/04/2025 [place] [address] CT Scan Report Signed Patient: SHEY BOSS LMR#: [id number] : 1950cct:[id number] Age/Sex: 74 / FADM Date: 03/04/25 Loc: CT Attending Dr: Latrell Jack M.D. Ordering Physician: Latrell Jack M.D. Date of Service: 03/04/25 Procedure(s): CT lung screening low-dose Accession Number(s): [id number] cc: Latrell Jack M.D. The [place] [id number] Patient Name: SHEY BOSS MRN: [id number] date: 1950 Sex: F Assigned Patient Location: CT Current Patient Location: CT Accession/Order Number: [id number] Exam Date: 03/04/2025 13:52 Report Date: 03/04/2025 [...] Jr., D.O. 03/04/2025 2:31 PM Dictation Location: [place] [address] Electronically authenticated by: [id number] Y Date: 4:31 Dictated By: Claude Bahena M.D. Signed By:03/04/25 1433 DD/ 1431 TD/TT: Cloth Opener Hand: Authorizing ProviderResult TypeResult StatusLatrell Jack MDCLINISYNC IMAGING Final Result * Bilateral screening mammogram (02/27/2025 2:18 PM EDT) Narrative Authorizing ProviderResult TypeResult StatusLatrell Jack MDIMG BI PROCEDURES Final ResultPerforming OrganizationAddressCity/State/ZIP CodePhone Number [facility] [address] [place] [address], * MM TOMOSYNTHESIS SCREENING BI (02/27/2025 2:07 PM EDT)Anatomical Region LateralityModalityOtherSpecimen (Source)Anatomical Location / Laterality Collection Method / VolumeCollection TimeReceived Time02/27/2025 2:07 PM EDT Narrative 02/27/2025 2:07 PM EDT [facility] ?[address] ? [place] [address] ? Mammography Report ? Signed ? Patient: KARYN,SHEY L ?MR#: [id number] ?? : 1950 ?Acct:[id number] ?? Age/Sex: 74 / F ?ADM Date: 08/21/25 ?? Loc: MAMMO ? Attending Dr: Latrell Jack M.D. ? Ordering Physician: Latrell Jack M.D. ?Results: ? Date of Service: 02/27/25 ?Follow Up: ? Procedure(s): MM tomosynthesis screening BI ?? Accession Number(s): [id number] ? cc: Latrell Jack M.D. ? Patient Name: ? SHEY BOSS ? MR#: [id number] ? : 1950 ? Exam Date: 02/27/2025 ?? Ordering Doctor: DR LATRELL JACK . ? RADIOLOGY REPORT ? PROCEDURE: ? MM TOMOSYNTHESIS SCREENING BI ? COMPARISON: ? MM TOMOSYNTHESIS SCREENING BI, 11/28/2023. ??MG MAMM SCREEN 3D ?? RONALD CAD, 11/24/2022. ??MG MAMM SCREEN 3D RONALD CAD, 11/11/2021. ??MG MAMM SCREEN 3D ?? RONALD CAD, 11/05/2020. ? INDICATIONS: ? Screenng ? Calculator Name ? NCI Breast Cancer Risk Assessment Tool ?? 5 Year Breast Cancer Risk ? 2.00% ?? Lifetime Breast Cancer Risk ? 4.80% ?? Personal Breast Cancer ?No ?? Personal Ovarian Cancer ? No ?? Treatments ? None ?? Family Cancers ? Father with lung cancer at age 45. ? LOCATION: ? [facility] ? BREAST COMPOSITION: ? The breasts are almost entirely fatty. ? FINDINGS: ? RIGHT BREAST: ??No significant suspicious finding. ??Benign-appearing ?? calcifications are present. ??Benign appearing lymph nodes are present. ? LEFT BREAST: ??No significant suspicious finding. ??Benign-appearing lymph nodes ?? are present along with chest wall. ? DIAGNOSTIC CATEGORY 2--BENIGN FINDING. NO CHANGE FROM COMPARISON. ? RECOMMENDATIONS: ? ROUTINE MAMMOGRAM AND CLINICAL EVALUATION IN 12 MONTHS. ? Dictated by: Pa Villa MD on 02/27/2025 at 14:04 ? Approved by: Pa Villa MD on 02/27/2025 at 14:07 ? Dictated By: ?Pa Villa M.D. ? Signed By: ?02/27/25 1407 ? DD/ 1407 ? TD/TT: ? Cloth Opener Hand: Procedure Note Radiology, Radiologist, MD - 02/27/2025 [place] [address] Mammography Report Signed Patient: SHEY BOSS LMR#: [id number] : 1950cct:[id number] Age/Sex: 74 / FADM Date: 02/27/25 Loc: MAMMO Attending Dr: Latrell Jack M.D. Ordering Physician: Latrell Jack M.D.Results: Date of Service: 02/27/25Follow Up: Procedure(s): MM tomosynthesis screening BI Accession Number(s): [id number] cc: Latrell Jack M.D. Patient Name: SHEY BOSS MR#: [id number] : 1950 Exam Date: 02/27/2025 Ordering Doctor: DR LATRELL JACK . RADIOLOGY REPORT PROCEDURE: MM TOMOSYNTHESIS SCREENING BI COMPARISON: MM TOMOSYNTHESIS SCREENING BI, 11/28/2023. MG MAMM NCJZHB9Y RONALD CAD, 11/24/2022. MG MAMM SCREEN 3D RON[place]D CAD, 11/11/2021. MG MAMM TXKIRH5I RON[place]D CAD, 11/05/2020. INDICATIONS: Screenng Calculator Name NCI Breast Cancer Risk Assessment Tool 5 Year Breast Cancer Risk 2.00% Lifetime Breast Cancer Risk 4.80% Personal Breast Cancer No Personal Ovarian Cancer No Treatments None Family Cancers Father with lung cancer at age 45. LOCATION: [facility] BREAST COMPOSITION: The breasts are almost [...] M.D. Signed By:02/27/25 1407 DD/ 1407 TD/TT: Cloth Opener Hand: Authorizing ProviderResult TypeResult StatusMarc Naderer MDCLINISYNC IMAGING Final Result from Last [address] [place] [address] Care Teams Team MemberRelationshipSpecialtyStart DateEnd Date Latrell Jack MD [facility] - [facility] Latrell Jack MD [address] [place] [address] PCP - [facility]08/16/24 Siomara Fitzgerald DO [address] [place] [address] Referring UymyzhbkdRxjwxftfk58/21/24
--- OUTSIDE RECORDS SUMMARY | 2025-05-07 10:10 | XMS_ITS | Clinical Summary ---
Author Organization [facility] Address [facility] [place] [address] Care Team Providers Care Smash Hand Name Role Phone Katie Hairston MD Unavailable [phone] Latrell Mckeon MD Primary Care Provider [phone] Allergies No known active allergies Medications MedicationSigDispense QuantityRefillsLast FilledStart DateEnd DateStatus Vitamin E, dl, acetate, (VITAMIN E) 400 unit capsule Take 1 capsule by mouth.Active aspirin 81 mg cap Take 81 mg by mouth.03/05/2021ctive atorvastatin (LIPITOR) 40 mg tablet Take 40 mg by mouth.03/12/2021ctive calcium carbonate (CALTRATE) 600 mg calcium (1,500 mg) tab Take 1 tablet by mouth.Active Cholecalciferol, Vitamin D3, 25 mcg (1,000 unit) cap Take 1 capsule by mouth.Active donepezil (ARICEPT) 5 mg tablet Take 5 mg by mouth daily at bedtime.Active famotidine (PEPCID) 40 mg tablet Take 1 tablet by mouth.11/08/2020ctive fluticasone (FLONASE) 50 mcg/actuation nasal spray 2 Sprays once daily.09/06/2023ctive losartan (COZAAR) 50 mg tablet Take 50 mg by mouth.02/09/2024ctive pantoprazole DR (PROTONIX) 40 mg tablet Take 40 mg by mouth.03/03/2021ctive Zolpidem (AMBIEN CR) 12.5 mg CR tablet Take 12.5 mg by mouth.03/03/2021ctive tiotropium bromide (SPIRIVA RESPIMAT INHALATION) Inhale as instructed.Active ALBUTEROL INHALATION Inhale as instructed.Active acetaminophen (TYLENOL EXTRA STRENGTH) 500 mg tablet Take 2 tablets by mouth every 6 hours as needed for pain.07/26/2024tive docusate sodium (COLACE) 100 mg capsule Take 1 capsule by mouth two times a day as needed for constipation.07/26/2024 Active Active Problems ProblemNoted DateDiagnosed DateElectrolyte tajdfvvxbgi00/17/2025Obesity, Class II, BMI 35-39.9007/24/2024S/P repair of paraesophageal ihewuz775Acute postoperative pain07/24/2024HTN (hypertension)07/23/2024 Assessment & Plan (07/23/2024 1:44 PM EST): -Managed on losartan -BP today 152/73 -EKG reviewed, NSR Dhtekyo8107/23/2024 Assessment & Plan (07/23/2024 1:51 PM EST): -Body mass index is 37.45 kg/m??. Screening for malignant neoplasm of colon07/23/2024Transient ischemic attack 07/23/2024GERD (gastroesophageal reflux disease)07/23/2024 Assessment & Plan (07/23/2024 1:45 PM EST): -Managed on PPI, Pepcid Hiatal qwfxyq1207/23/2024Former yszmns8107/23/2024 Assessment & Plan (07/23/2024 1:52 PM EST): -Smoked from age [age] (quit in 2011), 1/2-2 PPD Abnormal MRI of head07/23/2024 Assessment & Plan (07/23/2024 1:47 PM EST): -03/15/24 MRI brain Mild chronic microvascular ischemic and involutional changes. -Managed on aspirin, please note last dose was 07/22/24 PM Memory loss07/23/2024 Assessment & Plan (07/23/2024 1:49 PM EST): -Follows OP with PCP -Managed on donepezil Chronic back pain07/23/2024 Assessment & Plan (07/23/2024 1:49 PM EST): -Follows OP with pain management Paraesophageal vpxaxo2404/29/20242181Cbipyd39/25/8381Igkydcwtj13/16/2024Senile wqcwsykf38/02/3623Yqtmufpcqtm23/04/2024OPD (chronic obstructive pulmonary disease)08/11/20237711Gvgtvjananyu78/02/2024 Assessment & Plan (07/23/2024 1:45 PM EST): -Continue statin Encounter for long-term (current) use of wxeaaovxteo89/02/2024Lower extremity edema08/11/2023OSA (obstructive sleep apnea)08/11/2023 Assessment & Plan (07/23/2024 1:43 PM EST): -Compliant with CPAP Osteopenia of lumbar spine08/11/2023rimary znolmrwz61/02/2024 Assessment & Plan (07/23/2024 1:50 PM EST): -Managed on Ambien Primary osteoarthritis of both knees08/11/2023Seasonal allergic rhinitis due to dsdkuj2608/11/2023TIA (transient ischemic attack)08/11/2023 Assessment & Plan (07/23/2024 1:45 PM EST): -Noted in EMR however patient denies Hiatal hernia with gastroesophageal reflux disease without xehxentorph05/02/2024 Psychophysiologic lhxyryxl38/17/2022ersonal history of urinary (tract) cmgxzjxyky62/17/2022ough, eosjwjaueus76/16/2022hronic obstructive pulmonary rtjlqpc2611/04/2021 Assessment & Plan (07/23/2024 1:43 PM EST): -Continue inhalers, has not needed to use albuterol in the past 3-4 months -SpO2 99% on RA -Follows OP with PCP -Patient in NAD -Admits to chronic exertional dyspnea, not new or worsening -Former heavy smoker -CXR pending Contact with and (suspected) exposure to covid-19011/04/2021hortness of breath 11/04/2021yspnea, nkucxtbfhfc49/26/2022Lumbar kvsqltsmlwsda45/10/2022bdominal cpzwam4309/16/2021ther specified disorders of bone density and structure, other site09/16/2021symptomatic menopausal state09/16/2021ain in right ankle and joints of right foot09/16/2021 Resolved Problems ProblemNoted DateDiagnosed DateResolved DateBMI 39.0-39.9,adult07/23/2024 07/23/2024lass 2 severe obesity due to excess calories with serious comorbidity and body mass index (BMI) of38.0 to 38.9 in adultEssential hypertension, jcxwlf35Morbid obesity due to excess calories HypertensionMorbid (severe) obesity due to excess zpeahnpm61 Encounters DateTypeDepartmentCare DwrwDrkawlanmku99/15/2025 11:00 AM EDTOffice Visit General Surgery [address] [place] [address] Katarzyna Grover, LISSETTE.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 Paraesophageal hernia (Primary Dx)04/22/2025Travelfrom Last 3 Months Family History Medical HistoryRelationCommentsAnesthesia ProblemsNo Family History Social History Tobacco UseTypesPacks/DayYears UsedDateSmoking Tobacco: CtjmhuGndztdgfeb7199 - 1967Smokeless Tobacco: Never Tobacco Cessation:Counseling Given: Not Answered Comments:Age 17 - 61, 1/2 - 2 PPD, quit while at 2 PPD Alcohol UseStandard Drinks/WeekCommentsNot Currently0 (1 standard drink = 0.6 oz pure alcohol)Area Deprivation IndexAnswerDate RecordedNational Score (1-100), lower number is lower wncx9112State Score (1-10), lower number is lower gudk388ata from: https://www.neighborhoodatlas.medicine.[facility].edu/. Last address used for [address] [facility]4CommentsNoSex and Gender InformationValueDate RecordedSex Assigned at BirthNot on fileLegal Sex Bklvgj5604/02/2024 3:17 PM EDTGender XdlbhguyTbmktw03/15/2024 1:21 PM EDTSexual OrientationNot on file Last Filed Vital Signs Vital SignReadingTime TakenCommentsBlood Mjbilxyy653/7904/23/2025 11:12 AM EDT Caore421804/23/2025 11:12 AM PCKRssrugxhytu94.1 ??C (97 ??F)04/23/2025 11:12 AM EDTRespiratory Moot163507/26/2024 9:55 AM ESTOxygen Joeisxlvpg93%07/26/2024 9:55 AM ESTInhaled Oxygen Concentration--Qcdxvi527.4 kg (228 lb)04/23/2025 11:12 AM DOQCbmtep879.1 cm (5' 5 )04/23/2025 11:12 AM EDTBody Mass Index37.9404/23/2025 11:12 AM EDT Plan of Treatment Health MaintenanceDue DateLast DoneCommentsAnnual PCP Team Chronic Disease Visit 09/21/1969Hepatitis C Pyaojpkbx52/15/1970DTaP,Tdap,Td Vaccine (1 - Tdap) 09/21/1970CT Wlvhipjuixif92/15/1997Cologuard (FIT-DNA)09/21/1996Colonoscopy 09/21/1996Colorectal Cancer Ezvdubpvy25/15/1997Fecal Occult Blood09/21/1996Lipid Wrhayxods47/15/8838Mvojdsghqeyhk94/15/1997Shingrix Vaccine (1 of 2)09/21/2001 Medicare Annual Wellness Visit09/07/2016Bone Density Mpnqkuegd95/15/2017Advance Directive Ekdozmusdm59/01/2025Covid-19 Vaccine ( season)2025 03/27/2023, 05/03/2022, 04/12/2021, Additional history existsInfluenza Vaccine (#1)511/12/2023, 05/03/2022, 04/12/2021, Additional history exists Mammogram Kjgxieagj29/21/591143Diabetes Ayyelitzj95, 07/24/2024, 07/23/2024Pneumococcal Vaccine: 50+Ndppqdtqj71/19/2022, 05/16/2019, 01/31/2018RSV AllpfezQlpkfbecd69/18/2023 Medical Devices ImplantedTypeAreaManufacturerDevice IdentifierShelf Expiration DateModel / Serial / LotFelt Thk1.65mm Ptfe 4x.5in Cardiovascular Sterile - [id number] [facility]plant[facility]/A: AbdomenBARD PERIPHERAL [id number] / / [id number] Procedures Procedure NamePriorityDate/TimeAssociated DiagnosisCommentsCT OUTSIDE CD DICOM EEXVJD8103/04/2025 BASIC METABOLIC INAHBMfjqjgh90/17/2025 1:13 AM EST from Last 3 Months or Most Recently Relevant to Health Maintenance Results * CT-CT LUNG SCREENING LOW-DOSE IMPORT (03/04/2025)Anatomical RegionLaterality ModalityOtherSpecimen (Source)Anatomical Location / LateralityCollection Method / VolumeCollection TimeReceived Time03/04/2025 Narrative 04/23/2025 5:33 PM EDT Images were obtained outside of [facility] Procedure Note Provider, [facility] [place] - 04/23/2025 Images were obtained outside of [facility] Authorizing ProviderResult TypeResult StatusCcf ProviderRADIOLOGYFinal Result * (ABNORMAL) BASIC METABOLIC PANEL (07/26/2024 1:13 AM EST)ComponentValueRef RangeTest MethodAnalysis TimePerformed AtPathologist ZvixqtmkaFftweck236(H)74 - 99 mg/dL07/26/2024 2:33 AM ESTOHIOHEALTH GRADY MEM[facility] LABComment: The Canadian Diabetes Association (ADA) provides guidance for cutoff values for fasting glucose andrandom glucose. The ADA defines fasting as no [...] Standards of Medical Care in Diabetes 2016, Canadian Diabetes Association. Diabetes Care. 2016.39(Suppl 1). ORV471 - 21 mg/dL07/26/2024 2:33 AM [facility] Creatinine0.920.58 - 0.96 mg/dL07/26/2024 2:33 AM [facility] VGMSvrwve659598 - 144 mmol/L07/26/2024 2:33 AM [facility] LABPotassium3.4(L)3.7 - 5.1 mmol/L07/26/2024 2:33 AM [facility] GKZRkmhtzdh66315 - 107 mmol/L07/26/2024 2:33 AM [facility] TROQD11875 - 30 mmol/L07/26/2024 2:33 AM [facility] LABAnion Hdi211 - 15 mmol/L07/26/2024 2:33 AM [facility] LABCalcium, Total9.08.5 - 10.2 mg/dL07/26/2024 2:33 AM [facility] LABEstimated Glomerular Filtration Rate66>=60 mL/min/1.73m 07/26/2024 2:33 AM [facility] LABComment:Estimated Glomerular Filtration Rate (eGFR) is calculated using the 2020 CKD-EPI creatinine equation. This equation utilizes serum creatinine, sex, and age as parameters. The creatinine assay has traceable calibration to isotope dilution- mass spectrometry. Refer to KDIGO guidelines for clinical interpretation. In patients with unstable renal function, e.g. those with acute kidney injury, the eGFRmay not accurately reflect actual GFR.Specimen (Source)Anatomical Location / LateralityCollection Method / VolumeCollection TimeReceived TimeBloodBLOOD SPECIMEN / UnknownVenipuncture / Gbynyth3707/26/2024 1:13 AM EST07/26/2024 1:22 AM EST Narrative Authorizing ProviderResult TypeResult StatusLuciano TastaldiLABORATORYFinal ResultPerforming OrganizationAddressCity/State/ZIP CodePhone Number [facility] [address] [facility] [address] [place] [address], [place] from Last 3 Months or Most Recently Relevant to Health Maintenance Insurance Care Teams Team MemberRelationshipSpecialtyStart DateEnd Date Latrell Mckeon MD [address] [place] [address] PCP - GeneralFami Rthobhbp01/23/24 Katie Hairston MD [address] [place] [id number] Internal Medicine04/02/24
--- OUTSIDE RECORDS SUMMARY | 2025-05-07 10:10 | XMS_ITS | Clinical Summary ---
Author Organization [facility] [facility] Address [id number] [address] 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 Name Role Phone Latrell Mckeon MD Primary Care Provider Allergies No known active allergies Medications MedicationSigDispense QuantityRefillsLast FilledStart DateEnd DateStatus zolpidem (AMBIEN) 10 mg tablet Take 10 mg by mouth daily.10/13/2020ctive famotidine (PEPCID) 40 mg tablet Take 40 mg by mouth 2 (two) times a day.11/08/2020ctive pantoprazole (PROTONIX) 40 mg EC tablet Take 40 mg by mouth daily.Active aevxqstk-cyvv-YJ-calcium &mins (THERAGRAN-M) 9 mg iron-400 mcg tablet Take 1 tablet by mouth daily.Active vitamin E 200 units capsule Take 200 Units by mouth daily.Active prasterone, dhea, (DHEA) 25 mg capsule Take 50 mg by mouth daily.Active cholecalciferol (VITAMIN D3) 1,000 units tablet Take 1,000 Units by mouth daily.Active cetirizine (ZyrTEC) 10 mg tablet Take 10 mg by mouth daily. Allergy reliefActive safflower oil/linoleic acid,co (CLA ORAL) Take by mouth daily.Active losartan (COZAAR) 25 mg tablet Take 25 mg by mouth daily.03/24/2021ctive atorvastatin (LIPITOR) 40 mg tablet Take 40 mg by mouth daily.03/12/2021ctive baclofen (LIORESAL) 10 mg tablet Take 10 mg by mouth daily.02/17/2021ctive Family History Medical HistoryRelationNameCommentsCOPDFatherCancerFatherAlzheimer's disease MotherHeart diseaseMotherRelationNameStatusCommentsFatherDeceasedMotherDeceased Social History Tobacco UseTypesPacks/DayYears UsedDateSmoking Tobacco: FormerCigarettesQuit: 2012Smokeless Tobacco: NeverAlcohol UseStandard Drinks/WeekCommentsYes0 (1 standard drink = 0.6 oz pure alcohol)socialCommentsNoSex and Gender InformationValueDate RecordedSex Assigned at BirthNot on fileLegal SexFemale 10/21/2020 10:40 AM EDTGender IdentityNot on fileSexual OrientationNot on file Last Filed Vital Signs Vital SignReadingTime TakenCommentsBlood Jvblmmvp243/9806 12:37 PM EDT Skyrt333612/09/2020 12:37 PM NBNXmtjwrjidtk74.3 ??C (97.3 ??F)12/09/2020 11:07 AM EDTRespiratory Dgiz918312/09/2020 12:37 PM EDTOxygen Llxmeciwix36%12/09/2020 12:37 PM EDTInhaled Oxygen Concentration--Folctw467.9 kg (229 lb)12/09/2020 8:19 AM XSQQgvtza763 cm (5' 3 )12/09/2020 8:19 AM EDTBody Mass Index40.57012/09/2020 8:19 AM EDT Plan of Treatment Health MaintenanceDue DateLast DoneCommentsDepression Jcqjwotwu36/15/1964Tobacco Fjjygdhzb72/15/1964Adult BMI Edfekyiqs04/15/1970DTaP,Tdap and Td Vaccines (1 - Tdap)09/21/1970Zoster (Shingles) Vaccine (1 of 2)09/21/2001Fall Risk Screening 09/21/2016COVID-19 Vaccine ( season)/10/2020, 09/14/2020, 08/27/2020Influenza Zqfovnh69/10/2020, 06/16/2020, 05/16/2019, Additional history exists Medical Devices Not on file Insurance * Guarantor: Shey MckoyAccount TypeRelation to PatientDate of PhoneBilling AddressPersonal/TmhbpsJdmg87[address] [place] [address] Care Teams Team MemberRelationshipSpecialtyStart DateEnd Date Latrell Mckeon MD PCP - Generalmily Medicine11/09/20
--- OUTSIDE RECORDS SUMMARY | 2025-05-07 10:10 | XMS_ITS | Patient Health Record ---
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 Name Role Phone Latrell Mckeon MD Primary Care Provider Unavailab le Reason For Referral No Information Medications Medication SIG (Take, Route, Frequency, Duration) Notes Start Date End Date Status Baclofen 10 MG 1 tablet as needed Orally Twice a day ActiveAspirin 325 MG1 tablet Orally Once a dayActiveZolpidem Tartrate 10 MG1 tablet at bedtime as needed Orally Once a dayActivePantoprazole Sodium 40 MG1 tablet Orally Once a dayActiveCLA 1000 MGas directed OrallyActiveFamotidine 40 MG1 tablet Orally Once a dayActiveDHEA 50 50 MGas directed OrallyActive Atorvastatin Calcium 40 MG1 tablet Orally Once a dayActivePregabalin 75 MG1 capsule Orally twice daily; Duration: 30 days4ActiveMulti Vitamin -1 tablet Orally Once a dayActiveCalcium 600 MG1 tablet with meals Orally Twice a dayActiveAmbien CR 12.5 MG1 tablet at bedtime as needed Orally Once a dayActive Vitamin E 100 UNITas directed OrallyActiveVitamin D 25 MCG (1000 UT)1 tablet Orally Once a dayActiveSpiriva HandiHaler 18 MCG1 capsule by inhaling the contents of the capsule using the HandiHaler device Inhalation Once a dayActive Problems Problem Type SNOMED Code ICD Code Onset Dates Problem Status W/U Status Risk Notes Problem Mononeuropathy of lo wer limb (992141408) 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.91) ActiveconfirmedProblemLumbar radiculopathy (514582261)Radiculopathy, lumbar region (M54.16)ActiveconfirmedProblemPain in right foot (425205674299406)Right foot pain (M79.671)Activeconfirmed Plan Of Treatment Pending Test Test Name Order Date XR foot RT min 3V 04/10/2024 Insurance Providers Payer Name Payer Address Payer Phone Subscriber Number Group Number Insured Name Patient Relationship to Insured Coverage Start Date Coverage End Date MEDICARE RAILROAD [address] [address] [place], [place] [id number] Ariadne Obrien - patient is the insuredMULTICARE [facility] [address] [address] [place], [place] [id number], SharonSelf - patient is the insured Medical (General) History Surgical History Surgery Date(Month/Year) right ankle sx right ankle [id number]
--- NOTE | 2025-05-07 10:39 | PM.CN ---
Consult Note: HPI Data of Consult Patient: known to practice within the last 3 years Requesting Physician: Amalia Woodson NP Primary Care Provider: Latrell Mckeon MD Consult Narrative Reason for consult: low back and RLE pain Narrative: Shey Obrien a pleasant 74 year old female presents for evaluation and management of chronic low back pain secondary to lumbar ddd, lumbar stenosis, lumbar facet arthropathy unresponsive to > 6 weeks of PT/HEP, heat, ice, tylenol, NSAIDs. Pt utilizing tylenol, zonegran, robaxin without side effects and finds mildly beneficial. Pain today 3/10 increasing to 10/10 with standing, walking, pushing, pulling, lifting, bending, stairs, and activity. notes improvement with sitting, lying, and heat. denies fall/injury. recently underwent right L4-5 L5-S1 TFESI with mild ongoing relief. noting moderate to severe pain after 5 minutes of walking, requiring her to sit for a few minutes and pain substantially improves. noting 80% pain in low back and 20% in RLE. cc:: CC: Amalia Woodson NP Review of Systems ROS Musculoskeletal Reports: back pain, extremity pain and joint pain PFSH PFSH Medical History Osteoarthritis ?M19.90 - Unspecified osteoarthritis, unspecified site (ICD-10) Anxiety ?F41.9 - Anxiety disorder, unspecified (ICD-10) Hiatal hernia ?K44.9 - Diaphragmatic hernia without obstruction or gangrene (ICD-10) Sleep apnea ?G47.30 - Sleep apnea, unspecified (ICD-10) COPD (chronic obstructive pulmonary disease) ?J44.9 - Chronic obstructive pulmonary disease, unspecified (ICD-10) High cholesterol ?E78.00 - Pure hypercholesterolemia, unspecified (ICD-10) HTN (hypertension) ?I10 - Essential (primary) hypertension (ICD-10) Surgical History History of ankle surgery ?Z98.890 - Other specified postprocedural states (ICD-10) History of hand surgery ?Z98.890 - Other specified postprocedural states (ICD-10) History of knee replacement ?Z96.659 - Presence of unspecified artificial knee joint (ICD-10) Social History Little interest or pleasure in doing things: not at all Feeling down, depressed, or hopeless: not at all Meds Home Medications and Allergies Home Medications ?Medication ?Instructions ?Recorded ?Confirmed ?Type aspirin 81 mg tablet,delayed 81 mg PO DAILY 04/16/24 04/28/25 History release (Adult Aspirin Regimen) atorvastatin 40 mg tablet 40 mg PO DAILY 04/16/24 04/28/25 History calcium carbonate (Calcium 500) 500 mg PO BID 04/16/24 04/28/25 History donepezil 5 mg tablet (Aricept) 5 mg PO DAILY 04/16/24 04/28/25 History famotidine 40 mg tablet 40 mg PO DAILY 04/16/24 04/28/25 History fluticasone propionate 50 2 spray intranasal DAILY PRN 04/16/24 04/28/25 History mcg/actuation nasal allergy symptoms spray,suspension (24 Hour Allergy Relief) losartan 50 mg tablet 50 mg PO DAILY 04/16/24 04/28/25 History pantoprazole 40 mg tablet,delayed 40 mg PO DAILY 04/16/24 04/28/25 History release tiotropium bromide 18 mcg capsule 1 cap inhalation DAILY 04/16/24 04/28/25 History with inhalation device (Spiriva with HandiHaler) vitamin E 268 mg (400 unit) capsule 268 mg PO DAILY 04/16/24 04/28/25 History methocarbamol 500 mg tablet 500 mg PO Q8H PRN pain #20 tabs 12/01/24 04/28/25 Rx zonisamide 50 mg capsule 100 mg (2 x 50 mg) PO DAILY #60 12/12/24 04/28/25 Rx caps hydrocodone 5 mg-acetaminophen 325 1 tab PO Q6H PRN pain #5 tabs 03/28/25 04/28/25 Rx mg tablet Allergies Allergy/AdvReac Type Severity Reaction Status Date / Time No Known Drug Allergies Allergy Verified 04/28/25 08:33 Exam Constitutional Documenting provider has reviewed patient's vital signs: yes Common normals: no apparent distress, oriented x3, healthy appearing, alert and well nourished General appearance: cooperative HENMT Common normals: normocephalic, hearing grossly normal bilaterally and moist oral mucous membranes Head and scalp: normocephalic Eye Common normals: PERRL Pupil: PERRL Neck & C-Spine Common normals: full ROM General: normal visual inspection Chest Common normals: inspection of chest normal Respiratory Common normals: normal respiratory effort, no retractions and no use of accessory muscles Back & Pelvis Lumbar spine/lower back: ROM limited, pain with ROM, lumbar spinal tenderness and straight leg raise negative bilaterally Sacroiliac joints: SI joint(s) abnormal Other: bilateral sij mildly positive mauro(patricks), gaenslens, thigh thrust, compression test strength 5/5 in BLE sensation intact BLE increased low back and RLE pain with standing/walking, improves with forward flexion and sitting Extremity Common normals: normal to inspection and full ROM Neuro Common normals: oriented x3 Sensorium/orientation: alert Psych Common normals: mental status grossly normal, thought process normal, cooperative, affect normal, speech normal and activity/motor behavior normal Speech: normal speech Thought process: normal thought process Results Additional Findings Additional findings: If on a controlled substance or opioids, I have checked an [place]AR[place] report on this patient and there are no aberrancies noted in the prescribing history.??If on a controlled substance or opioid a drug screen was completed and reviewed within the last year, and if there has not been a drug screen completed we ordered one today to monitor higher risk, state monitored pain medication use. As part of providing excellent, safe, comprehensive care, the following was completed at our patient's visit: 1. A medication reconciliation and review to ensure accurate knowledge of current/active medications, including asking our patients to inform us about any exqx-pnp-nwyaoyu medications or herbal remedies/nutritional supplements/alternative remedies. 2. A review to specifically ensure our patients have had annual screening for screening for depression, screening for tobacco use, and screening for unhealthy alcohol use. For concerning screenings had a discussion with the patient, provided patient education, and recommended follow-up with primary care provider when appropriate. If patient noted with a risk of falling, they received education on strength, gait, and balance training to prevent future risk of falling. Portions of this note may have been carried over from the previous visit and updated as appropriate. Please note this office utilizes paper charting in addition to the electronic medical record. A list of current medications, vitals, and PMH is available there as the clinical staff outside of myself do not have access to [employer] charting during the clinic day operations. As part of providing quality comprehensive care the current medications, vitals, and PMH were reviewed in the paper chart. Assessment and Plan Assessment and Plan (1) Lumbar stenosis with neurogenic claudication: Assessment and Plan: 04/28/25 right L4-5 L5-S1 TFESI less than 50% improvement (2) Sacroiliitis: (3) Lumbar spondylosis: Assessment and Plan: 06-24-24 bilateral L4-5 L5-S1 facet RFA less than 50% improvement Plan The patient has had over 3 months of moderate to severe low back and RLE pain with functional impairment and inadequate response to conservative care including NSAIDS (unless there are contraindication such as concurrent blood thinners), multiple oral or topical pain medications, and home exercise program/physical therapy.? Patient has completed >6 weeks of guided home exercise program and/or formal physical therapy program without relief of their symptoms.? The Oswestry Disability Index was completed, and the patient scored a 20%.?previously 31% prior to SUELLEN update lumbar MRI without contrast refer to NS for evaluation as patient has failed conservative therapies and above listed procedures continue current medications continue HEP as tolerated f/u after NS consultation
== END 2025-05-07 10:07 | disposition home or self-care (01) ==
LOC: PM 10:06
PROVIDERS: PCP Family Medicine; Visit Provider Nurse Practitioner
DX: M48.062 Spinal stenosis, lumbar region with neurogenic claudication (principal); M46.1 Sacroiliitis, not elsewhere classified; M47.816 Spondylosis without myelopathy or radiculopathy, lumbar region
CPT/HCPCS: G0463

== ENCOUNTER 2025-05-19 09:46 | Outpatient (OUT) | payer MEDICARE, OTHER, SELFPAY ==
--- OUTSIDE RECORDS SUMMARY | 2025-05-08 08:13 | XMS_ITS | Continuity of Care Document ---
Author Organization [facility] Address [address] [place] [address] Phone Care Team Providers Care Bill Board Poster Name Role Phone Latrell Jack MD Primary Care Provider [phone] Latrell Jack MD Attending Provider Erik Kim MD Attending Provider Elmer Suh DO Attending Provider Sandra Arcos APRN Attending Provider Care Teams Patient Care Team [...] April 24, 2025 End: April 24, 2025 Visit Care Team Team Status: Inactive Member Role/Relationship Status Dates Latrell Jack MD Primary Care Provider Active S tart: April 29, 2025 End: April 29, 2025Marc Luis M Jack ProviderActiveStart: April 29, 2025 End: April 29, 2025 Patient Care Team Team Status: Inactive Member Role/Relationship Status Dates Latrell Jack MD Primary Care Provider Active S tart: May 08, 2025 End: May 08Claire Tay ProviderActiveStart: May 08, 2025 End: May 08, 2025 Chief Complaint and Reason for Visit Chief Complaint Admit Date Hospital FollowUp [place] April 10, 2025 11:27am BH April 23, 2025 3 :04pm TB CONSULT DR JACK LT SHOULDER PAIN WX [facility] April 24, 2025 10:39am Established Patient April 29, 2025 1 :07pm Follow up 3 month May 08, 2025 1 2:27pm Reason for Visit Admit Date Dysfunction of left eustachian tube Octo 2024 11:27am Essential hypertension, benign April 102024 11:27am Primary osteoarthritis, left shoulder Oc tob2024 11:27am Tinnitus April 10, 2025 11 :27am Impingement of left shoulder April 10:39am Class 2 severe obesity due t o excess calories with serious comorbidity in adult April 29, 2025 1:07pm COPD (chronic obstructive pulmonary dise ase) April 29, 2025 1:07pm Essential hypertension, benign April 102024 1:07pm GERD without esophagitis April 29 1:07pm EDWIN (obstructive sleep apnea) April 292024 1:07pm Primary insomnia April 29, 2025 1 :07pm Primary osteoarthritis of both knees Oct eleni2024 1:07pm Anxiety May 08, 2025 1 2:27pm Major depressive disorder, recurrent, mo derate May 08, 2025 12:27pm Memory loss May 08, 2025 1 2:27pm Primary insomnia May 08, 2025 1 2:27pm 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, 2025 1 2:27pm Obstructive sleep apnea syndrome May 08, 2025 12:27pm Reason for Referral Type Reason(s) Provider Provider Contact Information P rovider Address Start Date Dysfunction of left eustachian tube TinnitusPrimary osteoarthritis of left shoulder M19.012 - Primary osteoarthritis, left fcdntmlsX22.92 - Unspecified Eustachian tube disorder, left ear,H93.12 - Tinnitus, left earHILARY H TIMMIS , MDSEE ORDER- MULTIPLE OFFICES [place]Octpsychiatric 2024M19.012 - Primary osteoarthritis, left shoulderDetermined by PatientOctober 2024 Allergies, Adverse Reactions, Alerts Allergen Type Severity Reaction Last Updated Verified Status No Known Allergies Allergy Unknown May 08, 2025 12:49pmYesActive Social History Smoking Status Status Start Date End Date Date of Observa tion Ex-smoker (finding) April 10, 2025 11:50am Observation Status Observation Response Date of Response Legal Sex Female (finding) [facility] 1950 Problems Active Problems Problem Diagnosis/Recorded Date Onset Date Stat Class 2 severe obesity due t o excess calories with serious comorbidity in adult April 29, 2025 1:45pm Unknown Active Medicare annual wellness vis it, [...] in adult April 09, 2025 1:17pm Unknown Resolved Sleep apnea December 12, 2024 7:05pm Unknown Resolv ed Dysphagia April 09, 2025 1:18pm Unknown Res olved Medications Medication Status Dose Units Route Directions Qty Days Refills S tart Date Stop Date End Date Reason(s) Instructions Adherence Donepezil 10 mg tablet Active 10 MG PO Bedtime 30 30 2 April 23, 2025 9:36am Complies with drug therapyAtorvastatin 40 mg laqbcfGznyex82IHBMGrywdJoqv 2024 12:00amComplies with drug therapyDonepezil 10 mg usrldzGbiggjedidrl03QXCD BedtimeJun2024 12:00amOctober 2024 9:36amLosartan 50 mg tablet Yuzvmlqghktn25UFOSHfhjv dailyJune 2024 12:00amJuly 2024 3:55pm Zolpidem 10 mg nrhlkmMnpdthoaaodt08MVJBLrdlvxk as needed for sleepJune 2024 12:00amOctober 2024 11:48amZonisamide 50 mg jqvwpyzLsyffjsksbiz19IAHGYrokt dailyJun2024 12:00amOctober 2024 1:42pmFluticasone Propionate 50 mcg/actuation spray,sspsfsgdymEenxpr9KGKPDEOUZSWXTSAZvhyeTkha 2024 12:00am Complies with drug therapyMethocarbamol 750 mg bdawyvNqwuzjiiyndy323CYMOPnwl times daily as needed for painJune 2024 12:00amJuly 2024 3:55pm Tiotropium [place] (Spiriva With Handihaler) 18 mcg capsule, w/inhalation device Udavhb2AYHPUIVGCMGWZSjvydDleg 2024 12:00amComplies with drug therapy Mirtazapine 7.5 mg TabletDiscontinued7.5MGPODaily at gyppokv97840Hmhg 2024 12:00amJuly 2024 3:55pmZonisamide 50 mg kkmszxuYxghnr093FIRZDwqocEmlzxzz 2024 1:36pmComplies with drug therapyLosartan 50 mg qvokwmLbntjtiydjqw92AO POTwice dailyJuly 2024 12:00amOctober 2024 1:27pmMethocarbamol 500 mg govjkjKhygutumtraz567HKNZsk neededJuly 2024 12:00amOctober 2024 1:31pmFamotidine 40 mg psywguIyfimxxxmhut56MEUUByvksZrve 2024 12:00am April 09, 2025 1:42pmPantoprazole 40 mg tablet,delayed release (DR/EC) Vqgbzmavfmgy47QMARZbtzmLpbr 2024 12:00amOctober 2024 1:22pmAspirin 81 mg ibtbqyUjdhth98GDEHGymwrIlgj 2024 12:00amComplies with drug therapy Mirtazapine 15 mg qkoatpDqmbul27DQLRMqdoi at bedtimeJuly 2024 12:00am Complies with drug therapyEszopiclone (Lunesta) 2 mg jneqdlQdcvdr2BXGVZahrb at kluxcfw00307Ogaz 2024 12:00amPrimary insomnia Primary insomniaComplies with drug therapyFamotidine 40 mg ivfkneIujwnj57YTAF Twice dailyOctober 2024 1:27pmComplies with drug therapyLosartan 100 mg ykxwzkUttcwf863LZTNEwlidIuldobx 2024 12:00amComplies with drug therapy Methocarbamol 750 mg nxzbakVeuejw114LJMRIyos times daily as needed for muscle spasmsOctober 2024 12:00amComplies with drug therapyAlbuterol Sulfate 2.5 mg /3 mL (0.083 %) solution for nebulizationActive2.5MGINHALATIONEvery 4 hours as neededOctpsychiatric 2024 12:00amComplies with drug therapyCalcium Carbonate (Calcium 600) 600 mg calcium (1,500 mg) satveuGduemj744LUESIiajm dailyOctpsychiatric 2024 12:00amComplies with drug therapyDocusate Sodium 100 mg capsule Mktahmetylnc578QACFZzmoi daily as neededOctpsychiatric 2024 12:00amOctpsychiatric 2024 11:47amMultivitamin,Tx-Minerals (Multi-Vitamin Hp/Minerals) capsuleActive1 CAPPODailyOctpsychiatric 2024 12:00amComplies with drug therapyCholecalciferol (Vitamin D3) 25 mcg (1,000 unit) njitxaBdxoft02EAANWJddquYpeydgj 2024 12:00amComplies with drug therapyVitamin E Mixed 400 unit bcomziFovpso504RIWSHU DailyOctpsychiatric 2024 12:00amComplies with drug therapyAmlodipine (Norvasc) 5 mg qquxdyJkmqil0DAOMIfmjj154Rzrubvu 2024 12:00amComplies with drug therapy Tirzepatide (Weight Loss) (Zepbound) 2.5 mg/0.5 mL pen injectorActive2.5MGSUBCUT every oalj00Ienxzss2024 12:00amfor 4 weeksComplies with drug therapy Vital Signs Vital Reading Result Reference Range Collection Date/Time Height 64 [in_i] April 10, 2025 11:56eqWintox993.32 [facility] 20[facility] 11:46amBody Icldrplovcr10.1 [degF]97.6-99.0[facility] 2024 11:46amHeart Hstv495 /qhz23-839 April 10, 2025 11:46amRespiratory rate24 /ssg65-51Tzdqlfv 2024 11:46am Oxygen saturation by Pulse zmpbcbuj32 %95-100[facility]2024 11:46amBP Wzikizgd240 mm[Hg]100-140Octpsychiatric 2024 11:46amBP Tpgjmxoxb06 mm[Hg]60-100 April 10, 2025 11:46amBMI (Body Mass Index)39.4 kg/t1Cbcmegp 2024 11:99snZxphtb60 [in_i]April 24, 2025 11:08bpOtrugx139.00 kgOctpsychiatric 2024 11:06amBMI (Body Mass Index)39.3 kg/f1Hedtsgq 2024 11:58jfDikrbu75 [in_i]April 29, 2025 1:54asWlabyl824.96 kgOctober 2024 1:20pmBody Pdenhfsmgbt88.1 [degF]97.6-99.0October 2024 1:20pmHeart Rate96 /kgt23-230 April 29, 2025 1:20pmRespiratory rate20 /yyb88-41Wtuohqg 21st, 2025 1:20pm Oxygen saturation by Pulse uxqnvlji09 %95-100Oct2024 1:20pmBP Mthmpuhg136 mm[Hg]100-140Oct2024 1:20pmBP Ddmognuoe29 mm[Hg]60-100 April 29, 2025 1:20pmBMI (Body Mass Index)38.9 kg/o6Kirkcmq 2024 1:70lrMftvkw94 [in_i]May 08, 2025 12:86xvWcuyhu617.96 kgOctpsychiatric 2024 12:46pmHeart Rate65 /dcg56-126Ofhvdpk 2024 12:46pmBP Jlpaovbq640 mm[Hg] 100-140Oct2024 12:46pmBP Pptdwvlth66 mm[Hg]60-100Octpsychiatric 2024 12:46pmBMI (Body Mass Index)38.9 kg/g6Vmvfreh 2024 12:46pm Advance Directives Advance Directive Response Recorded Date/ Time Advance Directives No December 17 2:30pm Insurance Providers Guarantor Shey Obrien Address [address] [address]Contact Info.Home Phone: Coverage Status Update:2025 Payer Group Member ID Coverage Type Subscriber Relationship to Subscriber Effective Date Expiration Date Medicare [id number] Obrien Id: [id number] [address] [address] Home Phone: [facility] [id number] Obrien Id: [id number] [address] [facility] [address] Home Phone: SelfRegular Lee Mchenry Id: [id number] [address] [facility] [address] Home Phone: Self Encounters Encounter Location(s) Arrival/Admit Date Discharge/Departure Date Discharge/Departure Disposition Provider(s) Departed Physician/ Provider Office Visit -[facility] April 10, 2025 11:27am April 10, 2025 12:14pm Discharged to home care or self care (routine discharge) Latrell Jack MD Registered [facility] April 23, 2025 3 :04pm [facility] 2024 10:39amOctober 2024 11:35am Discharged to home care or self care (routine discharge)Elmer Suh DO Departed Physician/Provider Office Visit-[facility] 2024 1:07pmOctober 2024 1:42pmDischarged to home care or self care (routine discharge)WING Cavanaugheparted Physician/Provider Office Visit-[facility] 2024 12:27pmOctober 2024 1:11pmDischarged to home care or self care (routine discharge)Hakeem Srinivasan APRN Recent Diagnosis Onset Date Admit Date Dysfunction of left eustachian tube Unknown April 10, 2025 11:27am Essential hypertension, benign Unknown O ctober 2024 11:27am Primary osteoarthritis, left shoulder Unknown April 10, 2025 11:27am Tinnitus Unknown April 10 11:27am Impingement of left shoulder Unknown Apr eleni 2024 10:39am Class 2 severe obesity due t o excess calories with serious comorbidity in adult Unknown April 29, 2025 1 :07pm COPD (chronic obstructive pulmonary disease) Unk nown April 29, 2025 1:07pm Essential hypertension, benign Unknown O ctober 2024 1:07pm GERD without esophagitis Unknown April 29, 2025 1:07pm EDWIN (obstructive sleep apnea) Unknown Oc tober 2024 1:07pm Primary insomnia Unknown April 29 025 1:07pm Primary osteoarthritis of both knees Unknown April 29, 2025 1:07pm Anxiety Unknown May 08 12:27pm Major depressive disorder, recurrent, moderate U nknown May 08, 2025 12:27pm Memory loss Unknown May 08 12:27pm Primary insomnia Unknown May 08, 025 12:27pm Pseudodementia Unknown May 08 12:27pm Obstructive sleep apnea syndrome Unknown May 08, 2025 12:27pm Assessments Diagnosis Onset Date Resolution Status Admit Date Dysfunction of left eustachian tube acuteOctober 2024 11:27amEssential hypertension, benignacuteOctober 2024 11:27amPrimary osteoarthritis, left shoulderacuteOctober 2024 11:27am TinnitusacuteOctober 2024 11:27amImpingement of left shoulderacuteOctober 2024 10:39amClass 2 severe obesity due to excess calories with serious comorbidity in adultacuteOctober 2024 1:07pmCOPD (chronic obstructive pulmonary disease)acuteOctober 2024 1:07pmEssential hypertension, benign acuteOctober 2024 1:07pmGERD without esophagitisacuteOctober 2024 1:07pmOSA (obstructive sleep apnea)acuteOctober 2024 1:07pmPrimary insomniaacuteOctober 2024 1:07pmPrimary osteoarthritis of both kneesacute April 29, 2025 1:07pmAnxietyacuteOctober 2024 12:27pmMajor depressive disorder, recurrent, moderateacuteOctober 2024 12:27pmMemory lossacute May 08, 2025 12:27pmPrimary insomniaacuteOctober 2024 12:27pm PseudodementiaacuteOctober 2024 12:27pmObstructive sleep apnea syndrome noneactiveOctober 2024 12:27pm Plan of Treatment Author Latrell Jack [facility] CenterAuthoredOctober 2024 12:20pmContinued pain and degenerative changes on x-ray. Refer to ortho for possible injection. Continued symptoms and no improvement with treatment. Continue flonase and refer to ENT. Continued symptoms and no improvement with treatment. Continue flonase and refer to ENT. BP controlled and monitor PRN. Author Lizzie Little [facility] CenterAuthoredOctober 2024 11:37amDiscussed with patient and company on [...] will follow-up in 8 weeks for reevaluation. Author Sandra Arcos [facility] CenterAuthoredOctober 2024 1:89yo14-ucxi-vfq female with a long history of obstructive sleep apnea. She is compliant with her CPAP machine. She is using it 97% of the time greater than 4 hours average nightly usage of 8 hours and 0 minutes and a residual AHI of 0.4. She however does not feel like her [...] was counseled on the risks of stroke, WA, and sudden with EDWIN, along with the need for compliance with the CPAP/BiPAP treatment. The diagnosis was all discussed with the patient.?? All questions were answered and they agreed with the treatment plan.?? Patient will call if there are any new issues or questions. Author Latrell Jack [facility] CenterAuthoredOctober 2024 1:48pmBP remains elevated and add norvasc. Continue to monitor PRN. Discussed DASH diet. Breathing stable and continue inhalers. Use albuterol PRN. Sleeping well with lunesta and continue. Pain stable and use OTC PRN. Symptoms controlled with pepcid and continue. Sleeping well with CPAP and continue. Problems losing weight and try zepbound. Future Tests Future scheduled test information is unavailable Pending Tests Pending diagnostic test information is unavailable Future Visits Future appointment information is unavailable Future Procedures Future procedure information is unavailable Future Medications Future medication information is unavailable Patient Instructions Patient instructions are unavailable
--- NOTE | 2025-05-19 09:50 | MR_ITS ---
The [address] [address] Patient Name: PARTH BOSS MRN: [id number] date: 1950 Sex: F Assigned Patient Location: MRI Current Patient Location: Accession/Order Number: [id number] Exam Date: 05/19/2025 10:05 Report Date: 05/20/2025 10:57 At the request of: WILL ROMERO NP Procedure: MR lumbar spine wo con MR lumbar spine wo con 05/19/2025 10:44 AM SIGNS AND SYMPTOMS: ^Lumbar Stenosis With Neuro Claudication PROTOCOL: Multiplanar multisequence MR images of the lumbar spine without IV contrast COMPARISON: None. FINDINGS: The bones of the lumbar spine are in anatomic alignment. There is preservation of vertebral body heights. There is moderate disc height loss at L1-L2 with mild disc height loss throughout otherwise. There is Schmorl's node formation in the endplates at L1-L2 at L2-3. The marrow signal is within normal limits. The conus terminates at the L1-L2 intervertebral disc level. No epidural or paraspinous fluid collection is appreciated.. There is redemonstration of a simple cyst in the left renal cortex requiring no further follow-up. At T12-L1: There is a normal disc, central canal, and neural foramen. At L1-L2: There is a broad-based disc bulge. There is facet hypertrophy. There is mild spinal canal narrowing with mild bilateral neural foraminal narrowing. This is unchanged. At L2-L3: There is a broad-based disc bulge with a central disc extrusion with mild caudal migration. This is worse when compared to the prior exam. This contributes to mild spinal canal narrowing with mild to moderate left and mild right neural foraminal narrowing. Spinal canal stenosis is slightly worse. At L3-L4: There is a broad-based disc bulge with facet hypertrophy and ligamentum flavum thickening. There is mild spinal canal narrowing with mild bilateral neural foraminal narrowing similar to the prior exam. This is unchanged. At L4-L5: There is a circumferential disc bulge with a focal right central disc protrusion. Facet hypertrophy with ligamentum flavum thickening. There is moderate spinal canal stenosis with mild bilateral neural foraminal narrowing. This is unchanged. At L5-S1: There is a broad-based disc bulge with facet hypertrophy and ligamentum flavum thickening. There is mild spinal canal narrowing with minimal neural foraminal stenosis bilaterally. This is unchanged. MR/MR lumbar spine wo con IMPRESSION: At L2-L3: There is a broad-based disc bulge with a central disc extrusion with mild caudal migration. This is worse when compared to the prior exam. This contributes to mild spinal canal narrowing with mild to moderate left and mild right neural foraminal narrowing. Spinal canal stenosis is slightly worse. At L4-L5: There is a circumferential disc bulge with a focal right central disc protrusion. Facet hypertrophy with ligamentum flavum thickening. There is moderate spinal canal stenosis with mild bilateral neural foraminal narrowing. This is unchanged. Additional lesser and unchanged spinal canal and neural foraminal narrowing is noted throughout, as above. Impression dictated by: Pa Villa M.D. 05/20/2025 10:57 AM Dictation Location: [place] [address] Electronically authenticated by: [id number] Y Date: 05/20/2025 10:57
--- OUTSIDE RECORDS SUMMARY | 2025-05-19 09:50 | XMS_ITS | Encounter Summary ---
Author Organization [facility] Address [address] [place] [address] Care Team Providers Care Chief Resource Officer Name Role Phone Latrell Mckeon MD Primary Care Provider [phone] Siomara Fitzgerald DO Unavailable [phone] Latrell Mckeon MD Unavailable Sugar Arenas REFINED SYRUP OPERATOR Unavailable [phone] Encounter Details DateTypeDepartmentCare Team (Latest Contact Info)Wfbalawyybn09/14/2025Clinisync Result Encounter [facility] External Department Unsolicited Provider, Generic External Data Social History Tobacco UseTypesPacks/DayYears UsedDateSmoking Tobacco: FormerCigarettes1.270.7 07/10/1967 - 01/08/2012Smokeless Tobacco: NeverAlcohol UseStandard Drinks/Week CommentsYes4 (1 standard drink = 0.6 oz pure alcohol)Caffeine: 2-3 cups per day B1300 Health LiteracyAnswerDate RecordedHow often do you need to have someone help you when you read instructions, pamphlets, or other written material from your doctor or pharmacy?Ywkvaotbr35/26/2024Social Connection and Isolation Panel AnswerDate RecordedIn a typical week, how many times do you talk on the phone with family, friends, or neighbors?More than three times a week02/02/2024How often do you get together with friends or relatives?Three times a week02/02/2024 How often do you attend islam or denominational services?Patient edfniaus86/26/2024 Do you belong to any clubs or organizations such as islam groups, unions, fraternal or athletic groups, or school groups?Patient aooroqed78/26/2024How often do you attend meetings of the clubs or organizations you belong to?Patient qhouvbma37/26/2024re you , , , , never , or living with a partner?Never kbxzmcy4702/02/2024UDIT-CAnswerDate RecordedQ1: How often do you have a drink containing alcohol?Monthly or less03/03/2024Q2: How many drinks containing alcohol do you have on a typical day when you are drinking?3 or Q3: How often do you have six or more drinks on one occasion?Less than wktuvuo6603/03/2024Overall Financial Resource Strain (CARDIA) AnswerDate RecordedHow hard is it for you to pay for the very basics like food, housing, medical care, and heating?Patient nhokncns72/26/2024HQ-2AnswerDate RecordedPatient Health Questionnaire-2 Zazcw174Finlifepoint hospitals [place] of Occupational Health - Occupational Stress QuestionnaireAnswerDate RecordedDo you feel stress - tense, restless, nervous, or anxious, or unable to sleep at night because yourmind is troubled all the time - these days?To some ywywpb5202/02/2024 Exercise Vital SignAnswerDate RecordedOn average, how many days per week do you engage in moderate to strenuous exercise (like a brisk walk)?Patient declined 02/02/2024On average, how many minutes do you engage in exercise at this level? Patient kyozbayu06/26/2024Hunger Vital SignAnswerDate RecordedWithin the past 12 months, you worried that your food would run out before you got the money to buy more.Patient dfixvhty91/26/2024Within the past 12 months, the food you bought just didn't last and you didn't have money to get more.Patient declined 02/02/2024RAPARE - TransportationAnswerDate RecordedIn the past 12 months, has lack of transportation kept you from medical appointments or from getting medications?No02/02/2024In the past 12 months, has lack of transportation kept you from meetings, work, or from getting things needed for daily living?No 02/02/2024Housing Stability Vital SignAnswerDate RecordedIn the last 12 months, was there a time when you were not able to pay the mortgage or rent on time?No 02/02/2024In the past 12 months, how many times have you moved where you were living?t any time in the past 12 months, were you homeless or living in a half-way (including now)?No02/02/2024CommentsUnknownSex and Gender InformationValueDate RecordedSex Assigned at BirthNot on fileLegal SexFemale 09/21/2022 7:08 PM EDTGender IdentityNot on fileSexual OrientationNot on file documented as of this encounter Functional Status * Over the past 2 weeks, how often have you been bothered by any of the following problems?QuestionAnswerDate of AssessmentAuthorLittle interest or pleasure in doing thingsNot at all08/27/2024 10:00 AM Jaz Miranda MA Feeling down, depressed, or hopelessNot at all08/27/2024 10:00 AM Jaz Miranda MAPatient Health Questionnaire-2 Lxdgu682 10:00 AM Jaz Miranda MA * QuestionAnswerDate of AssessmentAuthorTrouble falling or staying asleep, or sleeping too muchMore than half the days08/27/2024 10:00 AM Jaz Miranda MAFeeling tired or having little energyMore than half the days08/27/2024 10:00 AM Jaz Miranda MAPoor appetite or overeatingNot at all08/27/2024 10:00 AM Jaz Miranda MAFeeling bad about yourself - or that you are a failure or have let yourself or your family downNot at all08/27/2024 10:00 AM Jaz Valdez MATrouble concentrating on things, such as reading the newspaper or watching televisionNot at all08/27/2024 10:00 AM Jaz Miranda MAMoving or speaking so slowly that other people could have noticed? Or the opposite - being so fidgety or restless that you have been moving around a lot more than usual.Not at all08/27/2024 10:00 AM Jaz Miranda MAThoughts that you would be better off or hurting yourself in some way Not at all08/27/2024 10:00 AM Jaz Miranda MAPatient Health Questionnaire-9 Wnwcc059 10:00 AM Jaz Miranda MA documented as of this encounter Plan of Treatment DateTypeDepartmentCare Team (Latest Contact Info)Bpmyhranfta19/26/2025 3:30 PM ESTOffice Visit [facility] [address] [facility] [facility] [address] Sugar Cruz S, AUD [address] [place] [address] 06/09/2025 1:10 PM ESTOffice Visit [facility] [address] [facility] [address] [place] [address] Layla Houston MD [address] [facility] [address] [place] [address] documented as of this encounter Procedures Procedure NamePriorityDate/TimeAssociated DiagnosisCommentsECG 12-LEAD07/23/2024 12:08 PM EST documented in this encounter Results * ECG 12 lead (07/23/2024 12:08 PM EST)Specimen (Source)Anatomical Location / LateralityCollection Method / VolumeCollection TimeReceived Time07/23/2024 12:08 PM EST Narrative [facility] - 07/29/2024 12:16 PM EST Ventricular Rate : 66 BPM Atrial Rate ?: 66 ?BPM P-R Interval ? : 158 ? ms QRS Duration ? : 78 ?ms Q-T Interval ? : 404 ? ms QTC Calculation(Norma) ?: 423 ? ms Calculated P Romulus ?: 32 ?degrees Calculated R Romulus ?: 14 ?degrees Calculated T Romulus ?: 54 ?degrees NORMAL SINUS RHYTHM NORMAL ECG Confirmed by MD MCCLENDON HEBA ([id number]) on 07/29/2024 12:16:17 PM NAME : SHEY BOSS PID : [id number] : 1950 ?? Gender : Female Race : ORD : [id number] ? Procedure Date : Jul 23 2024 12:08:10 Edit Date : Jul 29 2024 12:16:18 ? Diagnosis: NORMAL SINUS RHYTHM NORMAL ECG ? Confirmed by MD MCCLENDON HEBA ([id number]) on 07/29/2024 12:16:17 PM ? Test Reason : ? Location : 119 : A17 ??A17 ? Overread By : MD MCCLENDON HEBA Edited By : MD MCCLENDON HEBA Referred By : LISS BOYD Acquired by : SADE HA Procedure Note Radiology, Radiologist, - 07/29/2024 Ventricular Rate : 66 BPM Atrial Rate : 66 BPM P-R Interval : 158 ms QRS Duration : 78 ms Q-T Interval : 404 ms QTC Calculation(Bazett) : 423 ms Calculated P Romulus : 32 degrees Calculated R Romulus : 14 degrees Calculated T Romulus : 54 degrees NORMAL SINUS RHYTHM NORMAL ECG Confirmed by MD MCCLENDON HEBA ([id number]) on 07/29/2024 12:16:17 PM NAME : SHEY BOSS PID : [id number] : 1950 Gender : Female Race : ORD : [id number] Procedure Date : Jul 23 2024 12:08:10 Edit Date : Jul 29 2024 12:16:18 Diagnosis: NORMAL SINUS RHYTHM NORMAL ECG Confirmed by MD MCCLENDON HEBA ([id number]) on 07/29/2024 12:16:17 PM Test Reason : Location : 119 : A17 A17 Overread By : MD MCCLENDON HEBA Edited By : MD MCCLENDON HEBA Referred By : LISS BOYD Acquired by : SADE HA Authorizing ProviderResult TypeResult StatusGeneric External Data ProviderECG ORDERABLESFinal ResultPerforming OrganizationAddressCity/State/ZIP CodePhone Number [facility] documented in this encounter Visit Diagnoses Not on filedocumented in this encounter Care Teams Team MemberRelationshipSpecialtyStart DateEnd Date Latrell Mckeon MD PCP - GeneralFamily Medicine08/05/23 Latrell Mckeon MD [address] [place] [address] PCP - ACO Reach08/16/24 Siomara Fitzgerald DO [address] [place] [address] Referring IkvykzonhOqsdizyab04/21/24 Sugar Arenas, REFINED SYRUP OPERATOR [address] [place] [address] Social WorkerFamily Medicine/documented as of this encounter
--- OUTSIDE RECORDS SUMMARY | 2025-05-19 09:50 | XMS_ITS | Encounter Summary ---
Author Organization [facility] Address [address] [place] [address] Care Team Providers Care Manager Physical Name Role Phone Latrell Mckeon MD Primary Care Provider [phone] Siomara Fitzgerald DO Unavailable [phone] Latrell Mckeon MD Unavailable Sugar Arenas PLANOGRAMMER Unavailable [phone] Encounter Details DateTypeDepartmentCare Team (Latest Contact Info)Iuhchlqoamu45/02/2024Clinisync Result Encounter [facility] External Department Unsolicited Provider, Generic External Data Social History Tobacco UseTypesPacks/DayYears UsedDateSmoking Tobacco: FormerCigarettes1.270.7 07/10/1967 - 01/08/2012Smokeless Tobacco: NeverAlcohol UseStandard Drinks/Week CommentsYes4 (1 standard drink = 0.6 oz pure alcohol)Caffeine: 2-3 cups per day B1300 Health LiteracyAnswerDate RecordedHow often do you need to have someone help you when you read instructions, pamphlets, or other written material from your doctor or pharmacy?Aayiquqvf43/26/2024Social Connection and Isolation Panel AnswerDate RecordedIn a typical week, how many times do you talk on the phone with family, friends, or neighbors?More than three times a week02/02/2024How often do you get together with friends or relatives?Three times a week02/02/2024 How often do you attend religion or caodaism services?Patient ronupvko08/26/2024 Do you belong to any clubs or organizations such as religion groups, unions, fraternal or athletic groups, or school groups?Patient reihnuum68/26/2024How often do you attend meetings of the clubs or organizations you belong to?Patient ozdklxom83/26/2024re you , , , , never , or living with a partner?Never skzvyiz2402/02/2024UDIT-CAnswerDate RecordedQ1: How often do you have a drink containing alcohol?Monthly or less03/03/2024Q2: How many drinks containing alcohol do you have on a typical day when you are drinking?3 or Q3: How often do you have six or more drinks on one occasion?Less than ligdskz9703/03/2024Overall Financial Resource Strain (CARDIA) AnswerDate RecordedHow hard is it for you to pay for the very basics like food, housing, medical care, and heating?Patient yaizxdnc24/26/2024HQ-2AnswerDate RecordedPatient Health Questionnaire-2 Irbvn035[facility] [employer] [facility] Occupational [facility] - Occupational Stress QuestionnaireAnswerDate RecordedDo you feel stress - tense, restless, nervous, or anxious, or unable to sleep at night because yourmind is troubled all the time - these days?To some gilbjm1302/02/2024 Exercise Vital SignAnswerDate RecordedOn average, how many days per week do you engage in moderate to strenuous exercise (like a brisk walk)?Patient declined 02/02/2024On average, how many minutes do you engage in exercise at this level? Patient gdgtdoxu59/26/2024Hunger Vital SignAnswerDate RecordedWithin the past 12 months, you worried that your food would run out before you got the money to buy more.Patient dvxocsfo89/26/2024Within the past 12 months, the food you [...] homeless or living in a jail (including now)?No02/02/2024CommentsUnknownSex and Gender InformationValueDate RecordedSex Assigned [...] 10:00 AM Jaz Miranda MAPatient Health Questionnaire-2 Bzoet083 10:00 AM Jaz Miranda MA * QuestionAnswerDate [...] 10:00 AM Jaz Miranda MAPatient Health Questionnaire-9 Vrmyb179 10:00 AM Jaz Miranda MA documented as of this encounter Plan of Treatment DateTypeDepartmentCare Team (Latest Contact Info)Takufwfgnjo19/26/2025 3:30 PM ESTOffice Visit [facility] [address] [place] [address] Sugar Cruz S, AUD [address] [place] [address] 06/09/2025 1:10 PM ESTOffice Visit [facility]IANNE Girard Otol[facility]ology [address] [facility] [address] [place] [address] Layla Houston MD [address] [facility] [address] [place] [address] documented as of this encounter Procedures Procedure NamePriorityDate/TimeAssociated DiagnosisCommentsXR FOOT RT MIN 3V 04/10/2024 7:25 AM EDT documented in this encounter Results * XR FOOT RT MIN 3V (04/10/2024 7:25 AM EDT)Anatomical RegionLateralityModality OtherSpecimen (Source)Anatomical Location / LateralityCollection Method / VolumeCollection TimeReceived Time04/10/2024 7:25 AM EDT Narrative 04/10/2024 7:27 AM EDT [facility] ?[address] ? [place] [address] ?XRay Report ? Signed ? Patient: SHEY BOSS L ?MR#: [id number] ?? : 1950 ?Acct:[id number] ?? Age/Sex: 73 / F ?ADM Date: 04/09/24 ?? Loc: EC ? Attending Dr: Marnie Sanchez D.P.M. ? Ordering Physician: Marnie Sanchez D.P.M. ?? Date of Service: 10/01/24 ?? Procedure(s): XR foot RT min 3V ?? Accession Number(s): [id number] ? cc: Marnie Sanchez D.P.M.; Latrell Mckeon M.D. ? [facility] ? [address] [facility] ? [place] [address] ? Patient Name: ?? SHEY BOSS ? MRN: [facility]:[id number] ? date: 1950 ?Sex: F ?? Assigned Patient Location: EC ?? Current Patient Location: ? Accession/Order Number: [id number] ?? Exam Date: 04/09/2024 ??09:34 ?Report Date: 04/10/2024 ??07:25 ? At the request of: ?? MARNIE ??NIECY ? Procedure: ??XR foot RT min 3V ? PROCEDURE: XR foot RT min 3V ? COMPARISON: None. ? HISTORY: RIGHT FOOT PAIN ? FINDINGS: ?? BONES:No acute fracture or dislocation. Mild to moderate degenerative changes ?? most significant first metatarsal-phalangeal joint. Mild to moderate ?? enthesopathic spurring of the calcaneus at the Achilles and plantar ?? insertions. ?? 2. Partially visualized screws in the distal tibia with fracture of one of the ? screws ?? SOFT TISSUES:Negative. No visible soft tissue swelling. ?? EFFUSION:None visible. ?? OTHER: Negative. ? XR/XR foot RT min 3V ?? IMPRESSION: ? Lukh-qc-eqsgrbcr osteoarthritis ? Electronically authenticated by: WILLARD ??KARAN ?? Date: 04/10/2024 ??07:25 ? Dictated By: ?Willard Russo M.D. ? Signed By: ?04/10/24726 ? DD/ 4 ? TD/TT: ? Curling Machine Operator: Procedure Note Radiology, Radiologist, MD - 04/10/2024 [place] [address] XRay Report Signed Patient: SHEY BOSS R#: [id number] : 2Acct:[id number] Age/Sex: 73 / FADM Date: 04/09/24 Loc: EC Attending Dr: Marnie Sanchez D.P.M. Ordering Physician: Marnie Sanchez D.P.M. Date of Service: 04/09/24 Procedure(s): XR foot RT min 3V Accession Number(s): [id number] cc: Marnie Sanchez D.P.M.; Latrell Mckeon M.D. [address] [address] Patient Name: SHEY BOSS MRN: [id number] date: 1950 Sex: F Assigned Patient Location: Current Patient Location: Accession/Order Number: [id number] Exam Date: 04/09/2024 09:34 Report Date: 04/10/2024 [...] Negative. XR/XR foot RT min 3V IMPRESSION: Pera-xy-udxtkxex osteoarthritis Electronically authenticated by: WILLARD RUSSO Date: 04/10/2024 07:25 Dictated By: Willard Russo M.D. Signed By:04/10/24726 DD/ 4 TD/TT: Curling Machine Operator: Authorizing ProviderResult TypeResult StatusGeneric External Data Provider CLINISYNC IMAGINGFinal Result documented in this encounter Visit Diagnoses Not on filedocumented in this encounter Care Teams Team MemberRelationshipSpecialtyStart DateEnd Date Latrell Mckeon MD PCP - GeneralFamily Medicine08/05/23 Latrell Mckeon MD [address] [place] [address] PCP - ACO [facility]08/16/24 Siomara Fitzgerald DO [address] [place] [address] Referring VzszvsmwyTejbkxlth18/21/24 Sugar Arenas, FABIANO [address] [place] [address] Social WorkerFamily Medicine/documented as of this encounter
--- OUTSIDE RECORDS SUMMARY | 2025-05-19 09:50 | XMS_ITS | Encounter Summary ---
Author Organization [facility] Address [address] [place] [address] Care Team Providers Care Telecommunications Administrator Name Role Phone Latrell Mckeon MD Primary Care Provider [phone] Siomara Fitzgerald DO Unavailable [phone] Latrell Mckeon MD Unavailable Sugar Arenas SOLUTION DESIGN AND ANALYSIS MANAGER Unavailable [phone] Encounter Details DateTypeDepartmentCare Team (Latest Contact Info)Tusvyrctier37/14/2024Clinisync Result Encounter [facility] External Department Unsolicited Provider, Generic External Data Social History Tobacco UseTypesPacks/DayYears UsedDateSmoking Tobacco: FormerCigarettes1.270.7 07/10/1967 - 01/08/2012Smokeless Tobacco: NeverAlcohol UseStandard Drinks/Week CommentsYes4 (1 standard drink = 0.6 oz pure alcohol)Caffeine: 2-3 cups per day B1300 Health LiteracyAnswerDate RecordedHow often do you need to have someone help you when you read instructions, pamphlets, or other written material from your doctor or pharmacy?Pgkvacqsn26/26/2024Social Connection and Isolation Panel AnswerDate RecordedIn a typical week, how many times do you talk on the phone with family, friends, or neighbors?More than three times a week02/02/2024How often do you get together with friends or relatives?Three times a week02/02/2024 How often do you attend baptist or synagogue services?Patient /26/2024 Do you belong to any clubs or organizations such as baptist groups, unions, fraternal or athletic groups, or school groups?Patient zcieylec90/26/2024How often do you attend meetings of the clubs or organizations you belong to?Patient jtlqqmva77/26/2024re you , , , , never , or living with a partner?Never mxsdumf1402/02/2024UDIT-CAnswerDate RecordedQ1: How often do you have a drink containing alcohol?Monthly or less03/03/2024Q2: How many drinks containing alcohol do you have on a typical day when you are drinking?3 or Q3: How often do you have six or more drinks on one occasion?Less than qgqcoxj5503/03/2024Overall Financial Resource Strain (CARDIA) AnswerDate RecordedHow hard is it for you to pay for the very basics like food, housing, medical care, and heating?Patient gsfffyvt13/26/2024HQ-2AnswerDate RecordedPatient Health Questionnaire-2 Tpojd798[facility] [employer] [facility] Occupational Health - Occupational Stress QuestionnaireAnswerDate RecordedDo you feel stress - tense, restless, nervous, or anxious, or unable to sleep at night because yourmind is troubled all the time - these days?To some gfwhvi7502/02/2024 Exercise Vital SignAnswerDate RecordedOn average, how many days per week do you engage in moderate to strenuous exercise (like a brisk walk)?Patient declined 02/02/2024On average, how many minutes do you engage in exercise at this level? Patient sehnzxno15/26/2024Hunger Vital SignAnswerDate RecordedWithin the past 12 months, you worried that your food would run out before you got the money to buy more.Patient scbpvzma87/26/2024Within the past 12 months, the food you [...] homeless or living in a fpc (including now)?No02/02/2024CommentsUnknownSex and Gender InformationValueDate RecordedSex Assigned [...] 10:00 AM Jaz Miranda MAPatient Health Questionnaire-2 Okrmx117 10:00 AM Jaz Miranda MA * QuestionAnswerDate of AssessmentAuthorTrouble falling or staying asleep, or sleeping too muchMore than half the days08/27/2024 10:00 AM Jaz Miranda MAFeeling tired or having little energyMore than half the days08/27/2024 10:00 AM Jza Miranda MAPoor appetite or overeatingNot at all08/27/2024 [...] 10:00 AM Jaz Miranda MAPatient Health Questionnaire-9 Lyuku523 10:00 AM Jaz Miranda MA documented as of this encounter Plan of Treatment DateTypeDepartmentCare Team (Latest Contact Info)Ihmbuvxfnkz14/26/2025 3:30 PM ESTOffice Visit [facility] [address] [facility] [address] Sugar Cruz S, AUD [address] [place] [address] 06/09/2025 1:10 PM ESTOffice Visit [facility]IANNE Girard Otol[facility]ology [address] [facility] [address] [place] [address] Layla Houston MD [address] [facility] [address] [place] [address] documented as of this encounter Procedures Procedure NamePriorityDate/TimeAssociated DiagnosisCommentsMR LUMBAR SPINE WO CON04/22/2024 1:57 PM EDT documented in this encounter Results * MR LUMBAR SPINE WO CON (04/22/2024 1:57 PM EDT)Anatomical RegionLaterality ModalityOtherSpecimen (Source)Anatomical Location / LateralityCollection Method / VolumeCollection TimeReceived Time04/22/2024 1:57 PM EDT Narrative 04/22/2024 2:00 PM EDT [facility] ?[address] ? [place] [address] ? Magnetic Resonance Report ? Signed ? Patient: SHEY BOSS L ?MR#: [id number] ?? : 1950 ?Acct:[id number] ?? Age/Sex: 73 / F ?ADM Date: 04/22/24 ?? Loc: MRI ? Attending Dr: Talat Braden M.D. ? Ordering Physician: Talat Braden M.D. ?? Date of Service: 04/22/24 ?? Procedure(s): MR lumbar spine wo con ?? Accession Number(s): [id number] ? cc: Talat Braden M.D.; Latrell Mckeon M.D. ? [facility] ? [address] ? [place] [address] ? Patient Name: ?? SHEY BOSS ? MRN: [facility]:[id number] ? date: 1950 ?Sex: F ?? Assigned Patient Location: MRI ?? Current Patient Location: PM ?? Accession/Order Number: [id number] ?? Exam Date: 04/22/2024 ??07:45 ?Report Date: 04/22/2024 ??13:57 ? At the request of: ?? ANDRI ??GIEDRAITIS ? Procedure: ??MR lumbar spine wo con ? EXAMINATION: MR lumbar spine wo con ? HISTORY: Lumbar stenosis with neuroclaudication ? COMPARISON: No relevant comparison available. ? TECHNIQUE: A variety of imaging planes and parameters were utilized for ?? visualization of suspected pathology. ? FINDINGS: ?? For the purposes of numbering, sagittal T2 image # 8 extends from the T10/T11 ?? vertebral body superiorly to the S3-S4 level inferiorly. ? PARASPINAL AREA: Normal with no visible mass. ?? BONES: Normal alignment with no acute fracture, dislocation or bone edema. ?? CORD/CAUDA EQUINA: Normal caliber, contour, and signal intensity. ? DISC LEVELS: ?? 12-L1: No significant disc/facet abnormality, spinal stenosis, or foraminal ?? stenosis. ?? L1-L2: Moderate disc space narrowing and disc desiccation. Moderate diffuse ?? disc bulge with ligamentum flavum hypertrophy and facet osteoarthropathy ?? L2-L3: Early degenerative disc disease is present without focal protrusion or ?? neural impingement. ?? L3-L4: Disc space narrowing and disc desiccation. Mild diffuse disc/osteophyte ? complex. Moderate ligamentum flavum hypertrophy. Mild central canal stenosis. ?? No foraminal stenosis ?? L4-L5: Disc desiccation. Mild diffuse disc/osteophyte complex. Severe ?? segmental ?? flavum hypertrophy and facet osteoarthropathy. Severe central canal stenosis. ?? No right foraminal stenosis. Mild narrowing of the left neural foramen ?? L5-S1: Disc desiccation. Posterior broad-based disc protrusion extending ?? posteriorly up to 2.8 mm. No central or foraminal stenosis ? MR/MR lumbar spine wo con ?? IMPRESSION: ? Degenerative changes most significant at L4-L5 where there is severe central ?? canal stenosis and mild left foraminal stenosis ? Electronically authenticated by: WILLARD ??KARAN ?? Date: 04/22/2024 ??13:57 ? Dictated By: ?Willard Russo M.D. ? Signed By: ?04/22/24 1400 ? DD/ 1357 ? TD/TT: ? Electrical Cad Technician: Procedure Note Radiology, Radiologist, MD - 04/22/2024 [place] [address] Magnetic Resonance Report Signed Patient: SHEY BOSS LMR#: [id number] : 1950cct:[id number] Age/Sex: 73 / FADM Date: 04/22/24 Loc: MRI Attending Dr: Talat Braden M.D. Ordering Physician: Talat Braden M.D. Date of Service: 04/22/24 Procedure(s): MR lumbar spine wo con Accession Number(s): [id number] cc: Talat Braden M.D.; Latrell Mckeon M.D. The [place] [id number] Patient Name: SHEY BOSS MRN: [id number] date: 1950 Sex: F Assigned Patient Location: MRI Current Patient Location: Accession/Order Number: [id number] Exam Date: 04/22/2024 07:45 Report Date: 04/22/2024 13:57 At the request of: TALAT BRADEN Procedure: MR lumbar spine wo con EXAMINATION: [...] M.D. Signed By:04/22/24 1400 DD/ 1357 TD/TT: Electrical Cad Technician: Authorizing ProviderResult TypeResult StatusGeneric External Data Provider CLINISYNC IMAGINGFinal Result documented in this encounter Visit Diagnoses Not on filedocumented in this encounter Care Teams Team MemberRelationshipSpecialtyStart DateEnd Date Latrell Mckeon MD PCP - GeneralFamily Medicine08/05/23 Latrell Mckeon MD [address] [place] [address] PCP - [facility]CO [facility]08/16/24 Siomara Fitzgerald DO [address] [place] [address] Referring KvdhfcxheTzjeyktdt97/21/24 Sugar Arenas, SOLUTION DESIGN AND ANALYSIS MANAGER [address] [place] [address] Social WorkerFamily Medicine/documented as of this encounter
--- OUTSIDE RECORDS SUMMARY | 2025-05-19 09:50 | XMS_ITS | Encounter Summary ---
Author Organization [facility] Address [address] [place] [address] Care Team Providers Care Grooving Lathe Tender Name Role Phone Latrell Mckeon MD Primary Care Provider [phone] Siomara Fitzgerald DO Unavailable [phone] Latrell Mckeon MD Unavailable Sugar Arenas DISEASE INTERVENTION SPECIALIST Unavailable [phone] Encounter Details DateTypeDepartmentCare Team (Latest Contact Info)Dumnmvsovva55/21/2024Clinisync Result Encounter [facility] Department Unsolicited Latrell Mckeon MD [address] [place] [id number] Social History Tobacco UseTypesPacks/DayYears UsedDateSmoking Tobacco: MgoezdRuahksqtqj6726201 - 2012Smokeless Tobacco: CmaofI6327 Health LiteracyAnswerDate RecordedHow often do you need to have someone help you when you read instructions, pamphlets, or other written material from your doctor or pharmacy?Pxlkqrnoa22/26/2024Social Connection and Isolation PanelAnswerDate RecordedIn a typical week, how many times do you talk on the phone with family, friends, or neighbors?More than three times a week02/02/2024How often do you get together with friends or relatives?Three times a week02/02/2024How often do you attend scientology or mandaeism services?Patient diajmcwa80/26/2024o you belong to any clubs or organizations such as scientology groups, unions, fraternal or athletic groups, or school groups?Patient ycrijzbe60/26/2024How often do you attend meetings of the clubs or organizations you belong to?Patient lemhzapb72/26/2024re you , , , , never , or living with a partner?Never hxppxdl1002/02/2024UDIT-CAnswerDate RecordedQ1: How often do you have a [...] like food, housing, medical care, and heating?Patient jikxzmaz33/26/2024HQ-2AnswerDate RecordedPatient Health Questionnaire-2 Rupge267Finmountainstar healthcare [place] of Occupational Health - Occupational Stress QuestionnaireAnswerDate RecordedDo you feel stress - tense, restless, nervous, or anxious, or unable to sleep at night because yourmind is troubled all the time - these days?To some mqwqtx4402/02/2024Exercise Vital Sign AnswerDate RecordedOn average, how many days per week do you engage in moderate to strenuous exercise (like a brisk walk)?Patient yudmmfpy51/26/2024On average, how many minutes do you engage in exercise at this level?Patient declined 02/02/2024Hunger Vital SignAnswerDate RecordedWithin the past 12 months, you worried that your food would run out before you got the money to buymore.Patient qspkfsai95/26/2024Within the past 12 months, the food you bought just didn't last and you didn't have money to get more.Patient pegposcl39/26/2024RAPARE - TransportationAnswerDate RecordedIn the past 12 months, [...] were you homeless or living in a detention (including now)?No02/02/2024CommentsUnknownSex and Gender InformationValueDate RecordedSex Assigned at BirthNot on fileLegal SexFemale 09/21/2022 7:08 PM EDTGender IdentityNot on fileSexual OrientationNot on file documented as of this encounter Functional Status * AUDIT-C ScoreAnswerDate of EhzoljyypuYhhhvm365/25/2024 8:19 AM Yadira Gill * QuestionAnswerDate of AssessmentAuthorQ1: How often do you have a drink containing alcohol?Monthly or less03/03/2024 8:19 AM Yadira GillQ2: How many drinks containing alcohol do you have on a typical day when you are drinking?3 or 8:19 AM Yadira GillQ3: How often do you have six or more drinks on one occasion?Less than monthly 03/03/2024 8:19 AM Yadira Gill * Over the past 2 weeks, how often have you been bothered by any of the following problems?QuestionAnswerDate of AssessmentAuthorLittle interest or pleasure in doing thingsNot at all08/27/2024 10:00 AM Jaz Miranda MA Feeling down, depressed, or hopelessNot at all08/27/2024 10:00 AM Jaz Miranda MAPatient Health Questionnaire-2 Pnyxw957 10:00 AM Jaz Miranda MA * QuestionAnswerDate of AssessmentAuthorTrouble falling or staying asleep, or sleeping too muchMore than half the days08/27/2024 10:00 AM Jaz Miranda MAFeeling tired or having little energyMore than half the days08/27/2024 10:00 AM ESTMeyer, Jaz, MAPoor appetite or overeatingNot at all08/27/2024 10:00 AM Jaz Miranda, MAFeeling bad about yourself - or that you are a failure or have let yourself or your family downNot at all08/27/2024 10:00 AM Jaz Valdez MATrouble concentrating on things, such as reading the newspaper or watching televisionNot at all08/27/2024 10:00 AM Jaz Miranda, MAMoving or speaking so slowly that other people could have noticed? Or the opposite - being so fidgety or restless that you have been moving around a lot more than usual.Not at all08/27/2024 10:00 AM Jaz Miranda MAThoughts that you would be better off or hurting yourself in some way Not at all08/27/2024 10:00 AM Jaz Miranda MAPatient Health Questionnaire-9 Ntxip884 10:00 AM Jaz Miranda MA documented as of this encounter Plan of Treatment DateTypeDepartmentCare Team (Latest Contact Info)Ehaojqbggkn89/26/2025 3:30 PM ESTOffice Visit [facility] [address] [place] [phone] Sugar Cruz, AUD [address] [facility] [place] [address] 06/09/2025 1:10 PM ESTOffice Visit [facility] [address] [facility] [address] [place] [address] Layla Houston MD [address] [facility] [address] [place], [place] [address] documented as of this encounter Procedures Procedure NamePriorityDate/TimeAssociated DiagnosisCommentsMM TOMOSYNTHESIS SCREENING BI11/28/2023 3:15 PM EDT documented in this encounter Results * MM TOMOSYNTHESIS SCREENING BI (11/28/2023 3:15 PM EDT)Anatomical Region LateralityModalityOtherSpecimen (Source)Anatomical Location / Laterality Collection Method / VolumeCollection TimeReceived Time11/28/2023 3:15 PM EDT Narrative 11/28/2023 3:16 PM EDT The ?[address] ? [place], [facility] ? Mammography Report ? Signed ? Patient: KARYN,SHEY L ?MR#: [id number] ?? : 1950 ?Acct:[id number] ?? Age/Sex: 73 / F ?ADM Date: 11/28/23 ?? Loc: MAMMO ? Attending Dr: Latrell Mckeon M.D. ? Ordering Physician: Latrell Mckeon M.D. ?Results: ? Date of Service: 11/28/23 ?Follow Up: ? Procedure(s): MM tomosynthesis screening BI ?? Accession Number(s): [id number] ? cc: Latrell Mckeon M.D. ? Patient Name: ? SHEY BOSS ? MR#: [id number] ? : 1950 ? Exam Date: 11/28/2023 ?? Ordering Doctor: DR Latrell Mckeon . ? RADIOLOGY REPORT ? PROCEDURE: ? MM TOMOSYNTHESIS SCREENING BI ? COMPARISON: ? MG MAMM SCREEN 3D RONALD CAD, 11/24/2022. ??MG MAMM SCREEN 3D RONALD ?? CAD, 11/11/2021. ??MG MAMM SCREEN 3D RONALD CAD, 11/05/2020. ? INDICATIONS: ? Screening ? Calculator Name ? NCI Breast Cancer Risk Assessment Tool ?? 5 Year Breast Cancer Risk ? 2.00% ?? Lifetime Breast Cancer Risk ? 5.10% ?? Personal Breast Cancer ?No ?? Personal Ovarian Cancer ? No ?? Treatments ? None ?? Family Cancers ? Father with lung cancer at age 45. ? LOCATION: ? The ? BREAST COMPOSITION: ? The breasts are almost entirely fatty. ? FINDINGS: ? DIAGNOSTIC CATEGORY 2--BENIGN FINDING: ? RIGHT BREAST: ??No significant suspicious finding. ??Scattered benign-appearing ?? calcifications are present. ??No significant change has occurred. ? LEFT BREAST: ??No significant suspicious finding. ??No significant change has ?? occurred. ? RECOMMENDATIONS: ? ROUTINE MAMMOGRAM AND CLINICAL EVALUATION IN 12 MONTHS. ? PLEASE NOTE: ??A NORMAL MAMMOGRAM DOES NOT EXCLUDE THE POSSIBILITY OF BREAST ?? CANCER. ??A CLINICALLY SUSPICIOUS PALPABLE LUMP SHOULD BE BIOPSIED. ? Dictated by: Mirza Cleveland M.D. on 11/28/2023 at 14:38 ? Approved by: Mirza Cleveland M.D. on 11/28/2023 at 15:15 ? Dictated By: ?Mirza Cleveland M.D. ? Signed By: ?11/28/23 1516 ? DD/ 1515 ? TD/TT: ? Gym Teacher: Procedure Note Radiology, Radiologist, MD - 11/28/2023 [place] [address] Mammography Report Signed Patient: SHEY BOSS LMR#: [id number] : 2Acct:[id number] Age/Sex: 73 / FADM Date: 11/28/23 Loc: MAMMO Attending Dr: Latrell Mckeon M.D. Ordering Physician: Latrell Mckeon M.D.Results: Date of Service: 11/28/23Follow Up: Procedure(s): MM tomosynthesis screening BI Accession Number(s): [id number] cc: Latrell Mckeon M.D. Patient Name: SHEY BOSS MR#: [id number] : 1950 Exam Date: 11/28/2023 Ordering Doctor: [...] lung cancer at age 46. LOCATION: The BREAST COMPOSITION: The breasts are almost entirely [...] M.D. Signed By:11/28/23 1516 DD/ 1515 TD/TT: Gym Teacher: Authorizing ProviderResult TypeResult StatusMarc Linda MDCLINISYNC IMAGING Final Result documented in this encounter Visit Diagnoses Not on filedocumented in this encounter Care Teams Team MemberRelationshipSpecialtyStart DateEnd Date Latrell Mckeon MD PCP - GeneralFamily Medicine08/05/23 Latrell Mckeon MD [address] [place] [address] PCP - ACO Reach08/16/24 Siomara Fitzgerald DO [address] [place] [address] Referring VmyknbpesBqesdgfmf29/21/24 Sugar Arenas, FABIANO [address] [place] [address] Social WorkerFamily Medicinedocumented as of this encounter
--- OUTSIDE RECORDS SUMMARY | 2025-05-19 09:50 | XMS_ITS | Clinical Summary ---
Author Organization [facility] Address [facility] [place] [address] Care Team Providers Care Vise Hand Name Role Phone Katie Hairston MD Unavailable [phone] Latrell Mckeon MD Primary Care Provider [phone] Allergies No known active allergies Medications MedicationSigDispense [...] constipation.07/26/2024 Active Active Problems ProblemNoted DateDiagnosed DateElectrolyte fuhsyglpdwc27/17/2025Obesity, Class II, BMI 35-39.9007/24/2024S/P repair of paraesophageal rkmach725Acute postoperative pain07/24/2024HTN (hypertension)07/23/2024 Assessment & Plan (07/23/2024 1:44 PM EST): -Managed on losartan -BP today 152/73 -EKG reviewed, NSR Tytudlf3207/23/2024 Assessment & Plan (07/23/2024 1:51 PM EST): -Body mass index is 37.45 kg/m??. Screening for malignant neoplasm of colon07/23/2024Transient ischemic attack 07/23/2024GERD (gastroesophageal reflux disease)07/23/2024 Assessment & Plan (07/23/2024 1:45 PM EST): -Managed on PPI, Pepcid Hiatal qfzqjc8107/23/2024Former xmeohr0807/23/2024 Assessment & Plan (07/23/2024 1:52 PM EST): [...] EST): -Follows OP with pain management Paraesophageal oyhgud5804/29/20249989Xxzmrt66/25/6406Jzpyjahwc94/16/2024Senile pibduzqu70/02/0916Pncrlqftrdc83/04/2024OPD (chronic obstructive pulmonary disease)08/11/20236866Ibjdupiayjgv02/02/2024 Assessment & Plan (07/23/2024 1:45 PM EST): -Continue statin Encounter for long-term (current) use of mnezzxaapqz24/02/2024Lower extremity edema08/11/2023OSA (obstructive sleep apnea)08/11/2023 Assessment & Plan (07/23/2024 1:43 PM EST): -Compliant with CPAP Osteopenia of lumbar spine08/11/2023rimary /02/2024 Assessment & Plan (07/23/2024 1:50 PM EST): -Managed on Ambien Primary osteoarthritis of both knees08/11/2023Seasonal allergic rhinitis due to liajga3208/11/2023TIA (transient ischemic attack)08/11/2023 Assessment & Plan (07/23/2024 1:45 PM EST): -Noted in EMR however patient denies Hiatal hernia with gastroesophageal reflux disease without hljouesceuo17/02/2024 Psychophysiologic ewqjygdn86/17/2022ersonal history of urinary (tract) nurbebznwh98/17/2022ough, kpjjukhxnir17/16/2022hronic obstructive pulmonary pwuavya8611/04/2021 Assessment & Plan (07/23/2024 1:43 PM EST): -Continue inhalers, has not needed to use albuterol in the past 3-4 months -SpO2 99% on RA -Follows OP with PCP -Patient in NAD -Admits to chronic exertional dyspnea, not new or worsening -Former heavy smoker -CXR pending Contact with and (suspected) exposure to covid-19011/04/2021hortness of breath 11/04/2021yspnea, qyhuewhcive54/26/2022Lumbar /10/2022bdominal ezauxn1809/16/2021ther specified disorders of bone density and structure, other site09/16/2021symptomatic menopausal state09/16/2021ain in right ankle and joints of right foot09/16/2021 Resolved Problems ProblemNoted DateDiagnosed DateResolved DateBMI 39.0-39.9,adult07/23/2024 07/23/2024lass 2 severe obesity due to excess calories with serious comorbidity and body mass index (BMI) of38.0 to 38.9 in adultEssential hypertension, vfwvrx77Morbid obesity due to excess calories HypertensionMorbid (severe) obesity due to excess ojuvhfvp63 Encounters DateTypeDepartmentCare FbefKuxamzvppro77/15/2025 11:00 AM EDTOffice Visit General Surgery [address] [place] [address] Katarzyna Grover, LISSETTE.AUTO PHONE INSTALLER Paraesophageal hernia (Primary Dx)04/22/2025Travelfrom Last 3 Months Family History Medical HistoryRelationCommentsAnesthesia ProblemsNo Family History Social History Tobacco UseTypesPacks/DayYears UsedDateSmoking Tobacco: FoomoyWzzsrlmlww4872 - 1968Smokeless Tobacco: Never Tobacco Cessation:Counseling Given: Not Answered Comments:Age 17 - 61, 1/2 - 2 PPD, quit while at 2 PPD Alcohol UseStandard Drinks/WeekCommentsNot Currently0 (1 standard drink = 0.6 oz pure alcohol)Area Deprivation IndexAnswerDate RecordedNational Score (1-100), lower number is lower wnoy4148State Score (1-10), lower number is lower jzbt894ata from: https://www.neighborhoodatlas.medicine.[facility].edu/. Last address used for myrqxj[address]bbv[address] [facility]4CommentsNoSex and Gender InformationValueDate RecordedSex Assigned at BirthNot on fileLegal Sex Wfgwrs2704/02/2024 3:17 PM EDTGender ZxopdjzrBwzxjy13/15/2024 1:21 PM EDTSexual OrientationNot on file Last Filed Vital Signs Vital SignReadingTime TakenCommentsBlood Ysfslstu564/7904/23/2025 11:12 AM EDT Yftcn037404/23/2025 11:12 AM TQXWxbhkzuqmjo51.1 ??C (97 ??F)04/23/2025 11:12 AM EDTRespiratory Oiit856507/26/2024 9:55 AM ESTOxygen Jwuaasfjey98%07/26/2024 9:55 AM ESTInhaled Oxygen Concentration--Qkwotz337.4 kg (228 lb)04/23/2025 11:12 AM PMBPvulwn810.1 cm (5' 5 )04/23/2025 11:12 AM EDTBody Mass Index37.9404/23/2025 11:12 AM EDT Plan of Treatment Health MaintenanceDue DateLast DoneCommentsAnnual PCP Team Chronic Disease Visit 09/21/1969Hepatitis C Yorehmxfk84/15/1970DTaP,Tdap,Td Vaccine (1 - Tdap) 09/21/1970CT Wolyatuggksf21/15/1997Cologuard (FIT-DNA)09/21/1996Colonoscopy 09/21/1996Colorectal Cancer Oqpqytejm53/15/1997Fecal Occult Blood09/21/1996Lipid Hdwjdzsuj18/15/4810Rrkzmccvtylax75/15/1997Shingrix Vaccine (1 of 2)09/21/2001 Medicare Annual Wellness Visit09/07/2016Bone Density Zeapljzgu91/15/2017Advance Directive Xpaeqzgemg20/01/2025Covid-19 Vaccine ( season)2025 03/27/2023, 05/03/2022, 04/12/2021, Additional history existsInfluenza Vaccine (#1)511/12/2023, 05/03/2022, 04/12/2021, Additional history exists Mammogram Uakdhokow92/21/758164Diabetes Bsfescdjv24, 07/24/2024, 07/23/2024Pneumococcal Vaccine: 50+Qekzymldm52/19/2022, 05/16/2019, 01/31/2018RSV AehcwwoFvaxxyvfe91/18/2023 Medical Devices ImplantedTypeAreaManufacturerDevice IdentifierShelf Expiration DateModel / Serial / LotFelt Thk1.65mm Ptfe 4x.5in Cardiovascular Sterile - [id number] [facility]ImplantN/A: AbdomenBARD PERIPHERAL [id number] / / [id number] Procedures Procedure NamePriorityDate/TimeAssociated DiagnosisCommentsCT OUTSIDE CD DICOM KYYDYS5503/04/2025 BASIC METABOLIC SCMJGQfgvvnh34/17/2025 1:13 AM EST from Last 3 Months or Most Recently Relevant to Health Maintenance Results * CT-CT LUNG SCREENING LOW-DOSE IMPORT (03/04/2025)Anatomical RegionLaterality ModalityOtherSpecimen (Source)Anatomical Location / LateralityCollection Method / VolumeCollection TimeReceived Time03/04/2025 Narrative 04/23/2025 5:33 PM EDT Images were obtained outside of [facility] Procedure Note Provider, [facility] [place] - 04/23/2025 Images were obtained outside of [facility] Authorizing ProviderResult TypeResult StatusCcf ProviderRADIOLOGYFinal Result * (ABNORMAL) BASIC METABOLIC PANEL (07/26/2024 1:13 AM EST)ComponentValueRef RangeTest MethodAnalysis TimePerformed AtPathologist AoxlsovpgUqpdiym018(H)74 - 99 mg/dL07/26/2024 2:33 AM ESTOHIOHEALTH MANSFIELD [facility]OSP[facility] LABComment: The [place] Diabetes Association (ADA) provides guidance for cutoff [...] Standards of Medical Care in Diabetes 2016, [place] Diabetes Association. Diabetes Care. 2016.39(Suppl 1). UPO872 - 21 mg/dL07/26/2024 2:33 AM [facility] Creatinine0.920.58 - 0.96 mg/dL07/26/2024 2:33 AM [facility] ZXYImykkh624287 - 144 mmol/L07/26/2024 2:33 AM [facility] LABPotassium3.4(L)3.7 - 5.1 mmol/L07/26/2024 2:33 AM [facility] IBMNpcgxzuk41914 - 107 mmol/L07/26/2024 2:33 AM [facility] UZOMN77409 - 30 mmol/L07/26/2024 2:33 AM [facility] LABAnion Por709 - 15 mmol/L07/26/2024 2:33 AM [facility] LABCalcium, Total9.08.5 - 10.2 mg/dL07/26/2024 2:33 AM [facility] LABEstimated Glomerular Filtration Rate66>=60 mL/min/1.73m 07/26/2024 2:33 AM [facility] LABComment:Estimated Glomerular Filtration Rate (eGFR) is calculated [...] VolumeCollection TimeReceived TimeBloodBLOOD SPECIMEN / UnknownVenipuncture / Ktoqpyw3307/26/2024 1:13 AM EST07/26/2024 1:22 AM EST Narrative Authorizing ProviderResult TypeResult StatusLuciano TastaldiLABORATORYFinal ResultPerforming OrganizationAddressCity/State/ZIP CodePhone Number [facility] [address] [facility] [address] [place] [address], [place] from Last 3 Months or Most Recently Relevant to Health Maintenance Insurance Care Teams Team MemberRelationshipSpecialtyStart DateEnd Date Latrell Mckeon MD [address] [place] [address] PCP - GeneralFami Ncqckzlk61/23/24 Katie Hairston MD [address] [place] [id number] Internal Medicine04/02/24
--- OUTSIDE RECORDS SUMMARY | 2025-05-19 09:50 | XMS_ITS | Clinical Summary ---
Author Organization [facility] Address [address] [place] [address] Care Team Providers Care Company Controller Name Role Phone Latrell Jack MD Primary Care Provider [phone] Siomara Fitzgerald DO Unavailable [phone] Latrell Jack MD Unavailable Allergies No [...] by mouth every 12 (twelve) hours if jkowpz135Active acetaminophen (Tylenol) 500 MG tablet Take 500 [...] tablet Take 2 mg by mouth at omkcwyh71/28/2025Active losartan (Cozaar) 100 MG tablet Indications:Essential hypertension, benignTake 1 tablet (100 mg) by mouth Daily 30 tablet 505Active atorvastatin (Lipitor) 40 MG tablet Indications:DyslipidemiaTAKE 1 TABLET BY MOUTH AT BEDTIME 90 tablet 3085Active methocarbamol (Robaxin) 750 MG tablet Indications:Degenerative lumbar spinal stenosisTAKE 1 TABLET BY MOUTH 4 TIMES A DAY NEEDED FOR MUSCLE SPASMS 60 tablet 5Active Active Problems ProblemNoted DateDiagnosed DateFormer wtuqms9202/24/2025 Assessment & Plan (02/24/2025 4:01 PM EDT): Quit in 2011 but prior 1 PPD for 40 plus years. Check LDCT chest. Degenerative lumbar spinal qqrqewwj09/28/2025 Assessment & Plan (12/04/2024 2:25 PM EDT): Recent flare and increased pain. Treat with prednisone. Use robaxin for spasms and norco PRN. Follow up with pain management next week as scheduled. Medicare annual wellness visit, uvohsprkjb52/18/2025 Assessment & Plan (08/27/2024 11:04 AM EST): [...] (05/15/2024 10:33 AM EST): Weight loss indicated. Icjwwx9503/03/20246269Gpughscmi09/02/2024 Assessment & Plan (02/09/2024 10:30 AM EDT): Problems swallowing and refer to GI for endoscopy. Senile tuguxqiy86/02/2024 Assessment & Plan (08/27/2024 11:05 AM EST): Follow with neurology. Assessment & Plan (02/09/2024 10:32 AM EDT): Worsening memory and family history of Alzheimer's. Start aricept and refer to neurology for evaluation. Ebzkmwvjbok38/04/2024Essential hypertension, frktyh1708/11/2023 Assessment & Plan (02/24/2025 4:00 PM EDT): [...] stable and continue spiriva. Use albuterol PRN. Enpwlfyrttvg47/02/2024Lower extremity edema08/11/2023Osteopenia of lumbar spine 08/11/2023TIA (transient ischemic attack)08/11/2023OSA (obstructive sleep apnea) 08/11/2023 Assessment & Plan (05/15/2024 10:35 AM EST): Sleeping well with CPAP and continue nightly. The patient is benefiting from PAP therapy. Assessment & Plan (02/09/2024 10:31 AM EDT): Sleeping well with CPAP and continue nightly. The patient is benefiting from PAP therapy. Primary /02/2024 Assessment & Plan (02/24/2025 4:01 PM EDT): Sleeping well with lunesta and continue. Assessment & Plan (05/15/2024 10:35 AM EST): Sleeping well with ambien and continue. Assessment & Plan (02/09/2024 10:31 AM EDT): Sleeping well with ambien and continue. Assessment & Plan (08/11/2023 10:22 AM EST): Sleeping well with ambien and continue. Encounter for long-term (current) use of viesulqrqaq11/02/2024Seasonal allergic rhinitis due to cczetr0208/11/2023 Assessment & Plan (08/11/2023 10:23 AM EST): Increased symptoms and use flonase daily. Resolved Problems ProblemNoted DateDiagnosed DateResolved FojmMlzaypxkwiy70 Hiatal hernia with gastroesophageal reflux disease without xwxxpseswam81/02/2024 12/04/2024 Assessment & Plan (05/15/2024 10:34 AM EST): GERD controlled but still problems swallowing. Scheduled for surgery 07/24. Assessment & Plan (02/09/2024 10:31 AM EDT): Denies reflux but developed dysphagia. Increase protonix. Assessment & Plan (08/11/2023 10:22 AM EST): Symptoms controlled with protonix and continue. Morbid obesity due to excess pcbukspo64/ Encounters DateTypeDepartmentCare JpxlUyhbeltxkaj66/26/2025Results Follow-Up [facility] [address] [facility] [place] [address] LUNG SCREENING LOW DOSE03/04/2025linisync Result Encounter [facility] External Department Unsolicited Latrell Jack MD 03/04/2025Patient Outreach [facility] [address] [place] [address] Sugar Arenas, GOVERNMENT PROFESSOR 03/01/2025Refill [facility] [address] [facility] [place] [address] Latrell Jack MD Degenerative lumbar spinal /22/2025Refill [facility] [address] [place] [address] Latrell Jack MD Apemlikjcevb20/21/2025Results Follow-Up [facility] [address] [facility] [place] [address] Latrell Jack MD Bilateral screening omesdvtti07/21/2025linisync Result Encounter [facility] External Department Unsolicited Latrell Jack MD 02/26/2025bstract [facility] [address] [place] [place] [address] Latrell Jack MD 02/24/2025 10:30 AM EDTOffice Visit [facility] [address] [facility] [place] [address] Latrell Jack MD Essential hypertension, benign (Primary Dx); Chronic obstructive pulmonary disease, unspecified COPD type (HCC); Primary insomnia; Primary osteoarthritis of both knees; Breast cancer screening by mammogram; Former xfabxd8802/24/2025amboo flowsheet [facility] [address] [place] [address] Latrell Jack MD from Last 3 Months Immunizations ImmunizationAdministration DatesNext DuePneumococcal Conjugate PCV 13011/25/2021 Family History Medical HistoryRelationNameCommentsCancerFatherDiabetesFather's Brother Alzheimer's diseaseFather's SisterKatherine RankinAlzheimer's diseaseMotherMadge GrinnellArthritisMotherMadge GrinnellHeart attackMotherMadge [place] ParkinsonismSiblingRelationNameStatusCommentsFatherDeceasedFather's Brother Father's SisterKatherine RankinMotherMadge GrinnellDeceasedSiblingAlive Social History Tobacco UseTypesPacks/DayYears UsedDateSmoking Tobacco: FormerCigarettes1.270.7 07/10/1967 - 01/08/2012Smokeless Tobacco: Never Tobacco Cessation:Counseling Given: Not Answered Alcohol UseStandard Drinks/WeekCommentsYes4 (1 standard drink = 0.6 oz pure alcohol)Caffeine: 2-3 cups per yvmF0056 Health LiteracyAnswerDate RecordedHow often do you need [...] times a week02/02/2024How often do you attend voodoo or judaism services?Patient /26/2024o you belong to any clubs or organizations such as voodoo groups, unions, fraternal or athletic lavell ups, or school groups?Patient mrzhxfko44/26/2024How often do you attend meetings of the clubs or organizations you belong to?Patient /26/2024re you , , , , never , or living with a partner? Never eetserx8102/02/2024UDIT-CAnswerDate RecordedQ1: How often do you have a [...] like food, housing, medical care, and heating?Patient xzjsivpe53/26/2024HQ-2AnswerDate RecordedPatient Health Questionnaire-2 Jvdnh677Finmountain view hospital [place] of Occupational Health - Occupational Stress QuestionnaireAnswerDate RecordedDo you feel stress - tense, restless, nervous, or anxious, or unable to sleep at night because yourmind is troubled all the time - these days?To some sdzabk2002/02/2024Exercise Vital Sign AnswerDate RecordedOn average, how many days per week do you engage in moderate to strenuous exercise (like a brisk walk)?Patient mujivafc01/26/2024On average, how many minutes do you engage in exercise at this level?Patient declined 02/02/2024Hunger Vital SignAnswerDate RecordedWithin the past 12 months, you worried that your food would run out before you got the money to buymore.Patient /26/2024Within the past 12 months, the food you bought just didn't last and you didn't have money to get more.Patient vopdpcgc75/26/2024RAPARE - TransportationAnswerDate RecordedIn the past 12 months, [...] homeless or living in a mcc (including now)?No02/02/2024CommentsUnknownSex and Gender InformationValueDate RecordedSex Assigned at BirthNot on fileLegal SexFemale 09/21/2022 7:08 PM EDTGender IdentityNot on fileSexual OrientationNot on file Last Filed Vital Signs Vital SignReadingTime TakenCommentsBlood Trkilwti949/7608 11:00 AM EDT Mgehx85678/18/2025 11:00 AM SQSWfbrcjsybjy14.2 ??C (97.1 ??F)02/24/2025 11:00 AM EDTRespiratory Imav663002/24/2025 11:00 AM EDTOxygen Cyzjmpiecz54%02/24/2025 11:00 AM EDTInhaled Oxygen Concentration--Mubtin563 kg (226 lb)02/24/2025 11:00 AM EDT Yhjcfm392 cm (5' 3 )02/24/2025 11:00 AM EDTBody Mass Index40.03002/24/2025 11:00 AM EDT Plan of Treatment DateTypeDepartmentCare Team (Latest Contact Info)Gprlhfjpcgc32/26/2025 3:30 PM ESTOffice Visit [facility] [address] [place] [address] Sugar Cruz S, AUD [address] [place] [address] 06/09/2025 1:10 PM ESTOffice Visit [facility] [address] [facility] [address] [place] [address] Layla [place] MD [address] [facility] [address] [place] [address] Health MaintenanceDue DateLast DoneCommentsCT Ebekxvreiapj25/15/1952FIT-DNA 1950FIT1950FOBT1950Lung Cancer Screening Shared Decision Efjxcs13 1950 9842Sxiwwgpovtvju73/15/1952OVID-19 Vaccine ( season) 509/, 04/12/2021, 09/14/2020, Additional history existsInfluenza Vaccine (#1)/12/2023, 05/03/2022, 04/12/2021, Additional history existsMedicare Annual Wellness (AWV)602/9648Fnaoefxzi07/21/2026 02/27/2025, 02/27/2025, 11/28/2023, Additional history existsColonoscopy /11/2023, 10/13/2023olorectal Cancer Kmderyqys04/05/2034 Pneumococcal Vaccine: 65+ MizlhNocdtuupi73/19/2022, 05/16/2019, 01/31/2018 Procedures Procedure NamePriorityDate/TimeAssociated DiagnosisCommentsCT LUNG SCREENING LOW DOSE03/04/2025 2:31 PM EDT BI MAMMOGRAM SCREENING ENPJFGPPLPhanjmm35/21/2025 2:18 PM EDT Breast cancer screening by mammogram MM TOMOSYNTHESIS SCREENING BI02/27/2025 2:07 PM EDT from Last 3 Months Results * CT LUNG SCREENING LOW DOSE (03/04/2025 2:31 PM EDT)Anatomical RegionLaterality ModalityOtherSpecimen (Source)Anatomical Location / LateralityCollection Method / VolumeCollection TimeReceived Time03/04/2025 2:31 PM EDT Narrative 03/04/2025 2:33 PM EDT [facility] ?[address] ? [place] [address] ? CT Scan Report ? Signed ? Patient: KARYN,SHEY L ?MR#: [id number] ?? : 1950 ?Acct:[id number] ?? Age/Sex: 74 / F ?ADM Date: 08/26/25 ?? Loc: CT ? Attending Dr: Latrell Jack M.D. ? Ordering Physician: Latrell Jack M.D. ?? Date of Service: 03/04/25 ?? Procedure(s): CT lung screening low-dose ?? Accession Number(s): [id number] ? cc: Latrell Jack M.D. ? [facility] ? [address] ? [place] [address] ? Patient Name: ?? SHEY BOSS ? MRN: [facility]:[id number] ? date: 1950 ?Sex: F ?? Assigned Patient Location: CT ?? Current Patient Location: CT ?? Accession/Order Number: [id number] ?? Exam Date: 03/04/2025 ??13:52 ?Report Date: [...] D.O. ??03/04/2025 2:31 PM ? Dictation Location: RADIO-PC-22 ? Electronically authenticated by: [id number] ??Y ?? Date: 03/04/2025 ??14:31 ? Dictated By: ?Claude Bahena M.D. ? Signed By: ?03/04/25 1433 ? DD/ 1431 ? TD/TT: ? Silk Screen Frame Assembler: Procedure Note Radiology, Radiologist, MD - 03/04/2025 [place] [address] CT Scan Report Signed Patient: SHEY BOSS LMR#: [id number] : 1950cct:[id number] Age/Sex: 74 / FADM Date: 03/04/25 Loc: CT Attending Dr: Latrell Jack M.D. Ordering Physician: Latrell Jack M.D. Date of Service: 03/04/25 Procedure(s): CT lung screening low-dose Accession Number(s): [id number] cc: Latrell Jack M.D. The [place] [id number] Patient Name: SHEY BOSS MRN: [id number] date: 1950 Sex: F Assigned Patient Location: CT Current Patient Location: CT Accession/Order Number: [id number] Exam Date: 03/04/2025 13:52 Report Date: 03/04/2025 [...] Jr., D.O. 03/04/2025 2:31 PM Dictation Location: [place] [address] Electronically authenticated by: [id number] Y Date: 4:31 Dictated By: Claude Bahena M.D. Signed By:03/04/25 1433 DD/ 1431 TD/TT: Silk Screen Frame Assembler: Authorizing ProviderResult TypeResult StatusAbrazo [facility] Guero MDCLINISYNC IMAGING Final Result * Bilateral screening mammogram (02/27/2025 2:18 PM EDT) Narrative Authorizing ProviderResult TypeResult [facility] hospital Guero MDIMG BI PROCEDURES Final ResultPerforming OrganizationAddressCity/State/ZIP CodePhone Number [facility] [address] [place] [address], * MM TOMOSYNTHESIS SCREENING BI (02/27/2025 2:07 PM EDT)Anatomical Region LateralityModalityOtherSpecimen (Source)Anatomical Location / Laterality Collection Method / VolumeCollection TimeReceived Time02/27/2025 2:07 PM EDT Narrative 02/27/2025 2:07 PM EDT [facility] ?[address] ? [place] [address] ? Mammography Report ? Signed ? Patient: SHEY BOSS L ?MR#: [id number] ?? : 1950 ?Acct:[id number] ?? Age/Sex: 74 / F ?ADM Date: //25 ?? Loc: MAMMO ? Attending Dr: Latrell Jack M.D. ? Ordering Physician: Latrell Jack M.D. ?Results: ? Date of Service: 02/27/25 ?Follow Up: ? Procedure(s): MM tomosynthesis screening BI ?? Accession Number(s): [id number] ? cc: Latrell Jack M.D. ? Patient Name: ? SHEY BOSS ? MR#: [id number] ? : 1950 ? Exam Date: 02/27/2025 [...] at age 46. ? LOCATION: ? [facility] ? BREAST COMPOSITION: ? The breasts are [...] By: ?Pa Villa M.D. ? Signed By: ?02/27/ 1407 ? DD/ 1407 ? TD/TT: ? Silk Screen Frame Assembler: Procedure Note Radiology, Radiologist, MD - 02/27/2025 [place] [address] Mammography Report Signed Patient: SHEY BOSS LMR#: [id number] : 1950cct:[id number] Age/Sex: 74 / FADM Date: 02/27/25 Loc: MAMMO Attending Dr: Latrell Jack M.D. Ordering Physician: Latrell Jack M.D.Results: Date of Service: 02/27/25Follow Up: Procedure(s): MM tomosynthesis screening BI Accession Number(s): [id number] cc: Latrell Jack M.D. Patient Name: SHEY BOSS MR#: [id number] : 1950 Exam Date: 02/27/2025 Ordering Doctor: DR LATRELL JACK . RADIOLOGY REPORT PROCEDURE: MM TOMOSYNTHESIS SCREENING BI COMPARISON: MM TOMOSYNTHESIS SCREENING BI, 11/28/2023. MG MAMM YOWFVP1B [place] CAD, 11/24/2022. MG MAMM SCREEN 3D [place]D CAD, 11/11/2021. MG MAMM ORGHLJ6L [place] CAD, 11/05/2020. INDICATIONS: Screenng Calculator Name NCI Breast Cancer Risk Assessment Tool 5 Year Breast Cancer Risk 2.00% Lifetime Breast Cancer Risk 4.80% Personal Breast Cancer No Personal Ovarian Cancer No Treatments None Family Cancers Father with lung cancer at age 45. LOCATION: [facility] BREAST COMPOSITION: The breasts are almost [...] 14:07 Dictated By: Pa Villa M.D. Signed By:02/27/251406 DD/ 06 TD/TT: Silk Screen Frame Assembler: Authorizing ProviderResult TypeResult StatusMarc Naderer MDCLINISYNC IMAGING Final Result from Last [address] [place] [address] Care Teams Team MemberRelationshipSpecialtyStart DateEnd Date Latrell Jack MD [facility] - [facility] Latrell Jack MD [address] [place] [address] PCP - [facility]08/16/24 Siomara Fitzgerald DO [address] [place] [address] Referring GnzufhbcoMeyucjoax47/21/24
--- OUTSIDE RECORDS SUMMARY | 2025-05-19 09:50 | XMS_ITS | Clinical Summary ---
Author Organization [facility] Address [id number] [address] [place] [address] Care Team Providers Care Sales Account Specialist Name Role Phone Latrell Mckeon MD Primary Care Provider [phone] Allergies No known active allergies Medications MedicationSigDispense QuantityRefillsLast FilledStart DateEnd DateStatus zolpidem (AMBIEN) 10 mg tablet Take 10 mg by mouth daily.10/13/2020ctive famotidine (PEPCID) 40 mg tablet Take 40 mg by mouth 2 (two) times a day.11/08/2020ctive pantoprazole (PROTONIX) 40 mg EC tablet Take 40 mg by mouth daily.Active hzpaurxj-aacx-ER-calcium &mins (THERAGRAN-M) 9 mg iron-400 mcg tablet [...] Last Filed Vital Signs Vital SignReadingTime TakenCommentsBlood Zzjmtpps887/9806 12:37 PM EDT Gokal278712/09/2020 12:37 PM EUDMdqflwimbib15.3 ??C (97.3 ??F)12/09/2020 11:07 AM EDTRespiratory Rnao852912/09/2020 12:37 PM EDTOxygen Cqhrwzxqid93%12/09/2020 12:37 PM EDTInhaled Oxygen Concentration--Vuyvch957.9 kg (229 lb)12/09/2020 8:19 AM HPLTxftis314 cm (5' 3 )12/09/2020 8:19 AM EDTBody Mass Index40.57012/09/2020 8:19 AM EDT Plan of Treatment Health MaintenanceDue DateLast DoneCommentsDepression Mtaxynnbv67/15/1964Tobacco Oxszvpjfq97/15/1964Adult BMI Vuwknypin69/15/1970DTaP,Tdap and Td Vaccines (1 - Tdap)09/21/1970Zoster (Shingles) Vaccine (1 of 2)09/21/2001Fall Risk Screening 09/21/2016COVID-19 Vaccine ( season)/10/2020, 09/14/2020, 08/27/2020Influenza Nkzlvlv95/10/2020, 06/16/2020, 05/16/2019, Additional history existsRSV ( or age 60+ yrs) (1 - 1-dose 75+ series) 09/21/2026 Medical Devices Not on file Insurance Care Teams Team MemberRelationshipSpecialtyStart DateEnd Date Latrell Mckeon MD PCP - GeneralFamily Medicine11/09/20
--- OUTSIDE RECORDS SUMMARY | 2025-05-19 09:50 | XMS_ITS | Encounter Summary ---
Author Organization [facility] Address [address] [place] [address] Care Team Providers Care Head Of Product Name Role Phone Latrell Mckeon MD Primary Care Provider [phone] Diomedes Matute DO Unavailable [phone] Latrell Mckeon MD Unavailable Sugar Arenas RECORDS TECHNICIAN Unavailable [phone] Encounter Details DateTypeDepartmentCare Team (Latest Contact Info)Hkobiztfhwj33/06/2024Clinisync Result Encounter [facility] External Department Unsolicited Diomedes Matute DO Social History Tobacco UseTypesPacks/DayYears UsedDateSmoking Tobacco: FormerCigarettes1.270.7 07/10/1967 - 01/08/2012Smokeless Tobacco: NeverAlcohol UseStandard Drinks/Week CommentsYes4 (1 standard drink = 0.6 oz pure alcohol)Caffeine: 2-3 cups per day B1300 Health LiteracyAnswerDate RecordedHow often do you need to have someone help you when you read instructions, pamphlets, or other written material from your doctor or pharmacy?Rimxufqxh40/26/2024Social Connection and Isolation Panel AnswerDate RecordedIn a typical week, how many times do you talk on the phone with family, friends, or neighbors?More than three times a week02/02/2024How often do you get together with friends or relatives?Three times a week02/02/2024 How often do you attend jewish or mormon services?Patient ewuuwcva35/26/2024 Do you belong to any clubs or organizations such as jewish groups, unions, fraternal or athletic groups, or school groups?Patient /26/2024How often do you attend meetings of the clubs or organizations you belong to?Patient pcgwdmug86/26/2024re you , , , , never , or living with a partner?Never slllrgj5102/02/2024UDIT-CAnswerDate RecordedQ1: How often do you have a drink containing alcohol?Monthly or less03/03/2024Q2: How many drinks containing alcohol do you have on a typical day when you are drinking?3 or Q3: How often do you have six or more drinks on one occasion?Less than mwrjptz5103/03/2024Overall Financial Resource Strain (CARDIA) AnswerDate RecordedHow hard is it for you to pay for the very basics like food, housing, medical care, and heating?Patient vidifldd33/26/2024HQ-2AnswerDate RecordedPatient Health Questionnaire-2 Dpvxa548Fin[facility] [place] of Occupational Health - Occupational Stress QuestionnaireAnswerDate RecordedDo you feel stress - tense, restless, nervous, or anxious, or unable to sleep at night because yourmind is troubled all the time - these days?To some nnptkq6402/02/2024 Exercise Vital SignAnswerDate RecordedOn average, how many days per week do you engage in moderate to strenuous exercise (like a brisk walk)?Patient declined 02/02/2024On average, how many minutes do you engage in exercise at this level? Patient /26/2024Hunger Vital SignAnswerDate RecordedWithin the past 12 months, you worried that your food would run out before you got the money to buy more.Patient rjxcythj59/26/2024Within the past 12 months, the food you [...] homeless or living in a penitentiary (including now)?No02/02/2024CommentsUnknownSex and Gender InformationValueDate RecordedSex Assigned [...] 10:00 AM Jaz Miranda MAPatient Health Questionnaire-2 Wmlnd533 10:00 AM Jaz Miranda MA * QuestionAnswerDate [...] 10:00 AM Jaz Miranda MAPatient Health Questionnaire-9 Gisls541 10:00 AM Jaz Miranda MA documented as of this encounter Plan of Treatment DateTypeDepartmentCare Team (Latest Contact Info)Rpoycnzhzmt31/26/2025 3:30 PM ESTOffice Visit [facility] [address] [facility] [place] [address] Sugar Cruz S, AUD [address] [facility] [address] 06/09/2025 1:10 PM ESTOffice Visit [facility]IANNE Girard Otolaryngology [address] [place] [address] Layla Houston MD [address] [place] [address] documented as of this encounter Procedures Procedure NamePriorityDate/TimeAssociated DiagnosisCommentsMR HEAD/BRAIN WO CON 03/15/2024 12:12 PM EDT documented in this encounter Results * MR HEAD/BRAIN WO CON (03/15/2024 12:12 PM EDT)Anatomical RegionLaterality ModalityOtherSpecimen (Source)Anatomical Location / LateralityCollection Method / VolumeCollection TimeReceived Time03/15/2024 12:12 PM EDT Narrative 03/15/2024 12:15 PM EDT [facility] ?[address] ? [place] [address] ? Magnetic Resonance Report ? Signed ? Patient: KARYNSHEY HERNANDEZ L ?MR#: [id number] ?? : 1950 ?Acct:[id number] ?? Age/Sex: 73 / F ?ADM Date: 03/15/24 ?? Loc: MRI ? Attending Dr: Diomedes Matute D.O. ? Ordering Physician: Diomedes Matute D.O. ?? Date of Service: 03/15/24 ?? Procedure(s): MR head/brain wo con ?? Accession Number(s): [id number] ? cc: Diomedes Matute D.O.; Latrell Mckeon M.D. ? [facility] ? [address] ? [place] [address] ? Patient Name: ?? SHEY BOSS ? MRN: [facility]:[id number] ? date: 1950 ?Sex: F ?? Assigned Patient Location: MRI ?? Current Patient Location: MRI ?? Accession/Order Number: [id number] ?? Exam Date: 03/15/2024 ??09:50 ?Report Date: 03/15/2024 ??12:12 ? At the request of: ?? DIOMEDES ??JUJU ? Procedure: ??MR head/brain wo con ? EXAM: MR head/brain wo con ? HISTORY: Memory Loss R41.3 ? COMPARISON: None. ? TECHNIQUE: MRI of the brain was performed without contrast. ? FINDINGS: ? There is no restricted diffusion to suggest acute infarct. ? There is no midline shift, mass effect, or abnormal extraaxial fluid ?? collections. ? There is mild generalized cerebral and cerebellar atrophy. There are a few ?? nonspecific T2 bright foci in the supratentorial white matter, likely reflect ?? chronic microvascular ischemic changes. ? The major intracranial flow voids are visualized. The cerebellar tonsils are ?? normal in position. ? The orbits are unremarkable. The paranasal sinuses show no air-fluid level. ?? There is mild mucoperiosteal thickening of bilateral ethmoid air cells. The ?? mastoid air cells are clear. The calvarium and extracranial soft tissues are ?? unremarkable. ? MR/MR head/brain wo con ?? IMPRESSION: ? No acute intracranial abnormality. ? Mild chronic microvascular ischemic and involutional changes ? Electronically authenticated by: ARNOLD ??UNLU ?? Date: 03/15/2024 ??12:12 ? Dictated By: ?UNLU,ARNOLD M.D. ? Signed By: ?03/15/245 ? DD/ 1212 ? TD/TT: ? Sheeter Waxer Operator: Procedure Note Radiology, Radiologist, MD - 03/15/2024 The [place] [id number] Magnetic Resonance Report Signed Patient: SHEY BOSS LMR#: [id number] : 1950cct:[id number] Age/Sex: 73 / FADM Date: 03/15/24 Loc: MRI Attending Dr: Diomedes Matute D.O. Ordering Physician: Diomedes Matute D.O. Date of Service: 03/15/24 Procedure(s): MR head/brain wo con Accession Number(s): [id number] cc: Diomedes Matute D.O.; Latrell Mckeon M.D. The [address] [address] Patient Name: SHEY BOSS MRN: [facility]:[id number] date: 1950 Sex: F Assigned Patient Location: MRI Current Patient Location: MRI Accession/Order Number: [id number] Exam Date: 03/15/2024 09:50 Report Date: 03/15/2024 [...] M.D. Signed By:03/15/24 1215 DD/ 1212 TD/TT: Sheeter Waxer Operator: Authorizing ProviderResult TypeResult StatusNicole Juju DOCLINISYNC IMAGING Final Result documented in this encounter Visit Diagnoses Not on filedocumented in this encounter Care Teams Team MemberRelationshipSpecialtyStart DateEnd Date Latrell Mckeon MD PCP - GeneralFamily Medicine08/05/23 Latrell Mckeon MD [address] [place] [address] PCP - ACO Reach08/16/24 Diomedes Matute DO [address] [place] [address] Referring VmlcskbanHdrpizaml65/21/24 Sugar Arenas, FABIANO [address] [place] [address] Social WorkerFamily Medicinedocumented as of this encounter
--- OUTSIDE RECORDS SUMMARY | 2025-05-19 09:50 | XMS_ITS | Encounter Summary ---
Author Organization [facility] Address [address] [place] [address] Care Team Providers Care Experience Planning Strategist Name Role Phone Latrell Mckeon MD Primary Care Provider [phone] Siomara Fitzgerald DO Unavailable [phone] Latrell Mckeon MD Unavailable Sugar Arenas TREATER Unavailable [phone] Encounter Details DateTypeDepartmentCare Team (Latest Contact Info)Hmutfgrotbo86/14/2025Clinisync Result Encounter [facility] External Department Unsolicited Provider, Generic External Data Social History Tobacco UseTypesPacks/DayYears UsedDateSmoking Tobacco: FormerCigarettes1.270.7 07/10/1967 - 01/08/2012Smokeless Tobacco: NeverAlcohol UseStandard Drinks/Week CommentsYes4 (1 standard drink = 0.6 oz pure alcohol)Caffeine: 2-3 cups per day B1300 Health LiteracyAnswerDate RecordedHow often do you need to have someone help you when you read instructions, pamphlets, or other written material from your doctor or pharmacy?Epwxqflmu76/26/2024Social Connection and Isolation Panel AnswerDate RecordedIn a typical week, how many times do you talk on the phone with family, friends, or neighbors?More than three times a week02/02/2024How often do you get together with friends or relatives?Three times a week02/02/2024 How often do you attend episcopalian or evangelical services?Patient mobarnyp19/26/2024 Do you belong to any clubs or organizations such as episcopalian groups, unions, fraternal or athletic groups, or school groups?Patient uindvbuy28/26/2024How often do you attend meetings of the clubs or organizations you belong to?Patient cbzjazss35/26/2024re you , , , , never , or living with a partner?Never fspqyen8602/02/2024UDIT-CAnswerDate RecordedQ1: How often do you have a drink containing alcohol?Monthly or less03/03/2024Q2: How many drinks containing alcohol do you have on a typical day when you are drinking?3 or Q3: How often do you have six or more drinks on one occasion?Less than qfcfrex5803/03/2024Overall Financial Resource Strain (CARDIA) AnswerDate RecordedHow hard is it for you to pay for the very basics like food, housing, medical care, and heating?Patient bortkrne86/26/2024HQ-2AnswerDate RecordedPatient Health Questionnaire-2 Udbef305Fin[facility] [place] of Occupational Health - Occupational Stress QuestionnaireAnswerDate RecordedDo you feel stress - tense, restless, nervous, or anxious, or unable to sleep at night because yourmind is troubled all the time - these days?To some vmthyb5302/02/2024 Exercise Vital SignAnswerDate RecordedOn average, how many days per week do you engage in moderate to strenuous exercise (like a brisk walk)?Patient declined 02/02/2024On average, how many minutes do you engage in exercise at this level? Patient tyuyregb88/26/2024Hunger Vital SignAnswerDate RecordedWithin the past 12 months, you worried that your food would run out before you got the money to buy more.Patient ertvtgsk13/26/2024Within the past 12 months, the food you [...] or living in a long term (including now)?No02/02/2024CommentsUnknownSex and Gender InformationValueDate RecordedSex Assigned [...] 10:00 AM Jaz Miranda MAPatient Health Questionnaire-2 Ccmdx770 10:00 AM Jaz Miranda MA * QuestionAnswerDate [...] 10:00 AM Jaz Miranda MAPatient Health Questionnaire-9 Gilde518 10:00 AM Jaz Miranda MA documented as of this encounter Plan of Treatment DateTypeDepartmentCare Team (Latest Contact Info)Bdfwelqimdd42/26/2025 3:30 PM ESTOffice Visit [facility] [address] [place] [address] Sugar Cruz S, AUD [address] [place] [address] 06/09/2025 1:10 PM ESTOffice Visit MARIANNE Girard Otolaryngology [address] [facility] [address] [place] [address] Layla Houston MD [address] [facility] [address] [place] [address] documented as of this encounter Procedures Procedure NamePriorityDate/TimeAssociated DiagnosisCommentsXR CHEST 2V FRONTAL/LAT07/23/2024 1:58 PM EST [facility] CONFIRM BLOOD DBJIIlfbqhc37/14/2025 11:47 AM EST [facility] TYPE AND SCREEN,30 HXFHgwotsb20/14/2025 11:41 AM EST documented in this encounter Results * XR CHEST 2V FRONTAL/LAT (07/23/2024 1:58 PM EST)Anatomical RegionLaterality ModalityOtherSpecimen (Source)Anatomical Location / LateralityCollection Method / VolumeCollection TimeReceived Time07/23/2024 1:58 PM EST Narrative 07/24/2024 7:32 AM EST * * *Final Report* * * DATE OF EXAM: Jul 23 2024 ??1:58PM ?? AOX ?? 5291 ??- ??XR CHEST 2V FRONTAL/LAT ??/ PROCEDURE REASON: multiple diagnoses ? * * * * Physician Interpretation * * * * EXAMINATION: ??CHEST RADIOGRAPH (2 VIEW FRONTAL and LATERAL) CLINICAL HISTORY: Pre-op evaluation Chronic obstructive pulmonary disease, unspecified COPD type (HCC) MQ: ??XC2_6 EXAM DATE/TIME: ??07/23/2024 1:58 PM COMPARISON: ??None available RESULT: Lines, tubes, and devices: ??None. Lungs and pleura: ??The lungs appear clear of consolidation. ??There is bilateral bronchial wall thickening, consistent with chronic airways inflammation. ??No pleural effusion or pneumothorax is identified. Cardiomediastinal silhouette: ??The heart size and pulmonary vascular pattern are within normal limits. ??There are atherosclerotic calcifications in the aortic arch. ??There is a large hiatal hernia Bones and soft tissues: ??Unremarkable. IMPRESSION: Large hiatal hernia. Utility Pipe Layer: PSCB ?? Transcribe Date/Time: Jul 24 2024 ??7:28A Dictated by : JARVIS HUGO MD This examination was interpreted and the report reviewed and electronically signed by: JARVIS HUGO MD on Jul 24 2024 ??7:30AM ??EST [id number]^AGFA_IDC^SI^ACN Procedure Note Radiology, Radiologist, - 07/24/2024 * [...] soft tissues: Unremarkable. IMPRESSION: Large hiatal hernia. Utility Pipe Layer: KODY Transcribe Date/Time: Jul 24 2024 7:28A Dictated by : JARVIS HUGO MD This examination was interpreted and the report reviewed and electronically signed by: JARVIS HUGO MD on Jul 24 2024 7:30AM EST [id number]^AGFA_IDC^SI^ACN Authorizing ProviderResult TypeResult StatusGeneric External Data Provider CLINISYNC IMAGINGFinal Result * [facility] CONFIRM BLOOD TYPE (07/23/2024 11:47 AM EST)ComponentValueRef RangeTest MethodAnalysis TimePerformed AtPathologist SignatureABOBCCFRHPositiveCCF Specimen (Source)Anatomical Location / LateralityCollection Method / Volume Collection TimeReceived Time07/23/2024 11:47 AM EST07/23/2024 11:47 AM EST Narrative CLINISYNC - 07/23/2024 11:46 AM EST Specimen Type: BLOOD SPECIMEN Ordering Facility: [facility] ?Address: [address] [place] [address] MAIN BLOOD BANK CLIA [id number] [address] [place] [address] [place] Authorizing ProviderResult TypeResult StatusGeneric External Data Provider CLINISYNCFinal ResultPerforming OrganizationAddressCity/State/[facility] CodePhone Number CLINISYNC [facility] [address] [place] [address] * [facility] TYPE AND SCREEN,30 DAY (07/23/2024 11:41 AM EST)ComponentValueRef Range Test MethodAnalysis TimePerformed AtPathologist SignatureABOBCCFRHPositiveCCF ANTIBODY SCREENNegativeCCFSpecimen (Source)Anatomical Location / Laterality Collection Method / VolumeCollection TimeReceived Time07/23/2024 11:41 AM EST 07/23/2024 11:42 AM EST Narrative CLINISYNC - 07/23/2024 11:41 AM EST Specimen Type: BLOOD SPECIMEN Ordering Facility: [facility] ?Address: [address] [place] [address] MAIN BLOOD BANK CLIA [id number] [address] [place] [address] [facility] Authorizing ProviderResult TypeResult StatusGeneric External Data Provider CLINISYNCFinal ResultPerforming OrganizationAddressCity/State/ZIP CodePhone Number [facility] [address] [address] documented in this encounter Visit Diagnoses Not on filedocumented in this encounter Care Teams Team MemberRelationshipSpecialtyStart DateEnd Date Latrell Mckeon MD PCP - GeneralFamily Medicine08/05/23 Latrell Mckeon MD [address] [place] [address] PCP - ACO Reach08/16/24 Siomara Fitzgerald DO [address] [place], [place] [id number] Referring EoppfndtnOypgmteep93/21/24 Suagr Arenas, FABIANO [address] [place], [place] [address] Social WorkerFamily Medicinedocumented as of this encounter
--- OUTSIDE RECORDS SUMMARY | 2025-05-19 09:53 | XMS_ITS | CCD ---
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 Role Phone FREDY, DR CHAPARRO Attending [...] Care Provider GUERO, LATRELL Primary Care Physician [phone] Pa WEBB Referring Unavailable NILL, Pa Vivas [...] Referring Unavailable Yovanny OLIVO, Dafne Talal Unavailable [phone] Amilcar JOVEL Diomedes Unavailable Latrell Jack MD Primary Care Provider Yovanny OLIVO, Dafne T Unavailable Latrell Jack MD Unavailable Elmer Kohli Attending Unavailable Elmer Kohli Attending Unavailable Latrell Jack MD Primary Care Provider Julio OLIVO, Erik Admit Provider Julio OLIVO, Erik Attending Provider Tra Hobson MD Attending Provider Julio OLIVO, Erik Attending Provider Julio OLIVO, Erik Other Provider Diomedes Fitzgerald DO Attending Provider Daogberto DIP GUIDER STOVES, Sugar Unavailable LATRELL JACK Attending Unavailable SANDRA ARCOS Attending Unavailable LATRELL JACK Attending Unavailable LATRELL JACK Attending Unavailable DIOMEDES FITZGERALD Attending Unavailable LATRELL JACK Referring Unavailable DIOMEDES FITZGERALD Referring Unavailable MAO MORROW Attending Unavailable LATRELL JACK Attending Unavailable SANDRA ARCOS Attending Unavailable Dagoberto DIP GUIDER STOVES, Sugar Unavailable Latrell Jack MD Primary Care Provider [phone] Julio OLIVO, Erik Attending Provider Latrell Jack MD Attending Provider Latrell Jack MD Primary Care Provider Erik Kim MD Attending Provider [phone] Elmer Suh DO Attending Provider [phone] XAVIER BOYD Referring Unava ilable NADERER, LATRELL A Primary [...] ilable NADERER, LATRELL A Primary Care Unavailable Julio, Erik Admitting Unavailab le Naderer, Latrell Primary Care Unavailable Tra Hobson Attending Unavailable Erik Kim Attending Unavailab le Naderer, Latrell Primary Care Unavailable Julio, Erik Admitting Unavailab le Gishannon OLIVO, Andrius Benedict Attending Unavailable Giedraitis , Andrius Marichuy Attending Unavailable Giedraitis , Andrius Vytlisandra Attending Unavailable Giedraitis , Andrius Vytlisandra Attending Unavailable Giedraitis , Andrius Marichuy Attending Unavailable Gishannon OLIVO, Dinarius Benedict Attending Unavailable Latrell Jack MD Primary Care Provider Diomedes Fitzgerald DO Unavailable Latrell Jack MD Unavailable Latrell Jack MD Primary Care Provider Sandra Arcos APRN Attending Provider Allergies Allergy ClassificationReported Allergen(s)Allergy TypeDate of OnsetReaction(s) Facility (1 source)Amino AcidsDrug AllergyThe [facility] Medications Current Medications MedicationDrug Class(es)DatesSig (Normalized)Sig (Original)acetaminophen 500 mg oral tablet (16 sources)Start: 82-18-5815zupe 1 tablet by mouth every six hours as needed for pain and painacetaminophen (Tylenol) 500 MG tablet Take 500 mg by mouth every 6 (six) hours if needed for mild pain or moderate pain Take 2 tabs every 6 hours as needed for pain. 07/26/2024 Activeacetaminophen 325 mg / HYDROcodone bitartrate 5 mg oral tablet (2 sources)Opioid AgonistStart: 12-04-2024 End: 03-12-0881juht 1 tablet by mouth four times daily as needed for pain HYDROcodone-acetaminophen (Stella) 5-325 MG tablet Indications: Degenerative lumbar spinal stenosis Take 1 tablet by mouth 4 (four) times a day as needed for severe pain for up to 5 days 20 tablet 12/04/2024 12/09/2024 Activealbuterol 0.83 mg/ml inhalation solution (20 sources)beta2-Adrenergic AgonistStart: 31-30-9070jtscqqvca 0.083% Inh [place] 3 mL Refill(s) 0, 150 mL, 0 Refill(s), INHALE 3 ML(2.5 MG) BY NEBULIZER EVERY 4 HOURS NEEDED FOR SHORTNESS OF BREATH OR WHEEZING Start Date: 02/23/24 Status: Ordered Repeatnumber: 1Start: 01-94-5207zipi 2.5 mg by inhalation every four hours as neededAlbuterol Sulfate 2.5 mg /3 mL (0.083 %) solution for nebulization Active 2.5 MG INHALATION Every 4hours as needed April 09, 2025 12:00am Complies with drug therapyALBUTEROL INHALATION Inhale as instructed. ActiveamLODIPine 5 mg oral tablet (2 sources)Dihydropyridine Calcium Channel BlockerStart: 32-82-7223ydml 1 tablet by mouth once dailyAmlodipine (Norvasc) 5 mg tablet Active 5 MG PO Daily 30 5 April 29, 2025 12:00am Complies withdrug therapyaspirin 81 mg oral tablet (20 sources)Platelet Aggregation Inhibitor, Nonsteroidal Anti-inflammatory Drug Start: 02-66-0307oxjd 1 tablet by mouth once dailyAspirin 81 mg tablet Active 81 MG PO Daily February 03, 2025 12:00am Complies with drug therapyStart: 03-05-2021 aspirin 81 mg cap Take 81 mg by mouth. 03/05/2021 ActiveStart: 93-11-3291zlqf 1 tablet by mouth once dailyaspirin 81 mg Oral EC Tab 81 mg = 1 tab(s), Oral, Daily, Refills(s) 0, Prophylaxis Start Date: 03/05/21 Status: Ordered Repeat number: 1atorvastatin 40 mg oral tablet (20 sources)HMG-CoA Reductase InhibitorStart: 70-47-9835amjo 1 tablet by mouth once dailyAtorvastatin 40 mg tablet Active 40 MG PO Daily December 12, 2024 12:00am Complies with drug therapyCalcium (4 sources)Phosphate Binder, CalciumStart: 26-23-7773vmaa 1 tablet by mouth once dailyCalcium Calcium, 1 tab, Oral, Daily Start Date: 02/26/24 Status: Ordered Repeat number: 1Start: 07-25-9174vbil 1 tablet by mouth once dailyCalcium Calcium, 1 tab, Oral, Daily Start Date: 02/26/24 Status: OrderedStart: 02-26-2024 Calcium Calcium Start Date: 02/26/24 Status: Orderedcalcium carbonate 1500 mg oral tablet (20 sources)Start: 59-93-6323zzhf 1 tablet by mouth twice dailyCalcium Carbonate (Calcium 600) 600 mg calcium (1,500 mg) tablet Active 600 MG PO Twice daily April 09, 2025 12:00am Complies with drug therapycholecalciferol 0.025 mg oral tablet (20 sources)Vitamin DStart: 87-05-4436kbac 1 tablet by mouth once daily Cholecalciferol (Vitamin D3) 25 mcg (1,000 unit) tablet Active 25 MCG PO Daily April 09, 2025 12:00am Complies with drug therapytake 1 capsule by mouth once dailycholecalciferol (Vitamin D-3) 25 MCG (1000 UT) capsule Take 1 capsule by mouth 1 (one) time each day at the same time ActiveCholecalciferol, Vitamin D3, 25 mcg (1,000 unit) cap Take 1 capsule by mouth. Activeeszopiclone 2 mg oral tablet (9 sources)Start: 42-25-7482glbn 1 tablet by mouth once daily at bedtime Eszopiclone (Lunesta) 2 mg tablet Active 2 MG PO Daily at bedtime 30 30 2 February 03, 2025 12:00am Primary insomnia Primary insomnia Complies with drug therapy fluticasone propionate 0.05 mg/actuat metered dose nasal spray (20 sources)CorticosteroidStart: 85-91-7285Fricdxwbmmx Propionate 50 mcg/actuation spray,suspension Active 2 SPRAY INTRANASAL Daily December 12, 2024 12:00am Complies with drug therapyStart: 65-38-7965rabc 2 spray(s) nasal route once dailyfluticasone (Flonase) 50 MCG/ACT nasal spray Indications: Seasonal allergic rhinitis due to pollen USE 2 SPRAYS IN EACH NOSTRIL DAILY 48 mL 5 03/26/2024 ActiveStart: 27-75-8006wgooanqucys (FLONASE) 50 mcg/actuation nasal spray 2 Sprays once daily. 09/06/2023 ActiveStart: 63-14-7207Pbnrngc 0.05 mg/inh [place] 2 spray(s), Nasal, Daily, Refill(s) 0, Dry nasal passages Start Date: 09/06 Status: Ordered Repeat number: 1Start: 06-21-2023 End: 77-41-3123lnnc 2 spray(s) nasal route in the morningfluticasone (Flonase) 50 MCG/ACT nasal spray Administer 2 sprays into each nostril in the morning. 1 08/22/2022 03/26/2024 Discontinuedlosartan potassium 100 mg oral tablet (20 sources)Angiotensin 2 Receptor BlockerStart: 58-66-4346atak 1 tablet by mouth once dailyLosartan 100 mg tablet Active 100 MG PO Daily April 09, 2025 12:00am Complies with drug therapyStart: 10-26-5782nysb 1 tablet by mouth once dailylosartan (Cozaar) 100 MG tablet Indications: Essential hypertension, benign Take 1 tablet (100 mg) by mouth Daily 30 tablet 5 02/24/2025 ActiveStart: 06-13-2024 End: 86-86-4396vxit 1 tablet by mouth twice dailyLosartan 50 mg tablet Discontinued 50 MG PO Twice daily February 03, 2025 12:00am April 09, 2025 1: 27pmStart: 02-09-2024 End: 82-57-1944jice 1 tablet by mouth in the morninglosartan (Cozaar) 50 MG tablet Indications: Essential hypertension, benign (CMS/HCC) Take 1 tablet (50 mg) by mouth in the morning and 1 tablet (50 mg) before bedtime. 180 tablet 3 06/13/2024 ActiveStart: 27-65-6959uksm 1 tablet by mouth once dailylosartan 25 mg Tab 25 mg = 1 tab(s), Oral, Daily, Refills(s) 0, High blood pressure Start Date: 09/06/23 Status: Ordered Repeat number: 1take 1 tablet by mouth once daily losartan (Cozaar) 25 MG tablet Take 1 tablet by mouth 1 (one) time each day at the same time 0 Activemethocarbamol 750 mg oral tablet (20 sources)Muscle RelaxantStart: 39-25-5705jymu 1 tablet by mouth four times daily as needed for muscle spasmsMethocarbamol 750 mg tablet Active 750 MG PO Four times daily as needed for muscle spasms April 09, 2025 12:00am Complies with drug therapyStart: 88-47-0509yihl 1 tablet by mouth four times daily as needed for muscle spasmsmethocarbamol (Robaxin) 750 MG tablet Indications: Degenerative lumbar spinal stenosis TAKE 1 TABLET BY MOUTH 4 TIMES A DAY NEEDED FOR MUSCLE SPASMS 60 tablet 2 03/03/2025 ActiveStart: 02-03-2025 End: 05-44-8472Qxsxyhqcjqhns 500 mg tablet Discontinued 500 MG PO as needed February 03, 2025 12:00am April 09, 2025 1:31pmStart: 12-04-2024 End: 43-93-5868xslg 1 tablet by mouth four times daily as needed for pain Methocarbamol 750 mg tablet Discontinued 750 MG PO Four times daily as needed for pain December 12, 2024 12:00am February 03, 2025 3:55pmStart: 12-01-2024 End: 82-49-2523eytjnxsmxaxti (Robaxin) 500 MG tablet 12/01/2024 12/04/2024 Discontinued (Reorder)mirtazapine 15 mg oral tablet (16 sources)Start: 67-44-9561kzad 1 tablet by mouth once daily at bedtime Mirtazapine 15 mg tablet Active 15 MG PO Daily at bedtime February 03, 2025 12:00am Complies with drug therapyStart: 12-16-2024 End: 57-79-1836yfjl 1 tablet by mouth once daily at bedtimeMirtazapine 7.5 mg Tablet Discontinued 7.5 MG PO Daily at bedtime 30 30 0 December 16, 2024 12:00am February 03, 2025 3:55pmMultiple Vitamin (multivitamin) capsule (20 sources)take 1 capsule by mouth once dailyMultiple Vitamin (multivitamin) capsule Take 1 capsule by mouth Daily ActiveMultivitamin,Tx-Minerals (Multi- Vitamin Hp/Minerals) capsule (5 sources)Start: 89-75-2907jfsr 1 capsule by mouth once dailyMultivitamin,Tx- Minerals (Multi-Vitamin Hp/Minerals) capsule Active 1 CAP PO Daily April 09, 2025 12:00am Complies with drug therapyondansetron 4 mg oral tablet (1 source)Serotonin-3 Receptor AntagonistStart: 07-26-2024 End: 68-02-3315snvq 1 tablet by mouth every eight hours as neededondansetron (Zofran) 4 MG tablet Take 4 mg by mouth every 8 (eight) hours if needed 07/26/2024 08/02/2024 ActiveoxyCODONE hydrochloride 5 mg oral tablet (4 sources)Opioid AgonistStart: 07-26-2024 End: 01-43-5369xfem 1 tablet by mouth every six hours as needed for pain and painoxyCODONE (Roxicodone) 5 MG immediate release tablet Take 5 mg by mouth every 6 (six) hours if needed for moderate pain or severe pain 07/26/2024 08/27/2024 DiscontinuedpredniSONE 50 mg oral tablet (4 sources)Start: 12-04-2024 End: 03-90-9653tocl 1 tablet by mouth once dailypredniSONE (Deltasone) 50 MG tablet Indications: Degenerative lumbar spinal stenosis Take 1 tablet (50 mg) by mouth Daily for 6 days 6 tablet 12/04/2024 12/10/2024 ActiveStart: 05-15-2024 End: 42-27-5354wtuh 1 tablet by mouth once dailypredniSONE (Deltasone) 50 MG tablet Indications: Chronic obstructive pulmonary disease, unspecifiedCOPD type (CMS/HCC) Take 1 tablet (50 mg) by mouth Daily for 6 days 6 tablet 05/15/2024 05/21/2024 Activetiotropium 0.018 mg inhalation powder (20 sources)AnticholinergicStart: 16-21-3826ilnc 1 capsule by inhalation once dailyTiotropium [place] (Spiriva With Handihaler) 18 mcg capsule, w/inhalation device Active 1 CAP INHALATION Daily December 12, 2024 12:00am Complies with drug therapyStart: 44-50-0329orrw 1 capsule by inhalation in the morningSpiriva HandiHaler 18 MCG inhalation capsule Indications: Chronic obstructive pulmonary disease, unspecified COPD type (HCC) PLACE 1 CAPSULE (18 MCG) INTO INHALER AND INHALE IN THE MORNING 30 [id number] 10/29/2024 ActiveStart: 10-09-2023 End: 51-00-6581omxw 1 capsule by inhalation in the morningtiotropium (Spiriva HandiHaler) 18 MCG inhalation capsule Indications: Chronic obstructive pulmonary disease, unspecified COPD type (CMS/HCC) Place 1 capsule (18 mcg) into inhaler and inhale in the morning. 30 capsule 11 10/09/2023 10/29/2024 Discontinued Start: 41-34-7441sclt 1 capsule by inhalation once dailySpiriva HandiHaler 18 mcg inhalation capsule 18 mcg = 1 cap(s), Inhalation, Daily, Refills(s) 0, Miguelina rtness of breath or wheezing Start Date: 09/06/23 Status: OrderedStart: 98-27-1957cxkl 1 capsule by inhalation in the morningSpiriva HandiHaler [address] 1 capsule into inhaler and inhale in the morning. 0 05/23/2023 Activetiotropium bromide (SPIRIVA RESPIMAT INHALATION) Inhale as instructed. ActiveTiotropium [place] (Spiriva With Handihaler) 18 mcg capsule, w/inhalation device (1 source)Start: 51-95-5462tbho 1 capsule by inhalation once dailyTiotropium [place] (Spiriva With Handihaler) 18 mcg capsule, w/inhalation device Active 1 CAP INHALATION Daily December 12, 2024 12:00amTirzepatide (Weight Loss) (2 sources)Start: 09-80-8886Rhuhvjakpud (Weight Loss) (Zepbound) 2.5 mg/0.5 mL pen injector Active 2.5 MG SUBCUT every week 2 1Oct2024 12:00am for 4 weeks Complies with drug therapyVitamin D3 1000 intl units (25 mcg) Tab (5 sources)Start: 45-97-1890qcmz 1 tablet by mouth once dailyVitamin D3 1000 intl units (25 mcg) Tab 25 mcg = 1 tab(s), Oral, Daily, Refills(s) 0, Prophylaxis Start Date: 09/06/23 Status: Ordered Repeat number: 1Start: 78-98-3072hzfr 1 tablet by mouth once dailyVitamin D3 1000 intl units (25 mcg) Tab 25 mcg = 1 tab(s), Oral, Daily, Refills(s) 0, Prophylaxis Start Date: 09/06/23 Status: OrderedVitamin E (20 sources)Start: 55-57-6599pgaahch E Oral, Daily, Refills(s) 0, Prophylaxis Start Date: 02/26/24 Status: Ordered Repeat number:1Start: 54-98-0276ulptcmc E Oral, Daily, Refills(s) 0, Prophylaxis Start Date: 02/26/24 Status: OrderedStart: 21-78-3799aegixzd E Oral, Refills(s) 0 Start Date: 02/26/24 Status: Orderedtake 1 capsule by mouth once dailyalpha tocopherol (Vitamin E) 400 units capsule Take 1 capsule by mouth 1 (one) time each day at thesama time ActiveVitamin E, dl, acetate, (VITAMIN E) 400 unit capsule Take 1 capsule by mouth. ActiveVitamin E Mixed 400 unit tablet (5 sources)Start: 21-94-9976bwey 1 tablet by mouth once dailyStart: 04-09-2025 take 1 tablet by mouth once dailyVitamin E Mixed 400 unit tablet Active 400 UNIT PO Daily April 09, 2025 12:00am Complies with drug therapyzonisamide 50 mg oral capsule (20 sources)Anti-epileptic AgentStart: 56-61-1656yteb 1 capsule by mouth once dailyZonisamide 50 mg capsule Active 100 MG PO Daily April 09, 2025 1:36pm Complies with drug therapyStart: 12-12-2024 End: 17-63-3105dvdg 1 capsule by mouth twice dailyZonisamide 50 mg capsule Discontinued 50 MG PO Twice daily December 12, 2024 12:00am April 0951:42pm Start: 79-01-7007hijg 2 capsules by mouth once dailyzonisamide (Zonegran) 50 MG capsule Take 100 mg by mouth Daily 08/07/2024 Active Completed/Discontinued Medications MedicationDrug Class(es)DatesSig (Normalized)Sig (Original)baclofen 10 mg oral tablet (19 sources)gamma-Aminobutyric Acid-ergic Agonist End: 12-43-8268roaj 5 mg by mouth in the morningbaclofen (Lioresal) 10 MG tablet Take 5 mg by mouth in the morning and 5 mg before bedtime. 02/24/2025 Discontinueddocusate sodium 100 mg oral capsule (20 sources)Start: 04-09-2025 End: 39-43-9185byab 1 capsule by mouth twice daily as neededDocusate Sodium 100 mg capsule Discontinued 100 MG PO Twice daily as needed April 09, 2025 12:00a m April 10, 2025 11:47amStart: 83-57-3847Vbtyecmq Sodium (DSS) 100 MG capsule Take 100 mg by mouth every 12 (twelve) hours if needed 07/26/2024 ActiveStart: 87-51-8321lqnb 1 capsule by mouth every twelve hours as neededdocusate sodium (COLACE) 100 mg capsule Take 1 capsule by mouth two times a day as needed for constipation. 07/26/2024 Activedonepezil hydrochloride 10 mg oral tablet (20 sources)Start: 05-30-2024 End: 99-42-2718gcvb 1 tablet by mouth at bedtimeDonepezil 10 mg tablet Discontinued 10 MG PO Bedtime December 12, 2024 12:00am April 23, 2025 9:36am Start: 02-23-2024 End: 59-83-0756fpkhxxgnn 5 mg Tab 30 EA, 0 Refill(s), TAKE 1 TABLET BY MOUTH AT BEDTIME, Refills(s) 0 Start Date: 02/23/24 Status: Ordered Repeat number: 1 famotidine 40 mg oral tablet (20 sources)Histamine-2 Receptor AntagonistStart: 02-03-2025 End: 30-35-7173lsck 1 tablet by mouth once dailyFamotidine 40 mg tablet Discontinued 40 MG PO Daily February 03, 2025 12:00am April 09, 2025 1:42pm Start: 78-52-5576tjkh 1 tablet by mouth twice dailyFamotidine 40 mg tablet Active 40 MG PO Twice daily April 09, 2025 1:27pm Complies with drug therapy Start: 48-43-9527baku 1 tablet by mouth once daily at bedtimefamotidine 40 mg Tab 40 mg = 1 tab(s), Oral, Once a day (at bedtime), Refills(s) 0, Control of stomach acid Start Date: 03/03/21 Status: Ordered Repeat number: 1One A Day Women's Complete (5 sources)Start: 90-35-8237Ofp A Day Women's Complete Oral, Daily, Refill(s) 0, Prophylaxis Start Date: 03/03/21 Status: Ordered Repeat number: 1Start: 58-77-0259Uit A Day Women's Complete Oral, Daily, Refill(s) 0, Prophylaxis Start Date: 03/03/21 Status: Orderedpantoprazole 40 mg delayed release oral tablet (20 sources)Proton Pump InhibitorStart: 03-03-2021 End: 40-62-4018rxld 1 tablet by mouth once dailyPantoprazole 40 mg tablet,delayed release (DR/EC) Discontinued 40 MG PO Daily February 03, 2025 12:00am April 29, 2025 1:22pmzolpidem tartrate 10 mg oral tablet (20 sources)gamma-Aminobutyric Acid-ergic AgonistStart: 07-31-2024 End: 66-25-3049hwtk 1 tablet by mouth at bedtime as needed for sleepZolpidem 10 mg tablet Discontinued 10 MG PO Bedtime as needed for sleep December 12, 2024 12:00am April 10, 2025 11:48amStart: 03-03-2021 End: 26-83-3325fkee 1 tablet by mouth once daily at bedtime as needed for sleep zolpidem 12.5 mg oral ER Tab 12.5 mg = 1 tab(s), Oral, Once a day (at bedtime), PRN for sleep, Refills(s) 0 Start Date: 03/03/21 Status: Ordered Repeat number: 1 Problems Active Problems Problem ClassificationProblemDateDocumented DateEpisodic/ChronicAcute cerebrovascular disease (20 sources)Cerebrovascular accident; Translations: [Cerebral infarction, unspecified]Onset: 910321-28-8132CssiypdClexqck disorders (16 sources)Generalized anxiety disorder; Translations: [Generalized anxiety disorder]83-62-0195GazykuaSqvioaz obstructive pulmonary disease and bronchiectasis (20 sources)Chronic obstructive pulmonary disease, unspecified; Translations: [Chronic obstructive pulmonary disease with (acute) exacerbation]Onset: 683601-14-0834UitwfhrUnlwutpg, dementia, and amnestic and other cognitive disorders (20 sources)Senile dementia; Translations: [Unspecified dementia without behavioral disturbance]Onset: 366007-48-8648TohagqlSvcuwkex mellitus without complication (20 sources)Prediabetes; Translations: [Prediabetes]Onset: EpisodicDisorders of lipid metabolism (20 sources)Hyperlipidemia, unspecified; Translations: [Dyslipidemia]Onset: 236893-02-9842CxkbqtpDnkmdvjlau disorders (18 sources)Gastroesophageal reflux disease; Translations: [Gastroesophageal reflux disease without esophagitis]Onset: 644487-47-5943ZfifsmsMjdczvtlc hypertension (20 sources)Essential (primary) hypertension; Translations: [Benign essential hypertension]Onset: 09-16-2021 Resolved: 211436-38-3436DugriazPbhlw and electrolyte disorders (1 source)Disorder of electrolytes; Translations: [Other disorders of electrolyte and fluid balance, not elsewhere classified]Onset: 07-26-2024 92-33-2580YohkmigkHfpuiitmutcdz mental health disorders (20 sources)Psychophysiologic insomnia; Translations: [Primary insomnia]Onset: 821505-58-5973TxcvjfcUzux disorders (19 sources)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 features; Translations: [Major depressive disorder, recurrent severe without psychotic features]Onset: 567639-64-6381IrqlncfIfxeuyblmmeity (20 sources)Primary gonarthrosis, bilateral; Translations: [Bilateral primary osteoarthritis of knee]Onset: 072264-61-6716AmgmljwKshrv aftercare (1 source)Postoperative visit; Translations: [Encounter for other specified surgical aftercare]59-94-0204TvzcymlhNhuvn bone disease and musculoskeletal deformities (20 sources)Osteopenia; Translations: [Other specified disorders of bone density and structure, other site]Onset: 461299-17-3267PbadeowvYtkcq ear and sense organ disorders (10 sources)Tinnitus; Translations: [Tinnitus, unspecified ear]04-10-2025 EpisodicOther gastrointestinal disorders (20 sources)Dysphagia; Translations: [Dysphagia, unspecified]Onset: 02-09-2024 EpisodicOther hereditary and degenerative nervous system conditions (2 sources)Impaired cognition; Translations: [Mild cognitive impairment, so stated]86-62-5433VgjcslgQannd lower respiratory disease (2 sources)Dyspnea on exertion; Translations: [Other forms of dyspnea]07-23-2024 EpisodicOther nervous system disorders (6 sources)Chronic pain; Translations: [Other chronic pain]28-87-4599Onkckyx Other nervous system disorders (1 source)Other chronic pain; Translations: [Chronic back pain, unspecified back location, unspecified back pain laterality]Onset: 89-38-5165AlqrjseKqpqw nervous system disorders (4 sources)Word finding difficulty ; Translations: [Other speech disturbances] 08-72-0601UueoyzchMxvkw nervous system disorders (1 source)Acute postoperative pain; Translations: [Other acute postprocedural pain]Onset: 717403-01-4267NoirndzmNjtau nervous system disorders (10 sources)Pseudodementia; Translations: [Other symptoms and signs involving cognitive functions and awareness]31-32-6721OjargqiaIefyk non-traumatic joint disorders (5 sources)Disorder of shoulder; Translations: [Other specified joint disorders, left shoulder]19-97-2249JtirjhaoTnhad nutritional; endocrine; and metabolic disorders (1 source)Obesity, unspecified; Translations: [OBESITY UNSPECIFIED]Onset: 56-30-6964MavabisVhetq nutritional; endocrine; and metabolic disorders (1 source)Morbid (severe) obesity due to excess calories; Translations: [MORBID SEVERE OBES D/T EXCESS JULIO C]Onset: 99-51-6074AatngcuUmxtl nutritional; endocrine; and metabolic disorders (1 source)Body mass index (BMI) 38.0-38.9, adult; Translations: [BODY MASS INDEX BMI 38.0-38.9 ADULT]Onset: 84-54-2465OtuvnasWwkzs nutritional; endocrine; and metabolic disorders (2 sources)Body mass index 40+ - severely obese; Translations: [Body mass index (BMI) 40.0-44.9, adult]37-27-5037GzyqnxtKsehq nutritional; endocrine; and metabolic disorders (8 sources)Body mass index 30+ - obesity; Translations: [Body mass index (BMI) 39.0-39.9, adult]Onset: 07-23-2024 Resolved: 600493-69-5461HfcktsbPftly nutritional; endocrine; and metabolic disorders (20 sources)Severe obesity; Translations: [Class 2 severe obesity due to excess calories with serious comorbidity and body mass index (BMI) of 38.0 to 38.9 in adult ([facility])]Onset: 03-03-2024 Resolved: 856843-10-2848EdpxhinVseqv nutritional; endocrine; and metabolic disorders (3 sources)Obesity; Translations: [Obesity, unspecified]Onset: 07-23-2024 65-31-6470PoeasqnXerfu nutritional; endocrine; and metabolic disorders (1 source)Obese class II; Translations: [Obesity, Class II, BMI 35-39.9]Onset: 980649-53-6983KjdstkkDipgg upper respiratory disease (20 sources)Allergic rhinitis due to pollen; Translations: [Allergic rhinitis due to pollen]Onset: 037568-59-4986GwswgxsDhxhu upper respiratory disease (5 sources)Seasonal allergic ghjbhmtu31-42-0749XwteymdTfuqkj media and related conditions (10 sources)Dysfunction of left eustachian tube; Translations: [Unspecified Eustachian tube disorder, left ear]15-78-1624AbohhgyyMyaevdhu codes; unclassified (2 sources)Obstructive sleep apnea (adult) (pediatric); Translations: [OBSTRUCTIVE SLEEP APNEA]Onset: 65-67-2654OnuuzypSjttqzma codes; unclassified (20 sources)Obstructive sleep apnea syndrome; Translations: [Obstructive sleep apnea (adult) (pediatric)]Onset: 977130-22-3850XnkiqxeAwuvdwil codes; unclassified (10 sources)Sleep apnea; Translations: [Sleep apnea, unspecified]03-03-2021 ChronicResidual codes; unclassified (6 sources)Insomnia; Translations: [Other insomnia]11-53-5942McmylqePfhvekae codes; unclassified (20 sources)Edema of lower extremity; Translations: [Localized edema]Onset: 601783-82-5143HwnpgyxxGpimrgwr codes; unclassified (5 sources)Ocskivsx59-52-3482WpkvjxlyAlryuaas codes; unclassified (20 sources)Amnesia; Translations: [Other amnesia]Onset: EpisodicResidual codes; unclassified (1 source)History of hernia repair; Translations: [Other specified postprocedural states]Onset: 853349-64-8290UllzteflBxoarysck and history of mental health and substance abuse codes (20 sources)Personal history of nicotine dependence; Translations: [Ex-smoker] Onset: 16-68-4840PockmcqtLomibykpfey; intervertebral disc disorders; other back problems (20 sources)Lumbago with sciatica, left side; Translations: [Chronic back pain ] Onset: 871705-41-3182LiiotuhfFekohjq and intentional self-inflicted injury (1 source)Suicidal thoughts; Translations: [Suicidal ideations]Onset: 12-12-2024 EpisodicTransient cerebral ischemia (20 sources)Transient cerebral ischemia; Translations: [Transient cerebral ischemic attack, unspecified]Onset: 987639-10-0482BffvhckUxskxhpsiaor (2 sources)COUGH, UNSPECIFIED; Translations: [COUGH, UNSPECIFIED]Onset: 96-99-1953Mbswcdvlyldv (1 source)CONTACT W/AND (SUSP) EXPOS COVID-19; Translations: [CONTACT W/AND (SUSP) EXPOS COVID-19]Onset: 27-15-6906Bcagzghvunfx (5 sources)Patient encounter -15-8330Uqyijistbnon (2 sources)Call if you have any medical concerns.Unclassified (1 source)manager of finance will call you tomorrow, if you miss this call please call back as soon as possible.Unclassified (9 sources)M19.012 - Primary osteoarthritis, left shoulderUnclassified (4 sources)H69.92 - Unspecified Eustachian tube disorder, left ear,H93.12 - Tinnitus, left earViral infection (1 source)COVID-19; Translations: [COVID-19]Onset: 02-23-2022 Past or Other Problems Problem ClassificationProblemDateDocumented DateEpisodic/ChronicAbdominal hernia (20 sources)Diaphragmatic hernia without obstruction or gangrene; Translations: [Gastroesophageal reflux disease with hiatal hernia]Onset: 09-16-2021 Resolved: 865693-00-5775KnybkvgnFzcfoiarbieu of device; implant or graft (2 sources)Pain due to internal orthopedic prosthetic devices, implants and grafts, initial encounter; Translations: [Other specified complication of internal orthopedic prosthetic devices, implants and grafts,initial encounter] Onset: 05-01-7073RzqgpxupScsjziak of lower limb (5 sources)Other fracture of upper and lower end of right fibula, subsequent encounter for closed fracture with routine healing; Translations: [Torus fracture of lower end of right fibula, subsequent encounter for fracture with routine healing]Onset: 21-68-2173CitfgngfCsqnqktuleqro symptoms and ill-defined conditions (4 sources)Personal history of urinary (tract) infections; Translations: [History of urinary tract infection]Onset: 516981-67-5398Oaotpqes Immunizations and screening for infectious disease (3 sources)Contact with or exposure to other viral diseases; Translations: [Contact with and (suspected) exposure to covid-19]Onset: 640093-33-4038 EpisodicMood disorders (13 sources)Mood disordersOnset: Other aftercare (1 source)Other exterminator termite (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 therapy; Translations: [OTH ASSISTED CURRENT DRUG THERAPY]Onset: 19-11-3145AxjxfelvOvntz aftercare (1 source)MCFP (current) use of aspirin; Translations: [FAITH DOCTOR CURRENT USE OF ASPIRIN]Onset: 29-86-7265CvyddqasAkjkk aftercare (8 sources)Patient encounter status; Translations: [Other alf (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 therapy]Onset: 948658-57-1138JqrjrhhcCpkkl aftercare (20 sources)Long-term current use of drug therapy; Translations: [Other alf (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 therapy]Onset: 727756-49-9545WlhfpiliWwvjs aftercare (1 source)Encounter for other specified surgical aftercare; Translations: [Postoperative visit]Onset: 27-79-0906DsjxtfueYydgw bone disease and musculoskeletal deformities (1 source)Other specified disorders of bone density and structure, other site; Translations: [OTH D/O BONE DEN STRUCT OTH SITE]Onset: 25-09-5285WgvmpnktJxfug bone disease and musculoskeletal deformities (3 sources)Disorder of bone; Translations: [Other specified disorders of bone density and structure, other site]Onset: 656461-61-7139JznytnhnDbxrz circulatory disease (1 source)Personal history of transient ischemic attack (TIA), and cerebral infarction without residual deficits; Translations: [PERS HX TIA AND CI NO RESID DEFICIT]Onset: 48-01-4695IkijjxoyNqvmq lower respiratory disease (3 sources)Dyspnea, unspecified; Translations: [DYSPNEA UNSPECIFIED]Onset: 81-34-2774LzutaonfSnwvd lower respiratory disease (1 source)Shortness of breath; Translations: [SHORTNESS OF BREATH]Onset: 60-95-3011UfteefoiHvfnu lower respiratory disease (3 sources)Cough; Translations: [Cough, unspecified]Onset: EpisodicOther lower respiratory disease (6 sources)Dyspnea; Translations: [Dyspnea, unspecified]Onset: 11-02-2021 65-70-0348NceaxgbkIldur lower respiratory disease (1 source)Other forms of dyspnea; Translations: [CHENEY (dyspnea on exertion)] Onset: 84-67-1431GebzrdikGerco nervous system disorders (1 source)Other acute postprocedural pain; Translations: [Acute postoperative pain]Onset: 61-74-0600XulhyfdeZxbjc non-traumatic joint disorders (1 source)Pain in right ankle and joints of right foot; Translations: [PAIN IN RIGHT ANKLE]Onset: 61-50-8604XcmbnrytJzdkj non-traumatic joint disorders (3 sources)Arthralgia of the ankle and/or foot; Translations: [Pain in right ankle and joints of right foot]Onset: 325758-99-9732TzwdqhvsDckfk nutritional; endocrine; and metabolic disorders (20 sources)Morbid obesity; Translations: [Morbid (severe) obesity due to excess calories]Onset: 08-11-2023 Resolved: 409519-25-4889FzapdbpKjtxj nutritional; endocrine; and metabolic disorders (12 sources)Obesity caused by energy imbalance; Translations: [Other obesity due to excess calories]Onset: 09-16-2021 Resolved: 000920-41-5919NozexeeJupfa screening for suspected conditions (not mental disorders or infectious disease) (20 sources)Encounter for screening mammogram for malignant neoplasm of breast; Translations: [Patient encounter status]Onset: 73-92-8163CnxlkshwOakccwlg codes; unclassified (20 sources)Hypersomnia; Translations: [Hypersomnia, unspecified]Onset: 03-03-2024 Resolved: 886735-66-9719IzkoaevVzhwsihj codes; unclassified (1 source)Family history of malignant neoplasm of trachea, bronchus and lung; Translations: [FAM HX MALIG NEOPLSM TRACH BRON LNG]Onset: 33-46-8413Zixvwwtu Residual codes; unclassified (1 source)Asymptomatic menopausal state; Translations: [ASYMPTOMATIC MENOPAUSAL STATE]Onset: 36-41-7735MhogeztyDwryxayp codes; unclassified (3 sources)Menopause present; Translations: [Asymptomatic menopausal state] Onset: 510900-68-7534IvnnhcrjJmxzpvwb codes; unclassified (1 source)Other amnesia; Translations: [Memory loss]Onset: 31-10-0877Bomgxrie Unclassified (1 source)COUGH, UNSPECIFIED; Translations: [COUGH, UNSPECIFIED]Onset: 02-22-2022 Results Test NameValueInterpretationReference RangeFacilityCNOVon 60-97-9113ZDTBWydwai Visit (GENSMN) SHEY OBRIEN ([id number]) 1950 F Date Time Provider Department 04/23/25 [...] Katarzyna Snyder APRN.CNP 04/23/2025 12:10 PM Signed [facility] Clinic Date: April [...] hernia recurrence; discussed potentia (more content not included)...[facility]Gal[facility] LUNG SCREENING LOW DOSEon 76-[place] [address] [place] Scan Report Signed Patient: SHEY OBRIEN MR#: [id number] : 1950 Acct:[id number] Age/Sex: 74 / F ADM Date: 03/04/25 Loc: CT Attending Dr: Latrell Jack M.D. Ordering Physician: Latrell Jack M.D. Date of Service: 03/04/25 Procedure(s): CT lung screening low-dose Accession Number(s): [id number] cc: Latrell Jack M.D. [place] [id number] Patient Name: SHEY OBRIEN MRN: [id number] date: 1950 Sex: F Assigned Patient Location: CT Current Patient Location: CT Accession/Order Number: [id number] Exam Date: 03/04/2025 13:52 Report Date: 03/04/2025 [...] Jr., D.O. 03/04/2025 2:31 PM Dictation Location: [place] [address] Electronically authenticated by: [id number] Y Date: 03/04/2025 14:31 Dictated By: Claude Bahena M.D. Signed By: 03/04/25 1433 DD/ 1431 TD/TT: Bridge Worker:TBHRadiology, Radiologist, - 03/04/2025 [place] [address] CT Scan Report Signed Patient: SHEY OBRIEN MR#: [id number] : 1950 Acct:[id number] Age/Sex: 74 / F ADM Date: 03/04/25 Loc: CT Attending Dr: Latrell Jack M.D. Ordering Physician: Latrell Jack M.D. Date of Service: 03/04/25 Procedure(s): CT lung screening low-dose Accession Number(s): [id number] cc: Latrell Jack M.D. The [address] [address] Patient Name: SHEY OBRIEN MRN: [facility]:[id number] date: 1950 Sex: F Assigned Patient Location: CT Current Patient Location: CT Accession/Order Number: [id number] Exam Date: 03/04/2025 13:52 Report Date: 03/04/2025 [...] Jr., D.O. 03/04/2025 2:31 PM Dictation Location: [place] [address] Electronically authenticated by: [id number] Y Date: 03/04/2025 14:31 Dictated By: Claude Bahena M.D. Signed By: 03/04/25 1433 DD/ 1431 TD/TT: Bridge Worker: [facility] HealthcareRadiology Study observation (narrative)N[facility]S HealthcareCT LUNG SCREENING LOW DOSEOrdered By: Radiologist Radiology on 46-31-1743Z[facility] Work Phone: mm TOMOSYNTHESIS SCREENING BIon 79-17-2205ZidMetam[place], [place] [address] Mammography Report Signed Patient: SHEY OBRIEN MR#: [id number] : 1950 Acct:[id number] Age/Sex: 74 / F ADM Date: 02/27/25 Loc: MAMMO Attending Dr: Latrell Jack M.D. Ordering Physician: Latrell Jack M.D. Results: Date of Service: 02/27/25 Follow Up: Procedure(s): MM tomosynthesis screening BI Accession Number(s): [id number] cc: Latrell Jack M.D. Patient Name: SHEY OBRIEN MR#: [id number] : 1950 Exam Date: 02/27/2025 Ordering Doctor: DR LATRELL JACK . RADIOLOGY REPORT PROCEDURE: MM TOMOSYNTHESIS SCREENING BI COMPARISON: MM TOMOSYNTHESIS SCREENING BI, 11/28/2023. MG MAMM SCREEN 3D RONLAD CAD, 11/24/2022. MG MAMM SCREEN 3D RONALD CAD, 11/11/2021. MG MAMM SCREEN 3D RONALD CAD, 11/05/2020. INDICATIONS: Screenng Calculator Name NCI Breast Cancer Risk Assessment Tool 5 Year Breast Cancer Risk 2.00% Lifetime Breast Cancer Risk 4.80% Personal Breast Cancer No Personal Ovarian Cancer No Treatments None Family Cancers Father with lung cancer at age 45. LOCATION: [facility] BREAST COMPOSITION: The breasts are almost [...] Signed By: 02/27/25 1407 DD/ 140 TD/TT: Bridge Worker:TBHRadiology, RadiologistMD - 02/27/2025 [place] [address] Mammography Report Signed Patient: SHEY OBRIEN MR#: [id number] : 1950 Acct:[id number] Age/Sex: 74 / F ADM Date: 02/27/25 Loc: MAMMO Attending Dr: Latrell Jack M.D. Ordering Physician: Latrell Jack M.D. Results: Date of Service: 02/27/25 Follow Up: Procedure(s): MM tomosynthesis screening BI Accession Number(s): [id number] cc: Latrell Jack M.D. Patient Name: SHEY OBRIEN MR#: [id number] : 1950 Exam Date: 02/27/2025 Ordering Doctor: [...] lung cancer at age 46. LOCATION: [facility] BREAST COMPOSITION: The breasts are almost [...] Signed By: 02/27/25 1407 DD/ 06 TD/TT: Bridge Worker: [facility] HealthcareRadiology Study observation (narrative)[facility] TOMOSYNTHESIS SCREENING BIOrdered By: Radiologist Radiology on 85-40-7487BBJYResearch Medical Center Work Phone: c Urineon 22-88-9417Kecrixez identified Cx Nom (U) Microbiology PROCEDURE: Urine [...] Locations R1: This test was performed at: [facility], [address] [place] [address], [address]- , , YmweniRydojnACMC Healthcare SystemComment on above:Performed By: #### [id number] #### [facility] [address] [place] [address] 25[address]Hlyurcybxbo [Mass/volume] in Serum or PlasmaOrdered By: Erik Kim on 34-70-5386Lsmgkjrtxzk [Mass/Vol]Cholesterol [Mass/volume] in Serum or Qpujpz842-123ApvkawzqiTrinity Health System West CampusComment on above:Chol less than 200 mg/dl low riskChol 201-239 mg/dl borderline riskChol 240 mg/dl and greater high riskCholesterol [Mass/Vol]149 mg/dFLlpvgz223-182 [facility] CampusComment on above:Chol less than 200 mg/dl low riskChol 201-239 mg/dl borderline riskChol 240 mg/dl and greater high riskResult Comment: Chol less than 200 mg/dl low risk Chol 201-239 mg/dl borderline risk Chol 240 mg/dl and greater high riskPerformed By: #### TSH3 wRFLX, LIPID, [id number] #### [facility] [address] [place] [address] USACholesterol in HDL [Mass/volume] in Serum or PlasmaOrdered By: Erik Kim on 73-68-6994Dfmishfgnbw in HDL [Mass/Vol]Serum or plasma high density lipoprotein (HDL) cholesterol huloudzujid44-72Ujjjyqrsr21 Fisher StreetComment on above:HDL CHOL ATP-III CLASSIFICATION Cardiovascular RiskHDL > or equal to 60 mg/dL LOWHDL < 40 mg/dL HIGHCholesterol in HDL [Mass/Vol]42 mg/zKEkfqjg16-11IpctqfblbTrinity Health System West CampusComment on above:HDL CHOL ATP-III CLASSIFICATION Cardiovascular RiskHDL > or equal to 60 mg/dL LOWHDL < 40 mg/dL HIGHResult Comment: HDL CHOL ATP-III CLASSIFICATION Cardiovascular Risk HDL > or equal to 60 mg/dL LOW HDL < 40 mg/dL HIGHPerformed By: #### TSH3 wRFLX, LIPID, [id number] #### [facility] [address] [place] [address] USACholesterol in LDL Calc [Mass/Vol]Ordered By: Erik Kim on 92-50-4046Izmgdwphuih in LDL [Mass/Vol]Cholesterol in LDL [Mass/volume] in Serum or Plasma by calculation0[facility] West CampusComment on above:LDL ATP III CLASSIFICATIONLDL less than 100 mg/dL OptimalLDL 100-129 mg/dL Near or above mskwigjSJD697-838 mg/dL Borderline highLDL 160-189 mg/dL HighLDL greater than 189 mg/dL Very highCholesterol in LDL [Mass/Vol]39 mg/dL0Tr[facility] West CampusComment on above:LDL ATP III CLASSIFICATIONLDL less than 100 mg/dL OptimalLDL 100-129 mg/dL Near or above agkafpbZFI828-757 mg/dL Borderline highLDL 160-189 mg/dL HighLDL greater than 189 mg/dL Very highCholesterol in VLDL Calc [Mass/Vol]Ordered By: Erik Kim on 99-66-3631Vyzrlorrtoq in VLDL [Mass/Vol]Cholesterol in VLDL [Mass/volume] in Serum or Plasma by calculationTrinity Health System West CampusCholesterol in VLDL [Mass/Vol]67 mg/dLTrinity Health System West Campus Lipid Panelon 87-77-7671DYX Cholesterol,Vqhnvihiyk69 mg/dLNormal0-100The [facility] Hospital Physician GroupComment on above:Result Comment: LDL ATP III CLASSIFICATION LDL less than 100 mg/dL Optimal LDL 100-129 mg/dL Near or above optimal LDL 130-159 mg/dL Borderline high LDL 160-189 mg/dL High LDL greater than 189 mg/dL Very highPerformed By: #### TSH3 wRFLX, LIPID, [id number] #### [facility] [address] [place] [address] USATriglyceride w/Shfhql436 mg/dLHigh0-149The [facility] Access Hospital Physician GroupComment on above:Result Comment: TRIG ATP III CLASSIFICATION TRIG less than 150 mg/dL Normal TRIG 150-199 mg/dL Borderline high TRIG 200-500 mg/dL High TRIG greater than 500 mg/dL Very high Standard traceable to the Center for Disease Conrtrol and Prevention (CDC) test method.Performed By: #### TSH3 wRFLX, LIPID, [id number] #### [facility] [address] [place] [address] USAVLDL CAVFPAMMACD73 mg/dLNormAdventHealth Daytona Beach Physician GroupComment on above:Performed By: #### TSH3 wRFLX, LIPID, [id number] #### [facility] [address] [place] [address] USASerum or plasma total cholesterol/high density lipoprotein (HDL) cholesterol mass ratOrdered By: Erik Kim on 12-13-2024 Cholesterol.total/Cholesterol in HDL [Mass ratio]Serum or plasma total cholesterol/high density lipoprotein (HDL) cholesterol mass rat<5.0[facility] CampusCholesterol.total/Cholesterol in HDL [Mass ratio]3.5 {ratio}Normal<5.0[facility] West CampusComment on above:Performed By: #### TSH3 wRFLX, LIPID, [id number] #### [facility] [address] [place] [id number] USAThyroid Stim Hormone w/Rflxon 41-75-6115Ckpjkgg Stim Hormone w/Rflx1.95 u[iU]/mLNormal0.45-5.33The [facility] Access Hospital Physician GroupComment on above:Performed By: #### TSH3 wRFLX, LIPID, [id number] #### [facility] [address] [place] [id number] USAThyrotropin [Units/volume] in Serum or PlasmaOrdered By: Erik Kim on 06-08-4116JSS QnThyrotropin [Units/volume] in Serum or Plasma0.45-5.33[facility] West CampusTSH Qn1.95 m[IU]/L0.45-5.33 [facility] CampusTriglyceride [Mass/volume] in Serum or Plasma Ordered By: Erik Kim on 21-84-5112Keyltwumgicz [Mass/Vol] Triglyceride [Mass/volume] in Serum or PlasmaHigh0-149[facility] CampusComment on above:TRIG ATP III CLASSIFICATIONTRIG less than 150 mg/dL NormalTRIG 150-199 mg/dL Borderline highTRIG 200-500 mg/dL High TRIG greater than 500 mg/dL Very highStandard traceable to the Center for Disease Conrtrol and Prevention (CDC) test method.Triglyceride [Mass/Vol]338 mg/dLHigh0-149 [facility] CampusComment on above:TRIG ATP III CLASSIFICATIONTRIG less than 150 mg/dL NormalTRIG 150-199 mg/dL Borderline highTRIG 200-500 mg/dL High TRIG greater than 500 mg/dL Very highStandard traceable to the Center for Disease Conrtrol and Prevention (CDC) test method. Vitamin D 25 Hydroxy Totalon 42-43-6496Lkzamfl D 25 Hydroxy Total26.8 ng/mLLow 30-100The [facility] Hospital Physician GroupComment on above:Result Comment: VITAMIN D STATUS 25(OH)VITAMIN D RANGE (ng/mL) Deficient <20 Insufficient 20 to <30 Sufficient 30 to 100 Reference: Abdi MF,Shannon NC, Danyel HICKS, et al. Evaluation,treatment, and prevention of vitamin D deficiency; an Endocrine Society clinical practice guideline. JCEM. 2010; 96(7):1911-30. PERFORMED BY: [place] [address] PATHOLOGIST CHILD DEVELOPMENT SPECIALIST AVRIL LEDESMA M.D.Performed By: #### TSH3 wRFLX, LIPID, [id number] #### [facility] [address] [place] [id number] [facility] HEALTH CENTERVitamin D+Metabolites [Mass/volume] in Serum or Plasma Ordered By: Erik Kim on 47-42-7542Mlzaapa D+Metabolites [Mass/Vol] Vitamin D+Metabolites [Mass/volume] in Serum or CjqfiaNml35-319LhxawwhbiTrinity Health System West CampusComment on above:VITAMIN D STATUS 25(OH)VITAMIN D RANGE (ng/mL) Deficient <20 Insufficient 20 to <11Cznwtvncyx89 to 100Reference: Shannon Remy, Danyel HICKS, et al. Evaluation,treatment, and prevention of vitamin D deficiency; an Endocrine Society clinical practice guideline. [facility]. 2010; 96(7):1910-.Vitamin D+Metabolites [Mass/Vol]26.8 ng/mLLow 30-100[facility] West CampusComment on above:VITAMIN D STATUS 25(OH)VITAMIN D RANGE (ng/mL) Deficient <20 Insufficient 20 to <14Jawdxajlzr76 to 100Reference: Shannon Remy, Danyel HICKS, et al. Evaluation,treatment, and prevention of vitamin D deficiency; an Endocrine Society clinical practice guideline. [facility]. 2010; 96(7):1910-.CBC w/ Auto Diffon 97-08-0652Htrshiif Absolute0.0 E9/LNormal0.0-0.2FOhioHealth Van Wert HospitalComment on above:Performed By: #### [id number] #### [facility] [address] [place], [place] [address]Vpcogdfiq/100 WBC (Bld)0.3 %Normal0.0-2.0Parkwood HospitalComment on above:Performed By: #### [id number] #### [facility] [address] [place], [place] [address]Fsh Absolute0.2 E9/LNormal0.0-0.5FOhioHealth Van Wert Hospital Comment on above:Performed By: #### [id number] #### [facility] [address] [place], [place] [address]Wwqfxbmktgz/100 WBC (Bld)2.8 %Normal0.0-8.0Parkwood HospitalComment on above:Performed By: #### [id number] #### [facility] [address] [place], [place] [address]Hhcicynsqww distribution width (RBC) [Ratio]14.7 %High10.9-14.2 Parkwood HospitalComment on above:Performed By: #### [id number] #### [facility] [address] [place], [place] [address]Tytexdkssc (Bld) [Volume fraction]40.9 %Qlxgab18.0-46.0Parkwood HospitalComment on above:Performed By: #### [id number] #### [facility] [address] [place], [place] [address]Pqoyupxcfn (Bld) [Mass/Vol]14.1 g/xSTbbttb56.0-16.0[facility] HospitalComment on above:Performed By: #### [id number] #### [facility] [address] [place], [place] [address]Lkpfp Absolute2.0 E9/LNormal1.0-4.0[facility] Comment on above:Performed By: #### [id number] #### [facility] [address] [place] [address]Zccqynylisx/100 WBC (Bld)24.1 %Onvgyi71.0-50.0[facility] HospitalComment on above:Performed By: #### [id number] #### [facility] [address] [place] [address]SBU (RBC) [Entitic mass]30.7 xsUffrhc53.0-34.0[facility]wood HospitalComment on above:Performed By: #### [id number] #### [facility] [address] [place] [address]OEHV (RBC) [Mass/Vol]34.5 g/wZUgpuhz80.4-36.0[facility] HospitalComment on above:Performed By: #### [id number] #### [facility] [address] [place], [place] [address]VIV (RBC) [Entitic vol]88.8 bWPvjznj75.0-100.0[facility] HospitalComment on above:Performed By: #### [id number] #### [facility] [address] [place], [place] [address]Omrn Absolute0.5 E9/LNormal0.2-1.0[facility] Comment on above:Performed By: #### [id number] #### [facility] [address] [place], [place] [address]Ncnrlfbjs/100 WBC (Bld)6.8 %Normal4.0-14.0Park[facility] HospitalComment on above:Performed By: #### [id number] #### [facility] [address] [place], [place] [address]Vbmxti Absolute5.4 E9/LNormal2.0-7.5FOhioHealth Van Wert Hospital Comment on above:Performed By: #### [id number] #### [facility] [address] [place], [place] [address]Cmrkza Auto66.0 %Bgmkyw79.0-75.0[facility] Comment on above:Performed By: #### [id number] #### [facility] [address] [place] [address]Zcyvhaqn956.0 E9/NZgtdhi493.0-500.0[facility] Comment on above:Performed By: #### [id number] #### [facility] [address] [place] [address]Ctsmrxkb mean volume (Bld) [Entitic vol]8.0 fLNormal6.4-10.8 [facility] HospitalComment on above:Performed By: #### [id number] #### [facility] [address] [place], [place] [address]HSF6.6 E12/LNormal4.3-5.9[facility] HospitalComment on above:Performed By: #### [id number] #### [facility] [address] [place] [address]XAW1.1 E9/LNormal4.0-11.0[facility] HospitalComment on above:Performed By: #### [id number] #### [facility] [address] [place] [address]NOTLWJLRGNarhxlj By: SYSTEM SYSTEM on 33-00-5809Wsoyjenirknc Screen method >1000 ng/mL Ql (U)NEGATIVE 7 (12/12/24 2:18 PM)NormalNEGATIVERemisol ChemComment on above:Interpretive Data: Negative Cutoff: <1000 ng/mLBarbiturates Screen Ql (U)NEGATIVE 8 (12/12/24 2:18 PM)NormalNEGATIVERemisol ChemComment on above:Interpretive Data: Negative Cutoff: <200 ng/mLBenzodiazepines Ql (U)NEGATIVE 1 (12/12/24 2:18 PM)NormalNEGATIVERemisol ChemComment on above:Interpretive Data: Negative Cutoff: <200 ng/mLCannabinoids Screen Ql (U)NEGATIVE 6 (12/12/24 2:18 PM)NormalNEGATIVERemisol ChemComment on above:Interpretive Data: Negative Cutoff: <50 ng/mLCocaine Ql (U)NEGATIVE 2 (12/12/24 2:18 PM)NormalNEGATIVERemisol ChemComment on above:Interpretive Data: Negative Cutoff: <300 ng/mLOpiates Screen Ql (U)NEGATIVE 4 (12/12/24 2:18 PM)NormalNEGATIVERemisol ChemComment on above:Interpretive Data: Negative Cutoff: <300 ng/mLPhencyclidine Screen method >25 ng/mL Ql (U)NEGATIVE 5 (12/12/24 2:18 PM)NormalNEGATIVERemisol ChemComment on above:Interpretive Data: Negative Cutoff: <25 ng/mL These drug screen results are to be used for medical (i.e., treatment) purposes only. Unconfirmed drug screening results must not be used for non-medical purposes (e.g., employment testing, legal testing).U FentanylNEGATIVE 9 (12/12/24 2:18 PM)NormalNEGATIVERemisol ChemComment on above:Interpretive Data: Negative Cutoff: <5 ng/mL These drug screen results are to be used for medical (i.e., treatment) purposes only. Unconfirmed drug screening results must not be used for non-medical purposes (e.g., employment testing, legal testing).Albumin [Mass/Vol]4.0 g/dL Normal3.3 - 5.0 gm/dLRemisol ChemAlbumin/Globulin [Mass ratio]1.4 {ratio}Normal 1.1 - 2.2Remisol ChemALP [Catalytic activity/Vol]89 [iU]/tYvbbwq94 - 98 Int._Unit/LRemisol ChemALT No additional P-5'-P [Catalytic activity/Vol]20 [iU]/dNormal6 - 46 Int._Unit/LRemisol ChemAnion gap [Moles/Vol]11 mmol/LNormal6 - 16 mEq/LRemisol ChemAST [Catalytic activity/Vol]22 [iU]/dNormal5 - 43 Int._Unit/LRemisol ChemBilirubin [Mass/Vol]0.6 mg/dLNormal0.0 - 1.1 mg/dLRemisol ChemCalcium [Mass/Vol]9.2 mg/dLNormal8.9 - 11.1 mg/dLRemisol ChemChloride [Moles/Vol]101 mmol/PGvyhfz901 - 111 mmol/LRemisol ChemCO2 [Moles/Vol]28 mmol/L Obhlui56 - 31 mmol/LRemisol ChemCreatinine [Mass/Vol]0.9 mg/dLNormal0.5 - 1.3 mg/dLRemisol ChemEthanol Lvlmg/dLNormal<=11mg/dLRemisol ChemGFR/1.73 sq M.predicted MDRD (S/P/Bld) [Vol rate/Area]67 mL/min/1.73 r2Sectmh>=59mL/min/1.73 u1Lfpvdmk ChemGlobulin (S) [Mass/Vol]2.9 g/dLNormal1.4 - 4.0 gm/dLRemisol Chem Glucose [Mass/Vol]133 mg/mCZolmuu47 - 199 mg/dLRemisol ChemPotassium [Moles/Vol] 3.5 mmol/LNormal3.5 - 5.3 mmol/LRemisol ChemProtein [Mass/Vol]6.9 g/dLNormal6.0 - 7.8 gm/dLRemisol ChemSodium [Moles/Vol]136 mmol/CXftqox445 - 145 mmol/LRemisol ChemUrea nitrogen [Mass/Vol]22 mg/dLHigh5 - 21 mg/dLRemisol ChemUrea nitrogen/Creatinine [Mass ratio]24 mg/ipWpmg74 - 20Remisol ChemCMPon 12-12-2024 Albumin [Mass/Vol]4.0 g/dLNormal3.3-5.0Parkwood HospitalComment on above:Performed By: #### [id number] #### [facility] [address], [place] [address]Fwurbse/Globulin [Mass ratio]1.4 {ratio}Normal1.1-2.2FOhioHealth Van Wert HospitalComment on above:Performed By: #### [id number] #### [facility] [address], [place] [address]Pzw Phos89 Int._Unit/FHppkwg89-19YpkwwhParkwood Hospital Comment on above:Performed By: #### [id number] #### [facility] [address] [place] [address] 13613RWA33 Int._Unit/LNormal6-46Parkwood HospitalComment on above:Performed By: #### [id number] #### [facility] [address], [place] [address]Swtqq gap [Moles/Vol]11 mmol/LNormal6-16Parkwood HospitalComment on above:Performed By: #### [id number] #### [facility] [address] [place] [address] 19667WPG62 Int._Unit/LNormal5-43Parkwood HospitalComment on above:Performed By: #### [id number] #### [facility] [address], [place] [address]Qcbu Total0.6 mg/dLNormal0.0-1.1FOhioHealth Van Wert Hospital Comment on above:Performed By: #### [id number] #### [facility] [address], [place] [address]ALG/Creat Ratio24 No NolgeKgah51-58TwwwzeParkwood Hospital Comment on above:Performed By: #### [id number] #### [facility] [address], [place] [address]Sksxzkl [Mass/Vol]9.2 mg/dLNormal8.9-11.1FOhioHealth Van Wert HospitalComment on above:Performed By: #### [id number] #### [facility] [address], [place] [address]Webdcgvw [Moles/Vol]101 mmol/JUnmxpk791-076FgxbbjParkwood HospitalComment on above:Performed By: #### [id number] #### [facility] [address], [place] [address]QT9 [Moles/Vol]28 mmol/EBbwjtn50-82FujynlParkwood Hospital Comment on above:Performed By: #### [id number] #### [facility] [address], [place] [address]Aaunzxplsu [Mass/Vol]0.9 mg/dLNormal0.5-1.3FOhioHealth Van Wert HospitalComment on above:Performed By: #### [id number] #### [facility] [address], [place] [address]Cxtpaqve (S) [Mass/Vol]2.9 g/dLNormal1.4-4.0Parkwood HospitalComment on above:Performed By: #### [id number] #### [facility] [address], [place] [address]Mryhsrr [Mass/Vol]133 mg/gSKmyina18-900RqgxhaParkwood HospitalComment on above:Performed By: #### [id number] #### [facility] [address], [place] [address]Wknsfaqzq [Moles/Vol]3.5 mmol/LNormal3.5-5.3FOhioHealth Van Wert HospitalComment on above:Performed By: #### [id number] #### [facility] [address], [place] [address]Soxzwjk [Mass/Vol]6.9 g/dLNormal6.0-7.8Parkwood HospitalComment on above:Performed By: #### [id number] #### [facility] [address], [place] [address]Geaieb [Moles/Vol]136 mmol/ROneryd937-780OkzrxnParkwood HospitalComment on above:Performed By: #### [id number] #### [facility] [address], [place] [address]Jcxo nitrogen [Mass/Vol]22 mg/dLHigh5-21Parkwood HospitalComment on above:Performed By: #### [id number] #### [facility] [address] [place] [address]OK Clinical Summaryon 88-50-7277FW Clinical SummaryED Clinical Summary [address] [address] ED Clinical Summary Person Information Name: SHEY OBRIEN/Herminia Age: 74 Years : 1950 Sex: Female Language: Malagasy PCP: LATRELL JACK MD Marital Status: Single MRN: Visit Id: Visit Reason: Suicidal ideation; Psychiatric [...] 12/12/2024 17:40:09 12/12/2024 17:40:09 12/12/2024 17:40:09 ADDRESS: [address] [place] [phone] PHYS DOC NOTES: MEDICAL INFORMATION: Prescriptions Given: [...] (at bedtime). fluticasone nasal (Flonase 0.05 mg/inh [place]) 2 Sprays Nasal Inhalation every day. losartan [...] EDUCATION INFORMATION: Instructions: Follow up: DIAGNOSIS: Suicidal ideationSandrarmalDelon Brantley Medical CenterED Note-Physicianon 12-12-2024 ED Note-PhysicianED Note-Physician Basic Information Time Seen: Elmer Kohli DO 12/12/2024 13:40 Chief Complaint pt has hx of anxiety. very jitttery. pt says she had thoughts of hurting herself on monday. i feellike my kids would be better off without [...] department chief complaint suicidal ideation. Vital stable, thepatient is afebrile. Psychiatric screening is ordered. Lab work unremarkable. Urine questionable, no obvious UTI symptoms clinically. Will allow to culture. MHP evaluated. Patient be placed at [address] Kim. Assessment/Plan Suicidal ideation [...] a day (at bedtime) Flonase 0.05 mg/inh [place], 2 spray(s), Nasal, Daily losartan 25 mg [...] 88.8 fL (12/12/24 13:50 (more content not included)...[facility] Healthcare SystemComment on above:Result Comment: Electronically Signed By: Elmer Kohli DO\.br\Date and Time Signed: 12/12/24 17:26 EDTED Patient Education Noteon [id number] Patient Education NoteED Patient Education NoteNormOhioHealth Hardin Memorial Hospital Patient Summaryon [id number] Patient SummaryED Patient Summary [place] [id number] Patient Discharge Instructions Person Information Name: SHEY OBRIEN Age: 74 Years Arrival Date: 12/12/2024 13:24:04 Discharge Diagnosis: Suicidal ideation Primary Care Physician: LATRELL JACK MD Provider Information Primary Provider: Elmer Kohli DO Advanced [place] Cleaner:None The exam and treatment you received in the Emergency Department were for an urgent problem and are not intended as complete care. It is important that you follow up with a doctor, nurse practitioner,or physician???s entry level administrative assistant for ongoing care. If your symptoms become worse or you do not improve asexpected and you are unable to reach your usual health care provider, you should return to the Emergency Department. We are available 24 hours a day. SHEY OBRIEN has been given the following list of patient education materials, prescriptions andfollow-up instructions: Follow-up Instructions: In the event that this physician does not participate in your insurance network, please consult with your insurance company to find a nearby participating provider. Patient Education Materials: A MESSAGE TO ALL PATIENTS REGARDING OPIOIDS PRESCRIPTION OPIOIDS: WHAT YOU NEED TO KNOW Prescription opioids can be used to help relieve uszbbizz-eo-mmcqvu pain and are often prescribed following a [...] be struggling with addiction, tell your health home health care worker and askfor guidance or call [facility]???S National Helpline at 8-102-050-TYGB. b Source: [place] Department of Health and Human Services/Center for Disease Control & Prevention Amer (more content not included)...NormalParkwood HospitalEthanolon 88-89-8833Gmesoij Lvl<10Normal<=11[facility] Comment on above:Performed By: #### [id number] #### [facility] [address], [place] [address]XQVCUEOROYPfatucu By: SYSTEM SYSTEM on 49-80-9243Jqlzisulx/100 WBC (Bld)0.3 %Normal0.0 - 2.0 %Remisol HemeBasophils/Leukocytes Auto (Bld) [Pure # fraction]0.0 E9/LNormal0.0 - 0.2 E9/LRemisol HemeEosinophils (Bld) [#/Vol]0.2 E9/LNormal0.0 - 0.5 E9/LRemisol HemeEosinophils/100 WBC (Bld)2.8 %Normal0.0 - 8.0 %Remisol HemeErythrocyte distribution width (RBC) [Ratio]14.7 %High10.9 - 14.2 %Remisol HemeHematocrit (Bld) [Volume fraction]40.9 %Rppgri12.0 - 46.0 % Remisol HemeHemoglobin (Bld) [Mass/Vol]14.1 g/wSIwzdce40.0 - 16.0 gm/dLRemisol HemeLymphocytes (Bld) [#/Vol]2.0 E9/LNormal1.0 - 4.0 E9/LRemisol Heme Lymphocytes/100 WBC (Bld)24.1 %Lnvxuq89.0 - 50.0 %Remisol HemeMCH (RBC) [Entitic mass]30.7 sgAutuja24.0 - 34.0 pgRemisol HemeMCHC (RBC) [Mass/Vol]34.5 g/dL Inloot92.4 - 36.0 gm/dLRemisol HemeMCV (RBC) [Entitic vol]88.8 wFEnhskg43.0 - 100.0 fLRemisol HemeMonocytes (Bld) [#/Vol]0.5 E9/LNormal0.2 - 1.0 E9/LRemisol HemeMonocytes/100 WBC (Bld)6.8 %Normal4.0 - 14.0 %Remisol HemeNeutrophils (Bld) [#/Vol]5.4 E9/LNormal2.0 - 7.5 E9/LRemisol HemeNeutrophils/100 WBC (Bld)66.0 % Ynzcbr02.0 - 75.0 %Remisol HemePlatelet mean volume (Bld) [Entitic vol]8.0 fL Normal6.4 - 10.8 fLRemisol HemePlatelets (Bld) [#/Vol]168.0 E9/ZHhfswg063.0 - 500.0 E9/LRemisol HemeRBC (Bld) [#/Vol]4.6 E12/LNormal4.3 - 5.9 E12/LRemisol HemeWBC corrected for nucl RBC Auto (Bld) [#/Vol]8.1 E9/LNormal4.0 - 11.0 E9/L Remisol HemeU Drug Screenon 12-12-2024 Amph ScrNegativeNormalNEGATIVEParkwood HospitalComment on above:Result Comment: Negative Cutoff: <1000 ng/mLPerformed By: #### [id number] #### [facility] [address], [place] [address]A Jessica ScrNegativeNormalNEGATIVEParkwood Hospital Comment on above:Result Comment: Negative Cutoff: <200 ng/mLPerformed By: #### [id number] #### [facility] [address], [place] [address]A Benzodia ScrNegativeNormalNEGATIVEParkwood Hospital Comment on above:Result Comment: Negative Cutoff: <200 ng/mLPerformed By: #### [id number] #### [facility] [address] [place] [address]V Cannab ScrNegativeNormalNEGATIVEParkwood Hospital Comment on above:Result Comment: Negative Cutoff: <50 ng/mLPerformed By: #### [id number] #### [facility] [address] [place] [address]B Cocaine ScrNegativeNormalNEGATIVEParkwood Hospital Comment on above:Result Comment: Negative Cutoff: <300 ng/mLPerformed By: #### [id number] #### [facility] [address] [place] [address]O FentanylNegativeNormalNEGZanesville City Hospital Comment on above:Result Comment: Negative Cutoff: <5 ng/mL These drug screen results are to be used for medical (i.e., treatment) purposes only. Unconfirmed drug screening results must not be used for non-medical purposes (e.g., employment testing, legal testing).Performed By: #### [id number] #### [facility] [address], [place] [address]R Opiate ScrNegativeNormalNEGZanesville City Hospital Comment on above:Result Comment: Negative Cutoff: <300 ng/mLPerformed By: #### [id number] #### [facility] [address] [place] [address] 28[address]Q PCP ScrNegativeNormalNEGZanesville City Hospital Comment on above:Result Comment: Negative Cutoff: <25 ng/mL These drug screen results are to be used for medical (i.e., treatment) purposes only. Unconfirmed drug screening results must not be used for non-medical purposes (e.g., employment testing, legal testing).Performed By: #### [id number] #### [facility] [address] [place] [address]VZ with Cult Rflxon 71-34-3749Ltgjm (U)Light-YellowNormalYellow Parkwood HospitalComment on above:Result Comment: Microscopic readings are only performed on those samples that meet specific criteria set forth by [facility].Performed By: #### [id number] #### [facility] [address], [place] [address]Lwgdvyj (U) [Mass/Vol]NegativeNormalNegativeParkwood HospitalComment on above:Performed By: #### [id number] #### [facility] [address], [place] [address]Gkmqjyf Ql (U)NegativeNormalNegFayette County Memorial Hospital Comment on above:Performed By: #### [id number] #### [facility] [address], [place] [address]IL BloodNegativeNocarolinaeast medical centerNegFayette County Memorial Hospital Comment on above:Performed By: #### [id number] #### [facility] [address], [place] [address]NK Bacteria1+ /HPFAbnormalTraceParkwood Hospital Comment on above:Performed By: #### [id number] #### [facility] [address], [place] [address]SG ClarityClearNormalClearParkwood HospitalComment on above:Performed By: #### [id number] #### [facility] [address], [place] [address]ZW Leuk Est75 Marbella/uLAbnormalNegFayette County Memorial Hospital Comment on above:Performed By: #### [id number] #### [facility] [address], [place] [address]LE MucousTraceNormalNegFayette County Memorial HospitalComment on above:Performed By: #### [id number] #### [facility] [address], [place] [address]MG NitriteNegativeNormalNegFayette County Memorial Hospital Comment on above:Performed By: #### [id number] #### [facility] [address], [place] [address]SJ pH5.5Invalid Interpretation Code5.0-9.0Parkwood HospitalComment on above:Performed By: #### [id number] #### [facility] [address] [place] [address]MQ ProteinNegativeNormalNegativeParkwood Hospital Comment on above:Performed By: #### [id number] #### [facility] [address] [place] [address]DZ Spec Grav1.009Invalid Interpretation Code1.005-1.030Parkwood HospitalComment on above:Performed By: #### [id number] #### [facility] [address] [place] [address] 132[address]YZ Squam Epithelial0-2Invalid Interpretation CodeParkwood HospitalComment on above:Performed By: #### [id number] #### [facility] [address] [place] [address]MH UrobilinogenNegativeNormalNegFayette County Memorial HospitalComment on above:Performed By: #### [id number] #### [facility] [address] [place] [address]Ftmkrvrdxxpw (U) [Mass/Vol]NegativeNormalNegativeParkwood HospitalComment on above:Performed By: #### [id number] #### [facility] [address] [place] [address]KJ Spec DescClean CatchNormalParkwood HospitalComment on above:Performed By: #### [id number] #### [facility] [address] [place] [address]LJIZQVLERVAfcactc By: SYSTEM SYSTEM on 67-23-8129Jdapbtak Auto Ql (U)1+ /HPFInvalid Interpretation CodeTrace/HPFFTMC UA Auto SSBilirubin Ql (U) NegativeNormalNegativemg/dLFTMC UA Auto SSClarity (U)Clear (12/12/24 2:18 PM)NormalClearFTMC UA Auto SSColor (U)Light-Yellow 3 (12/12/24 2:18 PM)NormalYellowALLIANCEHEALTH SEMINO[facility] – [facility] UA Auto SSComment on above:Interpretive Data: Microscopic readings are only performed on those samples that meet specific criteria set forth by [facility].Epithelial cells.squamous Auto (Urine sed) [#/Area]0-2 graded/HPFInvalid Interpretation CodeALLIANCEHEALTH SEMINOLE – [facility]INO[facility] UA Auto SSGlucose Ql (U)NegativeNormalNegativemg/dLALLIANCEHEALTH [facility]INO[facility] UA Auto SS Hemoglobin Auto test strip (U) [Mass/Vol]NegativeNormalNegativemg/dLALLIANCEHEALTH [facility]INO[facility] UA Auto SSKetones Auto test strip Ql (U)NegativeNormalNegativemg/dLALLIANCEHEALTH [facility]INO[facility] UA Auto SS Leukocyte esterase Auto test strip Ql (U)75 [place]ella/uL [place]bella/uLInvalid Interpretation CodeNegativeLeu/uLALLIANCEHEALTH [facility] UA Auto SSMucus Auto Ql (U)Trace graded/LPFNormal Negativegraded/LPFFTHE [facility]IL[facility] UA Auto SSNitrite Auto test strip Ql (U)NegativeNormal Negativemg/dLALLIANCEHEALTH [facility]INO[facility] UA Auto SSpH (U)5.5 *NA* (12/12/24 2:18 PM)Invalid Interpretation Code5.0 - 9.0[facility]A Auto SSProtein Ql (U)NegativeNormalNegativemg/dLALLIANCEHEALTH [facility] UA Auto SSSpecific gravity (U) [Rel density] 1.009 *NA* (12/12/24 2:18 PM)Invalid Interpretation Code1.005 - 1.030[facility] UA Auto SS Urobilinogen (U) [Mass/Vol]NegativeNormalNegativemg/dLALLIANCEHEALTH [facility]INOLE [facility] UA Auto SSURINALYSIS Ordered By: Elmer Kohli on 40-87-2977UK Spec DescClean Catch (12/12/24 2:18 PM)NormalALLIANCEHEALTH SEMINOLE – [facility] UA Auto SS XR HIP LT MIN 2Von 77-96-5929C[address] [address] XRay Report Signed Patient: HSEY OBRIEN MR#: [id number] : 1950 Acct:[id number] Age/Sex: 74 / F ADM Date: 12/12/24 Loc: RAD Attending Dr: Will Chintan BAR HELPER Ordering Physician: Will Woodson NP Date of Service: 12/12/24 Procedure(s): XR hip LT min 2V Accession Number(s): [id number] cc: Will Woodson NP; Latrell Jack M.D. The [address] [address] Patient Name: SHEY OBRIEN MRN: [id number] date: 1950 Sex: F Assigned Patient Location: PM Current Patient Location: Accession/Order Number: [id number] Exam Date: 12/12/2024 10:32 Report Date: 12/12/2024 [...] Narvaez M.D. 12/12/2024 10:34 AM Dictation Location: [place] [address] Electronically authenticated by: [id number] Y Date: 12/12/2024 10:34 Dictated By: Juliane Narvaez M.D. Signed By: 12/12/24 1037 DD/ 1034 TD/TT: Bridge Worker:TBHRadiology, Radiologist, MD - 12/12/[address] [address] XRay Report Signed Patient: SHEY OBRIEN MR#: [id number] : 1950 Acct:[id number] Age/Sex: 74 / F ADM Date: 12/12/24 Loc: RAD Attending Dr: Will Woodson NP Ordering Physician: Will Woodson NP Date of Service: 12/12/24 Procedure(s): XR hip LT min 2V Accession Number(s): [id number] cc: Will Woodson NP; Latrell Jack M.D. [place] [id number] Patient Name: SHEY OBRIEN MRN: [id number] date: 1950 Sex: F Assigned Patient Location: PM Current Patient Location: PM Accession/Order Number: [id number] Exam Date: 12/12/2024 10:32 Report Date: 12/12/2024 [...] Narvaez M.D. 12/12/2024 10:34 AM Dictation Location: [place] [address] Electronically authenticated by: [id number] Y Date: 12/12/2024 10:34 Dictated By: Juliane Narvaez M.D. Signed By: 12/12/24 1037 DD/ 1034 TD/TT: Bridge Worker: NOMS HealthcareRadiology Study observation (narrative)NOMS HealthcareXR HIP LT MIN 2VOrdered By: Radiologist Radiology on 05-64-0573REZR Healthcare Work Phone: eGFRon 62-68-6506gBYI71 mL/min/1.73 r3Ftihvu>=59Fisher [facility] CenterComment on above:Performed By: #### [id number] #### [facility] [address] [place] [address]MSR CBC WITH AUTO DIFFon 69-56-4721NOAKFIUFT ABSOLUTE FGBD6WWGN HealthcareBasophils/100 WBC (Bld)0.4 %0.2 - 2.0 %NOM HealthcareEosinophils/100 WBC (Bld)3.5 %0.9 - 7.0 %[facility] HealthcareErythrocyte distribution width (RBC) [Ratio]12.8 %11.0 - 15.0 %[facility] HealthcareHematocrit (Bld) [Volume fraction]39.2 %36.0 - 48.0 %Research Medical CenterHemoglobin (Bld) [Mass/Vol]13.1 g/dL12.0 - 16.0 g/dLResearch Medical CenterIMMATURE GRANULOCYTES ABS AUTO0.09HighNOParkland Health CenterImmature granulocytes/100 WBC (Bld)1.3 %High0.0 - 0.5 %[facility] HealthcareInterpretation and review of laboratory resultsAbnormalResearch Medical CenterLYMPHOCYTES ABSOLUTE AUTO1.2 NOMThe Rehabilitation Institute Of St. LouisLymphocytes/100 WBC (Bld)18.3 %Low20.5 - 60.0 %[facility] HealthH (RBC) [Entitic mass]31.9 pg26.7 - 34.0 pgNOParkland Health CenterMCHC (RBC) [Mass/Vol] 33.4 g/dL29.9 - 35.2 g/dLCarondelet HealthV (RBC) [Entitic vol]95.4 fL81.0 - 99.0 fLResearch Medical CenterMONOCYTES ABSOLUTE AUTO0.4NOMS HealthcareMonocytes/100 WBC (Bld)6.5 %1.7 - 12.0 %[facility] Medical CenterNEUTROPHILS ABSOLUTE AUTO4.7NOMS [facility] Neutrophils/100 WBC (Bld)70 %43.0 - 75.0 %Research Medical CenterPlatelet mean volume (Bld) [Entitic vol]10.6 fL9.5 - 13.5 fLNOParkland Health CenterTB EO #0.2[facility] TBH QIA518PEVWOzarks Community Hospital RBC4.11LowNOParkland Health CenterTB WBC6.8NOParkland Health Center CLINISYNCLIFEPOINT HOSPITALS HealthcareCNOVon 77-60-8398QNFIJhgvce Visit (GENN) SHEY OBRIEN ([id number]) 1950 F Date Time Provider Department 08/07/24 [...] dry Temperature: No Drains: No Katarzyna Snyder APRN.CARDIOPULMONARY TECHNOLOGIST 08/07/2024 3:37 PM Signed [facility] Clinic Date: August [...] completed prior to appointment Katarzyna Snyder, MSN, CARDIOPULMONARY TECHNOLOGIST August 07, 2024 Referring Provider: BARI CASTILLO [[id number]] Allergies As of Date: 08/07/2024 (No Known Allergies) Date Reviewed: 08/07/2024 Reviewed by: Olga Lidia Blake MA - Fully Assessed Reason for Visit: Post Op [174] Primary Visit Diagnosis:Postoperative visit [Z (more content not included)... NormalUniversity [facility]als [facility] 12 leadon 88-51-5152Wkqpcnckmbj Rate : 66 BPM Atrial Rate : 66 BPM P-R Interval : 158 ms QRS Duration : 78 ms Q-T Interval : 404 ms QTC Calculation(Bazett) : 423 ms Calculated P [place] : 32 degrees Calculated R [place] : 14 degrees Calculated T [place] : 54 degrees NORMAL SINUS RHYTHM NORMAL ECG Confirmed by MD MCCLENDON HEBA ([id number]) on 07/29/2024 12:16:17 PM NAME : SHEY OBRIEN PID : [id number] : 1950 Gender : Female Race : ORD : [id number] Procedure Date : Jul 23 2024 12:08:10 Edit Date : Jul 29 2024 12:16:18 Diagnosis: NORMAL SINUS RHYTHM NORMAL ECG Confirmed by MD MCCLENDON HEBA ([id number]) on 07/29/2024 12:16:17 PM Test Reason : Location : 119 : A17 A17 Overread By : MD MCCLENDON HEBA Edited By : MD MCCLENDON HEBA Referred By : XAVIER BOYD Acquired by : STEPHEN HAadiology, RadiologistMD - 07/29/2024 Ventricular Rate : 66 BPM Atrial Rate : 66 BPM P-R Interval : 158 ms QRS Duration : 78 ms Q-T Interval : 404 ms QTC Calculation(Bazett) : 423 ms Calculated P [place] : 32 degrees Calculated R [place] : 14 degrees Calculated T [place] : 54 degrees NORMAL SINUS RHYTHM NORMAL ECG Confirmed by MD MCCLENDON HEBA ([id number]) on 07/29/2024 12:16:17 PM NAME : SHEY OBRIEN PID : [id number] : 1950 Gender : Female Race : ORD : [id number] Procedure Date : Jul 23 2024 12:08:10 Edit Date : Jul 29 2024 12:16:18 Diagnosis: NORMAL SINUS RHYTHM NORMAL ECG Confirmed by MD MCCLENDON HEBA ([id number]) on 07/29/2024 12:16:17 PM Test Reason : Location : 119 : A17 A17 Overread By : MD MCCLENDON HEBA Edited By : MD MCCLENDON HEBA Referred By : XAVIER BOYD Acquired by : SADE HA [facility] 12 leadOrdered By: Radiologist Radiology on 26-66-9128XJYQ [employer] Work Phone: basic metabolic 2000 panelon 54-69-5761Fqqdv gap [Moles/Vol]12 mmol/LNormal8-15[facility] on above:Order Comment: Specimen Type: BLOOD SPECIMEN Ordering Facility: [facility] Address: [address] [place], [place] [address]Performed By: #### 46356-5, 25078-7 #### [facility] CLIA [id number] [address] [place] [address] [place] OF AMERICACalcium [Mass/Vol]9.0 mg/dL Normal8.5-10.2CKindred Hospital Dayton on above:Order Comment: Specimen Type: BLOOD SPECIMEN Ordering Facility: [facility] Address: [address] [place], [place] [address]Performed By: #### 48693-7, 40438-1 #### [facility] CLIA [id number] [address] [place] [address] [place] AMERICAChloride [Moles/Vol]107 mmol/JTkdweg26-998UbcrvsugtHocking Valley Community Hospital on above:Order Comment: Specimen Type: BLOOD SPECIMEN Ordering Facility: [facility] Address: [address] [place], [place] [address]Performed By: #### 98678-4, 04274-4 #### [facility] CLIA [id number] [address] [place] [address] [place] AMERICACO2 [Moles/Vol]24 mmol/L Zjpcaa85-71FshlwbaddHocking Valley Community Hospital on above:Order Comment: Specimen Type: BLOOD SPECIMEN Ordering Facility: [facility] Address: [address] [place], [place] [address]Performed By: #### 25509-7, 74272-9 #### [facility] CLIA [id number] [address] [place] [address] [place] AMERICACreatinine [Mass/Vol]0.92 mg/dLNormal0.58-0.96[facility] on above:Order Comment: Specimen Type: BLOOD SPECIMEN Ordering Facility: [facility] Address: [address] [place], [place] [address]Performed By: #### 74794-6, 24600-5 #### [facility] CLIA [id number] [address] [place] [address] [place] AMERICACreatinine and Glomerular filtration rate.predicted panel (S/P/Bld)66 mL/min/1.73m???Normal>=60[facility] on above:Order Comment: Specimen Type: BLOOD SPECIMEN Ordering Facility: [facility] Address: [address] [place], [place] [address]Result Comment: Estimated Glomerular Filtration Rate (eGFR) is calculated using the 2020 CKD-EPI cre atinine equation. This equation utilizes serum creatinine, sex, and age as parameters. The creatinine assay has traceable calibration to isotope dilution- mass spectrometry. Refer to KDIGO guidelines for clinical interpretation. In patients with unstable renal function, e.g. those with acute kidney injury, the eGFR may not accurately reflect actual GFR.Performed By: #### 78186-0, 99183-5 #### [facility] CLIA [id number] [address] [place] [address] [place] AMERICAGlucose [Mass/Vol]112 mg/dL Psng71-11BohppziffHocking Valley Community Hospital on above:Order Comment: Specimen Type: BLOOD SPECIMEN Ordering Facility: [facility] Address: [address] [place], [place] [address]Result Comment: The [place] Diabetes Association (ADA) provides guidance for cutoff [...] Standards of Medical Care in Diabetes 2016, [place] Diabetes Association. Diabetes Care. 2016.39(Suppl 1).Performed By: #### 43213-1, 64425-8 #### [facility] CLIA [id number] [address] [place] [address] [place] AMERICAPotassium [Moles/Vol]3.4 mmol/LLow3.7-5.1CKindred Hospital [facility] on above:Order Comment: Specimen Type: BLOOD SPECIMEN Ordering Facility: [facility] Address: [address] [place], [place] [address]Performed By: #### 43284-9, 88567-1 #### [facility] [place] [id number] [address] [place] [address] [place] AMERICASodium [Moles/Vol]143 mmol/L Kgbnal468-910NmyrmmnhdHocking Valley Community Hospital on above:Order Comment: Specimen Type: BLOOD SPECIMEN Ordering Facility: [facility] Address: [address] [place], [place] [address]Performed By: #### 94065-0, 12250-3 #### [facility] CLIA [id number] [address] [place] [address] [place] AMERICAUrea nitrogen [Mass/Vol]10 mg/dLNormal7-21[facility] on above:Order Comment: Specimen Type: BLOOD SPECIMEN Ordering Facility: [facility] Address: [address] [place], [place] [address]Performed By: #### 36583-7, 22576-0 #### [facility] CLIA [id number] [address] [place] [address] STATES OF AMERICACASE MANAGEMon 07-26-2024 CASE MANAGEMHNO ID: [id number] Author: KRISTIE DIAZ, ? Service: ? Author Type: ? Type: Care Mgt Progress Note Filed: 07/26/2024 11:58 Note Text: CARE MANAGEMENT PROGRESS NOTE SERVICE DATE: 07/26/2024 SERVICE TIME: 11:57 AM LOS: 2 days IMM Follow Up Copy Given: Yes Copy given to:: Patient Method: In Person SIGNATURE: Kristie Diaz CMA PATIENT NAME: Shey Obrien DATE: July 26, 2024 TIME: 11:57 AMNormalRegency Hospital [facility] East W Auto Differential panel (Bld)on 55-67-3943Xnyispvcz (Bld) [#/Vol]10*3/uLNormal<0.11CKindred Hospital [facility] on above:Order Comment: Specimen Type: BLOOD SPECIMEN Ordering Facility: [facility] Address: [address] [place], [place] [address]Performed By: #### 23962-4, HSTNT, 37214-9, 2777-1 #### [facility] CLIA [id number] [address] [place] [address] [place] AMERICABasophils/100 WBC (Bld)0.3 % NormalHocking Valley Community Hospital on above:Order Comment: Specimen Type: BLOOD SPECIMEN Ordering Facility: [facility] Address: [address] [place], [place] [address]Performed By: #### 30771-5, HSTNT, , 2776-07 #### [facility] CLIA [id number] [address] [place] [address] [place] AMERICADifferential cell count method Nom (Bld)AutoNormalCKindred Hospital Dayton on above:Order Comment: Specimen Type: BLOOD SPECIMEN Ordering Facility: [facility] Address: [address] [place], [place] [address]Performed By: #### 41190-3, HSTNT, , 2776-07 #### [facility] CLIA [id number] [address] [place] [address] [place] AMERICAEosinophils (Bld) [#/Vol] 0.08 10*3/uLNormal<0.46[facility] on above:Order Comment: Specimen Type: BLOOD SPECIMEN Ordering Facility: [facility] Address: [address] [place], [place] [address]Performed By: #### 27958-7, HSTNT, , 2776-07 #### [facility] CLIA [id number] [address] [place] [address] [place] AMERICAEosinophils/100 WBC (Bld)1.3 %NormalHocking Valley Community Hospital on above:Order Comment: Specimen Type: BLOOD SPECIMEN Ordering Facility: [facility] Address: [address] [place], [place] [address]Performed By: #### 69848-4, HSTNT, , 2776-07 #### [facility] CLIA [id number] [address] [place] [address] [place] AMERICAErythrocyte distribution width (RBC) [Ratio]13.9 %Fyhexr78.5-15.0[facility] on above:Order Comment: Specimen Type: BLOOD SPECIMEN Ordering Facility: [facility] Address: [address] [place], [place] [address]Performed By: #### 12813-3, HSTNT, , 2776-07 #### [facility] CLIA [id number] [address] [place] [address] [place] AMERICAHematocrit (Bld) [Volume fraction]35.1 %Low36.0-46.0[facility] on above:Order Comment: Specimen Type: BLOOD SPECIMEN Ordering Facility: [facility] Address: [address] [place], [place] [address]Performed By: #### 15718-0, HSTNT, , 2776-07 #### [facility] CLIA [id number] [address] [place] [address] [place] AMERICAHemoglobin (Bld) [Mass/Vol] 12.2 g/jZAhusmu97.5-15.5CKindred Hospital [facility] on above:Order Comment: Specimen Type: BLOOD SPECIMEN Ordering Facility: [facility] Address: [address] [place], [place] [address]Performed By: #### 03644-3, HSTNT, , 2776-07 #### [facility] CLIA [id number] [address] [place] [address] [place] AMERICAImmature granulocytes (Bld) [#/Vol]0.04 10*3/uLNormal<0.10[facility] on above:Order Comment: Specimen Type: BLOOD SPECIMEN Ordering Facility: [facility] Address: [address] [place], [place] [address]Performed By: #### 99372-8, HSTNT, , 2776-07 #### [facility] CLIA [id number] [address] [place], [place] [address] [place] AMERICAImmature granulocytes/100 WBC (Bld)0.7 %NormalHocking Valley Community Hospital on above:Order Comment: Specimen Type: BLOOD SPECIMEN Ordering Facility: [facility] Address: [address] [place], [place] [address]Performed By: #### 53254-8, HSTNT, , 2776-07 #### [facility] CLIA [id number] [address] [place] [address] [place] AMERICALymphocytes (Bld) [#/Vol] 1.90 10*3/uLNormal1.00-4.00[facility] on above:Order Comment: Specimen Type: BLOOD SPECIMEN Ordering Facility: [facility] Address: [address] [place], [place] [address]Performed By: #### 96774-2, HSTNT, , 2776-07 #### [facility] CLIA [id number] [address] [place] [address] [place] AMERICALymphocytes/100 WBC (Bld) 30.9 %[facility] on above:Order Comment: Specimen Type: BLOOD SPECIMEN Ordering Facility: [facility] Address: [address] [place], [place] [address]Performed By: #### 15255-7, HSTNT, , 2776-07 #### [facility] CLIA [id number] [address] [place] [address] (RBC) [Entitic mass]32.9 mmYfqcek43.0-34.0[facility] on above:Order Comment: Specimen Type: BLOOD SPECIMEN Ordering Facility: [facility] Address: [address] [place], [place] [address]Performed By: #### 60834-3, HSTNT, , 2776-07 #### [facility] CLIA [id number] [address] [place] [address] (RBC) [Mass/Vol]34.8 g/oTWiacpi46.5-36.0[facility] on above:Order Comment: Specimen Type: BLOOD SPECIMEN Ordering Facility: [facility] Address: [address] [place], [place] [address]Performed By: #### 91843-9, HSTNT, , 2776-07 #### [facility] CLIA [id number] [address] [place] [address] [place] AMERICAMCV (RBC) [Entitic vol]94.6 xMLkvqec79.0-100.0[facility] on above:Order Comment: Specimen Type: BLOOD SPECIMEN Ordering Facility: [facility] Address: [address] [place], [place] [address]Performed By: #### 00784-3, HSTNT, , 2776-07 #### [facility] CLIA [id number] [address] [place] [address] [place] AMERICAMonocytes (Bld) [#/Vol]0.46 10*3/uLNormal<0.87[facility] on above:Order Comment: Specimen Type: BLOOD SPECIMEN Ordering Facility: [facility] Address: [address] [place], [place] [address]Performed By: #### 35146-8, HSTNT, , 2776-07 #### [facility] CLIA [id number] [address] [place], [place] [address] [place] AMERICAMonocytes/100 WBC (Bld)7.5 % NormalHocking Valley Community Hospital on above:Order Comment: Specimen Type: BLOOD SPECIMEN Ordering Facility: [facility] Address: [address] [place], [place] [address]Performed By: #### 24040-3, HSTNT, , 2776-07 #### [facility] CLIA [id number] [address] [place] [address] [place] AMERICANeutrophils (Bld) [#/Vol] 3.64 10*3/uLNormal1.45-7.50[facility] on above:Order Comment: Specimen Type: BLOOD SPECIMEN Ordering Facility: [facility] Address: [address] [place], [place] [address]Performed By: #### 41329-4, HSTNT, 07852-8, 2776-1 #### [facility] CLIA [id number] [address] [place] [address] [place] AMERICANeutrophils/100 WBC (Bld) 59.3 %NormalHocking Valley Community Hospital on above:Order Comment: Specimen Type: BLOOD SPECIMEN Ordering Facility: [facility] Address: [address] [place], [place] [address]Performed By: #### 11310-9, HSTNT, , 2776- #### [facility] CLIA [id number] [address] [place] [address] [place] AMERICANucleated RBC (Bld) [#/Vol] 10*3/uLNormal<0.01[facility] on above:Order Comment: Specimen Type: BLOOD SPECIMEN Ordering Facility: [facility] Address: [address] [place], [place] [address]Performed By: #### 33437-3, HSTNT, , 2776- #### [facility] CLIA [id number] [address] [place] [address] [place] AMERICANucleated RBC/100 WBC (Bld) [Ratio]0.0 /100 WBCNormalCKindred Hospital Dayton on above:Order Comment: Specimen Type: BLOOD SPECIMEN Ordering Facility: [facility] Address: [address] [place], [place] [address]Performed By: #### 43920-9, HSTNT, , 2776-1 #### [facility] CLIA [id number] [address] [place] [address] [place] AMERICAPlatelet mean volume (Bld) [Entitic vol]9.9 fLNormal9.0-12.7CKindred Hospital [facility] on above: Order Comment: Specimen Type: BLOOD SPECIMEN Ordering Facility: [facility] Address: [address] [place], [place] [address]Performed By: #### 52169-8, HSTNT, 43645-6, 2776-1 #### [facility] CLIA [id number] [address] [place] [address] [place] AMERICAPlatelets (Bld) [#/Vol]143 10*3/cAVll900-328PtxrbhygbHocking Valley Community Hospital on above:Order Comment: Specimen Type: BLOOD SPECIMEN Ordering Facility: [facility] Address: [address] [place], [place] [address]Performed By: #### 13420-7, HSTNT, , 2776- #### [facility] CLIA [id number] [address] [place] [address] [place] AMERICARBC (Bld) [#/Vol]3.71 10*6/uLLow3.90-5.20[facility] on above:Order Comment: Specimen Type: BLOOD SPECIMEN Ordering Facility: [facility] Address: [address] [place], [place] [address]Performed By: #### 60671-7, HSTNT, , 2776- #### [facility] CLIA [id number] [address] [place] [address] [place] AMERICAWBC (Bld) [#/Vol]6.14 10*3/uLNormal3.70-11.00[facility] on above:Order Comment: Specimen Type: BLOOD SPECIMEN Ordering Facility: [facility] Address: [address] [place], [place] [address]Performed By: #### 84778-6, HSTNT, , 2776-1 #### [facility] CLIA [id number] [address] STATES [facility] 55-04-7956ASLNGdlidh TextNoMercy Health St. Elizabeth Boardman HospitalCNon 07-97-7300MDXFFVD ID: [id number] Author: KSASY VERDE APRN.CARDIOPULMONARY TECHNOLOGIST Service: General Surgery Author Type: Nurse Practitioner [...] in the PACU and transferred to the [facility] for the remainder of her postoperative [...] mg) Tab Commonly know (more content not included)...NormalTri[facility] Magnesium SerPl-mCncon 54-31-2215Bhpfymgns [Mass/Vol]2.0 mg/dLNormal1.7-2.3 [facility] HospitalComment on above:Order Comment: Specimen Type: BLOOD SPECIMEN [facility]ing Facility[facility] Address: [address] [place], [place] [address]Performed By: #### 20714-9, 81197-5 #### [facility] CLIA [id number] [address] [place], [place] [address] [address] [place] AMERICAPT EDon [id number] EDHNO ID: [id number] Author: NOREEN RODNEY DTR Service: Nutrition Therapy Author Type: Mild Disabilities Teacher Type: Patient Education Filed: 07/26/2024 14:04 Note [...] DATE: July 26, 2024 TIME: 2:04 PM PAGER:NormalTrihealth Good Samaritan HospitalPhosphate SerPl-mCncon 18-02-2537Skogikfuf [Mass/Vol]2.5 mg/dLLow2.7-4.8CKettering Health [facility] Comment on above:Order Comment: Specimen Type: BLOOD SPECIMEN Ordering Facility: [facility] Address: [address] [place], [place] [address]Performed By: #### 18804-7, 33451-5 #### [facility] CLIA [id number] [address] [place] [address] [place] AMERICAHIGH SENSITIVITY TROPONIN T on 57-30-5914Mcgbuqnp T.cardiac High sensitivity method [Mass/Vol]12 ng/LHigh<12 [facility] HospitalComment on above:Order Comment: Specimen Type: BLOOD SPECIMEN Ordering Facility: [facility] Address: [address] [place], [place] [address]Performed By: #### 06963-3, 19631-4 #### [facility] CLIA [id number] [address] [place] [address] [place] AMERICAXR UPPER GI SINGLE CONTRAST on 39-03-0092WT UPPER GI SINGLE CONTRAST* * *Final Report* * * DATE OF [...] (min:sec). Air kerma: 38.9 mGy. 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 No dilated bowel in the [...] ESOPHAGEAL TRANSIT, LIKELY RELATED TO POSTOPERATIVE EDEMA. Bridge Worker: [facility] Transcribe Date/Time: Jul 25 2024 10:06A Dictated by : NAHID PACHECO MD This examination was interpreted and the report reviewed and electronically signed by: MARTHA CATALAN MD on Jul 25 2024 10:13AM EST [id number] Carmel Health System POSTPROC EVALon [id number] POSTPROC EVALHNO ID: [id number] Author: FLOR SNOW MD Service: ? Author Type: Physician Type: Anesthesia Postprocedure Evaluation Filed: 07/24/2024 15:38 Note Text: POST ANESTHESIA EVALUATION NOTE : 1950 Procedure Summary Date: 07/24/24 Room / Location: [place] [address] / [facility] Anesthesia Start: 1055 Anesthesia [...] July 24, 2024 TIME: 3:38 PM CSN: [id number]'s [facility] [place] PRE-OPon 14-28-2927YGVM PRE-OPHNO ID: [id number] Author: FLOR SNOW MD Service: ? Author Type: Physician Type: Anesthesia Preprocedure Evaluation Filed: 07/24/2024 09:16 Note Text: ANESTHESIOLOGY DAY OF SURGERY NOTE : 1950 Procedure Information Date/Time: 07/24/24 1051 Procedure: LAPAROSCOPIC RPR PARAESOPHAGEAL HERNIA W/O FUNDOPLASTY W/ MESH (Abdomen) Location: MAIN [facility] Surgeons: Xavier Boyd MD [...] and consent discussed: yes. Patient / Responsible Libertarian agrees to proceed: yes Patient / Surrogate [...] July 24, 2024 TIME: 9:15 AM CSN: [id number] Hospital OP NOTon [id number] OP NOTHNO ID: [id number] Author: YAN MOSER, ? Service: General Surgery Author Type: Physician Type: Brief Op Note Filed: 07/24/2024 14:16 Note Text: BRIEF OPERATIVE / PROCEDURE NOTE LOG ID: [id number] SURGERY/PROCEDURE DATE: 07/24/2024 INCISION/PROCEDURE START TIME: 11:37 AM INCISION CLOSE/PROCEDURE END TIME: 2:12 PM SURGEON(S)/PROCEDURALIST(S) AND COUTIERIER(S): Surgeons and Role: * Xavier Boyd MD [...] 24, 2024 TIME: 2:15 PM PAGER/CONTACT #: [phone] State University [facility] metabolic 2000 panelon 80-79-5252Skdqo gap [Moles/Vol]15 mmol/LNormal8-15 [facility] on above:Order Comment: Specimen Type: BLOOD SPECIMEN [facility]ing Facility[facility] Address: [address] [place], [place] [address]Performed By: #### 76954-0, HSTNT, , 2776-07 #### [facility] CLIA [id number] [address] [place] [address] [place] AMERICACalcium [Mass/Vol]9.3 mg/dL Normal8.5-10.2CKindred Hospital Dayton on above:Order Comment: Specimen Type: BLOOD SPECIMEN Ordering Facility: [facility] Address: [address] [place], [place] [address]Performed By: #### 56417-1, HSTNT, , 2776-07 #### [facility] CLIA [id number] [address] [place] [address] [place] AMERICAChloride [Moles/Vol]105 mmol/BPrxszt92-079HfdewsdvpHocking Valley Community Hospital on above:Order Comment: Specimen Type: BLOOD SPECIMEN [facility]ing Facility[facility] Address: [address] [place], [place] [address]Performed By: #### 62589-2, HSTNT, , 2776-07 #### [facility] CLIA [id number] [address] [place] [address] [place] AMERICACO2 [Moles/Vol]21 mmol/LLow 22-30[facility] on above:Order Comment: Specimen Type: BLOOD SPECIMEN Ordering Facility: [facility] Address: [address] [place], [place] [address]Performed By: #### 35599-7, HSTNT, , 2776-07 #### [facility] CLIA [id number] [address] [place] [address] [place] AMERICACreatinine [Mass/Vol]0.83 mg/dLNormal0.58-0.96[facility] on above:Order Comment: Specimen Type: BLOOD SPECIMEN Ordering Facility: [facility] Address: [address] [place], [place] [address]Performed By: #### 35029-0, HSTNT, , 2776-07 #### [facility] CLIA [id number] [address] [place] [address] [place] AMERICACreatinine and Glomerular filtration rate.predicted panel (S/P/Bld)75 mL/min/1.73m???Normal>=60[facility] on above:Order Comment: Specimen Type: BLOOD SPECIMEN Ordering Facility: [facility] Address: [address] [place], [place] [address]Result Comment: Estimated Glomerular Filtration Rate (eGFR) is calculated using the 2020 CKD-EPI cre atinine equation. This equation utilizes serum creatinine, sex, and age as parameters. The creatinine assay has traceable calibration to isotope dilution- mass spectrometry. Refer to KDIGO guidelines for clinical interpretation. In patients with unstable renal function, e.g. those with acute kidney injury, the eGFR may not accurately reflect actual GFR.Performed By: #### 79831-5, HSTNT, , 2776-07 #### [facility] CLIA [id number] [address] [place] [address] [place] AMERICAGlucose [Mass/Vol]171 mg/dL Qtfw48-89MuxlffpavHocking Valley Community Hospital on above:Order Comment: Specimen Type: BLOOD SPECIMEN Ordering Facility: [facility] Address: [address] [place], [place] [address]Result Comment: The [place] Diabetes Association (ADA) provides guidance for cutoff [...] Standards of Medical Care in Diabetes 2016, [place] [employer]. Diabetes Care. 2016.39(Suppl 1).Performed By: #### 75259-6, HSTNT, , 2776-07 #### [facility] CLIA [id number] [address] [place] [address] [place] AMERICAPotassium [Moles/Vol]4.0 mmol/LNormal3.7-5.1CKindred Hospital [facility] on above:Order Comment: Specimen Type: BLOOD SPECIMEN Ordering Facility: [facility] Address: [address] [place], [place] [address]Performed By: #### 53254-5, HSTNT, 2776-07 #### [facility] CLIA [id number] [address] [place] [address] [place] AMERICASodium [Moles/Vol]141 mmol/L Gkupsq614-147FddlwoyomHocking Valley Community Hospital on above:Order Comment: Specimen Type: BLOOD SPECIMEN Ordering Facility: [facility] Address: [address] [place], [place] [address]Performed By: #### 72454-9, HSTNT, , 2776-07 #### [facility] CLIA [id number] [address] [place] [address] [place] AMERICAUrea nitrogen [Mass/Vol]10 mg/dLNormal7-21[facility] ClevelandComment on above:Order Comment: Specimen Type: BLOOD SPECIMEN Ordering Facility: [facility] Address: [address] [place], [place] [address]Performed By: #### 68823-9, HSTNT, 74553-0, 2777-1 #### [facility] CLIA [id number] [address] [place] [address] [place] AMERICACB W Auto Differential panel (Bld)on 13-80-6133Zxipkcudy (Bld) [#/Vol]10*3/uLNormal<0.11CKindred Hospital [facility] on above:Order Comment: Specimen Type: BLOOD SPECIMEN Ordering Facility: [facility] Address: [address] [place], [place] [address]Performed By: #### 90418-7, 15261-3 #### [facility] CLIA [id number] [address] [place] [address] [place] AMERICABasophils/100 WBC (Bld)0.3 % NormalHocking Valley Community Hospital on above:Order Comment: Specimen Type: BLOOD SPECIMEN Ordering Facility: [facility] Address: [address] [place], [place] [address]Performed By: #### 52671-4, 04402-7 #### [facility] CLIA [id number] [address] [place] [address] [place] AMERICADifferential cell count method Nom (Bld)AutoNormalCKindred Hospital Dayton on above:Order Comment: Specimen Type: BLOOD SPECIMEN Ordering Facility: [facility] Address: [address] [place], [place] [address]Performed By: #### 38269-7, 14215-4 #### [facility] CLIA [id number] [address] [place] [address] [place] AMERICAEosinophils (Bld) [#/Vol] 10*3/uLNormal<0.46[facility] on above:Order Comment: Specimen Type: BLOOD SPECIMEN Ordering Facility: [facility] Address: [address] [place], [place] [address]Performed By: #### 83539-7, 69675-1 #### [facility] CLIA [id number] [address] [place] [address] [place] AMERICAEosinophils/100 WBC (Bld)0.0 %NormalHocking Valley Community Hospital on above:Order Comment: Specimen Type: BLOOD SPECIMEN Ordering Facility: [facility] Address: [address] [place], [place] [address]Performed By: #### 58047-9, 13464-4 #### [facility] CLIA [id number] [address] [place] [address] [place] AMERICAErythrocyte distribution width (RBC) [Ratio]13.9 %Byuckx47.5-15.0[facility] on above:Order Comment: Specimen Type: BLOOD SPECIMEN Ordering Facility: [facility] Address: [address] [place], [place] [address]Performed By: #### 39596-4, 79445-9 #### [facility] CLIA [id number] [address] [place] [address] [place] AMERICAHematocrit (Bld) [Volume fraction]38.8 %Nffxid24.0-46.0[facility] on above:Order Comment: Specimen Type: BLOOD SPECIMEN Ordering Facility: [facility] Address: [address] [place], [place] [address]Performed By: #### 81708-1, 81384-6 #### [facility] CLIA [id number] [address] [place] [address] [place] AMER[place]AHemoglobin (Bld) [Mass/Vol] 13.4 g/zQXojlja86.5-15.5CKindred Hospital Dayton on above:Order Comment: Specimen Type: BLOOD SPECIMEN Ordering Facility: [facility] Address: [address] [place], [place] [address]Performed By: #### 87490-7, 96680-4 #### [facility] CLIA [id number] [address] [place] [address] [place] OF AMERICAImmature granulocytes (Bld) [#/Vol]10*3/uLNormal<0.10[facility] on above:Order Comment: Specimen Type: BLOOD SPECIMEN Ordering Facility: [facility] Address: [address] [place], [place] [address]Performed By: #### 56233-6, 12697-3 #### [facility] CLIA [id number] [address] [place] [address] [place] AMERICAImmature granulocytes/100 WBC (Bld)0.3 %NormalHocking Valley Community Hospital on above:Order Comment: Specimen Type: BLOOD SPECIMEN Ordering Facility: [facility] Address: [address] [place], [place] [address]Performed By: #### 51039-7, 98814-9 #### [facility] CLIA [id number] [address] [place] [address] [place] OF AMERICALymphocytes (Bld) [#/Vol] 0.48 10*3/uLLow1.00-4.00[facility] on above:Order Comment: Specimen Type: BLOOD SPECIMEN Ordering Facility: [facility] Address: [address] [place], [place] [address]Performed By: #### 49557-1, 81679-7 #### [facility] CLIA [id number] [address] [place] [address] [place] OF AMERICALymphocytes/100 WBC (Bld)6.7 %NormalHocking Valley Community Hospital on above:Order Comment: Specimen Type: BLOOD SPECIMEN Ordering Facility: [facility] Address: [address] [place], [place] [address]Performed By: #### 63669-5, 33541-2 #### [facility] CLIA [id number] [address] [place], [place] [address]H (RBC) [Entitic mass]32.5 otMfened47.0-34.0[facility] on above:Order Comment: Specimen Type: BLOOD SPECIMEN Ordering Facility: [facility] Address: [address] [place], [place] [address]Performed By: #### 20911-9, 50875-0 #### [facility] CLIA [id number] [address] [place] [address] (RBC) [Mass/Vol]34.5 g/nSNodalj29.5-36.0[facility] on above:Order Comment: Specimen Type: BLOOD SPECIMEN Ordering Facility: [facility] Address: [address] [place], [place] [address]Performed By: #### 13797-0, 11092-5 #### [facility] CLIA [id number] [address] [place] [address] (RBC) [Entitic vol]94.2 eGWahnna10.0-100.0[facility] on above:Order Comment: Specimen Type: BLOOD SPECIMEN Ordering Facility: [facility] Address: [address] [place], [place] [address]Performed By: #### 85749-3, 36675-0 #### [facility] CLIA [id number] [address] [place], [place] [address]Monocytes (Bld) [#/Vol]0.23 10*3/uLNormal<0.87[facility] on above:Order Comment: Specimen Type: BLOOD SPECIMEN Ordering Facility: [facility] Address: [address] [place], [place] [address]Performed By: #### 71964-0, 97725-9 #### [facility] CLIA [id number] [address] [place] [address] [place] AMERICAMonocytes/100 WBC (Bld)3.2 % NormalHocking Valley Community Hospital on above:Order Comment: Specimen Type: BLOOD SPECIMEN Ordering Facility: [facility] Address: [address] [place], [place] [address]Performed By: #### 00051-5, 49784-4 #### [facility] CLIA [id number] [address] [place] [address] [place] AMERICANeutrophils (Bld) [#/Vol] 6.43 10*3/uLNormal1.45-7.50[facility] on above:Order Comment: Specimen Type: BLOOD SPECIMEN Ordering Facility: [facility] Address: [address] [place], [place] [address]Performed By: #### 78679-8, 35745-0 #### [facility] CLIA [id number] [address] [place] [address] [place] AMERICANeutrophils/100 WBC (Bld) 89.5 %NormalHocking Valley Community Hospital on above:Order Comment: Specimen Type: BLOOD SPECIMEN Ordering Facility: [facility] Address: [address] [place], [place] [address]Performed By: #### 82074-9, 93874-6 #### [facility] CLIA [id number] [address] [place] [address] [place] AMERICANucleated RBC (Bld) [#/Vol] 10*3/uLNormal<0.01[facility] on above:Order Comment: Specimen Type: BLOOD SPECIMEN Ordering Facility: [facility] Address: [address] [place], [place] [address]Performed By: #### 47653-5, 04922-6 #### [facility] CLIA [id number] [address] [place] [address] [place] AMERICANucleated RBC/100 WBC (Bld) [Ratio]0.0 /100 WBCNormalCKindred Hospital Dayton on above:Order Comment: Specimen Type: BLOOD SPECIMEN Ordering Facility: [facility] Address: [address] [place], [place] [address]Performed By: #### 68971-7, 85531-7 #### [facility] CLIA [id number] [address] [place], [place] [address] [place] OF AMERICAPlatelet mean volume (Bld) [Entitic vol]10.0 fLNormal9.0-12.7CKindred Hospital Dayton on above: Order Comment: Specimen Type: BLOOD SPECIMEN Ordering Facility: [facility] Address: [address] [place], [place] [address]Performed By: #### 98215-0, 67798-0 #### [facility] CLIA [id number] [address] [place] [address] [place] AMERICAPlatelets (Bld) [#/Vol]144 10*3/xRCar563-279SrsljjjdlHocking Valley Community Hospital on above:Order Comment: Specimen Type: BLOOD SPECIMEN Ordering Facility: [facility] Address: [address] [place], [place] [address]Performed By: #### 75559-4, 38506-2 #### [facility] CLIA [id number] [address] [place] [address] [place] AMERICARBC (Bld) [#/Vol]4.12 10*6/uLNormal3.90-5.20[facility] on above:Order Comment: Specimen Type: BLOOD SPECIMEN Ordering Facility: [facility] Address: [address] [place], [place] [address]Performed By: #### 56199-7, 71878-4 #### [facility] CLIA [id number] [address] [place] [address] [place] AMERICAWBC (Bld) [#/Vol]7.18 10*3/uLNormal3.70-11.00[facility] on above:Order Comment: Specimen Type: BLOOD SPECIMEN Ordering Facility: [facility] Address: [address] [place], [place] [address]Performed By: #### 54534-6, 55006-1 #### [facility] CLIA [id number] [address] [place] [address] [place] OF AMERICAHIGH SENSITIVITY TROPONIN T on 09-05-2233Ohwrastk T.cardiac High sensitivity method [Mass/Vol]8 ng/LNormal <12[facility] Samaritan HospitalComment on above:Order Comment: Specimen Type: BLOOD SPECIMEN Ordering Facility: [facility] Address: [address] [place], [place] [address]Performed By: #### 35045-2, HSTNT, 71337-0, 2777-1 #### [facility] IA [id number] [address] [place] [address] [place] AMERICAMagnesium SerPl-mCncon 75-98-2360Cinroicfu [Mass/Vol]1.7 mg/dLNormal1.7-2.3CKettering Health [facility] Comment on above:Order Comment: Specimen Type: BLOOD SPECIMEN Ordering Facility: [facility] Address: [address] [place], [place] [address]Performed By: #### 01938-7, HSTNT, , 2776- #### [facility] [place] [id number] [address] [place] [address] [place] OF AMERICAOPERATIVE NOon 07-24-2024 OPERATIVE NOHNO ID: [id number] Author: XAVIER BOYD MD Service: General Surgery Author Type: Physician Type: Operative Report Filed: 07/24/2024 14:31 Note Text: OPERATIVE/PROCEDURE REPORT LOG ID: [id number] SURGERY/PROCEDURE DATE: 07/24/2024 INCISION/PROCEDURE START TIME: 11:37 AM INCISION CLOSE/PROCEDURE END TIME: 2:12 PM SURGEON(S)/PROCEDURALIST(S) AND COUTIERIER(S): Surgeons and Role: * Xavier Boyd MD [...] the left and right subcostal regions. An entry level administrative assistant 5 mm trocar was placed [...] sutures to the left upper abdomen. The [place]ff[place] drain and liver retractor were removed. The [...] required to assist with this case. The entry level administrative assistant performed retraction and assisted with exposure. PRE-OP/PRE-PROCEDURE DIAGNOSIS: Type III paraesophageal hernia, symptomatic POST-OP/POST-PROCEDURE DIAGNOSIS: Same as Preop ESTIMATED BLOOD LOSS: 30 mls SPECIMENS: None IMPLANTABLE DEVICES: NONE DRAINS: None COMPLICATIONS: None CLOSURE TECHNIQUE: Primary PARTICIPATION IN SURGERY/PROCEDURE: I/primary surgeon/proceduralist performed the procedure with assistance. SIGNATURE: Xavier Boyd MD PATIENT NAME: Shey Obrien DATE: July 24, 2024 TIME: 2:27 PMNormalTrihealth Good Samaritan HospitalPhosphate SerPl-mCncon 07-24-2024 Phosphate [Mass/Vol]3.6 mg/dLNormal2.7-4.8CKettering Health DaytonComment on above:Order Comment: Specimen Type: BLOOD SPECIMEN Ordering Facility: [facility] Address: [address] [place], [place] [address]Performed By: #### 22386-5, HSTNT, 40336-6, 2777-1 #### [facility] CLIA [id number] [address] [place] [address] [place] AMERICAXR CHEST 2V FRONTAL/LATon 07-24-2024* * *Final Report* * * DATE OF [...] soft tissues: Unremarkable. IMPRESSION: Large hiatal hernia. Bridge Worker: [email or web address] Transcribe Date/Time: Jul 24 2024 7:28A Dictated by : JARVIS HUGO MD This examination was interpreted and the report reviewed and electronically signed by: JARVIS HUGO MD on Jul 24 2024 7:30AM EST [id number]^AGFA_IDC^SI^ACNCCFRadiology, Radiologist, MD - 07/24/2024 * * *Final [...] soft tissues: Unremarkable. IMPRESSION: Large hiatal hernia. Bridge Worker: [facility] [place] Transcribe Date/Time: Jul 24 2024 7:28A Dictated by : JARVIS HUGO MD This examination was interpreted and the report reviewed and electronically signed by: JARVIS HUGO MD on Jul 24 2024 7:30AM EST [id number]^AGFA_IDC^SI^ACN NOMS HealthcareXR CHEST 2V FRONTAL/LATOrdered By: Radiologist Radiology on 39-64-8025QZTX Healthcare Work Phone: cBC W Auto Differential panel (Bld)on 07-23-2024 Basophils (Bld) [#/Vol]0.04 10*3/uLNormal<0.11CKindred Hospital [facility] on above:Order Comment: Specimen Type: BLOOD SPECIMEN Ordering Facility: [facility] Address: [address] [place], [place] [address]Performed By: #### 56201-0, 88969-9 #### [facility] CLIA [id number] [address] [place] [address] [place] AMERICABasophils/100 WBC (Bld)0.8 % NormalHocking Valley Community Hospital on above:Order Comment: Specimen Type: BLOOD SPECIMEN Ordering Facility: [facility] Address: [address] [place], [place] [address]Performed By: #### 64200-5, 84330-0 #### [facility] CLIA [id number] [address] [place] [address] [place] AMERICADifferential cell count method Nom (Bld)AutoNormalCKindred Hospital Dayton on above:Order Comment: Specimen Type: BLOOD SPECIMEN Ordering Facility: [facility] Address: [address] [place], [place] [address]Performed By: #### 87499-3, 57987-5 #### [facility] CLIA [id number] [address] [place] [address] [place] AMERICAEosinophils (Bld) [#/Vol] 0.18 10*3/uLNormal<0.46[facility] on above:Order Comment: Specimen Type: BLOOD SPECIMEN Ordering Facility: [facility] Address: [address] [place], [place] [address]Performed By: #### 79915-5, 23377-8 #### [facility] CLIA [id number] [address] [place] [address] [place] AMERICAEosinophils/100 WBC (Bld)3.7 %NormalHocking Valley Community Hospital on above:Order Comment: Specimen Type: BLOOD SPECIMEN Ordering Facility: [facility] Address: [address] [place], [place] [address]Performed By: #### 21748-4, 32069-4 #### [facility] CLIA [id number] [address] [place] [address] [place] AMERICAErythrocyte distribution width (RBC) [Ratio]13.9 %Ugjnri37.5-15.0[facility] on above:Order Comment: Specimen Type: BLOOD SPECIMEN Ordering Facility: [facility] Address: [address] [place], [place] [address]Performed By: #### 55516-3, 05383-5 #### [facility] CLIA [id number] [address] [place] [address] [place] AMERICAHematocrit (Bld) [Volume fraction]39.0 %Bdyxuk92.0-46.0[facility] on above:Order Comment: Specimen Type: BLOOD SPECIMEN Ordering Facility: [facility] Address: [address] [place], [place] [address]Performed By: #### 66679-9, 09180-9 #### [facility] CLIA [id number] [address] [place] [address] [place] AMERICAHemoglobin (Bld) [Mass/Vol] 13.4 g/aGZbrszk91.5-15.5CKindred Hospital Dayton on above:Order Comment: Specimen Type: BLOOD SPECIMEN Ordering Facility: [facility] Address: [address] [place], [place] [address]Performed By: #### 27579-4, 48339-3 #### [facility] CLIA [id number] [address] [place] [address] [place] AMERICAImmature granulocytes (Bld) [#/Vol]10*3/uLNormal<0.10[facility] on above:Order Comment: Specimen Type: BLOOD SPECIMEN Ordering Facility: [facility] Address: [address] [place], [place] [address]Performed By: #### 03530-9, 89408-4 #### [facility] CLIA [id number] [address] [place] [address] [place] AMERICAImmature granulocytes/100 WBC (Bld)0.4 %NormalHocking Valley Community Hospital on above:Order Comment: Specimen Type: BLOOD SPECIMEN Ordering Facility: [facility] Address: [address] [place], [place] [address]Performed By: #### 26318-0, 58989-3 #### [facility] CLIA [id number] [address] [place] [address] [place] AMERICALymphocytes (Bld) [#/Vol] 2.00 10*3/uLNormal1.00-4.00[facility] on above:Order Comment: Specimen Type: BLOOD SPECIMEN Ordering Facility: [facility] Address: [address] [place], [place] [address]Performed By: #### 34342-7, 64165-9 #### [facility] CLIA [id number] [address] [place] [address] [place] AMERICALymphocytes/100 WBC (Bld) 41.3 %NormalHocking Valley Community Hospital on above:Order Comment: Specimen Type: BLOOD SPECIMEN Ordering Facility: [facility] Address: [address] [place], [place] [address]Performed By: #### 88894-6, 64433-7 #### [facility] CLIA [id number] [address] DES[id number] (RBC) [Entitic mass]32.5 gyEcxfwy33.0-34.0[facility] on above:Order Comment: Specimen Type: BLOOD SPECIMEN Ordering Facility: [facility] Address: [address] [place], [place] [address]Performed By: #### 07599-6, 52060-9 #### [facility] CLIA [id number] [address] [place] [address] (RBC) [Mass/Vol]34.4 g/fSMjwfau04.5-36.0[facility] on above:Order Comment: Specimen Type: BLOOD SPECIMEN Ordering Facility: [facility] Address: [address] [place], [place] [address]Performed By: #### 28622-3, 60548-7 #### [facility] CLIA [id number] [address] [place] [address] (RBC) [Entitic vol]94.7 aVAnwnfx07.0-100.0[facility] on above:Order Comment: Specimen Type: BLOOD SPECIMEN Ordering Facility: [facility] Address: [address] [place], [place] [address]Performed By: #### 16719-6, 07234-5 #### [facility] CLIA [id number] [address] [place] [address] [place] AMERICAMonocytes (Bld) [#/Vol]0.30 10*3/uLNormal<0.87[facility] on above:Order Comment: Specimen Type: BLOOD SPECIMEN Ordering Facility: [facility] Address: [address] [place], [place] [address]Performed By: #### 73225-1, 09287-4 #### [facility] CLIA [id number] [address] [place] [address] OF AMERICAMonocytes/100 WBC (Bld)6.2 % NormalGrubville Clinic ClevelandComment on above:Order Comment: Specimen Type: BLOOD SPECIMEN Ordering Facility: [facility] Address: [address] [place], [place] [address]Performed By: #### 04190-1, 23769-9 #### [facility] CLIA [id number] [address] [place] [address] [place] AMERICANeutrophils (Bld) [#/Vol] 2.30 10*3/uLNormal1.45-7.50[facility] on above:Order Comment: Specimen Type: BLOOD SPECIMEN Ordering Facility: [facility] Address: [address] [place], [place] [address]Performed By: #### 91673-6, 57091-1 #### [facility] CLIA [id number] [address] [place] [address] [place] AMERICANeutrophils/100 WBC (Bld) 47.6 %[facility] on above:Order Comment: Specimen Type: BLOOD SPECIMEN Ordering Facility: [facility] Address: [address] [place], [place] [address]Performed By: #### 74575-2, 13597-4 #### [facility] CLIA [id number] [address] [place] [address] [place] AMERICANucleated RBC (Bld) [#/Vol] 10*3/uLNormal<0.01[facility] on above:Order Comment: Specimen Type: BLOOD SPECIMEN Ordering Facility: [facility] Address: [address] [place], [place] [address]Performed By: #### 16051-8, 33159-6 #### [facility] CLIA [id number] [address] [place] [address] [place] AMERICANucleated RBC/100 WBC (Bld) [Ratio]0.0 /100 WBCNormalCKindred Hospital Dayton on above:Order Comment: Specimen Type: BLOOD SPECIMEN Ordering Facility: [facility] Address: [address] [place], [place] [address]Performed By: #### 34985-1, 22143-4 #### [facility] CLIA [id number] [address] [place] [address] [place] AMERICAPlatelet mean volume (Bld) [Entitic vol]10.2 fLNormal9.0-12.7CKindred Hospital Dayton on above: Order Comment: Specimen Type: BLOOD SPECIMEN Ordering Facility: [facility] Address: [address] [place], [place] [address]Performed By: #### 89325-3, 96669-4 #### [facility] CLIA [id number] [address] [place] [address] [place] AMERICAPlatelets (Bld) [#/Vol]169 10*3/oRWmxsrj221-321JxbjqomrhHocking Valley Community Hospital on above:Order Comment: Specimen Type: BLOOD SPECIMEN Ordering Facility: [facility] Address: [address] [place], [place] [address]Performed By: #### 11777-1, 10890-5 #### [facility] CLIA [id number] [address] [place] [address] [place] AMERICARBC (Bld) [#/Vol]4.12 10*6/uLNormal3.90-5.20[facility] on above:Order Comment: Specimen Type: BLOOD SPECIMEN Ordering Facility: [facility] Address: [address] [place], [place] [address]Performed By: #### 41408-4, 83672-7 #### [facility] CLIA [id number] [address] [place] [address] [place] AMERICAWBC (Bld) [#/Vol]4.84 10*3/uLNormal3.70-11.00[facility] on above:Order Comment: Specimen Type: BLOOD SPECIMEN Ordering Facility: [facility] Address: [address] [id number] By: #### 04478-0, 89383-4 #### [facility] CLIA [id number] [address] [facility] DESK F26PJIBPLRWLCASSANDRA [place] [id number] [facility]IALCC CBC W AUTO DIFF BLDon 53-23-0974Hmzluqegd/100 WBC (Bld)0.8 %[facility] BASOPHILS # BLD AUTO 0.04NIThompson Cancer Survival Center, [place], [facility] DIFFERENTIAL METHOD BLDAutoNOMS Cherrington HospitalF EOSINOPHIL # BLD AUTO0.18NIThompson [facility], [place] LYMPHOCYTES # BLD [id number] Health Truman Medical CenterF MONOCYTES # BLD AUTO0.3NIMilan General HospitalF NEUTROPHILS # BLD AUTO2.3NOUniversity Health Truman Medical CenterF NRBC # BLD AUTO<0.01NIThom[facility], [place] NRBC/100 WBC BLD-RTO0/100 WBCEastern Missouri State Hospital PLATELET # BLD [id number] Health Truman Medical CenterF PMV BLD AUTO10.2 fL9.0 - 12.7 fLEastern Missouri State Hospital WBC # BLD AUTO4.84NOMO HealthcareEosinophils/100 WBC (Bld)3.7 %[facility] HealthcareErythrocyte distribution width (RBC) [Ratio]13.9 %11.5 - 15.0 %[facility] HealthcareHematocrit (Bld) [Volume fraction]39 %36.0 - 46.0 %[facility] HealthcareHemoglobin (Bld) [Mass/Vol]13.4 g/dL 11.5 - 15.5 g/dLSullivan County Memorial Hospital GRANULOCYTES # BLD AUTO<0.03NISycamore [facility]als [facility], [place] GRANULOCYTES/LEUK NFR BLD AUTO0.4 %NOM HealthcareLymphocytes/100 WBC (Bld)41.3 %Research Medical CenterMCH (RBC) [Entitic mass]32.5 pg26.0 - 34.0 pgNOParkland Health CenterMCHC (RBC) [Mass/Vol]34.4 g/dL30.5 - 36.0 g/dLResearch Medical CenterMCV (RBC) [Entitic vol]94.7 fL80.0 - 100.0 fLNOParkland Health CenterMonocytes/100 WBC (Bld)6.2 % NOMS HealthcareNeutrophils/100 WBC (Bld)47.6 %NOMS HealthcareRBC (Bld) [#/Vol] 4.12 10*6/uL3.90 - 5.20 m/uLNOMS HealthcareSpecimen Type: BLOOD SPECIMEN Order[facility] Facility[facility] Address: [address] [place] [address] Original Ordering Provider: KATARZYNA DASILVAFreeman Orthopaedics & Sports MedicineF CONFIRM BLOOD TYPEon 78-85-0751WKQHTEHE HealthcareSpecimen Type: BLOOD SPECIMEN Ordering Facility: [facility] Address: [address] [place] [address] [facility] CLIA [id number] [address] [place] [address] TYPE AND SCREEN,30 DAYon 65-60-2851ZWTUDLJT HealthcareRh Nom (Bld)PositiveNOMO Healthcare Specimen Type: BLOOD SPECIMEN Ordering Facility: [facility] Address: [address] [place] [address] MAIN [facility] BANK CLIA [id number] [address] [place] [address] CONFIRM BLOOD TYPEon 29-82-9049XCJTNucseyQaovymrydOhioHealth Doctors Hospital on above:Order Comment: Specimen Type: BLOOD SPECIMEN Ordering Facility: [facility] Address: [address] [place], [place] [address]Performed By: #### 27587-3, HSTNT, , 2776- #### [facility] CLIA [id number] [address] [place], [place] [address]Rh Nom (Bld)PositiveNormal [facility] on above:Order Comment: Specimen Type: BLOOD SPECIMEN Ordering Facility: [facility] Address: [address] [place], [place] [address]Performed By: #### 51087-1, HSTNT, , 2776- #### [facility] CLIA [id number] [address] [place] [address] OF AMERICAABO group Nom (Bld)B [facility] Samaritan Hospitalprehensive metabolic 2000 panelon 31-12-9731Hscicqm [Mass/Vol]4.2 g/dLNormal3.9-4.9CKind[facility] on above:Order Comment: Specimen Type: BLOOD SPECIMEN Ordering Facility: [facility] Address: [address] [place], [place] [address]Performed By: #### 64647-5, 13351-3 #### [facility] CLIA [id number] [address] [place] [address] [place] AMERICA[place]P [Catalytic activity/Vol] 111 U/SJpdxdt36-523TxfbcvksrHocking [facility] on above:Order Comment: Specimen Type: BLOOD SPECIMEN Ordering Facility: [facility] Address: [address] [place], [place] [address]Performed By: #### 76387-3, 10251-1 #### [facility] CLIA [id number] [address] [place] [address] [place] [Catalytic activity/Vol] 26 U/LNormal7-38[facility] on above:Order Comment: Specimen Type: BLOOD SPECIMEN Ordering Facility: [facility] Address: [address] [place], [place] [address]Performed By: #### 93232-2, 94887-1 #### [facility] CLIA [id number] [address] [place] [address] [place] AMERICAAnion gap [Moles/Vol]10 mmol/LNormal8-15[facility] on above:Order Comment: Specimen Type: BLOOD SPECIMEN Ordering Facility: [facility] Address: [address] [place], [place] [address]Performed By: #### 65166-8, 09075-8 #### [facility] CLIA [id number] [address] [place] [address] [place] [Catalytic activity/Vol] 28 U/FJkewpf66-47HgltpgdsyHocking Valley [facility] Hospital on above:Order Comment: Specimen Type: BLOOD SPECIMEN Ordering Facility: [facility] Address: [address] [place], [place] [address]Performed By: #### 33172-4, 78025-9 #### [facility] CLIA [id number] [address] [place] [address] [place] AMERICABilirubin [Mass/Vol]0.5 mg/dLNormal0.2-1.3CKindred Hospital Dayton on above:Order Comment: Specimen Type: BLOOD SPECIMEN Ordering Facility: [facility] Address: [address] [place], [place] [address]Performed By: #### 81249-4, 28714-4 #### [facility] CLIA [id number] [address] [place] [address] [place] AMERICACalcium [Mass/Vol]9.4 mg/dL Normal8.5-10.2CKindred Hospital Dayton on above:Order Comment: Specimen Type: BLOOD SPECIMEN Ordering Facility: [facility] Address: [address] [place], [place] [address]Performed By: #### 09794-6, 86664-9 #### [facility] CLIA [id number] [address] [place] [address] [place] OF AMERICAChloride [Moles/Vol]108 mmol/JChbo81-116LfiryswllHocking Valley Community Hospital on above:Order Comment: Specimen Type: BLOOD SPECIMEN Ordering Facility: [facility] Address: [address] [place], [place] [address]Performed By: #### 10086-8, 04585-8 #### [facility] CLIA [id number] [address] [place] [address] [place] AMERICACO2 [Moles/Vol]23 mmol/L Lxpurh94-49ZmkagzmuvHocking Valley Community Hospital on above:Order Comment: Specimen Type: BLOOD SPECIMEN Ordering Facility: [facility] Address: [address] [place], [place] [address]Performed By: #### 57854-2, 27172-6 #### [facility] CLIA [id number] [address] [place] [address] [place] AMERICACreatinine [Mass/Vol]0.99 mg/dLHigh0.58-0.96[facility] on above:Order Comment: Specimen Type: BLOOD SPECIMEN Ordering Facility: [facility] Address: [address] [place], [place] [address]Performed By: #### 55271-5, 76106-9 #### [facility] [place] [id number] [address] [place] [address] [place] AMERICACreatinine and Glomerular filtration rate.predicted panel (S/P/Bld)61 mL/min/1.73m???Normal>=60[facility] on above:Order Comment: Specimen Type: BLOOD SPECIMEN Ordering Facility: [facility] Address: [address] [place], [place] [address]Result Comment: Estimated Glomerular Filtration Rate (eGFR) is calculated using the 2020 CKD-EPI cre atinine equation. This equation utilizes serum creatinine, sex, and age as parameters. The creatinine assay has traceable calibration to isotope dilution- mass spectrometry. Refer to KDIGO guidelines for clinical interpretation. In patients with unstable renal function, e.g. those with acute kidney injury, the eGFR may not accurately reflect actual GFR.Performed By: #### 21476-8, 43414-0 #### [facility] CLIA [id number] [address] [place] [address] [place] AMERICAGlucose [Mass/Vol]155 mg/dL Avzz93-13IudfxmmyfHocking Valley Community Hospital on above:Order Comment: Specimen Type: BLOOD SPECIMEN Ordering Facility: [facility] Address: [address] [place], [place] [address]Result Comment: The [place] Diabetes Association (ADA) provides guidance for cutoff [...] Standards of Medical Care in Diabetes 2016, [place] [employer] Association. Diabetes Care. 2016.39(Suppl 1).Performed By: #### 32842-9, 80093-8 #### [facility] CLIA [id number] [address] [place] [address] [place] AMERICAPotassium [Moles/Vol]4.3 mmol/LNormal3.7-5.1CKindred Hospital Dayton on above:Order Comment: Specimen Type: BLOOD SPECIMEN Ordering Facility: [facility] Address: [address] [place], [place] [address]Performed By: #### 33712-1, 32969-1 #### [facility] CLIA [id number] [address] [place] [address] [place] AMERICAProtein [Mass/Vol]6.9 g/dL Normal6.3-8.0[facility] on above:Order Comment: Specimen Type: BLOOD SPECIMEN Ordering Facility: [facility] Address: [address] [place], [place] [address]Performed By: #### 80575-9, 86960-8 #### [facility] CLIA [id number] [address] [place] [address] [place] AMERICASodium [Moles/Vol]141 mmol/L Rruqto601-003RqbkmgvwgHocking Valley Community Hospital on above:Order Comment: Specimen Type: BLOOD SPECIMEN Ordering Facility: [facility] Address: [address] [place], [place] [address]Performed By: #### 57967-3, 12798-0 #### [facility] CLIA [id number] [address] [place] [address] AMERICAUrea nitrogen [Mass/Vol]13 mg/dLNormal7-21[facility] HospitalCombeaumont hospital on above:Order Comment: Specimen Type: BLOOD SPECIMEN Ordering Facility: [facility] Address: [address] [place], [place] [address]Performed By: #### 58710-7, 92768-6 #### [facility] CLIA [id number] [address] [place] [address] OF [facility] MEMORIALECG COMPLETEon 22-38-2383VOK COMPLETEVentricular Rate : 66 BPM Atrial Rate : 66 BPM P-R Interval : 158 ms QRS Duration : 78 ms Q-T Interval : 404 ms QTC Calculation(Bazett) : 423 ms Calculated P [place] : 32 degrees Calculated R [place] : 14 degrees Calculated T [place] : 54 degrees NORMAL SINUS RHYTHM NORMAL ECG Confirmed by MD MCCLENDON HEBA ([id number]) on 07/29/2024 12:16:17 PM NAME : SHEY OBRIEN PID : [id number] : 1950 Gender : Female Race : ORD : [id number] Procedure Date : Jul 23 2024 12:08:10 Edit Date : Jul 29 2024 12:16:18 Diagnosis: NORMAL SINUS RHYTHM NORMAL ECG Confirmed by MD MCCLENDON HEBA ([id number]) on 07/29/2024 12:16:17 PM Test Reason : Location : 119 : A17 A17 Overread By : MD MCCLENDON HEBA Edited By : MD MCCLENDON HEBA Referred By : XAVIER BOYD Acquired by : Abel HAKettering Health DaytonHISTORY PHYSICALon 23-35-0306QFCRTOH PHYSICALHNO ID: [id number] Author: JAMIL DELACRUZ PA-C Service: ? Author Type: Physician Health Tech Type: H&P Filed: 07/23/2024 14:03 Note Text: [...] angina, anticoagulation therap (more content not included)... NormalPaulding County Hospitaltory - Blood bankon 16-71-3863Nu Nom (Bld) PositiveSt. Mary'S Medical Center, Ironton CampusNo Panel Informationon 00-71-2518Xsgymedqn ClinicPT panel Coag (PPP)on 91-48-5801SMJ Coag (PPP) [Relative time]1.1 {INR}Normal 0.9-1.3CKindred Hospital Dayton on above:Order Comment: Specimen Type: BLOOD SPECIMEN Ordering Facility: [facility] Address: [address] [place], [place] [address]Result Comment: Vitamin K Antagonist (VKA) Therapeutic Range: INR 2 to 3 (Target INR of 2.5) Note: For patients treated with VKA drugs, such as warfarin, the [place] [employer] 2012 Guideline recommends [...] Chest 2012, 141:7S-47S Keisha RA, et al. [facility] 2017, 70: 252-289Performed By: #### 27729-9, 25824-2 #### [facility] CLIA [id number] [address] [place], [place] [address]K [address] OF [facility] MEMORIALPT Coag (PPP) [Time]11.4 s Normal9.7-13.0[facility] on above:Order Comment: Specimen Type: BLOOD SPECIMEN Ordering Facility: [facility] Address: [address] [place], [place] [address]Performed By: #### 28902-1, 99181-4 #### [facility] CLIA [id number] [address] [place] [address] [place] OF AMERICATYPE AND SCREEN,30 DAYon 65-52-4207MKQBWczpyqWfiectgwpHocking Valley Community Hospital on above:Order Comment: Specimen Type: BLOOD SPECIMEN Ordering Facility: [facility] Address: [address] [place], [place] [address]Performed By: #### 32403-5, HSTNT, , 2776- #### [facility] CLIA [id number] [address] [place], [place] [address] [place] OF AMERICARh Nom (Bld)PositiveNormal [facility] on above:Order Comment: Specimen Type: BLOOD SPECIMEN Ordering Facility: [facility] Address: [address] [place], [place] [address]Performed By: #### 97068-2, HSTNT, , 2776- #### [facility] [place] [id number] [address] [place] [address] STATES OF AMERICAXR CHEST 2V FRONTAL/LATon 22-09-6474LX CHEST 2V FRONTAL/LAT* * *Final Report* * * DATE OF [...] soft tissues: Unremarkable. IMPRESSION: Large hiatal hernia. Bridge Worker: KODY Transcribe Date/Time: Jul 24 2024 7:28A Dictated by : JARVIS HUGO MD This examination was interpreted and the report reviewed and electronically signed by: JARVIS HUGO MD on Jul 24 2024 7:30AM EST [id number] Valley Hospitaliology Study observation (narrative)NOMS HealthcareaPTT PPPon 44-42-0081iMWG Coag (PPP) [Time]25.5 eUfvawk58.0-32.4CKindred Hospital Dayton on above:Order Comment: Specimen Type: BLOOD SPECIMEN Ordering Facility: [facility] Address: [address] [place], [place] [address]Performed By: #### 56554-3, 85810-1 #### [facility] CLIA [id number] [address] [place] [address] OF [facility] MEMORIALCNOVon 43-65-0933AHVWYuljfu Visit (GENSERGIO) SHEY OBRIEN ([id number]) 1950 F Date Time Provider Department 04/29/24 [...] No Yan Moser 04/29/2024 12:10 PM Signed [facility] Abdominal Core Health - HISTORY AND [...] Consents obtained Yan Moser MD [facility], Xavier Mayfield MD 04/29/2024 12:10 PM [...] the patient and discussed (more content not included)...NormalClermont County Hospital LUMBAR SPINE WO Jonah 04-22-[address] [address] Magnetic Resonance Report Signed Patient: SHEY OBRIEN MR#: [id number] : 1950 Acct:[id number] Age/Sex: 73 / F ADM Date: 04/22/24 Loc: MRI Attending Dr: Dimas Arguello M.D. Ordering Physician: Dimas Arguello M.D. Date of Service: 04/22/24 Procedure(s): MR lumbar spine wo con Accession Number(s): [id number] cc: Dimas Arguello M.D.; Latrell Jack M.D. [place] [address] Patient Name: SHEY OBRIEN MRN: [facility]:[id number] date: 1950 Sex: F Assigned Patient Location: MRI Current Patient Location: PM Accession/Order Number: [id number] Exam Date: 04/22/2024 07:45 Report Date: 04/22/2024 13:57 At the request of: DIMAS ARGUELLO Procedure: MR lumbar spine wo con [...] left foraminal stenosis Electronically authenticated by: WILLARD ANAND Date: 04/22/2024 13:57 Dictated By: Willard Anand M.D. Signed By: 04/22/241399 DD/ 1357 TD/TT: Bridge Worker:TBHRadiology, Radiologist, MD - 04/22/2024 [place] [address] Magnetic Resonance Report Signed Patient: SHEY OBRIEN MR#: [id number] : 1950 Acct:[id number] Age/Sex: 73 / F ADM Date: 04/22/24 Loc: MRI Attending Dr: Dimas Arguello M.D. Ordering Physician: Dimas Arguello M.D. Date of Service: 04/22/24 Procedure(s): MR lumbar spine wo con Accession Number(s): [id number] cc: Dimas Arguello M.D.; Latrell Jack M.D. The [place] [id number] Patient Name: SHEY OBRIEN MRN: [id number] date: 1950 Sex: F Assigned Patient Location: MRI Current Patient Location: Accession/Order Number: [id number] Exam Date: 04/22/2024 07:45 Report Date: 04/22/2024 13:57 At the request of: DIMAS ARGUELLO Procedure: MR lumbar spine wo con [...] left foraminal stenosis Electronically authenticated by: WILLARD ANAND Date: 04/22/2024 13:57 Dictated By: Willard Anand M.D. Signed By: 04/22/24 1400 DD/ 135 TD/TT: Bridge Worker: MARIANNE HealthcareRadiology Study observation (narrative)[facility] LUMBAR SPINE WO CONOrdered By: Radiologist Radiology on 25-28-2889L[facility]K [facility] Work Phone: XR FOOT RT MIN 3Von 04-22-[place], [place] [address] XRay Report Signed Patient: SHEY OBRIEN MR#: [id number] : 1950 Acct:[id number] Age/Sex: 73 / F ADM Date: 04/09/24 Loc: EC Attending Dr: Marnie Pemberton D.P.M. Ordering Physician: Marnie Pemberton D.P.M. Date of Service: 04/09/24 Procedure(s): XR foot RT min 3V Accession Number(s): [id number] cc: Marnie Pemberton D.P.M.; Latrell Jack M.D. [address] [address] Patient Name: SHEY OBRIEN MRN: [id number] date: 1950 Sex: F Assigned Patient Location: Current Patient Location: Accession/Order Number: [id number] Exam Date: 04/09/2024 09:34 Report Date: 04/10/2024 07:25 At the request of: MARNIE PEMBERTNO Procedure: XR foot RT min 3V PROCEDURE: [...] Negative. XR/XR foot RT min 3V IMPRESSION: Vyoo-yj-migvpuxl osteoarthritis Electronically authenticated by: WILLARD ANAND Date: 04/10/2024 07:25 Dictated By: Willard Anand M.D. Signed By: 04/10/24726 DD/ 4 TD/TT: Bridge Worker:ALLITAHRadiology, Radiologist, - 04/10/2024 [place] [address] XRay Report Signed Patient: SHEY OBRIEN MR#: [id number] : 1950 Acct:[id number] Age/Sex: 73 / F ADM Date: 04/09/24 Loc: EC Attending Dr: Marnie Pemberton D.P.M. Ordering Physician: Marnie Pemberton D.P.M. Date of Service: 04/09/24 Procedure(s): XR foot RT min 3V Accession Number(s): [id number] cc: Marnie Pemberton D.P.M.; Latrell Jack M.D. [place] [id number] Patient Name: SHEY OBRIEN MRN: [id number] date: 1950 Sex: F Assigned Patient Location: Current Patient Location: Accession/Order Number: [id number] Exam Date: 04/09/2024 09:34 Report Date: 04/10/2024 07:25 At the request of: MARNIE PEMBERTON Procedure: XR foot RT min 3V PROCEDURE: [...] Negative. XR/XR foot RT min 3V IMPRESSION: Njbg-fh-yimrwozl osteoarthritis Electronically authenticated by: WILLARD ANAND Date: 04/10/2024 07:25 Dictated By: Willard Anand M.D. Signed By: 04/10/24726 DD/ 4 TD/TT: Bridge Worker: NOMS HealthcareRadiology Study observation (narrative)[facility] HealthcareXR FOOT RT MIN 3VOrdered By: Radiologist Radiology on 26-88-7987MA[facility]I [facility] Work Phone: Surgical Pathology Reporton 16-48-3201U[place] [address]- Surgical Pathology Report Collected Date/Time: 03/20/2024 12:52 [...] is entirely submitted in one cassette. (DC) DC:[facility] Microscopic Description Microscopic examination performed unless gross only specified. The use of one or more reagents in the above tests is regulated as an analyte specific reagent (ASR). The test or tests are ordered following initial H&E microscopic examination. The performance characteristics were determined by the Laboratory of [facility]. They have not been cleared or approved by the US Food and Drug Administration. The FDA has determined that such clearance or approval is not necessary. These tests are used for clinical purposes. They should not be regarded as investigational or for research. Appropriate positive and negative controls are performed and are acceptable. [facility] Healthcare SystemComment on above:Performed By: #### [id number] #### [place] [facility] [address] [place], [place] [address]DA Esophaguson 73-34-8638JH EsophagusExam Date/Time: 03/26/2024 10:39 EDT Reason for Exam: [...] Ka,r in mGy = 15.80 DAP = 464.17[facility] SystemMain OR Intraoperative Recordon 18-13-3000Rgim OR Intraoperative RecordMain OR Intraoperative Record IntraOp Document Type FT Summary Primary Physician: Dafne Spears MD Finalized Date/Time: 03/22/24 14:46:15 Pt. Name: SHEY OBRIEN /Sex: 1950 Female Med Rec #: [id number] Physician: Dafne Spears MD Financial #: [id number] Pt. Type: O Room/Bed: / Admit/Disch: 03/20/24 [...] 3 Case Attendee Mariella JOHNSON, Catalina Ivory WELT STITCH CLEANER, Dafne Ferguson MD Role Performed KEYBOARD ACTION ASSEMBLER Scrub - Primary Surgeon - Primary Time In 03/20/24 12:44:00 03/20/24 12:44:00 03/20/24 12:44:00 Time Out 03/20/24 12:56:00 03/20/24 12:56:00 03/20/24 12:56:00 Procedure EGD(.) EGD(.) EGD(.) Comments Dr. Spears supervising procedure. Last Modified By: Mynor FORBES, Essence Shirley RN, RN, Kara N 03/22/24 14:45:45 03/20/24 12:56:36 03/20/24 12:56:36 Entry 4 Case Attendee Essnece Lopez RN Role Performed Director Re[facility] - Primary Time In 03/20/24 12:44:00 [...] and tissue Entry 1 Skin Integrity Intact, Walsh, Warm, & Skin Abnormality No Dry Outcomes [...] Leg Position Extended Positioning (more content not included)...Normal [facility] HospitalDischarge Instructionson 66-28-5244Jszphvqyy InstructionsDischarge Instructions SHEY OBRIEN :1950 Visit Date:03/20/2024 Inpatient [...] mg Tab) fluticasone nasal (Flonase 0.05 mg/inh [place]) losartan (losartan 25 mg Tab) multivitamin with [...] Follow Up with Yovanny OLIVO, SENAIT Sifuentes, [facility] When: Comments: Call for [...] Unchanged fluticasone nasal (Flonase 0.05 mg/ inh [place]) 2 Sprays Nasal Inhalation Every day Unchanged [...] called Helicobacterpylori (H. pylori). Other causes include: ? Long-term [...] and may get better (more content not included)...NormalFisher [facility] Medical CenterComment on above:Result Comment: Electronically Signed By: Kassy Barker\Date and Time Signed: 03/20/24 13:08 EDTInpatient Patient Summaryon 77-43-4790Tvyepwiyk Patient SummaryInpatient Patient Summary [place] [address] [facility] Clinical Discharge Instructions PERSON INFORMATION Name: SHEY OBRIEN [facility]#:[id number] PHYSICIANS Admitting Physician: Yovanny OLIVO, Dafne Torres [...] (at bedtime). fluticasone nasal (Flonase 0.05 mg/inh [place]) 2 Sprays Nasal Inhalation every day. losartan [...] day (at bedtime) as needed for sleep. Comment:[facility] SystemMain OR PACU I Recordon 00-88-3853Zwql OR PACU I RecordMain OR PACU I Record PACU Phase I Document Type FT Summary Primary Physician: Dafne Spears MD Finalized Date/Time: 03/20/24 13:37:02 Pt. Name: SHEY OBRIEN Tamie/Sex: 1950 Female Med Rec #: [id number] Physician: Dafne Spears MD Financial #: [id number] Pt. Type: O Room/Bed: / Admit/Disch: 03/20/24 [...] individualized perioperative plan of care The patient's rightto privacy is maintained The patient's value system, [...] with or improved from baseline levels established preoperativelyThe patient's cardiovascular status is consistent with or improved from baseline levels established preoperatively The patient's cardiovascular status is consistent with or improved from baseline levels established preoperatively The patient demonstrates and/or reports adequate pain control throughout the perioperative period The patient received appropriate medication(s), safely administered during the perioperativeperiod Acuity Level PACU I FT Entry 1 Start Time 03/20/24 12:58:00 Stop Time 03/20/24 13:28:00 Acuity Level Acuity Level I Last Modified By: Kassy Barker I 03/20/24 13:36:58 Finalized By: Kassy Barker I Document Signatures Signed By: Kassy Barker I 03/20/24 13:37NoMemorial Health System [facility] HospitalMain OR Preoperative Recordon 85-89-5596Hcfp OR Preoperative RecordMain OR Preoperative Record Holding Area Document Type FT Summary Primary Physician: Dafne Spears MD Finalized Date/Time: 03/20/24 11:17:32 Pt. Name: KARYNSHEY/Sex: 1950 Female Med Rec #: [id number] Physician: Dafne Spears MD Financial #: [id number] Pt. Type: O Room/Bed: / Admit/Disch: 03/20/24 [...] or her perioperative plan of care The patient'sright to privacy is maintained Surgery Checklist FT [...] Signatures Signed By: Essence Lopez RN 03/20/24 11:17NoMemorial Health System Sel[facility] HospitalOutpatient Surgery Discharge Instructionon 35-43-2966Ahdvldhshx Surgery Discharge InstructionOutpatient Surgery Discharge Instruction [place] [address] Patient Discharge Instructions PERSON INFORMATION Name: SHEY [...] to serve you. Thank you for choosing [facility] HERE ARE THE MEDICATION CHANGES THAT [...] (at bedtime). fluticasone nasal (Flonase 0.05 mg/inh [place]) 2 Sprays Nasal Inhalation every day. losartan [...] for sleep. PATIENT EDUCATION INFORMATION Instructions: Medication Leaflets:[facility] SystemProceduralon 03-20-2024 ProceduralProcedural Patient: SHEY OBRIEN Age: 73 years Sex: Female : 1950 Associated Diagnoses: None Author: Ganga OLIVO, Daquan Olea Postoperative Information Postoperative disposition: Postoperative disposition: To PACU. Optimetrix number: Optimetrix number [id number]. Anesthetic utilized: General. Health Status Allergies: Allergic [...] Discharge when meets criteria ( To home ).[facility] Healthcare SystemProceduralProcedural Patient: SHEY OBRIEN Age: 73 years Sex: [...] 1 tab, Oral, Daily Flonase 0.05 mg/inh [place]: 2 spray(s), Nasal, Daily, Refill(s) 0, Dry [...] a day (at bedtime) Flonase 0.05 mg/inh [place] 2 spray(s), Nasal, Daily losartan 25 mg [...] All Problems BMI 39.0-39.9,adult / SNOMED CT 834785364 / Confirmed Chronic obstructive pulmonary disease / SNOMED CT 07929434 / Confirmed Dyslipidemia / SNOMED CT 0709139862 / Confirmed Dysphagia / SNOMED CT 24697890 / Confirmed GERD (gastroesophageal reflux disease) / SNOMED CT 777177200 / Confirmed Hiatal hernia / SNOMED CT 199436239 / Confirmed HTN (hypertension) / SNOMED CT 5966441659 / Confirmed Insomnia / SNOMED CT 920184698 / Confirmed Lower extremity edema / SNOMED CT 685004823 / Confirmed Morbid obesity / SNOMED CT 132126067 / Confirmed EDWIN (obstructive sleep apnea) / SNOMED CT 388232700 / Confirmed Screening for malignant neoplasm of colon / SNOMED CT 553086541 / Confirmed Seasonal allergic rhinitis / SNOMED CT 582033869 / Confirmed TIA (transient ischemic attack) / SNOMED CT 869616025 / Confirmed Resolved: At risk for falls / SNOMED CT 563608031 Problem added when Risk for Falls Careplan was initiated. Resolved due to patient discharge. Resolved: Hernia / SNOMED CT 591601326 Resolved: Potential for deficient knowledge of cerebrovascular accident (CVA) / IMO 69231845 problem added based on Stroke Powerplan ordered. Resolved due to patient discharge. Resolved: Sleep apnea / SNOMED CT 461582479, Active Problems (14) BMI 39.0-39.9,adult Chronic obstructive pulmonary disease Dyslipidemia Dysphagia GERD (gastroesophageal reflux disease) Hiatal hernia HTN (hypertension) Insomnia Lower extremity edema Morbid obesity EDWIN (obstructive sleep apnea) Screening for malignant neoplasm of colon Seasonal allergic rhinitis TIA (transient ischemic (more content not included)...[facility] Healthcare SystemMR HEAD/BRAIN WO CONon 40-88-[place] [address] Magnetic Resonance Report Signed Patient: SHEY OBRIEN MR#: [id number] : 1950 Acct:[id number] Age/Sex: 73 / F ADM Date: 03/15/24 Loc: MRI Attending Dr: Diomedes Fitzgerald D.O. Ordering Physician: Diomedes Fitzgerald D.O. Date of Service: 03/15/24 Procedure(s): MR head/brain wo con Accession Number(s): [id number] cc: Diomedes Fitzgerald D.O.; Latrell Jack M.D. The [place] [id number] Patient Name: SHEY OBRIEN MRN: [id number] date: 1950 Sex: F Assigned Patient Location: MRI Current Patient Location: MRI Accession/Order Number: [id number] Exam Date: 03/15/2024 09:50 Report Date: 03/15/2024 12:12 At the request of: DIOMEDES FITZGERALD Procedure: MR head/brain wo con EXAM: MR [...] Signed By: 03/15/24 1215 DD/ 1212 TD/TT: Bridge Worker:LALITAHRadiology, Radiologist, MD - 03/15/2024 [place] [address] Magnetic Resonance Report Signed Patient: SHEY OBRIEN MR#: [id number] : 1950 Acct:[id number] Age/Sex: 73 / F ADM Date: 03/15/24 Loc: MRI Attending Dr: Diomedes Fitzgerald D.O. Ordering Physician: Diomedes Fitzgerald D.O. Date of Service: 03/15/24 Procedure(s): MR head/brain wo con Accession Number(s): [id number] cc: Diomedes Fitzgerald D.O.; Latrell Jack M.D. [place] [address] Patient Name: SHEY OBRIEN MRN: [facility]:[id number] date: 1950 Sex: F Assigned Patient Location: MRI Current Patient Location: MRI Accession/Order Number: [id number] Exam Date: 03/15/2024 09:50 Report Date: 03/15/2024 12:12 At the request of: DIOMEDES FITZGERALD Procedure: MR head/brain wo con EXAM: MR [...] Signed By: 03/15/24 1215 DD/ 1212 TD/TT: Bridge Worker: MARIANNE HealthcareRadiology Study observation (narrative)[facility] HEAD/BRAIN WO CONOrdered By: Radiologist Radiology on 60-91-6760OWYD [employer] Work Phone: aLL FOLIC ACIDon 54-87-4131ZENQDV42.60 ng/mL8.60 - 58.90 ng/mLNOMS HealthcareALL THYROID STIM HORMONEon 88-71-0971LFE Qn2.782 m[IU]/LNOMS HealthcareNo Panel Informationon 38-97-5024QFRJMPGOWLQEL Healthcare Ambulatory Visit Summaryon 92-23-3651Qjdeggnddp Visit SummaryAmbulatory Visit Summary SHEY OBRIEN :1950 Visit Date:02/26/2024 [...] mg Tab) fluticasone nasal (Flonase 0.05 mg/inh [place]) losartan (losartan 25 mg Tab) multivitamin with [...] Unchanged fluticasone nasal (Flonase 0.05 mg/ inh [place]) 2 Sprays Nasal Inhalation Every day Contact [...] 1 Tablets By Mouth Every day Contact prescribingphysician if questions or concerns Unchanged vitamin E [...] you for choosing us for your care. [facility] SystemGastroenterology Office/Clinic Noteon 03-75-3557Bdjhwnihcujqkuuv Office/Clinic NoteGastroenterology Office/Clinic Note Chief Complaint dysphagia HPI Staff [...] or gangrene) reports she had esophagram in [place] no egd in the past declined surgery [...] internal fixation, Tonsillectomy. Medications albuterol 0.083% Inh Mariln 3 mL aspirin 81 mg Oral EC Tab, 81 mg= 1 tab(s), Oral, Daily atorvastatin 40 mg Tab, 40 mg= 1 tab(s), Oral, Daily Calcium donepezil 5 mg Tab famotidine 40 mg Tab, 40 mg= 1 tab(s), Oral, Once a day (at bedtime) Flonase 0.05 mg/inh [place], 2 spray(s), Nasal, Daily losartan 25 mg [...] virus vaccine, inactivated 05/03/2022 Recorded SARS-CoV-2 (COVID-19) mRNAMUL.ORD![id number] 05/03/2022 Recorded influenza virus vaccine, inactivated 04/12/2021 [...] 05/10/2016 Recorded influenza virus vaccine, inactivated 04/16/2015 RecordedACMC Healthcare SystemComment on above:Result Comment: Electronically Signed By: Yovanny OLIVO, Dafne Torres\.br\Date and Time Signed: 02/26/24 09:38 EDTMM TOMOSYNTHESIS SCREENING BIon 80-65-[place] [address] Mammography Report Signed Patient: SHEY OBRIEN MR#: [id number] : 1950 Acct:[id number] Age/Sex: 73 / F ADM Date: 11/28/23 Loc: MAMMO Attending Dr: Latrell Jack M.D. Ordering Physician: Latrell Jack M.D. Results: Date of Service: 11/28/23 Follow Up: Procedure(s): MM tomosynthesis screening BI Accession Number(s): [id number] cc: Latrell Jack M.D. Patient Name: SHEY OBRIEN MR#: [id number] : 1950 Exam Date: 11/28/2023 Ordering Doctor: DR Latrell Jack . RADIOLOGY REPORT PROCEDURE: MM TOMOSYNTHESIS SCREENING [...] lung cancer at age 46. LOCATION: [facility] BREAST COMPOSITION: The breasts are almost [...] PALPABLE LUMP SHOULD BE BIOPSIED. Dictated by: Mehnaz Santiago M.D. on 11/28/2023 at 14:38 Approved by: Mehnaz Santiago M.D. on 11/28/2023 at 15:15 Dictated By: Mehnaz Santiago M.D. Signed By: 11/28/23 1516 DD/ 1515 TD/TT: Bridge Worker:TBHRadiology, Radiologist, - 11/28/2023 [place] [address] Mammography Report Signed Patient: SHEY OBRIEN MR#: [id number] : 1950 Acct:[id number] Age/Sex: 73 / F ADM Date: 11/28/23 Loc: MAMMO Attending Dr: Latrell Jack M.D. Ordering Physician: Latrell Jack M.D. Results: Date of Service: 11/28/23 Follow Up: Procedure(s): MM tomosynthesis screening BI Accession Number(s): [id number] cc: Latrell Jack M.D. Patient Name: SHEY OBRIEN MR#: [id number] : 1950 Exam Date: 11/28/2023 Ordering Doctor: [...] lung cancer at age 46. LOCATION: [facility] BREAST COMPOSITION: The breasts are almost [...] PALPABLE LUMP SHOULD BE BIOPSIED. Dictated by: Mehnaz Santiago M.D. on 11/28/2023 at 14:38 Approved by: Mehnaz Santiago M.D. on 11/28/2023 at 15:15 Dictated By: Mehnaz Santiago M.D. Signed By: 11/28/23 1516 DD/ 1515 TD/TT: Bridge Worker: MARIANNE [facility] HospitalRadiology Study observation (narrative)[facility] TOMOSYNTHESIS SCREENING BIOrdered By: Radiologist Radiology on 35-27-3072GSPQ [employer] Work Phone: IntraOperative Documentson 07-97-2060HprwsHzbwporli [id number]#1.00TIFFACMC Healthcare SystemConsenton 04-53-6901Mimvgic [id number]#1.00TIFChildren's Hospital of ColumbusDischarge Instructionson 33-50-4052Opjhrazsw Instructions [id number]#1.00TIFChildren's Hospital of ColumbusMain OR Intraoperative Recordon 88-61-8784Ubxh OR Intraoperative Record IntraOp Document Type FT Summary Primary Physician: Pa WEBB MD Finalized Date/Time: 10/16/23 09:46:21 Pt. Name: SHEY OBRIEN/Sex: 1950 Female Med Rec #: [id number] Physician: Pa WEBB MD Financial #: [id number] Pt. Type: O Room/Bed: / Admit/Disch: 10/13/23 [...] Gross Role Performed Anesthesiologist Surgeon - Primary Director [facility] [facility] - Primary Health Tech Time In 10/13/23 08:55:00 10/13/23 08:55:00 [...] and tissue Entry 1 Skin Integrity Intact, Walsh, Warm, and Skin Abnormality No Dry Outcomes [...] Points Checked Yes By Kimberly Infante RN Met? Yes Last Modified By: Remigio Infante RN (more content not included)...[facility] Healthcare SystemPostoperative Documentson 20-24-9591Ikgoebfhfease Documents [id number]#1.00TIFFNormalParkwood HospitalReminderson 80-91-4195Ublildisj From: Nhi Aguirre LPN To: N - Clinical; Sent: 10/16/2023 10:15:48 EDT Show up: 09/11/2033 07:00:00 EST Subject: colonoscopy recall Due Date/Time: 10/12/2033 07:00:00 EDT Reminder/Recall Patient due for screening colonoscopy 10/12/2033.[facility] Healthcare SystemColonoscopy Procedure Reporton 74-07-2290Djsqpehznya Procedure Report Patient: SHEY OBRIEN Age: 73 [...] extent examined. Images Procedure images: anal canal Rec1_hd_video_2023__05T08_15_11_706.jpg ileocecalvalve Rec1_hd_video_2023__05T08_14_31_512.jpg appendiceal orificie . Post-Procedure Complications: none. Estimated blood loss: none. Specimens: none. Devices/ implants: none left in place. Impression and Plan Diagnosis: Encounter for screening for malignant neoplasm of rectum (ATB08-CS Z12.12, Discharge, Medical). Course: Progressing as expected. Recommendations: Repeat colonoscopy:: In 10 years. Follow-up:: if problems/questions. Diet:: Regular diet. Medication resumption:: Continue current medications. Return to activities:: After 24 hours. Education and Follow-up: Counseled: Family.[facility] Comment on above:Other Comment: Missing Attachment - attachment storage system not supported [id number] Can be viewed in source systemMissing Attachment - attachment storage system not supported [id number] Can be viewed [facility] systemMissing Attachment - attachment storage system not supported [id number] Can be viewed in source systemMissing Attachment - attachment storage system not supported [id number] Can be viewed in source systemMissing Attachment - attachment storage system not supported [id number] Can be viewed in source systemConsent for Treatmenton 63-35-1751Snhbego for Treatment [id number]#1.00TIFFNoMemorial Health System Selby General HospitalDischarge Instructionson 96-77-4920Tfbuyrqsn Instructions SHEY OBRIEN :1950 Visit Date:10/13/2023 Inpatient [...] mg Tab) fluticasone nasal (Flonase 0.05 mg/inh [place]) losartan (losartan 25 mg Tab) multivitamin with [...] if needed Where: [address], [address] [place] [phone]- Business (1) Medications What How Much When [...] Unchanged fluticasone nasal (Flonase 0.05 mg/ inh [place]) 2 Sprays Nasal Inhalation Every day Unchanged [...] [facility] Your doctor may also give you [...] hours or as instru (more content not included)...[facility] Healthcare SystemComment on above:Result Comment: Electronically Signed By: Marcy FORDE, Mariaelena\.maikol\Date and Time Signed: 10/12/2408:33 EDTInpatient Patient Summaryon 33-81-9136Spqqekfxo Patient Summary [address] [address] [facility] Clinical Discharge Instructions PERSON INFORMATION Name: SHEY OBRIEN PHYSICIANS Admitting Physician: Pa WEBB MD Attending Physician: Pa WEBB MD PCP: GUERO OLIVO, LATRELL Discharge Diagnosis: Encounter for colorectal cancer screening; Encounter for screening for malignant neoplasm of rectum Comment: PATIENT EDUCATION INFORMATION Instructions: Medication Leaflets: Follow up: With: Address: When: Pa WEBB [address] [facility], [address], [employer] [address] [address] Business (1) , only if [...] (at bedtime). fluticasone nasal (Flonase 0.05 mg/inh [place]) 2 Sprays Nasal Inhalation every day. losartan [...] day (at bedtime) as needed for sleep. Comment:[facility] Healthcare SystemMain OR PACU I Recordon 23-27-1476Uwyk OR PACU I RecordPACU Phase I Document Type FT Summary Primary Physician: Pa WEBB MD Finalized Date/Time: 10/13/23 09:54:27 Pt. Name: SHEY OBRIEN /Sex: 1950 Female Med Rec #: [id number] Physician: Pa WEBB MD Financial #: [id number] Pt. Type: O Room/Bed: / Admit/Disch: 10/13/23 [...] individualized perioperative plan of care The patient's rightto privacy is maintained The patient's value system, [...] with or improved from baseline levels established preoperativelyThe patient's cardiovascular status is consistent with or improved from baseline levels established preoperatively The patient's cardiovascular status is consistent with or improved from baseline levels established preoperatively The patient demonstrates and/or reports adequate pain control throughout the perioperative period The patient received appropriate medication(s), safely administered during the perioperativeperiod [facility] Level PACU I FT Entry 1 Start Time 10/13/23 09:17:00 Stop Time 10/13/23 09:47:00 Acuity Level Acuity Level I Last Modified By: Mariaelena Vidal RN 10/13/23 09:54:26 Finalized By: Mariaelena Vidal RN Document Signatures Signed By: Mariaelena Vidal RN 10/13/23 09:54NoMemorial Health System Selby General HospitalMain OR Preoperative Recordon 09-85-0713Sqyb OR Preoperative RecordHolding Area Document Type FT Summary Primary Physician: Pa WEBB MD Finalized Date/Time: 10/13/23 08:06:06 Pt. Name: KARYNSHEY/Sex: 1950 Female Med Rec #: [id number] Physician: Pa WEBB MD Financial #: [id number] Pt. Type: O Room/Bed: / Admit/Disch: 10/13/23 [...] or her perioperative plan of care The patient'sright to privacy is maintained Surgery Checklist FT [...] Document Signatures Signed By: Trip Domínguez 10/13/23 08:06NormKindred Hospital LimaMonitor Recordon 48-05-8515Gukzmkj Record [id number]#1.00TIFFNoMemorial Health System Selby General HospitalMonitor [id number]#1.00TIFFNormal Parkwood HospitalOutpatient Surgery Discharge Instructionon 10-13-2023 Outpatient Surgery Discharge Instruction [place] [id number] Patient Discharge Instructions PERSON INFORMATION Name: SHEY [...] Signature Date Clinican/Nurse Signature Date Follow up: With: Address: When: Pa WEBB [address] [place] [address] [place], [address], [facility] [address] [place] [address] Business (1) , only if needed Pharmacy Information: You may receive a survey from [employer] [facility] asking you to rate your care experience. Your feedback is important and will help us understand what we do well and how we can improve the quality of care we provide to you, your loved ones and our community. It?s an honor to serve you. Thank you for choosing [facility] HERE ARE THE MEDICATION CHANGES THAT [...] (at bedtime). fluticasone nasal (Flonase 0.05 mg/inh [place]) 2 Sprays Nasal Inhalation every day. losartan [...] for sleep. PATIENT EDUCATION INFORMATION Instructions: Medication Leaflets:[facility] Healthcare SystemPatient Education - Texton 36-27-5351Gnohvjf Education - TextColonoscopy Care After Surgery Please read the instructions outlined below and refer to this sheet in the next few weeks. These discharge instructions provide you with general information on caring for [facility]. Your doctor may also give you [...] is severe or gets worse throughout the day.[facility] Healthcare SystemProgress Note-Physicianon 10-13-2023 Progress Note-PhysicianPatient: SHEY OBRIENN: 30-70-69 Age: 73 years Sex: Female : 1950 Associated Diagnoses: None Author: Shaji Bethea Jr., DO Postoperative Information Postoperative disposition: Postoperative disposition: Home. Optimetrix number: Optimetrix number [id number]. Anesthetic utilized: General. Physical Examination Vital Signs [...] to Ambulatory Surgery Unit, and To home ).[facility] Comment on above:Result Comment: Electronically Signed By: Shaji Bethea Jr., DO\.br\Date and Time Signed: 10/13/23 11:02 EDTProgress Note-PhysicianPatient: SHEY OBRIEN Age: 73 years Sex: Female [...] m2 Documented Medications Documented Flonase 0.05 mg/inh [place]: 2 spray(s), Nasal, Daily, Refill(s) 0, Dry [...] a day (at bedtime) Flonase 0.05 mg/inh [place] 2 spray(s), Nasal, Daily losartan 25 mg [...] All Problems BMI 39.0-39.9,adult / SNOMED CT 211076307 / Confirmed Chronic obstructive pulmonary disease / SNOMED CT 41437634 / Confirmed Dyslipidemia / SNOMED CT 7076799499 / Confirmed GERD (gastroesophageal reflux disease) / SNOMED CT 627927574 / Confirmed Hiatal hernia / SNOMED CT 151738777 / Confirmed HTN (hypertension) / SNOMED CT 9465454033 / Confirmed Insomnia / SNOMED CT 691830152 / Confirmed Lower extremity edema / SNOMED CT 998970084 / Confirmed Morbid obesity / SNOMED CT 448050547 / Confirmed EDWIN (obstructive sleep apnea) / SNOMED CT 921115716 / Confirmed Screening for malignant neoplasm of colon / SNOMED CT 419974510 / Confirmed Seasonal allergic rhinitis / SNOMED CT 777898180 / Confirmed TIA (transient ischemic attack) / SNOMED CT 311478787 / Confirmed Resolved: At risk for falls / SNOMED CT 302222229 Problem added when Risk for Falls Careplan was initiated. Resolved due to patient discharge. Resolved: Hernia / SNOMED CT 578931907 Resolved: Potential for deficient knowledge of cerebrovascular accident (CVA) / IMO 56966399 problem added based on Stroke Powerplan ordered. Resolved due to patient discharge. Resolved: Sleep apnea / SNOMED CT 070245364 Histories Past Medical History: Resolved Hernia (586752309): Resolved. Sleep apnea (306572270): Resolved. Procedure history: ORIF - Open reduction of fracture of ankle with internal fixation (739563401552813). Meniscal repair (867752635). Tonsillectomy (680349198). Hand tendon repaired (140931334). Social History Social & Psychosocial Habits Alcohol 09/12/2023 Frequency: 1-2 times per year Substance Abuse Comment: denies - 03/03/2021 07:19 - Carolyn Stewart RN 09/12/2023 Risk Assessment: Denies Substance Abuse Tobacco 09/12/2023 Tobacco Use: Former smoker, quit more Smokeless tobacco use: Never Type: Cigarettes . Physical Examination Vital Signs 10/13/2023 8:03 EDT Temperature Temporal Artery 36.3 DegC (more content not included)...[facility]MC Healthcare SystemComment on above: Result Comment: Electronically Signed By: Shaji Bethea Jr., DO\.maikol\Date and Time Signed: 10/13/23 08:04 EDTConsent for Procedure/Surgeryon 64-83-6875Azrgsph for Procedure/[id number]#1.00TIFFNormal Parkwood HospitalAmbulatory Visit Summaryon 24-90-2536Afbglhbrjv Visit Summary SHEY OBRIEN :1950 Visit Date:09/12/2023 Ambulatory Visit Instructions Your Diagnosis BMI 39.0-39.9,adult Your Care Team Attending Physician - TRACEY OLIVO, Pa Vivas Primary Care Physician - LATRELL JACK MD Referring Physician - LATRELL JCAK MD This Is Your Medications List Contact prescribing physician if questions or concerns aspirin (aspirin 81 mg Oral EC Tab) atorvastatin (atorvastatin 40 mg Tab) cholecalciferol (Vitamin D3 1000 intl units (25 mcg) Tab) famotidine (famotidine 40 mg Tab) fluticasone nasal (Flonase 0.05 mg/inh [place]) losartan (losartan 25 mg Tab) multivitamin with [...] Unchanged fluticasone nasal (Flonase 0.05 mg/ inh [place]) 2 Sprays Nasal Inhalation Every day Contact [...] 1 Tablets By Mouth Every day Contact prescribingphysician if questions or concerns Unchanged tiotropium (Spiriva HandiHaler 18 mcg inhalation capsule) 1 Capsules Inhalation Every dayContact prescribing physician if questions or concerns Unchanged [...] you for choosing us for your care. [facility] Healthcare SystemProvider Letteron 08-25-2023 Provider Letter August 25, 2023 SHEY OBRIEN [address] [place] [phone] : 1950 Dear Ms. Obrien, We have been trying to reach you with no success regarding a referral from Dr Jack. It is important that you return our call upon receiving this letter so that we can set up an appointment for youin either our [place] or [place] office. Also, at the time of your call, please provide us with your current demographic and insurance information. Thank you for your prompt attention to this matter. Sincerely, [facility] General Surgery [phone] Health System Selby General HospitalPhysician Referralon 08-15-2023 Physician [id number]#1.00TIFFACMC Healthcare SystemCT LUNG CANCER SCREENINGon 69-14-5196AS LUNG CANCER SCREENINGEXAMINATION: CT LUNG CANCER SCREENING HISTORY: Nicotine dependence [...] Electronically authenticated by: MEHNAZ SANTIAGO Date: 2022-07-28 15:28[facility]ier HospitalBNPon 14-76-7478Jvtvecuapyr peptide B (Bld) [Mass/Vol]108.0 pg/mLNormal<=900.0[facility] HospitalComment on above:Performed By: #### BMP, BNP, HSTROPN ####[facility] [address] [place] [address]Dr. Yilan ChangCBC AUTO DIFFon 29-92-2615FFFI #0.0 103/ulNormal0.0-0.1The [facility] HospitalComment on above:Performed By: #### CBC ####[facility] [address] [place], [place] [address]Dr.Yilan ChangBasophils/100 WBC (Bld)0.7 %Normal0.2-2.0The [facility] HospitalComment on above:Performed By: #### CBC ####[facility] [address] [place], [place] [address]Dr.Yilan ChangEO #0.1 103/ulNormal0.0-0.7The [facility] HospitalComment on above:Performed By: #### CBC ####[facility] [address] [place], [place] [address]Dr.Yilan ChangEosinophils/100 WBC (Bld)1.4 %Normal 0.9-7.0The [facility] HospitalComment on above:Performed By: #### CBC ####[facility] Eycqmll[address] [place], [place] [address]Dr.Felisa Trujillo Erythrocyte distribution width (RBC) [Ratio]13.2 %Zbrjld95.0-15.0The [facility] HospitalComment on above:Performed By: #### CBC ####[facility] [address] [place], [place] [address]Dr.Felisa TrujilloHematocrit (Bld) [Volume fraction]36.6 %Okudon05.0-48.0The [facility]wood HospitalComment on above:Performed By: #### CBC ####[facility] Rdx[address] [place], [place] [address]Dr.Krystakun TrujilloHemoglobin (Bld) [Mass/Vol]12.7 g/dL Yzwmgg85.0-16.0The [facility] HospitalComment on above:Performed By: #### CBC ####[facility] Abmhrdpj[address] [place], [place] [address]Dr. Felisa TrujilloIG #0.01 10e3/ulNormal0.00-0.03The [facility] HospitalComment on above: Performed By: #### CBC ####[facility] M[address]oz[address] [place], [place] [address]Dr.Felisa TrujilloIG %0.2 %Normal0.0-0.5The [facility] HospitalComment on above:Performed By: #### CBC ####[facility] Oaqznjjbit[address] [place], [place] [address]Dr.Felisa TrujilloLYMPH #1.0 103/ulCritically low1.2-3.8The [facility] HospitalComment on above:Performed By: #### CBC ####[facility] Itxxvknfie[address] [place], [place] [address]Dr.Krystakun TrujilloLymphocytes/100 WBC (Bld)22.3 %Bmczxi02.5-60.0The [facility] HospitalComment on above:Performed By: #### CBC ####[facility] Inspfmocai[address] [place], [place] [address]Dr.Krystakun TrujilloMANUAL DIFF REQ NONormalThe [facility] HospitalComment on above:Performed By: #### CBC ####[facility] [address] [place] [address]Dr. Felisa TrujilloH (RBC) [Entitic mass]31.8 egIriqyg91.7-34.0[facility] Comment on above:Performed By: #### CBC ####[facility] U[address]impjlur[address] [place], [place] [address]Dr.Felisa TrujilloMCHC (RBC) [Mass/Vol]34.7 g/dL Wmeimm02.9-35.2The [facility] HospitalComment on above:Performed By: #### CBC ####[facility] Ogkbuvtema[address] [place], [place] [address]Dr. Felisa TrujilloMCV (RBC) [Entitic vol]91.7 xHDibvky85.0-99.0The [facility] Comment on above:Performed By: #### CBC ####[facility] [address]fa[address]inv[address] [place], [place] [address]Dr.Felisa TrujilloMONO #0.5 103/ulNormal0.3-0.8 The [facility] HospitalComment on above:Performed By: #### CBC ####[facility] Jtyxpzljiy[address] [place], [place] [address]Dr.Felisa Trujillo Monocytes/100 WBC (Bld)11.7 %Normal1.7-12.0The [facility] HospitalComment on above:Performed By: #### CBC ####[facility] Vvxfivyikr[address] [place], [place] [address]Dr.Felisa TrujilloNEUT #2.7 103/ulNormal1.4-6.5The [facility] HospitalComment on above:Performed By: #### CBC ####[facility] Eznjugooez[address] [place], [place] [address]Dr.Felisa TrujilloNeutrophils/100 WBC (Bld)63.7 %Wdqufg35.0-75.0The [facility] HospitalComment on above:Performed By: #### CBC ####[facility] [address] [place], [place] [address]Dr.Felisa TrujilloPlatelet mean volume (Bld) [Entitic vol]10.2 fLNormal9.5-13.5 The [facility] HospitalComment on above:Performed By: #### CBC ####[facility] [address] [place] [address]Dr.Felisa TrujilloPLT149 103/ulCritically qux594-701Fav [facility] HospitalComment on above:Performed By: #### CBC ####[facility] [address] [place] [address]Dr.Felisa TrujilloRBC3.99 106/ulCritically low4.20-5.40The [facility] Comment on above:Performed By: #### CBC ####[facility] [address] [place] [address]Dr.Felisa TrujilloWBC4.3 103/ulNormal4.0-11.0The [facility] HospitalComment on above:Performed By: #### CBC ####[facility] [address] [place] [address]Dr.Felisa TrujilloCovid-19 PCR (CVDTBH)on 91-76-5495PICC-CoV-2 (COVID-19) RNA DUGLAS+probe Ql (Unsp spec)Detected Critically abnormalNOT DETECTEDThe [facility] HospitalComment on above:Result Comment: This test is not yet approved or cleared by the [place] FDA. When there are no FDA-approved or cleared tests available, and other criteria are met, FDA can make tests available under an emergency access mechanism called an Emergency Use Authorization (EUA). The EUA for this test is supported by the [employer] Repairer of Health and Human Service's declaration that circumstances exist to justify the emergency use of in vitro diagnostics for the detection and/or diagnosis of the virusthat causes COVID-19. This EUA will remain in effect for the duration of the COVID-19 declaration justifying emergency of IVDs, unless it is terminated or revoked by the FDA (after which the test mayno longer be used). Performed By: #### CVDTBH ####[facility] [address] [place] [address]Dr. Felisa RonniePROF CHEM 8 (BAS METB)on 02-22-2022 Anion gap [Moles/Vol]14.9 mmol/LNormalThe [facility] on above: Performed By: #### BMP, BNP, HSTROPN ####[facility] [address] [place] [address]Dr. Yilan ChangCalcium [Mass/Vol]8.9 mg/dLNormal 8.5-10.1[facility] on above:Performed By: #### BMP, BNP, HSTROPN ####[facility] [address] [place], [place] [address]Dr. Yilan ChangChloride [Moles/Vol]104 mmol/NQlwrdi39-012Kcg [facility] on above:Performed By: #### BMP, BNP, HSTROPN ####[facility] [address] [place], [place] [address]Dr. Yilan ChangCO2 [Moles/Vol]24.0 mmol/XNueldf95.0-32.0[facility] on above: Performed By: #### BMP, BNP, HSTROPN ####[facility] [address] [place], [place] [address]Dr. Yilan ChangCreatinine [Mass/Vol]0.98 mg/dL Normal0.55-1.02The [facility] on above:Performed By: #### BMP, BNP, HSTROPN ####[facility] [address] [place], [place] [address]Dr. Yilan ChangEGFR-AF BERMUDIAN>60Normal>=60The [facility] on above:Performed By: #### BMP, BNP, HSTROPN ####[facility] [address]ne[address] [place], [place] [address]Dr. Yilan ChangEGFR-NON AF KCJLRUND13 mL/min/1.07t9Lvhkwgjbup low>=60The [facility] on above:Performed By: #### BMP, BNP, HSTROPN ####[facility] [address] [place], [place] [address]Dr. Yilan ChangGlucose [Mass/Vol]136 mg/dLCritically pezx40-415Nwa Mando HospitalComment on above:Performed By: #### BMP, BNP, HSTROPN ####[facility] [address] [place] [address]Dr. Yilan ChangPotassium [Moles/Vol]3.9 mmol/LNormal3.5-5.1[facility] on above:Performed By: #### BMP, BNP, HSTROPN ####[facility] [address] [address]Dr. Yilan ChangSodium [Moles/Vol]139 mmol/XKxwzqx970-160Mkr [facility] on above: Performed By: #### BMP, BNP, HSTROPN ####[facility] [address] [address]Dr. Yilan ChangUrea nitrogen [Mass/Vol]14.0 mg/dL Normal7.0-18.0[facility] on above:Performed By: #### BMP, BNP, HSTROPN ####[facility] [address] [address]Dr. Yilan ChangUrea nitrogen/Creatinine [Mass ratio]14.3 mg/mgNormalThe [facility] on above:Performed By: #### BMP, BNP, HSTROPN ####[facility] [address] [address]Dr. Yilan ChangTROPONIN, HIGH SENSITIVITYon 95-83-3809CWHGZO2.9 pg/mLNormal4.0-51.3 [facility] on above:Result Comment: CUT-OFF POINTS HAVE BEEN ESTABLISHED BASED ON THE FOURTH UNIVERSAL DEFINITIONS OF MYOCARDIAL INFARCTION. THE UPPER REFERENCE LIMIT (URL) OF TROPONIN, DEFINED THE 99TH PERCENTILE OF cTnI DISTRIBUTION IN A REFERENCE POPULATION, HAS BEEN CONFIRMED THE DECISION THRESHOLD FOR HI DIAGNOSIS.Performed By: #### BMP, BNP, HSTROPN ####[facility] [address] [address]Dr. Yilan ChangXR CHEST 1 Von 71-37-8363YM CHEST 1 VEXAMINATION: XR CHEST 1 V HISTORY: COUGH , acute chest [...] Electronically authenticated by: MEHNAZ SANTIAGO Date: 2022-02-22 13:30[facility] HospitalMG M[facility] SCREEN 3D RONALD CADon 12-22-9983SE MAMM SCREEN 3D RONALD CAD Patient: SHEY OBRIEN Exam Date: 11/11/2021 : 1950 Gender:F Ordering : DR LATRELL JACK . Admission #: [id number] Family : Order #: [id number] CLICK HERE TO VIEW EXAM RADIOLOGY REPORT [...] lung cancer at age 46. LOCATION: [facility] BREAST COMPOSITION: Almost entirely fatty. FINDINGS: [...] by: Willard Anand MD on 11/11/2021 at 13:04[facility] HospitalBNP on 55-64-2269Nmavdjjbrlw peptide B (Bld) [Mass/Vol]42.0 pg/mLNormal<=900.0The [facility] HospitalComment on above:Performed By: #### HSTROPN, CMP, BNP #### [facility] [address] [address] [address] Felisa Casas AUTO DIFFon 13-63-6792ZLFL #0.1 103/ulNormal0.0-0.1The [facility] HospitalComment on above:Performed By: #### CBC #### [facility] [address] [address] [address] Felisa rTujilloBasophils/100 WBC (Bld)0.8 %Normal0.2-2.0[facility] Comment on above:Performed By: #### CBC #### [facility] [address] [place] [address] Dr. Felisa Bond #0.3 103/ulNormal0.0-0.7The [facility] HospitalComment on above: Performed By: #### CBC #### [facility] [address] [place] [address] Dr. Felisa Kamaraosinophils/100 WBC (Bld)3.9 %Normal0.9-7.0The [facility] Comment on above:Performed By: #### CBC #### [facility] [address] [place] [address] Dr. Felisa Kamararythrocyte distribution width (RBC) [Ratio]12.7 %Bqglfo53.0-15.0 [facility] HospitalComment on above:Performed By: #### CBC #### [facility] [address] [place] [address] Dr. Felisa TrujilloHematocrit (Bld) [Volume fraction]40.2 %Bywzux23.0-48.0The [facility] HospitalComment on above:Performed By: #### CBC #### [facility] [address] [place] [address] Dr. Felisa TrujilloHemoglobin (Bld) [Mass/Vol]13.6 g/vTUwxety30.0-16.0The [facility] HospitalComment on above:Performed By: #### CBC #### [facility] [address] [place] [address] Dr. Felisa Bryant #0.02 10e3/ulNormal0.00-0.03The [facility] on above:Performed By: #### CBC #### [facility] [address] [address] [address] Felisa Bryant %0.3 %Normal0.0-0.5[facility] on above: Performed By: #### CBC #### [facility] [address] [address] [address] Felisa Chavez #1.9 103/ulNormal1.2-3.8[facility] on above:Performed By: #### CBC #### [facility] [address] [place] [address] Dr. Felisa Tiwarihocytes/100 WBC (Bld)30.0 %Ruqekk33.5-60.0[facility]Com[facility] on above:Performed By: #### CBC #### [facility] [address] [place] [address] Dr. Felisa Early DIFF REQNONormalThe [facility] HospitalComment on above: Performed By: #### CBC #### [facility] [address] [place] [address] Dr. Felisa Mckinney (RBC) [Entitic mass]31.5 mnMmvtfx47.7-34.0[facility] on above:Performed By: #### CBC #### [facility] [address] [place] [address] Dr. Felisa Suarez (RBC) [Mass/Vol]33.8 g/hEIjcqtj85.9-35.2The [facility] on above:Performed By: #### CBC #### [facility] [address] [place] [address] Dr. Felisa Suarez (RBC) [Entitic vol]93.1 pTBixojo10.0-99.0[facility] on above:Performed By: #### CBC #### [facility] [address] [place] [address] Dr. Felisa Carmona #0.6 103/ulNormal0.3-0.8The [facility] HospitalComment on above:Performed By: #### CBC #### [facility] [address] [place] [address] Dr. Felisa Agueroocytes/100 WBC (Bld)8.5 %Normal1.7-12.0[facility] Comment on above:Performed By: #### CBC #### [facility] [address] [place] [address] Dr. Felisa Lira #3.7 103/ulNormal1.4-6.5The [facility] HospitalComment on above:Performed By: #### CBC #### [facility] [address] [place] [address] Dr. Felisa Corriganutrophils/100 WBC (Bld)56.5 %Swxktz17.0-75.0The [facility] HospitalComment on above:Performed By: #### CBC #### [facility] [address] [place] [address] Dr. Felisa Blanklet mean volume (Bld) [Entitic vol]9.9 fLNormal9.5-13.5The [facility] HospitalComment on above:Performed By: #### CBC #### [facility] [address] [place] [address] Dr. Felisa TrujilolPLT193 103/wvMvxajj451-582Cdg [facility] HospitalComment on above: Performed By: #### CBC #### [facility] [address] [place] [address] Dr. Felisa TrujilloRBC4.32 106/ulNormal4.20-5.40The [facility] HospitalComment on above:Performed By: #### CBC #### [facility] [address] [place] [address] Dr. Felisa TrujilloWBC6.5 103/ulNormal4.0-11.0The [facility] HospitalComment on above: Performed By: #### CBC #### [facility] [address] [place] [address] Dr. Felisa Tucker-19 PCR (CVDTB)on 66-66-3381SWIM-CoV-2 (COVID-19) RNA DUGLAS+probe Ql (Unsp spec)Not detectedNormalNOT DETECTEDThe [facility] Comment on above:Result Comment: When diagnostic testing is negative, the [...] for this test is supported by the [place] of Health and Human Service's declaration that circumstances exist to justify the emergency use of in vitro diagnostics for the detection and/or diagnosis of the virus that causes COVID-19. This EUA will remain in effect for the duration of the COVID-19 declaration justifying emergency of IVDs, unless it is terminated or revoked by the FDA (after which the test may no longer be used).Performed By: #### CVDTBH #### [facility] [address] [address] [address] Felisa TrujilloLACTATE/LACTIC ACIDon 90-66-7133Toxdbib [Moles/Vol]1.0 mmol/L Normal0.4-2.0The [facility] HospitalComment on above:Performed By: #### LACT ####[facility] [address] [address]DrMichelle TrujilloPH VENOUS BLOODon 39-13-2650CIM4 ONRIPF95.3 oyIoJxycbo51.0-52.0The [facility] HospitalComment on above:Performed By: #### PHVEN ####[facility] [address] [address]DrMichelle Roberto ChangpH VENOUS 7.431Critically high7.330-7.430The [facility] HospitalComment on above:Performed By: #### PHVEN ####[facility] [address] [address]Dr. Felisa TrujilloPROF 14(COMP METB)on 65-34-3098Krpiqql [Mass/Vol]4.1 g/dLNormal3.4-5.0The [facility] HospitalComment on above:Performed By: #### HSTROPN, CMP, BNP ####[facility] [address] [address]Dr. Yilan ChangAlbumin/Globulin [Mass ratio]1.1 {ratio}NormalThe [facility] HospitalComment on above:Performed By: #### HSTROPN, CMP, BNP ####[facility] [address] [address]Dr. Yilan ChangALP [Catalytic activity/Vol]120 U/LCritically hjqv86-494Gtw [facility] HospitalComment on above:Performed By: #### HSTROPN, CMP, BNP ####[facility] [address] [address]Dr. Yilan ChangALT [Catalytic activity/Vol]29 U/PBbgboc69-35Dkt [facility] HospitalComment on above: Performed By: #### HSTROPN, CMP, BNP ####[facility] [address] [place], [place] [address]Dr. Yilan ChangAnion gap [Moles/Vol]14.2 mmol/L NormalThe [facility] HospitalComment on above:Performed By: #### HSTROPN, CMP, BNP ####[facility] [address] [address]Dr. Yilan ChangAST [Catalytic activity/Vol]24 U/OFmjzgq78-32Kgt [facility] Comment on above:Performed By: #### HSTROPN, CMP, BNP ####[facility] [address] [address]Dr. Yilan ChangBilirubin [Mass/Vol]0.6 mg/dLNormal0.2-1.0The [facility] HospitalComment on above:Performed By: #### HSTROPN, CMP, BNP ####[facility] [address] [address]Dr. Yilan ChangCalcium [Mass/Vol]8.8 mg/dLNormal 8.5-10.1The [facility] HospitalComment on above:Performed By: #### HSTROPN, CMP, BNP ####[facility] [address] [address]Dr. Yilan ChangChloride [Moles/Vol]103 mmol/BDxndtx83-300Fcw [facility] Comment on above:Performed By: #### HSTROPN, CMP, BNP ####[facility] [address] [address]Dr. Yilan ChangCO2 [Moles/Vol] 25.3 mmol/SKyctgs87.0-32.0The [facility] HospitalComment on above:Performed By: #### HSTROPN, CMP, BNP ####[facility] [address] [place], [place] [address]Dr. Yilan ChangCreatinine [Mass/Vol]0.86 mg/dLNormal 0.55-1.02The [facility] Hospitalment on above:Performed By: #### HSTROPN, CMP, BNP ####[facility] [address] [place], [place] [address]Dr. Yilan ChangEGFR-AF BERMUDIAN>60Normal>=60The [facility] Hospitalment on above: Performed By: #### HSTROPN, CMP, BNP ####[facility] [address] [place], [place] [address]Dr. Yilan ChangEGFR-NON AF BERMUDIAN>60Normal>=60 The [facility] Hospitalment on above:Performed By: #### HSTROPN, CMP, BNP ####[facility] [address] [address]Dr. Yilan ChangGlobulin (S) [Mass/Vol]3.6 g/dLNormalThe [facility] HospitalComment on above:Performed By: #### HSTROPN, CMP, BNP ####[facility] [address] [place], [place] [address]Dr. Yilan ChangGlucose [Mass/Vol]90 mg/dL Fywgjg29-055Wdn [facility] Hospitalment on above:Performed By: #### HSTROPN, CMP, BNP ####[facility] [address] [address]Dr. Felisa ChangPotassium [Moles/Vol]3.5 mmol/LNormal3.5-5.1The [facility] HospitalComment on above:Performed By: #### HSTROPN, CMP, BNP ####[facility] [address] [address]Dr. Felisa Trujillo Protein [Mass/Vol]7.7 g/dLNormal6.1-8.2The [facility] HospitalComment on above: Performed By: #### HSTROPN, CMP, BNP ####[facility] [address] [address]Dr. Felisa ChangSodium [Moles/Vol]139 mmol/LNormal 136-145The [facility] HospitalComment on above:Performed By: #### HSTROPN, CMP, BNP ####[facility] [address] [address]Dr. Felisa ChangUrea nitrogen [Mass/Vol]13.0 mg/dLNormal7.0-18.0[facility] Comment on above:Performed By: #### HSTROPN, CMP, BNP ####[facility] [address] [address]Dr. Krystalan ChangUrea nitrogen/Creatinine [Mass ratio]15.1 mg/mgParkview Health Montpelier HospitalComment on above:Performed By: #### HSTROPN, CMP, BNP ####[facility] [address] [address]Dr. Felisa ChangPROTIMEon 12-38-9320ZOF Coag (PPP) [Relative time]0.99 {INR}NormalThe [facility] HospitalCombeaumont hospital on above: Performed By: #### PTT, PT #### [facility] [address] [address] [address] Felisa Lake GUIDELINESSEE BELOWParkview Health Montpelier HospitalComment on above:Result Comment: DESIRED INR: 2.0 - 3.0 CONDITIONS NOT LISTED BELOW 2.5 - 3.5 FOR PROSTHETIC HEART VALVE REPLACEMENT 2.5 - 3.5 RECURRENT THROMBOSIS Performed By: #### PTT, PT #### [facility] [address] [address] [address] Felisa Hummel Coag (PPP) [Time]10.7 sNormal9.0-11.6The [facility] Comment on above:Performed By: #### PTT, PT #### [facility] [address] [address] [address] Felisa Kahn 65-60-7887fMQZ Coag (Bld) [Time]25.9 rTtscrb88.3-36.2The [facility] HospitalComment on above:Performed By: #### PTT, PT #### [facility] [address] [place] [address] Dr. Felisa Romo, HIGH SENSITIVITYon 11-88-1090WNNOPK3.7 pg/mLNormal 4.0-51.3The [facility] HospitalComment on above:Result Comment: CUT-OFF POINTS HAVE BEEN ESTABLISHED BASED ON THE FOURTH UNIVERSAL DEFINITIONS OF MYOCARDIAL INFARCTION. THE UPPER REFERENCE LIMIT (URL) OF TROPONIN, DEFINED THE 99TH PERCENTILE OF cTnI DISTRIBUTION IN A REFERENCE POPULATION, HAS BEEN CONFIRMED THE DECISION THRESHOLD FOR HI DIAGNOSIS.Performed By: #### HSTROPN, CMP, BNP #### [facility] [address] [place] [address] Dr. Felisa TrujilloCovid-19 PCR (CVDSHRINERS CHILDREN'S)on 43-07-3492VUFC-CoV-2 (COVID-19) RNA DUGLAS+probe Ql (Unsp spec)Not detectedNormalNOT DETECTEDThe [facility] Comment on above:Result Comment: This test is not yet approved or cleared by the [place] FDA. When there are no FDA-approved or cleared tests available, and other criteria are met, FDA can make tests available under an emergency access mechanism called an Emergency Use Authorization (EUA). The EUA for this test is supported by the [place] of Health and Human Service's (HHS's) declaration that circumstances exist to justify the emergency use of in vitro diagnostics for the detection and/or diagnosis of the virus that causes COVID- 19. This EUA will remain in effect (meaning [...] of clinical signs and symptoms consistent with SARS-CoV-2.Performed By: #### CVDTBH #### [facility] [address] [place], [place] [address] Dr. Felisa TrujilloXR CHEST 2 Von 19-02-5659BP CHEST 2 VEXAMINATION: XR CHEST 2 V HISTORY: Chronic obstructive lung disease [...] Electronically authenticated by: MEHNAZ SANTIAGO Date: 2021-09-02 14:39NoOhioHealth Grady Memorial HospitalLab - AP Resultson 15-25-8195Yef - AP Results [id number]#1.00OTGTIFFCleveland Clinic Lutheran Hospital Pathology Sendout Teston 11-39-3906Fxznewgvl Send Out.See ReportCleveland Clinic Lutheran HospitalComment on above:Order Comment: left ring finger , cyst tendon sheath Performed By: #### [id number] ####[facility] (DEFAULT)[address] [place], [place] [address]Sftogl Summaryon 64-43-3435Hvmimk SummaryCODING DATE: 02/08/[address] [facility] STATUS: Home PAYOR: Medicare MC APC DESCRIPTION 5112 Level 2 Musculoskeletal Procedures ADMIT DX: REASON FOR VISIT DX: M65.342 Trigger finger, left ring finger FINAL DX: PRINCIPAL: M65.342 Trigger finger, left ring finger SECONDARY: M67.442 Ganglion, left hand J44.9 Chronic obstructive pulmonary disease, unspecified PYMT PROC APC STAT DESCRIPTION DOCTOR NAME DATE 68116 5112 J1 Excision of lesion of Daquan Anutnez And 02/04/2019 tendon sheath or joint capsule [...] By: Cassy Bradley Date Saved: 02/08/2019 11:52 [facility] HospitalConsent Formson 02-05-2019 Consent [id number]#1.00OTProMedica Toledo HospitalDischarge Instructionson 99-36-5749Mramliigg Instructions [id number]#1.00[facility] History and Physicalon 00-19-0863Uhrzfbh and Physical [id number]#1.00OTProMedica Toledo HospitalMAGR Intraoperative Recordon 07-55-7454MHBZ Intraoperative RecordMAGR Intra-Op Record Summary Primary Physician: Daquan Antunez DO Finalized Date/Time: 02/05/19 07:41:01 Pt. Name: SHEY OBRIEN/Sex: 1950 FEMALE Med Rec #: [id number] Physician: Daquan Antunez DO Financial #: [id number] Pt. Type: D Room/Bed: / Admit/Disch: 02/04/19 [...] Performed Surgeon - Primary Anesthesiologist of [facility] Record Time In 02/04/19 15:31:00 02/04/19 15:31:00 02/04/19 15:31:00 Time Out 02/04/19 16:08:00 02/04/19 16:08:00 02/04/19 16:08:00 Procedure Trigger Finger Release Trigger Finger Release Trigger Finger Release Last Modified By: Toshia Plascencia RN, Barbara RN Long, Barbara RN 02/04/19 16:16:05 02/04/19 16:16:05 02/04/19 16:16:05 Entry 4 Entry 5 Case Attendee Paloma Esparza Regina CST Role Performed Scrub Personnel Technical Maintenance Technician Time In 02/04/19 15:31:00 02/04/19 15:31:00 [...] Performs skin preparation Im.270.1 Implements protective measures toprevent skin and tissue injury due to chemical [...] Modify Pick List 02/05/19 07:38 MHBLONG Modify [facility] List 02/05/19 07:40 MHBLONG Modify [facility] HospitalMedication Managementon 43-80-6176Xqelnffkpl Management [id number]#1.00[facility] Provider Orderson 57-05-1869Awirpdbv Orders [id number]#1.00[facility] Anesthesia Noteon 73-00-5926Babpekcnai NotePatient: SHEY OBRIEN Age: 68 years Sex: FEMALE [...] Problems Chronic back pain / SNOMED CT 833392287 / Confirmed Former smoker / SNOMED CT 13287133 / Confirmed GERD (gastroesophageal reflux disease) / SNOMED CT 389434100 / Confirmed Scar tissue / SNOMED CT 123059762 / Confirmed Sleep apnea / SNOMED CT 097706760 / Confirmed Histories Family History: No family history items have been selected or recorded. Procedure history: Tonsillectomy (793652615). Epidural injection of lumbar spine using fluoroscopic guidance (3369722004). Social History Alcohol Assessment Use: Current. Beer, [...] rhythm. Review / Management Laboratory Results Plan [place] [employer] Anesthesiologists#(ASA) physical status classification: Class III. Anesthetic Preoperative Plan Anesthesia: Monitored anesthesia care. Anesthetic plan, risks, benefits, and alternatives discussedwith the patient and/or family. Patient verbalized understanding. Informed consent was given. Consent was signed by the patient. Communication: face to face with patient 10 minutes. Anesthetic technique: Monitored anesthesia care. [Electronically Signed on: 02/04/2019 15:44 EDT] Alirio Mcclellan MD [Verified on: 02/04/2019 15:44 EDT] Alirio Mcclellan MDCleveland Clinic Lutheran HospitalInpatient Patient Summaryon 02-04-2019 [place] [address] Patient Discharge Instructions Name: SHEY OBRIEN : 52 Patient Address: [address] [place] [address] Primary Care Provider: Name: LATRELL JACK After you are discharged if you find you have any questions, please, call [phone] ext [phone] to speak to a nurse. Discharge Diagnosis: Trigger finger Prescription Information: If you have been given a prescription for narcotics, seek immediate medical attention if you have any difficulty breathing or any sudden status changes such as confusion andsleepiness. If you or anyone you know is experiencing suicidal thoughts, mental health, alcohol and/or drug addiction problems; contact the [facility] 30/01 Crisis Hotline -Text 4HZUQ to 248459. If you received any narcotics, sedation, or [...] business decisions or sign any legal documents [facility] would like to thank you for allowing us to assist you with your healthcare needs.The following includes patient education materials and information regarding your injury/illness. SHEY OBRIEN has been given the following list of follow-up instructions, prescriptions, andpatient education materials: Follow-up Instructions With: Address: When: Daquan Antunez [address], [address] [place], [place] [address] Business (2) 02/12/2019 2:00 PM With: Address: When: LATRELL JACK [facility] [place], [place] [id number] Business (1) Medications During the course of [...] oral capsule) 1 cap(s) Oral every day. fexofenadine-pseudoephedrine (Simi-D 24 Hour Allergy & Congestion 180 mg-240 mg oral tablet,extended release) 1 tab(s) Oral every day. pantoprazole [...] oral capsule) 1 cap(s) Oral every day. fexofenadine-pseudoephedrine (Simi-D 24 Hour Allergy & Congestion 180 mg-240 mg oral tablet,extended release) 1 tab(s) Oral every day. pantoprazole [...] hours after surgery and apply an ice bagat intervals for the first 24 hours -Wiggle the unaffected fingers frequently while awake -DO NOT lift heavy objects or professor of surgery forcefully with the affected hand -DO NOT remove the dressing. This will be done at your first post operative visit at the office. Ifthe outer wrap/bandage is too tight, you may loosen it. -Keep the dressing clean and dry -You may shower in 1 day but DO NOT get the dressing wet -If you have any questions or concerns, please call the office at [phone] or go to the emergency room -Follow [...] Centers for Disease Control and Prevention March 2014[facility] MAGR Postoperative Recordon 43-20-0024RYWM Postoperative RecordMAGR Phase II Record Summary Primary Physician: Daquan Antunez DO Finalized Date/Time: 02/04/19 17:11:50 Pt. Name: SHEY OBRIEN/Sex: 1950 FEMALE Med Rec #: [id number] Physician: Daquan Antunez DO Financial #: [id number] Pt. Type: D Room/Bed: / Admit/Disch: 02/04/19 11:44:00 - 02/04/19 17:05:00 Institution: Phase II Case Times MAGR Pre-Care Text: Patient is free from s/s of injury. Patient remains free from compromised physical state related tosurgery or anesthesia. Patient comfort maintained. Patient/family verbalize [...] Signatures Signed By: Jamil Garibay RN 02/04/19 17:11[facility] Preoperative Recordon 97-25-0155CYZV Preoperative RecordMA Pre-Op Record Summary Primary Physician: Daquan Antunez DO Finalized Date/Time: 02/04/19 15:37:19 Pt. Name: SHEY OBRIEN NORMAN /Sex: 1950 FEMALE Med Rec #: [id number] Physician: Daquan Antunez DO Financial #: [id number] Pt. Type: D Room/Bed: / Admit/Disch: 02/04/19 [...] ready for surgery. The patient remains free froms/s of injury. Patient/family express understanding of plan of care and participate in decisions affectinghis or her perioperrative plan of care. Allergies documented appropriately. Patient identifiers and consent correct. General Comments: Pt arrives per amb. Pt denies any CP, SOb, Hx of S/S of flu. pt states has sleep apnea and wears CPAP at night. Finalized By: Toshia Plascencia RN Document Signatures Signed By: Toshia Plascencia RN 02/04/19 15:37[facility] HospitalOperative Report - Surgeon/Physicianon 78-76-6508Mwqulpgvd Report - Surgeon/PhysicianProcedure: Release of trigger finger left ring finger [...] supine. The upper extremity was sterilely prepped anddraped in usual fashion and a timeout was taken in the operating room. The hand was exsanguinated and a tourniquet was inflated to 250 mmHg. After administration of anesthesia ( 3 cc of 1% lidocaine injected locally by me )transverse incision was made over the A1 shirin. Blunt dissection was carried down towards A1 shirin. The neurovascular structures were protected with Ragnell retractors. Therewas a cyst on the outside of the A1 shirin slightly ulnar and orientation. This was readily removedalong with the small piece of the A1 shirin. This was submitted to the left wrist pathologic studies. An incision was made over the A1 shirin with a 15 blade. The release was completed proximally anddistally with a pair of tenotomy scissors. I [...] [Verified on: 02/04/2019 16:37 EDT] Daquan Antunez [facility] HospitalPatient Handouton 02-04-2019 Patient HandoutDRMichelle OHARA POST OPERATIVE INSTRUCTIONS FOR FINGER SURGERY/MALLET FINGER REPAIR SURGEONS WRITTEN INSTRUTCTIONS:' -Keep your hand elevated above your elbow for the first 24 hours after surgery and apply an ice bagat intervals for the first 24 hours -Wiggle the unaffected fingers frequently while awake -DO NOT lift heavy objects or professor of surgery forcefully with the affected hand -DO NOT remove the dressing. This will be done at your first post operative visit at the office. Ifthe outer wrap/bandage is too tight, you may loosen it. -Keep the dressing clean and dry -You may shower in 1 day but DO NOT get the dressing wet -If you have any questions or concerns, please call the office at [phone] or go to the emergency room -Follow up as scheduledC[facility] Lutheran HospitalProgress Note - Nurseon 02-01-2019 Progress Note - NurseSpoke with pt regarding arrival time of 1145 and NPO status. Verbalized understanding. Pt instructed she will need a national van truck driver. Verbalized understanding. [Electronically Signed on: 02/01/2019 14:53 EDT] Kika Akers RN [Verified on: 02/01/2019 14:53 EDT] Kika Akers RNTuscarawas HospitalCoding Summaryon [id number] SummaryCODING DATE: 01/29/[address] [facility] STATUS: Home PAYOR: Medicare MC APC [...] By: Lili Cueto Date Saved: 01/29/2019 01:42 pmNMiami [facility].Auto Diff 1on 01-28-2019 Auto [place] %8 %Normal1-12[facility] HospitalComment on above:Performed By: #### [id number], [id number] #### [facility] (DEFAULT) [address] [place] [address] 72963Vmpi Abs#0.0 n25Vspfup6.0-0.2Magrgerman hospital HospitalComment on above:Performed By: #### [id number], [id number] #### [facility] (DEFAULT) [address] [place] [address] 38554Xcfterogc/100 WBC (Bld)0.4 %Normal0.2-2.0[facility] Comment on above:Performed By: #### [id number], [id number] #### [facility] (DEFAULT) [address] [place] [address] 19729Jxs Abs#0.2 p08Bxueym3.0-0.4[facility] HospitalComment on above:Performed By: #### [id number], [id number] #### [facility] (DEFAULT) [address] [place] [address] 97937Lmhcdjjvgde/100 WBC (Bld)3.5 %Normal0.9-4.0[facility] HospitalComment on above:Performed By: #### [id number], [id number] #### [facility] (DEFAULT) [address] [place] [address] 28188Tvxkwzgydio (Bld) [#/Vol]1.6 d43Idjfcg4.3-2.9[facility] HospitalComment on above:Performed By: #### [id number], [id number] #### [facility] (DEFAULT) [address] [place] [address] 81355Cmfurmxkqyb/100 WBC (Bld)32 %Nvsbcv16-83Isscvygd Hospital Comment on above:Performed By: #### [id number], [id number] #### [facility] (DEFAULT) [address] [place] [address] 80478Azmj Abs#0.4 y75Ukwzec2.0-0.8[facility] HospitalComment on above:Performed By: #### [id number], [id number] #### [facility] (DEFAULT) [address] [place] [address] 72696Vuux Abs#2.8 u76Svtujc2.5-9.2[facility] HospitalComment on above:Performed By: #### [id number], [id number] #### [facility] (DEFAULT) [address] [place] [address] 06099Dmffrpgeody/100 WBC (Bld)56 %Uapeih56-56Fhzilavo Hospital Comment on above:Performed By: #### [id number], [id number] #### [facility] (DEFAULT) [address] [place] [address] 42961RKC w/ Auto Diffon 02-39-7874Hsmkooxcefe distribution width (RBC) [Ratio]13.4 %Qadszw04.5-15.0[facility] HospitalComment on above: Performed By: #### [id number], [id number] #### [facility] (DEFAULT) [address] [place] [address] 53778Hitsfdlnry (Bld) [Volume fraction]40.4 %Isccif19.7-40.4 [facility] HospitalComment on above:Performed By: #### [id number], [id number] #### [facility] (DEFAULT) [address] [place] [address] 21072Ncrgasdbua (Bld) [Mass/Vol]13.9 g/sZFisghg91.3-15.9 [facility] HospitalComment on above:Performed By: #### [id number], [id number] #### [facility] (DEFAULT) [address] [place] [address] 00192Hwo Diff?AutoNormalUniversity Hospitals [facility] HospitalComment on above: Performed By: #### [id number], [id number] #### [facility] (DEFAULT) [address] [place] [address] 99820ZCI (RBC) [Entitic mass]31 clYdnzcg79-63Lauzmvds Hospital Comment on above:Performed By: #### [id number], [id number] #### [facility] (DEFAULT) [address] [place] [address] 01918XUYN (RBC) [Mass/Vol]34 g/pZFgeagh01-80Jbhfhtjs Hospital Comment on above:Performed By: #### [id number], [id number] #### [facility] (DEFAULT) [address] [place] [address] 41250AEJ (RBC) [Entitic vol]90 uEEbdomc14-931Miiesgyq Hospital Comment on above:Performed By: #### [id number], [id number] #### [facility] (DEFAULT) [address] [place] [address] 42347Ssggupep mean volume (Bld) [Entitic vol]10.3 fLHigh 6.3-10.2MOhioHealth Grant Medical CenterComment on above:Performed By: #### [id number], [id number] #### [facility] (DEFAULT) [address] [place] [address] 46099Erprdavbm (Bld) [#/Vol]199 g82Zusaen755-974Ouzulxqs HospitalComment on above:Performed By: #### [id number], [id number] #### [facility] (DEFAULT) [address] [place] [address] 16999HJE (Bld) [#/Vol]4.47 j62Pekcti0.70-5.30[facility] Comment on above:Performed By: #### [id number], [id number] #### [facility] (DEFAULT) [address] [place] [address] 66484BTB (Bld) [#/Vol]5.1 h61Kvnolv8.5-10.5[facility] Comment on above:Performed By: #### [id number], [id number] #### [facility] ([facility]) [address] [place] [address] Vital Signs Date TimeVital SignValuePerforming MqtjzklyjYqzblfor61-96-9027 12:46-0400Body oncjgl740.56 cmLatrell Jack MD Work Phone: 1(295)[address] [place], [place] 3576410-30-2025 12:46-0400 Body mass index (BMI) [Ratio]38.9 kg/m2Latrell Jack MD Work Phone: 1(486)[address] [place], [place] 3576410-30-2025 12:46-0400 Body wostsx058.96 kgLatrell Jack MD Work Phone: 1(895)[address] [place], [place] 3576410-30-2025 12:46-0400 Diastolic blood bpuvpswp51 mm[Hg]Latrell Jack MD Work Phone: 1(564)[address] [place], [place] 3576410-30-2025 12:46-0400 Heart rate65 /minLatrell Jack MD Work Phone: 1(246)[address] [place], [place] 3576410-30-2025 12:46-0400 Systolic blood medjgedz269 mm[Hg]Latrell Jack MD Work Phone: 1(398)[address] [place], [place] 3576410-21-2025 13:20-0400 Body .56 cmLatrell Jack MD Work Phone: 1(110)[address] [place], [place] 3576410-21-2025 13:20-0400 Body mass index (BMI) [Ratio]38.9 kg/m2Latrell Jack MD Work Phone: 1(158)[address] [place], [place] 3576410-21-2025 13:20-0400 Body lboqwgyawhz25.1 [degF]Latrell Jack MD Work Phone: 1(079)[address] [place], [place] 3576410-21-2025 13:20-0400 Body lznoyn217.96 kgLatrell Jack MD Work Phone: 1(480)[address] [place], [place] 3576410-21-2025 13:20-0400 Diastolic blood kieapjya83 mm[Hg]Latrell Jack MD Work Phone: 1(329)[address]10-21-2025 13:20-0400 Heart rate96 /minLatrell Jack MD Work Phone: 1(622)[address]10-21-2025 13:20-0400 Respiratory rate20 /minLatrell Jack MD Work Phone: 1(710)[address] [place], [place] 3576410-21-2025 13:20-0400 SaO2% (BldA) [Mass fraction]96 %Latrell Jack MD Work Phone: 1(178)[address] [place], [place] 7833610-21-2025 13:20-0400 Systolic blood mm[Hg]Latrell Jack MD Work Phone: 1(156)[address] [place], [place] 3576410-16-2025 11:06-0400 Body .56 cmLatrell Jack MD Work Phone: 1(864)[address] [place], [place] 3576410-16-2025 11:06-0400 Body mass index (BMI) [Ratio]39.3 kg/m2Latrell Jack MD Work Phone: 1(255)[address] [place], [place] 3576410-16-2025 11:06-0400 Body grcrvy774 kgLatrell Jack MD Work Phone: 1(809)[address] [place], [place] 3576410-02-2025 11:46-0400 Body zvnjbe984.56 cmLatrell Jack MD Work Phone: 1(569)[address] [place], [place] 3576410-02-2025 11:46-0400 Body mass index (BMI) [Ratio]39.4 kg/m2Latrell Jack MD Work Phone: 1(394)[address]10-02-2025 11:46-0400 Body hgylyjxxjxu53.1 [degF]Latrell Jack MD Work Phone: 1(104)[address] [place], [place] 7833610-02-2025 11:46-0400 Body uanmki646.32 kgLatrell Jack MD Work Phone: 1(930)207-[address] [place], [place] 7376210-02-2025 11:46-0400 Diastolic blood msuaztud00 mm[Hg]Latrell Jack MD Work Phone: 1(691)[address]10-02-2025 11:46-0400 Heart bgvn702 /minLatrell Jack MD Work Phone: 1(464)[address]10-02-2025 11:46-0400 Respiratory rate24 /minLatrell Jack MD Work Phone: 1(309)[address]10-02-2025 11:46-0400 SaO2% (BldA) [Mass fraction]99 %Latrell Jack MD Work Phone: 1(332)[address]10-02-2025 11:46-0400 Systolic blood rsztuqsf874 mm[Hg]Latrell Jack MD Work Phone: 1(292)[address]08-18-2025 11:00-0400 Body kampdx818 cmLatrell Jack MD Work Phone: [facility] CenterScbvjlfaku48-28-8687 11:00-0400Body mass index (BMI) [Ratio]40.03 kg/m2Latrell Jack MD Work Phone: [facility] CenterLyaupxaugq81-85-0015 11:00-0400Body temperature 97.11 [degF]Latrell Jack MD Work Phone: [facility] CenterLemvlmzfbw22-94-4772 11:00-0400Body .51 kgLatrell Jack MD Work Phone: [place] [address]Cntzvtbszt14-50-6207 11:00-0400Diastolic blood cgbpqwyi98 mm[Hg]Latrell Jack MD Work Phone: [place] [address]Nshwnglpaj16-64-8301 11:00-0400Heart wphx076 /min Latrell Jack MD Work Phone: [place] [address]Zyqtwkndjo68-41-9874 11:00-0400Respiratory rate22 /minLatrell Jack MD Work Phone: [facility] CenterOpmfnfzivd03-95-2967 11:00-4136CmW7% (BldA) [Mass fraction]95 %Latrell Jack MD Work Phone: [facility] CenterRjweucmuwy96-20-0554 11:00-0400Systolic blood fegsmxax237 mm[Hg]Latrell Jack MD Work Phone: 1([phone] [place], [place] [address]Qivskcgnjw12-67-8568 15:56-0400Body tzbodo745.02 cmLatrell Jack MD Work Phone: 1(495)[address] [place], [place] 3576407-28-2025 15:56-0400 Body mass index (BMI) [Ratio]38.4 kg/m2Latrell Jack MD Work Phone: 1(125)[address] [place], [place] 3576407-28-2025 15:56-0400 Body otelms14.42 kgLatrell Jack MD Work Phone: 1(119)[address] [place], [place] 3576407-28-2025 15:56-0400 Diastolic blood zkidcyck36 mm[Hg]Latrell Jack MD Work Phone: 1(274)[address] [place], [place] 3576407-28-2025 15:56-0400 Heart rate90 /minLatrell Jack MD Work Phone: 1(929)[address] [place], [place] 3576407-28-2025 15:56-0400 SaO2% (BldA) [Mass fraction]92 %Latrell Jack MD Work Phone: 1(121)[address]07-28-2025 15:56-0400 Systolic blood zihthbut221 mm[Hg]Latrell Jack MD Work Phone: 1(220)[address]06-09-2025 15:53-0400 Body aslmidnvngo48.2 [degF]Latrell Jack MD Work Phone: 1(838)[address]06-09-2025 15:53-0400 Heart rate84 /minLatrell Jack MD Work Phone: 1(456)[address]06-09-2025 15:53-0400 Respiratory rate18 /minLatrell Jack MD Work Phone: 1(584)[address]06-09-2025 15:53-0400 SaO2% (BldA) [Mass fraction]99 %Latrell Jack MD Work Phone: 1(119)[address]06-09-2025 14:15-0400 Diastolic blood nmizdsdn14 mm[Hg]Latrell Jack MD Work Phone: 1(806)[address]06-09-2025 14:15-0400 Systolic blood ayyblvlz362 mm[Hg]Latrell Jack MD Work Phone: 1(696)[address]06-09-2025 09:00-0400 Body ukspri858.3 kgLatrell Jack MD Work Phone: 1(322)[address]06-06-2025 14:41-0400 Body melnqr452.02 cmLatrell Jack MD Work Phone: 1(436)[address]05-28-2025 13:39-0400 Body slwzel880 cmLatrell Jack MD Work Phone: [facility] CenterIgwknmhqid56-80-0521 13:39-0400Body mass index (BMI) [Ratio]38.97 kg/m2Latrell Jack MD Work Phone: [facility] CenterCexkgiqany07-14-9071 13:39-0400Body temperature 97.3 [degF]Latrell Jack MD Work Phone: [facility] CenterMzomyeujou33-86-6129 13:39-0400Body hhfbom91.79 kgLatrell Jack MD Work Phone: [facility] CenterPrskcwitsm07-34-5389 13:39-0400Diastolic blood zhbrfbia57 mm[Hg]Latrell Jack MD Work Phone: [facility] CenterEibsudygly14-54-8463 13:39-0400Heart rate97 /min Latrell Jack MD Work Phone: [facility] CenterAwrggbhduy92-42-9901 13:39-0400Respiratory rate22 /minLatrell Jack MD Work Phone: [facility] CenterWnwmomfylg42-76-6483 13:39-2994JwW0% (BldA) [Mass fraction]97 %Latrell Jack MD Work Phone: [facility] CenterLnwhfhtcdz47-94-4389 13:39-0400Systolic blood psckycne116 mm[Hg]Latrell Jack MD Work Phone: [facility] CenterErqsyhocyc42-08-4643 10:25-0500Body ubnqns488 cm Latrell Jack MD Work Phone: 1(491)747-[address] [place], [place] [address]Qvapfhdesw60-06-3100 10:25-0500Body mass index (BMI) [Ratio]36.14 kg/m2Latrell Jack MD Work Phone: [facility] CenterZadoaxovaq39-81-5145 10:25-0500Body temperature 95.9 [degF]Latrell Jack MD Work Phone: [facility] CenterRjusouzmiz17-60-3307 10:25-0500Body siqpak38.53 kgLatrell Jack MD Work Phone: [facility] CenterRuvjdyaweu46-14-0603 10:25-0500Diastolic blood zulwiyhc71 mm[Hg]Latrell Jack MD Work Phone: [facility] CenterZilfkuxjvw77-10-3341 10:25-0500Heart rate50 /min Latrell Jack MD Work Phone: [facility] CenterEtndqdcyyg59-34-3795 10:25-0500Respiratory rate22 /minLatrell Jack MD Work Phone: [facility] CenterCeveqipebv01-58-2071 10:25-7646ElP4% (BldA) [Mass fraction]97 %Latrell Jack MD Work Phone: [facility] CenterGpparpflzn84-99-9108 10:25-0500Systolic blood srcnekst363 mm[Hg]Latrell Jack MD Work Phone: [facility] CenterBpclqhjeki98-98-9658 14:04-0500Body nkmtar001.6 [facility] COAL HANDLING SUPERVISOR.CARDIOPULMONARY TECHNOLOGIST Work Phone: [phone]01-29-2025 14:04-0500Body mass index (BMI) [Ratio]34.84 kg/i6YowwqgalSharp [facility]mont Hospital COAL HANDLING SUPERVISOR.CARDIOPULMONARY TECHNOLOGIST Work Phone: [phone]01-29-2025 14:04-0500Body temperature 97.59 [degF][facility] COAL HANDLING SUPERVISOR.CARDIOPULMONARY TECHNOLOGIST Work Phone: [phone]01-29-2025 14:04-0500Body izpkbe78.08 kgSharp [facility] COAL HANDLING SUPERVISOR.CARDIOPULMONARY TECHNOLOGIST Work Phone: [phone]01-29-2025 14:04-0500Diastolic blood ghustwix26 mm[Hg][facility] COAL HANDLING SUPERVISOR.CARDIOPULMONARY TECHNOLOGIST Work Phone: [phone]01-29-2025 14:04-0500Heart rate75 /min [facility] COAL HANDLING SUPERVISOR.CARDIOPULMONARY TECHNOLOGIST Work Phone: [phone]01-29-2025 14:04-0500Systolic blood gdmfysxn344 mm[Hg][facility] COAL HANDLING SUPERVISOR.CARDIOPULMONARY TECHNOLOGIST Work Phone: [phone]01-14-2025 12:49-0500Body dnqeew472 cm [facility] 5 Work Phone: [phone]01-14-2025 12:49-0500Body mass index (BMI) [Ratio]37.45 kg/m2[facility] 5 Work Phone: [phone]01-14-2025 12:49-0500Body temperature 98.01 [degF]Pac 5 Work Phone: [phone]01-14-2025 12:49-0500Body qfegvp60.9 kgPacc 5 Work Phone: [phone]01-14-2025 12:49-0500Diastolic blood edrnkeeu31 mm[Hg]Pac 5 Work Phone: [facility]01-14-2025 12:49-0500Heart rate77 /min Pacc 5 Work Phone: [facility]01-14-2025 12:49-0500Respiratory rate 20 /minPacc 5 Work Phone: [facility]01-14-2025 12:49-0032GwH3% (BldA) [Mass fraction]99 %Pacc 5 Work Phone: [facility]01-14-2025 12:49-0500Systolic blood hokxxkey721 mm[Hg]Pacc 5 Work Phone: [facility]11-21-2024 15:36-0500Body cm Sandra Arcos BAR HELPER Work Phone: [facility] CenterRenrwublxn91-03-8888 15:36-0500Body mass index (BMI) [Ratio]38.26 kg/n5OecplnSandra Arcos BAR HELPER Work Phone: [place] [address]Fgdqttvrsx17-11-8475 15:36-0500Body fozevy74.98 kgSandra Arcos BAR HELPER Work Phone: [place] [address]Ubwlnqosvq41-40-4704 15:36-0500Diastolic blood fugddews25 mm[Hg]Sandra Arcos BAR HELPER Work Phone: [place] [address]Xblgcgacfq25-23-1699 15:36-0500Systolic blood giewzjlb528 mm[Hg]Sandra Arcos BAR HELPER Work Phone: [place] [address]Mswdqftcjd62-96-0130 10:02-0500Body xezlho971 cm Latrell Jack MD Work Phone: [place] [address]Nvvcydevau27-39-3751 10:02-0500Body mass index (BMI) [Ratio]38.26 kg/m2Latrell Jack MD Work Phone: [facility] CenterWiohufmyco24-85-7616 10:02-0500Body temperature 97.11 [degF]Latrell Jack MD Work Phone: [place] [address]Xdqmdiwajq23-25-1641 10:02-0500Body yfckno47.98 kgLatrell Jack MD Work Phone: [facility] CenterQxjnqvqfyf16-32-4467 10:02-0500Diastolic blood ywdvnmff95 mm[Hg]Latrell Jack MD Work Phone: [facility] CenterZlmlgihxiy26-61-1994 10:02-0500Heart rate78 /min Latrell Jack MD Work Phone: [place] [address]Gvrxgdnjrp55-84-6999 10:02-0500Respiratory rate22 /minLatrell Jack MD Work Phone: [place] [address]Mazeibfymt76-06-0821 10:02-4385VqV0% (BldA) [Mass fraction]97 %Latrell Jack MD Work Phone: [facility] CenterLnpxoipigl10-38-3998 10:02-0500Systolic blood qmoqsyhj183 mm[Hg]Latrell Jack MD Work Phone: [facility] CenterDhdpjsyefw38-10-8396 10:55-0400Body mwpzig542.4 Marco A Boyd MD Work Phone: EMer[facility] HospitalMaogur92-38-5764 10:55-0400Body mass index (BMI) [Ratio]42.58 kg/j7SmzzwXavier Boyd MD Work Phone: [place] Fuueem72-75-6257 10:55-0400Body temperature 98.49 [degF]Xavier Boyd MD Work Phone: Dwvumed[facility] hospitaland Pguzxy99-39-8529 10:55-0400Body uhkjea16.88 kgXavier Boyd MD Work Phone: [place] Mplvvr24-79-5153 10:55-0400Diastolic blood uflfricw10 mm[Hg]Xavier Boyd MD Work Phone: [place] Rilxjm65-43-2011 10:55-0400Heart rate90 /min Xavier Boyd MD Work Phone: [place] Cqefqw79-20-6931 10:55-0400Systolic blood uydaovzz131 mm[Hg]Xavier Boyd MD Work Phone: cMer[facility] HospitalZtsjgi46-35-1935 13:23-0400Diastolic blood ihbyjfst94 mm[Hg]Wilson Sarmini [address] [place], [place] 1740609-11-2024 13:23-0400Heart rate66 /minMuhammad Sarmini [address] [place], [place] 1740609-11-2024 13:23-0400Mean blood mm[Hg]Wilson Sarmini [address] [place], [place] 1740609-11-2024 13:23-0400 Respiratory rate15 /minMuhammad Sarmini [address] [place], [place] 1740609-11-2024 13:23-1208ZoA7% (BldA) [Mass fraction]94 %Wilson Sarmini [address] [place], [place] 1740609-11-2024 13:23-0400 Systolic blood imgphrep903 mm[Hg]Wilson Sarmini [address] [place], [place] 1740609-11-2024 13:15-0400 Diastolic blood rkcnovdi75 mm[Hg]Wilson Sarmini [address] [place], [place] 1740609-11-2024 13:15-0400Heart rate64 /minMuhammad Sarmini [address] [place], [place] 1740609-11-2024 13:15-0400Mean blood mgbcevkd730 mm[Hg]Wilson Sarmini [address] [place], [place] 1740609-11-2024 13:15-0400 Respiratory rate13 /minMuhammad Sarmini [address] [place], [place] 1740609-11-2024 13:15-1342JsS1% (BldA) [Mass fraction]96 %Wilson Sarmini [facility]09-11-2024 13:15-0400 Systolic blood mhbqxnqe465 mm[Hg]Wilson Sarmini [facility]09-11-2024 13:05-0400 Diastolic blood ttiefurk04 mm[Hg]Wilson Sarmini [address] [place], [place] 1740609-11-2024 13:05-0400Heart rate64 /minMuhammad Sarmini [address] [place], [place] 1740609-11-2024 13:05-0400Mean blood grfvwbye28 mm[Hg]Wilson Sarmini [facility]09-11-2024 13:05-0400 Respiratory rate12 /minMuhammad Sarmini [address] [place], [place] 1740609-11-2024 13:05-7387QkX9% (BldA) [Mass fraction]96 %Wilson Sarmini [facility]09-11-2024 13:05-0400 Systolic blood wusgexnq629 mm[Hg]Wilson Sarmini [facility]09-11-2024 12:58-0400Body nyawhdgogni89.16 [degF]Wilson Sarmini [address] [place], [place] 1740609-11-2024 12:50-0400 Respiratory rate15 /minMuhammad Sarmini [address] [place], [place] 1740609-11-2024 12:45-0400 Respiratory rate18 /minMuhammad Sarmini [facility]09-11-2024 11:14-0400Blood Pressure LocationMuhammad Sarmini [facility]09-11-2024 11:14-0400Body hkddemdqaza74.7 [degF]Wilson Sarmini [facility]09-11-2024 11:14-0400 Respiratory rate18 /minMuhammad Sarmini [facility]08-29-2024 11:21-0400Body pudovr885 cmNicole Amilcar DO Work Phone: [facility] CenterVbgcwlrvyt32-13-1123 11:21-0400Body mass index (BMI) [Ratio]44.46 kg/p2Goshml Amilcar DO Work Phone: [facility] CenterXcbmjjdnzm58-62-7195 11:21-040Body zsdtpy278.85 kgNicole Amilcar DO Work Phone: [facility] CenterNgtfcpzfgo47-07-6897 11:21-0400Diastolic blood kvinjuwt96 mm[Hg]Diomedes Amilcar DO Work Phone: [facility] CenterFsuhwkvudc89-72-6078 11:21-0400Heart rate84 /min Diomedes Amilcar DO Work Phone: [place] [address]Utwbanisvm41-83-8129 11:21-8774GeI6% (BldA) [Mass fraction]94 %Diomedes Amilcar DO Work Phone: [facility] CenterGnibkzalwj92-15-5804 11:21-0400Systolic blood mm[Hg]Diomedes Amilcar DO Work Phone: [place] [address]Tswebpsird38-95-3730 09:12-0400Blood Pressure LocationMuhammad Sarmini [phone]-SqlafMartins Ferry [facility] Digest[facility] Nwlyuv91-21-6851 09:12-0400Diastolic blood lyxwjjnl08 mm[Hg]Wilson Sarmini [phone]-BftjeMartins Ferry Hospital Digestive Qnxnml36-50-4500 09:12-0400Heart rate66 /minMuhammad Sarmini [phone]-EebmkTri[facility]08-19-2024 09:12-0400Respiratory rate16 /minMuhamserenad Ameyamini [phone]-JhschTrihealth [facility]08-19-2024 09:12-0400Systolic blood mm[Hg]Dafne Houmini [phone]-PobiiTrihealth [facility]04-05-2024 09:42-0400Diastolic blood fdukkfyh03 mm[Hg]Pa NILL [facility]04-05-2024 09:42-0400Heart rate69 /minMichael NILL [facility]04-05-2024 09:42-0400Mean blood lhrhjemo590 mm[Hg]Pa NILL [facility]04-05-2024 09:42-0400 Respiratory rate15 /minMichael NILL [facility]04-05-2024 09:42-4176YpR8% (BldA) [Mass fraction]97 %Pa NILL [facility]04-05-2024 09:42-0400 Systolic blood lgsfhrre390 mm[Hg]Pa NILL [facility]04-05-2024 09:32-0400 Diastolic blood sarjydtf88 mm[Hg]Pa NILL [facility]04-05-2024 09:32-0400Heart rate67 /minMichael NILL [facility]04-05-2024 09:32-0400Mean blood hukibzmz65 mm[Hg]Pa NILL [facility]04-05-2024 09:32-0400 Respiratory rate20 /minMichael NILL [facility]04-05-2024 09:32-7075IzK0% (BldA) [Mass fraction]95 %Pa PALMERL [facility]04-05-2024 09:32-0400 Systolic blood sakdiwuc490 mm[Hg]Pa NILL [facility]04-05-2024 09:27-0400 Diastolic blood ewcujhnt61 mm[Hg]Pa PALMERL [facility]04-05-2024 09:27-0400Heart rate70 /minMichael NILL [facility]04-05-2024 09:27-0400Mean blood aeovaqfu58 mm[Hg]Pa PALMERL [facility]04-05-2024 09:27-0400 Respiratory rate15 /minMichael NILL [facility]04-05-2024 09:27-4992ZtY7% (BldA) [Mass fraction]96 %[facility] [facility]04-[facility]24 09:27-0400 Systolic blood wzxstfen974 mm[Hg]Pa PALMERL [facility]04-05-2024 09:17-0400Body habevsoovcf13.16 [degF]Pa NILL [facility]04-05-2024 09:10-0400 Respiratory rate16 /minMichael NILL [facility]04-05-2024 09:05-0400 Respiratory rate16 /minMichael NILL [facility]04-05-2024 08:03-0400Body dhkwaoiyhel03.34 [degF]Pa PALMEREmily [facility]02-02-2024 09:53-0500Body icemvg738 cmLatrell Jack MD Work Phone: [facility] CenterQzdsbyckjg14-61-8711 09:53-0500Body mass index (BMI) [Ratio]40.39 kg/m2Latrell Jack MD Work Phone: [facility] CenterFxorerzved46-36-1010 09:53-0500Body temperature 97.11 [degF]Latrell Jack MD Work Phone: noPark[facility] CenterMdmndwowta43-81-6465 09:53-0500Body ixtkfq704.42 kgLatrell Jack MD Work Phone: noParkland Health CenterLkwntjppdj94-40-6790 09:53-0500Diastolic blood mm[Hg]Latrell Jack MD Work Phone: [facility] CenterGwarilrtib42-14-8448 09:53-0500Heart rate94 /min Latrell Jack MD Work Phone: noPark[facility] Health CenterNpcmvizyhu13-09-3584 09:53-5883TuU1% (BldA) [Mass fraction]97 %Latrell Jack MD Work Phone: noParkland Health CenterWywjmmmlzh16-11-8600 09:53-0500Systolic blood mm[Hg]Latrell Jack MD Work Phone: no[facility] Encounters Encounter DateEncounter TypeCare ProviderFacilityStart: 05-08-2025 End: 41-93-5634vjfsjpuyjyFwng Naderer MD Work Phone: -[facility] [place]vueStart: 05-08-2025 End: 09-27-0118Dprdnnf encounter Monique Palacio COAL HANDLING SUPERVISOR-[facility] [place] Work Phone: Start: 04-29-2025 End: 30-62-9560bzoedefldmVnnl Naderer MD Work Phone: -[facility] [place]Start: 04-29-2025 End: 19-64-3176Jcrbhex encounter procedureLatrell Jack MDST[facility] [place] Work Phone: Start: 04-28-2025 End: 22-98-2808pvgnbnxnozPxybkzk Vytautas Giedraitis MDFacility:PM [place] Start: 04-24-2025 End: 22-19-9454rpsppywtdpXwxs Naderer MD Work Phone: [facility] Work Phone: Start: 04-24-2025 End: 25-89-0474Pqrwkhy encounter procedureElmer Suh [facility] [place] Work Phone: Start: 60-79-1010Wpwsobxkoi Alfredito Kim MDVIRGINIA MASON [facility] CredibleStart: 95-67-0608cgfyqrdlkeMeexuratriq Abdelaziz [facility] Hospitaltart: 04-23-2025 End: 39-17-8499ujqsrjzndtKHYHZIJH MILESFacility:[facility] Centertart: 04-10-2025 End: 93-73-2009tqrcvedpjoAceu Naderer MD Work Phone: [facility] Work Phone: Start: 04-10-2025 End: 16-16-9572Gxdxwza encounter procedureLatrell Jack MDST[facility] [place] Work Phone: Start: 03-04-2025 End: 31-98-0127Kagogpizl Result EncounterLatrell Jack MD Work Phone: noms External Department UnsolicitedStart: 03-04-2025 End: 25-95-6712Vuoiwxusl Result EncounterLatrell Jack MD Work Phone: noms External Department UnsolicitedStart: 02-27-2025 End: 62-14-3174Nobzcfpcj Result EncounterLatrell Jack MD Work Phone: noms External Department UnsolicitedStart: 02-27-2025 End: 06-91-7620Oboyzhsbg Result EncounterLatrell Jack MD Work Phone: noms External Department UnsolicitedStart: 02-24-2025 End: 01-85-8439Utnmvo flowsRonald Jack MD Work Phone: noms CWM FMStart: 02-24-2025 End: 95-10-8478Moegej flowsRonald Jack MD Work Phone: noms CWM FMStart: 02-24-2025 End: 44-65-3595Fqxbcp outpatient visit 25 minutesLatrell Jack MD Work Phone: noms CW FMComment on above:Essential hypertension, benign (Primary Dx); Chronic obstructive pulmonary disease, unspecified COPD type (HCC); Primary insomnia; Primary osteoarthritis of both knees; Breast cancer screening by mammogram; Former smokerStart: 02-24-2025 End: 77-21-5699myklonxjynJYTN NADERERNot AvailableStart: 02-03-2025 End: 71-63-6834josncrxtprAwxl Naderer MD Work Phone: [facility] Work Phone: Start: 02-03-2025 End: 66-63-0919Aryffmp encounter procedureNiclucila Fitzgerald DO-[facility] [place] Work Phone: Start: 22-75-0379Lifwqdfmaf RecurringErik Kim MDVIRGINIA [facility] CredibleStart: 12-30-2024 End: 34-83-1776mewtsxvodnWfnsnhq Vytautas Giedraitis MDFacility:PM [place] Start: 77-58-3210Mxy-patient / Non-visitLatrell Jack MD Work Phone: [facility] Work Phone: Start: 12-12-2024 End: 82-91-0799Ppydbfttsz and management of inpatientLatrell Jack MD Work Phone: [facility] Work Phone: Start: 12-12-2024 End: 65-23-3798Smozhmasd Result EncounterGeneric External Data ProviderNOMS External Department UnsolicitedStart: 12-12-2024 End: 88-94-7101Mhzhfebiz Result EncounterGeneric External Data ProviderNOMS External Department UnsolicitedStart: 12-12-2024 End: 70-92-4129Xubjrgcmq department patient visitCrescenciodean PalacioMichelle KohliFacility:[facility] Start: 12-04-2024 End: 17-71-4520Tneufw outpatient visit 15 minutesLatrell Jack MD Work Phone: noms CWM FMComment on above:Degenerative lumbar spinal stenosis (Primary Dx); Chronic obstructive pulmonary disease, unspecified COPD type (CMS/HCC)Start: 12-04-2024 End: 81-68-0875ixzqhmlwnyMBLL NADERERNot AvailableStart: 10-30-2024 End: 45-15-1021AiecrkFlgo Naderer MD Work Phone: noms CWM FMComment on above:Primary insomnia; Chronic obstructive pulmonary disease, unspecified COPD type (CMS/HCC)Start: 10-29-2024 End: 07-91-1303WbdojfEhch Naderer MD Work Phone: noms CWM FMComment on above:Chronic obstructive pulmonary disease, unspecified COPD type (CMS/HCC); Primary insomniaStart: 09-26-2024 End: 01-96-0867mrmhgtintkWDOMPA GILLMORNot AvailableStart: 08-27-2024 End: 08-27-0828Zdzput Audrey Jack MD Work Phone: noms CWM FMStart: 08-27-2024 End: 12-47-5073Ttenst Audrey Jack MD Work Phone: noms CWM FMStart: 08-27-2024 End: 27-80-5433Ognovpzgj Result EncounterLatrell Jack MD Work Phone: noms External Department UnsolicitedStart: 08-27-2024 End: 58-24-4626crkszvjcotLMVK NADERERNot AvailableStart: 08-27-2024 End: 35-86-2687Oxkzbub encounter procedureLatrell Jack MD Work Phone: [facility] Work Phone: Start: 08-27-2024 End: 28-67-8975Jznzpp follow up visit related to original Carline Jack MD Work Phone: noms CWM FMComment on above:Medicare annual wellness visit, subsequent (Primary Dx); Prediabetes; Dyslipidemia (CMS/HCC); Encounter for long-term (current) use of medications; Essential hypertension, benign (CMS/HCC); Class 2 severe obesity due to excess calories with serious comorbidity and body mass index (BMI) of36.0 to 36.9 in adult (CMS/HCC); Chronic obstructive pulmonary disease, unspecified COPD type (CMS/HCC); 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CMS/HCC)Start: 08-07-2024 End: 00-24-7425Ntppdvb encounter procedureKatarzyna Snyder APRN.CNP Work Phone: General SurgeryComment on above:Postoperative visit (Primary Dx)Start: 08-07-2024 End: 51-93-7837bufoaxowplRDPIQELD MILESFacility:[facility] Centertart: 07-31-2024 End: 09-74-7781Yinndvmlc encounterLatrell Jack MD Work Phone: noms CWM FMStart: 07-30-2024 End: 44-17-1603AbqbmrSluh Naderer MD Work Phone: noms CWM FMComment on above:Primary insomniaStart: 07-24-2024 End: 39-67-3422Ofrclraivd and management of inpatientLUCAS GRETCHEN BOYD Facility:[facility]art: 07-23-2024 End: 41-34-1841jzlpzcdtxdCISEZ STEINKENFacility:[facility] Centertart: 07-23-2024 End: 43-16-1806Szlubwyvn Result EncounterGeneric External Data ProviderNOMS External Department UnsolicitedStart: 07-23-2024 End: 05-20-1571Pohfpkttn Result EncounterGeneric External Data ProviderNOMS External Department UnsolicitedStart: 07-23-2024 End: 94-90-6550Fqucjegtmi hospital visit by physicianXr Chest Main E69Mpovdiicx Comment on above:Pre-op evaluation [Z01.818]Start: 07-23-2024 End: 68-66-6240Mhzrcidju to establishmentRodney Ville [address] Work Phone: pre AnesthesiaStart: 07-23-2024 End: 84-01-8610Ojyflhxkjc consultationRodney Ville [address] Work Phone: pre AnesthesiaComment on above:Pre-op evaluation (Primary Dx); Preoperative examination; Paraesophageal hernia; Chronic obstructive pulmonary disease, unspecified COPD type (HCC); CHENEY (dyspnea on exertion); Former smoker; EDWIN (obstructive sleep apnea); Hypertension, unspecified type; Gastroesophageal reflux disease, unspecified whether esophagitis present; Dyslipidemia; TIA (transient ischemic attack); Abnormal MRI of head; Memory loss; Chronic back pain, unspecified back location, unspecified back pain laterality; Primary insomniaStart: 07-23-2024 End: 41-56-2339Nxgysjaoachhf examination [place] [address] Work Phone: [facility] Work Phone: Start: 44-96-5605Riuwkvrkc for other preprocedural examinationLUCAS [facility] HospitalStart: 07-23-2024 End: 20-66-8672bcjodmwqriDSMZS RANDALL ANTON BEFFAFacility:[facility] Centertart: 36-28-1745Tmtkitcde for other preprocedural examinationLUCAS [facility] HospitalStart: 06-29-2024 End: 49-28-8246Mlmqhvpte Julia Arcos NP Work Phone: NOMS [place] STATE ROUTEStart: 06-24-2024 End: 71-33-2843dvdpnypiznIjssngcMichelle Arguello MDFacility:[facility] [place] Start: 06-13-2024 End: 70-43-5363Vkokmlqgk encounterLatrell Jack MD Work Phone: noms CWM FMComment on above:Medication QuestionStart: 06-10-2024 End: 12-50-6437abkwivzjsxKinvqvbMichelle Arguello MDFacility:[facility] [place] Start: 05-30-2024 End: 30-14-5372Afpcdm outpatient visit 25 minutesSandra Arcos BAR HELPER Work Phone: noms [facility] ROUTEComment on above:Memory loss (Primary Dx); Severe episode of recurrent major depressive disorder, 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); Generalized anxiety disorder (CMS/HCC); EDWIN on CPAP; Other chronic pain; Other insomniaStart: 05-30-2024 End: 42-85-6358vkedoxjpusSNOVIP GILLMORNot AvailableStart: 05-30-2024 End: 87-38-8006Icddld Marcellus Arcos BAR HELPER Work Phone: noms [facility] ROUTEStart: 05-30-2024 End: 40-39-9203Wgptvg Marcellus Arcos BAR HELPER Work Phone: noms [facility] ROUTEStart: 05-27-2024 End: 65-42-5493mqkotfcefxIgbpxzvMichelle Arguello MDFacility:[facility] [place] Start: 05-15-2024 End: 76-41-9932Pddoeu outpatient visit 25 minutesLatrell Jack MD Work Phone: noms CWM FMComment on above:Essential hypertension, benign (CMS/HCC) (Primary Dx); Chronic obstructive pulmonary disease, unspecified COPD type (CMS/HCC); Hiatal hernia with gastroesophageal reflux disease without esophagitis; EDWIN (obstructive sleep apnea); Primary osteoarthritis of both knees; Primary insomnia; Class 2 severe obesity due to excess calories with serious comorbidity and body mass index (BMI) of38.0 to 38.9 in adult ([facility]/HCC)Start: 05-15-2024 End: 22-00-4537igjxmdqnjoYVVQ NADERERNot AvailableStart: 05-06-2024 End: 05-74-5832mkvfcnklnfRtudtdu Vytautas Giedraitis MDFacility:PM [place] Start: 05-04-2024 End: 03-03-5573rtmdsyrvaeFfkagXavier Boyd MD Work Phone: digestive Disease InstComment on above:07.24.24 Cure (Lap Paraesophageal Hernia Repair/EGD 4 hours los 1)Start: 05-04-2024 End: 49-11-2168Mcjuugjmytsij examination doneXavier Boyd MD Work Phone: [facility] ClinicStart: 04-29-2024 End: 41-80-7003gjeddnjghiLBCED RANDALL ANTON BEFFAFacility:[facility] Centertart: 04-29-2024 End: 33-35-6668Cnsyxm outpatient new 45 minutesXavier Boyd MD Work Phone: General SurgeryComment on above:Paraesophageal hernia (Primary Dx)Start: 04-22-2024 End: 94-39-8427Lzbdznpvg Result EncounterGeneric External Data ProviderNOMS External Department UnsolicitedStart: 04-22-2024 End: 39-62-4940Aapiapnvp Result EncounterGeneric External Data ProviderNOMS External Department UnsolicitedStart: 04-22-2024 End: 32-86-0993Udqhdihfc encounterMisty [place] MAGeneral SurgeryStart: 04-11-2024 End: 32-53-7045Zsohtsq encounter procedureMao Morrow PhD Work Phone: NODS NEUROLOGYComment on above:Memory loss (Primary Dx); Word finding difficulty; EDWIN on CPAP; Other insomnia; Other chronic pain; Generalized anxiety disorder (CMS/HCC); Severe episode of recurrent major depressive disorder, without psychotic features (HCC) ([facility]/HCC)Start: 04-11-2024 End: 10-40-6629hawhqsveojSCLI NADERERNot AvailableStart: 04-10-2024 End: 33-71-7642Letfnfrgc Result EncounterGeneric External Data ProviderNOMS External Department UnsolicitedStart: 04-10-2024 End: 07-47-2235Vvgznpkip Result EncounterGeneric External Data ProviderNOMS External Department UnsolicitedStart: 03-26-2024 End: 13-03-5702Ubnmawg encounter Dony Morrow PhD Work Phone: no[facility]SEL[facility] NEUROLOGYComment on above:Memory loss (Primary Dx); Word finding difficulty; EDWIN on CPAP; Other insomnia; Other chronic pain; Generalized anxiety disorder (CMS/HCC)Start: 03-26-2024 End: 65-43-9302apynbzkqhoYEGOBDLF DENBESTENNot AvailableStart: 03-26-2024 End: 80-00-1410Cweqeb Trevon Morrow PhD Work Phone: noms NEUROLOGYStart: 03-26-2024 End: 39-88-6035Cozzld Trevon Morrow PhD Work Phone: noms NEUROLOGYStart: 03-26-2024 End: 38-14-9567lfftaybernPnnyoprg Talal SarminiFacility:FTMCStart: 03-26-2024 End: 29-69-2524Sswcdra encounter procedureMuhammad Talal Sarmini [facility] Start: 03-25-2024 End: 23-30-8451yrcgkycfkkHMBUTV DANNERNot AvailableStart: 03-20-2024 End: 18-85-3946vbphhzqatuHexyuyfj Talal SarminiFacility:FTMCStart: 03-20-2024 End: 29-52-9776Lmydscw encounter procedureMuhammad Talal Sarmini [facility] Start: 03-15-2024 End: 18-19-9657Ysbhndsiy Result EncounterNicole Amilcar DO Other Phone: noms External Department UnsolicitedStart: 03-15-2024 End: 34-76-9551Ekdkjbmtm Result EncounterNicole Amilcar DO Other Phone: noms External Department UnsolicitedStart: 03-07-2024 End: 84-42-5232Cathko flowsheetNicole Amilcar DO Work Phone: noms [place] ROUTEStart: 03-07-2024 End: 79-25-4910Lrcoku flowsheetNicole Amilcar DO Work Phone: noms [place] [facility] ROUTEStart: 03-07-2024 End: 55-35-8449Ackyaqubs Result EncounterNicole Amilcar DO Work Phone: noms External Department UnsolicitedStart: 03-07-2024 End: 49-49-1513Arncsq outpatient visit 40 minutesNicole Amilcar DO Work Phone: noms [place] ROUTEComment on above:Memory loss (Primary Dx); 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CMS/HCC); Mild cognitive impairment; EDWIN (obstructive sleep apnea)Start: 03-07-2024 End: 57-40-2107yxjwgtcruhLBKOWW DANNERNot AvailableStart: 02-26-2024 End: 09-58-2739ehhcdwnadcZaeypxgi Talal SarminiFacility:Bobbi DHStart: 02-26-2024 End: 14-92-0007Yisxpqj encounter procedureMuhammad Talal Sarmini 065-6340Cgpcsx-TqqniMartins Ferry [facility] Start: 17-87-9343kgdmflocjnOrycioo NILLFacility:Zoraida Brantley DHStart: 11-28-2023 End: 65-96-2220Gmfeemdbz Result Latrice Jack MD Work Phone: noms External Department UnsolicitedStart: 11-28-2023 End: 99-37-4750Bshcfhkwa Result Latrice Jack MD Work Phone: noms External Department UnsolicitedStart: 10-13-2023 End: 23-34-4489uubnledmehEevqgkw R NILLFacility:FTMCStart: 10-13-2023 End: 53-11-4822Plrhplt encounter procedureMichael R NILL [facility] Start: 09-12-2023 End: 07-63-7855kqemhqyfgbRarcslc R NILLFacility: NorwalkStart: 09-05-2023 ambulatoryMichael NILLFacility: EnakStart: 17-78-6578Ennyes flowsRonald Jack MD Work Phone: noms CWM FMStart: 52-19-5920Ofguyh flowsheetLatrell Jack MD Work Phone: noms CWM FMStart: 08-11-2023 End: 80-80-4976Gwrvsd outpatient visit 25 minutesMareli Jack MD Work Phone: noms CWM FMComment on above:Essential hypertension, benign (CMS/HCC) (Primary Dx); Chronic obstructive pulmonary disease, unspecified COPD type (CMS/HCC); Primary insomnia; Primary osteoarthritis of both knees; Hiatal hernia with gastroesophageal reflux disease without esophagitis; Seasonal allergic rhinitis due to pollen; Screening for colon cancer; Morbid obesity due to excess calories (CMS/HCC); Dyslipidemia (CMS/HCC); Encounter for long-term (current) use of medications; Body mass index [BMI] 40.0-44.9, adult (Z68.41)Start: 07-28-2022 End: 62-17-6737gclzquuykfSH LATRELL A NADERERFacility:W4Vccxm: 02-22-2022 End: 27-58-9591arhiycpyujJW SHANKAR HAYFacility:T6Cgrww: 11-11-2021 End: 55-90-1128wlvfelfzadDS LATRELL A NADERERFacility:C0Bjttg: 11-02-2021 End: 05-81-2711toirtmcjkdHQ SHANKAR HAYFacility:T3Hbjes: 09-10-2021 End: 70-46-3898hhibkpcncyGH WILLARD Cárdenas KARANFacility:Q5Bvmde: 76-36-8247Chxcclasp for preprocedural laboratory examinationPETER D [facility] Start: 09-07-2021 End: 42-47-2839opvlgieugoAV LATRELL Remigio NADERERFacility:F0Aevpe: 09-07-2021 End: 85-47-7393Vyqibbkia for preprocedural laboratory examinationDR LATRELL Remigio NADERERFacility:F4Vpivi: 04-92-3732Ibzlhjypd for preprocedural cardiovascular examinationPETER D [facility] Centertart: 09-02-2021 End: 21-51-0553qcvaoiccusIL LATRELL Remigio NADERERFacility:J6Jzghe: 09-02-2021 End: 97-38-8446Wbixuskti for preprocedural cardiovascular examinationDR LATRELL Remigio NADERERFacility:H1 Procedures DateProcedureProcedure DetailPerforming ClinicianStart: 37-25-7488ZA LUNG SCREENING LOW DOSELatrell Jack MD Work Phone: Start: 47-27-0437RA TOMOSYNTHESIS SCREENING BIMarc Guero OLIVO Work Phone: Start: 90-70-1919WdliatwlmnwOrtd Naderer MD Work Phone: Start: 52-49-8658ZS HIP LT MIN 2VGeneric External Data ProviderStart: 49-79-0843ATK CBC WITH AUTO DIFFLatrell Jack MD Work Phone: Start: 83-05-0667TR CHEST 2V FRONTAL/LATGeneric External Data ProviderStart: 79-73-4559Tlj routine ecg w/least 12 lds w/i&r Generic External Data ProviderStart: 82-41-7968HVL CONFIRM BLOOD TYPEGeneric External Data ProviderStart: 07-23-2024 End: 16-87-3818Bewwpsky screenLUCAS BEFFAComment on above:Order Comment: Specimen Type: BLOOD SPECIMEN Ordering Facility: [facility] Address: [address] [place], [place] [address]Performed By: #### [id number], HSTNT, [id number], [id number] #### [facility] CLIA [id number] [address] [place] [address] [place] AMERICAStart: 55-06-2217MRP CBC W AUTO DIFF BLDGeneric External Data ProviderStart: 09-56-4612VMJ TYPE AND SCREEN,30 DAYGeneric External Data ProviderStart: 58-33-7078SO LUMBAR SPINE WO CONGeneric External Data ProviderStart: 36-55-8928FZ FOOT RT MIN 3VGeneric External Data ProviderStart: 42-28-9610TizodlxgabmbtvikvegfehqaccWygvgwzi Sarmini Start: 45-47-0202LX HEAD/BRAIN WO CONNicole Amilcar DO Other Phone: Start: 11-53-4344QQU FOLIC ACIDNicole Amilcar DO Work Phone: Start: 96-43-5330BMH THYROID STIM HORMONENicole Amilcar DO Work Phone: Start: 11-23-0901FI TOMOSYNTHESIS SCREENING Ranjan Jack MD Work Phone: Start: 93-76-9668HuyawihdmxhKjedpx Amilcar DO Work Phone: Start: 41-25-3514AxmkdfsywbaHygwhd Amilcar DO Work Phone: Start: 89-35-8788BlxjmptwbjuWbvnfie NILL Hand tendon repairedMichael NILL Open reduction of fracture of ankle with internal fixationMichael NILL Repair of meniscusMichael NILL TonsillectomyMichael NILL Plan of Treatment DateCare ActivityDetailAuthorStart: 24-60-3845Uqikhzoqs for malignant neoplasm of colonNOMS HealthcareStart: 18-26-0558Ghcythhx ScreeningDiabetes Screening [facility]tart: 29-87-8005Xeetinns ScreeningDiabetes ScreeningPaulding County Hospitaltart: 42-51-7076UGQ Vaccine (1 - 1-dose 75+ series)RSV Vaccine (1 - 1- dose 75+ series)[facility] Hospitaltart: 70-15-3110Gjsgispdg for malignant neoplasm of breastMammogramNOMS HealthcareStart: 02-18-2026Medicare Annual Wellness (AWV)Medicare Annual Wellness (AWV)[facility] HealthcareStart: 08-07-2025 End: 77-99-9172US Chest WO contrastCT CHEST WO IVCON Radiology Routine Postoperative visit Expected: 08/07/2025, Expires: 09/06/2025[facility] Work Phone: Comment on above:Expected: 08/07/2025, Expires: 09/06/2025Start: 06-09-2025 End: 43-34-1527Dzqkttq encounter bjvyubuoc38/01/2025 1:10 PM EST Office Visit [facility] [address] [facility] [address] [place] [address] Layla Houston MD [address] [facility] [address] [place] [address] N[facility] [place] OtolaryngologyStart: 06-04-2025 End: 26-64-7867Kgktuus encounter kjesjkjoc17/26/2025 3:30 PM EST [facility] [address] [place] [address] [address], [address] [place] [address] NOMLyndon Hernandez AudiologyStart: 04-29-2025 End: 44-47-1701Ldpilns encounter xkxgozzlx52/21/2025 1:15 PM EDT Office Visit [facility] [address] [place] [address] Latrell Jack MD [address] [place] [address] NOMS CWM FMStart: 31-70-3222Mrlcgfl referralSt. [facility] Work Phone: Start: 17-39-9632Jnimibvqu vaccinationInfluenza Vaccine (#1)[facility] HealthcareStart: 02-24-2025 End: 44-71-2649LR Chest for screening WO contrastCT lung screening low dose Imaging Routine Former smoker Expected: 02/24/2025, Expires: 02/24/2026NOMO HealthcareComment on above:Expected: 02/24/2025, Expires: 02/24/2026Start: 02-24-2025 End: 65-96-4113JD Breast - bilateral ScreeningBilateral screening mammogram Imaging Routine Breast cancer screening by mammogram Expected: 02/24/2025, Expires: 04/26/2026[facility] Work Phone: Comment on above:Expected: 02/24/2025, Expires: 04/26/2026Start: 02-24-2025 End: 36-69-2958Acijhck encounter procedureNONORMAN [facility] FMComment on above:Arrived Start: 02-03-2025 End: 48-06-1363Unzcqed encounter uqtplujpz56/28/2025 4:00 PM EDT Office Visit [facility] [address] [place] [address] Diomedes Fitzgerald DO [address] [place] [address] MERCEDES BELLEVUEStart: 12-30-2024 End: 07-00-3920Usuqsyb encounter eotiijasm70/23/2025 1:00 PM EDT Office Visit [facility] ODOMEVUE [address] [place] [address] Diomedes Fitzgerald DO [address] [place] [address] [facility] ODOMHOLZER [facility] JACKSONtart: 56-82-2775EcgseenzsParkview Health Montpelier Hospitaltart: 55-37-8010Fhcfdhwi to Social ServicesParkview Health Montpelier Hospitaltart: 94-53-2644Fvotrrqo admissionParkview Health Montpelier Hospitaltart: 11-27-2024 Screening for malignant neoplasm of breastMaogramLIFEPOINT HOSPITALS HealthcareStart: 09-26-2024 End: 97-83-8932Zmljxan encounter procedureLIFEPOINT HOSPITALS [place] [facility] ROUTEStart: 08-27-2024 End: 54-16-1088Zvawk metabolic 1998 panel - Serum or PlasmaBasic metabolic panel Lab Routine Essential hypertension, benign (CMS/HCC) Expected: 08/27/2024 (Lauren roximate), Expires: 08/27/2025[facility] HealthcareComment on above:Expected: 08/27/2024 (Approximate), Expires: 08/27/2025Start: 08-27-2024 End: 64-51-8470QKG W Auto Differential panel - BloodCBC and differential Lab Routine Encounter for long-term (current) use of medications Expected: 08/10 (Approximate), Expires: 08/27/2025[facility] HealthcareComment on above: Expected: 08/27/2024 (Approximate), Expires: 08/27/2025Start: 08-27-2024 End: 83-51-6342Unputixglt A1c/Hemoglobin.total in BloodHemoglobin A1c Lab Routine Prediabetes Expected: 08/27/2024 (Approximate), Expires: 08/27/2025[facility] Work Phone: Comment on above:Expected: 08/27/2024 (Approximate), Expires: 08/27/2025Start: 08-27-2024 End: 26-59-5216Ojilnka function 2000 panel - Serum or PlasmaHepatic function panel Lab Routine Encounter for long-term (current) use of medications Expected: 08/27/2024 (Approximate), Expires: 08/27/2025[facility] HealthcareComment on above: Expected: 08/27/2024 (Approximate), Expires: 08/27/2025Start: 08-27-2024 End: 36-45-4225Lzhop 1996 panel - Serum or PlasmaLipid panel Lab Routine Dyslipidemia ([facility]/HCC) Expected: 08/27/2024 (Approximate), Expires: 08/27/2025 [facility] HealthcareComment on above:Expected: 08/27/2024 (Approximate), Expires: 08/27/2025Start: 08-27-2024 End: 30-72-4475Ympyjwdfyzz [Units/volume] in Serum or PlasmaTSH Lab Routine Class 2 severe obesity due to excess calories with serious comorbidity and body mass index (BMI) of 36.0 to 36.9 in adult ([facility]) Expected: 08/27/2024 (Approximate), Expires: 08/27/2025[facility] HealthcareComment on above:Expected: 08/27/2024 (Approximate), Expires: 08/27/2025Start: 08-16-2024 End: [id number] encounter pxkhnxurb20/07/2025 9:00 AM EST Office Visit [facility] [id number] [place] [address] Latrell Jack MD [address] [place] [address] [facility] CWM FMStart: 07-24-2024 End: 55-29-0654Pmadjrvcx to same day surgery almopg4907/24/2024 10:51 AM EST - 07/24/2024 3:42 PM EST Surgery Admitting [address] [place] [address] Xavier Boyd MD [address] [place], [place] [id number] LAPAROSCOPIC RPR PARAESOPHAGEAL HERNIA W/O FUNDOPLASTY W/ MESHAdmittingComment on above:LAPAROSCOPIC RPR PARAESOPHAGEAL HERNIA W/O FUNDOPLASTY W/ MESHStart: 07-24-2024 End: 86-21-9432Eqgt rpr paraesphgl hrna incl fundplsty w/meshLAPAROSCOPIC RPR PARAESOPHAGEAL HERNIA W/O FUNDOPLASTY W/ MESH Preoperative examination Paraesophageal hernia 07/24/2024 10:51 AM [facility]ION[facility]: 07-24-2024 Subsequent hospital visit by physicianAdmittingComment on above:Preoperative examination [Z01.818], Paraesophageal hernia [K44.9]Start: 62-50-2321Vtmyyqc Directive DiscussionAdvance Directive DiscussionPaulding County Hospitaltart: 06-29-2024 End: 64-77-8699zMBM in Platelet poor plasma by Coagulation assayACTIVATED PARTIAL THROMBOPLASTIN TIME Lab Routine Preoperative examination Paraesophageal hernia Abnormal coagulation profile Expected: 06/29/2024, Expires: 10/29/2024 [facility] CampusComment on above:Expected: 06/29/2024, Expires: 10/29/2024Start: 06-29-2024 End: 00-01-1834VOH W Auto Differential panel - BloodCOMPLETE BLOOD COUNT AND DIFFERENTIAL Lab Routine Preoperative examination Paraesophageal hernia Exp ected: 06/29/2024, Expires: 10/29/2024[facility] ClinicComment on above:Expected: 06/29/2024, Expires: 10/29/2024Start: 06-29-2024 End: 52-06-2519Vfykviunrjykm metabolic 2000 panel - Serum or PlasmaCOMPREHENSIVE METABOLIC PANEL Lab Routine Preoperative examination Paraesophageal hernia Expected: 06/29/2024, Expires: 10/29/2024[facility] ClinicComment on above: Expected: 06/29/2024, Expires: 10/29/2024Start: 06-29-2024 End: 20-07-9093KX panel - Platelet poor plasma by Coagulation assayPROTHROMBIN TIME Lab Routine Preoperative examination Paraesophageal hernia Abnormal results of liver function studies Expected: 06/29/2024, Expires: 10/29/2024[facility] ClinicComment on above:Expected: 06/29/2024, Expires: 10/29/2024Start: 06-29-2024 End: 75-00-3675GJXB AND SCREEN,30 DAYTYPE AND SCREEN,30 DAY Blood Bank Routine Preoperative examination Paraesophageal hernia Expected: 06/29/2024, Expires: 10/29/2024[facility] ClinicComment on above:Expected: 06/29/2024, Expires: 10/29/2024Start: 05-30-2024 End: 88-27-3389Whrjpmk encounter procedureNOMS [facility] R[facility]TEComment on above:ArrivedStart: 05-15-2024 End: 78-47-9536Qubwwst encounter crzwemlxq80/06/2024 10:00 AM EST [facility] [address] [place] [address] Latrell Jack MD [address] [place] [address] [facility] CW FMStart: 04-29-2024 End: 30-13-3134Koykbpj encounter kocskxoeo81/21/2024 11:00 AM EDT Office Visit General Surgery [address] [address] Xavier Boyd MD [address] [place] [address] Hiatal HerniaGeneral SurgeryComment on above:Hiatal Hernia Start: 04-11-2024 End: 22-67-5715Ajyvtra encounter vkyvzbcnm83/03/2024 9:00 AM EDT Office Visit [facility] NEUROLOGY [address] [phone] [facility] NEUROLOGYStart: 03-26-2024 End: 59-61-3351Eobbvyd encounter yamnozgrg00/17/2024 2:30 PM EDT Office Visit NOMS ST NEUROLOGY [address] [phone] Mao Morrow, PhD [address] [place] [address] ArrivedNORTHWEST MED[facility] NEUROLOGYComment on above:ArrivedStart: 03-25-2024 End: 26-34-7725Xeqnkwlvvgcw / ancillary services hxeevckupt48/16/2024 8:45 AM EDT Ancillary Procedure [facility] [place] [facility] [address] [place] [address] [facility] [place] [facility] ROUTEStart: 03-19-2024 End: 75-40-4802Qrdplml encounter qkktbiokw41/10/2024 2:00 PM EDT Office Visit [facility] [address] [facility] [place] [address] Mao Morrow, PhD [address] [place] [id number] [facility] NEUROLOGYStart: 71-71-2914Icmbt-19 Vaccine ( season)Covid-19 Vaccine ( season)[facility]: 03-10[facility]2024 Covid-19 Vaccine ( season)Covid-19 Vaccine ( season) [facility]: 98-95-6933Qnaxoznza vaccinationInfluenza Vaccine (#1)[facility] HealthcareStart: 03-07-2024 End: 25-70-5366Sxoesqyxr (Vitamin B12) [Mass/volume] in Serum or PlasmaVitamin B12 Lab Routine Memory loss Expected: 03/07/2024 (Approximate), Expires: 03/07/2025[facility] CenterComment [facility] above:Expected: 03/07/2024 (Approximate), Expires: 03/07/2025Start: 03-07-2024 End: 93-43-3857ZGF awake or drowsyEEG awake or drowsy Neurology Routine Memory loss Expected: 03/07/2024 (Approximate), Expires: 03/07/2025[facility] Work Phone: comment on above:Expected: 03/07/2024 (Approximate), Expires: 03/07/2025Start: 03-07-2024 End: 64-45-8730Scqfkx [Mass/volume] in Serum or PlasmaFolate Lab Routine Memory loss Expected: 03/07/2024 (Approximate), Expires: 03/07/2025[facility] Healthcare Comment on above:Expected: 03/07/2024 (Approximate), Expires: 03/07/2025Start: 03-07-2024 End: 29-59-0226JR Brain WO contrastMR brain wo contrast Imaging Routine Memory loss Expected: 03/07/2024, Expires: 03/07/2025[facility] HealthcareComment on above: Expected: 03/07/2024, Expires: 03/07/2025Start: 03-07-2024 End: 52-65-3138Alciyjzilqe [Units/volume] in Serum or PlasmaTSH Lab Routine Memory loss Expected: 03/07/2024 (Approximate), Expires: 03/07/2025[facility] HealthcareComment on above:Expected: 03/07/2024 (Approximate), Expires: 03/07/2025Start: 03-07-2024 End: 70-50-1643Ljcdevw encounter ccoxholfo99/29/2024 11:30 AM EDT Office Visit [facility] [address] [place] [address] Diomedes Fitzgerald DO [address] [place] [address] 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CMS/HCC)[facility] [place] [address] Comment on above: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CMS/HCC)Start: 02-09-2024 End: 49-30-1277Rwqxkfa encounter tsgodaewu06/02/2024 9:45 AM EDT Office Visit [facility] LISA [address] [place] [address] Latrell Jack MD [address] [place] [address] [facility] LISA FMStart: 08-11-2023 End: 55-82-5982Stswv metabolic 1998 panel - Serum or PlasmaBasic metabolic panel Lab Routine Encounter for long-term (current) use of medications Expected: 08/2023 (Approximate), Expires: 08/11/2024[facility] HealthcareComment on above: Expected: 08/11/2023 (Approximate), Expires: 08/11/2024Start: 08-11-2023 End: 61-59-0597QBK W Auto Differential panel - BloodCBC and differential Lab Routine Encounter for long-term (current) use of medications Expected: 08/2023 (Approximate), Expires: 08/11/2024[facility] HealthcareComment on above: Expected: 08/11/2023 (Approximate), Expires: 08/11/2024Start: 08-11-2023 End: 53-29-2260Nykpkpnxlc A1c measurementHemoglobin A1c Lab Routine Morbid obesity due to excess calories (CMS/HCC) Expected: 08/11/2023 (Approximate), Expires: 08/11/2024[facility] Work Phone: Comment on above:Expected: 08/11/2023 (Approximate), Expires: 08/11/2024Start: 08-11-2023 End: 48-95-5861Ksbooxb function 2000 panel - Serum or PlasmaHepatic function panel Lab Routine Encounter for long-term (current) use of medications Expected: 08/11/2023 (Approximate), Expires: 08/11/2024[facility] HealthcareComment on above: Expected: 08/11/2023 (Approximate), Expires: 08/11/2024Start: 08-11-2023 End: 24-06-3159Gnzyj 1996 panel - Serum or PlasmaLipid panel Lab Routine Dyslipidemia ([facility]/HCC) Expected: 08/11/2023 (Approximate), Expires: 08/11/2024 [facility] HealthcareComment on above:Expected: 08/11/2023 (Approximate), Expires: 08/11/2024Start: 08-11-2023 End: 47-08-1513Sslcwhbahhb [Units/volume] in Serum or PlasmaTSH Lab Routine Morbid obesity due to excess calories (CMS/HCC) Expected: 08/11/2023 (Approximate),Expires: 08/11/2024[facility] HealthcareComment on above:Expected: 08/11/2023 (Approximate), Expires: 08/11/2024Start: 08-11-2023 End: 37-69-2720Jsqwsac encounter zxqwifrzj75/02/2024 9:45 AM EST Office Visit [facility] LISA FM [address] [place] [address] Latrell Jack MD [address] [place] [address] [facility] FMComment on above:ArrivedStart: 77-04-2483Ulvwvxy Directive DiscussionAdvance Directive DiscussionPaulding County Hospitaltart: 52-59-2891Zgtyoxtok vaccinationInfluenza Vaccine (#1)[facility] HealthcareStart: 41-49-8269Fyvovibmw for osteoporosisBone Density ScreeningPaulding County Hospitaltart: 80-22-7670Scejtovy Vaccine (1 of 2)Shingrix Vaccine (1 of 2)[facility] Start: 50-09-0287Snpmbfro ScreeningDiabetes ScreeningPaulding County Hospitaltart: 98-00-3375Bnboh panelLipid ScreeningPaulding County Hospitaltart: 02-71-9996Yltxlbccn for malignant neoplasm of colonPaulding County Hospitaltart: 60-11-3656Gaupsxnrt for malignant neoplasm of breastNOMS HealthcareStart: 77-69-1897Sjsnhhrawr acid therapyAlpha-1 Antitrypsin Deficiency ScreeningPaulding County Hospitaltart: 09-21-1970 Urine microalbumin profileDTaP,Tdap,Td Vaccine (1 - Tdap)[facility]: 21-60-2733Fijwrq PCP Team Chronic Disease VisitAnnual PCP Team Chronic Disease VisitPaulding County Hospitaltart: 80-36-2373Kbnolla ScreeningAnxiety Screening [facility]: 86-13-5506YO Controlled (<130/80)BP Controlled (<130/80) [facility]: 32-60-1267Tdlupmtvbm ScreeningDepression Screening [facility]: 77-35-1813Ectztkzri C screeningHepatitis C Screening [facility]: 82-70-2666ZrybdcwfroFtdgizkiewGsfyruoph ClinicStart: 03-15-1952Medicare Annual Wellness (AWV)Medicare Annual Wellness (AWV)[facility] HealthcareStart: 61-01-1662Ivvsotyfa for malignant neoplasm of colonNOMS HealthcareStart: 58-79-0134Efgqjixfk for malignant neoplasm of lungLung Cancer Screening Shared Decision MakingResearch Medical Center End: 09-14-3432DOD COMPLETEECG COMPLETE ECG Routine Preoperative examination Paraesophageal hernia 1 Occurrences starting 05/06/2024 until 05/04/2025 [facility] CampusComment on above:1 Occurrences starting 05/06/2024 until 05/04/2025Laps rpr paraesphgl hrna incl fundplsty w/meshLAPAROSCOPIC RPR PARAESOPHAGEAL HERNIA W/O FUNDOPLASTY W/ MESH Preoperative examination Paraesophageal hernia MAIN PAVILIONPatient EducationDepression in adults - Discharge instructions [facility] [place] Instructions Know your Meds [facility] Work Phone: [facility] referralMorrow County [facility] Work Phone: REFER FOR ADMIT INTERVIEWREFER FOR ADMIT INTERVIEW Procedures Routine Preoperative examination Paraesophageal hernia [facility] Work Phone: Comment on above:Ordered: 05/06/2024 End: 33-01-1032RO Chest PA and LateralXR CHEST 2V FRONTAL/LAT Radiology Routine Pre-op evaluation Chronic obstructive pulmonary disease, unspecified COPD type (HCC) CHENEY (dyspnea on exertion) 1 Occurrences starting 07/23/[address] [place] [address] Work Phone: Comment on above:1 Occurrences starting 07/23/2024 until 08/23/2025XR Chest PA and LateralXR CHEST 2V FRONTAL/LAT Radiology Routine Pre-op evaluation Chronic obstructive pulmonary disease, unspecified COPD type (HCC) CHENEY (dyspnea on exertion) 07/23/2024 1:58 PM [facility] Immunizations Immunization DateImmunizationNotesCare XkaetvkdSemtfkzl10-87-3906ypmwkpaws virus vaccine, unspecified formulationLatrell Jack MD Work Phone: [facility] CenterZkpmnvvrof81-20-2052ckekfxqrr virus vaccine, unspecified formulationMichael NILL [phone]-WyrczMartins Ferry Hospital General Surgery [place] 60-96-3538TWNH-CoV-2 (COVID-19) mRNAMUL.ORD![id number] NILL [phone]-EclfgMartins Ferry Hospital [facility] 14-92-1532hxtrkuggz virus vaccine, unspecified formulationLatrell Jack MD Work Phone: [phone]-NmtngTrihealth [facility]05-19-2022 pneumococcal conjugate vaccine, 13 valentNicole Amilcar DO Work Phone: [facility] CenterNpmdggopbx33-21-9944dgduwuraz virus vaccine, unspecified formulationMuhammad Sarmini [phone]-QcfkuTrihealth [facility] Hospital10-04-2021 SARS-CoV-2 (COVID-19) mRNA BNT-162b2 vaxMichael NILL [phone]-VkulfOhio State Health System Comment on above:Result Comment: 2023-09-06: EWS1848-49-5714DHKX-WuQ-1 (COVID- 19) mRNA BNT-162b2 vaxMichael NILL [phone]-KvkzuOhio State Health System Comment on above:Result Comment: 2023-09-06: LNQ5317-22-8631MTWD-QbY-9 (COVID- 19) mRNA BNT-162b2 vaxMichael NILL [phone]-PjhgrOhio State Health System Comment on above:Result Comment: 2023-09-06: EMX9449-12-5098sjfnpoila virus vaccine, unspecified formulationMuhammad Sarmini [phone]-VmdckTrihealth [facility]11-07-2019 influenza virus vaccine, unspecified formulationMuhammad Sarmini [phone]-MbnjlTrihealth [facility]11-07-2019 pneumococcal polysaccharide vaccine, 23 valentMuhammad Sarmini [phone]-RplidTrihealth [facility]11-03-2018 influenza virus vaccine, unspecified formulationMuhammad Sarmini [phone]-XcyriTrihealth [facility]07-25-2018 pneumococcal conjugate vaccine, 13 valentMuhammad Sarmini [phone]-GpdefMartins Ferry Hospital Digestive Nnjque60-16-5395 influenza virus vaccine, unspecified formulationMuhammad Sarmini [phone]-UplroMartins Ferry Hospital [facility]ive Jygsxa50-56-4147 influenza virus vaccine, unspecified formulationMuhammad Sarmini [phone]-QiqqrMartins Ferry Hospital Digestive Health Payers DatePayer CategoryPayerPolicy ID2025Self-pay2017Medicare (Managed Care)[employer] MEDICARE ADVANTAGE Member Subscriber Plan / Payer (Effective 2016-2024) Name: Shey Obrien Relation to Subscriber: Self Name: Shey Obrien SubscriberID: [id number] Payer ID: [id number] (NAIC) Type: Not on file Address: [address] [id number] Health Insurance1.2.840.198634.1.13.693.2.7.3.835011.315 2017Medicare [id number] 2017Unknown1960Medicare [id number] Health [id number] 2.840.1.390116.3.57[id number] 2.840.1.359689.3.57[id number] 2.840.1.481858.3.579.2.25237-87-4125Qplkmrz4231212 2.16.840.1.789401.3.579.2.53627-04-7756Xuloduv2120714 2.16.840.1.628219.3.579.2.62406-95-5499Lbmehjw2591511 2.16.840.1.944184.3.579.2.89437-36-1345Chlyosd4503728 2.16.840.1.220387.3.579.2.35998-82-6797Kjxmdjc01392946 2.16.840.1.488831.3.579.2.67225-05-5853Xsdplzn10346445 2.16.840.1.468573.3.579.2.70425-13-0307Lktzzxo88789640 2.840.1.429821.3.579.2.22322-88-4040Egifpum44392783 2.16.840.1.109149.3.579.2.81724-53-1593Vdrpcgj11864094 2.16.840.1.722761.3.579.2.56539-21-9012Krmuiqd52833494 2.16.840.1.302834.3.579.2.48028-23-0342Rlnyizg82887124 2.16.840.1.425000.3.579.2.75386-80-4446Wcgyrer03190808 2.16.840.1.765853.3.579.2.55267-74-8835Mprmlty73205069 2.16.840.1.416511.3.579.2.470886-64-3535Gelfoib6275101 2.16.840.1.546563.3.579.2.343551-28-5336Bzlvwcp0939495 2.16.840.1.071368.3.579.2.511669-19-7730Ainjmlw1383607 2..840.1.925153.3.579.2.497204-46-1722Thgbszn0358067 2..840.1.451897.3.579.2.956815-52-7343Splfgmd8191254 2..840.1.039180.3.579.2.385842-38-1913Crigwog3363994 2..840.1.426883.3.579.2.165201-32-1451Yjhryow4306833 2.840.1.166222.3.579.2.437253-90-2235Krvhubd9492373 2.840.1.874286.3.579.2.730255-35-2689Bqvpgpv9312624 2..840.1.574951.3.579.2.740258-56-5014Qasfvej194245255 2..840.1.904074.3.579.2.57883-66-1885Rsidfdv406217566 2.840.1.787469.3.579.2.29178-04-6328Fbtzyoi153324212 2.840.1.199417.3.579.2.21666-91-6714Gqtfgjp412110913 2.840.1.356897.3.579.2.02070-81-5770Hyfzozo423474113 2..840.1.966496.3.579.2.40560-91-2193Pgbltoe851866236 2.16.840.1.009221.3.579.2.751Zaalwpn71761588 2.840.1.950993.3.579.2.531 Icxqtcv10303245 2.16.840.1.338037.3.579.2.531 Social History DateTypeDetailFacilityStart: 08-05-2023 End: 07-46-6925Sqfpmwz smoking status NHISEx-smokerNOMS HealthcareStart: 07-10-1967 End: 01-41-9880Wappnuq of tobacco useCurrent smokerNOMS HealthcareStart: 07-10-1967 End: 24-75-6985Qgosnam of tobacco useCigarette SmokerNOMS HealthcareStart: 08-05-2023 End: 72-63-2050Bytnucfqua smoked current (pack per day) - Tpzcpzvx2FT[facility] HealthcareStart: 08-05-2023 End: 56-29-7940Ectprvq use panelNOMO HealthcareStart: 50-09-6046Ugw Assigned At BirthNot on fileNOMS HealthcareStart: 08-11-2023 End: 09-80-7895Difkxrz use and exposureSmokeless tobacco non-userNOMS Healthcare Start: 91-46-0172Dxdmpcf smoking statusNeKettering Health Behavioral [facility] Center General Surgery [facility] Hospitaltart: 03-07-2024 End: 04-21-3389Sfcllgzuj beverage intakeCurrent drinker of alcohol (finding)[facility] HealthcareAre you now , , , , never or living with a partner?Never marriedNOMS HealthcareHow often to you have a drink containing alcohol?Monthly or lessNOMS HealthcareHow many standard drinks containing alcohol do you have on a typical day?3 or 4NOMS HealthcareHow often do you have 6 or more drinks on 1 occasion?Less than monthlyNOMS HealthcareDo you feel stress - tense, restless, nervous, or anxious, or unable to sleep at night because yourmind is troubled all the time - these days [OSQ]To some extent NOMS HealthcareIn the past 12 months, was there a time when you were not able to pay the mortgage or rent on time?NoNOMS HealthcareStart: 24-04-9447Nvjnczf CommentCaffeine: 2-3 cups per dayNOMS HealthcareTobacco smoking status NHIS Tobacco smoking consumption unknownPaulding County Hospitaltart: 94-15-2517Ehzxbw identityIdentifies as female gender (finding)[facility]: 07-23-2024 End: 51-45-5040Kuhproyzc beverage intakeEx-drinker (finding)[facility] Start: 40-37-6367Mgcdmyz CommentAge 16 - 60, 1/2 - 2 PPD, quit while at [address] [facility] CampusHow often do you need to have someone help you when you read instructions, pamphlets, or other written material from your doctor or pharmacy [SILS]SometimesNOMS HealthcareSexual OrientationFort Hamilton Hospital Start: 09-04-2018 End: 99-45-4258MclHekkcg (finding)[facility]: 1950 [facility] Ass[facility] At [facility] CenterFePremier Health [facility] Medical Equipment Procedure CodeEquipment CodeEquipment Original TextEquipment IdentifierDatesFelt Thk1.65mm Ptfe 4x.5in Cardiovascular Sterile - [id number]: 07-24-2024 Goals DatePatient GoalDesired Activity/State Functional Status YgxiMqinszxlbqMhwxucBowrhpqu44-41-7075Ouvigcvhoe statusPatient at Baseline [facility] Work Phone: 1([phone] 567-98480387876-19-9001Ppwlsxz Health Questionnaire 2 item (PHQ-2) [Reported][facility] Medical CenterNxzbnagfwp23-70-1124Rdcqyvbdbi StatusN/[facility]08-25-2024Total score [AUDIT-C]3 03/03/2024 8:19 AM Yadira DialloResearch Medical CenterEdyelwvgji52-80-8480Ofbapqnlkc StatusN/[facility]ive Rrswox10-41-0939Stbtiaovpr StatusN/[facility] HospitalN[facility] Mental Status BftqXgvvppljamTztjyiYqxzyskd58-49-9074Hswpwysyc functionCognitive Status Patient at BaselineAcmc Healthcare System Work Phone: Clinical Notes 09-10-2021 to 04-23-2025 Note Date & GpzpIgqaMlivibvu38-25-9648 NoteHNO ID: [id number] Author: KATARZYNA SNYDER APRN.CARDIOPULMONARY TECHNOLOGIST Service: ? Author Type: Nurse Practitioner Type: Progress Notes Filed: 04/23/2025 12:10 Note Text: [facility] Clinic Date: April [...] which included preparing to see the patient, urpa-td-alcf patient care, completing clinical documentation, obtaining and/or reviewing separately obtained history, performing a medically appropriate examination, and counseling and educating the patient/family/caregiver. Katarzyna Snyder, MSN, CARDIOPULMONARY TECHNOLOGIST April 23[facility]10-[facility]-2025 NoteHNO ID: [id number] Author: OLGA LIDIA BLAKE MA Service: ? Author Type: Video Game Creator Type: Progress Notes Filed: 04/23/2025 12:10 Note Text: What is the reason for your visit today? Est Who is your referring physician? Dr. Snyder Are you having poor oral intake? NO Have you had unintentional weight loss of 15 lbs/7 Kg in the last 3-6 months? YES Bowels: regular Wound: clean AND dry Temperature: No Drains: NoCKettering Health [facility]10-02-2025 Evaluation note* Diagnosis Onset Date Resolution Status [...] 2024 12:27pmMemory lossacute May 08, 2025 12:27pmPrimary insomniaacuteOct2024 12:27pm PseudodementiaacuteOct2024 12:27pmObstructive sleep apnea syndrome noneactiveOct2024 12:27pm [facility] Work Phone: 1(759) 420-604308-18-2025 History of Present illness Narrative* Latrell Jack MD - 02/24/2025 4:01 PM EDTAssociated Problem(s): Primary osteoarthritis of both knees Pain stable and use OTC PRN. * Latrell Jack MD - 02/24/2025 4:01 PM EDTAssociated Problem(s): Primary insomnia Sleeping well with lunesta and continue. * Latrell Jack MD - 02/24/2025 4:01 PM EDTAssociated Problem(s): Former smoker Quit in 2011 but prior 1 PPD for 40 plus years. Check LDCT chest. * Latrell Jack MD - 02/24/2025 4:00 PM EDTAssociated Problem(s): Essential hypertension, benign BP elevated and increase losartan. Continue to monitor PRN. * Latrlel Jack MD - 02/24/2025 4:00 PM EDTAssociated Problem(s): COPD (chronic obstructive pulmonary disease) (HCC) SOB stable and continue albuterol nebulized PRN. * Latrell Jack MD - 02/24/2025 10:30 AM EDT Images [...] Orders Bilateral screening mammogram documented in this encounterResearch Medical CenterTbkxjlusym06-16-2133 Evaluation note* Diagnosis Onset Date Resolution Status Admit Date Anxiety acuteJuly 2024 3:29pmMajor depressive disorder, recurrent, moderateacute February 03, 2025 3:29pmMemory lossacuteJuly 2024 3:29pmPrimary insomnia acuteJuly 2024 3:29pmPseudodementiaacuteJuly 2024 3:29pmObstructive sleep apnea syndromenoneactiveJuly 2024 3:29pmPrimary osteoarthritis, left shoulderacuteOctober 2024 11:27am [facility] Work Phone: 1([phone]) 263-643707-28-2025 Evaluation note* Diagnosis Onset Date Resolution Status Admit Date Anxiety acuteJuly 2024 3:29pmMajor depressive disorder, recurrent, moderateacute February 03, 2025 3:29pmMemory lossacuteJuly 2024 3:29pmPrimary insomnia acuteJuly 2024 3:29pmPseudodementiaacuteJuly 2024 3:29pmObstructive sleep apnea syndromenoneactiveJuly 2024 3:29pmDysfunction of left eustachian tubeacuteOctober 2024 11:27amEssential hypertension, benignacute April 10, 2025 11:27amPrimary osteoarthritis, left shoulderacuteOctober 2024 11:27amTinnitusacuteOctober 2024 11:27am [facility] Work Phone: 1(349) 562-970607-28-2025 Evaluation note* Diagnosis Onset Date Resolution Status Admit Date Anxiety acuteJuly 2024 3:29pmMajor depressive disorder, recurrent, moderateacute February 03, 2025 3:29pmMemory lossacuteJuly 2024 3:29pmPrimary insomnia acuteJuly 2024 [...] 1:07pmPrimary osteoarthritis of both kneesacuteOctober 2024 1:07pm [facility] Work Phone: 1([phone]) 361-238106-09-2025 [place] [address] Discharge Summary Signed Patient: Shey Obrien MR#: [id number] : 1950 Acct:[id number] Age/Sex: 74 / F Adm Date: 5 Loc: Room: [address] [place] [address]: Erik Kim MD Copies to: [...] encounter. I reviewed the history and performedthe bolwes elements of the assessment. I formulated the [...] boyfriend Employment: retired former [employer] worker in [employer], [place] Relationships: close, supportive relationship with family in [...] Instructions: Important Contact Information You can call [facility] at [phone] any timeday or night if you have emergent questions or question regarding discharge instructions. If at anytime you are feeling an increase inyour psychiatric symptoms, call your physician or behavioral healthcare provider. If any time you have thoughts of harming yourself or others contact one of the following: Call (available 30/01) Crisis Text Line (available 30/01) text 4HOPE to [id number] [facility] Line (available 8 a.m. Midnight) call [phone] ([phone]) Instructions: Depression in adults - Discharge instructions, [facility] [place] Instructions, Know your Meds [...] device 1 cap INHALATION DAILY Follow Up: [facility] [place] [Outside] - 12/17/24 (manager of finance will call you tomorrow, if you miss [...] MD 12/16/24 1131 Signed By: 12/16/24 1546 [facility]06-08-2025 Progress note Author Erik aguilar [facility] CampusNote Date/TimeJune 2024 10:52[place] [address] Psychiatry Progress Note Signed Patient: Shey Obrein MR#: [id number] : 1950 Acct:[id number] Age/Sex: 74 / F Adm Date: 5 Loc: Room: [address] [place] [address] Type : ADM IN Attending Dr: Erik [...] discharge. Documented By: Erik Kim MD 5 1128 Signed By: <Electronically signed by Erik Kim MD> 12/15/24 1052 <Electronically signed by DO MALICK Tee> 12/15/24 0998 [facility] Work Phone: 1(296) 218-229006-08-2025 [place] [address] Psychiatry Progress Note Signed Patient: Shey Obrien MR#: [id number] : 1950 Acct:[id number] Age/Sex: 74 / F Adm Date: 5 Loc: Room: [address] [place] [address] Type : ADM IN Attending Dr: Erik [...] 0941 Signed By: 12/15/24 1052 12/15/24 0943 [facility]06-07-2025 Progress note Author Erik aguilar [facility] CampusNote Date/TimeJune 2024 2:23[place] [address] Psychiatry Progress Note Signed Patient: Shey Obrien MR#: [id number] : 1950 Acct:[id number] Age/Sex: 74 / F Adm Date: 5 Loc: 1S Room: [address] [place] [address] Type : ADM IN Attending Dr: Erik [...] discharge. Documented By: Erik Kim MD 5 7374 Signed By: <Electronically signed by Erik Kim MD> 12/14/[address] [place] [address] Work Phone: 1(702) 487-548306-07-2025 [place] [address] Psychiatry Progress Note Signed Patient: Shey Obrien MR#: [id number] : 1950 Acct:[id number] Age/Sex: 74 / F Adm Date: 5 Loc: 1S Room: [address] [place] [address] Type : ADM IN Attending Dr: Erik [...] MD 5 1301 Signed By: 12/14/24 1423 [facility]06-06-2025 History and physical note Author Erik aguilar [facility] Campus[facility] Date/TimeJune 2024 10:06[place] [address] Psychiatry H&P Signed Patient: hSey Obrien MR#: [id number] : 1950 Acct:[id number] Age/Sex: 74 / F Adm Date: 5 Loc: 1S Room: [address] [place] [address] Type: ADM IN Attending Dr: Erik Kim [...] boyfriend Employment: retired former [employer] worker in [employer], [place] Relationships: close, supportive relationship with family in [...] bilaterally. CNXII: Tongue protrusion midline [facility] Medical History (Updated 12/13/24 @ [...] discharge. Documented By: Erik Kim MD 5 7293 Signed By: <Electronically signed by Erik Kim MD> 12/13/[address] [place] [address] Work Phone: 1(984) 681-678906-06-2025 [place] [address] Psychiatry H&P Signed Patient: Shey Obrien MR#: [id number] : 1950 Acct:[id number] Age/Sex: 74 / F Adm Date: 5 Loc: 1S Room: [address] [place] [address] Type: ADM IN Attending Dr: Erik Kim [...] boyfriend Employment: retired former [employer] worker in [employer], [place] Relationships: close, supportive relationship with family in [...] bilaterally. CNXII: Tongue protrusion midline [facility] Medical History (Updated 12/13/24 @ [...] MD 5 0841 Signed By: 12/13/24 1006 [facility]06-05-2025 Chief complaint+Reason for visit Narrative* Chief Complaint Admit Date Mental Evaluation. December 12, 2024 6:22p m Mental Evaluation. December 13, 2024 8:41a m Reason for Visit Admit Date Major depressive disorder, recurrent, mo derate December 12, 2024 6:22pm [facility] Work Phone: 1(280) 171-153806-05-2025 Chief complaint+Reason for visit Narrative * Chief Complaint Admit Date Mental Evaluation. December 12, 2024 6:22p m Mental Evaluation. December 13, 2024 8:41a m Reason for Visit Admit Date Major depressive disorder, recurrent, mo derate December 12, 2024 6:22pm Primary insomnia February 03, 2025 3:29 pm Obstructive sleep apnea syndrome February 032024 3:29pm [facility] Work Phone: 1(624) 173-683006-05-2025 Evaluation note* Diagnosis Onset Date Resolution Status Admit Date Major depressive disorder, recurrent, mo derate acuteJune 2024 6:22pm [facility] Work Phone: 1(343) 428-190306-05-2025 Evaluation note* Diagnosis Onset Date Resolution Status Admit Date Major depressive disorder, recurrent, mo derate acuteJune 2024 6:22pmPrimary insomniaacuteJuly 2024 3:29pmObstructive sleep apnea syndromenoneactiveJuly 2024 3:29pm [facility] Work Phone: 1(951) 478-665106-05-2025 Evaluation + Plan noteExtracted from:Title: ED NoteAuthor:Elmer Kohli DODate:12/12/24 Suicidal ideation (R45.851: Suicidal ideations) Orders: CBC w/ Auto Diff Communication Order Comprehensive Metabolic Panel Consult to Mental Health Drug Screen Urine ECG 12 Lead Adult eGFR Ethanol Level UA with Cult Rflx Urine Culture Diagnostic Tests Pending * Urine Culture 12/12/24 [facility] 05-28-2025 History of Present illness Narrative* Latrell Jack MD - 12/04/2024 2:25 PM EDTAssociated Problem(s): Degenerative lumbar spinal stenosis Recent flare and increased pain. Treat with prednisone. Use robaxin for spasms and norco PRN. Follow up with pain management next week as scheduled. * Latrell Jack MD - 12/04/2024 2:24 PM EDTAssociated Problem(s): COPD (chronic obstructive pulmonary disease) ([facility]) SOB stable and continue albuterol [...] tablet predniSONE (Deltasone) 50 MG tablet HYDROcodone-acetaminophen (Stella) 5-325 MG tablet documented in this encounterResearch Medical CenterXzqvxftpxq23-16-4265 History of Present illness Narrative* Latrell Jack [...] (BMI) of 36.0 to 36.9 in adult ([facility]) Weight loss indicated. * Latrell [...] Items Addressed This Visit Essential hypertension, benign ([facility]) BP controlled and monitor PRN. Relevant Orders Basic metabolic panel COPD (chronic obstructive pulmonary disease) ([facility]) Symptoms stable and continue spiriva. Use albuterol PRN. Dyslipidemia ([facility]) Relevant Orders Lipid panel Encounter for long-term (current) use of medications Relevant Orders CBC and differential Hepatic function panel Prediabetes Relevant Orders Hemoglobin A1c Class 2 severe obesity due to excess calories with serious comorbidity and body mass index (BMI) of36.0 to 36.9 in adult ([facility]) Weight loss indicated. Relevant Orders TSH Medicare annual wellness visit, subsequent - Primary Due for labs. Discussed proper diet and regular aerobic exercise. Need aerobic exercise 5-6 days a week for 30 minutes at a time. Smaller portions and limit total calories. Colonoscopy every 10 years. Tetanus every 10 years. Advised not to smoke. Discussed daily Aspirin therapy. documented in this encounterResearch Medical CenterKlnbgknuye18-73-4600 NoteHNO ID: [id number] Author: KATARZYNA SNYDER APRN.CARDIOPULMONARY TECHNOLOGIST Service: ? Author Type: Nurse Practitioner Type: Progress Notes Filed: 08/07/2024 15:37 Note Text: [facility] Clinic Date: August [...] completed prior to appointment Katarzyna Snyder, MSN, CARDIOPULMONARY TECHNOLOGIST [facility] 07[facility] History of Present illness Narrative* Katarzyna Snyder, LISSETTE.SKYLA - 08/07/2024 2:14 PM EST [facility] Clinic Date: August [...] completed prior to appointment Katarzyna Snyder, MSN, CARDIOPULMONARY TECHNOLOGIST August 07, 2024 * Olga Lidia Blake [...] Temperature: No Drains: No documented in this encounterSt. Mary'S [facility]01-29-2025 NoteHNO ID: [id number] Author: OLGA LIDIA BLAKE MA Service: ? Author Type: Video Game Creator Type: Progress Notes Filed: 08/07/2024 15:37 Note Text: What is the reason for your visit today? Post op Who is your referring physician? Dr. Snyder Are you having poor oral intake? NO Have you had unintentional weight loss of 15 lbs/7 Kg in the last 3-6 months? NO Bowels: constipated, diarrhea, or regular Wound: clean AND dry Temperature: No Drains: [facility]01-22-2025 Telephone encounter Note* Telephone Encounter - Latrell Jack MD - 07/31/2024 2:25 PM EST Sent to [facility]. Research Medical CenterEygyspfygu27-11-3403 Miscellaneous Notes* Telephone Encounter - Latrell Jack MD - 07/31/2024 2:25 PM EST Sent to [facility]. * Telephone Encounter - GEO DICK - 07/31/2024 2:20 PM EST Insurance won't cover the extended release ambien. * Telephone Encounter - Sandra Matias - 07/31/2024 1:13 PM EST Patient called and stated that her zolpidem refill was denied. She would like you to call her or the pharmacy. an documented in this encounterNOParkland Health CenterDvnkayslxv81-86-2088 Telephone encounter Note* Telephone Encounter - GEO DICK - 07/31/2024 2:20 PM EST Insurance won't cover the extended release ambien. Research Medical [id number] Telephone encounter Note* Telephone Encounter - Sandra Matias - 07/31/2024 1:13 PM EST Patient called and stated that her zolpidem refill was denied. She would like you to call her or the pharmacy. an Research Medical CenterGttqsmhwpl85-49-4459 NoteHNO ID: [id number] Author: DERREK MARSHALL RN Service: Care Management [...] TIME: 9:22 [facility]01-16-2025 NoteHNO ID: [id number] Author: DERREK MARSHALL RN Service: Care Management Author Type: Registered Nurse Type: Care Mgt Initial Assessment Filed: 07/25/2024 14:30 Note Text: CARE MANAGEMENT: ASSESSMENT AND DISCHARGE PLAN SERVICE DATE: July 25, 2024 SERVICE TIME: 2:29 PM PCP: Latrell Jack MD Primary Contact: Extended Emergency Contact Information Primary Emergency Contact: Alexandria Cramer Address: [address] [place] [address] Relation: Relative Admission Status: Inpatient Insurance Provider: MEDICARE A AND B Discharge Planning requested by: Per Department Practice Potential Transition Plans To Be Determined Advance Directives Current Advance Directive: None Process Design Engineer Attempted to Assist with AD Completion: Yes Action: Education Provided Newcomb of Choice Explained: Newcomb of Choice Given: No Reason Not Given: [...] Obrien DATE: July 25, 2024 TIME: 2:29 [facility]01-16-2025 NoteHNO ID: [id number] Author: DERREK MARSHALL RN Service: Care Management Author Type: Registered Nurse Type: Care Mgt Progress Note Filed: 07/25/2024 14:28 Note Text: CARE MANAGEMENT: ASSESSMENT AND DISCHARGE PLAN SERVICE DATE: July 25, 2024 SERVICE TIME: 2:28 PM PCP: Latrell Jack MD Primary Contact: Extended Emergency Contact Information Primary Emergency Contact: Alexandria Cramer Address: [address] [place] [address] Relation: Relative Admission Status: Inpatient Insurance Provider: MEDICARE A AND B Discharge Planning requested by: Per Department Practice Potential Transition Plans To Be Determined Advance Directives Current Advance Directive: None Process Design Engineer Attempted to Assist with AD Completion: Yes Action: Education Provided Newcomb of Choice Explained: Newcomb of Choice Given: No Reason Not Given: [...] Obrien DATE: July 25, 2024 TIME: 2:27 [facility]01-16-2025 NoteHNO ID: [id number] Author: YAN MOSER ? Service: General Surgery [...] Line Duration Peripheral 07/24/24 0900 [facility] Right Hand 20 Gauge <1 day Peripheral 07/24/24 1111 Left Hand 18 Gauge <1 day SURGERY/PROCEDURE: Procedure(s) and Anesthesia Type: * LAPAROSCOPIC RPR PARAESOPHAGEAL HERNIA W/O FUNDOPLASTY W/ MESH - General [facility]01-15-2025 NoteHNO ID: [id number] Author: NENA SEPULVEDA MD Service: General Surgery [...] MD SERVICE DATE: 07/24/24 SERVICE TIME: 7:09 [facility]01-15-2025 NoteHNO ID: [id number] Author: TRIP GRAY RN Service: Nursing Author Type: Registered Nurse Type: Progress Notes Filed: 07/24/2024 18:55 Note Text: [id number] Paged [phone] to notify that patient came up from PACU with a rdz in but no active rdz order. Requesting order to be placed.[facility] 07-24-2024 NoteHNO ID: [id number] Author: TRIP GRAY RN Service: Nursing Author Type: Registered Nurse Type: Progress Notes Filed: 07/24/2024 18:25 Note Text: Admission/Transfer Note PATIENT NAME: Shey Obrien Patient Location: [place] [address]/[facility]- Room: [place] [address] Patient admitted from PACU via bed in stable condition. Actions taken: Patient oriented to room, call light function, prescribed activities, Patient rights, and Quiet at night. Patient belongings with patient. This note was completed by: Trip GrayTrihealth Good Sam[facility]itan [facility] 07-24-2024 NoteHNO ID: [id number] Author: BETTY ALLEN APRN.KEYBOARD ACTION ASSEMBLER Service: ? Author Type: Nurse Associate Veterinarian Type: Anesthesia Procedure Notes Filed: 07/24/2024 11:23 Note Text: ANESTHESIOLOGY PROCEDURE NOTE Airway General Information Procedure Start Time/Medication Administration: 07/24/2024 11:09 AM Procedure End Time: 07/24/2024 11:09 AM Patient location during procedure: OR Timeout Performed Pre-procedure: timeout performed Consent Obtained: Yes Patient identity confirmed: arm band, care telesales team leader and patient Staffing KEYBOARD ACTION ASSEMBLER: Betty Allen APRN.KEYBOARD ACTION ASSEMBLER Performed by: ELIZABETH Indications and Patient Condition [...] July 24, 2024 TIME: 11:23 AM CSN: [id number] [facility]01-15-2025 NoteHNO ID: [id number] Author: ALLEN, BETTY, COAL HANDLING SUPERVISOR.KEYBOARD ACTION ASSEMBLER Service: ? Author Type: Nurse Associate Veterinarian Type: Anesthesia Procedure Notes Filed: 07/24/2024 11:23 Note Text: ANESTHESIOLOGY PROCEDURE NOTE PIV General Information Procedure Start Time/Medication Administration: 07/24/2024 11:11 AM Procedure End Time: 07/24/2024 11:11 AM Patient Location: OR Staffing KEYBOARD ACTION ASSEMBLER: Betty Allen APRN.KEYBOARD ACTION ASSEMBLER Performed by: KEYBOARD ACTION ASSEMBLER Preparation Sterility Preparation: hand hygiene performed prior to procedure, surgical cap used, mask used, skin prep agent completely dried prior to procedure Site Prep: alcohol Procedure Details Indication: need for IV access Needle Size/Type: 18 gauge angiocath Orientation: Left Location: Hand Imaging Guidance Used: No SIGNATURE: Betty Allen APRN.CRNA PATIENT NAME: Shey Obrien DATE: July 24, 2024 TIME: 11:22 AM CSN: [id number] Health [facility]01-15-2025 NoteHNO ID: [id number] Author: ABDELRAHMAN HE MD Service: General Surgery Author Type: Resident Type: Plan of Care Filed: 07/24/2024 10:30 Note Text: Patient consented for study? Yes STUDY TITLE: MVP Trial: Mesh Vs Pledgets for repair of paraesophageal hernia repair: a randomized, blinded, parallel group trial IRB NO.: #[id number] DENTAL ASSISTANT: Willard Ramirez MD COORDINATOR/Research Nurse/Mold Presser: Abdelrahman He MD Phone/email: [phone], [email or web address] Consenting was performed in person [...] bariatric procedure to reduce stomach volume [] [x][facility] 07-23-2024 History of Present illness Narrative* Humera Murphy RT(R) - 07/23/2024 2:10 PM EST Radiology [...] PATIENT PRESENTS WITH AN IMPLANTABLE OR ATTACHED REFRIGERATION SERVICE INSPECTOR: No RADIOLOGY DEPARTMENT: General X-ray: Exam(s) Completed: Chest X-Ray PERIPHERAL IV DATA: Not applicable SIGNED BY: RIANNA Hatfield) July 23, 2024 1:59 PM documented in this encounterSt. Mary'S [facility]01-14-2025 NoteHNO ID: [id number] Author: HUMERA MURPHY RT(R) Service: Radiology Author Type: Technologist Type: [...] PATIENT PRESENTS WITH AN IMPLANTABLE OR ATTACHED REFRIGERATION SERVICE INSPECTOR: No RADIOLOGY DEPARTMENT: General X-ray: Exam(s) Completed: Chest X-Ray PERIPHERAL IV DATA: Not applicable SIGNED BY: RT Liu(R) July 23, 2024 1:59 [facility]01-14-2025 Instructions* Patient Instructions* Jamil Delacruz PA-C - 07/23/2024 1:27 PM EST Images from the original note were not included. [facility] PATIENT PREOPERATIVE INSTRUCTIONS Dr. Boyd has scheduled you for your procedure at this surgery center: [facility] [place] Scheduling Office: [phone] --[phone] [place] [id number]. Please read below carefully for your personalized [...] office. If you are currently using a tbdh-nxx-krhw injectable or oral medication for diabetes or [...] Procedures: - YOU MUST HAVE A RESPONSIBLE BLEACHING SUPERVISOR TAKE YOU HOME. A CAREER TECHNICAL SUPERVISOR OR SLATE MIXER CANNOT BE MADE A RESPONSIBLE BLEACHING SUPERVISOR. - We recommend that a responsible [...] call the Monday before. Your surgeon s receptionist scheduler will tell you what time to call the office. - If you have not reached the departmental receptionist scheduler by 5 P.M., call [phone] after 5 P.M. the day before your surgery. Please be aware that emergency situations arise, which may delay or change your surgical time. If this happens, we will notify you as soon as possible and regret any inconvenience. If you already have an Advance Directive, please fax a copy to [phone] or email to for it to be [...] day. Jamil Delacruz PA-C documented in this encounterSt. Mary'[facility]01-14-2025 History and physical note * Jamil Delacruz [...] COVID-19 original vaccine, age 12+ yr, monovalent (Pansieve- BIONTECH - PURPLE TOP) Only the first [...] pain, CHF, congenital heart defect, DVT/PE, recent HI and murmur/valvular heart disease. GI: See HPI. [...] 404 QTC Calculation (Bazett) 423 Calculated P [place] 32 Calculated R [place] 14 Calculated T [place] 54 Impression NORMAL SINUS RHYTHM NORMAL ECG No results found for this or any previous visit (from the past 33202 hour(s)). Instructions Given to Patient: Instructions located in the after visit summary. Patient given verbal and written preop instructions and voices comprehension and compliance. SIGNATURE: Jamil Delacruz PA-C PATIENT NAME: Shey Obrien DATE: July 23, 2024 TIME: 1:07 PM PAGER/CONTACT #: [facility]01-14-2025 History and physical note* Jamil Delacruz PA-C [...] COVID-19 original vaccine, age 12+ yr, monovalent (Pansieve- BIONTECH - PURPLE TOP) Only the first [...] pain, CHF, congenital heart defect, DVT/PE, recent HI and murmur/valvular heart disease. GI: See HPI. [...] 404 QTC Calculation (Bazett) 423 Calculated P [place] 32 Calculated R [place] 14 Calculated T [place] 54 Impression NORMAL SINUS RHYTHM NORMAL ECG No results found for this or any previous visit (from the past 41613 hour(s)). Instructions Given to Patient: Instructions located in the after visit summary. Patient given verbal and written preop instructions and voices comprehension and compliance. SIGNATURE: Jamil Delacruz PA-C PATIENT NAME: Shey Obrien DATE: July 23, 2024 TIME: 1:07 PM PAGER/CONTACT #: documented in this encounterSt. Mary'S [facility]12-23-2024 Telephone encounter Note * Telephone Encounter - Trip Lieberman MA - 07/01/2024 1:22 PM EST Sending this to Dr [facility] [id number] Miscellaneous Notes* Telephone Encounter - Trip Lieberman MA - 07/01/2024 1:22 PM EST Sending this to Dr Jack * Telephone Encounter - Sandra Arcos NP - 06/29/2024 11:46 AM EST Did we call Dr. Jack's office and let him know that we took over the Aricept. If not can we please. I do not see it documented. Thank you documented in this encounterResearch Medical CenterCoqjolngje66-75-7565 Telephone encounter Note* Telephone Encounter - Sandra Arcos NP - 06/29/2024 11:46 AM EST Did we call Dr. Jack's office and let him know that we took over the Aricept. If not can we please. I do not see it documented. Thank you Research Medical CenterLojqotcins26-10-6537 Telephone encounter Note* Telephone Encounter - Cassy Donnelly - 06/13/2024 11:39 AM EST Patient would like her Losartan 50 mg and Pantoprazole 40 mg changed to [facility] pharmacy insteadof [facility] Research Medical CenterZogzoftora53-04-5699 Miscellaneous Notes* Telephone Encounter - Cassy Donnelly - 06/13/2024 11:39 AM EST Patient would like her Losartan 50 mg and Pantoprazole 40 mg changed to [facility] pharmacy insteadof [facility] documented in this [facility]11-06-2024 History of Present illness Narrative* Latrell [...] OTC PRN. COPD (chronic obstructive pulmonary disease) ([facility]) Symptoms stable and continue spiriva. [...] index (BMI) of38.0 to 38.9 in adult ([facility]) Weight loss indicated. documented in this encounterResearch Medical CenterZkfcbmxqlf41-99-5380 NoteHNO ID: [id number] Author: XAVIER BOYD MD Service: ? Author [...] blinded, parallel group trial IRB NO.: #[id number] DENTAL ASSISTANT: Pa Prakash MD COORDINATOR/Research Nurse/Mold Presser: Abdelrahman He MD Phone/email: [phone], [email or web address] Consenting was performed in person prior [...] bariatric procedure to reduce stomach volume [] [x][facility] 04-29-2024 History of Present illness Narrative* [...] blinded, parallel group trial IRB NO.: #[id number] DENTAL ASSISTANT: Pa Prakash MD COORDINATOR/Research Nurse/Mold Presser: Abdelrahman He MD Phone/email: [phone], [email or web address] Consenting was performed in person prior [...] Yan Moser - 04/29/2024 11:16 AM EDT [facility] - HISTORY AND [...] UGI reviewed and uploaded. Large Type III [facility]. ASSESSMENT/PLAN: chani Obrien is a 73 year [...] Moser MD General Surgery documented in this encounterSt. Mary'S [facility]10-21-2024 NoteHNO ID: [id number] Author: YAN MOSER, ? Service: ? Author Type: Physician Type: Progress Notes Filed: 04/29/2024 12:10 Note Text: [facility] - HISTORY [...] - Consents obtained Yan Moser MD General SurgeryTrihealth Good Sam[facility]10-21-2024 Nurse Note* Diomedes Fiore MA - 04/29/2024 10:50 AM EDT What is the reason for your visit today? Consult Who is your referring physician? Dafne Spears Are you having poor oral intake? YES Have you had unintentional weight loss of 15 lbs/7 Kg in the last 3-6 months? NO Bowels: soft, more frequent Wound: none Temperature: No Drains: No [facility]10-21-2024 Nurse Note* Diomedes Fiore MA - 04/29/2024 10:50 AM EDT What is the reason for your visit today? Consult Who is your referring physician? Dafne Spears Are you having poor oral intake? YES Have you had unintentional weight loss of 15 lbs/7 Kg in the last 3-6 months? NO Bowels: soft, more frequent Wound: none Temperature: No Drains: No documented in this encounterSt. Mary'S [facility]10-14-2024 Telephone encounter Note * Telephone Encounter - [place], Danielle Palacio - 04/22/2024 5:32 PM EDT Spoke with PT she state no prior surgeries [facility]10-14-2024 Miscellaneous Notes* Telephone Encounter - [place] - 04/22/2024 5:32 PM EDT Spoke with PT she state no prior surgeries documented in this encounterSt. Mary'S [facility]10-03-2024 History of Present illness Narrative* Mao Morrow, [...] No history of alcohol/substance abuse. Reformed smoker. [place] language Malagasy. Completed high school education as well as some college. Described self asa C student. 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 Motor/Speed of Processing: Left-handed. Heel Former strength 31st %ile with left-hand, 18th %ile [...] Learning of a word list 58th %ile (5-6-16-10-12), delayed recall 50th %ile. Recognition discriminability 69th [...] of this individual. Please contact me with [employer] at [phone]. documented in this encounterResearch Medical CenterXzesmqaovb03-23-7013 NoteEndoscopic Procedure Report - Other Patient: SHEY [...] 1 tab, Oral, Daily Flonase 0.05 mg/inh [place]: 2 spray(s), Nasal, Daily, Refill(s) 0, Dry [...] Home Medications (13) Active albuterol 0.083% Inh Malrin 3 mL aspirin 81 mg Oral EC Tab 81 mg = 1 tab(s), Oral, Daily atorvastatin 40 mg Tab 40 mg = 1 tab(s), Oral, Daily Calcium 1 tab, Oral, Daily donepezil 5 mg Tab famotidine 40 mg Tab 40 mg = 1 tab(s), Oral, Once a day (at bedtime) Flonase 0.05 mg/inh [place] 2 spray(s), Nasal, Daily losartan 25 mg [...] All Problems HTN (hypertension) / SNOMED CT 3537168480 / Confirmed Chronic obstructive pulmonary disease / SNOMED CT 98308714 / Confirmed Insomnia / SNOMED CT 340146488 / Confirmed Seasonal allergic rhinitis / SNOMED CT 076494975 / Confirmed Dyslipidemia / SNOMED CT 3513082392 / Confirmed BMI 39.0-39.9,adult / SNOMED CT 811997544 / Confirmed Morbid obesity / SNOMED CT 124832721 / Confirmed GERD (gastroesophageal reflux disease) / SNOMED CT 910307823 / Confirmed Hiatal hernia / SNOMED CT 727458855 / Confirmed EDWIN (obstructive sleep apnea) / SNOMED CT 185497587 / Confirmed Lower extremity edema / SNOMED CT 500324766 / Confirmed TIA (transient ischemic attack) / SNOMED CT 547508352 / Confirmed Screening for malignant neoplasm of colon / SNOMED CT 250067421 / Confirmed Dysphagia / SNOMED CT 18450633 / Confirmed Histories Past Medical History: Resolved Hernia (976428111): Resolved. Sleep apnea (543673492): Resolved. Family History: Father Alcoholism Primary malignant neoplasm of lung COPD Mother Cardiac arrest Alzheimer's disease Procedure history: Colonoscopy (246177853) on 10/13/2023 at 73 Years. ORIF - Open reduction of fracture of ankle with internal fixation ([id number]). Meniscal repair (192767845). Tonsillectomy (561538832). Hand tendon repaired (972919102). Social History Social & Psychosocial Habits Alcohol [...] NTND Impression and Plan Impression: DYSPHAGIA [facility] OhioComment on above:Result Comment: wrong folder Electronically Signed By: Yovanny OLIVO, Dafne Torres\.maikol\Date and Time Signed: 03/20/24 12:47 [id number] History of Present illness Narrative* Mao Morrow, [...] No history of alcohol/substance abuse. Reformed smoker. [place] language Malagasy. Completed high school education as well as some college. Describes itself as a C student. 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 Single, never , no children. Resides with her niece and boyfriend. MEDICAL HISTORY/MEDICATION: Past Medical History: Diagnosis Date Anxiety 08/2023 At high risk for falls Benign essential hypertension ([facility]/HCC) Bilateral primary osteoarthritis of knee Chronic bilateral low back pain with left-sided sciatica Chronic insomnia COPD, mild ([facility]/HCC) Dyslipidemia ([facility]) Edema of extremities Encounter for long-term (current) use of medications Fracture of distal end of fibula, sequela Ganglion cyst of flexor tendon sheath of finger, left Hiatal hernia with gastroesophageal reflux disease without esophagitis Memory loss Morbid obesity with body mass index (BMI) of 40.0 to 49.9 ([facility]) EDWIN (obstructive sleep apnea) Osteopenia of lumbar spine Painful orthopaedic hardware (HCC) ([facility]) Postmenopausal Seasonal allergic rhinitis due to pollen [...] of this individual. Please contact me with anyquestions at [phone]. documented in this encounterResearch Medical CenterQdocsdomji25-00-1548 Hospital Discharge instructions Patient Education 03/20/2024 13:07:59 [...] Follow these instructions at home: Medicines Take pqfk-ktb-ajqexnw and prescription medicines only as told by [...] or drinks. ?Garlic or onions. ?Spicy foods. ?[place] fruits. ?Tomato-based foods. ?Fatty or fried foods. [...] provider. Document Revised: 01/09/2023 Document Reviewed: 01/09/2023 [employer] Patient Education 2023 [employer]. 03/20/2024 13:07:56 Gastritis, Adult, Gyuo-fi-Pbme Gastritis, Adult Gastritis is irritation and swelling [...] Follow these instructions at home: Medicines Take cxgh-quh-hrgmehr and prescription medicines only as told by [...] provider. Document Revised: 10/30/2021 Document Reviewed: 10/30/2021 [employer] Patient Education 2023 [employer]. 03/20/2024 13:07:48 Hiatal Hernia Hiatal Hernia A [...] reduce GERD symptoms. Medicines. These may include: ?Zcbs-oam-xyggdwc antacids. ?Medicines that make your stomach empty [...] may include: ?Fatty foods, like fried foods. ?[place] fruits, like oranges or lemon. ?Other foods [...] Do not drink alcohol. General instructions Take cncn-suf-inigvme and prescription medicines only as told by [...] provider. Document Revised: 08/23/2022 Document Reviewed: 08/23/2022 [employer] Patient Education 2023 [employer]. 03/20/2024 13:07:46 Endoscopy, Care After Procedure [facility] Endoscopy Care After Procedure Please read the instructions outlined below and refer to this sheet in the next few weeks. These discharge instructions provide you with general information on caring for yourself [facility]. Your doctor may also give you [...] Document Re-Released: 12/18/2006 ExitCare Patient Information 2009 [employer]. Follow Up Care 02/26/2024 09:52:05 With:Yovanny OLIVO, SENAIT Sifuentes, [facility] Address: When: Unknown Comments:Call for any problems. Office will call to schedule follow up appointment [facility] 09-11-2024 Evaluation + Plan note Future Scheduled Tests Radiology* XR Esophagus 03/20/24 [facility] 09-11-2024 NotePatient Education - Text Endoscopy Care After Procedure Please read the instructions outlined below and refer to this sheet in the next few weeks. These discharge instructions provide you with general information on caring for yourself [facility]. Your doctor may also give you [...] Document Re-Released: 12/18/2006 ExitCare? Patient Information ?2009 [employer]. Gastroenterology Hiatal Hernia A hiatal hernia occurs [...] symptoms. ? Medicines. These may include: ? Ygui-ckd-dptqjip antacids. ? Medicines that make your stomach [...] ? Avoid putting pressu (more content not included)...[facility] 03-20-2024 NoteEndoscopic Procedure Report - Other [...] otherwise normal examined duodenum Images Procedure images: Rec_hd_video____49_155.jpg Rec_hd_video___35_581.jpg Rec_hd_video___25_745.jpg Rec_hd_video___15_326.jpg Rec1_hd_video_2023___00_14_566.jpg Rec1_hd_video_2023___00_01_833.jpg . Post-Procedure Complications: none. Estimated blood loss: [...] if surgery referral is indicated, will be orderedParkwood HospitalComment on above:Result Comment: Electronically Signed By: Yovanny OLIVO, Dafne Torres\.br\Date and Time Signed: 03/20/24 12:58 EDTOther Comment: Missing Attachment - attachment storage system not supported [id number] Can be viewed in source systemMissing Attachment - attachment storage system not supported [id number] Can be viewed [facility] systemMissing Attachment - attachment storage system not supported [id number] Can be viewed in source systemMissing Attachment - attachment storage system not supported [id number] Can be viewed in source systemMissing Attachment - attachment storage system not supported [id number] Can be viewed in source systemMissing Attachment - attachment storage system not supported [id number] Can be viewed in source [id number] NoteEndoscopic Procedure Report - Other Patient: SHEY [...] 1 tab, Oral, Daily Flonase 0.05 mg/inh [place]: 2 spray(s), Nasal, Daily, Refill(s) 0, Dry [...] a day (at bedtime) Flonase 0.05 mg/inh [place] 2 spray(s), Nasal, Daily losartan 25 mg [...] All Problems HTN (hypertension) / SNOMED CT 1261263425 / Confirmed Chronic obstructive pulmonary disease / SNOMED CT 24741746 / Confirmed Insomnia / SNOMED CT 856266575 / Confirmed Seasonal allergic rhinitis / SNOMED CT 597585140 / Confirmed Dyslipidemia / SNOMED CT 5752919323 / Confirmed BMI 39.0-39.9,adult / SNOMED CT 550001256 / Confirmed Morbid obesity / SNOMED CT 963251344 / Confirmed GERD (gastroesophageal reflux disease) / SNOMED CT 314527224 / Confirmed Hiatal hernia / SNOMED CT 179793396 / Confirmed EDWIN (obstructive sleep apnea) / SNOMED CT 341758927 / Confirmed Lower extremity edema / SNOMED CT 388849616 / Confirmed TIA (transient ischemic attack) / SNOMED CT 747607004 / Confirmed Screening for malignant neoplasm of colon / SNOMED CT 156789468 / Confirmed Dysphagia / SNOMED CT 25797219 / Confirmed Histories Past Medical History: Resolved Hernia (154951708): Resolved. Sleep apnea (052196523): Resolved. Family History: Father Alcoholism Primary malignant neoplasm of lung COPD Mother Cardiac arrest Alzheimer's disease Procedure history: Colonoscopy (791952842) on 10/13/2023 at 73 Years. ORIF - Open reduction of fracture of ankle with internal fixation (101704873617387). Meniscal repair (716214648). Tonsillectomy (001361156). Hand tendon repaired (088390803). Social History Social & Psychosocial Habits Alcohol [...] NTND Impression and Plan Impression: DYSPHAGIA [facility]: [facility] [place]Comment on above:Result Comment: Electronically Signed By: Yovanny OLIVO, Dafne Torres\.br\Date and Time Signed: 03/20/24 12:47 [id number] History of Present illness Narrative* Diomedes Fitzgerald, - 03/07/2024 11:30 AM EDT Images from the original note were not included. Chief Complaint Patient presents with Memory Loss Dysphagia Subjective Shey Obrien, 73 y.o., female, was referred back to Dr iFtzgerald for memory loss and dysphagia from Dr [...] high risk for falls Benign essential hypertension ([facility]) Bilateral primary osteoarthritis of knee Chronic bilateral [...] of lumbar spine Painful orthopaedic hardware (HCC) ([facility]) Postmenopausal Seasonal allergic rhinitis due to pollen [...] was counseled on the risks of stroke, HI, and sudden with EDWIN, along with the [...] instructions Return to clinic: documented in this encounterResearch Medical CenterKmqhgscokd84-72-5138 Note [id number] Evaluation + Plan noteExtracted from:Title:ANES Post-operative Note - GeneralAuthor:Shaji Bethea Jr., DO GDate:10/13/23 Plan Transfer/Discharge: Transfer/Discharge Discharge when meets criteria ( From PACU to Ambulatory Surgery Unit, and To home ). Extracted from:Title:ANES Pre-operative Note - EndoAuthor:Shaji Bethea Jr., DO GDate:10/13/23 Plan [place] [employer] Anesthesiologists (ASA) physical status classification: Class III. Anesthetic Preoperative Plan: Anesthesia General, and -TIVA.[facility]04-05-2024 Hospital Discharge instructions Patient Education 10/13/2023 [...] With:Pa WEBB Address: [address], [address] [place] [id number]- Business (1) When: only if needed [facility]04-05-2024 NotePatient: SHEY OBRIEN Age: 73 years Sex: Female : 1950 Associated Diagnoses: None Author: Pa WEBB MD Subjective no changes to & PFOhioHealth Van Wert HospitalComment on above:Result Comment: Electronically Signed By: Pa WEBB MD\.br\Date and Time Signed: 10/13/23 09:45 [id number] NoteChief Complaint consultation for colonoscopy [facility] Staff 72 year old female presents [...] a day (at bedtime) Flonase 0.05 mg/inh [place], 2 spray(s), Nasal, Daily losartan 25 mg [...] Alcoholism: Father. Alzheimer's di (more content not included)...[facility] HospitalComment on above:Result Comment: Electronically Signed By: TRACEY OLIOV, Pa Lynn\Date and Time Signed: 09/12/23 10:16 [id number] History of Present illness Narrative* Latrell Jack [...] General Surgery documented in this encounterResearch Medical [id number] NoteEXAMINATION: XR CHEST 1 V HISTORY: SHORTNESS [...] authenticated by: MEHNAZ SANTIAGO Date: 2021-11-02 16:39[facility]03-04-2022 NotePROCEDURE: XR ANKLE RT MIN [...] authenticated by: WILLARD ANAND Date: 2021-09-10 09:02[facility]03-04-2022 NotePROCEDURE: XR ANKLE RT 2V COMPARISON: 03/02/2020. HISTORY: Pain FINDINGS: 35 seconds of fluoroscopy. 5 fluoroscopic images Interval removal of internal fixation hardware. Components of 2 fractured screws across the tibiofibular syndesmosis remain on image #5 IMPRESSION: Removal of lateral fibular plate and screws Electronically authenticated by: WILLARD ANAND Date: 2021-09-10 08:30[facility] HospitalDis[facility] summary Author Tra Hobson [facility] CampusNote Date/TimeJune 2024 3:46pm[place] [address] Discharge Summary Signed Patient: Shey Obrien MR#: [id number] : 1950 Acct:[id number] Age/Sex: 74 / F Adm Date: 5 Loc: Room: [address] [place] [address]: Erik Kim MD Copies to: [...] boyfriend Employment: retired 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. Patient was treated with Remeron. She [...] Instructions: Important Contact Information You can call [facility] at [phone] any timeday or night if you have emergent questions or question regarding discharge instructions. If at anytime you are feeling an increase inyour psychiatric symptoms, call your physician or behavioral healthcare provider. If any time you have thoughts of harming yourself or others contact one of the following: Call (available 30/01) Crisis Text Line (available 30/01) text 4HOPE to 477963 [facility] Hope Line (available 8 a.m. Midnight) call [phone] ([phone]) Instructions: Depression in adults - Discharge instructions, [facility] [place] Instructions, Know your Meds [...] device 1 cap INHALATION DAILY Follow Up: [facility] [Outside] - 12/17/24 (manager of finance will call you tomorrow, if you miss [...] signed by Tra Hobson MD> 12/16/24 1546 [facility] Work Phone: Evaluation + Plan note Future Appointments Appointment Date:03/20/2024 12:15:00 PM Scheduled Provider: Location:[facility] Appointment Type:Surgery [facility] Evaluation note* Diagnosis Essential [...] 40.0-44.9, adult (Z68.41) documented in this encounter [facility]* Diagnosis Memory loss- Primary Word finding difficulty EDWIN on CPAP Other insomnia Other chronic pain Generalized anxiety disorder (CMS/HCC) Generalized anxiety disorder Severe episode of recurrent major depressive disorder, 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) documented in this encounter [facility]* Diagnosis Paraesophageal hernia- Primary Diaphragmatic hernia without mention of obstruction or gangrene [facility] Diagnosis Preoperative examination- Primary Preoperative examination, unspecified Paraesophageal hernia Diaphragmatic hernia without mention of obstruction or gangrene Abnormal results of liver function studies Nonspecific abnormal results of liver function study Abnormal coagulation profile [facility] Diagnosis Essential hypertension, benign (CMS/HCC)- [...] (BMI) of38.0 to 38.9 in adult (CMS/HCC) documented in this encounter [facility]* Diagnosis Essential hypertension, benign [...] index (BMI) of38.0 to 38.9 in adult ([facility]) Essential hypertension, benign ([facility]) Essential hypertension, benign Hiatal hernia with gastroesophageal reflux disease without esophagitis documented in this encounter [facility]* Diagnosis Memory loss- Primary Word finding difficulty EDWIN on CPAP Other insomnia Other chronic pain Generalized anxiety disorder ([facility]) Generalized anxiety disorder documented in this encounter [facility]* Diagnosis Memory loss- Primary 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[facility]) Senile dementia, uncomplicated Mild cognitive impairment Mild cognitive impairment, so stated EDWIN (obstructive sleep apnea) Obstructive sleep apnea (adult) (pediatric) documented in this encounter [facility]* Diagnosis Essential hypertension, benign ([facility]/HCC)- Primary Essential hypertension, benign Chronic obstructive pulmonary disease, unspecified COPD type ([facility]/HCC) Primary insomnia Persistent disorder of initiating or maintaining sleep Primary osteoarthritis of both knees Hiatal hernia with gastroesophageal reflux disease without esophagitis Seasonal allergic rhinitis due to pollen Screening for colon cancer Special screening for malignant neoplasms, colon Morbid obesity due to excess calories ([facility]) Dyslipidemia ([facility]) Other and unspecified hyperlipidemia Encounter for long-term (current) use of medications Encounter for long-term (current) use of other medications Body mass index [BMI] 40.0-44.9, adult (Z68.41) Essential hypertension, benign ([facility]/HCC)- Primary Essential hypertension, benign Dysphagia, unspecified type 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[facility]) Senile dementia, uncomplicated Chronic obstructive pulmonary disease, unspecified COPD type ([facility]/HCC) Hiatal hernia with gastroesophageal reflux disease without [...] (BMI) of38.0 to 38.9 in adult (CMS/HCC) Memory loss- [...] smoker -CXR pending documented [facility] this [facility]* Diagnosis Pre-op evaluation- Primary Preoperative examination, [...] and respiratory abnormality [facility]* Diagnosis Essential hypertension, benign (CMS/HCC)- [...] (BMI) of38.0 to 38.9 in adult (CMS/HCC) Primary insomnia Persistent disorder of initiating or maintaining sleep [facility] encounter [facility]* Diagnosis Essential hypertension, benign [...] (BMI) of38.0 to 38.9 in adult (CMS/HCC) Primary insomnia- Primary Persistent disorder of initiating or maintaining sleep documented in this encounter [facility] CenterEvaluation [facility]* Diagnosis Pre-op evaluation- Primary Preoperative examination, unspecified Preoperative examination Preoperative examination, unspecified Paraesophageal hernia Diaphragmatic hernia without mention of obstruction or gangrene Chronic obstructive pulmonary disease, unspecified COPD type ([facility]) CHENEY (dyspnea on exertion) Other [...] aftercare following surgery [facility] this [facility]* Diagnosis Essential hypertension, benign (CMS/HCC)- [...] index (BMI) of38.0 to 38.9 in adult ([facility]) Medicare annual wellness visit, subsequent- Primary Prediabetes Other abnormal glucose Dyslipidemia ([facility]) Other and unspecified hyperlipidemia Encounter for long-term (current) use of medications Encounter for long-term (current) use of other medications Essential hypertension, benign (CMS/HCC) Essential hypertension, benign Class 2 severe obesity due to excess calories with serious comorbidity and body mass index (BMI) of36.0 to 36.9 in adult ([facility]) Chronic obstructive pulmonary disease, unspecified COPD type (CMS/HCC) 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[facility]) Senile dementia, uncomplicated documented [facility]* Diagnosis Essential hypertension, benign ([facility]/HCC)- Primary Essential hypertension, benign Chronic obstructive pulmonary disease, unspecified COPD type (CMS/HCC) Primary insomnia Persistent disorder of initiating or maintaining sleep Primary osteoarthritis of both knees Hiatal hernia with gastroesophageal reflux disease without esophagitis Seasonal allergic rhinitis due to pollen Screening for colon cancer Special screening for malignant neoplasms, colon Morbid obesity due to excess calories (CMS/[facility]) Dyslipidemia (CMS/HCC) Other and unspecified hyperlipidemia Encounter for long-term (current) use of medications Encounter for long-term (current) use of other medications Body mass index [BMI] 40.0-44.9, adult (Z68.41) Essential hypertension, benign ([facility]/HCC)- Primary Essential hypertension, benign Dysphagia, unspecified type 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[facility]/HCC) Senile dementia, uncomplicated Chronic obstructive pulmonary disease, [...] index (BMI) of38.0 to 38.9 in adult ([facility]) Medicare annual wellness visit, subsequent- Primary Prediabetes Other abnormal glucose Dyslipidemia ([facility]) Other and unspecified hyperlipidemia Encounter for long-term (current) use of medications Encounter for long-term (current) use of other medications Essential hypertension, benign ([facility]/HCC) Essential hypertension, benign Class 2 severe obesity due to excess calories with serious comorbidity and body mass index (BMI) of36.0 to 36.9 in adult ([facility]) Chronic obstructive pulmonary disease, unspecified COPD type (CMS/HCC) 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[facility]) Senile dementia, uncomplicated Chronic obstructive pulmonary disease, unspecified COPD type ([facility]/HCC) Primary insomnia Persistent disorder of initiating or maintaining sleep documented in this encounter [facility]* Diagnosis Essential hypertension, benign ([facility]/HCC)- Primary Essential hypertension, benign Chronic obstructive pulmonary disease, unspecified COPD type ([facility]/HCC) Primary insomnia Persistent disorder of initiating or maintaining sleep Primary osteoarthritis of both knees Hiatal hernia with gastroesophageal reflux disease without esophagitis Seasonal allergic rhinitis due to pollen Screening for colon cancer Special screening for malignant neoplasms, colon Morbid obesity due to excess calories ([facility]) Dyslipidemia ([facility]) Other and unspecified hyperlipidemia Encounter for long-term (current) use of medications Encounter for long-term (current) use of other medications Body mass index [BMI] 40.0-44.9, adult (Z68.41) Essential hypertension, benign ([facility]/HCC)- Primary Essential hypertension, benign Dysphagia, unspecified type 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[facility]/HCC) Senile dementia, uncomplicated Chronic obstructive pulmonary disease, unspecified COPD type (CMS/HCC) Hiatal hernia with gastroesophageal reflux disease without esophagitis Primary osteoarthritis of both knees Primary insomnia Persistent disorder of initiating or maintaining sleep EDWIN (obstructive sleep apnea) Obstructive sleep apnea (adult) (pediatric) Essential hypertension, benign ([facility]/HCC)- Primary Essential hypertension, benign Chronic obstructive pulmonary [...] index (BMI) of38.0 to 38.9 in adult ([facility]) Medicare annual wellness visit, subsequent- Primary Prediabetes Other abnormal glucose Dyslipidemia ([facility]) Other and unspecified hyperlipidemia Encounter for long-term (current) use of medications Encounter for long-term (current) use of other medications Essential hypertension, benign ([facility]/HCC) Essential hypertension, benign Class 2 severe obesity due to excess calories with serious comorbidity and body mass index (BMI) of36.0 to 36.9 in adult ([facility]) Chronic obstructive pulmonary disease, unspecified COPD type ([facility]/HCC) 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[facility]) Senile dementia, uncomplicated Primary insomnia Persistent disorder of initiating or maintaining sleep Chronic obstructive pulmonary disease, unspecified COPD type ([facility]/HCC) documented in this encounter [facility] HealthcareEvaluation note* Diagnosis Essential hypertension, benign ([facility]/HCC)- Primary Essential hypertension, benign Chronic obstructive pulmonary disease, unspecified COPD type (CMS/HCC) Primary insomnia Persistent disorder of initiating or maintaining sleep Primary osteoarthritis of both knees Hiatal hernia with gastroesophageal reflux disease without esophagitis Seasonal allergic rhinitis due to pollen Screening for colon cancer Special screening for malignant neoplasms, colon Morbid obesity due to excess calories ([facility]) Dyslipidemia ([facility]) Other and unspecified hyperlipidemia Encounter for long-term (current) use of medications Encounter for long-term (current) use of other medications Body mass index [BMI] 40.0-44.9, adult (Z68.41) Essential hypertension, benign ([facility]/HCC)- Primary Essential hypertension, benign Dysphagia, unspecified type 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[facility]/HCC) Senile dementia, uncomplicated Chronic obstructive pulmonary disease, unspecified COPD type ([facility]/HCC) Hiatal hernia with gastroesophageal reflux disease without esophagitis Primary osteoarthritis of both knees Primary insomnia Persistent disorder of initiating or maintaining sleep EDWIN (obstructive sleep apnea) Obstructive sleep apnea (adult) (pediatric) Essential hypertension, benign ([facility]/HCC)- Primary Essential hypertension, benign Chronic obstructive pulmonary disease, unspecified COPD type ([facility]/HCC) Hiatal hernia with gastroesophageal reflux disease without esophagitis EDWIN (obstructive sleep apnea) Obstructive sleep apnea (adult) (pediatric) Primary osteoarthritis of both knees Primary insomnia Persistent disorder of initiating or maintaining sleep Class 2 severe obesity due to excess calories with serious comorbidity and body mass index (BMI) of38.0 to 38.9 in adult ([facility]) Medicare annual wellness visit, subsequent- Primary Prediabetes Other abnormal glucose Dyslipidemia ([facility]) Other and unspecified hyperlipidemia Encounter for long-term (current) use of medications Encounter for long-term (current) use of other medications Essential hypertension, benign ([facility]) Essential hypertension, benign Class 2 severe obesity due to excess calories with serious comorbidity and body mass index (BMI) of36.0 to 36.9 in adult ([facility]) Chronic obstructive pulmonary disease, unspecified COPD type ([facility]/HCC) 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[facility]) Senile dementia, uncomplicated Degenerative lumbar spinal stenosis- Primary Spinal stenosis of lumbar region Chronic obstructive pulmonary disease, unspecified COPD type (CMS/HCC) documented in this encounter [facility] HealthcareEvaluation note* Diagnosis Essential hypertension, benign- Primary Essential hypertension, benign Chronic obstructive pulmonary disease, unspecified COPD type (HCC) Primary insomnia Persistent disorder of initiating or maintaining sleep Primary osteoarthritis of both knees Hiatal hernia with gastroesophageal reflux disease without esophagitis Seasonal allergic rhinitis due to pollen Screening for colon cancer Special screening for malignant neoplasms, colon Morbid obesity due to excess calories ([facility]) Dyslipidemia Other and unspecified hyperlipidemia Encounter for [...] index (BMI) of38.0 to 38.9 in adult ([facility]) Medicare annual wellness visit, subsequent- Primary Prediabetes Other abnormal glucose Dyslipidemia Other and unspecified hyperlipidemia Encounter for long-term (current) use of medications Encounter for long-term (current) use of other medications Essential hypertension, benign Essential hypertension, benign Class 2 severe obesity due to excess calories with serious comorbidity and body mass index (BMI) of36.0 to 36.9 in adult ([facility]) Chronic obstructive pulmonary disease, [...] hazards to health documented in this encounter [facility] HealthcareHospital course Narrative No data available for this section [facility] No data available for this section [facility] Discharge instructionsAmbulatory Orders* Referral to ENT Time Frame: 04/10/25, Location: None Selected * Referral to Orthopedic Surgery Time Frame: 04/10/25, Location: None Selected [facility] Work Phone: Progress note No data available for this section [facility] (narrative)* Consultation (Routine) - Pending ReviewSpecialtyDiagnoses / ProceduresReferred By Contact Referred To ContactGeneral Surgery Diagnoses Screening for colon cancer Procedures [place] [facility]ICE/[facility] 60 MINUTES Latrell Jack MD [address] [place] [address] [place] [address] [place] [address] Referral IDStatusReasonStart DateExpiration DateVisits RequestedVisits [id number] Review Specialty Services Required / [facility] Summary Purpose Family History No [...] No December 17 2:30pm Hospital Course Note [facility] SURGERY Clinical Discharge Summary PERSON INFORMATION Name SHEY OBRIEN Age 68 Years 52 Sex FEMALE Language Malagasy PCP LATRELL JACK Marital Status Single Med Service Ambulatory Surgery Acct# Arrival 02/04/19 11:44:00 Visit Reason SURGERY - RELEASE TRIGGER FINGER LEFT RING FINGER AND E/O CYST LEFT RING FINGER Acuity LOS 012 05:38 Address: [address] [place] [id number] Comment: PROVIDER INFORMATION VITALS INFORMATION Vital Sign [...] (more content not included)... Reason for Referral SpecialtyDiagnoses / ProceduresReferred By ContactReferred To ContactCT IMAGING Diagnoses Postoperative visit Procedures CT CHEST WO IVCON DIAGNOSTIC COMPUTED TOMOGRAPHY THORAX W/O CNTRST Katarzyna Snyder, COAL HANDLING SUPERVISOR.CARDIOPULMONARY TECHNOLOGIST [address] [place], [place] [id number] [facility] [place] [address] Referral IDStatusReasonStprovidence DateExpiration DateVisits RequestedVisits [id number] Request Auto-Generated Referral /[id number] / ProceduresReferred By ContactReferred To ContactRadiology Diagnoses Memory loss Procedures MR brain wo contrast Diomedes Fitzgerald, [address] [place] [id number] Referral IDStatusReasonStart DateExpiration DateVisits RequestedVisits [id number] Review/[id number] / ProceduresReferred By ContactReferred To Contact Diagnoses Preoperative examination Paraesophageal hernia Procedures REFER TO [facility]IM[facility] OFFICE/[facility] 60 MINUTES Katarzyna Carter, COAL HANDLING SUPERVISOR.CARDIOPULMONARY TECHNOLOGIST [address] [place], [place] [id number] Referral IDStatusReasonStart DateExpiration DateVisits RequestedVisits [id number] PCP Requested Referral /[id number] / ProceduresReferred By ContactReferred To ContactB[facility] Diagnoses Preoperative examination Paraesophageal hernia Procedures ECG COMPLETE ECG ROUTINE ECG W/LEAST 12 LDS W/I&R Katarzyna Carter, COAL HANDLING SUPERVISOR.CARDIOPULMONARY TECHNOLOGIST [address] [place] [address] [facility] [place] [address] [facility] [place] [address] Referral IDStatusReasonStart DateExpiration DateVisits RequestedVisits [id number] Request Auto-Generated Referral Chief Complaint and Reason for Visit Chief Complaint Admit Date January 21, 2025 3:32 pm Hospital [facility] [place] April 10, 2025 11:27am Reason for Visit [...] 032024 3:29pm Dysfunction of left eustachian tube Apro 2024 11:27am Essential hypertension, benign April 102024 11:27am Primary osteoarthritis, left shoulder Oc 2024 11:27am Tinnitus April 10, 2025 11 :27am Chief Complaint Admit Date Hospital Follow[facility] [place] April 10, 2025 11:27am April 23, 2025 3 :04pm TB CONSULT DR JACK LT SHOULDER PAIN WX [facility] April 24, 2025 10:39am Chief Complaint Admit Date Hospital Follow[facility] [place] April 10, 2025 11:27am April 23, 2025 3 :04pm TB CONSULT DR JACK LT SHOULDER PAIN WX [facility] April 24, 2025 10:39am Established Patient April [...] 032024 3:29pm Dysfunction of left eustachian tube Apro 2024 11:27am Essential hypertension, benign April 102024 [...] Primary osteoarthritis of both knees Apr 1:07pm Chief Complaint Admit Date Hospital [facility] April 10, 2025 11:27am BH April 23, 2025 3 :04pm [facility] CONSULT DR JACK LT SHOULDER PAIN WX [facility] April 24, 2025 10:39am Established Patient April 29, 2025 1 :07pm Follow up 3 month May 08, 2025 1 2:27pm Reason for Visit Admit Date Dysfunction of left eustachian tube Apro 2024 11:27am Essential hypertension, benign April 102024 [...] April 102024 1:07pm GERD without esophagitis April 29, 025 1:07pm EDWIN (obstructive sleep apnea) April 292024 1:07pm Primary insomnia April 29, 2025 1 :07pm Primary osteoarthritis of both knees Apr 1:07pm Anxiety May 08, 2025 1 2:27pm Major depressive disorder, recurrent, mo derate May 08, 2025 12:27pm Memory loss May 08, 2025 1 2:27pm Primary insomnia May 08, 2025 1 2:27pm 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, 2025 1 2:27pm Obstructive sleep apnea syndrome May 08, 2025 12:27pm Additional Source Comments INFORMATION SOURCE (unrecogn ized section and content) DATE CREATED AUTHOR 02/17/2019 [facility] DATE CREATED AUTHOR AUTHOR'S ORGANIZ ATION 08/03/2022 [facility] DATE CREATED AUTHOR AUTHOR'S ORGANIZ ATION 03/28/2024 [facility] DATE CREATED AUTHOR AUTHOR'S ORGANIZ ATION 04/04/2024 [facility] DATE CREATED AUTHOR AUTHOR'S ORGANIZ ATION 12/13/2024 [facility] DATE CREATED AUTHOR AUTHOR'S ORGANIZ ATION 12/17/2024 [facility] DATE CREATED AUTHOR AUTHOR'S ORGANIZ ATION 02/25/2025 [facility] DATE CREATED AUTHOR AUTHOR'S ORGANIZ ATION 04/25/2025 [facility] DATE CREATED AUTHOR AUTHOR'S ORGANIZ ATION 04/25/2025 [facility] DATE CREATED AUTHOR AUTHOR'S ORGANIZ ATION 05/03/2025 [facility] Care Teams (unrecognized sec tion and [...] Luis M Romero ProviderActiveStart: April 23, 2025 Team Status: Inactive Member Role Status Dates Latrell Jack MD Primary Care Provider Active S tart: April 24, 2025 End: April 24, 2025Elmer Suh , DOAttending ProviderActiveStart: April 24, 2025 End: April 24, 2025 Team Status: Active Member Role Status Dates Latrell Jack MD Primary Care Provider Active S tart: January 21, 2025 Erik Kim MDAttending ProviderActiveStart: January 21, 2025 Team MemberRelationshipSpecialtyStart DateEnd Date Latrell Jack MD [address] [place] [address] PCP - GeneralFamily Medicine08/05/23Team MemberRelationshipSpecialtyStart DateEnd Date Latrell Jack MD [address] [place] [address] PCP - GeneralFamily Medicine08/05/23Team MemberRelationshipSpecialtyStart DateEnd Date Latrell Jack MD [address] [place] [address] PCP - GeneralFamily Medicine08/05/23Team MemberRelationshipSpecialtyStart DateEnd Date Dafne Spears MD [address] [address] Internal Medicine04/02/24Team MemberRelationshipSpecialtyStart DateEnd Date Dafne Spears MD [address] [facility] [address] [address] Internal Medicine04/02/24Team MemberRelationshipSpecialtyStart DateEnd Date Dafne Spears MD [address] [place] [address] Internal Medicine04/02/24Team MemberRelationshipSpecialtyStart DateEnd Date Latrell Jack MD [address] [place] [address] PCP - GeneralFamily Medicine08/05/23Team MemberRelationshipSpecialtyStart DateEnd Date Latrell Jack MD [address] [place] [address] PCP - GeneralFamily Medicine08/05/23Team MemberRelationshipSpecialtyStart DateEnd Date Latrell Jack MD [address] [place] [address] PCP - GeneralFamily Medicine08/05/23 Diomedes Fitzgerald DO [address] [place] [address] Referring XhqhfbvmkDfcyndlmd38/21/24Team MemberRelationshipSpecialtyStart Date End Date Latrell Jack MD [address] [place] [address] PCP - GeneralFamily Medicine08/05/23Team MemberRelationshipSpecialtyStart DateEnd Date Latrell Jack MD [address] [place] [address] PCP - GeneralFamily Medicine08/05/23Team MemberRelationshipSpecialtyStart DateEnd Date Latrell Jack MD [address] [place] [address] PCP - GeneralFamily Medicine08/05/23Team MemberRelationshipSpecialtyStart DateEnd Date Latrell Jack MD [address] [place] [address] PCP - Generalmily Medicine08/05/23Team MemberRelationshipSpecialtyStart DateEnd Date Latrell Jack MD [address] [place] [address] PCP - Generalmily Medicine08/05/23Team MemberRelationshipSpecialtyStart DateEnd Date Latrell Jack MD [address] [place] [address] PCP - Generalmily Medicine08/05/23 Diomedes Fitzgerald DO [address] [place] [address] Referring MuyslcrdvXmpxvhpgb20/21/24Team MemberRelationshipSpecialtyStart Date End Date Latrell Jack MD [address] [place] [address] PCP - GeneralFamily Medicine08/05/23 Diomedes Fitzgerald DO [address] [place] [address] Referring XlbeldebiGbinsabkm26/21/24Team MemberRelationshipSpecialtyStart Date End Date Latrell Jack MD [address] [place] [address] PCP - GeneralFamily Medicine08/05/23 Diomedes Fitzgerald DO [address] [place] [address] Referring GdgaqasxwWjlothcwg21/21/24Team MemberRelationshipSpecialtyStart Date End Date Latrell Jack MD [address] [place] [address] PCP - GeneralFamily Negfvgxf50/23/24 Dafne Spears MD [address] [address] Internal Medicine04/02/24Team MemberRelationshipSpecialtyStart DateEnd Date Latrell Jack MD [address] [place] [address] PCP - GeneralFamily Uwkfland05/23/24 Dafne Spears MD [address] [address] Internal Medicine04/02/24Team MemberRelationshipSpecialtyStart DateEnd Date Latrell Jack MD [address] [place] [address] PCP - GeneralFamily Medicine08/05/23 Diomedes Fitzgerald DO [address] [place] [address] Referring OrtkjuhafZoxuddbps89/21/24Team MemberRelationshipSpecialtyStart Date End Date Latrell Jack MD [address] [place] [address] PCP - GeneralFamily Medicine08/05/23 Diomedes Fitzgerald DO [address] [place] [address] Referring IhpqnqzpxEcbnodxqe61/21/24Team MemberRelationshipSpecialtyStart Date End Date Latrell Jack MD [address] [place] [address] [facility] - [facility] Irghemkr76/23/24 Dafne Spears MD [address] [place] [address] Internal Medicine04/02/24Team MemberRelationshipSpecialtyStart DateEnd Date Latrell Jack MD [address] [place] [address] PCP - Generalmily Medicine08/05/23 Latrell Jack MD [address] [place] [address] PCP - [facility]08/16/24 Diomedes Fitzgerald DO [address] [place] [address] Referring FtrysrqowRndnjmsiq93/21/24Team MemberRelationshipSpecialtyStart Date End Date Latrell Jack MD [address] [place] [address] PCP - [facility]08/05/23 Latrell Jack MD [address] [place] [address] PCP - [facility]08/16/24 Diomedes Fitzgerald DO [address] [place] [address] Referring JxujxiqimXiolvtbhi00/21/24Team MemberRelationshipSpecialtyStart Date End Date Latrell Jack MD [address] [place] [address] PCP - [facility] Medicine08/05/23 Latrell Jack MD [address] [place] [address] PCP - [facility]08/16/24 Diomedes Fitzgerald DO [address] [place] [address] Referring CtxapylhiPwxnerutj15/21/24Team MemberRelationshipSpecialtyStart Date End Date Latrell Jack MD [address] [place] [address] PCP - [facility] Medicine08/05/23 Latrell Jack MD [address] [place] [address] PCP - [facility]08/16/24 Diomedes Fitzgerald DO [address] [place] [address] Referring VgzughkdnOphayzxfz00/21/24Team MemberRelationshipSpecialtyStart Date End Date Latrell Jack MD [address] [place] [address] PCP - [facility] Medicine08/05/23 Latrell Jack MD [address] [place] [address] PCP - [facility]08/16/24 Diomedes Fitzgerald DO [address] [place] [address] Referring FnasownwzYjjspcsyj39/21/24Te MemberRelationshipSpecialtyStart Date End Date Latrell Jack MD [address] [place] [address] PCP - [facility] Medicine08/05/23 Latrell Jack MD [address] [place] [address] PCP - [facility]08/16/24 Diomedes Fitzgerald DO [address] [place] [address] Referring UsakytbgqKaowiscyt38/21/24Team MemberRelationshipSpecialtyStart Date End Date Latrell Jack MD [address] [place] [address] PCP - [facility]08/05/23 Latrell Jack MD [address] [place] [address] PCP - [facility]08/16/24 Diomedes Fitzgerald DO [address] [place] [address] Referring UtuczweumNprlsypvp92/21/24 Team Status: Inactive Member Role Status Dates Latrell Jack MD Primary Care Provider Active S tart: December 12, 2024 End: December 16Babs Sommers Provider, Attending Provider ActiveStart: December 12, 2024 End: December 16, 2024 Team Status: Active Member Role Status Dates Latrell Jack MD Primary Care Provider Active S tart: December 13, 2024 Babs Romero Provider, Attending Provider, Other Provider ActiveStart: December 13, 2024 Team Status: Inactive Member Role Status Dates Latrell Jack MD Primary Care Provider Active S tart: December 12, 2024 End: December 16Babs Sommers ProviderActiveStart: December 12, 2024 End: December 16deLuis M Dunne ProviderActiveStart: December 12, 2024 End: December 16, 2024 Team Status: Active Member Role Status Dates Latrell Jack MD Primary Care Provider Active S tart: December 13, 2024 Babs Romero ProviderActiveStart: December 13, 2024 Radha Rmoeroending ProviderActiveStart: December 13, 2024 Erik Kim MDOther ProviderActiveStart: December 13, 2024 Team MemberRelationshipSpecialtyStart DateEnd Date Latrell Jack MD [address] [place] [address] PCP - [facility] Medicine08/05/23 Latrell Jack MD [address] [place] [address] PCP - [facility]08/16/24 Diomedes Fitzgerald DO [address] [place] [address] Referring JvmvghzlcQalcahtwk49/21/24 Sugar Arenas, [employer] [address] [facility] [place] [address] [facility]er[facility]01/16/25Team MemberRelationshipSpecialtyStart DateEnd Date Latrell Jack MD [address] [place] [address] PCP - [facility]08/05/23 Latrell Jack MD [address] [place] [address] PCP - [facility]08/16/24 Diomedes Fitzgerald DO [address] [place] [address] Referring TawdqecrfSmdiqmcxt38/21/24 Sugar Arenas, [employer] [address] [facility] [place] [address] Social WorkerSouthern [facility] Medical Center01/16/25Team MemberRelationshipSpecialtyStart DateEnd Date Latrell Jack MD [address] [place] [address] PCP - [facility]08/05/23 Latrell Jack MD [address] [place] [address] PCP - [facility]08/16/24 Diomedes Fitzgerald DO [address] [place] [address] Referring EgevzoeeoMsnxiqixj08/21/24 Sugar Arenas, [facility] [address] [place] [address] Social WorkerSouthern Regional Medical Center01/16/25Team MemberRelationshipSpecialtyStart DateEnd Date Latrell Jack MD [address] [place] [address] PCP - [facility]08/05/23 Latrell Jack MD [address] [place] [address] PCP - [facility]08/16/24 Diomedes Fitzgerald DO [address] [place] [address] Referring KpnwugtjqKctgtdics05/21/24 Sugar Arenas, [facility] [address] [place] [address] Social WorkerSouthern [facility] Medical Center Team Status: Active Member Role/Relationship Status Dates Latrell Jack MD Primary Care Provider Active Team Status: Inactive Member Role/Relationship Status Dates Latrell Jack MD Primary Care Provider Active S tart: February 03, 2025 End: February 03, 2025Fara Torrez ProviderActiveStart: February 03, 2025 End: February 03, 2025 Team Status: Inactive Member Role/Relationship Status Dates Latrell Jack MD Primary Care Provider Active S tart: April 10, 2025 End: April 10, 2025Luis M Cavanaugh ProviderActiveStart: April 10, 2025 End: April 10, 2025 Team Status: Active Member Role/Relationship Status Dates Latrell Jack MD Primary Care Provider Active S tart: April 23, 2025 Luis M Romero ProviderActiveStart: April 23, 2025 Team Status: Inactive Member Role/Relationship Status Dates Latrell Jack MD Primary Care Provider Active S tart: April 24, 2025 End: April 24, 2025Fara Coats ProviderActiveStart: April 24, 2025 End: April 24, 2025 Team Status: Inactive Member Role/Relationship Status Dates Latrell Jack MD Primary Care Provider Active S tart: April 29, 2025 End: April 29, 2025Luis M Cavanaugh ProviderActiveStart: April 29, 2025 End: April 29, 2025Team MemberRelationshipSpecialtyStart DateEnd Date Latrell Jack MD PCP - GeneralFamily Medicine08/05/23 Latrell Jack MD [address] [place] [address] PCP - [facility]08/16/24 Diomedes Fitzgerald DO [address] [place] [address] Referring HandhbbjyCrkbfcjhc14/21/24 Sugar Arenas, [employer] [address] [place] [address] Social [facility]erW[facility] MedicineTeam MemberRelationshipSpecialtyStart DateEnd Date Latrell Jack MD PCP - [facility] Medicine08/05/23 Latrell Jack MD [address] [place] [address] PCP - [facility]08/16/24 Diomedes Fitzgerald DO [address] [place] [address] Referring OpfiowxtmQwfzzltor64/21/24 Sugar Arenas, [employer] [address] [place] [address] [facility] HospitalTeam MemberRelationshipSpecialtyStart DateEnd Date Latrell Jack MD PCP - [facility]08/05/23 Latrell Jack MD [address] [place] [address] PCP - [facility]08/16/24 Diomedes Fitzgerald DO [address] [place] [address] Referring LlvwuemurGytbglcbr75/21/24 Sugar Arenas, [employer] [address] [place] [address] Social WorkerFamiWellstar Douglas HospitalTeam MemberRelationshipSpecialtyStart DateEnd Date Latrell Jack MD PCP - [facility]08/05/23 Latrell Jack MD [address] [place] [address] PCP - [facility]08/16/24 Diomedes Fitzgerald DO [address] [place] [address] Referring LdivgymmsIfqtbhpbt66/21/24 Sugar Arenas, [employer] [address] [facility] [place] [address] Social WorkerSouthern Regional Medical CenterTeam MemberRelationshipSpecialtyStart DateEnd Date Latrell Jack MD PCP - [facility]08/05/23 Latrell Jack MD [address] [place] [address] [facility] - [facility]08/16/24 Diomedes Fitzgerald DO [address] [place] [address] Referring AhvrjshvnFscpcocdf84/21/24 Sugar Arenas, [employer] [address] [place] [address] Social WorkerSouthern [facility] Medical Center Team Status: Inactive Member Role/Relationship Status Dates Latrell Jack MD Primary Care Provider Active S tart: April 10, 2025 End: April 10, 2025[facility] Radha Jackending ProviderActiveStart: April 10, 2025 End: April 10, 2025 Team Status: Active Member Role/Relationship Status Dates Latrell Jack MD Primary Care Provider Active S tart: April 23, 2025 Erikchristine Kim MDAttending ProviderActiveStart: April 23, 2025 Team Status: Inactive Member Role/Relationship Status Dates Latrell Jack MD Primary Care Provider Active S tart: April 24, 2025 End: April 24, 2025Elmer Suh DOAttending ProviderActiveStart: April 24, 2025 End: April 24, 2025 Team Status: Inactive Member Role/Relationship Status Dates Latrell Jack MD Primary Care Provider Active S tart: April 29, 2025 End: April 29, 2025[facility] Luis M Jack ProviderActiveStart: April 29, 2025 End: April 29, 2025 Team Status: Inactive Member Role/Relationship Status Dates Latrell Jack MD Primary Care Provider Active S tart: May 08, 2025 End: May 08tim Arcos APRNAttending ProviderActiveStart: May 08, 2025 End: May 08, 2025 Reason for Visit (unrecogniz ed section and content) ReasonCommentsFollow-up6 mReasonCommentsNew Patient EvaluationHiatal Hernia [id number] CureLap Paraesophageal Hernia Repair/EGD 4 hours los 1 ReasonCommentsFollow-up3 mReasonOnset DateCommentsMedication Sqvgunlh55/05/2024 ReasonCommentsMemory LossDysphagiaSpecialtyDiagnoses / ProceduresReferred By ContactReferred To ContactNeurology Diagnoses 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CMS/HCC) Other dysphagia Procedures [place] OFFICE/OUTPATIENT [facility] 60 MINUTES Latrell Jack MD [address] [place] [address] Diomedes Fitzgerald DO [address] [place] [address] Referral IDStatusReasonStart DateExpiration DateVisits RequestedVisits [id number] Specialty Services Required /[id number] LossSpecialtyDiagnoses / Procedures Referred By ContactReferred To Contact Diagnoses Preoperative examination Paraesophageal hernia Procedures REFER TO [facility] - PREOPERATIVE OPTIMIZATION OFFICE/OUTPATIENT [facility] 60 MINUTES Katarzyna SnyderLISSETTE.[facility] [address] [place] [address] Referral IDStatusReasonStart DateExpiration DateVisits RequestedVisits [id number] PCP Requested Referral 1ReasonOnset DateCommentsMed Esabka7407/30/2024ReasonComments Post OpReasonCommentsMedicare Annual Wellness Visit SubsequentwellnessReason CommentsMed RefillReasonOnset DateCommentsMed Wcmunc4010/30/2024ReasonComments Follow-upER F/UReasonCommentsFollow-up6m Source Comments (unrecognize d section and content) In the event this informatio n is protected by the Federal Confidentiality of Alcohol and Drug Abuse Patient Records regulations: The Federal rules restrict any use of the information to criminally investigate or prosecute any alcohol or drug abuse patient.[facility] CampusIn the event this information is protected by the Federal Confidentiality of Alcohol and Drug Abuse Patient Records regulations: The Federal rules restrict any use of the information to criminally investigate or prosecute any alcohol or drug abuse patient.[facility] CampusIn the event this information is protected by the Federal Confidentiality of Alcohol and Drug Abuse Patient Records regulations: The Federal rules restrict any use of the information to criminally investigate or prosecute any alcohol or drug abuse patient.[facility] CampusIn the event this information is protected by the Federal Confidentiality of Alcohol and Drug Abuse Patient Records regulations: The Federal rules restrict any use of the information to criminally investigate or prosecute any alcohol or drug abuse patient.[facility] CampusIn the event this information is protected by the Federal Confidentiality of Alcohol and Drug Abuse Patient Records regulations: The Federal rules restrict any use of the information to criminally investigate or prosecute any alcohol or drug abuse patient.[facility] CampusIn the event this information is protected by the Federal Confidentiality of Alcohol and Drug Abuse Patient Records regulations: The Federal rules restrict any use of the information to criminally investigate or prosecute any alcohol or drug abuse patient.[facility] Goals (unrecognized section and content) Goals may [...] CLINICAL RECORDS. [facility] [employer] provides no warranty or guarantee of the accuracy or completeness of information in this document.
== END 2025-05-19 09:47 | disposition home or self-care (01) ==
LOC: MRI 09:46
PROVIDERS: PCP Family Medicine; Visit Provider Nurse Practitioner
DX: M48.062 Spinal stenosis, lumbar region with neurogenic claudication (principal); M51.369 Other intervertebral disc degeneration, lumbar region without mention of lumbar back pain or lower extremity pain
CPT/HCPCS: 72148

== ENCOUNTER 2025-06-20 15:27 | Emergency (ER) | payer MEDICARE, OTHER, SELFPAY ==
--- OUTSIDE RECORDS SUMMARY | 2025-06-19 09:54 | XMS_ITS | Continuity of Care Document ---
Author Organization [facility] Address [address] [place] [address] Phone Care Team Providers Care Training Specialist Name Role Phone Latrell Jack MD Primary Care Provider Latrell Jack MD Attending Provider Elmer Suh DO Attending Provider [phone] Sandra Arcos APRN Attending Provider [phone] Erik Kim MD Attending Provider Dallin Morillo MD Attending Provider Care Teams Patient Care Team Team Status: Active Member Role/Relationship Status Dates Latrell Jack MD Primary Care Provider Active Visit Care Team Team Status: Inactive Member Role/Relationship Status Dates Latrell Jack MD Primary Care Provider Active S tart: April 10, 2025 End: April 10, 2025Luis M Cavanaugh ProviderActiveStart: April 10, 2025 End: April 10, 2025 Visit Care Team Team Status: Inactive Member Role/Relationship Status Dates Latrell Jack MD Primary Care Provider Active S tart: April 24, 2025 End: April 24, 2025Elmer Suh DOAttniraj ProviderActiveStart: April 24, 2025 End: April 24, 2025 Visit Care Team Team Status: Inactive Member Role/Relationship Status Dates Latrell Jack MD Primary Care Provider Active S tart: April 29, 2025 End: April 29, 2025Luis M Cavanaugh ProviderActiveStart: April 29, 2025 End: April 29, 2025 Visit Care Team Team Status: Inactive Member Role/Relationship Status Dates Latrell Jack MD Primary Care Provider Active S tart: May 08, 2025 End: May 08Claire Tay ProviderActiveStart: May 08, 2025 End: May 08, 2025 Visit Care Team Team Status: Active Member Role/Relationship Status Dates Latrell Jack MD Primary Care Provider Active S tart: May 27, 2025 Radha Romeroending ProviderActiveStart: May 27, 2025 Visit Care Team Team Status: Inactive Member Role/Relationship Status Dates Latrell Jack MD Primary Care Provider Active S tart: June 19, 2025 End: June 19, 2025Fara Coats ProviderActiveStart: June 19, 2025 End: June 19, 2025 Patient Care Team Team Status: Inactive Member Role/Relationship Status Dates Latrell Jack MD Primary Care Provider Active S tart: June 19, 2025 End: June 19, 2025Radha Allenending ProviderActiveStart: June 19, 2025 End: June 19, 2025 Chief Complaint and Reason for Visit Chief Complaint Admit Date Hospital FollowUp [place] April 10, 2025 11:27am [facility] CONSULT DR JACK LT SHOULDER PAIN WX [facility] April 24, 2025 10:39am Established Patient April 29, 2025 1 :07pm Follow up 3 month May 08, 2025 1 2:27pm BH May 27, 2025 2:30pm TB 8 WEEKS June 19, 2025 11:06am Spinal stenosis, lumbar region with neur ogenic cla June 19, 2025 2:12pm Reason for Visit Admit Date Dysfunction of [...] 102024 1:07pm GERD without esophagitis April 29, 2 025 1:07pm EDWIN (obstructive sleep apnea) April 292024 1:07pm Primary insomnia April 29, 2025 1 :07pm Primary osteoarthritis of both knees Apr eleni2024 1:07pm Memory loss May 08, 2025 1 2:27pm Primary insomnia May 08, 2025 1 2:27pm 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, 2025 1 2:27pm Obstructive sleep apnea syndrome May 08, 2025 12:27pm Impingement of left shoulder June 192024 11:06am Lumbar stenosis June 19, 2025 2:12pm Reason for Referral Type Reason(s) Provider Provider Contact Information P rovider Address Start Date Primary osteoarthritis of left shoulder M19.012 - Primary osteoarthritis, left poahrpehK87.012 - Primary osteoarthritis, left shoulderDetermined by PatientOctober 2024 Allergies, Adverse Reactions, Alerts Allergen Type Severity Reaction Last Updated Verified Status No Known Allergies Allergy Unknown June 19, 2025 2:31pmYesActive Social History Smoking Status Status Start Date End Date Date of Observa tion Ex-smoker (finding) April 10, 2025 11:50am Observation Status Observation Response Date of Response Legal Sex [facility] (finding) [facility] Problems Active Problems Problem Diagnosis/Recorded Date Onset Date Stat us Class 2 severe obesity due t o excess calories with serious comorbidity in adult April 29, 2025 12:45pm Unknown Active Medicare annual wellness vis it, subsequent April 29, 2025 12:29pm Unknown Active Impingement of left shoulder April 24, 2025 10:35a m Unknown Active Lower extremity edema April 09, 2025 12:18pm Unknow n Active Primary insomnia February 03, 2025 3:30pm Unknown A ctive EDWIN (obstructive sleep apnea) April 09, 2025 12:19p m Unknown Active Dysfunction of left eustachian tube April 10, 2025 11:19am Unknown Active Primary osteoarthritis, left shoulder April 10 11:11am Unknown Active Lumbar stenosis June 19, 2025 2:45pm Unknown Active Primary osteoarthritis of both knees April 09, 2025 12:20pm Unknown Active Essential hypertension, benign April 09, 2025 12:18 pm Unknown Active Dyslipidemia April 09, 2025 12:18pm Unknown Ac tive Memory loss February 03, 2025 3:47pm Unknown Activ e Anxiety February 03, 2025 3:47pm Unknown Activ e Senile dementia April 09, 2025 12:20pm Unknown Active TIA (transient ischemic attack) April 09, 2025 12:2 0pm Unknown Active 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, 2025 3:47pm Unknown Act woen Former smoker December 12, 2024 6:07pm Unknown Activ e Major depressive disorder, r ecurrent, moderate December 13, 2024 9:06am Unknown Active Seasonal allergic rhinitis due to pollen April 09, 2025 12:20pm Unknown Active GERD without esophagitis April 10, 2025 11:05am Unk nown Active Prediabetes April 09, 2025 12:19pm Unknown Ac tive Degenerative lumbar spinal stenosis April 09, 2025 12:18pm Unknown Active COPD (chronic obstructive pu lmonary disease) December 12, 2024 6:06pm Unknown Active Tinnitus April 10, 2025 11:18am Unknown Ac tive Stroke April 09, 2025 12:20pm Unknown Ac tive Osteopenia of lumbar spine April 09, 2025 12:19pm U nknown Active Inactive/Resolved Problems Problem Diagnosis/Recorded Date Onset Date Stat us Class 2 severe obesity due t o excess calories with serious comorbidity and body mass index (BMI) of 36.0 to 36.9 in adult April 09, 2025 12:17pm Unknown Resolved Sleep apnea December 12, 2024 6:05pm Unknown Resolv ed Dysphagia April 09, 2025 12:18pm Unknown Re solved Medications Medication Status Dose Units Route Directions Qty Days Refills S tart Date Stop Date End Date Reason(s) Instructions Adherence Donepezil 10 mg tablet Active 10 MG PO Bedtime 30 30 2 April 23, 2025 8:36am Complies with drug therapyFluticasone Propionate 50 mcg/actuation spray,amufgrfkruOizydcpsncnj7RGXIGIEAAXXTTNHFceok425Ccdfoyve 2024 12:55pm June 19, 2025 2:32pmLosartan 100 mg djstczAlmovl912NENGUbdyc254Mnxegptq 2024 10:09amComplies with drug therapyAtorvastatin 40 mg cqegmjQhlnol98VG PODailyJune 2024 11:00pmComplies with drug therapyDonepezil 10 mg tablet Wfmuwlgfqaht42GVSBLyseanhSiby 4th, 2025 11:00pmOctober 2024 8:36amLosartan 50 mg uiafenLidudwqxywpm72QKNNNydct dailyJune 2024 11:00pmJuly 2024 2:55pmZolpidem 10 mg lmyanhMrviulcwrorg99JJBJTyjnsbl as needed for sleepJun2024 11:00pmOctober 2024 10:48amZonisamide 50 mg zongcrgZznimfbevmoz04 MGPOTwice dailyJun2024 11:00pmOctober 2024 12:42pmFluticasone Propionate 50 mcg/actuation spray,tdzxfszvdvPacwuvkoocdg0ZSNZDPICKHRDJDVGouhn December 11, 2024 11:00pmDecember 2024 12:55pmMethocarbamol 750 mg tablet Etqpzfxejzpw024EORIUevc times daily as needed for painJun2024 11:00pmJuly 2024 2:55pmTiotropium [place] (Spiriva With Handihaler) 18 mcg capsule, w/inhalation tngxgjOlljex5NPHOWNXNKLXJRAxkaeUkze 4th, 2025 11:00pmComplies with drug therapyMirtazapine 7.5 mg TabletDiscontinued7.5MGPODaily at nvykzoi41170 December 15, 2024 11:00pmJuly 2024 2:55pmZonisamide 50 mg gzmhsccObxxub956UM PODailyOctober 2024 12:36pmComplies with drug therapyLosartan 50 mg tablet Bejthqydxszq06LIXNBrcqu dailyJuly 2024 11:00pmOctober 2024 12:27pm Methocarbamol 500 mg rbsoozYgomecgvkwpt884GKMIcr neededJuly 2024 11:00pm April 09, 2025 12:31pmFamotidine 40 mg bfbtujMwdtjqlzlcwh35QQAYGaampYgmk 2024 11:00pmOctober 2024 12:42pmPantoprazole 40 mg tablet,delayed release (DR/EC)Mukkfcbavlkq61UJQXOujtkKvzk 2024 11:00pmOctober 2024 12:22pmAspirin 81 mg vrquxnKhniiw10KCIZYrnyhNymr 2024 11:00pmComplies with drug therapyMirtazapine 15 mg plzvvmCjoyrb04GRNVOjfsc at bedtimeJuly 2024 11:00pmComplies with drug therapyEszopiclone (Lunesta) 2 mg wuypxvDqskzg5WPUJ Daily at qsuibfb03578Emjt 2024 11:00pmPrimary insomnia Primary insomniaComplies with drug therapyFamotidine 40 mg tegydfSxfpmz22MKYU Twice dailyOct2024 12:27pmComplies with drug therapyLosartan 100 mg byowscAatgeqlpxkif162AWIXJefeqJijvsimws 2024 11:00pmDecember 2024 10:09amMethocarbamol 750 mg twtrhgHliagx992BSXQOzxo times daily as needed for muscle spasmsSeptember 2024 11:00pmComplies with drug therapyAlbuterol Sulfate 2.5 mg /3 mL (0.083 %) solution for nebulizationActive2.5MGINHALATION Every 4 hours as neededSeptember 2024 11:00pmComplies with drug therapy Calcium Carbonate (Calcium 600) 600 mg calcium (1,500 mg) nmkywdOoarua889GZDB Twice dailySeptember 2024 11:00pmComplies with drug therapyDocusate Sodium 100 mg xoaiolhFdnyeonayyml449THEHVhlsz daily as neededSeptember 2024 11:00pmOctober 2024 10:47amMultivitamin,Tx-Minerals (Multi-Vitamin Hp/Minerals) izugyluKulrtb2MBRXPGeoaxCbibuxrsp 2024 11:00pmComplies with drug therapyCholecalciferol (Vitamin D3) 25 mcg (1,000 unit) wbmzaaVwngwl00QIINA DailySeptember 2024 11:00pmComplies with drug therapyVitamin E Mixed 400 unit vxucqiEefoom896YRSEJJBarlqTmruuaclm 2024 11:00pmComplies with drug therapyEszopiclone (Lunesta) 3 mg cuqhgaTpugxo8RWTANhpjy at htuyyyp08198Ugwphmn 2024 11:00pmPrimary insomnia Primary insomniaTake immediately before bed Due 11/5/2025Complies with drug therapyAmlodipine (Norvasc) 5 mg ljlimgFsmsfy0LE VSNuwuu502KrytgvoApril 28, 2025 11:00pmComplies with drug therapyTirzepatide (Weight Loss) (Zepbound) 2.5 mg/0.5 mL pen injectorActive2.5MGSUBCUTevery weekApril 28, 2025 11:00pmfor 4 weeksComplies with drug therapy Vital Signs Vital Reading Result Reference Range Collection Date/Time Height 64 [in_i] April 10, 2025 10:93btUehpmp499.32 kgOctober 2024 10:46amBody Cozkwjvocny80.1 [degF]97.6-99.0Oct2024 10:46amHeart Tsfw474 /ngn48-433 April 10, 2025 10:46amRespiratory rate24 /bks40-32Rhzlmat2024 10:46am Oxygen saturation by Pulse myssplzp10 %95-100Oct2024 10:46amBP Lmpzxtyg599 mm[Hg]100-140April 10, 2025 10:46amBP Aggblyfqb95 mm[Hg]60-100 April 10, 2025 10:46amBMI (Body Mass Index)39.4 kg/x3SrnyizmApril 10, 2025 10:47uyKfrbrf99 [in_i]April 24, 2025 10:62siHxdnwa899.00 kgOctober 2024 10:06amBMI (Body Mass Index)39.3 kg/y5Silfmdi 2024 10:48ixFwibsz40 [in_i]April 29, 2025 12:21ghNgetly396.96 kgOctober 2024 12:20pmBody Hsjhbyqvexw85.1 [degF]97.6-99.0Oct2024 12:20pmHeart Rate96 /kqo61-472 April 29, 2025 12:20pmRespiratory rate20 /xxi17-57IijmrgqApril 29, 2025 12:20pm Oxygen saturation by Pulse aajueevw76 %95-100Oct2024 12:20pmBP Vyhbilpu767 mm[Hg]100-140April 29, 2025 12:20pmBP Xnfzyylcq25 mm[Hg]60-100 April 29, 2025 12:20pmBMI (Body Mass Index)38.9 kg/s1Mpsweiv 2024 12:35ukLohbrh08 [in_i]May 08, 2025 11:44ruIfjoni040.96 kgOctober 2024 11:46amHeart Rate65 /wcc00-975Xiaqmul 2024 11:46amBP Thscigvc333 mm[Hg]100-140October 2024 11:46amBP Zvbtsrovs73 mm[Hg]60-100October 2024 11:46amBMI (Body Mass Index)38.9 kg/w8Tqpgdqf 2024 11:31vbCyijzq23 [in_i]June 19, 2025 2:06mkCbeyqb868.00 kgDecember 2024 2:30pmBMI (Body Mass Index)38.9 kg/f4Yddoxxoi 2024 2:30pm Advance Directives Advance Directive Response Recorded Date/ Time Advance Directives No December 17 1:30pm Insurance Providers Guarantor Shey Obrien Address [address] [address]Contact Info.Home Phone: Coverage Status Update:2025 Payer Group Member ID Coverage Type Subscriber Relationship to Subscriber Effective Date Expiration Date Medicare [id number] Lee Mchenry Id: [id number] [address] [id number] Home Phone: SelfMedicare [employer] [id number] Lee Mchenry Id: [id number] [address] [id number] Home Phone: [employer] [facility] [employer] Id: [id number] Lee Mchenry Id: [id number] [address] [facility] [address] Home Phone: SelfRegular Lee Mchenry Id: [id number] [address] [facility] [address] Home Phone: Self Encounters Encounter Location(s) Arrival/Admit Date Discharge/Departure Date Discharge/Departure Disposition Provider(s) Departed Physician/ Provider Office Visit -[facility] Family Medicine [place] April 10, 2025 11:27am April 10, 2025 12:14pm Discharged to home care or self care (routine discharge) Latrell Jack MD Departed Physician/ Provider Office Visit -[facility] Orthopedics [place] April 24, 2025 10:39am April 24, 2025 11:35am Discharged to home care or self care (routine discharge) Elmer Suh DO Departed Physician/ Provider Office Visit -[facility] Family Medicine [place] April 29, 2025 1:07pm April 29, 2025 1:42pm Discharged to home care or self care (routine discharge) Latrell Jack MD Departed Physician/ Provider Office Visit -[facility] Neurology [place] May 08, 2025 12:27pm May 08, 2025 1:11pm Discharged to home care or self care (routine discharge) Hakeem Srinivasan APRN Registered [facility] May 27, 2025 2:30pm [facility] Orthopedics [facility] 2024 11:06amDe2024 11:18am Discharged to home care or self care (routine discharge)Elmer Suh DO Departed Physician/Provider [facility] 2024 2:12pmDece2024 2:53pmDischarged to home care or self care (routine discharge)Dallin Morillo MD Recent Diagnosis Onset Date Admit Date Dysfunction [...] 1:07pm EDWIN (obstructive sleep apnea) Unknown Oc tob2024 1:07pm Primary insomnia Unknown April 29, 025 1:07pm Primary osteoarthritis of both knees Unknown April 29, 2025 1:07pm Memory loss Unknown May 08 12:27pm Primary insomnia Unknown May 08, 025 12:27pm Pseudodementia Unknown May 08 12:27pm Obstructive sleep apnea syndrome Unknown May 08, 2025 12:27pm Impingement of left shoulder Unknown Jun 11:06am Lumbar stenosis Unknown June 19 025 2:12pm Assessments Diagnosis Onset Date Resolution Status Admit [...] osteoarthritis of both kneesacute April 29, 2025 1:07pmMemory lossacuteOctober 2024 12:27pmPrimary insomniaacuteOctober 2024 12:27pmPseudodementiaacuteOctober 2024 12:27pmObstructive sleep apnea syndromenoneactiveOctober 2024 12:27pm Impingement of left shoulderacuteDecember 2024 11:06amLumbar stenosisacute June 19, 2025 2:12pm Plan of Treatment Author [facility] 20[facility] 11:20amContinued pain and degenerative changes on x-ray. Refer to ortho for possible injection. Continued symptoms and no improvement with treatment. Continue flonase and refer to ENT. Continued symptoms and no improvement with treatment. Continue flonase and refer to ENT. BP controlled and monitor PRN. Author Lizzie Little [facility] 2024 10:37amDiscussed with patient and company on the patient's [...] follow-up in 8 weeks for reevaluation. Author Shae Rendon [facility] 2024 11:17amShe is slowly progressing. We will continue to treat this conservatively. We discussed continuing to do therapy exercises on her own at home. We discussed a repeat injection, at the appropriate time, if her symptoms worsen. She can continue to progress activity as tolerated. At this time, she can follow up as needed. Author Sandra Arcos [facility] 20[facility] 12:59kj76-node-vai female with a long history of obstructive sleep apnea. She believes severe. She is compliant with her CPAP machine. [...] is not working well for her. We did switch her over to Lunesta as is a longer acting medicine for her sleep onset and sleep maintenance insomnia. She did try 2 mg and it is working better than the Ambien. We will go up to 3 mg for further benefit. We may not be able to greatly improve her sleep until her shoulder and back pain is controlled. This continues to wake her. She was having some issues with memory loss. This has been stable. She had a neuropsych test that did not show any neurodegenerative process. 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 She believes the Aricept has helped therefore we will keep her on it. I offered to dc therefore she would have on less med to take, it and she declines. She recently had a psychiatric admit due to depression and anxiety and some psychosocial issues. She had some transient suicidal ideation. She is somewhat better now. Patient has some mild shakiness and tremulousness. She has a little bit in her jawline. It is no worse and we will monitor this over time. Her BP is high today. She recently had amlodipine added. Previous old records Last MMSE 28/30 EEG normal TSH B12 folic acid normal MRI of the brain was nonacute with microvascular ischemic changes and some atrophy Since neuropsych 04/11/2024 showed no evidence of a neurodegenerative condition but memory worsened because of depression anxiety sleep quality and poor daytime energy. She is very distractible. . . . Plan Increase Lunesta to 3 mg at bedtime Continue to monitor BP with PCP Compliance download reviewed and she is compliant as above Continue with psychiatric treatment Continue the Aricept 10 mg daily for now not clear that she actually needs this although she believes it is helping She did see pain management for back pain and lumbar injections and now needs to see neurosurgeon Continue with ortho for left shoulder and PT Continue with ENT for tinnitus Brain exercises Cardiovascular exercise Mediterranean diet 8 hours of sleep 12 hours of fasting The patient was counseled on proper sleep hygiene and adequate hours of sleep. The patient was counseled on the risks of stroke, CO, and sudden with EDWIN, along with the need for compliance with the CPAP/BiPAP treatment. The diagnosis was all discussed with the patient.?? All questions were answered and they agreed with the treatment plan.?? Patient will call if there are any new issues or questions. Author Latrell Jack [facility]Authored[facility] 20[facility] 12:48pmBP remains elevated and add norvasc. Continue to monitor PRN. Discussed DASH diet. Breathing stable and continue inhalers. Use albuterol PRN. Sleeping well with lunesta and continue. Pain stable and use OTC PRN. Symptoms controlled with pepcid and continue. Sleeping well with CPAP and continue. Problems losing weight and try zepbound. Future Tests Future scheduled test information is unavailable Pending Tests Test Name Ordered Date Scheduled Date XR dexa axial skeleton June 19, 2025 2:52p m XR lumbar spine 6V w bendingDecember 2024 2:52pm Future Visits Future appointment information is unavailable Future Procedures Future procedure information is unavailable Future Medications Future medication information is unavailable Patient Instructions Patient instructions are unavailable
[2025-06-20] VITALS (57 sets, daily range): BP systolic 165–213; BP diastolic 78–111; PULSE 77–101; O2SAT 92–100; BMI 39.0
--- NOTE | 2025-06-20 16:26 | ECG_ITS ---
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 Measurements Intervals Fence Rate: 80 P: 30 FL: 160 QRS: -4 QRSD: 84 T: 37 QT: 372 QTc: 408 Interpretive Statements 1100 Sinus rhythm Poor R wave progression 5233 Voltage criteria for LVH 9150 abnormal ECG Compared to ECG 03/28/2025 17:41:10 No significant changes Electronically Signed On 06-20-2025 17:27:09 EST by DARRICK WELCH M.D.
--- NOTE | 2025-06-20 16:27 | ED.GENADUL1 ---
HPI HPI - General Adult General Chief complaint: Abdominal Pain Stated complaint: SOB, abdominal pain Time Seen by Provider: 06/20/25 16:20 Source: patient Mode of arrival: Wheelchair Limitations: no limitations History of Present Illness HPI narrative: 74-year-old female presents for abdominal pain and vomiting. It has been intermittent over the last week and it got worse today. She has not had a bowel movement in 2 days but she has been eating or drinking much. No fever or hematemesis. About a month ago she had hiatal hernia surgery at the [facility]. She has never had a bowel obstruction. The pain is moderate and waxes and wanes. Related Data Home Medications ?Medication ?Instructions ?Recorded ?Confirmed aspirin 81 mg tablet,delayed 81 mg PO DAILY 04/16/24 06/20/25 release (Adult Aspirin Regimen) atorvastatin 40 mg tablet 40 mg PO DAILY 04/16/24 06/20/25 calcium carbonate (Calcium 500) 500 mg PO BID 04/16/24 06/20/25 fluticasone propionate 50 2 spray intranasal DAILY PRN 04/16/24 06/20/25 mcg/actuation nasal allergy symptoms spray,suspension (24 Hour Allergy Relief) tiotropium bromide 18 mcg capsule 1 cap inhalation DAILY 04/16/24 06/20/25 with inhalation device (Spiriva with HandiHaler) amlodipine 5 mg tablet 5 mg PO DAILY 06/20/25 06/20/25 donepezil 10 mg tablet 10 mg PO BEDTIME 06/20/25 06/20/25 eszopiclone 3 mg tablet 3 mg PO BEDTIME 06/20/25 06/20/25 losartan 100 mg tablet 100 mg PO DAILY 06/20/25 06/20/25 mirtazapine 15 mg tablet 15 mg PO DAILY 06/20/25 06/20/25 Previous Rx's ?Medication ?Instructions ?Recorded zonisamide 50 mg capsule 100 mg (2 x 50 mg) PO DAILY #60 12/12/24 caps methocarbamol 750 mg tablet 750 mg PO TID PRN spasms #90 tabs 05/07/25 Allergies Allergy/AdvReac Type Severity Reaction Status Date / Time No Known Drug Allergies Allergy Verified 04/28/25 08:33 Opioid HPI Opioid Management Most Recent Opioid Data: Last Pain Scale 3 04/28/25, 08:30 Review of Systems ROS Narrative A ten point review of systems is negative except as noted above. PFSH PFSH Medical History Osteoarthritis ?M19.90 - Unspecified osteoarthritis, unspecified site (ICD-10) Anxiety ?F41.9 - Anxiety disorder, unspecified (ICD-10) Hiatal hernia ?K44.9 - Diaphragmatic hernia without obstruction or gangrene (ICD-10) Sleep apnea ?G47.30 - Sleep apnea, unspecified (ICD-10) COPD (chronic obstructive pulmonary disease) ?J44.9 - Chronic obstructive pulmonary disease, unspecified (ICD-10) High cholesterol ?E78.00 - Pure hypercholesterolemia, unspecified (ICD-10) HTN (hypertension) ?I10 - Essential (primary) hypertension (ICD-10) Surgical History History of ankle surgery ?Z98.890 - Other specified postprocedural states (ICD-10) History of hand surgery ?Z98.890 - Other specified postprocedural states (ICD-10) History of knee replacement ?Z96.659 - Presence of unspecified artificial knee joint (ICD-10) Social History Little interest or pleasure in doing things: not at all Feeling down, depressed, or hopeless: not at all Exam Narrative Exam Narrative: Nurses note and vital signs reviewed General:The patient appears mildly uncomfortable and in no acute distress Skin:Warm, dry, no pallor noted.There is no rash noted. Head:Normocephalic, atraumatic Eye: Normal conjunctiva, no drainage Ears, Nose, Mouth, and Throat: oral mucosa is moist. Nares patent. Cardiovascular:Regular Rate and Rhythm Respiratory:Patient is in no distress, no accessory muscle use, lungs are clear to auscultation, no wheezing, rales or rhonchi Back:non-tender GI: Soft, mildly tender. Bowel sounds are hyperactive Musculoskeletal: The patient has no evidence of calf tenderness, no pitting edema, symmetrical pulses noted bilaterally Neurological:A&O, normal speech Psychiatric:Cooperative Constitutional Vital Signs, click to edit/add: Last Vital Signs Pulse 81 06/20/25 17:41 Resp 20 06/20/25 17:41 BP 211/92 H 06/20/25 17:41 Pulse Ox 97 06/20/25 17:41 O2 Del Method Room Air 06/20/25 15:55 Course Vital Signs Vital signs: Vital Signs Pulse Rate 89 06/20/25 15:55 Respiratory Rate 20 06/20/25 15:55 Blood Pressure 180/90 H 06/20/25 15:55 Pulse Oximetry 100 06/20/25 15:55 Oxygen Delivery Method Room Air 06/20/25 15:55 Pulse Rate 81 06/20/25 17:41 Respiratory Rate 20 06/20/25 17:41 Blood Pressure 211/92 H 06/20/25 17:41 Pulse Oximetry 97 06/20/25 17:41 Oxygen Delivery Method Room Air 06/20/25 15:55 Medical Decision Making MDM Narrative Medical decision making narrative: Blood work is nonspecific. CT scan is pending and the patient is signed out to Dr. Herr at change of shift. Differential Diagnosis Differential Diagnosis: Bowel obstruction, constipation, abdominal pain Lab Data Lab results reviewed: Yes I reviewed the patient's lab results Labs: Lab Results 06/20/25 06/20/25 Range/Units 16:30 17:23 WBC 7.3 (4.0-11.0) 10^3/uL RBC 4.26 (4.20-5.40) 10^6/uL Hgb 13.8 (12.0-16.0) g/dL Hct 38.8 (36.0-48.0) % MCV 91.1 (81.0-99.0) fL MCH 32.4 (26.7-34.0) pg MCHC 35.6 H (29.9-35.2) g/dL RDW 13.4 (11.0-15.0) % Plt Count 169 (150-450) 10^3/uL MPV 9.9 (9.5-13.5) fL Seg Neuts % (Manual) 90.0 H (43.0-75.0) Lymphocytes % (Manual) 6.0 L (20.5-60.0) % Monocytes % (Manual) 4.0 (1.7-12.0) % Eosinophils % (Manual) 0.0 L (0.9-7.0) % Basophils % (Manual) 0.0 L (0.2-2.0) % Neutrophils # (Manual) 6.57 H (1.4-6.5) 10^3/uL Lymphocytes # (Manual) 0.43 L (1.20-3.80) 10^3/uL Monocytes # (Manual) 0.29 L (0.30-0.80) 10^3/uL Eosinophils # (Manual) 0.00 (0.00-0.70) 10^3/uL Basophils # (Manual) 0.00 (0.00-0.10) 10^3/uL Sodium 136 (136-145) mmol/L Potassium 3.7 (3.5-5.1) mmol/L Chloride 104 (98-107) mmol/L Carbon Dioxide 21.5 (21.0-32.0) mmol/L Anion Gap 14.2 BUN 16.0 (7.0-18.0) mg/dL Creatinine 0.99 (0.55-1.02) mg/dL Est GFR ( Amer) >60 (>=60 mL/min/1.73m^2) Est GFR (Non-Af Amer) 55 L (>=60 mL/min/1.73m^2) BUN/Creatinine Ratio 16.2 Glucose 202 H (74-106) mg/dL Calcium 9.5 (8.5-10.1) mg/dL Urine Color Yellow (YELLOW) Urine Clarity Clear (CLEAR) Urine pH 7.0 (5.0-9.0) Ur Specific Gatzke 1.010 (1.005-1.025) Urine Protein Trace (NEG/TRACE) mg/dL Urine Glucose (UA) Negative (NEGATIVE) mg/dL Urine Ketones Negative (NEGATIVE) mg/dL Urine Occult Blood Negative (NEGATIVE) Urine Nitrite Negative (NEGATIVE) Urine Bilirubin Negative (NEGATIVE) Urine Urobilinogen 0.2 (0.2-1.0) EU/dL Ur Leukocyte Esterase Trace A (NEGATIVE) Urine RBC 0-2 (0-2) #/HPF Urine WBC 5-10 A (NONE SEEN) #/HPF Ur Squamous Epith Cells Few A (NONE/RARE) #/LPF Urine Crystals None seen (None Seen) #/HPF Urine Bacteria Trace A (NONE SEEN) #/HPF Urine Casts None seen (NONE SEEN) #/LPF Urine Mucus Small A (NONE SEEN) Ur [place] Indicated[place] [place] Data Attestation: I personally reviewed and interpreted this ECG as follows: (EKG my interpretation shows sinus rhythm with a rate of 80 and no acute change) Discharge Plan Discharge Patient Disposition: Still a Patient
[2025-06-20] MEDS: 0.9 % SODIUM CHLORIDE 1,000 ML 125 ML IV ×2 (16:36→21:36)
[2025-06-20 16:48] LABS: Hematocrit 38.8 % (36.0-48.0); Hemoglobin 13.8 g/dL (12.0-16.0); Mean Corpuscular HGB Conc 35.6 g/dL (29.9-35.2); Mean Corpuscular Hemoglobin 32.4 pg (26.7-34.0); Mean Corpuscular Volume 91.1 fL (81.0-99.0); Platelet Count 169 10^3/uL (150-450); Red Blood Count 4.26 10^6/uL (4.20-5.40); White Blood Count 7.3 10^3/uL (4.0-11.0)
[2025-06-20 16:57] LABS: Anion Gap 14.2; Blood Urea Nitrogen 16.0 mg/dL (7.0-18.0); Calcium 9.5 mg/dL (8.5-10.1); Carbon Dioxide 21.5 mmol/L (21.0-32.0); Chloride 104 mmol/L (98-107); Estimated GFR (African America >60 (>=60 mL/min/1.73m^2); Estimated GFR (Non-African Ame 55 (>=60 mL/min/1.73m^2); Glucose 202 mg/dL (74-106); Potassium 3.7 mmol/L (3.5-5.1); Sodium 136 mmol/L (136-145)
--- OUTSIDE RECORDS SUMMARY | 2025-06-20 16:59 | XMS_ITS | CCD ---
Author Organization [facility] CliniSynm Care Team Providers Care Bindery Worker Name Role Phone FREDY, DR CHAPARRO [...] Care Provider GUERO, LATRELL Primary Care Physician [phone] Pa WEBB Referring Unavailable NILL, Pa Vivas [...] Unavailable Yovanny OLIVO, Dafne Talal Unavailable [phone] Amilcar JOVEL Diomedes Unavailable Latrell Jack MD Primary Care Provider Yovanny OLIVO, Dafne T Unavailable Latrell Jack MD Unavailable Elmer Kohli Attending Unavailable Elmer Kohli Attending Unavailable Latrell Jack MD Primary Care Provider Julio OLIVO, Erik Admit Provider Julio OLIVO, Erik Attending Provider Tra Hobson MD Attending Provider Julio OLIVO, Erik Attending Provider Julio OLIVO, Erik Other Provider Diomedes Fitzgerald DO Attending Provider Dagoberto RPG PROGRAMMER, Sugar Unavailable LATRELL JACK Attending Unavailable SANDRA ARCOS Attending Unavailable LATRELL JACK Attending Unavailable LATRELL JACK Attending Unavailable DIOMEDES FITZGERALD Attending Unavailable LATRELL JACK Referring Unavailable DIOMEDES FITZGERALD Referring Unavailable MAO MORROW Attending Unavailable LATRELL JACK Attending Unavailable SANDRA ARCOS Attending Unavailable Dagoberto RPG PROGRAMMER, Sugar Unavailable Latrell Jack MD Primary Care Provider Julio OLIVO, Erik Attending Provider Latrell Jack MD Attending Provider Latrell Jack MD Primary Care Provider Erik Kim MD Attending Provider [phone] Elmer Suh DO Attending Provider [phone] XAVIER BOYD Referring Unava ilable NADERER, LATRELL [...] of OnsetReaction(s) Facility (1 source)[facility] AcidsDrug AllergyThe [facility] Medications Current Medications MedicationDrug Class(es)DatesSig (Normalized)Sig (Original)acetaminophen 500 mg oral tablet (16 sources)Start: 95-43-0573ikna 1 tablet by mouth every six hours as needed for pain and painacetaminophen (Tylenol) 500 MG tablet Take 500 mg by mouth every 6 (six) hours if needed for mild pain or moderate pain Take 2 tabs every 6 hours as needed for pain. 07/26/2024 Activeacetaminophen 325 mg / HYDROcodone bitartrate 5 mg oral tablet (2 sources)Opioid AgonistStart: 12-04-2024 End: 60-63-5876iypm 1 tablet by mouth four times daily as needed for pain HYDROcodone-acetaminophen (Innis) 5-325 MG tablet Indications: Degenerative lumbar spinal stenosis Take 1 tablet by mouth 4 (four) times a day as needed for severe pain for up to 5 days 20 tablet 12/04/2024 12/09/2024 Activealbuterol 0.83 mg/ml inhalation solution (20 sources)beta2-Adrenergic AgonistStart: 57-61-6942ytbgdnjjz 0.083% Inh Marlin 3 mL Refill(s) 0, 150 mL, 0 Refill(s), INHALE 3 ML(2.5 MG) BY NEBULIZER EVERY 4 HOURS NEEDED FOR SHORTNESS OF BREATH OR WHEEZING Start Date: 02/23/24 Status: Ordered Repeatnumber: 1Start: 10-64-8659cejw 2.5 mg by inhalation every four hours as neededAlbuterol Sulfate 2.5 mg /3 mL (0.083 %) solution for nebulization Active 2.5 MG INHALATION Every 4hours as needed April 09, 2025 12:00am Complies with drug therapyALBUTEROL INHALATION Inhale as instructed. ActiveamLODIPine 5 mg oral tablet (2 sources)Dihydropyridine Calcium Channel BlockerStart: 80-94-3326yylp 1 tablet by mouth once dailyAmlodipine (Norvasc) 5 mg tablet Active 5 MG PO Daily 30 5 April 29, 2025 12:00am Complies withdrug therapyaspirin 81 mg oral tablet (20 sources)Platelet Aggregation Inhibitor, Nonsteroidal Anti-inflammatory Drug Start: 33-90-6932elzd 1 tablet by mouth once dailyAspirin 81 mg tablet Active 81 MG PO Daily February 03, 2025 12:00am Complies with drug therapyStart: 03-05-2021 aspirin 81 mg cap Take 81 mg by mouth. 03/05/2021 ActiveStart: 29-42-8030vgom 1 tablet by mouth once dailyaspirin 81 mg Oral EC Tab 81 mg = 1 tab(s), Oral, Daily, Refills(s) 0, Prophylaxis Start Date: 03/05/21 Status: Ordered Repeat number: 1atorvastatin 40 mg oral tablet (20 sources)HMG-CoA Reductase InhibitorStart: 02-72-3979pham 1 tablet by mouth once dailyAtorvastatin 40 mg tablet Active 40 MG PO Daily December 12, 2024 12:00am Complies with drug therapyCalcium (4 sources)Phosphate Binder, CalciumStart: 71-17-8337wsen 1 tablet by mouth once dailyCalcium Calcium, 1 tab, Oral, Daily Start Date: 02/26/24 Status: Ordered Repeat number: 1Start: 52-37-8435xyct 1 tablet by mouth once dailyCalcium Calcium, 1 tab, Oral, Daily Start Date: 02/26/24 Status: OrderedStart: 02-26-2024 Calcium Calcium Start Date: 02/26/24 Status: Orderedcalcium carbonate 1500 mg oral tablet (20 sources)Start: 55-11-7581flbw 1 tablet by mouth twice dailyCalcium Carbonate (Calcium 600) 600 mg calcium (1,500 mg) tablet Active 600 MG PO Twice daily April 09, 2025 12:00am Complies with drug therapycholecalciferol 0.025 mg oral tablet (20 sources)Vitamin DStart: 68-69-2198osks 1 tablet by mouth once daily Cholecalciferol [...] Activeeszopiclone 2 mg oral tablet (9 sources)Start: 89-82-2017dssg 1 tablet by mouth once daily at bedtime Eszopiclone (Lunesta) 2 mg tablet Active 2 MG PO Daily at bedtime 30 30 2 February 03, 2025 12:00am Primary insomnia Primary insomnia Complies with drug therapy fluticasone propionate 0.05 mg/actuat metered dose nasal spray (20 sources)CorticosteroidStart: 69-89-6022Kdpwpntnzng Propionate 50 mcg/actuation spray,suspension Active 2 SPRAY INTRANASAL Daily December 12, 2024 12:00am Complies with drug therapyStart: 71-90-2952bmof 2 spray(s) nasal route once dailyfluticasone (Flonase) 50 MCG/ACT nasal spray Indications: Seasonal allergic rhinitis due to pollen USE 2 SPRAYS IN EACH NOSTRIL DAILY 48 mL 5 03/26/2024 ActiveStart: 85-27-4171fyzgeftrpbu (FLONASE) 50 mcg/actuation nasal spray 2 Sprays once daily. 09/06/2023 ActiveStart: 59-78-6524Rrqtxbc 0.05 mg/inh [place] 2 spray(s), Nasal, Daily, Refill(s) 0, Dry nasal passages Start Date: 09/06 Status: Ordered Repeat number: 1Start: 06-21-2023 End: 54-12-6899xcow 2 spray(s) nasal route in the morningfluticasone (Flonase) 50 MCG/ACT nasal spray Administer 2 sprays into each nostril in the morning. 1 08/22/2022 03/26/2024 Discontinuedlosartan potassium 100 mg oral tablet (20 sources)Angiotensin 2 Receptor BlockerStart: 70-28-3289uhlx 1 tablet by mouth once dailyLosartan 100 mg tablet Active 100 MG PO Daily April 09, 2025 12:00am Complies with drug therapyStart: 72-64-6375fnry 1 tablet by mouth once dailylosartan (Cozaar) 100 MG tablet Indications: Essential hypertension, benign Take 1 tablet (100 mg) by mouth Daily 30 tablet 5 02/24/2025 ActiveStart: 06-13-2024 End: 12-27-4411smps 1 tablet by mouth twice dailyLosartan 50 mg tablet Discontinued 50 MG PO Twice daily February 03, 2025 12:00am April 09, 2025 1: 27pmStart: 02-09-2024 End: 55-10-9865aphm 1 tablet by mouth in the morninglosartan (Cozaar) 50 MG tablet Indications: Essential hypertension, benign (CMS/HCC) Take 1 tablet (50 mg) by mouth in the morning and 1 tablet (50 mg) before bedtime. 180 tablet 3 06/13/2024 ActiveStart: 33-31-0684jqgs 1 tablet by mouth once dailylosartan 25 mg Tab 25 mg = 1 tab(s), Oral, Daily, Refills(s) 0, High blood pressure Start Date: 09/06/23 Status: Ordered Repeat number: 1take 1 tablet by mouth once daily losartan (Cozaar) 25 MG tablet Take 1 tablet by mouth 1 (one) time each day at the same time 0 Activemethocarbamol 750 mg oral tablet (20 sources)Muscle RelaxantStart: 37-72-9516ccqo 1 tablet by mouth four times daily as needed for muscle spasmsMethocarbamol 750 mg tablet Active 750 MG PO Four times daily as needed for muscle spasms April 09, 2025 12:00am Complies with drug therapyStart: 43-84-4212lhdj 1 tablet by mouth four times daily as needed for muscle spasmsmethocarbamol (Robaxin) 750 MG tablet Indications: Degenerative lumbar spinal stenosis TAKE 1 TABLET BY MOUTH 4 TIMES A DAY NEEDED FOR MUSCLE SPASMS 60 tablet 2 03/03/2025 ActiveStart: 02-03-2025 End: 74-55-8426Muamyisoskmlo 500 mg tablet Discontinued 500 MG PO as needed February 03, 2025 12:00am April 09, 2025 1:31pmStart: 12-04-2024 End: 42-04-3719tlem 1 tablet by mouth four times daily as needed for pain Methocarbamol 750 mg tablet Discontinued 750 MG PO Four times daily as needed for pain December 12, 2024 12:00am February 03, 2025 3:55pmStart: 12-01-2024 End: 96-18-0558mkgckmroacuyp (Robaxin) 500 MG tablet 12/01/2024 12/04/2024 Discontinued (Reorder)mirtazapine 15 mg oral tablet (16 sources)Start: 60-96-6930rlqu 1 tablet by mouth once daily at bedtime Mirtazapine 15 mg tablet Active 15 MG PO Daily at bedtime February 03, 2025 12:00am Complies with drug therapyStart: 12-16-2024 End: 10-90-5407ewck 1 tablet by mouth once daily at bedtimeMirtazapine 7.5 mg Tablet Discontinued 7.5 MG PO Daily at bedtime 30 30 0 December 16, 2024 12:00am February 03, 2025 3:55pmMultiple Vitamin (multivitamin) capsule (20 sources)take 1 capsule by mouth once dailyMultiple Vitamin (multivitamin) capsule Take 1 capsule by mouth Daily ActiveMultivitamin,Tx-Minerals (Multi- Vitamin Hp/Minerals) capsule (5 sources)Start: 46-03-7700ddwg 1 capsule by mouth once dailyMultivitamin,Tx- Minerals (Multi-Vitamin Hp/Minerals) capsule Active 1 CAP PO Daily April 09, 2025 12:00am Complies with drug therapyondansetron 4 mg oral tablet (1 source)Serotonin-3 Receptor AntagonistStart: 07-26-2024 End: 94-46-2101gbjy 1 tablet by mouth every eight hours as neededondansetron (Zofran) 4 MG tablet Take 4 mg by mouth every 8 (eight) hours if needed 07/26/2024 08/02/2024 ActiveoxyCODONE hydrochloride 5 mg oral tablet (4 sources)Opioid AgonistStart: 07-26-2024 End: 51-51-9858qugt 1 tablet by mouth every six hours as needed for pain and painoxyCODONE (Roxicodone) 5 MG immediate release tablet Take 5 mg by mouth every 6 (six) hours if needed for moderate pain or severe pain 07/26/2024 08/27/2024 DiscontinuedpredniSONE 50 mg oral tablet (4 sources)Start: 12-04-2024 End: 99-90-1428mccs 1 tablet by mouth once dailypredniSONE (Deltasone) 50 MG tablet Indications: Degenerative lumbar spinal stenosis Take 1 tablet (50 mg) by mouth Daily for 6 days 6 tablet 12/04/2024 12/10/2024 ActiveStart: 05-15-2024 End: 51-67-8714vybm 1 tablet by mouth once dailypredniSONE (Deltasone) 50 MG tablet Indications: Chronic obstructive pulmonary disease, unspecifiedCOPD type (CMS/HCC) Take 1 tablet (50 mg) by mouth Daily for 6 days 6 tablet 05/15/2024 05/21/2024 Activetiotropium 0.018 mg inhalation powder (20 sources)AnticholinergicStart: 77-82-3863bpfa 1 capsule by inhalation once dailyTiotropium Grayson (Spiriva With Handihaler) 18 mcg capsule, w/inhalation device Active 1 CAP INHALATION Daily December 12, 2024 12:00am Complies with drug therapyStart: 17-15-7334kijm 1 capsule by inhalation in the morningSpiriva HandiHaler 18 MCG inhalation capsule Indications: Chronic obstructive pulmonary disease, unspecified COPD type (HCC) PLACE 1 CAPSULE (18 MCG) INTO INHALER AND INHALE IN THE MORNING 30 10/29/2024 ActiveStart: 10-09-2023 End: 75-62-2674nonp 1 capsule by inhalation in the morningtiotropium (Spiriva HandiHaler) 18 MCG inhalation capsule Indications: Chronic obstructive pulmonary disease, unspecified COPD type (CMS/HCC) Place 1 capsule (18 mcg) into inhaler and inhale in the morning. 30 capsule 11 10/09/2023 10/29/2024 Discontinued Start: 53-61-4564lgya 1 capsule by inhalation once dailySpiriva HandiHaler 18 mcg inhalation capsule 18 mcg = 1 cap(s), Inhalation, Daily, Refills(s) 0, Miguelina rtness of breath or wheezing Start Date: 09/06/23 Status: OrderedStart: 76-97-7661lepm 1 capsule by inhalation in the morningSpiriva HandiHaler [address] 1 capsule into inhaler and inhale in the morning. 0 05/23/2023 Activetiotropium bromide (SPIRIVA RESPIMAT INHALATION) Inhale as instructed. ActiveTiotropium Grayson (Spiriva With Handihaler) 18 mcg capsule, w/inhalation device (1 source)Start: 82-50-3707dwkx 1 capsule by inhalation once dailyTiotropium Grayson (Spiriva With Handihaler) 18 mcg capsule, w/inhalation device Active 1 CAP INHALATION Daily December 12, 2024 12:00amTirzepatide (Weight Loss) (2 sources)Start: 91-74-1227Aarobhbohqn (Weight Loss) (Zepbound) 2.5 mg/0.5 mL pen injector Active 2.5 MG SUBCUT every week 2 1Oct2024 12:00am for 4 weeks Complies with drug therapyVitamin D3 1000 intl units (25 mcg) Tab (5 sources)Start: 66-30-5012zowc 1 tablet by mouth once dailyVitamin D3 1000 intl units (25 mcg) Tab 25 mcg = 1 tab(s), Oral, Daily, Refills(s) 0, Prophylaxis Start Date: 09/06/23 Status: Ordered Repeat number: 1Start: 77-14-5423qpsa 1 tablet by mouth once dailyVitamin D3 1000 intl units (25 mcg) Tab 25 mcg = 1 tab(s), Oral, Daily, Refills(s) 0, Prophylaxis Start Date: 09/06/23 Status: OrderedVitamin E (20 sources)Start: 77-39-8392vgtmdnm E Oral, Daily, Refills(s) 0, Prophylaxis Start Date: 02/26/24 Status: Ordered Repeat number:1Start: 99-17-7049jmuphmn E Oral, Daily, Refills(s) 0, Prophylaxis Start Date: 02/26/24 Status: OrderedStart: 85-01-7212peevqpi E Oral, Refills(s) 0 Start Date: 02/26/24 Status: Orderedtake 1 capsule by mouth once dailyalpha tocopherol (Vitamin E) 400 units capsule Take 1 capsule by mouth 1 (one) time each day at thesaut time ActiveVitamin E, dl, acetate, (VITAMIN E) 400 unit capsule Take 1 capsule by mouth. ActiveVitamin E Mixed 400 unit tablet (5 sources)Start: 24-02-8918nvxm 1 tablet by mouth once dailyStart: 04-09-2025 take 1 tablet by mouth once dailyVitamin E Mixed 400 unit tablet Active 400 UNIT PO Daily April 09, 2025 12:00am Complies with drug therapyzonisamide 50 mg oral capsule (20 sources)Anti-epileptic AgentStart: 71-23-7202opxb 1 capsule by mouth once dailyZonisamide 50 mg capsule Active 100 MG PO Daily April 09, 2025 1:36pm Complies with drug therapyStart: 12-12-2024 End: 85-00-3688wkyb 1 capsule by mouth twice dailyZonisamide 50 mg capsule Discontinued 50 MG PO Twice daily December 12, 2024 12:00am April 0951:42pm Start: 07-69-8891xymk 2 capsules by mouth once dailyzonisamide (Zonegran) 50 MG capsule Take 100 mg by mouth Daily 08/07/2024 Active Completed/Discontinued Medications MedicationDrug Class(es)DatesSig (Normalized)Sig (Original)baclofen 10 mg oral tablet (19 sources)gamma-Aminobutyric Acid-ergic Agonist End: 48-12-9977yytd 5 mg by mouth in the morningbaclofen (Lioresal) 10 MG tablet Take 5 mg by mouth in the morning and 5 mg before bedtime. 02/24/2025 Discontinueddocusate sodium 100 mg oral capsule (20 sources)Start: 04-09-2025 End: 41-69-3066grhv 1 capsule by mouth twice daily as neededDocusate Sodium 100 mg capsule Discontinued 100 MG PO Twice daily as needed April 09, 2025 12:00a m April 10, 2025 11:47amStart: 72-37-8104Rmiiqpmw Sodium (DSS) 100 MG capsule Take 100 mg by mouth every 12 (twelve) hours if needed 07/26/2024 ActiveStart: 97-32-2092sduh 1 capsule by mouth every twelve hours as neededdocusate sodium (COLACE) 100 mg capsule Take 1 capsule by mouth two times a day as needed for constipation. 07/26/2024 Activedonepezil hydrochloride 10 mg oral tablet (20 sources)Start: 05-30-2024 End: 63-90-2100hxfx 1 tablet by mouth at bedtimeDonepezil 10 mg tablet Discontinued 10 MG PO Bedtime December 12, 2024 12:00am April 23, 2025 9:36am Start: 02-23-2024 End: 29-43-8946lmdrhgeep 5 mg Tab 30 EA, 0 Refill(s), TAKE 1 TABLET BY MOUTH AT BEDTIME, Refills(s) 0 Start Date: 02/23/24 Status: Ordered Repeat number: 1 famotidine 40 mg oral tablet (20 sources)Histamine-2 Receptor AntagonistStart: 02-03-2025 End: 15-47-8995epdn 1 tablet by mouth once dailyFamotidine 40 mg tablet Discontinued 40 MG PO Daily February 03, 2025 12:00am April 09, 2025 1:42pm Start: 23-81-1267pidq 1 tablet by mouth twice dailyFamotidine 40 mg tablet Active 40 MG PO Twice daily April 09, 2025 1:27pm Complies with drug therapy Start: 18-28-8115mpis 1 tablet by mouth once daily at bedtimefamotidine 40 mg Tab 40 mg = 1 tab(s), Oral, Once a day (at bedtime), Refills(s) 0, Control of stomach acid Start Date: 03/03/21 Status: Ordered Repeat number: 1One A Day Women's Complete (5 sources)Start: 79-39-8306Crw A Day Women's Complete Oral, Daily, Refill(s) 0, Prophylaxis Start Date: 03/03/21 Status: Ordered Repeat number: 1Start: 14-74-5594Dae A Day Women's Complete Oral, Daily, Refill(s) 0, Prophylaxis Start Date: 03/03/21 Status: Orderedpantoprazole 40 mg delayed release oral tablet (20 sources)Proton Pump InhibitorStart: 03-03-2021 End: 34-39-3211xocb 1 tablet by mouth once dailyPantoprazole 40 mg tablet,delayed release (DR/EC) Discontinued 40 MG PO Daily February 03, 2025 12:00am April 29, 2025 1:22pmzolpidem tartrate 10 mg oral tablet (20 sources)gamma-Aminobutyric Acid-ergic AgonistStart: 07-31-2024 End: 57-63-9785jyde 1 tablet by mouth at bedtime as needed for sleepZolpidem 10 mg tablet Discontinued 10 MG PO Bedtime as needed for sleep December 12, 2024 12:00am April 10, 2025 11:48amStart: 03-03-2021 End: 97-93-2399ejnd 1 tablet by mouth once daily at bedtime as needed for sleep zolpidem 12.5 mg oral ER Tab 12.5 mg = 1 tab(s), Oral, Once a day (at bedtime), PRN for sleep, Refills(s) 0 Start Date: 03/03/21 Status: Ordered Repeat number: 1 Problems Active Problems Problem ClassificationProblemDateDocumented DateEpisodic/ChronicAcute cerebrovascular disease (20 sources)Cerebrovascular accident; Translations: [Cerebral infarction, unspecified]Onset: 846412-01-3043VvrdrgvDbzqvhc disorders (16 sources)Generalized anxiety disorder; Translations: [Generalized anxiety disorder]39-84-9533ZoyncbgKsykpgu obstructive pulmonary disease and bronchiectasis (20 sources)Chronic obstructive pulmonary disease, unspecified; Translations: [Chronic obstructive pulmonary disease with (acute) exacerbation]Onset: 617334-86-9740RuxvkmwUebxhyql, dementia, and amnestic and other cognitive disorders (20 sources)Senile dementia; Translations: [Unspecified dementia without behavioral disturbance]Onset: 292190-58-1374YsjfnbqItpizuij mellitus without complication (20 sources)Prediabetes; Translations: [Prediabetes]Onset: EpisodicDisorders of lipid metabolism (20 sources)Hyperlipidemia, unspecified; Translations: [Dyslipidemia]Onset: 203333-20-3047YdawudyXrcipylbbb disorders (18 sources)Gastroesophageal reflux disease; Translations: [Gastroesophageal reflux disease without esophagitis]Onset: 156141-61-0757SuqrmkoDveongiif hypertension (20 sources)Essential (primary) hypertension; Translations: [Benign essential hypertension]Onset: 09-16-2021 Resolved: 923625-12-2860AcsxgnaYdapq and electrolyte disorders (1 source)Disorder of electrolytes; Translations: [Other disorders of electrolyte and fluid balance, not elsewhere classified]Onset: 07-26-2024 51-46-2012BfodmzmrTlueszoqqtvyi mental health disorders (20 sources)Psychophysiologic insomnia; Translations: [Primary insomnia]Onset: 938193-97-6412LfmzczxZbig disorders (19 sources)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 features; Translations: [Major depressive disorder, recurrent severe without psychotic features]Onset: 121960-45-1704ZdduspwNzwxuhyzprovbc (20 sources)Primary gonarthrosis, bilateral; Translations: [Bilateral primary osteoarthritis of knee]Onset: 109294-83-9561XzgobbzWoehy aftercare (1 source)Postoperative visit; Translations: [Encounter for other specified surgical aftercare]42-51-7882IzmyraqmNdxgs bone disease and musculoskeletal deformities (20 sources)Osteopenia; Translations: [Other specified disorders of bone density and structure, other site]Onset: 797698-68-3692VnzxsbxeIljhk ear and sense organ disorders (10 sources)Tinnitus; Translations: [Tinnitus, unspecified ear]04-10-2025 EpisodicOther gastrointestinal disorders (20 sources)Dysphagia; Translations: [Dysphagia, unspecified]Onset: 02-09-2024 EpisodicOther hereditary and degenerative nervous system conditions (2 sources)Impaired cognition; Translations: [Mild cognitive impairment, so stated]09-83-1427MljzslhKdyqw lower respiratory disease (2 sources)Dyspnea on exertion; Translations: [Other forms of dyspnea]07-23-2024 EpisodicOther nervous system disorders (6 sources)Chronic pain; Translations: [Other chronic pain]41-49-2101Aoewvkk Other nervous system disorders (1 source)Other chronic pain; Translations: [Chronic back pain, unspecified back location, unspecified back pain laterality]Onset: 69-80-1467ZonieyrMuhvc nervous system disorders (4 sources)Word finding difficulty ; Translations: [Other speech disturbances] 10-55-7389EyfffnsmUcfec nervous system disorders (1 source)Acute postoperative pain; Translations: [Other acute postprocedural pain]Onset: 545165-70-4939BaqzfqmpWoshx nervous system disorders (10 sources)Pseudodementia; Translations: [Other symptoms and signs involving cognitive functions and awareness]34-20-8120IdkrthdsMytns non-traumatic joint disorders (5 sources)Disorder of shoulder; Translations: [Other specified joint disorders, left shoulder]25-82-1374BhmjmzynZunkk nutritional; endocrine; and metabolic disorders (1 source)Obesity, unspecified; Translations: [OBESITY UNSPECIFIED]Onset: 71-79-7675QodqajgUmioz nutritional; endocrine; and metabolic disorders (1 source)Morbid (severe) obesity due to excess calories; Translations: [MORBID SEVERE OBES D/T EXCESS JULIO C]Onset: 15-18-0048HykxguwNwlqj nutritional; endocrine; and metabolic disorders (1 source)Body mass index (BMI) 38.0-38.9, adult; Translations: [BODY MASS INDEX BMI 38.0-38.9 ADULT]Onset: 19-81-5944JxjqbpzRglpo nutritional; endocrine; and metabolic disorders (2 sources)Body mass index 40+ - severely obese; Translations: [Body mass index (BMI) 40.0-44.9, adult]81-26-1711OwbfrvzFgppa nutritional; endocrine; and metabolic disorders (8 sources)Body mass index 30+ - obesity; Translations: [Body mass index (BMI) 39.0-39.9, adult]Onset: 07-23-2024 Resolved: 107090-61-2713DhgysdtUkpyt nutritional; endocrine; and metabolic disorders (20 sources)Severe obesity; Translations: [Class 2 severe obesity due to excess calories with serious comorbidity and body mass index (BMI) of 38.0 to 38.9 in adult ([facility])]Onset: 03-03-2024 Resolved: 568882-59-9568XirgrxwBxemi nutritional; endocrine; and metabolic disorders (3 sources)Obesity; Translations: [Obesity, unspecified]Onset: 07-23-2024 49-43-3583KjriyqqSaykk nutritional; endocrine; and metabolic disorders (1 source)Obese class II; Translations: [Obesity, Class II, BMI 35-39.9]Onset: 578004-09-5156EogbynuJvapz upper respiratory disease (20 sources)Allergic rhinitis due to pollen; Translations: [Allergic rhinitis due to pollen]Onset: 937698-43-6846TshckyjBiold upper respiratory disease (5 sources)Seasonal allergic wiqxsxoy81-74-9120JeuqxepBmfwzr media and related conditions (10 sources)Dysfunction of left eustachian tube; Translations: [Unspecified Eustachian tube disorder, left ear]03-30-4862YhofbzaaDggbqwkf codes; unclassified (2 sources)Obstructive sleep apnea (adult) (pediatric); Translations: [OBSTRUCTIVE SLEEP APNEA]Onset: 15-02-9503DjmqwuaKentfeap codes; unclassified (20 sources)Obstructive sleep apnea syndrome; Translations: [Obstructive sleep apnea (adult) (pediatric)]Onset: 407874-93-0934VnbxwnyZjkgrlpq codes; unclassified (10 sources)Sleep apnea; Translations: [Sleep apnea, unspecified]03-03-2021 ChronicResidual codes; unclassified (6 sources)Insomnia; Translations: [Other insomnia]65-05-7184HzkyleqXqfkeike codes; unclassified (20 sources)Edema of lower extremity; Translations: [Localized edema]Onset: 110881-32-8485GztdokssUuyrrlnk codes; unclassified (5 sources)Izdlchql34-49-2400RpwpftyoOjunkure codes; unclassified (20 sources)Amnesia; Translations: [Other amnesia]Onset: EpisodicResidual codes; unclassified (1 source)History of hernia repair; Translations: [Other specified postprocedural states]Onset: 779051-14-4246DuhxijoeKfzvormem and history of mental health and substance abuse codes (20 sources)Personal history of nicotine dependence; Translations: [Ex-smoker] Onset: 22-77-2677JwjoffuuMebufzrwgnz; intervertebral disc disorders; other back problems (20 sources)Lumbago with sciatica, left side; Translations: [Chronic back pain ] Onset: 462530-68-2135JxyddozeCppyaia and intentional self-inflicted injury (1 source)Suicidal thoughts; Translations: [Suicidal ideations]Onset: 12-12-2024 EpisodicTransient cerebral ischemia (20 sources)Transient cerebral ischemia; Translations: [Transient cerebral ischemic attack, unspecified]Onset: 745429-48-5447SlwzwhpXqbatomrdboz (2 sources)COUGH, UNSPECIFIED; Translations: [COUGH, UNSPECIFIED]Onset: 62-39-0634Nxavxbdqlepw (1 source)CONTACT W/AND (SUSP) EXPOS COVID-19; Translations: [CONTACT W/AND (SUSP) EXPOS COVID-19]Onset: 73-77-4948Uvtknargzwuk (5 sources)Patient encounter dfydex44-57-0544Grqxzbojlmre (2 sources)Call if you have any medical concerns.Unclassified (1 source)client operations manager will call you tomorrow, if you [...] reflux disease with hiatal hernia]Onset: 09-16-2021 Resolved: 282332-65-9858MvfzyzamDjiwutpneppq of device; implant or graft (2 sources)Pain due to internal orthopedic prosthetic devices, implants and grafts, initial encounter; Translations: [Other specified complication of internal orthopedic prosthetic devices, implants and grafts,initial encounter] Onset: 53-55-1889BayydbxoXhtwoout of lower limb (5 sources)Other fracture of upper and lower end of right fibula, subsequent encounter for closed fracture with routine healing; Translations: [Torus fracture of lower end of right fibula, subsequent encounter for fracture with routine healing]Onset: 05-39-1641ScovwrlhPtdwpvdurwmmc symptoms and ill-defined conditions (4 sources)Personal history of urinary (tract) infections; Translations: [History of urinary tract infection]Onset: 877422-92-5731Hdpfmfqm Immunizations and screening for infectious disease (3 sources)Contact with or exposure to other viral diseases; Translations: [Contact with and (suspected) exposure to covid-19]Onset: 022811-87-8639 EpisodicMood disorders (13 sources)Mood disordersOnset: Other aftercare (1 source)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; Translations: [OTH HALFWAY CURRENT DRUG THERAPY]Onset: 67-14-2589ShzltejkZaqmt aftercare (1 source)senior living (current) use of aspirin; Translations: [MORTGAGE ORIGINATOR CURRENT USE OF ASPIRIN]Onset: 77-54-0916DhyfvccyIvxxb aftercare (8 sources)Patient encounter status; Translations: [Other residential (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 therapy]Onset: 429665-39-2262UlfyngdzUowhc aftercare (20 sources)Long-term current use of drug therapy; Translations: [Other residential (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 therapy]Onset: 616397-97-0498IxeldusnAuyah aftercare (1 source)Encounter for other specified surgical aftercare; Translations: [Postoperative visit]Onset: 84-79-0510NecrkjzbFvnnr bone disease and musculoskeletal deformities (1 source)Other specified disorders of bone density and structure, other site; Translations: [OTH D/O BONE DEN STRUCT OTH SITE]Onset: 10-91-5550WssrttepJlnlc bone disease and musculoskeletal deformities (3 sources)Disorder of bone; Translations: [Other specified disorders of bone density and structure, other site]Onset: 401711-75-3015MqtgccqfSscsz circulatory disease (1 source)Personal history of transient ischemic attack (TIA), and cerebral infarction without residual deficits; Translations: [PERS HX TIA AND CI NO RESID DEFICIT]Onset: 14-78-2094AogkkdaiOazjd lower respiratory disease (3 sources)Dyspnea, unspecified; Translations: [DYSPNEA UNSPECIFIED]Onset: 50-96-3637DadcqpesClwqk lower respiratory disease (1 source)Shortness of breath; Translations: [SHORTNESS OF BREATH]Onset: 86-36-8675LafedefhStyit lower respiratory disease (3 sources)Cough; Translations: [Cough, unspecified]Onset: EpisodicOther lower respiratory disease (6 sources)Dyspnea; Translations: [Dyspnea, unspecified]Onset: 11-02-2021 57-22-9046ZolbnprdVpupi lower respiratory disease (1 source)Other forms of dyspnea; Translations: [CHENEY (dyspnea on exertion)] Onset: 35-31-5289NbpvvyepHlexu nervous system disorders (1 source)Other acute postprocedural pain; Translations: [Acute postoperative pain]Onset: 28-66-9897BhgmcfbhAxbwx non-traumatic joint disorders (1 source)Pain in right ankle and joints of right foot; Translations: [PAIN IN RIGHT ANKLE]Onset: 81-33-4131DgatsgvcOqjoo non-traumatic joint disorders (3 sources)Arthralgia of the ankle and/or foot; Translations: [Pain in right ankle and joints of right foot]Onset: 756742-39-4963MlejqpxaKjqjw nutritional; endocrine; and metabolic disorders (20 sources)Morbid obesity; Translations: [Morbid (severe) obesity due to excess calories]Onset: 08-11-2023 Resolved: 870865-11-6252LzpgxblDiezo nutritional; endocrine; and metabolic disorders (12 sources)Obesity caused by energy imbalance; Translations: [Other obesity due to excess calories]Onset: 09-16-2021 Resolved: 100182-09-5702GqcgtfvNuvzb screening for suspected conditions (not mental disorders or infectious disease) (20 sources)Encounter for screening mammogram for malignant neoplasm of breast; Translations: [Patient encounter status]Onset: 57-46-3648ViavbiybVyksdghx codes; unclassified (20 sources)Hypersomnia; Translations: [Hypersomnia, unspecified]Onset: 03-03-2024 Resolved: 760745-68-0917ZgdyfczHwwntlxi codes; unclassified (1 source)Family history of malignant neoplasm of trachea, bronchus and lung; Translations: [FAM HX MALIG NEOPLSM TRACH BRON LNG]Onset: 78-51-2763Nxgccmkm Residual codes; unclassified (1 source)Asymptomatic menopausal state; Translations: [ASYMPTOMATIC MENOPAUSAL STATE]Onset: 20-18-2901CpozxhcuLbpquxyg codes; unclassified (3 sources)Menopause present; Translations: [Asymptomatic menopausal state] Onset: 396379-25-0669EzdqhitcVfsqmexf codes; unclassified (1 source)Other amnesia; Translations: [Memory loss]Onset: 63-26-3452Acsvfpkq Unclassified (1 source)COUGH, UNSPECIFIED; Translations: [COUGH, UNSPECIFIED]Onset: 02-22-2022 Results Test NameValueInterpretationReference RangeFacilityCNOVon 40-06-1056WPBEJunupt Visit (GENSMN) SHEY OBRIEN ([id number]) 1950 F Date Time Provider Department 04/23/25 [...] Katarzyna Snyder APRN.CNP 04/23/2025 12:10 PM Signed [facility] Clinic Date: [...] hernia recurrence; discussed potentia (more content not included)...NormalBlanchard Valley Health System LUNG SCREENING LOW DOSEon 77-45[place]7799[place] [address] [place] Scan Report Signed Patient: SHEY OBRIEN MR#: [id number] : 1950 Acct:[id number] Age/Sex: 74 / F ADM Date: 03/04/25 Loc: CT Attending Dr: Latrell Jack M.D. Ordering Physician: Latrell Jack M.D. Date of Service: 03/04/25 Procedure(s): CT lung screening low-dose Accession Number(s): [id number] cc: Latrell Jack M.D. [place] [id number] Patient Name: SHEY OBRIEN MRN: [facility]:[id number] date: 1950 Sex: F Assigned Patient Location: CT Current Patient Location: CT Accession/Order Number: [id number] Exam Date: 03/04/2025 13:52 Report Date: 03/04/2025 [...] Jr., D.O. 03/04/2025 2:31 PM Dictation Location: [place] [address] Electronically authenticated by: [id number] Y Date: 03/04/2025 14:31 Dictated By: Claude Bahena M.D. Signed By: 03/04/25 1433 DD/ 1431 TD/TT: Workplace Trainer And Assessor:TBHRadiology, Radiologist, - 03/04/2025 [place] [address] CT Scan Report Signed Patient: SHEY OBRIEN MR#: [id number] : 1950 Acct:[id number] Age/Sex: 74 / F ADM Date: 03/04/25 Loc: CT Attending Dr: Latrell Jack M.D. Ordering Physician: Latrell Jack M.D. Date of Service: 03/04/25 Procedure(s): CT lung screening low-dose Accession Number(s): [id number] cc: Latrell Jack M.D. The [address] [address] Patient Name: SHEY OBRIEN MRN: [facility]:[id number] date: 1950 Sex: F Assigned Patient Location: CT Current Patient Location: CT Accession/Order Number: [id number] Exam Date: 03/04/2025 13:52 Report Date: 03/04/2025 [...] Jr., D.O. 03/04/2025 2:31 PM Dictation Location: [place] [address] Electronically authenticated by: [id number] Y Date: 03/04/2025 14:31 Dictated By: Claude Bahena M.D. Signed By: 03/04/25 1433 DD/ 1431 TD/TT: Workplace Trainer And Assessor: [facility] HealthcareRadiology Study observation (narrative)NOMS HealthcareCT LUNG SCREENING LOW DOSEOrdered By: Radiologist Radiology on 68-66-5192[facility] Work Phone: mm TOMOSYNTHESIS SCREENING BIon 19-30-6555[place]tl[place], [place] [address] Mammography Report Signed Patient: SHEY OBRIEN MR#: [id number] : 1950 Acct:[id number] Age/Sex: 74 / F ADM Date: 02/27/25 Loc: MAMMO Attending Dr: Latrell Jack M.D. Ordering Physician: Latrell Jack M.D. Results: Date of Service: 02/27/25 Follow Up: Procedure(s): MM tomosynthesis screening BI Accession Number(s): [id number] cc: Latrell Jack M.D. Patient Name: SHEY OBRIEN MR#: [id number] : 1950 Exam Date: 02/27/2025 Ordering Doctor: [...] at age 46. LOCATION: [facility] BREAST COMPOSITION: The breasts are almost [...] MD on 02/27/2025 at 14:04 Approved by: aP Villa MD on 02/27/2025 at 14:07 Dictated By: Pa Villa M.D. Signed By: 02/27/25 1407 DD/ 140 TD/TT: Workplace Trainer And Assessor:TBHRadiology, RadiologistMD - 02/27/2025 [place] [address] Mammography Report Signed Patient: SHEY OBRIEN MR#: [id number] : 1950 Acct:[id number] Age/Sex: 74 / F ADM Date: 02/27/25 Loc: MAMMO Attending Dr: Latrell Jack M.D. Ordering Physician: Latrell Jack M.D. Results: Date of Service: 02/27/25 Follow Up: Procedure(s): MM tomosynthesis screening BI Accession Number(s): [id number] cc: Latrell Jack M.D. Patient Name: SHEY OBRIEN MR#: [id number] : 1950 Exam Date: 02/27/2025 Ordering Doctor: [...] at age 46. LOCATION: [facility] BREAST COMPOSITION: The breasts are almost [...] Signed By: 02/27/25 1407 DD/ 06 TD/TT: Workplace Trainer And Assessor: [facility] HealthcareRadiology Study observation (narrative)[facility] TOMOSYNTHESIS SCREENING BIOrdered By: Radiologist Radiology on 5371KXECOzarks Medical Center Work Phone: c Urineon 62-75-2206Kzwpdols identified Cx Nom (U) Microbiology PROCEDURE: Urine [...] Locations R1: This test was performed at: [facility], [address] [place] [address], [address]- , , YteomoNvzdeaMercy Health St. Elizabeth Boardman HospitalComment on above:Performed By: #### [id number] #### [facility] [address] [place] [address]Cfqozifzjvm [Mass/volume] in Serum or PlasmaOrdered By: Erik Kim on 40-08-8814Fqljmjxxamu [Mass/Vol]Cholesterol [Mass/volume] in Serum or Gaeycl705-547VpezwcqmhOhiohealth Nelsonville Health CenterComment on above:Chol less than 200 mg/dl low riskChol 201-239 mg/dl borderline riskChol 240 mg/dl and greater high riskCholesterol [Mass/Vol]149 mg/yOKiiydj286-341 [facility] CenterComment on above:Chol less than 200 mg/dl low riskChol 201-239 mg/dl borderline riskChol 240 mg/dl and greater high riskResult Comment: Chol less than 200 mg/dl low risk Chol 201-239 mg/dl borderline risk Chol 240 mg/dl and greater high riskPerformed By: #### TSH3 wRFLX, LIPID, [id number] #### [facility] [address] [place] [address] USACholesterol in HDL [Mass/volume] in Serum or PlasmaOrdered By: Erik Kim on 69-09-7413Nbwojxiobjk in HDL [Mass/Vol]Serum or plasma high density lipoprotein (HDL) cholesterol qnpwenwfswb50-22Uugsmfjil51 Patterson StreetComment on above:HDL CHOL ATP-III CLASSIFICATION Cardiovascular RiskHDL > or equal to 60 mg/dL LOWHDL < 40 mg/dL HIGHCholesterol in HDL [Mass/Vol]42 mg/pIGvqfei43-81DvljtvveiOhiohealth Nelsonville Health CenterComment on above:HDL CHOL ATP-III CLASSIFICATION Cardiovascular RiskHDL > or equal to 60 mg/dL LOWHDL < 40 mg/dL HIGHResult Comment: HDL CHOL ATP-III CLASSIFICATION Cardiovascular Risk HDL > or equal to 60 mg/dL LOW HDL < 40 mg/dL HIGHPerformed By: #### TSH3 wRFLX, LIPID, [id number] #### [facility] [address] [place] [address] USACholesterol in LDL Calc [Mass/Vol]Ordered By: Erik Kim on 40-20-5612Bqbbchjutcm in LDL [Mass/Vol]Cholesterol in LDL [Mass/volume] in Serum or Plasma by calculation0[facility] Health CenterComment on above:LDL ATP III CLASSIFICATIONLDL less than 100 mg/dL OptimalLDL 100-129 mg/dL Near or above ectyzhbXLP910-689 mg/dL Borderline highLDL 160-189 mg/dL HighLDL greater than 189 mg/dL Very highCholesterol in LDL [Mass/Vol]39 mg/dL0[facility] Health CenterComment on above:LDL ATP III CLASSIFICATIONLDL less than 100 mg/dL OptimalLDL 100-129 mg/dL Near or above nizzjprUNW285-017 mg/dL Borderline highLDL 160-189 mg/dL HighLDL greater than 189 mg/dL Very highCholesterol in VLDL Calc [Mass/Vol]Ordered By: Erik Kim on 75-28-4065Pyounkgyqrk in VLDL [Mass/Vol]Cholesterol in VLDL [Mass/volume] in Serum or Plasma by calculationOhiohealth Nelsonville Health CenterCholesterol in VLDL [Mass/Vol]67 mg/dLOhiohealth Nelsonville Health Center Lipid Panelon 91-95-1612QDB Cholesterol,Kltrfokbnx78 mg/dLNormal0-100The [facility] Physician GroupComment on above:Result Comment: LDL ATP III CLASSIFICATION LDL less than 100 mg/dL Optimal LDL 100-129 mg/dL Near or above optimal LDL 130-159 mg/dL Borderline high LDL 160-189 mg/dL High LDL greater than 189 mg/dL Very highPerformed By: #### TSH3 wRFLX, LIPID, [id number] #### [facility] [address] [place] [address] USATriglyceride w/Zdeaww260 mg/dLHigh0-149The [facility] Physician GroupComment on above:Result Comment: TRIG ATP III CLASSIFICATION TRIG less than 150 mg/dL Normal TRIG 150-199 mg/dL Borderline high TRIG 200-500 mg/dL High TRIG greater than 500 mg/dL Very high Standard traceable to the Center for Disease Conrtrol and Prevention (CDC) test method.Performed By: #### TSH3 wRFLX, LIPID, [id number] #### [facility] [address] [place] [address] USAVLDL MXVTHEOSGZW90 mg/dLNormHCA Florida Central Tampa Emergency Physician GroupComment on above:Performed By: #### TSH3 wRFLX, LIPID, [id number] #### [facility] [address] [place] [address] USASerum or plasma total cholesterol/high density lipoprotein (HDL) cholesterol mass ratOrdered By: Erik Kim on 12-13-2024 Cholesterol.total/Cholesterol in HDL [Mass ratio]Serum or plasma total cholesterol/high density lipoprotein (HDL) cholesterol mass rat<5.0[facility] Health CenterCholesterol.total/Cholesterol in HDL [Mass ratio]3.5 {ratio}Normal<5.0[facility] Health CenterComment on above:Performed By: #### TSH3 wRFLX, LIPID, [id number] #### [facility] [address] [place] [id number] USAThyroid Stim Hormone w/Rflxon 27-48-9441Hdclynq Stim Hormone w/Rflx1.95 u[iU]/mLNormal0.45-5.33The [facility] Physician GroupComment on above:Performed By: #### TSH3 wRFLX, LIPID, [id number] #### [facility] [address] [place] [id number] USAThyrotropin [Units/volume] in Serum or PlasmaOrdered By: Erik Kim on 74-04-6398QLC QnThyrotropin [Units/volume] in Serum or Plasma0.45-5.33[facility] Health CenterTSH Qn1.95 m[IU]/L0.45-5.33 [facility] Health CenterTriglyceride [Mass/volume] in Serum or Plasma Ordered By: Erik Kim on 18-03-9770Nfusykkeskaq [Mass/Vol] Triglyceride [Mass/volume] in Serum or PlasmaHigh0-149[facility] CenterComment on above:TRIG ATP III CLASSIFICATIONTRIG less than 150 mg/dL NormalTRIG 150-199 mg/dL Borderline highTRIG 200-500 mg/dL High TRIG greater than 500 mg/dL Very highStandard traceable to the Center for Disease Conrtrol and Prevention (CDC) test method.Triglyceride [Mass/Vol]338 mg/dLHigh0-149 [facility] CenterComment on above:TRIG ATP III CLASSIFICATIONTRIG less than 150 mg/dL NormalTRIG 150-199 mg/dL Borderline highTRIG 200-500 mg/dL High TRIG greater than 500 mg/dL Very highStandard traceable to the Center for Disease Conrtrol and Prevention (CDC) test method. Vitamin D 25 Hydroxy Totalon 88-75-4251Tkmqfha D 25 Hydroxy Total26.8 ng/mLLow 30-100The [facility] Physician GroupComment on above:Result Comment: VITAMIN D STATUS 25(OH)VITAMIN D RANGE (ng/mL) Deficient <20 Insufficient 20 to <30 Sufficient 30 to 100 Reference: Abdi MF,Shannon NC, Danyel HICKS, et al. Evaluation,treatment, and prevention of vitamin D deficiency; an Endocrine Society clinical practice guideline. JCEM. 2010; 96(7):1911-30. PERFORMED BY: [place] [address] PATHOLOGIST [employer] DEVELOPER AVRIL LEDESMA M.D.Performed By: #### TSH3 wRFLX, LIPID, [id number] #### [facility] [address] [place] [id number] [facility] MEDICAL CENTERVitamin D+Metabolites [Mass/volume] in Serum or Plasma Ordered By: Erik Kim on 72-13-9430Hynevhw D+Metabolites [Mass/Vol] Vitamin D+Metabolites [Mass/volume] in Serum or OatepcBrl76-284PoeieicyzOhiohealth Nelsonville Health CenterComment on above:VITAMIN D STATUS 25(OH)VITAMIN D RANGE (ng/mL) Deficient <20 Insufficient 20 to <39Ecygplkuxx77 to 100Reference: Shannon Remy, Danyel HICKS, et al. Evaluation,treatment, and prevention of vitamin D deficiency; an Endocrine Society clinical practice guideline. [facility]. 2010; 96(7):1910-.Vitamin D+Metabolites [Mass/Vol]26.8 ng/mLLow 30-100[facility] CenterComment on above:VITAMIN D STATUS 25(OH)VITAMIN D RANGE (ng/mL) Deficient <20 Insufficient 20 to <70Qvnmnbdjxp42 to 100Reference: Shannon Remy, Danyel HICKS, et al. Evaluation,treatment, and prevention of vitamin D deficiency; an Endocrine Society clinical practice guideline. [facility]. 2010; 96(7):1910-.CBC w/ Auto Diffon 41-76-9266Zycjrpfv Absolute0.0 E9/LNormal0.0-0.2FSt. Anthony's HospitalComment on above:Performed By: #### [id number] #### [facility] [address] [place], [place] [address]Ujaipsgrd/100 WBC (Bld)0.3 %Normal0.0-2.0Pomerene HospitalComment on above:Performed By: #### [id number] #### [facility] [address] [place], [place] [address]Eof Absolute0.2 E9/LNormal0.0-0.5FSt. Anthony's Hospital Comment on above:Performed By: #### [id number] #### [facility] [address] [place], [place] [address]Bawrcsgscka/100 WBC (Bld)2.8 %Normal0.0-8.0Pomerene HospitalComment on above:Performed By: #### [id number] #### [facility] [address] [place], [place] [address]Otspulpqeqh distribution width (RBC) [Ratio]14.7 %High10.9-14.2 [facility]rene HospitalComment on above:Performed By: #### [id number] #### [facility] [address] [place], [place] [address]Jvxlupppyc (Bld) [Volume fraction]40.9 %Gwfrhf53.0-46.0P[facility]rene HospitalComment on above:Performed By: #### [id number] #### [facility] [address] [place], [place] [address]Vptrbhmaxz (Bld) [Mass/Vol]14.1 g/fTTgvbiu21.0-16.0[facility] HospitalComment on above:Performed By: #### [id number] #### [facility] [address] [place], [place] [address]Fyzym Absolute2.0 E9/LNormal1.0-4.0[facility] Comment on above:Performed By: #### [id number] #### [facility] [address] [place] [address]Yhiyyqinkeb/100 WBC (Bld)24.1 %Yeohvc66.0-50.0[facility]rene HospitalComment on above:Performed By: #### [id number] #### [facility] [address] [place] [address]WIA (RBC) [Entitic mass]30.7 vcXuujxz86.0-34.0P[facility]rene HospitalComment on above:Performed By: #### [id number] #### [facility] [address] [place] [address]OHFZ (RBC) [Mass/Vol]34.5 g/hESzshaa29.4-36.0[facility]rene HospitalComment on above:Performed By: #### [id number] #### [facility] [address] [place], [place] [address]NRG (RBC) [Entitic vol]88.8 iDPribfb22.0-100.0[facility]rene HospitalComment on above:Performed By: #### [id number] #### [facility] [address] [place], [place] [address]Kwkp Absolute0.5 E9/LNormal0.2-1.0[facility] Comment on above:Performed By: #### [id number] #### [facility] [address] [place], [place] [address]Kcfetpxpr/100 WBC (Bld)6.8 %Normal4.0-14.0P[facility]rene HospitalComment on above:Performed By: #### [id number] #### [facility] [address] [place], [place] [address]Ciwbli Absolute5.4 E9/LNormal2.0-7.5FSt. Anthony's Hospital Comment on above:Performed By: #### [id number] #### [facility] [address] [place], [place] [address]Ctaepv Auto66.0 %Tliask34.0-75.0[facility] Comment on above:Performed By: #### [id number] #### [facility] [address] [place] [address]Tzlmcpcx796.0 E9/XDczpph687.0-500.0[facility] Comment on above:Performed By: #### [id number] #### [facility] [address] [place] [address]Ojtgsqqw mean volume (Bld) [Entitic vol]8.0 fLNormal6.4-10.8 [facility] HospitalComment on above:Performed By: #### [id number] #### [facility] [address] [place], [place] [address]OFD7.6 E12/LNormal4.3-5.9P[facility]rene HospitalComment on above:Performed By: #### [id number] #### [facility] [address] [place] [address]SJH5.1 E9/LNormal4.0-11.0[facility] HospitalComment on above:Performed By: #### [id number] #### [facility] [address] [place] [address]IMALKEZGCIxetjms By: SYSTEM SYSTEM on 07-96-6112Hbdsqnfxsnsf Screen method >1000 ng/mL Ql (U)NEGATIVE 7 [...] {ratio}Normal 1.1 - 2.2Remisol ChemALP [Catalytic activity/Vol]89 [iU]/pZivspx34 - 98 Int._Unit/LRemisol ChemALT No additional P-5'-P [Catalytic activity/Vol]20 [iU]/dNormal6 - 46 Int._Unit/LRemisol ChemAnion gap [Moles/Vol]11 mmol/LNormal6 - 16 mEq/LRemisol ChemAST [Catalytic activity/Vol]22 [iU]/dNormal5 - 43 Int._Unit/LRemisol ChemBilirubin [Mass/Vol]0.6 mg/dLNormal0.0 - 1.1 mg/dLRemisol ChemCalcium [Mass/Vol]9.2 mg/dLNormal8.9 - 11.1 mg/dLRemisol ChemChloride [Moles/Vol]101 mmol/XGvawbd407 - 111 mmol/LRemisol ChemCO2 [Moles/Vol]28 mmol/L Skylgr18 - 31 mmol/LRemisol ChemCreatinine [Mass/Vol]0.9 mg/dLNormal0.5 - 1.3 mg/dLRemisol ChemEthanol Lvlmg/dLNormal<=11mg/dLRemisol ChemGFR/1.73 sq M.predicted MDRD (S/P/Bld) [Vol rate/Area]67 mL/min/1.73 z8Agsqmg>=59mL/min/1.73 j1Shyjvms ChemGlobulin (S) [Mass/Vol]2.9 g/dLNormal1.4 - 4.0 gm/dLRemisol Chem Glucose [Mass/Vol]133 mg/xCEppxzs07 - 199 mg/dLRemisol ChemPotassium [Moles/Vol] 3.5 mmol/LNormal3.5 - 5.3 mmol/LRemisol ChemProtein [Mass/Vol]6.9 g/dLNormal6.0 - 7.8 gm/dLRemisol ChemSodium [Moles/Vol]136 mmol/IRgzhqf659 - 145 mmol/LRemisol ChemUrea nitrogen [Mass/Vol]22 mg/dLHigh5 - 21 mg/dLRemisol ChemUrea nitrogen/Creatinine [Mass ratio]24 mg/kvOnar64 - 20Remisol ChemCMPon 12-12-2024 Albumin [Mass/Vol]4.0 g/dLNormal3.3-5.0[facility] HospitalComment on above:Performed By: #### [id number] #### [facility] [address] [place], [place] [address]Iauwgja/Globulin [Mass ratio]1.4 {ratio}Normal1.1-2.2FSt. Anthony's HospitalComment on above:Performed By: #### [id number] #### [facility] [address] [place], [place] [address]Gio Phos89 Int._Unit/DSadwsd00-93MdjganPomerene Hospital Comment on above:Performed By: #### [id number] #### [facility] [address] [place] [address]EGC18 Int._Unit/LNormal6-46[facility] HospitalComment on above:Performed By: #### [id number] #### [facility] [address] [place], [place] [address]Lnmqd gap [Moles/Vol]11 mmol/LNormal6-16[facility] HospitalComment on above:Performed By: #### [id number] #### [facility] [address] [place] [address]GGI51 Int._Unit/LNormal5-43[facility] HospitalComment on above:Performed By: #### [id number] #### [facility] [address] [place], [place] [address]Vpfu Total0.6 mg/dLNormal0.0-1.1FSt. Anthony's Hospital Comment on above:Performed By: #### [id number] #### [facility] [address] [place], [place] [address]SXS/Creat Ratio24 No LsyaaFixr43-98PxxxrpPomerene Hospital Comment on above:Performed By: #### [id number] #### [facility] [address] [place], [place] [address]Dnsurai [Mass/Vol]9.2 mg/dLNormal8.9-11.1FSt. Anthony's HospitalComment on above:Performed By: #### [id number] #### [facility] [address] [place], [place] [address]Lclnwcmp [Moles/Vol]101 mmol/KThslfw044-672UbqyccPomerene HospitalComment on above:Performed By: #### [id number] #### [facility] [address] [place], [place] [address]PZ7 [Moles/Vol]28 mmol/QRehsqj45-82ObpwwsPomerene Hospital Comment on above:Performed By: #### [id number] #### [facility] [address] [place], [place] [address]Mrcndmxnby [Mass/Vol]0.9 mg/dLNormal0.5-1.3FSt. Anthony's HospitalComment on above:Performed By: #### [id number] #### [facility] [address] [place], [place] [address]Zmwcwbfq (S) [Mass/Vol]2.9 g/dLNormal1.4-4.0[facility] HospitalComment on above:Performed By: #### [id number] #### [facility] [address] [place], [place] [address]Iwuxzdi [Mass/Vol]133 mg/jJUcqqoe08-131JhnhlhPomerene HospitalComment on above:Performed By: #### [id number] #### [facility] [address], [place] [address]Wxlhoadky [Moles/Vol]3.5 mmol/LNormal3.5-5.3FSt. Anthony's HospitalComment on above:Performed By: #### [id number] #### [facility] [address], [place] [address]Teyfytz [Mass/Vol]6.9 g/dLNormal6.0-7.8Pomerene HospitalComment on above:Performed By: #### [id number] #### [facility] [address], [place] [address]Jmvank [Moles/Vol]136 mmol/LIghsst860-072FszhshPomerene HospitalComment on above:Performed By: #### [id number] #### [facility] [address], [place] [address]Jmwa nitrogen [Mass/Vol]22 mg/dLHigh5-21P[facility]rene HospitalComment on above:Performed By: #### [id number] #### [facility] [address] [place] [address] 65507AN Clinical Summaryon 61-20-8184PQ Clinical SummaryED Clinical Summary [address] [address] ED Clinical Summary Person Information Name: SHEY OBRIEN/Herminia Age: 74 Years : 1950 Sex: Female Language: Saudi Arabian PCP: LATRELL JACK MD Marital Status: Single [...] 12/12/2024 17:40:09 12/12/2024 17:40:09 12/12/2024 17:40:09 ADDRESS: [address] [place] [id number] PHYS DOC NOTES: MEDICAL INFORMATION: Prescriptions Given: [...] culture. MHP evaluated. Patient be placed at [address] Kim. Assessment/Plan Suicidal ideation [...] 88.8 fL (12/12/24 13:50 (more content not included)...[facility] HospitalComment on above:Result Comment: Electronically Signed By: Elmer Kohli DO\.br\Date and Time Signed: 12/12/24 17:26 EDTED Patient Education Noteon 88-37-6085KM Patient Education NoteED Patient Education NoteNormBethesda North [facility] Patient Summaryon 97-33-6971TI Patient SummaryED Patient Summary [place] [id number] Patient Discharge Instructions Person Information Name: SHEY OBRIEN Age: 74 Years Arrival Date: 12/12/2024 13:24:04 Discharge Diagnosis: Suicidal ideation Primary Care Physician: LATRELL JACK MD Provider Information Primary Provider: Elmer Kohli DO Advanced Oleomargarine Maker:None The exam and treatment you received in the Emergency Department were for an urgent problem and are not intended as complete care. It is important that you follow up with a doctor, nurse practitioner,or physician???s pharmacist assistant for ongoing care. If your symptoms [...] opioids can be used to help relieve teleujwa-iz-erdzsu pain and are often prescribed following a [...] be struggling with addiction, tell your health care tech and askfor guidance or call [facility]???S National Helpline at 3-650-241-TPEI. g Source: US Department of Health and Human Services/Center for Disease Control & Prevention Amer (more content not included)...NormalPomerene HospitalEthanolon 17-59-1950Ofxnwsd Lvl<10Normal<=11[facility] Comment on above:Performed By: #### [id number] #### [facility] [address], [place] [address]FEBHLATOMLSmrnvqh By: SYSTEM SYSTEM on 81-32-7096Eoxxyirtu/100 WBC (Bld)0.3 %Normal0.0 - 2.0 %Remisol HemeBasophils/Leukocytes Auto (Bld) [Pure # fraction]0.0 E9/LNormal0.0 - 0.2 E9/LRemisol HemeEosinophils (Bld) [#/Vol]0.2 E9/LNormal0.0 - 0.5 E9/LRemisol HemeEosinophils/100 WBC (Bld)2.8 %Normal0.0 - 8.0 %Remisol HemeErythrocyte distribution width (RBC) [Ratio]14.7 %High10.9 - 14.2 %Remisol HemeHematocrit (Bld) [Volume fraction]40.9 %Dgaqyu97.0 - 46.0 % Remisol HemeHemoglobin (Bld) [Mass/Vol]14.1 g/iVQawpvz52.0 - 16.0 gm/dLRemisol HemeLymphocytes (Bld) [#/Vol]2.0 E9/LNormal1.0 - 4.0 E9/LRemisol Heme Lymphocytes/100 WBC (Bld)24.1 %Djajwh80.0 - 50.0 %Remisol HemeMCH (RBC) [Entitic mass]30.7 ctJtwpwr68.0 - 34.0 pgRemisol HemeMCHC (RBC) [Mass/Vol]34.5 g/dL Gibqwh72.4 - 36.0 gm/dLRemisol HemeMCV (RBC) [Entitic vol]88.8 mRQvanuh26.0 - 100.0 fLRemisol HemeMonocytes (Bld) [#/Vol]0.5 E9/LNormal0.2 - 1.0 E9/LRemisol HemeMonocytes/100 WBC (Bld)6.8 %Normal4.0 - 14.0 %Remisol HemeNeutrophils (Bld) [#/Vol]5.4 E9/LNormal2.0 - 7.5 E9/LRemisol HemeNeutrophils/100 WBC (Bld)66.0 % Upijjh88.0 - 75.0 %Remisol HemePlatelet mean volume (Bld) [Entitic vol]8.0 fL Normal6.4 - 10.8 fLRemisol HemePlatelets (Bld) [#/Vol]168.0 E9/YIvxiii617.0 - 500.0 E9/LRemisol HemeRBC (Bld) [#/Vol]4.6 E12/LNormal4.3 - 5.9 E12/LRemisol HemeWBC corrected for nucl RBC Auto (Bld) [#/Vol]8.1 E9/LNormal4.0 - 11.0 E9/L Remisol HemeU Drug Screenon 12-12-2024 Amph ScrNegativeNormalNEGATIVEPomerene HospitalComment on above:Result Comment: Negative Cutoff: <1000 ng/mLPerformed By: #### [id number] #### [facility] [address], [place] [address]H Jessica ScrNegativeNormalNEGATIVEPomerene Hospital Comment on above:Result Comment: Negative Cutoff: <200 ng/mLPerformed By: #### [id number] #### [facility] [address], [place] [address]K Benzodia ScrNegativeNormalNEGATIVEPomerene Hospital Comment on above:Result Comment: Negative Cutoff: <200 ng/mLPerformed By: #### [id number] #### [facility] [address] [place] [address] 611[address]J Cannab ScrNegativeNormalNEGATIVEPomerene Hospital Comment on above:Result Comment: Negative Cutoff: <50 ng/mLPerformed By: #### [id number] #### [facility] [address] [place] [address] 389[address]K Cocaine ScrNegativeNormalNEGATIVEPomerene Hospital Comment on above:Result Comment: Negative Cutoff: <300 ng/mLPerformed By: #### [id number] #### [facility] [address] [place] [address] 463[address]Z FentanylNegativeNormalNEGEast [facility] Regional Hospital Comment on above:Result Comment: Negative Cutoff: <5 ng/mL These drug screen results are to be used for medical (i.e., treatment) purposes only. Unconfirmed drug screening results must not be used for non-medical purposes (e.g., employment testing, legal testing).Performed By: #### [id number] #### [facility] [address], [place] [address]M Opiate ScrNegativeNormalNEGEast Ohio Regional Hospital Comment on above:Result Comment: Negative Cutoff: <300 ng/mLPerformed By: #### [id number] #### [facility] [address] [place] [address] 631[address]B PCP ScrNegativeNormalNEGEast Ohio Regional Hospital Comment on above:Result Comment: Negative Cutoff: <25 ng/mL These drug screen results are to be used for medical (i.e., treatment) purposes only. Unconfirmed drug screening results must not be used for non-medical purposes (e.g., employment testing, legal testing).Performed By: #### [id number] #### [facility] [address] [place] [address] 236[address]UE with Cult Rflxon 40-78-8264Tecjf (U)Light-YellowNormalYellow [facility] HospitalComment on above:Result Comment: Microscopic readings are only performed on those samples that meet specific criteria set forth by [facility].Performed By: #### [id number] #### [facility] [address], [place] [address]Fmgkztt (U) [Mass/Vol]NegativeNormalNegativePomerene HospitalComment on above:Performed By: #### [id number] #### [facility] [address], [place] [address]Xnxtapz Ql (U)NegativeNormalNegBrecksville VA [facility]ille [facility] Comment on above:Performed By: #### [id number] #### [facility] [address], [place] [address]LW BloodNegativeNoatrium health ansonNegBrecksville VA / [facility] Hospital Comment on above:Performed By: #### [id number] #### [facility] [address], [place] [address]QI Bacteria1+ /HPFAbnormalTracePomerene Hospital Comment on above:Performed By: #### [id number] #### [facility] [address], [place] [address]YV ClarityClearNormalClearPomerene HospitalComment on above:Performed By: #### [id number] #### [facility] [address], [place] [address]ON Leuk Est75 Marbella/uLAbnormalNegBrecksville VA / [facility]ille [facility] Comment on above:Performed By: #### [id number] #### [facility] [address], [place] [address]NG MucousTraceNormalNegBrecksville VA / Crille HospitalComment on above:Performed By: #### [id number] #### [facility] [address], [place] [address]BM NitriteNegativeNormalNegBrecksville VA / [facility]ille [facility] Comment on above:Performed By: #### [id number] #### [facility] [address], [place] [address]UB pH5.5Invalid Interpretation Code5.0-9.0P[facility]rene HospitalComment on above:Performed By: #### [id number] #### [facility] [address] [place] [address]CZ ProteinNegativeNormalNegativeP[facility]rene Hospital Comment on above:Performed By: #### [id number] #### [facility] [address] [place] [address]AT Spec Grav1.009Invalid Interpretation Code1.005-1.030P[facility] HospitalComment on above:Performed By: #### [id number] #### [facility] [address] [place] [address] 227[address]KK Squam Epithelial0-2Invalid Interpretation CodePomerene HospitalComment on above:Performed By: #### [id number] #### [facility] [address] [place] [address]UP UrobilinogenNegativeNormalNegBrecksville VA / Crille HospitalComment on above:Performed By: #### [id number] #### [facility] [address] [place] [address]Grgiexaiwmxw (U) [Mass/Vol]NegativeNormalNegativePomerene HospitalComment on above:Performed By: #### [id number] #### [facility] [address] [place] [address]LL Spec DescClean CatchNormalPomerene HospitalComment on above:Performed By: #### [id number] #### [facility] [address] [place] [address] 76877CERJXSEWMNAvrbxmb By: SYSTEM SYSTEM on 93-49-3793Ikdqxmxo Auto Ql (U)1+ /HPFInvalid Interpretation CodeTrace/HPFFTMC UA Auto SSBilirubin Ql (U) NegativeNormalNegativemg/dLFTMC UA Auto SSClarity (U)Clear (12/12/24 2:18 PM)NormalClearFTMC UA Auto SSColor (U)Light-Yellow 3 (12/12/24 2:18 PM)NormalYellowSAINT FRANCIS [facility] UA Auto SSComment on above:Interpretive Data: Microscopic readings are only performed on those samples that meet specific criteria set forth by [facility].Epithelial cells.squamous Auto (Urine sed) [#/Area]0-2 graded/HPFInvalid Interpretation CodeSAINT FRANCIS [facility]OS[facility]ITAL [facility] UA Auto SSGlucose Ql (U)NegativeNormalNegativemg/dLSAINT FRANCIS [facility]OSPITAL [facility] UA Auto SS Hemoglobin Auto test strip (U) [Mass/Vol]NegativeNormalNegativemg/dLSAINT FRANCIS [facility]OSPITAL [facility] [place] UA Auto SSKetones Auto test strip Ql (U)NegativeNormalNegativemg/dLSAINT FRANCIS [facility]OS[facility]ITAL [facility] [place] UA Auto SS Leukocyte esterase Auto test strip Ql (U)75 [place]ella/uL Marbella/uLInvalid Interpretation CodeNegativeLeu/uLSAINT FRANCIS HOSPITAL [facility] UA Auto SSMucus Auto Ql (U)Trace graded/LPFNormal Negativegraded/LPFFCOMMUNITY HOSPITAL [facility] [place] UA Auto SSNitrite Auto test strip Ql (U)NegativeNormal Negativemg/dLSAINT FRANCIS [facility]OSPITAL [facility] [place] UA Auto SSpH (U)5.5 *NA* (12/12/24 2:18 PM)Invalid Interpretation Code5.0 - 9.0[facility] UA Auto SSProtein Ql (U)NegativeNormalNegativemg/dLSAINT FRANCIS [facility]ITAL [facility] UA Auto SSSpecific gravity (U) [Rel density] 1.009 *NA* (12/12/24 2:18 PM)Invalid Interpretation Code1.005 - 1.030[facility] UA Auto SS Urobilinogen (U) [Mass/Vol]NegativeNormalNegativemg/dLSAINT FRANCIS [facility]OSPITAL [facility] UA Auto SSURINALYSIS Ordered By: Elmer Kohli on 64-69-7511IM Spec DescClean Catch (12/12/24 2:18 PM)NormalSAINT FRANCIS [facility]OSPITAL S[facility] UA Auto SS XR HIP LT MIN 2Von 28-22-3326T[address] [address] XRay Report Signed Patient: SHEY OBRIEN MR#: [id number] : 1950 Acct:[id number] Age/Sex: 74 / F ADM Date: 12/12/24 Loc: RAD Attending Dr: Will Chintan STRATEGY MANAGER Ordering Physician: Will Woodson NP Date of Service: 12/12/24 Procedure(s): XR hip LT min 2V Accession Number(s): [id number] cc: Will Woodson NP; Latrell Jack M.D. The [address] [address] Patient Name: SHEY OBRIEN MRN: [id number] date: 1950 Sex: F Assigned Patient Location: PM Current Patient Location: Accession/Order Number: [id number] Exam Date: 12/12/2024 10:32 Report Date: 12/12/2024 [...] Narvaez M.D. 12/12/2024 10:34 AM Dictation Location: [place] [address] Electronically authenticated by: [id number] Y Date: 12/12/2024 10:34 Dictated By: Juliane Narvaez M.D. Signed By: 12/12/24 1037 DD/ 1034 TD/TT: Workplace Trainer And Assessor:TBHRadiology, Radiologist, MD - 12/12/[address] [address] XRay Report Signed Patient: SHEY OBRIEN MR#: [id number] : 1950 Acct:[id number] Age/Sex: 74 / F ADM Date: 12/12/24 Loc: RAD Attending Dr: Will Woodson NP Ordering Physician: Will Woodson NP Date of Service: 12/12/24 Procedure(s): XR hip LT min 2V Accession Number(s): [id number] cc: Will Woodson NP; Latrell Jack M.D. [place] [id number] Patient Name: SHEY OBRIEN MRN: [id number] date: 1950 Sex: F Assigned Patient Location: PM Current Patient Location: PM Accession/Order Number: [id number] Exam Date: 12/12/2024 10:32 Report Date: 12/12/2024 [...] Narvaez M.D. 12/12/2024 10:34 AM Dictation Location: [place] [address] Electronically authenticated by: [id number] Y Date: 12/12/2024 10:34 Dictated By: Juliane Narvaez M.D. Signed By: 12/12/24 1037 DD/ 1034 TD/TT: Workplace Trainer And Assessor: NOMS HealthcareRadiology Study observation (narrative)NOMS HealthcareXR HIP LT MIN 2VOrdered By: Radiologist Radiology on 76-68-7982GMJD Healthcare Work Phone: eGFRon 97-33-6508wTND72 mL/min/1.73 v9Ypncsa>=59Fisher [facility] Medical CenterComment on above:Performed By: #### [id number] #### [facility] [address] [place] [address]UHN CBC WITH AUTO DIFFon 61-44-5594PYUSYLQRK ABSOLUTE NBVG9UDZJ HealthcareBasophils/100 WBC (Bld)0.4 %0.2 - 2.0 %NOM HealthcareEosinophils/100 WBC (Bld)3.5 %0.9 - 7.0 %[facility] HealthcareErythrocyte distribution width (RBC) [Ratio]12.8 %11.0 - 15.0 %[facility] HealthcareHematocrit (Bld) [Volume fraction]39.2 %36.0 - 48.0 %[facility] Medical CenterHemoglobin (Bld) [Mass/Vol]13.1 g/dL12.0 - 16.0 g/dLOzarks Medical CenterIMMATURE GRANULOCYTES ABS AUTO0.09HighNOFreeman Neosho HospitalImmature granulocytes/100 WBC (Bld)1.3 %High0.0 - 0.5 %[facility] HealthcareInterpretation and review of laboratory resultsAbnormalOzarks Medical CenterLYMPHOCYTES ABSOLUTE AUTO1.2 NOMHermann Area District HospitalLymphocytes/100 WBC (Bld)18.3 %Low20.5 - 60.0 %[facility]ox MonettH (RBC) [Entitic mass]31.9 pg26.7 - 34.0 pgNOFreeman Neosho HospitalMCHC (RBC) [Mass/Vol] 33.4 g/dL29.9 - 35.2 g/dLCox MonettV (RBC) [Entitic vol]95.4 fL81.0 - 99.0 fLOzarks Medical CenterMONOCYTES ABSOLUTE AUTO0.4NOMS HealthcareMonocytes/100 WBC (Bld)6.5 %1.7 - 12.0 %[facility] Medical CenterNEUTROPHILS ABSOLUTE AUTO4.7[facility] Neutrophils/100 WBC (Bld)70 %43.0 - 75.0 %[facility] Medical CenterPlatelet mean volume (Bld) [Entitic vol]10.6 fL9.5 - 13.5 fLNOFreeman Neosho HospitalTB EO #0.2[facility] Healthcare TBH REE429RWUYSaint Luke's Health System RBC4.11LowNOFreeman Neosho HospitalTB WBC6.8NOFreeman Neosho Hospital CLINISYNCBEAR RIVER VALLEY HOSPITAL HealthcareCNOVon 85-60-4697DDFJQrgxzx Visit (GENN) SHEY OBRIEN ([id number]) 1950 F Date Time Provider Department 08/07/24 [...] dry Temperature: No Drains: No Katarzyna Snyder APRN.CLINICAL RESEARCH ANALYST 08/07/2024 3:37 PM Signed [facility] Clinic Date: [...] completed prior to appointment Katarzyna Snyder, MSN, CLINICAL RESEARCH ANALYST August 07, 2024 Referring Provider: BARI CASTILLO [[id number]] Allergies As of Date: 08/07/2024 (No Known Allergies) Date Reviewed: 08/07/2024 Reviewed by: Olga Lidia Blake MA - Fully Assessed Reason for Visit: Post Op [174] Primary Visit Diagnosis:Postoperative visit [Z (more content not included)... [facility] 12 leadon 29-53-0913Jnklrqrxpkt Rate : 66 BPM Atrial Rate : 66 BPM P-R Interval : 158 ms QRS Duration : 78 ms Q-T Interval : 404 ms QTC Calculation(Bazett) : 423 ms Calculated P [place] : 32 degrees Calculated R [place] : 14 degrees Calculated T [place] : 54 degrees NORMAL SINUS RHYTHM NORMAL ECG Confirmed by MD MCCLENDON HEBA ([id number]) on 07/29/2024 12:16:17 PM NAME : SHEY OBRIEN PID : [id number] : 1950 Gender : Female Race : ORD : [id number] Procedure Date : Jul 23 2024 12:08:10 Edit Date : Jul 29 2024 12:16:18 Diagnosis: NORMAL SINUS RHYTHM NORMAL ECG Confirmed by MD MCCLENDON HEBA ([id number]) on 07/29/2024 12:16:17 PM Test Reason : [...] QTC Calculation(Bazett) : 423 ms Calculated P [place] : 32 degrees Calculated R [place] : 14 degrees Calculated T [place] : 54 degrees NORMAL SINUS RHYTHM NORMAL ECG Confirmed by MD MCCLENDON HEBA ([id number]) on 07/29/2024 12:16:17 PM NAME : SHEY OBRIEN PID : [id number] : 1950 Gender : Female Race : ORD : [id number] Procedure Date : Jul 23 2024 12:08:10 Edit Date : Jul 29 2024 12:16:18 Diagnosis: NORMAL SINUS RHYTHM NORMAL ECG Confirmed by MD MCCLENDON HEBA ([id number]) on 07/29/2024 12:16:17 PM Test Reason : Location : 119 : A17 A17 Overread By : MD MCCLENDON HEBA Edited By : MD MCCLENDON HEBA Referred By : XAVIER BOYD Acquired by : SADE HA [facility] 12 leadOrdered By: Radiologist Radiology on 93-38-0584ALQY [employer] Work Phone: basic metabolic 2000 panelon 13-95-8487Ntloh gap [Moles/Vol]12 mmol/LNormal8-15[facility] on above:Order Comment: Specimen Type: BLOOD SPECIMEN [facility]ing Facility[facility] Address: [address] [place], [place] [address]Performed By: #### 65445-3, 78292-9 #### [facility] CLIA [id number] [address] [place] [address] [place] OF AMERICACalcium [Mass/Vol]9.0 mg/dL Normal8.5-10.2[facility] on above:Order Comment: Specimen Type: BLOOD SPECIMEN [facility] Address: [address] [place], [place] [address]Performed By: #### 20837-3, 23452-6 #### [facility] CLIA [id number] [address] [place] [address] [place] AMERICAChloride [Moles/Vol]107 mmol/CXjttji31-640PkallceqcFlower Hospital on above:Order Comment: Specimen Type: BLOOD SPECIMEN [facility] Address: [address] [place], [place] [address]Performed By: #### 22224-1, 66487-8 #### [facility] CLIA [id number] [address] [place] [address] [place] AMERICACO2 [Moles/Vol]24 mmol/L Vbpnna22-20NtwihwhmpFlower Hospital on above:Order Comment: Specimen Type: BLOOD SPECIMEN [facility] Address: [address] [place], [place] [address]Performed By: #### 22458-7, 85915-1 #### [facility] CLIA [id number] [address] [place] [address] [place] AMERICACreatinine [Mass/Vol]0.92 mg/dLNormal0.58-0.96[facility] on above:Order Comment: Specimen Type: BLOOD SPECIMEN [facility] Address: [address] [place], [place] [address]Performed By: #### 24508-4, 57681-6 #### [facility] CLIA [id number] [address] [place] [address] [place] AMERICACreatinine and Glomerular filtration rate.predicted panel (S/P/Bld)66 mL/min/1.73m???Normal>=60[facility] on above:Order Comment: Specimen Type: BLOOD SPECIMEN [facility] Address: [address] [place], [place] [address]Result Comment: Estimated Glomerular Filtration Rate (eGFR) is [...] not accurately reflect actual GFR.Performed By: #### 42063-5, 61866-2 #### [facility] CLIA [id number] [address] [place] [address] [place] AMERICAGlucose [Mass/Vol]112 mg/dL Cyxa89-46CigivapboFlower Hospital on above:Order Comment: Specimen Type: BLOOD SPECIMEN [facility] Address: [address] [place], [place] [address]Result Comment: The [place] Diabetes Association (ADA) provides guidance for cutoff [...] Standards of Medical Care in Diabetes 2016, [place] [employer] Association. Diabetes Care. 2016.39(Suppl 1).Performed By: #### 58207-0, 78293-3 #### [facility] CLIA [id number] [address] [place] [address] [place] AMERICAPotassium [Moles/Vol]3.4 mmol/LLow3.7-5.1[facility] on above:Order Comment: Specimen Type: BLOOD SPECIMEN [facility] Address: [address] [place], [place] [address]Performed By: #### 05140-9, 08128-5 #### [facility] [place] [id number] [address] [place] [address] [place] AMERICASodium [Moles/Vol]143 mmol/L Foewdx851-310VldmubmhsFlower Hospital on above:Order Comment: Specimen Type: BLOOD SPECIMEN [facility] Address: [address] [place], [place] [address]Performed By: #### 86643-3, 42673-3 #### [facility] CLIA [id number] [address] [place] [address] [place] AMERICAUrea nitrogen [Mass/Vol]10 mg/dLNormal7-21[facility] on above:Order Comment: Specimen Type: BLOOD SPECIMEN [facility] Address: [address] [place], [place] [address]Performed By: #### 07296-1, 92804-8 #### [facility] CLIA [id number] [address] [place] [address] STATES OF AMERICACASE MANAGEMon 07-26-2024 CASE MANAGEMHNO ID: [id number] Author: KRISTIE DIAZ, ? Service: ? Author Type: ? Type: Care Mgt Progress Note Filed: 07/26/2024 11:58 Note Text: CARE MANAGEMENT PROGRESS NOTE SERVICE DATE: 07/26/2024 SERVICE TIME: 11:57 AM LOS: 2 days IMM Follow Up Copy Given: Yes Copy given to:: Patient Method: In Person SIGNATURE: Kristie Diaz CMA PATIENT NAME: Shey Obrien DATE: July 26, 2024 TIME: 11:57 AMNormalKettering Health Hamilton W Auto Differential panel (Bld)on 39-92-5999Mzretpbuh (Bld) [#/Vol]10*3/uLNormal<0.11[facility] on above:Order Comment: Specimen Type: BLOOD SPECIMEN [facility] Address: [address] [place], [place] [address]Performed By: #### 12849-0, HSTNT, 69466-5, 2777-1 #### [facility] CLIA [id number] [address] [place] [address] [place] AMERICABasophils/100 WBC (Bld)0.3 % NormalFlower Hospital on above:Order Comment: Specimen Type: BLOOD SPECIMEN [facility] Address: [address] [place], [place] [address]Performed By: #### 43115-9, HSTNT, , 2776-07 #### [facility] CLIA [id number] [address] [place] [address] [place] AMERICADifferential cell count method Nom (Bld)AutoNormalCACMC Healthcare System on above:Order Comment: Specimen Type: BLOOD SPECIMEN [facility] Address: [address] [place], [place] [address]Performed By: #### 57491-5, HSTNT, , 2776-07 #### [facility] CLIA [id number] [address] [place] [address] [place] AMERICAEosinophils (Bld) [#/Vol] 0.08 10*3/uLNormal<0.46[facility] on above:Order Comment: Specimen Type: BLOOD SPECIMEN [facility] Address: [address] [place], [place] [address]Performed By: #### 44422-6, HSTNT, , 2776-07 #### [facility] CLIA [id number] [address] [place] [address] [place] AMERICAEosinophils/100 WBC (Bld)1.3 %NormalFlower Hospital on above:Order Comment: Specimen Type: BLOOD SPECIMEN [facility] Address: [address] [place], [place] [address]Performed By: #### 60028-7, HSTNT, , 2776-07 #### [facility] CLIA [id number] [address] [place] [address] [place] AMERICAErythrocyte distribution width (RBC) [Ratio]13.9 %Vwxrkq78.5-15.0[facility] on above:Order Comment: Specimen Type: BLOOD SPECIMEN [facility] Address: [address] [place], [place] [address]Performed By: #### 84437-4, HSTNT, , 2776-07 #### [facility] CLIA [id number] [address] [place] [address] [place] AMERICAHematocrit (Bld) [Volume fraction]35.1 %Low36.0-46.0[facility] on above:Order Comment: Specimen Type: BLOOD SPECIMEN [facility] Address: [address] [place], [place] [address]Performed By: #### 87835-2, HSTNT, , 2776-07 #### [facility] CLIA [id number] [address] [place] [address] [place] AMERICAHemoglobin (Bld) [Mass/Vol] 12.2 g/pBGnjbqs87.5-15.5[facility] on above:Order Comment: Specimen Type: BLOOD SPECIMEN [facility] Address: [address] [place], [place] [address]Performed By: #### 57945-2, HSTNT, , 2776-07 #### [facility] CLIA [id number] [address] [place] [address] [place] AMERICAImmature granulocytes (Bld) [#/Vol]0.04 10*3/uLNormal<0.10Flower [facility] on above:Order Comment: Specimen Type: BLOOD SPECIMEN [facility] Address: [address] [place], [place] [address]Performed By: #### 95472-7, HSTNT, , 2776-07 #### [facility] CLIA [id number] [address] [place], [place] [address] [place] OF AMERICAImmature granulocytes/100 WBC (Bld)0.7 %NormalFlower [facility] on above:Order Comment: Specimen Type: BLOOD SPECIMEN [facility] Address: [address] [place], [place] [address]Performed By: #### 86315-2, HSTNT, , 2776-07 #### [facility] CLIA [id number] [address] [place] [address] [place] AMERICALymphocytes (Bld) [#/Vol] 1.90 10*3/uLNormal1.00-4.00[facility] on above:Order Comment: Specimen Type: BLOOD SPECIMEN [facility] Address: [address] [place], [place] [address]Performed By: #### 41195-0, HSTNT, , 2776-07 #### [facility] CLIA [id number] [address] [place] [address] [place] AMERICALymphocytes/100 WBC (Bld) 30.9 %[facility] on above:Order Comment: Specimen Type: BLOOD SPECIMEN [facility] Address: [address] [place], [place] [address]Performed By: #### 97691-6, HSTNT, , 2776-07 #### [facility] CLIA [id number] [address] [place] [address] (RBC) [Entitic mass]32.9 jyWycrdt16.0-34.0[facility] on above:Order Comment: Specimen Type: BLOOD SPECIMEN [facility] Address: [address] [place], [place] [address]Performed By: #### 47093-9, HSTNT, , 2776-07 #### [facility] CLIA [id number] [address] [place] [address] (RBC) [Mass/Vol]34.8 g/nVRqskwm01.5-36.0[facility] on above:Order Comment: Specimen Type: BLOOD SPECIMEN [facility] Address: [address] [place], [place] [address]Performed By: #### 92625-9, HSTNT, , 2776-07 #### [facility] CLIA [id number] [address] [place] [address] [place] AMERICAMCV (RBC) [Entitic vol]94.6 dOArqexi64.0-100.0[facility] on above:Order Comment: Specimen Type: BLOOD SPECIMEN [facility] Address: [address] [place], [place] [address]Performed By: #### 01557-1, HSTNT, , 2776-07 #### [facility] CLIA [id number] [address] [place] [address] [place] AMERICAMonocytes (Bld) [#/Vol]0.46 10*3/uLNormal<0.87[facility] on above:Order Comment: Specimen Type: BLOOD SPECIMEN [facility] Address: [address] [place], [place] [address]Performed By: #### 07416-7, HSTNT, , 2776-07 #### [facility] CLIA [id number] [address] [place], [place] [address] [place] AMERICAMonocytes/100 WBC (Bld)7.5 % NormalFlower [facility] on above:Order Comment: Specimen Type: BLOOD SPECIMEN [facility] Address: [address] [place], [place] [address]Performed By: #### 66932-8, HSTNT, , 2776-07 #### [facility] CLIA [id number] [address] [place] [address] [place] AMERICANeutrophils (Bld) [#/Vol] 3.64 10*3/uLNormal1.45-7.50[facility] on above:Order Comment: Specimen Type: BLOOD SPECIMEN [facility] Address: [address] [place], [place] [address]Performed By: #### 78394-8, HSTNT, 69325-8, 2776-1 #### [facility] CLIA [id number] [address] [place] [address] [place] AMERICANeutrophils/100 WBC (Bld) 59.3 %NormalFlower Hospital on above:Order Comment: Specimen Type: BLOOD SPECIMEN [facility] Address: [address] [place], [place] [address]Performed By: #### 09077-8, HSTNT, , 2776- #### [facility] CLIA [id number] [address] [place] [address] [place] AMERICANucleated RBC (Bld) [#/Vol] 10*3/uLNormal<0.01[facility] on above:Order Comment: Specimen Type: BLOOD SPECIMEN [facility] Address: [address] [place], [place] [address]Performed By: #### 57381-1, HSTNT, , 2776- #### [facility] CLIA [id number] [address] [place] [address] [place] AMERICANucleated RBC/100 WBC (Bld) [Ratio]0.0 /100 WBCNormalCACMC Healthcare System on above:Order Comment: Specimen Type: BLOOD SPECIMEN [facility] Address: [address] [place], [place] [address]Performed By: #### 68001-5, HSTNT, , 2776-1 #### [facility] CLIA [id number] [address] [place] [address] [place] AMERICAPlatelet mean volume (Bld) [Entitic vol]9.9 fLNormal9.0-12.7[facility] on above: Order Comment: Specimen Type: BLOOD SPECIMEN [facility] Address: [address] [place], [place] [address]Performed By: #### 08595-9, HSTNT, 12641-2, 2776-1 #### [facility] CLIA [id number] [address] [place] [address] [place] AMERICAPlatelets (Bld) [#/Vol]143 10*3/dNLow503-755LtmdnvrniFlower Hospital on above:Order Comment: Specimen Type: BLOOD SPECIMEN [facility] Address: [address] [place], [place] [address]Performed By: #### 48474-4, HSTNT, , 2776- #### [facility] CLIA [id number] [address] [place] [address] [place] AMERICARBC (Bld) [#/Vol]3.71 10*6/uLLow3.90-5.20[facility] on above:Order Comment: Specimen Type: BLOOD SPECIMEN [facility] Address: [address] [place], [place] [address]Performed By: #### 67307-2, HSTNT, , 2776- #### [facility] CLIA [id number] [address] [place] [address] [place] AMERICAWBC (Bld) [#/Vol]6.14 10*3/uLNormal3.70-11.00[facility] on above:Order Comment: Specimen Type: BLOOD SPECIMEN [facility] Address: [address] [place], [place] [address]Performed By: #### 46506-5, HSTNT, , 2776-1 #### [facility] CLIA [id number] [address] STATES [facility] 65-91-0226KMPVHvcppd TextNoMemorial HospitalCNon 32-37-1879EXFPKYJ ID: [id number] Author: KASSY VERDE APRN.CLINICAL RESEARCH ANALYST Service: General Surgery Author Type: Nurse Practitioner [...] in the PACU and transferred to the [facility] for the remainder of her postoperative [...] mg) Tab Commonly know (more content not included)...NormalK[facility]tering [facility] Magnesium SerPl-mCncon 27-26-4020Yuyuapmqk [Mass/Vol]2.0 mg/dLNormal1.7-2.3 [facility] HamiltonComment on above:Order Comment: Specimen Type: BLOOD SPECIMEN [facility] Address: [address] [place], [place] [address]Performed By: #### 11212-2, 94969-5 #### [facility] CLIA [id number] [address] [place], [place] [address] [place] [address] [place] AMERICAPT EDon 14-13-2363NI EDHNO ID: [id number] Author: NOREEN RODNEY DTR Service: Nutrition Therapy Author Type: Film Casting Operator Type: Patient Education Filed: 07/26/2024 14:04 Note [...] DATE: July 26, 2024 TIME: 2:04 PM PAGER:NormalKettering Health HamiltonPhosphate SerPl-mCncon 69-85-5095Fyyctzmze [Mass/Vol]2.5 mg/dLLow2.7-4.8CTuscarawas Hospital Comment on above:Order Comment: Specimen Type: BLOOD SPECIMEN [facility] Address: [address] [place], [place] [address]Performed By: #### 91636-1, 98739-3 #### [facility] CLIA [id number] [address] [place] [address] [place] AMERICAHIGH SENSITIVITY TROPONIN T on 15-85-4248Bwwdfgft T.cardiac High sensitivity method [Mass/Vol]12 ng/LHigh<12 [facility] HamiltonComment on above:Order Comment: Specimen Type: BLOOD SPECIMEN [facility] Address: [address] [place], [place] [address]Performed By: #### 18295-4, 55187-2 #### [facility] CLIA [id number] [address] [place] [address] [place] AMERICAXR UPPER GI SINGLE CONTRAST on 39-77-1792EA UPPER GI SINGLE CONTRAST* * *Final Report* [...] (min:sec). Air kerma: 38.9 mGy. 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 No dilated bowel in the [...] ESOPHAGEAL TRANSIT, LIKELY RELATED TO POSTOPERATIVE EDEMA. Workplace Trainer And Assessor: PSYCHIATRIC Transcribe Date/Time: Jul 25 2024 10:06A Dictated by : NAHID PACHECO MD This examination was interpreted and the report reviewed and electronically signed by: MARTHA CATALAN MD on Jul 25 2024 10:13AM EST [id number]_IDCSIACNNormalUniversity Hospitals Health System POSTPROC EVALon 26-88-7213DTKL POSTPROC EVALHNO ID: [id number] Author: FLOR SNOW MD Service: ? Author Type: Physician Type: Anesthesia Postprocedure Evaluation Filed: 07/24/2024 15:38 Note Text: POST ANESTHESIA EVALUATION NOTE : 1950 Procedure Summary Date: 07/24/24 Room / Location: [place] [address] / [facility] Anesthesia Start: 1055 Anesthesia [...] July 24, 2024 TIME: 3:38 PM CSN: [id number] PRE-OPon 96-95-4412UUMB PRE-OPHNO ID: [id number] Author: FLOR SNOW MD Service: ? Author Type: Physician Type: Anesthesia Preprocedure Evaluation Filed: 07/24/2024 09:16 Note Text: ANESTHESIOLOGY DAY OF SURGERY NOTE : 1950 Procedure Information Date/Time: 07/24/24 1051 Procedure: LAPAROSCOPIC RPR PARAESOPHAGEAL HERNIA W/O FUNDOPLASTY W/ MESH (Abdomen) Location: MAIN [facility] Surgeons: Xavier Boyd MD [...] and consent discussed: yes. Patient / Responsible Republican agrees to proceed: yes Patient / Surrogate [...] July 24, 2024 TIME: 9:15 AM CSN: [id number] Memorial Hospital OP NOTon 90-23-6385CPJSG OP NOTHNO ID: [id number] Author: YAN MOSER, ? Service: General Surgery Author Type: Physician Type: Brief Op Note Filed: 07/24/2024 14:16 Note Text: BRIEF OPERATIVE / PROCEDURE NOTE LOG ID: [id number] SURGERY/PROCEDURE DATE: 07/24/2024 INCISION/PROCEDURE START TIME: 11:37 AM INCISION CLOSE/PROCEDURE END TIME: 2:12 PM SURGEON(S)/PROCEDURALIST(S) AND AQUATIC BIOLOGIST(S): Surgeons and Role: * Xavier Boyd MD [...] 24, 2024 TIME: 2:15 PM PAGER/CONTACT #: [phone] Health [facility] Campus metabolic 2000 panelon 18-57-5672Pjufe gap [Moles/Vol]15 mmol/LNormal8-15 [facility] on above:Order Comment: Specimen Type: BLOOD SPECIMEN [facility] Address: [address] [place], [place] [address]Performed By: #### 87947-6, HSTNT, , 2776-07 #### [facility] CLIA [id number] [address] [place] [address] [place] AMERICACalcium [Mass/Vol]9.3 mg/dL Normal8.5-10.2[facility] on above:Order Comment: Specimen Type: BLOOD SPECIMEN [facility] Address: [address] [place], [place] [address]Performed By: #### 94324-5, HSTNT, , 2776-07 #### [facility] CLIA [id number] [address] [place] [address] [place] AMERICAChloride [Moles/Vol]105 mmol/LUsfwnz90-324GzxdkivqpFlower Hospital on above:Order Comment: Specimen Type: BLOOD SPECIMEN [facility] Address: [address] [place], [place] [address]Performed By: #### 16949-2, HSTNT, , 2776-07 #### [facility] CLIA [id number] [address] [place] [address] [place] AMERICACO2 [Moles/Vol]21 mmol/LLow 22-30[facility] on above:Order Comment: Specimen Type: BLOOD SPECIMEN [facility] Address: [address] [place], [place] [address]Performed By: #### 85712-7, HSTNT, , 2776-07 #### [facility] CLIA [id number] [address] [place] [address] [place] AMERICACreatinine [Mass/Vol]0.83 mg/dLNormal0.58-0.96[facility] on above:Order Comment: Specimen Type: BLOOD SPECIMEN [facility] Address: [address] [place], [place] [address]Performed By: #### 36796-1, HSTNT, , 2776-07 #### [facility] CLIA [id number] [address] [place] [address] [place] AMERICACreatinine and Glomerular filtration rate.predicted panel (S/P/Bld)75 mL/min/1.73m???Normal>=60[facility] on above:Order Comment: Specimen Type: BLOOD SPECIMEN [facility] Address: [address] [place], [place] [address]Result Comment: Estimated Glomerular Filtration Rate (eGFR) is [...] not accurately reflect actual GFR.Performed By: #### 38853-9, HSTNT, , 2776-07 #### [facility] CLIA [id number] [address] [place] [address] [place] AMERICAGlucose [Mass/Vol]171 mg/dL Hlhj53-60DeaeohhprFlower Hospital on above:Order Comment: Specimen Type: BLOOD SPECIMEN [facility] Address: [address] [place], [place] [address]Result Comment: The [place] Diabetes Association (ADA) provides guidance for cutoff [...] Standards of Medical Care in Diabetes 2016, [place] [employer]. Diabetes Care. 2016.39(Suppl 1).Performed By: #### 20659-7, HSTNT, , 2776-07 #### [facility] CLIA [id number] [address] [place] [address] [place] AMERICAPotassium [Moles/Vol]4.0 mmol/LNormal3.7-5.1[facility] on above:Order Comment: Specimen Type: BLOOD SPECIMEN [facility] Address: [address] [place], [place] [address]Performed By: #### 56054-9, HSTNT, 2776-07 #### [facility] CLIA [id number] [address] [place] [address] [place] AMERICASodium [Moles/Vol]141 mmol/L Ndxtce675-043YsiqooeefFlower Hospital on above:Order Comment: Specimen Type: BLOOD SPECIMEN [facility] Address: [address] [place], [place] [address]Performed By: #### 28853-7, HSTNT, , 2776-07 #### [facility] CLIA [id number] [address] [place] [address] [place] AMERICAUrea nitrogen [Mass/Vol]10 mg/dLNormal7-21[facility] ClevelandComment on above:Order Comment: Specimen Type: BLOOD SPECIMEN [facility] Address: [address] [place], [place] [address]Performed By: #### 71918-6, HSTNT, 14148-2, 2777-1 #### [facility] CLIA [id number] [address] [place] [address] [place] AMERICACB W Auto Differential panel (Bld)on 55-96-5995Hwpooopcn (Bld) [#/Vol]10*3/uLNormal<0.11[facility] on above:Order Comment: Specimen Type: BLOOD SPECIMEN [facility] Address: [address] [place], [place] [address]Performed By: #### 61156-7, 92620-1 #### [facility] CLIA [id number] [address] [place] [address] [place] AMERICABasophils/100 WBC (Bld)0.3 % NormalFlower Hospital on above:Order Comment: Specimen Type: BLOOD SPECIMEN [facility] Address: [address] [place], [place] [address]Performed By: #### 15298-1, 01512-9 #### [facility] CLIA [id number] [address] [place] [address] [place] AMERICADifferential cell count method Nom (Bld)AutoNormalCACMC [facility] System on above:Order Comment: Specimen Type: BLOOD SPECIMEN [facility] Address: [address] [place], [place] [address]Performed By: #### 95354-2, 54311-2 #### [facility] CLIA [id number] [address] [place] [address] [place] AMERICAEosinophils (Bld) [#/Vol] 10*3/uLNormal<0.46[facility] on above:Order Comment: Specimen Type: BLOOD SPECIMEN [facility] Address: [address] [place], [place] [address]Performed By: #### 73752-6, 61586-9 #### [facility] CLIA [id number] [address] [place] [address] [place] AMERICAEosinophils/100 WBC (Bld)0.0 %NormalFlower Hospital on above:Order Comment: Specimen Type: BLOOD SPECIMEN [facility] Address: [address] [place], [place] [address]Performed By: #### 60575-5, 14032-7 #### [facility] CLIA [id number] [address] [place] [address] [place] AMERICAErythrocyte distribution width (RBC) [Ratio]13.9 %Lmuqut97.5-15.0[facility] on above:Order Comment: Specimen Type: BLOOD SPECIMEN [facility] Address: [address] [place], [place] [address]Performed By: #### 57865-3, 24444-2 #### [facility] CLIA [id number] [address] [place] [address] [place] AMERICAHematocrit (Bld) [Volume fraction]38.8 %Qyuxfr49.0-46.0[facility] on above:Order Comment: Specimen Type: BLOOD SPECIMEN [facility] Address: [address] [place], [place] [address]Performed By: #### 83859-5, 93097-4 #### [facility] CLIA [id number] [address] [place] [address] [place] AMERICAHemoglobin (Bld) [Mass/Vol] 13.4 g/xZDgmgig15.5-15.5[facility] on above:Order Comment: Specimen Type: BLOOD SPECIMEN [facility] Address: [address] [place], [place] [address]Performed By: #### 62151-6, 87292-5 #### [facility] CLIA [id number] [address] [place] [address] [place] AMERICAImmature granulocytes (Bld) [#/Vol]10*3/uLNormal<0.10[facility] on above:Order Comment: Specimen Type: BLOOD SPECIMEN [facility] Address: [address] [place], [place] [address]Performed By: #### 19622-4, 84810-6 #### [facility] CLIA [id number] [address] [place] [address] [place] AMERICAImmature granulocytes/100 WBC (Bld)0.3 %NormalFlower Hospital on above:Order Comment: Specimen Type: BLOOD SPECIMEN [facility] Address: [address] [place], [place] [address]Performed By: #### 95345-9, 82012-8 #### [facility] CLIA [id number] [address] [place] [address] [place] AMERICALymphocytes (Bld) [#/Vol] 0.48 10*3/uLLow1.00-4.00[facility] on above:Order Comment: Specimen Type: BLOOD SPECIMEN [facility] Address: [address] [place], [place] [address]Performed By: #### 78813-6, 57743-0 #### [facility] CLIA [id number] [address] [place] [address] [place] AMERICALymphocytes/100 WBC (Bld)6.7 %NormalFlower Hospital on above:Order Comment: Specimen Type: BLOOD SPECIMEN [facility] Address: [address] [place], [place] [address]Performed By: #### 74886-3, 44487-5 #### [facility] CLIA [id number] [address] [place], [place] [address]H (RBC) [Entitic mass]32.5 brCifurf67.0-34.0[facility] on above:Order Comment: Specimen Type: BLOOD SPECIMEN [facility] Address: [address] [place], [place] [address]Performed By: #### 13898-9, 94098-5 #### [facility] CLIA [id number] [address] [place] [address] (RBC) [Mass/Vol]34.5 g/gZLkcmfw08.5-36.0[facility] on above:Order Comment: Specimen Type: BLOOD SPECIMEN [facility] Address: [address] [place], [place] [address]Performed By: #### 71067-4, 64406-2 #### [facility] CLIA [id number] [address] [place] [address] (RBC) [Entitic vol]94.2 wKIhrjgj26.0-100.0[facility] on above:Order Comment: Specimen Type: BLOOD SPECIMEN [facility] Address: [address] [place], [place] [address]Performed By: #### 42614-5, 50899-5 #### [facility] CLIA [id number] [address] [place], [place] [address]Monocytes (Bld) [#/Vol]0.23 10*3/uLNormal<0.87[facility] on above:Order Comment: Specimen Type: BLOOD SPECIMEN [facility] Address: [address] [place], [place] [address]Performed By: #### 00465-5, 69454-5 #### [facility] CLIA [id number] [address] [place] [address] [place] AMERICAMonocytes/100 WBC (Bld)3.2 % NormalFlower Hospital on above:Order Comment: Specimen Type: BLOOD SPECIMEN [facility] Address: [address] [place], [place] [address]Performed By: #### 97768-8, 13599-4 #### [facility] CLIA [id number] [address] [place] [address] [place] AMERICANeutrophils (Bld) [#/Vol] 6.43 10*3/uLNormal1.45-7.50[facility] on above:Order Comment: Specimen Type: BLOOD SPECIMEN [facility] Address: [address] [place], [place] [address]Performed By: #### 74742-6, 85739-2 #### [facility] CLIA [id number] [address] [place] [address] [place] AMERICANeutrophils/100 WBC (Bld) 89.5 %NormalFlower Hospital on above:Order Comment: Specimen Type: BLOOD SPECIMEN [facility] Address: [address] [place], [place] [address]Performed By: #### 78546-8, 06483-5 #### [facility] CLIA [id number] [address] [place] [address] [place] AMERICANucleated RBC (Bld) [#/Vol] 10*3/uLNormal<0.01[facility] on above:Order Comment: Specimen Type: BLOOD SPECIMEN [facility] Address: [address] [place], [place] [address]Performed By: #### 52836-7, 11459-0 #### [facility] CLIA [id number] [address] [place] [address] [place] AMERICANucleated RBC/100 WBC (Bld) [Ratio]0.0 /100 WBCNormalCACMC [facility] on above:Order Comment: Specimen Type: BLOOD SPECIMEN [facility] Address: [address] [place], [place] [address]Performed By: #### 20478-9, 87879-2 #### [facility] CLIA [id number] [address] [place], [place] [address] [place] AMERICAPlatelet mean volume (Bld) [Entitic vol]10.0 fLNormal9.0-12.7[facility] on above: Order Comment: Specimen Type: BLOOD SPECIMEN [facility] Address: [address] [place], [place] [address]Performed By: #### 52783-7, 25933-3 #### [facility] CLIA [id number] [address] [place] [address] [place] AMERICAPlatelets (Bld) [#/Vol]144 10*3/yXHsf695-113HxxtpuuuqFlower Hospital on above:Order Comment: Specimen Type: BLOOD SPECIMEN [facility] Address: [address] [place], [place] [address]Performed By: #### 93952-7, 08730-2 #### [facility] CLIA [id number] [address] [place] [address] [place] AMERICARBC (Bld) [#/Vol]4.12 10*6/uLNormal3.90-5.20[facility] on above:Order Comment: Specimen Type: BLOOD SPECIMEN [facility] Address: [address] [place], [place] [address]Performed By: #### 15264-9, 14039-6 #### [facility] CLIA [id number] [address] [place] [address] [place] AMERICAWBC (Bld) [#/Vol]7.18 10*3/uLNormal3.70-11.00[facility] on above:Order Comment: Specimen Type: BLOOD SPECIMEN [facility] Address: [address] [place], [place] [address]Performed By: #### 63638-6, 01400-2 #### [facility] CLIA [id number] [address] [place] [address] [place] OF AMERICAHIGH SENSITIVITY TROPONIN T on [id number] T.cardiac High sensitivity method [Mass/Vol]8 ng/LNormal <12[facility] HamiltonComment on above:Order Comment: Specimen Type: BLOOD SPECIMEN Ordering Facility: [facility] Address: [address] [place], [place] [address]Performed By: #### 35903-3, HSTNT, 01649-5, 2777-1 #### [facility] [place] [id number] [address] [place] [address] [place] AMERICAMagnesium SerPl-mCncon 99-10-7314Oblrpsmts [Mass/Vol]1.7 mg/dLNormal1.7-2.3CTuscaraw[facility] Comment on above:Order Comment: Specimen Type: BLOOD SPECIMEN Ordering Facility: [facility] Address: [address] [place], [place] [address]Performed By: #### 08430-9, HSTNT, , 2776- #### [facility] [place] [id number] [address] [place] [address] [place] OF AMERICAOPERATIVE NOon 07-24-2024 OPERATIVE NOHNO ID: [id number] Author: XAVIER BOYD MD Service: General Surgery Author Type: Physician Type: Operative Report Filed: 07/24/2024 14:31 Note Text: OPERATIVE/PROCEDURE REPORT LOG ID: [id number] SURGERY/PROCEDURE DATE: 07/24/2024 INCISION/PROCEDURE START TIME: 11:37 AM INCISION CLOSE/PROCEDURE END TIME: 2:12 PM SURGEON(S)/PROCEDURALIST(S) AND AQUATIC BIOLOGIST(S): Surgeons and Role: * Xavier Boyd MD [...] the left and right subcostal regions. An pharmacist assistant 5 mm trocar was placed in [...] sutures to the left upper abdomen. The [place] drain and liver retractor were removed. The [...] required to assist with this case. The pharmacist assistant performed retraction and assisted with exposure. PRE-OP/PRE-PROCEDURE DIAGNOSIS: Type III paraesophageal hernia, symptomatic POST-OP/POST-PROCEDURE DIAGNOSIS: Same as Preop ESTIMATED BLOOD LOSS: 30 mls SPECIMENS: None IMPLANTABLE DEVICES: NONE DRAINS: None COMPLICATIONS: None CLOSURE TECHNIQUE: Primary PARTICIPATION IN SURGERY/PROCEDURE: I/primary surgeon/proceduralist performed the procedure with assistance. SIGNATURE: Xavier Boyd MD PATIENT NAME: Shey Obrien DATE: July 24, 2024 TIME: 2:27 PMNormalKettering Health HamiltonPhosphate SerPl-mCncon 07-24-2024 Phosphate [Mass/Vol]3.6 mg/dLNormal2.7-4.8CTuscarawas HospitalComment on above:Order Comment: Specimen Type: BLOOD SPECIMEN [facility] Address: [address] [place], [place] [address]Performed By: #### 24244-1, HSTNT, 36126-7, 2777-1 #### [facility] CLIA [id number] [address] [place] [address] [place] AMERICAXR CHEST 2V FRONTAL/LATon [...] soft tissues: Unremarkable. IMPRESSION: Large hiatal hernia. Workplace Trainer And Assessor: [employer] Transcribe Date/Time: Jul 24 2024 7:28A Dictated by : JARVIS HUGO MD This examination was interpreted and the report reviewed and electronically signed by: JARVIS HUGO MD on Jul 24 2024 7:30AM EST [id number]^AGFA_IDC^SI^ACNCCFRadiology, Radiologist, MD - 07/24/2024 * * *Final [...] soft tissues: Unremarkable. IMPRESSION: Large hiatal hernia. Workplace Trainer And Assessor: [facility] Transcribe Date/Time: Jul 24 2024 7:28A Dictated by : JARVIS HUGO MD This examination was interpreted and the report reviewed and electronically signed by: JARVIS HUGO MD on Jul 24 2024 7:30AM EST [id number]^AGFA_IDC^SI^ACN NOMS HealthcareXR CHEST 2V FRONTAL/LATOrdered By: Radiologist Radiology on 25-47-8491[facility] Work Phone: cBC W Auto Differential panel (Bld)on 07-23-2024 Basophils (Bld) [#/Vol]0.04 10*3/uLNormal<0.11[facility] on above:Order Comment: Specimen Type: BLOOD SPECIMEN [facility] Address: [address] [place], [place] [address]Performed By: #### 74175-8, 36890-8 #### [facility] CLIA [id number] [address] [place] [address] [place] AMERICABasophils/100 WBC (Bld)0.8 % NormalFlower Hospital on above:Order Comment: Specimen Type: BLOOD SPECIMEN [facility] Address: [address] [place], [place] [address]Performed By: #### 72376-0, 84453-9 #### [facility] CLIA [id number] [address] [place] [address] [place] AMERICADifferential cell count method Nom (Bld)AutoNormalCACMC Healthcare System on above:Order Comment: Specimen Type: BLOOD SPECIMEN [facility] Address: [address] [place], [place] [address]Performed By: #### 36940-7, 20295-3 #### [facility] CLIA [id number] [address] [place] [address] [place] AMERICAEosinophils (Bld) [#/Vol] 0.18 10*3/uLNormal<0.46[facility] on above:Order Comment: Specimen Type: BLOOD SPECIMEN [facility] Address: [address] [place], [place] [address]Performed By: #### 32224-6, 20094-6 #### [facility] CLIA [id number] [address] [place] [address] [place] AMERICAEosinophils/100 WBC (Bld)3.7 %NormalFlower Hospital on above:Order Comment: Specimen Type: BLOOD SPECIMEN [facility] Address: [address] [place], [place] [address]Performed By: #### 23524-7, 60954-6 #### [facility] CLIA [id number] [address] [place] [address] [place] AMERICAErythrocyte distribution width (RBC) [Ratio]13.9 %Bwhssc11.5-15.0[facility] on above:Order Comment: Specimen Type: BLOOD SPECIMEN [facility] Address: [address] [place], [place] [address]Performed By: #### 22104-6, 65613-1 #### [facility] CLIA [id number] [address] [place] [address] [place] AMERICAHematocrit (Bld) [Volume fraction]39.0 %Jtstwv67.0-46.0[facility] on above:Order Comment: Specimen Type: BLOOD SPECIMEN [facility] Address: [address] [place], [place] [address]Performed By: #### 03015-0, 34390-8 #### [facility] CLIA [id number] [address] [place] [address] [place] AMERICAHemoglobin (Bld) [Mass/Vol] 13.4 g/aBFjapis61.5-15.5[facility] on above:Order Comment: Specimen Type: BLOOD SPECIMEN [facility] Address: [address] [place], [place] [address]Performed By: #### 63295-7, 43377-6 #### [facility] CLIA [id number] [address] [place] [address] [place] AMERICAImmature granulocytes (Bld) [#/Vol]10*3/uLNormal<0.10[facility] on above:Order Comment: Specimen Type: BLOOD SPECIMEN [facility] Address: [address] [place], [place] [address]Performed By: #### 43252-0, 88905-6 #### [facility] CLIA [id number] [address] [place] [address] [place] AMERICAImmature granulocytes/100 WBC (Bld)0.4 %NormalFlower Hospital on above:Order Comment: Specimen Type: BLOOD SPECIMEN [facility] Address: [address] [place], [place] [address]Performed By: #### 45365-0, 58817-1 #### [facility] CLIA [id number] [address] [place] [address] [place] AMERICALymphocytes (Bld) [#/Vol] 2.00 10*3/uLNormal1.00-4.00[facility] on above:Order Comment: Specimen Type: BLOOD SPECIMEN [facility] Address: [address] [place], [place] [address]Performed By: #### 19004-4, 33667-1 #### [facility] CLIA [id number] [address] [place] [address] [place] AMERICALymphocytes/100 WBC (Bld) 41.3 %NormalFlower Hospital on above:Order Comment: Specimen Type: BLOOD SPECIMEN [facility] Address: [address] [place], [place] [address]Performed By: #### 93277-8, 70147-8 #### [facility] CLIA [id number] [id number] (RBC) [Entitic mass]32.5 geYyuznn16.0-34.0[facility] on above:Order Comment: Specimen Type: BLOOD SPECIMEN [facility] Address: [address] [place], [place] [address]Performed By: #### 34182-5, 35666-2 #### [facility] CLIA [id number] [address] [place] [address] (RBC) [Mass/Vol]34.4 g/nPXoafke55.5-36.0[facility] on above:Order Comment: Specimen Type: BLOOD SPECIMEN [facility] Address: [address] [place], [place] [address]Performed By: #### 80331-7, 85168-0 #### [facility] CLIA [id number] [address] [place] [address] (RBC) [Entitic vol]94.7 bTHdyaeh69.0-100.0[facility] on above:Order Comment: Specimen Type: BLOOD SPECIMEN [facility] Address: [address] [place], [place] [address]Performed By: #### 83140-0, 26156-0 #### [facility] CLIA [id number] [address] [place] [address] [place] AMERICAMonocytes (Bld) [#/Vol]0.30 10*3/uLNormal<0.87[facility] on above:Order Comment: Specimen Type: BLOOD SPECIMEN [facility] Address: [address] [place], [place] [address]Performed By: #### 68609-4, 88392-6 #### [facility] CLIA [id number] [address] [place] [address] OF AMERICAMonocytes/100 WBC (Bld)6.2 % NormalEden Clinic ClevelandComment on above:Order Comment: Specimen Type: BLOOD SPECIMEN [facility] Address: [address] [place], [place] [address]Performed By: #### 99798-9, 11839-0 #### [facility] CLIA [id number] [address] [place] [address] [place] AMERICANeutrophils (Bld) [#/Vol] 2.30 10*3/uLNormal1.45-7.50[facility] on above:Order Comment: Specimen Type: BLOOD SPECIMEN [facility] Address: [address] [place], [place] [address]Performed By: #### 50520-3, 69860-8 #### [facility] CLIA [id number] [address] [place] [address] [place] AMERICANeutrophils/100 WBC (Bld) 47.6 %[facility] on above:Order Comment: Specimen Type: BLOOD SPECIMEN [facility] Address: [address] [place], [place] [address]Performed By: #### 26148-8, 40374-4 #### [facility] CLIA [id number] [address] [place] [address] [place] AMERICANucleated RBC (Bld) [#/Vol] 10*3/uLNormal<0.01[facility] on above:Order Comment: Specimen Type: BLOOD SPECIMEN [facility] Address: [address] [place], [place] [address]Performed By: #### 75559-6, 34593-0 #### [facility] CLIA [id number] [address] [place] [address] [place] AMERICANucleated RBC/100 WBC (Bld) [Ratio]0.0 /100 WBCNormalCACMC Healthcare System on above:Order Comment: Specimen Type: BLOOD SPECIMEN [facility] Address: [address] [place], [place] [address]Performed By: #### 74570-8, 61792-7 #### [facility] CLIA [id number] [address] [place] [address] [place] AMERICAPlatelet mean volume (Bld) [Entitic vol]10.2 fLNormal9.0-12.7[facility] on above: Order Comment: Specimen Type: BLOOD SPECIMEN [facility] Address: [address] [place], [place] [address]Performed By: #### 87880-8, 61475-7 #### [facility] CLIA [id number] [address] [place] [address] [place] AMERICAPlatelets (Bld) [#/Vol]169 10*3/sIVqsurj150-783LvklbngxlFlower Hospital on above:Order Comment: Specimen Type: BLOOD SPECIMEN [facility] Address: [address] [place], [place] [address]Performed By: #### 26297-3, 68844-9 #### [facility] CLIA [id number] [address] [place] [address] [place] AMERICARBC (Bld) [#/Vol]4.12 10*6/uLNormal3.90-5.20[facility] on above:Order Comment: Specimen Type: BLOOD SPECIMEN [facility] Address: [address] [place], [place] [address]Performed By: #### 79567-0, 59197-3 #### [facility] CLIA [id number] [address] [place] [address] [place] AMERICAWBC (Bld) [#/Vol]4.84 10*3/uLNormal3.70-11.00[facility] on above:Order Comment: Specimen Type: BLOOD SPECIMEN [facility] Address: [address] [address]Performed By: #### 75900-0, 69781-8 #### [facility] CLIA [id number] [address] [facility] DESK Q08LPIPUVYJQJESSICA [place] [id number] [facility] T[facility]CARAWAS HOSPITALCC CBC W AUTO DIFF BLDon 12-13-2378Fvifuzkom/100 WBC (Bld)0.8 %[facility] BASOPHILS # BLD AUTO 0.04NIGibson General Hospital DIFFERENTIAL METHOD BLDAutoNOMS Mercy HospitalF EOSINOPHIL # BLD AUTO0.18NIGibson [facility] Hospital LYMPHOCYTES # BLD [id number] Life Care at St. JosephF MONOCYTES # BLD AUTO0.3NIRegional Hospital of JacksonF NEUTROPHILS # BLD AUTO2.3NOMosaic Life Care at St. JosephF NRBC # BLD AUTO<0.01NIGibson [facility] Hospital NRBC/100 WBC BLD-RTO0/100 WBCCenterPointe Hospital PLATELET # BLD [id number] Life Care at St. JosephF PMV BLD AUTO10.2 fL9.0 - 12.7 fLCenterPointe Hospital WBC # BLD AUTO4.84NOPR HealthcareEosinophils/100 WBC (Bld)3.7 %[facility] HealthcareErythrocyte distribution width (RBC) [Ratio]13.9 %11.5 - 15.0 %[facility] HealthcareHematocrit (Bld) [Volume fraction]39 %36.0 - 46.0 %[facility] HealthcareHemoglobin (Bld) [Mass/Vol]13.4 g/dL 11.5 - 15.5 g/dLPerry County Memorial Hospital GRANULOCYTES # BLD AUTO<0.03NIMaury [facility], [place] GRANULOCYTES/LEUK NFR BLD AUTO0.4 %NOM HealthcareLymphocytes/100 WBC (Bld)41.3 %[facility] CenterMCH (RBC) [Entitic mass]32.5 pg26.0 - 34.0 pgNOFreeman Neosho HospitalMCHC (RBC) [Mass/Vol]34.4 g/dL30.5 - 36.0 g/dLOzarks Medical CenterMCV (RBC) [Entitic vol]94.7 fL80.0 - 100.0 fLNOFreeman Neosho HospitalMonocytes/100 WBC (Bld)6.2 % NOMS HealthcareNeutrophils/100 WBC (Bld)47.6 %NOMS HealthcareRBC (Bld) [#/Vol] 4.12 10*6/uL3.90 - 5.20 m/uLNOMS HealthcareSpecimen Type: BLOOD SPECIMEN [facility] Address: [address] [place] [address] Original Ordering Provider: KATARZYNA DASILVAResearch Medical CenterF CONFIRM BLOOD TYPEon 98-26-7607PUPNCZRH HealthcareSpecimen Type: BLOOD SPECIMEN [facility] Address: [address] [place] [address] [facility] CLIA [id number] [address] [place] [address] TYPE AND SCREEN,30 DAYon 13-67-9191UKNAJMPN HealthcareRh Nom (Bld)PositiveNOPR Healthcare Specimen Type: BLOOD SPECIMEN [facility] Address: [address] [place] [address] [facility] CLIA [id number] [address] [place] [address] CONFIRM BLOOD TYPEon 68-49-3182WIYFSfrihzVibewnjhoCleveland Clinic [facility] on above:Order Comment: Specimen Type: BLOOD SPECIMEN [facility] Address: [address] [place], [place] [address]Performed By: #### 84326-3, HSTNT, , 2776- #### [facility] CLIA [id number] [address] [place], [place] [address]Rh Nom (Bld)PositiveNormal [facility] on above:Order Comment: Specimen Type: BLOOD SPECIMEN [facility] Address: [address] [place], [place] [address]Performed By: #### 59757-4, HSTNT, , 2776- #### [facility] CLIA [id number] [address] [place] [address] OF AMERICAABO group Nom (Bld)B Kettering Healthprehensive metabolic 2000 panelon 64-79-6591Dutainv [Mass/Vol]4.2 g/dLNormal3.9-4.9[facility] on above:Order Comment: Specimen Type: BLOOD SPECIMEN [facility] Address: [address] [place], [place] [address]Performed By: #### 13284-5, 09456-3 #### [facility] CLIA [id number] [address] [place] [address] [place] AMERICAALP [Catalytic activity/Vol] 111 U/HVkkhtn68-283EbyfnticuFlower Hospital on above:Order Comment: Specimen Type: BLOOD SPECIMEN [facility] Address: [address] [place], [place] [address]Performed By: #### 15907-0, 11077-0 #### [facility] CLIA [id number] [address] [place] [address] [place] AMERICAALT [Catalytic activity/Vol] 26 U/LNormal7-38[facility] on above:Order Comment: Specimen Type: BLOOD SPECIMEN [facility] Address: [address] [place], [place] [address]Performed By: #### 79127-4, 14893-0 #### [facility] CLIA [id number] [address] [place] [address] [place] AMERICAAnion gap [Moles/Vol]10 mmol/LNormal8-15[facility] on above:Order Comment: Specimen Type: BLOOD SPECIMEN [facility] Address: [address] [place], [place] [address]Performed By: #### 00150-5, 28246-1 #### [facility] CLIA [id number] [address] [place] [address] [place] AMERICAAST [Catalytic activity/Vol] 28 U/MYovbji29-61NwdiwcwzgFlower Hospital on above:Order Comment: Specimen Type: BLOOD SPECIMEN [facility] Address: [address] [place], [place] [address]Performed By: #### 57587-1, 92588-1 #### [facility] CLIA [id number] [address] [place] [address] [place] AMERICABilirubin [Mass/Vol]0.5 mg/dLNormal0.2-1.3[facility] on above:Order Comment: Specimen Type: BLOOD SPECIMEN [facility] Address: [address] [place], [place] [address]Performed By: #### 00325-8, 09898-1 #### [facility] CLIA [id number] [address] [place] [address] [place] AMERICACalcium [Mass/Vol]9.4 mg/dL Normal8.5-10.2[facility] on above:Order Comment: Specimen Type: BLOOD SPECIMEN [facility] Address: [address] [place], [place] [address]Performed By: #### 65863-0, 32162-7 #### [facility] CLIA [id number] [address] [place] [address] [place] AMERICAChloride [Moles/Vol]108 mmol/POleb31-763HupxoccnhFlower Hospital on above:Order Comment: Specimen Type: BLOOD SPECIMEN [facility] Address: [address] [place], [place] [address]Performed By: #### 22154-5, 18929-8 #### [facility] CLIA [id number] [address] [place] [address] [place] AMERICACO2 [Moles/Vol]23 mmol/L Xtqlna89-32BisqjbfmkFlower Hospital on above:Order Comment: Specimen Type: BLOOD SPECIMEN [facility] Address: [address] [place], [place] [address]Performed By: #### 61130-9, 76242-1 #### [facility] CLIA [id number] [address] [place] [address] [place] AMERICACreatinine [Mass/Vol]0.99 mg/dLHigh0.58-0.96[facility] on above:Order Comment: Specimen Type: BLOOD SPECIMEN [facility] Address: [address] [place], [place] [address]Performed By: #### 61038-1, 33672-5 #### [facility] [place] [id number] [address] [place] [address] [place] AMERICACreatinine and Glomerular filtration rate.predicted panel (S/P/Bld)61 mL/min/1.73m???Normal>=60[facility] on above:Order Comment: Specimen Type: BLOOD SPECIMEN [facility] Address: [address] [place], [place] [address]Result Comment: Estimated Glomerular Filtration Rate (eGFR) is [...] not accurately reflect actual GFR.Performed By: #### 83060-6, 11028-9 #### [facility] CLIA [id number] [address] [place] [address] [place] AMERICAGlucose [Mass/Vol]155 mg/dL Gcev12-89CgqfzpkrvFlower Hospital on above:Order Comment: Specimen Type: BLOOD SPECIMEN [facility] Address: [address] [place], [place] [address]Result Comment: The [place] Diabetes Association (ADA) provides guidance for cutoff [...] Standards of Medical Care in Diabetes 2016, [place] [employer] Association. Diabetes Care. 2016.39(Suppl 1).Performed By: #### 54148-7, 40931-5 #### [facility] CLIA [id number] [address] [place] [address] [place] AMERICAPotassium [Moles/Vol]4.3 mmol/LNormal3.7-5.1[facility] on above:Order Comment: Specimen Type: BLOOD SPECIMEN [facility] Address: [address] [place], [place] [address]Performed By: #### 38990-9, 98650-9 #### [facility] CLIA [id number] [address] [place] [address] [place] AMERICAProtein [Mass/Vol]6.9 g/dL Normal6.3-8.0[facility] on above:Order Comment: Specimen Type: BLOOD SPECIMEN [facility] Address: [address] [place], [place] [address]Performed By: #### 21016-6, 53991-3 #### [facility] CLIA [id number] [address] [place] [address] [place] AMERICASodium [Moles/Vol]141 mmol/L Pjzqzw358-513BkcgrcwqjFlower Hospital on above:Order Comment: Specimen Type: BLOOD SPECIMEN [facility] Address: [address] [place], [place] [address]Performed By: #### 43070-7, 97040-3 #### [facility] CLIA [id number] [address] [place] [address] AMERICAUrea nitrogen [Mass/Vol]13 mg/dLNormal7-21K[facility]tering [facility] HamiltonComdetroit receiving hospital on above:Order Comment: Specimen Type: BLOOD SPECIMEN [facility] Address: [address] [place], [place] [address]Performed By: #### 89844-6, 39296-0 #### [facility] CLIA [id number] [address] [place] [address] OF TUSCARAWAS HOSPITALECG COMPLETEon 13-73-7863NNG COMPLETEVentricular Rate : 66 BPM Atrial Rate : 66 BPM P-R Interval : 158 ms QRS Duration : 78 ms Q-T Interval : 404 ms QTC Calculation(Bazett) : 423 ms Calculated P [place] : 32 degrees Calculated R [place] : 14 degrees Calculated T [place] : 54 degrees NORMAL SINUS RHYTHM NORMAL ECG Confirmed by MD MCCLENDON HEBA ([id number]) on 07/29/2024 12:16:17 PM NAME : SHEY OBRIEN PID : [id number] : 1950 Gender : Female Race : ORD : [id number] Procedure Date : Jul 23 2024 12:08:10 Edit Date : Jul 29 2024 12:16:18 Diagnosis: NORMAL SINUS RHYTHM NORMAL ECG Confirmed by MD MCCLENDON HEBA ([id number]) on 07/29/2024 12:16:17 PM Test Reason : Location : 119 : A17 A17 Overread By : MD MCCLENDON HEBA Edited By : MD MCCLENDON HEBA Referred By : XAVIER BOYD Acquired by : Abel HATuscarawas HospitalHISTORY PHYSICALon 18-49-2492YFLKUJA PHYSICALHNO ID: [id number] Author: JAMIL DELACRUZ PA-C Service: ? Author Type: Physician Calculator Operator Type: H&P Filed: 07/23/2024 14:03 Note [...] angina, anticoagulation therap (more content not included)... NormalSt. Elizabeth Hospitaltory - Blood bankon 01-04-7567Lj Nom (Bld) PositiveOhiohealth O'Bleness HospitalNo Panel Informationon 68-00-8259Knceoqiag ClinicPT panel Coag (PPP)on 27-04-0157FYN Coag (PPP) [Relative time]1.1 {INR}Normal 0.9-1.3[facility] on above:Order Comment: Specimen Type: BLOOD SPECIMEN [facility] Address: [address] [place], [place] [address]Result Comment: Vitamin K Antagonist (VKA) Therapeutic Range: INR 2 to 3 (Target INR of 2.5) Note: For patients treated with VKA drugs, such as warfarin, the [place] [employer] 2012 Guideline recommends [...] Chest 2012, 141:7S-47S Keisha RA, et al. [facility] 2017, 70: 252-289Performed By: #### 23079-2, 52965-4 #### [facility] CLIA [id number] [address] [place], [place] [address]K [address] OF TUSCARAWAS HOSPITALPT Coag (PPP) [Time]11.4 s Normal9.7-13.0[facility] on above:Order Comment: Specimen Type: BLOOD SPECIMEN [facility] Address: [address] [place], [place] [address]Performed By: #### 43411-0, 48516-9 #### [facility] CLIA [id number] [address] [place] [address] [place] AMERICATYPE AND SCREEN,30 DAYon 23-22-5879AYLJGafrmaImpepqogyFlower Hospital on above:Order Comment: Specimen Type: BLOOD SPECIMEN [facility] Address: [address] [place], [place] [address]Performed By: #### 51477-4, HSTNT, , 2776- #### [facility] CLIA [id number] [address] [place], [place] [address] [place] OF AMERICARh Nom (Bld)PositiveNormal [facility] on above:Order Comment: Specimen Type: BLOOD SPECIMEN [facility] Address: [address] [place], [place] [address]Performed By: #### 32797-5, HSTNT, , 2776- #### [facility] [place] [id number] [address] [place] [address] STATES OF AMERICAXR CHEST 2V FRONTAL/LATon 33-43-8657IY CHEST 2V FRONTAL/LAT* * *Final Report* * [...] soft tissues: Unremarkable. IMPRESSION: Large hiatal hernia. Workplace Trainer And Assessor: KODY Transcribe Date/Time: Jul 24 2024 7:28A Dictated by : JARVIS HUGO MD This examination was interpreted and the report reviewed and electronically signed by: JARVIS HUGO MD on Jul 24 2024 7:30AM EST [id number] Hospital [facility] Westiology Study observation (narrative)[facility] HealthcareaPTT PPPon [id number] Coag (PPP) [Time]25.5 kNmqbce48.0-32.4[facility] on above:Order Comment: Specimen Type: BLOOD SPECIMEN Ordering Facility: [facility] Address: [address] [place], [place] [address]Performed By: #### [id number], [id number] #### [facility] CLIA [id number] [address] [place] [address] OF [facility]ITALCNOVon [id number] Visit (GENSERGIO) SHEY OBRIEN ([id number]) 1950 F Date Time Provider Department 04/29/24 11:00 AM XAVIER BOYD During your visit today, we recorded the following information about you: Temperature Pulse Blood pressure Weight 98.5 degrees 90/minute 144/65 98.9 kg Height 1.524 m Diomedes Fiore MA 04/29/2024 11:01 AM Signed What is the reason for your visit today? Consult Who is your referring physician? Dafne Spaers Are you having poor oral intake? YES Have you had unintentional weight loss of 15 lbs/7 Kg in the last 3-6 months? NO Bowels: soft, more frequent Wound: none Temperature: No Drains: No Yan Moser 04/29/2024 12:10 PM Signed [facility] Abdominal Core Health - HISTORY AND [...] Consents obtained Yan Moser MD General Surgery [facility], Xavier Mayfield MD 04/29/2024 12:10 PM Signed [...] the patient and discussed (more content not included)...[facility] Jonah 04-22-[address] [address] Magnetic Resonance Report Signed Patient: SHEY OBRIEN MR#: [id number] : 1950 Acct:[id number] Age/Sex: 73 / F ADM Date: 04/22/24 Loc: MRI Attending Dr: Dimas Arguello M.D. Ordering Physician: Dimas Arguello M.D. Date of Service: 04/22/24 Procedure(s): MR lumbar spine wo con Accession Number(s): [id number] cc: Dimas Arguello M.D.; Latrell Jack M.D. [place] [address] Patient Name: SHEY OBRIEN MRN: [facility]:[id number] date: 1950 Sex: F Assigned Patient Location: MRI Current Patient Location: PM Accession/Order Number: [id number] Exam Date: 04/22/2024 07:45 Report Date: 04/22/2024 [...] mild left foraminal stenosis Electronically authenticated by: WILLRAD ANAND Date: 04/22/2024 13:57 Dictated By: Willard Anand M.D. Signed By: 04/22/241399 DD/ 1357 TD/TT: Workplace Trainer And Assessor:TBHRadiology, Radiologist, MD - 04/22/2024 [place] [address] Magnetic Resonance Report Signed Patient: SHEY OBRIEN MR#: [id number] : 1950 Acct:[id number] Age/Sex: 73 / F ADM Date: 04/22/24 Loc: MRI Attending Dr: Dimas Arguello M.D. Ordering Physician: Dimas Arguello M.D. Date of Service: 04/22/24 Procedure(s): MR lumbar spine wo con Accession Number(s): [id number] cc: Dimas Arguello M.D.; Latrell Jack M.D. [place] [phone] Patient Name: SHEY OBRIEN MRN: [facility]:[id number] date: 1950 Sex: F Assigned Patient Location: MRI Current Patient Location: Accession/Order Number: [id number] Exam Date: 04/22/2024 07:45 Report Date: 04/22/2024 [...] Signed By: 04/22/24 1400 DD/ 135 TD/TT: Workplace Trainer And Assessor: MARIANNE HealthcareRadiology Study observation (narrative)[facility] LUMBAR SPINE WO CONOrdered By: Radiologist Radiology on 93-50-9269TIUT [facility] Work Phone: XR FOOT RT MIN 3Von 14-40-3769FfcDunkerton, [place] [address] XRay Report Signed Patient: SHEY OBRIEN MR#: [id number] : 1950 Acct:[id number] Age/Sex: 73 / F ADM Date: 04/09/24 Loc: EC Attending Dr: Marnie Pemberton D.P.M. Ordering Physician: Marnie Pemberton D.P.M. Date of Service: 04/09/24 Procedure(s): XR foot RT min 3V Accession Number(s): [id number] cc: Marnie Pemberton D.P.M.; Latrell Jack M.D. [address] [address] Patient Name: SHEY OBRIEN MRN: [id number] date: 1950 Sex: F Assigned Patient Location: Current Patient Location: Accession/Order Number: [id number] Exam Date: 04/09/2024 09:34 Report Date: 04/10/2024 [...] Negative. XR/XR foot RT min 3V IMPRESSION: Tclg-pv-bnpnwcjc osteoarthritis Electronically authenticated by: WILLARD ANAND Date: 04/10/2024 07:25 Dictated By: Willard Anand M.D. Signed By: 04/10/24726 DD/ 4 TD/TT: Workplace Trainer And Assessor:LALITAHRadiology, Radiologist, - 04/10/2024 [place] [address] XRay Report Signed Patient: SHEY OBRIEN MR#: [id number] : 1950 Acct:[id number] Age/Sex: 73 / F ADM Date: 04/09/24 Loc: EC Attending Dr: Marnie Pemberton D.P.M. Ordering Physician: Marnie Pemberton D.P.M. Date of Service: 04/09/24 Procedure(s): XR foot RT min 3V Accession Number(s): [id number] cc: Marnie Pemberton D.P.M.; Latrell Jack M.D. [place] [id number] Patient Name: SHEY OBRIEN MRN: [facility]:[id number] date: 1950 Sex: F Assigned Patient Location: Current Patient Location: Accession/Order Number: [id number] Exam Date: 04/09/2024 09:34 Report Date: 04/10/2024 [...] Negative. XR/XR foot RT min 3V IMPRESSION: Bmuz-zd-atrmdwwo osteoarthritis Electronically authenticated by: WILLARD ANAND Date: 04/10/2024 07:25 Dictated By: Willard Anand M.D. Signed By: 04/10/24726 DD/ 4 TD/TT: Workplace Trainer And Assessor: NOMS HealthcareRadiology Study observation (narrative)[facility] HealthcareXR FOOT RT MIN 3VOrdered By: Radiologist Radiology on 78-14-1246OKUZ Healthcare Work Phone: Surgical Pathology Reporton 84-48-9814Eahogb[place] [address]- Surgical Pathology Report Collected Date/Time: 03/20/2024 12:52 EDT Pathologist: Pete Evans MD Received Date/Time: 03/21/2024 08:07 EDT Yovanny OLIVO, Dafne Spears MD, Dafne aVlentin Surgical Pathology Report - 03/26/2024 18:15 EDT [...] is entirely submitted in one cassette. (DC) DC:[facility] Microscopic Description Microscopic examination performed unless gross only specified. The use of one or more reagents in the above tests is regulated as an analyte specific reagent (ASR). The test or tests are ordered following initial H&E microscopic examination. The performance characteristics were determined by the Laboratory of [facility]. They have not been cleared or approved by the US Food and Drug Administration. The FDA has determined that such clearance or approval is not necessary. These tests are used for clinical purposes. They should not be regarded as investigational or for research. Appropriate positive and negative controls are performed and are acceptable. [facility] HospitalComment on above:Performed By: #### [id number] #### Delon [facility] [address], [place] [address]XE Esophaguson 27-68-5159KD EsophagusExam Date/Time: 03/26/2024 10:39 EDT Reason for [...] (Electronic Signature): 03/26/2024 10:53 am Signed by: nAibal Londono MD Transcribed by: NEAL Technologist: DENICE Technical Comments Radiation Dose: Ka,r in mGy = 15.80 DAP = 464.17[facility] HospitalMain OR Intraoperative Recordon 12-29-7666Yifq OR Intraoperative RecordMain OR Intraoperative Record IntraOp Document Type FT Summary Primary Physician: Dafne Spears MD Finalized Date/Time: 03/22/24 14:46:15 Pt. Name: SHEY OBRIEN /Sex: 1950 Female Med Rec #: [id number] Physician: Dafne Spears MD Financial #: [id number] Pt. Type: O Room/Bed: / Admit/Disch: 03/20/24 [...] 3 Case Attendee Mariella JOHNSON, Catalina Ivory RESIDENTIAL SUPPORT WORKER, Dafne Ferguson MD Role Performed MONOTYPE MECHANIC Scrub - Primary Surgeon - Primary Time In 03/20/24 12:44:00 03/20/24 12:44:00 03/20/24 12:44:00 Time Out 03/20/24 12:56:00 03/20/24 12:56:00 03/20/24 12:56:00 Procedure EGD(.) EGD(.) EGD(.) Comments Dr. Spears supervising procedure. Last Modified By: Mynor FORBES, Essence Shirley RN, RN, Kara N 03/22/24 14:45:45 03/20/24 12:56:36 03/20/24 12:56:36 Entry 4 Case Attendee Essence Lopez RN Role Performed Manager Security And Safety - Primary Time In 03/20/24 12:44:00 Time [...] Outcomes Met? Yes Last Modified By: Essence Lopze RN 03/20/24 12:46:53 Post-Care Text: The patient [...] and tissue Entry 1 Skin Integrity Intact, [place], Warm, & Skin Abnormality No Dry Outcomes [...] Position Extended Positioning (more content not included)...Normal Pomerene HospitalDischarge Instructionson 63-64-1389Pysslbcrd InstructionsDischarge Instructions SHEY OBRIEN :1950 Visit Date:03/20/2024 [...] Follow Up with Yovanny OLIVO, SENAIT Sifuentes, [facility] When: Comments: Call for any problems. [...] may get better (more content not included)...NormalFisher University Of Maryland Medical CenterComment on above:Result Comment: Electronically Signed By: Kassy Barker\Date and Time Signed: 03/20/24 13:08 EDTInpatient Patient Summaryon 04-51-5373Uraackugq Patient SummaryInpatient Patient Summary [place] [address] [facility] Clinical Discharge Instructions PERSON INFORMATION Name: SHEY OBRIEN [facility]#:[id number] PHYSICIANS Admitting Physician: Yovanny OLIVO, Dafne Torres [...] day (at bedtime) as needed for sleep. Comment:[facility] HospitalMain OR PACU I Recordon 82-75-9504Xrff OR PACU I RecordMain OR PACU I Record PACU Phase I Document Type FT Summary Primary Physician: Dafne Spears MD Finalized Date/Time: 03/20/24 13:37:02 Pt. Name: SHEY OBRIEN Tamie/Sex: 1950 Female Med Rec #: [id number] Physician: Dafne Spears MD Financial #: [id number] Pt. Type: O Room/Bed: / Admit/Disch: 03/20/24 [...] Signatures Signed By: Kassy Barker I 03/20/24 13:37NoSCCI Hospital LimaMain OR Preoperative Recordon 81-33-7812Bofm OR Preoperative RecordMain OR Preoperative Record Holding Area Document Type FT Summary Primary Physician: Dafne Spears MD Finalized Date/Time: 03/20/24 11:17:32 Pt. Name: KARYNSHEY/Sex: 1950 Female Med Rec #: [id number] Physician: Dafne Spears MD Financial #: [id number] Pt. Type: O Room/Bed: / Admit/Disch: 03/20/24 [...] Signatures Signed By: Essence Lopez RN 03/20/24 11:17NoSCCI Hospital LimaOutpatient Surgery Discharge Instructionon 84-34-9927Bjsmquozcp Surgery Discharge InstructionOutpatient Surgery Discharge Instruction [place] [address] Patient Discharge Instructions PERSON INFORMATION Name: HSEY OBRIEN Date of : 1950 Current Date: [...] you. Thank you for choosing [facility] HERE ARE THE MEDICATION CHANGES THAT [...] for sleep. PATIENT EDUCATION INFORMATION Instructions: Medication Leaflets:[facility] HospitalProceduralon 03-20-2024 ProceduralProcedural Patient: SHEY OBRIEN Age: 73 years Sex: Female : 1950 Associated Diagnoses: None Author: Ganga OLIVO, Daquan Olea Postoperative Information Postoperative disposition: Postoperative disposition: To PACU. Optimetrix number: Optimetrix number [id number]. Anesthetic utilized: General. Health Status Allergies: Allergic [...] Discharge when meets criteria ( To home ).[facility] HospitalProceduralProcedural Patient: SHEY OBRIEN Age: 73 years Sex: [...] All Problems BMI 39.0-39.9,adult / SNOMED CT 853129378 / Confirmed Chronic obstructive pulmonary disease / SNOMED CT 24652143 / Confirmed Dyslipidemia / SNOMED CT 1757781900 / Confirmed Dysphagia / SNOMED CT 67817414 / Confirmed GERD (gastroesophageal reflux disease) / SNOMED CT 674936953 / Confirmed Hiatal hernia / SNOMED CT 549240436 / Confirmed HTN (hypertension) / SNOMED CT 6833075684 / Confirmed Insomnia / SNOMED CT 437118935 / Confirmed Lower extremity edema / SNOMED CT 798928300 / Confirmed Morbid obesity / SNOMED CT 855303628 / Confirmed EDWIN (obstructive sleep apnea) / SNOMED CT 212736975 / Confirmed Screening for malignant neoplasm of colon / SNOMED CT 731119249 / Confirmed Seasonal allergic rhinitis / SNOMED CT 013709926 / Confirmed TIA (transient ischemic attack) / SNOMED CT 245322545 / Confirmed Resolved: At risk for falls / SNOMED CT 160682717 Problem added when Risk for Falls Careplan was initiated. Resolved due to patient discharge. Resolved: Hernia / SNOMED CT 635931234 Resolved: Potential for deficient knowledge of cerebrovascular accident (CVA) / IMO 42700464 problem added based on Stroke Powerplan ordered. Resolved due to patient discharge. Resolved: Sleep apnea / SNOMED CT 132901006, Active Problems (14) BMI 39.0-39.9,adult Chronic obstructive pulmonary disease Dyslipidemia Dysphagia GERD (gastroesophageal reflux disease) Hiatal hernia HTN (hypertension) Insomnia Lower extremity edema Morbid obesity EDWIN (obstructive sleep apnea) Screening for malignant neoplasm of colon Seasonal allergic rhinitis TIA (transient ischemic (more content not included)...[facility] HospitalMR HEAD/BRAIN WO CONon 07-55-0036[place] [address] Magnetic Resonance Report Signed Patient: SHEY OBRIEN MR#: [id number] : 1950 Acct:[id number] Age/Sex: 73 / F ADM Date: 03/15/24 Loc: MRI Attending Dr: Diomedes Fitzgerald D.O. Ordering Physician: Diomedes Fitzgerald D.O. Date of Service: 03/15/24 Procedure(s): MR head/brain wo con Accession Number(s): [id number] cc: Diomedes Fitzgerald D.O.; Latrell Jack M.D. [place] [phone] Patient Name: SHEY OBRIEN MRN: [id number] date: 1950 Sex: F Assigned Patient Location: MRI Current Patient Location: MRI Accession/Order Number: [id number] Exam Date: 03/15/2024 09:50 Report Date: 03/15/2024 [...] Signed By: 03/15/24 1215 DD/ 1212 TD/TT: Workplace Trainer And Assessor:LALITAHRadiology, Radiologist, MD - 03/15/2024 [place] [address] Magnetic Resonance Report Signed Patient: SHEY OBRIEN MR#: [id number] : 1950 Acct:[id number] Age/Sex: 73 / F ADM Date: 03/15/24 Loc: MRI Attending Dr: Diomedes Fitzgerald D.O. Ordering Physician: Diomedes Fitzgerald D.O. Date of Service: 03/15/24 Procedure(s): MR head/brain wo con Accession Number(s): [id number] cc: Diomedes Fitzgerald D.O.; Latrell Jack M.D. [place] [address] Patient Name: SHEY OBRIEN MRN: [facility]:[id number] date: 1950 Sex: F Assigned Patient Location: MRI Current Patient Location: MRI Accession/Order Number: [id number] Exam Date: 03/15/2024 09:50 Report Date: 03/15/2024 [...] Signed By: 03/15/24 1215 DD/ 1212 TD/TT: Workplace Trainer And Assessor: MARIANNE HealthcareRadiology Study observation (narrative)[facility] HEAD/BRAIN WO CONOrdered By: Radiologist Radiology on 93-72-9339XZTT [employer] Work Phone: aLL FOLIC ACIDon 44-31-8354UNUNMX34.60 ng/mL8.60 - 58.90 ng/mLNOMS HealthcareALL THYROID STIM HORMONEon 52-62-7833WOH Qn2.782 m[IU]/LNOMS HealthcareNo Panel Informationon 09-60-0964SUIICDJRFONHW Healthcare Ambulatory Visit Summaryon 63-21-9639Cpnbrlbnix Visit SummaryAmbulatory Visit Summary SHEY OBRIEN :1950 [...] us for your care. [facility] HospitalGastroenterology Office/Clinic Noteon 65-74-1629Axhplymucurooeci Office/Clinic NoteGastroenterology Office/Clinic Note Chief Complaint dysphagia [...] or gangrene) reports she had esophagram in [place] no egd in the past declined surgery [...] virus vaccine, inactivated 05/03/2022 Recorded SARS-CoV-2 (COVID-19) mRNAMUL.ORD!u16733 05/03/2022 Recorded influenza virus vaccine, inactivated 04/12/2021 [...] 05/10/2016 Recorded influenza virus vaccine, inactivated 04/16/[address] Elizabeth Boardman HospitalComment on above:Result Comment: Electronically Signed By: Yovanny OLIVO, Dafne Torres\.br\Date and Time Signed: 02/26/24 09:38 EDTMM TOMOSYNTHESIS SCREENING BIon 50-01-6168CvjDunkerton[place] [address] Mammography Report Signed Patient: SHEY OBRIEN MR#: [id number] : 1950 Acct:[id number] Age/Sex: 73 / F ADM Date: 11/28/23 Loc: MAMMO Attending Dr: Latrell Jack M.D. Ordering Physician: Latrell Jack M.D. Results: Date of Service: 11/28/23 Follow Up: Procedure(s): MM tomosynthesis screening BI Accession Number(s): [id number] cc: Latrell Jack M.D. Patient Name: SHEY OBRIEN MR#: [id number] : 1950 Exam Date: 11/28/2023 Ordering Doctor: [...] at age 46. LOCATION: [facility] BREAST COMPOSITION: The breasts are almost [...] Signed By: 11/28/23 1516 DD/ 1515 TD/TT: Workplace Trainer And Assessor:TBHRadiology, Radiologist, - 11/28/2023 [place] [address] Mammography Report Signed Patient: SHEY OBRIEN MR#: [id number] : 1950 Acct:[id number] Age/Sex: 73 / F ADM Date: 11/28/23 Loc: MAMMO Attending Dr: Latrell Jack M.D. Ordering Physician: Latrell Jack M.D. Results: Date of Service: 11/28/23 Follow Up: Procedure(s): MM tomosynthesis screening BI Accession Number(s): [id number] cc: Latrell Jack M.D. Patient Name: SHEY OBRIEN MR#: [id number] : 1950 Exam Date: 11/28/2023 Ordering Doctor: [...] at age 46. LOCATION: [facility] BREAST COMPOSITION: The breasts are almost [...] Signed By: 11/28/23 1516 DD/ 1515 TD/TT: Workplace Trainer And Assessor: MARIANNE Summa HealthRadiology Study observation (narrative)[facility] TOMOSYNTHESIS SCREENING BIOrdered By: Radiologist Radiology on 77-52-8559DIYL [employer] Work Phone: IntraOperative Documentson 46-92-2781RnkbqKsplvfcyx [id number]#1.00TIFFMercy Health St. Elizabeth Boardman HospitalConsenton 94-93-9411Odlfmxd [id number]#1.00TIFOhioHealth Grady Memorial HospitalDischarge Instructionson 69-45-2450Frhqcfuwr Instructions [id number]#1.00TIFOhioHealth Grady Memorial HospitalMain OR Intraoperative Recordon 11-71-2198Dmxb OR Intraoperative Record IntraOp Document Type FT Summary Primary Physician: Pa WEBB MD Finalized Date/Time: 10/16/23 09:46:21 Pt. Name: SHEY OBRIEN/Sex: 1950 Female Med Rec #: [id number] Physician: Pa WEBB MD Financial #: [id number] Pt. Type: O Room/Bed: / Admit/Disch: 10/13/23 [...] Gross Role Performed Anesthesiologist Surgeon - Primary Manager Security And Safety - Primary Calculator Operator Time In 10/13/23 08:55:00 10/13/23 08:55:00 [...] and tissue Entry 1 Skin Integrity Intact, [place], Warm, and Skin Abnormality No Dry Outcomes [...] By: Remigio Infante RN (more content not included)...[facility] HospitalPostoperative Documentson 63-97-4676Llxdtwnctvwkr Documents [id number]#1.00TIFFNormalPomerene HospitalReminderson 51-66-0024Ippnnmsse From: Nhi Aguirre LPN To: N - Clinical; Sent: 10/16/2023 10:15:48 EDT Show up: 09/11/2033 07:00:00 EST Subject: colonoscopy recall Due Date/Time: 10/12/2033 07:00:00 EDT Reminder/Recall Patient due for screening colonoscopy 10/12/2033.[facility] HospitalColonoscopy Procedure Reporton 14-30-8387Yykylcofoyn Procedure Report Patient: SHEY OBRIEN Age: 73 [...] for screening for malignant neoplasm of rectum (BVO82-GJ Z12.12, Discharge, Medical). Course: Progressing as expected. Recommendations: Repeat colonoscopy:: In 10 years. Follow-up:: if problems/questions. Diet:: Regular diet. Medication resumption:: Continue current medications. Return to activities:: After 24 hours. Education and Follow-up: Counseled: Family.[facility] Comment on above:Other Comment: Missing Attachment - attachment storage system not supported [id number] Can be viewed in source systemMissing Attachment - attachment storage system not supported 9756922 Can be viewed [facility] systemMissing Attachment - attachment storage system not supported 1930686 Can be viewed in source systemMissing Attachment - attachment storage system not supported 6844861 Can be viewed in source systemMissing Attachment - attachment storage system not supported 4967075 Can be viewed in source systemConsent for Treatmenton 56-38-7766Twsdbgl for Treatment [id number]#1.00TIFFNoSCCI Hospital LimaDischarge Instructionson 91-72-8301Fdtbhifog Instructions SHEY OBRIEN :1950 Visit Date:10/13/2023 Inpatient [...] Where: [address], [address] [place] [phone]- Business (1) Medications What How Much When [...] on caring [facility]. Your doctor may also give [...] hours or as instru (more content not included)...[facility] HospitalComment on above:Result Comment: Electronically Signed By: Marcy FORDE, Mariaelena\.maikol\Date and Time Signed: 10/12/2408:33 EDTInpatient Patient Summaryon 95-63-4590Pwohwrkjx Patient Summary [address] [address] [facility] Clinical Discharge Instructions PERSON INFORMATION Name: SHEY OBRIEN PHYSICIANS Admitting Physician: Pa WEBB MD Attending Physician: Pa WEBB MD PCP: GUERO OLIVO, LATRELL Discharge Diagnosis: Encounter for colorectal cancer screening; Encounter for screening for malignant neoplasm of rectum Comment: PATIENT EDUCATION INFORMATION Instructions: Medication Leaflets: Follow up: With: Address: When: Pa WEBB [address] [facility], [address], [place]_ [address] [address] Business (1) , only if [...] day (at bedtime) as needed for sleep. Comment:[facility] HospitalMain OR PACU I Recordon 01-90-5571Avpw OR PACU I RecordPACU Phase I Document Type FT Summary Primary Physician: Pa WEBB MD Finalized Date/Time: 10/13/23 09:54:27 Pt. Name: SHEY OBRIEN /Sex: 1950 Female Med Rec #: [id number] Physician: Pa WEBB MD Financial #: [id number] Pt. Type: O Room/Bed: / Admit/Disch: 10/13/23 [...] appropriate medication(s), safely administered during the perioperativeperiod [facility] Level PACU I FT Entry 1 Start Time 10/13/23 09:17:00 Stop Time 10/13/23 09:47:00 Acuity Level Acuity Level I Last Modified By: Mariaelena Vidal RN 10/13/23 09:54:26 Finalized By: Mariaelena Vidal RN Document Signatures Signed By: Mariaelena Vidal RN 10/13/23 09:54NoSCCI Hospital LimaMain OR Preoperative Recordon 76-20-9731Jaxi OR Preoperative RecordHolding Area Document Type FT Summary Primary Physician: Pa WEBB MD Finalized Date/Time: 10/13/23 08:06:06 Pt. Name: KARYNSHEY/Sex: 1950 Female Med Rec #: [id number] Physician: Pa WEBB MD Financial #: [id number] Pt. Type: O Room/Bed: / Admit/Disch: 10/13/23 [...] Document Signatures Signed By: Trip Domínguez 10/13/23 08:06NormAdena Health SystemMonitor Recordon 72-16-9892Fdvtlgd Record [id number]#1.00TIFFNoSCCI Hospital LimaMonitor [id number]#1.00TIFFNormal Pomerene HospitalOutpatient Surgery Discharge Instructionon 10-13-2023 Outpatient Surgery Discharge Instruction [place] [id number] Patient Discharge Instructions PERSON INFORMATION Name: SHEY [...] Follow up: With: Address: When: Pa WEBB [address] [place] [address] [place], [address], [facility] [address] [place] [address] Business (1) , only if needed Pharmacy Information: You may receive a survey from [email or web address] asking you to rate your care experience. Your feedback is important and will help us understand what we do well and how we can improve the quality of care we provide to you, your loved ones and our community. It?s an honor to serve you. Thank you for choosing [facility] HERE ARE THE MEDICATION CHANGES THAT [...] for sleep. PATIENT EDUCATION INFORMATION Instructions: Medication Leaflets:[facility] HospitalPatient Education - Texton 83-04-9300Rlxhyvf Education - TextColonoscopy Care After Surgery Please read the instructions outlined below and refer to this sheet in the next few weeks. These discharge instructions provide you with general information on caring for yourself [facility]. Your doctor may also give [...] is severe or gets worse throughout the day.[facility] HospitalProgress Note-Physicianon 10-13-2023 Progress Note-PhysicianPatient: SHEY OBRIENN: 30-70-69 Age: 73 years Sex: Female : 1950 Associated Diagnoses: None Author: Shaji Bethea Jr., DO Postoperative Information Postoperative disposition: Postoperative disposition: Home. Optimetrix number: Optimetrix number [id number]. Anesthetic utilized: General. Physical Examination Vital Signs [...] to Ambulatory Surgery Unit, and To home ).[facility] Comment on above:Result Comment: Electronically Signed By: [...] All Problems BMI 39.0-39.9,adult / SNOMED CT 291083652 / Confirmed Chronic obstructive pulmonary disease / SNOMED CT 12639013 / Confirmed Dyslipidemia / SNOMED CT 3777162412 / Confirmed GERD (gastroesophageal reflux disease) / SNOMED CT 654322282 / Confirmed Hiatal hernia / SNOMED CT 560295714 / Confirmed HTN (hypertension) / SNOMED CT 8072104779 / Confirmed Insomnia / SNOMED CT 526200115 / Confirmed Lower extremity edema / SNOMED CT 168792216 / Confirmed Morbid obesity / SNOMED CT 037412022 / Confirmed EDWIN (obstructive sleep apnea) / SNOMED CT 054483466 / Confirmed Screening for malignant neoplasm of colon / SNOMED CT 863073398 / Confirmed Seasonal allergic rhinitis / SNOMED CT 098575912 / Confirmed TIA (transient ischemic attack) / SNOMED CT 658327639 / Confirmed Resolved: At risk for falls / SNOMED CT 956660235 Problem added when Risk for Falls Careplan was initiated. Resolved due to patient discharge. Resolved: Hernia / SNOMED CT 119979639 Resolved: Potential for deficient knowledge of cerebrovascular accident (CVA) / IMO 92454941 problem added based on Stroke Powerplan ordered. Resolved due to patient discharge. Resolved: Sleep apnea / SNOMED CT 804085859 Histories Past Medical History: Resolved Hernia (524998404): Resolved. Sleep apnea (779828282): Resolved. Procedure history: ORIF - Open reduction of fracture of ankle with internal fixation (958898765254063). Meniscal repair (474412336). Tonsillectomy (206770433). Hand tendon repaired (054053325). Social History Social & Psychosocial Habits Alcohol 09/12/2023 Frequency: 1-2 times per year Substance Abuse Comment: denies - 03/03/2021 07:19 - Carolyn Stewart RN 09/12/2023 Risk Assessment: Denies Substance Abuse Tobacco 09/12/2023 Tobacco Use: Former smoker, quit more Smokeless tobacco use: Never Type: Cigarettes . Physical Examination Vital Signs 10/13/2023 8:03 EDT Temperature Temporal Artery 36.3 DegC (more content not included)...[facility] HospitalComment on above: Result Comment: Electronically Signed By: Shaji Bethea Jr., DO\.maikol\Date and Time Signed: 10/13/23 08:04 EDTConsent for Procedure/Surgeryon 47-03-9141Cdjbmlp for Procedure/[id number]#1.00TIFFNormal [facility]omerene HospitalAmbulatory Visit Summaryon 89-11-4453Wlaukrpihv Visit Summary SHEY OBRIEN :1950 Visit Date:09/12/2023 [...] us for your care. [facility] HospitalProvider Letteron 08-25-2023 Provider Letter August 25, 2023 SHE[address]RIEN [address] [place] [id number] : 1950 Dear Ms. Obrien, We have been trying to reach you with no success regarding a referral from Dr Jack. It is important that you return our call upon receiving this letter so that we can set up an appointment for youin either our [place] or [place] office. Also, at the time of your call, please provide us with your current demographic and insurance information. Thank you for your prompt attention to this matter. Sincerely, [facility] General Surgery [phone] Hospital LimaPhysician Referralon 08-15-2023 Physician [id number]#1.00TIFFMer[facility] [address] Boardman HospitalCT LUNG CANCER SCREENINGon 48-01-0341BT LUNG CANCER SCREENINGEXAMINATION: CT LUNG CANCER SCREENING [...] Electronically authenticated by: MEHNAZ SANTIAGO Date: 2022-07-28 15:28[facility] CenterBNPon 19-94-8199Ndjewhsbywd peptide B (Bld) [Mass/Vol]108.0 pg/mLNormal<=900.0The [facility] HospitalComment on above:Performed By: #### BMP, BNP, HSTROPN ####[facility] [address] [place] [address]Dr. Yilan ChangCBC AUTO DIFFon 91-95-3962ZEFY #0.0 103/ulNormal0.0-0.1The [facility] HospitalComment on above:Performed By: #### CBC ####[facility] Moszaixyun[address] [place], [place] [address]Dr.Yilan ChangBasophils/100 WBC (Bld)0.7 %Normal0.2-2.0The [facility] HospitalComment on above:Performed By: #### CBC ####[facility] Kaajbkdunm[address] [place], [place] [address]Dr.Yilan ChangEO #0.1 103/ulNormal0.0-0.7The [facility] HospitalComment on above:Performed By: #### CBC ####[facility] Qslbxrwbii[address] [place], [place] [address]Dr.Yilan ChangEosinophils/100 WBC (Bld)1.4 %Normal 0.9-7.0The [facility] HospitalComment on above:Performed By: #### CBC ####[facility] Dqgkhphufw[address] [place], [place] [address]Dr.Felisa Trujillo Erythrocyte distribution width (RBC) [Ratio]13.2 %Zeqwmp42.0-15.0The [facility] HospitalComment on above:Performed By: #### CBC ####[facility] Uwdqntmsfl[address] [place], [place] [address]Dr.Felisa TrujilloHematocrit (Bld) [Volume fraction]36.6 %Afhmqt21.0-48.0The [place] HospitalComment on above:Performed By: #### CBC ####[facility] Ehvyomrtic[address] [place], [place] [address]Dr.Krystakun TrujilloHemoglobin (Bld) [Mass/Vol]12.7 g/dL Ncehhw22.0-16.0The [facility] HospitalComment on above:Performed By: #### CBC ####[facility] Berqjcozky[address] [place], [place] [address]Dr. Felisa TrujilloIG #0.01 10e3/ulNormal0.00-0.03The [facility] HospitalComment on above: Performed By: #### CBC ####[facility] Qcrdzvpimm[address] [place], [place] [address]Dr.Felisa TrujilloIG %0.2 %Normal0.0-0.5The [facility] HospitalComment on above:Performed By: #### CBC ####[facility] Izuododdte[address] [place], [place] [address]Dr.Felisa TrujilloLYMPH #1.0 103/ulCritically low1.2-3.8The [facility] HospitalComment on above:Performed By: #### CBC ####[facility] Xhuiisdlgv[address] [place], [place] [address]Dr.Krystakun TrujilloLymphocytes/100 WBC (Bld)22.3 %Dctdpx18.5-60.0The [facility] HospitalComment on above:Performed By: #### CBC ####[facility] Slsfkhiihk[address] [place], [place] [address]Dr.Krystakun TrujilloMANUAL DIFF REQ NONormalThe [facility] HospitalComment on above:Performed By: #### CBC ####[facility] [address]ccd[address] [place] [place] [address]Dr. Felisa TrujilloH (RBC) [Entitic mass]31.8 qzKxexcx87.7-34.0[facility] Comment on above:Performed By: #### CBC ####[facility] Nneatfsxpu[address] [place], [place] [address]Dr.Felisa TrujilloMCHC (RBC) [Mass/Vol]34.7 g/dL Gxxdzz97.9-35.2The [facility] HospitalComment on above:Performed By: #### CBC ####[facility] Jeqepvcyvk[address] [place], [place] [address]Dr. Felisa TrujilloMCV (RBC) [Entitic vol]91.7 pTRwjxri73.0-99.0[facility] Comment on above:Performed By: #### CBC ####[facility] Qurryigfdp[address] [place], [place] [address]Dr.Felisa TrujilloMONO #0.5 103/ulNormal0.3-0.8 The [facility] HospitalComment on above:Performed By: #### CBC ####[facility] Xqglxjijwd[address] [place], [place] [address]Dr.Felisa Trujillo Monocytes/100 WBC (Bld)11.7 %Normal1.7-12.0The [facility] HospitalComment on above:Performed By: #### CBC ####[facility] Luejpsiomq[address] [place], [place] [address]Dr.Felisa TrujilloNEUT #2.7 103/ulNormal1.4-6.5The [facility] HospitalComment on above:Performed By: #### CBC ####[facility] Rabocvagmt[address] [place], [place] [address]Dr.Felisa TrujilloNeutrophils/100 WBC (Bld)63.7 %Aseqaz60.0-75.0The [facility] HospitalComment on above:Performed By: #### CBC ####[facility] Lsnqoinsii[address] [place], [place] [address]Dr.Felisa TrujilloPlatelet mean volume (Bld) [Entitic vol]10.2 fLNormal9.5-13.5 The [facility] HospitalComment on above:Performed By: #### CBC ####[facility] [address] [place] [address]Dr.Felisa TrujilloPLT149 103/ulCritically izm634-216Sza [facility] HospitalComment on above:Performed By: #### CBC ####[facility] [address]vuz[address] [place] [address]Dr.Felisa TrujilloRBC3.99 106/ulCritically low4.20-5.40[facility] Comment on above:Performed By: #### CBC ####[facility] [address] [place] [address]Dr.Felisa TrujilloWBC4.3 103/ulNormal4.0-11.0The [facility] HospitalComment on above:Performed By: #### CBC ####[facility] [address]az[address] [place] [address]Dr.Felisa TrujilloCovid-19 PCR (CVDTBH)on 63-40-5447SOMQ-CoV-2 (COVID-19) RNA DUGLAS+probe Ql (Unsp spec)Detected Critically abnormalNOT DETECTEDThe [facility] HospitalComment on above:Result Comment: This test is not yet approved or cleared by the [place] FDA. When there are no FDA-approved or cleared tests available, and other criteria are met, FDA can make tests available under an emergency access mechanism called an Emergency Use Authorization (EUA). The EUA for this test is supported by the Assistant [place] Supervisor of Health and Human Service's declaration [...] longer be used). Performed By: #### CVDTBH ####[facility] [address] [place] [address]Dr. Felisa RonniePROF CHEM 8 (BAS METB)on 02-22-2022 Anion gap [Moles/Vol]14.9 mmol/LNormalThe [facility] on above: Performed By: #### BMP, BNP, HSTROPN ####[facility] [address] [place] [address]Dr. Yilan ChangCalcium [Mass/Vol]8.9 mg/dLNormal 8.5-10.1The [facility] on above:Performed By: #### BMP, BNP, HSTROPN ####[facility] Necynixwh[address] [place], [place] [address]Dr. Yilan ChangChloride [Moles/Vol]104 mmol/TUmiaxf70-856Qio [facility] on above:Performed By: #### BMP, BNP, HSTROPN ####[facility] Serjrymkai[address] [place], [place] [address]Dr. Yilan ChangCO2 [Moles/Vol]24.0 mmol/PJgfurr94.0-32.0[facility] on above: Performed By: #### BMP, BNP, HSTROPN ####[facility] [address]sh[address] [place], [place] [address]Dr. Yilan ChangCreatinine [Mass/Vol]0.98 mg/dL Normal0.55-1.02The [facility] on above:Performed By: #### BMP, BNP, HSTROPN ####[facility] Vjlupqumkn[address] [place], [place] [address]Dr. Yilan ChangEGFR-AF AUSTRIAN>60Normal>=60The [facility] on above:Performed By: #### BMP, BNP, HSTROPN ####[facility] [address]stmejgavm[address] [place], [place] [address]Dr. Yilan ChangEGFR-NON AF SHLJDQBM74 mL/min/1.06w8Frlljtbgng low>=60The [facility] on above:Performed By: #### BMP, BNP, HSTROPN ####[facility] Xeucnpkdev[address] [place], [place] [address]Dr. Yilan ChangGlucose [Mass/Vol]136 mg/dLCritically ifmd56-101Cl[facility]ando HospitalComment on above:Performed By: #### BMP, BNP, HSTROPN ####[facility] [address]zx[address] [place] [address]Dr. Yilan ChangPotassium [Moles/Vol]3.9 mmol/LNormal3.5-5.1The [facility] HospitalComdetroit receiving hospital on above:Performed By: #### BMP, BNP, HSTROPN ####[facility] [address] [place] [address]Dr. Yilan ChangSodium [Moles/Vol]139 mmol/RNtmzyr049-192Hhi [facility] on above: Performed By: #### BMP, BNP, HSTROPN ####[facility] Ur[address]tswidm[address] [place] [address]Dr. Yilan ChangUrea nitrogen [Mass/Vol]14.0 mg/dL Normal7.0-18.0The [facility] on above:Performed By: #### BMP, BNP, HSTROPN ####[facility] [address] [place] [address]Dr. Yilan ChangUrea nitrogen/Creatinine [Mass ratio]14.3 mg/mgNormalThe [facility] on above:Performed By: #### BMP, BNP, HSTROPN ####[facility] [address]prcna[address] [place] [address]Dr. Yilan ChangTROPONIN, HIGH SENSITIVITYon 94-22-0328ZYANHK4.9 pg/mLNormal4.0-51.3 [facility] HospitalComdetroit receiving hospital on above:Result Comment: CUT-OFF POINTS HAVE BEEN ESTABLISHED BASED ON THE FOURTH UNIVERSAL DEFINITIONS OF MYOCARDIAL INFARCTION. THE UPPER REFERENCE LIMIT (URL) OF TROPONIN, DEFINED THE 99TH PERCENTILE OF cTnI DISTRIBUTION IN A REFERENCE POPULATION, HAS BEEN CONFIRMED THE DECISION THRESHOLD FOR MO DIAGNOSIS.Performed By: #### BMP, BNP, HSTROPN ####[facility] [address] [place] [address]Dr. Yilan ChangXR CHEST 1 Von 06-30-5607JF CHEST 1 VEXAMINATION: XR CHEST 1 V [...] Electronically authenticated by: MEHNAZ SANTIAGO Date: 2022-02-22 13:30[facility] CenterMG MAMM SCREEN 3D RONALD CADon 56-62-4870UL MAMM SCREEN 3D RONALD CAD Patient: SHEY OBRIEN Exam Date: 11/11/2021 : 1950 Gender:F Ordering : DR LATRELL JACK . Admission #: [id number] Family : Order #: [id number] CLICK HERE TO VIEW EXAM RADIOLOGY REPORT [...] at age 46. LOCATION: [facility] BREAST COMPOSITION: Almost entirely fatty. FINDINGS: [...] by: Willard Anand MD on 11/11/2021 at 13:04[facility] CenterBNP on 91-63-5963Gfveocqzirj peptide B (Bld) [Mass/Vol]42.0 pg/mLNormal<=900.0The [facility] HospitalComment on above:Performed By: #### HSTROPN, CMP, BNP #### [facility] [address] [address] [address] Felisa Casas AUTO DIFFon 19-39-5270DIGZ #0.1 103/ulNormal0.0-0.1The [facility] HospitalComment on above:Performed By: #### CBC #### [facility] [address] [address] [address] Felisa TrujilloBasophils/100 WBC (Bld)0.8 %Normal0.2-2.0[facility] Comment on above:Performed By: #### CBC #### [facility] [address] [place] [address] Dr. Felisa Bond #0.3 103/ulNormal0.0-0.7The [facility] HospitalComment on above: Performed By: #### CBC #### [facility] [address] [place] [address] Dr. Felisa Kamaraosinophils/100 WBC (Bld)3.9 %Normal0.9-7.0[facility] Comment on above:Performed By: #### CBC #### [facility] [address] [place] [address] Dr. Felisa Kamararythrocyte distribution width (RBC) [Ratio]12.7 %Ktpxyo31.0-15.0 [facility] HospitalComment on above:Performed By: #### CBC #### [facility] [address] [place] [address] Dr. Felisa TrujilloHematocrit (Bld) [Volume fraction]40.2 %Pwmycv04.0-48.0The [facility] HospitalComment on above:Performed By: #### CBC #### [facility] [address] [place] [address] Dr. Felisa TrujilloHemoglobin (Bld) [Mass/Vol]13.6 g/oYFlvxmd68.0-16.0The [facility] HospitalComment on above:Performed By: #### CBC #### [facility] [address] [place] [address] Dr. Felisa Bryant #0.02 10e3/ulNormal0.00-0.03[facility] on above:Performed By: #### CBC #### [facility] [address] [address] [address] Felisa Bryant %0.3 %Normal0.0-0.5[facility] on above: Performed By: #### CBC #### [facility] [address] [address] [address] Felisa Chavez #1.9 103/ulNormal1.2-3.8The [facility] HospitalComdetroit receiving hospital on above:Performed By: #### CBC #### [facility] [address] [place] [address] Dr. Felisa Tiwarihocytes/100 WBC (Bld)30.0 %Pjrfhr94.5-60.0[facility] HospitalComdetroit receiving hospital on above:Performed By: #### CBC #### [facility] [address] [place] [address] Dr. Felisa Early DIFF REQNONormalThe [facility] HospitalComment on above: Performed By: #### CBC #### [facility] [address] [place] [address] Dr. Felisa Mckinney (RBC) [Entitic mass]31.5 xoGxgmvc22.7-34.0[facility] on above:Performed By: #### CBC #### [facility] [address] [place] [address] Dr. Felisa Suarez (RBC) [Mass/Vol]33.8 g/sOOwnjfy92.9-35.2The [facility] Hospitalment on above:Performed By: #### CBC #### [facility] [address] [place] [address] Dr. Felisa Suarez (RBC) [Entitic vol]93.1 qWNndalh60.0-99.0[facility] on above:Performed By: #### CBC #### [facility] [address] [place] [address] Dr. Felisa Carmona #0.6 103/ulNormal0.3-0.8The [facility] HospitalComment on above:Performed By: #### CBC #### [facility] [address] [place] [address] Dr. Felisa Agueroocytes/100 WBC (Bld)8.5 %Normal1.7-12.0[facility] Comment on above:Performed By: #### CBC #### [facility] [address] [place] [address] Dr. Felisa Lira #3.7 103/ulNormal1.4-6.5The [facility] HospitalComment on above:Performed By: #### CBC #### [facility] [address] [place] [address] Dr. Felisa Corriganutrophils/100 WBC (Bld)56.5 %Qsxula71.0-75.0The [facility] HospitalComment on above:Performed By: #### CBC #### [facility] [address] [place] [address] Dr. Felisa Blanklet mean volume (Bld) [Entitic vol]9.9 fLNormal9.5-13.5The [facility] HospitalComment on above:Performed By: #### CBC #### [facility] [address] [place] [address] Dr. Felisa TrujilloPLT193 103/ywLniysm070-621Byy [facility] HospitalComment on above: Performed By: #### CBC #### [facility] [address] [place] [address] Dr. Felisa TrujilloRBC4.32 106/ulNormal4.20-5.40The [facility] HospitalComment on above:Performed By: #### CBC #### [facility] [address] [place] [address] Dr. Felisa TrujilloWBC6.5 103/ulNormal4.0-11.0The [facility] HospitalComment on above: Performed By: #### CBC #### [facility] [address] [place] [address] Dr. Felisa Tucker-19 PCR (CVDTB)on 28-21-1852HTVE-CoV-2 (COVID-19) RNA DUGLAS+probe Ql (Unsp spec)Not detectedNormalNOT DETECTEDThe [facility] Comment on above:Result Comment: When diagnostic [...] for this test is supported by the [place] of Health and Human Service's declaration that [...] longer be used).Performed By: #### CVDTBH #### [facility] [address] [address] [address] Felisa TrujilloLACTATE/LACTIC ACIDon 76-21-4869Kjwrzty [Moles/Vol]1.0 mmol/L Normal0.4-2.0The [facility] HospitalComment on above:Performed By: #### LACT ####[facility] [address] [place] [address]DrMichelle TrujilloPH VENOUS BLOODon 52-90-2472FQP9 ZREJTA58.3 vtFtSnmyue14.0-52.0The [facility] HospitalComment on above:Performed By: #### PHVEN ####[facility] [address] [place] [address]DrMichelle Roberto ChangpH VENOUS 7.431Critically high7.330-7.430The [facility] HospitalComment on above:Performed By: #### PHVEN ####[facility] [address] [place] [place] [address]Dr. Felisa TrujilloPROF 14(COMP METB)on 00-38-0940Uzafptp [Mass/Vol]4.1 g/dLNormal3.4-5.0[facility] HospitalComment on above:Performed By: #### HSTROPN, CMP, BNP ####[facility] [address] [place] [place] [address]Dr. Yilan ChangAlbumin/Globulin [Mass ratio]1.1 {ratio}NormalThe [facility] HospitalComment on above:Performed By: #### HSTROPN, CMP, BNP ####[facility] [address] [place] [address]Dr. Yilan ChangALP [Catalytic activity/Vol]120 U/LCritically hngp99-526Dqu [facility] HospitalComment on above:Performed By: #### HSTROPN, CMP, BNP ####[facility] [address]scxk[address] [place] [address]Dr. Yilan ChangALT [Catalytic activity/Vol]29 U/SDrrtpj12-01Eks [facility] HospitalComment on above: Performed By: #### HSTROPN, CMP, BNP ####[facility] [address] [place], [place] [address]Dr. Yilan ChangAnion gap [Moles/Vol]14.2 mmol/L NormalThe [facility] HospitalComment on above:Performed By: #### HSTROPN, CMP, BNP ####[facility] [address] [place] [address]Dr. Yilan ChangAST [Catalytic activity/Vol]24 U/RXxndxt91-25Ubx [facility] Comment on above:Performed By: #### HSTROPN, CMP, BNP ####[facility] [address]spzng[address] [place] [address]Dr. Yilan ChangBilirubin [Mass/Vol]0.6 mg/dLNormal0.2-1.0The [facility] HospitalComment on above:Performed By: #### HSTROPN, CMP, BNP ####[facility] [address] [place] [address]Dr. Yilan ChangCalcium [Mass/Vol]8.8 mg/dLNormal 8.5-10.1The [facility] HospitalComment on above:Performed By: #### HSTROPN, CMP, BNP ####[facility] [address] [place] [address]Dr. Yilan ChangChloride [Moles/Vol]103 mmol/TLaquge49-353Hzs [facility] Comment on above:Performed By: #### HSTROPN, CMP, BNP ####[facility] [address]zyb[address] [place] [address]Dr. Yilan ChangCO2 [Moles/Vol] 25.3 mmol/EZayurh36.0-32.0The [facility] HospitalComment on above:Performed By: #### HSTROPN, CMP, BNP ####[facility] Sriow[address] [place], [place] [address]Dr. Yilan ChangCreatinine [Mass/Vol]0.86 mg/dLNormal 0.55-1.02The [facility] Hospitalment on above:Performed By: #### HSTROPN, CMP, BNP ####[facility] Rcgilxxb[address] [place], [place] [address]Dr. Yilan ChangEGFR-AF AUSTRIAN>60Normal>=60The [facility] Hospitalment on above: Performed By: #### HSTROPN, CMP, BNP ####[facility] [address] [place], [place] [address]Dr. Yilan ChangEGFR-NON AF AUSTRIAN>60Normal>=60 The [facility] Hospitalment on above:Performed By: #### HSTROPN, CMP, BNP ####[facility] [address] [place] [address]Dr. Yilan ChangGlobulin (S) [Mass/Vol]3.6 g/dLNormalThe [facility] HospitalComment on above:Performed By: #### HSTROPN, CMP, BNP ####[facility] Xnxuxjwmcn[address] [place], [place] [address]Dr. Yilan ChangGlucose [Mass/Vol]90 mg/dL Mbmhjx59-100Xhv [facility] Hospitalment on above:Performed By: #### HSTROPN, CMP, BNP ####[facility] [address]ktfzro[address] [place] [address]Dr. Felisa ChangPotassium [Moles/Vol]3.5 mmol/LNormal3.5-5.1The [facility] HospitalComment on above:Performed By: #### HSTROPN, CMP, BNP ####[facility] [address] [place] [address]Dr. Felisa Trujillo Protein [Mass/Vol]7.7 g/dLNormal6.1-8.2The [facility] HospitalComment on above: Performed By: #### HSTROPN, CMP, BNP ####[facility] [address]mt[address] [place] [address]Dr. Felisa ChangSodium [Moles/Vol]139 mmol/LNormal 136-145The [facility] HospitalComment on above:Performed By: #### HSTROPN, CMP, BNP ####[facility] [address]utyupp[address] [place] [address]Dr. Felisa ChangUrea nitrogen [Mass/Vol]13.0 mg/dLNormal7.0-18.0[facility] Comment on above:Performed By: #### HSTROPN, CMP, BNP ####[facility] [address]exrj[address] [place] [address]Dr. Krystalan ChangUrea nitrogen/Creatinine [Mass ratio]15.1 mg/mgMetroHealth Parma Medical CenterComment on above:Performed By: #### HSTROPN, CMP, BNP ####[facility] [address] [place] [address]Dr. Felisa ChangPROTIMEon 26-85-1374UHR Coag (PPP) [Relative time]0.99 {INR}NormalThe [facility] HospitalComdetroit receiving hospital on above: Performed By: #### PTT, PT #### [facility] [address] [address] [address] Felisa Lake GUIDELINESSEE BELOWMetroHealth Parma Medical CenterComment on above:Result Comment: DESIRED INR: 2.0 - 3.0 CONDITIONS NOT LISTED BELOW 2.5 - 3.5 FOR PROSTHETIC HEART VALVE REPLACEMENT 2.5 - 3.5 RECURRENT THROMBOSIS Performed By: #### PTT, PT #### [facility] [address] [address] [address] Felisa Hummel Coag (PPP) [Time]10.7 sNormal9.0-11.6The [facility] Comment on above:Performed By: #### PTT, PT #### [facility] [address] [address] [address] Felisa Kahn 06-00-8938kXSX Coag (Bld) [Time]25.9 gPywmoy83.3-36.2The [facility] HospitalComment on above:Performed By: #### PTT, PT #### [facility] [address] [place] [address] Dr. Felisa Romo, HIGH SENSITIVITYon 34-88-3617NJXOSK1.7 pg/mLNormal 4.0-51.3The [facility] HospitalComment on above:Result Comment: CUT-OFF POINTS HAVE BEEN ESTABLISHED BASED ON THE FOURTH UNIVERSAL DEFINITIONS OF MYOCARDIAL INFARCTION. THE UPPER REFERENCE LIMIT (URL) OF TROPONIN, DEFINED THE 99TH PERCENTILE OF cTnI DISTRIBUTION IN A REFERENCE POPULATION, HAS BEEN CONFIRMED THE DECISION THRESHOLD FOR MO DIAGNOSIS.Performed By: #### HSTROPN, CMP, BNP #### [facility] [address] [place] [address] Dr. Felisa TrujilloCovid-19 PCR ([facility])on 07-86-5644NRMG-CoV-2 (COVID-19) RNA DUGLAS+probe Ql (Unsp spec)Not detectedNormalNOT DETECTEDThe [facility] Comment on above:Result Comment: This test is not yet approved or cleared by the [place] FDA. When there are no FDA-approved or cleared tests available, and other criteria are met, FDA can make tests available under an emergency access mechanism called an Emergency Use Authorization (EUA). The EUA for this test is supported by the [place] of Health and Human Service's (HHS's) declaration [...] consistent with SARS-CoV-2.Performed By: #### CVDTBH #### [facility] [address] [place], [place] [address] Dr. Felisa TrujilloXR CHEST 2 Von 33-35-0631TS CHEST 2 VEXAMINATION: XR CHEST 2 V [...] Electronically authenticated by: MEHNAZ SANTIAGO Date: 2021-09-02 14:39NoGlenbeigh HospitalLab - AP Resultson 12-59-4861Rgl - AP Results [id number]#1.00OTGTIFFLima City Hospital Pathology Sendout Teston 66-37-0191Ztnxasugv Send Out.See ReportLima City HospitalComment on above:Order Comment: left ring finger , cyst tendon sheath Performed By: #### [id number] ####[facility] (DEFAULT)[address] [place], [place] [address]Mkepfn Summaryon 53-56-0443Tjgalg SummaryCODING DATE: 02/08/2019 [facility] STATUS: Home PAYOR: Medicare MC APC DESCRIPTION 5112 Level 2 Musculoskeletal Procedures ADMIT DX: REASON FOR VISIT DX: M65.342 Trigger finger, left ring finger FINAL DX: PRINCIPAL: M65.342 Trigger finger, left ring finger SECONDARY: M67.442 Ganglion, left hand J44.9 Chronic obstructive pulmonary disease, unspecified PYMT PROC APC STAT DESCRIPTION DOCTOR NAME DATE 96622 5112 J1 Excision of lesion of Daquan [...] By: Cassy Bradley Date Saved: 02/08/2019 11:52 [facility]Cons[facility]son 02-05-2019 Consent [id number]#1.00OTAshtabula County Medical CenterDischarge Instructionson 60-22-4696Utljwtlxo Instructions [id number]#1.00[facility] History and Physicalon 10-10-9038Cwqjhfc and Physical [id number]#1.00OTAshtabula County Medical CenterMAGR Intraoperative Recordon 06-28-3011UICL Intraoperative RecordMAGR Intra-Op Record Summary Primary Physician: Daquan Antunez DO Finalized Date/Time: 02/05/19 07:41:01 Pt. Name: SHEY OBRIEN/Sex: 1950 FEMALE Med Rec #: [id number] Physician: Daquan Antunez DO Financial #: [id number] Pt. Type: D Room/Bed: / Admit/Disch: 02/04/19 [...] Performed Surgeon - Primary Anesthesiologist of Manager Security And Safety Record Time In 02/04/19 15:31:00 02/04/19 15:31:00 02/04/19 15:31:00 Time Out 02/04/19 16:08:00 02/04/19 16:08:00 02/04/19 16:08:00 Procedure Trigger Finger Release Trigger Finger Release Trigger Finger Release Last Modified By: Toshia Plascencia RN, Barbara RN Long, Barbara RN 02/04/19 16:16:05 02/04/19 16:16:05 02/04/19 16:16:05 Entry 4 Entry 5 Case Attendee Paloma Esparza Regina CST Role Performed Scrub Personnel Repair Technician Time In 02/04/19 15:31:00 02/04/19 15:31:00 [...] Modify Pick List 02/05/19 07:38 MHBLONG Modify [facility] List 02/05/19 07:40 MHBLONG Modify [facility]Medication Managementon 45-72-6575Tfrmkrfcnq Management [id number]#1.00[facility] Provider Orderson 08-05-8609Ilvtwoov Orders [id number]#1.00[facility] Anesthesia Noteon 59-29-5179Whsvcrkllb NotePatient: SHEY OBRIEN Age: 68 years Sex: [...] Problems Chronic back pain / SNOMED CT 139236783 / Confirmed Former smoker / SNOMED CT 56419511 / Confirmed GERD (gastroesophageal reflux disease) / SNOMED CT 329153973 / Confirmed Scar tissue / SNOMED CT 763216429 / Confirmed Sleep apnea / SNOMED CT 469171271 / Confirmed Histories Family History: No family history items have been selected or recorded. Procedure history: Tonsillectomy (932154590). Epidural injection of lumbar spine using fluoroscopic guidance (8099709564). Social History Alcohol Assessment Use: Current. Beer, [...] rhythm. Review / Management Laboratory Results Plan [place] [employer] Anesthesiologists#(ASA) physical status classification: Class [...] [Verified on: 02/04/2019 15:44 EDT] Alirio Mcclellan MDLima City HospitalInpatient Patient Summaryon 02-04-2019 [place] [address] Patient Discharge Instructions Name: SHEY OBRIEN : 52 Patient Address: [address] [place] [address] Primary Care Provider: Name: LATRELL JACK After you are discharged if you find you have any questions, please, call [phone] ext [phone] to speak to a nurse. Discharge Diagnosis: Trigger finger Prescription Information: If you have been given a prescription for narcotics, seek immediate medical attention if you have any difficulty breathing or any sudden status changes such as confusion andsleepiness. If you or anyone you know is experiencing suicidal thoughts, mental health, alcohol and/or drug addiction problems; contact the [facility] 30/01 Crisis Hotline -Text 4HGEY to 567807. If you received any narcotics, sedation, or [...] business decisions or sign any legal documents [facility] would like to thank you for allowing us to assist you with your healthcare needs.The following includes patient education materials and information regarding your injury/illness. SHEY OBRIEN has been given the following list of follow-up instructions, prescriptions, andpatient education materials: Follow-up Instructions With: Address: When: Daquan Antunez [address] [facility] [facility], [address] [place], [place] [address] Business (2) 02/12/2019 2:00 PM With: Address: When: LATRELL JACK [facility] [place], [place] [id number] Business (1) Medications During the course of [...] awake -DO NOT lift heavy objects or char puller forcefully with the affected hand -DO NOT [...] or concerns, please call the office at [phone] or go to the emergency room -Follow [...] Centers for Disease Control and Prevention March 2014[facility] MAGR Postoperative Recordon 96-98-5091VEVJ Postoperative RecordMAGR Phase II Record Summary Primary Physician: Daquan Antunez DO Finalized Date/Time: 02/04/19 17:11:50 Pt. Name: SHEY OBRIEN/Sex: 1950 FEMALE Med Rec #: [id number] Physician: Daquan Antunez DO Financial #: [id number] Pt. Type: D Room/Bed: / Admit/Disch: 02/04/19 [...] By: Jamil Garibay RN 02/04/19 17:11[facility] Preoperative Recordon 92-79-8153EWMY Preoperative RecordMA Pre-Op Record Summary Primary Physician: Daquan Antunez DO Finalized Date/Time: 02/04/19 15:37:19 Pt. Name: SHEY OBRIEN NORMAN /Sex: 1950 FEMALE Med Rec #: [id number] Physician: Daquan Antunez DO Financial #: [id number] Pt. Type: D Room/Bed: / Admit/Disch: 02/04/19 [...] Signatures Signed By: Toshia Plascencia RN 02/04/19 15:37Lima City HospitalOperative Report - Surgeon/Physicianon 91-38-3367Tghrefrmh Report - Surgeon/PhysicianProcedure: Release of trigger finger [...] Blunt dissection was carried down towards A1 sihrin. The neurovascular structures were protected with Ragnell retractors. Therewas a cyst on the outside of the A1 shriin slightly ulnar and orientation. This was readily [...] [Verified on: 02/04/2019 16:37 EDT] Daquan Antunez The [facility] HospitalPatient Handouton 02-04-2019 Patient HandoutDRMichelle OHARA POST OPERATIVE INSTRUCTIONS FOR FINGER SURGERY/MALLET FINGER REPAIR SURGEONS WRITTEN INSTRUTCTIONS:' -Keep your hand elevated above your elbow for the first 24 hours after surgery and apply an ice bagat intervals for the first 24 hours -Wiggle the unaffected fingers frequently while awake -DO NOT lift heavy objects or char puller forcefully with the affected hand -DO NOT [...] or concerns, please call the office at [phone] or go to the emergency room -Follow up as scheduledLima City HospitalProgress Note - Nurseon 02-01-2019 Progress Note - NurseSpoke with pt regarding arrival time of 1145 and NPO status. Verbalized understanding. Pt instructed she will need a driver messenger. Verbalized understanding. [Electronically Signed on: 02/01/2019 14:53 EDT] Kika Akers RN [Verified on: 02/01/2019 14:53 EDT] Kika Akers RNShelby Memorial HospitalCoding Summaryon 14-89-9411Isqarp SummaryCODING DATE: 01/29/2019 [facility] STATUS: Home PAYOR: Medicare MC [...] By: Lili Cueto Date Saved: 01/29/2019 01:42 pmNDiley Ridge [facility].Auto Diff 1on 01-28-2019 Auto Stanley %8 %Normal1-12St. [facility] HospitalComment on above:Performed By: #### [id number], [id number] #### [facility] (DEFAULT) [address] [place] [address] 07737Fedu Abs#0.0 f10Bhpfkv4.0-0.2Magrdayton va medical center HospitalComment on above:Performed By: #### [id number], [id number] #### [facility] (DEFAULT) [address] [place] [address] 29729Imydleivn/100 WBC (Bld)0.4 %Normal0.2-2.0[facility] Hospital Comment on above:Performed By: #### [id number], [id number] #### [facility] (DEFAULT) [address] [place] [address] 38296Jbg Abs#0.[address]hts9.0-[address] [facility] HospitalComment on above:Performed By: #### [id number], [id number] #### [facility] (DEFAULT) [address] [place] [address] 34719Kmfiekodkvj/100 WBC (Bld)3.5 %Normal0.9-4.0[facility] HospitalComment on above:Performed By: #### [id number], [id number] #### [facility] (DEFAULT) [address] [place] [address] 51812Fftwzrmxgyw (Bld) [#/Vol]1.6 u92Thbueh9.3-2.9[facility] HospitalComment on above:Performed By: #### [id number], [id number] #### [facility] (DEFAULT) [address] [place] [address] 62083Axhhnukgjbp/100 WBC (Bld)32 %Eosgnm46-18Jizfqgeu Hospital Comment on above:Performed By: #### [id number], [id number] #### [facility] (DEFAULT) [address] [place] [address] 87611Sicx Abs#0.4 k20Mbzyar1.0-0.8[facility] HospitalComment on above:Performed By: #### [id number], [id number] #### [facility] (DEFAULT) [address] [place] [address] 05762Gzdu Abs#2.8 v23Yoipzh2.5-9.2[facility] HospitalComment on above:Performed By: #### [id number], [id number] #### [facility] (DEFAULT) [address] [place] [address] 61079Icfuxnosdzf/100 WBC (Bld)56 %Rcnhnv76-46Xpnlzcrv Hospital Comment on above:Performed By: #### [id number], [id number] #### [facility] (DEFAULT) [address] [place] [address] 51303QFQ w/ Auto Diffon 57-59-3369Igepybcocan distribution width (RBC) [Ratio]13.4 %Fkvzog00.5-15.0[facility] HospitalComment on above: Performed By: #### [id number], [id number] #### [facility] (DEFAULT) [address] [place] [address] 36670Udrquenwei (Bld) [Volume fraction]40.4 %Ibcpjg86.7-40.4 [facility] HospitalComment on above:Performed By: #### [id number], [id number] #### [facility] (DEFAULT) [address] [place] [address] 83299Apekrkwauu (Bld) [Mass/Vol]13.9 g/aJUjbhzr66.3-15.9 [facility] HospitalComment on above:Performed By: #### [id number], [id number] #### [facility] (DEFAULT) [address] [place] [address] 54870Ado Diff?AutoNormalHocking Valley Community Hospital HospitalComment on above: Performed By: #### [id number], [id number] #### [facility] (DEFAULT) [address] [place] [address] 06242MQU (RBC) [Entitic mass]31 tyXqtmnh73-62Zkahzviy Hospital Comment on above:Performed By: #### [id number], [id number] #### [facility] (DEFAULT) [address] [place] [address] 64518ZMHS (RBC) [Mass/Vol]34 g/iPPpqjnk64-94Ogostpew Hospital Comment on above:Performed By: #### [id number], [id number] #### [facility] (DEFAULT) [address] [place] [address] 33982HOC (RBC) [Entitic vol]90 aBLywowe96-239Hjnogwyh Hospital Comment on above:Performed By: #### [id number], [id number] #### [facility] (DEFAULT) [address] [place] [address] 23523Qplxtpzs mean volume (Bld) [Entitic vol]10.3 fLHigh 6.3-10.2MSt. Anthony's HospitalComment on above:Performed By: #### [id number], [id number] #### [facility] (DEFAULT) [address] [place] [address] 48554Tmbvvvfmr (Bld) [#/Vol]199 l31Mninus178-714Eoxhirpm HospitalComment on above:Performed By: #### [id number], [id number] #### [facility] (DEFAULT) [address] [place] [address] 47966IZD (Bld) [#/Vol]4.47 j18Egdvfl0.70-5.30[facility] Comment on above:Performed By: #### [id number], [id number] #### [facility] (DEFAULT) [address] [place] [address] 29609GPY (Bld) [#/Vol]5.1 e28Tnakgm3.5-10.5[facility] Comment on above:Performed By: #### [id number], [id number] #### [facility] ([facility]) [address] [place] [address] Vital Signs Date TimeVital SignValuePerforming NuqhcbslkOokyeqwt87-35-7143 12:46-0400Body qwdwaw375.56 cmLatrell Jack MD Work Phone: 1(878)[address] [place], [place] [address]10-30-2025 12:46-0400 Body mass index (BMI) [Ratio]38.9 kg/m2Latrell Jack MD Work Phone: 1(467)[address] [place], [place] [address]10-30-2025 12:46-0400 Body aapgyk001.96 kgLatrell Jack MD Work Phone: 1(839)[address] [place], [place] [address]10-30-2025 12:46-0400 Diastolic blood ltpkxigc31 mm[Hg]Latrell Jack MD Work Phone: 1(915)[address] [place], [place] [address]10-30-2025 12:46-0400 Heart rate65 /minLatrell Jack MD Work Phone: 1(414)[address] [place], [place] [address]10-30-2025 12:46-0400 Systolic blood rjurebja252 mm[Hg]Latrell Jack MD Work Phone: 1(297)[address] [place], [place] [address]10-21-2025 13:20-0400 Body rzemym476.56 cmLatrell Jack MD Work Phone: 1(979)[address] [place], [place] [address]10-21-2025 13:20-0400 Body mass index (BMI) [Ratio]38.9 kg/m2Latrell Jack MD Work Phone: 1(406)[address] [place], [place] [address]10-21-2025 13:20-0400 Body pubqlwcikve53.1 [degF]Latrell Jack MD Work Phone: 1(267)[address] [place], [place] [address]10-21-2025 13:20-0400 Body ijhaii361.96 kgLatrell Jack MD Work Phone: 1(538)[address] [place], [place] [address]10-21-2025 13:20-0400 Diastolic blood vnufnfsu18 mm[Hg]Latrell Jack MD Work Phone: 1(156)[address]10-21-2025 13:20-0400 Heart rate96 /minLatrell Jack MD Work Phone: 1(847)[address]10-21-2025 13:20-0400 Respiratory rate20 /minLatrell Jack MD Work Phone: 1(611)[address] [place], [place] [address]10-21-2025 13:20-0400 SaO2% (BldA) [Mass fraction]96 %Latrell Jack MD Work Phone: 1(697)[address] [place], [place] 17[address]10-21-2025 13:20-0400 Systolic blood nzywlywe252 mm[Hg]Latrell Jack MD Work Phone: 1(079)[address] [place], [place] 412[address]10-16-2025 11:06-0400 Body uswmmb479.56 cmLatrell Jack MD Work Phone: 1(831)[address] [place], [place] 412[address]10-16-2025 11:06-0400 Body mass index (BMI) [Ratio]39.3 kg/m2Latrell Jack MD Work Phone: 1(202)[address] [place], [place] 412[address]10-16-2025 11:06-0400 Body kgLatrell Jack MD Work Phone: 1(865)[address] [place], [place] 412[address]10-02-2025 11:46-0400 Body .56 cmLatrell Jack MD Work Phone: 1(529)[address] [place], [place] 412[address]10-02-2025 11:46-0400 Body mass index (BMI) [Ratio]39.4 kg/m2Latrell Jack MD Work Phone: 1(488)[address]10-02-2025 11:46-0400 Body lvofktmbfvu79.1 [degF]Latrell Jack MD Work Phone: 1(666)[address] [place], [place] 17[address]10-02-2025 11:46-0400 Body ekwizm066.32 kgLatrell Jack MD Work Phone: 1(676)555-[address] [place], [place] 6892210-02-2025 11:46-0400 Diastolic blood bsjiyopl66 mm[Hg]Latrell Jack MD Work Phone: 1(085)[address]10-02-2025 11:46-0400 Heart cfea101 /minLatrell Jack MD Work Phone: 1(748)[address]10-02-2025 11:46-0400 Respiratory rate24 /minLatrell Jack MD Work Phone: 1(887)[address]10-02-2025 11:46-0400 SaO2% (BldA) [Mass fraction]99 %Latrell Jack MD Work Phone: 1(730)[address]10-02-2025 11:46-0400 Systolic blood vecvgbds559 mm[Hg]Latrell Jack MD Work Phone: 1(755)[address]08-18-2025 11:00-0400 Body aujtoi574 cmLatrell Jack MD Work Phone: [facility] CenterRhcmsswvqj54-92-1958 11:00-0400Body mass index (BMI) [Ratio]40.03 kg/m2Latrell Jack MD Work Phone: [facility] CenterZfbimjgsdz27-77-4511 11:00-0400Body temperature 97.11 [degF]Latrell Jack MD Work Phone: [facility] CenterGsjyjykgpv92-98-1114 11:00-0400Body twiefu661.51 kgLatrell Jack MD Work Phone: [place] [address]Gemelksizq46-32-5501 11:00-0400Diastolic blood mm[Hg]Latrell Jack MD Work Phone: [place] [address]Upbamrkbbv38-02-6024 11:00-0400Heart ipxb487 /min Latrell Jack MD Work Phone: [place] [address]Pzclfavfqv14-15-7222 11:00-0400Respiratory rate22 /minLatrell Jack MD Work Phone: [facility] CenterGrmhvfmuka21-99-9615 11:00-1956GkZ6% (BldA) [Mass fraction]95 %Latrell Jack MD Work Phone: [facility] CenterYpwsrpodla20-74-2335 11:00-0400Systolic blood clkwkbri742 mm[Hg]Latrell Jack MD Work Phone: 1(283)[address] [place], [place] [address]Exctwoprjw36-70-6707 15:56-0400Body evnala834.02 cmLatrell Jack MD Work Phone: 1(098)[address] [place], [place] 4126807-28-2025 15:56-0400 Body mass index (BMI) [Ratio]38.4 kg/m2Latrell Jack MD Work Phone: 1(253)[address] [place], [place] 4126807-28-2025 15:56-0400 Body hvwaam33.42 kgLatrell Jack MD Work Phone: 1(309)[address] [place], [place] 4126807-28-2025 15:56-0400 Diastolic blood orcfrete51 mm[Hg]Latrell Jack MD Work Phone: 1(611)[address] [place], [place] 4126807-28-2025 15:56-0400 Heart rate90 /minLatrell Jack MD Work Phone: 1(092)[address] [place], [place] 4[address]807-28-2025 15:56-0400 SaO2% (BldA) [Mass fraction]92 %Latrell Jack MD Work Phone: 1(586)[address]07-28-2025 15:56-0400 Systolic blood mm[Hg]Latrell Jack MD Work Phone: 1(381)[address]06-09-2025 15:53-0400 Body hxqcomjxbbu26.2 [degF]Latrell Jack MD Work Phone: 1(847)[address]06-09-2025 15:53-0400 Heart rate84 /minLatrell Jack MD Work Phone: 1(103)[address]06-09-2025 15:53-0400 Respiratory rate18 /minLatrell Jack MD Work Phone: 1(048)[address]06-09-2025 15:53-0400 SaO2% (BldA) [Mass fraction]99 %Latrell Jack MD Work Phone: 1(124)[address]06-09-2025 14:15-0400 Diastolic blood xgdtsdxo67 mm[Hg]Latrell Jack MD Work Phone: 1(868)[address]06-09-2025 14:15-0400 Systolic blood wsyrmeqj916 mm[Hg]Latrell Jack MD Work Phone: 1(578)[address]06-09-2025 09:00-0400 Body geduiu138.3 kgLatrell Jack MD Work Phone: 1(611)[address]06-06-2025 14:41-0400 Body pglydb033.02 cmLatrell Jack MD Work Phone: 1(982)[address]05-28-2025 13:39-0400 Body cmLatrell Jack MD Work Phone: [facility] CenterKtqoiqyjre56-45-2602 13:39-0400Body mass index (BMI) [Ratio]38.97 kg/m2Latrell Jack MD Work Phone: [facility] CenterBrxahfncnr53-37-2252 13:39-0400Body temperature 97.3 [degF]Latrell Jack MD Work Phone: [facility] CenterCbcculxhii95-84-6444 13:39-0400Body obuctm30.79 kgLatrell Jack MD Work Phone: [facility] CenterJtolhwetof25-79-3026 13:39-0400Diastolic blood wicrhjxc67 mm[Hg]Latrell Jack MD Work Phone: [facility] CenterBjkufbzbha33-97-0853 13:39-0400Heart rate97 /min Latrell Jack MD Work Phone: [facility] CenterIdeiemsguz53-18-9585 13:39-0400Respiratory rate22 /minLatrell Jack MD Work Phone: [facility] CenterSftppwgdnt42-28-9347 13:39-0407AcI9% (BldA) [Mass fraction]97 %Latrell Jack MD Work Phone: [facility] CenterScxrnitmhy32-98-7839 13:39-0400Systolic blood jfhctgae701 mm[Hg]Latrell Jack MD Work Phone: [facility] CenterOsgrrrkzen12-61-1465 10:25-0500Body fcidmo405 cm Latrell Jack MD Work Phone: 1(982)370-[address] [place], [place] [address]Wiwwcttpwo99-74-6829 10:25-0500Body mass index (BMI) [Ratio]36.14 kg/m2Latrell Jack MD Work Phone: [facility] CenterZrasmxxrbl54-07-5464 10:25-0500Body temperature 95.9 [degF]Latrell Jack MD Work Phone: [facility] CenterUlzxyhuyvm89-06-7150 10:25-0500Body qnoueq63.53 kgLatrell Jack MD Work Phone: [facility] CenterLtwgztazst21-01-5150 10:25-0500Diastolic blood eiyxfrfo96 mm[Hg]Latrell Jack MD Work Phone: [facility] CenterFnizykpbbc07-03-2823 10:25-0500Heart rate50 /min Latrell Jack MD Work Phone: [facility] CenterQspdsahlbu53-59-4113 10:25-0500Respiratory rate22 /minLatrell Jack MD Work Phone: [facility] CenterGegbazwobo33-85-9057 10:25-5201YdN9% (BldA) [Mass fraction]97 %Latrell Jack MD Work Phone: [facility] CenterIgmpnfpvko51-25-1357 10:25-0500Systolic blood mm[Hg]Latrell Jack MD Work Phone: [facility] CenterQxbzgruenc94-41-7127 14:04-0500Body sgzgow323.6 cmMay[facility] STEAK SAUCE MAKER.CLINICAL RESEARCH ANALYST Work Phone: [phone]01-29-2025 14:04-0500Body mass index (BMI) [Ratio]34.84 kg/u4IrpcpkobMayers Memorial Hospital District STEAK SAUCE MAKER.CLINICAL RESEARCH ANALYST Work Phone: [phone]01-29-2025 14:04-0500Body temperature 97.59 [degF][facility] STEAK SAUCE MAKER.CLINICAL RESEARCH ANALYST Work Phone: [phone]01-29-2025 14:04-0500Body ewmwvf57.08 kgMayers Memorial Hospital District STEAK SAUCE MAKER.CLINICAL RESEARCH ANALYST Work Phone: [phone]01-29-2025 14:04-0500Diastolic blood ituyqgnl58 mm[Hg][facility] STEAK SAUCE MAKER.CLINICAL RESEARCH ANALYST Work Phone: [phone]01-29-2025 14:04-0500Heart rate75 /min [facility] STEAK SAUCE MAKER.CLINICAL RESEARCH ANALYST Work Phone: [phone]01-29-2025 14:04-0500Systolic blood oguyhshj033 mm[Hg][facility] STEAK SAUCE MAKER.CLINICAL RESEARCH ANALYST Work Phone: [phone]01-14-2025 12:49-0500Body giejqg139 cm [facility] 5 Work Phone: [phone]01-14-2025 12:49-0500Body mass index (BMI) [Ratio]37.45 kg/m2[facility] 5 Work Phone: [phone]01-14-2025 12:49-0500Body temperature 98.01 [degF]Pac 5 Work Phone: [phone]01-14-2025 12:49-0500Body uwvkze22.9 kgPacc 5 Work Phone: [phone]01-14-2025 12:49-0500Diastolic blood bsfnevje10 mm[Hg]Pac 5 Work Phone: [facility]01-14-2025 12:49-0500Heart rate77 /min Pacc 5 Work Phone: [facility]01-14-2025 12:49-0500Respiratory rate 20 /minPacc 5 Work Phone: [facility]01-14-2025 12:49-5107MaM0% (BldA) [Mass fraction]99 %Pacc 5 Work Phone: [facility]01-14-2025 12:49-0500Systolic blood oviiqcbf429 mm[Hg]Pacc 5 Work Phone: [facility]11-21-2024 15:36-0500Body cm Sandra Arcos STRATEGY MANAGER [facility] Phone[id number] 15:36-0500Body mass index (BMI) [Ratio]38.26 kg/p8LaokjfSandra Arcos STRATEGY MANAGER Work Phone: [place] [id number] 15:36-0500Body gjcqaw62.98 kgSandra Arcos STRATEGY MANAGER Work Phone: [place] [id number] 15:36-0500Diastolic blood wmqfifji67 mm[Hg]Sandra Arcos STRATEGY MANAGER Work Phone: [place] [id number] 15:36-0500Systolic blood ahgnjexf403 mm[Hg]Sandra Arcos STRATEGY MANAGER Work Phone: [place] [id number] 10:02-0500Body cm Latrell Jack MD Work Phone: [place] [id number] 10:02-0500Body mass index (BMI) [Ratio]38.26 kg/m2Latrell Jack MD Work Phone: [facility] CenterTqxregbsyb07-23-7631 10:02-0500Body temperature 97.11 [degF]Latrell Jack MD Work Phone: [place] [address]Ycltktsldq69-00-8111 10:02-0500Body zxkmqo58.98 kgLatrell Jack MD Work Phone: [facility] CenterKfnbueedrf25-93-2603 10:02-0500Diastolic blood nizlifto27 mm[Hg]Latrell Jack MD Work Phone: [facility] CenterWwjwfotzpi04-78-9190 10:02-0500Heart rate78 /min Latrell Jack MD Work Phone: [place] [address]Kacnvyiuvg71-82-6007 10:02-0500Respiratory rate22 /minLatrell Jack MD Work Phone: [place] [address]Lnrlmjisfs54-51-5864 10:02-6891KgZ9% (BldA) [Mass fraction]97 %Latrell Jack MD Work Phone: [facility] CenterYamuirlqfy36-88-3712 10:02-0500Systolic blood gokhvkdk389 mm[Hg]Latrell Jack MD Work Phone: [facility] CenterIwxrfpmzzv28-11-7299 10:55-0400Body .4 Marco A Boyd MD Work Phone: [facility] RehabilitationIkacsd72-48-5587 10:55-0400Body mass index (BMI) [Ratio]42.58 kg/q1WgwpuXavier Boyd MD Work Phone: [place] Rresrc85-36-9665 10:55-0400Body temperature 98.49 [degF]Xavier Boyd MD Work Phone: [facility]and Fdabrg04-19-2776 10:55-0400Body qtscwe03.88 kgXavier Boyd MD Work Phone: [place] Cfzbqf58-40-9352 10:55-0400Diastolic blood wgmreaam61 mm[Hg]Xavier Boyd MD Work Phone: [place] Ljvpnp23-05-5785 10:55-0400Heart rate90 /min Xavier Boyd MD Work Phone: [place] Guclog32-32-7289 10:55-0400Systolic blood mhiluogq147 mm[Hg]Xavier Boyd MD Work Phone: cC[facility] for RehabilitationPsbaag60-61-2287 13:23-0400Diastolic blood vzkisfzp41 mm[Hg]Wilson Sarmini [address] [place], [place] 9009509-11-2024 13:23-0400Heart rate66 /minMuhammad Sarmini [address] [place], [place] 9009509-11-2024 13:23-0400Mean blood ckaofzgi629 mm[Hg]Wilson Sarmini [address] [place], [place] 9009509-11-2024 13:23-0400 Respiratory rate15 /minMuhammad Sarmini [address] [place], [place] 9009509-11-2024 13:23-4372FxV5% (BldA) [Mass fraction]94 %Wilson Sarmini [address] [place], [place] 9009509-11-2024 13:23-0400 Systolic blood mm[Hg]Wilson Sarmini [address] [place], [place] 9009509-11-2024 13:15-0400 Diastolic blood roarqmej35 mm[Hg]Wilson Sarmini [address] [place], [place] 9009509-11-2024 13:15-0400Heart rate64 /minMuhammad Sarmini [address] [place], [place] 9009509-11-2024 13:15-0400Mean blood jjrnfifr825 mm[Hg]Wilson Sarmini [address] [place], [place] 9009509-11-2024 13:15-0400 Respiratory rate13 /minMuhammad Sarmini [address] [place], [place] 9009509-11-2024 13:15-1189RqI8% (BldA) [Mass fraction]96 %Wilson Sarmini [facility]09-11-2024 13:15-0400 Systolic blood jxlfiufb899 mm[Hg]Wilson Sarmini [facility]09-11-2024 13:05-0400 Diastolic blood zajvvlrs64 mm[Hg]Wilson Sarmini [address] [place], [place] 9009509-11-2024 13:05-0400Heart rate64 /minMuhammad Sarmini [address] [place], [place] 9009509-11-2024 13:05-0400Mean blood bigbpqyq96 mm[Hg]Wilson Sarmini [facility]09-11-2024 13:05-0400 Respiratory rate12 /minMuhammad Sarmini [address] [place], [place] 9009509-11-2024 13:05-0964WuZ2% (BldA) [Mass fraction]96 %Wilson Sarmini [facility]09-11-2024 13:05-0400 Systolic blood yncsdyjm893 mm[Hg]Wilson Sarmini [facility]09-11-2024 12:58-0400Body .16 [degF]Wilson Sarmini [address] [place], [place] 9009509-11-2024 12:50-0400 Respiratory rate15 /minMuhammad Sarmini [address] [place], [place] [address]509-11-2024 12:45-0400 Respiratory rate18 /minMuhammad Sarmini [facility]09-11-2024 11:14-0400Blood Pressure LocationMuhammad Sarmini [facility]09-11-2024 11:14-0400Body iemygvxhxec38.7 [degF]Wilson Sarmini [facility]09-11-2024 11:14-0400 Respiratory rate18 /minMuhammad Sarmini [facility]08-29-2024 11:21-0400Body qgoyco615 cmNicole Amilcar DO Work Phone: [facility] CenterJyncyhdtth39-99-3233 11:21-0400Body mass index (BMI) [Ratio]44.46 kg/e0Jybenf Amilcar DO Work Phone: [facility] CenterUvpxxmgaov86-48-2670 11:21-040Body usfnhm315.85 kgNicole Amilcar DO Work Phone: [facility] CenterVkwaidnxge28-16-6802 11:21-0400Diastolic blood ipygjddq28 mm[Hg]Diomedes Amilcar DO Work Phone: [facility] CenterEhdpyeltuu59-85-0066 11:21-0400Heart rate84 /min Diomedes Amilcar DO Work Phone: [place] [address]Krvldjxohm06-98-9430 11:21-6468XyQ9% (BldA) [Mass fraction]94 %Diomedes Amilcar DO Work Phone: [facility] CenterAsoxpzkuhl33-80-4292 11:21-0400Systolic blood hnmidvjs137 mm[Hg]Diomedes Amilcar DO Work Phone: [place] [address]Obknzykgge19-46-0552 09:12-0400Blood Pressure LocationMuhammad Sarmini 484-1958Bavvwx-PdvqoC[facility]ive Hduvgv58-33-8541 09:12-0400Diastolic blood xdyopmdz69 mm[Hg]Wilson Sarmini 451-6581Uqjcnj-YflwpCleveland [facility] Ehlicr34-39-6042 09:12-0400Heart rate66 /minMuhammad Sarmini 909-0215Xsabil-SudjoPremier Health08-19-2024 09:12-0400Respiratory rate16 /minMuhamserenad Ameyamini 572-3516Zknkfu-DagbjPremier Health08-19-2024 09:12-0400Systolic blood epnelvxa310 mm[Hg]Dafne Houmini 502-5289Lfvmgh-YidtkPremier Health04-05-2024 09:42-0400Diastolic blood fcfatdct86 mm[Hg]Pa NILL [facility]04-05-2024 09:42-0400Heart rate69 /minMichael NILL [facility]04-05-2024 09:42-0400Mean blood peqfuogk903 mm[Hg]Pa NILL [facility]04-05-2024 09:42-0400 Respiratory rate15 /minMichael NILL [facility]04-05-2024 09:42-1272VdS7% (BldA) [Mass fraction]97 %Pa NILL [facility]04-05-2024 09:42-0400 Systolic blood einawebz207 mm[Hg]Pa NILL [facility]04-05-2024 09:32-0400 Diastolic blood vvqxutjh12 mm[Hg]Pa NILL [facility]04-05-2024 09:32-0400Heart rate67 /minMichael NILL [facility]04-05-2024 09:32-0400Mean blood viuajpwg22 mm[Hg]Pa NILL [facility]04-05-2024 09:32-0400 Respiratory rate20 /minMichael NILL [facility]04-05-2024 09:32-4653YxC8% (BldA) [Mass fraction]95 %Pa PALMERL [facility]04-05-2024 09:32-0400 Systolic blood upyoikje257 mm[Hg]Pa NILL [facility]04-05-2024 09:27-0400 Diastolic blood zmxzpiin57 mm[Hg]Pa PALMERL [facility]04-05-2024 09:27-0400Heart rate70 /minMichael NILL [facility]04-05-2024 09:27-0400Mean blood ljqwarwk72 mm[Hg]Pa PALMERL [facility]04-05-2024 09:27-0400 Respiratory rate15 /minMichael NILL [facility]04-05-2024 09:27-3562NxF3% (BldA) [Mass fraction]96 %Pa PALMERL [facility]04-05-2024 09:27-0400 Systolic blood poqevgxc744 mm[Hg]Pa PALMERL [facility]04-05-2024 09:17-0400Body fyegaxftuep27.16 [degF]Pa NILL [facility]04-05-2024 09:10-0400 Respiratory rate16 /minMichael NILL [facility]04-05-2024 09:05-0400 Respiratory rate16 /minMichael NILL [facility]04-05-2024 08:03-0400Body khotqqcytuq52.34 [degF]Pa PALMEREmily [facility]02-02-2024 09:53-0500Body xeqwsc739 cmLatrell Jack MD Work Phone: [facility] CenterQxwmgvsbzi87-47-9752 09:53-0500Body mass index (BMI) [Ratio]40.39 kg/m2Latrell Jack MD Work Phone: [facility] CenterZftlgqitqi22-76-5233 09:53-0500Body temperature 97.11 [degF]Latrell Jack MD Work Phone: noFre[facility] HospitalLfwbabflnu07-18-6859 09:53-0500Body .42 kgLatrell Jack MD Work Phone: noFre[facility] HospitalCbceaxtezw59-73-6652 09:53-0500Diastolic blood rpgwjbgi27 mm[Hg]Latrell Jack MD Work Phone: [facility] CenterBwxvndaqqd51-25-6509 09:53-0500Heart rate94 /min Latrell Jack MD Work Phone: noFre[facility] HospitalOrupkokueq74-49-0384 09:53-8801EbV8% (BldA) [Mass fraction]97 %Latrell Jack MD Work Phone: noFre[facility] Neosho HospitalPtgrvgngng10-70-6463 09:53-0500Systolic blood svgejcbf352 mm[Hg]Latrell Jack MD Work Phone: noPR Healthcare Encounters Encounter DateEncounter TypeCare ProviderFacilityStart: 05-08-2025 End: 40-38-9105ougqxeqgirKmhb Naderer MD Work Phone: -[facility] [place]vueStart: 05-08-2025 End: 76-66-4676Wxubzxt encounter Monique Palacio [employer]-[facility] [place] Work Phone: Start: 04-29-2025 End: 66-77-3158dteqmzxjzsOska Naderer MD Work Phone: -[facility] [place]Start: 04-29-2025 End: 19-92-8600Wviwbfk encounter procedureLatrell Jack [facility]DO[facility] [place] Work Phone: Start: 04-28-2025 End: 84-31-8054fjvkpijuvxDrxqfny Vytautas Giedraitis MDFacility:PM [place] Start: 04-24-2025 End: 81-62-5161cvawpodqmeMpca Naderer MD Work Phone: [facility] Work Phone: Start: 04-24-2025 End: 77-44-8829Dwcowts encounter procedureElmer Suh [facility] [place] Work Phone: Start: 92-36-5046Pwwgahpxyt Alfredito Kim [facility] CredibleStart: 07-51-5978tunysaaprnVzresznsgsx Abdelaziz [facility]: 04-23-2025 End: 88-10-1508ekmzlrrobcXMCHCNLE MILESFacility:[facility] Systemtart: 04-10-2025 End: 75-84-9942zsjhtbgsidUlhq Naderer MD Work Phone: [facility] Work Phone: Start: 04-10-2025 End: 61-46-1598Jgyjpuw encounter procedureLatrell Jack MDDO[facility] [place] Work Phone: Start: 03-04-2025 End: 17-33-7469Tuajjbzgk Result EncounterLatrell Jack MD Work Phone: noms External Department UnsolicitedStart: 03-04-2025 End: 80-03-9881Dsyemhnal Result EncounterLatrell Jack MD Work Phone: noms External Department UnsolicitedStart: 02-27-2025 End: 67-92-6211Yihmapcex Result EncounterLatrell Jack MD Work Phone: noms External Department UnsolicitedStart: 02-27-2025 End: 68-82-0885Jotlrrhrg Result EncounterLatrell Jack MD Work Phone: noms External Department UnsolicitedStart: 02-24-2025 End: 18-60-0134Xjevbo flowsRonald Jack MD Work Phone: noms CWM FMStart: 02-24-2025 End: 08-36-4588Skfmoq flowsRonald Jack MD Work Phone: noms CWM FMStart: 02-24-2025 End: 87-12-9826Afzraa outpatient visit 25 minutesLatrell Jack MD Work Phone: noms CW FMComment on above:Essential hypertension, benign (Primary Dx); Chronic obstructive pulmonary disease, unspecified COPD type (HCC); Primary insomnia; Primary osteoarthritis of both knees; Breast cancer screening by mammogram; Former smokerStart: 02-24-2025 End: 14-75-6332tbregbdzmjDDFN NADERERNot AvailableStart: 02-03-2025 End: 65-06-2536nehvnwxfelMtxb Naderer MD Work Phone: [facility] Work Phone: Start: 02-03-2025 End: 96-97-6105Ykivxmt encounter procedureNiclucila Fitzgerald DO-[facility] [place] Work Phone: Start: 43-34-3520Trvhumrjjq RecurringErik Kim [facility] CredibleStart: 12-30-2024 End: 03-74-6394niqlhsldzmBytnjsl Vytautas Giedraitis MDFacility:[facility] [place] Start: 07-35-2195Yob-patient / Non-visitLatrell Jack MD Work Phone: [facility] Work Phone: Start: 12-12-2024 End: 51-97-3749Jfynmgnaua and management of inpatientLatrell Jack MD Work Phone: [facility] Work Phone: Start: 12-12-2024 End: 26-46-4114Zqstcebbn Result EncounterGeneric External Data ProviderNOMS External Department UnsolicitedStart: 12-12-2024 End: 76-73-8348Ulhcqplis Result EncounterGeneric External Data ProviderNOMS External Department UnsolicitedStart: 12-12-2024 End: 96-19-8161Sswqkdost department patient visitCrescenciodean PalacioMichelle KohliFacility:[facility] Start: 12-04-2024 End: 34-91-3425Ymyxeh outpatient visit 15 minutesLatrell Jack MD Work Phone: noms CWM FMComment on above:Degenerative lumbar spinal stenosis (Primary Dx); Chronic obstructive pulmonary disease, unspecified COPD type (CMS/HCC)Start: 12-04-2024 End: 72-84-7195ohdmfndrumZWJU NADERERNot AvailableStart: 10-30-2024 End: 92-47-4392DhsxnvGtuo Naderer MD Work Phone: noms CWM FMComment on above:Primary insomnia; Chronic obstructive pulmonary disease, unspecified COPD type (CMS/HCC)Start: 10-29-2024 End: 03-94-1661AfpazxNsbt Naderer MD Work Phone: noms CWM FMComment on above:Chronic obstructive pulmonary disease, unspecified COPD type (CMS/HCC); Primary insomniaStart: 09-26-2024 End: 75-27-3182djfohqxzsoBSITGV GILLMORNot AvailableStart: 08-27-2024 End: 18-54-5148Tpbktq Audrey Jack MD Work Phone: noms CWM FMStart: 08-27-2024 End: 39-47-8251Jpouat Audrey Jack MD Work Phone: noms CWM FMStart: 08-27-2024 End: 54-59-7392Agwxmtfhb Result EncounterLatrell Jack MD Work Phone: noms External Department UnsolicitedStart: 08-27-2024 End: 36-75-1116mhadihsnzrWKRW NADERERNot AvailableStart: 08-27-2024 End: 17-86-3212Xukoaou encounter procedureLatrell Jack MD Work Phone: [facility] Work Phone: Start: 08-27-2024 End: 45-32-3276Hlkrwx follow up visit related to original Carline [...] type (CMS/HCC); 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CMS/HCC)Start: 08-07-2024 End: 34-93-5477Nabpghc encounter procedureKatarzyna Snyder APRN.CNP Work Phone: General SurgeryComment on above:Postoperative visit (Primary Dx)Start: 08-07-2024 End: 61-18-7005abmtplejmpIXZDTJJQ MILESFacility:[facility] Systemtart: 07-31-2024 End: 89-04-3693Lxyfouqjo encounterLatrell Jack MD Work Phone: noms CWM FMStart: 07-30-2024 End: 38-38-4718XfsszrRotw Naderer MD Work Phone: noms CWM FMComment on above:Primary insomniaStart: 07-24-2024 End: 21-39-8998Dphtuxevkp and management of inpatientLUCAS GRETCHEN BOYD Facility:[facility]art: 07-23-2024 End: 16-23-7545gxnthrhhlwZQARW STEINKENFacility:[facility] Systemtart: 07-23-2024 End: 40-10-4405Zogqlbjxd Result EncounterGeneric External Data ProviderNOMS External Department UnsolicitedStart: 07-23-2024 End: 99-13-4110Owerwrylc Result EncounterGeneric External Data ProviderNOMS External Department UnsolicitedStart: 07-23-2024 End: 83-52-0513Huykirjudl hospital visit by physicianXr Chest Main Q08Ydwsbzicc Comment on above:Pre-op evaluation [Z01.818]Start: 07-23-2024 End: 08-84-1760Qyzaqvvla to establishmentMark [place] [address] Work Phone: pre AnesthesiaStart: 07-23-2024 End: 88-61-8907Gexkouqdgm consultationMark V[place] [address] Work Phone: pre AnesthesiaComment on above:Pre-op evaluation [...] back pain laterality; Primary insomniaStart: 07-23-2024 End: 29-99-4969Xycwomuipgpmf examination [place] [address] Work Phone: [facility] Work Phone: Start: 50-57-4107Fcvlnwtwh for other preprocedural examinationLUCAS [facility] HospitalStart: 07-23-2024 End: 50-21-7263awhkzvpcdxSCWYJ RANDALL ANTON BEFFAFacility:[facility] Systemtart: 48-86-6884Yuqxuttah for other preprocedural examinationLUCAS [facility] HospitalStart: 06-29-2024 End: 82-83-4000Wtlwpxizx Julia Arcos NP Work Phone: NOMS [place] ROUTEStart: 06-24-2024 End: 28-71-1845vxzyqhughnYlqkfhbMichelle Arguello MDFacility:[facility] [place] Start: 06-13-2024 End: 91-24-3283Eahqhcvou encounterLatrell Jack MD Work Phone: noms CWM FMComment on above:Medication QuestionStart: 06-10-2024 End: 16-23-1630kyvgtyykpyMhpnqktMichelle Arguello MDFacility:[facility] [place] Start: 05-30-2024 End: 17-22-1875Bchxtg outpatient visit 25 minutesSandra Arcos STRATEGY MANAGER Work Phone: noms [facility] ROUTEComment on above:Memory loss (Primary Dx); Severe episode of recurrent major depressive disorder, 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); Generalized anxiety disorder (CMS/HCC); EDWIN on CPAP; Other chronic pain; Other insomniaStart: 05-30-2024 End: 13-63-4481velrajsqhaHIPCZY GILLMORNot AvailableStart: 05-30-2024 End: 42-61-5075Hfflsd Marcellus Arcos STRATEGY MANAGER Work Phone: noms [facility] ROUTEStart: 05-30-2024 End: 41-51-5601Pnvlvq Marcellus Arcos STRATEGY MANAGER Work Phone: noms [facility] ROUTEStart: 05-27-2024 End: 64-33-6637gpolzocqzsGgjtmrcMichelle Arguello MDFacility:[facility] [place] Start: 05-15-2024 End: 03-60-3866Uedegp outpatient visit 25 minutesLatrell Jack MD Work [...] index (BMI) of38.0 to 38.9 in adult ([facility]/HCC)Start: 05-15-2024 End: 89-32-7922ffmwxoplmdNTYF NADERERNot AvailableStart: 05-06-2024 End: 30-63-0791xfhqdahspiVlccaht Vytautas Giedraitis MDFacility:PM [place] Start: 05-04-2024 End: 89-77-6479tsjpqorymvGewllXavier Boyd MD Work Phone: digestive Disease InstComment on above:07.24.24 Cure (Lap Paraesophageal Hernia Repair/EGD 4 hours los 1)Start: 05-04-2024 End: 83-50-9344Zumlmthzmekmo examination doneXavier Boyd MD Work Phone: [facility] ClinicStart: 04-29-2024 End: 63-96-2400nsxqtvherwGXJAQ RANDALL ANTON BEFFAFacility:[facility] Systemtart: 04-29-2024 End: 98-54-4428Kwfdqx outpatient new 45 minutesXavier Boyd MD Work Phone: General SurgeryComment on above:Paraesophageal hernia (Primary Dx)Start: 04-22-2024 End: 99-08-7058Hvqhqxdrm Result EncounterGeneric External Data ProviderNOMS External Department UnsolicitedStart: 04-22-2024 End: 99-11-4957Ytipypghk Result EncounterGeneric External Data ProviderNOMS External Department UnsolicitedStart: 04-22-2024 End: 16-37-6330Bfrpytaoh encounterMisty Mazama MAGeneral SurgeryStart: 04-11-2024 End: 99-33-6834Skstloi encounter procedureMao Morrow PhD Work Phone: NOGK NEUROLOGYComment on above:Memory loss (Primary Dx); Word finding difficulty; EDWIN on CPAP; Other insomnia; Other chronic pain; Generalized anxiety disorder (CMS/HCC); Severe episode of recurrent major depressive disorder, without psychotic features (HCC) ([facility]/HCC)Start: 04-11-2024 End: 56-23-8693hafgpkzyocVMSY NADERERNot AvailableStart: 04-10-2024 End: 04-65-2836Wwmvuwzmg Result EncounterGeneric External Data ProviderNOMS External Department UnsolicitedStart: 04-10-2024 End: 28-66-2950Lmtkdnpqa Result EncounterGeneric External Data ProviderNOMS External Department UnsolicitedStart: 03-26-2024 End: 76-61-7813Kvkibzz encounter Dony Morrow PhD Work Phone: noINF[facility] NEUROLOGYComment on above:Memory loss (Primary Dx); Word finding difficulty; EDWIN on CPAP; Other insomnia; Other chronic pain; Generalized anxiety disorder (CMS/HCC)Start: 03-26-2024 End: 88-33-1767lmamhljymxVMTXYINF DENBESTENNot AvailableStart: 03-26-2024 End: 98-35-3197Vakbvp Trevon Morrow PhD Work Phone: noms NEUROLOGYStart: 03-26-2024 End: 66-09-1339Bdfsvo Trevon Morrow PhD Work Phone: noms NEUROLOGYStart: 03-26-2024 End: 54-58-4313lbfydxvlduGynvjjlf Talal SarminiFacility:FTMCStart: 03-26-2024 End: 78-63-2985Iilungw encounter procedureMuhammad Talal Sarmini [facility] Start: 03-25-2024 End: 17-94-7801rkiwotxmxoHKEJZJ DANNERNot AvailableStart: 03-20-2024 End: 03-05-1266lnkowtaswwIrwaitvv Talal SarminiFacility:FTMCStart: 03-20-2024 End: 30-05-4701Fkfkgsm encounter procedureMuhammad Talal Sarmini [facility] Start: 03-15-2024 End: 85-34-9424Zkiewohiv Result EncounterNicole Amilcar DO Other Phone: noms External Department UnsolicitedStart: 03-15-2024 End: 00-65-9339Giimquxqc Result EncounterNicole Amilcar DO Other Phone: noms External Department UnsolicitedStart: 03-07-2024 End: 49-19-1828Mzpsvq flowsheetNicole Amilcar DO Work Phone: noms [place] R[facility]TEStart: 03-07-2024 End: 41-51-6387Ndaovr flowsheetNicole Amilcar DO Work Phone: noms [place] R[facility]TEStart: 03-07-2024 End: 47-00-5942Bhmevmvzc Result EncounterNicole Amilcar DO Work Phone: noms External Department UnsolicitedStart: 03-07-2024 End: 45-47-7343Murgix outpatient visit 40 minutesNicole Amilcar DO Work Phone: noms [place] ROUTEComment on above:Memory loss (Primary Dx); 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CMS/HCC); Mild cognitive impairment; EDWIN (obstructive sleep apnea)Start: 03-07-2024 End: 67-00-6624zvdpbrfdgxRJISLG DANNERNot AvailableStart: 02-26-2024 End: 80-84-5450uvwnhuqsmeTabrsads Talal SarminiFacility:Bobbi DHStart: 02-26-2024 End: 19-91-3255Plfonwh encounter procedureMuhammad Talal Sarmini 352-8305Ojjtrr-PqmwtC[facility] Start: 69-55-0343tfuqsxyillSdntvcp NILLFacility:Zoraida Brantley DHStart: 11-28-2023 End: 05-41-1274Jnzxjvpnk Result Latrice Jack MD Work Phone: noms External Department UnsolicitedStart: 11-28-2023 End: 32-94-7984Rudtnexks Result Latrice Jack MD Work Phone: noms External Department UnsolicitedStart: 10-13-2023 End: 51-32-4072wpwursobqzRtielwo R NILLFacility:FTMCStart: 10-13-2023 End: 24-82-2280Snqjgyi encounter procedureMichael R NILL [facility] Start: 09-12-2023 End: 96-49-9402utttskdkbpPslugdm R NILLFacility: NorwalkStart: 09-05-2023 ambulatoryMichael NILLFacility: EnakStart: 43-37-1255Rnqgki flowsRonald Jack MD Work Phone: noms CWM FMStart: 93-84-8969Skcbck flowsheetLatrell Jack MD Work Phone: noms CWM FMStart: 08-11-2023 End: 53-42-6753Kfavkv outpatient visit 25 minutesMareli Jack MD Work [...] index [BMI] 40.0-44.9, adult (Z68.41)Start: 07-28-2022 End: 22-33-3432beguvycjtzER LATRELL A NADERERFacility:J1Odtez: 02-22-2022 End: 36-79-1736mdqwsbkfzhAI SHANKAR HAYFacility:L8Osave: 11-11-2021 End: 38-46-3783nkeziwpvzcTZ LATRELL A NADERERFacility:G7Puyld: 11-02-2021 End: 91-78-1679wsjlrnmzarWQ SHANKAR HAYFacility:I2Wogul: 09-10-2021 End: 77-69-7769otsprpptcbNF WILLARD Cárdenas KARANFacility:B2Lwskz: 62-66-8035Xssmkikct for preprocedural laboratory examinationPETER D [facility] Start: 09-07-2021 End: 32-75-5108tsfmivqvhtCE LATRELL Remigio NADERERFacility:W8Uwllf: 09-07-2021 End: 35-24-1139Qfgitgfyj for preprocedural laboratory examinationDR LATRELL Remigio NADERERFacility:C7Hecfm: 88-78-8183Qmzneiqlc for preprocedural cardiovascular examinationPETER D [facility] Hospitaltart: 09-02-2021 End: 11-12-0104uxokuodbrzGO LATRELL Remigio NADERERFacility:B9Adcrw: 09-02-2021 End: 99-36-5791Ojmxzumud for preprocedural cardiovascular examinationDR LATRELL Remigio NADERERFacility:H1 Procedures DateProcedureProcedure DetailPerforming ClinicianStart: 35-69-1939RN LUNG SCREENING LOW DOSELatrell Jack MD Work Phone: Start: 32-39-2845EH TOMOSYNTHESIS SCREENING BIMarc Guero OLIVO Work Phone: Start: 02-27-6821GblevuwzcnuBvqp Naderer MD Work Phone: Start: 19-75-1768TM HIP LT MIN 2VGeneric External Data ProviderStart: 83-65-8660FMA CBC WITH AUTO DIFFLatrell Jack MD Work Phone: Start: 52-09-1675EW CHEST 2V FRONTAL/LATGeneric External Data ProviderStart: 41-56-8089Uaa routine ecg w/least 12 lds w/i&r Generic External Data ProviderStart: 62-23-6646QGD CONFIRM BLOOD TYPEGeneric External Data ProviderStart: 07-23-2024 End: 95-38-2562Jrjmdlkk screenLUCAS BEFFAComment on above:Order Comment: Specimen Type: BLOOD SPECIMEN Ordering Facility: [facility] Address: [address] [place], [place] [address]Performed By: #### 03023-2, HSTNT, 37799-6, 2777-1 #### [facility] CLIA [id number] [address] [place] [address] [place] OF AMERICAStart: 91-12-8588PDV CBC W AUTO DIFF BLDGeneric External Data ProviderStart: 70-82-2071EOS TYPE AND SCREEN,30 DAYGeneric External Data ProviderStart: 47-44-4267YE LUMBAR SPINE WO CONGeneric External Data ProviderStart: 71-68-2073IX FOOT RT MIN 3VGeneric External Data ProviderStart: 12-82-8221CksppjytrycvdedexhbdndhvafKqaspnam Sarmini Start: 79-75-3594UD HEAD/BRAIN WO CONNicole Amilcar DO Other Phone: Start: 46-57-6812CSF FOLIC ACIDNicole Amilcar DO Work Phone: Start: 49-70-4311FRA THYROID STIM HORMONENicole Amilcar DO Work Phone: Start: 33-91-2820II TOMOSYNTHESIS SCREENING Ranjan Jack MD Work Phone: Start: 68-09-5127FpxoxdblmyqTwoojt Amilcar DO Work Phone: Start: 06-66-5220BvyrmiaevbwIfionf Amilcar DO Work Phone: Start: 46-17-8284WjeuvdrbydbUqtlvqn NILL Hand tendon repairedMichael NILL Open reduction of fracture of ankle with internal fixationMichael NILL Repair of meniscusMichael NILL TonsillectomyMichael NILL Plan of Treatment DateCare ActivityDetailAuthorStart: 89-97-0026Tpnufpcdz for malignant neoplasm of colonNOMS HealthcareStart: 16-02-6763Rbqjdrne ScreeningDiabetes Screening [facility]: 38-00-5795Yqithbge ScreeningDiabetes ScreeningMcKitrick Hospitaltart: 72-49-3319FEP Vaccine (1 - 1-dose 75+ series)RSV Vaccine (1 - 1- dose 75+ series)[facility]: 20-34-1802Rzjxujwbm for malignant neoplasm of breastMammogramNOMS HealthcareStart: 02-18-2026Medicare Annual Wellness (AWV)Medicare Annual Wellness (AWV)[facility] HealthcareStart: 08-07-2025 End: 93-79-3007IZ Chest WO contrastCT CHEST WO IVCON Radiology Routine Postoperative visit Expected: 08/07/2025, Expires: 09/06/2025[facility] Work Phone: Comment on above:Expected: 08/07/2025, Expires: 09/06/2025Start: 06-09-2025 End: 69-83-8633Ldxhzfb encounter evsejvdbd25/01/2025 1:10 PM EST Office Visit [facility] [address] [facility] [address] [place] [address] Layla Houston MD [address] [facility] [address] [place] [address] N[facility] Shaji OtolaryngologyStart: 06-04-2025 End: 51-83-4186Xdanjug encounter /26/2025 3:30 PM EST Office Visit [facility] [address] [place] [id number] Sugar Cruz S, AUD [address] [place] [address] NOMLyndon Hernandez AudiologyStart: 04-29-2025 End: 22-49-7272Zgmaiqx encounter xrfmafznc79/21/2025 1:15 PM EDT Office Visit [facility] CWHakeem FM [address] [place] [address] Latrell Jack MD [address] [place] [address] NOMS CWM FMStart: 41-04-9052Qwevvqu referralAccess Hospital Dayton Work Phone: Start: 05-86-2132Rnuvodzvw vaccinationInfluenza Vaccine (#1)[facility] HealthcareStart: 02-24-2025 End: 21-36-5470DG Chest for screening WO contrastCT lung screening low dose Imaging Routine Former smoker Expected: 02/24/2025, Expires: 02/24/2026[facility]R HealthcareComment on above:Expected: 02/24/2025, Expires: 02/24/2026Start: 02-24-2025 End: 00-22-1524BB Breast - bilateral ScreeningBilateral screening mammogram Imaging Routine Breast cancer screening by mammogram Expected: 02/24/2025, Expires: 04/26/2026[facility] Work Phone: Comment on above:Expected: 02/24/2025, Expires: 04/26/2026Start: 02-24-2025 End: 14-48-7527Zkxnkgk encounter procedureNOHILLCREST [facility] FMComment on above:Arrived Start: 02-03-2025 End: 78-58-9184Thafuhq encounter mhehwzlmi12/28/2025 4:00 PM EDT Office Visit [facility] [address] [place] [address] Diomedes Fitzgerald DO [address] [place] [address] MERCEDES BELLEVUEStart: 12-30-2024 End: 26-55-3546Oeuyiht encounter ezzuqghpi39/23/2025 1:00 PM EDT Office Visit [facility] ODOMEVUE [address] [place] [address] Diomedes Fitzgerald DO [address] [place] [address] [facility]OMMARY [facility]ITALtart: 72-52-1159QsdkegyhsLake County Memorial Hospital - Westtart: 00-75-9254Cioowqvx to Social ServicesLake County Memorial Hospital - Westtart: 72-02-4134Mtwyjbig admissionLake County Memorial Hospital - Westtart: 11-27-2024 Screening for malignant neoplasm of breastMaogramBEAR RIVER VALLEY [facility] HealthcareStart: 09-26-2024 End: 46-32-0135Rmobwsh encounter procedureBEAR RIVER VALLEY HOSPITAL [place] [facility] ROUTEStart: 08-27-2024 End: 80-59-8611Qmtsj metabolic 1998 panel - Serum or PlasmaBasic metabolic panel Lab Routine Essential hypertension, benign (CMS/HCC) Expected: 08/27/2024 (Lauren roximate), Expires: 08/27/2025[facility] HealthcareComment on above:Expected: 08/27/2024 (Approximate), Expires: 08/27/2025Start: 08-27-2024 End: 23-27-2867NNX W Auto Differential panel - BloodCBC and differential Lab Routine Encounter for long-term (current) use of medications Expected: 08/10 (Approximate), Expires: 08/27/2025[facility] HealthcareComment on above: Expected: 08/27/2024 (Approximate), Expires: 08/27/2025Start: 08-27-2024 End: 52-96-4001Nfbimdxalu A1c/Hemoglobin.total in BloodHemoglobin A1c Lab Routine Prediabetes Expected: 08/27/2024 (Approximate), Expires: 08/27/2025[facility] Work Phone: Comment on above:Expected: 08/27/2024 (Approximate), Expires: 08/27/2025Start: 08-27-2024 End: 71-97-7622Nnjhdgm function 2000 panel - Serum or PlasmaHepatic function panel Lab Routine Encounter for long-term (current) use of medications Expected: 08/27/2024 (Approximate), Expires: 08/27/2025[facility] HealthcareComment on above: Expected: 08/27/2024 (Approximate), Expires: 08/27/2025Start: 08-27-2024 End: 83-18-3140Iodbd 1996 panel - Serum or PlasmaLipid panel Lab Routine Dyslipidemia ([facility]/HCC) Expected: 08/27/2024 (Approximate), Expires: 08/27/2025 NOMS HealthcareComment on above:Expected: 08/27/2024 (Approximate), Expires: 08/27/2025Start: 08-27-2024 End: 84-93-9925Xgeazmfndhz [Units/volume] in Serum or PlasmaTSH Lab Routine Class 2 severe obesity due to excess calories with serious comorbidity and body mass index (BMI) of 36.0 to 36.9 in adult ([facility]/HCC) Expected: 08/27/2024 (Approximate), Expires: 08/27/2025NOMS HealthcareComment on above:Expected: 08/27/2024 (Approximate), Expires: 08/27/2025Start: 08-16-2024 End: 28-74-6957Eblqasu encounter /07/2025 9:00 AM EST Office Visit [facility] C[facility] [address] [place] [address] Latrell Jack MD [address] [place] [address] NOMS CWM FMStart: 07-24-2024 End: 92-41-9213Vbkxuavdr to same day surgery hartkd7607/24/2024 10:51 AM EST - 07/24/2024 3:42 PM EST Surgery Admitting [address] [place] [address] Xavier Boyd MD [address] [place], [place] [id number] LAPAROSCOPIC RPR PARAESOPHAGEAL HERNIA W/O FUNDOPLASTY W/ MESHAdmittingComment on above:LAPAROSCOPIC RPR PARAESOPHAGEAL HERNIA W/O FUNDOPLASTY W/ MESHStart: 07-24-2024 End: 16-36-4214Kfko rpr paraesphgl hrna incl fundplsty w/meshLAPAROSCOPIC RPR PARAESOPHAGEAL HERNIA W/O FUNDOPLASTY W/ MESH Preoperative examination Paraesophageal hernia 07/24/2024 10:51 AM [facility]: 07-24-2024 Subsequent hospital visit by physicianAdmittingComment on above:Preoperative examination [Z01.818], Paraesophageal hernia [K44.9]Start: 22-66-2916Eklmapi Directive DiscussionAdvance Directive DiscussionMcKitrick Hospitaltart: 06-29-2024 End: 85-11-3438nYPM in Platelet poor plasma by Coagulation assayACTIVATED PARTIAL THROMBOPLASTIN TIME Lab Routine Preoperative examination Paraesophageal hernia Abnormal coagulation profile Expected: 06/29/2024, Expires: 10/29/2024 [facility] HospitalComment on above:Expected: 06/29/2024, Expires: 10/29/2024Start: 06-29-2024 End: 95-98-3051RHE W Auto Differential panel - BloodCOMPLETE BLOOD COUNT AND DIFFERENTIAL Lab Routine Preoperative examination Paraesophageal hernia Exp ected: 06/29/2024, Expires: 10/29/2024leveland ClinicComment on above:Expected: 06/29/2024, Expires: 10/29/2024Start: 06-29-2024 End: 45-36-6933Zjjhfuoxtgocy metabolic 2000 panel - Serum or PlasmaCOMPREHENSIVE METABOLIC PANEL Lab Routine Preoperative examination Paraesophageal hernia Expected: 06/29/2024, Expires: 10/29/2024[facility] ClinicComment on above: Expected: 06/29/2024, Expires: 10/29/2024Start: 06-29-2024 End: 22-41-7745HN panel - Platelet poor plasma by Coagulation assayPROTHROMBIN TIME Lab Routine Preoperative examination Paraesophageal hernia Abnormal results of liver function studies Expected: 06/29/2024, Expires: 10/29/2024[facility] ClinicComment on above:Expected: 06/29/2024, Expires: 10/29/2024Start: 06-29-2024 End: 07-58-1592OGOH AND SCREEN,30 DAYTYPE AND SCREEN,30 DAY Blood Bank Routine Preoperative examination Paraesophageal hernia Expected: 06/29/2024, Expires: 10/29/2024[facility] ClinicComment on above:Expected: 06/29/2024, Expires: 10/29/2024Start: 05-30-2024 End: 81-81-9071Mhpimge encounter procedureNOMS [facility] ROUTEComment on above:ArrivedStart: 05-15-2024 End: 71-98-6748Tqczsfh encounter eesyqmbgs17/06/2024 10:00 AM EST [facility] [address] [place] [address] Latrell Jack MD [address] [place] [address] NOMS CW FMStart: 04-29-2024 End: 54-05-2911Zeqkwlh encounter uyuzpegbx16/21/2024 11:00 AM EDT Office Visit General Surgery [address] [address] Xavier Boyd MD [address] [place] [address] Hiatal HerniaGeneral SurgeryComment on above:Hiatal Hernia Start: 04-11-2024 End: 07-01-4718Jwjcxpg encounter htglrzggi37/03/2024 9:00 AM EDT Office Visit [facility] NE[facility]OLOGY [address] [address] [facility]YStart: 03-26-2024 End: 37-35-7435Skepcpq encounter pspobwbfr55/17/2024 2:30 PM EDT Office Visit NOMS ST NEUROLOGY [address] [address] Mao Morrow, PhD [address] [place] [address] ArrivedFLOWERS HOSP[facility] NEUROLOGYComment on above:ArrivedStart: 03-25-2024 End: 02-48-2660Mcfqtmxlowin / ancillary services nvzufyhabd45/16/2024 8:45 AM EDT Ancillary Procedure [facility] [place] [address] [place] [phone] N[facility]S [place] [facility] ROUTEStart: 03-19-2024 End: 39-35-1609Drywdsy encounter nchqyrdpe95/10/2024 2:00 PM EDT Office Visit [facility] [address] [facility] [place] [phone] Mao Morrow, PhD [address] [place] [id number] [facility] NEUROLOGYStart: 93-91-5724Jvgwm-19 Vaccine ( season)Covid-19 Vaccine ( season)[facility]: 03-10-2024 Covid-19 Vaccine ( season)Covid-19 Vaccine ( season) [facility]: 29-03-7536Pzvqjfmvz vaccinationInfluenza Vaccine (#1)[facility] HealthcareStart: 03-07-2024 End: 97-28-5032Phpnlzelk (Vitamin B12) [Mass/volume] in Serum or PlasmaVitamin B12 Lab Routine Memory loss Expected: 03/07/2024 (Approximate), Expires: 03/07/2025[facility] CenterComment [facility] above:Expected: 03/07/2024 (Approximate), Expires: 03/07/2025Start: 03-07-2024 End: 26-91-1609SUC awake or drowsyEEG awake or drowsy Neurology Routine Memory loss Expected: 03/07/2024 (Approximate), Expires: 03/07/2025[facility] Work Phone: comment on above:Expected: 03/07/2024 (Approximate), Expires: 03/07/2025Start: 03-07-2024 End: 59-76-7635Nsnsqm [Mass/volume] in Serum or PlasmaFolate Lab Routine Memory loss Expected: 03/07/2024 (Approximate), Expires: 03/07/2025[facility] Healthcare Comment on above:Expected: 03/07/2024 (Approximate), Expires: 03/07/2025Start: 03-07-2024 End: 64-41-6365EP Brain WO contrastMR brain wo contrast Imaging Routine Memory loss Expected: 03/07/2024, Expires: 03/07/2025[facility] HealthcareComment on above: Expected: 03/07/2024, Expires: 03/07/2025Start: 03-07-2024 End: 14-30-0831Klaoyifbofw [Units/volume] in Serum or PlasmaTSH Lab Routine Memory loss Expected: 03/07/2024 (Approximate), Expires: 03/07/2025[facility] HealthcareComment on above:Expected: 03/07/2024 (Approximate), Expires: 03/07/2025Start: 03-07-2024 End: 80-91-7424Ixnibko encounter rxkarjmdc65/29/2024 11:30 AM EDT Office Visit [facility] [address] [place] [address] Diomedes Fitzgerald DO [address] [place] [address] 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CMS/HCC)[facility] [place] [address] Comment on above: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CMS/HCC)Start: 02-09-2024 End: 83-97-8060Atlizdk encounter wrcscugpi24/02/2024 9:45 AM EDT Office Visit N[facility] LISA [address] [place] [address] Latrell Jack MD [address] [place] [address] NOMS LISA FMStart: 08-11-2023 End: 40-74-8116Udidn metabolic 1998 panel - Serum or PlasmaBasic metabolic panel Lab Routine Encounter for long-term (current) use of medications Expected: 08/2023 (Approximate), Expires: 08/11/2024[facility] HealthcareComment on above: Expected: 08/11/2023 (Approximate), Expires: 08/11/2024Start: 08-11-2023 End: 71-90-1815OIN W Auto Differential panel - BloodCBC and differential Lab Routine Encounter for long-term (current) use of medications Expected: 08/2023 (Approximate), Expires: 08/11/2024[facility] HealthcareComment on above: Expected: 08/11/2023 (Approximate), Expires: 08/11/2024Start: 08-11-2023 End: 99-83-5982Evlvqsqral A1c measurementHemoglobin A1c Lab Routine Morbid obesity due to excess calories (CMS/HCC) Expected: 08/11/2023 (Approximate), Expires: 08/11/2024[facility] Work Phone: Comment on above:Expected: 08/11/2023 (Approximate), Expires: 08/11/2024Start: 08-11-2023 End: 79-86-1111Uflhhhf function 2000 panel - Serum or PlasmaHepatic function panel Lab Routine Encounter for long-term (current) use of medications Expected: 08/11/2023 (Approximate), Expires: 08/11/2024[facility] HealthcareComment on above: Expected: 08/11/2023 (Approximate), Expires: 08/11/2024Start: 08-11-2023 End: 29-84-4905Hcaqr 1996 panel - Serum or PlasmaLipid panel Lab Routine Dyslipidemia ([facility]/HCC) Expected: 08/11/2023 (Approximate), Expires: 08/11/2024 NOMS HealthcareComment on above:Expected: 08/11/2023 (Approximate), Expires: 08/11/2024Start: 08-11-2023 End: 19-10-5158Lprbphmybws [Units/volume] in Serum or PlasmaTSH Lab Routine Morbid obesity due to excess calories (CMS/HCC) Expected: 08/11/2023 (Approximate),Expires: 08/11/2024[facility] HealthcareComment on above:Expected: 08/11/2023 (Approximate), Expires: 08/11/2024Start: 08-11-2023 End: 93-39-3587Bwgtxxd encounter jwlufpgft87/02/2024 9:45 AM EST Office Visit [facility] [address] [place] [address] Latrell Jack MD [address] [place] [address] [facility] FMComment on above:ArrivedStart: 23-19-5232Dcwdkqm Directive DiscussionAdvance Directive DiscussionMcKitrick Hospitaltart: 86-30-2863Aqqtznzgh vaccinationInfluenza Vaccine (#1)[facility] HealthcareStart: 28-03-4669Gfdrvywhn for osteoporosisBone Density ScreeningMcKitrick Hospitaltart: 96-09-2778Jfuguwzt Vaccine (1 of 2)Shingrix Vaccine (1 of 2)[facility] Start: 19-73-5063Spjieklz ScreeningDiabetes ScreeningMcKitrick Hospitaltart: 90-70-2670Xpcsv panelLipid ScreeningMcKitrick Hospitaltart: 28-72-8136Utptbqzwm for malignant neoplasm of colonMcKitrick Hospitaltart: 06-11-3545Odnunzxtu for malignant neoplasm of breastNOMS HealthcareStart: 11-61-2841Pnfwdyatjy acid therapyAlpha-1 Antitrypsin Deficiency ScreeningMcKitrick Hospitaltart: 09-21-1970 Urine microalbumin profileDTaP,Tdap,Td Vaccine (1 - Tdap)[facility]: 96-28-1456Suqqfr PCP Team Chronic Disease VisitAnnual PCP Team Chronic Disease VisitMcKitrick Hospitaltart: 93-21-0468Thisije ScreeningAnxiety Screening [facility]: 88-83-2295RS Controlled (<130/80)BP Controlled (<130/80) [facility]: 54-31-6729Igohtkqrhx ScreeningDepression Screening [facility]: 91-25-5082Txgbyxjty C screeningHepatitis C Screening [facility]: 09-52-3671UgbturpyqeZdsgifmtdyMjqdqgwls ClinicStart: 03-15-1952Medicare Annual Wellness (AWV)Medicare Annual Wellness (AWV)[facility] HealthcareStart: 19-54-4131Ophfhidbw for malignant neoplasm of colonNOMS HealthcareStart: 58-65-1799Tcwtvwoal for malignant neoplasm of lungLung Cancer Screening Shared Decision MakingOzarks Medical Center End: 71-88-3309PQH COMPLETEECG COMPLETE ECG Routine Preoperative examination Paraesophageal hernia 1 Occurrences starting 05/06/2024 until 05/04/2025 [facility] HospitalComment on above:1 Occurrences starting 05/06/2024 until 05/04/2025Laps rpr paraesphgl hrna incl fundplsty w/meshLAPAROSCOPIC RPR PARAESOPHAGEAL HERNIA W/O FUNDOPLASTY W/ MESH Preoperative examination Paraesophageal hernia MAIN PAVILIONPatient EducationDepression in adults - Discharge instructions [facility] Behavioral Health DC Instructions Know your Meds [facility] Work Phone: Patient referralVan Wert County Hospital [facility]tr Work Phone: REFER FOR ADMIT INTERVIEWREFER FOR ADMIT INTERVIEW Procedures Routine Preoperative examination Paraesophageal hernia [facility] Work Phone: Comment on above:Ordered: 05/06/2024 End: 19-51-3124FC Chest PA and LateralXR CHEST 2V FRONTAL/LAT Radiology Routine Pre-op evaluation Chronic obstructive pulmonary disease, unspecified COPD type (HCC) CHENEY (dyspnea on exertion) 1 Occurrences starting 07/23/[address] [place] [address] Work Phone: Comment on above:1 Occurrences starting 07/23/2024 until 08/23/2025XR Chest PA and LateralXR CHEST 2V FRONTAL/LAT Radiology Routine Pre-op evaluation Chronic obstructive pulmonary disease, unspecified COPD type (HCC) CHENEY (dyspnea on exertion) 07/23/2024 1:58 PM [facility] Immunizations Immunization DateImmunizationNotesCare IjokjiagKecqyshe66-41-2864anvrtrotp virus vaccine, unspecified formulationLatrell Jack MD Work Phone: [facility] CenterKgvndgmcna01-79-8101qbzmcmtxd virus vaccine, unspecified formulationMichael NILL [phone]-QvexaC[facility] Clinic [facility] General Surgery [place] 89-61-4982WUWL-CoV-2 (COVID-19) mRNAMUL.ORD![id number] NILL [phone]-WpxgbC[facility] Clinic [facility] Hospital [facility] 09-95-9789bbjtieltj virus vaccine, unspecified formulationLatrell Jack MD Work Phone: [phone]-HeloaPremier Health05-19-2022 pneumococcal conjugate vaccine, 13 valentNicole Amilcar DO Work Phone: [facility] CenterPbfrozylgz74-10-0899dsrmyaemc virus vaccine, unspecified formulationMuhammad Sarmini [phone]-RxcevPremier Health10-04-2021 SARS-CoV-2 (COVID-19) mRNA BNT-162b2 vaxMichael NILL [phone]-QjzmeCincinnati Children'S Hospital [facility] Comment on above:Result Comment: 2023-09-06: [id number]-KpH-9 (COVID- 19) mRNA BNT-162b2 vaxMichael NILL [phone]-CcfemCincinnati Children'S Hospital Medical Center Comment on above:Result Comment: 2023-09-06: AZX5428-91-3629WKAH-HzO-7 (COVID- 19) mRNA BNT-162b2 vaxMichael NILL [phone]-EbydgCincinnati Children'S Hospital Medical Center Comment on above:Result Comment: 2023-09-06: LVJ9994-43-6315ngfrflykd virus vaccine, unspecified formulationMuhammad Sarmini [phone]-ShwxcPremier Health11-07-2019 influenza virus vaccine, unspecified formulationMuhammad Sarmini [phone]-WdqcdPremier Health11-07-2019 pneumococcal polysaccharide vaccine, 23 valentMuhammad Sarmini [phone]-LmcoiPremier Health11-03-2018 influenza virus vaccine, unspecified formulationMuhammad Sarmini [phone]-XplljPremier Health07-25-2018 pneumococcal conjugate vaccine, 13 valentMuhammad Sarmini [phone]-SezusC[facility] Clinic [facility] Digestive Buapfe57-13-0505 influenza virus vaccine, unspecified formulationMuhammad Sarmini [phone]-ScfhoC[facility] Clinic [facility] Hospital Digestive Dkxzms38-19-7464 influenza virus vaccine, unspecified formulationMuhammad Sarmini [phone]-NumsvCleveland Clinic [facility] Health Payers DatePayer CategoryPayerPolicy ID2025Self-pay2017Medicare (Managed Care)[employer] MEDICARE ADVANTAGE Member Subscriber Plan / Payer (Effective 2016-2024) Name: Shey Obrien Relation to Subscriber: Self Name: Shey Obrien SubscriberID: [id number] Payer ID: [id number] (NAIC) Type: Not on file Address: [address] [id number] Health [id number] 2017Medicare [id number] 2017Unknown1960Medicare [id number] Health [id number] 2.840.1.291607.3.579.2.48462-56-2417Cxvoaqp7400427 2.840.1.254754.3.579.[id number] 2.840.1.729596.3.57[id number] 2.16.840.1.587491.3.579.2.56447-21-7517Onyyuyu6541083 2.16.840.1.541305.3.579.2.02983-50-8644Rwetcmd7050771 2.16.840.1.950902.3.579.2.53877-33-1057Hpaannc2917469 2.16.840.1.506215.3.579.2.33367-11-3915Gdbmqff83937044 2.16.840.1.397195.3.579.2.12189-16-5902Bqechxr82552663 2.16.840.1.750499.3.579.2.14298-57-9875Ggocwiw15754044 2.840.1.540478.3.579.2.34836-46-3758Buhuhcb79519063 2.16.840.1.215904.3.579.2.71254-03-8079Vzxdprx98356963 2.16.840.1.348134.3.579.2.04052-23-1112Szqjyig90883265 2.16.840.1.048402.3.579.2.68089-25-4787Mhdqelg22467188 2.16.840.1.263541.3.579.2.55659-67-7459Lrussqn88205911 2.16.840.1.360696.3.579.2.24310-91-2585Dvmyjjq08666853 2.16.840.1.409872.3.579.2.017500-62-6555Tvlnvyl4394743 2.16.840.1.329902.3.579.2.457535-83-6557Opjpqji2275820 2.16.840.1.104642.3.579.2.175588-94-5533Lkdhnou6435398 2..840.1.250692.3.579.2.063152-01-5732Ibwwrun5798441 2..840.1.302772.3.579.2.922454-43-6024Iijxtpy9667945 2..840.1.213780.3.579.2.060695-61-0084Bxdpjqd0022577 2..840.1.102477.3.579.2.466531-89-6308Dwyppzi1459019 2.840.1.655565.3.579.2.658365-83-9186Ecrxmzy7950624 2.840.1.717985.3.579.2.113962-16-5204Tpynreg3926613 2..840.1.367523.3.579.2.131970-43-2860Sihzadu002173988 2..840.1.853429.3.579.2.22676-06-6030Scjwnby425143939 2.840.1.756414.3.579.2.49340-17-5043Wyhfenq580730689 2.840.1.926500.3.579.2.93[id number] 2.840.1.257464.3.579.2.28267-13-9572Fzgjwmf501502966 2..840.1.744332.3.579.2.19295-87-8294Ysqwqib695391184 2.16.840.1.015112.3.579.2.637Gfmhfwb25654128 2.840.1.813633.3.579.2.531 Xuzfnoy00912693 2.16.840.1.963935.3.579.2.531 Social History DateTypeDetailFacilityStart: 08-05-2023 End: 19-44-5840Cannhzh smoking status NHISEx-smokerNOMS HealthcareStart: 07-10-1967 End: 66-87-6221Hrcgmyg of tobacco useCurrent smokerNOMS HealthcareStart: 07-10-1967 End: 47-11-6320Xevazhm of tobacco useCigarette SmokerNOMS HealthcareStart: 08-05-2023 End: 39-52-5588Ommcnbfucu smoked current (pack per day) - Owgaviec2SAEE HealthcareStart: 08-05-2023 End: 68-42-4811Hahpiqb use panelNOPR HealthcareStart: 23-27-0516Eio Assigned At BirthNot on fileNOMS HealthcareStart: 08-11-2023 End: 57-66-6696Ocbjnvs use and exposureSmokeless tobacco non-userNOMS Healthcare Start: 63-98-7859Nowbtyj smoking statusNeOhio State Harding Hospital General Surgery [facility] Hospitaltart: 03-07-2024 End: 58-15-6099Idzjlvoik beverage intakeCurrent drinker of alcohol (finding)[facility]S HealthcareAre [...] the mortgage or rent on time?NoNOMS HealthcareStart: 05-71-7310Kfwydpg CommentCaffeine: 2-3 cups per dayNOMS HealthcareTobacco smoking status NHIS Tobacco smoking consumption unknownMcKitrick Hospitaltart: 85-28-4479Lqjidx identityIdentifies as female gender (finding)[facility]: 07-23-2024 End: 41-14-2611Crrylwgjm beverage intakeEx-drinker (finding)[facility] Start: 13-50-4154Nignwfq CommentAge 16 - 60, 1/2 - 2 PPD, quit while at 1 PPD [facility] HospitalHow often do you need to have someone help you when you read instructions, pamphlets, or other written material from your doctor or pharmacy [SILS]SometimesNOMS HealthcareSexual OrientationMercy Health Urbana Hospital Start: 09-04-2018 End: 61-47-7212UwgIfeggg (finding)[facility] Centertart: 1950 [facility] Equipment Procedure CodeEquipment CodeEquipment Original TextEquipment IdentifierDatesFelt Thk1.65mm Ptfe 4x.5in Cardiovascular Sterile - [id number]: 07-24-2024 Goals DatePatient GoalDesired Activity/State Functional Status KlihNxdkbwdxjiGzumuhLqyorzit00-88-8667Skzczrsbhx statusPatient at Baseline [facility] Work Phone: [phone]) 238-57430469898-04-5992Wvrkiho Health Questionnaire 2 item (PHQ-2) [Reported][facility] CenterSrkckxesmm92-61-5765Xpmhildbnd StatusN/[facility]08-25-2024Total score [AUDIT-C]3 03/03/2024 8:19 AM Yadira DialloOzarks Medical CenterYfmfjonjqa98-09-9491Xdxuaeivrp StatusN/[facility]ive Dimtmq55-87-8808Opdtvpsgto StatusN/[facility] Mental Status HsskCumkskwswwFcpwndJzkecilj80-76-8624Mpnkyydob functionCognitive Status [facility] Work Phone: Clinical Notes 09-10-2021 to 04-23-2025 Note Date & HnbuFyacLdwhapxn36-48-7652 NoteHNO ID: [id number] Author: KATARZYNA SNYDER APRN.CLINICAL RESEARCH ANALYST Service: ? Author Type: Nurse Practitioner Type: Progress Notes Filed: 04/23/2025 12:10 Note Text: [facility] Clinic Date: [...] which included preparing to see the patient, ksfe-vy-qxcf patient care, completing clinical documentation, obtaining and/or reviewing separately obtained history, performing a medically appropriate examination, and counseling and educating the patient/family/caregiver. Katarzyna Snyder, MSN, CLINICAL RESEARCH ANALYST April 23[facility]10-[facility]-20[facility] NoteHNO ID: [id number] Author: OLGA LIDIA BLAKE MA Service: ? Author Type: Activities Concierge Type: Progress Notes Filed: 04/23/2025 12:10 Note Text: What is the reason for your visit today? Est Who is your referring physician? Dr. Snyder Are you having poor oral intake? NO Have you had unintentional weight loss of 15 lbs/7 Kg in the last 3-6 months? YES Bowels: regular Wound: clean AND dry Temperature: No Drains: [facility] Evaluation note* Diagnosis Onset Date Resolution Status [...] PseudodementiaacuteOct2024 12:27pmObstructive sleep apnea syndrome noneactiveOct2024 12:27pm [facility] Work Phone: 1(970) 615-199808-18-2025 History of Present illness Narrative* Latrell Jack [...] monitor PRN. * Latrell Jack MD - 02/24/2025 4:00 [...] Orders Bilateral screening mammogram documented in this encounterOzarks Medical CenterQzgjyklntp23-26-6016 Evaluation note* Diagnosis Onset Date Resolution Status Admit Date Anxiety acuteJuly 2024 3:29pmMajor depressive disorder, recurrent, moderateacute February 03, 2025 3:29pmMemory lossacuteJuly 2024 3:29pmPrimary insomnia acuteJuly 2024 3:29pmPseudodementiaacuteJuly 2024 3:29pmObstructive sleep apnea syndromenoneactiveJuly 2024 3:29pmPrimary osteoarthritis, left shoulderacuteOctober 2024 11:27am [facility] Work Phone: 1(208) 462-145307-28-2025 Evaluation note* Diagnosis Onset Date Resolution Status Admit Date Anxiety acuteJuly 2024 3:29pmMajor depressive disorder, recurrent, moderateacute February 03, 2025 3:29pmMemory lossacuteJuly 2024 3:29pmPrimary insomnia acuteJuly 2024 3:29pmPseudodementiaacuteJuly 2024 3:29pmObstructive sleep apnea syndromenoneactiveJuly 2024 3:29pmDysfunction of left eustachian tubeacuteOctober 2024 11:27amEssential hypertension, benignacute April 10, 2025 11:27amPrimary osteoarthritis, left shoulderacuteOctober 2024 11:27amTinnitusacuteOctober 2024 11:27am [facility] Work Phone: 1(400) 209-943807-28-2025 Evaluation note* Diagnosis Onset Date Resolution Status [...] 1:07pmPrimary osteoarthritis of both kneesacuteOctober 2024 1:07pm [facility] Work Phone: 1(509) 590-786906-09-2025 [place] [address] Discharge Summary Signed Patient: Shey Obrien MR#: [id number] : 1950 Acct:[id number] Age/Sex: 74 / F Adm Date: 5 Loc: Room: [address] [place] [address]: Erik Kim MD Copies to: [...] boyfriend Employment: retired former [employer] worker in [employer] Relationships: close, supportive relationship with family [...] Instructions: Important Contact Information You can call [facility] at [phone] any timeday or night if you have emergent questions or question regarding discharge instructions. If at anytime you are feeling an increase inyour psychiatric symptoms, call your physician or behavioral healthcare provider. If any time you have thoughts of harming yourself or others contact one of the following: Call (available 30/01) Crisis Text Line (available 30/01) text 4HOPE to 487218 [facility] Line (available 8 a.m. Midnight) call [phone] ([phone]) Instructions: Depression in adults - Discharge instructions, [facility] Behavior[facility] Health DC Instructions, [...] device 1 cap INHALATION DAILY Follow Up: [facility] [Outside] - 12/17/24 (client operations manager will call you tomorrow, if you [...] MD 12/16/24 1131 Signed By: 12/16/24 1546 [facility]06-08-2025 Progress note Author Erik aguilar [facility] CenterNote Date/TimeJune 2024 10:52[place] [address] Psychiatry Progress Note Signed Patient: Shey Obrien MR#: [id number] : 1950 Acct:[id number] Age/Sex: 74 / F Adm Date: 5 Loc: Room: [address] [place] [address] Type : ADM IN Attending Dr: Erik [...] discharge. Documented By: Erik Kim MD 5 6693 Signed By: <Electronically signed by Erik Kim MD> 12/15/24 1052 <Electronically signed by DO MALICK Tee> 12/15/24 0960 [facility] Work Phone: 1(827) 525-595806-08-2025 [place] [address] Psychiatry Progress Note Signed Patient: Shey Obrien MR#: [id number] : 1950 Acct:[id number] Age/Sex: 74 / F Adm Date: 5 Loc: Room: [address] [place] [address] Type : ADM IN Attending Dr: Erik [...] 0941 Signed By: 12/15/24 1052 12/15/24 0943 [facility]06-07-2025 Progress note Author Erik aguilar [facility] CenterNote Date/TimeJune 2024 2:23[place] [address] Psychiatry Progress Note Signed Patient: Shey Obrien MR#: [id number] : 1950 Acct:[id number] Age/Sex: 74 / F Adm Date: 5 Loc: 1S Room: [address] [place] [address] Type : ADM IN Attending Dr: Erik [...] discharge. Documented By: Erik Kim MD 5 4220 Signed By: <Electronically signed by Erik Kim MD> 12/14/[address] [place] [address] Work Phone: 1(376) 385-205506-07-2025 [place] [address] Psychiatry Progress Note Signed Patient: Shey Obrien MR#: [id number] : 1950 Acct:[id number] Age/Sex: 74 / F Adm Date: 5 Loc: 1S Room: [address] [place] [address] Type : ADM IN Attending Dr: Erik [...] MD 5 1301 Signed By: 12/14/24 1423 [facility]06-06-2025 History and physical note Author Erik aguilar [facility] CenterNote Date/TimeJune 2024 10:06[place] [address] Psychiatry H&P Signed Patient: Shey Obrien MR#: [id number] : 1950 Acct:[id number] Age/Sex: 74 / F Adm Date: 5 Loc: 1S Room: [address] [place] [address] Type: ADM IN Attending Dr: Erik Kim [...] boyfriend Employment: retired former [employer] worker in [employer] Relationships: close, supportive relationship with family [...] strong, equal bilaterally. CNXII: Tongue protrusion midline [facility] Medical History (Updated 12/13/24 @ 10:06 [...] discharge. Documented By: Erik Kim MD 5 4068 Signed By: <Electronically signed by Erik Kim MD> 12/13/[address] [place] [address] Work Phone: 1(625) 244-525606-06-2025 [place] [address] Psychiatry H&P Signed Patient: Shey Obrien MR#: [id number] : 1950 Acct:[id number] Age/Sex: 74 / F Adm Date: 5 Loc: 1S Room: [address] [place] [address] Type: ADM IN Attending Dr: Erik Kim [...] boyfriend Employment: retired former [employer] worker in [employer] Relationships: close, supportive relationship with family [...] strong, equal bilaterally. CNXII: Tongue protrusion midline [facility] Medical History (Updated 12/13/24 @ 10:06 [...] MD 5 0841 Signed By: 12/13/24 1006 [facility]06-05-2025 Chief complaint+Reason for visit Narrative* Chief Complaint Admit Date Mental Evaluation. December 12, 2024 6:22p m Mental Evaluation. December 13, 2024 8:41a m Reason for Visit Admit Date Major depressive disorder, recurrent, mo derate December 12, 2024 6:22pm [facility] Work Phone: 1(199) 403-277406-05-2025 Chief complaint+Reason for visit Narrative * Chief Complaint Admit Date Mental Evaluation. December 12, 2024 6:22p m Mental Evaluation. December 13, 2024 8:41a m Reason for Visit Admit Date Major depressive disorder, recurrent, mo derate December 12, 2024 6:22pm Primary insomnia February 03, 2025 3:29 pm Obstructive sleep apnea syndrome February 032024 3:29pm [facility] Work Phone: 1(596) 146-348506-05-2025 Evaluation note* Diagnosis Onset Date Resolution Status Admit Date Major depressive disorder, recurrent, mo derate acuteJune 2024 6:22pm [facility] Work Phone: 1(263) 612-402106-05-2025 Evaluation note* Diagnosis Onset Date Resolution Status Admit Date Major depressive disorder, recurrent, mo derate acuteJune 2024 6:22pmPrimary insomniaacuteJuly 2024 3:29pmObstructive sleep apnea syndromenoneactiveJuly 2024 3:29pm [facility] Work Phone: 1(699) 786-412706-05-2025 Evaluation + Plan noteExtracted from:Title: ED NoteAuthor:Elmer Kohli DODate:12/12/24 Suicidal ideation (R45.851: Suicidal ideations) Orders: CBC w/ Auto Diff Communication Order Comprehensive Metabolic Panel Consult to Mental Health Drug Screen Urine ECG 12 Lead Adult eGFR Ethanol Level UA with Cult Rflx Urine Culture Diagnostic Tests Pending * Urine Culture 12/12/24 [facility] 05-28-2025 History of Present illness Narrative* Latrell Jack MD - 12/04/2024 2:25 PM EDTAssociated Problem(s): Degenerative lumbar spinal stenosis Recent flare and increased pain. Treat with prednisone. Use robaxin for spasms and norco PRN. Follow up with pain management next week as scheduled. * Latrell Jack MD - 12/04/2024 2:24 PM EDTAssociated Problem(s): COPD (chronic obstructive pulmonary disease) ([facility]) SOB stable and continue albuterol nebulized PRN. [...] tablet predniSONE (Deltasone) 50 MG tablet HYDROcodone-acetaminophen (Innis) 5-325 MG tablet documented in this encounterOzarks Medical CenterUxrwiupsjl80-74-1086 History of Present illness Narrative* Latrell Jack [...] (BMI) of 36.0 to 36.9 in adult ([facility]) Weight loss indicated. * Latrell Jack MD [...] Items Addressed This Visit Essential hypertension, benign ([facility]) BP controlled and monitor PRN. Relevant Orders Basic metabolic panel COPD (chronic obstructive pulmonary disease) ([facility]) Symptoms stable and continue spiriva. Use albuterol PRN. Dyslipidemia ([facility]) Relevant Orders Lipid panel Encounter for long-term (current) use of medications Relevant Orders CBC and differential Hepatic function panel Prediabetes Relevant Orders Hemoglobin A1c Class 2 severe obesity due to excess calories with serious comorbidity and body mass index (BMI) of36.0 to 36.9 in adult ([facility]) Weight loss indicated. Relevant Orders TSH Medicare annual wellness visit, subsequent - Primary Due for labs. Discussed proper diet and regular aerobic exercise. Need aerobic exercise 5-6 days a week for 30 minutes at a time. Smaller portions and limit total calories. Colonoscopy every 10 years. Tetanus every 10 years. Advised not to smoke. Discussed daily Aspirin therapy. documented in this encounterOzarks Medical CenterPwsqjmmvrr98-35-1929 NoteHNO ID: [id number] Author: KATARZYNA SNYDER APRN.CLINICAL RESEARCH ANALYST Service: ? Author Type: Nurse Practitioner Type: Progress Notes Filed: 08/07/2024 15:37 Note Text: [facility] Clinic Date: [...] completed prior to appointment Katarzyna Snyder, MSN, CLINICAL RESEARCH ANALYST [facility] 07[facility] of Present illness Narrative* Katarzyna Snyder, LISSETTE.SKYLA - 08/07/2024 2:14 PM EST [facility] Clinic Date: [...] completed prior to appointment Katarzyna Snyder, MSN, CLINICAL RESEARCH ANALYST August 07, 2024 * Olga Lidia Blake [...] Temperature: No Drains: No documented in this encounterOhiohealth O'Bleness [facility]01-29-2025 NoteHNO ID: [id number] Author: OLGA LIDIA BLAKE MA Service: ? Author Type: Activities Concierge Type: Progress Notes Filed: 08/07/2024 15:37 Note Text: What is the reason for your visit today? Post op Who is your referring physician? Dr. Snyder Are you having poor oral intake? NO Have you had unintentional weight loss of 15 lbs/7 Kg in the last 3-6 months? NO Bowels: constipated, diarrhea, or regular Wound: clean AND dry Temperature: No Drains: [facility]01-22-2025 Telephone encounter Note* Telephone Encounter - Latrell Jack MD - 07/31/2024 2:25 PM EST Sent to [facility]. [facility] Medical CenterKjikgpwsty10-14-2165 Miscellaneous Notes* Telephone Encounter - Latrell Jack MD - 07/31/2024 2:25 PM EST Sent to [facility]. * Telephone Encounter - GEO DICK - 07/31/2024 2:20 PM EST Insurance won't cover the extended release ambien. * Telephone Encounter - Sandra Matias - 07/31/2024 1:13 PM EST Patient called and stated that her zolpidem refill was denied. She would like you to call her or the pharmacy. an documented in this encounterNOFreeman Neosho HospitalKyozzmpofn84-07-5446 Telephone encounter Note* Telephone Encounter - GEO DICK - 07/31/2024 2:20 PM EST Insurance won't cover the extended release ambien. [facility] Medical CenterXxudkaayzg76-93-9624 Telephone encounter Note* Telephone Encounter - Sandra Matias - 07/31/2024 1:13 PM EST Patient called and stated that her zolpidem refill was denied. She would like you to call her or the pharmacy. an [facility] Medical CenterEdzntkzssm13-79-5984 NoteHNO ID: [id number] Author: DERREK MARSHALL RN Service: Care Management [...] Obrien DATE: July 26, 2024 TIME: 9:22 [facility]01-16-2025 NoteHNO ID: [id number] Author: DERREK MARSHALL RN Service: Care Management Author Type: Registered Nurse Type: Care Mgt Initial Assessment Filed: 07/25/2024 14:30 Note Text: CARE MANAGEMENT: ASSESSMENT AND DISCHARGE PLAN SERVICE DATE: July 25, 2024 SERVICE TIME: 2:29 PM PCP: Latrell Jack MD Primary Contact: Extended Emergency Contact Information Primary Emergency Contact: Alexandria Cramer Address: [address] [place] [address] Relation: Relative Admission Status: Inpatient Insurance Provider: MEDICARE A AND B Discharge Planning requested by: Per Department Practice Potential Transition Plans To Be Determined Advance Directives Current Advance Directive: None Corporate Safety Director Attempted to Assist with AD Completion: Yes Action: Education Provided Schoolcraft of Choice Explained: Schoolcraft of Choice Given: No Reason Not Given: [...] Obrien DATE: July 25, 2024 TIME: 2:29 [facility]01-16-2025 NoteHNO ID: [id number] Author: DERREK MARSHALL RN Service: Care Management Author Type: Registered Nurse Type: Care Mgt Progress Note Filed: 07/25/2024 14:28 Note Text: CARE MANAGEMENT: ASSESSMENT AND DISCHARGE PLAN SERVICE DATE: July 25, 2024 SERVICE TIME: 2:28 PM PCP: Latrell Jack MD Primary Contact: Extended Emergency Contact Information Primary Emergency Contact: Alexandria Cramer Address: [address] [place] [address] Relation: Relative Admission Status: Inpatient Insurance Provider: MEDICARE A AND B Discharge Planning requested by: Per Department Practice Potential Transition Plans To Be Determined Advance Directives Current Advance Directive: None Corporate Safety Director Attempted to Assist with AD Completion: Yes Action: Education Provided Schoolcraft of Choice Explained: Schoolcraft of Choice Given: No Reason Not Given: [...] Obrien DATE: July 25, 2024 TIME: 2:27 [facility]01-16-2025 NoteHNO ID: [id number] Author: YAN MOSER ? Service: General Surgery [...] and Airways Line Duration Peripheral 07/24/24 0900 [facility] Right Hand 20 Gauge <1 day Peripheral 07/24/24 1111 Left Hand 18 Gauge <1 day SURGERY/PROCEDURE: Procedure(s) and Anesthesia Type: * LAPAROSCOPIC RPR PARAESOPHAGEAL HERNIA W/O FUNDOPLASTY W/ MESH - General [facility]01-15-2025 NoteHNO ID: [id number] Author: NENA SEPULVEDA MD Service: General Surgery [...] MD SERVICE DATE: 07/24/24 SERVICE TIME: 7:09 [facility]01-15-2025 NoteHNO ID: [id number] Author: TRIP GRAY RN Service: Nursing Author Type: Registered Nurse Type: Progress Notes Filed: 07/24/2024 18:55 Note Text: [id number] Paged [id number] to notify that patient came up from PACU with a rdz in but no active rdz order. Requesting order to be placed.[facility] 07-24-2024 NoteHNO ID: [id number] Author: TRIP GRAY RN Service: Nursing Author Type: Registered Nurse Type: Progress Notes Filed: 07/24/2024 18:25 Note Text: Admission/Transfer Note PATIENT NAME: Shey Obrien Patient Location: [place] [address]/[facility]- Room: [place] [address] Patient admitted from PACU via bed in stable condition. Actions taken: Patient oriented to room, call light function, prescribed activities, Patient rights, and Quiet at night. Patient belongings with patient. This note was completed by: Trip GrayK[facility]tering Health [facility] 07-24-2024 NoteHNO ID: [id number] Author: BETTY ALLEN APRN.MONOTYPE MECHANIC Service: ? Author Type: Nurse Slaughterer Religious Ritual Type: Anesthesia Procedure Notes Filed: 07/24/2024 11:23 Note Text: ANESTHESIOLOGY PROCEDURE NOTE Airway General Information Procedure Start Time/Medication Administration: 07/24/2024 11:09 AM Procedure End Time: 07/24/2024 11:09 AM Patient location during procedure: OR Timeout Performed Pre-procedure: timeout performed Consent Obtained: Yes Patient identity confirmed: arm band, care seal delivery vehicle team technician and patient Staffing MONOTYPE MECHANIC: Betty Allen APRN.MONOTYPE MECHANIC Performed by: ELIZABETH Indications and Patient Condition [...] July 24, 2024 TIME: 11:23 AM CSN: [id number] Hospital01-15-2025 NoteHNO ID: [id number] Author: ALLEN, BETTY, STEAK SAUCE MAKER.MONOTYPE MECHANIC Service: ? Author Type: Nurse Slaughterer Religious Ritual Type: Anesthesia Procedure Notes Filed: 07/24/2024 11:23 Note Text: ANESTHESIOLOGY PROCEDURE NOTE PIV General Information Procedure Start Time/Medication Administration: 07/24/2024 11:11 AM Procedure End Time: 07/24/2024 11:11 AM Patient Location: OR Staffing MONOTYPE MECHANIC: Betty Allen APRN.MONOTYPE MECHANIC Performed by: MONOTYPE MECHANIC Preparation Sterility Preparation: hand hygiene performed prior to procedure, surgical cap used, mask used, skin prep agent completely dried prior to procedure Site Prep: alcohol Procedure Details Indication: need for IV access Needle Size/Type: 18 gauge angiocath Orientation: Left Location: Hand Imaging Guidance Used: No SIGNATURE: Betty Allen APRN.CRNA PATIENT NAME: Shey Obrien DATE: July 24, 2024 TIME: 11:22 AM CSN: [id number] Hospital01-15-2025 NoteHNO ID: [id number] Author: ABDELRAHMAN HE MD Service: General Surgery Author Type: Resident Type: Plan of Care Filed: 07/24/2024 10:30 Note Text: Patient consented for study? Yes STUDY TITLE: MVP Trial: Mesh Vs Pledgets for repair of paraesophageal hernia repair: a randomized, blinded, parallel group trial IRB NO.: #[id number] BULL GANG SUPERVISOR: Willard Ramirez MD COORDINATOR/Research Nurse/Telephone Recorder: Abdelrahman He MD Phone/email: [phone], [email or web address] Consenting was performed [...] CRITERIA Yes No 1. The patient lacks [place] language fluency or cannot understand the consent form/study procedures [] [x] 2. The patient is [] [x] 3. The patient has a BMI >45 [] [x] 4. The patient has undergone previous hiatal hernia repair [] [x] 5. The patient will undergo paraesophageal hernia repair with a concurrent bariatric procedure to reduce stomach volume [] [x][facility] 07-23-2024 History of Present illness Narrative* Humera [place] RT(R) - 07/23/2024 2:10 PM EST Radiology Service Progress Note PATIENT NAME: Shey Obrein DATE OF SERVICE: July 23, 2024 TIME: [...] PATIENT PRESENTS WITH AN IMPLANTABLE OR ATTACHED EMBROIDERY DESIGNER: No RADIOLOGY DEPARTMENT: General X-ray: Exam(s) Completed: Chest X-Ray PERIPHERAL IV DATA: Not applicable SIGNED BY: RIANNA Hatfield) July 23, 2024 1:59 PM documented in this encounterOhiohealth O'Bleness Hospital01-14-2025 NoteHNO ID: [id number] Author: HUMERA MURPHY RT(R) Service: Radiology Author [...] PATIENT PRESENTS WITH AN IMPLANTABLE OR ATTACHED EMBROIDERY DESIGNER: No RADIOLOGY DEPARTMENT: General X-ray: Exam(s) Completed: Chest X-Ray PERIPHERAL IV DATA: Not applicable SIGNED BY: RT Liu(R) July 23, 2024 1:59 [facility]01-14-2025 Instructions* Patient Instructions* Jamil Delacruz PA-C - 07/23/2024 1:27 PM EST Images from the original note were not included. [facility] PATIENT PREOPERATIVE INSTRUCTIONS Dr. Boyd has scheduled you for your procedure at this surgery center: [facility] [place] Scheduling Office: [phone] --[address] [id number]. Please read below carefully for your personalized [...] office. If you are currently using a jiga-rfs-zkke injectable or oral medication for diabetes or [...] Procedures: - YOU MUST HAVE A RESPONSIBLE BOOSTER PUMP OILER TAKE YOU HOME. A BINDER CHAINSTITCH OR MIXER PIGMENT CANNOT BE MADE A RESPONSIBLE BOOSTER PUMP OILER. - We recommend that a responsible person [...] call the Monday before. Your surgeon s materials scheduler will tell you what time to call the office. - If you have not reached the departmental materials scheduler by 5 P.M., call [phone] after 5 P.M. the day before your surgery. Please be aware that emergency situations arise, which may delay or change your surgical time. If this happens, we will notify you as soon as possible and regret any inconvenience. If you already have an Advance Directive, please fax a copy to [phone] or email to for it to be [...] day. Jamil Delacruz PA-C documented in this encounterOhiohealth O'Bleness Hospital01-14-2025 History and physical note * Jamil [...] COVID-19 original vaccine, age 12+ yr, monovalent ([employer]- BIONTECH - PURPLE TOP) Only the first [...] pain, CHF, congenital heart defect, DVT/PE, recent MO and murmur/valvular heart disease. GI: See HPI. [...] 404 QTC Calculation (Bazett) 423 Calculated P [place] 32 Calculated R [place] 14 Calculated T [place] 54 Impression NORMAL SINUS RHYTHM NORMAL ECG No results found for this or any previous visit (from the past 46965 hour(s)). Instructions Given to Patient: Instructions located in the after visit summary. Patient given verbal and written preop instructions and voices comprehension and compliance. SIGNATURE: Jamil Delacruz PA-C PATIENT NAME: Shey Obrien DATE: July 23, 2024 TIME: 1:07 PM PAGER/CONTACT #: [facility]01-14-2025 History and physical note* Jamil Delacruz [...] COVID-19 original vaccine, age 12+ yr, monovalent ([employer]- BIONTECH - PURPLE TOP) Only the first [...] pain, CHF, congenital heart defect, DVT/PE, recent MO and murmur/valvular heart disease. GI: See HPI. [...] 404 QTC Calculation (Bazett) 423 Calculated P [place] 32 Calculated R [place] 14 Calculated T [place] 54 Impression NORMAL SINUS RHYTHM NORMAL ECG No results found for this or any previous visit (from the past 69892 hour(s)). Instructions Given to Patient: Instructions located in the after visit summary. Patient given verbal and written preop instructions and voices comprehension and compliance. SIGNATURE: Jamil Delacruz PA-C PATIENT NAME: Shey Obrien DATE: July 23, 2024 TIME: 1:07 PM PAGER/CONTACT #: documented in this encounterOhiohealth O'Bleness Hospital12-23-2024 Telephone encounter Note * Telephone Encounter - Trip Lieberman MA - 07/01/2024 1:22 PM EST [facility] [id number] Miscellaneous Notes* Telephone Encounter - Trip Lieberman MA - 07/01/2024 1:22 PM EST Sending this to Dr Jack * Telephone Encounter - Sandra Arcos NP - 06/29/2024 11:46 AM EST Did we call Dr. Jack's office and let him know that we took over the Aricept. If not can we please. I do not see it documented. Thank you documented in this encounterOzarks Medical CenterSyeglxjqls59-18-3119 Telephone encounter Note* Telephone Encounter - Sandra Arcos NP - 06/29/2024 11:46 AM EST Did we call Dr. Jack's office and let him know that we took over the Aricept. If not can we please. I do not see it documented. Thank you [facility] CenterQwippbntnx36-23-0353 Telephone encounter Note* Telephone Encounter - Cassy Donnelly - 06/13/2024 11:39 AM EST Patient would like her Losartan 50 mg and Pantoprazole 40 mg changed to [facility]of [facility] CenterOnvgvblckm65-97-0994 Miscellaneous Notes* Telephone Encounter - Cassy Donnelly - 06/13/2024 11:39 AM EST Patient would like her Losartan 50 mg and Pantoprazole 40 mg changed to [facility] insteadof [facility] documented in this [facility]11-06-2024 History of Present illness Narrative* Latrell [...] OTC PRN. COPD (chronic obstructive pulmonary disease) ([facility]) Symptoms stable and continue spiriva. Use albuterol [...] index (BMI) of38.0 to 38.9 in adult ([facility]) Weight loss indicated. documented in this encounterOzarks Medical CenterTuhujidviz83-70-4261 NoteHNO ID: [id number] Author: XAVIER BOYD MD Service: ? Author [...] blinded, parallel group trial IRB NO.: #[id number] BULL GANG SUPERVISOR: Pa Prakash MD COORDINATOR/Research Nurse/Telephone Recorder: Abdelrahman He MD Phone/email: [phone], [email or web address] Consenting was performed in person [...] CRITERIA Yes No 1. The patient lacks [place] language fluency or cannot understand the consent form/study procedures [] [x] 2. The patient is [] [x] 3. The patient has a BMI >45 [] [x] 4. The patient has undergone previous hiatal hernia repair [] [x] 5. The patient will undergo paraesophageal hernia repair with a concurrent bariatric procedure to reduce stomach volume [] [x][facility] 04-29-2024 History of Present illness Narrative* Xavier [...] blinded, parallel group trial IRB NO.: #[id number] BULL GANG SUPERVISOR: Pa Prakash MD COORDINATOR/Research Nurse/Telephone Recorder: Abdelrahman He MD Phone/email: [phone], [email or web address] Consenting was performed in person [...] CRITERIA Yes No 1. The patient lacks [place] language fluency or cannot understand the consent [...] Yan Moser - 04/29/2024 11:16 AM EDT [facility] Abdominal Core Health - HISTORY AND [...] UGI reviewed and uploaded. Large Type III [facility]. ASSESSMENT/PLAN: chani Obrien is a 73 year [...] Moser MD General Surgery documented in this encounterOhio[facility]10-21-2024 NoteHNO ID: [id number] Author: YAN MOSER, ? Service: ? Author Type: Physician Type: Progress Notes Filed: 04/29/2024 12:10 Note Text: [facility] - HISTORY AND [...] - Consents obtained Yan Moser MD General SurgeryK[facility] Nurse Note* Diomedes Fiore MA - 04/29/2024 10:50 AM EDT What is the reason for your visit today? Consult Who is your referring physician? Dafne Spears Are you having poor oral intake? YES Have you had unintentional weight loss of 15 lbs/7 Kg in the last 3-6 months? NO Bowels: soft, more frequent Wound: none Temperature: No Drains: No [facility]10-21-2024 Nurse Note* Diomedes Fiore MA - 04/29/2024 10:50 AM EDT What is the reason for your visit today? Consult Who is your referring physician? Dafne Spears Are you having poor oral intake? YES Have you had unintentional weight loss of 15 lbs/7 Kg in the last 3-6 months? NO Bowels: soft, more frequent Wound: none Temperature: No Drains: No documented in this encounterOhiohealth O'Blen[facility]10-14-2024 Telephone encounter Note * Telephone Encounter - Mazama, Danielle Palacio - 04/22/2024 5:32 PM EDT Spoke with PT she state no prior surgeries [facility]10-14-2024 Miscellaneous Notes* Telephone Encounter - MazamaDanielle - 04/22/2024 5:32 PM EDT Spoke with PT she state no prior surgeries documented in this encounterOhiohealth O'[facility]len[facility]10-03-2024 History of Present illness Narrative* Mao [...] No history of alcohol/substance abuse. Reformed smoker. [place] language [place]. Completed high school education as well as some college. Described self asa C student. 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 Motor/Speed of Processing: Left-handed. 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 Recognition discriminability 69th [...] of this individual. Please contact me with [employer] at [phone]. documented in this encounterOzarks Medical CenterVqixhlcwgr39-87-0956 NoteEndoscopic Procedure Report - Other Patient: SHEY [...] All Problems HTN (hypertension) / SNOMED CT 5159051864 / Confirmed Chronic obstructive pulmonary disease / SNOMED CT 72539811 / Confirmed Insomnia / SNOMED CT 278177363 / Confirmed Seasonal allergic rhinitis / SNOMED CT 741408647 / Confirmed Dyslipidemia / SNOMED CT 1855053768 / Confirmed BMI 39.0-39.9,adult / SNOMED CT 219454041 / Confirmed Morbid obesity / SNOMED CT 581596070 / Confirmed GERD (gastroesophageal reflux disease) / SNOMED CT 713589774 / Confirmed Hiatal hernia / SNOMED CT 866987908 / Confirmed EDWIN (obstructive sleep apnea) / SNOMED CT 887238386 / Confirmed Lower extremity edema / SNOMED CT 069698414 / Confirmed TIA (transient ischemic attack) / SNOMED CT 945881352 / Confirmed Screening for malignant neoplasm of colon / SNOMED CT 954296008 / Confirmed Dysphagia / SNOMED CT 26097349 / Confirmed Histories Past Medical History: Resolved Hernia (188714010): Resolved. Sleep apnea (496114405): Resolved. Family History: Father Alcoholism Primary malignant neoplasm of lung COPD Mother Cardiac arrest Alzheimer's disease Procedure history: Colonoscopy (308628019) on 10/13/2023 at 73 Years. ORIF - Open reduction of fracture of ankle with internal fixation (465850800998736). Meniscal repair (657802964). Tonsillectomy (588685789). Hand tendon repaired (610703920). Social History Social & Psychosocial Habits Alcohol [...] NTND Impression and Plan Impression: DYSPHAGIA Plan: -[facility] HospitalComment on above:Result Comment: wrong folder Electronically Signed By: Yovanny OLIVO, Dafne Torres\.maikol\Date and Time Signed: 03/20/24 12:47 [id number] History of Present illness Narrative* Mao Morrow, [...] No history of alcohol/substance abuse. Reformed smoker. [place] language [place]. Completed high school education as well as some college. Describes itself as a C student. 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 Single, never , no children. Resides with her niece and boyfriend. MEDICAL HISTORY/MEDICATION: Past Medical History: Diagnosis Date Anxiety 08/2023 At high risk for falls Benign essential hypertension ([facility]/HCC) Bilateral primary osteoarthritis of knee Chronic bilateral low back pain with left-sided sciatica Chronic insomnia COPD, mild ([facility]/HCC) Dyslipidemia ([facility]) Edema of extremities Encounter for long-term (current) use of medications Fracture of distal end of fibula, sequela Ganglion cyst of flexor tendon sheath of finger, left Hiatal hernia with gastroesophageal reflux disease without esophagitis Memory loss Morbid obesity with body mass index (BMI) of 40.0 to 49.9 ([facility]) EDWIN (obstructive sleep apnea) Osteopenia of lumbar spine Painful orthopaedic hardware (HCC) ([facility]) Postmenopausal Seasonal allergic rhinitis due to pollen [...] individual. Please contact me with anyquestions at [phone]. documented in this encounterOzarks Medical CenterFyadnrzswj03-97-6726 Hospital Discharge instructions Patient Education 03/20/2024 13:07:59 [...] Follow these instructions at home: Medicines Take urhi-jgt-hmguysn and prescription medicines only as told by [...] or drinks. ?Garlic or onions. ?Spicy foods. ?[place] fruits. ?Tomato-based foods. ?Fatty or fried foods. [...] provider. Document Revised: 01/09/2023 Document Reviewed: 01/09/2023 [email or web address] Patient Education 2023 [employer]. 03/20/2024 13:07:56 Gastritis, Adult, Ianx-es-Olus Gastritis, Adult Gastritis is irritation and swelling [...] Follow these instructions at home: Medicines Take xrzq-erf-yybsqvb and prescription medicines only as told by [...] provider. Document Revised: 10/30/2021 Document Reviewed: 10/30/2021 [email or web address] Patient Education 2023 [employer]. 03/20/2024 13:07:48 Hiatal Hernia Hiatal Hernia A [...] reduce GERD symptoms. Medicines. These may include: ?Bcah-ipo-xpxxbgw antacids. ?Medicines that make your stomach empty [...] may include: ?Fatty foods, like fried foods. ?[place] fruits, like oranges or lemon. ?Other foods [...] Do not drink alcohol. General instructions Take ztuv-tec-zzxitxy and prescription medicines only as told by [...] provider. Document Revised: 08/23/2022 Document Reviewed: 08/23/2022 [email or web address] Patient Education 2023 [employer]. 03/20/2024 13:07:46 Endoscopy, Care After Procedure [facility] ([facility]) Endoscopy Care After Procedure Please read the instructions outlined below and refer to this sheet in the next few weeks. These discharge instructions provide you with general information on caring for [facility] Your doctor may also give [...] Document Re-Released: 12/18/2006 ExitCare Patient Information 2009 [employer]. Follow Up Care 02/26/2024 09:52:05 With:Yovanny OLIVO, SENAIT Sifuentes, [facility] Address: When: Unknown Comments:Call for any problems. Office will call to schedule follow up appointment [facility] 09-11-2024 Evaluation + Plan note Future Scheduled Tests Radiology* XR Esophagus 03/20/24 [facility] 09-11-2024 NotePatient Education - Text Endoscopy Care After Procedure Please read the instructions outlined below and refer to this sheet in the next few weeks. These discharge instructions provide you with general information on caring for yourself [facility]. Your doctor may also give [...] Document Re-Released: 12/18/2006 ExitCare? Patient Information ?2009 [employer]. Gastroenterology Hiatal Hernia A hiatal hernia [...] symptoms. ? Medicines. These may include: ? Vmax-cou-iufxgpy antacids. ? Medicines that make your stomach [...] ? Avoid putting pressu (more content not included)...[facility] 03-20-2024 NoteEndoscopic Procedure Report - Other [...] if surgery referral is indicated, will be orderedPomerene HospitalComment on above:Result Comment: Electronically Signed By: Yovanny OLIVO, Dafne Torres\.br\Date and Time Signed: 03/20/24 12:58 EDTOther Comment: Missing Attachment - attachment storage system not supported [id number] Can be viewed in source systemMissing Attachment - attachment storage system not supported [id number] Can be viewed inseastern [facility] systemMissing Attachment - attachment storage system not supported [id number] Can be viewed in source systemMissing Attachment - attachment storage system not supported 0658480 Can be viewed in source systemMissing Attachment - attachment storage system not supported 0736307 Can be viewed in source systemMissing Attachment - attachment storage system not supported [id number] Can be viewed in source [phone] NoteEndoscopic Procedure Report - Other Patient: SHEY [...] All Problems HTN (hypertension) / SNOMED CT 3176167659 / Confirmed Chronic obstructive pulmonary disease / SNOMED CT 03480876 / Confirmed Insomnia / SNOMED CT 379911879 / Confirmed Seasonal allergic rhinitis / SNOMED CT 995022016 / Confirmed Dyslipidemia / SNOMED CT 2263819528 / Confirmed BMI 39.0-39.9,adult / SNOMED CT 689903356 / Confirmed Morbid obesity / SNOMED CT 752673929 / Confirmed GERD (gastroesophageal reflux disease) / SNOMED CT 078147621 / Confirmed Hiatal hernia / SNOMED CT 170783491 / Confirmed EDWIN (obstructive sleep apnea) / SNOMED CT 826008478 / Confirmed Lower extremity edema / SNOMED CT 468920809 / Confirmed TIA (transient ischemic attack) / SNOMED CT 607028856 / Confirmed Screening for malignant neoplasm of colon / SNOMED CT 909594594 / Confirmed Dysphagia / SNOMED CT 46828727 / Confirmed Histories Past Medical History: Resolved Hernia (160193657): Resolved. Sleep apnea (854587460): Resolved. Family History: Father Alcoholism Primary malignant neoplasm of lung COPD Mother Cardiac arrest Alzheimer's disease Procedure history: Colonoscopy (039749396) on 10/13/2023 at 73 Years. ORIF - Open reduction of fracture of ankle with internal fixation (189446457182459). Meniscal repair (568136783). Tonsillectomy (463953649). Hand tendon repaired (999981567). Social History Social & Psychosocial Habits Alcohol [...] NTND Impression and Plan Impression: DYSPHAGIA Plan: -[facility] HospitalComment on above:Result Comment: Electronically Signed By: Yovanny OLIVO, Dafne Torres\.br\Date and Time Signed: 03/20/24 12:47 [id number] History of Present illness Narrative* Diomedes Fitzgerald, [...] high risk for falls Benign essential hypertension ([facility]) Bilateral primary osteoarthritis of knee Chronic bilateral [...] of lumbar spine Painful orthopaedic hardware (HCC) ([facility]) Postmenopausal Seasonal allergic rhinitis due to pollen [...] was counseled on the risks of stroke, MO, and sudden with EDWIN, along with the [...] instructions Return to clinic: documented in this encounterOzarks Medical CenterNjznpzrraa40-96-9782 Note [id number] O'Bleness Hospital 10-13-2023 Evaluation + Plan noteExtracted from:Title:ANES Post-operative Note - GeneralAuthor:Shaji Bethea Jr., DO GDate:10/13/23 Plan Transfer/Discharge: Transfer/Discharge Discharge when meets criteria ( From PACU to Ambulatory Surgery Unit, and To home ). Extracted from:Title:ANES Pre-operative Note - EndoAuthor:Shaji Bethea Jr., DO GDate:10/13/23 Plan [place] [employer] Anesthesiologists (ASA) physical status classification: Class III. Anesthetic Preoperative Plan: Anesthesia General, and -TIVA.[facility]04-05-2024 Hospital Discharge instructions Patient Education 10/13/2023 [...] With:Pa WEBB Address: [address], [address] [place] [phone]- Business (1) When: only if needed [facility]04-05-2024 NotePatient: SHEY OBRIEN Age: 73 years Sex: Female : 1950 Associated Diagnoses: None Author: Pa WEBB MD Subjective no changes to & PFSt. Anthony's HospitalComment on above:Result Comment: Electronically Signed By: Pa WEBB MD\.br\Date and Time Signed: 10/13/23 09:45 [id number] NoteChief Complaint consultation for colonoscopy [facility] Staff 72 year old female [...] Alcoholism: Father. Alzheimer's di (more content not included)...[facility] HospitalComment on above:Result Comment: Electronically Signed By: TRACEY OLIVO, Pa Lynn\Date and Time Signed: 09/12/23 10:16 [id number] History of Present illness Narrative* Latrell Jack [...] referral to General Surgery documented in this encounterOzarks Medical CenterEonhlmxzkd40-32-5378 NoteEXAMINATION: XR CHEST 1 V HISTORY: SHORTNESS [...] Electronically authenticated by: MEHNAZ SANTIAGO Date: 2021-11-02 16:39[facility]03-04-2022 NotePROCEDURE: XR ANKLE RT MIN [...] Electronically authenticated by: WILLARD ANAND Date: 2021-09-10 09:02[facility]03-04-2022 NotePROCEDURE: XR ANKLE RT 2V COMPARISON: 03/02/2020. HISTORY: Pain FINDINGS: 35 seconds of fluoroscopy. 5 fluoroscopic images Interval removal of internal fixation hardware. 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 Patient was treated with Remeron. She [...] Instructions: Important Contact Information You can call [facility] at [phone] any timeday or night if you have emergent questions or question regarding discharge instructions. If at anytime you are feeling an increase inyour psychiatric symptoms, call your physician or behavioral healthcare provider. If any time you have thoughts of harming yourself or others contact one of the following: Call (available 30/01) Crisis Text Line (available 30/01) text 4HOPE to [phone] [facility] Hope Line (available 8 a.m. Midnight) call [phone] ([phone]) Instructions: Depression in adults - Discharge instructions, [facility] Behavioral Health [place] Instructions, [...] Up: [facility] [Outside] - 12/17/24 (client operations manager will call you tomorrow, if you [...] signed by Tra Hobson MD> 12/16/24 1546 [facility] Work Phone: Evaluation + Plan note Future Appointments Appointment Date:03/20/2024 12:15:00 PM Scheduled Provider: Location:[facility] Surgical Services Appointment Type:[facility]gery [facility] Evaluation note* Diagnosis Essential [...] 40.0-44.9, adult (Z68.41) documented in this encounter [facility] HealthcareEvaluation note* Diagnosis Memory loss- Primary Word finding difficulty EDWIN on CPAP Other insomnia Other chronic pain Generalized anxiety disorder (CMS/HCC) Generalized anxiety disorder Severe episode of recurrent major depressive disorder, 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) documented in this encounter [facility] HealthcareEvaluation note* Diagnosis Paraesophageal hernia- Primary Diaphragmatic hernia without mention of obstruction or gangrene [facility] Preoperative examination- Primary Preoperative examination, unspecified Paraesophageal hernia Diaphragmatic hernia without mention of obstruction or gangrene Abnormal results of liver function studies Nonspecific abnormal results of liver function study Abnormal coagulation profile documented in this encounter [facility]Evaluation [facility]* Diagnosis Essential hypertension, benign (CMS/HCC)- [...] Persistent disorder of initiating or maintaining sleep EDWNI (obstructive sleep apnea) Obstructive sleep apnea (adult) [...] in adult (CMS/HCC) documented in this encounter [facility] HealthcareEvaluation note* Diagnosis Essential hypertension, benign [...] index (BMI) of38.0 to 38.9 in adult ([facility]) Essential hypertension, benign ([facility]) Essential hypertension, benign Hiatal hernia with gastroesophageal reflux disease without esophagitis documented in this encounter [facility] HealthcareEvaluation note* Diagnosis Memory loss- Primary Word finding difficulty EDWIN on CPAP Other insomnia Other chronic pain Generalized anxiety disorder ([facility]) Generalized anxiety disorder documented [facility] encounter [facility]* Diagnosis Memory loss- Primary 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[facility]) Senile dementia, uncomplicated Mild cognitive impairment Mild cognitive impairment, so stated EDWIN (obstructive sleep apnea) Obstructive sleep apnea (adult) (pediatric) documented in [facility]* Diagnosis Essential hypertension, benign ([facility]/HCC)- Primary Essential hypertension, benign Chronic obstructive pulmonary disease, unspecified COPD type ([facility]/HCC) Primary insomnia Persistent disorder of initiating or maintaining sleep Primary osteoarthritis of both knees Hiatal hernia with gastroesophageal reflux disease without esophagitis Seasonal allergic rhinitis due to pollen Screening for colon cancer Special screening for malignant neoplasms, colon Morbid obesity due to excess calories ([facility]) Dyslipidemia ([facility]) Other and unspecified hyperlipidemia Encounter for long-term (current) use of medications Encounter for long-term (current) use of other medications Body mass index [BMI] 40.0-44.9, adult (Z68.41) Essential hypertension, benign ([facility]/HCC)- Primary Essential hypertension, benign Dysphagia, unspecified type 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[facility]) Senile dementia, uncomplicated Chronic obstructive pulmonary disease, unspecified COPD type ([facility]/HCC) Hiatal hernia with gastroesophageal reflux [...] smoker -CXR pending documented in this encounter [facility]* Diagnosis Pre-op evaluation- Primary Preoperative [...] and respiratory abnormality documented in this encounter [facility]* Diagnosis Essential hypertension, benign (CMS/HCC)- [...] or maintaining sleep [facility]* Diagnosis Essential hypertension, benign [...] or maintaining sleep documented in this encounter [facility]* Diagnosis Pre-op evaluation- Primary Preoperative examination, unspecified Preoperative examination Preoperative examination, unspecified Paraesophageal hernia Diaphragmatic hernia without mention of obstruction or gangrene Chronic obstructive pulmonary disease, unspecified COPD type ([facility]) CHENEY (dyspnea on exertion) Other dyspnea and [...] aftercare following surgery documented in this encounter [facility]* Diagnosis Essential hypertension, benign (CMS/HCC)- [...] index (BMI) of38.0 to 38.9 in adult ([facility]) Medicare annual wellness visit, subsequent- Primary Prediabetes Other abnormal glucose Dyslipidemia ([facility]) Other and unspecified hyperlipidemia Encounter for long-term (current) use of medications Encounter for long-term (current) use of other medications Essential hypertension, benign (CMS/HCC) Essential hypertension, benign Class 2 severe obesity due to excess calories with serious comorbidity and body mass index (BMI) of36.0 to 36.9 in adult ([facility]) Chronic obstructive pulmonary disease, unspecified COPD type (CMS/HCC) 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[facility]) Senile dementia, uncomplicated documented in this encounter [facility]* Diagnosis Essential hypertension, benign ([facility]/HCC)- Primary Essential hypertension, benign Chronic obstructive pulmonary disease, unspecified COPD type (CMS/HCC) Primary insomnia Persistent disorder of initiating or maintaining sleep Primary osteoarthritis of both knees Hiatal hernia with gastroesophageal reflux disease without esophagitis Seasonal allergic rhinitis due to pollen Screening for colon cancer Special screening for malignant neoplasms, colon Morbid obesity due to excess calories ([facility]) Dyslipidemia (CMS/HCC) Other and unspecified hyperlipidemia Encounter for long-term (current) use of medications Encounter for long-term (current) use of other medications Body mass index [BMI] 40.0-44.9, adult (Z68.41) Essential hypertension, benign ([facility]/HCC)- Primary Essential hypertension, benign Dysphagia, unspecified type 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[facility]/HCC) Senile dementia, uncomplicated Chronic obstructive [...] index (BMI) of38.0 to 38.9 in adult ([facility]) Medicare annual wellness visit, subsequent- Primary Prediabetes Other abnormal glucose Dyslipidemia ([facility]) Other and unspecified hyperlipidemia Encounter for long-term (current) use of medications Encounter for long-term (current) use of other medications Essential hypertension, benign ([facility]/HCC) Essential hypertension, benign Class 2 severe obesity due to excess calories with serious comorbidity and body mass index (BMI) of36.0 to 36.9 in adult ([facility]) Chronic obstructive pulmonary disease, unspecified COPD type (CMS/HCC) 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[facility]) Senile dementia, uncomplicated Chronic obstructive pulmonary disease, unspecified COPD type ([facility]/HCC) Primary insomnia Persistent disorder of initiating or maintaining sleep documented in this encounter [facility] HealthcareEvaluation note* Diagnosis Essential hypertension, benign ([facility]/HCC)- Primary Essential hypertension, benign Chronic obstructive pulmonary disease, unspecified COPD type ([facility]/HCC) Primary insomnia Persistent disorder of initiating or maintaining sleep Primary osteoarthritis of both knees Hiatal hernia with gastroesophageal reflux disease without esophagitis Seasonal allergic rhinitis due to pollen Screening for colon cancer Special screening for malignant neoplasms, colon Morbid obesity due to excess calories ([facility]) Dyslipidemia ([facility]) Other and unspecified hyperlipidemia Encounter for long-term (current) use of medications Encounter for long-term (current) use of other medications Body mass index [BMI] 40.0-44.9, adult (Z68.41) Essential hypertension, benign ([facility]/HCC)- Primary Essential hypertension, benign Dysphagia, unspecified type 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[facility]/HCC) Senile dementia, uncomplicated Chronic obstructive pulmonary disease, unspecified COPD type (CMS/HCC) Hiatal hernia with gastroesophageal reflux disease without esophagitis Primary osteoarthritis of both knees Primary insomnia Persistent disorder of initiating or maintaining sleep EDWIN (obstructive sleep apnea) Obstructive sleep apnea (adult) (pediatric) Essential hypertension, benign ([facility]/HCC)- Primary Essential hypertension, benign Chronic [...] index (BMI) of38.0 to 38.9 in adult ([facility]) Medicare annual wellness visit, subsequent- Primary Prediabetes Other abnormal glucose Dyslipidemia ([facility]) Other and unspecified hyperlipidemia Encounter for long-term (current) use of medications Encounter for long-term (current) use of other medications Essential hypertension, benign ([facility]/HCC) Essential hypertension, benign Class 2 severe obesity due to excess calories with serious comorbidity and body mass index (BMI) of36.0 to 36.9 in adult ([facility]) Chronic obstructive pulmonary disease, unspecified COPD type ([facility]/HCC) 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[facility]) Senile dementia, uncomplicated Primary insomnia Persistent disorder of initiating or maintaining sleep Chronic obstructive pulmonary disease, unspecified COPD type ([facility]/HCC) documented in this encounter [facility] HealthcareEvaluation note* Diagnosis Essential hypertension, benign ([facility]/HCC)- Primary Essential hypertension, benign Chronic obstructive pulmonary disease, unspecified COPD type (CMS/HCC) Primary insomnia Persistent disorder of initiating or maintaining sleep Primary osteoarthritis of both knees Hiatal hernia with gastroesophageal reflux disease without esophagitis Seasonal allergic rhinitis due to pollen Screening for colon cancer Special screening for malignant neoplasms, colon Morbid obesity due to excess calories ([facility]) Dyslipidemia ([facility]) Other and unspecified hyperlipidemia Encounter for long-term (current) use of medications Encounter for long-term (current) use of other medications Body mass index [BMI] 40.0-44.9, adult (Z68.41) Essential hypertension, benign ([facility]/HCC)- Primary Essential hypertension, benign Dysphagia, unspecified type 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[facility]/HCC) Senile dementia, uncomplicated Chronic obstructive pulmonary disease, unspecified COPD type ([facility]/HCC) Hiatal hernia with gastroesophageal reflux disease without esophagitis Primary osteoarthritis of both knees Primary insomnia Persistent disorder of initiating or maintaining sleep EDWIN (obstructive sleep apnea) Obstructive sleep apnea (adult) (pediatric) Essential hypertension, benign ([facility]/HCC)- Primary Essential hypertension, benign Chronic obstructive pulmonary disease, unspecified COPD type ([facility]/HCC) Hiatal hernia with gastroesophageal reflux disease without esophagitis EDWIN (obstructive sleep apnea) Obstructive sleep apnea (adult) (pediatric) Primary osteoarthritis of both knees Primary insomnia Persistent disorder of initiating or maintaining sleep Class 2 severe obesity due to excess calories with serious comorbidity and body mass index (BMI) of38.0 to 38.9 in adult ([facility]) Medicare annual wellness visit, subsequent- Primary Prediabetes Other abnormal glucose Dyslipidemia ([facility]) Other and unspecified hyperlipidemia Encounter for long-term (current) use of medications Encounter for long-term (current) use of other medications Essential hypertension, benign ([facility]) Essential hypertension, benign Class 2 severe obesity due to excess calories with serious comorbidity and body mass index (BMI) of36.0 to 36.9 in adult ([facility]) Chronic obstructive pulmonary disease, unspecified COPD type ([facility]/HCC) 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[facility]) Senile dementia, uncomplicated Degenerative lumbar spinal stenosis- Primary Spinal stenosis of lumbar region Chronic obstructive pulmonary disease, unspecified COPD type (CMS/HCC) documented in this encounter [facility] HealthcareEvaluation note* Diagnosis Essential hypertension, benign- Primary Essential hypertension, benign Chronic obstructive pulmonary disease, unspecified COPD type (HCC) Primary insomnia Persistent disorder of initiating or maintaining sleep Primary osteoarthritis of both knees Hiatal hernia with gastroesophageal reflux disease without esophagitis Seasonal allergic rhinitis due to pollen Screening for colon cancer Special screening for malignant neoplasms, colon Morbid obesity due to excess calories ([facility]) Dyslipidemia Other and unspecified hyperlipidemia Encounter for [...] index (BMI) of38.0 to 38.9 in adult ([facility]) Medicare annual wellness visit, subsequent- Primary Prediabetes Other abnormal glucose Dyslipidemia Other and unspecified hyperlipidemia Encounter for long-term (current) use of medications Encounter for long-term (current) use of other medications Essential hypertension, benign Essential hypertension, benign Class 2 severe obesity due to excess calories with serious comorbidity and body mass index (BMI) of36.0 to 36.9 in adult ([facility]) Chronic obstructive pulmonary disease, unspecified COPD type [...] hazards to health documented in this encounter [facility] HealthcareHospital course Narrative No data available for this section [facility] No data available for this section [facility] Discharge instructionsAmbulatory Orders* Referral to ENT Time Frame: 04/10/25, Location: None Selected * Referral to Orthopedic Surgery Time Frame: 04/10/25, Location: None Selected [facility] Work Phone: Progress note No data available for this section [facility] for [facility] (narrative)* Consultation (Routine) - Pending ReviewSpecialtyDiagnoses / ProceduresReferred By Contact Referred To ContactGeneral Surgery Diagnoses Screening for colon cancer Procedures CO OFFICE/OUTPATIENT [facility] 60 MINUTES Latrell Jack MD [address] [place] [address] [place] [address] [place] [address] Referral IDStatusReasonStart DateExpiration DateVisits RequestedVisits [id number] Review Specialty Services Required / [facility] [...] No December 17 2:30pm Hospital Course Note [facility] SURGERY Clinical Discharge Summary PERSON INFORMATION Name SHEY OBRIEN Age 68 Years 52 Sex FEMALE Language [place] PCP LATRELL JACK Marital Status Single Med Service Ambulatory Surgery Acct# Arrival 02/04/19 11:44:00 Visit Reason SURGERY - RELEASE TRIGGER FINGER LEFT RING FINGER AND E/O CYST LEFT RING FINGER Acuity LOS 012 05:38 Address: [address] [place] [id number] Comment: PROVIDER INFORMATION VITALS INFORMATION Vital Sign [...] COMPUTED TOMOGRAPHY THORAX W/O CNTRST Katarzyna Snyder, STEAK SAUCE MAKER.CLINICAL RESEARCH ANALYST [address] [place], [place] [id number] [facility] [place] [address] Referral IDStatusReasonStlowville DateExpiration DateVisits RequestedVisits [id number] Request Auto-Generated Referral /[id number] / ProceduresReferred By ContactReferred To ContactRadiology Diagnoses Memory loss Procedures MR brain wo contrast Diomedes Fitzgerald, [address] [place] [id number] Referral IDStatusReasonStart DateExpiration DateVisits RequestedVisits [id number] Review/[id number] / ProceduresReferred By ContactReferred To Contact Diagnoses Preoperative examination Paraesophageal hernia Procedures REFER TO [facility] - PREOPERATIVE OPTIMIZATION OFFICE/OUTPATIENT [facility] 60 MINUTES Katarzyna Carter, STEAK SAUCE MAKER.CLINICAL RESEARCH ANALYST [address] [place], [place] [phone] Referral IDStatusReasonStart DateExpiration DateVisits RequestedVisits [id number] PCP Requested Referral /[id number] / ProceduresReferred By ContactReferred To ContactB[facility] Diagnoses Preoperative examination Paraesophageal hernia Procedures ECG COMPLETE ECG ROUTINE ECG W/LEAST 12 LDS W/I&R Katarzyna Carter, STEAK SAUCE MAKER.CLINICAL RESEARCH ANALYST [address] [place] [address] [facility] [address] [facility] [place] [address] Referral IDStatusReasonStart DateExpiration DateVisits RequestedVisits [id number] Request Auto-Generated Referral Chief Complaint and Reason for Visit Chief Complaint Admit Date January 21, 2025 3:32 pm [facility] [place] April 10, 2025 11:27am Reason for Visit [...] :27am Chief Complaint Admit Date Hospital [facility] [place] April 10, 2025 11:27am April 23, 2025 3 :04pm TB CONSULT DR JACK LT SHOULDER PAIN [facility] April 24, 2025 10:39am Chief Complaint Admit Date Hospital [facility] [place] April 10, 2025 11:27am April 23, 2025 3 :04pm TB CONSULT DR JACK LT SHOULDER PAIN WX [facility] April 24, 2025 10:39am Established Patient April [...] Apr 1:07pm Chief Complaint Admit Date Hospital [facility] April 10, 2025 11:27am BH April 23, [...] section and content) DATE CREATED AUTHOR 02/17/2019 [facility] DATE CREATED AUTHOR AUTHOR'S ORGANIZ ATION 08/03/2022 [facility] DATE CREATED AUTHOR AUTHOR'S ORGANIZ ATION 03/28/2024 [facility] DATE CREATED AUTHOR AUTHOR'S ORGANIZ ATION 04/04/2024 [facility] DATE CREATED AUTHOR AUTHOR'S ORGANIZ ATION 12/13/2024 [facility] DATE CREATED AUTHOR AUTHOR'S ORGANIZ ATION 12/17/2024 [facility] DATE CREATED AUTHOR AUTHOR'S ORGANIZ ATION 02/25/2025 [facility] DATE CREATED AUTHOR AUTHOR'S ORGANIZ ATION 04/25/2025 [facility] DATE CREATED AUTHOR AUTHOR'S ORGANIZ ATION 04/25/2025 [facility] DATE CREATED AUTHOR AUTHOR'S ORGANIZ ATION 05/03/2025 [facility] Care Teams (unrecognized sec tion and [...] Latrell Jack MD [address] [place] [address] PCP - GeneralFamily Medicine08/05/23Team MemberRelationshipSpecialtyStart DateEnd Date Latrell Jack MD [address] [place] [phone] PCP - GeneralFamily Medicine08/05/23Team MemberRelationshipSpecialtyStart DateEnd Date Latrell Jack MD [address] [place] [phone] PCP - GeneralFamily Medicine08/05/23Team MemberRelationshipSpecialtyStart DateEnd Date Dafne Spears MD [address] [address] Internal Medicine04/02/24Team MemberRelationshipSpecialtyStart DateEnd Date Dafne Spears MD [address] [facility] [address] [address] Internal Medicine04/02/24Team MemberRelationshipSpecialtyStart DateEnd Date Dafne Spears MD [address] [place] [address] Internal Medicine04/02/24Team MemberRelationshipSpecialtyStart DateEnd Date Latrell Jack MD [address] [place] [phone] PCP - GeneralFamily Medicine08/05/23Team MemberRelationshipSpecialtyStart DateEnd Date Latrell Jack MD [address] [place] [phone] PCP - GeneralFamily Medicine08/05/23Team MemberRelationshipSpecialtyStart DateEnd Date Latrell Jack MD [address] [place] [address] PCP - GeneralFamily Medicine08/05/23 Diomedes Fitzgerald DO [address] [place] [address] Referring TgaiorrsoFkctpwypy05/21/24Team MemberRelationshipSpecialtyStart Date End Date Latrell Jack MD [address] [place] [phone] PCP - GeneralFamily Medicine08/05/23Team MemberRelationshipSpecialtyStart DateEnd Date Latrell Jack MD [address] [place] [phone] PCP - GeneralFamily Medicine08/05/23Team MemberRelationshipSpecialtyStart DateEnd Date Latrell Jack MD [address] [place] [address] PCP - GeneralFamily Medicine08/05/23Team MemberRelationshipSpecialtyStart DateEnd Date Latrell Jack MD [address] [place] [address] PCP - Generalmily Medicine08/05/23Team MemberRelationshipSpecialtyStart DateEnd Date Latrell Jack MD [address] [place] [address] PCP - Generalmily Medicine08/05/23Team MemberRelationshipSpecialtyStart DateEnd Date Latrell Jack MD [address] [place] [address] PCP - Generalmily Medicine08/05/23 Diomedes Fitzgerald DO [address] [place] [address] Referring SvntxcinlOohcbnjum74/21/24Team MemberRelationshipSpecialtyStart Date End Date Latrell Jack MD [address] [place] [address] PCP - GeneralFamily Medicine08/05/23 Diomedes Fitzgerald DO [address] [place] [address] Referring OkrczhyxaFjlsiqhah71/21/24Team MemberRelationshipSpecialtyStart Date End Date Latrell Jack MD [address] [place] [phone] PCP - GeneralFamily Medicine08/05/23 Diomedes Fitzgerald DO [address] [place] [address] Referring NesabnpbpMyaaihqom03/21/24Team MemberRelationshipSpecialtyStart Date End Date Latrell Jack MD [address] [place] [address] PCP - GeneralFamily Wlyqkqjn03/23/24 Dafne Spears MD [address] [address] Internal Medicine04/02/24Team MemberRelationshipSpecialtyStart DateEnd Date Latrell Jack MD [address] [place] [address] PCP - GeneralFamily Lskxcozr24/23/24 Dafne Spears MD [address] [address] Internal Medicine04/02/24Team MemberRelationshipSpecialtyStart DateEnd Date Latrell Jack MD [address] [place] [address] PCP - GeneralFamily Medicine08/05/23 Diomedes Fitzgerald DO [address] [place] [address] Referring EgoijbxtdIeabvebsn10/21/24Team MemberRelationshipSpecialtyStart Date End Date Latrell Jack MD [address] [place] [phone] PCP - GeneralFamily Medicine08/05/23 Diomedes Fitzgerald DO [address] [place] [address] Referring PlcgdkjdwSvflohngl82/21/24Team MemberRelationshipSpecialtyStart Date End Date Latrell Jack MD [address] [place] [address] [facility] - [facility] Uzezroyy80/23/24 Dafne Spears MD [address] [place] [address] Internal Medicine04/02/24Team MemberRelationshipSpecialtyStart DateEnd Date Latrell Jack MD [address] [place] [phone] PCP - Generalmily Medicine08/05/23 Latrell Jack MD [address] [place] [phone] PCP - [facility]08/16/24 Diomedes Fitzgerald DO [address] [place] [address] Referring RxopfejlxJrdzshtua96/21/24Team MemberRelationshipSpecialtyStart Date End Date Latrell Jack MD [address] [place] [address] PCP - [facility] Medicine08/05/23 Latrell Jack MD [address] [place] [address] PCP - [facility]08/16/24 Diomedes Fitzgerald DO [address] [place] [address] Referring IwqhtwkrrRotgjebuc33/21/24Team MemberRelationshipSpecialtyStart Date End Date Latrell Jack MD [address] [place] [address] PCP - [facility] Medicine08/05/23 Latrell Jack MD [address] [place] [address] PCP - [facility]08/16/24 Diomedes Fitzgerald DO [address] [place] [address] Referring QutuepdxhQuofxjfiq50/21/24Team MemberRelationshipSpecialtyStart Date End Date Latrell Jack MD [address] [place] [address] PCP - [facility] Medicine08/05/23 Latrell Jack MD [address] [place] [address] PCP - ACO [facility]08/16/24 Diomedes Fitzgerald DO [address] [place] [address] Referring CmnnddochDeboinkon26/21/24Team MemberRelationshipSpecialtyStart Date End Date Latrell Jack MD [address] [place] [address] PCP - [facility] Medicine08/05/23 Latrell Jack MD [address] [place] [address] PCP - ACO [facility]08/16/24 Diomedes Fitzgerald DO [address] [place] [address] Referring AyyszhaffDuspgxgxd58/21/24Te MemberRelationshipSpecialtyStart Date End Date Latrell Jack MD [address] [place] [address] PCP - [facility] Medicine08/05/23 Latrell Jack MD [address] [place] [address] PCP - [facility], 1928–198308/16/24 Diomedes Fitzgerald DO [address] [place] [address] Referring IklspqpjyKyoglyalv73/21/24Team MemberRelationshipSpecialtyStart Date End Date Latrell Jack MD [address] [place] [phone] PCP - [facility]08/05/23 Latrell Jack MD [address] [place] [address] PCP - O [facility]08/16/24 Diomedes Fitzgerald DO [address] [place] [address] Referring NbgibbimuEybpjqjku45/21/24 Team Status: Inactive Member Role Status Dates [...] 2024 Babs Romero ProviderActiveStart: December 13, 2024 Rdaha Romeroending ProviderActiveStart: December 13, 2024 Erik Kim MDOther ProviderActiveStart: December 13, 2024 Team MemberRelationshipSpecialtyStart DateEnd Date Latrell Jack MD [address] [place] [phone] PCP - [facility] Medicine08/05/23 Latrell Jack MD [address] [place] [address] PCP - [facility]08/16/24 Diomedes Fitzgerald DO [address] [place] [address] Referring WmtwxurvdPtuacovqt56/21/24 Sugar Arenas, RPG PROGRAMMER [address] [facility] [place] [address] Social WorkerCity Of Hope, [place]01/16/25Team MemberRelationshipSpecialtyStart DateEnd Date Latrell Jack MD [address] [place] [address] PCP - [facility]08/05/23 Latrell Jack MD [address] [place] [address] PCP - ACO [facility]08/16/24 Diomedes Fitzgerald DO [address] [place] [address] Referring CcidrgfiqXvszhhlbz35/21/24 Sugar Arenas, RPG PROGRAMMER [address] [facility] [place] [address] Social WorkerCity Of Hope, [place]01/16/25Team MemberRelationshipSpecialtyStart DateEnd Date Latrell Jack MD [address] [place] [address] PCP - [facility]08/05/23 Latrell Jack MD [address] [place] [address] PCP - ACO [facility]08/16/24 Diomedse Fitzgerald DO [address] [place] [address] Referring QlgvjknceFybnpuldd30/21/24 Sugar Arenas, [facility] [address] [place] [address] Social WorkerCity Of Hope, [place]01/16/25Team MemberRelationshipSpecialtyStart DateEnd Date Latrell Jack MD [address] [place] [place] [address] PCP - [facility]08/05/23 Latrell Jack MD [address] [place] [address] PCP - [facility], 1928–198308/16/24 Diomedes Fitzgerald DO [address] [place] [address] Referring RgttkrqtqZwfpyvihz17/21/24 Sugar Arenas, [facility] [address] [place] [address] Social WorkerCity Of Hope, [place] Team Status: Active Member Role/Relationship Status Dates [...] Medicine08/05/23 Latrell Jack MD [address] [place] [address] PCP - [facility]08/16/24 Diomedes Fitzgerald DO [address] [place] [address] Referring HtbodeaqlDlsccvvfx24/21/24 Sugar Arenas, RPG PROGRAMMER [address] [place] [address] Social WorkerElizabeth [facility]irmary MedicineTeam MemberRelationshipSpecialtyStart DateEnd Date Latrell Jack MD PCP - [facility] Medicine08/05/23 Latrell Jack MD [address] [place] [address] PCP - ACO [facility]08/16/24 Diomedes Fitzgerald DO [address] [place] [address] Referring CjrnlwniqErixffvqc24/21/24 Sugar Arenas, RPG PROGRAMMER [address] [place] [address] [facility] CenterTeam MemberRelationshipSpecialtyStart DateEnd Date Latrell Jack MD PCP - [facility]08/05/23 Latrell Jack MD [address] [place] [address] PCP - ACO [facility]08/16/24 Diomedes Fitzgerald DO [address] [place] [address] Referring GgzgrarxjFppqzjfte80/21/24 Sugar Arenas, RPG PROGRAMMER [address] [place] [address] Social WorkerFamiEvans Memorial HospitalTeam MemberRelationshipSpecialtyStart DateEnd Date Latrell Jack MD PCP - [facility]08/05/23 Latrell Jack MD [address] [place] [address] PCP - [facility], 1928–[address]308/16/24 Diomedes Fitzgerald DO [address] [place] [address] Referring VbscqjmdfPgvkzdnrj20/21/24 Sugra Arenas, RPG PROGRAMMER [address] [facility] [place] [address] Social WorkerCity Of Hope, [place]Team MemberRelationshipSpecialtyStart DateEnd Date Latrell Jack MD PCP - [facility]08/05/23 Latrell Jack MD [address] [place] [address] [facility] - [facility], 1928–198308/16/24 Diomedes Fitzgerald DO [address] [place] [address] Referring WyjlezoymFrrarlwjs71/21/24 Sugar [place], RPG PROGRAMMER [address] [place] [address] Social WorkerCity [facility] Hope, [place] Team Status: Inactive Member Role/Relationship Status Dates Latrell Jack MD Primary Care Provider Active S tart: April 10, 2025 End: April 10, 2025[facility] Radha Jackending ProviderActiveStart: April 10, [...] April 29, 2025 End: April 29, 2025[facility] Luis M Jack ProviderActiveStart: April 29, 2025 End: April 29, 2025 Team Status: Inactive Member Role/Relationship Status Dates Latrell Jack MD Primary Care Provider Active S tart: May 08, 2025 End: May 08tim Arcos APRNAttending ProviderActiveStart: May 08, 2025 End: May 08, 2025 Reason for Visit (unrecogniz ed section and content) ReasonCommentsFollow-up6 mReasonCommentsNew Patient EvaluationHiatal Hernia JofuhlMapldugb33.15.25 CureLap Paraesophageal Hernia Repair/EGD 4 hours los 1 ReasonCommentsFollow-up3 mReasonOnset DateCommentsMedication Atbsgprf58/05/2024 ReasonCommentsMemory LossDysphagiaSpecialtyDiagnoses / ProceduresReferred By ContactReferred To ContactNeurology Diagnoses 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CMS/HCC) Other dysphagia Procedures CO OFFICE/OUTPATIENT [facility] 60 MINUTES Latrell Jack MD [address] [place] [address] Diomedes Fitzgerald DO [address] [place] [address] Referral IDStatusReasonStart DateExpiration DateVisits RequestedVisits [id number] Specialty Services Required /[id number] LossSpecialtyDiagnoses / Procedures Referred By ContactReferred To Contact Diagnoses Preoperative examination Paraesophageal hernia Procedures REFER TO [facility] - PREOPERATIVE OPTIMIZATION OFFICE/OUTPATIENT [facility] 60 MINUTES Katarzyna SnyderLISSETTE.[facility] [address] [place] [address] Referral IDStatusReasonStart DateExpiration DateVisits RequestedVisits [id number] PCP Requested Referral 1ReasonOnset DateCommentsMed Kxzgkc1807/30/2024ReasonComments Post OpReasonCommentsMedicare Annual Wellness Visit SubsequentwellnessReason CommentsMed RefillReasonOnset DateCommentsMed Bvgjvi0010/30/2024ReasonComments Follow-upER F/UReasonCommentsFollow-up6m Source Comments (unrecognize d section and content) In the event this informatio n is protected by the Federal Confidentiality of Alcohol and Drug Abuse Patient Records regulations: The Federal rules restrict any use of the information to criminally investigate or prosecute any alcohol or drug abuse patient.[facility] HospitalIn the event this information is protected by the Federal Confidentiality of Alcohol and Drug Abuse Patient Records regulations: The Federal rules restrict any use of the information to criminally investigate or prosecute any alcohol or drug abuse patient.[facility] HospitalIn the event this information is protected by the Federal Confidentiality of Alcohol and Drug Abuse Patient Records regulations: The Federal rules restrict any use of the information to criminally investigate or prosecute any alcohol or drug abuse patient.[facility] HospitalIn the event this information is protected by the Federal Confidentiality of Alcohol and Drug Abuse Patient Records regulations: The Federal rules restrict any use of the information to criminally investigate or prosecute any alcohol or drug abuse patient.[facility] HospitalIn the event this information is protected by the Federal Confidentiality of Alcohol and Drug Abuse Patient Records regulations: The Federal rules restrict any use of the information to criminally investigate or prosecute any alcohol or drug abuse patient.[facility] HospitalIn the event this information is protected by the Federal Confidentiality of Alcohol and Drug Abuse Patient Records regulations: The Federal rules restrict any use of the information to criminally investigate or prosecute any alcohol or drug abuse patient.[facility] Goals (unrecognized section and content) Goals may [...] BE BASED ON THE PRIMARY CLINICAL RECORDS. [facility] [employer] provides no warranty or guarantee of the accuracy or completeness of information in this document.
[2025-06-20] MEDS: MORPHINE SULFATE 2 MG/ML SYRINGE IV (17:02)
[2025-06-20 17:11] LABS: Basophils Abs Manual 0.00 10^3/uL (0.00-0.10); Basophils Percent Manual 0.0 % (0.2-2.0); Eosinophils Absolute Manual 0.00 10^3/uL (0.00-0.70); Eosinophils Percent Manual 0.0 % (0.9-7.0); Lymphocytes Absolute Manual 0.43 10^3/uL (1.20-3.80); Lymphocytes Percent Manual 6.0 % (20.5-60.0); Monocytes Absolute Manual 0.29 10^3/uL (0.30-0.80); Monocytes Percent Manual 4.0 % (1.7-12.0); Segmented Neut Absolute Manual 6.57 10^3/uL (1.4-6.5); Segmented Neutrophils % Manual 90.0 (43.0-75.0)
--- NOTE | 2025-06-20 17:12 | CT_ITS ---
The [address] [place], [place] [address] Patient Name: PARTH BOSS MRN: [id number] date: 1950 Sex: F Assigned Patient Location: ER Current Patient Location: .MAIN Accession/Order Number: [id number] Exam Date: 06/20/2025 17:09 Report Date: 06/20/2025 18:53 At the request of: ROLO DELUCA MD Procedure: CT abdomen pelvis w con CT ABDOMEN AND PELVIS WITH INTRAVENOUS CONTRAST: CLINICAL HISTORY: Pain, vomiting, possible bowel obstruction COMPARISON: None TECHNIQUE: Spiral images were obtained through the abdomen and pelvis following the administration of intravenous contrast. This CT exam was performed using one or more following dose reduction techniques: Automated exposure control, adjustment of the mA and/or kV according to patient size, or use of iterative reconstruction technique. FINDINGS: Bibasilar atelectasis /subpleural opacities. Cardiomegaly. Coronary disease. Suspect mild thickening GE junction with minimal haziness at the level esophagus may raise possibility for esophagitis. No definite pneumoperitoneum or pneumomediastinum within the lqqnw-eu-ilzo. Fatty infiltration liver. There is gallbladder wall thickening versus fluid noted. Gallbladder is mildly distended. Spleen, adrenals, and pancreas unremarkable. Right renal cyst. Otherwise kidneys and in size without hydronephrosis. No definite nephrolithiasis. Scattered small and large bowel air-fluid levels noted possibly related to enteritis or enterocolitis. No bowel obstruction. Bladder is collapsed. No adnexal mass. No free fluid. No adenopathy. Moderate plaque involving the nonaneurysmal aorta and iliac vasculature. Multilevel posterior element degenerative changes involving the lumbar spine. . CT/CT abdomen pelvis w con IMPRESSION: Mild haziness along the distal esophagus may raise possibility for esophagitis or reflux.. Gallbladder wall thickening and haziness noted could raise possibility for cholecystitis. If warranted, consider ultrasound. Mild scattered small bowel air-fluid levels may raise possibility for nonspecific enteritis. Impression dictated by: Dante Armendariz M.D. 06/20/2025 6:53 PM Dictation Location: [place] [address] Electronically authenticated by: [id number] Y Date: 06/20/2025 18:53
[2025-06-20 17:31] LABS: Glucose Urine UA NEGATIVE (NEGATIVE)
[2025-06-20 17:43] LABS: Cast Seen? NONE SEEN #/LPF (NONE SEEN); Crystals Seen? None Seen #/HPF (None Seen)
[2025-06-20 17:44] LABS: Urine Culture Indicated YES-FRMC
--- NOTE | 2025-06-20 18:58 | US_ITS ---
The [address] [address] Patient Name: PARTH BOSS MRN: [id number] date: 1950 Sex: F Assigned Patient Location: ER Current Patient Location: ER Accession/Order Number: [id number] Exam Date: 06/20/2025 19:56 Report Date: 06/20/2025 20:47 At the request of: ROLO DELUCA MD Procedure: US right upper quadrant Ultrasound right upper quadrant INDICATION: Abnormal CT scan COMPARISON: CT 06/20/2025 FINDINGS: Fatty liver. Normal hepatopedal flow within the liver. Gallbladder wall 2.9 mm. Common bile duct 6.3 mm. Echogenic foci noted throughout the gallbladder. Hypoechoic areas identified surrounding the gallbladder wall may raise possibility for pericholecystic fluid. Cueto's sign is positive. Right kidney unremarkable. US/US right upper quadrant IMPRESSION: Abnormal gallbladder findings with positive Cueto's sign worrisome for developing cholecystitis. Impression dictated by: Dante Armendariz M.D. 06/20/2025 8:47 PM Dictation Location: [place] [address] Electronically authenticated by: [id number] Y Date: 06/20/2025 20:47
[2025-06-20 19:23] LABS: Alanine Aminotransferase 257 U/L (14-59); Albumin Globulin Ratio 0.9; Albumin Level 3.9 g/dL (3.4-5.0); Alkaline Phosphatase 166 U/L (46-116); Amylase 18 U/L (25-115); Aspartate Amino Transferase 124 U/L (15-37); Globulin 4.5 g/dL; Lipase 25.0 U/L (16.0-77.0); Total Protein 8.4 g/dL (6.4-8.2)
[2025-06-20] MEDS: METRONIDAZOLE/SODIUM CHLORIDE 500 MG/100 ML PREMIX 100 MG IV (22:12)
[2025-06-21] VITALS: PULSE 85; O2SAT 100
[2025-06-21 00:02] VITALS: BP 176/80; PULSE 85; O2SAT 98
[2025-06-21 00:25] VITALS: TEMP 38.4
[2025-06-21] MEDS: IBUPROFEN 600 MG TABLET PO (00:25)
[2025-06-21 00:29] VITALS: BP 176/80; PULSE 85; TEMP 38.4; O2SAT 98
== END 2025-06-21 00:30 | disposition short-term general hospital (02) ==
PROVIDERS: Student in an Organized Health Care Education/Training Program; Emergency Provider Emergency Medicine; PCP Family Medicine
DX: K81.0 Acute cholecystitis (principal)
CPT/HCPCS: 36415; 74177; 76705; 80048; 80076; 81001; 82150; 83690; 84484; 85007; 85027; 87086; 93005; 96361; 96365; 96367; 96375; 99285; J0696; J1836; J2270; J2405; Q9967

== ENCOUNTER 2025-07-01 08:41 | Outpatient (OUT) | payer MEDICARE, OTHER, SELFPAY ==
--- OUTSIDE RECORDS SUMMARY | 2012-08-08 02:45 | XMS_ITS | Continuity of Care Document ---
Author Organization [employer] [facility] Address [address] [place] [address] [place] [address] Phone Care Team Providers Care Fork Truck Operator Name Role Phone Theo Palacios MD Unavailable Unavailable Procedures Procedure Date UPPR GI ENDOSCOPY, DIAGNOSIS Advance Directives Directive Yes / No Effective Date File Name No Information Encounters Encounter Description Practice Location Reason(s) For Visit Diagnoses Date Provider Encounter Disposition [facility] [employer] [facility], [address] [place] [address], [id number], tel:[phone] [facility] OP No Information Suzanne Venegas. [address] [place] [address], [id number], [place]. tel:[phone] [employer] [facility], [address] [place] [address], [id number], [place] tel:[phone] [facility] No Information Suzanne Venegas. [address] [place] [address], [id number], [place]. tel:[phone] [employer] [facility], [address] [place] [address], [id number], [place] tel:[phone] [facility] No Information Suzanne Venegas. [address] [place] [address], [id number], [place]. tel:[phone] Family History Family Member Type Diagnosis Age At Onset No Information Payers Payer name Insurance type Identifiers Authorization(s) Carmen Aguirre CI ID: [id number] Name: Coverage Status Eligibility Check on: [id number] ip to Subscriber: [employer] Address: [id number], [place], [place], [id number] Phone: [phone] Social History Type Description Quantity Date Captured Comments Sex Female Smoking Status No Information Current Gender Female (finding) Chief Complaint And Reason For Visit No Information History Of Present Illness Encounter Date Complaint History Of Prese nt Illness No Information Functional Status Date Description Comments No Information Instructions Date Instruction Additional Infor mation No Information Assessments Type Assessment Date No Information
--- OUTSIDE RECORDS SUMMARY | 2025-06-24 08:18 | XMS_ITS | Continuity of Care Document ---
Author Organization [facility] Address [address] [place] [address] Phone Care Team Providers Care Imaging Nurse Name Role Phone Latrell Jack MD Primary Care Provider [phone] Latrell Jack MD Attending Provider Elmer Suh DO Attending Provider [phone] Sandra Arcos APRN Attending Provider [phone] Erik Kim MD Attending Provider Dallin Morillo MD Attending Provider Rahul Perea DO Attending Provider Willy Palencia MD Admit Provider Fernando Estrada DO Other Provider Robbin José MD Other Provider [phone] Warren Gordon DO Other Provider Kyler Martin MD Attending Provider Care Teams Patient Care Team Team Status: Active Member Role/Relationship Status Dates Latrell Jack MD Primary Care Provider Active Visit Care Team Team Status: Inactive Member Role/Relationship Status Dates Latrell Jack MD Primary Care Provider Active S tart: April 10, 2025 End: April 10, 2025[facility] Radha Jackending ProviderActiveStart: April 10, 2025 End: [...] tart: April 29, 2025 End: April 29, 2025Radha Cavanaughending ProviderActiveStart: April 29, 2025 End: April 29, [...] Provider Active S tart: May 27, 2025 Erik Kim MDAttending ProviderActiveStart: May 27, 2025 Visit Care Team Team Status: Inactive Member Role/Relationship Status Dates Latrell Jack MD Primary Care Provider Active S tart: June 19, 2025 End: June 19, 2025Danish Coatsending ProviderActiveStart: June 19, 2025 End: June 19, 2025 Visit Care Team Team Status: Inactive Member Role/Relationship Status Dates Latrell Jack MD Primary Care Provider Active S tart: June 19, 2025 End: June 19, 2025Radha Allenending ProviderActiveStart: June 19, 2025 End: June 19, 2025 Visit Care Team Team Status: Active Member Role/Relationship Status Dates Latrell Jack MD Primary Care Provider Active S tart: June 20, 2025 Fara Mcmahon ProviderActiveStart: June 20, 2025 Visit Care Team Team Status: Inactive Member Role/Relationship Status Dates Rahul Perea DO Attending Provider Active S tart: June 20, 2025 End: June 20, 2025 Visit Care Team Team Status: Inactive Member Role/Relationship Status Dates Latrell Jack MD Primary Care Provider Active S tart: June 21, 2025 End: June 24, 2025EmBabs Eastman ProviderActiveStart: June 21, 2025 End: June 24, 2025FrRoc Petersen ProviderActiveStart: June 21, 2025 End: June 24Gabe Hutchinson ProviderActiveStart: June 21, 2025 End: June 24, 2025Roc Soto ProviderActiveStart: June 21, 2025 End: June 24, 2025FirRadha Aguileraending ProviderActiveStart: June 21, 2025 End: June 24, 2025 Chief Complaint and Reason for Visit Chief Complaint Admit Date Hospital FollowUp [place] April 10, 2025 11:27am [facility] CONSULT [facility] JACK LT SHOULDER PAIN WX [facility] April 24, 2025 10:39am Established Patient April 29, 2025 1 :07pm Follow up 3 month May 08, 2025 1 2:27pm May 27, 2025 2:30pm [facility] 8 WEEKS June 19, 2025 11:06am Spinal stenosis, lumbar region with neur ogenic cla June 19, 2025 2:12pm colitis June 21, 2025 12:59am Reason for Visit Admit Date Dysfunction of left eustachian tube 2024 11:27am [...] Primary osteoarthritis of both knees Apr 1:07pm Memory loss May 08, 2025 1 2:27pm Primary insomnia May 08, 2025 1 2:27pm 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, 2025 1 2:27pm Obstructive sleep apnea syndrome May 08, 2025 12:27pm Impingement of left shoulder June 192024 11:06am Lumbar stenosis June 19, 2025 2:12pm Acute cholecystitis June 21, 2025 12:59am Calculus of gallbladder with acute nikolas cystitis June 21, 2025 12:59am Choledocholithiasis June 21, 2025 12:59am COPD (chronic obstructive pulmonary dise ase) June 21, 2025 12:59am Essential hypertension, benign June 21, 2025 12:59am EDWIN (obstructive sleep apnea) June 092024 12:59am Reason for Referral Type Reason(s) Provider Provider Contact Information P vider Address Start Date Call if needed.Primary osteoarthritis of left shoulder M19.012 - Primary osteoarthritis, left shoulderYou have been identified as at risk for mental health, drug and/or alcohol related problem.?? You are being referred to [facility] ??and will receive a call within 1 business day to discuss self-help and treatment services in the community.[facility] LineWork Phone: allilian Cárdenas MDWork Phone: [phone] [facility] [address] [place] [address]Ckhz if needed.Latrell Jack MDWork Phone: [phone] [place] [place] [address]R05.012 - Primary osteoarthritis, left shoulderDetermined by PatientOctober 2024 Health Concerns Concerns Start Date A [facility] screening has identified you as FRAIL or AT RISK FOR FRAILTY. This puts you at a higher risk for infection, illness, falls, and other injuries. Here are four ways to help you reduce your risk of frailty: 1. IDENTIFY EARLY SIGNS OF FRAILTY ??? Discuss contributing factors and concerns with your doctor 2. BE ACTIVE ??? Walking and light strengthening exercises will help reduce weakness 3. EAT WELL ??? Aim for three healthy meals a day that are high in protein 4. THINK POSITIVE ??? Keep your mind active by being sociable and continuing to learn References: Stay Strong: Four Ways to Beat the Frailty Risk https://www.[facility].org/health/vjrodgdh-uci-mnblggqfnw/oclw-qtogff-gjmm- dijm-lu-ovye-the-fra ilty-risk Allergies, Adverse Reactions, Alerts Allergen Type Severity Reaction Last Updated Verified Status No Known Allergies Allergy Unknown June 19, 2025 2:31pmYesActive Social History Smoking Status Status Start Date End Date Date of Observa tion Ex-smoker (finding) June 21, 2025 1:35pm Observation Status Observation Response Date of Response Legal Sex Female (finding) [facility] 1950 Social History Assessments Assessment Value Date Recorded SDOH Follow up June 24, 2025 11:24amQuestionAnswerDate RecordedHas the SDOH screening changed since admission?NDecember 2024 11:24am Family History Relationship Condition Age at Onset Recorded Date/T ele father Malignant neoplasm Unknown motherMyocardial infarctionUnknown Problems Active Problems Problem Diagnosis/Recorded Date Onset [...] knees April 09, 2025 12:20pm Unknown Active Choledocholithiasis June 23, 2025 9:04am Unknown Active Essential hypertension, benign April 09, 2025 12:18 pm Unknown Active Dyslipidemia April 09, 2025 12:18pm Unknown Ac tive Memory loss February 03, 2025 3:47pm Unknown Activ e Anxiety February 03, 2025 3:47pm Unknown Activ e Senile dementia April 09, 2025 12:20pm Unknown Active TIA (transient ischemic attack) April 09, 2025 12:2 0pm Unknown Active 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, 2025 3:47pm Unknown Act owen Former smoker December 12, 2024 6:07pm Unknown [...] April 09, 2025 12:20pm Unknown Ac tive Acute cholecystitis June 21, 2025 2:19am Unknown Active Calculus of gallbladder with acute cholecystitis June 21, 2025 1:34pm Unknown Active Osteopenia of lumbar spine April 09, 2025 [...] Complies with drug therapyFluticasone Propionate 50 mcg/actuation spray,rztkffnosdPfdtanihviwl4UCZNHMGEXIJWBSYCwkvu103Xfpbelro 2024 12:55pm June 19, 2025 2:32pmLosartan 100 mg ifejtpZnrcgk866IZPAHxxnw090Myalaowo 2024 10:09amComplies with drug therapyFluticasone Propionate 50 mcg/actuation spray,hiczbdksyxOhphje1DAQXWSCVKVGENGIKayvuNskezmqt 2024 12:00amComplies with drug therapyAcetaminophen (Tylenol) 325 mg WonufyBfokul058 MGPOEvery 6 hours as needed for Pain Scale 1 - 3 or gvitg95Pbrxqcwa 2024 12:00amUnknownOxycodone 5 mg NugrudPuerlh5EODXAnpjz 6 hours as needed for Pain Scale 4 - 99380Yievtqyz ute cholecystitis Common bile duct calculus Acute cholecystitis Calculus of bile duct without cholangitis or cholecystitis without obstruction UnknownAtorvastatin 40 mg toetvfNtlzmw29HWIWRhcojNcul 2024 11:00pmComplies with drug therapyDonepezil 10 mg gzteakTogdpcwlxfza02PRXMRvshjdyZfgl 2024 11:00pmOctober 2024 8:36amLosartan 50 mg uafokiHlpbogxdqtxo68LEECZyplu dailyJune 2024 11:00pmJuly 2024 2:55pmZolpidem 10 mg tablet Zzyakbburrkg44RSSCOvtnyqf as needed for sleepJune 2024 11:00pmOctober 2024 10:48amZonisamide 50 mg glowynfEcbsesynyfoe71FWJEFxjqo dailyJune 2024 11:00pmOctober 2024 12:42pmFluticasone Propionate 50 mcg/actuation spray,kwwpihztyhBgleroztnwxi2DLOYXLSBYGYVCEXBvmdoPjvh 2024 11:00pmDecember 2024 12:55pmMethocarbamol 750 mg hfzqdyHbdgqtqmpckr968RYLHNvsv times daily as needed for painJune 2024 11:00pmJuly 2024 2:55pmTiotropium [place] (Spiriva With Handihaler) 18 mcg capsule, w/inhalation seupbeJypjpa5LEP INHALATIONDailyJune 2024 11:00pmComplies with drug therapyMirtazapine 7.5 mg TabletDiscontinued7.5MGPODaily at aljiahf65913Ltrp 2024 11:00pmJuly 2024 2:55pmZonisamide 50 mg bdaocuwIchjtv798OFSXPqoosPpgpapk 2024 12:36pmComplies with drug therapyLosartan 50 mg dkjmyyUemimwxkfszn20QQHPVqdxe dailyJuly 2024 11:00pmOctober 2024 12:27pmMethocarbamol 500 mg tablet Cpmusriwrxho078JVEEie neededJuly 2024 11:00pmOctober 2024 12:31pm Famotidine 40 mg xsilzvSothfhnpacqr26ZKVVKxmagIekr 2024 11:00pmOctober 2024 12:42pmPantoprazole 40 mg tablet,delayed release (DR/EC)Ixlniqrxxxpi82 MGPODailyJuly 2024 11:00pmOctober 2024 12:22pmAspirin 81 mg tablet Wgpjou62UFQQSqausPbrx 2024 11:00pmComplies with drug therapyMirtazapine 15 mg rhhtfnQrdcad40WPSTCsklo at bedtimeJuly 2024 11:00pmComplies with drug therapyEszopiclone (Lunesta) 2 mg vraaezQxugke3MLJDYrnss at vxnvfuh41715Iwxn 2024 11:00pmPrimary insomnia Primary insomniaUnknownFamotidine 40 mg rxanyuWzacwzwulnkj43AUXQBzwyd daily April 09, 2025 12:27pmDecember 2024 1:54amLosartan 100 mg tablet Eanabxbgxwts949MTNAXocgkXssfoegnp 2024 11:00pmDecember 2024 10:09am Methocarbamol 750 mg mpgfyqYhfhcl395NNBHRzqqo times daily as needed for muscle spasmsSeptember 2024 11:00pmComplies with drug therapyAlbuterol Sulfate 2.5 mg /3 mL (0.083 %) solution for nebulizationActive2.5MGINHALATIONEvery 4 hours as neededSeptember 2024 11:00pmUnknownCalcium Carbonate (Calcium 600) 600 mg calcium (1,500 mg) efddpvAjlipg987HWCLZugva dailySeptember 2024 11:00pmUnknownDocusate Sodium 100 mg xkhcxxwEivnhdzbujwu464NYEHAyedd daily as neededSeptember 2024 11:00pmOctober 2024 10:47amMultivitamin,Tx- Minerals (Multi-Vitamin Hp/Minerals) dcxmpznIfdcxn0ZJORJUjfneUsjhidjqh 2024 11:00pmComplies with drug therapyCholecalciferol (Vitamin D3) 25 mcg (1,000 unit) cmxbxoZhtwvu54BKYJYGpricAgagzippy 2024 11:00pmComplies with drug therapyVitamin E Mixed 400 unit tubhrkAgcpho666AGWUZZQqdbyRfjdxzccf 2024 11:00pmUnknownEszopiclone (Lunesta) 3 mg hfwvjpBivoya7STWFMvhdz at uwgtivc98085 May 07, 2025 11:00pmPrimary insomnia Primary insomniaTake immediately before bed Due 05/14/2025omplies with drug therapyAmlodipine (Norvasc) 5 mg xpmpryQmpash7GB MHRsrox475Bqmbjhv 20th, 2025 11:00pmComplies with drug therapyTirzepatide (Weight Loss) (Zepbound) 2.5 mg/0.5 mL pen injectorActive2.5MGSUBCUTevery weekApril 28, 2025 11:00pmOn Hold: Resume on 07/08/25. for 4 weeksUnknown Immunizations Immunization Event Date Not Given Reason Dose Number Medical Orderly Lot Number Reason(s) Given Vaccine Information Statement (VIS) Detail Administration Location Fluzone TIV High-Dose 65YR+ June 24, 2025 [id number] [facility] Procedures Procedure Date Performed Status Urine Culture June 20, 2025 completed XR cholangiogram operative June 22, 2025 9 :27am completed OR Cholecystectomy Laparoscopic June 22, 025 8:00am completed Relevant Diagnostic Tests and/or Laboratory Data Laboratory Results Test Collection Date/Time Result Date/Time Result Interpretation Reference Range Result Comment Performing Site Lipase June 20, 2025 4:30pm June 20, 2025 4:30pm 25.0 U/L 16.0-77.0Amylase LevelDe2024 4:30pmDe2024 4:30pm18 U/L Below low igwxyx36-751Slbeuka/Globulin RatioDe2024 4:30pmDe2024 4:30pm0.9Anion GapJune 20, 2025 4:30pmDe2024 4:30pm14.2Dece2024 4:30pm14.2HematocritJune 20, 2025 4:30pm June 20, 2025 4:30pm38.8 %36.0-48.0Urine Culture ReflexedD2024 5:23pmYES-FRMCTroponin I High SensitivityJune 20, 2025 7:20pmJune 20, 2025 7:20pm9.1 pg/mL4.0-51.3CUT-OFF POINTS HAVE BEEN ESTABLISHED BASED ON THE FOURTHUNIVERSAL DEFINITION OF MYOCARDIAL INFARCTION. THE UPPERREFERENCE LIMIT (URL) OF TROPONIN, DEFINED THE 99THPERCENTILE OF cTnI DISTRIBUTION IN A REFERENCE POPULATION,HAS BEEN CONFIRMED THE DECISION THRESHOLD FOR MIDIAGNOSIS.99TH PERCENTILE = 51.4 PG/MLNOTE: HIGH-SENSITIVITY TROPONIN ASSAY IS NOT INTENDED TO BEUSED IN ISOLATION BUT SHOULD BE INTERPRETED IN CONJUNCTIONWITH OTHER DIAGNOSTIC AND CLINICAL INFORMATION.AlbuminJune 20, 2025 4:30pm June 20, 2025 4:30pm3.9 g/dL3.4-5.0BUN/Creatinine RatioJune 20, 2025 4:30pmJune 20, 2025 4:30pm16.2Dece2024 4:30pm16.2Hemoglobin June 20, 2025 4:30pmJune 20, 2025 4:30pm13.8 g/dL12.0-16.0Urine Other Cast2024 5:23pmNONE SEEN #/LPFNONE SEENAlkaline PhosphataseJune 20, 2025 4:30pmJune 20, 2025 4:95yh661 U/LAbove high ppysmz35-122Zrwys Urea NitrogenJune 20, 2025 4:30pmJune 20, 2025 4:30pm16.0 mg/dL7.0-18.0June 20, 2025 4:30pm16.0 mg/dL7.0-18.0Mean Corpuscular HemoglobinJune 20, 2025 4:30pmDe2024 4:30pm32.4 pg26.7-34.0Urine Other CrystalsJune 20, 2025 5:23pmNone Seen #/HPFNone SeenAlanine Aminotransferase (ALT/SGPT)June 20, 2025 4:30pmDecemb2024 4:08uj210 U/LAbove high -28Xsybilj LevelJune 20, 2025 4:30pm June 20, 2025 4:30pm9.5 mg/dL8.5-10.1Dece2024 4:30pm9.5 mg/dL 8.5-10.1Mean Corpuscular Hemoglobin ConcentJune 20, 2025 4:30pmDecemb2024 4:30pm35.6 g/dLAbove high rdmomq58.9-35.2Urine Bacteriace2024 5:23pmTRACE #/HPFAbnormal (applies to non-numeric results)NONE SEEN Aspartate Amino Transf (AST/SGOT)June 20, 2025 4:30pmDece2024 4:70gl176 U/LAbove high -86Cctedxou LevelJune 20, 2025 4:30pm June 20, 2025 4:08zw904 mmol/S27-484TfxqdadaJune 20, 2025 4:73wx263 mmol/L 98-107Mean Corpuscular VolumeJune 20, 2025 4:30pmDece2024 4:30pm91.1 fL81.0-99.0Urine BilirubinDece2024 5:23pmNEGATIVENEGATIVE Direct BilirubinJune 20, 2025 4:30pmDecemb2024 4:30pm0.5 mg/dL Above high normal0.0-0.2Carbon Dioxide LevelJune 20, 2025 4:30pmDecemb2024 4:30pm21.5 mmol/L21.0-32.0De2024 4:30pm21.5 mmol/L 21.0-32.0Mean Platelet VolumeDece2024 4:30pmDecemb2024 4:30pm9.9 fL9.5-13.5Urine Occult Bloodce2024 5:23pmNEGATIVENEGATIVE GlobulinDece2024 4:30pmDecemb2024 4:30pm4.5 g/dLCreatinine June 20, 2025 4:30pmDece2024 4:30pm0.99 mg/dL0.55-1.02De2024 4:30pm0.99 mg/dL0.55-1.02Platelet CountJune 20, 2025 4:30pm June 20, 2025 4:55gh167 10 3/sV804-171Vwbmg AppearanceJune 20, 2025 5:23pmCLEARCLEARTotal BilirubinJune 20, 2025 4:30pmDece2024 4:30pm1.0 mg/dL0.2-1.0Estimated GFR ()June 20, 2025 4:30pm June 20, 2025 4:30pm>60>=60 mL/min/1.73m 2D2024 4:30pm>60 >=60 mL/min/1.73m 2Red Blood CountJune 20, 2025 4:30pmDece2024 4:30pm4.26 10 6/uL4.20-5.40Urine ColorJune 20, 2025 5:23pmYELLOWYELLOW Total ProteinJune 20, 2025 4:30pmDece2024 4:30pm8.4 g/dLAbove high normal6.4-8.2Estimated GFR (Non- AmericanDe2024 4:30pm June 20, 2025 4:01fz90Xpvjl low normal>=60 mL/min/1.73m 2D2024 4:31nh38Lsboe low normal>=60 mL/min/1.73m 2Red Cell Distribution Width June 20, 2025 4:30pmDe2024 4:30pm13.4 %11.0-15.0Urine Glucose (UA)June 20, 2025 5:23pmNEGATIVE mg/dLNEGATIVEGlucose LevelJune 20, 2025 4:30pmDe2024 4:91eg006 mg/dLAbove high ozcycn49-087Uynkpgou 12th, 2025 4:48qm124 mg/dLAbove high euoffe52-192Kyxoofcso White Blood Count June 20, 2025 4:30pmDece2024 4:30pm7.3 10 3/uL4.0-11.0Urine KetonesD2024 5:23pmNEGATIVE mg/dLNEGATIVEPotassium LevelJune 20, 2025 4:30pmDecemb2024 4:30pm3.7 mmol/L3.5-5.1Dece2024 4:30pm3.7 mmol/L3.5-5.1Urine Leukocyte EsteraseJune 20, 2025 5:23pmTRACE Abnormal (applies to non-numeric results)NEGATIVESodium LevelDe2024 4:30pmDece2024 4:31so183 mmol/D119-460Fzedkuow 12th, 2025 4:66mv104 mmol/U458-227Wdrua Mucusce2024 5:23pmSMALLAbnormal (applies to non- numeric results)NONE SEENUrine NitriteJune 20, 2025 5:23pmNEGATIVENEGATIVE Urine pHD2024 5:23pm7.05.0-9.0Urine ProteinDece2024 5:23pmTRACE mg/dLNEG/TRACEUrine RBCDe2024 5:65gh6-8 #/HPF0-2Urine Specific GravityJune 20, 2025 5:23pm1.0101.005-1.025Urine Squamous Epithelial CellsDece2024 5:23pmFEW #/LPFAbnormal (applies to non- numeric results)NONE/RAREUrine UrobilinogenD2024 5:23pm0.2 EU/dL 0.2-1.0Urine WBCDece2024 5:43sr8-16 #/HPFAbnormal (applies to non- numeric results)NONE SEENCorrected White Blood CountJune 24, 2025 7:48am June 24, 2025 8:54am6.0 10*3/uL3.8-11.6FM[facility] [id number] [address] [facility] [address]Vdfrplesadg WBC CountDecember 2024 7:48amDecember 2024 8:54am6.0 10*3/uL3.8-11.6FM[facility] [id number] [address] [facility] 12794Srx Blood CountDecember 2024 7:48amDecember 2024 8:54am3.59 10*6/uLBelow low normal3.60-5.00[facility] [id number] [address] [facility] [address]BayxlvlqneFvzpfsvf 2024 7:48amDecember 2024 8:54am 11.6 g/dLBelow low ioflzo32.8-15.4FM[facility] [id number] [address] [place] [address] 24704GqdyshwuskZgptmbdi 2024 7:48amDecember 2024 8:54am 33.0 %Below low .0-46.4FMary [facility] [id number] [address] [place] [address] 78758Atxq Corpuscular VolumeDecember 2024 7:48amDecember 2024 8:54am91.8 tH24-721KjcxjxyseAdams County Hospital [facility] [id number] [address] [place] [address] 13163Cdfx Corpuscular HemoglobinDecember 2024 7:48amDecember 2024 8:54am32.4 pg24.7-34.3FMary [facility] [id number] [address] [place] [address] 90450Wogi Corpuscular Hemoglobin ConcentDecember 2024 7:48am June 24, 2025 8:54am35.3 g/dLAbove high hqibtw82.0-35.0[facility] [id number] [address] [place] [address] 47956Zxp Cell Distribution Widthce2024 7:48amJune 24, 2025 8:54am14.5 %11.9-15.3FM[facility] [id number] [address] [facility] 46[address]Xrkcdrgo CountDece2024 7:48amJune 24, 2025 8:21sn475 10*3/lA338-495ZmodohtsoAdams [facility] Hospital [facility] [id number] [address] [facility] 95165Potk Platelet VolumeDece2024 7:48amDe2024 8:54am8.6 fL6.3-10.7FM[facility] [id number] [address] [facility] [address]Fchzfiamxip (%) (Auto)June 24, 2025 7:48amJune 24, 2025 8:54am65.6 %.[facility] [id number] [address] [facility] 7[address]Jxmtpnfyqvh (%) (Auto)June 24, 2025 7:48amDe2024 8:54am23.8 %.[facility] [id number] [address] [facility] [address]Iwrxipith (%) (Auto)June 24, 2025 7:48amDe2024 8:54am9.4 %.[facility] [id number] [address] [facility] [address]Wwvhnxseiho (%) (Auto)June 24, 2025 7:48amDece2024 8:54am0.7 %.[facility] [id number] [address] [facility] 85[address]Aqmyisykv (%) (Auto)June 24, 2025 7:48amDecemb2024 8:54am0.5 %.[facility] [id number] [address] [facility] 274[address]Uxdjrmisi RBC Relative Count (auto)June 24, 2025 7:48am June 24, 2025 8:54am0.1 /100{WBC}0-0.5FM[facility] [id number] [address] [place] [address] 28772Wxoxbcyomfz # (Auto)June 24, 2025 7:48amDecember 2024 8:54am3.9 10*3/uL1.8-7.7FM[facility] [id number] [address] [place] [address] 07160Vrnerzlncyw # (Auto)June 24, 2025 7:48amDecember 2024 8:54am1.4 10*3/uL1.00-4.8[facility] [id number] [address] [place] [address] 30397Ntmpapboa # (Auto)June 24, 2025 7:48amDecember 2024 8:54am0.6 10*3/uL0.0-0.8[facility] [id number] [address] [facility] [address]Jhuiwcnrers # (Auto)June 24, 2025 7:48amDecember 2024 8:54am0.0 10*3/uL0.0-0.45[facility] [id number] [address] [place] [address] 65527Ozvpcjelp # (Auto)June 24, 2025 7:48amDecember 2024 8:54am0.0 10*3/uL0.0-0.2FM[facility] [id number] [address] [place] [address] 18598Vtrjqnbsrrp TimeDece2024 5:20amDe2024 6:10am12.9 s9.0-12.9A hematocrit value greater than 55% may lead to inaccurate results in coagulation testing. Patientshaving hematocrit values >55% require a special collection tube for coagulation studies. Please contact the laboratory at [phone] for redraw instructions.[facility] [id number] [address] [facility] [address]Iwvxpmwif Time International RatioDe2024 5:20am June 21, 2025 6:10am1.1INR Therapeutic Range A) Pre- and Peroperative OAT started two weeks before surgery. NOT HIP SURGERY: 1.5 - 2.5 HIP SURGERY: 2 - 3B) Primary and secondary prevention of venous THROMBOSIS: 2 - 3C) Active venous thrombosis, pulmonary embolismand prevention of recurrent venous thrombosis: 2 - 3D) Prevention of arterial thromboembolismincluding patients with mechanical heart valves: 3 - 4.5FM[facility] [id number] [address] [facility] [address]75[address]Xeoofpbit Partial Thromboplast TimeDece2024 5:20am June 21, 2025 6:10am26.4 s25.1-36.5A hematocrit value greater than 55% may lead to inaccurate results in coagulation testing. Patientshaving hematocrit values >55% require a special collection tube for coagulation studies. Please c ontact the laboratory at [phone] for redraw instructions.[facility] [id number] [address] [facility] 29[address]Hpggjyr LevelDece2024 7:48amDecember 2024 9:53vr483 mg/dLAbove high jmxalx25-265MNX recommended reference rangeRandom Glucose Reference Range is dependent on time and content of last meal. Glucose of more than 200 mg/dL in a nonstressed, ambulatory subject supports the diagnosisof Diabetes Mellitus.[facility] [id number] [address] [facility] 839[address]Ivzjk Urea NitrogenDece2024 7:48amDece2024 9:15am21 mg/dL7-25[facility] [id number] [address] [place] [address] 93327CvcdcjrqxePfqjeqtu 16th, 2025 7:48amDece2024 9:15am 0.78 mg/dL0.60-1.20[facility] [id number] [address] [place] [address] 32206Zzeqtwtlw GFR (CKD-EPI)June 24, 2025 7:48amDece2024 9:15am> 60.0 mL/MinAdams [facility] Hospital Ctr [id number] [address] [place] [address] 95151Izcvad LevelDecember 2024 7:48amDecember 2024 9:39jz276 mmol/F078-004DsgurzntrAdams County Hospital Ctr [id number] [address] [facility] [address]Bxoyjwumj LevelDecember 2024 7:48amDecember 2024 9:15am3.4 mmol/LBelow low normal3.5-5.1FM[facility] [id number] [address] [facility] 29662Hurplqdf LevelDecember 2024 7:48amDecember 2024 9:17nq832 mmol/LAbove high ubukwf01-672LbxoylqkiAdams County Hospital Ctr [id number] [address] [facility] [address]75[address]Ruibme Dioxide LevelDecember 2024 7:48amDecember 2024 9:15am23.7 mmol/L21.0-31.0[facility] [id number] [address] [facility] 23018Qbnbt GapDecember 2024 7:48amDecember 2024 9:15am 11.7 mEq/L6.0-15.0[facility] [id number] [address] [facility] 68992Mfzdhgq LevelDecember 2024 7:48amDecember 2024 9:15am8.6 mg/dL8.6-10.3FM[facility] [id number] [address] [facility] [address]Sjtdcjvus LevelDecember 2024 5:20amDecember 2024 6:14am1.8 mg/dLBelow low normal1.9-2.7FM[facility] [id number] [address] [facility] 26889Qrkmi ProteinDecember 2024 7:48amDecember 2024 9:15am6.6 g/dL6.4-8.9[facility] [id number] [address] [facility] 42993LxaionzGufmbhzi 2024 7:48amDecember 2024 9:15am3.3 g/dLBelow low normal3.5-5.7FM[facility] [id number] [address] [facility] 19368BeorajazAcddszqf 2024 7:48amDecember 2024 9:15am3.3 g/dLAdams County Hospital Ctr [id number] [address] [facility] 98358Vmmvwnw/Globulin RatioDecember 2024 7:48amDecember 2024 9:15am1.0[facility] [id number] [address] [facility] [address]Rddmb BilirubinDecember 2024 7:48amDecember 2024 9:15am1.2 mg/dLAbove high normal0.3-1.0[facility] [id number] [address] [facility] [address]Ndymvp BilirubinDecember 2024 9:22amDecember 2024 10:06am1.00 mg/dLAbove high normal0.03-0.18FMary [facility] [id number] [address] [facility] [address]Abifetfk BilirubinDecember 2024 9:22amDecember 2024 10:06am0.7 mg/dLAd[facility] [id number] [address] [facility] [id number] Amino Transf (AST/SGOT)June 24, 2025 7:48am June 24, 2025 9:61st003 U/LAbove high ojnfny18-32DndszyqjzAd[facility] [id number] [address] [facility] [address]Nwxzsen Aminotransferase (ALT/SGPT)June 24, 2025 7:48am June 24, 2025 9:73my844 U/LAbove high normal7-52[facility] [id number] [address] [facility] [address]Wtdybvde PhosphataseDecember 2024 7:48amDecember 2024 9:14sa581 U/LAbove high kxxgyu63-219RqejelobqAd[facility] [id number] [address] [place] [address] 54173Tssxpeam Creatinine Clearance (ChemDecember 2024 7:48am June 24, 2025 9:15am73.58[facility] [id number] [address] [place] [address]62 Microbiology Results Procedure Source Result Collection Date/Time Result Date/Time Result Comment Performing Site Urine Culture Clean Void Midstream 2 Days Decemb er 2024 5:23pm June 23, 2025 11:13am [facility] [id number] [address] [place] [address] Diagnostic Imaging Reports Author Claude Bahena [facility] Date/TimeDecember 2024 2:31pm [facility] Main [place] [address] [place] [address] XRay Report Signed Patient: Shey Obrien MR#: [id number] : 1950 Acct:[id number] Age/Sex: 74 / F ADM Date: 5 Loc: Room: [address] [place] [address] Type: ADM IN Attending Dr: Candice Lanier MD Copies to: MD Candice Rivera MD~ Ordering Provider: Joel Kaufman MD Date of Service: 06/22/25 XR/XR cholangiogram operative: Calculus of gallbladder with acute cholecystitis Intraoperative study. Reason for exam: Intraoperative cholangiogram Findings: 667 images were obtained intraoperatively. Multiple filling defects are seen involving the CBD suspicious for choledocholithiasis. Cumulative Air Kerma in mGy: 56.8 mGy XR/XR cholangiogram operative Impression: Choledocholithiasis. Impression dictated by: Claude Bahena Jr., D.OMichelle 06/23/2025 2:31 PM Dictation Location: [place] [address] Transcribed By: [facility] 06/23/25 1431 Dictated By: Claude Bahena Jr, DO 06/23/25 1430 Signed By: <Electronically signed by Claude Bahena Jr, DO in OV> 06/23/25 1431 Vital Signs Vital Reading Result Reference Range Collection Date/Time Height 64 [in_i] April 10, 2025 10:23kwLamnik714.32 kgOct2024 10:46amBody Xgeptzzimcu12.1 [degF]97.6-99.0April 10, 2025 10:46amHeart Lnad915 /wgy72-268 April 10, 2025 10:46amRespiratory rate24 /icd79-78QqqinhgApril 10, 2025 10:46am Oxygen saturation by Pulse itbzsnxc31 %95-100April 10, 2025 10:46amBP Ugsnxgri331 mm[Hg]100-140April 10, 2025 10:46amBP Odtohluqa96 mm[Hg]60-100 April 10, 2025 10:46amBMI (Body Mass Index)39.4 kg/e5XehcwgmApril 10, 2025 10:69gnKedijz49 [in_i]April 24, 2025 10:72pxNdtnhi521.00 kgApril 24, 2025 10:06amBMI (Body Mass Index)39.3 kg/e8QnknadfApril 24, 2025 10:42zgKquasg54 [in_i]April 29, 2025 12:76ydBbpstd476.96 kgOctober 2024 12:20pmBody Wpnorlrspge69.1 [degF]97.6-99.0April 29, 2025 12:20pmHeart Rate96 /pjj71-693 April 29, 2025 12:20pmRespiratory rate20 /eqz87-93OrtqogbApril 29, 2025 12:20pm Oxygen saturation by Pulse qwswnfja82 %95-100April 29, 2025 12:20pmBP Ybykzfrg713 mm[Hg]100-140April 29, 2025 12:20pmBP Ojicaspun89 mm[Hg]60-100 April 29, 2025 12:20pmBMI (Body Mass Index)38.9 kg/e0JuiudyxApril 29, 2025 12:42luFygyox71 [in_i]May 08, 2025 11:64tzJzdlus343.96 kgOctober 2024 11:46amHeart Rate65 /ina64-392EpnkrnhMay 08, 2025 11:46amBP Cjqmqqso868 mm[Hg]100-140May 08, 2025 11:46amBP Ujlfifeog40 mm[Hg]60-100October 2024 11:46amBMI (Body Mass Index)38.9 kg/b6Kqgfuzc 2024 11:53huQqxalt79 [in_i]June 19, 2025 2:59pqVwlddt688.00 kgDecember 2024 2:30pmBMI (Body Mass Index)38.9 kg/b7Mqbnjdcu 2024 2:83sqXtpjxk15 [in_i]June 23, 2025 2:84eyOvjoue012.00 kgDecember 2024 5:57amBody Nsaebkjikjl76.5 [degF]97.6-99.0[facility] 2024 11:36amHeart Rate69 /zyu65-597Yjmminmv 2024 11:36amRespiratory rate16 /prr22-40Gmxjvoaj 2024 11:36amOxygen saturation by Pulse cbtbqxfi51 %95-100[facility] 2024 11:36amBP Lvgyugca581 mm[Hg]100-140Deceer 2024 11:36amBP Rfjapqasf75 mm[Hg]60-100De[facility] 2024 11:36amInhaled oxygen kmzqxdvqkomkw70 %June 21, 2025 4:23am Inhaled oxygen flow rate2 L/minDeceer 2024 11:54pm Advance Directives Advance Directive Response Recorded Date/ Time Advance Directives No December 17 1:30pm Insurance Providers Guarantor Shey Obrien Address [address] [address]Contact Info.Home Phone: Coverage Status Update:2025 Payer Group Member ID Coverage Type Subscriber Relationship to Subscriber Effective Date Expiration Date Medicare [id number] Lee Mchenry Id: [id number] [address] [address] Home Phone: Medicare [employer] [id number] Lee Mchenry Id: [id number] [address] [address] Home Phone: [employer] [facility] Id: [id number] Lee Mchenry Id: [id number] [address] [id number] Home Phone: SelfRegular Insurance [id number] Lee Mchenry Id: [id number] [address] [id number] Home Phone: Self Encounters Encounter Location(s) Arrival/Admit Date Discharge/Departure Date Discharge/Departure Disposition Provider(s) Departed Physician/ Provider Office Visit -[facility] [place] April 10, 2025 11:27am April 10, 2025 12:14pm Discharged to home care or self care (routine discharge) Latrell Jack MD Departed Physician/ Provider Office Visit -[facility] Orthopedics [place] April 24, 2025 10:39am April 24, 2025 11:35am Discharged to home care or self care (routine discharge) Elmer Suh DO Departed Physician/ Provider Office Visit -[facility] [place] April 29, 2025 1:07pm April 29, 2025 1:42pm Discharged to home care or self care (routine discharge) Latrell Jack MD Departed Physician/ Provider Office Visit -[facility] Neurology [place] May 08, 2025 12:27pm May 08, 2025 1:11pm Discharged to home care or self care (routine discharge) Hakeem Srinivasan APRN Registered [facility] May 27, 2025 2:30pm WING Romeroeparted Physician/Provider Office Visit-[facility] Orthopedics [facility] 2024 11:06amDece2024 11:18am Discharged to home care or self care (routine discharge)Elmer Suh DO Departed Physician/Provider Office Visit-[facility] 2024 2:12pmDeceer 2024 2:53pmDischarged to home care or self care (routine discharge)Dallin Morillo MDNon-patient / Wqa[facility]qbtoo[facility] 2024 4:30pmAlfredo Salinas DODeparted Referred- [facility] 20[facility] 5:23pmDecehu [facility] 2024 5:24pm Discharged to home care or self care (routine discharge)Alfredo Salinas DO Discharged Inpatient-[address] [place] [address] 2024 12:59am[facility] 2024 1:04pmDischarged to home care or self care (routine discharge)Kyler Martin MD Recent Diagnosis Onset Date Admit Date Dysfunction of left eustachian tube Unknown April 10, 2025 11:27am Essential hypertension, benign Unknown O ctober 2024 11:27am Primary osteoarthritis, left shoulder Unknown April 10, 2025 11:27am Tinnitus Unknown April 10 11:27am Impingement of left shoulder Unknown Apr eleni2024 10:39am Class 2 severe obesity due t o excess calories with serious comorbidity in adult Unknown April 29, 2025 1 :07pm COPD (chronic obstructive pulmonary disease) Unk nown April 29, 2025 1:07pm Essential hypertension, benign Unknown O ctober 2024 1:07pm GERD without esophagitis Unknown April 29, 2025 1:07pm EDWIN (obstructive sleep apnea) Unknown 2024 1:07pm Primary insomnia Unknown April 29, 2 025 1:07pm Primary osteoarthritis of both knees Unknown April 29, 2025 1:07pm Memory loss Unknown May 08 12:27pm Primary insomnia Unknown May 08, 2 025 12:27pm Pseudodementia Unknown May 08 12:27pm Obstructive sleep apnea syndrome Unknown May 08, 2025 12:27pm Impingement of left shoulder Unknown Jun 11:06am Lumbar stenosis Unknown June 19, 2 025 2:12pm Acute cholecystitis Unknown June 12:59am Calculus of gallbladder with acute cholecystitis Unknown June 21, 2025 12:59am Choledocholithiasis Unknown June 12:59am COPD (chronic obstructive pulmonary disease) Unk nown June 21, 2025 12:59am Essential hypertension, benign Unknown D ecember 2024 12:59am EDWIN (obstructive sleep apnea) Unknown De cember 2024 12:59am Functional Status Observation Response Date Recorded Dressing Patient at Baseline June 1:04pm Eating Patient at Baseline June 1:04pm Bathing Patient at Baseline June 1:04pm Disability Status Patient at Baseline June 092024 1:04pm Functional Status Comment June 24, 2025 1:04pm Mental Status Observation Response Date Recorded Cognitive Status Patient at Baseline June 242024 1:04pm Cognitive/Mental Status Assessments Assessments Diagnosis Onset Date Resolution Status Admit [...] shoulderacuteDecember 2024 11:06amLumbar stenosisacute June 19, 2025 2:12pmAcute cholecystitisacuteDecember 2024 12:59am Calculus of gallbladder with acute cholecystitisacuteDecember 2024 12:59am CholedocholithiasisacuteDecember 2024 12:59amCOPD (chronic obstructive pulmonary disease)acuteDecember 2024 12:59amEssential hypertension, benign acuteDecember 2024 12:59amOSA (obstructive sleep apnea)acuteDecember 2024 12:59am Plan of Treatment Author Latrell Jack [facility] 2024 11:20amContinued pain and degenerative changes on x-ray. Refer to ortho for possible injection. Continued symptoms and no improvement with treatment. Continue flonase and refer to ENT. Continued symptoms and no improvement with treatment. Continue flonase and refer to ENT. BP controlled and monitor PRN. Author Lizzie Little [facility] 2024 10:37amDiscussed with patient and company on [...] 8 weeks for reevaluation. Author Shae Rendon [facility] 2024 11:17amShe is slowly progressing. We will continue to treat this conservatively. We discussed continuing to do therapy exercises on her own at home. We discussed a repeat injection, at the appropriate time, if her symptoms worsen. She can continue to progress activity as tolerated. At this time, she can follow up as needed. Author Dallin Morillo [facility] 2024 3:11pmI independently reviewed the MRI of the lumbar spine and the plain x-ray and the report I also saw the MRI from 2023 which she has not significantly different she may have a little bit of plain x-ray malalignment at L4-5 but is difficult to say she has moderate stenosis at L4-5. I am just not sure if the patient has neurogenic claudication. She looks profoundly deconditioned a lot of her complaints are back pain I am not certain if it has a lot of leg problems I am ordering a DEXA scan a 6 view x-ray of the lumbar spine I would like to see the patient back in the new year she has been coached on how to look at her legs how much do they bother her is there truly neurogenic claudication present. Author Sandra Arcos [facility] HospitalAuthoredOctober 2024 12:75xu04-oekp-xey female with a long history of obstructive [...] amlodipine added. Previous old records Last MMSE 28/ EEG normal TSH B12 folic acid normal [...] new issues or questions. Author Latrell Jack [facility] HospitalAuthoredOctober 2024 12:48pmBP remains elevated and add [...] Future appointment information is unavailable Future Procedures Procedure Name Ordered Date Scheduled Date Admit Status Order June 21, 2025 1:38am De cember 2024 1:38am Discharge Order June 24, 2025 11:07am Dece mber 2024 11:07am Future Medications Future medication information is unavailable Patient Instructions Instruction Admit Date Oxycodone Cholecystectomy - Discharge instructions [facility] Pamphlet [facility] 12:59am Goals Acute Goals Author Authored Date Exhibit optimal tissue perfu celestino * Exhibits adequate oxygenation and ventilation * Exhibits adequate cardiac output * Regains stable cardiac rhythm * Maintains optimal activity level * [facility]aint[facility] 2024 1:17pmSkin integrity intact [facility] 2024 1:17pmMaintain/increase activity levels * Understands factors that may lead to activity intolerance * Helps perform self care activities * Maintains maximum range of motion * Increase/regain muscle mass and strength * Maintains VS WNL during activity * Maintain intact skin integrity Updated: 08/22/2022[facility] 2024 1:17pmFall Prevention 2022[facility] 2024 1:17pmExperience reduced anxiety * Identifies current stressors * Develops effective coping behaviors * Uses support services as appropriateMar[facility] 2024 1:17pmRemain free of complications [facility] 2024 1:17pmUnderstand preop/postop care/sensations * Verbalizes understanding of surgical procedure * Verbalizes understanding of sensations following surgery * Verbalizes understanding of post-op treatment planMet[facility] 2024 1:17pmReport pain at tolerable level * Uses pain scale appropriately * Identify options for pain control - Analgesics - Narcotics - Non-medication measuresMar[facility] Hospital 2024 1:17pmAbsence of imbalanced fluid volume s/s [facility] 2024 1:17pmAbsence of physical injury [facility] 2024 1:17pmAbsence of surgical site infection [facility] 2024 1:17pmExperience reduced anxiety * Identifies current stressors * Develops effective coping behaviors * Uses support services as appropriateMar[facility] 2024 1:17pmRemain free of complications [facility] 2024 1:17pmUnderstand preop/postop care/sensations * Verbalizes understanding of surgical procedure * Verbalizes understanding of sensations following surgery * Verbalizes understanding of post-op treatment planMar[facility] 2024 1:17pmReport pain at tolerable level * Uses pain scale appropriately * Identify options for pain control - Analgesics - Narcotics - Non-medication measuresMar[facility] 2024 1:17pmAbsence of imbalanced fluid volume s/s [facility] 2024 1:17pmAbsence of physical injury [facility] 2024 1:17pmAbsence of surgical site infection [facility] 2024 1:17pmAbsence of new skin breakdown [facility] 2024 1:17pmWound healing [facility] 2024 1:17pm Preferences Type Detail Treatment Intervention Code Status: Full Code Hospital Discharge Instructions Additional Instructions Continue use of CPAP as per chronic orders 1. No driving if taking narcotic pain medication. 2. No lifting more than 20 pounds for 2 weeks. 3. May shower. Consultation Note Author Robbin José [facility] HospitalNote Date/[facility] 2024 1:35pm [place] [address] General Surgery Consult Note Signed Patient: Shey Obrien MR#: [id number] : 1950 Acct:[id number] Age/Sex: 74 / F Adm Date: 5 Loc: 4N Room: 8B9664-2 Type: ADM IN Attending Dr: Joel Kaufman MD Copies to: MD Joel Cuba MD Marc Naderer, MD~ History of Present Illness Date of consult: 06/21/2025 Requesting/Attending Provider: Joel Kaufman MD History of present illness: The patient is a 74-year-old female who presents with about a 1-1/2-week historyof abdominal pain. She states the pain radiates from the middle of the upper abdomen across the right and left upper abdomen. Pain also radiates from the right upper abdomen down to the lower abdomen and right leg. Painwas fairly severe yesterday. Pain is better today. She did receive some pain medication. Patient has some nausea. Denies vomiting. She does not have much of an appetite. Patient presented to the emergency room at [place]. Imaging studiesshowed cholelithiasis as well as gallbladder wall thickening and ultrasound showed a positive Cueto sign. Previous abdominal surgery includes laparoscopic esophageal hernia repair done in [place] about ayear ago. Medical illnesses include COPD, sleep apnea. Patient is not on oxygen. She does use CPAP at night. Review of Systems Constitutional Constitutional: Denies fever(s) Cardiovascular Cardiovascular: Denies chest pain Respiratory Respiratory: Denies dyspnea Gastrointestinal Gastrointestinal: Reports abdominal pain, Reports nausea and Denies vomiting Neurologic Neurologic: Denies syncope [facility] Medical History (Updated 06/21/25 @ 13:34 by Robbin José MD) Memory loss Major depressive disorder, recurrent, moderate Anxiety Dyslipidemia Tinnitus Primary osteoarthritis of both knees Primary insomnia GERD without esophagitis EDWIN (obstructive sleep apnea) Acute cholecystitis Essential hypertension, benign Impingement of left shoulder Dysphagia Surgical History (Updated 06/21/25 @ 02:20 by Kely Vaughan APRN) History of repair of hiatal hernia 07/2024 History of esophagogastroduodenoscopy 07/2024 H/O lateral meniscus repair of right knee History of lateral meniscus repair of left knee History of ankle surgery Right, 2019, Right displaced fibular malleolus fracture open reduction and internal fixation, sub hardware removal History of oral surgery History of hernia repair Family History (Updated 06/21/25 @ 02:21 by Kely Vaughan APRN) Father Cancer lung Mother Myocardial infarction Social History Smoking Status: Former smoker Tobacco Type: cigarettes Substance Use Type: Alcohol (rarely) Social History Comments: Lives with niece and her boyfriend Allergies & Medications Medications and Allergies Allergies No Known Allergies Allergy (Verified 06/19/25 14:31) Home Medications atorvastatin 40 mg tablet 40 mg PO DAILY 12/12/24 [History Confirmed 06/21/25] tiotropium bromide 18 mcg capsule with inhalation device (Spiriva with HandiHaler) 1 cap inhalationDAILY 12/12/24 [History Confirmed 06/21/25] aspirin 81 mg tablet 81 mg PO DAILY 02/03/25 [History Confirmed 06/21/25] eszopiclone 2 mg tablet (Lunesta) 2 mg PO QHS 30 days #30 tabs 02/03/25 [Rx Confirmed 06/19/25] mirtazapine 15 mg tablet 15 mg PO QHS 02/03/25 [History Confirmed 06/21/25] albuterol sulfate 2.5 mg/3 mL (0.083 %) solution for nebulization 2.5 mg inhalation Q4HR PRN 04/09/25 [History Confirmed 06/19/25] calcium carbonate (Calcium 600) 600 mg PO BID 04/09/25 [History Confirmed 06/19/25] cholecalciferol (vitamin D3) 25 mcg (1,000 unit) tablet 25 mcg PO DAILY 04/09/25[History Confirmed 06/21/25] methocarbamol 750 mg tablet 750 mg PO TID PRN muscle spasms 04/09/25 [History Confirmed 06/21/25] multivitamin,tx-minerals (Multi-Vitamin HP/Minerals capsule) 1 cap PO DAILY 04/09/25 [History Confirmed 06/21/25] vitamin E mixed 400 unit tablet 400 unit PO DAILY 04/09/25 [History Confirmed 06/19/25] zonisamide 50 mg capsule 100 mg PO DAILY 04/09/25 [History Confirmed 06/21/25] donepezil 10 mg tablet 10 mg PO HS 30 days #30 tabs 04/23/25 [Rx Confirmed 06/21/25] amlodipine 5 mg tablet (Norvasc) 5 mg PO DAILY #30 tabs 04/29/25 [Rx Confirmed 06/21/25] tirzepatide (weight loss) 2.5 mg/0.5 mL subcutaneous pen injector (Zepbound) 2.5mg (0.5 mL) subcut QWEEK #2 mL 04/29/25 [Rx Confirmed 06/19/25] eszopiclone 3 mg tablet (Lunesta) 3 mg PO QHS 30 days #30 tabs 05/08/25 [Rx Confirmed 06/21/25] losartan 100 mg tablet 100 mg PO DAILY #30 tabs 06/19/25 [Rx Confirmed 06/21/25] fluticasone propionate 50 mcg/actuation nasal spray,suspension 2 spray intranasal DAILY 06/21/25 [History Confirmed 06/21/25] Active Medications Acetaminophen (Acetaminophen 325 Mg Tablet) 650 mg PO Q6HR PRN PRN Reason: Pain Scale 1 - 3 or fever Stop: 06/21/26 01:37 Amlodipine Besylate (Amlodipine 5 Mg Tablet) 5 mg PO DAILY ROBIN Stop: 06/22/26 08:59 Atorvastatin Calcium (Atorvastatin 40 Mg Tablet) 40 mg PO DAILY ROBIN Stop: 06/22/26 08:59 Donepezil HCl (Donepezil 10 Mg Tablet) 10 mg PO HS ROBIN Stop: 06/21/26 21:59 Heparin Sodium (Porcine) (Heparin 5,000 Unit/Ml Vial) 5,000 unit SUBCUT Q12HR ROBIN Stop: 06/21/26 08:59 Hydromorphone HCl (Hydromorphone 0.5 Mg/0.5 Ml Syringe) 0.5 mg IV-PUSH Q2H PRN PRN Reason: Pain Scale 8 - 10 Metronidazole (Flagyl) 500 mg in 100 mls @ 100 mls/hr IV Q8H [facility] Last Admin: 06/21/25 05:19 Dose: 100 mls/hr Lactated Ringer's (Lactated Ringers) 1,000 mls @ 75 mls/hr IV .[id number] [facility] Stop: 06/22/25 04:24 Last Admin: 06/21/25 02:26 Dose: 75 mls/hr Ceftriaxone Sodium (Rocephin) 2 gm in 50 mls @ 100 mls/hr IV Q24H [facility] Indocyanine Green (Indocyanine Green 25 Mg/10 Ml Vial) 1.25 mg IV-PUSH PREOP ONE Stop: 06/22/25 07:01 Labetalol HCl (Labetalol 100 Mg/20 Ml Vial) 10 mg IV-PUSH Q4H PRN PRN Reason: Hypertension Stop: 06/21/26 01:58 Losartan Potassium (Losartan 50 Mg Tablet) 100 mg PO DAILY [facility] Stop: 06/22/26 08:59 Melatonin (Melatonin 5 Mg Tablet) 5 mg PO QHS PRN PRN Reason: Insomnia Stop: 06/21/26 01:37 Mirtazapine (Mirtazapine 15 Mg Tablet) 15 mg PO QHS [facility] Stop: 06/21/26 21:59 Ondansetron HCl (Ondansetron 4 Mg/2 Ml Vial) 4 mg IV-PUSH Q6H PRN PRN Reason: Nausea And Vomiting Stop: 06/21/26 01:37 Oxycodone HCl (Oxycodone Ir 5 Mg Tablet) 5 mg PO Q6HR PRN PRN Reason: Pain Scale 4 - 7 Sodium Chloride (Sodium Chloride 0.9 % 10 Ml Syringe) 0 ml IV-PUSH QSHIFT [facility] Stop: 06/21/26 05:59 Last Admin: 06/21/25 05:40 Dose: Not Given Zonisamide (Zonisamide 100 Mg Capsule) 100 mg PO DAILY [facility] Stop: 06/22/26 08:59 Exam Physical Exam Vital Signs: Temp Pulse Resp BP Pulse Ox O2 Del Method O2 Flow Rate 98.4 F 84 18 162/78 H 94 L Room Air 6 06/21/25 12:00 06/21/25 12:00 06/21/25 12:00 06/21/25 12:00 06/21/25 12:00 06/21/25 12:00 06/21/25 04:23 FiO2 21 06/21/25 04:23 Const General: cooperative and no acute distress HEENT Head: atraumatic Eyes Sclera: sclerae normal (Anicteric) Resp Auscultation: clear to auscultation bilaterally Cardio Rate: regular rate Rhythm: regular rhythm GI Inspection: non-distended Palpation: soft, no guarding and tender in the RUQ Neuro General: patient alert and patient awake Results - Gen. Surgery Intake and Output 24 hour I&O: Intake & Output 06/20/25 06/21/25 06/21/25 23:59 07:59 15:59 Intake Total 0 / 0 Output Total 250 / 250 Balance -250 / -250 Weight 107 kg Labs 06/21/25 05:20 06/21/25 05:20 Laboratory Results - last 72 hr 06/21/25 05:20: Corrected WBC 7.4, Uncorrected WBC Count 7.4, RBC 3.87, Hgb 12.4, Hct 35.6, MCV 91.9, MCH 32.1, MCHC 34.9, RDW 14.8, Plt Count 157, MPV 8.2,Neut % (Auto) 77.6, Lymph % (Auto) 13.5, [place] % (Auto) 8.3, Eos % (Auto) 0.2, Baso % (Auto) 0.4, Nucleat RBC Rel Count 0.1, Neut # (Auto) 5.8, Lymph # (Auto) 1.0, [place] # (Auto) 0.6, Eos # (Auto) 0.0, Baso # (Auto) 0.0, PT 12.9, INR 1.1, APTT 26.4, PHA Creatinine Clear 59.22, Sodium 139, Potassium 3.5, Chloride 111 H, Carbon Dioxide 18.6 L, Anion Gap 12.9, BUN 20, Creatinine 1.01, Est GFR (CKD-EPI) 58.780, Glucose 146 H, Calcium 8.8, Magnesium 1.8 L, Total Bilirubin 1.1 H,AST 81 H, ALT 135 H, Alkaline Phosphatase 115 H, Total Protein 6.8,Albumin 3.6,Globulin 3.2, Albumin/Globulin Ratio 1.1 A&P - General Surgery (1) Calculus of gallbladder with acute cholecystitis: Qualifiers: Biliary obstruction: without biliary obstruction Qualified Code(s): K80.00 - Calculus of gallbladder with acute cholecystitis without obstruction Plan The plan will be to perform a laparoscopic cholecystectomy. This will be scheduled for tomorrow morning. Documented By: Robbin José MD 06/21/25 1327 Signed By: <Electronically signed by MD Robbin José> 06/21/25 1335 History & Physical Note Author Kely Vaughan [facility] Date/TimeDece2024 6:25am [place] [address] Hospitalist H&P Signed Patient: Shey Obrien MR#: [id number] : 1950 Acct:[id number] Age/Sex: 74 / F Adm Date: 5 Loc: 4N Room: 6C4151-8 Type: ADM IN Attending Dr: Willy Palencia MD Copies to: MD Latrell Stephens MD Paula G Smith, APRN~ HPI DATE OF EXAMINATION: 06/21/25 CHIEF COMPLAINT: abdominal pain off and on for 5-6 days HISTORY OF PRESENT ILLNESS: Ms. Obrien is a 74-year-old female with a PMH of CAD, HLD, depression, HTN, seizure disorder presented to [facility] emergency room for severe belly pain. She states that her abdomen been hurting off and on for 5 to 6 days, she also been constipated for 3 days. She said the pain started across her upper abdomen and then Monday morning it moved down to the right lower quadrant and then it would move back up. States he got very severe Monday. She also had fever and chills off and on, nausea. She reports vomiting but when she vomits it spittle which is enough to make her feel little bit better. She states that she did have some epigastric pain and a lot of burping as well. She currently rates her pain 2/10. [facility] chart review-CT of the abdomen and pelvis showed mild hazinessalong the distal esphagus may raise possibility for esophagitis or reflux, gallbladder wall thickening and haziness forpossible cholecystitis. GallbladderUS with positive Cueto's sign, gallbladder wall 2.9mm, CBD 6.3mm, worrisome fordeveloping cholecystitis. EKG sinus rhythm. CBC with a WBC count of 7.3, H&H 13.8/38.8. CMP with a glucose of 202, direct bilirubin 0.5, AST 124, ALT 257, ALP 166. Amylase 18, lipase 25. UA with a trace of leukocytes, 5-10 WBCs, trace of bacteria, culture is pending. She was medicated with 1GM ceftriaxone, 500mg metronidazole, morphine, zofran, 1L 0.9 NS. General surgeon consulted per ER physician and accepted as consult. Transferred here to [facility] under the care of the hospitalist team. Review of Systems Review of Systems Review of systems: A 10 point review of systems was obtained, negative unless noted in the HPI or below. [facility] Medical History (Updated 06/21/25 @ 02:20 by Kely Vaughan APRN) Impingement of left shoulder Dysphagia Surgical History (Updated 06/21/25 @ 02:20 by Kely Vaughan APRN) History of repair of hiatal hernia 07/2024 History of esophagogastroduodenoscopy 07/2024 H/O lateral meniscus repair of right knee History of lateral meniscus repair of left knee History of ankle surgery Right, 2020, Right displaced fibular malleolus fracture open reduction and internal fixation, sub hardware removal History of oral surgery History of hernia repair Family History (Updated 06/21/25 @ 02:21 by Kely Vaughan APRN) Father Cancer lung Mother Myocardial infarction Social History Household Members: family Smoking Status: Former smoker Tobacco Type: cigarettes Substance Use Type: Alcohol (rarely) Social History Comments: Lives with niece and her boyfriend Meds Medications and Allergies Allergies No Known Allergies Allergy (Verified 06/19/25 14:31) Home Medications atorvastatin 40 mg tablet 40 mg PO DAILY 12/12/24 [History Confirmed 06/21/25] tiotropium bromide 18 mcg capsule with inhalation device (Spiriva with HandiHaler) 1 cap inhalationDAILY 12/12/24 [History Confirmed 06/21/25] aspirin 81 mg tablet 81 mg PO DAILY 02/03/25 [History Confirmed 06/21/25] eszopiclone 2 mg tablet (Lunesta) 2 mg PO QHS 30 days #30 tabs 02/03/25 [Rx Confirmed 06/19/25] mirtazapine 15 mg tablet 15 mg PO QHS 02/03/25 [History Confirmed 06/21/25] albuterol sulfate 2.5 mg/3 mL (0.083 %) solution for nebulization 2.5 mg inhalation Q4HR PRN 04/09/25 [History Confirmed 06/19/25] calcium carbonate (Calcium 600) 600 mg PO BID 04/09/25 [History Confirmed 06/19/25] cholecalciferol (vitamin D3) 25 mcg (1,000 unit) tablet 25 mcg PO DAILY 04/09/25[History Confirmed 06/21/25] methocarbamol 750 mg tablet 750 mg PO TID PRN muscle spasms 04/09/25 [History Confirmed 06/21/25] multivitamin,tx-minerals (Multi-Vitamin HP/Minerals capsule) 1 cap PO DAILY 04/09/25 [History Confirmed 06/21/25] vitamin E mixed 400 unit tablet 400 unit PO DAILY 04/09/25 [History Confirmed 06/19/25] zonisamide 50 mg capsule 100 mg PO DAILY 04/09/25 [History Confirmed 06/21/25] donepezil 10 mg tablet 10 mg PO HS 30 days #30 tabs 04/23/25 [Rx Confirmed 06/21/25] amlodipine 5 mg tablet (Norvasc) 5 mg PO DAILY #30 tabs 04/29/25 [Rx Confirmed 06/21/25] tirzepatide (weight loss) 2.5 mg/0.5 mL subcutaneous pen injector (Zepbound) 2.5mg (0.5 mL) subcut QWEEK #2 mL 04/29/25 [Rx Confirmed 06/19/25] eszopiclone 3 mg tablet (Lunesta) 3 mg PO QHS 30 days #30 tabs 05/08/25 [Rx Confirmed 06/21/25] losartan 100 mg tablet 100 mg PO DAILY #30 tabs 06/19/25 [Rx Confirmed 06/21/25] fluticasone propionate 50 mcg/actuation nasal spray,suspension 2 spray intranasal DAILY 06/21/25 [History Confirmed 06/21/25] Exam Physical Exam Vital Signs: Temp Pulse Resp BP Pulse Ox O2 Del Method 100.6 F H 96 20 182/81 H 97 Room Air 06/21/25 01:04 06/21/25 01:04 06/21/25 01:04 06/21/25 01:04 06/21/25 01:04 06/21/25 01:04 Narrative: CONST- Appears well -developed and well nourished. Morbidly obese???BMI 40.5 HEAD - Normocephalic and atraumatic EENT-Sclera nonicteric, conjunctive are non-erythemic, moist oral mucosa, pharynx clear NECK-Supple, no cervical lymphadenopathy CARDIAC-normal rate, regular rhythm, S1 & S2. PULM-diminished without wheeze or rhonchi, RA, no accessory muscle use or cough noted ABD - Soft. Bowel sounds are hyperactive. No distention. tenderness to right upper quadrant, slightguarding, no rebound tenderness EXTREM-no edema BLE calves, nontender SKIN- W/D good turgor MS- MAEX4 spontaneously with equal with equal strength NEURO- A&Ox3 speech clear and tongue midline, equal facial symmetry, no focal motor deficits PSYCH-Mood, affect, and behavior appropriate, slightly anxious Assessment & Plan Assessment/Plan (1) Acute cholecystitis: (2) Essential hypertension, benign: (3) COPD (chronic obstructive pulmonary disease): (4) EDWIN (obstructive sleep apnea): Plan Acute cholecystitis???CBD 6.3 mm ??? Consult general surgery???notified per ER physician and accepted as consult ??? Continue ceftriaxone and metronidazole ??? Acetaminophen, Oxy IR, hydromorphone as needed ??? IV hydration??? LR @ 75ml/hr ??? CBC, CMP, magnesium, PT/INR, PTT in a.m. Chronic conditions???last had home meds on morning HTN???labetalol as needed COPD EDWIN on CPAP Depression/anxiety CAD DVT PPx???heparin Diet order???n.p.o. CODE STATUS???full code Attending attestation Dr. Willy Palencia: I examined the patient, I agree with the assessment and plan. My edits/additions are included above. IP vs OBS Justification Based on differential dx, clinical care plan, and risk of adverse events, if untreated, in my clinical judgement this patient requires an acute care setting as: INPATIENT because of an expectation ofan over 2 midnight stay. Estimated length of stay (# of days): 3 Documented By: Kely Vaughan APRN 06/21/25 0127 Signed By: <Electronically signed by LISSETTE Vaughan> 06/21/25 0226 <Electronically signed by Willy Palencia MD> 06/21/25 0625 Progress Note Author Joel Kaufman [facility] Date/TimeDecember 2024 3:12pm [place] [address] Progress Note Signed Patient: Shey Obrien MR#: [id number] : 1950 Acct:[id number] Age/Sex: 74 / F Adm Date: 5 Loc: 4N Room: [address] [place] [address] Type: ADM IN Attending Dr: Joel Kaufman MD Copies to: ~ Date of Service: 06/21/2025 Progress Narrative Note PROGRESS NOTE Progress Note: Patient seen and evaluated by director of audiology early this morning and also by myself. Briefly, patient is a 74-year-old female past medical history significant for CAD, hypertension, hyperlipidemia, COPD, EDWIN and mood disorder who presented to [place] ER due to abdominal pain found to have acute cholecystitis on imaging there and was sent to [facility] for further evaluation/management. 1. Acute cholecystitis General Surgery following with plans for laparoscopic cholecystectomy tomorrow morning. Will continue IV antibiotics started on admission with IV ceftriaxone and metronidazole as well as IV fluids in addition to pain control with hydromorphone as needed Chronic comorbidities: CAD HTN HLD COPD/EDWIN Documented By: Joel Kaufman MD 06/21/25 1508 Signed By: <Electronically signed by Joel Kaufman MD> 06/21/25 1512 Progress Note Author Joel Kaufman [facility] Date/TimeDecember 2024 4:07pm [place] [address] Hospitalist Progress Note Signed Patient: Shey Obrien MR#: [id number] : 1950 Acct:[id number] Age/Sex: 74 / F Adm Date: 5 Loc: 4 Room: 4N1903-6 Type: ADM IN Attending Dr: Joel Kaufman MD Copies to: ~ Date of Service: 06/22/2025 Subjective Subjective Narrative: Patient is a 74-year-old female with past medical history significant for hypertension, hyperlipidemia, CAD, mood disorder and seizure disorder who presented to [place] ER due to abdominal pain found to have acute cholecystitisand was transferred to [facility] for further evaluation and management. 06/22 follow-up Patient stable status post laparoscopic cholecystectomy earlier this morning Exam Physical Exam Vital Signs: Temp Pulse Resp BP Pulse Ox O2 Del Method O2 Flow Rate 97.8 F 85 16 171/80 H 95 Nasal Cannula 3 06/22/25 10:40 06/22/25 11:25 06/22/25 11:25 06/22/25 11:25 06/22/25 11:25 06/22/25 11:25 06/22/25 11:25 FiO2 21 06/21/25 04:23 Const General: comfortable and no acute distress Resp Effort & Inspection: no respiratory distress Cardio Rate: regular rate Rhythm: regular rhythm Heart Sounds: S1 normal and S2 normal Objective Lab Results 06/22/25 04:25 06/22/25 04:25 Meds Allergies and Active Meds Allergies No Known Allergies Allergy (Verified 06/19/25 14:31) Active Meds: Active Medications Generic Name Dose Route Start Last Admin Trade Name Nathanq PRN Reason Stop Dose Admin Acetaminophen 650 mg 06/21/25 01:38 Acetaminophen 325 Mg Tablet PO 06/21/26 01:37 Q6HR PRN Pain Scale 1 - 3 or fever Amlodipine Besylate 5 mg 06/22/25 09:00 06/22/25 10:45 Amlodipine 5 Mg Tablet PO 06/22/26 08:59 5 mg DAILY ROBIN Administration Atorvastatin Calcium 40 mg 06/22/25 09:00 06/22/25 10:45 Atorvastatin 40 Mg Tablet PO 06/22/26 08:59 40 mg DAILY ROBIN Administration Donepezil HCl 10 mg 06/21/25 22:00 06/21/25 21:26 Donepezil 10 Mg Tablet PO 06/21/26 21:59 10 mg HS ROBIN Administration Heparin Sodium (Porcine) 5,000 unit 06/21/25 09:00 06/21/25 13:59 Heparin 5,000 Unit/Ml Vial SUBCUT 06/21/26 08:59 5,000 unit On Hold: 06/21/25 14:43 Q12HR ROBIN Administration Hydromorphone HCl 0.5 mg 06/21/25 12:10 06/22/25 13:59 Hydromorphone 0.5 Mg/0.5 Ml Syringe IV-PUSH 0.5 mg Q2H PRN Administration Pain Scale 8 - 10 Metronidazole 500 mg in 100 mls @ 100 mls/hr 06/21/25 06:00 06/22/25 13:59 Flagyl IV 100 mls/hr Q8H ROBIN Administration Ceftriaxone Sodium 2 gm in 50 mls @ 100 mls/hr 06/21/25 21:30 06/21/25 21:26 Rocephin IV 100 mls/hr Q24H ROBIN Administration Labetalol HCl 10 mg 06/21/25 01:59 Labetalol 100 Mg/20 Ml Vial IV-PUSH 06/21/26 01:58 Q4H PRN Hypertension Lidocaine HCl 0.1 ml 06/21/25 13:56 Lidocaine 1% 50 Ml Vial INTRADERMA PREOP PRN Venipuncture x 1 Dose Losartan Potassium 100 mg 06/22/25 09:00 06/22/25 10:45 Losartan 50 Mg Tablet PO 06/22/26 08:59 100 mg DAILY ROBIN Administration Melatonin 5 mg 06/21/25 01:38 Melatonin 5 Mg Tablet PO 06/21/26 01:37 QHS PRN Insomnia Mirtazapine 15 mg 06/21/25 22:00 06/21/25 21:26 Mirtazapine 15 Mg Tablet PO 06/21/26 21:59 15 mg QHS ROBIN Administration Ondansetron HCl 4 mg 06/21/25 01:38 Ondansetron 4 Mg/2 Ml Vial IV-PUSH 06/21/26 01:37 Q6H PRN Nausea And Vomiting Oxycodone HCl 5 mg 06/21/25 01:38 Oxycodone Ir 5 Mg Tablet PO Q6HR PRN Pain Scale 4 - 7 Sodium Chloride 0 ml 06/21/25 06:00 06/22/25 14:00 Sodium Chloride 0.9 % 10 Ml Syringe IV-PUSH 06/21/26 05:59 10 ml QSHIFT ROBIN Administration Sodium Chloride 0 ml 06/21/25 13:56 Sodium Chloride 0.9 % 10 Ml Syringe IV-PUSH 06/21/26 13:55 PRN PRN Flush Zonisamide 100 mg 06/22/25 09:00 06/22/25 10:45 Zonisamide 100 Mg Capsule PO 06/22/26 08:59 100 mg DAILY ROBIN Administration A&P - Hospitalist Assessment/Plan (1) Acute cholecystitis: (2) Essential hypertension, benign: (3) COPD (chronic obstructive pulmonary disease): (4) EDWIN (obstructive sleep apnea): Plan Patient is a 74-year-old female with past medical history significant for hypertension, hyperlipidemia, CAD, mood disorder and seizure disorder who presented to [place] ER due to abdominal pain found to have acute cholecystitisand was transferred to [facility] for further evaluation and management. 1. Acute cholecystitis Patient on morning labs noted to have elevated liver transaminases as below. General Surgery was consulted and patient status post laparoscopic cholecystectomy with intraoperative cholangiogram earlier this morning which didrevealed multiple mobile stones in the common bile duct. Recommendations for ERCP. Discussed with Dr. Snyder with [facility] who agrees to take patient tomorrow forERCP. Discussed with rounding nurse and transport has been set up for 11 AM on Monday morning. Will continue IV antibiotics with ceftriaxone and metronidazole. 2. Elevated liver transaminase Total bilirubin this morning 5.3 from 1.0, direct bilirubin 3.9 from 0.5, ALT 148 from 257 and AST 168 from 124 Recommendations for ERCP with plans for tomorrow as above 3. Hypokalemia Potassium 3.3; replacements as needed Chronic comorbidities: HTN COPD EDWIN on CPAP Depression/anxiety CAD Documented By: Joel Kaufman MD 06/22/25 1554 Signed By: <Electronically signed by Joel Kaufman MD> 06/22/25 1607 Progress Note Author Robbin José [facility] Date/TimeDecember 2024 9:04am [place] [address] General Surgery Progress Note Signed Patient: Shey Obrien MR#: [id number] : 1950 Acct:[id number] Age/Sex: 74 / F Adm Date: 5 Loc: Room: [address] [place] [address] Type: ADM IN Attending Dr: Candice Lanier MD Copies to: ~ Date of Service: 06/23/2025 Subjective Subjective HPI: Postop day #1 status post laparoscopic cholecystectomy. Patient was found to have common bile duct stones. She is scheduled to have ERCP with Dr. Snyder this afternoon. Patient states she is not having much pain. Allergies & Medications Medications and Allergies Allergies No Known Allergies Allergy (Verified 06/19/25 14:31) Home Medications atorvastatin 40 mg tablet 40 mg PO DAILY 12/12/24 [History Confirmed 06/21/25] tiotropium bromide 18 mcg capsule with inhalation device (Spiriva with HandiHaler) 1 cap inhalationDAILY 12/12/24 [History Confirmed 06/21/25] aspirin 81 mg tablet 81 mg PO DAILY 02/03/25 [History Confirmed 06/21/25] eszopiclone 2 mg tablet (Lunesta) 2 mg PO QHS 30 days #30 tabs 02/03/25 [Rx Confirmed 06/19/25] mirtazapine 15 mg tablet 15 mg PO QHS 02/03/25 [History Confirmed 06/21/25] albuterol sulfate 2.5 mg/3 mL (0.083 %) solution for nebulization 2.5 mg inhalation Q4HR PRN 04/09/25 [History Confirmed 06/19/25] calcium carbonate (Calcium 600) 600 mg PO BID 04/09/25 [History Confirmed 06/19/25] cholecalciferol (vitamin D3) 25 mcg (1,000 unit) tablet 25 mcg PO DAILY 04/09/25[History Confirmed 06/21/25] methocarbamol 750 mg tablet 750 mg PO TID PRN muscle spasms 04/09/25 [History Confirmed 06/21/25] multivitamin,tx-minerals (Multi-Vitamin HP/Minerals capsule) 1 cap PO DAILY 04/09/25 [History Confirmed 06/21/25] vitamin E mixed 400 unit tablet 400 unit PO DAILY 04/09/25 [History Confirmed 06/19/25] zonisamide 50 mg capsule 100 mg PO DAILY 04/09/25 [History Confirmed 06/21/25] donepezil 10 mg tablet 10 mg PO HS 30 days #30 tabs 04/23/25 [Rx Confirmed 06/21/25] amlodipine 5 mg tablet (Norvasc) 5 mg PO DAILY #30 tabs 04/29/25 [Rx Confirmed 06/21/25] tirzepatide (weight loss) 2.5 mg/0.5 mL subcutaneous pen injector (Zepbound) 2.5mg (0.5 mL) subcut QWEEK #2 mL 04/29/25 [Rx Confirmed 06/19/25] eszopiclone 3 mg tablet (Lunesta) 3 mg PO QHS 30 days #30 tabs 05/08/25 [Rx Confirmed 06/21/25] losartan 100 mg tablet 100 mg PO DAILY #30 tabs 06/19/25 [Rx Confirmed 06/21/25] fluticasone propionate 50 mcg/actuation nasal spray,suspension 2 spray intranasal DAILY 06/21/25 [History Confirmed 06/21/25] Active Medications Acetaminophen (Acetaminophen 325 Mg Tablet) 650 mg PO Q6HR PRN PRN Reason: Pain Scale 1 - 3 or fever Stop: 06/21/26 01:37 Last Admin: 06/22/25 21:47 Dose: 650 mg Amlodipine Besylate (Amlodipine 5 Mg Tablet) 5 mg PO DAILY [facility] Stop: 06/22/26 08:59 Last Admin: 06/22/25 10:45 Dose: 5 mg Atorvastatin Calcium (Atorvastatin 40 Mg Tablet) 40 mg PO DAILY [facility] Stop: 06/22/26 08:59 Last Admin: 06/22/25 10:45 Dose: 40 mg Donepezil HCl (Donepezil 10 Mg Tablet) 10 mg PO HS [facility] Stop: 06/21/26 21:59 Last Admin: 06/22/25 21:47 Dose: 10 mg Heparin Sodium (Porcine) (Heparin 5,000 Unit/Ml Vial) 5,000 unit SUBCUT Q12HR [facility] On Hold: 06/21/25 14:43 Stop: 06/21/26 08:59 Last Admin: 06/21/25 13:59 Dose: 5,000 unit Hydromorphone HCl (Hydromorphone 0.5 Mg/0.5 Ml Syringe) 0.5 mg IV-PUSH Q2H PRN PRN Reason: Pain Scale 8 - 10 Last Admin: 06/22/25 13:59 Dose: 0.5 mg Metronidazole (Flagyl) 500 mg in 100 mls @ 100 mls/hr IV Q8H [facility] Last Admin: 06/23/25 06:11 Dose: 100 mls/hr Ceftriaxone Sodium (Rocephin) 2 gm in 50 mls @ 100 mls/hr IV Q24H [facility] Last Admin: 06/22/25 21:37 Dose: 100 mls/hr Labetalol HCl (Labetalol 100 Mg/20 Ml Vial) 10 mg IV-PUSH Q4H PRN PRN Reason: Hypertension Stop: 06/21/26 01:58 Lidocaine HCl (Lidocaine 1% 50 Ml Vial) 0.1 ml INTRADERMA PREOP PRN PRN Reason: Venipuncture x 1 Dose Losartan Potassium (Losartan 50 Mg Tablet) 100 mg PO DAILY [facility] Stop: 06/22/26 08:59 Last Admin: 06/22/25 10:45 Dose: 100 mg Melatonin (Melatonin 5 Mg Tablet) 5 mg PO QHS PRN PRN Reason: Insomnia Stop: 06/21/26 01:37 Mirtazapine (Mirtazapine 15 Mg Tablet) 15 mg PO QHS [facility] Stop: 06/21/26 21:59 Last Admin: 06/22/25 21:47 Dose: 15 mg Ondansetron HCl (Ondansetron 4 Mg/2 Ml Vial) 4 mg IV-PUSH Q6H PRN PRN Reason: Nausea And Vomiting Stop: 06/21/26 01:37 Oxycodone HCl (Oxycodone Ir 5 Mg Tablet) 5 mg PO Q6HR PRN PRN Reason: Pain Scale 4 - 7 Sodium Chloride (Sodium Chloride 0.9 % 10 Ml Syringe) 0 ml IV-PUSH QSHIFT [facility] Stop: 06/21/26 05:59 Last Admin: 06/23/25 06:09 Dose: Not Given Sodium Chloride (Sodium Chloride 0.9 % 10 Ml Syringe) 0 ml IV-PUSH PRN PRN PRN Reason: Flush Stop: 06/21/26 13:55 Zonisamide (Zonisamide 100 Mg Capsule) 100 mg PO DAILY [facility] Stop: 06/22/26 08:59 Last Admin: 06/22/25 10:45 Dose: 100 mg Exam Physical Exam Vital Signs: Temp Pulse Resp BP Pulse Ox O2 Del Method O2 Flow Rate 97.3 F L 63 18 152/80 H 97 Room Air 2 06/23/25 07:51 06/23/25 07:51 06/23/25 07:51 06/23/25 07:51 06/23/25 07:51 06/23/25 07:51 06/22/25 15:42 FiO2 21 06/21/25 04:23 Const General: cooperative and no acute distress GI Inspection: non-distended and incision (Incisions clean and dry) Palpation: soft Neuro General: patient alert and patient awake Objective Pain Assessment Right Lower Abdomen: Pain Intensity: 2 Abdomen: Pain Description: Soreness Pain Intensity: 3 Intake & Output 24 hour I&O: Intake & Output 06/22/25 06/23/25 06/23/25 23:59 07:59 15:59 Intake Total 940 / 2640 200 / 200 Output Total 600 / 1150 950 / 950 Balance 340 / 1490 -750 / -750 Weight 104 kg Labs 06/22/25 04:25 06/22/25 04:25 Laboratory Results - Last 48 hrs. 06/22/25 06:10: Blood Type Recheck B Positive 06/22/25 05:20: Blood Type B Positive, Antibody Screen Negative 06/22/25 04:25: Corrected WBC 4.8, RBC 3.64, Hgb 11.8, Hct 33.1 L, MCV 90.9, MCH32.4, MCHC 35.6 H, RDW 14.7, Plt Count 142 L, MPV 8.5, PHA Creatinine Clear 60.42, Sodium 141, Potassium 3.3 L, Chloride 112 H, Carbon Dioxide 20.4 L, AnionGap 11.9, BUN 21, Creatinine 0.99, Est GFR (CKD-EPI) > 60.0,Glucose 107 H, Calcium 8.6, Total Bilirubin 5.3 H, Direct Bilirubin 3.90 H, Indirect Bilirubin 1.4,AST 168 H, ALT 148 H, Alkaline Phosphatase 140 H, Total Protein 6.1 L, Albumin 3.2 L, Globulin 2.9,Albumin/Globulin Ratio 1.1 A&P - General Surgery Assessment/Plan (1) Calculus of gallbladder with acute cholecystitis: Qualifiers: Biliary obstruction: without biliary obstruction Qualified Code(s): K80.00 - Calculus of gallbladder with acute cholecystitis without obstruction (2) Choledocholithiasis: Plan Patient to have ERCP this afternoon. Documented By: Robbin José MD 06/23/25 0902 Signed By: <Electronically signed by MD Robbin José> 06/23/25 0904 Progress Note Author Deidre WilkersonSelect [facility]-FairhillNote Date/TimeDecemb2024 9:14pm [place] [address] Hospitalist Progress Note Signed Patient: Shey Obrien MR#: [id number] : 1950 Acct:[id number] Age/Sex: 74 / F Adm Date: 5 Loc: 4N Room: [address] [place] [address] Type: ADM IN Attending Dr: Candice Lanier MD Copies to: ~ Date of Service: 06/23/2025 Subjective Subjective Narrative: Patient seen and examined. [facility]. She denies any pain, no nausea, dinner is just brought to her. Exam Physical Exam Vital Signs: Temp Pulse Resp BP Pulse Ox O2 Del Method O2 Flow Rate 98.2 F 73 16 179/90 H 94 L Room Air 2 06/23/25 17:54 06/23/25 17:54 06/23/25 17:54 06/23/25 17:54 06/23/25 17:54 06/23/25 17:54 06/22/25 15:42 FiO2 21 06/21/25 04:23 Narrative: CONST- alert, in bed, mentating clearly CARD- RRR no abnormal heart tones PULM- dimin without wheeze or rhonchi, RA ABD- S/NT, NABS, obese SKIN- lap sites well approx with surgi-glue EXTREM- no edema BLE, calves nontender Objective Lab Results 06/23/25 09:22 06/23/25 09:22 Meds Allergies and Active Meds Allergies No Known Allergies Allergy (Verified 06/19/25 14:31) Active Meds: Active Medications Generic Name Dose Route Start Last Admin Trade Name Freq PRN Reason Stop Dose Admin Acetaminophen 650 mg 06/21/25 01:38 06/22/25 21:47 Acetaminophen 325 Mg Tablet PO 06/21/26 01:37 650 mg Q6HR PRN Administration Pain Scale 1 - 3 or fever Amlodipine Besylate 5 mg 06/22/25 09:00 06/23/25 11:16 Amlodipine 5 Mg Tablet PO 06/22/26 08:59 Not Given DAILY ROBIN Atorvastatin Calcium 40 mg 06/22/25 09:00 06/23/25 11:17 Atorvastatin 40 Mg Tablet PO 06/22/26 08:59 Not Given DAILY ROBIN Donepezil HCl 10 mg 06/21/25 22:00 06/22/25 21:47 Donepezil 10 Mg Tablet PO 06/21/26 21:59 10 mg HS ROBIN Administration Heparin Sodium (Porcine) 5,000 unit 06/21/25 09:00 06/21/25 13:59 Heparin 5,000 Unit/Ml Vial SUBCUT 06/21/26 08:59 5,000 unit On Hold: 06/21/25 14:43 Q12HR ROBIN Administration Hydromorphone HCl 0.5 mg 06/21/25 12:10 06/22/25 13:59 Hydromorphone 0.5 Mg/0.5 Ml Syringe IV-PUSH 0.5 mg Q2H PRN Administration Pain Scale 8 - 10 Metronidazole 500 mg in 100 mls @ 100 mls/hr 06/21/25 06:00 06/23/25 06:11 Flagyl IV 100 mls/hr Q8H ROBIN Administration Ceftriaxone Sodium 2 gm in 50 mls @ 100 mls/hr 06/21/25 21:30 06/22/25 21:37 Rocephin IV 100 mls/hr Q24H ROBIN Administration Labetalol HCl 10 mg 06/21/25 01:59 Labetalol 100 Mg/20 Ml Vial IV-PUSH 06/21/26 01:58 Q4H PRN Hypertension Lidocaine HCl 0.1 ml 06/21/25 13:56 Lidocaine 1% 50 Ml Vial INTRADERMA PREOP PRN Venipuncture x 1 Dose Losartan Potassium 100 mg 06/22/25 09:00 06/23/25 11:17 Losartan 50 Mg Tablet PO 06/22/26 08:59 Not Given DAILY ROBIN Melatonin 5 mg 06/21/25 01:38 Melatonin 5 Mg Tablet PO 06/21/26 01:37 QHS PRN Insomnia Mirtazapine 15 mg 06/21/25 22:00 06/22/25 21:47 Mirtazapine 15 Mg Tablet PO 06/21/26 21:59 15 mg QHS ROBIN Administration Ondansetron HCl 4 mg 06/21/25 01:38 Ondansetron 4 Mg/2 Ml Vial IV-PUSH 06/21/26 01:37 Q6H PRN Nausea And Vomiting Oxycodone HCl 5 mg 06/21/25 01:38 Oxycodone Ir 5 Mg Tablet PO Q6HR PRN Pain Scale 4 - 7 Sodium Chloride 0 ml 06/21/25 06:00 06/23/25 06:09 Sodium Chloride 0.9 % 10 Ml Syringe IV-PUSH 06/21/26 05:59 Not Given QSHIFT ROBIN Sodium Chloride 0 ml 06/21/25 13:56 Sodium Chloride 0.9 % 10 Ml Syringe IV-PUSH 06/21/26 13:55 PRN PRN Flush Zonisamide 100 mg 06/22/25 09:00 06/23/25 11:17 Zonisamide 100 Mg Capsule PO 06/22/26 08:59 Not Given DAILY ROBIN A&P - Hospitalist Assessment/Plan (1) Acute cholecystitis: (2) Essential hypertension, benign: (3) COPD (chronic obstructive pulmonary disease): (4) EDWIN (obstructive sleep apnea): Plan Patient is a 74-year-old female with past medical history significant for hypertension, hyperlipidemia, CAD, mood disorder and seizure disorder who presented to [place] ER due to abdominal pain found to have acute cholecystitisand was transferred to [facility] for further evaluation and management. 1. Acute cholecystitis General Surgery was consulted and patient status post laparoscopic cholecystectomy with intraoperative cholangiogram 06/22 which did revealed multiple mobile stones in the common bile duct. ERCP at [facility] 06/23 Will continue IV antibiotics with ceftriaxone and metronidazole. 2. Elevated liver transaminase Total bilirubin this morning 5.3 from 1.0, direct bilirubin 3.9 from 0.5, ALT 148 from 257 and AST 168 from 124 Recommendations for ERCP with plans for tomorrow as above 3. Hypokalemia Potassium 3.3; replacements as needed Chronic comorbidities: HTN COPD EDWIN on CPAP Depression/anxiety CAD Documented By: Deidre Rankin APRN 06/09 Signed By: <Electronically signed by LISSETTE Rankin> 06/23/252058 <Electronically signed by Candice Lanier MD> 06/23/252113
--- OUTSIDE RECORDS SUMMARY | 2025-06-30 09:45 | XMS_ITS | Encounter Summary ---
Author Organization [facility] Address [address] [place] [address] Care Team Providers Care Director Of Business Development Name Role Phone Latrell Mckeon MD Primary Care Provider [phone] Siomara Fitzgerald DO Unavailable [phone] Latrell Mckeon MD Unavailable Reason for Visit * PwwzbkFhjlcthf0dz po Lap nikolas Encounter Details DateTypeDepartmentCare Team (Latest Contact Info)Rzeqboxjyea25/22/2025 9:45 AM ESTOffice Visit [facility] [address] [address] Robbin José MD [address] [address] Calculus of gallbladder with acute cholecystitis without obstruction (Primary Dx); Choledocholithiasis Social History Tobacco UseTypesPacks/DayYears UsedDateSmoking Tobacco: FormerCigarettes1.270.7 07/10/1967 - 01/08/2012Smokeless Tobacco: NeverAlcohol UseStandard Drinks/Week CommentsYes4 (1 standard drink = 0.6 oz pure alcohol)Caffeine: 2-3 cups per day B1300 Health LiteracyAnswerDate RecordedHow often do you need to have someone help you when you read instructions, pamphlets, or other written material from your doctor or pharmacy?Brpavanwd17/26/2024Social Connection and Isolation Panel AnswerDate RecordedIn a typical week, how many times do you talk on the phone with family, friends, or neighbors?More than three times a week02/02/2024How often do you get together with friends or relatives?Three times a week02/02/2024 How often do you attend orthodox or zoroastrianism services?Patient vupbauaq79/26/2024 Do you belong to any clubs or organizations such as orthodox groups, unions, fraternal or athletic groups, or school groups?Patient kxyfbnes98/26/2024How often do you attend meetings of the clubs or organizations you belong to?Patient sqqnpydw34/26/2024re you , , , , never , or living with a partner?Never tadfyqy1002/02/2024UDIT-CAnswerDate RecordedQ1: How often do you have a drink containing alcohol?Monthly or less03/03/2024Q2: How many drinks containing alcohol do you have on a typical day when you are drinking?3 or Q3: How often do you have six or more drinks on one occasion?Less than cnltcad8603/03/2024Overall Financial Resource Strain (CARDIA) AnswerDate RecordedHow hard is it for you to pay for the very basics like food, housing, medical care, and heating?Patient rbjjetci58/26/2024HQ-2AnswerDate RecordedPatient Health Questionnaire-2 Dwplu957Finencompass health [place] of Occupational Health - Occupational Stress QuestionnaireAnswerDate RecordedDo you feel stress - tense, restless, nervous, or anxious, or unable to sleep at night because yourmind is troubled all the time - these days?To some sfnsce3402/02/2024 Exercise Vital SignAnswerDate RecordedOn average, how many days per week do you engage in moderate to strenuous exercise (like a brisk walk)?Patient declined 02/02/2024On average, how many minutes do you engage in exercise at this level? Patient wwmwlyop95/26/2024Hunger Vital SignAnswerDate RecordedWithin the past 12 months, you worried that your food would run out before you got the money to buy more.Patient /26/2024Within the past 12 months, the food [...] or living in a group home (including now)?No02/02/2024CommentsUnknownSex and Gender InformationValueDate RecordedSex Assigned at BirthNot on fileLegal SexFemale 09/21/2022 7:08 PM EDTGender IdentityNot on fileSexual OrientationNot on file documented as of this encounter Last Filed Vital Signs Vital SignReadingTime TakenCommentsBlood Ulwzqtir718/6206/30/2025 9:48 AM EST Pulse--Temperature--Respiratory Rate--Oxygen Saturation--Inhaled Oxygen Concentration--Piniwr579 kg (227 lb)06/30/2025 9:48 AM LDKIokvwm053.6 cm (5' 4 ) 06/30/2025 9:48 AM ESTBody Mass Index38.9606/30/2025 9:48 AM ESTdocumented in this encounter Progress Notes * Robbin Cárdenas MD - 06/30/2025 9:45 AM EST Images from the original note were not included. The patient is a follow-up from the hospital. She is status post a laparoscopic cholecystectomy. Pathology revealed acute cholecystitis, cholelithiasis. Patient was also found to have common bile duct stones. She then underwent ERCP with Dr. Snyder. The patient states that stones were removed and she did not require a stent placement. I do not have those records at this time. The patient states she is doing very well. She denies pain. She is eating. She denies vomiting. Sheis not requiring pain medication. On examination, she is awake alert and in no acute distress. Sclerae nonicteric. Abdomen is soft, nondistended. Laparoscopic incisions are clean and dry without evidence of infection. 1. Calculus of gallbladder with acute cholecystitis without obstruction 2. Choledocholithiasis Patient is not to lift more 20 lb for 2 weeks from time of the surgery. The patient states she doesnot require a repeat ERCP since no stent was placed. She will follow up here in about 1 month for a recheck. Next appointment: 07/30/2025 documented in this encounter Plan of Treatment DateTypeDepartmentCare Team (Latest Contact Info)Kbnasafopxx93/05/2026 9:50 AM ESTOffice Visit [facility] [place] [facility] [address] [facility] [address] [place] [address] Layla Houston MD [address] [facility] [address] [place] [address] 07/30/2025 10:15 AM ESTOffice Visit [facility] [address] [facility] 150 [place] [phone] Robbin José MD 703 [facility] 150 [place] [address] documented as of this encounter Visit Diagnoses Diagnosis Calculus of gallbladder with acute cholecystitis without obstruction- Primary Choledocholithiasis Calculus of bile duct without mention of cholecystitis or obstruction documented in this encounter Additional Health Concerns AssessmentNoted TimePHQ-9 Depression Total Score: 10:00 AM EST documented as of this encounter Care Teams Team MemberRelationshipSpecialtyStart DateEnd Date Latrell Mckeon MD [address] [place] [address] PCP - GeneralFamily Medicine08/05/23 Latrell Mckeon MD [address] [place] [address] PCP - ACO Reach08/16/24 Siomara Fitzgerald DO [address] [place] [address] Referring JucnewrieOjpaqbvur64/21/24documented as of this encounter
--- NOTE | 2025-07-01 08:44 | FL_ITS ---
The [address] [address] Patient Name: PARTH BOSS MRN: [id number] date: 1950 Sex: F Assigned Patient Location: [place] Current Patient Location: [place] Accession/Order Number: [id number] Exam Date: 07/01/2025 09:01 Report Date: 07/01/2025 11:49 At the request of: NON-STAFF PHYSICIAN MD Procedure: CA cineradiography DOUBLE CONTRAST UPPER GI SERIES CLINICAL HISTORY: Paraoesophageal Hernia COMPARISON: None TECHNIQUE: Double contrast upper GI series was performed. 1.5 minutes of fluoroscopic time was utilized. FINDINGS: The esophagus appears normal in caliber without evidence of stricture, mass or ulcer. Gastroesophageal reflux was seen to the level of the distal esophagus. No tertiary contractions. Stomach demonstrates a normal fold pattern without mass stricture or ulcer. No hiatal hernia was encountered. Duodenal bulb and C-loop appear unremarkable. FL/CA upper GI w air IMPRESSION: GASTROESOPHAGEAL REFLUX WAS SEEN TO THE LEVEL OF DISTAL ESOPHAGUS WITHOUT STRICTURE, MASS OR ULCER. NO FLUOROSCOPIC EVIDENCE OF RECURRENCE OF THE PATIENT'S PARAESOPHAGEAL HERNIA. Impression dictated by: Claude Bahena Jr., D.O. 07/01/2025 11:49 AM Dictation Location: [employer] Electronically authenticated by: [id number] Y Date: 07/01/2025 11:49
--- NOTE | 2025-07-01 08:44 | FL_ITS ---
The [address] [address] Patient Name: PARTH BOSS MRN: [id number] date: 1950 Sex: F Assigned Patient Location: [place] Current Patient Location: [place] Accession/Order Number: [id number] Exam Date: 07/01/2025 09:01 Report Date: 07/01/2025 11:49 At the request of: NON-STAFF PHYSICIAN MD Procedure: FL cineradiography DOUBLE CONTRAST UPPER GI SERIES CLINICAL HISTORY: Paraoesophageal Hernia COMPARISON: None TECHNIQUE: Double contrast upper GI series was performed. 1.5 minutes of fluoroscopic time was utilized. FINDINGS: The esophagus appears normal in caliber without evidence of stricture, mass or ulcer. Gastroesophageal reflux was seen to the level of the distal esophagus. No tertiary contractions. Stomach demonstrates a normal fold pattern without mass stricture or ulcer. No hiatal hernia was encountered. Duodenal bulb and C-loop appear unremarkable. FL/[place] cineradiography IMPRESSION: GASTROESOPHAGEAL REFLUX WAS SEEN TO THE LEVEL OF DISTAL ESOPHAGUS WITHOUT STRICTURE, MASS OR ULCER. NO FLUOROSCOPIC EVIDENCE OF RECURRENCE OF THE PATIENT'S PARAESOPHAGEAL HERNIA. Impression dictated by: Claude Bahena Jr., D.O. 07/01/2025 11:49 AM Dictation Location: [employer] Electronically authenticated by: [id number] Y Date: 07/01/2025 11:49
--- OUTSIDE RECORDS SUMMARY | 2025-07-01 08:44 | XMS_ITS | Patient Health Record ---
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) ActiveconfirmedProblemLumbar radiculopathy (248896637)Radiculopathy, lumbar region (M54.16)ActiveconfirmedProblemPain in right foot (843643810879477)Right foot pain (M79.671)Activeconfirmed Plan Of Treatment Pending Test Test Name Order Date XR foot RT min 3V 04/10/2024 Insurance Providers Payer Name Payer Address Payer Phone Subscriber Number Group Number Insured Name Patient Relationship to Insured Coverage Start Date Coverage End Date MEDICARE RAILROAD [address] [address] [place], [place] [id number] Ariadne Obrien - patient is the [facility] [address] [address] [place], [place] [id number], SharonSelf - patient is the insured Medical (General) History Surgical History Surgery Date(Month/Year) right ankle sx right ankle [id number]
--- OUTSIDE RECORDS SUMMARY | 2025-07-01 08:45 | XMS_ITS | Encounter Summary ---
Author Organization [facility] Address [address] [place] [address] Care Team Providers Care Zyglo Inspector Name Role Phone Latrell Mckeon MD Primary Care Provider [phone] Siomara Fitzgerald DO Unavailable [phone] Latrell Mckeon MD Unavailable Encounter Details DateTypeDepartmentCare Team (Latest Contact Info)Hongatqiuek30/17/2025Orders Only [facility] [address] [address] Robbin José MD [address] [address] Social History Tobacco UseTypesPacks/DayYears UsedDateSmoking Tobacco: FormerCigarettes1.270.7 07/10/1967 - 01/08/2012Smokeless Tobacco: NeverAlcohol UseStandard Drinks/Week CommentsYes4 (1 standard drink = 0.6 oz pure alcohol)Caffeine: 2-3 cups per day B1300 Health LiteracyAnswerDate RecordedHow often do you need to have someone help you when you read instructions, pamphlets, or other written material from your doctor or pharmacy?Zkimtujyo54/26/2024Social Connection and Isolation Panel AnswerDate RecordedIn a typical week, how many times do you talk on the phone with family, friends, or neighbors?More than three times a week02/02/2024How often do you get together with friends or relatives?Three times a week02/02/2024 How often do you attend anglican or orthodox services?Patient immgenmm71/26/2024 Do you belong to any clubs or organizations such as anglican groups, unions, fraternal or athletic groups, or school groups?Patient gkoubcws27/26/2024How often do you attend meetings of the clubs or organizations you belong to?Patient wjijoxtf79/26/2024re you , , , , never , or living with a partner?Never ufadczj6902/02/2024UDIT-CAnswerDate RecordedQ1: How often do you have a drink containing alcohol?Monthly or less03/03/2024Q2: How many drinks containing alcohol do you have on a typical day when you are drinking?3 or Q3: How often do you have six or more drinks on one occasion?Less than vofpgbo8403/03/2024Overall Financial Resource Strain (CARDIA) AnswerDate RecordedHow hard is it for you to pay for the very basics like food, housing, medical care, and heating?Patient /26/2024HQ-2AnswerDate RecordedPatient Health Questionnaire-2 Gnerk076Finheber valley medical center [place] of Occupational Health - Occupational Stress QuestionnaireAnswerDate RecordedDo you feel stress - tense, restless, nervous, or anxious, or unable to sleep at night because yourmind is troubled all the time - these days?To some ayeydg2302/02/2024 Exercise Vital SignAnswerDate RecordedOn average, how many days per week do you engage in moderate to strenuous exercise (like a brisk walk)?Patient declined 02/02/2024On average, how many minutes do you engage in exercise at this level? Patient orwbivbz17/26/2024Hunger Vital SignAnswerDate RecordedWithin the past 12 months, you worried that your food would run out before you got the money to buy more.Patient dftdjwwe08/26/2024Within the past 12 months, the food you [...] were you homeless or living in a retirement (including now)?No02/02/2024CommentsUnknownSex and Gender InformationValueDate RecordedSex Assigned at BirthNot on fileLegal SexFemale 09/21/2022 7:08 PM EDTGender IdentityNot on fileSexual OrientationNot on file documented as of this encounter Plan of Treatment DateTypeDepartmentCare Team (Latest Contact Info)Gzeenfrdqoz82/05/2026 9:50 AM ESTOffice Visit [facility] [place] [facility] [address] [facility] 130 [place] [address] Layla Houston MD 112 [facility] 130 [place] [address] 07/30/2025 10:15 AM ESTOffice Visit [facility] [address] [address] Robbin José MD [address] [place] [address] documented as of this encounter Procedures Procedure NamePriorityDate/TimeAssociated DiagnosisCommentsGENERAL PATHOLOGY Gnuhxvh0306/22/2025 1:14 PM ESTdocumented in this encounter Results * GENERAL PATHOLOGY (06/22/2025 1:14 PM EST) Narrative Authorizing ProviderResult TypeResult StatusAlbert DOC FitchLINISYNCFinal Result documented in this encounter Visit Diagnoses Not on filedocumented in this encounter Additional Health Concerns AssessmentNoted TimePHQ-9 Depression Total Score: 10:00 AM EST documented as of this encounter Care Teams Team MemberRelationshipSpecialtyStart DateEnd Date Latrell Mckeon MD [address] [place] [address] [facility] - [facility] Latrell Mckeon MD [address] [place] [address] PCP - ACO [facility]08/16/24 Siomara Fitzgerald DO [address] [place] [address] Referring BsunqvozqOyklwyfmj48/21/24documented as of this encounter
--- OUTSIDE RECORDS SUMMARY | 2025-07-01 08:45 | XMS_ITS | Encounter Summary ---
Author Organization [facility] Address [address] [place] [address] Care Team Providers Care Structures Mechanic Name Role Phone Latrell Mckeon MD Primary Care Provider [phone] Siomara Fitzgerald DO Unavailable [phone] Latrell Mckeon MD Unavailable Encounter Details DateTypeDepartmentCare Team (Latest Contact Info)Rspilyinebn86/16/2025Travel Social History Tobacco UseTypesPacks/DayYears UsedDateSmoking Tobacco: FormerCigarettes1.270.7 07/10/1967 - 01/08/2012Smokeless Tobacco: NeverAlcohol UseStandard Drinks/Week CommentsYes4 (1 standard drink = 0.6 oz pure alcohol)Caffeine: 2-3 cups per day B1300 Health LiteracyAnswerDate RecordedHow often do you need to have someone help you when you read instructions, pamphlets, or other written material from your doctor or pharmacy?Prdisidlc70/26/2024Social Connection and Isolation Panel AnswerDate RecordedIn a typical week, how many times do you talk on the phone with family, friends, or neighbors?More than three times a week02/02/2024How often do you get together with friends or relatives?Three times a week02/02/2024 How often do you attend pentecostalism or rastafarian services?Patient somecama86/26/2024 Do you belong to any clubs or organizations such as pentecostalism groups, unions, fraternal or athletic groups, or school groups?Patient btmuhpga98/26/2024How often do you attend meetings of the clubs or organizations you belong to?Patient clechgsz13/26/2024re you , , , , never , or living with a partner?Never miovrhn0202/02/2024UDIT-CAnswerDate RecordedQ1: How often do you have a drink containing alcohol?Monthly or less03/03/2024Q2: How many drinks containing alcohol do you have on a typical day when you are drinking?3 or Q3: How often do you have six or more drinks on one occasion?Less than cbfefoj0103/03/2024Overall Financial Resource Strain (CARDIA) AnswerDate RecordedHow hard is it for you to pay for the very basics like food, housing, medical care, and heating?Patient armoiwfp04/26/2024HQ-2AnswerDate RecordedPatient Health Questionnaire-2 Nqkqn793[facility] [place] of Occupational Health - Occupational Stress QuestionnaireAnswerDate RecordedDo you feel stress - tense, restless, nervous, or anxious, or unable to sleep at night because yourmind is troubled all the time - these days?To some mqiytd6602/02/2024 Exercise Vital SignAnswerDate RecordedOn average, how many days per week do you engage in moderate to strenuous exercise (like a brisk walk)?Patient declined 02/02/2024On average, how many minutes do you engage in exercise at this level? Patient fcxjjlod79/26/2024Hunger Vital SignAnswerDate RecordedWithin the past 12 months, you worried that your food would run out before you got the money to buy more.Patient kblctuhe19/26/2024Within the past 12 months, the food you [...] times have you moved where you were living?4At any time in the past 12 months, were you homeless or living in a halfway (including now)?No4CommentsUnknownSex and Gender InformationValueDate RecordedSex Assigned at BirthNot on fileLegal SexFemale 09/21/2022 7:08 PM EDTGender IdentityNot on fileSexual OrientationNot on file documented as of this encounter Plan of Treatment DateTypeDepartmentCare Team (Latest Contact Info)Frexjnefcwx65/05/2026 9:50 AM ESTOffice Visit [facility] [address] [facility] [address] [place] [address] Layla Houston MD 112 [facility] 130 [place] [address] 07/30/2025 10:15 AM ESTOffice Visit [facility] [address] [facility] 150 [place] [phone] Robbin José MD 703 [facility] 150 [place] [address] documented as of this encounter Visit Diagnoses Not on filedocumented in this encounter Additional Health Concerns AssessmentNoted TimePHQ-9 Depression Total Score: 10:00 AM EST documented as of this encounter Care Teams Team MemberRelationshipSpecialtyStart DateEnd Date Latrell Mckeon MD [address] [place] [phone] PCP - GeneralFamily Medicine08/05/23 Latrell Mckeon MD [address] [place] [phone] PCP - ACO Reach08/16/24 Siomara Fitzgerald DO [address] [place] [address] Referring AavlstgvsGqdktjaec27/21/24documented as of this encounter
--- OUTSIDE RECORDS SUMMARY | 2025-07-01 08:45 | XMS_ITS | Encounter Summary ---
Author Organization [facility] Address [address] [place] [address] Care Team Providers Care Corporate Job Titles Name Role Phone Latrell Mckeon MD Primary Care Provider [phone] Siomara Fitzgerald DO Unavailable [phone] Latrell Mckeon MD Unavailable Encounter Details DateTypeDepartmentCare Team (Latest Contact Info)Qnetdempbhi61/17/2025Travel Social History Tobacco UseTypesPacks/DayYears UsedDateSmoking Tobacco: FormerCigarettes1.270.7 07/10/1967 - 01/08/2012Smokeless Tobacco: NeverAlcohol UseStandard Drinks/Week CommentsYes4 (1 standard drink = 0.6 oz pure alcohol)Caffeine: 2-3 cups per day B1300 Health LiteracyAnswerDate RecordedHow often do you need to have someone help you when you read instructions, pamphlets, or other written material from your doctor or pharmacy?Dldddyjhj11/26/2024Social Connection and Isolation Panel AnswerDate RecordedIn a typical week, how many times do you talk on the phone with family, friends, or neighbors?More than three times a week02/02/2024How often do you get together with friends or relatives?Three times a week02/02/2024 How often do you attend sikhism or episcopal services?Patient yfeypqvi48/26/2024 Do you belong to any clubs or organizations such as sikhism groups, unions, fraternal or athletic groups, or school groups?Patient yjrtpumq71/26/2024How often do you attend meetings of the clubs or organizations you belong to?Patient yibnghzz73/26/2024re you , , , , never , or living with a partner?Never ozocowq3102/02/2024UDIT-CAnswerDate RecordedQ1: How often do you have a drink containing alcohol?Monthly or less03/03/2024Q2: How many drinks containing alcohol do you have on a typical day when you are drinking?3 or Q3: How often do you have six or more drinks on one occasion?Less than jruycxk7703/03/2024Overall Financial Resource Strain (CARDIA) AnswerDate RecordedHow hard is it for you to pay for the very basics like food, housing, medical care, and heating?Patient atxfrovd56/26/2024HQ-2AnswerDate RecordedPatient Health Questionnaire-2 Ldvzf256[facility] [place] of Occupational Health - Occupational Stress QuestionnaireAnswerDate RecordedDo you feel stress - tense, restless, nervous, or anxious, or unable to sleep at night because yourmind is troubled all the time - these days?To some ltzijo1202/02/2024 Exercise Vital SignAnswerDate RecordedOn average, how many days per week do you engage in moderate to strenuous exercise (like a brisk walk)?Patient declined 02/02/2024On average, how many minutes do you engage in exercise at this level? Patient jcbkhwhy90/26/2024Hunger Vital SignAnswerDate RecordedWithin the past 12 months, you worried that your food would run out before you got the money to buy more.Patient ptyvzbii96/26/2024Within the past 12 months, the food you [...] homeless or living in a residential (including now)?No4CommentsUnknownSex and Gender InformationValueDate RecordedSex Assigned at BirthNot on fileLegal SexFemale 09/21/2022 7:08 PM EDTGender IdentityNot on fileSexual OrientationNot on file documented as of this encounter Plan of Treatment DateTypeDepartmentCare Team (Latest Contact Info)Ubmqfrflqye73/05/2026 9:50 AM ESTOffice Visit [facility] [address] [facility] [address] [place] [address] Layla Houston MD 112 [facility] 130 [place] [address] 07/30/2025 10:15 AM ESTOffice Visit [facility] 703 [facility] 150 [place] [phone] Robbin José MD 703 [facility] 150 [place] [address] documented as of this encounter Visit Diagnoses Not on filedocumented in this encounter Additional Health Concerns AssessmentNoted TimePHQ-9 Depression Total Score: 10:00 AM EST documented as of this encounter Care Teams Team MemberRelationshipSpecialtyStart DateEnd Date Latrell Mckeon MD [address] [place] [phone] PCP - GeneralFamily Medicine08/05/23 Latrell Mckeon MD [address] [place] [phone] PCP - ACO Reach08/16/24 Siomara Fitzgerald DO [address] [place] [address] Referring LurfynmggSgmmszpbw03/21/24documented as of this encounter
--- OUTSIDE RECORDS SUMMARY | 2025-07-01 08:45 | XMS_ITS | Encounter Summary ---
Author Organization [facility] Address [address] [place] [address] Care Team Providers Care Slunk Skinner Name Role Phone Latrell Mckeon MD Primary Care Provider [phone] Siomara Fitzgerald DO Unavailable [phone] Latrell Mckeon MD Unavailable Encounter Details DateTypeDepartmentCare Team (Latest Contact Info)Cmezxnngdbd20/14/2025External Result Encounter [facility] Unsolicited Robbin José MD [address] [address] Social History Tobacco UseTypesPacks/DayYears UsedDateSmoking Tobacco: FormerCigarettes1.270.7 07/10/1967 - 01/08/2012Smokeless Tobacco: NeverAlcohol UseStandard Drinks/Week CommentsYes4 (1 standard drink = 0.6 oz pure alcohol)Caffeine: 2-3 cups per day B1300 Health LiteracyAnswerDate RecordedHow often do you need to have someone help you when you read instructions, pamphlets, or other written material from your doctor or pharmacy?Djyejdlfj17/26/2024Social Connection and Isolation Panel AnswerDate RecordedIn a typical week, how many times do you talk on the phone with family, friends, or neighbors?More than three times a week02/02/2024How often do you get together with friends or relatives?Three times a week02/02/2024 How often do you attend buddhism or sabianist services?Patient pxbojfsj19/26/2024 Do you belong to any clubs or organizations such as buddhism groups, unions, fraternal or athletic groups, or school groups?Patient mlewozjs58/26/2024How often do you attend meetings of the clubs or organizations you belong to?Patient nqcamkdl34/26/2024re you , , , , never , or living with a partner?Never nzxlljh4202/02/2024UDIT-CAnswerDate RecordedQ1: How often do you have a drink containing alcohol?Monthly or less03/03/2024Q2: How many drinks containing alcohol do you have on a typical day when you are drinking?3 or Q3: How often do you have six or more drinks on one occasion?Less than dithznq8803/03/2024Overall Financial Resource Strain (CARDIA) AnswerDate RecordedHow hard is it for you to pay for the very basics like food, housing, medical care, and heating?Patient nfuqwqro30/26/2024HQ-2AnswerDate RecordedPatient Health Questionnaire-2 Qymit827[facility] [place] of Occupational Health - Occupational Stress QuestionnaireAnswerDate RecordedDo you feel stress - tense, restless, nervous, or anxious, or unable to sleep at night because yourmind is troubled all the time - these days?To some nsqxfg3402/02/2024 Exercise Vital SignAnswerDate RecordedOn average, how many days per week do you engage in moderate to strenuous exercise (like a brisk walk)?Patient declined 02/02/2024On average, how many minutes do you engage in exercise at this level? Patient cehtmlwq55/26/2024Hunger Vital SignAnswerDate RecordedWithin the past 12 months, [...] were you homeless or living in a custodial (including now)?No02/02/2024CommentsUnknownSex and Gender InformationValueDate RecordedSex Assigned at BirthNot on fileLegal SexFemale 09/21/2022 7:08 PM EDTGender IdentityNot on fileSexual OrientationNot on file documented as of this encounter Plan of Treatment DateTypeDepartmentCare Team (Latest Contact Info)Eqduaazzzdb94/05/2026 9:50 AM ESTOffice Visit [facility] [address] [facility] 130 [place] [address] Layla Houston MD [address] [facility] 130 [place] [address] 07/30/2025 10:15 AM ESTOffice Visit [facility] 703 [facility] 150 [place] [address] Robbin José MD 703 [facility] 150 [place] [address] documented as of this encounter Procedures Procedure NamePriorityDate/TimeAssociated DiagnosisCommentsHEPATIC FUNCTION WNCXNWqylatx98/14/2025 4:25 AM EST BASIC METABOLIC JKTYAMmrtkma75/14/2025 4:25 AM EST documented in this encounter Results * (ABNORMAL) Basic metabolic panel (06/22/2025 4:25 AM EST)ComponentValueRef RangeTest MethodAnalysis TimePerformed AtPathologist IkvgsvhxlVttnrja723(H)70 - 100 mg/dL06/22/2025 5:21 AM [facility]trComment: Random Glucose Reference Range is dependent on time and content of last meal. Glucose of more than 200 mg/dL in a nonstressed, ambulatory subject supports the diagnosis of Diabetes Mellitus. ADA recommended reference range XKC164 - 25 mg/dL06/22/2025 5:21 AM [facility] CtrCREATININE 0.990.60 - 1.20 mg/dL06/22/2025 5:21 AM [facility] ESTIMATED GFR>60. 5:21 AM [facility] ZlxUqjcye677 136 - 145 mmol/L108/23/2024 5:21 AM [facility] CtrPotassium, Bld3.3(L)3.5 - 5.1 mmol/L108/23/2024 5:21 AM [facility] Clrzonyr183(H)98 - 107 mmol/L108/23/2024 5:21 AM [facility] CtrCarbon Vpgtizy32.4(L)21.0 - 31.0 mmol/L108/23/2024 5:21 AM [facility] CtrAnion Gap11.96.0 - 15. 5:21 AM [facility] CtrCalcium8.68.6 - 10.3 mg/dL06/22/2025 5:21 AM [facility] CtrCREATININE CLR CALC ZSDNTWCP63.42108/23/2024 5:21 AM [facility] CtrSpecimen (Source)Anatomical Location / Laterality Collection Method / VolumeCollection TimeReceived TimeOtherTopography unknown / Aasxqnl3506/22/2025 4:25 AM EST06/22/2025 4:49 AM EST Narrative Authorizing ProviderResult TypeResult StatusAlbert Arnav Cárdenas MDLAB BLOOD ORDERABLESFinal ResultPerforming OrganizationAddressCity/State/ZIP CodePhone Number [facility] [address] [place] [address], [facility] [address] [place] [address] * (ABNORMAL) Hepatic function panel (06/22/2025 4:25 AM EST)ComponentValueRef RangeTest MethodAnalysis TimePerformed AtPathologist SignatureTOTAL PROTEIN6.1 (L)6.4 - 8.9 g/dL06/22/2025 5:21 AM [facility] CtrALBUMIN LEVEL3.2(L)3.5 - 5.7 g/dL06/22/2025 5:21 AM [facility] GLOBULIN2.9g/dL06/22/2025 5:21 AM [facility] ALBUMIN/GLOBULIN RATIO1. 5:21 AM [facility] BILIRUBIN,TOTAL5.3(H)0.3 - 1.0 mg/dL06/22/2025 5:21 AM [facility] CtrComment: Samples from patients who have taken Naproxen have shown spurious elevation in Total Bilirubin levels. ??A metabolite of Naproxen, O-desmethylnaproxen, has been shown to interfere with the Qamar-Martin method for measuring Total Bilirubin. BILIRUBIN,DIRECT3.90(H)0.03 - 0.18 mg/dL06/22/2025 5:21 AM [facility] CtrBILIRUBIN,INDIRECT1.4mg/dL06/22/2025 5:21 AM [facility] CtrASPARTATE AMINO FWGNXAJHXBF597(H)13 - 39 U/L108/23/2024 5:21 AM [facility] CtrALANINE WRUSOBCIVRCNGHUR083(H)7 - 52 U/L108/23/2024 5:21 AM [facility] CtrALKALINE HPIEEUDRINM089(H)34 - 104 U/L 06/22/2025 5:21 AM [facility] CtrSpecimen (Source)Anatomical Location / LateralityCollection Method / VolumeCollection TimeReceived TimeOther Topography unknown / Ahkeeyr0406/22/2025 4:25 AM EST06/22/2025 4:49 AM EST Narrative Authorizing ProviderResult TypeResult StatusAllilian Cárdenas MDLAB BLOOD ORDERABLESFinal ResultPerforming OrganizationAddressCity/State/ZIP CodePhone Number [facility] [address] [place] [address], [facility] [address] [place] [address] documented in this encounter Visit Diagnoses Not on filedocumented in this encounter Additional Health Concerns AssessmentNoted TimePHQ-9 Depression Total Score: 402/ 10:00 AM EST documented as of this encounter Care Teams Team MemberRelationshipSpecialtyStart DateEnd Date Latrell Mckeon MD [address] [place] [phone] PCP - GeneralFamily Medicine08/05/23 Latrell Mckeon MD [address] [place] [address] PCP - ACO Reach08/16/24 Siomara Fitzgerald DO [address] [place] [address] Referring VgesgocfwVyoebqgxr52/21/24documented as of this encounter
--- OUTSIDE RECORDS SUMMARY | 2025-07-01 08:45 | XMS_ITS | Clinical Summary ---
Author Organization [employer] tem Address [id number] [address] [place] [address] Care Team Providers Care Credit Investigator Name Role Phone Latrell Mckeon MD Primary Care Provider [phone] Allergies No known active allergies Medications MedicationSigDispense QuantityRefillsLast FilledStart DateEnd DateStatus zolpidem (AMBIEN) 10 mg tablet Take 10 mg by mouth daily.10/13/2020ctive famotidine (PEPCID) 40 mg tablet Take 40 mg by mouth 2 (two) times a day.11/08/2020ctive pantoprazole (PROTONIX) 40 mg EC tablet Take 40 mg by mouth daily.Active ndukcsdk-lcdx-MX-calcium &mins (THERAGRAN-M) 9 mg iron-400 mcg tablet [...] diseaseMotherRelationNameStatusCommentsFatherDeceasedMotherDeceased Social History Tobacco UseTypesPacks/DayYears UsedDateSmoking Tobacco: PwtjeaPdwlvymmjs4Ikge: 2011Smokeless Tobacco: NeverAlcohol UseStandard Drinks/WeekCommentsYes0 (1 standard drink = 0.6 oz pure alcohol)socialCommentsNoSex and Gender InformationValueDate RecordedSex Assigned at BirthNot on fileLegal SexFemale 10/21/2020 10:40 AM EDTGender IdentityNot on fileSexual OrientationNot on file Last Filed Vital Signs Vital SignReadingTime TakenCommentsBlood Gcngfbir026/9806 12:37 PM EDT Irwke573012/09/2020 12:37 PM KFPDhyhkxwpvdo15.3 ??C (97.3 ??F)12/09/2020 11:07 AM EDTRespiratory Wgiz431012/09/2020 12:37 PM EDTOxygen Iojuqsxqfs82%12/09/2020 12:37 PM EDTInhaled Oxygen Concentration--Jzmncw332.9 kg (229 lb)12/09/2020 8:19 AM RFQFeymig070 cm (5' 3 )12/09/2020 8:19 AM EDTBody Mass Index40.57012/09/2020 8:19 AM EDT Plan of Treatment Health MaintenanceDue DateLast DoneCommentsDepression Yxlqdxoov94/15/1964Tobacco Bfdhuukvf13/15/1964Adult BMI Vzlyhmude08/15/1970DTaP,Tdap and Td Vaccines (1 - Tdap)09/21/1970Zoster (Shingles) Vaccine (1 of 2)09/21/2001Fall Risk Screening 09/21/2016COVID-19 Vaccine ( season)/10/2020, 09/14/2020, 08/27/2020Influenza Ochkkrd75/10/2020, 06/16/2020, 05/16/2019, Additional history existsRSV ( or age 60+ yrs) (1 - 1-dose 75+ series) 09/21/2026 Medical Devices Not on file Insurance Care Teams Team MemberRelationshipSpecialtyStart DateEnd Date Latrell Mckeon MD PCP - GeneralFamily Medicine11/09/20
--- OUTSIDE RECORDS SUMMARY | 2025-07-01 08:45 | XMS_ITS | Clinical Summary ---
Author Organization [facility] Healthcare Address [address] [place] [address] Care Team Providers Care Street Cleaner Name Role Phone Latrell Mckeon MD Primary Care Provider [phone] Siomara Fitzgerald DO Unavailable [phone] Latrell Mckeon MD Unavailable Allergies No [...] wheezing or shortness of breath 150 mL 4Active Multiple Vitamin (multivitamin) capsule Take 1 capsule by mouth DailyActive zonisamide (Zonegran) 50 MG capsule Take 100 [...] tablet Take 2 mg by mouth at oykvrqo25/28/2025Active losartan (Cozaar) 100 MG tablet Indications:Essential hypertension, benignTake 1 tablet (100 mg) by mouth Daily 30 tablet 5085Active atorvastatin (Lipitor) 40 MG tablet Indications:DyslipidemiaTAKE 1 TABLET BY MOUTH AT BEDTIME 90 tablet 3085Active methocarbamol (Robaxin) 750 MG tablet Indications:Degenerative lumbar spinal stenosisTAKE 1 TABLET BY MOUTH 4 TIMES A DAY NEEDED FOR MUSCLE SPASMS 60 tablet 5Active mirtazapine (Remeron) 15 MG tablet Daily at pxiffya70/28/2025Active amLODIPine (Norvasc) 5 MG tablet Take 5 mg by mouth DailyActive Ascorbic Acid (vitamin C) 1000 MG tablet Take 1,000 mg by mouth DailyActive alpha tocopherol (Vitamin E) 400 units capsule Take 1 capsule by mouth 1 (one) time each day at the same time06/30/2025 Discontinued(Therapy completed) fluticasone (Flonase) 50 MCG/ACT nasal spray Indications:Seasonal allergic rhinitis due to pollenUSE 2 SPRAYS IN EACH NOSTRIL DAILY 48 mL Discontinued(Therapy completed) famotidine (Pepcid) 40 MG tablet Indications:Hiatal hernia with gastroesophageal reflux disease without esophagitisTAKE 1 TABLET TWICE DAILY 180 tablet Discontinued(Therapy completed) pantoprazole (ProtoNix) 40 MG EC tablet Indications:Hiatal hernia with gastroesophageal reflux disease without esophagitisTake 1 tablet (40 mg) by mouth in the morning and 1 tablet (40 mg) before bedtime. 180 tablet Discontinued(Therapy completed) Docusate Sodium (DSS) 100 MG capsule Take 100 mg by mouth every 12 (twelve) hours if rnoesi86 Discontinued(Therapy completed) acetaminophen (Tylenol) 500 MG tablet Take 500 mg by mouth every 6 (six) hours if needed for mild pain or moderate pain Take 2 tabs every6 hours as needed for pain. Discontinued(Therapy completed) Active Problems ProblemNoted DateDiagnosed WxhxBkkukmi49/24/2025Dysfunction of left eustachian tube06/02/2025Major depressive disorder, recurrent, fupdnglt69/24/2025Primary osteoarthritis, left tjyowgue42/24/7317Ulkwhzfozvmtmj60/24/2025Tinnitus 06/02/2025Impingement of left ictfgnob79/24/2025Former jgsoxb6902/24/2025 Assessment & Plan (02/24/2025 4:01 PM EDT): Quit in 2011 but prior 1 PPD for 40 plus years. Check LDCT chest. Degenerative lumbar spinal nntkzahg91/28/2025 Assessment & Plan (12/04/2024 2:25 PM EDT): Recent flare and increased pain. Treat with prednisone. Use robaxin for spasms and norco PRN. Follow up with pain management next week as scheduled. Medicare annual wellness visit, fezptvmyme87/18/2025 Assessment & Plan (08/27/2024 11:04 AM EST): [...] (05/15/2024 10:33 AM EST): Weight loss indicated. Peooqm1103/03/20245335Jdntothrw25/02/2024 Assessment & Plan (02/09/2024 10:30 AM EDT): Problems swallowing and refer to GI for endoscopy. Senile vtwwerwn73/02/2024 Assessment & Plan (08/27/2024 11:05 AM EST): Follow with neurology. Assessment & Plan (02/09/2024 10:32 AM EDT): Worsening memory and family history of Alzheimer's. Start aricept and refer to neurology for evaluation. Hdjceayxzvq12/04/2024Essential hypertension, onmpkz0008/11/2023 Assessment & Plan (02/24/2025 4:00 PM EDT): [...] stable and continue spiriva. Use albuterol PRN. Vdzzqgxpxjfa43/02/2024Lower extremity edema08/11/2023Osteopenia of lumbar spine 08/11/2023TIA (transient ischemic attack)08/11/2023OSA (obstructive sleep apnea) 08/11/2023 Assessment & Plan (05/15/2024 10:35 AM EST): Sleeping well with CPAP and continue nightly. The patient is benefiting from PAP therapy. Assessment & Plan (02/09/2024 10:31 AM EDT): Sleeping well with CPAP and continue nightly. The patient is benefiting from PAP therapy. Primary mehogbtk42/02/2024 Assessment & Plan (02/24/2025 4:01 PM EDT): Sleeping well with lunesta and continue. Assessment & Plan (05/15/2024 10:35 AM EST): Sleeping well with ambien and continue. Assessment & Plan (02/09/2024 10:31 AM EDT): Sleeping well with ambien and continue. Assessment & Plan (08/11/2023 10:22 AM EST): Sleeping well with ambien and continue. Encounter for long-term (current) use of gllkghjxzse03/02/2024Seasonal allergic rhinitis due to bkaddh4308/11/2023 Assessment & Plan (08/11/2023 10:23 AM EST): Increased symptoms and use flonase daily. Resolved Problems ProblemNoted DateDiagnosed DateResolved AdrnIepwjjnwjbz19 Hiatal hernia with gastroesophageal reflux disease without qfjzfbsnzzu72/02/2024 12/04/2024 Assessment & Plan (05/15/2024 10:34 AM EST): GERD controlled but still problems swallowing. Scheduled for surgery 07/24. Assessment & Plan (02/09/2024 10:31 AM EDT): Denies reflux but developed dysphagia. Increase protonix. Assessment & Plan (08/11/2023 10:22 AM EST): Symptoms controlled with protonix and continue. Morbid obesity due to excess xgkorrov41 Encounters DateTypeDepartmentCare JiosFtltgkrounk65/22/2025 9:45 AM ESTOffice Visit [facility] [address] [place] [phone] Robbin José MD Calculus of gallbladder with acute cholecystitis without obstruction (Primary Dx); Kwstibngpafogjpxacr97/22/1273Ojxkbk82/19/1650Naqygj82/17/7888Vyzcci39/17/2025 Orders Only [facility] [address] [place] [phone] Robbin José MD 06/24/20254363Rxywpi80/15/2025External Result Encounter [facility] Unsolicited Robbin José MD 06/23/2025External Result Encounter [facility] External Department Unsolicited Robbin José MD 06/22/2025External Result Encounter [facility] External Department Unsolicited Robbin José MD 06/22/2025External Result Encounter [facility] External Department Unsolicited Robbin José MD 06/09/2025 1:10 PM ESTOffice Visit [facility] [address] [facility] [address] [place] [address] Layla Houston MD Asymmetric SNHL (sensorineural hearing loss) (Primary Dx); Left-sided oaivsibz98/01/2025amboo flowsheet [facility] [address] [facility] [address] [place] [address] Layla Houston MD 06/09/20254234Atnklg68/26/2025 3:00 PM ESTOffice Visit [facility] [address] [place] [phone] Sugar Cruz AUD Sensorineural hearing loss, bilateral (Primary Dx); Tinnitus, nrctwascv53/26/2025amboo flowsheet [facility] [address] [place] [phone] Sugar Cruz AUD from Last 3 Months Immunizations ImmunizationAdministration DatesNext DueInfluenza, High Dose Seasonal, Preservative Free05/16/2019,05/12/2018Influenza, High-dose Seasonal, Quadrivalent, Preservative Free04/12/2021Influenza, Injectable, MDCK, preservative free04/16/2015Influenza, Seasonal, Quadrivalent, Adjuvanted 05/03/2022,06/16/2020Influenza, injectable, quadrivalent, preservative free 05/10/2016Influenza, live, intranasal, hzmuwunmbcbi06/06/2018Influenza, trivalent, sxshpsajin11/06/2024Pneumococcal Conjugate PCV 13011/25/2021, 01/31/2018Pneumococcal Polysaccharide NONQ736507/16/2018RSV, recombinant, protein subunit RSVpreF, adjuvant reconstitu, 120mcg/0.5mL, PF (Arexvy)03/27/2023 Family History Medical HistoryRelationNameCommentsCancerFatherTom McHenryDiabetesFather's BrotherAlzheimer's diseaseFather's SisterKatherine RankinAlzheimer's disease MotherMadge GrinnellArthritisMotherMadge GrinnellHeart attackMotherMadge GrinnellParkinsonismSiblingRelationNameStatusCommentsFatherTom McHenryDeceased Father's BrotherFather's SisterKatherine RankinMotherMadge GrinnellDeceased SiblingAlive Social History Tobacco UseTypesPacks/DayYears UsedDateSmoking Tobacco: FormerCigarettes1.270.7 07/10/1967 - 01/08/2012Smokeless Tobacco: Never Tobacco Cessation:Counseling Given: Not Answered Alcohol UseStandard Drinks/WeekCommentsYes4 (1 standard drink = 0.6 oz pure alcohol)Caffeine: 2-3 cups per xrhT2507 Health LiteracyAnswerDate RecordedHow often do you need [...] times a week02/02/2024How often do you attend methodist or religion services?Patient iqnbrwwc76/26/2024o you belong to any clubs or organizations such as methodist groups, unions, fraternal or athletic lavell ups, or school groups?Patient lbpibadk62/26/2024How often do you attend meetings of the clubs or organizations you belong to?Patient xvooatct98/26/2024re you , , , , never , or living with a partner? Never cizgsdn0802/02/2024UDIT-CAnswerDate RecordedQ1: How often do you have a [...] like food, housing, medical care, and heating?Patient migbdlok17/26/2024HQ-2AnswerDate RecordedPatient Health Questionnaire-[address] [facility] [place] [facility] [place] - Occupational Stress QuestionnaireAnswerDate RecordedDo you feel stress - tense, restless, nervous, or anxious, or unable to sleep at night because yourmind is troubled all the time - these days?To some vamipr6902/02/2024Exercise Vital Sign AnswerDate RecordedOn average, how many days per week do you engage in moderate to strenuous exercise (like a brisk walk)?Patient gscaflwm63/26/2024On average, how many minutes do you engage in exercise at this level?Patient declined 02/02/2024Hunger Vital SignAnswerDate RecordedWithin the past 12 months, you worried that your food would run out before you got the money to buymore.Patient tccmsomb56/26/2024Within the past 12 months, the food you bought just didn't last and you didn't have money to get more.Patient utambjoq27/26/2024RAPARE - TransportationAnswerDate RecordedIn the past 12 months, [...] Last Filed Vital Signs Vital SignReadingTime TakenCommentsBlood Rumiptxq973/6206/30/2025 9:48 AM EST Edics991606/09/2025 12:58 PM UZZDlraqgjistl12.2 ??C (97.1 ??F)02/24/2025 11:00 AM EDTRespiratory Coiq322302/24/2025 11:00 AM EDTOxygen Mqjrktuvnz79%02/24/2025 11:00 AM EDTInhaled Oxygen Concentration--Yrufqn957 kg (227 lb)06/30/2025 9:48 AM EST Ymltwr012.6 cm (5' 4 )06/30/2025 9:48 AM ESTBody Mass Index38.9606/30/2025 9:48 AM EST Plan of Treatment DateTypeDepartmentCare Team (Latest Contact Info)Ixnwpnfxaqk70/05/2026 9:50 AM ESTOffice Visit [facility] [address] [facility] [address] [place] [address] Layla Houston MD [address] [facility] [address] [place] [address] 07/30/2025 10:15 AM ESTOffice Visit [facility] [address] [phone] Robbin José MD [address] [facility] [address] [place] [address] Health MaintenanceDue DateLast DoneCommentsCT Cswykmpppgwz11/15/1952FIT-DNA 1950FIT1950FOBT1951Lung Cancer Screening Shared Decision Pdwfoj38 1950 6984Eairnvtjqyngh08/15/1952Medicare Annual Wellness (AWV)08/27/2025 08/27/20247844Kstunrkrm92, 02/27/2025, 11/28/2023, Additional history wpmrvdQkauakfhjbf67/05/203404/11/2023, 10/13/2023olorectal Cancer Zlvovjcvw31/05/2034Pneumococcal Vaccine: 65+ TcpvpWukppxuoc77/19/2022, 05/16/2019, 01/31/2018Influenza QqtbmjhOmevpjinl23/16/2025, 05/15/2024, 05/03/2022, Additional history exists Procedures Procedure NamePriorityDate/TimeAssociated DiagnosisCommentsHEPATIC FUNCTION HTQQIFyshysr18/15/2025 9:22 AM EST [place] [place]Aiymitq0306/23/2025 9:22 AM EST GENERAL BBUMJSKMQGpuouuv84/14/2025 1:14 PM ESTBASIC METABOLIC PANELRoutine 06/22/2025 4:25 AM EST HEPATIC FUNCTION HNYSSKjawxpx72/14/2025 4:25 AM EST HEMOGRAM [place]Fnxvmzf0606/22/2025 4:25 AM EST AUDITORY FUNCTION RMQFAUcmcpta31/26/2025 3:30 PM EST BI MAMMOGRAM SCREENING UTIEIJSPNQpysmgh94/21/2025 2:18 PM EDT Breast cancer screening by mammogram from Last 3 Months or Most Recently Relevant to Health Maintenance Results * (ABNORMAL) HEMOGRAM [place] (06/23/2025 9:22 AM EST) Only the most recent of2 resultswithin the time period is included. ComponentValueRef RangeTest MethodAnalysis TimePerformed AtPathologist Signature WBC6.23.8 - 11.6 [CFU]/mL06/23/2025 9:44 AM [facility] CtrRBC 3.663.60 - 5.00 10*6/uL06/23/2025 9:44 AM [facility] WKBXQSYEZI65.911.8 - 15.4 g/dL12/ 9:44 AM [facility] GaxBIIPKUAPXN88.9(L)34.0 - 46.4 %06/23/2025 9:44 AM [facility] EwjZNT33.780 - 100 fL06/23/2025 9:44 AM [facility] XixLNM55.624.7 - 34.3 pg06/23/2025 9:44 AM [facility] CtrMCHC 35.2(H)32.0 - 35.0 g/dL06/23/2025 9:44 AM [facility] CtrRED CELL DISTRIBUTION WIDTH, RDW14.511.9 - 15.3 %06/23/2025 9:44 AM [facility] CtrPLATELET ODTWK545863 - 450 10*3/uL06/23/2025 9:44 AM [facility] CtrMEAN PLATELET VOLUME, MPV8.36.3 - 10.7 fL 06/23/2025 9:44 AM [facility] CtrSpecimen (Source)Anatomical Location / LateralityCollection Method / VolumeCollection TimeReceived TimeBlood (Blood)06/23/2025 9:22 AM EST06/23/2025 9:37 AM EST Narrative Authorizing ProviderResult TypeResult StatusAlSHANNAN Roman BLOOD ORDERABLESFinal ResultPerforming OrganizationAddressCity/State/ZIP CodePhone Number [facility] [address] [place] [address], [facility] [address] [place] [address] * (ABNORMAL) Hepatic function panel (06/23/2025 9:22 AM EST) Only the most recent of2 resultswithin the time period is included. ComponentValueRef RangeTest MethodAnalysis TimePerformed AtPathologist Signature TOTAL PROTEIN6.66.4 - 8.9 g/dL06/23/2025 10:06 AM [facility] CtrALBUMIN LEVEL3.3(L)3.5 - 5.7 g/dL06/23/2025 10:06 AM [facility] CtrGLOBULIN3.3g/dL06/23/2025 10:06 AM [facility]tr ALBUMIN/GLOBULIN RATIO1.012 10:06 AM [facility]tr BILIRUBIN,TOTAL1.7(H)0.3 - 1.0 mg/dL06/23/2025 10:06 AM [facility] CtrComment: Samples from patients who have taken Naproxen have shown spurious elevation in Total Bilirubin levels. ??A metabolite of Naproxen, O-desmethylnaproxen, has been shown to interfere with the Jendrassik-Grof method for measuring Total Bilirubin. BILIRUBIN,DIRECT1.00(H)0.03 - 0.18 mg/dL06/23/2025 10:06 AM [facility] CtrBILIRUBIN,INDIRECT0.7mg/dL06/23/2025 10:06 AM [facility] CtrASPARTATE AMINO CPXOECPGYIV626(H)13 - 39 U/L108/24/2024 10:06 AM [facility] CtrALANINE VNKWPOWGHJDTBVER602(H)7 - 52 U/L 06/23/2025 10:06 AM [facility] CtrALKALINE MLWDPSGSZCZ708(H) 34 - 104 U/L108/24/2024 10:06 AM [facility] CtrSpecimen (Source)Anatomical Location / LateralityCollection Method / VolumeCollection TimeReceived TimeOtherTopography unknown / Nlikxzd2206/23/2025 9:22 AM EST 06/23/2025 9:37 AM EST Narrative Authorizing ProviderResult TypeResult StatusSHANNAN Hope BLOOD ORDERABLESFinal ResultPerforming OrganizationAddressCity/State/[facility] CodePhone Number [facility] [address] [place] [address], [facility] [address] [place] [address] * GENERAL PATHOLOGY (06/22/2025 1:14 PM EST) Narrative Authorizing ProviderResult TypeResult DOC ToribioLINISYNCFinal Result * (ABNORMAL) Basic metabolic panel (06/22/2025 4:25 AM EST)ComponentValueRef RangeTest MethodAnalysis TimePerformed AtPathologist YoexypvreEgvpvkn526(H)70 - 100 mg/dL06/22/2025 5:21 AM [facility] CtrComment: Random Glucose Reference Range is dependent on time and content of last meal. Glucose of more than 200 mg/dL in a nonstressed, ambulatory subject supports the diagnosis of Diabetes Mellitus. ADA recommended reference range EDH844 - 25 mg/dL06/22/2025 5:21 AM [facility] CtrCREATININE 0.990.60 - 1.20 mg/dL06/22/2025 5:21 AM [facility]tr ESTIMATED GFR>60. 5:21 AM [facility] VzmOdrpht403 136 - 145 mmol/L108/23/2024 5:21 AM [facility] CtrPotassium, Bld3.3(L)3.5 - 5.1 mmol/L108/23/2024 5:21 AM [facility]tr Fmbiqbvn089(H)98 - 107 mmol/L108/23/2024 5:21 AM [facility] CtrCarbon Hekdzqc25.4(L)21.0 - 31.0 mmol/L108/23/2024 5:21 AM [facility] CtrAnion Gap11.96.0 - 15. 5:21 AM [facility] CtrCalcium8.68.6 - 10.3 mg/dL06/22/2025 5:21 AM [facility] CtrCREATININE CLR CALC NMVQUVYV99.42108/23/2024 5:21 AM [facility] CtrSpecimen (Source)Anatomical Location / Laterality Collection Method / VolumeCollection TimeReceived TimeOtherTopography unknown / Wketysq1906/22/2025 4:25 AM EST06/22/2025 4:49 AM EST Narrative Authorizing ProviderResult TypeResult StatusAlbert Arnav Cárdenas MDLAB BLOOD ORDERABLESFinal ResultPerforming OrganizationAddressCity/State/ZIP CodePhone Number [facility] [address] [place] [address], [facility] [address] [place] [address] * Auditory function tests (06/04/2025 3:30 PM EST) Narrative Sugar Cruz, AUD - 06/04/2025 3:30 PM EST [employer] Audiometry Audio indicated ??normal hearing sensitivity 250-4000 Hz, sloping to a mild hearing loss 9358-9004 Hz in the right ear. The left ear exhibited normal hearing 250-3000 Hz, sloping to a mild to moderate sensorineural hearing loss 9694-4014 Hz. Hallpike: Yielded negative results in both positions tested. Authorizing ProviderResult TypeResult StatusSugar Cruz AUDAUDIOLOGY SERVICES ORDERABLESFinal Result * Bilateral screening mammogram (02/27/2025 2:18 PM EDT) Narrative Authorizing ProviderResult TypeResult StatusLatrell Mckeon MDIMAnette BI PROCEDURES Final ResultPerforming OrganizationAddressCity/State/ZIP CodePhone Number [address] [address], from Last 3 Months or Most Recently Relevant to [place] [id number] Care Teams Team MemberRelationshipSpecialtyStart DateEnd Date Latrell Mckeon MD [address] [place] [phone] [facility] Latrell Mckeon MD [address] [place] [phone] PCP - ACO [facility]08/16/24 Siomara Fitzgerald DO [address] [place] [address] Referring HkoowcqtyOdnllucrs78/21/24
--- OUTSIDE RECORDS SUMMARY | 2025-07-01 08:45 | XMS_ITS | Encounter Summary ---
Author Organization [facility] Address [address] [place] [address] Care Team Providers Care Tenderizer Tender Name Role Phone Latrell Mckeon MD Primary Care Provider [phone] Siomara Fitzgerald DO Unavailable [phone] Latrell Mckeon MD Unavailable Encounter Details DateTypeDepartmentCare Team (Latest Contact Info)Plfndxrxsit54/14/2025External Result Encounter [facility] External Department Unsolicited Robbin José MD [address] [address] Social History Tobacco UseTypesPacks/DayYears UsedDateSmoking Tobacco: FormerCigarettes1.270.7 07/10/1967 - 01/08/2012Smokeless Tobacco: NeverAlcohol UseStandard Drinks/Week CommentsYes4 (1 standard drink = 0.6 oz pure alcohol)Caffeine: 2-3 cups per day B1300 Health LiteracyAnswerDate RecordedHow often do you need to have someone help you when you read instructions, pamphlets, or other written material from your doctor or pharmacy?Cvdnnddvp60/26/2024Social Connection and Isolation Panel AnswerDate RecordedIn a typical week, how many times do you talk on the phone with family, friends, or neighbors?More than three times a week02/02/2024How often do you get together with friends or relatives?Three times a week02/02/2024 How often do you attend restorationism or jewish services?Patient iyqhplrl67/26/2024 Do you belong to any clubs or organizations such as restorationism groups, unions, fraternal or athletic groups, or school groups?Patient beqafzrp98/26/2024How often do you attend meetings of the clubs or organizations you belong to?Patient lihshmdz98/26/2024re you , , , , never , or living with a partner?Never onmtxzw5202/02/2024UDIT-CAnswerDate RecordedQ1: How often do you have a drink containing alcohol?Monthly or less03/03/2024Q2: How many drinks containing alcohol do you have on a typical day when you are drinking?3 or Q3: How often do you have six or more drinks on one occasion?Less than oijfehm2503/03/2024Overall Financial Resource Strain (CARDIA) AnswerDate RecordedHow hard is it for you to pay for the very basics like food, housing, medical care, and heating?Patient chfnuitc59/26/2024HQ-2AnswerDate RecordedPatient Health Questionnaire-2 Zyiqa534Finva hospital [facility] of Occupational Health - Occupational Stress QuestionnaireAnswerDate RecordedDo you feel stress - tense, restless, nervous, or anxious, or unable to sleep at night because yourmind is troubled all the time - these days?To some hptcuu6302/02/2024 Exercise Vital SignAnswerDate RecordedOn average, how many days per week do you engage in moderate to strenuous exercise (like a brisk walk)?Patient declined 02/02/2024On average, how many minutes do you engage in exercise at this level? Patient /26/2024Hunger Vital SignAnswerDate RecordedWithin the past 12 months, you worried that your food would run out before you got the money to buy more.Patient aivpyqmv09/26/2024Within the past 12 months, the food you [...] Plan of Treatment DateTypeDepartmentCare Team (Latest Contact Info)Zbefndssukr61/05/2026 9:50 AM ESTOffice Visit [facility] [address] [facility] 130 [place] [address] Layla Houston MD 112 [facility] 130 [place] [address] 07/30/2025 10:15 AM ESTOffice Visit [facility] [address] [address] Robbin José MD 703 [facility] 150 [place] [address] documented as of this encounter Procedures Procedure NamePriorityDate/TimeAssociated DiagnosisCommentsHEMOGRAM CBC WITHOUT DIFF [place]Gdgjqld0106/22/2025 4:25 AM EST documented in this encounter Results * (ABNORMAL) HEMOGRAM [place] DIFF [place] (06/22/2025 4:25 AM EST)Component ValueRef RangeTest MethodAnalysis TimePerformed AtPathologist SignatureWBC4.8 3.8 - 11.6 [CFU]/mL06/22/2025 5:01 AM ESTTri[facility] CtrRBC3.64 3.60 - 5.00 10*6/uL06/22/2025 5:01 AM [facility] AZIOVLJYVI54.811.8 - 15.4 g/dL06/22/2025 5:01 AM [facility] LuwEMVLCDODGU18.1(L)34.0 - 46.4 %06/22/2025 5:01 AM [facility] GuoFWP02.980 - 100 fL06/22/2025 5:01 AM [facility] PvdRGY26.424.7 - 34.3 pg06/22/2025 5:01 AM [facility] Ctr MCHC35.6(H)32.0 - 35.0 g/dL06/22/2025 5:01 AM [facility] CtrRED CELL DISTRIBUTION WIDTH, RDW14.711.9 - 15.3 %06/22/2025 5:01 AM [facility] CtrPLATELET UTSIM838(L)150 - 450 10*3/uL06/22/2025 5:01 AM [facility] CtrMEAN PLATELET VOLUME, MPV8.56.3 - 10.7 fL06/22/2025 5:01 AM [facility] CtrSpecimen (Source) Anatomical Location / LateralityCollection Method / VolumeCollection Time Received TimeBlood (Blood)06/22/2025 4:25 AM EST06/22/2025 4:49 AM EST Narrative Authorizing ProviderResult TypeResult StatusAlbert Arnav Cárdenas MDLAB BLOOD ORDERABLESFinal ResultPerforming OrganizationAddressCity/State/ZIP CodePhone Number COUNT INCLUDES [facility] [address] [place] [address], [facility] [address] [place] [address] documented in this encounter Visit Diagnoses Not on filedocumented in this encounter Additional Health Concerns AssessmentNoted TimePHQ-9 Depression Total Score: 10:00 AM EST documented as of this encounter Care Teams Team MemberRelationshipSpecialtyStart DateEnd Date Latrell Mckeon MD [address] [facility] [place] [address] PCP - GeneralFamily Medicine08/05/23 Latrell Mckeon MD [address] [place] [address] PCP - ACO [facility]08/16/24 Siomara Fitzgerald DO [address] [place] [address] Referring DpbbxxjmjRyndlwgkj42/21/24documented as of this encounter
--- OUTSIDE RECORDS SUMMARY | 2025-07-01 08:45 | XMS_ITS | Clinical Summary ---
Author Organization [facility] Address [facility] [place] [address] Care Team Providers Care Equipment Maintenance Superintendent Name Role Phone Katie Hairston MD Unavailable [phone] Latrell Mckeon MD Primary Care Provider [phone] Allergies No known active allergies Medications MedicationSigDispense [...] constipation.07/26/2024 Active Active Problems ProblemNoted DateDiagnosed DateElectrolyte bkqfwbvmixu76/17/2025Obesity, Class II, BMI 35-39.9007/24/2024S/P repair of paraesophageal rwutcq585Acute postoperative pain07/24/2024HTN (hypertension)07/23/2024 Assessment & Plan (07/23/2024 1:44 PM EST): -Managed on losartan -BP today 152/73 -EKG reviewed, NSR Tojgmdb3407/23/2024 Assessment & Plan (07/23/2024 1:51 PM EST): -Body mass index is 37.45 kg/m??. Screening for malignant neoplasm of colon07/23/2024Transient ischemic attack 07/23/2024GERD (gastroesophageal reflux disease)07/23/2024 Assessment & Plan (07/23/2024 1:45 PM EST): -Managed on PPI, Pepcid Hiatal fgpmmo7707/23/2024Former qkwyju1807/23/2024 Assessment & Plan (07/23/2024 1:52 PM EST): [...] EST): -Follows OP with pain management Paraesophageal kjnbad5704/29/20240655Ceglgg14/25/1592Eenctzgai05/16/2024Senile xobpebro77/02/0443Mgassdtxzor27/04/2024OPD (chronic obstructive pulmonary disease)08/11/20237496Okjyqjoerrxp69/02/2024 Assessment & Plan (07/23/2024 1:45 PM EST): -Continue statin Encounter for long-term (current) use of npkccqsxeeh31/02/2024Lower extremity edema08/11/2023OSA (obstructive sleep apnea)08/11/2023 Assessment & Plan (07/23/2024 1:43 PM EST): -Compliant with CPAP Osteopenia of lumbar spine08/11/2023rimary cswubwep14/02/2024 Assessment & Plan (07/23/2024 1:50 PM EST): -Managed on Ambien Primary osteoarthritis of both knees08/11/2023Seasonal allergic rhinitis due to rhngqk3608/11/2023TIA (transient ischemic attack)08/11/2023 Assessment & Plan (07/23/2024 1:45 PM EST): -Noted in EMR however patient denies Hiatal hernia with gastroesophageal reflux disease without bgvhgcwaomy40/02/2024 Psychophysiologic ylerrtbx61/17/2022ersonal history of urinary (tract) fcenrefpdj27/17/2022ough, hvlosgrrjmr67/16/2022hronic obstructive pulmonary ogahatu7911/04/2021 Assessment & Plan (07/23/2024 1:43 PM EST): -Continue inhalers, has not needed to use albuterol in the past 3-4 months -SpO2 99% on RA -Follows OP with PCP -Patient in NAD -Admits to chronic exertional dyspnea, not new or worsening -Former heavy smoker -CXR pending Contact with and (suspected) exposure to covid-19011/04/2021hortness of breath 11/04/2021yspnea, ayrvzywvoyp00/26/2022Lumbar ilofwxeucvqkd53/10/2022bdominal kdrnzd2609/16/2021ther specified disorders of bone density and structure, other site09/16/2021symptomatic menopausal state09/16/2021ain in right ankle and joints of right foot09/16/2021 Resolved Problems ProblemNoted DateDiagnosed DateResolved DateBMI 39.0-39.9,adult07/23/2024 07/23/2024lass 2 severe obesity due to excess calories with serious comorbidity and body mass index (BMI) of38.0 to 38.9 in adultEssential hypertension, ectbbv93Morbid obesity due to excess calories HypertensionMorbid (severe) obesity due to excess acakihnj34 Encounters DateTypeDepartmentCare QefkNuwouqypsot45/05/2025Telephone General Surgery [address] [place] [address] Katarzyna Grover APRN.CNP Patient Lcwxpn3006/13/2025Telephone General Surgery [address] [place] [address] Katarzyna Grover APRN.CNP Patient Csgwfb8706/13/2025 Patient Msg General Surgery [address] [place] [phone] Katarzyna Grover APRN.CNP 06/12/2025Telephone General Surgery [address] [place] [address] Katarzyna Grover APRN.NUCLEAR POWER REACTOR OPERATOR Opened In Error04/23/2025 11:00 AM EDTOffice Visit General Surgery [address] [place] [address] Katarzyna Grover APRN.CNP Paraesophageal hernia (Primary Dx)04/22/2025Travelfrom Last 3 Months Family History Medical HistoryRelationCommentsAnesthesia ProblemsNo Family History Social History Tobacco UseTypesPacks/DayYears UsedDateSmoking Tobacco: PhlpttDsiurhjdvt27707 - 1967Smokeless Tobacco: Never Tobacco Cessation:Counseling Given: Not Answered Comments:Age 17 - 61, 1/2 - 2 PPD, quit while at 2 PPD Alcohol UseStandard Drinks/WeekCommentsNot Currently0 (1 standard drink = 0.6 oz pure alcohol)Area Deprivation IndexAnswerDate RecordedNational Score (1-100), lower number is lower jzfs167104/29/2024State Score (1-10), lower number is lower szwj405ata from: https://www.neighborhoodatlas.medicine.[facility].edu/. Last address used for zviwprdaevw[address] [place], [place] [address]04/29/2024CommentsNoSex and Gender InformationValueDate RecordedSex Assigned at BirthNot on fileLegal Sex Thgybk4304/02/2024 3:17 PM EDTGender TxweulwdMegthf60/15/2024 1:21 PM EDTSexual OrientationNot on file Last Filed Vital Signs Vital SignReadingTime TakenCommentsBlood Pmyrstso566/7904/23/2025 11:12 AM EDT Vuxxp046004/23/2025 11:12 AM CLABeckdfrmifj47.1 ??C (97 ??F)04/23/2025 11:12 AM EDTRespiratory Azdd919907/26/2024 9:55 AM ESTOxygen Xrnccnaczx23%07/26/2024 9:55 AM ESTInhaled Oxygen Concentration--Cruqin400.4 kg (228 lb)04/23/2025 11:12 AM EAARgkqvw708.1 cm (5' 5 )04/23/2025 11:12 AM EDTBody Mass Index37.9404/23/2025 11:12 AM EDT Plan of Treatment Health MaintenanceDue DateLast DoneCommentsAnnual PCP Team Chronic Disease Visit 09/21/1969Hepatitis C Tqtwmjdqd32/15/1970DTaP,Tdap,Td Vaccine (1 - Tdap) 09/21/1970CT Gactlrnqfewz05/15/1997Cologuard (FIT-DNA)09/21/1996Colonoscopy 09/21/1996Colorectal Cancer Knoryllcn90/15/1997Fecal Occult Blood09/21/1996Lipid Uytfjbjtk19/15/8721Wnyrccjzmcwnw31/15/1997Shingrix Vaccine (1 of 2)09/21/2001 Medicare Annual Wellness Visit09/07/2016Bone Density Bqggmsebq95/15/2017Advance Directive Mwfoapiblt83/01/2025ovid-19 Vaccine ( season)2025 03/27/2023, 05/03/2022, 04/12/2021, Additional history existsInfluenza Vaccine (#1)511/12/2023, 05/03/2022, 04/12/2021, Additional history exists Mammogram Afcfycomf03Diabetes Pbiwhbkbj40/17/20232207/26/2024, 07/24/2024, 07/23/2024Pneumococcal Vaccine: 50+Dmcimynuh20/19/2022, 05/16/2019, 01/31/2018RSV SvtebruFkqcwywoj41/18/2023 Medical Devices ImplantedTypeAreaManufacturerDevice IdentifierShelf Expiration DateModel / Serial / LotFelt Thk1.65mm Ptfe 4x.5in Cardiovascular Sterile - [id number] Im[facility]/A: AbdomenBARD PERIPHERAL VSNLQGYU02/28/[id number] / / [id number] Procedures Procedure NamePriorityDate/TimeAssociated DiagnosisCommentsPT ED PATIENT SNQEWSSRDHM13/02/2025 BASIC METABOLIC IMWMCOuevnwf18/17/2025 1:13 AM EST from Last 3 Months or Most Recently Relevant to Health Maintenance Results * PT ED PATIENT INFORMATION (04/10/2025)Specimen (Source)Anatomical Location / LateralityCollection Method / VolumeCollection TimeReceived Time04/10/2025 Narrative SAKSHI - 05/26/2025 Provider MILES your patient SHEY BOSS has not started their Sakshi program, time has . Sakshi program: PATIENT SAFETY INSTRUCTIONS FOR HEALTHCARE SETTINGS Authorizing ProviderResult TypeResult StatusJairmoiz Grover METAL MINE INSPECTOR.CNPEMMIFinal ResultPerforming OrganizationAddressCity/State/ZIP CodePhone Number SAKSHI * (ABNORMAL) BASIC METABOLIC PANEL (07/26/2024 1:13 AM EST)ComponentValueRef RangeTest MethodAnalysis TimePerformed AtPathologist NyymhlkurFjbaloj717(H)74 - 99 mg/dL07/26/2024 2:33 AM [facility] LABComment: The [place] Diabetes Association (ADA) provides guidance for cutoff [...] Standards of Medical Care in Diabetes 2016, [place] Diabetes Association. Diabetes Care. 2016.39(Suppl 1). ZJD835 - 21 mg/dL07/26/2024 2:33 AM [facility] Creatinine0.920.58 - 0.96 mg/dL07/26/2024 2:33 AM [facility] NRPPtvvxx640046 - 144 mmol/L07/26/2024 2:33 AM [facility] LABPotassium3.4(L)3.7 - 5.1 mmol/L07/26/2024 2:33 AM [facility] TCCWcrqnjfg57686 - 107 mmol/L07/26/2024 2:33 AM [facility] HWIAK83180 - 30 mmol/L07/26/2024 2:33 AM [facility] LABAnion Kdg358 - 15 mmol/L07/26/2024 2:33 AM [facility] LABCalcium, Total9.08.5 - 10.2 mg/dL07/26/2024 2:33 AM [facility] LABEstimated Glomerular Filtration Rate66>=60 mL/min/1.73m 07/26/2024 2:33 AM ESTCHERRINGTON HOSPITAL LABComment:Estimated Glomerular Filtration Rate (eGFR) is [...] VolumeCollection TimeReceived TimeBloodBLOOD SPECIMEN / UnknownVenipuncture / Wzxitob1407/26/2024 1:13 AM EST07/26/2024 1:22 AM EST Narrative Authorizing ProviderResult TypeResult StatusLuciano TastaldiLABORATORYFinal ResultPerforming OrganizationAddressCity/State/ZIP CodePhone Number [facility] [address] [place] [address], from Last 3 Months or Most Recently Relevant to Health Maintenance Insurance Care Teams Team MemberRelationshipSpecialtyStart DateEnd Date Latrell Mckeon MD [address] [place] [address] PCP - GeneralFamily Lbuyqgpf58/23/24 Katie Hairston MD [address] [facility] [address] [place] [address] Internal Medicine04/02/24
--- OUTSIDE RECORDS SUMMARY | 2025-07-01 08:45 | XMS_ITS | Encounter Summary ---
Author Organization [facility] Address [address] [place] [address] Care Team Providers Care Radio Reporter Name Role Phone Latrell Mckeon MD Primary Care Provider [phone] Siomara Fitzgerald DO Unavailable [phone] Latrell Mckeon MD Unavailable Encounter Details DateTypeDepartmentCare Team (Latest Contact Info)Pjmgpxnpyem78/19/2025Travel Social History Tobacco UseTypesPacks/DayYears UsedDateSmoking Tobacco: FormerCigarettes1.270.7 07/10/1967 - 01/08/2012Smokeless Tobacco: NeverAlcohol UseStandard Drinks/Week CommentsYes4 (1 standard drink = 0.6 oz pure alcohol)Caffeine: 2-3 cups per day B1300 Health LiteracyAnswerDate RecordedHow often do you need to have someone help you when you read instructions, pamphlets, or other written material from your doctor or pharmacy?Czebhtyve70/26/2024Social Connection and Isolation Panel AnswerDate RecordedIn a typical week, how many times do you talk on the phone with family, friends, or neighbors?More than three times a week02/02/2024How often do you get together with friends or relatives?Three times a week02/02/2024 How often do you attend shinto or roman catholic services?Patient zphkdbyc11/26/2024 Do you belong to any clubs or organizations such as shinto groups, unions, fraternal or athletic groups, or school groups?Patient owmwxpnz25/26/2024How often do you attend meetings of the clubs or organizations you belong to?Patient tibwtznr71/26/2024re you , , , , never , or living with a partner?Never yilvoxy0602/02/2024UDIT-CAnswerDate RecordedQ1: How often do you have a drink containing alcohol?Monthly or less03/03/2024Q2: How many drinks containing alcohol do you have on a typical day when you are drinking?3 or Q3: How often do you have six or more drinks on one occasion?Less than ydjbtsa6003/03/2024Overall Financial Resource Strain (CARDIA) AnswerDate RecordedHow hard is it for you to pay for the very basics like food, housing, medical care, and heating?Patient /26/2024HQ-2AnswerDate RecordedPatient Health Questionnaire-2 Vxwwx831Finst[facility] of Occupational Health - Occupational Stress QuestionnaireAnswerDate RecordedDo you feel stress - tense, restless, nervous, or anxious, or unable to sleep at night because yourmind is troubled all the time - these days?To some jpnxyd5502/02/2024 Exercise Vital SignAnswerDate RecordedOn average, how many days per week do you engage in moderate to strenuous exercise (like a brisk walk)?Patient declined 02/02/2024On average, how many minutes do you engage in exercise at this level? Patient jxatnaoz81/26/2024Hunger Vital SignAnswerDate RecordedWithin the past 12 months, you worried that your food would run out before you got the money to buy more.Patient esvesqaz80/26/2024Within the past 12 months, the food you [...] or living in a long term (including now)?No4CommentsUnknownSex and Gender InformationValueDate RecordedSex Assigned at BirthNot on fileLegal SexFemale 09/21/2022 7:08 PM EDTGender IdentityNot on fileSexual OrientationNot on file documented as of this encounter Plan of Treatment DateTypeDepartmentCare Team (Latest Contact Info)Ffgsadnxwqz44/05/2026 9:50 AM ESTOffice Visit [facility] [address] [facility] [address] [place] [address] Layla Houston MD 112 [facility] 130 [place] [address] 07/30/2025 10:15 AM ESTOffice Visit [facility] 703 [facility] 150 [place] [address] Robbin José MD 703 [facility] 150 [place] [address] documented as of this encounter Visit Diagnoses Not on filedocumented in this encounter Additional Health Concerns AssessmentNoted TimePHQ-9 Depression Total Score: 10:00 AM EST documented as of this encounter Care Teams Team MemberRelationshipSpecialtyStart DateEnd Date Latrell Mckeon MD [address] [place] [address] PCP - GeneralFamily Medicine08/05/23 Latrell Mckeon MD [address] [place] [address] PCP - ACO [facility]08/16/24 Siomara Fitzgerald DO [address] [place] [address] Referring YknfnjlxbCyboekycf01/21/24documented as of this encounter
--- OUTSIDE RECORDS SUMMARY | 2025-07-01 08:45 | XMS_ITS | Encounter Summary ---
Author Organization [facility] Address [address] [place] [address] Care Team Providers Care Adzing And Boring Machine Operator Name Role Phone Latrell Mckeon MD Primary Care Provider [phone] Siomara Fitzgerald DO Unavailable Latrell Mckeon MD Unavailable Encounter Details DateTypeDepartmentCare Team (Latest Contact Info)Ihazmzssrzl11/22/2025Travel Social History Tobacco UseTypesPacks/DayYears UsedDateSmoking Tobacco: FormerCigarettes1.270.7 07/10/1967 - 01/08/2012Smokeless Tobacco: NeverAlcohol UseStandard Drinks/Week CommentsYes4 (1 standard drink = 0.6 oz pure alcohol)Caffeine: 2-3 cups per day B1300 Health LiteracyAnswerDate RecordedHow often do you need to have someone help you when you read instructions, pamphlets, or other written material from your doctor or pharmacy?Cfwyjdwuh67/26/2024Social Connection and Isolation Panel AnswerDate RecordedIn a typical week, how many times do you talk on the phone with family, friends, or neighbors?More than three times a week02/02/2024How often do you get together with friends or relatives?Three times a week02/02/2024 How often do you attend episcopalian or hindu services?Patient duaityhu55/26/2024 Do you belong to any clubs or organizations such as episcopalian groups, unions, fraternal or athletic groups, or school groups?Patient iesicctp23/26/2024How often do you attend meetings of the clubs or organizations you belong to?Patient cosjtpny66/26/2024re you , , , , never , or living with a partner?Never uxaupvb1402/02/2024UDIT-CAnswerDate RecordedQ1: How often do you have a drink containing alcohol?Monthly or less03/03/2024Q2: How many drinks containing alcohol do you have on a typical day when you are drinking?3 or Q3: How often do you have six or more drinks on one occasion?Less than ipcdczo1903/03/2024Overall Financial Resource Strain (CARDIA) AnswerDate RecordedHow hard is it for you to pay for the very basics like food, housing, medical care, and heating?Patient hitvbtoo94/26/2024HQ-2AnswerDate RecordedPatient Health Questionnaire-2 Hewxx689Finmountainstar healthcare Blanket of Occupational Health - Occupational Stress QuestionnaireAnswerDate RecordedDo you feel stress - tense, restless, nervous, or anxious, or unable to sleep at night because yourmind is troubled all the time - these days?To some zundnl7802/02/2024 Exercise Vital SignAnswerDate RecordedOn average, how many days per week do you engage in moderate to strenuous exercise (like a brisk walk)?Patient declined 02/02/2024On average, how many minutes do you engage in exercise at this level? Patient oagaewdy61/26/2024Hunger Vital SignAnswerDate RecordedWithin the past 12 months, you worried that your food would run out before you got the money to buy more.Patient jxzwquac80/26/2024Within the past 12 months, the food you [...] homeless or living in a mcfp (including now)?No4CommentsUnknownSex and Gender InformationValueDate RecordedSex Assigned at BirthNot on fileLegal SexFemale 09/21/2022 7:08 PM EDTGender IdentityNot on fileSexual OrientationNot on file documented as of this encounter Plan of Treatment DateTypeDepartmentCare Team (Latest Contact Info)Vrrifxrdvqe23/05/2026 9:50 AM ESTOffice Visit [facility] [address] [facility] [address] [place] [address] Layla Houston MD 112 [facility] 130 [place] [address] 07/30/2025 10:15 AM ESTOffice Visit [facility] 703 [facility] 150 [place] [address] Robbin José MD 703 [facility] 150 [place] [address] documented as of this encounter Visit Diagnoses Not on filedocumented in this encounter Additional Health Concerns AssessmentNoted TimePHQ-9 Depression Total Score: 10:00 AM EST documented as of this encounter Care Teams Team MemberRelationshipSpecialtyStart DateEnd Date Latrell Mckeon MD [address] [place] [address] PCP - GeneralFamily Medicine08/05/23 Latrell Mckeon MD [address] [place] [address] PCP - [facility]08/16/24 Siomara Fitzgerald DO [address] [place] [address] Referring VofdtfaojUbylgywui61/21/24documented as of this encounter
--- OUTSIDE RECORDS SUMMARY | 2025-07-01 08:45 | XMS_ITS | Encounter Summary ---
Author Organization [facility] Address [address] [place] [address] Care Team Providers Care Copper Plate Printer Name Role Phone Latrell Mckeon MD Primary Care Provider [phone] Siomara Fitzgerald DO Unavailable [phone] Latrell Mckeon MD Unavailable Encounter Details DateTypeDepartmentCare Team (Latest Contact Info)Qmiacxmbymx85/15/2025External Result Encounter [facility] External Department Unsolicited Robbin José MD [address] [address] Social History Tobacco UseTypesPacks/DayYears UsedDateSmoking Tobacco: FormerCigarettes1.270.7 07/10/1967 - 01/08/2012Smokeless Tobacco: NeverAlcohol UseStandard Drinks/Week CommentsYes4 (1 standard drink = 0.6 oz pure alcohol)Caffeine: 2-3 cups per day B1300 Health LiteracyAnswerDate RecordedHow often do you need to have someone help you when you read instructions, pamphlets, or other written material from your doctor or pharmacy?Ahdvemydg18/26/2024Social Connection and Isolation Panel AnswerDate RecordedIn a typical week, how many times do you talk on the phone with family, friends, or neighbors?More than three times a week02/02/2024How often do you get together with friends or relatives?Three times a week02/02/2024 How often do you attend gnosticist or tenriism services?Patient dqgoandi76/26/2024 Do you belong to any clubs or organizations such as gnosticist groups, unions, fraternal or athletic groups, or school groups?Patient arhpznqs88/26/2024How often do you attend meetings of the clubs or organizations you belong to?Patient spnhpuhj01/26/2024re you , , , , never , or living with a partner?Never ucnfkxb4702/02/2024UDIT-CAnswerDate RecordedQ1: How often do you have a drink containing alcohol?Monthly or less03/03/2024Q2: How many drinks containing alcohol do you have on a typical day when you are drinking?3 or Q3: How often do you have six or more drinks on one occasion?Less than uetrlxw8003/03/2024Overall Financial Resource Strain (CARDIA) AnswerDate RecordedHow hard is it for you to pay for the very basics like food, housing, medical care, and heating?Patient akkqvyoa09/26/2024HQ-2AnswerDate RecordedPatient Health Questionnaire-2 Blvom699Finmount[facility] hospital [place] of Occupational Health - Occupational Stress QuestionnaireAnswerDate RecordedDo you feel stress - tense, restless, nervous, or anxious, or unable to sleep at night because yourmind is troubled all the time - these days?To some hcnqka8302/02/2024 Exercise Vital SignAnswerDate RecordedOn average, how many days per week do you engage in moderate to strenuous exercise (like a brisk walk)?Patient declined 02/02/2024On average, how many minutes do you engage in exercise at this level? Patient zmnxqxiy42/26/2024Hunger Vital SignAnswerDate RecordedWithin the past 12 months, you worried that your food would run out before you got the money to buy more.Patient ekvtzfdr07/26/2024Within the past 12 months, the food you [...] Plan of Treatment DateTypeDepartmentCare Team (Latest Contact Info)Yopumffpsmb49/05/2026 9:50 AM ESTOffice Visit [facility] [address] [facility] [address] [place] [address] Layla Houston MD 112 [facility] 130 [place] [address] 07/30/2025 10:15 AM ESTOffice Visit [facility] [address] [address] Robbin José MD 703 [facility] [address] [place] [address] documented as of this encounter Procedures Procedure NamePriorityDate/TimeAssociated DiagnosisCommentsHEMOGRAM CBC WITHOUT DIFF ([facility])Vetbwys6506/23/2025 9:22 AM EST documented in this encounter Results * (ABNORMAL) HEMOGRAM CBC WITHOUT DIFF ([facility]) (06/23/2025 9:22 AM EST)Component ValueRef RangeTest MethodAnalysis TimePerformed AtPathologist SignatureWBC6.2 3.8 - 11.6 [CFU]/mL06/23/2025 9:44 AM [facility] CtrRBC3.66 3.60 - 5.00 10*6/uL06/23/2025 9:44 AM [facility] QLJESEOQBV07.911.8 - 15.4 g/dL06/23/2025 9:44 AM [facility] NwmFPTFUVBSFW49.9(L)34.0 - 46.4 %06/23/2025 9:44 AM [facility] XogFSN55.780 - 100 fL06/23/2025 9:44 AM [facility] SicITK51.624.7 - 34.3 pg06/23/2025 9:44 AM [facility] MCHC35.2(H)32.0 - 35.0 g/dL06/23/2025 9:44 AM [facility] CtrRED CELL DISTRIBUTION WIDTH, RDW14.511.9 - 15.3 %06/23/2025 9:44 AM [facility] CtrPLATELET SSXEL000438 - 450 10*3/uL06/23/2025 9:44 AM [facility] CtrMEAN PLATELET VOLUME, MPV8.36.3 - 10.7 fL06/23/2025 9:44 AM [facility] CtrSpecimen (Source) Anatomical Location / LateralityCollection Method / VolumeCollection Time Received TimeBlood (Blood)06/23/2025 9:22 AM EST06/23/2025 9:37 AM EST Narrative Authorizing ProviderResult TypeResult StatusAlbert Arnav Cárdenas MDLAB BLOOD ORDERABLESFinal ResultPerforming OrganizationAddressCity/State/ZIP CodePhone Number COUNTS INCLUDE 234 BEDS AT THE [facility] [address] [place] [address], [facility] [address] [place] [address] documented in this encounter Visit Diagnoses Not on filedocumented in this encounter Additional Health Concerns AssessmentNoted TimePHQ-9 Depression Total Score: 10:00 AM EST documented as of this encounter Care Teams Team MemberRelationshipSpecialtyStart DateEnd Date Latrell Mckeon MD [address] [facility] [place] [phone] PCP - GeneralFamily Medicine1/27/24 Latrell Mckeon MD [address] [facility] [place] [address] PCP - [facility]08/16/24 Siomara Fitzgerald DO [address] [place] [address] Referring OzzhytdtfPkbzcjolp01/21/24documented as of this encounter
--- OUTSIDE RECORDS SUMMARY | 2025-07-01 08:45 | XMS_ITS | Encounter Summary ---
Author Organization [facility] Address [address] [place] [address] Care Team Providers Care Package Dye Stand Loader Name Role Phone Latrell Mckeon MD Primary Care Provider [phone] Siomara Fitzgerald DO Unavailable [phone] Latrell Mckeon MD Unavailable Encounter Details DateTypeDepartmentCare Team (Latest Contact Info)Rqcgrlunhfz06/15/2025External Result Encounter [facility] External Department Unsolicited Robbin José MD [address] [address] Social History Tobacco UseTypesPacks/DayYears UsedDateSmoking Tobacco: FormerCigarettes1.270.7 07/10/1967 - 01/08/2012Smokeless Tobacco: NeverAlcohol UseStandard Drinks/Week CommentsYes4 (1 standard drink = 0.6 oz pure alcohol)Caffeine: 2-3 cups per day B1300 Health LiteracyAnswerDate RecordedHow often do you need to have someone help you when you read instructions, pamphlets, or other written material from your doctor or pharmacy?Zybbxfuvz16/26/2024Social Connection and Isolation Panel AnswerDate RecordedIn a typical week, how many times do you talk on the phone with family, friends, or neighbors?More than three times a week02/02/2024How often do you get together with friends or relatives?Three times a week02/02/2024 How often do you attend restoration or mandaeism services?Patient piownoxx83/26/2024 Do you belong to any clubs or organizations such as restoration groups, unions, fraternal or athletic groups, or school groups?Patient syukwotm04/26/2024How often do you attend meetings of the clubs or organizations you belong to?Patient nddpxcmi11/26/2024re you , , , , never , or living with a partner?Never snhfpfb6302/02/2024UDIT-CAnswerDate RecordedQ1: How often do you have a drink containing alcohol?Monthly or less03/03/2024Q2: How many drinks containing alcohol do you have on a typical day when you are drinking?3 or Q3: How often do you have six or more drinks on one occasion?Less than ffubkhs6903/03/2024Overall Financial Resource Strain (CARDIA) AnswerDate RecordedHow hard is it for you to pay for the very basics like food, housing, medical care, and heating?Patient azvnaedv79/26/2024HQ-2AnswerDate RecordedPatient Health Questionnaire-2 Vhlgc577Finuniversity of [facility] [place] of Occupational Health - Occupational Stress QuestionnaireAnswerDate RecordedDo you feel stress - tense, restless, nervous, or anxious, or unable to sleep at night because yourmind is troubled all the time - these days?To some qbkjvq7902/02/2024 Exercise Vital SignAnswerDate RecordedOn average, how many days per week do you engage in moderate to strenuous exercise (like a brisk walk)?Patient declined 02/02/2024On average, how many minutes do you engage in exercise at this level? Patient sqoabero23/26/2024Hunger Vital SignAnswerDate RecordedWithin the past 12 months, you worried that your food would run out before you got the money to buy more.Patient obyzugar77/26/2024Within the past 12 months, the food you [...] homeless or living in a correction (including now)?No02/02/2024CommentsUnknownSex and Gender InformationValueDate RecordedSex Assigned at BirthNot on fileLegal SexFemale 09/21/2022 7:08 PM EDTGender IdentityNot on fileSexual OrientationNot on file documented as of this encounter Plan of Treatment DateTypeDepartmentCare Team (Latest Contact Info)Dzwrvukmvsy33/05/2026 9:50 AM ESTOffice Visit [facility] [address] [facility] [address] [place] [address] Layla Houston MD [address] [facility] 130 [place] [address] 07/30/2025 10:15 AM ESTOffice Visit [facility] [address] [address] Robbin José MD 703 [facility] 150 [place] [address] documented as of this encounter Procedures Procedure NamePriorityDate/TimeAssociated DiagnosisCommentsHEPATIC FUNCTION ZMRUPYcvszin56/15/2025 9:22 AM EST documented in this encounter Results * (ABNORMAL) Hepatic function panel (06/23/2025 9:22 AM EST)ComponentValueRef RangeTest MethodAnalysis TimePerformed AtPathologist SignatureTOTAL PROTEIN6.6 6.4 - 8.9 g/dL06/23/2025 10:06 AM [facility] CtrALBUMIN LEVEL3.3(L)3.5 - 5.7 g/dL06/23/2025 10:06 AM [facility] GLOBULIN3.3g/dL06/23/2025 10:06 AM [facility] ALBUMIN/GLOBULIN RATIO1.012 10:06 AM [facility] BILIRUBIN,TOTAL1.7(H)0.3 - 1.0 mg/dL06/23/2025 10:06 AM [facility] CtrComment: Samples from patients who have taken Naproxen have shown spurious elevation in Total Bilirubin levels. ??A metabolite of Naproxen, O-desmethylnaproxen, has been shown to interfere with the Jendrassik-Grof method for measuring Total Bilirubin. BILIRUBIN,DIRECT1.00(H)0.03 - 0.18 mg/dL06/23/2025 10:06 AM [facility] CtrBILIRUBIN,INDIRECT0.7mg/dL06/23/2025 10:06 AM [facility] CtrASPARTATE AMINO QSEAVMAJPYS423(H)13 - 39 U/L108/24/2024 10:06 AM [facility] CtrALANINE ZFHDKJALNOVWMMWI181(H)7 - 52 U/L 06/23/2025 10:06 AM [facility] CtrALKALINE MGYHVOTRAUZ744(H) 34 - 104 U/L108/24/2024 10:06 AM [facility] CtrSpecimen (Source)Anatomical Location / LateralityCollection Method / VolumeCollection TimeReceived TimeOtherTopography unknown / Umqsbqc3106/23/2025 9:22 AM EST 06/23/2025 9:37 AM EST Narrative Authorizing ProviderResult TypeResult StatusAlbert Arnav Cárdenas MDLAB BLOOD ORDERABLESFinal ResultPerforming OrganizationAddressCity/State/ZIP CodePhone Number [facility] [address] [place] [address], [facility] [address] [place] [address] documented in this encounter Visit Diagnoses Not on filedocumented in this encounter Additional Health Concerns AssessmentNoted TimePHQ-9 Depression Total Score: 402 10:00 AM EST documented as of this encounter Care Teams Team MemberRelationshipSpecialtyStart DateEnd Date Latrell Mckeon MD [address] [place] [address] [facility] - [facility] Latrell Mckeon MD [address] [place] [address] PCP - [facility]08/16/24 Siomara Fitzgerald DO [address] [place] [address] Referring RuxczwmljZtnzqgvxg81/21/24documented as of this encounter
== END 2025-07-01 08:42 | disposition home or self-care (01) ==
LOC: FL 08:41
PROVIDERS: PCP Family Medicine
DX: K44.9 Diaphragmatic hernia without obstruction or gangrene (principal); K21.9 Gastro-esophageal reflux disease without esophagitis
CPT/HCPCS: 74246; 76120

== ENCOUNTER 2025-07-07 07:26 | Outpatient (OUT) | payer MEDICARE, OTHER, SELFPAY ==
--- OUTSIDE RECORDS SUMMARY | 2025-06-30 09:45 | XMS_ITS | Encounter Summary ---
Author Organization [facility] Address [address] [place] [address] Care Team Providers Care Horseshoer Name Role Phone Latrell Mckeon MD Primary Care Provider [phone] Siomara Fitzgerald DO Unavailable [phone] Latrell Mckeon MD Unavailable Reason for Visit * XlgbpkItvwyxkp1es po Lap nikolas Encounter Details DateTypeDepartmentCare Team (Latest Contact Info)Hcwktseaccf10/22/2025 9:45 AM ESTOffice Visit [facility] [address] [address] Robbin José MD [address] [address] Calculus of gallbladder with acute [...] other written material from your doctor or pharmacy?Ekfzbiqjb83/26/2024Social Connection and Isolation Panel AnswerDate RecordedIn a typical week, how many times do you talk on the phone with family, friends, or neighbors?More than three times a week02/02/2024How often do you get together with friends or relatives?Three times a week02/02/2024 How often do you attend nondenominational or jewish services?Patient tqnkyqhg05/26/2024 Do you belong to any clubs or organizations such as nondenominational groups, unions, fraternal or athletic groups, or school groups?Patient ouklyico26/26/2024How often do you attend meetings of the clubs or organizations you belong to?Patient /26/2024re you , , , , never , or living with a partner?Never mldsfqv9402/02/2024UDIT-CAnswerDate RecordedQ1: How often do you have a drink containing alcohol?Monthly or less03/03/2024Q2: How many drinks containing alcohol do you have on a typical day when you are drinking?3 or Q3: How often do you have six or more drinks on one occasion?Less than orodqke8703/03/2024Overall Financial Resource Strain (CARDIA) AnswerDate RecordedHow hard is it for you to pay for the very basics like food, housing, medical care, and heating?Patient /26/2024HQ-2AnswerDate RecordedPatient Health Questionnaire-2 Chmcf652Finlifepoint hospitals [place] of Occupational Health - Occupational Stress QuestionnaireAnswerDate RecordedDo you feel stress - tense, restless, nervous, or anxious, or unable to sleep at night because yourmind is troubled all the time - these days?To some ixjqfx2502/02/2024 Exercise Vital SignAnswerDate RecordedOn average, how many days per week do you engage in moderate to strenuous exercise (like a brisk walk)?Patient declined 02/02/2024On average, how many minutes do you engage in exercise at this level? Patient ubdcpcsm26/26/2024Hunger Vital SignAnswerDate RecordedWithin the past 12 months, you worried that your food would run out before you got the money to buy more.Patient jsdykjyt57/26/2024Within the past 12 months, the food you [...] homeless or living in a residential (including now)?No02/02/2024CommentsUnknownSex and Gender InformationValueDate RecordedSex Assigned at BirthNot on fileLegal SexFemale 09/21/2022 7:08 PM EDTGender IdentityNot on fileSexual OrientationNot on file documented as of this encounter Last Filed Vital Signs Vital SignReadingTime TakenCommentsBlood Hzptbcwh258/6206/30/2025 9:48 AM EST Pulse--Temperature--Respiratory Rate--Oxygen Saturation--Inhaled Oxygen Concentration--Lmvxht361 kg (227 lb)06/30/2025 9:48 AM BYWFijbpb758.6 cm (5' 4 ) 06/30/2025 9:48 AM [...] stones. She then underwent ERCP with Dr. nSyder. The patient states that stones were removed [...] Plan of Treatment DateTypeDepartmentCare Team (Latest Contact Info)Owgzesyabsu93/05/2026 9:50 AM ESTOffice Visit [facility] [place] [facility] [address] [facility] 130 [place] [phone] Layla Houston MD [address] [facility] 130 [place] [address] 07/30/2025 10:15 AM ESTOffice Visit [facility] 703 [facility] 150 [place] [address] Robbin José MD 703 [facility] 150 [place] [address] documented as of this encounter Visit Diagnoses Diagnosis Calculus of gallbladder with acute cholecystitis without obstruction- Primary Choledocholithiasis Calculus of bile duct without mention of cholecystitis or obstruction documented in this encounter Additional Health Concerns AssessmentNoted TimePHQ-9 Depression Total Score: 10:00 AM EST documented as of this encounter Care Teams Team MemberRelationshipSpecialtyStart DateEnd Date Latrell Mckeon MD [address] [place] [address] PCP - GeneralFamily Medicine08/05/23 Latrell Mckeon MD [address] [place] [address] PCP - ACO Reach08/16/24 Siomara Fitzgerald DO [address] [place] [address] Referring IfanlrtlqOijzspmza55/21/24documented as of this encounter
--- OUTSIDE RECORDS SUMMARY | 2025-07-07 07:30 | XMS_ITS | Clinical Summary ---
Author Organization [facility] Address [facility] [place] [address] Care Team Providers Care Project Estimator Name Role Phone Katie Hairston MD Unavailable [phone] Latrell Mckeon MD Primary Care Provider [phone] Allergies No known active allergies Medications MedicationSigDispense [...] constipation.07/26/2024 Active Active Problems ProblemNoted DateDiagnosed DateElectrolyte /17/2025Obesity, Class II, BMI 35-39.9007/24/2024S/P repair of paraesophageal trdgrl575Acute postoperative pain07/24/2024HTN (hypertension)07/23/2024 Assessment & Plan (07/23/2024 1:44 PM EST): -Managed on losartan -BP today 152/73 -EKG reviewed, NSR Watjwai2607/23/2024 Assessment & Plan (07/23/2024 1:51 PM EST): -Body mass index is 37.45 kg/m??. Screening for malignant neoplasm of colon07/23/2024Transient ischemic attack 07/23/2024GERD (gastroesophageal reflux disease)07/23/2024 Assessment & Plan (07/23/2024 1:45 PM EST): -Managed on PPI, Pepcid Hiatal dcecdh8607/23/2024Former oeslhe7007/23/2024 Assessment & Plan (07/23/2024 1:52 PM EST): [...] EST): -Follows OP with pain management Paraesophageal zjwkkt5704/29/20246527Vwwuue50/25/6344Idzhtazux34/16/2024Senile hvpyqhqs52/02/4964Axvxqvgcsev78/04/2024OPD (chronic obstructive pulmonary disease)08/11/20239321Qeleyzpptpmr07/02/2024 Assessment & Plan (07/23/2024 1:45 PM EST): -Continue statin Encounter for long-term (current) use of randantuatm79/02/2024Lower extremity edema08/11/2023OSA (obstructive sleep apnea)08/11/2023 Assessment & Plan (07/23/2024 1:43 PM EST): -Compliant with CPAP Osteopenia of lumbar spine08/11/2023rimary iqkzekty67/02/2024 Assessment & Plan (07/23/2024 1:50 PM EST): -Managed on Ambien Primary osteoarthritis of both knees08/11/2023Seasonal allergic rhinitis due to irhlqa8808/11/2023TIA (transient ischemic attack)08/11/2023 Assessment & Plan (07/23/2024 1:45 PM EST): -Noted in EMR however patient denies Hiatal hernia with gastroesophageal reflux disease without ktqxezlkbeh34/02/2024 Psychophysiologic iysnhlyn94/17/2022ersonal history of urinary (tract) pebvrestpp28/17/2022ough, sbjtbbjlhiw21/16/2022hronic obstructive pulmonary bcmaatr9611/04/2021 Assessment & Plan (07/23/2024 1:43 PM EST): -Continue inhalers, has not needed to use albuterol in the past 3-4 months -SpO2 99% on RA -Follows OP with PCP -Patient in NAD -Admits to chronic exertional dyspnea, not new or worsening -Former heavy smoker -CXR pending Contact with and (suspected) exposure to covid-19011/04/2021hortness of breath 11/04/2021yspnea, frtbhtlkpjy93/26/2022Lumbar hxvdwjhpactmt58/10/2022bdominal ycmqbo6809/16/2021ther specified disorders of bone density and structure, other site09/16/2021symptomatic menopausal state09/16/2021ain in right ankle and joints of right foot09/16/2021 Resolved Problems ProblemNoted DateDiagnosed DateResolved DateBMI 39.0-39.9,adult07/23/2024 07/23/2024lass 2 severe obesity due to excess calories with serious comorbidity and body mass index (BMI) of38.0 to 38.9 in adultEssential hypertension, sakdwj71Morbid obesity due to excess calories HypertensionMorbid (severe) obesity due to excess buooveyx72 Encounters DateTypeDepartmentCare YyvrYpyiikwrzln17/05/2025Telephone General Surgery [address] [place] [address] Katarzyna Grover APRN.CNP Patient Qusasj6606/13/2025Telephone General Surgery [address] [place] [address] Katarzyna Grover APRN.CNP Patient Miowgt0306/13/2025 Patient Msg General Surgery [address] [place] [id number] Katarzyna Grover APRN.CNP 06/12/2025Telephone General Surgery [address] [place] [address] Katarzyna Grover APRN.LAB ASSISTANT Opened In Error04/23/2025 11:00 AM EDTOffice Visit General Surgery [address] [place] [address] Katarzyna Grover APRN.CNP Paraesophageal hernia (Primary Dx)04/22/2025Travelfrom Last 3 Months Family History Medical HistoryRelationCommentsAnesthesia ProblemsNo Family History Social History Tobacco UseTypesPacks/DayYears UsedDateSmoking Tobacco: EjwbtzAamsxthdsq64014 - 1966Smokeless Tobacco: Never Tobacco Cessation:Counseling Given: Not Answered Comments:Age 17 - 61, 1/2 - 2 PPD, quit while at 2 PPD Alcohol UseStandard Drinks/WeekCommentsNot Currently0 (1 standard drink = 0.6 oz pure alcohol)Area Deprivation IndexAnswerDate RecordedNational Score (1-100), lower number is lower egje283704/29/2024State Score (1-10), lower number is lower gzkc674ata from: https://www.neighborhoodatlas.medicine.[facility].edu/. Last address used for quiiqydocef[address] [place], [place] [address]/29/2024CommentsNoSex and Gender InformationValueDate RecordedSex Assigned at BirthNot on fileLegal Sex Lttkio4004/02/2024 3:17 PM EDTGender XttgzzpzYdxost35/15/2024 1:21 PM EDTSexual OrientationNot on file Last Filed Vital Signs Vital SignReadingTime TakenCommentsBlood Ljwlrihn448/7904/23/2025 11:12 AM EDT Hohcb187604/23/2025 11:12 AM WKUPqifpmbcnex55.1 ??C (97 ??F)04/23/2025 11:12 AM EDTRespiratory Ferb692407/26/2024 9:55 AM ESTOxygen Vtlkjwncir03%07/26/2024 9:55 AM ESTInhaled Oxygen Concentration--Chiqsc360.4 kg (228 lb)04/23/2025 11:12 AM XQFTvjkyk161.1 cm (5' 5 )04/23/2025 11:12 AM EDTBody Mass Index37.9404/23/2025 11:12 AM EDT Plan of Treatment Health MaintenanceDue DateLast DoneCommentsAnnual PCP Team Chronic Disease Visit 09/21/1969Hepatitis C Jsaqvijvx48/15/1970DTaP,Tdap,Td Vaccine (1 - Tdap) 09/21/1970CT Adqrindmymls15/15/1997Cologuard (FIT-DNA)09/21/1996Colonoscopy 09/21/1996Colorectal Cancer Lodfsuify84/15/1997Fecal Occult Blood09/21/1996Lipid Agqubmfoc94/15/3129Skzeemvwhzkep87/15/1997Shingrix Vaccine (1 of 2)09/21/2001 Medicare Annual Wellness Visit09/07/2016Bone Density Gphiandsd65/15/2017Advance Directive Ezhockenzv23/01/2025ovid-19 Vaccine ( season)2025 03/27/2023, 05/03/2022, 04/12/2021, Additional history existsInfluenza Vaccine (#1)511/12/2023, 05/03/2022, 04/12/2021, Additional history exists Mammogram Heufarpmn09Diabetes Llpffyrxw04/17/88919007/26/2024, 07/24/2024, 07/23/2024Pneumococcal Vaccine: 50+Pnzechjzv56/19/2022, 05/16/2019, 01/31/2018RSV EeleyfsVqhlrypul75/18/2023 Medical Devices ImplantedTypeAreaManufacturerDevice IdentifierShelf Expiration DateModel / Serial / LotFelt Thk1.65mm Ptfe 4x.5in Cardiovascular Sterile - [id number] [facility]/A: AbdomenBARD PERIPHERAL SQNSOZQP43/28/[id number] / / [id number] Procedures Procedure NamePriorityDate/TimeAssociated DiagnosisCommentsPT ED PATIENT JOWVTHJLSBX78/02/2025 BASIC METABOLIC EFICZWjjnahl37/17/2025 1:13 AM EST from Last 3 Months or Most Recently Relevant to Health Maintenance Results * PT ED PATIENT INFORMATION (04/10/2025)Specimen (Source)Anatomical Location / LateralityCollection Method / VolumeCollection TimeReceived Time04/10/2025 Narrative SAKSHI - 05/26/2025 Provider MILES your patient SHEY BOSS has not started their Sakshi program, time has . Sakshi program: PATIENT SAFETY INSTRUCTIONS FOR HEALTHCARE SETTINGS Authorizing ProviderResult TypeResult StatusJairmoiz Grover FRETTED INSTRUMENTS INSPECTOR.CNPEMMIFinal ResultPerforming OrganizationAddressCity/State/ZIP CodePhone Number SAKSHI * (ABNORMAL) BASIC METABOLIC PANEL (07/26/2024 1:13 AM EST)ComponentValueRef RangeTest MethodAnalysis TimePerformed AtPathologist OsrmnbivlJtjwynw279(H)74 - 99 mg/dL07/26/2024 2:33 AM [facility] LABComment: The [place] Diabetes Association (ADA) provides guidance for cutoff [...] Standards of Medical Care in Diabetes 2016, [place] Diabetes Association. Diabetes Care. 2016.39(Suppl 1). LMR309 - 21 mg/dL07/26/2024 2:33 AM [facility] Creatinine0.920.58 - 0.96 mg/dL07/26/2024 2:33 AM [facility] LOGOaejvn197423 - 144 mmol/L07/26/2024 2:33 AM [facility] LABPotassium3.4(L)3.7 - 5.1 mmol/L07/26/2024 2:33 AM [facility] KXMUxxgpmfs32046 - 107 mmol/L07/26/2024 2:33 AM [facility] CKEID43754 - 30 mmol/L07/26/2024 2:33 AM [facility] LABAnion Ptk664 - 15 mmol/L07/26/2024 2:33 AM [facility] LABCalcium, Total9.08.5 - 10.2 mg/dL07/26/2024 2:33 AM [facility] LABEstimated Glomerular Filtration Rate66>=60 mL/min/1.73m 07/26/2024 2:33 AM ESTBEL[facility] LABComment:Estimated Glomerular Filtration Rate (eGFR) is [...] VolumeCollection TimeReceived TimeBloodBLOOD SPECIMEN / UnknownVenipuncture / Pyfotuy1607/26/2024 1:13 AM EST07/26/2024 1:22 AM EST Narrative Authorizing ProviderResult TypeResult StatusLuciano TastaldiLABORATORYFinal ResultPerforming OrganizationAddressCity/State/ZIP CodePhone Number [facility] [address] [place] [address], from Last 3 Months or Most Recently Relevant to Health Maintenance Insurance Care Teams Team MemberRelationshipSpecialtyStart DateEnd Date Latrell Mckeon MD [address] [place] [address] PCP - GeneralFamily Gytticuz97/23/24 Katie Hairston MD [address] [facility] [address] [place] [address] Internal Medicine04/02/24
--- OUTSIDE RECORDS SUMMARY | 2025-07-07 07:30 | XMS_ITS | Encounter Summary ---
Author Organization [facility] Address [address] [place] [address] Care Team Providers Care Cooker Sulfite Name Role Phone Latrell Mckeon MD Primary Care Provider [phone] Siomara Fitzgerald DO Unavailable [phone] Latrell Mckeon MD Unavailable Encounter Details DateTypeDepartmentCare Team (Latest Contact Info)Wzgayzgltum76/17/2025Orders Only [facility] [address] [address] Robbin José MD [address] [address] Social History Tobacco UseTypesPacks/DayYears UsedDateSmoking Tobacco: FormerCigarettes1.270.7 07/10/1967 - 01/08/2012Smokeless Tobacco: NeverAlcohol UseStandard Drinks/Week CommentsYes4 (1 standard drink = 0.6 oz pure alcohol)Caffeine: 2-3 cups per day B1300 Health LiteracyAnswerDate RecordedHow often do you need to have someone help you when you read instructions, pamphlets, or other written material from your doctor or pharmacy?Gwhcppjhn57/26/2024Social Connection and Isolation Panel AnswerDate RecordedIn a typical week, how many times do you talk on the phone with family, friends, or neighbors?More than three times a week02/02/2024How often do you get together with friends or relatives?Three times a week02/02/2024 How often do you attend sabianism or gnosticism services?Patient yuwtatmg15/26/2024 Do you belong to any clubs or organizations such as sabianism groups, unions, fraternal or athletic groups, or school groups?Patient /26/2024How often do you attend meetings of the clubs or organizations you belong to?Patient aampgivz87/26/2024re you , , , , never , or living with a partner?Never bghyjek7602/02/2024UDIT-CAnswerDate RecordedQ1: How often do you have a drink containing alcohol?Monthly or less03/03/2024Q2: How many drinks containing alcohol do you have on a typical day when you are drinking?3 or Q3: How often do you have six or more drinks on one occasion?Less than ggvreci8603/03/2024Overall Financial Resource Strain (CARDIA) AnswerDate RecordedHow hard is it for you to pay for the very basics like food, housing, medical care, and heating?Patient htttfnyv74/26/2024HQ-2AnswerDate RecordedPatient Health Questionnaire-2 Yabzn318Finhuntsman [facility] institute [place] of Occupational Health - Occupational Stress QuestionnaireAnswerDate RecordedDo you feel stress - tense, restless, nervous, or anxious, or unable to sleep at night because yourmind is troubled all the time - these days?To some gjkzxn9202/02/2024 Exercise Vital SignAnswerDate RecordedOn average, how many days per week do you engage in moderate to strenuous exercise (like a brisk walk)?Patient declined 02/02/2024On average, how many minutes do you engage in exercise at this level? Patient qgfmxhiq97/26/2024Hunger Vital SignAnswerDate RecordedWithin the past 12 months, you worried that your food would run out before you got the money to buy more.Patient vryrndwl63/26/2024Within the past 12 months, the food you [...] Plan of Treatment DateTypeDepartmentCare Team (Latest Contact Info)Gnuqqwpblyi33/05/2026 9:50 AM ESTOffice Visit [facility] [address] [facility] 130 [place] [address] Layla Houston MD 112 [facility] 130 [place] [address] 07/30/2025 10:15 AM ESTOffice Visit [facility] [address] [address] Robbin José MD [address] [place] [address] documented as of this encounter Procedures Procedure NamePriorityDate/TimeAssociated DiagnosisCommentsGENERAL PATHOLOGY Qarmpjg2306/22/2025 1:14 PM ESTdocumented in this encounter Results * GENERAL PATHOLOGY (06/22/2025 1:14 PM EST) Narrative Authorizing ProviderResult TypeResult StatusAlbert DOC FitchLINISYNCFinal Result documented in this encounter Visit Diagnoses Not on filedocumented in this encounter Additional Health Concerns AssessmentNoted TimePHQ-9 Depression Total Score: 10:00 AM EST documented as of this encounter Care Teams Team MemberRelationshipSpecialtyStart DateEnd Date Latrell Mckeon MD [address] [place] [address] [facility] Latrell Mckeon MD [address] [place] [address] PCP - [facility]08/16/24 Siomara Fitzgerald DO [address] [place] [address] Referring VkclhdpezChniylzeg47/21/24documented as of this encounter
--- OUTSIDE RECORDS SUMMARY | 2025-07-07 07:30 | XMS_ITS | Encounter Summary ---
Author Organization [facility] Address [address] [place] [address] Care Team Providers Care Boom Tender Name Role Phone Latrell Mckeon MD Primary Care Provider Siomara Fitzgerald DO Unavailable [phone] Latrell Mckeon MD Unavailable Encounter Details DateTypeDepartmentCare Team (Latest Contact Info)Goydalldodk31/15/2025External Result Encounter [facility] Unsolicited Robbin José MD [address] [address] Social History Tobacco UseTypesPacks/DayYears UsedDateSmoking Tobacco: FormerCigarettes1.270.7 07/10/1967 - 01/08/2012Smokeless Tobacco: NeverAlcohol UseStandard Drinks/Week CommentsYes4 (1 standard drink = 0.6 oz pure alcohol)Caffeine: 2-3 cups per day B1300 Health LiteracyAnswerDate RecordedHow often do you need to have someone help you when you read instructions, pamphlets, or other written material from your doctor or pharmacy?Gniqvvepm09/26/2024Social Connection and Isolation Panel AnswerDate RecordedIn a typical week, how many times do you talk on the phone with family, friends, or neighbors?More than three times a week02/02/2024How often do you get together with friends or relatives?Three times a week02/02/2024 How often do you attend anglican or jewish services?Patient abqmqdvb84/26/2024 Do you belong to any clubs or organizations such as anglican groups, unions, fraternal or athletic groups, or school groups?Patient eeiigsok46/26/2024How often do you attend meetings of the clubs or organizations you belong to?Patient tbmuvshm27/26/2024re you , , , , never , or living with a partner?Never wxxmqak6302/02/2024UDIT-CAnswerDate RecordedQ1: How often do you have a drink containing alcohol?Monthly or less03/03/2024Q2: How many drinks containing alcohol do you have on a typical day when you are drinking?3 or Q3: How often do you have six or more drinks on one occasion?Less than rvmonbr6903/03/2024Overall Financial Resource Strain (CARDIA) AnswerDate RecordedHow hard is it for you to pay for the very basics like food, housing, medical care, and heating?Patient olnlzykz34/26/2024HQ-2AnswerDate RecordedPatient Health Questionnaire-2 Omymw669Finmountainstar healthcare [place] of Occupational Health - Occupational Stress QuestionnaireAnswerDate RecordedDo you feel stress - tense, restless, nervous, or anxious, or unable to sleep at night because yourmind is troubled all the time - these days?To some geslds5002/02/2024 Exercise Vital SignAnswerDate RecordedOn average, how many days per week do you engage in moderate to strenuous exercise (like a brisk walk)?Patient declined 02/02/2024On average, how many minutes do you engage in exercise at this level? Patient ltmyeizr50/26/2024Hunger Vital SignAnswerDate RecordedWithin the past 12 months, you worried that your food would run out before you got the money to buy more.Patient pbekbodm90/26/2024Within the past 12 months, the food you [...] Plan of Treatment DateTypeDepartmentCare Team (Latest Contact Info)Ljmwgdlwfcf68/05/2026 9:50 AM ESTOffice Visit [facility] [address] [facility] 130 [place] [address] Layla Houston MD 112 [facility] 130 [place] [address] 07/30/2025 10:15 AM ESTOffice Visit [facility] [address] [address] Robbin José MD 703 [facility] 150 [place] [address] documented as of this encounter Procedures Procedure NamePriorityDate/TimeAssociated DiagnosisCommentsHEPATIC FUNCTION NUYQMVclwpqn43/15/2025 9:22 AM EST documented in this encounter Results * (ABNORMAL) Hepatic function panel (06/23/2025 9:22 AM EST)ComponentValueRef RangeTest MethodAnalysis TimePerformed AtPathologist SignatureTOTAL PROTEIN6.6 6.4 - 8.9 g/dL06/23/2025 10:06 AM [facility] CtrALBUMIN LEVEL3.3(L)3.5 - 5.7 g/dL06/23/2025 10:06 AM [facility] Ctr GLOBULIN3.3g/dL06/23/2025 10:06 AM [facility] Ctr ALBUMIN/GLOBULIN RATIO1.012 10:06 AM [facility] Ctr BILIRUBIN,TOTAL1.7(H)0.3 - 1.0 mg/dL06/23/2025 10:06 AM [facility] CtrComment: Samples from patients who have taken Naproxen have shown spurious elevation in Total Bilirubin levels. ??A metabolite of Naproxen, O-desmethylnaproxen, has been shown to interfere with the Jendrassik-Grof method for measuring Total Bilirubin. BILIRUBIN,DIRECT1.00(H)0.03 - 0.18 mg/dL06/23/2025 10:06 AM [facility] CtrBILIRUBIN,INDIRECT0.7mg/dL06/23/2025 10:06 AM [facility] CtrASPARTATE AMINO NUZAJFPWFOO902(H)13 - 39 U/L108/24/2024 10:06 AM [facility] CtrALANINE TPUCXUNUIGJTEGPW274(H)7 - 52 U/L 06/23/2025 10:06 AM [facility] CtrALKALINE DOIAKWMEHCZ266(H) 34 - 104 U/L108/24/2024 10:06 AM [facility] CtrSpecimen (Source)Anatomical Location / LateralityCollection Method / VolumeCollection TimeReceived TimeOtherTopography unknown / Qjlacgu9906/23/2025 9:22 AM EST 06/23/2025 9:37 AM EST Narrative Authorizing ProviderResult TypeResult StatusAlbert Arnav Cárdenas MDLAB BLOOD ORDERABLESFinal ResultPerforming OrganizationAddressCity/State/ZIP CodePhone Number [facility] [address] [place] [address], [facility] [address] [place] [address] documented in this encounter Visit Diagnoses Not on filedocumented in this encounter Additional Health Concerns AssessmentNoted TimePHQ-9 Depression Total Score: 402 10:00 AM EST documented as of this encounter Care Teams Team MemberRelationshipSpecialtyStart DateEnd Date Latrell Mckeon MD [address] [place] [address] [facility] Latrell Mckeon MD [address] [place] [address] PCP - [facility]08/16/24 Siomara Fitzgerald DO [address] [place] [address] Referring UpxawabinLcrdfccxh31/21/24documented as of this encounter
--- OUTSIDE RECORDS SUMMARY | 2025-07-07 07:30 | XMS_ITS | Encounter Summary ---
Author Organization [facility] Address [address] [place] [address] Care Team Providers Care Help Desk Associate Name Role Phone Latrell Mckeon MD Primary Care Provider [phone] Siomara Fitzgerald DO Unavailable [phone] Latrell Mckeon MD Unavailable Encounter Details DateTypeDepartmentCare Team (Latest Contact Info)Bdhtcgzpeev81/16/2025Travel Social History Tobacco UseTypesPacks/DayYears UsedDateSmoking Tobacco: FormerCigarettes1.270.7 07/10/1967 - 01/08/2012Smokeless Tobacco: NeverAlcohol UseStandard Drinks/Week CommentsYes4 (1 standard drink = 0.6 oz pure alcohol)Caffeine: 2-3 cups per day B1300 Health LiteracyAnswerDate RecordedHow often do you need to have someone help you when you read instructions, pamphlets, or other written material from your doctor or pharmacy?Xfcjeydsc15/26/2024Social Connection and Isolation Panel AnswerDate RecordedIn a typical week, how many times do you talk on the phone with family, friends, or neighbors?More than three times a week02/02/2024How often do you get together with friends or relatives?Three times a week02/02/2024 How often do you attend synagogue or judaism services?Patient cdpiiqkr46/26/2024 Do you belong to any clubs or organizations such as synagogue groups, unions, fraternal or athletic groups, or school groups?Patient ooemyvah93/26/2024How often do you attend meetings of the clubs or organizations you belong to?Patient nepwvlpw51/26/2024re you , , , , never , or living with a partner?Never yirocgw9202/02/2024UDIT-CAnswerDate RecordedQ1: How often do you have a drink containing alcohol?Monthly or less03/03/2024Q2: How many drinks containing alcohol do you have on a typical day when you are drinking?3 or Q3: How often do you have six or more drinks on one occasion?Less than gpokdtu2403/03/2024Overall Financial Resource Strain (CARDIA) AnswerDate RecordedHow hard is it for you to pay for the very basics like food, housing, medical care, and heating?Patient ldvmkjho33/26/2024HQ-2AnswerDate RecordedPatient Health Questionnaire-2 Bttxy433Find[facility] [place] of Occupational Health - Occupational Stress QuestionnaireAnswerDate RecordedDo you feel stress - tense, restless, nervous, or anxious, or unable to sleep at night because yourmind is troubled all the time - these days?To some pbwcaa1402/02/2024 Exercise Vital SignAnswerDate RecordedOn average, how many days per week do you engage in moderate to strenuous exercise (like a brisk walk)?Patient declined 02/02/2024On average, how many minutes do you engage in exercise at this level? Patient dlkolobm22/26/2024Hunger Vital SignAnswerDate RecordedWithin the past 12 months, you worried that your food would run out before you got the money to buy more.Patient izpwfrsb72/26/2024Within the past 12 months, the food you [...] homeless or living in a intermediate (including now)?No4CommentsUnknownSex and Gender InformationValueDate RecordedSex Assigned at BirthNot on fileLegal SexFemale 09/21/2022 7:08 PM EDTGender IdentityNot on fileSexual OrientationNot on file documented as of this encounter Plan of Treatment DateTypeDepartmentCare Team (Latest Contact Info)Kfirlvuijcg85/05/2026 9:50 AM ESTOffice Visit [facility] [address] [facility] 130 [place] [address] Layla Houston MD 112 [facility] 130 [place] [address] 07/30/2025 10:15 AM ESTOffice Visit [facility] 703 [facility] 150 [place] [address] Robbin José MD 703 [facility] 150 [place] [address] documented as of this encounter Visit Diagnoses Not on filedocumented in this encounter Additional Health Concerns AssessmentNoted TimePHQ-9 Depression Total Score: 10:00 AM EST documented as of this encounter Care Teams Team MemberRelationshipSpecialtyStart DateEnd Date Latrell Mckeon MD [address] [place] [address] PCP - GeneralFamily Medicine08/05/23 Latrell Mckeon MD [address] [place] [address] PCP - [facility]08/16/24 Siomara Fitzgerald DO [address] [place] [address] Referring CkikmbtuyWwbyymsfz24/21/24documented as of this encounter
--- OUTSIDE RECORDS SUMMARY | 2025-07-07 07:30 | XMS_ITS | Encounter Summary ---
Author Organization [facility] Address [address] [place] [address] Care Team Providers Care Rural Mail Contractor Name Role Phone Latrell Mckeon MD Primary Care Provider [phone] Siomara Fitzgerald DO Unavailable [phone] Latrell Mckeon MD Unavailable Encounter Details DateTypeDepartmentCare Team (Latest Contact Info)Qcnnhayukfi69/17/2025Travel Social History Tobacco UseTypesPacks/DayYears UsedDateSmoking Tobacco: FormerCigarettes1.270.7 07/10/1967 - 01/08/2012Smokeless Tobacco: NeverAlcohol UseStandard Drinks/Week CommentsYes4 (1 standard drink = 0.6 oz pure alcohol)Caffeine: 2-3 cups per day B1300 Health LiteracyAnswerDate RecordedHow often do you need to have someone help you when you read instructions, pamphlets, or other written material from your doctor or pharmacy?Qhpgiayxr11/26/2024Social Connection and Isolation Panel AnswerDate RecordedIn a typical week, how many times do you talk on the phone with family, friends, or neighbors?More than three times a week02/02/2024How often do you get together with friends or relatives?Three times a week02/02/2024 How often do you attend sikhism or yazdanism services?Patient gsrijeee25/26/2024 Do you belong to any clubs or organizations such as sikhism groups, unions, fraternal or athletic groups, or school groups?Patient ueczokvh79/26/2024How often do you attend meetings of the clubs or organizations you belong to?Patient lhjppyto51/26/2024re you , , , , never , or living with a partner?Never chairno3302/02/2024UDIT-CAnswerDate RecordedQ1: How often do you have a drink containing alcohol?Monthly or less03/03/2024Q2: How many drinks containing alcohol do you have on a typical day when you are drinking?3 or Q3: How often do you have six or more drinks on one occasion?Less than hmewhhg8203/03/2024Overall Financial Resource Strain (CARDIA) AnswerDate RecordedHow hard is it for you to pay for the very basics like food, housing, medical care, and heating?Patient /26/2024HQ-2AnswerDate RecordedPatient Health Questionnaire-2 Hhzbv878F[facility]alt [facility] [place] of Occupational Health - Occupational Stress QuestionnaireAnswerDate RecordedDo you feel stress - tense, restless, nervous, or anxious, or unable to sleep at night because yourmind is troubled all the time - these days?To some dsqcps1802/02/2024 Exercise Vital SignAnswerDate RecordedOn average, how many days per week do you engage in moderate to strenuous exercise (like a brisk walk)?Patient declined 02/02/2024On average, how many minutes do you engage in exercise at this level? Patient amdqwmnr28/26/2024Hunger Vital SignAnswerDate RecordedWithin the past 12 months, you worried that your food would run out before you got the money to buy more.Patient upzvcgzc99/26/2024Within the past 12 months, the food you [...] homeless or living in a detention (including now)?No4CommentsUnknownSex and Gender InformationValueDate RecordedSex Assigned at BirthNot on fileLegal SexFemale 09/21/2022 7:08 PM EDTGender IdentityNot on fileSexual OrientationNot on file documented as of this encounter Plan of Treatment DateTypeDepartmentCare Team (Latest Contact Info)Rlxdjvfcabv10/05/2026 9:50 AM ESTOffice Visit [facility] [address] [facility] 130 [place] [address] Layla Houston MD 112 [facility] 130 [place] [address] 07/30/2025 10:15 AM ESTOffice Visit [facility] 703 [facility] 150 [place] [address] Robbin José MD 703 [facility] 150 [place] [address] documented as of this encounter Visit Diagnoses Not on filedocumented in this encounter Additional Health Concerns AssessmentNoted TimePHQ-9 Depression Total Score: 10:00 AM EST documented as of this encounter Care Teams Team MemberRelationshipSpecialtyStart DateEnd Date Latrell Mckeon MD [address] [place] [address] PCP - GeneralFamily Medicine08/05/23 Latrell Mckeon MD [address] [place] [address] PCP - [facility]08/16/24 Siomara Fitzgerald DO [address] [place] [address] Referring CktiuirmbGqvycizlk51/21/24documented as of this encounter
--- OUTSIDE RECORDS SUMMARY | 2025-07-07 07:30 | XMS_ITS | CCD ---
Author Organization [facility] Care Team Providers Care Phone Specialist Name Role Phone FREDY, DR CHAPARRO Attending [...] Unavailable Yovanny OLIVO, Dafne Talal Unavailable [phone] Amilcar JOVEL Diomedes Unavailable Latrell Jack MD Primary Care Provider Yovanny OLIVO, Dafne T Unavailable [phone] Latrell Jack MD Unavailable Elmer Kohli Attending Unavailable Elmer Kohli Attending Unavailable Latrell Jack MD Primary Care Provider Julio OLIVO, Erik Admit Provider Julio OLIVO, Erik Attending Provider Tra Hobson MD Attending Provider Julio OLIVO, Erik Attending Provider [phone] Julio OLIVO, Erik Other Provider Diomedes Fitzgerald DO Attending Provider Dagoberto REGISTERED DIETETIC TECHNICIAN, Sugar Unavailable LATRELL JACK Attending Unavailable SANDRA ARCOS Attending Unavailable LATRELL JACK Attending Unavailable LATRELL JACK Attending Unavailable DIOMEDES FITZGERALD Attending Unavailable LATRELL JACK Referring Unavailable DIOMEDES FITZGERALD Referring Unavailable MAO MORROW Attending Unavailable LATRELL JACK Attending Unavailable SANDRA ARCOS Attending Unavailable Dagoberto REGISTERED DIETETIC TECHNICIAN, Sugar Unavailable Latrell Jack MD Primary Care Provider Julio OLIVO, Erik Attending Provider Latrell Jack MD Attending Provider Latrell Jack MD Primary Care Provider [phone] Erik Kim MD Attending Provider [phone] Elmer Shu DO Attending Provider XAVIER BOYD Referring Unava ilable NADERER, LATRELL [...] Unavailable Latrell Jack MD Primary Care Provider [phone] Diomedes Fitzgerald DO Unavailable Latrell Jack MD Unavailable Latrell Jack MD Primary Care Provider [phone] Sandra Arcos APRN Attending Provider Allergies Allergy ClassificationReported Allergen(s)Allergy TypeDate of OnsetReaction(s) Facility (1 source)Amino AcidsDrug AllergyThe [facility] Medications Current Medications MedicationDrug Class(es)DatesSig (Normalized)Sig (Original)acetaminophen 500 mg oral tablet (16 sources)Start: 36-97-2627skcl 1 tablet by mouth every six hours as needed for pain and painacetaminophen (Tylenol) 500 MG tablet Take 500 mg by mouth every 6 (six) hours if needed for mild pain or moderate pain Take 2 tabs every 6 hours as needed for pain. 07/26/2024 Activeacetaminophen 325 mg / HYDROcodone bitartrate 5 mg oral tablet (2 sources)Opioid AgonistStart: 12-04-2024 End: 04-88-4109otva 1 tablet by mouth four times daily as needed for pain HYDROcodone-acetaminophen ([place]) 5-325 MG tablet Indications: Degenerative lumbar spinal stenosis Take 1 tablet by mouth 4 (four) times a day as needed for severe pain for up to 5 days 20 tablet 12/04/2024 12/09/2024 Activealbuterol 0.83 mg/ml inhalation solution (20 sources)beta2-Adrenergic AgonistStart: 82-57-3638yqnuqimve 0.083% Inh [place] 3 mL Refill(s) 0, 150 mL, 0 Refill(s), INHALE 3 ML(2.5 MG) BY NEBULIZER EVERY 4 HOURS NEEDED FOR SHORTNESS OF BREATH OR WHEEZING Start Date: 02/23/24 Status: Ordered Repeatnumber: 1Start: 41-76-4093xked 2.5 mg by inhalation every four hours as neededAlbuterol Sulfate 2.5 mg /3 mL (0.083 %) solution for nebulization Active 2.5 MG INHALATION Every 4hours as needed April 09, 2025 12:00am Complies with drug therapyALBUTEROL INHALATION Inhale as instructed. ActiveamLODIPine 5 mg oral tablet (2 sources)Dihydropyridine Calcium Channel BlockerStart: 85-75-7574nayu 1 tablet by mouth once dailyAmlodipine (Norvasc) 5 mg tablet Active 5 MG PO Daily 30 5 April 29, 2025 12:00am Complies withdrug therapyaspirin 81 mg oral tablet (20 sources)Platelet Aggregation Inhibitor, Nonsteroidal Anti-inflammatory Drug Start: 45-50-1096mxmm 1 tablet by mouth once dailyAspirin 81 mg tablet Active 81 MG PO Daily February 03, 2025 12:00am Complies with drug therapyStart: 03-05-2021 aspirin 81 mg cap Take 81 mg by mouth. 03/05/2021 ActiveStart: 58-69-7272xxvj 1 tablet by mouth once dailyaspirin 81 mg Oral EC Tab 81 mg = 1 tab(s), Oral, Daily, Refills(s) 0, Prophylaxis Start Date: 03/05/21 Status: Ordered Repeat number: 1atorvastatin 40 mg oral tablet (20 sources)HMG-CoA Reductase InhibitorStart: 77-11-8022fgdv 1 tablet by mouth once dailyAtorvastatin 40 mg tablet Active 40 MG PO Daily December 12, 2024 12:00am Complies with drug therapyCalcium (4 sources)Phosphate Binder, CalciumStart: 71-69-0919fuye 1 tablet by mouth once dailyCalcium Calcium, 1 tab, Oral, Daily Start Date: 02/26/24 Status: Ordered Repeat number: 1Start: 38-30-7627alvb 1 tablet by mouth once dailyCalcium Calcium, 1 tab, Oral, Daily Start Date: 02/26/24 Status: OrderedStart: 02-26-2024 Calcium Calcium Start Date: 02/26/24 Status: Orderedcalcium carbonate 1500 mg oral tablet (20 sources)Start: 42-69-4960xmvt 1 tablet by mouth twice dailyCalcium Carbonate (Calcium 600) 600 mg calcium (1,500 mg) tablet Active 600 MG PO Twice daily April 09, 2025 12:00am Complies with drug therapycholecalciferol 0.025 mg oral tablet (20 sources)Vitamin DStart: 83-00-9811hvhi 1 tablet by mouth once daily Cholecalciferol [...] Activeeszopiclone 2 mg oral tablet (9 sources)Start: 06-77-5078tdlj 1 tablet by mouth once daily at bedtime Eszopiclone (Lunesta) 2 mg tablet Active 2 MG PO Daily at bedtime 30 30 2 February 03, 2025 12:00am Primary insomnia Primary insomnia Complies with drug therapy fluticasone propionate 0.05 mg/actuat metered dose nasal spray (20 sources)CorticosteroidStart: 33-15-5636Kdhofzllkxi Propionate 50 mcg/actuation spray,suspension Active 2 SPRAY INTRANASAL Daily December 12, 2024 12:00am Complies with drug therapyStart: 17-37-0057jglt 2 spray(s) nasal route once dailyfluticasone (Flonase) 50 MCG/ACT nasal spray Indications: Seasonal allergic rhinitis due to pollen USE 2 SPRAYS IN EACH NOSTRIL DAILY 48 mL 5 03/26/2024 ActiveStart: 13-46-2441oatulwnpduj (FLONASE) 50 mcg/actuation nasal spray 2 Sprays once daily. 09/06/2023 ActiveStart: 07-83-6066Zjbapfb 0.05 mg/inh [place] 2 spray(s), Nasal, Daily, Refill(s) 0, Dry nasal passages Start Date: 09/06 Status: Ordered Repeat number: 1Start: 06-21-2023 End: 09-01-7508scvt 2 spray(s) nasal route in the morningfluticasone (Flonase) 50 MCG/ACT nasal spray Administer 2 sprays into each nostril in the morning. 1 08/22/2022 03/26/2024 Discontinuedlosartan potassium 100 mg oral tablet (20 sources)Angiotensin 2 Receptor BlockerStart: 82-31-8405pcuo 1 tablet by mouth once dailyLosartan 100 mg tablet Active 100 MG PO Daily April 09, 2025 12:00am Complies with drug therapyStart: 33-44-2313qvvw 1 tablet by mouth once dailylosartan (Cozaar) 100 MG tablet Indications: Essential hypertension, benign Take 1 tablet (100 mg) by mouth Daily 30 tablet 5 02/24/2025 ActiveStart: 06-13-2024 End: 80-40-8019vuez 1 tablet by mouth twice dailyLosartan 50 mg tablet Discontinued 50 MG PO Twice daily February 03, 2025 12:00am April 09, 2025 1: 27pmStart: 02-09-2024 End: 68-03-3571oquc 1 tablet by mouth in the morninglosartan (Cozaar) 50 MG tablet Indications: Essential hypertension, benign (CMS/HCC) Take 1 tablet (50 mg) by mouth in the morning and 1 tablet (50 mg) before bedtime. 180 tablet 3 06/13/2024 ActiveStart: 00-31-5748acly 1 tablet by mouth once dailylosartan 25 mg Tab 25 mg = 1 tab(s), Oral, Daily, Refills(s) 0, High blood pressure Start Date: 09/06/23 Status: Ordered Repeat number: 1take 1 tablet by mouth once daily losartan (Cozaar) 25 MG tablet Take 1 tablet by mouth 1 (one) time each day at the same time 0 Activemethocarbamol 750 mg oral tablet (20 sources)Muscle RelaxantStart: 55-88-4810jkmu 1 tablet by mouth four times daily as needed for muscle spasmsMethocarbamol 750 mg tablet Active 750 MG PO Four times daily as needed for muscle spasms April 09, 2025 12:00am Complies with drug therapyStart: 13-89-1934fdtu 1 tablet by mouth four times daily as needed for muscle spasmsmethocarbamol (Robaxin) 750 MG tablet Indications: Degenerative lumbar spinal stenosis TAKE 1 TABLET BY MOUTH 4 TIMES A DAY NEEDED FOR MUSCLE SPASMS 60 tablet 2 03/03/2025 ActiveStart: 02-03-2025 End: 77-64-2133Kxagkxuvoilbu 500 mg tablet Discontinued 500 MG PO as needed February 03, 2025 12:00am April 09, 2025 1:31pmStart: 12-04-2024 End: 92-13-6628hfhd 1 tablet by mouth four times daily as needed for pain Methocarbamol 750 mg tablet Discontinued 750 MG PO Four times daily as needed for pain December 12, 2024 12:00am February 03, 2025 3:55pmStart: 12-01-2024 End: 41-50-5564ogjlimsbhyyrr (Robaxin) 500 MG tablet 12/01/2024 12/04/2024 Discontinued (Reorder)mirtazapine 15 mg oral tablet (16 sources)Start: 91-92-6272ozfq 1 tablet by mouth once daily at bedtime Mirtazapine 15 mg tablet Active 15 MG PO Daily at bedtime February 03, 2025 12:00am Complies with drug therapyStart: 12-16-2024 End: 22-26-4798sraf 1 tablet by mouth once daily at bedtimeMirtazapine 7.5 mg Tablet Discontinued 7.5 MG PO Daily at bedtime 30 30 0 December 16, 2024 12:00am February 03, 2025 3:55pmMultiple Vitamin (multivitamin) capsule (20 sources)take 1 capsule by mouth once dailyMultiple Vitamin (multivitamin) capsule Take 1 capsule by mouth Daily ActiveMultivitamin,Tx-Minerals (Multi- Vitamin Hp/Minerals) capsule (5 sources)Start: 38-57-1007ojvh 1 capsule by mouth once dailyMultivitamin,Tx- Minerals (Multi-Vitamin Hp/Minerals) capsule Active 1 CAP PO Daily April 09, 2025 12:00am Complies with drug therapyondansetron 4 mg oral tablet (1 source)Serotonin-3 Receptor AntagonistStart: 07-26-2024 End: 94-57-0919dueu 1 tablet by mouth every eight hours as neededondansetron (Zofran) 4 MG tablet Take 4 mg by mouth every 8 (eight) hours if needed 07/26/2024 08/02/2024 ActiveoxyCODONE hydrochloride 5 mg oral tablet (4 sources)Opioid AgonistStart: 07-26-2024 End: 19-69-9080jbqy 1 tablet by mouth every six hours as needed for pain and painoxyCODONE (Roxicodone) 5 MG immediate release tablet Take 5 mg by mouth every 6 (six) hours if needed for moderate pain or severe pain 07/26/2024 08/27/2024 DiscontinuedpredniSONE 50 mg oral tablet (4 sources)Start: 12-04-2024 End: 13-95-6978qtww 1 tablet by mouth once dailypredniSONE (Deltasone) 50 MG tablet Indications: Degenerative lumbar spinal stenosis Take 1 tablet (50 mg) by mouth Daily for 6 days 6 tablet 12/04/2024 12/10/2024 ActiveStart: 05-15-2024 End: 81-37-8157drjd 1 tablet by mouth once dailypredniSONE (Deltasone) 50 MG tablet Indications: Chronic obstructive pulmonary disease, unspecifiedCOPD type (CMS/HCC) Take 1 tablet (50 mg) by mouth Daily for 6 days 6 tablet 05/15/2024 05/21/2024 Activetiotropium 0.018 mg inhalation powder (20 sources)AnticholinergicStart: 07-92-1917bnwr 1 capsule by inhalation once dailyTiotropium [place] (Spiriva With Handihaler) 18 mcg capsule, w/inhalation device Active 1 CAP INHALATION Daily December 12, 2024 12:00am Complies with drug therapyStart: 92-52-7761dfhx 1 capsule by inhalation in the morningSpiriva HandiHaler 18 MCG inhalation capsule Indications: Chronic obstructive pulmonary disease, unspecified COPD type (HCC) PLACE 1 CAPSULE (18 MCG) INTO INHALER AND INHALE IN THE MORNING 30 lysnlvr54 10/29/2024 ActiveStart: 10-09-2023 End: 43-47-0032qjil 1 capsule by inhalation in the morningtiotropium (Spiriva HandiHaler) 18 MCG inhalation capsule Indications: Chronic obstructive pulmonary disease, unspecified COPD type (CMS/HCC) Place 1 capsule (18 mcg) into inhaler and inhale in the morning. 30 capsule 11 10/09/2023 10/29/2024 Discontinued Start: 36-21-7318fjsc 1 capsule by inhalation once dailySpiriva HandiHaler 18 mcg inhalation capsule 18 mcg = 1 cap(s), Inhalation, Daily, Refills(s) 0, Miguelina rtness of breath or wheezing Start Date: 09/06/23 Status: OrderedStart: 91-00-9112zune 1 capsule by inhalation in the morningSpiriva HandiHaler [address] 1 capsule into inhaler and inhale in the morning. 0 05/23/2023 Activetiotropium bromide (SPIRIVA RESPIMAT INHALATION) Inhale as instructed. ActiveTiotropium [place] (Spiriva With Handihaler) 18 mcg capsule, w/inhalation device (1 source)Start: 53-19-4314znvi 1 capsule by inhalation once dailyTiotropium [place] (Spiriva With Handihaler) 18 mcg capsule, w/inhalation device Active 1 CAP INHALATION Daily December 12, 2024 12:00amTirzepatide (Weight Loss) (2 sources)Start: 60-64-4751Gvhzxivayra (Weight Loss) (Zepbound) 2.5 mg/0.5 mL pen injector Active 2.5 MG SUBCUT every week 2 1Oct2024 12:00am for 4 weeks Complies with drug therapyVitamin D3 1000 intl units (25 mcg) Tab (5 sources)Start: 62-76-2668mnxd 1 tablet by mouth once dailyVitamin D3 1000 intl units (25 mcg) Tab 25 mcg = 1 tab(s), Oral, Daily, Refills(s) 0, Prophylaxis Start Date: 09/06/23 Status: Ordered Repeat number: 1Start: 38-63-3664erdi 1 tablet by mouth once dailyVitamin D3 1000 intl units (25 mcg) Tab 25 mcg = 1 tab(s), Oral, Daily, Refills(s) 0, Prophylaxis Start Date: 09/06/23 Status: OrderedVitamin E (20 sources)Start: 28-72-1071chxtnvn E Oral, Daily, Refills(s) 0, Prophylaxis Start Date: 02/26/24 Status: Ordered Repeat number:1Start: 08-72-8962bvnvtly E Oral, Daily, Refills(s) 0, Prophylaxis Start Date: 02/26/24 Status: OrderedStart: 61-00-4409rapqshw E Oral, Refills(s) 0 Start Date: 02/26/24 Status: Orderedtake 1 capsule by mouth once dailyalpha tocopherol (Vitamin E) 400 units capsule Take 1 capsule by mouth 1 (one) time each day at thesaut time ActiveVitamin E, dl, acetate, (VITAMIN E) 400 unit capsule Take 1 capsule by mouth. ActiveVitamin E Mixed 400 unit tablet (5 sources)Start: 67-65-5083gsby 1 tablet by mouth once dailyStart: 04-09-2025 take 1 tablet by mouth once dailyVitamin E Mixed 400 unit tablet Active 400 UNIT PO Daily April 09, 2025 12:00am Complies with drug therapyzonisamide 50 mg oral capsule (20 sources)Anti-epileptic AgentStart: 89-53-4472gsvm 1 capsule by mouth once dailyZonisamide 50 mg capsule Active 100 MG PO Daily April 09, 2025 1:36pm Complies with drug therapyStart: 12-12-2024 End: 32-71-9905bqad 1 capsule by mouth twice dailyZonisamide 50 mg capsule Discontinued 50 MG PO Twice daily December 12, 2024 12:00am April 0951:42pm Start: 99-78-8176sjxq 2 capsules by mouth once dailyzonisamide (Zonegran) 50 MG capsule Take 100 mg by mouth Daily 08/07/2024 Active Completed/Discontinued Medications MedicationDrug Class(es)DatesSig (Normalized)Sig (Original)baclofen 10 mg oral tablet (19 sources)gamma-Aminobutyric Acid-ergic Agonist End: 93-22-7958xgpu 5 mg by mouth in the morningbaclofen (Lioresal) 10 MG tablet Take 5 mg by mouth in the morning and 5 mg before bedtime. 02/24/2025 Discontinueddocusate sodium 100 mg oral capsule (20 sources)Start: 04-09-2025 End: 27-53-9050guxk 1 capsule by mouth twice daily as neededDocusate Sodium 100 mg capsule Discontinued 100 MG PO Twice daily as needed April 09, 2025 12:00a m April 10, 2025 11:47amStart: 89-38-7261Uhtsyyuo Sodium (DSS) 100 MG capsule Take 100 mg by mouth every 12 (twelve) hours if needed 07/26/2024 ActiveStart: 58-02-9286bsln 1 capsule by mouth every twelve hours as neededdocusate sodium (COLACE) 100 mg capsule Take 1 capsule by mouth two times a day as needed for constipation. 07/26/2024 Activedonepezil hydrochloride 10 mg oral tablet (20 sources)Start: 05-30-2024 End: 44-46-8939ddxl 1 tablet by mouth at bedtimeDonepezil 10 mg tablet Discontinued 10 MG PO Bedtime December 12, 2024 12:00am April 23, 2025 9:36am Start: 02-23-2024 End: 15-42-2613aaajccvde 5 mg Tab 30 EA, 0 Refill(s), TAKE 1 TABLET BY MOUTH AT BEDTIME, Refills(s) 0 Start Date: 02/23/24 Status: Ordered Repeat number: 1 famotidine 40 mg oral tablet (20 sources)Histamine-2 Receptor AntagonistStart: 02-03-2025 End: 78-59-2866lgyu 1 tablet by mouth once dailyFamotidine 40 mg tablet Discontinued 40 MG PO Daily February 03, 2025 12:00am April 09, 2025 1:42pm Start: 87-84-1729awzb 1 tablet by mouth twice dailyFamotidine 40 mg tablet Active 40 MG PO Twice daily April 09, 2025 1:27pm Complies with drug therapy Start: 76-86-3917lufd 1 tablet by mouth once daily at bedtimefamotidine 40 mg Tab 40 mg = 1 tab(s), Oral, Once a day (at bedtime), Refills(s) 0, Control of stomach acid Start Date: 03/03/21 Status: Ordered Repeat number: 1One A Day Women's Complete (5 sources)Start: 07-73-7451Lcl A Day Women's Complete Oral, Daily, Refill(s) 0, Prophylaxis Start Date: 03/03/21 Status: Ordered Repeat number: 1Start: 17-38-2551Rcc A Day Women's Complete Oral, Daily, Refill(s) 0, Prophylaxis Start Date: 03/03/21 Status: Orderedpantoprazole 40 mg delayed release oral tablet (20 sources)Proton Pump InhibitorStart: 03-03-2021 End: 40-79-2019yxja 1 tablet by mouth once dailyPantoprazole 40 mg tablet,delayed release (DR/EC) Discontinued 40 MG PO Daily February 03, 2025 12:00am April 29, 2025 1:22pmzolpidem tartrate 10 mg oral tablet (20 sources)gamma-Aminobutyric Acid-ergic AgonistStart: 07-31-2024 End: 49-21-1861prvk 1 tablet by mouth at bedtime as needed for sleepZolpidem 10 mg tablet Discontinued 10 MG PO Bedtime as needed for sleep December 12, 2024 12:00am April 10, 2025 11:48amStart: 03-03-2021 End: 83-97-2766qlto 1 tablet by mouth once daily at bedtime as needed for sleep zolpidem 12.5 mg oral ER Tab 12.5 mg = 1 tab(s), Oral, Once a day (at bedtime), PRN for sleep, Refills(s) 0 Start Date: 03/03/21 Status: Ordered Repeat number: 1 Problems Active Problems Problem ClassificationProblemDateDocumented DateEpisodic/ChronicAcute cerebrovascular disease (20 sources)Cerebrovascular accident; Translations: [Cerebral infarction, unspecified]Onset: 910300-10-3800XrxwgnjRkzxwhm disorders (16 sources)Generalized anxiety disorder; Translations: [Generalized anxiety disorder]63-68-4329BcymgddDdctcbq obstructive pulmonary disease and bronchiectasis (20 sources)Chronic obstructive pulmonary disease, unspecified; Translations: [Chronic obstructive pulmonary disease with (acute) exacerbation]Onset: 479333-91-2064CawbbnhLilbhice, dementia, and amnestic and other cognitive disorders (20 sources)Senile dementia; Translations: [Unspecified dementia without behavioral disturbance]Onset: 291057-19-1048BvjogljMirleqkr mellitus without complication (20 sources)Prediabetes; Translations: [Prediabetes]Onset: EpisodicDisorders of lipid metabolism (20 sources)Hyperlipidemia, unspecified; Translations: [Dyslipidemia]Onset: 835550-06-6731WospltqVzyysthjfj disorders (18 sources)Gastroesophageal reflux disease; Translations: [Gastroesophageal reflux disease without esophagitis]Onset: 714268-89-0791QzmjympCgumpwgsb hypertension (20 sources)Essential (primary) hypertension; Translations: [Benign essential hypertension]Onset: 09-16-2021 Resolved: 736147-22-1374IjzlpcoGlgii and electrolyte disorders (1 source)Disorder of electrolytes; Translations: [Other disorders of electrolyte and fluid balance, not elsewhere classified]Onset: 07-26-2024 42-54-9659QglinkviWoyahirgybyoe mental health disorders (20 sources)Psychophysiologic insomnia; Translations: [Primary insomnia]Onset: 094713-93-1368MpbijjcLfsk disorders (19 sources)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 features; Translations: [Major depressive disorder, recurrent severe without psychotic features]Onset: 208480-04-2567OtntntlDcmajfpecfboao (20 sources)Primary gonarthrosis, bilateral; Translations: [Bilateral primary osteoarthritis of knee]Onset: 391539-93-6250JblpeknVfckn aftercare (1 source)Postoperative visit; Translations: [Encounter for other specified surgical aftercare]21-20-6470SzggvvckShphg bone disease and musculoskeletal deformities (20 sources)Osteopenia; Translations: [Other specified disorders of bone density and structure, other site]Onset: 788472-68-4963WycbzmrwRqwmy ear and sense organ disorders (10 sources)Tinnitus; Translations: [Tinnitus, unspecified ear]04-10-2025 EpisodicOther gastrointestinal disorders (20 sources)Dysphagia; Translations: [Dysphagia, unspecified]Onset: 02-09-2024 EpisodicOther hereditary and degenerative nervous system conditions (2 sources)Impaired cognition; Translations: [Mild cognitive impairment, so stated]53-55-3405OedmminFezbs lower respiratory disease (2 sources)Dyspnea on exertion; Translations: [Other forms of dyspnea]07-23-2024 EpisodicOther nervous system disorders (6 sources)Chronic pain; Translations: [Other chronic pain]10-80-3207Myrwexw Other nervous system disorders (1 source)Other chronic pain; Translations: [Chronic back pain, unspecified back location, unspecified back pain laterality]Onset: 02-71-4619LarhcthQwwfu nervous system disorders (4 sources)Word finding difficulty ; Translations: [Other speech disturbances] 83-29-7999HyzjdswfLsfns nervous system disorders (1 source)Acute postoperative pain; Translations: [Other acute postprocedural pain]Onset: 372575-35-6338TafhxdmgYahsy nervous system disorders (10 sources)Pseudodementia; Translations: [Other symptoms and signs involving cognitive functions and awareness]23-44-5382IhzorjglRdqjn non-traumatic joint disorders (5 sources)Disorder of shoulder; Translations: [Other specified joint disorders, left shoulder]35-92-9688CttmlqptDfuxa nutritional; endocrine; and metabolic disorders (1 source)Obesity, unspecified; Translations: [OBESITY UNSPECIFIED]Onset: 15-22-9085WkhdlolDbnjh nutritional; endocrine; and metabolic disorders (1 source)Morbid (severe) obesity due to excess calories; Translations: [MORBID SEVERE OBES D/T EXCESS JULIO C]Onset: 35-19-1357OwvlnowGjrxa nutritional; endocrine; and metabolic disorders (1 source)Body mass index (BMI) 38.0-38.9, adult; Translations: [BODY MASS INDEX BMI 38.0-38.9 ADULT]Onset: 57-99-9668GnloxhpMlanm nutritional; endocrine; and metabolic disorders (2 sources)Body mass index 40+ - severely obese; Translations: [Body mass index (BMI) 40.0-44.9, adult]59-38-4616JicladbHoluo nutritional; endocrine; and metabolic disorders (8 sources)Body mass index 30+ - obesity; Translations: [Body mass index (BMI) 39.0-39.9, adult]Onset: 07-23-2024 Resolved: 800478-75-6297IpcgzfvLcxku nutritional; endocrine; and metabolic disorders (20 sources)Severe obesity; Translations: [Class 2 severe obesity due to excess calories with serious comorbidity and body mass index (BMI) of 38.0 to 38.9 in adult ([facility])]Onset: 03-03-2024 Resolved: 355974-78-3898MvqypzeKmkdt nutritional; endocrine; and metabolic disorders (3 sources)Obesity; Translations: [Obesity, unspecified]Onset: 07-23-2024 59-63-4014NwqijtlFefwo nutritional; endocrine; and metabolic disorders (1 source)Obese class II; Translations: [Obesity, Class II, BMI 35-39.9]Onset: 345308-29-9338MvjmqdkPewzh upper respiratory disease (20 sources)Allergic rhinitis due to pollen; Translations: [Allergic rhinitis due to pollen]Onset: 926019-49-7916VqlvmidTuxhr upper respiratory disease (5 sources)Seasonal allergic dcozxvvp87-55-8004PzqzzybJordem media and related conditions (10 sources)Dysfunction of left eustachian tube; Translations: [Unspecified Eustachian tube disorder, left ear]11-31-9948KviqwldlRdlgtjqw codes; unclassified (2 sources)Obstructive sleep apnea (adult) (pediatric); Translations: [OBSTRUCTIVE SLEEP APNEA]Onset: 13-35-4380OjtcaktYoxydgfm codes; unclassified (20 sources)Obstructive sleep apnea syndrome; Translations: [Obstructive sleep apnea (adult) (pediatric)]Onset: 752907-75-0602QimflmxWiktsipd codes; unclassified (10 sources)Sleep apnea; Translations: [Sleep apnea, unspecified]03-03-2021 ChronicResidual codes; unclassified (6 sources)Insomnia; Translations: [Other insomnia]09-25-1661WtfsqjsAlwlndda codes; unclassified (20 sources)Edema of lower extremity; Translations: [Localized edema]Onset: 747531-22-1722YfgeyobqLaytkmsh codes; unclassified (5 sources)Vncgghax23-15-6445MmrdgnymIdzaxmov codes; unclassified (20 sources)Amnesia; Translations: [Other amnesia]Onset: EpisodicResidual codes; unclassified (1 source)History of hernia repair; Translations: [Other specified postprocedural states]Onset: 085164-13-9722XnkkarfiDsxuqlksr and history of mental health and substance abuse codes (20 sources)Personal history of nicotine dependence; Translations: [Ex-smoker] Onset: 01-81-4540ZzwvznjvXclsyamcvcp; intervertebral disc disorders; other back problems (20 sources)Lumbago with sciatica, left side; Translations: [Chronic back pain ] Onset: 836739-07-5986JjatkjqaIrkizoo and intentional self-inflicted injury (1 source)Suicidal thoughts; Translations: [Suicidal ideations]Onset: 12-12-2024 EpisodicTransient cerebral ischemia (20 sources)Transient cerebral ischemia; Translations: [Transient cerebral ischemic attack, unspecified]Onset: 704247-62-8165GdczubvZqzrpkznbidx (2 sources)COUGH, UNSPECIFIED; Translations: [COUGH, UNSPECIFIED]Onset: 27-26-0773Reesivdoidjw (1 source)CONTACT W/AND (SUSP) EXPOS COVID-19; Translations: [CONTACT W/AND (SUSP) EXPOS COVID-19]Onset: 17-73-4586Rdcxmhixqbmg (5 sources)Patient encounter gzylaw74-66-6639Zgafwvutwjdp (2 sources)Call if you have any medical concerns.Unclassified (1 source)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, if you [...] reflux disease with hiatal hernia]Onset: 09-16-2021 Resolved: 421587-11-6647MkqyfpmtGqmvyffbmewe of device; implant or graft (2 sources)Pain due to internal orthopedic prosthetic devices, implants and grafts, initial encounter; Translations: [Other specified complication of internal orthopedic prosthetic devices, implants and grafts,initial encounter] Onset: 21-57-5641FroklticOblvtebw of lower limb (5 sources)Other fracture of upper and lower end of right fibula, subsequent encounter for closed fracture with routine healing; Translations: [Torus fracture of lower end of right fibula, subsequent encounter for fracture with routine healing]Onset: 04-63-5530WojobnybBrxebbkwuywdw symptoms and ill-defined conditions (4 sources)Personal history of urinary (tract) infections; Translations: [History of urinary tract infection]Onset: 040158-09-0394Wmtbpilt Immunizations and screening for infectious disease (3 sources)Contact with or exposure to other viral diseases; Translations: [Contact with and (suspected) exposure to covid-19]Onset: 998787-27-4145 EpisodicMood disorders (13 sources)Mood disordersOnset: Other aftercare (1 source)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; Translations: [OTH INTERMEDIATE CURRENT DRUG THERAPY]Onset: 91-26-5927GbutcbueNjvwm aftercare (1 source)retirement (current) use of aspirin; Translations: [SPORTS RECRUITER CURRENT USE OF ASPIRIN]Onset: 93-32-0405KxnnsawsFplwd aftercare (8 sources)Patient encounter status; Translations: [Other mcfp (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 therapy]Onset: 391607-70-7449JgndqkpzCwtas aftercare (20 sources)Long-term current use of drug therapy; Translations: [Other mcfp (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 therapy]Onset: 767257-15-0733InvomtmaDgkrj aftercare (1 source)Encounter for other specified surgical aftercare; Translations: [Postoperative visit]Onset: 33-85-2593KikikaxjRakhx bone disease and musculoskeletal deformities (1 source)Other specified disorders of bone density and structure, other site; Translations: [OTH D/O BONE DEN STRUCT OTH SITE]Onset: 30-27-8626TxyihxlnCpsvv bone disease and musculoskeletal deformities (3 sources)Disorder of bone; Translations: [Other specified disorders of bone density and structure, other site]Onset: 418112-76-8035BrxuvrwnCrjub circulatory disease (1 source)Personal history of transient ischemic attack (TIA), and cerebral infarction without residual deficits; Translations: [PERS HX TIA AND CI NO RESID DEFICIT]Onset: 26-08-2096RhubapfdGxxip lower respiratory disease (3 sources)Dyspnea, unspecified; Translations: [DYSPNEA UNSPECIFIED]Onset: 68-13-6256XzfnuuraDndax lower respiratory disease (1 source)Shortness of breath; Translations: [SHORTNESS OF BREATH]Onset: 42-28-6094EfcbplbdIjgdj lower respiratory disease (3 sources)Cough; Translations: [Cough, unspecified]Onset: EpisodicOther lower respiratory disease (6 sources)Dyspnea; Translations: [Dyspnea, unspecified]Onset: 11-02-2021 85-13-0428ZhrooutlAqeev lower respiratory disease (1 source)Other forms of dyspnea; Translations: [CHENEY (dyspnea on exertion)] Onset: 91-92-8953GaxzpryrDzcvp nervous system disorders (1 source)Other acute postprocedural pain; Translations: [Acute postoperative pain]Onset: 64-99-2250PzvsjkjvGsprb non-traumatic joint disorders (1 source)Pain in right ankle and joints of right foot; Translations: [PAIN IN RIGHT ANKLE]Onset: 33-83-8059XqylntwxIyatl non-traumatic joint disorders (3 sources)Arthralgia of the ankle and/or foot; Translations: [Pain in right ankle and joints of right foot]Onset: 842977-28-2545TfagzgdgHwntz nutritional; endocrine; and metabolic disorders (20 sources)Morbid obesity; Translations: [Morbid (severe) obesity due to excess calories]Onset: 08-11-2023 Resolved: 653030-05-7880TxsazvyYpmpf nutritional; endocrine; and metabolic disorders (12 sources)Obesity caused by energy imbalance; Translations: [Other obesity due to excess calories]Onset: 09-16-2021 Resolved: 071996-07-8239BqadtcxAojww screening for suspected conditions (not mental disorders or infectious disease) (20 sources)Encounter for screening mammogram for malignant neoplasm of breast; Translations: [Patient encounter status]Onset: 61-53-4343KkketolrDppbzbvq codes; unclassified (20 sources)Hypersomnia; Translations: [Hypersomnia, unspecified]Onset: 03-03-2024 Resolved: 176845-40-3624WigsiplRocwjgjk codes; unclassified (1 source)Family history of malignant neoplasm of trachea, bronchus and lung; Translations: [FAM HX MALIG NEOPLSM TRACH BRON LNG]Onset: 44-16-4822Mfufouqq Residual codes; unclassified (1 source)Asymptomatic menopausal state; Translations: [ASYMPTOMATIC MENOPAUSAL STATE]Onset: 99-33-8198RcxujifhGkrzqmal codes; unclassified (3 sources)Menopause present; Translations: [Asymptomatic menopausal state] Onset: 540158-20-1760SbwuyctjUwnawboc codes; unclassified (1 source)Other amnesia; Translations: [Memory loss]Onset: 72-31-4005Omrjmznx Unclassified (1 source)COUGH, UNSPECIFIED; Translations: [COUGH, UNSPECIFIED]Onset: 02-22-2022 Results Test NameValueInterpretationReference RangeFacilityCNOVon 13-26-6550RWSZMswedg Visit (GENSMN) SHEY OBRIEN ([id number]) 1950 F Date Time Provider Department 04/23/25 [...] Katarzyna Snyder APRN.CNP 04/23/2025 12:10 PM Signed [facility] Clinic Date: [...] hernia recurrence; discussed potentia (more content not included)...NormalSelect Medical [facility] [place] LUNG SCREENING LOW DOSEon 04-27[place] [address] [place] Scan Report Signed Patient: SHEY OBRIEN MR#: [id number] : 1950 Acct:[id number] Age/Sex: 74 / F ADM Date: 03/04/25 Loc: CT Attending Dr: Latrell Jack M.D. Ordering Physician: Latrell Jack M.D. Date of Service: 03/04/25 Procedure(s): CT lung screening low-dose Accession Number(s): [id number] cc: Latrell Jack M.D. [place] [id number] Patient Name: SHEY OBRIEN MRN: [id number] date: 1950 Sex: F Assigned Patient Location: CT Current Patient Location: CT Accession/Order Number: [id number] Exam Date: 03/04/2025 13:52 Report Date: 03/04/2025 [...] Jr., D.O. 03/04/2025 2:31 PM Dictation Location: [place] [address] Electronically authenticated by: [id number] Y Date: 03/04/2025 14:31 Dictated By: Claude Bahena M.D. Signed By: 03/04/25 1433 DD/ 1431 TD/TT: Structural Mill Supervisor:TBHRadiology, Radiologist, - 03/04/2025 [place] [address] CT Scan Report Signed Patient: SHEY OBRIEN MR#: [id number] : 1950 Acct:[id number] Age/Sex: 74 / F ADM Date: 03/04/25 Loc: CT Attending Dr: Latrell Jack M.D. Ordering Physician: Latrell Jack M.D. Date of Service: 03/04/25 Procedure(s): CT lung screening low-dose Accession Number(s): [id number] cc: Latrell Jack M.D. The [address] [address] Patient Name: SHEY OBRIEN MRN: [facility]:[id number] date: 1950 Sex: F Assigned Patient Location: CT Current Patient Location: CT Accession/Order Number: [id number] Exam Date: 03/04/2025 13:52 Report Date: 03/04/2025 [...] Jr., D.O. 03/04/2025 2:31 PM Dictation Location: [place] [address] Electronically authenticated by: [id number] Y Date: 03/04/2025 14:31 Dictated By: Claude Bahena M.D. Signed By: 03/04/25 1433 DD/ 1431 TD/TT: Structural Mill Supervisor: NOM[facility] HealthcareRadiology Study observation (narrative)NOMS HealthcareCT LUNG SCREENING LOW DOSEOrdered By: Radiologist Radiology on 32-92-7739[facility] Work Phone: mm TOMOSYNTHESIS SCREENING BIon 87-28[place]29[place] [address] Mammography Report Signed Patient: SHEY OBRIEN MR#: [id number] : 1950 Acct:[id number] Age/Sex: 74 / F ADM Date: 02/27/25 Loc: MAMMO Attending Dr: Latrell Jack M.D. Ordering Physician: Latrell Jack M.D. Results: Date of Service: 02/27/25 Follow Up: Procedure(s): MM tomosynthesis screening BI Accession Number(s): [id number] cc: Latrell Jack M.D. Patient Name: SHEY OBRIEN MR#: [id number] : 1950 Exam Date: 02/27/2025 Ordering Doctor: [...] cancer at age 46. LOCATION: [facility] BREAST COMPOSITION: The breasts [...] Signed By: 02/27/25 1407 DD/ 140 TD/TT: Structural Mill Supervisor:TBHRadiology, RadiologistMD - 02/27/2025 [place] [address] Mammography Report Signed Patient: SHEY OBRIEN MR#: [id number] : 1950 Acct:[id number] Age/Sex: 74 / F ADM Date: 02/27/25 Loc: MAMMO Attending Dr: Latrell Jack M.D. Ordering Physician: Latrell Jack M.D. Results: Date of Service: 02/27/25 Follow Up: Procedure(s): MM tomosynthesis screening BI Accession Number(s): [id number] cc: Latrell Jack M.D. Patient Name: SHEY OBRIEN MR#: [id number] : 1950 Exam Date: 02/27/2025 Ordering Doctor: [...] cancer at age 46. LOCATION: [facility] BREAST COMPOSITION: The breasts [...] Signed By: 02/27/25 1407 DD/ 06 TD/TT: Structural Mill Supervisor: MARIANNE HealthcareRadiology Study observation (narrative)[facility] TOMOSYNTHESIS SCREENING BIOrdered By: Radiologist Radiology on 99-21-1775WCGXCedar [facility] Memorial Hospital Work Phone: c Urineon 06-92-6033Rcofqmqi identified Cx Nom (U) Microbiology PROCEDURE: Urine [...] Locations R1: This test was performed at: [facility], [address] [place] [address], [address]- , , GrwbwzEkudniTrinity Health System Twin City Medical CenterComment on above:Performed By: #### [id number] #### [facility] [address] [place] [address] 239[address]Nbqegvatktl [Mass/volume] in Serum or PlasmaOrdered By: Erik Kim on 55-10-1172Phclivjjkie [Mass/Vol]Cholesterol [Mass/volume] in Serum or Eyzlsb963-953BjsutvksxOhio State Harding HospitalComment on above:Chol less than 200 mg/dl low riskChol 201-239 mg/dl borderline riskChol 240 mg/dl and greater high riskCholesterol [Mass/Vol]149 mg/bXKdszfn247-163 [facility] HospitalComment on above:Chol less than 200 mg/dl low riskChol 201-239 mg/dl borderline riskChol 240 mg/dl and greater high riskResult Comment: Chol less than 200 mg/dl low risk Chol 201-239 mg/dl borderline risk Chol 240 mg/dl and greater high riskPerformed By: #### TSH3 wRFLX, LIPID, [id number] #### [facility] [address] [place] [address] USACholesterol in HDL [Mass/volume] in Serum or PlasmaOrdered By: Erik Kim on 53-58-9577Ilkdzjlxvvl in HDL [Mass/Vol]Serum or plasma high density lipoprotein (HDL) cholesterol zpasaeuwons71-91Zakzjjwvf91 Robinson StreetComment on above:HDL CHOL ATP-III CLASSIFICATION Cardiovascular RiskHDL > or equal to 60 mg/dL LOWHDL < 40 mg/dL HIGHCholesterol in HDL [Mass/Vol]42 mg/sZYilcgj11-98HibpwuisjOhio State Harding HospitalComment on above:HDL CHOL ATP-III CLASSIFICATION Cardiovascular RiskHDL > or equal to 60 mg/dL LOWHDL < 40 mg/dL HIGHResult Comment: HDL CHOL ATP-III CLASSIFICATION Cardiovascular Risk HDL > or equal to 60 mg/dL LOW HDL < 40 mg/dL HIGHPerformed By: #### TSH3 wRFLX, LIPID, [id number] #### [facility] [address] [place] [address] USACholesterol in LDL Calc [Mass/Vol]Ordered By: Erik Kmi on 76-74-7846Hpfigpzxcwi in LDL [Mass/Vol]Cholesterol in LDL [Mass/volume] in Serum or Plasma by calculation0Ohio State Harding HospitalComment on above:LDL ATP III CLASSIFICATIONLDL less than 100 mg/dL OptimalLDL 100-129 mg/dL Near or above ndptvkrIXX564-782 mg/dL Borderline highLDL 160-189 mg/dL HighLDL greater than 189 mg/dL Very highCholesterol in LDL [Mass/Vol]39 mg/dL0Ohio [facility] Harding HospitalComment on above:LDL ATP III CLASSIFICATIONLDL less than 100 mg/dL OptimalLDL 100-129 mg/dL Near or above ohfmvjyQTP984-687 mg/dL Borderline highLDL 160-189 mg/dL HighLDL greater than 189 mg/dL Very highCholesterol in VLDL Calc [Mass/Vol]Ordered By: Erik Kim on 09-39-7797Ungxsmpeooj in VLDL [Mass/Vol]Cholesterol in VLDL [Mass/volume] in Serum or Plasma by calculationOhio State Harding HospitalCholesterol in VLDL [Mass/Vol]67 mg/dLOhio State Harding Hospital Lipid Panelon 89-14-1717TVR Cholesterol,Xnxfulekhm78 mg/dLNormal0-100The [facility] Physician GroupComment on above:Result Comment: LDL ATP III CLASSIFICATION LDL less than 100 mg/dL Optimal LDL 100-129 mg/dL Near or above optimal LDL 130-159 mg/dL Borderline high LDL 160-189 mg/dL High LDL greater than 189 mg/dL Very highPerformed By: #### TSH3 wRFLX, LIPID, [id number] #### [facility] [address] [place] [address] USATriglyceride w/Qytaam569 mg/dLHigh0-149The [facility] Physician GroupComment on above:Result Comment: TRIG ATP III CLASSIFICATION TRIG less than 150 mg/dL Normal TRIG 150-199 mg/dL Borderline high TRIG 200-500 mg/dL High TRIG greater than 500 mg/dL Very high Standard traceable to the Center for Disease Conrtrol and Prevention (CDC) test method.Performed By: #### TSH3 wRFLX, LIPID, [id number] #### [facility] [address] [place] [address] USAVLDL BOIPXXTHYVC97 mg/dLNormJackson South Medical Center Physician GroupComment on above:Performed By: #### TSH3 wRFLX, LIPID, [id number] #### [facility] [address] [place] [address] USASerum or plasma total cholesterol/high density lipoprotein (HDL) cholesterol mass ratOrdered By: Erik Kim on 12-13-2024 Cholesterol.total/Cholesterol in HDL [Mass ratio]Serum or plasma total cholesterol/high density lipoprotein (HDL) cholesterol mass rat<5.0Ohio [facility] Harding HospitalCholesterol.total/Cholesterol in HDL [Mass ratio]3.5 {ratio}Normal<5.0[facility] Harding HospitalComment on above:Performed By: #### TSH3 wRFLX, LIPID, [id number] #### [facility] [address] [place] [id number] USAThyroid Stim Hormone w/Rflxon 02-52-9054Fcxsiwr Stim Hormone w/Rflx1.95 u[iU]/mLNormal0.45-5.33The [facility] Physician GroupComment on above:Performed By: #### TSH3 wRFLX, LIPID, [id number] #### [facility] [address] [place] [id number] USAThyrotropin [Units/volume] in Serum or PlasmaOrdered By: Erik Kim on 81-44-5628TPU QnThyrotropin [Units/volume] in Serum or Plasma0.45-5.33Ohio State Harding HospitalTSH Qn1.95 m[IU]/L0.45-5.33 [facility] HospitalTriglyceride [Mass/volume] in Serum or Plasma Ordered By: Erik Kim on 52-27-3730Nlpkeisqlpfl [Mass/Vol] Triglyceride [Mass/volume] in Serum or PlasmaHigh0-149[facility] Harding HospitalComment on above:TRIG ATP III CLASSIFICATIONTRIG less than 150 mg/dL NormalTRIG 150-199 mg/dL Borderline highTRIG 200-500 mg/dL High TRIG greater than 500 mg/dL Very highStandard traceable to the Center for Disease Conrtrol and Prevention (CDC) test method.Triglyceride [Mass/Vol]338 mg/dLHigh0-149 [facility] HospitalComment on above:TRIG ATP III CLASSIFICATIONTRIG less than 150 mg/dL NormalTRIG 150-199 mg/dL Borderline highTRIG 200-500 mg/dL High TRIG greater than 500 mg/dL Very highStandard traceable to the Center for Disease Conrtrol and Prevention (CDC) test method. Vitamin D 25 Hydroxy Totalon 06-95-8752Njaxcwg D 25 Hydroxy Total26.8 ng/mLLow 30-100The [facility] Physician GroupComment on above:Result Comment: VITAMIN D STATUS 25(OH)VITAMIN D RANGE (ng/mL) Deficient <20 Insufficient 20 to <30 Sufficient 30 to 100 Reference: Abdi MF,Shannon NC, Danyel HICKS, et al. Evaluation,treatment, and prevention of vitamin D deficiency; an Endocrine Society clinical practice guideline. JCEM. 2010; 96(7):1911-30. PERFORMED BY: [place] [address] PATHOLOGIST CHEMISTS AVRIL LEDESMA M.D.Performed By: #### TSH3 wRFLX, LIPID, [id number] #### [facility] [address] [place] [id number] [facility] HOSPITALVitamin D+Metabolites [Mass/volume] in Serum or Plasma Ordered By: Erik Kim on 27-04-3369Cvtotzv D+Metabolites [Mass/Vol] Vitamin D+Metabolites [Mass/volume] in Serum or HckldrGcw69-961VpaxouxflOhio State Harding HospitalComment on above:VITAMIN D STATUS 25(OH)VITAMIN D RANGE (ng/mL) Deficient <20 Insufficient 20 to <47Xijxgieqsh95 to 100Reference: Shannon Remy, Danyel HICKS, et al. Evaluation,treatment, and prevention of vitamin D deficiency; an Endocrine Society clinical practice guideline. [facility]. 2010; 96(7):1910-.Vitamin D+Metabolites [Mass/Vol]26.8 ng/mLLow 30-100[facility] Hard[facility] HospitalComment on above:VITAMIN D STATUS 25(OH)VITAMIN D RANGE (ng/mL) Deficient <20 Insufficient 20 to <86Sutixiylgb93 to 100Reference: Shannon Remy, Danyel HICKS, et al. Evaluation,treatment, and prevention of vitamin D deficiency; an Endocrine Society clinical practice guideline. [facility]. 2010; 96(7):1910-.CBC w/ Auto Diffon 24-94-9290Brdnmeiu Absolute0.0 E9/LNormal0.0-0.2FOhioHealth Riverside Methodist HospitalComment on above:Performed By: #### [id number] #### [facility] [address] [place], [place] [address]Afduthpnt/100 WBC (Bld)0.3 %Normal0.0-2.0[facility] HospitalComment on above:Performed By: #### [id number] #### [facility] [address] [place], [place] [address]Man Absolute0.2 E9/LNormal0.0-0.5FOhioHealth Riverside Methodist Hospital Comment on above:Performed By: #### [id number] #### [facility] [address] [place], [place] [address]Qcfsbydegye/100 WBC (Bld)2.8 %Normal0.0-8.0[facility] HospitalComment on above:Performed By: #### [id number] #### [facility] [address] [place], [place] [address]Oubjgmkixbb distribution width (RBC) [Ratio]14.7 %High10.9-14.2 [facility] HospitalComment on above:Performed By: #### [id number] #### [facility] [address] [place], [place] [address]Fxuafujmeb (Bld) [Volume fraction]40.9 %Rlvgkt53.0-46.0[facility] HospitalComment on above:Performed By: #### [id number] #### [facility] [address] [place], [place] [address]Ovdsgtmbeu (Bld) [Mass/Vol]14.1 g/dKHeztvq09.0-16.0[facility] HospitalComment on above:Performed By: #### [id number] #### [facility] [address] [place], [place] [address]Badkd Absolute2.0 E9/LNormal1.0-4.0[facility] Comment on above:Performed By: #### [id number] #### [facility] [address] [place] [address]Whzckgchevq/100 WBC (Bld)24.1 %Nuacpz24.0-50.0[facility] HospitalComment on above:Performed By: #### [id number] #### [facility] [address] [place] [address]YIT (RBC) [Entitic mass]30.7 ioDtxmgv54.0-34.0[facility] HospitalComment on above:Performed By: #### [id number] #### [facility] [address] [place] [address]AWQF (RBC) [Mass/Vol]34.5 g/tNTeulwg89.4-36.0[facility] HospitalComment on above:Performed By: #### [id number] #### [facility] [address] [place], [place] [address]NOJ (RBC) [Entitic vol]88.8 fRWxwvah95.0-100.0[facility] HospitalComment on above:Performed By: #### [id number] #### [facility] [address] [place], [place] [address]Qnig Absolute0.5 E9/LNormal0.2-1.0[facility] Comment on above:Performed By: #### [id number] #### [facility] [address] [place], [place] [address]Hkfbljhle/100 WBC (Bld)6.8 %Normal4.0-14.0[facility] HospitalComment on above:Performed By: #### [id number] #### [facility] [address] [place], [place] [address]Jhnfjd Absolute5.4 E9/LNormal2.0-7.5FOhioHealth Riverside Methodist Hospital Comment on above:Performed By: #### [id number] #### [facility] [address] [place], [place] [address]Yyxzsm Auto66.0 %Nvhurx33.0-75.0[facility] Comment on above:Performed By: #### [id number] #### [facility] [address] [place] [address]Drxcfghj187.0 E9/ITocwrr560.0-500.0[facility] Comment on above:Performed By: #### [id number] #### [facility] [address] [place] [address]Hnszoeor mean volume (Bld) [Entitic vol]8.0 fLNormal6.4-10.8 [facility] HospitalComment on above:Performed By: #### [id number] #### [facility] [address] [place], [place] [address]VYT6.6 E12/LNormal4.3-5.9[facility] HospitalComment on above:Performed By: #### [id number] #### [facility] [address] [place] [address]XTP3.1 E9/LNormal4.0-11.0[facility] HospitalComment on above:Performed By: #### [id number] #### [facility] [address] [place] [address]GCGZAJOIOZmtqvkv By: SYSTEM SYSTEM on 07-49-9621Ptteibufdybt Screen method >1000 ng/mL Ql (U)NEGATIVE 7 [...] {ratio}Normal 1.1 - 2.2Remisol ChemALP [Catalytic activity/Vol]89 [iU]/wWudbmf51 - 98 Int._Unit/LRemisol ChemALT No additional P-5'-P [Catalytic activity/Vol]20 [iU]/dNormal6 - 46 Int._Unit/LRemisol ChemAnion gap [Moles/Vol]11 mmol/LNormal6 - 16 mEq/LRemisol ChemAST [Catalytic activity/Vol]22 [iU]/dNormal5 - 43 Int._Unit/LRemisol ChemBilirubin [Mass/Vol]0.6 mg/dLNormal0.0 - 1.1 mg/dLRemisol ChemCalcium [Mass/Vol]9.2 mg/dLNormal8.9 - 11.1 mg/dLRemisol ChemChloride [Moles/Vol]101 mmol/HHlcckl750 - 111 mmol/LRemisol ChemCO2 [Moles/Vol]28 mmol/L Oliaxd13 - 31 mmol/LRemisol ChemCreatinine [Mass/Vol]0.9 mg/dLNormal0.5 - 1.3 mg/dLRemisol ChemEthanol Lvlmg/dLNormal<=11mg/dLRemisol ChemGFR/1.73 sq M.predicted MDRD (S/P/Bld) [Vol rate/Area]67 mL/min/1.73 u1Rmpliu>=59mL/min/1.73 b7Zdajeha ChemGlobulin (S) [Mass/Vol]2.9 g/dLNormal1.4 - 4.0 gm/dLRemisol Chem Glucose [Mass/Vol]133 mg/tZMwknuq48 - 199 mg/dLRemisol ChemPotassium [Moles/Vol] 3.5 mmol/LNormal3.5 - 5.3 mmol/LRemisol ChemProtein [Mass/Vol]6.9 g/dLNormal6.0 - 7.8 gm/dLRemisol ChemSodium [Moles/Vol]136 mmol/RMoxduh247 - 145 mmol/LRemisol ChemUrea nitrogen [Mass/Vol]22 mg/dLHigh5 - 21 mg/dLRemisol ChemUrea nitrogen/Creatinine [Mass ratio]24 mg/raSmke13 - 20Remisol ChemCMPon 12-12-2024 Albumin [Mass/Vol]4.0 g/dLNormal3.3-5.0[facility] HospitalComment on above:Performed By: #### [id number] #### [facility] [address] [place], [place] [address]Nrwfhja/Globulin [Mass ratio]1.4 {ratio}Normal1.1-2.2FOhioHealth Riverside Methodist HospitalComment on above:Performed By: #### [id number] #### [facility] [address] [place], [place] [address]Kyr Phos89 Int._Unit/UMysdig96-53ZvbzsiMagruder Memorial Hospital Comment on above:Performed By: #### [id number] #### [facility] [address] [place] [address]TLZ63 Int._Unit/LNormal6-46[facility] HospitalComment on above:Performed By: #### [id number] #### [facility] [address] [place], [place] [address]Sbjim gap [Moles/Vol]11 mmol/LNormal6-16[facility] HospitalComment on above:Performed By: #### [id number] #### [facility] [address] [place] [address]ENM20 Int._Unit/LNormal5-43[facility] HospitalComment on above:Performed By: #### [id number] #### [facility] [address] [place], [place] [address]Rlvc Total0.6 mg/dLNormal0.0-1.1FOhioHealth Riverside Methodist Hospital Comment on above:Performed By: #### [id number] #### [facility] [address] [place], [place] [address]MHG/Creat Ratio24 No YvhfuAkms81-16BeiyfrMagruder Memorial Hospital Comment on above:Performed By: #### [id number] #### [facility] [address] [place], [place] [address]Wlpmzri [Mass/Vol]9.2 mg/dLNormal8.9-11.1FOhioHealth Riverside Methodist HospitalComment on above:Performed By: #### [id number] #### [facility] [address] [place] [address]Dcnwfbfp [Moles/Vol]101 mmol/UChqbbv585-253RfaqueMagruder Memorial HospitalComment on above:Performed By: #### [id number] #### [facility] [address] [place], [place] [address]MW0 [Moles/Vol]28 mmol/VTrxcue21-10YnfumgMagruder Memorial Hospital Comment on above:Performed By: #### [id number] #### [facility] [address] [place], [place] [address]Lglfaixiip [Mass/Vol]0.9 mg/dLNormal0.5-1.3FOhioHealth Riverside Methodist HospitalComment on above:Performed By: #### [id number] #### [facility] [address] [place], [place] [address]Dbliwpwe (S) [Mass/Vol]2.9 g/dLNormal1.4-4.0Magruder Memorial HospitalComment on above:Performed By: #### [id number] #### [facility] [address] [place], [place] [address]Qfnacyi [Mass/Vol]133 mg/aSDljian95-564NfdyrjMagruder Memorial HospitalComment on above:Performed By: #### [id number] #### [facility] [address] [place], [place] [address]Rbvifhxdf [Moles/Vol]3.5 mmol/LNormal3.5-5.3FOhioHealth Riverside Methodist HospitalComment on above:Performed By: #### [id number] #### [facility] [address] [place], [place] [address]Ghltdnp [Mass/Vol]6.9 g/dLNormal6.0-7.8Mag[facility]uder Memorial HospitalComment on above:Performed By: #### [id number] #### [facility] [address] [place], [place] [address]Knrhoe [Moles/Vol]136 mmol/VVevrzd180-156JtoydaMagruder Memorial HospitalComment on above:Performed By: #### [id number] #### [facility] [address] [place], [place] [address]Vyuw nitrogen [Mass/Vol]22 mg/dLHigh5-21Mag[facility]uder Memorial HospitalComment on above:Performed By: #### [id number] #### [facility] [address] [place] [address]JM Clinical Summaryon 66-42-7137UW Clinical SummaryED Clinical Summary [address] [address] ED Clinical Summary Person Information Name: SHEY OBRIEN/Herminia Age: 74 Years : 1950 Sex: Female Language: Bahamian PCP: LATRELL JACK MD Marital Status: Single [...] 12/12/2024 17:40:09 12/12/2024 17:40:09 12/12/2024 17:40:09 ADDRESS: [address] [place] [id number] PHYS DOC NOTES: MEDICAL INFORMATION: Prescriptions Given: [...] (at bedtime). fluticasone nasal (Flonase 0.05 mg/inh [place]) 2 Sprays Nasal Inhalation every day. losartan [...] culture. MHP evaluated. Patient be placed at [address] Kim. Assessment/Plan Suicidal ideation [...] a day (at bedtime) Flonase 0.05 mg/inh [place], 2 spray(s), Nasal, Daily losartan 25 mg [...] 88.8 fL (12/12/24 13:50 (more content not included)...[facility] CenterComment on above:Result Comment: Electronically Signed By: Elmer Kohli DO\.br\Date and Time Signed: 12/12/24 17:26 EDTED Patient Education Noteon 81-70-3764WJ Patient Education NoteED Patient Education NoteNormMary [facility] Patient Summaryon 93-15-4319IP Patient SummaryED Patient Summary [place] [id number] Patient Discharge Instructions Person Information Name: SHEY OBRIEN Age: 74 Years Arrival Date: 12/12/2024 13:24:04 Discharge Diagnosis: Suicidal ideation Primary Care Physician: LATRELL JACK MD Provider Information Primary Provider: Elmer Kohli DO Advanced Slot Machine Repairer:None The exam and treatment you received in the Emergency Department were for an urgent problem and are not intended as complete care. It is important that you follow up with a doctor, nurse practitioner,or physician???s bricklayer's assistant for ongoing care. If your symptoms [...] opioids can be used to help relieve lnnsqlxp-vo-bnvkam pain and are often prescribed following a [...] struggling with addiction, tell your health healthcare sales representative and askfor guidance or call [facility]???S National Helpline at 1-425-771-HTNY. h Source: US Department of Health and Human Services/Center for Disease Control & Prevention Amer (more content not included)...NormalMagruder Memorial HospitalEthanolon 71-76-8395Gufappz Lvl<10Normal<=11[facility] Comment on above:Performed By: #### [id number] #### [facility] [address] [place], [place] [address]NYLZUWHGIDImhakfk By: SYSTEM SYSTEM on 30-57-2931Sqtuwurcm/100 WBC (Bld)0.3 %Normal0.0 - 2.0 %Remisol HemeBasophils/Leukocytes Auto (Bld) [Pure # fraction]0.0 E9/LNormal0.0 - 0.2 E9/LRemisol HemeEosinophils (Bld) [#/Vol]0.2 E9/LNormal0.0 - 0.5 E9/LRemisol HemeEosinophils/100 WBC (Bld)2.8 %Normal0.0 - 8.0 %Remisol HemeErythrocyte distribution width (RBC) [Ratio]14.7 %High10.9 - 14.2 %Remisol HemeHematocrit (Bld) [Volume fraction]40.9 %Peylsk62.0 - 46.0 % Remisol HemeHemoglobin (Bld) [Mass/Vol]14.1 g/dGBordnt66.0 - 16.0 gm/dLRemisol HemeLymphocytes (Bld) [#/Vol]2.0 E9/LNormal1.0 - 4.0 E9/LRemisol Heme Lymphocytes/100 WBC (Bld)24.1 %Jcpadu92.0 - 50.0 %Remisol HemeMCH (RBC) [Entitic mass]30.7 aiZntywi09.0 - 34.0 pgRemisol HemeMCHC (RBC) [Mass/Vol]34.5 g/dL Wlhflq52.4 - 36.0 gm/dLRemisol HemeMCV (RBC) [Entitic vol]88.8 dLTszjhl48.0 - 100.0 fLRemisol HemeMonocytes (Bld) [#/Vol]0.5 E9/LNormal0.2 - 1.0 E9/LRemisol HemeMonocytes/100 WBC (Bld)6.8 %Normal4.0 - 14.0 %Remisol HemeNeutrophils (Bld) [#/Vol]5.4 E9/LNormal2.0 - 7.5 E9/LRemisol HemeNeutrophils/100 WBC (Bld)66.0 % Pwwtpm91.0 - 75.0 %Remisol HemePlatelet mean volume (Bld) [Entitic vol]8.0 fL Normal6.4 - 10.8 fLRemisol HemePlatelets (Bld) [#/Vol]168.0 E9/GLuhuyh886.0 - 500.0 E9/LRemisol HemeRBC (Bld) [#/Vol]4.6 E12/LNormal4.3 - 5.9 E12/LRemisol HemeWBC corrected for nucl RBC Auto (Bld) [#/Vol]8.1 E9/LNormal4.0 - 11.0 E9/L Remisol HemeU Drug Screenon 12-12-2024 Amph ScrNegativeNormalNEGATIVEMagruder Memorial HospitalComment on above:Result Comment: Negative Cutoff: <1000 ng/mLPerformed By: #### [id number] #### [facility] [address] [place], [place] [address]D Jessica ScrNegativeNormalNEGATIVEMagruder Memorial Hospital Comment on above:Result Comment: Negative Cutoff: <200 ng/mLPerformed By: #### [id number] #### [facility] [address] [place], [place] [address]Z Benzodia ScrNegativeNormalNEGATIVEMagruder Memorial Hospital Comment on above:Result Comment: Negative Cutoff: <200 ng/mLPerformed By: #### [id number] #### [facility] [address] [place] [address]I Cannab ScrNegativeNormalNEGATIVEMagruder Memorial Hospital Comment on above:Result Comment: Negative Cutoff: <50 ng/mLPerformed By: #### [id number] #### [facility] [address] [place] [address]Q Cocaine ScrNegativeNormalNEGATIVEMagruder Memorial Hospital Comment on above:Result Comment: Negative Cutoff: <300 ng/mLPerformed By: #### [id number] #### [facility] [address] [place] [address]J FentanylNegativeNormalNEGCorey Hospital Comment on above:Result Comment: Negative Cutoff: <5 ng/mL These drug screen results are to be used for medical (i.e., treatment) purposes only. Unconfirmed drug screening results must not be used for non-medical purposes (e.g., employment testing, legal testing).Performed By: #### [id number] #### [facility] [address] [place], [place] [address]M Opiate ScrNegativeNormalNEGCorey Hospital Comment on above:Result Comment: Negative Cutoff: <300 ng/mLPerformed By: #### [id number] #### [facility] [address] [place] [address]H PCP ScrNegativeNormalNEGCorey Hospital Comment on above:Result Comment: Negative Cutoff: <25 ng/mL These drug screen results are to be used for medical (i.e., treatment) purposes only. Unconfirmed drug screening results must not be used for non-medical purposes (e.g., employment testing, legal testing).Performed By: #### [id number] #### [facility] [address] [place] [address]NB with Cult Rflxon 47-13-8914Fkqqn (U)Light-YellowNormalYellow [facility] Memorial HospitalComment on above:Result Comment: Microscopic readings are only performed on those samples that meet specific criteria set forth by [facility].Performed By: #### [id number] #### [facility] [address] [place], [place] [address]Ckirahz (U) [Mass/Vol]NegativeNormalNegativeMagruder Memorial HospitalComment on above:Performed By: #### [id number] #### [facility] [address] [place], [place] [address]Hbonkde Ql (U)NegativeNormalNegRegency Hospital Cleveland West Comment on above:Performed By: #### [id number] #### [facility] [address] [place], [place] [address]MY BloodNegativeNoyadkin valley community hospitalNegRegency Hospital [facility] Comment on above:Performed By: #### [id number] #### [facility] [address] [place], [place] [address]KD Bacteria1+ /HPFAbnormalTraceMagruder Memorial Hospital Comment on above:Performed By: #### [id number] #### [facility] [address] [place], [place] [address]ZF ClarityClearNormalClearMagruder Memorial HospitalComment on above:Performed By: #### [id number] #### [facility] [address] [place], [place] [address]UP Leuk Est75 [place]/uLAbnormalNegRegency Hospital [facility] West Comment on above:Performed By: #### [id number] #### [facility] [address] [place], [place] [address]AF MucousTraceNormalNegRegency Hospital Cleveland WestComment on above:Performed By: #### [id number] #### [facility] [address] [place], [place] [address]IO NitriteNegativeNormalNegRegency Hospital [facility] Comment on above:Performed By: #### [id number] #### [facility] [address] [place], [place] [address]GH pH5.5Invalid Interpretation Code5.0-9.0Mag[facility] Memorial HospitalComment on above:Performed By: #### [id number] #### [facility] [address] [place] [address]RK ProteinNegativeNormalNegativeMagruder Memorial Hospital Comment on above:Performed By: #### [id number] #### [facility] [address] [place] [address]CI Spec Grav1.009Invalid Interpretation Code1.005-1.030Mag[facility]uder Memorial HospitalComment on above:Performed By: #### [id number] #### [facility] [address] [place] [address]MO Squam Epithelial0-2Invalid Interpretation CodeMagruder Memorial HospitalComment on above:Performed By: #### [id number] #### [facility] [address] [place] [address]RF UrobilinogenNegativeNormalNegRegency Hospital Cleveland WestComment on above:Performed By: #### [id number] #### [facility] [address] [place] [address]Dnewmukjqnqt (U) [Mass/Vol]NegativeNormalNegativeMagruder Memorial HospitalComment on above:Performed By: #### [id number] #### [facility] [address] [place] [address]W[place] Spec DescClean CatchNormalMagruder Memorial HospitalComment on above:Performed By: #### [id number] #### [facility] [address] [place] [address]QPBNYFISYNPdbhwpu By: SYSTEM SYSTEM on 45-38-7831Hgofkptb Auto Ql (U)1+ /HPFInvalid Interpretation CodeTrace/HPFFTMC UA Auto SSBilirubin Ql (U) NegativeNormalNegativemg/dLFTMC UA Auto SSClarity (U)Clear (12/12/24 2:18 PM)NormalClearFTMC UA Auto SSColor (U)Light-Yellow 3 (12/12/24 2:18 PM)NormalYellowPURCELL M[facility]ICIP[facility] [place] UA Auto SSComment on above:Interpretive Data: Microscopic readings are only performed on those samples that meet specific criteria set forth by [facility].Epithelial cells.squamous Auto (Urine sed) [#/Area]0-2 graded/HPFInvalid Interpretation CodePURCELL MUNICIP[facility] [place] UA Auto SSGlucose Ql (U)NegativeNormalNegativemg/dLPURCELL MUNICIPAL [facility]OS[facility] [place] UA Auto SS Hemoglobin Auto test strip (U) [Mass/Vol]NegativeNormalNegativemg/dLPURCELL MUNICIPAL [facility]OS[facility] [place] UA Auto SSKetones Auto test strip Ql (U)NegativeNormalNegativemg/dLPURCELL M[facility]ICIP[facility] [place] UA Auto SS Leukocyte esterase Auto test strip Ql (U)75 [place]/uL [place]/uLInvalid Interpretation CodeNegativeLeu/uLPURCE[facility] [place] UA Auto SSMucus Auto Ql (U)Trace graded/LPFNormal Negativegraded/LPFFCURAHE[facility] [place] [facility] [place] Auto SSNitrite Auto test strip Ql (U)NegativeNormal Negativemg/dLPURCELL M[facility]ICIPAL [facility] [place] UA Auto SSpH (U)5.5 *NA* (12/12/24 2:18 PM)Invalid Interpretation Code5.0 - 9.0[facility] [facility] Auto SSProtein Ql (U)NegativeNormalNegativemg/dLPURCELL M[facility]IP[facility] [place] UA Auto SSSpecific gravity (U) [Rel density] 1.009 *NA* (12/12/24 2:18 PM)Invalid Interpretation Code1.005 - 1.030[facility] [place] [facility] Auto SS Urobilinogen (U) [Mass/Vol]NegativeNormalNegativemg/dLPURCELL M[facility]ICIP[facility] [place] UA Auto SSURINALYSIS Ordered By: Elmer Kohli on 71-66-2598VO Spec DescClean Catch (12/12/24 2:18 PM)NormalPURCELL M[facility]ICIPAL [facility] [place] UA Auto SS XR HIP LT MIN 2Von 66-99-3147Q[address] [address] XRay Report Signed Patient: SHEY OBRIEN MR#: [id number] : 1950 Acct:[id number] Age/Sex: 74 / F ADM Date: 12/12/24 Loc: RAD Attending Dr: Will Chintan DRAFTER [employer] Ordering Physician: Will Woodson NP Date of Service: 12/12/24 Procedure(s): XR hip LT min 2V Accession Number(s): [id number] cc: Will Woodson NP; Latrell Jack M.D. The [address] [address] Patient Name: SHEY OBRIEN MRN: [id number] date: 1950 Sex: F Assigned Patient Location: PM Current Patient Location: Accession/Order Number: [id number] Exam Date: 12/12/2024 10:32 Report Date: 12/12/2024 [...] Narvaez M.D. 12/12/2024 10:34 AM Dictation Location: [place] [address] Electronically authenticated by: [id number] Y Date: 12/12/2024 10:34 Dictated By: Juliane Narvaez M.D. Signed By: 12/12/24 1037 DD/ 1034 TD/TT: Structural Mill Supervisor:TBHRadiology, Radiologist, MD - 12/12/[address] [address] XRay Report Signed Patient: SHEY OBRIEN MR#: [id number] : 1950 Acct:[id number] Age/Sex: 74 / F ADM Date: 12/12/24 Loc: RAD Attending Dr: Will Woodson NP Ordering Physician: Will Woodson NP Date of Service: 12/12/24 Procedure(s): XR hip LT min 2V Accession Number(s): [id number] cc: Will Woodson NP; Latrell Jack M.D. [place] [id number] Patient Name: SHEY OBRIEN MRN: [id number] date: 1950 Sex: F Assigned Patient Location: PM Current Patient Location: PM Accession/Order Number: [id number] Exam Date: 12/12/2024 10:32 Report Date: 12/12/2024 [...] Narvaez M.D. 12/12/2024 10:34 AM Dictation Location: [place] [address] Electronically authenticated by: [id number] Y Date: 12/12/2024 10:34 Dictated By: Juliane Narvaez M.D. Signed By: 12/12/24 1037 DD/ 1034 TD/TT: Structural Mill Supervisor: NOMS HealthcareRadiology Study observation (narrative)NOMS HealthcareXR HIP LT MIN 2VOrdered By: Radiologist Radiology on 23-84-8838EY[facility] Work Phone: eGFRon 51-36-5804oQMK58 mL/min/1.73 e5Xrczku>=59[facility] Orthopaedic InstituteComment on above:Performed By: #### [id number] #### [facility] [address] [place] [address]ZAS CBC WITH AUTO DIFFon 39-23-6652RQJMEXPNN ABSOLUTE [id number] HealthcareBasophils/100 WBC (Bld)0.4 %0.2 - 2.0 %NOM HealthcareEosinophils/100 WBC (Bld)3.5 %0.9 - 7.0 %[facility] HealthcareErythrocyte distribution width (RBC) [Ratio]12.8 %11.0 - 15.0 %[facility] HealthcareHematocrit (Bld) [Volume fraction]39.2 %36.0 - 48.0 %[facility] Memorial HospitalHemoglobin (Bld) [Mass/Vol]13.1 g/dL12.0 - 16.0 g/dLCedar County Memorial HospitalIMMATURE GRANULOCYTES ABS AUTO0.09HighNOSaint Luke's East HospitalImmature granulocytes/100 WBC (Bld)1.3 %High0.0 - 0.5 %[facility] HealthcareInterpretation and review of laboratory resultsAbnormalCedar County Memorial HospitalLYMPHOCYTES ABSOLUTE AUTO1.2 NOMCoxhealthLymphocytes/100 WBC (Bld)18.3 %Low20.5 - 60.0 %University HospitalH (RBC) [Entitic mass]31.9 pg26.7 - 34.0 pgNOSaint Luke's East HospitalMCHC (RBC) [Mass/Vol] 33.4 g/dL29.9 - 35.2 g/dLUniversity HospitalV (RBC) [Entitic vol]95.4 fL81.0 - 99.0 fLCedar County Memorial HospitalMONOCYTES ABSOLUTE AUTO0.4NOMS HealthcareMonocytes/100 WBC (Bld)6.5 %1.7 - 12.0 %[facility] Memorial HospitalNEUTROPHILS ABSOLUTE AUTO4.7NOMS [facility] Neutrophils/100 WBC (Bld)70 %43.0 - 75.0 %[facility] Memorial HospitalPlatelet mean volume (Bld) [Entitic vol]10.6 fL9.5 - 13.5 fLNOSaint Luke's East HospitalTB EO #0.2[facility] Healthcare TBH FLS631PDGZFulton State Hospital RBC4.11LowNOSaint Luke's East HospitalTB WBC6.8NOSaint Luke's East Hospital CLINISYNCSALT LAKE REGIONAL [facility] HealthcareCNOVon 34-75-6186LLPRUinsvg Visit (GENN) SHEY OBRIEN ([id number]) 1950 F Date Time Provider Department 08/07/24 [...] dry Temperature: No Drains: No Katarzyna Snyder APRN.ROTOR CASTING MACHINE OPERATOR 08/07/2024 3:37 PM Signed [facility] Clinic Date: [...] completed prior to appointment Katarzyna Snyder, MSN, ROTOR CASTING MACHINE OPERATOR August 07, 2024 Referring Provider: BARI CASTILLO [[id number]] Allergies As of Date: 08/07/2024 (No Known Allergies) Date Reviewed: 08/07/2024 Reviewed by: Olga Lidia Blake MA - Fully Assessed Reason for Visit: Post Op [174] Primary Visit Diagnosis:Postoperative visit [Z (more content not included)... NormalPrem[facility] 12 leadon 60-01-1643Fkhcpfcihja Rate : 66 BPM Atrial Rate : 66 BPM P-R Interval : 158 ms QRS Duration : 78 ms Q-T Interval : 404 ms QTC Calculation(Bazett) : 423 ms Calculated P [place] : 32 degrees Calculated R [place] : 14 degrees Calculated T [place] : 54 degrees NORMAL SINUS RHYTHM NORMAL ECG Confirmed by MD MCCLENDON HEBA ([id number]) on 07/29/2024 12:16:17 PM NAME : SHEY OBRIEN PID : [id number] : 1950 Gender : Female Race : ORD : [id number] Procedure Date : Jul 23 2024 12:08:10 Edit Date : Jul 29 2024 12:16:18 Diagnosis: NORMAL SINUS RHYTHM NORMAL ECG Confirmed by MD MCCLENDON HEBA ([id number]) on 07/29/2024 12:16:17 PM Test Reason : [...] QTC Calculation(Bazett) : 423 ms Calculated P [place] : 32 degrees Calculated R [place] : 14 degrees Calculated T [place] : 54 degrees NORMAL SINUS RHYTHM NORMAL ECG Confirmed by MD MCCLENDON HEBA ([id number]) on 07/29/2024 12:16:17 PM NAME : SHEY OBRIEN PID : [id number] : 1950 Gender : Female Race : ORD : [id number] Procedure Date : Jul 23 2024 12:08:10 Edit Date : Jul 29 2024 12:16:18 Diagnosis: NORMAL SINUS RHYTHM NORMAL ECG Confirmed by MD MCCLENDON HEBA ([id number]) on 07/29/2024 12:16:17 PM Test Reason : Location : 119 : A17 A17 Overread By : MD MCCLENDON HEBA Edited By : MD MCCLENDON HEBA Referred By : XAVIER BOYD Acquired by : SADE HA [facility] 12 leadOrdered By: Radiologist Radiology on 75-27-2361RAXB [employer] Work Phone: basic metabolic 2000 panelon 68-75-7745Gwpsc gap [Moles/Vol]12 mmol/LNormal8-15[facility] on above:Order Comment: Specimen Type: BLOOD SPECIMEN Ordering Facility: [facility] Address: [address] [place], [place] [address]Performed By: #### 88330-7, 75648-5 #### [facility] CLIA [id number] [address] [place] [address] [place] OF AMERICACalcium [Mass/Vol]9.0 mg/dL Normal8.5-10.2CS[facility] on above:Order Comment: Specimen Type: BLOOD SPECIMEN Ordering Facility: [facility] Address: [address] [place], [place] [address]Performed By: #### 58330-1, 41649-0 #### [facility] CLIA [id number] [address] [place] [address] [place] AMERICAChloride [Moles/Vol]107 mmol/MHdxpqc20-565XnkegqrjdCherrington Hospital on above:Order Comment: Specimen Type: BLOOD SPECIMEN Ordering Facility: [facility] Address: [address] [place], [place] [address]Performed By: #### 69842-7, 59238-8 #### [facility] CLIA [id number] [address] [place] [address] [place] AMERICACO2 [Moles/Vol]24 mmol/L Riejcx85-64ZvmmydkoxCherrington Hospital on above:Order Comment: Specimen Type: BLOOD SPECIMEN Ordering Facility: [facility] Address: [address] [place], [place] [address]Performed By: #### 76661-1, 94783-4 #### [facility] CLIA [id number] [address] [place] [address] [place] AMERICACreatinine [Mass/Vol]0.92 mg/dLNormal0.58-0.96[facility] on above:Order Comment: Specimen Type: BLOOD SPECIMEN Ordering Facility: [facility] Address: [address] [place], [place] [address]Performed By: #### 37160-5, 37097-9 #### [facility] CLIA [id number] [address] [place] [address] [place] AMERICACreatinine and Glomerular filtration rate.predicted panel (S/P/Bld)66 mL/min/1.73m???Normal>=60[facility] on above:Order Comment: Specimen Type: BLOOD SPECIMEN Ordering Facility: [facility] Address: [address] [place], [place] [address]Result Comment: Estimated Glomerular Filtration Rate (eGFR) is [...] not accurately reflect actual GFR.Performed By: #### 33574-8, 09982-7 #### [facility] CLIA [id number] [address] [place] [address] [place] AMERICAGlucose [Mass/Vol]112 mg/dL Ibov42-24DvzpevcstCherrington Hospital on above:Order Comment: Specimen Type: BLOOD SPECIMEN Ordering Facility: [facility] Address: [address] [place], [place] [address]Result Comment: The [place] [employer] (ADA) provides guidance for cutoff [...] Standards of Medical Care in Diabetes 2016, [place] [employer]. Diabetes Care. 2016.39(Suppl 1).Performed By: #### 29962-9, 91389-1 #### [facility] CLIA [id number] [address] [place] [address] [place] AMERICAPotassium [Moles/Vol]3.4 mmol/LLow3.7-5.1CS[facility] on above:Order Comment: Specimen Type: BLOOD SPECIMEN Ordering Facility: [facility] Address: [address] [place], [place] [address]Performed By: #### 07004-8, 50480-0 #### [facility] IA [id number] [address] [place] [address] [place] AMERICASodium [Moles/Vol]143 mmol/L Bsyjyv043-707MhjinxwvgCherrington Hospital on above:Order Comment: Specimen Type: BLOOD SPECIMEN Ordering Facility: [facility] Address: [address] [place], [place] [address]Performed By: #### 42925-4, 90892-7 #### [facility] CLIA [id number] [address] [place] [address] [place] AMERICAUrea nitrogen [Mass/Vol]10 mg/dLNormal7-21[facility] on above:Order Comment: Specimen Type: BLOOD SPECIMEN Ordering Facility: [facility] Address: [address] [place], [place] [address]Performed By: #### 10848-9, 24524-3 #### [facility] CLIA [id number] [address] [place] [address] STATES OF AMERICACASE MANAGEMon 07-26-2024 CASE MANAGEMHNO ID: [id number] Author: KRISTIE DIAZ, ? Service: ? Author Type: ? Type: Care Mgt Progress Note Filed: 07/26/2024 11:58 Note Text: CARE MANAGEMENT PROGRESS NOTE SERVICE DATE: 07/26/2024 SERVICE TIME: 11:57 AM LOS: 2 days IMM Follow Up Copy Given: Yes Copy given to:: Patient Method: In Person SIGNATURE: Kristie Diaz CMA PATIENT NAME: Shey Obrien DATE: July 26, 2024 TIME: 11:57 AMNormalAshtabula County Medical Center W Auto Differential panel (Bld)on 79-85-9588Jtgsofyns (Bld) [#/Vol]10*3/uLNormal<0.11[facility] on above:Order Comment: Specimen Type: BLOOD SPECIMEN Ordering Facility: [facility] Address: [address] [place], [place] [address]Performed By: #### 55148-0, HSTNT, 83026-8, 2777-1 #### [facility] CLIA [id number] [address] [place] [address] [place] AMERICABasophils/100 WBC (Bld)0.3 % NormalCherrington Hospital on above:Order Comment: Specimen Type: BLOOD SPECIMEN Ordering Facility: [facility] Address: [address] [place], [place] [address]Performed By: #### 31083-3, HSTNT, , 2776-07 #### [facility] CLIA [id number] [address] [place] [address] [place] OF AMERICADifferential cell count method Nom (Bld)AutoNormalCSCCI Hospital [place] on above:Order Comment: Specimen Type: BLOOD SPECIMEN Ordering Facility: [facility] Address: [address] [place], [place] [address]Performed By: #### 20308-0, HSTNT, , 2776-07 #### [facility] CLIA [id number] [address] [place] [address] [place] AMERICAEosinophils (Bld) [#/Vol] 0.08 10*3/uLNormal<0.46[facility] on above:Order Comment: Specimen Type: BLOOD SPECIMEN Ordering Facility: [facility] Address: [address] [place], [place] [address]Performed By: #### 31597-1, HSTNT, , 2776-07 #### [facility] CLIA [id number] [address] [place] [address] [place] AMERICAEosinophils/100 WBC (Bld)1.3 %NormalCherrington Hospital on above:Order Comment: Specimen Type: BLOOD SPECIMEN Ordering Facility: [facility] Address: [address] [place], [place] [address]Performed By: #### 76666-5, HSTNT, , 2776-07 #### [facility] CLIA [id number] [address] [place] [address] [place] AMERICAErythrocyte distribution width (RBC) [Ratio]13.9 %Bpahld88.5-15.0[facility] on above:Order Comment: Specimen Type: BLOOD SPECIMEN Ordering Facility: [facility] Address: [address] [place], [place] [address]Performed By: #### 30198-7, HSTNT, , 2776-07 #### [facility] CLIA [id number] [address] [place] [address] [place] AMERICAHematocrit (Bld) [Volume fraction]35.1 %Low36.0-46.0[facility] on above:Order Comment: Specimen Type: BLOOD SPECIMEN Ordering Facility: [facility] Address: [address] [place], [place] [address]Performed By: #### 41285-7, HSTNT, , 2776-07 #### [facility] CLIA [id number] [address] [place] [address] [place] AMERICAHemoglobin (Bld) [Mass/Vol] 12.2 g/wOSqmtuc68.5-15.5[facility] on above:Order Comment: Specimen Type: BLOOD SPECIMEN Ordering Facility: [facility] Address: [address] [place], [place] [address]Performed By: #### 57995-6, HSTNT, , 2776-07 #### [facility] CLIA [id number] [address] [place] [address] [place] AMERICAImmature granulocytes (Bld) [#/Vol]0.04 10*3/uLNormal<0.10[facility] on above:Order Comment: Specimen Type: BLOOD SPECIMEN Ordering Facility: [facility] Address: [address] [place], [place] [address]Performed By: #### 76670-5, HSTNT, , 2776-07 #### [facility] CLIA [id number] [address] [place], [place] [address] [place] AMERICAImmature granulocytes/100 WBC (Bld)0.7 %NormalCherrington Hospital on above:Order Comment: Specimen Type: BLOOD SPECIMEN Ordering Facility: [facility] Address: [address] [place], [place] [address]Performed By: #### 23454-9, HSTNT, , 2776-07 #### [facility] CLIA [id number] [address] [place] [address] [place] AMERICALymphocytes (Bld) [#/Vol] 1.90 10*3/uLNormal1.00-4.00[facility] on above:Order Comment: Specimen Type: BLOOD SPECIMEN Ordering Facility: [facility] Address: [address] [place], [place] [address]Performed By: #### 57313-4, HSTNT, , 2776-07 #### [facility] CLIA [id number] [address] [place] [address] [place] AMERICALymphocytes/100 WBC (Bld) 30.9 %[facility] on above:Order Comment: Specimen Type: BLOOD SPECIMEN Ordering Facility: [facility] Address: [address] [place], [place] [address]Performed By: #### 86108-0, HSTNT, , 2776-07 #### [facility] CLIA [id number] [address] [place] [address] (RBC) [Entitic mass]32.9 vrSksotk77.0-34.0[facility] on above:Order Comment: Specimen Type: BLOOD SPECIMEN Ordering Facility: [facility] Address: [address] [place], [place] [address]Performed By: #### 53031-9, HSTNT, , 2776-07 #### [facility] CLIA [id number] [address] [place] [address] (RBC) [Mass/Vol]34.8 g/aUYmtwhu63.5-36.0[facility] on above:Order Comment: Specimen Type: BLOOD SPECIMEN Ordering Facility: [facility] Address: [address] [place], [place] [address]Performed By: #### 98054-6, HSTNT, , 2776-07 #### [facility] CLIA [id number] [address] [place] [address] [place] AMERICAMCV (RBC) [Entitic vol]94.6 eAQifbll44.0-100.0[facility] on above:Order Comment: Specimen Type: BLOOD SPECIMEN Ordering Facility: [facility] Address: [address] [place], [place] [address]Performed By: #### 32090-5, HSTNT, , 2776-07 #### [facility] CLIA [id number] [address] [place] [address] [place] AMERICAMonocytes (Bld) [#/Vol]0.46 10*3/uLNormal<0.87[facility] on above:Order Comment: Specimen Type: BLOOD SPECIMEN Ordering Facility: [facility] Address: [address] [place], [place] [address]Performed By: #### 21466-3, HSTNT, , 2776-07 #### [facility] CLIA [id number] [address] [place], [place] [address] [place] AMERICAMonocytes/100 WBC (Bld)7.5 % NormalCherrington Hospital on above:Order Comment: Specimen Type: BLOOD SPECIMEN Ordering Facility: [facility] Address: [address] [place], [place] [address]Performed By: #### 07486-4, HSTNT, , 2776-07 #### [facility] CLIA [id number] [address] [place] [address] [place] AMERICANeutrophils (Bld) [#/Vol] 3.64 10*3/uLNormal1.45-7.50[facility] on above:Order Comment: Specimen Type: BLOOD SPECIMEN Ordering Facility: [facility] Address: [address] [place], [place] [address]Performed By: #### 20111-8, HSTNT, 01573-1, 2776-1 #### [facility] CLIA [id number] [address] [place] [address] [place] AMERICANeutrophils/100 WBC (Bld) 59.3 %NormalCherrington Hospital on above:Order Comment: Specimen Type: BLOOD SPECIMEN Ordering Facility: [facility] Address: [address] [place], [place] [address]Performed By: #### 72207-6, HSTNT, , 2776- #### [facility] CLIA [id number] [address] [place] [address] [place] AMERICANucleated RBC (Bld) [#/Vol] 10*3/uLNormal<0.01[facility] on above:Order Comment: Specimen Type: BLOOD SPECIMEN Ordering Facility: [facility] Address: [address] [place], [place] [address]Performed By: #### 15620-7, HSTNT, , 2776- #### [facility] CLIA [id number] [address] [place] [address] [place] AMERICANucleated RBC/100 WBC (Bld) [Ratio]0.0 /100 WBCNormalCSCCI Hospital [place] on above:Order Comment: Specimen Type: BLOOD SPECIMEN Ordering Facility: [facility] Address: [address] [place], [place] [address]Performed By: #### 82501-6, HSTNT, , 2776-1 #### [facility] CLIA [id number] [address] [place] [address] [place] AMERICAPlatelet mean volume (Bld) [Entitic vol]9.9 fLNormal9.0-12.7[facility] on above: Order Comment: Specimen Type: BLOOD SPECIMEN Ordering Facility: [facility] Address: [address] [place], [place] [address]Performed By: #### 85939-7, HSTNT, 66193-6, 2776-1 #### [facility] CLIA [id number] [address] [place] [address] [place] AMERICAPlatelets (Bld) [#/Vol]143 10*3/mCFiq067-672UanensukiCherrington Hospital on above:Order Comment: Specimen Type: BLOOD SPECIMEN Ordering Facility: [facility] Address: [address] [place], [place] [address]Performed By: #### 77005-8, HSTNT, , 2776- #### [facility] CLIA [id number] [address] [place] [address] [place] AMERICARBC (Bld) [#/Vol]3.71 10*6/uLLow3.90-5.20[facility] on above:Order Comment: Specimen Type: BLOOD SPECIMEN Ordering Facility: [facility] Address: [address] [place], [place] [address]Performed By: #### 61511-9, HSTNT, , 2776- #### [facility] CLIA [id number] [address] [place] [address] [place] AMERICAWBC (Bld) [#/Vol]6.14 10*3/uLNormal3.70-11.00[facility] on above:Order Comment: Specimen Type: BLOOD SPECIMEN Ordering Facility: [facility] Address: [address] [place], [place] [address]Performed By: #### 67723-9, HSTNT, , 2776-1 #### [facility] CLIA [id number] [address] [place] [facility] 86-08-6699JHGKRnidcy TextNoOhioHealth Marion General HospitalCNon 96-12-4743LSAYMZN ID: [id number] Author: KASSY VERDE APRN.ROTOR CASTING MACHINE OPERATOR Service: General Surgery Author Type: Nurse Practitioner [...] in the PACU and transferred to the [facility] for the remainder of her postoperative [...] mg) Tab Commonly know (more content not included)...NormalThe [facility] Magnesium SerPl-mCncon 85-44-9245Cighedqpn [Mass/Vol]2.0 mg/dLNormal1.7-2.3 [facility] HospitalComment on above:Order Comment: Specimen Type: BLOOD SPECIMEN Ordering Facility: [facility] Address: [address] [place], [place] [address]Performed By: #### 51834-2, 48999-2 #### [facility] CLIA [id number] [address] [place], [place] [address] [address] [place] AMERICAPT EDon [id number] EDHNO ID: [id number] Author: NOREEN RODNEY DTR Service: Nutrition Therapy Author Type: Data Compiler Type: Patient Education Filed: 07/26/2024 14:04 Note [...] DATE: July 26, 2024 TIME: 2:04 PM PAGER:NormalThe Christ HospitalPhosphate SerPl-mCncon 87-90-7090Jmjrvkyce [Mass/Vol]2.5 mg/dLLow2.7-4.8CFirelands Regional Medical [facility] Comment on above:Order Comment: Specimen Type: BLOOD SPECIMEN Ordering Facility: [facility] Address: [address] [place], [place] [address]Performed By: #### 03448-9, 54771-9 #### [facility] CLIA [id number] [address] [place] [address] [place] AMERICAHIGH SENSITIVITY TROPONIN T on 29-21-3442Szfxhokc T.cardiac High sensitivity method [Mass/Vol]12 ng/LHigh<12 [facility] HospitalComment on above:Order Comment: Specimen Type: BLOOD SPECIMEN Ordering Facility: [facility] Address: [address] [place], [place] [address]Performed By: #### 63879-9, 10643-5 #### [facility] CLIA [id number] [address] [place] [address] [place] AMERICAXR UPPER GI SINGLE CONTRAST on 95-13-6522OS UPPER GI SINGLE CONTRAST* * *Final Report* [...] (min:sec). Air kerma: 38.9 mGy. RESULT: Preliminary remote sensing program manager: Gastric distention. No dilated bowel in the [...] ESOPHAGEAL TRANSIT, LIKELY RELATED TO POSTOPERATIVE EDEMA. Structural Mill Supervisor: [facility] Transcribe Date/Time: Jul 25 2024 10:06A Dictated by : NAHID PACHECO MD This examination was interpreted and the report reviewed and electronically signed by: MARTHA CATALAN MD on Jul 25 2024 10:13AM EST [id number]_IDCSIACNNormalFlower Hospital POSTPROC EVALon [id number] POSTPROC EVALHNO ID: [id number] Author: FLOR SNOW MD Service: ? Author Type: Physician Type: Anesthesia Postprocedure Evaluation Filed: 07/24/2024 15:38 Note Text: POST ANESTHESIA EVALUATION NOTE : 1950 Procedure Summary Date: 07/24/24 Room / Location: [place] [address] [facility] Anesthesia Start: 1055 Anesthesia [...] July 24, 2024 TIME: 3:38 PM CSN: [id number] [facility] PRE-OPon [id number] PRE-OPHNO ID: [id number] Author: FLOR SNOW MD Service: ? Author Type: Physician Type: Anesthesia Preprocedure Evaluation Filed: 07/24/2024 09:16 Note Text: ANESTHESIOLOGY DAY OF SURGERY NOTE : 1950 Procedure Information Date/Time: 07/24/24 1051 Procedure: LAPAROSCOPIC RPR PARAESOPHAGEAL HERNIA W/O FUNDOPLASTY W/ MESH (Abdomen) Location: MAIN [facility] Surgeons: Xavier Boyd MD [...] July 24, 2024 TIME: 9:15 AM CSN: [id number] VA Medical Center OP NOTon 25-24-0163NSMWR OP NOTHNO ID: [id number] Author: YAN MOSER, ? Service: General Surgery Author Type: Physician Type: Brief Op Note Filed: 07/24/2024 14:16 Note Text: BRIEF OPERATIVE / PROCEDURE NOTE LOG ID: [id number] SURGERY/PROCEDURE DATE: 07/24/2024 INCISION/PROCEDURE START TIME: 11:37 AM INCISION CLOSE/PROCEDURE END TIME: 2:12 PM SURGEON(S)/PROCEDURALIST(S) AND MANAGER DATABASE(S): Surgeons and Role: * Xavier Boyd MD [...] 24, 2024 TIME: 2:15 PM PAGER/CONTACT #: [phone] Hospital metabolic 2000 panelon 71-28-0915Acdai gap [Moles/Vol]15 mmol/LNormal8-15 [facility] on above:Order Comment: Specimen Type: BLOOD SPECIMEN [facility]ing Facility[facility] Address: [address] [place], [place] [address]Performed By: #### 55959-3, HSTNT, , 2776-07 #### [facility] CLIA [id number] [address] [place] [address] [place] AMERICACalcium [Mass/Vol]9.3 mg/dL Normal8.5-10.2[facility] on above:Order Comment: Specimen Type: BLOOD SPECIMEN Ordering Facility: [facility] Address: [address] [place], [place] [address]Performed By: #### 09538-7, HSTNT, , 2776-07 #### [facility] CLIA [id number] [address] [place] [address] [place] AMERICAChloride [Moles/Vol]105 mmol/PBvxsmy23-929FmtfjbsgeCherrington Hospital on above:Order Comment: Specimen Type: BLOOD SPECIMEN Ordering Facility: [facility] Address: [address] [place], [place] [address]Performed By: #### 90946-5, HSTNT, , 2776-07 #### [facility] CLIA [id number] [address] [place] [address] [place] AMERICACO2 [Moles/Vol]21 mmol/LLow 22-30[facility] on above:Order Comment: Specimen Type: BLOOD SPECIMEN Ordering Facility: [facility] Address: [address] [place], [place] [address]Performed By: #### 64475-8, HSTNT, , 2776-07 #### [facility] CLIA [id number] [address] [place] [address] [place] AMERICACreatinine [Mass/Vol]0.83 mg/dLNormal0.58-0.96[facility] on above:Order Comment: Specimen Type: BLOOD SPECIMEN Ordering Facility: [facility] Address: [address] [place], [place] [address]Performed By: #### 16544-3, HSTNT, , 2776-07 #### [facility] CLIA [id number] [address] [place] [address] [place] AMERICACreatinine and Glomerular filtration rate.predicted panel (S/P/Bld)75 mL/min/1.73m???Normal>=60[facility] on above:Order Comment: Specimen Type: BLOOD SPECIMEN Ordering Facility: [facility] Address: [address] [place], [place] [address]Result Comment: Estimated Glomerular Filtration Rate (eGFR) is [...] not accurately reflect actual GFR.Performed By: #### 77869-8, HSTNT, , 2776-07 #### [facility] CLIA [id number] [address] [place] [address] [place] AMERICAGlucose [Mass/Vol]171 mg/dL Qmcb39-51BhrlrtjcwCherrington Hospital on above:Order Comment: Specimen Type: BLOOD SPECIMEN Ordering Facility: [facility] Address: [address] [place], [place] [address]Result Comment: The [place] [employer] (ADA) provides guidance for cutoff [...] Standards of Medical Care in Diabetes 2016, [place] [employer]. Diabetes Care. 2016.39(Suppl 1).Performed By: #### 63582-9, HSTNT, , 2776-07 #### [facility] CLIA [id number] [address] [place] [address] [place] AMERICAPotassium [Moles/Vol]4.0 mmol/LNormal3.7-5.1[facility] on above:Order Comment: Specimen Type: BLOOD SPECIMEN Ordering Facility: [facility] Address: [address] [place], [place] [address]Performed By: #### 62489-7, HSTNT, 2776-07 #### [facility] CLIA [id number] [address] [place] [address] [place] AMERICASodium [Moles/Vol]141 mmol/L Wainom561-841FnrxdzfkxCherrington Hospital on above:Order Comment: Specimen Type: BLOOD SPECIMEN Ordering Facility: [facility] Address: [address] [place], [place] [address]Performed By: #### 10582-5, HSTNT, , 2776-07 #### [facility] CLIA [id number] [address] [place] [address] [place] AMERICAUrea nitrogen [Mass/Vol]10 mg/dLNormal7-21[facility] ClevelandComment on above:Order Comment: Specimen Type: BLOOD SPECIMEN Ordering Facility: [facility] Address: [address] [place], [place] [address]Performed By: #### 09223-4, HSTNT, 74984-0, 2777-1 #### [facility] CLIA [id number] [address] [place] [address] [place] AMERICACB W Auto Differential panel (Bld)on 50-52-7378Babztjccp (Bld) [#/Vol]10*3/uLNormal<0.11[facility] on above:Order Comment: Specimen Type: BLOOD SPECIMEN Ordering Facility: [facility] Address: [address] [place], [place] [address]Performed By: #### 91583-9, 28070-3 #### [facility] CLIA [id number] [address] [place] [address] [place] AMERICABasophils/100 WBC (Bld)0.3 % NormalCherrington Hospital on above:Order Comment: Specimen Type: BLOOD SPECIMEN Ordering Facility: [facility] Address: [address] [place], [place] [address]Performed By: #### 84927-5, 13062-5 #### [facility] CLIA [id number] [address] [place] [address] [place] AMERICADifferential cell count method Nom (Bld)AutoNormalCSCCI Hospital [facility] on above:Order Comment: Specimen Type: BLOOD SPECIMEN Ordering Facility: [facility] Address: [address] [place], [place] [address]Performed By: #### 26427-3, 65610-3 #### [facility] CLIA [id number] [address] [place] [address] [place] AMERICAEosinophils (Bld) [#/Vol] 10*3/uLNormal<0.46[facility] on above:Order Comment: Specimen Type: BLOOD SPECIMEN Ordering Facility: [facility] Address: [address] [place], [place] [address]Performed By: #### 22430-8, 42907-8 #### [facility] CLIA [id number] [address] [place] [address] [place] AMERICAEosinophils/100 WBC (Bld)0.0 %NormalCherrington Hospital on above:Order Comment: Specimen Type: BLOOD SPECIMEN Ordering Facility: [facility] Address: [address] [place], [place] [address]Performed By: #### 87918-0, 71640-6 #### [facility] CLIA [id number] [address] [place] [address] [place] AMERICAErythrocyte distribution width (RBC) [Ratio]13.9 %Pmihet45.5-15.0[facility] on above:Order Comment: Specimen Type: BLOOD SPECIMEN Ordering Facility: [facility] Address: [address] [place], [place] [address]Performed By: #### 83120-1, 19665-2 #### [facility] CLIA [id number] [address] [place] [address] [place] AMERICAHematocrit (Bld) [Volume fraction]38.8 %Hkjshf11.0-46.0[facility] on above:Order Comment: Specimen Type: BLOOD SPECIMEN Ordering Facility: [facility] Address: [address] [place], [place] [address]Performed By: #### 94980-4, 39041-6 #### [facility] CLIA [id number] [address] [place] [address] [place] AMERICAHemoglobin (Bld) [Mass/Vol] 13.4 g/bAZurzzr49.5-15.5[facility] on above:Order Comment: Specimen Type: BLOOD SPECIMEN Ordering Facility: [facility] Address: [address] [place], [place] [address]Performed By: #### 65232-2, 91899-6 #### [facility] CLIA [id number] [address] [place] [address] [place] AMERICAImmature granulocytes (Bld) [#/Vol]10*3/uLNormal<0.10[facility] on above:Order Comment: Specimen Type: BLOOD SPECIMEN Ordering Facility: [facility] Address: [address] [place], [place] [address]Performed By: #### 79013-1, 20739-2 #### [facility] CLIA [id number] [address] [place] [address] [place] AMERICAImmature granulocytes/100 WBC (Bld)0.3 %NormalCherrington Hospital on above:Order Comment: Specimen Type: BLOOD SPECIMEN Ordering Facility: [facility] Address: [address] [place], [place] [address]Performed By: #### 81059-3, 50515-6 #### [facility] CLIA [id number] [address] [place] [address] [place] AMERICALymphocytes (Bld) [#/Vol] 0.48 10*3/uLLow1.00-4.00[facility] on above:Order Comment: Specimen Type: BLOOD SPECIMEN Ordering Facility: [facility] Address: [address] [place], [place] [address]Performed By: #### 77605-4, 34388-8 #### [facility] CLIA [id number] [address] [place] [address] [place] AMERICALymphocytes/100 WBC (Bld)6.7 %NormalCherrington Hospital on above:Order Comment: Specimen Type: BLOOD SPECIMEN Ordering Facility: [facility] Address: [address] [place], [place] [address]Performed By: #### 44549-0, 63828-9 #### [facility] CLIA [id number] [address] [place], [place] [address]H (RBC) [Entitic mass]32.5 cjDbftqj39.0-34.0[facility] on above:Order Comment: Specimen Type: BLOOD SPECIMEN Ordering Facility: [facility] Address: [address] [place], [place] [address]Performed By: #### 08693-6, 36290-3 #### [facility] CLIA [id number] [address] [place] [address] (RBC) [Mass/Vol]34.5 g/lASnwaki21.5-36.0[facility] on above:Order Comment: Specimen Type: BLOOD SPECIMEN Ordering Facility: [facility] Address: [address] [place], [place] [address]Performed By: #### 01388-6, 38002-8 #### [facility] CLIA [id number] [address] [place] [address] (RBC) [Entitic vol]94.2 tORpssuq44.0-100.0[facility] on above:Order Comment: Specimen Type: BLOOD SPECIMEN Ordering Facility: [facility] Address: [address] [place], [place] [address]Performed By: #### 36325-1, 49707-2 #### [facility] CLIA [id number] [address] [place], [place] [address]Monocytes (Bld) [#/Vol]0.23 10*3/uLNormal<0.87[facility] on above:Order Comment: Specimen Type: BLOOD SPECIMEN Ordering Facility: [facility] Address: [address] [place], [place] [address]Performed By: #### 05823-7, 41606-0 #### [facility] CLIA [id number] [address] [place] [address] [place] AMERICAMonocytes/100 WBC (Bld)3.2 % NormalCherrington Hospital on above:Order Comment: Specimen Type: BLOOD SPECIMEN Ordering Facility: [facility] Address: [address] [place], [place] [address]Performed By: #### 04790-2, 54136-9 #### [facility] CLIA [id number] [address] [place] [address] [place] AMERICANeutrophils (Bld) [#/Vol] 6.43 10*3/uLNormal1.45-7.50[facility] on above:Order Comment: Specimen Type: BLOOD SPECIMEN Ordering Facility: [facility] Address: [address] [place], [place] [address]Performed By: #### 32656-1, 42207-9 #### [facility] CLIA [id number] [address] [place] [address] [place] AMERICANeutrophils/100 WBC (Bld) 89.5 %NormalCherrington Hospital on above:Order Comment: Specimen Type: BLOOD SPECIMEN Ordering Facility: [facility] Address: [address] [place], [place] [address]Performed By: #### 42751-5, 89869-2 #### [facility] CLIA [id number] [address] [place] [address] [place] AMERICANucleated RBC (Bld) [#/Vol] 10*3/uLNormal<0.01[facility] on above:Order Comment: Specimen Type: BLOOD SPECIMEN Ordering Facility: [facility] Address: [address] [place], [place] [address]Performed By: #### 73112-9, 46617-8 #### [facility] CLIA [id number] [address] [place] [address] [place]ucleated RBC/100 WBC (Bld) [Ratio]0.0 /100 WBCNormalCSCCI Hospital [facility] on above:Order Comment: Specimen Type: BLOOD SPECIMEN Ordering Facility: [facility] Address: [address] [place], [place] [address]Performed By: #### 79339-6, 91531-2 #### [facility] CLIA [id number] [address] [place], [place] [id number] [place] AMERICAPlatelet mean volume (Bld) [Entitic vol]10.0 fLNormal9.0-12.7[facility] on above: Order Comment: Specimen Type: BLOOD SPECIMEN Ordering Facility: [facility] Address: [address] [place], [place] [address]Performed By: #### 32786-9, 09055-8 #### [facility] CLIA [id number] [address] [place] [address] [place] AMERICAPlatelets (Bld) [#/Vol]144 10*3/zICgt350-373CqwzxnthoCherrington Hospital on above:Order Comment: Specimen Type: BLOOD SPECIMEN Ordering Facility: [facility] Address: [address] [place], [place] [address]Performed By: #### 81320-5, 95749-5 #### [facility] CLIA [id number] [address] [place] [address] [place] OF AMERICARBC (Bld) [#/Vol]4.12 10*6/uLNormal3.90-5.20[facility] on above:Order Comment: Specimen Type: BLOOD SPECIMEN Ordering Facility: [facility] Address: [address] [place], [place] [address]Performed By: #### 84593-0, 85784-2 #### [facility] CLIA [id number] [address] [place] [address] [place] OF AMERICAWBC (Bld) [#/Vol]7.18 10*3/uLNormal3.70-11.00[facility] on above:Order Comment: Specimen Type: BLOOD SPECIMEN Ordering Facility: [facility] Address: [address] [place], [place] [address]Performed By: #### 56506-4, 35584-5 #### [facility] CLIA [id number] [address] [place] [address] [place] OF AMERICAHIGH SENSITIVITY TROPONIN T on 37-46-4900Gppkeegd T.cardiac High sensitivity method [Mass/Vol]8 ng/LNormal <12The Christ HospitalComment on above:Order Comment: Specimen Type: BLOOD SPECIMEN Ordering Facility: [facility] Address: [address] [place], [place] [address]Performed By: #### 59196-9, HSTNT, 62730-8, 2777-1 #### [facility] IA [id number] [address] [place] [address] [place] OF AMERICAMagnesium SerPl-mCncon 52-98-0637Psdzpyxbx [Mass/Vol]1.7 mg/dLNormal1.7-2.3CFirelands Regional [facility] Comment on above:Order Comment: Specimen Type: BLOOD SPECIMEN Ordering Facility: [facility] Address: [address] [place], [place] [address]Performed By: #### 62113-1, HSTNT, , 2776- #### [facility] IA [id number] [address] [place] [address] [place] OF AMERICAOPERATIVE NOon 07-24-2024 OPERATIVE NOHNO ID: [id number] Author: XAVIER BOYD MD Service: General Surgery Author Type: Physician Type: Operative Report Filed: 07/24/2024 14:31 Note Text: OPERATIVE/PROCEDURE REPORT LOG ID: [id number] SURGERY/PROCEDURE DATE: 07/24/2024 INCISION/PROCEDURE START TIME: 11:37 AM INCISION CLOSE/PROCEDURE END TIME: 2:12 PM SURGEON(S)/PROCEDURALIST(S) AND MANAGER DATABASE(S): Surgeons and Role: * Xavier Boyd MD [...] the left and right subcostal regions. An bricklayer's assistant 5 mm trocar was placed in [...] sutures to the left upper abdomen. The [place] drain and liver retractor were removed. The [...] required to assist with this case. The bricklayer's assistant performed retraction and assisted with exposure. PRE-OP/PRE-PROCEDURE DIAGNOSIS: Type III paraesophageal hernia, symptomatic POST-OP/POST-PROCEDURE DIAGNOSIS: Same as Preop ESTIMATED BLOOD LOSS: 30 mls SPECIMENS: None IMPLANTABLE DEVICES: NONE DRAINS: None COMPLICATIONS: None CLOSURE TECHNIQUE: Primary PARTICIPATION IN SURGERY/PROCEDURE: I/primary surgeon/proceduralist performed the procedure with assistance. SIGNATURE: Xavier Boyd MD PATIENT NAME: Shey Obrien DATE: July 24, 2024 TIME: 2:27 PMNormalThe Christ HospitalPhosphate SerPl-mCncon 07-24-2024 Phosphate [Mass/Vol]3.6 mg/dLNormal2.7-4.8CFirelands Regional Medical Center South CampusComment on above:Order Comment: Specimen Type: BLOOD SPECIMEN Ordering Facility: [facility] Address: [address] [place], [place] [address]Performed By: #### 11351-0, HSTNT, 27318-8, 2777-1 #### [facility] CLIA [id number] [address] [place] [address] [place] OF AMERICAXR CHEST 2V FRONTAL/LATon [...] soft tissues: Unremarkable. IMPRESSION: Large hiatal hernia. Structural Mill Supervisor: Ecelles Carson Transcribe Date/Time: Jul 24 2024 7:28A Dictated by : JARVIS HUGO MD This examination was interpreted and the report reviewed and electronically signed by: JARVIS HUGO MD on Jul 24 2024 7:30AM EST [id number]^AGFA_IDC^SI^ACNCCFRadiology, Radiologist, MD - 07/24/2024 * * *Final [...] soft tissues: Unremarkable. IMPRESSION: Large hiatal hernia. Structural Mill Supervisor: [facility]Act[facility] Transcribe Date/Time: Jul 24 2024 7:28A Dictated by : JARVIS HUGO MD This examination was interpreted and the report reviewed and electronically signed by: JARVIS HUGO MD on Jul 24 2024 7:30AM EST [id number]^AGFA_IDC^SI^ACN NOMS HealthcareXR CHEST 2V FRONTAL/LATOrdered By: Radiologist Radiology on 39-24-9278VNRV Healthcare Work Phone: cBC W Auto Differential panel (Bld)on 07-23-2024 Basophils (Bld) [#/Vol]0.04 10*3/uLNormal<0.11[facility] on above:Order Comment: Specimen Type: BLOOD SPECIMEN Ordering Facility: [facility] Address: [address] [place], [place] [address]Performed By: #### 59954-9, 19757-8 #### [facility] CLIA [id number] [address] [place] [address] [place] AMERICABasophils/100 WBC (Bld)0.8 % NormalCherrington Hospital on above:Order Comment: Specimen Type: BLOOD SPECIMEN Ordering Facility: [facility] Address: [address] [place], [place] [address]Performed By: #### 52853-9, 56380-1 #### [facility] CLIA [id number] [address] [place] [address] [place] OF AMERICADifferential cell count method Nom (Bld)AutoNormalCSCCI Hospital [facility] on above:Order Comment: Specimen Type: BLOOD SPECIMEN Ordering Facility: [facility] Address: [address] [place], [place] [address]Performed By: #### 27149-2, 51527-0 #### [facility] CLIA [id number] [address] [place] [address] [place] AMERICAEosinophils (Bld) [#/Vol] 0.18 10*3/uLNormal<0.46[facility] on above:Order Comment: Specimen Type: BLOOD SPECIMEN Ordering Facility: [facility] Address: [address] [place], [place] [address]Performed By: #### 63371-1, 48720-3 #### [facility] CLIA [id number] [address] [place] [address] [place] AMERICAEosinophils/100 WBC (Bld)3.7 %NormalCherrington Hospital on above:Order Comment: Specimen Type: BLOOD SPECIMEN Ordering Facility: [facility] Address: [address] [place], [place] [address]Performed By: #### 64121-9, 27493-3 #### [facility] CLIA [id number] [address] [place] [address] [place] AMERICAErythrocyte distribution width (RBC) [Ratio]13.9 %Uwftqf96.5-15.0[facility] on above:Order Comment: Specimen Type: BLOOD SPECIMEN Ordering Facility: [facility] Address: [address] [place], [place] [address]Performed By: #### 57648-9, 80268-3 #### [facility] CLIA [id number] [address] [place] [address] [place] AMERICAHematocrit (Bld) [Volume fraction]39.0 %Purmqs51.0-46.0[facility] on above:Order Comment: Specimen Type: BLOOD SPECIMEN Ordering Facility: [facility] Address: [address] [place], [place] [address]Performed By: #### 50228-5, 44552-5 #### [facility] CLIA [id number] [address] [place] [address] [place] AMERICAHemoglobin (Bld) [Mass/Vol] 13.4 g/bQPoqvgc17.5-15.5CS[facility] on above:Order Comment: Specimen Type: BLOOD SPECIMEN Ordering Facility: [facility] Address: [address] [place], [place] [address]Performed By: #### 29926-2, 92052-2 #### [facility] CLIA [id number] [address] [place] [address] [place] AMERICAImmature granulocytes (Bld) [#/Vol]10*3/uLNormal<0.10[facility] on above:Order Comment: Specimen Type: BLOOD SPECIMEN Ordering Facility: [facility] Address: [address] [place], [place] [address]Performed By: #### 19084-4, 47789-4 #### [facility] CLIA [id number] [address] [place] [address] [place] AMERICAImmature granulocytes/100 WBC (Bld)0.4 %NormalCherrington Hospital on above:Order Comment: Specimen Type: BLOOD SPECIMEN Ordering Facility: [facility] Address: [address] [place], [place] [address]Performed By: #### 08957-2, 58259-6 #### [facility] CLIA [id number] [address] [place] [address] [place] OF AMERICALymphocytes (Bld) [#/Vol] 2.00 10*3/uLNormal1.00-4.00[facility] on above:Order Comment: Specimen Type: BLOOD SPECIMEN Ordering Facility: [facility] Address: [address] [place], [place] [address]Performed By: #### 44548-1, 17661-4 #### [facility] CLIA [id number] [address] [place] [address] [place] AMERICALymphocytes/100 WBC (Bld) 41.3 %NormalCherrington Hospital on above:Order Comment: Specimen Type: BLOOD SPECIMEN Ordering Facility: [facility] Address: [address] [place], [place] [address]Performed By: #### 85084-0, 57176-2 #### [facility] CLIA [id number] [address] (RBC) [Entitic mass]32.5 gnQyxclf70.0-34.0[facility] on above:Order Comment: Specimen Type: BLOOD SPECIMEN Ordering Facility: [facility] Address: [address] [place], [place] [address]Performed By: #### 59835-8, 47656-9 #### [facility] CLIA [id number] [address] [place] [address] (RBC) [Mass/Vol]34.4 g/pNYbzoes92.5-36.0[facility] on above:Order Comment: Specimen Type: BLOOD SPECIMEN Ordering Facility: [facility] Address: [address] [place], [place] [address]Performed By: #### 27371-1, 99106-5 #### [facility] CLIA [id number] [address] [place] [address] (RBC) [Entitic vol]94.7 qEXcborh19.0-100.0[facility] on above:Order Comment: Specimen Type: BLOOD SPECIMEN Ordering Facility: [facility] Address: [address] [place], [place] [address]Performed By: #### 27940-7, 35810-1 #### [facility] CLIA [id number] [address] [place] [address] [place] AMERICAMonocytes (Bld) [#/Vol]0.30 10*3/uLNormal<0.87[facility] on above:Order Comment: Specimen Type: BLOOD SPECIMEN Ordering Facility: [facility] Address: [address] [place], [place] [address]Performed By: #### 74968-8, 65178-8 #### [facility] CLIA [id number] [address] [place] [address] OF AMERICAMonocytes/100 WBC (Bld)6.2 % NormalKeisterville Clinic ClevelandComment on above:Order Comment: Specimen Type: BLOOD SPECIMEN Ordering Facility: [facility] Address: [address] [place], [place] [address]Performed By: #### 43889-5, 26713-0 #### [facility] CLIA [id number] [address] [place] [address] [place] AMERICANeutrophils (Bld) [#/Vol] 2.30 10*3/uLNormal1.45-7.50[facility] on above:Order Comment: Specimen Type: BLOOD SPECIMEN Ordering Facility: [facility] Address: [address] [place], [place] [address]Performed By: #### 58397-8, 19347-9 #### [facility] CLIA [id number] [address] [place] [address] [place] AMERICANeutrophils/100 WBC (Bld) 47.6 %[facility] on above:Order Comment: Specimen Type: BLOOD SPECIMEN Ordering Facility: [facility] Address: [address] [place], [place] [address]Performed By: #### 48469-7, 45596-0 #### [facility] CLIA [id number] [address] [place] [address] [place] AMERICANucleated RBC (Bld) [#/Vol] 10*3/uLNormal<0.01[facility] on above:Order Comment: Specimen Type: BLOOD SPECIMEN Ordering Facility: [facility] Address: [address] [place], [place] [address]Performed By: #### 61906-9, 59211-0 #### [facility] CLIA [id number] [address] [place] [address] [place] AMERICANucleated RBC/100 WBC (Bld) [Ratio]0.0 /100 WBCNormalCSCCI Hospital [facility] on above:Order Comment: Specimen Type: BLOOD SPECIMEN Ordering Facility: [facility] Address: [address] [place], [place] [address]Performed By: #### 66600-8, 77959-5 #### [facility] CLIA [id number] [address] [place] [address] [place] AMERICAPlatelet mean volume (Bld) [Entitic vol]10.2 fLNormal9.0-12.7[facility] on above: Order Comment: Specimen Type: BLOOD SPECIMEN Ordering Facility: [facility] Address: [address] [place], [place] [address]Performed By: #### 67071-7, 34495-6 #### [facility] CLIA [id number] [address] [place] [address] [place] AMERICAPlatelets (Bld) [#/Vol]169 10*3/lDHhqegs750-134QxillpmskCherrington Hospital on above:Order Comment: Specimen Type: BLOOD SPECIMEN Ordering Facility: [facility] Address: [address] [place], [place] [address]Performed By: #### 21026-3, 64042-6 #### [facility] CLIA [id number] [address] [place] [address] [place] AMERICARBC (Bld) [#/Vol]4.12 10*6/uLNormal3.90-5.20[facility] on above:Order Comment: Specimen Type: BLOOD SPECIMEN Ordering Facility: [facility] Address: [address] [place], [place] [address]Performed By: #### 68572-3, 49939-8 #### [facility] CLIA [id number] [address] [place] [address] [place] AMERICAWBC (Bld) [#/Vol]4.84 10*3/uLNormal3.70-11.00[facility] on above:Order Comment: Specimen Type: BLOOD SPECIMEN Ordering Facility: [facility] Address: [address] [id number] By: #### 32027-1, 00445-4 #### [facility] CLIA [id number] [address] [facility] DESK X82ZPBESPNPFAUSTIN VILLE [id number] [facility]ITALCC CBC W AUTO DIFF BLDon 69-91-8816Ljyeyzpxl/100 WBC (Bld)0.8 %[facility] BASOPHILS # BLD AUTO 0.04NIVanderbilt [facility]plant Center DIFFERENTIAL METHOD BLDAutoNOMS Our Lady [facility] Mercy HospitalF EOSINOPHIL # BLD AUTO0.18NIVanderbilt Transplant Center LYMPHOCYTES # BLD OZLS6FWOXRay County Memorial HospitalF MONOCYTES # BLD AUTO0.3NIMoccasin Bend Mental Health InstituteF NEUTROPHILS # BLD AUTO2.3NORay County Memorial HospitalF NRBC # BLD AUTO<0.01NIVander[facility]plant Center NRBC/100 WBC BLD-RTO0/100 WBCUniversity Health Lakewood Medical Center PLATELET # BLD HAOQ086HCFURay County Memorial HospitalF PMV BLD AUTO10.2 fL9.0 - 12.7 fLUniversity Health Lakewood Medical Center WBC # BLD AUTO4.84NOIN HealthcareEosinophils/100 WBC (Bld)3.7 %[facility] HealthcareErythrocyte distribution width (RBC) [Ratio]13.9 %11.5 - 15.0 %[facility] HealthcareHematocrit (Bld) [Volume fraction]39 %36.0 - 46.0 %[facility] HealthcareHemoglobin (Bld) [Mass/Vol]13.4 g/dL 11.5 - 15.5 g/dLPerry County Memorial Hospital GRANULOCYTES # BLD AUTO<0.03NIPhysicians Regional Medical Center GRANULOCYTES/LEUK NFR BLD AUTO0.4 %NOM HealthcareLymphocytes/100 WBC (Bld)41.3 %[facility] HospitalMCH (RBC) [Entitic mass]32.5 pg26.0 - 34.0 pgNOSaint Luke's East HospitalMCHC (RBC) [Mass/Vol]34.4 g/dL30.5 - 36.0 g/dLCedar County Memorial HospitalMCV (RBC) [Entitic vol]94.7 fL80.0 - 100.0 fLNOSaint Luke's East HospitalMonocytes/100 WBC (Bld)6.2 % NOMS HealthcareNeutrophils/100 WBC (Bld)47.6 %NOMS HealthcareRBC (Bld) [#/Vol] 4.12 10*6/uL3.90 - 5.20 m/uLNOMS HealthcareSpecimen Type: BLOOD SPECIMEN Order[facility] Facility: [facility] Address: [address] [place] [address] Original Ordering Provider: KATARZYNA DASILVAReynolds County General Memorial HospitalF CONFIRM BLOOD TYPEon 73-81-7263ZBFGTEZW HealthcareSpecimen Type: BLOOD SPECIMEN Ordering Facility: [facility] Address: [address] [place] [address] [facility] CLIA [id number] [address] [place] [address] TYPE AND SCREEN,30 DAYon 34-71-0402SNKWNWNP HealthcareRh Nom (Bld)PositiveNOIN Healthcare Specimen Type: BLOOD SPECIMEN Ordering Facility: [facility] Address: [address] [place] [address] [facility] CLIA [id number] [address] [place] [address] CONFIRM BLOOD TYPEon 23-78-4707GOPATvwkxnIeapwuspiCommunity Regional Medical Center on above:Order Comment: Specimen Type: BLOOD SPECIMEN Ordering Facility: [facility] Address: [address] [place], [place] [address]Performed By: #### 00152-8, HSTNT, , 2776- #### [facility] CLIA [id number] [address] [place], [place] [address]Rh Nom (Bld)PositiveNormal [facility] on above:Order Comment: Specimen Type: BLOOD SPECIMEN Ordering Facility: [facility] Address: [address] [place], [place] [address]Performed By: #### 73097-2, HSTNT, , 2776- #### [facility] CLIA [id number] [address] [place] [address] OF AMERICAABO group Nom (Bld)B Berger Hospitalprehensive metabolic 2000 panelon 64-67-7124Ngaazds [Mass/Vol]4.2 g/dLNormal3.9-4.9[facility] on above:Order Comment: Specimen Type: BLOOD SPECIMEN Ordering Facility: [facility] Address: [address] [place], [place] [address]Performed By: #### 67376-4, 52732-5 #### [facility] CLIA [id number] [address] [place] [address] [place] AMERICAALP [Catalytic activity/Vol] 111 U/EDyjtju40-106XtqboipteCherrington Hospital on above:Order Comment: Specimen Type: BLOOD SPECIMEN Ordering Facility: [facility] Address: [address] [place], [place] [address]Performed By: #### 84481-0, 46602-9 #### [facility] CLIA [id number] [address] [place] [address] [place] AMERICAALT [Catalytic activity/Vol] 26 U/LNormal7-38[facility] on above:Order Comment: Specimen Type: BLOOD SPECIMEN Ordering Facility: [facility] Address: [address] [place], [place] [address]Performed By: #### 96887-3, 50998-4 #### [facility] CLIA [id number] [address] [place] [address] [place] AMERICAAnion gap [Moles/Vol]10 mmol/LNormal8-15[facility] on above:Order Comment: Specimen Type: BLOOD SPECIMEN Ordering Facility: [facility] Address: [address] [place], [place] [address]Performed By: #### 04888-4, 39121-6 #### [facility] CLIA [id number] [address] [place] [address] [place] AMERICAAST [Catalytic activity/Vol] 28 U/QAjkiww87-29TveeaqxrbCherrington Hospital on above:Order Comment: Specimen Type: BLOOD SPECIMEN Ordering Facility[facility] Address: [address] [place], [place] [address]Performed By: #### 39027-0, 41883-9 #### [facility] CLIA [id number] [address] [place] [address] [place] AMERICABilirubin [Mass/Vol]0.5 mg/dLNormal0.2-1.3[facility] on above:Order Comment: Specimen Type: BLOOD SPECIMEN Ordering Facility: [facility] Address: [address] [place], [place] [address]Performed By: #### 80645-2, 60459-0 #### [facility] CLIA [id number] [address] [place] [address] [place] AMERICACalcium [Mass/Vol]9.4 mg/dL Normal8.5-10.2[facility] on above:Order Comment: Specimen Type: BLOOD SPECIMEN Ordering Facility: [facility] Address: [address] [place], [place] [address]Performed By: #### 14360-0, 99964-3 #### [facility] CLIA [id number] [address] [place] [address] [place] AMERICAChloride [Moles/Vol]108 mmol/MOlfl81-644RorbtdmcsCherrington Hospital on above:Order Comment: Specimen Type: BLOOD SPECIMEN Ordering Facility: [facility] Address: [address] [place], [place] [address]Performed By: #### 33648-8, 28916-5 #### [facility] CLIA [id number] [address] [place] [address] [place] AMERICACO2 [Moles/Vol]23 mmol/L Tcqsnb56-78MjkdgushhCherrington Hospital on above:Order Comment: Specimen Type: BLOOD SPECIMEN Ordering Facility: [facility] Address: [address] [place], [place] [address]Performed By: #### 64080-1, 77107-8 #### [facility] CLIA [id number] [address] [place] [address] [place] AMERICACreatinine [Mass/Vol]0.99 mg/dLHigh0.58-0.96[facility] on above:Order Comment: Specimen Type: BLOOD SPECIMEN Ordering Facility: [facility] Address: [address] [place], [place] [address]Performed By: #### 81365-6, 73163-7 #### [facility] IA [id number] [address] [place] [address] [place] AMERICACreatinine and Glomerular filtration rate.predicted panel (S/P/Bld)61 mL/min/1.73m???Normal>=60[facility] on above:Order Comment: Specimen Type: BLOOD SPECIMEN Ordering [facility]: [facility] Address: [address] [place], [place] [address]Result Comment: Estimated Glomerular Filtration Rate (eGFR) is [...] not accurately reflect actual GFR.Performed By: #### 78898-6, 89053-0 #### [facility] CLIA [id number] [address] [place] [address] [place] AMERICAGlucose [Mass/Vol]155 mg/dL Qzap46-22SiqywecjyCherrington Hospital on above:Order Comment: Specimen Type: BLOOD SPECIMEN Ordering Facility: [facility] Address: [address] [place], [place] [address]Result Comment: The [place] [employer] (ADA) provides guidance for cutoff [...] Standards of Medical Care in Diabetes 2016, [place] [employer]. Diabetes Care. 2016.39(Suppl 1).Performed By: #### 38538-6, 74237-0 #### [facility] CLIA [id number] [address] [place] [address] [place] AMERICAPotassium [Moles/Vol]4.3 mmol/LNormal3.7-5.1[facility] on above:Order Comment: Specimen Type: BLOOD SPECIMEN Ordering Facility: [facility] Address: [address] [place], [place] [address]Performed By: #### 89435-8, 90276-1 #### [facility] CLIA [id number] [address] [place] [address] [place] AMERICAProtein [Mass/Vol]6.9 g/dL Normal6.3-8.0[facility] on above:Order Comment: Specimen Type: BLOOD SPECIMEN Ordering Facility: [facility] Address: [address] [place], [place] [address]Performed By: #### 06637-5, 15341-3 #### [facility] CLIA [id number] [address] [place] [address] [place] AMERICASodium [Moles/Vol]141 mmol/L Ftfwuo938-472HzfwcxmlyCherrington Hospital on above:Order Comment: Specimen Type: BLOOD SPECIMEN Ordering Facility: [facility] Address: [address] [place], [place] [address]Performed By: #### 31105-0, 51951-1 #### [facility] CLIA [id number] [address] [place] [address] AMERICAUrea nitrogen [Mass/Vol]13 mg/dLNormal7-21The [facility] HospitalComselect specialty hospital on above:Order Comment: Specimen Type: BLOOD SPECIMEN Ordering Facility[facility] Address: [address] [place], [place] [address]Performed By: #### 33945-4, 30350-9 #### [facility] CLIA [id number] [address] [place] [address] OF [facility]LEY HOSPITALECG COMPLETEon 58-80-7710SDZ COMPLETEVentricular Rate : 66 BPM Atrial Rate : 66 BPM P-R Interval : 158 ms QRS Duration : 78 ms Q-T Interval : 404 ms QTC Calculation(Bazett) : 423 ms Calculated P Milford : 32 degrees Calculated R Mil[place] : 14 degrees Calculated T Milford : 54 degrees NORMAL SINUS RHYTHM NORMAL ECG Confirmed by MD MCCLENDON HEBA ([id number]) on 07/29/2024 12:16:17 PM NAME : SHEY OBRIEN PID : [id number] : 1950 Gender : Female Race : ORD : [id number] Procedure Date : Jul 23 2024 12:08:10 Edit Date : Jul 29 2024 12:16:18 Diagnosis: NORMAL SINUS RHYTHM NORMAL ECG Confirmed by MD MCCLENDON HEBA ([id number]) on 07/29/2024 12:16:17 PM Test Reason : Location : 119 : A17 A17 Overread By : MD MCCLENDON HEBA Edited By : MD MCCLENDON HEBA Referred By : XAVIER BOYD Acquired by : Abel HAFirelands Regional Medical Center South CampusHISTORY PHYSICALon [id number] PHYSICALHNO ID: [id number] Author: JAMIL DELACRUZ PA-C Service: ? Author Type: Physician Recreation Engineer Type: H&P Filed: 07/23/2024 14:03 Note Text: [...] angina, anticoagulation therap (more content not included)... NormalTr[facility] Centertory - Blood bankon [id number] Nom (Bld) PositiveOhiohealth Grady Memorial HospitalNo Panel Informationon [id number] ClinicPT panel Coag (PPP)on [id number] Coag (PPP) [Relative time]1.1 {INR}Normal 0.9-1.3CSCCI [facility] on above:Order Comment: Specimen Type: BLOOD SPECIMEN Ordering Facility: [facility] Address: [address] [place], [place] [address]Result Comment: Vitamin K Antagonist (VKA) Therapeutic Range: INR 2 to 3 (Target INR of 2.5) Note: For patients treated with VKA drugs, such as warfarin, the [employer] 2012 Guideline recommends [...] Chest 2012, 141:7S-47S Keisha RA, et al. [facility] 2017, 70: 252-289Performed By: #### [id number], 62337-9 #### [facility] CLIA [id number] [address] [place], [place] [address]K [address] OF [facility] HOSPITALPT Coag (PPP) [Time]11.4 s Normal9.7-13.0[facility] on above:Order Comment: Specimen Type: BLOOD SPECIMEN Ordering Facility: [facility] Address: [address] [place], [place] [address]Performed By: #### 66307-4, 93942-7 #### [facility] CLIA [id number] [address] [place] [address] [place] STATES OF AMERICATYPE AND SCREEN,30 DAYon 10-62-2320RUPUYmfkznOobnusbyiCherrington Hospital on above:Order Comment: Specimen Type: BLOOD SPECIMEN Ordering Facility: [facility] Address: [address] [place], [place] [address]Performed By: #### 54907-9, HSTNT, , 2776- #### [facility] CLIA [id number] [address] [place], [place] [address] [place] OF AMERICARh Nom (Bld)PositiveNormal [facility] on above:Order Comment: Specimen Type: BLOOD SPECIMEN Ordering Facility: [facility] Address: [address] [place], [place] [address]Performed By: #### 27633-5, HSTNT, , 2776- #### [facility] [place] [id number] [address] [place] [address] STATES OF AMERICAXR CHEST 2V FRONTAL/LATon 42-08-8395VZ CHEST 2V FRONTAL/LAT* * *Final Report* * [...] soft tissues: Unremarkable. IMPRESSION: Large hiatal hernia. Structural Mill Supervisor: KODY Transcribe Date/Time: Jul 24 2024 7:28A Dictated by : JARVIS HUGO MD This examination was interpreted and the report reviewed and electronically signed by: JARVIS HUGO MD on Jul 24 2024 7:30AM EST [id number]_IDCSIACNNormalLouis Stokes Cleveland VA Medical Centeriology Study observation (narrative)NOMS HealthcareaPTT PPPon 78-32-0740qFTD Coag (PPP) [Time]25.5 hDgiqvv91.0-32.4CSCCI [facility] on above:Order Comment: Specimen Type: BLOOD SPECIMEN Ordering Facility: [facility] Address: [address] [place], [place] [address]Performed By: #### 65466-0, 71234-5 #### [facility] CLIA [id number] [address] [place] [address] OF [facility] HOSPITALCNOVon 01-30-3193UMSUEggwnm Visit (GENSERGIO) SHEY OBRIEN ([id number]) 1950 F Date Time Provider Department 04/29/24 [...] Yan Moser 04/29/2024 12:10 PM Signed [facility] Abdominal Core Health - HISTORY AND [...] Consents obtained Yan Moser MD General [facility], Xavier Mayfield MD 04/29/2024 12:10 PM Signed [...] the patient and discussed (more content not included)...[facility] LUM[facility] WO Jonah 04-22-[address] [address] Magnetic Resonance Report Signed Patient: SHEY OBRIEN MR#: [id number] : 1950 Acct:[id number] Age/Sex: 73 / F ADM Date: 04/22/24 Loc: MRI Attending Dr: Dimas Arguello M.D. Ordering Physician: Dimas Arguello M.D. Date of Service: 04/22/24 Procedure(s): MR lumbar spine wo con Accession Number(s): [id number] cc: Dimas Arguello M.D.; Latrell Jack M.D. [place] [address] Patient Name: SHEY OBRIEN MRN: [facility]:[id number] date: 1950 Sex: F Assigned Patient Location: MRI Current Patient Location: PM Accession/Order Number: [id number] Exam Date: 04/22/2024 07:45 Report Date: 04/22/2024 [...] M.D. Signed By: 04/22/241399 DD/ 1357 TD/TT: Structural Mill Supervisor:TBHRadiology, Radiologist, MD - 04/22/2024 [place] [address] Magnetic Resonance Report Signed Patient: SHEY OBRIEN MR#: [id number] : 1950 Acct:[id number] Age/Sex: 73 / F ADM Date: 04/22/24 Loc: MRI Attending Dr: Dimas Arguello M.D. Ordering Physician: Dimas Arguello M.D. Date of Service: 04/22/24 Procedure(s): MR lumbar spine wo con Accession Number(s): [id number] cc: Dimas Arguello M.D.; Latrell Jack M.D. The [place] [id number] Patient Name: SHEY OBRIEN MRN: [id number] date: 1950 Sex: F Assigned Patient Location: MRI Current Patient Location: Accession/Order Number: [id number] Exam Date: 04/22/2024 07:45 Report Date: 04/22/2024 [...] Signed By: 04/22/24 1400 DD/ 135 TD/TT: Structural Mill Supervisor: MARIANNE HealthcareRadiology Study observation (narrative)[facility] LUMBAR SPINE WO CONOrdered By: Radiologist Radiology on 66-87-8216ZRKR Healthcare Work Phone: XR FOOT RT MIN 3Von 37-57-9866[place] [address] XRay Report Signed Patient: SHEY OBRIEN MR#: [id number] : 1950 Acct:[id number] Age/Sex: 73 / F ADM Date: 04/09/24 Loc: EC Attending Dr: Marnie Pemberton D.P.M. Ordering Physician: Marnie Pemberton D.P.M. Date of Service: 04/09/24 Procedure(s): XR foot RT min 3V Accession Number(s): [id number] cc: Marnie Pemberton D.P.M.; Latrell Jack M.D. [address] [address] Patient Name: SHEY OBRIEN MRN: [id number] date: 1950 Sex: F Assigned Patient Location: Current Patient Location: Accession/Order Number: [id number] Exam Date: 04/09/2024 09:34 Report Date: 04/10/2024 [...] Negative. XR/XR foot RT min 3V IMPRESSION: Hwmt-ua-nfuakzcg osteoarthritis Electronically authenticated by: WILLARD ANAND Date: 04/10/2024 07:25 Dictated By: Willard Anand M.D. Signed By: 04/10/24726 DD/ 4 TD/TT: Structural Mill Supervisor:LALITAHRadiology, Radiologist, - 04/10/2024 [place] [address] XRay Report Signed Patient: SHEY OBREIN MR#: [id number] : 1950 Acct:[id number] Age/Sex: 73 / F ADM Date: 04/09/24 Loc: EC Attending Dr: Marnie Pemberton D.P.M. Ordering Physician: Marnie Pemberton D.P.M. Date of Service: 04/09/24 Procedure(s): XR foot RT min 3V Accession Number(s): [id number] cc: Marnie Pemberton D.P.M.; Latrell Jack M.D. [place] [id number] Patient Name: SHEY OBRIEN MRN: [id number] date: 1950 Sex: F Assigned Patient Location: Current Patient Location: Accession/Order Number: [id number] Exam Date: 04/09/2024 09:34 Report Date: 04/10/2024 [...] Negative. XR/XR foot RT min 3V IMPRESSION: Ajpl-wt-fhifxzep osteoarthritis Electronically authenticated by: WILLARD ANAND Date: 04/10/2024 07:25 Dictated By: Willard Anand M.D. Signed By: 04/10/24726 DD/ 4 TD/TT: Structural Mill Supervisor: NOMS HealthcareRadiology Study observation (narrative)[facility] HealthcareXR FOOT RT MIN 3VOrdered By: Radiologist Radiology on 27-13-0469JOLP Healthcare Work Phone: Surgical Pathology Reporton 05-46-7002Yzuipqxp [place] [address]- Surgical Pathology Report Collected Date/Time: 03/20/2024 12:52 [...] is entirely submitted in one cassette. (DC) DC:[facility] Microscopic Description Microscopic examination performed unless gross only specified. The use of one or more reagents in the above tests is regulated as an analyte specific reagent (ASR). The test or tests are ordered following initial H&E microscopic examination. The performance characteristics were determined by the Laboratory of [facility]. They have not been cleared or approved by the US Food and Drug Administration. The FDA has determined that such clearance or approval is not necessary. These tests are used for clinical purposes. They should not be regarded as investigational or for research. Appropriate positive and negative controls are performed and are acceptable. [facility] Medical CenterComment on above:Performed By: #### [id number] #### [facility]on [facility] Laboratory [address] [place], [place] [address]VR Esophaguson 88-23-2381OM EsophagusExam Date/Time: 03/26/2024 10:39 EDT Reason for [...] Ka,r in mGy = 15.80 DAP = 464.17[facility] CenterMain OR Intraoperative Recordon 74-62-9334Tlhu OR Intraoperative RecordMain OR Intraoperative Record IntraOp Document Type FT Summary Primary Physician: Dafne Spears MD Finalized Date/Time: 03/22/24 14:46:15 Pt. Name: SHEY OBRIEN /Sex: 1950 Female Med Rec #: [id number] Physician: Dafne Spears MD Financial #: [id number] Pt. Type: O Room/Bed: / Admit/Disch: 03/20/24 [...] 3 Case Attendee Mariella JOHNSON, Catalina Ivory SNAKE CHARMER, Dafne Ferguson MD Role Performed MARINE PHOTOGRAPHER Scrub - Primary Surgeon - Primary Time In 03/20/24 12:44:00 03/20/24 12:44:00 03/20/24 12:44:00 Time Out 03/20/24 12:56:00 03/20/24 12:56:00 03/20/24 12:56:00 Procedure EGD(.) EGD(.) EGD(.) Comments Dr. Spears supervising procedure. Last Modified By: Mynor FORBES, Essence Shirley RN, RN, Kara N 03/22/24 14:45:45 03/20/24 12:56:36 03/20/24 12:56:36 Entry 4 Case Attendee Essence Lopez RN Role Performed Top Collar Maker - Primary Time In 03/20/24 12:44:00 Time [...] and tissue Entry 1 Skin Integrity Intact, Mondamin, Warm, & Skin Abnormality No Dry Outcomes [...] Position Extended Positioning (more content not included)...Normal [facility] HospitalDischarge Instructionson 50-71-7111Nerjnhmap InstructionsDischarge Instructions SHEY OBRIEN :1950 Visit Date:03/20/2024 [...] mg Tab) fluticasone nasal (Flonase 0.05 mg/inh [place]) losartan (losartan 25 mg Tab) multivitamin with [...] Follow Up with Yovanny OLIVO, SENAIT Sifuentes, [facility] When: Comments: Call for any [...] Unchanged fluticasone nasal (Flonase 0.05 mg/ inh [place]) 2 Sprays Nasal Inhalation Every day Unchanged [...] (more content not included)...NormalFisher [facility] Orthopaedic InstituteComment on above:Result Comment: Electronically Signed By: Kassy Barker\Date and Time Signed: 03/20/24 13:08 EDTInpatient Patient Summaryon 73-39-1799Mamalspff Patient SummaryInpatient Patient Summary [place] [address] [facility] Clinical Discharge Instructions PERSON INFORMATION Name: SHEY OBRIEN [facility]#:[id number] PHYSICIANS Admitting Physician: Yovanny OLIVO, Dafne Torres [...] (at bedtime). fluticasone nasal (Flonase 0.05 mg/inh [place]) 2 Sprays Nasal Inhalation every day. losartan [...] day (at bedtime) as needed for sleep. Comment:[facility] CenterMain OR PACU I Recordon 29-63-4039Qwrf OR PACU I RecordMain OR PACU I Record PACU Phase I Document Type FT Summary Primary Physician: Dafne Spears MD Finalized Date/Time: 03/20/24 13:37:02 Pt. Name: SHEY OBRIEN Tamie/Sex: 1950 Female Med Rec #: [id number] Physician: Dafne Spears MD Financial #: [id number] Pt. Type: O Room/Bed: / Admit/Disch: 03/20/24 [...] 03/20/24 13:37NoSCCI Hospital LimaMain OR Preoperative Recordon 28-78-5023Ehul OR Preoperative RecordMain OR Preoperative Record Holding Area Document Type FT Summary Primary Physician: Dafne Spears MD Finalized Date/Time: 03/20/24 11:17:32 Pt. Name: KARYNSHEY/Sex: 1950 Female Med Rec #: [id number] Physician: Dafne Spears MD Financial #: [id number] Pt. Type: O Room/Bed: / Admit/Disch: 03/20/24 [...] 03/20/24 11:17NoSCCI Hospital LimaOutpatient Surgery Discharge Instructionon 53-03-7213Kwyetkumue Surgery Discharge InstructionOutpatient Surgery Discharge Instruction [place] [address] Patient Discharge Instructions PERSON INFORMATION Name: SHEY [...] to serve you. Thank you for choosing [facility] HERE ARE THE MEDICATION CHANGES THAT [...] (at bedtime). fluticasone nasal (Flonase 0.05 mg/inh [place]) 2 Sprays Nasal Inhalation every day. losartan [...] for sleep. PATIENT EDUCATION INFORMATION Instructions: Medication Leaflets:[facility] CenterProceduralon 03-20-2024 ProceduralProcedural Patient: SHEY OBRIEN Age: 73 years Sex: Female : 1950 Associated Diagnoses: None Author: Ganga OLIVO, Daquan Olea Postoperative Information Postoperative disposition: Postoperative disposition: To PACU. Optimetrix number: Optimetrix number [id number]. Anesthetic utilized: General. Health Status Allergies: Allergic [...] Discharge when meets criteria ( To home ).[facility] Medical CenterProceduralProcedural Patient: SHEY OBRIEN Age: 73 years Sex: [...] 1 tab, Oral, Daily Flonase 0.05 mg/inh [place]: 2 spray(s), Nasal, Daily, Refill(s) 0, Dry [...] a day (at bedtime) Flonase 0.05 mg/inh [place] 2 spray(s), Nasal, Daily losartan 25 mg [...] All Problems BMI 39.0-39.9,adult / SNOMED CT 864877960 / Confirmed Chronic obstructive pulmonary disease / SNOMED CT 46320372 / Confirmed Dyslipidemia / SNOMED CT 0695981139 / Confirmed Dysphagia / SNOMED CT 72630456 / Confirmed GERD (gastroesophageal reflux disease) / SNOMED CT 580037622 / Confirmed Hiatal hernia / SNOMED CT 215911274 / Confirmed HTN (hypertension) / SNOMED CT 6256416528 / Confirmed Insomnia / SNOMED CT 475955328 / Confirmed Lower extremity edema / SNOMED CT 782006902 / Confirmed Morbid obesity / SNOMED CT 886035980 / Confirmed EDWIN (obstructive sleep apnea) / SNOMED CT 528312352 / Confirmed Screening for malignant neoplasm of colon / SNOMED CT 316505931 / Confirmed Seasonal allergic rhinitis / SNOMED CT 034059827 / Confirmed TIA (transient ischemic attack) / SNOMED CT 400598255 / Confirmed Resolved: At risk for falls / SNOMED CT 574137703 Problem added when Risk for Falls Careplan was initiated. Resolved due to patient discharge. Resolved: Hernia / SNOMED CT 947504704 Resolved: Potential for deficient knowledge of cerebrovascular accident (CVA) / IMO 26726599 problem added based on Stroke Powerplan ordered. Resolved due to patient discharge. Resolved: Sleep apnea / SNOMED CT 655080794, Active Problems (14) BMI 39.0-39.9,adult Chronic obstructive pulmonary disease Dyslipidemia Dysphagia GERD (gastroesophageal reflux disease) Hiatal hernia HTN (hypertension) Insomnia Lower extremity edema Morbid obesity EDWIN (obstructive sleep apnea) Screening for malignant neoplasm of colon Seasonal allergic rhinitis TIA (transient ischemic (more content not included)...[facility] Medical CenterMR HEAD/BRAIN WO CONon 95-86-1545[place]mf[place] [address] Magnetic Resonance Report Signed Patient: SHEY OBRIEN MR#: [id number] : 1950 Acct:[id number] Age/Sex: 73 / F ADM Date: 03/15/24 Loc: MRI Attending Dr: Diomedes Fitzgerald D.O. Ordering Physician: Diomedes Fitzgerald D.O. Date of Service: 03/15/24 Procedure(s): MR head/brain wo con Accession Number(s): [id number] cc: Diomedes Fitzgerald D.O.; Latrell Jack M.D. The [place] [id number] Patient Name: SHEY OBRIEN MRN: [id number] date: 1950 Sex: F Assigned Patient Location: MRI Current Patient Location: MRI Accession/Order Number: [id number] Exam Date: 03/15/2024 09:50 Report Date: 03/15/2024 [...] Signed By: 03/15/24 1215 DD/ 1212 TD/TT: Structural Mill Supervisor:LALITAHRadiology, Radiologist, MD - 03/15/2024 [place] [address] Magnetic Resonance Report Signed Patient: SHEY OBRIEN MR#: [id number] : 1950 Acct:[id number] Age/Sex: 73 / F ADM Date: 03/15/24 Loc: MRI Attending Dr: Diomedes Fitzgerald D.O. Ordering Physician: Diomedes Fitzgerald D.O. Date of Service: 03/15/24 Procedure(s): MR head/brain wo con Accession Number(s): [id number] cc: Diomedes Fitzgerald D.O.; Latrell Jack M.D. [place] [address] Patient Name: SHEY OBRIEN MRN: [facility]:[id number] date: 1950 Sex: F Assigned Patient Location: MRI Current Patient Location: MRI Accession/Order Number: [id number] Exam Date: 03/15/2024 09:50 Report Date: 03/15/2024 [...] and involutional changes Electronically authenticated by: ARNOLD VARGSA Date: 03/15/2024 12:12 Dictated By: ARNOLD VARGAS M.D. Signed By: 03/15/24 1215 DD/ 1212 TD/TT: Structural Mill Supervisor: MARIANNE HealthcareRadiology Study observation (narrative)[facility] HEAD/BRAIN WO CONOrdered By: Radiologist Radiology on 38-54-1342ZUMH [employer] Work Phone: aLL FOLIC ACIDon 78-27-9382TUBQJP94.60 ng/mL8.60 - 58.90 ng/mLNOMS HealthcareALL THYROID STIM HORMONEon 32-58-4049ZCY Qn2.782 m[IU]/LNOMS HealthcareNo Panel Informationon 90-87-7071HGYLLSGCMSMMR Healthcare Ambulatory Visit Summaryon 04-44-4588Mevsbzzjvj Visit SummaryAmbulatory Visit Summary SHEY OBRIEN :1950 [...] mg Tab) fluticasone nasal (Flonase 0.05 mg/inh [place]) losartan (losartan 25 mg Tab) multivitamin with [...] Unchanged fluticasone nasal (Flonase 0.05 mg/ inh [place]) 2 Sprays Nasal Inhalation Every day Contact [...] you for choosing us for your care. [facility] CenterGastroenterology Office/Clinic Noteon 09-48-5002Xwvvpgwtchwitdma Office/Clinic NoteGastroenterology Office/Clinic Note Chief Complaint dysphagia [...] or gangrene) reports she had esophagram in [place] no egd in the past declined [...] a day (at bedtime) Flonase 0.05 mg/inh [place], 2 spray(s), Nasal, Daily losartan 25 mg [...] virus vaccine, inactivated 05/03/2022 Recorded SARS-CoV-2 (COVID-19) mRNAMUL.ORD![id number] 05/03/2022 Recorded influenza virus vaccine, inactivated 04/12/2021 [...] 05/10/2016 Recorded influenza virus vaccine, inactivated 04/16/2015 RecordedTrinity Health System Twin City Medical CenterComment on above:Result Comment: Electronically Signed By: Yovanny OLIVO, Dafne Torres\.br\Date and Time Signed: 02/26/24 09:38 EDTMM TOMOSYNTHESIS SCREENING BIon 40-99-2706Ywo[place] [address] Mammography Report Signed Patient: SHEY OBRIEN MR#: [id number] : 1950 Acct:[id number] Age/Sex: 73 / F ADM Date: 11/28/23 Loc: MAMMO Attending Dr: Latrell Jack M.D. Ordering Physician: Latrell Jack M.D. Results: Date of Service: 11/28/23 Follow Up: Procedure(s): MM tomosynthesis screening BI Accession Number(s): [id number] cc: Latrell Jack M.D. Patient Name: SHEY OBRIEN MR#: [id number] : 1950 Exam Date: 11/28/2023 Ordering Doctor: [...] cancer at age 46. LOCATION: [facility] BREAST COMPOSITION: The breasts [...] Signed By: 11/28/23 1516 DD/ 1515 TD/TT: Structural Mill Supervisor:TBHRadiology, Radiologist, - 11/28/2023 [place] [address] Mammography Report Signed Patient: SHEY OBRIEN MR#: [id number] : 1950 Acct:[id number] Age/Sex: 73 / F ADM Date: 11/28/23 Loc: MAMMO Attending Dr: Latrell Jack M.D. Ordering Physician: Latrell Jack M.D. Results: Date of Service: 11/28/23 Follow Up: Procedure(s): MM tomosynthesis screening BI Accession Number(s): [id number] cc: Latrell Jack M.D. Patient Name: SHEY OBRIEN MR#: [id number] : 1950 Exam Date: 11/28/2023 Ordering Doctor: [...] cancer at age 46. LOCATION: [facility] BREAST COMPOSITION: The breasts [...] Signed By: 11/28/23 1516 DD/ 1515 TD/TT: Structural Mill Supervisor: MARIANNE [facility] HospitalRadiology Study observation (narrative)[facility] TOMOSYNTHESIS SCREENING BIOrdered By: Radiologist Radiology on 89-42-8471SEKP [employer] Work Phone: IntraOperative Documentson 53-78-1092EirvlFtaxvdciy [id number]#1.00TIFFTrinity Health System Twin City Medical CenterConsenton 82-34-6708Cxsjelm [id number]#1.00TIFACMC Healthcare SystemDischarge Instructionson 12-74-5214Jydvmjxqy Instructions [id number]#1.00TIFACMC Healthcare SystemMain OR Intraoperative Recordon 73-41-2858Ehzy OR Intraoperative Record IntraOp Document Type FT Summary Primary Physician: Pa WEBB MD Finalized Date/Time: 10/16/23 09:46:21 Pt. Name: SHEY OBRIEN/Sex: 1950 Female Med Rec #: [id number] Physician: Pa WEBB MD Financial #: [id number] Pt. Type: O Room/Bed: / Admit/Disch: 10/13/23 [...] Gross Role Performed Anesthesiologist Surgeon - Primary Top Collar Maker - Primary Recreation Engineer Time In 10/13/23 08:55:00 10/13/23 08:55:00 [...] and tissue Entry 1 Skin Integrity Intact, Mondamin, Warm, and Skin Abnormality No Dry Outcomes [...] By: Remigio Infante RN (more content not included)...[facility] Medical CenterPostoperative Documentson 11-51-4129Dczhlehikudvi Documents [id number]#1.00TIFFNormalMagruder Memorial HospitalReminderson 25-35-8259Jxhrvtxwg From: Nhi Aguirre LPN To: N - Clinical; Sent: 10/16/2023 10:15:48 EDT Show up: 09/11/2033 07:00:00 EST Subject: colonoscopy recall Due Date/Time: 10/12/2033 07:00:00 EDT Reminder/Recall Patient due for screening colonoscopy 10/12/2033.[facility] Medical CenterColonoscopy Procedure Reporton 23-77-0404Juyyutzdook Procedure Report Patient: SHEY OBRIEN Age: 73 [...] for screening for malignant neoplasm of rectum (YFH17-VD Z12.12, Discharge, Medical). Course: Progressing as expected. Recommendations: Repeat colonoscopy:: In 10 years. Follow-up:: if problems/questions. Diet:: Regular diet. Medication resumption:: Continue current medications. Return to activities:: After 24 hours. Education and Follow-up: Counseled: Family.[facility] Comment on above:Other Comment: Missing Attachment - attachment storage system not supported [id number] Can be viewed in source systemMissing Attachment - attachment storage system not supported [id number] Can be viewed [facility] systemMissing Attachment - attachment storage system not supported 6339126 Can be viewed in source systemMissing Attachment - attachment storage system not supported 7563974 Can be viewed in source systemMissing Attachment - attachment storage system not supported 5331501 Can be viewed in source systemConsent for Treatmenton 70-06-6030Cqgfeil for Treatment [id number]#1.00TIFFNoSCCI Hospital LimaDischarge Instructionson 32-68-8683Uztjcabbu Instructions SHEY OBRIEN :1950 Visit Date:10/13/2023 Inpatient Discharge Instructions Your Care Team Admitting Physician - aP WEBB MD Referring Physician - Pa WEBB [...] mg Tab) fluticasone nasal (Flonase 0.05 mg/inh [place]) losartan (losartan 25 mg Tab) multivitamin with [...] if needed Where: [address], [address] [place] [phone]- Business (1) Medications What How Much When [...] Unchanged fluticasone nasal (Flonase 0.05 mg/ inh [place]) 2 Sprays Nasal Inhalation Every day Unchanged [...] [facility]. Your [facility] may also give you [...] hours or as instru (more content not included)...[facility] Medical CenterComment on above:Result Comment: Electronically Signed By: Marcy FORDE, Mariaelena\.maikol\Date and Time Signed: 10/12/2408:33 EDTInpatient Patient Summaryon 96-76-9692Gaizvpynm Patient Summary [address] [address] [facility] Clinical Discharge Instructions PERSON INFORMATION Name: SHEY OBRIEN PHYSICIANS Admitting Physician: Pa WEBB MD Attending Physician: Pa WEBB MD PCP: GUERO OLIVO, LATRELL Discharge Diagnosis: Encounter for colorectal cancer screening; Encounter for screening for malignant neoplasm of rectum Comment: PATIENT EDUCATION INFORMATION Instructions: Medication Leaflets: Follow up: With: Address: When: Pa WEBB [address] [facility], [address], [employer] [address] [address] Business (1) , only if [...] (at bedtime). fluticasone nasal (Flonase 0.05 mg/inh [place]) 2 Sprays Nasal Inhalation every day. losartan [...] day (at bedtime) as needed for sleep. Comment:[facility] Medical CenterMain OR PACU I Recordon 49-60-9225Hqau OR PACU I RecordPACU Phase I Document Type FT Summary Primary Physician: Pa WEBB MD Finalized Date/Time: 10/13/23 09:54:27 Pt. Name: SHEY OBRIEN /Sex: 1950 Female Med Rec #: [id number] Physician: Pa WEBB MD Financial #: [id number] Pt. Type: O Room/Bed: / Admit/Disch: 10/13/23 [...] appropriate medication(s), safely administered during the perioperativeperiod [facility] Level PACU I FT Entry 1 Start Time 10/13/23 09:17:00 Stop Time 10/13/23 09:47:00 Acuity Level Acuity Level I Last Modified By: Mariaelena Vidal RN 10/13/23 09:54:26 Finalized By: Mariaelena Vidal RN Document Signatures Signed By: Mariaelena Vidal RN 10/13/23 09:54NoSCCI Hospital LimaMain OR Preoperative Recordon 10-92-2727Zzlu OR Preoperative RecordHolding Area Document Type FT Summary Primary Physician: Pa WEBB MD Finalized Date/Time: 10/13/23 08:06:06 Pt. Name: KARYNSHEY/Sex: 1950 Female Med Rec #: [id number] Physician: Pa WEBB MD Financial #: [id number] Pt. Type: O Room/Bed: / Admit/Disch: 10/13/23 [...] below for reason Last Modified By: Trip Dmoínguez 10/13/23 08:03:15 Finalized By: Trip Domínguez Document Signatures Signed By: Trip Domínguez 10/13/23 08:06NormOhioHealth Pickerington Methodist HospitalMonitor Recordon 93-89-2493Nwzifyj Record [id number]#1.00TIFFNoSCCI Hospital LimaMonitor [id number]#1.00TIFFNormal [facility] HospitalOut[facility] Surgery Discharge Instructionon 10-13-2023 Outpatient Surgery Discharge Instruction [place] [id number] Patient Discharge Instructions PERSON INFORMATION Name: SHEY [...] Follow up: With: Address: When: Pa WEBB [address] [place] [address] [place], [address], [facility] [address] [place] [address] Business (1) , only if needed Pharmacy Information: You may receive a survey from [employer] asking you to rate your care experience. Your feedback is important and will help us understand what we do well and how we can improve the quality of care we provide to you, your loved ones and our community. It?s an honor to serve you. Thank you for choosing [facility] HERE ARE THE MEDICATION CHANGES THAT [...] (at bedtime). fluticasone nasal (Flonase 0.05 mg/inh [place]) 2 Sprays Nasal Inhalation every day. losartan [...] for sleep. PATIENT EDUCATION INFORMATION Instructions: Medication Leaflets:[facility] CenterPatient Education - Texton 28-60-0326Wuuzadp Education - TextColonoscopy Care After Surgery Please read the instructions outlined below and refer to this sheet in the next few weeks. These discharge instructions provide you with general information on caring [facility] Your doctor may also give you [...] is severe or gets worse throughout the day.[facility] CenterProgress Note-Physicianon 10-13-2023 Progress Note-PhysicianPatient: SHEY OBRIENN: 30-70-69 Age: 73 years Sex: Female : 1950 Associated Diagnoses: None Author: Shaji Bethea Jr., DO Postoperative Information Postoperative disposition: Postoperative disposition: Home. Optimetrix number: Optimetrix number [id number]. Anesthetic utilized: General. Physical Examination Vital Signs [...] to Ambulatory Surgery Unit, and To home ).[facility] Comment on above:Result Comment: Electronically Signed By: [...] m2 Documented Medications Documented Flonase 0.05 mg/inh [place]: 2 spray(s), Nasal, Daily, Refill(s) 0, Dry [...] a day (at bedtime) Flonase 0.05 mg/inh [place] 2 spray(s), Nasal, Daily losartan 25 mg [...] All Problems BMI 39.0-39.9,adult / SNOMED CT 805901241 / Confirmed Chronic obstructive pulmonary disease / SNOMED CT 76605824 / Confirmed Dyslipidemia / SNOMED CT 4187578132 / Confirmed GERD (gastroesophageal reflux disease) / SNOMED CT 164460227 / Confirmed Hiatal hernia / SNOMED CT 865231468 / Confirmed HTN (hypertension) / SNOMED CT 7009130430 / Confirmed Insomnia / SNOMED CT 274104705 / Confirmed Lower extremity edema / SNOMED CT 780919378 / Confirmed Morbid obesity / SNOMED CT 936502943 / Confirmed EDWIN (obstructive sleep apnea) / SNOMED CT 156228150 / Confirmed Screening for malignant neoplasm of colon / SNOMED CT 256491245 / Confirmed Seasonal allergic rhinitis / SNOMED CT 438948879 / Confirmed TIA (transient ischemic attack) / SNOMED CT 034508538 / Confirmed Resolved: At risk for falls / SNOMED CT 021825729 Problem added when Risk for Falls Careplan was initiated. Resolved due to patient discharge. Resolved: Hernia / SNOMED CT 765430674 Resolved: Potential for deficient knowledge of cerebrovascular accident (CVA) / IMO 30240631 problem added based on Stroke Powerplan ordered. Resolved due to patient discharge. Resolved: Sleep apnea / SNOMED CT 524272065 Histories Past Medical History: Resolved Hernia (329624008): Resolved. Sleep apnea (897158459): Resolved. Procedure history: ORIF - Open reduction of fracture of ankle with internal fixation ([id number]). Meniscal repair (752850788). Tonsillectomy (288304690). Hand tendon repaired (616009095). Social History Social & Psychosocial Habits Alcohol 09/12/2023 Frequency: 1-2 times per year Substance Abuse Comment: denies - 03/03/2021 07:19 - Carolyn Stewart RN 09/12/2023 Risk Assessment: Denies Substance Abuse Tobacco 09/12/2023 Tobacco Use: Former smoker, quit more Smokeless tobacco use: Never Type: Cigarettes . Physical Examination Vital Signs 10/13/2023 8:03 EDT Temperature Temporal Artery 36.3 DegC (more content not included)...[facility] CenterComment on above: Result Comment: Electronically Signed By: Shaji Bethea Jr., DO\.maikol\Date and Time Signed: 10/13/23 08:04 EDTConsent for Procedure/Surgeryon 23-18-3892Xthnpdw for Procedure/[id number]#1.00TIFFNormal [facility] HospitalAmbulatory Visit Summaryon 01-22-1370Nvxgmzoamd Visit Summary SHEY OBRIEN :1950 Visit Date:09/12/2023 Ambulatory Visit Instructions Your Diagnosis BMI 39.0-39.9,adult Your Care Team Attending Physician - TRACEY OLIVO, Pa Vivas Primary Care Physician - LATRELL JACK MD Referring Physician - LTARELL JACK MD This Is Your Medications List Contact prescribing physician if questions or concerns aspirin (aspirin 81 mg Oral EC Tab) atorvastatin (atorvastatin 40 mg Tab) cholecalciferol (Vitamin D3 1000 intl units (25 mcg) Tab) famotidine (famotidine 40 mg Tab) fluticasone nasal (Flonase 0.05 mg/inh [place]) losartan (losartan 25 mg Tab) multivitamin with [...] Unchanged fluticasone nasal (Flonase 0.05 mg/ inh [place]) 2 Sprays Nasal Inhalation Every day Contact [...] you for choosing us for your care. [facility] CenterProvider Letteron 08-25-2023 Provider Letter August 25, 2023 SHEY OBRIEN [address] [place] [id number] : 1950 Dear Ms. Obrien, We have been trying to reach you with no success regarding a referral from Dr Jack. It is important that you return our call upon receiving this letter so that we can set up an appointment for youin either our [place] or [place] office. Also, at the time of your call, please provide us with your current demographic and insurance information. Thank you for your prompt attention to this matter. Sincerely, [facility] General Surgery [phone] Hospital LimaPhysician Referralon 08-15-2023 Physician [id number]#1.00TIFFTr[facility] Health System Twin City Medical CenterCT LUNG CANCER SCREENINGon 05-02-1546MI LUNG CANCER SCREENINGEXAMINATION: CT LUNG CANCER SCREENING [...] Electronically authenticated by: MEHNAZ SANTIAGO Date: 2022-07-28 15:28[facility] HospitalBNPon 20-62-7278Vpfklvueswp peptide B (Bld) [Mass/Vol]108.0 pg/mLNormal<=900.0The [facility] CenterComment on above:Performed By: #### BMP, BNP, HSTROPN ####[facility] [address]khpqn[address] [place] [address]Dr. Yilan ChangCBC AUTO DIFFon 50-20-4762VPKZ #0.0 103/ulNormal0.0-0.1The [facility] CenterComment on above:Performed By: #### CBC ####[facility] S[address] [place], [place] [address]Dr.Yilan ChangBasophils/100 WBC (Bld)0.7 %Normal0.2-2.0The [facility] CenterComment on above:Performed By: #### CBC ####[facility] Oozqjvedoj[address] [place], [place] [address]Dr.Yilan ChangEO #0.1 103/ulNormal0.0-0.7The [facility] CenterComment on above:Performed By: #### CBC ####[facility] Ngbwxqavmp[address] [place], [place] [address]Dr.Yilan ChangEosinophils/100 WBC (Bld)1.4 %Normal 0.9-7.0The [facility] CenterComment on above:Performed By: #### CBC ####[facility] Gjdxuw[address] [place], [place] [address]Dr.Felisa Trujillo Erythrocyte distribution width (RBC) [Ratio]13.2 %Uvltfe93.0-15.0The [facility] CenterComment on above:Performed By: #### CBC ####[facility] Cfmmdzhfiw[address] [place], [place] [address]Dr.Felisa TrujilloHematocrit (Bld) [Volume fraction]36.6 %Rsidjm66.0-48.0The [place] HospitalComment on above:Performed By: #### CBC ####[facility] Phymzneegz[address] [place], [place] [address]Dr.Krystakun TrujilloHemoglobin (Bld) [Mass/Vol]12.7 g/dL Bqbscm35.0-16.0The [facility] CenterComment on above:Performed By: #### CBC ####[facility] Pzqqrczuzm[address] [place], [place] [address]Dr. Felisa TrujilloIG #0.01 10e3/ulNormal0.00-0.03The [facility] CenterComment on above: Performed By: #### CBC ####[facility] Ogqewzxeiv[address] [place], [place] [address]Dr.Felisa TrujilloIG %0.2 %Normal0.0-0.5The [facility] CenterComment on above:Performed By: #### CBC ####[facility] Fwumrcvcnu[address] [place], [place] [address]Dr.Felisa TrujilloLYMPH #1.0 103/ulCritically low1.2-3.8The [facility] CenterComment on above:Performed By: #### CBC ####[facility] Cnixqrtpvx[address] [place], [place] [address]Dr.Krystakun TrujilloLymphocytes/100 WBC (Bld)22.3 %Nfasri67.5-60.0The [facility] CenterComment on above:Performed By: #### CBC ####[facility] Nmxhgsmnkj[address] [place], [place] [address]Dr.Krystakun TrujilloMANUAL DIFF REQ NONormalThe [facility] CenterComment on above:Performed By: #### CBC ####[facility] Zftalvzwbc[address] [place] [address]Dr. Felisa TrujilloH (RBC) [Entitic mass]31.8 bsDrbjfb55.7-34.0[facility] Comment on above:Performed By: #### CBC ####[facility] Jjsmmkabqc[address] [place], [place] [address]Dr.Felisa TrujilloMCHC (RBC) [Mass/Vol]34.7 g/dL Qpjmqv62.9-35.2The [facility] CenterComment on above:Performed By: #### CBC ####[facility] Bskespsere[address] [place], [place] [address]Dr. Felisa TrujilloMCV (RBC) [Entitic vol]91.7 eWHrlljq02.0-99.0The [facility] Comment on above:Performed By: #### CBC ####[facility] Qniatzeflq[address] [place], [place] [address]Dr.Felisa TrujilloMONO #0.5 103/ulNormal0.3-0.8 The [facility] CenterComment on above:Performed By: #### CBC ####[facility] Ckwjxiaupn[address] [place], [place] [address]Dr.Felisa Trujillo Monocytes/100 WBC (Bld)11.7 %Normal1.7-12.0The [facility] CenterComment on above:Performed By: #### CBC ####[facility] Rdwzhvdhzq[address] [place], [place] [address]Dr.Felisa TrujilloNEUT #2.7 103/ulNormal1.4-6.5The [facility] CenterComment on above:Performed By: #### CBC ####[facility] Wbxukprlhx[address] [place], [place] [address]Dr.Felisa TrujilloNeutrophils/100 WBC (Bld)63.7 %Laiofz54.0-75.0The [facility] CenterComment on above:Performed By: #### CBC ####[facility] Mvdlpxypzy[address] [place], [place] [address]Dr.Felisa TrujilloPlatelet mean volume (Bld) [Entitic vol]10.2 fLNormal9.5-13.5 The [facility] CenterComment on above:Performed By: #### CBC ####[facility] [address] [place] [address]Dr.Felisa TrujilloPLT149 103/ulCritically edr473-163Ltx [facility] CenterComment on above:Performed By: #### CBC ####[facility] Oxnydrcooe[address] [place] [address]Dr.Felisa TrujilloRBC3.99 106/ulCritically low4.20-5.40The [facility] Comment on above:Performed By: #### CBC ####[facility] Qsmyzhhsnt[address] [place] [address]Dr.Felisa TrujilloWBC4.3 103/ulNormal4.0-11.0The [facility] CenterComment on above:Performed By: #### CBC ####[facility] Tzc[address]mtb[address] [place] [address]Dr.Felisa TrujilloCovid-19 PCR (CVDTBH)on 43-91-3568AQOI-CoV-2 (COVID-19) RNA DUGLAS+probe Ql (Unsp spec)Detected Critically abnormalNOT DETECTEDThe [facility] CenterComment on above:Result Comment: This test is not yet approved or cleared by the [place] FDA. When there are no FDA-approved or cleared tests available, and other criteria are met, FDA can make tests available under an emergency access mechanism called an Emergency Use Authorization (EUA). The EUA for this test is supported by the Resident Care Coordinator of Health and Human Service's declaration that [...] longer be used). Performed By: #### CVDTBH ####[facility] Rcjnaoigma[address] [place] [address]Dr. Felisa RonniePROF CHEM 8 (BAS METB)on 02-22-2022 Anion gap [Moles/Vol]14.9 mmol/LNormalThe [facility] on above: Performed By: #### BMP, BNP, HSTROPN ####[facility] Mkfzxnfrbt[address] [place] [address]Dr. Yilan ChangCalcium [Mass/Vol]8.9 mg/dLNormal 8.5-10.1The [facility] on above:Performed By: #### BMP, BNP, HSTROPN ####[facility] K[address]urtbx[address] [place], [place] [address]Dr. Yilan ChangChloride [Moles/Vol]104 mmol/TTefepm15-248Lei [facility] on above:Performed By: #### BMP, BNP, HSTROPN ####[facility] [address] [place], [place] [address]Dr. Yilan ChangCO2 [Moles/Vol]24.0 mmol/BShnkmn06.0-32.0The [facility] on above: Performed By: #### BMP, BNP, HSTROPN ####[facility] [address]xmfl[address] [place], [place] [address]Dr. Yilan ChangCreatinine [Mass/Vol]0.98 mg/dL Normal0.55-1.02The [facility] on above:Performed By: #### BMP, BNP, HSTROPN ####[facility] Jxdmovcztn[address] [place], [place] [address]Dr. Yilan ChangEGFR-AF ITALIAN>60Normal>=60The [facility] on above:Performed By: #### BMP, BNP, HSTROPN ####[facility] Jdmavygtlc[address] [place], [place] [address]Dr. Yilan ChangEGFR-NON AF UVVENSHJ16 mL/min/1.48w0Flafkvnatv low>=60The [facility] on above:Performed By: #### BMP, BNP, HSTROPN ####[facility] Bityihcgpm[address] [place], [place] [address]Dr. Yilan ChangGlucose [Mass/Vol]136 mg/dLCritically zxip07-301Kze [facility] HospitalComment on above:Performed By: #### BMP, BNP, HSTROPN ####[facility] [address]hw[address] [place] [address]Dr. Yilan ChangPotassium [Moles/Vol]3.9 mmol/LNormal3.5-5.1The [facility] CenterComselect specialty hospital on above:Performed By: #### BMP, BNP, HSTROPN ####[facility] S[address]ualeht[address] [place] [address]Dr. Yilan ChangSodium [Moles/Vol]139 mmol/AJmhgjt652-415Xwa [facility] on above: Performed By: #### BMP, BNP, HSTROPN ####[facility] [address]oadolzrkp[address] [place] [address]Dr. Yilan ChangUrea nitrogen [Mass/Vol]14.0 mg/dL Normal7.0-18.0The [facility] on above:Performed By: #### BMP, BNP, HSTROPN ####[facility] C[address]zexuujk[address] [place] [address]Dr. Yilan ChangUrea nitrogen/Creatinine [Mass ratio]14.3 mg/mgNormalThe [facility] on above:Performed By: #### BMP, BNP, HSTROPN ####[facility] L[address]ptupeav[address] [place] [address]Dr. Yilan ChangTROPONIN, HIGH SENSITIVITYon 77-48-3647GHEAJP1.9 pg/mLNormal4.0-51.3 The [facility] CenterComselect specialty hospital on above:Result Comment: CUT-OFF POINTS HAVE BEEN ESTABLISHED BASED ON THE FOURTH UNIVERSAL DEFINITIONS OF MYOCARDIAL INFARCTION. THE UPPER REFERENCE LIMIT (URL) OF TROPONIN, DEFINED THE 99TH PERCENTILE OF cTnI DISTRIBUTION IN A REFERENCE POPULATION, HAS BEEN CONFIRMED THE DECISION THRESHOLD FOR SC DIAGNOSIS.Performed By: #### BMP, BNP, HSTROPN ####[facility] [address]nny[address]ffc[address] [place] [address]Dr. Yilan ChangXR CHEST 1 Von 50-62-5815DR CHEST 1 VEXAMINATION: XR CHEST 1 V [...] Electronically authenticated by: MEHNAZ SANTIAGO Date: 2022-02-22 13:30[facility] HospitalMG MAMM SCREEN 3D RONALD CADon 96-05-9523ZJ MAMM SCREEN 3D RONALD CAD Patient: SHEY OBRIEN Exam Date: 11/11/2021 : 1950 Gender:F Ordering : DR LATRELL JACK . Admission #: [id number] Family : Order #: [id number] CLICK HERE TO VIEW EXAM RADIOLOGY REPORT [...] cancer at age 46. LOCATION: [facility] BREAST COMPOSITION: Almost entirely [...] by: Willard Anand MD on 11/11/2021 at 13:04[facility] HospitalBNP on 91-74-6154Sdcwwizxzah peptide B (Bld) [Mass/Vol]42.0 pg/mLNormal<=900.0The [facility] CenterComment on above:Performed By: #### HSTROPN, CMP, BNP #### [facility] [address] [place] [address] [address] Felisa Casas AUTO DIFFon 66-47-2758QPDD #0.1 103/ulNormal0.0-0.1The [facility] CenterComment on above:Performed By: #### CBC #### [facility] [address] [place] [address] [address] Felisa TrujilloBasophils/100 WBC (Bld)0.8 %Normal0.2-2.0[facility] Comment on above:Performed By: #### CBC #### [facility] [address] [place] [address] Dr. Felisa Bond #0.3 103/ulNormal0.0-0.7The [facility] CenterComment on above: Performed By: #### CBC #### [facility] [address] [place] [address] Dr. Felisa Kamaraosinophils/100 WBC (Bld)3.9 %Normal0.9-7.0The [facility] Comment on above:Performed By: #### CBC #### [facility] [address] [place] [address] Dr. Felisa Kamararythrocyte distribution width (RBC) [Ratio]12.7 %Hazhgq92.0-15.0 The [facility] CenterComment on above:Performed By: #### CBC #### [facility] [address] [place] [address] Dr. Felisa TrujilloHematocrit (Bld) [Volume fraction]40.2 %Znjmdj97.0-48.0The [facility] CenterComment on above:Performed By: #### CBC #### [facility] [address] [place] [address] Dr. Felisa TrujilloHemoglobin (Bld) [Mass/Vol]13.6 g/sBZthczo92.0-16.0The [facility] CenterComment on above:Performed By: #### CBC #### [facility] [address] [place] [address] Dr. Felisa Bryant #0.02 10e3/ulNormal0.00-0.03The [facility] on above:Performed By: #### CBC #### [facility] [address] [place] [address] [address] Felisa Bryant %0.3 %Normal0.0-0.5The [facility] on above: Performed By: #### CBC #### [facility] [address] [place] [address] [address] Felisa Chavez #1.9 103/ulNormal1.2-3.8The [facility] CenterComselect specialty hospital on above:Performed By: #### CBC #### [facility] [address] [place] [address] Dr. Felisa Tiwarihocytes/100 WBC (Bld)30.0 %Wmjkvw73.5-60.0The [facility] CenterComselect specialty hospital on above:Performed By: #### CBC #### [facility] [address] [place] [address] Dr. Felisa Early DIFF REQNONormalThe [facility] CenterComment on above: Performed By: #### CBC #### [facility] [address] [place] [address] Dr. Felisa Mckinney (RBC) [Entitic mass]31.5 gwIfpnee14.7-34.0The [facility] on above:Performed By: #### CBC #### [facility] [address] [place] [address] Dr. Felisa Suarez (RBC) [Mass/Vol]33.8 g/zHGohblv60.9-35.2The [facility] Hospitalment on above:Performed By: #### CBC #### [facility] [address] [place] [address] Dr. Felisa Suarez (RBC) [Entitic vol]93.1 mGYjmumr94.0-99.0The [facility] on above:Performed By: #### CBC #### [facility] [address] [place] [address] Dr. Felisa Carmona #0.6 103/ulNormal0.3-0.8The [facility] CenterComment on above:Performed By: #### CBC #### [facility] [address] [place] [address] Dr. Felisa Agueroocytes/100 WBC (Bld)8.5 %Normal1.7-12.0The [facility] Comment on above:Performed By: #### CBC #### [facility] [address] [place] [address] Dr. Felisa Lira #3.7 103/ulNormal1.4-6.5The [facility] CenterComment on above:Performed By: #### CBC #### [facility] [address] [place] [address] Dr. Felisa Corriganutrophils/100 WBC (Bld)56.5 %Eqarxl93.0-75.0The [facility] CenterComment on above:Performed By: #### CBC #### [facility] [address] [place] [address] Dr. Felisa Blanklet mean volume (Bld) [Entitic vol]9.9 fLNormal9.5-13.5The [facility] CenterComment on above:Performed By: #### CBC #### [facility] [address] [place] [address] Dr. Felisa TrujilloPLT193 103/uwAncimn162-983Wqj [facility] CenterComment on above: Performed By: #### CBC #### [facility] [address] [place] [address] Dr. Felisa TrujilloRBC4.32 106/ulNormal4.20-5.40The [facility] CenterComment on above:Performed By: #### CBC #### [facility] [address] [place] [address] Dr. Felisa TrujilloWBC6.5 103/ulNormal4.0-11.0The [facility] CenterComment on above: Performed By: #### CBC #### [facility] [address] [place] [address] Dr. Felisa Tucker-19 PCR (CVDTB)on 57-97-4800MXGE-CoV-2 (COVID-19) RNA DUGLAS+probe Ql (Unsp spec)Not detectedNormalNOT DETECTEDThe [facility] Comment on above:Result Comment: When diagnostic testing [...] for this test is supported by the [place] of Health and Human Service's declaration that [...] longer be used).Performed By: #### CVDTBH #### [facility] [address] [place] [address] [address] Felisa TrujilloLACTATE/LACTIC ACIDon 98-61-6912Hjizjby [Moles/Vol]1.0 mmol/L Normal0.4-2.0The [facility] CenterComment on above:Performed By: #### LACT ####[facility] [address] [place] [address]DrMichelle TrujilloPH VENOUS BLOODon 65-30-2395POO8 YCKUEN10.3 rrZeUogilb35.0-52.0The [facility] CenterComment on above:Performed By: #### PHVEN ####[facility] [address] [place] [address]DrMichelle Roberto ChangpH VENOUS 7.431Critically high7.330-7.430The [facility] CenterComment on above:Performed By: #### PHVEN ####[facility] [address] [place] [address]Dr. Felisa TrujilloPROF 14(COMP METB)on 82-65-8481Fsyxcoc [Mass/Vol]4.1 g/dLNormal3.4-5.0The [facility] CenterComment on above:Performed By: #### HSTROPN, CMP, BNP ####[facility] [address] [place] [address]Dr. Yilan ChangAlbumin/Globulin [Mass ratio]1.1 {ratio}NormalThe [facility] CenterComment on above:Performed By: #### HSTROPN, CMP, BNP ####[facility] [address] [place] [address]Dr. Yilan ChangALP [Catalytic activity/Vol]120 U/LCritically vlob16-997Rub [facility] CenterComment on above:Performed By: #### HSTROPN, CMP, BNP ####[facility] R[address]fxedzpv[address] [place] [address]Dr. Yilan ChangALT [Catalytic activity/Vol]29 U/NTrsxuh14-96Hjx [facility] CenterComment on above: Performed By: #### HSTROPN, CMP, BNP ####[facility] [address]rx[address] [place], [place] [address]Dr. Yilan ChangAnion gap [Moles/Vol]14.2 mmol/L NormalThe [facility] CenterComment on above:Performed By: #### HSTROPN, CMP, BNP ####[facility] [address]ykrv[address] [place] [address]Dr. Yilan ChangAST [Catalytic activity/Vol]24 U/AFqbtfa00-10Vqf [facility] Comment on above:Performed By: #### HSTROPN, CMP, BNP ####[facility] [address]ntgt[address] [place] [address]Dr. Yilan ChangBilirubin [Mass/Vol]0.6 mg/dLNormal0.2-1.0The [facility] CenterComment on above:Performed By: #### HSTROPN, CMP, BNP ####[facility] [address] [place] [address]Dr. Yilan ChangCalcium [Mass/Vol]8.8 mg/dLNormal 8.5-10.1The [facility] CenterComment on above:Performed By: #### HSTROPN, CMP, BNP ####[facility] [address]zkq[address] [place] [address]Dr. Yilan ChangChloride [Moles/Vol]103 mmol/HKmtkvg18-012Ses [facility] Comment on above:Performed By: #### HSTROPN, CMP, BNP ####[facility] [address] [address]Dr. Yilan ChangCO2 [Moles/Vol] 25.3 mmol/YBgcxjt67.0-32.0The [facility] CenterComment on above:Performed By: #### HSTROPN, CMP, BNP ####[facility] Ey[address] [place], [place] [address]Dr. Yilan ChangCreatinine [Mass/Vol]0.86 mg/dLNormal 0.55-1.02The [facility] Hospitalment on above:Performed By: #### HSTROPN, CMP, BNP ####[facility] [address] [place], [place] [address]Dr. Yilan ChangEGFR-AF ITALIAN>60Normal>=60The [facility] Hospitalment on above: Performed By: #### HSTROPN, CMP, BNP ####[facility] [address] [place], [place] [address]Dr. Yilan ChangEGFR-NON AF ITALIAN>60Normal>=60 The [facility] Hospitalment on above:Performed By: #### HSTROPN, CMP, BNP ####[facility] [address] [address]Dr. Yilan ChangGlobulin (S) [Mass/Vol]3.6 g/dLNormalThe [facility] CenterComment on above:Performed By: #### HSTROPN, CMP, BNP ####[facility] [address] [place], [place] [address]Dr. Yilan ChangGlucose [Mass/Vol]90 mg/dL Kzjuxv66-789Him [facility] Hospitalment on above:Performed By: #### HSTROPN, CMP, BNP ####[facility] [address] [address]Dr. Felisa ChangPotassium [Moles/Vol]3.5 mmol/LNormal3.5-5.1The [facility] CenterComment on above:Performed By: #### HSTROPN, CMP, BNP ####[facility] [address] [address]Dr. Felisa Trujillo Protein [Mass/Vol]7.7 g/dLNormal6.1-8.2The [facility] CenterComment on above: Performed By: #### HSTROPN, CMP, BNP ####[facility] [address] [address]Dr. Felisa ChangSodium [Moles/Vol]139 mmol/LNormal 136-145The [facility] CenterComment on above:Performed By: #### HSTROPN, CMP, BNP ####[facility] [address] [address]Dr. Felisa ChangUrea nitrogen [Mass/Vol]13.0 mg/dLNormal7.0-18.0[facility] Comment on above:Performed By: #### HSTROPN, CMP, BNP ####[facility] [address] [address]Dr. Krystalan ChangUrea nitrogen/Creatinine [Mass ratio]15.1 mg/mgAdams County HospitalComment on above:Performed By: #### HSTROPN, CMP, BNP ####[facility] [address] [address]Dr. Felisa ChangPROTIMEon 70-47-4931JQS Coag (PPP) [Relative time]0.99 {INR}NormalThe [facility] CenterComselect specialty hospital on above: Performed By: #### PTT, PT #### [facility] [address] [address] [address] Felisa Lake GUIDELINESSEE BELOWAdams County HospitalComment on above:Result Comment: DESIRED INR: 2.0 - 3.0 CONDITIONS NOT LISTED BELOW 2.5 - 3.5 FOR PROSTHETIC HEART VALVE REPLACEMENT 2.5 - 3.5 RECURRENT THROMBOSIS Performed By: #### PTT, PT #### [facility] [address] [address] [address] Felisa Hummel Coag (PPP) [Time]10.7 sNormal9.0-11.6The [facility] Comment on above:Performed By: #### PTT, PT #### [facility] [address] [address] [address] Felisa Kahn 39-63-8741sFGP Coag (Bld) [Time]25.9 qEwoqvg15.3-36.2The [facility] CenterComment on above:Performed By: #### PTT, PT #### [facility] [address] [place] [address] Dr. Felisa Romo, HIGH SENSITIVITYon 18-93-5576JJEKKF1.7 pg/mLNormal 4.0-51.3The [facility] CenterComment on above:Result Comment: CUT-OFF POINTS HAVE BEEN ESTABLISHED BASED ON THE FOURTH UNIVERSAL DEFINITIONS OF MYOCARDIAL INFARCTION. THE UPPER REFERENCE LIMIT (URL) OF TROPONIN, DEFINED THE 99TH PERCENTILE OF cTnI DISTRIBUTION IN A REFERENCE POPULATION, HAS BEEN CONFIRMED THE DECISION THRESHOLD FOR SC DIAGNOSIS.Performed By: #### HSTROPN, CMP, BNP #### [facility] [address] [place] [address] Dr. Felisa TrujilloCovid-19 PCR ([facility])on 07-68-2722MISY-CoV-2 (COVID-19) RNA DUGLAS+probe Ql (Unsp spec)Not detectedNormalNOT DETECTEDThe [facility] Comment on above:Result Comment: This test is not yet approved or cleared by the [place] FDA. When there are no FDA-approved or cleared tests available, and other criteria are met, FDA can make tests available under an emergency access mechanism called an Emergency Use Authorization (EUA). The EUA for this test is supported by the [place] of Health and Human Service's (HHS's) declaration [...] consistent with SARS-CoV-2.Performed By: #### CVDTBH #### [facility] [address] [place], [place] [address] Dr. Felisa TrujilloXR CHEST 2 Von 50-41-4065SD CHEST 2 VEXAMINATION: XR CHEST 2 V [...] Electronically authenticated by: MEHNAZ SANTIAGO Date: 2021-09-02 14:39NoMetroHealth Parma Medical CenterLab - AP Resultson 83-89-6549Iyj - AP Results [id number]#1.00OTGTIFFSelect Medical Specialty Hospital [facility] Pathology Sendout Teston 62-29-5500Voztfonfg Send Out.See ReportSelect Medical Specialty Hospital - Columbus SouthComment on above:Order Comment: left ring finger , cyst tendon sheath Performed By: #### [id number] ####[facility] (DEFAULT)[address] [place], [place] [address]Yaqjml Summaryon 53-33-8768Dqgszw SummaryCODING DATE: 02/08/2019 [facility] STATUS: Home PAYOR: Medicare MC APC DESCRIPTION 5112 Level 2 Musculoskeletal Procedures ADMIT DX: REASON FOR VISIT DX: M65.342 Trigger finger, left ring finger FINAL DX: PRINCIPAL: M65.342 Trigger finger, left ring finger SECONDARY: M67.442 Ganglion, left hand J44.9 Chronic obstructive pulmonary disease, unspecified PYMT PROC APC STAT DESCRIPTION DOCTOR NAME DATE 65956 5112 J1 Excision of lesion of Daquan [...] By: Cassy Bradley Date Saved: 02/08/2019 11:52 [facility] CenterConsent Formson 02-05-2019 Consent [id number]#1.00OTParkwood HospitalDischarge Instructionson 54-04-8530Esptgkfuf Instructions [id number]#1.00[facility] History and Physicalon 90-06-1434Dnxkkcc and Physical [id number]#1.00OTParkwood HospitalMAGR Intraoperative Recordon 34-66-6670QXJC Intraoperative RecordMAGR Intra-Op Record Summary Primary Physician: Daquan Antunez DO Finalized Date/Time: 02/05/19 07:41:01 Pt. Name: SHEY OBRIEN/Sex: 1950 FEMALE Med Rec #: [id number] Physician: Daquan Antnuez DO Financial #: [id number] Pt. Type: D Room/Bed: / Admit/Disch: 02/04/19 [...] Role Performed Surgeon - Primary Anesthesiologist of Top Collar Maker Record Time In 02/04/19 15:31:00 02/04/19 15:31:00 02/04/19 15:31:00 Time Out 02/04/19 16:08:00 02/04/19 16:08:00 02/04/19 16:08:00 Procedure Trigger Finger Release Trigger Finger Release Trigger Finger Release Last Modified By: Toshia Plascencia RN, Barbara RN Long, Barbara RN 02/04/19 16:16:05 02/04/19 16:16:05 02/04/19 16:16:05 Entry 4 Entry 5 Case Attendee Paloma Esparza Regina CST Role Performed Scrub Personnel Gasoline Engine Inspector Time In 02/04/19 15:31:00 02/04/19 15:31:00 Time [...] Pick List 02/05/19 07:38 MHBLONG Modify [facility] List 02/05/19 07:40 MHBLONG Modify [facility] HospitalMedication Managementon 88-95-5971Ouqqlbcfuw Management [id number]#1.00[facility] Provider Orderson 42-66-5435Cbeuoyad Orders [id number]#1.00[facility] Anesthesia Noteon 31-38-4316Fujccxkgpz NotePatient: SHEY OBRIEN Age: 68 years Sex: [...] Problems Chronic back pain / SNOMED CT 662854380 / Confirmed Former smoker / SNOMED CT 92459034 / Confirmed GERD (gastroesophageal reflux disease) / SNOMED CT 735358763 / Confirmed Scar tissue / SNOMED CT 560572088 / Confirmed Sleep apnea / SNOMED CT 401301487 / Confirmed Histories Family History: No family history items have been selected or recorded. Procedure history: Tonsillectomy (459346652). Epidural injection of lumbar spine using fluoroscopic guidance (9129056449). Social History Alcohol Assessment Use: Current. Beer, [...] rhythm. Review / Management Laboratory Results Plan [place] [employer] Anesthesiologists#(ASA) physical status classification: Class [...] [Verified on: 02/04/2019 15:44 EDT] Alirio Mcclellan MDSelect Medical Specialty Hospital - [facility] SouthInpatient Patient Summaryon 02-04-2019 [place] [address] Patient Discharge Instructions Name: SHEY OBRIEN : 52 Patient Address: [address] [place] [address] Primary Care Provider: Name: LATRELL JACK After you are discharged if you find you have any questions, please, call [phone] ext [phone] to speak to a nurse. Discharge Diagnosis: Trigger finger Prescription Information: If you have been given a prescription for narcotics, seek immediate medical attention if you have any difficulty breathing or any sudden status changes such as confusion andsleepiness. If you or anyone you know is experiencing suicidal thoughts, mental health, alcohol and/or drug addiction problems; contact the [facility] 30/01 Crisis Hotline -Text 4HFUS to 898658. If you received any narcotics, sedation, or [...] business decisions or sign any legal documents [facility] would like to thank you for allowing us to assist you with your healthcare needs.The following includes patient education materials and information regarding your injury/illness. SHEY OBRIEN has been given the following list of follow-up instructions, prescriptions, andpatient education materials: Follow-up Instructions With: Address: When: Daquan Antunez [address], [address] [place], [place] [address] Business (2) 02/12/2019 2:00 PM With: Address: When: LATRELL JACK [facility] [place], [place] [id number] Business (1) Medications During the course of [...] awake -DO NOT lift heavy objects or compliance professional forcefully with the affected hand -DO NOT [...] or concerns, please call the office at [phone] or go to the emergency room -Follow [...] Centers for Disease Control and Prevention March 2014[facility] MAGR Postoperative Recordon 07-32-3574YRSX Postoperative RecordMAGR Phase II Record Summary Primary Physician: Daquan Antunez DO Finalized Date/Time: 02/04/19 17:11:50 Pt. Name: SHEY OBRIEN/Sex: 1950 FEMALE Med Rec #: [id number] Physician: Daquan Antunez DO Financial #: [id number] Pt. Type: D Room/Bed: / Admit/Disch: 02/04/19 [...] Signatures Signed By: Jamil Garibay RN 02/04/19 17:11[facility] Preoperative Recordon 93-71-9078DXFM Preoperative RecordMA Pre-Op Record Summary Primary Physician: Daquan Antunez DO Finalized Date/Time: 02/04/19 15:37:19 Pt. Name: SHEY OBRIEN NORMAN /Sex: 1950 FEMALE Med Rec #: [id number] Physician: Daquan Antunez DO Financial #: [id number] Pt. Type: D Room/Bed: / Admit/Disch: 02/04/19 [...] Signatures Signed By: Toshia Plascencia RN 02/04/19 15:37[facility] SouthOperative Report - Surgeon/Physicianon 93-55-9022Fipswfvkz Report - Surgeon/PhysicianProcedure: Release of trigger finger [...] [Verified on: 02/04/2019 16:37 EDT] [facility]unez [facility]Patient Handouton 02-04-2019 Patient HandoutDRMichelle OHARA POST OPERATIVE INSTRUCTIONS FOR FINGER SURGERY/MALLET FINGER REPAIR SURGEONS WRITTEN INSTRUTCTIONS:' -Keep your hand elevated above your elbow for the first 24 hours after surgery and apply an ice bagat intervals for the first 24 hours -Wiggle the unaffected fingers frequently while awake -DO NOT lift heavy objects or compliance professional forcefully with the affected hand -DO NOT [...] or concerns, please call the office at [phone] or go to the emergency room -Follow up as scheduledSelect Medical Specialty Hospital - [facility] SouthProgress Note - Nurseon 02-01-2019 Progress Note - NurseSpoke with pt regarding arrival time of 1145 and NPO status. Verbalized understanding. 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 Verbalized understanding. [Electronically Signed on: 02/01/2019 14:53 EDT] Kika Akers RN [Verified on: 02/01/2019 14:53 EDT] Kika Akers RNACMC Healthcare SystemCoding Summaryon 63-71-9366Cmisff SummaryCODING DATE: 01/29/2019 [facility] STATUS: Home PAYOR: Medicare MC [...] By: Lili Cueto Date Saved: 01/29/2019 01:42 pmNTr[facility].Auto Diff 1on 01-28-2019 Auto Coosa %8 %Normal1-12G[facility]beigh HospitalComment on above:Performed By: #### [id number], [id number] #### [facility] (DEFAULT) [address] [place] [address]Gpir Abs#0.0 n14Wucixy6.0-0.2Magrpremier health miami valley hospital north HospitalComment on above:Performed By: #### [id number], [id number] #### [facility] (DEFAULT) [address] [place] [address] 73027Qhwegsczf/100 WBC (Bld)0.4 %Normal0.2-2.0[facility] Hospital Comment on above:Performed By: #### [id number], [id number] #### [facility] (DEFAULT) [address] [place] [address] 44663Gqx Abs#0.2 l55Wgxjjh1.0-0.4[facility] HospitalComment on above:Performed By: #### [id number], [id number] #### [facility] (DEFAULT) [address] [place] [address] 72812Vmqeykdmmyj/100 WBC (Bld)3.5 %Normal0.9-4.0[facility] HospitalComment on above:Performed By: #### [id number], [id number] #### [facility] (DEFAULT) [address] [place] [address] 84870Rnnmmtqehmm (Bld) [#/Vol]1.6 v46Doyldj2.3-2.9[facility] HospitalComment on above:Performed By: #### [id number], [id number] #### [facility] (DEFAULT) [address] [place] [address] 17657Ujlijslxrxi/100 WBC (Bld)32 %Yidpok10-49Mazpbqnt Hospital Comment on above:Performed By: #### [id number], [id number] #### [facility] (DEFAULT) [address] [place] [address] 15151Csro Abs#0.4 j50Rhtjco1.0-0.8[facility] HospitalComment on above:Performed By: #### [id number], [id number] #### [facility] (DEFAULT) [address] [place] [address] 54346Mffc Abs#2.8 v62Kewmbh1.5-9.2Moh[facility] HospitalComment on above:Performed By: #### [id number], [id number] #### [facility] (DEFAULT) [address] [place] [address] 06327Xywileqlmwv/100 WBC (Bld)56 %Haarpp58-20F[facility] Comment on above:Performed By: #### [id number], [id number] #### [facility] (DEFAULT) [address] [place] [address] 07212MXT w/ Auto Diffon 02-60-0771Lrdgbpnahun distribution width (RBC) [Ratio]13.4 %Jladdg44.5-15.0[facility] HospitalComment on above: Performed By: #### [id number], [id number] #### [facility] (DEFAULT) [address] [place] [address] 42525Hhnddvopcj (Bld) [Volume fraction]40.4 %Mitkdc19.7-40.4 [facility] HospitalComment on above:Performed By: #### [id number], [id number] #### [facility] (DEFAULT) [address] [place] [address] 60411Gdlcqrmjmb (Bld) [Mass/Vol]13.9 g/aENndpls38.3-15.9 [facility] HospitalComment on above:Performed By: #### [id number], [id number] #### [facility] (DEFAULT) [address] [place] [address] 85658Cbl Diff?AutoNormalMercy Health West Hospital HospitalComment on above: Performed By: #### [id number], [id number] #### [facility] (DEFAULT) [address] [place] [address] 62168DKO (RBC) [Entitic mass]31 ftQryiym06-41Vrvqupxz Hospital Comment on above:Performed By: #### [id number], [id number] #### [facility] (DEFAULT) [address] [place] [address] 00487QLCN (RBC) [Mass/Vol]34 g/aGCwlpbo99-63Slkuzipi Hospital Comment on above:Performed By: #### [id number], [id number] #### [facility] (DEFAULT) [address] [place] [address] 36368BLS (RBC) [Entitic vol]90 iDOiiiaw63-931Wxewbuqb Hospital Comment on above:Performed By: #### [id number], [id number] #### [facility] (DEFAULT) [address] [place] [address] 43007Jlkhxlpx mean volume (Bld) [Entitic vol]10.3 fLHigh 6.3-10.2MSalem City HospitalComment on above:Performed By: #### [id number], [id number] #### [facility] (DEFAULT) [address] [place] [address] 34637Riwhpydvh (Bld) [#/Vol]199 s49Awyrpo030-957Kljewzke HospitalComment on above:Performed By: #### [id number], [id number] #### [facility] (DEFAULT) [address] [place] [address] 50844XWB (Bld) [#/Vol]4.47 e20Ffkfeu2.70-5.30[facility] Comment on above:Performed By: #### [id number], [id number] #### [facility] (DEFAULT) [address] [place] [address] 51757GKS (Bld) [#/Vol]5.1 o65Cpiati0.5-10.5[facility] Comment on above:Performed By: #### [id number], [id number] #### [facility] ([facility]) [address] [place] [address] Vital Signs Date TimeVital SignValuePerforming PkxqhuohqKiyopiwc31-86-3176 12:46-0400Body vzyeop832.56 cmLatrell Jack MD Work Phone: 1(666)[address] [place], [place] 62[address]10-30-2025 12:46-0400 Body mass index (BMI) [Ratio]38.9 kg/m2Latrell Jack MD Work Phone: 1(785)[address] [place], [place] 62[address]10-30-2025 12:46-0400 Body vxnnzy708.96 kgLatrell Jack MD Work Phone: 1(305)[address] [place], [place] [address]10-30-2025 12:46-0400 Diastolic blood mm[Hg]Latrell Jack MD Work Phone: 1(461)[address] [place], [place] 62[address]10-30-2025 12:46-0400 Heart rate65 /minLatrell Jack MD Work Phone: 1(647)[address] [place], [place] 62[address]10-30-2025 12:46-0400 Systolic blood kashayqs171 mm[Hg]Latrell Jack MD Work Phone: 1(634)[address] [place], [place] 62[address]10-21-2025 13:20-0400 Body ptcqyv413.56 cmLatrell Jack MD Work Phone: 1(520)[address] [place], [place] 62[address]10-21-2025 13:20-0400 Body mass index (BMI) [Ratio]38.9 kg/m2Latrell Jack MD Work Phone: 1(551)[address] [place], [place] 62[address]10-21-2025 13:20-0400 Body nquefhacgpo51.1 [degF]Latrell Jack MD Work Phone: 1(785)[address] [place], [place] 62[address]10-21-2025 13:20-0400 Body lssqil419.96 kgLatrell Jack MD Work Phone: 1(012)[address] [place], [place] 62[address]10-21-2025 13:20-0400 Diastolic blood owymcswy45 mm[Hg]Latrell Jack MD Work Phone: 1(360)[address]10-21-2025 13:20-0400 Heart rate96 /minLatrell Jack MD Work Phone: 1(001)[address]10-21-2025 13:20-0400 Respiratory rate20 /minLatrell Jack MD Work Phone: 1(812)[address] [place], [place] 62[address]10-21-2025 13:20-0400 SaO2% (BldA) [Mass fraction]96 %Latrell Jack MD Work Phone: 1(438)[address] [place], [place] 3919210-21-2025 13:20-0400 Systolic blood ynlwortg103 mm[Hg]Latrell Jack MD Work Phone: 1(563)[address] [place], [place] 6220410-16-2025 11:06-0400 Body aacqnr379.56 cmLatrell Jack MD Work Phone: 1(130)[address] [place], [place] 6220410-16-2025 11:06-0400 Body mass index (BMI) [Ratio]39.3 kg/m2Latrell Jack MD Work Phone: 1(718)[address] [place], [place] 6220410-16-2025 11:06-0400 Body zyfhao505 kgLatrell Jack MD Work Phone: 1(708)[address] [place], [place] 62[address]10-02-2025 11:46-0400 Body gliygq975.56 cmLatrell Jack MD Work Phone: 1(648)[address] [place], [place] 6220410-02-2025 11:46-0400 Body mass index (BMI) [Ratio]39.4 kg/m2Latrell Jack MD Work Phone: 1(420)[address]10-02-2025 11:46-0400 Body wutixppscii33.1 [degF]Latrell Jack MD Work Phone: 1(060)[address] [place], [place] 3919210-02-2025 11:46-0400 Body .32 kgLatrell Jack MD Work Phone: 1(652)326-[address] [place], [place] 974[address]10-02-2025 11:46-0400 Diastolic blood wykhiess49 mm[Hg]Latrell Jack MD Work Phone: 1(828)[address]10-02-2025 11:46-0400 Heart rqwb759 /minLatrell Jack MD Work Phone: 1(616)[address]10-02-2025 11:46-0400 Respiratory rate24 /minLatrell Jack MD Work Phone: 1(478)[address]10-02-2025 11:46-0400 SaO2% (BldA) [Mass fraction]99 %Latrell Jack MD Work Phone: 1(322)[address]10-02-2025 11:46-0400 Systolic blood ezldhxdy641 mm[Hg]Latrell Jack MD Work Phone: 1(805)[address]08-18-2025 11:00-0400 Body nwficp505 cmLatrell Jack MD Work Phone: [facility] HospitalUhtlbnldhj40-45-7220 11:00-0400Body mass index (BMI) [Ratio]40.03 kg/m2Latrell Jack MD Work Phone: [facility] HospitalGcfahblgca71-83-4327 11:00-0400Body temperature 97.11 [degF]Latrell Jack MD Work Phone: [facility] HospitalTtcfmevtrd24-85-9198 11:00-0400Body kntocm111.51 kgLatrell Jack MD Work Phone: [place] [address]Hmtroicpkr23-73-7058 11:00-0400Diastolic blood tbvlbahz73 mm[Hg]Latrell Jack MD Work Phone: [place] [address]Yuymbxrpym90-97-2512 11:00-0400Heart vqmk464 /min Latrell Jack MD Work Phone: [place] [address]Xoenqxplku56-70-4812 11:00-0400Respiratory rate22 /minLatrell Jack MD Work Phone: [facility] HospitalFbrpgdbcro89-02-8017 11:00-2044NqE4% (BldA) [Mass fraction]95 %Latrell Jack MD Work Phone: [facility] HospitalKtxztljtkj50-16-7223 11:00-0400Systolic blood fjdxogkw204 mm[Hg]Latrell Jack MD Work Phone: 1(931)[address] [place], [place] [address]Nmhtcdknhc74-71-0372 15:56-0400Body gpoxkd202.02 cmLatrell Jack MD Work Phone: 1(674)[address] [place], [place] 6220407-28-2025 15:56-0400 Body mass index (BMI) [Ratio]38.4 kg/m2Latrell Jack MD Work Phone: 1(462)[address] [place], [place] 6220407-28-2025 15:56-0400 Body viulju84.42 kgLatrell Jack MD Work Phone: 1(202)[address] [place], [place] 6220407-28-2025 15:56-0400 Diastolic blood tsfiipqx20 mm[Hg]Latrell Jakc MD Work Phone: 1(037)[address] [place], [place] 6220407-28-2025 15:56-0400 Heart rate90 /minLatrell Jack MD Work Phone: 1(193)[address] [place], [place] 6220407-28-2025 15:56-0400 SaO2% (BldA) [Mass fraction]92 %Latrell Jack MD Work Phone: 1(724)[address]07-28-2025 15:56-0400 Systolic blood cappnmhd040 mm[Hg]Latrell Jack MD Work Phone: 1(527)[address]06-09-2025 15:53-0400 Body eggbsqmmefa43.2 [degF]Latrell Jack MD Work Phone: 1(728)[address]06-09-2025 15:53-0400 Heart rate84 /minLatrell Jack MD Work Phone: 1(068)[address]06-09-2025 15:53-0400 Respiratory rate18 /minLatrell Jack MD Work Phone: 1(079)[address]06-09-2025 15:53-0400 SaO2% (BldA) [Mass fraction]99 %Latrell Jack MD Work Phone: 1(671)[address]06-09-2025 14:15-0400 Diastolic blood mm[Hg]Latrell Jack MD Work Phone: 1(025)[address]06-09-2025 14:15-0400 Systolic blood bbvpubet515 mm[Hg]Latrell Jack MD Work Phone: 1(967)[address]06-09-2025 09:00-0400 Body nyavzf257.3 kgLatrell Jack MD Work Phone: 1(340)[address]06-06-2025 14:41-0400 Body qlsiuj090.02 cmLatrell Jack MD Work Phone: 1(858)[address]05-28-2025 13:39-0400 Body ljzioj902 cmLatrell Jack MD Work Phone: [facility] HospitalLzxqcnagdd22-20-1379 13:39-0400Body mass index (BMI) [Ratio]38.97 kg/m2Latrell Jack MD Work Phone: [facility] HospitalMoztnsjdga85-92-0765 13:39-0400Body temperature 97.3 [degF]Latrell Jack MD Work Phone: [facility] HospitalPapgayqyju33-65-1912 13:39-0400Body iulzze73.79 kgLatrell Jack MD Work Phone: [facility] HospitalErysvzcliy35-15-3609 13:39-0400Diastolic blood kycqhdmy63 mm[Hg]Latrell Jack MD Work Phone: [facility] HospitalYyycculrfv43-01-4564 13:39-0400Heart rate97 /min Latrell Jack MD Work Phone: [facility] HospitalAaghnvgoqz94-04-8158 13:39-0400Respiratory rate22 /minLatrell Jack MD Work Phone: [facility] HospitalEjrmsswwfk78-20-9585 13:39-2047ZdM3% (BldA) [Mass fraction]97 %Latrell Jack MD Work Phone: [facility] HospitalStdzprjggs99-68-6773 13:39-0400Systolic blood pyfhrjdj717 mm[Hg]Latrell Jack MD Work Phone: [facility] HospitalLdekqumkrn49-01-4241 10:25-0500Body ywxomp783 cm Latrell Jack MD Work Phone: [phone] [place], [place] [address]Nrexenhrup41-81-1067 10:25-0500Body mass index (BMI) [Ratio]36.14 kg/m2Latrell Jack MD Work Phone: [facility] HospitalZasajaasvr49-97-1989 10:25-0500Body temperature 95.9 [degF]Latrell Jack MD Work Phone: [facility] HospitalXwubbwixkn32-74-2889 10:25-0500Body hekltk74.53 kgLatrell Jack MD Work Phone: [facility] HospitalGrjktlxcsk01-84-4894 10:25-0500Diastolic blood dompwwfx87 mm[Hg]Latrell Jack MD Work Phone: [facility] HospitalHrhrqnfzlo79-29-3163 10:25-0500Heart rate50 /min Latrell Jack MD Work Phone: [facility] HospitalXxvdvattht65-27-6940 10:25-0500Respiratory rate22 /minLatrell Jack MD Work Phone: [facility] HospitalKuhywayiex59-47-2441 10:25-0309YcL3% (BldA) [Mass fraction]97 %Latrell Jack MD Work Phone: [facility] HospitalZxqjnixqst73-16-8057 10:25-0500Systolic blood ksvhychr194 mm[Hg]Latrell Jack MD Work Phone: [facility] HospitalSkhhptgifn80-94-0567 14:04-0500Body llbuxp685.6 [facility] NEWSPAPER PUBLISHER.ROTOR CASTING MACHINE OPERATOR Work Phone: [phone]01-29-2025 14:04-0500Body mass index (BMI) [Ratio]34.84 kg/o3PejtthrpColusa Regional Medical Center NEWSPAPER PUBLISHER.ROTOR CASTING MACHINE OPERATOR Work Phone: [phone]01-29-2025 14:04-0500Body temperature 97.59 [degF][facility] NEWSPAPER PUBLISHER.ROTOR CASTING MACHINE OPERATOR Work Phone: [phone]01-29-2025 14:04-0500Body wqizat09.08 kgCol[facility] NEWSPAPER PUBLISHER.ROTOR CASTING MACHINE OPERATOR Work Phone: [phone]01-29-2025 14:04-0500Diastolic blood lekpruws24 mm[Hg][facility] NEWSPAPER PUBLISHER.ROTOR CASTING MACHINE OPERATOR Work Phone: [phone]01-29-2025 14:04-0500Heart rate75 /min [facility] NEWSPAPER PUBLISHER.ROTOR CASTING MACHINE OPERATOR Work Phone: [phone]01-29-2025 14:04-0500Systolic blood extnoojj642 mm[Hg][facility] NEWSPAPER PUBLISHER.ROTOR CASTING MACHINE OPERATOR Work Phone: [phone]01-14-2025 12:49-0500Body cm [facility] 5 Work Phone: [phone]01-14-2025 12:49-0500Body mass index (BMI) [Ratio]37.45 kg/m2[facility] 5 Work Phone: [phone]01-14-2025 12:49-0500Body temperature 98.01 [degF]Pac 5 Work Phone: [phone]01-14-2025 12:49-0500Body pdjpuj60.9 kgPacc 5 Work Phone: [phone]01-14-2025 12:49-0500Diastolic blood gstowvkr13 mm[Hg]Pac 5 Work Phone: [facility]01-14-2025 12:49-0500Heart rate77 /min Pacc 5 Work Phone: [facility]01-14-2025 12:49-0500Respiratory rate 20 /minPacc 5 Work Phone: [facility]01-14-2025 12:49-8783KgK9% (BldA) [Mass fraction]99 %Pacc 5 Work Phone: [facility]01-14-2025 12:49-0500Systolic blood mm[Hg]Pacc 5 Work Phone: [facility]11-21-2024 15:36-0500Body lxdhio113 cm Sandra Arcos DRAFTER GEOPHYSICAL Work Phone: [facility] HospitalEippbspvuv66-36-6714 15:36-0500Body mass index (BMI) [Ratio]38.26 kg/h7ZhvbbuSandra Arcos DRAFTER GEOPHYSICAL Work Phone: [place] [address]Kbaclzvdmj65-19-9933 15:36-0500Body .98 kgSandra Arcos DRAFTER GEOPHYSICAL Work Phone: [place]Jeff[place] [address]Twewmjwuob28-22-1514 15:36-0500Diastolic blood mssjtlgi32 mm[Hg]Sandra Arcos DRAFTER GEOPHYSICAL Work Phone: [place]Jeff[place] [address]Mwlsjvzacy80-63-6928 15:36-0500Systolic blood mhilmvli355 mm[Hg]Sandra Arcos DRAFTER GEOPHYSICAL Work Phone: [place] [address]Nkgblixrpy99-94-7833 10:02-0500Body ezrxvw715 cm Latrell Jack MD Work Phone: [place] [address]Skdzmhgjdy61-84-9786 10:02-0500Body mass index (BMI) [Ratio]38.26 kg/m2Latrell Jack MD Work Phone: [facility] HospitalFosxmtrlcq57-85-2537 10:02-0500Body temperature 97.11 [degF]Latrell Jack MD Work Phone: [place] [address]Zsyxgdjstq74-94-5340 10:02-0500Body .98 kgLatrell Jack MD Work Phone: [facility] HospitalSnilamtswq10-62-8710 10:02-0500Diastolic blood tlnlulkt84 mm[Hg]Latrell Jack MD Work Phone: [facility] HospitalGdcdeqabph11-56-3040 10:02-0500Heart rate78 /min Latrell Jack MD Work Phone: [place] [address]Xsaqeprimb00-60-0223 10:02-0500Respiratory rate22 /minLatrell Jack MD Work Phone: [place] [address]Wyjtajobxi93-57-9571 10:02-8491CtE6% (BldA) [Mass fraction]97 %Latrell Jack MD Work Phone: [facility] HospitalBdjgqbvlau61-52-1553 10:02-0500Systolic blood hfjdladw358 mm[Hg]Latrell Jack MD Work Phone: [facility] HospitalVgoasnbsov91-34-7681 10:55-0400Body .4 Marco A Boyd MD Work Phone: IMercy [facility]rbana HospitalHofdiy81-92-6229 10:55-0400Body mass index (BMI) [Ratio]42.58 kg/m6IfnmpXavier Boyd MD Work Phone: [place] Vzuwqs90-76-6760 10:55-0400Body temperature 98.49 [degF]Xavier Boyd MD Work Phone: X[facility] hospitaland Kjuqgz83-63-8721 10:55-0400Body olhrvg46.88 kgXavier Boyd MD Work Phone: [place] Yngvfn03-70-5213 10:55-0400Diastolic blood tstvudbb97 mm[Hg]Xavier Boyd MD Work Phone: [place] Tfkntb46-69-7950 10:55-0400Heart rate90 /min Xavier Boyd MD Work Phone: [place] Ijtbiz20-92-9774 10:55-0400Systolic blood phusgikc881 mm[Hg]Xavier Boyd MD Work Phone: cMer[facility]rbana HospitalHitgpy43-85-3511 13:23-0400Diastolic blood mm[Hg]Wilson Sarmini [address] [place], [place] 2181409-11-2024 13:23-0400Heart rate66 /minMuhammad Sarmini [address] [place], [place] 2181409-11-2024 13:23-0400Mean blood hzxkeqzn736 mm[Hg]Wilson Sarmini [address] [place], [place] 2181409-11-2024 13:23-0400 Respiratory rate15 /minMuhammad Sarmini [address] [place], [place] 2181409-11-2024 13:23-5518NqL5% (BldA) [Mass fraction]94 %Wilson Sarmini [address] [place], [place] 2181409-11-2024 13:23-0400 Systolic blood xowgqoxp569 mm[Hg]Wilson Sarmini [address] [place], [place] 2181409-11-2024 13:15-0400 Diastolic blood wajvbutr77 mm[Hg]Wilson Sarmini [address] [place], [place] 2181409-11-2024 13:15-0400Heart rate64 /minMuhammad Sarmini [address] [place], [place] 2181409-11-2024 13:15-0400Mean blood kyribsvs830 mm[Hg]Wilson Sarmini [address] [place], [place] 2181409-11-2024 13:15-0400 Respiratory rate13 /minMuhammad Sarmini [address] [place], [place] 2181409-11-2024 13:15-6995XkB3% (BldA) [Mass fraction]96 %Wilson Sarmini [facility]09-11-2024 13:15-0400 Systolic blood ihkclylv136 mm[Hg]Wilson Sarmini [facility]09-11-2024 13:05-0400 Diastolic blood meodxfjn32 mm[Hg]Wilson Sarmini [address] [place], [place] 2181409-11-2024 13:05-0400Heart rate64 /minMuhammad Sarmini [address] [place], [place] 2181409-11-2024 13:05-0400Mean blood ksycmgdm63 mm[Hg]Wilson Sarmini [facility]09-11-2024 13:05-0400 Respiratory rate12 /minMuhammad Sarmini [address] [place], [place] 2181409-11-2024 13:05-6734IrF4% (BldA) [Mass fraction]96 %Wilson Sarmini [facility]09-11-2024 13:05-0400 Systolic blood hfpeokxn568 mm[Hg]Wilson Sarmini [facility]09-11-2024 12:58-0400Body fuqjjhbfhwh19.16 [degF]Wilson Sarmini [address] [place], [place] 2181409-11-2024 12:50-0400 Respiratory rate15 /minMuhammad Sarmini [address] [place], [place] 2181409-11-2024 12:45-0400 Respiratory rate18 /minMuhammad Sarmini [facility]09-11-2024 11:14-0400Blood Pressure LocationMuhammad Sarmini [facility]09-11-2024 11:14-0400Body cfttmrplqny30.7 [degF]Wilson Sarmini [facility]09-11-2024 11:14-0400 Respiratory rate18 /minMuhammad Sarmini [facility]08-29-2024 11:21-0400Body dxirxw255 cmNicole Amilcar DO Work Phone: [facility] HospitalPtrjaehdyq06-82-9222 11:21-0400Body mass index (BMI) [Ratio]44.46 kg/e3Nerkbl Amilcar DO Work Phone: [facility] HospitalAcblinokfe89-29-6570 11:21-040Body dogxhc532.85 kgNicole Amilcar DO Work Phone: [facility] HospitalFsjoxhzqyg17-23-0379 11:21-0400Diastolic blood aqacfyvp98 mm[Hg]Diomedes Amilcar DO Work Phone: [facility] HospitalZijkneaqxj56-13-5193 11:21-0400Heart rate84 /min Diomedes Amilcar DO Work Phone: [place] [phone] 11:21-2811KyC9% (BldA) [Mass fraction]94 %Diomedes Amilcar DO Work Phone: [facility] HospitalXssqmccgtb58-90-6857 11:21-0400Systolic blood qnfenowv930 mm[Hg]Diomedes Amilcar DO Work Phone: [place] [address]Bfhdqjgcls58-22-8098 09:12-0400Blood Pressure LocationMuhammad Sarmini [phone]-[facility]weHol[facility] Hmhbll40-47-8876 09:12-0400Diastolic blood njrzwyhl91 mm[Hg]Wilson Sarmini [phone]-CzytsHolzer Hospital Digestive Cvlkqt12-33-8126 09:12-0400Heart rate66 /minMuhammad Sarmini [phone]-SkqnvHolzer Health System08-19-2024 09:12-0400Respiratory rate16 /minMuhamserenad Ameyamini 999-3828Fozzed-CsuuiHolzer Health System08-19-2024 09:12-0400Systolic blood xsnhxkga934 mm[Hg]Dafne Houmini 923-0550Ruwpdk-BmipgHolzer Health System04-05-2024 09:42-0400Diastolic blood jriphafe01 mm[Hg]Pa NILL [facility]04-05-2024 09:42-0400Heart rate69 /minMichael NILL [facility]04-05-2024 09:42-0400Mean blood gfjydqbr998 mm[Hg]Pa NILL [facility]04-05-2024 09:42-0400 Respiratory rate15 /minMichael NILL [facility]04-05-2024 09:42-5446ZoR2% (BldA) [Mass fraction]97 %Pa NILL [facility]04-05-2024 09:42-0400 Systolic blood grawylzg313 mm[Hg]Pa NILL [facility]04-05-2024 09:32-0400 Diastolic blood qhlyysim16 mm[Hg]Pa NILL [facility]04-05-2024 09:32-0400Heart rate67 /minMichael NILL [facility]04-05-2024 09:32-0400Mean blood negqptfu24 mm[Hg]Pa NILL [facility]04-05-2024 09:32-0400 Respiratory rate20 /minMichael NILL [facility]04-05-2024 09:32-4641ZkY5% (BldA) [Mass fraction]95 %Pa PALMERL [facility]04-05-2024 09:32-0400 Systolic blood xyocbpbh031 mm[Hg]Pa NILL [facility]04-05-2024 09:27-0400 Diastolic blood jfqnuwzu57 mm[Hg]Pa PALMERL [facility]04-05-2024 09:27-0400Heart rate70 /minMichael NILL [facility]04-05-2024 09:27-0400Mean blood tnzebutr75 mm[Hg]Pa PALMERL [facility]04-05-2024 09:27-0400 Respiratory rate15 /minMichael NILL [facility]04-05-2024 09:27-2366VwA9% (BldA) [Mass fraction]96 %Pa PALMERL [facility]04-05-2024 09:27-0400 Systolic blood mm[Hg]Pa PALMERL [facility]04-05-2024 09:17-0400Body zakzjqrqkcl87.16 [degF]Pa NILL [facility]04-05-2024 09:10-0400 Respiratory rate16 /minMichael NILL [facility]04-05-2024 09:05-0400 Respiratory rate16 /minMichael NILL [facility]04-05-2024 08:03-0400Body wkcrzuamfqn04.34 [degF]Pa PALMEREmily [facility]02-02-2024 09:53-0500Body uupxsz291 cmLatrell Jack MD Work Phone: [facility] HospitalHbmahdvfcb14-60-1459 09:53-0500Body mass index (BMI) [Ratio]40.39 kg/m2Latrell Jack MD Work Phone: [facility] HospitalSagmnaibdx43-52-8006 09:53-0500Body temperature 97.11 [degF]Latrell Jack MD Work Phone: noSaint [facility] HospitalCnokegilht23-83-1409 09:53-0500Body jmitgn331.42 kgLatrell Jack MD Work Phone: noSaint [facility] HospitalQzgdvkbasn46-72-0162 09:53-0500Diastolic blood fyovxiok96 mm[Hg]Latrell Jack MD Work Phone: [facility] HospitalChxqwgntji61-90-5530 09:53-0500Heart rate94 /min Latrell Jack MD Work Phone: noSaint [facility] HospitalOkopvfobfi36-91-8512 09:53-4007FdJ9% (BldA) [Mass fraction]97 %Latrell Jack MD Work Phone: noSaint [facility] East HospitalUoyzenfbub20-51-2239 09:53-0500Systolic blood jluoygtd927 mm[Hg]Latrell Jack MD Work Phone: no[facility] Encounters Encounter DateEncounter TypeCare ProviderFacilityStart: 05-08-2025 End: 42-35-3451ghknisnqtsWaem Naderer MD Work Phone: -[facility] BellevueStart: 05-08-2025 End: 58-13-4845Ogopweu encounter Monique Palacio NEWSPAPER PUBLISHER-[facility] [place] Work Phone: Start: 04-29-2025 End: 02-97-9179rfnhwghrzpNplk Naderer MD Work Phone: -[facility] ClydeStart: 04-29-2025 End: 97-20-2026Rxuvhzg encounter procedureLatrell Jack MDDO[facility] [place] Work Phone: Start: 04-28-2025 End: 59-82-8723ogfkzdrqvuMwpfitj Vytautas Giedraitis MDFacility:PM [place] Start: 04-24-2025 End: 00-79-9857pvnaqzvicpYvdt Naderer MD Work Phone: [facility] Work Phone: Start: 04-24-2025 End: 78-94-8005Pginnkz encounter procedureElmer Suh [facility] [place] Work Phone: Start: 17-49-3312Madsvbyzda Alfredito Kim MDUNIVERSITY OF WASHINGTON [facility] CredibleStart: 65-86-9096rulkcaonlnGtqxoyviuyz Abdelaziz [facility]tart: 04-23-2025 End: 27-28-1060kliimjtklaCXYIZVDI MILESFacility:[facility] Centertart: 04-10-2025 End: 18-59-8073kakwuvupklRbqb Naderer MD Work Phone: [facility] Work Phone: Start: 04-10-2025 End: 13-97-9083Vxemerd encounter procedureLatrell Jack MDDO[facility]ORS[facility] [place] Work Phone: Start: 03-04-2025 End: 37-58-3831Pjsdfvltw Result EncounterLatrell Jack MD Work Phone: noms External Department UnsolicitedStart: 03-04-2025 End: 99-51-6566Wecbvbnuw Result EncounterLatrell Jack MD Work Phone: noms External Department UnsolicitedStart: 02-27-2025 End: 16-54-1671Malxavxoq Result EncounterLatrell Jack MD Work Phone: noms External Department UnsolicitedStart: 02-27-2025 End: 26-22-1190Ugqpgginr Result EncounterLatrell Jack MD Work Phone: noms External Department UnsolicitedStart: 02-24-2025 End: 72-04-0138Vxpdia flowsRonald Jack MD Work Phone: noms CWM FMStart: 02-24-2025 End: 26-55-1061Qmnrsj flowsRonald Jack MD Work Phone: [facility]oms CWM FMStart: 02-24-2025 End: 81-18-6889Mzbptb outpatient visit 25 minutesLatrell Jack MD Work Phone: noms CW FMComment on above:Essential hypertension, benign (Primary Dx); Chronic obstructive pulmonary disease, unspecified COPD type (HCC); Primary insomnia; Primary osteoarthritis of both knees; Breast cancer screening by mammogram; Former smokerStart: 02-24-2025 End: 14-20-5406nwsdsmnzzfXQYT NADERERNot AvailableStart: 02-03-2025 End: 37-00-4667vtzwchneugCukp Naderer MD Work Phone: [facility] Work Phone: Start: 02-03-2025 End: 85-30-5506Tihjwlg encounter procedureNiclucila Fitzgerald DO-[facility] [place] Work Phone: Start: 80-32-9465Lzqkueresp RecurringErik Kim MDUNIVERSITY OF WASHINGTON [facility] CredibleStart: 12-30-2024 End: 90-72-7622sxtfgueardFdjsqvb Vytautas Giedraitis MDFacility:[facility] [place] Start: 79-56-8497Xff-patient / Non-visitLatrell Jack MD Work Phone: [facility] Work Phone: Start: 12-12-2024 End: 03-61-5635Pcwpoimmgr and management of inpatientLatrell Jack MD Work Phone: [facility] Work Phone: Start: 12-12-2024 End: 29-43-7050Zlmekkvzr Result EncounterGeneric External Data ProviderNOMS External Department UnsolicitedStart: 12-12-2024 End: 27-75-6098Huyzcotdx Result EncounterGeneric External Data ProviderNOMS External Department UnsolicitedStart: 12-12-2024 End: 39-80-8675Rdrnkuaxe department patient visitCrescenciodean PalacioMichelle KohliFacility:[facility] Start: 12-04-2024 End: 51-59-0194Pmmqpp outpatient visit 15 minutesLatrell Jack MD Work Phone: noms CWM FMComment on above:Degenerative lumbar spinal stenosis (Primary Dx); Chronic obstructive pulmonary disease, unspecified COPD type (CMS/HCC)Start: 12-04-2024 End: 23-20-7582hgrcknekteWJKF NADERERNot AvailableStart: 10-30-2024 End: 57-37-3315PwcasgGpnk Naderer MD Work Phone: noms CWM FMComment on above:Primary insomnia; Chronic obstructive pulmonary disease, unspecified COPD type (CMS/HCC)Start: 10-29-2024 End: 22-13-9341YeioycRzqd Naderer MD Work Phone: noms CWM FMComment on above:Chronic obstructive pulmonary disease, unspecified COPD type (CMS/HCC); Primary insomniaStart: 09-26-2024 End: 72-22-7409yyupgctrpsAITVDO GILLMORNot AvailableStart: 08-27-2024 End: 76-88-0146Njxfak Audrey Jack MD Work Phone: noms CWM FMStart: 08-27-2024 End: 32-86-9078Wvkgku Audrey Jack MD Work Phone: noms CWM FMStart: 08-27-2024 End: 42-94-3236Wvorgaacv Result EncounterLatrell Jack MD Work Phone: noms External Department UnsolicitedStart: 08-27-2024 End: 39-73-9193zfjvcfitcwXLKI NADERERNot AvailableStart: 08-27-2024 End: 54-95-3782Fkcbydx encounter procedureLatrell Jack MD Work Phone: [facility] Work Phone: Start: 08-27-2024 End: 61-59-9900Lmlbgl follow up visit related to original Carline [...] type (CMS/HCC); 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CMS/HCC)Start: 08-07-2024 End: 34-57-8089Okrvcru encounter procedureKatarzyna Snyder APRN.CNP Work Phone: General SurgeryComment on above:Postoperative visit (Primary Dx)Start: 08-07-2024 End: 09-48-6070cdfnijydanPRWDPJVX MILESFacility:[facility] Centertart: 07-31-2024 End: 79-97-8225Paffhkpdj encounterLatrell Jack MD Work Phone: noms CWM FMStart: 07-30-2024 End: 46-69-2890LxsiafDszj Naderer MD Work Phone: noms CWM FMComment on above:Primary insomniaStart: 07-24-2024 End: 12-24-1474Veaiqmqkxw and management of inpatientLUCAS GRETCHEN BOYD Facility:[facility] Centertart: 07-23-2024 End: 16-65-5090grtwzpmavzIDSRL STEINKENFacility:[facility] Centertart: 07-23-2024 End: 49-54-7458Ccqlkoxxo Result EncounterGeneric External Data ProviderNOMS External Department UnsolicitedStart: 07-23-2024 End: 39-09-8066Bripfwofc Result EncounterGeneric External Data ProviderNOMS External Department UnsolicitedStart: 07-23-2024 End: 39-94-7732Ribyopnmra hospital visit by physicianXr Chest Main G68Dwowgafzu Comment on above:Pre-op evaluation [Z01.818]Start: 07-23-2024 End: 32-06-5774Fiyfqbhqh to establishmentKevin [place] [address] Work Phone: pre AnesthesiaStart: 07-23-2024 End: 11-22-2523Envqhhkgey consultationKevin V[place] [address] Work Phone: pre AnesthesiaComment on above:Pre-op evaluation [...] back pain laterality; Primary insomniaStart: 07-23-2024 End: 91-21-8694Jsczengjwncpe examination [place] [address] Work Phone: [facility] Work Phone: Start: 42-43-1519Aehttszcr for other preprocedural examinationLUCAS [facility] HospitalStart: 07-23-2024 End: 57-94-9411xtnluhrchcRNZWQ RANDALL ANTON BEFFAFacility:[facility] Centertart: 69-40-6772Gskpkvymk for other preprocedural examinationLUCAS [facility] HospitalStart: 06-29-2024 End: 90-75-6600Ocaidrpab Julia Arcos NP Work Phone: [facility] [place] [facility] R[facility]TEStart: 06-24-2024 End: 27-66-5732qlfaaqczuyIfpatpjMichelle Arguello MDFacility:[facility] [place] Start: 06-13-2024 End: 94-25-3762Riqpgstgh encounterLatrell Jack MD Work Phone: noms CWM FMComment on above:Medication QuestionStart: 06-10-2024 End: 32-22-9617pxmlbjasoaUjfpuyxMichelle Arguello MDFacility:[facility] [place] Start: 05-30-2024 End: 55-44-5100Mllugp outpatient visit 25 minutesSandra Arcos DRAFTER GEOPHYSICAL Work Phone: noms [facility] ROUTEComment on above:Memory loss (Primary Dx); Severe episode of recurrent major depressive disorder, 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); Generalized anxiety disorder (CMS/HCC); EDWIN on CPAP; Other chronic pain; Other insomniaStart: 05-30-2024 End: 75-56-2458chunonhyhwISPWGR GILLMORNot AvailableStart: 05-30-2024 End: 41-46-0336Ymagfl Marcellus Arcos DRAFTER GEOPHYSICAL Work Phone: noms [facility] ROUTEStart: 05-30-2024 End: 16-87-9896Qlqnrc Marcellus Arcos DRAFTER GEOPHYSICAL Work Phone: noms [facility] ROUTEStart: 05-27-2024 End: 52-57-8438muqboxmivsWbymcacMichelle Arguello MDFacility:[facility] [place] Start: 05-15-2024 End: 39-26-7555Mptxix outpatient visit 25 minutesLatrell Jack MD Work [...] index (BMI) of38.0 to 38.9 in adult ([facility]/HCC)Start: 05-15-2024 End: 03-74-4908cvyvdlnviwZDIT NADERERNot AvailableStart: 05-06-2024 End: 83-82-6333ijpwokxvhxMgenovx Vytautas Giedraitis MDFacility:[facility] [place] Start: 05-04-2024 End: 15-70-9918zzyqszcwqaTuvxrXavier Boyd MD Work Phone: digestive Disease InstComment on above:07.24.24 Cure (Lap Paraesophageal Hernia Repair/EGD 4 hours los 1)Start: 05-04-2024 End: 50-72-1775Zatagktfojwdq examination doneXavier Boyd MD Work Phone: [facility] ClinicStart: 04-29-2024 End: 28-81-3174rncriqrunhFETWH RANDALL ANTON BEFFAFacility:[facility] Centertart: 04-29-2024 End: 51-56-7419Nltatz outpatient new 45 minutesXavier Boyd MD Work Phone: General SurgeryComment on above:Paraesophageal hernia (Primary Dx)Start: 04-22-2024 End: 88-50-5089Cvdsjljye Result EncounterGeneric External Data ProviderNOMS External Department UnsolicitedStart: 04-22-2024 End: 90-35-5865Yyhkufsan Result EncounterGeneric External Data ProviderNOMS External Department UnsolicitedStart: 04-22-2024 End: 77-57-8831Zijmmvewc encounterMisty Warwick MAGeneral SurgeryStart: 04-11-2024 End: 07-57-4380Grvqalx encounter procedureMao Morrow PhD Work Phone: NOEG NEUROLOGYComment on above:Memory loss (Primary Dx); Word finding difficulty; EDWIN on CPAP; Other insomnia; Other chronic pain; Generalized anxiety disorder (CMS/HCC); Severe episode of recurrent major depressive disorder, without psychotic features (HCC) ([facility]/HCC)Start: 04-11-2024 End: 58-68-1752rnmtzrzipwRNZS NADERERNot AvailableStart: 04-10-2024 End: 75-67-6633Prxozgmct Result EncounterGeneric External Data ProviderNOMS External Department UnsolicitedStart: 04-10-2024 End: 04-04-4392Vwksaypze Result EncounterGeneric External Data ProviderNOMS External Department UnsolicitedStart: 03-26-2024 End: 21-46-5816Storfkj encounter Dony Morrow PhD Work Phone: noMOBILE [facility] NEUROLOGYComment on above:Memory loss (Primary Dx); Word finding difficulty; EDWIN on CPAP; Other insomnia; Other chronic pain; Generalized anxiety disorder (CMS/HCC)Start: 03-26-2024 End: 99-82-0155nekiqxpgxpGXYXKMQY DENBESTENNot AvailableStart: 03-26-2024 End: 19-23-9604Oidfmx Trevon Morrow PhD Work Phone: noms NEUROLOGYStart: 03-26-2024 End: 41-36-9207Lwikpt Trevon Morrow PhD Work Phone: [facility] NEUROLOGYStart: 03-26-2024 End: 73-55-1977udecimvuccVegfdmbx Talal SarminiFacility:[facility]MCStart: 03-26-2024 End: 84-64-9823Ijkxsmd encounter procedureMuhammad Talal Sarmini [facility] Start: 03-25-2024 End: 51-85-5522ugrivadnnsMEOMTB DANNERNot AvailableStart: 03-20-2024 End: 08-89-2544ewzquulbjoAbctafvl Talal SarminiFacility:[facility]MCStart: 03-20-2024 End: 33-54-9490Ifizvwt encounter procedureMuhammad Talal Sarmini [facility] Start: 03-15-2024 End: 57-74-5616Vvxhxodir Result EncounterNicole Amilcar DO Other Phone: [facility] External Department UnsolicitedStart: 03-15-2024 End: 63-23-4268Wwxazxcho Result EncounterNicole Amilcar DO Other Phone: [facility] External Department UnsolicitedStart: 03-07-2024 End: 42-39-9383Tdiqce flowsheetNicole Amilcar DO Work Phone: [facility]Start: 03-07-2024 End: 65-99-3865Gerbnc flowsheetNicole Amilcar DO Work Phone: [facility] [facility]Start: 03-07-2024 End: 15-65-8530Nrtzpgnii Result EncounterNicole Amilcar DO Work Phone: [facility] External Department UnsolicitedStart: 03-07-2024 End: 31-71-9657Dfdofv outpatient visit 40 minutesNicole Amilcar DO Work Phone: [facility] [facility]TEComment on above:Memory loss (Primary Dx); 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CMS/HCC); Mild cognitive impairment; EDWIN (obstructive sleep apnea)Start: 03-07-2024 End: 58-28-3375rywtxssrlzWJGLGJ DANNERNot AvailableStart: 02-26-2024 End: 90-22-7118uhtkfwlkofAueivprl Talal SarminiFacility:Bobbi DHStart: 02-26-2024 End: 79-70-5300Srzyzac encounter procedureMuhammad Talal Sarmini [phone]-IkzpqHolzer Hospital [facility] Start: 22-87-5931bgpaoascrwYcxtkoq NILLFacility:Zoraida Brantley DHStart: 11-28-2023 End: 88-89-8643Nhuucwbnb Result Latrice Jack MD Work Phone: noms External Department UnsolicitedStart: 11-28-2023 End: 39-88-7133Azeuyokks Result Latrice Jack MD Work Phone: noms External Department UnsolicitedStart: 10-13-2023 End: 87-34-9744unhjqwvokvIxtrxgx R NILLFacility:FTMCStart: 10-13-2023 End: 93-89-6294Jepuxny encounter procedureMichael R NILL [facility] Start: 09-12-2023 End: 25-83-2761scrqiehbpxSdrxctn R NILLFacility: NorwalkStart: 09-05-2023 ambulatoryMichael NILLFacility: EnakStart: 91-21-1586Twciux flowsRonald Jack MD Work Phone: noms CWM FMStart: 91-09-4900Jomaoa flowsheetLatrell Jack MD Work Phone: noms CWM FMStart: 08-11-2023 End: 19-06-3780Ytqull outpatient visit 25 minutesMareli Jack MD Work [...] index [BMI] 40.0-44.9, adult (Z68.41)Start: 07-28-2022 End: 15-00-3338kqhxxrereyNK LATRELL A NADERERFacility:I2Hpsse: 02-22-2022 End: 63-97-6664evoopitnstAP SHANKAR HAYFacility:W9Lubdq: 11-11-2021 End: 97-78-7902ftuarbytbxOC LATRELL A NADERERFacility:W3Zkwag: 11-02-2021 End: 34-06-0322uczknoakwzUB SHANKAR HAYFacility:I7Vvjpq: 09-10-2021 End: 80-55-3366jioeunijsjQJ WILLARD Cárdenas KARANFacility:U3Hgmeo: 27-66-6710Kyfrfnvnk for preprocedural laboratory examinationPETER D [facility] Start: 09-07-2021 End: 70-03-0020rmlgywjoftCO LATRELL Remigio NADERERFacility:X4Axvhz: 09-07-2021 End: 72-47-8856Zpfdpxuzy for preprocedural laboratory examinationDR LATRELL Remigio NADERERFacility:F5Kfyrt: 78-33-0275Bnquzgjbr for preprocedural cardiovascular examinationPETER D [facility] Hospitaltart: 09-02-2021 End: 02-88-3928ctrtbasdieGZ LATRELL Remigio NADERERFacility:U8Xxchj: 09-02-2021 End: 93-08-3585Cjkqvdlvl for preprocedural cardiovascular examinationDR LATRELL Remigio NADERERFacility:H1 Procedures DateProcedureProcedure DetailPerforming ClinicianStart: 40-02-0029NK LUNG SCREENING LOW DOSELatrell Jack MD Work Phone: Start: 43-85-7512LR TOMOSYNTHESIS SCREENING BIMarc Guero OLIVO Work Phone: Start: 27-15-8843FwyuwpmxdgnSnuy Naderer MD Work Phone: Start: 50-88-0485XL HIP LT MIN 2VGeneric External Data ProviderStart: 61-47-2530POI CBC WITH AUTO DIFFLatrell Jack MD Work Phone: Start: 83-62-9049GE CHEST 2V FRONTAL/LATGeneric External Data ProviderStart: 85-31-6784Pjg routine ecg w/least 12 lds w/i&r Generic External Data ProviderStart: 53-34-5164PKO CONFIRM BLOOD TYPEGeneric External Data ProviderStart: 07-23-2024 End: 91-47-9742Llbtalsp screenLUCAS BEFFAComment on above:Order Comment: Specimen Type: BLOOD SPECIMEN Ordering Facility: [facility] Address: [address] [place], [place] [address]Performed By: #### [id number], HSTNT, 14465-5, 2777-1 #### [facility] CLIA [id number] [address] [place] [address] [place] STATES OF AMERICAStart: 59-01-9666EHM CBC W AUTO DIFF BLDGeneric External Data ProviderStart: 02-16-4981URV TYPE AND SCREEN,30 DAYGeneric External Data ProviderStart: 30-37-3542LC LUMBAR SPINE WO CONGeneric External Data ProviderStart: 39-51-8189YJ FOOT RT MIN 3VGeneric External Data ProviderStart: 51-73-6912NwcfhnuvcrzarwacwgykehhcsfNtnyhuxb Sarmini Start: 78-46-9669AN HEAD/BRAIN WO CONNicole Amilcar DO Other Phone: Start: 23-04-9779AFF FOLIC ACIDNicole Amilcar DO Work Phone: Start: 56-79-4049PLZ THYROID STIM HORMONENicole Amilcar DO Work Phone: Start: 68-00-0799XW TOMOSYNTHESIS SCREENING Ranjan Jack MD Work Phone: Start: 31-24-8171NmsefwejmjaCzsaae Amilcar DO Work Phone: Start: 83-97-6209QwquhmnrdxoNrcols Amilcar DO Work Phone: Start: 85-13-6298KpmxsqdjofmVqemloa NILL Hand tendon repairedMichael NILL Open reduction of fracture of ankle with internal fixationMichael NILL Repair of meniscusMichael NILL TonsillectomyMichael NILL Plan of Treatment DateCare ActivityDetailAuthorStart: 38-90-7104Oyhnrghsw for malignant neoplasm of colonNOMS HealthcareStart: 66-94-8562Tqqtwywy ScreeningDiabetes Screening [facility]: 43-85-6849Nzqkugzo ScreeningDiabetes ScreeningKettering Health [facility]: 30-71-3269ORA Vaccine (1 - 1-dose 75+ series)RSV Vaccine (1 - 1- dose 75+ series)[facility]: 34-59-1873Lhfxyjamz for malignant neoplasm of breastMammogramNOMS HealthcareStart: 02-18-2026Medicare Annual Wellness (AWV)Medicare Annual Wellness (AWV)NOMS HealthcareStart: 08-07-2025 End: 14-21-7981CG Chest WO contrastCT CHEST WO IVCON Radiology Routine Postoperative visit Expected: 08/07/2025, Expires: 09/06/2025[facility] Work Phone: Comment on above:Expected: 08/07/2025, Expires: 09/06/2025Start: 06-09-2025 End: 72-74-6080Kihmjsy encounter ikavpjgni37/01/2025 1:10 PM EST Office Visit [facility] [address] [facility] [address] [place] [address] Layla Houston MD [address] [facility] [address] [place] [address] NOMS Shaji OtolaryngologyStart: 06-04-2025 End: 74-01-0249Upnsjke encounter ooiewyptm06/26/2025 3:30 PM EST Office Visit [facility] [address] [place] [address] Sugar Cruz S, AUD [address] [place] [address] NOMLyndon Hernandez AudiologyStart: 04-29-2025 End: 09-42-0871Cntjnqi encounter xrraqogbm62/21/2025 1:15 PM EDT Office Visit [facility] CWHakeem FM [address] [place] [address] Latrell Jack MD [address] [place] [address] NOMS CWM FMStart: 77-42-4946Iyyiezo referralCincinnati Va Medical Center Work Phone: Start: 12-73-1110Upyrxeskq vaccinationInfluenza Vaccine (#1)[facility] HealthcareStart: 02-24-2025 End: 44-15-3672FR Chest for screening WO contrastCT lung screening low dose Imaging Routine Former smoker Expected: 02/24/2025, Expires: 02/24/2026NOIN HealthcareComment on above:Expected: 02/24/2025, Expires: 02/24/2026Start: 02-24-2025 End: 40-17-4742ZP Breast - bilateral ScreeningBilateral screening mammogram Imaging Routine Breast cancer screening by mammogram Expected: 02/24/2025, Expires: 04/26/2026[facility] Work Phone: Comment on above:Expected: 02/24/2025, Expires: 04/26/2026Start: 02-24-2025 End: 92-37-5687Shqihvw encounter procedureNOELKVIEW GENERAL [facility] FMComment on above:Arrived Start: 02-03-2025 End: 36-18-1198Anrqnyq encounter /28/2025 4:00 PM EDT Office Visit [facility] [address] [place] [address] Diomedes Fitzgerald DO [address] [place] [address] MERCEDES BELLEVUEStart: 12-30-2024 End: 07-33-2674Utjpqbc encounter ikynnuciv40/23/2025 1:00 PM EDT Office Visit [facility] ODOMEVUE [address] [place] [address] Diomedes Fitzgerald DO [address] [place] [address] [facility] ODOMGRANT HOSPITALtart: 70-42-7596OawcxcdujWyandot Memorial Hospitaltart: 76-35-9455Ttmthmxm to Social ServicesWyandot Memorial Hospitaltart: 77-37-9164Agpfvdfg admissionWyandot Memorial Hospitaltart: 11-27-2024 Screening for malignant neoplasm of breastMaogramSALT LAKE REG[facility] HealthcareStart: 09-26-2024 End: 48-64-9959Yafatbc encounter procedureSALT LAKE REGIONAL MEDICAL [facility] [place] [facility] ROUTEStart: 08-27-2024 End: 31-63-1901Zshrq metabolic 1998 panel - Serum or PlasmaBasic metabolic panel Lab Routine Essential hypertension, benign (CMS/HCC) Expected: 08/27/2024 (Luaren roximate), Expires: 08/27/2025[facility] HealthcareComment on above:Expected: 08/27/2024 (Approximate), Expires: 08/27/2025Start: 08-27-2024 End: 50-39-6203GRR W Auto Differential panel - BloodCBC and differential Lab Routine Encounter for long-term (current) use of medications Expected: 08/10 (Approximate), Expires: 08/27/2025[facility] HealthcareComment on above: Expected: 08/27/2024 (Approximate), Expires: 08/27/2025Start: 08-27-2024 End: 85-65-9268Wqsublfnag A1c/Hemoglobin.total in BloodHemoglobin A1c Lab Routine Prediabetes Expected: 08/27/2024 (Approximate), Expires: 08/27/2025[facility] Work Phone: Comment on above:Expected: 08/27/2024 (Approximate), Expires: 08/27/2025Start: 08-27-2024 End: 92-20-1773Bdjhlxq function 2000 panel - Serum or PlasmaHepatic function panel Lab Routine Encounter for long-term (current) use of medications Expected: 08/27/2024 (Approximate), Expires: 08/27/2025[facility] HealthcareComment on above: Expected: 08/27/2024 (Approximate), Expires: 08/27/2025Start: 08-27-2024 End: 69-51-4032Fpfes 1996 panel - Serum or PlasmaLipid panel Lab Routine Dyslipidemia ([facility]/HCC) Expected: 08/27/2024 (Approximate), Expires: 08/27/2025 NOMS HealthcareComment on above:Expected: 08/27/2024 (Approximate), Expires: 08/27/2025Start: 08-27-2024 End: 05-77-8455Cdajicwjjrh [Units/volume] in Serum or PlasmaTSH Lab Routine Class 2 severe obesity due to excess calories with serious comorbidity and body mass index (BMI) of 36.0 to 36.9 in adult ([facility]/HCC) Expected: 08/27/2024 (Approximate), Expires: 08/27/2025NOMS HealthcareComment on above:Expected: 08/27/2024 (Approximate), Expires: 08/27/2025Start: 08-16-2024 End: 93-99-4643Fthksua encounter ugytywtaf09/07/2025 9:00 AM EST Office Visit [facility] CWM [address] [place] [address] Latrell Jack MD [address] [place] [address] NOMS CWM FMStart: 07-24-2024 End: 17-74-8156Aspbwxdsi to same day surgery hheudx5507/24/2024 10:51 AM EST - 07/24/2024 3:42 PM EST Surgery Admitting [address] [place] [address] Xavier Boyd MD [address] [place], [place] [id number] LAPAROSCOPIC RPR PARAESOPHAGEAL HERNIA W/O FUNDOPLASTY W/ MESHAdmittingComment on above:LAPAROSCOPIC RPR PARAESOPHAGEAL HERNIA W/O FUNDOPLASTY W/ MESHStart: 07-24-2024 End: 08-79-3108Aqaj rpr paraesphgl hrna incl fundplsty w/meshLAPAROSCOPIC RPR PARAESOPHAGEAL HERNIA W/O FUNDOPLASTY W/ MESH Preoperative examination Paraesophageal hernia 07/24/2024 10:[address] [facility]IONStart: 07-24-2024 Subsequent hospital visit by physicianAdmittingComment on above:Preoperative examination [Z01.818], Paraesophageal hernia [K44.9]Start: 53-91-3852Aogtowe Directive DiscussionAdvance Directive DiscussionKettering Health [facility]: 06-29-2024 End: 14-59-9646qRIJ in Platelet poor plasma by Coagulation assayACTIVATED PARTIAL THROMBOPLASTIN TIME Lab Routine Preoperative examination Paraesophageal hernia Abnormal coagulation profile Expected: 06/29/2024, Expires: 10/29/2024 [facility] HospitalComment on above:Expected: 06/29/2024, Expires: 10/29/2024Start: 06-29-2024 End: 92-33-2877CCT W Auto Differential panel - BloodCOMPLETE BLOOD COUNT AND DIFFERENTIAL Lab Routine Preoperative examination Paraesophageal hernia Exp ected: 06/29/2024, Expires: 10/29/2024[facility] ClinicComment on above:Expected: 06/29/2024, Expires: 10/29/2024Start: 06-29-2024 End: 93-88-7018Tacostjodjfrd metabolic 2000 panel - Serum or PlasmaCOMPREHENSIVE METABOLIC PANEL Lab Routine Preoperative examination Paraesophageal hernia Expected: 06/29/2024, Expires: 10/29/2024[facility] ClinicComment on above: Expected: 06/29/2024, Expires: 10/29/2024Start: 06-29-2024 End: 78-02-0190DH panel - Platelet poor plasma by Coagulation assayPROTHROMBIN TIME Lab Routine Preoperative examination Paraesophageal hernia Abnormal results of liver function studies Expected: 06/29/2024, Expires: 10/29/2024[facility] ClinicComment on above:Expected: 06/29/2024, Expires: 10/29/2024Start: 06-29-2024 End: 61-32-5593DGAN AND SCREEN,30 DAYTYPE AND SCREEN,30 DAY Blood Bank Routine Preoperative examination Paraesophageal hernia Expected: 06/29/2024, Expires: 10/29/2024[facility] ClinicComment on above:Expected: 06/29/2024, Expires: 10/29/2024Start: 05-30-2024 End: 94-48-4503Iwddewi encounter procedureNOMS [facility] ROUTEComment on above:ArrivedStart: 05-15-2024 End: 59-33-5004Ucznpkr encounter clrzfwebx82/06/2024 10:00 AM EST [facility] [address] [place] [address] Latrell Jack MD [address] [place] [address] NOMS CW FMStart: 04-29-2024 End: 68-57-9240Igktlju encounter nmymkpdjc51/21/2024 11:00 AM EDT Office Visit General Surgery [address] [address] Xavier Boyd MD [address] [place] [address] Hiatal HerniaGeneral SurgeryComment on above:Hiatal Hernia Start: 04-11-2024 End: 12-03-3040Zcshlpb encounter /03/2024 9:00 AM EDT Office Visit [facility] NEUROLOGY [address] [address] [facility] NEUROLOGYStart: 03-26-2024 End: 58-19-3938Nlpnqcp encounter cqgqwjbve33/17/2024 2:30 PM EDT Office Visit NOMS ST NEUROLOGY [address] [address] Mao Morrow, PhD [address] [place] [address] [facility]rivedEVERGREEN [facility] NEUROLOGYComment on above:ArrivedStart: 03-25-2024 End: 50-60-6719Zrosizzwqblw / ancillary services lgfsccrpzu73/16/2024 8:45 AM EDT Ancillary Procedure [facility] [place] [address] [place] [address] N[facility]S [place] [facility] ROUTEStart: 03-19-2024 End: 67-43-7108Uwfrfms encounter mqxoipqgg72/10/2024 2:00 PM EDT Office Visit [facility] [address] [facility] [address] Mao Morrow, PhD [address] [place] [id number] [facility] NEUROLOGYStart: 73-18-9238Faqvx-19 Vaccine ( season)Covid-19 Vaccine ( season)[facility]: 03-10-2024 Covid-19 Vaccine ( season)Covid-19 Vaccine ( season) [facility]: 24-51-6227Fekfsbgdg vaccinationInfluenza Vaccine (#1)[facility] HealthcareStart: 03-07-2024 End: 58-02-8836Cdwsawwav (Vitamin B12) [Mass/volume] in Serum or PlasmaVitamin B12 Lab Routine Memory loss Expected: 03/07/2024 (Approximate), Expires: 03/07/2025[facility] HospitalComment on above:Expected: 03/07/2024 (Approximate), Expires: 03/07/2025Start: 03-07-2024 End: 79-25-5966QRZ awake or drowsyEEG awake or drowsy Neurology Routine Memory loss Expected: 03/07/2024 (Approximate), Expires: 03/07/2025[facility] Work Phone: comment on above:Expected: 03/07/2024 (Approximate), Expires: 03/07/2025Start: 03-07-2024 End: 31-69-2856Ximjup [Mass/volume] in Serum or PlasmaFolate Lab Routine Memory loss Expected: 03/07/2024 (Approximate), Expires: 03/07/2025[facility] Healthcare Comment on above:Expected: 03/07/2024 (Approximate), Expires: 03/07/2025Start: 03-07-2024 End: 62-98-7523CG Brain WO contrastMR brain wo contrast Imaging Routine Memory loss Expected: 03/07/2024, Expires: 03/07/2025NOIN HealthcareComment on above: Expected: 03/07/2024, Expires: 03/07/2025Start: 03-07-2024 End: 65-31-3229Jifyqymzlrj [Units/volume] in Serum or PlasmaTSH Lab Routine Memory loss Expected: 03/07/2024 (Approximate), Expires: 03/07/2025NO[facility] HealthcareComment on above:Expected: 03/07/2024 (Approximate), Expires: 03/07/2025Start: 03-07-2024 End: 18-94-6776Muzwhtg encounter zniqjvpvx01/29/2024 11:30 AM EDT Office Visit [facility] [address] [place] [address] Diomedes Fitzgerald DO [address] [place] [address] 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CMS/HCC)[facility] [place] [address] Comment on above: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CMS/HCC)Start: 02-09-2024 End: 42-91-6408Vfusqpm encounter wmbzmabju39/02/2024 9:45 AM EDT Office Visit [facility] LISA [address] [place] [address] Latrell Jack MD [address] [place] [address] NOMS LISA FMStart: 08-11-2023 End: 91-30-5550Zwjin metabolic 1998 panel - Serum or PlasmaBasic metabolic panel Lab Routine Encounter for long-term (current) use of medications Expected: 08/2023 (Approximate), Expires: 08/11/2024[facility] HealthcareComment on above: Expected: 08/11/2023 (Approximate), Expires: 08/11/2024Start: 08-11-2023 End: 97-17-9212NJL W Auto Differential panel - BloodCBC and differential Lab Routine Encounter for long-term (current) use of medications Expected: 08/2023 (Approximate), Expires: 08/11/2024NO[facility] HealthcareComment on above: Expected: 08/11/2023 (Approximate), Expires: 08/11/2024Start: 08-11-2023 End: 10-62-8048Sdahwurtvn A1c measurementHemoglobin A1c Lab Routine Morbid obesity due to excess calories (CMS/HCC) Expected: 08/11/2023 (Approximate), Expires: 08/11/2024[facility] Work Phone: Comment on above:Expected: 08/11/2023 (Approximate), Expires: 08/11/2024Start: 08-11-2023 End: 06-42-2911Xleeayq function 2000 panel - Serum or PlasmaHepatic function panel Lab Routine Encounter for long-term (current) use of medications Expected: 08/11/2023 (Approximate), Expires: 08/11/2024[facility] HealthcareComment on above: Expected: 08/11/2023 (Approximate), Expires: 08/11/2024Start: 08-11-2023 End: 72-12-2400Rudyr 1996 panel - Serum or PlasmaLipid panel Lab Routine Dyslipidemia ([facility]/HCC) Expected: 08/11/2023 (Approximate), Expires: 08/11/2024 NOMS HealthcareComment on above:Expected: 08/11/2023 (Approximate), Expires: 08/11/2024Start: 08-11-2023 End: 66-49-5459Ftorqvzrfyz [Units/volume] in Serum or PlasmaTSH Lab Routine Morbid obesity due to excess calories (CMS/HCC) Expected: 08/11/2023 (Approximate),Expires: 08/11/2024[facility] HealthcareComment on above:Expected: 08/11/2023 (Approximate), Expires: 08/11/2024Start: 08-11-2023 End: 85-81-1576Rhvjexf encounter etecrllez70/02/2024 9:45 AM EST Office Visit [facility] [address] [place] [address] Latrell Jack MD [address] [place] [address] [facility] FMComment on above:ArrivedStart: 13-65-0392Wdjekdt Directive DiscussionAdvance Directive DiscussionKettering Health [facility]: 68-33-1435Sltpdbbzz vaccinationInfluenza Vaccine (#1)[facility] HealthcareStart: 77-17-3440Iksayqzyw for osteoporosisBone Density ScreeningKettering Health [facility]yt[facility]: 60-89-2137Hasakfjj Vaccine (1 of 2)Shingrix Vaccine (1 of 2)[facility] Start: 56-85-1343Nzsgzvgu ScreeningDiabetes ScreeningKettering Health [facility]: 85-31-7651Pzldc panelLipid ScreeningK[facility]tering Health [facility]: 75-03-0183Pyaaupfml for malignant neoplasm of colonKettering Health [facility]: 61-68-8549Nbpbbstkr for malignant neoplasm of breastNOMS HealthcareStart: 51-65-2112Xguvbcrxxm acid therapyAlpha-1 Antitrypsin Deficiency ScreeningKettering Health [facility]: 09-21-1969 Urine microalbumin profileDTaP,Tdap,Td Vaccine (1 - Tdap)[facility]: 28-80-5445Xpsjih PCP Team Chronic Disease VisitAnnual PCP Team Chronic Disease VisitKettering Health [facility]: 49-08-4708Opqjqqq ScreeningAnxiety Screening [facility]: 80-72-8828JV Controlled (<130/80)BP Controlled (<130/80) [facility]: 56-22-8626Uqorkjtkhm ScreeningDepression Screening [facility]: 37-23-8126Imtdhqxnv C screeningHepatitis C Screening [facility]: 06-69-7855SqlyrlazksUrjsaqisfiBjhsveklk ClinicStart: 03-15-1952Medicare Annual Wellness (AWV)Medicare Annual Wellness (AWV)[facility] HealthcareStart: 78-58-0687Dryoajips for malignant neoplasm of colonNOMS HealthcareStart: 75-07-9425Kjfzciuxa for malignant neoplasm of lungLung Cancer Screening Shared Decision MakingCedar County Memorial Hospital End: 68-23-9785QNR COMPLETEECG COMPLETE ECG Routine Preoperative examination Paraesophageal hernia 1 Occurrences starting 05/06/2024 until 05/04/2025 [facility] HospitalComment on above:1 Occurrences starting 05/06/2024 until 05/04/2025Laps rpr paraesphgl hrna incl fundplsty w/meshLAPAROSCOPIC RPR PARAESOPHAGEAL HERNIA W/O FUNDOPLASTY W/ MESH Preoperative examination Paraesophageal hernia MAIN PAVILIONPatient EducationDepression in adults - Discharge instructions [facility] [place] Instructions Know your Meds [facility] Work Phone: Patient referralHighland District Hospital Ctr Work Phone: REFER FOR ADMIT INTERVIEWREFER FOR ADMIT INTERVIEW Procedures Routine Preoperative examination Paraesophageal hernia [facility] Work Phone: Comment on above:Ordered: 05/06/2024 End: 00-77-2882KW Chest PA and LateralXR CHEST 2V FRONTAL/LAT Radiology Routine Pre-op evaluation Chronic obstructive pulmonary disease, unspecified COPD type (HCC) CHENEY (dyspnea on exertion) 1 Occurrences starting 07/23/[address] [place] [address] Work Phone: Comment on above:1 Occurrences starting 07/23/2024 until 08/23/2025XR Chest PA and LateralXR CHEST 2V FRONTAL/LAT Radiology Routine Pre-op evaluation Chronic obstructive pulmonary disease, unspecified COPD type (HCC) CHENEY (dyspnea on exertion) 07/23/2024 1:58 PM [facility] Immunizations Immunization DateImmunizationNotesCare BzajarwpGsoajeqv27-71-0402joqrnzwvo virus vaccine, unspecified formulationLatrell Jack MD Work Phone: [facility] HospitalLeovgrntcp11-61-1232fnrhveitz virus vaccine, unspecified formulationMichael NILL [phone]-YmdihHolzer Hospital [facility] [place] 58-05-5111BHBP-CoV-2 (COVID-19) mRNAMUL.ORD!p24239Bjerbyw NILL [phone]-OpjbdHolzer Hospital [facility] 70-81-3451rshegxrug virus vaccine, unspecified formulationLatrell Jack MD Work Phone: [phone]-WhonhHolzer Health System05-19-2022 pneumococcal conjugate vaccine, 13 valentNicole Amilcar DO Work Phone: [facility] HospitalEangctitiy90-45-6005vjbjtxjnm virus vaccine, unspecified formulationMuhammad Sarmini [phone]-UdykfHolzer Health System10-04-2021 SARS-CoV-2 (COVID-19) mRNA BNT-162b2 vaxMichael NILL [phone]-HcrofOhiohealth O'[facility]leness Hospital Comment on above:Result Comment: 2023-09-06: [id number]-WrM-3 (COVID- 19) mRNA BNT-162b2 vaxMichael NILL [phone]-HzqyoOhiohealth O'Bleness Hospital Comment on above:Result Comment: 2023-09-06: SYS0740-62-6784FPVD-TeA-4 (COVID- 19) mRNA BNT-162b2 vaxMichael NILL [phone]-FygkjOhiohealth O'Bleness Hospital Comment on above:Result Comment: 2023-09-06: PYL2971-95-6044zwudhvlgc virus vaccine, unspecified formulationMuhammad Sarmini [phone]-CroezHolzer Health System11-07-2019 influenza virus vaccine, unspecified formulationMuhammad Sarmini [phone]-KmbwhHolzer Health System11-07-2019 pneumococcal polysaccharide vaccine, 23 valentMuhammad Sarmini [phone]-ZhfywHolzer Health System11-03-2018 influenza virus vaccine, unspecified formulationMuhammad Sarmini [phone]-LcsytHolzer Health System07-25-2018 pneumococcal conjugate vaccine, 13 valentMuhammad Sarmini [phone]-XjctjHolzer Hospital Digestive Ofosgw76-88-8758 influenza virus vaccine, unspecified formulationMuhammad Sarmini [phone]-HctvfHolzer Hospital Digestive Onwrft84-25-5210 influenza virus vaccine, unspecified formulationMuhammad Sarmini [phone]-NtwenHolzer Hospital Digestive Health Payers DatePayer CategoryPayerPolicy ID2025Self-pay2017Medicare (Managed Care)[employer] MEDIC[employer] ADVANTAGE Member Subscriber Plan / Payer (Effective 2016-2024) Name: Shey Obrien Relation to Subscriber: Self Name: Shey Obrien SubscriberID: [id number] Payer ID: [id number] (NAIC) Type: Not on file Address: [address] [id number] Health [id number] 2017Medicare [id number] 2017Unknown1960Medicare [id number] [id number]mt0059588 2.840.1.936518.3.579.2.65841-56-6379Qmumbyx0842631 2.840.1.254144.3.579.2.17224-61-8084Qbihcsu1702199 2.16.840.1.938832.3.579.2.39706-63-4075Ilmyrqd3694520 2.16.840.1.098182.3.579.2.40769-67-8558Wooaxgh8541082 2.16.840.1.276962.3.579.2.13189-29-6210Vtyrjnh2997103 2.16.840.1.562924.3.579.2.55873-60-3455Bxwriyh29240217 2.16.840.1.571724.3.579.2.36726-21-5953Hfrreec75997033 2.16.840.1.116081.3.579.2.98904-97-4042Qwuorlp35650595 2.840.1.245709.3.579.2.15924-09-3432Cnvfinu93675882 2.16.840.1.332159.3.579.2.96425-64-7046Amityfe95306291 2.16.840.1.498533.3.579.2.10761-58-9421Ihaunnk12385391 2.16.840.1.957125.3.579.2.31170-31-6629Ieadxjx32199923 2.16.840.1.132312.3.579.2.58677-54-2571Akbclks78310292 2.16.840.1.984295.3.579.2.80386-79-0488Wsgisbp07027813 2.16.840.1.027985.3.579.2.385600-58-8245Cbjobhs8376743 2.16.840.1.797663.3.579.[id number] 2.16.840.1.125239.3.579.[id number] 2..840.1.887401.3.579.2.279454-60-6584Dialdlg5751665 2..840.1.265240.3.579.2.677269-10-7369Lfbwyyp3423375 2..840.1.344684.3.579.2.610307-87-4789Bnxxycr1198646 2..840.1.536082.3.579.2.744287-49-7465Qcufszn1942068 2.840.1.225718.3.579.2.703389-41-7996Eavkiii7528670 2.840.1.823446.3.579.2.747440-27-2009Hppeghk6542978 2..840.1.216104.3.579.2.271649-21-1725Xuuojrf525161613 2..840.1.846657.3.579.2.25572-36-7806Jtbwkbt169435295 2.840.1.993689.3.579.2.37778-19-3334Xffxcpk767277635 2.840.1.035500.3.579.2.07608-74-4155Iwfvztm215427784 2.840.1.417631.3.579.2.43930-53-7795Ummzttb353106749 2..840.1.548735.3.579.2.6[id number] 2.16.840.1.309997.3.579.2.226Jngklkb49255379 2.840.1.555106.3.579.2.531 [id number] 2.16.840.1.390993.3.579.2.531 Social History DateTypeDetailFacilityStart: 08-05-2023 End: 14-91-4245Bwlunxs smoking status NHISEx-smokerNOMS HealthcareStart: 07-10-1967 End: 03-11-8741Yrvcjib of tobacco useCurrent smokerNOMS HealthcareStart: 07-10-1967 End: 54-55-1857Xtddojn of tobacco useCigarette SmokerNOMS HealthcareStart: 08-05-2023 End: 94-50-6936Fehlhoinyw smoked current (pack per day) - Mcgxavmt6AHQI HealthcareStart: 08-05-2023 End: 46-92-1006Oaetbeu use panelNOIN HealthcareStart: 54-77-8342Ovi Assigned At BirthNot on fileNOMS HealthcareStart: 08-11-2023 End: 36-06-8554Bakyejc use and exposureSmokeless tobacco non-userNOMS Healthcare Start: 70-81-5490Rfvtyzv smoking statusNeSamaritan North [facility] Center [facility] Hospitaltart: 03-07-2024 End: 99-38-8707Ugvrpvcnf beverage intakeCurrent drinker of alcohol (finding)NOMS HealthcareAre [...] the mortgage or rent on time?NoNOMS HealthcareStart: 36-96-8363Pvejfrp CommentCaffeine: 2-3 cups per dayNOMS HealthcareTobacco smoking status NHIS Tobacco smoking consumption unknownKettering Health Troytart: 97-33-7959Kyqvkg identityIdentifies as female gender (finding)[facility]: 07-23-2024 End: 50-16-2645Sblktbnlz beverage intakeEx-drinker (finding)[facility] Start: 22-28-0957Mnbsrkp CommentAge 16 - 60, 1/2 - 2 PPD, quit while at 1 PPD [facility] HospitalHow often do you need to have someone help you when you read instructions, pamphlets, or other written material from your doctor or pharmacy [SILS]SometimesNOMS HealthcareSexual OrientationChillicothe Hospital Start: 09-04-2018 End: 51-85-3162JzrWzemdw (finding)[facility] Centertart: 1950 [facility]Fe[facility] Medical Equipment Procedure CodeEquipment CodeEquipment Original TextEquipment IdentifierDatesFelt Thk1.65mm Ptfe 4x.5in Cardiovascular Sterile - [id number]: 07-24-2024 Goals DatePatient GoalDesired Activity/State Functional Status HulfGhiwfkvwjkAhvyyzQccgvqxe32-55-8361Xlquzqztsr statusPatient at Baseline [facility] Work Phone: [phone] 580-52870500582-53-0399Bwkhlej Health Questionnaire 2 item (PHQ-2) [Reported][facility] HospitalMpnojsxxrg31-23-0290Xfqifraflz StatusN/[facility]08-25-2024Total score [AUDIT-C]3 03/03/2024 8:19 AM Yadira DialloCedar County Memorial HospitalBhbxrwrhuf59-62-0705Ifqrtosemy StatusN/[facility] Digestive Ohrrvy33-39-0622Nhzrkfuikz StatusN/[facility] CenterNOIN Healthcare Mental Status EkrzYecnhnbhtiCxbikdOujioqjw20-92-7037Hpykegvxj functionCognitive Status Patient at BaselineC[facility] Work Phone: Clinical Notes 09-10-2021 to 04-23-2025 Note Date & XofgKghoLmzamdbl50-67-1671 NoteHNO ID: [id number] Author: KATARZYNA SNYDER APRN.ROTOR CASTING MACHINE OPERATOR Service: ? Author Type: Nurse Practitioner Type: Progress Notes Filed: 04/23/2025 12:10 Note Text: [facility] Clinic Date: [...] which included preparing to see the patient, yxlu-zu-kcwr patient care, completing clinical documentation, obtaining and/or reviewing separately obtained history, performing a medically appropriate examination, and counseling and educating the patient/family/caregiver. Katarzyna Snyder, MSN, ROTOR CASTING MACHINE OPERATOR April 23[facility]10-15-2025 NoteHNO ID: [id number] Author: OLGA LIDIA BLAKE MA Service: ? Author Type: Applications Project Manager Type: Progress Notes Filed: 04/23/2025 12:10 Note Text: What is the reason for your visit today? Est Who is your referring physician? Dr. Snyder Are you having poor oral intake? NO Have you had unintentional weight loss of 15 lbs/7 Kg in the last 3-6 months? YES Bowels: regular Wound: clean AND dry Temperature: No Drains: NoCFirelands Regional Medical [facility]10-02-2025 Evaluation note* Diagnosis Onset Date Resolution Status [...] PseudodementiaacuteOct2024 12:27pmObstructive sleep apnea syndrome noneactiveOct2024 12:27pm [facility] Work Phone: 1(167) 877-212008-18-2025 History of Present illness Narrative* Latrell Jack [...] Orders Bilateral screening mammogram documented in this encounterCedar County Memorial HospitalUufbwgifsy48-45-5889 Evaluation note* Diagnosis Onset Date Resolution Status Admit Date Anxiety acuteJuly 2024 3:29pmMajor depressive disorder, recurrent, moderateacute February 03, 2025 3:29pmMemory lossacuteJuly 2024 3:29pmPrimary insomnia acuteJuly 2024 3:29pmPseudodementiaacuteJuly 2024 3:29pmObstructive sleep apnea syndromenoneactiveJuly 2024 3:29pmPrimary osteoarthritis, left shoulderacuteOctober 2024 11:27am [facility] Work Phone: [phone] 865-881707-28-2025 Evaluation note* Diagnosis Onset Date Resolution Status Admit Date Anxiety acuteJuly 2024 3:29pmMajor depressive disorder, recurrent, moderateacute February 03, 2025 3:29pmMemory lossacuteJuly 2024 3:29pmPrimary insomnia acuteJuly 2024 3:29pmPseudodementiaacuteJuly 2024 3:29pmObstructive sleep apnea syndromenoneactiveJuly 2024 3:29pmDysfunction of left eustachian tubeacuteOctober 2024 11:27amEssential hypertension, benignacute April 10, 2025 11:27amPrimary osteoarthritis, left shoulderacuteOctober 2024 11:27amTinnitusacuteOctober 2024 11:27am [facility] Work Phone: 1([phone] 369-421207-28-2025 Evaluation note* Diagnosis Onset Date Resolution Status [...] 1:07pmPrimary osteoarthritis of both kneesacuteOctober 2024 1:07pm [facility] Work Phone: 1(238) 435-842806-09-2025 [place] [address] Discharge Summary Signed Patient: Shey Obrien MR#: [id number] : 1950 Acct:[id number] Age/Sex: 74 / F Adm Date: 5 Loc: Room: [address] [place] [address]: Erik Kim MD Copies to: [...] boyfriend Employment: retired former [employer] worker in [employer] Relationships: close, supportive relationship with [...] Instructions: Important Contact Information You can call [facility] at [phone] any timeday or night if you have emergent questions or question regarding discharge instructions. If at anytime you are feeling an increase inyour psychiatric symptoms, call your physician or behavioral healthcare provider. If any time you have thoughts of harming yourself or others contact one of the following: Call (available 30/01) Crisis Text Line (available 30/01) text 4HOPE [place] 298402 [facility] Line (available 8 a.m. Midnight) call [phone] ([phone]) Instructions: Depression in adults - [place], [facility] [...] device 1 cap INHALATION DAILY Follow Up: [facility] - [place] [Outside] - 12/17/24 (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, if you [...] MD 12/16/24 1131 Signed By: 12/16/24 1546 [facility]06-08-2025 Progress note Author Erik aguilar [facility] HospitalNote Date/TimeJune 2024 10:52[place] [address] Psychiatry Progress Note Signed Patient: Shey Obrien MR#: [id number] : 1950 Acct:[id number] Age/Sex: 74 / F Adm Date: 5 Loc: Room: [address] [place] [address] Type : ADM IN Attending Dr: Erik [...] discharge. Documented By: Erik Kim MD 5 4820 Signed By: <Electronically signed by Erik Kim MD> 12/15/24 1052 <Electronically signed by DO MALICK Tee> 12/15/24 0935 [facility] Work Phone: 1(373) 429-609206-08-2025 [place] [address] Psychiatry Progress Note Signed Patient: Shey Obrien MR#: [id number] : 1950 Acct:[id number] Age/Sex: 74 / F Adm Date: 5 Loc: Room: [address] [place] [address] Type : ADM IN Attending Dr: Erik [...] 0941 Signed By: 12/15/24 1052 12/15/24 0943 [facility]06-07-2025 Progress note Author Erik aguilar [facility] HospitalNote Date/TimeJune 2024 2:23[place] [address] Psychiatry Progress Note Signed Patient: Shey Obrien MR#: [id number] : 1950 Acct:[id number] Age/Sex: 74 / F Adm Date: 5 Loc: 1S Room: [address] [place] [address] Type : ADM IN Attending Dr: Erik [...] discharge. Documented By: Erik Kim MD 5 9090 Signed By: <Electronically signed by Erik Kim MD> 12/14/[address] [place] [address] Work Phone: 1(913) 478-349806-07-2025 [place] [address] Psychiatry Progress Note Signed Patient: Shey Obrien MR#: [id number] : 1950 Acct:[id number] Age/Sex: 74 / F Adm Date: 5 Loc: 1S Room: [address] [place] [address] Type : ADM IN Attending Dr: Erik [...] MD 5 1301 Signed By: 12/14/24 1423 [facility]06-06-2025 History and physical note Author Erik aguilar [facility] HospitalNote Date/TimeJune 2024 10:06[place] [address] Psychiatry H&P Signed Patient: Shey Obrien MR#: [id number] : 1950 Acct:[id number] Age/Sex: 74 / F Adm Date: 5 Loc: 1S Room: [address] [place] [address] Type: ADM IN Attending Dr: Erik Kim [...] boyfriend Employment: retired former [employer] worker in [employer] Relationships: close, supportive relationship with [...] protrusion midline [facility] Medical History (Updated 12/13/24 @ [...] discharge. Documented By: Erik Kim MD 5 7815 Signed By: <Electronically signed by Erik Kim MD> 12/13/[address] [place] [address] Work Phone: 1(647) 178-632006-06-2025 [place] [address] Psychiatry H&P Signed Patient: Shey Obrien MR#: [id number] : 1950 Acct:[id number] Age/Sex: 74 / F Adm Date: 5 Loc: 1S Room: [address] [place] [address] Type: ADM IN Attending Dr: Erik Kim [...] boyfriend Employment: retired former [employer] worker in [employer] Relationships: close, supportive relationship with [...] protrusion midline [facility] Medical History (Updated 12/13/24 @ [...] MD 5 0841 Signed By: 12/13/24 1006 [facility]06-05-2025 Chief complaint+Reason for visit Narrative* Chief Complaint Admit Date Mental Evaluation. December 12, 2024 6:22p m Mental Evaluation. December 13, 2024 8:41a m Reason for Visit Admit Date Major depressive disorder, recurrent, mo derate December 12, 2024 6:22pm [facility] Work Phone: 1(473) 309-322006-05-2025 Chief complaint+Reason for visit Narrative * Chief Complaint Admit Date Mental Evaluation. December 12, 2024 6:22p m Mental Evaluation. December 13, 2024 8:41a m Reason for Visit Admit Date Major depressive disorder, recurrent, mo derate December 12, 2024 6:22pm Primary insomnia February 03, 2025 3:29 pm Obstructive sleep apnea syndrome February 032024 3:29pm [facility] Work Phone: 1(990) 690-537906-05-2025 Evaluation note* Diagnosis Onset Date Resolution Status Admit Date Major depressive disorder, recurrent, mo derate acuteJune 2024 6:22pm [facility] Work Phone: 1(572) 304-838206-05-2025 Evaluation note* Diagnosis Onset Date Resolution Status Admit Date Major depressive disorder, recurrent, mo derate acuteJune 2024 6:22pmPrimary insomniaacuteJuly 2024 3:29pmObstructive sleep apnea syndromenoneactiveJuly 2024 3:29pm [facility] Work Phone: 1(129) 415-959306-05-2025 Evaluation + Plan noteExtracted from:Title: ED NoteAuthor:Elmer Kohli DODate:12/12/24 Suicidal ideation (R45.851: Suicidal ideations) Orders: CBC w/ Auto Diff Communication Order Comprehensive Metabolic Panel Consult to Mental Health Drug Screen Urine ECG 12 Lead Adult eGFR Ethanol Level UA with Cult Rflx Urine Culture Diagnostic Tests Pending * Urine Culture 12/12/24 [facility] 05-28-2025 History of Present illness Narrative* Latrell Jack MD - 12/04/2024 2:25 PM EDTAssociated Problem(s): Degenerative lumbar spinal stenosis Recent flare and increased pain. Treat with prednisone. Use robaxin for spasms and norco PRN. Follow up with pain management next week as scheduled. * Latrell Jack MD - 12/04/2024 2:24 PM EDTAssociated Problem(s): COPD (chronic obstructive pulmonary disease) ([facility]) SOB stable and continue albuterol nebulized PRN. [...] tablet predniSONE (Deltasone) 50 MG tablet HYDROcodone-acetaminophen ([place]) 5-325 MG tablet documented in this encounterCedar County Memorial HospitalSdxyuzeuwx82-26-5777 History of Present illness Narrative* Latrell Jack [...] (BMI) of 36.0 to 36.9 in adult ([facility]) Weight loss indicated. * Latrell Jack MD [...] Items Addressed This Visit Essential hypertension, benign ([facility]) BP controlled and monitor PRN. Relevant Orders Basic metabolic panel COPD (chronic obstructive pulmonary disease) ([facility]) Symptoms stable and continue spiriva. Use albuterol PRN. Dyslipidemia ([facility]) Relevant Orders Lipid panel Encounter for long-term (current) use of medications Relevant Orders CBC and differential Hepatic function panel Prediabetes Relevant Orders Hemoglobin A1c Class 2 severe obesity due to excess calories with serious comorbidity and body mass index (BMI) of36.0 to 36.9 in adult ([facility]) Weight loss indicated. Relevant Orders TSH Medicare annual wellness visit, subsequent - Primary Due for labs. Discussed proper diet and regular aerobic exercise. Need aerobic exercise 5-6 days a week for 30 minutes at a time. Smaller portions and limit total calories. Colonoscopy every 10 years. Tetanus every 10 years. Advised not to smoke. Discussed daily Aspirin therapy. documented in this encounterCedar County Memorial HospitalArlwscctqx46-53-6972 NoteHNO ID: [id number] Author: KATARZYNA SNYDER APRN.ROTOR CASTING MACHINE OPERATOR Service: ? Author Type: Nurse Practitioner Type: Progress Notes Filed: 08/07/2024 15:37 Note Text: [facility] Clinic Date: [...] completed prior to appointment Katarzyna Snyder, MSN, ROTOR CASTING MACHINE OPERATOR August 07[facility]01-29-2025 History of Present illness Narrative* Katarzyna Snyder, LISSETTE.SKYLA - 08/07/2024 2:14 PM EST [facility] Clinic Date: [...] completed prior to appointment Katarzyna Snyder, MSN, ROTOR CASTING MACHINE OPERATOR August 07, 2024 * Olga Lidia Blake [...] No Drains: No documented in this encounterOhiohealth Grady [facility] Hospital01-29-2025 NoteHNO ID: [id number] Author: OLGA LIDIA BLAKE MA Service: ? Author Type: Applications Project Manager Type: Progress Notes Filed: 08/07/2024 15:37 Note Text: What is the reason for your visit today? Post op Who is your referring physician? Dr. Snyder Are you having poor oral intake? NO Have you had unintentional weight loss of 15 lbs/7 Kg in the last 3-6 months? NO Bowels: constipated, diarrhea, or regular Wound: clean AND dry Temperature: No Drains: [facility]01-22-2025 Telephone encounter Note* Telephone Encounter - Latrell Jack MD - 07/31/2024 2:25 PM EST Sent to [facility]. [facility] HospitalZhwnwyvqfd71-58-7337 Miscellaneous Notes* Telephone Encounter - Latrell Jack MD - 07/31/2024 2:25 PM EST Sent to [facility]. * Telephone Encounter - GEO DICK - 07/31/2024 2:20 PM EST Insurance won't cover the extended release ambien. * Telephone Encounter - Sandra Matias - 07/31/2024 1:13 PM EST Patient called and stated that her zolpidem refill was denied. She would like you to call her or the pharmacy. an documented in this encounterNOSaint Luke's East HospitalVlbyxsrfmf04-52-4335 Telephone encounter Note* Telephone Encounter - GEO DICK - 07/31/2024 2:20 PM EST Insurance won't cover the extended release ambien. [facility] HospitalYmjaxsyltz53-45-1138 Telephone encounter Note* Telephone Encounter - Sandra Matias - 07/31/2024 1:13 PM EST Patient called and stated that her zolpidem refill was denied. She would like you to call her or the pharmacy. an [facility] HospitalBvnxtjvrnx42-98-9805 NoteHNO ID: [id number] Author: DERREK MARSHALL RN Service: Care Management [...] Primary Care Physician Primary Care Physician Name/Phone: aLtrell Jack MD Additional Information: Patient d/c ready to home with no skilled needs identified. Patient and bedside RN aware of plan. Family to transport patient home via private auto. SIGNATURE: Derrek Marshall RN PATIENT NAME: Shey Obrien DATE: July 26, 2024 TIME: 9:22 [facility]01-16-2025 NoteHNO ID: [id number] Author: DERREK MARSHALL RN Service: Care Management Author Type: Registered Nurse Type: Care Mgt Initial Assessment Filed: 07/25/2024 14:30 Note Text: CARE MANAGEMENT: ASSESSMENT AND DISCHARGE PLAN SERVICE DATE: July 25, 2024 SERVICE TIME: 2:29 PM PCP: Latrell Jack MD Primary Contact: Extended Emergency Contact Information Primary Emergency Contact: Alexandria Cramer Address: [address] [place] [address] Relation: Relative Admission Status: Inpatient Insurance Provider: MEDICARE A AND B Discharge Planning requested by: Per Department Practice Potential Transition Plans To Be Determined Advance Directives Current Advance Directive: None Safety Risk Lead Attempted to Assist with AD Completion: Yes Action: Education Provided Claridge of Choice Explained: Claridge of Choice Given: No Reason Not Given: [...] Obrien DATE: July 25, 2024 TIME: 2:29 [facility]01-16-2025 NoteHNO ID: [id number] Author: DERREK MARSHALL RN Service: Care Management Author Type: Registered Nurse Type: Care Mgt Progress Note Filed: 07/25/2024 14:28 Note Text: CARE MANAGEMENT: ASSESSMENT AND DISCHARGE PLAN SERVICE DATE: July 25, 2024 SERVICE TIME: 2:28 PM PCP: Latrell Jack MD Primary Contact: Extended Emergency Contact Information Primary Emergency Contact: Alexandria Cramer Address: [address] [place] [address] Relation: Relative Admission Status: Inpatient Insurance Provider: MEDICARE A AND B Discharge Planning requested by: Per Department Practice Potential Transition Plans To Be Determined Advance Directives Current Advance Directive: None Safety Risk Lead Attempted to Assist with AD Completion: Yes Action: Education Provided Claridge of Choice Explained: Claridge of Choice Given: No Reason Not Given: [...] Obrien DATE: July 25, 2024 TIME: 2:27 [facility]01-16-2025 NoteHNO ID: [id number] Author: YAN MOSER ? Service: General Surgery [...] and Airways Line Duration Peripheral 07/24/24 0900 [facility] Right Hand 20 Gauge <1 day Peripheral 07/24/24 1111 Left Hand 18 Gauge <1 day SURGERY/PROCEDURE: Procedure(s) and Anesthesia Type: * LAPAROSCOPIC RPR PARAESOPHAGEAL HERNIA W/O FUNDOPLASTY W/ MESH - General [facility]01-15-2025 NoteHNO ID: [id number] Author: NENA SEPULVEDA MD Service: General Surgery [...] MD SERVICE DATE: 07/24/24 SERVICE TIME: 7:09 [facility]01-15-2025 NoteHNO ID: [id number] Author: TRIP GRAY RN Service: Nursing Author Type: Registered Nurse Type: Progress Notes Filed: 07/24/2024 18:55 Note Text: [id number] Paged [id number] to notify that patient came up from PACU with a rdz in but no active rdz order. Requesting order to be placed.[facility] 07-24-2024 NoteHNO ID: [id number] Author: TRIP GRAY RN Service: Nursing Author Type: Registered Nurse Type: Progress Notes Filed: 07/24/2024 18:25 Note Text: Admission/Transfer Note PATIENT NAME: Shey Obrien Patient Location: [place] [address]/[facility]- Room: [place] [address] Patient admitted from PACU via bed in stable condition. Actions taken: Patient oriented to room, call light function, prescribed activities, Patient rights, and Quiet at night. Patient belongings with patient. This note was completed by: Trip GrayThe [facility] 07-[facility]2024 NoteHNO ID: [id number] Author: BETTY ALLEN APRN.MARINE PHOTOGRAPHER Service: ? Author Type: Nurse Systems Design Engineer Type: Anesthesia Procedure Notes Filed: 07/24/2024 11:23 Note Text: ANESTHESIOLOGY PROCEDURE NOTE Airway General Information Procedure Start Time/Medication Administration: 07/24/2024 11:09 AM Procedure End Time: 07/24/2024 11:09 AM Patient location during procedure: OR Timeout Performed Pre-procedure: timeout performed Consent Obtained: Yes Patient identity confirmed: arm band, care steamblaster and patient Staffing MARINE PHOTOGRAPHER: Betty Allen APRN.MARINE PHOTOGRAPHER Performed by: ELIZABETH Indications and Patient Condition [...] July 24, 2024 TIME: 11:23 AM CSN: [id number] Regional Medical [facility]01-15-2025 NoteHNO ID: [id number] Author: ALLEN, BETTY, NEWSPAPER PUBLISHER.MARINE PHOTOGRAPHER Service: ? Author Type: Nurse Systems Design Engineer Type: Anesthesia Procedure Notes Filed: 07/24/2024 11:23 Note Text: ANESTHESIOLOGY PROCEDURE NOTE PIV General Information Procedure Start Time/Medication Administration: 07/24/2024 11:11 AM Procedure End Time: 07/24/2024 11:11 AM Patient Location: OR Staffing MARINE PHOTOGRAPHER: Betty Allen APRN.MARINE PHOTOGRAPHER Performed by: MARINE PHOTOGRAPHER Preparation Sterility Preparation: hand hygiene performed prior to procedure, surgical cap used, mask used, skin prep agent completely dried prior to procedure Site Prep: alcohol Procedure Details Indication: need for IV access Needle Size/Type: 18 gauge angiocath Orientation: Left Location: Hand Imaging Guidance Used: No SIGNATURE: Betty Allen APRN.CRNA PATIENT NAME: Shey Obrien DATE: July 24, 2024 TIME: 11:22 AM CSN: [id number] Regional Medical Center [facility] Campus01-15-2025 NoteHNO ID: [id number] Author: ABDELRAHMAN HE MD Service: General Surgery Author Type: Resident Type: Plan of Care Filed: 07/24/2024 10:30 Note Text: Patient consented for study? Yes STUDY TITLE: MVP Trial: Mesh Vs Pledgets for repair of paraesophageal hernia repair: a randomized, blinded, parallel group trial IRB NO.: #[id number] CYLINDER DYER: Willard Ramirez MD COORDINATOR/Research Nurse/Supervisor Labor Gang: Abdelrahman He MD Phone/email: [phone], [email or web address] Consenting was performed in person prior [...] CRITERIA Yes No 1. The patient lacks Bahamian language fluency or cannot understand the consent form/study procedures [] [x] 2. The patient is [] [x] 3. The patient has a BMI >45 [] [x] 4. The patient has undergone previous hiatal hernia repair [] [x] 5. The patient will undergo paraesophageal hernia repair with a concurrent bariatric procedure to reduce stomach volume [] [x][facility] 07-23-2024 History of Present illness Narrative* [...] PATIENT PRESENTS WITH AN IMPLANTABLE OR ATTACHED PLASTICS WORKER: No RADIOLOGY DEPARTMENT: General X-ray: Exam(s) Completed: Chest X-Ray PERIPHERAL IV DATA: Not applicable SIGNED BY: RIANNA Hatfield) July 23, 2024 1:59 PM documented in this encounterOhiohealth Grady Memorial Hospital01-14-2025 NoteHNO ID: [id number] Author: HUMERA MURPHY RT(R) Service: Radiology Author [...] PATIENT PRESENTS WITH AN IMPLANTABLE OR ATTACHED PLASTICS WORKER: No RADIOLOGY DEPARTMENT: General X-ray: Exam(s) Completed: Chest X-Ray PERIPHERAL IV DATA: Not applicable SIGNED BY: RT Liu(R) July 23, 2024 1:59 [facility]01-14-2025 Instructions* Patient Instructions* Jamil Delacruz PA-C - 07/23/2024 1:27 PM EST Images from the original note were not included. [facility] PATIENT PREOPERATIVE INSTRUCTIONS Dr. Boyd has scheduled you for your procedure at this surgery center: [facility] [place] Scheduling Office: [phone] --[address] [id number]. Please read below carefully for your personalized [...] office. If you are currently using a jvmf-iyv-uxgb injectable or oral medication for diabetes or [...] Procedures: - YOU MUST HAVE A RESPONSIBLE COMMERCIAL LOAN COLLECTION OFFICER TAKE YOU HOME. A OIL HOUSE ATTENDANT OR SCRATCH FINISHER CANNOT BE MADE A RESPONSIBLE COMMERCIAL LOAN COLLECTION OFFICER. - We recommend that a responsible person [...] call the Monday before. Your surgeon s payroll professional will tell you what time to call the office. - If you have not reached the departmental payroll professional by 5 P.M., call [phone] after 5 P.M. the day before your surgery. Please be aware that emergency situations arise, which may delay or change your surgical time. If this happens, we will notify you as soon as possible and regret any inconvenience. If you already have an Advance Directive, please fax a copy to [phone] or email to for it to be [...] Jamil Delacruz PA-C documented in this encounterOhio[facility] History and physical note * Jamil [...] COVID-19 original vaccine, age 12+ yr, monovalent (Classroom IQ- BIONTECH - PURPLE TOP) Only the first [...] pain, CHF, congenital heart defect, DVT/PE, recent SC and murmur/valvular heart disease. GI: See HPI. [...] 404 QTC Calculation (Bazett) 423 Calculated P [place] 32 Calculated R Mil[place] 14 Calculated T [place] 54 Impression NORMAL SINUS RHYTHM NORMAL ECG No results found for this or any previous visit (from the past 97675 hour(s)). Instructions Given to Patient: Instructions located in the after visit summary. Patient given verbal and written preop instructions and voices comprehension and compliance. SIGNATURE: Jamil Delacruz PA-C PATIENT NAME: Shey Obrien DATE: July 23, 2024 TIME: 1:07 PM PAGER/CONTACT #: [facility] History and physical note* Jamil Delacruz [...] COVID-19 original vaccine, age 12+ yr, monovalent (Classroom IQ- BIONTECH - PURPLE TOP) Only the first [...] pain, CHF, congenital heart defect, DVT/PE, recent SC and murmur/valvular heart disease. GI: See HPI. [...] 404 QTC Calculation (Bazett) 423 Calculated P [place] 32 Calculated R [place] 14 Calculated T [place] 54 Impression NORMAL SINUS RHYTHM NORMAL ECG No results found for this or any previous visit (from the past 32057 hour(s)). Instructions Given to Patient: Instructions located in the after visit summary. Patient given verbal and written preop instructions and voices comprehension and compliance. SIGNATURE: Jamil Delacruz PA-C PATIENT NAME: Shey Obrien DATE: July 23, 2024 TIME: 1:07 PM PAGER/CONTACT #: documented in this encounterOhiohealth [facility]ady [facility]12-23-2024 Telephone encounter Note * Telephone Encounter - Trip Lieberman MA - 07/01/2024 1:22 PM EST Sending this to Dr Jack [facility] [id number] Miscellaneous Notes* Telephone Encounter - Trip Lieberman MA - 07/01/2024 1:22 PM EST Sending this to Dr aJck * Telephone Encounter - Sandra Arcos NP - 06/29/2024 11:46 AM EST Did we call Dr. Jack's office and let him know that we took over the Aricept. If not can we please. I do not see it documented. Thank you documented in this encounterCedar County Memorial HospitalBlfsbnnqvq33-39-1729 Telephone encounter Note* Telephone Encounter - Sandra Arcos NP - 06/29/2024 11:46 AM EST Did we call Dr. Jack's office and let him know that we took over the Aricept. If not can we please. I do not see it documented. Thank you [facility] [id number] Telephone encounter Note* Telephone Encounter - Cassy Donnlely - 06/13/2024 11:39 AM EST Patient would like her Losartan 50 mg and Pantoprazole 40 mg changed to [facility] insteadof QUOC JN [facility] [id number] Miscellaneous Notes* Telephone Encounter - Cassy Donnelly - 06/13/2024 11:39 AM EST Patient would like her Losartan 50 mg and Pantoprazole 40 mg changed to [facility] insteadof QUOC JN documented in this [facility]11-06-2024 History of Present illness Narrative* Latrell Jack [...] OTC PRN. COPD (chronic obstructive pulmonary disease) ([facility]) Symptoms stable and continue spiriva. Use albuterol [...] index (BMI) of38.0 to 38.9 in adult ([facility]) Weight loss indicated. documented in this encounterCedar County Memorial HospitalJtajubpviy60-33-9916 NoteHNO ID: [id number] Author: XAVIER BOYD MD Service: ? Author [...] blinded, parallel group trial IRB NO.: #[id number] CYLINDER DYER: Pa Prakash MD COORDINATOR/Research Nurse/Supervisor Labor Gang: Abdelrahman He MD Phone/email: [phone], [email or web address] Consenting was performed in person prior to [...] CRITERIA Yes No 1. The patient lacks Bahamian language fluency or cannot understand the consent form/study procedures [] [x] 2. The patient is [] [x] 3. The patient has a BMI >45 [] [x] 4. The patient has undergone previous hiatal hernia repair [] [x] 5. The patient will undergo paraesophageal hernia repair with a concurrent bariatric procedure to reduce stomach volume [] [x][facility] 04-29-2024 History of Present illness Narrative* [...] blinded, parallel group trial IRB NO.: #[id number] CYLINDER DYER: Pa Prakash MD COORDINATOR/Research Nurse/Supervisor Labor Gang: Abdelrahman He MD Phone/email: [phone], [email or web address] Consenting was performed in person prior to [...] CRITERIA Yes No 1. The patient lacks Bahamian language fluency or cannot understand the consent [...] Moser - 04/29/2024 11:16 AM EDT [facility] Abdominal Core Health - HISTORY AND [...] UGI reviewed and uploaded. Large Type III [facility]. ASSESSMENT/PLAN: chani Obrien is a 73 [...] MD General Surgery documented in this encounterOhiohealth Grady [facility] Hospital10-21-2024 NoteHNO ID: [id number] Author: YAN MOSER, ? Service: ? Author Type: Physician Type: Progress Notes Filed: 04/29/2024 12:10 Note Text: [facility] for Abdominal Core Health - [...] - Consents obtained Yan Moser MD [facility]The [facility] Nurse Note* Diomedes Fiore MA - 04/29/2024 10:50 AM EDT What is the reason for your visit today? Consult Who is your referring physician? Dafne Spears Are you having poor oral intake? YES Have you had unintentional weight loss of 15 lbs/7 Kg in the last 3-6 months? NO Bowels: soft, more frequent Wound: none Temperature: No Drains: No [facility]10-[facility] Nurse Note* Diomedes Fiore MA - [...] No Drains: No documented in this encounterOhiohealth Grady [facility] Hospital10-14-2024 Telephone encounter Note * Telephone Encounter - Warwick, Danielle Palacio - 04/22/2024 5:32 PM EDT Spoke with PT she state no prior surgeries [facility]10-14-2024 Miscellaneous Notes* Telephone Encounter - WarwickDanielle - 04/22/2024 5:32 PM EDT Spoke with PT she state no prior surgeries documented in this encounterOhiohealth [facility]ady [facility] Hospital10-03-2024 History of Present illness Narrative* Mao [...] No history of alcohol/substance abuse. Reformed smoker. [place] language Bahamian. Completed high school education as well as some college. Described self asa C student. 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 Motor/Speed of Processing: Left-handed. 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 Recognition discriminability 69th [...] of this individual. Please contact me with [employer] at [phone]. documented in this encounterCedar County Memorial HospitalSwllkpysku32-20-7336 NoteEndoscopic Procedure Report - Other Patient: SHEY [...] 1 tab, Oral, Daily Flonase 0.05 mg/inh [place]: 2 spray(s), Nasal, Daily, Refill(s) 0, Dry [...] a day (at bedtime) Flonase 0.05 mg/inh [place] 2 spray(s), Nasal, Daily losartan 25 mg [...] All Problems HTN (hypertension) / SNOMED CT 9346924781 / Confirmed Chronic obstructive pulmonary disease / SNOMED CT 41394745 / Confirmed Insomnia / SNOMED CT 619059956 / Confirmed Seasonal allergic rhinitis / SNOMED CT 417073738 / Confirmed Dyslipidemia / SNOMED CT 5566819910 / Confirmed BMI 39.0-39.9,adult / SNOMED CT 570696277 / Confirmed Morbid obesity / SNOMED CT 656579122 / Confirmed GERD (gastroesophageal reflux disease) / SNOMED CT 552901459 / Confirmed Hiatal hernia / SNOMED CT 953760533 / Confirmed EDWIN (obstructive sleep apnea) / SNOMED CT 579903880 / Confirmed Lower extremity edema / SNOMED CT 543284582 / Confirmed TIA (transient ischemic attack) / SNOMED CT 979837597 / Confirmed Screening for malignant neoplasm of colon / SNOMED CT 851956061 / Confirmed Dysphagia / SNOMED CT 13551266 / Confirmed Histories Past Medical History: Resolved Hernia (896330518): Resolved. Sleep apnea (637020916): Resolved. Family History: Father Alcoholism Primary malignant neoplasm of lung COPD Mother Cardiac arrest Alzheimer's disease Procedure history: Colonoscopy (190457334) on 10/13/2023 at 73 Years. ORIF - Open reduction of fracture of ankle with internal fixation (316742922706415). Meniscal repair (048774789). Tonsillectomy (048658162). Hand tendon repaired (181816772). Social History Social & Psychosocial Habits Alcohol [...] NTND Impression and Plan Impression: DYSPHAGIA Plan: -[facility] HospitalComment on above:Result Comment: wrong folder Electronically Signed By: Yovanny OLIVO, Dafne Torres\.maikol\Date and Time Signed: 03/20/24 12:47 [id number] History of Present illness Narrative* Mao Morrow, [...] No history of alcohol/substance abuse. Reformed smoker. [place] language Bahamian. Completed high school education as well as some college. Describes itself as a C student. 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 Single, never , no children. Resides with her niece and boyfriend. MEDICAL HISTORY/MEDICATION: Past Medical History: Diagnosis Date Anxiety 08/2023 At high risk for falls Benign essential hypertension ([facility]/HCC) Bilateral primary osteoarthritis of knee Chronic bilateral low back pain with left-sided sciatica Chronic insomnia COPD, mild ([facility]/HCC) Dyslipidemia ([facility]) Edema of extremities Encounter for long-term (current) use of medications Fracture of distal end of fibula, sequela Ganglion cyst of flexor tendon sheath of finger, left Hiatal hernia with gastroesophageal reflux disease without esophagitis Memory loss Morbid obesity with body mass index (BMI) of 40.0 to 49.9 ([facility]) EDWIN (obstructive sleep apnea) Osteopenia of lumbar spine Painful orthopaedic hardware (HCC) ([facility]) Postmenopausal Seasonal allergic rhinitis due to pollen [...] individual. Please contact me with anyquestions at [phone]. documented in this encounterCedar County Memorial HospitalWhiffovyar37-01-1929 Hospital Discharge instructions Patient Education 03/20/2024 13:07:59 [...] Follow these instructions at home: Medicines Take jtpc-fnp-vacrltu and prescription medicines only as told by [...] or drinks. ?Garlic or onions. ?Spicy foods. ?[place] fruits. ?Tomato-based foods. ?Fatty or fried foods. [...] provider. Document Revised: 01/09/2023 Document Reviewed: 01/09/2023 [employer] Patient Education 2023 WebVet. 03/20/2024 13:07:56 Gastritis, Adult, Meby-hv-Mipe Gastritis, Adult Gastritis is irritation and swelling [...] Follow these instructions at home: Medicines Take dyjm-ymb-riepfxm and prescription medicines only as told by [...] provider. Document Revised: 10/30/2021 Document Reviewed: 10/30/2021 [employer] Patient Education 2023 WebVet. 03/20/2024 13:07:48 Hiatal Hernia Hiatal Hernia A [...] reduce GERD symptoms. Medicines. These may include: ?Wugs-syz-owuxqha antacids. ?Medicines that make your stomach empty [...] may include: ?Fatty foods, like fried foods. ?[place] fruits, like oranges or lemon. ?Other foods [...] Do not drink alcohol. General instructions Take leed-apn-rfohzme and prescription medicines only as told by [...] provider. Document Revised: 08/23/2022 Document Reviewed: 08/23/2022 [employer] Patient Education 2023 WebVet. 03/20/2024 13:07:46 Endoscopy, Care After Procedure [facility]) Endoscopy Care After Procedure Please read the instructions outlined below and refer to this sheet in the next few weeks. These discharge instructions provide you with general information on [facility] Your doctor may also give you [...] Document Re-Released: 12/18/2006 ExitCare Patient Information 2009 [employer]aks. Follow Up Care 02/26/2024 09:52:05 With:Yovanny OLIVO, SENAIT Sifuentes, [facility] Address: When: Unknown Comments:Call for any problems. Office will call to schedule follow up appointment [facility] 09-11-2024 Evaluation + Plan note Future Scheduled Tests Radiology* XR Esophagus 03/20/24 [facility] 09-11-2024 NotePatient Education - Text Endoscopy Care After Procedure Please read the instructions outlined below and refer to this sheet in the next few weeks. These discharge instructions provide you with general information on caring for [facility] Your doctor may also give you [...] Document Re-Released: 12/18/2006 ExitCare? Patient Information ?2009 [employer]. Gastroenterology Hiatal Hernia A hiatal hernia occurs [...] symptoms. ? Medicines. These may include: ? Tupf-imu-gbldzpb antacids. ? Medicines that make your stomach [...] ? Avoid putting pressu (more content not included)...[facility] NoteEndoscopic Procedure Report - [...] if surgery referral is indicated, will be orderedMagruder Memorial HospitalComment on above:Result Comment: Electronically Signed By: Yovanny OLIVO, Dafne Torres\.br\Date and Time Signed: 03/20/24 12:58 EDTOther Comment: Missing Attachment - attachment storage system not supported [id number] Can be viewed in source systemMissing Attachment - attachment storage system not supported [id number] Can be viewed [facility] systemMissing Attachment - attachment storage system not supported 7273213 Can be viewed in source systemMissing Attachment - attachment storage system not supported 7668774 Can be viewed in source systemMissing Attachment - attachment storage system not supported 9012301 Can be viewed in source systemMissing Attachment - attachment storage system not supported 0315539 Can be viewed in source [id number] NoteEndoscopic Procedure Report - Other Patient: SHEY [...] 1 tab, Oral, Daily Flonase 0.05 mg/inh [place]: 2 spray(s), Nasal, Daily, Refill(s) 0, Dry [...] a day (at bedtime) Flonase 0.05 mg/inh [place] 2 spray(s), Nasal, Daily losartan 25 mg [...] All Problems HTN (hypertension) / SNOMED CT 6697442144 / Confirmed Chronic obstructive pulmonary disease / SNOMED CT 43038817 / Confirmed Insomnia / SNOMED CT 069321497 / Confirmed Seasonal allergic rhinitis / SNOMED CT 675697724 / Confirmed Dyslipidemia / SNOMED CT 9572245246 / Confirmed BMI 39.0-39.9,adult / SNOMED CT 477581713 / Confirmed Morbid obesity / SNOMED CT 358249940 / Confirmed GERD (gastroesophageal reflux disease) / SNOMED CT 736858258 / Confirmed Hiatal hernia / SNOMED CT 264788045 / Confirmed EDWIN (obstructive sleep apnea) / SNOMED CT 796061717 / Confirmed Lower extremity edema / SNOMED CT 801792697 / Confirmed TIA (transient ischemic attack) / SNOMED CT 610025486 / Confirmed Screening for malignant neoplasm of colon / SNOMED CT 599516426 / Confirmed Dysphagia / SNOMED CT 35050061 / Confirmed Histories Past Medical History: Resolved Hernia (475901586): Resolved. Sleep apnea (147171462): Resolved. Family History: Father Alcoholism Primary malignant neoplasm of lung COPD Mother Cardiac arrest Alzheimer's disease Procedure history: Colonoscopy (946374126) on 10/13/2023 at 73 Years. ORIF - Open reduction of fracture of ankle with internal fixation (178722624919065). Meniscal repair (308805634). Tonsillectomy (343416026). Hand tendon repaired (773080405). Social History Social & Psychosocial Habits Alcohol [...] NTND Impression and Plan Impression: DYSPHAGIA Plan: -[facility] HospitalComment on above:Result Comment: Electronically Signed By: Yovanny OLIVO, Dafne Torres\.br\Date and Time Signed: 03/20/24 12:47 [id number] History of Present illness Narrative* Diomedes Fitzgerald, [...] high risk for falls Benign essential hypertension ([facility]) Bilateral primary osteoarthritis of knee Chronic bilateral [...] of lumbar spine Painful orthopaedic hardware (HCC) ([facility]) Postmenopausal Seasonal allergic rhinitis due to pollen [...] instructions Return to clinic: documented in this encounterCedar County Memorial HospitalHqzfwajlcz45-87-1030 Note [id number] Community Hospital [facility] Evaluation + Plan noteExtracted from:Title:ANES Post-operative Note - GeneralAuthor:Shaji Bethea Jr., DO GDate:10/13/23 Plan Transfer/Discharge: Transfer/Discharge Discharge when meets criteria ( From PACU to Ambulatory Surgery Unit, and To home ). Extracted from:Title:ANES Pre-operative Note - EndoAuthor:Shaji Bethea Jr., DO GDate:10/13/[address] [place] [employer] Anesthesiologists (ASA) physical status classification: Class III. Anesthetic Preoperative Plan: Anesthesia General, and -TIVA.[facility]04-05-2024 Hospital Discharge instructions Patient Education 10/13/2023 [...] With:Pa WEBB Address: [address], [address] [phone]- Business (1) When: only if needed [facility]04-05-2024 NotePatient: HSEY OBRIEN Age: 73 years Sex: Female : 1950 Associated Diagnoses: None Author: Pa WEBB MD Subjective no changes to & PFOhioHealth Riverside Methodist HospitalComment on above:Result Comment: Electronically Signed By: Pa WEBB MD\.br\Date and Time Signed: 10/13/23 09:45 [id number] NoteChief Complaint consultation for colonoscopy [facility] Staff 72 year old female presents [...] a day (at bedtime) Flonase 0.05 mg/inh [place], 2 spray(s), Nasal, Daily losartan 25 mg [...] Alcoholism: Father. Alzheimer's di (more content not included)...[facility] HospitalComment on above:Result Comment: Electronically Signed By: TRACEY OLIVO, Pa Lynn\Date and Time Signed: 09/12/23 10:16 [id number] History of Present illness Narrative* Latrell Jack [...] referral to General Surgery documented in this encounterCedar County Memorial HospitalAwpwpctjbq98-65-0182 NoteEXAMINATION: XR CHEST 1 V HISTORY: SHORTNESS [...] Electronically authenticated by: MEHNAZ SANTIAGO Date: 2021-11-02 16:39[facility]03-04-2022 NotePROCEDURE: XR ANKLE RT MIN 3 [...] Electronically authenticated by: WILLARD ANAND Date: 2021-09-10 09:02[facility]03-04-2022 NotePROCEDURE: XR ANKLE RT 2V COMPARISON: 03/02/2020. HISTORY: Pain FINDINGS: 35 seconds of fluoroscopy. 5 fluoroscopic images Interval removal of internal fixation hardware. Components of 2 fractured screws across the tibiofibular syndesmosis remain on image #5 IMPRESSION: Removal of lateral fibular plate and screws Electronically authenticated by: WILLARD ANAND Date: 2021-09-10 08:30[facility] CenterDischar summary Author Tra Hobson [facility] HospitalNote Date/TimeJune 2024 3:46[place] [address] Discharge Summary Signed Patient: Shey Obrien MR#: [id number] : 1950 Acct:[id number] Age/Sex: 74 / F Adm Date: 5 Loc: Room: [address] [place] [address]: Erik Kim MD Copies to: [...] boyfriend Employment: retired 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 Patient was treated with Remeron. [...] Instructions: Important Contact Information You can call [facility] at [phone] any timeday or night if you have emergent questions or question regarding discharge instructions. If at anytime you are feeling an increase inyour psychiatric symptoms, call your physician or behavioral healthcare provider. If any time you have thoughts of harming yourself or others contact one of the following: Call (available 30/01) Crisis Text Line (available 30/01) text 4HOPE to [phone] [facility] Hope Line (available 8 a.m. Midnight) call [phone]-IFVU ([phone]) Instructions: Depression in adults - Discharge instructions, [facility] [place] [...] Up: [employer] [facility] [employer] [Outside] - 12/17/24 (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, if you [...] signed by Tra Hobson MD> 12/16/24 1546 [facility] Work Phone: Evaluation + Plan note Future Appointments Appointment Date:03/20/2024 12:15:00 PM Scheduled Provider: Location:[facility] Appointment Type:Surgery [facility] Evaluation note* Diagnosis Essential [...] 40.0-44.9, adult (Z68.41) documented in this encounter [facility] HealthcareEvaluation note* Diagnosis Memory loss- Primary Word finding difficulty EDWIN on CPAP Other insomnia Other chronic pain Generalized anxiety disorder (CMS/HCC) Generalized anxiety disorder Severe episode of recurrent major depressive disorder, 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) documented in this encounter [facility] HealthcareEvaluation note* Diagnosis Paraesophageal hernia- Primary Diaphragmatic hernia without mention of obstruction or gangrene [facility] Diagnosis Preoperative examination- Primary Preoperative examination, unspecified Paraesophageal hernia Diaphragmatic hernia without mention of obstruction or gangrene Abnormal results of liver function studies Nonspecific abnormal results of liver function study Abnormal coagulation profile documented in this encounter [facility] HospitalEvaluation [facility]* Diagnosis Essential hypertension, benign (CMS/HCC)- [...] in adult (CMS/HCC) documented in this encounter [facility] HealthcareEvaluation note* Diagnosis Essential [...] index (BMI) of38.0 to 38.9 in adult ([facility]) Essential hypertension, benign ([facility]) Essential hypertension, benign Hiatal hernia with gastroesophageal reflux disease without esophagitis documented in this encounter [facility] HealthcareEvaluation note* Diagnosis Memory loss- Primary Word finding difficulty EDWIN on CPAP Other insomnia Other chronic pain Generalized anxiety disorder ([facility]) Generalized anxiety disorder [facility] encounter [facility] HealthcareEvaluation note* Diagnosis Memory loss- Primary 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[facility]) Senile dementia, uncomplicated Mild cognitive impairment Mild cognitive impairment, so stated EDWIN (obstructive sleep apnea) Obstructive sleep apnea (adult) (pediatric) documented in this encounter [facility] HealthcareEvaluation note* Diagnosis Essential hypertension, benign ([facility]/HCC)- Primary Essential hypertension, benign Chronic obstructive pulmonary disease, unspecified COPD type ([facility]/HCC) Primary insomnia Persistent disorder of initiating or maintaining sleep Primary osteoarthritis of both knees Hiatal hernia with gastroesophageal reflux disease without esophagitis Seasonal allergic rhinitis due to pollen Screening for colon cancer Special screening for malignant neoplasms, colon Morbid obesity due to excess calories ([facility]) Dyslipidemia ([facility]) Other and unspecified hyperlipidemia Encounter for long-term (current) use of medications Encounter for long-term (current) use of other medications Body mass index [BMI] 40.0-44.9, adult (Z68.41) Essential hypertension, benign ([facility]/HCC)- Primary Essential hypertension, benign Dysphagia, unspecified type 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[facility]) Senile dementia, uncomplicated Chronic obstructive pulmonary disease, unspecified COPD type ([facility]/HCC) Hiatal hernia with gastroesophageal reflux disease [...] -CXR pending [facility] Pre-op evaluation- Primary Preoperative [...] respiratory abnormality [facility] Diagnosis Essential hypertension, benign (CMS/HCC)- [...] or maintaining sleep [facility] Essential hypertension, benign (CMS/HCC)- [...] or maintaining sleep [facility] Diagnosis Pre-op evaluation- Primary Preoperative examination, unspecified Preoperative examination Preoperative examination, unspecified Paraesophageal hernia Diaphragmatic hernia without mention of obstruction or gangrene Chronic obstructive pulmonary disease, unspecified COPD type ([facility]) CHENEY (dyspnea on exertion) Other dyspnea and [...] following surgery [facility] Diagnosis Essential hypertension, benign (CMS/HCC)- [...] index (BMI) of38.0 to 38.9 in adult ([facility]) Medicare annual wellness visit, subsequent- Primary Prediabetes Other abnormal glucose Dyslipidemia ([facility]) Other and unspecified hyperlipidemia Encounter for long-term (current) use of medications Encounter for long-term (current) use of other medications Essential hypertension, benign (CMS/HCC) Essential hypertension, benign Class 2 severe obesity due to excess calories with serious comorbidity and body mass index (BMI) of36.0 to 36.9 in adult ([facility]) Chronic obstructive pulmonary disease, unspecified COPD type (CMS/HCC) 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[facility]) Senile dementia, uncomplicated [facility] Diagnosis Essential hypertension, benign ([facility]/HCC)- Primary Essential hypertension, benign Chronic obstructive pulmonary disease, unspecified COPD type (CMS/HCC) Primary insomnia Persistent disorder of initiating or maintaining sleep Primary osteoarthritis of both knees Hiatal hernia with gastroesophageal reflux disease without esophagitis Seasonal allergic rhinitis due to pollen Screening for colon cancer Special screening for malignant neoplasms, colon Morbid obesity due to excess calories ([facility]) Dyslipidemia (CMS/HCC) Other and unspecified hyperlipidemia Encounter for long-term (current) use of medications Encounter for long-term (current) use of other medications Body mass index [BMI] 40.0-44.9, adult (Z68.41) Essential hypertension, benign ([facility]/HCC)- Primary Essential hypertension, benign Dysphagia, unspecified type 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[facility]/HCC) Senile dementia, uncomplicated Chronic obstructive pulmonary [...] index (BMI) of38.0 to 38.9 in adult ([facility]) Medicare annual wellness visit, subsequent- Primary Prediabetes Other abnormal glucose Dyslipidemia ([facility]) Other and unspecified hyperlipidemia Encounter for long-term (current) use of medications Encounter for long-term (current) use of other medications Essential hypertension, benign ([facility]/HCC) Essential hypertension, benign Class 2 severe obesity due to excess calories with serious comorbidity and body mass index (BMI) of36.0 to 36.9 in adult ([facility]) Chronic obstructive pulmonary disease, unspecified COPD type (CMS/HCC) 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[facility]) Senile dementia, uncomplicated Chronic obstructive pulmonary disease, unspecified COPD type ([facility]/HCC) Primary insomnia Persistent disorder of initiating or maintaining sleep [facility]* Diagnosis Essential hypertension, benign ([facility]/HCC)- Primary Essential hypertension, benign Chronic obstructive pulmonary disease, unspecified COPD type ([facility]/HCC) Primary insomnia Persistent disorder of initiating or maintaining sleep Primary osteoarthritis of both knees Hiatal hernia with gastroesophageal reflux disease without esophagitis Seasonal allergic rhinitis due to pollen Screening for colon cancer Special screening for malignant neoplasms, colon Morbid obesity due to excess calories ([facility]) Dyslipidemia ([facility]) Other and unspecified hyperlipidemia Encounter for long-term (current) use of medications Encounter for long-term (current) use of other medications Body mass index [BMI] 40.0-44.9, adult (Z68.41) Essential hypertension, benign ([facility]/HCC)- Primary Essential hypertension, benign Dysphagia, unspecified type 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[facility]/HCC) Senile dementia, uncomplicated Chronic obstructive pulmonary disease, unspecified COPD type (CMS/HCC) Hiatal hernia with gastroesophageal reflux disease without esophagitis Primary osteoarthritis of both knees Primary insomnia Persistent disorder of initiating or maintaining sleep EDWIN (obstructive sleep apnea) Obstructive sleep apnea (adult) (pediatric) Essential hypertension, benign ([facility]/HCC)- Primary Essential hypertension, benign Chronic obstructive [...] index (BMI) of38.0 to 38.9 in adult ([facility]) Medicare annual wellness visit, subsequent- Primary Prediabetes Other abnormal glucose Dyslipidemia ([facility]) Other and unspecified hyperlipidemia Encounter for long-term (current) use of medications Encounter for long-term (current) use of other medications Essential hypertension, benign ([facility]/HCC) Essential hypertension, benign Class 2 severe obesity due to excess calories with serious comorbidity and body mass index (BMI) of36.0 to 36.9 in adult ([facility]) Chronic obstructive pulmonary disease, unspecified COPD type ([facility]/HCC) 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[facility]) Senile dementia, uncomplicated Primary insomnia Persistent disorder of initiating or maintaining sleep Chronic obstructive pulmonary disease, unspecified COPD type ([facility]/HCC) documented in this encounter [facility]* Diagnosis Essential hypertension, benign ([facility]/HCC)- Primary Essential hypertension, benign Chronic obstructive pulmonary disease, unspecified COPD type (CMS/HCC) Primary insomnia Persistent disorder of initiating or maintaining sleep Primary osteoarthritis of both knees Hiatal hernia with gastroesophageal reflux disease without esophagitis Seasonal allergic rhinitis due to pollen Screening for colon cancer Special screening for malignant neoplasms, colon Morbid obesity due to excess calories ([facility]) Dyslipidemia ([facility]) Other and unspecified hyperlipidemia Encounter for long-term (current) use of medications Encounter for long-term (current) use of other medications Body mass index [BMI] 40.0-44.9, adult (Z68.41) Essential hypertension, benign ([facility]/HCC)- Primary Essential hypertension, benign Dysphagia, unspecified type 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[facility]/HCC) Senile dementia, uncomplicated Chronic obstructive pulmonary disease, unspecified COPD type ([facility]/HCC) Hiatal hernia with gastroesophageal reflux disease without esophagitis Primary osteoarthritis of both knees Primary insomnia Persistent disorder of initiating or maintaining sleep EDWIN (obstructive sleep apnea) Obstructive sleep apnea (adult) (pediatric) Essential hypertension, benign ([facility]/HCC)- Primary Essential hypertension, benign Chronic obstructive pulmonary disease, unspecified COPD type ([facility]/HCC) Hiatal hernia with gastroesophageal reflux disease without esophagitis EDWIN (obstructive sleep apnea) Obstructive sleep apnea (adult) (pediatric) Primary osteoarthritis of both knees Primary insomnia Persistent disorder of initiating or maintaining sleep Class 2 severe obesity due to excess calories with serious comorbidity and body mass index (BMI) of38.0 to 38.9 in adult ([facility]) Medicare annual wellness visit, subsequent- Primary Prediabetes Other abnormal glucose Dyslipidemia ([facility]) Other and unspecified hyperlipidemia Encounter for long-term (current) use of medications Encounter for long-term (current) use of other medications Essential hypertension, benign ([facility]) Essential hypertension, benign Class 2 severe obesity due to excess calories with serious comorbidity and body mass index (BMI) of36.0 to 36.9 in adult ([facility]) Chronic obstructive pulmonary disease, unspecified COPD type ([facility]/HCC) 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[facility]) Senile dementia, uncomplicated Degenerative lumbar spinal stenosis- Primary Spinal stenosis of lumbar region Chronic obstructive pulmonary disease, unspecified COPD type (CMS/HCC) documented in this encounter [facility]* Diagnosis Essential [...] colon Morbid obesity due to excess calories ([facility]) Dyslipidemia Other and unspecified hyperlipidemia Encounter for [...] index (BMI) of38.0 to 38.9 in adult ([facility]) Medicare annual wellness visit, subsequent- Primary Prediabetes Other abnormal glucose Dyslipidemia Other and unspecified hyperlipidemia Encounter for long-term (current) use of medications Encounter for long-term (current) use of other medications Essential hypertension, benign Essential hypertension, benign Class 2 severe obesity due to excess calories with serious comorbidity and body mass index (BMI) of36.0 to 36.9 in adult ([facility]) Chronic obstructive pulmonary disease, [...] hazards to health documented in this encounter [facility] Narrative No data available for this section [facility] No data available for this section [facility] Discharge instructionsAmbulatory Orders* Referral to ENT Time Frame: 04/10/25, Location: None Selected * Referral to Orthopedic Surgery Time Frame: 04/10/25, Location: None Selected [facility] Work Phone: Progress note No data available for this section [facility])* Consultation (Routine) - Pending ReviewSpecialtyDiagnoses / ProceduresReferred By Contact Referred To ContactGeneral Surgery Diagnoses Screening for colon cancer Procedures [place] OFFICE/OUTPATIENT [facility] 60 MINUTES Latrell Jack MD [address] [place] [address] [place] [address] Referral IDStatusReasonStart DateExpiration DateVisits RequestedVisits [id number] Review Specialty Services Required / [facility] [...] No December 17 2:30pm Hospital Course Note [facility] SURGERY Clinical Discharge Summary PERSON INFORMATION Name SHEY OBRIEN Age 68 Years 52 Sex FEMALE Language Bahamian PCP LATRELL JACK Marital Status Single Med Service Ambulatory Surgery Acct# Arrival 02/04/19 11:44:00 Visit Reason SURGERY - RELEASE TRIGGER FINGER LEFT RING FINGER AND E/O CYST LEFT RING FINGER Acuity LOS 012 05:38 Address: [address] [place] [id number] Comment: PROVIDER INFORMATION VITALS INFORMATION Vital Sign [...] COMPUTED TOMOGRAPHY THORAX W/O CNTRST Katarzyna Snyder, NEWSPAPER PUBLISHER.ROTOR CASTING MACHINE OPERATOR [address] [place], [place] [id number] Ct [facility] [place] [address] Referral IDStatusReasonStoverton DateExpiration DateVisits RequestedVisits [id number] Request Auto-Generated Referral /[id number] / ProceduresReferred By ContactReferred To ContactRadiology Diagnoses Memory loss Procedures MR brain wo contrast Diomedes Fitzgerald, [address] [place] [id number] Referral IDStatusReasonStart DateExpiration DateVisits RequestedVisits [id number] Review/[id number] / ProceduresReferred By ContactReferred To Contact Diagnoses Preoperative examination Paraesophageal hernia Procedures REFER TO [facility] - PREOPERATIVE OPTIMIZATION OFFICE/OUTPATIENT [facility] 60 MINUTES aKtarzyna Carter, NEWSPAPER PUBLISHER.ROTOR CASTING MACHINE OPERATOR [address] [place], [place] [id number] Referral IDStatusReasonStart DateExpiration DateVisits RequestedVisits [id number] PCP Requested Referral /[id number] / ProceduresReferred By ContactReferred To ContactSUBUR[facility] Diagnoses Preoperative examination Paraesophageal hernia Procedures ECG COMPLETE ECG ROUTINE ECG W/LEAST 12 LDS W/I&R Katarzyna Carter, NEWSPAPER PUBLISHER.ROTOR CASTING MACHINE OPERATOR [address] [place] [address] [facility] [place] [address] [place] [address] Referral IDStatusReasonStart DateExpiration DateVisits RequestedVisits [id number] Request Auto-Generated Referral Chief Complaint and Reason for Visit Chief Complaint Admit Date January 21, 2025 3:32 pm [facility] [place] April 10, 2025 11:27am Reason for Visit [...] :27am Chief Complaint Admit Date Hospital [facility] [place] April 10, 2025 11:27am April 23, 2025 3 :04pm TB CONSULT DR JACK LT SHOULDER PAIN [facility] April 24, 2025 10:39am Chief Complaint Admit Date Hospital [facility] [place] April 10, 2025 11:27am April 23, 2025 3 :04pm TB CONSULT DR JACK LT SHOULDER PAIN [facility]X [facility] April 24, 2025 10:39am Established Patient [...] Apr 1:07pm Chief Complaint Admit Date [facility] April 10, 2025 11:27am BH April 23, [...] section and content) DATE CREATED AUTHOR 02/17/2019 [facility] DATE CREATED AUTHOR AUTHOR'S ORGANIZ ATION 08/03/2022 [facility] DATE CREATED AUTHOR AUTHOR'S ORGANIZ ATION 03/28/2024 [facility] DATE CREATED AUTHOR AUTHOR'S ORGANIZ ATION 04/04/2024 [facility] DATE CREATED AUTHOR AUTHOR'S ORGANIZ ATION 12/13/2024 [facility] DATE CREATED AUTHOR AUTHOR'S ORGANIZ ATION 12/17/2024 [facility] DATE CREATED AUTHOR AUTHOR'S ORGANIZ ATION 02/25/2025 [facility] DATE CREATED AUTHOR AUTHOR'S ORGANIZ ATION 04/25/2025 [facility] DATE CREATED AUTHOR AUTHOR'S ORGANIZ ATION 04/25/2025 [facility] DATE CREATED AUTHOR AUTHOR'S ORGANIZ ATION 05/03/2025 [facility] Care Teams (unrecognized sec tion and [...] Latrell Jack MD [address] [place] [address] PCP - GeneralFamily Medicine08/05/23Team MemberRelationshipSpecialtyStart DateEnd Date Latrell Jack MD [address] [place] [address] PCP - GeneralFamily Medicine08/05/23Team MemberRelationshipSpecialtyStart DateEnd Date Latrell Jack MD [address] [place] [address] PCP - GeneralFamily Medicine08/05/23Team MemberRelationshipSpecialtyStart DateEnd Date Dafne Spears MD [address] [address] Internal Medicine04/02/24Team MemberRelationshipSpecialtyStart DateEnd Date Dafne Spears MD [address] [facility] [address] [address] Internal Medicine04/02/24Team MemberRelationshipSpecialtyStart DateEnd Date Dafne Spears MD [address] [place] [address] Internal Medicine04/02/24Team MemberRelationshipSpecialtyStart DateEnd Date Latrell Jack MD [address] [place] [address] PCP - GeneralFamily Medicine08/05/23Team MemberRelationshipSpecialtyStart DateEnd Date Latrell Jack MD [address] [place] [address] PCP - GeneralFamily Medicine08/05/23Team MemberRelationshipSpecialtyStart DateEnd Date Latrell Jack MD [address] [place] [address] PCP - GeneralFamily Medicine08/05/23 Diomedes Fitzgerald DO [address] [place] [address] Referring QyepwopugEdgzgmymk02/21/24Team MemberRelationshipSpecialtyStart Date End Date Latrell Jack MD [address] [place] [address] PCP - GeneralFamily Medicine08/05/23Team MemberRelationshipSpecialtyStart DateEnd Date Latrell Jack MD [address] [place] [address] PCP - GeneralFamily Medicine08/05/23Team MemberRelationshipSpecialtyStart DateEnd Date aLtrell Jack MD [address] [place] [address] PCP - GeneralFamily Medicine08/05/23Team MemberRelationshipSpecialtyStart DateEnd Date Latrell Jack MD [address] [place] [address] PCP - Generalmily Medicine08/05/23Team MemberRelationshipSpecialtyStart DateEnd Date Latrell Jack MD [address] [place] [address] PCP - Generalmily Medicine08/05/23Team MemberRelationshipSpecialtyStart DateEnd Date Latrell Jack MD [address] [place] [address] PCP - Generalmily Medicine08/05/23 Diomedes Fitzgerald DO [address] [place] [address] Referring TkbbcddwbSxsprbxjz89/21/24Team MemberRelationshipSpecialtyStart Date End Date Latrell Jack MD [address] [place] [address] PCP - GeneralFamily Medicine08/05/23 Diomedes Fitzgerald DO [address] [place] [address] Referring LgiedjgifWbgmxdzru56/21/24Team MemberRelationshipSpecialtyStart Date End Date Latrell Jack MD [address] [place] [address] PCP - GeneralFamily Medicine08/05/23 Diomedes Fitzgerald DO [address] [place] [address] Referring LlhzsobekKulphtykh54/21/24Team MemberRelationshipSpecialtyStart Date End Date Latrell Jack MD [address] [place] [address] PCP - GeneralFamily Ymhkgujx70/23/24 Dafne Spears MD [address] [address] Internal Medicine04/02/24Team MemberRelationshipSpecialtyStart DateEnd Date Latrell Jack MD [address] [place] [address] PCP - GeneralFamily Hijjnehp24/23/24 Dafne Spears MD [address] [address] Internal Medicine04/02/24Team MemberRelationshipSpecialtyStart DateEnd Date Latrell Jack MD [address] [place] [address] PCP - GeneralFamily Medicine08/05/23 Diomedes Fitzgerald DO [address] [place] [address] Referring EzlbxjshzIbtdrvokb47/21/24Team MemberRelationshipSpecialtyStart Date End Date Latrell Jack MD [address] [place] [address] PCP - GeneralFamily Medicine08/05/23 Diomedes Fitzgerald DO [address] [place] [address] Referring EtebjnlhfRkpgiopda91/21/24Team MemberRelationshipSpecialtyStart Date End Date Latrell Jack MD [address] [place] [address] [facility] Apjhoedc43/23/24 Dafne Spears MD [address] [place] [address] Internal Medicine04/02/24Team MemberRelationshipSpecialtyStart DateEnd Date Latrell Jack MD [address] [place] [address] PCP - Generalmily Medicine08/05/23 Latrell Jack MD [address] [place] [address] PCP - [facility]08/16/24 Diomedes Fitzgerald DO [address] [place] [address] Referring WfokfluxaCtuflhuly59/21/24Team MemberRelationshipSpecialtyStart Date End Date Latrell Jack MD [address] [place] [address] [facility] - [facility]08/05/23 Latrell Jack MD [address] [place] [address] PCP - [facility]08/16/24 Diomedes Fitzgeradl DO [address] [place] [address] Referring YpvtnaztkYdmnrwsdy17/21/24Team MemberRelationshipSpecialtyStart Date End Date Latrell Jack MD [address] [place] [address] PCP - [facility] Medicine08/05/23 Latrell Jack MD [address] [place] [address] PCP - [facility]08/16/24 Diomedes Fitzgerald DO [address] [place] [address] Referring PbkyqsyeyNmwjrexxr99/21/24Team MemberRelationshipSpecialtyStart Date End Date Latrell Jack MD [address] [place] [address] P[facility] - [facility] Medicine08/05/23 Latrell Jack MD [address] [place] [address] PCP - [facility]08/16/24 Diomedes Fitzgerald DO [address] [place] [address] Referring QooinkcloCrbaanurl33/21/24Team MemberRelationshipSpecialtyStart Date End Date Latrell Jack MD [address] [place] [address] P[facility] - [facility] Medicine08/05/23 Latrell Jack MD [address] [place] [address] PCP - [facility]CO [facility]08/16/24 Diomedes Fitzgerald DO [address] [place] [address] Referring MqdxiryucDfyfydaet10/21/24Te MemberRelationshipSpecialtyStart Date End Date Latrell Jack MD [address] [place] [address] P[facility] - [facility]08/05/23 Latrell Jack MD [address] [place] [address] PCP - [facility]08/16/24 Diomedes Fitzgerald DO [address] [place] [address] Referring HulxuhalkQfqhxsfkq52/21/24Team MemberRelationshipSpecialtyStart Date End Date Latrell Jack MD [address] [place] [address] PCP - [facility]08/05/23 Latrell Jack MD [address] [place] [address] PCP - O [facility]08/16/24 Diomedes Fitzgerald DO [address] [place] [address] Referring IrnhboedhWbajdgiyj17/21/24 Team Status: Inactive Member Role Status Dates [...] Babs Romero ProviderActiveStart: December 13, 2024 Radha Romeroending ProviderActiveStart: December 13, 2024 Erik Kim MDOther ProviderActiveStart: December 13, 2024 Team MemberRelationshipSpecialtyStart DateEnd Date Latrell Jack MD [address] [place] [address] PCP - [facility] Medicine08/05/23 Latrell Jack MD [address] [place] [address] PCP - [facility]08/16/24 Diomedes Fitzgerald DO [address] [place] [address] Referring XhodzevnlHgemlsbes81/21/24 Sugar Arenas, REGISTERED DIETETIC TECHNICIAN [address] [place] [address] Social [facility]erAd[facility]01/16/25Team MemberRelationshipSpecialtyStart DateEnd Date Latrell Jack MD [address] [place] [address] PCP - [facility]08/05/23 Latrell Jack MD [address] [place] [address] PCP - [facility]08/16/24 Diomedes Fitzgerald DO [address] [place] [address] Referring DqxrozhlfFhvzlgfvi12/21/24 Sugar Arenas, REGISTERED DIETETIC TECHNICIAN [address] [place] [facility] [place] [address] Social WorkerAdventhealth [facility]01/16/25Team MemberRelationshipSpecialtyStart DateEnd Date Latrell Jack MD [address] [place] [address] PCP - [facility]08/05/23 Latrell Jack MD [address] [place] [address] PCP - ACO [facility]08/16/24 Diomedes Fitzgerald DO [address] [place] [address] Referring MzdifehjqBkxscosmf01/21/24 Sugar Arenas, [facility] [address] [place] [address] Social WorkerAdventhealth Redmond01/16/25Team MemberRelationshipSpecialtyStart DateEnd Date Latrell Jack MD [address] [place] [address] PCP - [facility]08/05/23 Latrell Jack MD [address] [place] [address] PCP - [facility]08/16/24 Diomedes Fitzgerald DO [address] [place] [address] Referring RoxqkhriaMftkkxifp33/21/24 Sugar Arenas, [facility] [address] [place] [address] Social WorkerAd[facility] Red[facility] Team Status: Active Member Role/Relationship Status Dates [...] Medicine08/05/23 Latrell Jack MD [address] [place] [address] PCP - [facility]08/16/24 Diomedes Fitzgerald DO [address] [place] [address] Referring YuwzjterlCxefvsrsr16/21/24 Sugar Arenas, REGISTERED DIETETIC TECHNICIAN [address] [place] [address] [facility] MedicineTeam MemberRelationshipSpecialtyStart DateEnd Date Latrell Jack MD [facility]/05/23 Latrell Jack MD [address] [place] [address] PCP - [facility]08/16/24 Diomedes Fitzgerald DO [address] [place] [address] Referring YdfqlhnmsWyeppqejf58/21/24 Sugar Arenas, REGISTERED DIETETIC TECHNICIAN [address] [place] [address] [facility] Center[facility] MemberRelationshipSpecialtyStart DateEnd Date Latrell Jack MD PCP - [facility]08/05/23 Latrell Jack MD [address] [place] [address] PCP - [facility]08/16/24 Diomedes Fitzgerald DO [address] [place] [address] Referring PnrniuhvkMcfupbjph20/21/24 Sugar Arenas, REGISTERED DIETETIC TECHNICIAN [address] [place] [address] Social WorkerFamiPiedmont McDuffieTeam MemberRelationshipSpecialtyStart DateEnd Date Latrell Jack MD PCP - [facility]08/05/23 Latrell Jack MD [address] [place] [address] PCP - [facility]08/16/24 Diomedes Fitzgerald DO [address] [place] [address] Referring WpvpnmhtdRhcqlgjok70/21/24 Sugar Arenas, REGISTERED DIETETIC TECHNICIAN [address] [place] [address] Social WorkerAdventhealth RedmondTeam MemberRelationshipSpecialtyStart DateEnd Date Latrell Jack MD PCP - [facility]08/05/23 Latrell Jack MD [address] [place] [address] [facility]08/16/24 Diomedes Fitzgerald DO [address] [place] [address] Referring ZefyxtcolVkcvxjxlk56/21/24 Sugar Arenas, REGISTERED DIETETIC TECHNICIAN [address] [place] [address] Social WorkerAd[facility] Team Status: Inactive Member Role/Relationship Status Dates Latrell Jack MD Primary Care Provider Active S tart: April 10, 2025 End: April 10, 2025[facility] Radha Jackending ProviderActiveStart: April 10, 2025 [...] tart: April 29, 2025 End: April 29, 2025[facility] Luis M Jack ProviderActiveStart: April 29, 2025 End: April 29, 2025 Team Status: Inactive Member Role/Relationship Status Dates Latrell Jack MD Primary Care Provider Active S tart: May 08, 2025 End: May 08tim Arcos APRNAttending ProviderActiveStart: May 08, 2025 End: May 08, 2025 Reason for Visit (unrecogniz ed section and content) ReasonCommentsFollow-up6 mReasonCommentsNew Patient EvaluationHiatal Hernia WqjqkyQhjmmxwa08.15.25 CureLap Paraesophageal Hernia Repair/EGD 4 hours los 1 ReasonCommentsFollow-up3 mReasonOnset DateCommentsMedication Mgjpouue21/05/2024 ReasonCommentsMemory LossDysphagiaSpecialtyDiagnoses / ProceduresReferred By ContactReferred To ContactNeurology Diagnoses 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CMS/HCC) Other dysphagia Procedures [place] OFFICE/OUTPATIENT [facility] 60 MINUTES Latrell Jack MD [address] [place] [address] Diomedes Fitzgerald DO [address] [place] [address] Referral IDStatusReasonStart DateExpiration DateVisits RequestedVisits [id number] Specialty Services Required /[id number] LossSpecialtyDiagnoses / Procedures Referred By ContactReferred To Contact Diagnoses Preoperative examination Paraesophageal hernia Procedures REFER TO P[facility] - PREOPERATIVE OPTIMIZATION OFFICE/OUTPATIENT [facility] 60 MINUTES Katarzyna SnyderLISSETTE.[facility] [address] [place] [address] Referral IDStatusReasonStart DateExpiration DateVisits RequestedVisits [id number] PCP Requested Referral 1ReasonOnset DateCommentsMed Lxpdwz3007/30/2024ReasonComments Post OpReasonCommentsMedicare Annual Wellness Visit SubsequentwellnessReason CommentsMed RefillReasonOnset DateCommentsMed Cauqul8610/30/2024ReasonComments Follow-upER F/UReasonCommentsFollow-up6m Source Comments (unrecognize d section and content) In the event this informatio n is protected by the Federal Confidentiality of Alcohol and Drug Abuse Patient Records regulations: The Federal rules restrict any use of the information to criminally investigate or prosecute any alcohol or drug abuse patient.[facility] HospitalIn the event this information is protected by the Federal Confidentiality of Alcohol and Drug Abuse Patient Records regulations: The Federal rules restrict any use of the information to criminally investigate or prosecute any alcohol or drug abuse patient.[facility] HospitalIn the event this information is protected by the Federal Confidentiality of Alcohol and Drug Abuse Patient Records regulations: The Federal rules restrict any use of the information to criminally investigate or prosecute any alcohol or drug abuse patient.[facility] HospitalIn the event this information is protected by the Federal Confidentiality of Alcohol and Drug Abuse Patient Records regulations: The Federal rules restrict any use of the information to criminally investigate or prosecute any alcohol or drug abuse patient.[facility] HospitalIn the event this information is protected by the Federal Confidentiality of Alcohol and Drug Abuse Patient Records regulations: The Federal rules restrict any use of the information to criminally investigate or prosecute any alcohol or drug abuse patient.[facility] HospitalIn the event this information is protected by the Federal Confidentiality of Alcohol and Drug Abuse Patient Records regulations: The Federal rules restrict any use of the information to criminally investigate or prosecute any alcohol or drug abuse patient.[facility] Goals (unrecognized section and content) Goals [...] BE BASED ON THE PRIMARY CLINICAL RECORDS. [facility] [employer] provides no warranty or guarantee of the accuracy or completeness of information in this document.
--- OUTSIDE RECORDS SUMMARY | 2025-07-07 07:30 | XMS_ITS | Encounter Summary ---
Author Organization [facility] Address [address] [place] [address] Care Team Providers Care Liner Assembler Name Role Phone Latrell Mckeon MD Primary Care Provider [phone] Siomara Fitzgerald DO Unavailable Latrell Mckeon MD Unavailable Encounter Details DateTypeDepartmentCare Team (Latest Contact Info)Bqtgdnjraqd73/15/2025External Result Encounter [facility] External [facility] Unsolicited Robbin José MD [address] [address] Social History Tobacco UseTypesPacks/DayYears UsedDateSmoking Tobacco: FormerCigarettes1.270.7 07/10/1967 - 01/08/2012Smokeless Tobacco: NeverAlcohol UseStandard Drinks/Week CommentsYes4 (1 standard drink = 0.6 oz pure alcohol)Caffeine: 2-3 cups per day B1300 Health LiteracyAnswerDate RecordedHow often do you need to have someone help you when you read instructions, pamphlets, or other written material from your doctor or pharmacy?Phnmwikvo45/26/2024Social Connection and Isolation Panel AnswerDate RecordedIn a typical week, how many times do you talk on the phone with family, friends, or neighbors?More than three times a week02/02/2024How often do you get together with friends or relatives?Three times a week02/02/2024 How often do you attend pentecostalism or episcopalian services?Patient djnekaii70/26/2024 Do you belong to any clubs or organizations such as pentecostalism groups, unions, fraternal or athletic groups, or school groups?Patient yfivcvyx70/26/2024How often do you attend meetings of the clubs or organizations you belong to?Patient dzecubng32/26/2024re you , , , , never , or living with a partner?Never zccpcsd0402/02/2024UDIT-CAnswerDate RecordedQ1: How often do you have a drink containing alcohol?Monthly or less03/03/2024Q2: How many drinks containing alcohol do you have on a typical day when you are drinking?3 or Q3: How often do you have six or more drinks on one occasion?Less than uatkfnr0903/03/2024Overall Financial Resource Strain (CARDIA) AnswerDate RecordedHow hard is it for you to pay for the very basics like food, housing, medical care, and heating?Patient kjktlyfo18/26/2024HQ-2AnswerDate RecordedPatient Health Questionnaire-2 Nsehe032Finmck[facility] [place] of Occupational Health - Occupational Stress QuestionnaireAnswerDate RecordedDo you feel stress - tense, restless, nervous, or anxious, or unable to sleep at night because yourmind is troubled all the time - these days?To some ulptrf8302/02/2024 Exercise Vital SignAnswerDate RecordedOn average, how many days per week do you engage in moderate to strenuous exercise (like a brisk walk)?Patient declined 02/02/2024On average, how many minutes do you engage in exercise at this level? Patient /26/2024Hunger Vital SignAnswerDate RecordedWithin the past 12 months, you worried that your food would run out before you got the money to buy more.Patient encuveoj32/26/2024Within the past 12 months, the food you [...] homeless or living in a alf (including now)?No02/02/2024CommentsUnknownSex and Gender InformationValueDate RecordedSex Assigned at BirthNot on fileLegal SexFemale 09/21/2022 7:08 PM EDTGender IdentityNot on fileSexual OrientationNot on file documented as of this encounter Plan of Treatment DateTypeDepartmentCare Team (Latest Contact Info)Madbdveuied20/05/2026 9:50 AM ESTOffice Visit [facility] [address] [facility] [address] [place] [address] Layla Houston MD [address] [facility] [facility] [address] [place] [address] 07/30/2025 10:15 AM ESTOffice Visit [facility] [address] [address] Robbin José MD 703 [facility] 150 [place] [address] documented as of this encounter Procedures Procedure NamePriorityDate/TimeAssociated DiagnosisCommentsHEMOGRAM CBC WITHOUT DIFF ([facility])Msuzraq8406/23/2025 9:22 AM EST documented in this encounter Results * (ABNORMAL) HEMOGRAM CBC WITHOUT DIFF ([facility]) (06/23/2025 9:22 AM EST)Component ValueRef RangeTest MethodAnalysis TimePerformed AtPathologist SignatureWBC6.2 3.8 - 11.6 [CFU]/mL06/23/2025 9:44 AM ESTC[facility] CtrRBC3.66 3.60 - 5.00 10*6/uL06/23/2025 9:44 AM [facility] Ctr VINQVCDYNX08.911.8 - 15.4 g/dL06/23/2025 9:44 AM [facility] YamUJURGMAWHO62.9(L)34.0 - 46.4 %06/23/2025 9:44 AM [facility] WvcZDK74.780 - 100 fL06/23/2025 9:44 AM [facility] PbsJIH86.624.7 - 34.3 pg06/23/2025 9:44 AM [facility] Ctr MCHC35.2(H)32.0 - 35.0 g/dL06/23/2025 9:44 AM [facility] CtrRED CELL DISTRIBUTION WIDTH, RDW14.511.9 - 15.3 %06/23/2025 9:44 AM [facility] CtrPLATELET XATMN170040 - 450 10*3/uL06/23/2025 9:44 AM [facility] CtrMEAN PLATELET VOLUME, MPV8.36.3 - 10.7 fL06/23/2025 9:44 AM [facility] CtrSpecimen (Source) Anatomical Location / LateralityCollection Method / VolumeCollection Time Received TimeBlood (Blood)06/23/2025 9:22 AM EST06/23/2025 9:37 AM EST Narrative Authorizing ProviderResult TypeResult StatusAlbert Arnav Cárdenas MDLAB BLOOD ORDERABLESFinal ResultPerforming OrganizationAddressCity/State/ZIP CodePhone Number [facility] [address] [place] [address], [facility] [address] [place] [address] documented in this encounter Visit Diagnoses Not on filedocumented in this encounter Additional Health Concerns AssessmentNoted TimePHQ-9 Depression Total Score: 10:00 AM EST documented as of this encounter Care Teams Team MemberRelationshipSpecialtyStart DateEnd Date Latrell Mckeon MD [address] [facility] [place] [address] PCP - GeneralFamily Medicine1/27/24 Latrell Mckeon MD [address] [facility] [place] [address] PCP - [facility]08/16/24 Siomara Fitzgerald DO [address] [place] [address] Referring WlythcfdqUhgegowhq81/21/24documented as of this encounter
--- OUTSIDE RECORDS SUMMARY | 2025-07-07 07:30 | XMS_ITS | Encounter Summary ---
Author Organization [facility] Address [address] [place] [address] Care Team Providers Care Industrial Machine Assembler Name Role Phone Latrell Mckeon MD Primary Care Provider [phone] Siomara Fitzgerald DO Unavailable [phone] Latrell Mckeon MD Unavailable Encounter Details DateTypeDepartmentCare Team (Latest Contact Info)Umvviouvwff32/19/2025Travel Social History Tobacco UseTypesPacks/DayYears UsedDateSmoking Tobacco: FormerCigarettes1.270.7 07/10/1967 - 01/08/2012Smokeless Tobacco: NeverAlcohol UseStandard Drinks/Week CommentsYes4 (1 standard drink = 0.6 oz pure alcohol)Caffeine: 2-3 cups per day B1300 Health LiteracyAnswerDate RecordedHow often do you need to have someone help you when you read instructions, pamphlets, or other written material from your doctor or pharmacy?Eyuoykigm90/26/2024Social Connection and Isolation Panel AnswerDate RecordedIn a typical week, how many times do you talk on the phone with family, friends, or neighbors?More than three times a week02/02/2024How often do you get together with friends or relatives?Three times a week02/02/2024 How often do you attend protestant or mosque services?Patient dkoljhmz05/26/2024 Do you belong to any clubs or organizations such as protestant groups, unions, fraternal or athletic groups, or school groups?Patient syofxssc85/26/2024How often do you attend meetings of the clubs or organizations you belong to?Patient deadmjbg33/26/2024re you , , , , never , or living with a partner?Never vjyygcx9002/02/2024UDIT-CAnswerDate RecordedQ1: How often do you have a drink containing alcohol?Monthly or less03/03/2024Q2: How many drinks containing alcohol do you have on a typical day when you are drinking?3 or Q3: How often do you have six or more drinks on one occasion?Less than fhizfia2303/03/2024Overall Financial Resource Strain (CARDIA) AnswerDate RecordedHow hard is it for you to pay for the very basics like food, housing, medical care, and heating?Patient bfniptkq35/26/2024HQ-2AnswerDate RecordedPatient Health Questionnaire-2 Bpgjr741Fincedar city hospital [place] of Occupational Health - Occupational Stress QuestionnaireAnswerDate RecordedDo you feel stress - tense, restless, nervous, or anxious, or unable to sleep at night because yourmind is troubled all the time - these days?To some hippdp7602/02/2024 Exercise Vital SignAnswerDate RecordedOn average, how many days per week do you engage in moderate to strenuous exercise (like a brisk walk)?Patient declined 02/02/2024On average, how many minutes do you engage in exercise at this level? Patient bvduaily15/26/2024Hunger Vital SignAnswerDate RecordedWithin the past 12 months, you worried that your food would run out before you got the money to buy more.Patient lujqlmbx62/26/2024Within the past 12 months, the food you [...] homeless or living in a fpc (including now)?No4CommentsUnknownSex and Gender InformationValueDate RecordedSex Assigned at BirthNot on fileLegal SexFemale 09/21/2022 7:08 PM EDTGender IdentityNot on fileSexual OrientationNot on file documented as of this encounter Plan of Treatment DateTypeDepartmentCare Team (Latest Contact Info)Vatxafzmesv06/05/2026 9:50 AM ESTOffice Visit [facility] [address] [facility] [address] [place] [address] Layla Houston MD 112 [facility] 130 [place] [address] 07/30/2025 10:15 AM ESTOffice Visit [facility] 703 [facility] 150 [place] [address] Robbin José MD 703 [facility] 150 [place] [address] documented as of this encounter Visit Diagnoses Not on filedocumented in this encounter Additional Health Concerns AssessmentNoted TimePHQ-9 Depression Total Score: 10:00 AM EST documented as of this encounter Care Teams Team MemberRelationshipSpecialtyStart DateEnd Date Latrell Mckeon MD [address] [place] [address] PCP - GeneralFamily Medicine08/05/23 Latrell Mckeon MD [address] [place] [address] PCP - [facility]08/16/24 Siomara Fitzgerald DO [address] [place] [address] Referring AdizjjzfxQqpvlmevf87/21/24documented as of this encounter
--- OUTSIDE RECORDS SUMMARY | 2025-07-07 07:30 | XMS_ITS | Patient Health Record ---
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) ActiveconfirmedProblemLumbar radiculopathy (431960153)Radiculopathy, lumbar region (M54.16)ActiveconfirmedProblemPain in right foot (707449348608201)Right foot pain (M79.671)Activeconfirmed Plan Of Treatment Pending Test Test Name Order Date XR foot RT min 3V 04/10/2024 Insurance Providers Payer Name Payer Address Payer Phone Subscriber Number Group Number Insured Name Patient Relationship to Insured Coverage Start Date Coverage End Date MEDICARE RAILROAD [address] [address] [place], [place] [id number] Ariadne Obrien - patient is the [facility] [address] [address] [place], [place] [id number], SharonSelf - patient is the insured Medical (General) History Surgical History Surgery Date(Month/Year) right ankle sx right ankle [id number]
--- OUTSIDE RECORDS SUMMARY | 2025-07-07 07:30 | XMS_ITS | Clinical Summary ---
Author Organization [employer] Address [id number] [address] [place] [address] Care Team Providers Care Other Wood Processing Machine Operator Name Role Phone Latrell Mckeon MD Primary Care Provider [phone] Allergies No known active allergies Medications MedicationSigDispense QuantityRefillsLast FilledStart DateEnd DateStatus zolpidem (AMBIEN) 10 mg tablet Take 10 mg by mouth daily.10/13/2020ctive famotidine (PEPCID) 40 mg tablet Take 40 mg by mouth 2 (two) times a day.11/08/2020ctive pantoprazole (PROTONIX) 40 mg EC tablet Take 40 mg by mouth daily.Active kbcmyseb-ymgj-HX-calcium &mins (THERAGRAN-M) 9 mg iron-400 mcg tablet [...] diseaseMotherRelationNameStatusCommentsFatherDeceasedMotherDeceased Social History Tobacco UseTypesPacks/DayYears UsedDateSmoking Tobacco: VomspeCcrusmrxlz5Nwgx: 2011Smokeless Tobacco: NeverAlcohol UseStandard Drinks/WeekCommentsYes0 (1 standard drink = 0.6 oz pure alcohol)socialCommentsNoSex and Gender InformationValueDate RecordedSex Assigned at BirthNot on fileLegal SexFemale 10/21/2020 10:40 AM EDTGender IdentityNot on fileSexual OrientationNot on file Last Filed Vital Signs Vital SignReadingTime TakenCommentsBlood Piwlodyw917/9806 12:37 PM EDT Znork429212/09/2020 12:37 PM DFXFplzjvzmjtj44.3 ??C (97.3 ??F)12/09/2020 11:07 AM EDTRespiratory Fnnb834112/09/2020 12:37 PM EDTOxygen Teesuscmds27%12/09/2020 12:37 PM EDTInhaled Oxygen Concentration--Wwgvix413.9 kg (229 lb)12/09/2020 8:19 AM WHZZjewzt708 cm (5' 3 )12/09/2020 8:19 AM EDTBody Mass Index40.57012/09/2020 8:19 AM EDT Plan of Treatment Health MaintenanceDue DateLast DoneCommentsDepression Qhdqmzpfn20/15/1964Tobacco Odzvagitu61/15/1964Adult BMI Zmreggmuy59/15/1970DTaP,Tdap and Td Vaccines (1 - Tdap)09/21/1970Zoster (Shingles) Vaccine (1 of 2)09/21/2001Fall Risk Screening 09/21/2016COVID-19 Vaccine ( season)/10/2020, 09/14/2020, 08/27/2020Influenza Mvnsejm38/10/2020, 06/16/2020, 05/16/2019, Additional history existsRSV ( or age 60+ yrs) (1 - 1-dose 75+ series) 09/21/2026 Medical Devices Not on file Insurance Care Teams Team MemberRelationshipSpecialtyStart DateEnd Date Latrell Mckeon MD PCP - GeneralFamily Medicine11/09/20
--- OUTSIDE RECORDS SUMMARY | 2025-07-07 07:30 | XMS_ITS | Clinical Summary ---
Author Organization [facility] Healthcare Address [address] [place] [address] Care Team Providers Care Accessibility Lift Technician Name Role Phone Latrell Mckeon MD Primary Care Provider [phone] Siomara Fitzgerald DO Unavailable [phone] Latrell Mckeon MD Unavailable Allergies No [...] tablet Take 2 mg by mouth at pjfyrqs03/28/2025Active losartan (Cozaar) 100 MG tablet Indications:Essential hypertension, [...] mirtazapine (Remeron) 15 MG tablet Daily at wyjrtea36/28/2025Active amLODIPine (Norvasc) 5 MG tablet Take 5 [...] by mouth every 12 (twelve) hours if qaibpe44 Discontinued(Therapy completed) acetaminophen (Tylenol) 500 MG tablet Take 500 mg by mouth every 6 (six) hours if needed for mild pain or moderate pain Take 2 tabs every6 hours as needed for pain. Discontinued(Therapy completed) Active Problems ProblemNoted DateDiagnosed RnthFgyqehq34/24/2025Dysfunction of left eustachian tube06/02/2025Major depressive disorder, recurrent, ihlpisjf74/24/2025Primary osteoarthritis, left efxuakdf41/24/3173Dhqwpfptibsovp35/24/2025Tinnitus 06/02/2025Impingement of left qzudzpxg97/24/2025Former hxwpsy9602/24/2025 Assessment & Plan (02/24/2025 4:01 PM EDT): Quit in 2011 but prior 1 PPD for 40 plus years. Check LDCT chest. Degenerative lumbar spinal znpmiygw34/28/2025 Assessment & Plan (12/04/2024 2:25 PM EDT): [...] (05/15/2024 10:33 AM EST): Weight loss indicated. Minrha7503/03/20248129Vsmzwcbbz28/02/2024 Assessment & Plan (02/09/2024 10:30 AM EDT): Problems swallowing and refer to GI for endoscopy. Senile rpnzcsil61/02/2024 Assessment & Plan (08/27/2024 11:05 AM EST): Follow with neurology. Assessment & Plan (02/09/2024 10:32 AM EDT): Worsening memory and family history of Alzheimer's. Start aricept and refer to neurology for evaluation. Qthcryhgzwu99/04/2024Essential hypertension, wuceud2808/11/2023 Assessment & Plan (02/24/2025 4:00 PM EDT): [...] stable and continue spiriva. Use albuterol PRN. Ejtsspkcmkrp56/02/2024Lower extremity edema08/11/2023Osteopenia of lumbar spine 08/11/2023TIA (transient ischemic attack)08/11/2023OSA (obstructive sleep apnea) 08/11/2023 Assessment & Plan (05/15/2024 10:35 AM EST): Sleeping well with CPAP and continue nightly. The patient is benefiting from PAP therapy. Assessment & Plan (02/09/2024 10:31 AM EDT): Sleeping well with CPAP and continue nightly. The patient is benefiting from PAP therapy. Primary ogtamrdy51/02/2024 Assessment & Plan (02/24/2025 4:01 PM EDT): Sleeping well with lunesta and continue. Assessment & Plan (05/15/2024 10:35 AM EST): Sleeping well with ambien and continue. Assessment & Plan (02/09/2024 10:31 AM EDT): Sleeping well with ambien and continue. Assessment & Plan (08/11/2023 10:22 AM EST): Sleeping well with ambien and continue. Encounter for long-term (current) use of tvbyaazhyvl91/02/2024Seasonal allergic rhinitis due to vjmsqr9808/11/2023 Assessment & Plan (08/11/2023 10:23 AM EST): Increased symptoms and use flonase daily. Resolved Problems ProblemNoted DateDiagnosed DateResolved ZmtmSismlpdwlom70 Hiatal hernia with gastroesophageal reflux disease without dxlpdlhjenq18/02/2024 12/04/2024 Assessment & Plan (05/15/2024 10:34 AM EST): GERD controlled but still problems swallowing. Scheduled for surgery 07/24. Assessment & Plan (02/09/2024 10:31 AM EDT): Denies reflux but developed dysphagia. Increase protonix. Assessment & Plan (08/11/2023 10:22 AM EST): Symptoms controlled with protonix and continue. Morbid obesity due to excess owzkalvz27 Encounters DateTypeDepartmentCare YzcwSgoqypsxvjr36/22/2025 9:45 AM ESTOffice Visit [facility] [address] [place] [phone] Robbin José MD Calculus of gallbladder with acute cholecystitis without obstruction (Primary Dx); Rpnebowqtdpjjfihwff62/22/3981Iehlay46/19/0242Xtckvy40/17/9066Yaxlds35/17/2025 Orders Only [facility] [address] [place] [phone] Robbin José MD 06/24/20251618Isllba61/15/2025External Result Encounter [facility] External Department Unsolicited Robbin José MD 06/23/2025External Result Encounter [facility] External Department Unsolicited Robbin José MD 06/22/2025External Result Encounter [facility] External Department Unsolicited Robbin José MD 06/22/2025External Result Encounter [facility] External Department Unsolicited Robbin José MD 06/09/2025 1:10 PM ESTOffice Visit [facility] [address] [facility] [address] [place] [address] Layla Houston MD Asymmetric SNHL (sensorineural hearing loss) (Primary Dx); Left-sided dlohvttl43/01/2025amboo flowsheet [facility] [address] [facility] [address] [place] [address] Layla Houston MD 06/09/20258571Mcbzym90/26/2025 3:00 PM ESTOffice Visit [facility] [address] [place] [phone] Sugar Cruz AUD Sensorineural hearing loss, bilateral (Primary Dx); Tinnitus, axujjxrrm46/26/2025amboo flowsheet [facility] [address] [place] [phone] Sugar Cruz AUD from Last 3 Months Immunizations ImmunizationAdministration DatesNext DueInfluenza, High Dose Seasonal, Preservative Free05/16/2019,05/12/2018Influenza, High-dose Seasonal, Quadrivalent, Preservative Free04/12/2021Influenza, Injectable, MDCK, preservative free04/16/2015Influenza, Seasonal, Quadrivalent, Adjuvanted 05/03/2022,06/16/2020Influenza, injectable, quadrivalent, preservative free 05/10/2016Influenza, live, intranasal, baalspvndgkp23/06/2018Influenza, trivalent, hdiomzopvp42/06/2024Pneumococcal Conjugate PCV 13011/25/2021, 01/31/2018Pneumococcal Polysaccharide CNUE304607/16/2018RSV, recombinant, protein subunit RSVpreF, adjuvant reconstitu, 120mcg/0.5mL, PF (Arexvy)03/27/2023 Family History Medical HistoryRelationNameCommentsCancerFatherTom McHenryDiabetesFather's BrotherAlzheimer's diseaseFather's SisterKatherine RankinAlzheimer's disease MotherMadge GrinnellArthritisMotherMadge GrinnellHeart attackMotherMadge GrinnellParkinsonismSiblingRelationNameStatusCommentsFatherTom McHenryDeceased Father's BrotherFather's SisterKatherine RankinMotherMadge GrinnellDeceased SiblingAlive Social History Tobacco UseTypesPacks/DayYears UsedDateSmoking Tobacco: FormerCigarettes1.270.7 07/10/1967 - 01/08/2012Smokeless Tobacco: Never Tobacco Cessation:Counseling Given: Not Answered Alcohol UseStandard Drinks/WeekCommentsYes4 (1 standard drink = 0.6 oz pure alcohol)Caffeine: 2-3 cups per [id number] Health LiteracyAnswerDate RecordedHow often do you need [...] times a week02/02/2024How often do you attend mormonism or sikh services?Patient cnbguchj87/26/2024o you belong to any clubs or organizations such as mormonism groups, unions, fraternal or athletic lavell ups, or school groups?Patient /26/2024How often do you attend meetings of the clubs or organizations you belong to?Patient oxyctwrj72/26/2024re you , , , , never , or living with a partner? Never tavqqwv5202/02/2024UDIT-CAnswerDate RecordedQ1: How often do you have a [...] like food, housing, medical care, and heating?Patient wmmvtyxo10/26/2024HQ-2AnswerDate RecordedPatient Health Questionnaire-2 Plstf720FinSelect Specialty Hospital [facility] of Occupational Health - Occupational Stress QuestionnaireAnswerDate RecordedDo you feel stress - tense, restless, nervous, or anxious, or unable to sleep at night because yourmind is troubled all the time - these days?To some mkabrc0502/02/2024Exercise Vital Sign AnswerDate RecordedOn average, how many days per week do you engage in moderate to strenuous exercise (like a brisk walk)?Patient yoghqnvg45/26/2024On average, how many minutes do you engage in exercise at this level?Patient declined 02/02/2024Hunger Vital SignAnswerDate RecordedWithin the past 12 months, you worried that your food would run out before you got the money to buymore.Patient olynoldm80/26/2024Within the past 12 months, the food you bought just didn't last and you didn't have money to get more.Patient yqduxujo46/26/2024RAPARE - TransportationAnswerDate RecordedIn the past 12 months, [...] Last Filed Vital Signs Vital SignReadingTime TakenCommentsBlood Zvshhbsc657/6206/30/2025 9:48 AM EST Tlyxg169806/09/2025 12:58 PM GDVJjqkkapkyiz28.2 ??C (97.1 ??F)02/24/2025 11:00 AM EDTRespiratory Tcny477502/24/2025 11:00 AM EDTOxygen Hdazlkmwyv69%02/24/2025 11:00 AM EDTInhaled Oxygen Concentration--Hagyli518 kg (227 lb)06/30/2025 9:48 AM EST Gjnvaj926.6 cm (5' 4 )06/30/2025 9:48 AM ESTBody Mass Index38.9606/30/2025 9:48 AM EST Plan of Treatment DateTypeDepartmentCare Team (Latest Contact Info)Tkwdyjapehg45/05/2026 9:50 AM ESTOffice Visit [facility] [address] [facility] [address] [place] [address] Layla Houston MD 112 [facility] [address] [place] [address] 07/30/2025 10:15 AM ESTOffice Visit [facility] [address] [phone] Robbin José MD 703 [facility] [address] [place] [address] Health MaintenanceDue DateLast DoneCommentsCT Xyclrootdjsc16/15/1952FIT-DNA 1950FIT1950FOBT1950Lung Cancer Screening Shared Decision Sypdkk27 1950 3331Jxenfbfpsdwdh63/15/1952Medicare Annual Wellness (AWV)08/27/2025 08/27/20243210Xhkajbsru31, 02/27/2025, 11/28/2023, Additional history fcdwajPyhexrudmrg31/05/203404/11/2023, 10/13/2023olorectal Cancer Nlzunqvid48/05/2034Pneumococcal Vaccine: 65+ AesxyBnpgglgxv15/19/2022, 05/16/2019, 01/31/2018Influenza JiqepceDiaghqnvf59/16/2025, 05/15/2024, 05/03/2022, Additional history exists Procedures Procedure NamePriorityDate/TimeAssociated DiagnosisCommentsHEPATIC FUNCTION RREELSmvgajj75/15/2025 9:22 AM EST [place]EMOGRAM [place]Wspyvjl6606/23/2025 9:22 AM EST GENERAL ZPVYPKCWSCnccvat48/14/2025 1:14 PM ESTBASIC METABOLIC PANELRoutine 06/22/2025 4:25 AM EST HEPATIC FUNCTION EISFZHbxzldt35/14/2025 4:25 AM EST HEMOGRAM CBC WITHOUT DIFF [place]Nvsawba5006/22/2025 4:25 AM EST AUDITORY FUNCTION MCWYZJgsyryg34/26/2025 3:30 PM EST BI MAMMOGRAM SCREENING CMAIMKCAZNcljgak08/21/2025 2:18 PM EDT Breast cancer screening by mammogram from Last 3 Months or Most Recently Relevant to Health Maintenance Results * (ABNORMAL) HEMOGRAM CBC WITHOUT DIFF [place] (06/23/2025 9:22 AM EST) Only the most recent of2 resultswithin the time period is included. ComponentValueRef RangeTest MethodAnalysis TimePerformed AtPathologist Signature WBC6.23.8 - 11.6 [CFU]/mL06/23/2025 9:44 AM [facility] CtrRBC 3.663.60 - 5.00 10*6/uL06/23/2025 9:44 AM [facility] CKPNXLOLCK00.911.8 - 15.4 g/dL12/ 9:44 AM [facility] HryOKRVHAEFWP26.9(L)34.0 - 46.4 %06/23/2025 9:44 AM [facility] XzsXHC68.780 - 100 fL06/23/2025 9:44 AM [facility] LlbMHY24.624.7 - 34.3 pg06/23/2025 9:44 AM [facility] CtrMCHC 35.2(H)32.0 - 35.0 g/dL06/23/2025 9:44 AM [facility] CtrRED CELL DISTRIBUTION WIDTH, RDW14.511.9 - 15.3 %06/23/2025 9:44 AM [facility] CtrPLATELET CIEDZ019417 - 450 10*3/uL06/23/2025 9:44 AM [facility] CtrMEAN PLATELET VOLUME, MPV8.36.3 - 10.7 fL 06/23/2025 9:44 AM [facility] CtrSpecimen (Source)Anatomical Location / LateralityCollection Method / VolumeCollection TimeReceived TimeBlood (Blood)06/23/2025 9:22 AM EST06/23/2025 9:37 AM EST Narrative Authorizing ProviderResult TypeResult StatusAlSHANNAN Roman BLOOD ORDERABLESFinal ResultPerforming OrganizationAddressCity/State/ZIP CodePhone Number [facility] [address] [place] [address], [facility] [address] [place] [address] * (ABNORMAL) Hepatic function panel (06/23/2025 9:22 AM EST) Only the most recent of2 resultswithin the time period is included. ComponentValueRef RangeTest MethodAnalysis TimePerformed AtPathologist Signature TOTAL PROTEIN6.66.4 - 8.9 g/dL06/23/2025 10:06 AM [facility] CtrALBUMIN LEVEL3.3(L)3.5 - 5.7 g/dL06/23/2025 10:06 AM [facility] CtrGLOBULIN3.3g/dL06/23/2025 10:06 AM [facility] ALBUMIN/GLOBULIN RATIO1.012 10:06 AM [facility] BILIRUBIN,TOTAL1.7(H)0.3 - 1.0 mg/dL06/23/2025 10:06 AM [facility] CtrComment: Samples from patients who have taken Naproxen have shown spurious elevation in Total Bilirubin levels. ??A metabolite of Naproxen, O-desmethylnaproxen, has been shown to interfere with the Jendrassik-Grof method for measuring Total Bilirubin. BILIRUBIN,DIRECT1.00(H)0.03 - 0.18 mg/dL06/23/2025 10:06 AM [facility] CtrBILIRUBIN,INDIRECT0.7mg/dL06/23/2025 10:06 AM [facility] CtrASPARTATE AMINO GHGGYGIVPIR137(H)13 - 39 U/L108/24/2024 10:06 AM [facility] CtrALANINE YNFUJKJSMJCFCDCD919(H)7 - 52 U/L 06/23/2025 10:06 AM [facility] CtrALKALINE AVDQOZJQWQN693(H) 34 - 104 U/L108/24/2024 10:06 AM [facility] CtrSpecimen (Source)Anatomical Location / LateralityCollection Method / VolumeCollection TimeReceived TimeOtherTopography unknown / Gkbsoty3406/23/2025 9:22 AM EST 06/23/2025 9:37 AM EST Narrative Authorizing ProviderResult TypeResult StatusSHANNAN Hope BLOOD ORDERABLESFinal ResultPerforming OrganizationAddressCity/State/[facility] CodePhone Number [facility] [address] [place] [address], [facility] [address] [place] [address] * GENERAL PATHOLOGY (06/22/2025 1:14 PM EST) Narrative Authorizing ProviderResult TypeResult DOC ToribioLINISYNCFinal Result * (ABNORMAL) Basic metabolic panel (06/22/2025 4:25 AM EST)ComponentValueRef RangeTest MethodAnalysis TimePerformed AtPathologist XvvvkjpdqStzvdnk685(H)70 - 100 mg/dL06/22/2025 5:21 AM [facility] CtrComment: Random Glucose Reference Range is dependent on time and content of last meal. Glucose of more than 200 mg/dL in a nonstressed, ambulatory subject supports the diagnosis of Diabetes Mellitus. ADA recommended reference range QAV263 - 25 mg/dL06/22/2025 5:21 AM [facility] CtrCREATININE 0.990.60 - 1.20 mg/dL06/22/2025 5:21 AM [facility] ESTIMATED GFR>60. 5:21 AM [facility] NmoCzvxom577 136 - 145 mmol/L108/23/2024 5:21 AM [facility] CtrPotassium, Bld3.3(L)3.5 - 5.1 mmol/L108/23/2024 5:21 AM [facility] Gaevccnf116(H)98 - 107 mmol/L108/23/2024 5:21 AM [facility] CtrCarbon Liraqqr89.4(L)21.0 - 31.0 mmol/L108/23/2024 5:21 AM [facility] CtrAnion Gap11.96.0 - 15. 5:21 AM [facility] CtrCalcium8.68.6 - 10.3 mg/dL06/22/2025 5:21 AM [facility] CtrCREATININE CLR CALC CGDGYRTE72.42108/23/2024 5:21 AM [facility] CtrSpecimen (Source)Anatomical Location / Laterality Collection Method / VolumeCollection TimeReceived TimeOtherTopography unknown / Eujukvj1606/22/2025 4:25 AM EST06/22/2025 4:49 AM EST Narrative Authorizing ProviderResult TypeResult StatusAlbert Arnav Cárdenas MDLAB BLOOD ORDERABLESFinal ResultPerforming OrganizationAddressCity/State/ZIP CodePhone Number [facility] [address] [place] [address], [facility] [address] [place] [address] * Auditory function tests (06/04/2025 3:30 PM EST) Narrative Sugar Cruz, AUD - 06/04/2025 3:30 PM EST Pure Tone Audiometry Audio indicated ??normal hearing sensitivity 250-4000 Hz, sloping to a mild hearing loss 9324-3520 Hz in the right ear. The left ear exhibited normal hearing 250-3000 Hz, sloping to a mild to moderate sensorineural hearing loss 4060-6799 Hz. Hallpike: Yielded negative results in both positions tested. Authorizing ProviderResult TypeResult StatusSugar Cruz AUDAUDIOLOGY SERVICES ORDERABLESFinal Result * Bilateral screening mammogram (02/27/2025 2:18 PM EDT) Narrative Authorizing ProviderResult TypeResult StatusLatrell Mckeon MDIMAnette BI PROCEDURES Final ResultPerforming OrganizationAddressCity/State/ZIP CodePhone Number [address] [address], from Last 3 Months or Most Recently Relevant to Health [place] [address] Care Teams Team MemberRelationshipSpecialtyStart DateEnd Date Latrell Mckeon MD [address] [place] [phone] [facility] - [facility] Latrell Mckeon MD [address] [place] [phone] PCP - ACO [facility]08/16/24 Siomara Fitzgerald DO [address] [place] [address] Referring LxqioylwnGmfqnzwyt72/21/24
--- OUTSIDE RECORDS SUMMARY | 2025-07-07 07:31 | XMS_ITS | Encounter Summary ---
Author Organization [facility] Address [address] [place] [address] Care Team Providers Care Film Sorter Name Role Phone Latrell Mckeon MD Primary Care Provider [phone] Siomara Fitzgerald DO Unavailable [phone] Latrell Mckeon MD Unavailable Encounter Details DateTypeDepartmentCare Team (Latest Contact Info)Nhgqiihpogl15/22/2025Travel Social History Tobacco UseTypesPacks/DayYears UsedDateSmoking Tobacco: FormerCigarettes1.270.7 07/10/1967 - 01/08/2012Smokeless Tobacco: NeverAlcohol UseStandard Drinks/Week CommentsYes4 (1 standard drink = 0.6 oz pure alcohol)Caffeine: 2-3 cups per day B1300 Health LiteracyAnswerDate RecordedHow often do you need to have someone help you when you read instructions, pamphlets, or other written material from your doctor or pharmacy?Fsjhyzbvl49/26/2024Social Connection and Isolation Panel AnswerDate RecordedIn a typical week, how many times do you talk on the phone with family, friends, or neighbors?More than three times a week02/02/2024How often do you get together with friends or relatives?Three times a week02/02/2024 How often do you attend gnosticist or sikhism services?Patient tjiwxsdz54/26/2024 Do you belong to any clubs or organizations such as gnosticist groups, unions, fraternal or athletic groups, or school groups?Patient nuqdsfdf69/26/2024How often do you attend meetings of the clubs or organizations you belong to?Patient /26/2024re you , , , , never , or living with a partner?Never jsxpbtg5402/02/2024UDIT-CAnswerDate RecordedQ1: How often do you have a drink containing alcohol?Monthly or less03/03/2024Q2: How many drinks containing alcohol do you have on a typical day when you are drinking?3 or Q3: How often do you have six or more drinks on one occasion?Less than xztjnzk1303/03/2024Overall Financial Resource Strain (CARDIA) AnswerDate RecordedHow hard is it for you to pay for the very basics like food, housing, medical care, and heating?Patient onwyvuib69/26/2024HQ-2AnswerDate RecordedPatient Health Questionnaire-2 Dqzpk265Fin[facility] hospital [employer] of Occupational Health - Occupational Stress QuestionnaireAnswerDate RecordedDo you feel stress - tense, restless, nervous, or anxious, or unable to sleep at night because yourmind is troubled all the time - these days?To some jnunvd6002/02/2024 Exercise Vital SignAnswerDate RecordedOn average, how many days per week do you engage in moderate to strenuous exercise (like a brisk walk)?Patient declined 02/02/2024On average, how many minutes do you engage in exercise at this level? Patient muccjoku43/26/2024Hunger Vital SignAnswerDate RecordedWithin the past 12 months, you worried that your food would run out before you got the money to buy more.Patient inmyfvds74/26/2024Within the past 12 months, the food you [...] homeless or living in a assisted (including now)?No4CommentsUnknownSex and Gender InformationValueDate RecordedSex Assigned at BirthNot on fileLegal SexFemale 09/21/2022 7:08 PM EDTGender IdentityNot on fileSexual OrientationNot on file documented as of this encounter Plan of Treatment DateTypeDepartmentCare Team (Latest Contact Info)Cisorcmxapu64/05/2026 9:50 AM ESTOffice Visit [facility] [address] [facility] [address] [place] [phone] Layla Houston MD 112 [facility] [address] [place] [address] 07/30/2025 10:15 AM ESTOffice Visit [facility] [address] [facility] [address] [place] [phone] Robbin José MD 703 [facility] [address] [place] [address] documented as of this encounter Visit Diagnoses Not on filedocumented in this encounter Additional Health Concerns AssessmentNoted TimePHQ-9 Depression Total Score: 10:00 AM EST documented as of this encounter Care Teams Team MemberRelationshipSpecialtyStart DateEnd Date Latrell Mckeon MD [address] [place] [phone] PCP - GeneralFamily Medicine08/05/23 Latrell Mckeon MD [address] [place] [phone] PCP - ACO [facility]08/16/24 Siomara Fitzgerald DO [address] [place] [address] Referring LdtoubevkYgjzpdefh09/21/24documented as of this encounter
--- NOTE | 2025-07-07 07:36 | MR_ITS ---
The [address] [address] Patient Name: PARTH BOSS MRN: [id number] date: 1950 Sex: F Assigned Patient Location: LAB Current Patient Location: LAB Accession/Order Number: [id number] Exam Date: 07/07/2025 07:45 Report Date: 07/07/2025 10:33 At the request of: ANALILIA HUFF MD Procedure: MR head/brain wo/w con MRI BRAIN WITHOUT AND WITH INTRAVENOUS CONTRAST CLINICAL DATA: Left-sided tinnitus asymmetric sensorineural hearing loss COMPARISON: None No restricted diffusion. Ventricles and sulci noted mild generalized involutional changes with prominence of the ventral and sulci. Nonspecific focus T2 prolongation left frontal deep white matter identified, nonspecific, true to chronic microvascular changes. No shift midline structure basal cisterns are patent. Major intracranial arterial vascular flow was preserved. Intrinsic T2 signal within the inner ear structures is maintained. Unremarkable course and caliber of the cisternal and canalicular segments of the 7th and 8th cranial nerves. No abnormal retrocochlear enhancement identified. No abnormal enhancement identified elsewhere within brain. MR/MR head/brain wo/w con IMPRESSION: Nonspecific T2 prolongation left frontal white matter favor chronic microvascular changes. Negative for abnormal retrocochlear enhancement. Otherwise negative for acute intracranial process by MRI. Impression dictated by: Dante Armendariz M.D. 07/07/2025 10:33 AM Dictation Location: [place] [address] Electronically authenticated by: [id number] Y Date: 07/07/2025 10:33
[2025-07-07 07:44] LABS: Estimated GFR (African America 58 (>=60 mL/min/1.73m^2); Estimated GFR (Non-African Ame 48 (>=60 mL/min/1.73m^2)
== END 2025-07-07 07:27 | disposition home or self-care (01) ==
LOC: LAB 07:26
PROVIDERS: Pathology Anatomic Pathology & Clinical Pathology; PCP Family Medicine; Visit Provider Otolaryngology
DX: H90.3 Sensorineural hearing loss, bilateral (principal); H93.12 Tinnitus, left ear
CPT/HCPCS: 36415; 70553; 82565; A9575